=== PATIENT | male | born 1935 | race Caucasian/White ===

== ENCOUNTER 2020-11-07 13:48 | Outpatient (RCR) | payer MEDICARE, BC, SELFPAY | END 2020-11-07 23:59 | LOC: IMMUN 13:48 | PROVIDERS: PCP Internal Medicine; Visit Provider Family Medicine | DX: Z23 Encounter for immunization (principal) | CPT/HCPCS: 0011A; 0012A ==

== ENCOUNTER → 2025-06-21 05:00 | Outpatient (REF) | payer MEDICARE, SELFPAY ==
[2025-06-21 08:28] LABS: Hematocrit 21.5 % (40-54); Hemoglobin 6.9 g/dL (13.0-16.5); Mean Corp Hgb Conc 32.1 g/dL (32-36); Mean Corpuscular Volume 89.6 fL (80-94); Mean Platelet Vol. 8.7 fl (6.2-12.0); Platelet Count 457 K/mm3 (150-450); RBC Distribution Width CV 16.8 % (11.6-14.6); RBC Distribution Width SD 55.8 fl (35.1-43.9); Red Blood Count 2.40 M/mm3 (4.6-6.2); White Blood Count 14.3 K/mm3 (4.4-11.0)
[2025-06-21 08:44] LABS: Anion Gap 10 (5-15); BUN 47 mg/dL (4-19); BUN/Creat Ratio 25.4 RATIO (10-20); Calcium,Total 8.4 mg/dL (7.6-11.0); Carbon Dioxide 29.6 mmol/L (21.0-32.0); Chloride 97 mmol/L (98-108); Glucose 93 mg/dL (70-99); Potassium 3.8 mmol/L (3.3-5.1)
== END ==
LOC: OLS.ACH 05:00
PROVIDERS: PCP Internal Medicine; Visit Provider Internal Medicine
DX: N18.30 Chronic kidney disease, stage 3 unspecified (principal); D53.9 Nutritional anemia, unspecified
CPT/HCPCS: 36415; 80048; 85027

== ENCOUNTER → 2025-06-24 05:00 | Outpatient (REF) | payer MEDICARE, SELFPAY ==
--- OUTSIDE RECORDS SUMMARY | 2025-06-24 04:10 | XMS RPT_ITS | CCD ---
Author Organization [facility] Care Team Providers Care Chief Inspector Name Role Phone Aliya Tadeo RN Unavailable Unavailable Spencer Cartagena Attending Unavailable Negro Messer Primary Care Unavailable SAGAR GILLIAM Attending Unavailable ALEJANDRO QUEEN Attending Unavailable HARVINDER, EBER Attending Unavailable EBER HESS Attending Unavailable CLARA, ALBARO Admitting Unavailable CLARA, ALBARO Attending Unavailable PRECIOUS LEWIS Consulting Unavailable Aliya Tadeo RN Unavailable Unavailable Unavailable Unavailable Unavailable Medications Current Medications Medication Drug Class(es) Dates Sig (Normalized) Sig (Original) atorvastatin 20 mg oral tablet (10 sources) HMG-CoA Reductase Inhibitor Start: 04-17-2025 End: 04-17-2026 take 1 tablet by mouth once daily atorvastatin (Lipitor) 20 MG tablet Take 1 tablet (20 mg) by mouth Nightly. 30 tablet 1 04/17/2025 04/17/2026 Active Start: 04-06-2025 End: 04-17-2025 docusate sodium 50 mg / sennosides, intermediate 8.6 mg oral tablet (10 sources) Start: 04-17-2025 End: 04-17-2026 take 2 tablets by mouth twice daily senna-docusate sodium (Senokot-S) 8.6-50 MG tablet Take 2 tablets by mouth 2 times daily. 120 tablet 11 04/17/2025 04/17/2026 Active Start: 04-10-2025 End: 04-17-2026 hydrALAZINE hydrochloride 10 mg oral tablet (12 sources) Arteriolar Vasodilator Start: 04-15-2025 End: 04-17-2026 take 1 tablet by mouth three times daily hydrALAZINE (Apresoline) 10 MG tablet Take 1 tablet (10 mg) by mouth 3 times daily. 90 tablet 1 04/17/2025 04/17/2026 Active Start: 04-06-2025 End: 04-15-2025 24 hr metoprolol succinate 25 mg extended release oral tablet (10 sources) beta-Adrenergic Adán Start: 04-10-2025 End: 04-18-2026 take 1 tablet by mouth once daily metoprolol succinate XL (Toprol-XL) 25 MG 24 hr tablet Take 1 tablet (25 mg) by mouth daily. Do not crush or chew. 30 tablet 11 04/18/2025 04/18/2026 Active spironolactone 25 mg oral tablet (10 sources) Aldosterone Antagonist Start: 04-13-2025 End: 04-18-2026 take 1 tablet by mouth once daily spironolactone (Aldactone) 25 MG tablet Take 1 tablet (25 mg) by mouth daily. 30 tablet 11 04/18/2025 04/18/2026 Active torsemide (10 sources) Loop Diuretic Start: 04-18-2025 End: 04-18-2026 take 1 tablet by mouth once daily Torsemide 40 MG tablet Take 40 mg by mouth daily. 40 tablet 1 04/18/2025 04/18/2026 Active Start: 04-16-2025 End: 04-17-2025 Start: 04-13-2025 End: 04-14-2025 (2 sources) Start: 04-18-2025 End: 04-18-2026 Completed/Discontinued Medications Medication Drug Class(es) Dates Sig (Normalized) Sig (Original) carvedilol 3.125 mg oral tablet (2 sources) alpha-Adrenergic Adán, beta-Adrenergic Adán Start: 04-06-2025 End: 04-10-2025 2 ml furosemide 10 mg/ml injection (14 sources) Loop Diuretic Start: 04-14-2025 End: 04-16-2025 Start: 04-06-2025 End: 04-08-2025 Start: 04-05-2025 End: 04-12-2025 10 ml lidocaine hydrochlorid e 10 mg/ml injection (4 sources) Antiarrhythmic, Amide Local Anesthetic Start: 04-14-2025 End: 04-14-2025 Start: 04-08-2025 End: 04-17-2025 1 ml LORazepam 2 mg/ml injection (2 sources) Benzodiazepine Start: 04-06-2025 End: 04-08-2025 take 0.5 mg intravenously every four hours as needed for anxiety 50 ml magnesium sulfate 40 mg/ml injection (4 sources) Start: 04-11-2025 End: 04-11-2025 Start: 04-08-2025 End: 04-08-2025 mupirocin 0.02 mg/mg topical ointment (2 sources) RNA Synthetase Inhibitor Antibacterial Start: 04-08-2025 End: 04-13-2025 1 ml naloxone hydrochloride 0.4 mg/ml injection (2 sources) Opioid Antagonist Start: 04-09-2025 End: 04-17-2025 pantoprazole 40 mg delayed release oral tablet (2 sources) Proton Pump Inhibitor Start: 04-06-2025 End: 04-17-2025 perflutren protein A microsphere (Optison) 3 mL in sodium chloride (PF) 0.9 % 10 mL IV (2 sources) Start: 04-05-2025 End: 04-06-2025 polyethylene glycol 3350 [id number] mg powder for oral solution (4 sources) Osmotic Laxative Start: 04-10-2025 End: 04-17-2025 take 17 g by mouth every twenty-four hours as needed for constipation microencapsulated potassium chloride 10 meq extended release oral tablet (6 sources) Start: 04-13-2025 End: 04-13-2025 Start: 04-10-2025 End: 04-10-2025 Start: 04-08-2025 End: 04-08-2025 50 ml sodium chloride 9 mg/m l injection (2 sources) Start: 06-21-2025 End: 06-22-2025 250 mL/hr, IntraVENous, Administer over 10 Minutes, As needed, For use in priming line prior to transfusion (prime via gravity) and flush line post transfusion, Starting on Sat06/21/25 at 2020, For 1 dose, For use in priming line prior to transfusion (prime via gravity) and flush line post transfusion ONLY. Discontinue once line has been cleared of remaining blood product. (6 sources) Start: 04-06-2025 End: 04-08-2025 Start: 04-05-2025 End: 04-17-2025 take 4 mg by mouth every eight hours as needed for nausea and vomiting [Order 1 Start] Name: ondansetron ODT (Zofran-ODT) disintegrating tablet 4 mg Signed Summary: 4 mg, Oral, Every 8 hours PRN, nausea, vomiting, Starting on Sat04/05/25 at 2049, 1st Line. If inadequate response within 60 minutes, proceed to next-line agent or contact provider if no further options ordered. Patient should allow tablet to dissolve on tongue. Do not remove from blister pack until just before administering. [Order 1 End] [Order 2 Start] Name: ondansetron (Zofran) injection 4 mg Signed Summary: 4 mg, IntraVENous, Every 6 hours PRN, nausea, vomiting, Starting on Sat04/05/25 at 2049, 1st Line. Give IV if patient is unable to take orally. If inadequate response within 60 minutes, proceed to next-line agent or contact provider if no further options ordered. [Order 2 End] Start: 04-05-2025 End: 04-17-2025 take 650 mg by mouth every six hours as needed for pain and fever [Order 1 Start] Name: acetaminophen (Tylenol) tablet 650 mg Signed Summary: 650 mg, Oral, Every 6 hours PRN, mild pain (1-3), fever, For temp greater than 100.4 F (38 C), Starting on Sat04/05/25 at 2049, Maximum dose of acetaminophen is 4000 mg from all sources in 24 hours. [Order 1 End] [Order 2 Start] Name: acetaminophen (Tylenol) suppository 650 mg Signed Summary: 650 mg, Rectal, Every 6 hours PRN, fever, For temp greater than 100.4 F (38 C), Starting on Sat04/05/25 at 2049, Administer if oral route cannot be used. Maximum dose of acetaminophen is 4000 mg from all sources in 24 hours. [Order 2 End] Problems Problem Classification Problem Date Documented Da te Episodic/Chronic Acute and unspecified renal failure (8 sources) Acute renal failure syndrome; Translations: [Acute kidney failure, unspecified] Onset: 05-03-2025 05-03-2025 Episodic Cardiac dysrhythmias (8 sources) Premature atrial contraction; Translations: [Atrial premature depolarization] Onset: 05-03-2025 05-03-2025 Chronic Chronic kidney disease (4 sources) Chronic kidney disease, unspecified; Translations: [Anemia in chronic kidney disease] Onset: 05-03-2025 Chronic Chronic kidney disease (2 sources) Chronic kidney disease; Translations: [Chronic kidney disease, stage 3b (HCC)] Onset: 05-03-2025 Congestive heart failure; nonhypertensive (20 sources) Acute congestive heart failure; Translations: [Heart failure, unspecified] Onset: 04-05-2025 04-05-2025 Chronic Coronary atherosclerosis and other heart disease (8 sources) Coronary arteriosclerosis; Translations: [Atherosclerotic heart disease of [place] coronary artery without angina pectoris] Onset: 05-03-2025 05-03-2025 Chronic Deficiency and other anemia (6 sources) Anemia co-occurrent and due to chronic kidney disease stage 3; Translations: [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 chronic kidney disease (HCC)] Onset: 05-03-2025 05-03-2025 Chronic Deficiency and other anemia (2 sources) Anemia in chronic kidney disease; Translations: [Anemia in chronic kidney disease] Onset: 05-03-2025 Chronic Deficiency and other anemia (2 sources) Anemia; Translations: [Anemia, unspecified] 04-05-2025 Episodic Deficiency and other anemia (2 sources) Anemia, unspecified; Translations: [Anemia, unspecified] Onset: 04-05-2025 Episodic Malaise and fatigue (1 source) Asthenia; Translations: [Other malaise] 05-12-2025 Episodic Other aftercare (1 source) Patient encounter status; Translations: [Encounter for palliative care] 05-12-2025 Episodic Other lower respiratory disease (3 sources) Dyspnea; Translations: [Shortness of breath] Onset: 04-05-2025 04-05-2025 Episodic Other lower respiratory disease (2 sources) Hypoxia; Translations: [Hypoxemia] 04-05-2025 Episodic Other lower respiratory disease (1 source) Shortness of breath; Translations: [Shortness of breath] Onset: 04-05-2025 Episodic Other lower respiratory disease (2 sources) Hypoxemia; Translations: [Hypoxemia] Onset: 04-05-2025 Episodic Other screening for suspected conditions (not mental disorders or infectious disease) (8 sources) Computed tomography result abnormal; Translations: [Abnormal findings on diagnostic imaging of other specified body structures] Onset: 05-03-2025 05-03-2025 Chronic Pleurisy; pneumothorax; pulmonary collapse (9 sources) Pleural effusion; Translations: [Pleural effusion, not elsewhere classified] Onset: 05-03-2025 05-03-2025 Episodic Results Test Name Value Interpretation Reference Range Facility BASIC METABOLIC PANELon 10- Anion gap [Moles/Vol] 15 mmol/L High 3-13 [facility] Comment on above: Performed By: #### L [id number] ####Patrol Conductor: UNA ARCE ([id number])[facility] [place] ([facility])[address] Calcium [Mass/Vol] 8.4 mg/dL Low 8.8-10.0 [facility] Comment on above: Performed By: #### L AB15 ####Patrol Conductor: UNA ARCE ([id number])[facility] [place] ([facility])[address] Chloride [Moles/Vol] 97 mmol/L Low 98-107 [facility] Comment on above: Performed By: #### L AB15 ####Patrol Conductor: UNA ARCE ([id number])[facility] [place] ([facility])[address] CO2 [Moles/Vol] 25 mmol/L Normal 23-31 [facility] Comment on above: Performed By: #### L AB15 ####Patrol Conductor: UNA ARCE ([id number])[facility] [place] ([facility])[address] Creatinine [Mass/Vol] 1.97 mg/dL High 0.72-1.25 [facility] Comment on above: Performed By: #### L AB15 ####Patrol Conductor: UNA ARCE ([id number])[facility] [place] ([facility])[address] [place] [address] [place] GLOMERULAR FILTRATION RATE ML/MIN/1.73 SQ M.PREDICTED 31.9 mL/min/1.73m*2 Low >60.0 [facility] Comment on above: Result Comment: Calc ulation based on the Chronic Kidney Disease Epidemiology Collaboration (CKD-EPI) equation refit without adjustment for race Performed By: #### L AB15 ####Patrol Conductor: UNA ARCE ([id number])[facility] (HLAB)[address] Glucose [Mass/Vol] 108 mg/dL Normal 82-115 [facility] Comment on above: Performed By: #### L AB15 ####Patrol Conductor: UNA ARCE ([id number])[facility] Potassium [Moles/Vol] 4.1 mmol/L Normal 3.5-5.1 [facility] Comment on above: Result Comment: [facility] potassium values may be up to 0.5 mmol/L lower than serum values. Performed By: #### L AB15 ####Patrol Conductor: UNA ARCE ([id number])[facility] Sodium [Moles/Vol] 137 mmol/L Normal 136-145 [facility] Comment on above: Performed By: #### L AB15 ####Patrol Conductor: UNA ARCE ([id number])[facility] ([facility])[address] Urea nitrogen [Mass/Vol] 51 mg/dL High 9-23 [facility] Comment on above: Performed By: #### L AB15 ####Patrol Conductor: UNA ARCE ([id number])[facility] BLOOD TYPE AND SCREEN GELon 06-21-2025 ABO GROUPING A Normal [facility] Comment on above: Performed By: #### L [id number] ####Patrol Conductor: UNA ARCE ([id number])[facility] ([facility])[address] [place] [address] RH TYPE IN BLOOD Negative Normal [facility] Comment on above: Performed By: #### L [id number] ####Patrol Conductor: UNA ARCE ([id number])[facility] ([facility])[address] [place], [place] [id number] [place] [address] Basic Metabolic Profile (BMP )on 06-21-2025 BUN/CRE 25.4 RATIO High 10-20 [facility] Comment on above: Order Comment: 212.1 Performed By: #### L 500.2500, L100.0500 #### [facility] [address] [place], [address] Calcium [Mass/Vol] 8.4 mg/dL Normal 7.6-11.0 [facility] Comment on above: Order Comment: 212.1 Performed By: #### L 500.2500, L100.0500 #### [facility] [address] [place], [address] Chloride [Moles/Vol] 97 mmol/L Low 98-[address] [facility] Comment on above: Order Comment: 212.1 Performed By: #### L 500.2500, L100.0500 #### [facility] [address] [place], [address] CO2 [Moles/Vol] 29.6 mmol/L Normal 21.0-32.0 [facility] Comment on above: Order Comment: 212.1 Performed By: #### L 500.2500, L100.0500 #### [facility] [address] [place], [address] Creatinine [Mass/Vol] 1.86 mg/dL High 0.70-1.20 [facility] Comment on above: Order Comment: 212.1 Performed By: #### L 500.2500, L100.0500 #### [facility] [address] [place], [address] GAP 10 Normal 5-15 [facility] Comment on above: Order Comment: 212.1 Performed By: #### L 500.2500, L100.0500 #### [facility] [address] [place], [address] GFR/1.73 sq M.predicted among non-blacks MDRD (S/P/Bld) [Vol rate/Area] 34 mL/min/{1.73_m2} Low >60 [facility] Comment on above: Order Comment: 212.1 Result Comment: mL/m in/1.73m2 CKD-EPI Creatinine Equation (2020) Performed By: #### L 500.2500, L100.0500 #### [facility] [address] [place], [address] Glucose [Mass/Vol] 93 mg/dL Normal 70-99 [facility] Comment on above: Order Comment: 212.1 Performed By: #### L 500.2500, L100.0500 #### [facility] [address] [place], [address] Potassium [Moles/Vol] 3.8 mmol/L Normal 3.3-5.1 [facility] Comment on above: Order Comment: 212.1 Performed By: #### L 500.2500, L100.0500 #### [facility] [address] [place], [address] Sodium [Moles/Vol] 136 mmol/L Normal 133-145 [facility] Comment on above: Order Comment: 212.1 Performed By: #### L 500.2500, L100.0500 #### [facility] [address] [place], [address] Urea nitrogen [Mass/Vol] 47 mg/dL High 4-19 [facility] Comment on above: Order Comment: 212.1 Performed By: #### L 500.2500, L100.0500 #### [facility] [address] [place], [address] Basic metabolic 1998 panelon 06-21-2025 Anion gap [Moles/Vol] 15 mmol/L High 3 - 13 mmol/L [facility] Calcium [Mass/Vol] 8.4 mg/dL Low 8.8 - 10. 0 mg/dL [facility] Chloride [Moles/Vol] 97 mmol/L Low 98 - 10 7 mmol/L [facility] CO2 [Moles/Vol] 25 mmol/L 23 - 31 mmol/L [facility] Creatinine [Mass/Vol] 1.97 mg/dL High 0.72 - 1.25 mg/dL [facility] GFR/1.73 sq M.predicted (S/P/Bld) [Vol rate/Area] 31.9 mL/min Low - PINF [facility] Comment on above: Calculation based on the Chronic Kidney Disease Epidemiology Collaboration (CKD-EPI) equation refit without adjustment for race Glucose [Mass/Vol] 108 mg/dL 82 - 115 mg/dL [facility] Interpretation and review of laboratory results Abnormal [facility] Potassium [Moles/Vol] 4.1 mmol/L 3.5 - 5.1 mmol/L [facility] Comment on above: Plasma potassium traci ues may be up to 0.5 mmol/L lower than serum values. Sodium [Moles/Vol] 137 mmol/L 136 - 145 mmol/L [facility] Urea nitrogen [Mass/Vol] 51 mg/dL High 9 - 23 mg/d L [facility] Blood type and Crossmatch pa valente (Bld)on 06-21-2025 ABO group Nom (Bld) A [facility] Blood group antibody screen GEL Ql Negative [facility] D Ag Ql (RBC) Negative [facility] CBC W Auto Differential pane l (Bld)Ordered By: Sallie Powell on 06-21-2025 Erythrocyte distribution width (RBC) [Ratio] 16.7 % High 11.5 - 15.0 % [facility] Hematocrit (Bld) [Volume fraction] 23.3 % Low 40.0 - 52.0 % [facility] Hemoglobin (Bld) [Mass/Vol] 7.4 g/dL Low 13.0 - 18.0 g/dL [facility] Interpretation and review of laboratory results Abnormal [facility] MCH (RBC) [Entitic mass] 29 pg 26. 0 - 34.0 pg [facility] MCHC (RBC) [Mass/Vol] 31.8 % 30.5 - 36.0 % [facility] MCV (RBC) [Entitic vol] 91.4 fL 77.0 - 99.0 fL [facility] Platelet mean volume (Bld) [Entitic vol] 8.5 fL Low 9.0 - 12.7 fL [facility] Platelets (Bld) [#/Vol] 513 10*3/uL High 140 - 440 10*3/uL [facility] RBC (Bld) [#/Vol] 2.55 10*6/uL Low 4.40 - 5.9 0 10*6/uL [facility] WBC (Bld) [#/Vol] 16.8 10*3/uL High 3.6 - 10.7 10*3/uL [facility] CBC WITH AUTO DIFFERENTIALon 06-21-2025 Erythrocyte distribution width (RBC) [Ratio] 16.7 % High 11.5-15.0 [facility] Comment on above: Performed By: #### L [id number], [id number] ####Patrol Conductor: UNA ARCE ([id number])[facility] ([facility])[address] [place] [address] Hematocrit (Bld) [Volume fraction] 23.3 % Low 40.0-52.0 [facility] Comment on above: Performed By: #### L [id number], [id number] ####Patrol Conductor: UNA ARCE ([id number])[facility] ([facility])[address] [place] [address] Hemoglobin (Bld) [Mass/Vol] 7.4 g/dL Low 13.0-18.0 [facility] Comment on above: Performed By: #### L [id number], [id number] ####Patrol Conductor: UNA ARCE ([id number])[facility] ([facility])[address] [place] [address] MCH (RBC) [Entitic mass] 29.0 pg Normal 26.0-34.0 [facility] Comment on above: Performed By: #### L [id number], [id number] ####Patrol Conductor: UNA ARCE ([id number])[facility] ([facility])[address] MCHC 31.8 % Normal 30.5-36.0 [facility] Comment on above: Performed By: #### L [id number], [id number] ####Patrol Conductor: UNA ARCE ([id number])[facility] [place] (SB[facility]AB)[address] MCV (RBC) [Entitic vol] 91.4 fL Normal 77.0-99.0 [facility] Comment on above: Performed By: #### L [id number], [id number] ####Patrol Conductor: UNA ARCE ([id number])[facility] [place] ([facility])[address] Platelet mean volume (Bld) [Entitic vol] 8.5 fL Low 9.0-12.7 [facility] Comment on above: Performed By: #### Gilbert [id number], [id number] ####Patrol Conductor: UNA ARCE ([id number])[facility] [place] ([facility])[address] Platelets (Bld) [#/Vol] 513 10*3/uL High 140-440 [facility] Comment on above: Performed By: #### L [id number], [id number] ####Patrol Conductor: UNA ARCE ([id number])[facility] [place] ([facility])[address] RBC (Bld) [#/Vol] 2.55 10*6/uL Low 4.40-5.90 [facility] Comment on above: Performed By: #### L [id number], [id number] ####Patrol Conductor: UNA ARCE ([id number])[facility] [place] ([facility])[address] WBC (Bld) [#/Vol] 16.8 10*3/uL High 3.6-10.7 [facility] Comment on above: Performed By: #### L [id number], [id number] ####Patrol Conductor: UNA ARCE ([id number])[facility] ([facility])[address] [place] [address] CBC-Complete Blood Cnt No Di ffon 06-21-2025 Erythrocyte distribution width (RBC) [Ratio] 16.8 % High 11.6-14.6 [facility] Comment on above: Order Comment: 212.1 Performed By: #### L 500.2500, L100.0500 #### [facility] [address] [place], [address] Hematocrit (Bld) [Volume fraction] 21.5 % Low 40-54 [facility] Comment on above: Order Comment: 212.1 Performed By: #### L 500.2500, L100.0500 #### [facility] [address] [place], [address] Hemoglobin (Bld) [Mass/Vol] 6.9 g/dL Low 13.0-16.5 [facility] Comment on above: Order Comment: 212.1 Performed By: #### L 500.2500, L100.0500 #### [facility] [address] [place], [address] MCH (RBC) [Entitic mass] 28.8 pg Normal 27.0-32.0 [facility] Comment on above: Order Comment: 212.1 Performed By: #### L 500.2500, L100.0500 #### [facility] [address] [place], [address] MCHC (RBC) [Mass/Vol] 32.1 g/dL Normal 32-36 [facility] Comment on above: Order Comment: 212.1 Performed By: #### L 500.2500, L100.0500 #### [facility] [address] [place], [address] MCV (RBC) [Entitic vol] 89.6 fL Normal 80-94 [facility] Comment on above: Order Comment: 212.1 Performed By: #### L 500.2500, L100.0500 #### [facility] [address] [place], [address] Platelet mean volume (Bld) [Entitic vol] 8.7 fL Normal 6.2-12.0 [facility] Comment on above: Order Comment: 212.1 Performed By: #### L 500.2500, L100.0500 #### [facility] [address] [place], [address] Platelets (Bld) [#/Vol] 457 10*3/uL High 150-450 [facility] Comment on above: Order Comment: 212.1 Performed By: #### L 500.2500, L100.0500 #### [facility] [address] [place], [address] RBC (Bld) [#/Vol] 2.40 10*6/uL Low 4.6-6.2 [facility] Comment on above: Order Comment: 212.1 Performed By: #### L 500.2500, L100.0500 #### [facility] [address] [place], [address] RDW SD 55.8 fl High 35.1-43.9 [facility] Comment on above: Order Comment: 212.1 Performed By: #### L 500.2500, L100.0500 #### [facility] [address] [place], [address] WBC (Bld) [#/Vol] 14.3 10*3/uL High 4.4-11.0 [facility] Comment on above: Order Comment: 212.1 Performed By: #### L 500.2500, L100.0500 #### [facility] [address] [place], [address] ECG 12-LEADon 06-21-2025 ECG 12-LEAD IMPRESSION: Sinus rhythm Atrial premature complexes Left anterior fascicular block Similar to prior on 04/13/25 Electronically Signed On 06-21-2025 23:12:12 EDT by Sagar Gilliam Normal [facility] ED Nursing Noteon 06-21-2025 ED Nursing Note This RN at bedside for first 15 minutes of blood transfusion. Pt tolerating transfusion. VS updated in system. Normal [facility] ED Nursing Note Patient arrives via EMS from [facility] following bloodwork that showed low hemoglobin. No overt signs of bleeding on arrival. Patient A&O4. Patient does endorse previous blood transfusions. Normal [facility] ED Provider Noteon ED Provider Note Normal [facility] - Hematology and Cell countson 06-21-2025 Eosinophils (Bld) [#/Vol] 0.3 10*3/uL 0.0 - 0.5 10*3/uL [facility] Eosinophils/100 WBC (Bld) 2 % 0 - 6 % [facility] Giant platelets LM Ql (Bld) Rare Abnormal (none) [facility] Hypochromia Ql (Bld) Slight Abnormal (none) [facility] Lymphocytes (Bld) [#/Vol] 4 10*3/uL 1.0 - 4.3 10*3/uL [facility] [facility] Lymph[facility]/100 WBC (Bld) 24 % 15 - 45 % [facility] Monocytes (Bld) [#/Vol] 1.2 10*3/uL High 0.0 - 0.9 10*3/uL [facility] Monocytes/100 WBC (Bld) 7 % 5 - 13 % [facility] Neutrophils (Bld) [#/Vol] 11.3 10*3/uL High 1.8 - 7.5 10*3/uL [facility] Ovalocytes LM Ql (Bld) Rare Abnormal (none) [facility] RBC morphology finding Nom (Bld) abnormal [facility] Segmented neutrophils/100 WBC (Bld) 67 % 38 - 82 % [facility] MANUAL DIFFERENTIAL (CELLAVI BANDAR)on 06-21-2025 BAND NEUTROPHILS TOTAL PER COUNTED LEUKOCYTES BY MANUAL COUNT Normal [facility] Comment on above: Performed By: #### L [id number], [id number] ####Patrol Conductor: UNA ARCE ([id number])[facility] (SBHLAB)[address] [place] [address] [place] BASOPHILS TOTAL PER COUNTED LEUKOCYTES BY MANUAL COUNT Normal [facility] Comment on above: Performed By: #### L [id number], [id number] ####Patrol Conductor: UNA ARCE ([id number])[facility] (SBHLAB)[address] [place] [address] [place] BLASTS TOTAL PER COUNTED LEUKOCYTES BY MANUAL COUNT Normal [facility] Comment on above: Performed By: #### L [id number], [id number] ####Patrol Conductor: UNA ARCE ([id number])[facility] [place] (SB[facility])[address] [place] [address] [place] EOSINOPHILS (10*3/UL) IN BLOOD-CELLAVISION 0.3 10*3/uL Normal 0.0-0.5 [facility] Comment on above: Performed By: #### L [id number], [id number] ####Patrol Conductor: UNA ARCE ([id number])[facility] [place] (SB[facility])[address] [place] [address] [place] EOSINOPHILS TOTAL PER COUNTED LEUKOCYTES BY MANUAL COUNT 2 High 0-1 [facility] Comment on above: Performed By: #### L [id number], [id number] ####Patrol Conductor: UNA ARCE ([id number])[facility] [place] (SB[facility])[address] [place] [address] [place] EOSINOPHILS/100 LEUKOCYTES IN BLOOD-CELLAVISION 2 % Normal 0-6 [facility] Comment on above: Performed By: #### L [id number], [id number] ####Patrol Conductor: UNA ARCE ([id number])[facility] (SBHLAB)[address] [place] [address] [place] HYPOCHROMIA (PRESENCE) IN BLOOD BY LIGHT MICROSCOPY Slight Abnormal (none) [facility] Comment on above: Performed By: #### L [id number], [id number] ####Patrol Conductor: UNA ARCE ([id number])[facility] (SBHLAB)[address] [place] [address] [place] LYMPHOCYTES (10*3/UL) IN BLOOD-CELLAVISION 4.0 10*3/uL Normal 1.0-4.3 [facility] Comment on above: Performed By: #### L [id number], [id number] ####Patrol Conductor: UNA ARCE ([id number])[facility] (SBHLAB)[address] [place] [address] [place] LYMPHOCYTES TOTAL PER COUNTED LEUKOCYTES BY MANUAL COUNT 24 Normal [facility] Comment on above: Performed By: #### L [id number], [id number] ####Patrol Conductor: UNA ARCE ([id number])[facility] [place] ([facility])[address] [place] [address] [place] LYMPHOCYTES/100 LEUKOCYTES IN BLOOD-CELLAVISION 24 % Normal 15-45 [facility] Comment on above: Performed By: #### L [id number], [id number] ####Patrol Conductor: UNA ARCE ([id number])[facility] [place] (SB[facility])[address] [place] [address] [place] METAMYELOCYTES TOTAL PER COUNTED LEUKOCYTES BY MANUAL COUNT [facility] Comment on above: Performed By: #### L [id number], [id number] ####Patrol Conductor: UNA ARCE ([id number])[facility] [place] (SB[facility])[address] [place] [address] [place] MONOCYTES (10*3/UL) IN BLOOD-CELLAVISION 1.2 10*3/uL High 0.0-0.9 [facility] Comment on above: Performed By: #### L [id number], [id number] ####Patrol Conductor: UNA ARCE ([id number])[facility] [place] ([facility])[address] [place] [address] [place] MONOCYTES TOTAL PER COUNTED LEUKOCYTES BY MANUAL COUNT 7 Normal [facility] Comment on above: Performed By: #### L [id number], [id number] ####Patrol Conductor: UNA ARCE ([id number])[facility] (SBHLAB)[address] [place] [address] [place] MONOCYTES/100 LEUKOCYTES IN BLOOD-LUCIANA 7 % Normal -13 [facility] Comment on above: Performed By: #### L [id number], [id number] ####Patrol Conductor: UNA ARCE ([id number])[facility] (SBHLAB)[address] MYELOCYTES COUNTED BY MANUAL COUNT [facility] Comment on above: Performed By: #### L [id number], [id number] ####Patrol Conductor: UNA ARCE ([id number])[facility] (SBHLAB)[address] NEUTROPHILS TOTAL PER COUNTED LEUKOCYTES BY MANUAL COUNT 67 [facility] Comment on above: Performed By: #### L [id number], [id number] ####Patrol Conductor: UNA ARCE ([id number])[facility] (SBHLAB)[address] [place] [address] [place] OVALOCYTES PRESENCE IN BLOOD BY LIGHT MICROSCOPY Rare Abnormal (none) [facility] Comment on above: Performed By: #### L [id number], [id number] ####Patrol Conductor: UNA ARCE ([id number])[facility] [place] (SB[facility])[address] PLATELETS GIANT PRESENCE IN BLOOD BY LIGHT MICROSCOPY Rare Abnormal (none) [facility] Comment on above: Performed By: #### L [id number], [id number] ####Patrol Conductor: UNA ARCE ([id number])[facility] [place] (SB[facility])[address] [place] [address] [place] PROMYELOCYTES TOTAL PER COUNTED LEUKOCYTES BY MANUAL COUNT [facility] Comment on above: Performed By: #### L [id number], [id number] ####Patrol Conductor: UNA ARCE ([id number])[facility] [place] (SB[facility])[address] RBC MORPHOLOGY IN BLOOD abnormal Normal [facility] Comment on above: Performed By: #### L [id number], [id number] ####Patrol Conductor: UNA ARCE ([id number])[facility] [place] (SB[facility])[address] SEGMENTED NEUTROPHILS (10*3/UL) IN BLOOD-CELLAVISION 11.3 10*3/uL High 1.8-7.5 [facility] Comment on above: Performed By: #### L [id number], [id number] ####Patrol Conductor: UNA ARCE ([id number])[facility] [place] (SB[facility])[address] SEGMENTED NEUTROPHILS/100 LEUKOCYTES-CE 67 % Normal 38-82 [facility] Comment on above: Performed By: #### L [id number], [id number] ####Patrol Conductor: UNA ARCE ([id number])[facility] [place] (SB[facility])[address] UNCLASSIFIED CELLS TOTAL PER COUNTED LEUKOCYTES BY MANUAL COUNT [facility] Comment on above: Performed By: #### L [id number], [id number] ####Patrol Conductor: UNA ARCE ([id number])[facility] [place] (SB[facility])[address] VARIANT LYMPHOCYTES TOTAL PER COUNTED LEUKOCYTES BY MANUAL COUNT [facility] Comment on above: Performed By: #### L [id number], [id number] ####Patrol Conductor: UNA ARCE ([id number])[facility] [place] (SBHLAB)[address] No Panel Informationon 06-21 P [place] 17 degrees [facility] [place] Interval 189 ms [facility] QRS [place] -50 degrees [facility] QRSD Interval 116 ms [facility] QT Interval 434 ms [facility] QTC Interval 436 ms [facility] T Wave [place] 37 degrees [facility] Sinus rhythm Atrial premature complexes Left anterior fascicular block Similar to prior on 04/13/25 Electronically Signed On 06-21-2025 23:12:12 EDT by Sagar Gilliam CV Sagar Carrasquillo DO - 06/21/2025 IMPRESSION: Sinus rhythm Atrial premature complexes Left anterior fascicular block Similar to prior on 04/13/25 Electronically Signed On 06-21-2025 23:12:12 EDT by Sagar Gilliam [facility] Blood Expiration Date S [facility] Crossmatch interpretation COMP [facility] Dispense Status Transfused [facility] lt Product Blood Type 600 [facility] PRODUCT CODE [id number] [facility] Unit ABO A [facility] Unit Number [id number] [facility] RH Negative [facility] Unit Volume 300 mL [facility] Atypical Lymphocytes Manual [facility] Bands Manual [facility] Basophils Manual [facility]th Blasts Manual [facility] Eosinophils Manual 2 High 0 - 1 [facility] Interpretation and review of laboratory results Abnormal [facility] Lymphocytes Manual 24 [facility] Metamyelocytes Manual [facility] Monocytes Manual 7 [facility] alth Myelocytes Manual [facility] ealt Neutrophils Manual 67 [facility] Promyelocytes Manual [facility] Unclassified Cells, Manual [facility] Vital signson 06-21-2025 Heart rate 63 /min bpm [facility] 36on 06-18-2025 36 Noted; thank you. Normal [facility] ealt System [facility] 36on 06-17-2025 36 Normal [facility] 36 Normal [facility] BASIC METABOLIC PANELon Anion gap [Moles/Vol] 13 mmol/L Normal -13 [facility] Comment on above: Performed By: #### L AB15 ####Patrol Conductor: ANAHY AVILA ([id number])[facility] ([address] Calcium [Mass/Vol] 9.2 mg/dL Normal 8.8-10.0 [facility] Comment on above: Performed By: #### L AB15 ####Patrol Conductor: ANAHY AVILA ([id number])[facility] (SWRLAB)[address] [place] [address] [place] Chloride [Moles/Vol] 98 mmol/L Normal 98-107 [facility] Comment on above: Performed By: #### L AB15 ####Patrol Conductor: ANAHY AVILA ([id number])[facility] [place] (SWRLAB)[address] [place] [address] [place] CO2 [Moles/Vol] 29 mmol/L Normal 23-31 [facility] Comment on above: Performed By: #### L AB15 ####Patrol Conductor: ANAHY AVILA ([id number])[facility] JAN [place] (SWRLAB)[address] [place] [address] [place] Creatinine [Mass/Vol] 2.05 mg/dL High 0.72-1.25 [facility] Comment on above: Performed By: #### L AB15 ####Patrol Conductor: ANAHY AVILA ([id number])[facility] [place] (SWRLAB)[address] [place] [address] [place] GLOMERULAR FILTRATION RATE ML/MIN/1.73 SQ M.PREDICTED 30.4 mL/min/1.73m*2 Low >60.0 [facility] Comment on above: Result Comment: Calc ulation based on the Chronic Kidney Disease Epidemiology Collaboration (CKD-EPI) equation refit without adjustment for race Performed By: #### L AB15 ####Patrol Conductor: ANAHY AVILA ([id number])[facility] [place] (SWRLAB)[address] [place] [address] [place] Glucose [Mass/Vol] 109 mg/dL Normal 82-115 [facility] Comment on above: Performed By: #### L AB15 ####Patrol Conductor: ANAHY AVILA ([id number])[facility] [place] (SWRLAB)[address] [place] [address] [place] Potassium [Moles/Vol] 4.3 mmol/L Normal 3.5-5.1 [facility] Comment on above: Result Comment: [facility] potassium values may be up to 0.5 mmol/L lower than serum values. Performed By: #### L AB15 ####Patrol Conductor: ANAHY AVILA ([id number])[facility] [employer]AN (SWRLAB)[address] [place] [address] Sodium [Moles/Vol] 140 mmol/L Normal 136-145 [facility] Comment on above: Performed By: #### L [id number] ####Patrol Conductor: ANAHY AVILA ([id number])[facility] Trivie [place] (SWRLAB)[address] Urea nitrogen [Mass/Vol] 54 mg/dL High 9-23 [facility] Comment on above: Performed By: #### L [id number] ####Patrol Conductor: ANAHY AVILA ([id number])[facility] JAN [place] [employer] (SWRLAB)[address] [place] [address] Basic metabolic 1998 panelon 06-17-2025 Anion gap [Moles/Vol] 13 mmol/L 3 - 13 mmol/L [facility] Calcium [Mass/Vol] 9.2 mg/dL 8.8 - 10. 0 mg/dL [facility] Chloride [Moles/Vol] 98 mmol/L 98 - 10 7 mmol/L [facility] CO2 [Moles/Vol] 29 mmol/L 23 - 31 mmol/L [facility] Creatinine [Mass/Vol] 2.05 mg/dL High 0.72 - 1.25 mg/dL [facility] GFR/1.73 sq M.predicted (S/P/Bld) [Vol rate/Area] 30.4 mL/min Low - PINF [facility] Comment on above: Calculation based on the Chronic Kidney Disease Epidemiology Collaboration (CKD-EPI) equation refit without adjustment for race Glucose [Mass/Vol] 109 mg/dL 82 - 115 mg/dL [facility] Interpretation and review of laboratory results Abnormal [facility] Potassium [Moles/Vol] 4.3 mmol/L 3.5 - 5.1 mmol/L [facility] Comment on above: Plasma potassium traci ues may be up to 0.5 mmol/L lower than serum values. Sodium [Moles/Vol] 140 mmol/L 136 - 145 mmol/L [facility] Urea nitrogen [Mass/Vol] 54 mg/dL High 9 - 23 mg/d L [facility] CBC W Auto Differential pane l (Bld)Ordered By: Jessica Maldonado on 06-17-2025 Basophils (Bld) [#/Vol] 0.1 10*3/uL 0.0 - 0.2 10*3/uL [facility] Basophils/100 WBC (Bld) 0.7 % 0.0 - 2.0 % [facility] Eosinophils (Bld) [#/Vol] 0.4 10*3/uL 0.0 - 0.5 10*3/uL [facility] Eosinophils/100 WBC (Bld) 2.2 % 0.0 - 6.0 % [facility] Erythrocyte distribution width (RBC) [Ratio] 17.2 % High 11.5 - 15.0 % [facility] Hematocrit (Bld) [Volume fraction] 25.7 % Low 40.0 - 52.0 % [facility] Hemoglobin (Bld) [Mass/Vol] 8.2 g/dL Low 13.0 - 18.0 g/dL [facility] Immature granulocytes (Bld) [#/Vol] 0.2 10*3/uL High NINF - 0.1 10*3/uL [facility] Immature granulocytes/100 WBC (Bld) 1 % 0.0 - 2.0 % [facility] Interpretation and review of laboratory results Abnormal [facility] Lymphocytes (Bld) [#/Vol] 2.9 10*3/uL 1.0 - 4.3 10*3/uL [facility] Lymphocytes/100 WBC (Bld) 17.2 % 15.0 - 45.0 % [facility] MCH (RBC) [Entitic mass] 29.1 pg 26. 0 - 34.0 pg [facility] MCHC (RBC) [Mass/Vol] 31.9 % 30.5 - 36.0 % [facility] MCV (RBC) [Entitic vol] 91.1 fL 77.0 - 99.0 fL [facility] Monocytes (Bld) [#/Vol] 1.5 10*3/uL High 0.0 - 0.9 10*3/uL [facility] Monocytes/100 WBC (Bld) 9.1 % 5.0 - 13.0 % [facility] Neutrophils (Bld) [#/Vol] 11.5 10*3/uL High 1.8 - 7.5 10*3/uL [facility] Neutrophils/100 WBC (Bld) 69.8 % 38.0 - 82.0 % [facility] Nucleated RBC/100 WBC (Bld) [Ratio] 0 % [facility] Platelet mean volume (Bld) [Entitic vol] 8.7 fL Low 9.0 - 12.7 fL [facility] Comment on above: MPV is a calculated measurement using platelet volume ratio Platelets (Bld) [#/Vol] 517 10*3/uL High 140 - 440 10*3/uL [facility] RBC (Bld) [#/Vol] 2.82 10*6/uL Low 4.40 - 5.9 0 10*6/uL [facility] WBC (Bld) [#/Vol] 16.5 10*3/uL High 3.6 - 10.7 10*3/uL [facility] Moderate Anisocytosi s Slight Hypochromia [facility] CBC WITH AUTO DIFFERENTIALon 06-17-2025 Basophils (Bld) [#/Vol] 0.1 10*3/uL Normal 0.0-0.2 [facility] Comment on above: Performed By: #### L [id number] ####Patrol Conductor: ANAHY AVILA ([id number])[facility] JAN [place] (SWRLAB)[address] [place] [address] Basophils/100 WBC (Bld) 0.7 % Normal 0.0-2.0 [facility] Comment on above: Performed By: #### L [id number] ####Patrol Conductor: ANAHY AVILA ([id number])[facility] JAN [place] (SWRLAB)[address] [place] [address] [place] Eosinophils (Bld) [#/Vol] 0.4 10*3/uL Normal 0.0-0.5 [facility] Comment on above: Performed By: #### L [id number] ####Patrol Conductor: ANAHY AVILA ([id number])[facility] JAN [place] (SWRLAB)[address] [place] [address] [place] Eosinophils/100 WBC (Bld) 2.2 % Normal 0.0-6.0 [facility] Comment on above: Performed By: #### L [id number] ####Patrol Conductor: ANAHY AVILA ([id number])[facility] [place]YA [place] (SWRLAB)[address] [place] [address] Erythrocyte distribution width (RBC) [Ratio] 17.2 % High 11.5-15.0 [facility] Comment on above: Performed By: #### L [id number] ####Patrol Conductor: ANAHY AVILA ([id number])[facility] [place]YA [place] (SWRLAB)[address] [place] [address] Hematocrit (Bld) [Volume fraction] 25.7 % Low 40.0-52.0 [facility] Comment on above: Performed By: #### L [id number] ####Patrol Conductor: ANAHY AVILA ([id number])[facility] [place] (SWRLAB)[address] [place] [address] Hemoglobin (Bld) [Mass/Vol] 8.2 g/dL Low 13.0-18.0 [facility] Comment on above: Performed By: #### L [id number] ####Patrol Conductor: ANAHY AVILA ([id number])[facility] [place] (SWRLAB)[address] [place] [address] IMMATURE GRANS % 1.0 % Normal 0.0-2.0 [facility] Comment on above: Performed By: #### L [id number] ####Patrol Conductor: ANAHY AVILA ([id number])[facility] [place] (SWRLAB)[address] [place] [address] IMMATURE GRANS ABSOLUTE 0.2 10*3/uL High <0.1 [facility] Comment on above: Result Comment: YARELI [place] COMMENTS:Moderate AnisocytosisSlight Hypochromia Performed By: #### L [id number] ####Patrol Conductor: ANAHY AVILA ([id number])LYNETTE MONTOYA [place] (SWRLAB)[address] [place] [address] [place] Lymphocytes (Bld) [#/Vol] 2.9 10*3/uL Normal 1.0-4.3 [facility] Comment on above: Performed By: #### L [id number] ####Patrol Conductor: ANAHY AVILA ([id number])[facility] [place]YA [place] (SWRLAB)[address] [place] [address] Lymphocytes/100 WBC (Bld) 17.2 % Normal 15.0-45.0 [facility] Comment on above: Performed By: #### L [id number] ####Patrol Conductor: ANAHY AVILA ([id number])[facility] [place]YA [place] (SWRLAB)[address] [place] [address] MCH (RBC) [Entitic mass] 29.1 pg Normal 26.0-34.0 [facility] Comment on above: Performed By: #### L [id number] ####Patrol Conductor: ANAHY AVILA ([id number])LYNETTE MONTOYA [place] (SWRLAB)[address] [place] [address] MCHC 31.9 % Normal 30.5-36.0 [facility] Comment on above: Performed By: #### L [id number] ####Patrol Conductor: ANAHY AVILA ([id number])[facility] [place]YA [place] (SWRLAB)[address] [place] [address] MCV (RBC) [Entitic vol] 91.1 fL Normal 77.0-99.0 [facility] Comment on above: Performed By: #### L [id number] ####Patrol Conductor: ANAHY AVILA ([id number])[facility] [place] (SWRLAB)[address] [place] [address] Monocytes (Bld) [#/Vol] 1.5 10*3/uL High 0.0-0.9 [facility] Comment on above: Performed By: #### L [id number] ####Patrol Conductor: ANAHY AVILA ([id number])LYNETTE MONTOYA [place] (SWRLAB)[address] [place] [address] [place] Monocytes/100 WBC (Bld) 9.1 % Normal 5.0-13.0 [facility] Comment on above: Performed By: #### L [id number] ####Patrol Conductor: ANAHY AVILA ([id number])LYNETTE MONTOYA [place] (SWRLAB)[address] [place] [address] [place] NEUTROPHILS ABSOLUTE 11.5 10*3/uL High 1.8-7.5 [facility] Comment on above: Performed By: #### L [id number] ####Patrol Conductor: ANAHY AVILA ([id number])LYNETTE MONTOYA [place] (SWRLAB)[address] [place] [address] [place] Neutrophils/100 WBC (Bld) 69.8 % Normal 38.0-82.0 [facility] Comment on above: Performed By: #### L [id number] ####Patrol Conductor: ANAHY AVILA ([id number])LYNETTE MONTOYA R[place]TMAN (SWRLAB)[address] [place] [address] NRBC 0.0 /100 WBCs Normal 0.0-2.0 [facility] Comment on above: Performed By: #### L [id number] ####Patrol Conductor: ANAHY AVILA ([id number])LYNETTE MONTOYA RITTMAN (SWRLAB)[address] [place] [address] Platelet mean volume (Bld) [Entitic vol] 8.7 fL Low 9.0-12.7 [facility] Comment on above: Result Comment: MPV is a calculated measurement using platelet volume ratio Performed By: #### L [id number] ####Patrol Conductor: ANAHY AVILA ([id number])LYNETTE MONTOYA RITTMAN (SWRLAB)[address] [place] [address] Platelets (Bld) [#/Vol] 517 10*3/uL High 140-440 [facility] Comment on above: Performed By: #### L [id number] ####Patrol Conductor: ANAHY AVILA ([id number])[facility] MONTOYA R[place] (SWRLAB)[address] RBC (Bld) [#/Vol] 2.82 10*6/uL Low 4.40-5.90 [facility] Comment on above: Performed By: #### L [id number] ####Patrol Conductor: ANAHY AVILA ([id number])[facility] MONTOYA [place] (SWRLAB)[address] WBC (Bld) [#/Vol] 16.5 10*3/uL High 3.6-10.7 [facility] Comment on above: Performed By: #### L [id number] ####Patrol Conductor: ANAHY AVILA ([id number])[facility] MONTOYA R[place] (SWRLAB)[address] Progress Noteon 06-17-2025 Progress Note Normal [facility] Progress Note Normal [facility] Progress Noteon 06-02-2025 Progress Note Normal [facility] Progress Noteon 05-19-2025 Progress Note Normal [facility] Progress Noteon 05-11-2025 Progress Note Normal [facility] Progress Noteon 05-06-2025 Progress Note Normal [facility] Progress Noteon 05-04-2025 Progress Note Normal [facility] Progress Noteon 05-03-2025 Progress Note Normal [facility] Progress Note CT abdomen with mura l thickening involving the cecum and terminal ileum concern for neoplasm versus inflammation. Seen by GI with plan for EGD and colonoscopy once stable. -GI follow-up Normal [facility] Progress Note Noted to have irregular heart rhythm during hospitalization and multiple EKGs show sinus rhythm with frequent PACs. -Continue Toprol 25 mg p.o. daily Normal [facility] Progress Note Normal [facility] Progress Note Creatinine 1.46 on admission. Peak creatinine 1.78. Most recent creatinine 1.8 per labs 04/26/2025 - Continue to monitor - may have to accept a higher creatinine to keep him out of HF Normal [facility] Progress Note Bedside thoracentesi s 04/09/2025 with 1 L removed from the left and 600 mL removed from the right. Repeat left thoracentesis 04/14/2025 with 600 mL removed. 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 NO angina. - no ASA 2/2 anemia - continue Toprol 25 mg po daily - continue atorvastatin 20 mg po daily - not a candidate or invasive workup due to anemia, advanced age and frailty Normal [facility] Progress Note Normal [facility] Progress Noteon 04-27-2025 Progress Note Normal [facility] Progress Noteon 04-20-2025 Progress Note Normal [facility] Progress Noteon 04-19-2025 Progress Note Normal [facility] [id number] 04-18-2025 [id number] Normal [facility] [id number] 04-17-2025 [id number] Normal [facility] [id number] Intermediate/SNF - [facility] Member [address] [place] [address] [id number] Patient/Family Choice Normal [facility] [id number] Normal [facility] CBC W Auto Differential pane l (Bld)on 04-17-2025 Erythrocyte distribution width (RBC) [Ratio] 25.7 % High 11.5 - 15.0 % [facility] Hematocrit (Bld) [Volume fraction] 27.9 % Low 40.0 - 52.0 % [facility] Hemoglobin (Bld) [Mass/Vol] 7.9 g/dL Low 13.0 - 18.0 g/dL [facility] MCH (RBC) [Entitic mass] 23.8 pg Low 26. 0 - 34.0 pg [facility] [facility] MCHC (RBC) [Mass/Vol] 28.3 % Low 30.5 - 36.0 % [facility] MCV (RBC) [Entitic vol] 84 fL 77.0 - 99.0 fL [facility] Platelet mean volume (Bld) [Entitic vol] 9 fL 9.0 - 12.7 fL [facility] Platelets (Bld) [#/Vol] 419 10*3/uL 140 - 440 10*3/uL [facility] RBC (Bld) [#/Vol] 3.32 10*6/uL Low 4.40 - 5.9 0 10*6/uL [facility] WBC (Bld) [#/Vol] 12 10*3/uL High 3.6 - 10.7 10*3/uL [facility] CBC WITH AUTO DIFFERENTIALon 04-17-2025 Erythrocyte distribution width (RBC) [Ratio] 25.7 % High 11.5-15.0 [facility] Comment on above: Performed By: #### L [id number], [id number] ####Patrol Conductor: UNA ARCE ([id number])[facility] ([facility])[address] [place] [address] Hematocrit (Bld) [Volume fraction] 27.9 % Low 40.0-52.0 [facility] Comment on above: Performed By: #### L [id number], [id number] ####Patrol Conductor: UNA ARCE ([phone])[facility] ([facility])[address] [place] [address] Hemoglobin (Bld) [Mass/Vol] 7.9 g/dL Low 13.0-18.0 [facility] Comment on above: Performed By: #### L [id number], [id number] ####Patrol Conductor: UNA ARCE ([id number])[facility] [place] [address] MCH (RBC) [Entitic mass] 23.8 pg Low 26.0-34.0 [facility] Comment on above: Performed By: #### L [id number], [id number] ####Patrol Conductor: UNA ARCE ([id number])[facility] ([facility])[address] [place] [address] MCHC 28.3 % Low 30.5-36.0 [facility] Comment on above: Performed By: #### L [id number], [id number] ####Patrol Conductor: UNA ARCE ([id number])[facility] ([facility])[address] MCV (RBC) [Entitic vol] 84.0 fL Normal 77.0-99.0 [facility] Comment on above: Performed By: #### L [id number], [id number] ####Patrol Conductor: UNA ARCE ([id number])[facility] ([facility])[address] Platelet mean volume (Bld) [Entitic vol] 9.0 fL Normal 9.0-12.7 [facility] Comment on above: Performed By: #### [place] VA[address], [id number] ####Patrol Conductor: UNA ARCE ([id number])[facility]ITAL[facility] (SB[facility])[address] Platelets (Bld) [#/Vol] 419 10*3/uL Normal 140-440 [facility] Comment on above: Performed By: #### L [id number], [id number] ####Patrol Conductor: UNA ARCE ([id number])[facility] (SB[facility]AB)[address] RBC (Bld) [#/Vol] 3.32 10*6/uL Low 4.40-5.90 [facility] Comment on above: Performed By: #### L [id number], [id number] ####Patrol Conductor: UNA ARCE ([id number])[facility] ([facility])[address] WBC (Bld) [#/Vol] 12.0 10*3/uL High 3.6-10.7 [facility] Comment on above: Performed By: #### L [id number], [id number] ####Patrol Conductor: UNA ARCE ([id number])[facility] [place] ([facility])[address] COMPREHENSIVE METABOLIC PANE Anant 04-17-2025 Albumin [Mass/Vol] 2.1 g/dL Low 3.4-4.8 [facility] Comment on above: Performed By: #### L AB103, LAB17 ####Patrol Conductor: UNA ARCE ([phone])[facility] [place] ([facility])[address] ALP [Catalytic activity/Vol] 49 U/L Normal 40-150 [facility] Comment on above: Performed By: #### L AB103, LAB17 ####Patrol Conductor: UNA ARCE ([id number])[facility] [place] ([facility])[address] ALT [Catalytic activity/Vol] U/L Normal <40 [facility] Comment on above: Performed By: #### L AB103, LAB17 ####Patrol Conductor: NUA ARCE ([phone])[facility] (SBHLAB)[address] Anion gap [Moles/Vol] 10 mmol/L Normal 3-13 [facility] Comment on above: Performed By: #### L AB103, LAB17 ####Patrol Conductor: UNA ARCE ([phone])[facility] [place] ([facility])[address] AST [Catalytic activity/Vol] 22 U/L Normal <34 [facility] Comment on above: Performed By: #### L AB103, LAB17 ####Patrol Conductor: UNA ARCE ([id number])[facility] [place] ([facility])[address] Bilirubin [Mass/Vol] 0.5 mg/dL Normal <1.2 [facility] Comment on above: Performed By: #### L AB103, LAB17 ####Patrol Conductor: UNA ARCE ([id number])[facility]ITALAngel [place] (SBHLAB)[address] Calcium [Mass/Vol] 8.4 mg/dL Low 8.8-10.0 [facility] Comment on above: Performed By: #### L AB103, LAB17 ####Patrol Conductor: UNA ARCE ([phone])[facility] [place] (SBHLAB)[address] Chloride [Moles/Vol] 88 mmol/L Low 98-107 [facility] Comment on above: Performed By: #### L AB103, LAB17 ####Patrol Conductor: UNA ARCE ([id number])[facility]ITALAngel [place] (SBHLAB)[address] CO2 [Moles/Vol] 40 mmol/L High 23-31 [facility] Comment on above: Performed By: #### L DERICK, LAB17 ####Patrol Conductor: UNA ARCE ([phone])[facility]ITAL[facility] [place] (SBHLAB)[address] Creatinine [Mass/Vol] 1.67 mg/dL High 0.72-1.25 [facility] Comment on above: Performed By: #### L AB103, LAB17 ####Patrol Conductor: UNA ARCE ([phone])[facility]ITALAngel [place] (SBHLAB)[address] [place] [address] [place] GLOMERULAR FILTRATION RATE ML/MIN/1.73 SQ M.PREDICTED 38.9 mL/min/1.73m*2 Low >60.0 [facility] Comment on above: Result Comment: Calc ulation based on the Chronic Kidney Disease Epidemiology Collaboration (CKD-EPI) equation refit without adjustment for race Performed By: #### L AB103, LAB17 ####Patrol Conductor: UNA ARCE ([phone])[facility]ITAL[facility] [place] (SBHLAB)[address] Glucose [Mass/Vol] 94 mg/dL Normal 82-115 [facility] Comment on above: Performed By: #### L AB103, LAB17 ####Patrol Conductor: UNA MOHRCER ([phone])[facility] [place] ([facility])[address] Potassium [Moles/Vol] 3.6 mmol/L Normal 3.5-5.1 [facility] Comment on above: Result Comment: [facility] potassium values may be up to 0.5 mmol/L lower than serum values. Performed By: #### L AB103, LAB17 ####Patrol Conductor: UNA ARCE ([phone])[facility] (SB[facility]AB)[address] Protein [Mass/Vol] 5.8 g/dL Low 6.4-8.3 [facility] Comment on above: Performed By: #### L AB103, LAB17 ####Patrol Conductor: UNA ARCE ([id number])[facility] ([facility])[address] Sodium [Moles/Vol] 138 mmol/L Normal 136-145 [facility] Comment on above: Performed By: #### L AB103, LAB17 ####Patrol Conductor: UNA ARCE ([id number])[facility] ([facility])[address] Urea nitrogen [Mass/Vol] 46 mg/dL High 9-23 [facility] Comment on above: Performed By: #### L AB103, LAB17 ####Patrol Conductor: UNA ARCE ([id number])[facility]ITAL[facility] (SB[facility])[address] Comprehensive metabolic 1998 panelon 04-17-2025 Albumin [Mass/Vol] 2.1 g/dL Low 3.4 - 4.8 g/dL [facility] ALP [Catalytic activity/Vol] 49 U/L 40 - 150 U/L [facility] ALT [Catalytic activity/Vol] U/L NINF - 40 U/L [facility] Anion gap [Moles/Vol] 10 mmol/L 3 - 13 mmol/L [facility] AST [Catalytic activity/Vol] 22 U/L NINF - 34 U/L [facility] Bilirubin [Mass/Vol] 0.5 mg/dL NINF - 1.2 mg/dL [facility] Calcium [Mass/Vol] 8.4 mg/dL Low 8.8 - 10. 0 mg/dL [facility] Chloride [Moles/Vol] 88 mmol/L Low 98 - 10 7 mmol/L [facility] CO2 [Moles/Vol] 40 mmol/L High 23 - 31 mmol/L [facility] Creatinine [Mass/Vol] 1.67 mg/dL High 0.72 - 1.25 mg/dL [facility] GFR/1.73 sq M.predicted (S/P/Bld) [Vol rate/Area] 38.9 mL/min Low - PINF [facility] Glucose [Mass/Vol] 94 mg/dL 82 - 115 mg/dL [facility] Interpretation and review of laboratory results Abnormal [facility] Potassium [Moles/Vol] 3.6 mmol/L 3.5 - 5.1 mmol/L [facility] Protein [Mass/Vol] 5.8 g/dL Low 6.4 - 8.3 g/dL [facility] Sodium [Moles/Vol] 138 mmol/L 136 - 145 mmol/L [facility] Urea nitrogen [Mass/Vol] 46 mg/dL High 9 - 23 mg/d L [facility] Laboratory - Chemistry and C hemistry - challengeon 04-17-2025 Magnesium [Mass/Vol] 1.8 mg/dL 1.6 - 2 .6 mg/dL [facility] - Hematology and Cell countson 04-17-2025 Anisocytosis Ql (Bld) Slight Abnormal (none) [facility] Basophils (Bld) [#/Vol] 0.4 10*3/uL High 0.0 - 0.2 10*3/uL [facility] Basophils/100 WBC (Bld) 3 % High 0 - 2 % [facility] Eosinophils (Bld) [#/Vol] 0.2 10*3/uL 0.0 - 0.5 10*3/uL [facility] Eosinophils/100 WBC (Bld) 2 % 0 - 6 % [facility] Hypochromia Ql (Bld) Moderate Abnormal (none) [facility] Lymphocytes (Bld) [#/Vol] 1.3 10*3/uL 1.0 - 4.3 10*3/uL [facility] Lymphocytes/100 WBC (Bld) 11 % Low 15 - 45 % [facility] Monocytes (Bld) [#/Vol] 0.8 10*3/uL 0.0 - 0.9 10*3/uL [facility] Monocytes/100 WBC (Bld) 7 % 5 - 13 % [facility] Neutrophils (Bld) [#/Vol] 9.2 10*3/uL High 1.8 - 7.5 10*3/uL [facility] Poikilocytosis LM Ql (Bld) Moderate Abnormal (none) [facility] Polychromasia LM Ql (Bld) Slight Abnormal (none) [facility] RBC morphology finding Nom (Bld) abnormal [facility] Segmented neutrophils/100 WBC (Bld) 77 % 38 - 82 % [facility] Stomatocytes LM Ql (Bld) Moderate Abnormal (none) [facility] Target cells LM Ql (Bld) Slight Abnormal (none) [facility] MAGNESIUMon 04-17-2025 Magnesium [Mass/Vol] 1.8 mg/dL Normal 1.6-2.6 [facility] Comment on above: Result Comment: YARELI [place] COMMENTS:Higher values can be expected in females during menses. Performed By: #### L AB103, LAB17 ####Patrol Conductor: UNA ARCE ([phone])[facility] ([facility])[address] [place] [address] MANUAL DIFFERENTIAL (CELLAVI BANDAR)on 04-17-2025 ANISOCYTOSIS PRESENCE IN BLOOD BY LIGHT MICROSCOPY Slight Abnormal (none) [facility] Comment on above: Performed By: #### L [id number], [id number] ####Patrol Conductor: UNA ARCE ([id number])[facility] (SB[facility])[address] BAND NEUTROPHILS TOTAL PER COUNTED LEUKOCYTES BY MANUAL COUNT Normal [facility] Comment on above: Performed By: #### L UK1881, [id number] ####Patrol Conductor: UNA ARCE ([phone])[facility] ([facility])[address] [place] [address] [place] BASOPHILS (10*3/UL) IN BLOOD-CELLAVISION 0.4 10*3/uL High 0.0-0.2 [facility] Comment on above: Performed By: #### L SH1297, [id number] ####Patrol Conductor: UNA ARCE ([id number])[facility] ([facility])[address] [place] [address] [place] BASOPHILS TOTAL PER COUNTED LEUKOCYTES BY MANUAL COUNT 3 Normal [facility] Comment on above: Performed By: #### L RN3097, [id number] ####Patrol Conductor: UNA MOHRCER ([phone])[facility] [place] (SB[facility])[address] [place] [address] [place] BASOPHILS/100 LEUKOCYTES IN BLOOD-CELLAVISION 3 % High 0-2 [facility] Comment on above: Performed By: #### L NI4759, [id number] ####Patrol Conductor: UNA ARCE ([id number])[facility] [place] ([facility])[address] [place] [address] [place] BLASTS TOTAL PER COUNTED LEUKOCYTES BY MANUAL COUNT Normal [facility] Comment on above: Performed By: #### L PX6748, [id number] ####Patrol Conductor: UNA ARCE ([id number])[facility] [place] ([facility])[address] [place] [address] [place] EOSINOPHILS (10*3/UL) IN BLOOD-CELLAVISION 0.2 10*3/uL Normal 0.0-0.5 [facility] Comment on above: Performed By: #### L [id number], [id number] ####Patrol Conductor: UNA ARCE ([phone])[facility] [place] ([facility])[address] [place] [address] [place] EOSINOPHILS TOTAL PER COUNTED LEUKOCYTES BY MANUAL COUNT 2 High 0-1 [facility] Comment on above: Performed By: #### L [id number], [id number] ####Patrol Conductor: UNA ARCE ([id number])[facility] ([facility])[address] [place] [address] [place] EOSINOPHILS/100 LEUKOCYTES IN BLOOD-CELLAVISION 2 % Normal 0-6 [facility] Comment on above: Performed By: #### L NZ2104, [id number] ####Patrol Conductor: UNA ARCE ([id number])[facility] [place] ([facility])[address] HYPOCHROMIA (PRESENCE) IN BLOOD BY LIGHT MICROSCOPY Moderate Abnormal (none) [facility] Comment on above: Performed By: #### L GZ4722, [id number] ####Patrol Conductor: UNA ARCE ([id number])[facility] [place] ([facility])[address] LYMPHOCYTES (10*3/UL) IN BLOOD-CELLAVISION 1.3 10*3/uL Normal 1.0-4.3 [facility] Comment on above: Performed By: #### L [id number], [id number] ####Patrol Conductor: UNA ARCE ([id number])[facility] [place] ([facility])[address] [place] [address] [place] LYMPHOCYTES TOTAL PER COUNTED LEUKOCYTES BY MANUAL COUNT 11 Normal [facility] Comment on above: Performed By: #### L AI4583, [id number] ####Patrol Conductor: UNA ARCE ([id number])[facility] [place] ([facility])[address] [place] [address] [place] LYMPHOCYTES/100 LEUKOCYTES IN BLOOD-CELLAVISION 11 % Low 15-45 [facility] Comment on above: Performed By: #### L KL2218, [id number] ####Patrol Conductor: UNA ARCE ([id number])[facility] [place] ([facility])[address] [place] [address] [place] METAMYELOCYTES TOTAL PER COUNTED LEUKOCYTES BY MANUAL COUNT Normal [facility] Comment on above: Performed By: #### L ZW3703, [id number] ####Patrol Conductor: UNA ARCE ([id number])[facility] [place] ([facility])[address] [place] [address] [place] MONOCYTES (10*3/UL) IN BLOOD-CELLAVISION 0.8 10*3/uL Normal 0.0-0.9 [facility] Comment on above: Performed By: #### L [id number], [id number] ####Patrol Conductor: UNA MOHRCER ([id number])[facility] [place] ([facility])[address] MONOCYTES TOTAL PER COUNTED LEUKOCYTES BY MANUAL COUNT 7 Normal [facility] Comment on above: Performed By: #### L [id number], [id number] ####Patrol Conductor: UNA MOHRCER ([id number])[facility] ([facility])[address] [place] [address] [place] MONOCYTES/100 LEUKOCYTES IN BLOOD-LUCIANA 7 % Normal 5-13 [facility] Comment on above: Performed By: #### L ZM8264, [id number] ####Patrol Conductor: UNA ARCE ([id number])[facility] [place] ([facility])[address] MYELOCYTES COUNTED BY MANUAL COUNT [facility] Comment on above: Performed By: #### L [id number], [id number] ####Patrol Conductor: UNA ARCE ([id number])[facility] [place] ([facility])[address] [place] [address] [place] NEUTROPHILS TOTAL PER COUNTED LEUKOCYTES BY MANUAL COUNT 77 Normal [facility] Comment on above: Performed By: #### L EJ3350, [id number] ####Patrol Conductor: UNA MOHRCER ([id number])[facility] [place] ([facility])[address] [place] [address] [place] POIKILOCYTOSIS (PRESENCE) IN BLOOD BY LIGHT MICROSCOPY Moderate Abnormal (none) [facility] Comment on above: Performed By: #### L [id number], [id number] ####Patrol Conductor: UNA ARCE ([id number])[facility] [place] ([facility])[address] [place] [address] [place] POLYCHROMASIA IN BLOOD BY LIGHT MICROSCOPY Slight Abnormal (none) [facility] Comment on above: Performed By: #### L [id number], [id number] ####Patrol Conductor: UNA ARCE ([id number])[facility] [place] ([facility])[address] [place] [address] [place] PROMYELOCYTES TOTAL PER COUNTED LEUKOCYTES BY MANUAL COUNT Normal [facility] Comment on above: Performed By: #### L DJ8749, [id number] ####Patrol Conductor: UNA ARCE ([id number])[facility] [place] ([facility])[address] RBC MORPHOLOGY IN BLOOD abnormal Normal [facility] Comment on above: Performed By: #### L RZ5065, [id number] ####Patrol Conductor: UNA ARCE ([id number])[facility] [place] ([facility])[address] [place] [address] [place] SEGMENTED NEUTROPHILS (10*3/UL) IN BLOOD-CELLAVISION 9.2 10*3/uL High 1.8-7.5 [facility] Comment on above: Performed By: #### L [id number], [id number] ####Patrol Conductor: UNA ARCE ([id number])[facility] [place] ([facility])[address] [place] [address] [place] SEGMENTED NEUTROPHILS/100 LEUKOCYTES-CE 77 % Normal 38-82 [facility] Comment on above: Performed By: #### L [id number], [id number] ####Patrol Conductor: UNA ARCE ([id number])[facility] [place] ([facility])[address] [place] [address] [place] STOMATOCYTES IN BLOOD BY LIGHT MICROSCOPY Moderate Abnormal (none) [facility] Comment on above: Performed By: #### L LO3666, [id number] ####Patrol Conductor: UNA ARCE ([id number])[facility] [place] ([facility])[address] TARGET CELLS IN BLOOD BY LIGHT MICROSCOPY Slight Abnormal (none) [facility] Comment on above: Performed By: #### L QI9866, [id number] ####Patrol Conductor: UNA ARCE ([id number])[facility]ITAL[facility] [place] (SB[facility])[address] UNCLASSIFIED CELLS TOTAL PER COUNTED LEUKOCYTES BY MANUAL COUNT Normal [facility] Comment on above: Performed By: #### L [id number], [id number] ####Patrol Conductor: UNA BERMUDEZPEDRO ([id number])[facility] ([facility])[address] VARIANT LYMPHOCYTES TOTAL PER COUNTED LEUKOCYTES BY MANUAL COUNT Normal [facility] Comment on above: Performed By: #### L [id number], [id number] ####Patrol Conductor: UNA ARCE ([id number])[facility] (SB[facility])[address] Magnesium [Mass/Vol]on 04-17 Interpretation and review of laboratory results Normal [facility] No Panel Informationon 04-17 [facility] Basophils Manual 3 [facility] Eosinophils Manual 2 High 0 - 1 [facility] Interpretation and review of laboratory results Abnormal [facility] Lymphocytes Manual 11 [facility] Monocytes Manual 7 [facility] Neutrophils Manual 77 [facility] Nursing Noteon 04-17-2025 Nursing Note Report given to Flor MYERS at [facility]. All belongings sent with patient, including eyewear. HL removed, site WNL. Normal [facility] Progress Noteon 04-17-2025 Progress Note Normal [facility] Progress Note Normal [facility] [id number] 04-16-2025 [id number] Tasked weekend TTC t o follow for possible dc over the weekend. manager performance to follow and assist as needed. Normal [facility] [id number] Complete in HEN S for [facility] per TCC request Normal [facility] [id number] Normal [facility] CBC W Auto Differential pane l (Bld)Ordered By: Dayan Hernandez on 04-16-2025 Erythrocyte distribution width (RBC) [Ratio] 25.7 % High 11.5 - 15.0 % [facility] Hematocrit (Bld) [Volume fraction] 28.4 % Low 40.0 - 52.0 % [facility] Hemoglobin (Bld) [Mass/Vol] 8 g/dL Low 13.0 - 18.0 g/dL [facility] Interpretation and review of laboratory results Abnormal [facility] MCH (RBC) [Entitic mass] 23.7 pg Low 26. 0 - 34.0 pg [facility] MCHC (RBC) [Mass/Vol] 28.2 % Low 30.5 - 36.0 % [facility] MCV (RBC) [Entitic vol] 84.3 fL 77.0 - 99.0 fL [facility] Platelet mean volume (Bld) [Entitic vol] 9.1 fL 9.0 - 12.7 fL [facility] Platelets (Bld) [#/Vol] 405 10*3/uL 140 - 440 10*3/uL [facility] RBC (Bld) [#/Vol] 3.37 10*6/uL Low 4.40 - 5.9 0 10*6/uL [facility] WBC (Bld) [#/Vol] 13.1 10*3/uL High 3.6 - 10.7 10*3/uL [facility] CBC WITH AUTO DIFFERENTIALon 04-16-2025 Erythrocyte distribution width (RBC) [Ratio] 25.7 % High 11.5-15.0 [facility] Comment on above: Performed By: #### L [id number], [id number] ####Patrol Conductor: UNA ARCE ([id number])[facility] ([facility])[address] [place] [address] Hematocrit (Bld) [Volume fraction] 28.4 % Low 40.0-52.0 [facility] Comment on above: Performed By: #### L [id number], [id number] ####Patrol Conductor: UNA STAUFFERMELANIE ([id number])[facility]ITALAngel SANCHEZCIBOLA GENERAL HOSPITALMarisol (SBHLAB)[address] Hemoglobin (Bld) [Mass/Vol] 8.0 g/dL Low 13.0-18.0 [facility] Comment on above: Performed By: #### L [id number], [id number] ####Patrol Conductor: UNA STAUFFERMELANIE ([id number])[facility]ITALAngel [facility] ([facility])[address] MCH (RBC) [Entitic mass] 23.7 pg Low 26.0-34.0 [facility] Comment on above: Performed By: #### L [id number], [id number] ####Patrol Conductor: UNA YAZMIN ([id number])[facility]ITALAngel [facility] ([facility])[address] MCHC 28.2 % Low 30.5-36.0 [facility] Comment on above: Performed By: #### L VJ1674, [id number] ####Patrol Conductor: UNA YAZMIN ([id number])[facility]ITALAngel [place] (SB[facility])[address] MCV (RBC) [Entitic vol] 84.3 fL Normal 77.0-99.0 [facility] Comment on above: Performed By: #### L KP0918, [id number] ####Patrol Conductor: UNA STAUFFERMELANIE ([id number])[facility]ITALAngel [place] ([facility])[address] Platelet mean volume (Bld) [Entitic vol] 9.1 fL Normal 9.0-12.7 [facility] Comment on above: Performed By: #### L QH1812, [id number] ####Patrol Conductor: UNA YAZMIN ([id number])[facility]ITALAngel [place] ([facility])[address] Platelets (Bld) [#/Vol] 405 10*3/uL Normal 140-440 [facility] Comment on above: Performed By: #### L [id number], [id number] ####Patrol Conductor: UNA ARCE ([id number])MONISHAA [place] (SBHLAB)[address] RBC (Bld) [#/Vol] 3.37 10*6/uL Low 4.40-5.90 [facility] Comment on above: Performed By: #### L [id number], [id number] ####Patrol Conductor: UNA ARCE ([id number])[facility] [place] (SBHLAB)[address] WBC (Bld) [#/Vol] 13.1 10*3/uL High 3.6-10.7 [facility] Comment on above: Performed By: #### L [id number], [id number] ####Patrol Conductor: UNA ARCE ([id number])[facility] [place] (SBHLAB)[address] COMPREHENSIVE METABOLIC PANE Anant 04-16-2025 Albumin [Mass/Vol] 2.2 g/dL Low 3.4-4.8 [facility] Comment on above: Performed By: #### L [id number], [id number] ####Patrol Conductor: UNA ARCE ([id number])[facility] SANCHEZERT[place] (SBHLAB)[address] ALP [Catalytic activity/Vol] 55 U/L Normal 40-150 [facility] Comment on above: Performed By: #### L [id number], LAB17 ####Patrol Conductor: UNA ARCE ([id number])[facility] [place] (SBHLAB)[address] ALT [Catalytic activity/Vol] 6 U/L Normal <40 [facility] Comment on above: Performed By: #### L [id number], LAB17 ####Patrol Conductor: UNA ARCE ([id number])[facility] [place] (SBHLAB)[address] Anion gap [Moles/Vol] 10 mmol/L Normal 3-13 [facility] Comment on above: Performed By: #### L DERICK, LAB17 ####Patrol Conductor: UNA ARCE ([phone])[facility] [place] (SBHLAB)[address] AST [Catalytic activity/Vol] 23 U/L Normal <34 [facility] Comment on above: Performed By: #### L DERICK, LAB17 ####Patrol Conductor: UNA ARCE ([phone])[facility] [place] ([facility])[address] Bilirubin [Mass/Vol] 0.5 mg/dL Normal <1.2 [facility] Comment on above: Performed By: #### Gilbert SEPULVEDA, LAB17 ####Patrol Conductor: UNA ARCE ([phone])[facility] [place] (SB[facility])[address] Calcium [Mass/Vol] 8.2 mg/dL Low 8.8-10.0 [facility] Comment on above: Performed By: #### L DERICK, LAB17 ####Patrol Conductor: UNA ARCE ([phone])[facility] [place] (SBHLAB)[address] Chloride [Moles/Vol] 87 mmol/L Low 98-107 [facility] Comment on above: Performed By: #### L DERICK, LAB17 ####Patrol Conductor: UNA ARCE ([phone])[facility] [place] (SBHLAB)155 [place] [address] [place] CO2 [Moles/Vol] 43 mmol/L High 23-31 [facility] Comment on above: Performed By: #### L AB103, LAB17 ####Patrol Conductor: UNA ARCE ([id number])[facility] [place] (SB[facility])155 [place] [address] [place] Creatinine [Mass/Vol] 1.81 mg/dL High 0.72-1.25 [facility] Comment on above: Performed By: #### L AB103, LAB17 ####Patrol Conductor: UNA ARCE ([phone])[facility] (SBHLAB)[address] GLOMERULAR FILTRATION RATE ML/MIN/1.73 SQ M.PREDICTED 35.3 mL/min/1.73m*2 Low >60.0 [facility] Comment on above: Result Comment: Calc ulation based on the Chronic Kidney Disease Epidemiology Collaboration (CKD-EPI) equation refit without adjustment for race Performed By: #### L AB103, LAB17 ####Patrol Conductor: UNA ARCE ([id number])[facility] ([facility])[address] [place] [address] Glucose [Mass/Vol] 114 mg/dL Normal 82-115 [facility] Comment on above: Performed By: #### L AB103, LAB17 ####Patrol Conductor: UNA ARCE ([phone])[facility] [place] [address] Potassium [Moles/Vol] 3.6 mmol/L Normal 3.5-5.1 [facility] Comment on above: Result Comment: [facility] potassium values may be up to 0.5 mmol/L lower than serum values. Performed By: #### L AB103, LAB17 ####Patrol Conductor: UNA ARCE ([phone])[facility] (SB[facility])[address] Protein [Mass/Vol] 6.0 g/dL Low 6.4-8.3 [facility] Comment on above: Performed By: #### L AB103, LAB17 ####Patrol Conductor: UNA ARCE ([id number])[facility] (HLAB)[address] [place] [address] Sodium [Moles/Vol] 140 mmol/L Normal 136-145 [facility] Comment on above: Performed By: #### L AB103, LAB17 ####Patrol Conductor: UNA ARCE ([phone])[facility] ([facility])[address] Urea nitrogen [Mass/Vol] 46 mg/dL High - [facility] Comment on above: Performed By: #### L DERICK, LAB17 ####Patrol Conductor: UNA ARCE ([phone])[facility] ([facility])[address] Comprehensive metabolic 1998 panelon 04-16-2025 Albumin [Mass/Vol] 2.2 g/dL Low 3.4 - 4.8 g/dL [facility] ALP [Catalytic activity/Vol] 55 U/L 40 - 150 U/L [facility] ALT [Catalytic activity/Vol] 6 U/L NINF - 40 U/L [facility] Anion gap [Moles/Vol] 10 mmol/L 3 - 13 mmol/L [facility] AST [Catalytic activity/Vol] 23 U/L NINF - 34 U/L [facility] Bilirubin [Mass/Vol] 0.5 mg/dL NINF - 1.2 mg/dL [facility] Calcium [Mass/Vol] 8.2 mg/dL Low 8.8 - 10. 0 mg/dL [facility] Chloride [Moles/Vol] 87 mmol/L Low 98 - 10 7 mmol/L [facility] CO2 [Moles/Vol] 43 mmol/L High 23 - 31 mmol/L [facility] Creatinine [Mass/Vol] 1.81 mg/dL High 0.72 - 1.25 mg/dL [facility] GFR/1.73 sq M.predicted (S/P/Bld) [Vol rate/Area] 35.3 mL/min Low - PINF [facility] Glucose [Mass/Vol] 114 mg/dL 82 - 115 mg/dL [facility] Interpretation and review of laboratory results Abnormal [facility] Potassium [Moles/Vol] 3.6 mmol/L 3.5 - 5.1 mmol/L [facility] Protein [Mass/Vol] 6 g/dL Low 6.4 - 8.3 g/dL [facility] Sodium [Moles/Vol] 140 mmol/L 136 - 145 mmol/L [facility] Urea nitrogen [Mass/Vol] 46 mg/dL High 9 - 23 mg/d L [facility] - Chemistry and C hemistry - challengeon 04-16-2025 Magnesium [Mass/Vol] 1.8 mg/dL 1.6 - 2 .6 mg/dL [facility] - Hematology and Cell countson 04-16-2025 Anisocytosis Ql (Bld) Moderate Abnormal (none) [facility] Basophils (Bld) [#/Vol] 0.1 10*3/uL 0.0 - 0.2 10*3/uL [facility] Basophils/100 WBC (Bld) 1 % 0 - 2 % [facility] Elen cells LM Ql (Bld) Slight Abnormal (none) [facility] Eosinophils (Bld) [#/Vol] 0.5 10*3/uL 0.0 - 0.5 10*3/uL [facility] Eosinophils/100 WBC (Bld) 4 % 0 - 6 % [facility] Hypochromia Ql (Bld) Slight Abnormal (none) [facility] Lymphocytes (Bld) [#/Vol] 1.6 10*3/uL 1.0 - 4.3 10*3/uL [facility] Lymphocytes/100 WBC (Bld) 12 % Low 15 - 45 % [facility] Monocytes (Bld) [#/Vol] 0.9 10*3/uL 0.0 - 0.9 10*3/uL [facility] Monocytes/100 WBC (Bld) 7 % 5 - 13 % [facility] Neutrophils (Bld) [#/Vol] 9.8 10*3/uL High 1.8 - 7.5 10*3/uL [facility] Poikilocytosis LM Ql (Bld) Slight Abnormal (none) [facility] RBC morphology finding Nom (Bld) abnormal [facility] Segmented neutrophils/100 WBC (Bld) 75 % 38 - 82 % [facility] Variant lymphocytes (Bld) [#/Vol] 0.3 10*3/uL High NINF - 0.0 10*3/uL [facility] Variant lymphocytes/100 WBC (Bld) 2 % High NINF - 0 % [facility] MAGNESIUMon 04-16-2025 Magnesium [Mass/Vol] 1.8 mg/dL Normal 1.6-2.6 [facility] Comment on above: Result Comment: ORDE R COMMENTS:Higher values can be expected in females during menses. Performed By: #### L AB103, LAB17 ####Patrol Conductor: UNA ARCE ([phone])[facility] [place] ([facility])[address] MANUAL DIFFERENTIAL (CELLAVI BANDAR)on 04-16-2025 ANISOCYTOSIS PRESENCE IN BLOOD BY LIGHT MICROSCOPY Moderate Abnormal (none) [facility] Comment on above: Performed By: #### L [id number], [id number] ####Patrol Conductor: UNA ARCE ([id number])[facility] [place] ([facility])[address] BAND NEUTROPHILS TOTAL PER COUNTED LEUKOCYTES BY MANUAL COUNT Normal [facility] Comment on above: Performed By: #### L [id number], [id number] ####Patrol Conductor: UNA ARCE ([id number])[facility] [place] ([facility])[address] BASOPHILS (10*3/UL) IN BLOOD-CELLAVISION 0.1 10*3/uL Normal 0.0-0.2 [facility] Comment on above: Performed By: #### L [id number], [id number] ####Patrol Conductor: UNA ARCE ([id number])[facility] [place] ([facility])[address] BASOPHILS TOTAL PER COUNTED LEUKOCYTES BY MANUAL COUNT 1 Normal [facility] Comment on above: Performed By: #### L [id number], [id number] ####Patrol Conductor: UNA ARCE ([id number])[facility] [place] ([facility])[address] [place] [address] [place] BASOPHILS/100 LEUKOCYTES IN BLOOD-CELLAVISION 1 % Normal 0-2 [facility] Comment on above: Performed By: #### L [id number], [id number] ####Patrol Conductor: UNA ARCE ([id number])[facility] [place] ([facility])[address] [place] [address] [place] BLASTS TOTAL PER COUNTED LEUKOCYTES BY MANUAL COUNT Normal [facility] Comment on above: Performed By: #### L [id number], [id number] ####Patrol Conductor: UNA STAUFFERMELANIE ([id number])[facility] [place] ([facility])[address] [place] [address] [place] ELEN CELLS PRESENCE IN BLOOD BY LIGHT MICROSCOPY Slight Abnormal (none) [facility] Comment on above: Performed By: #### L [id number], [id number] ####Patrol Conductor: UNA BERMUDEZPEDRO ([phone])[facility] [place] ([facility])[address] [place] [address] [place] EOSINOPHILS (10*3/UL) IN BLOOD-CELLAVISION 0.5 10*3/uL Normal 0.0-0.5 [facility] Comment on above: Performed By: #### L [id number], [id number] ####Patrol Conductor: UNA STAUFFERMELANIE ([id number])[facility] [place] ([facility])[address] [place] [address] [place] EOSINOPHILS TOTAL PER COUNTED LEUKOCYTES BY MANUAL COUNT 4 High 0-1 [facility] Comment on above: Performed By: #### L [id number], [id number] ####Patrol Conductor: UNA BERMUDEZPEDRO ([phone])[facility] [place] ([facility])[address] [place] [address] [place] EOSINOPHILS/100 LEUKOCYTES IN BLOOD-CELLAVISION 4 % Normal 0-6 [facility] Comment on above: Performed By: #### L [id number], [id number] ####Patrol Conductor: UNA BERMUDEZPEDRO ([id number])[facility] [place] ([facility])[address] [place] [address] [place] HYPOCHROMIA (PRESENCE) IN BLOOD BY LIGHT MICROSCOPY Slight Abnormal (none) [facility] Comment on above: Performed By: #### L [id number], [id number] ####Patrol Conductor: UNA ARCE ([phone])[facility] [place] ([facility])[address] [place] [address] [place] LYMPHOCYTE VARIANT/100 LEUKOCYTES IN BLOOD- CELLAVISION 2 % High <=0 [facility] Comment on above: Performed By: #### L [id number], [id number] ####Patrol Conductor: UNA ARCE ([id number])[facility] ([facility])[address] [place] [address] [place] LYMPHOCYTES (10*3/UL) IN BLOOD-CELLAVISION 1.6 10*3/uL Normal 1.0-4.3 [facility] Comment on above: Performed By: #### L [id number], [id number] ####Patrol Conductor: UNA ARCE ([id number])[facility] [place] (SB[facility])[address] LYMPHOCYTES TOTAL PER COUNTED LEUKOCYTES BY MANUAL COUNT 12 Normal [facility] Comment on above: Performed By: #### L [id number], [id number] ####Patrol Conductor: UNA ARCE ([id number])[facility] (SB[facility])[address] [place] [address] [place] LYMPHOCYTES/100 LEUKOCYTES IN BLOOD-CELLAVISION 12 % Low 15-45 [facility] Comment on above: Performed By: #### L [id number], [id number] ####Patrol Conductor: UNA ARCE ([id number])[facility] (SB[facility])[address] [place] [address] [place] METAMYELOCYTES TOTAL PER COUNTED LEUKOCYTES BY MANUAL COUNT Normal [facility] Comment on above: Performed By: #### L [id number], [id number] ####Patrol Conductor: UNA ARCE ([id number])[facility] [place] ([facility])[address] [place] [address] [place] MONOCYTES (10*3/UL) IN BLOOD-CELLAVISION 0.9 10*3/uL Normal 0.0-0.9 [facility] Comment on above: Performed By: #### L [id number], [id number] ####Patrol Conductor: UNA ARCE ([id number])[facility] [place] (SB[facility])[address] [place] [address] [place] MONOCYTES TOTAL PER COUNTED LEUKOCYTES BY MANUAL COUNT 7 Normal [facility] Comment on above: Performed By: #### L [id number], [id number] ####Patrol Conductor: UNA MORHCER ([id number])[facility] [place] (SBHLAB)[address] [place] [address] [place] MONOCYTES/100 LEUKOCYTES IN BLOOD-LUCIANA 7 % Normal - [facility] Comment on above: Performed By: #### L [id number], [id number] ####Patrol Conductor: UNA MOHRCER ([id number])[facility] [place] (SB[facility])[address] MYELOCYTES COUNTED BY MANUAL COUNT Normal [facility] Comment on above: Performed By: #### L [id number], [id number] ####Patrol Conductor: UNA MOHRCER ([id number])[facility] [place] (SB[facility]AB)[address] [place] [address] [place] NEUTROPHILS TOTAL PER COUNTED LEUKOCYTES BY MANUAL COUNT 77 Normal [facility] Comment on above: Performed By: #### L [id number], [id number] ####Patrol Conductor: UNA ARCE ([id number])[facility] [place] (SB[facility])155 [place] [address] [place] POIKILOCYTOSIS (PRESENCE) IN BLOOD BY LIGHT MICROSCOPY Slight Abnormal (none) [facility] Comment on above: Performed By: #### L [id number], [id number] ####Patrol Conductor: UNA MOHRCER ([id number])[facility] [place] (SB[facility])155 [place] [address] [place] PROMYELOCYTES TOTAL PER COUNTED LEUKOCYTES BY MANUAL COUNT Normal [facility] Comment on above: Performed By: #### L [id number], [id number] ####Patrol Conductor: UNA ARCE ([id number])[facility] [place] (SB[facility])[address] [place] [address] [place] RBC MORPHOLOGY IN BLOOD abnormal Normal [facility] Comment on above: Performed By: #### L [id number], [id number] ####Patrol Conductor: UNA ARCE ([id number])[facility] [place] ([facility])[address] SEGMENTED NEUTROPHILS (10*3/UL) IN BLOOD-CELLAVISION 9.8 10*3/uL High 1.8-7.5 [facility] Comment on above: Performed By: #### L [id number], [id number] ####Patrol Conductor: UNA ARCE ([id number])[facility] [place] ([facility])[address] [place] [address] [place] SEGMENTED NEUTROPHILS/100 LEUKOCYTES-CE 75 % Normal 38-82 [facility] Comment on above: Performed By: #### L [id number], [id number] ####Patrol Conductor: UNA ARCE ([id number])[facility] [place] ([facility])[address] UNCLASSIFIED CELLS TOTAL PER COUNTED LEUKOCYTES BY MANUAL COUNT [facility] Comment on above: Performed By: #### L [id number], [id number] ####Patrol Conductor: UNA ARCE ([id number])[facility] [place] ([facility])[address] VARIANT LYMPHOCYTES (10*3/UL) IN BLOOD-CELLAVISION 0.3 10*3/uL High <=0.0 [facility] Comment on above: Performed By: #### L [id number], [id number] ####Patrol Conductor: UNA ARCE ([id number])[facility] [place] ([facility])[address] [place] [address] [place] VARIANT LYMPHOCYTES TOTAL PER COUNTED LEUKOCYTES BY MANUAL COUNT 2 Normal [facility] Comment on above: Performed By: #### L [id number], [id number] ####Patrol Conductor: UNA ARCE ([id number])[facility] [place] ([facility])[address] Magnesium [Mass/Vol]on 04-16 Interpretation and review of laboratory results Normal [facility] No Panel Informationon 04-16 [facility] Atypical Lymphocytes Manual 2 [facility] Basophils Manual 1 [facility] Eosinophils Manual 4 High 0 - 1 [facility] Interpretation and review of laboratory results Abnormal [facility] Lymphocytes Manual 12 [facility] Monocytes Manual 7 [facility] Neutrophils Manual 77 [facility] Nursing Noteon 04-16-2025 Nursing Note Normal [facility] Progress Noteon 04-16-2025 Progress Note Normal [facility] Progress Note Normal [facility] Progress Note Normal [facility] Progress Note Normal [facility] Progress Note Normal [facility] Progress Note Normal [facility] [id number] 04-15-2025 [id number] Normal [facility] Bacteria identified Anaer cx Nom (Unsp spec)on 04-15-2025 Interpretation and review of laboratory results Normal [facility] CBC W Auto Differential pane l (Bld)on 04-15-2025 Erythrocyte distribution width (RBC) [Ratio] 25.3 % High 11.5 - 15.0 % [facility] Hematocrit (Bld) [Volume fraction] 28 % Low 40.0 - 52.0 % [facility] Hemoglobin (Bld) [Mass/Vol] 7.8 g/dL Low 13.0 - 18.0 g/dL [facility] Interpretation and review of laboratory results Abnormal [facility] MCH (RBC) [Entitic mass] 23.4 pg Low 26. 0 - 34.0 pg [facility] MCHC (RBC) [Mass/Vol] 27.9 % Low 30.5 - 36.0 % [facility] MCV (RBC) [Entitic vol] 84.1 fL 77.0 - 99.0 fL [facility] Platelet mean volume (Bld) [Entitic vol] 9.1 fL 9.0 - 12.7 fL [facility] Platelets (Bld) [#/Vol] 332 10*3/uL 140 - 440 10*3/uL [facility] RBC (Bld) [#/Vol] 3.33 10*6/uL Low 4.40 - 5.9 0 10*6/uL [facility] WBC (Bld) [#/Vol] 12.4 10*3/uL High 3.6 - 10.7 10*3/uL [facility] CBC WITH AUTO DIFFERENTIALon 04-15-2025 Erythrocyte distribution width (RBC) [Ratio] 25.3 % High 11.5-15.0 [facility] Comment on above: Performed By: #### L [id number], [id number] ####Patrol Conductor: UNA ARCE ([id number])[facility] (SB[facility])[address] Hematocrit (Bld) [Volume fraction] 28.0 % Low 40.0-52.0 [facility] Comment on above: Performed By: #### L [id number], [id number] ####Patrol Conductor: UNA ARCE ([id number])[facility] (SB[facility])[address] [place] [address] Hemoglobin (Bld) [Mass/Vol] 7.8 g/dL Low 13.0-18.0 [facility] Comment on above: Performed By: #### Gilbert [id number], [id number] ####Patrol Conductor: UNA ARCE ([phone])[facility] ([facility])[address] [place] [address] MCH (RBC) [Entitic mass] 23.4 pg Low 26.0-34.0 [facility] Comment on above: Performed By: #### L [id number], [id number] ####Patrol Conductor: UNA ARCE ([id number])[facility] ([facility])[address] MCHC 27.9 % Low 30.5-36.0 [facility] Comment on above: Performed By: #### L [id number], [id number] ####Patrol Conductor: UNA ARCE ([id number])[facility] ([facility])[address] MCV (RBC) [Entitic vol] 84.1 fL Normal 77.0-99.0 [facility] Comment on above: Performed By: #### L [id number], [id number] ####Patrol Conductor: UNA ARCE ([id number])[facility]ITALAngel SANCHEZCIBOLA [facility]OSPITALMarisol (SBHLAB)[address] Platelet mean volume (Bld) [Entitic vol] 9.1 fL Normal 9.0-12.7 [facility] Comment on above: Performed By: #### L [id number], [id number] ####Patrol Conductor: UNA ARCE ([id number])[facility] [place] (SBHLAB)[address] Platelets (Bld) [#/Vol] 332 10*3/uL Normal 140-440 [facility] Comment on above: Performed By: #### L [id number], [id number] ####Patrol Conductor: UNA ARCE ([id number])[facility] ([facility])[address] [place] [address] RBC (Bld) [#/Vol] 3.33 10*6/uL Low 4.40-5.90 [facility] Comment on above: Performed By: #### L [id number], [id number] ####Patrol Conductor: UNA ARCE ([id number])[facility] ([facility])[address] [place] [address] WBC (Bld) [#/Vol] 12.4 10*3/uL High 3.6-10.7 [facility] Comment on above: Performed By: #### L [id number], [id number] ####Patrol Conductor: UNA ARCE ([id number])[facility] ([facility])[address] COMPREHENSIVE METABOLIC PANE Anant 04-15-2025 Albumin [Mass/Vol] 2.1 g/dL Low 3.4-4.8 [facility] Comment on above: Performed By: #### L AB103, LAB17 ####Patrol Conductor: UNA ARCE ([id number])[facility] [place] (SB[facility])[address] ALP [Catalytic activity/Vol] 48 U/L Normal 40-150 [facility] Comment on above: Performed By: #### L AB103, LAB17 ####Patrol Conductor: UNA ARCE ([id number])[facility] [place] ([facility])[address] [place] [address] [place] ALT [Catalytic activity/Vol] U/L Normal <40 [facility] Comment on above: Performed By: #### L AB103, LAB17 ####Patrol Conductor: UNA ARCE ([id number])[facility] [place] ([facility])[address] Anion gap [Moles/Vol] 9 mmol/L Normal 3-13 [facility] Comment on above: Performed By: #### L AB103, LAB17 ####Patrol Conductor: UNA ARCE ([phone])[facility] [place] ([facility])[address] AST [Catalytic activity/Vol] 21 U/L Normal <34 [facility] Comment on above: Performed By: #### L AB103, LAB17 ####Patrol Conductor: UNA ARCE ([id number])[facility] [place] ([facility])[address] [place] [address] [place] Bilirubin [Mass/Vol] 0.6 mg/dL Normal <1.2 [facility] Comment on above: Performed By: #### L AB103, LAB17 ####Patrol Conductor: UNA ARCE ([id number])[facility] [place] ([facility])[address] [place] [address] [place] Calcium [Mass/Vol] 8.2 mg/dL Low 8.8-10.0 [facility] Comment on above: Performed By: #### L AB103, LAB17 ####Patrol Conductor: UNA ARCE ([id number])[facility] [place] ([facility])[address] Chloride [Moles/Vol] 90 mmol/L Low 98-107 [facility] Comment on above: Performed By: #### L AB103, LAB17 ####Patrol Conductor: UNA ARCE ([id number])[facility] (SB[facility]AB)[address] CO2 [Moles/Vol] 40 mmol/L High 23-31 [facility] Comment on above: Performed By: #### L AB103, LAB17 ####Patrol Conductor: UNA ARCE ([id number])[facility] (HLAB)[address] Creatinine [Mass/Vol] 1.58 mg/dL High 0.72-1.25 [facility] Comment on above: Performed By: #### L DEIRCK, LAB17 ####Patrol Conductor: UNA ARCE ([id number])[facility] (HLAB)[address] GLOMERULAR FILTRATION RATE ML/MIN/1.73 SQ M.PREDICTED 41.6 mL/min/1.73m*2 Low >60.0 [facility] Comment on above: Result Comment: Calc ulation based on the Chronic Kidney Disease Epidemiology Collaboration (CKD-EPI) equation refit without adjustment for race Performed By: #### L 103, LAB17 ####Patrol Conductor: UNA ARCE ([id number])[facility] (HLAB)[address] [place] [address] [place] Glucose [Mass/Vol] 130 mg/dL High 82-115 [facility] Comment on above: Performed By: #### L AB103, LAB17 ####Patrol Conductor: UNA ARCE ([id number])[facility] (HLAB)[address] Potassium [Moles/Vol] 3.5 mmol/L Normal 3.5-5.1 [facility] Comment on above: Result Comment: Plas ma potassium values may be up to 0.5 mmol/L lower than serum values. Performed By: #### L AB103, LAB17 ####Patrol Conductor: UNA ARCE ([id number])[facility] [place] ([facility])[address] Protein [Mass/Vol] 5.7 g/dL Low 6.4-8.3 [facility] Comment on above: Performed By: #### L AB103, LAB17 ####Patrol Conductor: UNA ARCE ([id number])[facility] [place] ([facility])[address] Sodium [Moles/Vol] 139 mmol/L Normal 136-145 [facility] Comment on above: Performed By: #### L [id number], LAB17 ####Patrol Conductor: UNA ARCE ([id number])[facility] [place] (SBHLAB)[address] Urea nitrogen [Mass/Vol] 43 mg/dL High 9-23 [facility] Comment on above: Performed By: #### L [id number], LAB17 ####Patrol Conductor: UNA ARCE ([id number])[facility] [place] (SB[facility]AB)[address] Comprehensive metabolic 1998 panelon 04-15-2025 Albumin [Mass/Vol] 2.1 g/dL Low 3.4 - 4.8 g/dL [facility] ALP [Catalytic activity/Vol] 48 U/L 40 - 150 U/L [facility] ALT [Catalytic activity/Vol] U/L NINF - 40 U/L [facility] Anion gap [Moles/Vol] 9 mmol/L 3 - 13 mmol/L [facility] AST [Catalytic activity/Vol] 21 U/L NINF - 34 U/L [facility] Bilirubin [Mass/Vol] 0.6 mg/dL NINF - 1.2 mg/dL [facility] Calcium [Mass/Vol] 8.2 mg/dL Low 8.8 - 10. 0 mg/dL [facility] Chloride [Moles/Vol] 90 mmol/L Low 98 - 10 7 mmol/L [facility] CO2 [Moles/Vol] 40 mmol/L High 23 - 31 mmol/L [facility] Creatinine [Mass/Vol] 1.58 mg/dL High 0.72 - 1.25 mg/dL [facility] GFR/1.73 sq M.predicted (S/P/Bld) [Vol rate/Area] 41.6 mL/min Low - PINF [facility] Glucose [Mass/Vol] 130 mg/dL High 82 - 115 mg/dL [facility] Interpretation and review of laboratory results Abnormal [facility] Potassium [Moles/Vol] 3.5 mmol/L 3.5 - 5.1 mmol/L [facility] Protein [Mass/Vol] 5.7 g/dL Low 6.4 - 8.3 g/dL [facility] Sodium [Moles/Vol] 139 mmol/L 136 - 145 mmol/L [facility] Urea nitrogen [Mass/Vol] 43 mg/dL High 9 - 23 mg/d L [facility] Laboratory - Chemistry and C hemistry - challengeon 04-15-2025 Magnesium [Mass/Vol] 1.8 mg/dL 1.6 - 2 .6 mg/dL [facility] Laboratory - Hematology and Cell countson 04-15-2025 Anisocytosis Ql (Bld) Moderate Abnormal (none) [facility] Basophils (Bld) [#/Vol] 0.2 10*3/uL 0.0 - 0.2 10*3/uL [facility] Basophils/100 WBC (Bld) 2 % 0 - 2 % [facility] Eosinophils (Bld) [#/Vol] 0.1 10*3/uL 0.0 - 0.5 10*3/uL [facility] Eosinophils/100 WBC (Bld) 1 % 0 - 6 % [facility] Hypochromia Ql (Bld) Moderate Abnormal (none) [facility] Lymphocytes (Bld) [#/Vol] 1.2 10*3/uL 1.0 - 4.3 10*3/uL [facility] Lymphocytes/100 WBC (Bld) 10 % Low 15 - 45 % [facility] Monocytes (Bld) [#/Vol] 1.6 10*3/uL High 0.0 - 0.9 10*3/uL [facility] Monocytes/100 WBC (Bld) 13 % 5 - 13 % [facility] Neutrophils (Bld) [#/Vol] 9.3 10*3/uL High 1.8 - 7.5 10*3/uL [facility] Poikilocytosis LM Ql (Bld) Slight Abnormal (none) [facility] RBC morphology finding Nom (Bld) abnormal [facility] Segmented neutrophils/100 WBC (Bld) 75 % 38 - 82 % [facility] Stomatocytes LM Ql (Bld) Slight Abnormal (none) [facility] Laboratory - Microbiology an d Antimicrobial susceptibilityon 04-15-2025 Bacteria identified Anaer cx Nom (Unsp spec) No growth at 5 days [facility] Lower GI hemoglobin spec 1 I A Ql (Stl)Ordered By: Haroldo Alvarez on 04-15-2025 Fecal occult blood Negative Negative [facility] Interpretation and review of laboratory results Normal [facility] MAGNESIUMon 04-15-2025 Magnesium [Mass/Vol] 1.8 mg/dL Normal 1.6-2.6 [facility] Comment on above: Result Comment: YARELI [place] COMMENTS:Higher values can be expected in females during menses. Performed By: #### L AB103, LAB17 ####Patrol Conductor: UNA ARCE ([phone])[facility])[address] [place] [address] MANUAL DIFFERENTIAL (CELLAVI BANDAR)on 04-15-2025 ANISOCYTOSIS PRESENCE IN BLOOD BY LIGHT MICROSCOPY Moderate Abnormal (none) [facility] Comment on above: Performed By: #### L [id number], [id number] ####Patrol Conductor: UNA ARCE ([id number])[facility])[address] [place] [address] BAND NEUTROPHILS TOTAL PER COUNTED LEUKOCYTES BY MANUAL COUNT Normal [facility] Comment on above: Performed By: #### L [id number], [id number] ####Patrol Conductor: UNA ARCE ([phone])[facility])[address] [place] [address] BASOPHILS (10*3/UL) IN BLOOD-CELLAVISION 0.2 10*3/uL Normal 0.0-0.2 [facility] Comment on above: Performed By: #### L [id number], [id number] ####Patrol Conductor: UNA ARCE ([id number])[facility] ([facility])[address] [place] [address] [place] BASOPHILS TOTAL PER COUNTED LEUKOCYTES BY MANUAL COUNT 2 Normal [facility] Comment on above: Performed By: #### L [id number], [id number] ####Patrol Conductor: UNA ARCE ([phone])[facility] ([facility])[address] [place] [address] [place] BASOPHILS/100 LEUKOCYTES IN BLOOD-CELLAVISION 2 % Normal 0-2 [facility] Comment on above: Performed By: #### L [id number], [id number] ####Patrol Conductor: UNA ARCE ([phone])[facility] [place] ([facility])[address] [place] [address] [place] BLASTS TOTAL PER COUNTED LEUKOCYTES BY MANUAL COUNT Normal [facility] Comment on above: Performed By: #### L [id number], [id number] ####Patrol Conductor: UNA ARCE ([phone])[facility] ([facility])[address] [place] [address] [place] EOSINOPHILS (10*3/UL) IN BLOOD-CELLAVISION 0.1 10*3/uL Normal 0.0-0.5 [facility] Comment on above: Performed By: #### L [id number], [id number] ####Patrol Conductor: UNA ARCE ([id number])[facility] [place] ([facility])[address] [place] [address] [place] EOSINOPHILS TOTAL PER COUNTED LEUKOCYTES BY MANUAL COUNT 1 Normal 0-1 [facility] Comment on above: Performed By: #### L [id number], [id number] ####Patrol Conductor: UNA ARCE ([id number])[facility] [place] ([facility])[address] [place] [address] [place] EOSINOPHILS/100 LEUKOCYTES IN BLOOD-CELLAVISION 1 % Normal 0-6 [facility] Comment on above: Performed By: #### L [id number], [id number] ####Patrol Conductor: UNA ARCE ([id number])[facility] ([facility])[address] HYPOCHROMIA (PRESENCE) IN BLOOD BY LIGHT MICROSCOPY Moderate Abnormal (none) [facility] Comment on above: Performed By: #### L [id number], [id number] ####Patrol Conductor: UNA ARCE ([id number])[facility] ([facility])[address] [place] [address] [place] LYMPHOCYTES (10*3/UL) IN BLOOD-CELLAVISION 1.2 10*3/uL Normal 1.0-4.3 [facility] Comment on above: Performed By: #### L [id number], [id number] ####Patrol Conductor: UNA ARCE ([id number])[facility] ([facility])[address] [place] [address] [place] LYMPHOCYTES TOTAL PER COUNTED LEUKOCYTES BY MANUAL COUNT 10 Normal [facility] Comment on above: Performed By: #### L [id number], [id number] ####Patrol Conductor: UNA ARCE ([id number])[facility] [place] ([facility])[address] [place] [address] [place] LYMPHOCYTES/100 LEUKOCYTES IN BLOOD-CELLAVISION 10 % Low 15-45 [facility] Comment on above: Performed By: #### L [id number], [id number] ####Patrol Conductor: UNA ARCE ([id number])[facility] [place] ([facility])[address] [place] [address] [place] METAMYELOCYTES TOTAL PER COUNTED LEUKOCYTES BY MANUAL COUNT Normal [facility] Comment on above: Performed By: #### L [id number], [id number] ####Patrol Conductor: UNA ARCE ([id number])[facility] [place] ([facility])[address] [place] [address] [place] MONOCYTES (10*3/UL) IN BLOOD-CELLAVISION 1.6 10*3/uL High 0.0-0.9 [facility] Comment on above: Performed By: #### L [id number], [id number] ####Patrol Conductor: UNA ARCE ([id number])[facility] ([facility])[address] [place] [address] [place] MONOCYTES TOTAL PER COUNTED LEUKOCYTES BY MANUAL COUNT 13 Normal [facility] Comment on above: Performed By: #### L [id number], [id number] ####Patrol Conductor: UNA ARCE ([id number])[facility] [place] ([facility])[address] [place] [address] [place] MONOCYTES/100 LEUKOCYTES IN BLOOD-LUCIANA 13 % Normal -13 [facility] Comment on above: Performed By: #### L [id number], [id number] ####Patrol Conductor: UNA ARCE ([id number])[facility] [place] ([facility])[address] MYELOCYTES COUNTED BY MANUAL COUNT Normal [facility] Comment on above: Performed By: #### L [id number], [id number] ####Patrol Conductor: UNA ARCE ([id number])[facility] [place] ([facility])[address] [place] [address] [place] NEUTROPHILS TOTAL PER COUNTED LEUKOCYTES BY MANUAL COUNT 77 Normal [facility] Comment on above: Performed By: #### L [id number], [id number] ####Patrol Conductor: UNA ARCE ([id number])[facility] [place] ([facility])[address] [place] [address] [place] POIKILOCYTOSIS (PRESENCE) IN BLOOD BY LIGHT MICROSCOPY Slight Abnormal (none) [facility] Comment on above: Performed By: #### L [id number], [id number] ####Patrol Conductor: UNA ARCE ([phone])[facility] [place] ([facility])[address] [place] [address] [place] PROMYELOCYTES TOTAL PER COUNTED LEUKOCYTES BY MANUAL COUNT Normal [facility] Comment on above: Performed By: #### L [id number], [id number] ####Patrol Conductor: UNA ARCE ([id number])[facility] [place] ([facility])[address] RBC MORPHOLOGY IN BLOOD abnormal Normal [facility] Comment on above: Performed By: #### L [id number], [id number] ####Patrol Conductor: UNA ARCE ([id number])[facility] [place] ([facility])[address] SEGMENTED NEUTROPHILS (10*3/UL) IN BLOOD-CELLAVISION 9.3 10*3/uL High 1.8-7.5 [facility] Comment on above: Performed By: #### L [id number], [id number] ####Patrol Conductor: UNA ARCE ([id number])[facility] [place] ([facility])[address] [place] [address] [place] SEGMENTED NEUTROPHILS/100 LEUKOCYTES-CE 75 % Normal 38-82 [facility] Comment on above: Performed By: #### L [id number], [id number] ####Patrol Conductor: UNA ARCE ([id number])[facility] [place] ([facility])[address] [place] [address] [place] STOMATOCYTES IN BLOOD BY LIGHT MICROSCOPY Slight Abnormal (none) [facility] Comment on above: Performed By: #### L [id number], [id number] ####Patrol Conductor: UNA ARCE ([id number])[facility] [place] ([facility])[address] UNCLASSIFIED CELLS TOTAL PER COUNTED LEUKOCYTES BY MANUAL COUNT [facility] Comment on above: Performed By: #### L [id number], [id number] ####Patrol Conductor: UNA ARCE ([id number])[facility] [place] ([facility])[address] VARIANT LYMPHOCYTES TOTAL PER COUNTED LEUKOCYTES BY MANUAL COUNT Normal [facility] Comment on above: Performed By: #### L [id number], [id number] ####Patrol Conductor: UNA ARCE ([id number])[facility])[address] Magnesium [Mass/Vol]on 04-15 Interpretation and review of laboratory results Normal [facility] No Panel Informationon 04-15 Basophils Manual 2 [facility] Eosinophils Manual 1 0 - 1 [facility] Interpretation and review of laboratory results Abnormal [facility] Lymphocytes Manual 10 [facility] Monocytes Manual 13 [facility] Neutrophils Manual 77 [facility] OCCULT BLOOD, STOOLon 2024 OCCULT BLOOD, STOOL FECAL OCCULT, STOOL Reference Negative Negative ORDER COMMENTS: Methodology: Immunoassay Normal [facility] Comment on above: Performed By: #### L [id number] ####Patrol Conductor: UNA ARCE ([phone])[facility])[address] [place] [address] Progress Noteon 04-15-2025 Progress Note Normal [facility] Progress Note Normal [facility] Progress Note Normal [facility] XR Chest Single viewon 04-15 [facility] Radiology Study observation (narrative) Lynette Balderrama alth [id number] 04-14-2025 [id number] Normal [facility] Bacteria identified Anaer cx Nom (Unsp spec)on 04-14-2025 Interpretation and review of laboratory results Normal [facility] CBC W Auto Differential pane l (Bld)on 04-14-2025 Erythrocyte distribution width (RBC) [Ratio] 25.4 % High 11.5 - 15.0 % [facility] Hematocrit (Bld) [Volume fraction] 27.3 % Low 40.0 - 52.0 % [facility] Hemoglobin (Bld) [Mass/Vol] 7.6 g/dL Low 13.0 - 18.0 g/dL [facility] MCH (RBC) [Entitic mass] 23.2 pg Low 26. 0 - 34.0 pg [facility] MCHC (RBC) [Mass/Vol] 27.8 % Low 30.5 - 36.0 % [facility] MCV (RBC) [Entitic vol] 83.5 fL 77.0 - 99.0 fL [facility] Platelet mean volume (Bld) [Entitic vol] 8.9 fL Low 9.0 - 12.7 fL [facility] Platelets (Bld) [#/Vol] 293 10*3/uL 140 - 440 10*3/uL [facility] RBC (Bld) [#/Vol] 3.27 10*6/uL Low 4.40 - 5.9 0 10*6/uL [facility] WBC (Bld) [#/Vol] 12.3 10*3/uL High 3.6 - 10.7 10*3/uL [facility] CBC WITH AUTO DIFFERENTIALon 04-14-2025 Erythrocyte distribution width (RBC) [Ratio] 25.4 % High 11.5-15.0 [facility] Comment on above: Performed By: #### L [id number], [id number] ####Patrol Conductor: UNA ARCE ([id number])[facility])[address] [place] [address] Hematocrit (Bld) [Volume fraction] 27.3 % Low 40.0-52.0 [facility] Comment on above: Performed By: #### L [id number], [id number] ####Patrol Conductor: UNA ARCE ([id number])[facility])[address] [place] [address] Hemoglobin (Bld) [Mass/Vol] 7.6 g/dL Low 13.0-18.0 [facility] Comment on above: Performed By: #### L VL7088, [id number] ####Patrol Conductor: UNA ARCE ([id number])[facility])[address] [place] [address] MCH (RBC) [Entitic mass] 23.2 pg Low 26.0-34.0 [facility] Comment on above: Performed By: #### L [id number], [id number] ####Patrol Conductor: UNA ARCE ([id number])[facility] ([facility])[address] MCHC 27.8 % Low 30.5-36.0 [facility] Comment on above: Performed By: #### L OQ5988, [id number] ####Patrol Conductor: UNA ARCE ([id number])[facility] ([facility])[address] MCV (RBC) [Entitic vol] 83.5 fL Normal 77.0-99.0 [facility] Comment on above: Performed By: #### L NJ3310, [id number] ####Patrol Conductor: UNA ARCE ([id number])[facility] ([facility])[address] Platelet mean volume (Bld) [Entitic vol] 8.9 fL Low 9.0-12.7 [facility] Comment on above: Performed By: #### L YA7231, [id number] ####Patrol Conductor: UNA ARCE ([id number])[facility] ([facility])[address] Platelets (Bld) [#/Vol] 293 10*3/uL Normal 140-440 [facility] Comment on above: Performed By: #### L TG9559, [id number] ####Patrol Conductor: UNA ARCE ([id number])[facility] ([facility])[address] RBC (Bld) [#/Vol] 3.27 10*6/uL Low 4.40-5.90 [facility] Comment on above: Performed By: #### L KR7158, [id number] ####Patrol Conductor: UNA ARCE ([id number])[facility] [place] ([facility])[address] WBC (Bld) [#/Vol] 12.3 10*3/uL High 3.6-10.7 [facility] Comment on above: Performed By: #### L [id number], [id number] ####Patrol Conductor: UNA STAUFFERMELANIE ([id number])[facility] ([facility])[address] COMPREHENSIVE METABOLIC PANE Anant 04-14-2025 Albumin [Mass/Vol] 2.1 g/dL Low 3.4-4.8 [facility] Comment on above: Performed By: #### L AB103, LAB17 ####Patrol Conductor: UNA ARCE ([id number])[facility] ([facility])[address] ALP [Catalytic activity/Vol] 47 U/L Normal 40-150 [facility] Comment on above: Performed By: #### L AB103, LAB17 ####Patrol Conductor: UNA ARCE ([id number])[facility] ([facility])[address] ALT [Catalytic activity/Vol] U/L Normal <40 [facility] Comment on above: Performed By: #### L AB103, LAB17 ####Patrol Conductor: UNA ARCE ([id number])[facility] Anion gap [Moles/Vol] 9 mmol/L Normal 3-13 [facility] Comment on above: Performed By: #### L AB103, LAB17 ####Patrol Conductor: UNA ARCE ([id number])[facility] ([facility])[address] AST [Catalytic activity/Vol] 19 U/L Normal <34 [facility] Comment on above: Performed By: #### L AB103, LAB17 ####Patrol Conductor: UNA ARCE ([id number])[facility] ([facility])[address] Bilirubin [Mass/Vol] 0.6 mg/dL Normal <1.2 [facility] Comment on above: Performed By: #### L AB103, LAB17 ####Patrol Conductor: UNA ARCE ([id number])[facility] [place] ([facility])[address] Calcium [Mass/Vol] 8.1 mg/dL Low 8.8-10.0 [facility] Comment on above: Performed By: #### L AB103, LAB17 ####Patrol Conductor: UNA ARCE ([phone])[facility] [place] ([facility])[address] Chloride [Moles/Vol] 92 mmol/L Low 98-107 [facility] Comment on above: Performed By: #### L AB103, LAB17 ####Patrol Conductor: UNA ARCE ([phone])[facility] [place] ([facility])[address] CO2 [Moles/Vol] 39 mmol/L High 23-31 [facility] Comment on above: Performed By: #### L AB103, LAB17 ####Patrol Conductor: UNA ARCE ([id number])[facility] [place] ([facility])[address] Creatinine [Mass/Vol] 1.43 mg/dL High 0.72-1.25 [facility] Comment on above: Performed By: #### L AB103, LAB17 ####Patrol Conductor: UNA ARCE ([id number])[facility] [place] ([facility])[address] GLOMERULAR FILTRATION RATE ML/MIN/1.73 SQ M.PREDICTED 46.8 mL/min/1.73m*2 Low >60.0 [facility] Comment on above: Result Comment: Calc ulation based on the Chronic Kidney Disease Epidemiology Collaboration (CKD-EPI) equation refit without adjustment for race Performed By: #### L AB103, LAB17 ####Patrol Conductor: UNA ARCE ([id number])[facility] [place] ([facility])[address] [place] [address] [place] Glucose [Mass/Vol] 97 mg/dL Normal 82-115 [facility] Comment on above: Performed By: #### L AB103, LAB17 ####Patrol Conductor: UNA ARCE ([phone])[facility] ([facility])[address] Potassium [Moles/Vol] 3.8 mmol/L Normal 3.5-5.1 [facility] Comment on above: Result Comment: [facility] potassium values may be up to 0.5 mmol/L lower than serum values. Performed By: #### L AB103, LAB17 ####Patrol Conductor: UNA ARCE ([id number])[facility] ([facility])[address] Protein [Mass/Vol] 5.7 g/dL Low 6.4-8.3 [facility] Comment on above: Performed By: #### L AB103, LAB17 ####Patrol Conductor: UNA ARCE ([id number])[facility] Sodium [Moles/Vol] 140 mmol/L Normal 136-145 [facility] Comment on above: Performed By: #### L AB103, LAB17 ####Patrol Conductor: UNA ARCE ([id number])[facility] ([facility])[address] Urea nitrogen [Mass/Vol] 39 mg/dL High 9-23 [facility] Comment on above: Performed By: #### L AB103, LAB17 ####Patrol Conductor: UNA ARCE ([id number])[facility] ([facility])[address] Comprehensive metabolic 1998 panelon 04-14-2025 Albumin [Mass/Vol] 2.1 g/dL Low 3.4 - 4.8 g/dL [facility] ALP [Catalytic activity/Vol] 47 U/L 40 - 150 U/L [facility] ALT [Catalytic activity/Vol] U/L NINF - 40 U/L [facility] Anion gap [Moles/Vol] 9 mmol/L 3 - 13 mmol/L [facility] AST [Catalytic activity/Vol] 19 U/L NINF - 34 U/L [facility] Bilirubin [Mass/Vol] 0.6 mg/dL NINF - 1.2 mg/dL [facility] Calcium [Mass/Vol] 8.1 mg/dL Low 8.8 - 10. 0 mg/dL [facility] Chloride [Moles/Vol] 92 mmol/L Low 98 - 10 7 mmol/L [facility] CO2 [Moles/Vol] 39 mmol/L High 23 - 31 mmol/L [facility] Creatinine [Mass/Vol] 1.43 mg/dL High 0.72 - 1.25 mg/dL [facility] GFR/1.73 sq M.predicted (S/P/Bld) [Vol rate/Area] 46.8 mL/min Low - PINF [facility] Glucose [Mass/Vol] 97 mg/dL 82 - 115 mg/dL [facility] Interpretation and review of laboratory results Abnormal [facility] Potassium [Moles/Vol] 3.8 mmol/L 3.5 - 5.1 mmol/L [facility] Protein [Mass/Vol] 5.7 g/dL Low 6.4 - 8.3 g/dL [facility] Sodium [Moles/Vol] 140 mmol/L 136 - 145 mmol/L [facility] Urea nitrogen [Mass/Vol] 39 mg/dL High 9 - 23 mg/d L [facility] Consulton 04-14-2025 Consult Normal [facility] ECG 12-LEADon 04-14-2025 ECG 12-LEAD IMPRESSION: Sinus arrhythmia LEFT ANTERIOR FASCICULAR BLOCK MULTIPLE ATRIAL PREMATURE COMPLEXES Compared to ECG 04/05/2025 15:59:31 No significant changes Electronically Signed On 04-14-2025 07:12:58 EDT by Ronal Maurice Normal [facility] Laboratory - Chemistry and C hemistry - challengeon 04-14-2025 Magnesium [Mass/Vol] 1.9 mg/dL 1.6 - 2 .6 mg/dL [facility] - Hematology and Cell countson 04-14-2025 Anisocytosis Ql (Bld) Slight Abnormal (none) [facility] Basophils (Bld) [#/Vol] 0.1 10*3/uL 0.0 - 0.2 10*3/uL [facility] Basophils/100 WBC (Bld) 1 % 0 - 2 % [facility] Eosinophils (Bld) [#/Vol] 0.4 10*3/uL 0.0 - 0.5 10*3/uL [facility] Eosinophils/100 WBC (Bld) 3 % 0 - 6 % [facility] Hypochromia Ql (Bld) Moderate Abnormal (none) [facility] Lymphocytes (Bld) [#/Vol] 0.9 10*3/uL Low 1.0 - 4.3 10*3/uL [facility] Lymphocytes/100 WBC (Bld) 7 % Low 15 - 45 % [facility] Monocytes (Bld) [#/Vol] 1.8 10*3/uL High 0.0 - 0.9 10*3/uL [facility] Monocytes/100 WBC (Bld) 15 % High 5 - 13 % [facility] Neutrophils (Bld) [#/Vol] 9.1 10*3/uL High 1.8 - 7.5 10*3/uL [facility] Poikilocytosis LM Ql (Bld) Slight Abnormal (none) [facility] RBC morphology finding Nom (Bld) abnormal [facility] Segmented neutrophils/100 WBC (Bld) 74 % 38 - 82 % [facility] Stomatocytes LM Ql (Bld) Moderate Abnormal (none) [facility] Variant lymphocytes (Bld) [#/Vol] 0.1 10*3/uL High NINF - 0.0 10*3/uL [facility] Variant lymphocytes/100 WBC (Bld) 1 % High NINF - 0 % [facility] - Microbiology an d Antimicrobial susceptibilityon 04-14-2025 Bacteria identified Anaer cx Nom (Unsp spec) No growth at 5 days [facility] MAGNESIUMon 04-14-2025 Magnesium [Mass/Vol] 1.9 mg/dL Normal 1.6-2.6 [facility] Comment on above: Result Comment: YARELI [place] COMMENTS:Higher values can be expected in females during menses. Performed By: #### L AB103, LAB17 ####Patrol Conductor: UNA ARCE ([phone])[facility] ([facility])[address] [place] [address] [place] MANUAL DIFFERENTIAL (CELLAVI BANDAR)on 04-14-2025 ANISOCYTOSIS PRESENCE IN BLOOD BY LIGHT MICROSCOPY Slight Abnormal (none) [facility] Comment on above: Performed By: #### L [id number], [id number] ####Patrol Conductor: UNA ARCE ([id number])[facility] ([facility])[address] BAND NEUTROPHILS TOTAL PER COUNTED LEUKOCYTES BY MANUAL COUNT Normal [facility] Comment on above: Performed By: #### L [id number], [id number] ####Patrol Conductor: UNA ARCE ([id number])[facility] [place] ([facility])[address] [place] [address] [place] BASOPHILS (10*3/UL) IN BLOOD-CELLAVISION 0.1 10*3/uL Normal 0.0-0.2 [facility] Comment on above: Performed By: #### L [id number], [id number] ####Patrol Conductor: UNA ARCE ([id number])[facility] [place] ([facility])[address] [place] [address] [place] BASOPHILS TOTAL PER COUNTED LEUKOCYTES BY MANUAL COUNT 1 Normal [facility] Comment on above: Performed By: #### L [id number], [id number] ####Patrol Conductor: UNA ARCE ([id number])[facility] [place] ([facility])[address] [place] [address] [place] BASOPHILS/100 LEUKOCYTES IN BLOOD-CELLAVISION 1 % Normal 0-2 [facility] Comment on above: Performed By: #### L [id number], [id number] ####Patrol Conductor: UNA ARCE ([id number])[facility] [place] ([facility])[address] [place] [address] [place] BLASTS TOTAL PER COUNTED LEUKOCYTES BY MANUAL COUNT Normal [facility] Comment on above: Performed By: #### L [id number], [id number] ####Patrol Conductor: UNA ARCE ([id number])[facility] [place] (SBHLAB)[address] [place] [address] [place] EOSINOPHILS (10*3/UL) IN BLOOD-CELLAVISION 0.4 10*3/uL Normal 0.0-0.5 [facility] Comment on above: Performed By: #### L [id number], [id number] ####Patrol Conductor: UNA ARCE ([id number])[facility] (SBHLAB)[address] [place] [address] [place] EOSINOPHILS TOTAL PER COUNTED LEUKOCYTES BY MANUAL COUNT 3 High 0-1 [facility] Comment on above: Performed By: #### L [id number], [id number] ####Patrol Conductor: UNA ARCE ([id number])[facility] [place] [address] [place] EOSINOPHILS/100 LEUKOCYTES IN BLOOD-CELLAVISION 3 % Normal 0-6 [facility] Comment on above: Performed By: #### L [id number], [id number] ####Patrol Conductor: UNA ARCE ([id number])[facility] ([facility])[address] [place] [address] [place] HYPOCHROMIA (PRESENCE) IN BLOOD BY LIGHT MICROSCOPY Moderate Abnormal (none) [facility] Comment on above: Performed By: #### L [id number], [id number] ####Patrol Conductor: UNA ARCE ([id number])[facility] [place] [address] [place] LYMPHOCYTE VARIANT/100 LEUKOCYTES IN BLOOD- CELLAVISION 1 % High <=0 [facility] Comment on above: Performed By: #### L [id number], [id number] ####Patrol Conductor: UNA ARCE ([id number])[facility] [place] [address] [place] LYMPHOCYTES (10*3/UL) IN BLOOD-CELLAVISION 0.9 10*3/uL Low 1.0-4.3 [facility] Comment on above: Performed By: #### L [id number], [id number] ####Patrol Conductor: UNA YAZMIN ([id number])[facility] (SBHLAB)[address] [place] [address] [place] LYMPHOCYTES TOTAL PER COUNTED LEUKOCYTES BY MANUAL COUNT 7 Normal [facility] Comment on above: Performed By: #### L [id number], [id number] ####Patrol Conductor: UNA YAZMIN ([id number])[facility] [place] ([facility])[address] [place] [address] [place] LYMPHOCYTES/100 LEUKOCYTES IN BLOOD-CELLAVISION 7 % Low 15-45 [facility] Comment on above: Performed By: #### L [id number], [id number] ####Patrol Conductor: UNA YAZMIN ([id number])[facility] [place] ([facility])[address] [place] [address] [place] METAMYELOCYTES TOTAL PER COUNTED LEUKOCYTES BY MANUAL COUNT Normal [facility] Comment on above: Performed By: #### L [id number], [id number] ####Patrol Conductor: UNA YAZMIN ([id number])[facility] [place] ([facility])[address] [place] [address] [place] MONOCYTES (10*3/UL) IN BLOOD-CELLAVISION 1.8 10*3/uL High 0.0-0.9 [facility] Comment on above: Performed By: #### L [id number], [id number] ####Patrol Conductor: UNA BERMUDEZPEDRO ([id number])[facility] [place] ([facility])[address] [place] [address] [place] MONOCYTES TOTAL PER COUNTED LEUKOCYTES BY MANUAL COUNT 15 Normal [facility] Comment on above: Performed By: #### L [id number], [id number] ####Patrol Conductor: UNA BERMUDEZPEDRO ([id number])[facility] [place] ([facility])[address] [place] [address] [place] MONOCYTES/100 LEUKOCYTES IN BLOOD-LUCIANA 15 % High 5-13 [facility] Comment on above: Performed By: #### L [id number], [id number] ####Patrol Conductor: UNA ARCE ([id number])[facility] [place] (SBHLAB)[address] MYELOCYTES COUNTED BY MANUAL COUNT [facility] Comment on above: Performed By: #### L [id number], [id number] ####Patrol Conductor: UNA ARCE ([id number])[facility] [place] ([facility]AB)[address] [place] [address] [place] NEUTROPHILS TOTAL PER COUNTED LEUKOCYTES BY MANUAL COUNT 75 [facility] Comment on above: Performed By: #### L [id number], [id number] ####Patrol Conductor: UNA ARCE ([id number])[facility] [place] ([facility])[address] POIKILOCYTOSIS ([place]) IN BLOOD BY LIGHT MICROSCOPY Slight Abnormal (none) [facility] Comment on above: Performed By: #### L [id number], [id number] ####Patrol Conductor: UNA ARCE ([id number])[facility] [place] ([facility])[address] PROMYELOCYTES TOTAL PER COUNTED LEUKOCYTES BY MANUAL COUNT [facility] Comment on above: Performed By: #### L [id number], [id number] ####Patrol Conductor: UNA ARCE ([id number])[facility] [place] ([facility])[address] [place] [address] [place] RBC MORPHOLOGY IN BLOOD abnormal Normal [facility] Comment on above: Performed By: #### L [id number], [id number] ####Patrol Conductor: UNA ARCE ([id number])[facility] [place] ([facility])[address] [place] [address] [place] SEGMENTED NEUTROPHILS (10*3/UL) IN BLOOD-CELLAVISION 9.1 10*3/uL High 1.8-7.5 [facility] Comment on above: Performed By: #### L [id number], [id number] ####Patrol Conductor: UNA ARCE ([id number])[facility] ([facility])[address] SEGMENTED NEUTROPHILS/100 LEUKOCYTES-CE 74 % Normal 38-82 [facility] Comment on above: Performed By: #### L [id number], [id number] ####Patrol Conductor: UNA ARCE ([id number])[facility] ([facility])[address] STOMATOCYTES IN BLOOD BY LIGHT MICROSCOPY Moderate Abnormal (none) [facility] Comment on above: Performed By: #### L [id number], [id number] ####Patrol Conductor: UNA ARCE ([id number])[facility] [place] (SB[facility]AB)[address] UNCLASSIFIED CELLS TOTAL PER COUNTED LEUKOCYTES BY MANUAL COUNT Normal [facility] Comment on above: Performed By: #### L [id number], [id number] ####Patrol Conductor: UNA ARCE ([id number])[facility] ([facility])[address] VARIANT LYMPHOCYTES (10*3/UL) IN BLOOD-CELLAVISION 0.1 10*3/uL High <=0.0 [facility] Comment on above: Performed By: #### L [id number], [id number] ####Patrol Conductor: UNA ARCE ([id number])[facility] ([facility])[address] VARIANT LYMPHOCYTES TOTAL PER COUNTED LEUKOCYTES BY MANUAL COUNT 1 Normal [facility] Comment on above: Performed By: #### L [id number], [id number] ####Patrol Conductor: UNA ARCE ([id number])[facility] ([facility])[address] Magnesium [Mass/Vol]on 04-14 Interpretation and review of laboratory results Normal [facility] No Panel Informationon 04-14 [facility] Radiology Study observation (narrative) [facility] alth Case Report [facility] Case Screening Location [facility], [address] [place] [address] [place] [address]; CLIA: [id number]; Joint Commission: HCO [id number]; CAP: [id number] [facility] Comment i2nueWCtYZAafXRpUNSf M NghwoWgPWAbfLZoX7Zuwj xoMWnkMR8jVG6beQytaRD evRWjXOFdPgSah1gpy883 eNKgn4xjFNYNZQqoSJACP An0kXlxD06xg0J4EepnO4 7hdIEvYBF6KRHxSXFznLV aKVLwMUY5VAKxdOOhR2mv RVCoHG5wcjzfYPnqQXewV XZgpTO3QMXxbFKgO3LhEF FeAXkrHRDzxif3FgGmTg3 vdGVyeTcyMFxwYXJkXHBs YWluXGZzMjAgUGxlYXNlI LSuEINsc1FhY2afgVXeEY EzCPLcx4TtRSC7uD0yb4x 6RBEuJTMzjUCjJVhYLqV9 PBAfGCIazTWxVrx5TEX0o OMkEJGxYJm4pN3uXKrvq6 6ti3ZkZgvdALP4 [facility] Disclaimer c6qvmQTyLBKrnWBlZyIt M YXcMRRkz0auMDUknAOeOr EwMzNcZnRuYmpcdWMxXGR yIbSzj7zkq282hJZla2pg NXMaLyS9eHNeGEPpD56gL YYIZ386FXKzRJruy0hxl1 TrRNYmiPIxy7D5NDFLAWa oCVXUZNj1xBhxN94vf6I8 OykyH8ycSESsHVLpR4KfU Z1vDSQqCyq9GAC7CVI8KH JhRRBzA1OmNJ7cUKBypSD nOXu9u4jnyTuiBKRmQLA5 i2chEBfomiOoMP3qoi6ec Zw6u7xcnyJaGIHlITLwuX NVVFMeU0GvxYrdMg4ywLi 5kSxjDuvoLSC9Mei8RL8k sl84uvx0xDdhKJXykdguW rW3XNfaSLEgjcrsJWn4CJ iyAMMkhQQ6VEAtsMOyJ7C lNITgDG7qxuo0SSM4KEoe MHZbXiF5OVRwzVGeBWFyr RenFRaci045JIE7NrNfPO 2rN4Rcn4Y4wF3qwZQxAUR xcZUgEtYfVEJvqe7nlHIo JNcgi6JuWJT4vsM6pCIey QAfZOXvQO43Sbvbv7FzDc sqPDT8TZUxdqQep7Aet3e aIeGtbqGhP4saL6KcOVCu CVHtVNSdPzUcauFhr0Yuy 4OfrGTovHw6g9dlAPWpTK SscOjti0uzESU0NPSuP3R 6fJPwa3iiLFuuXOPaxOI6 nzW9ZYXdiSSmH7XudA7gH GVyNZ2uitb7i0kgREJ5UM lzHXCjCwW7ivX1ERCbjWY iZZVohMidYKvqv908PUR5 LaEeWEGyz1YhM3LrhHybH 17iqDtfP37tMLUniNlwkR 7yiWybpH0nFoNgAjWiDFq xbFxwbGFpblxmMVxmczE2 RCmbkmtpBXGbKYyuJ6xbU gBmZJFeiWxlJXzft4CyJP YvAUTlIAMdXQzaX0tsnI5 iicnjABrgVHGevRudb8rg RaEmyUD9PG6hdgKiLLQxw TwghpN7vwMriEsmvW3jiK 3dxGzlrQ0irLAztWK2ihf sIGluIHNpdHUgaHlicmlk hTfmyVambtbmtV4vWXO4b MMiHUU1eSYqLAIzGFClVF CktA97mj3bqKJfwaZgT3Q rI9OqqNPqvZvbCygmjUZe eRNbKk5gnOEoLL5wPGPws UIaH3XtMG2lRBUxwcfjTK IgVGhlIHVzZSBvZiBvbmU en7UhlL0qXXXbUJAsMV77 xnDulnR4jDMjUPQkhnWtq GVzdHMgaXMgcmVndWxhdG HbOIQsKQTsVEThSSc4hWP dl7ZdR6cegACgxaOcZ4Lx zASzZLADPG7bDEchs6Uom QSheLIms3PfHHKtFHXnkP 3zAQInOL9mKVLoRIxrWOO tahFllb4llcMcAEKeXHXa G7JsrwfccWpifgDqCJKol u1rjwPpZEV5WYTeKPLohK darOUfePWiIPTvvwG3r0K wIFCst2HqJ0TnoDZqZFYe yAGqOFY5w4ZabY6dYMkjg FYeQXMoQZ9urGPpFKUqEK NsZWFyZWQgYnkgdGhlIFV AVOLmj6LnPL9uYVEplJat ODLyeF3vs6LuPBUih20qD EZEQSkuIFRoZSBGREEgaG FzIGRldGVybWluZWQgdGh brZQreKVpUYXbKLUiYX7k SIRhqyMpeMLgu7UvjCXul sArg2FjnuNsHBOiBYQ2Bg BccGFyXHBhciBBbGwgaW1 qwO9ao0ZpmW3wWQwgjnBw vQEvLh4ypNHwEX3kKZUzu mFmZmluIGVtYmVkZGVkIH Nhu6U8GC6rHNJfbo5wbgv irXUydY2dwMWchfDcIO8a QU5dT2F9yOYtNEJhaiTpo 1wpBIy0kZWaWTXgeDNenC EvFnsyLWN1LAFxQQR2fvE vmkUaINAnaZercEA1vDJl IGOrGWRtUMIfLL62Q6Utr 4EqT2jdFJ43NWNxKQVuVL DhinZge2hmUIMge8qwYEQ ggKQuS5JrUAHxpJWritzu IzFtANH0DBHfMYK2gXZvY WXuI4AueTTdyIBflM46PY 1eyUE2QD0bLXK1TXbrkK3 mYxGEbF70rb5ksUM4b8Pn UG7xC4XkFJJou8Z1ttOaD ZRuSS0myLSbIIMjAGLnjQ lkYXRlZCBvbiBkZWNhbGN cXomxNNC0qOHmiDXnHwHK OPL1nHJrAMTcx2TiZETmO HUtskVepoQvCRLaQLM9hN BaBGAmfZUxh62tK3c7LA6 jhFgnDPAlyLPsLSBgz6Tj bQPllJk1fCTnLcPfLBkpO YZmOGaqjBl8mHN8AQ4nEJ NcY8YnS1mxaJKyDXLcXDX rbDFvta9viVWtfH== [facility] u6qzyDZcCTIpmVBHBWYp M IXpOV2jjDzwtNc9lFlpSY AifqB5jITfQXema2kzBDZ 8t1zfpzGELyiqJJGvRZ3c DCwiDYDcXR4hEdJnPTWiU mYxXHBhcGVydzEyMjQwXH XdxYJulDM6DZGvCD8djau lPWauNHvgZFBujtS8TCWm hYSkD3YoIZPwCK2dxihhC UV4UTSIVnhgXp3ulWCykI ANCntcZjFcZmNoYXJzZXQ kENOqj4enllVUnwydnWz5 HJa4TVKpVQMrwDFjj5R7M Gqma0gou3MbA7Tcj6LsMK n1uY2SAbvfS11qx6S8Kmy 6FEEsQLr1JSlvNVQrLXCl Dfw5GHw9I4taXXVpONlkS FBiCUfnsSRxQXv7ZEfpv5 LtcYKhUPe2UTmyCSJlA4F kK1YoIEdsAqWtRQfuYEVt ZZWaTObaULBzS5EQDUPhV lY8KdS8RXImQVl4PCyuVj YGARX6TYc3KxG9PGs7GSX lCN0cLQvmqWWkNPvrJzrp PVosR709HQmaKWFyT7TfM 3QgXFxzZyBcXGlkIDUxMD SxQSvyVYSjH4RVPBEdOwR 3EaN8XBByVYe3QFahZ6CJ UHNySCE4YGP1VlWiAhN4Q Fm4PJVPYe7nPSF5RBB2RV alNSX9YQVmHOfxrfquIXb 0IDIgXFxzcyAzIFxcZmwg RMgfQ70fjCJgKNJELatci GFpblxlcGljTmVzdERvYz NjLZkchQWpuPIkNK9JYBk 0cmNoXGNmMVxmczIwIEEg GFSPtCF5peSyAKUnigp2u YnvNpwmhJI3YNBsHWMbTA dnXGJtXLj9KDDprDbsEBP xr6KdQ3H0VVLlGGufb2zg PTEpLNndn5VxSHnIHVDYE Y1NWE7kxDT6IExJGQLWM8 iTjHBhRQSyP9alwSE6c4x viMOdm0t7EXgpFCR0rPBq q1PidQdnQeibnGI2LOtpU woteK7myXVOCDVQHswNTn crtpXnIX0CQCKQFQ5MbWZ rTIYmC0byqMA2k6asrEEx r2i3BRrxDNA1pGemvZIqi lxsdHJjaFxmczIwICBccH IovKIjuIkxVhiasSL3FKn dAwipiN1nbVMEIOAJNjrP AqsbwcSwQD8BYOEYYdLZH L86FFT0CBQ8rRR0Md54IK FjSOOxwJQcTYomN525r7R pyknwa4rglAFpKMfxStcn dZOuqrT6RWwYXDAXLStAR qJwIM1zOEtJN2RMJaH0IU H0ILU4kHL7Dv50QUSbXWD zvAKlRLehM104VCEpWYdf IEx6bjYjEBXsOeBcZYDks JryLLOtH0IsinHkXUwako 36GFH0f8ncsOPfXJwrCql kqDNvssC8QJkPTQDYXEuK ZjGdKH0pITjQZ0VUIByGI myxTKjtHdI1C4izhLeyOt wvvyMhxWZnNsVNrK8xecP yrNwdPwdwcAO0MGggSjbx cZ2zqOYNTNBXCivXFioln jTnLG7CWTKYCW8KaJWpVF OuEQgtjZZ1k0jyfLBjx5k 7JAwdGXP8lEixsHYqqpev fRRabNxhbnWxJR5yWFUfk iANClxiXGNmMiBNYXRlcm gyfDIjLDOyvENgACV1ATZ mEUYwECBjPGBijC6OgdCs IGFuZCAxIENlbGwgQmxvY 3yypicthDEbDU9BHBDige ANClxmMlxmczIyXHBhciA NEgwpHVDqCDWgkDLQr1Hb XBBADiu0LP4XREOsGYEuz RAXHIZ2HF0dMVyaGHPgR4 UgY1YamaU9o6snqNgfg3B amBNoXC3auRApWO0WUQQb hgNsPJrbwTvuzI3pEXz6 [facility] Pathologist Interpretation Location [facility], [address] [place] [id number]; CLIA: [id number]; Joint Commission: HCO [id number]; CAP: [phone] [facility] Pathology report final diagnosis Narrative e2cirOBuQCEhcZOiIRAuM ShwhkZlJAUulOAgN9Yxtx mqCXswQG4fLM2lbEvbbRQ cqQQgWGCjQrIre3hro062 sOFjh1vbHAKRPCgzCORFE Yy0xMtbF32fm9A4VqneW1 ilWBH3EJoeptUtbpa2YTM ylHK7ZYb1RBZpmFRbeuIy ZlTxTPJgmKOeqGD9IVHlV N9zvmshTYtiMMfrMYHwvs Y0VRWukNRcJ1VxMWFpWL2 ynjapHHF2ORrkFTVdFHZ0 ZiFbTXFpd4Blobe0PoXfc GFyZFxwbGFpblxmczIwXG NmMSBBICAtIFBsZXVyYWw sM3B7fSG8NXSFtOhfaCJd CRHfFFtqGgo3oZMgEQW8d R2lb1l1YyuzJyRsXIYdnW SwYM4YHV4NWHyPBiNBPFT DRUxMUyBJREVOVElGSUVE YmxcOXSdOoINU9ZEIvAkQ 6VGFVXCKQWOD6YBNivtQA XoUT0bbIWopNJ8jO5aXFP yZXNlbnQuIFxwYXJ9 [facility] CV EPIPHANY [facility] Atypical Lymphocytes Manual 1 [facility] Basophils Manual 1 [facility] Eosinophils Manual 3 High 0 - 1 [facility] Interpretation and review of laboratory results Abnormal [facility] Lymphocytes Manual 7 [facility] Monocytes Manual 15 [facility] Neutrophils Manual 75 [facility] No Panel InformationOrdered By: Marianna Francois on 04-14-2025 [facility]. Work Phone: No Panel InformationOrdered By: Danyel Platt on 04-14-2025 Case Report [facility]. Work Phone: Case Screening Location [facility], [address] [place] [address]; CLIA: [id number]; Joint Commission: HCO 6964; CAP: [id number] [facility] [employer] Work Phone: Comment x6ofcIQyTRWnpJJzCTAc M PzseiTpFEFvvNVgH2Sblu jmDUnrBH4iKN1aiKugdYP blGRaKHYxSeVox6ecz587 nIDqa1fbDOUVZNynKIOMZ Uv6nXiiF02wz2H5QfgzV5 3eeXEeCDE2MTPfUJMyaAG dDFKyQBA9PMOnkPEhU7hm NLKgFZ6jkhqfZTvfBRqfF EMpfBF9EACmwVRzV3PhUS FvNUulEEIrccp5IrKmFl9 vdGVyeTcyMFxwYXJkXHBs XMpxYDTgMsNuFZ3lcB2wj LnivP5ylNNsuVG7lymwSS juxGkaB47adCAdiGP9NHX GZbAwmvXmJ3IypxA2uV1h biBoaWdobGlnaHQgbWVzb 7VmZFrmMMsoZ7MhjMOxSL BCRVIgRVAgNCwgVFRGLTE pXCVVEXbwRF2lHXPQAvVu TRZhXA0gL3P2gJTbDqLzF 3VsRyHizClylRmzZ1y7lt AsrR0kkw13tlOmQYRww4G cUQaktp1oiWYhpF== [facility] [employer] Work Phone: Disclaimer z0dvoMGtGPQkiVEwWpAm M HSzSVDvs3jcGOKwvXXzTn EwMzNcZnRuYmpcdWMxXGR pQyYuw3oxb043eUVan6yn QHOqJiF5zMDcRHIvT46sU AAAZ281FOCvWGnrx9hrz7 TdFYYqoSKtd9C9TGYQOIf hFIMEMTg4zIofO11qt7L5 IazvZ8rrGNKkWHRrR0PdD D7rLCQoZrk4FUD1EMA2ZP VhUJNjQ2YpTN4hFEQvwBL xEVa3b5disSpjTCEfJXT5 q2ckICjljaSvOC5ibp2uj Mc5q3wfwrAgEPQzQWDvyR ZVAZGjY0VycQlaYc0bjLx 3xQrkHbfjEHK4Nui4RM3m en05ddr5xQmqXMNbnmzyX uF4KWpvENMuegnvALy8YG ahTYUorIO5HYAktVAfL6E eOTRhSD1jtnx3GCX8QTdv GMGvCiO9TCXzoJRqORKra UtuBKqgy600MJP1MaFyOH 8hF6Osy0Y0yC3hsWQqSIJ jnLWrNdTfUGTxwu3vmBBm MKxvy0OnFTT8moY5qMZmb KTxDURqAR72Knodr6OjGv jjZQQ3VBBcknCqm9Fed6s mAbRhbgTbT9qyD8RkALIh IRTdMZOqVpThlwQzy1Jfq 1XnrNMpxKr1b0nxSMDvUY EyxHiix2ohQLH5NYZcD1X 1sOPdp5mtFEhxMAMbkXT7 faA1ZSQrjDHjG4CpwL9oL BKlQB1sqdd5d9ucERB0MF zbIGAmXxG6lmF7UWSksXF cGFVsaCihHSxlb087HHQ6 ArCyCCFxa1DfT7BeaMirW 67mnKujS55ySOSyfJtomA 9upOgibD1bXyZkNtHxSNm xbFxwbGFpblxmMVxmczE2 WMqkykdnLYTgXKmdB9syQ hYfTNJzoZjxLYnyp4FiPY EuDZZqKTNaVEvnL9tynS0 ypbkmUVxaRBXrxObwa4il ZvVacEN0WX7isuSkYUCva RitqwR2hpLgmAkouF5dxU 5oqDgqnI4wxDDhiVQ4fbw sIGluIHNpdHUgaHlicmlk zLphdJffndynuR5yBBI7e VAgTQJ7qNAmGAKsKOZbTO VcpA01ni7iqAIvboYoJ5W yM3XluKKeyKbcEnvnjCTs qMGnVo9edRAaAN8oDSRuy UWmM2EpSU0oVOXlwmgnXS IgVGhlIHVzZSBvZiBvbmU ux0GytW1oVHXnMEKxKC97 uaMwsjH4nRBtONAilpJmx GVzdHMgaXMgcmVndWxhdG IvPORdMYZyNVOfTAx7yRJ ob3PoA9nleWWqfwIiB0Cw jDXlVHFZDW2xCEelb0Gru LPiqQLhx2WgADGaNNQmbI 8qCMQoOC1qWPVvALoiEGZ qejVblk6wwnAtAUHnNYAn G0SxrhbulRqpixNbDSGae d2qesWrCWV5MBHsSMHdoP fwuUTqpLAbYGYbzwY4z5J dPMLdq0XiQ2ZswJClSVVy uSVnLBE5g8XvpR6dDKocn IWyWWHaEW1trIYrMWFrDC NsZWFyZWQgYnkgdGhlIFV SMSWzo8KwUL5wPAPgvVbb DEBmvS4ix4EtXQXzw51dX EZEQSkuIFRoZSBGREEgaG FzIGRldGVybWluZWQgdGh gnFIexYJbNWHpTOEaQH2j HNKbiwJyzFXwj4StdOXqc rNda1PompMeIKHlXLZ2Is BccGFyXHBhciBBbGwgaW1 qhX6nr8EwhE5fFBamceEz gMQnEc3cmQWtXC5bHAOov mFmZmluIGVtYmVkZGVkIH Xme7O5HS6uXZHdwa4mjyy hlVZwmM2ytSJrryVmKY3c HX9pK1P2lLMlLRTrzfVzy 8iaBJr1iSQaYDFqlHTwjS UuFbvhFNX7EMGnZIA8akJ xztZyULXqeDcojYF9yJGk CJWpMHClUYBoUZ54X0Wzc 7VmI2mrLG73EWPoYOLsME JonvMhj4lwYFBlo4ggFTJ rnQPuQ5OlGSIqmMUbxevt ZjCrGMT9AJTeAWQ7qYBkY UKkP6XjgMJjcKMmzF71VD 7udYN4XD0vKDL2HSrjvQ6 sXgNIuC70pl6ikSS4w1Zr PN8iM1QtPLTim7H0rvMdE VVxVE6reVKgLVLnYHKjxR lkYXRlZCBvbiBkZWNhbGN jUggnDJL2fJVovUExWwPY UIW9aHOgXBQkq9OfNVUpC UJqydPgwuPvNUVqAGB0qV EpWYWxmRMcj49hI4y1OI7 roQosNRWoyVZyATWas3Ta qFDevCf4tCSzGtSlULtiB BQoPUdrnRz5rLH7UM5dVH PyL5QhT0syrSEwUOVtQNG vpLKhih1ttHVbiF== [facility] Work Phone: Gross Description o8wjlUIeQOVzmMDCHEGx M TAyTG6zpDnegEa3iYylTI LyfwD0aXJwVHwoq4unXVM 9c8rwglKDFzudLTQtVJ7v LXucWWFdER9pSdCzCHHmT mYxXHBhcGVydzEyMjQwXH LedYJuuPD3XXGpTI9ogwr jSUavKYuyPLNtuuC6MWHo rILjU2AeJJUoUE2hcrtlN JM0JLEOQujjHm3toBHwlV ANCntcZjFcZmNoYXJzZXQ sEQKte5zzavYEumzrqTq8 VJa0LVMlLQJklBFnu3C6B Uccn8ymh5LhS4Wxf0KfZG f5sO6ZZryqC56mu3F1Wcq 3WOCuPQj7BYlyAZKbCTBc Dtg9LQa0S0iwHHNzFXjqG RYuTPcwzSLrFPg2MBrtu5 XddIPdKHv7KRwcFNWzM1X pL3XqATtdKtQkSJjzTQQx YLZnLIxmFFZhL7DXZGPlB sZ8YPy5WGHyDGb7HQpaDh RRCQM1LWE6CzS3BUk4YAB mVQ1vMVmpvKRdTCqaHwfs BAlqZ321VRqaYBEwG3EzI 3QgXFxzZyBcXGlkIDUxMD QpAGeaLVYaW8GDBBVrLxC 2CUp5RVSjFSv9UJhbI4ZU RBJlLBU8UWT0LoP3CaE3V Wl8ULHNBl3kXNR4Icj1Bq l2LKD7LXIaILgykbicDSz 0IDIgXFxzcyAzIFxcZmwg RMvwO87wqZPmLWJXGobkx GFpblxlcGljTmVzdERvYz KhUUqpuNEmeRGqHF2QQPs 0cmNoXGNmMVxmczIwIEEg MHCJvWG5rfNqBYUpfrg9f EshSZQngDqwY2MbRRJeIH BhciANCjEwMDAgbUwgXHB qr6CvV7U4TPEcKWrtj2xo ZFFjYBiyu6MnNGcILYGSK U2FKY3keRS2DZkNDXIYO5 vLsOBpKDVpY3mpgSQ3t7l raWQvq5l1ANjeHRG7sCEs l9OkfEnyBqkzvKV1IUmnO uinyA0heAPUCAEIXteTPg iqjlQkLB2GJUADJH4IvOJ nBCBvC2sukZG4m2fixJWu b8n9YFpfWSK4yEdutAInr lxsdHJjaFxmczIwICBccH XkhGItfNmbAxutkZH9BVk xDzyqdC8tdRMGEQYVUdxV DdeauxQnVN9KKDXOYfTWO S94KVE9VKE3sPV2Sq05YU CbDTHvkLNcTWkjT444dYM ceI76w9wsgYSnGNadJbbf vBBknzU8JPjXVEFIXPsSU lPvOB7dWJtCF8WHAfA9VR J2JHK3jQC4Hi58IQErHVL sbLRwMTgoH954ELCsMHyi ZDe7vqCbNPSeHwJfNTWkg ZumQOUyD7UwqiJpLVnzcb 39JPO5k7wfrGLbKFskQag tdTHkfmS6FFwZZSLZZYpE IySiIZ8hRKyJU3LCQWwYD rbiGBmzUtR2B3ubnMzoAb wwwvXaiLBzLuVEaK6ahuF jtSwoCtxjkUT4XWxkJron rK7khGRHCVHEBpnKYgcra lSjZI5BSPOQQY3CpSXhUD NmXYqbmAX8d0funTJwf5v 1OTfnENT2bFuuhYWjteoc yKAijFeyxiBgNK7hIKCfn iANClxiXGNmMiBNYXRlcm ijmREfWQCkmCKcJPH1UOY vGERtFXZqEJWoaN6TkrBk IGFuZCAxIENlbGwgQmxvY 5lvjcntfWYrVY1UJDGbri ANClxmMlxmczIyXHBhciA UWyfgWJKvTAOykYPLs5Zg FALFYcs5DQ8LWKBhJLVcx ORVXOK3LI6zYGmgKUIeV1 HlY0VtbeY2a5zmuLhna8Y yjOYmII5oqDTvKI6ZSUAq vcIlECrxtUkzmH6hJPw9 [facility] [employer] Work Phone: Pathologist Interpretation Location [facility], [address] [facility] [address]; CLIA: [id number]; Joint Commission: [id number]; CAP: [id number] [facility] Work [facility]: Pathology report final diagnosis Narrative i6cwxVHtDNTpnQGzGNTqM VlzulOzZTPvbFOfV3Myiq lnBQxkTP9jAY5lfYpnuGI pgNBlOKGdDyJfd1kdj269 dDSrh6dfWPPYIVoeCPRDE Vd5eEpwY00pc5C0CnjhE3 bjAGP4OJthuiHnwhl7XZW esJU3PSv4CNAllKRmcaEp AiJjNKNhvJEjnSP9MFUdR S8lxqlaLLvwKNfyHMLzeo W9GIWlgCWeZ9UiYAGoGG1 qhnkgXWJ3ZXhgRHGxSJR3 EiZaOVAfo4Mhshx3CcPaz GFyZFxwbGFpblxmczIwXG NmMSBBICAtIFBsZXVyYWw vD1W2gYI0PCAWOSE8TM0n Dp4qdYZBjRQfQTglT0w7i 9blB8i0VCKmYLBbOQspNC SyIw3lHMIRZWqOKM6FFIC BJGcEUCsNAJ2GZCXBJXWc XHBhclxwYXJ9 [facility] [employer] [employer] Work Phone: [facility] [employer] [facility] [employer] Work Phone: No Panel InformationOrdered By: Ronal Maurice on 04-14-2025 P [place] 44 degrees [facility] [employer] Work Phone: WA Interval 134 ms [facility] Work Phone: QRS [place] -35 degrees [facility] [employer] [facility] [employer] Work Phone: QRSD Interval 117 ms [facility] h Work Phone: QT Interval 390 ms [facility]. Work Phone: QTC Interval 450 ms [facility]. Work Phone: T Wave [place] 78 degrees [facility]. Work Phone: [facility]. Work Phone: Nursing Noteon 04-14-2025 Nursing Note Normal [facility] Progress Noteon 04-14-2025 Progress Note Normal [facility] Progress [facility] Normal [facility] Progress Note Normal [facility] Progress Note Normal [facility] Progress Note Normal [facility] Progress Note Normal [facility] Progress Note Normal [facility] US GUIDED THORACENTESISon US GUIDED THORACENTESIS Normal [facility] Vital signsOrdered By: Jaek Maurice on 04-14-2025 Heart rate 80 /min bpm [facility] [employer] Phone: XR Chest Single viewon 04-14 [facility] XR Chest Single viewOrdered By: Anthony Christian on 04-14-2025 [facility] Phone: [phone] 04-13-2025 [id number] Normal [facility] BLOOD GAS ARTERIALon 025 AMOUNT OF OXYGEN 2 lpm Normal [facility] Comment on above: Order Comment: Pleas e draw tomorrow AM after using BiPAP. Thank you! Performed By: #### L [id number] ####Patrol Conductor: UNA ARCE ([id number])[facility] [place] [address] Base excess Calc (Bld) [Moles/Vol] 11.7 mmol/L High -3.0-3.0 [facility] Comment on above: Order Comment: Pleas e draw tomorrow AM after using BiPAP. Thank you! Performed By: #### L [id number] ####Patrol Conductor: UNA ARCE ([id number])[facility] ([facility])[address] CO2 [Moles/Vol] 39.9 mmol/L High 22.0-28.0 [facility] Comment on above: Order Comment: Pleas e draw tomorrow AM after using BiPAP. Thank you! Performed By: #### L [id number] ####Patrol Conductor: UNA ARCE ([id number])[facility] ([facility])[address] HCO3 (Bld) [Moles/Vol] 38.1 mmol/L High 21.0-27.0 [facility] Comment on above: Order Comment: Pleas e draw tomorrow AM after using BiPAP. Thank you! Performed By: #### L [id number] ####Patrol Conductor: UNA ARCE ([id number])[facility] ([facility])[address] [place] [address] Hemoglobin (Bld) [Mass/Vol] 11.3 g/dL Low Screen only [facility] Comment on above: Order Comment: Pleas e draw tomorrow AM after using BiPAP. Thank you! Performed By: #### L [id number] ####Patrol Conductor: UNA ARCE ([id number])[facility] ([facility])[address] [place] [address] OXYGEN SATURATION (%) IN ARTERIAL BLOOD 95.1 % Low 97.0-99.0 [facility] Comment on above: Order Comment: Pleas e draw tomorrow AM after using BiPAP. Thank you! Performed By: #### L [id number] ####Patrol Conductor: UNA ARCE ([id number])[facility] ([facility])[address] PCO2 ARTERIAL 59.2 mm Hg High 35.0-48.0 [facility] Comment on above: Order Comment: Pleas e draw tomorrow AM after using BiPAP. Thank you! Performed By: #### L [id number] ####Patrol Conductor: UNA ARCE ([id number])[facility] ([facility])[address] PH ARTERIAL 7.426 Normal 7.350-7.450 [facility] Comment on above: Order Comment: Pleas e draw tomorrow AM after using BiPAP. Thank you! Performed By: #### L [id number] ####Patrol Conductor: UNA ARCE ([id number])[facility] ([facility])[address] PO2 ARTERIAL 79.2 mm Hg Low 83.0-108.0 [facility] Comment on above: Order Comment: Pleas e draw tomorrow AM after using BiPAP. Thank you! Performed By: #### L [id number] ####Patrol Conductor: UNA ARCE ([id number])[facility] SOURCE OF OXYGEN Nasal Cannula (LPM) Normal [facility] Comment on above: Order Comment: Pleas e draw tomorrow AM after using BiPAP. Thank you! Performed By: #### L [id number] ####Patrol Conductor: UNA ARCE ([id number])[facility] [place] [address] Bacteria identified Aer cx N om (Unsp spec)on 04-13-2025 Gram Stain Result Rare Polymorphonuclear leukocytes per low power field [facility] Gram Stain Result No organisms seen [facility] Bacteria identified Aer cx N om (Unsp spec)Ordered By: Bianca Daigle on 04-13-2025 Gram Stain Result Moderate Polymorphonuclear leukocytes per low power field [facility] Gram Stain Result No organisms seen [facility] CBC W Auto Differential pane l (Bld)on 04-13-2025 Erythrocyte distribution width (RBC) [Ratio] 25 % High 11.5 - 15.0 % [facility] Hematocrit (Bld) [Volume fraction] 28.2 % Low 40.0 - 52.0 % [facility] Hemoglobin (Bld) [Mass/Vol] 7.8 g/dL Low 13.0 - 18.0 g/dL [facility] Interpretation and review of laboratory results Abnormal [facility] MCH (RBC) [Entitic mass] 23.2 pg Low 26. 0 - 34.0 pg [facility] MCHC (RBC) [Mass/Vol] 27.7 % Low 30.5 - 36.0 % [facility] MCV (RBC) [Entitic vol] 83.9 fL 77.0 - 99.0 fL [facility] Platelet mean volume (Bld) [Entitic vol] 9.1 fL 9.0 - 12.7 fL [facility] Platelets (Bld) [#/Vol] 276 10*3/uL 140 - 440 10*3/uL [facility] RBC (Bld) [#/Vol] 3.36 10*6/uL Low 4.40 - 5.9 0 10*6/uL [facility] WBC (Bld) [#/Vol] 12.7 10*3/uL High 3.6 - 10.7 10*3/uL [facility] CBC WITH AUTO DIFFERENTIALon 04-13-2025 Erythrocyte distribution width (RBC) [Ratio] 25.0 % High 11.5-15.0 [facility] Comment on above: Performed By: #### L [id number], [id number] ####Patrol Conductor: UNA ARCE ([id number])[facility] ([facility])[address] [place] [address] Hematocrit (Bld) [Volume fraction] 28.2 % Low 40.0-52.0 [facility] Comment on above: Performed By: #### L [id number], [id number] ####Patrol Conductor: UNA ARCE ([id number])[facility] Hemoglobin (Bld) [Mass/Vol] 7.8 g/dL Low 13.0-18.0 [facility] Comment on above: Performed By: #### L [id number], [id number] ####Patrol Conductor: UNA ARCE ([id number])[facility] MCH (RBC) [Entitic mass] 23.2 pg Low 26.0-34.0 [facility] Comment on above: Performed By: #### L [id number], [id number] ####Patrol Conductor: UNA ARCE ([phone])[facility] MCKAYN ([facility])[address] MCHC 27.7 % Low 30.5-36.0 [facility] Comment on above: Performed By: #### L [id number], [id number] ####Patrol Conductor: UNA ARCE ([id number])[facility] [place] ([facility])[address] MCV (RBC) [Entitic vol] 83.9 fL Normal 77.0-99.0 [facility] Comment on above: Performed By: #### L [id number], [id number] ####Patrol Conductor: UNA ARCE ([phone])[facility] [place] ([facility])[address] Platelet mean volume (Bld) [Entitic vol] 9.1 fL Normal 9.0-12.7 [facility] Comment on above: Performed By: #### L [id number], [id number] ####Patrol Conductor: UNA ARCE ([id number])[facility] [place] ([facility])[address] Platelets (Bld) [#/Vol] 276 10*3/uL Normal 140-440 [facility] Comment on above: Performed By: #### L [id number], [id number] ####Patrol Conductor: UNA ARCE ([id number])[facility] [place] ([facility])[address] RBC (Bld) [#/Vol] 3.36 10*6/uL Low 4.40-5.90 [facility] Comment on above: Performed By: #### L [id number], [id number] ####Patrol Conductor: UNA ARCE ([id number])[facility] [place] ([facility])[address] WBC (Bld) [#/Vol] 12.7 10*3/uL High 3.6-10.7 [facility] Comment on above: Performed By: #### L [id number], [id number] ####Patrol Conductor: UNA ARCE ([phone])[facility] [place] ([facility])[address] COMPREHENSIVE METABOLIC PANE Anant 04-13-2025 Albumin [Mass/Vol] 2.2 g/dL Low 3.4-4.8 [facility] Comment on above: Performed By: #### L AB103, [id number], LAB17 ####Patrol Conductor: UNA ARCE ([id number])[facility] [place] ([facility])[address] ALP [Catalytic activity/Vol] 52 U/L Normal 40-150 [facility] Comment on above: Performed By: #### L AB103, [id number], LAB17 ####Patrol Conductor: UNA ARCE ([id number])[facility] [place] ([facility])[address] ALT [Catalytic activity/Vol] U/L Normal <40 [facility] Comment on above: Performed By: #### L AB103, [id number], LAB17 ####Patrol Conductor: UNA ARCE ([phone])[facility] SANCHEZCHRISTINAN ([facility])[address] Anion gap [Moles/Vol] 10 mmol/L Normal 3-13 [facility] Comment on above: Performed By: #### L AB103, [id number], LAB17 ####Patrol Conductor: UNA ARCE ([phone])[facility] BARB[place]RISTIN[place] ([facility])[address] AST [Catalytic activity/Vol] 25 U/L Normal <34 [facility] Comment on above: Performed By: #### L AB103, [id number], LAB17 ####Patrol Conductor: UNA ARCE ([id number])[facility] [place] ([facility])[address] Bilirubin [Mass/Vol] 0.6 mg/dL Normal <1.2 [facility] Comment on above: Performed By: #### L AB103, [id number], LAB17 ####Patrol Conductor: UNA ARCE ([phone])[facility] BASHIRN ([facility])[address] Calcium [Mass/Vol] 8.1 mg/dL Low 8.8-10.0 [facility] Comment on above: Performed By: #### L AB103, [id number], LAB17 ####Patrol Conductor: UNA ARCE ([phone])[facility] BASHIRN ([facility])[address] Chloride [Moles/Vol] 93 mmol/L Low 98-107 [facility] Comment on above: Performed By: #### L AB103, [id number], LAB17 ####Patrol Conductor: UNA ARCE ([phone])[facility] BASHIRN ([facility])[address] CO2 [Moles/Vol] 36 mmol/L High 23-31 [facility] Comment on above: Performed By: #### L AB103, [id number], LAB17 ####Patrol Conductor: UNA ARCE ([id number])[facility] BASHIRN ([facility])[address] Creatinine [Mass/Vol] 1.46 mg/dL High 0.72-1.25 [facility] Comment on above: Performed By: #### L AB103, [id number], LAB17 ####Patrol Conductor: UNA ARCE ([phone])[facility] BASHIRN ([facility])[address] GLOMERULAR FILTRATION RATE ML/MIN/1.73 SQ M.PREDICTED 45.7 mL/min/1.73m*2 Low >60.0 [facility] Comment on above: Result Comment: Calc ulation based on the Chronic Kidney Disease Epidemiology Collaboration (CKD-EPI) equation refit without adjustment for race Performed By: #### L AB103, [id number], LAB17 ####Patrol Conductor: UNA ARCE ([id number])[facility] [place] ([facility])[address] Glucose [Mass/Vol] 94 mg/dL Normal 82-115 [facility] Comment on above: Performed By: #### L AB103, [id number], LAB17 ####Patrol Conductor: UNA ARCE ([phone])[facility] ([facility])[address] Potassium [Moles/Vol] 3.4 mmol/L Low 3.5-5.1 [facility] Comment on above: Result Comment: [facility] potassium values may be up to 0.5 mmol/L lower than serum values. Performed By: #### L AB103, [id number], LAB17 ####Patrol Conductor: UNA ARCE ([phone])[facility] ([facility])[address] Protein [Mass/Vol] 5.8 g/dL Low 6.4-8.3 [facility] Comment on above: Performed By: #### L AB103, [id number], LAB17 ####Patrol Conductor: UNA ARCE ([id number])[facility] ([facility])[address] [place] [address] [place] Sodium [Moles/Vol] 139 mmol/L Normal 136-145 [facility] Comment on above: Performed By: #### L AB103, [id number], LAB17 ####Patrol Conductor: UNA ARCE ([phone])[facility] ([facility])[address] [place] [address] [place] Urea nitrogen [Mass/Vol] 37 mg/dL High 9-23 [facility] Comment on above: Performed By: #### L AB103, YRE975, LAB17 ####Patrol Conductor: UNA ARCE ([phone])[facility] ([facility])[address] [place] [id number] [facility] Comprehensive metabolic 1998 panelon 04-13-2025 Albumin [Mass/Vol] 2.2 g/dL Low 3.4 - 4.8 g/dL [facility] ALP [Catalytic activity/Vol] 52 U/L 40 - 150 U/L [facility] ALT [Catalytic activity/Vol] U/L NINF - 40 U/L [facility] Anion gap [Moles/Vol] 10 mmol/L 3 - 13 mmol/L [facility] AST [Catalytic activity/Vol] 25 U/L NINF - 34 U/L [facility] Bilirubin [Mass/Vol] 0.6 mg/dL NINF - 1.2 mg/dL [facility] Calcium [Mass/Vol] 8.1 mg/dL Low 8.8 - 10. 0 mg/dL [facility] Chloride [Moles/Vol] 93 mmol/L Low 98 - 10 7 mmol/L [facility] CO2 [Moles/Vol] 36 mmol/L High 23 - 31 mmol/L [facility] Creatinine [Mass/Vol] 1.46 mg/dL High 0.72 - 1.25 mg/dL [facility] GFR/1.73 sq M.predicted (S/P/Bld) [Vol rate/Area] 45.7 mL/min Low - PINF [facility] Glucose [Mass/Vol] 94 mg/dL 82 - 115 mg/dL [facility] Interpretation and review of laboratory results Abnormal [facility] Potassium [Moles/Vol] 3.4 mmol/L Low 3.5 - 5.1 mmol/L [facility] Protein [Mass/Vol] 5.8 g/dL Low 6.4 - 8.3 g/dL [facility] Sodium [Moles/Vol] 139 mmol/L 136 - 145 mmol/L [facility] Urea nitrogen [Mass/Vol] 37 mg/dL High 9 - 23 mg/d L [facility] Laboratory - Chemistry and C hemistry - challengeon 04-13-2025 Base excess Calc (Bld) [Moles/Vol] 11.7 mmol/L High -3.0 - 3.0 mmol/L [facility] CO2 (Bld) [Partial pressure] 59.2 mm[Hg] High [facility] CO2 [Moles/Vol] 39.9 mmol/L High 22.0 - 28.0 mmol/L [facility] HCO3 (Bld) [Moles/Vol] 38.1 mmol/L High 21.0 - 27.0 mmol/L [facility] Oxygen (Bld) [Partial pressure] 79.2 mm[Hg] Low [facility] pH (Bld) 7.426 [pH] 7.350 - 7.450 [facility] Magnesium [Mass/Vol] 1.9 mg/dL 1.6 - 2 .6 mg/dL [facility] Laboratory - Hematology and Cell countson 04-13-2025 Hemoglobin (Bld) [Mass/Vol] 11.3 g/dL Low 13.5 - 17.5 g/dl [facility] Anisocytosis Ql (Bld) Moderate Abnormal (none) [facility] Eosinophils (Bld) [#/Vol] 0.3 10*3/uL 0.0 - 0.5 10*3/uL [facility] Eosinophils/100 WBC (Bld) 2 % 0 - 6 % [facility] Hypochromia Ql (Bld) Slight Abnormal (none) [facility] Lymphocytes (Bld) [#/Vol] 1.9 10*3/uL 1.0 - 4.3 10*3/uL [facility] Lymphocytes/100 WBC (Bld) 15 % 15 - 45 % [facility] Monocytes (Bld) [#/Vol] 0.9 10*3/uL 0.0 - 0.9 10*3/uL [facility] Monocytes/100 WBC (Bld) 7 % 5 - 13 % [facility] Myelocytes (Bld) [#/Vol] 0.1 10*3/uL High SELENE F - 0.0 10*3/uL [facility] Myelocytes/100 WBC (Bld) 1 % High NINF - 0 % [facility] Neutrophils (Bld) [#/Vol] 9.7 10*3/uL High 1.8 - 7.5 10*3/uL [facility] Poikilocytosis LM Ql (Bld) Slight Abnormal (none) [facility] RBC morphology finding Nom (Bld) abnormal [facility] Segmented neutrophils/100 WBC (Bld) 76 % 38 - 82 % [facility] Stomatocytes LM Ql (Bld) Slight Abnormal (none) [facility] Laboratory - Microbiology an d Antimicrobial susceptibilityon 04-13-2025 Bacteria identified Aer cx Nom (Unsp spec) No growth at 4 days [facility] Laboratory - Microbiology an d Antimicrobial susceptibilityOrdered By: Bianca Brody Daigle on 04-13-2025 Bacteria identified Aer cx Nom (Unsp spec) No growth at 4 days [facility] MAGNESIUMon 04-13-2025 Magnesium [Mass/Vol] 1.9 mg/dL Normal 1.6-2.6 [facility] Comment on above: Result Comment: YARELI R COMMENTS:Higher values can be expected in females during menses. Performed By: #### L AB103, PST200, LAB17 ####Patrol Conductor: UNA ARCE ([phone])[facility] [place] ([facility])[address] MANUAL DIFFERENTIAL (CELLAVI BANDAR)on 04-13-2025 ANISOCYTOSIS PRESENCE IN BLOOD BY LIGHT MICROSCOPY Moderate Abnormal (none) [facility] Comment on above: Performed By: #### L [id number], [id number] ####Patrol Conductor: UNA ARCE ([id number])[facility] [place] ([facility])[address] BAND NEUTROPHILS TOTAL PER COUNTED LEUKOCYTES BY MANUAL COUNT [facility] Comment on above: Performed By: #### L YS4545, [id number] ####Patrol Conductor: UNA ARCE ([id number])[facility] [place] ([facility])[address] BASOPHILS TOTAL PER COUNTED LEUKOCYTES BY MANUAL COUNT [facility] Comment on above: Performed By: #### L [id number], [id number] ####Patrol Conductor: UNA ARCE ([phone])[facility] [place] ([facility])[address] BLASTS TOTAL PER COUNTED LEUKOCYTES BY MANUAL COUNT [facility] Comment on above: Performed By: #### L [id number], [id number] ####Patrol Conductor: UNA ARCE ([phone])[facility] [place] ([facility])[address] [place] [address] [place] EOSINOPHILS (10*3/UL) IN BLOOD-CELLAVISION 0.3 10*3/uL Normal 0.0-0.5 [facility] Comment on above: Performed By: #### L OD3237, [id number] ####Patrol Conductor: UNA ARCE ([id number])[facility] ([facility])[address] EOSINOPHILS TOTAL PER COUNTED LEUKOCYTES BY MANUAL COUNT 2 High 0-1 [facility] Comment on above: Performed By: #### L [id number], [id number] ####Patrol Conductor: UNA ARCE ([id number])[facility] ([facility])[address] EOSINOPHILS/100 LEUKOCYTES IN BLOOD-CELLAVISION 2 % Normal 0-6 [facility] Comment on above: Performed By: #### L [id number], [id number] ####Patrol Conductor: UNA ARCE ([id number])[facility] ([facility])[address] HYPOCHROMIA (PRESENCE) IN BLOOD BY LIGHT MICROSCOPY Slight Abnormal (none) [facility] Comment on above: Performed By: #### L [id number], [id number] ####Patrol Conductor: UNA ARCE ([phone])[facility] [place] ([facility])[address] [place] [address] [place] LYMPHOCYTES (10*3/UL) IN BLOOD-CELLAVISION 1.9 10*3/uL Normal 1.0-4.3 [facility] Comment on above: Performed By: #### L [id number], [id number] ####Patrol Conductor: UNA ARCE ([id number])[facility] ([facility])[address] LYMPHOCYTES TOTAL PER COUNTED LEUKOCYTES BY MANUAL COUNT 15 Normal [facility] Comment on above: Performed By: #### L [id number], [id number] ####Patrol Conductor: UNA ARCE ([id number])[facility] [place] ([facility])[address] [place] [address] [place] LYMPHOCYTES/100 LEUKOCYTES IN BLOOD-CELLAVISION 15 % Normal 15-45 [facility] Comment on above: Performed By: #### L [id number], [id number] ####Patrol Conductor: UNA ONURCER ([id number])[facility] [place] ([facility])[address] [place] [address] [place] METAMYELOCYTES TOTAL PER COUNTED LEUKOCYTES BY MANUAL COUNT Normal [facility] Comment on above: Performed By: #### L [id number], [id number] ####Patrol Conductor: UNA BERMUDEZPEDRO ([id number])[facility] [place] ([facility])[address] [place] [address] [place] MONOCYTES (10*3/UL) IN BLOOD-CELLAVISION 0.9 10*3/uL Normal 0.0-0.9 [facility] Comment on above: Performed By: #### L [id number], [id number] ####Patrol Conductor: UNA BERMUDEZPEDRO ([phone])[facility] [place] ([facility])[address] [place] [address] [place] MONOCYTES TOTAL PER COUNTED LEUKOCYTES BY MANUAL COUNT 7 Normal [facility] Comment on above: Performed By: #### L [id number], [id number] ####Patrol Conductor: UNA BERMUDEZPEDRO ([id number])[facility] [place] ([facility])[address] [place] [address] [place] MONOCYTES/100 LEUKOCYTES IN BLOOD-LUCIANA 7 % Normal 5-13 [facility] Comment on above: Performed By: #### L [id number], [id number] ####Patrol Conductor: UNA BERMUDEZPEDRO ([id number])[facility] [place] ([facility])[address] [place] [address] [place] MYELOCYTES (10*3/UL) IN BLOOD-CELLAVISION 0.1 10*3/uL High <=0.0 [facility] Comment on above: Performed By: #### L [id number], [id number] ####Patrol Conductor: UNA ARCE ([id number])[facility] [place] ([facility])[address] [place] [address] [place] MYELOCYTES COUNTED BY MANUAL COUNT 1 Normal [facility] Comment on above: Performed By: #### L [id number], [id number] ####Patrol Conductor: UNA ARCE ([id number])[facility] [place] ([facility])[address] [place] [address] [place] MYELOCYTES/100 LEUKOCYTES IN BLOOD-CELLAVISION 1 % High <=0 [facility] Comment on above: Performed By: #### L [id number], [id number] ####Patrol Conductor: UNA ARCE ([id number])[facility] [place] ([facility])[address] NEUTROPHILS TOTAL PER COUNTED LEUKOCYTES BY MANUAL COUNT 77 Normal [facility] Comment on above: Performed By: #### L [id number], [id number] ####Patrol Conductor: UNA ARCE ([id number])[facility] [place] ([facility])[address] [place] [address] [place] POIKILOCYTOSIS (PRESENCE) IN BLOOD BY LIGHT MICROSCOPY Slight Abnormal (none) [facility] Comment on above: Performed By: #### L [id number], [id number] ####Patrol Conductor: UNA ARCE ([id number])[facility] [place] ([facility])[address] [place] [address] [place] PROMYELOCYTES TOTAL PER COUNTED LEUKOCYTES BY MANUAL COUNT [facility] Comment on above: Performed By: #### L [id number], [id number] ####Patrol Conductor: UNA ARCE ([id number])[facility] [place] ([facility])[address] [place] [address] [place] RBC MORPHOLOGY IN BLOOD abnormal Normal [facility] Comment on above: Performed By: #### L IH0496, [id number] ####Patrol Conductor: UNA ARCE ([id number])[facility] [place] ([facility])[address] SEGMENTED NEUTROPHILS (10*3/UL) IN BLOOD-CELLAVISION 9.7 10*3/uL High 1.8-7.5 [facility] Comment on above: Performed By: #### L [id number], [id number] ####Patrol Conductor: UNA ARCE ([id number])[facility] ([facility])[address] SEGMENTED NEUTROPHILS/100 LEUKOCYTES-CE 76 % Normal 38-82 [facility] Comment on above: Performed By: #### L [id number], [id number] ####Patrol Conductor: UNA ARCE ([id number])[facility] ([facility])[address] STOMATOCYTES IN BLOOD BY LIGHT MICROSCOPY Slight Abnormal (none) [facility] Comment on above: Performed By: #### L ZQ8241, [id number] ####Patrol Conductor: UNA ARCE ([id number])[facility] ([facility])[address] UNCLASSIFIED CELLS TOTAL PER COUNTED LEUKOCYTES BY MANUAL COUNT Normal [facility] Comment on above: Performed By: #### L [id number], [id number] ####Patrol Conductor: UNA ARCE ([id number])[facility] ([facility])[address] VARIANT LYMPHOCYTES TOTAL PER COUNTED LEUKOCYTES BY MANUAL COUNT Normal [facility] Comment on above: Performed By: #### L [id number], [id number] ####Patrol Conductor: UNA ARCE ([id number])[facility] ([facility])[address] Magnesium [Mass/Vol]on 04-13 [facility] No Panel Informationon 04-13 Amount Of Oxygen 2 lpm [facility] Interpretation and review of laboratory results Abnormal [facility] Source Of Oxygen Nasal Cannula (LPM) [facility] Interpretation and review of laboratory results Normal [facility] Eosinophils Manual 2 High 0 - 1 [facility] Interpretation and review of laboratory results Abnormal [facility] Lymphocytes Manual 15 [facility] Monocytes Manual 7 [facility] alth Myelocytes Manual 1 [facility] ealt Neutrophils Manual 77 [facility] PHOSPHORUSon 04-13-2025 Phosphate [Mass/Vol] 2.9 mg/dL Normal 2.3-4.7 [facility] Comment on above: Performed By: #### L AB103, [id number], LAB17 ####Patrol Conductor: UNA ARCE ([id number])[facility] ([facility])[address] [place] [address] Phosphate [Moles/Vol]on Phosphate [Mass/Vol] 2.9 mg/dL 2.3 - 4 .7 mg/dL [facility] Progress Noteon 04-13-2025 Progress [facility] Progress [facility] Normal [facility] Progress Note [facility] Progress [facility] XR Chest Single viewon 04-13 Radiology Study observation (narrative) [facility]th [id number] 04-12-2025 [id number] Normal [facility] [id number] Normal [facility] CBC W Auto Differential pane l (Bld)on 04-12-2025 Erythrocyte distribution width (RBC) [Ratio] 24.3 % High 11.5 - 15.0 % [facility] Hematocrit (Bld) [Volume fraction] 26.8 % Low 40.0 - 52.0 % [facility] Hemoglobin (Bld) [Mass/Vol] 7.4 g/dL Low 13.0 - 18.0 g/dL [facility] MCH (RBC) [Entitic mass] 23.1 pg Low 26. 0 - 34.0 pg [facility] MCHC (RBC) [Mass/Vol] 27.6 % Low 30.5 - 36.0 % [facility] MCV (RBC) [Entitic vol] 83.8 fL 77.0 - 99.0 fL [facility] Platelet mean volume (Bld) [Entitic vol] 9.3 fL 9.0 - 12.7 fL [facility] Platelets (Bld) [#/Vol] 272 10*3/uL 140 - 440 10*3/uL [facility] RBC (Bld) [#/Vol] 3.2 10*6/uL Low 4.40 - 5.9 0 10*6/uL [facility] WBC (Bld) [#/Vol] 12 10*3/uL High 3.6 - 10.7 10*3/uL [facility] CBC WITH AUTO DIFFERENTIALon 04-12-2025 Erythrocyte distribution width (RBC) [Ratio] 24.3 % High 11.5-15.0 [facility] Comment on above: Performed By: #### L [id number], [id number] ####Patrol Conductor: UNA ARCE ([id number])[facility] (SB[facility])[address] [place] [address] Hematocrit (Bld) [Volume fraction] 26.8 % Low 40.0-52.0 [facility] Comment on above: Performed By: #### L [id number], [id number] ####Patrol Conductor: UNA ARCE ([id number])[facility] (SB[facility])[address] [place] [address] Hemoglobin (Bld) [Mass/Vol] 7.4 g/dL Low 13.0-18.0 [facility] Comment on above: Performed By: #### L [id number], [id number] ####Patrol Conductor: UNA ARCE ([id number])[facility] ([facility])[address] [place] [address] MCH (RBC) [Entitic mass] 23.1 pg Low 26.0-34.0 [facility] Comment on above: Performed By: #### L [id number], [id number] ####Patrol Conductor: UNA ARCE ([id number])[facility] ([facility])[address] [place] [address] MCHC 27.6 % Low 30.5-36.0 [facility] Comment on above: Performed By: #### L [id number], [id number] ####Patrol Conductor: UNA ARCE ([id number])[facility] [place] ([facility])[address] MCV (RBC) [Entitic vol] 83.8 fL Normal 77.0-99.0 [facility] Comment on above: Performed By: #### L [id number], [id number] ####Patrol Conductor: UNA ARCE ([id number])[facility] [place] ([facility])[address] Platelet mean volume (Bld) [Entitic vol] 9.3 fL Normal 9.0-12.7 [facility] Comment on above: Performed By: #### L [id number], [id number] ####Patrol Conductor: UNA ARCE ([id number])[facility] [place] ([facility])[address] Platelets (Bld) [#/Vol] 272 10*3/uL Normal 140-440 [facility] Comment on above: Performed By: #### L [id number], [id number] ####Patrol Conductor: UNA ARCE ([id number])[facility] [place] ([facility])[address] RBC (Bld) [#/Vol] 3.20 10*6/uL Low 4.40-5.90 [facility] Comment on above: Performed By: #### L [id number], [id number] ####Patrol Conductor: UNA ARCE ([id number])[facility] [place] ([place])[address] WBC (Bld) [#/Vol] 12.0 10*3/uL High 3.6-10.7 [facility] Comment on above: Performed By: #### L [id number], [id number] ####Patrol Conductor: UNA ARCE ([id number])[facility] [place] ([place])[address] COMPREHENSIVE METABOLIC PANE Anant 04-12-2025 Albumin [Mass/Vol] 2.2 g/dL Low 3.4-4.8 [facility] Comment on above: Performed By: #### L AB103, [id number], LAB17 ####Patrol Conductor: UNA ARCE ([phone])[facility] [place] ([facility])[address] ALP [Catalytic activity/Vol] 49 U/L Normal 40-150 [facility] Comment on above: Performed By: #### L AB103, [id number], LAB17 ####Patrol Conductor: UNA ARCE ([id number])[facility] ([facility] ALT [Catalytic activity/Vol] U/L Normal <40 [facility] Comment on above: Performed By: #### L AB103, [id number], LAB17 ####Patrol Conductor: UNA ARCE ([phone])[facility] ([facility])[address] Anion gap [Moles/Vol] 7 mmol/L Normal 3-13 [facility] Comment on above: Performed By: #### L AB103, [id number], LAB17 ####Patrol Conductor: UNA ARCE ([phone])[facility] ([facility] AST [Catalytic activity/Vol] 19 U/L Normal <34 [facility] Comment on above: Performed By: #### L AB103, USY155, LAB17 ####Patrol Conductor: UNA ARCE ([id number])[facility] ([facility])[address] Bilirubin [Mass/Vol] 0.6 mg/dL Normal <1.2 [facility] Comment on above: Performed By: #### L AB103, ZWD137, LAB17 ####Patrol Conductor: UNA ARCE ([phone])[facility] ([facility])[address] Calcium [Mass/Vol] 7.9 mg/dL Low 8.8-10.0 [facility] Comment on above: Performed By: #### L AB103, [id number], LAB17 ####Patrol Conductor: UNA ARCE ([id number])[facility] [place] ([place])[address] Chloride [Moles/Vol] 95 mmol/L Low 98-107 [facility] Comment on above: Performed By: #### L AB103, [id number], LAB17 ####Patrol Conductor: UNA ARCE ([phone])[facility] ([facility])[address] CO2 [Moles/Vol] 37 mmol/L High 23-31 [facility] Comment on above: Performed By: #### L ABLilly, [id number], LAB17 ####Patrol Conductor: UNA ARCE ([phone])[facility] [place] (SBHLAB)[address] Creatinine [Mass/Vol] 1.53 mg/dL High 0.72-1.25 [facility] Comment on above: Performed By: #### L AB103, KJB075, LAB17 ####Patrol Conductor: UNA ARCE ([phone])[facility] ([place])[address] GLOMERULAR FILTRATION RATE ML/MIN/1.73 SQ M.PREDICTED 43.2 mL/min/1.73m*2 Low >60.0 [facility] Comment on above: Result Comment: Calc ulation based on the Chronic Kidney Disease Epidemiology Collaboration (CKD-EPI) equation refit without adjustment for race Performed By: #### L AB103, [id number], LAB17 ####Patrol Conductor: UNA ARCE ([phone])[facility] ([facility])[address] Glucose [Mass/Vol] 103 mg/dL Normal 82-115 [facility] Comment on above: Performed By: #### L AB103, VPK737, LAB17 ####Patrol Conductor: UNA MOHRCER ([phone])[facility] ([facility])[address] Potassium [Moles/Vol] 3.7 mmol/L Normal 3.5-5.1 [facility] Comment on above: Result Comment: [facility] potassium values may be up to 0.5 mmol/L lower than serum values. Performed By: #### L AB103, HRB631, LAB17 ####Patrol Conductor: UNA ARCE ([phone])[facility] ([facility])[address] Protein [Mass/Vol] 5.6 g/dL Low 6.4-8.3 [facility] Comment on above: Performed By: #### L ABLilly, [id number], LAB17 ####Patrol Conductor: UNA ARCE ([phone])[facility] ([facility])[address] Sodium [Moles/Vol] 139 mmol/L Normal 136-145 [facility] Comment on above: Performed By: #### L ABLilly, [id number], LAB17 ####Patrol Conductor: UNA ARCE ([id number])[facility] ([facility])[address] Urea nitrogen [Mass/Vol] 40 mg/dL High 9-23 [facility] Comment on above: Performed By: #### L AB103, [id number], LAB17 ####Patrol Conductor: UNA ARCE ([phone])[facility] ([facility])[address] Comprehensive metabolic 1998 panelon 04-12-2025 Albumin [Mass/Vol] 2.2 g/dL Low 3.4 - 4.8 g/dL [facility] ALP [Catalytic activity/Vol] 49 U/L 40 - 150 U/L [facility] ALT [Catalytic activity/Vol] U/L NINF - 40 U/L [facility] Anion gap [Moles/Vol] 7 mmol/L 3 - 13 mmol/L [facility] AST [Catalytic activity/Vol] 19 U/L NINF - 34 U/L [facility] Bilirubin [Mass/Vol] 0.6 mg/dL NINF - 1.2 mg/dL [facility] Calcium [Mass/Vol] 7.9 mg/dL Low 8.8 - 10. 0 mg/dL [facility] Chloride [Moles/Vol] 95 mmol/L Low 98 - 10 7 mmol/L [facility] CO2 [Moles/Vol] 37 mmol/L High 23 - 31 mmol/L [facility] Creatinine [Mass/Vol] 1.53 mg/dL High 0.72 - 1.25 mg/dL [facility] GFR/1.73 sq M.predicted (S/P/Bld) [Vol rate/Area] 43.2 mL/min Low - PINF [facility] Glucose [Mass/Vol] 103 mg/dL 82 - 115 mg/dL [facility] Interpretation and review of laboratory results Abnormal [facility] Potassium [Moles/Vol] 3.7 mmol/L 3.5 - 5.1 mmol/L [facility] Protein [Mass/Vol] 5.6 g/dL Low 6.4 - 8.3 g/dL [facility] Sodium [Moles/Vol] 139 mmol/L 136 - 145 mmol/L [facility] Urea nitrogen [Mass/Vol] 40 mg/dL High 9 - 23 mg/d L [facility] Consulton 04-12-2025 Consult Normal [facility] - Chemistry and C hemistry - challengeon 04-12-2025 Magnesium [Mass/Vol] 2.2 mg/dL 1.6 - 2 .6 mg/dL [facility] Laboratory - Hematology and Cell countson 04-12-2025 Anisocytosis Ql (Bld) Slight Abnormal (none) [facility] Band form neutrophils (Bld) [#/Vol] 0.1 10*3/uL High NINF - 0.0 10*3/uL [facility] Band form neutrophils/100 WBC (Bld) 1 % High NINF - 0 % [facility] Eosinophils (Bld) [#/Vol] 0.8 10*3/uL High 0.0 - 0.5 10*3/uL [facility] Eosinophils/100 WBC (Bld) 7 % High 0 - 6 % [facility] Lymphocytes (Bld) [#/Vol] 0.7 10*3/uL Low 1.0 - 4.3 10*3/uL [facility] Lymphocytes/100 WBC (Bld) 6 % Low 15 - 45 % [facility] Monocytes (Bld) [#/Vol] 0.5 10*3/uL 0.0 - 0.9 10*3/uL [facility] Monocytes/100 WBC (Bld) 4 % Low 5 - 13 % [facility] Neutrophils (Bld) [#/Vol] 9.8 10*3/uL High 1.8 - 7.5 10*3/uL [facility] RBC morphology finding Nom (Bld) abnormal [facility] Segmented neutrophils/100 WBC (Bld) 81 % 38 - 82 % [facility] MAGNESIUMon 04-12-2025 Magnesium [Mass/Vol] 2.2 mg/dL Normal 1.6-2.6 [facility] Comment on above: Result Comment: YARELI [place] COMMENTS:Higher values can be expected in females during menses. Performed By: #### L AB103, [id number], LAB17 ####Patrol Conductor: UNA ARCE ([phone])[facility] ([facility])[address] [place] [address] MANUAL DIFFERENTIAL (CELLAVI BANDAR)on 04-12-2025 ANISOCYTOSIS PRESENCE IN BLOOD BY LIGHT MICROSCOPY Slight Abnormal (none) [facility] Comment on above: Performed By: #### L [id number], [id number] ####Patrol Conductor: UNA ARCE ([phone])[facility] ([facility])[address] BAND NEUTROPHILS TOTAL PER COUNTED LEUKOCYTES BY MANUAL COUNT 1 Normal [facility] Comment on above: Performed By: #### L [id number], [id number] ####Patrol Conductor: UNA ARCE ([id number])[facility] ([facility])[address] BANDS (10*3/UL) IN BLOOD-CELLAVISION 0.1 10*3/uL High <=0.0 [facility] Comment on above: Performed By: #### L [id number], [id number] ####Patrol Conductor: UNA BERMUDEZPEDRO ([phone])[facility] [place] (SB[facility])[address] [place] [address] [place] BASOPHILS TOTAL PER COUNTED LEUKOCYTES BY MANUAL COUNT Normal [facility] Comment on above: Performed By: #### L [id number], [id number] ####Patrol Conductor: UNA BERMUDEZPEDRO ([id number])[facility] [place] ([facility])[address] [place] [address] [place] BLASTS TOTAL PER COUNTED LEUKOCYTES BY MANUAL COUNT Normal [facility] Comment on above: Performed By: #### L GW6224, [id number] ####Patrol Conductor: UNA YAZMIN ([phone])[facility] [place] ([place])[address] [place] [address] [place] EOSINOPHILS (10*3/UL) IN BLOOD-CELLAVISION 0.8 10*3/uL High 0.0-0.5 [facility] Comment on above: Performed By: #### L [id number], [id number] ####Patrol Conductor: UNA STAUFFERMELANIE ([id number])[facility] [place] ([place])[address] [place] [address] [place] EOSINOPHILS TOTAL PER COUNTED LEUKOCYTES BY MANUAL COUNT 7 High 0-1 [facility] Comment on above: Performed By: #### L [id number], [id number] ####Patrol Conductor: UNA BERMUDEZPEDRO ([id number])[facility] [place] ([place])[address] [place] [address] [place] EOSINOPHILS/100 LEUKOCYTES IN BLOOD-CELLAVISION 7 % High 0-6 [facility] Comment on above: Performed By: #### L [id number], [id number] ####Patrol Conductor: UNA BERMUDEZPEDRO ([phone])[facility] [place] ([place])[address] [place] [address] [place] LYMPHOCYTES (10*3/UL) IN BLOOD-CELLAVISION 0.7 10*3/uL Low 1.0-4.3 [facility] Comment on above: Performed By: #### L [id number], [id number] ####Patrol Conductor: UNA ARCE ([id number])[facility] [place] (SBHLAB)[address] [place] [address] [place] LYMPHOCYTES TOTAL PER COUNTED LEUKOCYTES BY MANUAL COUNT 6 Normal [facility] Comment on above: Performed By: #### L TG2758, [id number] ####Patrol Conductor: UNA ARCE ([id number])[facility] [place] (SB[place])[address] [place] [address] [place] LYMPHOCYTES/100 LEUKOCYTES IN BLOOD-CELLAVISION 6 % Low 15-45 [facility] Comment on above: Performed By: #### L EY8540, [id number] ####Patrol Conductor: UNA ARCE ([id number])[facility] [place] ([facility])[address] [place] [address] [place] METAMYELOCYTES TOTAL PER COUNTED LEUKOCYTES BY MANUAL COUNT [facility] Comment on above: Performed By: #### L [id number], [id number] ####Patrol Conductor: UNA ARCE ([id number])[facility] [place] ([place])[address] [place] [address] [place] MONOCYTES (10*3/UL) IN BLOOD-CELLAVISION 0.5 10*3/uL Normal 0.0-0.9 [facility] Comment on above: Performed By: #### L [id number], [id number] ####Patrol Conductor: UNA ARCE ([phone])[facility] [place] ([facility])[address] [place] [address] [place] MONOCYTES TOTAL PER COUNTED LEUKOCYTES BY MANUAL COUNT 4 Normal [facility] Comment on above: Performed By: #### L [id number], [id number] ####Patrol Conductor: UNA ARCE ([id number])[facility] [place] ([facility])[address] [place] [address] [place] MONOCYTES/100 LEUKOCYTES IN BLOOD-LUCIANA 4 % Low 5-13 [facility] Comment on above: Performed By: #### L [id number], [id number] ####Patrol Conductor: UNA ARCE ([id number])[facility] [place] ([place])[address] MYELOCYTES COUNTED BY MANUAL COUNT [facility] Comment on above: Performed By: #### L [id number], [id number] ####Patrol Conductor: UNA ARCE ([phone])[facility] [place] ([place])[address] NEUTROPHILS BAND FORM/100 LEUKOCYTES IN BLOOD-CELLAVISI 1 % High <=0 [facility] Comment on above: Performed By: #### L [id number], [id number] ####Patrol Conductor: UNA ARCE ([id number])[facility] [place] ([place])[address] NEUTROPHILS TOTAL PER COUNTED LEUKOCYTES BY MANUAL COUNT 83 [facility] Comment on above: Performed By: #### L HL7303, [id number] ####Patrol Conductor: UNA ARCE ([id number])[facility] [place] ([place])[address] PROMYELOCYTES TOTAL PER COUNTED LEUKOCYTES BY MANUAL COUNT [facility] Comment on above: Performed By: #### L [id number], [id number] ####Patrol Conductor: UNA ARCE ([phone])[facility] [place] ([place])[address] RBC MORPHOLOGY IN BLOOD abnormal Normal [facility] Comment on above: Performed By: #### L [id number], [id number] ####Patrol Conductor: UNA ARCE ([id number])[facility] [place] ([place])[address] [place] [address] [place] SEGMENTED NEUTROPHILS (10*3/UL) IN BLOOD-CELLAVISION 9.8 10*3/uL High 1.8-7.5 [facility] Comment on above: Performed By: #### L [id number], [id number] ####Patrol Conductor: UNA ARCE ([id number])[facility] ([facility])[address] SEGMENTED NEUTROPHILS/100 LEUKOCYTES-CE 81 % Normal 38-82 [facility] Comment on above: Performed By: #### L [id number], [id number] ####Patrol Conductor: UNA ARCE ([phone])[facility] ([facility])[address] UNCLASSIFIED CELLS TOTAL PER COUNTED LEUKOCYTES BY MANUAL COUNT Normal [facility] Comment on above: Performed By: #### L [id number], [id number] ####Patrol Conductor: UNA ARCE ([id number])[facility] ([facility])[address] VARIANT LYMPHOCYTES TOTAL PER COUNTED LEUKOCYTES BY MANUAL COUNT Normal [facility] Comment on above: Performed By: #### L [id number], [id number] ####Patrol Conductor: UNA ARCE ([id number])[facility] Magnesium [Mass/Vol]on 04-12 [facility] No Panel Informationon 04-12 Bands Manual 1 [facility] Eosinophils Manual 7 High 0 - 1 [facility] Interpretation and review of laboratory results Abnormal [facility] Lymphocytes Manual 6 [facility] Monocytes Manual 4 [facility] Neutrophils Manual 83 [facility] Interpretation and review of laboratory results Normal [facility] PHOSPHORUSon 04-12-2025 Phosphate [Mass/Vol] 2.7 mg/dL Normal 2.3-4.7 [facility] Comment on above: Performed By: #### L AB103, [id number], LAB17 ####Patrol Conductor: UNA ARCE ([id number])[facility] ([facility])[address] [place] [address] [place] Phosphate [Moles/Vol]on Phosphate [Mass/Vol] 2.7 mg/dL 2.3 - 4 .7 mg/dL [facility] Progress Noteon 04-12-2025 Progress Note [facility] Normal [facility] Progress Note Normal [facility] Progress [facility] Normal [facility] CBC W Auto Differential pane l (Bld)on 04-11-2025 Erythrocyte distribution width (RBC) [Ratio] 24.2 % High 11.5 - 15.0 % [facility] Hematocrit (Bld) [Volume fraction] 28.9 % Low 40.0 - 52.0 % [facility] Hemoglobin (Bld) [Mass/Vol] 7.9 g/dL Low 13.0 - 18.0 g/dL [facility] Interpretation and review of laboratory results Abnormal [facility] MCH (RBC) [Entitic mass] 22.7 pg Low 26. 0 - 34.0 pg [facility] MCHC (RBC) [Mass/Vol] 27.3 % Low 30.5 - 36.0 % [facility] MCV (RBC) [Entitic vol] 83 fL 77.0 - 99.0 fL [facility] Platelet mean volume (Bld) [Entitic vol] 9.2 fL 9.0 - 12.7 fL [facility] Platelets (Bld) [#/Vol] 313 10*3/uL 140 - 440 10*3/uL [facility] RBC (Bld) [#/Vol] 3.48 10*6/uL Low 4.40 - 5.9 0 10*6/uL [facility] WBC (Bld) [#/Vol] 13.8 10*3/uL High 3.6 - 10.7 10*3/uL [facility] CBC WITH AUTO DIFFERENTIALon 04-11-2025 Erythrocyte distribution width (RBC) [Ratio] 24.2 % High 11.5-15.0 [facility] Comment on above: Performed By: #### L [id number], [id number] ####Patrol Conductor: UNA ARCE ([phone])[facility] [place] [address] Hematocrit (Bld) [Volume fraction] 28.9 % Low 40.0-52.0 [facility] Comment on above: Performed By: #### L [id number], [id number] ####Patrol Conductor: UNA ARCE ([id number])[facility]ITAL[facility] [place] ([place])[address] Hemoglobin (Bld) [Mass/Vol] 7.9 g/dL Low 13.0-18.0 [facility] Comment on above: Performed By: #### L [id number], [id number] ####Patrol Conductor: UNA ARCE ([id number])[facility]ITALAngel SANCHEZCIBOLA GENERAL HOSPITALMarisol ([place])[address] MCH (RBC) [Entitic mass] 22.7 pg Low 26.0-34.0 [facility] Comment on above: Performed By: #### L [id number], [id number] ####Patrol Conductor: UNA ARCE ([id number])[facility]ITAL[facility] ([facility])[address] MCHC 27.3 % Low 30.5-36.0 [facility] Comment on above: Performed By: #### L [id number], [id number] ####Patrol Conductor: UNA ARCE ([id number])[facility]ITAL[facility] ([place])[address] MCV (RBC) [Entitic vol] 83.0 fL Normal 77.0-99.0 [facility] Comment on above: Performed By: #### L [id number], [id number] ####Patrol Conductor: UNA ARCE ([id number])[facility]ITAL[facility] ([place])[address] Platelet mean volume (Bld) [Entitic vol] 9.2 fL Normal 9.0-12.7 [facility] Comment on above: Performed By: #### L [id number], [id number] ####Patrol Conductor: UNA ARCE ([phone])[facility]ITALAngel [facility]AB[facility] ([facility])[address] [place] [address] [place] Platelets (Bld) [#/Vol] 313 10*3/uL Normal 140-440 [facility] Comment on above: Performed By: #### L [id number], [id number] ####Patrol Conductor: UNA ARCE ([phone])[facility] ([facility])[address] RBC (Bld) [#/Vol] 3.48 10*6/uL Low 4.40-5.90 [facility] Comment on above: Performed By: #### L [id number], [id number] ####Patrol Conductor: UNA ARCE ([phone])[facility] ([facility])[address] WBC (Bld) [#/Vol] 13.8 10*3/uL High 3.6-10.7 [facility] Comment on above: Performed By: #### L [id number], [id number] ####Patrol Conductor: UNA ARCE ([id number])[facility] ([facility])[address] COMPREHENSIVE METABOLIC PANE Anant 04-11-2025 Albumin [Mass/Vol] 2.4 g/dL Low 3.4-4.8 [facility] Comment on above: Performed By: #### L AB103, [id number], LAB17 ####Patrol Conductor: UNA ARCE ([id number])[facility] ([facility])[address] ALP [Catalytic activity/Vol] 53 U/L Normal 40-150 [facility] Comment on above: Performed By: #### L AB103, BSD961, LAB17 ####Patrol Conductor: UNA ARCE ([id number])[facility] ([facility])[address] ALT [Catalytic activity/Vol] U/L Normal <40 [facility] Comment on above: Performed By: #### L AB103, [id number], LAB17 ####Patrol Conductor: UNA ARCE ([id number])[facility] ([facility])[address] Anion gap [Moles/Vol] 10 mmol/L Normal 3-13 [facility] Comment on above: Performed By: #### L AB103, KVK152, LAB17 ####Patrol Conductor: UNA ACRE ([id number])[facility]ITAL[facility] ESC[facility] ([facility])[address] AST [Catalytic activity/Vol] 18 U/L Normal <34 [facility] Comment on above: Performed By: #### L AB103, VYG741, LAB17 ####Patrol Conductor: UNA ARCE ([id number])[facility]ITAL[facility] ESCOTO ([facility])[address] Bilirubin [Mass/Vol] 0.7 mg/dL Normal <1.2 [facility] Comment on above: Performed By: #### L AB103, PVZ869, LAB17 ####Patrol Conductor: UNA ARCE ([phone])[facility]ITAL[facility] ESCOTO ([facility])[address] Calcium [Mass/Vol] 8.1 mg/dL Low 8.8-10.0 [facility] Comment on above: Performed By: #### L AB103, [id number], LAB17 ####Patrol Conductor: UNA ARCE ([id number])LYNETTE BASHIRN ([facility])[address] [place] [address] [place] Chloride [Moles/Vol] 94 mmol/L Low 98-107 [facility] Comment on above: Performed By: #### L AB103, [id number], LAB17 ####Patrol Conductor: UNA ARCE ([id number])[facility]ITALAngel BASHIRN ([facility])[address] CO2 [Moles/Vol] 35 mmol/L High 23-31 [facility] Comment on above: Performed By: #### L AB103, WEK006, LAB17 ####Patrol Conductor: UNA ARCE ([id number])[facility]ITALAngel [facility]ABRA[facility] ([facility])[address] Creatinine [Mass/Vol] 1.55 mg/dL High 0.72-1.25 [facility] Comment on above: Performed By: #### L AB103, QJM583, LAB17 ####Patrol Conductor: UNA ARCE ([id number])[facility] ([facility])[address] GLOMERULAR FILTRATION RATE ML/MIN/1.73 SQ M.PREDICTED 42.5 mL/min/1.73m*2 Low >60.0 [facility] Comment on above: Result Comment: Calc ulation based on the Chronic Kidney Disease Epidemiology Collaboration (CKD-EPI) equation refit without adjustment for race Performed By: #### L AB103, PNK347, LAB17 ####Patrol Conductor: UNA ARCE ([id number])[facility] Glucose [Mass/Vol] 103 mg/dL Normal 82-115 [facility] Comment on above: Performed By: #### L AB103, MIZ796, LAB17 ####Patrol Conductor: UNA ARCE ([id number])[facility] ([facility])[address] [place] [address] Potassium [Moles/Vol] 3.6 mmol/L Normal 3.5-5.1 [facility] Comment on above: Result Comment: [facility] potassium values may be up to 0.5 mmol/L lower than serum values. Performed By: #### L AB103, HCZ998, LAB17 ####Patrol Conductor: UNA ARCE ([phone])[facility] Protein [Mass/Vol] 6.1 g/dL Low 6.4-8.3 [facility] Comment on above: Performed By: #### L [id number], [id number], LAB17 ####Patrol Conductor: UNA ARCE ([id number])[facility])[address] Sodium [Moles/Vol] 139 mmol/L Normal 136-145 [facility] Comment on above: Performed By: #### L AB103, [id number], LAB17 ####Patrol Conductor: UNA ARCE ([id number])[facility] ([facility])[address] Urea nitrogen [Mass/Vol] 36 mg/dL High 9-23 [facility] Comment on above: Performed By: #### L AB103, [id number], LAB17 ####Patrol Conductor: UNA BERMUDEZPEDRO ([id number])[facility] ([facility])[address] Comprehensive metabolic 1998 panelon 04-11-2025 Albumin [Mass/Vol] 2.4 g/dL Low 3.4 - 4.8 g/dL [facility] ALP [Catalytic activity/Vol] 53 U/L 40 - 150 U/L [facility] ALT [Catalytic activity/Vol] U/L [facility] - 40 U/L [facility] Anion gap [Moles/Vol] 10 mmol/L 3 - 13 mmol/L [facility] AST [Catalytic activity/Vol] 18 U/L [facility] - 34 U/L [facility] Bilirubin [Mass/Vol] 0.7 mg/dL NINF - 1.2 mg/dL [facility] Calcium [Mass/Vol] 8.1 mg/dL Low 8.8 - 10. 0 mg/dL [facility] Chloride [Moles/Vol] 94 mmol/L Low 98 - 10 7 mmol/L [facility] CO2 [Moles/Vol] 35 mmol/L High 23 - 31 mmol/L [facility] Creatinine [Mass/Vol] 1.55 mg/dL High 0.72 - 1.25 mg/dL [facility] GFR/1.73 sq M.predicted (S/P/Bld) [Vol rate/Area] 42.5 mL/min Low - PINF [facility] Glucose [Mass/Vol] 103 mg/dL 82 - 115 mg/dL [facility] Interpretation and review of laboratory results Abnormal [facility] Potassium [Moles/Vol] 3.6 mmol/L 3.5 - 5.1 mmol/L [facility] Protein [Mass/Vol] 6.1 g/dL Low 6.4 - 8.3 g/dL [facility] Sodium [Moles/Vol] 139 mmol/L 136 - 145 mmol/L [facility] Urea nitrogen [Mass/Vol] 36 mg/dL High 9 - 23 mg/d L [facility] Laboratory - Chemistry and C hemistry - challengeon 04-11-2025 Magnesium [Mass/Vol] 1.7 mg/dL 1.6 - 2 .6 mg/dL [facility] Laboratory - Hematology and Cell countson 04-11-2025 Anisocytosis Ql (Bld) Moderate Abnormal (none) [facility] Basophilic stippling LM Ql (Bld) Slight Abnormal (none) [facility] Basophils (Bld) [#/Vol] 0.1 10*3/uL 0.0 - 0.2 10*3/uL [facility] Basophils/100 WBC (Bld) 1 % 0 - 2 % [facility] Dacrocytes LM Ql (Bld) Rare Abnormal (none) [facility] Eosinophils (Bld) [#/Vol] 0.1 10*3/uL 0.0 - 0.5 10*3/uL [facility] Eosinophils/100 WBC (Bld) 1 % 0 - 6 % [facility] Hypochromia Ql (Bld) Slight Abnormal (none) [facility] Lymphocytes (Bld) [#/Vol] 1.4 10*3/uL 1.0 - 4.3 10*3/uL [facility] Lymphocytes/100 WBC (Bld) 10 % Low 15 - 45 % [facility] Monocytes (Bld) [#/Vol] 1.8 10*3/uL High 0.0 - 0.9 10*3/uL [facility] Monocytes/100 WBC (Bld) 13 % 5 - 13 % [facility] Neutrophils (Bld) [#/Vol] 10.5 10*3/uL High 1.8 - 7.5 10*3/uL [facility] Ovalocytes LM Ql (Bld) Slight Abnormal (none) [facility] Poikilocytosis LM Ql (Bld) Slight Abnormal (none) [facility] Polychromasia LM Ql (Bld) Slight Abnormal (none) [facility] RBC morphology finding Nom (Bld) abnormal [facility] Segmented neutrophils/100 WBC (Bld) 76 % 38 - 82 % [facility] Stomatocytes LM Ql (Bld) Slight Abnormal (none) [facility] Target cells LM Ql (Bld) Slight Abnormal (none) [facility] MAGNESIUMon 04-11-2025 Magnesium [Mass/Vol] 1.7 mg/dL Normal 1.6-2.6 [facility] Comment on above: Result Comment: YARELI R COMMENTS:Higher values can be expected in females during menses. Performed By: #### L [id number], [id number], LAB17 ####Patrol Conductor: UNA ARCE ([phone])[facility] [place] ([facility])[address] MANUAL DIFFERENTIAL (CELLAVI BANDAR)on 04-11-2025 ANISOCYTOSIS PRESENCE IN BLOOD BY LIGHT MICROSCOPY Moderate Abnormal (none) [facility] Comment on above: Performed By: #### L [id number], [id number] ####Patrol Conductor: UNA ARCE ([phone])[facility] [place] (SB[facility])[address] BAND NEUTROPHILS TOTAL PER COUNTED LEUKOCYTES BY MANUAL COUNT Normal [facility] Comment on above: Performed By: #### L [id number], [id number] ####Patrol Conductor: UNA ARCE ([phone])[facility] [place] (SB[facility])[address] BASOPHILIC STIPPLING PRESENCE IN BLOOD BY LIGHT MICROSCOPY Slight Abnormal (none) [facility] Comment on above: Performed By: #### L [id number], [id number] ####Patrol Conductor: UNA ARCE ([phone])[facility] [place] (SBAB)[address] BASOPHILS (10*3/UL) IN BLOOD-CELLAVISION 0.1 10*3/uL Normal 0.0-0.2 [facility] Comment on above: Performed By: #### L [id number], [id number] ####Patrol Conductor: UNA [id number])[facility] [place] (SBHLAB)[address] [place] [address] [place] BASOPHILS TOTAL PER COUNTED LEUKOCYTES BY MANUAL COUNT 1 Normal [facility] Comment on above: Performed By: #### L [id number], [id number] ####Patrol Conductor: UNA ARCE ([phone])[facility] [place] ([facility])[address] [place] [address] [place] BASOPHILS/100 LEUKOCYTES IN BLOOD-CELLAVISION 1 % Normal 0-2 [facility] Comment on above: Performed By: #### L [id number], [id number] ####Patrol Conductor: UNA ARCE ([phone])[facility] [place] ([facility])[address] BLASTS TOTAL PER COUNTED LEUKOCYTES BY MANUAL COUNT Normal [facility] Comment on above: Performed By: #### L [id number], [id number] ####Patrol Conductor: UNA ARCE ([phone])[facility] [place] ([facility])[address] DACROCYTES PRESENCE IN BLOOD BY LIGHT MICROSCOPY Rare Abnormal (none) [facility] Comment on above: Performed By: #### L [id number], [id number] ####Patrol Conductor: UNA ARCE ([id number])[facility] ([facility] [place] [address] [place] EOSINOPHILS (10*3/UL) IN BLOOD-CELLAVISION 0.1 10*3/uL Normal 0.0-0.5 [facility] Comment on above: Performed By: #### L [id number], [id number] ####Patrol Conductor: UNA ARCE ([id number])[facility] [place] ([facility])[address] [place] [address] [place] EOSINOPHILS TOTAL PER COUNTED LEUKOCYTES BY MANUAL COUNT 1 Normal 0-1 [facility] Comment on above: Performed By: #### L [id number], [id number] ####Patrol Conductor: UNA ARCE ([phone])[facility] [place] (SBHLAB)[address] [place] [address] [place] EOSINOPHILS/100 LEUKOCYTES IN BLOOD-CELLAVISION 1 % Normal 0-6 [facility] Comment on above: Performed By: #### L [id number], [id number] ####Patrol Conductor: UNA ARCE ([phone])[facility] [place] (SBHLAB)[address] [place] [address] [place] HYPOCHROMIA (PRESENCE) IN BLOOD BY LIGHT MICROSCOPY Slight Abnormal (none) [facility] Comment on above: Performed By: #### L [id number], [id number] ####Patrol Conductor: UNA ARCE ([phone])[facility] [place] ([facility])[address] [place] [address] [place] LYMPHOCYTES (10*3/UL) IN BLOOD-CELLAVISION 1.4 10*3/uL Normal 1.0-4.3 [facility] Comment on above: Performed By: #### L [id number], [id number] ####Patrol Conductor: UNA ARCE ([phone])[facility] [place] ([facility])[address] [place] [address] [place] LYMPHOCYTES TOTAL PER COUNTED LEUKOCYTES BY MANUAL COUNT 10 Normal [facility] Comment on above: Performed By: #### L [id number], [id number] ####Patrol Conductor: UNA ARCE ([phone])[facility] [place] ([facility])[address] [place] [address] [place] LYMPHOCYTES/100 LEUKOCYTES IN BLOOD-CELLAVISION 10 % Low 15-45 [facility] Comment on above: Performed By: #### L [id number], [id number] ####Patrol Conductor: UNA ARCE ([id number])[facility] [place] ([facility])[address] [place] [address] [place] METAMYELOCYTES TOTAL PER COUNTED LEUKOCYTES BY MANUAL COUNT Normal [facility] Comment on above: Performed By: #### L [id number], [id number] ####Patrol Conductor: UNA ARCE ([phone])[facility] [place] (SBHLAB)[address] [place] [address] [place] MONOCYTES (10*3/UL) IN BLOOD-CELLAVISION 1.8 10*3/uL High 0.0-0.9 [facility] Comment on above: Performed By: #### L [id number], [id number] ####Patrol Conductor: UNA MOHRCER ([phone])[facility] [place] (SBHLAB)[address] MONOCYTES TOTAL PER COUNTED LEUKOCYTES BY MANUAL COUNT 13 Normal [facility] Comment on above: Performed By: #### L [id number], [id number] ####Patrol Conductor: UNA MOHRCER ([id number])[facility] [place] (SBHLAB)[address] [place] [address] [place] MONOCYTES/100 LEUKOCYTES IN BLOOD-LUCIANA 13 % Normal 5-13 [facility] Comment on above: Performed By: #### L [id number], [id number] ####Patrol Conductor: UNA ARCE ([phone])[facility] [place] ([facility])[address] [place] [address] [place] MYELOCYTES COUNTED BY MANUAL COUNT Normal [facility] Comment on above: Performed By: #### L [id number], [id number] ####Patrol Conductor: UNA ARCE ([phone])[facility] [place] ([facility])[address] [place] [address] [place] NEUTROPHILS TOTAL PER COUNTED LEUKOCYTES BY MANUAL COUNT 79 Normal [facility] Comment on above: Performed By: #### L [id number], [id number] ####Patrol Conductor: UNA ARCE ([id number])[facility] [place] (SBHLAB)[address] [place] [address] [place] OVALOCYTES PRESENCE IN BLOOD BY LIGHT MICROSCOPY Slight Abnormal (none) [facility] Comment on above: Performed By: #### L [id number], [id number] ####Patrol Conductor: UNA ARCE ([phone])[facility] [place] (SBHLAB)[address] [place] [address] [place] POIKILOCYTOSIS (PRESENCE) IN BLOOD BY LIGHT MICROSCOPY Slight Abnormal (none) [facility] Comment on above: Performed By: #### L [id number], [id number] ####Patrol Conductor: UNA ARCE ([phone])[facility] ([facility] [place] [address] [place] POLYCHROMASIA IN BLOOD BY LIGHT MICROSCOPY Slight Abnormal (none) [facility] Comment on above: Performed By: #### L [id number], [id number] ####Patrol Conductor: UNA ARCE ([phone])[facility] (SBHLAB)[address] [place] [address] [place] PROMYELOCYTES TOTAL PER COUNTED LEUKOCYTES BY MANUAL COUNT Normal [facility] Comment on above: Performed By: #### L [id number], [id number] ####Patrol Conductor: UNA ARCE ([phone])[facility] (SBHLAB)[address] [place] [address] [place] RBC MORPHOLOGY IN BLOOD abnormal Normal [facility] Comment on above: Performed By: #### L [id number], [id number] ####Patrol Conductor: UNA ARCE ([phone])[facility] ([facility])[address] [place] [address] [place] SEGMENTED NEUTROPHILS (10*3/UL) IN BLOOD-CELLAVISION 10.5 10*3/uL High 1.8-7.5 [facility] Comment on above: Performed By: #### L [id number], [id number] ####Patrol Conductor: UNA ARCE ([phone])[facility] ([facility])[address] [place] [address] [place] SEGMENTED NEUTROPHILS/100 LEUKOCYTES-CE 76 % Normal 38-82 [facility] Comment on above: Performed By: #### L [id number], [id number] ####Patrol Conductor: UNA ARCE ([id number])[facility] [place] ([facility])[address] STOMATOCYTES IN BLOOD BY LIGHT MICROSCOPY Slight Abnormal (none) [facility] Comment on above: Performed By: #### L [id number], [id number] ####Patrol Conductor: UNA ARCE ([id number])[facility] (SBHLAB)[address] TARGET CELLS IN BLOOD BY LIGHT MICROSCOPY Slight Abnormal (none) [facility] Comment on above: Performed By: #### L [id number], [id number] ####Patrol Conductor: UNA ARCE ([id number])[facility] UNCLASSIFIED CELLS TOTAL PER COUNTED LEUKOCYTES BY MANUAL COUNT Normal [facility] Comment on above: Performed By: #### L [id number], [id number] ####Patrol Conductor: UNA ARCE ([phone])[facility] VARIANT LYMPHOCYTES TOTAL PER COUNTED LEUKOCYTES BY MANUAL COUNT Normal [facility] Comment on above: Performed By: #### L [id number], [id number] ####Patrol Conductor: UNA ARCE ([phone])[facility] ([facility])[address] [place] [address] Magnesium [Mass/Vol]on 04-11 [facility] No Panel Informationon 04-11 Basophils Manual 1 [facility] Eosinophils Manual 1 0 - 1 [facility] Interpretation and review of laboratory results Abnormal [facility] Lymphocytes Manual 10 [facility] Monocytes Manual 13 [facility] Neutrophils Manual 79 [facility] Interpretation and review of laboratory results Normal [facility] PHOSPHORUSon 04-11-2025 Phosphate [Mass/Vol] 2.5 mg/dL Normal 2.3-4.7 [facility] Comment on above: Performed By: #### L AB103, [id number], LAB17 ####Patrol Conductor: UNA ARCE ([phone])[facility] ([facility])[address] [place] [address] [facility] Phosphate [Moles/Vol]on Phosphate [Mass/Vol] 2.5 mg/dL 2.3 - 4 .7 mg/dL [facility] Progress Noteon 04-11-2025 Progress [facility] Normal [facility] Progress Note Normal [facility] Progress Note Normal [facility] XR Chest Single viewon 04-11 [facility] Radiology Study observation (narrative) [facility] XR Chest Single viewOrdered By: Katalina Corona on 04-11-2025 [facility] Work Phone: [phone] [id number] Normal [facility] CBC W Auto Differential pane l (Bld)on 04-10-2025 Erythrocyte distribution width (RBC) [Ratio] 22.9 % High 11.5 - 15.0 % [facility] Hematocrit (Bld) [Volume fraction] 26.1 % Low 40.0 - 52.0 % [facility] Hemoglobin (Bld) [Mass/Vol] 7.2 g/dL Low 13.0 - 18.0 g/dL [facility] Interpretation and review of laboratory results Abnormal [facility] MCH (RBC) [Entitic mass] 22.6 pg Low 26. 0 - 34.0 pg [facility] MCHC (RBC) [Mass/Vol] 27.6 % Low 30.5 - 36.0 % [facility] MCV (RBC) [Entitic vol] 82.1 fL 77.0 - 99.0 fL [facility] Platelet mean volume (Bld) [Entitic vol] 9.1 fL 9.0 - 12.7 fL [facility] Platelets (Bld) [#/Vol] 294 10*3/uL 140 - 440 10*3/uL [facility] RBC (Bld) [#/Vol] 3.18 10*6/uL Low 4.40 - 5.9 0 10*6/uL [facility] WBC (Bld) [#/Vol] 12.4 10*3/uL High 3.6 - 10.7 10*3/uL [facility] CBC WITH AUTO DIFFERENTIALon 04-10-2025 Erythrocyte distribution width (RBC) [Ratio] 22.9 % High 11.5-15.0 [facility] Comment on above: Performed By: #### L [id number], [id number] ####Patrol Conductor: UNA ARCE ([id number])[facility] (SB[facility])[address] Hematocrit (Bld) [Volume fraction] 26.1 % Low 40.0-52.0 [facility] Comment on above: Performed By: #### L [id number], [id number] ####Patrol Conductor: UNA ARCE ([phone])[facility] ([facility])[address] [place] [address] Hemoglobin (Bld) [Mass/Vol] 7.2 g/dL Low 13.0-18.0 [facility] Comment on above: Performed By: #### L [id number], [id number] ####Patrol Conductor: UNA ARCE ([phone])[facility] ([facility])[address] MCH (RBC) [Entitic mass] 22.6 pg Low 26.0-34.0 [facility] Comment on above: Performed By: #### L [id number], [id number] ####Patrol Conductor: UNA ARCE ([id number])[facility] ([facility])[address] MCHC 27.6 % Low 30.5-36.0 [facility] Comment on above: Performed By: #### L [id number], [id number] ####Patrol Conductor: UNA ARCE ([id number])[facility] ([facility])[address] MCV (RBC) [Entitic vol] 82.1 fL Normal 77.0-99.0 [facility] Comment on above: Performed By: #### L [id number], [id number] ####Patrol Conductor: UNA ARCE ([phone])[facility] (SB[facility]AB)[address] Platelet mean volume (Bld) [Entitic vol] 9.1 fL Normal 9.0-12.7 [facility] Comment on above: Performed By: #### L [id number], [id number] ####Patrol Conductor: UNA ARCE ([id number])[facility]ITAL[facility] (SB[facility]AB)[address] Platelets (Bld) [#/Vol] 294 10*3/uL Normal 140-440 [facility] Comment on above: Performed By: #### L [id number], [id number] ####Patrol Conductor: UNA ARCE ([id number])[facility] ([facility])[address] RBC (Bld) [#/Vol] 3.18 10*6/uL Low 4.40-5.90 [facility] Comment on above: Performed By: #### L [id number], [id number] ####Patrol Conductor: UNA ARCE ([id number])[facility] [place] (SB[facility]AB)[address] WBC (Bld) [#/Vol] 12.4 10*3/uL High 3.6-10.7 [facility] Comment on above: Performed By: #### L [id number], [id number] ####Patrol Conductor: UNA ARCE ([id number])[facility] (SB[facility]AB)[address] COMPREHENSIVE METABOLIC PANE Anant 04-10-2025 Albumin [Mass/Vol] 2.2 g/dL Low 3.4-4.8 [facility] Comment on above: Performed By: #### L AB103, [id number], LAB17 ####Patrol Conductor: UNA ARCE ([phone])[facility] [place] ([facility])[address] ALP [Catalytic activity/Vol] 50 U/L Normal 40-150 [facility] Comment on above: Performed By: #### L AB103, [id number], LAB17 ####Patrol Conductor: UNA ARCE ([phone])[facility] [place] ([facility])[address] [place] [address] [place] ALT [Catalytic activity/Vol] U/L Normal <40 [facility] Comment on above: Performed By: #### L AB103, [id number], LAB17 ####Patrol Conductor: UNA ARCE ([id number])[facility] [place] ([facility])[address] Anion gap [Moles/Vol] 12 mmol/L Normal 3-13 [facility] Comment on above: Performed By: #### L AB103, [id number], LAB17 ####Patrol Conductor: UNA ARCE ([id number])[facility] ([facility])[address] [place] [address] [place] AST [Catalytic activity/Vol] 16 U/L Normal <34 [facility] Comment on above: Performed By: #### Gilbert ABLilly, [id number], LAB17 ####Patrol Conductor: UNA ARCE ([phone])[facility] [place] ([facility])[address] Bilirubin [Mass/Vol] 0.6 mg/dL Normal <1.2 [facility] Comment on above: Performed By: #### L AB103, [id number], LAB17 ####Patrol Conductor: UNA ARCE ([phone])[facility] [place] ([facility])[address] [place] [address] [place] Calcium [Mass/Vol] 8.0 mg/dL Low 8.8-10.0 [facility] Comment on above: Performed By: #### L AB103, DIA001, LAB17 ####Patrol Conductor: UNA ARCE ([id number])[facility] (SB[facility])[address] [place] [address] [place] Chloride [Moles/Vol] 95 mmol/L Low 98-107 [facility] Comment on above: Performed By: #### L AB103, WCP895, LAB17 ####Patrol Conductor: UNA ARCE ([phone])[facility] ([facility])[address] CO2 [Moles/Vol] 35 mmol/L High 23-31 [facility] Comment on above: Performed By: #### L AB103, MNT083, LAB17 ####Patrol Conductor: UNA ARCE ([id number])[facility] ([facility])[address] Creatinine [Mass/Vol] 1.65 mg/dL High 0.72-1.25 [facility] Comment on above: Performed By: #### L AB103, FLZ421, LAB17 ####Patrol Conductor: UNA ARCE ([phone])[facility] ([facility])[address] GLOMERULAR FILTRATION RATE ML/MIN/1.73 SQ M.PREDICTED 39.4 mL/min/1.73m*2 Low >60.0 [facility] Comment on above: Result Comment: Calc ulation based on the Chronic Kidney Disease Epidemiology Collaboration (CKD-EPI) equation refit without adjustment for race Performed By: #### L AB103, [id number], LAB17 ####Patrol Conductor: UNA ARCE ([phone])[facility] ([facility])[address] Glucose [Mass/Vol] 98 mg/dL Normal 82-115 [facility] Comment on above: Performed By: #### L AB103, ADZ881, LAB17 ####Patrol Conductor: UNA ARCE ([id number])[facility] Potassium [Moles/Vol] 3.2 mmol/L Low 3.5-5.1 [facility] Comment on above: Result Comment: [facility] potassium values may be up to 0.5 mmol/L lower than serum values. Performed By: #### L AB103, MXB989, LAB17 ####Patrol Conductor: UNA ARCE ([phone])[facility] ([facility])[address] Protein [Mass/Vol] 5.5 g/dL Low 6.4-8.3 [facility] Comment on above: Performed By: #### L AB103, BFS764, LAB17 ####Patrol Conductor: UNA ARCE ([id number])[facility] ([facility])[address] Sodium [Moles/Vol] 142 mmol/L Normal 136-145 [facility] Comment on above: Performed By: #### L AB103, YDP000, LAB17 ####Patrol Conductor: UNA ARCE ([phone])[facility] ([facility])[address] [place] [address] Urea nitrogen [Mass/Vol] 32 mg/dL High 9-23 [facility] Comment on above: Performed By: #### L AB103, [id number], LAB17 ####Patrol Conductor: UNA ARCE ([phone])[facility] ([facility])[address] [place] [address] Comprehensive metabolic 1998 panelon 04-10-2025 Albumin [Mass/Vol] 2.2 g/dL Low 3.4 - 4.8 g/dL [facility] ALP [Catalytic activity/Vol] 50 U/L 40 - 150 U/L [facility] ALT [Catalytic activity/Vol] U/L NINF - 40 U/L [facility] Anion gap [Moles/Vol] 12 mmol/L 3 - 13 mmol/L [facility] AST [Catalytic activity/Vol] 16 U/L NINF - 34 U/L [facility] Bilirubin [Mass/Vol] 0.6 mg/dL NINF - 1.2 mg/dL [facility] Calcium [Mass/Vol] 8 mg/dL Low 8.8 - 10. 0 mg/dL [facility] Chloride [Moles/Vol] 95 mmol/L Low 98 - 10 7 mmol/L [facility] CO2 [Moles/Vol] 35 mmol/L High 23 - 31 mmol/L [facility] Creatinine [Mass/Vol] 1.65 mg/dL High 0.72 - 1.25 mg/dL [facility] GFR/1.73 sq M.predicted (S/P/Bld) [Vol rate/Area] 39.4 mL/min Low - PINF [facility] Glucose [Mass/Vol] 98 mg/dL 82 - 115 mg/dL [facility] Interpretation and review of laboratory results Abnormal [facility] Potassium [Moles/Vol] 3.2 mmol/L Low 3.5 - 5.1 mmol/L [facility] Protein [Mass/Vol] 5.5 g/dL Low 6.4 - 8.3 g/dL [facility] Sodium [Moles/Vol] 142 mmol/L 136 - 145 mmol/L [facility] Urea nitrogen [Mass/Vol] 32 mg/dL High 9 - 23 mg/d L [facility] Laboratory - Chemistry and C hemistry - challengeon 04-10-2025 Magnesium [Mass/Vol] 1.7 mg/dL 1.6 - 2 .6 mg/dL [facility] - Hematology and Cell countson 04-10-2025 Anisocytosis Ql (Bld) Slight Abnormal (none) [facility] Band form neutrophils (Bld) [#/Vol] 0.2 10*3/uL High NINF - 0.0 10*3/uL [facility] Band form neutrophils/100 WBC (Bld) 2 % High NINF - 0 % [facility] Basophils (Bld) [#/Vol] 0.5 10*3/uL High 0.0 - 0.2 10*3/uL [facility] Basophils/100 WBC (Bld) 4 % High 0 - 2 % [facility] Eosinophils (Bld) [#/Vol] 0.5 10*3/uL 0.0 - 0.5 10*3/uL [facility] Eosinophils/100 WBC (Bld) 4 % 0 - 6 % [facility] Lymphocytes (Bld) [#/Vol] 0.9 10*3/uL Low 1.0 - 4.3 10*3/uL [facility] Lymphocytes/100 WBC (Bld) 7 % Low 15 - 45 % [facility] Monocytes (Bld) [#/Vol] 0.5 10*3/uL 0.0 - 0.9 10*3/uL [facility] Monocytes/100 WBC (Bld) 4 % Low 5 - 13 % [facility] Myelocytes (Bld) [#/Vol] 0.1 10*3/uL High SELENE F - 0.0 10*3/uL [facility] Myelocytes/100 WBC (Bld) 1 % High NINF - 0 % [facility] Neutrophils (Bld) [#/Vol] 9.9 10*3/uL High 1.8 - 7.5 10*3/uL [facility] Poikilocytosis LM Ql (Bld) Slight Abnormal (none) [facility] RBC morphology finding Nom (Bld) abnormal [facility] Segmented neutrophils/100 WBC (Bld) 78 % 38 - 82 % [facility] Stomatocytes LM Ql (Bld) Moderate Abnormal (none) [facility] MAGNESIUMon 04-10-2025 Magnesium [Mass/Vol] 1.7 mg/dL Normal 1.6-2.6 [facility] Comment on above: Result Comment: YARELI [place] COMMENTS:Higher values can be expected in females during menses. Performed By: #### L [id number], [id number], [id number] ####Patrol Conductor: UNA ARCE ([phone])[facility] ([facility])[address] [place] [address] MANUAL DIFFERENTIAL (CELLAVI BANDAR)on 04-10-2025 ANISOCYTOSIS PRESENCE IN BLOOD BY LIGHT MICROSCOPY Slight Abnormal (none) [facility] Comment on above: Performed By: #### L [id number], [id number] ####Patrol Conductor: UNA ARCE ([phone])[facility] ([facility])[address] BAND NEUTROPHILS TOTAL PER COUNTED LEUKOCYTES BY MANUAL COUNT 2 Normal [facility] Comment on above: Performed By: #### L [id number], [id number] ####Patrol Conductor: UNA ARCE ([id number])[facility] [place] [address] [place] BANDS (10*3/UL) IN BLOOD-CELLAVISION 0.2 10*3/uL High <=0.0 [facility] Comment on above: Performed By: #### L [id number], [id number] ####Patrol Conductor: UNA ARCE ([id number])[facility] ([facility])[address] [place] [address] [place] BASOPHILS (10*3/UL) IN BLOOD-CELLAVISION 0.5 10*3/uL High 0.0-0.2 [facility] Comment on above: Performed By: #### L [id number], [id number] ####Patrol Conductor: UNA ARCE ([id number])[facility] [place] ([facility])[address] [place] [address] [place] BASOPHILS TOTAL PER COUNTED LEUKOCYTES BY MANUAL COUNT 4 Normal [facility] Comment on above: Performed By: #### L [id number], [id number] ####Patrol Conductor: UNA ARCE ([id number])[facility] [place] ([facility])[address] [place] [address] [place] BASOPHILS/100 LEUKOCYTES IN BLOOD-CELLAVISION 4 % High 0-2 [facility] Comment on above: Performed By: #### L [id number], [id number] ####Patrol Conductor: UNA ARCE ([phone])[facility] [place] ([facility])[address] [place] [address] [place] BLASTS TOTAL PER COUNTED LEUKOCYTES BY MANUAL COUNT Normal [facility] Comment on above: Performed By: #### L [id number], [id number] ####Patrol Conductor: UNA ARCE ([id number])[facility] [place] ([facility])[address] [place] [address] [place] EOSINOPHILS (10*3/UL) IN BLOOD-CELLAVISION 0.5 10*3/uL Normal 0.0-0.5 [facility] Comment on above: Performed By: #### L [id number], [id number] ####Patrol Conductor: UNA ARCE ([id number])[facility] ([facility])[address] [place] [address] [place] EOSINOPHILS TOTAL PER COUNTED LEUKOCYTES BY MANUAL COUNT 4 High 0-1 [facility] Comment on above: Performed By: #### L [id number], [id number] ####Patrol Conductor: UNA ARCE ([phone])[facility] ([facility])[address] [place] [address] [place] EOSINOPHILS/100 LEUKOCYTES IN BLOOD-CELLAVISION 4 % Normal 0-6 [facility] Comment on above: Performed By: #### L [id number], [id number] ####Patrol Conductor: UNA ARCE ([id number])[facility] [place] ([facility])[address] [place] [address] [place] LYMPHOCYTES (10*3/UL) IN BLOOD-CELLAVISION 0.9 10*3/uL Low 1.0-4.3 [facility] Comment on above: Performed By: #### L [id number], [id number] ####Patrol Conductor: UNA ARCE ([id number])[facility] ([facility])[address] [place] [address] [place] LYMPHOCYTES TOTAL PER COUNTED LEUKOCYTES BY MANUAL COUNT 7 Normal [facility] Comment on above: Performed By: #### L [id number], [id number] ####Patrol Conductor: UNA ARCE ([id number])[facility] ([facility])[address] [place] [address] [place] LYMPHOCYTES/100 LEUKOCYTES IN BLOOD-CELLAVISION 7 % Low 15-45 [facility] Comment on above: Performed By: #### L [id number], [id number] ####Patrol Conductor: UNA ARCE ([phone])[facility] [place] ([facility])[address] [place] [address] [place] METAMYELOCYTES TOTAL PER COUNTED LEUKOCYTES BY MANUAL COUNT Normal [facility] Comment on above: Performed By: #### L [id number], [id number] ####Patrol Conductor: UNA ARCE ([id number])[facility] ([facility])[address] [place] [address] [place] MONOCYTES (10*3/UL) IN BLOOD-CELLAVISION 0.5 10*3/uL Normal 0.0-0.9 [facility] Comment on above: Performed By: #### L AT6254, [id number] ####Patrol Conductor: UNA ARCE ([id number])[facility] ([facility])[address] [place] [address] [place] MONOCYTES TOTAL PER COUNTED LEUKOCYTES BY MANUAL COUNT 4 Normal [facility] Comment on above: Performed By: #### L [id number], [id number] ####Patrol Conductor: UNA MOHRCER ([id number])[facility] ([facility])[address] [place] [address] [place] MONOCYTES/100 LEUKOCYTES IN BLOOD-LUCIANA 4 % Low 5-13 [facility] Comment on above: Performed By: #### L [id number], [id number] ####Patrol Conductor: UNA ARCE ([id number])[facility] [place] ([facility])[address] [place] [address] [place] MYELOCYTES (10*3/UL) IN BLOOD-CELLAVISION 0.1 10*3/uL High <=0.0 [facility] Comment on above: Performed By: #### L [id number], [id number] ####Patrol Conductor: UNA ARCE ([id number])[facility] [place] ([facility])[address] [place] [address] [place] MYELOCYTES COUNTED BY MANUAL COUNT 1 Normal [facility] Comment on above: Performed By: #### L [id number], [id number] ####Patrol Conductor: UNA ARCE ([phone])[facility] [place] ([facility])[address] [place] [address] [place] MYELOCYTES/100 LEUKOCYTES IN BLOOD-CELLAVISION 1 % High <=0 [facility] Comment on above: Performed By: #### L [id number], [id number] ####Patrol Conductor: UNA ARCE ([id number])[facility] ([facility])[address] [place] [address] [place] NEUTROPHILS BAND FORM/100 LEUKOCYTES IN BLOOD-CELLAVISI 2 % High <=0 [facility] Comment on above: Performed By: #### L [id number], [id number] ####Patrol Conductor: UNA ARCE ([id number])[facility] ([facility])[address] [place] [address] [place] NEUTROPHILS TOTAL PER COUNTED LEUKOCYTES BY MANUAL COUNT 79 Normal [facility] Comment on above: Performed By: #### L [id number], [id number] ####Patrol Conductor: UNA ARCE ([id number])[facility] [place] ([facility])[address] POIKILOCYTOSIS (PRESENCE) IN BLOOD BY LIGHT MICROSCOPY Slight Abnormal (none) [facility] Comment on above: Performed By: #### L [id number], [id number] ####Patrol Conductor: UNA ARCE ([id number])[facility] [place] ([facility])[address] PROMYELOCYTES TOTAL PER COUNTED LEUKOCYTES BY MANUAL COUNT [facility] Comment on above: Performed By: #### L [id number], [id number] ####Patrol Conductor: UNA ARCE ([id number])[facility] [place] ([facility])[address] [place] [address] [place] RBC MORPHOLOGY IN BLOOD abnormal Normal [facility] Comment on above: Performed By: #### L [id number], [id number] ####Patrol Conductor: UNA ARCE ([id number])[facility] [place] ([facility])[address] [place] [address] [place] SEGMENTED NEUTROPHILS (10*3/UL) IN BLOOD-CELLAVISION 9.9 10*3/uL High 1.8-7.5 [facility] Comment on above: Performed By: #### L [id number], [id number] ####Patrol Conductor: UNA ARCE ([id number])[facility] ([facility])[address] SEGMENTED NEUTROPHILS/100 LEUKOCYTES-CE 78 % Normal 38-82 [facility] Comment on above: Performed By: #### L [id number], [id number] ####Patrol Conductor: UNA ARCE ([id number])[facility] [place] ([facility])[address] STOMATOCYTES IN BLOOD BY LIGHT MICROSCOPY Moderate Abnormal (none) [facility] Comment on above: Performed By: #### L [id number], [id number] ####Patrol Conductor: UNA ARCE ([id number])[facility] [place] ([facility])[address] UNCLASSIFIED CELLS TOTAL PER COUNTED LEUKOCYTES BY MANUAL COUNT Normal [facility] Comment on above: Performed By: #### L [id number], [id number] ####Patrol Conductor: UNA ARCE ([id number])[facility] ([facility])[address] VARIANT LYMPHOCYTES TOTAL PER COUNTED LEUKOCYTES BY MANUAL COUNT Normal [facility] Comment on above: Performed By: #### L [id number], [id number] ####Patrol Conductor: UNA STAUFFERMELANIE ([phone])[facility] Magnesium [Mass/Vol]on 04-10 [facility] No Panel Informationon 04-10 Bands Manual 2 [facility] Basophils Manual 4 [facility] Eosinophils Manual 4 High 0 - 1 [facility] Interpretation and review of laboratory results Abnormal [facility] Lymphocytes Manual 7 [facility] Monocytes Manual 4 [facility] Myelocytes [facility] 1 [facility] Neutrophils Manual 79 [facility] Interpretation and review of laboratory results Normal [facility] PHOSPHORUSon 04-10-2025 Phosphate [Mass/Vol] 2.6 mg/dL Normal 2.3-4.7 [facility] Comment on above: Performed By: #### L AB103, [id number], LAB17 ####Patrol Conductor: UNA ARCE ([id number])[facility] ([facility])[address] Phosphate [Moles/Vol]on Phosphate [Mass/Vol] 2.6 mg/dL 2.3 - 4 .7 mg/dL [facility] Progress Noteon 04-10-2025 Progress Note Normal [facility] Progress Note Normal [facility] Progress Note Normal [facility] Progress Note Will assume care as patient is being transferred out of ICU. D/w Dr Lewis via secure chat Normal [facility] Progress Note Normal [facility] Progress Note Normal [facility] [id number] 04-09-2025 [id number] Normal [facility] [id number] Normal [facility] BODY FLUID CELL COUNT WITH R EFLEX DIFFon 04-09-2025 RBC, BODY FLUID (AUTOMATED) <0.002 High 0.000 [facility] Comment on above: Performed By: #### L AB209, [id number] ####Patrol Conductor: UNA ARCE ([id number])[facility] ([facility])[address] [place] [address] TYPE OF BODY FLUID Pleural Fluid Normal [facility] Comment on above: Performed By: #### L AB209, [id number] ####Patrol Conductor: UNA ARCE ([id number])[facility] ([facility])[address] [place] [address] Result Comment: YARELI [place] COMMENTS:This test was developed and its performance characteristics determined by [employer]. It has not been cleared or approved by the [place] Food and Drug Administration. This test was performed in a CLIA certified laboratory and is intended for clinical purposes. Performed By: #### L AB110, GFV940, EVL707, [id number] ####Patrol Conductor: ANAHY AVILA ([phone])[facility] ([facility])[address] [place] [address] Result Comment: YARELI [place] COMMENTS:This test was developed and its performance characteristics determined by [employer]. It has not been cleared or approved by the [place] Food and Drug Administration. This test was performed in a CLIA certified laboratory and is intended for clinical purposes.Normal pleural fluid glucose is similar to serum concentrations. Transudates and most exudates >60 mg/dL. Pleural fluid exudates with glucose concentrations <60 mg/dL have been associated with conditions such as parapneumonic effusion, tuberculosis, malignancy, empyema, and/or rheumatoid disease. Result Comment: YARELI [place] COMMENTS:This test was developed and its performance characteristics determined by [employer]. It has not been cleared or approved by the [place] Food and Drug Administration. This test was performed in a CLIA certified laboratory and is intended for clinical purposes.Pleural gocsc-ig-rrjmw protein ratio of >0.5 is one of Light???s criteria for an exudate. Heart failure associated misclassifications (by Light???s criteria) may be differentiated as transudative effusions by subsequently evaluating a gkbbb-yq-rdmbykm albumin gradient (>1.2 g/dL) and/or a zihmh-qr-nsjfx protein gradient (>3.1 g/dL). Result Comment: YARELI [place] COMMENTS:This test was developed and its performance characteristics determined by [employer]. It has not been cleared or approved by the [place] Food and Drug Administration. This test was performed in a CLIA certified laboratory and is intended for clinical purposes.Exudates are defined as meeting one of the following criteria: (a) Pleural neqdw-hk-zhwtj protein ratio of >0.5, (b) pleural hmspz-hk-jyygv LDH ratio of >0.6, or (c)a pleural fluid LDH activity that is >2/3 the upper limit of a normal serum LDH activity (Light???s criteria). WBC, BODY FLUID (AUTOMATED) 0.341 x10*3/ul High <=0.005 [facility] Comment on above: Performed By: #### L AB209, [id number] ####Patrol Conductor: UNA ARCE ([id number])[facility] ([facility])[address] [place] [address] RBC, BODY FLUID (AUTOMATED) <0.002 High 0.000 [facility] Comment on above: Performed By: #### L AB209, [id number] ####Patrol Conductor: UNA STAUFFERMELANIE ([id number])[facility] ([facility])[address] [place] [address] TYPE OF BODY FLUID Pleural Fluid Normal [facility] Comment on above: Performed By: #### L AB209, [id number] ####Patrol Conductor: UNAANJEL ARCE ([id number])[facility] ([facility])[address] [place] [address] Result Comment: YARLEI [place] COMMENTS:This test was developed and its performance characteristics determined by [employer]. It has not been cleared or approved by the US Food and Drug Administration. This test was performed in a CLIA certified laboratory and is intended for clinical purposes.Exudates are defined as meeting one of the following criteria: (a) Pleural vfavv-dr-nhpgl protein ratio of >0.5, (b) pleural cncja-gj-ljcbr LDH ratio of >0.6, or (c)a pleural fluid LDH activity that is >2/3 the upper limit of a normal serum LDH activity (Light???s criteria). Performed By: #### L AB188, DEZ301, ZYC139, [id number] ####Patrol Conductor: ANAHY AVILA ([id number])[facility] ([facility])[address] [place] [address] Result Comment: YARELI R COMMENTS:This test was developed and its performance characteristics determined by [employer]. It has not been cleared or approved by the [place] Food and Drug Administration. This test was performed in a CLIA certified laboratory and is intended for clinical purposes.Normal pleural fluid glucose is similar to serum concentrations. Transudates and most exudates >60 mg/dL. Pleural fluid exudates with glucose concentrations <60 mg/dL have been associated with conditions such as parapneumonic effusion, tuberculosis, malignancy, empyema, and/or rheumatoid disease. Result Comment: YARELI R COMMENTS:This test was developed and its performance characteristics determined by [employer]. It has not been cleared or approved by the US Food and Drug Administration. This test was performed in a CLIA certified laboratory and is intended for clinical purposes.Pleural jylxl-se-kwpcl protein ratio of >0.5 is one of Light???s criteria for an exudate. Heart failure associated misclassifications (by Light???s criteria) may be differentiated as transudative effusions by subsequently evaluating a usici-xv-psviwkn albumin gradient (>1.2 g/dL) and/or a vxbtb-tj-truhh protein gradient (>3.1 g/dL). Result Comment: YARELI [place] COMMENTS:This test was developed and its performance characteristics determined by [facility] [employer]. It has not been cleared or approved by the US Food and Drug Administration. This test was performed in a CLIA certified laboratory and is intended for clinical purposes. WBC, BODY FLUID (AUTOMATED) 0.112 x10*3/ul High <=0.005 [facility] Comment on above: Performed By: #### L AB209, [id number] ####Patrol Conductor: UNA ARCE ([id number])[facility] ([facility])[address] BODY FLUID DIFFERENTIALon CELLS COUNTED TOTAL (#) IN BODY FLUID 100 Normal [facility] Comment on above: Performed By: #### L AB209, [id number] ####Patrol Conductor: UNA ARCE ([id number])[facility] ([facility])[address] [place] [address] [place] LYMPHOCYTES/100 LEUKOCYTES IN BODY FLUID BY MAN CT 51 % Normal [facility] Comment on above: Performed By: #### L AB209, [id number] ####Patrol Conductor: UNA ARCE ([id number])[facility] [place] [address] [place] MONOCYTES+MACROPHAGES/10 0 WBC IN BODY FLUID BY MAN CT 36 % Normal [facility] Comment on above: Performed By: #### L AB209, [id number] ####Patrol Conductor: UNA ARCE ([id number])[facility] ([facility])[address] [place] [address] [place] Neutrophils/100 WBC (Bld) 13 % Normal [facility] Comment on above: Performed By: #### L AB209, [id number] ####Patrol Conductor: UNA STAUFFERMELANIE ([id number])[facility] ([facility])[address] CELLS COUNTED TOTAL (#) IN BODY FLUID 100 Normal [facility] Comment on above: Performed By: #### L AB209, [id number] ####Patrol Conductor: UNA BERMUDEZPEDRO ([id number])[facility] ([facility])[address] [place] [address] [place] LYMPHOCYTES/100 LEUKOCYTES IN BODY FLUID BY MAN CT 31 % Normal [facility] Comment on above: Performed By: #### L AB209, [id number] ####Patrol Conductor: UNA BERMUDEZPEDRO ([id number])[facility] ([facility])[address] MESOTHELIAL CELLS/100 LEUKOCYTES IN BODY FLUID BY MANUAL COUNT 2 % Normal [facility] Comment on above: Performed By: #### L AB209, [id number] ####Patrol Conductor: UNA STAUFFERMELANIE ([id number])[facility] ([facility])[address] [place] [address] [place] MONOCYTES+MACROPHAGES/10 0 WBC IN BODY FLUID BY MAN CT 37 % Normal [facility] Comment on above: Performed By: #### L AB209, [id number] ####Patrol Conductor: UNA STAUFFERMELANIE ([phone])[facility] ([facility])[address] [place] [address] [place] Neutrophils/100 WBC (Bld) 30 % Normal [facility] Comment on above: Performed By: #### L AB209, [id number] ####Patrol Conductor: UNA BERMUDEZPEDRO ([phone])[facility] [place] ([facility])[address] [place] [address] [place] CBC W Auto Differential pane l (Bld)Ordered By: Jg Sarabia on 04-09-2025 Erythrocyte distribution width (RBC) [Ratio] 21.8 % High 11.5 - 15.0 % [facility] Hematocrit (Bld) [Volume fraction] 27.7 % Low 40.0 - 52.0 % [facility] Hemoglobin (Bld) [Mass/Vol] 7.5 g/dL Low 13.0 - 18.0 g/dL [facility] MCH (RBC) [Entitic mass] 22.6 pg Low 26. 0 - 34.0 pg [facility] MCHC (RBC) [Mass/Vol] 27.1 % Low 30.5 - 36.0 % [facility] MCV (RBC) [Entitic vol] 83.4 fL 77.0 - 99.0 fL [facility] Platelet mean volume (Bld) [Entitic vol] 9.4 fL 9.0 - 12.7 fL [facility] Platelets (Bld) [#/Vol] 279 10*3/uL 140 - 440 10*3/uL [facility] RBC (Bld) [#/Vol] 3.32 10*6/uL Low 4.40 - 5.9 0 10*6/uL [facility] WBC (Bld) [#/Vol] 11.2 10*3/uL High 3.6 - 10.7 10*3/uL [facility] CBC WITH AUTO DIFFERENTIALon 04-09-2025 Erythrocyte distribution width (RBC) [Ratio] 21.8 % High 11.5-15.0 [facility] Comment on above: Performed By: #### L [id number], [id number] ####Patrol Conductor: UNA ARCE ([phone])[facility] ([facility])[address] [place] [address] Hematocrit (Bld) [Volume fraction] 27.7 % Low 40.0-52.0 [facility] Comment on above: Performed By: #### L [id number], [id number] ####Patrol Conductor: UNA ARCE ([id number])[facility] [place] [address] Hemoglobin (Bld) [Mass/Vol] 7.5 g/dL Low 13.0-18.0 [facility] Comment on above: Performed By: #### L [id number], [id number] ####Patrol Conductor: UNA ARCE ([id number])[facility] ([facility])[address] MCH (RBC) [Entitic mass] 22.6 pg Low 26.0-34.0 [facility] Comment on above: Performed By: #### L [id number], [id number] ####Patrol Conductor: UNA ARCE ([id number])[facility] ([facility])[address] MCHC 27.1 % Low 30.5-36.0 [facility] Comment on above: Performed By: #### L [id number], [id number] ####Patrol Conductor: UNA ARCE ([id number])[facility] ([facility])[address] MCV (RBC) [Entitic vol] 83.4 fL Normal 77.0-99.0 [facility] Comment on above: Performed By: #### L [id number], [id number] ####Patrol Conductor: UNA ARCE ([id number])[facility] ([facility])[address] Platelet mean volume (Bld) [Entitic vol] 9.4 fL Normal 9.0-12.7 [facility] Comment on above: Performed By: #### L AV5765, [id number] ####Patrol Conductor: UNA ARCE ([id number])[facility] ([facility])[address] [place] [address] [place] Platelets (Bld) [#/Vol] 279 10*3/uL Normal 140-440 [facility] Comment on above: Performed By: #### L [id number], [id number] ####Patrol Conductor: UNA ARCE ([id number])[facility] [place] ([facility])[address] RBC (Bld) [#/Vol] 3.32 10*6/uL Low 4.40-5.90 [facility] Comment on above: Performed By: #### L [id number], [id number] ####Patrol Conductor: UNA ARCE ([id number])[facility] ([facility])[address] WBC (Bld) [#/Vol] 11.2 10*3/uL High 3.6-10.7 [facility] Comment on above: Performed By: #### L [id number], [id number] ####Patrol Conductor: UNA ARCE ([id number])[facility] ([facility])[address] COMPREHENSIVE METABOLIC PANE Anant 04-09-2025 Albumin [Mass/Vol] 2.2 g/dL Low 3.4-4.8 [facility] Comment on above: Performed By: #### L AB103, [id number], LAB17 ####Patrol Conductor: UNA ARCE ([id number])[facility] ([facility])[address] ALP [Catalytic activity/Vol] 56 U/L Normal 40-150 [facility] Comment on above: Performed By: #### L AB103, [id number], LAB17 ####Patrol Conductor: UNA ARCE ([id number])[facility] ([facility])[address] ALT [Catalytic activity/Vol] U/L Normal <40 [facility] Comment on above: Performed By: #### L AB103, GLG539, LAB17 ####Patrol Conductor: UNA ARCE ([id number])[facility] ([facility])[address] Anion gap [Moles/Vol] 10 mmol/L Normal 3-13 [facility] Comment on above: Performed By: #### L AB103, [id number], LAB17 ####Patrol Conductor: UNA STAUFFERMELANIE ([id number])[facility] ([facility])[address] AST [Catalytic activity/Vol] 18 U/L Normal <34 [facility] Comment on above: Performed By: #### Gilbert ABLilly, BPJ134, LAB17 ####Patrol Conductor: UNA ARCE ([id number])[facility] ([facility])[address] Bilirubin [Mass/Vol] 0.7 mg/dL Normal <1.2 [facility] Comment on above: Performed By: #### Gilbert SEPULVEDA, [id number], LAB17 ####Patrol Conductor: UNA ARCE ([id number])[facility] [place] ([facility])[address] Calcium [Mass/Vol] 8.1 mg/dL Low 8.8-10.0 [facility] Comment on above: Performed By: #### Giblert ABLilly, [id number], LAB17 ####Patrol Conductor: UNA ARCE ([id number])[facility] [place] ([facility])[address] Chloride [Moles/Vol] 98 mmol/L Normal 98-107 [facility] Comment on above: Performed By: #### Gilbert ABLilly, UQS825, LAB17 ####Patrol Conductor: UNA ARCE ([id number])[facility] ([facility])[address] CO2 [Moles/Vol] 34 mmol/L High 23-31 [facility] Comment on above: Performed By: #### Gilbert ABLilly, [id number], LAB17 ####Patrol Conductor: UNA ARCE ([phone])[facility] [place] ([facility])[address] Creatinine [Mass/Vol] 1.53 mg/dL High 0.72-1.25 [facility] Comment on above: Performed By: #### L [id number], [id number], LAB17 ####Patrol Conductor: UNA ARCE ([phone])[facility] [place] ([facility])[address] GLOMERULAR FILTRATION RATE ML/MIN/1.73 SQ M.PREDICTED 43.2 mL/min/1.73m*2 Low >60.0 [facility] Comment on above: Result Comment: Calc ulation based on the Chronic Kidney Disease Epidemiology Collaboration (CKD-EPI) equation refit without adjustment for race Performed By: #### L AB103, CHD697, LAB17 ####Patrol Conductor: UNA ARCE ([phone])[facility] (SBHLAB)[address] Glucose [Mass/Vol] 90 mg/dL Normal 82-115 [facility] Comment on above: Performed By: #### L AB103, GDS739, LAB17 ####Patrol Conductor: UNA ARCE ([phone])[facility] (HLAB)[address] Potassium [Moles/Vol] 3.5 mmol/L Normal 3.5-5.1 [facility] Comment on above: Result Comment: [facility] potassium values may be up to 0.5 mmol/L lower than serum values. Performed By: #### L AB103, HKM873, LAB17 ####Patrol Conductor: UNA ARCE ([id number])[facility] (SBHLAB)[address] Protein [Mass/Vol] 5.7 g/dL Low 6.4-8.3 [facility] Comment on above: Performed By: #### L AB103, ERX173, LAB17 ####Patrol Conductor: UNA ARCE ([phone])[facility] (SBHLAB)[address] [place] [address] [place] Sodium [Moles/Vol] 142 mmol/L Normal 136-145 [facility] Comment on above: Performed By: #### L AB103, NPN648, LAB17 ####Patrol Conductor: UNA ARCE ([phone])[facility] (SBHLAB)[address] Urea nitrogen [Mass/Vol] 25 mg/dL High 9-23 [facility] Comment on above: Performed By: #### L AB103, DUU906, LAB17 ####Patrol Conductor: UNA ARCE ([phone])[facility] (SBHLAB)[address] [place] [address] CULTURE ANAEROBICon 04-09-20 25 CULTURE ANAEROBIC Normal [facility] Comment on above: Performed By: #### L AB233 ####Patrol Conductor: ANAHY AVILA ([phone])[facility] ([facility])[address] [place] [address] CULTURE ANAEROBIC Normal [facility] Comment on above: Performed By: #### L AB233 ####Patrol Conductor: ANAHY AVILA ([phone])[facility] ([facility])[address] [place] [address] CULTURE, AEROBIC BACTERIA WI TH GRAM STAINon 04-09-2025 CULTURE, AEROBIC BACTERIA WITH GRAM STAIN Normal [facility] Comment on above: Performed By: #### L AB897 ####Patrol Conductor: ANAHY AVILA ([phone])[facility] ([facility])[address] [place] [address] CULTURE, AEROBIC BACTERIA WITH GRAM STAIN Normal [facility] Comment on above: Performed By: #### L AB897 ####Patrol Conductor: ANAHY AVILA ([phone])[facility])[address] [place] [address] Comprehensive metabolic 1998 panelon 04-09-2025 Albumin [Mass/Vol] 2.2 g/dL Low 3.4 - 4.8 g/dL [facility] ALP [Catalytic activity/Vol] 56 U/L 40 - 150 U/L [facility] ALT [Catalytic activity/Vol] U/L NINF - 40 U/L [facility] Anion gap [Moles/Vol] 10 mmol/L 3 - 13 mmol/L [facility] AST [Catalytic activity/Vol] 18 U/L NINF - 34 U/L [facility] Bilirubin [Mass/Vol] 0.7 mg/dL NINF - 1.2 mg/dL [facility] Calcium [Mass/Vol] 8.1 mg/dL Low 8.8 - 10. 0 mg/dL [facility] Chloride [Moles/Vol] 98 mmol/L 98 - 10 7 mmol/L [facility] CO2 [Moles/Vol] 34 mmol/L High 23 - 31 mmol/L [facility] Creatinine [Mass/Vol] 1.53 mg/dL High 0.72 - 1.25 mg/dL [facility] GFR/1.73 sq M.predicted (S/P/Bld) [Vol rate/Area] 43.2 mL/min Low - PINF [facility] Glucose [Mass/Vol] 90 mg/dL 82 - 115 mg/dL [facility] Interpretation and review of laboratory results Abnormal [facility] Potassium [Moles/Vol] 3.5 mmol/L 3.5 - 5.1 mmol/L [facility] Protein [Mass/Vol] 5.7 g/dL Low 6.4 - 8.3 g/dL [facility] Sodium [Moles/Vol] 142 mmol/L 136 - 145 mmol/L [facility] Urea nitrogen [Mass/Vol] 25 mg/dL High 9 - 23 mg/d L [facility] Consulton 04-09-2025 Consult Normal [facility] GLUCOSE, BODY FLUIDon 2024 GLUCOSE, BODY FLUID 132 mg/dL Normal [facility] Comment on above: Performed By: #### L AB110, YAE631, SLY232, LDE286 ####Patrol Conductor: ANAHY AVILA ([id number])[facility])[address] [place] [address] GLUCOSE, BODY FLUID 92 mg/dL Normal [facility] Comment on above: Performed By: #### L AB188, RGG507, ADI254, QUD058 ####Patrol Conductor: ANAHY AVILA ([id number])[facility])[address] [place] [address] [place] LACTATE DEHYDROGENASEon LDH [Catalytic activity/Vol] 181 U/L Normal 125-220 [facility] Comment on above: Performed By: #### L AB118, LAB96 ####Patrol Conductor: UNA ARCE ([phone])[facility] (SBHLAB)[address] [place] [address] LACTATE DEHYDROGENASE, BODY FLUIDon 04-09-2025 LACTATE DEHYDROGENASE, BODY FLUID BY LAC->PYR 95 U/L Normal [facility] Comment on above: Performed By: #### L AB110, BQT892, HNI724, RRK781 ####Patrol Conductor: ANAHY AVILA ([id number])[facility] ([facility])[address] [place] [address] LACTATE DEHYDROGENASE, BODY FLUID BY LAC->PYR 95 U/L Normal [facility] Comment on above: Performed By: #### L AB188, MGR979, JHZ505, YEW129 ####Patrol Conductor: ANAHY AVILA ([phone])[facility])[address] [place] [address] LDH Lactate to pyruvate reac tion [Catalytic activity/Vol]on 04-09-2025 Interpretation and review of laboratory results Normal [facility] Laboratoryon 04-09-2025 Fluid Nom (Body fld) Pleural Fluid S [facility] Fluid Nom (Body fld) Pleural Fluid S [facility] Fluid Nom (Body fld) Pleural Fluid S [facility] Fluid Nom (Body fld) Pleural Fluid S [facility] Fluid Nom (Body fld) Pleural Fluid S [facility] Fluid Nom (Body fld) Pleural Fluid S [facility] Fluid Nom (Body fld) Pleural Fluid S [facility] LaboratoryOrdered By: Anne cadena on 04-09-2025 Fluid Nom (Body fld) Pleural Fluid S [facility] LaboratoryOrdered By: Rian Spann on 04-09-2025 Fluid Nom (Body fld) Pleural Fluid S [facility] Laboratory - Chemistry and C hemistry - challengeon 04-09-2025 LDH (Body fld) [Catalytic activity/Vol] 95 U/L [facility] ealth Glucose (Body fld) [Mass/Vol] 132 mg/dL [facility] Protein (Body fld) [Mass/Vol] 2.3 g/dL [facility] pH (Body fld) 7.747 [pH] [facility] pH (Body fld) 7.688 [pH] [facility] Protein (Body fld) [Mass/Vol] 2.5 g/dL [facility] Glucose (Body fld) [Mass/Vol] 92 mg/dL [facility] LDH Lactate to pyruvate reaction [Catalytic activity/Vol] 181 U/L 125 - 220 U/L [facility] Protein [Mass/Vol] 5.9 g/dL Low 6.4 - 8.3 g/dL [facility] Magnesium [Mass/Vol] 1.7 mg/dL 1.6 - 2 .6 mg/dL [facility] Laboratory - Chemistry and C hemistry - challengeOrdered By: Anne Miles on 04-09-2025 LDH (Body fld) [Catalytic activity/Vol] 95 U/L [facility] Laboratory - Hematology and Cell countson 04-09-2025 Cells Counted Total (Body fld) [#] 100 [facility] Lymphocytes/100 WBC (Bld) 51 % [facility] Macrophages/100 WBC Manual cnt (Body fld) 36 % [facility] th Neutrophils/100 WBC (Body fld) 13 % [facility] RBC Auto (Body fld) [#/Vol] High [facility] WBC (Body fld) [#/Vol] 0.341 10*3/uL High NINF [facility] Cells Counted Total (Body fld) [#] 100 [facility] Lymphocytes/100 WBC (Bld) 31 % [facility] Macrophages/100 WBC Manual cnt (Body fld) 37 % [facility] Mesothelial cells/100 WBC Manual cnt (Body fld) 2 % [facility] Neutrophils/100 WBC (Body fld) 30 % [facility] Anisocytosis Ql (Bld) Moderate Abnormal (none) [facility] Eosinophils (Bld) [#/Vol] 0.6 10*3/uL High 0.0 - 0.5 10*3/uL [facility] Eosinophils/100 WBC (Bld) 5 % 0 - 6 % [facility] Hypochromia Ql (Bld) Moderate Abnormal (none) [facility] Lymphocytes (Bld) [#/Vol] 0.8 10*3/uL Low 1.0 - 4.3 10*3/uL [facility] Lymphocytes/100 WBC (Bld) 7 % Low 15 - 45 % [facility] Monocytes (Bld) [#/Vol] 2 10*3/uL High 0.0 - 0.9 10*3/uL [facility] Monocytes/100 WBC (Bld) 18 % High 5 - 13 % S [facility] Neutrophils (Bld) [#/Vol] 8 10*3/uL High 1.8 - 7.5 10*3/uL [facility] Poikilocytosis LM Ql (Bld) Slight Abnormal (none) [facility] Polychromasia LM Ql (Bld) Slight Abnormal (none) [facility] RBC morphology finding Nom (Bld) abnormal [facility] Segmented neutrophils/100 WBC (Bld) 71 % 38 - 82 % [facility] Stomatocytes LM Ql (Bld) Moderate Abnormal (none) [facility] Laboratory - Hematology and Cell countsOrdered By: Kyara Valles on 04-09-2025 RBC Auto (Body fld) [#/Vol] High [facility] WBC (Body fld) [#/Vol] 0.112 10*3/uL High NINF [facility] MAGNESIUMon 04-09-2025 Magnesium [Mass/Vol] 1.7 mg/dL Normal 1.6-2.6 [facility] Comment on above: Result Comment: YARELI [place] COMMENTS:Higher values can be expected in females during menses. Performed By: #### L AB103, EBT458, LAB17 ####Patrol Conductor: UNA ARCE ([phone])[facility] [place] (SBHLAB)[address] [place] [address] MANUAL DIFFERENTIAL (CELLAVI BANDAR)on 04-09-2025 ANISOCYTOSIS PRESENCE IN BLOOD BY LIGHT MICROSCOPY Moderate Abnormal (none) [facility] Comment on above: Performed By: #### L [id number], [id number] ####Patrol Conductor: UNA ARCE ([id number])[facility] [place] (SBHLAB)[address] BAND NEUTROPHILS TOTAL PER COUNTED LEUKOCYTES BY MANUAL COUNT [facility] Comment on above: Performed By: #### L [id number], [id number] ####Patrol Conductor: UNA ARCE ([id number])[facility] [place] (SBHLAB)[address] BASOPHILS TOTAL PER COUNTED LEUKOCYTES BY MANUAL COUNT Normal [facility] Comment on above: Performed By: #### L [id number], [id number] ####Patrol Conductor: UNA ARCE ([phone])[facility] [place] (SBHLAB)[address] [place] [address] [place] BLASTS TOTAL PER COUNTED LEUKOCYTES BY MANUAL COUNT Normal [facility] Comment on above: Performed By: #### L [id number], [id number] ####Patrol Conductor: UNA ARCE ([id number])[facility] [place] (SBHLAB)[address] [place] [address] [place] EOSINOPHILS (10*3/UL) IN BLOOD-CELLAVISION 0.6 10*3/uL High 0.0-0.5 [facility] Comment on above: Performed By: #### L [id number], [id number] ####Patrol Conductor: UNA ARCE ([id number])[facility] [place] (SBHLAB)[address] [place] [address] [place] EOSINOPHILS TOTAL PER COUNTED LEUKOCYTES BY MANUAL COUNT 5 High 0-1 [facility] Comment on above: Performed By: #### L [id number], [id number] ####Patrol Conductor: UNA ARCE ([id number])[facility] [place] (SBHLAB)[address] [place] [address] [place] EOSINOPHILS/100 LEUKOCYTES IN BLOOD-CELLAVISION 5 % Normal 0-6 [facility] Comment on above: Performed By: #### L [id number], [id number] ####Patrol Conductor: UNA ARCE ([phone])[facility] [place] (SBHLAB)[address] [place] [address] [place] HYPOCHROMIA (PRESENCE) IN BLOOD BY LIGHT MICROSCOPY Moderate Abnormal (none) [facility] Comment on above: Performed By: #### L [id number], [id number] ####Patrol Conductor: UNA ARCE ([phone])[facility] [place] (SBHLAB)[address] [place] [address] [place] LYMPHOCYTES (10*3/UL) IN BLOOD-CELLAVISION 0.8 10*3/uL Low 1.0-4.3 [facility] Comment on above: Performed By: #### L [id number], [id number] ####Patrol Conductor: UNA STAUFFERMELANIE ([phone])[facility] [place] (SBHLAB)[address] [place] [address] [place] LYMPHOCYTES TOTAL PER COUNTED LEUKOCYTES BY MANUAL COUNT 7 [facility] Comment on above: Performed By: #### L [id number], [id number] ####Patrol Conductor: UNA BERMUDEZPEDRO ([phone])[facility] [place] (SBHLAB)[address] [place] [address] [place] LYMPHOCYTES/100 LEUKOCYTES IN BLOOD-CELLAVISION 7 % Low 15-45 [facility] Comment on above: Performed By: #### L [id number], [id number] ####Patrol Conductor: UNA STAUFFERMELANIE ([id number])[facility] [place] (SBHLAB)[address] [place] [address] [place] METAMYELOCYTES TOTAL PER COUNTED LEUKOCYTES BY MANUAL COUNT [facility] Comment on above: Performed By: #### L [id number], [id number] ####Patrol Conductor: UNA STAUFFERMELANIE ([id number])[facility] [place] (SBHLAB)[address] [place] [address] [place] MONOCYTES (10*3/UL) IN BLOOD-CELLAVISION 2.0 10*3/uL High 0.0-0.9 [facility] Comment on above: Performed By: #### L [id number], [id number] ####Patrol Conductor: UNA STAUFFERMELANIE ([phone])[facility] [place] (SBHLAB)[address] [place] [address] [place] MONOCYTES TOTAL PER COUNTED LEUKOCYTES BY MANUAL COUNT 19 [facility] Comment on above: Performed By: #### L [id number], [id number] ####Patrol Conductor: UNA ARCE ([id number])[facility] [place] (SBHLAB)[address] [place] [address] [place] MONOCYTES/100 LEUKOCYTES IN BLOOD-LUCIANA 18 % High 5-13 [facility] Comment on above: Performed By: #### L [id number], [id number] ####Patrol Conductor: UNA ARCE ([id number])[facility] [place] (SBHLAB)[address] [place] [address] [place] MYELOCYTES COUNTED BY MANUAL COUNT [facility] Comment on above: Performed By: #### L [id number], [id number] ####Patrol Conductor: UNA ARCE ([id number])[facility] [place] (SBHLAB)[address] NEUTROPHILS TOTAL PER COUNTED LEUKOCYTES BY MANUAL COUNT 77 Normal [facility] Comment on above: Performed By: #### L [id number], [id number] ####Patrol Conductor: UNA STAUFFERMELANIE ([id number])[facility] [place] (SBHLAB)[address] [place] [address] [place] POIKILOCYTOSIS (PRESENCE) IN BLOOD BY LIGHT MICROSCOPY Slight Abnormal (none) [facility] Comment on above: Performed By: #### L [id number], [id number] ####Patrol Conductor: UNA ARCE ([id number])[facility] [place] (SBHLAB)[address] [place] [address] [place] POLYCHROMASIA IN BLOOD BY LIGHT MICROSCOPY Slight Abnormal (none) [facility] Comment on above: Performed By: #### L [id number], [id number] ####Patrol Conductor: UNA ARCE ([id number])[facility] [place] (SBHLAB)[address] [place] [address] [place] PROMYELOCYTES TOTAL PER COUNTED LEUKOCYTES BY MANUAL COUNT [facility] Comment on above: Performed By: #### L [id number], [id number] ####Patrol Conductor: UNA ARCE ([id number])[facility] [place] (SBHLAB)[address] [place] [address] [place] RBC MORPHOLOGY IN BLOOD abnormal Normal [facility] Comment on above: Performed By: #### L SB0223, [id number] ####Patrol Conductor: UNA ARCE ([id number])[facility] (SB[facility])[address] [place] [address] [place] SEGMENTED NEUTROPHILS (10*3/UL) IN BLOOD-CELLAVISION 8.0 10*3/uL High 1.8-7.5 [facility] Comment on above: Performed By: #### L [id number], [id number] ####Patrol Conductor: UNA ARCE ([id number])[facility] (SBHLAB)[address] SEGMENTED NEUTROPHILS/100 LEUKOCYTES-CE 71 % Normal 38-82 [facility] Comment on above: Performed By: #### L [id number], [id number] ####Patrol Conductor: UNA ARCE ([id number])[facility] (SBHLAB)[address] STOMATOCYTES IN BLOOD BY LIGHT MICROSCOPY Moderate Abnormal (none) [facility] Comment on above: Performed By: #### L [id number], [id number] ####Patrol Conductor: UNA ARCE ([id number])[facility] [place] (SBHLAB)[address] UNCLASSIFIED CELLS TOTAL PER COUNTED LEUKOCYTES BY MANUAL COUNT Normal [facility] Comment on above: Performed By: #### L [id number], [id number] ####Patrol Conductor: UNA ARCE ([id number])[facility] [place] (SBHLAB)[address] VARIANT LYMPHOCYTES TOTAL PER COUNTED LEUKOCYTES BY MANUAL COUNT Normal [facility] Comment on above: Performed By: #### L [id number], [id number] ####Patrol Conductor: UNA ARCE ([id number])[facility] (SBHLAB)[address] [place] [address] [place] Magnesium [Mass/Vol]on 04-09 [facility] No Panel Informationon 04-09 [facility] Interpretation and review of laboratory results Abnormal [facility] Interpretation and review of laboratory results Abnormal [facility] Interpretation and review of laboratory results Normal [facility] Eosinophils Manual 5 High 0 - 1 [facility] Lymphocytes Manual 7 [facility] Monocytes Manual 19 [facility] Neutrophils Manual 77 [facility] No Panel InformationOrdered By: Anne Miles on 04-09-2025 [facility] No Panel InformationOrdered By: Kyara Valles on 04-09-2025 Interpretation and review of laboratory results Abnormal [facility] No Panel InformationOrdered By: Jg Sarabia on 04-09-2025 Interpretation and review of laboratory results Abnormal [facility] Nursing Noteon 04-09-2025 Nursing Note R thoracentesis complete pt tolerated well with minimal discomfort Normal [facility] Nursing Note L thoracentesis complete per Dr Lewis. Pt tolerated well with minimal discomfort Normal [facility] PH, BODY FLUIDon 04-09-2025 pH (Body fld) 7.747 [pH] Normal [facility] Comment on above: Performed By: #### L AB110, APR390, WNN195, PTJ513 ####Patrol Conductor: ANAHY AVILA ([id number])[address] pH (Body fld) 7.688 [pH] Normal [facility] Comment on above: Performed By: #### L AB188, EDD874, JUL975, ODN100 ####Patrol Conductor: ANAHY AVILA ([phone])[facility])[address] [place] [address] PHOSPHORUSon 04-09-2025 Phosphate [Mass/Vol] 3.5 mg/dL Normal 2.3-4.7 [facility] Comment on above: Performed By: #### L AB103, BUU133, LAB17 ####Patrol Conductor: UNA ARCE ([phone])[facility] (SBHLAB)[address] PROTEIN BODY FLUIDon 025 PROTEIN, BODY FLUID 2.3 g/dL Normal [facility] Comment on above: Performed By: #### L AB110, WGG149, CTA678, JCB256 ####Patrol Conductor: ANAHY AVILA ([id number])[facility] ([facility])[address] [place] [address] [place] PROTEIN, BODY FLUID 2.5 g/dL Normal [facility] Comment on above: Performed By: #### L AB188, [id number], UOO294, [id number] ####Patrol Conductor: ANAHY AVILA ([id number])[facility] ([facility])[address] [place] [address] [place] Phosphate [Moles/Vol]on Phosphate [Mass/Vol] 3.5 mg/dL 2.3 - 4 .7 mg/dL [facility] Progress Noteon 04-09-2025 Progress Note Normal [facility] Progress Note Normal [facility] Progress Note Normal [facility] Progress Note Normal [facility] Progress Note Normal [facility] TOTAL PROTEINon 04-09-2025 Protein [Mass/Vol] 5.9 g/dL Low 6.4-8.3 [facility] Comment on above: Result Comment: Seru m protein values are higher than plasma values. Samples from recumbent persons are lower by up to 0.5 g/dL as compared to ambulatory persons. After 60 years values are lower by up to 0.2 g/dL. Performed By: #### L AB118, LAB96 ####Patrol Conductor: UNA ARCE ([id number])[facility] [place] (SBHLAB)[address] XR CHEST 1 VIEWon 04-09-2025 XR CHEST 1 VIEW Normal [facility] XR Chest Single viewon 04-09 [facility] RADIOLOGY SYSTEM [facility] Radiology Study observation (narrative) [facility] RADIOLOGY SYSTEM [facility] Radiology Study observation (narrative) [facility] RADIOLOGY SYSTEM [facility] Radiology Study observation (narrative) Lynette [place] XR Chest Single viewOrdered By: Gary Kay on 04-09-2025 [facility] Work Phone: XR Chest Single viewOrdered By: Sis Collins on 04-09-2025 [facility] Phone: XR Chest Single viewOrdered By: Kev Mattson on 04-09-2025 [facility] Phone: [phone] 04-08-2025 [id number] Attempted to insert garcía. Urojet injected. Unable to visualize meatus. Attempted x1 to insert garcía without success. Normal [facility] [id number] Normal [facility] [id number] 04-08-2025 [id number] Normal [facility] BLOOD GAS ARTERIALon 025 AMOUNT OF OXYGEN .40 Normal [facility] Comment on above: Performed By: #### L AB76 ####Patrol Conductor: UNA ARCE ([id number])[facility])[address] [place] [address] Base excess Calc (Bld) [Moles/Vol] 11.2 mmol/L High -3.0-3.0 [facility] Comment on above: Performed By: #### L AB76 ####Patrol Conductor: UNA ARCE ([id number])[facility] (SB[facility])[address] [place] [address] [place] CO2 [Moles/Vol] 41.2 mmol/L High 22.0-28.0 [facility] Comment on above: Performed By: #### L AB76 ####Patrol Conductor: UNA ARCE ([id number])[facility] (SBAB)[address] [place] [address] [place] HCO3 (Bld) [Moles/Vol] 38.9 mmol/L High 21.0-27.0 [facility] Comment on above: Performed By: #### L AB76 ####Patrol Conductor: UNA ARCE ([id number])[facility] [place] (SB[facility])[address] Hemoglobin (Bld) [Mass/Vol] 8.4 g/dL Low Screen only [facility] Comment on above: Performed By: #### L AB76 ####Patrol Conductor: UNA ARCE ([id number])[facility] (SBHLAB)[address] OXYGEN SATURATION (%) IN ARTERIAL BLOOD 97.0 % Normal 97.0-99.0 [facility] Comment on above: Performed By: #### L AB76 ####Patrol Conductor: UNA ARCE ([id number])[facility] [place] (SB[facility])[address] PCO2 ARTERIAL 75.1 mm Hg High 35.0-48.0 [facility] Comment on above: Performed By: #### L AB76 ####Patrol Conductor: UNA ARCE ([id number])[facility] ([facility])[address] PH ARTERIAL 7.332 Low 7.350-7.450 [facility] Comment on above: Performed By: #### L AB76 ####Patrol Conductor: UNA ARCE ([id number])[facility] ([facility])[address] PO2 ARTERIAL 104.0 mm Hg Normal 83.0-108.0 [facility] Comment on above: Performed By: #### L AB76 ####Patrol Conductor: UNA ARCE ([phone])[facility] (SBHL[facility])[address] SOURCE OF OXYGEN Non-Invasive Ventilator Normal [facility] Comment on above: Performed By: #### L AB76 ####Patrol Conductor: UNA ARCE ([phone])[facility] (SBHLAB)[address] [place] [address] [place] AMOUNT OF OXYGEN 4 liters Normal [facility] Comment on above: Performed By: #### L AB76 ####Patrol Conductor: UNA ARCE ([id number])[facility] [place] (SBHLAB)[address] Base excess Calc (Bld) [Moles/Vol] 9.9 mmol/L High -3.0-3.0 [facility] Comment on above: Performed By: #### L AB76 ####Patrol Conductor: UNA ARCE ([id number])[facility] [place] (SBHLAB)[address] CO2 [Moles/Vol] 40.6 mmol/L High 22.0-28.0 [facility] Comment on above: Performed By: #### L AB76 ####Patrol Conductor: UNA ARCE ([phone])[facility] [place] (SBHLAB)[address] HCO3 (Bld) [Moles/Vol] 38.2 mmol/L High 21.0-27.0 [facility] Comment on above: Performed By: #### L AB76 ####Patrol Conductor: UNA ARCE ([id number])[facility] [place] (SBHLAB)[address] Hemoglobin (Bld) [Mass/Vol] 8.6 g/dL Low Screen only [facility] Comment on above: Performed By: #### L AB76 ####Patrol Conductor: UNA ARCE ([phone])[facility] [place] (SBHLAB)[address] [place] [address] [place] OXYGEN SATURATION (%) IN ARTERIAL BLOOD 96.1 % Low 97.0-99.0 [facility] Comment on above: Performed By: #### L AB76 ####Patrol Conductor: UNA ARCE ([id number])[facility] [place] (SBHLAB)[address] [place] [address] [place] PCO2 ARTERIAL 80.1 mm Hg Critically high 35.0-48.0 [facility] Comment on above: Performed By: #### L AB76 ####Patrol Conductor: UNA ARCE ([id number])[facility] [place] ([facility] PH ARTERIAL 7.296 Low 7.350-7.450 [facility] Comment on above: Performed By: #### L AB76 ####Patrol Conductor: UNA ARCE ([id number])[facility] [place] (SBAB)[address] PO2 ARTERIAL 92.0 mm Hg Normal 83.0-108.0 [facility] Comment on above: Performed By: #### L AB76 ####Patrol Conductor: UNA ARCE ([phone])[facility]ITALAngel S[facility]HEZCIBOL[facility]PITALMarisol ([facility])[address] SOURCE OF OXYGEN Nasal Cannula (LPM) Normal [facility] Comment on above: Performed By: #### L AB76 ####Patrol Conductor: UNA ARCE ([id number])[facility] [place] ([facility])[address] CBC W Auto Differential pane l (Bld)on 04-08-2025 Erythrocyte distribution width (RBC) [Ratio] 21.1 % High 11.5 - 15.0 % [facility] Hematocrit (Bld) [Volume fraction] 25.9 % Low 40.0 - 52.0 % [facility] Hemoglobin (Bld) [Mass/Vol] 7.2 g/dL Low 13.0 - 18.0 g/dL [facility] MCH (RBC) [Entitic mass] 22.3 pg Low 26. 0 - 34.0 pg [facility]. MCHC (RBC) [Mass/Vol] 27.8 % Low 30.5 - 36.0 % [facility] MCV (RBC) [Entitic vol] 80.2 fL 77.0 - 99.0 fL [facility]. Platelet mean volume (Bld) [Entitic vol] 9.9 fL 9.0 - 12.7 fL [facility] Platelets (Bld) [#/Vol] 314 10*3/uL 140 - 440 10*3/uL [facility] RBC (Bld) [#/Vol] 3.23 10*6/uL Low 4.40 - 5.9 0 10*6/uL [facility] WBC (Bld) [#/Vol] 13 10*3/uL High 3.6 - 10.7 10*3/uL [facility] CBC WITH AUTO DIFFERENTIALon 04-08-2025 Erythrocyte distribution width (RBC) [Ratio] 21.1 % High 11.5-15.0 [facility] Comment on above: Performed By: #### L [id number], [id number] ####Patrol Conductor: UNA ARCE ([phone])[facility] (SBAB)[address] [place] [address] Hematocrit (Bld) [Volume fraction] 25.9 % Low 40.0-52.0 [facility] Comment on above: Performed By: #### L [id number], [id number] ####Patrol Conductor: UNA ARCE ([id number])[facility] (SBAB)[address] [place] [address] Hemoglobin (Bld) [Mass/Vol] 7.2 g/dL Low 13.0-18.0 [facility] Comment on above: Performed By: #### L [id number], [id number] ####Patrol Conductor: UNA ARCE ([id number])[facility] (SBHLAB)[address] [place] [address] MCH (RBC) [Entitic mass] 22.3 pg Low 26.0-34.0 [facility] Comment on above: Performed By: #### L [id number], [id number] ####Patrol Conductor: UNA ARCE ([id number])[facility] (SBHLAB)[address] MCHC 27.8 % Low 30.5-36.0 [facility] Comment on above: Performed By: #### L [id number], [id number] ####Patrol Conductor: UNA ARCE ([id number])[facility] ([facility] MCV (RBC) [Entitic vol] 80.2 fL Normal 77.0-99.0 [facility] Comment on above: Performed By: #### L [id number], [id number] ####Patrol Conductor: UNA ARCE ([id number])[facility] [place] (SBHLAB)[address] Platelet mean volume (Bld) [Entitic vol] 9.9 fL Normal 9.0-12.7 [facility] Comment on above: Performed By: #### L RO6475, [id number] ####Patrol Conductor: UNA ARCE ([id number])[facility]ITAL[facility] (SBHLAB)[address] Platelets (Bld) [#/Vol] 314 10*3/uL Normal 140-440 [facility] Comment on above: Performed By: #### L [id number], [id number] ####Patrol Conductor: UNA ARCE ([id number])[facility] (SBHLAB)[address] RBC (Bld) [#/Vol] 3.23 10*6/uL Low 4.40-5.90 [facility] Comment on above: Performed By: #### L [id number], [id number] ####Patrol Conductor: UNA ARCE ([id number])[facility] (SBHLAB)[address] WBC (Bld) [#/Vol] 13.0 10*3/uL High 3.6-10.7 [facility] Comment on above: Performed By: #### L [id number], [id number] ####Patrol Conductor: UNA ARCE ([id number])[facility] [place] (SBHLAB)[address] COMPREHENSIVE METABOLIC PANE Anant 04-08-2025 Albumin [Mass/Vol] 2.4 g/dL Low 3.4-4.8 [facility] Comment on above: Performed By: #### L AB103, LAB17 ####Patrol Conductor: UNA ARCE ([id number])[facility] [place] (SBHLAB)[address] ALP [Catalytic activity/Vol] 57 U/L Normal 40-150 [facility] Comment on above: Performed By: #### L AB103, LAB17 ####Patrol Conductor: UNA ARCE ([id number])[facility] [place] (SBHLAB)[address] ALT [Catalytic activity/Vol] U/L Normal <40 [facility] Comment on above: Performed By: #### L AB103, LAB17 ####Patrol Conductor: UNA ARCE ([id number])[facility] (SB[facility]AB)[address] Anion gap [Moles/Vol] 10 mmol/L Normal 3-13 [facility] Comment on above: Performed By: #### L AB103, LAB17 ####Patrol Conductor: UNA ARCE ([id number])[facility] (SB[facility]AB)[address] AST [Catalytic activity/Vol] 21 U/L Normal <34 [facility] Comment on above: Performed By: #### L AB103, LAB17 ####Patrol Conductor: UNA ARCE ([id number])[facility] (SB[facility])[address] Bilirubin [Mass/Vol] 0.6 mg/dL Normal <1.2 [facility] Comment on above: Performed By: #### L AB103, LAB17 ####Patrol Conductor: UNA ARCE ([id number])[facility] (SB[facility]AB)[address] Calcium [Mass/Vol] 7.9 mg/dL Low 8.8-10.0 [facility] Comment on above: Performed By: #### L AB103, LAB17 ####Patrol Conductor: UNA ARCE ([id number])[facility] [place] (SBHLAB)[address] [place] [address] [place] Chloride [Moles/Vol] 99 mmol/L Normal 98-107 [facility] Comment on above: Performed By: #### L AB103, LAB17 ####Patrol Conductor: UNA ARCE ([id number])[facility] [place] (SBHLAB)[address] CO2 [Moles/Vol] 33 mmol/L High 23-31 [facility] Comment on above: Performed By: #### L AB103, LAB17 ####Patrol Conductor: UNA ARCE ([id number])[facility] [place] (SBHLAB)[address] Creatinine [Mass/Vol] 1.78 mg/dL High 0.72-1.25 [facility] Comment on above: Performed By: #### L AB103, LAB17 ####Patrol Conductor: UNA ARCE ([id number])[facility] [place] (SBHLAB)[address] [place] [address] [place] GLOMERULAR FILTRATION RATE ML/MIN/1.73 SQ M.PREDICTED 36.0 mL/min/1.73m*2 Low >60.0 [facility] Comment on above: Result Comment: Calc ulation based on the Chronic Kidney Disease Epidemiology Collaboration (CKD-EPI) equation refit without adjustment for race Performed By: #### L AB103, LAB17 ####Patrol Conductor: UNA ARCE ([phone])[facility] [place] (SBHLAB)[address] [place] [address] [place] Glucose [Mass/Vol] 99 mg/dL Normal 82-115 [facility] Comment on above: Performed By: #### L AB103, LAB17 ####Patrol Conductor: UNA ARCE ([id number])[facility] [place] (SBHLAB)[address] [place] [address] [place] Potassium [Moles/Vol] 3.4 mmol/L Low 3.5-5.1 [facility] Comment on above: Result Comment: [facility] potassium values may be up to 0.5 mmol/L lower than serum values. Performed By: #### L AB103, LAB17 ####Patrol Conductor: UNA ARCE ([id number])[facility] ([facility])[address] Protein [Mass/Vol] 5.8 g/dL Low 6.4-8.3 [facility] Comment on above: Performed By: #### L AB103, LAB17 ####Patrol Conductor: UNA ARCE ([id number])[facility] ([facility])[address] Sodium [Moles/Vol] 142 mmol/L Normal 136-145 [facility] Comment on above: Performed By: #### L AB103, LAB17 ####Patrol Conductor: UNA ARCE ([id number])[facility] [place] (SBHLAB)[address] Urea nitrogen [Mass/Vol] 26 mg/dL High 9-23 [facility] Comment on above: Performed By: #### L AB103, LAB17 ####Patrol Conductor: UNA ARCE ([id number])[facility] (SBHLAB)[address] Comprehensive metabolic 1998 panelon 04-08-2025 Albumin [Mass/Vol] 2.4 g/dL Low 3.4 - 4.8 g/dL [facility] ALP [Catalytic activity/Vol] 57 U/L 40 - 150 U/L [facility] ALT [Catalytic activity/Vol] U/L NINF - 40 U/L [facility] Anion gap [Moles/Vol] 10 mmol/L 3 - 13 mmol/L [facility] AST [Catalytic activity/Vol] 21 U/L NINF - 34 U/L [facility] Bilirubin [Mass/Vol] 0.6 mg/dL NINF - 1.2 mg/dL [facility] Calcium [Mass/Vol] 7.9 mg/dL Low 8.8 - 10. 0 mg/dL [facility] Chloride [Moles/Vol] 99 mmol/L 98 - 10 7 mmol/L [facility] CO2 [Moles/Vol] 33 mmol/L High 23 - 31 mmol/L [facility] Creatinine [Mass/Vol] 1.78 mg/dL High 0.72 - 1.25 mg/dL [facility] GFR/1.73 sq M.predicted (S/P/Bld) [Vol rate/Area] 36 mL/min Low - PINF [facility] Glucose [Mass/Vol] 99 mg/dL 82 - 115 mg/dL [facility] Interpretation and review of laboratory results Abnormal [facility] Potassium [Moles/Vol] 3.4 mmol/L Low 3.5 - 5.1 mmol/L [facility] Protein [Mass/Vol] 5.8 g/dL Low 6.4 - 8.3 g/dL [facility] Sodium [Moles/Vol] 142 mmol/L 136 - 145 mmol/L [facility] Urea nitrogen [Mass/Vol] 26 mg/dL High 9 - 23 mg/d L [facility] Consulton 04-08-2025 Consult Normal [facility] Laboratory - Chemistry and C hemistry - challengeOrdered By: Renay Chan on 04-08-2025 Base excess Calc (Bld) [Moles/Vol] 11.2 mmol/L High -3.0 - 3.0 mmol/L [facility] CO2 (Bld) [Partial pressure] 75.1 mm[Hg] High [facility] CO2 [Moles/Vol] 41.2 mmol/L High 22.0 - 28.0 mmol/L [facility] HCO3 (Bld) [Moles/Vol] 38.9 mmol/L High 21.0 - 27.0 mmol/L [facility] Oxygen (Bld) [Partial pressure] 104 mm[Hg] [facility] pH (Bld) 7.332 [pH] Low 7.350 - 7.450 [facility] - Chemistry and C hemistry - challengeOrdered By: Sallie Powell on 04-08-2025 Base excess Calc (Bld) [Moles/Vol] 9.9 mmol/L High -3.0 - 3.0 mmol/L [facility] CO2 (Bld) [Partial pressure] 80.1 mm[Hg] Critically high [facility] CO2 [Moles/Vol] 40.6 mmol/L High 22.0 - 28.0 mmol/L [facility] HCO3 (Bld) [Moles/Vol] 38.2 mmol/L High 21.0 - 27.0 mmol/L [facility] Oxygen (Bld) [Partial pressure] 92 mm[Hg] [facility] pH (Bld) 7.296 [pH] Low 7.350 - 7.450 [facility] - Chemistry and C hemistry - challengeon 04-08-2025 Glucose [Mass/Vol] 100 mg/dL 70 - 100 mg/dL [facility] Magnesium [Mass/Vol] 1.6 mg/dL 1.6 - 2 .6 mg/dL [facility] - Hematology and Cell countsOrdered By: Renay Chan on 04-08-2025 Hemoglobin (Bld) [Mass/Vol] 8.4 g/dL Low 13.5 - 17.5 g/dl [facility] - Hematology and Cell countsOrdered By: Sallie Powell on 04-08-2025 Hemoglobin (Bld) [Mass/Vol] 8.6 g/dL Low 13.5 - 17.5 g/dl [facility] - Hematology and Cell countson 04-08-2025 Anisocytosis Ql (Bld) Moderate Abnormal (none) [facility] Basophils (Bld) [#/Vol] 0.1 10*3/uL 0.0 - 0.2 10*3/uL [facility] Basophils/100 WBC (Bld) 1 % 0 - 2 % [facility] Hypochromia Ql (Bld) Moderate Abnormal (none) [facility] Lymphocytes (Bld) [#/Vol] 1.8 10*3/uL 1.0 - 4.3 10*3/uL [facility] Lymphocytes/100 WBC (Bld) 14 % Low 15 - 45 % [facility] Monocytes (Bld) [#/Vol] 1.6 10*3/uL High 0.0 - 0.9 10*3/uL [facility] Monocytes/100 WBC (Bld) 12 % 5 - 13 % [facility] Neutrophils (Bld) [#/Vol] 9.6 10*3/uL High 1.8 - 7.5 10*3/uL [facility] Ovalocytes LM Ql (Bld) Slight Abnormal (none) [facility] Poikilocytosis LM Ql (Bld) Moderate Abnormal (none) [facility] RBC morphology finding Nom (Bld) abnormal [facility] Segmented neutrophils/100 WBC (Bld) 74 % 38 - 82 % [facility] Stomatocytes LM Ql (Bld) Moderate Abnormal (none) [facility] MAGNESIUMon 04-08-2025 Magnesium [Mass/Vol] 1.6 mg/dL Normal 1.6-2.6 [facility] Comment on above: Result Comment: YARELI [place] COMMENTS:Higher values can be expected in females during menses. Performed By: #### L AB103, LAB17 ####Patrol Conductor: UNA ARCE ([id number])[facility] [place] (SBAB)[address] [place] [address] MANUAL DIFFERENTIAL (CELLAVI BANDAR)on 04-08-2025 ANISOCYTOSIS PRESENCE IN BLOOD BY LIGHT MICROSCOPY Moderate Abnormal (none) [facility] Comment on above: Performed By: #### L [id number], [id number] ####Patrol Conductor: UNA ARCE ([id number])[facility] ([facility])[address] BAND NEUTROPHILS TOTAL PER COUNTED LEUKOCYTES BY MANUAL COUNT Normal [facility] Comment on above: Performed By: #### L [id number], [id number] ####Patrol Conductor: UNA ARCE ([id number])[facility] (SBAB)[address] BASOPHILS (10*3/UL) IN BLOOD-CELLAVISION 0.1 10*3/uL Normal 0.0-0.2 [facility] Comment on above: Performed By: #### L AT3278, [id number] ####Patrol Conductor: UNA AREC ([id number])[facility] (SB[facility])[address] BASOPHILS TOTAL PER COUNTED LEUKOCYTES BY MANUAL COUNT 1 Normal [facility] Comment on above: Performed By: #### L [id number], [id number] ####Patrol Conductor: UNA ARCE ([id number])[facility] [place] (SBHLAB)[address] [place] [address] [place] BASOPHILS/100 LEUKOCYTES IN BLOOD-CELLAVISION 1 % Normal 0-2 [facility] Comment on above: Performed By: #### L [id number], [id number] ####Patrol Conductor: UNA ARCE ([id number])[facility] [place] (SBHLAB)[address] [place] [address] [place] BLASTS TOTAL PER COUNTED LEUKOCYTES BY MANUAL COUNT Normal [facility] Comment on above: Performed By: #### L [id number], [id number] ####Patrol Conductor: UNA ARCE ([id number])[facility] [place] (SBHLAB)[address] EOSINOPHILS TOTAL PER COUNTED LEUKOCYTES BY MANUAL COUNT Normal [facility] Comment on above: Performed By: #### L [id number], [id number] ####Patrol Conductor: UNA ARCE ([id number])[facility] [place] (SBHLAB)[address] [place] [address] [place] HYPOCHROMIA (PRESENCE) IN BLOOD BY LIGHT MICROSCOPY Moderate Abnormal (none) [facility] Comment on above: Performed By: #### L [id number], [id number] ####Patrol Conductor: UNA YAZMIN ([id number])[facility] [place] (SBHLAB)[address] [place] [address] [place] LYMPHOCYTES (10*3/UL) IN BLOOD-CELLAVISION 1.8 10*3/uL Normal 1.0-4.3 [facility] Comment on above: Performed By: #### L [id number], [id number] ####Patrol Conductor: UNAANJEL ARCE ([id number])[facility] [place] (SBHLAB)[address] [place] [address] [place] LYMPHOCYTES TOTAL PER COUNTED LEUKOCYTES BY MANUAL COUNT 14 Normal [facility] Comment on above: Performed By: #### L [id number], [id number] ####Patrol Conductor: UNA YAZMIN ([id number])[facility] [place] (SBHLAB)[address] [place] [address] [place] LYMPHOCYTES/100 LEUKOCYTES IN BLOOD-CELLAVISION 14 % Low 15-45 [facility] Comment on above: Performed By: #### L [id number], [id number] ####Patrol Conductor: UNA BERMUDEZPEDRO ([id number])[facility] [place] (SBHLAB)[address] [place] [address] [place] METAMYELOCYTES TOTAL PER COUNTED LEUKOCYTES BY MANUAL COUNT Normal [facility] Comment on above: Performed By: #### L [id number], [id number] ####Patrol Conductor: UNA BERMUDEZPEDRO ([id number])[facility] [place] (SBHLAB)[address] [place] [address] [place] MONOCYTES (10*3/UL) IN BLOOD-CELLAVISION 1.6 10*3/uL High 0.0-0.9 [facility] Comment on above: Performed By: #### L [id number], [id number] ####Patrol Conductor: UNA BERMUDEZPEDRO ([id number])[facility] [place] (SBHLAB)[address] [place] [address] [place] MONOCYTES TOTAL PER COUNTED LEUKOCYTES BY MANUAL COUNT 12 Normal [facility] Comment on above: Performed By: #### L SC5399, [id number] ####Patrol Conductor: UNA BERMUDEZPEDRO ([id number])[facility] [place] (SBHLAB)[address] [place] [address] [place] MONOCYTES/100 LEUKOCYTES IN BLOOD-LUCIANA 12 % Normal 5-13 [facility] Comment on above: Performed By: #### L [id number], [id number] ####Patrol Conductor: UNA STAUFFERMELANIE ([id number])[facility] [place] (SBHLAB)[address] [place] [address] [place] MYELOCYTES COUNTED BY MANUAL COUNT Normal [facility] Comment on above: Performed By: #### L [id number], [id number] ####Patrol Conductor: UNA ARCE ([id number])[facility] [place] (SBHLAB)[address] [place] [address] [place] NEUTROPHILS TOTAL PER COUNTED LEUKOCYTES BY MANUAL COUNT 75 Normal [facility] Comment on above: Performed By: #### L VQ5675, [id number] ####Patrol Conductor: UNA ARCE ([id number])[facility] [place] (SBHLAB)[address] [place] [address] [place] OVALOCYTES PRESENCE IN BLOOD BY LIGHT MICROSCOPY Slight Abnormal (none) [facility] Comment on above: Performed By: #### L MD0877, [id number] ####Patrol Conductor: UNA ARCE ([id number])[facility] [place] (SBHLAB)[address] [place] [address] [place] POIKILOCYTOSIS (PRESENCE) IN BLOOD BY LIGHT MICROSCOPY Moderate Abnormal (none) [facility] Comment on above: Performed By: #### L [id number], [id number] ####Patrol Conductor: UNA ARCE ([id number])[facility] [place] (SBHLAB)[address] [place] [address] [place] PROMYELOCYTES TOTAL PER COUNTED LEUKOCYTES BY MANUAL COUNT Normal [facility] Comment on above: Performed By: #### L [id number], [id number] ####Patrol Conductor: UNA ARCE ([id number])[facility] [place] (SBHLAB)[address] [place] [address] [place] RBC MORPHOLOGY IN BLOOD abnormal Normal [facility] Comment on above: Performed By: #### L [id number], [id number] ####Patrol Conductor: UNA ARCE ([id number])[facility] [place] (SBHLAB)[address] [place] [address] [place] SEGMENTED NEUTROPHILS (10*3/UL) IN BLOOD-CELLAVISION 9.6 10*3/uL High 1.8-7.5 [facility] Comment on above: Performed By: #### L [id number], [id number] ####Patrol Conductor: UNA [id number])[facility] [place] (SBHLAB)[address] SEGMENTED NEUTROPHILS/100 LEUKOCYTES-CE 74 % Normal 38-82 [facility] Comment on above: Performed By: #### L [id number], [id number] ####Patrol Conductor: UNA ARCE ([id number])[facility] (SB[facility])[address] STOMATOCYTES IN BLOOD BY LIGHT MICROSCOPY Moderate Abnormal (none) [facility] Comment on above: Performed By: #### L [id number], [id number] ####Patrol Conductor: UNA ARCE ([id number])[facility] ([facility])[address] UNCLASSIFIED CELLS TOTAL PER COUNTED LEUKOCYTES BY MANUAL COUNT Normal [facility] Comment on above: Performed By: #### L [id number], [id number] ####Patrol Conductor: UNA ARCE ([id number])[facility] [place] (SBHLAB)[address] VARIANT LYMPHOCYTES TOTAL PER COUNTED LEUKOCYTES BY MANUAL COUNT Normal [facility] Comment on above: Performed By: #### L [id number], [id number] ####Patrol Conductor: UNA ARCE ([id number])[facility] (SBHLAB)[address] Magnesium [Mass/Vol]on 04-08 Interpretation and review of laboratory results Normal [facility] No Panel InformationOrdered By: Renay Chan on 04-08-2025 Amount Of Oxygen 0.40 [facility] alth Interpretation and review of laboratory results Abnormal [facility] Source Of Oxygen Non-Invasive Ventilator [facility] No Panel InformationOrdered By: Sallie Powell on 04-08-2025 Amount Of Oxygen 4 liters [facility] Interpretation and review of laboratory results Abnormal [facility] Source Of Oxygen Nasal Cannula (LPM) [facility] No Panel Informationon 04-08 Interpretation and review of laboratory results Normal [facility] Basophils Manual 1 [facility] Interpretation and review of laboratory results Abnormal [facility] Lymphocytes Manual 14 [facility] Monocytes Manual 12 [facility] alth Neutrophils Manual 75 [facility] Progress Noteon 04-08-2025 Progress Note Normal [facility] Progress Note Normal [facility] Progress Note Normal [facility] Progress Note Normal [facility] Progress Note Normal [facility] XR Chest Single viewon 04-08 [facility] RADIOLOGY [facility] Radiology Study observation (narrative) Lynette Balderrama alth XR Chest Single viewOrdered By: Nelson Sow on 04-08-2025 [facility] Work Phone: CBC W Auto Differential pane l (Bld)Ordered By: Sharita Beck on 04-07-2025 Erythrocyte distribution width (RBC) [Ratio] 20.5 % High 11.5 - 15.0 % [facility] Hematocrit (Bld) [Volume fraction] 27.2 % Low 40.0 - 52.0 % [facility] Hemoglobin (Bld) [Mass/Vol] 7.4 g/dL Low 13.0 - 18.0 g/dL [facility] MCH (RBC) [Entitic mass] 21.8 pg Low 26. 0 - 34.0 pg [facility] MCHC (RBC) [Mass/Vol] 27.2 % Low 30.5 - 36.0 % [facility] MCV (RBC) [Entitic vol] 80 fL 77.0 - 99.0 fL [facility] Platelet mean volume (Bld) [Entitic vol] 9.8 fL 9.0 - 12.7 fL [facility] Platelets (Bld) [#/Vol] 346 10*3/uL 140 - 440 10*3/uL [facility] RBC (Bld) [#/Vol] 3.4 10*6/uL Low 4.40 - 5.9 0 10*6/uL [facility] WBC (Bld) [#/Vol] 11.5 10*3/uL High 3.6 - 10.7 10*3/uL [facility] CBC WITH AUTO DIFFERENTIALon 04-07-2025 Erythrocyte distribution width (RBC) [Ratio] 20.5 % High 11.5-15.0 [facility] Comment on above: Performed By: #### L [id number], [id number] ####Patrol Conductor: UNA ARCE ([phone])MONISHAA LAURALUIS (SBHLAB)[address] Hematocrit (Bld) [Volume fraction] 27.2 % Low 40.0-52.0 [facility] Comment on above: Performed By: #### L [id number], [id number] ####Patrol Conductor: UNA ARCE ([id number])[facility] [place] (SBHLAB)[address] Hemoglobin (Bld) [Mass/Vol] 7.4 g/dL Low 13.0-18.0 [facility] Comment on above: Performed By: #### L [id number], [id number] ####Patrol Conductor: UNA ARCE ([id number])[facility] [place] (SBHLAB)[address] MCH (RBC) [Entitic mass] 21.8 pg Low 26.0-34.0 [facility] Comment on above: Performed By: #### L [id number], [id number] ####Patrol Conductor: UNA ARCE ([id number])[facility] [place] (SBHLAB)[address] MCHC 27.2 % Low 30.5-36.0 [facility] Comment on above: Performed By: #### L [id number], [id number] ####Patrol Conductor: UNA ARCE ([id number])[facility] [place] (SB[facility]AB)[address] MCV (RBC) [Entitic vol] 80.0 fL Normal 77.0-99.0 [facility] Comment on above: Performed By: #### L [id number], [id number] ####Patrol Conductor: UNA ARCE ([id number])[facility] [place] (SBHLAB)[address] Platelet mean volume (Bld) [Entitic vol] 9.8 fL Normal 9.0-12.7 [facility] Comment on above: Performed By: #### L [id number], [id number] ####Patrol Conductor: UNA ARCE ([id number])LYNETTE ESCOTO (SBHLAB)[address] Platelets (Bld) [#/Vol] 346 10*3/uL Normal 140-440 [facility] Comment on above: Performed By: #### L [id number], [id number] ####Patrol Conductor: UNA ARCE ([id number])[facility] ESCOTO (SBHLAB)[address] RBC (Bld) [#/Vol] 3.40 10*6/uL Low 4.40-5.90 [facility] Comment on above: Performed By: #### L [id number], [id number] ####Patrol Conductor: UNA ARCE ([id number])[facility] BASHIRMarisol (SBHLAB)[address] WBC (Bld) [#/Vol] 11.5 10*3/uL High 3.6-10.7 [facility] Comment on above: Performed By: #### L [id number], [id number] ####Patrol Conductor: UNA ARCE ([id number])[facility] BASHIRMarisol (SBHLAB)[address] COMPREHENSIVE METABOLIC PANE Anant 04-07-2025 Albumin [Mass/Vol] 2.4 g/dL Low 3.4-4.8 [facility] Comment on above: Performed By: #### L AB103, LAB17 ####Patrol Conductor: UNA ARCE ([id number])[facility] BASHIRMarislo (SBHLAB)[address] ALP [Catalytic activity/Vol] 57 U/L Normal 40-150 [facility] Comment on above: Performed By: #### L AB103, LAB17 ####Patrol Conductor: UNA ARCE ([phone])[facility] [place] (SBHLAB)[address] [place] [address] [place] ALT [Catalytic activity/Vol] U/L Normal <40 [facility] Comment on above: Performed By: #### L AB103, LAB17 ####Patrol Conductor: UNA ARCE ([id number])[facility] [place] (SB[facility]AB)[address] Anion gap [Moles/Vol] 14 mmol/L High 3-13 [facility] Comment on above: Performed By: #### L AB103, LAB17 ####Patrol Conductor: UNA ARCE ([id number])[facility] [place] (SBHLAB)[address] AST [Catalytic activity/Vol] 23 U/L Normal <34 [facility] Comment on above: Performed By: #### L AB103, LAB17 ####Patrol Conductor: UNA STAUFFERMELANIE ([id number])[facility] [place] (SBHLAB)[address] Bilirubin [Mass/Vol] 0.7 mg/dL Normal <1.2 [facility] Comment on above: Performed By: #### L AB103, LAB17 ####Patrol Conductor: UNA ARCE ([id number])[facility] [place] (SBHLAB)[address] [place] [address] [place] Calcium [Mass/Vol] 7.9 mg/dL Low 8.8-10.0 [facility] Comment on above: Performed By: #### L AB103, LAB17 ####Patrol Conductor: UNA ARCE ([id number])[facility] [place] (SBHLAB)[address] [place] [address] [place] Chloride [Moles/Vol] 98 mmol/L Normal 98-107 [facility] Comment on above: Performed By: #### L AB103, LAB17 ####Patrol Conductor: UNA ARCE ([id number])[facility] BASHIRN (SBHLAB)[address] [place] [address] [place] CO2 [Moles/Vol] 31 mmol/L Normal 23-31 [facility] Comment on above: Performed By: #### L AB103, LAB17 ####Patrol Conductor: UNA ARCE ([id number])[facility] (SBHLAB)[address] Creatinine [Mass/Vol] 1.63 mg/dL High 0.72-1.25 [facility] Comment on above: Performed By: #### L AB103, LAB17 ####Patrol Conductor: UNA ARCE ([phone])[facility] (SBHLAB)[address] GLOMERULAR FILTRATION RATE ML/MIN/1.73 SQ M.PREDICTED 40.0 mL/min/1.73m*2 Low >60.0 [facility] Comment on above: Result Comment: Calc ulation based on the Chronic Kidney Disease Epidemiology Collaboration (CKD-EPI) equation refit without adjustment for race Performed By: #### L AB103, LAB17 ####Patrol Conductor: UNA ARCE ([phone])[facility] (SBHLAB)[address] Glucose [Mass/Vol] 88 mg/dL Normal 82-115 [facility] Comment on above: Performed By: #### L AB103, LAB17 ####Patrol Conductor: UNA ARCE ([phone])[facility] (SBHLAB)[address] [place] [address] [place] Potassium [Moles/Vol] 3.6 mmol/L Normal 3.5-5.1 [facility] Comment on above: Result Comment: [facility] potassium values may be up to 0.5 mmol/L lower than serum values. Performed By: #### L AB103, LAB17 ####Patrol Conductor: UNA ARCE ([phone])[facility] (SBHLAB)[address] Protein [Mass/Vol] 5.7 g/dL Low 6.4-8.3 [facility] Comment on above: Performed By: #### L AB103, LAB17 ####Patrol Conductor: UNA STAUFFERMELANIE ([phone])[facility] BASHIRN (SBHLAB)[address] Sodium [Moles/Vol] 143 mmol/L Normal 136-145 [facility] Comment on above: Performed By: #### L AB103, LAB17 ####Patrol Conductor: UNA BERMUDEZPEDRO ([phone])[facility] (SBHLAB)[address] Urea nitrogen [Mass/Vol] 26 mg/dL High 9-23 [facility] Comment on above: Performed By: #### Gilbert AB103, LAB17 ####Patrol Conductor: UNA BERMUDEZPEDRO ([phone])[facility] (SBHLAB)[address] Comprehensive metabolic 1998 panelon 04-07-2025 Albumin [Mass/Vol] 2.4 g/dL Low 3.4 - 4.8 g/dL [facility] ALP [Catalytic activity/Vol] 57 U/L 40 - 150 U/L [facility] ALT [Catalytic activity/Vol] U/L NINF - 40 U/L [facility] Anion gap [Moles/Vol] 14 mmol/L High 3 - 13 mmol/L [facility] AST [Catalytic activity/Vol] 23 U/L NINF - 34 U/L [facility] Bilirubin [Mass/Vol] 0.7 mg/dL NINF - 1.2 mg/dL [facility] Calcium [Mass/Vol] 7.9 mg/dL Low 8.8 - 10. 0 mg/dL [facility] Chloride [Moles/Vol] 98 mmol/L 98 - 10 7 mmol/L [facility] CO2 [Moles/Vol] 31 mmol/L 23 - 31 mmol/L [facility] Creatinine [Mass/Vol] 1.63 mg/dL High 0.72 - 1.25 mg/dL [facility] GFR/1.73 sq M.predicted (S/P/Bld) [Vol rate/Area] 40 mL/min Low - PINF [facility] Glucose [Mass/Vol] 88 mg/dL 82 - 115 mg/dL [facility] Interpretation and review of laboratory results Abnormal [facility] Potassium [Moles/Vol] 3.6 mmol/L 3.5 - 5.1 mmol/L [facility] Protein [Mass/Vol] 5.7 g/dL Low 6.4 - 8.3 g/dL [facility] Sodium [Moles/Vol] 143 mmol/L 136 - 145 mmol/L [facility] Urea nitrogen [Mass/Vol] 26 mg/dL High 9 - 23 mg/d L [facility] Consulton 04-07-2025 Consult Normal [facility] Laboratory - Chemistry and C hemistry - challengeon 04-07-2025 Magnesium [Mass/Vol] 1.7 mg/dL 1.6 - 2 .6 mg/dL [facility] Laboratory - Hematology and Cell countson 04-07-2025 Anisocytosis Ql (Bld) Slight Abnormal (none) [facility] Eosinophils (Bld) [#/Vol] 0.3 10*3/uL 0.0 - 0.5 10*3/uL [facility] Eosinophils/100 WBC (Bld) 3 % 0 - 6 % [facility] Hypochromia Ql (Bld) Moderate Abnormal (none) [facility] Lymphocytes (Bld) [#/Vol] 0.9 10*3/uL Low 1.0 - 4.3 10*3/uL [facility] Lymphocytes/100 WBC (Bld) 8 % Low 15 - 45 % [facility] Monocytes (Bld) [#/Vol] 0.8 10*3/uL 0.0 - 0.9 10*3/uL [facility] Monocytes/100 WBC (Bld) 7 % 5 - 13 % [facility] Neutrophils (Bld) [#/Vol] 9.5 10*3/uL High 1.8 - 7.5 10*3/uL [facility] Nucleated RBC/100 WBC (Bld) [Ratio] 1 % 0 - 2 % [facility] Poikilocytosis LM Ql (Bld) Slight Abnormal (none) [facility] RBC morphology finding Nom (Bld) abnormal [facility] Segmented neutrophils/100 WBC (Bld) 83 % High 38 - 82 % [facility] Stomatocytes LM Ql (Bld) Moderate Abnormal (none) [facility] MAGNESIUMon 04-07-2025 Magnesium [Mass/Vol] 1.7 mg/dL Normal 1.6-2.6 [facility] Comment on above: Result Comment: YARELI R COMMENTS:Higher values can be expected in females during menses. Performed By: #### L AB103, LAB17 ####Patrol Conductor: UNA ARCE ([id number])[facility] [place] (SBHLAB)[address] MANUAL DIFFERENTIAL (CELLAVI BANDAR)on 04-07-2025 ANISOCYTOSIS PRESENCE IN BLOOD BY LIGHT MICROSCOPY Slight Abnormal (none) [facility] Comment on above: Performed By: #### L [id number], [id number] ####Patrol Conductor: UNA ARCE ([id number])[facility] [place] (SBHLAB)[address] BAND NEUTROPHILS TOTAL PER COUNTED LEUKOCYTES BY MANUAL COUNT Normal [facility] Comment on above: Performed By: #### L [id number], [id number] ####Patrol Conductor: UNA ARCE ([id number])[facility] [place] (SBHLAB)[address] BASOPHILS TOTAL PER COUNTED LEUKOCYTES BY MANUAL COUNT Normal [facility] Comment on above: Performed By: #### L [id number], [id number] ####Patrol Conductor: UNA ARCE ([id number])[facility] [place] (SB[facility]AB)[address] BLASTS TOTAL PER COUNTED LEUKOCYTES BY MANUAL COUNT Normal [facility] Comment on above: Performed By: #### L [id number], [id number] ####Patrol Conductor: UNA ARCE ([id number])[facility] [place] (SB[facility])[address] EOSINOPHILS (10*3/UL) IN BLOOD-CELLAVISION 0.3 10*3/uL Normal 0.0-0.5 [facility] Comment on above: Performed By: #### L [id number], [id number] ####Patrol Conductor: UNA STAUFFERMELANIE ([phone])[facility] [place] (SBHLAB)[address] [place] [address] [place] EOSINOPHILS TOTAL PER COUNTED LEUKOCYTES BY MANUAL COUNT 3 High 0-1 [facility] Comment on above: Performed By: #### L [id number], [id number] ####Patrol Conductor: UNA YAZMIN ([id number])[facility] [place] (SBHLAB)[address] [place] [address] [place] EOSINOPHILS/100 LEUKOCYTES IN BLOOD-CELLAVISION 3 % Normal 0-6 [facility] Comment on above: Performed By: #### L [id number], [id number] ####Patrol Conductor: UNA BERMUDEZPEDRO ([phone])[facility] [place] (SBHLAB)[address] [place] [address] [place] HYPOCHROMIA (PRESENCE) IN BLOOD BY LIGHT MICROSCOPY Moderate Abnormal (none) [facility] Comment on above: Performed By: #### L [id number], [id number] ####Patrol Conductor: UNA BERMUDEZPEDRO ([id number])[facility] [place] (SBHLAB)[address] [place] [address] [place] LYMPHOCYTES (10*3/UL) IN BLOOD-CELLAVISION 0.9 10*3/uL Low 1.0-4.3 [facility] Comment on above: Performed By: #### L [id number], [id number] ####Patrol Conductor: UNA BERMUDEZPEDRO ([id number])[facility] [place] (SBHLAB)[address] [place] [address] [place] LYMPHOCYTES TOTAL PER COUNTED LEUKOCYTES BY MANUAL COUNT 8 Normal [facility] Comment on above: Performed By: #### L [id number], [id number] ####Patrol Conductor: UNA BERMUDEZPEDRO ([phone])[facility] [place] (SBHLAB)[address] [place] [address] [place] LYMPHOCYTES/100 LEUKOCYTES IN BLOOD-CELLAVISION 8 % Low 15-45 [facility] Comment on above: Performed By: #### L [id number], [id number] ####Patrol Conductor: UNA STAUFFERMELANIE ([phone])[facility] [place] (SBHLAB)[address] [place] [address] [place] METAMYELOCYTES TOTAL PER COUNTED LEUKOCYTES BY MANUAL COUNT Normal [facility] Comment on above: Performed By: #### L [id number], [id number] ####Patrol Conductor: UNA STAUFFERMELANIE ([id number])[facility] [place] (SBHLAB)[address] [place] [address] [place] MONOCYTES (10*3/UL) IN BLOOD-CELLAVISION 0.8 10*3/uL Normal 0.0-0.9 [facility] Comment on above: Performed By: #### L [id number], [id number] ####Patrol Conductor: UNA ARCE ([id number])[facility] [place] (SBHLAB)[address] [place] [address] [place] MONOCYTES TOTAL PER COUNTED LEUKOCYTES BY MANUAL COUNT 7 Normal [facility] Comment on above: Performed By: #### L [id number], [id number] ####Patrol Conductor: UNA BERMUDEZPEDRO ([phone])[facility] [place] (SBHLAB)[address] [place] [address] [place] MONOCYTES/100 LEUKOCYTES IN BLOOD-LUCIANA 7 % Normal 5-13 [facility] Comment on above: Performed By: #### L [id number], [id number] ####Patrol Conductor: UNA STAUFFERMELANIE ([phone])[facility] [place] (SBHLAB)[address] [place] [address] [place] MYELOCYTES COUNTED BY MANUAL COUNT Normal [facility] Comment on above: Performed By: #### L [id number], [id number] ####Patrol Conductor: UNA ARCE ([phone])[facility] [place] (SBHLAB)[address] [place] [address] [place] NEUTROPHILS TOTAL PER COUNTED LEUKOCYTES BY MANUAL COUNT 86 Normal [facility] Comment on above: Performed By: #### L [id number], [id number] ####Patrol Conductor: UNA ARCE ([id number])[facility] [place] (SBHLAB)[address] [place] [address] [place] NUCLEATED ERYTHROCYTES/100 LEUKOCTES IN BLOOD-CELLAVISION 1 % Normal 0-2 [facility] Comment on above: Performed By: #### L [id number], [id number] ####Patrol Conductor: UNA ARCE ([phone])[facility] [place] (SB[facility]AB)[address] [place] [address] [place] POIKILOCYTOSIS (PRESENCE) IN BLOOD BY LIGHT MICROSCOPY Slight Abnormal (none) [facility] Comment on above: Performed By: #### L [id number], [id number] ####Patrol Conductor: UNA ARCE ([id number])[facility] [place] (SB[facility])[address] PROMYELOCYTES TOTAL PER COUNTED LEUKOCYTES BY MANUAL COUNT Normal [facility] Comment on above: Performed By: #### L [id number], [id number] ####Patrol Conductor: UNA ARCE ([id number])[facility] [place] (SB[facility])[address] [place] [address] [place] RBC MORPHOLOGY IN BLOOD abnormal Normal [facility] Comment on above: Performed By: #### L [id number], [id number] ####Patrol Conductor: UNA ARCE ([id number])[facility] [place] (SBHLAB)[address] [place] [address] [place] SEGMENTED NEUTROPHILS (10*3/UL) IN BLOOD-CELLAVISION 9.5 10*3/uL High 1.8-7.5 [facility] Comment on above: Performed By: #### L [id number], [id number] ####Patrol Conductor: UNA ARCE ([id number])[facility] [place] (SB[facility]AB)[address] [place] [address] [place] SEGMENTED NEUTROPHILS/100 LEUKOCYTES-CE 83 % High 38-82 [facility] Comment on above: Performed By: #### L [id number], [id number] ####Patrol Conductor: UNA ARCE ([id number])[facility] [place] ([facility])[address] STOMATOCYTES IN BLOOD BY LIGHT MICROSCOPY Moderate Abnormal (none) [facility] Comment on above: Performed By: #### L [id number], [id number] ####Patrol Conductor: UNA ARCE ([id number])[facility] [place] (SB[facility])[address] UNCLASSIFIED CELLS TOTAL PER COUNTED LEUKOCYTES BY MANUAL COUNT Normal [facility] Comment on above: Performed By: #### L [id number], [id number] ####Patrol Conductor: UNA ARCE ([id number])[facility] (SBHLAB)[address] VARIANT LYMPHOCYTES TOTAL PER COUNTED LEUKOCYTES BY MANUAL COUNT Normal [facility] Comment on above: Performed By: #### L [id number], [id number] ####Patrol Conductor: UNA STAUFFERMELANIE ([id number])[facility] (SBHLAB)[address] Magnesium [Mass/Vol]on 04-07 Interpretation and review of laboratory results Normal [facility] No Panel Informationon 04-07 Eosinophils Manual 3 High 0 - 1 [facility] Lymphocytes Manual 8 [facility] Monocytes Manual 7 [facility] Neutrophils Manual 86 [facility] No Panel InformationOrdered By: Sharita Beck on 04-07-2025 Interpretation and review of laboratory results Abnormal [facility] Progress Noteon 04-07-2025 Progress Note [facility] Normal [facility] Progress Note Normal [facility] Progress Note Normal [facility] Progress Note Normal [facility] [id number] 04-06-2025 [id number] Normal [facility] CBC W Auto Differential pane l (Bld)Ordered By: Annmarie Zuñiga on 04-06-2025 Hematocrit (Bld) [Volume fraction] 27.2 % Low 40.0 - 52.0 % [facility] Hemoglobin (Bld) [Mass/Vol] 7.6 g/dL Low 13.0 - 18.0 g/dL [facility] MCH (RBC) [Entitic mass] 22 pg Low 26. 0 - 34.0 pg [facility] MCV (RBC) [Entitic vol] 78.6 fL 77.0 - 99.0 fL [facility] RBC (Bld) [#/Vol] 3.46 10*6/uL Low 4.40 - 5.9 0 10*6/uL [facility] CBC WITH AUTO DIFFERENTIALon 04-06-2025 Erythrocyte distribution width (RBC) [Ratio] 20.5 % High 11.5-15.0 [facility] Comment on above: Performed By: #### L [id number], [id number] ####Patrol Conductor: UNA ARCE ([id number])[facility] ([facility])[address] [place] [address] Hematocrit (Bld) [Volume fraction] 27.2 % Low 40.0-52.0 [facility] Comment on above: Performed By: #### L [id number], [id number] ####Patrol Conductor: UNA ARCE ([id number])[facility] ([facility])[address] [place] [address] Hemoglobin (Bld) [Mass/Vol] 7.6 g/dL Low 13.0-18.0 [facility] Comment on above: Performed By: #### L [id number], [id number] ####Patrol Conductor: UNA ARCE ([id number])[facility] MCH (RBC) [Entitic mass] 22.0 pg Low 26.0-34.0 [facility] Comment on above: Performed By: #### L [id number], [id number] ####Patrol Conductor: UNA ARCE ([id number])[facility] MCHC 27.9 % Low 30.5-36.0 [facility] Comment on above: Performed By: #### L [id number], [id number] ####Patrol Conductor: UNA ARCE ([id number])[facility] [place] (SB[facility]AB)[address] MCV (RBC) [Entitic vol] 78.6 fL Normal 77.0-99.0 [facility] Comment on above: Performed By: #### L [id number], [id number] ####Patrol Conductor: UNA ARCE ([id number])[facility] [place] ([facility])[address] Platelet mean volume (Bld) [Entitic vol] 9.7 fL Normal 9.0-12.7 [facility] Comment on above: Performed By: #### L [id number], [id number] ####Patrol Conductor: UNA ARCE ([id number])[facility] [place] ([facility])[address] Platelets (Bld) [#/Vol] 344 10*3/uL Normal 140-440 [facility] Comment on above: Performed By: #### L [id number], [id number] ####Patrol Conductor: UNA ARCE ([id number])[facility] [place] ([facility])[address] RBC (Bld) [#/Vol] 3.46 10*6/uL Low 4.40-5.90 [facility] Comment on above: Performed By: #### L [id number], [id number] ####Patrol Conductor: UNA ARCE ([id number])[facility] [place] ([facility])[address] [place] [address] [place] WBC (Bld) [#/Vol] 10.3 10*3/uL Normal 3.6-10.7 [facility] Comment on above: Performed By: #### L [id number], [id number] ####Patrol Conductor: UNA ARCE ([id number])[facility] [place] ([facility])[address] COMPREHENSIVE METABOLIC PANE Anant 04-06-2025 Albumin [Mass/Vol] 2.6 g/dL Low 3.4-4.8 [facility] Comment on above: Performed By: #### L AB103, LAB17 ####Patrol Conductor: UNA ARCE ([id number])[facility] [place] ([facility])[address] ALP [Catalytic activity/Vol] 63 U/L Normal 40-150 [facility] Comment on above: Performed By: #### L AB103, LAB17 ####Patrol Conductor: UNA ARCE ([phone])[facility] ([facility])[address] ALT [Catalytic activity/Vol] 6 U/L Normal <40 [facility] Comment on above: Performed By: #### L AB103, LAB17 ####Patrol Conductor: UNA ARCE ([id number])[facility] ([facility])[address] Anion gap [Moles/Vol] 13 mmol/L Normal 3-13 [facility] Comment on above: Performed By: #### L AB103, LAB17 ####Patrol Conductor: UNA ARCE ([id number])[facility] ([facility])[address] AST [Catalytic activity/Vol] 25 U/L Normal <34 [facility] Comment on above: Performed By: #### L AB103, LAB17 ####Patrol Conductor: UNA ARCE ([id number])[facility] [place] ([facility])[address] Bilirubin [Mass/Vol] 1.7 mg/dL High <1.2 [facility] Comment on above: Performed By: #### L AB103, LAB17 ####Patrol Conductor: UNA ARCE ([id number])[facility] (SBHLAB)[address] [place] [address] [place] Calcium [Mass/Vol] 8.2 mg/dL Low 8.8-10.0 [facility] Comment on above: Performed By: #### L AB103, LAB17 ####Patrol Conductor: UNA ARCE ([id number])[facility] [place] (SBHLAB)[address] Chloride [Moles/Vol] 104 mmol/L Normal 98-107 [facility] Comment on above: Performed By: #### L AB103, LAB17 ####Patrol Conductor: UNA ARCE ([id number])[facility] (SBHLAB)[address] CO2 [Moles/Vol] 26 mmol/L Normal 23-31 [facility] Comment on above: Performed By: #### L AB103, LAB17 ####Patrol Conductor: UNA ARCE ([id number])[facility] (SBHLAB)[address] Creatinine [Mass/Vol] 1.44 mg/dL High 0.72-1.25 [facility] Comment on above: Performed By: #### L AB103, LAB17 ####Patrol Conductor: UNA ARCE ([id number])[facility] (SBHLAB)[address] [place] [address] [place] GLOMERULAR FILTRATION RATE ML/MIN/1.73 SQ M.PREDICTED 46.4 mL/min/1.73m*2 Low >60.0 [facility] Comment on above: Result Comment: Calc ulation based on the Chronic Kidney Disease Epidemiology Collaboration (CKD-EPI) equation refit without adjustment for race Performed By: #### L AB103, LAB17 ####Patrol Conductor: UNA ARCE ([id number])[facility] (SBHLAB)[address] [place] [address] [place] Glucose [Mass/Vol] 98 mg/dL Normal 82-115 [facility] Comment on above: Performed By: #### L AB103, LAB17 ####Patrol Conductor: UNA ARCE ([id number])[facility] (SBHLAB)[address] Potassium [Moles/Vol] 4.2 mmol/L Normal 3.5-5.1 [facility] Comment on above: Result Comment: [facility] potassium values may be up to 0.5 mmol/L lower than serum values. Performed By: #### L AB103, LAB17 ####Patrol Conductor: UNA ARCE ([id number])[facility] (SBHLAB)[address] Protein [Mass/Vol] 6.1 g/dL Low 6.4-8.3 [facility] Comment on above: Performed By: #### L AB103, LAB17 ####Patrol Conductor: UNA ARCE ([phone])[facility] (SBHLAB)[address] Sodium [Moles/Vol] 143 mmol/L Normal 136-145 [facility] Comment on above: Performed By: #### L AB103, LAB17 ####Patrol Conductor: UNA ARCE ([id number])[facility] (SBHLAB)[address] Urea nitrogen [Mass/Vol] 24 mg/dL High 9-23 [facility] Comment on above: Performed By: #### L AB103, LAB17 ####Patrol Conductor: UNA ARCE ([id number])[facility] (SBHLAB)[address] ABDOMEN PELVIS WO IV CONT RASTon 04-06-2025 CT ABDOMEN PELVIS WO IV CONTRAST Normal [facility] CT Abdomen and Pelvis WO con traston 04-06-2025 [facility] Radiology Study observation (narrative) [facility] CT Abdomen and Pelvis WO con trastOrdered By: Sergey Gooden on 04-06-2025 [facility]. Work Phone: CT CHEST WO IV CONTRASTon 07 -29-2025 CT CHEST WO IV CONTRAST Normal [facility] CT Chest WO contraston 04-06 [facility] Radiology Study observation (narrative) [facility] CT Chest WO contrastOrdered By: Cari Lazaro on 04-06-2025 [facility] Work Phone: Consulton 04-06-2025 Consult Normal [facility] Consult Normal [facility] ECG 12-LEADon 04-06-2025 ECG 12-LEAD IMPRESSION: Sinus arrhythmia Nonspecific intraventricular conduction delay Probable anterolateral infarct, old No previous ECG for comparison Electronically Signed On 04-06-2025 01:54:21 EDT by Maik Laird Normal [facility] IRON AND TIBCon 04-06-2025 IRON BINDING CAPACITY 381 ug/dL Normal 250-450 [facility] Comment on above: Performed By: #### L AB829 ####Patrol Conductor: UNA ARCE ([id number])[facility] [place] [address] IRON SATURATION 49.3 % Normal 20.0-50.0 [facility] Comment on above: Performed By: #### L AB829 ####Patrol Conductor: UNA ARCE ([id number])[facility] [place] [address] IRON, TOTAL 188 ug/dL High 65-175 [facility] Comment on above: Performed By: #### L AB829 ####Patrol Conductor: UNA ARCE ([id number])[facility] (SBAB)[address] [place] [address] Laboratory - Hematology and Cell countson 04-06-2025 Basophils (Bld) [#/Vol] 0.2 10*3/uL 0.0 - 0.2 10*3/uL [facility] Basophils/100 WBC (Bld) 2 % 0 - 2 % [facility] Lymphocytes (Bld) [#/Vol] 1.4 10*3/uL 1.0 - 4.3 10*3/uL [facility] Lymphocytes/100 WBC (Bld) 14 % Low 15 - 45 % [facility] Monocytes (Bld) [#/Vol] 0.7 10*3/uL 0.0 - 0.9 10*3/uL [facility] Monocytes/100 WBC (Bld) 7 % 5 - 13 % [facility] RBC morphology finding Nom (Bld) abnormal [facility] MAGNESIUMon 04-06-2025 Magnesium [Mass/Vol] 1.8 mg/dL Normal 1.6-2.6 [facility] Comment on above: Result Comment: [facility] [place] COMMENTS:Higher values can be expected in females during menses. Performed By: #### L AB103, LAB17 ####Patrol Conductor: UNA ARCE ([id number])[facility] [place] (SBHLAB)[address] MANUAL DIFFERENTIAL (CELLAVI BANDAR)on 04-06-2025 ANISOCYTOSIS PRESENCE IN BLOOD BY LIGHT MICROSCOPY Moderate Abnormal (none) [facility] Comment on above: Performed By: #### Gilbert [id number], [id number] ####Patrol Conductor: UNA ARCE ([id number])[facility] [place] (SBHLAB)[address] BAND NEUTROPHILS TOTAL PER COUNTED LEUKOCYTES BY MANUAL COUNT 1 Normal [facility] Comment on above: Performed By: #### L [id number], [id number] ####Patrol Conductor: UNA ARCE ([id number])[facility] [place] (SBHLAB)[address] [place] [address] [place] BANDS (10*3/UL) IN BLOOD-CELLAVISION 0.1 10*3/uL High <=0.0 [facility] Comment on above: Performed By: #### L [id number], [id number] ####Patrol Conductor: UNA ARCE ([id number])[facility] [place] (SBHLAB)[address] [place] [address] [place] BASOPHILS (10*3/UL) IN BLOOD-CELLAVISION 0.2 10*3/uL Normal 0.0-0.2 [facility] Comment on above: Performed By: #### L [id number], [id number] ####Patrol Conductor: UNA YAZMIN ([id number])[facility] [place] (SBHLAB)[address] BASOPHILS TOTAL PER COUNTED LEUKOCYTES BY MANUAL COUNT 2 Normal [facility] Comment on above: Performed By: #### L [id number], [id number] ####Patrol Conductor: UNA BERMUDEZPEDRO ([id number])[facility] [place] (SBHLAB)[address] [place] [address] [place] BASOPHILS/100 LEUKOCYTES IN BLOOD-CELLAVISION 2 % Normal 0-2 [facility] Comment on above: Performed By: #### L [id number], [id number] ####Patrol Conductor: UNA BERMUDEZPEDRO ([id number])[facility] [place] (SB[facility]AB)[address] BLASTS TOTAL PER COUNTED LEUKOCYTES BY MANUAL COUNT Normal [facility] Comment on above: Performed By: #### L [id number], [id number] ####Patrol Conductor: UNA BERMUDEZPEDRO ([id number])[facility] [place] (SBHLAB)[address] [place] [address] [place] EOSINOPHILS TOTAL PER COUNTED LEUKOCYTES BY MANUAL COUNT Normal [facility] Comment on above: Performed By: #### L [id number], [id number] ####Patrol Conductor: UNA BERMUDEZPEDRO ([id number])[facility] [place] (SB[facility]AB)[address] [place] [address] [place] HYPOCHROMIA (PRESENCE) IN BLOOD BY LIGHT MICROSCOPY Moderate Abnormal (none) [facility] Comment on above: Performed By: #### L [id number], [id number] ####Patrol Conductor: UNA BERMUDEZPEDRO ([id number])[facility] [place] (SB[facility]AB)[address] [place] [address] [place] LYMPHOCYTES (10*3/UL) IN BLOOD-CELLAVISION 1.4 10*3/uL Normal 1.0-4.3 [facility] Comment on above: Performed By: #### L [id number], [id number] ####Patrol Conductor: UNA YAZMIN ([id number])[facility] [place] (SBHLAB)[address] LYMPHOCYTES TOTAL PER COUNTED LEUKOCYTES BY MANUAL COUNT 14 Normal [facility] Comment on above: Performed By: #### L [id number], [id number] ####Patrol Conductor: UNA YAZMIN ([id number])[facility] [place] (SBHLAB)[address] [place] [address] [place] LYMPHOCYTES/100 LEUKOCYTES IN BLOOD-CELLAVISION 14 % Low 15-45 [facility] Comment on above: Performed By: #### L [id number], [id number] ####Patrol Conductor: UNA YAZMIN ([id number])[facility] [place] (SBHLAB)[address] METAMYELOCYTES TOTAL PER COUNTED LEUKOCYTES BY MANUAL COUNT Normal [facility] Comment on above: Performed By: #### L [id number], [id number] ####Patrol Conductor: UNA BERMUDEZPEDRO ([id number])[facility] [place] (SBHLAB)[address] MICROCYTES (PRESENCE) IN BLOOD BY LIGHT MICROSCOPY Slight Abnormal (none) [facility] Comment on above: Performed By: #### L [id number], [id number] ####Patrol Conductor: UNA BERMUDEZPEDRO ([id number])[facility] [place] (SB[facility]AB)[address] [place] [address] [place] MONOCYTES (10*3/UL) IN BLOOD-CELLAVISION 0.7 10*3/uL Normal 0.0-0.9 [facility] Comment on above: Performed By: #### L [id number], [id number] ####Patrol Conductor: UNA BERMUDEZPEDRO ([id number])[facility] [place] (SBHLAB)[address] [place] [address] [place] MONOCYTES TOTAL PER COUNTED LEUKOCYTES BY MANUAL COUNT 7 Normal [facility] Comment on above: Performed By: #### L [id number], [id number] ####Patrol Conductor: UNA ARCE ([id number])[facility] [place] (SBHLAB)[address] [place] [address] [place] MONOCYTES/100 LEUKOCYTES IN BLOOD-LUCIANA 7 % Normal 5-13 [facility] Comment on above: Performed By: #### L [id number], [id number] ####Patrol Conductor: UNA ARCE ([id number])[facility] [place] (SBHLAB)[address] [place] [address] [place] MYELOCYTES COUNTED BY MANUAL COUNT Normal [facility] Comment on above: Performed By: #### L [id number], [id number] ####Patrol Conductor: UNA ARCE ([id number])[facility] [place] (SB[facility])[address] [place] [address] [place] NEUTROPHILS BAND FORM/100 LEUKOCYTES IN BLOOD-CELLAVISI 1 % High <=0 [facility] Comment on above: Performed By: #### L [id number], [id number] ####Patrol Conductor: UNA ARCE ([id number])[facility] [place] ([facility])[address] [place] [address] [place] NEUTROPHILS TOTAL PER COUNTED LEUKOCYTES BY MANUAL COUNT 79 Normal [facility] Comment on above: Performed By: #### L [id number], [id number] ####Patrol Conductor: UNA ARCE ([id number])[facility] [place] (SB[facility])[address] [place] [address] [place] NUCLEATED ERYTHROCYTES/100 LEUKOCTES IN BLOOD-CELLAVISION 1 % Normal 0-2 [facility] Comment on above: Performed By: #### L [id number], [id number] ####Patrol Conductor: UNA ARCE ([id number])[facility] [place] ([facility])[address] [place] [address] [place] POIKILOCYTOSIS (PRESENCE) IN BLOOD BY LIGHT MICROSCOPY Slight Abnormal (none) [facility] Comment on above: Performed By: #### L [id number], [id number] ####Patrol Conductor: UNA ARCE ([id number])[facility] [place] (SBHLAB)[address] [place] [address] [place] PROMYELOCYTES TOTAL PER COUNTED LEUKOCYTES BY MANUAL COUNT Normal [facility] Comment on above: Performed By: #### L [id number], [id number] ####Patrol Conductor: UNA ARCE ([id number])[facility] [place] (SBHLAB)[address] [place] [address] [place] RBC MORPHOLOGY IN BLOOD abnormal Normal [facility] Comment on above: Performed By: #### L [id number], [id number] ####Patrol Conductor: UNA ARCE ([id number])[facility] [place] (SBHLAB)[address] [place] [address] [place] SEGMENTED NEUTROPHILS (10*3/UL) IN BLOOD-CELLAVISION 8.0 10*3/uL High 1.8-7.5 [facility] Comment on above: Performed By: #### L [id number], [id number] ####Patrol Conductor: UNA ARCE ([id number])[facility] [place] (SB[facility])[address] [place] [address] [place] SEGMENTED NEUTROPHILS/100 LEUKOCYTES-CE 77 % Normal 38-82 [facility] Comment on above: Performed By: #### L [id number], [id number] ####Patrol Conductor: UNA ARCE ([id number])[facility] [place] ([facility])[address] [place] [address] [place] STOMATOCYTES IN BLOOD BY LIGHT MICROSCOPY Slight Abnormal (none) [facility] Comment on above: Performed By: #### L [id number], [id number] ####Patrol Conductor: UNA ARCE ([id number])[facility] [place] (SB[facility])[address] [place] [address] [place] UNCLASSIFIED CELLS TOTAL PER COUNTED LEUKOCYTES BY MANUAL COUNT Normal [facility] Comment on above: Performed By: #### L [id number], [id number] ####Patrol Conductor: UNA ARCE ([id number])[facility] [place] (SBHLAB)[address] VARIANT LYMPHOCYTES TOTAL PER COUNTED LEUKOCYTES BY MANUAL COUNT Normal [facility] Comment on above: Performed By: #### L [id number], [id number] ####Patrol Conductor: UNA ARCE ([id number])[facility] [place] (SBHLAB)[address] Nursing Noteon 04-06-2025 Nursing Note Normal [facility] Nursing Note Transfused two pint of blood. No any allergic reaction seen.vital signs are within normal limits. Normal [facility] Progress Noteon 04-06-2025 Progress Note Normal [facility] Progress Note Normal [facility] US Heart TransthoracicOrdere d By: Thomas Hinton on 04-06-2025 Ao Root Index 1.47 cm/m2 [facility] Work Phone: Aortic Root 3 cm [facility] Work Phone: Aortic valve Mean systole pressure gradient by US.doppler derived full Bernoulli 7 mmHg [facility] Work Phone: Aortic valve Orifice area by US 3.1 cm2 [facility] Work Phone: Aortic valve Peak systolic flow by US.doppler 1.3 m/s [facility] Work Phone: Ascending Aorta 3.1 cm [facility] Work Phone: Ascending Aorta Index 1.52 cm/m2 [facility] Work Phone: AV Area by Peak Velocity 1.5 cm2 [facility] Work Phone: AV Area by VTI 1.3 cm2 [facility] Work Phone: AV Peak Gradient 15 mmHg [facility] Work Phone: AV Peak Velocity 1.9 m/s [facility] Work Phone: AV Velocity Ratio 0.47 [facility] Work Phone: AV VTI 37.4 cm [facility] Work Phone: JULIET/BSA Peak Velocity 0.7 cm2/m2 [facility] Work Phone: JULIET/BSA VTI 0.6 cm2/m2 [facility] Work Phone: E/E' Lateral 23 [facility] Work Phone: Est. RA Pressure 15 mmHg [facility] Work Phone: Fractional Shortening 2D 8 % 28 - 44 % [facility] Work Phone: Interpretation and review of laboratory results Abnormal [facility] Work Phone: IVSd 1.1 cm Abnormal 0.6 - 1.0 cm [facility] Work Phone: LA Diameter 4 cm [facility] Work Phone: LA Size Index 1.96 cm/m2 [facility] Work Phone: LA Volume 4C 56 mL 18 - 58 mL [facility] Work Phone: LA Volume Index 4C 27 mL/m2 16 - 34 mL/m2 [facility] Work Phone: LA/AO Root Ratio 1.33 [facility] Work Phone: Left ventricular Ejection fraction by US.2D+Calculated by biplane method of disks 22 % Abnormal 55 - 100 % [facility] Work Phone: LV E' Lateral Velocity 5 cm/s [facility] Work Phone: LV EDV A2C 331 mL [facility] Work Phone: LV EDV A4C 293 mL [facility] Work Phone: LV EDV BP 315 mL Abnormal 67 - 155 mL [facility] Work Phone: LV EDV Index A2C 162 mL/m2 [facility] Work Phone: LV EDV Index A4C 144 mL/m2 [facility] Work Phone: LV EDV Index BP 154 mL/m2 [facility] Work Phone: LV Ejection Fraction A2C 26 % [facility] Work Phone: LV Ejection Fraction A4C 22 % [facility] Work Phone: LV ESV A2C 245 mL [facility] Work Phone: LV ESV A4C 229 mL [facility] Work Phone: LV ESV BP 247 mL Abnormal 22 - 58 mL [facility] Work Phone: LV ESV Index A2C 120 mL/m2 [facility] Work Phone: LV ESV Index A4C 112 mL/m2 [facility] Work Phone: LV ESV Index BP 121 mL/m2 [facility] Work Phone: LV Mass 2D 246.9 g Abnormal 88 - 224 g [facility] Work Phone: LV Mass 2D Index 121 g/m2 Abnormal 49 - 115 g/m2 [facility] Work Phone: LV RWT Ratio 0.3 [facility] Work Phone: LVIDd 6 cm Abnormal 4.2 - 5.9 cm [facility] Work Phone: LVIDd Index 2.94 cm/m2 [facility] Work Phone: LVIDs 5.5 cm [facility] Work Phone: LVIDs Index 2.7 cm/m2 [facility] Work Phone: LVOT Cardiac Output 3.2 liter/minute [facility] Work Phone: LVOT Diameter 2 cm [facility] Work Phone: LVOT Mean Gradient 2 mmHg [facility] Work Phone: LVOT Peak Gradient 3 mmHg [facility] Work Phone: LVOT Peak Velocity 0.9 m/s [facility] Work Phone: LVOT Stroke Volume Index 23.2 mL/m2 [facility] Work Phone: LVOT SV 47.4 ml [facility] Work Phone: LVOT VTI 15.1 cm [facility] Work Phone: LVOT:AV VTI Index 0.4 [facility] Work Phone: LVPWd 0.9 cm 0.6 - 1.0 cm [facility] Work Phone: MR VTI 139.2 cm [facility] Work Phone: MV A Velocity 1.12 m/s [facility] Work Phone: MV E Velocity 1.15 m/s [facility] Work Phone: MV E Wave Deceleration Time 179.2 ms [facility] Work Phone: MV E/A 1.03 [facility] Work Phone: MV Nyquist Velocity 36 cm/s [facility] Work Phone: MV Regurg Velocity PISA 4.6 m/s [facility] Work Phone: RA Area 4C 34.5 mL [facility] Work Phone: RV Free Wall Peak S' 13 cm/s [facility] Work Phone: RVSP 66 mmHg [facility] Work Phone: TAPSE 2.4 cm 1.7 cm [facility] Work Phone: TR Max Velocity 3.58 m/s [facility] Work Phone: TR Peak Gradient 51 mmHg [facility] Work Phone: [facility] Work Phone: US Heart Transthoracicon CV CPACS BASIC METABOLIC PANELon 03-10 Anion gap [Moles/Vol] 8 mmol/L Normal 3-13 [facility] Comment on above: Performed By: #### L AB89, MNL679, LAB67, LAB69, LAB15, [id number], [id number], LAB20 ####Patrol Conductor: UNA ARCE ([id number])[facility] (SBHLAB)[address] Calcium [Mass/Vol] 8.4 mg/dL Low 8.8-10.0 [facility] Comment on above: Performed By: #### L AB89, RUT547, LAB67, LAB69, LAB15, BLV159, [id number], LAB20 ####Patrol Conductor: UNA ARCE ([id number])[facility] ([facility]AB)[address] Chloride [Moles/Vol] 105 mmol/L Normal 98-107 [facility] Comment on above: Performed By: #### L AB89, RVW171, LAB67, LAB69, LAB15, IJI979, [id number], LAB20 ####Patrol Conductor: UNA ARCE ([id number])[facility] ([facility])[address] CO2 [Moles/Vol] 27 mmol/L Normal 23-31 [facility] Comment on above: Performed By: #### L AB89, MXT913, LAB67, LAB69, LAB15, IUD656, [id number], LAB20 ####Patrol Conductor: UNA ARCE ([id number])[facility] ([facility])[address] Creatinine [Mass/Vol] 1.46 mg/dL High 0.72-1.25 [facility] Comment on above: Performed By: #### L AB89, GXN795, LAB67, LAB69, LAB15, [id number], [id number], LAB20 ####Patrol Conductor: UNA ARCE ([id number])[facility] ([facility])[address] GLOMERULAR FILTRATION RATE ML/MIN/1.73 SQ M.PREDICTED 45.7 mL/min/1.73m*2 Low >60.0 [facility] Comment on above: Result Comment: Calc ulation based on the Chronic Kidney Disease Epidemiology Collaboration (CKD-EPI) equation refit without adjustment for race Performed By: #### L AB89, QIQ083, LAB67, LAB69, LAB15, STT342, [id number], LAB20 ####Patrol Conductor: UNA ARCE ([id number])[facility] Glucose [Mass/Vol] 108 mg/dL Normal 82-115 [facility] Comment on above: Performed By: #### L AB89, ALW552, LAB67, LAB69, LAB15, HFQ136, [id number], LAB20 ####Patrol Conductor: UNA ARCE ([phone])[facility])[address] [place] [address] Potassium [Moles/Vol] 4.5 mmol/L Normal 3.5-5.1 [facility] Comment on above: Result Comment: [facility] potassium values may be up to 0.5 mmol/L lower than serum values. Performed By: #### L AB89, LEQ308, LAB67, LAB69, LAB15, JFQ507, [id number], LAB20 ####Patrol Conductor: UNA ARCE ([id number])[facility] [place] [address] Sodium [Moles/Vol] 140 mmol/L Normal 136-145 [facility] Comment on above: Performed By: #### L AB89, NWF016, LAB67, LAB69, LAB15, PWR927, [id number], LAB20 ####Patrol Conductor: UNA ARCE ([id number])[facility] Urea nitrogen [Mass/Vol] 24 mg/dL High 9-23 [facility] Comment on above: Performed By: #### L AB89, PWL399, LAB67, LAB69, LAB15, FDW426, [id number], LAB20 ####Patrol Conductor: UNA ARCE ([id number])[facility] ([facility])[address] BLOOD TYPE AND SCREEN GELon 04-05-2025 ABO GROUPING A Normal [facility] Comment on above: Performed By: #### L AB276 ####Patrol Conductor: UNA ARCE ([id number])[facility] ([facility])[address] RH TYPE IN BLOOD Negative Normal [facility] Comment on above: Performed By: #### L AB276 ####Patrol Conductor: UNA ARCE ([phone])[facility] BLOOD [facility] ([facility])[address] [place] [address] CBC WITH AUTO DIFFERENTIALon 04-05-2025 Erythrocyte distribution width (RBC) [Ratio] 19.9 % High 11.5-15.0 [facility] Comment on above: Performed By: #### L [id number], [id number], [id number] ####Patrol Conductor: UNA ARCE ([id number])[facility] ([facility])[address] [place] [address] Hematocrit (Bld) [Volume fraction] 20.7 % Low 40.0-52.0 [facility] Comment on above: Performed By: #### L [id number], [id number], [id number] ####Patrol Conductor: UNA ARCE ([id number])[facility] ([facility])[address] [place] [address] Hemoglobin (Bld) [Mass/Vol] 5.5 g/dL Critically low 13.0-18.0 [facility] Comment on above: Performed By: #### L PY4945, [id number], TJE815 ####Patrol Conductor: UNA ARCE ([id number])[facility] ([facility])[address] MCH (RBC) [Entitic mass] 19.4 pg Low 26.0-34.0 [facility] Comment on above: Performed By: #### L LS3999, [id number], [id number] ####Patrol Conductor: UNA ARCE ([id number])[facility] ([facility])[address] MCHC 26.6 % Low 30.5-36.0 [facility] Comment on above: Performed By: #### L YH4309, [id number], [id number] ####Patrol Conductor: UNA ARCE ([id number])[facility] ([facility])[address] MCV (RBC) [Entitic vol] 73.1 fL Low 77.0-99.0 [facility] Comment on above: Performed By: #### Gilbert PD7026, [id number], [id number] ####Patrol Conductor: UNA ARCE ([id number])[facility] BASHIRMarisol ([facility])[address] Platelet mean volume (Bld) [Entitic vol] 9.4 fL Normal 9.0-12.7 [facility] Comment on above: Performed By: #### L ZH3336, [id number], ZYO032 ####Patrol Conductor: UNA ARCE ([id number])[facility] ([facility])[address] Platelets (Bld) [#/Vol] 358 10*3/uL Normal 140-440 [facility] Comment on above: Performed By: #### L ZM8852, [id number], [id number] ####Patrol Conductor: UNA ARCE ([id number])[facility] ([facility])[address] RBC (Bld) [#/Vol] 2.83 10*6/uL Low 4.40-5.90 [facility] Comment on above: Performed By: #### L MO3685, [id number], [id number] ####Patrol Conductor: UNA ARCE ([phone])[facility] BASHIRMarisol ([facility])[address] WBC (Bld) [#/Vol] 10.0 10*3/uL Normal 3.6-10.7 [facility] Comment on above: Performed By: #### L KM3851, [id number], [id number] ####Patrol Conductor: UNA ARCE ([id number])[facility] SANCHEZCHRISTINAN (SBHLAB)[address] ED Provider Noteon ED Provider Note Normal [facility] FERRITINon 04-05-2025 Ferritin [Mass/Vol] 19 ng/mL Low 22-275 [facility] Comment on above: Result Comment: YARELI [place] COMMENTS:Ferritin levels below 10 ng/mL have been reported as indicative of iron deficiency anemia. Performed By: #### L [id number], [id number], [id number] ####Patrol Conductor: UNA ARCE ([id number])[facility]ITAL[facility] SANCHEZCHRISTINAN (SBHLAB)[address] FOLATEon 04-05-2025 FOLATE RESULT 13.7 ng/mL Normal 7.0-31.4 [facility] Comment on above: Performed By: #### L AB89, KZO570, LAB67, LAB69, LAB15, ZVT978, [id number], LAB20 ####Patrol Conductor: UNA ARCE ([id number])[facility] [place] ([facility]HLAB)[address] HAPTOGLOBINon 04-05-2025 HAPTOGLOBIN 226 mg/dL Normal 50-270 [facility] Comment on above: Performed By: #### L AB89, ANN852, LAB67, LAB69, LAB15, BQY325, [id number], LAB20 ####Patrol Conductor: UNA ARCE ([id number])[facility] ([facility])[address] HEPATIC FUNCTION PANELon Albumin [Mass/Vol] 2.7 g/dL Low 3.4-4.8 [facility] Comment on above: Performed By: #### L AB89, SXQ954, LAB67, LAB69, LAB15, MDW687, [id number], LAB20 ####Patrol Conductor: UNA ARCE ([id number])[facility] [place] [address] ALP [Catalytic activity/Vol] 65 U/L Normal 40-150 [facility] Comment on above: Performed By: #### L AB89, EDS460, LAB67, LAB69, LAB15, RTY817, [id number], LAB20 ####Patrol Conductor: UNA ARCE ([id number])[facility] ([facility])[address] [place] [address] ALT [Catalytic activity/Vol] 7 U/L Normal <40 [facility] Comment on above: Performed By: #### L AB89, HXM000, LAB67, LAB69, LAB15, ISW814, [id number], LAB20 ####Patrol Conductor: UNA ARCE ([id number])[facility] ([facility])[address] [place] [address] AST [Catalytic activity/Vol] 22 U/L Normal <34 [facility] Comment on above: Performed By: #### L AB89, PNK903, LAB67, LAB69, LAB15, FBW247, [id number], LAB20 ####Patrol Conductor: UNA ARCE ([id number])[facility] ([facility])[address] [place] [address] Bilirubin [Mass/Vol] 0.5 mg/dL Normal <1.2 [facility] Comment on above: Performed By: #### L AB89, DYV493, LAB67, LAB69, LAB15, GOM196, [id number], LAB20 ####Patrol Conductor: UNA ARCE ([id number])[facility] ([facility])[address] Bilirubin.indirect [Mass/Vol] 0.2 mg/dL Normal <0.5 [facility] Comment on above: Performed By: #### L AB89, KZV596, LAB67, LAB69, LAB15, CRZ356, [id number], LAB20 ####Patrol Conductor: UNA ARCE ([id number])[facility] ([facility])[address] Protein [Mass/Vol] 6.4 g/dL Normal 6.4-8.3 [facility] Comment on above: Result Comment: Seru m protein values are higher than plasma values. Samples from recumbent persons are lower by up to 0.5 g/dL as compared to ambulatory persons. After 60 years values are lower by up to 0.2 g/dL. Performed By: #### L AB89, QBB447, LAB67, LAB69, LAB15, HIW179, [id number], LAB20 ####Patrol Conductor: UNA ARCE ([id number])[facility] ([facility])[address] [place] [address] HIGH SENSITIVITY TROPONIN, S ERIAL BASELINEon 04-05-2025 TROPONIN HS SERIAL BASELINE 29 ng/L Normal <=35 [facility] Comment on above: Result Comment: In i ndividuals presenting with symptoms > 2h, a baseline troponin <= 5 ng/L suggests acutecardiac injury is unlikely and further serial testing is generally not indicated. Performed By: #### L [id number] ####Patrol Conductor: UNA ARCE ([id number])[facility] ([facility])[address] [place] [address] TROPONIN HS SERIAL BASELINE 30 ng/L Normal <=35 [facility] Comment on above: Result Comment: In i ndividuals presenting with symptoms > 2h, a baseline troponin <= 5 ng/L suggests acutecardiac injury is unlikely and further serial testing is generally not indicated. Performed By: #### L AB89, BNM380, LAB67, LAB69, LAB15, QHO457, [id number], LAB20 ####Patrol Conductor: UNA ARCE ([id number])[facility] ([facility])[address] HIGH SENSITIVITY TROPONIN, Jesus NUNES, SECOND TESTon 04-05-2025 2H TROPONIN HS (SERIAL 2ND TROPONIN) 28 ng/L Normal <=35 [facility] Comment on above: Result Comment: 2h t roponin (2nd troponin) samples collected between 1h 40 min and 2h and 20 min of the baseline collection time can be utilized to interpret delta troponins as per [facility] algorithms. Samples collected outside this timeframe need to be interpreted clinically.Rising or falling troponin delta below 2 ng/L as compared to baseline value suggests thatacute cardiac injury is unlikely. Performed By: #### L [id number], LAB18, LAB68 ####Patrol Conductor: UNA ARCE ([id number])[facility])[address] [place] [address] LIPID PANELon 04-05-2025 Cholesterol [Mass/Vol] 89 mg/dL Normal <200 [facility] Comment on above: Performed By: #### L [id number], LAB18, LAB68 ####Patrol Conductor: UNA ARCE ([id number])[facility])[address] [place] [address] Cholesterol in HDL [Mass/Vol] 29 mg/dL Low >=60 [facility] Comment on above: Performed By: #### L [id number], LAB18, LAB68 ####Patrol Conductor: UNA ARCE ([id number])[facility] ([facility])[address] Cholesterol.total/Choles terol in HDL [Mass ratio] 3 {ratio} Normal [facility] Comment on above: Result Comment: Ref Range:< 3 Low Risk for CHD3-6 Mod Risk for CHD> 6 High Risk for CHD Performed By: #### L [id number], LAB18, LAB68 ####Patrol Conductor: UNA ARCE ([id number])[facility] ([facility])[address] LOW DENSITY LIPOPROTEIN 48 mg/dL Normal 0-<100 [facility] Comment on above: Performed By: #### L [id number], LAB18, LAB68 ####Patrol Conductor: UNA ARCE ([id number])[facility] ([facility])[address] NON-HDL CHOLESTEROL, CALCULATED 60 Normal <130 [facility] Comment on above: Performed By: #### L [id number], LAB18, LAB68 ####Patrol Conductor: UNA ARCE ([id number])[facility] [place] (SB[facility])[address] Triglyceride [Mass/Vol] 60 mg/dL Normal <150 [facility] Comment on above: Performed By: #### L [id number], LAB18, LAB68 ####Patrol Conductor: UNA ARCE ([id number])[facility] ([facility])[address] VERY LOW DENSITY LIPOPROTEIN, CALCULATED 12 mg/dL Normal <=30 [facility] Comment on above: Performed By: #### L [id number], LAB18, LAB68 ####Patrol Conductor: UNA ARCE ([id number])[facility] ([facility])[address] [place] [address] MANUAL DIFFERENTIAL (CELLAVI BANDAR)on 04-05-2025 ANISOCYTOSIS PRESENCE IN BLOOD BY LIGHT MICROSCOPY Moderate Abnormal (none) [facility] Comment on above: Performed By: #### L VG1499, [id number], HHL108 ####Patrol Conductor: UNA ARCE ([id number])[facility] [place] ([facility])[address] BAND NEUTROPHILS TOTAL PER COUNTED LEUKOCYTES BY MANUAL COUNT Normal [facility] Comment on above: Performed By: #### L UG2542, [id number], BAH800 ####Patrol Conductor: UNA ARCE ([id number])[facility] [place] (SBHLAB)[address] [place] [address] [place] BASOPHILS TOTAL PER COUNTED LEUKOCYTES BY MANUAL COUNT Normal [facility] Comment on above: Performed By: #### L [id number], [id number], MAK726 ####Patrol Conductor: UNA ARCE ([id number])[facility] ([facility])[address] BLASTS TOTAL PER COUNTED LEUKOCYTES BY MANUAL COUNT Normal [facility] Comment on above: Performed By: #### L [id number], [id number], ISJ674 ####Patrol Conductor: UNA ARCE ([id number])[facility] ([facility])[address] EOSINOPHILS TOTAL PER COUNTED LEUKOCYTES BY MANUAL COUNT Normal [facility] Comment on above: Performed By: #### L BH3476, [id number], IUS687 ####Patrol Conductor: UNA ARCE ([id number])[facility] ([facility])[address] HYPOCHROMIA (PRESENCE) IN BLOOD BY LIGHT MICROSCOPY Moderate Abnormal (none) [facility] Comment on above: Performed By: #### L NX3579, [id number], AWB705 ####Patrol Conductor: UNA ARCE ([id number])[facility])[address] [place] [address] [place] LYMPHOCYTES (10*3/UL) IN BLOOD-CELLAVISION 1.4 10*3/uL Normal 1.0-4.3 [facility] Comment on above: Performed By: #### L CB1504, [id number], HNH928 ####Patrol Conductor: UNA ARCE ([id number])[facility] ([facility])[address] [place] [address] [place] LYMPHOCYTES TOTAL PER COUNTED LEUKOCYTES BY MANUAL COUNT 15 Normal [facility] Comment on above: Performed By: #### L LY3712, [id number], SQZ177 ####Patrol Conductor: UNA ARCE ([id number])[facility] [place] (SBHLAB)[address] [place] [address] [place] LYMPHOCYTES/100 LEUKOCYTES IN BLOOD-CELLAVISION 14 % Low 15-45 [facility] Comment on above: Performed By: #### L LW2549, [id number], YZG439 ####Patrol Conductor: UNA YAZMIN ([id number])[facility] [place] (SB[facility])[address] [place] [address] [place] METAMYELOCYTES TOTAL PER COUNTED LEUKOCYTES BY MANUAL COUNT Normal [facility] Comment on above: Performed By: #### L UM7622, [id number], QNS308 ####Patrol Conductor: UNA YAZMIN ([id number])[facility] [place] (SB[facility])[address] [place] [address] [place] MICROCYTES (PRESENCE) IN BLOOD BY LIGHT MICROSCOPY Slight Abnormal (none) [facility] Comment on above: Performed By: #### L VW6136, [id number], FGH040 ####Patrol Conductor: UNA STAUFFERMELANIE ([id number])[facility] [place] (SB[facility]AB)[address] [place] [address] [place] MONOCYTES (10*3/UL) IN BLOOD-CELLAVISION 1.3 10*3/uL High 0.0-0.9 [facility] Comment on above: Performed By: #### L CG2424, [id number], YDH568 ####Patrol Conductor: UNA MOHRCER ([id number])[facility] [place] ([facility])[address] [place] [address] [place] MONOCYTES TOTAL PER COUNTED LEUKOCYTES BY MANUAL COUNT 14 Normal [facility] Comment on above: Performed By: #### L NB8194, [id number], EKK488 ####Patrol Conductor: UNA ARCE ([id number])[facility] [place] ([facility])[address] [place] [address] [place] MONOCYTES/100 LEUKOCYTES IN BLOOD-LUCIANA 13 % Normal 5-13 [facility] Comment on above: Performed By: #### L WL8555, [id number], AJJ159 ####Patrol Conductor: UNA YAZMIN ([id number])[facility] [place] ([facility])[address] MYELOCYTES COUNTED BY MANUAL COUNT Normal [facility] Comment on above: Performed By: #### L QC7367, [id number], GTA129 ####Patrol Conductor: UNA YAZMIN ([id number])[facility] [place] ([facility])[address] NEUTROPHILS TOTAL PER COUNTED LEUKOCYTES BY MANUAL COUNT 76 [facility] Comment on above: Performed By: #### L UY4963, [id number], QLM002 ####Patrol Conductor: UNAANJEL ARCE ([id number])[facility] ([facility])[address] [place] [address] [place] NUCLEATED ERYTHROCYTES/100 LEUKOCTES IN BLOOD-CELLAVISION 1 % Normal 0-2 [facility] Comment on above: Performed By: #### L IV2196, [id number], NLB176 ####Patrol Conductor: UNA YAZMIN ([id number])[facility] [place] (SB[facility])[address] [place] [address] [place] OVALOCYTES PRESENCE IN BLOOD BY LIGHT MICROSCOPY Slight Abnormal (none) [facility] Comment on above: Performed By: #### L QL3553, [id number], HFF402 ####Patrol Conductor: UNA BERMUDEZPEDRO ([id number])[facility] [place] ([facility]AB)[address] [place] [address] [place] POIKILOCYTOSIS (PRESENCE) IN BLOOD BY LIGHT MICROSCOPY Moderate Abnormal (none) [facility] Comment on above: Performed By: #### L YR5000, [id number], YRR681 ####Patrol Conductor: UNA BERMUDEZPEDRO ([id number])[facility] [place] ([facility])[address] [place] [address] [place] PROMYELOCYTES TOTAL PER COUNTED LEUKOCYTES BY MANUAL COUNT Normal [facility] Comment on above: Performed By: #### L EQ3730, [id number], DUR924 ####Patrol Conductor: UNA ARCE ([id number])[facility] [place] (SBHLAB)[address] [place] [address] [place] RBC MORPHOLOGY IN BLOOD abnormal Normal [facility] Comment on above: Performed By: #### L LB6323, [id number], FJC674 ####Patrol Conductor: UNA ARCE ([id number])[facility] ([facility])[address] [place] [address] [place] SEGMENTED NEUTROPHILS (10*3/UL) IN BLOOD-CELLAVISION 7.2 10*3/uL Normal 1.8-7.5 [facility] Comment on above: Performed By: #### L MU1564, [id number], GHH634 ####Patrol Conductor: UNA ARCE ([id number])[facility] ([facility])[address] [place] [address] [place] SEGMENTED NEUTROPHILS/100 LEUKOCYTES-CE 72 % Normal 38-82 [facility] Comment on above: Performed By: #### L ZK7972, [id number], TXK159 ####Patrol Conductor: UNA ARCE ([id number])[facility] [place] (SB[facility])[address] [place] [address] [place] STOMATOCYTES IN BLOOD BY LIGHT MICROSCOPY Moderate Abnormal (none) [facility] Comment on above: Performed By: #### L JU1285, [id number], JZY991 ####Patrol Conductor: UNA ARCE ([id number])[facility] ([facility])[address] [place] [address] [place] TARGET CELLS IN BLOOD BY LIGHT MICROSCOPY Slight Abnormal (none) [facility] Comment on above: Performed By: #### L EE2564, [id number], FPL668 ####Patrol Conductor: UNA ARCE ([id number])[facility] ([facility])[address] [place] [address] [place] UNCLASSIFIED CELLS TOTAL PER COUNTED LEUKOCYTES BY MANUAL COUNT Normal [facility] Comment on above: Performed By: #### L NP4782, [id number], YLQ864 ####Patrol Conductor: UNA ARCE ([id number])[facility] ([facility])[address] [place] [address] VARIANT LYMPHOCYTES TOTAL PER COUNTED LEUKOCYTES BY MANUAL COUNT Normal [facility] Comment on above: Performed By: #### L AQ3417, [id number], IYH825 ####Patrol Conductor: UNA ARCE ([id number])[facility] ([facility])[address] NT PRO BNPon 04-05-2025 Natriuretic peptide B (Bld) [Mass/Vol] 8438 pg/mL High <450 [facility] Comment on above: Performed By: #### L AB89, VSV126, LAB67, LAB69, LAB15, JQK648, [id number], LAB20 ####Patrol Conductor: UNA ARCE ([id number])[facility] ([facility])[address] [place] [address] RETICULOCYTESon 04-05-2025 Reticulocytes/100 RBC (Bld) 2.31 % Normal [facility] Comment on above: Result Comment: Newb orn < 5%Adults 0.4 - 2.0% Performed By: #### L WT0147, [id number], JWQ119 ####Patrol Conductor: UNA ARCE ([id number])[facility] ([facility])[address] THYROID STIMULATING HORMONEo n 04-05-2025 THYROID STIMULATING HORMONE 10.19 uIU/mL High 0.35-4.94 [facility] Comment on above: Performed By: #### L AB89, RMK326, LAB67, LAB69, LAB15, MWW810, [id number], LAB20 ####Patrol Conductor: UAN ARCE ([id number])[facility] ([facility])[address] VITAMIN B12on 04-05-2025 Cobalamin (Vitamin B12) [Mass/Vol] 817 pg/mL High 213-816 [facility] Comment on above: Performed By: #### L AB89, FLR057, LAB67, LAB69, LAB15, TTA083, [id number], LAB20 ####Patrol Conductor: UNA ARCE ([id number])[facility] LAURACHRISTINAMarisol (SB[facility])[address] [place] [address] Vital Signs Date Time Vital Sign Value Performing Clinician Loulou nieto 06-22-2025 02:11-0400 Diastolic blood pressure 57 mm[Hg] Sagar [employer] DO Work Phone: [facility] 06-22-2025 02:11-0400 Heart rate 54 /min Sagar [employer] DO Work Phone: [facility] 06-22-2025 02:11-0400 Respiratory rate 18 /min Sagar [employer] DO Work Phone: [facility] 06-22-2025 02:11-0400 SaO2% (BldA) [Mass fraction] 97 % Sagar [employer] DO Work Phone: [facility] 06-22-2025 02:11-0400 Systolic blood pressure 105 mm[Hg] Sagar GoE-Ductionash DO Work Phone: [facility] 06-22-2025 00:31-0400 Body temperature 98.2 [degF] Sagar [employer] DO Work Phone: [facility] 06-17-2025 10:47-0400 SaO2% (BldA) [Mass fraction] 95 % Eber Hess MD Work Phone: [facility] 06-17-2025 10:27-0400 Body height 174 cm Eber Hess MD Work Phone: [facility] 06-17-2025 10:27-0400 Body mass index (BMI) [Ratio] 27.3 kg/m2 Eber Hess MD Work Phone: [facility] 06-17-2025 10:27-0400 Body weight 82.64 kg Eber Hess MD Work Phone: [facility] 06-17-2025 10:27-0400 Diastolic blood pressure 58 mm[Hg] Eber Hess MD Work Phone: [facility] 06-17-2025 10:27-0400 Heart rate 70 /min Eber Hess MD Work Phone: [facility] 06-17-2025 10:27-0400 Systolic blood pressure 110 mm[Hg] Eber Hess MD Work Phone: [facility] 05-03-2025 10:130400 Body height 174 cm Alejandro Jonnyynick APR N - INFORMATICS EDUCATOR Work Phone: [facility]. 05-03-2025 10:13-0400 Body mass index (BMI) [Ratio] 28.09 kg/m2 Alejandro Jonnyynick ARBORICULTURIST - INFORMATICS EDUCATOR Work Phone: [facility]. 05-03-2025 10:130400 Body weight 85.05 kg Alejandro Jonnyynick APR N - INFORMATICS EDUCATOR Work Phone: [facility]. 05-03-2025 10:13-0400 Diastolic blood pressure 62 mm[Hg] Alejandro Jonnyynick ARBORICULTURIST - INFORMATICS EDUCATOR Work Phone: [facility]. 05-03-2025 10:13-0400 Heart rate 66 /min Alejandro Jonnyynick APR N - INFORMATICS EDUCATOR Work Phone: [facility]. 05-03-2025 10:13-0400 Systolic blood pressure 106 mm[Hg] Alejandro Jonnyynick ARBORICULTURIST - INFORMATICS EDUCATOR Work Phone: [facility]. 04-17-2025 08:40-0400 Diastolic blood pressure 50 mm[Hg] Rowena Skiffey DO Work Phone: [facility] 04-17-2025 08:40-0400 Heart rate 62 /min Rowena Skiffey DO Work Phone: [facility] 04-17-2025 08:40-0400 Respiratory rate 17 /min Rowena Skiffey DO Work Phone: [facility] 04-17-2025 08:40-0400 SaO2% (BldA) [Mass fraction] 96 % Rowena Aguilar DO Work Phone: [facility] 04-17-2025 08:40-0400 Systolic blood pressure 104 mm[Hg] Rowena Aguilar DO Work Phone: [facility] 04-17-2025 05:00-0400 Body mass index (BMI) [Ratio] 31.14 kg/m2 Rowena Aguilar DO Work Phone: [facility] 04-17-2025 05:00-0400 Body weight 92.9 kg Rowena Aguilar DO Work Phone: [facility] 04-17-2025 01:47-0400 Body temperature 97.2 [degF] Rowena Aguilar [employer] Work Phone: [facility] 04-16-2025 16:41-0400 Body height 172.7 cm Rowena Aguilar [employer] Work Phone: [facility] 04-13-2025 04:37-0400 SaO2% (BldA) [Mass fraction] 95.1 % Rowena EliasZapleetanya [employer] Work Phone: [facility] 04-08-2025 21:01-0400 SaO2% (BldA) [Mass fraction] 97 % Rowena Aguilar [employer] Work Phone: [facility] 04-08-2025 17:02-0400 SaO2% (BldA) [Mass fraction] 96.1 % Rowena Lauren [employer] [facility] En[facility] Encounter Date Encounter Type Care Provider Facility Start: 06-21-2025 End: 06-22-2025 Emergency department patient visit SAGAR GILLIAM [facility]. Comment on above: Anemia due to chroni c kidney disease, unspecified CKD stage (Primary Dx) Start: 06-21-2025 ambulatory Spencer Yelena Murray ty:[facility] Start: 06-17-2025 End: 06-17-2025 ambulatory [facility] Start: 06-17-2025 End: 06-17-2025 ambulatory EBER HESS [facility] Start: 06-17-2025 End: 06-17-2025 Office outpatient visit 40 minutes Eber Hess MD Work Phone: [facility] Jan Comment on above: Chronic systolic hea rt failure (HCC) (Primary Dx) Start: 05-06-2025 End: 05-12-2025 Home visit new pt unstabl/signif new prob 75 min Yamilka Holloway ARBORICULTURIST - INFORMATICS EDUCATOR Work Phone: [facility] - [place] Comment on above: Palliative care enco unter (Primary Dx); Pleural effusion; Acute on chronic heart failure, unspecified heart failure type (HCC); Debility Start: 05-03-2025 End: 05-03-2025 ambulatory ALEJANDRO QUEEN [facility] Start: 05-03-2025 End: 05-03-2025 Office outpatient visit 25 minutes Alejandro Queen ARBORICULTURIST - INFORMATICS EDUCATOR Work Phone: [facility] - Shalom Anaya Comment on above: Chronic systolic hea rt failure (HCC) (Primary Dx); 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; Pleural effusion; Acute kidney injury superimposed on chronic kidney disease (HCC) (HCC); 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 chronic kidney disease (HCC); PAC (premature atrial contraction); Abnormal CAT scan Start: 04-19-2025 End: 04-19-2025 Orders Only Katie Engle RN [facility] [place] Comment on above: Acute congestive hea rt failure, unspecified heart failure type (HCC) (Primary Dx) Start: 04-05-2025 End: 04-17-2025 Evaluation and management of inpatient Rowena Aguilar Work Phone: [facility] Cardiac Progressive Care Unit PCU 2E Start: 11-07-2020 End: 11-07-2020 Discharged Recurring [facility]-Immunizations Procedures Date Procedure Procedure Detail Performing Clinician Start: 06-21-2025 Compatibility each u nit electronic Alannah Quiroga PA-C Work Phone: Start: 06-21-2025 End: 06-22-2025 TRANSFUSE RED BLOOD CELLS Alannah D'Ami co PA-C Work Phone: Start: 06-21-2025 Ecg routine ecg w/le ast 12 lds trcg only w/o i&r Sagar Bishoppipo DO Work Phone: Start: 06-21-2025 Antibody screen SAGAR FARLEY Comment on above: Performed By: #### L [id number] ####Patrol Conductor: UNA NAVARRO ([id number])[facility] ([facility])[address] Start: 06-21-2025 Basic metabolic pane l calcium total Alannah D'Lakhwinder PA-C Work Phone: Start: 06-21-2025 Blood typing serologic abo Alannah D'Lakhwinder PA-C Work Phone: Start: 06-21-2025 Manual Differential panel - Blood Alannah D'Lakhwinder PA-C Work Phone: Start: 06-17-2025 Basic metabolic pane l calcium total Eber Hess MD Work Phone: Start: 06-17-2025 Follow-up visit SAGAR FARLEY Start: 05-03-2025 Follow-up visit SAGAR FARLEY Start: 04-17-2025 Comprehensive metabo lic panel Precious Lewis MD Work Phone: Start: 04-17-2025 Manual Differential panel - Blood Precious Lewis MD Work Phone: Start: 04-16-2025 Comprehensive metabo lic panel Precious Lewis MD Work Phone: Start: 04-16-2025 Manual Differential panel - Blood Precious Lewis MD Work Phone: Start: 04-15-2025 OXYGEN THERAPY Precious dawn MD Work Phone: Start: 04-15-2025 BEDSIDE SPIROMETRY Lizeth Farmer ARBORICULTURIST - INFORMATICS EDUCATOR Work Phone: Start: 04-15-2025 Blood occult peroxid ase actv qual feces 1-3 spec Albaroollie Hernández MD Work Phone: Start: 04-15-2025 Radiologic exam ches t single view Yesi Farmer ARBORICULTURIST - [facility] Work Phone: Start: 04-15-2025 Comprehensive metabo lic panel Precious Lewis MD Work Phone: Start: 04-15-2025 Manual Differential panel - Blood Precious Lewis MD Work Phone: Start: 04-14-2025 OXYGEN THERAPY Precious dawn MD Work Phone: Start: 04-14-2025 Thoracentesis needle /cath pleura w/imaging Yesi Farmer APRN - [facility] Work Phone: Start: 04-14-2025 Comprehensive metabo lic panel Precious Lewis MD Work Phone: Start: 04-14-2025 Manual Differential panel - Blood Precious Lewis MD Work Phone: Start: 04-13-2025 OXYGEN THERAPY Precious dawn MD Work Phone: Start: 04-13-2025 Radiologic exam ches t single view Marian Casarez APRN - [facility] Work Phone: Start: 04-13-2025 Ecg routine ecg w/le ast 12 lds trcg only w/o i&r Marian Casarez APRN - [facility] Work Phone: Start: 04-13-2025 Blood gases any comb ination ph pco2 po2 co2 hco3 Yesi Farmer APRN - INFORMATICS EDUCATOR Work Phone: Start: 04-13-2025 Comprehensive metabo lic panel Precious Lewis MD Work Phone: Start: 04-13-2025 Manual Differential panel - Blood Precious Lewis MD Work Phone: Start: 04-12-2025 OXYGEN THERAPY Precious dawn MD Work Phone: Start: 04-12-2025 OXYGEN THERAPY Precious dawn MD Work Phone: Start: 04-12-2025 Comprehensive metabo lic panel Precious Lewis MD Work Phone: Start: 04-12-2025 Manual Differential panel - Blood Precious Lewis MD Work Phone: Start: 04-11-2025 OXYGEN THERAPY Precious dawn MD Work Phone: Start: 04-11-2025 Radiologic exam ches t single view Alejandro R Bernice ARBORICULTURIST - INFORMATICS EDUCATOR Work Phone: Start: 04-11-2025 OXYGEN THERAPY Precious dawn MD Work Phone: Start: 04-11-2025 Comprehensive metabo lic panel Precious Lewis MD Work Phone: Start: 04-11-2025 Manual Differential panel - Blood Precious Lewis MD Work Phone: Start: 04-10-2025 OXYGEN THERAPY Precious dawn MD Work Phone: Start: 04-10-2025 OXYGEN THERAPY Precious dawn MD Work Phone: Start: 04-10-2025 Comprehensive metabo lic panel Precious Lewis MD Work Phone: Start: 04-10-2025 Manual Differential panel - Blood Precious Lewis MD Work Phone: Start: 04-09-2025 OXYGEN THERAPY Precious dawn MD Work Phone: Start: 04-09-2025 AEROBIC AND ANAEROBI C CULTURE WITH STAIN Precious Lewis MD Work Phone: Start: 04-09-2025 BODY FLUID CELL COUN T WITH REFLEX DIFF Precious Lewis MD Work Phone: Start: 04-09-2025 BODY FLUID DIFFERENTIAL Precious Lewis MD Work Phone: Start: 04-09-2025 Culture bacterial an y source anaerobic iso&id Precious Lewis MD Work Phone: Start: 04-09-2025 Cytp slctv cell enha ncement interpj xcpt c/v Precious Lewis MD Work Phone: Start: 04-09-2025 Ph body fluid not el sewhere specified Precious Lewis MD Work Phone: Start: 04-09-2025 Radiologic exam ches t single view Precious Lewis MD Work Phone: Start: 04-09-2025 Thoracentesis needle /cath pleura w/imaging Precious Lewis MD Work Phone: Start: 04-09-2025 Lactate dehydrogenase ldh Precious Lewis MD Work Phone: Start: 04-09-2025 Radiologic exam ches t single view Precious Lewis MD Work Phone: Start: 04-09-2025 AEROBIC AND ANAEROBI C CULTURE WITH STAIN Precious Lewis MD Work Phone: Start: 04-09-2025 BODY FLUID CELL COUN T WITH REFLEX DIFF Precious Lewis MD Work Phone: Start: 04-09-2025 BODY FLUID DIFFERENTIAL Precious Lewis MD Work Phone: Start: 04-09-2025 Culture bacterial an y source anaerobic iso&id Precious Lewis MD Work Phone: Start: 04-09-2025 Cytp slctv cell enha ncement interpj xcpt c/v Precious Lewis MD Work Phone: Start: 04-09-2025 Ph body fluid not el sewhere specified Precious Lewis MD Work Phone: Start: 04-09-2025 Thoracentesis needle /cath pleura w/imaging Precious Lewis MD Work Phone: Start: 04-09-2025 OXYGEN THERAPY Precious dawn MD Work Phone: Start: 04-09-2025 Radiologic exam ches t single view Precious Lewis MD Work Phone: Start: 04-09-2025 Comprehensive metabo lic panel Precious Lewis MD Work Phone: Start: 04-09-2025 Manual Differential panel - Blood Precious Lewis MD Work Phone: Start: 04-08-2025 Blood gases any comb ination ph pco2 po2 co2 hco3 Precoius Lewis MD Work Phone: Start: 04-08-2025 OXYGEN THERAPY Precious dawn MD Work Phone: Start: 04-08-2025 Blood gases any comb ination ph pco2 po2 co2 hco3 Westley Martinez MD Work Phone: Start: 04-08-2025 Radiologic exam ches t single view Westley Martinez MD Work Phone: Start: 04-08-2025 Glucose quantitative blood xcpt reagent strip Westley Martinez MD Work Phone: Start: 04-08-2025 OXYGEN THERAPY Precious dawn MD Work Phone: Start: 04-08-2025 Comprehensive metabo lic panel Albaro Hernández MD Work Phone: Start: 04-08-2025 Manual Differential panel - Blood Albaro Hernández MD Work Phone: Start: 04-07-2025 OXYGEN THERAPY Precious dawn MD Work Phone: Start: 04-07-2025 OXYGEN THERAPY Precious dawn MD Work Phone: Start: 04-07-2025 Comprehensive metabo lic panel Albaro Hernández MD Work Phone: Start: 04-07-2025 Manual Differential panel - Blood Albaro Hernández MD Work Phone: Start: 04-06-2025 OXYGEN THERAPY Precious dawn MD Work Phone: Start: 04-06-2025 TTE w or wo fol wcon,Doppler Albaro Hernández MD Work Phone: Start: 04-06-2025 Ct abdomen & pelvis w/o contrast material Albaro Hernández MD Work Phone: Start: 04-06-2025 Ct thorax w/o contra st material Albaro Hernández MD Work Phone: Start: 04-06-2025 Comprehensive metabo lic panel Albaro Hernández MD Work Phone: Start: 04-06-2025 Manual Differential panel - Blood Albaro Hernández MD Work Phone: Start: 04-05-2025 Compatibility each u nit electronic Rowena Aguilar DO Work Phone: Start: 04-05-2025 End: 04-06-2025 TRANSFUSE RED BLOOD CELLS Albaro Santos Work Phone: Start: 04-05-2025 Assay of troponin quantitative Albaro Hernández MD Work Phone: Start: 04-05-2025 Assay of ferritin Saeid Hernández MD Work Phone: Start: 04-05-2025 Lipid panel Albaro king MD Work Phone: Start: 04-05-2025 OXYGEN THERAPY Precious dawn MD Work Phone: Start: 04-05-2025 End: 04-05-2025 TRANSFUSE RED BLOOD CELLS Albaro Santos Work Phone: Start: 04-05-2025 Antibody screen SAGAR FARLEY Comment on above: Performed By: #### L [id number] ####Patrol Conductor: UNA NAVARRO ([id number])[facility] ([facility])[address] Start: 04-05-2025 ABO and Rh group [Ty pe] in Blood by Confirmatory method Rowena Aguilar DO Work Phone: Start: 04-05-2025 Blood typing serologic abo Rowena Aguilar DO Work Phone: Start: 04-05-2025 Radiologic exam ches t single view Rowena Aguilar DO Work Phone: Start: 04-05-2025 Comprehensive metabo lic panel Rowena Aguilar DO Work Phone: Start: 04-05-2025 Manual Differential panel - Blood Rowena Aguilar DO Work Phone: Start: 04-05-2025 Ecg routine ecg w/le ast 12 lds i&r only Rowena Aguilar DO Work Phone: Start: 04-05-2025 OXYGEN THERAPY Precious dawn MD Work Phone: Start: 04-05-2025 Lipid 1996 panel - S alexandrea or Plasma Katie Engle RN Plan of Treatment Date Care Activity Detail Author Start: 04-05-2030 Lipid panel [facility] Start: 06-21-2026 Creatinine measurement Creatinine Level [facility] Start: 06-21-2026 Potassium measurement Potassium Level [facility] Start: 06-17-2026 Creatinine measurement Creatinine Level [facility] Start: 06-17-2026 Potassium measurement Potassium Level [facility] Start: 04-17-2026 Creatinine measurement [facility] Start: 04-17-2026 Potassium measurement [facility] Start: 04-06-2026 Echocardiography Echocardiogram [facility] Start: 04-06-2026 [facility] Start: 11-03-2025 Depression Monitoring Depression Monitoring [facility] Start: 06-17-2025 End: 06-17-2025 Patient encounter procedure 06/17/2025 10:20 AM EDT Office Visit [facility] Cardiology - [address] [place] [address] Eber Hess MD [address] [place] [address] [address] [place] [address] [facility] Cardiology [facility] Start: 05-18-2025 End: 05-18-2025 ambulatory [facility] Pulmonary and Sleep [facility] Start: 05-18-2025 End: 05-18-2025 Patient encounter procedure 05/18/2025 9:15 AM EDT Office Visit [facility] Pulmonary and Sleep Medicine [address] [address] Nelson Garcia MD [address] [place] [address] [facility] Pulmonary and Sleep Medicine [facility] Start: 05-10-2025 COVID-19 Vaccine ( season) COVID-19 Vaccine ( season) [facility] Start: 05-10-2025 Influenza vaccination Influenza Vaccine (#1) [facility] Start: 05-10-2025 [facility] Start: 04-22-2025 End: 04-22-2025 ambulatory [facility] Start: 04-22-2025 End: 04-22-2025 Patient encounter procedure 04/22/2025 10:00 AM EDT Office Visit [facility] [address] [facility] [address] [place] [id number] Marian Casarez APRN - INFORMATICS EDUCATOR [address] [facility] [address] [place], [place] [id number] [facility] [place] Start: 05-10-2024 COVID-19 Vaccine ( season) COVID-19 Vaccine ( season) [facility] Start: 05-10-2024 [facility] Start: 2011 RSV Immunization for Adults (1 - 1-dose 75+ series) RSV Immunization for Adults (1 - 1-dose 75+ series) [facility] Start: 2011 [facility] Start: 1986 Zoster Vaccines (1 of 2) Zoster Vaccines (1 of 2) [facility] Start: 1986 [facility] Start: 1955 DTaP/Tdap/Td Vaccines (1 - Tdap) DTaP/Tdap/Td Vaccines (1 - Tdap) [facility] Start: 1955 Pneumococcal Vaccine: 50+ Years (1 of 2 - PCV) Pneumococcal Vaccine: 50+ Years (1 of 2 - PCV) [facility] Start: 1955 [facility] Start: 1948 Depression Monitoring Depression Monitoring [facility] Start: 1948 [facility] Start: 1936 Medicare Annual Wellness (AWV) Medicare Annual Wellness (AWV) [facility] Start: 1936 [facility] Bedside spirometry [facility] Work Phone: End: 04-05-2025 Hemoglobin [Mass/volume] in Blood [facility] Work Phone: End: 04-05-2025 Hemoglobin.gastrointestina l.lower [Presence] in Stool by Immunoassay --1st specimen [facility] Work Phone: Immunizations Immunization Date Immunization Notes Care Provider Fa cility 12-05-2020 Covid (Modern) [facility] Work Phone: 11[facility]07-2020 [facility] Work Phone: 06-30-2020 influenza virus vaccine, unspecified formulation Katie Engle RN [facility] Payers Date Payer Category Payer Self-pay [id number] 2017 [facility] Managed Care - [facility] [place] [address] [id number] 2017 Medicare supplementa l policy (as second payer) [id number] 2017 Unknown [id number] 2001 Medicare [id number] 2001 Medicare [id number] Unknown [id number] Social History Date Type Detail [facility] Work Phone: Start: 1935 Sex Assigned At Male [facility] Work Phone: Start: 04-08-2025 End: 05-03-2025 Tobacco smoking status NHIS Never smoked tobacco [facility] Start: 04-08-2025 End: 05-03-2025 History of Social function [facility] Start: 04-08-2025 End: 05-03-2025 [facility] [employer] [facility] Has the [employer], or Recommend threatened to shut off services in your home in past 12Mo No [facility] How often to you hav e a drink containing alcohol? Never [facility] How many standard drinks containing alcohol do you have on a typical day? [facility] (I/We) worried wherosa er (my/our) food would run out before (I/we) got money to buy more. Never true [facility] Start: 1935 Sex assigned at [facility] Start: 04-05-2025 Sex Male (finding) [facility] Start: 05-03-2025 End: 06-15-2025 Tobacco use and exposure Smokeless tobacco non-user [facility] Start: 06-15-2025 Tobacco smoking stat [facility] Ex-smoker [facility] History of tobacco use Current smoker [facility] History of tobacco use Cigarette Smoker [facility] Start: 06-17-2025 Alcoholic beverage intake Ex-drinker (finding) [facility] Goals Date Patient Goal Desired Activity /State Functional Status Date Assessment Result Facility 05-03-2025 Patient Health Questionnaire 2 item (PHQ- 2) [Reported] [facility] Clinical Notes 04-05-2025 to 06-21-2025 Delores Bello RN - 06/21/2025 11:41 PM Julian Bello RN - 06/21/2025 11:41 PM Argelia Gilliam DO - 06/21/2025 7:31 PM Julian Bello RN - 06/21/2025 7:31 PM EDTDischarge Instructions Note Date & Type Note Facility 06-21-2025 Emergency department Note This RN at bedside for first 15 minutes of blood transfusion. Pt tolerating transfusion. VS updated in system. [facility] 06-21-2025 Emergency department Note This RN at bedside for first 15 minutes of blood transfusion. Pt tolerating transfusion. VS updated in system. Emergency Department Encounter [facility] ED Patient: Mary Charles : 1935 Date of Evaluation: 06/21/2025 ED Supervising Physician: Sagar Gilliam DO I personally saw Mary Charles and made/approved the management plan and take responsibility for the patient management. This will serve as my Supervisory note and shared attestation. I did perform a substantive portion of the visit including all aspects of the Medical Decision Making. I wore appropriate PPE for the entirety of this encounter. In brief, Mary Charles is a 89 y.o. that presents to the emergency department lab work today from [facility] showed hemoglobin of 6.8. Patient is otherwise asymptomatic. Has chronic anemia and has had extensive workup in the past. Denies any blood in his stool or melanotic stools. Focused exam: Alert and oriented 4, no acute distress, nontoxic appearing, Pulm: clear to auscultation bilaterally, Cardiac: regular rate and rhythm, Abdomen: soft nontender, Neuro: no focal motor or sensory deficits. Brief ED course/MDM: Anemia with hemoglobin 6.9 on outpatient labs. Hemoglobin is 7.4 on repeat today, will transfuse a unit of blood and discharged back to [facility] facility. Diagnostics interpreted by me: I personally discussed the patient's management with other clinicians: All diagnostic, treatment, and disposition decisions were made by myself in conjunction with the RIGOBERTO. For all further details of the patient's emergency department visit, please see their documentation. (Comment: Please note this report has been produced using speech recognition software and may contain errors related to that system including errors in grammar, punctuation, and spelling, as well as words and phrases that may be inappropriate. If there are any questions or concerns please feel free to contact the dictating provider for clarification.) Sagar Gilliam DO Acute Care [facility] Sagar Gilliam DO 06/21/252211 Patient arrives via EMS from [facility] following bloodwork that showed low hemoglobin. No overt signs of bleeding on arrival. Patient A&O4. Patient does endorse previous blood transfusions. documented in this encounter [facility] 06-21-2025 Emergency department Triage note Patient arrives via EMS from [facility] following bloodwork that showed low hemoglobin. No overt signs of bleeding on arrival. Patient A&O4. Patient does endorse previous blood transfusions. [facility] 06-21-2025 Physician Emergency department Note Emergency Department Encounter [facility] ED Patient: Mary Charles : 1935 Date of Evaluation: 06/21/2025 ED Supervising Physician: Sagar Gilliam DO I personally saw Mary Charles and made/approved the management plan and take responsibility for the patient management. This will serve as my Supervisory note and shared attestation. I did perform a substantive portion of the visit including all aspects of the Medical Decision Making. I wore appropriate PPE for the entirety of this encounter. In brief, Mary Charles is a 89 y.o. that presents to the emergency department lab work today from [facility] showed hemoglobin of 6.8. Patient is otherwise asymptomatic. Has chronic anemia and has had extensive workup in the past. Denies any blood in his stool or melanotic stools. Focused exam: Alert and oriented 4, no acute distress, nontoxic appearing, Pulm: clear to auscultation bilaterally, Cardiac: regular rate and rhythm, Abdomen: soft nontender, Neuro: no focal motor or sensory deficits. Brief ED course/MDM: Anemia with hemoglobin 6.9 on outpatient labs. Hemoglobin is 7.4 on repeat today, will transfuse a unit of blood and discharged back to [facility] facility. Diagnostics interpreted by me: I personally discussed the patient's management with other clinicians: All diagnostic, treatment, and disposition decisions were made by myself in conjunction with the RIGOBERTO. For all further details of the patient's emergency department visit, please see their documentation. (Comment: Please note this report has been produced using speech recognition software and may contain errors related to that system including errors in grammar, punctuation, and spelling, as well as words and phrases that may be inappropriate. If there are any questions or concerns please feel free to contact the dictating provider for clarification.) Sagar Gilliam DO [employer] Sagar Gilliam DO 06/21/252211 [facility] Work Phone: 06-17-2025 History of Presen t illness Narrative [facility] Cardiology [facility] CARDIOLOGY - [address] [facility] [id number] Dept: [phone] Dept Visit type: Established : 1935 Chief Complaint: Chief Complaint Patient presents with Follow-up 6 Week History of Present Illness: Mary Charles is a 89 y.o. male with HFrEF, Coronary artery disease who is here for followup. Prior events : He presented to [facility] 03/2025 with progressive shortness of breath, hypoxic respiratory failure. Chest x-ray with pulmonary edema and bilateral pleural effusions. High-sensitivity troponins 29-28, proBNP 8438, creatinine 1.44, hemoglobin 5.6 status post 2 units PRBC. Echo with LVEF 22% ,global hypokinesis,. Cardiology was consulted for new heart failure. He was seen in consult by Dr. Scherer and due to age, anemia, and frailty was recommended a conservative palliative approach. Additionally he has GI following for mural thickening involving the cecum and terminal ileum with concern for neoplasm or inflammation. GI plans for EGD colonoscopy when stabilized from a cardiac standpoint. 04/08/2025 he transferred to the ICU with acute hypercarbia requiring NIV and bilateral thoracentesis. He was changed to oral diuretic on 04/11/2025, however when he was seen 04/12/2025 he required additional IV Lasix due to chest x-ray with some pulmonary congestion. He was also placed on BiPAP per pulmonology. He had repeat left thoracentesis with 600 mL off. He was seen by Palliative Care and hospice was discussed, but he declined. He was discharged to SNF. He is here for followup and establish care. His daughter accompanies him today. He denies chest pain,sob,orthopnea or pnd. He says he is feeling well. He denies syncope,presyncope or palpitations. Daughter and patient want conservative management with medications. Past Medical History: Medical History[1] Past Surgical History Surgical History[2] Family History Family History[3] Social History Social History[4] Allergies: Allergies[5] Medications: Current Medications[6] Review of Systems: Review of Systems Constitutional: Negative for activity change, chills, diaphoresis, fatigue and fever. HENT: Negative for nosebleeds and trouble swallowing. Eyes: Negative for discharge and visual disturbance. Respiratory: Negative for apnea, cough, chest tightness, shortness of breath and wheezing. Cardiovascular: Negative for chest pain, palpitations and leg swelling. Gastrointestinal: Negative for abdominal distention, abdominal pain, blood in stool, diarrhea, nausea and vomiting. Endocrine: Negative for cold intolerance and heat intolerance. Genitourinary: Negative for hematuria. Musculoskeletal: Positive for gait problem. Negative for myalgias. Skin: Negative for color change and rash. Neurological: Negative for dizziness, seizures, syncope, facial asymmetry, speech difficulty, weakness, light-headedness, numbness and headaches. Hematological: Does not bruise/bleed easily. Psychiatric/Behavioral: Negative for dysphoric mood. Physical Examination: Vitals: Vitals: 06/17/25 1027 06/17/25 1047 BP: 110/58 BP Location: Right arm Patient Position: Sitting BP Cuff Size: Adult Pulse: 70 SpO2: 91% 95% Weight: 182 lb 3.2 oz (82.6 kg) Height: 5' 8.5 (1.74 m) Body mass index is 27.3 kg/m . Physical Exam Constitutional: Appearance: Normal appearance. HENT: Head: Normocephalic. Mouth/Throat: Pharynx: No oropharyngeal exudate. Eyes: General: No scleral icterus. Right eye: No discharge. Left eye: No discharge. Cardiovascular: Rate and Rhythm: Normal rate and regular rhythm. Heart sounds: No murmur heard. No gallop. Pulmonary: Effort: No respiratory distress. Abdominal: General: There is no distension. Tenderness: There is no abdominal tenderness. Musculoskeletal: General: Normal range of motion. Cervical back: Normal range of motion. Right lower leg: No edema. Left lower leg: No edema. Skin: General: Skin is warm and dry. Neurological: Mental Status: He is alert and oriented to person, place, and time. Laboratory Tests: Lab Results Component Value Date WBC 12.0 (H) 04/17/2025 HGB 7.9 (L) 04/17/2025 HCT 27.9 (L) 04/17/2025 MCV 84.0 04/17/2025 PLT 419 04/17/2025 Lab Results Component Value Date GLUCOSE 94 04/17/2025 CALCIUM 8.4 (L) 04/17/2025 NA 138 04/17/2025 K 3.6 04/17/2025 CO2 40 (H) 04/17/2025 CL 88 (L) 04/17/2025 BUN 46 (H) 04/17/2025 CREATININE 1.67 (H) 04/17/2025 @LASTCMP@ Lab Results Component Value Date CHOL 89 04/05/2025 Lab Results Component Value Date TRIG 60 04/05/2025 Lab Results Component Value Date HDL 29 (L) 04/05/2025 Lab Results Component Value Date LDLCALC 48 04/05/2025 NT PRO BNP Date Value Ref Range Status 04/05/2025 8,438 (H) <450 pg/mL Final Cardiac Tests: Last CT Chest 04/05/25: Findings: The aorta and main pulmonary artery are grossly of normal caliber. The right pulmonary artery measures approximately 3.7 cm in diameter. The ascending thoracic aorta measures 3.7 cm in diameter. Mild calcification of the aortic arch. Extensive diffuse coronary artery calcification present with question coronary stents. Heart size is enlarged. There is no significant adenopathy demonstrated. Small subcentimeter mediastinal lymph nodes. Moderate to large bilateral pleural effusions with bilateral infiltrates and/or compressive atelectasis of the lungs. Presumed component of pulmonary edema with some coarsening of the interstitium. Dense calcification along the origin of the celiac artery, incompletely covered. Moderate to large osteophytes along the right anterior thoracic spine at multiple levels. IMPRESSION: Impression: Findings thought to most likely represent CHF. A superimposed infectious etiology is not excluded. The right pulmonary artery appears enlarged. Last Echo 04/05/25: Left Ventricle: Left ventricle is mildly dilated. Normal wall thickness. Severely reduced left ventricular systolic function. EF by 2D Simpsons Biplane is 22%. Severe global hypokinesis present. Right Ventricle: Not well visualized. Right ventricle size is normal. Normal systolic function. Mitral Valve: Moderate (2+) regurgitation. Tricuspid Valve: Severely elevated RVSP. RVSP is 66 mmHg. Left Atrium: Left atrium is mildly dilated. Pericardium: Left pleural effusion. Technically difficult study. Assessment and Plan: Heart Failure reduced Ejection Fraction LVEF 22% with severe global hypokinesis NYH Class II, euvolemic on examinatiuon -Etiology unclear, extensive coronary artery calcification on CT chest. Medical management based on age, frailty and anemia. Spoke to patients daughter and patient, they do not want to pursue any invasive testing or invasive treatment. So our focus is medical management and GDMT. Continue Toprol XL 50 mg daily -Continue spironolactone 25 mg daily -Continue torsemide 40 mg daily -Continue hydralazine 10 mg TID -Unable to further titrate GDMT due to BP CBC and BMP ordered 2. Coronary Artery Disease Extensive diffuse coronary artery calcification present per CT Chest 04/05/25 No angina. Not a good candidate for invasive work-up at this point given frailty and anemia. LDL 48 on admission -Not on aspirin given anemia -Continue Toprol 25 mg daily -Continue atorvastatin 20 mg daily 3. Frequent PAC's -Continue Toprol 25 mg daily 4. Anemia Management per PCP and GI [1] History reviewed. No pertinent past medical history. [2] History reviewed. No pertinent surgical history. [3] Family History Problem Relation Name Age of Onset Tuberculosis Father [4] Social History Tobacco Use Smoking status: Former Current packs/day: 0.25 Types: Cigarettes Smokeless tobacco: Never Vaping Use Vaping status: Never Used Substance Use Topics Alcohol use: Not Currently Drug use: Never [5] No Known Allergies [6] Current Outpatient Medications: atorvastatin (Lipitor) 20 MG tablet, Take 1 tablet (20 mg) by mouth Nightly., Disp: 30 tablet, Rfl: 1 hydrALAZINE (Apresoline) 10 MG tablet, Take 1 tablet (10 mg) by mouth 3 times daily., Disp: 90 tablet, Rfl: 1 metoprolol succinate XL (Toprol-XL) 25 MG 24 hr tablet, Take 1 tablet (25 mg) by mouth daily. Do not crush or chew., Disp: 30 tablet, Rfl: 11 senna-docusate sodium (Senokot-S) 8.6-50 MG tablet, Take 2 tablets by mouth 2 times daily. (Patient taking differently: Take 2 tablets by mouth 2 times daily as needed.), Disp: 120 tablet, Rfl: 11 spironolactone (Aldactone) 25 MG tablet, Take 1 tablet (25 mg) by mouth daily., Disp: 30 tablet, Rfl: 11 Torsemide 40 MG tablet, Take 40 mg by mouth daily., Disp: 40 tablet, Rfl: 1 documented in this encounter [facility] 05-06-2025 History of Presen t illness Narrative Images from the original note were not included. [facility] Palliative Care Site of Care: [facility] Chief Complaint: Mary Charles is a 89 y.o. male with chief complaint of No chief complaint on file.. Assessment/Plan Goals of care Pt is alert and oriented x4 DNRRCA/DNI Goals are to do all therapies to be able to return to his home again Pleural effusion 04/09/2025 1 liter removed from left and 600 ml from the right 04/14/25 left thoracentesis removed 650 ml clear gold fluid Heart failure with reduced EF 04/06/25 DEVIKA showed EF 22% Torsemide 40 mg daily started with recent admission Following with cards in clinic Was not interested in hospice conversation today Debility Pt now at [facility] Jan Wills Working with PT/OT Palliative encounter Will continue to follow in the SNF and if needed will follow in his home setting Discussed the plan of care including addressing questions and concerns with patient and nurse Total of 75 minutes spent on this encounter including Chart review, Patient visit and exam, Documentation in EHR, Care coordination, and Communicating with primary attending or other consultants. Follow-up: 1-2 weeks Subjective: Mary Charles is a 89 y.o. male who was admitted for shortness of breath and lower extremity edema. CT chest with pulmonary edema and bilateral pleural effusions. ICU consulted on 04/08 for somnolence and increased dyspnea. Repeat CXR showed worsening pleural effusions and pulmonary edema. ABG with acute on possible chronic hypercarbia. Patient was transferred to ICU for NIV. S/p bilat thoracentesis. Respiratory status improved and patient was transferred out of ICU service on 04/10/25 Palliative had seen in admission and I was asked to follow in the facility and home once discharged if needed. Met with pt at bedside. He was happy to have a visitor today and asked that I grab a chair a sit for awhile. Pt lives [facility]. He reports he had not seen provider for himself as he was too busy caring for his . He noticed his sob increasing over weeks and kids talked him into seeking ER evaluation. Now wearing O2 he is feeling tired and low energy. Is trying to work with therapies as he does wish to return to his own home again. Is newly incont of bowel and bladder since recent admission. He has a decent appetite, sleeps good - maybe too much. He has no pain this visit but has some chest wall pain and right shoulder pains intermittently, some depression yet with 's passing. Doesn't feel as though he got closure with her dying at that hospital. Misses her a lot. He has clear lungs, good bowel sounds, no edema. Tongue pink/moist. Home is a 1 level home he does have basement with laundry. 1 daughter and 1 son both live out of state. Pain Assessment Location: right chest wall and right shoulder Description: aching Frequency:Irregularly Duration: month(s) Alleviating Factors: pain medication, lying down, and heating pad Exacerbating Factors: unable to associate with any factor Effect:Sleep Patient recently discharged from: Hospital Nutrition: Good appetite Functional Status: Dependent for ADLs Falls: No Current Interventions: PT, OT, and penitentiary Current Assistive Devices: walker and wheelchair ROS: See palliative care ROS/ESAS below; All other systems were reviewed and are negative. [place] Symptom Assessment Score [place] Score Pain Score 0 Tiredness Score 3 Nausea Score 0 Depression Score 0 Anxiety Score 2 Drowsiness Score 0 Anorexia Score (0= eating well,10= not eating) 1 Wellbeing Score (10= worst sense of well-being) 2 Constipation 0 Dyspnea Score (0= no shortness of breath) 1 Assessed By: patient Palliative Care Assessments: Goals of care: Continue Current Management and Remain at Home Advanced Directives: Health Care Power of [facility] Partner Functional Assessment: PPS 40% mainly in bed; can't do any work/extensive disease; mainly assistance; normal or reduced intake; full or drowsy or confusion Prognosis: uncertain at this time Spiritual Assessment: No spiritual distress identified Bereavement and Grief: Grief Issues Identified PDMP/OARRS Reviewed: reviewed Social history: Marital status: Children: yes 2 Living status: alone 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 Constitutional: General: He is awake. Appearance: He is well-developed. Interventions: Nasal cannula in place. HENT: Head: Normocephalic and atraumatic. Right Ear: External ear normal. Left Ear: External ear normal. Nose: Nose normal. Mouth/Throat: Mouth: Mucous membranes are moist. Pharynx: Oropharynx is clear. Eyes: General: Right eye: No discharge. Left eye: No discharge. Conjunctiva/sclera: Conjunctivae normal. Cardiovascular: Rate and Rhythm: Normal rate. Pulses: Normal pulses. Pulmonary: Effort: Pulmonary effort is normal. Breath sounds: Normal breath sounds. Abdominal: General: Bowel sounds are normal. Palpations: Abdomen is soft. Genitourinary: Comments: incont Musculoskeletal: General: Normal range of motion. Cervical back: Normal range of motion. Right lower leg: No edema. Left lower leg: No edema. Skin: General: Skin is warm and dry. Neurological: Mental Status: He is alert and oriented to person, place, and time. Psychiatric: Mood and Affect: Mood normal. Behavior: Behavior normal. Behavior is cooperative. Thought Content: Thought content normal. Judgment: Judgment normal. Opiate Prescribing (If prescribing, add dot phrase .OPIATEPRESCRIBING) None per palliative Opiate Risk Assessment Tool SOAPP given no SOAPP score: Red Flags for Abuse or Diversion: None Identified Results/Verification of Data Review Objective data reviewed (must include dates reviewed for labs, imaging reports and other specialty notes): Reviewed provider notes from admission, reviewed labs from 04/17/25 mag level, CMP, CBC. Reviewed thoracentesis on left 04/14/25 Data in Support of Terminal Illness: Is patient hospice appropriate? TBD Yamilka Holloway, ARBORICULTURIST - INFORMATICS EDUCATOR [1] No past medical history on file. [2] No past surgical history on file. [3] No family history on file. [4] Social History Tobacco Use Smoking status: Never Smokeless tobacco: Never [5] Current Outpatient Medications: atorvastatin (Lipitor) 20 MG tablet, Take 1 tablet (20 mg) by mouth Nightly., Disp: 30 tablet, Rfl: 1 hydrALAZINE (Apresoline) 10 MG tablet, Take 1 tablet (10 mg) by mouth 3 times daily., Disp: 90 tablet, Rfl: 1 metoprolol succinate XL (Toprol-XL) 25 MG 24 hr tablet, Take 1 tablet (25 mg) by mouth daily. Do not crush or chew., Disp: 30 tablet, Rfl: 11 senna-docusate sodium (Senokot-S) 8.6-50 MG tablet, Take 2 tablets by mouth 2 times daily., Disp: 120 tablet, Rfl: 11 spironolactone (Aldactone) 25 MG tablet, Take 1 tablet (25 mg) by mouth daily., Disp: 30 tablet, Rfl: 11 Torsemide 40 MG tablet, Take 40 mg by mouth daily., Disp: 40 tablet, Rfl: 1 [6] No Known Allergies documented in this encounter [facility] 05-03-2025 History of Presen t illness Narrative Images from the original note were not included. [facility] - [address] [facility] [id number] Dept: [phone] Dept Visit type: Established : 1935 Reason for Visit: Hospital Follow-up and Congestive Heart Failure Assessment and Plan 1. 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 No current HF symptoms and euvolemic on exam. - continue Toprol 25 mg po daily - continue hydralazine 10 mg po TID - continue spironolactone 25 mg p.o. daily - continue torsemide 40 mg po daily - unable to titrate further GDMT 2/2 low BP -not a good candidate for invasive work up at this point due to frailty, anemia - plan repeat TTE in 3 months for re-evaluation of EF 2. 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 Assessment & Plan: Suspected CAD causing HFrEF. NO angina. - no ASA 2/2 anemia - continue Toprol 25 mg po daily - continue atorvastatin 20 mg po daily - not a candidate or invasive workup due to anemia, advanced age and frailty 3. Pleural effusion Assessment & Plan: Bedside thoracentesis 04/09/2025 with 1 L removed from the left and 600 mL removed from the right. Repeat left thoracentesis 04/14/2025 with 600 mL removed. - continue to monitor, appears euvolemic today 4. Acute kidney injury superimposed on chronic kidney disease (HCC) (HCC) Assessment & Plan: Creatinine 1.46 on admission. Peak creatinine 1.78. Most recent creatinine 1.8 per labs 04/26/2025 - Continue to monitor - may have to accept a higher creatinine to keep him out of HF 5. 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 chronic kidney disease (HCC) Assessment & Plan: Anemia likely due to a combination of CKD and GI source. Per GI, EGD and colonoscopy was recommended as outpatient once he was stable. Hemoglobin on admission 5.6 and he received multiple units of RBCs. Also received IV iron. Negative FOBT 04/15/2025. Hgb 7.9 on discharge. Hgb 8.2 per labs 04/26/[address] [facility]. -No aspirin due to anemia - continue to monitor 6. PAC (premature atrial contraction) Assessment & Plan: Noted to have irregular heart rhythm during hospitalization and multiple EKGs show sinus rhythm with frequent PACs. -Continue Toprol 25 mg p.o. daily 7. Abnormal CAT scan Assessment & Plan: CT abdomen with mural thickening involving the cecum and terminal ileum concern for neoplasm versus inflammation. Seen by GI with plan for EGD and colonoscopy once stable. -GI follow-up Follow up in about 6 weeks (around 06/14/2025). Wants to establish in [place]. Subjective No prior history as he has not been to a doctor for many years He presented to [facility] 03/2025 with progressive shortness of breath, hypoxia and edema. Chest x-ray with pulmonary edema and bilateral pleural effusions. High-sensitivity troponins 29-28, proBNP 8438, creatinine 1.44, hemoglobin 5.6 status post 2 units PRBC. Cardiology was consulted for new heart failure. He was seen in consult by Dr. Scherer and due to age, anemia, and frailty was recommended a conservative palliative approach. Additionally he has GI following for mural thickening involving the cecum and terminal ileum with concern for neoplasm or inflammation. GI plans for EGD colonoscopy when stabilized from a cardiac standpoint. 04/08/2025 he transferred to the ICU with acute hypercarbia requiring NIV and bilateral thoracentesis. He was changed to oral diuretic on 04/11/2025, however when he was seen 04/12/2025 he required additional IV Lasix due to chest x-ray with some pulmonary congestion. He was also placed on BiPAP per pulmonology. He had repeat left thoracentesis with 600 mL off. He was seen by Palliative Care and hospice was discussed, but he declined. He was discharged to SNF. Today, he is feeling better. His SOB and edema is improved. He denies CP, PND, orthopnea, palpitations, syncope. His weight per the SNF has been stable at 193 lbs. His weight in the office today is 187 lbs. He remains on 2L O2. Mary Charles Review of Systems Constitutional: Negative for activity change, chills, diaphoresis, fatigue and fever. HENT: Negative for nosebleeds and trouble swallowing. Eyes: Negative for visual disturbance. Respiratory: Positive for shortness of breath (improved). Negative for apnea, cough, chest tightness and wheezing. Cardiovascular: Negative for chest pain, palpitations and leg swelling (resolved). Gastrointestinal: Negative for abdominal distention, abdominal pain, blood in stool, diarrhea, nausea and vomiting. Genitourinary: Negative for hematuria. Musculoskeletal: Negative for gait problem and myalgias. Skin: Negative for color change and rash. Neurological: Negative for dizziness, syncope, weakness and light-headedness. Hematological: Does not bruise/bleed easily. Psychiatric/Behavioral: Negative for dysphoric mood. Allergies[1] Current Medications[2] Medical History[3] Social History Tobacco Use Smoking status: Never Smokeless tobacco: Never Substance Use Topics Alcohol use: Not on file Surgical History[4] Family History[5] Objective Vitals: 05/03/25 1013 BP: 106/62 BP Location: Right arm Patient Position: Sitting BP Cuff Size: Large adult Pulse: 66 Weight: 187 lb 8 oz (85 kg) Height: 5' 8.5 (1.74 m) Physical Exam Vitals reviewed. Constitutional: General: He is not in acute distress. Appearance: Normal appearance. HENT: Head: Normocephalic and atraumatic. Mouth/Throat: Mouth: Mucous membranes are moist. Pharynx: Oropharynx is clear. Eyes: General: No scleral icterus. Extraocular Movements: Extraocular movements intact. Neck: Vascular: No carotid bruit, hepatojugular reflux or JVD. Cardiovascular: Rate and Rhythm: Normal rate and regular rhythm. Pulses: Normal pulses. Heart sounds: Normal heart sounds, S1 normal and S2 normal. No murmur heard. Pulmonary: Effort: Pulmonary effort is normal. Breath sounds: Examination of the left-lower field reveals rales. Rales (fine) present. Abdominal: General: Abdomen is flat. Bowel sounds are normal. There is no distension. Palpations: Abdomen is soft. Tenderness: There is no abdominal tenderness. Musculoskeletal: Right lower leg: No edema. Left lower leg: No edema. Skin: General: Skin is warm and dry. Coloration: Skin is pale. Neurological: General: No focal deficit present. Mental Status: He is alert and oriented to person, place, and time. Psychiatric: Attention and Perception: Attention normal. Mood and Affect: Mood normal. Speech: Speech normal. Cognition and Memory: Cognition normal. Data Reviewed and Summarized EF BP Date Value Ref Range Status 04/06/2025 22 (A) 55 - 100 % Final Review of tests/labs done/ordered within my specialty: 04/05/25 TRANSTHORACIC ECHOCARDIOGRAM (TTE) COMPLETE (CONTRAST/BUBBLE/3D PRN) 04/06/2025 12:42 PM (Final) Interpretation Summary Left Ventricle: Left ventricle is mildly dilated. Normal wall thickness. Severely reduced left ventricular systolic function. EF by 2D Simpsons Biplane is 22%. Severe global hypokinesis present. Right Ventricle: Not well visualized. Right ventricle size is normal. Normal systolic function. Mitral Valve: Moderate (2+) regurgitation. Tricuspid Valve: Severely elevated RVSP. RVSP is 66 mmHg. Left Atrium: Left atrium is mildly dilated. Pericardium: Left pleural effusion. Technically difficult study. Signed by: Thomas Hinton MD on 04/06/2025 12:42 PM Review of tests/labs done/ordered outside my specialty: Latest Reference Range & Units 04/17/25 04:40 SODIUM 136 - 145 mmol/L 138 POTASSIUM 3.5 - 5.1 mmol/L 3.6 CHLORIDE 98 - 107 mmol/L 88 (L) Carbon Dioxide (CO2) 23 - 31 mmol/L 40 (H) ANION GAP 3 - 13 mmol/L 10 Urea Nitrogen (BUN) 9 - 23 mg/dL 46 (H) Creatinine 0.72 - 1.25 mg/dL 1.67 (H) eGFR >60.0 mL/min/1.73m*2 38.9 (L) GLUCOSE 82 - 115 mg/dL 94 CALCIUM 8.8 - 10.0 mg/dL 8.4 (L) MAGNESIUM 1.6 - 2.6 mg/dL 1.8 ALKALINE PHOSPHATASE 40 - 150 U/L 49 ALBUMIN 3.4 - 4.8 g/dL 2.1 (L) TOTAL PROTEIN 6.4 - 8.3 g/dL 5.8 (L) AST <34 U/L 22 ALT <40 U/L <6 BILIRUBIN TOTAL <1.2 mg/dL 0.5 Auto WBC 3.6 - 10.7 10*3/uL 12.0 (H) RBC 4.40 - 5.90 10*6/uL 3.32 (L) HEMOGLOBIN 13.0 - 18.0 g/dL 7.9 (L) HEMATOCRIT 40.0 - 52.0 % 27.9 (L) MCV 77.0 - 99.0 fL 84.0 MCH 26.0 - 34.0 pg 23.8 (L) MCHC 30.5 - 36.0 % 28.3 (L) RDW 11.5 - 15.0 % 25.7 (H) Platelets 140 - 440 10*3/uL 419 Mean Platelet Volume (MPV) 9.0 - 12.7 fL 9.0 Segs Absolute 1.8 - 7.5 10*3/uL 9.2 (H) Lymphocytes Absolute 1.0 - 4.3 10*3/uL 1.3 Monocytes Absolute 0.0 - 0.9 10*3/uL 0.8 Eosinophils Absolute 0.0 - 0.5 10*3/uL 0.2 Basophils Absolute 0.0 - 0.2 10*3/uL 0.4 (H) Neutrophils Manual 77 Lymphocytes Manual 11 Monocytes Manual 7 Basophils Manual 3 RBC Morphology abnormal Polychromasia (none) Slight ! Stomatocytes (none) Moderate ! Target Cells (none) Slight ! Anisocytosis (none) Slight ! Hypochromia (none) Moderate ! Poikilocytes (none) Moderate ! Eosinophils Manual 0 - 1 2 (H) Neutrophils % 38 - 82 % 77 Lymphocytes % 15 - 45 % 11 (L) Monocytes % 5 - 13 % 7 Eosinophils % 0 - 6 % 2 Basophils % 0 - 2 % 3 (H) (L): Data is abnormally low (H): Data is abnormally high !: Data is abnormal Independent interpretation of tests: I, LOURDES Benson CNP, furnish ongoing care related to Mary Charles single, serious and complex condition(s) HF. I assume responsibility for the patient's ongoing medical care of this condition. LOURDES Benson CNP [1] No Known Allergies [2] Current Outpatient Medications: atorvastatin (Lipitor) 20 MG tablet, Take 1 tablet (20 mg) by mouth Nightly., Disp: 30 tablet, Rfl: 1 hydrALAZINE (Apresoline) 10 MG tablet, Take 1 tablet (10 mg) by mouth 3 times daily., Disp: 90 tablet, Rfl: 1 metoprolol succinate XL (Toprol-XL) 25 MG 24 hr tablet, Take 1 tablet (25 mg) by mouth daily. Do not crush or chew., Disp: 30 tablet, Rfl: 11 senna-docusate sodium (Senokot-S) 8.6-50 MG tablet, Take 2 tablets by mouth 2 times daily., Disp: 120 tablet, Rfl: 11 spironolactone (Aldactone) 25 MG tablet, Take 1 tablet (25 mg) by mouth daily., Disp: 30 tablet, Rfl: 11 Torsemide 40 MG tablet, Take 40 mg by mouth daily., Disp: 40 tablet, Rfl: 1 [3] History reviewed. No pertinent past medical history. [4] History reviewed. No pertinent surgical history. [5] No family history on file. documented in this encounter [facility] 05-03-2025 Evaluation + Plan note Associated Problem(s): Abnormal CAT scan CT abdomen with mural thickening involving the cecum and terminal ileum concern for neoplasm versus inflammation. Seen by GI with plan for EGD and colonoscopy once stable. -GI follow-up [facility] 05-03-2025 Miscellaneous Notes Associated Problem(s): Abnormal CAT scan CT abdomen with mural thickening involving the cecum and terminal ileum concern for neoplasm versus inflammation. Seen by GI with plan for EGD and colonoscopy once stable. -GI follow-up Associated Problem(s): PAC (premature atrial contraction) Noted to have irregular heart rhythm during hospitalization and multiple EKGs show sinus rhythm with frequent PACs. -Continue Toprol 25 mg p.o. daily Associated Problem(s): 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 chronic kidney disease (HCC) Anemia likely due to a combination of CKD and GI source. Per GI, EGD and colonoscopy was recommended as outpatient once he was stable. Hemoglobin on admission 5.6 and he received multiple units of RBCs. Also received IV iron. Negative FOBT 04/15/2025. Hgb 7.9 on discharge. Hgb 8.2 per labs 04/26/[address] [facility]. -No aspirin due to anemia - continue to monitor Associated Problem(s): Acute kidney injury superimposed on chronic kidney disease (HCC) (HCC) Creatinine 1.46 on admission. Peak creatinine 1.78. Most recent creatinine 1.8 per labs 04/26/2025 - Continue to monitor - may have to accept a higher creatinine to keep him out of HF Associated Problem(s): Pleural effusion Bedside thoracentesis 04/09/2025 with 1 L removed from the left and 600 mL removed from the right. Repeat left thoracentesis 04/14/2025 with 600 mL removed. - continue to monitor, appears euvolemic today Associated Problem(s): 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 Suspected CAD causing HFrEF. NO angina. 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 No current HF symptoms and euvolemic on exam. - continue Toprol 25 mg po daily - continue hydralazine 10 mg po TID - continue spironolactone 25 mg p.o. daily - continue torsemide 40 mg po daily - unable to titrate further GDMT 2/2 low BP -not a good candidate for invasive work up at this point due to frailty, anemia - plan repeat TTE in 3 months for re-evaluation of EF documented in this encounter [facility] 05-03-2025 Evaluation + Plan note Associated Problem(s): PAC (premature atrial contraction) Noted to have irregular heart rhythm during hospitalization and multiple EKGs show sinus rhythm with frequent PACs. -Continue Toprol 25 mg p.o. daily [facility] 05-03-2025 Evaluation + Plan note Associated Problem(s): 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 chronic kidney disease (HCC) Anemia likely due to a combination of CKD and GI source. Per GI, EGD and colonoscopy was recommended as outpatient once he was stable. Hemoglobin on admission 5.6 and he received multiple units of RBCs. Also received IV iron. Negative FOBT 04/15/2025. Hgb 7.9 on discharge. Hgb 8.2 per labs 04/26/2025 from SNF. -No aspirin due to anemia - continue to monitor [facility] 05-03-2025 Evaluation + Plan note Associated Problem(s): Acute kidney injury superimposed on chronic kidney disease (HCC) (HCC) Creatinine 1.46 on admission. Peak creatinine 1.78. Most recent creatinine 1.8 per labs 04/26/2025 - Continue to monitor - may have to accept a higher creatinine to keep him out of HF [facility] 05-03-2025 Evaluation + Plan note Associated Problem(s): Pleural effusion Bedside thoracentesis 04/09/2025 with 1 L removed from the left and 600 mL removed from the right. Repeat left thoracentesis 04/14/2025 with 600 mL removed. - continue to monitor, appears euvolemic today [facility] 05-03-2025 Evaluation + Plan note Associated Problem(s): 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 Suspected CAD causing HFrEF. NO angina. - no ASA 2/2 anemia - continue Toprol 25 mg po daily - continue atorvastatin 20 mg po daily - not a candidate or invasive workup due to anemia, advanced age and frailty [facility] 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 No current HF symptoms and euvolemic on exam. - continue Toprol 25 mg po daily - continue hydralazine 10 mg po TID - continue spironolactone 25 mg p.o. daily - continue torsemide 40 mg po daily - unable to titrate further GDMT 2/2 low BP -not a good candidate for invasive work up at this point due to frailty, anemia - plan repeat TTE in 3 months for re-evaluation of EF [facility] 04-19-2025 History of Presen t illness Narrative Pt was followed by the Palliative Care Team during hospitalization at [facility]. Provider is recommending continued Palliative follow up in the community. Referral made referral to [facility] team. documented in this encounter [facility] 04-17-2025 Nurse Note Report given to Flor MYERS at [facility]. All belongings sent with patient, including eyewear. HL removed, site WNL. RN contacted JOSE LUIS Farmer concerning attempt to wean patient to room air. Patient was unable to maintain above 90% saturation. He read 78% on right hand, 84% left hand. RN placed patient on 2L of oxygen and patient reached 91% within a short time. RN held hydralazine this afternoon due to patient blood pressure being below 110 systolic. IR US Thoracentesis 650 ml of hines yellow fluid removed. Vaseline guaze dressing applied. Patient tolerated procedure well. Patient returned to IN patient room. Patient arrived to Ultrasound department for thoracentesis from In patient room 268 B History, medications and allergies reviewed. Marianna Francois PA-C in to discuss procedure and informed consent obtained. Patient assisted to sitting on the edge of the bed. Left upper back scanned, marked and prepped in sterile fashion. R thoracentesis complete pt tolerated well with minimal discomfort L thoracentesis complete per Dr Lewis. Pt tolerated well with minimal discomfort Patient was alert, orient*4 all time since he came here this evening but he wakes up and ripped all the tele leads, gown and trying to get up from bed very aggressively. 2 RN , 2 associate of science in nursing were at bedside trying to calm him down but he was super agitated. Jethro from protective service came to help us out too. He was not calming down so gave ativan iv 0.5mg. vital signs are within normal limits during period and filed. Patient is refusing tele at the moment . Oxygen is on and SpO2 is 95% in 4 litres. Transfused two pint of blood. No any allergic reaction seen.vital signs are within normal limits. documented in this encounter [facility] 04-17-2025 Miscellaneous Notes Patient Choice Patient Name: MARY CHARLES Date of : 1935 Share Number: 0 Method of Sharing: electronic Date of Sharin2025-04-08 13:13:[id number] Responding Recipient: [email or web address] [email or web address] Providers Sent Referral Rank: 2 Name: [employer] Phone: [phone] Address: [address] [place] [address] Rank: 3 Name: [employer] [facility] [employer] Phone: [phone] Address: [id number] [place] [address] Rank: 1 [facility]: [facility] Member Phone: [phone] Address: [address] [place] [address] All Providers Sent Referral Name: [employer] Phone: [phone] Address: [address] [place] [address] Name: [email or web address] Phone: [phone] Address: [address] [place] [address] Name: [facility] Member Phone: [phone] Address: [address] [place] [address] Care Management Progress Note Short Medical why still here: Pending placement. Planned Discharge Disposition: [facility]it[facility]iary Facility ([facility]) Barriers/Today we still Wait: Clinical stability Length of Stay (Days): 12 GMLOS: 3.9 CM tasked to follow patient through the weekend to assist with discharge needs. Chart reviewed. Expected Discharge, Rapid Rounding, and Discharge Milestones / Delays updated as appropriate. Checked CarePort - no auth required, able to accept this weekend. Messaged attending to notify. 7000 complete and in [facility] - facility aware. Active DC orders in place. Requested cot transport for 1230 via [employer]. Organizer accepted for 1230. Notified bedside RN of transport time and number to call report. Notified facility of transport time and sent DC Summary and [facility]. Spoke with daughter Anahy Charles at [phone] regarding transportation plan. Confirmed pickup time is 1230. Discussed patient may have a co-pay for ambulance depending on their individual insurance coverage. Advised daughter Anahy to call number on back of insurance card with questions or concerns. Tasked weekend TTC to follow for possible dc over the weekend. manager performance to follow and assist as needed. 7000 Complete in [employer] for SNF [facility] per TCC request Care Management Progress Note Short Medical why still here: -Pt to be transitioned to PO diuretic by Cardiology. -On 0.5L O2 -Pt needs Bipap, but has been having a difficult time with the mask fitting. Pt states he is still determined to try the BiPap. OK to dc per Pulmonology. -Pt wants to remain a full code at this time. Planned Discharge Disposition: [facility] -Notified facility of pt going to there facility under skilled therapy at this time. -Pt wanted a facility where palliative/hospice can follow if he changes his mind. Informed facility of pt's wishes. Pt can transition to hospice services at that facility if he chooses. -Tasked TOOL TURRET LATHE SET UP OPERATOR to complete and upload into [employer] 7000. Barriers/Today we still Wait: Clinical stability, Symptomatic control, Post-discharge arrangement completion (facility made aware of skilled services and needing the BiPap) Length of Stay (Days): 11 GMLOS: 3.9 -Spoke with daughter Anahy over the phone -Discussed discharge planning -There is no HCPOA at this time. If pt is unable to make decisions, Anahy and her brother will step in to assist with decisions. -IF after the palliative meeting tomorrow, hospice is pursued, pt will still need placement at a facility. -manager performance to follow and assist as needed. Care Management Progress Note Short Medical why still here: -Cardiology and Pulmonology following, Palliative re-consulted. -Pt still have significant left pleural effusion. Will need another thoracentesis. -Hg today 7.6 -Receiving IV Lasix 80 BID -On 2L O2 -Per Palliative, daughter is now open to the idea of discussing hospice with the pt. Palliative will have meeting with daughter and son on Saturday morning, and then with the pt and rest of family later on Saturday. Planned Discharge Disposition: Penitentiary Facility vs hospice Barriers/Today we still Wait: Receiving IV medication, clinical stability, Post-discharge arrangement completion (SNF vs hospice) manager performance to follow and assist as needed. Length of Stay (Days): 9 GMLOS: 3.9 Family Communication Number Called: [phone] Name of Designated Family Hatchery Helper: Anahy Charles Relationship to patient: Daughter Outcome: I spoke with the individual listed above Family Hatchery Helper Updated on the Following: --provided medical update. --Planned to meet with Anahy and her brother on Saturday AM 0900. --Discussed with her about talking to Mary prior to meeting Saturday. She is open to the idea of discussing hospice with him and attempting to get him to understand the gravity of the situation. She is in agreement with this plan. --will meet with Mary tomorrow and rest of family on Saturday. Signed, Bela Agustin APRN, CNP, [facility] Palliative Care/Hospice [facility] [phone] Care Management Progress Note Short Medical why still here: did send bipap settings to [facility] and requested for them to obtain bipap unit for patient to utilize at their facility. Currently requiring oxygen at 1 liter. Anticipate probable dc tomorrow. Will need 7000 and transport arranged. Planned Discharge Disposition: Penitentiary Facility Barriers/Today we still Wait: Administering IV medications, Clinical stability, Facility pre-cert Length of Stay (Days): 8 GMLOS: 3.9 . Referral placed to SNF- [facility] via Careport per TCC request. Await review and response regarding ability to accept. TCC notified. Care Management Progress Note Short Medical why still here: reviewed chart. Dgt has selected SNF choices virtually - [facility] Tasked TOOL TURRET LATHE SET UP OPERATOR to create these referrals - will follow. Planned Discharge Disposition: Penitentiary Facility Barriers/Today we still Wait: Administering IV medications, Clinical stability, Facility pre-cert Length of Stay (Days): 7 GMLOS: 3.9 Called and spoke with deya Higginbotham of patient, and provided DC planning updates. [facility] willing to accept. Updates sent to facility. ICU Transfer Checklist Transfer Med Reconciliation (resume home meds if able, convert to PO if able) Complete Antibiotics (name, indication, duration, convert to PO if able) None Steroid (indication, duration, convert to PO if able) None Anticipated [place] Medications (ICU initiated) or Dose Changes and Indication No Permanently Discontinued Home Medications and Reason for medication contraindication No García Catheter (please remove if able. Note: place DC order) No Central Line (please remove if able. Note: place DC order) No Transfer Discussed with: [place] [facility] [place] additional questions for ICU team within 24 hours of ICU transfer, page [phone] for clarifications. Will assume care as patient is being transferred out of ICU. D/w Dr Lewis via secure chat Images from the original note were not included. [facility] Palliative Care Transitions of Care Note Mary Charles : 1935 ADMIT DATE: 04/05/2025 DISCHARGE DATE: TBD PRIMARY CARE PHYSICIAN: No primary care provider on file. CODE STATUS: Full Code DISCHARGE DIAGNOSES: Principal Problem: Acute congestive heart failure, unspecified heart failure type (HCC) HOSPITAL COURSE: Goals of care Mary Charles retains capacity for medical decision-making -legal surrogate decision maker is daughter, Anahy Charles ( ) -Remains full code at this time per conversation with daughter whom has spoken with her father about code status and continues to wish for full code measures and workup. AE CHFrEF -Cardiology following. -TTE revealing EF 22%, severe LV systolic dysfunction and moderate MR and severely elevated RVSP -Noted that he is not a candidate for other aggressive management 2/2 frailty. -Cardiology managing medications. -Appears that he really would be appropriate for hospice, however patient states he would like to continue workup and treatment as it stands now, daughter also in agreement that she would like to continue aggressive workup and treatment as well. Dyspnea Acute hypercapnic respiratory failure -ongoing. 2/2 above AE CHF/newly diagnosed CHF. -NC in place now, NIV required overnight. -Increased CO2 which was likely reason for agitation/somnolence previously. Appears mentation is improving now. -s/p thoracentesis this morning for 1L-->cultures sent. -Patient states he does not wear O2 at home. -Monitor O2 sats. -Home O2 evaluation?? -Obesity hypoventilation syndrome?? Hx LEONA?? -Monitor. Acute anemia Hematochezia -Low Hgb-->5.5 on arrival, received PRBC. -Endorses dark stools at times. -Monitor H/H -Monitor labs. -GI following, continuing workup pending stability from cardiac standpoint-->recommendations EGD/colonoscopy. -CT findings of mural thickening of cecum and TI concerning for malignancy vs. Inflammation. -Monitor. Debility -PT/OT on board. -Patient states that he stood at bedside today with therapy. -Lives alone, may need more help at home vs. Facility placement. -Monitor. Depression Life change -Noted that about a year ago. -Patient lives alone now. Appears that he is depressed based on changes recorded in H/P -Lack of interest in doing things, appetite changes, change in health status-->??not taking care of himself. -Consider medication for mood? -Park Landscape Architect support requested. -Monitor. Hx CKD III -CrCl 33.6 mL/min. -Creatinine 1.53 BUN 40 as of this AM -As above has not seen physician/provider in several years. -Monitor fluid status, renally dose medications. -Monitor I/O -Avoid nephrotoxic medications. -??risk for cardiorenal syndrome. Monitor. Palliative Care Encounter -Code Status: Full Code - will continue to follow for ongoing monitoring of progression of Dyspnea as well as for appropriateness for hospice care due to CHF and Respiratory Failure SIGNIFICANT DIAGNOSTIC STUDIES: Labs, imaging CODE STATUS DISCUSSIONS: Full code status SYMPTOM MANAGEMENT MEDICATIONS: N/a RECOMMENDED NEXT STEPS: Dc to SNF when ready. FOLLOW UP TESTING, PENDING RESULTS OR REFERRALS AT TRANSITIONAL CARE VISIT: No PENDING STUDIES: No DISPOSITION: SNF FACILITY/HOME CARE AGENCY NAME: TBD, referrals have been sent to [facility]. Follow up with palliative team on office to call patient. Reason for Outpatient/Home/ECF Palliative Care follow-up: Continue goals of care discussion Opiate Prescribing N/a SIGNED: LOURDES Ordaz CNP 04/12/2025, 11:34 AM Care Management Progress Note Short Medical why still here: transferred to ICU for respiratory failure. On NIV overnight. Changed to nasal cannula early this morning. Currently on 4L. Reciving IV lasix BID. NPO. S/p L thoracentesis today. Elevated BUN/ creatinine. Palliative care and cardiology following. Planned Discharge Disposition: [facility]itentiary Facility Barriers/Today we still Wait: Clinical stability, Induction Brazer recommendations (comment), Diagnostic workup, Administering IV medications, Procedure (comment) Length of Stay (Days): 4 GMLOS: 3.9 Attempted to insert garcía. Urojet injected. Unable to visualize meatus. Attempted x1 to insert garcía without success. I was called to assess patient for family concern of patient sleeping all day, received ativan last night. Upon my arrival, pt is awake, holding his head up. Female family members at bedside. Pt is able to state his name and date. VS and blood sugar checked by other staff nurses. Lung sounds diminished in all anterior and posterior lung lopez bilaterally. Pt is on O2- 4L NC. 2+ pitting edema noted to bilateral lower extremities. PCXR done. ABG drawn and sent by Resp Therapy. Eval by Dr Regan, [facility]. Care Management Progress Note Short Medical why still here: on iron IV monitor H&H, O2 supplementation via nasal cannula 93% on 4 L, intake and output, Lasix 40 mg IV twice daily extra 20 mg IV as needed, low-salt diet, GI workup with EGD and colonoscopy once respiratory status stable Cardio, GI consults Planned Discharge Disposition: (TBT: therapy pending) PT rec is SNF Need order for OT Barriers/Today we still Wait: Administering IV medications, Clinical stability, Symptomatic control Length of Stay (Days): 3 GMLOS: No GMLOS Documented I tried to speak to the patient in the room, was sleeping I called to dtr/Anahy She is agreeable to SNF stay. I emailed her a list of choices near their home. She will call or return with email selections No auth will be needed for Traditional Medicare payer Care Management Progress Note Short Medical why still here: -Pt admitted for heart failure. -Was also anemic on admission with Hg 5.6. Received two units of blood. -Now had O2 at 4L, non at baseline -LE swelling, on IV Lasix 40 BID Planned Discharge Disposition: (TBD) Pt lives alone. PT with pending eval Barriers/Today we still Wait: Diagnostic workup, Symptomatic control, Clinical stability, Administering IV medications No PCP, has not seen a doctor in 30 years. No OT ordered at this time. Will need if SNF is recommended by PT. manager performance to follow and assist as needed. Length of Stay (Days): 1 GMLOS: No GMLOS Documented documented in this encounter [facility] 04-17-2025 Note [facility] Hospital course Narrative Discharge Summary Mary Charles : 1935 ADMIT DATE: 04/05/2025 DISCHARGE DATE: 04/17/2025 PRIMARY CARE PHYSICIAN: No primary care provider on file. VISIT STATUS: Admission CODE STATUS: Full Code DISCHARGE DIAGNOSES: Principal Problem: Acute congestive heart failure, unspecified heart failure type (HCC) Acute on chronic CHF exacerbation with severely reduced left ventricular ejection fraction- ECHO - EF 22%. GDMT per cardiology, Suspect ischemic cardiomyopathy . No ASA ramona due to anemia. Not a good candidate for invasive evaluation. Acute on chronic hypoxic and hypercapnic respiratory failure- supplemental oxygen, BIPAP during night - follow up with pulmonology as an outpatient. Bilateral pleural effusion status post thoracentesis both sides, twice on left- follow up CXR and follow up with pulmonology as an outpatient. CKD stage IIIb- creatinine stable and improving Anemia of chronic disease status post PRBC transfusion -GI followed, workup deferred due to respiratory status. Follow up with GI as an outpatient for EGD, colonoscopy Mural thickening of cecum , terminal ileum- colonoscopy as an outpatient. Hypomagnesemia supplemented. HOSPITAL COURSE: Details as above SOB with significant anemia, CHF and acute on chronic respiratory failure with b/l pleural effusions. Cardiology , pulmonology, GI and palliative care consulted. Hospital course complicated by ICU stay for NIV for acute resp failure. ECHO with EF 22%. Cardiology consulted and GDMT initiated. B/l thoracentesis done. Started on BIPAP which he will continue on discharge. For anemia, GI workup deferred at present due to other co morbidities. Would follow up with GI as an outpatient. Palliative care consulted.Full code at present. Consideration for hospice in facility if clinical condition deteriorates. Discharged in stable condition with follow ups. SIGNIFICANT DIAGNOSTIC STUDIES: ECHO: Left Ventricle: Left ventricle is mildly dilated. Normal wall thickness. Severely reduced left ventricular systolic function. EF by 2D Simpsons Biplane is 22%. Severe global hypokinesis present. Right Ventricle: Not well visualized. Right ventricle size is normal. Normal systolic function. Mitral Valve: Moderate (2+) regurgitation. Tricuspid Valve: Severely elevated RVSP. RVSP is 66 mmHg. Left Atrium: Left atrium is mildly dilated. Pericardium: Left pleural effusion. Technically difficult study. CT chest : Findings: The aorta and main pulmonary artery are grossly of normal caliber. The right pulmonary artery measures approximately 3.7 cm in diameter. The ascending thoracic aorta measures 3.7 cm in diameter. Mild calcification of the aortic arch. Extensive diffuse coronary artery calcification present with question coronary stents. Heart size is enlarged. There is no significant adenopathy demonstrated. Small subcentimeter mediastinal lymph nodes. Moderate to large bilateral pleural effusions with bilateral infiltrates and/or compressive atelectasis of the lungs. Presumed component of pulmonary edema with some coarsening of the interstitium. Dense calcification along the origin of the celiac artery, incompletely covered. Moderate to large osteophytes along the right anterior thoracic spine at multiple levels. IMPRESSION: Impression: Findings thought to most likely represent CHF. A superimposed infectious etiology is not excluded. The right pulmonary artery appears enlarged. CT abdomen: CT Abdomen and Pelvis Without Intravenous Contrast CLINICAL INDICATION: Abdominal pain, acute, nonlocalized; anemia TECHNIQUE: Axial computed tomography images of the abdomen and pelvis without intravenous contrast. This CT exam was performed using one or more of the following dose reduction techniques: automated exposure control, adjustment of the mA and/or kV according to patient size, and/or use of iterative reconstruction technique. COMPARISON: No relevant prior studies available. FINDINGS: LUNG BASES: See below. PLEURAL SPACE: Bilateral pleural effusions and bibasilar atelectasis; correlate with the contemporaneously obtained chest CT. ABDOMEN: LIVER: Unremarkable. GALLBLADDER AND BILE DUCTS: Unremarkable. No calcified stones. No ductal dilation. PANCREAS: Unremarkable. No ductal dilation. SPLEEN: Unremarkable. No splenomegaly. ADRENALS: Unremarkable. No mass. KIDNEYS AND URETERS: Unremarkable. No obstructing stones. No hydronephrosis. STOMACH AND BOWEL: There is mural thickening involving the cecum and terminal ileum. Diverticuli are noted throughout the transverse and sigmoid colon. No stenotic lesion, mucosal thickening or adjacent fat stranding is noted to suggest diverticulitis. No obstruction. PELVIS: APPENDIX: The appendix is not identified. BLADDER: Unremarkable. No stones. REPRODUCTIVE: Unremarkable as visualized. ABDOMEN and PELVIS: INTRAPERITONEAL SPACE: Unremarkable. No free air. No significant fluid collection. BONES/JOINTS: Mild degenerative changes are present in the visualized spine. No acute fracture. VASCULATURE: Atherosclerotic disease. No abdominal aortic aneurysm. LYMPH NODES: Unremarkable. No enlarged lymph nodes. IMPRESSION: 1. Mural thickening involving the cecum and terminal ileum. These findings could be due to neoplasm or enterocolitis. Recommend follow-up endoscopy. 2. Colonic diverticulosis. Echo Findings Left Ventricle Left ventricle is mildly dilated. Normal wall thickness. Severely reduced left ventricular systolic function. EF by 2D Simpsons Biplane is 22%. Severe global hypokinesis present. Indeterminate diastolic function. Right Ventricle Not well visualized. Right ventricle size is normal. Normal systolic function. Left Atrium Left atrium is mildly dilated. Pulmonary veins were not well visualized. Interatrial Septum No interatrial shunt visualized on color Doppler. Right Atrium Right atrium size is normal. Aortic Valve Not well visualized. No cusp thickening. Mildly calcified cusps. No regurgitation. No stenosis. Mitral Valve Valve structure is normal. Moderate (2+) regurgitation. No stenosis noted. Tricuspid Valve Valve structure is normal. Trace regurgitation. Severely elevated RVSP. RVSP is 66 mmHg. Pulmonic Valve The pulmonic valve visualization is suboptimal but appears to be functioning normally. Mild (1+) regurgitation. Aorta Normal sized sinuses of Valsalva and ascending aorta. IVC/Hepatic Veins IVC was not well visualized. IVC is dilated. IVC diameter is dilated and decreases less than 50% during inspiration; therefore the estimated right atrial pressure is elevated (~15 mmHg). Pericardium No pericardial effusion. Left pleural effusion. CONSULTANTS: Cardiology, pulmonology, GI, palliative care RECOMMENDED NEXT STEPS: Follow up CBC, CMP and CXR BIPAP during night Follow up with GI, pulmonology and cardiology as an outpatient. Exam: BP 104/50 Pulse 62 Temp 36.2 C (97.2 F) (Temporal) Resp 18 Ht 5' 8 (1.727 m) Wt 204 lb 12.8 oz (92.9 kg) SpO2 96% BMI 31.14 kg/m General : alert, awake Chest : b/l equal air entry, decreased on lung bases CVS: s1, s2, mo PA: soft, NT Ext: no edema Neuro: alert, awake , no focal weakness. DISCHARGE MEDICATIONS: Medication List START taking these medications atorvastatin 20 MG tablet Commonly known as: Lipitor Take 1 tablet (20 mg) by mouth Nightly. hydrALAZINE 10 MG tablet Commonly known as: Apresoline Take 1 tablet (10 mg) by mouth 3 times daily. metoprolol succinate XL 25 MG 24 hr tablet Commonly known as: Toprol-XL Take 1 tablet (25 mg) by mouth daily. Do not crush or chew. Start taking on: April 18, 2025 senna-docusate sodium 8.6-50 MG tablet Commonly known as: Senokot-S Take 2 tablets by mouth 2 times daily. spironolactone 25 MG tablet Commonly known as: Aldactone Take 1 tablet (25 mg) by mouth daily. Start taking on: April 18, 2025 Torsemide 40 MG tablet Take 40 mg by mouth daily. Start taking on: April 18, 2025 Where to Get Your Medications These medications were sent to [facility] [address] [place] [address] Hours: Saturday to Saturday 10 am to 6 pm atorvastatin 20 MG tablet hydrALAZINE 10 MG tablet metoprolol succinate XL 25 MG 24 hr tablet senna-docusate sodium 8.6-50 MG tablet spironolactone 25 MG tablet Torsemide 40 MG tablet DIET: Adult diet Regular; No Added Salt (3-4 gm) ACTIVITY: No restriction. COMPLEXITY OF FOLLOW UP: [x] Moderate Complexity: follow up within 7-14 calendar days (32053) [] Severe Complexity: follow up within 7 calendar days (92365) FOLLOW UP TESTING, PENDING RESULTS OR REFERRALS AT TRANSITIONAL CARE VISIT: [x] Yes [] No PENDING STUDIES: DISPOSITION: Skilled Facility FACILITY/HOME CARE AGENCY NAME: Follow up with Nelson Garcia MD [address] [facility] [address] Go on 05/18/2025 Pulmonary hospital follow-up at 9:15 AM Marian Casarez APRN - INFORMATICS EDUCATOR [address] [facility] [address] [facility], [facility] [address] Follow up on 04/22/2025 Cardiology follow-up at 10:00 AM. [facility] [place] [address] [facility] [id number] Follow up in 1 month(s) on INSTRUCTIONS TO MA/SW: Please call patient on day after discharge (must document patient contacted within 2 business days of discharge). FOLLOW UP QUESTIONS FOR MA/SW: 1. Did you get medications filled and taking them as instructed from discharge? 2. Are you following your discharge instructions from your hospital stay? 3. Please confirm patient is scheduled for a follow up appointment within the above time frame. DISCHARGE TIME: 40 min SIGNED: Albaro Hernández MD 04/17/2025, 10:12 AM documented in this encounter [facility] 04-17-2025 History of Presen t illness Narrative [facility] [place] [facility] Cardiology /Electrophysiology Progress Note HPI / Interval History: Mary Charles is a 89 y.o. year old male patient who has not received any medical care for a number of years presented to the hospital with progressive shortness of breath, hypoxia and edema. Chest x-ray with pulmonary edema and bilateral pleural effusions. High-sensitivity troponins 29-28, proBNP 8438, creatinine 1.44, hemoglobin 5.6 status post 2 units PRBC. Cardiology was consulted for new heart failure. He was seen in consult by Dr. Scherer and due to age, anemia, and frailty was recommended a conservative palliative approach. Additionally he has GI following for mural thickening involving the cecum and terminal ileum with concern for neoplasm or inflammation. GI plans for EGD colonoscopy when stabilized from a cardiac standpoint. 04/08/2025 he transferred to the ICU with acute hypercarbia requiring NIV and bilateral thoracentesis. He was changed to oral diuretic on 04/11/2025, however when he was seen 04/12/2025 he required additional IV Lasix due to chest x-ray with some pulmonary congestion. In review of notes from we have tried to transition him to oral diuretic he has not tolerated, and we end up resuming the IV Lasix. Repeat chest x-ray was done, and on 04 14 he had a repeat left thoracentesis status post 600 mL off. Today again he is symptom-free from a heart failure standpoint. We transition to oral diuretics 04/16/2025. He was put on oxygen overnight because he was unable to wear his BiPAP. Plan is to go to a facility that has both palliative and hospice options. Assessment/Plan HF NYHA Class [] I [x] II [x] III [] IV []Unable to assess [] N/A Acute decompensated heart failure with reduced ejection fraction. ACC stage C. Suspect ischemic cardiomyopathy. - Transthoracic echocardiogram 04/06/2025 with LVEF 22%, severe global hypokinesis, 2+ TR, RVSP 66 mmHg, dilated IVC with a right atrial pressure 15 mmHg and a left pleural effusion. - Continues on torsemide 40 mg daily - Continues on spironolactone 25 mg daily -BMP stable - Daily weights, daily BMP, heart failure care reviewed - Continues on Toprol XL 25 mg daily - Continues on hydralazine 25 mg 3 times daily; hold for SBP less than 110 - Titration of GDMT for heart failure is limited due to hypotension - No aspirin due to anemia; continues on atorvastatin 20 mg daily; palliative discussions for goals of care due to frailty, and anemia he is not felt to be a good candidate for invasive evaluation Bilateral pleural effusions. - 04/08/2025 status post bedside left thoracentesis with 1 L of fluid removed and right thoracentesis with 600 mL of fluid removed - 04/14/2025 status post left thoracentesis with 650 mL of fluid removed -04/14/2025 x-ray shows persistent left pleural effusion only slightly improved - 04/15/2025 discussed with pulmonology management of the persistent left pleural effusion, as he has had 2 thoracentesis now and x-ray still shows persistent pleural effusion; reviewed with Yesi De La Garza CNP with pulmonology who states there are no plans for further thoracentesis at this time given improved oxygen requirements and desire to reduce the risk of infection and pneumothorax. CKD. - Appears stage IIIb, but do not have labs to be on this admission for comparison. Creatinine has been between 1.4 and 1.8, today 1.67 - Daily BMP while diuresing Anemia. - Hemoglobin 5.6 status post multiple units of PRBCs - CBC 04/12/2025 shows hemoglobin 7.8, and has remained above 7 - Per GI EGD and colonoscopy once able - Negative FOBT 04/15/2025 - He received IV iron 04/06, 04/07, 04/08 Sinus arrhythmia versus atrial fibrillation. - On admission 04/05/2025 his EKG showed sinus arrhythmia, but per telemetry atrial fibrillation was suspected. I ordered an EKG 04/14/2025, which again showed sinus arrhythmia with multiple PACs. No further workup indicated at this time. Okay for discharge from a cardiac standpoint. Cardiology recommendations as above. We will see him for hospital follow-up 04/22/2025 at 10 AM at the [facility] office with myself, Marian Casarez CNP. I have reviewed with primary team. Please reach out for additional questions or concerns. Medications: Scheduled Meds[1] Infusion Medications: Continuous Meds[2] Physical Examination: Vitals: 04/16/259 04/17/25 0147 04/17/25 0500 04/17/25 0840 BP: (!) 93/48 (!) 86/52 104/50 BP Location: Right arm Patient Position: Sitting Pulse: 64 61 62 Resp: 18 Temp: 36.2 C (97.2 F) TempSrc: Temporal SpO2: 96% Weight: 204 lb 12.8 oz (92.9 kg) Height: Intake/Output Summary (Last 24 hours) at 04/17/2025 0934 Last data filed at 04/16/2025 1700 Gross per 24 hour Intake 350 ml Output -- Net 350 ml Patient Vitals for the past 168 hrs: Weight Weight Method 04/17/25 0500 204 lb 12.8 oz (92.9 kg) Bed scale 04/15/25 0600 200 lb 13.4 oz (91.1 kg) -- 04/13/25 0600 206 lb 9.6 oz (93.7 kg) Bed scale 04/12/25 0903 201 lb 6.4 oz (91.4 kg) Standing scale Physical Exam Constitutional: NAD Psychiatric: Alert. Medical insight poor Neck: No JVD Respiratory: Lungs are diminished Heart: Irregular, extra beats; Nl S1 and S2, no murmur, no rub, gallop Abdomen: NABS; soft, non-tender, non-distended Extremities: Evidence of tenting suggesting chronic lower extremity edema, no edema today Skin: Warm to touch and well perfused Laboratory Tests: TROPONIN I, CONVENTIONAL SENSITIVITY No results found for: CKTOTAL, CKMB, CKMBINDEX, TROPONINI TROPONIN I, HIGH SENSITIVITY Troponin HS Serial Baseline Date Value Ref Range Status 04/05/2025 29 <=35 ng/L Final Comment: In individuals presenting with symptoms > 2h, a baseline troponin <= 5 ng/L suggests acute cardiac injury is unlikely and further serial testing is generally not indicated. 04/05/2025 30 <=35 ng/L Final Comment: In individuals presenting with symptoms > 2h, a baseline troponin <= 5 ng/L suggests acute cardiac injury is unlikely and further serial testing is generally not indicated. 2h Troponin HS (Serial 2nd Troponin) Date Value Ref Range Status 04/05/2025 28 <=35 ng/L Final Comment: 2h troponin (2nd troponin) samples collected between 1h 40 min and 2h and 20 min of the baseline collection time can be utilized to interpret delta troponins as per [employer] algorithms. Samples collected outside this timeframe need to be interpreted clinically. Rising or falling troponin delta below 2 ng/L as compared to baseline value suggests that acute cardiac injury is unlikely. No results found for: TROPDELTBASE No results found for: TROPHS3 No results found for: TROPDELTSEC Recent Labs 04/15/25 02104/16/25 0339 04/17/25 0440 NA 139 140 138 K 3.5 3.6 3.6 CL 90* 87* 88* CO2 40* 43* 40* BUN 43* 46* 46* CREATININE 1.58* 1.81* 1.67* Recent Labs 04/15/25 02104/16/25 0339 04/17/25 0440 WBC 12.4* 13.1* 12.0* HGB 7.8* 8.0* 7.9* HCT 28.0* 28.4* 27.9* MCV 84.1 84.3 84.0 PLT 332 405 419 No results for input(s): BNP in the last 72 hours. No results for input(s): TRIG, HDL, LDLCALC, CHOL in the last 72 hours. No results found for: LDLCHOLESTER Lab Results Component Value Date TSH 10.19 (H) 04/05/2025 EF BP Date Value Ref Range Status 04/06/2025 22 (A) 55 - 100 % Final 04/05/25 TRANSTHORACIC ECHOCARDIOGRAM (TTE) COMPLETE (CONTRAST/BUBBLE/3D PRN) 04/06/2025 12:42 PM (Final) Interpretation Summary Left Ventricle: Left ventricle is mildly dilated. Normal wall thickness. Severely reduced left ventricular systolic function. EF by 2D Simpsons Biplane is 22%. Severe global hypokinesis present. Right Ventricle: Not well visualized. Right ventricle size is normal. Normal systolic function. Mitral Valve: Moderate (2+) regurgitation. Tricuspid Valve: Severely elevated RVSP. RVSP is 66 mmHg. Left Atrium: Left atrium is mildly dilated. Pericardium: Left pleural effusion. Technically difficult study. Signed by: Thomas Hinton MD on 04/06/2025 12:42 PM Other reports reviewed: Cardiac Tests: ECG: Tracing reviewed. Telemetry findings reviewed: No telemetry EF BP Date Value Ref Range Status 04/06/2025 22 (A) 55 - 100 % Final LOURDES Husain CNP Date Of Service 04/17/2025 [1] atorvastatin, 20 mg, Oral, Nightly [Held by provider] hydrALAZINE, 10 mg, Oral, TID metoprolol succinate XL, 25 mg, Oral, Daily pantoprazole, 40 mg, Oral, qAM AC senna-docusate sodium, 2 tablet, Oral, BID spironolactone, 25 mg, Oral, Daily torsemide, 40 mg, Oral, Daily [2] [facility] Res[facility] Care Department Progress Note Comment or reasoning for refusal: Patient was seen in attempts to fulfill CPAP/BiPAP/AutoPAP order. Patient refused PAP therapy/study at this time. Patient was educated on medical need and reasoning for physician order to ensure patient was making an informed medical decision. All of the patient's questions were answered at this time and patient was informed that if the patient changes their mind regarding wearing PAP to hit their call light or inform their nurse to contact Respiratory. A second, consecutive night of refusing PAP therapy/study results in order completion in the EMR. If future CPAP/BiPAP/AutoPAP therapy or study is indicated please place another order in the EMR and the assigned Respiratory Therapist will reattempt to fulfill orders. Reason for refusal: Pt was unable to tolerate cpap with nasal pillows. 1st attempt patient began to sneeze and wanted to blow his nose. Cpap was replaced but pt. Says he cannot tolerate the pressure. Settings decreased to see if patient would tolerate but still unable to at the time. Returned at a later time to attempt placing patient back on cpap. Pt. Wanted to talk about why he could not possibly wear it tonight. Pt. Refused at this time cpap at bedside. Thank you for involving Respiratory in the care of this patient, Images from the original note were not included. Palliative Care Progress Note Chief Complaint: Mary Charles is a 89 y.o. male with chief complaint of shortness of breath. Palliative Care provider will follow-up on . Assessment/Plan Goals of care Mary Charles retains capacity for medical decision-making -legal surrogate decision maker is daughter, Anahy Charles ( ) -see subjective for details of conversation AE CHFrEF -Cardiology following. -TTE revealing EF 22%, severe LV systolic dysfunction and moderate MR and severely elevated RVSP -Noted that he is not a candidate for other aggressive management 2/2 frailty. -Cardiology managing medications. -Appears that he really would be appropriate for hospice, however patient states he would like to continue workup and treatment as it stands now. Dyspnea Acute hypercapnic respiratory failure -ongoing. 2/2 above AE CHF/newly diagnosed CHF. -NC in place, saturations remain appropriate. -s/p thoracentesis on 8- and 8, likely 2/2 CHF. -PAP ordered patient continues to refuse. -Remains full code at this time. -Obesity hypoventilation syndrome?? Hx LEONA?? -Monitor. Acute anemia Hematochezia -Resolved, continue to monitor labs. -CT findings of mural thickening of cecum and TI concerning for malignancy vs. Inflammation. Debility -PT/OT on board. -Likely that dc plan will be to SNF on dc. -Palliative team to follow at SNF for continued goals of care. Depression Life change -Noted that about a year ago. -Patient lives alone now. Appears that he is depressed based on changes recorded in H/P -Lack of interest in doing things, appetite changes, change in health status-->??not taking care of himself. -Consider medication for mood? -Park Landscape Architect support requested. -Monitor. Hx CKD III -CrCl 30.3 mL/min. -As above has not seen physician/provider in several years. -Monitor fluid status, renally dose medications. -Monitor I/O -Avoid nephrotoxic medications. -??risk for cardiorenal syndrome. Monitor. Palliative Care Encounter -Code Status: Full Code - will continue to follow for ongoing monitoring of progression of Dyspnea as well as for appropriateness for hospice care due to CHF and Respiratory Failure Discharge planning: Not ready for discharge due to ongoing goals of care discussion Patient meets criteria for general inpatient hospice care: No Palliative Care IDT members involved: None Discussed the plan of care with the other interdisciplinary team (IDT) members of the Palliative Care and Hospice teams and Patien Subjective: Subjective/Events Mary Charles is a 89 y.o. male seen today in bed. Daughter and son at bedside. NAEON. Continues to not wear PAP at night. S/p thoracentesis on 04-09 and then 8 again. Remains full code and wanting to receive all workup and treatment available for HF. Dc planning likely to SNF continues. Met with Mary and his son and daughter today. -Discussion around palliative care team and role in chronic illnesses. -Full discussion and medical update around HF and respiratory failure. -Patient is reluctant to make a decision around code status, states that he will decide when it gets to that point. Daughter stating that the time is now to make decisions. -It does appear that he will continue to wish for workup and continue therapies at SNF. -Open and honest discussion around hospice LOC if recurrent admissions occur and/or symptoms from HF continue to worsen, and /or we see worsening renal failure (CRS) with HF. -Questions answered, concerns addressed, emotional support provided. Advance Care Planning Advanced Care Planning Conversation Pertinent Diagnosis/es: End stage CHFrEF The patient and/or surrogate consented to a voluntary Advance Care Planning conversation. Mary Charles retains capacity for medical decision-making Individuals present included: Patient and Child(jono) (son and daughter ). Summary of the conversation: as above Outcome of the conversation: Decision to remain full code and continue all aggressive care Advance Directives were not explained. Conversation focused on goals, values and medical decision-making. This is the first significant conversation I have had with this patient about advanced care planning. I spent 40 minutes providing separately identifiable ACP services with the patient and/or surrogate decision maker in a voluntary conversation discussing the patient's goals, values, and preferences as detailed in the note above. Bela Agustin, ARBORICULTURIST - INFORMATICS EDUCATOR Palliative Care Assessments: Goals of care: Continue Current Management Advanced Directives: No Known Advance Directive Functional Assessment: PPS 50% mainly sit/lie; can't do any work/extensive disease; considerable assistance; normal or reduced intake; full LOC or confusion Prognosis: depends upon goals of care Spiritual Assessment: No spiritual distress identified Bereavement and Grief: Social Work and Spiritual Needs Requested PDMP/OARRS Reviewed: No Report Available ROS: See palliative care ROS/ESAS below; All other systems were reviewed and are negative. [place] Symptom Assessment Score [place] Score Pain Score (if non-verbal, add .FLACC below) 0 Tiredness Score 0 Nausea Score 0 Depression Score 3 Anxiety Score 3 Drowsiness Score 0 Anorexia Score (0= eating well, 10= not eating) 0 Wellbeing Score (10= worst sense of well-being) 5 Constipation 0 Dyspnea Score (0= no shortness of breath) 4 Family Meeting: Participants: patient and child Family meeting was held to discuss:Diagnosis and Prognosis, Goals of Care, Treatment Options, Symptom Management, Advanced Care Planning, Prior Expressed Wishes, and Discharge Plan Objective: BP (!) 104/48 (BP Location: Left arm, Patient Position: Sitting) Pulse 61 Temp 36.7 C (98 F) (Temporal) Resp 20 Ht 5' 8 (1.727 m) Wt 200 lb 13.4 oz (91.1 kg) SpO2 97% BMI 30.54 kg/m Physical Exam Vitals and nursing note reviewed. Constitutional: General: He is not in acute distress. Appearance: He is obese. He is ill-appearing. HENT: Head: Normocephalic. Nose: Nose normal. Mouth/Throat: Mouth: Mucous membranes are dry. Pharynx: Oropharynx is clear. Eyes: General: Right eye: No discharge. Left eye: No discharge. Pupils: Pupils are equal, round, and reactive to light. Cardiovascular: Rate and Rhythm: Normal rate. Pulses: Normal pulses. Pulmonary: Effort: Pulmonary effort is normal. No respiratory distress. Abdominal: General: There is no distension. Palpations: Abdomen is soft. Tenderness: There is no abdominal tenderness. Musculoskeletal: Cervical back: Normal range of motion and neck supple. Right lower leg: Edema present. Left lower leg: Edema present. Skin: General: Skin is warm and dry. Capillary Refill: Capillary refill takes less than 2 seconds. Coloration: Skin is pale. Neurological: Mental Status: He is alert and oriented to person, place, and time. Mental status is at baseline. Psychiatric: Mood and Affect: Mood normal. Behavior: Behavior normal. Thought Content: Thought content normal. Judgment: Judgment normal. Medication information: 24-hour PRN meds received: none in 24 hours Results/Verification of Data Review Objective data reviewed (must include dates reviewed for labs, imaging reports and other specialty notes): BMP, CBC 04/16/25 Pulmonology note from -04/16/25 Data in Support of Terminal Illness: Is patient hospice appropriate? Eligible, but not consistent with GOC at this time LOURDES Ordaz CNP Nutrition Assessment Type and Reason for Visit: Reassess Nutrition Recommendations/Plan: Continue diet as ordered Adult diet Regular; No Added Salt (3-4 gm) Continue Ensure Plus daily as ordered (350 kcals, 20g protein per serving) Please continue to record meal and supplement intakes in RN Flowsheets RD to monitor labs, weight, skin status, PO intake, bowel function -follow up weekly Malnutrition Assessment: Malnutrition Status: At risk for malnutrition (Comment) Context: Acute Illness Nutrition Assessment: per Provider notes: Acute on chronic CHF exacerbation with severely reduced left ventricular ejection fraction, acute on chronic hypoxic and hypercapnic respiratory failure, bilateral pleural effusion s/p thoracentesis -neg cx and cytology, CKD, anemia of chronic disease s/p PRBC transfusion -GI followed, workup deferred due to respiratory status. Follow up with GI as an outpatient for EGD, colonoscopy, mural thickening of cecum, terminal ileum- colonoscopy as an outpatient. Family at bedside brought pt icecream. Pt reports tolerating meals and wishes to continue Ensure supplement only once daily at this time Estimated Daily Nutrient Needs: Energy Requirements Based On: Kcal/kg Weight Used for Energy Requirements: Carson Weight for Energy Calculation (kg): 70 kg Total Energy Requirements (kcals/day): 0389-1558 (25-30) Weight Used for Protein Requirements: Carson Weight in Kg Used for Protein Requirements: 70 kg Estimated Total Protein (g/day): 56-70 (.8-1.0) monitor renal function Estimated Daily Total Fluid (ml/day): per MD Nutrition Related Findings: +1 yasmine LE edema. diarrhea 04/15 -monitor. cl 87, c02 43, bun 46, cr 1.81, gfr 35.3, calcium 8.2, alb 2.2, wbc 13.1, hgb 8.0/hct 28.4. wt hx reviewed. senokot, aldactone, torsemide. wts reviewed influenced by fluid Wound Type: Skin Tears 04/15/25 0600 -- 91.1 kg (200 lb 13.4 oz) 04/13/25 0600 Bed scale 93.7 kg (206 lb 9.6 oz) 04/12/25 0903 Standing scale 91.4 kg (201 lb 6.4 oz) 04/10/25 0002 Bed scale 90.2 kg (198 lb 13.7 oz) 04/09/25 0026 Bed scale 95.1 kg (209 lb 10.5 oz) 04/06/25 1217 -- 90.7 kg (200 lb) 04/05/25 1608 Stated 90.7 kg (200 lb) Current Nutrition Therapies: Adult diet Regular; No Added Salt (3-4 gm) Current Oral Intake Average Meal Intake: 76-100% Average Supplements Intake: Unable to assess (pt reports drinking 100% Ensure once daily) Anthropometric Measures: Height: 172.7 cm (5' 8) Current Body Weight: 90.7 kg (200 lb) Weight Source: Stated Admission Body Weight: 90.7 kg (200 lb) (stated) Usual Body Weight: (none on file to review) Carson Body Weight (lbs) (Calculated): 154 lbs Carson Body Weight (Kg) (Calculated): 70 kg % Carson Body Weight (Calculated): 129.9 % BMI (kg/m2) (Calculated): 30.4 Weight Adjustment For: No Adjustment BMI Categories: Obese Class 1 (BMI 30.0-34.9) Nutrition Diagnosis: Altered nutrition-related lab values related to cardiac dysfunction as evidenced by lab values Predicted inadequate energy intake related to inadequate protein-energy intake as evidenced by poor intake prior to admission (per nursing nutrition screen) Nutrition Interventions: Nutrition Education/Counseling: Education not indicated Coordination of Nutrition Care: Continue to monitor while inpatient Plan of Care discussed with: Patient Goals: Previous Goal Met: Progressing toward Goal(s) Goals: PO intake 75% or greater, by next RD assessment Nutrition Monitoring and Evaluation: Behavioral-Environmental Outcomes: None Identified Food/Nutrient Intake Outcomes: Food and Nutrient Intake, Supplement Intake Physical Signs/Symptoms Outcomes: Biochemical Data, Chewing or Swallowing, GI Status, Nausea or Vomiting, Fluid Status or Edema, Hemodynamic Status, Nutrition Focused Physical Findings, Skin, Weight Discharge Planning: Continue current diet Kristin Duffy RD Contact: *[phone] or via Secure Chat Images from the original note were not included. OCCUPATIONAL THERAPY [facility] Treatment Note Name/MRN: Mary Charles ([id number]) Date of : 1935 Age: 89 y.o. Room/Bed: B2-268/B2-268 B Visit #: 4 out of 7 Discharge Recommendation[facility] Equipment Needed: No Assessment Pt tolerated session fair, limited by fatigue. Pt completed bed mobility and STS at Mod A. Pt stood for ~1 min with Min A, demo yasmine knee buckle and returned to sitting. Pt requires increased time and rest breaks to complete all tasks. Pt is progressing with POC but is still below baseline and is a high fall risk. Pt would benefit from continued OT to improve activity tolerance, balance, and strength needed for improved occupational performance. Pt is recommended for SNF at D/C Subjective Pt supine in bed, pleasant and agreeable. Per RN, pt okay to see Pain: Pt denies any current pain. Medical Precautions: No active isolations Proper PPE donned/doffed in accordance with facility standards. Fall Risk: [place] Fall Risk Score: 30 (Medium Risk) [place] Fall Risk Score: 30 (High Risk) Precautions/Restrictions: Fall Precautions Family/Caregiver Present: none Objective Bed Mobility Supine to sit: Mod Assist Sit to supine: Mod Assist Scooting: Dependent, x2 Person Assist HOB Elevated Use of bed rail(s) Pt completed supine to/from sit with HOB elevated, use of bed rails, and Mod A for BLE and trunk management. Pt required increased time and heavy reliance on bed features to complete. Pt required total Ax2 with draw pad to scoot to HOB Transfers/Mobility Sit to stand: Mod Assist Stand to sit: Mod Assist, Pt demo x1 failed attempt at STS with Mod A, demo difficulty engaging BLE to rise. Pt ed on improved BLE/BUE placement, completed x1 full STS onto standing scale with Mod A. Pt denied dizziness Sitting balance: SBA Standing balance: Min Assist Pt completed static stand on standing scale with BUE support on grab bars at Min A. Pt tolerated ~1 min stand then demo yasmine knee buckling, required assist to return to sitting. Pt denied dizziness Device(s) used: None Cognition - Safety judgement: decreased awareness of need for safety - Insights: decreased awareness of deficits WFL Plan Continue acute OT per plan of care. Safety/Education Safety Safety Devices in place: All fall risk precautions in place, call light within reach, left in bed, gait belt, patient at risk for falls, nurse notified, and no alarms engaged upon entry Restraints: No Education Education Given To: patient Education Provided: OT Role, Plan of Care, Transfer Training, Equipment, Fall Prevention Education, and Discharge Recommendations Education Method: Verbal, Demonstration, and Teach Back Barriers to Learning: None Education Outcome: Verbalized Understanding, Demonstrated Understanding, and Continued Education Needed AM-PAC AM-PAC Inpatient Daily Activity Raw Score: 14 ADL Inpatient CMS G-Code Modifier: CK Goals Patient Stated Goal: to get stronger Encounter Problems Encounter Problems (Active) Dressing Upper Extremities Patient will complete upper body dressing SUP (Not Addressed) Start: 04/10/25 Expected End: 04/20/25 Dressings Lower Extremities Patient will dress lower body SBA (Not Addressed) Start: 04/10/25 Expected End: 04/20/25 Mobility Patient will demonstrate functional mobility with SUP and FWW (Not Addressed) Start: 04/10/25 Expected End: 04/20/25 Toileting Patient will complete toileting tasks at standard toilet with SBA. (Not Addressed) Start: 04/10/25 Expected End: 04/20/25 Transfers Patient will complete functional transfer with rolling walker with SBA in order to prepare for ambulation. (Slowly Progressing) Start: 04/10/25 Expected End: 04/20/25 Therapy Time Individual Co-treatment Time In 1020 Time Out 1046 Minutes 26 Timed Code Treatment Minutes: 26 Minutes (2 Ther Act) PRATIMA Collier Cosigned by Jose Guadalupe Gongora OT at 04/16/2025 3:51 PM EDT Hospitalist Progress Note 04/16/2025 Subjective: Admit Date: 04/05/2025 PCP: No primary care provider on file. Room#: B2-268/B2-268 B BRIEF HOSPITAL COURSE: Patient is an 89-year-old gentleman admitted for increasing confusion and CHF exacerbation, was treated on telemetry floor initially later become more lethargic and hypoxic and was transferred to ICU for NIV placement, treated with IV diuresis, patient also has bilateral pleural effusion and underwent bilateral thoracentesis with improvement in respiratory status, tolerated BiPAP, transferred out to the telemetry service back, also had anemia and received blood transfusion. Interval History: Comfortable Family member at bedside , updated. Family meeting today, remains a full code. Diuretics changed to oral DC planning. Adult diet Regular; No Added Salt (3-4 gm) 24HR INTAKE/OUTPUT: Intake/Output Summary (Last 24 hours) at 04/16/2025 1221 Last data filed at 04/16/2025 0623 Gross per 24 hour Intake 360 ml Output -- Net 360 ml Past Medical History: Medical History[1] LABS: CBC: Recent Labs 04/14/2545604/15/2521104/16/25338 WBC 12.3* 12.4* 13.1* RBC 3.27* 3.33* 3.37* HGB 7.6* 7.8* 8.0* HCT 27.3* 28.0* 28.4* MCV 83.5 84.1 84.3 RDW 25.4* 25.3* 25.7* PLT 293 332 405 BMP: Recent Labs 04/14/2545604/15/2521104/16/25338 NA 140 139 140 K 3.8 3.5 3.6 CL 92* 90* 87* CO2 39* 40* 43* BUN 39* 43* 46* CREATININE 1.43* 1.58* 1.81* GLUCOSE 97 130* 114 CALCIUM 8.1* 8.2* 8.2* ANIONGAP 9 9 10 LIVER PROFILE: Recent Labs 04/14/2545604/15/2521104/16/25338 AST 19 21 23 ALT <6 <6 6 BILITOT 0.6 0.6 0.5 ALKPHOS 47 48 55 PROT 5.7* 5.7* 6.0* PT/INR: No results for input(s): PROTIME, INR in the last 72 hours. CARDIAC ENZYMES: No results for input(s): TROPONINI in the last 72 hours. Procalcitonin: No results found for: PROCAL COVID-19 PCR: No results for input(s): COVID19 in the last 72 hours. Objective: Vitals: BP (!) 104/48 (BP Location: Left arm, Patient Position: Sitting) Pulse 61 Temp 36.7 C (98 F) (Temporal) Resp 20 Ht 5' 8 (1.727 m) Wt 200 lb 13.4 oz (91.1 kg) SpO2 97% BMI 30.54 kg/m Pulse Ox: SpO2 Av.4 % Min: 78 % Max: 97 % Supplemental O2: O2 Flow Rate (L/min): 2 L/min Physical Exam Constitutional: Appearance: Normal appearance. Cardiovascular: Rate and Rhythm: Normal rate and regular rhythm. Pulmonary: Effort: Pulmonary effort is normal. Breath sounds: Normal breath sounds. Comments: Decreased breath sound on lung bases Abdominal: General: Bowel sounds are normal. Palpations: Abdomen is soft. Musculoskeletal: Right lower leg: No edema. Left lower leg: No edema. Neurological: General: No focal deficit present. Mental Status: He is alert and oriented to person, place, and time. Medications: Scheduled PRN Scheduled Meds[2] PRN Meds[3] Continuous Continuous Meds[4] Assessment Data: (CAT1) Reviewed 1 notes from different specialty or health system (each=1). (LOW: 2x CAT1 or independent historian MOD: 3x CAT1 or 1x CAT3 EXTENSIVE: 3x CAT1 and 1x CAT3) Acute, acute on chronic, unstable/uncontrolled chronic problems/diagnoses: Acute on chronic CHF exacerbation with severely reduced left ventricular ejection fraction- ECHO - EF 22%. GDMT per cardiology. Suspect ischemic cardiomyopathy . No ASA ramona due to anemia. Not a good candidate for invasive evaluation. Acute on chronic hypoxic and hypercapnic respiratory failure Bilateral pleural effusion status postthoracentesis on April 09 1 L from the left, 600 mL from the right. Plan for left thoracentesis again today CKD stage IIIb- creatinine stable and improving Anemia of chronic disease status post PRBC transfusion -GI followed, workup deferred due to respiratory status. Follow up with GI as an outpatient for EGD, colonoscopy Mural thickening of cecum , terminal ileum- colonoscopy as an outpatient. Hypomagnesemia Stable chronic problems affecting care, new non-acute diagnoses: Plan As a result of the above findings & factors, the following mgmt was pursued: - discontinued iv lasix, started on torsemide - continue aldactone - DC planning. - am labs, replace lytes prn - PT/OT/CM/SW - delirium precautions: increase activity - DVT prophylaxis: encourage ambulation Advance Directive: Full Code Anticipated Discharge Extended Emergency Contact Information Primary Emergency Contact: ANAHY CHARLES Mobile Relation: Daughter Preferred language: Iranian [employer] Operator needed? No Albaro Hernández MD Division of Hospitalist Medicine [employer] [1] History reviewed. No pertinent past medical history. [2] atorvastatin, 20 mg, Oral, Nightly hydrALAZINE, 10 mg, Oral, TID metoprolol succinate XL, 25 mg, Oral, Daily pantoprazole, 40 mg, Oral, qAM AC senna-docusate sodium, 2 tablet, Oral, BID spironolactone, 25 mg, Oral, Daily torsemide, 40 mg, Oral, Daily [3] PRN medications: acetaminophen OR acetaminophen, lidocaine, naloxone, ondansetron ODT OR ondansetron, polyethylene glycol (PEG) 3350 [4] Images from the original note were not included. [facility] [place], Pulmonary Medicine [address] [place] [id number] Patient - Mary Charles, Age - 89 y.o. - 1935 Room Number - B2-268/B2-268 B Consulting - Albaro Hernández MD Primary Care Physician - No primary care provider on file. [id number] Date of Admission - 04/05/2025 3:55 PM Hospital Day - 11 Chief Complaint: Leg swelling and shortness of breath Pulmonary consult: ICU transfer, respiratory failure, CHF, needs NIV at discharge Subjective Hospital summary: Mary Charles is a 89 y.o. male who was admitted for shortness of breath and lower extremity edema. CT chest with pulmonary edema and bilateral pleural effusions. ICU consulted on 04/08 for somnolence and increased dyspnea. Repeat CXR showed worsening pleural effusions and pulmonary edema. ABG with acute on possible chronic hypercarbia. Patient was transferred to ICU for NIV. S/p bilateral thoracentesis. Respiratory status improved and patient was transferred out of ICU service on 04/10/25 Interval events: Patient awake sitting up in bed with family at bedside. Just had meeting with palliative care team. Planning for SNF at discharge. Patient is not ready for hospice at this time. He denied any chest pain, cough or shortness of breath. On 0.5 liters NC. Objective Vitals: BP 102/51 Pulse 82 Temp 37.1 C (98.7 F) (Temporal) Resp 18 Ht 5' 8 (1.727 m) Wt 200 lb 13.4 oz (91.1 kg) SpO2 92% BMI 30.54 kg/m Pulse Ox: SpO2 Av % Min: 92 % Max: 94 % Supplemental O2: 0.5 liters NC. I/O 24HR INTAKE/OUTPUT: Intake/Output Summary (Last 24 hours) at 04/16/2025 0959 Last data filed at 04/16/2025 0623 Gross per 24 hour Intake 360 ml Output -- Net 360 ml Exam Physical Exam Vitals and nursing note reviewed. Constitutional: General: He is not in acute distress. Appearance: He is obese. HENT: Head: Normocephalic and atraumatic. Right Ear: External ear normal. Left Ear: External ear normal. Nose: Nose normal. No congestion or rhinorrhea. Cardiovascular: Rate and Rhythm: Normal rate and regular rhythm. Comments: Trace bilateral lower extremity edema Pulmonary: Effort: No respiratory distress. Breath sounds: No stridor. No wheezing, rhonchi or rales. Musculoskeletal: Right lower leg: Edema present. Left lower leg: Edema present. Neurological: Mental Status: He is alert and oriented to person, place, and time. Psychiatric: Mood and Affect: Mood normal. Behavior: Behavior normal. Medications Current Medications Scheduled Meds[1] PRN Mediations PRN Meds[2] Labs CBC Results from last 7 days Lab Units 04/16/25 033 WBC AUTO 10*3/uL 13.1* HEMOGLOBIN g/dL 8.0* HEMATOCRIT % 28.4* PLATELETS 10*3/uL 405 BMP: Results from last 7 days Lab Units 04/16/25 03304/15/25 0212 04/14/25 0457 SODIUM mmol/L 140 139 140 POTASSIUM mmol/L 3.6 3.5 3.8 CHLORIDE mmol/L 87* 90* 92* CO2 mmol/L 43* 40* 39* BUN mg/dL 46* 43* 39* CREATININE mg/dL 1.81* 1.58* 1.43* GLUCOSE mg/dL 114 130* 97 CALCIUM mg/dL 8.2* 8.2* 8.1* ABG: Results from last 7 days Lab Units 04/13/25 0424 PH ART 7.426 PCO2 ART mm Hg 59.2* PO2 ART mm Hg 79.2* HCO3 ART mmol/L 38.1* O2 SAT ART % 95.1* BASE EXC ART mmol/L 11.7* SOURCE OF OXYGEN Nasal Cannula (LPM) LIVER PROFILE Results from last 7 days Lab Units 04/16/25 0339 04/15/25 0212 04/14/25 0457 ALK PHOS U/L 55 48 47 BILIRUBIN TOTAL mg/dL 0.5 0.6 0.6 PROTEIN TOTAL g/dL 6.0* 5.7* 5.7* ALT U/L 6 <6 <6 AST U/L 23 21 19 INR PTT No results found for: PTT Cultures Right pleural fluid Culture: NGTD Cytology: no malignant cells, reactive cell changes/ inflammation Left pleural fluid Culture: NGTD Cytology: negative for malignant cells Radiology Chest x-ray 04/15/2025 IMPRESSION: Persistent left-sided pleural effusion, slightly decreased compared to previous exam. No evidence for pneumothorax CT chest 04/06/25: Findings: The aorta and main pulmonary artery are grossly of normal caliber. The right pulmonary artery measures approximately 3.7 cm in diameter. The ascending thoracic aorta measures 3.7 cm in diameter. Mild calcification of the aortic arch. Extensive diffuse coronary artery calcification present with question coronary stents. Heart size is enlarged. There is no significant adenopathy demonstrated. Small subcentimeter mediastinal lymph nodes. Moderate to large bilateral pleural effusions with bilateral infiltrates and/or compressive atelectasis of the lungs. Presumed component of pulmonary edema with some coarsening of the interstitium. Dense calcification along the origin of the celiac artery, incompletely covered. Moderate to large osteophytes along the right anterior thoracic spine at multiple levels. IMPRESSION: Impression: Findings thought to most likely represent CHF. A superimposed infectious etiology is not excluded. The right pulmonary artery appears enlarged. Echocardiogram 04/06/2025 Left Ventricle: Left ventricle is mildly dilated. Normal wall thickness. Severely reduced left ventricular systolic function. EF by 2D Simpsons Biplane is 22%. Severe global hypokinesis present. Right Ventricle: Not well visualized. Right ventricle size is normal. Normal systolic function. Mitral Valve: Moderate (2+) regurgitation. Tricuspid Valve: Severely elevated RVSP. RVSP is 66 mmHg. Left Atrium: Left atrium is mildly dilated. Pericardium: Left pleural effusion. 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 CXR with residual left pleural effusion, negative for pneumothorax. Left thoracentesis (-1000 ml) and right thoracentesis (-600 ml) on 04/09. Transudate. Culture negative. Cytology negative for malignant cells. Repeat Left thoracentesis 04/14 (-650 ml). Weaned down to 0.5 liters NC. Maintain SpO2 > 92% Discussed with Cardiology team today,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 heart is enlarged with vascular redistribution suggesting venous congestion. Lungs: Moderate left and small right pleural effusions, and diffuse interstitial opacities are unchanged, with bibasilar atelectasis. No pneumothorax. Bones: Degenerative spurring is seen in the thoracic spine. No acute osseous findings. IMPRESSION: CHF with pulmonary edema and pleural effusions, left larger than right. CT chest 04/06/25: Findings: The aorta and main pulmonary artery are grossly of normal caliber. The right pulmonary artery measures approximately 3.7 cm in diameter. The ascending thoracic aorta measures 3.7 cm in diameter. Mild calcification of the aortic arch. Extensive diffuse coronary artery calcification present with question coronary stents. Heart size is enlarged. There is no significant adenopathy demonstrated. Small subcentimeter mediastinal lymph nodes. Moderate to large bilateral pleural effusions with bilateral infiltrates and/or compressive atelectasis of the lungs. Presumed component of pulmonary edema with some coarsening of the interstitium. Dense calcification along the origin of the celiac artery, incompletely covered. Moderate to large osteophytes along the right anterior thoracic spine at multiple levels. IMPRESSION: Impression: Findings thought to most likely represent CHF. A superimposed infectious etiology is not excluded. The right pulmonary artery appears enlarged. Echocardiogram 04/06/2025 Left Ventricle: Left ventricle is mildly dilated. Normal wall thickness. Severely reduced left ventricular systolic function. EF by 2D Simpsons Biplane is 22%. Severe global hypokinesis present. Right Ventricle: Not well visualized. Right ventricle size is normal. Normal systolic function. Mitral Valve: Moderate (2+) regurgitation. Tricuspid Valve: Severely elevated RVSP. RVSP is 66 mmHg. Left Atrium: Left atrium is mildly dilated. Pericardium: Left pleural effusion. 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 Follow-up chest x-ray today pending. Left thoracentesis (-1000 ml) and right thoracentesis (-600 ml) on 04/09. Transudate. Culture negative. Cytology negative for malignant cells. Repeat Left thoracentesis 04/14 (-650 ml). On 2 liters NC. Wean FiO2 as patient tolerates. Keep SpO2 > or = 92% Aggressive diuresis as per Cardiology team Encourage use of BiPAP at HS. Patient did not wear last night. Patient will need to have bedside spirometry performed to assist with qualifying for PAP per [facility]. Patient also needs to be compliant with use in hospital before one can be arranged at home. PT/OT recommending SNF GI recommendations noted. Plan for outpatient EGD/ colonoscopy once stable. Updated patient's daughter Anahy today via telephone. Will continue to follow. Palliative care meeting planned for tomorrow with patient and family Advance Directive: Full Code Discharge planning: Hospital follow-up has been scheduled with Dr. Garcia on 05/18/2025. Case discussed with nurse and patient Questions and concerns addressed. [1] atorvastatin, 20 mg, Oral, Nightly furosemide, 80 mg, IntraVENous, BID hydrALAZINE, 10 mg, Oral, TID metoprolol succinate XL, 25 mg, Oral, Daily pantoprazole, 40 mg, Oral, qAM AC senna-docusate sodium, 2 tablet, Oral, BID spironolactone, 25 mg, Oral, Daily [2] PRN medications: acetaminophen OR acetaminophen, lidocaine, naloxone, ondansetron ODT OR ondansetron, [START ON 04/16/2025] polyethylene glycol (PEG) 3350 [3] Patient Active Problem List Diagnosis Acute congestive heart failure, unspecified heart failure type (HCC) Hospitalist Progress Note 04/15/2025 Subjective: Admit Date: 04/05/2025 PCP: No primary care provider on file. Room#: -[phone] B BRIEF HOSPITAL COURSE: Patient is an 89-year-old gentleman admitted for increasing confusion and CHF exacerbation, was treated on telemetry floor initially later become more lethargic and hypoxic and was transferred to ICU for NIV placement, treated with IV diuresis, patient also has bilateral pleural effusion and underwent bilateral thoracentesis with improvement in respiratory status, tolerated BiPAP, transferred out to the telemetry service back, also had anemia and received blood transfusion. Interval History: Comfortable, s/p left thoracentesis yesterday Loose BM- will DC scheduled miralax Plan for family meeting tomorrow Now on iv lasix Adult diet Regular; No Added Salt (3-4 gm) 24HR INTAKE/OUTPUT: Intake/Output Summary (Last 24 hours) at 04/15/2025 1157 Last data filed at 04/15/2025 0726 Gross per 24 hour Intake 200 ml Output 750 ml Net -550 ml Past Medical History: Medical History[1] LABS: CBC: Recent Labs 04/13/2521304/13/2542304/14/2545604/15/25211 WBC 12.7* -- 12.3* 12.4* RBC 3.36* -- 3.27* 3.33* HGB 7.8* 11.3* 7.6* 7.8* HCT 28.2* -- 27.3* 28.0* MCV 83.9 -- 83.5 84.1 RDW 25.0* -- 25.4* 25.3* PLT 276 -- 293 332 BMP: Recent Labs 04/13/2521304/14/2545604/15/25211 NA 139 140 139 K 3.4* 3.8 3.5 CL 93* 92* 90* CO2 36* 39* 40* BUN 37* 39* 43* CREATININE 1.46* 1.43* 1.58* GLUCOSE 94 97 130* CALCIUM 8.1* 8.1* 8.2* ANIONGAP 10 9 9 LIVER PROFILE: Recent Labs 04/13/2521304/14/2545604/15/25211 AST 25 19 21 ALT <6 <6 <6 BILITOT 0.6 0.6 0.6 ALKPHOS 52 47 48 PROT 5.8* 5.7* 5.7* PT/INR: No results for input(s): PROTIME, INR in the last 72 hours. CARDIAC ENZYMES: No results for input(s): TROPONINI in the last 72 hours. Procalcitonin: No results found for: PROCAL COVID-19 PCR: No results for input(s): COVID19 in the last 72 hours. Objective: Vitals: BP (!) 96/49 Pulse 63 Temp 36.6 C (97.9 F) (Temporal) Resp 20 Ht 5' 8 (1.727 m) Wt 200 lb 13.4 oz (91.1 kg) SpO2 93% BMI 30.54 kg/m Pulse Ox: SpO2 Av % Min: 93 % Max: 99 % Supplemental O2: O2 Flow Rate (L/min): 2 L/min Physical Exam Constitutional: Appearance: Normal appearance. Cardiovascular: Rate and Rhythm: Normal rate and regular rhythm. Pulmonary: Effort: Pulmonary effort is normal. Breath sounds: Normal breath sounds. Comments: Decreased breath sound on lung bases Abdominal: General: Bowel sounds are normal. Palpations: Abdomen is soft. Musculoskeletal: Right lower leg: No edema. Left lower leg: No edema. Neurological: General: No focal deficit present. Mental Status: He is alert and oriented to person, place, and time. Medications: Scheduled PRN Scheduled Meds[2] PRN Meds[3] Continuous Continuous Meds[4] Assessment Data: (CAT1) Reviewed 1 notes from different specialty or health system (each=1). (LOW: 2x CAT1 or independent historian MOD: 3x CAT1 or 1x CAT3 EXTENSIVE: 3x CAT1 and 1x CAT3) Acute, acute on chronic, unstable/uncontrolled chronic problems/diagnoses: Acute on chronic CHF exacerbation with severely reduced left ventricular ejection fraction- ECHO - EF 22%. GDMT per cardiology. Suspect ischemic cardiomyopathy . No ASA ramona due to anemia. Not a good candidate for invasive evaluation. Acute on chronic hypoxic and hypercapnic respiratory failure Bilateral pleural effusion status postthoracentesis on April 09 1 L from the left, 600 mL from the right. Plan for left thoracentesis again today CKD stage IIIb- creatinine stable and improving Anemia of chronic disease status post PRBC transfusion -GI followed, workup deferred due to respiratory status. Follow up with GI as an outpatient for EGD, colonoscopy Mural thickening of cecum , terminal ileum- colonoscopy as an outpatient. Hypomagnesemia Stable chronic problems affecting care, new non-acute diagnoses: Plan As a result of the above findings & factors, the following mgmt was pursued: - on laisix and aldactone - s/p thoracentesis left on 04/14- 650 ml removed - on iv lasix - pulm and cardiology following - family meeting in am - am labs, replace lytes prn - PT/OT/CM/SW - delirium precautions: increase activity - DVT prophylaxis: encourage ambulation Advance Directive: Full Code Anticipated Discharge Extended Emergency Contact Information Primary Emergency Contact: MELVINANAHY Mobile Relation: Daughter Preferred language: [employer] Operator needed? No Albaro Hernández MD Division of Hospitalist Medicine [employer] [1] History reviewed. No pertinent past medical history. [2] atorvastatin, 20 mg, Oral, Nightly furosemide, 80 mg, IntraVENous, BID hydrALAZINE, 10 mg, Oral, TID metoprolol succinate XL, 25 mg, Oral, Daily pantoprazole, 40 mg, Oral, qAM AC senna-docusate sodium, 2 tablet, Oral, BID spironolactone, 25 mg, Oral, Daily [3] PRN medications: acetaminophen OR acetaminophen, lidocaine, naloxone, ondansetron ODT OR ondansetron, [START ON 04/16/2025] polyethylene glycol (PEG) 3350 [4] [facility] Care Department Progress Note Comment or reasoning for refusal: Patient was seen in attempts to fulfill CPAP/BiPAP/AutoPAP order. Patient refused PAP therapy/study at this time. Patient was educated on medical need and reasoning for physician order to ensure patient was making an informed medical decision. All of the patient's questions were answered at this time and patient was informed that if the patient changes their mind regarding wearing PAP to hit their call light or inform their nurse to contact Respiratory. A second, consecutive night of refusing PAP therapy/study results in order completion in the EMR. If future CPAP/BiPAP/AutoPAP therapy or study is indicated please place another order in the EMR and the assigned Respiratory Therapist will reattempt to fulfill orders. Reason for refusal: does not want wear pap tonight Thank you for involving Respiratory in the care of this patient, [facility] [place] [facility] Cardiology /Electrophysiology Progress Note HPI / Interval History: Mary Charles is a 89 y.o. year old male patient who has not received any medical care for a number of years presented to the hospital with progressive shortness of breath, hypoxia and edema. Chest x-ray with pulmonary edema and bilateral pleural effusions. High-sensitivity troponins 29-28, proBNP 8438, creatinine 1.44, hemoglobin 5.6 status post 2 units PRBC. Cardiology was consulted for new heart failure. He was seen in consult by Dr. Scherer and due to age, anemia, and frailty was recommended a conservative palliative approach. Additionally he has GI following for mural thickening involving the cecum and terminal ileum with concern for neoplasm or inflammation. GI plans for EGD colonoscopy when stabilized from a cardiac standpoint. 04/08/2025 he transferred to the ICU with acute hypercarbia requiring NIV and bilateral thoracentesis. He was changed to oral diuretic on 04/11/2025, however when he was seen 04/12/2025 he required additional IV Lasix due to chest x-ray with some pulmonary congestion. He was also placed on BiPAP per pulmonology. Today, he is not requiring BiPAP. He continues to have O2 via nasal cannula. He continues to have shortness of breath, but states overall he feels better than when he was admitted. He denies chest pain, PND, orthopnea, palpitations or syncope. Lower extremity edema is improved. Family is at bedside and we discussed that every time we transition him from IV Lasix, he has some decompensation. Assessment/Plan HF NYHA Class [] I [x] II [x] III [] IV []Unable to assess [] N/A HFrEF 2/2 suspected ICM, Stage C, Class II-III, EF 22% per TTE 03/2025 -Weight up 5 pounds overnight, I am unsure if this is accurate -I&O + 576 mL (if accurate) -CXR shows persistent pulmonary edema and left pleural effusion -stop torsemide and start Lasix 80 mg IV twice daily -He will likely need high doses of p.o. diuretics to maintain euvolemia - continue Toprol 25 mg po daily - continue hydralazine 25 mg po TID -Continue spironolactone 25 mg p.o. daily - unable to titrate further GDMT 2/2 low BP - no ASA 2/2 anemia - continue atorvastatin 20 mg po daily -not a good candidate for invasive work up at this point due to frailty, anemia - Agree with having palliative care see patient again as he does not appear to be tolerating p.o. diuresis and has recurrence of pleural effusions and heart failure when we take him off IV Lasix Bilateral pleural effusion -Bedside thoracentesis 04/09/2025 with 1 L removed from the left and 600 mL removed from the right -CXR this a.m. with recurrent left pleural effusion and thoracentesis has been ordered by pulmonology CKD - creatinine 1.46 on admission, 1.63 > 1.78 > 1.53 >1.65> 1.55>1.53>1.46>1.43 - Continue to monitor Anemia - Hgb 5.6 on admission and 7.8 after 2 uPRBc >7.6 today - continue venofer - per primary team -no current plans for EGD/Colonoscopy until more stable Mural thickening cecum and terminal ileum per CT scan - GI following - they recommend EGD and colonoscopy once cardiac status improved Hypomagnesemia, resolved - Received 2 GM Mg Sulfate 04/11/25 Dispo: continue to follow Medications: atorvastatin, 20 mg, Oral, Nightly hydrALAZINE, 25 mg, Oral, TID metoprolol succinate XL, 25 mg, Oral, Daily pantoprazole, 40 mg, Oral, qAM AC polyethylene glycol (PEG) 3350, 17 g, Oral, Daily senna-docusate sodium, 2 tablet, Oral, BID spironolactone, 25 mg, Oral, Daily torsemide, 40 mg, Oral, Daily Infusion Medications: Continuous Meds[1] Physical Examination: Vitals: 04/13/25201104/13/25 2323 04/14/25 0340 04/14/25 0741 BP: 112/62 (!) 105/48 99/50 105/54 BP Location: Left arm Patient Position: Sitting Pulse: 69 79 74 71 Resp: 18 18 18 16 Temp: 36.6 C (97.8 F) 36.6 C (97.8 F) 36.3 C (97.3 F) 36.7 C (98 F) TempSrc: Temporal Temporal Temporal Temporal SpO2: 95% 98% 95% 95% Weight: Height: Intake/Output Summary (Last 24 hours) at 04/14/2025 1210 Last data filed at 04/13/2025 1729 Gross per 24 hour Intake 300 ml Output -- Net 300 ml Patient Vitals for the past 168 hrs: Weight Weight Method 04/13/25 0600 206 lb 9.6 oz (93.7 kg) Bed scale 04/12/25 0903 201 lb 6.4 oz (91.4 kg) Standing scale 04/10/25 0002 198 lb 13.7 oz (90.2 kg) Bed scale 04/09/25 0026 209 lb 10.5 oz (95.1 kg) Bed scale Physical Exam Vitals reviewed. Constitutional: Appearance: Normal appearance. HENT: Head: Normocephalic and atraumatic. Mouth/Throat: Mouth: Mucous membranes are moist. Pharynx: Oropharynx is clear. Neck: Vascular: No JVD. Cardiovascular: Rate and Rhythm: Normal rate and regular rhythm. Heart sounds: Normal heart sounds. Pulmonary: Effort: Pulmonary effort is normal. Breath sounds: Examination of the right-lower field reveals decreased breath sounds. Examination of the left-lower field reveals decreased breath sounds. Decreased breath sounds present. Abdominal: General: Abdomen is protuberant. Palpations: Abdomen is soft. Tenderness: There is no abdominal tenderness. Musculoskeletal: Right lower leg: Edema (trace) present. Left lower leg: Edema (trace) present. Skin: General: Skin is warm. Coloration: Skin is pale. Neurological: Mental Status: He is alert and oriented to person, place, and time. Psychiatric: Attention and Perception: Attention normal. Mood and Affect: Mood normal. Speech: Speech normal. Laboratory Tests: TROPONIN I, CONVENTIONAL SENSITIVITY No results found for: CKTOTAL, CKMB, CKMBINDEX, TROPONINI TROPONIN I, HIGH SENSITIVITY Troponin HS Serial Baseline Date Value Ref Range Status 04/05/2025 29 <=35 ng/L Final Comment: In individuals presenting with symptoms > 2h, a baseline troponin <= 5 ng/L suggests acute cardiac injury is unlikely and further serial testing is generally not indicated. 04/05/2025 30 <=35 ng/L Final Comment: In individuals presenting with symptoms > 2h, a baseline troponin <= 5 ng/L suggests acute cardiac injury is unlikely and further serial testing is generally not indicated. 2h Troponin HS (Serial 2nd Troponin) Date Value Ref Range Status 04/05/2025 28 <=35 ng/L Final Comment: 2h troponin (2nd troponin) samples collected between 1h 40 min and 2h and 20 min of the baseline collection time can be utilized to interpret delta troponins as per [employer] algorithms. Samples collected outside this timeframe need to be interpreted clinically. Rising or falling troponin delta below 2 ng/L as compared to baseline value suggests that acute cardiac injury is unlikely. No results found for: TROPDELTBASE No results found for: TROPHS3 No results found for: TROPDELTSEC Recent Labs 04/12/2532404/13/2521304/14/25 0457 NA 139 139 140 K 3.7 3.4* 3.8 CL 95* 93* 92* CO2 37* 36* 39* BUN 40* 37* 39* CREATININE 1.53* 1.46* 1.43* Recent Labs 04/12/2532404/13/2521304/13/25 0424 04/14/25 0457 WBC 12.0* 12.7* -- 12.3* HGB 7.4* 7.8* 11.3* 7.6* HCT 26.8* 28.2* -- 27.3* MCV 83.8 83.9 -- 83.5 PLT 272 276 -- 293 No results for input(s): BNP in the last 72 hours. No results for input(s): TRIG, HDL, LDLCALC, CHOL in the last 72 hours. No results found for: LDLCHOLESTER Lab Results Component Value Date TSH 10.19 (H) 04/05/2025 EF BP Date Value Ref Range Status 04/06/2025 22 (A) 55 - 100 % Final 04/05/25 TRANSTHORACIC ECHOCARDIOGRAM (TTE) COMPLETE (CONTRAST/BUBBLE/3D PRN) 04/06/2025 12:42 PM (Final) Interpretation Summary Left Ventricle: Left ventricle is mildly dilated. Normal wall thickness. Severely reduced left ventricular systolic function. EF by 2D Simpsons Biplane is 22%. Severe global hypokinesis present. Right Ventricle: Not well visualized. Right ventricle size is normal. Normal systolic function. Mitral Valve: Moderate (2+) regurgitation. Tricuspid Valve: Severely elevated RVSP. RVSP is 66 mmHg. Left Atrium: Left atrium is mildly dilated. Pericardium: Left pleural effusion. Technically difficult study. Signed by: Thomas Hinton MD on 04/06/2025 12:42 PM Other reports reviewed: Cardiac Tests: Telemetry findings reviewed: SR with NSVT EF BP Date Value Ref Range Status 04/06/2025 22 (A) 55 - 100 % Final LOURDES Benson CNP Date Of Service 04/14/2025 [1] Images from the original note were not included. OCCUPATIONAL THERAPY [facility] Name/MRN: Mary Charles ([id number]) Date: 04/14/2025 Attempted to see pt for OT tx. Pt reported being very fatigued after getting cleaned up and working with PT this AM. Unable to encourage participation in OT tx at this time. Marleni Victro OT Images from the original note were not included. PHYSICAL THERAPY [facility] Treatment Note Name/MRN: Mary Charles ([id number]) Date of : 1935 Age: 89 y.o. Room[facility]Bed: [facility] Visit #: 4 out of 5 Discharge Recommendation[facility] Equipment Needed: No Assessment Patient supine in bed upon arrival, reports feeling tired. Patient agrees to bed level exercises. Patient will continue to benefit from skilled services prior to discharge. Upon discharge recommend SNF. Subjective Patient agrees to participate in therapy. Per nursing, ok to participate. HR: &0's - 85 bpm throughout session. 72 bpm at conclusion of session. Pain: Pt denies any current pain. Medical Precautions: No active isolations Proper PPE donned/doffed in accordance with facility standards. Fall Risk: Tompkins Fall Risk Score: 60 (High Risk) Precautions/Restrictions: Lines/Drains/Airways: ICU tele, 2L O2 n.c., external catheter Overall Cognitive Status: WFL Overall Orientation Status: Oriented x4 Family/Caregiver Present: none Objective Exercises Exercises Quad Sets: supine BLE 10 x 1 Heelslides: supine BLE 10 x 1 Gluteal Sets: supine 10 x 1 Hip Abduction: supine BLE 10 x 1 Hip Adduction: supine BLE 10 x 1 Knee Short Arc Quad: supine BLE 10 x 1 Ankle Pumps: supine 10 x 1 Exercises performed to increase strength and activity tolerance for improved mobility. Verbal cues and visual demonstration provided to perform with proper technique for optimal benefits. Patient performs with good technique. Plan Continue acute PT per plan of care. Safety/Education Safety Safety Devices in place: All fall risk precautions in place, call light within reach, left in bed, patient at risk for falls, and nurse notified Restraints: No Education Education Given To: patient Education Provided: PT Role and PT Goals Education Method: Verbal Barriers to Learning: None Education Outcome: Verbalized Understanding Outcome Measures AM-PAC AM-PAC Inpatient Mobility Raw Score (No Stairs) : 13 JH-HLM JH-HLM Score: Bed activity Goals Patient Stated Goal: Encounter Problems Encounter Problems (Active) Balance Patient will maintain dynamic standing balance for 3-5 minutes with CGA in order to demonstrate decreased risk of falling. (Not Addressed) Start: 04/07/25 Expected End: 04/14/25 Exercise Patient will complete lower extremity exercises for 1-2 sets / 5-10 reps in order to improve strength and activity tolerance for mobility. (Progressing) Start: 04/07/25 Expected End: 04/14/25 Mobility Patient will ambulate 25 feet with CGA and least restrictive device in order to improve safety and independence with mobility. (Not Addressed) Start: 04/07/25 Expected End: 04/14/25 Transfers Patient will perform bed mobility with CGA in order to improve independence and prepare for out of bed mobility. (Not Addressed) Start: 04/07/25 Expected End: 04/14/25 Patient will complete functional transfer with least restrictive device with CGA in order to prepare for ambulation. (Not Addressed) Start: 04/07/25 Expected End: 04/14/25 Therapy Time Individual Co-treatment Time In 1055 Time Out 1104 Minutes 9 Timed Code Treatment Minutes: 9 Minutes (ther ex x 1) Katelynn Charles PTA Cosigned by Lucrecia Cabral PT at 04/14/2025 1:10 PM EDT Hospitalist Progress Note 04/14/2025 Subjective: Admit Date: 04/05/2025 PCP: No primary care provider on file. Room#: B2-268/B2-268 B BRIEF HOSPITAL COURSE: Patient is an 89-year-old gentleman admitted for increasing confusion and CHF exacerbation, was treated on telemetry floor initially later become more lethargic and hypoxic and was transferred to ICU for NIV placement, treated with IV diuresis, patient also has bilateral pleural effusion and underwent bilateral thoracentesis with improvement in respiratory status, tolerated BiPAP, transferred out to the telemetry service back, also had anemia and received blood transfusion. Interval History: Seen and examined. Comfortable CXR repeated yesterday- still with significant left pleural effusion- pulm planning to get left thoracentesis today. Remains on diuretics- cardiology following . Re discussion with palliative care regarding goals of care. Adult diet Regular; No Added Salt (3-4 gm) 24HR INTAKE/OUTPUT: Intake/Output Summary (Last 24 hours) at 04/14/2025 1056 Last data filed at 04/13/2025 1729 Gross per 24 hour Intake 300 ml Output -- Net 300 ml Past Medical History: Medical History[1] LABS: CBC: Recent Labs 04/12/2532404/13/2521304/13/2542304/14/25456 WBC 12.0* 12.7* -- 12.3* RBC 3.20* 3.36* -- 3.27* HGB 7.4* 7.8* 11.3* 7.6* HCT 26.8* 28.2* -- 27.3* MCV 83.8 83.9 -- 83.5 RDW 24.3* 25.0* -- 25.4* PLT 272 276 -- 293 BMP: Recent Labs 04/12/2532404/13/2521304/14/25456 NA 139 139 140 K 3.7 3.4* 3.8 CL 95* 93* 92* CO2 37* 36* 39* BUN 40* 37* 39* CREATININE 1.53* 1.46* 1.43* GLUCOSE 103 94 97 CALCIUM 7.9* 8.1* 8.1* ANIONGAP 7 10 9 LIVER PROFILE: Recent Labs 04/12/2532404/13/2521304/14/25 0457 AST 19 25 19 ALT <6 <6 <6 BILITOT 0.6 0.6 0.6 ALKPHOS 49 52 47 PROT 5.6* 5.8* 5.7* PT/INR: No results for input(s): PROTIME, INR in the last 72 hours. CARDIAC ENZYMES: No results for input(s): TROPONINI in the last 72 hours. Procalcitonin: No results found for: PROCAL COVID-19 PCR: No results for input(s): COVID19 in the last 72 hours. Objective: Vitals: BP 105/54 (BP Location: Left arm, Patient Position: Sitting) Pulse 71 Temp 36.7 C (98 F) (Temporal) Resp 16 Ht 5' 8 (1.727 m) Wt 206 lb 9.6 oz (93.7 kg) SpO2 95% BMI 31.41 kg/m Pulse Ox: SpO2 Av % Min: 92 % Max: 98 % Supplemental O2: O2 Flow Rate (L/min): 2 L/min Physical Exam Constitutional: Appearance: Normal appearance. Cardiovascular: Rate and Rhythm: Normal rate and regular rhythm. Pulmonary: Effort: Pulmonary effort is normal. Breath sounds: Normal breath sounds. Comments: Decreased breath sound on lung bases Abdominal: General: Bowel sounds are normal. Palpations: Abdomen is soft. Musculoskeletal: Right lower leg: No edema. Left lower leg: No edema. Neurological: General: No focal deficit present. Mental Status: He is alert and oriented to person, place, and time. Medications: Scheduled PRN Scheduled Meds[2] PRN Meds[3] Continuous Continuous Meds[4] Assessment Data: (CAT1) Reviewed 1 notes from different specialty or health system (each=1). (LOW: 2x CAT1 or independent historian MOD: 3x CAT1 or 1x CAT3 EXTENSIVE: 3x CAT1 and 1x CAT3) Acute, acute on chronic, unstable/uncontrolled chronic problems/diagnoses: Acute on chronic CHF exacerbation with severely reduced left ventricular ejection fraction- ECHO - EF 22%. GDMT per cardiology. Suspect ischemic cardiomyopathy . No ASA ramona due to anemia. Not a good candidate for invasive evaluation. Acute on chronic hypoxic and hypercapnic respiratory failure Bilateral pleural effusion status postthoracentesis on April 09 1 L from the left, 600 mL from the right. Plan for left thoracentesis again today CKD stage IIIb- creatinine stable and improving Anemia of chronic disease status post PRBC transfusion -GI followed, workup deferred due to respiratory status. Follow up with GI as an outpatient for EGD, colonoscopy Mural thickening of cecum , terminal ileum- colonoscopy as an outpatient. Hypomagnesemia Stable chronic problems affecting care, new non-acute diagnoses: Plan As a result of the above findings & factors, the following mgmt was pursued: - on torsemide, aldactone - creatinine stable and improving - hemoglobin stable - plan for left thoracentesis again today - palliative re consulted for discussion about goals of care - labs in am - am labs, replace lytes prn - PT/OT/CM/SW - delirium precautions: increase activity - DVT prophylaxis: encourage ambulation Advance Directive: Full Code Anticipated Discharge Extended Emergency Contact Information Primary Emergency Contact: ANAHY CHARLES Mobile Relation: Daughter Preferred language: Iranian [employer] Utility Operator needed? No Albaro Hernández MD Division of Hospitalist Medicine [facility] [1] History reviewed. No pertinent past medical history. [2] atorvastatin, 20 mg, Oral, Nightly hydrALAZINE, 25 mg, Oral, TID metoprolol succinate XL, 25 mg, Oral, Daily pantoprazole, 40 mg, Oral, qAM AC polyethylene glycol (PEG) 3350, 17 g, Oral, Daily senna-docusate sodium, 2 tablet, Oral, BID spironolactone, 25 mg, Oral, Daily torsemide, 40 mg, Oral, Daily [3] PRN medications: acetaminophen OR acetaminophen, lidocaine, naloxone, ondansetron ODT OR ondansetron [4] Images from the original note were not included. [facility], Pulmonary Medicine [address] [place] [id number] Patient - Mary Charles, Age - 89 y.o. - 1935 Room Number - B2-268/B2-268 B Consulting - Albaro Hernández MD Primary Care Physician - No [facility] care provider [facility] file[id number] Date of Admission - 04/05/2025 3:55 PM Hospital Day - 9 Chief Complaint: Leg swelling and shortness of breath Pulmonary consult: ICU transfer, respiratory failure, CHF, needs NIV at discharge Subjective Hospital summary: Mary Charles is a 89 y.o. male who was admitted for shortness of breath and lower extremity edema. CT chest with pulmonary edema and bilateral pleural effusions. ICU consulted on 04/08 for somnolence and increased dyspnea. Repeat CXR showed worsening pleural effusions and pulmonary edema. ABG with acute on possible chronic hypercarbia. Patient was transferred to ICU for NIV. S/p bilateral thoracentesis. Respiratory status improved and patient was transferred out of ICU service on 04/10/25 Interval events: Patient sitting up in bed with RN at bedside. He states he is feeling okay this morning. Wore his PAP last night and doing better with nasal pillow mask. Denied any chest pain, cough, fever or chills today. On 2 liters NC. I reviewed CXR imaging with patient this morning. Discussed the possibility of doing repeat thoracentesis as he continues to have pleural effusions/pulmonary edema on CXR despite diuretics. Patient expressed his concern fears stating I don't want to . He was agreeable to try thoracentesis again to see if this helped. Objective Vitals: BP 105/54 (BP Location: Left arm, Patient Position: Sitting) Pulse 71 Temp 36.7 C (98 F) (Temporal) Resp 16 Ht 5' 8 (1.727 m) Wt 206 lb 9.6 oz (93.7 kg) SpO2 95% BMI 31.41 kg/m Pulse Ox: SpO2 Av % Min: 92 % Max: 98 % Supplemental O2: O2 Flow Rate (L/min): 2 L/min I/O 24HR INTAKE/OUTPUT: Intake/Output Summary (Last 24 hours) at 04/14/2025 1427 Last data filed at 04/13/2025 1729 Gross per 24 hour Intake 300 ml Output -- Net 300 ml Exam Physical Exam Vitals and nursing note reviewed. Constitutional: General: He is not in acute distress. Appearance: He is obese. HENT: Head: Normocephalic and atraumatic. Right Ear: External ear normal. Left Ear: External ear normal. Nose: Nose normal. No congestion or rhinorrhea. Cardiovascular: Rate and Rhythm: Normal rate and regular rhythm. Comments: Trace bilateral lower extremity edema Pulmonary: Effort: No respiratory distress. Breath sounds: No stridor. No wheezing, rhonchi or rales. Musculoskeletal: Right lower leg: Edema present. Left lower leg: Edema present. Neurological: Mental Status: He is alert and oriented to person, place, and time. Psychiatric: Mood and Affect: Mood normal. Behavior: Behavior normal. Medications Current Medications Scheduled Meds[1] PRN Mediations PRN Meds[2] Labs CBC Results from last 7 days Lab Units 04/14/25 0457 WBC AUTO 10*3/uL 12.3* HEMOGLOBIN g/dL 7.6* HEMATOCRIT % 27.3* PLATELETS 10*3/uL 293 BMP: Results from last 7 days Lab Units 04/14/25 0457 04/13/254 04/12/25 0325 SODIUM mmol/L 140 139 139 POTASSIUM mmol/L 3.8 3.4* 3.7 CHLORIDE mmol/L 92* 93* 95* CO2 mmol/L 39* 36* 37* BUN mg/dL 39* 37* 40* CREATININE mg/dL 1.43* 1.46* 1.53* GLUCOSE mg/dL 97 94 103 CALCIUM mg/dL 8.1* 8.1* 7.9* ABG: Results from last 7 days Lab Units 04/13/25 0424 04/08/25 2053 04/08/25 1654 PH ART 7.426 7.332* 7.296* PCO2 ART mm Hg 59.2* 75.1* 80.1* PO2 ART mm Hg 79.2* 104.0 92.0 HCO3 ART mmol/L 38.1* 38.9* 38.2* O2 SAT ART % 95.1* 97.0 96.1* BASE EXC ART mmol/L 11.7* 11.2* 9.9* SOURCE OF OXYGEN Nasal Cannula (LPM) Non-Invasive Ventilator Nasal Cannula (LPM) LIVER PROFILE Results from last 7 days Lab Units 04/14/2545604/13/254 04/12/25 0325 ALK PHOS U/L 47 52 49 BILIRUBIN TOTAL mg/dL 0.6 0.6 0.6 PROTEIN TOTAL g/dL 5.7* 5.8* 5.6* ALT U/L <6 <6 <6 AST U/L 19 25 19 INR PTT No results found for: PTT Cultures Right pleural fluid Culture: NGTD Cytology: no malignant cells, reactive cell changes/ inflammation Left pleural fluid Culture: NGTD Cytology: negative for malignant cells Radiology Chest x-ray 04/13/2025 FINDINGS: Limitations: The study is limited due to patient rotation. Heart/Mediastinum: The heart is enlarged with vascular redistribution suggesting venous congestion. Lungs: Moderate left and small right pleural effusions, and diffuse interstitial opacities are unchanged, with bibasilar atelectasis. No pneumothorax. Bones: Degenerative spurring is seen in the thoracic spine. No acute osseous findings. IMPRESSION: CHF with pulmonary edema and pleural effusions, left larger than right. CT chest 04/06/25: Findings: The aorta and main pulmonary artery are grossly of normal caliber. The right pulmonary artery measures approximately 3.7 cm in diameter. The ascending thoracic aorta measures 3.7 cm in diameter. Mild calcification of the aortic arch. Extensive diffuse coronary artery calcification present with question coronary stents. Heart size is enlarged. There is no significant adenopathy demonstrated. Small subcentimeter mediastinal lymph nodes. Moderate to large bilateral pleural effusions with bilateral infiltrates and/or compressive atelectasis of the lungs. Presumed component of pulmonary edema with some coarsening of the interstitium. Dense calcification along the origin of the celiac artery, incompletely covered. Moderate to large osteophytes along the right anterior thoracic spine at multiple levels. IMPRESSION: Impression: Findings thought to most likely represent CHF. A superimposed infectious etiology is not excluded. The right pulmonary artery appears enlarged. Echocardiogram 04/06/2025 Left Ventricle: Left ventricle is mildly dilated. Normal wall thickness. Severely reduced left ventricular systolic function. EF by 2D Simpsons Biplane is 22%. Severe global hypokinesis present. Right Ventricle: Not well visualized. Right ventricle size is normal. Normal systolic function. Mitral Valve: Moderate (2+) regurgitation. Tricuspid Valve: Severely elevated RVSP. RVSP is 66 mmHg. Left Atrium: Left atrium is mildly dilated. Pericardium: Left pleural effusion. 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 I reviewed results with both patient and daughter (Anahy- via telephone) today. Will plan for left thoracentesis S/p left thoracentesis (-1000 ml) and right thoracentesis (-600). Pleural fluid studies indicate transudate. Culture negative. Cytology negative for malignant cells. Likely secondary to HFrEF. I spoke with cardiology team- Alejandro Queen APRN today. Plan to stop torsemide and start aggressive diuresis with IV lasix. Plan to re consult palliative care team as well to have goals of care discussion with patient and family per daughter request. Notified Bela Agustin APRN. On 2 liters NC. Wean FiO2 as patient tolerates. Keep SpO2 > or = 92% Encourage use of BiPAP at HS. Persistent hypercapnia noted on ABG despite use of BiPAP. Family would like for patient to have NIPPV at home. I spoke with Breana from [facility]. Likely will need to have bedside spirometry to assist with qualifying for PAP at home. Order placed. PT/OT recommending SNF GI recommendations noted. Plan for outpatient EGD/ colonoscopy once stable. Advance Directive: Full Code Discharge planning: Hospital follow-up has been scheduled with Dr. Garcia on 05/18/2025. Case discussed with nurse and patient Questions and concerns addressed. [1] atorvastatin, 20 mg, Oral, Nightly furosemide, 80 mg, IntraVENous, BID hydrALAZINE, 25 mg, Oral, TID metoprolol succinate XL, 25 mg, Oral, Daily pantoprazole, 40 mg, Oral, qAM AC polyethylene glycol (PEG) 3350, 17 g, Oral, Daily senna-docusate sodium, 2 tablet, Oral, BID spironolactone, 25 mg, Oral, Daily [2] PRN medications: acetaminophen OR acetaminophen, lidocaine, naloxone, ondansetron ODT OR ondansetron [3] Patient Active Problem List Diagnosis Acute congestive heart failure, unspecified heart failure type (HCC) Nutrition Assessment Type and Reason for Visit: Reassess Nutrition Recommendations/Plan: Encourage PO -continue diet as ordered with goal of 2 gm sodium Continue Ensure Plus daily as ordered Please continue to record meal and supplement intakes in RN Flowsheets RD to monitor labs, weight, skin status, PO intake -follow up weekly Malnutrition Assessment: Malnutrition Status: At risk for malnutrition (Comment) (monitor intake and ability to meet needs) per RD 04/09 Nutrition Assessment: 89 y.o. male admitted for increasing confusion and CHF exac, was treated on telemetry floor initially became lethargic and hypoxic and was transferred to ICU for NIV placement, treated with IV diuresis, pt also has bilateral pleural effusion and underwent bilateral thoracentesis with improvement in respiratory status, transferred to telemetry 04/10. also had anemia and received blood transfusion. Plan for outpatient EGD/ colonoscopy once stable. Pt reports tolerating meals -states daughter calling roomservice. Pt states he likes Ensure and has been drinking as ordered once daily. Estimated Daily Nutrient Needs: Energy Requirements Based On: Kcal/kg Weight Used for Energy Requirements: Carson Weight for Energy Calculation (kg): 70 kg Total Energy Requirements (kcals/day): 5875-1326 (25-30) Weight Used for Protein Requirements: Carson Weight in Kg Used for Protein Requirements: 70 kg Estimated Total Protein (g/day): 56-84 (.8-1.2) Estimated Daily Total Fluid (ml/day): per MD Nutrition Related Findings: trace bilateral lower extremity edema per Pulmonology. abdomen soft, bm 04/13. k+ 3.4, cl 93, c02 36, bun 37, cr 1.46, gfr 45.7, calcium 8.1, alb 2.2, wbc 12.7, hgb 7.8, hct 28.2. miralax, senokot, torsemide. wt's reviewed ?accuracy of bed scale wt today Wound Type: Skin Tears 04/13/25 0600 Bed scale 93.7 kg (206 lb 9.6 oz) 04/12/25 0903 Standing scale 91.4 kg (201 lb 6.4 oz) 04/10/25 0002 Bed scale 90.2 kg (198 lb 13.7 oz) 04/09/25 0026 Bed scale 95.1 kg (209 lb 10.5 oz) 04/06/25 1217 -- 90.7 kg (200 lb) 04/05/25 1608 Stated 90.7 kg (200 lb) Current Nutrition Therapies: Adult diet Regular; No Added Salt (3-4 gm) Current Oral Intake Average Meal Intake: 51-75%, 76-100% Average Supplements Intake: (pt reports drinking 100% Ensure) Anthropometric Measures: Height: 172.7 cm (5' 8) Current Body Weight: 95.1 kg (209 lb 10.5 oz) Weight Source: Stated Admission Body Weight: 90.7 kg (200 lb) (stated) Usual Body Weight: (none on file to review) Carson Body Weight (lbs) (Calculated): 154 lbs Carson Body Weight (Kg) (Calculated): 70 kg % Carson Body Weight (Calculated): 136.1 % BMI (kg/m2) (Calculated): 31.9 Weight Adjustment For: No Adjustment BMI Categories: Obese Class 1 (BMI 30.0-34.9) Nutrition Diagnosis: Altered nutrition-related lab values related to cardiac dysfunction as evidenced by lab values Predicted inadequate energy intake related to inadequate protein-energy intake as evidenced by poor intake prior to admission (per nursing nutrition screen) Nutrition Interventions: Nutrition Education/Counseling: Education not indicated Coordination of Nutrition Care: Continue to monitor while inpatient Plan of Care discussed with: Patient Goals: Previous Goal Met: Progressing toward Goal(s) Goals: PO intake 75% or greater, by next RD assessment Nutrition Monitoring and Evaluation: Behavioral-Environmental Outcomes: None Identified Food/Nutrient Intake Outcomes: Food and Nutrient Intake, Supplement Intake Physical Signs/Symptoms Outcomes: Biochemical Data, Chewing or Swallowing, GI Status, Nausea or Vomiting, Fluid Status or Edema, Hemodynamic Status, Meal Time Behavior, Nutrition Focused Physical Findings, Skin, Weight Discharge Planning: Continue current diet, Continue Oral Nutrition Supplement Kristin Duffy RD Contact: *[phone] or via Secure Chat Images from the original note were not included. OCCUPATIONAL THERAPY [facility] Treatment Note Name/MRN: Mary Charles ([id number]) Date of : 1935 Age: 89 y.o. Room/Bed: B2268/B2-268 B Visit #: 3 out of 7 Discharge Recommendation[facility] Equipment Needed: No Prior Level of Function Prior Level of ADL Function: Required Assist (for showering and pt wipes himself down with wash cloth IND) Prior Level of Mobility: Independent; Device: Rollator Prior Level of Transfers: Independent Assessment Pt tolerated session fair, continues to be limited by fatigue and weakness. Pt completed bed mobility at Mod A. Pt completed x2 STS and BSC transfer at Mod A, stand step transfer x2 at Min A. Pt required total A for pericare x1 incontinent urine and BM multiple times during session. Pt is progressing with POC but is still below baseline and is a high fall risk. Pt would benefit from continued OT to improve activity tolerance, balance, and strength needed for improved occupational performance. Pt is recommended for SNF at D/C Subjective Pt supine in bed, very pleasant and agreeable. Pain: Pt denies any current pain. Medical Precautions: No active isolations Proper PPE donned/doffed in accordance with facility standards. Fall Risk: Tompkins Fall Risk Score: 60 (High Risk) Precautions/Restrictions: Lines/Drains/Airways: tele, 1L O2 n.c., Family/Caregiver Present: none Objective ADLs Toileting: Dependent Pt with soiled draw pads/sheets/glide sheet as therapist entered room. Pt agreeable to sit on BSC to allow for changing of sheets and continue to void. Pt voided BM while seated on BSC, demo decreased functional reach and impaired standing balance for standing pericare. Pt required total A for completion of standing pericare at BSC. Pt then incontinent urine at EOB, soiling draw pads/sheets. Pt required total A for second trial of standing pericare, required Mod A for standing balance and BUE support on FWW. Bed Mobility Supine to sit: Mod Assist Sit to supine: Mod Assist HOB Elevated Use of bed rail(s) Pt completed supine to sit with HOB elevated, use of bed rails, and Mod A. Pt required increased time and use of bed features to complete. Pt denied dizziness. Transfers/Mobility Sit to stand: Mod Assist Stand to sit: Mod Assist, Pt completed x2 STS from EOB with use of FWW at heavy Mod A. Pt required use of momentum and increased time stand fully erect. Pt demo heavy reliance on FWW. Stand step: Min Assist, Pt completed stand step transfer from EOB to/from BSC with Fww at Min A. Pt demo heavy reliance on FWW and increased time to complete. Pt demo no true buckle, but yasmine knee bobbing noted. Bedside commode: Mod Assist, Pt completed BSC transfer with use of yasmine arm rests at Mod A. Pt required VC for BUE placement, demo good teachback. Pt slow to rise Sitting balance: SBA Standing balance: Min Assist Pt completed x3 stands with FWW at Min A-Mod A. Pt demo heavy reliance on FWW, and increased yasmine knee bobbing but no true buckle Device(s) used: Front wheeled walker Cognition - Safety judgement: decreased awareness of need for assistance - Insights: decreased awareness of deficits Exceptions Plan Continue acute OT per plan of care. Safety/Education Safety Safety Devices in place: All fall risk precautions in place, call light within reach, left in bed, gait belt, patient at risk for falls, nurse notified, and no alarms engaged upon entry Restraints: No Education Education Given To: patient Education Provided: OT Role, Plan of Care, ADL Adaptive Strategies, Transfer Training, Equipment, Fall Prevention Education, and Discharge Recommendations Education Method: Verbal, Demonstration, and Teach Back Barriers to Learning: None Education Outcome: Verbalized Understanding, Demonstrated Understanding, and Continued Education Needed AM-PAC AM-PAC Inpatient Daily Activity Raw Score: 14 ADL Inpatient CMS G-Code Modifier: CK Goals Patient Stated Goal: to return home. Encounter Problems Encounter Problems (Active) Dressing Upper Extremities Patient will complete upper body dressing SUP (Not Addressed) Start: 04/10/25 Expected End: 04/20/25 Dressings Lower Extremities Patient will dress lower body SBA (Not Addressed) Start: 04/10/25 Expected End: 04/20/25 Mobility Patient will demonstrate functional mobility with SUP and FWW (Not Addressed) Start: 04/10/25 Expected End: 04/20/25 Toileting Patient will complete toileting tasks at standard toilet with SBA. (Progressing) Start: 04/10/25 Expected End: 04/20/25 Transfers Patient will complete functional transfer with rolling walker with SBA in order to prepare for ambulation. (Slowly Progressing) Start: 04/10/25 Expected End: 04/20/25 Therapy Time Individual Co-treatment Time In 1338 Time Out 1418 Minutes 40 Timed Code Treatment Minutes: 40 Minutes (2 ADL, 1 Ther Act) PRATIMA Collier Cosigned by Jose Guadalupe Gongora OT at 04/14/2025 9:03 AM EDT [facility] Cardiology /Electrophysiology Progress Note HPI / Interval History: Mary Charles is a 89 y.o. year old male patient who has not received any medical care for a number of years presented to the hospital with progressive shortness of breath, hypoxia and edema. Chest x-ray with pulmonary edema and bilateral pleural effusions. High-sensitivity troponins 29-28, proBNP 8438, creatinine 1.44, hemoglobin 5.6 status post 2 units PRBC. Cardiology was consulted for new heart failure. He was seen in consult by Dr. Scherer and due to age, anemia, and frailty was recommended a conservative palliative approach. Additionally he has GI following for mural thickening involving the cecum and terminal ileum with concern for neoplasm or inflammation. GI plans for EGD colonoscopy when stabilized from a cardiac standpoint. 04/08/2025 he transferred to the ICU with acute hypercarbia requiring NIV and bilateral thoracentesis. He was changed to oral diuretic on 04/11/2025, however when he was seen 04/12/2025 he required additional IV Lasix due to chest x-ray with some pulmonary congestion. Wearing BiPAP per pulmonology. Currently weaning oxygen requirements now on 1 L nasal cannula, previously as high as 4 L nasal cannula. Today he reports feeling okay. He is a difficult historian and symptoms are vague. From what I gather he is a stand to pivot to bedside commode. He is not short of breath at rest. He still sounds decompensated on exam. We reviewed goals of heart failure and he states, I am 89 so not sure how much I actually want to do about it. Additionally on telemetry it looks like he is in atrial fibrillation, which I do not see previously documented. Given that he came in with hemoglobin of 5.6 and received multiple PRBC he is likely not a good candidate for oral anticoagulation. Assessment/Plan HF NYHA Class [] I [x] II [x] III [] IV []Unable to assess [] N/A Acute decompensated heart failure with reduced ejection fraction. ACC stage C. Suspect ischemic cardiomyopathy. - Transthoracic echocardiogram 04/06/2025 with LVEF 22%, severe global hypokinesis, 2+ TR, RVSP 66 mmHg, dilated IVC with a right atrial pressure 15 mmHg and a left pleural effusion. - Continues on p.o. torsemide 40 mg daily; he received 2 doses of IV Lasix 40 mg on 04/12/2025 given a wet chest x-ray 04/11/2025 - Start spironolactone 25 mg daily - Chest x-ray to reevaluate pleural effusions - Daily weights, daily BMP, heart failure care reviewed - Continues on Toprol XL 25 mg daily - Continues on hydralazine 25 mg 3 times daily; hold for SBP less than 110 - GDMT for heart failure is limited due to hypotension - No aspirin due to anemia; continues on atorvastatin 20 mg daily; palliative discussions for goals of care due to frailty, and anemia he is not felt to be a good candidate for invasive evaluation Bilateral pleural effusions. - 04/08/2025 status post bedside left thoracentesis with 1 L of fluid removed and right thoracentesis with 600 mL of fluid removed - X-ray completed 04/11/2025 shows moderate left pleural effusion and small right pleural effusion - Management per pulmonology; reviewed notes, and no plan for additional thoracentesis at this time due to improving respiratory status we will continue diuresis - Chest x-ray as above to reevaluate pleural effusions CKD. - Appears stage IIIb, but do not have labs to be on this admission for comparison. Creatinine has been between 1.4 and 1.7, with 1.4 the lowest creatinine being today - Daily BMP while diuresing Anemia. - Hemoglobin 5.6 status post multiple units of PRBCs - CBC 04/12/2025 shows hemoglobin 7.8, 1 week of hemoglobins greater than 7 - Per GI EGD and colonoscopy once able ? Abnormal telemetry. Sinus arrhythmia versus atrial fibrillation. - On admission 04/05/2025 his EKG showed sinus arrhythmia, however per telemetry I suspect atrial fibrillation. I have ordered a twelve-lead EKG for further clinical assessment. He is currently taking Toprol-XL 25 mg daily. His rate is 80, and he has no symptoms. Typically we would look at anticoagulation and consideration for cardioversion, however given a hemoglobin of 5.6 on admission he is likely not a good candidate for oral anticoagulation at least until further GI workup. At this time we will follow-up on the EKG Cardiology will continue to follow. Medications: Scheduled Meds[1] Infusion Medications: Continuous Meds[2] Physical Examination: Vitals: 04/13/25 0351 04/13/25 0600 04/13/25 0751 04/13/25 1121 BP: (!) 110/44 107/53 (!) 101/44 BP Location: Left arm Left arm Left arm Patient Position: Lying Lying Lying Pulse: 77 67 65 Resp: 16 20 20 Temp: 37 C (98.6 F) 36.8 C (98.3 F) 36.7 C (98.1 F) TempSrc: Temporal Temporal Temporal SpO2: 91% 96% 95% Weight: 206 lb 9.6 oz (93.7 kg) Height: Intake/Output Summary (Last 24 hours) at 04/13/2025 1420 Last data filed at 04/13/2025 0845 Gross per 24 hour Intake 300 ml Output -- Net 300 ml Patient Vitals for the past 168 hrs: Weight Weight Method 04/13/25 0600 206 lb 9.6 oz (93.7 kg) Bed scale 04/12/25 0903 201 lb 6.4 oz (91.4 kg) Standing scale 04/10/25 0002 198 lb 13.7 oz (90.2 kg) Bed scale 04/09/25 0026 209 lb 10.5 oz (95.1 kg) Bed scale Physical Exam Constitutional: NAD Psychiatric: Alert. Medical insight poor Neck: No JVD Respiratory: Lungs are decreased air movement, Rales Heart: Irregular; Nl S1 and S2, no murmur, no rub, gallop Abdomen: NABS; soft, non-tender, non-distended Extremities: Evidence of tenting suggesting chronic lower extremity edema, nonpitting LE edema Skin: Warm to touch and well perfused Laboratory Tests: TROPONIN I, CONVENTIONAL SENSITIVITY No results found for: CKTOTAL, CKMB, CKMBINDEX, TROPONINI TROPONIN I, HIGH SENSITIVITY Troponin HS Serial Baseline Date Value Ref Range Status 04/05/2025 29 <=35 ng/L Final Comment: In individuals presenting with symptoms > 2h, a baseline troponin <= 5 ng/L suggests acute cardiac injury is unlikely and further serial testing is generally not indicated. 04/05/2025 30 <=35 ng/L Final Comment: In individuals presenting with symptoms > 2h, a baseline troponin <= 5 ng/L suggests acute cardiac injury is unlikely and further serial testing is generally not indicated. 2h Troponin HS (Serial 2nd Troponin) Date Value Ref Range Status 04/05/2025 28 <=35 ng/L Final Comment: 2h troponin (2nd troponin) samples collected between 1h 40 min and 2h and 20 min of the baseline collection time can be utilized to interpret delta troponins as per [employer] algorithms. Samples collected outside this timeframe need to be interpreted clinically. Rising or falling troponin delta below 2 ng/L as compared to baseline value suggests that acute cardiac injury is unlikely. No results found for: TROPDELTBASE No results found for: TROPHS3 No results found for: TROPDELTSEC Recent Labs 04/11/25 05004/12/2532404/13/25213 NA 139 139 139 K 3.6 3.7 3.4* CL 94* 95* 93* CO2 35* 37* 36* BUN 36* 40* 37* CREATININE 1.55* 1.53* 1.46* Recent Labs 04/11/25 05004/12/2532404/13/2521304/13/25 0424 WBC 13.8* 12.0* 12.7* -- HGB 7.9* 7.4* 7.8* 11.3* HCT 28.9* 26.8* 28.2* -- MCV 83.0 83.8 83.9 -- PLT 313 272 276 -- No results for input(s): BNP in the last 72 hours. No results for input(s): TRIG, HDL, LDLCALC, CHOL in the last 72 hours. No results found for: LDLCHOLESTER Lab Results Component Value Date TSH 10.19 (H) 04/05/2025 EF BP Date Value Ref Range Status 04/06/2025 22 (A) 55 - 100 % Final 04/05/25 TRANSTHORACIC ECHOCARDIOGRAM (TTE) COMPLETE (CONTRAST/BUBBLE/3D PRN) 04/06/2025 12:42 PM (Final) Interpretation Summary Left Ventricle: Left ventricle is mildly dilated. Normal wall thickness. Severely reduced left ventricular systolic function. EF by 2D Simpsons Biplane is 22%. Severe global hypokinesis present. Right Ventricle: Not well visualized. Right ventricle size is normal. Normal systolic function. Mitral Valve: Moderate (2+) regurgitation. Tricuspid Valve: Severely elevated RVSP. RVSP is 66 mmHg. Left Atrium: Left atrium is mildly dilated. Pericardium: Left pleural effusion. Technically difficult study. Signed by: Thomas Hinton MD on 04/06/2025 12:42 PM Other reports reviewed: Cardiac Tests: ECG: Tracing reviewed. Telemetry findings reviewed: See HPI EF BP Date Value Ref Range Status 04/06/2025 22 (A) 55 - 100 % Final LOURDES Husain CNP Date Of Service 04/13/2025 [1] atorvastatin, 20 mg, Oral, Nightly hydrALAZINE, 25 mg, Oral, TID metoprolol succinate XL, 25 mg, Oral, Daily mupirocin, 1 Application, Nasal, BID pantoprazole, 40 mg, Oral, qAM AC polyethylene glycol (PEG) 3350, 17 g, Oral, Daily senna-docusate sodium, 2 tablet, Oral, BID torsemide, 40 mg, Oral, Daily [2] Hospitalist Progress Note 04/13/2025 Subjective: Admit Date: 04/05/2025 PCP: No primary care provider on file. Room#: B2-268/B2-268 B BRIEF HOSPITAL COURSE: Patient is an 89-year-old gentleman admitted for increasing confusion and CHF exacerbation, was treated on telemetry floor initially later become more lethargic and hypoxic and was transferred to ICU for NIV placement, treated with IV diuresis, patient also has bilateral pleural effusion and underwent bilateral thoracentesis with improvement in respiratory status, tolerated BiPAP, transferred out to the telemetry service back, also had anemia and received blood transfusion. Interval History: Comfortable No SOB In room air Adult diet Regular; No Added Salt (3-4 gm) 24HR INTAKE/OUTPUT: Intake/Output Summary (Last 24 hours) at 04/13/2025 1344 Last data filed at 04/13/2025 0845 Gross per 24 hour Intake 300 ml Output -- Net 300 ml Past Medical History: Medical History[1] LABS: CBC: Recent Labs 04/11/25 0501 04/12/25 0325 04/13/25 21304/13/25423 WBC 13.8* 12.0* 12.7* -- RBC 3.48* 3.20* 3.36* -- HGB 7.9* 7.4* 7.8* 11.3* HCT 28.9* 26.8* 28.2* -- MCV 83.0 83.8 83.9 -- RDW 24.2* 24.3* 25.0* -- PLT 313 272 276 -- BMP: Recent Labs 04/11/25 0501 04/12/2532404/13/25213 NA 139 139 139 K 3.6 3.7 3.4* CL 94* 95* 93* CO2 35* 37* 36* BUN 36* 40* 37* CREATININE 1.55* 1.53* 1.46* GLUCOSE 103 103 94 CALCIUM 8.1* 7.9* 8.1* ANIONGAP 10 7 10 LIVER PROFILE: Recent Labs 04/11/2550004/12/2532404/13/25213 AST 18 19 25 ALT <6 <6 <6 BILITOT 0.7 0.6 0.6 ALKPHOS 53 49 52 PROT 6.1* 5.6* 5.8* PT/INR: No results for input(s): PROTIME, INR in the last 72 hours. CARDIAC ENZYMES: No results for input(s): TROPONINI in the last 72 hours. Procalcitonin: No results found for: PROCAL COVID-19 PCR: No results for input(s): COVID19 in the last 72 hours. Objective: Vitals: BP (!) 101/44 (BP Location: Left arm, Patient Position: Lying) Pulse 65 Temp 36.7 C (98.1 F) (Temporal) Resp 20 Ht 5' 8 (1.727 m) Wt 206 lb 9.6 oz (93.7 kg) SpO2 95% BMI 31.41 kg/m Pulse Ox: SpO2 Av.3 % Min: 91 % Max: 97 % Supplemental O2: O2 Flow Rate (L/min): 1 L/min Physical Exam Constitutional: Appearance: Normal appearance. Cardiovascular: Rate and Rhythm: Normal rate and regular rhythm. Pulmonary: Effort: Pulmonary effort is normal. Breath sounds: Normal breath sounds. Abdominal: General: Bowel sounds are normal. Palpations: Abdomen is soft. Musculoskeletal: Right lower leg: No edema. Left lower leg: No edema. Neurological: General: No focal deficit present. Mental Status: He is alert and oriented to person, place, and time. Medications: Scheduled PRN Scheduled Meds[2] PRN Meds[3] Continuous Continuous Meds[4] Assessment Data: (CAT1) Reviewed 1 notes from different specialty or health system (each=1). (LOW: 2x CAT1 or independent historian MOD: 3x CAT1 or 1x CAT3 EXTENSIVE: 3x CAT1 and 1x CAT3) Acute, acute on chronic, unstable/uncontrolled chronic problems/diagnoses: Acute on chronic CHF exacerbation with severely reduced left ventricular ejection fraction Ischemic cardiomyopathy Acute on chronic hypoxic and hypercapnic respiratory failure Bilateral pleural effusion status postthoracentesis on April 09 1 L from the left, 600 mL from the right CKD stage IIIb Anemia of chronic disease status post PRBC transfusion -GI followed, workup deferred due to respiratory status Mural thickening of cecum , terminal ileum- colonoscopy as an outpatient. Hypomagnesemia Stable chronic problems affecting care, new non-acute diagnoses: Plan As a result of the above findings & factors, the following mgmt was pursued: - continue with torsemide - lab sin am - plan for DC to SNF - am labs, replace lytes prn - PT/OT/CM/SW - delirium precautions: increase activity - DVT prophylaxis: encourage ambulation Advance Directive: Full Code Anticipated Discharge Extended Emergency Contact Information Primary Emergency Contact: ANAHY CHARLES Mobile Relation: Daughter Preferred language: [employer] Utility Operator needed? No Albaro Hernández MD Division of Hospitalist Medicine [employer] [1] History reviewed. No pertinent past medical history. [2] atorvastatin, 20 mg, Oral, Nightly hydrALAZINE, 25 mg, Oral, TID metoprolol succinate XL, 25 mg, Oral, Daily mupirocin, 1 Application, Nasal, BID pantoprazole, 40 mg, Oral, qAM AC polyethylene glycol (PEG) 3350, 17 g, Oral, Daily senna-docusate sodium, 2 tablet, Oral, BID [Held by provider] torsemide, 40 mg, Oral, Daily [3] PRN medications: acetaminophen OR acetaminophen, lidocaine, naloxone, ondansetron ODT OR ondansetron [4] Images from the original note were not included. [facility] [place], Pulmonary Medicine [address] [place] [id number] Patient - Mary Charles, Age - 89 y.o. - 1935 Room Number - B2-268/B2-268 B Consulting - Albaro Hernández MD Primary Care Physician - No primary care provider on file. [id number] Date of Admission - 04/05/2025 3:55 PM Hospital Day - 8 Chief Complaint: Leg swelling and shortness of breath Pulmonary consult: ICU transfer, respiratory failure, CHF, needs NIV at discharge Subjective Hospital summary: Mary Charles is a 89 y.o. male who was admitted for shortness of breath and lower extremity edema. CT chest with pulmonary edema and bilateral pleural effusions. ICU consulted on 04/08 for somnolence and increased dyspnea. Repeat CXR showed worsening pleural effusions and pulmonary edema. ABG with acute on possible chronic hypercarbia. Patient was transferred to ICU for NIV. S/p bilateral thoracentesis. Respiratory status improved and patient was transferred out of ICU service on 04/10/25 Interval events: Patient awake resting comfortably in bed. Denied any shortness of breath, cough, chest pain, abdominal pain, nausea, vomiting, fever or chills. Supplemental oxygen weaned down to 1 L nasal cannula. Patient was able to wear BiPAP last night for 4 hours. States he did better with nasal pillow mask Objective Vitals: BP (!) 101/44 (BP Location: Left arm, Patient Position: Lying) Pulse 65 Temp 36.7 C (98.1 F) (Temporal) Resp 20 Ht 5' 8 (1.727 m) Wt 206 lb 9.6 oz (93.7 kg) SpO2 95% BMI 31.41 kg/m Pulse Ox: SpO2 Av.3 % Min: 91 % Max: 97 % Supplemental O2: O2 Flow Rate (L/min): 1 L/min I/O 24HR INTAKE/OUTPUT: Intake/Output Summary (Last 24 hours) at 04/13/2025 1229 Last data filed at 04/13/2025 0845 Gross per 24 hour Intake 300 ml Output -- Net 300 ml Exam Physical Exam Vitals and nursing note reviewed. Constitutional: General: He is not in acute distress. Appearance: He is obese. HENT: Head: Normocephalic and atraumatic. Right Ear: External ear normal. Left Ear: External ear normal. Nose: Nose normal. No congestion or rhinorrhea. Cardiovascular: Rate and Rhythm: Normal rate and regular rhythm. Comments: Trace bilateral lower extremity edema Pulmonary: Effort: No respiratory distress. Breath sounds: No stridor. No wheezing, rhonchi or rales. Musculoskeletal: Right lower leg: Edema present. Left lower leg: Edema present. Neurological: Mental Status: He is alert and oriented to person, place, and time. Psychiatric: Mood and Affect: Mood normal. Behavior: Behavior normal. Medications Current Medications Scheduled Meds[1] PRN Mediations PRN Meds[2] Labs CBC Results from last 7 days Lab Units 04/13/2542304/13/25 0214 WBC AUTO 10*3/uL -- 12.7* HEMOGLOBIN g/dL -- 7.8* HEMOGLOBIN BG g/dl 11.3* -- HEMATOCRIT % -- 28.2* PLATELETS 10*3/uL -- 276 BMP: Results from last 7 days Lab Units 04/13/25 0214 04/12/25 0325 04/11/25 0501 SODIUM mmol/L 139 139 139 POTASSIUM mmol/L 3.4* 3.7 3.6 CHLORIDE mmol/L 93* 95* 94* CO2 mmol/L 36* 37* 35* BUN mg/dL 37* 40* 36* CREATININE mg/dL 1.46* 1.53* 1.55* GLUCOSE mg/dL 94 103 103 CALCIUM mg/dL 8.1* 7.9* 8.1* ABG: Results from last 7 days Lab Units 04/13/25 0424 04/08/25205204/08/25 1654 PH ART 7.426 7.332* 7.296* PCO2 ART mm Hg 59.2* 75.1* 80.1* PO2 ART mm Hg 79.2* 104.0 92.0 HCO3 ART mmol/L 38.1* 38.9* 38.2* O2 SAT ART % 95.1* 97.0 96.1* BASE EXC ART mmol/L 11.7* 11.2* 9.9* SOURCE OF OXYGEN Nasal Cannula (LPM) Non-Invasive Ventilator Nasal Cannula (LPM) LIVER PROFILE Results from last 7 days Lab Units 04/13/25 0214 04/12/25 0325 04/11/25 0501 ALK PHOS U/L 52 49 53 BILIRUBIN TOTAL mg/dL 0.6 0.6 0.7 PROTEIN TOTAL g/dL 5.8* 5.6* 6.1* ALT U/L <6 <6 <6 AST U/L 25 19 18 INR PTT No results found for: PTT Cultures Right pleural fluid Culture: NGTD Cytology: Pending Left pleural fluid Culture: NGTD Cytology: Pending Radiology Chest x-ray 04/11/2025 IMPRESSION: Cardiomegaly with mild pulmonary vascular congestion. Bilateral pleural effusions, small on the right and moderate sized on the left. No new areas of consolidation CT chest 04/06/25: Findings: The aorta and main pulmonary artery are grossly of normal caliber. The right pulmonary artery measures approximately 3.7 cm in diameter. The ascending thoracic aorta measures 3.7 cm in diameter. Mild calcification of the aortic arch. Extensive diffuse coronary artery calcification present with question coronary stents. Heart size is enlarged. There is no significant adenopathy demonstrated. Small subcentimeter mediastinal lymph nodes. Moderate to large bilateral pleural effusions with bilateral infiltrates and/or compressive atelectasis of the lungs. Presumed component of pulmonary edema with some coarsening of the interstitium. Dense calcification along the origin of the celiac artery, incompletely covered. Moderate to large osteophytes along the right anterior thoracic spine at multiple levels. IMPRESSION: Impression: Findings thought to most likely represent CHF. A superimposed infectious etiology is not excluded. The right pulmonary artery appears enlarged. Echocardiogram 04/06/2025 Left Ventricle: Left ventricle is mildly dilated. Normal wall thickness. Severely reduced left ventricular systolic function. EF by 2D Simpsons Biplane is 22%. Severe global hypokinesis present. Right Ventricle: Not well visualized. Right ventricle size is normal. Normal systolic function. Mitral Valve: Moderate (2+) regurgitation. Tricuspid Valve: Severely elevated RVSP. RVSP is 66 mmHg. Left Atrium: Left atrium is mildly dilated. Pericardium: Left pleural effusion. 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 Supplemental oxygen weaned down to 1 L nasal cannula. Continue wean FiO2 as patient tolerates. Maintain SpO2 greater equal to 92% Encourage use of PAP at at bedtime. Given persistent hypercapnia on ABG patient would benefit from NIV for going home. Order placed for BiPAP on GLORY Patient suffers from acute on chronic hypoxic and hypercarbic respiratory failure. Alternative modes of ventilation, such as CPAP and BiPAP, have been tried and failed as evidenced by continued hypercapnia on ABG. Patient requires NIV, with volume targeted modes that BiPAP/ CPAP cannot provided in order to prevent elevated CO2 levels, altered mental status and possible . Patient is at increased risk of continued exacerbations and hospital readmissions without NIV therapy. ABG 7.426/59.2/79.2 after using BiPAP Overnight pulse oximetry study completed on BiPAP with 2 L bleed. SpO2 less than 89% for greater than 1 hour. Lowest SpO2 documented 80% S/p left thoracentesis (-1000 ml) and right thoracentesis (-600). Pleural fluid studies indicate transudate and likely related to HFrEF. Repeat CXR with bilateral pleural effusions. No plan for additional thoracentesis at this time as respiratory status is stable. Continue diuresis as per cardiology recommendations PT/OT recommending SNF GI recommendations noted. Plan for outpatient EGD/ colonoscopy once stable. Hgb 7.4 today Palliative care following. Patient and daughter would like to continue with aggressive treatment at this time. Remains full code Will continue to follow Advance Directive: Full Code Discharge planning: Okay to discharge to SNF from pulmonary standpoint once arrangements have been made. Hospital follow-up has been scheduled with Dr. Garcia on 05/18/2025. Plan of care was discussed with daughter Anahy Charles via telephone today Case discussed with nurse and patient Questions and concerns addressed. I have discussed the patient's case and plan of care with my collaborating physician Dr. Armstrong Portions of the information within this encounter were entered using an electronic dictation system. [1] atorvastatin, 20 mg, Oral, Nightly hydrALAZINE, 25 mg, Oral, TID metoprolol succinate XL, 25 mg, Oral, Daily mupirocin, 1 Application, Nasal, BID pantoprazole, 40 mg, Oral, qAM AC polyethylene glycol (PEG) 3350, 17 g, Oral, Daily senna-docusate sodium, 2 tablet, Oral, BID [Held by provider] torsemide, 40 mg, Oral, Daily [2] PRN medications: acetaminophen OR acetaminophen, lidocaine, naloxone, ondansetron ODT OR ondansetron [3] Patient Active Problem List Diagnosis Acute congestive heart failure, unspecified heart failure type (HCC) Images from the original note were not included. OCCUPATIONAL THERAPY [facility] Treatment Note Name/MRN: Mary Charles ([id number]) Date of : 1935 Age: 89 y.o. Room[facility]Bed: [facility] Visit #: 2 out of 7 visits [facility]charge [facility]ation[facility] Equipment Needed: No Prior Level of Function Prior Level of ADL Function: Required Assist (for showering and pt wipes himself down with wash cloth IND) Prior Level of Mobility: Independent; Device: Rollator Prior Level of Transfers: Independent Assessment Pt agreeable to therapy at first attempt ([id number]) but states that he first needs to have a BM in the bed and then get cleaned up. ANDUJAR offered a BSC and pt states that he was told to just go in the bed and then they would clean him up. Could not be encouraged for the BSC. ANDUJAR getting ready to clean pt up and pt states to wait as he is still going. ANDUJAR left with the call light and returned an hour later. Pt states he forgot to ring the call light as he had visitors. Pt is mod assist to completely roll on his side and total assist for kehinde-care after a small BM. Pt states he has to urinate and so he urinated in the bed and states he has no control. States I'm just doing what they told me to do. Pt able to complete kehinde-care while on his back on in the bed. Pt states this is the first he has done this. Pt needs encouragement for increased independence with self care tasks. Is set up assist for combing his hair. Pt is recommended for SNF at discharge. Subjective Pt agreeable for therapy but first needs cleaned up. Much encouragement needed for increased independence and increased participation with self care tasks. Pain: Pt denies any current pain. Medical Precautions: No active isolations Proper PPE donned/doffed in accordance with facility standards. Fall Risk: [place] Fall Risk Score: 60 (High Risk) Precautions/Restrictions: Lines/Drains/Airways: ICU tele, 2L O2 n.c., external catheter Family/Caregiver Present: none and brother and sister in law had rafa there at first attempt. Objective ADLs Toileting: Dependent Grooming: SBA UE Dressing: Min Assist ANDUJAR offered a BSC and pt states that he was told to just go in the bed and then they would clean him up. Could not be encouraged for the BSC. Pt used the brief in the bed for BM. Pt is mod assist to completely roll on his side and total assist for kehinde-care after a small BM. Pt states he has to urinate and so he urinated in the bed and states he has no control. States I'm just doing what they told me to do. Pt able to complete kehinde-care while on his back on in the bed. Pt states this is the first he has done this. Pt needs encouragement for increased independence with self care tasks. Is set up assist for combing his hair. Changed gown with min assist. Pt able to sit upright in the bed and ANDUJAR washed his back. Bed Mobility Rolling to right: Mod Assist Rolling to left: Mod Assist Scooting: Max Assist, x2 Person Assist Pt used the side rails for pulling himself up and requests that all 4 bed rails be up. Transfers/Mobility Not attempted this date. Device(s) used: NA Cognition WFL Plan Continue acute OT per plan of care. Safety/Education Safety Safety Devices in place: All fall risk precautions in place, call light within reach, and left in bed Restraints: N/A Education Education Given To: patient Education Provided: OT Role, Plan of Care, ADL Adaptive Strategies, Fall Prevention Education, and Benefits of Increasing Activity Education Method: Verbal, Demonstration, and Teach Back Barriers to Learning: None Education Outcome: Verbalized Understanding, Demonstrated Understanding, and Continued Education Needed AM-PAC AM-PAC Inpatient Daily Activity Raw Score: 16 ADL Inpatient CMS G-Code Modifier: CK Goals Patient Stated Goal: to return home. Encounter Problems Encounter Problems (Active) Dressing Upper Extremities Patient will complete upper body dressing SUP (Slowly Progressing) Start: 04/10/25 Expected End: 04/20/25 Dressings Lower Extremities Patient will dress lower body SBA (Not Addressed) Start: 04/10/25 Expected End: 04/20/25 Mobility Patient will demonstrate functional mobility with SUP and FWW (Not Addressed) Start: 04/10/25 Expected End: 04/20/25 Toileting Patient will complete toileting tasks at standard toilet with SBA. (Not Progressing) Start: 04/10/25 Expected End: 04/20/25 Transfers Patient will complete functional transfer with rolling walker with SBA in order to prepare for ambulation. (Not Addressed) Start: 04/10/25 Expected End: 04/20/25 Therapy Time Individual Co-treatment Time In 1339 Time Out 1405 Minutes 26 Timed Code Treatment Minutes: 25 Minutes (adl and ther act) PRATIMA Boone Cosigned by Jose Guadalupe Gongora OT at 04/14/2025 9:03 AM EDT Images from the original note were not included. Palliative Care Progress Note Chief Complaint: Mary Charles is a 89 y.o. male with chief complaint of shortness of breath. Palliative Care is signing off, please re-consult if needed. (add SIGNOFFTRANSITION dotphrase below) Assessment/Plan Goals of care Mary Charles retains capacity for medical decision-making -legal surrogate decision maker is daughter, Anahy Charles ( ) -Remains full code at this time per conversation with daughter whom has spoken with her father about code status and continues to wish for full code measures and workup. AE CHFrEF -Cardiology following. -TTE revealing EF 22%, severe LV systolic dysfunction and moderate MR and severely elevated RVSP -Noted that he is not a candidate for other aggressive management 2/2 frailty. -Cardiology managing medications. -Appears that he really would be appropriate for hospice, however patient states he would like to continue workup and treatment as it stands now, daughter also in agreement that she would like to continue aggressive workup and treatment as well. Dyspnea Acute hypercapnic respiratory failure -ongoing. 2/2 above AE CHF/newly diagnosed CHF. -NC in place now, NIV required overnight. -Increased CO2 which was likely reason for agitation/somnolence previously. Appears mentation is improving now. -s/p thoracentesis this morning for 1L-->cultures sent. -Patient states he does not wear O2 at home. -Monitor O2 sats. -Home O2 evaluation?? -Obesity hypoventilation syndrome?? Hx LEONA?? -Monitor. Acute anemia Hematochezia -Low Hgb-->5.5 on arrival, received PRBC. -Endorses dark stools at times. -Monitor H/H -Monitor labs. -GI following, continuing workup pending stability from cardiac standpoint-->recommendations EGD/colonoscopy. -CT findings of mural thickening of cecum and TI concerning for malignancy vs. Inflammation. -Monitor. Debility -PT/OT on board. -Patient states that he stood at bedside today with therapy. -Lives alone, may need more help at home vs. Facility placement. -Monitor. Depression Life change -Noted that about a year ago. -Patient lives alone now. Appears that he is depressed based on changes recorded in H/P -Lack of interest in doing things, appetite changes, change in health status-->??not taking care of himself. -Consider medication for mood? -Park Landscape Architect support requested. -Monitor. Hx CKD III -CrCl 33.6 mL/min. -Creatinine 1.53 BUN 40 as of this AM -As above has not seen physician/provider in several years. -Monitor fluid status, renally dose medications. -Monitor I/O -Avoid nephrotoxic medications. -??risk for cardiorenal syndrome. Monitor. Palliative Care Encounter -Code Status: Full Code - will continue to follow for ongoing monitoring of progression of Dyspnea as well as for appropriateness for hospice care due to CHF and Respiratory Failure Discharge planning: Not ready for discharge due to ongoing goals of care discussion Patient meets criteria for general inpatient hospice care: No Palliative Care IDT members involved: None Discussed the plan of care with the other interdisciplinary team (IDT) members of the Palliative Care and Hospice teams and Patient. Subjective: Subjective/Events Mary Charles is a 89 y.o. male seen today. In bed. Awake and alert, states he feels well. NAEON. Discussion with daughter on the phone--> -Medical update. -Continued discussion around goals of care, plan continues to be remain full code and plan for SNF placement. -Daughter is open to having palliative care team to follow in outpatient setting for continued support. -Discussed with her that we will be signing off in the hospital setting and will send referral to biosolids management technicianproject coordinator for palliative SNF referral. -Questions answered, concerns addressed, emotional support provided. Palliative Care Assessments: Goals of care: Continue Current Management Advanced Directives: No Known Advance Directive Functional Assessment: PPS 50% mainly sit/lie; can't do any work/extensive disease; considerable assistance; normal or reduced intake; full LOC or confusion Prognosis: depends upon goals of care Spiritual Assessment: No spiritual distress identified Bereavement and Grief: Social Work and Spiritual Needs Requested PDMP/OARRS Reviewed: No Report Available ROS: See palliative care ROS/ESAS below; All other systems were reviewed and are negative. [place] Symptom Assessment Score [place] Score Pain Score (if non-verbal, add .FLACC below) 0 Tiredness Score 0 Nausea Score 0 Depression Score 0 Anxiety Score 0 Drowsiness Score 0 Anorexia Score (0= eating well, 10= not eating) 4 Wellbeing Score (10= worst sense of well-being) 5 Constipation 0 Dyspnea Score (0= no shortness of breath) 0 Family Meeting: Participants: patient and child Family meeting was held to discuss:Goals of Care Objective: BP 100/51 Pulse 62 Temp 37.1 C (98.7 F) (Temporal) Resp 16 Ht 5' 8 (1.727 m) Wt 201 lb 6.4 oz (91.4 kg) SpO2 96% BMI 30.62 kg/m Physical Exam Vitals and nursing note reviewed. Constitutional: General: He is not in acute distress. Appearance: He is obese. He is ill-appearing. HENT: Head: Normocephalic. Nose: Nose normal. Mouth/Throat: Mouth: Mucous membranes are moist. Pharynx: Oropharynx is clear. Eyes: General: Right eye: No discharge. Left eye: No discharge. Extraocular Movements: Extraocular movements intact. Pupils: Pupils are equal, round, and reactive to light. Cardiovascular: Rate and Rhythm: Normal rate. Pulses: Normal pulses. Heart sounds: No murmur heard. Pulmonary: Effort: Pulmonary effort is normal. No respiratory distress. Breath sounds: Normal breath sounds. No wheezing. Abdominal: General: Bowel sounds are normal. Palpations: Abdomen is soft. Musculoskeletal: Cervical back: Normal range of motion. Right lower leg: No edema. Left lower leg: No edema. Skin: General: Skin is warm and dry. Capillary Refill: Capillary refill takes less than 2 seconds. Coloration: Skin is pale. Neurological: Mental Status: He is alert and oriented to person, place, and time. Mental status is at baseline. Psychiatric: Mood and Affect: Mood normal. Behavior: Behavior normal. Thought Content: Thought content normal. Judgment: Judgment normal. Medication information: 24-hour PRN meds received: none in 24 hours. Results/Verification of Data Review Objective data reviewed (must include dates reviewed for labs, imaging reports and other specialty notes): BMP, CBC 04/12/25 Data in Support of Terminal Illness: Is patient hospice appropriate? Eligible, but not consistent with GOC at this time LOURDES Ordaz CNP Hospitalist Progress Note 04/12/2025 [phone]: Please secure chat me for patient care issues. [phone]: Please secure chat [facility] Hospitalist for any issues. Subjective: Admit Date: 04/05/2025 PCP: No primary care provider on file. Room#: B2-268/B2268 B Brief History: Patient is an 89-year-old gentleman admitted for increasing confusion and CHF exacerbation, was treated on telemetry floor initially later become more lethargic and hypoxic and was transferred to ICU for NIV placement, treated with IV diuresis, patient also has bilateral pleural effusion and underwent bilateral thoracentesis with improvement in respiratory status, tolerated BiPAP, transferred out to the telemetry service back, also had anemia and received blood transfusion. Consults : Critical care, pulmonology, cardiology PT and OT Chief Complaint : Says breathing is okay today, feels weak, denies any chest pain On O2 supplementation via nasal cannula at 4 L/min-O2 sats 96% Adult diet Regular; No Added Salt (3-4 gm) @[id number]@ 24HR INTAKE/OUTPUT: Intake/Output Summary (Last 24 hours) at 04/12/2025 1059 Last data filed at 04/12/2025 0917 Gross per 24 hour Intake 240 ml Output 650 ml Net -410 ml Past Medical History: Medical History[1] LABS: CBC: Recent Labs 04/10/2544204/11/25 0501 04/12/25 0325 WBC 12.4* 13.8* 12.0* RBC 3.18* 3.48* 3.20* HGB 7.2* 7.9* 7.4* HCT 26.1* 28.9* 26.8* MCV 82.1 83.0 83.8 RDW 22.9* 24.2* 24.3* PLT 294 313 272 BMP: Recent Labs 04/10/2544204/11/25 0501 04/12/25 032 NA 142 139 139 K 3.2* 3.6 3.7 CL 95* 94* 95* CO2 35* 35* 37* BUN 32* 36* 40* CREATININE 1.65* 1.55* 1.53* GLUCOSE 98 103 103 CALCIUM 8.0* 8.1* 7.9* ANIONGAP 12 10 7 LIVER PROFILE: Recent Labs 04/10/2544204/11/25 0501 04/12/25 0325 AST 16 18 19 ALT <6 <6 <6 BILITOT 0.6 0.7 0.6 ALKPHOS 50 53 49 PROT 5.5* 6.1* 5.6* PT/INR: No results for input(s): PROTIME, INR in the last 72 hours. CARDIAC ENZYMES: No results for input(s): TROPONINI in the last 72 hours. Procalcitonin: No results found for: PROCAL COVID-19 PCR: No results for input(s): COVID19 in the last 72 hours. Objective: Vitals: BP 100/51 Pulse 62 Temp 37.1 C (98.7 F) (Temporal) Resp 16 Ht 5' 8 (1.727 m) Wt 201 lb 6.4 oz (91.4 kg) SpO2 96% BMI 30.62 kg/m Pulse Ox: SpO2 Av.8 % Min: 93 % Max: 97 % Physical Exam Constitutional: Appearance: He is obese. He is ill-appearing. Cardiovascular: Rate and Rhythm: Regular rhythm. Tachycardia present. Pulses: Normal pulses. Heart sounds: Normal heart sounds, S1 normal and S2 normal. Abdominal: General: Bowel sounds are normal. Palpations: Abdomen is soft. Musculoskeletal: Right lower le+ Pitting Edema present. Left lower le+ Pitting Edema present. Skin: Comments: Chronic skin changes of the legs bilaterally Medications: Continuous Meds[2] Scheduled Meds[3] Assessment Acute Problems : Acute on chronic CHF exacerbation with severely reduced left ventricular ejection fraction Ischemic cardiomyopathy Acute on chronic hypoxic and hypercapnic respiratory failure Bilateral pleural effusion status postthoracentesis on April 09 1 L from the left, 600 mL from the right CKD stage IIIb Anemia of chronic disease status post PRBC transfusion -GI followed, workup deferred due to respiratory status Hypomagnesemia Stable chronic problems affecting care, new non-acute diagnoses: Medical Decision Making 04/11-moved out of the ICU, IV diuresis switched to p.o. torsemide 40 mg daily, monitor daily weights and intake and output, BiPAP use at night encouraged, PT and OT assessments when able Possible outpatient GI workup for anemia 04/12 -monitor H&H, 7.4/26.8, monitor renal function creatinine 1.53, on O2 supplementation, on IV furosemide, low-salt diet, and IV use encouraged hypercapnia improved after ICU stay Appreciate palliative and pulmonary care input PT and OT assessments recommended [facility] facility -am labs, replace lytes prn -increase activity -DVT prophylaxis: [] Lovenox [] Heparin [x] SCDs [x] Encourage ambulation [] Already on Anticoagulation - GI prophylaxis : Anticipated Discharge - Date -April 14 or - Location -[facility] facility - Pending the following -clinical improvement, specialist clearance Total time spent (which include face to face and non face to face encounters) : 53 minutes Toxic drug monitoring/narrow therapeutic index drug monitoring : # Drug name : # Route administered : # Method of monitoring : Extended Emergency Contact Information Primary Emergency Contact: ANAHY CHARLES Mobile Relation: Daughter Preferred language: [place] Mine Utility Operator needed? No Westley Martinez MD Division of Hospitalist Medicine Acute care [facility] PAGER: Epic chat [1] History reviewed. No pertinent past medical history. [2] [3] atorvastatin, 20 mg, Oral, Nightly furosemide, 40 mg, IntraVENous, BID hydrALAZINE, 25 mg, Oral, TID metoprolol succinate XL, 25 mg, Oral, Daily mupirocin, 1 Application, Nasal, BID pantoprazole, 40 mg, Oral, qAM AC polyethylene glycol (PEG) 3350, 17 g, Oral, Daily senna-docusate sodium, 2 tablet, Oral, BID [Held by provider] torsemide, 40 mg, Oral, Daily Images from the original note were not included. PHYSICAL THERAPY [facility] Treatment Note Name/MRN: Mary Charles ([id number]) Date of : 1935 Age: 89 y.o. Room/Bed: [facility] Visit #: 3 out of 5 visits [facility]charge Recommendation[facility] Equipment Needed: No Assessment Pt making small gains towards goals established with less assist needed to complete bed mobility and transfers but still limited with functional mobility. Pt was able to perform exercises in standing but noted decreased balance and stability present. Pt's respiratory status seems to be maintained with O2. Pt will continue to benefit from current recommendation to further improve strength, balance, and activity tolerance for mobility Subjective Pt agreeable to therapy. Observation Depends on, PIV intact Vitals Vitals Heart Rate: 62 SpO2: 96 % Heart Rate Source: Monitor BP: 100/51 MAP (mmHg): 67 SpO2 remained 93% during activity Pain: Pt denies any current pain. Medical Precautions: No active isolations Proper PPE donned/doffed in accordance with facility standards. Fall Risk: Tompkins Fall Risk Score: 60 (High Risk) Precautions/Restrictions: Lines/Drains/Airways:, 4 L O2 n.c., Overall Cognitive Status: WFL Overall Orientation Status: Oriented x4 Family/Caregiver Present: none Objective Bed Mobility Supine to sit: Min Assist Sit to supine: Min Assist Pt demonstrated ability to initiate and complete without usage of bed rail and time given to complete with light assist to guide trunk. Pt returns to supine with assist to elevate LE's onto bed and time given for pt to reposition self in midline with assist to maneuver trunk. Pt reports he sleeps in a lift chair at home Transfers/Mobility Sit to stand: Min Assist Stand to sit: Min Assist Pt requires time to prepare self with each attempt and relies on momentum to assist with elevation and MIN A provided to stabilize pt during transition. When sitting, pt does not demonstrate proper hand placement and light assist provided for eccentric control. Pt was able to demonstrate ability to side step with FWW with MIN A for support with short steps taken and slight instability at knees noted for stance. Device(s) used: Front wheeled walker Balance During Session: Posture: fair Standing - Static: Min Assist Standing - Dynamic: Min Assist Pt demonstrated ability to maintain stance while performing LE exercises with support of walker needed and light support from therapist to maintain stance with noted flexing of trunk as well as buckling of knees. Exercises Exercises Hamstring Sets: 1 set / 10 reps in standing B LE individually with B UE support Hip Flexion: 1 set / 10 reps in standing B LE individually with B UE support Hip Abduction: 1 set / 10 reps in standing B LE individually with B UE support Comments: Exercises performed to improve activity tolerance, strength and balance for mobility with good teach back but increased time needed to perform and support needed for balance and stability due to flexing posture as pt performs and knee instability present Plan Continue acute PT per plan of care. Safety/Education Safety Safety Devices in place: All fall risk precautions in place, call light within reach, left in bed, gait belt, patient at risk for falls, and nurse notified Restraints: No Education Education Given To: patient Education Provided: PT Role, PT Goals, Gait Training, Plan of Care, Home Exercise Program, Transfer Training, Equipment, and Discharge Recommendations Education Method: Verbal, Demonstration, and Teach Back Barriers to Learning: None Education Outcome: Continued Education Needed Outcome Measures AM-PAC AM-PAC Inpatient Mobility Raw Score (No Stairs) : 13 JH-HLM JH-HLM Score: Static standing (1 or more minutes) Goals Patient Stated Goal: pt did not state Encounter Problems Encounter Problems (Active) Balance Patient will maintain dynamic standing balance for 3-5 minutes with CGA in order to demonstrate decreased risk of falling. (Progressing) Start: 04/07/25 Expected End: 04/14/25 Exercise Patient will complete lower extremity exercises for 1-2 sets / 5-10 reps in order to improve strength and activity tolerance for mobility. (Progressing) Start: 04/07/25 Expected End: 04/14/25 Mobility Patient will ambulate 25 feet with CGA and least restrictive device in order to improve safety and independence with mobility. (Not Addressed) Start: 04/07/25 Expected End: 04/14/25 Transfers Patient will perform bed mobility with CGA in order to improve independence and prepare for out of bed mobility. (Progressing) Start: 04/07/25 Expected End: 04/14/25 Patient will complete functional transfer with least restrictive device with CGA in order to prepare for ambulation. (Progressing) Start: 04/07/25 Expected End: 04/14/25 Therapy Time Individual Co-treatment Time In 0918 Time Out 0951 Minutes 33 Timed Code Treatment Minutes: 25 Minutes (ther ex and ther act) Katina Banegas PTA Cosigned by Lucrecia Cabral PT at 04/12/2025 10:47 AM EDT [facility] Cardiology /Electrophysiology Progress Note HPI / Interval History: Mary Charles has no prior cardiac history (has not seen a physician for many years) who presented to [facility] with worsening SOB, hypoxia and edema. CXR with pulmonary edema. Hs-trop 29-28, pro-BNP 8438, creatinine 1.44, Hgb 5.6. He received 2 units pRBC and Hgb 7.4 this AM. He was seen by Dr. Scherer in consultation and TTE showed EF 22% with global hypokineses and 2+ MR. He is being diuresed with IV lasix and was started on GDMT. Due to anemia and frailty, he is recommended for medical management. He was also noted to have mural thickening involving the cecum and terminal ileum with concern for neoplasm or inflammation. GI is following and is recommending EGD and colonoscopy when stable from a cardiac standpoint. The evening of 04/08/2025, he was transferred to ICU due to increased somnolence, shortness of breath and increased work of breathing. Repeat chest x-ray showed worsening pleural effusions and pulmonary edema. ABG with acute hypercarbia he was transferred to ICU for NIV. He had bedside right thoracentesis with 600 mL of fluid removed and left thoracentesis with 1 L of fluid removed. He is recommended for chronic nocturnal NIV on discharge. He was changed to po torsemide 04/11/2025. Today, he states his SOB and edema are unchanged. He denies CP, PND, orthopnea, palpitations, syncope. 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, Stage C, Class II, EF 22% per TTE 03/2025 -daily weight not documented this AM -I&O -1.2 L (if accurate) -Heart failure symptoms and volume status improving - CXR stable compared to post thoracentesis CXR, but still with some pulmonary congestion - hold po torsemide today and give lasix 40 mg IV BID today and re-evaluate in AM - continue Toprol 25 mg po daily - continue hydralazine 25 mg po TID - unable to titrate further GDMT 2/2 low BP - no ASA 2/2 anemia - continue atorvastatin 20 mg po daily -not a good candidate for invasive work up at this point due to frailty, anemia -palliative care on board to continue discussions of goals of care, currently a full code Bilateral pleural effusion -Bedside thoracentesis 04/09/2025 with 1 L removed from the left and 600 mL removed from the right -Continue to monitor -repeat CXR with pulmonary congestion, will give additional IV lasix today CKD - creatinine 1.46 on admission, 1.63 > 1.78 > 1.53 >1.65> 1.55>1.53 - Continue to monitor Anemia - Hgb 5.6 on admission and 7.8 after 2 uPRBc >7.2 today - continue venofer - per primary team -no current plans for EGD/Colonoscopy until more stable Mural thickening cecum and terminal ileum per CT scan - GI following - they recommend EGD and colonoscopy once cardiac status improved Hypomagnesemia, resolved - Received 2 GM Mg Sulfate 04/11/25 Dispo: continue to follow Medications: atorvastatin, 20 mg, Oral, Nightly furosemide, 40 mg, IntraVENous, BID hydrALAZINE, 25 mg, Oral, TID metoprolol succinate XL, 25 mg, Oral, Daily mupirocin, 1 Application, Nasal, BID pantoprazole, 40 mg, Oral, qAM AC polyethylene glycol (PEG) 3350, 17 g, Oral, Daily senna-docusate sodium, 2 tablet, Oral, BID [Held by provider] torsemide, 40 mg, Oral, Daily Infusion Medications: Continuous Meds[1] Physical Examination: Vitals: 04/11/25 2322 04/12/25 0323 04/12/25 0751 04/12/25 0812 BP: 91/51 100/56 112/51 BP Location: Right arm Right arm Left arm Patient Position: Sitting Sitting Lying Pulse: 62 61 68 63 Resp: 18 16 Temp: 36.1 C (97 F) 36.6 C (97.9 F) 37.1 C (98.7 F) TempSrc: Temporal Temporal Temporal SpO2: 96% 94% 93% Weight: Height: Intake/Output Summary (Last 24 hours) at 04/12/2025 0824 Last data filed at 04/11/2025 2100 Gross per 24 hour Intake -- Output 650 ml Net -650 ml Patient Vitals for the past 168 hrs: Weight Weight Method 04/10/25 0002 198 lb 13.7 oz (90.2 kg) Bed scale 04/09/25 0026 209 lb 10.5 oz (95.1 kg) Bed scale 04/06/25 1217 200 lb (90.7 kg) -- 04/05/25 1608 200 lb (90.7 kg) Stated Physical Exam Vitals reviewed. Constitutional: Appearance: Normal appearance. HENT: Head: Normocephalic and atraumatic. Mouth/Throat: Mouth: Mucous membranes are moist. Pharynx: Oropharynx is clear. Neck: Vascular: No JVD. Cardiovascular: Rate and Rhythm: Normal rate and regular rhythm. Heart sounds: Normal heart sounds. Pulmonary: Effort: Pulmonary effort is normal. Breath sounds: Decreased breath sounds present. Abdominal: General: Abdomen is protuberant. Palpations: Abdomen is soft. Tenderness: There is no abdominal tenderness. Musculoskeletal: Right lower leg: Edema (trace) present. Left lower leg: Edema (trace) present. Skin: General: Skin is warm. Coloration: Skin is pale. Neurological: Mental Status: He is alert and oriented to person, place, and time. Psychiatric: Attention and Perception: Attention normal. Mood and Affect: Mood normal. Speech: Speech normal. Laboratory Tests: TROPONIN I, CONVENTIONAL SENSITIVITY No results found for: CKTOTAL, CKMB, CKMBINDEX, TROPONINI TROPONIN I, HIGH SENSITIVITY Troponin HS Serial Baseline Date Value Ref Range Status 04/05/2025 29 <=35 ng/L Final Comment: In individuals presenting with symptoms > 2h, a baseline troponin <= 5 ng/L suggests acute cardiac injury is unlikely and further serial testing is generally not indicated. 04/05/2025 30 <=35 ng/L Final Comment: In individuals presenting with symptoms > 2h, a baseline troponin <= 5 ng/L suggests acute cardiac injury is unlikely and further serial testing is generally not indicated. 2h Troponin HS (Serial 2nd Troponin) Date Value Ref Range Status 04/05/2025 28 <=35 ng/L Final Comment: 2h troponin (2nd troponin) samples collected between 1h 40 min and 2h and 20 min of the baseline collection time can be utilized to interpret delta troponins as per [employer] algorithms. Samples collected outside this timeframe need to be interpreted clinically. Rising or falling troponin delta below 2 ng/L as compared to baseline value suggests that acute cardiac injury is unlikely. No results found for: TROPDELTBASE No results found for: TROPHS3 No results found for: TROPDELTSEC Recent Labs 04/10/25 0443 04/11/25 0501 04/12/25 0325 NA 142 139 139 K 3.2* 3.6 3.7 CL 95* 94* 95* CO2 35* 35* 37* BUN 32* 36* 40* CREATININE 1.65* 1.55* 1.53* Recent Labs 04/10/25 0443 04/11/25 0501 04/12/25 0325 WBC 12.4* 13.8* 12.0* HGB 7.2* 7.9* 7.4* HCT 26.1* 28.9* 26.8* MCV 82.1 83.0 83.8 PLT 294 313 272 No results for input(s): BNP in the last 72 hours. No results for input(s): TRIG, HDL, LDLCALC, CHOL in the last 72 hours. No results found for: LDLCHOLESTER Lab Results Component Value Date TSH 10.19 (H) 04/05/2025 EF BP Date Value Ref Range Status 04/06/2025 22 (A) 55 - 100 % Final 04/05/25 TRANSTHORACIC ECHOCARDIOGRAM (TTE) COMPLETE (CONTRAST/BUBBLE/3D PRN) 04/06/2025 12:42 PM (Final) Interpretation Summary Left Ventricle: Left ventricle is mildly dilated. Normal wall thickness. Severely reduced left ventricular systolic function. EF by 2D Simpsons Biplane is 22%. Severe global hypokinesis present. Right Ventricle: Not well visualized. Right ventricle size is normal. Normal systolic function. Mitral Valve: Moderate (2+) regurgitation. Tricuspid Valve: Severely elevated RVSP. RVSP is 66 mmHg. Left Atrium: Left atrium is mildly dilated. Pericardium: Left pleural effusion. Technically difficult study. Signed by: Thomas Hinton MD on 04/06/2025 12:42 PM Other reports reviewed: Cardiac Tests: Telemetry findings reviewed: SR with PAC EF BP Date Value Ref Range Status 04/06/2025 22 (A) 55 - 100 % Final LOURDSE Benson CNP Date Of Service 04/12/2025 [1] [facility] Res[facility] Care Department Progress Note Comment or reasoning for refusal: Patient was seen in attempts to fulfill CPAP/BiPAP/AutoPAP order. Patient refused PAP therapy/study at this time. Patient was educated on medical need and reasoning for physician order to ensure patient was making an informed medical decision. All of the patient's questions were answered at this time and patient was informed that if the patient changes their mind regarding wearing PAP to hit their call light or inform their nurse to contact Respiratory. A second, consecutive night of refusing PAP therapy/study results in order completion in the EMR. If future CPAP/BiPAP/AutoPAP therapy or study is indicated please place another order in the EMR and the assigned Respiratory Therapist will reattempt to fulfill orders. Reason for refusal:refused Thank you for involving Respiratory in the care of this patient, Images from the original note were not included. OCCUPATIONAL THERAPY [facility] Treatment Note Name/MRN: Mary Charles ([id number]) Date of : 1935 Age: 89 y.o. Room/Bed: [facility] B Visit #: 1 out of 7 Discharge Recommendation[facility] Equipment Needed: No Prior Level of Function Prior Level of ADL Function: Required Assist (for showering and pt wipes himself down with wash cloth IND) Prior Level of Mobility: Independent; Device: Rollator Prior Level of Transfers: Independent Assessment Pt in bed upon arrival, agreeable to OT tx. Pt was min-mod for bed-mobility, min assist for STS, CGA for functional transfers, Min assist for marching in place, and SBA for ADL's. Pt is progressing well with OT goals but still remains below baseline. Pt is limited by generalized weakness, decreased strength/endurance, increased instability, fall risk. Pt would continue to benefit from skilled OT therapy services to adapt to deficits and increase Occupational Performance. OT is rec SNF upon planned discharge. Subjective Ok to see for therapy. Pain: Pt denies any current pain. Medical Precautions: No active isolations Proper PPE donned/doffed in accordance with facility standards. Fall Risk: Tompkins Fall Risk Score: 60 (High Risk) Precautions/Restrictions: Lines/Drains/Airways: ICU tele, 2L O2 n.c., external catheter Family/Caregiver Present: none Objective ADLs Grooming: SBA UE Dressing: Min Assist Pt completed seated grooming tasks EOB to increase core strength with SBA for safey. Pt required min assist for gown and lace mgmnt. Bed Mobility Supine to sit: Min Assist Sit to supine: Mod Assist Scooting: Min Assist HOB Elevated Use of bed rail(s) Pt completed supine to sit with min assist to guide BL LE's off of bed and to elevate trunk. Min assist to scoot hips forward towards EOB. No reports of dizziness with positional changes. Pt returned supine with mod assist to elevate BL LE's and assist with trunk alignment. Transfers/Mobility Sit to stand: Min Assist Stand to sit: Min Assist Stand step: Contact Guard Standing balance: Contact Guard Functional mobility: Min Assist Pt completed x3 STS from various surfaces from EOB to fww with min assist for STS d/t slight instability. Pt completed stand step to EOB with CGA for controlled descent and v/c's for safety awareness. Pt completed balance training for ~4 mins with CGA for steadiness. Pt participated marching in place to simulate ambulation with min assist for balance d/t mild instability. Device(s) used: Front wheeled walker Cognition Overall Cognitive Status: WFL Overall Orientation Status: Oriented x4 Plan Continue acute OT per plan of care. Safety/Education Safety Safety Devices in place: All fall risk precautions in place, call light within reach, left in bed, gait belt, nurse notified, and no alarms engaged upon entry Restraints: No Education Education Given To: patient Education Provided: OT Role, Plan of Care, ADL Adaptive Strategies, Transfer Training, Energy Conservation, Equipment, Fall Prevention Education, Discharge Recommendations, and Benefits of Increasing Activity Education Method: Verbal, Demonstration, and Teach Back Barriers to Learning: None Education Outcome: Verbalized Understanding and Demonstrated Understanding AM-PAC AM-PAC Inpatient Daily Activity Raw Score: 16 ADL Inpatient CMS G-Code Modifier: CK Goals Patient Stated Goal: to return home. Encounter Problems Encounter Problems (Active) Dressing Upper Extremities Patient will complete upper body dressing SUP (Progressing) Start: 04/10/25 Expected End: 04/20/25 Dressings Lower Extremities Patient will dress lower body SBA (Not Addressed) Start: 04/10/25 Expected End: 04/20/25 Mobility Patient will demonstrate functional mobility with SUP and FWW (Progressing) Start: 04/10/25 Expected End: 04/20/25 Toileting Patient will complete toileting tasks at standard toilet with SBA. (Not Addressed) Start: 04/10/25 Expected End: 04/20/25 Transfers Patient will complete functional transfer with rolling walker with SBA in order to prepare for ambulation. (Progressing) Start: 04/10/25 Expected End: 04/20/25 Therapy Time Individual Co-treatment Time In 1026 Time Out 1053 Minutes 27 Timed Code Treatment Minutes: 27 Minutes (1 ADL, 1 ACT) PRATIMA Vanegas/Gilbert Cosigned by Jose Guadalupe Gongora OT at 04/11/2025 1:38 PM EDT Hospitalist Progress Note 04/11/[id number]: Please secure chat me for patient care issues. [phone]: Please secure chat [place] night Hospitalist for any issues. Subjective: Admit Date: 04/05/2025 PCP: No primary care provider on file. Room#: B2-268/B2-268 B Brief History: Patient is an 89-year-old gentleman admitted for increasing confusion and CHF exacerbation, was treated on telemetry floor initially later become more lethargic and hypoxic and was transferred to ICU for NIV placement, treated with IV diuresis, patient also has bilateral pleural effusion and underwent bilateral thoracentesis with improvement in respiratory status, tolerated BiPAP, transferred out to the telemetry service back, also had anemia and received blood transfusion. Consults : Critical care, pulmonology, cardiology PT and OT Chief Complaint : Slightly lethargic but opens eyes and answers questions says his breathing is better in 2 days, denies any cough, has constipation Cardiology following Adult diet Regular; No Added Salt (3-4 gm) @[id number]@ 24HR INTAKE/OUTPUT: Intake/Output Summary (Last 24 hours) at 04/11/2025 1051 Last data filed at 04/10/2025 1947 Gross per 24 hour Intake -- Output 275 ml Net -275 ml Past Medical History: Medical History[1] LABS: CBC: Recent Labs 04/09/25 0409 04/10/25 0443 04/11/25 0501 WBC 11.2* 12.4* 13.8* RBC 3.32* 3.18* 3.48* HGB 7.5* 7.2* 7.9* HCT 27.7* 26.1* 28.9* MCV 83.4 82.1 83.0 RDW 21.8* 22.9* 24.2* PLT 279 294 313 BMP: Recent Labs 04/09/25 0409 04/10/25 0443 04/11/25 0501 NA 142 142 139 K 3.5 3.2* 3.6 CL 98 95* 94* CO2 34* 35* 35* BUN 25* 32* 36* CREATININE 1.53* 1.65* 1.55* GLUCOSE 90 98 103 CALCIUM 8.1* 8.0* 8.1* ANIONGAP 10 12 10 LIVER PROFILE: Recent Labs 04/09/25 0409 04/09/25 1019 04/10/25 0443 04/11/25 0501 AST 18 -- 16 18 ALT <6 -- <6 <6 BILITOT 0.7 -- 0.6 0.7 ALKPHOS 56 -- 50 53 PROT 5.7* 5.9* 5.5* 6.1* PT/INR: No results for input(s): PROTIME, INR in the last 72 hours. CARDIAC ENZYMES: No results for input(s): TROPONINI in the last 72 hours. Procalcitonin: No results found for: PROCAL COVID-19 PCR: No results for input(s): COVID19 in the last 72 hours. Objective: Vitals: BP 105/54 (BP Location: Right arm, Patient Position: Sitting) Pulse 51 Temp 36.7 C (98 F) (Temporal) Resp 18 Ht 5' 8 (1.727 m) Wt 198 lb 13.7 oz (90.2 kg) SpO2 96% BMI 30.24 kg/m Pulse Ox: SpO2 Av.3 % Min: 75 % Max: 100 % Physical Exam Constitutional: Appearance: He is obese. He is ill-appearing. Cardiovascular: Rate and Rhythm: Regular rhythm. Tachycardia present. Pulses: Normal pulses. Heart sounds: Normal heart sounds, S1 normal and S2 normal. Abdominal: General: Bowel sounds are normal. Palpations: Abdomen is soft. Musculoskeletal: Right lower le+ Pitting Edema present. Left lower le+ Pitting Edema present. Skin: Comments: Chronic skin changes of the legs bilaterally Medications: Continuous Meds[2] Scheduled Meds[3] Assessment Acute Problems : Acute on chronic CHF exacerbation with severely reduced left ventricular ejection fraction Ischemic cardiomyopathy Acute on chronic hypoxic and hypercapnic respiratory failure Bilateral pleural effusion status postthoracentesis on April 09 1 L from the left, 600 mL from the right CKD stage IIIb Anemia of chronic disease status post PRBC transfusion -GI followed, workup deferred due to respiratory status Hypomagnesemia Stable chronic problems affecting care, new non-acute diagnoses: Medical Decision Making 04/11-moved out of the ICU, IV diuresis switched to p.o. torsemide 40 mg daily, monitor daily weights and intake and output, BiPAP use at night encouraged, PT and OT assessments when able Possible outpatient GI workup for anemia -am labs, replace lytes prn -increase activity -DVT prophylaxis: [] Lovenox [] Heparin [x] SCDs [x] Encourage ambulation [] Already on Anticoagulation - GI prophylaxis : Anticipated Discharge - Date -04/12 or 04/13 - Location -Home with home health versus [facility] facility - Pending the following -PT and OT assessments and clinical improvement, cardiology clearance Total time spent (which include face to face and non face to face encounters) : 56 minutes Toxic drug monitoring/narrow therapeutic index drug monitoring : # Drug name : # Route administered : # Method of monitoring : Extended Emergency Contact Information Primary Emergency Contact: ANAHY CHARLES Mobile Relation: Daughter Preferred language: [employer] Utility Operator needed? No Westley Martinez MD Division of Hospitalist Medicine [employer] [facility] PAGER: [employer] chat [1] History reviewed. No pertinent past medical history. [2] [3] atorvastatin, 20 mg, Oral, Nightly hydrALAZINE, 25 mg, Oral, TID magnesium sulfate, 2,000 mg, IntraVENous, Once metoprolol succinate XL, 25 mg, Oral, Daily mupirocin, 1 Application, Nasal, BID pantoprazole, 40 mg, Oral, qAM AC polyethylene glycol (PEG) 3350, 17 g, Oral, Daily senna-docusate sodium, 2 tablet, Oral, BID [START ON 04/12/2025] torsemide, 40 mg, Oral, Daily [facility] Cardiology /Electrophysiology Progress Note HPI / Interval History: Mary Charles has no prior cardiac history (has not seen a physician for many years) who presented to [facility] with worsening SOB, hypoxia and edema. CXR with pulmonary edema. Hs-trop 29-28, pro-BNP 8438, creatinine 1.44, Hgb 5.6. He received 2 units pRBC and Hgb 7.4 this AM. He was seen by Dr. Scherer in consultation and TTE showed EF 22% with global hypokineses and 2+ MR. He is being diuresed with IV lasix and was started on GDMT. Due to anemia and frailty, he is recommended for medical management. He was also noted to have mural thickening involving the cecum and terminal ileum with concern for neoplasm or inflammation. GI is following and is recommending EGD and colonoscopy when stable from a cardiac standpoint. The evening of 04/08/2025, he was transferred to ICU due to increased somnolence, shortness of breath and increased work of breathing. Repeat chest x-ray showed worsening pleural effusions and pulmonary edema. ABG with acute hypercarbia he was transferred to ICU for NIV. He had bedside right thoracentesis with 600 mL of fluid removed and left thoracentesis with 1 L of fluid removed. He is recommended for chronic nocturnal NIV on discharge. IV Lasix continues. Today, he feels weak. He states he is sore from PT/OT yesterday. His SOB and edema continue to improve. He denies CP, PND, orthopnea, palpitations, syncope. Assessment/Plan HF NYHA Class [] I [] II [] III [] IV []Unable to assess [] N/A HFrEF 2/2 suspected ICM, Stage C, Class II, EF 22% per TTE 03/2025 -daily weight not documented this AM -I&O -584 mL (if accurate) -Heart failure symptoms and volume status improving -stop IV lasix - start torsemide 40 mg po daily -continue Toprol 25 mg po daily - continue hydralazine 25 mg po TID - unable to titrate further GDMT 2/2 low BP - no ASA 2/2 anemia - continue atorvastatin 20 mg po daily -not a good candidate for invasive work up at this point due to frailty, anemia -palliative care on board to continue discussions of goals of care, currently a full code Bilateral pleural effusion -Bedside thoracentesis 04/09/2025 with 1 L removed from the left and 600 mL removed from the right -Continue to monitor -repeat CXR ordered CKD - creatinine 1.46 on admission, 1.63 > 1.78 > 1.53 >1.65> 1.55 - Continue to monitor with diuresis Anemia - Hgb 5.6 on admission and 7.8 after 2 uPRBc >7.9 today - continue venofer - per primary team -no current plans for EGD/Colonoscopy until more stable Mural thickening cecum and terminal ileum per CT scan - GI following - they recommend EGD and colonoscopy once cardiac status improved Hypomagnesemia - will give 2 GM Mg Sulfate x 1 now - recheck Mg in AM Dispo: continue to follow Medications: atorvastatin, 20 mg, Oral, Nightly furosemide, 40 mg, IntraVENous, BID hydrALAZINE, 25 mg, Oral, TID metoprolol succinate XL, 25 mg, Oral, Daily mupirocin, 1 Application, Nasal, BID pantoprazole, 40 mg, Oral, qAM AC polyethylene glycol (PEG) 3350, 17 g, Oral, Daily senna-docusate sodium, 2 tablet, Oral, BID [Held by provider] torsemide, 20 mg, Oral, Daily Infusion Medications: Continuous Meds[1] Physical Examination: Vitals: 04/10/25 2105 04/10/25 2333 04/10/25 2356 04/11/25 0322 BP: (!) 84/44 92/60 122/61 BP Location: Right arm Patient Position: Sitting Pulse: 67 68 63 67 Resp: 18 20 Temp: 37.3 C (99.1 F) 36.8 C (98.2 F) TempSrc: Temporal Temporal SpO2: (!) 75% 97% 100% Weight: Height: Intake/Output Summary (Last 24 hours) at 04/11/2025 0731 Last data filed at 04/10/2025 1947 Gross per 24 hour Intake -- Output 275 ml Net -275 ml Patient Vitals for the past 168 hrs: Weight Weight Method 04/10/25 0002 198 lb 13.7 oz (90.2 kg) Bed scale 04/09/25 0026 209 lb 10.5 oz (95.1 kg) Bed scale 04/06/25 1217 200 lb (90.7 kg) -- 04/05/25 1608 200 lb (90.7 kg) Stated Physical Exam Vitals reviewed. Constitutional: Appearance: Normal appearance. HENT: Head: Normocephalic and atraumatic. Mouth/Throat: Mouth: Mucous membranes are moist. Pharynx: Oropharynx is clear. Neck: Vascular: No JVD. Cardiovascular: Rate and Rhythm: Normal rate and regular rhythm. Heart sounds: Normal heart sounds. Pulmonary: Effort: Pulmonary effort is normal. Breath sounds: Decreased breath sounds present. Abdominal: General: Abdomen is protuberant. Palpations: Abdomen is soft. Tenderness: There is no abdominal tenderness. Musculoskeletal: Right lower leg: Edema (trace) present. Left lower leg: Edema (trace) present. Skin: General: Skin is warm. Coloration: Skin is pale. Neurological: Mental Status: He is alert and oriented to person, place, and time. Psychiatric: Attention and Perception: Attention normal. Mood and Affect: Mood normal. Speech: Speech normal. Laboratory Tests: TROPONIN I, CONVENTIONAL SENSITIVITY No results found for: CKTOTAL, CKMB, CKMBINDEX, TROPONINI TROPONIN I, HIGH SENSITIVITY Troponin HS Serial Baseline Date Value Ref Range Status 04/05/2025 29 <=35 ng/L Final Comment: In individuals presenting with symptoms > 2h, a baseline troponin <= 5 ng/L suggests acute cardiac injury is unlikely and further serial testing is generally not indicated. 04/05/2025 30 <=35 ng/L Final Comment: In individuals presenting with symptoms > 2h, a baseline troponin <= 5 ng/L suggests acute cardiac injury is unlikely and further serial testing is generally not indicated. 2h Troponin HS (Serial 2nd Troponin) Date Value Ref Range Status 04/05/2025 28 <=35 ng/L Final Comment: 2h troponin (2nd troponin) samples collected between 1h 40 min and 2h and 20 min of the baseline collection time can be utilized to interpret delta troponins as per [employer] algorithms. Samples collected outside this timeframe need to be interpreted clinically. Rising or falling troponin delta below 2 ng/L as compared to baseline value suggests that acute cardiac injury is unlikely. No results found for: TROPDELTBASE No results found for: TROPHS3 No results found for: TROPDELTSEC Recent Labs 04/09/25 0409 04/10/25 0443 04/11/25 0501 NA 142 142 139 K 3.5 3.2* 3.6 CL 98 95* 94* CO2 34* 35* 35* BUN 25* 32* 36* CREATININE 1.53* 1.65* 1.55* Recent Labs 04/08/25 1654 04/08/25205204/09/25 0409 04/10/25 0443 04/11/25 0501 WBC -- -- 11.2* 12.4* 13.8* HGB 8.6* 8.4* 7.5* 7.2* 7.9* HCT -- -- 27.7* 26.1* 28.9* MCV -- -- 83.4 82.1 83.0 PLT -- -- 279 294 313 No results for input(s): BNP in the last 72 hours. No results for input(s): TRIG, HDL, LDLCALC, CHOL in the last 72 hours. No results found for: LDLCHOLESTER Lab Results Component Value Date TSH 10.19 (H) 04/05/2025 EF BP Date Value Ref Range Status 04/06/2025 22 (A) 55 - 100 % Final 04/05/25 TRANSTHORACIC ECHOCARDIOGRAM (TTE) COMPLETE (CONTRAST/BUBBLE/3D PRN) 04/06/2025 12:42 PM (Final) Interpretation Summary Left Ventricle: Left ventricle is mildly dilated. Normal wall thickness. Severely reduced left ventricular systolic function. EF by 2D Simpsons Biplane is 22%. Severe global hypokinesis present. Right Ventricle: Not well visualized. Right ventricle size is normal. Normal systolic function. Mitral Valve: Moderate (2+) regurgitation. Tricuspid Valve: Severely elevated RVSP. RVSP is 66 mmHg. Left Atrium: Left atrium is mildly dilated. Pericardium: Left pleural effusion. Technically difficult study. Signed by: Thomas Hinton MD on 04/06/2025 12:42 PM Other reports reviewed: Cardiac Tests: Telemetry findings reviewed: SR with PVC, PAC EF BP Date Value Ref Range Status 04/06/2025 22 (A) 55 - 100 % Final LOURDES Benson CNP Date Of Service 04/11/2025 [1] [facility] Department Progress Note Comment or reasoning for refusal: Patient was seen in attempts to fulfill CPAP/BiPAP/AutoPAP order. Patient refused PAP therapy/study at this time. Patient was educated on medical need and reasoning for physician order to ensure patient was making an informed medical decision. All of the patient's questions were answered at this time and patient was informed that if the patient changes their mind regarding wearing PAP to hit their call light or inform their nurse to contact Respiratory. A second, consecutive night of refusing PAP therapy/study results in order completion in the EMR. If future CPAP/BiPAP/AutoPAP therapy or study is indicated please place another order in the EMR and the assigned Respiratory Therapist will reattempt to fulfill orders. Reason for refusal: Pt. States he is not ready right now and would like to hold of for tonight. Thank you for involving Respiratory in the care of this patient, Images from the original note were not included. PHYSICAL THERAPY [facility] Treatment Note Name/MRN: Mary Charles ([id number]) Date of : 1935 Age: 89 y.o. Room/Bed: 222-04/222-04 A Visit #: 2 out of 5 [facility]charge [facility] Equipment Needed: No Assessment Pt making some progress toward some PT goals this session. Pt continues to demo limitations in functional mobility, weakness, fatigue, instability, and requires cueing for sequencing and functional mobility. Pt is mod A for bed mobility, min-mod A for transfers, min A for ambulation with FWW. Pt with improved activity tolerance but attempted to assess oxygen demand and wean down from 2L and pt unable to tolerate - desats to 80% on RA and 85% on 1L with brief activity. Pt would continue to benefit from skilled PT intervention to address limitations and improve return to PLOF. SNF remains appropriate. Subjective Patient pleasant and agreeable to therapy session this date. Per RN, pt is ok to see. Daughter, Anahy, present during session but steps out during activities. Pt heavily soiled of urine upon arrival. Pain: Pt denies any current pain. Medical Precautions: No active isolations Proper PPE donned/doffed in accordance with facility standards. Fall Risk: Tompkins Fall Risk Score: 60 (High Risk) Precautions/Restrictions: Lines/Drains/Airways: ICU tele, 2L O2 n.c., external catheter Overall Cognitive Status: Exceptions - Memory: decreased short term memory - Safety judgement: decreased awareness of need for assistance - Problem solving: assistance required to generate solutions, assistance required to implement solutions, assistance required to identify errors made, assistance required to correct errors made, and decreased awareness of errors - Initiation: requires cues for some - Sequencing: requires cues for some Overall Orientation Status: Oriented x4 Family/Caregiver Present: child(jono) Objective Bed Mobility Supine to sit: Mod Assist Sit to supine: Mod Assist HOB elevated, use of bed rails, with increased time and effort required, compensations from UEs to complete bed mobility. Mod A for trunk and BLE mgmt out/in. Denies dizziness. Transfers/Mobility Sit to stand: Min Assist, Mod Assist Stand to sit: Min Assist Pt requires VC to complete transfers for hand placement, FWW management, nose over toes, and full extension. Initial mod A progressing to min A with blocked practice and appropriate UE use. Denies dizziness. 1x10 blocked practice STS from recliner chair to RW with min-mod A. Device(s) used: Front wheeled walker Ambulation Ambulation 1 Assistive device(s) used: Front wheeled walker Assist level: Min Assist Distance (ft): 3' x 2 + simulated ambulation with continuous tele monitoring Quality of gait: shuffling, wide CHEVY, slow bello, instability through all phases, increased reliance on RW. With marching in place ~60 sec pt demos desat to 85% on 1L NC with attempts to wean O2. Balance During Session: Posture: fair Sitting - Static: SBA Sitting - Dynamic: SBA Standing - Static: Contact Guard with RW Standing - Dynamic: Min Assist with RW Exercises Exercises Hamstring Sets: standing butt kicks 1x10 B Hip Flexion: standing marches 1x10 B Hip Abduction: standing 1x10 B Attempted to wean O2 during activity but pt unable to tolerate less than 2L O2 without desatting to mid-to-low 80s. Plan Continue acute PT per plan of care. Safety/Education Safety Safety Devices in place: All fall risk precautions in place, call light within reach, left in bed, gait belt, patient at risk for falls, nurse notified, and no alarms engaged upon entry Restraints: No Education Education Given To: patient Education Provided: PT Role, PT Goals, Gait Training, Plan of Care, Transfer Training, Energy Conservation, Fall Prevention Education, Discharge Recommendations, and Benefits of Increasing Activity Education Method: Verbal and Demonstration Barriers to Learning: Cognition Education Outcome: Verbalized Understanding, Demonstrated Understanding, and Continued Education Needed Outcome Measures AM-PAC AM-PAC Inpatient Mobility Raw Score (No Stairs) : 14 JH-HLM JH-HLM Score: Static standing (1 or more minutes) Goals Patient Stated Goal: pt did not state Encounter Problems Encounter Problems (Active) Balance Patient will maintain dynamic standing balance for 3-5 minutes with CGA in order to demonstrate decreased risk of falling. (Progressing) Start: 04/07/25 Expected End: 04/14/25 Exercise Patient will complete lower extremity exercises for 1-2 sets / 5-10 reps in order to improve strength and activity tolerance for mobility. (Progressing) Start: 04/07/25 Expected End: 04/14/25 Mobility Patient will ambulate 25 feet with CGA and least restrictive device in order to improve safety and independence with mobility. (Progressing) Start: 04/07/25 Expected End: 04/14/25 Transfers Patient will perform bed mobility with CGA in order to improve independence and prepare for out of bed mobility. (Progressing) Start: 04/07/25 Expected End: 04/14/25 Patient will complete functional transfer with least restrictive device with CGA in order to prepare for ambulation. (Progressing) Start: 04/07/25 Expected End: 04/14/25 Therapy Time Individual Co-treatment Time In 1345 Time Out 1421 Minutes 36 Timed Code Treatment Minutes: 31 Minutes (TA x2) Nessa Samuel PT Images from the original note were not included. OCCUPATIONAL THERAPY [facility] Initial Evaluation Name/MRN: Mary Charles ([id number]) Evaluation Date: 04/10/2025 Date of : 1935 Admission Date: 04/05/2025 3:55 PM Age: 89 y.o. Room/Bed: 222-04/222-04 A [facility]charge [facility]ation[facility] Equipment Needed: No Assessment IMPRESSION: Pt in 04/05 with HFrEF, SIENA, and admitted to ICU 04/08 with SOB and respiratory failure. He was previously requiring some assist for ADLs, and was otherwise IND for transfers / mobility. He is currently MOD - MIN A for transfers, CGA for mobility with a FWW, MOD - MAX A For LB ADLS, and MIN - SBA for seated UB ADLS. He is limited by increased fatigue, weakness, instability, and shortness of breath at this time. SpO2 noted to remain 89 to 94% on 2 L O2 nasal cannula this date. Heart rate noted to be 80s to 100s with activity. He fatigues rapidly with out of bed activity at this time. Recommend plan discharge for SNF at this time. He would continue to benefit from skilled OT services to address the below. Admitting Diagnosis: Heart failure with reduced ejection fraction, SIENA, shortness of breath Performance Deficits /Impairments: Decreased Functional Mobility, Decreased ADL status, Decreased Strength, Decreased Endurance, Decreased Balance, and Decreased High Level IADLs Prognosis: Good Decision Making: Medium Complexity Subjective Pleasant and cooperative. OK to see per RN. Agreeable to therapy evaluation. Pain: Pt denies any current pain. Past Medical History: Medical History[1] Past Surgical History: Surgical History[2] Admission Diagnosis: Patient Active Problem List Diagnosis Date Noted Acute congestive heart failure, unspecified heart failure type (HCC) 04/05/2025 Medical Precautions: No active isolations Proper PPE donned/doffed in accordance with facility standards. Fall Risk: Tompkins Fall Risk Score: 60 (High Risk) Precautions/Restrictions: Lines/Drains/Airways: ICU tele, 2L O2 n.c., external catheter Family/Caregiver Present: none Overall Cognitive Status: WFL Overall Orientation Status: Oriented x4 Social/Functional History Patient admitted from home. Lives With: Alone Type of Home: single family home Home Layout: Single Level Home Home Access: Stairs to Enter with Rails (# of stairs: 3) Bathroom Shower/Tub: Shower Chair without Back, Walk in Shower, and Grab Bars Toilet: Standard Home Equipment: rollator Homemaking Responsibilities: Needs Assist Receives Help From: Family Active Senior Mortgage Underwriter: No Prior Level of Function Prior Level of ADL Function: Required Assist (for showering and pt wipes himself down with wash cloth IND) Prior Level of Mobility: Independent; Device: Rollator Prior Level of Transfers: Independent Objective ADLs LE Dressing: Max Assist Patient demos diminished functional reach, strength, endurance, and balance for participation in ADL tasks at this time. Increased assist required this date to adjust bilateral socks and sitting edge of bed at this time with diminished functional reach noted during completion. He declines formal participation in ADLs this date. He would likely require multiple rest breaks for standard participation in ADLs at this time secondary to increased fatigue. Bed Mobility Supine to sit: Min Assist Scooting: SBA Head of bed elevated. Mild c/o dizziness with positional changes which subsided with seated rest following completion. Min assist overall for supine to sit mobility this date with increased reliance on bed rails and pull upon therapist at this time. Patient able to manage right lower extremity at edge of bed with min assist overall for left lower extremity management. He was able to scoot himself to edge of bed once in partial sitting. Patient up in recliner following session. Transfers/Mobility Sit to stand: Min Assist, Mod Assist Stand to sit: Contact Guard Functional mobility: Contact Guard Patient completed sit to stands x 2 this date with mod assist progressing to min assist overall. Initial sit completed from edge of bed to front wheel walker with mod assist overall for lifting to standing. Cueing for proper hand placement for push up from/reach back for seated surfaces with good bilateral lower extreme management noted for proper base support. He was able to complete short mobility from edge of bed to recliner with contact-guard assist overall and assist for line management. Good front wheel walker management noted during completion. SpO2 noted with mild desat to 89% recovering to greater than 92% on 2 L O2 nasal cannula within 1 minute of sitting. Patient however with increased noted fatigue during completion. After short rest break patient able to complete short mobility in room with continued use of front wheel walker. Min assist overall for lifting to standing from recliner with use of arm rails for push up and standing. Continued good front wheel walker management during mobility however limited by lines and fatigue this date. Patient only able to tolerate short mobility in room before requiring return to sitting with increased shortness of breath and SpO2 noted to remain within functional limits during completion. Device(s) used: Front wheeled walker Vision: Not Assessed Hearing: normal AM-PAC AM-PAC Inpatient Daily Activity Raw Score: 16 ADL Inpatient CMS G-Code Modifier: CK Plan Pt would benefit from skilled acute OT services to address Strengthening, Balance Training, Self-Care/ADL Training, Functional Mobility Training, Endurance Training, Safety Education and Training, Equipment Evaluation/Education, Home Management Training, and Patient/Caregiver Training Frequency: 7 visits during current hospital admission or until additional recommendations are made Barriers: Impaired balance, Lower extremity weakness, Decreased endurance, Dizziness, and Limited participation Safety/Education Safety Safety Devices in place: All fall risk precautions in place, call light within reach, left in chair, gait belt, patient at risk for falls, nurse notified, and no alarms engaged upon entry Restraints: No Education Education Given To: patient Education Provided: OT Role, Plan of Care, ADL Adaptive Strategies, Transfer Training, Equipment, Fall Prevention Education, Discharge Recommendations, and Benefits of Increasing Activity Education Method: Verbal, Demonstration, and Teach Back Barriers to Learning: None Education Outcome: Verbalized Understanding and Demonstrated Understanding Goals Patient Stated Goal: to return home. Encounter Problems Encounter Problems (Active) Dressing Upper Extremities Patient will complete upper body dressing SUP Start: 04/10/25 Expected End: 04/20/25 Dressings Lower Extremities Patient will dress lower body SBA Start: 04/10/25 Expected End: 04/20/25 Mobility Patient will demonstrate functional mobility with SUP and FWW Start: 04/10/25 Expected End: 04/20/25 Toileting Patient will complete toileting tasks at standard toilet with SBA. Start: 04/10/25 Expected End: 04/20/25 Transfers Patient will complete functional transfer with rolling walker with SBA in order to prepare for ambulation. Start: 04/10/25 Expected End: 04/20/25 Therapy Time Individual Co-Treatment Co-Evaluation Time In 0954 Time Out 1019 Minutes 25 Timed Code Treatment Minutes: 8 Minutes (Ther Act) Jose Guadalupe Gongora OT Patient's Occupational Therapy Plan of Care supervision is transferred to a [facility] Occupational Therapist. Goals and/or treatment plan was established in collaboration with patient/family/other representatives. Portions of the information within this encounter were entered using an electronic dictation system. Best attempts were made to edit/proofread the information prior to note completion. Despite the review of information, some errors may remain. If there are questions related to the information contained within the note please contact the signing provider directly. [1] History reviewed. No pertinent past medical history. [2] History reviewed. No pertinent surgical history. [facility] [place] [facility] Cardiology /Electrophysiology Progress Note HPI / Interval History: Mary Melvin has no prior cardiac history (has not seen a physician for many years) who presented to [facility] with worsening SOB, hypoxia and edema. CXR with pulmonary edema. Hs-trop 29-28, pro-BNP 8438, creatinine 1.44, Hgb 5.6. He received 2 units pRBC and Hgb 7.4 this AM. He was seen by Dr. Scherer in consultation and TTE showed EF 22% with global hypokineses and 2+ MR. He is being diuresed with IV lasix and was started on GDMT. Due to anemia and frailty, he is recommended for medical management. He was also noted to have mural thickening involving the cecum and terminal ileum with concern for neoplasm or inflammation. GI is following and is recommending EGD and colonoscopy when stable from a cardiac standpoint. The evening of 04/08/2025, he was transferred to ICU due to increased somnolence, shortness of breath and increased work of breathing. Repeat chest x-ray showed worsening pleural effusions and pulmonary edema. ABG with acute hypercarbia he was transferred to ICU for NIV. He had bedside right thoracentesis with 600 mL of fluid removed and left thoracentesis with 1 L of fluid removed. He is recommended for chronic nocturnal NIV on discharge. IV Lasix continues. Today, he is sitting up in bed. He states he feels better this AM. He denies CP, PND, orthopnea, edema, palpitations, syncope. SOB is improving. He remains on O2. 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 Accuracy) -I&O -309 mL (? Accuracy) -Heart failure symptoms improving but remains volume overloaded -continue IV Lasix - change coreg to Toprol 25 mg po BID due to low BP - continue hydralazine 25 mg po TID - unable to titrate GDMT 2/2 low BP - no ASA 2/2 anemia - continue atorvastatin 20 mg po daily -not a good candidate for invasive work up at this point due to frailty, anemia -palliative care on board to continue discussions of goals of care Bilateral pleural effusion -Bedside thoracentesis 04/09/2025 with 1 L removed from the left and 600 mL removed from the right -Continue to monitor CKD - creatinine 1.46 on admission, 1.63 > 1.78 > 1.53 >1.65 - Continue to monitor with diuresis Anemia - Hgb 5.6 on admission and 7.8 after 2 uPRBc >7.2 today - continue venofer - per primary team -no current plans for EGD/Colonoscopy until more stable Mural thickening cecum and terminal ileum per CT scan - GI following - they recommend EGD and colonoscopy once cardiac status improved Dispo: continue to follow Medications: atorvastatin, 20 mg, Oral, Nightly carvedilol, 3.125 mg, Oral, BID WC furosemide, 40 mg, IntraVENous, BID hydrALAZINE, 25 mg, Oral, TID mupirocin, 1 Application, Nasal, BID pantoprazole, 40 mg, Oral, qAM AC polyethylene glycol (PEG) 3350, 17 g, Oral, Daily senna-docusate sodium, 2 tablet, Oral, BID [Held by provider] torsemide, 20 mg, Oral, Daily Infusion Medications: Continuous Meds[1] Physical Examination: Vitals: 04/10/25 0444 04/10/25 0502 04/10/25 0602 04/10/25 0614 BP: 106/63 98/51 BP Location: Patient Position: Pulse: 70 76 102 Resp: 15 19 21 Temp: 37.4 C (99.4 F) TempSrc: Axillary SpO2: 98% 98% 98% Weight: Height: Intake/Output Summary (Last 24 hours) at 04/10/2025 0704 Last data filed at 04/10/2025 0614 Gross per 24 hour Intake 1570 ml Output 1750 ml Net -180 ml Patient Vitals for the past 168 hrs: Weight Weight Method 04/10/25 0002 198 lb 13.7 oz (90.2 kg) Bed scale 04/09/25 0026 209 lb 10.5 oz (95.1 kg) Bed scale 04/06/25 1217 200 lb (90.7 kg) -- 04/05/25 1608 200 lb (90.7 kg) Stated Physical Exam Vitals reviewed. Constitutional: Appearance: Normal appearance. HENT: Head: Normocephalic and atraumatic. Mouth/Throat: Mouth: Mucous membranes are moist. Pharynx: Oropharynx is clear. Neck: Vascular: No JVD. Cardiovascular: Rate and Rhythm: Normal rate and regular rhythm. Heart sounds: Normal heart sounds. Pulmonary: Effort: Pulmonary effort is normal. Breath sounds: Decreased breath sounds present. Abdominal: General: Abdomen is protuberant. Palpations: Abdomen is soft. Tenderness: There is no abdominal tenderness. Musculoskeletal: Right lower leg: Edema (trace) present. Left lower leg: Edema (trace) present. Skin: General: Skin is warm. Coloration: Skin is pale. Neurological: Mental Status: He is alert and oriented to person, place, and time. Psychiatric: Attention and Perception: Attention normal. Mood and Affect: Mood normal. Speech: Speech normal. Laboratory Tests: TROPONIN I, CONVENTIONAL SENSITIVITY No results found for: CKTOTAL, CKMB, CKMBINDEX, TROPONINI TROPONIN I, HIGH SENSITIVITY Troponin HS Serial Baseline Date Value Ref Range Status 04/05/2025 29 <=35 ng/L Final Comment: In individuals presenting with symptoms > 2h, a baseline troponin <= 5 ng/L suggests acute cardiac injury is unlikely and further serial testing is generally not indicated. 04/05/2025 30 <=35 ng/L Final Comment: In individuals presenting with symptoms > 2h, a baseline troponin <= 5 ng/L suggests acute cardiac injury is unlikely and further serial testing is generally not indicated. 2h Troponin HS (Serial 2nd Troponin) Date Value Ref Range Status 04/05/2025 28 <=35 ng/L Final Comment: 2h troponin (2nd troponin) samples collected between 1h 40 min and 2h and 20 min of the baseline collection time can be utilized to interpret delta troponins as per Summa algorithms. Samples collected outside this timeframe need to be interpreted clinically. Rising or falling troponin delta below 2 ng/L as compared to baseline value suggests that acute cardiac injury is unlikely. No results found for: TROPDELTBASE No results found for: TROPHS3 No results found for: TROPDELTSEC Recent Labs 04/08/25 0017 04/09/25 0409 04/10/25 0443 NA 142 142 142 K 3.4* 3.5 3.2* CL 99 98 95* CO2 33* 34* 35* BUN 26* 25* 32* CREATININE 1.78* 1.53* 1.65* Recent Labs 04/08/25 0017 04/08/25 1654 04/08/25 2053 04/09/25 0409 04/10/25 0443 WBC 13.0* -- -- 11.2* 12.4* HGB 7.2* 8.6* 8.4* 7.5* 7.2* HCT 25.9* -- -- 27.7* 26.1* MCV 80.2 -- -- 83.4 82.1 PLT 314 -- -- 279 294 No results for input(s): BNP in the last 72 hours. No results for input(s): TRIG, HDL, LDLCALC, CHOL in the last 72 hours. No results found for: LDLCHOLESTER Lab Results Component Value Date TSH 10.19 (H) 04/05/2025 EF BP Date Value Ref Range Status 04/06/2025 22 (A) 55 - 100 % Final 04/05/25 TRANSTHORACIC ECHOCARDIOGRAM (TTE) COMPLETE (CONTRAST/BUBBLE/3D PRN) 04/06/2025 12:42 PM (Final) Interpretation Summary Left Ventricle: Left ventricle is mildly dilated. Normal wall thickness. Severely reduced left ventricular systolic function. EF by 2D Simpsons Biplane is 22%. Severe global hypokinesis present. Right Ventricle: Not well visualized. Right ventricle size is normal. Normal systolic function. Mitral Valve: Moderate (2+) regurgitation. Tricuspid Valve: Severely elevated RVSP. RVSP is 66 mmHg. Left Atrium: Left atrium is mildly dilated. Pericardium: Left pleural effusion. Technically difficult study. Signed by: Thomas Hinton MD on 04/06/2025 12:42 PM Other reports reviewed: Cardiac Tests: Telemetry findings reviewed: SR EF BP Date Value Ref Range Status 04/06/2025 22 (A) 55 - 100 % Final LOURDES Benson CNP Date Of Service 04/10/2025 [1] MICU Progress Note Mary Charles : 1935(89 y.o.) Date: April 10, 2025 Team: MICU Attending: Precious Lewis MD Subjective: Hospital Summary: Patient is a pleasant 89 year-old male with a history of chronic HFrEF and prior remote tobacco abuse who was admitted to [facility] 04/05/25 with shortness of breath and cough. 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 He also had intermittent melena, Hgb was 5.5 on presentation, required [address] chest showed pulmonary edema and effusions, CT abdomen/pelvis showed mural thickening of the cecum and terminal ileum. ICU consulted 04/08/25 for somnolence and increased dyspnea. Repeat CXR showed worsening effusions and pulmonary edema, ABG showed acute on possibly chronic hypercarbia. He also received PRN ativan the night before. He was transferred to ICU for NIV. Underwent left thoracentesis (1000 mL removed) and right thoracentesis (600 mL removed) on 04/09/25 with notable improvement in respiratory status afterwards. Interval Events: Patient did well overnight. Tolerated BiPAP, on nasal cannula this morning, states breathing is improved. He feels constipated but otherwise has no new symptoms. Scheduled Meds:Scheduled Meds[1] Continuous Infusions:Continuous Meds[2] Objective: VITALS: BP 98/51 Pulse 102 Temp 37.4 C (99.4 F) (Axillary) Resp 21 Ht 1.727 m (5' 8) Wt 90.2 kg (198 lb 13.7 oz) SpO2 98% BMI 30.24 kg/m CURRENT PULSE OXIMETRY: SpO2: 98 % I/O: 04/09 0700 - 04/10 0659 In: 1570 [P.O.:1550; I.V.:20] Out: 1750 [Urine:150; Drains:1600] Ventilator Settings: FiO2 (%): 40 % Oxygen Delivery: O2 Flow Rate (L/min): 2 L/min Invasive Lines / Tubes / Drains: Peripheral IV 04/07/25 Anterior;Right Forearm (Active) Number of days: 1 Wounds: Wound/Incision 04/08/25 Skin Tear Forearm Anterior;Right (Active) Date First Assessed/Time First Assessed: 04/08/25 1815 Primary Wound Type: Skin Tear Location: Forearm Wound Location Orientation: Anterior;Right Wound Description (Comments): moist pink red Wound/Incision 04/08/25 Skin Tear Forearm Left;Proximal;Posterior (Active) Date First Assessed/Time First Assessed: 04/08/25 1900 Present on Original Admission: Yes Primary Wound Type: Skin Tear Location: Forearm Wound Location Orientation: Left;Proximal;Posterior Constitutional: General Appearance: []WDWN [x]Obese []Cachectic []Thin []ill Eyes: Inspection of Pupils/Irises: Pupils round and react: [x]Yes []No Sclera: []Icteric [x]Non-Icteric Inspection of Conjunctiva/Lids Conjunctiva: []Injected [x]Non-Injected Lids: [x]Intact []Lesion Present ENT/Mouth:: External Inspection of ears/nose [x] Normal [] Scar/Lesion/Mass Inspection of teeth/lips/gums: Dentition: [x][place] Teeth []Dentures Lips/Gums [x]Intact []Lesion Present Oropharynx exam: Mucosa [x][place] []Moist []Dry Neck: External Appearance: Overall Appearance:[x]Normal []Lesion/Mass/Crepitus Present Trachea midline [x]Yes []No Thyroid [x]Normal []Enlarged []Tender []Mass []Absent Respiratory:: Respiratory effort: []Labored [x]Non-Labored [] Mechanically-Ventilated Auscultation: []Clear [x]Crackles []Wheezes []Rhonchi Percussion/Palpation [x]Dullness []Hyperresonance []Tactile Fremitus Cardiovascular:: Auscultation: Rate [x]Regular []Irregular []Tachycardia []Bradycardia Rhythm: [x]Regular []Irregular Murmur: []Present [x]Absent Extremities: Peripheral Edema: [x]Present []Absent Varicosities: []Present [x]Absent GI: Abdomen: Palpation: [x]Soft []Firm []Tender [x]Non-Tender []Distended [x]Non-distended Mass: []Present [x]Absent Bowel Sounds [x]Present []Absent Hernia []Present [x]Absent Liver and Spleen: []Hepatosplenomegaly [x]Organomegaly Absent Musculoskeletal: Inspection of Digits and Nails: Cyanosis: []Present [x]Absent Clubbing: []Present [x]Absent Ischemia: []Present [x]Absent Infection: []Present [x]Absent Extremities: [x]NUNEZ Equally - Except ([]RUE []RLE []LUE []LLE) Strength/Tone: Intact and Normal ([]RUE []RLE []LUE []LLE) Skin: Inspection: Normal[x] Rash[] Lesion[] Ulcer[] Palpation: [x]Warm []Cool []Dry []Clammy []Nodules []Induration []Skin-tightening Cap-Refill [x] <3 sec [] >3 seconds (delayed) Neurologic: Sensation grossly intact [x] Psych: Mental Status Alert:: Yes[x] No[] Oriented []x0 []x1 []x2 [x]x3 Mood/Affect [x]Normal []Flat []Agitated []Depressed []Anxious []Calm []Sedated []NAD [facility] Labs within last 24 hours- BMP: Recent Labs 04/08/251604/09/2540804/10/25 0443 NA 142 142 142 K 3.4* 3.5 3.2* CL 99 98 95* CO2 33* 34* 35* BUN 26* 25* 32* CREATININE 1.78* 1.53* 1.65* CALCIUM 7.9* 8.1* 8.0* MG 1.6 1.7 1.7 PHOS -- 3.5 2.6 LFTS: Recent Labs 04/08/25 00104/09/25 0409 04/09/25 1019 04/10/25 0443 AST 21 18 -- 16 ALT <6 <6 -- <6 PROT 5.8* 5.7* 5.9* 5.5* BILITOT 0.6 0.7 -- 0.6 ALKPHOS 57 56 -- 50 Glucose: Recent Labs 04/08/25 00104/08/25 1631 04/09/25 04004/10/25 0443 GLUCOSE 99 -- 90 98 POCGLU -- 100 -- -- Procal: No results for input(s): PROCAL in the last 72 hours. CBC: Recent Labs 04/08/25 00104/08/25 1654 04/08/25 2053 04/09/25 0409 04/10/25 0443 WBC 13.0* -- -- 11.2* 12.4* HGB 7.2* < > 8.4* 7.5* 7.2* HCT 25.9* -- -- 27.7* 26.1* PLT 314 -- -- 279 294 MCV 80.2 -- -- 83.4 82.1 RDW 21.1* -- -- 21.8* 22.9* < > = values in this interval not displayed. ABGs: Recent Labs 04/08/25 1654 04/08/253 PHART 7.296* 7.332* ADW2TCR 80.1* 75.1* PO2ART 92.0 104.0 [id number] 38.2* 38.9* Q0SOLRLQ 96.1* 97.0 Lactic Acid: No lab exists for component: LACTA INR: No results for input(s): INR in the last 72 hours. Cardiac Injury Profile: No results for input(s): CKTOTAL, CKMB, TROPONINI in the last 72 hours. Labs in Last 3 months: Lab Results Component Value Date TSH 10.19 (H) 04/05/2025 Microbiology- Urine Cx: No components found for: LABURIN Blood Cx: No components found for: BC Sputum Cx: No components found for: RESPCULTURE Gram Stain: Lab Results Component Value Date LABGRAM 04/09/2025 Rare Polymorphonuclear leukocytes per low power field LABGRAM No organisms seen 04/09/2025 PNA PCR: No components found for: PNPCRPNL COVID19: No results found for: COVID19 Legionella Ag: No components found for: LEGIONELLAANTIGEN Strep Ag: No lab exists for component: STREPNEUMAGU Imaging- CXR (04/08/25) IMPRESSION: Findings suggesting pulmonary edema and heart failure with worsening edema and effusions. CT chest without contrast (04/06/25) Impression: Findings thought to most likely represent CHF. A superimposed infectious etiology is not excluded. The right pulmonary artery appears enlarged. CT abdomen/pelvis without contrast (04/06/25) IMPRESSION: 1. Mural thickening involving the cecum and terminal ileum. These findings could be due to neoplasm or enterocolitis. Recommend follow-up endoscopy. 2. Colonic diverticulosis. Assessment and Plan: Principal Problem: Acute congestive heart failure, unspecified heart failure type (HCC) Assessment: Acute on likely chronic hypoxemic/hypercarbic respiratory failure Acute HFrEF Pulmonary edema Pleural effusions Acute metabolic encephalopathy SIENA on CKD (unknown stage, unknown baseline Cr) Anemia, ?melena Mural thickening of cecum/terminal ileum Prior remote tobacco abuse Plan: - Transferred to ICU 04/08/25 for NIV support, tolerated well, repeat ABG improved, switched to BiPAP nightly which he tolerated, recommend chronic nocturnal NIV on eventual discharge - Continue IV Lasix 40 BID, benefits outweigh the risks of worsening renal function at this time, cardiology following - Underwent left thoracentesis (1000 mL removed) and right thoracentesis (600 mL removed) on 04/09/25 with notable improvement in respiratory status afterwards; pleural studies indicate transudate - Unable to place garcía, he can use the urinal, no indication for PRESSURE WASHER at this time (would be a poor dialysis candidate regardless) - Continue GDMT with Coreg, Lipitor, hold parameters for hydralazine - GI following, colonoscopy on hold for now, Hgb stable, trend CBC, transfuse as indicated, no further episodes of melena noted - Palliative care following, discussed with daughter and niece, patient will remain full code for now, overall prognosis seems poor - Stable for transfer GI Prophylaxis: pantoprazole 40mg daily DVT Prophylaxis: SCDs Code Status: Full Code Disposition: Transfer to [facility] with telemetry Critical care time spent reviewing labs/films, examining patient, collaborating with other physicians but excluding procedures for life threatening organ failure is 35 minutes. Precious Lewis MD Pulmonary & Critical Care Medicine [facility] Pager #[phone] [1] atorvastatin, 20 mg, Oral, Nightly carvedilol, 3.125 mg, Oral, BID WC furosemide, 40 mg, IntraVENous, BID hydrALAZINE, 25 mg, Oral, TID mupirocin, 1 Application, Nasal, BID pantoprazole, 40 mg, Oral, qAM AC polyethylene glycol (PEG) 3350, 17 g, Oral, Daily senna-docusate sodium, 2 tablet, Oral, BID [Held by provider] torsemide, 20 mg, Oral, Daily [2] [facility] Cardiology /Electrophysiology Progress Note HPI / Interval History: Mary Charles has no prior cardiac history (has not seen a physician for many years) who presented to [facility] with worsening SOB, hypoxia and edema. CXR with pulmonary edema. Hs-trop 29-28, pro-BNP 8438, creatinine 1.44, Hgb 5.6. He received 2 units pRBC and Hgb 7.4 this AM. He was seen by Dr. Scherer in consultation and TTE showed EF 22% with global hypokineses and 2+ MR. He is being diuresed with IV lasix and was started on GDMT. Due to anemia and frailty, he is recommended for medical management. He was also noted to have mural thickening involving the cecum and terminal ileum with concern for neoplasm or inflammation. GI is following and is recommending EGD and colonoscopy when stable from a cardiac standpoint. Interval notes reviewed. Patient with somnolence and increased dyspnea. Repeat CXR showing worsening of pleural effusions and pulmonary edema, ABG showing acute hypercarbia and transferred to the ICU for NIV. Today, sitting up in the bedside chair. Converses appropriately. Does appear tired. Family at bedside (brother, [id number], daughter). No significant complaints today. 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 accuracy - HF symptoms improving, but remains volume overloaded. CXR with moderate/large bilateral pleural effusions -s/p left thoracentesis (-1L), awaiting right thoracentesis this afternoon. -continue IV diuresis - continue coreg 3.125 mg po BID (holding due to low Bps) - continue hydralazine 25 mg po TID (holding due to lop Bps) - unable to titrate GDMT 2/2 low BP - no ASA 2/2 anemia - continue atorvastatin 20 mg po daily -not a good candidate for invasive work up at this point due to frailty, anemia. -discussed low EF and possibility of rhythm disturbance -palliative care on board to continue discussions of goals of car. CKD - creatinine 1.46 on admission, 1.63 > 1.78 > 1.53 Anemia - Hgb 5.6 on admission and 7.8 after 2 uPRBc >7.5 today - continue venofer - per primary team -no current plans for EGD/Colonoscopy until more stable Mural thickening cecum and terminal ileum per CT scan - GI following - they recommend EGD and colonoscopy once cardiac status improved Dispo: continue to follow Medications: atorvastatin, 20 mg, Oral, Nightly carvedilol, 3.125 mg, Oral, BID WC furosemide, 40 mg, IntraVENous, BID hydrALAZINE, 25 mg, Oral, TID mupirocin, 1 Application, Nasal, BID pantoprazole, 40 mg, Oral, qAM AC [Held by provider] torsemide, 20 mg, Oral, Daily Infusion Medications: Continuous Meds[1] Physical Examination: Vitals: 04/09/25 1003 04/09/25 1103 04/09/25 1202 04/09/25 1410 BP: (!) 88/59 107/70 90/58 94/71 BP Location: Patient Position: Pulse: 96 87 96 Resp: (!) 10 13 20 Temp: TempSrc: SpO2: 100% 98% 100% Weight: Height: Intake/Output Summary (Last 24 hours) at 04/09/2025 1539 Last data filed at 04/09/2025 1330 Gross per 24 hour Intake 986 ml Output 1185 ml Net -199 ml Patient Vitals for the past 168 hrs: Weight Weight Method 04/09/25 0026 209 lb 10.5 oz (95.1 kg) Bed scale 04/06/25 1217 200 lb (90.7 kg) -- 04/05/25 1608 200 lb (90.7 kg) Stated Physical Exam Vitals reviewed. Constitutional: Appearance: Normal appearance. HENT: Head: Normocephalic and atraumatic. Mouth/Throat: Mouth: Mucous membranes are moist. Pharynx: Oropharynx is clear. Neck: Vascular: No JVD. Cardiovascular: Rate and Rhythm: Normal rate and regular rhythm. Heart sounds: Normal heart sounds. Pulmonary: Effort: Pulmonary effort is normal. Breath sounds: Decreased air movement present. Examination of the right-lower field reveals decreased breath sounds. Examination of the left-lower field reveals decreased breath sounds. Decreased breath sounds present. Abdominal: General: Abdomen is protuberant. Palpations: Abdomen is soft. Tenderness: There is no abdominal tenderness. Musculoskeletal: Right lower le+ Pitting Edema present. Left lower le+ Pitting Edema present. Skin: General: Skin is warm. Coloration: Skin is pale. Comments: Lipoma to upper back Neurological: Mental Status: He is alert and oriented to person, place, and time. Psychiatric: Attention and Perception: Attention normal. Mood and Affect: Mood normal. Speech: Speech normal. Laboratory Tests: TROPONIN I, CONVENTIONAL SENSITIVITY No results found for: CKTOTAL, CKMB, CKMBINDEX, TROPONINI TROPONIN I, HIGH SENSITIVITY Troponin HS Serial Baseline Date Value Ref Range Status 04/05/2025 29 <=35 ng/L Final Comment: In individuals presenting with symptoms > 2h, a baseline troponin <= 5 ng/L suggests acute cardiac injury is unlikely and further serial testing is generally not indicated. 04/05/2025 30 <=35 ng/L Final Comment: In individuals presenting with symptoms > 2h, a baseline troponin <= 5 ng/L suggests acute cardiac injury is unlikely and further serial testing is generally not indicated. 2h Troponin HS (Serial 2nd Troponin) Date Value Ref Range Status 04/05/2025 28 <=35 ng/L Final Comment: 2h troponin (2nd troponin) samples collected between 1h 40 min and 2h and 20 min of the baseline collection time can be utilized to interpret delta troponins as per Summa algorithms. Samples collected outside this timeframe need to be interpreted clinically. Rising or falling troponin delta below 2 ng/L as compared to baseline value suggests that acute cardiac injury is unlikely. No results found for: TROPDELTBASE No results found for: TROPHS3 No results found for: TROPDELTSEC Recent Labs 04/07/25 0314 04/08/25 0017 04/09/25 0409 NA 143 142 142 K 3.6 3.4* 3.5 CL 98 99 98 CO2 31 33* 34* BUN 26* 26* 25* CREATININE 1.63* 1.78* 1.53* Recent Labs 04/07/25 0314 04/08/25 0017 04/08/25 1654 04/08/25205204/09/25 0409 WBC 11.5* 13.0* -- -- 11.2* HGB 7.4* 7.2* 8.6* 8.4* 7.5* HCT 27.2* 25.9* -- -- 27.7* MCV 80.0 80.2 -- -- 83.4 PLT 346 314 -- -- 279 No results for input(s): BNP in the last 72 hours. No results for input(s): TRIG, HDL, LDLCALC, CHOL in the last 72 hours. No results found for: LDLCHOLESTER Lab Results Component Value Date TSH 10.19 (H) 04/05/2025 EF BP Date Value Ref Range Status 04/06/2025 22 (A) 55 - 100 % Final 04/05/25 TRANSTHORACIC ECHOCARDIOGRAM (TTE) COMPLETE (CONTRAST/BUBBLE/3D PRN) 04/06/2025 12:42 PM (Final) Interpretation Summary Left Ventricle: Left ventricle is mildly dilated. Normal wall thickness. Severely reduced left ventricular systolic function. EF by 2D Simpsons Biplane is 22%. Severe global hypokinesis present. Right Ventricle: Not well visualized. Right ventricle size is normal. Normal systolic function. Mitral Valve: Moderate (2+) regurgitation. Tricuspid Valve: Severely elevated RVSP. RVSP is 66 mmHg. Left Atrium: Left atrium is mildly dilated. Pericardium: Left pleural effusion. Technically difficult study. Signed by: Thomas Hinton MD on 04/06/2025 12:42 PM Other reports reviewed: Cardiac Tests: Telemetry findings reviewed: SR with PAC EF BP Date Value Ref Range Status 04/06/2025 22 (A) 55 - 100 % Final LOURDES Zambrano CNP Date Of Service 04/09/2025 [1] Images from the original note were not included. PHYSICAL THERAPY [facility] Treatment Note Name/MRN: Mary Charles ([id number]) Date of : 1935 Age: 89 y.o. Room/Bed: 222-04/222-04 A Visit #: 1 out of 5 [facility]charge Recommendation[facility] Equipment Needed: No Assessment Pt demos improvement in functional mobility and progress toward therapy goals. Pt requires mod A x1 for sit->stand, min A for stand step transfers and min A for stand->sit. Initiated seated exercises for strengthening and muscular endurance. Pt is currently limited by endurance, fatigue and will benefit from acute skilled PT to address current deficits. Recommendation for SNF remains appropriate. Subjective Pt pleasant and agreeable to therapy session. Sitting EOB with RN. Per RN okay for therapy Pain: Pt denies any current pain. Medical Precautions: No active isolations Proper PPE donned/doffed in accordance with facility standards. Fall Risk: Tompkins Fall Risk Score: 50 (High Risk) Precautions/Restrictions: N/A Overall Cognitive Status: WFL Overall Orientation Status: Oriented x4 Family/Caregiver Present: none Objective Transfers/Mobility Sit to stand: Mod Assist Stand to sit: Min Assist Stand step: Min Assist Pt completes sit->stand from EOB to FWW requiring mod A x1 to elevate with cues for hand placement. Pt completes stand step transfer from EOB to recliner requiring min A x1 for FWW management and general stability with cues provided for technique. Pt returns to sitting at min A x1 to assist in controlled descent. Pt on room air initially during session with pulse oximeter disconnected by RN initially. Following transfer to chair, pulse ox reconnected and SpO2 read 80s dropping into 70s and upper 60s with good waveform. Pt not in acute distress. RN presented to room and placed on 4-6L NC. Pt recovered to 90s with cues for pursed lip breathing and ~1-2 minutes. Device(s) used: Front wheeled walker Balance During Session: Posture: fair Sitting - Static: SBA Sitting - Dynamic: SBA Standing - Static: Contact Guard, Min Assist Standing - Dynamic: Contact Guard, Min Assist Pt completes static and dynamic standing balance x2 trials with BUE on FWW requiring CGA to min A with verbal cues for upright posture with fair carryover. Exercises Exercises Hip Flexion: seated 2x10 BLE Knee Long Arc Quad: 2x10 BLE Ankle Pumps: 2x10 seated BLE Initiated LE exercises to promote LE strengthening and muscular endurance. Cues provided for technique with good carryover. Pt educated to complete 2x/day, pt verbalizes understanding. Plan Continue acute PT per plan of care. Safety/Education Safety Safety Devices in place: All fall risk precautions in place, call light within reach, left in chair, gait belt, patient at risk for falls, nurse notified, and no alarms engaged upon entry Restraints: N/A Education Education Given To: patient Education Provided: PT Role, PT Goals, Plan of Care, Transfer Training, Energy Conservation, Equipment, Benefits of Increasing Activity, and Breathing Techniques Education Method: Verbal and Demonstration Barriers to Learning: None Education Outcome: Verbalized Understanding, Demonstrated Understanding, and Continued Education Needed Outcome Measures AM-PAC AM-PAC Inpatient Mobility Raw Score (No Stairs) : 12 JH-HLM -HLM Score: Static standing (1 or more minutes) Goals Patient Stated Goal: pt did not state Encounter Problems Encounter Problems (Active) Balance Patient will maintain dynamic standing balance for 3-5 minutes with CGA in order to demonstrate decreased risk of falling. (Progressing) Start: 04/07/25 Expected End: 04/14/25 Exercise Patient will complete lower extremity exercises for 1-2 sets / 5-10 reps in order to improve strength and activity tolerance for mobility. (Progressing) Start: 04/07/25 Expected End: 04/14/25 Mobility Patient will ambulate 25 feet with CGA and least restrictive device in order to improve safety and independence with mobility. (Progressing) Start: 04/07/25 Expected End: 04/14/25 Transfers Patient will perform bed mobility with CGA in order to improve independence and prepare for out of bed mobility. (Not Addressed) Start: 04/07/25 Expected End: 04/14/25 Patient will complete functional transfer with least restrictive device with CGA in order to prepare for ambulation. (Progressing) Start: 04/07/25 Expected End: 04/14/25 Therapy Time Individual Co-treatment Time In 1328 Time Out 1346 Minutes 18 Timed Code Treatment Minutes: 16 Minutes (ther act x1) Lucrecia Cabral PT Spiritual Care Note [facility] Palliative Care Patient Name:Mary Charles Chief Complaint: Chief Complaint Patient presents with Leg Swelling Shortness of Breath Pt arrived to triage for shortness of breath and swelling legs. Pt endorses increased work of breath, weakness, confusion and no appetite. Reason for visit: Follow Up Services Provided To:patient Background and visit note: Follow up visit with patient. Patient was sitting up int he chair today. He shared he took a few steps. He lost his last year. He talked about missing her still. He said, It is hard. When I look at the pictures on the wall, or see her things around the house. I have so many memories. We talked about he normalcy of grief. He spoke about moving from [place] to [place] as a young man. We did some life review. No follow up. Is there spiritual distress? YES Comment: Grief Interventions: spiritual support provided, emotional support provided, empathetic listening, and validated feelings. Care Plan: No care plan. Follow Up: No follow up. Debriefed: with glass technician team. Carmelita Chairez 04/09/25 Images from the original note were not included. Palliative Care Progress Note Chief Complaint: Mary Charles is a 89 y.o. male with chief complaint of shortness of breath. Palliative Care provider will follow-up on . Assessment/Plan Goals of care Mary Charles retains capacity for medical decision-making -legal surrogate decision maker is daughter, Anahy Charles ( ) -see subjective for details of conversation -goals of care include: 1) improve respiratory status 2) discuss code status amongst family. 3)get back home (per daughter) AE CHFrEF -Cardiology following. -TTE revealing EF 22%, severe LV systolic dysfunction and moderate MR and severely elevated RVSP -Noted that he is not a candidate for other aggressive management 2/2 frailty. -Cardiology managing medications. -Appears that he really would be appropriate for hospice, however patient states he would like to continue workup and treatment as it stands now, daughter also in agreement that she would like to continue aggressive workup and treatment as well. -Monitor, continue to support. Continue goals of care conversations. No change in code status today, discussed with patient and daughter again. Dyspnea Acute hypercapnic respiratory failure -ongoing. 2/2 above AE CHF/newly diagnosed CHF. -NC in place now, NIV required overnight. -Increased CO2 which was likely reason for agitation/somnolence previously. Appears mentation is improving now. -s/p thoracentesis this morning for 1L-->cultures sent. -Patient states he does not wear O2 at home. -Monitor O2 sats. -Home O2 evaluation?? -Remains full code at this time. -Obesity hypoventilation syndrome?? Hx LEONA?? -Monitor. Acute anemia Hematochezia -Low Hgb-->5.5 on arrival, received PRBC. -Endorses dark stools at times. -Monitor H/H -Monitor labs. -GI following, continuing workup pending stability from cardiac standpoint-->recommendations EGD/colonoscopy. -CT findings of mural thickening of cecum and TI concerning for malignancy vs. Inflammation. -Monitor. Debility -PT/OT on board. -Patient states that he stood at bedside today with therapy. -Lives alone, may need more help at home vs. Facility placement. -Monitor. Depression Life change -Noted that about a year ago. -Patient lives alone now. Appears that he is depressed based on changes recorded in H/P -Lack of interest in doing things, appetite changes, change in health status-->??not taking care of himself. -Consider medication for mood? -Park Landscape Architect support requested. -Monitor. Hx CKD III -CrCl 33.6 mL/min. -Creatinine 1.53 BUN 25 as of this AM -As above has not seen physician/provider in several years. -Monitor fluid status, renally dose medications. -Monitor I/O -Avoid nephrotoxic medications. -??risk for cardiorenal syndrome. Monitor. Palliative Care Encounter -Code Status: Full Code - will continue to follow for ongoing monitoring of progression of Dyspnea as well as for appropriateness for hospice care due to CHF and Respiratory Failure Discharge planning: Not ready for discharge due to ongoing goals of care discussion Patient meets criteria for general inpatient hospice care: No Palliative Care IDT members involved: None Discussed the plan of care with the other interdisciplinary team (IDT) members of the Palliative Care and Hospice teams and Patient. Subjective: Subjective/Events Mary Charles is a 89 y.o. male seen today, in bed. ICU transfer. S/p thoracentsis this AM NIV overnight,now back on NC. Trending ABG, monitor for further retention of CO2. No pain reported. All other systems reviewed and negative. He is happy he got to have water today. Discussion with daughter Anahy this morning-->remains full code. Anahy expresses dissatisfaction around care received on 2E and not paying attention to the breathing issues, and just telling me he has sundowners and dementia States that I feel better with him in ICU now.Noted that she states he was taking care of himself and fully independent prior to this admission. Notes that she states she thinks he will need O2/PAP for the rest of his life. Discussed that we will continue to monitor heart function, kidney function, etc. Continue goals of care conversations. She is thankful for the call this morning. Will be in later to get full picture of what my dad looks like. Questions answered, concerns addressed, emotional support provided. Palliative Care Assessments: Goals of care: Continue Current Management Advanced Directives: No Known Advance Directive Functional Assessment: PPS 50% mainly sit/lie; can't do any work/extensive disease; considerable assistance; normal or reduced intake; full LOC or confusion Prognosis: depends upon goals of care Spiritual Assessment: No spiritual distress identified Bereavement and Grief: Social Work and Spiritual Needs Requested PDMP/OARRS Reviewed: No Report Available ROS: See palliative care ROS/ESAS below; All other systems were reviewed and are negative. [place] Symptom Assessment Score [place] Score Pain Score (if non-verbal, add .FLACC below) 0 Tiredness Score 0 Nausea Score 0 Depression Score 0 Anxiety Score 0 Drowsiness Score 0 Anorexia Score (0= eating well, 10= not eating) 7 Wellbeing Score (10= worst sense of well-being) 6 Constipation 0 Dyspnea Score (0= no shortness of breath) 4 Family Meeting: Participants: patient and child Family meeting was held to discuss:Goals of Care Objective: BP 97/54 Pulse 68 Temp 36.9 C (98.5 F) (Oral) Resp 14 Ht 5' 8 (1.727 m) Wt 209 lb 10.5 oz (95.1 kg) SpO2 98% BMI 31.88 kg/m Physical Exam Vitals and nursing note reviewed. Constitutional: General: He is not in acute distress. Appearance: He is obese. He is ill-appearing. HENT: Head: Normocephalic. Nose: Nose normal. Mouth/Throat: Mouth: Mucous membranes are moist. Pharynx: Oropharynx is clear. Eyes: General: Right eye: No discharge. Left eye: No discharge. Extraocular Movements: Extraocular movements intact. Pupils: Pupils are equal, round, and reactive to light. Cardiovascular: Rate and Rhythm: Normal rate. Pulses: Normal pulses. Heart sounds: No murmur heard. Pulmonary: Effort: Pulmonary effort is normal. No respiratory distress. Breath sounds: Normal breath sounds. No wheezing. Abdominal: General: Bowel sounds are normal. Palpations: Abdomen is soft. Musculoskeletal: Cervical back: Normal range of motion. Right lower leg: No edema. Left lower leg: No edema. Skin: General: Skin is warm and dry. Capillary Refill: Capillary refill takes less than 2 seconds. Coloration: Skin is pale. Neurological: Mental Status: He is alert and oriented to person, place, and time. Mental status is at baseline. Psychiatric: Mood and Affect: Mood normal. Behavior: Behavior normal. Thought Content: Thought content normal. Judgment: Judgment normal. Medication information: 24-hour PRN meds received: none in 24 hours. Results/Verification of Data Review Objective data reviewed (must include dates reviewed for labs, imaging reports and other specialty notes): BMP, CBC 04/09/25 ABG 04/09/25 Thoracentesis procedure note 04/09/25 Data in Support of Terminal Illness: Is patient hospice appropriate? Eligible, but not consistent with GOC at this time LOURDES Ordaz CNP Images from the original note were not included. OCCUPATIONAL THERAPY [facility]'s Name/MRN: Mary Charles ([id number]) Date: 04/09/2025 OT order received, chart review completed. Pt unavailable for evaluation upon arrival, with other providers x2 attempts this date. Will continue to monitor and re-attempt during current admission. Dora Huynh OT MICU Progress Note Mary Charles : 1935(89 y.o.) Date: April 09, 2025 Team: MICU Attending: Precious Lewis MD Subjective: Hospital Summary: Patient is a pleasant 89 year-old male with a history of chronic HFrEF and prior remote tobacco abuse who was admitted to [facility] 04/05/25 with shortness of breath and cough. 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 He also had intermittent melena, Hgb was 5.5 on presentation, required [address] chest showed pulmonary edema and effusions, CT abdomen/pelvis showed mural thickening of the cecum and terminal ileum. ICU consulted 04/08/25 for somnolence and increased dyspnea. Repeat CXR showed worsening effusions and pulmonary edema, ABG showed acute on possibly chronic hypercarbia. He also received PRN ativan the night before. He was transferred to ICU for NIV. Interval Events: Patient did well overnight. Diuresed well but unable to place garcía. Tolerated NIV, on nasal cannula this morning, states breathing is improved. He has no new symptoms. Mentation appears improved. Scheduled Meds:Scheduled Meds[1] Continuous Infusions:Continuous Meds[2] Objective: VITALS: BP 90/56 Pulse 74 Temp 36.8 C (98.3 F) (Axillary) Resp 17 Ht 1.727 m (5' 8) Wt 95.1 kg (209 lb 10.5 oz) SpO2 99% BMI 31.88 kg/m CURRENT PULSE OXIMETRY: SpO2: 99 % I/O: 04/08 0700 - 04/09 0659 In: 636 [P.O.:100; I.V.:536] Out: 35 [Urine:35] Ventilator Settings: FiO2 (%): 40 % Oxygen Delivery: O2 Flow Rate (L/min): 4 L/min Invasive Lines / Tubes / Drains: Peripheral IV 04/07/25 Anterior;Right Forearm (Active) Number of days: 1 Wounds: Wound/Incision 04/08/25 Skin Tear Forearm Anterior;Right (Active) Date First Assessed/Time First Assessed: 04/08/251814 Primary Wound Type: Skin Tear Location: Forearm Wound Location Orientation: Anterior;Right Wound Description (Comments): moist pink red Wound/Incision 04/08/25 Skin Tear Forearm Left;Proximal;Posterior (Active) Date First Assessed/Time First Assessed: 04/08/251899 Present on Original Admission: Yes Primary Wound Type: Skin Tear Location: Forearm Wound Location Orientation: Left;Proximal;Posterior Constitutional: General Appearance: []WDWN [x]Obese []Cachectic []Thin []ill Eyes: Inspection of Pupils/Irises: Pupils round and react: [x]Yes []No Sclera: []Icteric [x]Non-Icteric Inspection of Conjunctiva/Lids Conjunctiva: []Injected [x]Non-Injected Lids: [x]Intact []Lesion Present ENT/Mouth:: External Inspection of ears/nose [x] Normal [] Scar/Lesion/Mass Inspection of teeth/lips/gums: Dentition: [x][place] Teeth []Dentures Lips/Gums [x]Intact []Lesion Present Oropharynx exam: Mucosa [x][place] []Moist []Dry Neck: External Appearance: Overall Appearance:[x]Normal []Lesion/Mass/Crepitus Present Trachea midline [x]Yes []No Thyroid [x]Normal []Enlarged []Tender []Mass []Absent Respiratory:: Respiratory effort: []Labored [x]Non-Labored [] Mechanically-Ventilated Auscultation: []Clear [x]Crackles []Wheezes []Rhonchi Percussion/Palpation [x]Dullness []Hyperresonance []Tactile Fremitus Cardiovascular:: Auscultation: Rate [x]Regular []Irregular []Tachycardia []Bradycardia Rhythm: [x]Regular []Irregular Murmur: []Present [x]Absent Extremities: Peripheral Edema: [x]Present []Absent Varicosities: []Present [x]Absent GI: Abdomen: Palpation: [x]Soft []Firm []Tender [x]Non-Tender []Distended [x]Non-distended Mass: []Present [x]Absent Bowel Sounds [x]Present []Absent Hernia []Present [x]Absent Liver and Spleen: []Hepatosplenomegaly [x]Organomegaly Absent Musculoskeletal: Inspection of Digits and Nails: Cyanosis: []Present [x]Absent Clubbing: []Present [x]Absent Ischemia: []Present [x]Absent Infection: []Present [x]Absent Extremities: [x]NUNEZ Equally - Except ([]RUE []RLE []LUE []LLE) Strength/Tone: Intact and Normal ([]RUE []RLE []LUE []LLE) Skin: Inspection: Normal[x] Rash[] Lesion[] Ulcer[] Palpation: [x]Warm []Cool []Dry []Clammy []Nodules []Induration []Skin-tightening Cap-Refill [x] <3 sec [] >3 seconds (delayed) Neurologic: Sensation grossly intact [x] Psych: Mental Status Alert:: Yes[x] No[] Oriented []x0 []x1 []x2 [x]x3 Mood/Affect [x]Normal []Flat []Agitated []Depressed []Anxious []Calm []Sedated []NAD [facility] within last 24 hours- BMP: Recent Labs 04/07/2531304/08/251604/09/25 0409 NA 143 142 142 K 3.6 3.4* 3.5 CL 98 99 98 CO2 31 33* 34* BUN 26* 26* 25* CREATININE 1.63* 1.78* 1.53* CALCIUM 7.9* 7.9* 8.1* MG 1.7 1.6 1.7 PHOS -- -- 3.5 LFTS: Recent Labs 04/07/2531304/08/257 04/09/25 0409 AST 23 21 18 ALT <6 <6 <6 PROT 5.7* 5.8* 5.7* BILITOT 0.7 0.6 0.7 ALKPHOS 57 57 56 Glucose: Recent Labs 04/07/2531304/08/251604/08/25 1631 04/09/25 0409 GLUCOSE 88 99 -- 90 POCGLU -- -- 100 -- Procal: No results for input(s): PROCAL in the last 72 hours. CBC: Recent Labs 04/07/2531304/08/251604/08/25 1654 04/08/25 2053 04/09/25 0409 WBC 11.5* 13.0* -- -- 11.2* HGB 7.4* 7.2* 8.6* 8.4* 7.5* HCT 27.2* 25.9* -- -- 27.7* PLT 346 314 -- -- 279 MCV 80.0 80.2 -- -- 83.4 RDW 20.5* 21.1* -- -- 21.8* ABGs: Recent Labs 04/08/25 1654 04/08/252052 PHART 7.296* 7.332* [id number] 80.1* 75.1* PO2ART 92.0 104.0 [id number] 38.2* 38.9* [id number] 96.1* 97.0 Lactic Acid: No lab exists for component: LACTA INR: No results for input(s): INR in the last 72 hours. Cardiac Injury Profile: No results for input(s): CKTOTAL, CKMB, TROPONINI in the last 72 hours. Labs in Last 3 months: Lab Results Component Value Date TSH 10.19 (H) 04/05/2025 Microbiology- Urine Cx: No components found for: LABURIN Blood Cx: No components found for: BC Sputum Cx: No components found for: RESPCULTURE Gram Stain: No results found for: LABGRAM PNA PCR: No components found for: PNPCRPNL COVID19: No results found for: COVID19 Legionella Ag: No components found for: LEGIONELLAANTIGEN Strep Ag: No lab exists for component: STREPNEUMAGU Imaging- CXR (04/08/25) IMPRESSION: Findings suggesting pulmonary edema and heart failure with worsening edema and effusions. CT chest without contrast (04/06/25) Impression: Findings thought to most likely represent CHF. A superimposed infectious etiology is not excluded. The right pulmonary artery appears enlarged. CT abdomen/pelvis without contrast (04/06/25) IMPRESSION: 1. Mural thickening involving the cecum and terminal ileum. These findings could be due to neoplasm or enterocolitis. Recommend follow-up endoscopy. 2. Colonic diverticulosis. Assessment and Plan: Principal Problem: Acute congestive heart failure, unspecified heart failure type (HCC) Assessment: Acute on likely chronic hypoxemic/hypercarbic respiratory failure Acute HFrEF Pulmonary edema Pleural effusions Acute metabolic encephalopathy SIENA on CKD (unknown stage, unknown baseline Cr) Anemia, ?melena Mural thickening of cecum/terminal ileum Prior remote tobacco abuse Plan: - Transferred to ICU 04/08/25 for NIV support, tolerated well, repeat ABG improved, titrate pressures as indicated - Continue IV Lasix 40 BID, benefits outweigh the risks of worsening renal function at this time, cardiology following - Plan for diagnostic/therapeutic thoracentesis today - Unable to place garcía, plan for urology evaluation, strict I/O's, no indication for PRESSURE WASHER at this time (would be a poor dialysis candidate regardless) - Continue GDMT with Coreg, Lipitor, hold parameters for hydralazine - GI following, colonoscopy on hold for now, Hgb stable, trend CBC, transfuse as indicated, no further episodes of melena noted - Palliative care following, discussed with daughter and niece, patient will remain full code for now, overall prognosis seems poor GI Prophylaxis: pantoprazole 40mg daily DVT Prophylaxis: SCDs Code Status: Full Code Disposition: Potential transfer in the afternoon if patient continues to improve Critical care time spent reviewing labs/films, examining patient, collaborating with other physicians but excluding procedures for life threatening organ failure is 35 minutes. Precious Lewis MD Pulmonary & Critical Care Medicine [facility] Pager #[phone] [1] atorvastatin, 20 mg, Oral, Nightly carvedilol, 3.125 mg, Oral, BID WC furosemide, 40 mg, IntraVENous, BID hydrALAZINE, 25 mg, Oral, TID mupirocin, 1 Application, Nasal, BID pantoprazole, 40 mg, Oral, qAM AC [Held by provider] torsemide, 20 mg, Oral, Daily [2] Asked to see patient for lethargy, somnolence, increased work of breathing and increased SOB. He is on oxygen. He has an increased RR. He is lethargic but does stay awake to answer questions. Lungs with rales and rhonchi HRRR + Edema VS reviewed Labs reviewed. CXR done and ABG done. A-acute on chronic respiratory failure with CO2 retention P- discussed with CCM who will evaluate. Likely move to ICU for NIV overnight. 33 minutes of critical care time excluding procedures D/w Yamilka, PRESSURE WASHER, Rosangela, RN and family at bedside. Images from the original note were not included. OCCUPATIONAL THERAPY [facility] Name/MRN: Mary Charles ([id number]) Date: 04/08/2025 Therapy eval and treat orders received. Chart review complete. Upon arrival, pt sleeping and difficult to arouse. Pt briefly opens eyes to tactile and verbal stimulation, however quickly falls back asleep and does not follow cues / commands this date. Pt with no signs of distress at this time. Pt is not appropriate for therapy evaluation this date. Will continue to follow and attempt as appropriate during this admission. Jose Guadalupe Gongora OT [facility] Attending GI Progress Note SUBJECTIVE: lethargic, agitated previously with chest discomfort. Given ativan. Cv re-eval underway Medications @MEDCMED@ OBJECTIVE VITALS: BP 126/74 (BP Location: Left arm, Patient Position: Sitting) Pulse 98 Temp 36.3 C (97.3 F) (Temporal) Resp 21 Ht 1.727 m (5' 8) Wt 90.7 kg (200 lb) SpO2 96% BMI 30.41 kg/m TEMPERATURE: Current - Temp: 36.3 C (97.3 F); Max - Temp Av.8 C (98.2 F) Min: 36.3 C (97.3 F) Max: 37.1 C (98.7 F) RESPIRATIONS RANGE: Resp Av.5 Min: 18 Max: 21 PULSE RANGE: Pulse Av.4 Min: 59 Max: 98 BLOOD PRESSURE RANGE: Systolic (24hrs), Av , Min:82 , Max:126 ; Diastolic (24hrs), Av, Min:51, Max:88 PULSE OXIMETRY RANGE: SpO2 Av.8 % Min: 82 % Max: 98 % 24HR INTAKE/OUTPUT: Intake/Output Summary (Last 24 hours) at 04/08/2025 1144 Last data filed at 04/07/2025 1950 Gross per 24 hour Intake 240 ml Output -- Net 240 ml GENERAL: Pleasant and NAD. Lethargic, awakens to prodding HEENT: NCAT, PERRLA, EOMI, Scleral anicteric. Oropharhynx clear with no erythema or exudate. Neck supple, no cervical LAD or thyromegaly. CV: RRR, NL S1/S2, no murmurs. Distal pulses palpable and equal b/l. LUNGS: CTA b/l. Normal percussion and palpation. No W/R/R. ABD: + BS, soft, non-tender and non-distended. No hepatosplenomegaly. No mass felt. No rebound or guarding. EXT: No C/C/E. No muscle atrophy. SKIN: No skin lesion or breakdown. NEURO: A&O x 3, CN II-XII grossly intact. No asterixis. Data Recent blood work, radiologic study and endoscopic study were reviewed with the patient. CBC: Recent Labs 04/06/25 0334 04/07/25 0314 04/08/25 0017 WBC 10.3 11.5* 13.0* HGB 7.6* 7.4* 7.2* HCT 27.2* 27.2* 25.9* PLT 344 346 314 HEPATIC: Recent Labs 04/07/25 0314 04/08/25 0017 AST 23 21 ALT <6 <6 BILITOT 0.7 0.6 ALKPHOS 57 57 LIPASE/AMYLASE: No results for input(s): AMYLASE, LIPASE in the last 72 hours. LACTATE: No lab exists for component: LACTA BNP: Recent Labs 04/05/25 1617 BNP 8,438* INR: No results for input(s): INR in the last 72 hours. ASSESSMENT AND PLAN 1. Microcytic anemia - hbg stable. Plans on hold for inpatient colon/EGD given events. Continue cv eval, schedule opt once stable 2. Abnormal CT - TI and cecal changes, possibly post infectious, r/o colitis/neoplasia. See above 3. Dysphagia - resolved Will sign off, available if needed. Opt gi follow up with [facility] GI Hospitalist Progress Note 04/08/[id number]: Please secure chat me for patient care issues. [phone]: Please secure chat [facility] Hospitalist for any issues. Subjective: Admit Date: 04/05/2025 PCP: No primary care provider on file. Room#: B2-254/B2254 A Brief History: Patient is a 89-year-old gentleman admitted for worsening shortness of breath, he was being treated for CHF exacerbation, not seen a physician for a while, has history of anemia and black stools H&H low on admission. Consults : Palliative care, Cardiology and GI Chief Complaint : Patient agitated last night, given 1 dose of lorazepam.... Adult diet Clear liquid @[id number]@ 24HR INTAKE/OUTPUT: Intake/Output Summary (Last 24 hours) at 04/08/2025 1112 Last data filed at 04/07/2025 1950 Gross per 24 hour Intake 240 ml Output -- Net 240 ml Past Medical History: Medical History[1] LABS: CBC: Recent Labs 04/06/2533304/07/2531304/08/2516 WBC 10.3 11.5* 13.0* RBC 3.46* 3.40* 3.23* HGB 7.6* 7.4* 7.2* HCT 27.2* 27.2* 25.9* MCV 78.6 80.0 80.2 RDW 20.5* 20.5* 21.1* PLT 344 346 314 BMP: Recent Labs 04/06/2533304/07/2531304/08/25 001 NA 143 143 142 K 4.2 3.6 3.4* CL 104 98 99 CO2 26 31 33* BUN 24* 26* 26* CREATININE 1.44* 1.63* 1.78* GLUCOSE 98 88 99 CALCIUM 8.2* 7.9* 7.9* ANIONGAP 13 14* 10 LIVER PROFILE: Recent Labs 04/06/2533304/07/2531304/08/25 001 AST 25 23 21 ALT 6 <6 <6 BILITOT 1.7* 0.7 0.6 ALKPHOS 63 57 57 PROT 6.1* 5.7* 5.8* PT/INR: No results for input(s): PROTIME, INR in the last 72 hours. CARDIAC ENZYMES: No results for input(s): TROPONINI in the last 72 hours. Procalcitonin: No results found for: PROCAL COVID-19 PCR: No results for input(s): COVID19 in the last 72 hours. Objective: Vitals: BP 126/74 (BP Location: Left arm, Patient Position: Sitting) Pulse 98 Temp 36.3 C (97.3 F) (Temporal) Resp 21 Ht 5' 8 (1.727 m) Wt 200 lb (90.7 kg) SpO2 96% BMI 30.41 kg/m Pulse Ox: SpO2 Av.8 % Min: 82 % Max: 98 % Physical Exam Constitutional: Appearance: He is obese and is sleeping Cardiovascular: Rate and Rhythm: Regular rhythm. Tachycardia present. Pulses: Normal pulses. Heart sounds: Normal heart sounds, S1 normal and S2 normal. Pulmonary: Effort: Tachypnea present. Breath sounds: Decreased air movement present. Abdominal: General: Bowel sounds are normal. Palpations: Abdomen is soft. Musculoskeletal: Right lower le+ Pitting Edema present. Left lower le+ Pitting Edema present. Medications: Continuous Meds[2] Scheduled Meds[3] Assessment Acute Problems : Acute on chronic CHF exacerbation with severely reduced left ventricular ejection fraction Acute hypoxic respiratory failure due to above Iron deficiency anemia-acute on chronic status post PRBC transfusion Elevated TSH CKD stage IIIb Class I obesity Possible obesity hypoventilation syndrome Sundowning syndrome Stable chronic problems affecting care, new non-acute diagnoses: Medical Decision Making 04/06 -on Lasix 40 mg IV twice daily, O2 supplementation, daily weights and intake and output, monitor O2 sats, cardiology following, Hydralazine/carvedilol And low-dose statin, not on aspirin due to anemia/bleeding risk 2D echo showed severely reduced left ventricular ejection fraction of 22% with severe global hypokinesis Maintain potassium more than 4 and magnesium more than 2 04/07 - appreciate cardiology and GI inputs, on iron IV, continue to monitor H&H, O2 supplementation via nasal cannula 93% on 4 L, monitor weights and intake and output, Lasix 40 mg IV twice daily extra 20 mg IV as needed, low-salt diet, GI workup with EGD and colonoscopy once respiratory status stable, continue PT and OT assessments Palliative consulted for goals of care, discussed with daughter Anahy at bedside, explained the terms of full code and DNR CCA patient currently a full code 04/08 -received lorazepam last night, sleeping this morning,Appreciate cardiology and GI inputs, possible GI workup as outpatient due to unstable respiratory status, creatinine worsening due to IV diuresis, urine output 2520 ml, O2 supplementation, palliative following as well, discussed with daughter at bedside, PT and OT assessments -am labs, replace lytes prn -increase activity -DVT prophylaxis: [] Lovenox [] Heparin [] SCDs [x] Encourage ambulation [] Already on Anticoagulation - GI prophylaxis : Anticipated Discharge Date -April 11 or - Location -possible [facility] facility - Pending the following -clinical improvement, GI workup and PT and OT assessments Total time spent (which include face to face and non face to face encounters) : 53 minutes Toxic drug monitoring/narrow therapeutic index drug monitoring : # Drug name : # Route administered : # Method of monitoring : Extended Emergency Contact Information Primary Emergency Contact: ANAHY CHARLES Mobile Relation: Daughter Preferred language: Iranian Mine Utility Operator needed? No Westley Martinez MD Division of Hospitalist Medicine Acute care contra [facility] PAGER: [employer] chat [1] History reviewed. No pertinent past medical history. [2] [3] atorvastatin, 20 mg, Oral, Nightly carvedilol, 3.125 mg, Oral, BID WC [Held by provider] furosemide, 40 mg, IntraVENous, BID hydrALAZINE, 25 mg, Oral, TID iron sucrose, 200 mg, IntraVENous, q24h pantoprazole, 40 mg, Oral, qAM AC [facility] [place] Cardiology /Electrophysiology Progress Note HPI / Interval History: Mary Charles has no prior cardiac history (has not seen a physician for many years) who presented to [facility] with worsening SOB, hypoxia and edema. CXR with pulmonary edema. Hs-trop 29-28, pro-BNP 8438, creatinine 1.44, Hgb 5.6. He received 2 units pRBC and Hgb 7.4 this AM. He was seen by Dr. Scherer in consultation and TTE showed EF 22% with global hypokineses and 2+ MR. He is being diuresed with IV lasix and was started on GDMT. Due to anemia and frailty, he is recommended for medical management. He was also noted to have mural thickening involving the cecum and terminal ileum with concern for neoplasm or inflammation. GI is following and is recommending EGD and colonoscopy when stable from a cardiac standpoint. Today, he is lethargic and difficult to arouse. He was agitated overnight and received IV ativan. He is sleeping and appears in no acute distress. 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, Stage C, Class III, EF 22% per TTE 03/2025 - daily weight unchanged (if accurate) - I&O -970 mL since admission (if accurate) - HF symptoms improving, but remains volume overloaded - hold IV lasix due to SIENA and possible prep for colonoscopy, will re-evaluate in AM for need to resume IV lasix vs start po - continue coreg 3.125 mg po BID - continue hydralazine 25 mg po TID - unable to titrate GDMT 2/2 low BP - no ASA 2/2 anemia - continue atorvastatin 20 mg po daily CKD - creatinine 1.46 on admission, 1.63 yesterday and 1.78 today - hold IV lasix as above Anemia - Hgb 5.6 on admission and 7.8 today after 2 units pRBC - continue venofer - per primary team Mural thickening cecum and terminal ileum per CT scan - GI following - they recommend EGD and colonoscopy once cardiac status improved (given his lethargy this AM, I am not sure he will tolerate prep today) Dispo: continue to follow Addendum 1100: discussed with GI. No EGD/colonoscopy tomorrow. Patient has run NSVT. He is sleeping and asymptomatic. K+ 3.4 and Mg 1.6. Will order replacement. Addendum 1500: reviewed with Dr. Scherer. Will start torsemide 20 mg po daily (he is diuretic naive) tomorrow. Medications: atorvastatin, 20 mg, Oral, Nightly carvedilol, 3.125 mg, Oral, BID WC [Held by provider] furosemide, 40 mg, IntraVENous, BID hydrALAZINE, 25 mg, Oral, TID iron sucrose, 200 mg, IntraVENous, q24h pantoprazole, 40 mg, Oral, qAM AC Infusion Medications: Continuous Meds[1] Physical Examination: Vitals: 04/07/25 2340 04/07/25 2349 04/08/25 0309 04/08/25 0809 BP: 107/63 107/63 123/76 109/52 BP Location: Left arm Left arm Patient Position: Lying Sitting Pulse: 76 76 87 67 Resp: 20 18 20 Temp: 36.7 C (98 F) 36.9 C (98.4 F) 36.9 C (98.5 F) TempSrc: Temporal Temporal Temporal SpO2: 91% 91% 95% 98% Weight: Height: Intake/Output Summary (Last 24 hours) at 04/08/2025 0951 Last data filed at 04/07/2025 1950 Gross per 24 hour Intake 240 ml Output -- Net 240 ml Patient Vitals for the past 168 hrs: Weight Weight Method 04/06/25 1217 200 lb (90.7 kg) -- 04/05/25 1608 200 lb (90.7 kg) Stated Physical Exam Vitals reviewed. Constitutional: Appearance: Normal appearance. HENT: Head: Normocephalic and atraumatic. Mouth/Throat: Mouth: Mucous membranes are moist. Pharynx: Oropharynx is clear. Neck: Vascular: No JVD. Cardiovascular: Rate and Rhythm: Normal rate and regular rhythm. Heart sounds: Normal heart sounds. Pulmonary: Effort: Pulmonary effort is normal. Breath sounds: Normal breath sounds. Abdominal: General: Abdomen is protuberant. Palpations: Abdomen is soft. Tenderness: There is no abdominal tenderness. Musculoskeletal: Right lower le+ Pitting Edema present. Left lower le+ Pitting Edema present. Skin: General: Skin is warm. Coloration: Skin is pale. Neurological: Mental Status: He is alert and oriented to person, place, and time. Psychiatric: Attention and Perception: Attention normal. Mood and Affect: Mood normal. Speech: Speech normal. Laboratory Tests: TROPONIN I, CONVENTIONAL SENSITIVITY No results found for: CKTOTAL, CKMB, CKMBINDEX, TROPONINI TROPONIN I, HIGH SENSITIVITY Troponin HS Serial Baseline Date Value Ref Range Status 04/05/2025 29 <=35 ng/L Final Comment: In individuals presenting with symptoms > 2h, a baseline troponin <= 5 ng/L suggests acute cardiac injury is unlikely and further serial testing is generally not indicated. 04/05/2025 30 <=35 ng/L Final Comment: In individuals presenting with symptoms > 2h, a baseline troponin <= 5 ng/L suggests acute cardiac injury is unlikely and further serial testing is generally not indicated. 2h Troponin HS (Serial 2nd Troponin) Date Value Ref Range Status 04/05/2025 28 <=35 ng/L Final Comment: 2h troponin (2nd troponin) samples collected between 1h 40 min and 2h and 20 min of the baseline collection time can be utilized to interpret delta troponins as per [employer] algorithms. Samples collected outside this timeframe need to be interpreted clinically. Rising or falling troponin delta below 2 ng/L as compared to baseline value suggests that acute cardiac injury is unlikely. No results found for: TROPDELTBASE No results found for: TROPHS3 No results found for: TROPDELTSEC Recent Labs 04/05/25 16104/06/25 0334 04/07/254 04/08/25 0017 NA 140 143 143 142 K 4.5 4.2 3.6 3.4* CL 105 104 98 99 CO2 27 26 31 33* BUN 24* 24* 26* 26* CREATININE 1.46* 1.44* 1.63* 1.78* Recent Labs 04/05/25161604/06/25 0334 04/07/254 04/08/25 0017 WBC 10.0 10.3 11.5* 13.0* HGB 5.5* 7.6* 7.4* 7.2* HCT 20.7* 27.2* 27.2* 25.9* MCV 73.1* 78.6 80.0 80.2 PLT 358 344 346 314 Recent Labs 04/05/251616 BNP 8,438* Recent Labs 04/05/252025 TRIG 60 HDL 29* LDLCALC 48 CHOL 89 No results found for: LDLCHOLESTER Lab Results Component Value Date TSH 10.19 (H) 04/05/2025 EF BP Date Value Ref Range Status 04/06/2025 22 (A) 55 - 100 % Final 04/05/25 TRANSTHORACIC ECHOCARDIOGRAM (TTE) COMPLETE (CONTRAST/BUBBLE/3D PRN) 04/06/2025 12:42 PM (Final) Interpretation Summary Left Ventricle: Left ventricle is mildly dilated. Normal wall thickness. Severely reduced left ventricular systolic function. EF by 2D Simpsons Biplane is 22%. Severe global hypokinesis present. Right Ventricle: Not well visualized. Right ventricle size is normal. Normal systolic function. Mitral Valve: Moderate (2+) regurgitation. Tricuspid Valve: Severely elevated RVSP. RVSP is 66 mmHg. Left Atrium: Left atrium is mildly dilated. Pericardium: Left pleural effusion. Technically difficult study. Signed by: Thomas Hinton MD on 04/06/2025 12:42 PM Other reports reviewed: Cardiac Tests: Telemetry findings reviewed: SR with PAC EF BP Date Value Ref Range Status 04/06/2025 22 (A) 55 - 100 % Final LOURDES Benson CNP Date Of Service 04/08/2025 [1] [facility] Attending GI Progress Note SUBJECTIVE: denies melena/hematochesia. Breathing better, completing sentences Medications @MEDCMED@ OBJECTIVE VITALS: BP 112/88 Pulse 59 Temp 36.7 C (98 F) (Temporal) Resp 18 Ht 1.727 m (5' 8) Wt 90.7 kg (200 lb) SpO2 96% BMI 30.41 kg/m TEMPERATURE: Current - Temp: 36.7 C (98 F); Max - Temp Av.5 C (97.7 F) Min: 36.2 C (97.2 F) Max: 36.9 C (98.5 F) RESPIRATIONS RANGE: Resp Av.9 Min: 16 Max: 20 PULSE RANGE: Pulse Av.1 Min: 59 Max: 82 BLOOD PRESSURE RANGE: Systolic (24hrs), Av , Min:93 , Max:117 ; Diastolic (24hrs), Av, Min:48, Max:88 PULSE OXIMETRY RANGE: SpO2 Av.9 % Min: 93 % Max: 96 % 24HR INTAKE/OUTPUT: Intake/Output Summary (Last 24 hours) at 04/07/2025 1446 Last data filed at 04/06/2025 2241 Gross per 24 hour Intake 90 ml Output 120 ml Net -30 ml GENERAL: Pleasant and NAD. HEENT: NCAT, PERRLA, EOMI, Scleral anicteric. Oropharhynx clear with no erythema or exudate. Neck supple, no cervical LAD or thyromegaly. CV: RRR, NL S1/S2, no murmurs. Distal pulses palpable and equal b/l. LUNGS: CTA b/l. Normal percussion and palpation. No W/R/R. ABD: + BS, soft, non-tender and non-distended. No hepatosplenomegaly. No mass felt. No rebound or guarding. EXT: No C/C/E. No muscle atrophy. SKIN: No skin lesion or breakdown. NEURO: A&O x 3, CN II-XII grossly intact. No asterixis. Data Recent blood work, radiologic study and endoscopic study were reviewed with the patient. CBC: Recent Labs 04/05/25 1617 04/06/25 0334 04/07/25 0314 WBC 10.0 10.3 11.5* HGB 5.5* 7.6* 7.4* HCT 20.7* 27.2* 27.2* PLT 358 344 346 HEPATIC: Recent Labs 04/06/25 0334 04/07/25 0314 AST 25 23 ALT 6 <6 BILITOT 1.7* 0.7 ALKPHOS 63 57 LIPASE/AMYLASE: No results for input(s): AMYLASE, LIPASE in the last 72 hours. LACTATE: No lab exists for component: LACTA BNP: Recent Labs 04/05/25 1617 BNP 8,438* INR: No results for input(s): INR in the last 72 hours. ASSESSMENT AND PLAN 1. Microcytic anemia - hbg stable. Plans for c/e saturday 2. Abnormal CT - TI and cecal changes, possibly post infectious, r/o colitis/neoplasia. See above 3. Dysphagia - resolved Spiritual Care Note [facility] Palliative Care Patient Name:Mary Charles Chief Complaint: Chief Complaint Patient presents with Leg Swelling Shortness of Breath Pt arrived to triage for shortness of breath and swelling legs. Pt endorses increased work of breath, weakness, confusion and no appetite. Reason for visit: Park Landscape Architect Consult Services Provided To:patient and family Background and visit note: Patient was glass technician consult. Introduced myself and pastoral care to patient and family by bed. He was doing good. He said, I took a couple of steps. He is hoping to take more each day. Will follow up. Is there spiritual distress? NO Comment: Interventions: Establish rapport. Care Plan: build trust, life review, and connect to higher power. Follow Up: PRN and when patient is able. Debriefed: with glass technician team. Carmelita Chairez 04/07/25 Images from the original note were not included. PHYSICAL THERAPY [facility] Initial Evaluation Name/MRN: Mary Charles ([id number]) Evaluation Date: 04/07/2025 Date of : 1935 Admission Date: 04/05/2025 3:55 PM Age: 89 y.o. Room/Bed: B2-254/B2-254 A [facility]charge [facility]ation[facility] Equipment Needed: No Assessment IMPRESSION: Pt is a 89 y.o. male admitted to the ED 04/05 for SOB. Found to have acute CHF. Pt was IND with rollator and environmental surfaces prior to admittance with assist for ADLs. Pt is currently SBA for supine to sit, Mod A for sit to supine, Mod A for transfers, and Mod A for side steps with FWW. Pt is limited by weakness and SOB. Pt would benefit from acute skilled PT treatment until discharge. Recommend SNF. Admitting Diagnosis: acute CHF Prognosis: fair Performance Deficits /Impairments: Increased Pain, Decreased Functional Mobility, Decreased Strength, Decreased Endurance, and Decreased Balance Decision Making: Medium Complexity Subjective Pt is pleasant and agreeable to therapy Okayed for therapy per RN Pain: pt reports butt pain due to sitting in bed however pt did not rank Past Medical History: Medical History[1] Past Surgical History: Surgical History[2] Admission Diagnosis: Patient Active Problem List Diagnosis Date Noted Acute congestive heart failure, unspecified heart failure type (HCC) 04/05/2025 Medical Precautions: No active isolations Proper PPE donned/doffed in accordance with facility standards. Fall Risk: Tompkins Fall Risk Score: 50 (High Risk) Precautions/Restrictions: Lines/Drains/Airways: NC Family/Caregiver Present: child(jono) Overall Cognitive Status: WFL Overall Orientation Status: Oriented x4 Vision: Not Assessed Hearing: normal Social/Functional History Patient admitted from home. Lives With: Alone Type of Home: single family home Home Layout: Single Level Home Home Access: Stairs to Enter with Rails (# of stairs: 3) Bathroom Shower/Tub: Shower Chair without Back, Walk in Shower, and Grab Bars Toilet: Standard Home Equipment: rollator Homemaking Responsibilities: Needs Assist Receives Help From: Family Active Senior Mortgage Underwriter: No Prior Level of Function Prior Level of ADL Function: Required Assist for showering and pt wipes himself down with wash cloth IND Prior Level of Mobility: Independent; Device: Rollator Prior Level of Transfers: Independent Objective Lower Extremity Assessment AROM: WFL Strength: Exceptions: decreased strength noted during functional mobility Balance: Balance During Session: Posture: fair Sitting - Static: SBA Sitting - Dynamic: SBA Standing - Static: Mod Assist Standing - Dynamic: Mod Assist Pt is Mod A for dynamic standing balance with FWW when stepping outside of [place]. Bed Mobility: Supine to sit: SBA Sit to supine: Mod Assist Pt is SBA for supine to sit. HOB elevated. Verbal cues provided for sequencing. Pt demos good carryover. Increased time and effort to complete. Pt is Mod A for sit to supine. Verbal cues provided for sequencing. Mod A required for BLE management into bed. Increased time and effort to complete. Transfers Sit to stand: Mod Assist Stand to sit: Mod Assist Side step: Mod A Pt is Mod A for sit <> stand x2 trials from EOB with FWW. Verbal cues provided for hand placement, anterior weight shift, and upright posture. Pt demos good carryover. Mod A required to elevate into standing and avoid plopping. Pt is Mod A for side step x3 steps to the left with FWW. Verbal cues provided for sequencing. Mod A required for weight shift and FWW management. Pt demos fair carryover. Noted pt's knees beginning to buckle at end of side steps. Pt reports fatigue and weakness at end of session. Pt SpO2 above 93% throughout session. RN notified. Ambulation Did not assess this session. Outcome Measures AM-PAC How much HELP from another person do you currently need Turning from your back to your side while in a flat bed without using bedrails?: A Little Moving from lying on your back to sitting on the side of a flat bed without using bedrails?: A Little Moving to and from a bed to a chair (including a wheelchair)?: A Lot Standing up from a chair using your arms (wheelchair or bedside chair)?: A Lot Walking in a hospital room?: Total Stair climbing assessed?: No AM-PAC Inpatient Mobility Raw Score (No Stairs) : 11 [facility] Score: Static standing (1 or more minutes) Plan Pt would benefit from skilled acute PT services to address Strengthening, Gait Training, Balance Training, Functional Mobility Training, Endurance Training, Safety Education and Training, Stair Training, Pain Management, Equipment Evaluation/Education, Patient/Caregiver Training, and Positioning. Frequency: 5 visitsduring current hospital admission or until additional recommendations are made Barriers: Pain, Impaired balance, Lower extremity weakness, Decreased endurance, and Stairs at home Safety/Education Safety Safety Devices in place: All fall risk precautions in place, call light within reach, left in bed, gait belt, nurse notified, and no alarms engaged upon entry Restraints: No Education Education Given To: patient and daughter Education Provided: PT Role, PT Goals, Transfer Training, Equipment, Fall Prevention Education, and Benefits of Increasing Activity Education Method: Verbal Barriers to Learning: None Education Outcome: Verbalized Understanding, Demonstrated Understanding, and Continued Education Needed Goals Patient Stated Goal: to decrease pain Encounter Problems Encounter Problems (Active) Balance Patient will maintain dynamic standing balance for 3-5 minutes with CGA in order to demonstrate decreased risk of falling. Start: 04/07/25 Expected End: 04/14/25 Exercise Patient will complete lower extremity exercises for 1-2 sets / 5-10 reps in order to improve strength and activity tolerance for mobility. Start: 04/07/25 Expected End: 04/14/25 Mobility Patient will ambulate 25 feet with CGA and least restrictive device in order to improve safety and independence with mobility. Start: 04/07/25 Expected End: 04/14/25 Transfers Patient will perform bed mobility with CGA in order to improve independence and prepare for out of bed mobility. Start: 04/07/25 Expected End: 04/14/25 Patient will complete functional transfer with least restrictive device with CGA in order to prepare for ambulation. Start: 04/07/25 Expected End: 04/14/25 Therapy Time Individual Co-Treatment Co-Evaluation Time In 1031 Time Out 1048 Minutes 17 RADHA Awan Patient's Physical Therapy Plan of Care supervision is transferred to a [facility] Physical Therapist. Goals and/or treatment plan was established in collaboration with patient/family/other representatives. [1] History reviewed. No pertinent past medical history. [2] History reviewed. No pertinent surgical history. Cosigned by Lucrecia Cabral PT at 04/07/2025 4:00 PM EDT Hospitalist Progress Note 04/07/2025 [phone]: Please secure chat me for patient care issues. [phone]: Please secure chat [facility] Hospitalist for any issues. Subjective: Admit Date: 04/05/2025 PCP: No primary care provider on file. Room#: B2254/B2254 A Brief History: Patient is a 89-year-old gentleman admitted for worsening shortness of breath, he was being treated for CHF exacerbation, not seen a physician for a while, has history of anemia and black stools H&H low on admission. Consults : Cardiology Chief Complaint : Patient feels slightly better with breathing, no dark stools/rectal bleeding since admission, daughter at bedside Blood pressure 93/48, heart rate 66 H&H 7.4/27.2 Adult diet Regular; No Added Salt (3-4 gm) @[id number]@ 24HR INTAKE/OUTPUT: Intake/Output Summary (Last 24 hours) at 04/07/2025 1133 Last data filed at 04/06/2025 2241 Gross per 24 hour Intake 210 ml Output 1720 ml Net -1510 ml Past Medical History: Medical History[1] LABS: CBC: Recent Labs 04/05/25161604/06/25 03304/07/25313 WBC 10.0 10.3 11.5* RBC 2.83* 3.46* 3.40* HGB 5.5* 7.6* 7.4* HCT 20.7* 27.2* 27.2* MCV 73.1* 78.6 80.0 RDW 19.9* 20.5* 20.5* PLT 358 344 346 BMP: Recent Labs 04/05/25161604/06/2533304/07/25313 NA 140 143 143 K 4.5 4.2 3.6 CL 105 104 98 CO2 27 26 31 BUN 24* 24* 26* CREATININE 1.46* 1.44* 1.63* GLUCOSE 108 98 88 CALCIUM 8.4* 8.2* 7.9* ANIONGAP 8 13 14* LIVER PROFILE: Recent Labs 04/05/25161604/06/25 03304/07/25 031 AST 22 25 23 ALT 7 6 <6 BILITOT 0.5 1.7* 0.7 ALKPHOS 65 63 57 PROT 6.4 6.1* 5.7* PT/INR: No results for input(s): PROTIME, INR in the last 72 hours. CARDIAC ENZYMES: No results for input(s): TROPONINI in the last 72 hours. Procalcitonin: No results found for: PROCAL COVID-19 PCR: No results for input(s): COVID19 in the last 72 hours. Objective: Vitals: BP (!) 93/48 (BP Location: Left arm, Patient Position: Sitting) Pulse 66 Temp 36.6 C (97.9 F) (Temporal) Resp 20 Ht 5' 8 (1.727 m) Wt 200 lb (90.7 kg) SpO2 93% BMI 30.41 kg/m Pulse Ox: SpO2 Av.5 % Min: 93 % Max: 99 % Physical Exam Constitutional: Appearance: He is obese. He is ill-appearing. Cardiovascular: Rate and Rhythm: Regular rhythm. Tachycardia present. Pulses: Normal pulses. Heart sounds: Normal heart sounds, S1 normal and S2 normal. Pulmonary: Effort: Tachypnea present. Breath sounds: Decreased air movement present. Abdominal: General: Bowel sounds are normal. Palpations: Abdomen is soft. Musculoskeletal: Right lower le+ Pitting Edema present. Left lower le+ Pitting Edema present. Medications: Continuous Meds[2] Scheduled Meds[3] Assessment Acute Problems : Acute on chronic CHF exacerbation with severely reduced left ventricular ejection fraction Acute hypoxic respiratory failure due to above Iron deficiency anemia-acute on chronic status post PRBC transfusion Elevated TSH CKD stage IIIb Class I obesity Possible obesity hypoventilation syndrome Stable chronic problems affecting care, new non-acute diagnoses: Medical Decision Making 04/06 -on Lasix 40 mg IV twice daily, O2 supplementation, daily weights and intake and output, monitor O2 sats, cardiology following, Hydralazine/carvedilol And low-dose statin, not on aspirin due to anemia/bleeding risk 2D echo showed severely reduced left ventricular ejection fraction of 22% with severe global hypokinesis Maintain potassium more than 4 and magnesium more than 2 04/07 -appreciate cardiology and GI inputs, on iron IV, continue to monitor H&H, O2 supplementation via nasal cannula 93% on 4 L, monitor weights and intake and output, Lasix 40 mg IV twice daily extra 20 mg IV as needed, low-salt diet, GI workup with EGD and colonoscopy once respiratory status stable, continue PT and OT assessments Palliative consulted for goals of care, discussed with rosina Higginbotham at bedside, explained the terms of full code and DNR CCA patient currently a full code -am labs, replace lytes prn -increase activity -DVT prophylaxis: [] Lovenox [] Heparin [] SCDs [x] Encourage ambulation [] Already on Anticoagulation - GI prophylaxis : Anticipated Discharge - Date -April 11 or - Location -possible [facility] facility - Pending the following -clinical improvement, GI workup and PT and OT assessments Total time spent (which include face to face and non face to face encounters) : 56 minutes Toxic drug monitoring/narrow therapeutic index drug monitoring : # Drug name : # Route administered : # Method of monitoring : Extended Emergency Contact Information Primary Emergency Contact: ANAHY CHARLES Mobile Relation: Daughter Preferred language: Iranian Mine Utility Operator needed? No Mahaveer Mukkamalla, MD Division of Hospitalist Medicine Acute care contra [facility] PAGER: Epic chat [1] History reviewed. No pertinent past medical history. [2] [3] atorvastatin, 20 mg, Oral, Nightly carvedilol, 3.125 mg, Oral, BID WC furosemide, 40 mg, IntraVENous, BID hydrALAZINE, 25 mg, Oral, TID iron sucrose, 200 mg, IntraVENous, q24h pantoprazole, 40 mg, Oral, qAM AC [facility] Cardiology /Electrophysiology Progress Note HPI / Interval History: Mary Charles has no prior cardiac history (has not seen a physician for many years) who presented to [facility] with worsening SOB, hypoxia and edema. CXR with pulmonary edema. Hs-trop 29-28, pro-BNP 8438, creatinine 1.44, Hgb 5.6. He received 2 units pRBC and Hgb 7.4 this AM. He was seen by Dr. Scherer in consultation and TTE showed EF 22% with global hypokineses and 2+ MR. He is being diuresed with IV lasix and was started on GDMT. Due to anemia and frailty, he is recommended for medical management. He was also noted to have mural thickening involving the cecum and terminal ileum with concern for neoplasm or inflammation. GI is following and is recommending EGD and colonoscopy when stable from a cardiac standpoint. Today, he states his edema and SOB are improving, but he still has HAWKINS and some orthopnea. He denies CP, PND, palpitations, syncope. His daughter is st the bedside. 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, Stage C, Class III, EF 22% per TTE 03/2025 - daily weight no documented - I&O -730 mL since admission (if accurate) - volume status improving, but creatinine rising, so I will hold IV lasix - continue coreg 3.125 mg po BID - continue hydralazine 25 mg po TID - unable to titrate GDMT 2/2 low BP - no ASA 2/2 anemia - continue atorvastatin 20 mg po daily SIENA on CKD - creatinine 1.46 on admission and 1.78 today - hold IV lasix as above Anemia - Hgb 5.6 on admission and 7.8 today after 2 units pRBC - continue venofer - per primary team Mural thickening cecum and terminal ileum per CT scan - GI following - they recommend EGD and colonoscopy once cardiac status improved (tentatively scheduled for Saturday) Dispo: continue to follow Medications: atorvastatin, 20 mg, Oral, Nightly carvedilol, 3.125 mg, Oral, BID WC furosemide, 40 mg, IntraVENous, BID hydrALAZINE, 25 mg, Oral, TID iron sucrose, 200 mg, IntraVENous, q24h pantoprazole, 40 mg, Oral, qAM AC Infusion Medications: Continuous Meds[1] Physical Examination: Vitals: 04/06/25202804/06/25 2304 04/07/25 0321 04/07/25 0754 BP: 117/61 104/54 100/52 93/56 BP Location: Left arm Left arm Left arm Left arm Patient Position: Lying Sitting Lying Sitting Pulse: 77 67 77 82 Resp: 20 18 16 20 Temp: 36.3 C (97.3 F) 36.3 C (97.4 F) 36.4 C (97.6 F) 36.9 C (98.5 F) TempSrc: Temporal Temporal Temporal Temporal SpO2: 94% 93% 96% 96% Weight: Height: Intake/Output Summary (Last 24 hours) at 04/07/2025 1026 Last data filed at 04/06/2025 2241 Gross per 24 hour Intake 210 ml Output 1720 ml Net -1510 ml Patient Vitals for the past 168 hrs: Weight Weight Method 04/06/25 1217 200 lb (90.7 kg) -- 04/05/25 1608 200 lb (90.7 kg) Stated Physical Exam Vitals reviewed. Constitutional: Appearance: Normal appearance. HENT: Head: Normocephalic and atraumatic. Mouth/Throat: Mouth: Mucous membranes are moist. Pharynx: Oropharynx is clear. Neck: Vascular: No JVD. Cardiovascular: Rate and Rhythm: Normal rate and regular rhythm. Heart sounds: Normal heart sounds. Pulmonary: Effort: Pulmonary effort is normal. Breath sounds: Examination of the right-lower field reveals rales. Rales present. Abdominal: General: Abdomen is protuberant. Palpations: Abdomen is soft. Tenderness: There is no abdominal tenderness. Musculoskeletal: Right lower le+ Pitting Edema present. Left lower le+ Pitting Edema present. Skin: General: Skin is warm. Coloration: Skin is pale. Neurological: Mental Status: He is alert and oriented to person, place, and time. Psychiatric: Attention and Perception: Attention normal. Mood and Affect: Mood normal. Speech: Speech normal. Laboratory Tests: TROPONIN I, CONVENTIONAL SENSITIVITY No results found for: CKTOTAL, CKMB, CKMBINDEX, TROPONINI TROPONIN I, HIGH SENSITIVITY Troponin HS Serial Baseline Date Value Ref Range Status 04/05/2025 29 <=35 ng/L Final Comment: In individuals presenting with symptoms > 2h, a baseline troponin <= 5 ng/L suggests acute cardiac injury is unlikely and further serial testing is generally not indicated. 04/05/2025 30 <=35 ng/L Final Comment: In individuals presenting with symptoms > 2h, a baseline troponin <= 5 ng/L suggests acute cardiac injury is unlikely and further serial testing is generally not indicated. 2h Troponin HS (Serial 2nd Troponin) Date Value Ref Range Status 04/05/2025 28 <=35 ng/L Final Comment: 2h troponin (2nd troponin) samples collected between 1h 40 min and 2h and 20 min of the baseline collection time can be utilized to interpret delta troponins as per [employer] algorithms. Samples collected outside this timeframe need to be interpreted clinically. Rising or falling troponin delta below 2 ng/L as compared to baseline value suggests that acute cardiac injury is unlikely. No results found for: TROPDELTBASE No results found for: TROPHS3 No results found for: TROPDELTSEC Recent Labs 04/05/25 1617 04/06/25 0334 04/07/25 0314 NA 140 143 143 K 4.5 4.2 3.6 CL 105 104 98 CO2 27 26 31 BUN 24* 24* 26* CREATININE 1.46* 1.44* 1.63* Recent Labs 04/05/25 1617 04/06/25 0334 04/07/25 0314 WBC 10.0 10.3 11.5* HGB 5.5* 7.6* 7.4* HCT 20.7* 27.2* 27.2* MCV 73.1* 78.6 80.0 PLT 358 344 346 Recent Labs 04/05/25 1617 BNP 8,438* Recent Labs 04/05/252025 TRIG 60 HDL 29* LDLCALC 48 CHOL 89 No results found for: LDLCHOLESTER Lab Results Component Value Date TSH 10.19 (H) 04/05/2025 EF BP Date Value Ref Range Status 04/06/2025 22 (A) 55 - 100 % Final 04/05/25 TRANSTHORACIC ECHOCARDIOGRAM (TTE) COMPLETE (CONTRAST/BUBBLE/3D PRN) 04/06/2025 12:42 PM (Final) Interpretation Summary Left Ventricle: Left ventricle is mildly dilated. Normal wall thickness. Severely reduced left ventricular systolic function. EF by 2D Simpsons Biplane is 22%. Severe global hypokinesis present. Right Ventricle: Not well visualized. Right ventricle size is normal. Normal systolic function. Mitral Valve: Moderate (2+) regurgitation. Tricuspid Valve: Severely elevated RVSP. RVSP is 66 mmHg. Left Atrium: Left atrium is mildly dilated. Pericardium: Left pleural effusion. Technically difficult study. Signed by: Thomas Hinton MD on 04/06/2025 12:42 PM Other reports reviewed: Cardiac Tests: Telemetry findings reviewed: SR with PAC EF BP Date Value Ref Range Status 04/06/2025 22 (A) 55 - 100 % Final LOURDES Benson CNP Date Of Service 04/07/2025 [1] Nutrition Assessment Type and Reason for Visit: Initial, Positive Nutrition Screen Nutrition Recommendations/Plan: Per mnt protocol will modify diet LANDON; suggest 2 gm sodium if PO intake optimal -encourage PO Per mnt protocol will add Ensure Plus daily (350 kcals, 20g protein per serving) -monitor intake and modify per pt preference Please continue to record meal and supplement intakes in RN Flowsheets RD to monitor labs, weight, skin status, po intake, assess need for diet education for heart failure -follow up weekly Malnutrition Assessment: Malnutrition Status: Insufficient data Context: Acute Illness Findings of the 6 clinical characteristics of malnutrition: Energy Intake: Unable to assess Weight Loss: Unable to assess Body Fat Loss: Unable to assess Muscle Mass Loss: Unable to assess Fluid Accumulation: Moderate to Severe Extremities Cash Processing Specialist Strength: Not Performed Nutrition Assessment: 89 y.o. male admits with acute on chronic CHF exacerbation with severely reduced left ventricular ejection fraction, acute hypoxic respiratory failure, iron deficiency anemia-acute on chronic status post PRBC transfusion, elevated TSH, CKD, possible obesity hypoventilation syndrome. GI consulted for anemia. Per Cardiology: heart failure new onset, uncertain etiology/but ICM is suspected, he is perfused, volume overloaded. Not a candidate for ischemic evaluation due to severe anemia and frailty. Conservative, medical management. nursing assistants teacher in room. Pt sleeping /snoring -name called numerous times pt did not wake -left undisturbed at this time. Estimated Daily Nutrient Needs: Energy Requirements Based On: Kcal/kg Weight Used for Energy Requirements: Carson Weight for Energy Calculation (kg): 70 kg Total Energy Requirements (kcals/day): 7717-9317 (25-30) Weight Used for Protein Requirements: Carson Weight in Kg Used for Protein Requirements: 70 kg Estimated Total Protein (g/day): 56-84 (.8-1.2) Estimated Daily Total Fluid (ml/day): per MD Nutrition Related Findings: +2 yasmine LE edema. bm 04/05. bun 24, cr 1.44, gfr 46.4, calcium 8.2, alb 2.6, bnp 8438. lasix, venofer. no wt hx to report on Wound Type: None Wt Readings from Last 50 Encounters: 04/06/25 90.7 kg (200 lb) Labs and meds reviewed: Scheduled Meds[1] Continuous Meds[2] Lab Results Component Value Date GLUCOSE 98 04/06/2025 CALCIUM 8.2 (L) 04/06/2025 NA 143 04/06/2025 K 4.2 04/06/2025 CO2 26 04/06/2025 CL 104 04/06/2025 BUN 24 (H) 04/06/2025 CREATININE 1.44 (H) 04/06/2025 Lab Results Component Value Date WBC 10.3 04/06/2025 HGB 7.6 (L) 04/06/2025 HCT 27.2 (L) 04/06/2025 MCV 78.6 04/06/2025 PLT 344 04/06/2025 Lab Results Component Value Date ALT 6 04/06/2025 AST 25 04/06/2025 ALKPHOS 63 04/06/2025 BILITOT 1.7 (H) 04/06/2025 No results for input(s): POCGLU in the last 72 hours. No results found for: HGBA1C No results found for: VITD25 Lab Results Component Value Date CHOL 89 04/05/2025 HDL 29 (L) 04/05/2025 TRIG 60 04/05/2025 Current Nutrition Therapies: Adult diet Regular; No Added Salt (3-4 gm) Current Oral Intake Average Meal Intake: 51-75% Average Supplements Intake: None Ordered Anthropometric Measures: Height: 172.7 cm (5' 8) Current Body Weight: 90.7 kg (200 lb) Weight Source: Stated Admission Body Weight: 90.7 kg (200 lb) Usual Body Weight: (unable to obtain) Carson Body Weight (lbs) (Calculated): 154 lbs Carson Body Weight (Kg) (Calculated): 70 kg % Carson Body Weight (Calculated): 129.9 % BMI (kg/m2) (Calculated): 30.4 Weight Adjustment For: No Adjustment BMI Categories: Obese Class 1 (BMI 30.0-34.9) Nutrition Diagnosis: Altered nutrition-related lab values related to cardiac dysfunction as evidenced by lab values Predicted inadequate energy intake related to inadequate protein-energy intake as evidenced by poor intake prior to admission (per nursing nutrition screen) Nutrition Interventions: Coordination of Nutrition Care: Continue to monitor while inpatient Plan of Care discussed with: Pt sleeping soundly Goals: Goals: PO intake 75% or greater, by next RD assessment Nutrition Monitoring and Evaluation: Behavioral-Environmental Outcomes: None Identified Food/Nutrient Intake Outcomes: Food and Nutrient Intake, Supplement Intake Physical Signs/Symptoms Outcomes: Biochemical Data, Chewing or Swallowing, GI Status, Nausea or Vomiting, Fluid Status or Edema, Hemodynamic Status, Nutrition Focused Physical Findings, Skin, Weight Discharge Planning: Too soon to determine Kristin Duffy RD Contact: *[phone] or via Secure Chat [1] atorvastatin, 20 mg, Oral, Nightly carvedilol, 3.125 mg, Oral, BID WC furosemide, 40 mg, IntraVENous, BID hydrALAZINE, 25 mg, Oral, TID iron sucrose, 200 mg, IntraVENous, q24h pantoprazole, 40 mg, Oral, qAM AC [2] Hospitalist Progress Note 04/06/[id number]: Please secure chat me for patient care issues. [phone]: Please secure chat [place] night Hospitalist for any issues. Subjective: Admit Date: 04/05/2025 PCP: No primary care provider on file. Room#: B2-254/B2-254 A Brief History: Patient is a 89-year-old gentleman admitted for worsening shortness of breath, he was being treated for CHF exacerbation, not seen a physician for a while, has history of anemia and black stools H&H low on admission. Consults : Cardiology Chief Complaint : Breathing slightly worse today, O2 supplementation via nasal cannula 97% on 4 to 4.5 L H&H 5.5/20.7 improved to 7.6/27.2 Low serum ferritin, IV Venofer added Adult diet Regular @[id number]@ 24HR INTAKE/OUTPUT: Intake/Output Summary (Last 24 hours) at 04/06/2025 1352 Last data filed at 04/06/2025 1000 Gross per 24 hour Intake 1339.33 ml Output 800 ml Net 539.33 ml Past Medical History: Medical History[1] LABS: CBC: Recent Labs 04/05/25 1617 04/06/25 0334 WBC 10.0 10.3 RBC 2.83* 3.46* HGB 5.5* 7.6* HCT 20.7* 27.2* MCV 73.1* 78.6 RDW 19.9* 20.5* PLT 358 344 BMP: Recent Labs 04/05/25 1617 04/06/25 0334 NA 140 143 K 4.5 4.2 CL 105 104 CO2 27 26 BUN 24* 24* CREATININE 1.46* 1.44* GLUCOSE 108 98 CALCIUM 8.4* 8.2* ANIONGAP 8 13 LIVER PROFILE: Recent Labs 04/05/25 1617 04/06/25 0334 AST 22 25 ALT 7 6 BILITOT 0.5 1.7* ALKPHOS 65 63 PROT 6.4 6.1* PT/INR: No results for input(s): PROTIME, INR in the last 72 hours. CARDIAC ENZYMES: No results for input(s): TROPONINI in the last 72 hours. Procalcitonin: No results found for: PROCAL COVID-19 PCR: No results for input(s): COVID19 in the last 72 hours. Objective: Vitals: BP 104/66 (BP Location: Left arm, Patient Position: Lying) Pulse 80 Temp 36.4 C (97.6 F) (Temporal) Resp 19 Ht 5' 8 (1.727 m) Wt 200 lb (90.7 kg) SpO2 97% BMI 30.41 kg/m Pulse Ox: SpO2 Av.4 % Min: 86 % Max: 100 % Physical Exam Constitutional: Appearance: He is obese. He is ill-appearing. Cardiovascular: Rate and Rhythm: Regular rhythm. Tachycardia present. Pulses: Normal pulses. Heart sounds: Normal heart sounds, S1 normal and S2 normal. Pulmonary: Effort: Tachypnea present. Breath sounds: Decreased air movement present. Abdominal: General: Bowel sounds are normal. Palpations: Abdomen is soft. Musculoskeletal: Right lower le+ Pitting Edema present. Left lower le+ Pitting Edema present. Medications: Continuous Meds[2] Scheduled Meds[3] Assessment Acute Problems : Acute on chronic CHF exacerbation with severely reduced left ventricular ejection fraction Acute hypoxic respiratory failure due to above Iron deficiency anemia-acute on chronic status post PRBC transfusion Elevated TSH CKD stage IIIb Class I obesity Possible obesity hypoventilation syndrome Stable chronic problems affecting care, new non-acute diagnoses: Medical Decision Making 04/06 -on Lasix 40 mg IV twice daily, O2 supplementation, daily weights and intake and output, monitor O2 sats, cardiology following, Hydralazine/carvedilol And low-dose statin, not on aspirin due to anemia/bleeding risk 2D echo showed severely reduced left ventricular ejection fraction of 22% with severe global hypokinesis Maintain potassium more than 4 and magnesium more than 2 -am labs, replace lytes prn -increase activity -DVT prophylaxis: [] Lovenox [] Heparin [] SCDs [x] Encourage ambulation [] Already on Anticoagulation - GI prophylaxis : Anticipated Discharge - Date - - Location - - Pending the following - Total time spent (which include face to face and non face to face encounters) : 56 minutes Toxic drug monitoring/narrow therapeutic index drug monitoring : # Drug name : # Route administered : # Method of monitoring : Extended Emergency Contact Information Primary Emergency Contact: ANAHY CHARLES Mobile Relation: Daughter Preferred language: Iranian Mine Utility Operator needed? No Westley Martinez MD Division of Hospitalist Medicine [facility] PAGER: Epic chat [1] History reviewed. No pertinent past medical history. [2] [3] atorvastatin, 20 mg, Oral, Nightly carvedilol, 3.125 mg, Oral, BID WC furosemide, 40 mg, IntraVENous, BID hydrALAZINE, 25 mg, Oral, TID iron sucrose, 200 mg, IntraVENous, q24h pantoprazole, 40 mg, Oral, qAM AC documented in this encounter [facility] 04-14-2025 Note IR US Thoracentesis 650 ml of hines yellow fluid removed. Vaseline guaze dressing applied. Patient tolerated procedure well. Patient returned to [place] patient room. [facility] 04-14-2025 Consult note Associated Order (s): IP CONSULT TO PALLIATIVE CARE Consult acknowledged. Patient previously seen by palliative care. Signed off on 04-12. Patient has had worsening status in last couple days, worsening pleural effusion. Spoke with pulmonology PLATE MOUNTER, Yesi today. Consult placed. Will see tomorrow s/p thoracentesis. Signed, Bela Agustin APRN, CNP, [facility] [phone] Cosigned by Diana Marsh MD at 04/14/2025 1:38 PM EDT Images from the original note were not included. [facility], Pulmonary Medicine [address] [place] [address] Patient - Mary Charles [facility] # - [id number] - 1935 Date of Admission - 04/05/2025 3:55 PM Date of evaluation - 04/12/2025 Room - B2-268/B2-268 B Hospital Day - 7 Consulting - Westley Martinez MD Primary Care Physician - No primary care provider on file. Active Hospital Problem List Problem List[1] Reason for Consult ICU transfer, respiratory failure, CHF, needs NIV on discharge History of Present Illness Mary Charles is a 89 y.o. male admitted for chief complaint of shortness of breath and bilateral lower extremity edema. CT chest with pulmonary edema and bilateral pleural effusions. ICU consulted on 04/08 for somnolence and increased dyspnea. Repeat CXR showed worsening pleural effusions and pulmonary edema. ABG with acute on possible chronic hypercarbia. Patient was transferred to ICU for NIV. Patient underwent bilateral thoracentesis. Respiratory status improved and patient was transferred out of ICU service on 04/10/25 with pulmonary to follow. Patient and family denied any significant pulmonary history such as COPD, asthma or sleep apnea. He denies use of inhalers, oxygen or NIPPV at home. Medical History Past Medical History: Medical History[2] Past Surgical History: Surgical History[3] Social History Social History Socioeconomic History Marital status: Spouse name: Not on file Number of children: Not on file Years of education: Not on file Highest education level: Not on file Occupational History Not on file Tobacco Use Smoking status: Never Smokeless tobacco: Not on file Substance and Sexual Activity Alcohol use: Not on file Drug use: Not on file Sexual activity: Not on file Other Topics Concern Not on file Social History Narrative Not on file Social Drivers of Health Financial Resource Strain: Not on file Food Insecurity: No Food Insecurity (04/08/2025) Hunger Vital Sign Worried About Running Out of Food in the Last Year: Never true Ran Out of Food in the Last Year: Never true Transportation Needs: No Transportation Needs (04/08/2025) PRAPARE - Transportation Lack of Transportation (Medical): No Lack of Transportation (Non-Medical): No Physical Activity: Not on file Stress: Not on file Social Connections: Not on file Intimate Partner Violence: Not At Risk (04/08/2025) Humiliation, Afraid, Rape, and Kick questionnaire Fear of Current or Ex-Partner: No Emotionally Abused: No Physically Abused: No Sexually Abused: No Housing Stability: Low Risk (04/08/2025) Housing Stability Vital Sign Unable to Pay for Housing in the Last Year: No Number of Times Moved in the Last Year: 0 Homeless in the Last Year: No Family History Family History[4] Allergies Allergies: Patient has no known allergies. Medications Current Medications Scheduled Meds[5] PRN Mediations PRN Meds[6] Home Medications No current outpatient medications Review of Systems Review of Systems Constitutional: Negative for chills, fatigue and fever. HENT: Negative for congestion, postnasal drip, rhinorrhea, sinus pressure, sinus pain and trouble swallowing. Respiratory: Positive for cough. Negative for apnea, chest tightness, shortness of breath, wheezing and stridor. Cardiovascular: Negative for chest pain, palpitations and leg swelling. Neurological: Positive for weakness. Negative for dizziness and light-headedness. Psychiatric/Behavioral: Negative for agitation and confusion. Vitals height is 5' 8 (1.727 m) and weight is 201 lb 6.4 oz (91.4 kg). His temporal temperature is 37.1 C (98.7 F). His blood pressure is 100/51 and his pulse is 62. His respiration is 16 and oxygen saturation is 96%. Body mass index is 30.62 kg/m . 24 Hour intake and output Intake/Output Summary (Last 24 hours) at 04/12/2025 1130 Last data filed at 04/12/2025 0917 Gross per 24 hour Intake 240 ml Output 650 ml Net -410 ml @[id number]@ Physical Exam Physical Exam Vitals and nursing note reviewed. Constitutional: General: He is not in acute distress. Appearance: He is obese. HENT: Head: Normocephalic and atraumatic. Right Ear: External ear normal. Left Ear: External ear normal. Nose: Nose normal. No congestion or rhinorrhea. Cardiovascular: Rate and Rhythm: Normal rate and regular rhythm. Comments: SCDs in place Pulmonary: Effort: No respiratory distress. Breath sounds: No stridor. No wheezing, rhonchi or rales. Musculoskeletal: Right lower le+ Edema present. Left lower le+ Edema present. Neurological: Mental Status: He is alert and oriented to person, place, and time. Psychiatric: Mood and Affect: Mood normal. Behavior: Behavior normal. Labs CBC Results from last 7 days Lab Units 04/12/25324 WBC AUTO 10*3/uL 12.0* HEMOGLOBIN g/dL 7.4* HEMATOCRIT % 26.8* PLATELETS 10*3/uL 272 BMP: Results from last 7 days Lab Units 04/12/2532404/11/25 05004/10/25 0443 SODIUM mmol/L 139 139 142 POTASSIUM mmol/L 3.7 3.6 3.2* CHLORIDE mmol/L 95* 94* 95* CO2 mmol/L 37* 35* 35* BUN mg/dL 40* 36* 32* CREATININE mg/dL 1.53* 1.55* 1.65* GLUCOSE mg/dL 103 103 98 CALCIUM mg/dL 7.9* 8.1* 8.0* ABG: Results from last 7 days Lab Units 04/08/25205204/08/25 1654 PH ART 7.332* 7.296* PCO2 ART mm Hg 75.1* 80.1* PO2 ART mm Hg 104.0 92.0 HCO3 ART mmol/L 38.9* 38.2* O2 SAT ART % 97.0 96.1* BASE EXC ART mmol/L 11.2* 9.9* SOURCE OF OXYGEN Non-Invasive Ventilator Nasal Cannula (LPM) LIVER PROFILE Results from last 7 days Lab Units 04/12/2532404/11/25 05004/10/25 0443 04/06/25 0334 04/05/25 1617 ALK PHOS U/L 49 53 50 < > 65 BILIRUBIN TOTAL mg/dL 0.6 0.7 0.6 < > 0.5 BILIRUBIN DIRECT mg/dL -- -- -- -- 0.2 PROTEIN TOTAL g/dL 5.6* 6.1* 5.5* < > 6.4 ALT U/L <6 <6 <6 < > 7 AST U/L 19 18 16 < > 22 < > = values in this interval not displayed. INR PTT No results found for: PTT Cultures Right pleural fluid Culture: NGTD Cytology: Pending Left pleural fluid Culture: NGTD Cytology: Pending Pulmonary function tests (PFT's) No PFT's in EPIC Sleep History No sleep study available in [facility] Radiology CXR 04/11/25: IMPRESSION: Cardiomegaly with mild pulmonary vascular congestion. Bilateral pleural effusions, small on the right and moderate sized on the left. No new areas of consolidation CT chest 04/06/25: Findings: The aorta and main pulmonary artery are grossly of normal caliber. The right pulmonary artery measures approximately 3.7 cm in diameter. The ascending thoracic aorta measures 3.7 cm in diameter. Mild calcification of the aortic arch. Extensive diffuse coronary artery calcification present with question coronary stents. Heart size is enlarged. There is no significant adenopathy demonstrated. Small subcentimeter mediastinal lymph nodes. Moderate to large bilateral pleural effusions with bilateral infiltrates and/or compressive atelectasis of the lungs. Presumed component of pulmonary edema with some coarsening of the interstitium. Dense calcification along the origin of the celiac artery, incompletely covered. Moderate to large osteophytes along the right anterior thoracic spine at multiple levels. IMPRESSION: Impression: Findings thought to most likely represent CHF. A superimposed infectious etiology is not excluded. The right pulmonary artery appears enlarged. Echocardiogram 04/06/2025 Left Ventricle: Left ventricle is mildly dilated. Normal wall thickness. Severely reduced left ventricular systolic function. EF by 2D Simpsons Biplane is 22%. Severe global hypokinesis present. Right Ventricle: Not well visualized. Right ventricle size is normal. Normal systolic function. Mitral Valve: Moderate (2+) regurgitation. Tricuspid Valve: Severely elevated RVSP. RVSP is 66 mmHg. Left Atrium: Left atrium is mildly dilated. Pericardium: Left pleural effusion. 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 ABG showed improvement with NIV. Patient declined BiPAP for last 2 nights. Discussed the importance of using BiPAP at at bedtime today at the bedside. Patient agreeable to try again tonight. Consider trying nasal mask or nasal pillows for comfort. Spoke with Breana from [employer] [facility] today, patient will need overnight pulse oximetry and repeat ABG after using BiPAP tonight. Patient will need to wear BiPAP for least 4 hours. Discussed with patient at bedside. I also called patient's daughter Anahy Charles with patient's permission and updated her on above. She will try to reinforce BiPAP use tonight when she visits her father. S/p left thoracentesis (-1000 ml) and right thoracentesis (-600). Pleural fluid studies indicate transudate and likely related to HFrEF. Repeat CXR with bilateral pleural effusions. Will hold off on additional thoracentesis at this time. Continue diuresis as per Cardiology recommendations. On 4 liters NC. Wean FiO2 as patient tolerates to keep SpO2 > or = 92% PT/OT recommending SNF GI recommendations noted. Plan for outpatient EGD/ colonoscopy once stable. Hgb 7.4 today Palliative care following. Patient and daughter would like to continue with aggressive treatment at this time. Remains full code Will continue to follow Updated patient's daughter Anahy Charles today via telephone with patients permission. Advance Directive: Full Code Discharge planning: TBD Case discussed with nurse and patient Questions and concerns addressed.. I have discussed the patient's case and plan of care with my collaborating physician Dr. Armstrong [1] Patient Active Problem List Diagnosis Acute congestive heart failure, unspecified heart failure type (HCC) [2] History reviewed. No pertinent past medical history. [3] History reviewed. No pertinent surgical history. [4] No family history on file. [5] atorvastatin, 20 mg, Oral, Nightly furosemide, 40 mg, IntraVENous, BID hydrALAZINE, 25 mg, Oral, TID metoprolol succinate XL, 25 mg, Oral, Daily mupirocin, 1 Application, Nasal, BID pantoprazole, 40 mg, Oral, qAM AC polyethylene glycol (PEG) 3350, 17 g, Oral, Daily senna-docusate sodium, 2 tablet, Oral, BID [Held by provider] torsemide, 40 mg, Oral, Daily [6] PRN medications: acetaminophen OR acetaminophen, lidocaine, naloxone, ondansetron ODT OR ondansetron Cosigned by Norman Armstrong MD at 04/15/2025 1:51 PM EDT Associated Order(s): IP CONSULT TO DIETITIAN Nutrition Assessment Type and Reason for Visit: Reassess, Consult Nutrition Recommendations/Plan: Continue Regular; No Added Salt (3-4 g Na+/day) diet, +Ensure Plus High Protein once daily (+350 kcal, 20 g protein/serving) Assist and encourage patient to participate in room service and order well balanced meals Please document all oral intake in EMR for most accurate nutrient intake assessment As able, please obtain weekly standing or actual bed scale weights for most accurate anthropometric data and calculation of macronutrient and fluid needs RDN to continue to monitor weekly: fluid accumulation, weight, skin integrity, trends in lab values, tolerance of PO and ONS, clinical status, discharge planning. Malnutrition Assessment: Malnutrition Status: At risk for malnutrition (Comment) (monitor intake and ability to meet needs) Context: Acute Illness Findings of the 6 clinical characteristics of malnutrition: Energy Intake: Mild decrease in energy intake (Comment) (poor PO since admit on 04/05) Weight Loss: No significant weight loss Body Fat Loss: Mild body fat loss Buccal region Muscle Mass Loss: Mild muscle mass loss Temples (temporalis), Clavicles (pectoralis & deltoids) Fluid Accumulation: Moderate to Severe Extremities Cash Processing Specialist Strength: Normal channel account manager strength Nutrition Assessment: 89 year old man who remains admitted to [facility] with shortness of breath and hypoxia. Chest Xray on admit showed peripheral edema and he was admitted and started on Lasix. TTE revealed severe LV systolic dysfunction with moderate MR and severely elevated RVSP; EF rate ~22%. Cardiology consulted and following, no plans for ischemic evaluation and recommending to pursue conservation medical management. Noted anemia (Hgb5.5) on admit, +2 u PRBC and Hgb improved to 7.6 and has remained stable since. GI consulted for anemia- recommended EGD and colonoscopy when medically optimized. Palliative care consulted and supporting, patient expressed desire to remain full code. Course complicated by episode of lethargy and somnolence with increased WOB and SOB on evening of 04/08. Repeat CXR showed worsening effusions and pulmonary edema, ABG showed acute on possibly chronic hypercarbia. Transferred to ICU for NIV initiation. This morning weaned from NIV to 4 L O2 via NC, s/p -1000 mL left sided thoracentesis. Resting in bed at time of assessment, eager to eat breakfast. Completed NFPE with consent, discussed with Dr Lewis and diet advanced post visit. Estimated Daily Nutrient Needs: Energy Requirements Based On: Kcal/kg Weight Used for Energy Requirements: Carson Weight for Energy Calculation (kg): 70 kg Total Energy Requirements (kcals/day): 2709-6436 (25-30) Weight Used for Protein Requirements: Carson Weight in Kg Used for Protein Requirements: 70 kg Estimated Total Protein (g/day): 56-84 (.8-1.2) Estimated Daily Total Fluid (ml/day): per MD Nutrition Related Findings: -I/O balance. Oriented x4. +3 BLE, Michael score=11. Meds and labs reviewed. +4 L O2 via NC, weaned off NIV. Poor PO since admit. s/p -1000 mL left sided thoracentesis 04/09/25 Wound Type: None Current Nutrition Therapies: Adult diet Regular; No Added Salt (3-4 gm) Current Oral Intake Average Meal Intake: 1-25%, 51-75%, 26-50% (PO Varied 75-25%) Average Supplements Intake: Unable to assess Anthropometric Measures: Height: 172.7 cm (5' 8) Current Body Weight: 95.1 kg (209 lb 10.5 oz) Weight Source: Stated Admission Body Weight: 90.7 kg (200 lb) (stated) Usual Body Weight: (none on file to review) Carson Body Weight (lbs) (Calculated): 154 lbs Carson Body Weight (Kg) (Calculated): 70 kg % Carson Body Weight (Calculated): 136.1 % BMI (kg/m2) (Calculated): 31.9 Weight Adjustment For: No Adjustment BMI Categories: Obese Class 1 (BMI 30.0-34.9) Nutrition Diagnosis: Altered nutrition-related lab values related to cardiac dysfunction as evidenced by lab values Predicted inadequate energy intake related to inadequate protein-energy intake as evidenced by poor intake prior to admission (per nursing nutrition screen) Nutrition Interventions: Nutrition Education/Counseling: Education not indicated Coordination of Nutrition Care: Continue to monitor while inpatient Plan of Care discussed with: Multidisiplinary rounds, RN, Patient. Goals: Previous Goal Met: Progressing toward Goal(s) Goals: PO intake 75% or greater, by next RD assessment Nutrition Monitoring and Evaluation: Behavioral-Environmental Outcomes: None Identified Food/Nutrient Intake Outcomes: Food and Nutrient Intake, Supplement Intake Physical Signs/Symptoms Outcomes: Biochemical Data, Chewing or Swallowing, GI Status, Nausea or Vomiting, Weight, Skin, Nutrition Focused Physical Findings, Meal Time Behavior, Hemodynamic Status, Fluid Status or Edema Discharge Planning: Too soon to determine Darleen Stubbs RDN, LDN, Contact: *[phone] Associated Order(s): INPATIENT CONSULT TO CRITICAL CARE - MEDICAL TEAM Internal Medicine: MICU Initial Consult Name: Mary Charles : 1935(89 y.o.) Date: 04/08/25 Attending: Precious Lewis MD Subjective: Chief Complaint: shortness of breath HPI: Patient is a pleasant 89 year-old male with a history of chronic HFrEF and prior remote tobacco abuse who was admitted to [facility] 04/05/25 with shortness of breath and cough. 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 He also had intermittent melena, Hgb was 5.5 on presentation, required [address] chest showed pulmonary edema and effusions, CT abdomen/pelvis showed mural thickening of the cecum and terminal ileum. ICU consulted 04/08/25 for somnolence and increased dyspnea. Repeat CXR showed worsening effusions and pulmonary edema, ABG showed acute on possibly chronic hypercarbia. He also received PRN ativan overnight Upon evaluation, patient is resting comfortably, slow to respond to questions, but currently A&O x3 and protecting airway, saturating well on 4 LPM O2. He endorses leg swelling, dyspnea with exertion, cough, and orthopnea. He denies fever, chills, chest pain, wheezing, hemoptysis, abdominal pain, nausea, vomiting, diarrhea, constipation, lightheadedness, dizziness, dysuria, hematuria, hematochezia. He will be transferred to ICU for NIV. Medical History[1] Surgical History[2] Family History[3] Social History Socioeconomic History Marital status: Spouse name: Not on file Number of children: Not on file Years of education: Not on file Highest education level: Not on file Occupational History Not on file Tobacco Use Smoking status: Not on file Smokeless tobacco: Not on file Substance and Sexual Activity Alcohol use: Not on file Drug use: Not on file Sexual activity: Not on file Other Topics Concern Not on file Social History Narrative Not on file Social Drivers of Health Financial Resource Strain: Not on file Food Insecurity: Not on file Transportation Needs: Not on file Physical Activity: Not on file Stress: Not on file Social Connections: Not on file Intimate Partner Violence: Not At Risk (04/05/2025) Humiliation, Afraid, Rape, and Kick questionnaire Fear of Current or Ex-Partner: No Emotionally Abused: No Physically Abused: No Sexually Abused: No Housing Stability: Not on file Allergies[4] Prior to Admission medications Not on File Objective: Oxygen Delivery: O2 Flow Rate (L/min): 4 L/min VITALS: BP 112/60 (BP Location: Left arm) Pulse 69 Temp 36.4 C (97.5 F) (Temporal) Resp 18 Ht 1.727 m (5' 8) Wt 90.7 kg (200 lb) SpO2 97% BMI 30.41 kg/m CURRENT PULSE OXIMETRY: SpO2: 97 % ROS: Negative unless otherwise stated in HPI Constitutional: General Appearance []WDWN [x]Obese []Cachectic []Thin []Ill Eyes: Inspection of Pupils/Irises Pupils round and react: [x]Yes []No Sclera: []Icteric [x]Non-Icteric Inspection of Conjunctiva/Lids Conjunctiva: []Injected [x]Non-Injected Lids: [x]Intact []Lesion Present ENT/Mouth: External Inspection of ears/nose [x] Normal [] Scar/Lesion/Mass Inspection of teeth/lips/gums Dentition: [x][place] Teeth []Dentures Lips/Gums: [x]Intact []Lesion Present Mucosa: [x][place] []Moist []Dry Neck: External Appearance Overall Appearance: [x]Normal []Lesion/Mass/Crepitus Present Trachea midline: [x]Yes []No Thyroid [x]Normal []Enlarged []Tender []Mass []Absent Respiratory: Respiratory effort []Labored [x]Non-Labored [] Mechanically-Ventilated Auscultation []Clear [x]Crackles []Wheezes []Rhonchi Cardiovascular: Auscultation Rate: [x]Regular []Irregular []Tachycardia []Bradycardia Rhythm: [x]Regular []Irregular Murmur: []Present [x]Absent Extremities Peripheral Edema: [x]Present []Absent Varicosities: []Present [x]Absent Gastrointestinal: Abdomen Palpation: [x]Soft []Firm []Tender [x]Non-Tender []Distended [x]Non-distended Mass: []Present [x]Absent Bowel Sounds: [x]Present []Absent Hernia: []Present [x]Absent Liver/Spleen: []Hepatosplenomegaly [x]Organomegaly Absent Musculoskeletal: Inspection of Digits and Nails Cyanosis: []Present [x]Absent Clubbing: []Present [x]Absent Ischemia: []Present [x]Absent Infection: []Present [x]Absent Extremities NUNEZ Equally: Except ([]RUE []RLE []LUE []LLE) Strength/Tone: Intact and Normal ([]RUE []RLE []LUE []LLE) Skin: Inspection [x]Normal []Rash []Lesion []Ulcer Palpation [x]Warm []Cool []Dry []Clammy []Nodules []Induration []Skin-tightening Cap-Refill: [x] <3 sec [] >3 seconds (delayed) Neurologic: [x] Sensation grossly intact Psych: Mental Status Alert: [x]Yes [] No Oriented: []x0 []X1 []X2 [x]x3 Mood/Affect [x]Somnolent []Flat []Agitated []Depressed []Anxious []Calm []Sedated []NAD [facility] within last 24 hours- BMP: Recent Labs 04/06/2533304/07/2531304/08/25 0017 NA 143 143 142 K 4.2 3.6 3.4* CL 104 98 99 CO2 26 31 33* BUN 24* 26* 26* CREATININE 1.44* 1.63* 1.78* CALCIUM 8.2* 7.9* 7.9* MG 1.8 1.7 1.6 LFTs: Recent Labs 04/06/2533304/07/2531304/08/25 0017 AST 25 23 21 ALT 6 <6 <6 PROT 6.1* 5.7* 5.8* ALBUMIN 2.6* 2.4* 2.4* BILITOT 1.7* 0.7 0.6 ALKPHOS 63 57 57 Glucose: Recent Labs 04/06/25 0334 04/07/25 0314 04/08/25 0017 04/08/25 1631 GLUCOSE 98 88 99 -- POCGLU -- -- -- 100 Procal: No results for input(s): PROCAL in the last 72 hours. CBC: Recent Labs 04/06/25 0334 04/07/2531304/08/251604/08/25 1654 WBC 10.3 11.5* 13.0* -- HGB 7.6* 7.4* 7.2* 8.6* HCT 27.2* 27.2* 25.9* -- PLT 344 346 314 -- MCV 78.6 80.0 80.2 -- RDW 20.5* 20.5* 21.1* -- ABGs: Recent Labs 04/08/25 1654 PHART 7.296* [id number] 80.1* PO2ART 92.0 [id number] 38.2* [id number] Nasal Cannula (LPM) Lactic Acid: No results for input(s): LACTATE in the last 72 hours. INR: No results for input(s): INR in the last 72 hours. Cardiac Injury Profile: No results for input(s): CKTOTAL, CKMB, TROPONINI in the last 72 hours. Labs in Last 3 months: Lab Results Component Value Date TSH 10.19 (H) 04/05/2025 Microbiology- Urine Cx: No results found for: URINECX Blood Cx: No results found for: BLOODCX Sputum Cx: No results found for: RESPCULT Gram Stain: No results found for: LABGRAM PNA PCR: No results found for: HUMANMETAPNE COVID19: No results found for: COVID19 Legionella Ag: No results found for: LEGIONELLAPN Strep Ag: No results for input(s): STREPPNEUMO in the last 72 hours. Imaging- CXR (04/08/25) IMPRESSION: Findings suggesting pulmonary edema and heart failure with worsening edema and effusions. CT abdomen/pelvis without contrast (04/06/25) IMPRESSION: 1. Mural thickening involving the cecum and terminal ileum. These findings could be due to neoplasm or enterocolitis. Recommend follow-up endoscopy. 2. Colonic diverticulosis. Assessment and Plan: Principal Problem: Acute congestive heart failure, unspecified heart failure type (HCC) Assessment: Acute on likely chronic hypoxemic/hypercarbic respiratory failure Acute HFrEF Pulmonary edema Pleural effusions Acute metabolic encephalopathy SIENA on CKD (unknown stage, unknown baseline Cr) Anemia, ?melena Mural thickening of cecum/terminal ileum Prior remote tobacco abuse Plan: - Transfer to ICU for NIV support, repeat ABG, titrate pressures as indicated - Resume IV Lasix 40 BID, benefits outweigh the risks of worsening renal function at this time, cardiology following - Place garcía, strict I/O's, no indication for PRESSURE WASHER at this time (would be a poor dialysis candidate regardless) - Continue GDMT with Coreg, Lipitor, hold parameters for hydralazine - GI following, colonoscopy on hold for now, Hgb stable, trend CBC, transfuse as indicated, no further episodes of melena noted - Palliative care following, discussed with daughter and niece at bedside, patient will remain full code for now, overall prognosis seems poor GI Prophylaxis: Pantoprazole PO DVT Prophylaxis: SCDs BMI Classification: Body mass index is 30.41 kg/m . obesity BMI 30-39.9 Disposition: Transfer to ICU Critical Care Time: 50 Total critical care time caring for this patient with life threatening, unstable organ failure, including direct patient contact, management of life support systems, review of data including imaging and labs, discussions with other team members and physicians, excluding procedures. [1] History reviewed. No pertinent past medical history. [2] History reviewed. No pertinent surgical history. [3] No family history on file. [4] No Known Allergies Associated Order(s): IP CONSULT TO PALLIATIVE CARE Images from the original note were not included. Palliative Care Initial Consult Chief Complaint: Mary Charles is a 89 y.o. male with chief complaint of shortness of breath. Palliative Care will follow peripherally, please contact on-call provider for urgent needs Assessment/Plan Goals of care Mary Charles retains capacity for medical decision-making -legal surrogate decision maker is daughter, Anahy Charles ( ) -see subjective for details of conversation -goals of care include: 1) discuss code status with family 2) continue workup for heart failure and hope for scans/workup with GI AE CHFrEF -Cardiology following. -TTE revealing EF 22%, severe LV systolic dysfunction and moderate MR and severely elevated RVSP -Noted that he is not a candidate for other aggressive management 2/2 frailty. -Cardiology managing medications. Appears that he really would be appropriate for hospice, however patient states he would like to continue workup and treatment as it stands now. -Monitor, continue to support. Continue goals of care conversations. No change in code status today. Dyspnea -ongoing. 2/2 above AE CHF/newly diagnosed CHF. -NC in place now. -dyspnea on exertion more than at rest, however some conversational dyspnea it appears. -Monitor. Acute anemia Hematochezia -Low Hgb on arrival. -Iron IV hanging currently, but not infusing. -Hgb 5.5 on arrival, received PRBC. -Endorses dark stools at times. -Monitor H/H -Monitor labs. -GI following, continuing workup pending stability from cardiac standpoint-->recommendations EGD/colonoscopy. -CT findings of mural thickening of cecum and TI concerning for malignancy vs. Inflammation. -Monitor. Acute respiratory failure, hypoxia -NC in place at this time. -Patient states he does not wear O2 at home. -Monitor O2 sats. -Home O2 evaluation?? -Remains full code at this time. -Obesity hypoventilation syndrome?? Hx LEONA?? -Cardiology following as above. -Monitor. Debility -PT/OT on board. -Patient states that he stood at bedside today with therapy. -Lives alone, may need more help at home vs. Facility placement. -Will continue to follow peripherally. -Monitor. Depression Life change -Noted that about a year ago. -Patient lives alone now. Appears that he is depressed based on changes recorded in H/P -Lack of interest in doing things, appetite changes, change in health status-->??not taking care of himself. -Consider medication for mood? -Park Landscape Architect support requested. -Monitor. Hx CKD III -CrCl 33.6 mL/min. -Creatinine 1.63 BUN 26 as of this AM -As above has not seen physician/provider in several years. -Monitor fluid status, renally dose medications. -Monitor I/O -Avoid nephrotoxic medications. -??risk for cardiorenal syndrome. Monitor. Palliative Care Encounter -Code Status: Full Code - will continue to follow for ongoing monitoring of progression of Dyspnea as well as for appropriateness for hospice care due to CHF and Respiratory Failure PC Time Stamp: Total of 55 minutes spent on this encounter including Chart review, Patient visit and exam, Documentation in EHR, Care coordination, Communicating with primary attending or other consultants, Obtaining and/or reviewing separately obtained history, and Counseling and educating patient/family/caregiver. Discharge planning: Not ready for discharge due to ongoing goals of care discussion Patient meets criteria for general inpatient hospice care: No Palliative Care IDT members involved: None Discussed the plan of care with the other interdisciplinary team (IDT) members of the Palliative Care and Hospice teams and Patient. Subjective: Subjective/Events Mary Charles is a 89 y.o. male with no PMH on file. Noted that he has not seen a provider in several years. 1 year ago. Appears that he has had significant mood change in last year or so. was sick for a while at the end of her life, in and out of hospital and then dc to [facility]. He presents with CC SOB. He currently lives alone. Progressive SOB for about a year. Not able to ambulate short distance without having to take a break. Endorses maybe black stool once in a while. Hgb 5.5 on arrival. Received transfusion while inpatient. Palliative care consulted for goals of care, support. He is seen today, in bed. NAEON. Remains on O2. PT/OT worked with him today, stood at the bedside. Wanting further workup for acute issues at this time. Briefly discussed hospice. Appears that patient is not ready for this discussion at this time. GI following. Cardiology following. Daughter previously at bedside. She is no longer present. Continue to follow. Pain Assessment No pain Advance Care Planning Advanced Care Planning Conversation Pertinent Diagnosis/es: palliative care encounter The patient and/or surrogate consented to a voluntary Advance Care Planning conversation. Mary Charles retains capacity for medical decision-making Individuals present included: Patient, daughter no longer at bedside Summary of the conversation: Reviewed with patient and family that, given multiple medical co-morbidities in the setting of advanced age, if patient were to have cardiac arrest the chances of surviving CPR would be low. Reviewed that if survived cardiac arrest, patient would likely not return to prior level of function. -Discussion of new heart failure and chronic issues. Medical management -Briefly discussed hospice, appears that patient is not interested at this time for further discussion regarding this topic. Outcome of the conversation: Decision to remain full code and continue all aggressive care Advance Directives were not explained. Conversation focused on goals, values and medical decision-making. This is the first significant conversation I have had with this patient about advanced care planning. I spent 30 minutes providing separately identifiable ACP services with the patient and/or surrogate decision maker in a voluntary conversation discussing the patient's goals, values, and preferences as detailed in the note above. Bela Agustin, ARBORICULTURIST - INFORMATICS EDUCATOR Palliative Care Assessments: Goals of care: Continue Current Management Advanced Directives: No Known Advance Directive Functional Assessment: PPS 50% mainly sit/lie; can't do any work/extensive disease; considerable assistance; normal or reduced intake; full LOC or confusion Prognosis: depends upon goals of care Spiritual Assessment: No spiritual distress identified Bereavement and Grief: Social Work and Spiritual Needs Requested PDMP/OARRS Reviewed: No Report Available Social history: Marital status: Children: not fully addressed Living status: alone Work history: [place] status: No Hinduism: No moravian on file ROS: See palliative care ROS/ESAS below; All other systems were reviewed and are negative. [place] Symptom Assessment Score [place] Score Pain Score (if non-verbal, add .FLACC below) 0 Tiredness Score 0 Nausea Score 0 Depression Score 3 Anxiety Score 0 Drowsiness Score 0 Anorexia Score (0= eating well, 10= not eating) 3 Wellbeing Score (10= worst sense of well-being) 4 Constipation 0 Dyspnea Score (0= no shortness of breath) 3 Family Meeting: Participants: patient Family meeting was held to discuss:Goals of Care and Treatment Options Medical History[1] Surgical History[2] Family History[3] Unable to obtain family history due to N/A- family history available Allergies[4] Objective: BP (!) 93/48 (BP Location: Left arm, Patient Position: Sitting) Pulse 66 Temp 36.6 C (97.9 F) (Temporal) Resp 20 Ht 5' 8 (1.727 m) Wt 200 lb (90.7 kg) SpO2 93% BMI 30.41 kg/m Physical Exam Vitals and nursing note reviewed. Constitutional: General: He is not in acute distress. Appearance: He is obese. He is ill-appearing. HENT: Head: Normocephalic. Nose: Nose normal. Mouth/Throat: Mouth: Mucous membranes are moist. Pharynx: Oropharynx is clear. Eyes: General: Right eye: No discharge. Left eye: No discharge. Extraocular Movements: Extraocular movements intact. Pupils: Pupils are equal, round, and reactive to light. Cardiovascular: Rate and Rhythm: Normal rate. Pulses: Normal pulses. Heart sounds: No murmur heard. Pulmonary: Effort: Pulmonary effort is normal. No respiratory distress. Comments: Some conversational dyspnea Some accessory muscle usage Cough present Abdominal: General: Bowel sounds are normal. There is distension. Palpations: Abdomen is soft. Tenderness: There is no abdominal tenderness. Musculoskeletal: Cervical back: Normal range of motion. Right lower leg: No edema. Left lower leg: No edema. Skin: General: Skin is warm and dry. Capillary Refill: Capillary refill takes less than 2 seconds. Coloration: Skin is pale. Neurological: Mental Status: He is alert and oriented to person, place, and time. Mental status is at baseline. Psychiatric: Mood and Affect: Mood normal. Behavior: Behavior normal. Thought Content: Thought content normal. Judgment: Judgment normal. Medication information: 24-hour PRN meds received: none in 24 hours. Results/Verification of Data Review Objective data reviewed (must include dates reviewed for labs, imaging reports and other specialty notes): BMP, CBC 04/07/25 BNP, troponin 04/07/25 GI note from 04-0604/07/25 Data in Support of Terminal Illness: Is patient hospice appropriate? Eligible, but not consistent with GOC at this time Transition Note Initiated: yes Bela Agustin APRN - [place] [1] History reviewed. No pertinent past medical history. [2] History reviewed. No pertinent surgical history. [3] No family history on file. [4] No Known Allergies Cosigned by Diana Marsh MD at 04/07/2025 1:44 PM EDT Associated Order(s): Inpatient consult to Gastroenterology Images from the original note were not included. GASTROENTEROLOGY INITIAL CONSULTATION NOTE 04/06/2025 Patient: Mary Charles : 1935 Primary Care Physician: No primary care provider on file. Inpatient consult to Gastroenterology Consult performed by: Kim Nieves MD Consult ordered by: Albaro Hernández MD CONSULT QUESTION: Severe anemia HISTORY OF PRESENT ILLNESS: Mary Charles is a 89 y.o. male with no known past medical history as he has not been to a provider in many years other than cataracts and hard of hearing, who presents to the ED with progressive SOB. He is not the most descriptive of historians, but it sounds like since his about a year ago February, he has had a hard time with navigating this new life. He has not been eating the same, doesn't go anywhere or do anything. He lives alone and has found it increasingly more difficult to complete activities of daily living. He mentions poor appetite and early satiety along with difficulty swallowing both liquids and solids. He denies any abdominal pain or cramping. No abdominal distension. No N/V or regurgitation. He has not been sick recently and denies fevers, chills and night sweats. He has not seen any melena, hematochezia or hematemesis. No epistaxis, hematuria or gum bleeding. He recently noticed decreased urine output and difficulty with breathing, feeling like he always had to catch his breath. Occasional cough with white phelgm. No hemoptysis. No prior EGD or colonoscopy. No known FH of colon cancer or GI malignancies. Upon presentation to the ED, he was found to be afebrile with soft BP and normal HR. Work-up revealed Cr 1.46, BUN 24, alb 2.7, normal LFTs, WBC 10, hgb 5.5 with MCV 73.1, plt 358 and BNP 8,438. CXR with congestion and peripheral edema. Chest CT with findings of CHF and/or superimposed infectious etiology and abd/pelvis CT scan with findings of mural thickening involving the cecum and terminal ileum, findings thought related to neoplasm or enterocolitis. TTE revealed severe LV systolic dysfunction with moderate MR and severely elevated RVSP. REVIEW OF SYSTEMS: A complete 10 point review of systems was obtained. Please see the HPI for pertinent positives and negatives. All other systems reviewed were found to be negative or noncontributory. No fever, chills, or sweats. No SANDOVAL, visual disturbance, eye pain, jaundice, sore throat or mouth ulcers. No skin rash or itching. No urinary frequency, urgency, hematuria, or dysuria. No myalgia, arthralgia, or joint swelling. No weakness, numbness, or confusion. GI per HPI. No polyuria, polydipsia, heat or cold intolerance. PAST MEDICAL HISTORY: Medical History[1] PAST SURGICAL HISTORY: Surgical History[2] SOCIAL HISTORY: Lives alone, with passing February 2024, has a son who lives in [place] and daughter that lives close by Retired from working at [employer] for 43 years No tobacco use Denies alcohol use No recreational drug use FAMILY HISTORY: Family History[3] MEDICATIONS: Occasional OTC acetaminophen for arthritis pain, no NSAIDs Prior to Admission medications Not on File Current Medications[4] ALLERGIES: Allergies[5] OBJECTIVE: Vitals: Vitals: 04/06/25 1157 04/06/25 1217 BP: 104/66 BP Location: Left arm Patient Position: Lying Pulse: 80 Resp: 19 Temp: 36.4 C (97.6 F) TempSrc: Temporal SpO2: 97% Weight: 200 lb (90.7 kg) Height: 5' 8 (1.727 m) General appearance: Alert and oriented, NAD, elderly appearing HEENT: NC/AT, PERRL, sclera anicteric, hard of hearing, pale Neck: Supple, normal ROM Respiratory: Normal respiratory effort. CTA Cardiovascular: Regular rate and rhythm Abdomen: Soft, non-tender, non-distended Neurologic: Grossly intact LABS: CBC: Recent Labs 04/05/25 1617 04/06/25 0334 WBC 10.0 10.3 RBC 2.83* 3.46* HGB 5.5* 7.6* HCT 20.7* 27.2* MCV 73.1* 78.6 RDW 19.9* 20.5* PLT 358 344 BMP: Recent Labs 04/05/25 1617 04/06/25 0334 NA 140 143 K 4.5 4.2 CL 105 104 CO2 27 26 BUN 24* 24* CREATININE 1.46* 1.44* GLUCOSE 108 98 CALCIUM 8.4* 8.2* ANIONGAP 8 13 LIVER PROFILE: Recent Labs 04/05/25 1617 04/06/25 0334 AST 22 25 ALT 7 6 BILITOT 0.5 1.7* ALKPHOS 65 63 PROT 6.4 6.1* IMAGING/PROCEDURES === 04/05/25 === CT ABDOMEN PELVIS WO IV CONTRAST - Impression - 1. Mural thickening involving the cecum and terminal ileum. These findings could be due to neoplasm or enterocolitis. Recommend follow-up endoscopy. 2. Colonic diverticulosis. Report Dictated on Electronically Signed By: Sergey Gooden MD Electronically Signed Date/Time: 04/06/2025 2:12 PM EDT IMPRESSION Mary Charles is a 89 y.o. male with no known past medical history as he has not been to a provider in many years other than cataracts and hard of hearing, who presents to the ED with progressive SOB and HAWKINS. Reports poor appetite, dysphagia and constipation. No abdominal pain, N/V, jaundice or GI bleeding. Work-up on admission with hgb 5.5, MCV 73.1, BNP 8,438 and imaging with finding of CHF and mural thickening involving the cecum and terminal ileum. TTE revealed severe LV systolic dysfunction with moderate MR and severely elevated RVSP. No prior EGD or colonoscopy. Problem List: Severe microcytic anemia - most likely chronic given clinical history, no reports of GI or other bleeding. There may be a nutritional component but CT findings of mural thickening of the cecum and TI are concerning for underlying malignancy vs chronic inflammation. Mural thickening involving the cecum and terminal ileum Dysphagia - progressive, reports to both liquids and solids. HFrEF - newly diagnosed SIENA RECOMMENDATIONS - Continue supportive cardiopulmonary care, Cardiology following - When medically optimized, recommend proceeding with EGD and colonoscopy for further evaluation. - The benefits, alternatives, and risks of the procedures including (but not exclusive to) pain, sore throat, bleeding, perforation, infection, nausea, vomiting, aspiration, hypoxia/hypotension/allergic reaction(s) due to sedatives, phlebitis, need for hospitalization, need for transfusions, need for antibiotic therapy, need for surgery, and likelihood of missing a lesion, were explained to the patient who is agreeable. - Given new diagnosis of CHF, timing will in part depend on his clinical course, Will re-evaluate tomorrow - Continue PPI for possible GERD related dysphagia - Further recommendations pending procedures. It has been a pleasure to participate in the care of this patient. Please do not hesitate to call with any questions. Kim Nieves MD [1] History reviewed. No pertinent past medical history. [2] History reviewed. No pertinent surgical history. [3] No family history on file. [4] Current Facility-Administered Medications Medication Dose Route Frequency Provider Last Rate Last Admin acetaminophen (Tylenol) tablet 650 mg 650 mg Oral q6h PRN Albaro Hernández MD Or acetaminophen (Tylenol) suppository 650 mg 650 mg Rectal q6h PRN Albaro Hernández MD atorvastatin (Lipitor) tablet 20 mg 20 mg Oral Nightly Cari Scherer MD carvedilol (Coreg) tablet 3.125 mg 3.125 mg Oral BID WC Cari Scherer MD furosemide (Lasix) injection 20 mg 20 mg IntraVENous PRN Albaro Hernández MD 20 mg at 04/05/25 2255 furosemide (Lasix) injection 40 mg 40 mg IntraVENous BID Albaro Hernández MD 40 mg at 04/06/25 1017 hydrALAZINE (Apresoline) tablet 25 mg 25 mg Oral TID Cari Scherer MD 25 mg at 04/06/25 1611 iron sucrose (Venofer) 200 mg in sodium chloride 0.9 % 100 mL IVPB 200 mg IntraVENous q24h Westley Martinez MD Stopped at 04/06/25 1302 LORazepam (Ativan) injection 0.5 mg 0.5 mg IntraVENous q4h PRN Vicente Houston MD 0.5 mg at 04/06/25 0255 ondansetron ODT (Zofran-ODT) disintegrating tablet 4 mg 4 mg Oral q8h PRN Albaro Hernández MD Or ondansetron (Zofran) injection 4 mg 4 mg IntraVENous q6h PRN Albaro Hernández MD pantoprazole (ProtoNix) EC tablet 40 mg 40 mg Oral qAM AC Albaro Hernández MD 40 mg at 04/06/25 1017 polyethylene glycol (PEG) 3350 (Miralax) packet 17 g 17 g Oral Daily PRN Albaro Hernández MD sodium chloride 0.9 % infusion 250 mL/hr IntraVENous PRN Albaro Hernández MD [5] No Known Allergies Associated Order(s): IP CONSULT TO CARDIOLOGY [facility] Consult Note Reason for Consult/Chief Complaint: Heart failure Consulting MD: Dr. Martinez History of Present Illness: Mary Charles is a 89 y.o. male admitted with worsening SOB and hypoxia, found to have congestion on chest x ray and peripheral edema. He was started on lasix and today he reports improvement in SOB and edema. He lives alone and no prior reported cardiac issues. ECG technically difficult possible sinus rhythm with PACs. No significant troponin level and elevated NT pro BNP, anemia Hb 5.5 s/p PRBCs up to 7.8 and CKD Cr 1.44. TTE revealed severe LV systolic dysfunction with moderate MR and severely elevated RVSP. Past Medical History: Medical History[1] Past Surgical History: Surgical History[2] Family History: Family History[3] Social History: Social History[4] Medications: Scheduled Meds[5] Allergies: Patient has no known allergies. Reviewed Review of Systems: All other systems were reviewed and are negative other than as noted in the HPI. Physical Examination: Vitals: Blood pressure 104/66, pulse 80, temperature 36.4 C (97.6 F), temperature source Temporal, resp. rate 19, height 5' 8 (1.727 m), weight 200 lb (90.7 kg), SpO2 97%. Intake/Output Summary (Last 24 hours) at 04/06/2025 1301 Last data filed at 04/06/2025 0215 Gross per 24 hour Intake 1099.33 ml Output 800 ml Net 299.33 ml Wt Readings from Last 3 Encounters: 04/06/25 200 lb (90.7 kg) Neck: no JVD. Respiratory: Lungs are clear. No rales or wheezes. Respiratory effort is normal and symmetrical bilaterally; Good air movement bilaterally. Heart: RRR; Normal S1 and S2. no murmur; No rub; no gallop. Extremities/Skin: 2+ LE edema; Skin warm to touch and well perfused Laboratory Tests: Results from last 7 days Lab Units 04/06/25 0334 04/05/25 1617 WBC AUTO 10*3/uL 10.3 10.0 HEMOGLOBIN g/dL 7.6* 5.5* HEMATOCRIT % 27.2* 20.7* MCV fL 78.6 73.1* PLATELETS 10*3/uL 344 358 Lab Results Component Value Date GLUCOSE 98 04/06/2025 CALCIUM 8.2 (L) 04/06/2025 NA 143 04/06/2025 K 4.2 04/06/2025 CO2 26 04/06/2025 CL 104 04/06/2025 BUN 24 (H) 04/06/2025 CREATININE 1.44 (H) 04/06/2025 No results found for: HGBA1C Lab Results Component Value Date TSH 10.19 (H) 04/05/2025 Lab Results Component Value Date CHOL 89 04/05/2025 Lab Results Component Value Date HDL 29 (L) 04/05/2025 Lab Results Component Value Date LDLCALC 48 04/05/2025 Lab Results Component Value Date TRIG 60 04/05/2025 Assessment/Plan HFrEF: new onset, uncertain etiology/but ICM is suspected, he is perfused, volume overloaded. Not a candidate for ischemic evaluation due to severe anemia and frailty. Conservative, medical management. -continue lasix 40 mg IV bid -start hydralazine 25 mg tid -start carvedilol 3.125 mg bid, slowly titrate as tolerated -if renal function tolerates we will consider addition of losartan and spironolactone -not a good candidate for aspirin due to severe anemia/bleeding risk -start low dose atorvastatin 20 mg daily Consider palliative approach Cari Scherer MD, [facility], [facility] DATE of SERVICE: 04/06/2025 [1] History reviewed. No pertinent past medical history. [2] History reviewed. No pertinent surgical history. [3] No family history on file. [4] [5] furosemide, 40 mg, IntraVENous, BID iron sucrose, 200 mg, IntraVENous, q24h pantoprazole, 40 mg, Oral, qAM AC documented in this encounter [facility] 04-13-2025 Hospital Discharg e instructions LOURDES Cervantes CNP - 04/13/2025 12:17 PM EDT Please call [employer] at [phone] to arrange for home NIV once stable to discharge from nursing facility China Vogel RN - 04/13/2025 12:38 PM EDT Images from the original note were not included. Continuity of Care Form Patient Name: Mary Charles : 1935 Admit date: 04/05/2025 Discharge date: 04/17/2025 Code Status Order: Full Code Advance Directives: N Admitting Physician: Albaro Hernández MD PCP: No primary care provider on file. 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 No Past Surgical History: History reviewed. No pertinent surgical history. Immunization History: Immunization History Administered Date(s) Administered Moderna SARS-CoV-2 Vaccination 11/07/2020, 12/05/2020 Active Problems: Medical Problems Problem List * (Principal) Acute congestive heart failure, unspecified heart failure type (HCC) Isolation/Infection: No active isolations No active infections Nurse Assessment: Last Vital Signs: BP (!) 101/44 (BP Location: Left arm, Patient Position: Lying) Pulse 65 Temp 36.7 C (98.1 F) (Temporal) Resp 20 Ht 5' 8 (1.727 m) Wt 206 lb 9.6 oz (93.7 kg) SpO2 95% BMI 31.41 kg/m Last documented pain score (0-10 scale): Last Weight: Wt Readings from Last 1 Encounters: 04/13/25 206 lb 9.6 oz (93.7 kg) Mental Status: GLORY Patient Mental Status: oriented, alert, coherent, logical, thought processes intact, and able to concentrate and follow conversation IV Access: GLORY IV Access: None Nursing Mobility/ADLs: Walking Minimal assistance Transfer Minimal assistance Bathing Minimal assistance Dressing Minimal assistance Toileting Total assistance Feeding Independent Superintendent Meters Minimal assistance Med Delivery yes Wound Care Documentation and Therapy: Wound/Incision 04/08/25 Skin Tear Forearm Anterior;Right (Active) Wound Image 04/08/25 2230 Site Assessment Unable to assess 04/11/25 1530 Drainage Description Unable to assess 04/11/25 1530 Odor None 04/11/25 1530 Drainage Amount Unable to assess 04/11/25 1530 Treatments Cleansed 04/13/25 0844 Primary Dressing Foam 04/13/25 0844 Dressing Status New dressing 04/13/25 0844 Number of days: 4 Wound/Incision 04/08/25 Skin Tear Forearm Left;Proximal;Posterior (Active) Site Assessment Unable to assess 04/11/25 1530 Drainage Description Unable to assess 04/11/25 1530 Odor None 04/11/25 1530 Drainage Amount Unable to assess 04/11/25 1530 Treatments Cleansed 04/13/25 0844 Primary Dressing Foam 04/13/25 0844 Dressing Status New dressing 04/13/25 0844 Number of days: 4 Puncture Site 04/09/25 Back Left (Active) Location Other (Comment) 04/10/25 0842 Site Assessment No redness, drainage, swelling or hematoma 04/11/251999 Dressing Applied Transparent occlusive dressing 04/11/251999 Multiple Puncture Sites No 04/11/251999 Number of days: 4 Puncture Site 04/09/25 Back Lateral;Right (Active) Location Other (Comment) 04/11/25 0800 Site Assessment No redness, drainage, swelling or hematoma 04/11/251999 Dressing Applied Transparent occlusive dressing 04/11/251999 Multiple Puncture Sites No 04/11/25 0800 Number of days: 3 Elimination: Continence: Bowel: yes Bladder: yes Urinary Catheter: None Colostomy/Ileostomy/Ileal Conduit: None Date of Last BM: 04/17/2025 Intake/Output Summary (Last 24 hours) at 04/13/2025 1238 Last data filed at 04/13/2025 0845 Gross per 24 hour Intake 300 ml Output -- Net 300 ml I/O last 3 completed shifts: In: 240 (2.6 mL/kg) [P.O.:240] Out: 650 (6.9 mL/kg) [Urine:650 (0.2 mL/kg/hr)] Weight: 93.7 kg Safety Concerns: none Impairments/Disabilities: none Nutrition Therapy: Current Nutrition Therapy: Oral diet: low sodium (3-4gm) Routes of Feeding: oral Liquids: no restrictions Daily Fluid Restriction: no Last Modified Barium Swallow with Video (Video Swallowing Test): not done Treatments at the Time of Hospital Discharge: Respiratory Treatments: none Oxygen Therapy: is on oxygen at 2 L/min per nasal cannula. Ventilator: BiPAP 12/6 cm H2O at bedtime with nasal pillow mask size small Rehab Therapies: physical therapy, occupational therapy, and palliative Weight Bearing Status/Restrictions: no restriction Other Medical Equipment (for information only, NOT a DME order): bedside commode, walker, and wheelchair Other Treatments: no Patient's personal belongings (please select all that are sent with patient): none RN SIGNATURE: MANAGEMENT/SOCIAL WORK SECTION Inpatient Status Date: Discharging to Facility/ Agency Name: [facility] Address:[address] [place] [address] Phone:[phone] Dialysis Facility (if applicable) Name: Address: Dialysis Schedule: Phone: Fax: Transfer Station Operator/Pharmacy Manager signature: ICIAN SECTION Name: Mary Charles Prognosis: fair Condition at Discharge: stable Rehab Potential (if transferring to Rehab): fair Recommended Labs or Other Treatments After Discharge: BiPAP 12/6 cm H2O bedtime with nasal pillow mask size small CBC, CMP in 3 days and in 1 week. CXR in 4 weeks to assess pleural effusion Keep follow up appointment with cardiology and pulmonology as an outpatient. [facility]. If stable clinically , follow up in 1-2 month for possible EGD, colonoscopy The individual is being admitted to a nursing facility directly from an [facility] or a unit of a [facility] that is not operated by or licensed by [facility] under section 5119.14 or 5160-3-15.1 5 The individual requires the level of services provided by a nursing facility for the condition for which he or she was treated in the hospital and, Physician Certification: I certify the above information and transfer of Mary Charles is necessary for the continuing treatment of the diagnosis listed and that he requires [facility] facility for less than 30 days. Update Admission H&P: No change in H&P PHYSICIAN SIGNATURE: documented in this encounter [facility] 04-09-2025 Note [facility] 04-09-2025 Procedure note Associated Ord er(s): Thoracentesis Post-Procedure Diagnose(s): Acute congestive heart failure, unspecified heart failure type (HCC) Images from the original note were not included. Thoracentesis Date/Time: 04/09/2025 3:57 PM Performed by: Precious Lewis MD Authorized by: Precious Lewis MD Consent: The indications, risks, benefits, alternatives to the procedure were explained to the patient/surrogate decision maker and their questions answered. Consent was obtained to proceed with the procedure. Timeout: Completed immediately prior to the start of the procedure which included verification of the correct patient, correct site and agreement on the procedure to be done. Indications: Indications: pleural effusion (right) Anesthetic: Local anesthetic used: lidocaine without epinephrine Preparation: Patient was prepped and draped in usual sterile fashion Skin prepped: skin prepped with chlorhexidine Procedure details: Patient position: sitting Location: Right Intercostal space: 7th Number of attempts: 1 Ultrasound guidance: yes Post-procedure details: Post-procedure: occlusive dressing applied Description/Findings: 600 mL of serous fluid drained from pleural space. Specimen(s) sent to lab: Yes Follow-up chest x-ray: ordered Estimated blood loss: < 5 mL Complications: No apparent complications Assistants & Supervision: I personally performed the procedure documented as signed by this procedure note Associated Order(s): Thoracentesis Post-Procedure Diagnose(s): Acute congestive heart failure, unspecified heart failure type (HCC) Images from the original note were not included. Thoracentesis Date/Time: 04/09/2025 9:07 AM Performed by: Precious Lewis MD Authorized by: Precious Lewis MD Consent: The indications, risks, benefits, alternatives to the procedure were explained to the patient/surrogate decision maker and their questions answered. Consent was obtained to proceed with the procedure. Timeout: Completed immediately prior to the start of the procedure which included verification of the correct patient, correct site and agreement on the procedure to be done. Indications: Indications: pleural effusion Anesthetic: Local anesthetic used: lidocaine without epinephrine Preparation: Patient was prepped and draped in usual sterile fashion Skin prepped: skin prepped with chlorhexidine Procedure details: Patient position: sitting Location: Left Intercostal space: 8th Number of attempts: 1 Ultrasound guidance: yes Post-procedure details: Post-procedure: occlusive dressing applied Description/Findings: 1000 mL of serous fluid drained from pleural space. Specimen(s) sent to lab: Yes Follow-up chest x-ray: completed Estimated blood loss: < 5 mL Complications: No apparent complications Assistants & Supervision: I personally performed the procedure documented as signed by this procedure note documented in this encounter [facility] 04-09-2025 Note [facility] 04-05-2025 Note [facility] 04-05-2025 History and physical note Attending History and Physical Admit Date: 04/05/2025 PCP: No primary care provider on file. CHIEF COMPLAINT: SOB Reason for Admission: SOB History Obtained From: patient HISTORY OF PRESENT ILLNESS: Mary is a 89 y.o. male with past medical history below who presents with chief complaint listed above. Lives alone after his a year ago. Progressive SOB with exertion for about a year, lately was not able to go to restroom without having to catch breath. Cough with occasional white phlegm. No fever or chills. Has leg edema Denies any chest pain. No abdominal pain. No urinary symptoms. No focal weakness. Says his BM are Ok, mayhave been black once in a while. . Will admit for further evaluation and management. Past Medical History: Medical History[1] Past Surgical History: Surgical History[2] Social History: Social History Socioeconomic History Marital status: Spouse name: Not on file Number of children: Not on file Years of education: Not on file Highest education level: Not on file Occupational History Not on file Tobacco Use Smoking status: Not on file Smokeless tobacco: Not on file Substance and Sexual Activity Alcohol use: Not on file Drug use: Not on file Sexual activity: Not on file Other Topics Concern Not on file Social History Narrative Not on file Social Drivers of Health Financial Resource Strain: Not on file Food Insecurity: Not on file Transportation Needs: Not on file Physical Activity: Not on file Stress: Not on file Social Connections: Not on file Intimate Partner Violence: Not on file Housing Stability: Not on file Family History: Family History[3] Medications Prior to Admission: Current Medications[4] Medications Reconciliation: Medications were reviewed in chart but unable to verify accurate with patient Allergies: Allergies[5] REVIEW OF SYSTEMS: 10 point ROS obtained, as per HPI, otherwise NEG Vitals: BP 108/62 (BP Location: Left arm, Patient Position: Sitting) Pulse 82 Temp 36.3 C (97.4 F) (Oral) Resp 18 Ht 5' 8 (1.727 m) Wt 200 lb (90.7 kg) SpO2 99% BMI 30.41 kg/m BMI Classification: Pulse Ox: SpO2 Av.7 % Min: 86 % Max: 99 % Supplemental O2: O2 Flow Rate (L/min): 2 L/min PHYSICAL EXAM: Physical Exam Constitutional: Appearance: Normal appearance. Cardiovascular: Rate and Rhythm: Normal rate and regular rhythm. Heart sounds: Normal heart sounds. Pulmonary: Effort: Pulmonary effort is normal. Breath sounds: Normal breath sounds. Abdominal: General: Bowel sounds are normal. Palpations: Abdomen is soft. Musculoskeletal: Right lower leg: Edema present. Left lower leg: Edema present. Neurological: General: No focal deficit present. Mental Status: He is alert and oriented to person, place, and time. DATA: CBC: Recent Labs 04/05/25 1617 WBC 10.0 RBC 2.83* HGB 5.5* HCT 20.7* MCV 73.1* RDW 19.9* PLT 358 BMP: Recent Labs 04/05/25 1617 NA 140 K 4.5 CL 105 CO2 27 BUN 24* CREATININE 1.46* GLUCOSE 108 CALCIUM 8.4* ANIONGAP 8 LIVER PROFILE: Recent Labs 04/05/25 1617 AST 22 ALT 7 BILITOT 0.5 ALKPHOS 65 PROT 6.4 PT/INR: No results for input(s): PROTIME, INR in the last 72 hours. CARDIAC ENZYMES: No results for input(s): TROPONINI in the last 72 hours. Procalcitonin: No results found for: PROCAL Urine Culture: No results found for this or any previous visit. COVID-19 PCR: No results for input(s): COVID19 in the last 72 hours. I reviewed: [x] laboratory results [x] radiographic results At the time of today's encounter. Pt was advised of the results. Data: (CAT1) Reviewed 1 notes from different specialty or health system (each=1). (LOW: 2x CAT1 or independent historian MOD: 3x CAT1 or 1x CAT3 EXTENSIVE: 3x CAT1 and 1x CAT3) Assessment Discussed management with the ED provider and agree with hospitalization. Acute, acute on chronic, unstable/uncontrolled chronic problems/diagnoses: Dyspnea on exertion Acute respiratory insuffiencey Left pleural effusion Acute CHF- LE edema, left pleural effusion, pulmonary congestion on CXR, elevated BNP Acute renal insuffiencey Anemia , microcytic hypochromic Has not seen doctor for few years. Stable chronic problems affecting care, new non-acute diagnoses: Plan As a result of the above findings & factors, the following mgmt was pursued: - admit to tele - cycle troponin - ECHO - lasix 40 mg BID - TSH, iron, ferritin, TIBC, retics, haptoglobin, vitamin b12, folate. LFT - CT chest - CT abdomen - Protonix 40 mg daily - stool occult blood - lasix 40 mg BID - monitor renal function, , output and electrolytes - if significant pl effusion in CT thoracentesis - consult cardiology and GI - labs in am - am labs, replace lytes prn - PT/OT/CM/SW - delirium precautions: increase activity - DVT prophylaxis: encourage ambulation Advance Directive: No Order Anticipated Discharge No emergency contact information on file. [1] History reviewed. No pertinent past medical history. [2] History reviewed. No pertinent surgical history. [3] No family history on file. [4] Current Facility-Administered Medications: furosemide (Lasix) injection 20 mg, 20 mg, IntraVENous, PRN, Rowena Aguilar, DO sodium chloride 0.9 % infusion, 250 mL/hr, IntraVENous, PRN, Rowena Aguilar, DO No current outpatient medications on file. [5] No Known Allergies documented in this encounter [facility] Evaluation note Diagnosis Acute congestive heart failure, unspecified heart failure type (HCC)- Primary Acute congestive heart failure, unspecified heart failure type (HCC) Anemia, unspecified type Shortness of breath Hypoxia Hypoxemia CHF (congestive heart failure), NYHA class I, acute on chronic, combined (HCC) [facility] Diagnosis Acute congestive heart failure, unspecified heart failure type (HCC)- Primary [facility] Diagnosis Chronic systolic heart failure (HCC)- Primary Chronic systolic heart failure 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 Pleural effusion Unspecified pleural effusion Acute kidney injury superimposed on chronic kidney disease (HCC) (HCC) 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 chronic kidney disease (HCC) PAC (premature atrial contraction) Supraventricular premature beats Abnormal CAT scan Other nonspecific (abnormal) findings on radiological and other examinations of body structure [facility] Chronic systolic heart failure (HCC)- Primary Chronic systolic heart failure 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 Pleural effusion Unspecified pleural effusion Acute kidney injury superimposed on chronic kidney disease (HCC) (HCC) 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 chronic kidney disease (HCC) PAC (premature atrial contraction) Supraventricular premature beats Abnormal CAT scan Other nonspecific (abnormal) findings on radiological and other examinations of body structure Palliative care encounter- Primary Pleural effusion Unspecified pleural effusion Acute on chronic heart failure, unspecified heart failure type (HCC) Debility Unspecified debility [facility] Diagnosis Chronic systolic heart failure (HCC)- Primary Chronic systolic heart failure 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 Pleural effusion Unspecified pleural effusion Acute kidney injury superimposed on chronic kidney disease 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 chronic kidney disease (CMS/HCC) PAC (premature atrial contraction) Supraventricular premature beats Abnormal CAT scan Other nonspecific (abnormal) findings on radiological and other examinations of body structure Chronic systolic heart failure (HCC)- Primary Chronic systolic heart failure [facility] Diagnosis Chronic systolic heart failure (HCC)- Primary Chronic systolic heart failure 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 Pleural effusion Unspecified pleural effusion Acute kidney injury superimposed on chronic kidney disease 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 chronic kidney disease (CMS/HCC) PAC (premature atrial contraction) Supraventricular premature beats Abnormal CAT scan Other nonspecific (abnormal) findings on radiological and other examinations of body structure Anemia due to chronic kidney disease, unspecified CKD stage- Primary documented in this encounter [facility] Chief Complaint and Reason for Visit Chief Complaint MODERNA VACCINE Assessments No Assessments Information Available Advance Directives Date Activated Date Inactivated Comments 04/05/2025 8:50 PM 04/17/2025 3:57 PM Date Activated Date Inactivated Comments 04/05/2025 8:50 PM 04/17/2025 3:57 PM Summary Purpose Family History No Family History Records FoundNo Family History Records Found Additional Source Comments Reason for Visit (unrecogniz ed section and content) Reason Comments Leg Swelling Shortness of Breath Pt arrived to triage for shortness of breath and swelling legs. Pt endorses increased work of breath, weakness, confusion and no appetite. Specialty Diagnoses / Procedures Referred By Elizabeth t Referred To Contact Diagnoses Shortness of breath Hypoxia CHF (congestive heart failure), NYHA class I, acute on chronic, combined (HCC) Anemia, unspecified type Acute congestive heart failure, unspecified heart failure type (HCC) Procedures .. Albaro Hernández MD [address] [place] [address] Phone: tel: fax: [facility] Card[facility] Progressive [facility] Unit [address] [place] [address] Phone: tel: Referral ID Status Reason Start Date Expiration Date Visits Re quested Visits Authorized 1 Reason Comments Hospital Follow-up Congestive Heart Failure Reason Comments Follow-up 6 Week Reason Comments Other Patient here followi ng bloodwork showing low hemoglobin Scheduled Active and Recently Administ ered Medications (unrecognized section and content) Medication Order 04/15/2025 04/16/2025 04/17/2025 atorvastatin (Lipitor) tablet 20 mg 20 mg, Oral, Nightly, First dose on Sat04/06/25 at 2100 2023 (Given - Provider: Jose Tinoco, RN) 2105 (Given - Provider: Lynne Calzada RN) furosemide (Lasix) injection 80 mg (CANCELED) 80 mg, IntraVENous, 2 times daily, First dose on Sat04/14/25 at 1230, Hold if systolic blood pressure less than 90 or diastolic blood pressure less than 60, heart rate less than 60 0914 (Given - Provider: Kourtney Jordan, RN)2023 (Given - Provider: Jose Tinoco, RN) hydrALAZINE (Apresoline) tablet 10 mg 10 mg, Oral, 3 times daily, First dose (after last modification) on Sat04/15/25 at 0900, Hold for systolic less than 110, On hold since 04/17/2025 at 0739 until manually unheld 09 (Not Given - Provider: Kourtney Jordan, RN - Reason: Order parameters not met)153 (Not Given - Provider: Kourtney Jordan, RN - Reason: Order parameters not met)2000 (Not Given - Provider: Jose Tinoco RN - Reason: Order parameters not met - Comment: BP 95/58) 0836 (Given - Provider: Danielle Fu, RN)1402 (Not Given - Provider: Danielle Fu RN - Reason: Order parameters not met)210 (Not Given - Provider: Lynne Calzada RN - Reason: Other - Comment: low BP) 0739 (Held by provider - Provider: Albaro Hernández MD - Reason: Other)0900 (Dose Auto Held - Provider: Albaro Hernández MD)1551 (Unheld by provider - Provider: Automatic Discharge Provider) metoprolol succinate XL (Toprol-XL) 24 hr tablet 25 mg 25 mg, Oral, Daily, First dose on 04/10/25 at 0900, Do not crush or chew. 0914 (Given - Provider: Kourtney Jordan, RN) 0836 (Given - Provider: Danielle Fu RN) 0854 (Given - Provider: China Vogel RN) pantoprazole (ProtoNix) EC tablet 40 mg 40 mg, Oral, Daily before breakfast, First dose on Sat04/06/25 at 0600, Do not crush, chew, or split. 0606 (Given - Provider: Ana María Grace RN) 0503 (Given - Provider: Jose Tinoco RN) 0626 (Given - Provider: Lynne Calzada RN) senna-docusate sodium (Senokot-S) 8.6-50 MG tablet 2 tablet 2 tablet, Oral, 2 times daily, First dose on 04/10/25 at 0630 0606 (Not Given - Provider: Ana María Grace RN - Reason: Other - Comment: patient having loose motion)1534 (Not Given - Provider: Kourtney Jordan RN - Reason: Other - Comment: lose stool) 0503 (Not Given - Provider: Jose Tinoco RN - Reason: Patient/family refused)1402 (Given - Provider: Danielle Fu RN) 0854 (Given - Provider: China Vogel RN)1500 (Canceled Entry - Provider: Automatic Discharge Provider - Comment: Automatically canceled at discontinue of medication order) spironolactone (Aldactone) tablet 25 mg 25 mg, Oral, Daily, First dose on Sat04/13/25 at 1630 0914 (Given - Provider: Kourtney Jordan, RN) 0836 (Given - Provider: Danielle Fu, LUCIA) 0854 (Given - Provider: China Vogel, LUCIA) torsemide (Demadex) tablet 40 mg 40 mg, Oral, Daily, First dose (after last reorder) on Sat04/16/25 at 0900 0835 (Given - Provider: Danielle Fu, LUCIA) 0854 (Given - Provider: China Vogel, LUCIA) PRN Medication Order 04/15/2025 04/16/2025 04/17/2025 acetaminophen (Tylenol) suppository 650 mg(Linked Group 1) 650 mg, Rectal, Every 6 hours PRN, fever, For temp greater than 100.4 F (38 C), Starting on Sat04/05/25 at 2050, Administer if oral route cannot be used. Maximum dose of acetaminophen is 4000 mg from all sources in 24 hours. acetaminophen (Tylenol) tablet 650 mg(Linked Group 1) 650 mg, Oral, Every 6 hours PRN, mild pain (1-3), fever, For temp greater than 100.4 F (38 C), Starting on Sat04/05/25 at 2050, Maximum dose of acetaminophen is 4000 mg from all sources in 24 hours. lidocaine (Uro-Jet) 2 % gel Urethral, PRN, pain associated with garcía catheter placement, Starting on Ellen 04/08/25 at 2250 naloxone (Narcan) injection 0.4 mg 0.4 mg, IntraVENous, Every 5 min PRN, opioid reversal, respiratory depression, Starting on Sat04/09/25 at 0906, +++ For RR <10, pinpoint pupils, over sedation for opioid reversal - MUST notify publication designer provider immediately after first dose, may give IM or SQ if no IV access +++ ondansetron (Zofran) injection 4 mg(Linked Group 2) 4 mg, IntraVENous, Every 6 hours PRN, nausea, vomiting, Starting on Sat04/05/25 at 2050, 1st Line. Give IV if patient is unable to take orally. If inadequate response within 60 minutes, proceed to next-line agent or contact provider if no further options ordered. ondansetron ODT (Zofran-ODT) disintegrating tablet 4 mg(Linked Group 2) 4 mg, Oral, Every 8 hours PRN, nausea, vomiting, Starting on Sat04/05/25 at 2049, 1st Line. If inadequate response within 60 minutes, proceed to next-line agent or contact provider if no further options ordered. Patient should allow tablet to dissolve on tongue. Do not remove from blister pack until just before administering. polyethylene glycol (PEG) 3350 (Miralax) packet 17 g 17 g, Oral, Daily PRN, constipation, Starting on Sat04/16/25 at 0000 Linked Groups Order Group 1: acetaminophen (Tylenol) tablet 650 mgJump to med 650 mg, Oral, Every 6 hours PRN, mild pain (1-3), fever, For temp greater than 100.4 F (38 C), Starting on Sat04/05/25 at 0, Maximum dose of acetaminophen is 4000 mg from all sources in 24 hours. Or acetaminophen (Tylenol) suppository 650 mgJump to med 650 mg, Rectal, Every 6 hours PRN, fever, For temp greater than 100.4 F (38 C), Starting on Sat04/05/25 at 0, Administer if oral route cannot be used. Maximum dose of acetaminophen is 4000 mg from all sources in 24 hours. Group 2: ondansetron ODT (Zofran-ODT) disintegrating tablet 4 mgJump to med 4 mg, Oral, Every 8 hours PRN, nausea, vomiting, Starting on Sat04/05/25 at 0, 1st Line. If inadequate response within 60 minutes, proceed to next-line agent or contact provider if no further options ordered. Patient should allow tablet to dissolve on tongue. Do not remove from blister pack until just before administering. Or ondansetron (Zofran) injection 4 mgJump to med 4 mg, IntraVENous, Every 6 hours PRN, nausea, vomiting, Starting on Sat04/05/25 at 0, 1st Line. Give IV if patient is unable to take orally. If inadequate response within 60 minutes, proceed to next-line agent or contact provider if no further options ordered. PRN Medication Order 06/20/2025 06/21/2025 06/22/2025 sodium chloride 0.9 % infusion 250 mL/hr, IntraVENous, Administer over 10 Minutes, As needed, For use in priming line prior to transfusion (prime via gravity) and flush line post transfusion, Starting on Sat06/21/25 at 2020, For 1 dose, For use in priming line prior to transfusion (prime via gravity) and flush line post transfusion ONLY. Discontinue once line has been cleared of remaining blood product. Care Teams (unrecognized sec tion and content) Chief Inspector Relationship Specialty Start Date End Date Aliya Tadeo RN Regulatory Scientist Manager 04/09/25 Chief Inspector Relationship Specialty Start Date End Date Aliya Tadeo RN Regulatory Scientist Manager 04/09/25 Chief Inspector Relationship Specialty Start Date End Date Aliya Tadeo RN Registered Nurse Regulatory Scientist Manager 04/09/25 Chief Inspector Relationship Specialty Start Date End Date Aliya Tadeo RN Registered Nurse Regulatory Scientist Manager 04/09/25 Chief Inspector Relationship Specialty Start Date End Date Aliya Tadeo RN Registered Nurse Regulatory Scientist Manager 04/09/25 (unrecognized sect ion and content) No Status Records FoundNo Status Records Found INFORMATION SOURCE (unrecogn ized section and content) DATE CREATED AUTHOR 06/21/2025 [facility] DATE CREATED AUTHOR AUTHOR'S ORGANIZ ATION 06/23/2025 [facility] FOR RECORDS PERTAINING TO PATIENTS WHO ARE OR HAVE BEEN ENROLLED IN A CHEMICAL DEPENDENCY/SUBSTANCEABUSE PROGRAM, SOME INFORMATION MAY BE OMITTED. This clinical summary was aggregated from multiple sources. Caution should be exercised in using it in the provision of clinical care. This summary normalizes information from multiple sources, and as a consequence, information in this document may materially change the coding, format and clinical context of patient data. In addition, data may be omitted in some cases. CLINICAL DECISIONS SHOULD BE BASED ON THE PRIMARY CLINICAL RECORDS. [employer] provides no warranty or guarantee of the accuracy or completeness of information in this document.
[2025-06-24 09:49] LABS: Anion Gap 12 (5-15); BUN 47 mg/dL (4-19); BUN/Creat Ratio 25.8 RATIO (10-20); Calcium,Total 8.4 mg/dL (7.6-11.0); Carbon Dioxide 26.9 mmol/L (21.0-32.0); Chloride 97 mmol/L (98-108); Glucose 87 mg/dL (70-99); Potassium 3.8 mmol/L (3.3-5.1)
== END ==
LOC: OLS.ACH 05:00
PROVIDERS: PCP Internal Medicine; Visit Provider Internal Medicine
DX: I50.42 Chronic combined systolic (congestive) and diastolic (congestive) heart failure (principal)
CPT/HCPCS: 36415; 80048

== ENCOUNTER → 2025-06-28 05:00 | Outpatient (REF) | payer MEDICARE, SELFPAY ==
[2025-06-28 08:43] LABS: Anion Gap 10 (5-15); BUN 40 mg/dL (4-19); BUN/Creat Ratio 23.4 RATIO (10-20); Calcium,Total 8.4 mg/dL (7.6-11.0); Carbon Dioxide 27.4 mmol/L (21.0-32.0); Chloride 100 mmol/L (98-108); Glucose 88 mg/dL (70-99); Potassium 3.9 mmol/L (3.3-5.1)
== END ==
LOC: OLS.ACH 05:00
PROVIDERS: PCP Internal Medicine; Visit Provider Internal Medicine
DX: N18.30 Chronic kidney disease, stage 3 unspecified (principal)
CPT/HCPCS: 36415; 80048

== ENCOUNTER → 2025-07-05 04:00 | Outpatient (REF) | payer MEDICARE, SELFPAY ==
--- OUTSIDE RECORDS SUMMARY | 2025-07-05 03:46 | XMS RPT_ITS | CCD ---
Author Organization [facility] CliniSyhi Care Team Providers Care Biochemical Engineer Name Role Phone Carlyle MYERS, Aliya Unavailable Unavailable Yelena MENSAH, Spencer Attending Unavailable Ghourbrial, Negro Primary Care Unavailable Depdebo MAKENNA, Spencer Attending Unavailable Ghourbrial, Negro Primary Care Unavailable Ghourbrial, Negro Primary Care Unavailable DepSpencer Enamorado Attending Unavailable SAMEBER ESPINOZA Attending Unavailable GOMBASHSAGAR Attending Unavailable PRECIOUS LEWIS Consulting Unavailable CLARA, ALBARO Attending Unavailable CLARA, ALBARO Admitting Unavailable EBER HESS Attending Unavailable ALEJANDRO QUEEN Attending Unavailable Unavailable Unavailable Unavailable Medications Current Medications Medication Drug Class(es) Dates Sig (Normalized) Sig (Original) atorvastatin 20 mg oral tablet (12 sources) HMG-CoA Reductase Inhibitor Start: 04-17-2025 End: 04-17-2026 take 1 tablet by mouth once daily atorvastatin (Lipitor) 20 MG tablet Take 1 tablet (20 mg) by mouth Nightly. 30 tablet 1 04/17/2025 04/17/2026 Active Start: 04-06-2025 End: 04-17-2025 docusate sodium 50 mg / sennosides, prison 8.6 mg oral tablet (12 sources) Start: 04-17-2025 End: 04-17-2026 take 2 tablets by mouth twice daily senna-docusate sodium (Senokot-S) 8.6-50 MG tablet Take 2 tablets by mouth 2 times daily. 120 tablet 11 04/17/2025 04/17/2026 Active Start: 04-10-2025 End: 04-17-2026 24 hr metoprolol succinate 25 mg extended release oral tablet (12 sources) beta-Adrenergic Adán Start: 04-10-2025 End: 04-18-2026 take 1 tablet by mouth once daily metoprolol succinate XL (Toprol-XL) 25 MG 24 hr tablet Take 1 tablet (25 mg) by mouth daily. Do not crush or chew. 30 tablet 11 04/18/2025 04/18/2026 Active torsemide (12 sources) Loop Diuretic Start: 04-18-2025 End: 04-18-2026 [...] 04-06-2025 End: 04-08-2025 Start: 04-05-2025 End: 04-12-2025 hydrALAZINE hydrochloride 10 mg oral tablet (14 sources) Arteriolar Vasodilator Start: 04-15-2025 End: 04-17-2026 take 1 tablet by mouth three times daily hydrALAZINE (Apresoline) 10 MG tablet Take 1 tablet (10 mg) by mouth 3 times daily. 90 tablet 1 04/17/2025 06/25/2025 Discontinued (Other) Start: 04-06-2025 End: 04-15-2025 10 ml lidocaine hydrochlorid e 10 mg/ml [...] Start: 04-05-2025 End: 04-06-2025 polyethylene glycol 3350 84610 mg powder for oral solution (4 sources) Osmotic Laxative Start: 04-10-2025 End: 04-17-2025 take 17 g by mouth every twenty-four hours as needed for constipation microencapsulated potassium chloride 10 meq extended release oral tablet (6 sources) Start: 04-13-2025 End: 04-13-2025 Start: 04-10-2025 End: 04-10-2025 Start: 04-08-2025 End: 04-08-2025 50 ml sodium chloride 9 mg/ml injection (2 sources) Start: 06-21-2025 End: 06-22-2025 [...] has been cleared of remaining blood product. spironolactone 25 mg oral tablet (12 sources) Aldosterone Antagonist Start: 04-13-2025 End: 04-18-2026 take 1 tablet by mouth once daily spironolactone (Aldactone) 25 MG tablet Take 1 tablet (25 mg) by mouth daily. 30 tablet 11 04/18/2025 06/25/2025 Discontinued (Other) (6 sources) Start: 04-06-2025 End: 04-08-2025 Start: [...] te Episodic/Chronic Acute and unspecified renal failure (10 sources) Acute renal failure syndrome; Translations: [Acute kidney failure, unspecified] Onset: 05-03-2025 05-03-2025 Episodic Cardiac dysrhythmias (10 sources) Premature atrial contraction; Translations: [Atrial premature depolarization] Onset: 05-03-2025 05-03-2025 Chronic Chronic kidney disease (4 sources) Anemia in chronic kidney disease; Translations: [Chronic kidney disease, unspecified] Onset: 05-03-2025 06-22-2025 Chronic Chronic kidney disease (2 sources) Chronic kidney disease; Translations: [Chronic kidney disease, stage 3b (HCC)] Onset: 05-03-2025 Congestive heart failure; nonhypertensive (20 sources) Acute congestive heart failure; Translations: [Heart failure, unspecified] Onset: 04-05-2025 04-05-2025 Chronic Coronary atherosclerosis and other heart disease (10 sources) Coronary arteriosclerosis; 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] Onset: 05-03-2025 05-03-2025 Chronic Deficiency and other anemia (8 sources) Anemia co-occurrent and due to chronic [...] conditions (not mental disorders or infectious disease) (10 sources) Computed tomography result abnormal; Translations: [Abnormal findings on diagnostic imaging of other specified body structures] Onset: 05-03-2025 05-03-2025 Chronic Pleurisy; pneumothorax; pulmonary collapse (11 sources) Pleural effusion; Translations: [Pleural effusion, not elsewhere classified] Onset: 05-03-2025 05-03-2025 Episodic Results Test Name Value Interpretation Reference Range Facility Progress Noteon 06-30-2025 Progress Note [facility] Basic Metabolic Profile (BMP )on 06-28-2025 BUN/CRE 23.4 RATIO High - [facility] Comment on above: Order Comment: 212.1 Performed By: #### L 500.2500 #### [facility] [address] [place], [address] Calcium [Mass/Vol] 8.4 mg/dL Normal 7.6-11.0 [facility] Comment on above: Order Comment: 212.1 Performed By: #### L 500.2500 #### [facility] [address] [place], [address] Chloride [Moles/Vol] 100 mmol/L Normal 98-108 [facility] Comment on above: Order Comment: 212.1 Performed By: #### L 500.2500 #### [facility] [address] [place], [address] CO2 [Moles/Vol] 27.4 mmol/L Normal 21.0-32.0 [facility] Comment on above: Order Comment: 212.1 Performed By: #### L 500.2500 #### [facility] [address] [place], [address] Creatinine [Mass/Vol] 1.72 mg/dL High 0.70-1.20 [facility] Comment on above: Order Comment: 212.1 Performed By: #### L 500.2500 #### [facility] [address] [place], [address] GAP 10 Normal 5-15 [facility] Comment on above: Order Comment: 212.1 Performed By: #### L 500.2500 #### [facility] [address] [place], [address] GFR/1.73 sq M.predicted among non-blacks MDRD (S/P/Bld) [Vol rate/Area] 38 mL/min/{1.73_m2} Low >60 [facility] Comment on above: Order Comment: 212.1 Result Comment: mL/m in/1.73m2 CKD-EPI Creatinine Equation (2020) Performed By: #### L 500.2500 #### [facility] [address] [place], [address] Glucose [Mass/Vol] 88 mg/dL Normal 70-99 [facility] Comment on above: Order Comment: 212.1 Performed By: #### L 500.2500 #### [facility] [address] [place], [address] Potassium [Moles/Vol] 3.9 mmol/L Normal 3.3-5.1 [facility] Comment on above: Order Comment: 212.1 Performed By: #### L 500.2500 #### [facility] [address] [place], [address] Sodium [Moles/Vol] 137 mmol/L Normal 133-145 [facility] Comment on above: Order Comment: 212.1 Performed By: #### L 500.2500 #### [facility] [address] [place], [address] Urea nitrogen [Mass/Vol] 40 mg/dL High 4-19 [facility] Comment on above: Order Comment: 212.1 Performed By: #### L 500.2500 #### [facility] [address] [place], [address] 36on 06-24-2025 36 Normal [facility] 36 [facility] 36 06/24/25 BMP, blood pressure, pulse summary, and medication notes faxed from [facility]. Records scanned to Media. Normal [facility] Basic Metabolic Profile (BMP )on 06-24-2025 BUN/CRE 25.8 RATIO High 10-20 [facility] Comment on above: Order Comment: 212.1 Performed By: #### L 500.2500 #### [facility] [address] [place], [address] Calcium [Mass/Vol] 8.4 mg/dL Normal 7.6-11.0 [facility] Comment on above: Order Comment: 212.1 Performed By: #### L 500.2500 #### [facility] [address] [place], [address] Chloride [Moles/Vol] 97 mmol/L Low 98-108 [facility] Comment on above: Order Comment: 212.1 Performed By: #### L 500.2500 #### [facility] [address] [place], [address] CO2 [Moles/Vol] 26.9 mmol/L Normal 21.0-32.0 [facility] Comment on above: Order Comment: 212.1 Performed By: #### L 500.2500 #### [facility] [address] [place], [address] Creatinine [Mass/Vol] 1.80 mg/dL High 0.70-1.20 [facility] Comment on above: Order Comment: 212.1 Performed By: #### L 500.2500 #### [facility] [address] [place], [address] GAP 12 Normal 5-15 [facility] Comment on above: Order Comment: 212.1 Performed By: #### L 500.2500 #### [facility] [address] [place], [address] GFR/1.73 sq M.predicted among non-blacks MDRD (S/P/Bld) [Vol rate/Area] 36 mL/min/{1.73_m2} Low >60 [facility] Comment on above: Order Comment: 212.1 Result Comment: mL/m in/1.73m2 CKD-EPI Creatinine Equation (2020) Performed By: #### L 500.2500 #### [facility] [address] [place], [address] Glucose [Mass/Vol] 87 mg/dL Normal 70-99 [facility] Comment on above: Order Comment: 212.1 Performed By: #### L 500.2500 #### [facility] [address] [place], [address] Potassium [Moles/Vol] 3.8 mmol/L Normal 3.3-5.1 [facility] Comment on above: Order Comment: 212.1 Performed By: #### L 500.2500 #### [facility] [address] [place], [address] Sodium [Moles/Vol] 137 mmol/L Normal 133-145 [facility] Comment on above: Order Comment: 212.1 Performed By: #### L 500.2500 #### [facility] [address] [place], [address] Urea nitrogen [Mass/Vol] 47 mg/dL High 4-19 [facility] Comment on above: Order Comment: 212.1 Performed By: #### L 500.2500 #### [facility] [address] [place], [address] Progress Noteon 06-24-2025 Progress Note Attempted to meet with pt. He no longer resides here. Facility uncertain where he has moved to. Message left on primary contacts number Bereket to return call to the palliative group at [phone] [facility] BASIC METABOLIC PANELon 06-09 Anion gap [Moles/Vol] 15 mmol/L High 3-13 [facility] Comment on above: Performed By: #### L AB15 ####Catalogue Maker: UNA ARCE ([id number])[facility] (SBHLAB)[address] Calcium [Mass/Vol] 8.4 mg/dL Low 8.8-10.0 [facility] Comment on above: Performed By: #### L AB15 ####Catalogue Maker: UNA ARCE ([id number])LYNETTE BASHIRMarisol (SBHLAB)[address] Chloride [Moles/Vol] 97 mmol/L Low 98-107 [facility] Comment on above: Performed By: #### L AB15 ####Catalogue Maker: UNA ARCE ([id number])[facility]ENTER[facility] BASHIRMarisol (SBHLAB)[address] CO2 [Moles/Vol] 25 mmol/L Normal 23-31 [facility] Comment on above: Performed By: #### L AB15 ####Catalogue Maker: UNA ARCE ([id number])[facility]ENTER[facility] BASHIRMarisol (SBHLAB)[address] Creatinine [Mass/Vol] 1.97 mg/dL High 0.72-1.25 [facility] Comment on above: Performed By: #### L AB15 ####Catalogue Maker: UNA ARCE ([id number])[facility]ENTER[facility] BASHIRMarisol (SBHLAB)[address] GLOMERULAR FILTRATION RATE ML/MIN/1.73 SQ M.PREDICTED 31.9 mL/min/1.73m*2 Low >60.0 [facility] Comment on above: Result Comment: Calc ulation based on the Chronic Kidney Disease Epidemiology Collaboration (CKD-EPI) equation refit without adjustment for race Performed By: #### L AB15 ####Catalogue Maker: UNA ARCE ([id number])[facility] BASHIRMarisol (SBHLAB)[address] Glucose [Mass/Vol] 108 mg/dL Normal 82-115 [facility] Comment on above: Performed By: #### L AB15 ####Catalogue Maker: UNA ARCE ([id number])[facility] (SBHLAB)[address] Potassium [Moles/Vol] 4.1 mmol/L Normal 3.5-5.1 [facility] Comment on above: Result Comment: [facility] potassium values may be up to 0.5 mmol/L lower than serum values. Performed By: #### L AB15 ####Catalogue Maker: UNA ARCE ([id number])[facility] (SBHLAB)[address] Sodium [Moles/Vol] 137 mmol/L Normal 136-145 [facility] Comment on above: Performed By: #### L AB15 ####Catalogue Maker: NUA ARCE ([id number])[facility] (SBHLAB)[address] Urea nitrogen [Mass/Vol] 51 mg/dL High 06-01 [facility] Comment on above: Performed By: #### L AB15 ####Catalogue Maker: UNA ARCE ([id number])[facility] (SBHLAB)[address] BLOOD TYPE AND SCREEN GELon 06-21-2025 ABO GROUPING A Normal [facility] Comment on above: Performed By: #### L [id number] ####Catalogue Maker: UNA ACRE ([id number])[facility] ([facility])[address] RH TYPE IN BLOOD Negative Normal [facility] Comment on above: Performed By: #### L [id number] ####Catalogue Maker: UNA ARCE ([id number])[facility] ([facility])[address] Basic Metabolic Profile (BMP )on 06-21-2025 BUN/CRE 25.4 RATIO High 06-28 [facility] Comment on above: Order Comment: 212.1 Performed By: #### L 500.2500, L100.0500 #### [facility] [address] [place], [address] Calcium [Mass/Vol] 8.4 mg/dL Normal 7.6-11.0 [facility] Comment on above: Order Comment: 212.1 Performed By: #### L 500.2500, L100.0500 #### [facility] [address] [place], [address] Chloride [Moles/Vol] 97 mmol/L Low 98-108 [facility] Comment on above: Order Comment: 212.1 Performed By: #### L 500.2500, L100.0500 #### [facility] [address] [place], [address] CO2 [Moles/Vol] 29.6 mmol/L Normal 21.0-32.0 [facility] Comment on above: Order Comment: 212.1 Performed By: #### L 500.2500, L100.0500 #### [facility] [address] [place], [address] Creatinine [Mass/Vol] 1.86 mg/dL High 0.70-1.20 [facility] Comment on above: Order Comment: 212.1 Performed By: #### L 500.2500, L100.0500 #### [facility] [address] [place], [address] GAP 10 Normal 5-15 [facility] Comment on above: Order Comment: 212.1 Performed By: #### L 500.2500, L100.0500 #### [facility] [address] [place], [address] GFR/1.73 sq M.predicted among non-blacks MDRD (S/P/Bld) [Vol rate/Area] 34 mL/min/{1.73_m2} Low >60 [facility] Comment on above: Order Comment: 212.1 Result Comment: mL/m in/1.73m2 CKD-EPI Creatinine Equation (2020) Performed By: #### L 500.2500, L100.0500 #### [facility] [address] [place], [address] Glucose [Mass/Vol] 93 mg/dL Normal 70-99 [facility] Comment on above: Order Comment: 212.1 Performed By: #### L 500.2500, L100.0500 #### [facility] [address] [place], [address] Potassium [Moles/Vol] 3.8 mmol/L Normal 3.3-5.1 [facility] Comment on above: Order Comment: 212.1 Performed By: #### L 500.2500, L100.0500 #### [facility] [address] [place], [address] Sodium [Moles/Vol] 136 mmol/L Normal 133-145 [facility] Comment on above: Order Comment: 212.1 Performed By: #### L 500.2500, L100.0500 #### [facility] [address] [place], [address] Urea nitrogen [Mass/Vol] 47 mg/dL High 4-19 [facility] Comment on above: Order Comment: 212.1 Performed By: #### L 500.2500, L100.0500 #### [facility] [address] [place], [address] Basic metabolic 1998 panelon 06-21-2025 Anion gap [Moles/Vol] 15 mmol/L High 3 - 13 mmol/L [facility] Calcium [Mass/Vol] 8.4 mg/dL Low 8.8 - 10. 0 mg/dL [facility] Chloride [Moles/Vol] 97 mmol/L Low 98 - 10 7 mmol/L [facility] CO2 [Moles/Vol] 25 mmol/L 23 - 31 mmol/L [facility] Creatinine [Mass/Vol] 1.97 mg/dL High 0.72 - 1.25 mg/dL [facility] GFR/1.73 sq M.predicted (S/P/Bld) [Vol rate/Area] 31.9 mL/min Low - PINF [facility] Comment on above: Calculation based on the Chronic Kidney Disease Epidemiology Collaboration (CKD-EPI) equation refit without adjustment for race Glucose [Mass/Vol] 108 mg/dL 82 - 115 mg/dL [facility] Interpretation and review of laboratory results Abnormal [facility] Potassium [Moles/Vol] 4.1 mmol/L 3.5 - 5.1 mmol/L [facility] Comment on above: Plasma potassium traci ues may be up to 0.5 mmol/L lower than serum values. Sodium [Moles/Vol] 137 mmol/L 136 - 145 mmol/L [facility] Urea nitrogen [Mass/Vol] 51 mg/dL High 9 - 23 mg/d L [facility] Blood type and Crossmatch keagan valente (Bld)on 06-21-2025 ABO group Nom (Bld) A [facility] Blood group antibody screen GEL Ql Negative [facility] D Ag Ql (RBC) Negative [facility] CBC W Auto Differential pane l (Bld)Ordered By: Sallie Powell on 06-21-2025 Erythrocyte distribution width (RBC) [Ratio] 16.7 % High 11.5 - 15.0 % [facility] Hematocrit (Bld) [Volume fraction] 23.3 % Low 40.0 - 52.0 % [facility] Hemoglobin (Bld) [Mass/Vol] 7.4 g/dL Low 13.0 - 18.0 g/dL [facility] Interpretation and review of laboratory results Abnormal [facility] MCH (RBC) [Entitic mass] 29 pg 26. 0 - 34.0 pg [facility] MCHC (RBC) [Mass/Vol] 31.8 % 30.5 - 36.0 % [facility] MCV (RBC) [Entitic vol] 91.4 fL 77.0 - 99.0 fL [facility] Platelet mean volume (Bld) [Entitic vol] 8.5 fL Low 9.0 - 12.7 fL [facility] Platelets (Bld) [#/Vol] 513 10*3/uL High 140 - 440 10*3/uL [facility] RBC (Bld) [#/Vol] 2.55 10*6/uL Low 4.40 - 5.9 0 10*6/uL [facility] WBC (Bld) [#/Vol] 16.8 10*3/uL High 3.6 - 10.7 10*3/uL [facility] CBC WITH AUTO DIFFERENTIALon 06-21-2025 Erythrocyte distribution width (RBC) [Ratio] 16.7 % High 11.5-15.0 [facility] Comment on above: Performed By: #### L [id number], [id number] ####Catalogue Maker: UNA ARCE ([id number])[facility] (SBHLAB)[address] Hematocrit (Bld) [Volume fraction] 23.3 % Low 40.0-52.0 [facility] Comment on above: Performed By: #### L [id number], [id number] ####Catalogue Maker: UNA ARCE ([id number])[facility] (SBHLAB)[address] [place] [address] Hemoglobin (Bld) [Mass/Vol] 7.4 g/dL Low 13.0-18.0 [facility] Comment on above: Performed By: #### L [id number], [id number] ####Catalogue Maker: UNA ARCE ([id number])[facility] (SBHLAB)[address] [place] [address] MCH (RBC) [Entitic mass] 29.0 pg Normal 26.0-34.0 [facility] Comment on above: Performed By: #### L [id number], [id number] ####Catalogue Maker: UNA ARCE ([id number])[facility] (SBHLAB)[address] [place] [address] MCHC 31.8 % Normal 30.5-36.0 [facility] Comment on above: Performed By: #### L [id number], [id number] ####Catalogue Maker: UNA ARCE ([id number])[facility] (SBHLAB)[address] [place] [address] MCV (RBC) [Entitic vol] 91.4 fL Normal 77.0-99.0 [facility] Comment on above: Performed By: #### L [id number], [id number] ####Catalogue Maker: UNA ARCE ([id number])LYNETTE BASHIRN (SBHLAB)[address] Platelet mean volume (Bld) [Entitic vol] 8.5 fL Low 9.0-12.7 [facility] Comment on above: Performed By: #### L [id number], [id number] ####Catalogue Maker: UNA ARCE ([id number])LYNETTE BARBERTON (SBHLAB)[address] Platelets (Bld) [#/Vol] 513 10*3/uL High 140-440 [facility] Comment on above: Performed By: #### L [id number], [id number] ####Catalogue Maker: UNA ARCE ([id number])LYNETTE BASHIRN (SBHLAB)[address] RBC (Bld) [#/Vol] 2.55 10*6/uL Low 4.40-5.90 [facility] Comment on above: Performed By: #### L [id number], [id number] ####Catalogue Maker: UNA ARCE ([id number])LYNETTE BASHIRN (SBHLAB)[address] [place] [address] WBC (Bld) [#/Vol] 16.8 10*3/uL High 3.6-10.7 [facility] Comment on above: Performed By: #### L [id number], [id number] ####Catalogue Maker: UNA ARCE ([id number])[facility] B[facility] (SBHLAB)[address] CBC-Complete Blood Cnt No Di ffon 06-21-2025 Erythrocyte distribution width (RBC) [Ratio] 16.8 % High 11.6-14.6 [facility] Comment on above: Order Comment: 212.1 Performed By: #### L 500.2500, L100.0500 #### [facility] [address] [place], [address] Hematocrit (Bld) [Volume fraction] 21.5 % Low 40-54 [facility] Comment on above: Order Comment: 212.1 Performed By: #### L 500.2500, L100.0500 #### [facility] [address] [place], [address] Hemoglobin (Bld) [Mass/Vol] 6.9 g/dL Low 13.0-16.5 [facility] Comment on above: Order Comment: 212.1 Performed By: #### L 500.2500, L100.0500 #### [facility] [address] [place], [address] MCH (RBC) [Entitic mass] 28.8 pg Normal 27.0-32.0 [facility] Comment on above: Order Comment: 212.1 Performed By: #### L 500.2500, L100.0500 #### [facility] [address] [place], [address] MCHC (RBC) [Mass/Vol] 32.1 g/dL Normal 32-36 [facility] Comment on above: Order Comment: 212.1 Performed By: #### L 500.2500, L100.0500 #### [facility] [address] [place], [address] MCV (RBC) [Entitic vol] 89.6 fL Normal 80-[address] [facility] Comment on above: Order Comment: 212.1 Performed By: #### L 500.2500, L100.0500 #### [facility] [address] [place], [address] Platelet mean volume (Bld) [Entitic vol] 8.7 fL Normal 6.2-12.0 [facility] Comment on above: Order Comment: 212.1 Performed By: #### L 500.2500, L100.0500 #### [facility] [address] [place], [address] Platelets (Bld) [#/Vol] 457 10*3/uL High 150-450 [facility] Comment on above: Order Comment: 212.1 Performed By: #### L 500.2500, L100.0500 #### [facility] [address] [place], [address] RBC (Bld) [#/Vol] 2.40 10*6/uL Low 4.6-6.2 [facility] Comment on above: Order Comment: 212.1 Performed By: #### L 500.2500, L100.0500 #### [facility] [address] [place], [address] RDW SD 55.8 fl High 35.1-43.9 [facility] Comment on above: Order Comment: 212.1 Performed By: #### L 500.2500, L100.0500 #### [facility] [address] [place], [address] WBC (Bld) [#/Vol] 14.3 10*3/uL High 4.4-11.0 [facility] Comment on above: Order Comment: 212.1 Performed By: #### L 500.2500, L100.0500 #### [facility] [address] [place], [address] ECG 12-LEADon 06-21-2025 ECG 12-LEAD IMPRESSION: Sinus rhythm Atrial premature complexes Left anterior fascicular block Similar to prior on 04/13/25 Electronically Signed On 06-21-2025 23:12:12 EDT by Sagar Gilliam [facility] ED Nursing Noteon 06-21-2025 ED Nursing Note This RN at bedside for first 15 minutes of blood transfusion. Pt tolerating transfusion. VS updated in system. [facility] ED Nursing Note Patient arrives via EMS from [facility] following bloodwork that showed low hemoglobin. No overt signs of bleeding on arrival. Patient A&O4. Patient does endorse previous blood transfusions. Normal [facility] ED Provider Noteon ED Provider Note Normal [facility] Laboratory - Hematology and Cell countson 06-21-2025 Eosinophils (Bld) [#/Vol] 0.3 10*3/uL 0.0 - 0.5 10*3/uL [facility] Eosinophils/100 WBC (Bld) 2 % 0 - 6 % [facility] Giant platelets LM Ql (Bld) Rare Abnormal (none) [facility] Hypochromia Ql (Bld) Slight Abnormal (none) [facility] Lymphocytes (Bld) [#/Vol] 4 10*3/uL 1.0 - 4.3 10*3/uL [facility] Lymphocytes/100 WBC (Bld) 24 % 15 - 45 % [facility] Monocytes (Bld) [#/Vol] 1.2 10*3/uL High 0.0 - 0.9 10*3/uL [facility] Monocytes/100 WBC (Bld) 7 % 5 - 13 % [facility] Neutrophils (Bld) [#/Vol] 11.3 10*3/uL High 1.8 - 7.5 10*3/uL [facility] Ovalocytes LM Ql (Bld) Rare Abnormal (none) [facility] RBC morphology finding Nom (Bld) abnormal [facility] Segmented neutrophils/100 WBC (Bld) 67 % 38 - 82 % [facility] MANUAL DIFFERENTIAL (CELLAVI BANDAR)on 06-21-2025 BAND NEUTROPHILS TOTAL PER COUNTED LEUKOCYTES BY MANUAL COUNT Normal [facility] Comment on above: Performed By: #### L [id number], [id number] ####Catalogue Maker: UNA ARCE ([id number])[facility] (SBHLAB)[address] BASOPHILS TOTAL PER COUNTED LEUKOCYTES BY MANUAL COUNT Normal [facility] Comment on above: Performed By: #### L [id number], [id number] ####Catalogue Maker: UNA ARCE ([id number])[facility] [place] (SBHLAB)[address] [place] [address] [place] BLASTS TOTAL PER COUNTED LEUKOCYTES BY MANUAL COUNT Normal [facility] Comment on above: Performed By: #### L [id number], [id number] ####Catalogue Maker: UNA ARCE ([id number])[facility] [place] (SBHLAB)[address] [place] [address] [place] EOSINOPHILS (10*3/UL) IN BLOOD-CELLAVISION 0.3 10*3/uL Normal 0.0-0.5 [facility] Comment on above: Performed By: #### L [id number], [id number] ####Catalogue Maker: UNA ARCE ([id number])[facility] [place] (SBHLAB)[address] [place] [address] [place] EOSINOPHILS TOTAL PER COUNTED LEUKOCYTES BY MANUAL COUNT 2 High 0-1 [facility] Comment on above: Performed By: #### L [id number], [id number] ####Catalogue Maker: UNA ARCE ([id number])[facility] [place] (SBHLAB)[address] [place] [address] [place] EOSINOPHILS/100 LEUKOCYTES IN BLOOD-CELLAVISION 2 % Normal 0-6 [facility] Comment on above: Performed By: #### L [id number], [id number] ####Catalogue Maker: UNA ARCE ([id number])[facility] [place] (SBHLAB)[address] [place] [address] [place] HYPOCHROMIA (PRESENCE) IN BLOOD BY LIGHT MICROSCOPY Slight Abnormal (none) [facility] Comment on above: Performed By: #### L [id number], [id number] ####Catalogue Maker: UNA ARCE ([id number])[facility] [place] (SBHLAB)[address] [place] [address] [place] LYMPHOCYTES (10*3/UL) IN BLOOD-CELLAVISION 4.0 10*3/uL Normal 1.0-4.3 [facility] Comment on above: Performed By: #### L [id number], [id number] ####Catalogue Maker: UNA ARCE ([id number])[facility] [place] (SBHLAB)[address] [place] [address] [place] LYMPHOCYTES TOTAL PER COUNTED LEUKOCYTES BY MANUAL COUNT 24 Normal [facility] Comment on above: Performed By: #### L [id number], [id number] ####Catalogue Maker: UNA ARCE ([id number])[facility] [place] (SBHLAB)[address] [place] [address] [place] LYMPHOCYTES/100 LEUKOCYTES IN BLOOD-CELLAVISION 24 % Normal 15-45 [facility] Comment on above: Performed By: #### L [id number], [id number] ####Catalogue Maker: UNA ARCE ([id number])[facility] [place] (SBHLAB)[address] [place] [address] [place] METAMYELOCYTES TOTAL PER COUNTED LEUKOCYTES BY MANUAL COUNT Normal [facility] Comment on above: Performed By: #### L [id number], [id number] ####Catalogue Maker: UNA ARCE ([id number])[facility] [place] (SBHLAB)[address] [place] [address] [place] MONOCYTES (10*3/UL) IN BLOOD-CELLAVISION 1.2 10*3/uL High 0.0-0.9 [facility] Comment on above: Performed By: #### L [id number], [id number] ####Catalogue Maker: UNA ARCE ([id number])[facility] [place] (SBHLAB)[address] [place] [address] [place] MONOCYTES TOTAL PER COUNTED LEUKOCYTES BY MANUAL COUNT 7 Normal [facility] Comment on above: Performed By: #### L [id number], [id number] ####Catalogue Maker: UNA ARCE ([id number])[facility] [place] (SBHLAB)[address] [place] [address] [place] MONOCYTES/100 LEUKOCYTES IN BLOOD-LUCIANA 7 % Normal 5-13 [facility] Comment on above: Performed By: #### L [id number], [id number] ####Catalogue Maker: UNA ARCE ([id number])[facility] [place] (SBHLAB)[address] [place] [address] [place] MYELOCYTES COUNTED BY MANUAL COUNT Normal [facility] Comment on above: Performed By: #### L [id number], [id number] ####Catalogue Maker: UNA ARCE ([id number])[facility] [place] (SBHLAB)[address] [place] [address] [place] NEUTROPHILS TOTAL PER COUNTED LEUKOCYTES BY MANUAL COUNT 67 Normal [facility] Comment on above: Performed By: #### L [id number], [id number] ####Catalogue Maker: UNA ARCE ([id number])[facility] (SBHLAB)[address] [place] [address] [place] OVALOCYTES PRESENCE IN BLOOD BY LIGHT MICROSCOPY Rare Abnormal (none) [facility] Comment on above: Performed By: #### L [id number], [id number] ####Catalogue Maker: UNA ARCE ([id number])[facility] (SBHLAB)[address] [place] [address] [place] PLATELETS GIANT PRESENCE IN BLOOD BY LIGHT MICROSCOPY Rare Abnormal (none) [facility] Comment on above: Performed By: #### L [id number], [id number] ####Catalogue Maker: UNA ARCE ([id number])[facility] [place] (SBHLAB)[address] [place] [address] [place] PROMYELOCYTES TOTAL PER COUNTED LEUKOCYTES BY MANUAL COUNT Normal [facility] Comment on above: Performed By: #### L [id number], [id number] ####Catalogue Maker: UNA ARCE ([id number])[facility] [place] (SBHLAB)[address] [place] [address] [place] RBC MORPHOLOGY IN BLOOD abnormal Normal [facility] Comment on above: Performed By: #### L [id number], [id number] ####Catalogue Maker: UNA ARCE ([id number])[facility] [place] (SBHLAB)[address] [place] [address] [place] SEGMENTED NEUTROPHILS (10*3/UL) IN BLOOD-CELLAVISION 11.3 10*3/uL High 1.8-7.5 [facility] Comment on above: Performed By: #### L [id number], [id number] ####Catalogue Maker: UNA BERMUDEZPEDRO ([id number])[facility] [place] (SBHLAB)[address] SEGMENTED NEUTROPHILS/100 LEUKOCYTES-CE 67 % Normal 38-82 [facility] Comment on above: Performed By: #### L [id number], [id number] ####Catalogue Maker: UNA BERMUDEZPEDRO ([id number])[facility] [place] (SBHLAB)[address] UNCLASSIFIED CELLS TOTAL PER COUNTED LEUKOCYTES BY MANUAL COUNT [facility] Comment on above: Performed By: #### L [id number], [id number] ####Catalogue Maker: UNA BERMUDEZPEDRO ([id number])[facility] [place] (SBHLAB)[address] VARIANT LYMPHOCYTES TOTAL PER COUNTED LEUKOCYTES BY MANUAL COUNT [facility] Comment on above: Performed By: #### L [id number], [id number] ####Catalogue Maker: UNA BERMUDEZPEDRO ([id number])[facility] [place] (SBHLAB)[address] No Panel Informationon 06-21 P [place] 17 degrees [facility] CT Interval 189 ms [facility] QRS [place] -50 degrees [facility] QRSD Interval 116 ms [facility] QT Interval 434 ms [facility] QTC Interval 436 ms [facility] T Wave [place] 37 degrees [facility] Sinus rhythm Atrial premature complexes Left anterior fascicular block Similar to prior on 04/13/25 Electronically Signed On 06-21-2025 23:12:12 EDT by Sagar Posey DO - 06/21/2025 IMPRESSION: Sinus rhythm Atrial premature complexes Left anterior fascicular block Similar to prior on 04/13/25 Electronically Signed On 06-21-2025 23:12:12 EDT by Sagar Gilliam [facility] Blood Expiration Date [id number] S [facility] Crossmatch interpretation COMP [facility] Dispense Status Transfused [facility] lt Product Blood Type 600 [facility] PRODUCT CODE [id number] [facility] Unit ABO A [facility] Unit Number [id number] [facility] RH Negative [facility] Unit Volume 300 mL [facility] Atypical Lymphocytes Manual [facility] Bands Manual [facility] Basophils Manual [facility] alth Blasts Manual [facility] Eosinophils Manual 2 High 0 - 1 [facility] Interpretation and review of laboratory results Abnormal [facility] Lymphocytes Manual 24 [facility] Metamyelocytes Manual [facility] Monocytes Manual 7 [facility] alth Myelocytes Manual [facility] ealt Neutrophils Manual 67 [facility] Promyelocytes Manual [facility] Unclassified Cells, Manual [facility] Vital signson 06-21-2025 Heart rate 63 /min bpm [facility] 36on 06-18-2025 36 Noted; thank you. Normal [facility] 36on 06-17-2025 36 Normal [facility] 36 Normal [facility] BASIC METABOLIC PANELon Anion gap [Moles/Vol] 13 mmol/L Normal 3-13 [facility] Comment on above: Performed By: #### L [id number] ####Catalogue Maker: ANAHY AVILA ([id number])[facility] [place] (SWRLAB)[address] [place] [address] [place] Calcium [Mass/Vol] 9.2 mg/dL Normal 8.8-10.0 [facility] Comment on above: Performed By: #### L AB15 ####Catalogue Maker: ANAHY AVILA ([id number])[facility] [place] (SWRLAB)[address] [place] [address] [place] Chloride [Moles/Vol] 98 mmol/L Normal 98-107 [facility] Comment on above: Performed By: #### L AB15 ####Catalogue Maker: ANAHY AVILA ([id number])[facility] [place] (SWRLAB)[address] [place] [address] [place] CO2 [Moles/Vol] 29 mmol/L Normal 23-31 [facility] Comment on above: Performed By: #### L AB15 ####Catalogue Maker: ANAHY AVILA ([id number])[facility] [place] (SWRLAB)[address] [place] [address] [place] Creatinine [Mass/Vol] 2.05 mg/dL High 0.72-1.25 [facility] Comment on above: Performed By: #### L AB15 ####Catalogue Maker: ANAHY AVILA ([id number])[facility] [place] (SWRLAB)[address] [place] [address] [place] GLOMERULAR FILTRATION RATE ML/MIN/1.73 SQ M.PREDICTED 30.4 mL/min/1.73m*2 Low >60.0 [facility] Comment on above: Result Comment: Calc ulation based on the Chronic Kidney Disease Epidemiology Collaboration (CKD-EPI) equation refit without adjustment for race Performed By: #### L AB15 ####Catalogue Maker: ANAHY AVILA ([id number])[facility] [place] (SWRLAB)[address] [place] [address] [place] Glucose [Mass/Vol] 109 mg/dL Normal 82-115 [facility] Comment on above: Performed By: #### L AB15 ####Catalogue Maker: ANAHY AVILA ([id number])[facility] [place] (SWRLAB)[address] [place] [address] [place] Potassium [Moles/Vol] 4.3 mmol/L Normal 3.5-5.1 [facility] Comment on above: Result Comment: [facility] potassium values may be up to 0.5 mmol/L lower than serum values. Performed By: #### L AB15 ####Catalogue Maker: ANAHY AVILA ([id number])[facility] [place] (SWRLAB)[address] [place] [address] [place] Sodium [Moles/Vol] 140 mmol/L Normal 136-145 [facility] Comment on above: Performed By: #### L AB15 ####Catalogue Maker: ANAHY AVILA ([id number])[facility] [place] (SWRLAB)[address] Urea nitrogen [Mass/Vol] 54 mg/dL High 9-23 [facility] Comment on above: Performed By: #### L AB15 ####Catalogue Maker: ANAHY AVILA ([id number])[facility] [place] (SWRLAB)[address] Basic metabolic 1998 panelon 06-17-2025 Anion gap [Moles/Vol] 13 mmol/L 3 - 13 mmol/L [facility] Calcium [Mass/Vol] 9.2 mg/dL 8.8 - 10. 0 mg/dL [facility] Chloride [Moles/Vol] 98 mmol/L 98 - 10 7 mmol/L [facility] CO2 [Moles/Vol] 29 mmol/L 23 - 31 mmol/L [facility] Creatinine [Mass/Vol] 2.05 mg/dL High 0.72 - 1.25 mg/dL [facility] GFR/1.73 sq M.predicted (S/P/Bld) [Vol rate/Area] 30.4 mL/min Low - PINF [facility] Comment on above: Calculation based on the Chronic Kidney Disease Epidemiology Collaboration (CKD-EPI) equation refit without adjustment for race Glucose [Mass/Vol] 109 mg/dL 82 - 115 mg/dL [facility] Interpretation and review of laboratory results Abnormal [facility] Potassium [Moles/Vol] 4.3 mmol/L 3.5 - 5.1 mmol/L [facility] Comment on above: Plasma potassium traci ues may be up to 0.5 mmol/L lower than serum values. Sodium [Moles/Vol] 140 mmol/L 136 - 145 mmol/L [facility] Urea nitrogen [Mass/Vol] 54 mg/dL High 9 - 23 mg/d L [facility] CBC W Auto Differential pane l (Bld)Ordered By: Jessica Maldonado on 06-17-2025 Basophils (Bld) [#/Vol] 0.1 10*3/uL 0.0 - 0.2 10*3/uL [facility] Basophils/100 WBC (Bld) 0.7 % 0.0 - 2.0 % [facility] Eosinophils (Bld) [#/Vol] 0.4 10*3/uL 0.0 - 0.5 10*3/uL [facility] Eosinophils/100 WBC (Bld) 2.2 % 0.0 - 6.0 % [facility] Erythrocyte distribution width (RBC) [Ratio] 17.2 % High 11.5 - 15.0 % [facility] Hematocrit (Bld) [Volume fraction] 25.7 % Low 40.0 - 52.0 % [facility] Hemoglobin (Bld) [Mass/Vol] 8.2 g/dL Low 13.0 - 18.0 g/dL [facility] Immature granulocytes (Bld) [#/Vol] 0.2 10*3/uL High NINF - 0.1 10*3/uL [facility] Immature granulocytes/100 WBC (Bld) 1 % 0.0 - 2.0 % [facility] Interpretation and review of laboratory results Abnormal [facility] Lymphocytes (Bld) [#/Vol] 2.9 10*3/uL 1.0 - 4.3 10*3/uL [facility] Lymphocytes/100 WBC (Bld) 17.2 % 15.0 - 45.0 % [facility] MCH (RBC) [Entitic mass] 29.1 pg 26. 0 - 34.0 pg [facility] MCHC (RBC) [Mass/Vol] 31.9 % 30.5 - 36.0 % [facility] MCV (RBC) [Entitic vol] 91.1 fL 77.0 - 99.0 fL [facility] Monocytes (Bld) [#/Vol] 1.5 10*3/uL High 0.0 - 0.9 10*3/uL [facility] Monocytes/100 WBC (Bld) 9.1 % 5.0 - 13.0 % [facility] Neutrophils (Bld) [#/Vol] 11.5 10*3/uL High 1.8 - 7.5 10*3/uL [facility] Neutrophils/100 WBC (Bld) 69.8 % 38.0 - 82.0 % [facility] Nucleated RBC/100 WBC (Bld) [Ratio] 0 % [facility] Platelet mean volume (Bld) [Entitic vol] 8.7 fL Low 9.0 - 12.7 fL [facility] Comment on above: MPV is a calculated measurement using platelet volume ratio Platelets (Bld) [#/Vol] 517 10*3/uL High 140 - 440 10*3/uL [facility] RBC (Bld) [#/Vol] 2.82 10*6/uL Low 4.40 - 5.9 0 10*6/uL [facility] WBC (Bld) [#/Vol] 16.5 10*3/uL High 3.6 - 10.7 10*3/uL [facility] Moderate Anisocytosi s Slight Hypochromia [facility] CBC WITH AUTO DIFFERENTIALon 06-17-2025 Basophils (Bld) [#/Vol] 0.1 10*3/uL Normal 0.0-0.2 [facility] Comment on above: Performed By: #### L [id number] ####Catalogue Maker: ANAHY AVILA ([id number])[facility] [place] (SWRLAB)[address] [place] [address] [place] Basophils/100 WBC (Bld) 0.7 % Normal 0.0-2.0 S [facility] Comment on above: Performed By: #### L [id number] ####Catalogue Maker: ANAHY AVILA ([id number])[facility] [place] (SWRLAB)[address] [place] [address] [place] Eosinophils (Bld) [#/Vol] 0.4 10*3/uL Normal 0.0-0.5 [facility] Comment on above: Performed By: #### L [id number] ####Catalogue Maker: ANAHY AVILA ([id number])[facility] [place] (SWRLAB)[address] [place] [address] [place] Eosinophils/100 WBC (Bld) 2.2 % Normal 0.0-6.0 [facility] Comment on above: Performed By: #### L [id number] ####Catalogue Maker: ANAHY AVILA ([id number])[facility] [place] (SWRLAB)[address] [place] [address] [place] Erythrocyte distribution width (RBC) [Ratio] 17.2 % High 11.5-15.0 [facility] Comment on above: Performed By: #### L [id number] ####Catalogue Maker: ANAHY AVILA ([id number])[facility]ENTER[facility] [place] (SWRLAB)[address] [place] [address] Hematocrit (Bld) [Volume fraction] 25.7 % Low 40.0-52.0 [facility] Comment on above: Performed By: #### L [id number] ####Catalogue Maker: ANAHY AVILA ([id number])[facility] [place] (SWRLAB)[address] [place] [address] Hemoglobin (Bld) [Mass/Vol] 8.2 g/dL Low 13.0-18.0 [facility] Comment on above: Performed By: #### L [id number] ####Catalogue Maker: ANAHY AVILA ([id number])[facility] [place] (SWRLAB)[address] [place] [address] IMMATURE GRANS % 1.0 % Normal 0.0-2.0 [facility] Comment on above: Performed By: #### L [id number] ####Catalogue Maker: ANAHY AVILA ([id number])[facility] [place] (SWRLAB)[address] [place] [address] IMMATURE GRANS ABSOLUTE 0.2 10*3/uL High <0.1 [facility] Comment on above: Result Comment: ORDE R COMMENTS:Moderate AnisocytosisSlight Hypochromia Performed By: #### L [id number] ####Catalogue Maker: ANAHY AVILA ([id number])[facility] [place] (SWRLAB)[address] [place] [address] Lymphocytes (Bld) [#/Vol] 2.9 10*3/uL Normal 1.0-4.3 [facility] Comment on above: Performed By: #### L [id number] ####Catalogue Maker: ANAHY AVILA ([id number])[facility]TE [place] (SWRLAB)[address] [place] [address] [place] Lymphocytes/100 WBC (Bld) 17.2 % Normal 15.0-45.0 [facility] Comment on above: Performed By: #### L [id number] ####Catalogue Maker: ANAHY AVILA ([id number])LYNETTE [place] (SWRLAB)[address] [place] [address] MCH (RBC) [Entitic mass] 29.1 pg Normal 26.0-34.0 [facility] Comment on above: Performed By: #### L [id number] ####Catalogue Maker: ANAHY AVILA ([id number])[facility] [place] (SWRLAB)[address] [place] [address] MCHC 31.9 % Normal 30.5-36.0 [facility] Comment on above: Performed By: #### L [id number] ####Catalogue Maker: ANAHY AVILA ([id number])[facility] [place] (SWRLAB)[address] [place] [address] [place] MCV (RBC) [Entitic vol] 91.1 fL Normal 77.0-99.0 S [facility] Comment on above: Performed By: #### L [id number] ####Catalogue Maker: ANAHY AVILA ([id number])[facility] [place] (SWRLAB)[address] [place] [address] [place] Monocytes (Bld) [#/Vol] 1.5 10*3/uL High 0.0-0.9 [facility] Comment on above: Performed By: #### L [id number] ####Catalogue Maker: ANAHY AVILA ([id number])[facility] [place] (SWRLAB)[address] [place] [address] [place] Monocytes/100 WBC (Bld) 9.1 % Normal 5.0-13.0 S [facility] Comment on above: Performed By: #### L [id number] ####Catalogue Maker: ANAHY AVILA ([id number])LYNETTE [place] (SWRLAB)[address] [place] [address] [place] NEUTROPHILS ABSOLUTE 11.5 10*3/uL High 1.8-7.5 [facility] Comment on above: Performed By: #### L [id number] ####Catalogue Maker: ANAHY AVILA ([id number])LYNETTE [place] (SWRLAB)[address] [place] [address] Neutrophils/100 WBC (Bld) 69.8 % Normal 38.0-82.0 [facility] Comment on above: Performed By: #### L [id number] ####Catalogue Maker: ANAHY AVILA ([id number])[facility] [place] (SWRLAB)[address] [place] [address] NRBC 0.0 /100 WBCs Normal 0.0-2.0 [facility] Comment on above: Performed By: #### L [id number] ####Catalogue Maker: ANAHY AVILA ([id number])[facility] [place] (SWRLAB)[address] [place] [address] Platelet mean volume (Bld) [Entitic vol] 8.7 fL Low 9.0-12.7 [facility] Comment on above: Result Comment: MPV is a calculated measurement using platelet volume ratio Performed By: #### L [id number] ####Catalogue Maker: ANAHY AVILA ([id number])[facility] [place] (SWRLAB)[address] [place] [address] [place] Platelets (Bld) [#/Vol] 517 10*3/uL High 140-440 [facility] Comment on above: Performed By: #### L [id number] ####Catalogue Maker: ANAHY AVILA ([id number])[facility] [place] (SWRLAB)[address] [place] [address] [place] RBC (Bld) [#/Vol] 2.82 10*6/uL Low 4.40-5.90 [facility] Comment on above: Performed By: #### L [id number] ####Catalogue Maker: ANAHY AVILA ([id number])[facility] (SWRLAB)[address] WBC (Bld) [#/Vol] 16.5 10*3/uL High 3.6-10.7 [facility] Comment on above: Performed By: #### L [id number] ####Catalogue Maker: ANAHY ROSALIECARLOS ([id number])[facility]ENTERAngel [place]AN [place] (SWRLAB)[address] Progress Noteon 06-17-2025 Progress [facility] Progress Note Normal [facility] Progress Noteon 06-02-2025 Progress Note Normal [facility] Progress Noteon 05-19-2025 Progress Note Normal [facility] Progress Noteon 05-11-2025 Progress Note Normal [facility] Progress Noteon 05-06-2025 Progress Note Normal [facility] Progress Noteon 05-04-2025 Progress Note Normal [facility] Progress Noteon 05-03-2025 Progress Note [facility] Progress Note CT abdomen with mura l thickening involving the cecum and terminal ileum concern for neoplasm versus inflammation. Seen by GI with plan for EGD and colonoscopy once stable. -GI follow-up Normal [facility] Progress Note Noted to have irregular heart rhythm during hospitalization and multiple EKGs show sinus rhythm with frequent PACs. -Continue Toprol 25 mg p.o. daily Normal [facility] Progress Note Normal [facility] Progress Note Creatinine 1.46 on admission. Peak creatinine 1.78. Most recent creatinine 1.8 per labs 04/26/2025 - Continue to monitor - may have to accept a higher creatinine to keep him out of HF Normal [facility] Progress Note Bedside thoracentesi s 04/09/2025 with 1 L removed from the left and 600 mL removed from the right. Repeat left thoracentesis 04/14/2025 with 600 mL removed. 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 NO angina. - no ASA 2/2 anemia - continue Toprol 25 mg po daily - continue atorvastatin 20 mg po daily - not a candidate or invasive workup due to anemia, advanced age and frailty Normal [facility] Progress Note Normal [facility] Progress Noteon 04-27-2025 Progress Note Normal [facility] Progress Noteon 04-20-2025 Progress Note Normal [facility] Progress Noteon 04-19-2025 Progress Note Normal [facility] [id number] 04-18-2025 [id number] Normal [facility] [id number] 04-17-2025 [id number] Normal [facility] [id number] Assisted/SNF - [facility] - [facility] Member [address] [place] [address] [phone] [id number] Patient/Family Choice Normal [facility] [id number] Normal [facility] CBC W Auto Differential pane l (Bld)on 04-17-2025 Erythrocyte distribution width (RBC) [Ratio] 25.7 % High 11.5 - 15.0 % [facility] Hematocrit (Bld) [Volume fraction] 27.9 % Low 40.0 - 52.0 % [facility] Hemoglobin (Bld) [Mass/Vol] 7.9 g/dL Low 13.0 - 18.0 g/dL [facility] MCH (RBC) [Entitic mass] 23.8 pg Low 26. 0 - 34.0 pg [facility] MCHC (RBC) [Mass/Vol] 28.3 % Low 30.5 - 36.0 % [facility] MCV (RBC) [Entitic vol] 84 fL 77.0 - 99.0 fL [facility] Platelet mean volume (Bld) [Entitic vol] 9 fL 9.0 - 12.7 fL [facility] Platelets (Bld) [#/Vol] 419 10*3/uL 140 - 440 10*3/uL [facility] RBC (Bld) [#/Vol] 3.32 10*6/uL Low 4.40 - 5.9 0 10*6/uL [facility] WBC (Bld) [#/Vol] 12 10*3/uL High 3.6 - 10.7 10*3/uL [facility] CBC WITH AUTO DIFFERENTIALon 04-17-2025 Erythrocyte distribution width (RBC) [Ratio] 25.7 % High 11.5-15.0 [facility] Comment on above: Performed By: #### L [id number], [id number] ####Catalogue Maker: UNA ARCE ([id number])[facility] CENTERAngel [facility] (SBHLAB)[address] Hematocrit (Bld) [Volume fraction] 27.9 % Low 40.0-52.0 [facility] Comment on above: Performed By: #### L [id number], [id number] ####Catalogue Maker: UNA ARCE ([id number])[facility] CENTERAngel [facility]ENTERMarisol (SBHLAB)[address] [place] [address] Hemoglobin (Bld) [Mass/Vol] 7.9 g/dL Low 13.0-18.0 [facility] Comment on above: Performed By: #### Gilbert [id number], [id number] ####Catalogue Maker: UNA ARCE ([id number])[facility] CENTERAngel [facility] (SBHLAB)[address] MCH (RBC) [Entitic mass] 23.8 pg Low 26.0-34.0 [facility] Comment on above: Performed By: #### L [id number], [id number] ####Catalogue Maker: UNA AREC ([id number])[facility]ENTERAngel [facility] CENTERMarisol (SBHLAB)[address] MCHC 28.3 % Low 30.5-36.0 [facility] Comment on above: Performed By: #### L [id number], [id number] ####Catalogue Maker: UNA ARCE ([id number])[facility]PITALLUIS (SBHLAB)[address] MCV (RBC) [Entitic vol] 84.0 fL Normal 77.0-99.0 S [facility] Comment on above: Performed By: #### L [id number], [id number] ####Catalogue Maker: UNA ARCE ([id number])LYNETTE SANCHEZLUIS (SBHLAB)[address] Platelet mean volume (Bld) [Entitic vol] 9.0 fL Normal 9.0-12.7 [facility] Comment on above: Performed By: #### L [id number], [id number] ####Catalogue Maker: UNA ARCE ([id number])[facility] CENTERAngel SANCHEZCHRISTINAN (SBHLAB)[address] Platelets (Bld) [#/Vol] 419 10*3/uL Normal 140-440 [facility] Comment on above: Performed By: #### L [id number], [id number] ####Catalogue Maker: UNA ARCE ([id number])[facility] CENTERAngel SANCHEZCHRISTINAN (SBHLAB)[address] RBC (Bld) [#/Vol] 3.32 10*6/uL Low 4.40-5.90 [facility] Comment on above: Performed By: #### L ON6435, [id number] ####Catalogue Maker: UNA ARCE ([id number])[facility] CENTERAngel SANCHEZLUIS (SBHLAB)[address] [place] [address] WBC (Bld) [#/Vol] 12.0 10*3/uL High 3.6-10.7 [facility] Comment on above: Performed By: #### L [id number], [id number] ####Catalogue Maker: UNA ARCE ([id number])[facility]ENTERAngel SANCHEZCHRISTINAN (SBHLAB)[address] COMPREHENSIVE METABOLIC PANE Anant 04-17-2025 Albumin [Mass/Vol] 2.1 g/dL Low 3.4-4.8 [facility] Comment on above: Performed By: #### L AB103, LAB17 ####Catalogue Maker: UNA ARCE ([id number])[facility] [place] (SBHLAB)[address] ALP [Catalytic activity/Vol] 49 U/L Normal 40-150 [facility] Comment on above: Performed By: #### L AB103, LAB17 ####Catalogue Maker: UNA ARCE ([id number])[facility] CENTERA [place] (SBHLAB)[address] [place] [address] [place] ALT [Catalytic activity/Vol] U/L Normal <40 [facility] Comment on above: Performed By: #### L AB103, LAB17 ####Catalogue Maker: UNA ARCE ([id number])[facility]ENTERA [place] (SBHLAB)[address] Anion gap [Moles/Vol] 10 mmol/L Normal 3-13 [facility] Comment on above: Performed By: #### L AB103, LAB17 ####Catalogue Maker: UNA ARCE ([id number])[facility]ENTERA [place] (SBHLAB)[address] AST [Catalytic activity/Vol] 22 U/L Normal <34 [facility] Comment on above: Performed By: #### L AB103, LAB17 ####Catalogue Maker: UNA ARCE ([id number])[facility]ENTERA [place] (SBHLAB)[address] Bilirubin [Mass/Vol] 0.5 mg/dL Normal <1.2 [facility] Comment on above: Performed By: #### L AB103, LAB17 ####Catalogue Maker: UNA ARCE ([id number])[facility]ENTERA [place] (SBHLAB)[address] Calcium [Mass/Vol] 8.4 mg/dL Low 8.8-10.0 [facility] Comment on above: Performed By: #### L AB103, LAB17 ####Catalogue Maker: UNA ARCE ([id number])[facility]ENTERA [place] (SBHLAB)[address] Chloride [Moles/Vol] 88 mmol/L Low 98-107 [facility] Comment on above: Performed By: #### L AB103, LAB17 ####Catalogue Maker: UNA ARCE ([id number])[facility] CENTERAngel SANCHEZGUADALUPE COUNTY HOSPITALN (SBHLAB)[address] CO2 [Moles/Vol] 40 mmol/L High 23-31 [facility] Comment on above: Performed By: #### L AB103, LAB17 ####Catalogue Maker: UNA ARCE ([id number])[facility] (SBHLAB)[address] Creatinine [Mass/Vol] 1.67 mg/dL High 0.72-1.25 [facility] Comment on above: Performed By: #### L AB103, LAB17 ####Catalogue Maker: UNA ARCE ([id number])[facility] (SBHLAB)[address] GLOMERULAR FILTRATION RATE ML/MIN/1.73 SQ M.PREDICTED 38.9 mL/min/1.73m*2 Low >60.0 [facility] Comment on above: Result Comment: Calc ulation based on the Chronic Kidney Disease Epidemiology Collaboration (CKD-EPI) equation refit without adjustment for race Performed By: #### L AB103, LAB17 ####Catalogue Maker: UNA ARCE ([id number])[facility] ([facility])[address] Glucose [Mass/Vol] 94 mg/dL Normal 82-115 [facility] Comment on above: Performed By: #### L AB103, LAB17 ####Catalogue Maker: UNA ARCE ([id number])[facility] (SBHLAB)[address] Potassium [Moles/Vol] 3.6 mmol/L Normal 3.5-5.1 [facility] Comment on above: Result Comment: [facility] potassium values may be up to 0.5 mmol/L lower than serum values. Performed By: #### L AB103, LAB17 ####Catalogue Maker: UNA YAZMIN ([id number])[facility] CENTERAngel SANCHEZGUADALUPE COUNTY HOSPITALN (SBHLAB)[address] Protein [Mass/Vol] 5.8 g/dL Low 6.4-8.3 [facility] Comment on above: Performed By: #### L AB103, LAB17 ####Catalogue Maker: UNA BERMUDEZPEDRO ([id number])[facility]ENTERAngel [facility]ZGUADALUPE COUNTY HOSPITALN (SBHLAB)[address] Sodium [Moles/Vol] 138 mmol/L Normal 136-145 [facility] Comment on above: Performed By: #### L AB103, LAB17 ####Catalogue Maker: UNA BERMUDEZPEDRO ([id number])[facility]ENTERAngel [facility]ZGUADALU[facility] HOSPITALN (SBHLAB)[address] Urea nitrogen [Mass/Vol] 46 mg/dL High 9-23 [facility] Comment on above: Performed By: #### L AB103, LAB17 ####Catalogue Maker: UNA YAZMIN ([id number])[facility] (SBHLAB)[address] Comprehensive metabolic 1998 panelon 04-17-2025 Albumin [Mass/Vol] 2.1 g/dL Low 3.4 - 4.8 g/dL [facility] ALP [Catalytic activity/Vol] 49 U/L 40 - 150 U/L [facility] ALT [Catalytic activity/Vol] U/L NINF - 40 U/L [facility] Anion gap [Moles/Vol] 10 mmol/L 3 - 13 mmol/L [facility] AST [Catalytic activity/Vol] 22 U/L NINF - 34 U/L [facility] Bilirubin [Mass/Vol] 0.5 mg/dL NINF - 1.2 mg/dL [facility] Calcium [Mass/Vol] 8.4 mg/dL Low 8.8 - 10. 0 mg/dL [facility] Chloride [Moles/Vol] 88 mmol/L Low 98 - 10 7 mmol/L [facility] CO2 [Moles/Vol] 40 mmol/L High 23 - 31 mmol/L [facility] Creatinine [Mass/Vol] 1.67 mg/dL High 0.72 - 1.25 mg/dL [facility] GFR/1.73 sq M.predicted (S/P/Bld) [Vol rate/Area] 38.9 mL/min Low - PINF [facility] Glucose [Mass/Vol] 94 mg/dL 82 - 115 mg/dL [facility] Interpretation and review of laboratory results Abnormal [facility] Potassium [Moles/Vol] 3.6 mmol/L 3.5 - 5.1 mmol/L [facility] Protein [Mass/Vol] 5.8 g/dL Low 6.4 - 8.3 g/dL [facility] Sodium [Moles/Vol] 138 mmol/L 136 - 145 mmol/L [facility] Urea nitrogen [Mass/Vol] 46 mg/dL High 9 - 23 mg/d L [facility] Laboratory - Chemistry and C hemistry - challengeon 04-17-2025 Magnesium [Mass/Vol] 1.8 mg/dL 1.6 - 2 .6 mg/dL [facility] Laboratory - Hematology and Cell countson 04-17-2025 Anisocytosis Ql (Bld) Slight Abnormal (none) [facility] Basophils (Bld) [#/Vol] 0.4 10*3/uL High 0.0 - 0.2 10*3/uL [facility] Basophils/100 WBC (Bld) 3 % High 0 - 2 % [facility] Eosinophils (Bld) [#/Vol] 0.2 10*3/uL 0.0 - 0.5 10*3/uL [facility] Eosinophils/100 WBC (Bld) 2 % 0 - 6 % [facility] Hypochromia Ql (Bld) Moderate Abnormal (none) [facility] Lymphocytes (Bld) [#/Vol] 1.3 10*3/uL 1.0 - 4.3 10*3/uL [facility] Lymphocytes/100 WBC (Bld) 11 % Low 15 - 45 % [facility] Monocytes (Bld) [#/Vol] 0.8 10*3/uL 0.0 - 0.9 10*3/uL [facility] Monocytes/100 WBC (Bld) 7 % 5 - 13 % [facility] Neutrophils (Bld) [#/Vol] 9.2 10*3/uL High 1.8 - 7.5 10*3/uL [facility] Poikilocytosis LM Ql (Bld) Moderate Abnormal (none) [facility] Polychromasia LM Ql (Bld) Slight Abnormal (none) [facility] RBC morphology finding Nom (Bld) abnormal [facility] Segmented neutrophils/100 WBC (Bld) 77 % 38 - 82 % [facility] Stomatocytes LM Ql (Bld) Moderate Abnormal (none) [facility] Target cells LM Ql (Bld) Slight Abnormal (none) [facility] MAGNESIUMon 04-17-2025 Magnesium [Mass/Vol] 1.8 mg/dL Normal 1.6-2.6 [facility] Comment on above: Result Comment: YARELI [place] COMMENTS:Higher values can be expected in females during menses. Performed By: #### L AB103, LAB17 ####Catalogue Maker: UNA ARCE ([id number])[facility] CENTERAngel [facility]ENTERMarisol ([facility])[address] MANUAL DIFFERENTIAL (CELLAVI BANDAR)on 04-17-2025 ANISOCYTOSIS PRESENCE IN BLOOD BY LIGHT MICROSCOPY Slight Abnormal (none) [facility] Comment on above: Performed By: #### L [id number], [id number] ####Catalogue Maker: UNA ARCE ([id number])[facility] MED[facility] CENTERAgnel [facility]ENTERMarisol ([facility])[address] BAND NEUTROPHILS TOTAL PER COUNTED LEUKOCYTES BY MANUAL COUNT Normal [facility] Comment on above: Performed By: #### L [id number], [id number] ####Catalogue Maker: UNA ARCE ([id number])[facility] CENTERAngel [place] ([facility])[address] [place] [address] [place] BASOPHILS (10*3/UL) IN BLOOD-CELLAVISION 0.4 10*3/uL High 0.0-0.2 [facility] Comment on above: Performed By: #### L [id number], [id number] ####Catalogue Maker: UNA ARCE ([id number])[facility] CENTERA [place] (SBAB)[address] [place] [address] [place] BASOPHILS TOTAL PER COUNTED LEUKOCYTES BY MANUAL COUNT 3 Normal [facility] Comment on above: Performed By: #### L [id number], [id number] ####Catalogue Maker: UNA STAUFFERMELANIE ([id number])[facility] [place] (SBHLAB)[address] [place] [address] [place] BASOPHILS/100 LEUKOCYTES IN BLOOD-CELLAVISION 3 % High 0-2 [facility] Comment on above: Performed By: #### L [id number], [id number] ####Catalogue Maker: UNA STAUFFERMELANIE ([id number])[facility] [place] (SBHLAB)[address] [place] [address] [place] BLASTS TOTAL PER COUNTED LEUKOCYTES BY MANUAL COUNT Normal [facility] Comment on above: Performed By: #### L [id number], [id number] ####Catalogue Maker: UNA STAUFFERMELANIE ([id number])[facility]ENTERA [place] (SBHLAB)[address] [place] [address] [place] EOSINOPHILS (10*3/UL) IN BLOOD-CELLAVISION 0.2 10*3/uL Normal 0.0-0.5 [facility] Comment on above: Performed By: #### L [id number], [id number] ####Catalogue Maker: UNA ARCE ([id number])[facility] [place] (SBHLAB)[address] [place] [address] [place] EOSINOPHILS TOTAL PER COUNTED LEUKOCYTES BY MANUAL COUNT 2 High 0-1 [facility] Comment on above: Performed By: #### L [id number], [id number] ####Catalogue Maker: UNA STAUFFERMELANIE ([id number])[facility] [place] (SBHLAB)[address] [place] [address] [place] EOSINOPHILS/100 LEUKOCYTES IN BLOOD-CELLAVISION 2 % Normal 0-6 [facility] Comment on above: Performed By: #### L [id number], [id number] ####Catalogue Maker: UNA ARCE ([id number])[facility]ENTERA [place] (SBHLAB)[address] [place] [address] [place] HYPOCHROMIA (PRESENCE) IN BLOOD BY LIGHT MICROSCOPY Moderate Abnormal (none) [facility] Comment on above: Performed By: #### L [id number], [id number] ####Catalogue Maker: UNA ARCE ([id number])[facility] CENTERA BARBGUADALUPE COUNTY HOSPITALN (SBHLAB)[address] LYMPHOCYTES (10*3/UL) IN BLOOD-CELLAVISION 1.3 10*3/uL Normal 1.0-4.3 [facility] Comment on above: Performed By: #### L [id number], [id number] ####Catalogue Maker: UNA ARCE ([id number])[facility] CENTERA BARBGUADALUPE COUNTY HOSPITALN (SBHLAB)[address] LYMPHOCYTES TOTAL PER COUNTED LEUKOCYTES BY MANUAL COUNT 11 Normal [facility] Comment on above: Performed By: #### L [id number], [id number] ####Catalogue Maker: UNA ARCE ([id number])[facility] (SBHLAB)[address] [place] [address] [place] LYMPHOCYTES/100 LEUKOCYTES IN BLOOD-CELLAVISION 11 % Low 15-45 [facility] Comment on above: Performed By: #### L [id number], [id number] ####Catalogue Maker: UNA ARCE ([id number])[facility] (SBHLAB)[address] METAMYELOCYTES TOTAL PER COUNTED LEUKOCYTES BY MANUAL COUNT Normal [facility] Comment on above: Performed By: #### L [id number], [id number] ####Catalogue Maker: UNA ARCE ([id number])[facility] CENTERA BARBGUADALUPE COUNTY HOSPITALN (SBHLAB)[address] [place] [address] [place] MONOCYTES (10*3/UL) IN BLOOD-CELLAVISION 0.8 10*3/uL Normal 0.0-0.9 [facility] Comment on above: Performed By: #### L [id number], [id number] ####Catalogue Maker: UNA ARCE ([id number])[facility] [place] (SBHLAB)[address] [place] [address] [place] MONOCYTES TOTAL PER COUNTED LEUKOCYTES BY MANUAL COUNT 7 Normal [facility] Comment on above: Performed By: #### L [id number], [id number] ####Catalogue Maker: UNA STAUFFERMELANIE ([id number])[facility] [place] (SBHLAB)[address] [place] [address] [place] MONOCYTES/100 LEUKOCYTES IN BLOOD-LUCIANA 7 % Normal 5-13 [facility] Comment on above: Performed By: #### L GT0632, [id number] ####Catalogue Maker: UNA ARCE ([id number])[facility] [place] (SBHLAB)[address] [place] [address] [place] MYELOCYTES COUNTED BY MANUAL COUNT Normal [facility] Comment on above: Performed By: #### L [id number], [id number] ####Catalogue Maker: UNA ARCE ([id number])[facility] [place] (SBHLAB)[address] [place] [address] [place] NEUTROPHILS TOTAL PER COUNTED LEUKOCYTES BY MANUAL COUNT 77 Normal [facility] Comment on above: Performed By: #### L [id number], [id number] ####Catalogue Maker: UNA ARCE ([id number])[facility] [place] (SBHLAB)[address] [place] [address] [place] POIKILOCYTOSIS (PRESENCE) IN BLOOD BY LIGHT MICROSCOPY Moderate Abnormal (none) [facility] Comment on above: Performed By: #### L [id number], [id number] ####Catalogue Maker: UNA ARCE ([id number])[facility] [place] (SBHLAB)[address] [place] [address] [place] POLYCHROMASIA IN BLOOD BY LIGHT MICROSCOPY Slight Abnormal (none) [facility] Comment on above: Performed By: #### L [id number], [id number] ####Catalogue Maker: UNA ARCE ([id number])[facility]ENTERA [place] (SBHLAB)[address] [place] [address] [place] PROMYELOCYTES TOTAL PER COUNTED LEUKOCYTES BY MANUAL COUNT Normal [facility] Comment on above: Performed By: #### L [id number], [id number] ####Catalogue Maker: UNA ARCE ([id number])[facility]ENTERA [place] (SBHLAB)[address] [place] [address] [place] RBC MORPHOLOGY IN BLOOD abnormal Normal [facility] Comment on above: Performed By: #### L [id number], [id number] ####Catalogue Maker: UNA ARCE ([id number])[facility]ENTERA [place] (SBHLAB)[address] [place] [address] [place] SEGMENTED NEUTROPHILS (10*3/UL) IN BLOOD-CELLAVISION 9.2 10*3/uL High 1.8-7.5 [facility] Comment on above: Performed By: #### L [id number], [id number] ####Catalogue Maker: UNA ARCE ([id number])[facility]ENTERA [place] (SBHLAB)[address] [place] [address] [place] SEGMENTED NEUTROPHILS/100 LEUKOCYTES-CE 77 % Normal 38-82 [facility] Comment on above: Performed By: #### L [id number], [id number] ####Catalogue Maker: UNA ARCE ([id number])[facility]ENTERA [place] (SBHLAB)[address] [place] [address] [place] STOMATOCYTES IN BLOOD BY LIGHT MICROSCOPY Moderate Abnormal (none) [facility] Comment on above: Performed By: #### L [id number], [id number] ####Catalogue Maker: UNA ARCE ([id number])[facility]ENTERA [place] (SBHLAB)[address] [place] [address] [place] TARGET CELLS IN BLOOD BY LIGHT MICROSCOPY Slight Abnormal (none) [facility] Comment on above: Performed By: #### L [id number], [id number] ####Catalogue Maker: UNA ARCE ([id number])[facility] CENTERA [place] (SBHLAB)[address] [place] [address] [place] UNCLASSIFIED CELLS TOTAL PER COUNTED LEUKOCYTES BY MANUAL COUNT Normal [facility] Comment on above: Performed By: #### L [id number], [id number] ####Catalogue Maker: UNA BERMUDEZPEDRO ([id number])[facility] (SBHLAB)[address] VARIANT LYMPHOCYTES TOTAL PER COUNTED LEUKOCYTES BY MANUAL COUNT Normal [facility] Comment on above: Performed By: #### L [id number], [id number] ####Catalogue Maker: UNA ARCE ([id number])[facility] (SBHLAB)[address] Magnesium [Mass/Vol]on 04-17 Interpretation and review of laboratory results Normal [facility] No Panel Informationon 04-17 [facility]ophils [facility] Eosin[facility] Manual 2 High 0 - 1 [facility] Interpretation and review of laboratory results Abnormal [facility] Lymphocytes Manual 11 [facility] Monocytes Manual 7 [facility] Neutrophils Manual 77 [facility] Nursing Noteon 04-17-2025 Nursing Note Report given to Flor MYERS at [facility]. All belongings sent with patient, including eyewear. HL removed, site WNL. Normal [facility] Progress Noteon 04-17-2025 Progress Note Normal [facility] Progress Note Normal [facility] [id number] 04-16-2025 [id number] Tasked weekend TTC t o follow for possible dc over the weekend. clinical quality manager to follow and assist as needed. [facility] [phone] Complete in HEN S for [facility] per TCC request [facility] [phone] [facility] CBC W Auto Differential pane l (Bld)Ordered By: Dayan Hernandez on 04-16-2025 Erythrocyte distribution width (RBC) [Ratio] 25.7 % High 11.5 - 15.0 % [facility] Hematocrit (Bld) [Volume fraction] 28.4 % Low 40.0 - 52.0 % [facility] Hemoglobin (Bld) [Mass/Vol] 8 g/dL Low 13.0 - 18.0 g/dL [facility] Interpretation and review of laboratory results Abnormal [facility] MCH (RBC) [Entitic mass] 23.7 pg Low 26. 0 - 34.0 pg [facility] MCHC (RBC) [Mass/Vol] 28.2 % Low 30.5 - 36.0 % [facility] MCV (RBC) [Entitic vol] 84.3 fL 77.0 - 99.0 fL [facility] Platelet mean volume (Bld) [Entitic vol] 9.1 fL 9.0 - 12.7 fL [facility] Platelets (Bld) [#/Vol] 405 10*3/uL 140 - 440 10*3/uL [facility] RBC (Bld) [#/Vol] 3.37 10*6/uL Low 4.40 - 5.9 0 10*6/uL [facility] WBC (Bld) [#/Vol] 13.1 10*3/uL High 3.6 - 10.7 10*3/uL [facility] CBC WITH AUTO DIFFERENTIALon 04-16-2025 Erythrocyte distribution width (RBC) [Ratio] 25.7 % High 11.5-15.0 [facility] Comment on above: Performed By: #### Gilbert [id number], [id number] ####Catalogue Maker: UNA ARCE ([id number])[facility] ([facility])[address] [place] [address] Hematocrit (Bld) [Volume fraction] 28.4 % Low 40.0-52.0 [facility] Comment on above: Performed By: #### Gilbert [id number], [id number] ####Catalogue Maker: UNA ARCE ([id number])[facility] ([facility])[address] [place] [address] Hemoglobin (Bld) [Mass/Vol] 8.0 g/dL Low 13.0-18.0 [facility] Comment on above: Performed By: #### L [id number], [id number] ####Catalogue Maker: UNA [id number])[facility] MCKAYN (SBHLAB)[address] MCH (RBC) [Entitic mass] 23.7 pg Low 26.0-34.0 [facility] Comment on above: Performed By: #### L [id number], [id number] ####Catalogue Maker: UNA ARCE ([id number])[facility] ([facility])[address] MCHC 28.2 % Low 30.5-36.0 [facility] Comment on above: Performed By: #### L [id number], [id number] ####Catalogue Maker: UNA ARCE ([id number])[facility] ([facility])[address] MCV (RBC) [Entitic vol] 84.3 fL Normal 77.0-99.0 [facility] Comment on above: Performed By: #### L [id number], [id number] ####Catalogue Maker: UNA ARCE ([id number])[facility] ([facility])[address] Platelet mean volume (Bld) [Entitic vol] 9.1 fL Normal 9.0-12.7 [facility] Comment on above: Performed By: #### L [id number], [id number] ####Catalogue Maker: UNA ARCE ([id number])[facility] ([facility])[address] Platelets (Bld) [#/Vol] 405 10*3/uL Normal 140-440 [facility] Comment on above: Performed By: #### L [id number], [id number] ####Catalogue Maker: UNA ARCE ([id number])[facility] [facility] ([facility])[address] RBC (Bld) [#/Vol] 3.37 10*6/uL Low 4.40-5.90 [facility] Comment on above: Performed By: #### L [id number], [id number] ####Catalogue Maker: UNA ARCE ([id number])[facility] (SB[facility])[address] WBC (Bld) [#/Vol] 13.1 10*3/uL High 3.6-10.7 [facility] Comment on above: Performed By: #### L [id number], [id number] ####Catalogue Maker: UNA ARCE ([id number])[facility] (SB[facility])[address] COMPREHENSIVE METABOLIC PANE Anant 04-16-2025 Albumin [Mass/Vol] 2.2 g/dL Low 3.4-4.8 [facility] Comment on above: Performed By: #### L AB103, LAB17 ####Catalogue Maker: UNA ARCE ([id number])[facility] ([facility] ALP [Catalytic activity/Vol] 55 U/L Normal 40-150 [facility] Comment on above: Performed By: #### L AB103, LAB17 ####Catalogue Maker: UNA ARCE ([id number])[facility] (SBHLAB)[address] ALT [Catalytic activity/Vol] 6 U/L Normal <40 [facility] Comment on above: Performed By: #### L AB103, LAB17 ####Catalogue Maker: UNA ARCE ([id number])[facility] (SB[facility])[address] Anion gap [Moles/Vol] 10 mmol/L Normal 3-13 [facility] Comment on above: Performed By: #### L AB103, LAB17 ####Catalogue Maker: UNA ARCE ([id number])[facility] (SBHLAB)[address] AST [Catalytic activity/Vol] 23 U/L Normal <34 [facility] Comment on above: Performed By: #### L AB103, LAB17 ####Catalogue Maker: UNA ARCE ([id number])[facility] [place] (SBHLAB)[address] Bilirubin [Mass/Vol] 0.5 mg/dL Normal <1.2 [facility] Comment on above: Performed By: #### L AB103, LAB17 ####Catalogue Maker: UNA ARCE ([id number])[facility] [place] (SBHLAB)[address] Calcium [Mass/Vol] 8.2 mg/dL Low 8.8-10.0 [facility] Comment on above: Performed By: #### L AB103, LAB17 ####Catalogue Maker: UNA ARCE ([id number])[facility] [place] (SBHLAB)[address] Chloride [Moles/Vol] 87 mmol/L Low 98-107 [facility] Comment on above: Performed By: #### L AB103, LAB17 ####Catalogue Maker: UNA ARCE ([id number])[facility] [place] (SBHLAB)155 [place] [address] [place] CO2 [Moles/Vol] 43 mmol/L High 23-31 [facility] Comment on above: Performed By: #### L AB103, LAB17 ####Catalogue Maker: UNA ARCE ([id number])[facility] [place] (SBHLAB)[address] Creatinine [Mass/Vol] 1.81 mg/dL High 0.72-1.25 [facility] Comment on above: Performed By: #### L AB103, LAB17 ####Catalogue Maker: UNA ARCE ([id number])[facility] [place] (SBHLAB)[address] GLOMERULAR FILTRATION RATE ML/MIN/1.73 SQ M.PREDICTED 35.3 mL/min/1.73m*2 Low >60.0 [facility] Comment on above: Result Comment: Calc ulation based on the Chronic Kidney Disease Epidemiology Collaboration (CKD-EPI) equation refit without adjustment for race Performed By: #### L AB103, LAB17 ####Catalogue Maker: UNA ARCE ([id number])[facility] [place] (SBHLAB)[address] Glucose [Mass/Vol] 114 mg/dL Normal 82-115 [facility] Comment on above: Performed By: #### L AB103, LAB17 ####Catalogue Maker: UNA ARCE ([id number])[facility] (SBHLAB)[address] Potassium [Moles/Vol] 3.6 mmol/L Normal 3.5-5.1 [facility] Comment on above: Result Comment: [facility] potassium values may be up to 0.5 mmol/L lower than serum values. Performed By: #### L AB103, LAB17 ####Catalogue Maker: UNA ARCE ([id number])[facility] [place] (SBHLAB)[address] Protein [Mass/Vol] 6.0 g/dL Low 6.4-8.3 [facility] Comment on above: Performed By: #### L AB103, LAB17 ####Catalogue Maker: UNA ARCE ([id number])[facility] [place] (SBHLAB)[address] [place] [address] [place] Sodium [Moles/Vol] 140 mmol/L Normal 136-145 [facility] Comment on above: Performed By: #### L AB103, LAB17 ####Catalogue Maker: UNA ARCE ([id number])[facility] [place] (SBHLAB)155 [place] [address] [place] Urea nitrogen [Mass/Vol] 46 mg/dL High 9-23 [facility] Comment on above: Performed By: #### L AB103, LAB17 ####Catalogue Maker: UNA ARCE ([id number])[facility] [place] (SBHLAB)[address] [place] [id number] [facility] Comprehensive metabolic 1998 panelon 04-16-2025 Albumin [Mass/Vol] 2.2 g/dL Low 3.4 - 4.8 g/dL [facility] ALP [Catalytic activity/Vol] 55 U/L 40 - 150 U/L [facility] ALT [Catalytic activity/Vol] 6 U/L NINF - 40 U/L [facility] Anion gap [Moles/Vol] 10 mmol/L 3 - 13 mmol/L [facility] AST [Catalytic activity/Vol] 23 U/L NINF - 34 U/L [facility] Bilirubin [Mass/Vol] 0.5 mg/dL NINF - 1.2 mg/dL [facility] Calcium [Mass/Vol] 8.2 mg/dL Low 8.8 - 10. 0 mg/dL [facility] Chloride [Moles/Vol] 87 mmol/L Low 98 - 10 7 mmol/L [facility] CO2 [Moles/Vol] 43 mmol/L High 23 - 31 mmol/L [facility] Creatinine [Mass/Vol] 1.81 mg/dL High 0.72 - 1.25 mg/dL [facility] GFR/1.73 sq M.predicted (S/P/Bld) [Vol rate/Area] 35.3 mL/min Low - PINF [facility] Glucose [Mass/Vol] 114 mg/dL 82 - 115 mg/dL [facility] Interpretation and review of laboratory results Abnormal [facility] Potassium [Moles/Vol] 3.6 mmol/L 3.5 - 5.1 mmol/L [facility] Protein [Mass/Vol] 6 g/dL Low 6.4 - 8.3 g/dL [facility] Sodium [Moles/Vol] 140 mmol/L 136 - 145 mmol/L [facility] Urea nitrogen [Mass/Vol] 46 mg/dL High 9 - 23 mg/d L [facility] Laboratory - Chemistry and C hemistry - challengeon 04-16-2025 Magnesium [Mass/Vol] 1.8 mg/dL 1.6 - 2 .6 mg/dL [facility] Laboratory - Hematology and Cell countson 04-16-2025 Anisocytosis Ql (Bld) Moderate Abnormal (none) [facility] Basophils (Bld) [#/Vol] 0.1 10*3/uL 0.0 - 0.2 10*3/uL [facility] Basophils/100 WBC (Bld) 1 % 0 - 2 % [facility] cells LM Ql (Bld) Slight Abnormal (none) [facility] Eosinophils (Bld) [#/Vol] 0.5 10*3/uL 0.0 - 0.5 10*3/uL [facility] Eosinophils/100 WBC (Bld) 4 % 0 - 6 % [facility] Hypochromia Ql (Bld) Slight Abnormal (none) [facility] Lymphocytes (Bld) [#/Vol] 1.6 10*3/uL 1.0 - 4.3 10*3/uL [facility] Lymphocytes/100 WBC (Bld) 12 % Low 15 - 45 % [facility] Monocytes (Bld) [#/Vol] 0.9 10*3/uL 0.0 - 0.9 10*3/uL [facility] Monocytes/100 WBC (Bld) 7 % 5 - 13 % [facility] Neutrophils (Bld) [#/Vol] 9.8 10*3/uL High 1.8 - 7.5 10*3/uL [facility] Poikilocytosis LM Ql (Bld) Slight Abnormal (none) [facility] RBC morphology finding Nom (Bld) abnormal [facility] Segmented neutrophils/100 WBC (Bld) 75 % 38 - 82 % [facility] Variant lymphocytes (Bld) [#/Vol] 0.3 10*3/uL High NINF - 0.0 10*3/uL [facility] Variant lymphocytes/100 WBC (Bld) 2 % High NINF - 0 % [facility] MAGNESIUMon 04-16-2025 Magnesium [Mass/Vol] 1.8 mg/dL Normal 1.6-2.6 [facility] Comment on above: Result Comment: ORDE R COMMENTS:Higher values can be expected in females during menses. Performed By: #### L AB103, LAB17 ####Catalogue Maker: UNA ARCE ([id number])[facility] (SBHLAB)[address] [place] [address] MANUAL DIFFERENTIAL (CELLAVI BANDAR)on 04-16-2025 ANISOCYTOSIS PRESENCE IN BLOOD BY LIGHT MICROSCOPY Moderate Abnormal (none) [facility] Comment on above: Performed By: #### L [id number], [id number] ####Catalogue Maker: UNA ARCE ([id number])[facility] [place] (SBHLAB)[address] [place] [address] [place] BAND NEUTROPHILS TOTAL PER COUNTED LEUKOCYTES BY MANUAL COUNT Normal [facility] Comment on above: Performed By: #### L [id number], [id number] ####Catalogue Maker: UNA ARCE ([id number])[facility] [place] (SBHLAB)[address] [place] [address] [place] BASOPHILS (10*3/UL) IN BLOOD-CELLAVISION 0.1 10*3/uL Normal 0.0-0.2 [facility] Comment on above: Performed By: #### L [id number], [id number] ####Catalogue Maker: UNA ARCE ([id number])[facility] [place] (SBHLAB)[address] [place] [address] [place] BASOPHILS TOTAL PER COUNTED LEUKOCYTES BY MANUAL COUNT 1 Normal [facility] Comment on above: Performed By: #### L [id number], [id number] ####Catalogue Maker: UNA ARCE ([id number])[facility] [place] (SBHLAB)[address] [place] [address] [place] BASOPHILS/100 LEUKOCYTES IN BLOOD-CELLAVISION 1 % Normal 0-2 [facility] Comment on above: Performed By: #### L [id number], [id number] ####Catalogue Maker: UNA ARCE ([id number])[facility] [place] (SBHLAB)[address] [place] [address] [place] BLASTS TOTAL PER COUNTED LEUKOCYTES BY MANUAL COUNT Normal [facility] Comment on above: Performed By: #### L [id number], [id number] ####Catalogue Maker: UNA ARCE ([id number])[facility] [place] (SBHLAB)[address] [place] [address] [place] MEENA CELLS PRESENCE IN BLOOD BY LIGHT MICROSCOPY Slight Abnormal (none) [facility] Comment on above: Performed By: #### L [id number], [id number] ####Catalogue Maker: UNA ARCE ([id number])[facility] [place] (SBHLAB)[address] [place] [address] [place] EOSINOPHILS (10*3/UL) IN BLOOD-CELLAVISION 0.5 10*3/uL Normal 0.0-0.5 [facility] Comment on above: Performed By: #### L [id number], [id number] ####Catalogue Maker: UNA ARCE ([id number])[facility] [place] (SBHLAB)[address] [place] [address] [place] EOSINOPHILS TOTAL PER COUNTED LEUKOCYTES BY MANUAL COUNT 4 High 0-1 [facility] Comment on above: Performed By: #### L [id number], [id number] ####Catalogue Maker: UNA ARCE ([id number])[facility] [place] (SBHLAB)[address] [place] [address] [place] EOSINOPHILS/100 LEUKOCYTES IN BLOOD-CELLAVISION 4 % Normal 0-6 [facility] Comment on above: Performed By: #### L [id number], [id number] ####Catalogue Maker: UNA ARCE ([id number])[facility] [place] (SBHLAB)[address] [place] [address] [place] HYPOCHROMIA (PRESENCE) IN BLOOD BY LIGHT MICROSCOPY Slight Abnormal (none) [facility] Comment on above: Performed By: #### L [id number], [id number] ####Catalogue Maker: UNA ARCE ([id number])[facility] [place] (SBHLAB)[address] [place] [address] [place] LYMPHOCYTE VARIANT/100 LEUKOCYTES IN BLOOD- CELLAVISION 2 % High <=0 [facility] Comment on above: Performed By: #### L [id number], [id number] ####Catalogue Maker: UNA ARCE ([id number])[facility] [place] (SBHLAB)[address] [place] [address] [place] LYMPHOCYTES (10*3/UL) IN BLOOD-CELLAVISION 1.6 10*3/uL Normal 1.0-4.3 [facility] Comment on above: Performed By: #### L [id number], [id number] ####Catalogue Maker: UNA STAUFFERMELANIE ([id number])[facility] [place] (SBHLAB)[address] LYMPHOCYTES TOTAL PER COUNTED LEUKOCYTES BY MANUAL COUNT 12 Normal [facility] Comment on above: Performed By: #### L [id number], [id number] ####Catalogue Maker: UNA BERMUDEZPEDRO ([id number])[facility] [place] (SBHLAB)[address] [place] [address] [place] LYMPHOCYTES/100 LEUKOCYTES IN BLOOD-CELLAVISION 12 % Low 15-45 [facility] Comment on above: Performed By: #### L [id number], [id number] ####Catalogue Maker: UNA ARCE ([id number])[facility] [place] (SBHLAB)[address] METAMYELOCYTES TOTAL PER COUNTED LEUKOCYTES BY MANUAL COUNT [facility] Comment on above: Performed By: #### L [id number], [id number] ####Catalogue Maker: UNA STAUFFERMELANIE ([id number])[facility] [place] (SBHLAB)[address] [place] [address] [place] MONOCYTES (10*3/UL) IN BLOOD-CELLAVISION 0.9 10*3/uL Normal 0.0-0.9 [facility] Comment on above: Performed By: #### L [id number], [id number] ####Catalogue Maker: UNA MOHRCER ([id number])[facility] [place] (SBHLAB)[address] [place] [address] [place] MONOCYTES TOTAL PER COUNTED LEUKOCYTES BY MANUAL COUNT 7 [facility] Comment on above: Performed By: #### L [id number], [id number] ####Catalogue Maker: UNA ARCE ([id number])[facility] [place] (SBHLAB)[address] [place] [address] [place] MONOCYTES/100 LEUKOCYTES IN BLOOD-LUCIANA 7 % Normal 5-13 [facility] Comment on above: Performed By: #### L [id number], [id number] ####Catalogue Maker: UNA ARCE ([id number])[facility] [place] (SBHLAB)[address] MYELOCYTES COUNTED BY MANUAL COUNT Normal [facility] Comment on above: Performed By: #### L [id number], [id number] ####Catalogue Maker: UNA ARCE ([id number])[facility] [place] (SBHLAB)[address] [place] [address] [place] NEUTROPHILS TOTAL PER COUNTED LEUKOCYTES BY MANUAL COUNT 77 Normal [facility] Comment on above: Performed By: #### L [id number], [id number] ####Catalogue Maker: UNA ARCE ([id number])[facility] [place] (SBHLAB)[address] [place] [address] [place] POIKILOCYTOSIS (PRESENCE) IN BLOOD BY LIGHT MICROSCOPY Slight Abnormal (none) [facility] Comment on above: Performed By: #### L [id number], [id number] ####Catalogue Maker: UNA ARCE ([id number])[facility] [place] (SBHLAB)[address] [place] [address] [place] PROMYELOCYTES TOTAL PER COUNTED LEUKOCYTES BY MANUAL COUNT Normal [facility] Comment on above: Performed By: #### L [id number], [id number] ####Catalogue Maker: UNA ARCE ([id number])[facility] [place] (SBHLAB)[address] [place] [address] [place] RBC MORPHOLOGY IN BLOOD abnormal Normal [facility] Comment on above: Performed By: #### L [id number], [id number] ####Catalogue Maker: UNA ARCE ([id number])[facility] [place] (SBHLAB)[address] [place] [address] [place] SEGMENTED NEUTROPHILS (10*3/UL) IN BLOOD-CELLAVISION 9.8 10*3/uL High 1.8-7.5 [facility] Comment on above: Performed By: #### L [id number], [id number] ####Catalogue Maker: UNA ARCE ([id number])[facility] [place] (SBHLAB)[address] SEGMENTED NEUTROPHILS/100 LEUKOCYTES-CE 75 % Normal 38-82 [facility] Comment on above: Performed By: #### L [id number], [id number] ####Catalogue Maker: UNA ARCE ([id number])[facility] (SBHLAB)[address] UNCLASSIFIED CELLS TOTAL PER COUNTED LEUKOCYTES BY MANUAL COUNT Normal [facility] Comment on above: Performed By: #### L [id number], [id number] ####Catalogue Maker: UNA ARCE ([id number])[facility] (SBAB)[address] [place] [address] VARIANT LYMPHOCYTES (10*3/UL) IN BLOOD-CELLAVISION 0.3 10*3/uL High <=0.0 [facility] Comment on above: Performed By: #### L [id number], [id number] ####Catalogue Maker: UNA ARCE ([id number])[facility] (SBAB)[address] VARIANT LYMPHOCYTES TOTAL PER COUNTED LEUKOCYTES BY MANUAL COUNT 2 Normal [facility] Comment on above: Performed By: #### L [id number], [id number] ####Catalogue Maker: UNA ARCE ([id number])[facility] (SBAB)[address] [place] [address] [place] Magnesium [Mass/Vol]on 04-16 Interpretation and review of laboratory results Normal [facility] No Panel Informationon 04-16 [facility] Atypical Lymphocytes Manual 2 [facility] Basophils Manual 1 [facility]th Eosinophils Manual 4 High 0 - 1 [facility] Interpretation and review of laboratory results Abnormal [facility] Lymphocytes Manual 12 [facility] Monocytes Manual 7 [facility] Neutrophils Manual 77 [facility] Nursing Noteon 04-16-2025 Nursing Note Normal [facility] Progress Noteon 04-16-2025 Progress Note Normal [facility] Progress Note Normal [facility] Progress Note Normal [facility] Progress Note Normal [facility] Progress Note Normal [facility] Progress Note Normal [facility] [id number] 04-15-2025 [id number] Normal [facility] Bacteria identified Anaer cx Nom (Unsp spec)on 04-15-2025 Interpretation and review of laboratory results Normal [facility] CBC W Auto Differential pane l (Bld)on 04-15-2025 Erythrocyte distribution width (RBC) [Ratio] 25.3 % High 11.5 - 15.0 % [facility] Hematocrit (Bld) [Volume fraction] 28 % Low 40.0 - 52.0 % [facility] Hemoglobin (Bld) [Mass/Vol] 7.8 g/dL Low 13.0 - 18.0 g/dL [facility] Interpretation and review of laboratory results Abnormal [facility] MCH (RBC) [Entitic mass] 23.4 pg Low 26. 0 - 34.0 pg [facility] MCHC (RBC) [Mass/Vol] 27.9 % Low 30.5 - 36.0 % [facility] MCV (RBC) [Entitic vol] 84.1 fL 77.0 - 99.0 fL [facility] Platelet mean volume (Bld) [Entitic vol] 9.1 fL 9.0 - 12.7 fL [facility] Platelets (Bld) [#/Vol] 332 10*3/uL 140 - 440 10*3/uL [facility] RBC (Bld) [#/Vol] 3.33 10*6/uL Low 4.40 - 5.9 0 10*6/uL [facility] WBC (Bld) [#/Vol] 12.4 10*3/uL High 3.6 - 10.7 10*3/uL [facility] CBC WITH AUTO DIFFERENTIALon 04-15-2025 Erythrocyte distribution width (RBC) [Ratio] 25.3 % High 11.5-15.0 [facility] Comment on above: Performed By: #### L [id number], [id number] ####Catalogue Maker: UNA MOHRCER ([id number])[facility]ENTERAngel [facility]ITALMar[facility] (SBHLAB)[address] Hematocrit (Bld) [Volume fraction] 28.0 % Low 40.0-52.0 [facility] Comment on above: Performed By: #### L [id number], [id number] ####Catalogue Maker: UNA MOHRCER ([id number])[facility]ENTER[facility] (SBHLAB)[address] Hemoglobin (Bld) [Mass/Vol] 7.8 g/dL Low 13.0-18.0 [facility] Comment on above: Performed By: #### L [id number], [id number] ####Catalogue Maker: UNA BERMUDEZPEDRO ([id number])[facility]ENTERAngel [facility] (SBHLAB)[address] [place] [address] MCH (RBC) [Entitic mass] 23.4 pg Low 26.0-34.0 [facility] Comment on above: Performed By: #### L [id number], [id number] ####Catalogue Maker: UNA ARCE ([id number])[facility] CENTERAngel [place] (SBHLAB)[address] MCHC 27.9 % Low 30.5-36.0 [facility] Comment on above: Performed By: #### L [id number], [id number] ####Catalogue Maker: UNA STAUFFERMELANIE ([id number])[facility]ENTERAngel [facility] (SBHLAB)[address] MCV (RBC) [Entitic vol] 84.1 fL Normal 77.0-99.0 [facility] Comment on above: Performed By: #### L [id number], [id number] ####Catalogue Maker: UNA STAUFFERMELANIE ([id number])[facility]ENTERAngel [facility] (SBHLAB)[address] Platelet mean volume (Bld) [Entitic vol] 9.1 fL Normal 9.0-12.7 [facility] Comment on above: Performed By: #### L [id number], [id number] ####Catalogue Maker: UNA ARCE ([id number])[facility]ENTERA [place] (SBHLAB)[address] Platelets (Bld) [#/Vol] 332 10*3/uL Normal 140-440 [facility] Comment on above: Performed By: #### L [id number], [id number] ####Catalogue Maker: UNA ARCE ([id number])[facility]ENTERAngel [place] (SBHLAB)[address] RBC (Bld) [#/Vol] 3.33 10*6/uL Low 4.40-5.90 [facility] Comment on above: Performed By: #### L [id number], [id number] ####Catalogue Maker: UNA ARCE ([id number])[facility] CENTERAngel BARBGUADALUPE COUNTY HOSPITALN (SBHLAB)[address] WBC (Bld) [#/Vol] 12.4 10*3/uL High 3.6-10.7 [facility] Comment on above: Performed By: #### L [id number], [id number] ####Catalogue Maker: UNA ARCE ([id number])[facility]ENTERAngel [facility]N (SBHLAB)[address] COMPREHENSIVE METABOLIC PANE Anant 04-15-2025 Albumin [Mass/Vol] 2.1 g/dL Low 3.4-4.8 [facility] Comment on above: Performed By: #### L AB103, LAB17 ####Catalogue Maker: UNA ARCE ([id number])[facility]ENTERAngel [facility]N (SBHLAB)[address] ALP [Catalytic activity/Vol] 48 U/L Normal 40-150 [facility] Comment on above: Performed By: #### L AB103, LAB17 ####Catalogue Maker: UNA ARCE ([id number])[facility]ENTERA [place] (SBHLAB)[address] [place] [address] [place] ALT [Catalytic activity/Vol] U/L Normal <40 [facility] Comment on above: Performed By: #### L AB103, LAB17 ####Catalogue Maker: UNA ARCE ([id number])[facility] ([facility])[address] Anion gap [Moles/Vol] 9 mmol/L Normal 3-13 [facility] Comment on above: Performed By: #### L AB103, LAB17 ####Catalogue Maker: UNA ARCE ([id number])[facility] [place] (SBHLAB)[address] AST [Catalytic activity/Vol] 21 U/L Normal <34 [facility] Comment on above: Performed By: #### L AB103, LAB17 ####Catalogue Maker: UNA ARCE ([id number])[facility] [place] (SBHLAB)[address] Bilirubin [Mass/Vol] 0.6 mg/dL Normal <1.2 [facility] Comment on above: Performed By: #### L AB103, LAB17 ####Catalogue Maker: UNA ARCE ([id number])[facility] [place] (SBHLAB)[address] Calcium [Mass/Vol] 8.2 mg/dL Low 8.8-10.0 [facility] Comment on above: Performed By: #### L AB103, LAB17 ####Catalogue Maker: UNA ARCE ([id number])[facility] [place] (SBHLAB)[address] [place] [address] [place] Chloride [Moles/Vol] 90 mmol/L Low 98-107 [facility] Comment on above: Performed By: #### L AB103, LAB17 ####Catalogue Maker: UNA ARCE ([id number])[facility] [place] (SBHLAB)[address] [place] [address] [place] CO2 [Moles/Vol] 40 mmol/L High 23-31 [facility] Comment on above: Performed By: #### L AB103, LAB17 ####Catalogue Maker: UNA ARCE ([id number])[facility] [place] (SBHLAB)[address] Creatinine [Mass/Vol] 1.58 mg/dL High 0.72-1.25 [facility] Comment on above: Performed By: #### L AB103, LAB17 ####Catalogue Maker: UNA ARCE ([id number])[facility] (SB[facility])[address] GLOMERULAR FILTRATION RATE ML/MIN/1.73 SQ M.PREDICTED 41.6 mL/min/1.73m*2 Low >60.0 [facility] Comment on above: Result Comment: Calc ulation based on the Chronic Kidney Disease Epidemiology Collaboration (CKD-EPI) equation refit without adjustment for race Performed By: #### L AB103, LAB17 ####Catalogue Maker: UNA ARCE ([id number])[facility] [place] (SBHLAB)[address] Glucose [Mass/Vol] 130 mg/dL High 82-115 [facility] Comment on above: Performed By: #### L AB103, LAB17 ####Catalogue Maker: UNA ARCE ([id number])[facility] (SB[facility]AB)[address] Potassium [Moles/Vol] 3.5 mmol/L Normal 3.5-5.1 [facility] Comment on above: Result Comment: [facility] potassium values may be up to 0.5 mmol/L lower than serum values. Performed By: #### L AB103, LAB17 ####Catalogue Maker: UNA ARCE ([id number])[facility] [place] (SBHLAB)[address] Protein [Mass/Vol] 5.7 g/dL Low 6.4-8.3 [facility] Comment on above: Performed By: #### L AB103, LAB17 ####Catalogue Maker: UNA ARCE ([id number])[facility] (SBHLAB)[address] Sodium [Moles/Vol] 139 mmol/L Normal 136-145 [facility] Comment on above: Performed By: #### L AB103, LAB17 ####Catalogue Maker: UNA ARCE ([id number])[facility] (SBHLAB)[address] Urea nitrogen [Mass/Vol] 43 mg/dL High 9-23 [facility] Comment on above: Performed By: #### L AB103, LAB17 ####Catalogue Maker: UNA ARCE ([id number])[facility] (SBHLAB)[address] [place] [address] Comprehensive metabolic 1998 panelon 04-15-2025 Albumin [Mass/Vol] 2.1 g/dL Low 3.4 - 4.8 g/dL [facility] ALP [Catalytic activity/Vol] 48 U/L 40 - 150 U/L [facility] ALT [Catalytic activity/Vol] U/L [facility] Anion gap [Moles/Vol] 9 mmol/L 3 - 13 mmol/L [facility] AST [Catalytic activity/Vol] 21 U/L [facility] U/L [facility] Bilirubin [Mass/Vol] 0.6 mg/dL NINF - 1.2 mg/dL [facility] Calcium [Mass/Vol] 8.2 mg/dL Low 8.8 - 10. 0 mg/dL [facility] Chloride [Moles/Vol] 90 mmol/L Low 98 - 10 7 mmol/L [facility] CO2 [Moles/Vol] 40 mmol/L High 23 - 31 mmol/L [facility] Creatinine [Mass/Vol] 1.58 mg/dL High 0.72 - 1.25 mg/dL [facility] GFR/1.73 sq M.predicted (S/P/Bld) [Vol rate/Area] 41.6 mL/min Low - PINF [facility] Glucose [Mass/Vol] 130 mg/dL High 82 - 115 mg/dL [facility] Interpretation and review of laboratory results Abnormal [facility] Potassium [Moles/Vol] 3.5 mmol/L 3.5 - 5.1 mmol/L [facility] Protein [Mass/Vol] 5.7 g/dL Low 6.4 - 8.3 g/dL [facility] Sodium [Moles/Vol] 139 mmol/L 136 - 145 mmol/L [facility] Urea nitrogen [Mass/Vol] 43 mg/dL High 9 - 23 mg/d L [facility] Laboratory - Chemistry and C hemistry - challengeon 04-15-2025 Magnesium [Mass/Vol] 1.8 mg/dL 1.6 - 2 .6 mg/dL [facility] Laboratory - Hematology and Cell countson 04-15-2025 Anisocytosis Ql (Bld) Moderate Abnormal (none) [facility] Basophils (Bld) [#/Vol] 0.2 10*3/uL 0.0 - 0.2 10*3/uL [facility] Basophils/100 WBC (Bld) 2 % 0 - 2 % [facility] Eosinophils (Bld) [#/Vol] 0.1 10*3/uL 0.0 - 0.5 10*3/uL [facility] Eosinophils/100 WBC (Bld) 1 % 0 - 6 % [facility] Hypochromia Ql (Bld) Moderate Abnormal (none) [facility] Lymphocytes (Bld) [#/Vol] 1.2 10*3/uL 1.0 - 4.3 10*3/uL [facility] Lymphocytes/100 WBC (Bld) 10 % Low 15 - 45 % [facility] Monocytes (Bld) [#/Vol] 1.6 10*3/uL High 0.0 - 0.9 10*3/uL [facility] Monocytes/100 WBC (Bld) 13 % 5 - 13 % [facility] Neutrophils (Bld) [#/Vol] 9.3 10*3/uL High 1.8 - 7.5 10*3/uL [facility] Poikilocytosis LM Ql (Bld) Slight Abnormal (none) [facility] RBC morphology finding Nom (Bld) abnormal [facility] Segmented neutrophils/100 WBC (Bld) 75 % 38 - 82 % [facility] Stomatocytes LM Ql (Bld) Slight Abnormal (none) [facility] Laboratory - Microbiology an d Antimicrobial susceptibilityon 04-15-2025 Bacteria identified Anaer cx Nom (Unsp spec) No growth at 5 days [facility] Lower GI hemoglobin spec 1 I A Ql (Stl)Ordered By: Haroldo Alvarez on 04-15-2025 Fecal occult blood Negative Negative [facility] Interpretation and review of laboratory results Normal [facility] MAGNESIUMon 04-15-2025 Magnesium [Mass/Vol] 1.8 mg/dL Normal 1.6-2.6 [facility] Comment on above: Result Comment: YARELI [place] COMMENTS:Higher values can be expected in females during menses. Performed By: #### L AB103, LAB17 ####Catalogue Maker: UNA ARCE ([id number])[facility] (SBHLAB)[address] [place] [address] MANUAL DIFFERENTIAL (CELLAVI BANDAR)on 04-15-2025 ANISOCYTOSIS PRESENCE IN BLOOD BY LIGHT MICROSCOPY Moderate Abnormal (none) [facility] Comment on above: Performed By: #### L [id number], [id number] ####Catalogue Maker: UNA ARCE ([id number])[facility] (SBHLAB)[address] BAND NEUTROPHILS TOTAL PER COUNTED LEUKOCYTES BY MANUAL COUNT Normal [facility] Comment on above: Performed By: #### L [id number], [id number] ####Catalogue Maker: UNA ARCE ([id number])[facility]ENTERAngel [place] (SBHLAB)[address] [place] [address] BASOPHILS (10*3/UL) IN BLOOD-CELLAVISION 0.2 10*3/uL Normal 0.0-0.2 [facility] Comment on above: Performed By: #### L [id number], [id number] ####Catalogue Maker: UNA ARCE ([id number])[facility] (SBHLAB)[address] BASOPHILS TOTAL PER COUNTED LEUKOCYTES BY MANUAL COUNT 2 Normal [facility] Comment on above: Performed By: #### L [id number], [id number] ####Catalogue Maker: UNA YAZMIN ([id number])[facility] [place] (SBHLAB)[address] [place] [address] [place] BASOPHILS/100 LEUKOCYTES IN BLOOD-CELLAVISION 2 % Normal 0-2 [facility] Comment on above: Performed By: #### L [id number], [id number] ####Catalogue Maker: UNA BERMUDEZPEDRO ([id number])[facility] [place] (SBHLAB)[address] [place] [address] [place] BLASTS TOTAL PER COUNTED LEUKOCYTES BY MANUAL COUNT Normal [facility] Comment on above: Performed By: #### L [id number], [id number] ####Catalogue Maker: UNA ARCE ([id number])[facility] [place] (SBHLAB)[address] [place] [address] [place] EOSINOPHILS (10*3/UL) IN BLOOD-CELLAVISION 0.1 10*3/uL Normal 0.0-0.5 [facility] Comment on above: Performed By: #### L [id number], [id number] ####Catalogue Maker: UNA YAZMIN ([id number])[facility] [place] (SBHLAB)[address] [place] [address] [place] EOSINOPHILS TOTAL PER COUNTED LEUKOCYTES BY MANUAL COUNT 1 Normal 0-1 [facility] Comment on above: Performed By: #### L [id number], [id number] ####Catalogue Maker: UNA BERMUDEZPEDRO ([id number])[facility] [place] (SBHLAB)[address] [place] [address] [place] EOSINOPHILS/100 LEUKOCYTES IN BLOOD-CELLAVISION 1 % Normal 0-6 [facility] Comment on above: Performed By: #### L [id number], [id number] ####Catalogue Maker: UNA BERMUDEZPEDRO ([id number])[facility] [place] (SBHLAB)[address] [place] [address] [place] HYPOCHROMIA (PRESENCE) IN BLOOD BY LIGHT MICROSCOPY Moderate Abnormal (none) [facility] Comment on above: Performed By: #### L [id number], [id number] ####Catalogue Maker: UNA YAZMIN ([id number])[facility] [place] (SBHLAB)[address] [place] [address] [place] LYMPHOCYTES (10*3/UL) IN BLOOD-CELLAVISION 1.2 10*3/uL Normal 1.0-4.3 [facility] Comment on above: Performed By: #### L [id number], [id number] ####Catalogue Maker: UNA BERMUDEZPEDRO ([id number])[facility] [place] (SBHLAB)[address] LYMPHOCYTES TOTAL PER COUNTED LEUKOCYTES BY MANUAL COUNT 10 Normal [facility] Comment on above: Performed By: #### L [id number], [id number] ####Catalogue Maker: UNA BERMUDEZPEDRO ([id number])[facility] [place] (SBHLAB)[address] [place] [address] [place] LYMPHOCYTES/100 LEUKOCYTES IN BLOOD-CELLAVISION 10 % Low 15-45 [facility] Comment on above: Performed By: #### L [id number], [id number] ####Catalogue Maker: UNA STAUFFERMELANIE ([id number])[facility] [place] (SBHLAB)[address] METAMYELOCYTES TOTAL PER COUNTED LEUKOCYTES BY MANUAL COUNT [facility] Comment on above: Performed By: #### L [id number], [id number] ####Catalogue Maker: UNA BERMUDEZPEDRO ([id number])[facility] [place] (SBHLAB)[address] [place] [address] [place] MONOCYTES (10*3/UL) IN BLOOD-CELLAVISION 1.6 10*3/uL High 0.0-0.9 [facility] Comment on above: Performed By: #### L [id number], [id number] ####Catalogue Maker: UNA STAUFFERMELANIE ([id number])[facility] [place] (SBHLAB)[address] [place] [address] [place] MONOCYTES TOTAL PER COUNTED LEUKOCYTES BY MANUAL COUNT 13 Normal [facility] Comment on above: Performed By: #### L [id number], [id number] ####Catalogue Maker: UNA ARCE ([id number])[facility] [place] (SBHLAB)[address] [place] [address] [place] MONOCYTES/100 LEUKOCYTES IN BLOOD-LUCIANA 13 % Normal - [facility] Comment on above: Performed By: #### L [id number], [id number] ####Catalogue Maker: UNA ARCE ([id number])[facility] [place] (SBHLAB)[address] MYELOCYTES COUNTED BY MANUAL COUNT [facility] Comment on above: Performed By: #### L [id number], [id number] ####Catalogue Maker: UNA ARCE ([id number])[facility] [place] (SBHLAB)[address] NEUTROPHILS TOTAL PER COUNTED LEUKOCYTES BY MANUAL COUNT 77 Normal [facility] Comment on above: Performed By: #### L [id number], [id number] ####Catalogue Maker: UNA ARCE ([id number])[facility] [place] (SBHLAB)[address] [place] [address] [place] POIKILOCYTOSIS (PRESENCE) IN BLOOD BY LIGHT MICROSCOPY Slight Abnormal (none) [facility] Comment on above: Performed By: #### L [id number], [id number] ####Catalogue Maker: UNA ARCE ([id number])[facility] [place] (SBHLAB)[address] [place] [address] [place] PROMYELOCYTES TOTAL PER COUNTED LEUKOCYTES BY MANUAL COUNT [facility] Comment on above: Performed By: #### L [id number], [id number] ####Catalogue Maker: UNA ARCE ([id number])[facility] [place] (SBHLAB)[address] [place] [address] [place] RBC MORPHOLOGY IN BLOOD abnormal Normal [facility] Comment on above: Performed By: #### L [id number], [id number] ####Catalogue Maker: UNA ARCE ([id number])[facility] [place] (SBHLAB)[address] SEGMENTED NEUTROPHILS (10*3/UL) IN BLOOD-CELLAVISION 9.3 10*3/uL High 1.8-7.5 [facility] Comment on above: Performed By: #### L [id number], [id number] ####Catalogue Maker: UNA ARCE ([id number])[facility] [place] (SBHLAB)[address] SEGMENTED NEUTROPHILS/100 LEUKOCYTES-CE 75 % Normal 38-82 [facility] Comment on above: Performed By: #### L [id number], [id number] ####Catalogue Maker: UNA ARCE ([id number])[facility] [place] (SBHLAB)[address] STOMATOCYTES IN BLOOD BY LIGHT MICROSCOPY Slight Abnormal (none) [facility] Comment on above: Performed By: #### L [id number], [id number] ####Catalogue Maker: UNA ARCE ([id number])[facility] [place] (SBHLAB)[address] UNCLASSIFIED CELLS TOTAL PER COUNTED LEUKOCYTES BY MANUAL COUNT Normal [facility] Comment on above: Performed By: #### L [id number], [id number] ####Catalogue Maker: UNA ARCE ([id number])[facility] [place] (SBHLAB)[address] VARIANT LYMPHOCYTES TOTAL PER COUNTED LEUKOCYTES BY MANUAL COUNT Normal [facility] Comment on above: Performed By: #### L [id number], [id number] ####Catalogue Maker: UNA ARCE ([id number])[facility] [place] (SBHLAB)[address] Magnesium [Mass/Vol]on 04-15 Interpretation and review of laboratory results Normal [facility] No Panel Informationon 04-15 Basophils Manual 2 [facility] He alth Eosinophils Manual 1 0 - 1 [facility] Interpretation and review of laboratory results Abnormal [facility] Lymphocytes Manual 10 [facility] Monocytes Manual 13 [facility] alth Neutrophils Manual 77 [facility] OCCULT BLOOD, STOOLon 2024 OCCULT BLOOD, STOOL FECAL OCCULT, STOOL Reference Negative Negative ORDER COMMENTS: Methodology: Immunoassay Normal [facility] Comment on above: Performed By: #### L [id number] ####Catalogue Maker: UNA ARCE ([id number])[facility]ENTER[facility] ESCOTO ([facility] [place] [address] Progress Noteon 04-15-2025 Progress Note Normal [facility] Progress Note Normal [facility] Progress Note Normal [facility] XR Chest Single viewon 04-15 [facility] Radiology Study observation (narrative) Lynette Balderrama alth [id number] 04-14-2025 [id number] Normal [facility] Bacteria identified Anaer cx Nom (Unsp spec)on 04-14-2025 Interpretation and review of laboratory results Normal [facility] CBC W Auto Differential pane l (Bld)on 04-14-2025 Erythrocyte distribution width (RBC) [Ratio] 25.4 % High 11.5 - 15.0 % [facility] Hematocrit (Bld) [Volume fraction] 27.3 % Low 40.0 - 52.0 % [facility] Hemoglobin (Bld) [Mass/Vol] 7.6 g/dL Low 13.0 - 18.0 g/dL [facility] MCH (RBC) [Entitic mass] 23.2 pg Low 26. 0 - 34.0 pg [facility] MCHC (RBC) [Mass/Vol] 27.8 % Low 30.5 - 36.0 % [facility] MCV (RBC) [Entitic vol] 83.5 fL 77.0 - 99.0 fL [facility] Platelet mean volume (Bld) [Entitic vol] 8.9 fL Low 9.0 - 12.7 fL [facility] Platelets (Bld) [#/Vol] 293 10*3/uL 140 - 440 10*3/uL [facility] RBC (Bld) [#/Vol] 3.27 10*6/uL Low 4.40 - 5.9 0 10*6/uL [facility] WBC (Bld) [#/Vol] 12.3 10*3/uL High 3.6 - 10.7 10*3/uL [facility] CBC WITH AUTO DIFFERENTIALon 04-14-2025 Erythrocyte distribution width (RBC) [Ratio] 25.4 % High 11.5-15.0 [facility] Comment on above: Performed By: #### L [id number], [id number] ####Catalogue Maker: UNA ARCE ([id number])[facility] (SBHLAB)[address] Hematocrit (Bld) [Volume fraction] 27.3 % Low 40.0-52.0 [facility] Comment on above: Performed By: #### L [id number], [id number] ####Catalogue Maker: UNA ARCE ([id number])[facility] (SBHLAB)[address] Hemoglobin (Bld) [Mass/Vol] 7.6 g/dL Low 13.0-18.0 [facility] Comment on above: Performed By: #### L [id number], [id number] ####Catalogue Maker: UNA ARCE ([id number])[facility] (SBHLAB)[address] MCH (RBC) [Entitic mass] 23.2 pg Low 26.0-34.0 [facility] Comment on above: Performed By: #### L [id number], [id number] ####Catalogue Maker: UNA ARCE ([id number])[facility] (SBHLAB)[address] MCHC 27.8 % Low 30.5-36.0 [facility] Comment on above: Performed By: #### L [id number], [id number] ####Catalogue Maker: UNA ARCE ([id number])[facility] (SBHLAB)[address] MCV (RBC) [Entitic vol] 83.5 fL Normal 77.0-99.0 S [facility] Comment on above: Performed By: #### L [id number], [id number] ####Catalogue Maker: UNA ARCE ([id number])[facility]ENTERAngel [facility] (SBHLAB)[address] Platelet mean volume (Bld) [Entitic vol] 8.9 fL Low 9.0-12.7 [facility] Comment on above: Performed By: #### L [id number], [id number] ####Catalogue Maker: UNA ARCE ([id number])[facility] (SBHLAB)[address] [place] [address] Platelets (Bld) [#/Vol] 293 10*3/uL Normal 140-440 [facility] Comment on above: Performed By: #### L [id number], [id number] ####Catalogue Maker: UNA ARCE ([id number])[facility] CENTERAngel [place] (SBHLAB)[address] [place] [address] RBC (Bld) [#/Vol] 3.27 10*6/uL Low 4.40-5.90 [facility] Comment on above: Performed By: #### L [id number], [id number] ####Catalogue Maker: UNA ARCE ([id number])[facility] (SBHLAB)[address] [place] [address] WBC (Bld) [#/Vol] 12.3 10*3/uL High 3.6-10.7 [facility] Comment on above: Performed By: #### L [id number], [id number] ####Catalogue Maker: UNA ARCE ([id number])[facility] (SBHLAB)[address] COMPREHENSIVE METABOLIC PANE Anant 04-14-2025 Albumin [Mass/Vol] 2.1 g/dL Low 3.4-4.8 [facility] Comment on above: Performed By: #### L AB103, LAB17 ####Catalogue Maker: UNA ARCE ([id number])[facility] [place] (SBHLAB)[address] ALP [Catalytic activity/Vol] 47 U/L Normal 40-150 [facility] Comment on above: Performed By: #### L AB103, LAB17 ####Catalogue Maker: UNA ARCE ([id number])[facility] [place] (SBHLAB)[address] ALT [Catalytic activity/Vol] U/L Normal <40 [facility] Comment on above: Performed By: #### L AB103, LAB17 ####Catalogue Maker: UNA ARCE ([id number])[facility] [place] (SBHLAB)[address] Anion gap [Moles/Vol] 9 mmol/L Normal 3-13 [facility] Comment on above: Performed By: #### L AB103, LAB17 ####Catalogue Maker: UNA ARCE ([id number])[facility] [place] (SBHLAB)[address] AST [Catalytic activity/Vol] 19 U/L Normal <34 [facility] Comment on above: Performed By: #### L AB103, LAB17 ####Catalogue Maker: UNA ARCE ([id number])[facility] [place] (SBHLAB)[address] Bilirubin [Mass/Vol] 0.6 mg/dL Normal <1.2 [facility] Comment on above: Performed By: #### L AB103, LAB17 ####Catalogue Maker: UNA ARCE ([id number])[facility] [place] (SBHLAB)[address] Calcium [Mass/Vol] 8.1 mg/dL Low 8.8-10.0 [facility] Comment on above: Performed By: #### L AB103, LAB17 ####Catalogue Maker: UNA ARCE ([id number])[facility] [place] (SBHLAB)[address] Chloride [Moles/Vol] 92 mmol/L Low 98-107 [facility] Comment on above: Performed By: #### L AB103, LAB17 ####Catalogue Maker: UNA ARCE ([id number])[facility] [place] (SBHLAB)[address] CO2 [Moles/Vol] 39 mmol/L High 23-31 [facility] Comment on above: Performed By: #### L AB103, LAB17 ####Catalogue Maker: UNA ARCE ([id number])[facility] CENTERAngel [facility] (SBHLAB)[address] Creatinine [Mass/Vol] 1.43 mg/dL High 0.72-1.25 [facility] Comment on above: Performed By: #### L AB103, LAB17 ####Catalogue Maker: UNA ARCE ([id number])[facility]ENTERAngel [facility] (SBHLAB)[address] GLOMERULAR FILTRATION RATE ML/MIN/1.73 SQ M.PREDICTED 46.8 mL/min/1.73m*2 Low >60.0 [facility] Comment on above: Result Comment: Calc ulation based on the Chronic Kidney Disease Epidemiology Collaboration (CKD-EPI) equation refit without adjustment for race Performed By: #### L AB103, LAB17 ####Catalogue Maker: UNA ARCE ([id number])[facility]ENTERAngel [place] (SBHLAB)[address] Glucose [Mass/Vol] 97 mg/dL Normal 82-115 [facility] Comment on above: Performed By: #### L AB103, LAB17 ####Catalogue Maker: UNA ARCE ([id number])[facility] (SBHLAB)[address] Potassium [Moles/Vol] 3.8 mmol/L Normal 3.5-5.1 [facility] Comment on above: Result Comment: Plas ma potassium values may be up to 0.5 mmol/L lower than serum values. Performed By: #### L AB103, LAB17 ####Catalogue Maker: UNA ARCE ([id number])[facility]ENTERA [facility] (SBHLAB)[address] Protein [Mass/Vol] 5.7 g/dL Low 6.4-8.3 [facility] Comment on above: Performed By: #### L AB103, LAB17 ####Catalogue Maker: UNA ARCE ([id number])[facility]A [facility] (SBHLAB)[address] Sodium [Moles/Vol] 140 mmol/L Normal 136-145 [facility] Comment on above: Performed By: #### L AB103, LAB17 ####Catalogue Maker: UNA ARCE ([id number])[facility] (SBHLAB)[address] Urea nitrogen [Mass/Vol] 39 mg/dL High 9-23 [facility] Comment on above: Performed By: #### L AB103, LAB17 ####Catalogue Maker: UNA STAUFFERMELANIE ([id number])[facility] ([facility])[address] Comprehensive metabolic 1998 panelon 04-14-2025 Albumin [Mass/Vol] 2.1 g/dL Low 3.4 - 4.8 g/dL [facility] ALP [Catalytic activity/Vol] 47 U/L 40 - 150 U/L [facility] ALT [Catalytic activity/Vol] U/L NINF - 40 U/L [facility] Anion gap [Moles/Vol] 9 mmol/L 3 - 13 mmol/L [facility] AST [Catalytic activity/Vol] 19 U/L NINF - 34 U/L [facility] Bilirubin [Mass/Vol] 0.6 mg/dL NINF - 1.2 mg/dL [facility] Calcium [Mass/Vol] 8.1 mg/dL Low 8.8 - 10. 0 mg/dL [facility] Chloride [Moles/Vol] 92 mmol/L Low 98 - 10 7 mmol/L [facility] CO2 [Moles/Vol] 39 mmol/L High 23 - 31 mmol/L [facility] Creatinine [Mass/Vol] 1.43 mg/dL High 0.72 - 1.25 mg/dL [facility] GFR/1.73 sq M.predicted (S/P/Bld) [Vol rate/Area] 46.8 mL/min Low - PINF [facility] Glucose [Mass/Vol] 97 mg/dL 82 - 115 mg/dL [facility] Interpretation and review of laboratory results Abnormal [facility] Potassium [Moles/Vol] 3.8 mmol/L 3.5 - 5.1 mmol/L [facility] Protein [Mass/Vol] 5.7 g/dL Low 6.4 - 8.3 g/dL [facility] Sodium [Moles/Vol] 140 mmol/L 136 - 145 mmol/L [facility] Urea nitrogen [Mass/Vol] 39 mg/dL High 9 - 23 mg/d L [facility] Consulton 04-14-2025 Consult Normal [facility] ECG 12-LEADon 04-14-2025 ECG 12-LEAD IMPRESSION: Sinus arrhythmia LEFT ANTERIOR FASCICULAR BLOCK MULTIPLE ATRIAL PREMATURE COMPLEXES Compared to ECG 04/05/2025 15:59:31 No significant changes Electronically Signed On 04-14-2025 07:12:58 EDT by Ronal Maurice Normal [facility] Laboratory - Chemistry and C hemistry - challengeon 04-14-2025 Magnesium [Mass/Vol] 1.9 mg/dL 1.6 - 2 .6 mg/dL [facility] Laboratory - Hematology and Cell countson 04-14-2025 Anisocytosis Ql (Bld) Slight Abnormal (none) [facility] Basophils (Bld) [#/Vol] 0.1 10*3/uL 0.0 - 0.2 10*3/uL [facility] Basophils/100 WBC (Bld) 1 % 0 - 2 % [facility] Eosinophils (Bld) [#/Vol] 0.4 10*3/uL 0.0 - 0.5 10*3/uL [facility] Eosinophils/100 WBC (Bld) 3 % 0 - 6 % [facility] Hypochromia Ql (Bld) Moderate Abnormal (none) [facility] Lymphocytes (Bld) [#/Vol] 0.9 10*3/uL Low 1.0 - 4.3 10*3/uL [facility] Lymphocytes/100 WBC (Bld) 7 % Low 15 - 45 % [facility] Monocytes (Bld) [#/Vol] 1.8 10*3/uL High 0.0 - 0.9 10*3/uL [facility] Monocytes/100 WBC (Bld) 15 % High 5 - 13 % [facility] Neutrophils (Bld) [#/Vol] 9.1 10*3/uL High 1.8 - 7.5 10*3/uL [facility] Poikilocytosis LM Ql (Bld) Slight Abnormal (none) [facility] RBC morphology finding Nom (Bld) abnormal [facility] Segmented neutrophils/100 WBC (Bld) 74 % 38 - 82 % [facility] Stomatocytes LM Ql (Bld) Moderate Abnormal (none) [facility] Variant lymphocytes (Bld) [#/Vol] 0.1 10*3/uL High NINF - 0.0 10*3/uL [facility] Variant lymphocytes/100 WBC (Bld) 1 % High NINF - 0 % [facility] - Microbiology an d Antimicrobial susceptibilityon 04-14-2025 Bacteria identified Anaer cx Nom (Unsp spec) No growth at 5 days [facility] MAGNESIUMon 04-14-2025 Magnesium [Mass/Vol] 1.9 mg/dL Normal 1.6-2.6 [facility] Comment on above: Result Comment: YARELI R COMMENTS:Higher values can be expected in females during menses. Performed By: #### L [id number], [id number] ####Catalogue Maker: UNA ARCE ([id number])[facility] ([facility])[address] [place] [address] MANUAL DIFFERENTIAL (CELLAVI BANDAR)on 04-14-2025 ANISOCYTOSIS PRESENCE IN BLOOD BY LIGHT MICROSCOPY Slight Abnormal (none) [facility] Comment on above: Performed By: #### L [id number], [id number] ####Catalogue Maker: UNA ARCE ([id number])[facility] ([facility])[address] [place] [address] [place] BAND NEUTROPHILS TOTAL PER COUNTED LEUKOCYTES BY MANUAL COUNT [facility] Comment on above: Performed By: #### L [id number], [id number] ####Catalogue Maker: UNA ARCE ([id number])[facility] ([facility])[address] [place] [address] [place] BASOPHILS (10*3/UL) IN BLOOD-CELLAVISION 0.1 10*3/uL Normal 0.0-0.2 [facility] Comment on above: Performed By: #### L [id number], [id number] ####Catalogue Maker: UNA ARCE ([id number])[facility] [place] ([facility])[address] [place] [address] [place] BASOPHILS TOTAL PER COUNTED LEUKOCYTES BY MANUAL COUNT 1 [facility] Comment on above: Performed By: #### L [id number], [id number] ####Catalogue Maker: UNA ARCE ([id number])[facility] [place] ([facility])[address] [place] [address] [place] BASOPHILS/100 LEUKOCYTES IN BLOOD-CELLAVISION 1 % Normal 0-2 [facility] Comment on above: Performed By: #### L [id number], [id number] ####Catalogue Maker: UNA ARCE ([id number])[facility] [place] ([facility])[address] [place] [address] [place] BLASTS TOTAL PER COUNTED LEUKOCYTES BY MANUAL COUNT [facility] Comment on above: Performed By: #### L [id number], [id number] ####Catalogue Maker: UNA ARCE ([id number])[facility] [place] ([facility])[address] [place] [address] [place] EOSINOPHILS (10*3/UL) IN BLOOD-CELLAVISION 0.4 10*3/uL Normal 0.0-0.5 [facility] Comment on above: Performed By: #### L [id number], [id number] ####Catalogue Maker: UNA ARCE ([id number])[facility] [place] ([facility])[address] [place] [address] [place] EOSINOPHILS TOTAL PER COUNTED LEUKOCYTES BY MANUAL COUNT 3 High 0-1 [facility] Comment on above: Performed By: #### L [id number], [id number] ####Catalogue Maker: UNA ARCE ([id number])[facility] [place] ([facility])[address] [place] [address] [place] EOSINOPHILS/100 LEUKOCYTES IN BLOOD-CELLAVISION 3 % Normal 0-6 [facility] Comment on above: Performed By: #### L [id number], [id number] ####Catalogue Maker: UNA ARCE ([id number])[facility] [place] ([facility])[address] [place] [address] [place] HYPOCHROMIA (PRESENCE) IN BLOOD BY LIGHT MICROSCOPY Moderate Abnormal (none) [facility] Comment on above: Performed By: #### L [id number], [id number] ####Catalogue Maker: UNA ARCE ([id number])[facility] [place] ([facility])[address] LYMPHOCYTE VARIANT/100 LEUKOCYTES IN BLOOD- CELLAVISION 1 % High <=0 [facility] Comment on above: Performed By: #### L [id number], [id number] ####Catalogue Maker: UNA ARCE ([id number])[facility] [place] ([facility])[address] [place] [address] [place] LYMPHOCYTES (10*3/UL) IN BLOOD-CELLAVISION 0.9 10*3/uL Low 1.0-4.3 [facility] Comment on above: Performed By: #### L [id number], [id number] ####Catalogue Maker: UNA ARCE ([id number])[facility] [place] ([facility])[address] [place] [address] [place] LYMPHOCYTES TOTAL PER COUNTED LEUKOCYTES BY MANUAL COUNT 7 Normal [facility] Comment on above: Performed By: #### L [id number], [id number] ####Catalogue Maker: UNA ARCE ([id number])[facility] [place] ([facility])[address] [place] [address] [place] LYMPHOCYTES/100 LEUKOCYTES IN BLOOD-CELLAVISION 7 % Low 15-45 [facility] Comment on above: Performed By: #### L [id number], [id number] ####Catalogue Maker: UNA ARCE ([id number])[facility] [place] ([facility])[address] [place] [address] [place] METAMYELOCYTES TOTAL PER COUNTED LEUKOCYTES BY MANUAL COUNT [facility] Comment on above: Performed By: #### L [id number], [id number] ####Catalogue Maker: UNA MOHRCER ([id number])[facility] [place] ([facility])[address] [place] [address] [place] MONOCYTES (10*3/UL) IN BLOOD-CELLAVISION 1.8 10*3/uL High 0.0-0.9 [facility] Comment on above: Performed By: #### L [id number], [id number] ####Catalogue Maker: UNA ARCE ([id number])[facility] [place] ([facility])[address] [place] [address] [place] MONOCYTES TOTAL PER COUNTED LEUKOCYTES BY MANUAL COUNT 15 [facility] Comment on above: Performed By: #### L [id number], [id number] ####Catalogue Maker: UNA ARCE ([id number])[facility] [place] ([facility])[address] [place] [address] [place] MONOCYTES/100 LEUKOCYTES IN BLOOD-LUCIANA 15 % High 5-13 [facility] Comment on above: Performed By: #### L [id number], [id number] ####Catalogue Maker: UNA MOHRCER ([id number])[facility] [place] ([facility])[address] [place] [address] [place] MYELOCYTES COUNTED BY MANUAL COUNT [facility] Comment on above: Performed By: #### L [id number], [id number] ####Catalogue Maker: UNA ARCE ([id number])[facility] [place] ([facility])[address] [place] [address] [place] NEUTROPHILS TOTAL PER COUNTED LEUKOCYTES BY MANUAL COUNT 75 Normal [facility] Comment on above: Performed By: #### L [id number], [id number] ####Catalogue Maker: UNA ARCE ([id number])[facility] [place] ([facility])[address] POIKILOCYTOSIS (PRESENCE) IN BLOOD BY LIGHT MICROSCOPY Slight Abnormal (none) [facility] Comment on above: Performed By: #### L [id number], [id number] ####Catalogue Maker: UNA ARCE ([id number])[facility] [place] ([facility])[address] PROMYELOCYTES TOTAL PER COUNTED LEUKOCYTES BY MANUAL COUNT Normal [facility] Comment on above: Performed By: #### L [id number], [id number] ####Catalogue Maker: UNA ARCE ([id number])[facility] [place] ([facility])[address] RBC MORPHOLOGY IN BLOOD abnormal Normal [facility] Comment on above: Performed By: #### L [id number], [id number] ####Catalogue Maker: UNA ARCE ([id number])[facility] [place] ([facility])[address] SEGMENTED NEUTROPHILS (10*3/UL) IN BLOOD-CELLAVISION 9.1 10*3/uL High 1.8-7.5 [facility] Comment on above: Performed By: #### L [id number], [id number] ####Catalogue Maker: UNA ARCE ([id number])[facility] [place] ([facility])[address] [place] [address] [place] SEGMENTED NEUTROPHILS/100 LEUKOCYTES-CE 74 % Normal 38-82 [facility] Comment on above: Performed By: #### L [id number], [id number] ####Catalogue Maker: UNA ARCE ([id number])[facility] [place] ([facility])[address] [place] [address] [place] STOMATOCYTES IN BLOOD BY LIGHT MICROSCOPY Moderate Abnormal (none) [facility] Comment on above: Performed By: #### L [id number], [id number] ####Catalogue Maker: UNA ARCE ([id number])[facility] ([facility])[address] UNCLASSIFIED CELLS TOTAL PER COUNTED LEUKOCYTES BY MANUAL COUNT Normal [facility] Comment on above: Performed By: #### L [id number], [id number] ####Catalogue Maker: UNA ARCE ([id number])[facility] ([facility])[address] VARIANT LYMPHOCYTES (10*3/UL) IN BLOOD-CELLAVISION 0.1 10*3/uL High <=0.0 [facility] Comment on above: Performed By: #### L [id number], [id number] ####Catalogue Maker: UNA ARCE ([id number])[facility] ([facility])[address] VARIANT LYMPHOCYTES TOTAL PER COUNTED LEUKOCYTES BY MANUAL COUNT 1 Normal [facility] Comment on above: Performed By: #### L [id number], [id number] ####Catalogue Maker: UNA ARCE ([id number])[facility])[address] [place] [address] [place] Magnesium [Mass/Vol]on 04-14 Interpretation and review of laboratory results Normal [facility] No Panel Informationon 04-14 [facility] Radiology Study observation (narrative) [facility] ander Case Report [facility] Case Screening Location [facility], [address] [place] [address]; CLIA: [id number]; Joint Commission: HCO [id number]; CAP: [id number] [facility] Comment w0mdpLSaSWDqeHTpNCDg M GlxyrUhIILexJYbR0Yuej icYLajRT5aRH2drMevxIO qpEReGJLyYjDis1bfr969 oIVrp0inCIFQYRgcCAFWK Gw3zRowN46tu9Z5RspgG2 9tvOTkEJE2XBHgXRWtzLC oZFLuBAY6DHPvaJDrH9tz PNShIG1rzslbTInsOJcjP UWdtLK2RPPphSVdO0IsYA DqYJuaOXIojgo5ZhGtJa2 vdGVyeTcyMFxwYXJkXHBs YWluXGZzMjAgUGxlYXNlI WUyQTUgl3ArU9czfOBfTI NmADZxv9EeYPA8vD1od5s 6LSZoFQAeqOFeERcXPiR8 XKOqQSUmdRBdBqf4GIZ7s HXvSXOyCWp0oB7oWGcfj0 9cr2EtFumnUXC8 [facility] y3kigCApYYCduJDfJkGr M UBaUYBft3akUMAxtKOfTr EwMzNcZnRuYmpcdWMxXGR zGsRno6tgc665cMKym8bq HZOdYdN7mAJcPXSiT34bT XYJV604BBCtFFtjs6xai4 CnOTJaiWRab4F3KSNYTDf zWBYBOCn1iFptQ37dg9O5 OfnrZ3irCNZwYCWyL8FnO H1rGIZnGia2TKC9OVX7XF HxLOSlP6KdHG5fJHTdwEG hRPe4t7occMenVTHjYAK3 d9ksGOeluvIhGB1zyu7jh Jk0r3aioiQtDWDoZNOvaO SUMMBiD5NyvIohVb6mbYl 8jGmwXakeUSD6Pmj1EI6f qs82hkn2fPxqJHKyhbthI yU0IPvkYHOnknrnMTa0CG lcFNYguRN5EEWpwKKrC9V vZJHiNV1pxkn7VKZ0YJvk HWDlKtK8DTGhlHYoXCOnh SywLEipr429IIN4KcBmPH 6lH6Xua4Z1yH1svJDoYXV fuVAqSfUlJBIiiz7vwIPi NOekv1NqHMP3wnA5eBFcu WHkHDVmQN03Ydxfz4NjBr vaTDF2VRDtfeHpg4Zco6i cKyQphwLgB7tkB9TzZZFx ZTIxQPJfCgXpibHoe1Sws 9ChzRLkvZb3v9qzBAGgQN CmyCped9ejGTF9ZRFoL6W 7aOGrt3oiDZibQYTchFD6 bcP9FSSazFQaF2DylI9uS QIjUO3ekyf3p1ztAFN4FN vtRFPeLdN4frK4CIYgzKS eXHEeoIrmXKueq223FLC3 EtEkHYQgc2UqM0CdhWqpB 09uzNumV52vBJVkrGnviA 6tgYzutA9qSpFhCoFrYGt xbFxwbGFpblxmMVxmczE2 JZezekzhQLWqRHdmN9umN fGySPGwzGpsCMblp0QgGC AyIWBwYZTzHIjjH0zgpJ4 hmjaiSMyeQHDmmCsnq1ud DkIrnTC4DP9affXpGNAad VatdpW3ieBhwNexbK3iwP 9wxVrlxO4meOAadUT1vuy sIGluIHNpdHUgaHlicmlk eSbbrCvyreetaH7mNTY0t PTtFSG8rAVvVYGyTRGxVB KrsK97oo1dsDOtwbBiK5J wH2EwiGMkzVwqRttajNSe tAMgPs9moIMoJS1oRDHka FZqO0EoPG5gCCFffqpyIK IgVGhlIHVzZSBvZiBvbmU rz2WqiS4gGBTmQJWqBJ44 omMlloF4vNBfBYFhmtMxl GVzdHMgaXMgcmVndWxhdG RxFKZoBAXyOEAnQDf1gMQ tq5CzK6qncGPaszAlT7Cz sNDxOWBXJU5dUEvan5Szc IUbgMIgd9RcVKXlMZBcmC 2lTBOvEW9qXDBrQEhbYSZ snvUydx4izoWrZKGuLSWd W3QbsgozlVqycfAkLUKoh e1ozzAcEYQ7LSFsPAVymF yszSXerALsSRCmnnV3i1E lFRKui8RiW8RtgTEbTUEd zIJyYGP8y0MihO3gXZeyg GPfKYEoJE3qjUJpXWQxHV NsZWFyZWQgYnkgdGhlIFV GWQQnr0AaAK6iMGValMsv UHPapU7ob4QtEZHgf41hR EZEQSkuIFRoZSBGREEgaG FzIGRldGVybWluZWQgdGh dkOEqmXBhIQWoUYYcOA2s VEKvunBrfUEgi0YbpJYeq vSuh4KdubSxFCQmGEP8Bh BccGFyXHBhciBBbGwgaW1 pwE3oh1GltG9mXBahifJx uNEdLe5hrWXoQF4pJTRne mFmZmluIGVtYmVkZGVkIH Ful9E6ZD6eVECmss3frnx yiSCjdE6unOAghqDkPW5l UR8rD2F2iSXzMSCrpzXpx 0yoREx1gWDiXOWvmYLglV IrSfjpQOD7QXJuYKB3gbV fmmWbEJZntBhvaFI2eQCc JSLxMPRvZJLrZM66L2Ogr 5QaY7pbVX20MXIzFRAzMU OroyBve1gbDCChb8bdKZO odJZkC3PuJQObtATxxvvz TqKkCTS2PVUjCVK5rESkV VVhW9KywKWuuZZdmO25VV 7nfJM4BD5tXCA1GIxogA9 qQjIQxB05fd7yuMW0b8Wl IG6vD0JqMIFvo5Y9aoLdF REwVB4szMEeHCUeXIRsyM lkYXRlZCBvbiBkZWNhbGN jKwwyMAR7oTHfvQAtIgPT PVY7oHGdMAHhf7DsTQNnD ZEzipTmvyKnLYAbPPZ4dO TiATNwrFUhh67pL3f1BC7 xoLvgSBVvxCSfDHDsr2Wr aLKfcZg5aWUnYrQhXDedF JTfNBvakUn4yIP5YN3kWH IwX8QfB3vgyVFtGDLqBYU oqDPbyc0zmFVvfF== [facility] g7vniVBfCYImkBSEUJJl M OTcVU8igTmobZy1fIsyFV KvrjZ3uJCaNGprb9omHMJ 8a3uogxIRWrdgRXSxUT3j THmuGJBfBH3sSqGiZLQuJ mYxXHBhcGVydzEyMjQwXH EdvVExfYY5XVQyHE7algv iHSgcJIwiGDUyrpI7KTFw eMFyF5IlPDMwVT2pupxgM CL3ZKQCRehuPo1bxAMeaI ANCntcZjFcZmNoYXJzZXQ pXASxo1vwddOWiyxihIo8 EKd1GYNdRWKsfMUqm6L2I Nddo0qju1HbL0Hid1RyCL z1xM3ZLjguV50et5X8Kkh 2VHAdLLd1ZQnfFPPpVHOs Sbo8DVf3X2mzDJMbFLmeT CZlONbhaXIaLOq3UHzom1 JorIWqISk7HAphFILoY4Z pM7KcJGkfSoKmIMgrCVPb OURfJLsoIQRyT2TLTEAuC wY3MdB2XFGdNEk0ZZsbSt PZTII8RGs5QqM8OKp4SPI lCI8sODtxnHIuKHspVsmz SSxcX714ZSjeWYChE4UnL 3QgXFxzZyBcXGlkIDUxMD SmHFuwPBAdQ2WVYXVjHvG 6XeX3TQBnSZk9CTsrF1LO GFOmWBN7PNP7IjCcIaB0X Jy9TJWQUe4bMOR0MKO8ET tiJSZ8ASUcGXusieesTPx 0IDIgXFxzcyAzIFxcZmwg QCddT57myAZyVAUQDkhcx GFpblxlcGljTmVzdERvYz MkUCornAPjkZCzWA2WBKi 0cmNoXGNmMVxmczIwIEEg XFYRwTI0fkDlKHVjxyj3s MdjIncvaFM6JLMdOPEzUB vwCYKdTJs2FQKxnEenRVU sw4KsI5S3OPDwCJitf8cc QNSmZEmyg2XtMIrHIEQDA P9OAD4mhVW8TNdWIJEMX1 bVuRDtMSRtZ6rzvGU2v7o hgOSup2r4HZqbZBV3nNKn y4QvmQjkOktghNA1CAcdK tmneU4bgKVTMOGIZfoOTb wxemEiHS8TEQASMC0XqOA dUUMeV3wyvIZ3k6koyQHl g0c3HZspQWY4aKakhKEbg lxsdHJjaFxmczIwICBccH KprCPstSoiMwnayKB4DRo jBzxhvG7zuTOTSJFKThaU JzklrsFsZS9VRVTNThRTL B51ERU8RTN5jQZ4Zy59UH GqSEWjdQRdTQeiT716e0B jhangp5cdpBPpNYqkRsbt kQDhzbO1EOuPYQEVUOpOB hTfUQ7bLPqQE8CMQjT3LU H0DVP1rFT8Cy83CEAsNBT elSUvYUvnF816BFVxLAgf FDb1rtTxFAFhTwNaYYUci XesVFSkE4SnjoOaCAjvzf 94MRW1u0hexQDoEVclUhe lsZPrsyF0ATbVUWIOWBjE DoEfIA5vZNqXR8OVQIrPQ ecjHZzwCkN5N4xtfIqaGj ukglQqvSOuSjQPyB7zbiI tkKdsZlyvaNI1SZfsCpuv rB1syDDUFFCOWprQKzaob uOoWQ1UPVOZYL9BlSZzOG UwHOwbyMF3l4tfvXCzc8f 6RUrcXSV0ePibgSHcuszr dHOkkObeztVhTB6pZEXua iANClxiXGNmMiBNYXRlcm hgtIYoUYSzhALzTEZ7SVY aPJPrPEOfEPNzcP7XfzIs IGFuZCAxIENlbGwgQmxvY 9cghfqnkEXeYR7ETJXgjn ANClxmMlxmczIyXHBhciA DIuzpSLToNZGkvKQQd9Qo BXDWUtb7XE8ALUZsSIIcl BHHFKP2ES8iRBbaWEFsP3 KxD2IuojD6v1amqXcoy9I jdBAqCX0qjDIjXT4GKFLh xsNhWRdytAqvkP5tPEo0 [facility] Pathologist Interpretation Location [facility], [address] [place] [id number]; CLIA: [id number]; Joint Commission: HCO [id number]; CAP: [id number] [facility] Pathology report final diagnosis Narrative v8vpuLMtAKIceFKyNSRsB SymxiYwNLAkpYCnM5Yzpw olLAxuIH7zRK7uqQtmpSX cuUPbPHDiQcLab8uzs315 vKVaz4xkKHXBHHvbGVDMS Zg3kWgbD62oi6H9SgwvC0 ofDFA7AKhynlZnuln1FYL blQQ3UUy2FRAulGTfhfWm QjGzOUEmjEIcqSY6VJJgG P3zqbcyLBmcVBmpSOWsuf Y1RZCjvWLaN0FzNLPfBY9 uofhnUOQ0VBcfWIWkSMN2 XhWgXRUcu2Etytq0RcAtc GFyZFxwbGFpblxmczIwXG NmMSBBICAtIFBsZXVyYWw hA9X1xXH9XPXXjEunjHKw LEOiMXtgAxu9aJLuORV0r V8ub7a8GxppGhJrJGMsxM EcLX7PWE1KIYsBYaMHCBL DRUxMUyBJREVOVElGSUVE TftsDYImNySAD2GYJzFhV 5IFZONVUUWCC0FFXxbuMJ OyDV3rdAGnmWH3eL7dEJF yZXNlbnQuIFxwYXJ9 [facility] CV EPIPHANY [facility] Atypical Lymphocytes Manual 1 [facility] Basophils Manual 1 [facility] Eosinophils Manual 3 High 0 - 1 [facility] Interpretation and review of laboratory results Abnormal [facility] Lymphocytes Manual 7 [facility] Monocytes Manual 15 [facility] Neutrophils Manual 75 [facility] No Panel InformationOrdered By: Marianna Francois on 04-14-2025 [facility] Work Phone: No Panel InformationOrdered By: Danyel Platt on 04-14-2025 Case Report [facility] Work Phone: Case Screening Location [facility], [address] [place] [address]; CLIA: [id number]; Joint Commission: HCO [id number]; CAP: [id number] [facility] Work Phone: Comment s3xoiDKcXLLwmTDfNOCd M ScwhoSnPXNilFKuM1Jlue dmMKdnXM8uYS5owWxsbFW ynEMwNPCiYzQdb4avx228 bGKan0icWAHBFQifKVXNX Mk4jXeoV92gp6V7OtbaL6 0clMYkLVS7SBRmDKIqqOI sVUXzTEL4IKFtpWCkT8dc SZWoEW2jvuxmCAvpZXygI KNrhKT6GRBbhBGxI1AjRE JfRFczKGPtjbp9MsJxBu8 vdGVyeTcyMFxwYXJkXHBs ERwqDBUoKgVmMO7jiQ2dg AtgaL1nzPUqbXT4yuexCB butAfkL97ypQFknQI1MRJ YJwFjidMpQ8XkadN4wX5m biBoaWdobGlnaHQgbWVzb 4TtHCikEGgeV1PcrWDdXM BCRVIgRVAgNCwgVFRGLTE qFNMJLXmsRT8zIJJXIhXh HFUsAD2iE1S0pIRuHfLiH 2FkFqIrsTsbjHjpJ0v6eq RmdO0hpv40icBeTKZtq5Y uSBjsoi8hwXTxmA== [facility] Work Phone: Disclaimer e4krtZZeBTByuCNpCwZc M GVoNNVbi5fnMVTduLEeCa EwMzNcZnRuYmpcdWMxXGR pUqKzz3mvk402cLSwx0ty BYNvPuM6jEVkTMEkX82lM GPYL206KCOpLQiun8slf1 ItLYZjlIVob5P6KXZXAHd aEGJNHJu5sZpoY02iu9J9 NeojQ8mwEMOmDSRbZ5CnA C5mSEBgHio5XIW1SHP6RL EkUTSnC2QjXB1nLEOltVX fTNm5h7qigKxoTWHmZTS4 u9bjJKslevEwBN7aqh7ko Xg4t5gogoYrZEBuECNbhG CIZGDzD5ZvuVjwFz1xtPs 7tMvkIlzlGIQ2Kxc6NC3j mb78sph3nXpxTSBpvjphK nW7FRywBVSgrxxxAPy1BB qbVPCfaTJ8JWXujXWtY4R pMVOlAF3cisk7NRP5PAsu XBZvIsU1NFOmyDQyPKAjl WecXNqer189WRY4TyNdKH 9yE4Les3W2zM9gmILlYDH zuQFaOrCzPFVrsc5tsEBg YZpom6VwHHB1aiR3fOPzo BAjDIMtTE05Xkhyi7FkVc kkRRK4JWDbtoHet7Nzz0f mXiUwcsKxU7iwR7BdRQRy JEFyGWIgZvEivqYtg1Ccl 6WoaQNyjQf3t6jgINRgOD FjhGevn5ngTQM3HTKfC8Y 4iTLvc2yjYGazQEVdnYM1 umZ8TITeaBHnH9NenK5cR JKxIN5djpq1l0drLBC9MB avVNYfYpJ7vjU7ICPizWL vOTUufSqvJKaib812IUR3 JpKpDSNkr1FaF5IfwPhuM 66flKxiS09rWIQpoRzouX 2kiRieaO8tYiWcWlPpAOx xbFxwbGFpblxmMVxmczE2 KSojxedrPMRlWVymK3beO yExHCJxgGlbAIzrs4AjMI QjQLEsCGAzLOdiN3igfR6 ztjkxPCfvTNWdmFmyd7qd FrYguGR7HE1mpeZdSUHns WiqhwZ9dqPlcQrfdU2jmA 2hdFipfO9tuFRdvTM5taf sIGluIHNpdHUgaHlicmlk vNsjoYclvtndjW9rKJX7v GYwZZZ6nEMlGCKlWFOdSY GstP02uh3ttXHndyAjL5L lJ4HmhURjxHnkWlywoSJq vIKbTr1ymAVcCS2kOGYkw YWhJ9QbSR8fORWnxkwqOB IgVGhlIHVzZSBvZiBvbmU pt3PkwQ0rNAVyFIZsPE71 wcDqbdQ9tDRbKMYpwzXfv GVzdHMgaXMgcmVndWxhdG YjPSQiCBOeCSWjVZt8nPK ro5KdZ3lhoRPzhqDdF1Ub xYAjQQSOUF8fKCtne1Shm MVabZPew8NhGPWpIMNthJ 8cDAOkYZ6qHOFnSFzzWNN ieaRmkf7nnlQyBBChMRJt V0FfphwhwRarjcVuHHDoi y8irpWzYPF4SZSrAZNfcC pooPCrsBCmMXXjyhO1c2X gWZXnx5BqP3StnZBgDQDe rADjQAN2m3PtxW9kIUudt NVwEXWoGX0peUWyHIVtQC NsZWFyZWQgYnkgdGhlIFV WGMIba3RdQQ3nJNYcyMvu SZBhlY7bb2BqUCUbc72kZ EZEQSkuIFRoZSBGREEgaG FzIGRldGVybWluZWQgdGh khIQeaMKsUBTmIOWvXT9x PKJvmnMmfGIxs8GfsLRsh yLqk3EduuPoZGExRSY7Ql BccGFyXHBhciBBbGwgaW1 opG9tm4KwwG5cLGaxbaHd wYIvNb2mmRFhES3dKRLgy mFmZmluIGVtYmVkZGVkIH Ato6E9BR0iRHWauy6gddv brKSesL1iuCKnkcXbPK8c LV2aG3S8bRHvKRSglwXqk 0fuSOt8tLZwMZLhdFAvtY IdZxonVDC2DIRrRPT6ifA xrvPmRNHafXrzzOJ0rBAw RQAtQJYxECVhUS77Z9Wns 3UrV1lhTK18KXUxZZLnJG UwfoUrj5bnHUUrv6uzMRU ocLXfQ1ExSQMvpQKommmb XfAlVEW9ZKVhNAW1tYFzE WVtV2RieBJrgUZllG71VH 2juKO2CA5eHEZ2FRqzlK7 tAbIZcF93ue1rdMP0h5Zv IE9lH7WiQFPug4F1iyCkK XTaYU2grQWrVVGbFXHvfN lkYXRlZCBvbiBkZWNhbGN wFjqxQEW2wLBacKWqLmFS MRI9wUOtWIBiy6GcXCYkX OYxxfIbndFtVJJoSQN2pM HfXTKkdXEqp00sX1c8NI0 akVffJENtdYAxHDWor5Er kJGxqYy9yBKyPcVaRVdvR CZrRFeknTe2kDA4HL1mSR SjO3PoK7slcGJxIOFqZVJ yvUQajr1xxLBfmI== [employer] Phone: Gross Description k5awjFIpHCCnyAJNVAYo M RUpLD1lrVhjzUa2zFzhUK XqvbZ0mGRbFNudl8djQWM 7q0mnwcRSJrxlIOWjBE3r UJmuTVDbXN8jNeZvCBYoV mYxXHBhcGVydzEyMjQwXH QkfOXpxKC8GUSnTZ9qtqx lKLcoADbdOOWpqcW3NAHq gQFjB7RjEDDhOZ3pyjweO KA9FHYQRyjbIc2njNVrbP ANCntcZjFcZmNoYXJzZXQ iJKIpx5plmpEMerdxzZa8 PBc9INZtWVPwmADhr0G9P Mwhy9tad1UkA1Plv6UvAD n7vW9RLtmoQ33kw4G2Qii 6DLMpPCr7CMrfILBtBNFb Pbz0SXg5U5zkFVHsMVfiS SDlPPeesICtGIz9FJjgf3 KalLHvHKa6BIimPTYiC4L kZ0MiFLebUgKwMRtjUQUx TORyDLtsLDRbC9OIAKSoH fB5IVr8ITZgSDb1QWilSa DHFCW8OSG4QgB2YTd6CCF xJJ6iBEauuGGsCUcrRfno MNggT348NAsnWDOrM8ThV 3QgXFxzZyBcXGlkIDUxMD YoCVnkFHHyM5GFLPNvLeV 8PTc6GKMeAHt1ASacE9NT BKDrSIG9RUQ2VxY3DzL5V Yo6LVEQLz5nZWN5Kgc3Aq d4FPN9JSPmRCsonahjALr 0IDIgXFxzcyAzIFxcZmwg UTkaN36dkFMzGAMXXsgzk GFpblxlcGljTmVzdERvYz NqCMsczUWvgBNfGM1PTDz 0cmNoXGNmMVxmczIwIEEg XDSDaBZ8czGuCIDxgzn6u JdeRTUjxOyoC7GmLMGwVG BhciANCjEwMDAgbUwgXHB ry0ApF8N4NFXhBGqhl3xv IKVgIOpth7FpDXeAXDHMQ Z6OHY9mdAH5YKfAWYQLB2 cWsPCeWHQrV9oryON8j7b gdKUqj7i4KUerXHN6tNHz m9XgeZohEeurxCH3PQygR kbedG8wqJSKNCBQQjjXSb wkecQvNF0QBTKBMZ5JqWB iXDXsG6wtnZD5f3dkrPSo z8m4WQcrPOH0bWaliQGgq lxsdHJjaFxmczIwICBccH CpvDUwoDzvVodndMT5BJu vJxdjnI6hnNUWVJOFJymI NfqmccQkEI7ZTMRLAxKCU C40HPM3FUQ1wHD7Fl44CS PhQZIiuKUeUZmwY571cPG hiX29q5dqrMWwWTvpWkzd pOMjhmX5ZSaFAHCEAKlTU eLcNC8sFHpQF0KQHtV2RR O1UFH0gLC8Ny00RKQsPAH ozVIjNBbvS207DDZcVRvr TRd8npChZLNqZiGnPTEfb TiuSPAxR9SvfoOhBXenty 86DGJ1h1tmmSCaQPptRbl plLSthxY9XXxYRUWCRGtG QuEyLB9bANqGQ7KUIJcNH lgwRCaqRiS6J3zvdYhoBd iultMyyEIbItRHhW3tssX rjCnsLyewyLT8PRwlSttg oZ7ynCNOXOZROogKQgshj wOjCW8RPBDJMM1EhVBaEZ IoQAlldXJ7y6jdiVXae9j 0OLupCQN8xMauzFWozvix mKCztDeisiZsPA4pINMyh iANClxiXGNmMiBNYXRlcm yrpLOhENRhvOPoIHZ5SCJ yYPNuYGOeMMPduY5RorFy IGFuZCAxIENlbGwgQmxvY 5vhhvtpnYRcIN1WTKKcse ANClxmMlxmczIyXHBhciA IKshzZSCiBGOgcFEBp6Rk DPAOGvj6PO9LGHKyBHEfo TJRNUD5XM2rPGkrLSJjW4 MeZ7YlvcE9y0qosPggg1Q irZMbCJ8exMPnQI6UDIRp ayYaNEzyqDesfP0zMWi7 [employer] Phone: Pathologist Interpretation Location [facility], [address] [place] [id number]; CLIA: [id number]; Joint Commission: [id number] [id number]; CAP: [id number] [facility] [employer] Phone: Pathology report final diagnosis Narrative a0sylYQzBPPynJWwOKVcM DgbxnSrOOWquSQuB3Gqqq veVXyqEZ8gPD0dcLqxyPS blUHoZSOgXwQdt3rfq862 bNTbv0rgWPLYTUyhCPASA Mf1jUcaN87kw9K4IbqdR8 zoCXK2EMpczbFuxau7IBT jaFY4YJu2DTBmmXUucbKq HaCbMIVusTDniYI8MCPiL G6fktbeUFsoSXbeYCNvyp A3ZTZntMXwD8ZiBUOrBN2 uawylAEL1AIxkPSEdOAF3 QtQpEHAog1Xqioa8IoKpc GFyZFxwbGFpblxmczIwXG NmMSBBICAtIFBsZXVyYWw uQ9X6tRP1XCPLGYE0TH0u Ce3wyCCXuHTaWYddB0u6p 6apM6i9DHTfICEtXLloPO EwMi5dMYCDODzMJF0KERH FNSjQRLqUTK9DINRNDEKn XHBhclxwYXJ9 [facility] Work Phone: [employer] Work Phone: No Panel InformationOrdered By: Ronal Maurice on 04-14-2025 P Tappan 44 degrees [facility] Work Phone: CT Interval 134 ms [facility] Work Phone: QRS [place]app[place] -35 degrees [facility] Work Phone: QRSD Interval 117 ms [facility] [employer] Work Phone: QT Interval 390 ms [facility] Work Phone: QTC Interval 450 ms [facility] Work Phone: T Wave [place] 78 degrees [facility] Work Phone: [facility] Work Phone: Nursing Noteon 04-14-2025 Nursing Note Normal [facility] Progress Noteon 04-14-2025 Progress Note Normal [facility] Progress Note Normal [facility] Progress Note Normal [facility] Progress Note Normal [facility] Progress Note Normal [facility] Progress Note Normal [facility] Progress Note Normal [facility] US GUIDED THORACENTESISon US GUIDED THORACENTESIS Normal [facility] Vital signsOrdered By: Jake Maurice on 04-14-2025 Heart rate 80 /min bpm [facility] [employer] Phone: XR Chest Single viewon 04-14 [facility] XR Chest Single viewOrdered By: Anthony Christian on 04-14-2025 [facility] [employer] Phone: [phone] 04-13-2025 [phone] Normal [facility] BLOOD GAS ARTERIALon 025 AMOUNT OF OXYGEN 2 lpm Normal [facility] Comment on above: Order Comment: Pleas e draw tomorrow AM after using BiPAP. Thank you! Performed By: #### L [id number] ####Catalogue Maker: UNA ARCE ([id number])[facility] ([facility])[address] [place] [address] Base excess Calc (Bld) [Moles/Vol] 11.7 mmol/L High -3.0-3.0 [facility] Comment on above: Order Comment: Pleas e draw tomorrow AM after using BiPAP. Thank you! Performed By: #### L [id number] ####Catalogue Maker: UNA ARCE ([id number])[facility] ([facility])[address] [place] [address] [place] CO2 [Moles/Vol] 39.9 mmol/L High 22.0-28.0 [facility] Comment on above: Order Comment: Pleas e draw tomorrow AM after using BiPAP. Thank you! Performed By: #### L [id number] ####Catalogue Maker: UNA ARCE ([id number])[facility] ([facility])[address] HCO3 (Bld) [Moles/Vol] 38.1 mmol/L High 21.0-27.0 [facility] Comment on above: Order Comment: Pleas e draw tomorrow AM after using BiPAP. Thank you! Performed By: #### L [id number] ####Catalogue Maker: UNA ARCE ([id number])[facility] CENTERAngel [facility]GU[facility]OSPITALMarisol ([facility])[address] Hemoglobin (Bld) [Mass/Vol] 11.3 g/dL Low Screen only [facility] Comment on above: Order Comment: Pleas e draw tomorrow AM after using BiPAP. Thank you! Performed By: #### L AB76 ####Catalogue Maker: UNA ARCE ([id number])[facility]ENTERAngel [facility]ENTERMarisol ([facility])[address] [place] [address] OXYGEN SATURATION (%) IN ARTERIAL BLOOD 95.1 % Low 97.0-99.0 [facility] Comment on above: Order Comment: Pleas e draw tomorrow AM after using BiPAP. Thank you! Performed By: #### L AB76 ####Catalogue Maker: UNA ARCE ([id number])[facility]ENTERAngel [place] ([facility])[address] [place] [address] PCO2 ARTERIAL 59.2 mm Hg High 35.0-48.0 [facility] Comment on above: Order Comment: Pleas e draw tomorrow AM after using BiPAP. Thank you! Performed By: #### L AB76 ####Catalogue Maker: UNA ARCE ([id number])[facility]ENTERAngel [place] ([facility])[address] PH ARTERIAL 7.426 Normal 7.350-7.450 [facility] Comment on above: Order Comment: Pleas e draw tomorrow AM after using BiPAP. Thank you! Performed By: #### L AB76 ####Catalogue Maker: UNA ARCE ([id number])[facility]ENTERAngel [place] ([facility])[address] PO2 ARTERIAL 79.2 mm Hg Low 83.0-108.0 [facility] Comment on above: Order Comment: Pleas e draw tomorrow AM after using BiPAP. Thank you! Performed By: #### L AB76 ####Catalogue Maker: UNA MOHRCER ([id number])[facility] ([facility])[address] SOURCE OF OXYGEN Nasal Cannula (LPM) Normal [facility] Comment on above: Order Comment: Pleas e draw tomorrow AM after using BiPAP. Thank you! Performed By: #### L AB76 ####Catalogue Maker: UNA ARCE ([id number])[facility] ([facility])[address] Bacteria identified Aer cx N om (Unsp spec)on 04-13-2025 Gram Stain Result Rare Polymorphonuclear leukocytes per low power field [facility] Gram Stain Result No organisms seen [facility] Bacteria identified Aer cx N om (Unsp spec)Ordered By: Bianca Daigle on 04-13-2025 Gram Stain Result Moderate Polymorphonuclear leukocytes per low power field [facility] Gram Stain Result No organisms seen [facility] CBC W Auto Differential pane l (Bld)on 04-13-2025 Erythrocyte distribution width (RBC) [Ratio] 25 % High 11.5 - 15.0 % [facility] Hematocrit (Bld) [Volume fraction] 28.2 % Low 40.0 - 52.0 % [facility] Hemoglobin (Bld) [Mass/Vol] 7.8 g/dL Low 13.0 - 18.0 g/dL [facility] Interpretation and review of laboratory results Abnormal [facility] MCH (RBC) [Entitic mass] 23.2 pg Low 26. 0 - 34.0 pg [facility] MCHC (RBC) [Mass/Vol] 27.7 % Low 30.5 - 36.0 % [facility] MCV (RBC) [Entitic vol] 83.9 fL 77.0 - 99.0 fL [facility] Platelet mean volume (Bld) [Entitic vol] 9.1 fL 9.0 - 12.7 fL [facility] Platelets (Bld) [#/Vol] 276 10*3/uL 140 - 440 10*3/uL [facility] RBC (Bld) [#/Vol] 3.36 10*6/uL Low 4.40 - 5.9 0 10*6/uL [facility] WBC (Bld) [#/Vol] 12.7 10*3/uL High 3.6 - 10.7 10*3/uL [facility] CBC WITH AUTO DIFFERENTIALon 04-13-2025 Erythrocyte distribution width (RBC) [Ratio] 25.0 % High 11.5-15.0 [facility] Comment on above: Performed By: #### L [id number], [id number] ####Catalogue Maker: UNA ARCE ([id number])[facility] ([facility])[address] [place] [address] Hematocrit (Bld) [Volume fraction] 28.2 % Low 40.0-52.0 [facility] Comment on above: Performed By: #### Gilbert [id number], [id number] ####Catalogue Maker: UNA ARCE ([id number])[facility] ([facility])[address] [place] [address] Hemoglobin (Bld) [Mass/Vol] 7.8 g/dL Low 13.0-18.0 [facility] Comment on above: Performed By: #### L [id number], [id number] ####Catalogue Maker: UNA ARCE ([id number])[facility] ([facility])[address] [place] [address] MCH (RBC) [Entitic mass] 23.2 pg Low 26.0-34.0 [facility] Comment on above: Performed By: #### L [id number], [id number] ####Catalogue Maker: UNA ARCE ([id number])[facility] ([facility])[address] [place] [address] MCHC 27.7 % Low 30.5-36.0 [facility] Comment on above: Performed By: #### L [id number], [id number] ####Catalogue Maker: UNA ARCE ([id number])[facility] MCKAYN ([facility])[address] MCV (RBC) [Entitic vol] 83.9 fL Normal 77.0-99.0 [facility] Comment on above: Performed By: #### L [id number], [id number] ####Catalogue Maker: UNA ARCE ([id number])MONISHAA BARBCHRISTINAN ([facility])[address] Platelet mean volume (Bld) [Entitic vol] 9.1 fL Normal 9.0-12.7 [facility] Comment on above: Performed By: #### L [id number], [id number] ####Catalogue Maker: UNA ARCE ([id number])[facility]ENTERAngel [place] ([facility])[address] Platelets (Bld) [#/Vol] 276 10*3/uL Normal 140-440 [facility] Comment on above: Performed By: #### L [id number], [id number] ####Catalogue Maker: UNA ARCE ([id number])LYNETTE BASHIRN ([facility])[address] RBC (Bld) [#/Vol] 3.36 10*6/uL Low 4.40-5.90 [facility] Comment on above: Performed By: #### L [id number], [id number] ####Catalogue Maker: UNA ARCE ([id number])[facility]ENTERA [place] ([facility])[address] WBC (Bld) [#/Vol] 12.7 10*3/uL High 3.6-10.7 [facility] Comment on above: Performed By: #### L [id number], [id number] ####Catalogue Maker: UNA ARCE ([id number])[facility]ENTERA [place] ([facility])[address] COMPREHENSIVE METABOLIC PANE Anant 04-13-2025 Albumin [Mass/Vol] 2.2 g/dL Low 3.4-4.8 [facility] Comment on above: Performed By: #### L AB103, [id number], LAB17 ####Catalogue Maker: UNA ARCE ([id number])[facility]A [place] ([facility])[address] ALP [Catalytic activity/Vol] 52 U/L Normal 40-150 [facility] Comment on above: Performed By: #### L AB103, [id number], LAB17 ####Catalogue Maker: UNA ARCE ([id number])[facility]ENTERA [place] ([facility])[address] ALT [Catalytic activity/Vol] U/L Normal <40 [facility] Comment on above: Performed By: #### Gilbert AB103, [id number], LAB17 ####Catalogue Maker: UNA ARCE ([id number])[facility] [place] ([facility])[address] Anion gap [Moles/Vol] 10 mmol/L Normal 3-13 [facility] Comment on above: Performed By: #### L AB103, [id number], LAB17 ####Catalogue Maker: UNA ARCE ([id number])[facility] [place] ([facility])[address] AST [Catalytic activity/Vol] 25 U/L Normal <34 [facility] Comment on above: Performed By: #### L AB103, KHH902, LAB17 ####Catalogue Maker: UNA ARCE ([id number])[facility] [place] ([facility])[address] Bilirubin [Mass/Vol] 0.6 mg/dL Normal <1.2 [facility] Comment on above: Performed By: #### L AB103, [id number], LAB17 ####Catalogue Maker: UNA ARCE ([id number])[facility]ENTERA [place] ([facility])[address] [place] [address] [place] Calcium [Mass/Vol] 8.1 mg/dL Low 8.8-10.0 [facility] Comment on above: Performed By: #### L AB103, [id number], LAB17 ####Catalogue Maker: UNA ARCE ([id number])[facility] ([facility])[address] Chloride [Moles/Vol] 93 mmol/L Low 98-107 [facility] Comment on above: Performed By: #### L AB103, [id number], LAB17 ####Catalogue Maker: UNA ARCE ([id number])[facility] ([facility])[address] CO2 [Moles/Vol] 36 mmol/L High 23-31 [facility] Comment on above: Performed By: #### Gilbert ABLilly, UUD853, LAB17 ####Catalogue Maker: UNA ARCE ([id number])[facility] ([facility])[address] Creatinine [Mass/Vol] 1.46 mg/dL High 0.72-1.25 [facility] Comment on above: Performed By: #### L ABLilly, PIL556, LAB17 ####Catalogue Maker: UNA ARCE ([id number])[facility] ([facility])[address] GLOMERULAR FILTRATION RATE ML/MIN/1.73 SQ M.PREDICTED 45.7 mL/min/1.73m*2 Low >60.0 [facility] Comment on above: Result Comment: Calc ulation based on the Chronic Kidney Disease Epidemiology Collaboration (CKD-EPI) equation refit without adjustment for race Performed By: #### L AB103, [id number], LAB17 ####Catalogue Maker: UNA ARCE ([id number])[facility] ([facility])[address] Glucose [Mass/Vol] 94 mg/dL Normal 82-115 [facility] Comment on above: Performed By: #### L AB103, [id number], LAB17 ####Catalogue Maker: UNA ARCE ([id number])[facility]ENTERA [facility] ([facility])[address] Potassium [Moles/Vol] 3.4 mmol/L Low 3.5-5.1 [facility] Comment on above: Result Comment: [facility] potassium values may be up to 0.5 mmol/L lower than serum values. Performed By: #### L AB103, BIT694, LAB17 ####Catalogue Maker: UNA ARCE ([id number])[facility] ([facility])[address] Protein [Mass/Vol] 5.8 g/dL Low 6.4-8.3 [facility] Comment on above: Performed By: #### L AB103, [id number], LAB17 ####Catalogue Maker: UNA ARCE ([id number])[facility] ([facility])[address] Sodium [Moles/Vol] 139 mmol/L Normal 136-145 [facility] Comment on above: Performed By: #### L AB103, [id number], LAB17 ####Catalogue Maker: UNA ARCE ([id number])[facility] ([facility])[address] Urea nitrogen [Mass/Vol] 37 mg/dL High 9-23 [facility] Comment on above: Performed By: #### L AB103, [id number], LAB17 ####Catalogue Maker: UNA ARCE ([id number])[facility] ([facility])[address] Comprehensive metabolic 1998 panelon 04-13-2025 Albumin [Mass/Vol] 2.2 g/dL Low 3.4 - 4.8 g/dL [facility] ALP [Catalytic activity/Vol] 52 U/L 40 - 150 U/L [facility] ALT [Catalytic activity/Vol] U/L NINF - 40 U/L [facility] Anion gap [Moles/Vol] 10 mmol/L 3 - 13 mmol/L [facility] AST [Catalytic activity/Vol] 25 U/L NINF - 34 U/L [facility] Bilirubin [Mass/Vol] 0.6 mg/dL NINF - 1.2 mg/dL [facility] Calcium [Mass/Vol] 8.1 mg/dL Low 8.8 - 10. 0 mg/dL [facility] Chloride [Moles/Vol] 93 mmol/L Low 98 - 10 7 mmol/L [facility] CO2 [Moles/Vol] 36 mmol/L High 23 - 31 mmol/L [facility] Creatinine [Mass/Vol] 1.46 mg/dL High 0.72 - 1.25 mg/dL [facility] GFR/1.73 sq M.predicted (S/P/Bld) [Vol rate/Area] 45.7 mL/min Low - PINF [facility] Glucose [Mass/Vol] 94 mg/dL 82 - 115 mg/dL [facility] Interpretation and review of laboratory results Abnormal [facility] Potassium [Moles/Vol] 3.4 mmol/L Low 3.5 - 5.1 mmol/L [facility] Protein [Mass/Vol] 5.8 g/dL Low 6.4 - 8.3 g/dL [facility] Sodium [Moles/Vol] 139 mmol/L 136 - 145 mmol/L [facility] Urea nitrogen [Mass/Vol] 37 mg/dL High 9 - 23 mg/d L [facility] Laboratory - Chemistry and C hemistry - challengeon 04-13-2025 Base excess Calc (Bld) [Moles/Vol] 11.7 mmol/L High -3.0 - 3.0 mmol/L [facility] CO2 (Bld) [Partial pressure] 59.2 mm[Hg] High [facility] CO2 [Moles/Vol] 39.9 mmol/L High 22.0 - 28.0 mmol/L [facility] HCO3 (Bld) [Moles/Vol] 38.1 mmol/L High 21.0 - 27.0 mmol/L [facility] Oxygen (Bld) [Partial pressure] 79.2 mm[Hg] Low [facility] pH (Bld) 7.426 [pH] 7.350 - 7.450 [facility] Magnesium [Mass/Vol] 1.9 mg/dL 1.6 - 2 .6 mg/dL [facility] Laboratory - Hematology and Cell countson 04-13-2025 Hemoglobin (Bld) [Mass/Vol] 11.3 g/dL Low 13.5 - 17.5 g/dl [facility] Anisocytosis Ql (Bld) Moderate Abnormal (none) [facility] Eosinophils (Bld) [#/Vol] 0.3 10*3/uL 0.0 - 0.5 10*3/uL [facility] Eosinophils/100 WBC (Bld) 2 % 0 - 6 % [facility] Hypochromia Ql (Bld) Slight Abnormal (none) [facility] Lymphocytes (Bld) [#/Vol] 1.9 10*3/uL 1.0 - 4.3 10*3/uL [facility] Lymphocytes/100 WBC (Bld) 15 % 15 - 45 % [facility] Monocytes (Bld) [#/Vol] 0.9 10*3/uL 0.0 - 0.9 10*3/uL [facility] Monocytes/100 WBC (Bld) 7 % 5 - 13 % [facility] Myelocytes (Bld) [#/Vol] 0.1 10*3/uL High SELENE F - 0.0 10*3/uL [facility] Myelocytes/100 WBC (Bld) 1 % High NINF - 0 % [facility] Neutrophils (Bld) [#/Vol] 9.7 10*3/uL High 1.8 - 7.5 10*3/uL [facility] Poikilocytosis LM Ql (Bld) Slight Abnormal (none) [facility] RBC morphology finding Nom (Bld) abnormal [facility] Segmented neutrophils/100 WBC (Bld) 76 % 38 - 82 % [facility] Stomatocytes LM Ql (Bld) Slight Abnormal (none) [facility] Laboratory - Microbiology an d Antimicrobial susceptibilityon 04-13-2025 Bacteria identified Aer cx Nom (Unsp spec) No growth at 4 days [facility] Laboratory - Microbiology an d Antimicrobial susceptibilityOrdered By: Bianca Daigle on 04-13-2025 Bacteria identified Aer cx Nom (Unsp spec) No growth at 4 days [facility] MAGNESIUMon 04-13-2025 Magnesium [Mass/Vol] 1.9 mg/dL Normal 1.6-2.6 [facility] Comment on above: Result Comment: YARELI [place] COMMENTS:Higher values can be expected in females during menses. Performed By: #### L AB103, WON033, LAB17 ####Catalogue Maker: UNA ARCE ([id number])[facility] [place] ([facility])[address] MANUAL DIFFERENTIAL (CELLAVI BANDAR)on 04-13-2025 ANISOCYTOSIS PRESENCE IN BLOOD BY LIGHT MICROSCOPY Moderate Abnormal (none) [facility] Comment on above: Performed By: #### L [id number], [id number] ####Catalogue Maker: UNA ARCE ([id number])[facility] [place] ([facility])[address] BAND NEUTROPHILS TOTAL PER COUNTED LEUKOCYTES BY MANUAL COUNT Normal [facility] Comment on above: Performed By: #### L [id number], [id number] ####Catalogue Maker: UNA ARCE ([id number])[facility] [place] ([facility])[address] BASOPHILS TOTAL PER COUNTED LEUKOCYTES BY MANUAL COUNT Normal [facility] Comment on above: Performed By: #### L [id number], [id number] ####Catalogue Maker: UNA ARCE ([id number])[facility] [place] ([facility])[address] BLASTS TOTAL PER COUNTED LEUKOCYTES BY MANUAL COUNT Normal [facility] Comment on above: Performed By: #### L [id number], [id number] ####Catalogue Maker: UNA ARCE ([id number])[facility] [place] ([facility])[address] [place] [address] [place] EOSINOPHILS (10*3/UL) IN BLOOD-CELLAVISION 0.3 10*3/uL Normal 0.0-0.5 [facility] Comment on above: Performed By: #### L [id number], [id number] ####Catalogue Maker: UNA ARCE ([id number])[facility] [place] ([facility])[address] [place] [address] [place] EOSINOPHILS TOTAL PER COUNTED LEUKOCYTES BY MANUAL COUNT 2 High 0-1 [facility] Comment on above: Performed By: #### L [id number], [id number] ####Catalogue Maker: UNA STAUFFERMELANIE ([id number])[facility] [place] ([facility])[address] [place] [address] [place] EOSINOPHILS/100 LEUKOCYTES IN BLOOD-CELLAVISION 2 % Normal 0-6 [facility] Comment on above: Performed By: #### L [id number], [id number] ####Catalogue Maker: UNA STAUFFERMELANIE ([id number])[facility] [place] ([facility])[address] [place] [address] [place] HYPOCHROMIA (PRESENCE) IN BLOOD BY LIGHT MICROSCOPY Slight Abnormal (none) [facility] Comment on above: Performed By: #### L [id number], [id number] ####Catalogue Maker: UNA ARCE ([id number])[facility] [place] ([facility])[address] [place] [address] [place] LYMPHOCYTES (10*3/UL) IN BLOOD-CELLAVISION 1.9 10*3/uL Normal 1.0-4.3 [facility] Comment on above: Performed By: #### L [id number], [id number] ####Catalogue Maker: UNA ARCE ([id number])[facility] [place] ([facility])[address] [place] [address] [place] LYMPHOCYTES TOTAL PER COUNTED LEUKOCYTES BY MANUAL COUNT 15 Normal [facility] Comment on above: Performed By: #### L [id number], [id number] ####Catalogue Maker: UNA ARCE ([id number])[facility] [place] ([facility])[address] [place] [address] [place] LYMPHOCYTES/100 LEUKOCYTES IN BLOOD-CELLAVISION 15 % Normal 15-45 [facility] Comment on above: Performed By: #### L [id number], [id number] ####Catalogue Maker: UNA ARCE ([id number])[facility] [place] ([facility])[address] [place] [address] [place] METAMYELOCYTES TOTAL PER COUNTED LEUKOCYTES BY MANUAL COUNT Normal [facility] Comment on above: Performed By: #### L [id number], [id number] ####Catalogue Maker: UNA ARCE ([id number])[facility] [place] ([facility])[address] [place] [address] [place] MONOCYTES (10*3/UL) IN BLOOD-CELLAVISION 0.9 10*3/uL Normal 0.0-0.9 [facility] Comment on above: Performed By: #### L [id number], [id number] ####Catalogue Maker: UNA ARCE ([id number])[facility] [place] ([facility])[address] [place] [address] [place] MONOCYTES TOTAL PER COUNTED LEUKOCYTES BY MANUAL COUNT 7 Normal [facility] Comment on above: Performed By: #### L [id number], [id number] ####Catalogue Maker: UNA ARCE ([id number])[facility] [place] ([facility])[address] [place] [address] [place] MONOCYTES/100 LEUKOCYTES IN BLOOD-LUCIANA 7 % Normal 5-13 [facility] Comment on above: Performed By: #### L [id number], [id number] ####Catalogue Maker: UNA ARCE ([id number])[facility] [place] ([facility])[address] [place] [address] [place] MYELOCYTES (10*3/UL) IN BLOOD-CELLAVISION 0.1 10*3/uL High <=0.0 [facility] Comment on above: Performed By: #### L [id number], [id number] ####Catalogue Maker: UNA ARCE ([id number])[facility] [place] ([facility])[address] [place] [address] [place] MYELOCYTES COUNTED BY MANUAL COUNT 1 Normal [facility] Comment on above: Performed By: #### L [id number], [id number] ####Catalogue Maker: UNA ARCE ([id number])[facility] [place] ([facility])[address] [place] [address] [place] MYELOCYTES/100 LEUKOCYTES IN BLOOD-CELLAVISION 1 % High <=0 [facility] Comment on above: Performed By: #### L [id number], [id number] ####Catalogue Maker: UNA ARCE ([id number])[facility] [place] ([facility])[address] [place] [address] [place] NEUTROPHILS TOTAL PER COUNTED LEUKOCYTES BY MANUAL COUNT 77 Normal [facility] Comment on above: Performed By: #### L [id number], [id number] ####Catalogue Maker: UNA ARCE ([id number])[facility] [place] ([facility])[address] [place] [address] [place] POIKILOCYTOSIS (PRESENCE) IN BLOOD BY LIGHT MICROSCOPY Slight Abnormal (none) [facility] Comment on above: Performed By: #### L [id number], [id number] ####Catalogue Maker: UNA ARCE ([id number])[facility] [place] ([facility])[address] [place] [address] [place] PROMYELOCYTES TOTAL PER COUNTED LEUKOCYTES BY MANUAL COUNT Normal [facility] Comment on above: Performed By: #### L [id number], [id number] ####Catalogue Maker: UNA ARCE ([id number])[facility] [place] ([facility])[address] [place] [address] [place] RBC MORPHOLOGY IN BLOOD abnormal Normal [facility] Comment on above: Performed By: #### L [id number], [id number] ####Catalogue Maker: UNA ARCE ([id number])[facility] [place] ([facility])[address] [place] [address] [place] SEGMENTED NEUTROPHILS (10*3/UL) IN BLOOD-CELLAVISION 9.7 10*3/uL High 1.8-7.5 [facility] Comment on above: Performed By: #### L [id number], [id number] ####Catalogue Maker: UNA ARCE ([id number])[facility] [place] ([facility])[address] SEGMENTED NEUTROPHILS/100 LEUKOCYTES-CE 76 % Normal 38-82 [facility] Comment on above: Performed By: #### L [id number], [id number] ####Catalogue Maker: UNA ARCE ([id number])[facility] ([facility])[address] STOMATOCYTES IN BLOOD BY LIGHT MICROSCOPY Slight Abnormal (none) [facility] Comment on above: Performed By: #### L [id number], [id number] ####Catalogue Maker: UNA ARCE ([id number])[facility] ([facility])[address] UNCLASSIFIED CELLS TOTAL PER COUNTED LEUKOCYTES BY MANUAL COUNT Normal [facility] Comment on above: Performed By: #### L [id number], [id number] ####Catalogue Maker: UNA ARCE ([id number])[facility] ([facility])[address] VARIANT LYMPHOCYTES TOTAL PER COUNTED LEUKOCYTES BY MANUAL COUNT Normal [facility] Comment on above: Performed By: #### L [id number], [id number] ####Catalogue Maker: UNA ARCE ([id number])[facility] ([facility])[address] [place] [address] Magnesium [Mass/Vol]on 04-13 [facility] No Panel Informationon 04-13 Amount Of Oxygen 2 lpm [facility] alth Interpretation and review of laboratory results Abnormal [facility] Source Of Oxygen Nasal Cannula (LPM) [facility] Interpretation and review of laboratory results Normal [facility] Eosinophils Manual 2 High 0 - 1 [facility] Interpretation and review of laboratory results Abnormal [facility] Lymphocytes Manual 15 [facility] Monocytes Manual 7 [facility] Myelocytes Manual 1 [facility] ealt Neutrophils Manual 77 [facility] PHOSPHORUSon 04-13-2025 Phosphate [Mass/Vol] 2.9 mg/dL Normal 2.3-4.7 [facility] Comment on above: Performed By: #### L AB103, [id number], LAB17 ####Catalogue Maker: UNA ARCE ([id number])[facility] ([facility])[address] [place] [address] Phosphate [Moles/Vol]on Phosphate [Mass/Vol] 2.9 mg/dL 2.3 - 4 .7 mg/dL [facility] Progress Noteon 04-13-2025 [facility] Normal [facility] Progress [facility] Normal [facility] XR Chest Single viewon 04-13 Radiology Study observation (narrative) [facility] alth [id number] 04-12-2025 [id number] Normal [facility] [id number] Normal [facility] CBC W Auto Differential pane l (Bld)on 04-12-2025 Erythrocyte distribution width (RBC) [Ratio] 24.3 % High 11.5 - 15.0 % [facility] Hematocrit (Bld) [Volume fraction] 26.8 % Low 40.0 - 52.0 % [facility] Hemoglobin (Bld) [Mass/Vol] 7.4 g/dL Low 13.0 - 18.0 g/dL [facility] MCH (RBC) [Entitic mass] 23.1 pg Low 26. 0 - 34.0 pg [facility] MCHC (RBC) [Mass/Vol] 27.6 % Low 30.5 - 36.0 % [facility] MCV (RBC) [Entitic vol] 83.8 fL 77.0 - 99.0 fL [facility] Platelet mean volume (Bld) [Entitic vol] 9.3 fL 9.0 - 12.7 fL [facility] Platelets (Bld) [#/Vol] 272 10*3/uL 140 - 440 10*3/uL [facility] RBC (Bld) [#/Vol] 3.2 10*6/uL Low 4.40 - 5.9 0 10*6/uL [facility] WBC (Bld) [#/Vol] 12 10*3/uL High 3.6 - 10.7 10*3/uL [facility] CBC WITH AUTO DIFFERENTIALon 04-12-2025 Erythrocyte distribution width (RBC) [Ratio] 24.3 % High 11.5-15.0 [facility] Comment on above: Performed By: #### L [id number], [id number] ####Catalogue Maker: UNA ARCE ([id number])[facility] CENTERAngel SANCHEZGUADALUPE COUNTY HOSPITALMarisol (SBHLAB)[address] Hematocrit (Bld) [Volume fraction] 26.8 % Low 40.0-52.0 [facility] Comment on above: Performed By: #### L [id number], [id number] ####Catalogue Maker: UNA ARCE ([id number])[facility] ([facility])[address] [place] [address] Hemoglobin (Bld) [Mass/Vol] 7.4 g/dL Low 13.0-18.0 [facility] Comment on above: Performed By: #### L [id number], [id number] ####Catalogue Maker: UNA ARCE ([id number])[facility]ENTERAngel [place] (SBHLAB)[address] [place] [address] MCH (RBC) [Entitic mass] 23.1 pg Low 26.0-34.0 [facility] Comment on above: Performed By: #### L [id number], [id number] ####Catalogue Maker: UNA ARCE ([id number])[facility] (SBHLAB)[address] MCHC 27.6 % Low 30.5-36.0 [facility] Comment on above: Performed By: #### L [id number], [id number] ####Catalogue Maker: UNA ARCE ([id number])[facility] (SBHLAB)[address] MCV (RBC) [Entitic vol] 83.8 fL Normal 77.0-99.0 [facility] Comment on above: Performed By: #### L [id number], [id number] ####Catalogue Maker: UNA ARCE ([id number])LYNETTE BASHIRN (SBHLAB)[address] Platelet mean volume (Bld) [Entitic vol] 9.3 fL Normal 9.0-12.7 [facility] Comment on above: Performed By: #### L [id number], [id number] ####Catalogue Maker: UNA ARCE ([id number])[facility]ENTERAngel [facility] (SBHLAB)[address] Platelets (Bld) [#/Vol] 272 10*3/uL Normal 140-440 [facility] Comment on above: Performed By: #### L [id number], [id number] ####Catalogue Maker: UNA ARCE ([id number])[facility]Angel [facility] (SBHLAB)[address] RBC (Bld) [#/Vol] 3.20 10*6/uL Low 4.40-5.90 [facility] Comment on above: Performed By: #### L [id number], [id number] ####Catalogue Maker: UNA ARCE ([id number])[facility] [place] (SBHLAB)[address] [place] [address] WBC (Bld) [#/Vol] 12.0 10*3/uL High 3.6-10.7 [facility] Comment on above: Performed By: #### L [id number], [id number] ####Catalogue Maker: UNA ARCE ([id number])[facility]ENTERAngel [facility] (SBHLAB)[address] COMPREHENSIVE METABOLIC PANE Anant 04-12-2025 Albumin [Mass/Vol] 2.2 g/dL Low 3.4-4.8 [facility] Comment on above: Performed By: #### L AB103, [id number], LAB17 ####Catalogue Maker: UNA ARCE ([id number])[facility]ENTERAngel [facility] (SBHLAB)[address] ALP [Catalytic activity/Vol] 49 U/L Normal 40-150 [facility] Comment on above: Performed By: #### L AB103, [id number], LAB17 ####Catalogue Maker: UNA ARCE ([id number])[facility]ENTERA MCKAYN (SBHLAB)[address] [place] [address] [place] ALT [Catalytic activity/Vol] U/L Normal <40 [facility] Comment on above: Performed By: #### L AB103, [id number], LAB17 ####Catalogue Maker: UNA ARCE ([id number])[facility]ENTERA [place] (SBHLAB)[address] Anion gap [Moles/Vol] 7 mmol/L Normal 3-13 [facility] Comment on above: Performed By: #### Gilbert AB103, [id number], LAB17 ####Catalogue Maker: UNA ARCE ([id number])[facility] ([facility])[address] [place] [address] [place] AST [Catalytic activity/Vol] 19 U/L Normal <34 [facility] Comment on above: Performed By: #### Gilbert ABLilly, [id number], LAB17 ####Catalogue Maker: UNA ARCE ([id number])[facility]ENTERA [facility] (SBHLAB)[address] Bilirubin [Mass/Vol] 0.6 mg/dL Normal <1.2 [facility] Comment on above: Performed By: #### L AB103, [id number], LAB17 ####Catalogue Maker: UNA ARCE ([id number])[facility]ENTERA [place] (SBHLAB)[address] [place] [address] [place] Calcium [Mass/Vol] 7.9 mg/dL Low 8.8-10.0 [facility] Comment on above: Performed By: #### L AB103, [id number], LAB17 ####Catalogue Maker: UNA ARCE ([id number])[facility] ([facility])[address] [place] [address] [place] Chloride [Moles/Vol] 95 mmol/L Low 98-107 [facility] Comment on above: Performed By: #### L AB103, [id number], LAB17 ####Catalogue Maker: UNA ARCE ([id number])[facility] (SBHLAB)[address] CO2 [Moles/Vol] 37 mmol/L High 23-31 [facility] Comment on above: Performed By: #### L AB103, [id number], LAB17 ####Catalogue Maker: UNA ARCE ([id number])[facility] (SBHLAB)[address] Creatinine [Mass/Vol] 1.53 mg/dL High 0.72-1.25 [facility] Comment on above: Performed By: #### L AB103, [id number], LAB17 ####Catalogue Maker: UNA ARCE ([id number])[facility] (SBHLAB)[address] GLOMERULAR FILTRATION RATE ML/MIN/1.73 SQ M.PREDICTED 43.2 mL/min/1.73m*2 Low >60.0 [facility] Comment on above: Result Comment: Calc ulation based on the Chronic Kidney Disease Epidemiology Collaboration (CKD-EPI) equation refit without adjustment for race Performed By: #### L AB103, [id number], LAB17 ####Catalogue Maker: UNA ARCE ([id number])[facility] (SBHLAB)[address] Glucose [Mass/Vol] 103 mg/dL Normal 82-115 [facility] Comment on above: Performed By: #### L AB103, QTV049, LAB17 ####Catalogue Maker: UNA ARCE ([id number])[facility] (SBHLAB)[address] Potassium [Moles/Vol] 3.7 mmol/L Normal 3.5-5.1 [facility] Comment on above: Result Comment: [facility] potassium values may be up to 0.5 mmol/L lower than serum values. Performed By: #### L AB103, JBY754, LAB17 ####Catalogue Maker: UNA ARCE ([id number])[facility] (SBHLAB)[address] Protein [Mass/Vol] 5.6 g/dL Low 6.4-8.3 [facility] Comment on above: Performed By: #### L AB103, WSH020, LAB17 ####Catalogue Maker: UNA ARCE ([id number])[facility] (SBHLAB)[address] Sodium [Moles/Vol] 139 mmol/L Normal 136-145 [facility] Comment on above: Performed By: #### L AB103, EIU746, LAB17 ####Catalogue Maker: UNA ARCE ([id number])[facility] (SBHLAB)[address] [place] [address] Urea nitrogen [Mass/Vol] 40 mg/dL High 9-23 [facility] Comment on above: Performed By: #### L AB103, [id number], LAB17 ####Catalogue Maker: UNA ARCE ([id number])[facility] (SBHLAB)[address] [place] [address] Comprehensive metabolic 1998 panelon 04-12-2025 Albumin [Mass/Vol] 2.2 g/dL Low 3.4 - 4.8 g/dL [facility] ALP [Catalytic activity/Vol] 49 U/L 40 - 150 U/L [facility] ALT [Catalytic activity/Vol] U/L NINF - 40 U/L [facility] Anion gap [Moles/Vol] 7 mmol/L 3 - 13 mmol/L [facility] AST [Catalytic activity/Vol] 19 U/L NINF - 34 U/L [facility] Bilirubin [Mass/Vol] 0.6 mg/dL NINF - 1.2 mg/dL [facility] Calcium [Mass/Vol] 7.9 mg/dL Low 8.8 - 10. 0 mg/dL [facility] Chloride [Moles/Vol] 95 mmol/L Low 98 - 10 7 mmol/L [facility] CO2 [Moles/Vol] 37 mmol/L High 23 - 31 mmol/L [facility] Creatinine [Mass/Vol] 1.53 mg/dL High 0.72 - 1.25 mg/dL [facility] GFR/1.73 sq M.predicted (S/P/Bld) [Vol rate/Area] 43.2 mL/min Low - PINF [facility] Glucose [Mass/Vol] 103 mg/dL 82 - 115 mg/dL [facility] Interpretation and review of laboratory results Abnormal [facility] Potassium [Moles/Vol] 3.7 mmol/L 3.5 - 5.1 mmol/L [facility] Protein [Mass/Vol] 5.6 g/dL Low 6.4 - 8.3 g/dL [facility] Sodium [Moles/Vol] 139 mmol/L 136 - 145 mmol/L [facility] Urea nitrogen [Mass/Vol] 40 mg/dL High 9 - 23 mg/d L [facility] Consulton 04-12-2025 Consult Normal [facility] - Chemistry and C hemistry - challengeon 04-12-2025 Magnesium [Mass/Vol] 2.2 mg/dL 1.6 - 2 .6 mg/dL [facility] Laboratory - Hematology and Cell countson 04-12-2025 Anisocytosis Ql (Bld) Slight Abnormal (none) [facility] Band form neutrophils (Bld) [#/Vol] 0.1 10*3/uL High NINF - 0.0 10*3/uL [facility] Band form neutrophils/100 WBC (Bld) 1 % High NINF - 0 % [facility] Eosinophils (Bld) [#/Vol] 0.8 10*3/uL High 0.0 - 0.5 10*3/uL [facility] Eosinophils/100 WBC (Bld) 7 % High 0 - 6 % [facility] Lymphocytes (Bld) [#/Vol] 0.7 10*3/uL Low 1.0 - 4.3 10*3/uL [facility] Lymphocytes/100 WBC (Bld) 6 % Low 15 - 45 % [facility] Monocytes (Bld) [#/Vol] 0.5 10*3/uL 0.0 - 0.9 10*3/uL [facility] Monocytes/100 WBC (Bld) 4 % Low 5 - 13 % [facility] Neutrophils (Bld) [#/Vol] 9.8 10*3/uL High 1.8 - 7.5 10*3/uL [facility] RBC morphology finding Nom (Bld) abnormal [facility] Segmented neutrophils/100 WBC (Bld) 81 % 38 - 82 % [facility] MAGNESIUMon 04-12-2025 Magnesium [Mass/Vol] 2.2 mg/dL Normal 1.6-2.6 [facility] Comment on above: Result Comment: YARELI [place] COMMENTS:Higher values can be expected in females during menses. Performed By: #### L AB103, [id number], LAB17 ####Catalogue Maker: UNA ARCE ([id number])[facility] [place] (SBHLAB)[address] MANUAL DIFFERENTIAL (CELLAVI BANDAR)on 04-12-2025 ANISOCYTOSIS PRESENCE IN BLOOD BY LIGHT MICROSCOPY Slight Abnormal (none) [facility] Comment on above: Performed By: #### L [id number], [id number] ####Catalogue Maker: UNA ARCE ([id number])[facility] [place] (SBHLAB)[address] BAND NEUTROPHILS TOTAL PER COUNTED LEUKOCYTES BY MANUAL COUNT 1 Normal [facility] Comment on above: Performed By: #### L [id number], [id number] ####Catalogue Maker: UNA ARCE ([id number])[facility] [place] (SBHLAB)[address] [place] [address] [place] BANDS (10*3/UL) IN BLOOD-CELLAVISION 0.1 10*3/uL High <=0.0 [facility] Comment on above: Performed By: #### L [id number], [id number] ####Catalogue Maker: UNA ARCE ([id number])[facility] [place] (SBHLAB)[address] BASOPHILS TOTAL PER COUNTED LEUKOCYTES BY MANUAL COUNT Normal [facility] Comment on above: Performed By: #### L [id number], [id number] ####Catalogue Maker: UNA ARCE ([id number])[facility] [place] (SBHLAB)[address] [place] [address] [place] BLASTS TOTAL PER COUNTED LEUKOCYTES BY MANUAL COUNT Normal [facility] Comment on above: Performed By: #### L [id number], [id number] ####Catalogue Maker: UNA BERMUDEZPEDRO ([id number])[facility] [place] (SBHLAB)[address] [place] [address] [place] EOSINOPHILS (10*3/UL) IN BLOOD-CELLAVISION 0.8 10*3/uL High 0.0-0.5 [facility] Comment on above: Performed By: #### L [id number], [id number] ####Catalogue Maker: UNA BERMUDEZPEDRO ([id number])[facility] [place] (SBHLAB)[address] [place] [address] [place] EOSINOPHILS TOTAL PER COUNTED LEUKOCYTES BY MANUAL COUNT 7 High 0-1 [facility] Comment on above: Performed By: #### L [id number], [id number] ####Catalogue Maker: UNA BERMUDEZPEDRO ([id number])[facility] [place] (SBHLAB)[address] [place] [address] [place] EOSINOPHILS/100 LEUKOCYTES IN BLOOD-CELLAVISION 7 % High 0-6 [facility] Comment on above: Performed By: #### L [id number], [id number] ####Catalogue Maker: UNA STAUFFERMELANIE ([id number])[facility] [place] (SBHLAB)[address] [place] [address] [place] LYMPHOCYTES (10*3/UL) IN BLOOD-CELLAVISION 0.7 10*3/uL Low 1.0-4.3 [facility] Comment on above: Performed By: #### L [id number], [id number] ####Catalogue Maker: UNA ARCE ([id number])[facility] [place] (SBHLAB)[address] [place] [address] [place] LYMPHOCYTES TOTAL PER COUNTED LEUKOCYTES BY MANUAL COUNT 6 Normal [facility] Comment on above: Performed By: #### L [id number], [id number] ####Catalogue Maker: UNA BERMUDEZPEDRO ([id number])[facility] [place] (SBHLAB)[address] [place] [address] [place] LYMPHOCYTES/100 LEUKOCYTES IN BLOOD-CELLAVISION 6 % Low 15-45 [facility] Comment on above: Performed By: #### L [id number], [id number] ####Catalogue Maker: UNA BERMUDEZSILASMELANIE ([id number])[facility] [place] (SBHLAB)[address] [place] [address] [place] METAMYELOCYTES TOTAL PER COUNTED LEUKOCYTES BY MANUAL COUNT Normal [facility] Comment on above: Performed By: #### L [id number], [id number] ####Catalogue Maker: UNA BERMUDEZSILASMELANIE ([id number])[facility] [place] (SBHLAB)[address] [place] [address] [place] MONOCYTES (10*3/UL) IN BLOOD-CELLAVISION 0.5 10*3/uL Normal 0.0-0.9 [facility] Comment on above: Performed By: #### L [id number], [id number] ####Catalogue Maker: UNA BERMUDEZPEDRO ([id number])[facility] [place] (SBHLAB)[address] [place] [address] [place] MONOCYTES TOTAL PER COUNTED LEUKOCYTES BY MANUAL COUNT 4 Normal [facility] Comment on above: Performed By: #### L [id number], [id number] ####Catalogue Maker: UNA STAUFFERMELANIE ([id number])[facility] [place] (SBHLAB)[address] [place] [address] [place] MONOCYTES/100 LEUKOCYTES IN BLOOD-LUCIANA 4 % Low 5-13 [facility] Comment on above: Performed By: #### L [id number], [id number] ####Catalogue Maker: UNA STAUFFERMELANIE ([id number])[facility] [place] (SBHLAB)[address] [place] [address] [place] MYELOCYTES COUNTED BY MANUAL COUNT Normal [facility] Comment on above: Performed By: #### L [id number], [id number] ####Catalogue Maker: UNA ARCE ([id number])[facility] [place] (SBHLAB)[address] [place] [address] [place] NEUTROPHILS BAND FORM/100 LEUKOCYTES IN BLOOD-CELLAVISI 1 % High <=0 [facility] Comment on above: Performed By: #### L [id number], [id number] ####Catalogue Maker: UNA ARCE ([id number])[facility] [place] (SBHLAB)[address] [place] [address] [place] NEUTROPHILS TOTAL PER COUNTED LEUKOCYTES BY MANUAL COUNT 83 Normal [facility] Comment on above: Performed By: #### L [id number], [id number] ####Catalogue Maker: UNA ARCE ([id number])[facility] [place] (SBHLAB)[address] [place] [address] [place] PROMYELOCYTES TOTAL PER COUNTED LEUKOCYTES BY MANUAL COUNT Normal [facility] Comment on above: Performed By: #### L [id number], [id number] ####Catalogue Maker: UNA ARCE ([id number])[facility] [place] (SBHLAB)[address] [place] [address] [place] RBC MORPHOLOGY IN BLOOD abnormal Normal [facility] Comment on above: Performed By: #### L [id number], [id number] ####Catalogue Maker: UNA ARCE ([id number])[facility] [place] (SBHLAB)[address] [place] [address] [place] SEGMENTED NEUTROPHILS (10*3/UL) IN BLOOD-CELLAVISION 9.8 10*3/uL High 1.8-7.5 [facility] Comment on above: Performed By: #### L [id number], [id number] ####Catalogue Maker: UNA ARCE ([id number])[facility] [place] (SBHLAB)[address] [place] [address] [place] SEGMENTED NEUTROPHILS/100 LEUKOCYTES-CE 81 % Normal 38-82 [facility] Comment on above: Performed By: #### L [id number], [id number] ####Catalogue Maker: UNA ARCE ([id number])[facility] [place] (SBHLAB)[address] UNCLASSIFIED CELLS TOTAL PER COUNTED LEUKOCYTES BY MANUAL COUNT Normal [facility] Comment on above: Performed By: #### L [id number], [id number] ####Catalogue Maker: UNA ARCE ([id number])[facility]A [facility] (SBHLAB)[address] VARIANT LYMPHOCYTES TOTAL PER COUNTED LEUKOCYTES BY MANUAL COUNT Normal [facility] Comment on above: Performed By: #### L [id number], [id number] ####Catalogue Maker: UNA ARCE ([id number])[facility] (SBHLAB)[address] [place] [address] [place] Magnesium [Mass/Vol]on 04-12 [facility] No Panel Informationon 04-12 Bands Manual 1 [facility] Eosinophils Manual 7 High 0 - 1 [facility] Interpretation and review of laboratory results Abnormal [facility] Lymphocytes Manual 6 [facility] Monocytes Manual 4 [facility] alth Neutrophils Manual 83 [facility] Interpretation and review of laboratory results Normal [facility] PHOSPHORUSon 04-12-2025 Phosphate [Mass/Vol] 2.7 mg/dL Normal 2.3-4.7 [facility] Comment on above: Performed By: #### L AB103, [id number], LAB17 ####Catalogue Maker: UNA ARCE ([id number])[facility] (SBHLAB)[address] [place] [address] [place] Phosphate [Moles/Vol]on Phosphate [Mass/Vol] 2.7 mg/dL 2.3 - 4 .7 mg/dL [facility] Progress Noteon 04-12-2025 Progress Note Normal [facility] Progress Note Normal [facility] Progress Note Normal [facility] CBC W Auto Differential pane l (Bld)on 04-11-2025 Erythrocyte distribution width (RBC) [Ratio] 24.2 % High 11.5 - 15.0 % [facility] Hematocrit (Bld) [Volume fraction] 28.9 % Low 40.0 - 52.0 % [facility] Hemoglobin (Bld) [Mass/Vol] 7.9 g/dL Low 13.0 - 18.0 g/dL [facility] Interpretation and review of laboratory results Abnormal [facility] MCH (RBC) [Entitic mass] 22.7 pg Low 26. 0 - 34.0 pg [facility] MCHC (RBC) [Mass/Vol] 27.3 % Low 30.5 - 36.0 % [facility] MCV (RBC) [Entitic vol] 83 fL 77.0 - 99.0 fL [facility] Platelet mean volume (Bld) [Entitic vol] 9.2 fL 9.0 - 12.7 fL [facility] Platelets (Bld) [#/Vol] 313 10*3/uL 140 - 440 10*3/uL [facility] RBC (Bld) [#/Vol] 3.48 10*6/uL Low 4.40 - 5.9 0 10*6/uL [facility] WBC (Bld) [#/Vol] 13.8 10*3/uL High 3.6 - 10.7 10*3/uL [facility] CBC WITH AUTO DIFFERENTIALon 04-11-2025 Erythrocyte distribution width (RBC) [Ratio] 24.2 % High 11.5-15.0 [facility] Comment on above: Performed By: #### L [id number], [id number] ####Catalogue Maker: UNA [id number])[facility] ([facility])[address] [place] [address] Hematocrit (Bld) [Volume fraction] 28.9 % Low 40.0-52.0 [facility] Comment on above: Performed By: #### L [id number], [id number] ####Catalogue Maker: UNA ARCE ([id number])[facility] ([facility])[address] [place] [address] Hemoglobin (Bld) [Mass/Vol] 7.9 g/dL Low 13.0-18.0 [facility] Comment on above: Performed By: #### L [id number], [id number] ####Catalogue Maker: UNA ARCE ([id number])[facility]TE [place]ASHIRN (SBHLAB)[address] MCH (RBC) [Entitic mass] 22.7 pg Low 26.0-34.0 [facility] Comment on above: Performed By: #### L [id number], [id number] ####Catalogue Maker: UNA ARCE ([id number])[facility]ENTERAngel [facility] (SBHLAB)[address] MCHC 27.3 % Low 30.5-36.0 [facility] Comment on above: Performed By: #### L [id number], [id number] ####Catalogue Maker: UNA STAUFFERMELANIE ([id number])[facility]ENTERAngel [place] (SBHLAB)[address] MCV (RBC) [Entitic vol] 83.0 fL Normal 77.0-99.0 [facility] Comment on above: Performed By: #### L [id number], [id number] ####Catalogue Maker: UNA ARCE ([id number])[facility]ENTERAngel [place] (SBHLAB)[address] Platelet mean volume (Bld) [Entitic vol] 9.2 fL Normal 9.0-12.7 [facility] Comment on above: Performed By: #### L [id number], [id number] ####Catalogue Maker: UNA ARCE ([id number])[facility]ENTERAngel [place] (SBHLAB)[address] Platelets (Bld) [#/Vol] 313 10*3/uL Normal 140-440 [facility] Comment on above: Performed By: #### L [id number], [id number] ####Catalogue Maker: UNA ARCE ([id number])[facility]ENTERAngel [facility] (SBHLAB)[address] RBC (Bld) [#/Vol] 3.48 10*6/uL Low 4.40-5.90 [facility] Comment on above: Performed By: #### L [id number], [id number] ####Catalogue Maker: UNA ARCE ([id number])[facility] [place] (SBHLAB)[address] WBC (Bld) [#/Vol] 13.8 10*3/uL High 3.6-10.7 [facility] Comment on above: Performed By: #### L [id number], [id number] ####Catalogue Maker: UNA ARCE ([id number])[facility] (SBHLAB)[address] COMPREHENSIVE METABOLIC PANE Anant 04-11-2025 Albumin [Mass/Vol] 2.4 g/dL Low 3.4-4.8 [facility] Comment on above: Performed By: #### L AB103, [id number], LAB17 ####Catalogue Maker: UNA ARCE ([id number])[facility] [place] (SBHLAB)[address] ALP [Catalytic activity/Vol] 53 U/L Normal 40-150 [facility] Comment on above: Performed By: #### L AB103, [id number], LAB17 ####Catalogue Maker: UNA ARCE ([id number])[facility]A [facility] (SBHLAB)[address] ALT [Catalytic activity/Vol] U/L Normal <40 [facility] Comment on above: Performed By: #### L AB103, [id number], LAB17 ####Catalogue Maker: UNA ARCE ([id number])[facility] [place] (SBHLAB)[address] Anion gap [Moles/Vol] 10 mmol/L Normal 3-13 [facility] Comment on above: Performed By: #### L AB103, [id number], LAB17 ####Catalogue Maker: UNA ARCE ([id number])[facility] (SBHLAB)[address] [place] [address] [place] AST [Catalytic activity/Vol] 18 U/L Normal <34 [facility] Comment on above: Performed By: #### L AB103, [id number], LAB17 ####Catalogue Maker: UNA ARCE ([id number])[facility]NETTE BASHIRN (SBHLAB)[address] Bilirubin [Mass/Vol] 0.7 mg/dL Normal <1.2 [facility] Comment on above: Performed By: #### L AB103, [id number], LAB17 ####Catalogue Maker: UNA ARCE ([id number])[facility]ENTERAngel [place] (SBHLAB)[address] Calcium [Mass/Vol] 8.1 mg/dL Low 8.8-10.0 [facility] Comment on above: Performed By: #### L AB103, [id number], LAB17 ####Catalogue Maker: UNA ARCE ([id number])[facility]ENTERAngel [place] (SBHLAB)[address] Chloride [Moles/Vol] 94 mmol/L Low 98-107 [facility] Comment on above: Performed By: #### L AB103, [id number], LAB17 ####Catalogue Maker: UNA ARCE ([id number])LYNETTE BASHIRN (SBHLAB)[address] [place] [address] [place] CO2 [Moles/Vol] 35 mmol/L High 23-31 [facility] Comment on above: Performed By: #### L AB103, [id number], LAB17 ####Catalogue Maker: UNA ARCE ([id number])[facility]ENTERA [place] (SBHLAB)[address] [place] [address] [place] Creatinine [Mass/Vol] 1.55 mg/dL High 0.72-1.25 [facility] Comment on above: Performed By: #### L AB103, [id number], LAB17 ####Catalogue Maker: UNA ARCE ([id number])[facility] (SBHLAB)[address] GLOMERULAR FILTRATION RATE ML/MIN/1.73 SQ M.PREDICTED 42.5 mL/min/1.73m*2 Low >60.0 [facility] Comment on above: Result Comment: Calc ulation based on the Chronic Kidney Disease Epidemiology Collaboration (CKD-EPI) equation refit without adjustment for race Performed By: #### L AB103, [id number], LAB17 ####Catalogue Maker: UNA ARCE ([id number])[facility] (SBHLAB)[address] Glucose [Mass/Vol] 103 mg/dL Normal 82-115 [facility] Comment on above: Performed By: #### L AB103, [id number], LAB17 ####Catalogue Maker: UNA ARCE ([id number])[facility] (SBHLAB)[address] Potassium [Moles/Vol] 3.6 mmol/L Normal 3.5-5.1 [facility] Comment on above: Result Comment: [facility] potassium values may be up to 0.5 mmol/L lower than serum values. Performed By: #### L AB103, [id number], LAB17 ####Catalogue Maker: UNA ARCE ([id number])[facility] (SBHLAB)[address] Protein [Mass/Vol] 6.1 g/dL Low 6.4-8.3 [facility] Comment on above: Performed By: #### L AB103, [id number], LAB17 ####Catalogue Maker: UNA ARCE ([id number])[facility] (SBHLAB)[address] [place] [address] [place] Sodium [Moles/Vol] 139 mmol/L Normal 136-145 [facility] Comment on above: Performed By: #### L AB103, [id number], LAB17 ####Catalogue Maker: UNA ARCE ([id number])[facility] (SBHLAB)[address] [place] [address] [place] Urea nitrogen [Mass/Vol] 36 mg/dL High 9-23 [facility] Comment on above: Performed By: #### L [id number], [id number], [id number] ####Catalogue Maker: UNA ARCE ([id number])[facility] (SBHLAB)[address] Comprehensive metabolic 1998 panelon 04-11-2025 Albumin [Mass/Vol] 2.4 g/dL Low 3.4 - 4.8 g/dL [facility] ALP [Catalytic activity/Vol] 53 U/L 40 - 150 U/L [facility] ALT [Catalytic activity/Vol] U/L NINF - 40 U/L [facility] Anion gap [Moles/Vol] 10 mmol/L 3 - 13 mmol/L [facility] AST [Catalytic activity/Vol] 18 U/L NINF - 34 U/L [facility] Bilirubin [Mass/Vol] 0.7 mg/dL NINF - 1.2 mg/dL [facility] Calcium [Mass/Vol] 8.1 mg/dL Low 8.8 - 10. 0 mg/dL [facility] Chloride [Moles/Vol] 94 mmol/L Low 98 - 10 7 mmol/L [facility] CO2 [Moles/Vol] 35 mmol/L High 23 - 31 mmol/L [facility] Creatinine [Mass/Vol] 1.55 mg/dL High 0.72 - 1.25 mg/dL [facility] GFR/1.73 sq M.predicted (S/P/Bld) [Vol rate/Area] 42.5 mL/min Low - PINF [facility] Glucose [Mass/Vol] 103 mg/dL 82 - 115 mg/dL [facility] Interpretation and review of laboratory results Abnormal [facility] Potassium [Moles/Vol] 3.6 mmol/L 3.5 - 5.1 mmol/L [facility] Protein [Mass/Vol] 6.1 g/dL Low 6.4 - 8.3 g/dL [facility] Sodium [Moles/Vol] 139 mmol/L 136 - 145 mmol/L [facility] Urea nitrogen [Mass/Vol] 36 mg/dL High 9 - 23 mg/d L [facility] Laboratory - Chemistry and C hemistry - challengeon 04-11-2025 Magnesium [Mass/Vol] 1.7 mg/dL 1.6 - 2 .6 mg/dL [facility] - Hematology and Cell countson 04-11-2025 Anisocytosis Ql (Bld) Moderate Abnormal (none) [facility] Basophilic stippling LM Ql (Bld) Slight Abnormal (none) [facility] Basophils (Bld) [#/Vol] 0.1 10*3/uL 0.0 - 0.2 10*3/uL [facility] Basophils/100 WBC (Bld) 1 % 0 - 2 % [facility] Dacrocytes LM Ql (Bld) Rare Abnormal (none) [facility] Eosinophils (Bld) [#/Vol] 0.1 10*3/uL 0.0 - 0.5 10*3/uL [facility] Eosinophils/100 WBC (Bld) 1 % 0 - 6 % [facility] Hypochromia Ql (Bld) Slight Abnormal (none) [facility] Lymphocytes (Bld) [#/Vol] 1.4 10*3/uL 1.0 - 4.3 10*3/uL [facility] Lymphocytes/100 WBC (Bld) 10 % Low 15 - 45 % [facility] Monocytes (Bld) [#/Vol] 1.8 10*3/uL High 0.0 - 0.9 10*3/uL [facility] Monocytes/100 WBC (Bld) 13 % 5 - 13 % [facility] Neutrophils (Bld) [#/Vol] 10.5 10*3/uL High 1.8 - 7.5 10*3/uL [facility] Ovalocytes LM Ql (Bld) Slight Abnormal (none) [facility] Poikilocytosis LM Ql (Bld) Slight Abnormal (none) [facility] Polychromasia LM Ql (Bld) Slight Abnormal (none) [facility] RBC morphology finding Nom (Bld) abnormal [facility] Segmented neutrophils/100 WBC (Bld) 76 % 38 - 82 % [facility] Stomatocytes LM Ql (Bld) Slight Abnormal (none) [facility] Target cells LM Ql (Bld) Slight Abnormal (none) [facility] MAGNESIUMon 04-11-2025 Magnesium [Mass/Vol] 1.7 mg/dL Normal 1.6-2.6 [facility] Comment on above: Result Comment: ORDE R COMMENTS:Higher values can be expected in females during menses. Performed By: #### L AB103, [id number], LAB17 ####Catalogue Maker: UNA ARCE ([id number])[facility] [place] ([facility])[address] MANUAL DIFFERENTIAL (CELLAVI BANDAR)on 04-11-2025 ANISOCYTOSIS PRESENCE IN BLOOD BY LIGHT MICROSCOPY Moderate Abnormal (none) [facility] Comment on above: Performed By: #### L [id number], [id number] ####Catalogue Maker: UNA ARCE ([id number])[facility] [place] (SB[facility])[address] BAND NEUTROPHILS TOTAL PER COUNTED LEUKOCYTES BY MANUAL COUNT Normal [facility] Comment on above: Performed By: #### L [id number], [id number] ####Catalogue Maker: UNA ARCE ([id number])[facility] [place] (SB[facility]AB)[address] BASOPHILIC STIPPLING PRESENCE IN BLOOD BY LIGHT MICROSCOPY Slight Abnormal (none) [facility] Comment on above: Performed By: #### L [id number], [id number] ####Catalogue Maker: UNA ARCE ([id number])[facility] [place] (SB[facility]AB)[address] [place] [address] [place] BASOPHILS (10*3/UL) IN BLOOD-CELLAVISION 0.1 10*3/uL Normal 0.0-0.2 [facility] Comment on above: Performed By: #### L [id number], [id number] ####Catalogue Maker: UNA ARCE ([id number])[facility] [place] (SB[facility])[address] [place] [address] [place] BASOPHILS TOTAL PER COUNTED LEUKOCYTES BY MANUAL COUNT 1 Normal [facility] Comment on above: Performed By: #### L [id number], [id number] ####Catalogue Maker: UNA ARCE ([id number])[facility] [place] (SB[facility])[address] [place] [address] [place] BASOPHILS/100 LEUKOCYTES IN BLOOD-CELLAVISION 1 % Normal 0-2 [facility] Comment on above: Performed By: #### L [id number], [id number] ####Catalogue Maker: UNA ARCE ([id number])[facility] [place] (SBHLAB)[address] BLASTS TOTAL PER COUNTED LEUKOCYTES BY MANUAL COUNT Normal [facility] Comment on above: Performed By: #### L [id number], [id number] ####Catalogue Maker: UNA ARCE ([id number])[facility] [place] (SB[facility])[address] DACROCYTES PRESENCE IN BLOOD BY LIGHT MICROSCOPY Rare Abnormal (none) [facility] Comment on above: Performed By: #### L [id number], [id number] ####Catalogue Maker: UNA ARCE ([id number])[facility] [place] (SB[facility])[address] [place] [address] [place] EOSINOPHILS (10*3/UL) IN BLOOD-CELLAVISION 0.1 10*3/uL Normal 0.0-0.5 [facility] Comment on above: Performed By: #### L [id number], [id number] ####Catalogue Maker: UNA ARCE ([id number])[facility] [place] (SB[facility])[address] [place] [address] [place] EOSINOPHILS TOTAL PER COUNTED LEUKOCYTES BY MANUAL COUNT 1 Normal 0-1 [facility] Comment on above: Performed By: #### L [id number], [id number] ####Catalogue Maker: UNA ARCE ([id number])[facility] [place] (SB[facility])[address] [place] [address] [place] EOSINOPHILS/100 LEUKOCYTES IN BLOOD-CELLAVISION 1 % Normal 0-6 [facility] Comment on above: Performed By: #### L [id number], [id number] ####Catalogue Maker: UNA ARCE ([id number])[facility] [place] (SB[facility])[address] [place] [address] [place] HYPOCHROMIA (PRESENCE) IN BLOOD BY LIGHT MICROSCOPY Slight Abnormal (none) [facility] Comment on above: Performed By: #### L [id number], [id number] ####Catalogue Maker: UNA ARCE ([id number])[facility] (SBHLAB)[address] LYMPHOCYTES (10*3/UL) IN BLOOD-CELLAVISION 1.4 10*3/uL Normal 1.0-4.3 [facility] Comment on above: Performed By: #### L [id number], [id number] ####Catalogue Maker: UNA ARCE ([id number])[facility] (SBHLAB)[address] LYMPHOCYTES TOTAL PER COUNTED LEUKOCYTES BY MANUAL COUNT 10 Normal [facility] Comment on above: Performed By: #### L [id number], [id number] ####Catalogue Maker: UNA ARCE ([id number])[facility] (SBHLAB)[address] LYMPHOCYTES/100 LEUKOCYTES IN BLOOD-CELLAVISION 10 % Low 15-45 [facility] Comment on above: Performed By: #### L [id number], [id number] ####Catalogue Maker: UNA ACRE ([id number])[facility] (SBHLAB)[address] METAMYELOCYTES TOTAL PER COUNTED LEUKOCYTES BY MANUAL COUNT Normal [facility] Comment on above: Performed By: #### L [id number], [id number] ####Catalogue Maker: UNA ARCE ([id number])[facility] [place] ([facility])[address] [place] [address] [place] MONOCYTES (10*3/UL) IN BLOOD-CELLAVISION 1.8 10*3/uL High 0.0-0.9 [facility] Comment on above: Performed By: #### L [id number], [id number] ####Catalogue Maker: UNA ARCE ([id number])[facility] [place] (SBHLAB)[address] [place] [address] [place] MONOCYTES TOTAL PER COUNTED LEUKOCYTES BY MANUAL COUNT 13 Normal [facility] Comment on above: Performed By: #### L [id number], [id number] ####Catalogue Maker: UNA STAUFFERMELANIE ([id number])[facility] (SBHLAB)[address] [place] [address] [place] MONOCYTES/100 LEUKOCYTES IN BLOOD-LUCIANA 13 % Normal -13 [facility] Comment on above: Performed By: #### L [id number], [id number] ####Catalogue Maker: UNA ARCE ([id number])[facility] [place] (SBHLAB)[address] MYELOCYTES COUNTED BY MANUAL COUNT Normal [facility] Comment on above: Performed By: #### L [id number], [id number] ####Catalogue Maker: UNA ARCE ([id number])[facility] [place] (SBHLAB)[address] [place] [address] [place] NEUTROPHILS TOTAL PER COUNTED LEUKOCYTES BY MANUAL COUNT 79 Normal [facility] Comment on above: Performed By: #### L [id number], [id number] ####Catalogue Maker: UNA ARCE ([id number])[facility] [place] (SBHLAB)[address] [place] [address] [place] OVALOCYTES PRESENCE IN BLOOD BY LIGHT MICROSCOPY Slight Abnormal (none) [facility] Comment on above: Performed By: #### L [id number], [id number] ####Catalogue Maker: UNA ARCE ([id number])[facility] (SBHLAB)[address] [place] [address] [place] POIKILOCYTOSIS (PRESENCE) IN BLOOD BY LIGHT MICROSCOPY Slight Abnormal (none) [facility] Comment on above: Performed By: #### L [id number], [id number] ####Catalogue Maker: UNA ARCE ([id number])[facility] (SBHLAB)[address] [place] [address] [place] POLYCHROMASIA IN BLOOD BY LIGHT MICROSCOPY Slight Abnormal (none) [facility] Comment on above: Performed By: #### L [id number], [id number] ####Catalogue Maker: UNA ARCE ([id number])[facility] [place] (SB[facility])[address] [place] [address] [place] PROMYELOCYTES TOTAL PER COUNTED LEUKOCYTES BY MANUAL COUNT Normal [facility] Comment on above: Performed By: #### L [id number], [id number] ####Catalogue Maker: UNA ARCE ([id number])[facility] [place] (SB[facility])[address] [place] [address] [place] RBC MORPHOLOGY IN BLOOD abnormal Normal [facility] Comment on above: Performed By: #### L [id number], [id number] ####Catalogue Maker: UNA ARCE ([id number])[facility] [place] ([facility])[address] [place] [address] [place] SEGMENTED NEUTROPHILS (10*3/UL) IN BLOOD-CELLAVISION 10.5 10*3/uL High 1.8-7.5 [facility] Comment on above: Performed By: #### L [id number], [id number] ####Catalogue Maker: UNA ARCE ([id number])[facility] [place] (SB[facility])[address] [place] [address] [place] SEGMENTED NEUTROPHILS/100 LEUKOCYTES-CE 76 % Normal 38-82 [facility] Comment on above: Performed By: #### L [id number], [id number] ####Catalogue Maker: UNA ARCE ([id number])[facility] [place] (SB[facility])[address] [place] [address] [place] STOMATOCYTES IN BLOOD BY LIGHT MICROSCOPY Slight Abnormal (none) [facility] Comment on above: Performed By: #### L [id number], [id number] ####Catalogue Maker: UNA ARCE ([id number])[facility] [place] (SB[facility])[address] [place] [address] [place] TARGET CELLS IN BLOOD BY LIGHT MICROSCOPY Slight Abnormal (none) [facility] Comment on above: Performed By: #### L [id number], [id number] ####Catalogue Maker: UNA ARCE ([id number])[facility] [place] [facility] UNCLASSIFIED CELLS TOTAL PER COUNTED LEUKOCYTES BY MANUAL COUNT Normal [facility] Comment on above: Performed By: #### L [id number], [id number] ####Catalogue Maker: UNA ARCE ([id number])[facility] [place] ([facility] VARIANT LYMPHOCYTES TOTAL PER COUNTED LEUKOCYTES BY MANUAL COUNT Normal [facility] Comment on above: Performed By: #### L [id number], [id number] ####Catalogue Maker: UNA ARCE ([id number])[facility] ([facility])[address] [place] [address] [place] Magnesium [Mass/Vol]on 04-11 [facility] No Panel Informationon 04-11 Basophils Manual 1 [facility] Eosinophils Manual 1 0 - 1 [facility] Interpretation and review of laboratory results Abnormal [facility] Lymphocytes Manual 10 [facility] Monocytes Manual 13 [facility]th Neutrophils Manual 79 [facility] Interpretation and review of laboratory results Normal [facility] PHOSPHORUSon 04-11-2025 Phosphate [Mass/Vol] 2.5 mg/dL Normal 2.3-4.7 [facility] Comment on above: Performed By: #### L [id number], [id number], LAB17 ####Catalogue Maker: UNA ARCE ([id number])[facility] [place] [address] [place] Phosphate [Moles/Vol]on Phosphate [Mass/Vol] 2.5 mg/dL 2.3 - 4 .7 mg/dL [facility] Progress Noteon 04-11-2025 Progress Note Normal [facility] Progress Note Normal [facility] Progress Note Normal [facility] Progress Note Normal [facility] XR Chest Single viewon 04-11 [facility] RADI[facility] Radiology Study observation (narrative) [facility] XR Chest Single viewOrdered By: Katalina Corona on 04-11-2025 [facility] Work Phone: [phone] 04-10-2025 [id number] Normal [facility] CBC W Auto Differential pane l (Bld)on 04-10-2025 Erythrocyte distribution width (RBC) [Ratio] 22.9 % High 11.5 - 15.0 % [facility] Hematocrit (Bld) [Volume fraction] 26.1 % Low 40.0 - 52.0 % [facility] Hemoglobin (Bld) [Mass/Vol] 7.2 g/dL Low 13.0 - 18.0 g/dL [facility] Interpretation and review of laboratory results Abnormal [facility] MCH (RBC) [Entitic mass] 22.6 pg Low 26. 0 - 34.0 pg [facility] MCHC (RBC) [Mass/Vol] 27.6 % Low 30.5 - 36.0 % [facility] MCV (RBC) [Entitic vol] 82.1 fL 77.0 - 99.0 fL [facility] Platelet mean volume (Bld) [Entitic vol] 9.1 fL 9.0 - 12.7 fL [facility] Platelets (Bld) [#/Vol] 294 10*3/uL 140 - 440 10*3/uL [facility] RBC (Bld) [#/Vol] 3.18 10*6/uL Low 4.40 - 5.9 0 10*6/uL [facility] WBC (Bld) [#/Vol] 12.4 10*3/uL High 3.6 - 10.7 10*3/uL [facility] CBC WITH AUTO DIFFERENTIALon 04-10-2025 Erythrocyte distribution width (RBC) [Ratio] 22.9 % High 11.5-15.0 [facility] Comment on above: Performed By: #### L [id number], [id number] ####Catalogue Maker: UNA ARCE ([id number])[facility] ([facility])[address] [place] [address] Hematocrit (Bld) [Volume fraction] 26.1 % Low 40.0-52.0 [facility] Comment on above: Performed By: #### L [id number], [id number] ####Catalogue Maker: UNA ARCE ([id number])[facility] (SBHLAB)[address] Hemoglobin (Bld) [Mass/Vol] 7.2 g/dL Low 13.0-18.0 [facility] Comment on above: Performed By: #### L [id number], [id number] ####Catalogue Maker: UNA ARCE ([id number])[facility] (SBHLAB)[address] MCH (RBC) [Entitic mass] 22.6 pg Low 26.0-34.0 [facility] Comment on above: Performed By: #### L [id number], [id number] ####Catalogue Maker: UNA ARCE ([id number])[facility] [place] (SBHLAB)[address] MCHC 27.6 % Low 30.5-36.0 [facility] Comment on above: Performed By: #### L [id number], [id number] ####Catalogue Maker: UNA ARCE ([id number])[facility] SACN[facility] (SBHLAB)[address] MCV (RBC) [Entitic vol] 82.1 fL Normal 77.0-99.0 [facility] Comment on above: Performed By: #### L [id number], [id number] ####Catalogue Maker: UNA ARCE ([id number])[facility] [place] (SBHLAB)[address] Platelet mean volume (Bld) [Entitic vol] 9.1 fL Normal 9.0-12.7 [facility] Comment on above: Performed By: #### L [id number], [id number] ####Catalogue Maker: UNA ARCE ([id number])[facility] BASHIRN (SBHLAB)[address] Platelets (Bld) [#/Vol] 294 10*3/uL Normal 140-440 [facility] Comment on above: Performed By: #### L [id number], [id number] ####Catalogue Maker: UNA ARCE ([id number])[facility] (SBHLAB)[address] RBC (Bld) [#/Vol] 3.18 10*6/uL Low 4.40-5.90 [facility] Comment on above: Performed By: #### L [id number], [id number] ####Catalogue Maker: UNA ARCE ([id number])[facility] (SBHLAB)[address] WBC (Bld) [#/Vol] 12.4 10*3/uL High 3.6-10.7 [facility] Comment on above: Performed By: #### L [id number], [id number] ####Catalogue Maker: UNA ARCE ([id number])[facility] (SBHLAB)[address] COMPREHENSIVE METABOLIC PANE Anant 04-10-2025 Albumin [Mass/Vol] 2.2 g/dL Low 3.4-4.8 [facility] Comment on above: Performed By: #### L AB103, [id number], LAB17 ####Catalogue Maker: UNA ARCE ([id number])[facility] (SBHLAB)[address] ALP [Catalytic activity/Vol] 50 U/L Normal 40-150 [facility] Comment on above: Performed By: #### L AB103, [id number], LAB17 ####Catalogue Maker: UNA ARCE ([id number])[facility] (SBHLAB)[address] ALT [Catalytic activity/Vol] U/L Normal <40 [facility] Comment on above: Performed By: #### L AB103, [id number], LAB17 ####Catalogue Maker: UNA ARCE ([id number])[facility] [place] (SBHLAB)[address] Anion gap [Moles/Vol] 12 mmol/L Normal 3-13 [facility] Comment on above: Performed By: #### L AB103, [id number], LAB17 ####Catalogue Maker: UNA ARCE ([id number])[facility]Angel BASHIRN (SBHLAB)[address] AST [Catalytic activity/Vol] 16 U/L Normal <34 [facility] Comment on above: Performed By: #### L AB103, [id number], LAB17 ####Catalogue Maker: UNA MOHRCER ([id number])[facility] [place] (SBHLAB)[address] Bilirubin [Mass/Vol] 0.6 mg/dL Normal <1.2 [facility] Comment on above: Performed By: #### L AB103, [id number], LAB17 ####Catalogue Maker: UNA ARCE ([id number])[facility]ENTERAngel SANCHEZGUADALUPE [facility] HOSPITALN (SBHLAB)[address] Calcium [Mass/Vol] 8.0 mg/dL Low 8.8-10.0 [facility] Comment on above: Performed By: #### L AB103, [id number], LAB17 ####Catalogue Maker: UNA ARCE ([id number])[facility]Angel [place] (SBHLAB)[address] [place] [address] [place] Chloride [Moles/Vol] 95 mmol/L Low 98-107 [facility] Comment on above: Performed By: #### L AB103, [id number], LAB17 ####Catalogue Maker: UNA ARCE ([id number])[facility] [place] ([facility])[address] CO2 [Moles/Vol] 35 mmol/L High 23-31 [facility] Comment on above: Performed By: #### L AB103, [id number], LAB17 ####Catalogue Maker: UNA ARCE ([id number])[facility]Angel [place] ([facility])[address] Creatinine [Mass/Vol] 1.65 mg/dL High 0.72-1.25 [facility] Comment on above: Performed By: #### L AB103, [id number], LAB17 ####Catalogue Maker: UNA BERMUDEZLevonMELANIE ([id number])[facility] (SB[facility])[address] GLOMERULAR FILTRATION RATE ML/MIN/1.73 SQ M.PREDICTED 39.4 mL/min/1.73m*2 Low >60.0 [facility] Comment on above: Result Comment: Calc ulation based on the Chronic Kidney Disease Epidemiology Collaboration (CKD-EPI) equation refit without adjustment for race Performed By: #### L ABLilly, [id number], LAB17 ####Catalogue Maker: UNA ARCE ([id number])[facility] ([facility])[address] Glucose [Mass/Vol] 98 mg/dL Normal 82-115 [facility] Comment on above: Performed By: #### L AB103, GHR600, LAB17 ####Catalogue Maker: UNA STAUFFERMELANIE ([id number])[facility] ([facility])[address] Potassium [Moles/Vol] 3.2 mmol/L Low 3.5-5.1 [facility] Comment on above: Result Comment: [facility] potassium values may be up to 0.5 mmol/L lower than serum values. Performed By: #### L AB103, [id number], LAB17 ####Catalogue Maker: UNA ARCE ([id number])[facility] ([facility])[address] Protein [Mass/Vol] 5.5 g/dL Low 6.4-8.3 [facility] Comment on above: Performed By: #### L AB103, [id number], LAB17 ####Catalogue Maker: UNA ARCE ([id number])[facility] LAURAGUADALU[facility]N (SBHLAB)[address] Sodium [Moles/Vol] 142 mmol/L Normal 136-145 [facility] Comment on above: Performed By: #### L AB103, [id number], LAB17 ####Catalogue Maker: UNA ARCE ([id number])[facility] ([facility])[address] Urea nitrogen [Mass/Vol] 32 mg/dL High 9-23 [facility] Comment on above: Performed By: #### L AB103, AZF372, LAB17 ####Catalogue Maker: UNA ARCE ([id number])[facility] (SBHL[facility])[address] Comprehensive metabolic 1998 panelon 04-10-2025 Albumin [Mass/Vol] 2.2 g/dL Low 3.4 - 4.8 g/dL [facility] ALP [Catalytic activity/Vol] 50 U/L 40 - 150 U/L [facility] ALT [Catalytic activity/Vol] U/L NINF - 40 U/L [facility] Anion gap [Moles/Vol] 12 mmol/L 3 - 13 mmol/L [facility] AST [Catalytic activity/Vol] 16 U/L [facility] U/L [facility] Bilirubin [Mass/Vol] 0.6 mg/dL NINF - 1.2 mg/dL [facility] Calcium [Mass/Vol] 8 mg/dL Low 8.8 - 10. 0 mg/dL [facility] Chloride [Moles/Vol] 95 mmol/L Low 98 - 10 7 mmol/L [facility] CO2 [Moles/Vol] 35 mmol/L High 23 - 31 mmol/L [facility] Creatinine [Mass/Vol] 1.65 mg/dL High 0.72 - 1.25 mg/dL [facility] GFR/1.73 sq M.predicted (S/P/Bld) [Vol rate/Area] 39.4 mL/min Low - PINF [facility] Glucose [Mass/Vol] 98 mg/dL 82 - 115 mg/dL [facility] Interpretation and review of laboratory results Abnormal [facility] Potassium [Moles/Vol] 3.2 mmol/L Low 3.5 - 5.1 mmol/L [facility] Protein [Mass/Vol] 5.5 g/dL Low 6.4 - 8.3 g/dL [facility] Sodium [Moles/Vol] 142 mmol/L 136 - 145 mmol/L [facility] Urea nitrogen [Mass/Vol] 32 mg/dL High 9 - 23 mg/d L [facility] Laboratory - Chemistry and C hemistry - challengeon 04-10-2025 Magnesium [Mass/Vol] 1.7 mg/dL 1.6 - 2 .6 mg/dL [facility] Laboratory - Hematology and Cell countson 04-10-2025 Anisocytosis Ql (Bld) Slight Abnormal (none) [facility] Band form neutrophils (Bld) [#/Vol] 0.2 10*3/uL High NINF - 0.0 10*3/uL [facility] Band form neutrophils/100 WBC (Bld) 2 % High NINF - 0 % [facility] Basophils (Bld) [#/Vol] 0.5 10*3/uL High 0.0 - 0.2 10*3/uL [facility] Basophils/100 WBC (Bld) 4 % High 0 - 2 % [facility] Eosinophils (Bld) [#/Vol] 0.5 10*3/uL 0.0 - 0.5 10*3/uL [facility] Eosinophils/100 WBC (Bld) 4 % 0 - 6 % [facility] Lymphocytes (Bld) [#/Vol] 0.9 10*3/uL Low 1.0 - 4.3 10*3/uL [facility] Lymphocytes/100 WBC (Bld) 7 % Low 15 - 45 % [facility] Monocytes (Bld) [#/Vol] 0.5 10*3/uL 0.0 - 0.9 10*3/uL [facility] Monocytes/100 WBC (Bld) 4 % Low 5 - 13 % [facility] Myelocytes (Bld) [#/Vol] 0.1 10*3/uL High SELENE F - 0.0 10*3/uL [facility] Myelocytes/100 WBC (Bld) 1 % High NINF - 0 % [facility] Neutrophils (Bld) [#/Vol] 9.9 10*3/uL High 1.8 - 7.5 10*3/uL [facility] Poikilocytosis LM Ql (Bld) Slight Abnormal (none) [facility] RBC morphology finding Nom (Bld) abnormal [facility] Segmented neutrophils/100 WBC (Bld) 78 % 38 - 82 % [facility] Stomatocytes LM Ql (Bld) Moderate Abnormal (none) [facility] MAGNESIUMon 04-10-2025 Magnesium [Mass/Vol] 1.7 mg/dL Normal 1.6-2.6 [facility] Comment on above: Result Comment: YARELI [place] COMMENTS:Higher values can be expected in females during menses. Performed By: #### L AB103, [id number], LAB17 ####Catalogue Maker: UNA ARCE ([phone])[facility] ([facility])[address] MANUAL DIFFERENTIAL (CELLAVI BANDAR)on 04-10-2025 ANISOCYTOSIS PRESENCE IN BLOOD BY LIGHT MICROSCOPY Slight Abnormal (none) [facility] Comment on above: Performed By: #### L [id number], [id number] ####Catalogue Maker: UNA ARCE ([id number])[facility] BAND NEUTROPHILS TOTAL PER COUNTED LEUKOCYTES BY MANUAL COUNT 2 Normal [facility] Comment on above: Performed By: #### L [id number], [id number] ####Catalogue Maker: UNA ARCE ([id number])[facility] ([facility])[address] BANDS (10*3/UL) IN BLOOD-CELLAVISION 0.2 10*3/uL High <=0.0 [facility] Comment on above: Performed By: #### L [id number], [id number] ####Catalogue Maker: UNA ARCE ([id number])[facility] [place] ([facility])[address] BASOPHILS (10*3/UL) IN BLOOD-CELLAVISION 0.5 10*3/uL High 0.0-0.2 [facility] Comment on above: Performed By: #### L [id number], [id number] ####Catalogue Maker: UNA ARCE ([phone])[facility] [place] ([facility])[address] [place] [address] [place] BASOPHILS TOTAL PER COUNTED LEUKOCYTES BY MANUAL COUNT 4 Normal [facility] Comment on above: Performed By: #### L [id number], [id number] ####Catalogue Maker: UNA ARCE ([id number])[facility] [place] (SB[facility]AB)[address] [place] [address] [place] BASOPHILS/100 LEUKOCYTES IN BLOOD-CELLAVISION 4 % High 0-2 [facility] Comment on above: Performed By: #### L [id number], [id number] ####Catalogue Maker: UNA ARCE ([id number])[facility] [place] ([facility])[address] [place] [address] [place] BLASTS TOTAL PER COUNTED LEUKOCYTES BY MANUAL COUNT [facility] Comment on above: Performed By: #### L [id number], [id number] ####Catalogue Maker: UNA ARCE ([id number])[facility] [place] ([facility])[address] [place] [address] [place] EOSINOPHILS (10*3/UL) IN BLOOD-CELLAVISION 0.5 10*3/uL Normal 0.0-0.5 [facility] Comment on above: Performed By: #### L [id number], [id number] ####Catalogue Maker: UNA ARCE ([id number])[facility] [place] ([facility])[address] [place] [address] [place] EOSINOPHILS TOTAL PER COUNTED LEUKOCYTES BY MANUAL COUNT 4 High 0-1 [facility] Comment on above: Performed By: #### L [id number], [id number] ####Catalogue Maker: UNA ARCE ([id number])[facility] [place] ([facility])[address] [place] [address] [place] EOSINOPHILS/100 LEUKOCYTES IN BLOOD-CELLAVISION 4 % Normal 0-6 [facility] Comment on above: Performed By: #### L [id number], [id number] ####Catalogue Maker: UNA ARCE ([id number])[facility] [place] ([facility])[address] [place] [address] [place] LYMPHOCYTES (10*3/UL) IN BLOOD-CELLAVISION 0.9 10*3/uL Low 1.0-4.3 [facility] Comment on above: Performed By: #### L [id number], [id number] ####Catalogue Maker: UNA ARCE ([id number])[facility] [place] ([facility])[address] LYMPHOCYTES TOTAL PER COUNTED LEUKOCYTES BY MANUAL COUNT 7 Normal [facility] Comment on above: Performed By: #### L [id number], [id number] ####Catalogue Maker: UNA ARCE ([id number])[facility] [place] ([facility])[address] [place] [address] [place] LYMPHOCYTES/100 LEUKOCYTES IN BLOOD-CELLAVISION 7 % Low 15-45 [facility] Comment on above: Performed By: #### L [id number], [id number] ####Catalogue Maker: UNA ARCE ([id number])[facility] [place] ([facility])[address] METAMYELOCYTES TOTAL PER COUNTED LEUKOCYTES BY MANUAL COUNT Normal [facility] Comment on above: Performed By: #### L [id number], [id number] ####Catalogue Maker: UNA STAUFFERMELANIE ([id number])[facility] [place] ([facility])[address] [place] [address] [place] MONOCYTES (10*3/UL) IN BLOOD-CELLAVISION 0.5 10*3/uL Normal 0.0-0.9 [facility] Comment on above: Performed By: #### L [id number], [id number] ####Catalogue Maker: UNA ARCE ([id number])[facility] [place] ([facility])[address] [place] [address] [place] MONOCYTES TOTAL PER COUNTED LEUKOCYTES BY MANUAL COUNT 4 Normal [facility] Comment on above: Performed By: #### L [id number], [id number] ####Catalogue Maker: UNA ARCE ([id number])[facility] [place] ([facility])[address] [place] [address] [place] MONOCYTES/100 LEUKOCYTES IN BLOOD-LUCIANA 4 % Low 5-13 [facility] Comment on above: Performed By: #### L [id number], [id number] ####Catalogue Maker: UNA ARCE ([id number])[facility] [place] ([facility])[address] [place] [address] [place] MYELOCYTES (10*3/UL) IN BLOOD-CELLAVISION 0.1 10*3/uL High <=0.0 [facility] Comment on above: Performed By: #### L [id number], [id number] ####Catalogue Maker: UNA ARCE ([id number])[facility] [place] ([facility])[address] [place] [address] [place] MYELOCYTES COUNTED BY MANUAL COUNT 1 Normal [facility] Comment on above: Performed By: #### L [id number], [id number] ####Catalogue Maker: UNA ARCE ([id number])[facility] [place] ([facility])[address] [place] [address] [place] MYELOCYTES/100 LEUKOCYTES IN BLOOD-CELLAVISION 1 % High <=0 [facility] Comment on above: Performed By: #### L [id number], [id number] ####Catalogue Maker: UNA ARCE ([id number])[facility] [place] ([facility])[address] [place] [address] [place] NEUTROPHILS BAND FORM/100 LEUKOCYTES IN BLOOD-CELLAVISI 2 % High <=0 [facility] Comment on above: Performed By: #### L [id number], [id number] ####Catalogue Maker: UNA ARCE ([id number])[facility] [place] ([facility])[address] [place] [address] [place] NEUTROPHILS TOTAL PER COUNTED LEUKOCYTES BY MANUAL COUNT 79 Normal [facility] Comment on above: Performed By: #### L [id number], [id number] ####Catalogue Maker: UNA ARCE ([id number])[facility] [place] (SBHLAB)[address] [place] [address] [place] POIKILOCYTOSIS (PRESENCE) IN BLOOD BY LIGHT MICROSCOPY Slight Abnormal (none) [facility] Comment on above: Performed By: #### L [id number], [id number] ####Catalogue Maker: UNA ARCE ([id number])[facility] [place] ([facility])[address] [place] [address] [place] PROMYELOCYTES TOTAL PER COUNTED LEUKOCYTES BY MANUAL COUNT Normal [facility] Comment on above: Performed By: #### L [id number], [id number] ####Catalogue Maker: UNA ARCE ([id number])[facility] [place] ([facility])[address] [place] [address] [place] RBC MORPHOLOGY IN BLOOD abnormal Normal [facility] Comment on above: Performed By: #### L [id number], [id number] ####Catalogue Maker: UNA ARCE ([id number])[facility] [place] ([facility])[address] [place] [address] [place] SEGMENTED NEUTROPHILS (10*3/UL) IN BLOOD-CELLAVISION 9.9 10*3/uL High 1.8-7.5 [facility] Comment on above: Performed By: #### L [id number], [id number] ####Catalogue Maker: UNA ARCE ([id number])[facility] [place] ([facility])[address] [place] [address] [place] SEGMENTED NEUTROPHILS/100 LEUKOCYTES-CE 78 % Normal 38-82 [facility] Comment on above: Performed By: #### L [id number], [id number] ####Catalogue Maker: UNA ARCE ([id number])[facility] [place] ([facility])[address] [place] [address] [place] STOMATOCYTES IN BLOOD BY LIGHT MICROSCOPY Moderate Abnormal (none) [facility] Comment on above: Performed By: #### L [id number], [id number] ####Catalogue Maker: UNA ARCE ([id number])[facility] ([facility])[address] UNCLASSIFIED CELLS TOTAL PER COUNTED LEUKOCYTES BY MANUAL COUNT Normal [facility] Comment on above: Performed By: #### L [id number], [id number] ####Catalogue Maker: UNA ARCE ([id number])[facility] ([facility])[address] VARIANT LYMPHOCYTES TOTAL PER COUNTED LEUKOCYTES BY MANUAL COUNT Normal [facility] Comment on above: Performed By: #### L [id number], [id number] ####Catalogue Maker: UNA ARCE ([id number])[facility] ([facility])[address] Magnesium [Mass/Vol]on 04-10 [facility] No Panel Informationon 04-10 Bands Manual 2 [facility] Basophils Manual 4 [facility] Eosinophils Manual 4 High 0 - 1 [facility] Interpretation and review of laboratory results Abnormal [facility] Lymphocytes Manual 7 [facility] Monocytes Manual 4 [facility] Myelocytes Manual 1 [facility] ealth Neutrophils Manual 79 [facility] Interpretation and review of laboratory results Normal [facility] PHOSPHORUSon 04-10-2025 Phosphate [Mass/Vol] 2.6 mg/dL Normal 2.3-4.7 [facility] Comment on above: Performed By: #### L AB103, [id number], LAB17 ####Catalogue Maker: UNA ARCE ([id number])[facility] ([facility])[address] [place] [address] [place] Phosphate [Moles/Vol]on Phosphate [Mass/Vol] 2.6 mg/dL 2.3 - 4 .7 mg/dL [facility] Progress Noteon 04-10-2025 Progress Note Normal [facility] Progress Note Normal [facility] Progress Note Normal [facility] Progress Note Will assume care as patient is being transferred out of ICU. D/w Dr Lewis via secure chat Normal [facility] Progress Note Normal [facility] Progress Note Normal [facility] [id number] 04-09-2025 [id number] Normal [facility] [id number] Normal [facility] BODY FLUID CELL COUNT WITH R EFLEX DIFFon 04-09-2025 RBC, BODY FLUID (AUTOMATED) <0.002 High 0.000 [facility] Comment on above: Performed By: #### L AB209, [id number] ####Catalogue Maker: UNA ARCE ([id number])[facility] (SB[facility])[address] [place] [address] WBC, BODY FLUID (AUTOMATED) 0.341 x10*3/ul High <=0.005 [facility] Comment on above: Performed By: #### L AB209, [id number] ####Catalogue Maker: UNA ARCE ([id number])[facility] ([facility])[address] [place] [address] RBC, BODY FLUID (AUTOMATED) <0.002 High 0.000 [facility] Comment on above: Performed By: #### L AB209, [id number] ####Catalogue Maker: UNA ARCE ([id number])[facility] ([facility])[address] [place] [address] TYPE OF BODY FLUID Pleural Fluid Normal [facility] Comment on above: Performed By: #### L AB209, [id number] ####Catalogue Maker: UNA ARCE ([id number])[facility] ([facility])[address] [place] [address] Result Comment: YARELI [place] COMMENTS:This test was developed and its performance characteristics determined by [employer]. It has not been cleared or approved by the [place] Food and Drug Administration. This test was performed in a CLIA certified laboratory and is intended for clinical purposes.Exudates are defined as meeting one of the following criteria: (a) Pleural ymmyp-bl-jhhde protein ratio of >0.5, (b) pleural qijoc-lc-wonvh LDH ratio of >0.6, or (c)a pleural fluid LDH activity that is >2/3 the upper limit of a normal serum LDH activity (Light???s criteria). Performed By: #### L AB188, [id number], [id number], [id number] ####Catalogue Maker: ANAHY AVILA ([id number])[address] Result Comment: ORDE R COMMENTS:This test was developed and its performance characteristics determined by [employer]. It has not been cleared or approved [...] malignancy, empyema, and/or rheumatoid disease. Result Comment: ORDE R COMMENTS:This test was developed and its performance characteristics determined by [employer]. It has not been cleared or approved by the [place] Food and Drug Administration. This test was performed in a CLIA certified laboratory and is intended for clinical purposes.Pleural xjcqi-wa-numyk protein ratio of >0.5 is one of Light???s criteria for an exudate. Heart failure associated misclassifications (by Light???s criteria) may be differentiated as transudative effusions by subsequently evaluating a qhlgq-mg-wcauwhq albumin gradient (>1.2 g/dL) and/or a yvatb-zx-qbljb protein gradient (>3.1 g/dL). Result Comment: ORDE R COMMENTS:This test was developed and its performance characteristics determined by [employer]. It has not been cleared or approved by the US Food and Drug Administration. This test was performed in a CLIA certified laboratory and is intended for clinical purposes. WBC, BODY FLUID (AUTOMATED) 0.112 x10*3/ul High <=0.005 [facility] [employer] [facility] Comment on above: Performed By: #### L AB209, [id number] ####Catalogue Maker: UNA ARCE ([id number])[facility] [place] ([facility])[address] [place] [address] [place] BODY FLUID DIFFERENTIALon CELLS COUNTED TOTAL (#) IN BODY FLUID 100 Normal [facility] Comment on above: Performed By: #### L AB209, [id number] ####Catalogue Maker: UNA ARCE ([id number])[facility] [place] ([facility])[address] [place] [address] [place] LYMPHOCYTES/100 LEUKOCYTES IN BODY FLUID BY MAN CT 51 % Normal [facility] Comment on above: Performed By: #### L AB209, [id number] ####Catalogue Maker: UNA ARCE ([id number])[facility] [place] ([facility])[address] [place] [address] [place] MONOCYTES+MACROPHAGES/10 0 WBC IN BODY FLUID BY MAN CT 36 % Normal [facility] Comment on above: Performed By: #### L AB209, [id number] ####Catalogue Maker: UNA ARCE ([id number])[facility] [place] ([facility])[address] [place] [address] [place] Neutrophils/100 WBC (Bld) 13 % Normal [facility] Comment on above: Performed By: #### L AB209, [id number] ####Catalogue Maker: UNA ARCE ([id number])[facility] [place] ([facility])[address] [place] [address] [place] CELLS COUNTED TOTAL (#) IN BODY FLUID 100 Normal [facility] Comment on above: Performed By: #### L AB209, [id number] ####Catalogue Maker: UNA ARCE ([id number])[facility] [place] ([facility])[address] [place] [address] [place] LYMPHOCYTES/100 LEUKOCYTES IN BODY FLUID BY MAN CT 31 % Normal [facility] Comment on above: Performed By: #### L AB209, [id number] ####Catalogue Maker: UNA ARCE ([id number])[facility] [place] ([facility])[address] [place] [address] [place] MESOTHELIAL CELLS/100 LEUKOCYTES IN BODY FLUID BY MANUAL COUNT 2 % Normal [facility] Comment on above: Performed By: #### L AB209, [id number] ####Catalogue Maker: UNA YAZMIN ([id number])[facility] [place] ([facility])[address] MONOCYTES+MACROPHAGES/10 0 WBC IN BODY FLUID BY MAN CT 37 % Normal [facility] Comment on above: Performed By: #### L AB209, [id number] ####Catalogue Maker: UNA BERMUDEZPEDRO ([id number])[facility]ENTERA BARBGUADALUPE [facility] HOSPITALN (SBHLAB)[address] Neutrophils/100 WBC (Bld) 30 % Normal [facility] Comment on above: Performed By: #### L AB209, [id number] ####Catalogue Maker: UNA BERMUDEZPEDRO ([id number])[facility]A [facility] (SB[facility]AB)[address] CBC W Auto Differential pane l (Bld)Ordered By: Jg Sarabia on 04-09-2025 Erythrocyte distribution width (RBC) [Ratio] 21.8 % High 11.5 - 15.0 % [facility] Hematocrit (Bld) [Volume fraction] 27.7 % Low 40.0 - 52.0 % [facility] Hemoglobin (Bld) [Mass/Vol] 7.5 g/dL Low 13.0 - 18.0 g/dL [facility] MCH (RBC) [Entitic mass] 22.6 pg Low 26. 0 - 34.0 pg [facility] MCHC (RBC) [Mass/Vol] 27.1 % Low 30.5 - 36.0 % [facility] MCV (RBC) [Entitic vol] 83.4 fL 77.0 - 99.0 fL [employer] Platelet mean volume (Bld) [Entitic vol] 9.4 fL 9.0 - 12.7 fL [facility] Platelets (Bld) [#/Vol] 279 10*3/uL 140 - 440 10*3/uL [facility] RBC (Bld) [#/Vol] 3.32 10*6/uL Low 4.40 - 5.9 0 10*6/uL [facility] WBC (Bld) [#/Vol] 11.2 10*3/uL High 3.6 - 10.7 10*3/uL [facility] CBC WITH AUTO DIFFERENTIALon 04-09-2025 Erythrocyte distribution width (RBC) [Ratio] 21.8 % High 11.5-15.0 [facility] Comment on above: Performed By: #### L [id number], [id number] ####Catalogue Maker: UNA ARCE ([id number])[facility] ([facility])[address] Hematocrit (Bld) [Volume fraction] 27.7 % Low 40.0-52.0 [facility] Comment on above: Performed By: #### L [id number], [id number] ####Catalogue Maker: UNA ARCE ([id number])[facility] (SBAB)[address] [place] [address] Hemoglobin (Bld) [Mass/Vol] 7.5 g/dL Low 13.0-18.0 [facility] Comment on above: Performed By: #### L [id number], [id number] ####Catalogue Maker: UNA ARCE ([id number])[facility] ([facility])[address] MCH (RBC) [Entitic mass] 22.6 pg Low 26.0-34.0 [facility] Comment on above: Performed By: #### L NL2407, [id number] ####Catalogue Maker: UNA ARCE ([id number])[facility] ([facility])[address] MCHC 27.1 % Low 30.5-36.0 [facility] Comment on above: Performed By: #### L [id number], [id number] ####Catalogue Maker: UNA ARCE ([id number])[facility] ([facility])[address] MCV (RBC) [Entitic vol] 83.4 fL Normal 77.0-99.0 S [facility] Comment on above: Performed By: #### L [id number], [id number] ####Catalogue Maker: UNA STAUFFERMELANIE ([id number])[facility] CENTERAngel SANCHEZGUADALUPE COUNTY HOSPITALMarisol (SBHLAB)[address] [place] [address] Platelet mean volume (Bld) [Entitic vol] 9.4 fL Normal 9.0-12.7 [facility] Comment on above: Performed By: #### L [id number], [id number] ####Catalogue Maker: UNA ARCE ([id number])[facility] CENTERAngel [place] ([facility])[address] Platelets (Bld) [#/Vol] 279 10*3/uL Normal 140-440 [facility] Comment on above: Performed By: #### L [id number], [id number] ####Catalogue Maker: UNA ARCE ([id number])[facility]ENTERAngel [place] (SB[facility]AB)[address] [place] [address] RBC (Bld) [#/Vol] 3.32 10*6/uL Low 4.40-5.90 [facility] Comment on above: Performed By: #### L [id number], [id number] ####Catalogue Maker: UNA ARCE ([id number])[facility] ([facility])[address] [place] [address] WBC (Bld) [#/Vol] 11.2 10*3/uL High 3.6-10.7 [facility] Comment on above: Performed By: #### L [id number], [id number] ####Catalogue Maker: UNA ARCE ([id number])[facility] ([facility])[address] COMPREHENSIVE METABOLIC PANE Anant 04-09-2025 Albumin [Mass/Vol] 2.2 g/dL Low 3.4-4.8 [facility] Comment on above: Performed By: #### L AB103, [id number], LAB17 ####Catalogue Maker: UNA ARCE ([id number])[facility]ENTERAngel BASHIRN (SBHLAB)[address] ALP [Catalytic activity/Vol] 56 U/L Normal 40-150 [facility] Comment on above: Performed By: #### L AB103, [id number], LAB17 ####Catalogue Maker: UNA ARCE ([id number])[facility]ENTERAngel SANCHEZGUADALUPE COUNTY HOSPITALN (SBHLAB)[address] ALT [Catalytic activity/Vol] U/L Normal <40 [facility] Comment on above: Performed By: #### L AB103, [id number], LAB17 ####Catalogue Maker: UNA BERMUDEZPEDRO ([id number])[facility]ENTERAngel SANCHEZGUADALUPE COUNTY HOSPITALN (SBHLAB)[address] Anion gap [Moles/Vol] 10 mmol/L Normal 3-13 [facility] Comment on above: Performed By: #### L AB103, [id number], LAB17 ####Catalogue Maker: UNA ARCE ([id number])[facility]ENTERAngel [place] (SB[facility]AB)[address] AST [Catalytic activity/Vol] 18 U/L Normal <34 [facility] Comment on above: Performed By: #### L AB103, [id number], LAB17 ####Catalogue Maker: UNA ARCE ([id number])[facility]ENTERAngel [facility]ZGUADALU[facility]OSPITALN (SBHLAB)[address] Bilirubin [Mass/Vol] 0.7 mg/dL Normal <1.2 [facility] Comment on above: Performed By: #### L AB103, [id number], LAB17 ####Catalogue Maker: UNA ARCE ([id number])[facility] LAURAGUADALUPE COUNTY HOSPITALN (SBHLAB)[address] Calcium [Mass/Vol] 8.1 mg/dL Low 8.8-10.0 [facility] Comment on above: Performed By: #### L AB103, [id number], LAB17 ####Catalogue Maker: UNA ARCE ([id number])LYNETTE BASHIRN ([facility]AB)[address] [place] [address] [place] Chloride [Moles/Vol] 98 mmol/L Normal 98-107 [facility] Comment on above: Performed By: #### L AB103, [id number], LAB17 ####Catalogue Maker: UAN ARCE ([id number])[facility]ENTERAngel BASHIRN (SBHLAB)[address] [place] [address] [place] CO2 [Moles/Vol] 34 mmol/L High 23-31 [facility] Comment on above: Performed By: #### L AB103, [id number], LAB17 ####Catalogue Maker: UNA ARCE ([id number])[facility] CENTERAngel BASHIRN (SBHLAB)[address] Creatinine [Mass/Vol] 1.53 mg/dL High 0.72-1.25 [facility] Comment on above: Performed By: #### L AB103, [id number], LAB17 ####Catalogue Maker: UNA ARCE ([id number])[facility] CENTERAngel [facility]ERN (SBHLAB)[address] [place] [address] [place] GLOMERULAR FILTRATION RATE ML/MIN/1.73 SQ M.PREDICTED 43.2 mL/min/1.73m*2 Low >60.0 [facility] Comment on above: Result Comment: Calc ulation based on the Chronic Kidney Disease Epidemiology Collaboration (CKD-EPI) equation refit without adjustment for race Performed By: #### L AB103, [id number], LAB17 ####Catalogue Maker: UNA ARCE ([id number])[facility]ENTERAngel BASHIRN (SBHLAB)[address] [place] [address] [place] Glucose [Mass/Vol] 90 mg/dL Normal 82-115 [facility] Comment on above: Performed By: #### L AB103, [id number], LAB17 ####Catalogue Maker: UNA ARCE ([id number])[facility]ENTERAngel SANCHEZGUADALUPE COUNTY HOSPITALN (SBHLAB)[address] [place] [address] [place] Potassium [Moles/Vol] 3.5 mmol/L Normal 3.5-5.1 [facility] Comment on above: Result Comment: [facility] potassium values may be up to 0.5 mmol/L lower than serum values. Performed By: #### L AB103, [id number], LAB17 ####Catalogue Maker: UNA ARCE ([id number])[facility] ([facility])[address] Protein [Mass/Vol] 5.7 g/dL Low 6.4-8.3 [facility] Comment on above: Performed By: #### L [id number], [id number], LAB17 ####Catalogue Maker: UNA ARCE ([id number])[facility] (SBHLAB)[address] Sodium [Moles/Vol] 142 mmol/L Normal 136-145 [facility] Comment on above: Performed By: #### L AB103, [id number], LAB17 ####Catalogue Maker: UNA ARCE ([id number])[facility] (SBHLAB)[address] [place] [address] Urea nitrogen [Mass/Vol] 25 mg/dL High 9-23 [facility] Comment on above: Performed By: #### L AB103, [id number], LAB17 ####Catalogue Maker: UNA ARCE ([id number])[facility] (SBHLAB)[address] CULTURE ANAEROBICon 04-09-20 25 CULTURE ANAEROBIC Normal [facility] Comment on above: Performed By: #### L [id number] ####Catalogue Maker: ANAHY AVILA ([id number])[facility] ([facility])[address] [place] [address] CULTURE ANAEROBIC Normal [facility] System [facility] Comment on above: Performed By: #### L [id number] ####Catalogue Maker: ANAHY AVILA ([id number])[facility] ([facility])[address] [place] [address] [place] CULTURE, AEROBIC BACTERIA WI TH GRAM STAINon 08-01-2025 CULTURE, AEROBIC BACTERIA WITH GRAM STAIN Normal [facility] Comment on above: Performed By: #### L [id number] ####Catalogue Maker: ANAHY AVILA ([id number])[facility])[address] [place] [address] CULTURE, AEROBIC BACTERIA WITH GRAM STAIN Normal [facility] ealth System [facility] Comment on above: Performed By: #### L AB897 ####Catalogue Maker: ANAHY AVILA ([id number])[facility] ([facility])[address] [place] [address] Comprehensive metabolic 1998 panelon 04-09-2025 Albumin [Mass/Vol] 2.2 g/dL Low 3.4 - 4.8 g/dL [facility] ALP [Catalytic activity/Vol] 56 U/L 40 - 150 U/L [facility] ALT [Catalytic activity/Vol] U/L NINF - 40 U/L [facility] Anion gap [Moles/Vol] 10 mmol/L 3 - 13 mmol/L [facility] AST [Catalytic activity/Vol] 18 U/L NINF - 34 U/L [facility] Bilirubin [Mass/Vol] 0.7 mg/dL NINF - 1.2 mg/dL [facility] Calcium [Mass/Vol] 8.1 mg/dL Low 8.8 - 10. 0 mg/dL [facility] Chloride [Moles/Vol] 98 mmol/L 98 - 10 7 mmol/L [facility] CO2 [Moles/Vol] 34 mmol/L High 23 - 31 mmol/L [facility] Creatinine [Mass/Vol] 1.53 mg/dL High 0.72 - 1.25 mg/dL [facility] GFR/1.73 sq M.predicted (S/P/Bld) [Vol rate/Area] 43.2 mL/min Low - PINF [facility] Glucose [Mass/Vol] 90 mg/dL 82 - 115 mg/dL [facility] Interpretation and review of laboratory results Abnormal [facility] Potassium [Moles/Vol] 3.5 mmol/L 3.5 - 5.1 mmol/L [facility] Protein [Mass/Vol] 5.7 g/dL Low 6.4 - 8.3 g/dL [facility] Sodium [Moles/Vol] 142 mmol/L 136 - 145 mmol/L [facility] Urea nitrogen [Mass/Vol] 25 mg/dL High 9 - 23 mg/d L [facility] Consulton 04-09-2025 Consult Normal [facility] GLUCOSE, BODY FLUIDon 2024 GLUCOSE, BODY FLUID 132 mg/dL Normal [facility] Comment on above: Performed By: #### L AB110, [id number], EPQ379, [id number] ####Catalogue Maker: ANAHY AVILA ([id number])[facility] ([facility])[address] [place] [address] [place] GLUCOSE, BODY FLUID 92 mg/dL Normal [facility] Comment on above: Performed By: #### L AB188, [id number], KTV459, [id number] ####Catalogue Maker: ANAHY AVILA ([id number])[facility] ([facility])[address] [place] [address] [place] LACTATE DEHYDROGENASEon LDH [Catalytic activity/Vol] 181 U/L Normal 125-220 [facility] Comment on above: Performed By: #### L AB118, LAB96 ####Catalogue Maker: UNA ARCE ([id number])[facility] [place] [address] [place] LACTATE DEHYDROGENASE, BODY FLUIDon 04-09-2025 LACTATE DEHYDROGENASE, BODY FLUID BY LAC->PYR 95 U/L Normal [facility] Comment on above: Performed By: #### L AB110, [id number], [id number], [id number] ####Catalogue Maker: ANAHY AVILA ([id number])[facility] ([facility])[address] [place] [address] [place] LACTATE DEHYDROGENASE, BODY FLUID BY LAC->PYR 95 U/L Normal [facility] Comment on above: Performed By: #### L AB188, ELW750, [id number], [id number] ####Catalogue Maker: ANAHY AVILA ([id number])[facility] ([facility])[address] [place] [address] [place] LDH Lactate to pyruvate reac tion [Catalytic activity/Vol]on 04-09-2025 Interpretation and review of laboratory results Normal [facility] Laboratoryon 04-09-2025 Fluid Nom (Body fld) Pleural Fluid S [facility] Fluid Nom (Body fld) Pleural Fluid S [facility] Fluid Nom (Body fld) Pleural Fluid S [facility] Fluid Nom (Body fld) Pleural Fluid S [facility] Fluid Nom (Body fld) Pleural Fluid S [facility] Fluid Nom (Body fld) Pleural Fluid S [facility] Fluid Nom (Body fld) Pleural Fluid S [facility] LaboratoryOrdered By: Anne cadena on 04-09-2025 Fluid Nom (Body fld) Pleural Fluid S [facility] LaboratoryOrdered By: Rian Spann on 04-09-2025 Fluid Nom (Body fld) Pleural Fluid S [facility] Laboratory - Chemistry and C hemistry - challengeon 04-09-2025 LDH (Body fld) [Catalytic activity/Vol] 95 U/L [facility] Glucose (Body fld) [Mass/Vol] 132 mg/dL [facility] Protein (Body fld) [Mass/Vol] 2.3 g/dL [facility] pH (Body fld) 7.747 [pH] [facility] pH (Body fld) 7.688 [pH] [facility] Protein (Body fld) [Mass/Vol] 2.5 g/dL [facility] Glucose (Body fld) [Mass/Vol] 92 mg/dL [facility] LDH Lactate to pyruvate reaction [Catalytic activity/Vol] 181 U/L 125 - 220 U/L [facility] Protein [Mass/Vol] 5.9 g/dL Low 6.4 - 8.3 g/dL [facility] Magnesium [Mass/Vol] 1.7 mg/dL 1.6 - 2 .6 mg/dL [facility] Laboratory - Chemistry and C hemistry - challengeOrdered By: Anne Miles on 04-09-2025 LDH (Body fld) [Catalytic activity/Vol] 95 U/L [facility] Laboratory - Hematology and Cell countson 04-09-2025 Cells Counted Total (Body fld) [#] 100 [facility] Lymphocytes/100 WBC (Bld) 51 % [facility] Macrophages/100 WBC Manual cnt (Body fld) 36 % [facility] Neutrophils/100 WBC (Body fld) 13 % [facility] RBC Auto (Body fld) [#/Vol] High [facility] WBC (Body fld) [#/Vol] 0.341 10*3/uL High NINF [facility] Cells Counted Total (Body fld) [#] 100 [facility] Lymphocytes/100 WBC (Bld) 31 % [facility] Macrophages/100 WBC Manual cnt (Body fld) 37 % [facility] Mesothelial cells/100 WBC Manual cnt (Body fld) 2 % [facility] Neutrophils/100 WBC (Body fld) 30 % [facility] Anisocytosis Ql (Bld) Moderate Abnormal (none) [facility] Eosinophils (Bld) [#/Vol] 0.6 10*3/uL High 0.0 - 0.5 10*3/uL [facility] Eosinophils/100 WBC (Bld) 5 % 0 - 6 % [facility] Hypochromia Ql (Bld) Moderate Abnormal (none) [facility] Lymphocytes (Bld) [#/Vol] 0.8 10*3/uL Low 1.0 - 4.3 10*3/uL [facility] Lymphocytes/100 WBC (Bld) 7 % Low 15 - 45 % [facility] Monocytes (Bld) [#/Vol] 2 10*3/uL High 0.0 - 0.9 10*3/uL [facility] Monocytes/100 WBC (Bld) 18 % High 5 - 13 % [facility] Neutrophils (Bld) [#/Vol] 8 10*3/uL High 1.8 - 7.5 10*3/uL [facility] Poikilocytosis LM Ql (Bld) Slight Abnormal (none) [facility] Polychromasia LM Ql (Bld) Slight Abnormal (none) [facility] RBC morphology finding Nom (Bld) abnormal [facility] Segmented neutrophils/100 WBC (Bld) 71 % 38 - 82 % [facility] Stomatocytes LM Ql (Bld) Moderate Abnormal (none) [facility] Laboratory - Hematology and Cell countsOrdered By: Kyara Valles on 04-09-2025 RBC Auto (Body fld) [#/Vol] High [facility] WBC (Body fld) [#/Vol] 0.112 10*3/uL High [facility] MAGNESIUMon 04-09-2025 Magnesium [Mass/Vol] 1.7 mg/dL Normal 1.6-2.6 [facility] Comment on above: Result Comment: YARELI [place] COMMENTS:Higher values can be expected in females during menses. Performed By: #### L AB103, HCJ174, LAB17 ####Catalogue Maker: UNA ARCE ([id number])[facility] [place] ([facility])[address] MANUAL DIFFERENTIAL (CELLAVI BANDAR)on 04-09-2025 ANISOCYTOSIS PRESENCE IN BLOOD BY LIGHT MICROSCOPY Moderate Abnormal (none) [facility] Comment on above: Performed By: #### L [id number], [id number] ####Catalogue Maker: UNA ARCE ([id number])[facility] [place] ([facility])[address] BAND NEUTROPHILS TOTAL PER COUNTED LEUKOCYTES BY MANUAL COUNT Normal [facility] Comment on above: Performed By: #### L [id number], [id number] ####Catalogue Maker: UNA ARCE ([id number])[facility] [place] ([facility])[address] BASOPHILS TOTAL PER COUNTED LEUKOCYTES BY MANUAL COUNT Normal [facility] Comment on above: Performed By: #### L [id number], [id number] ####Catalogue Maker: UNA ARCE ([id number])[facility] [place] ([facility])[address] BLASTS TOTAL PER COUNTED LEUKOCYTES BY MANUAL COUNT Normal [facility] Comment on above: Performed By: #### L [id number], [id number] ####Catalogue Maker: UNA ARCE ([id number])[facility] [place] ([facility])[address] EOSINOPHILS (10*3/UL) IN BLOOD-CELLAVISION 0.6 10*3/uL High 0.0-0.5 [facility] Comment on above: Performed By: #### L [id number], [id number] ####Catalogue Maker: UNA STAUFFERMELANIE ([id number])[facility] [place] ([facility])[address] [place] [address] [place] EOSINOPHILS TOTAL PER COUNTED LEUKOCYTES BY MANUAL COUNT 5 High 0-1 [facility] Comment on above: Performed By: #### L [id number], [id number] ####Catalogue Maker: UNA STAUFFERMELANIE ([id number])[facility] [place] ([facility])[address] [place] [address] [place] EOSINOPHILS/100 LEUKOCYTES IN BLOOD-CELLAVISION 5 % Normal 0-6 [facility] Comment on above: Performed By: #### L [id number], [id number] ####Catalogue Maker: UNA BERMUDEZPEDRO ([id number])[facility] [place] ([facility])[address] [place] [address] [place] HYPOCHROMIA (PRESENCE) IN BLOOD BY LIGHT MICROSCOPY Moderate Abnormal (none) [facility] Comment on above: Performed By: #### L [id number], [id number] ####Catalogue Maker: UNA BERMUDEZPEDRO ([id number])[facility] [place] ([facility])[address] [place] [address] [place] LYMPHOCYTES (10*3/UL) IN BLOOD-CELLAVISION 0.8 10*3/uL Low 1.0-4.3 [facility] Comment on above: Performed By: #### L [id number], [id number] ####Catalogue Maker: UNA ARCE ([id number])[facility] [place] ([facility])[address] [place] [address] [place] LYMPHOCYTES TOTAL PER COUNTED LEUKOCYTES BY MANUAL COUNT 7 Normal [facility] Comment on above: Performed By: #### L [id number], [id number] ####Catalogue Maker: UNA STAUFFERMELANIE ([id number])[facility] [place] ([facility])[address] [place] [address] [place] LYMPHOCYTES/100 LEUKOCYTES IN BLOOD-CELLAVISION 7 % Low 15-45 [facility] Comment on above: Performed By: #### L [id number], [id number] ####Catalogue Maker: UNA STAUFFERMELANIE ([id number])[facility] [place] ([facility])[address] [place] [address] [place] METAMYELOCYTES TOTAL PER COUNTED LEUKOCYTES BY MANUAL COUNT [facility] Comment on above: Performed By: #### L [id number], [id number] ####Catalogue Maker: UNA ARCE ([id number])[facility] [place] ([facility])[address] [place] [address] [place] MONOCYTES (10*3/UL) IN BLOOD-CELLAVISION 2.0 10*3/uL High 0.0-0.9 [facility] Comment on above: Performed By: #### L [id number], [id number] ####Catalogue Maker: UNA ARCE ([id number])[facility] [place] ([facility])[address] [place] [address] [place] MONOCYTES TOTAL PER COUNTED LEUKOCYTES BY MANUAL COUNT 19 [facility] Comment on above: Performed By: #### L [id number], [id number] ####Catalogue Maker: UNA ARCE ([id number])[facility] [place] ([facility])[address] [place] [address] [place] MONOCYTES/100 LEUKOCYTES IN BLOOD-LUCIANA 18 % High 5-13 [facility] Comment on above: Performed By: #### L [id number], [id number] ####Catalogue Maker: UNA ARCE ([id number])[facility] [place] ([facility])[address] [place] [address] [place] MYELOCYTES COUNTED BY MANUAL COUNT [facility] Comment on above: Performed By: #### L [id number], [id number] ####Catalogue Maker: UNA ARCE ([id number])[facility] [place] ([facility])[address] [place] [address] [place] NEUTROPHILS TOTAL PER COUNTED LEUKOCYTES BY MANUAL COUNT 77 [facility] Comment on above: Performed By: #### L [id number], [id number] ####Catalogue Maker: UNA ARCE ([id number])[facility] [place] ([facility])[address] [place] [address] [place] POIKILOCYTOSIS (PRESENCE) IN BLOOD BY LIGHT MICROSCOPY Slight Abnormal (none) [facility] Comment on above: Performed By: #### L [id number], [id number] ####Catalogue Maker: UNA ARCE ([id number])[facility] [place] ([facility])[address] [place] [address] [place] POLYCHROMASIA IN BLOOD BY LIGHT MICROSCOPY Slight Abnormal (none) [facility] Comment on above: Performed By: #### L [id number], [id number] ####Catalogue Maker: UNA ARCE ([id number])[facility] [place] ([facility])[address] PROMYELOCYTES TOTAL PER COUNTED LEUKOCYTES BY MANUAL COUNT Normal [facility] Comment on above: Performed By: #### L [id number], [id number] ####Catalogue Maker: UNA ARCE ([id number])[facility] [place] ([facility])[address] [place] [address] [place] RBC MORPHOLOGY IN BLOOD abnormal Normal S [facility] Comment on above: Performed By: #### L [id number], [id number] ####Catalogue Maker: UNA ARCE ([id number])[facility] [place] ([facility])[address] [place] [address] [place] SEGMENTED NEUTROPHILS (10*3/UL) IN BLOOD-CELLAVISION 8.0 10*3/uL High 1.8-7.5 [facility] Comment on above: Performed By: #### L [id number], [id number] ####Catalogue Maker: UNA ARCE ([id number])[facility] [place] ([facility])[address] [place] [address] [place] SEGMENTED NEUTROPHILS/100 LEUKOCYTES-CE 71 % Normal 38-82 [facility] Comment on above: Performed By: #### L [id number], [id number] ####Catalogue Maker: UNA ARCE ([id number])[facility] ([facility])[address] STOMATOCYTES IN BLOOD BY LIGHT MICROSCOPY Moderate Abnormal (none) [facility] Comment on above: Performed By: #### L [id number], [id number] ####Catalogue Maker: UNA YAZMIN ([id number])[facility] ([facility])[address] UNCLASSIFIED CELLS TOTAL PER COUNTED LEUKOCYTES BY MANUAL COUNT Normal [facility] Comment on above: Performed By: #### L [id number], [id number] ####Catalogue Maker: UNA ARCE ([id number])[facility] ([facility])[address] VARIANT LYMPHOCYTES TOTAL PER COUNTED LEUKOCYTES BY MANUAL COUNT Normal [facility] Comment on above: Performed By: #### L [id number], [id number] ####Catalogue Maker: UNA YAZMIN ([id number])[facility] ([facility])[address] Magnesium [Mass/Vol]on 04-09 [facility] No Panel Informationon 04-09 [facility] Interpretation and review of laboratory results Abnormal [facility] Interpretation and review of laboratory results Abnormal [facility] Interpretation and review of laboratory results Normal [facility] Eosinophils Manual 5 High 0 - 1 [facility] Lymphocytes Manual 7 [facility] Monocytes Manual 19 [facility] alth Neutrophils Manual 77 [facility] No Panel InformationOrdered By: Anne Miles on 04-09-2025 [facility] No Panel InformationOrdered By: Kyara Valles on 04-09-2025 Interpretation and review of laboratory results Abnormal [facility] No Panel InformationOrdered By: Jg Sarabia on 08-01-2025 Interpretation and review of laboratory results Abnormal [facility] Nursing Noteon 04-09-2025 Nursing Note R thoracentesis complete pt tolerated well with minimal discomfort Normal [facility] Nursing Note L thoracentesis complete per Dr Lewis. Pt tolerated well with minimal discomfort Normal [facility] PH, BODY FLUIDon 04-09-2025 pH (Body fld) 7.747 [pH] Normal [facility] Comment on above: Performed By: #### L AB110, ZQZ993, NUN306, XUT083 ####Catalogue Maker: ANAHY AVILA ([id number])[facility] ([facility])[address] [place] [address] TYPE OF BODY FLUID Pleural Fluid Normal [facility] Comment on above: Result Comment: YARELI [place] COMMENTS:This test was developed and its performance characteristics determined by [employer]. It has not been cleared or approved by the [place] Food and Drug Administration. This test was performed in a CLIA certified laboratory and is intended for clinical purposes. Performed By: #### L AB110, ZJY119, [id number], DGV180 ####Catalogue Maker: ANAHY AVILA ([id number])[facility] ([facility])[address] [place] [address] Result Comment: YARELI [place] COMMENTS:This test was developed and its performance characteristics determined by [employer]. It has not been cleared or approved [...] developed and its performance characteristics determined by [employer]. It has not been cleared or approved by the [place] Food and Drug Administration. This test was performed in a CLIA certified laboratory and is intended for clinical purposes.Pleural cmzna-oc-sjlti protein ratio of >0.5 is one of Light???s criteria for an exudate. Heart failure associated misclassifications (by Light???s criteria) may be differentiated as transudative effusions by subsequently evaluating a szapz-yb-ilaqbyc albumin gradient (>1.2 g/dL) and/or a ymbsa-sd-tkcxa protein gradient (>3.1 g/dL). Result Comment: YARELI [place] COMMENTS:This test was developed and its performance characteristics determined by [facility] [employer]. It has not been cleared or approved by the [place] Food and Drug Administration. This test was performed in a CLIA certified laboratory and is intended for clinical purposes.Exudates are defined as meeting one of the following criteria: (a) Pleural bdbgh-zk-xwsvh protein ratio of >0.5, (b) pleural bzzku-mh-npanl LDH ratio of >0.6, or (c)a pleural fluid LDH activity that is >2/3 the upper limit of a normal serum LDH activity (Light???s criteria). Performed By: #### L AB209, [id number] ####Catalogue Maker: UNA ARCE ([id number])[facility] ([facility])[address] [place] [address] pH (Body fld) 7.688 [pH] Normal [facility] Comment on above: Performed By: #### L AB188, [id number], EUX400, [id number] ####Catalogue Maker: ANAHY AVILA ([id number])[facility] ([facility])[address] [place] [address] [place] PHOSPHORUSon 04-09-2025 Phosphate [Mass/Vol] 3.5 mg/dL Normal 2.3-4.7 [facility] Comment on above: Performed By: #### L AB103, QXZ694, LAB17 ####Catalogue Maker: UNA ARCE ([id number])[facility] ([facility])[address] [place] [address] PROTEIN BODY FLUIDon 025 PROTEIN, BODY FLUID 2.3 g/dL Normal [facility] Comment on above: Performed By: #### L AB110, [id number], EEY091, [id number] ####Catalogue Maker: ANAHY AVILA ([id number])[facility] ([facility])[address] [place] [address] [place] PROTEIN, BODY FLUID 2.5 g/dL Normal [facility] Comment on above: Performed By: #### L AB188, TZM130, HCX954, [id number] ####Catalogue Maker: ANAHY AVILA ([id number])[facility] ([facility])[address] [place] [address] Phosphate [Moles/Vol]on Phosphate [Mass/Vol] 3.5 mg/dL 2.3 - 4 .7 mg/dL [facility] Progress Noteon 04-09-2025 Progress Note [facility] Normal [facility] Progress Note Normal [facility] Progress Note Normal [facility] Progress [facility] TOTAL PROTEINon 04-09-2025 Protein [Mass/Vol] 5.9 g/dL Low 6.4-8.3 [facility] Comment on above: Result Comment: Seru m protein values are higher than plasma values. Samples from recumbent persons are lower by up to 0.5 g/dL as compared to ambulatory persons. After 60 years values are lower by up to 0.2 g/dL. Performed By: #### L AB118, LAB96 ####Catalogue Maker: UNA ARCE ([id number])[facility] ([facility])[address] [place] [address] XR CHEST 1 VIEWon 04-09-2025 XR CHEST 1 VIEW Normal [facility] X[facility] Chest Single viewon 04-09 [facility] Radiology Study observation (narrative) Lynette worthington [facility] Radiology Study observation (narrative) [facility] Radiology Study observation (narrative) Lynette Balderrama alth XR Chest Single viewOrdered By: Gary Kay on 04-09-2025 [facility] [employer] Work Phone: XR Chest Single viewOrdered By: Sis Collins on 04-09-2025 [facility] [employer] Work Phone: XR Chest Single viewOrdered By: Kev Mattson on 04-09-2025 [facility] Work Phone: [phone] 04-08-2025 [id number] Attempted to insert garcía. [employer]ro[employer] injected. Unable to visualize meatus. Attempted x1 to insert garcía without success. Normal [facility] [id number] Normal [facility] [id number] 04-08-2025 [id number] Normal [facility] BLOOD GAS ARTERIALon 025 AMOUNT OF OXYGEN .40 Normal [facility] Comment on above: Performed By: #### L AB76 ####Catalogue Maker: UNA ARCE ([id number])[facility] ([facility])[address] [place] [address] Base excess Calc (Bld) [Moles/Vol] 11.2 mmol/L High -3.0-3.0 [facility] Comment on above: Performed By: #### L AB76 ####Catalogue Maker: UNA ARCE ([id number])[facility] ([facility])[address] [place] [address] CO2 [Moles/Vol] 41.2 mmol/L High 22.0-28.0 [facility] Comment on above: Performed By: #### L AB76 ####Catalogue Maker: UNA ARCE ([id number])[facility] ([facility])[address] [place] [address] [place] HCO3 (Bld) [Moles/Vol] 38.9 mmol/L High 21.0-27.0 [facility] Comment on above: Performed By: #### L AB76 ####Catalogue Maker: UNA ARCE ([id number])[facility] ([facility])[address] [place] [address] [place] Hemoglobin (Bld) [Mass/Vol] 8.4 g/dL Low Screen only [facility] Comment on above: Performed By: #### L AB76 ####Catalogue Maker: UNA ARCE ([id number])[facility] [place] ([facility])[address] OXYGEN SATURATION (%) IN ARTERIAL BLOOD 97.0 % Normal 97.0-99.0 [facility] Comment on above: Performed By: #### L AB76 ####Catalogue Maker: UNA AIDANLevonMELANIE ([id number])[facility]ENTERAngel [facility]ZGUADALU[facility]ITAL[facility] ([facility])[address] PCO2 ARTERIAL 75.1 mm Hg High 35.0-48.0 [facility] Comment on above: Performed By: #### L AB76 ####Catalogue Maker: UNA YAZMIN ([id number])[facility] [place] ([facility])[address] PH ARTERIAL 7.332 Low 7.350-7.450 [facility] Comment on above: Performed By: #### L AB76 ####Catalogue Maker: UNA YAZMIN ([id number])[facility] ([facility])[address] PO2 ARTERIAL 104.0 mm Hg Normal 83.0-108.0 [facility] Comment on above: Performed By: #### L AB76 ####Catalogue Maker: UNA BERMUDEZLevonMELANIE ([id number])[facility] (HLAB)[address] SOURCE OF OXYGEN Non-Invasive Ventilator Normal [facility] Comment on above: Performed By: #### L AB76 ####Catalogue Maker: UNA YAZMIN ([id number])[facility] (HLAB)[address] AMOUNT OF OXYGEN 4 liters Normal [facility] Comment on above: Performed By: #### L AB76 ####Catalogue Maker: UNA BERMUDEZLevonMELANIE ([id number])[facility] (SBHLAB)[address] Base excess Calc (Bld) [Moles/Vol] 9.9 mmol/L High -3.0-3.0 [facility] Comment on above: Performed By: #### L AB76 ####Catalogue Maker: UNA ARCE ([id number])[facility] [place] (SBHLAB)[address] CO2 [Moles/Vol] 40.6 mmol/L High 22.0-28.0 [facility] Comment on above: Performed By: #### L AB76 ####Catalogue Maker: UNA ARCE ([id number])[facility] [place] (SBHLAB)[address] HCO3 (Bld) [Moles/Vol] 38.2 mmol/L High 21.0-27.0 [facility] Comment on above: Performed By: #### L AB76 ####Catalogue Maker: UNA ARCE ([id number])[facility] [place] (SBHLAB)[address] Hemoglobin (Bld) [Mass/Vol] 8.6 g/dL Low Screen only [facility] Comment on above: Performed By: #### L AB76 ####Catalogue Maker: UNA ARCE ([id number])[facility] (SBHLAB)[address] OXYGEN SATURATION (%) IN ARTERIAL BLOOD 96.1 % Low 97.0-99.0 [facility] Comment on above: Performed By: #### L AB76 ####Catalogue Maker: UNA ARCE ([id number])[facility] (SBHLAB)[address] PCO2 ARTERIAL 80.1 mm Hg Critically high 35.0-48.0 [facility] Comment on above: Performed By: #### L AB76 ####Catalogue Maker: UNA ARCE ([id number])[facility] (SBHLAB)[address] PH ARTERIAL 7.296 Low 7.350-7.450 [facility] Comment on above: Performed By: #### L AB76 ####Catalogue Maker: UNA ARCE ([id number])[facility] [place] (SBHLAB)[address] PO2 ARTERIAL 92.0 mm Hg Normal 83.0-108.0 [facility] Comment on above: Performed By: #### L AB76 ####Catalogue Maker: UNA ARCE ([id number])[facility] [place] (SBHLAB)[address] SOURCE OF OXYGEN Nasal Cannula (LPM) Normal [facility] Comment on above: Performed By: #### L AB76 ####Catalogue Maker: UNA ARCE ([id number])[facility] [place] (SBHLAB)[address] CBC W Auto Differential pane l (Bld)on 04-08-2025 Erythrocyte distribution width (RBC) [Ratio] 21.1 % High 11.5 - 15.0 % [facility] Hematocrit (Bld) [Volume fraction] 25.9 % Low 40.0 - 52.0 % [facility] Hemoglobin (Bld) [Mass/Vol] 7.2 g/dL Low 13.0 - 18.0 g/dL [facility] MCH (RBC) [Entitic mass] 22.3 pg Low 26. 0 - 34.0 pg [facility] MCHC (RBC) [Mass/Vol] 27.8 % Low 30.5 - 36.0 % [facility] MCV (RBC) [Entitic vol] 80.2 fL 77.0 - 99.0 fL [facility] [employer] Platelet mean volume (Bld) [Entitic vol] 9.9 fL 9.0 - 12.7 fL [facility] Platelets (Bld) [#/Vol] 314 10*3/uL 140 - 440 10*3/uL [facility] RBC (Bld) [#/Vol] 3.23 10*6/uL Low 4.40 - 5.9 0 10*6/uL [facility] WBC (Bld) [#/Vol] 13 10*3/uL High 3.6 - 10.7 10*3/uL [facility] CBC WITH AUTO DIFFERENTIALon 04-08-2025 Erythrocyte distribution width (RBC) [Ratio] 21.1 % High 11.5-15.0 [facility] Comment on above: Performed By: #### L [id number], [id number] ####Catalogue Maker: UNA ARCE ([id number])MONISHAA BARBCHRISTIN[place] (SBHLAB)[address] Hematocrit (Bld) [Volume fraction] 25.9 % Low 40.0-52.0 [facility] Comment on above: Performed By: #### L [id number], [id number] ####Catalogue Maker: UNA ARCE ([id number])[facility] [place] (SBHLAB)[address] Hemoglobin (Bld) [Mass/Vol] 7.2 g/dL Low 13.0-18.0 [facility] Comment on above: Performed By: #### L [id number], [id number] ####Catalogue Maker: UNA ARCE ([id number])[facility] [place] (SBHLAB)[address] MCH (RBC) [Entitic mass] 22.3 pg Low 26.0-34.0 [facility] Comment on above: Performed By: #### L [id number], [id number] ####Catalogue Maker: UNA ARCE ([id number])[facility] [place] (SBHLAB)[address] MCHC 27.8 % Low 30.5-36.0 [facility] Comment on above: Performed By: #### L [id number], [id number] ####Catalogue Maker: UNA ARCE ([id number])[facility] [place] (SBHLAB)[address] MCV (RBC) [Entitic vol] 80.2 fL Normal 77.0-99.0 [facility] Comment on above: Performed By: #### L [id number], [id number] ####Catalogue Maker: UNA ARCE ([id number])[facility] [place] (SBHLAB)[address] Platelet mean volume (Bld) [Entitic vol] 9.9 fL Normal 9.0-12.7 [facility] Comment on above: Performed By: #### L [id number], [id number] ####Catalogue Maker: UNA ARCE ([id number])LYNETTE [place] (SBHLAB)[address] Platelets (Bld) [#/Vol] 314 10*3/uL Normal 140-440 [facility] Comment on above: Performed By: #### L [id number], [id number] ####Catalogue Maker: UNA ARCE ([id number])[facility]ENTERAngel BASHIRMarisol (SBHLAB)[address] RBC (Bld) [#/Vol] 3.23 10*6/uL Low 4.40-5.90 [facility] Comment on above: Performed By: #### Gilbert [id number], [id number] ####Catalogue Maker: UNA ARCE ([id number])[facility] BASHIRMarisol (SBHLAB)[address] WBC (Bld) [#/Vol] 13.0 10*3/uL High 3.6-10.7 [facility] Comment on above: Performed By: #### L [id number], [id number] ####Catalogue Maker: UNA ARCE ([id number])[facility] BASHIRMarisol (SBHLAB)[address] COMPREHENSIVE METABOLIC PANE Anant 04-08-2025 Albumin [Mass/Vol] 2.4 g/dL Low 3.4-4.8 [facility] Comment on above: Performed By: #### L AB103, LAB17 ####Catalogue Maker: UNA ARCE ([id number])[facility] BASHIRMarisol (SBHLAB)[address] ALP [Catalytic activity/Vol] 57 U/L Normal 40-150 [facility] Comment on above: Performed By: #### L AB103, LAB17 ####Catalogue Maker: UNA ARCE ([id number])[facility] [place] (SBHLAB)[address] [place] [address] [place] ALT [Catalytic activity/Vol] U/L Normal <40 [facility] Comment on above: Performed By: #### L AB103, LAB17 ####Catalogue Maker: UNA ARCE ([id number])[facility] [place] (SBHLAB)[address] Anion gap [Moles/Vol] 10 mmol/L Normal 3-13 [facility] Comment on above: Performed By: #### L AB103, LAB17 ####Catalogue Maker: UNA STAUFFERMELANIE ([id number])[facility] [place] (SBHLAB)[address] AST [Catalytic activity/Vol] 21 U/L Normal <34 [facility] Comment on above: Performed By: #### L AB103, LAB17 ####Catalogue Maker: UNA STAUFFERMELANIE ([id number])[facility] [place] (SBHLAB)[address] Bilirubin [Mass/Vol] 0.6 mg/dL Normal <1.2 [facility] Comment on above: Performed By: #### L AB103, LAB17 ####Catalogue Maker: UNA ARCE ([id number])[facility] [place] (SBHLAB)[address] [place] [address] [place] Calcium [Mass/Vol] 7.9 mg/dL Low 8.8-10.0 [facility] Comment on above: Performed By: #### L AB103, LAB17 ####Catalogue Maker: UNA ARCE ([id number])[facility] [place] (SBHLAB)[address] [place] [address] [place] Chloride [Moles/Vol] 99 mmol/L Normal 98-107 [facility] Comment on above: Performed By: #### L AB103, LAB17 ####Catalogue Maker: UNA ARCE ([id number])[facility]Angel BASHIRN (SBHLAB)[address] [place] [address] [place] CO2 [Moles/Vol] 33 mmol/L High 23-31 [facility] Comment on above: Performed By: #### L AB103, LAB17 ####Catalogue Maker: UNA ARCE ([id number])[facility] (SBHLAB)[address] Creatinine [Mass/Vol] 1.78 mg/dL High 0.72-1.25 [facility] Comment on above: Performed By: #### L AB103, LAB17 ####Catalogue Maker: UNA ARCE ([id number])[facility] (SBHLAB)[address] GLOMERULAR FILTRATION RATE ML/MIN/1.73 SQ M.PREDICTED 36.0 mL/min/1.73m*2 Low >60.0 [facility] Comment on above: Result Comment: Calc ulation based on the Chronic Kidney Disease Epidemiology Collaboration (CKD-EPI) equation refit without adjustment for race Performed By: #### L AB103, LAB17 ####Catalogue Maker: UNA ARCE ([id number])[facility] (SBHLAB)[address] Glucose [Mass/Vol] 99 mg/dL Normal 82-115 [facility] Comment on above: Performed By: #### L AB103, LAB17 ####Catalogue Maker: UNA ARCE ([id number])[facility] (SBHLAB)[address] [place] [address] [place] Potassium [Moles/Vol] 3.4 mmol/L Low 3.5-5.1 [facility] Comment on above: Result Comment: [facility] potassium values may be up to 0.5 mmol/L lower than serum values. Performed By: #### L AB103, LAB17 ####Catalogue Maker: UNA ARCE ([id number])[facility] (SBHLAB)[address] Protein [Mass/Vol] 5.8 g/dL Low 6.4-8.3 [facility] Comment on above: Performed By: #### L AB103, LAB17 ####Catalogue Maker: UNA STAUFFERMELANIE ([id number])[facility] BASHIRN (SBHLAB)[address] Sodium [Moles/Vol] 142 mmol/L Normal 136-145 [facility] Comment on above: Performed By: #### L AB103, LAB17 ####Catalogue Maker: UNA BERMUDEZPEDRO ([id number])[facility] (SBHLAB)[address] Urea nitrogen [Mass/Vol] 26 mg/dL High 9-23 [facility] Comment on above: Performed By: #### Gilbert AB103, LAB17 ####Catalogue Maker: UNA BERMUDEZPEDRO ([id number])[facility] (SBHLAB)[address] Comprehensive metabolic 1998 panelon 04-08-2025 Albumin [Mass/Vol] 2.4 g/dL Low 3.4 - 4.8 g/dL [facility] ALP [Catalytic activity/Vol] 57 U/L 40 - 150 U/L [facility] ALT [Catalytic activity/Vol] U/L NINF - 40 U/L [facility] Anion gap [Moles/Vol] 10 mmol/L 3 - 13 mmol/L [facility] AST [Catalytic activity/Vol] 21 U/L NINF - 34 U/L [facility] Bilirubin [Mass/Vol] 0.6 mg/dL NINF - 1.2 mg/dL [facility] Calcium [Mass/Vol] 7.9 mg/dL Low 8.8 - 10. 0 mg/dL [facility] Chloride [Moles/Vol] 99 mmol/L 98 - 10 7 mmol/L [facility] CO2 [Moles/Vol] 33 mmol/L High 23 - 31 mmol/L [facility] Creatinine [Mass/Vol] 1.78 mg/dL High 0.72 - 1.25 mg/dL [facility] GFR/1.73 sq M.predicted (S/P/Bld) [Vol rate/Area] 36 mL/min Low - PINF [facility] Glucose [Mass/Vol] 99 mg/dL 82 - 115 mg/dL [facility] Interpretation and review of laboratory results Abnormal [facility] Potassium [Moles/Vol] 3.4 mmol/L Low 3.5 - 5.1 mmol/L [facility] Protein [Mass/Vol] 5.8 g/dL Low 6.4 - 8.3 g/dL [facility] Sodium [Moles/Vol] 142 mmol/L 136 - 145 mmol/L [facility] Urea nitrogen [Mass/Vol] 26 mg/dL High 9 - 23 mg/d L [facility] Consulton 04-08-2025 Consult Normal [facility] - Chemistry and C hemistry - challengeOrdered By: Renay Chan on 04-08-2025 Base excess Calc (Bld) [Moles/Vol] 11.2 mmol/L High -3.0 - 3.0 mmol/L [facility] CO2 (Bld) [Partial pressure] 75.1 mm[Hg] High [facility] CO2 [Moles/Vol] 41.2 mmol/L High 22.0 - 28.0 mmol/L [facility] HCO3 (Bld) [Moles/Vol] 38.9 mmol/L High 21.0 - 27.0 mmol/L [facility] Oxygen (Bld) [Partial pressure] 104 mm[Hg] [facility] pH (Bld) 7.332 [pH] Low 7.350 - 7.450 [facility] Laboratory - Chemistry and C hemistry - challengeOrdered By: Sallie Powell on 04-08-2025 Base excess Calc (Bld) [Moles/Vol] 9.9 mmol/L High -3.0 - 3.0 mmol/L [facility] CO2 (Bld) [Partial pressure] 80.1 mm[Hg] Critically high [facility] CO2 [Moles/Vol] 40.6 mmol/L High 22.0 - 28.0 mmol/L [facility] HCO3 (Bld) [Moles/Vol] 38.2 mmol/L High 21.0 - 27.0 mmol/L [facility] Oxygen (Bld) [Partial pressure] 92 mm[Hg] [facility] pH (Bld) 7.296 [pH] Low 7.350 - 7.450 [facility] Laboratory - Chemistry and C hemistry - challengeon 04-08-2025 Glucose [Mass/Vol] 100 mg/dL 70 - 100 mg/dL [facility] Magnesium [Mass/Vol] 1.6 mg/dL 1.6 - 2 .6 mg/dL [facility] Laboratory - Hematology and Cell countsOrdered By: Renay Chan on 04-08-2025 Hemoglobin (Bld) [Mass/Vol] 8.4 g/dL Low 13.5 - 17.5 g/dl [facility] Laboratory - Hematology and Cell countsOrdered By: Sallie Powell on 04-08-2025 Hemoglobin (Bld) [Mass/Vol] 8.6 g/dL Low 13.5 - 17.5 g/dl [facility] Laboratory - Hematology and Cell countson 04-08-2025 Anisocytosis Ql (Bld) Moderate Abnormal (none) [facility] Basophils (Bld) [#/Vol] 0.1 10*3/uL 0.0 - 0.2 10*3/uL [facility] Basophils/100 WBC (Bld) 1 % 0 - 2 % [facility] Hypochromia Ql (Bld) Moderate Abnormal (none) [facility] Lymphocytes (Bld) [#/Vol] 1.8 10*3/uL 1.0 - 4.3 10*3/uL [facility] Lymphocytes/100 WBC (Bld) 14 % Low 15 - 45 % [facility] Monocytes (Bld) [#/Vol] 1.6 10*3/uL High 0.0 - 0.9 10*3/uL [facility] Monocytes/100 WBC (Bld) 12 % 5 - 13 % [facility] Neutrophils (Bld) [#/Vol] 9.6 10*3/uL High 1.8 - 7.5 10*3/uL [facility] Ovalocytes LM Ql (Bld) Slight Abnormal (none) [facility] Poikilocytosis LM Ql (Bld) Moderate Abnormal (none) [facility] RBC morphology finding Nom (Bld) abnormal [facility] Segmented neutrophils/100 WBC (Bld) 74 % 38 - 82 % [facility] Stomatocytes LM Ql (Bld) Moderate Abnormal (none) [facility] MAGNESIUMon 04-08-2025 Magnesium [Mass/Vol] 1.6 mg/dL Normal 1.6-2.6 [facility] Comment on above: Result Comment: YARELI R COMMENTS:Higher values can be expected in females during menses. Performed By: #### L AB103, LAB17 ####Catalogue Maker: UNA ARCE ([id number])[facility] (SBHLAB)[address] MANUAL DIFFERENTIAL (CELLAVI BANDAR)on 04-08-2025 ANISOCYTOSIS PRESENCE IN BLOOD BY LIGHT MICROSCOPY Moderate Abnormal (none) [facility] Comment on above: Performed By: #### L [id number], [id number] ####Catalogue Maker: UNA ARCE ([id number])[facility] (SBHLAB)[address] BAND NEUTROPHILS TOTAL PER COUNTED LEUKOCYTES BY MANUAL COUNT Normal [facility] Comment on above: Performed By: #### L [id number], [id number] ####Catalogue Maker: UNA ARCE ([id number])[facility] (SBHLAB)[address] [place] [address] [place] BASOPHILS (10*3/UL) IN BLOOD-CELLAVISION 0.1 10*3/uL Normal 0.0-0.2 [facility] Comment on above: Performed By: #### L [id number], [id number] ####Catalogue Maker: UNA ARCE ([id number])[facility] [place] (SBHLAB)[address] [place] [address] [place] BASOPHILS TOTAL PER COUNTED LEUKOCYTES BY MANUAL COUNT 1 Normal [facility] Comment on above: Performed By: #### L [id number], [id number] ####Catalogue Maker: UNA ARCE ([id number])[facility] [place] (SBHLAB)[address] [place] [address] [place] BASOPHILS/100 LEUKOCYTES IN BLOOD-CELLAVISION 1 % Normal 0-2 [facility] Comment on above: Performed By: #### L [id number], [id number] ####Catalogue Maker: UNA ARCE ([id number])[facility] [place] (SBHLAB)[address] [place] [address] [place] BLASTS TOTAL PER COUNTED LEUKOCYTES BY MANUAL COUNT Normal [facility] Comment on above: Performed By: #### L [id number], [id number] ####Catalogue Maker: UNA STAUFFERMELANIE ([id number])[facility] [place] (SBHLAB)[address] [place] [address] [place] EOSINOPHILS TOTAL PER COUNTED LEUKOCYTES BY MANUAL COUNT Normal [facility] Comment on above: Performed By: #### L [id number], [id number] ####Catalogue Maker: UNA BERMUDEZSILASMELANIE ([id number])[facility] [place] (SBHLAB)[address] HYPOCHROMIA (PRESENCE) IN BLOOD BY LIGHT MICROSCOPY Moderate Abnormal (none) [facility] Comment on above: Performed By: #### L [id number], [id number] ####Catalogue Maker: UNA STAUFFERMELANIE ([id number])[facility] [place] (SBHLAB)[address] [place] [address] [place] LYMPHOCYTES (10*3/UL) IN BLOOD-CELLAVISION 1.8 10*3/uL Normal 1.0-4.3 [facility] Comment on above: Performed By: #### L [id number], [id number] ####Catalogue Maker: UNA ARCE ([id number])[facility] [place] (SBHLAB)[address] [place] [address] [place] LYMPHOCYTES TOTAL PER COUNTED LEUKOCYTES BY MANUAL COUNT 14 Normal [facility] Comment on above: Performed By: #### L [id number], [id number] ####Catalogue Maker: UNA ARCE ([id number])[facility] [place] (SBHLAB)[address] [place] [address] [place] LYMPHOCYTES/100 LEUKOCYTES IN BLOOD-CELLAVISION 14 % Low 15-45 [facility] Comment on above: Performed By: #### L [id number], [id number] ####Catalogue Maker: UNA ARCE ([id number])[facility] [place] (SBHLAB)[address] [place] [address] [place] METAMYELOCYTES TOTAL PER COUNTED LEUKOCYTES BY MANUAL COUNT Normal [facility] Comment on above: Performed By: #### L [id number], [id number] ####Catalogue Maker: UNA MOHRCER ([id number])[facility] [place] (SBHLAB)[address] [place] [address] [place] MONOCYTES (10*3/UL) IN BLOOD-CELLAVISION 1.6 10*3/uL High 0.0-0.9 [facility] Comment on above: Performed By: #### L [id number], [id number] ####Catalogue Maker: UNA MOHRCER ([id number])[facility] [place] (SBHLAB)[address] [place] [address] [place] MONOCYTES TOTAL PER COUNTED LEUKOCYTES BY MANUAL COUNT 12 Normal [facility] Comment on above: Performed By: #### L [id number], [id number] ####Catalogue Maker: UNA ARCE ([id number])[facility] [place] (SBHLAB)[address] [place] [address] [place] MONOCYTES/100 LEUKOCYTES IN BLOOD-LUCIANA 12 % Normal -13 [facility] Comment on above: Performed By: #### L [id number], [id number] ####Catalogue Maker: UNA ARCE ([id number])[facility] [place] (SBHLAB)[address] [place] [address] [place] MYELOCYTES COUNTED BY MANUAL COUNT [facility] Comment on above: Performed By: #### L [id number], [id number] ####Catalogue Maker: UNA MOHRCER ([id number])[facility] [place] (SBHLAB)[address] [place] [address] [place] NEUTROPHILS TOTAL PER COUNTED LEUKOCYTES BY MANUAL COUNT 75 Normal [facility] Comment on above: Performed By: #### L [id number], [id number] ####Catalogue Maker: UNA MOHRCER ([id number])[facility] [place] (SBHLAB)[address] [place] [address] [place] OVALOCYTES PRESENCE IN BLOOD BY LIGHT MICROSCOPY Slight Abnormal (none) [facility] Comment on above: Performed By: #### L [id number], [id number] ####Catalogue Maker: UNA ARCE ([id number])[facility] [place] (SBHLAB)[address] [place] [address] [place] POIKILOCYTOSIS (PRESENCE) IN BLOOD BY LIGHT MICROSCOPY Moderate Abnormal (none) [facility] Comment on above: Performed By: #### L [id number], [id number] ####Catalogue Maker: UNA ARCE ([id number])[facility] (SBHLAB)[address] [place] [address] [place] PROMYELOCYTES TOTAL PER COUNTED LEUKOCYTES BY MANUAL COUNT Normal [facility] Comment on above: Performed By: #### L [id number], [id number] ####Catalogue Maker: UNA ARCE ([id number])[facility]ENTERAngel [facility] (SBHLAB)[address] [place] [address] [place] RBC MORPHOLOGY IN BLOOD abnormal Normal [facility] Comment on above: Performed By: #### L [id number], [id number] ####Catalogue Maker: UNA ARCE ([id number])[facility] (SBHLAB)[address] [place] [address] [place] SEGMENTED NEUTROPHILS (10*3/UL) IN BLOOD-CELLAVISION 9.6 10*3/uL High 1.8-7.5 [facility] Comment on above: Performed By: #### L [id number], [id number] ####Catalogue Maker: UNA ARCE ([id number])[facility] CENTERAngel BARBCHRISTINAN (SBHLAB)[address] [place] [address] [place] SEGMENTED NEUTROPHILS/100 LEUKOCYTES-CE 74 % Normal 38-82 [facility] Comment on above: Performed By: #### L [id number], [id number] ####Catalogue Maker: UNA ARCE ([id number])[facility]ENTERAngel [place] (SBHLAB)[address] STOMATOCYTES IN BLOOD BY LIGHT MICROSCOPY Moderate Abnormal (none) [facility] Comment on above: Performed By: #### L [id number], [id number] ####Catalogue Maker: UNA ARCE ([id number])[facility] (SBHLAB)[address] UNCLASSIFIED CELLS TOTAL PER COUNTED LEUKOCYTES BY MANUAL COUNT Normal [facility] Comment on above: Performed By: #### L [id number], [id number] ####Catalogue Maker: UNA ARCE ([id number])[facility] (SBHLAB)[address] VARIANT LYMPHOCYTES TOTAL PER COUNTED LEUKOCYTES BY MANUAL COUNT Normal [facility] Comment on above: Performed By: #### L [id number], [id number] ####Catalogue Maker: UNA ARCE ([id number])[facility] (SBHLAB)[address] [place] [address] Magnesium [Mass/Vol]on 04-08 Interpretation and review of laboratory results Normal [facility] No Panel InformationOrdered By: Renay Chan on 04-08-2025 Amount Of Oxygen 0.40 [facility] ander Interpretation and review of laboratory results Abnormal [facility] Source Of Oxygen Non-Invasive Ventilator [facility] No Panel InformationOrdered By: Sallie Powell on 04-08-2025 Amount Of Oxygen 4 liters [facility] Interpretation and review of laboratory results Abnormal [facility] Source Of Oxygen Nasal Cannula (LPM) [facility] No Panel Informationon 04-08 Interpretation and review of laboratory results Normal [facility] Basophils Manual 1 [facility] [place] [facility] Interpretation and review of laboratory results Abnormal [facility] Lymphocytes Manual 14 [facility] Monocytes Manual 12 [facility] Neutrophils Manual 75 [facility] Progress Noteon 04-08-2025 Progress Note Normal [facility] Progress Note Normal [facility] Progress Note Normal [facility] Progress Note Normal [facility] Progress Note Normal [facility] X[facility] Chest Single viewon 04-08 [facility] RADIOLOGY [facility] RADIOLOGY [facility] Radiology Study observation (narrative) [facility] Chest Single viewOrdered By: Nelson Sow on 04-08-2025 [facility] Work Phone: CBC W Auto Differential pane l (Bld)Ordered By: Sharita Beck on 04-07-2025 Erythrocyte distribution width (RBC) [Ratio] 20.5 % High 11.5 - 15.0 % [facility] Hematocrit (Bld) [Volume fraction] 27.2 % Low 40.0 - 52.0 % [facility] Hemoglobin (Bld) [Mass/Vol] 7.4 g/dL Low 13.0 - 18.0 g/dL [facility] MCH (RBC) [Entitic mass] 21.8 pg Low 26. 0 - 34.0 pg [facility] MCHC (RBC) [Mass/Vol] 27.2 % Low 30.5 - 36.0 % [facility] MCV (RBC) [Entitic vol] 80 fL 77.0 - 99.0 fL [facility] Platelet mean volume (Bld) [Entitic vol] 9.8 fL 9.0 - 12.7 fL [facility] [facility] Platelets (Bld) [#/Vol] 346 10*3/uL 140 - 440 10*3/uL [facility] RBC (Bld) [#/Vol] 3.4 10*6/uL Low 4.40 - 5.9 0 10*6/uL [facility] WBC (Bld) [#/Vol] 11.5 10*3/uL High 3.6 - 10.7 10*3/uL [facility] CBC WITH AUTO DIFFERENTIALon 04-07-2025 Erythrocyte distribution width (RBC) [Ratio] 20.5 % High 11.5-15.0 [facility] Comment on above: Performed By: #### L [id number], [id number] ####Catalogue Maker: UNA ARCE ([id number])[facility] ([facility])[address] [place] [address] Hematocrit (Bld) [Volume fraction] 27.2 % Low 40.0-52.0 [facility] Comment on above: Performed By: #### L [id number], [id number] ####Catalogue Maker: UNA ARCE ([id number])[facility] SANCHEZLUIS (SBHLAB)[address] Hemoglobin (Bld) [Mass/Vol] 7.4 g/dL Low 13.0-18.0 [facility] Comment on above: Performed By: #### L [id number], [id number] ####Catalogue Maker: UNA ARCE ([id number])[facility]A [facility]ITALN (SBHLAB)[address] MCH (RBC) [Entitic mass] 21.8 pg Low 26.0-34.0 [facility] Comment on above: Performed By: #### L [id number], [id number] ####Catalogue Maker: UNA ARCE ([id number])[facility]ENTERAngel [place] (SBHLAB)[address] MCHC 27.2 % Low 30.5-36.0 [facility] Comment on above: Performed By: #### L [id number], [id number] ####Catalogue Maker: UNA ARCE ([id number])[facility]ENTERAngel SANCHEZGUADALUPE COUNTY HOSPITALMarisol (SBHLAB)[address] MCV (RBC) [Entitic vol] 80.0 fL Normal 77.0-99.0 [facility] Comment on above: Performed By: #### L [id number], [id number] ####Catalogue Maker: UNA ARCE ([id number])[facility]ENTERAngel [facility]ALU[facility]OS[facility]ITALN (SBHLAB)[address] Platelet mean volume (Bld) [Entitic vol] 9.8 fL Normal 9.0-12.7 [facility] Comment on above: Performed By: #### L [id number], [id number] ####Catalogue Maker: UNA ARCE ([id number])[facility]ENTERAngel S[facility]HEZGUADALU[facility] HOSPITALN (SBHLAB)[address] [place] [address] [place] Platelets (Bld) [#/Vol] 346 10*3/uL Normal 140-440 [facility] Comment on above: Performed By: #### L [id number], [id number] ####Catalogue Maker: UNA ARCE ([id number])[facility]A [place] (SBHLAB)[address] RBC (Bld) [#/Vol] 3.40 10*6/uL Low 4.40-5.90 [facility] Comment on above: Performed By: #### L [id number], [id number] ####Catalogue Maker: UNA ARCE ([id number])[facility] [place] (SBHLAB)[address] WBC (Bld) [#/Vol] 11.5 10*3/uL High 3.6-10.7 [facility] Comment on above: Performed By: #### L [id number], [id number] ####Catalogue Maker: UNA ARCE ([id number])[facility] [place] (SBHLAB)[address] COMPREHENSIVE METABOLIC PANE Anant 04-07-2025 Albumin [Mass/Vol] 2.4 g/dL Low 3.4-4.8 [facility] Comment on above: Performed By: #### L [id number], LAB17 ####Catalogue Maker: UNA ARCE ([id number])[facility]A [place] (SBHLAB)[address] ALP [Catalytic activity/Vol] 57 U/L Normal 40-150 [facility] Comment on above: Performed By: #### L AB103, LAB17 ####Catalogue Maker: UNA ARCE ([id number])[facility]A [place] (SBHLAB)[address] ALT [Catalytic activity/Vol] U/L Normal <40 [facility] Comment on above: Performed By: #### L AB103, LAB17 ####Catalogue Maker: UNA ARCE ([id number])[facility]A [place] (SBHLAB)[address] Anion gap [Moles/Vol] 14 mmol/L High 3-13 [facility] Comment on above: Performed By: #### L AB103, LAB17 ####Catalogue Maker: UNA ARCE ([id number])[facility]ENTERA MCKAYN (SBHLAB)[address] AST [Catalytic activity/Vol] 23 U/L Normal <34 [facility] Comment on above: Performed By: #### L AB103, LAB17 ####Catalogue Maker: UNA ARCE ([id number])[facility]ENTERA [place] (SBHLAB)[address] Bilirubin [Mass/Vol] 0.7 mg/dL Normal <1.2 [facility] Comment on above: Performed By: #### L AB103, LAB17 ####Catalogue Maker: UNA ARCE ([id number])[facility]ENTERAngel BASHIRN (SBHLAB)[address] Calcium [Mass/Vol] 7.9 mg/dL Low 8.8-10.0 [facility] Comment on above: Performed By: #### L AB103, LAB17 ####Catalogue Maker: UNA ARCE ([id number])[facility]ENTERAngel [place]ERT[place] (SBHLAB)[address] Chloride [Moles/Vol] 98 mmol/L Normal 98-107 [facility] Comment on above: Performed By: #### L AB103, LAB17 ####Catalogue Maker: UNA ARCE ([id number])[facility]A [place] (SBHLAB)[address] [place] [address] [place] CO2 [Moles/Vol] 31 mmol/L Normal 23-31 [facility] Comment on above: Performed By: #### L AB103, LAB17 ####Catalogue Maker: UNA ARCE ([id number])[facility]A [place] (SBHLAB)[address] [place] [address] [place] Creatinine [Mass/Vol] 1.63 mg/dL High 0.72-1.25 [facility] Comment on above: Performed By: #### L DERICK, LAB17 ####Catalogue Maker: UNA ARCE ([id number])[facility] (HLAB)[address] [place] [address] [place] GLOMERULAR FILTRATION RATE ML/MIN/1.73 SQ M.PREDICTED 40.0 mL/min/1.73m*2 Low >60.0 [facility] Comment on above: Result Comment: Calc ulation based on the Chronic Kidney Disease Epidemiology Collaboration (CKD-EPI) equation refit without adjustment for race Performed By: #### Gilbert SEPULVEDA, LAB17 ####Catalogue Maker: UNA ARCE ([id number])[facility] ([facility])[address] Glucose [Mass/Vol] 88 mg/dL Normal 82-115 [facility] Comment on above: Performed By: #### Gilbert SEPULVEDA, LAB17 ####Catalogue Maker: UNA ARCE ([id number])[facility] ([facility])[address] Potassium [Moles/Vol] 3.6 mmol/L Normal 3.5-5.1 [facility] Comment on above: Result Comment: [facility] potassium values may be up to 0.5 mmol/L lower than serum values. Performed By: #### Gilbert SEPULVEDA, LAB17 ####Catalogue Maker: UNA ARCE ([id number])[facility] (SBHLAB)[address] Protein [Mass/Vol] 5.7 g/dL Low 6.4-8.3 [facility] Comment on above: Performed By: #### L AB103, LAB17 ####Catalogue Maker: UNA ARCE ([id number])[facility] (HLAB)[address] Sodium [Moles/Vol] 143 mmol/L Normal 136-145 [facility] Comment on above: Performed By: #### L AB103, LAB17 ####Catalogue Maker: UNA ARCE ([id number])[facility] (SBHLAB)[address] Urea nitrogen [Mass/Vol] 26 mg/dL High 9-23 [facility] Comment on above: Performed By: #### L AB103, LAB17 ####Catalogue Maker: UNA ARCE ([id number])[facility] (SBHL[facility])[address] Comprehensive metabolic 1998 panelon 04-07-2025 Albumin [Mass/Vol] 2.4 g/dL Low 3.4 - 4.8 g/dL [facility] ALP [Catalytic activity/Vol] 57 U/L 40 - 150 U/L [facility] ALT [Catalytic activity/Vol] U/L NINF - 40 U/L [facility] Anion gap [Moles/Vol] 14 mmol/L High 3 - 13 mmol/L [facility] AST [Catalytic activity/Vol] 23 U/L NINF - 34 U/L [facility] Bilirubin [Mass/Vol] 0.7 mg/dL NINF - 1.2 mg/dL [facility] Calcium [Mass/Vol] 7.9 mg/dL Low 8.8 - 10. 0 mg/dL [facility] Chloride [Moles/Vol] 98 mmol/L 98 - 10 7 mmol/L [facility] CO2 [Moles/Vol] 31 mmol/L 23 - 31 mmol/L [facility] Creatinine [Mass/Vol] 1.63 mg/dL High 0.72 - 1.25 mg/dL [facility] GFR/1.73 sq M.predicted (S/P/Bld) [Vol rate/Area] 40 mL/min Low - PINF [facility] Glucose [Mass/Vol] 88 mg/dL 82 - 115 mg/dL [facility] Interpretation and review of laboratory results Abnormal [facility] Potassium [Moles/Vol] 3.6 mmol/L 3.5 - 5.1 mmol/L [facility] Protein [Mass/Vol] 5.7 g/dL Low 6.4 - 8.3 g/dL [facility] Sodium [Moles/Vol] 143 mmol/L 136 - 145 mmol/L [facility] Urea nitrogen [Mass/Vol] 26 mg/dL High 9 - 23 mg/d L [facility] Consulton 04-07-2025 Consult Normal [facility] Laboratory - Chemistry and C hemistry - challengeon 04-07-2025 Magnesium [Mass/Vol] 1.7 mg/dL 1.6 - 2 .6 mg/dL [facility] Laboratory - Hematology and Cell countson 04-07-2025 Anisocytosis Ql (Bld) Slight Abnormal (none) [facility] Eosinophils (Bld) [#/Vol] 0.3 10*3/uL 0.0 - 0.5 10*3/uL [facility] Eosinophils/100 WBC (Bld) 3 % 0 - 6 % [facility] Hypochromia Ql (Bld) Moderate Abnormal (none) [facility] Lymphocytes (Bld) [#/Vol] 0.9 10*3/uL Low 1.0 - 4.3 10*3/uL [facility] Lymphocytes/100 WBC (Bld) 8 % Low 15 - 45 % [facility] Monocytes (Bld) [#/Vol] 0.8 10*3/uL 0.0 - 0.9 10*3/uL [facility] Monocytes/100 WBC (Bld) 7 % 5 - 13 % [facility] Neutrophils (Bld) [#/Vol] 9.5 10*3/uL High 1.8 - 7.5 10*3/uL [facility] Nucleated RBC/100 WBC (Bld) [Ratio] 1 % 0 - 2 % [facility] Poikilocytosis LM Ql (Bld) Slight Abnormal (none) [facility] RBC morphology finding Nom (Bld) abnormal [facility] Segmented neutrophils/100 WBC (Bld) 83 % High 38 - 82 % [facility] Stomatocytes LM Ql (Bld) Moderate Abnormal (none) [facility] MAGNESIUMon 04-07-2025 Magnesium [Mass/Vol] 1.7 mg/dL Normal 1.6-2.6 [facility] Comment on above: Result Comment: ORDE R COMMENTS:Higher values can be expected in females during menses. Performed By: #### L AB103, LAB17 ####Catalogue Maker: UNA ARCE ([id number])[facility] [place] (SBHLAB)[address] [place] [address] [place] MANUAL DIFFERENTIAL (CELLAVI BANDAR)on 04-07-2025 ANISOCYTOSIS PRESENCE IN BLOOD BY LIGHT MICROSCOPY Slight Abnormal (none) [facility] Comment on above: Performed By: #### L [id number], [id number] ####Catalogue Maker: UNA ARCE ([id number])[facility] [place] (SBHLAB)[address] BAND NEUTROPHILS TOTAL PER COUNTED LEUKOCYTES BY MANUAL COUNT Normal [facility] Comment on above: Performed By: #### L [id number], [id number] ####Catalogue Maker: UNA ARCE ([id number])[facility] [place] (SBHLAB)[address] BASOPHILS TOTAL PER COUNTED LEUKOCYTES BY MANUAL COUNT Normal [facility] Comment on above: Performed By: #### L [id number], [id number] ####Catalogue Maker: UNA ARCE ([id number])[facility] [place] (SBHLAB)[address] BLASTS TOTAL PER COUNTED LEUKOCYTES BY MANUAL COUNT Normal [facility] Comment on above: Performed By: #### L [id number], [id number] ####Catalogue Maker: UNA ARCE ([id number])[facility] [place] (SB[facility]AB)[address] [place] [address] [place] EOSINOPHILS (10*3/UL) IN BLOOD-CELLAVISION 0.3 10*3/uL Normal 0.0-0.5 [facility] Comment on above: Performed By: #### L [id number], [id number] ####Catalogue Maker: UNA ARCE ([id number])[facility] [place] (SB[facility])[address] [place] [address] [place] EOSINOPHILS TOTAL PER COUNTED LEUKOCYTES BY MANUAL COUNT 3 High 0-1 [facility] Comment on above: Performed By: #### L [id number], [id number] ####Catalogue Maker: UNA ARCE ([id number])[facility] [place] (SBHLAB)[address] [place] [address] [place] EOSINOPHILS/100 LEUKOCYTES IN BLOOD-CELLAVISION 3 % Normal 0-6 [facility] Comment on above: Performed By: #### L [id number], [id number] ####Catalogue Maker: UNA ARCE ([id number])[facility] [place] (SB[facility]AB)[address] [place] [address] [place] HYPOCHROMIA (PRESENCE) IN BLOOD BY LIGHT MICROSCOPY Moderate Abnormal (none) [facility] Comment on above: Performed By: #### L [id number], [id number] ####Catalogue Maker: UNA ARCE ([id number])[facility] (SBHLAB)[address] [place] [address] [place] LYMPHOCYTES (10*3/UL) IN BLOOD-CELLAVISION 0.9 10*3/uL Low 1.0-4.3 [facility] Comment on above: Performed By: #### L [id number], [id number] ####Catalogue Maker: UNA ARCE ([id number])[facility] [place] (SB[facility])[address] [place] [address] [place] LYMPHOCYTES TOTAL PER COUNTED LEUKOCYTES BY MANUAL COUNT 8 Normal [facility] Comment on above: Performed By: #### L [id number], [id number] ####Catalogue Maker: UNA ARCE ([id number])[facility] [place] (SB[facility]AB)[address] [place] [address] [place] LYMPHOCYTES/100 LEUKOCYTES IN BLOOD-CELLAVISION 8 % Low 15-45 [facility] Comment on above: Performed By: #### L [id number], [id number] ####Catalogue Maker: UNA ARCE ([id number])[facility] [place] (SB[facility])[address] [place] [address] [place] METAMYELOCYTES TOTAL PER COUNTED LEUKOCYTES BY MANUAL COUNT Normal [facility] Comment on above: Performed By: #### L [id number], [id number] ####Catalogue Maker: UNA ARCE ([id number])[facility] [place] (SBHLAB)[address] [place] [address] [place] MONOCYTES (10*3/UL) IN BLOOD-CELLAVISION 0.8 10*3/uL Normal 0.0-0.9 [facility] Comment on above: Performed By: #### L [id number], [id number] ####Catalogue Maker: UNA MOHRCER ([id number])[facility] (SBHLAB)[address] [place] [address] [place] MONOCYTES TOTAL PER COUNTED LEUKOCYTES BY MANUAL COUNT 7 Normal [facility] Comment on above: Performed By: #### L [id number], [id number] ####Catalogue Maker: UNA MOHRCER ([id number])[facility] (SBHLAB)[address] [place] [address] [place] MONOCYTES/100 LEUKOCYTES IN BLOOD-LUCIANA 7 % Normal 5-13 [facility] Comment on above: Performed By: #### L [id number], [id number] ####Catalogue Maker: UNA ARCE ([id number])[facility] [place] (SB[facility])[address] [place] [address] [place] MYELOCYTES COUNTED BY MANUAL COUNT [facility] Comment on above: Performed By: #### L [id number], [id number] ####Catalogue Maker: UNA ARCE ([id number])[facility] [place] (SB[facility]AB)[address] [place] [address] [place] NEUTROPHILS TOTAL PER COUNTED LEUKOCYTES BY MANUAL COUNT 86 Normal [facility] Comment on above: Performed By: #### L [id number], [id number] ####Catalogue Maker: UNA MOHRCER ([id number])[facility] [place] (SBHLAB)[address] [place] [address] [place] NUCLEATED ERYTHROCYTES/100 LEUKOCTES IN BLOOD-CELLAVISION 1 % Normal 0-2 [facility] Comment on above: Performed By: #### L [id number], [id number] ####Catalogue Maker: UNA MOHRCER ([id number])[facility] [place] (SB[facility])[address] [place] [address] [place] POIKILOCYTOSIS (PRESENCE) IN BLOOD BY LIGHT MICROSCOPY Slight Abnormal (none) [facility] Comment on above: Performed By: #### L [id number], [id number] ####Catalogue Maker: UNA ARCE ([id number])[facility] [place] (SB[facility])[address] [place] [address] [place] PROMYELOCYTES TOTAL PER COUNTED LEUKOCYTES BY MANUAL COUNT Normal [facility] Comment on above: Performed By: #### L [id number], [id number] ####Catalogue Maker: UNA ARCE ([id number])[facility]A [facility]BGUADALU[facility]ITALN (SBHLAB)[address] [place] [address] [place] RBC MORPHOLOGY IN BLOOD abnormal Normal [facility] Comment on above: Performed By: #### L [id number], [id number] ####Catalogue Maker: UNA ARCE ([id number])[facility] (SBHLAB)[address] [place] [address] [place] SEGMENTED NEUTROPHILS (10*3/UL) IN BLOOD-CELLAVISION 9.5 10*3/uL High 1.8-7.5 [facility] Comment on above: Performed By: #### L [id number], [id number] ####Catalogue Maker: UNA ARCE ([id number])[facility]A BARBCHRISTINAN (SBHLAB)[address] [place] [address] [place] SEGMENTED NEUTROPHILS/100 LEUKOCYTES-CE 83 % High 38-82 [facility] Comment on above: Performed By: #### L [id number], [id number] ####Catalogue Maker: UNA ARCE ([id number])[facility] [place] (SB[facility])[address] [place] [address] [place] STOMATOCYTES IN BLOOD BY LIGHT MICROSCOPY Moderate Abnormal (none) [facility] Comment on above: Performed By: #### L [id number], [id number] ####Catalogue Maker: UNA ARCE ([id number])[facility] [place] (SB[facility])[address] UNCLASSIFIED CELLS TOTAL PER COUNTED LEUKOCYTES BY MANUAL COUNT Normal [facility] Comment on above: Performed By: #### L [id number], [id number] ####Catalogue Maker: UNA ARCE ([id number])[facility]A LAURAGUADALUPE [facility]OSPITALN (SBHLAB)[address] VARIANT LYMPHOCYTES TOTAL PER COUNTED LEUKOCYTES BY MANUAL COUNT Normal [facility] Comment on above: Performed By: #### L [id number], [id number] ####Catalogue Maker: UNA ARCE ([id number])[facility] ([facility])[address] Magnesium [Mass/Vol]on 04-07 Interpretation and review of laboratory results Normal [facility] No Panel Informationon 04-07 Eosinophils Manual 3 High 0 - 1 [facility] Lymphocytes Manual 8 [facility] Monocytes Manual 7 [facility] Neutrophils Manual 86 [facility] No Panel InformationOrdered By: Sharita Beck on 04-07-2025 Interpretation and review of laboratory results Abnormal [facility] Progress Noteon 04-07-2025 Progress [facility] Progress Note Normal [facility] Progress [facility] Normal [facility] Progress [facility] Normal [facility] [id number] 04-06-2025 [id number] Normal [facility] CBC W Auto Differential pane l (Bld)Ordered By: Annmarie Zuñiga on 04-06-2025 Hematocrit (Bld) [Volume fraction] 27.2 % Low 40.0 - 52.0 % [facility] Hemoglobin (Bld) [Mass/Vol] 7.6 g/dL Low 13.0 - 18.0 g/dL [facility] MCH (RBC) [Entitic mass] 22 pg Low 26. 0 - 34.0 pg [facility] MCV (RBC) [Entitic vol] 78.6 fL 77.0 - 99.0 fL [facility] RBC (Bld) [#/Vol] 3.46 10*6/uL Low 4.40 - 5.9 0 10*6/uL [facility] CBC WITH AUTO DIFFERENTIALon 04-06-2025 Erythrocyte distribution width (RBC) [Ratio] 20.5 % High 11.5-15.0 [facility] Comment on above: Performed By: #### L [id number], [id number] ####Catalogue Maker: UNA ARCE ([id number])[facility] (SBHLAB)[address] Hematocrit (Bld) [Volume fraction] 27.2 % Low 40.0-52.0 [facility] Comment on above: Performed By: #### L [id number], [id number] ####Catalogue Maker: UNA STAUFFERMELANIE ([id number])[facility] (SBAB)[address] Hemoglobin (Bld) [Mass/Vol] 7.6 g/dL Low 13.0-18.0 [facility] Comment on above: Performed By: #### L [id number], [id number] ####Catalogue Maker: UNA ARCE ([id number])[facility] (SBHLAB)[address] MCH (RBC) [Entitic mass] 22.0 pg Low 26.0-34.0 [facility] Comment on above: Performed By: #### L [id number], [id number] ####Catalogue Maker: UNA ARCE ([id number])[facility] (SBHLAB)[address] MCHC 27.9 % Low 30.5-36.0 [facility] Comment on above: Performed By: #### L [id number], [id number] ####Catalogue Maker: UNA ARCE ([id number])[facility] (SBHLAB)[address] MCV (RBC) [Entitic vol] 78.6 fL Normal 77.0-99.0 [facility] Comment on above: Performed By: #### L [id number], [id number] ####Catalogue Maker: UNA STAUFFERMELANIE ([id number])[facility] (SBHLAB)[address] Platelet mean volume (Bld) [Entitic vol] 9.7 fL Normal 9.0-12.7 [facility] Comment on above: Performed By: #### L [id number], [id number] ####Catalogue Maker: UNA BERMUDEZPEDRO ([id number])[facility] [place] (SBHLAB)[address] Platelets (Bld) [#/Vol] 344 10*3/uL Normal 140-440 [facility] Comment on above: Performed By: #### L [id number], [id number] ####Catalogue Maker: UNA ARCE ([id number])[facility] CENTERAngel SANCHEZGUADALU[facility]ITALN (SBHLAB)[address] RBC (Bld) [#/Vol] 3.46 10*6/uL Low 4.40-5.90 [facility] Comment on above: Performed By: #### L [id number], [id number] ####Catalogue Maker: UNA ARCE ([id number])[facility] CENTERAngel [facility]ZGUADALU[facility]N (SBHLAB)[address] WBC (Bld) [#/Vol] 10.3 10*3/uL Normal 3.6-10.7 [facility] Comment on above: Performed By: #### L [id number], [id number] ####Catalogue Maker: UNA ARCE ([id number])[facility]BGUADALU[facility]N (SBHLAB)[address] COMPREHENSIVE METABOLIC PANE Anant 04-06-2025 Albumin [Mass/Vol] 2.6 g/dL Low 3.4-4.8 [facility] Comment on above: Performed By: #### L AB103, LAB17 ####Catalogue Maker: UNA ARCE ([id number])[facility] [place] (SB[facility])[address] ALP [Catalytic activity/Vol] 63 U/L Normal 40-150 [facility] Comment on above: Performed By: #### L AB103, LAB17 ####Catalogue Maker: UNA ARCE ([id number])[facility] [place] (SBHLAB)[address] ALT [Catalytic activity/Vol] 6 U/L Normal <40 [facility] Comment on above: Performed By: #### L AB103, LAB17 ####Catalogue Maker: UNA ARCE ([id number])[facility] [place] (SB[facility])[address] Anion gap [Moles/Vol] 13 mmol/L Normal 3-13 [facility] Comment on above: Performed By: #### L AB103, LAB17 ####Catalogue Maker: UNA ARCE ([id number])[facility] [place] (SB[facility])[address] AST [Catalytic activity/Vol] 25 U/L Normal <34 [facility] Comment on above: Performed By: #### L AB103, LAB17 ####Catalogue Maker: UNA ARCE ([id number])[facility] [place] (SB[facility])[address] Bilirubin [Mass/Vol] 1.7 mg/dL High <1.2 [facility] Comment on above: Performed By: #### L AB103, LAB17 ####Catalogue Maker: UNA ARCE ([id number])[facility] [place] (SB[facility])[address] Calcium [Mass/Vol] 8.2 mg/dL Low 8.8-10.0 [facility] Comment on above: Performed By: #### L AB103, LAB17 ####Catalogue Maker: UNA ARCE ([id number])[facility] [place] (SB[facility])[address] [place] [address] [place] Chloride [Moles/Vol] 104 mmol/L Normal 98-107 [facility] Comment on above: Performed By: #### L AB103, LAB17 ####Catalogue Maker: UNA MOHRCER ([id number])[facility] (SBHLAB)[address] CO2 [Moles/Vol] 26 mmol/L Normal 23-31 [facility] Comment on above: Performed By: #### L AB103, LAB17 ####Catalogue Maker: UNA MOHRCER ([id number])[facility] (SBHLAB)[address] Creatinine [Mass/Vol] 1.44 mg/dL High 0.72-1.25 [facility] Comment on above: Performed By: #### L AB103, LAB17 ####Catalogue Maker: UNA STAUFFERMELANIE ([id number])[facility] (SBHLAB)[address] GLOMERULAR FILTRATION RATE ML/MIN/1.73 SQ M.PREDICTED 46.4 mL/min/1.73m*2 Low >60.0 [facility] Comment on above: Result Comment: Calc ulation based on the Chronic Kidney Disease Epidemiology Collaboration (CKD-EPI) equation refit without adjustment for race Performed By: #### L AB103, LAB17 ####Catalogue Maker: UNA ARCE ([id number])[facility] (SBHLAB)[address] Glucose [Mass/Vol] 98 mg/dL Normal 82-115 [facility] Comment on above: Performed By: #### L AB103, LAB17 ####Catalogue Maker: UNA ARCE ([id number])[facility] (SBHLAB)[address] [place] [address] [place] Potassium [Moles/Vol] 4.2 mmol/L Normal 3.5-5.1 [facility] Comment on above: Result Comment: [facility] potassium values may be up to 0.5 mmol/L lower than serum values. Performed By: #### L AB103, LAB17 ####Catalogue Maker: UNA ARCE ([id number])[facility] [place] (SBHLAB)[address] Protein [Mass/Vol] 6.1 g/dL Low 6.4-8.3 [facility] Comment on above: Performed By: #### L AB103, LAB17 ####Catalogue Maker: UNA ARCE ([id number])[facility]ENTER[facility] [place] (SBHLAB)[address] Sodium [Moles/Vol] 143 mmol/L Normal 136-145 [facility] Comment on above: Performed By: #### L AB103, LAB17 ####Catalogue Maker: UNA ARCE ([id number])[facility]ENTER[facility] [place] (SBHLAB)[address] Urea nitrogen [Mass/Vol] 24 mg/dL High 9-23 [facility] Comment on above: Performed By: #### L AB103, LAB17 ####Catalogue Maker: UNA ARCE ([id number])[facility]ENTER[facility] [place] (SBHLAB)[address] ABDOMEN PELVIS WO IV CONT RASTon 04-06-2025 CT ABDOMEN PELVIS WO IV CONTRAST Normal [facility] CT Abdomen and Pelvis WO con traston 04-06-2025 [facility] Radiology Study observation (narrative) Monishaangel Balderrama alth CT Abdomen and Pelvis WO con trastOrdered By: Sergey Gooden on 04-06-2025 [facility] [employer] Work Phone: CT CHEST WO IV CONTRASTon CT CHEST WO IV CONTRAST Normal [facility] CT Chest WO contraston 04-06 [facility] Radiology Study observation (narrative) Lynette Tacos alth CT Chest WO contrastOrdered By: Cari Lazaro on 04-06-2025 [facility] [employer] Phone: Consulton 04-06-2025 Consult Normal [facility] Consult Normal [facility] ECG 12-LEADon 04-06-2025 ECG 12-LEAD IMPRESSION: Sinus arrhythmia Nonspecific intraventricular conduction delay Probable anterolateral infarct, old No previous ECG for comparison Electronically Signed On 04-06-2025 01:54:21 EDT by Maik Laird Normal [facility] IRON AND TIBCon 04-06-2025 IRON BINDING CAPACITY 381 ug/dL Normal 250-450 [facility] Comment on above: Performed By: #### L [id number] ####Catalogue Maker: UNA ARCE ([id number])[facility]ITAL[facility] (SBHLAB)[address] IRON SATURATION 49.3 % Normal 20.0-50.0 [facility] Comment on above: Performed By: #### L AB829 ####Catalogue Maker: UNA ARCE ([id number])[facility]ITAL[facility] (SBHLAB)[address] IRON, TOTAL 188 ug/dL High 65-175 [facility] Comment on above: Performed By: #### L [id number] ####Catalogue Maker: UNA ARCE ([id number])[facility]ITAL[facility] (SBHLAB)[address] Laboratory - Hematology and Cell countson 04-06-2025 Basophils (Bld) [#/Vol] 0.2 10*3/uL 0.0 - 0.2 10*3/uL [facility] Basophils/100 WBC (Bld) 2 % 0 - 2 % [facility] Lymphocytes (Bld) [#/Vol] 1.4 10*3/uL 1.0 - 4.3 10*3/uL [facility] Lymphocytes/100 WBC (Bld) 14 % Low 15 - 45 % [facility] Monocytes (Bld) [#/Vol] 0.7 10*3/uL 0.0 - 0.9 10*3/uL [facility] Monocytes/100 WBC (Bld) 7 % 5 - 13 % [facility] RBC morphology finding Nom (Bld) abnormal [facility] MAGNESIUMon 04-06-2025 Magnesium [Mass/Vol] 1.8 mg/dL Normal 1.6-2.6 [facility] Comment on above: Result Comment: AILYNMeghna R COMMENTS:Higher values can be expected in females during menses. Performed By: #### L AB103, LAB17 ####Catalogue Maker: UNA ARCE ([id number])[facility]ENTERA [facility]BGUADALU[facility]PITALN (SBHLAB)[address] MANUAL DIFFERENTIAL (CELLAVI BANDAR)on 04-06-2025 ANISOCYTOSIS PRESENCE IN BLOOD BY LIGHT MICROSCOPY Moderate Abnormal (none) [facility] Comment on above: Performed By: #### L [id number], [id number] ####Catalogue Maker: UNA ARCE ([id number])[facility]ENTERA [place] (SBHLAB)[address] BAND NEUTROPHILS TOTAL PER COUNTED LEUKOCYTES BY MANUAL COUNT 1 Normal [facility] Comment on above: Performed By: #### L [id number], [id number] ####Catalogue Maker: UNA ARCE ([id number])[facility]ENTER[facility] [place] (SBHLAB)[address] BANDS (10*3/UL) IN BLOOD-CELLAVISION 0.1 10*3/uL High <=0.0 [facility] Comment on above: Performed By: #### L [id number], [id number] ####Catalogue Maker: UNA ARCE ([id number])[facility] (SBHLAB)[address] [place] [address] BASOPHILS (10*3/UL) IN BLOOD-CELLAVISION 0.2 10*3/uL Normal 0.0-0.2 [facility] Comment on above: Performed By: #### L [id number], [id number] ####Catalogue Maker: UNA ARCE ([id number])[facility] [place] (SBHLAB)[address] BASOPHILS TOTAL PER COUNTED LEUKOCYTES BY MANUAL COUNT 2 Normal [facility] Comment on above: Performed By: #### L [id number], [id number] ####Catalogue Maker: UNA ARCE ([id number])[facility] [place] (SBHLAB)[address] [place] [address] [place] BASOPHILS/100 LEUKOCYTES IN BLOOD-CELLAVISION 2 % Normal 0-2 [facility] Comment on above: Performed By: #### L [id number], [id number] ####Catalogue Maker: UNA MOHRCER ([id number])[facility] [place] (SBHLAB)[address] BLASTS TOTAL PER COUNTED LEUKOCYTES BY MANUAL COUNT [facility] Comment on above: Performed By: #### L [id number], [id number] ####Catalogue Maker: UNA MOHRCER ([id number])[facility] [place] (SBHLAB)[address] EOSINOPHILS TOTAL PER COUNTED LEUKOCYTES BY MANUAL COUNT [facility] Comment on above: Performed By: #### L [id number], [id number] ####Catalogue Maker: UNA MOHRCER ([id number])[facility] [place] (SBHLAB)[address] HYPOCHROMIA (PRESENCE) IN BLOOD BY LIGHT MICROSCOPY Moderate Abnormal (none) [facility] Comment on above: Performed By: #### L [id number], [id number] ####Catalogue Maker: UNA ARCE ([id number])[facility] [place] (SBHLAB)[address] [place] [address] [place] LYMPHOCYTES (10*3/UL) IN BLOOD-CELLAVISION 1.4 10*3/uL Normal 1.0-4.3 [facility] Comment on above: Performed By: #### L [id number], [id number] ####Catalogue Maker: UNA ARCE ([id number])[facility] [place] (SBHLAB)[address] [place] [address] [place] LYMPHOCYTES TOTAL PER COUNTED LEUKOCYTES BY MANUAL COUNT 14 [facility] Comment on above: Performed By: #### L [id number], [id number] ####Catalogue Maker: UNA ARCE ([id number])[facility] [place] (SBHLAB)[address] [place] [address] [place] LYMPHOCYTES/100 LEUKOCYTES IN BLOOD-CELLAVISION 14 % Low 15-45 [facility] Comment on above: Performed By: #### L [id number], [id number] ####Catalogue Maker: UNA ARCE ([id number])[facility] [place] (SBHLAB)[address] [place] [address] [place] METAMYELOCYTES TOTAL PER COUNTED LEUKOCYTES BY MANUAL COUNT Normal [facility] Comment on above: Performed By: #### L [id number], [id number] ####Catalogue Maker: UNA MOHRCER ([id number])[facility] [place] (SBHLAB)[address] [place] [address] [place] MICROCYTES (PRESENCE) IN BLOOD BY LIGHT MICROSCOPY Slight Abnormal (none) [facility] Comment on above: Performed By: #### L [id number], [id number] ####Catalogue Maker: UNA ARCE ([id number])[facility] [place] (SBHLAB)[address] [place] [address] [place] MONOCYTES (10*3/UL) IN BLOOD-CELLAVISION 0.7 10*3/uL Normal 0.0-0.9 [facility] Comment on above: Performed By: #### L [id number], [id number] ####Catalogue Maker: UNA ARCE ([id number])[facility] [place] (SBHLAB)[address] [place] [address] [place] MONOCYTES TOTAL PER COUNTED LEUKOCYTES BY MANUAL COUNT 7 Normal [facility] Comment on above: Performed By: #### L [id number], [id number] ####Catalogue Maker: UNA ARCE ([id number])[facility] [place] (SBHLAB)[address] [place] [address] [place] MONOCYTES/100 LEUKOCYTES IN BLOOD-LUCIANA 7 % Normal 5-13 [facility] Comment on above: Performed By: #### L [id number], [id number] ####Catalogue Maker: UNA ARCE ([id number])[facility] [place] (SBHLAB)[address] [place] [address] [place] MYELOCYTES COUNTED BY MANUAL COUNT Normal [facility] Comment on above: Performed By: #### L [id number], [id number] ####Catalogue Maker: UNA ARCE ([id number])[facility] [place] (SBHLAB)[address] [place] [address] [place] NEUTROPHILS BAND FORM/100 LEUKOCYTES IN BLOOD-CELLAVISI 1 % High <=0 [facility] Comment on above: Performed By: #### L [id number], [id number] ####Catalogue Maker: UNA ARCE ([id number])[facility] [place] (SBHLAB)[address] [place] [address] [place] NEUTROPHILS TOTAL PER COUNTED LEUKOCYTES BY MANUAL COUNT 79 Normal [facility] Comment on above: Performed By: #### L [id number], [id number] ####Catalogue Maker: UNA ARCE ([id number])[facility] [place] (SBHLAB)[address] [place] [address] [place] NUCLEATED ERYTHROCYTES/100 LEUKOCTES IN BLOOD-CELLAVISION 1 % Normal 0-2 [facility] Comment on above: Performed By: #### L [id number], [id number] ####Catalogue Maker: UNA ARCE ([id number])[facility] [place] (SBHLAB)[address] [place] [address] [place] POIKILOCYTOSIS (PRESENCE) IN BLOOD BY LIGHT MICROSCOPY Slight Abnormal (none) [facility] Comment on above: Performed By: #### L [id number], [id number] ####Catalogue Maker: UNA ARCE ([id number])[facility] [place] (SBHLAB)[address] [place] [address] [place] PROMYELOCYTES TOTAL PER COUNTED LEUKOCYTES BY MANUAL COUNT Normal [facility] Comment on above: Performed By: #### L [id number], [id number] ####Catalogue Maker: UNA ARCE ([id number])[facility] [place] (SBHLAB)[address] RBC MORPHOLOGY IN BLOOD abnormal Normal [facility] Comment on above: Performed By: #### L [id number], [id number] ####Catalogue Maker: UNA ARCE ([id number])[facility] [place] (SBHLAB)[address] SEGMENTED NEUTROPHILS (10*3/UL) IN BLOOD-CELLAVISION 8.0 10*3/uL High 1.8-7.5 [facility] Comment on above: Performed By: #### L [id number], [id number] ####Catalogue Maker: UNA ARCE ([id number])[facility] [place] (SBHLAB)[address] SEGMENTED NEUTROPHILS/100 LEUKOCYTES-CE 77 % Normal 38-82 [facility] Comment on above: Performed By: #### L [id number], [id number] ####Catalogue Maker: UNA ARCE ([id number])[facility] [place] (SBHLAB)[address] STOMATOCYTES IN BLOOD BY LIGHT MICROSCOPY Slight Abnormal (none) [facility] Comment on above: Performed By: #### L [id number], [id number] ####Catalogue Maker: UNA ARCE ([id number])[facility] [place] (SBHLAB)[address] UNCLASSIFIED CELLS TOTAL PER COUNTED LEUKOCYTES BY MANUAL COUNT [facility] Comment on above: Performed By: #### L [id number], [id number] ####Catalogue Maker: UNA ARCE ([id number])[facility] [place] (SBHLAB)[address] VARIANT LYMPHOCYTES TOTAL PER COUNTED LEUKOCYTES BY MANUAL COUNT [facility] Comment on above: Performed By: #### L [id number], [id number] ####Catalogue Maker: UNA ARCE ([id number])[facility] [place] (SBHLAB)[address] Nursing Noteon 04-06-2025 Nursing Note Normal [facility] Nursing Note Transfused two pint of blood. No any allergic reaction seen.vital signs are within normal limits. Normal [facility] Progress Noteon 04-06-2025 Progress Note Normal [facility] US Heart TransthoracicOrdere d By: Thomas Hinton on 04-06-2025 Ao Root Index 1.47 cm/m2 [facility] Work Phone: Aortic Root 3 cm [facility] Work Phone: Aortic valve Mean systole pressure gradient by US.doppler derived full Bernoulli 7 [facility] Work Phone: Aortic valve Orifice area by US 3.1 cm2 [facility] Work Phone: Aortic valve Peak systolic flow by US.doppler 1.3 m/s [facility] Work Phone: Ascending Aorta 3.1 cm [facility] Work Phone: Ascending Aorta Index 1.52 cm/m2 [facility] Work Phone: AV Area by Peak Velocity 1.5 cm2 [facility] Work Phone: AV Area by VTI 1.3 cm2 [facility] Work Phone: AV Peak Gradient 15 mmHg [facility] Work Phone: AV Peak Velocity 1.9 m/s [facility] Work Phone: AV Velocity Ratio 0.47 [facility] Work Phone: AV VTI 37.4 cm [facility] Work Phone: JULIET/BSA Peak Velocity 0.7 cm2/m2 [facility] Work Phone: JULIET/BSA VTI 0.6 cm2/m2 [facility] Work Phone: E/E' Lateral 23 [facility] Work Phone: Est. RA Pressure 15 mmHg [facility] Work Phone: Fractional Shortening 2D 8 % 28 - 44 % [facility] Work Phone: Interpretation and review of laboratory results Abnormal [facility] Work Phone: IVSd 1.1 cm Abnormal 0.6 - 1.0 cm [facility] Work Phone: LA Diameter 4 cm [facility] Work Phone: LA Size Index 1.96 cm/m2 [facility] Work Phone: LA Volume 4C 56 mL 18 - 58 mL [facility] Work Phone: LA Volume Index 4C 27 mL/m2 16 - 34 mL/m2 [facility] Work Phone: LA/AO Root Ratio 1.33 [facility] Work Phone: Left ventricular Ejection fraction by US.2D+Calculated by biplane method of disks 22 % Abnormal 55 - 100 % [facility] Work Phone: LV E' Lateral Velocity 5 cm/s [facility] Work Phone: LV EDV A2C 331 mL [facility] Work Phone: LV EDV A4C 293 mL [facility] Work Phone: LV EDV BP 315 mL Abnormal 67 - 155 mL [facility] Work Phone: LV EDV Index A2C 162 mL/m2 [facility] Work Phone: LV EDV Index A4C 144 mL/m2 [facility] Work Phone: LV EDV Index BP 154 mL/m2 [facility] Work Phone: LV Ejection Fraction A2C 26 % [facility] Work Phone: LV Ejection Fraction A4C 22 % [facility] Work Phone: LV ESV A2C 245 mL [facility] Work Phone: LV ESV A4C 229 mL [facility] Work Phone: LV ESV BP 247 mL Abnormal 22 - 58 mL [facility] Work Phone: LV ESV Index A2C 120 mL/m2 [facility] Work Phone: LV ESV Index A4C 112 mL/m2 [facility] Work Phone: LV ESV Index BP 121 mL/m2 [facility] Work Phone: LV Mass 2D 246.9 g Abnormal 88 - 224 g [facility] Work Phone: LV Mass 2D Index 121 g/m2 Abnormal 49 - 115 g/m2 [facility] Work Phone: LV RWT Ratio 0.3 [facility] Work Phone: LVIDd 6 cm Abnormal 4.2 - 5.9 cm [facility] Work Phone: LVIDd Index 2.94 cm/m2 [facility] Work Phone: LVIDs 5.5 cm [facility] Work Phone: LVIDs Index 2.7 cm/m2 [facility] Work Phone: LVOT Cardiac Output 3.2 liter/minute [facility] Work Phone: LVOT Diameter 2 cm [facility] Work Phone: LVOT Mean Gradient 2 mmHg [facility] Work Phone: LVOT Peak Gradient 3 mmHg [facility] Work Phone: LVOT Peak Velocity 0.9 m/s [facility] Work Phone: LVOT Stroke Volume Index 23.2 mL/m2 [facility] Work Phone: LVOT SV 47.4 ml [facility] Work Phone: LVOT VTI 15.1 cm [facility] Work Phone: LVOT:AV VTI Index 0.4 [facility] Work Phone: LVPWd 0.9 cm 0.6 - 1.0 cm [facility] Work Phone: MR VTI 139.2 cm [facility] Work Phone: MV A Velocity 1.12 m/s [facility] Work Phone: MV E Velocity 1.15 m/s [facility] Work Phone: MV E Wave Deceleration Time 179.2 ms [facility] Work Phone: MV E/A 1.03 [facility] Work Phone: MV Nyquist Velocity 36 cm/s [facility] Work Phone: MV Regurg Velocity PISA 4.6 m/s [facility] Work Phone: RA Area 4C 34.5 mL [facility] Work Phone: RV Free Wall Peak S' 13 cm/s [facility] Work Phone: RVSP 66 mmHg [facility] Work Phone: TAPSE 2.4 cm 1.7 cm [facility] Work Phone: TR Max Velocity 3.58 m/s [facility] Work Phone: TR Peak Gradient 51 mmHg [facility] Work Phone: [facility] Work Phone: US Heart Transthoracicon CV CPACS BASIC METABOLIC PANELon - Anion gap [Moles/Vol] 8 mmol/L Normal 3-13 [facility] Comment on above: Performed By: #### L AB89, [id number], LAB67, LAB69, LAB15, [id number], [id number], LAB20 ####Catalogue Maker: UNA ARCE ([id number])[facility] (SBHLAB)[address] [place] [address] Calcium [Mass/Vol] 8.4 mg/dL Low 8.8-10.0 [facility] Comment on above: Performed By: #### L AB89, [id number], LAB67, LAB69, LAB15, [id number], [id number], LAB20 ####Catalogue Maker: UNA ARCE ([id number])[facility] (SBHLAB)[address] Chloride [Moles/Vol] 105 mmol/L Normal 98-107 [facility] Comment on above: Performed By: #### L AB89, FRR858, LAB67, LAB69, LAB15, PFI109, [id number], LAB20 ####Catalogue Maker: UNA ARCE ([id number])[facility] (SBHLAB)[address] CO2 [Moles/Vol] 27 mmol/L Normal 23-31 [facility] Comment on above: Performed By: #### L AB89, AVE080, LAB67, LAB69, LAB15, [id number], [id number], LAB20 ####Catalogue Maker: UNA ARCE ([id number])[facility] (SBHLAB)[address] [place] [address] Creatinine [Mass/Vol] 1.46 mg/dL High 0.72-1.25 [facility] Comment on above: Performed By: #### L AB89, [id number], LAB67, LAB69, LAB15, PYT526, [id number], LAB20 ####Catalogue Maker: UNA ARCE ([id number])[facility] (SBHLAB)[address] GLOMERULAR FILTRATION RATE ML/MIN/1.73 SQ M.PREDICTED 45.7 mL/min/1.73m*2 Low >60.0 [facility] Comment on above: Result Comment: Calc ulation based on the Chronic Kidney Disease Epidemiology Collaboration (CKD-EPI) equation refit without adjustment for race Performed By: #### L AB89, UUL298, LAB67, LAB69, LAB15, BQP958, [id number], LAB20 ####Catalogue Maker: UNA ARCE ([id number])[facility] (SBHLAB)[address] Glucose [Mass/Vol] 108 mg/dL Normal 82-115 [facility] Comment on above: Performed By: #### L AB89, MPR608, LAB67, LAB69, LAB15, QZS591, [id number], LAB20 ####Catalogue Maker: UNA ARCE ([id number])[facility] (SBHLAB)[address] Potassium [Moles/Vol] 4.5 mmol/L Normal 3.5-5.1 [facility] Comment on above: Result Comment: [facility] potassium values may be up to 0.5 mmol/L lower than serum values. Performed By: #### L AB89, [id number], LAB67, LAB69, LAB15, FBC509, [id number], LAB20 ####Catalogue Maker: UNA ARCE ([id number])[facility] (SBHLAB)[address] Sodium [Moles/Vol] 140 mmol/L Normal 136-145 [facility] Comment on above: Performed By: #### L AB89, ATX805, LAB67, LAB69, LAB15, JOI621, [id number], LAB20 ####Catalogue Maker: UNA ARCE ([id number])[facility] (HLAB)[address] Urea nitrogen [Mass/Vol] 24 mg/dL High 9-23 [facility] Comment on above: Performed By: #### L AB89, NWB257, LAB67, LAB69, LAB15, XTS621, [id number], LAB20 ####Catalogue Maker: UNA ARCE ([id number])[facility] BLOOD TYPE AND SCREEN GELon 04-05-2025 ABO GROUPING A Normal [facility] Comment on above: Performed By: #### L AB276 ####Catalogue Maker: UNA ARCE ([id number])[facility] ([facility])[address] RH TYPE IN BLOOD Negative Normal [facility] Comment on above: Performed By: #### L AB276 ####Catalogue Maker: UNA ARCE ([id number])[facility] B[facility] ([facility])[address] CBC WITH AUTO DIFFERENTIALon 04-05-2025 Erythrocyte distribution width (RBC) [Ratio] 19.9 % High 11.5-15.0 [facility] Comment on above: Performed By: #### L [id number], [id number], [id number] ####Catalogue Maker: UNA MOHRCER ([id number])[facility] ([facility])[address] Hematocrit (Bld) [Volume fraction] 20.7 % Low 40.0-52.0 [facility] Comment on above: Performed By: #### L JC7633, [id number], YMD265 ####Catalogue Maker: UNA ARCE ([id number])[facility] ([facility])[address] Hemoglobin (Bld) [Mass/Vol] 5.5 g/dL Critically low 13.0-18.0 [facility] Comment on above: Performed By: #### L UI8538, [id number], QGU256 ####Catalogue Maker: UNA ARCE ([id number])[facility] ([facility])[address] MCH (RBC) [Entitic mass] 19.4 pg Low 26.0-34.0 [facility] Comment on above: Performed By: #### L MG8432, [id number], ZUH041 ####Catalogue Maker: UNA ARCE ([id number])[facility] ([facility])[address] MCHC 26.6 % Low 30.5-36.0 [facility] Comment on above: Performed By: #### L EH4293, [id number], CXQ013 ####Catalogue Maker: UNA ARCE ([id number])[facility]ENTERAngel [facility] (SBHLAB)[address] MCV (RBC) [Entitic vol] 73.1 fL Low 77.0-99.0 [facility] Comment on above: Performed By: #### Gilbert [id number], [id number], [id number] ####Catalogue Maker: UNA ARCE ([id number])[facility] [place] (SBHLAB)[address] Platelet mean volume (Bld) [Entitic vol] 9.4 fL Normal 9.0-12.7 [facility] Comment on above: Performed By: #### Gilbert CJ8948, [id number], [id number] ####Catalogue Maker: UNA ARCE ([id number])[facility] CENTERAngel [facility] (SBHLAB)[address] [place] [address] Platelets (Bld) [#/Vol] 358 10*3/uL Normal 140-440 [facility] Comment on above: Performed By: #### L CN6679, [id number], [id number] ####Catalogue Maker: UNA ARCE ([id number])[facility] ([facility])[address] RBC (Bld) [#/Vol] 2.83 10*6/uL Low 4.40-5.90 [facility] Comment on above: Performed By: #### L NY8967, [id number], JEA929 ####Catalogue Maker: UNA ARCE ([id number])[facility] (SB[facility])[address] WBC (Bld) [#/Vol] 10.0 10*3/uL Normal 3.6-10.7 [facility] Comment on above: Performed By: #### L JV1268, [id number], [id number] ####Catalogue Maker: UNA ARCE ([id number])[facility] (SBHLAB)[address] ED Provider Noteon ED Provider Note Normal [facility] FERRITINon 04-05-2025 Ferritin [Mass/Vol] 19 ng/mL Low 22-275 [facility] Comment on above: Result Comment: YARELI [place] COMMENTS:Ferritin levels below 10 ng/mL have been reported as indicative of iron deficiency anemia. Performed By: #### L [id number], LAB18, LAB68 ####Catalogue Maker: UNA ARCE ([id number])[facility] (SBHLAB)[address] FOLATEon 04-05-2025 FOLATE RESULT 13.7 ng/mL Normal 7.0-31.4 [facility] Comment on above: Performed By: #### L AB89, JGL688, LAB67, LAB69, LAB15, NHX870, [id number], LAB20 ####Catalogue Maker: UNA ARCE ([id number])[facility] (SBHLAB)[address] HAPTOGLOBINon 04-05-2025 HAPTOGLOBIN 226 mg/dL Normal 50-270 [facility] Comment on above: Performed By: #### L AB89, NXM957, LAB67, LAB69, LAB15, XNQ127, [id number], LAB20 ####Catalogue Maker: UNA ARCE ([id number])[facility] (SBHLAB)[address] HEPATIC FUNCTION PANELon Albumin [Mass/Vol] 2.7 g/dL Low 3.4-4.8 [facility] Comment on above: Performed By: #### L AB89, [id number], LAB67, LAB69, LAB15, [id number], [id number], LAB20 ####Catalogue Maker: UNA ARCE ([id number])[facility] ([facility]HLAB)[address] ALP [Catalytic activity/Vol] 65 U/L Normal 40-150 [facility] Comment on above: Performed By: #### L AB89, DWQ435, LAB67, LAB69, LAB15, LXP073, [id number], LAB20 ####Catalogue Maker: UNA ARCE ([id number])[facility] ([facility])[address] ALT [Catalytic activity/Vol] 7 U/L Normal <40 [facility] Comment on above: Performed By: #### L AB89, BXC143, LAB67, LAB69, LAB15, [id number], [id number], LAB20 ####Catalogue Maker: UNA ARCE ([id number])[facility] (SBHLAB)[address] [place] [address] AST [Catalytic activity/Vol] 22 U/L Normal <34 [facility] Comment on above: Performed By: #### L AB89, QZS637, LAB67, LAB69, LAB15, TVT316, [id number], LAB20 ####Catalogue Maker: UNA ARCE ([id number])[facility]ENTER[facility] ([facility] [place] [address] Bilirubin [Mass/Vol] 0.5 mg/dL Normal <1.2 [facility] Comment on above: Performed By: #### L AB89, CYH528, LAB67, LAB69, LAB15, JTC955, [id number], LAB20 ####Catalogue Maker: UNA ARCE ([id number])[facility] ([facility])[address] [place] [address] [place] Bilirubin.indirect [Mass/Vol] 0.2 mg/dL Normal <0.5 [facility] Comment on above: Performed By: #### L AB89, QNS651, LAB67, LAB69, LAB15, CDO915, [id number], LAB20 ####Catalogue Maker: UNA ARCE ([id number])[facility] ([facility]AB)[address] Protein [Mass/Vol] 6.4 g/dL Normal 6.4-8.3 [facility] Comment on above: Result Comment: Seru m protein values are higher than plasma values. Samples from recumbent persons are lower by up to 0.5 g/dL as compared to ambulatory persons. After 60 years values are lower by up to 0.2 g/dL. Performed By: #### L AB89, CPR737, LAB67, LAB69, LAB15, IFK315, [id number], LAB20 ####Catalogue Maker: UNA ARCE ([id number])[facility] ([facility])[address] [place] [address] HIGH SENSITIVITY TROPONIN, S ERIAL BASELINEon 04-05-2025 TROPONIN HS SERIAL BASELINE 29 ng/L Normal <=35 [facility] Comment on above: Result Comment: In i ndividuals presenting with symptoms > 2h, a baseline troponin <= 5 ng/L suggests acutecardiac injury is unlikely and further serial testing is generally not indicated. Performed By: #### L [id number] ####Catalogue Maker: UNA ARCE ([id number])[facility] ([facility])[address] [place] [address] TROPONIN HS SERIAL BASELINE 30 ng/L Normal <=35 [facility] Comment on above: Result Comment: In i ndividuals presenting with symptoms > 2h, a baseline troponin <= 5 ng/L suggests acutecardiac injury is unlikely and further serial testing is generally not indicated. Performed By: #### L AB89, [id number], LAB67, LAB69, LAB15, SYM879, [id number], LAB20 ####Catalogue Maker: UNA ARCE ([id number])[facility] ([facility])[address] [place] [address] HIGH SENSITIVITY TROPONIN, S ERIAL, SECOND TESTon 04-05-2025 2H TROPONIN HS (SERIAL 2ND TROPONIN) 28 ng/L Normal <=35 [facility] Comment on above: Result Comment: 2h t roponin (2nd troponin) samples collected between 1h 40 min and 2h and 20 min of the baseline collection time can be utilized to interpret delta troponins as per [facility] algorithms. Samples collected outside this timeframe need to be interpreted clinically.Rising or falling troponin delta below 2 ng/L as compared to baseline value suggests thatacute cardiac injury is unlikely. Performed By: #### Gilbert [id number], LAB18, LAB68 ####Catalogue Maker: UNA ARCE ([id number])[facility]ENTER[facility] [place] (SBHLAB)[address] LIPID PANELon 04-05-2025 Cholesterol [Mass/Vol] 89 mg/dL Normal <200 [facility] Comment on above: Performed By: #### L [id number], LAB18, LAB68 ####Catalogue Maker: UNA ARCE ([id number])[facility]ENTERAngel [facility] (SBHLAB)[address] Cholesterol in HDL [Mass/Vol] 29 mg/dL Low >=60 [facility] Comment on above: Performed By: #### Gilbert [id number], LAB18, LAB68 ####Catalogue Maker: UNA ARCE ([id number])[facility] ([facility])[address] Cholesterol.total/Choles terol in HDL [Mass ratio] 3 {ratio} Normal [facility] Comment on above: Result Comment: Ref Range:< 3 Low Risk for CHD3-6 Mod Risk for CHD> 6 High Risk for CHD Performed By: #### Gilbert [id number], LAB18, LAB68 ####Catalogue Maker: UNA ARCE ([id number])[facility]ENTERAngel [place] (SBHLAB)[address] LOW DENSITY LIPOPROTEIN 48 mg/dL Normal 0-<100 [facility] Comment on above: Performed By: #### L [id number], LAB18, LAB68 ####Catalogue Maker: UNA ARCE ([id number])[facility]ENTERAngel [facility] (SBHLAB)[address] NON-HDL CHOLESTEROL, CALCULATED 60 Normal <130 [facility] Comment on above: Performed By: #### L [id number], LAB18, LAB68 ####Catalogue Maker: UNA ARCE ([id number])[facility]ENTERA [place] (SBHLAB)[address] Triglyceride [Mass/Vol] 60 mg/dL Normal <150 [facility] Comment on above: Performed By: #### L [id number], LAB18, LAB68 ####Catalogue Maker: UNA ARCE ([id number])[facility] [place] (SBHLAB)[address] VERY LOW DENSITY LIPOPROTEIN, CALCULATED 12 mg/dL Normal <=30 [facility] Comment on above: Performed By: #### L [id number], LAB18, LAB68 ####Catalogue Maker: UNA ARCE ([id number])[facility] [place] (SBHLAB)[address] MANUAL DIFFERENTIAL (CELLAVI BANDAR)on 04-05-2025 ANISOCYTOSIS PRESENCE IN BLOOD BY LIGHT MICROSCOPY Moderate Abnormal (none) [facility] Comment on above: Performed By: #### Gilbert [id number], [id number], HDP595 ####Catalogue Maker: UNA ARCE ([id number])[facility] [place] (SBHLAB)[address] BAND NEUTROPHILS TOTAL PER COUNTED LEUKOCYTES BY MANUAL COUNT [facility] Comment on above: Performed By: #### L [id number], [id number], [id number] ####Catalogue Maker: UNA ARCE ([id number])[facility] [place] (SBHLAB)[address] BASOPHILS TOTAL PER COUNTED LEUKOCYTES BY MANUAL COUNT [facility] Comment on above: Performed By: #### L [id number], [id number], [id number] ####Catalogue Maker: UNA ARCE ([id number])[facility] [place] (SBHLAB)[address] BLASTS TOTAL PER COUNTED LEUKOCYTES BY MANUAL COUNT [facility] Comment on above: Performed By: #### L [id number], [id number], [id number] ####Catalogue Maker: UNA BERMUDEZPEDRO ([id number])[facility] [place] (SBHLAB)[address] EOSINOPHILS TOTAL PER COUNTED LEUKOCYTES BY MANUAL COUNT Normal [facility] Comment on above: Performed By: #### L DH8746, [id number], KFP830 ####Catalogue Maker: UNA BERMUDEZPEDRO ([id number])[facility] [place] (SBHLAB)[address] HYPOCHROMIA (PRESENCE) IN BLOOD BY LIGHT MICROSCOPY Moderate Abnormal (none) [facility] Comment on above: Performed By: #### L [id number], [id number], [id number] ####Catalogue Maker: UNA BERMUDEZPEDRO ([id number])[facility] [place] (SBHLAB)[address] [place] [address] [place] LYMPHOCYTES (10*3/UL) IN BLOOD-CELLAVISION 1.4 10*3/uL Normal 1.0-4.3 [facility] Comment on above: Performed By: #### L PA0421, [id number], ZVE544 ####Catalogue Maker: UNA BERMUDEZPEDRO ([id number])[facility] [place] (SBHLAB)[address] [place] [address] [place] LYMPHOCYTES TOTAL PER COUNTED LEUKOCYTES BY MANUAL COUNT 15 Normal [facility] Comment on above: Performed By: #### L QZ8529, [id number], [id number] ####Catalogue Maker: UNA BERMUDEZPEDRO ([id number])[facility] [place] (SBHLAB)[address] [place] [address] [place] LYMPHOCYTES/100 LEUKOCYTES IN BLOOD-CELLAVISION 14 % Low 15-45 [facility] Comment on above: Performed By: #### L CX8890, [id number], [id number] ####Catalogue Maker: UNA ARCE ([id number])[facility] [place] (SBHLAB)[address] [place] [address] [place] METAMYELOCYTES TOTAL PER COUNTED LEUKOCYTES BY MANUAL COUNT Normal [facility] Comment on above: Performed By: #### L [id number], [id number], QKV825 ####Catalogue Maker: UNA ARCE ([id number])[facility] [place] (SBHLAB)[address] [place] [address] [place] MICROCYTES (PRESENCE) IN BLOOD BY LIGHT MICROSCOPY Slight Abnormal (none) [facility] Comment on above: Performed By: #### L OX0816, [id number], [id number] ####Catalogue Maker: UNA ARCE ([id number])[facility] [place] (SBHLAB)[address] [place] [address] [place] MONOCYTES (10*3/UL) IN BLOOD-CELLAVISION 1.3 10*3/uL High 0.0-0.9 [facility] Comment on above: Performed By: #### L XB3003, [id number], TYX516 ####Catalogue Maker: UNA ARCE ([id number])[facility] [place] (SBHLAB)[address] [place] [address] [place] MONOCYTES TOTAL PER COUNTED LEUKOCYTES BY MANUAL COUNT 14 Normal [facility] Comment on above: Performed By: #### L QV3346, [id number], [id number] ####Catalogue Maker: UNA ARCE ([id number])[facility] [place] (SBHLAB)[address] [place] [address] [place] MONOCYTES/100 LEUKOCYTES IN BLOOD-LUCIANA 13 % Normal 5-13 [facility] Comment on above: Performed By: #### L TO5691, [id number], YWX859 ####Catalogue Maker: UNA ARCE ([id number])[facility] [place] (SBHLAB)[address] [place] [address] [place] MYELOCYTES COUNTED BY MANUAL COUNT Normal [facility] Comment on above: Performed By: #### L WS2559, [id number], [id number] ####Catalogue Maker: UNA ARCE ([id number])[facility] [place] (SBHLAB)[address] [place] [address] [place] NEUTROPHILS TOTAL PER COUNTED LEUKOCYTES BY MANUAL COUNT 76 Normal [facility] Comment on above: Performed By: #### L FV1867, [id number], WIY915 ####Catalogue Maker: UNA ARCE ([id number])[facility]A [facility] (SBHLAB)[address] [place] [address] [place] NUCLEATED ERYTHROCYTES/100 LEUKOCTES IN BLOOD-CELLAVISION 1 % Normal 0-2 [facility] Comment on above: Performed By: #### L [id number], [id number], HLW471 ####Catalogue Maker: UNA ARCE ([id number])[facility] (SBHLAB)[address] [place] [address] [place] OVALOCYTES PRESENCE IN BLOOD BY LIGHT MICROSCOPY Slight Abnormal (none) [facility] Comment on above: Performed By: #### L [id number], [id number], [id number] ####Catalogue Maker: UNA ARCE ([id number])[facility]ENTERA [facility] (SBHLAB)[address] [place] [address] [place] POIKILOCYTOSIS (PRESENCE) IN BLOOD BY LIGHT MICROSCOPY Moderate Abnormal (none) [facility] Comment on above: Performed By: #### L [id number], [id number], ZEC630 ####Catalogue Maker: UNA ARCE ([id number])[facility]A [facility] (SBHLAB)[address] [place] [address] [place] PROMYELOCYTES TOTAL PER COUNTED LEUKOCYTES BY MANUAL COUNT Normal [facility] Comment on above: Performed By: #### L [id number], [id number], [id number] ####Catalogue Maker: UNA ARCE ([id number])[facility] [place] (SBHLAB)[address] [place] [address] [place] RBC MORPHOLOGY IN BLOOD abnormal Normal [facility] Comment on above: Performed By: #### L [id number], [id number], [id number] ####Catalogue Maker: UNA ARCE ([id number])[facility] [place] (SBHLAB)[address] [place] [address] [place] SEGMENTED NEUTROPHILS (10*3/UL) IN BLOOD-CELLAVISION 7.2 10*3/uL Normal 1.8-7.5 [facility] Comment on above: Performed By: #### L [id number], [id number], WRX201 ####Catalogue Maker: UNA YAZMIN ([id number])[facility] [place] (SBHLAB)[address] [place] [address] [place] SEGMENTED NEUTROPHILS/100 LEUKOCYTES-CE 72 % Normal 38-82 [facility] Comment on above: Performed By: #### L YM7567, [id number], [id number] ####Catalogue Maker: UNA YAZMIN ([id number])[facility] [place] (SBHLAB)[address] [place] [address] [place] STOMATOCYTES IN BLOOD BY LIGHT MICROSCOPY Moderate Abnormal (none) [facility] Comment on above: Performed By: #### L OX6546, [id number], [id number] ####Catalogue Maker: UNA BERMUDEZPEDRO ([id number])[facility]A [facility] (SBHLAB)[address] [place] [address] [place] TARGET CELLS IN BLOOD BY LIGHT MICROSCOPY Slight Abnormal (none) [facility] Comment on above: Performed By: #### L [id number], [id number], IAF150 ####Catalogue Maker: UNA STAUFFERMELANIE ([id number])[facility] [place] (SBHLAB)[address] [place] [address] [place] UNCLASSIFIED CELLS TOTAL PER COUNTED LEUKOCYTES BY MANUAL COUNT Normal [facility] Comment on above: Performed By: #### L [id number], [id number], CTA961 ####Catalogue Maker: UNA STAUFFERMELANIE ([id number])[facility]A [facility] (SBHLAB)[address] [place] [address] [place] VARIANT LYMPHOCYTES TOTAL PER COUNTED LEUKOCYTES BY MANUAL COUNT Normal [facility] Comment on above: Performed By: #### L [id number], [id number], JQL248 ####Catalogue Maker: UNA ARCE ([id number])[facility]ENTERAngel [facility] (SBHLAB)[address] NT PRO BNPon 04-05-2025 Natriuretic peptide B (Bld) [Mass/Vol] 8438 pg/mL High <450 [facility] Comment on above: Performed By: #### L AB89, WLB368, LAB67, LAB69, LAB15, KRG748, [id number], LAB20 ####Catalogue Maker: UNA ARCE ([id number])[facility] (SBHLAB)[address] RETICULOCYTESon 04-05-2025 Reticulocytes/100 RBC (Bld) 2.31 % Normal [facility] Comment on above: Result Comment: Newb orn < 5%Adults 0.4 - 2.0% Performed By: #### L [id number], [id number], RNI113 ####Catalogue Maker: UNA ARCE ([id number])[facility]ENTERAngel [facility] (SBHLAB)[address] THYROID STIMULATING HORMONEo n 04-05-2025 THYROID STIMULATING HORMONE 10.19 uIU/mL High 0.35-4.94 [facility] Comment on above: Performed By: #### L AB89, HTP927, LAB67, LAB69, LAB15, FBT559, [id number], LAB20 ####Catalogue Maker: UNA ARCE ([id number])[facility] (SBHLAB)[address] VITAMIN B12on 04-05-2025 Cobalamin (Vitamin B12) [Mass/Vol] 817 pg/mL High 213-816 [facility] Comment on above: Performed By: #### L AB89, AMV382, LAB67, LAB69, LAB15, XLI945, [id number], LAB20 ####Catalogue Maker: UNA ARCE ([id number])[facility] (SBHLAB)[address] Vital Signs Date Time Vital Sign Value Performing Clinician Loulou nieto 06-22-2025 02:11-0400 Diastolic blood pressure 57 mm[Hg] Sagar Gombash DO Work Phone: [employer] 06-22-2025 02:11-0400 Heart rate 54 /min Sagar Gombash DO Work Phone: [facility] 06-22-2025 02:11-0400 Respiratory rate 18 /min Sagar Gombash DO Work Phone: [facility] 06-22-2025 02:11-0400 SaO2% (BldA) [Mass fraction] 97 % [facility]agar [facility]ash [facility] 06-22-2025 02:11-0400 Systolic blood pressure 105 mm[Hg] Sagar Gombash DO Work Phone: [facility] 06-22-2025 00:31-0400 Body temperature 98.2 [degF] Sagar Gombash DO Work Phone: [facility] 06-17-2025 10:47-0400 SaO2% (BldA) [Mass fraction] 95 % Eber Hess MD Work Phone: [facility] 06-17-2025 10:27-0400 Body height 174 cm Eber Hess MD Work Phone: [facility] 06-17-2025 10:27-0400 Body mass index (BMI) [Ratio] 27.3 kg/m2 Eber Hess MD Work Phone: [facility] 06-17-2025 10:27-0400 Body weight 82.64 kg Eber Hess MD Work Phone: [facility] 06-17-2025 10:27-0400 Diastolic blood pressure 58 mm[Hg] Eber Hess MD Work Phone: [facility] 06-17-2025 10:27-0400 Heart rate 70 /min Eber Hess MD Work Phone: [employer] 06-17-2025 10:27-0400 Systolic blood pressure 110 mm[Hg] Eber Hess MD Work Phone: [facility] 05-03-2025 10:13-0400 Body height 174 cm Alejandro Queen APR N - ANCILLARY SPECIALIST Work Phone: [employer] 05-03-2025 10:13-0400 Body mass index (BMI) [Ratio] 28.09 kg/m2 Alejandro Fullerynick SMALL BOAT ENGINEER - ANCILLARY SPECIALIST Work Phone: [employer] 05-03-2025 10:13-0400 Body weight 85.05 kg Alejandro Queen APR N - ANCILLARY SPECIALIST Work Phone: [employer] 05-03-2025 10:13-0400 Diastolic blood pressure 62 mm[Hg] Alejandro Jonnyynick SMALL BOAT ENGINEER - ANCILLARY SPECIALIST Work Phone: [facility] [employer] 05-03-2025 10:13-0400 Heart rate 66 /min Alejandro Swiftick APR N - ANCILLARY SPECIALIST Work Phone: [facility] 05-03-2025 10:13-0400 Systolic blood pressure 106 mm[Hg] Alejandro Fullerynick SMALL BOAT ENGINEER - ANCILLARY SPECIALIST Work Phone: [employer] 04-17-2025 08:40-0400 Diastolic blood pressure 50 mm[Hg] Rowena Skiffey DO Work Phone: [facility] 04-17-2025 08:40-0400 Heart rate 62 /min Rowena Skiffey DO Work Phone: [facility] 04-17-2025 08:40-0400 Respiratory rate 17 /min Rowena Skiffey DO Work Phone: [facility] 04-17-2025 08:40-0400 SaO2% (BldA) [Mass fraction] 96 % Rowena Skiffey DO Work Phone: [facility] [employer] 04-17-2025 08:40-0400 Systolic blood pressure 104 mm[Hg] Rowena Skiffey DO Work Phone: [employer] 04-17-2025 05:00-0400 Body mass index (BMI) [Ratio] 31.14 kg/m2 Rowena Aguilar [employer] Work Phone: [facility] 04-17-2025 05:00-0400 Body weight 92.9 kg Rowena Aguilar DO Work Phone: [facility] 04-17-2025 01:47-0400 Body temperature 97.2 [degF] Rowena Aguilar DO Work Phone: [facility] 04-16-2025 16:41-0400 Body height 172.7 cm Rowena Aguilar [employer] Work Phone: [facility] 04-13-2025 04:37-0400 SaO2% (BldA) [Mass fraction] 95.1 % Rowena Aguilar [employer] Work Phone: [facility] 04-08-2025 21:01-0400 SaO2% (BldA) [Mass fraction] 97 % Rowena Aguilar DO [facility] 04-08-2025 17:02-0400 SaO2% (BldA) [Mass fraction] 96.1 % Rowena Aguilar [employer] [facility] En[facility]ters Encounter Date Encounter Type Care Provider Facility Start: 06-28-2025 [facility] Facility :[facility] Start: 06-24-2025 End: 06-24-2025 Documentation procedure Yamilka Holloway SMALL BOAT ENGINEER - ANCILLARY SPECIALIST Work Phone: [facility] [place] Start: 06-24-2025 End: 06-25-2025 Telephone encounter Eber Hess MD Work Phone: [facility] - [place] Comment on above: Release of Informati on (BMP, vitals, and medication notes ) Start: 06-24-2025 ambulatory Spencer Yelena Murray ty:[facility] Start: 06-21-2025 End: 06-22-2025 Emergency department patient visit Sagar Gilliam DO Work Phone: [facility] ED Comment on above: Anemia due to chroni c kidney disease, unspecified CKD stage (Primary Dx) Start: 06-21-2025 ambulatory Spencer Yelena Murray ty:[facility] Start: 06-17-2025 End: 06-17-2025 ambulatory [facility] Start: 06-17-2025 End: 06-17-2025 ambulatory [facility] Start: 06-17-2025 End: 06-17-2025 Office outpatient visit 40 minutes Eber Hess MD Work Phone: [facility] [place] Comment on above: Chronic systolic hea rt failure (HCC) (Primary Dx) Start: 05-06-2025 End: 05-12-2025 Home visit new pt unstabl/signif new prob 75 min Yamilka Holloway SMALL BOAT ENGINEER - ANCILLARY SPECIALIST Work Phone: [facility] [place] Comment on above: Palliative care enco unter (Primary Dx); Pleural effusion; Acute on chronic heart failure, unspecified heart failure type (HCC); Debility Start: 05-03-2025 End: 05-03-2025 ambulatory ALEJANDRO QUEEN [facility] Start: 05-03-2025 End: 05-03-2025 Office outpatient visit 25 minutes Alejandro Queen SMALL BOAT ENGINEER - ANCILLARY SPECIALIST Work Phone: [facility] Comment on above: Chronic systolic hea rt failure (HCC) (Primary Dx); 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; Pleural effusion; Acute kidney injury superimposed on chronic kidney disease (HCC) (HCC); 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 chronic kidney disease (HCC); PAC (premature atrial contraction); Abnormal CAT scan Start: 04-19-2025 End: 04-19-2025 Orders Only Katie Engle RN [facility] [place] Comment on above: Acute congestive hea rt failure, unspecified heart failure type (HCC) (Primary Dx) Start: 04-05-2025 End: 04-17-2025 Evaluation and management of inpatient Rowena Aguilar Work Phone: [facility] Cardiac Progressive Care Unit PCU 2E Start: 11-07-2020 End: 11-07-2020 Discharged Recurring [facility]-Immunizations Procedures Date Procedure Procedure Detail Performing Clinician Start: 06-21-2025 Compatibility each u nit electronic Alannah D'Lakhwinder PA-C Work Phone: Start: 06-21-2025 End: 06-22-2025 TRANSFUSE RED BLOOD CELLS Alannah D'Ami co PA-C Work Phone: Start: 06-21-2025 Ecg routine ecg w/le ast 12 lds trcg only w/o i&r Sagar A Gombash DO Work Phone: Start: 06-21-2025 Antibody screen EBER HESS Comment on above: Performed By: #### L [id number] ####Catalogue Maker: UNA NAVARRO ([id number])[facility] ([facility])[address] [place] [address] Start: 06-21-2025 Basic metabolic pane l calcium total Alannah D'Lakhwinder PA-C Work Phone: Start: 06-21-2025 Blood typing serologic abo Alannah D'Lakhwinder PA-C Work Phone: Start: 06-21-2025 Manual Differential panel - Blood Alannah D'Lakhwinder PA-C Work Phone: Start: 06-17-2025 Basic metabolic pane l calcium total Eber Hess MD Work Phone: Start: 06-17-2025 Follow-up visit EBER HESS Start: 05-03-2025 Follow-up visit EBER HESS Start: 04-17-2025 Comprehensive metabo lic panel Precious Lewis MD Work Phone: Start: 04-17-2025 Manual Differential panel - Blood Precious Lewis MD Work Phone: Start: 04-16-2025 Comprehensive metabo lic panel Precious Lewis MD Work Phone: Start: 04-16-2025 Manual Differential panel - Blood Precious Lewis MD Work Phone: Start: 04-15-2025 OXYGEN THERAPY Precious dawn MD Work Phone: Start: 04-15-2025 BEDSIDE SPIROMETRY Lizeth Farmer APRN - ANCILLARY SPECIALIST Work Phone: Start: 04-15-2025 Blood occult peroxid ase actv qual feces 1-3 spec Albaro Hernández MD Work Phone: Start: 04-15-2025 Radiologic exam ches t single view Yesi Farmer APRN - ANCILLARY SPECIALIST Work Phone: Start: 04-15-2025 Comprehensive metabo lic panel Precious Lewis MD Work Phone: Start: 04-15-2025 Manual Differential panel - Blood Precious Lewis MD Work Phone: Start: 04-14-2025 OXYGEN THERAPY Precious dawn MD Work Phone: Start: 04-14-2025 Thoracentesis needle /cath pleura w/imaging Yesi Farmer APRN - ANCILLARY SPECIALIST Work Phone: Start: 04-14-2025 Comprehensive metabo lic panel Precious Lewis MD Work Phone: Start: 04-14-2025 Manual Differential panel - Blood Precious Lewis MD Work Phone: Start: 04-13-2025 OXYGEN THERAPY Precious dawn MD Work Phone: Start: 04-13-2025 Radiologic exam ches t single view Marian Casarez APRN - ANCILLARY SPECIALIST Work Phone: Start: 04-13-2025 Ecg routine ecg w/le ast 12 lds trcg only w/o i&r Marian Casarez APRN - ANCILLARY SPECIALIST Work Phone: Start: 04-13-2025 Blood gases any comb ination ph [id number] [id number] [id number] Yesi Farmer APRN - ANCILLARY SPECIALIST Work Phone: Start: 04-13-2025 Comprehensive metabo lic [...] Radiologic exam ches t single view Alejandro Queen [employer]AT ENGINEER - ANCILLARY SPECIALIST Work Phone: Start: 04-11-2025 OXYGEN THERAPY Precious [...] comb ination ph pco2 po2 co2 hco3 Precious Lewis MD Work Phone: Start: 04-08-2025 OXYGEN [...] Start: 04-08-2025 Manual Differential panel - Blood Alabro Hernández MD Work Phone: Start: 04-07-2025 OXYGEN [...] Santos Work Phone: Start: 04-05-2025 Antibody screen EBER HESS Comment on above: Performed By: #### L [id number] ####Catalogue Maker: UNA NAVARRO ([id number])[facility] ([facility])[address] Start: 04-05-2025 ABO and Rh group [...] Activity Detail Author Start: 04-05-2030 Lipid panel [facility] Start: 06-21-2026 Creatinine measurement Creatinine Level [facility] Start: 06-21-2026 Potassium measurement Potassium Level [facility] Start: 06-17-2026 Creatinine measurement Creatinine Level [facility] Start: 06-17-2026 Potassium measurement Potassium Level [facility] Start: 04-17-2026 Creatinine measurement [facility] Start: 04-17-2026 Potassium measurement [facility] Start: 04-06-2026 Echocardiography Echocardiogram [facility] Start: 04-06-2026 [facility] Start: 11-03-2025 Depression Monitoring Depression Monitoring [facility] Start: 06-17-2025 End: 06-17-2025 Patient encounter procedure 06/17/2025 10:20 AM EDT Office Visit [facility] Cardiology - [address] [place] [address] Eber Hess MD [address] [place] [address] [address] [place] [address] [facility] Cardiology - [place] Start: 05-18-2025 End: 05-18-2025 ambulatory [facility] Start: 05-18-2025 End: 05-18-2025 Patient encounter procedure 05/18/2025 9:15 AM EDT Office Visit [facility] Pul[facility] Sleep Medicine [facility] [address] [place] [address] Nelson Garcia MD [address] [place] [address] [facility] Sleep [facility] Start: 05-10-2025 COVID-19 Vaccine ( season) COVID-19 Vaccine ( season) [facility] Start: 05-10-2025 Influenza vaccination Influenza Vaccine (#1) [facility] Start: 05-10-2025 [facility] Start: 04-22-2025 End: 04-22-2025 ambulatory [facility] Cardiology - [facility] Start: 04-22-2025 End: 04-22-2025 Patient encounter procedure 04/22/2025 10:00 AM EDT Office Visit [facility] Cardiology - [place] [address] [facility] [place] [address] [place] [id number] Marian Casarez, LOURDES - ANCILLARY SPECIALIST [address] [facility] [address] [place] [address] [facility] Start: 05-10-2024 COVID-19 Vaccine ( season) COVID-19 Vaccine ( season) [facility] Start: 05-10-2024 [facility] Start: 2011 RSV Immunization for Adults (1 - 1-dose 75+ series) RSV Immunization for Adults (1 - 1-dose 75+ series) [facility] Start: 2011 [facility] Start: 1986 Zoster Vaccines (1 of 2) Zoster Vaccines (1 of 2) [facility] Start: 1986 [facility] Start: 1955 DTaP/Tdap/Td Vaccines (1 - Tdap) DTaP/Tdap/Td Vaccines (1 - Tdap) [facility] Start: 1955 Pneumococcal Vaccine: 50+ Years (1 of 2 - PCV) Pneumococcal Vaccine: 50+ Years (1 of 2 - PCV) [facility] Start: 1955 [facility] Start: 1948 Depression Monitoring Depression Monitoring [facility] Start: 1948 [facility] Start: 1936 Medicare Annual Wellness (AWV) Medicare Annual Wellness (AWV) [facility] Start: 1936 [facility] Bedside spirometry [facility] Work Phone: End: 04-05-2025 Hemoglobin [Mass/volume] in Blood [facility] Work Phone: End: 04-05-2025 Hemoglobin.gastrointestina l.lower [Presence] in Stool by Immunoassay --1st specimen [facility] Work Phone: Immunizations Immunization Date Immunization Notes Care Provider Fa cility 12-05-2020 Covid (Moderna) [facility] Work Phone: 11-07-2020 Covid ([facility]) [facility] Work Phone: 06-30-2020 influenza virus vaccine, unspecified formulation Katie Engle RN [facility] Payers Date Payer Category Payer Self-pay [id number] 2017 [facility] - [facility] [id number] 2017 Medicare supplementa l policy (as second payer) [id number] 2017 Unknown [id number] 2001 Medicare [id number] 2001 Medicare [id number] Unknown [id number] Unknown [id number] Unknown [id number] Social History Date Type Detail Facility [facility] Work Phone: Start: 1935 Sex Assigned At Male W [facility] Work Phone: Start: 04-08-2025 End: 05-03-2025 Tobacco smoking status NHIS Never smoked tobacco [facility] Start: 04-08-2025 End: 05-03-2025 History of Social function [facility] Start: 04-08-2025 End: 05-03-2025 [facility] Utilities [facility] Has the [employer], or [employer] threatened to shut off services in your home in past 12Mo No [facility] How often to you hav e a drink containing alcohol? Never [facility] How many standard drinks containing alcohol do you have on a typical day? [facility] (I/We) worried landon er (my/our) food would run out before (I/we) got money to buy more. Never true [facility] Start: 1935 [facility] Start: 04-05-2025 Sex Male (finding) [facility] Start: 05-03-2025 End: 06-15-2025 Tobacco use and exposure Smokeless tobacco non-user [facility] Start: 06-15-2025 Tobacco smoking stat us NHIS Ex-smoker [facility] History of tobacco use Current smoker [facility] History of tobacco use [facility] Start: 06-17-2025 Alcoholic beverage intake Ex-drinker (finding) [facility] Goals Date Patient Goal Desired Activity /State Functional Status Date Assessment Result Facility 05-03-2025 Patient Health Questionnaire 2 item (PHQ- 2) [Reported] [facility] Clinical Notes 04-05-2025 to 06-24-2025 LOURDES Belle CNP - 06/24/2025 7:46 PM EDTTelephone Encounter - Sia Ayala RN - 06/24/2025 2:50 PM EDTTelephone Encounter - Sia Ayala RN - 06/24/2025 2:50 PM EDTDischarge Instructions Note Date & Type Note Facility 06-24-2025 History of Presen t illness Narrative Attempted to meet with pt. He no longer resides here. Facility uncertain where he has moved to. Message left on primary contacts number Bereket to return call to the palliative group at [phone] documented in this encounter [facility] 06-24-2025 Telephone encounter Note Per Dr Hess: Would stop aldactone all together due to Cr 1.8 and low normal BP. Also stop hydralazine and see how bp is I called and spoke to the nurseKylah at [facility] relaying note from Dr Hess. She verbalized understanding-she noted Mary had a weight gain (but morning staff forgot to weight prior to breakfast)-he was up 5 lbs; they will recheck tomorrow. I let her know that usually okay to give an additional 20 mg of torsemide for weight gain of 3 lb in a day, 5 in a week, shortness of breath or edema; usually can do it up to 3 days. She notes she already sent a note out to their provider and will likely give him an additional torsemide today. [facility] 06-24-[address] Hess: Would stop aldactone all together due to Cr 1.8 and low normal BP. Also stop hydralazine and see how bp is I called and spoke to the nurseKylah at [facility] relaying note from Dr Hess. She verbalized understanding-she noted Mary had a weight gain (but morning staff forgot to weight prior to breakfast)-he was up 5 lbs; they will recheck tomorrow. I let her know that usually okay to give an additional 20 mg of torsemide for weight gain of 3 lb in a day, 5 in a week, shortness of breath or edema; usually can do it up to 3 days. She notes she already sent a note out to their provider and will likely give him an additional torsemide today. Images from the original note were not included. Fax cover sheet confirms pt is taking torsemide 20 mg daily; Aldactone 25 mg on hold at the moment, but they will resume it tomorrow unless ordered otherwise. They note they are frequently holding metoprolol and hydral d/t low BP's (both meds have parameters to hold if SBP <105.) BP's ranging 90/50-110/60's. Frequently SBP-90's/low 100's. HR's 50-70's. Cr improved to 1.8 today; was 2.05 on 06/17/25. FYI: Went to [facility] ER on 06/21/25 for blood transfusion as HGB at facility was 6.9 when they checked it 06/21/25. Labs from [facility] Today: 06/24/25 BMP, blood pressure, pulse summary, and medication notes faxed from [facility]. Records scanned to Media. documented in this encounter [facility] 06-24-2025 Telephone encounter Note Images from the original note were not included. Fax cover sheet confirms pt is taking torsemide 20 mg daily; Aldactone 25 mg on hold at the moment, but they will resume it tomorrow unless ordered otherwise. They note they are frequently holding metoprolol and hydral d/t low BP's (both meds have parameters to hold if SBP <105.) BP's ranging 90/50-110/60's. Frequently SBP-90's/low 100's. HR's 50-70's. Cr improved to 1.8 today; was 2.05 on 06/17/25. FYI: Went to [facility] ER on 06/21/25 for blood transfusion as HGB at facility was 6.9 when they checked it 06/21/25. Labs from [facility] Today: [facility] 06-24-2025 Telephone encounter Note 06/24/25 BMP, blood pressure, pulse summary, and medication notes faxed from [facility]. Records scanned to Media. [facility] 06-21-2025 Emergency department Note This RN at bedside for first 15 minutes of blood transfusion. Pt tolerating transfusion. VS updated in system. [facility] 06-21-2025 Emergency department Note This RN at bedside for first 15 minutes of blood transfusion. Pt tolerating transfusion. VS updated in system. Emergency Department Encounter [facility] ED Patient: Mary Charles : 1935 [...] the emergency department lab work today from senior living facility showed hemoglobin of 6.8. Patient is [...] unit of blood and discharged back to senior living facility. Diagnostics interpreted by me: I personally [...] [employer] Sagar Gilliam DO 06/21/252211 Patient arrives via EMS from [facility] following bloodwork that showed low hemoglobin. No overt signs of bleeding on arrival. Patient A&O4. Patient does endorse previous blood transfusions. documented in this encounter [facility] 06-21-2025 Emergency department Triage note Patient arrives via EMS from [facility] following bloodwork that showed low hemoglobin. No overt signs of bleeding on arrival. Patient A&O4. Patient does endorse previous blood transfusions. [facility] 06-21-2025 Physician Emergency department Note Emergency Department Encounter [facility] ED Patient: Mary Charles : 1935 [...] the emergency department lab work today from senior living facility showed hemoglobin of 6.8. Patient is [...] unit of blood and discharged back to senior living facility. Diagnostics interpreted by me: I personally [...] [employer] Sagar Gilliam DO 06/21/252211 [facility] Work Phone: 06-17-2025 History of Presen t illness Narrative [facility] Cardiology [facility] CARDIOLOGY - [address] [facility] [address] Dept: [phone] Dept Visit type: Established : 1935 Chief Complaint: Chief Complaint Patient presents with Follow-up 6 Week History of Present Illness: Mary Charles is a 89 y.o. male with HFrEF, Coronary artery disease who is here for followup. Prior events : He presented to [facility] 03/2025 with progressive shortness of breath, [...] Rfl: 1 documented in this encounter [facility] 05-06-2025 History of Presen t illness Narrative Images from the original note were not included. [facility] Palliative Care Site of Care: [facility] Chief Complaint: Mary Charles is a 89 [...] hospice conversation today Debility Pt now at [facility] Working with PT/OT Palliative encounter Will continue [...] Falls: No Current Interventions: PT, OT, and snf Current Assistive Devices: walker and wheelchair ROS: See palliative care ROS/ESAS below; All other systems were reviewed and are negative. 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 TBD LOURDES Garcia CNP [1] No past medical history on file. [...] Known Allergies documented in this encounter [facility] 05-03-2025 History of Presen t illness Narrative Images from the original note were not included. [facility] CARDIOLOGY - [address] [facility] [address] Dept: [phone] Dept Visit type: Established : 1935 Reason [...] of EF 2. 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 Assessment & Plan: [...] discharge. Hgb 8.2 per labs 04/26/2025 from [facility]. -No aspirin due to anemia - [...] weeks (around 06/14/2025). Wants to establish in [place]. Subjective No prior history as he has not been to a doctor for many years He presented to [facility] 03/2025 with progressive shortness of breath, [...] on file. documented in this encounter [facility] 05-03-2025 Evaluation + Plan note Associated Problem(s): Abnormal CAT scan CT abdomen with mural thickening involving the cecum and terminal ileum concern for neoplasm versus inflammation. Seen by GI with plan for EGD and colonoscopy once stable. -GI follow-up [facility] 05-03-2025 Miscellaneous Notes Associated Problem(s): Abnormal [...] discharge. Hgb 8.2 per labs 04/26/2025 from [facility]. -No aspirin due to anemia - [...] today Associated Problem(s): 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 Suspected CAD causing [...] of EF documented in this encounter [facility] 05-03-2025 Evaluation + Plan note Associated Problem(s): PAC (premature atrial contraction) Noted to have irregular heart rhythm during hospitalization and multiple EKGs show sinus rhythm with frequent PACs. -Continue Toprol 25 mg p.o. daily [facility] 05-03-2025 Evaluation + Plan note Associated [...] discharge. Hgb 8.2 per labs 04/26/2025 from [facility]. -No aspirin due to anemia - continue to monitor [facility] 05-03-2025 Evaluation + Plan note Associated Problem(s): Acute kidney injury superimposed on chronic kidney disease (HCC) (HCC) Creatinine 1.46 on admission. Peak creatinine 1.78. Most recent creatinine 1.8 per labs 04/26/2025 - Continue to monitor - may have to accept a higher creatinine to keep him out of HF [facility] 05-03-2025 Evaluation + Plan note Associated Problem(s): Pleural effusion Bedside thoracentesis 04/09/2025 with 1 L removed from the left and 600 mL removed from the right. Repeat left thoracentesis 04/14/2025 with 600 mL removed. - continue to monitor, appears euvolemic today [facility] 05-03-2025 Evaluation + Plan note Associated Problem(s): 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 Suspected CAD causing HFrEF. NO angina. - no ASA 2/2 anemia - continue Toprol 25 mg po daily - continue atorvastatin 20 mg po daily - not a candidate or invasive workup due to anemia, advanced age and frailty [facility] 05-03-2025 Evaluation + Plan note Associated Problem(s): [...] 3 months for re-evaluation of EF [facility] 04-19-2025 History of Presen t illness Narrative Pt was followed by the Palliative Care Team during hospitalization at [facility]. Provider is recommending continued Palliative follow up in the community. Referral made referral to [facility] Palliative Care SNF team. documented in this encounter [facility] 04-17-2025 Nurse Note Report given to Flor MYERS at [facility]. All belongings sent with patient, including eyewear. HL removed, site WNL. RN contacted SPINDLE REPAIRER Marleny concerning attempt to wean patient to room [...] bed very aggressively. 2 RN , 2 nursing service director were at bedside trying to calm him [...] normal limits. documented in this encounter [facility] 04-17-2025 Miscellaneous Notes Patient Choice Patient Name: MARY CHARLES Date of : 1935 Share Number: 0 Method of Sharing: electronic Date of Sharin2025-04-08 13:13:49.000 Responding Recipient: [email or web address] Ranked Providers Sent Referral Rank: 2 Name: Monika Montoya [facility] Phone: [phone] Address: [address] [place] [address] Rank: 3 Name: [facility], [facility]. Phone: [phone] Address: [address] [place] [address] Rank: 1 Name: Jan FUENTES Member Phone: [phone] Address: [address] [place] [address] All Providers Sent Referral Name: Monika LOZOYA Phone: [phone] Address: [address] [place] [address] Name: [employer] Phone: [phone] Address: [address] [place] [address] Name: [facility] Member Phone: [phone] Address: [address] [place] [address] Care Management Progress Note Short Medical why still here: Pending placement. Planned Discharge Disposition: Snf Facility ([facility]) Barriers/Today we still Wait: Clinical stability Length [...] Requested cot transport for 1230 via [employer]. Earlier Media accepted for 1230. Notified bedside RN of transport time and number to call report. Notified facility of transport time and [facility] Spoke with daughter Anahy Charles at [phone] regarding transportation plan. Confirmed pickup time is 1230. Discussed patient may have a co-pay for ambulance depending on their individual insurance coverage. Advised daughter Anahy to call number on back of insurance card with questions or concerns. Tasked weekend TTC to follow for possible dc over the weekend. clinical quality manager to follow and assist as needed. 7000 Complete in [employer] for SNF [facility] per TCC request Care Management Progress Note [...] at this time. Planned Discharge Disposition: [facility] -Notified facility of pt going to there facility under skilled therapy at this time. -Pt wanted a facility where palliative/hospice can follow if he changes his mind. Informed facility of pt's wishes. Pt can transition to hospice services at that facility if he chooses. -Tasked WARD MAID to complete and upload into [employer] 7000. Barriers/Today we still Wait: Clinical stability, [...] will still need placement at a facility. -clinical quality manager to follow and assist as needed. Care [...] family later on Saturday. Planned Discharge Disposition: Snf Facility vs hospice Barriers/Today we still Wait: Receiving IV medication, clinical stability, Post-discharge arrangement completion (SNF vs hospice) clinical quality manager to follow and assist as needed. Length of Stay (Days): 9 GMLOS: 3.9 Family Communication Number Called: [phone] Name of Designated Family Adult School Teacher: Anahy Charles Relationship to patient: Daughter Outcome: I spoke with the individual listed above Family Adult School Teacher Updated on the Following: --provided medical update. [...] on Saturday. Signed, Bela Agustin APRN, CNP, [facility] Palliative Care/Hospice PGR [phone] Care Management Progress Note Short Medical why still here: did send bipap settings to [facility] and requested for them to obtain bipap unit for patient to utilize at their facility. Currently requiring oxygen at 1 liter. Anticipate probable dc tomorrow. Will need 7000 and transport arranged. Planned Discharge Disposition: Snf Facility Barriers/Today we still Wait: Administering IV medications, Clinical stability, Facility pre-cert Length of Stay (Days): 8 GMLOS: 3.9 . Referral placed to SNF- [facility] via [facility] per TCC request. Await review and response regarding ability to accept. TCC notified. Care Management Progress Note Short Medical why still here: reviewed chart. Dgt has selected SNF choices virtually - 1. [facility] 2. [facility] 3. [facility]. Tasked WARD MAID to create these referrals - will follow. Planned Discharge Disposition: Snf Facility Barriers/Today we still Wait: Administering IV medications, Clinical stability, Facility pre-cert Length of Stay (Days): 7 GMLOS: 3.9 Called and spoke with deya Higginbotham of patient, and provided DC planning updates. [facility] willing to accept. Updates sent to facility. ICU Transfer Checklist Transfer Med Reconciliation (resume home meds if able, convert to PO if able) Complete Antibiotics (name, indication, duration, convert to PO if able) None Steroid (indication, duration, convert to PO if able) None Anticipated [place] Medications (ICU initiated) or Dose Changes and Indication No Permanently Discontinued Home Medications and Reason for medication contraindication No García Catheter (please remove if able. Note: place DC order) No Central Line (please remove if able. Note: place DC order) No Transfer Discussed with: Dr. Regan with [facility] If additional questions for ICU team within 24 hours of ICU transfer, page [phone] for clarifications. Will assume care as patient is being transferred out of ICU. D/w Dr Lewis via secure chat Images from the original note were not included. [facility] Palliative Care Transitions of Care Note Mary [...] care of himself. -Consider medication for mood? -[employer] C[employer] Spinner support requested. -Monitor. Hx CKD III -CrCl [...] NAME: TBD, referrals have been sent to [facility], [facility]. Follow up with palliative team on office [...] care and cardiology following. Planned Discharge Disposition: Snf Facility Barriers/Today we still Wait: Clinical stability, Carbon Paper Coating Machine Setter recommendations (comment), Diagnostic workup, Administering IV medications, [...] diminished in all anterior and posterior lung lopze bilaterally. Pt is on O2- 4L NC. 2+ pitting edema noted to bilateral lower extremities. PCXR done. ABG drawn and sent by Resp Therapy. Eval by NIYA Valladares. Care Management Progress Note Short Medical why [...] need if SNF is recommended by PT. clinical quality manager to follow and assist as needed. Length of Stay (Days): 1 GMLOS: No GMLOS Documented documented in this encounter [facility] 04-17-2025 Note [facility] 04-17-2025 Hospital course Narrative Discharge Summary [...] Your Medications These medications were sent to [facility] [address] [place] [address] Hours: Saturday to Saturday 10 am to 6 pm atorvastatin 20 MG tablet hydrALAZINE 10 MG tablet metoprolol succinate XL 25 MG 24 hr tablet senna-docusate sodium 8.6-50 MG tablet spironolactone 25 MG tablet Torsemide 40 MG tablet DIET: Adult diet Regular; No Added Salt (3-4 gm) ACTIVITY: No restriction. COMPLEXITY OF FOLLOW UP: [x] Moderate Complexity: follow up within 7-14 calendar days (08650) [] Severe Complexity: follow up within 7 calendar days (27992) FOLLOW UP TESTING, PENDING RESULTS OR REFERRALS AT TRANSITIONAL CARE VISIT: [x] Yes [] No PENDING STUDIES: DISPOSITION: Skilled Facility FACILITY/HOME CARE AGENCY NAME: Follow up with Nelson Garcia MD [address] [facility] [address] Go on 05/18/2025 Pulmonary hospital follow-up at 9:15 AM Marian Casarez APRN - ANCILLARY SPECIALIST [address] [facility] [address] [facility] [address] Follow up on 04/22/2025 Cardiology follow-up at 10:00 AM. [facility] [place] [address] [facility] [address] Follow up in 1 month(s) on [...] 10:12 AM documented in this encounter [facility] 04-17-2025 History of Presen t illness Narrative [facility] Cardiology /Electrophysiology Progress Note HPI / [...] follow-up 04/22/2025 at 10 AM at the [facility] with myself, Marian Casarez CNP. I [...] No results found for: TROPDELTSEC Recent Labs 04/15/2521104/16/2533804/17/25 0440 NA 139 140 138 K 3.5 3.6 3.6 CL 90* 87* 88* CO2 40* 43* 40* BUN 43* 46* 46* CREATININE 1.58* 1.81* 1.67* Recent Labs 04/15/2521104/16/2533804/17/25 0440 WBC 12.4* 13.1* 12.0* HGB 7.8* [...] torsemide, 40 mg, Oral, Daily [2] [facility] Department Progress Note Comment or [...] place, saturations remain appropriate. -s/p thoracentesis on 04-09 and 04-14, likely 2/2 CHF. -PAP ordered patient continues [...] care of himself. -Consider medication for mood? -Hard Candy Spinner support requested. -Monitor. Hx CKD III -CrCl [...] wear PAP at night. S/p thoracentesis on 8- and then 8-6 again. Remains full code and wanting to [...] detailed in the note above. Bela Agustin, [place] Palliative Care Assessments: Goals of care: Continue [...] other systems were reviewed and are negative. [place] Symptom Assessment Score [place] Score Pain Score (if non-verbal, add .FLACC [...] notes): BMP, CBC 04/16/25 Pulmonology note from 04-1504/16/25 Data in Support of Terminal Illness: Is [...] On: Kcal/kg Weight Used for Energy Requirements: [place] Weight for Energy Calculation (kg): 70 kg Total Energy Requirements (kcals/day): 1202-9542 (25-30) Weight Used for Protein Requirements: [place] Weight in Kg Used for Protein Requirements: [...] Body Weight: (none on file to review) [place] Body Weight (lbs) (Calculated): 154 lbs [place] Body Weight (Kg) (Calculated): 70 kg % [place] Body Weight (Calculated): 129.9 % BMI (kg/m2) [...] Continue current diet Kristin Duffy RD Contact: [phone] or via Secure Chat Images from the original note were not included. OCCUPATIONAL THERAPY [facility] Treatment Note Name/MRN: Mary Charles ([id number]) Date of : 1935 Age: 89 y.o. Room[facility]Bed: [facility]268/Banner B Visit #: 4 out of 7 Discharge Recommendation: Snf Facility Equipment Needed: No Assessment Pt tolerated [...] History: Medical History[1] LABS: CBC: Recent Labs 04/14/2545604/15/2521104/16/25 0339 WBC 12.3* 12.4* 13.1* RBC 3.27* 3.33* 3.37* HGB 7.6* 7.8* 8.0* HCT 27.3* 28.0* 28.4* MCV 83.5 84.1 84.3 RDW 25.4* 25.3* 25.7* PLT 293 332 405 BMP: Recent Labs 04/14/2545604/15/252 04/16/25 0339 NA 140 139 140 K 3.8 3.5 3.6 CL 92* 90* 87* CO2 39* 40* 43* BUN 39* 43* 46* CREATININE 1.43* 1.58* 1.81* GLUCOSE 97 130* 114 CALCIUM 8.1* 8.2* 8.2* ANIONGAP 9 9 10 LIVER PROFILE: Recent Labs 04/14/25 0457 04/15/25 0212 04/16/25 0339 AST 19 21 23 ALT <6 <6 [...] ANAHY CHARLES Mobile Relation: Daughter Preferred language: Swiss Laborer Tin Can needed? No Albaro Hernández MD Division of Hospitalist Medicine Acute care [facility] [1] History reviewed. No pertinent past [...] from the original note were not included. [facility], Pulmonary Medicine [address] [place] [address] Patient - Mary Charles, Age - 89 y.o. - 1935 Room Number - B2-268/B2-268 B Consulting - Albaro Hernández MD Primary Care Physician - No primary care provider on file. [facility] # - [id number] Date of Admission - 04/05/2025 3:55 PM [...] last 7 days Lab Units 04/16/25 0339 WBC AUTO 10*3/uL 13.1* HEMOGLOBIN g/dL 8.0* HEMATOCRIT % 28.4* PLATELETS 10*3/uL 405 BMP: Results from last 7 days Lab Units 04/16/25 03304/15/25 02104/14/25 0457 SODIUM mmol/L 140 139 140 POTASSIUM [...] from last 7 days Lab Units 04/16/25 03304/15/2521104/14/25 0457 ALK PHOS U/L 55 48 47 [...] failure, unspecified heart failure type (HCC) [facility] [place] [facility] Cardiology /Electrophysiology Progress Note HPI / Interval [...] 22 (A) 55 - 100 % Final Marian Casarez, SMALL BOAT ENGINEER - ANCILLARY SPECIALIST Date Of Service 04/16/2025 [1] atorvastatin, 20 mg, Oral, Nightly hydrALAZINE, 10 mg, Oral, TID metoprolol succinate XL, 25 mg, Oral, Daily pantoprazole, 40 mg, Oral, qAM AC senna-docusate sodium, 2 tablet, Oral, BID spironolactone, 25 mg, Oral, Daily torsemide, 40 mg, Oral, Daily [2] [facility] Department Progress Note Comment or [...] in the care of this patient, [facility] [place] [facility] Cardiology /Electrophysiology Progress Note HPI / Interval [...] No results found for: TROPDELTSEC Recent Labs 04/13/25 0214 04/14/2545604/15/25211 NA 139 140 139 K 3.4* 3.8 3.5 CL 93* 92* 90* CO2 36* 39* 40* BUN 37* 39* 43* CREATININE 1.46* 1.43* 1.58* Recent Labs 04/13/25 0214 04/13/25 0424 04/14/2545604/15/25211 WBC 12.7* -- 12.3* 12.4* HGB 7.8* [...] from the original note were not included. [facility], Pulmonary Medicine [address] [place] [address] Patient - Mary Charles, Age - 89 y.o. - 1935 Room Number - B2-268/B2-268 B Consulting - Albaro Hernández MD Primary Care Physician - No primary care provider [facility] file[id number] Date of Admission - 04/05/2025 3:55 PM [...] Units 04/15/25 0212 04/14/25 0457 04/13/25 0214 ALK PHOS U/L 48 47 [...] 276 -- 293 332 BMP: Recent Labs 04/13/25 0214 04/14/2545604/15/25 0212 NA 139 140 139 K 3.4* 3.8 3.5 CL 93* 92* 90* CO2 36* 39* 40* BUN 37* 39* 43* CREATININE 1.46* 1.43* 1.58* GLUCOSE 94 97 130* CALCIUM 8.1* 8.1* 8.2* ANIONGAP 10 9 9 LIVER PROFILE: Recent Labs 04/13/25 0214 04/14/25 0457 04/15/25 0212 AST 25 19 21 ALT <6 <6 [...] ANAHY CHARLES Mobile Relation: Daughter Preferred language: Swiss Laborer Tin Can needed? No Albaro Hernández MD Division of Hospitalist Medicine Acute [facility] [1] History reviewed. No pertinent past [...] 04/16/2025] polyethylene glycol (PEG) 3350 [4] [facility] Department Progress Note Comment or [...] in the care of this patient, [facility] [place] [facility] Cardiology /Electrophysiology Progress Note HPI / Interval [...] No results found for: TROPDELTSEC Recent Labs 04/12/2532404/13/25 0214 04/14/25 0457 NA 139 139 140 K 3.7 3.4* 3.8 CL 95* 93* 92* CO2 37* 36* 39* BUN 40* 37* 39* CREATININE 1.53* 1.46* 1.43* Recent Labs 04/12/2532404/13/254 04/13/25 0424 04/14/25 0457 WBC 12.0* 12.7* -- [...] original note were not included. OCCUPATIONAL THERAPY [facility]'s Name/MRN: Mary Charles ([id number]) Date: 04/14/2025 Attempted to see pt for OT tx. Pt reported being very fatigued after getting cleaned up and working with PT this AM. Unable to encourage participation in OT tx at this time. Marleni Victor OT Images from the original note were not included. PHYSICAL THERAPY [facility] Treatment Note Name/MRN: Mary Charles ([id number]) Date of : 1935 Age: 89 y.o. Room/Bed: B2-268/B2268 B Visit #: 4 out of 5 Discharge Recommendation: Snf Facility Equipment Needed: No Assessment Patient supine [...] 7 10 9 LIVER PROFILE: Recent Labs 04/12/2532404/13/2521304/14/25456 AST 19 25 19 ALT <6 <6 [...] Contact: MELVINANAHY Mobile Relation: Daughter Preferred language: Swiss Laborer Tin Can needed? No Albaro Hernández MD Division of [...] from the original note were not included. [facility], Pulmonary Medicine [address] [place] [address] Patient - Mary Charles, Age - 89 y.o. - 1935 Room Number - B2-268/B2-268 B Consulting - Albaro Hernández MD Primary Care Physician - No primary care provider on file[id number] Date of Admission - 04/05/2025 3:55 PM [...] last 7 days Lab Units 04/14/25 0457 04/13/25 0214 04/12/25 0325 SODIUM mmol/L 140 139 139 [...] last 7 days Lab Units 04/14/25 0457 04/13/25 0214 04/12/25 0325 ALK PHOS U/L 47 52 [...] at home. I spoke with Breana from [employer]. Likely will need to have bedside spirometry [...] On: Kcal/kg Weight Used for Energy Requirements: [place] Weight for Energy Calculation (kg): 70 kg Total Energy Requirements (kcals/day): 6837-8532 (25-30) Weight Used for Protein Requirements: [place] Weight in Kg Used for Protein Requirements: 70 kg Estimated Total Protein (g/day): 56-84 (.8-1.2) Estimated Daily Total Fluid (ml/day): per MD Nutrition Related Findings: trace bilateral lower extremity edema per Pulmonology. abdomen soft, bm 8/5. k+ 3.4, cl 93, c02 36, bun [...] Body Weight: (none on file to review) [place] Body Weight (lbs) (Calculated): 154 lbs [place] Body Weight (Kg) (Calculated): 70 kg % [place] Body Weight (Calculated): 136.1 % BMI (kg/m2) [...] Oral Nutrition Supplement Kristin Duffy RD Contact: *[phone] or via Secure Chat Images from the original note were not included. OCCUPATIONAL THERAPY [facility] Treatment Note Name/MRN: Mary Charles ([id number]) Date of : 1935 Age: 89 y.o. Room/Bed: Banner/Banner B Visit #: 3 out of 7 Discharge Recommendation: Snf Facility Equipment Needed: No Prior Level of [...] OT at 04/14/2025 9:03 AM EDT [facility] [place] [facility] Cardiology /Electrophysiology Progress Note HPI / Interval [...] results found for: TROPDELTSEC Recent Labs 04/11/25 0501 04/12/25 0325 04/13/25 0214 NA 139 139 139 K 3.6 3.7 3.4* CL 94* 95* 93* CO2 35* 37* 36* BUN 36* 40* 37* CREATININE 1.55* 1.53* 1.46* Recent Labs 04/11/25 0501 04/12/25 0325 04/13/25 0214 04/13/25 0424 WBC 13.8* 12.0* 12.7* -- HGB [...] 22 (A) 55 - 100 % Final Marian Casarez, SMALL BOAT ENGINEER - ANCILLARY SPECIALIST Date Of Service 04/13/2025 [1] atorvastatin, 20 [...] Recent Labs 04/11/25 0501 04/12/25 0325 04/13/25 0214 04/13/25 0424 WBC 13.8* 12.0* 12.7* -- RBC 3.48* 3.20* 3.36* -- HGB 7.9* 7.4* 7.8* 11.3* HCT 28.9* 26.8* 28.2* -- MCV 83.0 83.8 83.9 -- RDW 24.2* 24.3* 25.0* -- PLT 313 272 276 -- BMP: Recent Labs 04/11/25 0501 04/12/25 0325 04/13/25 0214 NA 139 139 139 K 3.6 3.7 3.4* CL 94* 95* 93* CO2 35* 37* 36* BUN 36* 40* 37* CREATININE 1.55* 1.53* 1.46* GLUCOSE 103 103 94 CALCIUM 8.1* 7.9* 8.1* ANIONGAP 10 7 10 LIVER PROFILE: Recent Labs 04/11/25 0501 04/12/25 0325 04/13/25 0214 AST 18 19 25 ALT <6 <6 [...] ANAHY CHARLES Mobile Relation: Daughter Preferred language: Swiss Laborer Tin Can needed? No Albaro Hernández MD Division of Hospitalist Medicine [facility] [1] History reviewed. No pertinent past medical [...] from the original note were not included. [facility], Pulmonary Medicine [address] [place] [address] Patient - Mary Charles, Age - 89 y.o. - 1935 Room Number - B2-268/B2-268 B Consulting - Albaro Hernández MD Primary Care Physician - No primary care provider on file. Date of Admission - 04/05/2025 3:55 PM [...] Results from last 7 days Lab Units 04/13/2521304/12/2532404/11/25 0501 SODIUM mmol/L 139 139 139 POTASSIUM mmol/L 3.4* 3.7 3.6 CHLORIDE mmol/L 93* 95* 94* CO2 mmol/L 36* 37* 35* BUN mg/dL 37* 40* 36* CREATININE mg/dL 1.46* 1.53* 1.55* GLUCOSE mg/dL 94 103 103 CALCIUM mg/dL 8.1* 7.9* 8.1* ABG: Results from last 7 days Lab Units 04/13/2542304/08/25205204/08/25 1654 PH ART 7.426 7.332* 7.296* PCO2 ART mm Hg 59.2* 75.1* 80.1* PO2 ART mm Hg 79.2* 104.0 92.0 HCO3 ART mmol/L 38.1* 38.9* 38.2* O2 SAT ART % 95.1* 97.0 96.1* BASE EXC ART mmol/L 11.7* 11.2* 9.9* SOURCE OF OXYGEN Nasal Cannula (LPM) Non-Invasive Ventilator Nasal Cannula (LPM) LIVER PROFILE Results from last 7 days Lab Units 04/13/2521304/12/2532404/11/25 0501 ALK PHOS U/L 52 49 53 [...] original note were not included. OCCUPATIONAL THERAPY [facility] Treatment Note Name/MRN: Mary Charles ([id number]) Date of : 1935 Age: 89 y.o. Room/Bed: B2-268/B2-268 B Visit #: 2 out of 7 visits Discharge Recommendation: Snf Facility Equipment Needed: No Prior Level of Function Prior Level of ADL Function: Required Assist (for showering and pt wipes himself down with wash cloth IND) Prior Level of Mobility: Independent; Device: Rollator Prior Level of Transfers: Independent Assessment Pt agreeable to therapy at first attempt ([phone]) but states that he first needs to [...] care of himself. -Consider medication for mood? -Hard Candy Spinner support requested. -Monitor. Hx CKD III -CrCl [...] hospital setting and will send referral to [facility] care coordinator for palliative SNF referral. -Questions answered, [...] other systems were reviewed and are negative. [place] Symptom Assessment Score [place] Score Pain Score (if non-verbal, add .FLACC [...] hospice appropriate? Eligible, but not consistent with [facility] at this time LOURDES Ordaz CNP Hospitalist Progress Note 04/12/2025 [phone]: Please secure chat me for patient care issues. [phone]: Please secure chat [facility] night Hospitalist for any issues. Subjective: Admit Date: 04/05/2025 PCP: No primary care provider on file. Room#: -268/[facility]268 B Brief History: Patient is an 89-year-old [...] diet Regular; No Added Salt (3-4 gm) @[id number]@ 24HR INTAKE/OUTPUT: Intake/Output Summary (Last 24 hours) at 04/12/2025 1059 Last data filed at 04/12/2025 0917 Gross per 24 hour Intake 240 ml Output 650 ml Net -410 ml Past Medical History: Medical History[1] LABS: CBC: Recent Labs 04/10/25 0443 04/11/25 0501 04/12/25 0325 WBC 12.4* 13.8* 12.0* RBC 3.18* 3.48* 3.20* HGB 7.2* 7.9* 7.4* HCT 26.1* 28.9* 26.8* MCV 82.1 83.0 83.8 RDW 22.9* 24.2* 24.3* PLT 294 313 272 BMP: Recent Labs 04/10/253 04/11/25 0501 04/12/25 0325 NA 142 139 [...] care input PT and OT assessments recommended senior living facility -am labs, replace lytes prn -increase activity -DVT prophylaxis: [] Lovenox [] Heparin [x] SCDs [x] Encourage ambulation [] Already on Anticoagulation - GI prophylaxis : Anticipated Discharge - Date -April 14 or - Location -senior living facility - Pending the following -clinical improvement, specialist clearance Total time spent (which include face to face and non face to face encounters) : 53 minutes Toxic drug monitoring/narrow therapeutic index drug monitoring : # Drug name : # Route administered : # Method of monitoring : Extended Emergency Contact Information Primary Emergency Contact: ANAHY CHARLES Mobile Relation: Daughter Preferred language: Swiss Laborer Tin Can needed? No Westley Martinez MD Division of Hospitalist Medicine Acute [facility] PAGER: PluggedIn chat [1] History reviewed. No pertinent past [...] original note were not included. PHYSICAL THERAPY [facility] Treatment Note Name/MRN: Mary Charles ([id number]) Date of : 1935 Age: 89 y.o. Room/Bed: B2-268/B2268 B Visit #: 3 out of 5 visits Discharge Recommendation: Snf Facility Equipment Needed: No Assessment Pt making [...] PT at 04/12/2025 10:47 AM EDT [facility] Cardiology /Electrophysiology Progress Note HPI / Interval History: Mary Charles has no prior cardiac history (has not seen a physician for many years) who presented to [facility] with worsening SOB, hypoxia and edema. [...] No results found for: TROPDELTSEC Recent Labs 04/10/2544204/11/25 0501 04/12/25 0325 NA 142 139 139 K 3.2* 3.6 3.7 CL 95* 94* 95* CO2 35* 35* 37* BUN 32* 36* 40* CREATININE 1.65* 1.55* 1.53* Recent Labs 04/10/2544204/11/25 0501 04/12/25 0325 WBC [...] Final LOURDES Benson CNP Date Of Service 04/12/2025 [1] [facility] Department Progress Note Comment or [...] original note were not included. OCCUPATIONAL THERAPY [facility] Treatment Note Name/MRN: Mary Charles ([id number]) Date of : 1935 Age: 89 y.o. Room/Bed: B2-268/B2268 B Visit #: 1 out of 7 Discharge Recommendation: Snf Facility Equipment Needed: No Prior Level of [...] 04/11/2025 1:38 PM EDT Hospitalist Progress Note 04/11/2025 [phone]: Please secure chat me for patient care issues. [phone]: Please secure chat [facility] night Hospitalist for any issues. Subjective: Admit [...] diet Regular; No Added Salt (3-4 gm) @[id number]@ 24HR INTAKE/OUTPUT: Intake/Output Summary (Last 24 hours) at 04/11/2025 1051 Last data filed at 04/10/2025 1947 Gross per 24 hour Intake -- Output 275 ml Net -275 ml Past Medical History: Medical History[1] LABS: CBC: Recent Labs 04/09/25 04004/10/2544204/11/25 0501 WBC 11.2* 12.4* 13.8* RBC 3.32* 3.18* 3.48* HGB 7.5* 7.2* 7.9* HCT 27.7* 26.1* 28.9* MCV 83.4 82.1 83.0 RDW 21.8* 22.9* 24.2* PLT 279 294 313 BMP: Recent Labs 04/09/25 04004/10/25 0443 04/11/25 0501 NA 142 142 139 [...] - Location -Home with home health versus senior living facility - Pending the following -PT and [...] ANAHY CHARLES Mobile Relation: Daughter Preferred language: Swiss Laborer Tin Can needed? No Westley Martinez MD Division of Hospitalist Medicine [facility] PAGER: Epic chat [1] History reviewed. No [...] 04/12/2025] torsemide, 40 mg, Oral, Daily [facility] Cardiology /Electrophysiology Progress Note HPI / Interval History: Mary Charles has no prior cardiac history (has not seen a physician for many years) who presented to [facility] with worsening SOB, hypoxia and edema. [...] No results found for: TROPDELTSEC Recent Labs 04/09/2540804/10/2544204/11/25 0501 NA 142 142 139 K 3.5 3.2* 3.6 CL 98 95* 94* CO2 34* 35* 35* BUN 25* 32* 36* CREATININE 1.53* 1.65* 1.55* Recent Labs 04/08/25 1654 04/08/25205204/09/2540804/10/253 04/11/25 0501 WBC -- -- 11.2* 12.4* [...] CNP Date Of Service 04/11/2025 [1] [facility] Department Progress Note Comment or [...] original note were not included. PHYSICAL THERAPY [facility] Treatment Note Name/MRN: Mary Charles ([id number]) Date of : 1935 Age: 89 y.o. Room/Bed: 222/ A Visit #: 2 out of 5 Discharge Recommendation: Snf Facility Equipment Needed: No Assessment Pt making [...] Raw Score (No Stairs) : 14 JH-HLM -HLM Score: Static standing (1 or [...] original note were not included. OCCUPATIONAL THERAPY [facility] Initial Evaluation Name/MRN: Mary Charles ([id number]) Evaluation Date: 04/10/2025 Date of : 1935 Admission Date: 04/05/2025 3:55 PM Age: 89 y.o. Room/Bed: 222-04/222-04 A Discharge Recommendation: Snf Facility Equipment Needed: No Assessment IMPRESSION: Pt [...] Needs Assist Receives Help From: Family Active Patrol Community Service Officer: No Prior Level of Function Prior Level [...] of Care supervision is transferred to a [facility] Therapy Services Occupational Therapist. Goals and/or treatment [...] [2] History reviewed. No pertinent surgical history. [facility] [place] [facility] Cardiology /Electrophysiology Progress Note HPI / Interval History: Mary Charles has no prior cardiac history (has not seen a physician for many years) who presented to [facility] with worsening SOB, hypoxia and edema. [...] Position: Pulse: 70 76 102 Resp: 15 Temp: 37.4 C (99.4 F) TempSrc: Axillary [...] remote tobacco abuse who was admitted to [facility] 04/05/25 with shortness of breath and [...] Normal [] Scar/Lesion/Mass Inspection of teeth/lips/gums: Dentition: [x][place] Teeth []Dentures Lips/Gums [x]Intact []Lesion Present Oropharynx exam: Mucosa [x][place] []Moist []Dry Neck: External Appearance: Overall Appearance:[x]Normal [...] within last 24 hours- BMP: Recent Labs 04/08/251604/09/2540804/10/25442 NA 142 142 142 K 3.4* 3.5 3.2* CL 99 98 95* CO2 33* 34* 35* BUN 26* 25* 32* CREATININE 1.78* 1.53* 1.65* CALCIUM 7.9* 8.1* 8.0* MG 1.6 1.7 1.7 PHOS -- 3.5 2.6 LFTS: Recent Labs 04/08/251604/09/25 04004/09/25 1019 04/10/25442 AST 21 18 -- 16 ALT <6 <6 -- <6 PROT 5.8* 5.7* 5.9* 5.5* BILITOT 0.6 0.7 -- 0.6 ALKPHOS 57 56 -- 50 Glucose: Recent Labs 04/08/251604/08/25 1631 04/09/2540804/10/25442 GLUCOSE 99 -- 90 98 POCGLU -- 100 -- -- Procal: No results for input(s): PROCAL in the last 72 hours. CBC: Recent Labs 04/08/251604/08/25165304/08/25205204/09/2540804/10/25442 WBC 13.0* -- -- 11.2* 12.4* HGB 7.2* < > 8.4* 7.5* 7.2* HCT 25.9* -- -- 27.7* 26.1* PLT 314 -- -- 279 294 MCV 80.2 -- -- 83.4 82.1 RDW 21.1* -- -- 21.8* 22.9* < > = values in this interval not displayed. ABGs: Recent Labs 04/08/25165304/08/252052 PHART 7.296* 7.332* MHX9TCG 80.1* 75.1* PO2ART 92.0 104.0 UBV9GIC 38.2* 38.9* [id number] 96.1* 97.0 Lactic Acid: No lab exists [...] can use the urinal, no indication for ALUMINA PLANT SUPERVISOR at this time (would be a poor [...] Code Status: Full Code Disposition: Transfer to [facility] with telemetry Critical care time spent reviewing labs/films, examining patient, collaborating with other physicians but excluding procedures for life threatening organ failure is 35 minutes. Precious Lewis MD Pulmonary & Critical Care Medicine [facility] Pager #[phone] [1] atorvastatin, 20 mg, Oral, Nightly carvedilol, 3.125 mg, Oral, BID WC furosemide, 40 mg, IntraVENous, BID hydrALAZINE, 25 mg, Oral, TID mupirocin, 1 Application, Nasal, BID pantoprazole, 40 mg, Oral, qAM AC polyethylene glycol (PEG) 3350, 17 g, Oral, Daily senna-docusate sodium, 2 tablet, Oral, BID [Held by provider] torsemide, 20 mg, Oral, Daily [2] [facility] Cardiology /Electrophysiology Progress Note HPI / Interval History: Mary Charles has no prior cardiac history (has not seen a physician for many years) who presented to [facility] with worsening SOB, hypoxia and edema. [...] Does appear tired. Family at bedside (brother, [id number], daughter). No significant complaints today. Assessment/Plan HF [...] found for: TROPDELTSEC Recent Labs 04/07/25 0314 04/08/257 04/09/25 0409 NA 143 142 142 K [...] original note were not included. PHYSICAL THERAPY [facility] Treatment Note Name/MRN: Mary Charles ([id number]) Date of : 1935 Age: 89 y.o. Room/Bed: 222-04/222-04 A Visit #: 1 out of 5 Discharge Recommendation: Snf Facility Equipment Needed: No Assessment Pt demos [...] x1) Lucrecia Cabral PT Spiritual Care Note [facility] Palliative Care Patient Name:Mary Charles Chief Complaint: [...] of grief. He spoke about moving from [place] to [place] as a young man. We did some life review. No follow up. Is there spiritual distress? YES Comment: Grief Interventions: spiritual support provided, emotional support provided, empathetic listening, and validated feelings. Care Plan: No care plan. Follow Up: No follow up. Debriefed: with electrical prospecting supervisor team. Carmelita Chairez 04/09/25 Images from the [...] care of himself. -Consider medication for mood? -Hard Candy Spinner support requested. -Monitor. Hx CKD III -CrCl [...] other systems were reviewed and are negative. [place] Symptom Assessment Score [place] Score Pain Score (if non-verbal, add .FLACC [...] original note were not included. OCCUPATIONAL THERAPY [facility] ED's Name/MRN: Mary Charles ([id number]) Date: 04/09/2025 OT order received, chart review [...] remote tobacco abuse who was admitted to [facility] 04/05/25 with shortness of breath and [...] Normal [] Scar/Lesion/Mass Inspection of teeth/lips/gums: Dentition: [x][place] Teeth []Dentures Lips/Gums [x]Intact []Lesion Present Oropharynx exam: Mucosa [x][place] []Moist []Dry Neck: External Appearance: Overall Appearance:[x]Normal [...] PHOS -- -- 3.5 LFTS: Recent Labs 04/07/2531304/08/251604/09/25 0409 AST 23 21 18 ALT <6 <6 <6 PROT 5.7* 5.8* 5.7* BILITOT 0.7 0.6 0.7 ALKPHOS 57 57 56 Glucose: Recent Labs 04/07/2531304/08/251604/08/25 1631 04/09/25 0409 GLUCOSE 88 99 -- 90 POCGLU -- -- 100 -- Procal: No results for input(s): PROCAL in the last 72 hours. CBC: Recent Labs 04/07/2531304/08/251604/08/25165304/08/25205204/09/25408 WBC 11.5* 13.0* -- -- 11.2* HGB 7.4* 7.2* 8.6* 8.4* 7.5* HCT 27.2* 25.9* -- -- 27.7* PLT 346 314 -- -- 279 MCV 80.0 80.2 -- -- 83.4 RDW 20.5* 21.1* -- -- 21.8* ABGs: Recent Labs 04/08/25165304/08/252052 PHART 7.296* 7.332* [id number] 80.1* 75.1* PO2ART 92.0 104.0 DVT9INA 38.2* 38.9* [id number] 96.1* 97.0 Lactic Acid: No lab exists [...] urology evaluation, strict I/O's, no indication for ALUMINA PLANT SUPERVISOR at this time (would be a poor [...] MD Pulmonary & Critical Care Medicine [facility] Pager #[phone] [1] atorvastatin, 20 mg, Oral, Nightly carvedilol, [...] critical care time excluding procedures D/w Yamilka, ALUMINA PLANT SUPERVISOR, Rosangela, RN and family at bedside. Images from the original note were not included. OCCUPATIONAL THERAPY [facility] ED's Name/MRN: Mary Charles ([id number]) Date: 04/08/2025 Therapy eval and treat orders [...] if needed. Opt gi follow up with [facility] Hospitalist Progress Note 04/08/2025 [phone]: Please secure chat me for patient care issues. [phone]: Please secure chat [facility] Hospitalist for any issues. Subjective: Admit Date: [...] dose of lorazepam.... Adult diet Clear liquid @[id number]@ 24HR INTAKE/OUTPUT: Intake/Output Summary (Last 24 hours) [...] PLT 344 346 314 BMP: Recent Labs 04/06/2533304/07/2531304/08/2516 NA 143 143 142 K 4.2 3.6 [...] Date -April 11 or - Location -possible senior living facility - Pending the following -clinical improvement, GI workup and PT and OT assessments Total time spent (which include face to face and non face to face encounters) : 53 minutes Toxic drug monitoring/narrow therapeutic index drug monitoring : # Drug name : # Route administered : # Method of monitoring : Extended Emergency Contact Information Primary Emergency Contact: ANAYH CHARLES Mobile Relation: Daughter Preferred language: Swiss Laborer Tin Can needed? No Westley Martinez MD Division of Hospitalist Medicine [facility] PAGER: Ese byrne [1] History reviewed. No pertinent past medical history. [2] [3] atorvastatin, 20 mg, Oral, Nightly carvedilol, 3.125 mg, Oral, BID WC [Held by provider] furosemide, 40 mg, IntraVENous, BID hydrALAZINE, 25 mg, Oral, TID iron sucrose, 200 mg, IntraVENous, q24h pantoprazole, 40 mg, Oral, qAM AC [facility] Cardiology /Electrophysiology Progress Note HPI / Interval History: Mary Charles has no prior cardiac history (has not seen a physician for many years) who presented to [facility] with worsening SOB, hypoxia and edema. [...] Labs 04/05/25 1617 04/06/25 0334 04/07/25 0314 04/08/25 0017 NA 140 143 143 142 K 4.5 4.2 3.6 3.4* CL 105 104 98 99 CO2 27 26 31 33* BUN 24* 24* 26* 26* CREATININE 1.46* 1.44* 1.63* 1.78* Recent Labs 04/05/25 1617 04/06/25 0334 04/07/25 0314 04/08/25 0017 WBC 10.0 10.3 11.5* 13.0* [...] 22 (A) 55 - 100 % Final Alejandro Queen, SMALL BOAT ENGINEER - ANCILLARY SPECIALIST Date Of Service 04/08/2025 [1] The Gastroenterology [...] the patient. CBC: Recent Labs 04/05/25 1617 04/06/2533304/07/25313 WBC 10.0 10.3 11.5* HGB 5.5* 7.6* 7.4* HCT 20.7* 27.2* 27.2* PLT 358 344 346 HEPATIC: Recent Labs 04/06/2533304/07/25313 AST 25 23 ALT 6 <6 BILITOT 1.7* 0.7 ALKPHOS 63 57 LIPASE/AMYLASE: No results for input(s): AMYLASE, LIPASE in the last 72 hours. LACTATE: No lab exists for component: LACTA BNP: Recent Labs 04/05/251616 BNP 8,438* INR: No results for input(s): INR in the last 72 hours. ASSESSMENT AND PLAN 1. Microcytic anemia - hbg stable. Plans for c/e saturday 2. Abnormal CT - TI and cecal changes, possibly post infectious, r/o colitis/neoplasia. See above 3. Dysphagia - resolved Spiritual Care Note [facility] Palliative Care Patient Name:Mary Charles Chief Complaint: Chief Complaint Patient presents with Leg Swelling Shortness of Breath Pt arrived to triage for shortness of breath and swelling legs. Pt endorses increased work of breath, weakness, confusion and no appetite. Reason for visit: Hard Candy Spinner Consult Services Provided To:patient and family Background and visit note: Patient was electrical prospecting supervisor consult. Introduced myself and pastoral care to [...] and when patient is able. Debriefed: with electrical prospecting supervisor team. Carmelita Chairez 04/07/25 Images from the original note were not included. PHYSICAL THERAPY [facility] Initial Evaluation Name/MRN: Mary Charles ([id number]) Evaluation Date: 04/07/2025 Date of : 1935 Admission Date: 04/05/2025 3:55 PM Age: 89 y.o. Room[facility]Bed: [facility] A Discharge Recommendation: Snf Facility Equipment Needed: No Assessment IMPRESSION: Pt [...] Needs Assist Receives Help From: Family Active Patrol Community Service Officer: No Prior Level of Function Prior Level [...] Raw Score (No Stairs) : 11 JH-HLM -HL Score: Static standing (1 or more minutes) [...] Time In 1031 Time Out 1048 Minutes RADHA Durant Patient's Physical Therapy Plan of Care supervision is transferred to a [facility] Physical Therapist. Goals and/or treatment plan was established in collaboration with patient/family/other representatives. [1] History reviewed. No pertinent past medical history. [2] History reviewed. No pertinent surgical history. Cosigned by Lucrecia Cabral PT at 04/07/2025 4:00 PM EDT Hospitalist Progress Note 04/07/20256998939-2125: Please secure chat me for patient care issues. [phone]: Please secure chat [facility] night Hospitalist for any issues. Subjective: Admit [...] diet Regular; No Added Salt (3-4 gm) @[id number]@ 24HR INTAKE/OUTPUT: Intake/Output Summary (Last 24 hours) at 04/07/2025 1133 Last data filed at 04/06/2025 2241 Gross per 24 hour Intake 210 ml Output 1720 ml Net -1510 ml Past Medical History: Medical History[1] LABS: CBC: Recent Labs 04/05/25 1617 04/06/25 0334 04/07/25313 WBC 10.0 10.3 11.5* RBC 2.83* 3.46* 3.40* HGB 5.5* 7.6* 7.4* HCT 20.7* 27.2* 27.2* MCV 73.1* 78.6 80.0 RDW 19.9* 20.5* 20.5* PLT 358 344 346 BMP: Recent Labs 04/05/25 1617 04/06/25 0334 04/07/25 0314 NA 140 143 143 K 4.5 4.2 3.6 CL 105 104 98 CO2 27 26 31 BUN 24* 24* 26* CREATININE 1.46* 1.44* 1.63* GLUCOSE 108 98 88 CALCIUM 8.4* 8.2* 7.9* ANIONGAP 8 13 14* LIVER PROFILE: Recent Labs 04/05/25 1617 04/06/25 0334 04/07/25 0314 AST 22 25 23 ALT 7 6 [...] Date -April 11 or - Location -possible senior living facility - Pending the following -clinical improvement, [...] ANAHY CHARLES Mobile Relation: Daughter Preferred language: Swiss Laborer Tin Can needed? No Westley Martinez MD Division of Hospitalist Medicine [employer] care [employer] PAGER: Epic chat [1] History reviewed. No pertinent past medical history. [2] [3] atorvastatin, 20 mg, Oral, Nightly carvedilol, 3.125 mg, Oral, BID WC furosemide, 40 mg, IntraVENous, BID hydrALAZINE, 25 mg, Oral, TID iron sucrose, 200 mg, IntraVENous, q24h pantoprazole, 40 mg, Oral, qAM AC [facility] [place] [facility] Cardiology /Electrophysiology Progress Note HPI / Interval History: Mary Charles has no prior cardiac history (has not seen a physician for many years) who presented to [facility] with worsening SOB, hypoxia and edema. [...] Infusion Medications: Continuous Meds[1] Physical Examination: Vitals: 04/06/25 2029 04/06/25 2304 04/07/25 0321 04/07/25 0754 BP: 117/61 [...] 80.0 PLT 358 344 346 Recent Labs 04/05/251616 BNP 8,438* Recent Labs [...] assess Fluid Accumulation: Moderate to Severe Extremities Care Team Coordinator Scheduler Strength: Not Performed Nutrition Assessment: 89 y.o. [...] anemia and frailty. Conservative, medical management. nursing coordinator in room. Pt sleeping /snoring -name called numerous times pt did not wake -left undisturbed at this time. Estimated Daily Nutrient Needs: Energy Requirements Based On: Kcal/kg Weight Used for Energy Requirements: [place] Weight for Energy Calculation (kg): 70 kg Total Energy Requirements (kcals/day): 7193-9699 (25-30) Weight Used for Protein Requirements: [place] Weight in Kg Used for Protein Requirements: [...] lb) Usual Body Weight: (unable to obtain) [place] Body Weight (lbs) (Calculated): 154 lbs [place] Body Weight (Kg) (Calculated): 70 kg % [place] Body Weight (Calculated): 129.9 % BMI (kg/m2) [...] soon to determine Kristin Duffy RD Contact: *[phone] or via Secure Chat [1] atorvastatin, 20 mg, Oral, Nightly carvedilol, 3.125 mg, Oral, BID WC furosemide, 40 mg, IntraVENous, BID hydrALAZINE, 25 mg, Oral, TID iron sucrose, 200 mg, IntraVENous, q24h pantoprazole, 40 mg, Oral, qAM AC [2] Hospitalist Progress Note 04/06/2025 [phone]: Please secure chat me for patient care issues. [phone]: Please secure chat [facility] night Hospitalist for any issues. Subjective: Admit Date: 04/05/2025 PCP: No primary care provider on file. Room#: B2254/B2-422 A Brief History: Patient is a 89-year-old [...] ferritin, IV Venofer added Adult diet Regular @[id number]@ 24HR INTAKE/OUTPUT: Intake/Output Summary (Last 24 hours) at 04/06/2025 1352 Last data filed at 04/06/2025 1000 Gross per 24 hour Intake 1339.33 ml Output 800 ml Net 539.33 ml Past Medical History: Medical History[1] LABS: CBC: Recent Labs 04/05/25161604/06/25 0334 WBC 10.0 10.3 RBC 2.83* 3.46* HGB 5.5* 7.6* HCT 20.7* 27.2* MCV 73.1* 78.6 RDW 19.9* 20.5* PLT 358 344 BMP: Recent Labs 04/05/25161604/06/25 0334 NA 140 143 K 4.5 4.2 CL 105 104 CO2 27 26 BUN 24* 24* CREATININE 1.46* 1.44* GLUCOSE 108 98 CALCIUM 8.4* 8.2* ANIONGAP 8 13 LIVER PROFILE: Recent Labs 04/05/25161604/06/25 0334 AST 22 25 ALT 7 6 [...] ANAHY CHARLES Mobile Relation: Daughter Preferred language: Swiss Laborer Tin Can needed? No Westley Martinez MD Division of Hospitalist Medicine Acute care [employer] PAGER: Epic chat [1] History reviewed. No pertinent past medical history. [2] [3] atorvastatin, 20 mg, Oral, Nightly carvedilol, 3.125 mg, Oral, BID WC furosemide, 40 mg, IntraVENous, BID hydrALAZINE, 25 mg, Oral, TID iron sucrose, 200 mg, IntraVENous, q24h pantoprazole, 40 mg, Oral, qAM AC documented in this encounter [facility] 04-14-2025 Note IR US Thoracentesis 650 ml of hines yellow fluid removed. Vaseline guaze dressing applied. Patient tolerated procedure well. Patient returned to IN patient room. [facility] 04-14-2025 Consult note Associated Order (s): IP CONSULT TO PALLIATIVE CARE Consult acknowledged. Patient previously seen by palliative care. Signed off on 04-12. Patient has had worsening status in last couple days, worsening pleural effusion. Spoke with pulmonology SPINDLE REPAIRER, Yesi today. Consult placed. Will see tomorrow s/p thoracentesis. Signed, Bela Agustin APRN, CNP, [facility] Palliative Care/Hospice PGR [phone] Cosigned by Diana Marsh MD at 04/14/2025 1:38 PM EDT Images from the original note were not included. [facility], Pulmonary Medicine [address] [place] [address] Patient - Mary Charles - 1935 Date of Admission - 04/05/2025 [...] ml Output 650 ml Net -410 ml @[id number]@ Physical Exam Physical Exam Vitals and nursing [...] Results from last 7 days Lab Units 04/12/25 0325 WBC AUTO 10*3/uL 12.0* HEMOGLOBIN g/dL 7.4* HEMATOCRIT % 26.8* PLATELETS 10*3/uL 272 BMP: Results from last 7 days Lab Units 04/12/25 0325 04/11/25 0501 04/10/25 0443 SODIUM mmol/L 139 139 142 POTASSIUM mmol/L 3.7 3.6 3.2* CHLORIDE mmol/L 95* 94* 95* CO2 mmol/L 37* 35* 35* BUN mg/dL 40* 36* 32* CREATININE mg/dL 1.53* 1.55* 1.65* GLUCOSE mg/dL 103 103 98 CALCIUM mg/dL 7.9* 8.1* 8.0* ABG: Results from last 7 days Lab Units 04/08/25 2053 04/08/25 1654 PH ART 7.332* 7.296* PCO2 ART mm Hg 75.1* 80.1* PO2 ART mm Hg 104.0 92.0 HCO3 ART mmol/L 38.9* 38.2* O2 SAT ART % 97.0 96.1* BASE EXC ART mmol/L 11.2* 9.9* SOURCE OF OXYGEN Non-Invasive Ventilator Nasal Cannula (LPM) LIVER PROFILE Results from last 7 days Lab Units 04/12/25 0325 04/11/25 0501 04/10/25 0443 04/06/25 0334 04/05/25 1617 ALK PHOS [...] Pulmonary function tests (PFT's) No PFT's in [facility] Sleep History No sleep study available in [facility] Radiology CXR 04/11/25: IMPRESSION: Cardiomegaly with [...] deltoids) Fluid Accumulation: Moderate to Severe Extremities Care Team Coordinator 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 [...] On: Kcal/kg Weight Used for Energy Requirements: [place] Weight for Energy Calculation (kg): 70 kg Total Energy Requirements (kcals/day): 5777-2284 (25-30) Weight Used for Protein Requirements: [place] Weight in Kg Used for Protein Requirements: [...] Body Weight: (none on file to review) [place] Body Weight (lbs) (Calculated): 154 lbs [place] Body Weight (Kg) (Calculated): 70 kg % [place] Body Weight (Calculated): 136.1 % BMI (kg/m2) [...] to determine Darleen Stubbs RDN, LDN, Contact: *[phone] Associated Order(s): INPATIENT CONSULT TO CRITICAL CARE - MEDICAL TEAM Internal Medicine: MICU Initial Consult Name: Mary Charles : 1935(89 y.o.) Date: 04/08/25 Attending: Precious Lewis MD Subjective: Chief Complaint: shortness of breath HPI: Patient is a pleasant 89 year-old male with a history of chronic HFrEF and prior remote tobacco abuse who was admitted to [facility] 04/05/25 with shortness of breath and [...] Normal [] Scar/Lesion/Mass Inspection of teeth/lips/gums Dentition: [x][place] Teeth []Dentures Lips/Gums: [x]Intact []Lesion Present Mucosa: [x][place] []Moist []Dry Neck: External Appearance Overall Appearance: [...] ALKPHOS 63 57 57 Glucose: Recent Labs 04/06/2533304/07/2531304/08/25 0017 04/08/25 1631 GLUCOSE 98 88 99 -- POCGLU -- -- -- 100 Procal: No results for input(s): PROCAL in the last 72 hours. 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 male with chief [...] care of himself. -Consider medication for mood? -Hard Candy Spinner support requested. -Monitor. Hx CKD III -CrCl [...] detailed in the note above. Bela Agustin, SMALL BOAT ENGINEER - ANCILLARY SPECIALIST Palliative Care Assessments: Goals of care: Continue [...] fully addressed Living status: alone Work history: Snow status: No Lutheran: No roman catholic on file ROS: See palliative care ROS/ESAS below; All other systems were reviewed and are negative. [place] Symptom Assessment Score [place] Score Pain Score (if non-verbal, add .FLACC [...] at this time Transition Note Initiated: yes LOURDES Ordaz CNP [1] History reviewed. No pertinent past medical [...] 2024, has a son who lives in [place] and daughter that lives close by Retired from working at [employer] for 43 years No tobacco use Denies [...] Neurologic: Grossly intact LABS: CBC: Recent Labs 04/05/25161604/06/25 0334 WBC 10.0 10.3 RBC 2.83* 3.46* HGB 5.5* 7.6* HCT 20.7* 27.2* MCV 73.1* 78.6 RDW 19.9* 20.5* PLT 358 344 BMP: Recent Labs 04/05/25161604/06/25 0334 NA 140 143 K 4.5 4.2 CL 105 104 CO2 27 26 BUN 24* 24* CREATININE 1.46* 1.44* GLUCOSE 108 98 CALCIUM 8.4* 8.2* ANIONGAP 8 13 LIVER PROFILE: Recent Labs 04/05/25161604/06/25 0334 AST 22 25 ALT 7 6 [...] mg 650 mg Oral q6h PRN Albar[place] Clara, MD Or acetaminophen (Tylenol) suppository 650 mg [...] Associated Order(s): IP CONSULT TO CARDIOLOGY [facility] [place] [facility] Consult Note Reason for Consult/Chief Complaint: [...] daily Consider palliative approach Cari Scherer MD, [facility], [facility] DATE of SERVICE: 04/06/2025 [1] History reviewed. No pertinent past medical history. [2] History reviewed. No pertinent surgical history. [3] No family history on file. [4] [5] furosemide, 40 mg, IntraVENous, BID iron sucrose, 200 mg, IntraVENous, q24h pantoprazole, 40 mg, Oral, qAM AC documented in this encounter [facility] 04-13-2025 Hospital Discharg e instructions LOURDES Cervantes CNP - 04/13/2025 12:17 PM EDT Please call [place] at [phone] to arrange for home NIV once stable [...] ANAHY CHARLES Mobile Relation: Daughter Preferred language: Swiss Laborer Tin Can needed? No Past Surgical History: History reviewed. 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 Information placed for [facility]. If stable clinically , follow up in 1-2 month for possible EGD, colonoscopy The individual is being admitted to a nursing facility directly from an [facility] or a unit of a [place] [facility] that is not operated by or licensed by [facility] under section 5119.14 or 5160-3-15.1 5 The individual requires the level of services provided by a nursing facility for the condition for which he or she was treated in the hospital and, Physician Certification: I certify the above information and transfer of Mary Charles is necessary for the continuing treatment of the diagnosis listed and that he requires senior living facility for less than 30 days. Update Admission H&P: No change in H&P PHYSICIAN SIGNATURE: documented in this encounter [facility] 04-09-2025 Note [facility] 04-09-2025 Procedure note Associated Ord er(s): Thoracentesis [...] procedure note documented in this encounter [facility] 04-09-2025 Note [facility] 04-05-2025 Note [facility] 04-05-2025 History and physical note Attending [...] No Known Allergies documented in this encounter [facility] Evaluation note Diagnosis Acute congestive heart failure, unspecified heart failure type (HCC)- Primary Acute congestive heart failure, unspecified heart failure type (HCC) Anemia, unspecified type Shortness of breath Hypoxia Hypoxemia CHF (congestive heart failure), NYHA class I, acute on chronic, combined (HCC) documented in this encounter [facility]* Diagnosis Acute congestive heart failure, unspecified heart failure type (HCC)- Primary documented in this encounter [facility]* Diagnosis Chronic systolic heart failure (HCC)- Primary Chronic systolic heart failure 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 Pleural effusion Unspecified pleural effusion Acute kidney injury superimposed on chronic kidney disease (HCC) (HCC) 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 chronic kidney disease (HCC) PAC (premature atrial contraction) Supraventricular premature beats Abnormal CAT scan Other nonspecific (abnormal) findings on radiological and other examinations of body structure documented in this encounter [facility]* Diagnosis Chronic systolic heart failure (HCC)- Primary Chronic systolic heart failure 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 Pleural effusion Unspecified [...] Debility Unspecified debility documented in this encounter [facility]* Diagnosis Chronic systolic heart failure (HCC)- Primary Chronic systolic heart failure 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 Pleural effusion Unspecified pleural effusion Acute kidney injury superimposed on chronic kidney disease 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 chronic kidney disease (CMS/HCC) PAC (premature atrial contraction) Supraventricular premature beats Abnormal CAT scan Other nonspecific (abnormal) findings on radiological and other examinations of body structure Chronic systolic heart failure (HCC)- Primary Chronic systolic heart failure [facility] Diagnosis Chronic systolic heart failure (HCC)- Primary Chronic systolic heart failure 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 Pleural effusion Unspecified pleural effusion Acute kidney injury superimposed on chronic kidney disease 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 chronic kidney disease (CMS/HCC) PAC (premature atrial contraction) Supraventricular premature beats Abnormal CAT scan Other nonspecific (abnormal) findings on radiological and other examinations of body structure Anemia due to chronic kidney disease, unspecified CKD stage- Primary documented in this encounter [facility] Chief Complaint and Reason for Visit Chief Complaint MODERNA VACCINE Assessments No Assessments Information Available Advance Directives No Advanced Directives Records Found Date Activated Date Inactivated Comments 04/05/2025 8:50 [...] appetite. Specialty Diagnoses / Procedures Referred By Contac t Referred To Contact Diagnoses Shortness of breath Hypoxia CHF (congestive heart failure), NYHA class I, acute on chronic, combined (HCC) Anemia, unspecified type Acute congestive heart failure, unspecified heart failure type (HCC) Procedures .. Clara, MD [facility] [address] [place] [address] Phone: tel: fax: [facility] Cardiac Progressive Care Unit [address]U [address] [place] [address] Phone: tel: Referral ID Status Reason Start Date Expiration Date Visits Re quested Visits Authorized [id number] 1 1 Reason Comments Hospital Follow-up Congestive Heart Failure Reason Comments Follow-up 6 Week Reason Comments Other Patient here followi ng bloodwork showing low hemoglobin Reason Onset Date Comments Release of Information 06/24/2025 GIANA, ferny olmedo, and medication notes Scheduled Active and Recently Administ ered Medications (unrecognized section and content) Medication Order 04/15/2025 04/16/2025 04/17/2025 atorvastatin (Lipitor) tablet 20 mg 20 mg, Oral, Nightly, First dose on Sat04/06/25 at 2100 2023 (Given - Provider: Jose Tinoco, RN) 2105 (Given - Provider: Lynne Calzada, RN) furosemide (Lasix) injection 80 mg (CANCELED) 80 mg, IntraVENous, 2 times daily, First dose on Sat04/14/25 at 1230, Hold if systolic blood pressure less than 90 or diastolic blood pressure less than 60, heart rate less than 60 09 (Given - Provider: Kourtney Jordan, LUCIA)2023 (Given - Provider: Jose Tinoco, LUCIA) hydrALAZINE (Apresoline) tablet 10 mg 10 mg, Oral, 3 times daily, First dose (after last modification) on Ellen 04/15/25 at 0900, Hold for systolic less than 110, On hold since 04/17/2025 at 0739 until manually unheld 09 (Not Given - Provider: Kourtney Jordan RN - Reason: Order parameters not met)1533 (Not Given - Provider: Kourtney Jordan RN - Reason: Order parameters not met)2000 (Not Given - Provider: Jose Tinoco RN - Reason: Order parameters not met - Comment: BP 95/58) 0836 (Given - Provider: Danielle Fu, RN)1402 (Not Given - Provider: Danielle Fu RN - Reason: Order parameters not met)2104 (Not Given - Provider: Lynne Calzada RN - Reason: Other - Comment: low BP) 0739 (Held by provider - Provider: Albaro Hernández MD - Reason: Other)0900 (Dose Auto Held - Provider: Albaro Hernández MD)1551 (Unheld by provider - Provider: Automatic Discharge Provider) metoprolol succinate XL (Toprol-XL) 24 hr tablet 25 mg 25 mg, Oral, Daily, First dose on Sat04/10/25 at 0900, Do not crush or chew. 0914 (Given - Provider: Kourtney Jordan RN) 0836 (Given - Provider: Danielle Fu RN) 0854 (Given - Provider: China Vogel, LUCIA) pantoprazole (ProtoNix) EC tablet 40 mg 40 mg, Oral, Daily before breakfast, First dose on Sat04/06/25 at 0600, Do not crush, chew, or split. 0606 (Given - Provider: Ana María Grace RN) 0503 (Given - Provider: Jose Tinoco RN) 0626 (Given - Provider: Lynne Calzada RN) senna-docusate sodium (Senokot-S) 8.6-50 MG tablet 2 tablet 2 tablet, Oral, 2 times daily, First dose on Sat04/10/25 at 0630 0606 (Not Given - Provider: [...] at 0900 0835 (Given - Provider: Danielle Fu RN) 0854 (Given - Provider: China Vogel, LUCIA) [...] sedation for opioid reversal - MUST notify substation operator transforming provider immediately after first dose, may give [...] Starting on Sat04/05/25 at 2050, 1st Line. If inadequate response within 60 [...] line post transfusion, Starting on Sat06/21/25 at 2019, For 1 dose, For use in priming line prior to transfusion (prime via gravity) and flush line post transfusion ONLY. Discontinue once line has been cleared of remaining blood product. Care Teams (unrecognized sec tion and content) Biochemical Engineer Relationship Specialty Start Date End Date Aliya Tadeo, washery engineerHypercil Core Transformer Assembler Manager 04/09/25 Biochemical Engineer Relationship Specialty Start Date End Date Aliya Tadeo washery engineerHypercil Core Transformer Assembler Manager 04/09/25 Biochemical Engineer Relationship Specialty Start Date End Date Aliya Tadeo RN Registered Nurse [employer] Transformer Assembler Manager 04/09/25 Biochemical Engineer Relationship Specialty Start Date End Date Aliya Tadeo RN Registered Nurse [employer] Transformer Assembler Manager 04/09/25 Biochemical Engineer Relationship Specialty Start Date End Date Aliya Tadeo RN Registered Nurse [employer] Transformer Assembler Manager 04/09/25 Biochemical Engineer Relationship Specialty Start Date End Date Aliya Tadeo RN Registered Nurse [employer] Transformer Assembler Manager 04/09/25 (unrecognized sect ion and content) No Status Records FoundNo Status Records Found INFORMATION SOURCE (unrecogn ized section and content) DATE CREATED AUTHOR 06/28/2025 [facility] DATE CREATED AUTHOR AUTHOR'S ORGANIZ ATION 07/02/2025 [facility] FOR RECORDS PERTAINING TO PATIENTS WHO [...] BE BASED ON THE PRIMARY CLINICAL RECORDS. [employer] [facility]. provides no warranty or guarantee of the accuracy or completeness of information in this document.
[2025-07-05 09:07] LABS: Hematocrit 23.2 % (40-54); Hemoglobin 7.1 g/dL (13.0-16.5); Mean Corp Hgb Conc 30.6 g/dL (32-36); Mean Corpuscular Volume 94.3 fL (80-94); Mean Platelet Vol. 8.8 fl (6.2-12.0); Platelet Count 507 K/mm3 (150-450); RBC Distribution Width CV 14.8 % (11.6-14.6); RBC Distribution Width SD 49.7 fl (35.1-43.9); Red Blood Count 2.46 M/mm3 (4.6-6.2); White Blood Count 12.0 K/mm3 (4.4-11.0)
[2025-07-05 09:14] LABS: Anion Gap 10 (5-15); BUN 40 mg/dL (4-19); BUN/Creat Ratio 20.8 RATIO (10-20); Calcium,Total 8.5 mg/dL (7.6-11.0); Carbon Dioxide 28.6 mmol/L (21.0-32.0); Chloride 101 mmol/L (98-108); Glucose 92 mg/dL (70-99); Potassium 3.7 mmol/L (3.3-5.1)
== END ==
LOC: OLS.ACH2 04:00
PROVIDERS: PCP Internal Medicine; Referring Provider Internal Medicine; Visit Provider Internal Medicine
DX: D63.1 Anemia in chronic kidney disease (principal); N18.30 Chronic kidney disease, stage 3 unspecified; K57.90 Diverticulosis of intestine, part unspecified, without perforation or abscess without bleeding
CPT/HCPCS: 36415; 80048; 85027

== ENCOUNTER → 2025-07-07 05:00 | Outpatient (REF) | payer MEDICARE, SELFPAY ==
--- OUTSIDE RECORDS SUMMARY | 2025-07-07 04:33 | XMS RPT_ITS | CCD ---
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 Name Role Phone Aliya Tadeo RN Unavailable Unavailable SAMAD, EBER Attending Unavailable SAGAR GILLIAM Attending Unavailable ASSPRECIOUS VALLADARES Consulting Unavailable ALBARO ELIZABETH Attending Unavailable CLARA, ALBARO Admitting Unavailable SAMAD, EBER Attending Unavailable ALEJANDRO QUEEN Attending Unavailable Ghourbrial, Negro Primary Care Unavailable Deperro OLS, Spencer Attending Unavailable Ghourbrial, Negro Primary Care Unavailable Deperro MAKENNA, Spencer Attending Unavailable Ghourbrial, [facility] Unavailable Deperro OLS, Spencer Attending Unavailable Ghourbrial, [facility] Primary Care Unavailable Deperro MAKENNA, Spencer Attending Unavailable Unavailable Unavailable Unavailable Medications Current [...] 04-17-2025 docusate sodium 50 mg / sennosides, senior living 8.6 mg oral tablet (12 sources) Start: [...] Start: 04-05-2025 End: 04-06-2025 polyethylene glycol 3350 99894 mg powder for oral solution (4 sources) [...] Coronary arteriosclerosis; Translations: [Atherosclerotic heart disease of [place] coronary artery without angina pectoris] Onset: 05-03-2025 [...] Test Name Value Interpretation Reference Range Facility Basic Metabolic Profile (BMP )on 07-05-2025 BUN/CRE 20.8 RATIO High 10-20 [facility] Comment on above: Order Comment: 542 Performed By: #### L 100.0500, L500.2500 #### [facility] [address] [place], [address] Calcium [Mass/Vol] 8.5 mg/dL Normal 7.6-11.0 [facility] Comment on above: Order Comment: 542 Performed By: #### L 100.0500, L500.2500 #### [facility] [address] [place], [address] Chloride [Moles/Vol] 101 mmol/L Normal 98-108 [facility] Comment on above: Order Comment: 542 Performed By: #### L 100.0500, L500.2500 #### [facility] [address] [place], [address] CO2 [Moles/Vol] 28.6 mmol/L Normal 21.0-32.0 [facility] Comment on above: Order Comment: 542 Performed By: #### L 100.0500, L500.2500 #### [facility] [address] [place], [address] Creatinine [Mass/Vol] 1.90 mg/dL High 0.70-1.20 [facility] Comment on above: Order Comment: 542 Performed By: #### L 100.0500, L500.2500 #### [facility] [address] [place], [address] GAP 10 Normal 5-15 [facility] Comment on above: Order Comment: 542 Performed By: #### L 100.0500, L500.2500 #### [facility] [address] [place], [address] GFR/1.73 sq M.predicted among non-blacks MDRD (S/P/Bld) [Vol rate/Area] 33 mL/min/{1.73_m2} Low >60 [facility] Comment on above: Order Comment: 542 Result Comment: mL/m in/1.73m2 CKD-EPI Creatinine Equation (2020) Performed By: #### L 100.0500, L500.2500 #### [facility] [address] [place], [address] Glucose [Mass/Vol] 92 mg/dL Normal 70-99 [facility] Comment on above: Order Comment: 542 Performed By: #### L 100.0500, L500.2500 #### [facility] [address] [place], [address] Potassium [Moles/Vol] 3.7 mmol/L Normal 3.3-5.1 [facility] Comment on above: Order Comment: 542 Performed By: #### L 100.0500, L500.2500 #### [facility] [address] [place], [address] Sodium [Moles/Vol] 140 mmol/L Normal 133-145 [facility] Comment on above: Order Comment: 542 Performed By: #### L 100.0500, L500.2500 #### [facility] [address] [place], [address] Urea nitrogen [Mass/Vol] 40 mg/dL High 4-19 [facility] Comment on above: Order Comment: 542 Performed By: #### L 100.0500, L500.2500 #### [facility] [address] [place], [address] CBC-Complete Blood Cnt No Di christal 07-05-2025 Erythrocyte distribution width (RBC) [Ratio] 14.8 % High 11.6-14.6 [facility] Comment on above: Order Comment: 542 Performed By: #### L 100.0500, L500.2500 #### [facility] [address] [place], [address] Hematocrit (Bld) [Volume fraction] 23.2 % Low 40-54 [facility] Comment on above: Order Comment: 542 Performed By: #### L 100.0500, L500.2500 #### [facility] [address] [place], [address] Hemoglobin (Bld) [Mass/Vol] 7.1 g/dL Low 13.0-16.5 [facility] Comment on above: Order Comment: 542 Performed By: #### L 100.0500, L500.2500 #### [facility] [address] [place], [address] MCH (RBC) [Entitic mass] 28.9 pg Normal 27.0-32.0 [facility] Comment on above: Order Comment: 542 Performed By: #### L 100.0500, L500.2500 #### [facility] [address] [place], [address] MCHC (RBC) [Mass/Vol] 30.6 g/dL Low 32-36 [facility] Comment on above: Order Comment: 542 Performed By: #### L 100.0500, L500.2500 #### [facility] [address] [place], [address] MCV (RBC) [Entitic vol] 94.3 fL High 80-94 [facility] Comment on above: Order Comment: 542 Performed By: #### L 100.0500, L500.2500 #### [facility] [address] [place], [address] Platelet mean volume (Bld) [Entitic vol] 8.8 fL Normal 6.2-12.0 [facility] Comment on above: Order Comment: 542 Performed By: #### L 100.0500, L500.2500 #### [facility] [address] [place], [address] Platelets (Bld) [#/Vol] 507 10*3/uL High 150-450 [facility] Comment on above: Order Comment: 542 Performed By: #### L 100.0500, L500.2500 #### [facility] [address] [place], [address] RBC (Bld) [#/Vol] 2.46 10*6/uL Low 4.6-6.2 [facility] Comment on above: Order Comment: 542 Performed By: #### L 100.0500, L500.2500 #### [facility] [address] [place], [address] RDW SD 49.7 fl High 35.1-43.9 [facility] Comment on above: Order Comment: 542 Performed By: #### L 100.0500, L500.2500 #### [facility] [address] [place], [address] WBC (Bld) [#/Vol] 12.0 10*3/uL High 4.4-11.0 [facility] Comment on above: Order Comment: 542 Performed By: #### L 100.0500, L500.2500 #### [facility] [address] [place], [address] Progress Noteon 06-30-2025 Progress Note Normal [facility] Basic Metabolic Profile (BMP )on 06-28-2025 BUN/CRE 23.4 RATIO High 06-28 [facility] Comment on above: Order Comment: 212.1 Performed By: #### L 500.2500 #### [facility] [address] [place], [address] Calcium [Mass/Vol] 8.4 mg/dL Normal 7.6-11.0 [facility] Comment on above: Order Comment: 212.1 Performed By: #### L 500.2500 #### [facility] [address] [place], [address] Chloride [Moles/Vol] 100 mmol/L Normal 98-108 [facility] Comment on above: Order Comment: 212.1 Performed By: #### L 500.2500 #### [facility] [address] [place], [address] CO2 [Moles/Vol] 27.4 mmol/L Normal 21.0-32.0 [facility] Comment on above: Order Comment: 212.1 Performed By: #### L 500.2500 #### [facility] [address] [place], [address] Creatinine [Mass/Vol] 1.72 mg/dL High 0.70-1.20 [facility] Comment on above: Order Comment: 212.1 Performed By: #### L 500.2500 #### [facility] [address] [place], [address] GAP 10 Normal 5-15 [facility] Comment on above: Order Comment: 212.1 Performed By: #### L 500.2500 #### [facility] [address] [place], [address] GFR/1.73 sq M.predicted among non-blacks MDRD (S/P/Bld) [Vol rate/Area] 38 mL/min/{1.73_m2} Low >60 [facility] Comment on above: Order Comment: 212.1 Result Comment: mL/m in/1.73m2 CKD-EPI Creatinine Equation (2020) Performed By: #### L 500.2500 #### [facility] [address] [place], [address] Glucose [Mass/Vol] 88 mg/dL Normal 70-99 [facility] Comment on above: Order Comment: 212.1 Performed By: #### L 500.2500 #### [facility] [address] [place], [address] Potassium [Moles/Vol] 3.9 mmol/L Normal 3.3-5.1 [facility] Comment on above: Order Comment: 212.1 Performed By: #### L 500.2500 #### [facility] [address] [place], [address] Sodium [Moles/Vol] 137 mmol/L Normal 133-145 [facility] Comment on above: Order Comment: 212.1 Performed By: #### L 500.2500 #### [facility] [address] [place], [address] Urea nitrogen [Mass/Vol] 40 mg/dL High 4-19 [facility] Comment on above: Order Comment: 212.1 Performed By: #### L 500.2500 #### [facility] [address] [place], [address] 36on 06-24-2025 36 [facility] 36 [facility] 36 06/24/25 BMP, blood pressure, pulse summary, and medication notes faxed from [facility]. Records scanned to Media. Normal [facility] Basic Metabolic Profile (BMP )on 06-24-2025 BUN/CRE 25.8 RATIO High 10-20 [facility] Comment on above: Order Comment: 212.1 Performed By: #### L 500.2500 #### [facility] [address] [place], [address] Calcium [Mass/Vol] 8.4 mg/dL Normal 7.6-11.0 [facility] Comment on above: Order Comment: 212.1 Performed By: #### L 500.2500 #### [facility] [address] [place], [address] Chloride [Moles/Vol] 97 mmol/L Low 98-108 [facility] Comment on above: Order Comment: 212.1 Performed By: #### L 500.2500 #### [facility] [address] [place], [address] CO2 [Moles/Vol] 26.9 mmol/L Normal 21.0-32.0 [facility] Comment on above: Order Comment: 212.1 Performed By: #### L 500.2500 #### [facility] [address] [place], [address] Creatinine [Mass/Vol] 1.80 mg/dL High 0.70-1.20 [facility] Comment on above: Order Comment: 212.1 Performed By: #### L 500.2500 #### [facility] [address] [place], [address] GAP 12 Normal 5-15 [facility] Comment on above: Order Comment: 212.1 Performed By: #### L 500.2500 #### [facility] [address] [place], [address] GFR/1.73 sq M.predicted among non-blacks MDRD (S/P/Bld) [Vol rate/Area] 36 mL/min/{1.73_m2} Low >60 [facility] Comment on above: Order Comment: 212.1 Result Comment: mL/m in/1.73m2 CKD-EPI Creatinine Equation (2020) Performed By: #### L 500.2500 #### [facility] [address] [place], [address] Glucose [Mass/Vol] 87 mg/dL Normal 70-99 [facility] Comment on above: Order Comment: 212.1 Performed By: #### L 500.2500 #### [facility] [address] [place], [address] Potassium [Moles/Vol] 3.8 mmol/L Normal 3.3-5.1 [facility] Comment on above: Order Comment: 212.1 Performed By: #### L 500.2500 #### [facility] [address] [place], [address] Sodium [Moles/Vol] 137 mmol/L Normal 133-145 [facility] Comment on above: Order Comment: 212.1 Performed By: #### L 500.2500 #### [facility] [address] [place], [address] Urea nitrogen [Mass/Vol] 47 mg/dL High 4-19 [facility] Comment on above: Order Comment: 212.1 Performed By: #### L 500.2500 #### [facility] [address] [place], [address] Progress Noteon 06-24-2025 Progress Note Attempted to meet with pt. He no longer resides here. Facility uncertain where he has moved to. Message left on primary contacts number Bereket to return call to the palliative group at [phone] Normal [facility] BASIC METABOLIC PANELon 10- Anion gap [Moles/Vol] 15 mmol/L High 3-13 [facility] Comment on above: Performed By: #### L AB15 ####Funeral Home Director: UNA ARCE ([id number])[facility]ENTER[facility] ESCOTO (SBHLAB)[address] Calcium [Mass/Vol] 8.4 mg/dL Low 8.8-10.0 [facility] Comment on above: Performed By: #### L AB15 ####Funeral Home Director: UNA ARCE ([id number])[facility] CENTERAngel BANNERLUIS (SBHLAB)[address] [place], [place] [address] [place] [address] Chloride [Moles/Vol] 97 mmol/L Low 98-107 [facility] Comment on above: Performed By: #### L AB15 ####Funeral Home Director: UNA ARCE ([id number])[facility]ENTERA [place] (SBHLAB)155 [place] [address] [place] CO2 [Moles/Vol] 25 mmol/L Normal 23-31 [facility] Comment on above: Performed By: #### L AB15 ####Funeral Home Director: UNA ARCE ([id number])[facility] (SBHLAB)[address] Creatinine [Mass/Vol] 1.97 mg/dL High 0.72-1.25 [facility] Comment on above: Performed By: #### L AB15 ####Funeral Home Director: UNA ARCE ([id number])[facility] (SBHLAB)[address] GLOMERULAR FILTRATION RATE ML/MIN/1.73 SQ M.PREDICTED 31.9 mL/min/1.73m*2 Low >60.0 [facility] Comment on above: Result Comment: Calc ulation based on the Chronic Kidney Disease Epidemiology Collaboration (CKD-EPI) equation refit without adjustment for race Performed By: #### L AB15 ####Funeral Home Director: UNA ARCE ([id number])[facility] (SBHLAB)[address] Glucose [Mass/Vol] 108 mg/dL Normal 82-115 [facility] Comment on above: Performed By: #### L AB15 ####Funeral Home Director: UNA ARCE ([id number])[facility] (SBHLAB)[address] Potassium [Moles/Vol] 4.1 mmol/L Normal 3.5-5.1 [facility] Comment on above: Result Comment: [facility] potassium values may be up to 0.5 mmol/L lower than serum values. Performed By: #### L AB15 ####Funeral Home Director: UNA ARCE ([id number])[facility] (SBHLAB)[address] Sodium [Moles/Vol] 137 mmol/L Normal 136-145 [facility] Comment on above: Performed By: #### L AB15 ####Funeral Home Director: UNA ARCE ([id number])[facility] (SBHLAB)[address] Urea nitrogen [Mass/Vol] 51 mg/dL High 06-01 [facility] Comment on above: Performed By: #### L AB15 ####Funeral Home Director: UNA ARCE ([id number])[facility] (SBHLAB)[address] BLOOD TYPE AND SCREEN GELon 06-21-2025 ABO GROUPING A Normal [facility] Comment on above: Performed By: #### L [id number] ####Funeral Home Director: UNA ARCE ([id number])[facility] ([facility])[address] RH TYPE IN BLOOD Negative Normal [facility] Comment on above: Performed By: #### L [id number] ####Funeral Home Director: UNA ARCE ([id number])[facility] ([facility])[address] Basic Metabolic Profile (BMP )on 06-21-2025 BUN/CRE 25.4 RATIO High - [facility] Comment on above: Order Comment: 212.1 Performed By: #### L 500.2500, L100.0500 #### [facility] [address], [address] Calcium [Mass/Vol] 8.4 mg/dL Normal 7.6-11.0 [facility] Comment on above: Order Comment: 212.1 Performed By: #### L 500.2500, L100.0500 #### [facility] [address] [place], [address] Chloride [Moles/Vol] 97 mmol/L Low 98-108 [facility] Comment on above: Order Comment: 212.1 Performed By: #### L 500.2500, L100.0500 #### [facility] [address] [place], [address] CO2 [Moles/Vol] 29.6 mmol/L Normal 21.0-32.0 [facility] Comment on above: Order Comment: 212.1 Performed By: #### L 500.2500, L100.0500 #### [facility] [address] [place], [address] Creatinine [Mass/Vol] 1.86 mg/dL High 0.70-1.20 [facility] Comment on above: Order Comment: 212.1 Performed By: #### L 500.2500, L100.0500 #### [facility] [address] [place], [address] GAP 10 Normal 5-15 [facility] Comment on above: Order Comment: 212.1 Performed By: #### L 500.2500, L100.0500 #### [facility] [address] [place], [address] GFR/1.73 sq M.predicted among non-blacks MDRD (S/P/Bld) [Vol rate/Area] 34 mL/min/{1.73_m2} Low >60 [facility] Comment on above: Order Comment: 212.1 Result Comment: mL/m in/1.73m2 CKD-EPI Creatinine Equation (2020) Performed By: #### L 500.2500, L100.0500 #### [facility] [address] [place], [address] Glucose [Mass/Vol] 93 mg/dL Normal 70-99 [facility] Comment on above: Order Comment: 212.1 Performed By: #### L 500.2500, L100.0500 #### [facility] [address] [place], [address] Potassium [Moles/Vol] 3.8 mmol/L Normal 3.3-5.1 [facility] Comment on above: Order Comment: 212.1 Performed By: #### L 500.2500, L100.0500 #### [facility] [address] [place], [address] Sodium [Moles/Vol] 136 mmol/L Normal 133-145 [facility] Comment on above: Order Comment: 212.1 Performed By: #### L 500.2500, L100.0500 #### [facility] [address] [place], [address] Urea nitrogen [Mass/Vol] 47 mg/dL High 4-19 [facility] Comment on above: Order Comment: 212.1 Performed By: #### L 500.2500, L100.0500 #### [facility] [address] [place], [address] Basic metabolic 1998 panelon 06-21-2025 Anion gap [Moles/Vol] 15 mmol/L High 3 - 13 mmol/L [facility] Calcium [Mass/Vol] 8.4 mg/dL Low 8.8 - 10. 0 mg/dL [facility] Chloride [Moles/Vol] 97 mmol/L Low 98 - 10 7 mmol/L [facility] CO2 [Moles/Vol] 25 mmol/L 23 - 31 mmol/L [facility] Creatinine [Mass/Vol] 1.97 mg/dL High 0.72 - 1.25 mg/dL [facility] GFR/1.73 sq M.predicted (S/P/Bld) [Vol rate/Area] 31.9 mL/min Low - PINF [facility] Comment on above: Calculation based on the Chronic Kidney Disease Epidemiology Collaboration (CKD-EPI) equation refit without adjustment for race Glucose [Mass/Vol] 108 mg/dL 82 - 115 mg/dL [facility] Interpretation and review of laboratory results Abnormal [facility] Potassium [Moles/Vol] 4.1 mmol/L 3.5 - 5.1 mmol/L [facility] Comment on above: Plasma potassium traci ues may be up to 0.5 mmol/L lower than serum values. Sodium [Moles/Vol] 137 mmol/L 136 - 145 mmol/L [facility] Urea nitrogen [Mass/Vol] 51 mg/dL High 9 - 23 mg/d L [facility] Blood type and Crossmatch pa valente (Bld)on 06-21-2025 ABO group Nom (Bld) A [facility] Blood group antibody screen GEL Ql Negative [facility] D Ag Ql (RBC) Negative [facility] CBC W Auto Differential pane l (Bld)Ordered By: Sallie Powell on 06-21-2025 Erythrocyte distribution width (RBC) [Ratio] 16.7 % High 11.5 - 15.0 % [facility] Hematocrit (Bld) [Volume fraction] 23.3 % Low 40.0 - 52.0 % [facility] Hemoglobin (Bld) [Mass/Vol] 7.4 g/dL Low 13.0 - 18.0 g/dL [facility] Interpretation and review of laboratory results Abnormal [facility] MCH (RBC) [Entitic mass] 29 pg 26. 0 - 34.0 pg [facility] MCHC (RBC) [Mass/Vol] 31.8 % 30.5 - 36.0 % [facility] MCV (RBC) [Entitic vol] 91.4 fL 77.0 - 99.0 fL [facility] Platelet mean volume (Bld) [Entitic vol] 8.5 fL Low 9.0 - 12.7 fL [facility] Platelets (Bld) [#/Vol] 513 10*3/uL High 140 - 440 10*3/uL [facility] RBC (Bld) [#/Vol] 2.55 10*6/uL Low 4.40 - 5.9 0 10*6/uL [facility] WBC (Bld) [#/Vol] 16.8 10*3/uL High 3.6 - 10.7 10*3/uL [facility] CBC WITH AUTO DIFFERENTIALon 06-21-2025 Erythrocyte distribution width (RBC) [Ratio] 16.7 % High 11.5-15.0 [facility] Comment on above: Performed By: #### L [id number], [id number] ####Funeral Home Director: UNA ARCE ([id number])[facility])[address] [place] [address] Hematocrit (Bld) [Volume fraction] 23.3 % Low 40.0-52.0 [facility] Comment on above: Performed By: #### L [id number], [id number] ####Funeral Home Director: UNA ARCE ([id number])LYNETTE SANCHEZLUIS (SBHLAB)[address] Hemoglobin (Bld) [Mass/Vol] 7.4 g/dL Low 13.0-18.0 [facility] Comment on above: Performed By: #### L [id number], [id number] ####Funeral Home Director: UNA ARCE ([id number])[facility]ENTERAngel SANCHEZNEW MEXICO BEHAVIORAL HEALTH INSTITUTE AT LAS VEGASMarisol (SBHLAB)[address] MCH (RBC) [Entitic mass] 29.0 pg Normal 26.0-34.0 [facility] Comment on above: Performed By: #### L [id number], [id number] ####Funeral Home Director: UNA ARCE ([id number])[facility]ENTERAngel SANCHEZNEW MEXICO BE[facility]IOR[facility] INSTITUTE AT L[facility] VEGASN (SBHLAB)[address] MCHC 31.8 % Normal 30.5-36.0 [facility] Comment on above: Performed By: #### L [id number], [id number] ####Funeral Home Director: UNA ARCE ([id number])[facility]ENTER[facility] SANCHEZLUIS (SBHLAB)[address] MCV (RBC) [Entitic vol] 91.4 fL Normal 77.0-99.0 S [facility] Comment on above: Performed By: #### L [id number], [id number] ####Funeral Home Director: UNA ARCE ([id number])[facility]ENTERAngel SANCHEZNEW MEXICO BE[facility] HE[facility] INSTITUTE AT L[facility] VEGASN (SBHLAB)[address] Platelet mean volume (Bld) [Entitic vol] 8.5 fL Low 9.0-12.7 [facility] Comment on above: Performed By: #### L [id number], [id number] ####Funeral Home Director: UNA ARCE ([id number])[facility]ENTER[facility] ESCOTO (SBHLAB)[address] Platelets (Bld) [#/Vol] 513 10*3/uL High 140-440 [facility] Comment on above: Performed By: #### L [id number], [id number] ####Funeral Home Director: UNA ARCE ([id number])[facility]ENTERAngel BASHIR (SBHLAB)[address] RBC (Bld) [#/Vol] 2.55 10*6/uL Low 4.40-5.90 [facility] Comment on above: Performed By: #### L [id number], [id number] ####Funeral Home Director: UNA ARCE ([phone])[facility] CENTERAngel ESCOTO (HLAB)[address] [place] [address] WBC (Bld) [#/Vol] 16.8 10*3/uL High 3.6-10.7 [facility] Comment on above: Performed By: #### L [id number], [id number] ####Funeral Home Director: UNA ARCE ([id number])[facility] CENTERAngel [facility] ([facility])[address] [place] [address] CBC-Complete Blood Cnt No Di ffon 06-21-2025 Erythrocyte distribution width (RBC) [Ratio] 16.8 % High 11.6-14.6 [facility] Comment on above: Order Comment: 212.1 Performed By: #### L 500.2500, L100.0500 #### [facility] [address] [place], [address] Hematocrit (Bld) [Volume fraction] 21.5 % Low 40-54 [facility] Comment on above: Order Comment: 212.1 Performed By: #### L 500.2500, L100.0500 #### [facility] [address] [place], [address] Hemoglobin (Bld) [Mass/Vol] 6.9 g/dL Low 13.0-16.5 [facility] Comment on above: Order Comment: 212.1 Performed By: #### L 500.2500, L100.0500 #### [facility] [address] [place], [address] MCH (RBC) [Entitic mass] 28.8 pg Normal 27.0-32.0 [facility] Comment on above: Order Comment: 212.1 Performed By: #### L 500.2500, L100.0500 #### [facility] [address] [place], [address] MCHC (RBC) [Mass/Vol] 32.1 g/dL Normal 32-36 [facility] Comment on above: Order Comment: 212.1 Performed By: #### L 500.2500, L100.0500 #### [facility] [address] [place], [address] MCV (RBC) [Entitic vol] 89.6 fL Normal 80-94 [facility] Comment on above: Order Comment: 212.1 Performed By: #### L 500.2500, L100.0500 #### [facility] [address] [place], [address] Platelet mean volume (Bld) [Entitic vol] 8.7 fL Normal 6.2-12.0 [facility] Comment on above: Order Comment: 212.1 Performed By: #### L 500.2500, L100.0500 #### [facility] [address] [place], [address] Platelets (Bld) [#/Vol] 457 10*3/uL High 150-450 [facility] Comment on above: Order Comment: 212.1 Performed By: #### L 500.2500, L100.0500 #### [facility] [address] [place], [address] RBC (Bld) [#/Vol] 2.40 10*6/uL Low 4.6-6.2 [facility] Comment on above: Order Comment: 212.1 Performed By: #### L 500.2500, L100.0500 #### [facility] [address] [place], [address] RDW SD 55.8 fl High 35.1-43.9 [facility] Comment on above: Order Comment: 212.1 Performed By: #### L 500.2500, L100.0500 #### [facility] [address] [place], [address] WBC (Bld) [#/Vol] 14.3 10*3/uL High 4.4-11.0 [facility] Comment on above: Order Comment: 212.1 Performed By: #### L 500.2500, L100.0500 #### [facility] [address] [place], [address] ECG 12-LEADon 06-21-2025 ECG 12-LEAD IMPRESSION: Sinus rhythm Atrial premature complexes Left anterior fascicular block Similar to prior on 04/13/25 Electronically Signed On 06-21-2025 23:12:12 EDT by Sagar Gilliam Normal [facility] ED Nursing Noteon 06-21-2025 ED Nursing Note This RN at bedside for first 15 minutes of blood transfusion. Pt tolerating transfusion. VS updated in system. Normal [facility] ED Nursing Note Patient arrives via EMS from [facility] following bloodwork that showed low hemoglobin. No overt signs of bleeding on arrival. Patient A&O4. Patient does endorse previous blood transfusions. Normal [facility] ED Provider Noteon ED Provider Note Normal [facility] - Hematology and Cell countson 06-21-2025 Eosinophils (Bld) [#/Vol] 0.3 10*3/uL 0.0 - 0.5 10*3/uL [facility] Eosinophils/100 WBC (Bld) 2 % 0 - 6 % [facility] Giant platelets LM Ql (Bld) Rare Abnormal (none) [facility] Hypochromia Ql (Bld) Slight Abnormal (none) [facility] Lymphocytes (Bld) [#/Vol] 4 10*3/uL 1.0 - 4.3 10*3/uL [facility] Lymphocytes/100 WBC (Bld) 24 % 15 - 45 % [facility] Monocytes (Bld) [#/Vol] 1.2 10*3/uL High 0.0 - 0.9 10*3/uL [facility] Monocytes/100 WBC (Bld) 7 % 5 - 13 % [facility] Neutrophils (Bld) [#/Vol] 11.3 10*3/uL High 1.8 - 7.5 10*3/uL [facility] Ovalocytes LM Ql (Bld) Rare Abnormal (none) [facility] RBC morphology finding Nom (Bld) abnormal [facility] Segmented neutrophils/100 WBC (Bld) 67 % 38 - 82 % [facility] MANUAL DIFFERENTIAL (CELLAVI BANDAR)on 06-21-2025 BAND NEUTROPHILS TOTAL PER COUNTED LEUKOCYTES BY MANUAL COUNT Normal [facility] Comment on above: Performed By: #### L [id number], [id number] ####Funeral Home Director: UNA ARCE ([id number])[facility]ENTERA BARBNEW MEXICO [facility]GASN (SBHLAB)[address] [place] [address] [place] BASOPHILS TOTAL PER COUNTED LEUKOCYTES BY MANUAL COUNT Normal [facility] Comment on above: Performed By: #### L [id number], [id number] ####Funeral Home Director: UNA ARCE ([id number])[facility] (SBHLAB)[address] [place] [address] [place] BLASTS TOTAL PER COUNTED LEUKOCYTES BY MANUAL COUNT Normal [facility] Comment on above: Performed By: #### L [id number], [id number] ####Funeral Home Director: UNA ARCE ([id number])[facility]ENTERA [place] (SBHLAB)[address] [place] [address] [place] EOSINOPHILS (10*3/UL) IN BLOOD-CELLAVISION 0.3 10*3/uL Normal 0.0-0.5 [facility] Comment on above: Performed By: #### L [id number], [id number] ####Funeral Home Director: UNA ARCE ([id number])[facility]ENTERA [place] (SBHLAB)[address] [place] [address] [place] EOSINOPHILS TOTAL PER COUNTED LEUKOCYTES BY MANUAL COUNT 2 High 0-1 [facility] Comment on above: Performed By: #### L [id number], [id number] ####Funeral Home Director: UNA ARCE ([id number])[facility]A [place] (SBHLAB)[address] [place] [address] [place] EOSINOPHILS/100 LEUKOCYTES IN BLOOD-CELLAVISION 2 % Normal 0-6 [facility] Comment on above: Performed By: #### L [id number], [id number] ####Funeral Home Director: UNA MOHRCER ([id number])[facility]A [place] (SBHLAB)[address] [place] [address] [place] HYPOCHROMIA (PRESENCE) IN BLOOD BY LIGHT MICROSCOPY Slight Abnormal (none) [facility] Comment on above: Performed By: #### L [id number], [id number] ####Funeral Home Director: UNA ARCE ([id number])[facility]ENTERA [facility]BNEW MEX[facility]N (SBHLAB)[address] [place] [address] [place] LYMPHOCYTES (10*3/UL) IN BLOOD-CELLAVISION 4.0 10*3/uL Normal 1.0-4.3 [facility] Comment on above: Performed By: #### L [id number], [id number] ####Funeral Home Director: UNA ARCE ([id number])[facility]A [place] (SBHLAB)[address] [place] [address] [place] LYMPHOCYTES TOTAL PER COUNTED LEUKOCYTES BY MANUAL COUNT 24 Normal [facility] Comment on above: Performed By: #### L [id number], [id number] ####Funeral Home Director: UNA ARCE ([id number])[facility] [place] (SBHLAB)[address] [place] [address] [place] LYMPHOCYTES/100 LEUKOCYTES IN BLOOD-CELLAVISION 24 % Normal 15-45 [facility] Comment on above: Performed By: #### L [id number], [id number] ####Funeral Home Director: UNA ARCE ([id number])[facility] [place] (SBHLAB)[address] [place] [address] [place] METAMYELOCYTES TOTAL PER COUNTED LEUKOCYTES BY MANUAL COUNT Normal [facility] Comment on above: Performed By: #### L [id number], [id number] ####Funeral Home Director: UNA MOHRCER ([phone])[facility] [place] (SBHLAB)[address] [place] [address] [place] MONOCYTES (10*3/UL) IN BLOOD-CELLAVISION 1.2 10*3/uL High 0.0-0.9 [facility] Comment on above: Performed By: #### L [id number], [id number] ####Funeral Home Director: UNA MORHCER ([phone])[facility] [place] (SBHLAB)[address] [place] [address] [place] MONOCYTES TOTAL PER COUNTED LEUKOCYTES BY MANUAL COUNT 7 Normal [facility] Comment on above: Performed By: #### L [id number], [id number] ####Funeral Home Director: UNA MOHRCER ([phone])[facility]A [place] (SBHLAB)[address] [place] [address] [place] MONOCYTES/100 LEUKOCYTES IN BLOOD-LUCIANA 7 % Normal -13 [facility] Comment on above: Performed By: #### L [id number], [id number] ####Funeral Home Director: UNA ARCE ([id number])[facility]A [place] (SBHLAB)[address] [place] [address] [place] MYELOCYTES COUNTED BY MANUAL COUNT [facility] Comment on above: Performed By: #### L [id number], [id number] ####Funeral Home Director: UNA MOHRCER ([id number])[facility] [place] (SBHLAB)[address] [place] [address] [place] NEUTROPHILS TOTAL PER COUNTED LEUKOCYTES BY MANUAL COUNT 67 [facility] Comment on above: Performed By: #### L [id number], [id number] ####Funeral Home Director: UNA MOHRCER ([phone])[facility] [place] (SBHLAB)[address] [place] [address] [place] OVALOCYTES PRESENCE IN BLOOD BY LIGHT MICROSCOPY Rare Abnormal (none) [facility] Comment on above: Performed By: #### L [id number], [id number] ####Funeral Home Director: UNA ARCE ([id number])[facility]A [place] (SBHLAB)[address] PLATELETS GIANT PRESENCE IN BLOOD BY LIGHT MICROSCOPY Rare Abnormal (none) [facility] Comment on above: Performed By: #### L [id number], [id number] ####Funeral Home Director: UNA ARCE ([id number])[facility] [place] (SBHLAB)[address] PROMYELOCYTES TOTAL PER COUNTED LEUKOCYTES BY MANUAL COUNT Normal [facility] Comment on above: Performed By: #### L [id number], [id number] ####Funeral Home Director: UNA ARCE ([id number])[facility] [place] (SBHLAB)[address] [place] [address] [place] RBC MORPHOLOGY IN BLOOD abnormal Normal S [facility] Comment on above: Performed By: #### L [id number], [id number] ####Funeral Home Director: UNA ARCE ([phone])[facility]ENTERA BARBNEW MEX[facility]N (SBHLAB)[address] [place] [address] [place] SEGMENTED NEUTROPHILS (10*3/UL) IN BLOOD-CELLAVISION 11.3 10*3/uL High 1.8-7.5 [facility] Comment on above: Performed By: #### L [id number], [id number] ####Funeral Home Director: UNA ARCE ([id number])[facility]A [place] (SBHLAB)[address] [place] [address] [place] SEGMENTED NEUTROPHILS/100 LEUKOCYTES-CE 67 % Normal 38-82 [facility] Comment on above: Performed By: #### L [id number], [id number] ####Funeral Home Director: UNA ARCE ([id number])[facility]A [place] (SBHLAB)[address] [place] [address] [place] UNCLASSIFIED CELLS TOTAL PER COUNTED LEUKOCYTES BY MANUAL COUNT Normal [facility] Comment on above: Performed By: #### L [id number], [id number] ####Funeral Home Director: UNA ARCE ([id number])[facility] (SBHLAB)[address] VARIANT LYMPHOCYTES TOTAL PER COUNTED LEUKOCYTES BY MANUAL COUNT Normal [facility] Comment on above: Performed By: #### L [id number], [id number] ####Funeral Home Director: UNA ARCE ([id number])[facility] (SBHLAB)[address] No Panel Informationon 06-21 P Dexter 17 degrees [facility] MO Interval 189 ms [facility] QRS Dexter -50 degrees [facility] QRSD Interval 116 ms [facility] QT Interval 434 ms [facility] QTC Interval 436 ms [facility] T Wave Dexter 37 degrees [facility] Sinus rhythm Atrial premature complexes Left anterior fascicular block Similar to prior on 04/13/25 Electronically Signed On 06-21-2025 23:12:12 EDT by Sagar Gilliam Sagar Carrasquillo DO - 06/21/2025 IMPRESSION: Sinus rhythm Atrial premature complexes Left anterior fascicular block Similar to prior on 04/13/25 Electronically Signed On 06-21-2025 23:12:12 EDT by Sagar Gilliam [facility] Blood Expiration Date S [facility] Crossmatch interpretation COMP [facility] Dispense Status Transfused [facility] Product Blood Type 600 [facility] PRODUCT CODE [id number] [facility] Unit ABO A [facility] Unit Number [id number] [facility] RH Negative [facility] Unit Volume 300 mL [facility] Atypical Lymphocytes Manual [facility] Bands Manual [facility] Basophils Manual [facility] Blasts Manual [facility] Eosinophils Manual 2 High 0 - 1 [facility] Interpretation and review of laboratory results Abnormal [facility] Lymphocytes Manual 24 [facility] Metamyelocytes Manual [facility] Monocytes Manual 7 [facility] Myelocytes Manual [facility] Neutrophils Manual 67 [facility] Promyelocytes Manual [facility] Unclassified Cells, Manual [facility] Vital signson 06-21-2025 Heart rate 63 /min bpm [facility] 36on 06-18-2025 36 Noted; thank you. Normal [facility] SHS 36on 06-17-2025 36 Normal [facility] SHS 36 Normal [facility] BASIC METABOLIC PANELon Anion gap [Moles/Vol] 13 mmol/L Normal 3-13 [facility] Comment on above: Performed By: #### L [id number] ####Funeral Home Director: ANAHY AVILA ([id number])[facility]A [place] (SWRLAB)[address] [place] [address] [place] Calcium [Mass/Vol] 9.2 mg/dL Normal 8.8-10.0 [facility] Comment on above: Performed By: #### L AB15 ####Funeral Home Director: ANAHY AVILA ([id number])[facility] [place] (SWRLAB)[address] [place] [address] [place] Chloride [Moles/Vol] 98 mmol/L Normal 98-107 [facility] Comment on above: Performed By: #### L AB15 ####Funeral Home Director: ANAHY AVILA ([id number])[facility] [place] (SWRLAB)[address] [place] [address] [place] CO2 [Moles/Vol] 29 mmol/L Normal 23-31 [facility] Comment on above: Performed By: #### L AB15 ####Funeral Home Director: ANAHY AVILA ([phone])[facility] [place] (SWRLAB)[address] [place] [address] [place] Creatinine [Mass/Vol] 2.05 mg/dL High 0.72-1.25 [facility] Comment on above: Performed By: #### L AB15 ####Funeral Home Director: ANAHY AVILA ([id number])[facility] [place] (SWRLAB)[address] GLOMERULAR FILTRATION RATE ML/MIN/1.73 SQ M.PREDICTED 30.4 mL/min/1.73m*2 Low >60.0 [facility] Comment on above: Result Comment: Calc ulation based on the Chronic Kidney Disease Epidemiology Collaboration (CKD-EPI) equation refit without adjustment for race Performed By: #### L AB15 ####Funeral Home Director: ANAHY AVILA ([id number])[facility]ENTERAngel [place] (SWRLAB)[address] Glucose [Mass/Vol] 109 mg/dL Normal 82-115 [facility] Comment on above: Performed By: #### L AB15 ####Funeral Home Director: ANAHY AVILA ([id number])[facility]ENTERAngel [place] (SWRLAB)[address] [place] [address] Potassium [Moles/Vol] 4.3 mmol/L Normal 3.5-5.1 [facility] Comment on above: Result Comment: [facility] potassium values may be up to 0.5 mmol/L lower than serum values. Performed By: #### L AB15 ####Funeral Home Director: ANAHY AVILA ([id number])[facility]ENTERAngel [place] (SWRLAB)[address] [place] [address] Sodium [Moles/Vol] 140 mmol/L Normal 136-145 [facility] Comment on above: Performed By: #### L AB15 ####Funeral Home Director: ANAHY AVILA ([id number])[facility]ENTERAngel [place] (SWRLAB)[address] [place] [address] [place] Urea nitrogen [Mass/Vol] 54 mg/dL High 9-23 [facility] Comment on above: Performed By: #### L AB15 ####Funeral Home Director: ANAHY AVILA ([id number])[facility]ENTERAngel [place] (SWRLAB)[address] [place] [address] Basic metabolic 1998 panelon 06-17-2025 Anion gap [Moles/Vol] 13 mmol/L 3 - 13 mmol/L [facility] Calcium [Mass/Vol] 9.2 mg/dL 8.8 - 10. 0 mg/dL [facility] Chloride [Moles/Vol] 98 mmol/L 98 - 10 7 mmol/L [facility] CO2 [Moles/Vol] 29 mmol/L 23 - 31 mmol/L [facility] Creatinine [Mass/Vol] 2.05 mg/dL High 0.72 - 1.25 mg/dL [facility] GFR/1.73 sq M.predicted (S/P/Bld) [Vol rate/Area] 30.4 mL/min Low - PINF [facility] Comment on above: Calculation based on the Chronic Kidney Disease Epidemiology Collaboration (CKD-EPI) equation refit without adjustment for race Glucose [Mass/Vol] 109 mg/dL 82 - 115 mg/dL [facility] Interpretation and review of laboratory results Abnormal [facility] Potassium [Moles/Vol] 4.3 mmol/L 3.5 - 5.1 mmol/L [facility] Comment on above: Plasma potassium traci ues may be up to 0.5 mmol/L lower than serum values. Sodium [Moles/Vol] 140 mmol/L 136 - 145 mmol/L [facility] Urea nitrogen [Mass/Vol] 54 mg/dL High 9 - 23 mg/d L [facility] CBC W Auto Differential pane l (Bld)Ordered By: Jessica Maldonado on 06-17-2025 Basophils (Bld) [#/Vol] 0.1 10*3/uL 0.0 - 0.2 10*3/uL [facility] Basophils/100 WBC (Bld) 0.7 % 0.0 - 2.0 % [facility] Eosinophils (Bld) [#/Vol] 0.4 10*3/uL 0.0 - 0.5 10*3/uL [facility] Eosinophils/100 WBC (Bld) 2.2 % 0.0 - 6.0 % [facility] Erythrocyte distribution width (RBC) [Ratio] 17.2 % High 11.5 - 15.0 % [facility] Hematocrit (Bld) [Volume fraction] 25.7 % Low 40.0 - 52.0 % [facility] Hemoglobin (Bld) [Mass/Vol] 8.2 g/dL Low 13.0 - 18.0 g/dL [facility] Immature granulocytes (Bld) [#/Vol] 0.2 10*3/uL High NINF - 0.1 10*3/uL [facility] Immature granulocytes/100 WBC (Bld) 1 % 0.0 - 2.0 % [facility] Interpretation and review of laboratory results Abnormal [facility] Lymphocytes (Bld) [#/Vol] 2.9 10*3/uL 1.0 - 4.3 10*3/uL [facility] Lymphocytes/100 WBC (Bld) 17.2 % 15.0 - 45.0 % [facility] MCH (RBC) [Entitic mass] 29.1 pg 26. 0 - 34.0 pg [facility] MCHC (RBC) [Mass/Vol] 31.9 % 30.5 - 36.0 % [facility] MCV (RBC) [Entitic vol] 91.1 fL 77.0 - 99.0 fL [facility] Monocytes (Bld) [#/Vol] 1.5 10*3/uL High 0.0 - 0.9 10*3/uL [facility] Monocytes/100 WBC (Bld) 9.1 % 5.0 - 13.0 % [facility] Neutrophils (Bld) [#/Vol] 11.5 10*3/uL High 1.8 - 7.5 10*3/uL [facility] Neutrophils/100 WBC (Bld) 69.8 % 38.0 - 82.0 % [facility] Nucleated RBC/100 WBC (Bld) [Ratio] 0 % [facility] Platelet mean volume (Bld) [Entitic vol] 8.7 fL Low 9.0 - 12.7 fL [facility] Comment on above: MPV is a calculated measurement using platelet volume ratio Platelets (Bld) [#/Vol] 517 10*3/uL High 140 - 440 10*3/uL [facility] RBC (Bld) [#/Vol] 2.82 10*6/uL Low 4.40 - 5.9 0 10*6/uL [facility] WBC (Bld) [#/Vol] 16.5 10*3/uL High 3.6 - 10.7 10*3/uL [facility] Moderate Anisocytosi s Slight Hypochromia [facility] CBC WITH AUTO DIFFERENTIALon 06-17-2025 Basophils (Bld) [#/Vol] 0.1 10*3/uL Normal 0.0-0.2 [facility] Comment on above: Performed By: #### L [id number] ####Funeral Home Director: ANAHY AVILA ([id number])[facility] [place] (SWRLAB)[address] [place] [address] [place] Basophils/100 WBC (Bld) 0.7 % Normal 0.0-2.0 [facility] Comment on above: Performed By: #### L [id number] ####Funeral Home Director: ANAHY AVILA ([id number])[facility] [place] [place] (SWRLAB)[address] [place] [address] [place] Eosinophils (Bld) [#/Vol] 0.4 10*3/uL Normal 0.0-0.5 [facility] Comment on above: Performed By: #### L [id number] ####Funeral Home Director: ANAHY AVILA ([phone])[facility] [place] (SWRLAB)[address] [place] [address] [place] Eosinophils/100 WBC (Bld) 2.2 % Normal 0.0-6.0 [facility] Comment on above: Performed By: #### L [id number] ####Funeral Home Director: ANAHY AVILA ([id number])[facility] [place] (SWRLAB)[address] [place] [address] Erythrocyte distribution width (RBC) [Ratio] 17.2 % High 11.5-15.0 [facility] Comment on above: Performed By: #### L [id number] ####Funeral Home Director: ANAHY AVILA ([id number])[facility] [place] (SWRLAB)[address] [place] [address] Hematocrit (Bld) [Volume fraction] 25.7 % Low 40.0-52.0 [facility] Comment on above: Performed By: #### L [id number] ####Funeral Home Director: ANAHY AVILA ([id number])[facility] [place] (SWRLAB)[address] [place] [address] Hemoglobin (Bld) [Mass/Vol] 8.2 g/dL Low 13.0-18.0 [facility] Comment on above: Performed By: #### L [id number] ####Funeral Home Director: ANAHY AVILA ([id number])[facility]ENTERAngel [place] (SWRLAB)[address] [place] [address] IMMATURE GRANS % 1.0 % Normal 0.0-2.0 [facility] Comment on above: Performed By: #### L [id number] ####Funeral Home Director: ANAHY AVILA ([id number])[facility]ENTERAngel [place] (SWRLAB)[address] [place] [address] IMMATURE GRANS ABSOLUTE 0.2 10*3/uL High <0.1 [facility] Comment on above: Result Comment: YARELI [place] COMMENTS:Moderate AnisocytosisSlight Hypochromia Performed By: #### L [id number] ####Funeral Home Director: ANAHY AVILA ([id number])[facility]ENTERAngel [place] (SWRLAB)[address] [place] [address] Lymphocytes (Bld) [#/Vol] 2.9 10*3/uL Normal 1.0-4.3 [facility] Comment on above: Performed By: #### L [id number] ####Funeral Home Director: ANAHY AVILA ([id number])[facility]ENTERAngel [place] (SWRLAB)[address] [place] [address] [place] Lymphocytes/100 WBC (Bld) 17.2 % Normal 15.0-45.0 [facility] Comment on above: Performed By: #### L [id number] ####Funeral Home Director: ANAHY AVILA ([id number])[facility]Angel [place] (SWRLAB)[address] [place] [address] MCH (RBC) [Entitic mass] 29.1 pg Normal 26.0-34.0 [facility] Comment on above: Performed By: #### L [id number] ####Funeral Home Director: ANAHY AVILA ([id number])[facility]NETTE MONTOYA [place] (SWRLAB)[address] [place] [address] [place] MCHC 31.9 % Normal 30.5-36.0 [facility] Comment on above: Performed By: #### L [id number] ####Funeral Home Director: ANAHY AVILA ([phone])[facility]TE MONTOYA [place] (SWRLAB)[address] [place] [address] MCV (RBC) [Entitic vol] 91.1 fL Normal 77.0-99.0 S [facility] Comment on above: Performed By: #### L [id number] ####Funeral Home Director: ANAHY AVILA ([phone])[facility]NETTE MONTOYA [place] (SWRLAB)[address] [place] [address] [place] Monocytes (Bld) [#/Vol] 1.5 10*3/uL High 0.0-0.9 [facility] Comment on above: Performed By: #### L [id number] ####Funeral Home Director: ANAHY AVILA ([phone])LYNETTE MONTOYA R[place]TMAN (SWRLAB)[address] [place] [address] [place] Monocytes/100 WBC (Bld) 9.1 % Normal 5.0-13.0 S [facility] Comment on above: Performed By: #### L [id number] ####Funeral Home Director: ANAHY AVILA ([phone])LYNETTE MONTOYA [place] (SWRLAB)[address] [place] [address] [place] NEUTROPHILS ABSOLUTE 11.5 10*3/uL High 1.8-7.5 [facility] Comment on above: Performed By: #### L [id number] ####Funeral Home Director: ANAHY AVILA ([id number])LYNETTE MONTOYA [place] (SWRLAB)[address] [place] [address] [place] Neutrophils/100 WBC (Bld) 69.8 % Normal 38.0-82.0 [facility] Comment on above: Performed By: #### L [id number] ####Funeral Home Director: ANAHY AVILA ([id number])LYNETTE MONTOYA [place] (SWRLAB)[address] NRBC 0.0 /100 WBCs Normal 0.0-2.0 [facility] Comment on above: Performed By: #### L [id number] ####Funeral Home Director: ANAHY AVILA ([phone])[facility] CENTERAngel MONTOYA [place] (SWRLAB)[address] Platelet mean volume (Bld) [Entitic vol] 8.7 fL Low 9.0-12.7 [facility] Comment on above: Result Comment: MPV is a calculated measurement using platelet volume ratio Performed By: #### L [id number] ####Funeral Home Director: ANAHY AVILA ([id number])[facility]ENTERAngel MONTOYA [place] (SWRLAB)[address] [place] [address] [place] Platelets (Bld) [#/Vol] 517 10*3/uL High 140-440 [facility] Comment on above: Performed By: #### L [id number] ####Funeral Home Director: ANAHY AVILA ([phone])[facility]ENTERAngel MONTOYA [place] (SWRLAB)[address] [place] [address] [place] RBC (Bld) [#/Vol] 2.82 10*6/uL Low 4.40-5.90 [facility] Comment on above: Performed By: #### L [id number] ####Funeral Home Director: ANAHY AVILA ([phone])[facility]ENTERAngel MONTOYA [place] (SWRLAB)[address] [place] [address] [place] WBC (Bld) [#/Vol] 16.5 10*3/uL High 3.6-10.7 [facility] Comment on above: Performed By: #### L [id number] ####Funeral Home Director: ANAHY AVILA ([phone])[facility]ENTERA JAN [place] (SWRLAB)[address] Progress Noteon 06-17-2025 Progress Note Normal [facility] Progress Note Normal [facility] Progress Noteon 06-02-2025 Progress Note Normal [facility] Progress Noteon 05-19-2025 Progress Note Normal [facility] Progress Noteon 05-11-2025 Progress Note Normal [facility] Progress Noteon 05-06-2025 Progress Note Normal [facility] Progress Noteon 05-04-2025 Progress Note Normal [facility] Progress Noteon 05-03-2025 Progress Note Normal [facility] Progress Note CT abdomen with mura l thickening involving the cecum and terminal ileum concern for neoplasm versus inflammation. Seen by GI with plan for EGD and colonoscopy once stable. -GI follow-up Normal [facility] Progress Note Noted to have irregular heart rhythm during hospitalization and multiple EKGs show sinus rhythm with frequent PACs. -Continue Toprol 25 mg p.o. daily Normal [facility] Progress Note Normal [facility] Progress Note Creatinine 1.46 on admission. Peak creatinine 1.78. Most recent creatinine 1.8 per labs 04/26/2025 - Continue to monitor - may have to accept a higher creatinine to keep him out of HF Normal [facility] Progress Note Bedside thoracentesi s 04/09/2025 with 1 L removed from the left and 600 mL removed from the right. Repeat left thoracentesis 04/14/2025 with 600 mL removed. 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 NO angina. - no ASA 2/2 anemia - continue Toprol 25 mg po daily - continue atorvastatin 20 mg po daily - not a candidate or invasive workup due to anemia, advanced age and frailty Normal [facility] Progress Note Normal [facility] Progress Noteon 04-27-2025 Progress Note Normal [facility] Progress Noteon 04-20-2025 Progress Note Normal [facility] Progress Noteon 04-19-2025 Progress Note Normal [facility] [id number] 04-18-2025 [id number] Normal [facility] [id number] 04-17-2025 [id number] Normal [facility] [id number] Jail/SNF - [facility] Member [address] [place] [address] [phone] Patient/Family Choice Normal [facility] [id number] Normal [facility] CBC W Auto Differential pane l (Bld)on 04-17-2025 Erythrocyte distribution width (RBC) [Ratio] 25.7 % High 11.5 - 15.0 % [facility] Hematocrit (Bld) [Volume fraction] 27.9 % Low 40.0 - 52.0 % [facility] Hemoglobin (Bld) [Mass/Vol] 7.9 g/dL Low 13.0 - 18.0 g/dL [facility] MCH (RBC) [Entitic mass] 23.8 pg Low 26. 0 - 34.0 pg [facility] MCHC (RBC) [Mass/Vol] 28.3 % Low 30.5 - 36.0 % [facility] MCV (RBC) [Entitic vol] 84 fL 77.0 - 99.0 fL [facility] Platelet mean volume (Bld) [Entitic vol] 9 fL 9.0 - 12.7 fL [facility] Platelets (Bld) [#/Vol] 419 10*3/uL 140 - 440 10*3/uL [facility] RBC (Bld) [#/Vol] 3.32 10*6/uL Low 4.40 - 5.9 0 10*6/uL [facility] WBC (Bld) [#/Vol] 12 10*3/uL High 3.6 - 10.7 10*3/uL [facility] CBC WITH AUTO DIFFERENTIALon 04-17-2025 Erythrocyte distribution width (RBC) [Ratio] 25.7 % High 11.5-15.0 [facility] Comment on above: Performed By: #### L [id number], [id number] ####Funeral Home Director: UNA ARCE ([id number])[facility] ([facility])[address] [place] [address] Hematocrit (Bld) [Volume fraction] 27.9 % Low 40.0-52.0 [facility] Comment on above: Performed By: #### L [id number], [id number] ####Funeral Home Director: UNA ARCE ([id number])LYNETTE SANCHEZLUIS (SBHLAB)[address] Hemoglobin (Bld) [Mass/Vol] 7.9 g/dL Low 13.0-18.0 [facility] Comment on above: Performed By: #### L [id number], [id number] ####Funeral Home Director: UNA ARCE ([id number])[facility]ENTERAngel SANCHEZLUIS (SBHLAB)[address] MCH (RBC) [Entitic mass] 23.8 pg Low 26.0-34.0 [facility] Comment on above: Performed By: #### L [id number], [id number] ####Funeral Home Director: UNA ARCE ([id number])[facility]ENTERAngel SANCHEZLUIS (SBHLAB)[address] MCHC 28.3 % Low 30.5-36.0 [facility] Comment on above: Performed By: #### L [id number], [id number] ####Funeral Home Director: UNA ARCE ([id number])[facility]ENTERAngel SANCHEZLUIS (SBHLAB)[address] MCV (RBC) [Entitic vol] 84.0 fL Normal 77.0-99.0 S [facility] Comment on above: Performed By: #### L [id number], [id number] ####Funeral Home Director: UNA ARCE ([id number])[facility]ENTERAngel SANCHEZLUIS (SBHLAB)[address] Platelet mean volume (Bld) [Entitic vol] 9.0 fL Normal 9.0-12.7 [facility] Comment on above: Performed By: #### L [id number], [id number] ####Funeral Home Director: UNA ARCE ([id number])[facility]ENTERAngel SANCHEZLUIS (SBHLAB)[address] Platelets (Bld) [#/Vol] 419 10*3/uL Normal 140-440 [facility] Comment on above: Performed By: #### L [id number], [id number] ####Funeral Home Director: UNA ARCE ([id number])[facility]ENTERA [place] (SBHLAB)[address] RBC (Bld) [#/Vol] 3.32 10*6/uL Low 4.40-5.90 [facility] Comment on above: Performed By: #### L [id number], [id number] ####Funeral Home Director: UNA ARCE ([id number])[facility]ENTERA [place] (SBHLAB)[address] WBC (Bld) [#/Vol] 12.0 10*3/uL High 3.6-10.7 [facility] Comment on above: Performed By: #### L [id number], [id number] ####Funeral Home Director: UNA ARCE ([id number])[facility]ENTERA BARBNEW MEXICO [facility]ASN (SBHLAB)[address] COMPREHENSIVE METABOLIC PANE Anant 04-17-2025 Albumin [Mass/Vol] 2.1 g/dL Low 3.4-4.8 [facility] Comment on above: Performed By: #### L AB103, LAB17 ####Funeral Home Director: UNA ARCE ([id number])[facility]A [place] (SBHLAB)[address] ALP [Catalytic activity/Vol] 49 U/L Normal 40-150 [facility] Comment on above: Performed By: #### L AB103, LAB17 ####Funeral Home Director: UNA ARCE ([id number])[facility] [place] (SBHLAB)[address] ALT [Catalytic activity/Vol] U/L Normal <40 [facility] Comment on above: Performed By: #### L AB103, LAB17 ####Funeral Home Director: UNA ARCE ([id number])[facility] [place] (SBHLAB)[address] Anion gap [Moles/Vol] 10 mmol/L Normal 3-13 [facility] Comment on above: Performed By: #### L AB103, LAB17 ####Funeral Home Director: UNA ARCE ([id number])[facility]A [place] (SBHLAB)[address] AST [Catalytic activity/Vol] 22 U/L Normal <34 [facility] Comment on above: Performed By: #### L AB103, LAB17 ####Funeral Home Director: UNA ARCE ([id number])[facility]A [place] (SBHLAB)[address] Bilirubin [Mass/Vol] 0.5 mg/dL Normal <1.2 [facility] Comment on above: Performed By: #### L AB103, LAB17 ####Funeral Home Director: UNA ARCE ([id number])[facility] [place] (SBHLAB)[address] Calcium [Mass/Vol] 8.4 mg/dL Low 8.8-10.0 [facility] Comment on above: Performed By: #### L AB103, LAB17 ####Funeral Home Director: UNA ARCE ([id number])[facility] [place] (SBHLAB)[address] Chloride [Moles/Vol] 88 mmol/L Low 98-107 [facility] Comment on above: Performed By: #### L AB103, LAB17 ####Funeral Home Director: UNA ARCE ([id number])[facility]A [place] (SBHLAB)[address] [place] [address] [place] CO2 [Moles/Vol] 40 mmol/L High 23-31 [facility] Comment on above: Performed By: #### L AB103, LAB17 ####Funeral Home Director: UNA ARCE ([id number])[facility] [place] (SBHLAB)[address] Creatinine [Mass/Vol] 1.67 mg/dL High 0.72-1.25 [facility] Comment on above: Performed By: #### L AB103, LAB17 ####Funeral Home Director: UNA ARCE ([id number])[facility]ENTERAngel BASHIRN (SBHLAB)[address] [place] [address] [place] GLOMERULAR FILTRATION RATE ML/MIN/1.73 SQ M.PREDICTED 38.9 mL/min/1.73m*2 Low >60.0 [facility] Comment on above: Result Comment: Calc ulation based on the Chronic Kidney Disease Epidemiology Collaboration (CKD-EPI) equation refit without adjustment for race Performed By: #### L 103, LAB17 ####Funeral Home Director: UNA ARCE ([id number])[facility]ENTERAngel BASHIRN (SBHLAB)[address] Glucose [Mass/Vol] 94 mg/dL Normal 82-115 [facility] Comment on above: Performed By: #### L AB103, LAB17 ####Funeral Home Director: UNA ARCE ([id number])[facility]ENTERAngel [facility] (SBHLAB)[address] Potassium [Moles/Vol] 3.6 mmol/L Normal 3.5-5.1 [facility] Comment on above: Result Comment: [facility] potassium values may be up to 0.5 mmol/L lower than serum values. Performed By: #### L AB103, LAB17 ####Funeral Home Director: UNA ARCE ([id number])[facility]ENTERAngel BASHIRN (SBHLAB)[address] [place] [address] [place] Protein [Mass/Vol] 5.8 g/dL Low 6.4-8.3 [facility] Comment on above: Performed By: #### L AB103, LAB17 ####Funeral Home Director: UNA ARCE ([id number])[facility]ENTERAngel SANCHEZNEW MEXICO BEH[facility]IOR[facility] HE[facility] INSTITUTE AT L[facility] VEGASN (SBHLAB)[address] [place] [address] [place] Sodium [Moles/Vol] 138 mmol/L Normal 136-145 [facility] Comment on above: Performed By: #### L AB103, LAB17 ####Funeral Home Director: UNA ARCE ([id number])[facility] (SBHLAB)[address] Urea nitrogen [Mass/Vol] 46 mg/dL High 9-23 [facility] Comment on above: Performed By: #### L AB103, LAB17 ####Funeral Home Director: UNA ARCE ([phone])[facility] (SBHLAB)[address] Comprehensive metabolic 1998 panelon 04-17-2025 Albumin [Mass/Vol] 2.1 g/dL Low 3.4 - 4.8 g/dL [facility] ALP [Catalytic activity/Vol] 49 U/L 40 - 150 U/L [facility] ALT [Catalytic activity/Vol] U/L NINF - 40 U/L [facility] Anion gap [Moles/Vol] 10 mmol/L 3 - 13 mmol/L [facility] AST [Catalytic activity/Vol] 22 U/L NINF - 34 U/L [facility] Bilirubin [Mass/Vol] 0.5 mg/dL NINF - 1.2 mg/dL [facility] Calcium [Mass/Vol] 8.4 mg/dL Low 8.8 - 10. 0 mg/dL [facility] Chloride [Moles/Vol] 88 mmol/L Low 98 - 10 7 mmol/L [facility] CO2 [Moles/Vol] 40 mmol/L High 23 - 31 mmol/L [facility] Creatinine [Mass/Vol] 1.67 mg/dL High 0.72 - 1.25 mg/dL [facility] GFR/1.73 sq M.predicted (S/P/Bld) [Vol rate/Area] 38.9 mL/min Low - PINF [facility] Glucose [Mass/Vol] 94 mg/dL 82 - 115 mg/dL [facility] Interpretation and review of laboratory results Abnormal [facility] Potassium [Moles/Vol] 3.6 mmol/L 3.5 - 5.1 mmol/L [facility] Protein [Mass/Vol] 5.8 g/dL Low 6.4 - 8.3 g/dL [facility] Sodium [Moles/Vol] 138 mmol/L 136 - 145 mmol/L [facility] Urea nitrogen [Mass/Vol] 46 mg/dL High 9 - 23 mg/d L [facility] Laboratory - Chemistry and C hemistry - challengeon 04-17-2025 Magnesium [Mass/Vol] 1.8 mg/dL 1.6 - 2 .6 mg/dL [facility] Laboratory - Hematology and Cell countson 04-17-2025 Anisocytosis Ql (Bld) Slight Abnormal (none) [facility] Basophils (Bld) [#/Vol] 0.4 10*3/uL High 0.0 - 0.2 10*3/uL [facility] Basophils/100 WBC (Bld) 3 % High 0 - 2 % [facility] Eosinophils (Bld) [#/Vol] 0.2 10*3/uL 0.0 - 0.5 10*3/uL [facility] Eosinophils/100 WBC (Bld) 2 % 0 - 6 % [facility] Hypochromia Ql (Bld) Moderate Abnormal (none) [facility] Lymphocytes (Bld) [#/Vol] 1.3 10*3/uL 1.0 - 4.3 10*3/uL [facility] Lymphocytes/100 WBC (Bld) 11 % Low 15 - 45 % [facility] Monocytes (Bld) [#/Vol] 0.8 10*3/uL 0.0 - 0.9 10*3/uL [facility] Monocytes/100 WBC (Bld) 7 % 5 - 13 % [facility] Neutrophils (Bld) [#/Vol] 9.2 10*3/uL High 1.8 - 7.5 10*3/uL [facility] Poikilocytosis LM Ql (Bld) Moderate Abnormal (none) [facility] Polychromasia LM Ql (Bld) Slight Abnormal (none) [facility] RBC morphology finding Nom (Bld) abnormal [facility] Segmented neutrophils/100 WBC (Bld) 77 % 38 - 82 % [facility] Stomatocytes LM Ql (Bld) Moderate Abnormal (none) [facility] Target cells LM Ql (Bld) Slight Abnormal (none) [facility] MAGNESIUMon 04-17-2025 Magnesium [Mass/Vol] 1.8 mg/dL Normal 1.6-2.6 [facility] Comment on above: Result Comment: YARELI R COMMENTS:Higher values can be expected in females during menses. Performed By: #### L AB103, LAB17 ####Funeral Home Director: UNA ARCE ([id number])[facility] [place] (SBHLAB)[address] MANUAL DIFFERENTIAL (CELLAVI BANDAR)on 04-17-2025 ANISOCYTOSIS PRESENCE IN BLOOD BY LIGHT MICROSCOPY Slight Abnormal (none) [facility] Comment on above: Performed By: #### L [id number], [id number] ####Funeral Home Director: UNA ARCE ([id number])[facility]ENTERA [facility]BNEW [facility]EX[facility] VEGASN (SBHLAB)[address] BAND NEUTROPHILS TOTAL PER COUNTED LEUKOCYTES BY MANUAL COUNT Normal [facility] Comment on above: Performed By: #### L [id number], [id number] ####Funeral Home Director: UNA ARCE ([id number])[facility]ENTERA [facility] (SBHLAB)[address] [place] [address] [place] BASOPHILS (10*3/UL) IN BLOOD-CELLAVISION 0.4 10*3/uL High 0.0-0.2 [facility] Comment on above: Performed By: #### L [id number], [id number] ####Funeral Home Director: UNA ARCE ([id number])[facility]ENTERA [facility]BNEW [facility] AT [facility]N (SBHLAB)[address] [place] [address] [place] BASOPHILS TOTAL PER COUNTED LEUKOCYTES BY MANUAL COUNT 3 Normal [facility] Comment on above: Performed By: #### L [id number], [id number] ####Funeral Home Director: UNA ARCE ([id number])[facility] [place] (SBHLAB)[address] [place] [address] [place] BASOPHILS/100 LEUKOCYTES IN BLOOD-CELLAVISION 3 % High 0-2 [facility] Comment on above: Performed By: #### L [id number], [id number] ####Funeral Home Director: UNA ARCE ([id number])[facility]A [facility] AT [facility]N (SBHLAB)[address] [place] [address] [place] BLASTS TOTAL PER COUNTED LEUKOCYTES BY MANUAL COUNT Normal [facility] Comment on above: Performed By: #### L [id number], [id number] ####Funeral Home Director: UNA ARCE ([id number])[facility] CENTERAngel [facility]BNEW MEXICO [facility] AT L[facility]ASN (SBHLAB)[address] [place] [address] [place] EOSINOPHILS (10*3/UL) IN BLOOD-CELLAVISION 0.2 10*3/uL Normal 0.0-0.5 [facility] Comment on above: Performed By: #### L [id number], [id number] ####Funeral Home Director: UNA ARCE ([id number])[facility] (SBHLAB)[address] [place] [address] [place] EOSINOPHILS TOTAL PER COUNTED LEUKOCYTES BY MANUAL COUNT 2 High 0-1 [facility] Comment on above: Performed By: #### L [id number], [id number] ####Funeral Home Director: UNA ARCE ([id number])[facility] (SBHLAB)[address] [place] [address] [place] EOSINOPHILS/100 LEUKOCYTES IN BLOOD-CELLAVISION 2 % Normal 0-6 [facility] Comment on above: Performed By: #### L [id number], [id number] ####Funeral Home Director: UNA ARCE ([id number])[facility] (SBHLAB)[address] [place] [address] [place] HYPOCHROMIA (PRESENCE) IN BLOOD BY LIGHT MICROSCOPY Moderate Abnormal (none) [facility] Comment on above: Performed By: #### L [id number], [id number] ####Funeral Home Director: UNA ARCE ([id number])[facility] (SBHLAB)[address] [place] [address] [place] LYMPHOCYTES (10*3/UL) IN BLOOD-CELLAVISION 1.3 10*3/uL Normal 1.0-4.3 [facility] Comment on above: Performed By: #### L [id number], [id number] ####Funeral Home Director: UNA ARCE ([id number])[facility] [place] (SBHLAB)[address] [place] [address] [place] LYMPHOCYTES TOTAL PER COUNTED LEUKOCYTES BY MANUAL COUNT 11 Normal [facility] Comment on above: Performed By: #### L [id number], [id number] ####Funeral Home Director: UNA BERMUDEZPEDRO ([id number])[facility] [place] (SBHLAB)[address] [place] [address] [place] LYMPHOCYTES/100 LEUKOCYTES IN BLOOD-CELLAVISION 11 % Low 15-45 [facility] Comment on above: Performed By: #### L [id number], [id number] ####Funeral Home Director: UNA STAUFFERMELANIE ([id number])[facility] [place] (SBHLAB)[address] [place] [address] [place] METAMYELOCYTES TOTAL PER COUNTED LEUKOCYTES BY MANUAL COUNT Normal [facility] Comment on above: Performed By: #### L [id number], [id number] ####Funeral Home Director: UNA STAUFFERMELANIE ([id number])[facility] [place] (SBHLAB)[address] [place] [address] [place] MONOCYTES (10*3/UL) IN BLOOD-CELLAVISION 0.8 10*3/uL Normal 0.0-0.9 [facility] Comment on above: Performed By: #### L [id number], [id number] ####Funeral Home Director: UNA ARCE ([id number])[facility] [place] (SBHLAB)[address] [place] [address] [place] MONOCYTES TOTAL PER COUNTED LEUKOCYTES BY MANUAL COUNT 7 Normal [facility] Comment on above: Performed By: #### L [id number], [id number] ####Funeral Home Director: UNA ARCE ([id number])[facility] [place] (SBHLAB)[address] [place] [address] [place] MONOCYTES/100 LEUKOCYTES IN BLOOD-LUCIANA 7 % Normal 5-13 [facility] Comment on above: Performed By: #### L [id number], [id number] ####Funeral Home Director: UNA ARCE ([id number])[facility] [place] (SBHLAB)[address] [place] [address] [place] MYELOCYTES COUNTED BY MANUAL COUNT Normal [facility] Comment on above: Performed By: #### L [id number], [id number] ####Funeral Home Director: UNA BERMUDEZPEDRO ([id number])[facility] [place] (SBHLAB)[address] [place] [address] [place] NEUTROPHILS TOTAL PER COUNTED LEUKOCYTES BY MANUAL COUNT 77 Normal [facility] Comment on above: Performed By: #### L [id number], [id number] ####Funeral Home Director: UNA YAZMIN ([id number])[facility] [place] (SBHLAB)[address] [place] [address] [place] POIKILOCYTOSIS (PRESENCE) IN BLOOD BY LIGHT MICROSCOPY Moderate Abnormal (none) [facility] Comment on above: Performed By: #### L [id number], [id number] ####Funeral Home Director: UNA BERMUDEZPEDRO ([id number])[facility] [place] (SBHLAB)[address] [place] [address] [place] POLYCHROMASIA IN BLOOD BY LIGHT MICROSCOPY Slight Abnormal (none) [facility] Comment on above: Performed By: #### L [id number], [id number] ####Funeral Home Director: UNA BERMUDEZPEDRO ([phone])[facility] [place] (SBHLAB)[address] [place] [address] [place] PROMYELOCYTES TOTAL PER COUNTED LEUKOCYTES BY MANUAL COUNT Normal [facility] Comment on above: Performed By: #### L [id number], [id number] ####Funeral Home Director: UNA BERMUDEZPEDRO ([id number])[facility] [place] (SBHLAB)[address] [place] [address] [place] RBC MORPHOLOGY IN BLOOD abnormal Normal [facility] Comment on above: Performed By: #### L [id number], [id number] ####Funeral Home Director: UNA BERMUDEZPEDRO ([id number])[facility] [place] (SBHLAB)[address] [place] [address] [place] SEGMENTED NEUTROPHILS (10*3/UL) IN BLOOD-CELLAVISION 9.2 10*3/uL High 1.8-7.5 [facility] Comment on above: Performed By: #### L [id number], [id number] ####Funeral Home Director: UNA ARCE ([id number])[facility] [place] ([facility])[address] SEGMENTED NEUTROPHILS/100 LEUKOCYTES-CE 77 % Normal 38-82 [facility] Comment on above: Performed By: #### L [id number], [id number] ####Funeral Home Director: UNA ARCE ([id number])[facility] [place] ([facility])[address] STOMATOCYTES IN BLOOD BY LIGHT MICROSCOPY Moderate Abnormal (none) [facility] Comment on above: Performed By: #### L [id number], [id number] ####Funeral Home Director: UNA ARCE ([id number])[facility] [place] (SB[facility])[address] [place] [address] [place] [employer] CELLS IN BLOOD BY LIGHT MICROSCOPY Slight Abnormal (none) [facility] Comment on above: Performed By: #### L [id number], [id number] ####Funeral Home Director: UNA ARCE ([id number])[facility] [place] (SB[facility])[address] UNCLASSIFIED CELLS TOTAL PER COUNTED LEUKOCYTES BY MANUAL COUNT Normal [facility] Comment on above: Performed By: #### L [id number], [id number] ####Funeral Home Director: UNA ARCE ([id number])[facility] [place] ([facility])[address] [place] [address] [place] VARIANT LYMPHOCYTES TOTAL PER COUNTED LEUKOCYTES BY MANUAL COUNT Normal [facility] Comment on above: Performed By: #### L [id number], [id number] ####Funeral Home Director: UNA ARCE ([id number])[facility] [place] ([facility])[address] [place] [address] [place] Magnesium [Mass/Vol]on 04-17 Interpretation and review of laboratory results Normal [facility] No Panel Informationon 04-17 [facility] Basophils Manual 3 [facility] alth Eosinophils Manual 2 High 0 - 1 [facility] Interpretation and review of laboratory results Abnormal [facility] Lymphocytes Manual 11 [facility] Monocytes Manual 7 [facility] alth Neutrophils Manual 77 [facility] Nursing Noteon 04-17-2025 Nursing Note Report given to Flor MYERS at [facility]. All belongings sent with patient, including eyewear. HL removed, site WNL. Normal [facility] Progress Noteon 04-17-2025 Progress Note Normal [facility] Progress Note Normal [facility] [id number] 04-16-2025 [id number] Tasked weekend TTC t o follow for possible dc over the weekend. manager policy to follow and assist as needed. Normal [facility] [id number] Complete in HEN S for [facility] per TCC request Normal [facility] [id number] Normal [facility] CBC W Auto Differential pane l (Bld)Ordered By: Dayan Hernandez on 04-16-2025 Erythrocyte distribution width (RBC) [Ratio] 25.7 % High 11.5 - 15.0 % [facility] Hematocrit (Bld) [Volume fraction] 28.4 % Low 40.0 - 52.0 % [facility] Hemoglobin (Bld) [Mass/Vol] 8 g/dL Low 13.0 - 18.0 g/dL [facility] Interpretation and review of laboratory results Abnormal [facility] MCH (RBC) [Entitic mass] 23.7 pg Low 26. 0 - 34.0 pg [facility] MCHC (RBC) [Mass/Vol] 28.2 % Low 30.5 - 36.0 % [facility] MCV (RBC) [Entitic vol] 84.3 fL 77.0 - 99.0 fL [facility] Platelet mean volume (Bld) [Entitic vol] 9.1 fL 9.0 - 12.7 fL [facility] Platelets (Bld) [#/Vol] 405 10*3/uL 140 - 440 10*3/uL [facility] RBC (Bld) [#/Vol] 3.37 10*6/uL Low 4.40 - 5.9 0 10*6/uL [facility] WBC (Bld) [#/Vol] 13.1 10*3/uL High 3.6 - 10.7 10*3/uL [facility] CBC WITH AUTO DIFFERENTIALon 04-16-2025 Erythrocyte distribution width (RBC) [Ratio] 25.7 % High 11.5-15.0 [facility] Comment on above: Performed By: #### L [id number], [id number] ####Funeral Home Director: UNA ARCE ([id number])[facility] [place] [address] Hematocrit (Bld) [Volume fraction] 28.4 % Low 40.0-52.0 [facility] Comment on above: Performed By: #### L [id number], [id number] ####Funeral Home Director: UNA ARCE ([id number])[facility] [place] [address] Hemoglobin (Bld) [Mass/Vol] 8.0 g/dL Low 13.0-18.0 [facility] Comment on above: Performed By: #### L [id number], [id number] ####Funeral Home Director: UNA ARCE ([phone])[facility] (SBAB)[address] [place] [address] MCH (RBC) [Entitic mass] 23.7 pg Low 26.0-34.0 [facility] Comment on above: Performed By: #### L [id number], [id number] ####Funeral Home Director: UNA ARCE ([id number])[facility] [place] [address] MCHC 28.2 % Low 30.5-36.0 [facility] Comment on above: Performed By: #### L [id number], [id number] ####Funeral Home Director: UNA ARCE ([id number])[place] (SBHLAB)[address] MCV (RBC) [Entitic vol] 84.3 fL Normal 77.0-99.0 S [facility] Comment on above: Performed By: #### L [id number], [id number] ####Funeral Home Director: UNA ARCE ([id number])[facility] [place] (SB[facility])[address] Platelet mean volume (Bld) [Entitic vol] 9.1 fL Normal 9.0-12.7 [facility] Comment on above: Performed By: #### L [id number], [id number] ####Funeral Home Director: UNA ARCE ([id number])[facility] [place] (SBHLAB)[address] Platelets (Bld) [#/Vol] 405 10*3/uL Normal 140-440 [facility] Comment on above: Performed By: #### L [id number], [id number] ####Funeral Home Director: UNA ARCE ([id number])[place] (SBHLAB)[address] RBC (Bld) [#/Vol] 3.37 10*6/uL Low 4.40-5.90 [facility] Comment on above: Performed By: #### L [id number], [id number] ####Funeral Home Director: UNA ARCE ([id number])[facility] [place] (SBHLAB)[address] WBC (Bld) [#/Vol] 13.1 10*3/uL High 3.6-10.7 [facility] Comment on above: Performed By: #### L [id number], [id number] ####Funeral Home Director: UNA ARCE ([id number])[facility] [place] (SBHLAB)[address] COMPREHENSIVE METABOLIC PANE Anant 04-16-2025 Albumin [Mass/Vol] 2.2 g/dL Low 3.4-4.8 [facility] Comment on above: Performed By: #### L AB103, LAB17 ####Funeral Home Director: UNA ARCE ([id number])[facility] [place] (SBHLAB)[address] ALP [Catalytic activity/Vol] 55 U/L Normal 40-150 [facility] Comment on above: Performed By: #### L AB103, LAB17 ####Funeral Home Director: UNA ARCE ([id number])[facility] [place] ([facility])[address] ALT [Catalytic activity/Vol] 6 U/L Normal <40 [facility] Comment on above: Performed By: #### L AB103, LAB17 ####Funeral Home Director: UNA ARCE ([id number])[facility] [place] ([facility])[address] Anion gap [Moles/Vol] 10 mmol/L Normal 3-13 [facility] Comment on above: Performed By: #### L AB103, LAB17 ####Funeral Home Director: UNA ARCE ([id number])[facility] [place] ([facility])[address] AST [Catalytic activity/Vol] 23 U/L Normal <34 [facility] Comment on above: Performed By: #### L AB103, LAB17 ####Funeral Home Director: UNA ARCE ([id number])[facility] [place] ([facility])[address] Bilirubin [Mass/Vol] 0.5 mg/dL Normal <1.2 [facility] Comment on above: Performed By: #### L AB103, LAB17 ####Funeral Home Director: UNA ARCE ([id number])[facility] [place] ([facility])[address] Calcium [Mass/Vol] 8.2 mg/dL Low 8.8-10.0 [facility] Comment on above: Performed By: #### L AB103, LAB17 ####Funeral Home Director: UNA ARCE ([id number])[facility] [place] ([facility])[address] Chloride [Moles/Vol] 87 mmol/L Low 98-107 [facility] Comment on above: Performed By: #### L AB103, LAB17 ####Funeral Home Director: UNA ARCE ([id number])[facility] [place] ([facility])[address] CO2 [Moles/Vol] 43 mmol/L High 23-31 [facility] Comment on above: Performed By: #### L AB103, LAB17 ####Funeral Home Director: UNA ARCE ([id number])[facility] [place] ([facility])[address] Creatinine [Mass/Vol] 1.81 mg/dL High 0.72-1.25 [facility] Comment on above: Performed By: #### L AB103, LAB17 ####Funeral Home Director: UNA ARCE ([id number])[facility] (SBHLAB)[address] [place] [address] [place] GLOMERULAR FILTRATION RATE ML/MIN/1.73 SQ M.PREDICTED 35.3 mL/min/1.73m*2 Low >60.0 [facility] Comment on above: Result Comment: Calc ulation based on the Chronic Kidney Disease Epidemiology Collaboration (CKD-EPI) equation refit without adjustment for race Performed By: #### L AB103, LAB17 ####Funeral Home Director: UNA ARCE ([id number])[facility] [place] ([facility])[address] [place] [address] [place] Glucose [Mass/Vol] 114 mg/dL Normal 82-115 [facility] Comment on above: Performed By: #### L AB103, LAB17 ####Funeral Home Director: UNA ARCE ([id number])[facility] [place] (SBHLAB)[address] Potassium [Moles/Vol] 3.6 mmol/L Normal 3.5-5.1 [facility] Comment on above: Result Comment: [facility] potassium values may be up to 0.5 mmol/L lower than serum values. Performed By: #### L AB103, LAB17 ####Funeral Home Director: UNA ARCE ([id number])[facility] [place] (SB[facility])[address] Protein [Mass/Vol] 6.0 g/dL Low 6.4-8.3 [facility] Comment on above: Performed By: #### L AB103, LAB17 ####Funeral Home Director: UNA ARCE ([id number])[facility] ([facility])[address] Sodium [Moles/Vol] 140 mmol/L Normal 136-145 [facility] Comment on above: Performed By: #### L AB103, LAB17 ####Funeral Home Director: UNA ARCE ([id number])[facility] [place] (SBHLAB)[address] Urea nitrogen [Mass/Vol] 46 mg/dL High 9-23 [facility] Comment on above: Performed By: #### L AB103, LAB17 ####Funeral Home Director: UNA ARCE ([id number])[facility] (SB[facility])[address] Comprehensive metabolic 1998 panelon 04-16-2025 Albumin [Mass/Vol] 2.2 g/dL Low 3.4 - 4.8 g/dL [facility] ALP [Catalytic activity/Vol] 55 U/L 40 - 150 U/L [facility] ALT [Catalytic activity/Vol] 6 U/L NINF - 40 U/L [facility] Anion gap [Moles/Vol] 10 mmol/L 3 - 13 mmol/L [facility] AST [Catalytic activity/Vol] 23 U/L NINF - 34 U/L [facility] Bilirubin [Mass/Vol] 0.5 mg/dL NINF - 1.2 mg/dL [facility] Calcium [Mass/Vol] 8.2 mg/dL Low 8.8 - 10. 0 mg/dL [facility] Chloride [Moles/Vol] 87 mmol/L Low 98 - 10 7 mmol/L [facility] CO2 [Moles/Vol] 43 mmol/L High 23 - 31 mmol/L [facility] Creatinine [Mass/Vol] 1.81 mg/dL High 0.72 - 1.25 mg/dL [facility] GFR/1.73 sq M.predicted (S/P/Bld) [Vol rate/Area] 35.3 mL/min Low - PINF [facility] Glucose [Mass/Vol] 114 mg/dL 82 - 115 mg/dL [facility] Interpretation and review of laboratory results Abnormal [facility] Potassium [Moles/Vol] 3.6 mmol/L 3.5 - 5.1 mmol/L [facility] Protein [Mass/Vol] 6 g/dL Low 6.4 - 8.3 g/dL [facility] Sodium [Moles/Vol] 140 mmol/L 136 - 145 mmol/L [facility] Urea nitrogen [Mass/Vol] 46 mg/dL High 9 - 23 mg/d L [facility] Laboratory - Chemistry and C hemistry - challengeon 04-16-2025 Magnesium [Mass/Vol] 1.8 mg/dL 1.6 - 2 .6 mg/dL [facility] Laboratory - Hematology and Cell countson 04-16-2025 Anisocytosis Ql (Bld) Moderate Abnormal (none) [facility] Basophils (Bld) [#/Vol] 0.1 10*3/uL 0.0 - 0.2 10*3/uL [facility] Basophils/100 WBC (Bld) 1 % 0 - 2 % [facility] Elen cells LM Ql (Bld) Slight Abnormal (none) [facility] Eosinophils (Bld) [#/Vol] 0.5 10*3/uL 0.0 - 0.5 10*3/uL [facility] Eosinophils/100 WBC (Bld) 4 % 0 - 6 % [facility] Hypochromia Ql (Bld) Slight Abnormal (none) [facility] Lymphocytes (Bld) [#/Vol] 1.6 10*3/uL 1.0 - 4.3 10*3/uL [facility] Lymphocytes/100 WBC (Bld) 12 % Low 15 - 45 % [facility] Monocytes (Bld) [#/Vol] 0.9 10*3/uL 0.0 - 0.9 10*3/uL [facility] Monocytes/100 WBC (Bld) 7 % 5 - 13 % [facility] Neutrophils (Bld) [#/Vol] 9.8 10*3/uL High 1.8 - 7.5 10*3/uL [facility] Poikilocytosis LM Ql (Bld) Slight Abnormal (none) [facility] RBC morphology finding Nom (Bld) abnormal [facility] Segmented neutrophils/100 WBC (Bld) 75 % 38 - 82 % [facility] Variant lymphocytes (Bld) [#/Vol] 0.3 10*3/uL High NINF - 0.0 10*3/uL [facility] Variant lymphocytes/100 WBC (Bld) 2 % High NINF - 0 % [facility] MAGNESIUMon 04-16-2025 Magnesium [Mass/Vol] 1.8 mg/dL Normal 1.6-2.6 [facility] Comment on above: Result Comment: YARELI [place] COMMENTS:Higher values can be expected in females during menses. Performed By: #### L AB103, LAB17 ####Funeral Home Director: UNA ARCE ([id number])[facility] (SBHLAB)[address] MANUAL DIFFERENTIAL (CELLAVI BANDAR)on 04-16-2025 ANISOCYTOSIS PRESENCE IN BLOOD BY LIGHT MICROSCOPY Moderate Abnormal (none) [facility] Comment on above: Performed By: #### L [id number], [id number] ####Funeral Home Director: UNA ARCE ([id number])[facility] [place] ([facility])[address] BAND NEUTROPHILS TOTAL PER COUNTED LEUKOCYTES BY MANUAL COUNT Normal [facility] Comment on above: Performed By: #### L [id number], [id number] ####Funeral Home Director: UNA ARCE ([id number])[facility] (SBHLAB)[address] [place] [address] [place] BASOPHILS (10*3/UL) IN BLOOD-CELLAVISION 0.1 10*3/uL Normal 0.0-0.2 [facility] Comment on above: Performed By: #### L [id number], [id number] ####Funeral Home Director: UNA ARCE ([id number])[facility] [place] ([facility])[address] [place] [address] [place] BASOPHILS TOTAL PER COUNTED LEUKOCYTES BY MANUAL COUNT 1 Normal [facility] Comment on above: Performed By: #### L [id number], [id number] ####Funeral Home Director: UNA ARCE ([id number])[facility] [place] ([facility])[address] [place] [address] [place] BASOPHILS/100 LEUKOCYTES IN BLOOD-CELLAVISION 1 % Normal 0-2 [facility] Comment on above: Performed By: #### L [id number], [id number] ####Funeral Home Director: UNA ARCE ([id number])[facility] [place] ([facility])[address] [place] [address] [place] BLASTS TOTAL PER COUNTED LEUKOCYTES BY MANUAL COUNT Normal [facility] Comment on above: Performed By: #### L [id number], [id number] ####Funeral Home Director: UNA ARCE ([id number])[facility] [place] ([facility])[address] [place] [address] [place] ELEN CELLS PRESENCE IN BLOOD BY LIGHT MICROSCOPY Slight Abnormal (none) [facility] Comment on above: Performed By: #### L [id number], [id number] ####Funeral Home Director: UNA ARCE ([id number])[facility] [place] ([facility])[address] [place] [address] [place] EOSINOPHILS (10*3/UL) IN BLOOD-CELLAVISION 0.5 10*3/uL Normal 0.0-0.5 [facility] Comment on above: Performed By: #### L [id number], [id number] ####Funeral Home Director: UNA ARCE ([id number])[facility] [place] ([facility])[address] [place] [address] [place] EOSINOPHILS TOTAL PER COUNTED LEUKOCYTES BY MANUAL COUNT 4 High 0-1 [facility] Comment on above: Performed By: #### L [id number], [id number] ####Funeral Home Director: UNA ARCE ([id number])[facility] [place] ([facility])[address] [place] [address] [place] EOSINOPHILS/100 LEUKOCYTES IN BLOOD-CELLAVISION 4 % Normal 0-6 [facility] Comment on above: Performed By: #### L [id number], [id number] ####Funeral Home Director: UNA ARCE ([id number])[facility] [place] ([facility])[address] HYPOCHROMIA (PRESENCE) IN BLOOD BY LIGHT MICROSCOPY Slight Abnormal (none) [facility] Comment on above: Performed By: #### L [id number], [id number] ####Funeral Home Director: UNA ARCE ([id number])[facility] [place] ([facility])[address] LYMPHOCYTE VARIANT/100 LEUKOCYTES IN BLOOD- CELLAVISION 2 % High <=0 [facility] Comment on above: Performed By: #### L [id number], [id number] ####Funeral Home Director: UNA ARCE ([id number])[facility] [place] ([facility])[address] [place] [address] [place] LYMPHOCYTES (10*3/UL) IN BLOOD-CELLAVISION 1.6 10*3/uL Normal 1.0-4.3 [facility] Comment on above: Performed By: #### L [id number], [id number] ####Funeral Home Director: UNA ARCE ([id number])[facility] [place] ([facility])[address] [place] [address] [place] LYMPHOCYTES TOTAL PER COUNTED LEUKOCYTES BY MANUAL COUNT 12 Normal [facility] Comment on above: Performed By: #### L [id number], [id number] ####Funeral Home Director: UNA ARCE ([id number])[facility] [place] ([facility])[address] [place] [address] [place] LYMPHOCYTES/100 LEUKOCYTES IN BLOOD-CELLAVISION 12 % Low 15-45 [facility] Comment on above: Performed By: #### L [id number], [id number] ####Funeral Home Director: UNA ARCE ([id number])[facility] [place] ([facility])[address] [place] [address] [place] METAMYELOCYTES TOTAL PER COUNTED LEUKOCYTES BY MANUAL COUNT Normal [facility] Comment on above: Performed By: #### L [id number], [id number] ####Funeral Home Director: UNA ARCE ([id number])[facility] [place] ([facility])[address] [place] [address] [place] MONOCYTES (10*3/UL) IN BLOOD-CELLAVISION 0.9 10*3/uL Normal 0.0-0.9 [facility] Comment on above: Performed By: #### L [id number], [id number] ####Funeral Home Director: UNA ARCE ([id number])[facility] [place] ([facility])[address] [place] [address] [place] MONOCYTES TOTAL PER COUNTED LEUKOCYTES BY MANUAL COUNT 7 Normal [facility] Comment on above: Performed By: #### L [id number], [id number] ####Funeral Home Director: UNA ARCE ([id number])[facility] [place] ([facility])[address] [place] [address] [place] MONOCYTES/100 LEUKOCYTES IN BLOOD-LUCIANA 7 % Normal 5-13 [facility] Comment on above: Performed By: #### L [id number], [id number] ####Funeral Home Director: UNA MOHRCER ([id number])[facility] [place] ([facility])[address] [place] [address] [place] MYELOCYTES COUNTED BY MANUAL COUNT Normal [facility] Comment on above: Performed By: #### L [id number], [id number] ####Funeral Home Director: UNA ARCE ([id number])[facility] [place] ([facility])[address] [place] [address] [place] NEUTROPHILS TOTAL PER COUNTED LEUKOCYTES BY MANUAL COUNT 77 Normal [facility] Comment on above: Performed By: #### L [id number], [id number] ####Funeral Home Director: UNA ARCE ([id number])[facility] [place] ([facility])[address] POIKILOCYTOSIS (PRESENCE) IN BLOOD BY LIGHT MICROSCOPY Slight Abnormal (none) [facility] Comment on above: Performed By: #### L [id number], [id number] ####Funeral Home Director: UNA ARCE ([phone])[facility] [place] ([facility])[address] PROMYELOCYTES TOTAL PER COUNTED LEUKOCYTES BY MANUAL COUNT Normal [facility] Comment on above: Performed By: #### L [id number], [id number] ####Funeral Home Director: UNA ARCE ([id number])[facility] [place] (SBHL[facility])[address] [place] [address] [place] RBC MORPHOLOGY IN BLOOD abnormal Normal S [facility] Comment on above: Performed By: #### L [id number], [id number] ####Funeral Home Director: UNA ARCE ([id number])[facility] [place] ([facility])[address] [place] [address] [place] SEGMENTED NEUTROPHILS (10*3/UL) IN BLOOD-CELLAVISION 9.8 10*3/uL High 1.8-7.5 [facility] Comment on above: Performed By: #### L [id number], [id number] ####Funeral Home Director: UNA ARCE ([phone])[facility] [place] ([facility])[address] [place] [address] [place] SEGMENTED NEUTROPHILS/100 LEUKOCYTES-CE 75 % Normal 38-82 [facility] Comment on above: Performed By: #### L [id number], [id number] ####Funeral Home Director: UNA ARCE ([id number])[facility] [place] ([facility])[address] [place] [address] [place] UNCLASSIFIED CELLS TOTAL PER COUNTED LEUKOCYTES BY MANUAL COUNT Normal [facility] Comment on above: Performed By: #### L [id number], [id number] ####Funeral Home Director: UNA ARCE ([id number])[facility] (SB[facility])[address] VARIANT LYMPHOCYTES (10*3/UL) IN BLOOD-CELLAVISION 0.3 10*3/uL High <=0.0 [facility] Comment on above: Performed By: #### L [id number], [id number] ####Funeral Home Director: UNA MOHRCER ([id number])[facility] (SB[facility])[address] VARIANT LYMPHOCYTES TOTAL PER COUNTED LEUKOCYTES BY MANUAL COUNT 2 Normal [facility] Comment on above: Performed By: #### L [id number], [id number] ####Funeral Home Director: UNA ARCE ([id number])[facility] [place] [address] Magnesium [Mass/Vol]on 04-16 Interpretation and review of laboratory results Normal [facility] No Panel Informationon 04-16 [facility] Atypical Lymphocytes Manual 2 [facility] Basophils Manual 1 [facility] Eosinophils Manual 4 High 0 - 1 [facility] Interpretation and review of laboratory results Abnormal [facility] Lymphocytes Manual 12 [facility] Monocytes Manual 7 [facility] Neutrophils Manual 77 [facility] Nursing Noteon 04-16-2025 Nursing Note Normal [facility] Progress Noteon 04-16-2025 Progress Note Normal [facility] Progress Note Normal [facility] Progress Note Normal [facility] Progress Note Normal [facility] Progress Note Normal [facility] Progress Note Normal [facility] [id number] 04-15-2025 [id number] Normal [facility] Bacteria identified Anaer cx Nom (Unsp spec)on 04-15-2025 Interpretation and review of laboratory results Normal [facility] CBC W Auto Differential pane l (Bld)on 04-15-2025 Erythrocyte distribution width (RBC) [Ratio] 25.3 % High 11.5 - 15.0 % [facility] Hematocrit (Bld) [Volume fraction] 28 % Low 40.0 - 52.0 % [facility] Hemoglobin (Bld) [Mass/Vol] 7.8 g/dL Low 13.0 - 18.0 g/dL [facility] Interpretation and review of laboratory results Abnormal [facility] MCH (RBC) [Entitic mass] 23.4 pg Low 26. 0 - 34.0 pg [facility] MCHC (RBC) [Mass/Vol] 27.9 % Low 30.5 - 36.0 % [facility] MCV (RBC) [Entitic vol] 84.1 fL 77.0 - 99.0 fL [facility] Platelet mean volume (Bld) [Entitic vol] 9.1 fL 9.0 - 12.7 fL [facility] Platelets (Bld) [#/Vol] 332 10*3/uL 140 - 440 10*3/uL [facility] RBC (Bld) [#/Vol] 3.33 10*6/uL Low 4.40 - 5.9 0 10*6/uL [facility] WBC (Bld) [#/Vol] 12.4 10*3/uL High 3.6 - 10.7 10*3/uL [facility] CBC WITH AUTO DIFFERENTIALon 04-15-2025 Erythrocyte distribution width (RBC) [Ratio] 25.3 % High 11.5-15.0 [facility] Comment on above: Performed By: #### Gilbert [id number], [id number] ####Funeral Home Director: UNA ARCE ([phone])[facility])[address] [place] [address] Hematocrit (Bld) [Volume fraction] 28.0 % Low 40.0-52.0 [facility] Comment on above: Performed By: #### Gilbert [id number], [id number] ####Funeral Home Director: UNA ARCE ([phone])[facility])[address] [place] [address] Hemoglobin (Bld) [Mass/Vol] 7.8 g/dL Low 13.0-18.0 [facility] Comment on above: Performed By: #### L [id number], [id number] ####Funeral Home Director: UNA ARCE ([id number])[facility] [place]ZLU[facility] (SBHLAB)[address] MCH (RBC) [Entitic mass] 23.4 pg Low 26.0-34.0 [facility] Comment on above: Performed By: #### L [id number], [id number] ####Funeral Home Director: UNA ARCE ([phone])[facility]ENTERAngel SANCHEZNEW MEXICO [facility] IN[facility] AT L[facility] VEGASN (SBHLAB)[address] MCHC 27.9 % Low 30.5-36.0 [facility] Comment on above: Performed By: #### L [id number], [id number] ####Funeral Home Director: UNA ARCE ([phone])[facility]ENTERAngel SANCHEZCHRISTINAN (SBHLAB)[address] MCV (RBC) [Entitic vol] 84.1 fL Normal 77.0-99.0 S [facility] Comment on above: Performed By: #### L [id number], [id number] ####Funeral Home Director: UNA ARCE ([phone])[facility] SANCHEZCHRISTINAN (SBHLAB)[address] Platelet mean volume (Bld) [Entitic vol] 9.1 fL Normal 9.0-12.7 [facility] Comment on above: Performed By: #### L [id number], [id number] ####Funeral Home Director: UNA ARCE ([id number])[facility] SANCHEZCHRISTINAN (SBHLAB)[address] Platelets (Bld) [#/Vol] 332 10*3/uL Normal 140-440 [facility] Comment on above: Performed By: #### L [id number], [id number] ####Funeral Home Director: UNA ARCE ([id number])[facility] SANCHEZCHRISTINAN (SBHLAB)[address] RBC (Bld) [#/Vol] 3.33 10*6/uL Low 4.40-5.90 [facility] Comment on above: Performed By: #### L [id number], [id number] ####Funeral Home Director: UNA ARCE ([id number])[facility]Angel [facility] (SBHLAB)[address] WBC (Bld) [#/Vol] 12.4 10*3/uL High 3.6-10.7 [facility] Comment on above: Performed By: #### L [id number], [id number] ####Funeral Home Director: UNA ARCE ([phone])[facility]A [facility] (SBHLAB)[address] COMPREHENSIVE METABOLIC PANE Anant 04-15-2025 Albumin [Mass/Vol] 2.1 g/dL Low 3.4-4.8 [facility] Comment on above: Performed By: #### L AB103, LAB17 ####Funeral Home Director: UNA ARCE ([id number])[facility]ENTERAngel [facility] (SBHLAB)[address] ALP [Catalytic activity/Vol] 48 U/L Normal 40-150 [facility] Comment on above: Performed By: #### L AB103, LAB17 ####Funeral Home Director: UNA ARCE ([phone])[facility] (SB[facility])[address] ALT [Catalytic activity/Vol] U/L Normal <40 [facility] Comment on above: Performed By: #### L AB103, LAB17 ####Funeral Home Director: UNA ARCE ([id number])[facility]A [facility] (SBHLAB)[address] Anion gap [Moles/Vol] 9 mmol/L Normal 3-13 [facility] Comment on above: Performed By: #### L AB103, LAB17 ####Funeral Home Director: UNA ARCE ([id number])[facility] (SBHLAB)[address] [place] [address] [place] AST [Catalytic activity/Vol] 21 U/L Normal <34 [facility] Comment on above: Performed By: #### L AB103, LAB17 ####Funeral Home Director: UNA ARCE ([phone])[facility] (SBHLAB)[address] [place] [address] [place] Bilirubin [Mass/Vol] 0.6 mg/dL Normal <1.2 [facility] Comment on above: Performed By: #### L AB103, LAB17 ####Funeral Home Director: UNA ARCE ([phone])[facility]A [place] (SBHLAB)[address] Calcium [Mass/Vol] 8.2 mg/dL Low 8.8-10.0 [facility] Comment on above: Performed By: #### L AB103, LAB17 ####Funeral Home Director: UNA ARCE ([phone])[facility]A [place] (SBHLAB)[address] [place] [address] [place] Chloride [Moles/Vol] 90 mmol/L Low 98-107 [facility] Comment on above: Performed By: #### L AB103, LAB17 ####Funeral Home Director: UNA ARCE ([id number])[facility] [place] (SBHLAB)[address] [place] [address] [place] CO2 [Moles/Vol] 40 mmol/L High 23-31 [facility] Comment on above: Performed By: #### L AB103, LAB17 ####Funeral Home Director: UNA ARCE ([phone])[facility] [place] (SBHLAB)[address] [place] [address] [place] Creatinine [Mass/Vol] 1.58 mg/dL High 0.72-1.25 [facility] Comment on above: Performed By: #### L AB103, LAB17 ####Funeral Home Director: UNA ARCE ([id number])[facility]A [place] (SBHLAB)[address] GLOMERULAR FILTRATION RATE ML/MIN/1.73 SQ M.PREDICTED 41.6 mL/min/1.73m*2 Low >60.0 [facility] Comment on above: Result Comment: Calc ulation based on the Chronic Kidney Disease Epidemiology Collaboration (CKD-EPI) equation refit without adjustment for race Performed By: #### L AB103, LAB17 ####Funeral Home Director: UNA ARCE ([id number])[facility]ENTERA [facility]BNEW MEXICO [facility] AT L[facility]GASN (SBHLAB)[address] Glucose [Mass/Vol] 130 mg/dL High 82-115 [facility] Comment on above: Performed By: #### L 103, LAB17 ####Funeral Home Director: UNA ARCE ([phone])[facility]A [facility] (SBHLAB)[address] Potassium [Moles/Vol] 3.5 mmol/L Normal 3.5-5.1 [facility] Comment on above: Result Comment: [facility] potassium values may be up to 0.5 mmol/L lower than serum values. Performed By: #### L AB103, LAB17 ####Funeral Home Director: UNA ARCE ([id number])[facility]A [facility]BNEW MEXICO [facility]ASN (SBHLAB)[address] Protein [Mass/Vol] 5.7 g/dL Low 6.4-8.3 [facility] Comment on above: Performed By: #### L AB103, LAB17 ####Funeral Home Director: UNA ARCE ([id number])[facility]A [facility]BNEW [facility]N (SBHLAB)[address] [place] [address] [place] Sodium [Moles/Vol] 139 mmol/L Normal 136-145 [facility] Comment on above: Performed By: #### L AB103, LAB17 ####Funeral Home Director: UNA ARCE ([phone])[facility] (SBHLAB)[address] [place] [address] [place] Urea nitrogen [Mass/Vol] 43 mg/dL High 9-23 [facility] Comment on above: Performed By: #### L AB103, LAB17 ####Funeral Home Director: UNA ARCE ([phone])[facility] (SB[facility])[address] [place] [address] Comprehensive metabolic 1998 panelon 04-15-2025 Albumin [Mass/Vol] 2.1 g/dL Low 3.4 - 4.8 g/dL [facility] ALP [Catalytic activity/Vol] 48 U/L 40 - 150 U/L [facility] ALT [Catalytic activity/Vol] U/L NINF - 40 U/L [facility] Anion gap [Moles/Vol] 9 mmol/L 3 - 13 mmol/L [facility] AST [Catalytic activity/Vol] 21 U/L NINF - 34 U/L [facility] Bilirubin [Mass/Vol] 0.6 mg/dL NINF - 1.2 mg/dL [facility] Calcium [Mass/Vol] 8.2 mg/dL Low 8.8 - 10. 0 mg/dL [facility] Chloride [Moles/Vol] 90 mmol/L Low 98 - 10 7 mmol/L [facility] CO2 [Moles/Vol] 40 mmol/L High 23 - 31 mmol/L [facility] Creatinine [Mass/Vol] 1.58 mg/dL High 0.72 - 1.25 mg/dL [facility] GFR/1.73 sq M.predicted (S/P/Bld) [Vol rate/Area] 41.6 mL/min Low - PINF [facility] Glucose [Mass/Vol] 130 mg/dL High 82 - 115 mg/dL [facility] Interpretation and review of laboratory results Abnormal [facility] Potassium [Moles/Vol] 3.5 mmol/L 3.5 - 5.1 mmol/L [facility] Protein [Mass/Vol] 5.7 g/dL Low 6.4 - 8.3 g/dL [facility] Sodium [Moles/Vol] 139 mmol/L 136 - 145 mmol/L [facility] Urea nitrogen [Mass/Vol] 43 mg/dL High 9 - 23 mg/d L [facility] Laboratory - Chemistry and C hemistry - challengeon 04-15-2025 Magnesium [Mass/Vol] 1.8 mg/dL 1.6 - 2 .6 mg/dL [facility] Laboratory - Hematology and Cell countson 04-15-2025 Anisocytosis Ql (Bld) Moderate Abnormal (none) [facility] Basophils (Bld) [#/Vol] 0.2 10*3/uL 0.0 - 0.2 10*3/uL [facility] Basophils/100 WBC (Bld) 2 % 0 - 2 % [facility] Eosinophils (Bld) [#/Vol] 0.1 10*3/uL 0.0 - 0.5 10*3/uL [facility] Eosinophils/100 WBC (Bld) 1 % 0 - 6 % [facility] Hypochromia Ql (Bld) Moderate Abnormal (none) [facility] Lymphocytes (Bld) [#/Vol] 1.2 10*3/uL 1.0 - 4.3 10*3/uL [facility] Lymphocytes/100 WBC (Bld) 10 % Low 15 - 45 % [facility] Monocytes (Bld) [#/Vol] 1.6 10*3/uL High 0.0 - 0.9 10*3/uL [facility] Monocytes/100 WBC (Bld) 13 % 5 - 13 % [facility] Neutrophils (Bld) [#/Vol] 9.3 10*3/uL High 1.8 - 7.5 10*3/uL [facility] Poikilocytosis LM Ql (Bld) Slight Abnormal (none) [facility] RBC morphology finding Nom (Bld) abnormal [facility] Segmented neutrophils/100 WBC (Bld) 75 % 38 - 82 % [facility] Stomatocytes LM Ql (Bld) Slight Abnormal (none) [facility] Laboratory - Microbiology an d Antimicrobial susceptibilityon 04-15-2025 Bacteria identified Anaer cx Nom (Unsp spec) No growth at 5 days [facility] Lower GI hemoglobin spec 1 I A Ql (Stl)Ordered By: Haroldo Alvarez on 04-15-2025 Fecal occult blood Negative Negative [facility] Interpretation and review of laboratory results Normal [facility] MAGNESIUMon 04-15-2025 Magnesium [Mass/Vol] 1.8 mg/dL Normal 1.6-2.6 [facility] Comment on above: Result Comment: YARELI [place] COMMENTS:Higher values can be expected in females during menses. Performed By: #### L AB103, LAB17 ####Funeral Home Director: UNA BERMUDEZPEDRO ([phone])[facility] [place] (SBHLAB)[address] [place] [address] [place] MANUAL DIFFERENTIAL (CELLAVI BANDAR)on 04-15-2025 ANISOCYTOSIS PRESENCE IN BLOOD BY LIGHT MICROSCOPY Moderate Abnormal (none) [facility] Comment on above: Performed By: #### L [id number], [id number] ####Funeral Home Director: UNA BERMUDEZPEDRO ([id number])[facility] [place] (SBHLAB)[address] BAND NEUTROPHILS TOTAL PER COUNTED LEUKOCYTES BY MANUAL COUNT Normal [facility] Comment on above: Performed By: #### L [id number], [id number] ####Funeral Home Director: UNA BERMUDEZPEDRO ([id number])[facility] [place] (SBHLAB)[address] [place] [address] [place] BASOPHILS (10*3/UL) IN BLOOD-CELLAVISION 0.2 10*3/uL Normal 0.0-0.2 [facility] Comment on above: Performed By: #### L [id number], [id number] ####Funeral Home Director: UNA ARCE ([id number])[facility] [place] (SBHLAB)[address] [place] [address] [place] BASOPHILS TOTAL PER COUNTED LEUKOCYTES BY MANUAL COUNT 2 Normal [facility] Comment on above: Performed By: #### L [id number], [id number] ####Funeral Home Director: UNA STAUFFERMELANIE ([phone])[facility] [place] (SBHLAB)[address] [place] [address] [place] BASOPHILS/100 LEUKOCYTES IN BLOOD-CELLAVISION 2 % Normal 0-2 [facility] Comment on above: Performed By: #### L [id number], [id number] ####Funeral Home Director: UNA STAUFFERMELANIE ([phone])[facility] [place] (SBHLAB)[address] [place] [address] [place] BLASTS TOTAL PER COUNTED LEUKOCYTES BY MANUAL COUNT Normal [facility] Comment on above: Performed By: #### L [id number], [id number] ####Funeral Home Director: UNA ARCE ([id number])[facility] [place] (SBHLAB)[address] [place] [address] [place] EOSINOPHILS (10*3/UL) IN BLOOD-CELLAVISION 0.1 10*3/uL Normal 0.0-0.5 [facility] Comment on above: Performed By: #### L [id number], [id number] ####Funeral Home Director: UNA ARCE ([id number])[facility] [place] (SBHLAB)[address] [place] [address] [place] EOSINOPHILS TOTAL PER COUNTED LEUKOCYTES BY MANUAL COUNT 1 Normal 0-1 [facility] Comment on above: Performed By: #### L [id number], [id number] ####Funeral Home Director: UAN ARCE ([id number])[facility] [place] (SBHLAB)[address] [place] [address] [place] EOSINOPHILS/100 LEUKOCYTES IN BLOOD-CELLAVISION 1 % Normal 0-6 [facility] Comment on above: Performed By: #### L [id number], [id number] ####Funeral Home Director: UNA ARCE ([id number])[facility] [place] (SBHLAB)[address] HYPOCHROMIA (PRESENCE) IN BLOOD BY LIGHT MICROSCOPY Moderate Abnormal (none) [facility] Comment on above: Performed By: #### L [id number], [id number] ####Funeral Home Director: UNA ARCE ([id number])[facility] [place] (SBHLAB)[address] [place] [address] [place] LYMPHOCYTES (10*3/UL) IN BLOOD-CELLAVISION 1.2 10*3/uL Normal 1.0-4.3 [facility] Comment on above: Performed By: #### L [id number], [id number] ####Funeral Home Director: UNA ARCE ([id number])[facility] [place] (SBHLAB)[address] [place] [address] [place] LYMPHOCYTES TOTAL PER COUNTED LEUKOCYTES BY MANUAL COUNT 10 Normal [facility] Comment on above: Performed By: #### L [id number], [id number] ####Funeral Home Director: UNA ARCE ([id number])[facility] [place] (SBHLAB)[address] [place] [address] [place] LYMPHOCYTES/100 LEUKOCYTES IN BLOOD-CELLAVISION 10 % Low 15-45 [facility] Comment on above: Performed By: #### L [id number], [id number] ####Funeral Home Director: UNA ARCE ([id number])[facility] [place] (SBHLAB)[address] [place] [address] [place] METAMYELOCYTES TOTAL PER COUNTED LEUKOCYTES BY MANUAL COUNT [facility] Comment on above: Performed By: #### L [id number], [id number] ####Funeral Home Director: UNA STAUFFERMELANIE ([id number])[facility] [place] (SBHLAB)[address] [place] [address] [place] MONOCYTES (10*3/UL) IN BLOOD-CELLAVISION 1.6 10*3/uL High 0.0-0.9 [facility] Comment on above: Performed By: #### L [id number], [id number] ####Funeral Home Director: UNA ARCE ([id number])[facility] [place] (SBHLAB)[address] [place] [address] [place] MONOCYTES TOTAL PER COUNTED LEUKOCYTES BY MANUAL COUNT 13 Normal [facility] Comment on above: Performed By: #### L [id number], [id number] ####Funeral Home Director: UNA ARCE ([id number])[facility] [place] (SBHLAB)[address] [place] [address] [place] MONOCYTES/100 LEUKOCYTES IN BLOOD-LUCIANA 13 % Normal 5-13 [facility] Comment on above: Performed By: #### L [id number], [id number] ####Funeral Home Director: UNA ARCE ([id number])[facility] [place] (SBHLAB)[address] [place] [address] [place] MYELOCYTES COUNTED BY MANUAL COUNT [facility] Comment on above: Performed By: #### L [id number], [id number] ####Funeral Home Director: UNA ARCE ([phone])[facility] [place] (SBHLAB)[address] NEUTROPHILS TOTAL PER COUNTED LEUKOCYTES BY MANUAL COUNT 77 [facility] Comment on above: Performed By: #### L [id number], [id number] ####Funeral Home Director: UNA ARCE ([phone])[facility] [place] (SBHLAB)[address] POIKILOCYTOSIS (PRESENCE) IN BLOOD BY LIGHT MICROSCOPY Slight Abnormal (none) [facility] Comment on above: Performed By: #### L [id number], [id number] ####Funeral Home Director: UNA ARCE ([phone])[facility] [place] (SB[facility])[address] PROMYELOCYTES TOTAL PER COUNTED LEUKOCYTES BY MANUAL COUNT [facility] Comment on above: Performed By: #### L [id number], [id number] ####Funeral Home Director: UNA ARCE ([id number])[facility] [place] (SBHLAB)[address] RBC MORPHOLOGY IN BLOOD abnormal Normal S [facility] Comment on above: Performed By: #### L [id number], [id number] ####Funeral Home Director: UNA ARCE ([phone])[facility] [place] (SBHLAB)[address] [place] [address] [place] SEGMENTED NEUTROPHILS (10*3/UL) IN BLOOD-CELLAVISION 9.3 10*3/uL High 1.8-7.5 [facility] Comment on above: Performed By: #### L [id number], [id number] ####Funeral Home Director: UNA ARCE ([id number])[facility] [place] (SB[facility]AB)[address] [place] [address] [place] SEGMENTED NEUTROPHILS/100 LEUKOCYTES-CE 75 % Normal 38-82 [facility] Comment on above: Performed By: #### L [id number], [id number] ####Funeral Home Director: UNA ARCE ([id number])[facility]ENTERAngel [place] (SBHLAB)[address] STOMATOCYTES IN BLOOD BY LIGHT MICROSCOPY Slight Abnormal (none) [facility] Comment on above: Performed By: #### L [id number], [id number] ####Funeral Home Director: UNA ARCE ([id number])[facility]ENTERAngel [facility] (SBHLAB)[address] UNCLASSIFIED CELLS TOTAL PER COUNTED LEUKOCYTES BY MANUAL COUNT Normal [facility] Comment on above: Performed By: #### L [id number], [id number] ####Funeral Home Director: UNA ARCE ([id number])[facility]ITALMar[facility] (SBAB)[address] VARIANT LYMPHOCYTES TOTAL PER COUNTED LEUKOCYTES BY MANUAL COUNT Normal [facility] Comment on above: Performed By: #### L [id number], [id number] ####Funeral Home Director: UNA ARCE ([id number])[facility]PITALMar[facility] ([facility])[address] Magnesium [Mass/Vol]on 04-15 Interpretation and review of laboratory results Normal [facility] No Panel Informationon 04-15 Basophils Manual 2 [facility] Eosinophils Manual 1 0 - 1 [facility] Interpretation and review of laboratory results Abnormal [facility] Lymphocytes Manual 10 [facility] Monocytes Manual 13 [facility] Neutrophils Manual 77 [facility] OCCULT BLOOD, STOOLon 2024 OCCULT BLOOD, STOOL FECAL OCCULT, STOOL Reference Negative Negative ORDER COMMENTS: Methodology: Immunoassay Normal [facility] Comment on above: Performed By: #### L [id number] ####Funeral Home Director: UNA ARCE ([id number])[facility]ITAL[facility] (SB[facility])[address] Progress Noteon 04-15-2025 Progress Note Normal [facility] Progress Note Normal [facility] Progress Note Normal [facility] Progress Note Normal [facility] XR Chest Single viewon 04-15 [facility] Radiology Study observation (narrative) Lynette worthington [id number] 04-14-2025 [id number] Normal [facility] Bacteria identified Anaer cx Nom (Unsp spec)on 04-14-2025 Interpretation and review of laboratory results Normal [facility] CBC W Auto Differential pane l (Bld)on 04-14-2025 Erythrocyte distribution width (RBC) [Ratio] 25.4 % High 11.5 - 15.0 % [facility] Hematocrit (Bld) [Volume fraction] 27.3 % Low 40.0 - 52.0 % [facility] Hemoglobin (Bld) [Mass/Vol] 7.6 g/dL Low 13.0 - 18.0 g/dL [facility] MCH (RBC) [Entitic mass] 23.2 pg Low 26. 0 - 34.0 pg [facility] MCHC (RBC) [Mass/Vol] 27.8 % Low 30.5 - 36.0 % [facility] MCV (RBC) [Entitic vol] 83.5 fL 77.0 - 99.0 fL [facility] Platelet mean volume (Bld) [Entitic vol] 8.9 fL Low 9.0 - 12.7 fL [facility] Platelets (Bld) [#/Vol] 293 10*3/uL 140 - 440 10*3/uL [facility] RBC (Bld) [#/Vol] 3.27 10*6/uL Low 4.40 - 5.9 0 10*6/uL [facility] WBC (Bld) [#/Vol] 12.3 10*3/uL High 3.6 - 10.7 10*3/uL [facility] CBC WITH AUTO DIFFERENTIALon 04-14-2025 Erythrocyte distribution width (RBC) [Ratio] 25.4 % High 11.5-15.0 [facility] Comment on above: Performed By: #### L [id number], [id number] ####Funeral Home Director: UNA ARCE ([id number])[facility]NETTE ESCOTO (SBAB)[address] [place] [address] Hematocrit (Bld) [Volume fraction] 27.3 % Low 40.0-52.0 [facility] Comment on above: Performed By: #### L [id number], [id number] ####Funeral Home Director: UNA ARCE ([id number])[facility]TE SANCHEZLU[place] (SBHLAB)[address] Hemoglobin (Bld) [Mass/Vol] 7.6 g/dL Low 13.0-18.0 [facility] Comment on above: Performed By: #### L [id number], [id number] ####Funeral Home Director: UNA ARCE ([phone])[facility]ENTERAngel [facility]Mar[facility] ([facility])[address] MCH (RBC) [Entitic mass] 23.2 pg Low 26.0-34.0 [facility] Comment on above: Performed By: #### L [id number], [id number] ####Funeral Home Director: UNA ARCE ([id number])[facility]ENTERAngel SANCHEZNEW MEXICO BEHAVIOR[facility] HEALTH INSTITUTE AT LAS VEGASMarisol (SB[facility]AB)[address] MCHC 27.8 % Low 30.5-36.0 [facility] Comment on above: Performed By: #### L [id number], [id number] ####Funeral Home Director: UNA ARCE ([id number])[facility] CENTERAngel [place] (SBHLAB)[address] MCV (RBC) [Entitic vol] 83.5 fL Normal 77.0-99.0 [facility] Comment on above: Performed By: #### L [id number], [id number] ####Funeral Home Director: UNA ARCE ([id number])[facility] CENTERAngel [place] (SBHLAB)[address] Platelet mean volume (Bld) [Entitic vol] 8.9 fL Low 9.0-12.7 [facility] Comment on above: Performed By: #### L [id number], [id number] ####Funeral Home Director: UNA ARCE ([id number])[facility] [place] (SB[facility])[address] Platelets (Bld) [#/Vol] 293 10*3/uL Normal 140-440 [facility] Comment on above: Performed By: #### L [id number], [id number] ####Funeral Home Director: UNA ARCE ([id number])[facility] [place] ([facility])[address] RBC (Bld) [#/Vol] 3.27 10*6/uL Low 4.40-5.90 [facility] Comment on above: Performed By: #### L [id number], [id number] ####Funeral Home Director: UNA ARCE ([id number])[facility] [place] (SBHLAB)[address] WBC (Bld) [#/Vol] 12.3 10*3/uL High 3.6-10.7 [facility] Comment on above: Performed By: #### L [id number], [id number] ####Funeral Home Director: UNA ARCE ([id number])[facility] (SB[facility])[address] COMPREHENSIVE METABOLIC PANE Anant 04-14-2025 Albumin [Mass/Vol] 2.1 g/dL Low 3.4-4.8 [facility] Comment on above: Performed By: #### L [id number], [id number] ####Funeral Home Director: UNA ARCE ([id number])[facility] [place] (SBHLAB)[address] ALP [Catalytic activity/Vol] 47 U/L Normal 40-150 [facility] Comment on above: Performed By: #### L [id number], [id number] ####Funeral Home Director: UNA ARCE ([id number])[facility] [place] (SB[facility])[address] ALT [Catalytic activity/Vol] U/L Normal <40 [facility] Comment on above: Performed By: #### L [id number], [id number] ####Funeral Home Director: UNA ARCE ([id number])[facility] [place] ([facility])[address] Anion gap [Moles/Vol] 9 mmol/L Normal 3-13 [facility] Comment on above: Performed By: #### L AB103, [id number] ####Funeral Home Director: UNA ARCE ([id number])[facility] ([facility])[address] AST [Catalytic activity/Vol] 19 U/L Normal <34 [facility] Comment on above: Performed By: #### L AB103, [id number] ####Funeral Home Director: UNA ARCE ([id number])[facility] [place] ([facility])[address] Bilirubin [Mass/Vol] 0.6 mg/dL Normal <1.2 [facility] Comment on above: Performed By: #### L AB103, [id number] ####Funeral Home Director: UNA ARCE ([phone])[facility] ([facility])[address] Calcium [Mass/Vol] 8.1 mg/dL Low 8.8-10.0 [facility] Comment on above: Performed By: #### L AB103, LAB17 ####Funeral Home Director: UNA ARCE ([id number])[facility] [place] ([facility])[address] Chloride [Moles/Vol] 92 mmol/L Low 98-107 [facility] Comment on above: Performed By: #### L AB103, LAB17 ####Funeral Home Director: UNA ARCE ([id number])[facility] [place] ([facility])[address] CO2 [Moles/Vol] 39 mmol/L High 23-31 [facility] Comment on above: Performed By: #### L AB103, LAB17 ####Funeral Home Director: UNA ARCE ([id number])[facility] Creatinine [Mass/Vol] 1.43 mg/dL High 0.72-1.25 [facility] Comment on above: Performed By: #### L AB103, LAB17 ####Funeral Home Director: UNA ARCE ([id number])[facility] ([facility] GLOMERULAR FILTRATION RATE ML/MIN/1.73 SQ M.PREDICTED 46.8 mL/min/1.73m*2 Low >60.0 [facility] Comment on above: Result Comment: Calc ulation based on the Chronic Kidney Disease Epidemiology Collaboration (CKD-EPI) equation refit without adjustment for race Performed By: #### L AB103, LAB17 ####Funeral Home Director: UNA ARCE ([id number])[facility] (SBHLAB)[address] Glucose [Mass/Vol] 97 mg/dL Normal 82-115 [facility] Comment on above: Performed By: #### L AB103, LAB17 ####Funeral Home Director: UNA ARCE ([phone])[facility] Potassium [Moles/Vol] 3.8 mmol/L Normal 3.5-5.1 [facility] Comment on above: Result Comment: [facility] potassium values may be up to 0.5 mmol/L lower than serum values. Performed By: #### L AB103, LAB17 ####Funeral Home Director: UNA ARCE ([phone])[facility] (SBHLAB)[address] [place] [address] [place] Protein [Mass/Vol] 5.7 g/dL Low 6.4-8.3 [facility] Comment on above: Performed By: #### L AB103, LAB17 ####Funeral Home Director: UNA ARCE ([phone])[facility] (SBHLAB)[address] Sodium [Moles/Vol] 140 mmol/L Normal 136-145 [facility] Comment on above: Performed By: #### L AB103, LAB17 ####Funeral Home Director: UNA MOHRCER ([phone])[facility] [place] (SBHLAB)[address] Urea nitrogen [Mass/Vol] 39 mg/dL High 9-23 [facility] Comment on above: Performed By: #### L AB103, LAB17 ####Funeral Home Director: UNA STAUFFERMELANIE ([id number])[facility] [place] (SBHLAB)[address] Comprehensive metabolic 1998 panelon 04-14-2025 Albumin [Mass/Vol] 2.1 g/dL Low 3.4 - 4.8 g/dL [facility] ALP [Catalytic activity/Vol] 47 U/L 40 - 150 U/L [facility] ALT [Catalytic activity/Vol] U/L NINF - 40 U/L [facility] Anion gap [Moles/Vol] 9 mmol/L 3 - 13 mmol/L [facility] AST [Catalytic activity/Vol] 19 [facility]L [facility] Bilirubin [Mass/Vol] 0.6 mg/dL NINF - 1.2 mg/dL [facility] Calcium [Mass/Vol] 8.1 mg/dL Low 8.8 - 10. 0 mg/dL [facility] Chloride [Moles/Vol] 92 mmol/L Low 98 - 10 7 mmol/L [facility] CO2 [Moles/Vol] 39 mmol/L High 23 - 31 mmol/L [facility] Creatinine [Mass/Vol] 1.43 mg/dL High 0.72 - 1.25 mg/dL [facility] GFR/1.73 sq M.predicted (S/P/Bld) [Vol rate/Area] 46.8 mL/min Low - PINF [facility] Glucose [Mass/Vol] 97 mg/dL 82 - 115 mg/dL [facility] Interpretation and review of laboratory results Abnormal [facility] Potassium [Moles/Vol] 3.8 mmol/L 3.5 - 5.1 mmol/L [facility] Protein [Mass/Vol] 5.7 g/dL Low 6.4 - 8.3 g/dL [facility] Sodium [Moles/Vol] 140 mmol/L 136 - 145 mmol/L [facility] Urea nitrogen [Mass/Vol] 39 mg/dL High 9 - 23 mg/d L [facility] Consulton 04-14-2025 Consult Normal [facility] ECG 12-LEADon 04-14-2025 ECG 12-LEAD IMPRESSION: Sinus arrhythmia LEFT ANTERIOR FASCICULAR BLOCK MULTIPLE ATRIAL PREMATURE COMPLEXES Compared to ECG 04/05/2025 15:59:31 No significant changes Electronically Signed On 04-14-2025 07:12:58 EDT by Ronal Maurice Normal [facility] Laboratory - Chemistry and C hemistry - challengeon 04-14-2025 Magnesium [Mass/Vol] 1.9 mg/dL 1.6 - 2 .6 mg/dL [facility] Laboratory - Hematology and Cell countson 04-14-2025 Anisocytosis Ql (Bld) Slight Abnormal (none) [facility] Basophils (Bld) [#/Vol] 0.1 10*3/uL 0.0 - 0.2 10*3/uL [facility] Basophils/100 WBC (Bld) 1 % 0 - 2 % [facility] Eosinophils (Bld) [#/Vol] 0.4 10*3/uL 0.0 - 0.5 10*3/uL [facility] Eosinophils/100 WBC (Bld) 3 % 0 - 6 % [facility] Hypochromia Ql (Bld) Moderate Abnormal (none) [facility] Lymphocytes (Bld) [#/Vol] 0.9 10*3/uL Low 1.0 - 4.3 10*3/uL [facility] Lymphocytes/100 WBC (Bld) 7 % Low 15 - 45 % [facility] Monocytes (Bld) [#/Vol] 1.8 10*3/uL High 0.0 - 0.9 10*3/uL [facility] Monocytes/100 WBC (Bld) 15 % High 5 - 13 % [facility] Neutrophils (Bld) [#/Vol] 9.1 10*3/uL High 1.8 - 7.5 10*3/uL [facility] Poikilocytosis LM Ql (Bld) Slight Abnormal (none) [facility] RBC morphology finding Nom (Bld) abnormal [facility] Segmented neutrophils/100 WBC (Bld) 74 % 38 - 82 % [facility] Stomatocytes LM Ql (Bld) Moderate Abnormal (none) [facility] Variant lymphocytes (Bld) [#/Vol] 0.1 10*3/uL High NINF - 0.0 10*3/uL [facility] Variant lymphocytes/100 WBC (Bld) 1 % High NINF - 0 % [facility] Laboratory - Microbiology an d Antimicrobial susceptibilityon 04-14-2025 Bacteria identified Anaer cx Nom (Unsp spec) No growth at 5 days [facility] MAGNESIUMon 04-14-2025 Magnesium [Mass/Vol] 1.9 mg/dL Normal 1.6-2.6 [facility] Comment on above: Result Comment: YARELI [place] COMMENTS:Higher values can be expected in females during menses. Performed By: #### L AB103, LAB17 ####Funeral Home Director: UNA ARCE ([id number])[facility] (SBAB)[address] [place] [address] MANUAL DIFFERENTIAL (CELLAVI BANDAR)on 04-14-2025 ANISOCYTOSIS PRESENCE IN BLOOD BY LIGHT MICROSCOPY Slight Abnormal (none) [facility] Comment on above: Performed By: #### L [id number], [id number] ####Funeral Home Director: UNA ARCE ([id number])[facility] (SBAB)[address] [place] [address] BAND NEUTROPHILS TOTAL PER COUNTED LEUKOCYTES BY MANUAL COUNT Normal [facility] Comment on above: Performed By: #### L [id number], [id number] ####Funeral Home Director: UNA ARCE ([id number])[facility] (SBHLAB)[address] BASOPHILS (10*3/UL) IN BLOOD-CELLAVISION 0.1 10*3/uL Normal 0.0-0.2 [facility] Comment on above: Performed By: #### L [id number], [id number] ####Funeral Home Director: UNA ARCE ([id number])[facility] [place] (SBHLAB)[address] [place] [address] [place] BASOPHILS TOTAL PER COUNTED LEUKOCYTES BY MANUAL COUNT 1 Normal [facility] Comment on above: Performed By: #### L [id number], [id number] ####Funeral Home Director: UNA MOHRCER ([id number])[facility] [place] (SBHLAB)[address] [place] [address] [place] BASOPHILS/100 LEUKOCYTES IN BLOOD-CELLAVISION 1 % Normal 0-2 [facility] Comment on above: Performed By: #### L [id number], [id number] ####Funeral Home Director: UNA MOHRCER ([id number])[facility] [place] ([facility])[address] [place] [address] [place] BLASTS TOTAL PER COUNTED LEUKOCYTES BY MANUAL COUNT Normal [facility] Comment on above: Performed By: #### L [id number], [id number] ####Funeral Home Director: UNA MOHRCER ([phone])[facility] [place] ([facility])[address] [place] [address] [place] EOSINOPHILS (10*3/UL) IN BLOOD-CELLAVISION 0.4 10*3/uL Normal 0.0-0.5 [facility] Comment on above: Performed By: #### L [id number], [id number] ####Funeral Home Director: UNA MOHRCER ([id number])[facility] [place] (SB[facility])[address] [place] [address] [place] EOSINOPHILS TOTAL PER COUNTED LEUKOCYTES BY MANUAL COUNT 3 High 0-1 [facility] Comment on above: Performed By: #### L [id number], [id number] ####Funeral Home Director: UNA MOHRCER ([phone])[facility] [place] ([facility])[address] [place] [address] [place] EOSINOPHILS/100 LEUKOCYTES IN BLOOD-CELLAVISION 3 % Normal 0-6 [facility] Comment on above: Performed By: #### L [id number], [id number] ####Funeral Home Director: UNA MOHRCER ([id number])[facility] [place] (SBHLAB)[address] [place] [address] [place] HYPOCHROMIA (PRESENCE) IN BLOOD BY LIGHT MICROSCOPY Moderate Abnormal (none) [facility] Comment on above: Performed By: #### L [id number], [id number] ####Funeral Home Director: UNA ARCE ([id number])[facility] [place] (SB[facility])[address] [place] [address] [place] LYMPHOCYTE VARIANT/100 LEUKOCYTES IN BLOOD- CELLAVISION 1 % High <=0 [facility] Comment on above: Performed By: #### L [id number], [id number] ####Funeral Home Director: UNA ARCE ([id number])[facility] [place] ([facility])[address] [place] [address] [place] LYMPHOCYTES (10*3/UL) IN BLOOD-CELLAVISION 0.9 10*3/uL Low 1.0-4.3 [facility] Comment on above: Performed By: #### L [id number], [id number] ####Funeral Home Director: UNA ARCE ([id number])[facility] [place] (SB[facility])[address] [place] [address] [place] LYMPHOCYTES TOTAL PER COUNTED LEUKOCYTES BY MANUAL COUNT 7 Normal [facility] Comment on above: Performed By: #### L [id number], [id number] ####Funeral Home Director: UNA ARCE ([id number])[facility] [place] ([facility])[address] [place] [address] [place] LYMPHOCYTES/100 LEUKOCYTES IN BLOOD-CELLAVISION 7 % Low 15-45 [facility] Comment on above: Performed By: #### L [id number], [id number] ####Funeral Home Director: UNA ARCE ([id number])[facility] [place] ([facility])[address] [place] [address] [place] METAMYELOCYTES TOTAL PER COUNTED LEUKOCYTES BY MANUAL COUNT Normal [facility] Comment on above: Performed By: #### L [id number], [id number] ####Funeral Home Director: UNA ARCE ([id number])[facility] [place] (SBHLAB)[address] [place] [address] [place] MONOCYTES (10*3/UL) IN BLOOD-CELLAVISION 1.8 10*3/uL High 0.0-0.9 [facility] Comment on above: Performed By: #### L [id number], [id number] ####Funeral Home Director: UNA MOHRCER ([id number])[facility] [place] (SBHLAB)[address] [place] [address] [place] MONOCYTES TOTAL PER COUNTED LEUKOCYTES BY MANUAL COUNT 15 Normal [facility] Comment on above: Performed By: #### L [id number], [id number] ####Funeral Home Director: UNA ARCE ([id number])[facility] [place] ([facility])[address] [place] [address] [place] MONOCYTES/100 LEUKOCYTES IN BLOOD-LUCIANA 15 % High 5-13 [facility] Comment on above: Performed By: #### L [id number], [id number] ####Funeral Home Director: UNA ARCE ([id number])[facility] [place] ([facility])[address] MYELOCYTES COUNTED BY MANUAL COUNT [facility] Comment on above: Performed By: #### L [id number], [id number] ####Funeral Home Director: UNA ARCE ([id number])[facility] [place] ([facility])[address] [place] [address] [place] NEUTROPHILS TOTAL PER COUNTED LEUKOCYTES BY MANUAL COUNT 75 Normal [facility] Comment on above: Performed By: #### L [id number], [id number] ####Funeral Home Director: UNA ARCE ([id number])[facility] [place] ([facility])[address] [place] [address] [place] POIKILOCYTOSIS (PRESENCE) IN BLOOD BY LIGHT MICROSCOPY Slight Abnormal (none) [facility] Comment on above: Performed By: #### L [id number], [id number] ####Funeral Home Director: UNA ARCE ([id number])[facility] [place] (SBHLAB)[address] [place] [address] [place] PROMYELOCYTES TOTAL PER COUNTED LEUKOCYTES BY MANUAL COUNT Normal [facility] Comment on above: Performed By: #### L [id number], [id number] ####Funeral Home Director: UNA ARCE ([id number])[facility] [place] (SBHL[facility])[address] [place] [address] [place] RBC MORPHOLOGY IN BLOOD abnormal Normal S [facility] Comment on above: Performed By: #### L [id number], [id number] ####Funeral Home Director: UNA ARCE ([id number])[facility] [place] ([facility])[address] [place] [address] [place] SEGMENTED NEUTROPHILS (10*3/UL) IN BLOOD-CELLAVISION 9.1 10*3/uL High 1.8-7.5 [facility] Comment on above: Performed By: #### L [id number], [id number] ####Funeral Home Director: UNA ARCE ([id number])[facility] [place] ([facility])[address] [place] [address] [place] SEGMENTED NEUTROPHILS/100 LEUKOCYTES-CE 74 % Normal 38-82 [facility] Comment on above: Performed By: #### L [id number], [id number] ####Funeral Home Director: UNA ARCE ([id number])[facility] [place] ([facility])[address] [place] [address] [place] STOMATOCYTES IN BLOOD BY LIGHT MICROSCOPY Moderate Abnormal (none) [facility] Comment on above: Performed By: #### L [id number], [id number] ####Funeral Home Director: UNA ARCE ([id number])[facility] [place] ([facility])[address] [place] [address] [place] UNCLASSIFIED CELLS TOTAL PER COUNTED LEUKOCYTES BY MANUAL COUNT Normal [facility] Comment on above: Performed By: #### L [id number], [id number] ####Funeral Home Director: UNA ARCE ([id number])[facility] [place] ([facility])[address] [place] [address] VARIANT LYMPHOCYTES (10*3/UL) IN BLOOD-CELLAVISION 0.1 10*3/uL High <=0.0 [facility] Comment on above: Performed By: #### L [id number], [id number] ####Funeral Home Director: UNA ARCE ([id number])[facility] (SB[facility])[address] [place] [address] VARIANT LYMPHOCYTES TOTAL PER COUNTED LEUKOCYTES BY MANUAL COUNT 1 Normal [facility] Comment on above: Performed By: #### L [id number], [id number] ####Funeral Home Director: UNA ARCE ([id number])[facility] ([facility]HL[facility])[address] [place] [address] Magnesium [Mass/Vol]on 04-14 Interpretation and review of laboratory results Normal [facility] No Panel Informationon 04-14 [facility] RAD[facility] SYSTEM [facility] Radiology Study observation (narrative) [facility] Case Report [facility] Case Screening Location [facility], [address] [place] [address]; CLIA: [id number]; Joint Commission: [id number]; CAP: [id number] [facility] Comment s1afqWTyCOEouGQfZDTj M LgjdcKlAZDklEOnU5Wqyo nyZXbkKM8gIE3dpYtslRW cuMBwLSRaMdRvs4htw892 nSAsn6kuBRHBVWfoOMWRX Vn0sCzaH09qa0V7RuamA0 5wpSXfZSH0ZLGjRMAqgZV wIKClOTV8ATQnlEApH1vi ITTsDK4qukwuDOriJEssR ZDdtXB2BBRuzDEoL6TfUJ CoYXakHUJuoph4KoJsXe9 vdGVyeTcyMFxwYXJkXHBs YWluXGZzMjAgUGxlYXNlI HVbAIFzo6LrV4udaXKtTH FiZBSsj8RfSCW5nY0xv0j 3AZYbAQPrkQNeKNbXDxI4 AOUgIFXypCQhBcr4DOR1j WWuPJDlKUn6mB6mJUfjh4 0nl7PxCfyoIPA6 [facility] n3bbgAMeEIVoxGBbTkVg M LBsPOQyh4rtFXCyvHTeUx EwMzNcZnRuYmpcdWMxXGR cPgObm9ebg850fBVqf5xr FRUmNsH2mYOkLDDiO18uB LUPM863TEVqEVpgy1uqi2 HpDOMtwKIgi5X3YNAXJBu jHWSOUVp5cKzeK68ah1T2 PlptY3qqEKGzFRMhU3BpD K5jGHClYtx4TPG1BDX8WK MoWNGdV3YnVU0oCFLvjOM dQCn6b6bqaRfnPNIrMHS3 c9mjAQhdhhUcCU6fpo1gt Fq4g0urovFgVJIlOUOzxN BIWNCkH4EouCchTx0esJe 9sLiyPmdvNNA8Xke4TJ2s fy71zob3oHigUYKyuxghV rS5GYcbVSZdvvtgPFf4FN euKNIiuTJ8CVRdmREhY7S xGECaHH2jrqt5RPW6TMcb AQJfEtP9FFPwpYKdQMMqa NgzFOngc419XGD2RuIlLJ 4nS5Pgq9Y1zG1tlXZlAYC viFSuSnScGUAaia8wjCHz JArum9LsZSY2tmB2vXTtg COhQOOeZJ14Scdby9QkDm gaZRC2MGAkxgQfq1Ehw2t mIyOdknApI0yaW9OlSPPq BLQeVOKqNzOcrlDss5Gvi 0HxaTXclMe1x3zgSFHuIO LcdIoqz1vgAYK2ZBXxG5D 4oVMsu7bjYUadECJihDG1 vpW3CHGclENcY7OgxY6fO QHkKB9puej3m0nhELP4TV wzUPZkPwQ7hbV2IFNbiKS mYWNjbIinNTeca734NJU4 DkTeBLGzd0AoS3LebAfeI 86hfHkgF78eQPXpxFesiP 2fhNeemL8bPiWzFwRqSXh xbFxwbGFpblxmMVxmczE2 CCkgdcwyJYSaCHynH9krO gWsUBNtpGbeBNiep4PkLD YeJBSjZUJgNTcoM8gipW4 hiagzMXamPCKpfVihd6sa LgPluQY3PI0lskYyTBTha IbvqoM8ylMouOnwjS4kzV 7xiAeynI8vyGPdcVT0rat sIGluIHNpdHUgaHlicmlk dBwyxYmkfjogaE1nJUZ1s CPgRCJ3wQYhRSVhENRhGI VxxX49gh8qsIQgiuJmB0T xB0IwhVSuhAzhWudjkQWn sLGoNs9qsNWoYA7jGVZgb VOnX7DyVZ2zUBNcggomQF IgVGhlIHVzZSBvZiBvbmU ty1DnpF4tLXZlRNFjVF80 xeByobQ5bFTyDUCnvuYrg GVzdHMgaXMgcmVndWxhdG LbLFTaWWRmUPEiBEm0wPA bk1UiD6kgaRMlanZzY6Ah kFUpEKYZHD9nVCwjx1Lev HXrfCPbs2PwDENbSTDovG 3fUHUzMQ3pXDBtLZxpWHJ ukkVlad9iaxLiOLQdHMZx C5XwxtdhyYbjlqGwVLTsc v6uobPjWDC1TFSbBQXvhT mqeOJkzLQfVDTeszL8z3G wEVKwx5JqX2UgtSLyAMRw cZTxBSN1v0BgxQ9hLIqcl LTcKYBwAH8hcBHqCGXxCJ NsZWFyZWQgYnkgdGhlIFV KQQQgl4OpTE3oPRMisJxy HTDckB7dh3MrKYYyt18gF EZEQSkuIFRoZSBGREEgaG FzIGRldGVybWluZWQgdGh swLCjjVQdPKLaPTVyXS7h DBLlwsBvbQDcm4SywTLeh nIda0WjvfPqERMaGNF1Jf BccGFyXHBhciBBbGwgaW1 pgS8sc3UwbC6dPDailjFf xPRbHb6rjPBfWZ3vCGUks mFmZmluIGVtYmVkZGVkIH Nya6D8SS5mVGAndm0ozpm qjCDxmZ8ftEFcppIkUM8e DK8oC4P0jIHlLETyssDzy 5nhPXs9kRQbSRQjcKRonO DbHcwgJDG5FGHeHSX3hzI jwnPeMLIbzSolaDD6kIOh FADvBQHbMZTzOR49Q5Kaz 3RfU3psJT85PGSxWRVpRD EdcjUlt3xhLWSlk7ynOAX mhBTfT8FuZTRmwPCajjcv ZxRqBVU5LAKsDFH6bCFzN RNnB1XhbSNkzSDktN31QN 1chHP6MI1dBYE5EDzbnM9 nTqPAsI13at1svGU3d5Il ZW7mL4JwTTHfj3I9eaWrN GCyJJ7rcXBdLZHkGPUtjJ lkYXRlZCBvbiBkZWNhbGN uCiczDHQ2eMBujOToZxSY BHL1cBRmQTHeg3XnIAIzN LUmleLbesXkGKUoYQX9zV CoMMCqbGOtg57wI3o6ZO1 tkBskBYKevFKxVHGop2Bd yWGxbVw0kJWfDbQyZZdmH IZrQBqaoTg4qYC9MI8cPO BpC1EeV3evqPZoLZJzYIE qtLWkps1ulGXxcM== [facility] b3xebFJrRFNwnYZGALGn M BXhKX5mcEutlNu3hGvhMD PhbwJ1hVGwPScjx0iuTQW 9z8jgafSSLqsxVGIjDM6y YKlvFZNiPL9yQyMxHMSjP mYxXHBhcGVydzEyMjQwXH DsqINdgDN8XVBoGT5uuwv zXDvvGNzzLTHdesO1NFXf tDLnX9NiJZYpZD4sricyV KD0JVVUQhogNi8wmSYjwE ANCntcZjFcZmNoYXJzZXQ dOKAlm2aqaeWTppbfuIh6 VJo5QDSdQEXjcEDcs9Y3S Qoxt4lrf6RvG1Uch6QqSL w0vF2HWlnjD50ts0N0Tmk 4JPHuIMe5EHzeVVEkMFOz Lof5SDw6I8ryWWBtFDjhE EIcRNsuuTMbQEo1YDklj0 FzqJTqYWj0CQtaOYVzU6U pX9RwHFohTtNkZEosSFEd GQEvZJxnKVRgE4DYAOVxX pG4PbL7UIEgUXs7HXrvCm YWESS5EUf5UeG4CFx7RXO tON0iSQnwwCOiVXvoAhuc FYpwR345VJfaORAlO8XmI 3QgXFxzZyBcXGlkIDUxMD ZpNIikZIIcH6FQVIWzAtU 3DdY2SNEdCXi4SLwnZ3HW NXBrZWC4JGA5VhXxArJ4X Na0QVPKMa3aTGF3YEU3IE iaXWY9KSCePXdajjyhNAf 0IDIgXFxzcyAzIFxcZmwg HNxaY46ysJAyTIBRAcske GFpblxlcGljTmVzdERvYz DdPZxlbICelOTmBV1BWWa 0cmNoXGNmMVxmczIwIEEg DJYYkPL8srGkZAXmjgb8a SxnUswqtBU4JLUmZXJiKW ugDAEqNNg1YSTxlQeaMLQ df9BfY8F7NOIgCJvcq9wv CRYeDJqqp9ScEPvOMVNZA T3YGG7kxAG9GVlZCOLMC3 pIsUYyFCPaD1mhkXF8b6f bxKRqb9l5JGptFVG9tWZu w7LyeJvrWseayZI5OKmrO njsxV3izRJYJAEPZgkNUd jipmMvTZ8AFPTYDE1VhDI aGWHmL7edwVA9c8gfgCLj t5w0ZHwvTAL1eBzcuZUyj lxsdHJjaFxmczIwICBccH VewJOqmRwaAshujOX0CGi fQyaumX7swIJIJOWSYxeV DraqsrNnAG7YHFBGBjBWN Y30BII9BMZ9zGN4Id84KW GcALRjvRIuZCjxD854w1I uaythr9qbzVYnVLosZspb kIUcadD7MNsVATXXEKfOT mKvAE4fHTbMG6HNBdQ9BD V9BMG7nGZ6Wz70MDHpMOY gxPRzAVzfK705CRIwFUsp NBd0ujAlXDHwOmWdQZSvw TpyEZXjK9BuabCwIEybsw 05HHX5q2qlnTWdUMhmAiv foCZsrtK2BYhHUZNJULpO MaDxXK4vZYcEB1CGJZtAX lrlUJmxMmM6D0lvaEdwZq qbzzGtaDTnZzGPzB1pjnF cbNhxWsdemJT9WRvkYliq jV6baJJYAOFDHmxWGexmg xApSW8FPGAKJI4ZyNIbSV JkDXblbJA0u1rpeQDqp8x 3UZgzGLD4rQidhOUqcnbb hPUvtVewjtYgSG7pUAScw iANClxiXGNmMiBNYXRlcm pncPHaWMSekNKsCKT0VHA fVFUcMEFwVKVeuM3DstBv IGFuZCAxIENlbGwgQmxvY 2cubmgmcIEpUB1UQNKelm ANClxmMlxmczIyXHBhciA YBvdnNWDjTNOieCLRi0Dz PGECMgc5XR5MSBPdKKOvs CIBZSD8CI2hHYdnCBFiM0 JpP6OlgeQ1n4wwlScju9G rzFBuGU8brLLjXU2UNCSm jqLfEPdptPtlmZ5hGSu9 [facility] Pathologist Interpretation Location [facility], [address] [place] [id number]; CLIA: [id number]; Joint Commission: HCO [id number]; CAP: [id number] [facility] Pathology report final diagnosis Narrative k6mxkSOvGVLckOLcGHKjJ EgzrvWpFARnzFUwV6Dfho hqHTuqBV6iRC0dtJkzmJH inKPzASDbZzDxo4azi497 bUBum8ngFTDXGSdlXLIMM Nz4xXhiX84to6H4OysgQ3 gmCPQ0HPzhseVqsmo1UUK zpLD7CGs9BBKjdYFywoXv QoVsOYCinKCuiLF1QXOcW K3ihrzmNZtqFEdcQMEuim X2ALTbcQVlT7XvSYUfKZ2 dahjsWMG2XJbmSBJkSLE7 BxReLLRty7Xvyzo1JsYzu GFyZFxwbGFpblxmczIwXG NmMSBBICAtIFBsZXVyYWw sG3S9fDS2NHQWdEzkkRKx SRJdJBmbJwe5gBEgMXR3e L1na9c4IlkrOtFzCLBtdV SxTI3SCN3KPWkAPuDJDNL DRUxMUyBJREVOVElGSUVE KulwCVFxTgUSR0LTNeMsN 0HSJCBAUXVWG9UEKkcvOD UuVA1wsZYnmUP2gV6fCCX yZXNlbnQuIFxwYXJ9 [facility] CV EPIPHANY [facility] Atypical Lymphocytes Manual 1 [facility] Basophils Manual 1 [facility] Eosinophils Manual 3 High 0 - 1 [facility] Interpretation and review of laboratory results Abnormal [facility] Lymphocytes Manual 7 [facility] Monocytes Manual 15 [facility] Neutrophils Manual 75 [facility] No Panel InformationOrdered By: Marianna Francois on 04-14-2025 [facility] [place] Work Phone: No Panel InformationOrdered By: Danyel Platt on 04-14-2025 Case Report [facility] [place] Work Phone: Case Screening Location [facility], [address] [place] [phone]; CLIA: [id number]; Joint Commission: HCO [id number]; CAP: [phone] [facility] [place] Work Phone: Comment l5yktXGmZCXevGCmRTZj M MqkudSnENEtxBEuJ1Cdrc ssEBnzWW8xDB1ssFlplHA eqQBfEQEbDpNtq0hab147 ySVva2gsVGXAFLwbASEFO Mm5lChhO49be4W8QsmuZ5 6vxVSdKIB9MPQlQMPtwDP uGABbIDJ0LFDznHQdV3ld JBHdMA3wydkxVQlwHEqoW LNzwRS0VNZzyMSaY6GjWD RuAZnjXAIxzmy4JfYdIw9 vdGVyeTcyMFxwYXJkXHBs KXaeZYRePoIyZC5fjL2bm PqvaK7paNUapXV8xqzxUO pqwYcrZ51atTSlwYQ2AMO FJqMzoyDkF6ThzdV4mO6b biBoaWdobGlnaHQgbWVzb 5HgLYffIZtyS6VhjEZvAC BCRVIgRVAgNCwgVFRGLTE eSFMHDXxqVP0oHZQMOqSf AKAyQG2cM1Q3tEVkSpKcU 2RwDdQdsTuhaUkpP8o6wl AnvN2fcg40irJcDTEek3P lZMeqaz3vqJHlhE== [facility] Work Phone: Disclaimer z8mybLMgIZUcyQKdGmOk M KMaWHGzt0laUNZtfASeHp EwMzNcZnRuYmpcdWMxXGR iGoUle6aph064lJMaq7yy OUNvOkQ3xPChQMEcX95nR HKTR855VXQnWQkxu9hzi0 BgAGMfeFAdd3D7JCKOUFo ySUHBSXw4hCuwP88gp1A9 EbinM5ufBZDkWZVuY2DpM S8bLETpXmg7MOK1DUH9EJ IqQYQrE6AcUM0sSDNayJJ xYGf0v0wweNqgMXThOXL1 p9azLLscmaVxTW9din0dj Ub2a1chfbWjXGXjJTLzwP MZGWWwO1CetHcqQc4rkKi 5aVyuClctTCL1Pok3QL9y nj02dkv5jYibPWMjrjcmP cF9CPykOYHwplsxQCd5VW rzKVPovUP7FIHikGZiB9K tMIDnZJ9scwv0YNA8OAbi QGAzTpN1EVIweVUqMARim EocMSspe021GSS9ErEmUV 1mQ5Ybc1S6gB8chEUnKYK opZJrPtGgPQIhqq0ajAJd YXubh2ZqZVT2erZ5fDHxu ACkXVNqPH57Afqeu2DzDi jeSWB2TSWljhGye4Efk9p gFzDibdPlA2ekF6KlYJXv KSBbMVEwKqXsefXjh7Lsq 9XmdXWmuAc0l2uqLOJpGR XrnNnep0edZOY6NVSjA3W 8cPGpe9jnZNikKTLvnAI6 tzH6QQGcvOYbJ8YpnG6xL LKbYR0wnjr0d6txSFY3PE wnWZIwAyV8dnR8YETjcRV dGWBwfAybHOkry124SNL8 NkThYFMol3GjS4HduKqkI 61brKspE70bAPHjvKxkqQ 4bxRzooT9bOuVzSbRzSHb xbFxwbGFpblxmMVxmczE2 GJcfiqptDIVrNBkiJ2ihH gAuAUCvxIzrDGunj3TpEC BzZSUkFPOxDTgcG7fqfQ2 weomfATluCWVdaPpyh3hb LzLvaQN8WR8zqxXkEVMbt HloiyG4arBciIigrD0nwH 6phBenrZ6lcLAjoGV3jyt sIGluIHNpdHUgaHlicmlk tWbqzAknloortI7cZKO8c LMyPHH2lVKeRUNfAAGkHF LebO68hx1gnQXqovLxZ9I uB6DjyWOmkCdiVfsqvSLm kCImWi1pxNDzFW5lFDQat YAbB6UaOH2tTALhqjsuIW IgVGhlIHVzZSBvZiBvbmU bx2LolY3wQAVyWKCoJJ85 axDojaQ6vLQaUHFtqqQqh GVzdHMgaXMgcmVndWxhdG SoLZRsOHSnPGJlBWs0eVV um9LjH0bkyMXpbaXlE3Ke vPPkRDKUZX0uCJvmw3Njj DLwiJNmk5UuNAPgPDSgmR 3pAJIwGP2wEFCvIKomPPV sdqArky7vpyVlWJKoHFEo B0LvgxyrxRfpgoDoMUYfn z7pdaPmHGH5QUUdXIFygG cucTVilUQoIUWmsmV4u3F cJRRpt2JuS7YfuCPdMRBv rXAuVVE8w2OavJ5bQMfbi RLxUACdEG5slEKtEGDzNL NsZWFyZWQgYnkgdGhlIFV CXKMkv9GfGG1yFHWuyRdg UBHzaW6cf9QgZWLgq29kD EZEQSkuIFRoZSBGREEgaG FzIGRldGVybWluZWQgdGh nwUVsaLRyDIJnQTOtIL9a GJDpzpYrnDMbv4CwoHYse qGdw8OrlvSeILPiCYM6Ep BccGFyXHBhciBBbGwgaW1 tdA9wp8XwrQ4rBAsvzsBo fUSwZm9qkAZlPA2vMIGfz mFmZmluIGVtYmVkZGVkIH Not6H2RB4sFAHkld5qmza ppKRizB7pdFDxbzIyFO1p DY3eQ2S0iBFdBIQmqvQvg 4nqXXy5tOGeLHUlxXJomY DrMtbzCAJ6ZOSbCEL9mdQ rqdHgDUUwvAjooAE2cDPt KAZoHGGzFWIdKY28Z8Zvd 0ZyL4jbUY66PXThDTEnET ZxuzVlz7tbBJOqz7ajOPL fcGZdC0GaYZNngUGecyna MjOqTJA7YUFqZTP1pCCdK DWmT4PedRVfnMGtpS43OB 2dgKD1SU2sFDW3SPyrfJ3 tMqVYrY48cx2ecMM9m2Qg DZ2rK5TrHBKvj6K7rpQrA TLfXZ9pxQEjIAHbYBLmfT lkYXRlZCBvbiBkZWNhbGN gYwimBJY0tDWcxZWoZbOC POM0sCJvJLEav1QdUDAkA RIdffCbpqVwCHMwEVH0bU VmGFIxeVScl16zF0l2HH9 ppTrrIMHlgXDoRKXra5Ql mUWhyNw7lAPvAvMoCSslO NHbUObqaFw5vNA4PH6wEY RsE7DfB5yjbQCxPGNtPQC nqILwhb2wvFSflU== [facility] Work Phone: Gross Description q2wdpTMuRHUyuAPAFFWw M PAsQZ2geUnylAj5zInoTH NybqG3nBPvLRyon6diYVM 6u8rrzvYWUtacPYPcXG9o HUylAQVfZG4fVnFkBVYlY mYxXHBhcGVydzEyMjQwXH UoxTDojJV3AFNaYO4dyzw uYVowCGzlONPlbmB2RDQj mSKiX6BjANWbRL6bhwjvC KC2ZWUYVergJb5raSNfgT ANCntcZjFcZmNoYXJzZXQ mMGKyw1dwwdRRrfmepSm6 QEd8BRBzMJDgpRUtk0Y1T Zpaq3roe1LbS8Rto6OsVP x5xI3QCddfE94yy4F2Rpu 6HFKeWZe9IClcFYEbFWEe Vqa0HJq3J4rfMLYtXGyrT FZmWCjleIGhFFz7TXfvw6 ZvyTNvTFd9LLaxPBGtN7I fF4LsQGitWrEvNPyuGPJv VCVwWHckEDLrT6CMEPGqV hY2WAl4CIDnWYy6MUjzWj BWRNL5MCO1BeL3OFw8DHY aPS4yOEayyLUgWZwjMjrz DZrqD241YDpcIFKwM8SmN 3QgXFxzZyBcXGlkIDUxMD LjGRklFXQyV8QCRTCgTxV 3ESa4XKPsBQf4TYjaC8SF PNBcJEX3IZV2TzP2SbA5V Hd5IFMHRc7oXVC8Jig1Jb j3SVY6SKRqBXacklcqJAt 0IDIgXFxzcyAzIFxcZmwg KRfqJ43wyOItWFPLXaffb GFpblxlcGljTmVzdERvYz XoDWckxAOczHSnFG3RMGr 0cmNoXGNmMVxmczIwIEEg RPAKhFO8xzPbAQSrdzf6r MioIDRrcZvkT9MxLSWsIQ BhciANCjEwMDAgbUwgXHB zt0ZwP9N0HOExZKrvx9tm PTOnBXois9PkAJyVDHIXS S6QHT5ehZW4THkUDKEJT2 nJpLIaGLMbM8rhuAV0e1e jtDIeg6x8ZPodKXL9uPBg f2EyyNtmSseisQJ8WDygZ gdlgU9jiEQLMQQZMlfZAy kknmNuKL4AUCSVIE2CsGE kOPMiH1xkcYU8v0eljZBe r6k5LTjtRPV0aVbxcOTpv lxsdHJjaFxmczIwICBccH XxnHZdwDffOlgucVQ9BOq bFreooA0bdFLGPXRUBbiW JzcjdwPgXR7ZLEAODhZQG O35PUX7MYU1xUI7Ts93FV ImUAThhUEvDUbyO701iYD xmC93y4dpbHAuLFpeLyyw fFHoshK4YEtKJOGDKPwWU yJmJK9hUOsNZ8RUZfG1FZ T8LNS2cXC6Zo83MZCwIJW haRGlLBnnX796KNTaUIqa DXy7luTmKUWnBoGeUVEae RbzDBKeN1TyayPsDGoddm 35GVZ6g3limJRyVEggWqj luEIsmaI8YPdFSNNLNNdA CeAmJD4dJWaPW0VCPRsWC fjdPImhFcE1L7dgvXzwFn psxnKxkBThSxAGzZ2ealU wkKltNacfsMI7SFtbYlum wN2nkWQPMIQOHqjTMgpdf eZsVS7NOEGIBC2GlYKrXZ HiUDkznFX8w5oekKPql1a 4ZUemMYU5fHkvwKQwrxyv pDQfrBoxbkPaKH5lLELse iANClxiXGNmMiBNYXRlcm fpfHDvRPTlqIGxYKG9DFL cXLOlBADtCLLhgG0SeaSk IGFuZCAxIENlbGwgQmxvY 9nzpoohrCGrPS1ILFRdtm ANClxmMlxmczIyXHBhciA CUukaNWIhMHBqhLTBv3Cw MWXOLmm0JC0VXUCbSHRir GORKXV6NX7iKZdtDRCwM8 QvR5OwwuD7q5btfQvxn7D ieTMfRG0yjDSfOY0WPSLm udLlCDxpnJxhtD4aDUa6 [facility] [employer] Phone: Pathologist Interpretation Location [facility], [address] [place] [address]; CLIA: [id number]; Joint Commission: [id number]; CAP: [id number] [facility] [employer] Phone: Pathology report final diagnosis Narrative p8dqmKRqQEPoqLVgWUIvE RdohiOoPHGreQTrC5Xexq ifSOxsBL7wAB7fqDtadVD nwCMkPVSnSkHue9sdk129 oULry8cuNJQIPXtxDZMOW Cv8zKuqP04ci4C9ZokpN6 lhZRG1OSbhnvPeqyb5JUF tgQV7EDf3NAFmuNArmjLw LoQzHNXmsZYwsHP8YBWhA L6mhsyiCSogYDztODLhwe K1JGZhpLUxT5HrZEMxCH8 ltbkbRJN0VHszIITdBVO2 LuOhQUHqy5Iregb5DmKzc GFyZFxwbGFpblxmczIwXG NmMSBBICAtIFBsZXVyYWw vX0K5hCZ4CXHKOFI3OH3b Ee8bgNSUzGNxJSriW4t5e 7dkU5y3IYVmMWMgZNjcLM DbRc8aIJNGMLgBID8WIGJ PLCmABZyTBV7WIRTYQAQz XHBhclxwYXJ9 [employer] Work Phone: [employer] Work Phone: No Panel InformationOrdered By: Ronal Maurice on 04-14-2025 P Dexter 44 degrees [facility] Work Phone: MO Interval 134 ms [facility] Work Phone: QRS Dexter -35 degrees [facility] Work Phone: QRSD Interval 117 ms [facility] [employer] Work Phone: QT Interval 390 ms [facility] Work Phone: QTC Interval 450 ms [facility] Work Phone: T Wave Dexter 78 degrees [employer] Work Phone: [employer] Work Phone: Nursing Noteon 04-14-2025 Nursing Note Normal [facility] Progress Noteon 04-14-2025 Progress Note Normal [facility] Progress Note Normal [facility] Progress Note Normal [facility] Progress Note Normal [facility] Progress Note Normal [facility] Progress [facility] Normal [facility] Progress Note Normal [facility] US GUIDED THORACENTESISon US GUIDED THORACENTESIS Normal [facility] Vital signsOrdered By: Jake Maurice on 04-14-2025 Heart rate 80 /min bpm [facility] Work Phone: XR Chest Single viewon 04-14 [facility] XR Chest Single viewOrdered By: Anthony Christian on 04-14-2025 [facility] Work Phone: [phone] 04-13-2025 [id number] Normal [facility] BLOOD GAS ARTERIALon 025 AMOUNT OF OXYGEN 2 lpm Normal [facility] Comment on above: Order Comment: Pleas e draw tomorrow AM after using BiPAP. Thank you! Performed By: #### L [id number] ####Funeral Home Director: UNA ARCE ([id number])[facility] ([facility])[address] Base excess Calc (Bld) [Moles/Vol] 11.7 mmol/L High -3.0-3.0 [facility] Comment on above: Order Comment: Pleas e draw tomorrow AM after using BiPAP. Thank you! Performed By: #### L [id number] ####Funeral Home Director: UNA ARCE ([id number])[facility] ([facility])[address] [place] [address] CO2 [Moles/Vol] 39.9 mmol/L High 22.0-28.0 [facility] Comment on above: Order Comment: Pleas e draw tomorrow AM after using BiPAP. Thank you! Performed By: #### L [id number] ####Funeral Home Director: UNA ARCE ([id number])[facility] [place] [address] [place] HCO3 (Bld) [Moles/Vol] 38.1 mmol/L High 21.0-27.0 [facility] Comment on above: Order Comment: Pleas e draw tomorrow AM after using BiPAP. Thank you! Performed By: #### L [id number] ####Funeral Home Director: UNA ARCE ([id number])[facility] ([facility])[address] Hemoglobin (Bld) [Mass/Vol] 11.3 g/dL Low Screen only [facility] Comment on above: Order Comment: Pleas e draw tomorrow AM after using BiPAP. Thank you! Performed By: #### L [id number] ####Funeral Home Director: UNA ARCE ([id number])[facility] [place] [facility])[address] OXYGEN SATURATION (%) IN ARTERIAL BLOOD 95.1 % Low 97.0-99.0 [facility] Comment on above: Order Comment: Pleas e draw tomorrow AM after using BiPAP. Thank you! Performed By: #### L [id number] ####Funeral Home Director: UNA ARCE ([id number])[facility] ([facility])[address] [place] [address] PCO2 ARTERIAL 59.2 mm Hg High 35.0-48.0 [facility] Comment on above: Order Comment: Pleas e draw tomorrow AM after using BiPAP. Thank you! Performed By: #### L [id number] ####Funeral Home Director: UNA ARCE ([id number])[facility] [place] ([facility])[address] [place] [address] PH ARTERIAL 7.426 Normal 7.350-7.450 [facility] Comment on above: Order Comment: Pleas e draw tomorrow AM after using BiPAP. Thank you! Performed By: #### L [id number] ####Funeral Home Director: UNA ARCE ([id number])[facility] ([facility])[address] [place] [address] PO2 ARTERIAL 79.2 mm Hg Low 83.0-108.0 [facility] Comment on above: Order Comment: Pleas e draw tomorrow AM after using BiPAP. Thank you! Performed By: #### L [id number] ####Funeral Home Director: UNA ARCE ([id number])[facility] ([facility])[address] [place] [address] SOURCE OF OXYGEN Nasal Cannula (LPM) Normal [facility] Comment on above: Order Comment: Pleas e draw tomorrow AM after using BiPAP. Thank you! Performed By: #### L [id number] ####Funeral Home Director: UNA ARCE ([id number])[facility])[address] [place] [address] Bacteria identified Aer cx N om (Unsp spec)on 04-13-2025 Gram Stain Result Rare Polymorphonuclear leukocytes per low power field [facility] Gram Stain Result No organisms seen [facility] Bacteria identified Aer cx N om (Unsp spec)Ordered By: Bianca Daigle on 04-13-2025 Gram Stain Result Moderate Polymorphonuclear leukocytes per low power field [facility] Gram Stain Result No organisms seen [facility] CBC W Auto Differential pane l (Bld)on 04-13-2025 Erythrocyte distribution width (RBC) [Ratio] 25 % High 11.5 - 15.0 % [facility] Hematocrit (Bld) [Volume fraction] 28.2 % Low 40.0 - 52.0 % [facility] Hemoglobin (Bld) [Mass/Vol] 7.8 g/dL Low 13.0 - 18.0 g/dL [facility] Interpretation and review of laboratory results Abnormal [facility] MCH (RBC) [Entitic mass] 23.2 pg Low 26. 0 - 34.0 pg [facility] MCHC (RBC) [Mass/Vol] 27.7 % Low 30.5 - 36.0 % [facility] MCV (RBC) [Entitic vol] 83.9 fL 77.0 - 99.0 fL [facility] Platelet mean volume (Bld) [Entitic vol] 9.1 fL 9.0 - 12.7 fL [facility] Platelets (Bld) [#/Vol] 276 10*3/uL 140 - 440 10*3/uL [facility] RBC (Bld) [#/Vol] 3.36 10*6/uL Low 4.40 - 5.9 0 10*6/uL [facility] WBC (Bld) [#/Vol] 12.7 10*3/uL High 3.6 - 10.7 10*3/uL [facility] CBC WITH AUTO DIFFERENTIALon 04-13-2025 Erythrocyte distribution width (RBC) [Ratio] 25.0 % High 11.5-15.0 [facility] Comment on above: Performed By: #### L [id number], [id number] ####Funeral Home Director: UNA ARCE ([id number])[facility] ([facility])[address] Hematocrit (Bld) [Volume fraction] 28.2 % Low 40.0-52.0 [facility] Comment on above: Performed By: #### L [id number], [id number] ####Funeral Home Director: UNA ARCE ([id number])[facility])[address] Hemoglobin (Bld) [Mass/Vol] 7.8 g/dL Low 13.0-18.0 [facility] Comment on above: Performed By: #### L [id number], [id number] ####Funeral Home Director: UNA STAUFFERMELANIE ([id number])[facility] ([facility])[address] [place] [address] MCH (RBC) [Entitic mass] 23.2 pg Low 26.0-34.0 [facility] Comment on above: Performed By: #### L [id number], [id number] ####Funeral Home Director: UNA ARCE ([id number])[facility] ([facility])[address] [place] [address] MCHC 27.7 % Low 30.5-36.0 [facility] Comment on above: Performed By: #### L [id number], [id number] ####Funeral Home Director: UNA ARCE ([id number])[facility] ([facility])[address] MCV (RBC) [Entitic vol] 83.9 fL Normal 77.0-99.0 S [facility] Comment on above: Performed By: #### L [id number], [id number] ####Funeral Home Director: UNA ARCE ([id number])[facility] ([facility])[address] Platelet mean volume (Bld) [Entitic vol] 9.1 fL Normal 9.0-12.7 [facility] Comment on above: Performed By: #### L [id number], [id number] ####Funeral Home Director: UNA ARCE ([id number])[facility]ENTERAngel [facility] ([facility])[address] Platelets (Bld) [#/Vol] 276 10*3/uL Normal 140-440 [facility] Comment on above: Performed By: #### L [id number], [id number] ####Funeral Home Director: UNA ARCE ([id number])[facility]Angel [facility] ([facility])[address] RBC (Bld) [#/Vol] 3.36 10*6/uL Low 4.40-5.90 [facility] Comment on above: Performed By: #### L [id number], [id number] ####Funeral Home Director: UNA ARCE ([id number])[facility] ([facility])[address] [place] [address] WBC (Bld) [#/Vol] 12.7 10*3/uL High 3.6-10.7 [facility] Comment on above: Performed By: #### L [id number], [id number] ####Funeral Home Director: UNA ARCE ([id number])[facility] ([facility])[address] [place] [address] COMPREHENSIVE METABOLIC PANE Anant 04-13-2025 Albumin [Mass/Vol] 2.2 g/dL Low 3.4-4.8 [facility] Comment on above: Performed By: #### L AB103, [id number], LAB17 ####Funeral Home Director: UNA ARCE ([id number])[facility] ([facility])[address] ALP [Catalytic activity/Vol] 52 U/L Normal 40-150 [facility] Comment on above: Performed By: #### L AB103, [id number], LAB17 ####Funeral Home Director: UNA ARCE ([id number])[facility] ([facility])[address] ALT [Catalytic activity/Vol] U/L Normal <40 [facility] Comment on above: Performed By: #### L AB103, [id number], LAB17 ####Funeral Home Director: UNA ARCE ([id number])[facility] ([facility])[address] Anion gap [Moles/Vol] 10 mmol/L Normal 3-13 [facility] Comment on above: Performed By: #### L AB103, [id number], LAB17 ####Funeral Home Director: UNA ARCE ([id number])[facility] ([facility])[address] AST [Catalytic activity/Vol] 25 U/L Normal <34 [facility] Comment on above: Performed By: #### L AB103, [id number], LAB17 ####Funeral Home Director: UNA ARCE ([id number])[facility] ([facility])[address] Bilirubin [Mass/Vol] 0.6 mg/dL Normal <1.2 [facility] Comment on above: Performed By: #### L AB103, [id number], LAB17 ####Funeral Home Director: UAN ARCE ([id number])[facility] ([facility])[address] Calcium [Mass/Vol] 8.1 mg/dL Low 8.8-10.0 [facility] Comment on above: Performed By: #### L AB103, [id number], LAB17 ####Funeral Home Director: UNA ARCE ([id number])[facility] ([facility])[address] Chloride [Moles/Vol] 93 mmol/L Low 98-107 [facility] Comment on above: Performed By: #### L AB103, [id number], LAB17 ####Funeral Home Director: UNA ARCE ([id number])[facility] ([facility])[address] [place] [address] [place] CO2 [Moles/Vol] 36 mmol/L High 23-31 [facility] Comment on above: Performed By: #### L AB103, [id number], LAB17 ####Funeral Home Director: UNA ARCE ([id number])[facility] ([facility])[address] Creatinine [Mass/Vol] 1.46 mg/dL High 0.72-1.25 [facility] Comment on above: Performed By: #### L AB103, YDT105, LAB17 ####Funeral Home Director: UNA ARCE ([id number])[facility] ([facility])[address] GLOMERULAR FILTRATION RATE ML/MIN/1.73 SQ M.PREDICTED 45.7 mL/min/1.73m*2 Low >60.0 [facility] Comment on above: Result Comment: Calc ulation based on the Chronic Kidney Disease Epidemiology Collaboration (CKD-EPI) equation refit without adjustment for race Performed By: #### L AB103, [id number], LAB17 ####Funeral Home Director: UNA ARCE ([id number])[facility] ([facility])[address] Glucose [Mass/Vol] 94 mg/dL Normal 82-115 [facility] Comment on above: Performed By: #### L AB103, [id number], LAB17 ####Funeral Home Director: UNA ARCE ([id number])[facility] ([facility])[address] [place] [address] [place] Potassium [Moles/Vol] 3.4 mmol/L Low 3.5-5.1 [facility] Comment on above: Result Comment: [facility] potassium values may be up to 0.5 mmol/L lower than serum values. Performed By: #### L AB103, [id number], LAB17 ####Funeral Home Director: UNA ARCE ([id number])[facility] ([facility])[address] Protein [Mass/Vol] 5.8 g/dL Low 6.4-8.3 [facility] Comment on above: Performed By: #### L AB103, [id number], LAB17 ####Funeral Home Director: UNA ARCE ([id number])[facility] ([facility])[address] Sodium [Moles/Vol] 139 mmol/L Normal 136-145 [facility] Comment on above: Performed By: #### L AB103, [id number], LAB17 ####Funeral Home Director: UNA ARCE ([id number])[facility] ([facility])[address] Urea nitrogen [Mass/Vol] 37 mg/dL High 9-23 [facility] Comment on above: Performed By: #### L AB103, [id number], LAB17 ####Funeral Home Director: UNA ARCE ([id number])[facility] ([facility])[address] [place] [address] Comprehensive metabolic 1998 panelon 04-13-2025 Albumin [Mass/Vol] 2.2 g/dL Low 3.4 - 4.8 g/dL [facility] ALP [Catalytic activity/Vol] 52 U/L 40 - 150 U/L [facility] ALT [Catalytic activity/Vol] U/L NINF - 40 U/L [facility] Anion gap [Moles/Vol] 10 mmol/L 3 - 13 mmol/L [facility] AST [Catalytic activity/Vol] 25 U/L NINF - 34 U/L [facility] Bilirubin [Mass/Vol] 0.6 mg/dL NINF - 1.2 mg/dL [facility] Calcium [Mass/Vol] 8.1 mg/dL Low 8.8 - 10. 0 mg/dL [facility] Chloride [Moles/Vol] 93 mmol/L Low 98 - 10 7 mmol/L [facility] CO2 [Moles/Vol] 36 mmol/L High 23 - 31 mmol/L [facility] Creatinine [Mass/Vol] 1.46 mg/dL High 0.72 - 1.25 mg/dL [facility] GFR/1.73 sq M.predicted (S/P/Bld) [Vol rate/Area] 45.7 mL/min Low - PINF [facility] Glucose [Mass/Vol] 94 mg/dL 82 - 115 mg/dL [facility] Interpretation and review of laboratory results Abnormal [facility] Potassium [Moles/Vol] 3.4 mmol/L Low 3.5 - 5.1 mmol/L [facility] Protein [Mass/Vol] 5.8 g/dL Low 6.4 - 8.3 g/dL [facility] Sodium [Moles/Vol] 139 mmol/L 136 - 145 mmol/L [facility] Urea nitrogen [Mass/Vol] 37 mg/dL High 9 - 23 mg/d L [facility] Laboratory - Chemistry and C hemistry - challengeon 04-13-2025 Base excess Calc (Bld) [Moles/Vol] 11.7 mmol/L High -3.0 - 3.0 mmol/L [facility] CO2 (Bld) [Partial pressure] 59.2 mm[Hg] High [facility] CO2 [Moles/Vol] 39.9 mmol/L High 22.0 - 28.0 mmol/L [facility] HCO3 (Bld) [Moles/Vol] 38.1 mmol/L High 21.0 - 27.0 mmol/L [facility] Oxygen (Bld) [Partial pressure] 79.2 mm[Hg] Low [facility] pH (Bld) 7.426 [pH] 7.350 - 7.450 [facility] Magnesium [Mass/Vol] 1.9 mg/dL 1.6 - 2 .6 mg/dL [facility] - Hematology and Cell countson 04-13-2025 Hemoglobin (Bld) [Mass/Vol] 11.3 g/dL Low 13.5 - 17.5 g/dl [facility] Anisocytosis Ql (Bld) Moderate Abnormal (none) [facility] Eosinophils (Bld) [#/Vol] 0.3 10*3/uL 0.0 - 0.5 10*3/uL [facility] Eosinophils/100 WBC (Bld) 2 % 0 - 6 % [facility] Hypochromia Ql (Bld) Slight Abnormal (none) [facility] Lymphocytes (Bld) [#/Vol] 1.9 10*3/uL 1.0 - 4.3 10*3/uL [facility] Lymphocytes/100 WBC (Bld) 15 % 15 - 45 % [facility] Monocytes (Bld) [#/Vol] 0.9 10*3/uL 0.0 - 0.9 10*3/uL [facility] Monocytes/100 WBC (Bld) 7 % 5 - 13 % [facility] Myelocytes (Bld) [#/Vol] 0.1 10*3/uL High SELENE F - 0.0 10*3/uL [facility] Myelocytes/100 WBC (Bld) 1 % High NINF - 0 % [facility] Neutrophils (Bld) [#/Vol] 9.7 10*3/uL High 1.8 - 7.5 10*3/uL [facility] Poikilocytosis LM Ql (Bld) Slight Abnormal (none) [facility] RBC morphology finding Nom (Bld) abnormal [facility] Segmented neutrophils/100 WBC (Bld) 76 % 38 - 82 % [facility] Stomatocytes LM Ql (Bld) Slight Abnormal (none) [facility] - Microbiology an d Antimicrobial susceptibilityon 04-13-2025 Bacteria identified Aer cx Nom (Unsp spec) No growth at 4 days [facility] - Microbiology an d Antimicrobial susceptibilityOrdered By: Bianca Daigle on 04-13-2025 Bacteria identified Aer cx Nom (Unsp spec) No growth at 4 days [facility] MAGNESIUMon 04-13-2025 Magnesium [Mass/Vol] 1.9 mg/dL Normal 1.6-2.6 [facility] Comment on above: Result Comment: YARELI [place] COMMENTS:Higher values can be expected in females during menses. Performed By: #### L [id number], [id number], [id number] ####Funeral Home Director: UNA ARCE ([id number])[facility] ([facility])[address] [place] [address] MANUAL DIFFERENTIAL (CELLAVI BANDAR)on 04-13-2025 ANISOCYTOSIS PRESENCE IN BLOOD BY LIGHT MICROSCOPY Moderate Abnormal (none) [facility] Comment on above: Performed By: #### L [id number], [id number] ####Funeral Home Director: UNA ARCE ([id number])[facility] ([facility])[address] [place] [address] [place] BAND NEUTROPHILS TOTAL PER COUNTED LEUKOCYTES BY MANUAL COUNT Normal [facility] Comment on above: Performed By: #### L [id number], [id number] ####Funeral Home Director: UNA BERMUDEZSILASMELANIE ([id number])[facility] ([facility])[address] [place] [address] [place] BASOPHILS TOTAL PER COUNTED LEUKOCYTES BY MANUAL COUNT Normal [facility] Comment on above: Performed By: #### L [id number], [id number] ####Funeral Home Director: UNA BERMUDEZSILASMELANIE ([id number])[facility] ([facility])[address] [place] [address] [place] BLASTS TOTAL PER COUNTED LEUKOCYTES BY MANUAL COUNT [facility] Comment on above: Performed By: #### L [id number], [id number] ####Funeral Home Director: UNA STAUFFERMELANIE ([phone])[facility] ([facility])[address] [place] [address] [place] EOSINOPHILS (10*3/UL) IN BLOOD-CELLAVISION 0.3 10*3/uL Normal 0.0-0.5 [facility] Comment on above: Performed By: #### L [id number], [id number] ####Funeral Home Director: UNA ARCE ([id number])[facility] [place] ([facility])[address] [place] [address] [place] EOSINOPHILS TOTAL PER COUNTED LEUKOCYTES BY MANUAL COUNT 2 High 0-1 [facility] Comment on above: Performed By: #### L [id number], [id number] ####Funeral Home Director: UNA STAUFFERMELANIE ([id number])[facility] ([facility])[address] [place] [address] [place] EOSINOPHILS/100 LEUKOCYTES IN BLOOD-CELLAVISION 2 % Normal 0-6 [facility] Comment on above: Performed By: #### L [id number], [id number] ####Funeral Home Director: UNA MOHRCER ([id number])[facility] ([facility])[address] [place] [address] [place] HYPOCHROMIA (PRESENCE) IN BLOOD BY LIGHT MICROSCOPY Slight Abnormal (none) [facility] Comment on above: Performed By: #### L [id number], [id number] ####Funeral Home Director: UNA ARCE ([id number])[facility] [place] ([facility])[address] [place] [address] [place] LYMPHOCYTES (10*3/UL) IN BLOOD-CELLAVISION 1.9 10*3/uL Normal 1.0-4.3 [facility] [facility] Comment on above: Performed By: #### L [id number], [id number] ####Funeral Home Director: UNA ARCE ([id number])[facility] [place] ([facility])[address] LYMPHOCYTES TOTAL PER COUNTED LEUKOCYTES BY MANUAL COUNT 15 Normal [facility] Comment on above: Performed By: #### L [id number], [id number] ####Funeral Home Director: UNA ARCE ([id number])[facility] [place] (SB[facility])[address] [place] [address] [place] LYMPHOCYTES/100 LEUKOCYTES IN BLOOD-CELLAVISION 15 % Normal 15-45 [facility] Comment on above: Performed By: #### L [id number], [id number] ####Funeral Home Director: UNA ARCE ([phone])[facility] (SB[facility])[address] [place] [address] [place] METAMYELOCYTES TOTAL PER COUNTED LEUKOCYTES BY MANUAL COUNT Normal [facility] Comment on above: Performed By: #### L [id number], [id number] ####Funeral Home Director: UNA ARCE ([phone])[facility] (SB[facility])[address] [place] [address] [place] MONOCYTES (10*3/UL) IN BLOOD-CELLAVISION 0.9 10*3/uL Normal 0.0-0.9 [facility] Comment on above: Performed By: #### L [id number], [id number] ####Funeral Home Director: UNA ARCE ([phone])[facility] [place] (SBHLAB)[address] [place] [address] [place] MONOCYTES TOTAL PER COUNTED LEUKOCYTES BY MANUAL COUNT 7 Normal [facility] Comment on above: Performed By: #### L [id number], [id number] ####Funeral Home Director: UNA ARCE ([phone])[facility] [place] (SBHLAB)[address] [place] [address] [place] MONOCYTES/100 LEUKOCYTES IN BLOOD-LUCIANA 7 % Normal 5-13 [facility] Comment on above: Performed By: #### L [id number], [id number] ####Funeral Home Director: UNA ARCE ([phone])[facility] [place] (SBHLAB)[address] [place] [address] [place] MYELOCYTES (10*3/UL) IN BLOOD-CELLAVISION 0.1 10*3/uL High <=0.0 [facility] Comment on above: Performed By: #### L [id number], [id number] ####Funeral Home Director: UNA ARCE ([phone])[facility] [place] (SBHLAB)[address] [place] [address] [place] MYELOCYTES COUNTED BY MANUAL COUNT 1 Normal [facility] Comment on above: Performed By: #### L [id number], [id number] ####Funeral Home Director: UNA ARCE ([id number])[facility] [place] (SBHLAB)[address] [place] [address] [place] MYELOCYTES/100 LEUKOCYTES IN BLOOD-CELLAVISION 1 % High <=0 [facility] Comment on above: Performed By: #### L [id number], [id number] ####Funeral Home Director: UNA ARCE ([id number])[facility] [place] ([facility])[address] [place] [address] [place] NEUTROPHILS TOTAL PER COUNTED LEUKOCYTES BY MANUAL COUNT 77 Normal [facility] Comment on above: Performed By: #### L [id number], [id number] ####Funeral Home Director: UNA ARCE ([phone])[facility] [place] ([facility])[address] [place] [address] [place] POIKILOCYTOSIS (PRESENCE) IN BLOOD BY LIGHT MICROSCOPY Slight Abnormal (none) [facility] Comment on above: Performed By: #### L [id number], [id number] ####Funeral Home Director: UNA ARCE ([id number])[facility] ([facility] [place] [address] [place] PROMYELOCYTES TOTAL PER COUNTED LEUKOCYTES BY MANUAL COUNT Normal [facility] Comment on above: Performed By: #### L [id number], [id number] ####Funeral Home Director: UNA ARCE ([id number])[facility] (SBHLAB)[address] RBC MORPHOLOGY IN BLOOD abnormal Normal S [facility] Comment on above: Performed By: #### L [id number], [id number] ####Funeral Home Director: UNA ARCE ([phone])[facility] ([facility] [place] [address] [place] SEGMENTED NEUTROPHILS (10*3/UL) IN BLOOD-CELLAVISION 9.7 10*3/uL High 1.8-7.5 [facility] Comment on above: Performed By: #### L [id number], [id number] ####Funeral Home Director: UNA ARCE ([phone])[facility] (SBHLAB)[address] [place] [address] [place] SEGMENTED NEUTROPHILS/100 LEUKOCYTES-CE 76 % Normal 38-82 [facility] Comment on above: Performed By: #### L [id number], [id number] ####Funeral Home Director: UNA ARCE ([phone])[facility] (SBHLAB)[address] [place] [address] [place] STOMATOCYTES IN BLOOD BY LIGHT MICROSCOPY Slight Abnormal (none) [facility] Comment on above: Performed By: #### L [id number], [id number] ####Funeral Home Director: UNA ARCE ([phone])[facility] (SB[facility])[address] UNCLASSIFIED CELLS TOTAL PER COUNTED LEUKOCYTES BY MANUAL COUNT Normal [facility] Comment on above: Performed By: #### L [id number], [id number] ####Funeral Home Director: UNA ARCE ([phone])[facility] (SBHLAB)[address] VARIANT LYMPHOCYTES TOTAL PER COUNTED LEUKOCYTES BY MANUAL COUNT Normal [facility] Comment on above: Performed By: #### L [id number], [id number] ####Funeral Home Director: UNA ARCE ([phone])[facility] (HLAB)[address] Magnesium [Mass/Vol]on 04-13 [facility] No Panel Informationon 04-13 Amount Of Oxygen 2 lpm [facility] Interpretation and review of laboratory results Abnormal [facility] Source Of Oxygen Nasal Cannula (LPM) [facility] Interpretation and review of laboratory results Normal [facility] Eosinophils Manual 2 High 0 - 1 [facility] Interpretation and review of laboratory results Abnormal [facility] Lymphocytes Manual 15 [facility] Monocytes Manual 7 [facility] Myelocytes Manual 1 [facility] Neutrophils Manual 77 [facility] PHOSPHORUSon 04-13-2025 Phosphate [Mass/Vol] 2.9 mg/dL Normal 2.3-4.7 [facility] Comment on above: Performed By: #### L AB103, [id number], LAB17 ####Funeral Home Director: UNA ARCE ([id number])[facility] (SBHLAB)[address] [place] [address] [place] Phosphate [Moles/Vol]on Phosphate [Mass/Vol] 2.9 mg/dL 2.3 - 4 .7 mg/dL [facility] Progress Noteon 04-13-2025 Progress Note Normal [facility] Progress Note Normal [facility] Progress Note Normal [facility] Progress Note Normal [facility] Progress Note Normal [facility] XR Chest Single viewon 04-13 Radiology Study observation (narrative) Lynette Balderrama alth [id number] 04-12-2025 [id number] Normal [facility] [id number] Normal [facility] CBC W Auto Differential pane l (Bld)on 04-12-2025 Erythrocyte distribution width (RBC) [Ratio] 24.3 % High 11.5 - 15.0 % [facility] Hematocrit (Bld) [Volume fraction] 26.8 % Low 40.0 - 52.0 % [facility] Hemoglobin (Bld) [Mass/Vol] 7.4 g/dL Low 13.0 - 18.0 g/dL [facility] MCH (RBC) [Entitic mass] 23.1 pg Low 26. 0 - 34.0 pg [facility] MCHC (RBC) [Mass/Vol] 27.6 % Low 30.5 - 36.0 % [facility] MCV (RBC) [Entitic vol] 83.8 fL 77.0 - 99.0 fL [facility] Platelet mean volume (Bld) [Entitic vol] 9.3 fL 9.0 - 12.7 fL [facility] Platelets (Bld) [#/Vol] 272 10*3/uL 140 - 440 10*3/uL [facility] RBC (Bld) [#/Vol] 3.2 10*6/uL Low 4.40 - 5.9 0 10*6/uL [facility] WBC (Bld) [#/Vol] 12 10*3/uL High 3.6 - 10.7 10*3/uL [facility] CBC WITH AUTO DIFFERENTIALon 04-12-2025 Erythrocyte distribution width (RBC) [Ratio] 24.3 % High 11.5-15.0 [facility] Comment on above: Performed By: #### L [id number], [id number] ####Funeral Home Director: UNA ARCE ([phone])[facility] ([address] Hematocrit (Bld) [Volume fraction] 26.8 % Low 40.0-52.0 [facility] Comment on above: Performed By: #### L [id number], [id number] ####Funeral Home Director: UNA ARCE ([id number])[facility]ASHIRMar[facility] (SBHLAB)[address] Hemoglobin (Bld) [Mass/Vol] 7.4 g/dL Low 13.0-18.0 [facility] Comment on above: Performed By: #### L [id number], [id number] ####Funeral Home Director: UNA ARCE ([id number])[facility]ENTERAngel SANCHEZNEW MEXICO BEH[facility] HEALTH INSTITUTE AT LAS VEGASMarisol (SBHLAB)[address] MCH (RBC) [Entitic mass] 23.1 pg Low 26.0-34.0 [facility] Comment on above: Performed By: #### L [id number], [id number] ####Funeral Home Director: UNA ARCE ([id number])[facility]ENTERAngel [facility] (SBHLAB)[address] MCHC 27.6 % Low 30.5-36.0 [facility] Comment on above: Performed By: #### L [id number], [id number] ####Funeral Home Director: UNA ARCE ([id number])[facility] (SBHLAB)[address] MCV (RBC) [Entitic vol] 83.8 fL Normal 77.0-99.0 S [facility] Comment on above: Performed By: #### L [id number], [id number] ####Funeral Home Director: UNA ARCE ([phone])[facility] (SBHL[facility])[address] Platelet mean volume (Bld) [Entitic vol] 9.3 fL Normal 9.0-12.7 [facility] Comment on above: Performed By: #### L [id number], [id number] ####Funeral Home Director: UNA ARCE ([id number])[facility]ENTERAngel [facility]ZNEW [facility]EX[facility]N (SBHLAB)[address] Platelets (Bld) [#/Vol] 272 10*3/uL Normal 140-440 [facility] Comment on above: Performed By: #### L [id number], [id number] ####Funeral Home Director: UNA ARCE ([phone])[place] (SBHLAB)[address] RBC (Bld) [#/Vol] 3.20 10*6/uL Low 4.40-5.90 [facility] Comment on above: Performed By: #### L [id number], [id number] ####Funeral Home Director: UNA ARCE ([id number])[facility] [place] (SB[facility])[address] WBC (Bld) [#/Vol] 12.0 10*3/uL High 3.6-10.7 [facility] Comment on above: Performed By: #### L [id number], [id number] ####Funeral Home Director: UNA ARCE ([id number])[facility] [place] (SB[facility])[address] COMPREHENSIVE METABOLIC PANE Anant 04-12-2025 Albumin [Mass/Vol] 2.2 g/dL Low 3.4-4.8 [facility] Comment on above: Performed By: #### L AB103, [id number], LAB17 ####Funeral Home Director: UNA ARCE ([id number])[facility]ENTERAngel [place] (SBHLAB)[address] ALP [Catalytic activity/Vol] 49 U/L Normal 40-150 [facility] Comment on above: Performed By: #### L AB103, [id number], LAB17 ####Funeral Home Director: UNA ARCE ([id number])[facility] [place] ([facility])[address] ALT [Catalytic activity/Vol] U/L Normal <40 [facility] Comment on above: Performed By: #### L AB103, [id number], LAB17 ####Funeral Home Director: UNA ARCE ([phone])[facility] [place] (SB[facility])[address] Anion gap [Moles/Vol] 7 mmol/L Normal 3-13 [facility] Comment on above: Performed By: #### L AB103, [id number], LAB17 ####Funeral Home Director: UNA ARCE ([id number])[facility] [place] ([facility])[address] AST [Catalytic activity/Vol] 19 U/L Normal <34 [facility] Comment on above: Performed By: #### L AB103, [id number], LAB17 ####Funeral Home Director: UNA ARCE ([id number])[facility] [place] ([facility])[address] Bilirubin [Mass/Vol] 0.6 mg/dL Normal <1.2 [facility] Comment on above: Performed By: #### L AB103, [id number], LAB17 ####Funeral Home Director: UNA ARCE ([id number])[facility] [place] ([facility])[address] Calcium [Mass/Vol] 7.9 mg/dL Low 8.8-10.0 [facility] Comment on above: Performed By: #### L AB103, [id number], LAB17 ####Funeral Home Director: UNA ARCE ([id number])[facility] [place] ([facility])[address] Chloride [Moles/Vol] 95 mmol/L Low 98-107 [facility] Comment on above: Performed By: #### L AB103, [id number], LAB17 ####Funeral Home Director: UNA ARCE ([phone])[facility] [place] ([facility])[address] [place] [address] [place] CO2 [Moles/Vol] 37 mmol/L High 23-31 [facility] Comment on above: Performed By: #### L AB103, [id number], LAB17 ####Funeral Home Director: UNA ARCE ([id number])[facility] [place] ([facility])[address] Creatinine [Mass/Vol] 1.53 mg/dL High 0.72-1.25 [facility] Comment on above: Performed By: #### L AB103, [id number], LAB17 ####Funeral Home Director: UNA ARCE ([phone])[facility]ENTERAngel SANCHEZNEW MEXICO BEHAV[facility] HEALTH INSTITUTE AT L[facility] VEGASMarisol (SBHLAB)[address] [place] [address] [place] GLOMERULAR FILTRATION RATE ML/MIN/1.73 SQ M.PREDICTED 43.2 mL/min/1.73m*2 Low >60.0 [facility] Comment on above: Result Comment: Calc ulation based on the Chronic Kidney Disease Epidemiology Collaboration (CKD-EPI) equation refit without adjustment for race Performed By: #### L AB103, [id number], LAB17 ####Funeral Home Director: UNA ARCE ([phone])[facility] (SBHLAB)[address] Glucose [Mass/Vol] 103 mg/dL Normal 82-115 [facility] Comment on above: Performed By: #### Gilbert AB103, [id number], LAB17 ####Funeral Home Director: UNA ARCE ([id number])[facility] (SBAB)[address] Potassium [Moles/Vol] 3.7 mmol/L Normal 3.5-5.1 [facility] Comment on above: Result Comment: [facility] potassium values may be up to 0.5 mmol/L lower than serum values. Performed By: #### L AB103, [id number], LAB17 ####Funeral Home Director: UNA ARCE ([id number])[facility]ENTERAngel [facility] (SBHLAB)[address] [place] [address] [place] Protein [Mass/Vol] 5.6 g/dL Low 6.4-8.3 [facility] Comment on above: Performed By: #### L AB103, [id number], LAB17 ####Funeral Home Director: UNA ARCE ([phone])[facility] (SBHLAB)[address] [place] [address] [place] Sodium [Moles/Vol] 139 mmol/L Normal 136-145 [facility] Comment on above: Performed By: #### L AB103, [id number], LAB17 ####Funeral Home Director: UNA STAUFFERMELANIE ([id number])[facility]ANEW [facility] L[facility] VEGASMarisol (SBHLAB)[address] Urea nitrogen [Mass/Vol] 40 mg/dL High 9-23 [facility] Comment on above: Performed By: #### L AB103, [id number], LAB17 ####Funeral Home Director: UNA YAZMIN ([phone])[facility] (SBHLAB)[address] Comprehensive metabolic 1998 panelon 04-12-2025 Albumin [Mass/Vol] 2.2 g/dL Low 3.4 - 4.8 g/dL [facility] ALP [Catalytic activity/Vol] 49 U/L 40 - 150 U/L [facility] ALT [Catalytic activity/Vol] U/L NINF - 40 U/L [facility] Anion gap [Moles/Vol] 7 mmol/L 3 - 13 mmol/L [facility] AST [Catalytic activity/Vol] 19 U/L NINF - 34 U/L [facility] Bilirubin [Mass/Vol] 0.6 mg/dL NINF - 1.2 mg/dL [facility] Calcium [Mass/Vol] 7.9 mg/dL Low 8.8 - 10. 0 mg/dL [facility] Chloride [Moles/Vol] 95 mmol/L Low 98 - 10 7 mmol/L [facility] CO2 [Moles/Vol] 37 mmol/L High 23 - 31 mmol/L [facility] Creatinine [Mass/Vol] 1.53 mg/dL High 0.72 - 1.25 mg/dL [facility] GFR/1.73 sq M.predicted (S/P/Bld) [Vol rate/Area] 43.2 mL/min Low - PINF [facility] Glucose [Mass/Vol] 103 mg/dL 82 - 115 mg/dL [facility] Interpretation and review of laboratory results Abnormal [facility] Potassium [Moles/Vol] 3.7 mmol/L 3.5 - 5.1 mmol/L [facility] Protein [Mass/Vol] 5.6 g/dL Low 6.4 - 8.3 g/dL [facility] Sodium [Moles/Vol] 139 mmol/L 136 - 145 mmol/L [facility] Urea nitrogen [Mass/Vol] 40 mg/dL High 9 - 23 mg/d L [facility] Consulton 04-12-2025 Consult Normal [facility] Laboratory - Chemistry and C hemistry - challengeon 04-12-2025 Magnesium [Mass/Vol] 2.2 mg/dL 1.6 - 2 .6 mg/dL [facility] Laboratory - Hematology and Cell countson 04-12-2025 Anisocytosis Ql (Bld) Slight Abnormal (none) [facility] Band form neutrophils (Bld) [#/Vol] 0.1 10*3/uL High NINF - 0.0 10*3/uL [facility] Band form neutrophils/100 WBC (Bld) 1 % High NINF - 0 % [facility] Eosinophils (Bld) [#/Vol] 0.8 10*3/uL High 0.0 - 0.5 10*3/uL [facility] Eosinophils/100 WBC (Bld) 7 % High 0 - 6 % [facility] Lymphocytes (Bld) [#/Vol] 0.7 10*3/uL Low 1.0 - 4.3 10*3/uL [facility] Lymphocytes/100 WBC (Bld) 6 % Low 15 - 45 % [facility] Monocytes (Bld) [#/Vol] 0.5 10*3/uL 0.0 - 0.9 10*3/uL [facility] Monocytes/100 WBC (Bld) 4 % Low 5 - 13 % [facility] Neutrophils (Bld) [#/Vol] 9.8 10*3/uL High 1.8 - 7.5 10*3/uL [facility] RBC morphology finding Nom (Bld) abnormal [facility] Segmented neutrophils/100 WBC (Bld) 81 % 38 - 82 % [facility] MAGNESIUMon 04-12-2025 Magnesium [Mass/Vol] 2.2 mg/dL Normal 1.6-2.6 [facility] Comment on above: Result Comment: YARELI [place] COMMENTS:Higher values can be expected in females during menses. Performed By: #### L AB103, [id number], LAB17 ####Funeral Home Director: UNA ARCE ([phone])[facility] [place] (SBHLAB)[address] [place] [address] [place] MANUAL DIFFERENTIAL (CELLAVI BANDAR)on 04-12-2025 ANISOCYTOSIS PRESENCE IN BLOOD BY LIGHT MICROSCOPY Slight Abnormal (none) [facility] Comment on above: Performed By: #### L [id number], [id number] ####Funeral Home Director: UNA ARCE ([id number])[facility] [place] ([facility])[address] BAND NEUTROPHILS TOTAL PER COUNTED LEUKOCYTES BY MANUAL COUNT 1 Normal [facility] Comment on above: Performed By: #### L [id number], [id number] ####Funeral Home Director: UNA STAUFFERMELANIE ([id number])[facility] [place] (SB[facility])[address] BANDS (10*3/UL) IN BLOOD-CELLAVISION 0.1 10*3/uL High <=0.0 [facility] Comment on above: Performed By: #### L [id number], [id number] ####Funeral Home Director: UNA ARCE ([id number])[facility] [place] (SBHL[facility])[address] [place] [address] [place] BASOPHILS TOTAL PER COUNTED LEUKOCYTES BY MANUAL COUNT Normal [facility] Comment on above: Performed By: #### L [id number], [id number] ####Funeral Home Director: UNA ARCE ([id number])[facility] [place] (SBHL[facility])[address] [place] [address] [place] BLASTS TOTAL PER COUNTED LEUKOCYTES BY MANUAL COUNT Normal [facility] Comment on above: Performed By: #### L [id number], [id number] ####Funeral Home Director: UNA RACE ([id number])[facility] [place] ([facility])[address] [place] [address] [place] EOSINOPHILS (10*3/UL) IN BLOOD-CELLAVISION 0.8 10*3/uL High 0.0-0.5 [facility] Comment on above: Performed By: #### L [id number], [id number] ####Funeral Home Director: UNA YAZMIN ([id number])[facility] [place] (SBHLAB)[address] [place] [address] [place] EOSINOPHILS TOTAL PER COUNTED LEUKOCYTES BY MANUAL COUNT 7 High 0-1 [facility] Comment on above: Performed By: #### L [id number], [id number] ####Funeral Home Director: UNA BERMUDEZPEDRO ([id number])[facility] [place] (SBHLAB)[address] [place] [address] [place] EOSINOPHILS/100 LEUKOCYTES IN BLOOD-CELLAVISION 7 % High 0-6 [facility] Comment on above: Performed By: #### L [id number], [id number] ####Funeral Home Director: UNA YAZMIN ([id number])[facility] [place] ([facility])[address] [place] [address] [place] LYMPHOCYTES (10*3/UL) IN BLOOD-CELLAVISION 0.7 10*3/uL Low 1.0-4.3 [facility] Comment on above: Performed By: #### L [id number], [id number] ####Funeral Home Director: UNA BERMUDEZPEDRO ([phone])[facility] [place] (SBHL[facility])[address] [place] [address] [place] LYMPHOCYTES TOTAL PER COUNTED LEUKOCYTES BY MANUAL COUNT 6 Normal [facility] Comment on above: Performed By: #### L [id number], [id number] ####Funeral Home Director: UNA BERMUDEZPEDRO ([id number])[facility] [place] ([facility])[address] [place] [address] [place] LYMPHOCYTES/100 LEUKOCYTES IN BLOOD-CELLAVISION 6 % Low 15-45 [facility] Comment on above: Performed By: #### L [id number], [id number] ####Funeral Home Director: UNA BERMUDEZPEDRO ([phone])[facility] [place] (SB[facility])[address] [place] [address] [place] METAMYELOCYTES TOTAL PER COUNTED LEUKOCYTES BY MANUAL COUNT Normal [facility] Comment on above: Performed By: #### L [id number], [id number] ####Funeral Home Director: UNA BERMUDEZPEDRO ([id number])[facility] [place] (SB[facility])[address] [place] [address] [place] MONOCYTES (10*3/UL) IN BLOOD-CELLAVISION 0.5 10*3/uL Normal 0.0-0.9 [facility] Comment on above: Performed By: #### L [id number], [id number] ####Funeral Home Director: UNA BERMUDEZPEDRO ([id number])[facility] [place] (SBHLAB)[address] [place] [address] [place] MONOCYTES TOTAL PER COUNTED LEUKOCYTES BY MANUAL COUNT 4 Normal [facility] Comment on above: Performed By: #### L [id number], [id number] ####Funeral Home Director: UNA BERMUDEZPEDRO ([id number])[facility] [place] ([facility])[address] [place] [address] [place] MONOCYTES/100 LEUKOCYTES IN BLOOD-LUCIANA 4 % Low 5-13 [facility] Comment on above: Performed By: #### L [id number], [id number] ####Funeral Home Director: UNA ARCE ([phone])[facility] [place] (SB[facility])[address] [place] [address] [place] MYELOCYTES COUNTED BY MANUAL COUNT [facility] Comment on above: Performed By: #### L [id number], [id number] ####Funeral Home Director: UNA ARCE ([id number])[facility] [place] ([facility])[address] [place] [address] [place] NEUTROPHILS BAND FORM/100 LEUKOCYTES IN BLOOD-CELLAVISI 1 % High <=0 [facility] Comment on above: Performed By: #### L [id number], [id number] ####Funeral Home Director: UNA ARCE ([id number])[facility] [place] ([facility])[address] [place] [address] [place] NEUTROPHILS TOTAL PER COUNTED LEUKOCYTES BY MANUAL COUNT 83 Normal [facility] Comment on above: Performed By: #### L [id number], [id number] ####Funeral Home Director: UNA ARCE ([phone])[facility] [place] ([facility])[address] [place] [address] [place] PROMYELOCYTES TOTAL PER COUNTED LEUKOCYTES BY MANUAL COUNT Normal [facility] Comment on above: Performed By: #### L [id number], [id number] ####Funeral Home Director: UNA ARCE ([id number])[facility] [place] ([facility])[address] [place] MORPHOLOGY IN BLOOD abnormal Normal S [facility] Comment on above: Performed By: #### L [id number], [id number] ####Funeral Home Director: UNA ARCE ([id number])[facility] [place] ([facility])[address] SEGMENTED NEUTROPHILS (10*3/UL) IN BLOOD-CELLAVISION 9.8 10*3/uL High 1.8-7.5 [facility] Comment on above: Performed By: #### L [id number], [id number] ####Funeral Home Director: UNA ARCE ([id number])[facility] [place] ([facility])[address] [place] [address] [place] SEGMENTED NEUTROPHILS/100 LEUKOCYTES-CE 81 % Normal 38-82 [facility] Comment on above: Performed By: #### L [id number], [id number] ####Funeral Home Director: UNA ARCE ([id number])[facility] [place] ([facility])[address] UNCLASSIFIED CELLS TOTAL PER COUNTED LEUKOCYTES BY MANUAL COUNT [facility] Comment on above: Performed By: #### L [id number], [id number] ####Funeral Home Director: UNA ARCE ([phone])[facility] [place] ([facility])[address] [place] [address] [place] VARIANT LYMPHOCYTES TOTAL PER COUNTED LEUKOCYTES BY MANUAL COUNT Normal [facility] Comment on above: Performed By: #### L [id number], [id number] ####Funeral Home Director: UNA ARCE ([phone])[facility] [place] ([facility])[address] [place] [address] [place] Magnesium [Mass/Vol]on 04-12 [facility] No Panel Informationon 04-12 Bands Manual 1 [facility] Eosinophils Manual 7 High 0 - 1 [facility] Interpretation and review of laboratory results Abnormal [facility] Lymphocytes Manual 6 [facility] Monocytes Manual 4 [facility] Neutrophils Manual 83 [facility] Interpretation and review of laboratory results Normal [facility] PHOSPHORUSon 04-12-2025 Phosphate [Mass/Vol] 2.7 mg/dL Normal 2.3-4.7 [facility] Comment on above: Performed By: #### L [id number], [id number], [id number] ####Funeral Home Director: UNA ARCE ([phone])[facility] [place] [facility] [place] [address] [place] Phosphate [Moles/Vol]on Phosphate [Mass/Vol] 2.7 mg/dL 2.3 - 4 .7 mg/dL [facility] Progress Noteon 04-12-2025 Progress Note Normal [facility] Progress Note Normal [facility] Progress Note Normal [facility] Progress Note Normal [facility] Progress Note Normal [facility] CBC W Auto Differential pane l (Bld)on 04-11-2025 Erythrocyte distribution width (RBC) [Ratio] 24.2 % High 11.5 - 15.0 % [facility] Hematocrit (Bld) [Volume fraction] 28.9 % Low 40.0 - 52.0 % [facility] Hemoglobin (Bld) [Mass/Vol] 7.9 g/dL Low 13.0 - 18.0 g/dL [facility] Interpretation and review of laboratory results Abnormal [facility] MCH (RBC) [Entitic mass] 22.7 pg Low 26. 0 - 34.0 pg [facility] MCHC (RBC) [Mass/Vol] 27.3 % Low 30.5 - 36.0 % [facility] MCV (RBC) [Entitic vol] 83 fL 77.0 - 99.0 fL [facility] Platelet mean volume (Bld) [Entitic vol] 9.2 fL 9.0 - 12.7 fL [facility] Platelets (Bld) [#/Vol] 313 10*3/uL 140 - 440 10*3/uL [facility] RBC (Bld) [#/Vol] 3.48 10*6/uL Low 4.40 - 5.9 0 10*6/uL [facility] WBC (Bld) [#/Vol] 13.8 10*3/uL High 3.6 - 10.7 10*3/uL [facility] CBC WITH AUTO DIFFERENTIALon 04-11-2025 Erythrocyte distribution width (RBC) [Ratio] 24.2 % High 11.5-15.0 [facility] Comment on above: Performed By: #### L [id number], [id number] ####Funeral Home Director: UNA ARCE ([phone])[facility])[address] [place] [address] Hematocrit (Bld) [Volume fraction] 28.9 % Low 40.0-52.0 [facility] Comment on above: Performed By: #### L [id number], [id number] ####Funeral Home Director: UNA ARCE ([phone])[facility])[address] [place] [address] Hemoglobin (Bld) [Mass/Vol] 7.9 g/dL Low 13.0-18.0 [facility] Comment on above: Performed By: #### L [id number], [id number] ####Funeral Home Director: UNA ARCE ([id number])[facility] [place] [address] MCH (RBC) [Entitic mass] 22.7 pg Low 26.0-34.0 [facility] Comment on above: Performed By: #### L [id number], [id number] ####Funeral Home Director: UNA ARCE ([id number])[facility] [place] [address] MCHC 27.3 % Low 30.5-36.0 [facility] Comment on above: Performed By: #### L [id number], [id number] ####Funeral Home Director: UNA ARCE ([id number])[place] (SBHLAB)[address] MCV (RBC) [Entitic vol] 83.0 fL Normal 77.0-99.0 S [facility] Comment on above: Performed By: #### L [id number], [id number] ####Funeral Home Director: UNA ARCE ([id number])[facility] [place] (SB[facility])[address] Platelet mean volume (Bld) [Entitic vol] 9.2 fL Normal 9.0-12.7 [facility] Comment on above: Performed By: #### L [id number], [id number] ####Funeral Home Director: UNA ARCE ([phone])[facility] [place] (SB[facility])[address] Platelets (Bld) [#/Vol] 313 10*3/uL Normal 140-440 [facility] Comment on above: Performed By: #### L [id number], [id number] ####Funeral Home Director: UNA ARCE ([phone])[facility] [place] (SBHLAB)[address] RBC (Bld) [#/Vol] 3.48 10*6/uL Low 4.40-5.90 [facility] Comment on above: Performed By: #### L [id number], [id number] ####Funeral Home Director: UNA ARCE ([phone])[facility] [place] ([facility])[address] [place] [address] [place] WBC (Bld) [#/Vol] 13.8 10*3/uL High 3.6-10.7 [facility] Comment on above: Performed By: #### L [id number], [id number] ####Funeral Home Director: UNA ARCE ([phone])[facility] [place] ([facility])[address] COMPREHENSIVE METABOLIC PANE Anant 04-11-2025 Albumin [Mass/Vol] 2.4 g/dL Low 3.4-4.8 [facility] Comment on above: Performed By: #### L AB103, [id number], LAB17 ####Funeral Home Director: UNA ARCE ([phone])[facility] (SB[facility])[address] ALP [Catalytic activity/Vol] 53 U/L Normal 40-150 [facility] Comment on above: Performed By: #### L AB103, [id number], LAB17 ####Funeral Home Director: UNA ARCE ([id number])[facility] (SB[facility])[address] ALT [Catalytic activity/Vol] U/L Normal <40 [facility] Comment on above: Performed By: #### L AB103, [id number], LAB17 ####Funeral Home Director: UNA ARCE ([id number])[facility] (SB[facility])[address] Anion gap [Moles/Vol] 10 mmol/L Normal 3-13 [facility] Comment on above: Performed By: #### L AB103, [id number], LAB17 ####Funeral Home Director: UNA ARCE ([id number])[facility] ([facility])[address] AST [Catalytic activity/Vol] 18 U/L Normal <34 [facility] Comment on above: Performed By: #### L AB103, [id number], LAB17 ####Funeral Home Director: UNA ARCE ([id number])[facility] ([facility])[address] Bilirubin [Mass/Vol] 0.7 mg/dL Normal <1.2 [facility] Comment on above: Performed By: #### L AB103, [id number], LAB17 ####Funeral Home Director: UNA ARCE ([id number])[facility] [place] ([facility])[address] Calcium [Mass/Vol] 8.1 mg/dL Low 8.8-10.0 [facility] Comment on above: Performed By: #### L AB103, [id number], LAB17 ####Funeral Home Director: UNA ARCE ([phone])[facility] [place] ([facility])[address] [place] [address] [place] Chloride [Moles/Vol] 94 mmol/L Low 98-107 [facility] Comment on above: Performed By: #### L AB103, [id number], LAB17 ####Funeral Home Director: UNA ARCE ([id number])[facility] [place] ([facility])[address] CO2 [Moles/Vol] 35 mmol/L High 23-31 [facility] Comment on above: Performed By: #### L AB103, [id number], LAB17 ####Funeral Home Director: UNA ARCE ([id number])[facility] [place] (SB[facility])[address] Creatinine [Mass/Vol] 1.55 mg/dL High 0.72-1.25 [facility] Comment on above: Performed By: #### L AB103, [id number], LAB17 ####Funeral Home Director: UNA ARCE ([phone])[facility]ENTERAngel SANCHEZCHRISTINAN (SBHLAB)[address] [place] [address] [place] GLOMERULAR FILTRATION RATE ML/MIN/1.73 SQ M.PREDICTED 42.5 mL/min/1.73m*2 Low >60.0 [facility] Comment on above: Result Comment: Calc ulation based on the Chronic Kidney Disease Epidemiology Collaboration (CKD-EPI) equation refit without adjustment for race Performed By: #### L AB103, [id number], LAB17 ####Funeral Home Director: UNA ARCE ([phone])[facility] [place] ([facility])[address] [place] [address] [place] Glucose [Mass/Vol] 103 mg/dL Normal 82-115 [facility] Comment on above: Performed By: #### L AB103, [id number], LAB17 ####Funeral Home Director: UAN ARCE ([id number])[facility]ENTERAngel BASHIRMarisol (SB[facility]AB)[address] Potassium [Moles/Vol] 3.6 mmol/L Normal 3.5-5.1 [facility] Comment on above: Result Comment: [facility] potassium values may be up to 0.5 mmol/L lower than serum values. Performed By: #### L AB103, [id number], LAB17 ####Funeral Home Director: UAN ARCE ([phone])[facility] SANCHEZLUIS (SBHLAB)[address] Protein [Mass/Vol] 6.1 g/dL Low 6.4-8.3 [facility] Comment on above: Performed By: #### L AB103, [id number], LAB17 ####Funeral Home Director: UNA ARCE ([id number])[facility] [place] ([facility])[address] Sodium [Moles/Vol] 139 mmol/L Normal 136-145 [facility] Comment on above: Performed By: #### L AB103, [id number], LAB17 ####Funeral Home Director: UNA ARCE ([phone])[facility] ([facility])[address] Urea nitrogen [Mass/Vol] 36 mg/dL High 9-23 [facility] Comment on above: Performed By: #### L AB103, [id number], LAB17 ####Funeral Home Director: UNA ARCE ([id number])[facility] ([facility])[address] Comprehensive metabolic 1998 panelon 04-11-2025 Albumin [Mass/Vol] 2.4 g/dL Low 3.4 - 4.8 g/dL [facility] ALP [Catalytic activity/Vol] 53 U/L 40 - 150 U/L [facility] ALT [Catalytic activity/Vol] U/L NINF - 40 U/L [facility] Anion gap [Moles/Vol] 10 mmol/L 3 - 13 mmol/L [facility] AST [Catalytic activity/Vol] 18 U/L NINF - 34 U/L [facility] Bilirubin [Mass/Vol] 0.7 mg/dL NINF - 1.2 mg/dL [facility] Calcium [Mass/Vol] 8.1 mg/dL Low 8.8 - 10. 0 mg/dL [facility] Chloride [Moles/Vol] 94 mmol/L Low 98 - 10 7 mmol/L [facility] CO2 [Moles/Vol] 35 mmol/L High 23 - 31 mmol/L [facility] Creatinine [Mass/Vol] 1.55 mg/dL High 0.72 - 1.25 mg/dL [facility] GFR/1.73 sq M.predicted (S/P/Bld) [Vol rate/Area] 42.5 mL/min Low - PINF [facility] Glucose [Mass/Vol] 103 mg/dL 82 - 115 mg/dL [facility] Interpretation and review of laboratory results Abnormal [facility] Potassium [Moles/Vol] 3.6 mmol/L 3.5 - 5.1 mmol/L [facility] Protein [Mass/Vol] 6.1 g/dL Low 6.4 - 8.3 g/dL [facility] Sodium [Moles/Vol] 139 mmol/L 136 - 145 mmol/L [facility] Urea nitrogen [Mass/Vol] 36 mg/dL High 9 - 23 mg/d L [facility] Laboratory - Chemistry and C hemistry - challengeon 04-11-2025 Magnesium [Mass/Vol] 1.7 mg/dL 1.6 - 2 .6 mg/dL [facility] Laboratory - Hematology and Cell countson 04-11-2025 Anisocytosis Ql (Bld) Moderate Abnormal (none) [facility] Basophilic stippling LM Ql (Bld) Slight Abnormal (none) [facility] Basophils (Bld) [#/Vol] 0.1 10*3/uL 0.0 - 0.2 10*3/uL [facility] Basophils/100 WBC (Bld) 1 % 0 - 2 % [facility] Dacrocytes LM Ql (Bld) Rare Abnormal (none) [facility] Eosinophils (Bld) [#/Vol] 0.1 10*3/uL 0.0 - 0.5 10*3/uL [facility] Eosinophils/100 WBC (Bld) 1 % 0 - 6 % [facility] Hypochromia Ql (Bld) Slight Abnormal (none) [facility] Lymphocytes (Bld) [#/Vol] 1.4 10*3/uL 1.0 - 4.3 10*3/uL [facility] Lymphocytes/100 WBC (Bld) 10 % Low 15 - 45 % [facility] Monocytes (Bld) [#/Vol] 1.8 10*3/uL High 0.0 - 0.9 10*3/uL [facility] Monocytes/100 WBC (Bld) 13 % 5 - 13 % [facility] Neutrophils (Bld) [#/Vol] 10.5 10*3/uL High 1.8 - 7.5 10*3/uL [facility] Ovalocytes LM Ql (Bld) Slight Abnormal (none) [facility] Poikilocytosis LM Ql (Bld) Slight Abnormal (none) [facility] Polychromasia LM Ql (Bld) Slight Abnormal (none) [facility] RBC morphology finding Nom (Bld) abnormal [facility] Segmented neutrophils/100 WBC (Bld) 76 % 38 - 82 % [facility] Stomatocytes LM Ql (Bld) Slight Abnormal (none) [facility] Target cells LM Ql (Bld) Slight Abnormal (none) [facility] MAGNESIUMon 04-11-2025 Magnesium [Mass/Vol] 1.7 mg/dL Normal 1.6-2.6 [facility] Comment on above: Result Comment: YARELI [place] COMMENTS:Higher values can be expected in females during menses. Performed By: #### L AB103, [id number], LAB17 ####Funeral Home Director: UNA ARCE ([id number])[facility]ITAL[facility] ([facility])[address] [place] [address] MANUAL DIFFERENTIAL (CELLAVI BANDAR)on 04-11-2025 ANISOCYTOSIS PRESENCE IN BLOOD BY LIGHT MICROSCOPY Moderate Abnormal (none) [facility] Comment on above: Performed By: #### L [id number], [id number] ####Funeral Home Director: UNA ARCE ([phone])[facility] [place] ([facility])[address] [place] [address] [place] BAND NEUTROPHILS TOTAL PER COUNTED LEUKOCYTES BY MANUAL COUNT Normal [facility] Comment on above: Performed By: #### L [id number], [id number] ####Funeral Home Director: UNA ARCE ([phone])[facility] [place] ([facility])[address] [place] [address] [place] BASOPHILIC STIPPLING PRESENCE IN BLOOD BY LIGHT MICROSCOPY Slight Abnormal (none) [facility] Comment on above: Performed By: #### L [id number], [id number] ####Funeral Home Director: UNA ARCE ([id number])[facility] [place] ([facility])[address] [place] [address] [place] BASOPHILS (10*3/UL) IN BLOOD-CELLAVISION 0.1 10*3/uL Normal 0.0-0.2 [facility] Comment on above: Performed By: #### L [id number], [id number] ####Funeral Home Director: UNA ARCE ([id number])[facility] [place] ([facility])[address] [place] [address] [place] BASOPHILS TOTAL PER COUNTED LEUKOCYTES BY MANUAL COUNT 1 Normal [facility] Comment on above: Performed By: #### L [id number], [id number] ####Funeral Home Director: UNA ARCE ([id number])[facility] [place] ([facility])[address] [place] [address] [place] BASOPHILS/100 LEUKOCYTES IN BLOOD-CELLAVISION 1 % Normal 0-2 [facility] Comment on above: Performed By: #### L [id number], [id number] ####Funeral Home Director: UNA ARCE ([id number])[facility] [place] ([facility])[address] [place] [address] [place] BLASTS TOTAL PER COUNTED LEUKOCYTES BY MANUAL COUNT Normal [facility] Comment on above: Performed By: #### L [id number], [id number] ####Funeral Home Director: UNA ARCE ([phone])[facility] [place] ([facility])[address] DACROCYTES PRESENCE IN BLOOD BY LIGHT MICROSCOPY Rare Abnormal (none) [facility] Comment on above: Performed By: #### L [id number], [id number] ####Funeral Home Director: UNA ARCE ([id number])[facility] ([facility])[address] EOSINOPHILS (10*3/UL) IN BLOOD-CELLAVISION 0.1 10*3/uL Normal 0.0-0.5 [facility] Comment on above: Performed By: #### L [id number], [id number] ####Funeral Home Director: UNA ARCE ([id number])[facility] (SB[facility])[address] EOSINOPHILS TOTAL PER COUNTED LEUKOCYTES BY MANUAL COUNT 1 Normal 0-1 [facility] Comment on above: Performed By: #### L [id number], [id number] ####Funeral Home Director: UNA ARCE ([phone])[facility] ([facility])[address] [place] [address] [place] EOSINOPHILS/100 LEUKOCYTES IN BLOOD-CELLAVISION 1 % Normal 0-6 [facility] Comment on above: Performed By: #### L [id number], [id number] ####Funeral Home Director: UNA ARCE ([phone])[facility] ([facility])[address] HYPOCHROMIA (PRESENCE) IN BLOOD BY LIGHT MICROSCOPY Slight Abnormal (none) [facility] Comment on above: Performed By: #### L [id number], [id number] ####Funeral Home Director: UNA ARCE ([phone])[facility] ([facility])[address] [place] [address] [place] LYMPHOCYTES (10*3/UL) IN BLOOD-CELLAVISION 1.4 10*3/uL Normal 1.0-4.3 [facility] Comment on above: Performed By: #### L [id number], [id number] ####Funeral Home Director: UNA STAUFFERMELANIE ([phone])[facility] [place] ([facility])[address] [place] [address] [place] LYMPHOCYTES TOTAL PER COUNTED LEUKOCYTES BY MANUAL COUNT 10 Normal [facility] Comment on above: Performed By: #### L [id number], [id number] ####Funeral Home Director: UNA BERMUDEZPEDRO ([id number])[facility] [place] ([facility])[address] [place] [address] [place] LYMPHOCYTES/100 LEUKOCYTES IN BLOOD-CELLAVISION 10 % Low 15-45 [facility] Comment on above: Performed By: #### L [id number], [id number] ####Funeral Home Director: UNA BERMUDEZPEDRO ([id number])[facility] [place] ([facility])[address] [place] [address] [place] METAMYELOCYTES TOTAL PER COUNTED LEUKOCYTES BY MANUAL COUNT Normal [facility] Comment on above: Performed By: #### L [id number], [id number] ####Funeral Home Director: UNA BERMUDEZPEDRO ([phone])[facility] [place] ([facility])[address] [place] [address] [place] MONOCYTES (10*3/UL) IN BLOOD-CELLAVISION 1.8 10*3/uL High 0.0-0.9 [facility] Comment on above: Performed By: #### L [id number], [id number] ####Funeral Home Director: UNA ARCE ([id number])[facility] [place] ([facility])[address] [place] [address] [place] MONOCYTES TOTAL PER COUNTED LEUKOCYTES BY MANUAL COUNT 13 Normal [facility] Comment on above: Performed By: #### L [id number], [id number] ####Funeral Home Director: UNA ARCE ([phone])[facility] [place] ([facility])[address] [place] [address] [place] MONOCYTES/100 LEUKOCYTES IN BLOOD-LUCIANA 13 % Normal 5-13 [facility] Comment on above: Performed By: #### L [id number], [id number] ####Funeral Home Director: UNA ARCE ([phone])[facility] [place] ([facility])[address] [place] [address] [place] MYELOCYTES COUNTED BY MANUAL COUNT [facility] Comment on above: Performed By: #### L [id number], [id number] ####Funeral Home Director: UNA STAUFFERMELANIE ([id number])[facility] [place] ([facility])[address] [place] [address] [place] NEUTROPHILS TOTAL PER COUNTED LEUKOCYTES BY MANUAL COUNT 79 [facility] Comment on above: Performed By: #### L [id number], [id number] ####Funeral Home Director: UNA BERMUDEZSILASMELANIE ([phone])[facility] [place] ([facility])[address] OVALOCYTES PRESENCE IN BLOOD BY LIGHT MICROSCOPY Slight Abnormal (none) [facility] Comment on above: Performed By: #### L [id number], [id number] ####Funeral Home Director: UNA STAUFFERMELANIE ([phone])[facility] [place] ([facility])[address] [place] [address] [place] POIKILOCYTOSIS (PRESENCE) IN BLOOD BY LIGHT MICROSCOPY Slight Abnormal (none) [facility] Comment on above: Performed By: #### L [id number], [id number] ####Funeral Home Director: UNA STAUFFERMELANIE ([phone])[facility] [place] ([facility])[address] [place] [address] [place] POLYCHROMASIA IN BLOOD BY LIGHT MICROSCOPY Slight Abnormal (none) [facility] Comment on above: Performed By: #### L [id number], [id number] ####Funeral Home Director: UNA BERMUDEZSILASMELANIE ([id number])[facility] [place] ([facility])[address] [place] [address] [place] PROMYELOCYTES TOTAL PER COUNTED LEUKOCYTES BY MANUAL COUNT [facility] Comment on above: Performed By: #### L [id number], [id number] ####Funeral Home Director: UNA ARCE ([phone])[facility] [place] ([facility])[address] [place] [address] [place] RBC MORPHOLOGY IN BLOOD abnormal Normal [facility] Comment on above: Performed By: #### L [id number], [id number] ####Funeral Home Director: UNA ARCE ([id number])[facility] [place] ([facility])[address] [place] [address] [place] SEGMENTED NEUTROPHILS (10*3/UL) IN BLOOD-CELLAVISION 10.5 10*3/uL High 1.8-7.5 [facility] Comment on above: Performed By: #### L [id number], [id number] ####Funeral Home Director: UNA ARCE ([phone])[facility] [place] ([facility])[address] [place] [address] [place] SEGMENTED NEUTROPHILS/100 LEUKOCYTES-CE 76 % Normal 38-82 [facility] Comment on above: Performed By: #### L [id number], [id number] ####Funeral Home Director: UNA ARCE ([id number])[facility] [place] ([facility])[address] [place] [address] [place] STOMATOCYTES IN BLOOD BY LIGHT MICROSCOPY Slight Abnormal (none) [facility] Comment on above: Performed By: #### L [id number], [id number] ####Funeral Home Director: UNA ARCE ([phone])[facility] [place] ([facility])[address] [place] [address] [place] TARGET CELLS IN BLOOD BY LIGHT MICROSCOPY Slight Abnormal (none) [facility] Comment on above: Performed By: #### L [id number], [id number] ####Funeral Home Director: UNA AREC ([id number])[facility] [place] ([facility])[address] [place] [address] [place] UNCLASSIFIED CELLS TOTAL PER COUNTED LEUKOCYTES BY MANUAL COUNT Normal [facility] Comment on above: Performed By: #### L [id number], [id number] ####Funeral Home Director: UNA ARCE ([id number])[facility] [place] ([facility])[address] [place] [address] [place] VARIANT LYMPHOCYTES TOTAL PER COUNTED LEUKOCYTES BY MANUAL COUNT Normal [facility] Comment on above: Performed By: #### L [id number], [id number] ####Funeral Home Director: UNA ARCE ([phone])[facility] ([facility] [place] [address] [place] Magnesium [Mass/Vol]on 04-11 [facility] No Panel Informationon 04-11 Basophils Manual 1 [facility] Eosinophils Manual 1 0 - 1 [facility] Interpretation and review of laboratory results Abnormal [facility] Lymphocytes Manual 10 [facility] Monocytes Manual 13 [facility] Neutrophils Manual 79 [facility] Interpretation and review of laboratory results Normal [facility] PHOSPHORUSon 04-11-2025 Phosphate [Mass/Vol] 2.5 mg/dL Normal 2.3-4.7 [facility] Comment on above: Performed By: #### L AB103, [id number], LAB17 ####Funeral Home Director: UNA ARCE ([id number])[facility] ([facility])[address] [place] [address] [place] Phosphate [Moles/Vol]on Phosphate [Mass/Vol] 2.5 mg/dL 2.3 - 4 .7 mg/dL [facility] Progress Noteon 04-11-2025 Progress Note Normal [facility] Progress Note Normal [facility] Progress Note Normal [facility] Progress Note Normal [facility] XR Chest Single viewon 04-11 [facility] Radiology Study observation (narrative) [facility] Chest Single viewOrdered By: Katalina Corona on 04-11-2025 [facility] Work Phone: [phone] 04-10-2025 [id number] Normal [facility] CBC W Auto Differential pane l (Bld)on 04-10-2025 Erythrocyte distribution width (RBC) [Ratio] 22.9 % High 11.5 - 15.0 % [facility] Hematocrit (Bld) [Volume fraction] 26.1 % Low 40.0 - 52.0 % [facility] Hemoglobin (Bld) [Mass/Vol] 7.2 g/dL Low 13.0 - 18.0 g/dL [facility] Interpretation and review of laboratory results Abnormal [facility] MCH (RBC) [Entitic mass] 22.6 pg Low 26. 0 - 34.0 pg [facility] MCHC (RBC) [Mass/Vol] 27.6 % Low 30.5 - 36.0 % [facility] MCV (RBC) [Entitic vol] 82.1 fL 77.0 - 99.0 fL [facility] Platelet mean volume (Bld) [Entitic vol] 9.1 fL 9.0 - 12.7 fL [facility] Platelets (Bld) [#/Vol] 294 10*3/uL 140 - 440 10*3/uL [facility] RBC (Bld) [#/Vol] 3.18 10*6/uL Low 4.40 - 5.9 0 10*6/uL [facility] WBC (Bld) [#/Vol] 12.4 10*3/uL High 3.6 - 10.7 10*3/uL [facility] CBC WITH AUTO DIFFERENTIALon 04-10-2025 Erythrocyte distribution width (RBC) [Ratio] 22.9 % High 11.5-15.0 [facility] Comment on above: Performed By: #### L [id number], [id number] ####Funeral Home Director: UNA ARCE ([phone])[facility] ([facility])[address] [place] [address] Hematocrit (Bld) [Volume fraction] 26.1 % Low 40.0-52.0 [facility] Comment on above: Performed By: #### L [id number], [id number] ####Funeral Home Director: UNA ARCE ([phone])[facility] Hemoglobin (Bld) [Mass/Vol] 7.2 g/dL Low 13.0-18.0 [facility] Comment on above: Performed By: #### L [id number], [id number] ####Funeral Home Director: UNA [phone])[facility] ([facility])[address] MCH (RBC) [Entitic mass] 22.6 pg Low 26.0-34.0 [facility] Comment on above: Performed By: #### L [id number], [id number] ####Funeral Home Director: UNA ARCE ([phone])[facility] ([facility])[address] MCHC 27.6 % Low 30.5-36.0 [facility] Comment on above: Performed By: #### L [id number], [id number] ####Funeral Home Director: UNA ARCE ([id number])[facility] ([facility])[address] MCV (RBC) [Entitic vol] 82.1 fL Normal 77.0-99.0 S [facility] Comment on above: Performed By: #### Gilbert [id number], [id number] ####Funeral Home Director: UNA ARCE ([phone])[facility] ([facility])[address] Platelet mean volume (Bld) [Entitic vol] 9.1 fL Normal 9.0-12.7 [facility] Comment on above: Performed By: #### L [id number], [id number] ####Funeral Home Director: UNA ARCE ([phone])[facility] ([facility])[address] [place] [address] [place] Platelets (Bld) [#/Vol] 294 10*3/uL Normal 140-440 [facility] Comment on above: Performed By: #### L [id number], [id number] ####Funeral Home Director: UNA ARCE ([id number])[facility]ENTERAngel SANC[facility]ZNEW MEXICO [facility]N ([facility])[address] RBC (Bld) [#/Vol] 3.18 10*6/uL Low 4.40-5.90 [facility] Comment on above: Performed By: #### L [id number], [id number] ####Funeral Home Director: UNA ARCE ([id number])[facility]ENTERA LAURANEW [facility] ([facility])[address] WBC (Bld) [#/Vol] 12.4 10*3/uL High 3.6-10.7 [facility] Comment on above: Performed By: #### L [id number], [id number] ####Funeral Home Director: UNA ARCE ([phone])[facility] ([facility])[address] COMPREHENSIVE METABOLIC PANE Anant 04-10-2025 Albumin [Mass/Vol] 2.2 g/dL Low 3.4-4.8 [facility] Comment on above: Performed By: #### L AB103, [id number], LAB17 ####Funeral Home Director: UNA ARCE ([id number])[facility] ([facility])[address] ALP [Catalytic activity/Vol] 50 U/L Normal 40-150 [facility] Comment on above: Performed By: #### L AB103, [id number], LAB17 ####Funeral Home Director: UNA ARCE ([phone])[facility] ([facility])[address] ALT [Catalytic activity/Vol] U/L Normal <40 [facility] Comment on above: Performed By: #### L AB103, [id number], LAB17 ####Funeral Home Director: UNA ARCE ([id number])[facility] ([facility])[address] Anion gap [Moles/Vol] 12 mmol/L Normal 3-13 [facility] Comment on above: Performed By: #### L AB103, [id number], LAB17 ####Funeral Home Director: UNA ARCE ([id number])[facility] ([facility])[address] AST [Catalytic activity/Vol] 16 U/L Normal <34 [facility] Comment on above: Performed By: #### L AB103, [id number], LAB17 ####Funeral Home Director: UNA ARCE ([phone])[facility] ([facility])[address] Bilirubin [Mass/Vol] 0.6 mg/dL Normal <1.2 [facility] Comment on above: Performed By: #### Gilbert ABLilly, [id number], LAB17 ####Funeral Home Director: UNA ARCE ([id number])[facility] [place] ([facility])[address] Calcium [Mass/Vol] 8.0 mg/dL Low 8.8-10.0 [facility] Comment on above: Performed By: #### Gilbert AB103, [id number], LAB17 ####Funeral Home Director: UNA ARCE ([id number])[facility] [place] ([facility])[address] Chloride [Moles/Vol] 95 mmol/L Low 98-107 [facility] Comment on above: Performed By: #### Gilbert SEPULVEDA, [id number], LAB17 ####Funeral Home Director: UNA ARCE ([phone])[facility] [place] ([facility])[address] CO2 [Moles/Vol] 35 mmol/L High 23-31 [facility] Comment on above: Performed By: #### Gilbert ABLilly, QJM243, LAB17 ####Funeral Home Director: UNA ARCE ([phone])[facility] [place] ([facility])[address] [place] [address] [place] Creatinine [Mass/Vol] 1.65 mg/dL High 0.72-1.25 [facility] Comment on above: Performed By: #### L AB103, [id number], LAB17 ####Funeral Home Director: UNA ARCE ([id number])[facility] [place] ([facility])[address] GLOMERULAR FILTRATION RATE ML/MIN/1.73 SQ M.PREDICTED 39.4 mL/min/1.73m*2 Low >60.0 [facility] Comment on above: Result Comment: Calc ulation based on the Chronic Kidney Disease Epidemiology Collaboration (CKD-EPI) equation refit without adjustment for race Performed By: #### L AB103, [id number], LAB17 ####Funeral Home Director: UNA ARCE ([phone])[facility]ENTERAngel [place] ([facility])[address] Glucose [Mass/Vol] 98 mg/dL Normal 82-115 [facility] Comment on above: Performed By: #### L AB103, [id number], LAB17 ####Funeral Home Director: UNA ARCE ([phone])[facility] ([facility])[address] Potassium [Moles/Vol] 3.2 mmol/L Low 3.5-5.1 [facility] Comment on above: Result Comment: [facility] potassium values may be up to 0.5 mmol/L lower than serum values. Performed By: #### L AB103, [id number], LAB17 ####Funeral Home Director: UNA ARCE ([phone])[facility]ENTERAngel [place] (HLAB)[address] Protein [Mass/Vol] 5.5 g/dL Low 6.4-8.3 [facility] Comment on above: Performed By: #### L AB103, [id number], LAB17 ####Funeral Home Director: UNA ARCE ([phone])[facility] ([facility])[address] [place] [address] [place] Sodium [Moles/Vol] 142 mmol/L Normal 136-145 [facility] Comment on above: Performed By: #### L AB103, [id number], LAB17 ####Funeral Home Director: UNA ARCE ([id number])[facility] ([facility])[address] [place] [address] [place] Urea nitrogen [Mass/Vol] 32 mg/dL High 9-23 [facility] Comment on above: Performed By: #### L AB103, [id number], LAB17 ####Funeral Home Director: UNA ARCE ([phone])[facility] ([facility])[address] [place] [address] Comprehensive metabolic 1998 panelon 04-10-2025 Albumin [Mass/Vol] 2.2 g/dL Low 3.4 - 4.8 g/dL [facility] ALP [Catalytic activity/Vol] 50 U/L 40 - 150 U/L [facility] ALT [Catalytic activity/Vol] U/L NINF - 40 U/L [facility] Anion gap [Moles/Vol] 12 mmol/L 3 - 13 mmol/L [facility] AST [Catalytic activity/Vol] 16 U/L NINF - 34 U/L [facility] Bilirubin [Mass/Vol] 0.6 mg/dL NINF - 1.2 mg/dL [facility] Calcium [Mass/Vol] 8 mg/dL Low 8.8 - 10. 0 mg/dL [facility] Chloride [Moles/Vol] 95 mmol/L Low 98 - 10 7 mmol/L [facility] CO2 [Moles/Vol] 35 mmol/L High 23 - 31 mmol/L [facility] Creatinine [Mass/Vol] 1.65 mg/dL High 0.72 - 1.25 mg/dL [facility] GFR/1.73 sq M.predicted (S/P/Bld) [Vol rate/Area] 39.4 mL/min Low - PINF [facility] Glucose [Mass/Vol] 98 mg/dL 82 - 115 mg/dL [facility] Interpretation and review of laboratory results Abnormal [facility] Potassium [Moles/Vol] 3.2 mmol/L Low 3.5 - 5.1 mmol/L [facility] Protein [Mass/Vol] 5.5 g/dL Low 6.4 - 8.3 g/dL [facility] Sodium [Moles/Vol] 142 mmol/L 136 - 145 mmol/L [facility] Urea nitrogen [Mass/Vol] 32 mg/dL High 9 - 23 mg/d L [facility] Laboratory - Chemistry and C hemistry - challengeon 04-10-2025 Magnesium [Mass/Vol] 1.7 mg/dL 1.6 - 2 .6 mg/dL [facility] Laboratory - Hematology and Cell countson 04-10-2025 Anisocytosis Ql (Bld) Slight Abnormal (none) [facility] Band form neutrophils (Bld) [#/Vol] 0.2 10*3/uL High NINF - 0.0 10*3/uL [facility] Band form neutrophils/100 WBC (Bld) 2 % High NINF - 0 % [facility] Basophils (Bld) [#/Vol] 0.5 10*3/uL High 0.0 - 0.2 10*3/uL [facility] Basophils/100 WBC (Bld) 4 % High 0 - 2 % [facility] Eosinophils (Bld) [#/Vol] 0.5 10*3/uL 0.0 - 0.5 10*3/uL [facility] Eosinophils/100 WBC (Bld) 4 % 0 - 6 % [facility] Lymphocytes (Bld) [#/Vol] 0.9 10*3/uL Low 1.0 - 4.3 10*3/uL [facility] Lymphocytes/100 WBC (Bld) 7 % Low 15 - 45 % [facility] Monocytes (Bld) [#/Vol] 0.5 10*3/uL 0.0 - 0.9 10*3/uL [facility] Monocytes/100 WBC (Bld) 4 % Low 5 - 13 % [facility] Myelocytes (Bld) [#/Vol] 0.1 10*3/uL High SELENE F - 0.0 10*3/uL [facility] Myelocytes/100 WBC (Bld) 1 % High NINF - 0 % [facility] Neutrophils (Bld) [#/Vol] 9.9 10*3/uL High 1.8 - 7.5 10*3/uL [facility] Poikilocytosis LM Ql (Bld) Slight Abnormal (none) [facility] RBC morphology finding Nom (Bld) abnormal [facility] Segmented neutrophils/100 WBC (Bld) 78 % 38 - 82 % [facility] Stomatocytes LM Ql (Bld) Moderate Abnormal (none) [facility] MAGNESIUMon 04-10-2025 Magnesium [Mass/Vol] 1.7 mg/dL Normal 1.6-2.6 [facility] Comment on above: Result Comment: YARELI [place] COMMENTS:Higher values can be expected in females during menses. Performed By: #### L AB103, YHR062, LAB17 ####Funeral Home Director: UNA BERMUDEZPEDRO ([phone])[facility] [place] ([facility])[address] [place] [address] [place] MANUAL DIFFERENTIAL (CELLAVI BANDAR)on 04-10-2025 ANISOCYTOSIS PRESENCE IN BLOOD BY LIGHT MICROSCOPY Slight Abnormal (none) [facility] Comment on above: Performed By: #### L [id number], [id number] ####Funeral Home Director: UNA BERMUDEZPEDRO ([phone])[facility] [place] ([facility])[address] BAND NEUTROPHILS TOTAL PER COUNTED LEUKOCYTES BY MANUAL COUNT 2 Normal [facility] Comment on above: Performed By: #### L [id number], [id number] ####Funeral Home Director: UNA BERMUDEZPEDRO ([phone])[facility] [place] ([facility])[address] [place] [address] [place] BANDS (10*3/UL) IN BLOOD-CELLAVISION 0.2 10*3/uL High <=0.0 [facility] Comment on above: Performed By: #### L [id number], [id number] ####Funeral Home Director: UNA BERMUDEZPEDRO ([id number])[facility] [place] ([facility])[address] [place] [address] [place] BASOPHILS (10*3/UL) IN BLOOD-CELLAVISION 0.5 10*3/uL High 0.0-0.2 [facility] Comment on above: Performed By: #### L [id number], [id number] ####Funeral Home Director: UNA STAUFFERMELANIE ([phone])[facility] [place] ([facility])[address] [place] [address] [place] BASOPHILS TOTAL PER COUNTED LEUKOCYTES BY MANUAL COUNT 4 Normal [facility] Comment on above: Performed By: #### L [id number], [id number] ####Funeral Home Director: UNA STAUFFERMELANIE ([id number])[facility] [place] ([facility])[address] [place] [address] [place] BASOPHILS/100 LEUKOCYTES IN BLOOD-CELLAVISION 4 % High 0-2 [facility] Comment on above: Performed By: #### L SH6379, [id number] ####Funeral Home Director: UNA ARCE ([id number])[facility] [place] ([facility])[address] [place] [address] [place] BLASTS TOTAL PER COUNTED LEUKOCYTES BY MANUAL COUNT Normal [facility] Comment on above: Performed By: #### L ST8015, [id number] ####Funeral Home Director: UNA STAUFFERMELANIE ([phone])[facility] [place] ([facility])[address] [place] [address] [place] EOSINOPHILS (10*3/UL) IN BLOOD-CELLAVISION 0.5 10*3/uL Normal 0.0-0.5 [facility] Comment on above: Performed By: #### L [id number], [id number] ####Funeral Home Director: UNA ARCE ([phone])[facility] [place] ([facility])[address] [place] [address] [place] EOSINOPHILS TOTAL PER COUNTED LEUKOCYTES BY MANUAL COUNT 4 High 0-1 [facility] Comment on above: Performed By: #### L [id number], [id number] ####Funeral Home Director: UNA ARCE ([phone])[facility] [place] ([facility])[address] [place] [address] [place] EOSINOPHILS/100 LEUKOCYTES IN BLOOD-CELLAVISION 4 % Normal 0-6 [facility] Comment on above: Performed By: #### L [id number], [id number] ####Funeral Home Director: UNA ARCE ([id number])[facility] [place] ([facility])[address] [place] [address] [place] LYMPHOCYTES (10*3/UL) IN BLOOD-CELLAVISION 0.9 10*3/uL Low 1.0-4.3 [facility] Comment on above: Performed By: #### L II3811, [id number] ####Funeral Home Director: UNA ARCE ([id number])[facility] [place] ([facility])[address] [place] [address] [place] LYMPHOCYTES TOTAL PER COUNTED LEUKOCYTES BY MANUAL COUNT 7 Normal [facility] Comment on above: Performed By: #### L [id number], [id number] ####Funeral Home Director: UNA ARCE ([phone])[facility] [place] ([facility])[address] [place] [address] [place] LYMPHOCYTES/100 LEUKOCYTES IN BLOOD-CELLAVISION 7 % Low 15-45 [facility] Comment on above: Performed By: #### L RQ7290, [id number] ####Funeral Home Director: UNA MOHRCER ([id number])[facility] [place] ([facility])[address] [place] [address] [place] METAMYELOCYTES TOTAL PER COUNTED LEUKOCYTES BY MANUAL COUNT Normal [facility] Comment on above: Performed By: #### L [id number], [id number] ####Funeral Home Director: UNA ARCE ([id number])[facility] [place] ([facility])[address] [place] [address] [place] MONOCYTES (10*3/UL) IN BLOOD-CELLAVISION 0.5 10*3/uL Normal 0.0-0.9 [facility] Comment on above: Performed By: #### L [id number], [id number] ####Funeral Home Director: UNA ARCE ([phone])[facility] [place] ([facility])[address] [place] [address] [place] MONOCYTES TOTAL PER COUNTED LEUKOCYTES BY MANUAL COUNT 4 Normal [facility] Comment on above: Performed By: #### L [id number], [id number] ####Funeral Home Director: UNA ARCE ([phone])[facility] [place] ([facility])[address] [place] [address] [place] MONOCYTES/100 LEUKOCYTES IN BLOOD-LUCIANA 4 % Low 5-13 [facility] Comment on above: Performed By: #### L [id number], [id number] ####Funeral Home Director: UNA ARCE ([id number])[facility] [place] ([facility])[address] [place] [address] [place] MYELOCYTES (10*3/UL) IN BLOOD-CELLAVISION 0.1 10*3/uL High <=0.0 [facility] Comment on above: Performed By: #### L [id number], [id number] ####Funeral Home Director: UNA ARCE ([phone])[facility] [place] ([facility])[address] [place] [address] [place] MYELOCYTES COUNTED BY MANUAL COUNT 1 Normal [facility] Comment on above: Performed By: #### L GS8464, [id number] ####Funeral Home Director: UNA ARCE ([id number])[facility] [place] ([facility])[address] [place] [address] [place] MYELOCYTES/100 LEUKOCYTES IN BLOOD-CELLAVISION 1 % High <=0 [facility] Comment on above: Performed By: #### L [id number], [id number] ####Funeral Home Director: UNA ARCE ([phone])[facility] [place] ([facility])[address] [place] [address] [place] NEUTROPHILS BAND FORM/100 LEUKOCYTES IN BLOOD-CELLAVISI 2 % High <=0 [facility] Comment on above: Performed By: #### L [id number], [id number] ####Funeral Home Director: UNA ARCE ([id number])[facility] [place] ([facility])[address] [place] [address] [place] NEUTROPHILS TOTAL PER COUNTED LEUKOCYTES BY MANUAL COUNT 79 Normal [facility] Comment on above: Performed By: #### L [id number], [id number] ####Funeral Home Director: UNA ARCE ([id number])[facility] [place] ([facility])[address] [place] [address] [place] POIKILOCYTOSIS (PRESENCE) IN BLOOD BY LIGHT MICROSCOPY Slight Abnormal (none) [facility] Comment on above: Performed By: #### L [id number], [id number] ####Funeral Home Director: UNA ARCE ([id number])[facility] [place] ([facility])[address] [place] [address] [place] PROMYELOCYTES TOTAL PER COUNTED LEUKOCYTES BY MANUAL COUNT Normal [facility] Comment on above: Performed By: #### L AD3962, [id number] ####Funeral Home Director: UNA ARCE ([id number])[facility] [place] ([facility])[address] [place] [address] [place] RBC MORPHOLOGY IN BLOOD abnormal Normal S [facility] Comment on above: Performed By: #### L BY6849, [id number] ####Funeral Home Director: UNA ARCE ([id number])[facility] [place] ([facility])[address] [place] [address] [place] SEGMENTED NEUTROPHILS (10*3/UL) IN BLOOD-CELLAVISION 9.9 10*3/uL High 1.8-7.5 [facility] Comment on above: Performed By: #### L [id number], [id number] ####Funeral Home Director: UNA ARCE ([phone])[facility] [place] ([facility])[address] [place] [address] [place] SEGMENTED NEUTROPHILS/100 LEUKOCYTES-CE 78 % Normal 38-82 [facility] Comment on above: Performed By: #### L NQ2589, [id number] ####Funeral Home Director: UNA ARCE ([phone])[facility] [place] ([facility])[address] [place] [address] [place] STOMATOCYTES IN BLOOD BY LIGHT MICROSCOPY Moderate Abnormal (none) [facility] Comment on above: Performed By: #### L [id number], [id number] ####Funeral Home Director: UNA ARCE ([phone])[facility] [place] ([facility])[address] [place] [address] [place] UNCLASSIFIED CELLS TOTAL PER COUNTED LEUKOCYTES BY MANUAL COUNT Normal [facility] Comment on above: Performed By: #### L [id number], [id number] ####Funeral Home Director: UNA ARCE ([id number])[facility] [place] ([facility])[address] VARIANT LYMPHOCYTES TOTAL PER COUNTED LEUKOCYTES BY MANUAL COUNT Normal [facility] Comment on above: Performed By: #### L [id number], [id number] ####Funeral Home Director: UNA ARCE ([id number])[facility] [place] ([facility])[address] [place] [address] [place] Magnesium [Mass/Vol]on 04-10 [facility] No Panel Informationon 04-10 Bands Manual 2 [facility] Basophils Manual 4 [facility] Eosinophils Manual 4 High 0 - 1 [facility] Interpretation and review of laboratory results Abnormal [facility] Lymphocytes Manual 7 [facility] Monocytes Manual 4 [facility] Myelocytes Manual 1 [facility] ealth Neutrophils Manual 79 [facility] Interpretation and review of laboratory results Normal [facility] PHOSPHORUSon 04-10-2025 Phosphate [Mass/Vol] 2.6 mg/dL Normal 2.3-4.7 [facility] Comment on above: Performed By: #### L AB103, [id number], LAB17 ####Funeral Home Director: UNA ARCE ([id number])[facility] [place] ([facility])[address] [place] [address] [place] Phosphate [Moles/Vol]on Phosphate [Mass/Vol] 2.6 mg/dL 2.3 - 4 .7 mg/dL [facility] Progress Noteon 04-10-2025 Progress Note Normal [facility] Progress Note Normal [facility] Progress Note Normal [facility] Progress Note Will assume care as patient is being transferred out of ICU. D/w Dr Torres via secure chat Normal [facility] Progress Note Normal [facility] Progress Note Normal [facility] [id number] 04-09-2025 [id number] Normal [facility] [id number] Normal [facility] BODY FLUID CELL COUNT WITH R EFLEX DIFFon 04-09-2025 RBC, BODY FLUID (AUTOMATED) <0.002 High 0.000 [facility] Comment on above: Performed By: #### L AB209, [id number] ####Funeral Home Director: UNA ARCE ([phone])[facility]ENTERAngel [facility]BNEW [facility] (SB[facility])[address] WBC, BODY FLUID (AUTOMATED) 0.341 x10*3/ul High <=0.005 [facility] Comment on above: Performed By: #### L AB209, [id number] ####Funeral Home Director: UNA ARCE ([id number])[facility]A [facility]BNEW [facility] ([facility])[address] RBC, BODY FLUID (AUTOMATED) <0.002 High 0.000 [facility] Comment on above: Performed By: #### L AB209, [id number] ####Funeral Home Director: UNA ARCE ([id number])[facility] ([facility])[address] TYPE OF BODY FLUID Pleural Fluid Normal [facility] Comment on above: Performed By: #### L AB209, [id number] ####Funeral Home Director: UNA ARCE ([phone])[facility] ([facility])[address] Result Comment: YARELI [place] COMMENTS:This test was developed and its performance characteristics determined by [facility]. It has not been cleared or approved by the [place] Food and Drug Administration. This test was performed in a CLIA certified laboratory and is intended for clinical purposes.Exudates are defined as meeting one of the following criteria: (a) Pleural rfzkv-ay-nqvaq protein ratio of >0.5, (b) pleural tlvzs-to-zinqz LDH ratio of >0.6, or (c)a pleural fluid LDH activity that is >2/3 the upper limit of a normal serum LDH activity (Light???s criteria). Performed By: #### L AB188, DPN694, GWO910, [id number] ####Funeral Home Director: ANAHY AVILA ([id number])[facility] ([facility])[address] [place] [address] Result Comment: YARELI [place] COMMENTS:This test was developed and its performance characteristics determined by [facility]. It has not been cleared or approved [...] developed and its performance characteristics determined by [facility]. It has not been cleared or approved by the [place] Food and Drug Administration. This test was performed in a CLIA certified laboratory and is intended for clinical purposes.Pleural lztct-ib-eawcy protein ratio of >0.5 is one of Light???s criteria for an exudate. Heart failure associated misclassifications (by Light???s criteria) may be differentiated as transudative effusions by subsequently evaluating a oyyoi-js-vyxqcfp albumin gradient (>1.2 g/dL) and/or a tmlyv-cm-dzlpx protein gradient (>3.1 g/dL). Result Comment: YARELI [place] COMMENTS:This test was developed and its performance characteristics determined by [employer]. It has not been cleared or approved by the US Food and Drug Administration. This test was performed in a CLIA certified laboratory and is intended for clinical purposes. WBC, BODY FLUID (AUTOMATED) 0.112 x10*3/ul High <=0.005 [facility] Comment on above: Performed By: #### L AB209, [id number] ####Funeral Home Director: UNA ARCE ([phone])[facility] ([facility])[address] [place] [address] BODY FLUID DIFFERENTIALon CELLS COUNTED TOTAL (#) IN BODY FLUID 100 Normal [facility] Comment on above: Performed By: #### L AB209, [id number] ####Funeral Home Director: UNA ARCE ([phone])[facility] ([facility])[address] [place] [address] LYMPHOCYTES/100 LEUKOCYTES IN BODY FLUID BY MAN CT 51 % Normal [facility] Comment on above: Performed By: #### L AB209, [id number] ####Funeral Home Director: UNA ARCE ([phone])[facility] ([facility])[address] [place] [address] [place] MONOCYTES+MACROPHAGES/10 0 WBC IN BODY FLUID BY MAN CT 36 % Normal [facility] Comment on above: Performed By: #### L AB209, [id number] ####Funeral Home Director: UNA ARCE ([id number])[facility] ([facility])[address] [place] [address] [place] Neutrophils/100 WBC (Bld) 13 % Normal [facility] Comment on above: Performed By: #### L AB209, [id number] ####Funeral Home Director: UNA STAUFFERMELANIE ([phone])[facility] ([facility])[address] [place] [address] [place] CELLS COUNTED TOTAL (#) IN BODY FLUID 100 Normal [facility] Comment on above: Performed By: #### L AB209, [id number] ####Funeral Home Director: UAN STAUFFERMELANIE ([phone])[facility] ([facility])[address] [place] [address] [place] LYMPHOCYTES/100 LEUKOCYTES IN BODY FLUID BY MAN CT 31 % Normal [facility] Comment on above: Performed By: #### L AB209, [id number] ####Funeral Home Director: UNA ARCE ([phone])[facility] ([facility])[address] [place] [address] [place] MESOTHELIAL CELLS/100 LEUKOCYTES IN BODY FLUID BY MANUAL COUNT 2 % Normal [facility] Comment on above: Performed By: #### L AB209, [id number] ####Funeral Home Director: UNA ARCE ([id number])[facility] ([facility])[address] [place] [address] [place] MONOCYTES+MACROPHAGES/10 0 WBC IN BODY FLUID BY MAN CT 37 % Normal [facility] Comment on above: Performed By: #### L AB209, [id number] ####Funeral Home Director: UNA ARCE ([id number])[facility] ([facility])[address] Neutrophils/100 WBC (Bld) 30 % Normal [facility] Comment on above: Performed By: #### L AB209, [id number] ####Funeral Home Director: UNA ARCE ([phone])[facility] [place] ([facility])[address] CBC W Auto Differential pane l (Bld)Ordered By: Jg Sarabia on 04-09-2025 Erythrocyte distribution width (RBC) [Ratio] 21.8 % High 11.5 - 15.0 % [facility] Hematocrit (Bld) [Volume fraction] 27.7 % Low 40.0 - 52.0 % [facility] Hemoglobin (Bld) [Mass/Vol] 7.5 g/dL Low 13.0 - 18.0 g/dL [facility] MCH (RBC) [Entitic mass] 22.6 pg Low 26. 0 - 34.0 pg [facility] MCHC (RBC) [Mass/Vol] 27.1 % Low 30.5 - 36.0 % [facility] MCV (RBC) [Entitic vol] 83.4 fL 77.0 - 99.0 fL [facility] [place] Platelet mean volume (Bld) [Entitic vol] 9.4 fL 9.0 - 12.7 fL [facility] Platelets (Bld) [#/Vol] 279 10*3/uL 140 - 440 10*3/uL [facility] RBC (Bld) [#/Vol] 3.32 10*6/uL Low 4.40 - 5.9 0 10*6/uL [facility] WBC (Bld) [#/Vol] 11.2 10*3/uL High 3.6 - 10.7 10*3/uL [facility] CBC WITH AUTO DIFFERENTIALon 04-09-2025 Erythrocyte distribution width (RBC) [Ratio] 21.8 % High 11.5-15.0 [facility] Comment on above: Performed By: #### L [id number], [id number] ####Funeral Home Director: UNA ARCE ([id number])[facility]A BARBNEW [facility]EX[facility]N ([facility])[address] Hematocrit (Bld) [Volume fraction] 27.7 % Low 40.0-52.0 [facility] Comment on above: Performed By: #### L [id number], [id number] ####Funeral Home Director: UNA ARCE ([id number])[facility] ([facility])[address] Hemoglobin (Bld) [Mass/Vol] 7.5 g/dL Low 13.0-18.0 [facility] Comment on above: Performed By: #### L [id number], [id number] ####Funeral Home Director: UNA ARCE ([phone])[facility]ENTERAngel [facility] ([facility])[address] MCH (RBC) [Entitic mass] 22.6 pg Low 26.0-34.0 [facility] Comment on above: Performed By: #### L [id number], [id number] ####Funeral Home Director: UNA ARCE ([id number])[facility]ENTERAngel [facility]ITALMar[facility] ([facility])[address] MCHC 27.1 % Low 30.5-36.0 [facility] Comment on above: Performed By: #### L [id number], [id number] ####Funeral Home Director: UNA ARCE ([id number])[facility] ([facility])[address] MCV (RBC) [Entitic vol] 83.4 fL Normal 77.0-99.0 [facility] Comment on above: Performed By: #### L [id number], [id number] ####Funeral Home Director: UNA ARCE ([id number])[facility] ([facility])[address] Platelet mean volume (Bld) [Entitic vol] 9.4 fL Normal 9.0-12.7 [facility] Comment on above: Performed By: #### L [id number], [id number] ####Funeral Home Director: UNA ARCE ([id number])[facility] ([facility])[address] Platelets (Bld) [#/Vol] 279 10*3/uL Normal 140-440 [facility] Comment on above: Performed By: #### L [id number], [id number] ####Funeral Home Director: UNA ARCE ([phone])[facility] CENTERAngel SANCHEZNEW MEXICO BEHAV[facility] HEALTH INSTITUTE AT L[facility] VEGASN (SBHLAB)[address] RBC (Bld) [#/Vol] 3.32 10*6/uL Low 4.40-5.90 [facility] Comment on above: Performed By: #### L [id number], [id number] ####Funeral Home Director: UNA ARCE ([phone])[facility] CENTERAngel SANCHEZNEW MEXICO [facility] IN[facility] AT L[facility] VEGASN (SB[facility]AB)[address] WBC (Bld) [#/Vol] 11.2 10*3/uL High 3.6-10.7 [facility] Comment on above: Performed By: #### L [id number], [id number] ####Funeral Home Director: UNA ARCE ([id number])[facility]ENTERAngel SANCHEZNEW MEXICO [facility]N (SB[facility]AB)[address] COMPREHENSIVE METABOLIC PANE Anant 04-09-2025 Albumin [Mass/Vol] 2.2 g/dL Low 3.4-4.8 [facility] Comment on above: Performed By: #### L AB103, [id number], LAB17 ####Funeral Home Director: UNA ARCE ([id number])[facility] CENTERAngel SANCHEZNEW MEXICO [facility] IN[facility] AT L[facility]ASN (SBHL[facility])[address] ALP [Catalytic activity/Vol] 56 U/L Normal 40-150 [facility] Comment on above: Performed By: #### L AB103, [id number], LAB17 ####Funeral Home Director: UNA ARCE ([id number])[facility]ENTERAngel SANCHEZNEW MEXICO [facility]N ([facility])[address] ALT [Catalytic activity/Vol] U/L Normal <40 [facility] Comment on above: Performed By: #### L AB103, [id number], LAB17 ####Funeral Home Director: UNA ARCE ([phone])[facility]ENTERAngel BASHIRN (SBHLAB)[address] Anion gap [Moles/Vol] 10 mmol/L Normal 3-13 [facility] Comment on above: Performed By: #### L AB103, [id number], LAB17 ####Funeral Home Director: UNA ARCE ([phone])[facility]ENTERAngel S[facility]ZNEW MEX[facility]N ([facility])[address] AST [Catalytic activity/Vol] 18 U/L Normal <34 [facility] Comment on above: Performed By: #### L AB103, [id number], LAB17 ####Funeral Home Director: UNA STAUFFERMELANIE ([phone])[facility]ENTERAngel BASHIRN (SBHLAB)[address] Bilirubin [Mass/Vol] 0.7 mg/dL Normal <1.2 [facility] Comment on above: Performed By: #### L AB103, [id number], LAB17 ####Funeral Home Director: UNA ARCE ([id number])[facility]ENTERAngel SANC[facility]ZNEW MEXICO [facility]ASN (HLAB)[address] Calcium [Mass/Vol] 8.1 mg/dL Low 8.8-10.0 [facility] Comment on above: Performed By: #### L AB103, [id number], LAB17 ####Funeral Home Director: UNA ARCE ([id number])[facility]ENTERAngel SANCHEZNEW MEXICO [facility]N ([facility])[address] [place] [address] [place] Chloride [Moles/Vol] 98 mmol/L Normal 98-107 [facility] Comment on above: Performed By: #### L AB103, [id number], LAB17 ####Funeral Home Director: UNA ARCE ([phone])[facility]ENTERAngel BASHIRN (SBHLAB)[address] [place] [address] [place] CO2 [Moles/Vol] 34 mmol/L High 23-31 [facility] Comment on above: Performed By: #### L AB103, JKA202, LAB17 ####Funeral Home Director: UNA ARCE ([phone])[facility] ([facility])[address] Creatinine [Mass/Vol] 1.53 mg/dL High 0.72-1.25 [facility] Comment on above: Performed By: #### L AB103, HRJ528, LAB17 ####Funeral Home Director: UNA ARCE ([phone])[facility] ([facility])[address] GLOMERULAR FILTRATION RATE ML/MIN/1.73 SQ M.PREDICTED 43.2 mL/min/1.73m*2 Low >60.0 [facility] Comment on above: Result Comment: Calc ulation based on the Chronic Kidney Disease Epidemiology Collaboration (CKD-EPI) equation refit without adjustment for race Performed By: #### L ABLilly, ANU626, LAB17 ####Funeral Home Director: UNA ARCE ([phone])[facility] Glucose [Mass/Vol] 90 mg/dL Normal 82-115 [facility] Comment on above: Performed By: #### L AB103, [id number], LAB17 ####Funeral Home Director: UNA STAUFFERMELANIE ([phone])[facility] ([facility])[address] Potassium [Moles/Vol] 3.5 mmol/L Normal 3.5-5.1 [facility] Comment on above: Result Comment: [facility] potassium values may be up to 0.5 mmol/L lower than serum values. Performed By: #### L AB103, [id number], LAB17 ####Funeral Home Director: UNA ARCE ([phone])[facility])[address] Protein [Mass/Vol] 5.7 g/dL Low 6.4-8.3 [facility] Comment on above: Performed By: #### L AB103, [id number], LAB17 ####Funeral Home Director: UNA ARCE ([phone])[facility] ([facility])[address] Sodium [Moles/Vol] 142 mmol/L Normal 136-145 [facility] Comment on above: Performed By: #### L AB103, [id number], LAB17 ####Funeral Home Director: UNA ARCE ([id number])[facility]ENTERAngel [facility] ([facility])[address] Urea nitrogen [Mass/Vol] 25 mg/dL High 9-23 [facility] Comment on above: Performed By: #### L AB103, [id number], LAB17 ####Funeral Home Director: UNA ARCE ([id number])[facility]ENTERAngel [facility] ([facility])[address] [place] [address] CULTURE ANAEROBICon 04-09-20 CULTURE ANAEROBIC Normal [facility] Comment on above: Performed By: #### L AB233 ####Funeral Home Director: ANAHY AVILA ([phone])[facility])[address] [place] [address] CULTURE ANAEROBIC Normal [facility] Comment on above: Performed By: #### L AB233 ####Funeral Home Director: ANAHY AVILA ([phone])[address] CULTURE, AEROBIC BACTERIA WI TH GRAM STAINon 04-09-2025 CULTURE, AEROBIC BACTERIA WITH GRAM STAIN Normal [facility] Comment on above: Performed By: #### L AB897 ####Funeral Home Director: ANAHY AVILA ([phone])[facility])[address] [place] [address] CULTURE, AEROBIC BACTERIA WITH GRAM STAIN Normal [facility] Comment on above: Performed By: #### L AB897 ####Funeral Home Director: ANAHY AVILA ([phone])[facility] ([facility])[address] [place] [address] Comprehensive metabolic 1998 panelon 04-09-2025 Albumin [Mass/Vol] 2.2 g/dL Low 3.4 - 4.8 g/dL [facility] ALP [Catalytic activity/Vol] 56 U/L 40 - 150 U/L [facility] ALT [Catalytic activity/Vol] U/L NINF - 40 U/L [facility] Anion gap [Moles/Vol] 10 mmol/L 3 - 13 mmol/L [facility] AST [Catalytic activity/Vol] 18 U[facility]/L [facility] Bilirubin [Mass/Vol] 0.7 mg/dL NINF - 1.2 mg/dL [facility] Calcium [Mass/Vol] 8.1 mg/dL Low 8.8 - 10. 0 mg/dL [facility] Chloride [Moles/Vol] 98 mmol/L 98 - 10 7 mmol/L [facility] CO2 [Moles/Vol] 34 mmol/L High 23 - 31 mmol/L [facility] Creatinine [Mass/Vol] 1.53 mg/dL High 0.72 - 1.25 mg/dL [facility] GFR/1.73 sq M.predicted (S/P/Bld) [Vol rate/Area] 43.2 mL/min Low - PINF [facility] Glucose [Mass/Vol] 90 mg/dL 82 - 115 mg/dL [facility] Interpretation and review of laboratory results Abnormal [facility] Potassium [Moles/Vol] 3.5 mmol/L 3.5 - 5.1 mmol/L [facility] Protein [Mass/Vol] 5.7 g/dL Low 6.4 - 8.3 g/dL [facility] Sodium [Moles/Vol] 142 mmol/L 136 - 145 mmol/L [facility] Urea nitrogen [Mass/Vol] 25 mg/dL High 9 - 23 mg/d L [facility] Consulton 04-09-2025 Consult Normal [facility] GLUCOSE, BODY FLUIDon 2024 GLUCOSE, BODY FLUID 132 mg/dL Normal [facility] Comment on above: Performed By: #### L AB110, [id number], [id number], RTE291 ####Funeral Home Director: ANAHY AVILA ([id number])[facility] ([facility] GLUCOSE, BODY FLUID 92 mg/dL Normal [facility] Comment on above: Performed By: #### L AB188, [id number], [id number], [id number] ####Funeral Home Director: ANAHY AVILA ([phone])[facility])[address] [place] [address] [place] LACTATE DEHYDROGENASEon 08-0 LDH [Catalytic activity/Vol] 181 U/L Normal 125-220 [facility] Comment on above: Performed By: #### L AB118, LAB96 ####Funeral Home Director: UNA ARCE ([phone])[facility] (SB[facility])[address] [place] [address] [place] LACTATE DEHYDROGENASE, BODY FLUIDon 04-09-2025 LACTATE DEHYDROGENASE, BODY FLUID BY LAC->PYR 95 U/L Normal [facility] Comment on above: Performed By: #### L AB110, MII566, AYK068, [id number] ####Funeral Home Director: ANAHY AVILA ([phone])[facility] [place] [address] LACTATE DEHYDROGENASE, BODY FLUID BY LAC->PYR 95 U/L Normal [facility] Comment on above: Performed By: #### L AB188, KYB366, GLV134, [id number] ####Funeral Home Director: ANAHY AVILA ([phone])[facility] ([facility])[address] [place] [address] LDH Lactate to pyruvate reac tion [Catalytic activity/Vol]on 04-09-2025 Interpretation and review of laboratory results Normal [facility] 04-09-2025 Fluid Nom (Body fld) Pleural Fluid [facility] Fluid Nom (Body fld) Pleural Fluid S [facility] Fluid Nom (Body fld) Pleural Fluid S [facility] Fluid Nom (Body fld) Pleural Fluid S [facility] Fluid Nom (Body fld) Pleural Fluid S [facility] Fluid Nom (Body fld) Pleural Fluid S [facility] Fluid Nom (Body fld) Pleural Fluid S [facility] LaboratoryOrdered By: Anne cadena on 04-09-2025 Fluid Nom (Body fld) Pleural Fluid S [facility] LaboratoryOrdered By: Rian Spann on 04-09-2025 Fluid Nom (Body fld) Pleural Fluid S [facility] - Chemistry and C hemistry - challengeon 04-09-2025 LDH (Body fld) [Catalytic activity/Vol] 95 U/L [facility] Glucose (Body fld) [Mass/Vol] 132 mg/dL [facility] Protein (Body fld) [Mass/Vol] 2.3 g/dL [facility] pH (Body fld) 7.747 [facility]pH[facility] (Body fld) [Mass/Vol] 2.5 g/dL [facility] Glucose (Body fld) [Mass/Vol] 92 mg/dL [facility] LDH Lactate to pyruvate reaction [Catalytic activity/Vol] 181 U/L 125 - 220 U/L [facility] Protein [Mass/Vol] 5.9 g/dL Low 6.4 - 8.3 g/dL [facility] Magnesium [Mass/Vol] 1.7 mg/dL 1.6 - 2 .6 mg/dL [facility] Laboratory - Chemistry and C hemistry - challengeOrdered By: Anne Miles on 04-09-2025 LDH (Body fld) [Catalytic activity/Vol] 95 U/L [facility] Laboratory - Hematology and Cell countson 04-09-2025 Cells Counted Total (Body fld) [#] 100 [facility] Lymphocytes/100 WBC (Bld) 51 % [facility] Macrophages/100 WBC Manual cnt (Body fld) 36 % [facility] Neutrophils/100 WBC (Body fld) 13 % [facility] RBC Auto (Body fld) [#/Vol] High [facility] WBC (Body fld) [#/Vol] 0.341 10*3/uL High NINF [facility] Cells Counted Total (Body fld) [#] 100 [facility] Lymphocytes/100 WBC (Bld) 31 % [facility] Macrophages/100 WBC Manual cnt (Body fld) 37 % [facility] Mesothelial cells/100 WBC Manual cnt (Body fld) 2 % [facility] Neutrophils/100 WBC (Body fld) 30 % [facility] Anisocytosis Ql (Bld) Moderate Abnormal (none) [facility] Eosinophils (Bld) [#/Vol] 0.6 10*3/uL High 0.0 - 0.5 10*3/uL [facility] Eosinophils/100 WBC (Bld) 5 % 0 - 6 % [facility] Hypochromia Ql (Bld) Moderate Abnormal (none) [facility] Lymphocytes (Bld) [#/Vol] 0.8 10*3/uL Low 1.0 - 4.3 10*3/uL [facility] Lymphocytes/100 WBC (Bld) 7 % Low 15 - 45 % [facility] Monocytes (Bld) [#/Vol] 2 10*3/uL High 0.0 - 0.9 10*3/uL [facility] Monocytes/100 WBC (Bld) 18 % High 5 - 13 % [facility] Neutrophils (Bld) [#/Vol] 8 10*3/uL High 1.8 - 7.5 10*3/uL [facility] Poikilocytosis LM Ql (Bld) Slight Abnormal (none) [facility] Polychromasia LM Ql (Bld) Slight Abnormal (none) [facility] RBC morphology finding Nom (Bld) abnormal [facility] Segmented neutrophils/100 WBC (Bld) 71 % 38 - 82 % [facility] Stomatocytes LM Ql (Bld) Moderate Abnormal (none) [facility] Laboratory - Hematology and Cell countsOrdered By: Kyara Valles on 04-09-2025 RBC Auto (Body fld) [#/Vol] High [facility] WBC (Body fld) [#/Vol] 0.112 10*3/uL High [facility] MAGNESIUMon 04-09-2025 Magnesium [Mass/Vol] 1.7 mg/dL Normal 1.6-2.6 [facility] Comment on above: Result Comment: ORDMeghna R COMMENTS:Higher values can be expected in females during menses. Performed By: #### L AB103, [id number], LAB17 ####Funeral Home Director: UNA ARCE ([phone])[facility] ([facility])[address] [place] [address] MANUAL DIFFERENTIAL (CELLAVI BANDAR)on 04-09-2025 ANISOCYTOSIS PRESENCE IN BLOOD BY LIGHT MICROSCOPY Moderate Abnormal (none) [facility] Comment on above: Performed By: #### L [id number], [id number] ####Funeral Home Director: UNA ARCE ([id number])[facility] ([facility])[address] [place] [address] [place] BAND NEUTROPHILS TOTAL PER COUNTED LEUKOCYTES BY MANUAL COUNT Normal [facility] Comment on above: Performed By: #### L [id number], [id number] ####Funeral Home Director: UNA ARCE ([id number])[facility] ([facility])[address] [place] [address] [place] BASOPHILS TOTAL PER COUNTED LEUKOCYTES BY MANUAL COUNT Normal [facility] Comment on above: Performed By: #### L [id number], [id number] ####Funeral Home Director: UNA ARCE ([id number])[facility] [place] ([facility])[address] [place] [address] [place] BLASTS TOTAL PER COUNTED LEUKOCYTES BY MANUAL COUNT Normal [facility] Comment on above: Performed By: #### L [id number], [id number] ####Funeral Home Director: UNA ARCE ([phone])[facility] [place] ([facility])[address] [place] [address] [place] EOSINOPHILS (10*3/UL) IN BLOOD-CELLAVISION 0.6 10*3/uL High 0.0-0.5 [facility] Comment on above: Performed By: #### L [id number], [id number] ####Funeral Home Director: UNA ARCE ([id number])[facility] ([facility])[address] [place] [address] [place] EOSINOPHILS TOTAL PER COUNTED LEUKOCYTES BY MANUAL COUNT 5 High 0-1 [facility] Comment on above: Performed By: #### L [id number], [id number] ####Funeral Home Director: UNA ARCE ([phone])[facility] [place] ([facility])[address] [place] [address] [place] EOSINOPHILS/100 LEUKOCYTES IN BLOOD-CELLAVISION 5 % Normal 0-6 [facility] Comment on above: Performed By: #### L [id number], [id number] ####Funeral Home Director: UNA ARCE ([id number])[facility] [place] ([facility])[address] HYPOCHROMIA (PRESENCE) IN BLOOD BY LIGHT MICROSCOPY Moderate Abnormal (none) [facility] Comment on above: Performed By: #### L [id number], [id number] ####Funeral Home Director: UNA ARCE ([id number])[facility] [place] ([facility])[address] [place] [address] [place] LYMPHOCYTES (10*3/UL) IN BLOOD-CELLAVISION 0.8 10*3/uL Low 1.0-4.3 [facility] Comment on above: Performed By: #### L [id number], [id number] ####Funeral Home Director: UNA ARCE ([phone])[facility] [place] ([facility])[address] [place] [address] [place] LYMPHOCYTES TOTAL PER COUNTED LEUKOCYTES BY MANUAL COUNT 7 Normal [facility] Comment on above: Performed By: #### L [id number], [id number] ####Funeral Home Director: UNA ARCE ([phone])[facility] [place] ([facility])[address] [place] [address] [place] LYMPHOCYTES/100 LEUKOCYTES IN BLOOD-CELLAVISION 7 % Low 15-45 [facility] Comment on above: Performed By: #### L [id number], [id number] ####Funeral Home Director: UNA ARCE ([id number])[facility] [place] ([facility])[address] [place] [address] [place] METAMYELOCYTES TOTAL PER COUNTED LEUKOCYTES BY MANUAL COUNT Normal [facility] Comment on above: Performed By: #### L [id number], [id number] ####Funeral Home Director: UNA ARCE ([id number])[facility] [place] ([facility])[address] [place] [address] [place] MONOCYTES (10*3/UL) IN BLOOD-CELLAVISION 2.0 10*3/uL High 0.0-0.9 [facility] Comment on above: Performed By: #### L [id number], [id number] ####Funeral Home Director: UNA MOHRCER ([id number])[facility] ([facility])[address] [place] [address] [place] MONOCYTES TOTAL PER COUNTED LEUKOCYTES BY MANUAL COUNT 19 Normal [facility] Comment on above: Performed By: #### L [id number], [id number] ####Funeral Home Director: UNA STAUFFERMELANIE ([phone])[facility] [place] ([facility])[address] [place] [address] [place] MONOCYTES/100 LEUKOCYTES IN BLOOD-[place]UC[place] 18 % High 5-13 [facility] Comment on above: Performed By: #### L [id number], [id number] ####Funeral Home Director: UNA STAUFFERMELANIE ([phone])[facility] [place] ([facility])[address] MYELOCYTES COUNTED BY MANUAL COUNT [facility] Comment on above: Performed By: #### L [id number], [id number] ####Funeral Home Director: UAN ARCE ([phone])[facility] [place] ([facility])[address] NEUTROPHILS TOTAL PER COUNTED LEUKOCYTES BY MANUAL COUNT 77 [facility] Comment on above: Performed By: #### L [id number], [id number] ####Funeral Home Director: UNA ARCE ([phone])[facility] [place] ([facility])[address] [place] [address] [place] POIKILOCYTOSIS (PRESENCE) IN BLOOD BY LIGHT MICROSCOPY Slight Abnormal (none) [facility] Comment on above: Performed By: #### L [id number], [id number] ####Funeral Home Director: UNA STAUFFERMELANIE ([phone])[facility] [place] (SBHLAB)[address] [place] [address] [place] POLYCHROMASIA IN BLOOD BY LIGHT MICROSCOPY Slight Abnormal (none) [facility] Comment on above: Performed By: #### L [id number], [id number] ####Funeral Home Director: UNA ARCE ([id number])[facility] [place] (SBHLAB)[address] [place] [address] [place] PROMYELOCYTES TOTAL PER COUNTED LEUKOCYTES BY MANUAL COUNT Normal [facility] Comment on above: Performed By: #### L [id number], [id number] ####Funeral Home Director: UNA ARCE ([id number])[facility] [place] (SBHL[facility])[address] [place] [address] [place] RBC MORPHOLOGY IN BLOOD abnormal Normal S [facility] Comment on above: Performed By: #### L [id number], [id number] ####Funeral Home Director: UNA ARCE ([phone])[facility] [place] (SB[facility])[address] [place] [address] [place] SEGMENTED NEUTROPHILS (10*3/UL) IN BLOOD-CELLAVISION 8.0 10*3/uL High 1.8-7.5 [facility] Comment on above: Performed By: #### L [id number], [id number] ####Funeral Home Director: UNA ARCE ([id number])[facility] [place] (SB[facility])[address] [place] [address] [place] SEGMENTED NEUTROPHILS/100 LEUKOCYTES-CE 71 % Normal 38-82 [facility] Comment on above: Performed By: #### L [id number], [id number] ####Funeral Home Director: UNA ARCE ([phone])[facility] [place] (SB[facility])[address] [place] [address] [place] STOMATOCYTES IN BLOOD BY LIGHT MICROSCOPY Moderate Abnormal (none) [facility] Comment on above: Performed By: #### L [id number], [id number] ####Funeral Home Director: UNA ARCE ([phone])[facility] (SBHLAB)[address] [place] [address] [place] UNCLASSIFIED CELLS TOTAL PER COUNTED LEUKOCYTES BY MANUAL COUNT Normal [facility] Comment on above: Performed By: #### L [id number], [id number] ####Funeral Home Director: UNA YAZMIN ([id number])[facility] (SBHLAB)[address] VARIANT LYMPHOCYTES TOTAL PER COUNTED LEUKOCYTES BY MANUAL COUNT Normal [facility] Comment on above: Performed By: #### L [id number], [id number] ####Funeral Home Director: UNA ARCE ([id number])[facility] (SBHLAB)[address] Magnesium [Mass/Vol]on 04-09 [facility] No Panel Informationon 04-09 [facility] Interpretation and review of laboratory results Abnormal [facility] Interpretation and review of laboratory results Abnormal [facility] Interpretation and review of laboratory results Normal [facility] Eosinophils Manual 5 High 0 - 1 [facility] Lymphocytes Manual 7 [facility] Monocytes Manual 19 [facility] Neutrophils Manual 77 [facility] No Panel InformationOrdered By: Anne Miles on 04-09-2025 [facility] No Panel InformationOrdered By: Kyara Valles on 04-09-2025 Interpretation and review of laboratory results Abnormal [facility] No Panel InformationOrdered By: Jg Sarabia on 04-09-2025 Interpretation and review of laboratory results Abnormal [facility] Nursing Noteon 04-09-2025 Nursing Note R thoracentesis complete pt tolerated well with minimal discomfort Normal [facility] Nursing Note L thoracentesis complete per Dr Torres. Pt tolerated well with minimal discomfort Normal [facility] PH, BODY FLUIDon 04-09-2025 pH (Body fld) 7.747 [pH] Normal [facility] Comment on above: Performed By: #### L AB110, PLB805, OLX738, [id number] ####Funeral Home Director: ANAHY AVILA ([id number])[facility] (SACLAB)[address] TYPE OF BODY FLUID Pleural Fluid Normal [facility] Comment on above: Result Comment: YARELI R COMMENTS:This test was developed and its performance characteristics determined by [employer]. It has not been cleared or approved by the [place] Food and Drug Administration. This test was performed in a CLIA certified laboratory and is intended for clinical purposes. Performed By: #### L AB110, [id number], [id number], [id number] ####Funeral Home Director: ANAHY AVILA ([phone])[facility] (SACLAB)[address] [place] [address] Result Comment: AILYNE R COMMENTS:This test was developed and its performance characteristics determined by [facility]. It has not been cleared or approved [...] developed and its performance characteristics determined by [facility]. It has not been cleared or approved by the US Food and Drug Administration. This test was performed in a CLIA certified laboratory and is intended for clinical purposes.Pleural anaoz-oh-sexfv protein ratio of >0.5 is one of Light???s criteria for an exudate. Heart failure associated misclassifications (by Light???s criteria) may be differentiated as transudative effusions by subsequently evaluating a sbinf-wl-umalmkd albumin gradient (>1.2 g/dL) and/or a pphvx-ys-aloqm protein gradient (>3.1 g/dL). Result Comment: YARELI R COMMENTS:This test was developed and its performance characteristics determined by [facility]. It has not been cleared or approved by the US Food and Drug Administration. This test was performed in a CLIA certified laboratory and is intended for clinical purposes.Exudates are defined as meeting one of the following criteria: (a) Pleural oglvt-qb-xbsdl protein ratio of >0.5, (b) pleural ccuqh-bm-ehgdh LDH ratio of >0.6, or (c)a pleural fluid LDH activity that is >2/3 the upper limit of a normal serum LDH activity (Light???s criteria). Performed By: #### L AB209, [id number] ####Funeral Home Director: UNA ARCE ([id number])[facility] [place] (SBHLAB)[address] [place] [address] pH (Body fld) 7.688 [pH] Normal [facility] Comment on above: Performed By: #### L AB188, QLA860, JXC539, DGE863 ####Funeral Home Director: ANAHY AVILA ([phone])[facility] ([facility] [place] [address] [place] PHOSPHORUSon 04-09-2025 Phosphate [Mass/Vol] 3.5 mg/dL Normal 2.3-4.7 [facility] Comment on above: Performed By: #### L AB103, RBQ359, LAB17 ####Funeral Home Director: UNA ARCE ([phone])[facility] (HLAB)[address] [place] [address] [place] PROTEIN BODY FLUIDon 025 PROTEIN, BODY FLUID 2.3 g/dL Normal [facility] Comment on above: Performed By: #### L AB110, XVE236, [id number], SSA386 ####Funeral Home Director: ANAHY AVILA ([id number])[facility] ([facility])[address] [place] [address] [place] PROTEIN, BODY FLUID 2.5 g/dL Normal [facility] Comment on above: Performed By: #### L AB188, [id number], JAD401, FGE490 ####Funeral Home Director: ANAHY AVILA ([phone])[facility] ([facility])[address] [place] [address] [place] Phosphate [Moles/Vol]on Phosphate [Mass/Vol] 3.5 mg/dL 2.3 - 4 .7 mg/dL [facility] Progress Noteon 04-09-2025 Progress Note Normal [facility] Progress Note Normal [facility] Progress Note Normal [facility] Progress Note Normal [facility] TOTAL PROTEINon 04-09-2025 Protein [Mass/Vol] 5.9 g/dL Low 6.4-8.3 [facility] Comment on above: Result Comment: Seru m protein values are higher than plasma values. Samples from recumbent persons are lower by up to 0.5 g/dL as compared to ambulatory persons. After 60 years values are lower by up to 0.2 g/dL. Performed By: #### L AB118, LAB96 ####Funeral Home Director: UNA ARCE ([phone])[facility] [place] ([facility])[address] [place] [address] XR CHEST 1 VIEWon 04-09-2025 XR CHEST 1 VIEW Normal [facility] XR Chest Single viewon 04-09 [facility] Radiology Study observation (narrative) [facility] Radiology Study observation (narrative) [facility] Radiology Study observation (narrative) [facility] [place] [facility] XR Chest Single viewOrdered By: Gary Kay on 04-09-2025 [facility] Phone: XR Chest Single viewOrdered By: Sis Collins on 04-09-2025 [facility] Phone: XR Chest Single viewOrdered By: Kev Mattson on 04-09-2025 [facility] Phone: [phone] 04-08-2025 [id number] Attempted to insert garcía. Urojet injected. Unable to visualize meatus. Attempted x1 to insert garcía without success. Normal [facility] [id number] Normal [facility] [id number] 04-08-2025 [id number] Normal [facility] BLOOD GAS ARTERIALon 025 AMOUNT OF OXYGEN .40 Normal [facility] Comment on above: Performed By: #### L AB76 ####Funeral Home Director: UNA ARCE ([id number])[facility] [place] (SBHLAB)[address] Base excess Calc (Bld) [Moles/Vol] 11.2 mmol/L High -3.0-3.0 [facility] Comment on above: Performed By: #### L AB76 ####Funeral Home Director: UNA ARCE ([id number])[facility] [place] (SBHLAB)[address] [place] [address] [place] CO2 [Moles/Vol] 41.2 mmol/L High 22.0-28.0 [facility] Comment on above: Performed By: #### L AB76 ####Funeral Home Director: UNA ARCE ([phone])[facility] [place] (SBHLAB)[address] HCO3 (Bld) [Moles/Vol] 38.9 mmol/L High 21.0-27.0 [facility] Comment on above: Performed By: #### L AB76 ####Funeral Home Director: UNA ARCE ([id number])[facility] [place] (SBHLAB)[address] Hemoglobin (Bld) [Mass/Vol] 8.4 g/dL Low Screen only [facility] Comment on above: Performed By: #### L AB76 ####Funeral Home Director: UNA ARCE ([phone])[facility] [place] (SBHLAB)[address] OXYGEN SATURATION (%) IN ARTERIAL BLOOD 97.0 % Normal 97.0-99.0 [facility] Comment on above: Performed By: #### L AB76 ####Funeral Home Director: UNA ARCE ([phone])[facility] [place] (SBHLAB)[address] [place] [address] [place] PCO2 ARTERIAL 75.1 mm Hg High 35.0-48.0 [facility] Comment on above: Performed By: #### L AB76 ####Funeral Home Director: UNA ARCE ([phone])[facility] [place] (SBHLAB)[address] PH ARTERIAL 7.332 Low 7.350-7.450 [facility] Comment on above: Performed By: #### L AB76 ####Funeral Home Director: UNA ARCE ([id number])[facility]BNEW [facility] (SBHLAB)[address] PO2 ARTERIAL 104.0 mm Hg Normal 83.0-108.0 [facility] Comment on above: Performed By: #### L AB76 ####Funeral Home Director: UNA ARCE ([phone])[facility] (SB[facility])[address] SOURCE OF OXYGEN Non-Invasive Ventilator Normal [facility] Comment on above: Performed By: #### L AB76 ####Funeral Home Director: UNA ARCE ([id number])[facility] (SBHLAB)[address] AMOUNT OF OXYGEN 4 liters Normal [facility] Comment on above: Performed By: #### L AB76 ####Funeral Home Director: UNA ARCE ([phone])[facility] (HL[facility])[address] [place] [address] Base excess Calc (Bld) [Moles/Vol] 9.9 mmol/L High -3.0-3.0 [facility] Comment on above: Performed By: #### L AB76 ####Funeral Home Director: UAN ARCE ([phone])[facility]BNEW [facility] (SBHLAB)[address] [place] [address] [place] CO2 [Moles/Vol] 40.6 mmol/L High 22.0-28.0 [facility] Comment on above: Performed By: #### L AB76 ####Funeral Home Director: UNA ARCE ([id number])[facility] (SBHLAB)[address] HCO3 (Bld) [Moles/Vol] 38.2 mmol/L High 21.0-27.0 [facility] Comment on above: Performed By: #### L AB76 ####Funeral Home Director: UNA ARCE ([id number])[facility] (SBHLAB)[address] Hemoglobin (Bld) [Mass/Vol] 8.6 g/dL Low Screen only [facility] Comment on above: Performed By: #### L AB76 ####Funeral Home Director: UNA ARCE ([id number])[facility]Angel [facility] (SBHLAB)[address] OXYGEN SATURATION (%) IN ARTERIAL BLOOD 96.1 % Low 97.0-99.0 [facility] Comment on above: Performed By: #### L AB76 ####Funeral Home Director: UNA ARCE ([id number])[facility]Angel [place] (SBHLAB)[address] PCO2 ARTERIAL 80.1 mm Hg Critically high 35.0-48.0 [facility] Comment on above: Performed By: #### L AB76 ####Funeral Home Director: UNA ARCE ([id number])[facility] [place] [facility] PH ARTERIAL 7.296 Low 7.350-7.450 [facility] Comment on above: Performed By: #### L AB76 ####Funeral Home Director: UNA ARCE ([id number])[facility] (HLAB)[address] PO2 ARTERIAL 92.0 mm Hg Normal 83.0-108.0 [facility] Comment on above: Performed By: #### L AB76 ####Funeral Home Director: UNA ARCE ([id number])[facility] SOURCE OF OXYGEN Nasal Cannula (LPM) Normal [facility] Comment on above: Performed By: #### L AB76 ####Funeral Home Director: UNA ARCE ([id number])[facility] [place] (SBHLAB)[address] CBC W Auto Differential pane l (Bld)on 04-08-2025 Erythrocyte distribution width (RBC) [Ratio] 21.1 % High 11.5 - 15.0 % [facility] Hematocrit (Bld) [Volume fraction] 25.9 % Low 40.0 - 52.0 % [facility] Hemoglobin (Bld) [Mass/Vol] 7.2 g/dL Low 13.0 - 18.0 g/dL [facility] MCH (RBC) [Entitic mass] 22.3 pg Low 26. 0 - 34.0 pg [facility] MCHC (RBC) [Mass/Vol] 27.8 % Low 30.5 - 36.0 % [facility] MCV (RBC) [Entitic vol] 80.2 fL 77.0 - 99.0 fL [facility] [place] Platelet mean volume (Bld) [Entitic vol] 9.9 fL 9.0 - 12.7 fL [facility] Platelets (Bld) [#/Vol] 314 10*3/uL 140 - 440 10*3/uL [facility] RBC (Bld) [#/Vol] 3.23 10*6/uL Low 4.40 - 5.9 0 10*6/uL [facility] WBC (Bld) [#/Vol] 13 10*3/uL High 3.6 - 10.7 10*3/uL [facility] CBC WITH AUTO DIFFERENTIALon 04-08-2025 Erythrocyte distribution width (RBC) [Ratio] 21.1 % High 11.5-15.0 [facility] Comment on above: Performed By: #### L [id number], [id number] ####Funeral Home Director: UNA ARCE ([id number])[facility] (SBHLAB)[address] [place] [address] Hematocrit (Bld) [Volume fraction] 25.9 % Low 40.0-52.0 [facility] Comment on above: Performed By: #### L [id number], [id number] ####Funeral Home Director: UNA ARCE ([id number])[facility] [place] (SBHLAB)[address] Hemoglobin (Bld) [Mass/Vol] 7.2 g/dL Low 13.0-18.0 [facility] Comment on above: Performed By: #### L [id number], [id number] ####Funeral Home Director: UNA ARCE ([id number])[facility] (SBHLAB)[address] MCH (RBC) [Entitic mass] 22.3 pg Low 26.0-34.0 [facility] Comment on above: Performed By: #### L [id number], [id number] ####Funeral Home Director: UNA ARCE ([id number])[facility] (SBHLAB)[address] MCHC 27.8 % Low 30.5-36.0 [facility] Comment on above: Performed By: #### L [id number], [id number] ####Funeral Home Director: UNA ARCE ([phone])[facility]ENTERAngel [facility]BNEW [facility] (SBHLAB)[address] MCV (RBC) [Entitic vol] 80.2 fL Normal 77.0-99.0 S [facility] Comment on above: Performed By: #### L [id number], [id number] ####Funeral Home Director: UNA ARCE ([id number])[facility] (SBHLAB)[address] Platelet mean volume (Bld) [Entitic vol] 9.9 fL Normal 9.0-12.7 [facility] Comment on above: Performed By: #### L [id number], [id number] ####Funeral Home Director: UNA ARCE ([id number])[facility] (SBHLAB)[address] Platelets (Bld) [#/Vol] 314 10*3/uL Normal 140-440 [facility] Comment on above: Performed By: #### L [id number], [id number] ####Funeral Home Director: UNA ARCE ([id number])[facility]Angel [place]ASHIRN (SBHLAB)[address] RBC (Bld) [#/Vol] 3.23 10*6/uL Low 4.40-5.90 [facility] Comment on above: Performed By: #### L [id number], [id number] ####Funeral Home Director: UNA ARCE ([id number])[facility]Angel [facility]ZNEW [facility] (SBHLAB)[address] WBC (Bld) [#/Vol] 13.0 10*3/uL High 3.6-10.7 [facility] Comment on above: Performed By: #### L [id number], [id number] ####Funeral Home Director: UNA ARCE ([id number])[facility] (SBHLAB)[address] [place] [address] COMPREHENSIVE METABOLIC PANE Anant 04-08-2025 Albumin [Mass/Vol] 2.4 g/dL Low 3.4-4.8 [facility] Comment on above: Performed By: #### L AB103, LAB17 ####Funeral Home Director: UNA ARCE ([id number])[facility] (SBHLAB)[address] ALP [Catalytic activity/Vol] 57 U/L Normal 40-150 [facility] Comment on above: Performed By: #### L AB103, LAB17 ####Funeral Home Director: UNA ARCE ([id number])[facility] (SBHLAB)[address] ALT [Catalytic activity/Vol] U/L Normal <40 [facility] Comment on above: Performed By: #### L AB103, LAB17 ####Funeral Home Director: UNA ARCE ([id number])[facility] (SBHLAB)[address] Anion gap [Moles/Vol] 10 mmol/L Normal 3-13 [facility] Comment on above: Performed By: #### L AB103, LAB17 ####Funeral Home Director: UNA STAUFFERMELANIE ([id number])[facility] [place] (SB[facility])[address] AST [Catalytic activity/Vol] 21 U/L Normal <34 [facility] Comment on above: Performed By: #### L AB103, LAB17 ####Funeral Home Director: UNA MOHRCER ([id number])[facility] [place] (SBHLAB)[address] Bilirubin [Mass/Vol] 0.6 mg/dL Normal <1.2 [facility] Comment on above: Performed By: #### L AB103, LAB17 ####Funeral Home Director: UNA STAUFFERMELANIE ([id number])[facility] (SBHLAB)[address] Calcium [Mass/Vol] 7.9 mg/dL Low 8.8-10.0 [facility] Comment on above: Performed By: #### L AB103, LAB17 ####Funeral Home Director: UNA BERMUDEZPEDRO ([id number])[facility] [place] (SBHLAB)[address] [place] [address] [place] Chloride [Moles/Vol] 99 mmol/L Normal 98-107 [facility] Comment on above: Performed By: #### L AB103, LAB17 ####Funeral Home Director: UNA ARCE ([id number])[facility] [place] (SBHLAB)[address] [place] [address] [place] CO2 [Moles/Vol] 33 mmol/L High 23-31 [facility] Comment on above: Performed By: #### L AB103, LAB17 ####Funeral Home Director: UNA ARCE ([id number])[facility] (SBHLAB)[address] Creatinine [Mass/Vol] 1.78 mg/dL High 0.72-1.25 [facility] Comment on above: Performed By: #### L AB103, LAB17 ####Funeral Home Director: UNA ARCE ([id number])[facility] [place] (SBHLAB)[address] [place] [address] [place] GLOMERULAR FILTRATION RATE ML/MIN/1.73 SQ M.PREDICTED 36.0 mL/min/1.73m*2 Low >60.0 [facility] Comment on above: Result Comment: Calc ulation based on the Chronic Kidney Disease Epidemiology Collaboration (CKD-EPI) equation refit without adjustment for race Performed By: #### L AB103, LAB17 ####Funeral Home Director: UNA ARCE ([id number])[facility] (SBHLAB)[address] Glucose [Mass/Vol] 99 mg/dL Normal 82-115 [facility] Comment on above: Performed By: #### L AB103, LAB17 ####Funeral Home Director: UNA ARCE ([id number])[facility] (SBHLAB)[address] Potassium [Moles/Vol] 3.4 mmol/L Low 3.5-5.1 [facility] Comment on above: Result Comment: [facility] potassium values may be up to 0.5 mmol/L lower than serum values. Performed By: #### L AB103, LAB17 ####Funeral Home Director: UNA ARCE ([id number])[facility] [place] (SBHLAB)[address] [place] [address] [place] Protein [Mass/Vol] 5.8 g/dL Low 6.4-8.3 [facility] Comment on above: Performed By: #### L AB103, LAB17 ####Funeral Home Director: UNA ARCE ([id number])[facility] [place] (SBHLAB)[address] [place] [address] [place] Sodium [Moles/Vol] 142 mmol/L Normal 136-145 [facility] Comment on above: Performed By: #### L AB103, LAB17 ####Funeral Home Director: UNA ARCE ([id number])[facility] [place] (SB[facility])[address] Urea nitrogen [Mass/Vol] 26 mg/dL High 9-23 [facility] Comment on above: Performed By: #### L AB103, LAB17 ####Funeral Home Director: UNA ARCE ([id number])[facility] (SB[facility])[address] Comprehensive metabolic 1998 panelon 04-08-2025 Albumin [Mass/Vol] 2.4 g/dL Low 3.4 - 4.8 g/dL [facility] ALP [Catalytic activity/Vol] 57 U/L 40 - 150 U/L [facility] ALT [Catalytic activity/Vol] U/L NINF - 40 U/L [facility] Anion gap [Moles/Vol] 10 mmol/L 3 - 13 mmol/L [facility] AST [Catalytic activity/Vol] 21 U/L NINF - 34 U/L [facility] Bilirubin [Mass/Vol] 0.6 mg/dL NINF - 1.2 mg/dL [facility] Calcium [Mass/Vol] 7.9 mg/dL Low 8.8 - 10. 0 mg/dL [facility] Chloride [Moles/Vol] 99 mmol/L 98 - 10 7 mmol/L [facility] CO2 [Moles/Vol] 33 mmol/L High 23 - 31 mmol/L [facility] Creatinine [Mass/Vol] 1.78 mg/dL High 0.72 - 1.25 mg/dL [facility] GFR/1.73 sq M.predicted (S/P/Bld) [Vol rate/Area] 36 mL/min Low - PINF [facility] Glucose [Mass/Vol] 99 mg/dL 82 - 115 mg/dL [facility] Interpretation and review of laboratory results Abnormal [facility] Potassium [Moles/Vol] 3.4 mmol/L Low 3.5 - 5.1 mmol/L [facility] Protein [Mass/Vol] 5.8 g/dL Low 6.4 - 8.3 g/dL [facility] Sodium [Moles/Vol] 142 mmol/L 136 - 145 mmol/L [facility] Urea nitrogen [Mass/Vol] 26 mg/dL High 9 - 23 mg/d L [facility] Consulton 04-08-2025 Consult Normal [facility] Laboratory - Chemistry and C hemistry - challengeOrdered By: Renay Chan on 04-08-2025 Base excess Calc (Bld) [Moles/Vol] 11.2 mmol/L High -3.0 - 3.0 mmol/L [facility] CO2 (Bld) [Partial pressure] 75.1 mm[Hg] High [facility] CO2 [Moles/Vol] 41.2 mmol/L High 22.0 - 28.0 mmol/L [facility] HCO3 (Bld) [Moles/Vol] 38.9 mmol/L High 21.0 - 27.0 mmol/L [facility] Oxygen (Bld) [Partial pressure] 104 mm[Hg] [facility] pH (Bld) 7.332 [pH] Low 7.350 - 7.450 [facility] Laboratory - Chemistry and C hemistry - challengeOrdered By: Sallie Powell on 04-08-2025 Base excess Calc (Bld) [Moles/Vol] 9.9 mmol/L High -3.0 - 3.0 mmol/L [facility] CO2 (Bld) [Partial pressure] 80.1 mm[Hg] Critically high [facility] CO2 [Moles/Vol] 40.6 mmol/L High 22.0 - 28.0 mmol/L [facility] HCO3 (Bld) [Moles/Vol] 38.2 mmol/L High 21.0 - 27.0 mmol/L [facility] Oxygen (Bld) [Partial pressure] 92 mm[Hg] [facility] pH (Bld) 7.296 [pH] Low 7.350 - 7.450 [facility] Laboratory - Chemistry and C hemistry - challengeon 04-08-2025 Glucose [Mass/Vol] 100 mg/dL 70 - 100 mg/dL [facility] Magnesium [Mass/Vol] 1.6 mg/dL 1.6 - 2 .6 mg/dL [facility] Laboratory - Hematology and Cell countsOrdered By: Renay Chan on 04-08-2025 Hemoglobin (Bld) [Mass/Vol] 8.4 g/dL Low 13.5 - 17.5 g/dl [facility] Laboratory - Hematology and Cell countsOrdered By: Sallie Powell on 04-08-2025 Hemoglobin (Bld) [Mass/Vol] 8.6 g/dL Low 13.5 - 17.5 g/dl [facility] Laboratory - Hematology and Cell countson 04-08-2025 Anisocytosis Ql (Bld) Moderate Abnormal (none) [facility] Basophils (Bld) [#/Vol] 0.1 10*3/uL 0.0 - 0.2 10*3/uL [facility] Basophils/100 WBC (Bld) 1 % 0 - 2 % [facility] Hypochromia Ql (Bld) Moderate Abnormal (none) [facility] Lymphocytes (Bld) [#/Vol] 1.8 10*3/uL 1.0 - 4.3 10*3/uL [facility] Lymphocytes/100 WBC (Bld) 14 % Low 15 - 45 % [facility] Monocytes (Bld) [#/Vol] 1.6 10*3/uL High 0.0 - 0.9 10*3/uL [facility] Monocytes/100 WBC (Bld) 12 % 5 - 13 % [facility] Neutrophils (Bld) [#/Vol] 9.6 10*3/uL High 1.8 - 7.5 10*3/uL [facility] Ovalocytes LM Ql (Bld) Slight Abnormal (none) [facility] Poikilocytosis LM Ql (Bld) Moderate Abnormal (none) [facility] RBC morphology finding Nom (Bld) abnormal [facility] Segmented neutrophils/100 WBC (Bld) 74 % 38 - 82 % [facility] Stomatocytes LM Ql (Bld) Moderate Abnormal (none) [facility] MAGNESIUMon 04-08-2025 Magnesium [Mass/Vol] 1.6 mg/dL Normal 1.6-2.6 [facility] Comment on above: Result Comment: YARELI R COMMENTS:Higher values can be expected in females during menses. Performed By: #### L [id number], [id number] ####Funeral Home Director: UNA ARCE ([phone])[facility] ([facility])[address] [place] [address] MANUAL DIFFERENTIAL (CELLAVI BANDAR)on 04-08-2025 ANISOCYTOSIS PRESENCE IN BLOOD BY LIGHT MICROSCOPY Moderate Abnormal (none) [facility] Comment on above: Performed By: #### L [id number], [id number] ####Funeral Home Director: UNA STAUFFERMELANIE ([phone])[facility] ([facility])[address] [place] [address] [place] BAND NEUTROPHILS TOTAL PER COUNTED LEUKOCYTES BY MANUAL COUNT [facility] Comment on above: Performed By: #### L [id number], [id number] ####Funeral Home Director: UNA BERMUDEZPEDRO ([phone])[facility] [place] ([facility])[address] [place] [address] [place] BASOPHILS (10*3/UL) IN BLOOD-CELLAVISION 0.1 10*3/uL Normal 0.0-0.2 [facility] Comment on above: Performed By: #### L [id number], [id number] ####Funeral Home Director: UNA STAUFFERMELANIE ([phone])[facility] [place] ([facility])[address] [place] [address] [place] BASOPHILS TOTAL PER COUNTED LEUKOCYTES BY MANUAL COUNT 1 [facility] Comment on above: Performed By: #### L [id number], [id number] ####Funeral Home Director: UNA BERMUDEZPEDRO ([id number])[facility] [place] ([facility])[address] [place] [address] [place] BASOPHILS/100 LEUKOCYTES IN BLOOD-CELLAVISION 1 % Normal 0-2 [facility] Comment on above: Performed By: #### L [id number], [id number] ####Funeral Home Director: UNA ARCE ([phone])[facility] [place] ([facility])[address] [place] [address] [place] BLASTS TOTAL PER COUNTED LEUKOCYTES BY MANUAL COUNT [facility] Comment on above: Performed By: #### L [id number], [id number] ####Funeral Home Director: UNA ARCE ([phone])[facility] [place] ([facility])[address] [place] [address] [place] EOSINOPHILS TOTAL PER COUNTED LEUKOCYTES BY MANUAL COUNT [facility] Comment on above: Performed By: #### L [id number], [id number] ####Funeral Home Director: UNA ARCE ([phone])[facility] ([facility])[address] [place] [address] [place] HYPOCHROMIA (PRESENCE) IN BLOOD BY LIGHT MICROSCOPY Moderate Abnormal (none) [facility] Comment on above: Performed By: #### L [id number], [id number] ####Funeral Home Director: UNA BERMUDEZPEDRO ([id number])[facility] [place] ([facility])[address] [place] [address] [place] LYMPHOCYTES (10*3/UL) IN BLOOD-CELLAVISION 1.8 10*3/uL Normal 1.0-4.3 [facility] Comment on above: Performed By: #### L [id number], [id number] ####Funeral Home Director: UNA STAUFFERMELANIE ([id number])[facility] [place] ([facility])[address] LYMPHOCYTES TOTAL PER COUNTED LEUKOCYTES BY MANUAL COUNT 14 Normal [facility] Comment on above: Performed By: #### L [id number], [id number] ####Funeral Home Director: UNA BERMUDEZPEDRO ([id number])[facility] [place] ([facility])[address] [place] [address] [place] LYMPHOCYTES/100 LEUKOCYTES IN BLOOD-CELLAVISION 14 % Low 15-45 [facility] Comment on above: Performed By: #### L [id number], [id number] ####Funeral Home Director: UNA ARCE ([id number])[facility] [place] ([facility])[address] [place] [address] [place] METAMYELOCYTES TOTAL PER COUNTED LEUKOCYTES BY MANUAL COUNT Normal [facility] Comment on above: Performed By: #### L [id number], [id number] ####Funeral Home Director: UNA STAUFFERMELANIE ([id number])[facility] [place] ([facility])[address] [place] [address] [place] MONOCYTES (10*3/UL) IN BLOOD-CELLAVISION 1.6 10*3/uL High 0.0-0.9 [facility] Comment on above: Performed By: #### L [id number], [id number] ####Funeral Home Director: UNA ARCE ([phone])[facility] ([facility])[address] MONOCYTES TOTAL PER COUNTED LEUKOCYTES BY MANUAL COUNT 12 Normal [facility] Comment on above: Performed By: #### L [id number], [id number] ####Funeral Home Director: UNA MOHRCER ([phone])[facility] ([facility])[address] [place] [address] [place] MONOCYTES/100 LEUKOCYTES IN BLOOD-LUCIANA 12 % Normal -13 [facility] Comment on above: Performed By: #### L [id number], [id number] ####Funeral Home Director: UNA ARCE ([id number])[facility] [place] ([facility])[address] MYELOCYTES COUNTED BY MANUAL COUNT [facility] Comment on above: Performed By: #### L [id number], [id number] ####Funeral Home Director: UNA ARCE ([id number])[facility] [place] ([facility])[address] [place] [address] [place] NEUTROPHILS TOTAL PER COUNTED LEUKOCYTES BY MANUAL COUNT 75 Normal [facility] Comment on above: Performed By: #### L [id number], [id number] ####Funeral Home Director: UNA ARCE ([id number])[facility] [place] ([facility])[address] [place] [address] [place] OVALOCYTES PRESENCE IN BLOOD BY LIGHT MICROSCOPY Slight Abnormal (none) [facility] Comment on above: Performed By: #### L [id number], [id number] ####Funeral Home Director: UNA ARCE ([phone])[facility] [place] ([facility])[address] [place] [address] [place] POIKILOCYTOSIS (PRESENCE) IN BLOOD BY LIGHT MICROSCOPY Moderate Abnormal (none) [facility] Comment on above: Performed By: #### L [id number], [id number] ####Funeral Home Director: UNA ARCE ([id number])[facility] ([facility])[address] [place] [address] [place] PROMYELOCYTES TOTAL PER COUNTED LEUKOCYTES BY MANUAL COUNT Normal [facility] Comment on above: Performed By: #### L [id number], [id number] ####Funeral Home Director: UNA ARCE ([id number])[facility] ([facility])[address] [place] [address] [place] RBC MORPHOLOGY IN BLOOD abnormal Normal S [facility] Comment on above: Performed By: #### L [id number], [id number] ####Funeral Home Director: UNA ARCE ([id number])[facility] [place] ([facility])[address] [place] [address] [place] SEGMENTED NEUTROPHILS (10*3/UL) IN BLOOD-CELLAVISION 9.6 10*3/uL High 1.8-7.5 [facility] Comment on above: Performed By: #### L [id number], [id number] ####Funeral Home Director: UNA ARCE ([id number])[facility] [place] ([facility])[address] [place] [address] [place] SEGMENTED NEUTROPHILS/100 LEUKOCYTES-CE 74 % Normal 38-82 [facility] Comment on above: Performed By: #### L [id number], [id number] ####Funeral Home Director: UNA ARCE ([id number])[facility] [place] ([facility])[address] [place] [address] [place] STOMATOCYTES IN BLOOD BY LIGHT MICROSCOPY Moderate Abnormal (none) [facility] Comment on above: Performed By: #### L [id number], [id number] ####Funeral Home Director: UNA ARCE ([id number])[facility] [place] ([facility])[address] [place] [address] [place] UNCLASSIFIED CELLS TOTAL PER COUNTED LEUKOCYTES BY MANUAL COUNT Normal [facility] Comment on above: Performed By: #### L [id number], [id number] ####Funeral Home Director: UNA ARCE ([phone])[facility] [place] ([facility])[address] VARIANT LYMPHOCYTES TOTAL PER COUNTED LEUKOCYTES BY MANUAL COUNT Normal [facility] Comment on above: Performed By: #### L [id number], [id number] ####Funeral Home Director: UNA ARCE ([id number])[facility] [place] ([facility])[address] Magnesium [Mass/Vol]on 04-08 Interpretation and review of laboratory results Normal [facility] No Panel InformationOrdered By: Renay Chan on 04-08-2025 Amount Of Oxygen 0.40 [facility] alth Interpretation and review of laboratory results Abnormal [facility] Source Of Oxygen Non-Invasive Ventilator [facility] No Panel InformationOrdered By: Sallie Powell on 04-08-2025 Amount Of Oxygen 4 liters [facility] alth Interpretation and review of laboratory results Abnormal [facility] Source Of Oxygen Nasal Cannula (LPM) [facility] No Panel Informationon 04-08 Interpretation and review of laboratory results Normal [facility] Basophils Manual 1 [facility] Interpretation and review of laboratory results Abnormal [facility] Lymphocytes Manual 14 [facility] Monocytes Manual 12 [facility] alth Neutrophils Manual 75 [facility] Progress Noteon 04-08-2025 Progress Note Normal [facility] Progress Note Normal [facility] Progress Note Normal [facility] Progress Note Normal [facility] XR [facility] Single viewon 04-08 [facility] Radiology Study observation (narrative) [facility] XR Chest Single viewOrdered By: Nelson Sow on 04-08-2025 [facility] Work Phone: CBC W Auto Differential pane l (Bld)Ordered By: Sharita Beck on 04-07-2025 Erythrocyte distribution width (RBC) [Ratio] 20.5 % High 11.5 - 15.0 % [facility] Hematocrit (Bld) [Volume fraction] 27.2 % Low 40.0 - 52.0 % [facility] Hemoglobin (Bld) [Mass/Vol] 7.4 g/dL Low 13.0 - 18.0 g/dL [facility] MCH (RBC) [Entitic mass] 21.8 pg Low 26. 0 - 34.0 pg [facility] MCHC (RBC) [Mass/Vol] 27.2 % Low 30.5 - 36.0 % [facility] MCV (RBC) [Entitic vol] 80 fL 77.0 - 99.0 fL [facility] Platelet mean volume (Bld) [Entitic vol] 9.8 fL 9.0 - 12.7 fL [facility] Platelets (Bld) [#/Vol] 346 10*3/uL 140 - 440 10*3/uL [facility] RBC (Bld) [#/Vol] 3.4 10*6/uL Low 4.40 - 5.9 0 10*6/uL [facility] WBC (Bld) [#/Vol] 11.5 10*3/uL High 3.6 - 10.7 10*3/uL [facility] CBC WITH AUTO DIFFERENTIALon 04-07-2025 Erythrocyte distribution width (RBC) [Ratio] 20.5 % High 11.5-15.0 [facility] Comment on above: Performed By: #### L [id number], [id number] ####Funeral Home Director: UNA ARCE ([id number])[facility] ([facility])[address] [place] [address] Hematocrit (Bld) [Volume fraction] 27.2 % Low 40.0-52.0 [facility] Comment on above: Performed By: #### L [id number], [id number] ####Funeral Home Director: UNA ARCE ([id number])[facility] ([facility])[address] Hemoglobin (Bld) [Mass/Vol] 7.4 g/dL Low 13.0-18.0 [facility] Comment on above: Performed By: #### L [id number], [id number] ####Funeral Home Director: UNA ARCE ([id number])[facility] ([facility])[address] MCH (RBC) [Entitic mass] 21.8 pg Low 26.0-34.0 [facility] Comment on above: Performed By: #### L [id number], [id number] ####Funeral Home Director: UNA ARCE ([id number])[facility]IR[facility] ([facility])[address] MCHC 27.2 % Low 30.5-36.0 [facility] Comment on above: Performed By: #### L [id number], [id number] ####Funeral Home Director: UNA ARCE ([id number])[facility] BASHIRMarisol ([facility])[address] MCV (RBC) [Entitic vol] 80.0 fL Normal 77.0-99.0 S [facility] Comment on above: Performed By: #### L [id number], [id number] ####Funeral Home Director: UNA ARCE ([id number])[facility] SANCHEZLUIS ([facility])[address] Platelet mean volume (Bld) [Entitic vol] 9.8 fL Normal 9.0-12.7 [facility] Comment on above: Performed By: #### L [id number], [id number] ####Funeral Home Director: UNA ARCE ([id number])[facility]ENTERAngel SANCHEZNEW MEXICO BEHAVIORAL HEALTH INSTITUTE AT LAS VEGASMarisol ([facility])[address] [place] [address] Platelets (Bld) [#/Vol] 346 10*3/uL Normal 140-440 [facility] Comment on above: Performed By: #### L [id number], [id number] ####Funeral Home Director: UNA ARCE ([id number])[facility] SANCHEZCHRISTINAN ([facility])[address] RBC (Bld) [#/Vol] 3.40 10*6/uL Low 4.40-5.90 [facility] Comment on above: Performed By: #### L [id number], [id number] ####Funeral Home Director: UNA ARCE ([id number])[facility] [place] ([facility])[address] WBC (Bld) [#/Vol] 11.5 10*3/uL High 3.6-10.7 [facility] Comment on above: Performed By: #### L [id number], [id number] ####Funeral Home Director: UNA ARCE ([id number])[facility] [place] ([facility])[address] COMPREHENSIVE METABOLIC PANE Anant 04-07-2025 Albumin [Mass/Vol] 2.4 g/dL Low 3.4-4.8 [facility] Comment on above: Performed By: #### L [id number], LAB17 ####Funeral Home Director: UNA ARCE ([id number])[facility] [place] ([facility])[address] ALP [Catalytic activity/Vol] 57 U/L Normal 40-150 [facility] Comment on above: Performed By: #### L [id number], LAB17 ####Funeral Home Director: UNA ARCE ([id number])[facility] [place] ([facility])[address] ALT [Catalytic activity/Vol] U/L Normal <40 [facility] Comment on above: Performed By: #### L AB103, LAB17 ####Funeral Home Director: UNA ARCE ([phone])[facility]A BARBNEW MEXICO BE[facility] AT [facility]ASN ([facility])[address] Anion gap [Moles/Vol] 14 mmol/L High 3-13 [facility] Comment on above: Performed By: #### L AB103, LAB17 ####Funeral Home Director: UNA ARCE ([id number])[facility] [place] ([facility])[address] AST [Catalytic activity/Vol] 23 U/L Normal <34 [facility] Comment on above: Performed By: #### L AB103, LAB17 ####Funeral Home Director: UNA ARCE ([id number])[facility] ([facility])[address] Bilirubin [Mass/Vol] 0.7 mg/dL Normal <1.2 [facility] Comment on above: Performed By: #### L AB103, LAB17 ####Funeral Home Director: UNA ARCE ([id number])[facility] [place] ([facility])[address] Calcium [Mass/Vol] 7.9 mg/dL Low 8.8-10.0 [facility] Comment on above: Performed By: #### L AB103, LAB17 ####Funeral Home Director: UNA ARCE ([id number])[facility] [place] ([facility])[address] Chloride [Moles/Vol] 98 mmol/L Normal 98-107 [facility] Comment on above: Performed By: #### L AB103, LAB17 ####Funeral Home Director: UNA ARCE ([id number])[facility] [place] ([facility])[address] CO2 [Moles/Vol] 31 mmol/L Normal 23-31 [facility] Comment on above: Performed By: #### L AB103, LAB17 ####Funeral Home Director: UNA ARCE ([id number])[facility] [place] ([facility])[address] Creatinine [Mass/Vol] 1.63 mg/dL High 0.72-1.25 [facility] Comment on above: Performed By: #### L AB103, LAB17 ####Funeral Home Director: UNA ARCE ([phone])[facility] [place] ([facility])[address] [place] [address] [place] GLOMERULAR FILTRATION RATE ML/MIN/1.73 SQ M.PREDICTED 40.0 mL/min/1.73m*2 Low >60.0 [facility] Comment on above: Result Comment: Calc ulation based on the Chronic Kidney Disease Epidemiology Collaboration (CKD-EPI) equation refit without adjustment for race Performed By: #### L AB103, LAB17 ####Funeral Home Director: UNA ARCE ([id number])[facility] [place] ([facility])[address] Glucose [Mass/Vol] 88 mg/dL Normal 82-115 [facility] Comment on above: Performed By: #### L AB103, LAB17 ####Funeral Home Director: UNA ARCE ([id number])[facility] [place] ([facility])[address] Potassium [Moles/Vol] 3.6 mmol/L Normal 3.5-5.1 [facility] Comment on above: Result Comment: [facility] potassium values may be up to 0.5 mmol/L lower than serum values. Performed By: #### L AB103, LAB17 ####Funeral Home Director: UNA ARCE ([phone])[facility] [place] ([facility])[address] Protein [Mass/Vol] 5.7 g/dL Low 6.4-8.3 [facility] Comment on above: Performed By: #### L AB103, LAB17 ####Funeral Home Director: UNA ARCE ([id number])[facility] [place] ([facility])[address] Sodium [Moles/Vol] 143 mmol/L Normal 136-145 [facility] Comment on above: Performed By: #### L AB103, LAB17 ####Funeral Home Director: UNA ARCE ([id number])[facility] [place] ([facility])[address] Urea nitrogen [Mass/Vol] 26 mg/dL High 9-23 [facility] Comment on above: Performed By: #### L AB103, LAB17 ####Funeral Home Director: UNA ARCE ([phone])[facility] [place] ([facility])[address] Comprehensive metabolic 1998 panelon 07-30-2025 Albumin [Mass/Vol] 2.4 g/dL Low 3.4 - 4.8 g/dL [facility] ALP [Catalytic activity/Vol] 57 U/L 40 - 150 U/L [facility] ALT [Catalytic activity/Vol] U/L NINF - 40 U/L [facility] Anion gap [Moles/Vol] 14 mmol/L High 3 - 13 mmol/L [facility] AST [Catalytic activity/Vol] 23 U/L NINF - 34 U/L [facility] Bilirubin [Mass/Vol] 0.7 mg/dL NINF - 1.2 mg/dL [facility] Calcium [Mass/Vol] 7.9 mg/dL Low 8.8 - 10. 0 mg/dL [facility] Chloride [Moles/Vol] 98 mmol/L 98 - 10 7 mmol/L [facility] CO2 [Moles/Vol] 31 mmol/L 23 - 31 mmol/L [facility] Creatinine [Mass/Vol] 1.63 mg/dL High 0.72 - 1.25 mg/dL [facility] GFR/1.73 sq M.predicted (S/P/Bld) [Vol rate/Area] 40 mL/min Low - PINF [facility] Glucose [Mass/Vol] 88 mg/dL 82 - 115 mg/dL [facility] Interpretation and review of laboratory results Abnormal [facility] Potassium [Moles/Vol] 3.6 mmol/L 3.5 - 5.1 mmol/L [facility] Protein [Mass/Vol] 5.7 g/dL Low 6.4 - 8.3 g/dL [facility] Sodium [Moles/Vol] 143 mmol/L 136 - 145 mmol/L [facility] Urea nitrogen [Mass/Vol] 26 mg/dL High 9 - 23 mg/d L [facility] Consulton 04-07-2025 Consult Normal [facility] Laboratory - Chemistry and C hemistry - challengeon 04-07-2025 Magnesium [Mass/Vol] 1.7 mg/dL 1.6 - 2 .6 mg/dL [facility] Laboratory - Hematology and Cell countson 04-07-2025 Anisocytosis Ql (Bld) Slight Abnormal (none) [facility] Eosinophils (Bld) [#/Vol] 0.3 10*3/uL 0.0 - 0.5 10*3/uL [facility] Eosinophils/100 WBC (Bld) 3 % 0 - 6 % [facility] Hypochromia Ql (Bld) Moderate Abnormal (none) [facility] Lymphocytes (Bld) [#/Vol] 0.9 10*3/uL Low 1.0 - 4.3 10*3/uL [facility] Lymphocytes/100 WBC (Bld) 8 % Low 15 - 45 % [facility] Monocytes (Bld) [#/Vol] 0.8 10*3/uL 0.0 - 0.9 10*3/uL [facility] Monocytes/100 WBC (Bld) 7 % 5 - 13 % [facility] Neutrophils (Bld) [#/Vol] 9.5 10*3/uL High 1.8 - 7.5 10*3/uL [facility] Nucleated RBC/100 WBC (Bld) [Ratio] 1 % 0 - 2 % [facility] Poikilocytosis LM Ql (Bld) Slight Abnormal (none) [facility] RBC morphology finding Nom (Bld) abnormal [facility] Segmented neutrophils/100 WBC (Bld) 83 % High 38 - 82 % [facility] Stomatocytes LM Ql (Bld) Moderate Abnormal (none) [facility] MAGNESIUMon 04-07-2025 Magnesium [Mass/Vol] 1.7 mg/dL Normal 1.6-2.6 [facility] Comment on above: Result Comment: YARELI [place] COMMENTS:Higher values can be expected in females during menses. Performed By: #### L AB103, LAB17 ####Funeral Home Director: UNA ARCE ([id number])[facility] ([facility])[address] [place] [address] MANUAL DIFFERENTIAL (CELLAVI BANDAR)on 04-07-2025 ANISOCYTOSIS PRESENCE IN BLOOD BY LIGHT MICROSCOPY Slight Abnormal (none) [facility] Comment on above: Performed By: #### L [id number] ####Funeral Home Director: UNA ARCE ([id number])[facility] ([facility])[address] BAND NEUTROPHILS TOTAL PER COUNTED LEUKOCYTES BY MANUAL COUNT Normal [facility] Comment on above: Performed By: #### L [id number] ####Funeral Home Director: UNA ARCE ([id number])[facility] ([facility])[address] [place] [address] [place] BASOPHILS TOTAL PER COUNTED LEUKOCYTES BY MANUAL COUNT Normal [facility] Comment on above: Performed By: #### L [id number] ####Funeral Home Director: UNA STAUFFERMELANIE ([id number])[facility] [place] ([facility])[address] [place] [address] [place] BLASTS TOTAL PER COUNTED LEUKOCYTES BY MANUAL COUNT Normal [facility] Comment on above: Performed By: #### L [id number], [id number] ####Funeral Home Director: UNA ARCE ([phone])[facility] [place] ([facility])[address] [place] [address] [place] EOSINOPHILS (10*3/UL) IN BLOOD-CELLAVISION 0.3 10*3/uL Normal 0.0-0.5 [facility] Comment on above: Performed By: #### L [id number], [id number] ####Funeral Home Director: UNA ARCE ([phone])[facility] [place] ([facility])[address] [place] [address] [place] EOSINOPHILS TOTAL PER COUNTED LEUKOCYTES BY MANUAL COUNT 3 High 0-1 [facility] Comment on above: Performed By: #### L [id number], [id number] ####Funeral Home Director: UNA ARCE ([phone])[facility] [place] ([facility])[address] [place] [address] [place] EOSINOPHILS/100 LEUKOCYTES IN BLOOD-CELLAVISION 3 % Normal 0-6 [facility] Comment on above: Performed By: #### L [id number], [id number] ####Funeral Home Director: UNA ARCE ([phone])[facility] [place] ([facility])[address] [place] [address] [place] HYPOCHROMIA (PRESENCE) IN BLOOD BY LIGHT MICROSCOPY Moderate Abnormal (none) [facility] Comment on above: Performed By: #### L [id number], [id number] ####Funeral Home Director: UNA ARCE ([phone])[facility] [place] (SBHLAB)[address] [place] [address] [place] LYMPHOCYTES (10*3/UL) IN BLOOD-CELLAVISION 0.9 10*3/uL Low 1.0-4.3 [facility] Comment on above: Performed By: #### L [id number], [id number] ####Funeral Home Director: UNAANJEL ARCE ([phone])[facility] [place] (SBHL[facility])[address] [place] [address] [place] LYMPHOCYTES TOTAL PER COUNTED LEUKOCYTES BY MANUAL COUNT 8 Normal [facility] Comment on above: Performed By: #### L [id number], [id number] ####Funeral Home Director: UNA ARCE ([phone])[facility] [place] (SB[facility])[address] [place] [address] [place] LYMPHOCYTES/100 LEUKOCYTES IN BLOOD-CELLAVISION 8 % Low 15-45 [facility] Comment on above: Performed By: #### L [id number], [id number] ####Funeral Home Director: UNAANJEL ARCE ([phone])[facility] [place] (SB[facility])[address] [place] [address] [place] METAMYELOCYTES TOTAL PER COUNTED LEUKOCYTES BY MANUAL COUNT Normal [facility] Comment on above: Performed By: #### L [id number], [id number] ####Funeral Home Director: UNA YAZMIN ([phone])[facility] [place] ([facility])[address] [place] [address] [place] MONOCYTES (10*3/UL) IN BLOOD-CELLAVISION 0.8 10*3/uL Normal 0.0-0.9 [facility] Comment on above: Performed By: #### L [id number], [id number] ####Funeral Home Director: UNA YAZMIN ([phone])[facility] [place] (SB[facility])[address] [place] [address] [place] MONOCYTES TOTAL PER COUNTED LEUKOCYTES BY MANUAL COUNT 7 Normal [facility] Comment on above: Performed By: #### L [id number], [id number] ####Funeral Home Director: UNA ARCE ([phone])[facility] [place] ([facility])[address] [place] [address] [place] MONOCYTES/100 LEUKOCYTES IN BLOOD-LUCIANA 7 % Normal 5-13 [facility] Comment on above: Performed By: #### L [id number], [id number] ####Funeral Home Director: UNA ARCE ([phone])[facility] [place] ([facility])[address] [place] [address] [place] MYELOCYTES COUNTED BY MANUAL COUNT Normal [facility] Comment on above: Performed By: #### L [id number], [id number] ####Funeral Home Director: UNA ARCE ([phone])[facility] [place] (SB[facility])[address] [place] [address] [place] NEUTROPHILS TOTAL PER COUNTED LEUKOCYTES BY MANUAL COUNT 86 Normal [facility] Comment on above: Performed By: #### L [id number], [id number] ####Funeral Home Director: UNA ARCE ([phone])[facility] [place] ([facility])[address] [place] [address] [place] NUCLEATED ERYTHROCYTES/100 LEUKOCTES IN BLOOD-CELLAVISION 1 % Normal 0-2 [facility] Comment on above: Performed By: #### L [id number], [id number] ####Funeral Home Director: UNA ARCE ([phone])[facility] [place] ([facility])[address] [place] [address] [place] POIKILOCYTOSIS (PRESENCE) IN BLOOD BY LIGHT MICROSCOPY Slight Abnormal (none) [facility] Comment on above: Performed By: #### L [id number], [id number] ####Funeral Home Director: UNA ARCE ([phone])[facility] [place] ([facility])[address] [place] [address] [place] PROMYELOCYTES TOTAL PER COUNTED LEUKOCYTES BY MANUAL COUNT Normal [facility] Comment on above: Performed By: #### L [id number], [id number] ####Funeral Home Director: UNA [phone])MONISHAAngel [place] (SBHLAB)[address] [place] [address] [place] RBC MORPHOLOGY IN BLOOD abnormal Normal [facility] Comment on above: Performed By: #### L [id number], [id number] ####Funeral Home Director: UNA ARCE ([phone])[facility] [place] (SB[facility])[address] [place] [address] [place] SEGMENTED NEUTROPHILS (10*3/UL) IN BLOOD-CELLAVISION 9.5 10*3/uL High 1.8-7.5 [facility] Comment on above: Performed By: #### L [id number], [id number] ####Funeral Home Director: UNA ARCE ([phone])[facility] [place] (SB[facility])[address] SEGMENTED NEUTROPHILS/100 LEUKOCYTES-CE 83 % High 38-82 [facility] Comment on above: Performed By: #### L [id number], [id number] ####Funeral Home Director: UNA ARCE ([phone])[facility] [place] ([facility])[address] [place] [address] [place] STOMATOCYTES IN BLOOD BY LIGHT MICROSCOPY Moderate Abnormal (none) [facility] Comment on above: Performed By: #### L [id number], [id number] ####Funeral Home Director: UNA ARCE ([phone])[facility] [place] (SBHL[facility])[address] UNCLASSIFIED CELLS TOTAL PER COUNTED LEUKOCYTES BY MANUAL COUNT [facility] Comment on above: Performed By: #### L [id number], [id number] ####Funeral Home Director: UNA ARCE ([phone])[facility] [place] ([facility])[address] [place] [address] [place] VARIANT LYMPHOCYTES TOTAL PER COUNTED LEUKOCYTES BY MANUAL COUNT [facility] Comment on above: Performed By: #### L [id number], [id number] ####Funeral Home Director: UNA ARCE ([phone])[facility] (SBHLAB)[address] Magnesium [Mass/Vol]on 04-07 Interpretation and review of laboratory results Normal [facility] No Panel Informationon 04-07 Eosinophils Manual 3 High 0 - 1 [facility] Lymphocytes Manual 8 [facility] Monocytes Manual 7 [facility] Neutrophils Manual 86 [facility] No Panel InformationOrdered By: Sharita Beck on 04-07-2025 Interpretation and review of laboratory results Abnormal [facility] Progress Noteon 04-07-2025 Progress Note Normal [facility] Progress Note Normal [facility] Normal [facility] Progress Note Normal [facility] Progress Note Normal [facility] [id number] 04-06-2025 [id number] Normal [facility] CBC W Auto Differential pane l (Bld)Ordered By: Annmarie Zuñiga on 04-06-2025 Hematocrit (Bld) [Volume fraction] 27.2 % Low 40.0 - 52.0 % [facility] Hemoglobin (Bld) [Mass/Vol] 7.6 g/dL Low 13.0 - 18.0 g/dL [facility] MCH (RBC) [Entitic mass] 22 pg Low 26. 0 - 34.0 pg [facility] MCV (RBC) [Entitic vol] 78.6 fL 77.0 - 99.0 fL [facility] RBC (Bld) [#/Vol] 3.46 10*6/uL Low 4.40 - 5.9 0 10*6/uL [facility] CBC WITH AUTO DIFFERENTIALon 04-06-2025 Erythrocyte distribution width (RBC) [Ratio] 20.5 % High 11.5-15.0 [facility] Comment on above: Performed By: #### L [id number], [id number] ####Funeral Home Director: UNA ARCE ([phone])[facility] (SB[facility])[address] Hematocrit (Bld) [Volume fraction] 27.2 % Low 40.0-52.0 [facility] Comment on above: Performed By: #### L [id number], [id number] ####Funeral Home Director: UNA ARCE ([phone])[facility] [place] (SBHLAB)[address] Hemoglobin (Bld) [Mass/Vol] 7.6 g/dL Low 13.0-18.0 [facility] Comment on above: Performed By: #### L [id number], [id number] ####Funeral Home Director: UNA ARCE ([phone])[facility]ENTERAngel [facility]BNEW [facility] (SBHLAB)[address] MCH (RBC) [Entitic mass] 22.0 pg Low 26.0-34.0 [facility] Comment on above: Performed By: #### L [id number], [id number] ####Funeral Home Director: UNA ARCE ([id number])[facility] [place] (SBHLAB)[address] MCHC 27.9 % Low 30.5-36.0 [facility] Comment on above: Performed By: #### L [id number], [id number] ####Funeral Home Director: UNA ARCE ([phone])[facility] (SB[facility])[address] MCV (RBC) [Entitic vol] 78.6 fL Normal 77.0-99.0 [facility] Comment on above: Performed By: #### L [id number], [id number] ####Funeral Home Director: UNA RACE ([id number])[facility]Angel [facility]BNEW [facility] (SB[facility])[address] Platelet mean volume (Bld) [Entitic vol] 9.7 fL Normal 9.0-12.7 [facility] Comment on above: Performed By: #### L [id number], [id number] ####Funeral Home Director: UNA ARCE ([phone])[facility]ENTERAngel [place] (SBHLAB)[address] [place] [address] [place] Platelets (Bld) [#/Vol] 344 10*3/uL Normal 140-440 [facility] Comment on above: Performed By: #### L [id number], [id number] ####Funeral Home Director: UNA ARCE ([phone])[facility] [place] ([facility])[address] RBC (Bld) [#/Vol] 3.46 10*6/uL Low 4.40-5.90 [facility] Comment on above: Performed By: #### L [id number], [id number] ####Funeral Home Director: UNA ARCE ([phone])[facility] [place] ([facility])[address] WBC (Bld) [#/Vol] 10.3 10*3/uL Normal 3.6-10.7 [facility] Comment on above: Performed By: #### L [id number], [id number] ####Funeral Home Director: UNA ARCE ([phone])[facility] [place] ([facility])[address] COMPREHENSIVE METABOLIC PANE Anant 04-06-2025 Albumin [Mass/Vol] 2.6 g/dL Low 3.4-4.8 [facility] Comment on above: Performed By: #### L AB103, LAB17 ####Funeral Home Director: UNA ARCE ([id number])[facility] [place] ([facility])[address] ALP [Catalytic activity/Vol] 63 U/L Normal 40-150 [facility] Comment on above: Performed By: #### L AB103, LAB17 ####Funeral Home Director: UNA ARCE ([phone])[facility] [place] ([facility])[address] ALT [Catalytic activity/Vol] 6 U/L Normal <40 [facility] Comment on above: Performed By: #### L AB103, LAB17 ####Funeral Home Director: UNA ARCE ([id number])[facility] [place] ([facility])[address] Anion gap [Moles/Vol] 13 mmol/L Normal 3-13 [facility] Comment on above: Performed By: #### L AB103, LAB17 ####Funeral Home Director: UNA ARCE ([id number])[facility] [place] (SB[facility])[address] AST [Catalytic activity/Vol] 25 U/L Normal <34 [facility] Comment on above: Performed By: #### L AB103, LAB17 ####Funeral Home Director: UNA ARCE ([phone])[facility] [place] ([facility])[address] Bilirubin [Mass/Vol] 1.7 mg/dL High <1.2 [facility] Comment on above: Performed By: #### L AB103, LAB17 ####Funeral Home Director: UNA ARCE ([phone])[facility] [place] (SB[facility])[address] Calcium [Mass/Vol] 8.2 mg/dL Low 8.8-10.0 [facility] Comment on above: Performed By: #### L AB103, LAB17 ####Funeral Home Director: UNA ARCE ([phone])[facility] [place] ([facility])[address] Chloride [Moles/Vol] 104 mmol/L Normal 98-107 [facility] Comment on above: Performed By: #### L AB103, LAB17 ####Funeral Home Director: UNA ARCE ([id number])[facility] [place] ([facility])[address] [place] [address] [place] CO2 [Moles/Vol] 26 mmol/L Normal 23-31 [facility] Comment on above: Performed By: #### L AB103, LAB17 ####Funeral Home Director: UNA ARCE ([phone])[facility] [place] ([facility])[address] [place] [address] [place] Creatinine [Mass/Vol] 1.44 mg/dL High 0.72-1.25 [facility] Comment on above: Performed By: #### L DERICK, LAB17 ####Funeral Home Director: UNA ARCE ([phone])[facility] [place] [address] [place] GLOMERULAR FILTRATION RATE ML/MIN/1.73 SQ M.PREDICTED 46.4 mL/min/1.73m*2 Low >60.0 [facility] Comment on above: Result Comment: Calc ulation based on the Chronic Kidney Disease Epidemiology Collaboration (CKD-EPI) equation refit without adjustment for race Performed By: #### Gilbert SEPULVEDA, LAB17 ####Funeral Home Director: UNA ARCE ([phone])[facility] ([facility])[address] Glucose [Mass/Vol] 98 mg/dL Normal 82-115 [facility] Comment on above: Performed By: #### Gilbert SEPULVEDA, LAB17 ####Funeral Home Director: UNA ARCE ([id number])[facility] Potassium [Moles/Vol] 4.2 mmol/L Normal 3.5-5.1 [facility] Comment on above: Result Comment: [facility] potassium values may be up to 0.5 mmol/L lower than serum values. Performed By: #### Gilbert SEPULVEDA, LAB17 ####Funeral Home Director: UNA ARCE ([phone])[facility] (HLAB)[address] Protein [Mass/Vol] 6.1 g/dL Low 6.4-8.3 [facility] Comment on above: Performed By: #### L AB103, LAB17 ####Funeral Home Director: UNA ARCE ([id number])[facility] (HL[facility])[address] Sodium [Moles/Vol] 143 mmol/L Normal 136-145 [facility] Comment on above: Performed By: #### L AB103, LAB17 ####Funeral Home Director: UNA ARCE ([id number])[facility]Angel [place] ([place])[address] Urea nitrogen [Mass/Vol] 24 mg/dL High 06-01 [facility] Comment on above: Performed By: #### L AB103, LAB17 ####Funeral Home Director: UNA ARCE ([phone])[facility] [place] (SBHLAB)[address] ABDOMEN PELVIS WO IV CONT RASTon 04-06-2025 CT ABDOMEN PELVIS WO IV CONTRAST Normal [facility] CT Abdomen and Pelvis WO con traston 04-06-2025 [facility] Radiology Study observation (narrative) Lynette Balderrama alth CT Abdomen and Pelvis WO con trastOrdered By: Sergey Gooden on 04-06-2025 [facility] Phone: CT CHEST WO IV CONTRASTon CT CHEST WO IV CONTRAST Normal S [facility] CT Chest WO contraston 04-06 [facility] Radiology Study observation (narrative) Lynette Balderrama alth CT Chest WO contrastOrdered By: Cari Lazaro on 04-06-2025 [facility] [employer] Phone: Consulton 04-06-2025 Consult Normal [facility] Consult Normal [facility] ECG 12-LEADon 04-06-2025 ECG 12-LEAD IMPRESSION: Sinus arrhythmia Nonspecific intraventricular conduction delay Probable anterolateral infarct, old No previous ECG for comparison Electronically Signed On 04-06-2025 01:54:21 EDT by Maik Laird Normal [facility] IRON AND TIBCon 04-06-2025 IRON BINDING CAPACITY 381 ug/dL Normal 250-450 [facility] Comment on above: Performed By: #### L [id number] ####Funeral Home Director: UNA ARCE ([phone])[facility] (SBHLAB)[address] [place] [address] IRON SATURATION 49.3 % Normal 20.0-50.0 [facility] Comment on above: Performed By: #### L AB829 ####Funeral Home Director: UNA ARCE ([phone])[facility] ([facility])[address] IRON, TOTAL 188 ug/dL High 65-175 [facility] Comment on above: Performed By: #### L AB829 ####Funeral Home Director: UNA ARCE ([id number])[facility] Laboratory - Hematology and Cell countson 04-06-2025 Basophils (Bld) [#/Vol] 0.2 10*3/uL 0.0 - 0.2 10*3/uL [facility] Basophils/100 WBC (Bld) 2 % 0 - 2 % [facility] Lymphocytes (Bld) [#/Vol] 1.4 10*3/uL 1.0 - 4.3 10*3/uL [facility] Lymphocytes/100 WBC (Bld) 14 % Low 15 - 45 % [facility] Monocytes (Bld) [#/Vol] 0.7 10*3/uL 0.0 - 0.9 10*3/uL [facility] Monocytes/100 WBC (Bld) 7 % 5 - 13 % [facility] RBC morphology finding Nom (Bld) abnormal [facility] MAGNESIUMon 04-06-2025 Magnesium [Mass/Vol] 1.8 mg/dL Normal 1.6-2.6 [facility] Comment on above: Result Comment: YARELI [place] COMMENTS:Higher values can be expected in females during menses. Performed By: #### L AB103, LAB17 ####Funeral Home Director: UNA ARCE ([id number])[facility] [place] [address] MANUAL DIFFERENTIAL (CELLAVI BANDAR)on 04-06-2025 ANISOCYTOSIS PRESENCE IN BLOOD BY LIGHT MICROSCOPY Moderate Abnormal (none) [facility] Comment on above: Performed By: #### L [id number], [id number] ####Funeral Home Director: UNA ARCE ([id number])[facility] [place] (SBHLAB)[address] [place] [address] [place] BAND NEUTROPHILS TOTAL PER COUNTED LEUKOCYTES BY MANUAL COUNT 1 Normal [facility] Comment on above: Performed By: #### L [id number], [id number] ####Funeral Home Director: UNA ARCE ([id number])[facility] [place] ([facility])[address] [place] [address] [place] BANDS (10*3/UL) IN BLOOD-CELLAVISION 0.1 10*3/uL High <=0.0 [facility] Comment on above: Performed By: #### L [id number], [id number] ####Funeral Home Director: UNA ARCE ([id number])[facility] [place] ([facility])[address] [place] [address] [place] BASOPHILS (10*3/UL) IN BLOOD-CELLAVISION 0.2 10*3/uL Normal 0.0-0.2 [facility] Comment on above: Performed By: #### L [id number], [id number] ####Funeral Home Director: UNA ARCE ([phone])[facility] [place] ([facility])[address] [place] [address] [place] BASOPHILS TOTAL PER COUNTED LEUKOCYTES BY MANUAL COUNT 2 Normal [facility] Comment on above: Performed By: #### L [id number], [id number] ####Funeral Home Director: UNA ARCE ([id number])[facility] [place] ([facility])[address] [place] [address] [place] BASOPHILS/100 LEUKOCYTES IN BLOOD-CELLAVISION 2 % Normal 0-2 [facility] Comment on above: Performed By: #### L [id number], [id number] ####Funeral Home Director: UNA ARCE ([phone])[facility] [place] ([facility])[address] [place] [address] [place] BLASTS TOTAL PER COUNTED LEUKOCYTES BY MANUAL COUNT Normal [facility] Comment on above: Performed By: #### L [id number], [id number] ####Funeral Home Director: UNA ARCE ([phone])[facility] [place] (SBHL[facility])[address] [place] [address] [place] EOSINOPHILS TOTAL PER COUNTED LEUKOCYTES BY MANUAL COUNT Normal [facility] Comment on above: Performed By: #### L [id number], [id number] ####Funeral Home Director: UNA ARCE ([id number])[facility] [place] ([facility])[address] HYPOCHROMIA (PRESENCE) IN BLOOD BY LIGHT MICROSCOPY Moderate Abnormal (none) [facility] Comment on above: Performed By: #### L [id number], [id number] ####Funeral Home Director: UNA ARCE ([id number])[facility] [place] ([facility])[address] [place] [address] [place] LYMPHOCYTES (10*3/UL) IN BLOOD-CELLAVISION 1.4 10*3/uL Normal 1.0-4.3 [facility] Comment on above: Performed By: #### L [id number], [id number] ####Funeral Home Director: UNA ARCE ([phone])[facility] [place] ([facility])[address] [place] [address] [place] LYMPHOCYTES TOTAL PER COUNTED LEUKOCYTES BY MANUAL COUNT 14 Normal [facility] Comment on above: Performed By: #### L [id number], [id number] ####Funeral Home Director: UNA ARCE ([phone])[facility] [place] ([facility])[address] [place] [address] [place] LYMPHOCYTES/100 LEUKOCYTES IN BLOOD-CELLAVISION 14 % Low 15-45 [facility] Comment on above: Performed By: #### L [id number], [id number] ####Funeral Home Director: UNA ARCE ([id number])[facility] [place] ([facility])[address] [place] [address] [place] METAMYELOCYTES TOTAL PER COUNTED LEUKOCYTES BY MANUAL COUNT Normal [facility] Comment on above: Performed By: #### L [id number], [id number] ####Funeral Home Director: UNA [phone])[facility] [place] ([facility])[address] [place] [address] [place] MICROCYTES (PRESENCE) IN BLOOD BY LIGHT MICROSCOPY Slight Abnormal (none) [facility] Comment on above: Performed By: #### L [id number], [id number] ####Funeral Home Director: UNA ARCE ([id number])[facility] [place] ([facility])[address] [place] [address] [place] MONOCYTES (10*3/UL) IN BLOOD-CELLAVISION 0.7 10*3/uL Normal 0.0-0.9 [facility] Comment on above: Performed By: #### L [id number], [id number] ####Funeral Home Director: UNA ARCE ([id number])[facility] [place] ([facility])[address] MONOCYTES TOTAL PER COUNTED LEUKOCYTES BY MANUAL COUNT 7 Normal [facility] Comment on above: Performed By: #### L [id number], [id number] ####Funeral Home Director: UNA ARCE ([phone])[facility] [place] ([facility])[address] [place] [address] [place] MONOCYTES/100 LEUKOCYTES IN BLOOD-LUCIANA 7 % Normal 5-13 [facility] Comment on above: Performed By: #### L [id number], [id number] ####Funeral Home Director: UNA ARCE ([phone])[facility] [place] ([facility])[address] [place] [address] [place] MYELOCYTES COUNTED BY MANUAL COUNT Normal [facility] Comment on above: Performed By: #### L [id number], [id number] ####Funeral Home Director: UNA ARCE ([phone])[facility] [place] ([facility])[address] [place] [address] [place] NEUTROPHILS BAND FORM/100 LEUKOCYTES IN BLOOD-CELLAVISI 1 % High <=0 [facility] Comment on above: Performed By: #### L [id number], [id number] ####Funeral Home Director: UNA ARCE ([phone])[facility] [place] ([facility])[address] [place] [address] [place] NEUTROPHILS TOTAL PER COUNTED LEUKOCYTES BY MANUAL COUNT 79 Normal [facility] Comment on above: Performed By: #### L [id number], [id number] ####Funeral Home Director: UNA STAUFFERMELANIE ([id number])[facility] [place] ([facility])[address] [place] [address] [place] NUCLEATED ERYTHROCYTES/100 LEUKOCTES IN BLOOD-CELLAVISION 1 % Normal 0-2 [facility] Comment on above: Performed By: #### L [id number], [id number] ####Funeral Home Director: UNA ARCE ([id number])[facility] [place] ([facility])[address] [place] [address] [place] POIKILOCYTOSIS (PRESENCE) IN BLOOD BY LIGHT MICROSCOPY Slight Abnormal (none) [facility] Comment on above: Performed By: #### L [id number], [id number] ####Funeral Home Director: UNA STAUFFERMELANIE ([id number])[facility] [place] ([facility])[address] [place] [address] [place] PROMYELOCYTES TOTAL PER COUNTED LEUKOCYTES BY MANUAL COUNT Normal [facility] Comment on above: Performed By: #### L [id number], [id number] ####[facility] Home Director: UNA ARCE ([id number])[facility] [place] ([facility])[address] [place] [address] [place] RBC MORPHOLOGY IN BLOOD abnormal Normal S [facility] Comment on above: Performed By: #### L [id number], [id number] ####Funeral Home Director: UNA ARCE ([id number])[facility] [place] ([facility])[address] [place] [address] [place] SEGMENTED NEUTROPHILS (10*3/UL) IN BLOOD-CELLAVISION 8.0 10*3/uL High 1.8-7.5 [facility] Comment on above: Performed By: #### L [id number], [id number] ####Funeral Home Director: UNA ARCE ([id number])[facility] [place] ([facility])[address] SEGMENTED NEUTROPHILS/100 LEUKOCYTES-CE 77 % Normal 38-82 [facility] Comment on above: Performed By: #### L [id number], [id number] ####Funeral Home Director: UNA ARCE ([id number])[facility] [place] ([facility])[address] STOMATOCYTES IN BLOOD BY LIGHT MICROSCOPY Slight Abnormal (none) [facility] Comment on above: Performed By: #### L [id number], [id number] ####Funeral Home Director: UNAANJEL ARCE ([id number])[facility] [place] ([facility])[address] UNCLASSIFIED CELLS TOTAL PER COUNTED LEUKOCYTES BY MANUAL COUNT Normal [facility] Comment on above: Performed By: #### L [id number], [id number] ####Funeral Home Director: UNAANJEL ARCE ([id number])[facility] [place] ([facility])[address] VARIANT LYMPHOCYTES TOTAL PER COUNTED LEUKOCYTES BY MANUAL COUNT Normal [facility] Comment on above: Performed By: #### L [id number], [id number] ####Funeral Home Director: UNA ARCE ([id number])[facility] [place] ([facility])[address] Nursing Noteon 04-06-2025 Nursing Note Normal [facility] Nursing Note Transfused two pint of blood. No any allergic reaction seen.vital signs are within normal limits. Normal [facility] Progress Noteon 04-06-2025 Progress Note Normal [facility] US Heart TransthoracicOrdere d By: Thomas Hinton on 04-06-2025 Ao Root Index 1.47 cm/m2 [facility] Work Phone: Aortic Root 3 cm [facility] Work Phone: Aortic valve Mean systole pressure gradient by US.doppler derived full Bernoulli 7 mmHg [facility] Work Phone: Aortic valve Orifice area by US 3.1 cm2 [facility] Work Phone: Aortic valve Peak systolic flow by US.doppler 1.3 m/s [facility] Work Phone: Ascending Aorta 3.1 cm [facility] Work Phone: Ascending Aorta Index 1.52 cm/m2 [facility] Work Phone: AV Area by Peak Velocity 1.5 cm2 [facility] Work Phone: AV Area by VTI 1.3 cm2 [facility] Work Phone: AV Peak Gradient 15 mmHg [facility] Work Phone: AV Peak Velocity 1.9 m/s [facility] Work Phone: AV Velocity Ratio 0.47 [facility] Work Phone: AV VTI 37.4 cm [facility] Work Phone: JULIET/BSA Peak Velocity 0.7 cm2/m2 [facility] Work Phone: JULIET/BSA VTI 0.6 cm2/m2 [facility] Work Phone: E/E' Lateral 23 [facility] Work Phone: Est. RA Pressure 15 mmHg [facility] Work Phone: Fractional Shortening 2D 8 % 28 - 44 % [facility] Work Phone: Interpretation and review of laboratory results Abnormal [facility] Work Phone: IVSd 1.1 cm Abnormal 0.6 - 1.0 cm [facility] Work Phone: LA Diameter 4 cm [facility] Work Phone: LA Size Index 1.96 cm/m2 [facility] Work Phone: LA Volume 4C 56 mL 18 - 58 mL [facility] Work Phone: LA Volume Index 4C 27 mL/m2 16 - 34 mL/m2 [facility] Work Phone: LA/AO Root Ratio 1.33 [facility] Work Phone: Left ventricular Ejection fraction by US.2D+Calculated by biplane method of disks 22 % Abnormal 55 - 100 % [facility] Work Phone: LV E' Lateral Velocity 5 cm/s [facility] Work Phone: LV EDV A2C 331 mL [facility] Work Phone: LV EDV A4C 293 mL [facility] Work Phone: LV EDV BP 315 mL Abnormal 67 - 155 mL [facility] Work Phone: LV EDV Index A2C 162 mL/m2 [facility] Work Phone: LV EDV Index A4C 144 mL/m2 [facility] Work Phone: LV EDV Index BP 154 mL/m2 [facility] Work Phone: LV Ejection Fraction A2C 26 % [facility] Work Phone: LV Ejection Fraction A4C 22 % [facility] Work Phone: LV ESV A2C 245 mL [facility] Work Phone: LV ESV A4C 229 mL [facility] Work Phone: LV ESV BP 247 mL Abnormal 22 - 58 mL [facility] Work Phone: LV ESV Index A2C 120 mL/m2 [facility] Work Phone: LV ESV Index A4C 112 mL/m2 [facility] Work Phone: LV ESV Index BP 121 mL/m2 [facility] Work Phone: LV Mass 2D 246.9 g Abnormal 88 - 224 g [facility] Work Phone: LV Mass 2D Index 121 g/m2 Abnormal 49 - 115 g/m2 [facility] [employer] Work Phone: LV RWT Ratio 0.3 [facility] [employer] Work Phone: LVIDd 6 cm Abnormal 4.2 - 5.9 cm [facility] [employer] Work Phone: LVIDd Index 2.94 cm/m2 [facility] [employer] Work Phone: LVIDs 5.5 cm [facility] Work Phone: LVIDs Index 2.7 cm/m2 [facility] [employer] Work Phone: LVOT Cardiac Output 3.2 liter/minute [facility] Work Phone: LVOT Diameter 2 cm [facility] [employer] [facility] Work Phone: LVOT Mean Gradient 2 mmHg [facility] [employer] Work Phone: LVOT Peak Gradient 3 mmHg [facility] [employer] Work Phone: LVOT Peak Velocity 0.9 m/s [facility] [employer] Work Phone: LVOT Stroke Volume Index 23.2 mL/m2 [facility] [employer] Work Phone: LVOT SV 47.4 ml [facility] [employer] Work Phone: LVOT VTI 15.1 cm [facility] [employer] Work Phone: LVOT:AV VTI Index 0.4 [facility] [employer] [facility] Work Phone: LVPWd 0.9 cm 0.6 - 1.0 cm [facility] [employer] Work Phone: MR VTI 139.2 cm [facility] Work Phone: MV A Velocity 1.12 m/s [facility] Work Phone: MV E Velocity 1.15 m/s [facility] Work Phone: MV E Wave Deceleration Time 179.2 ms [facility] [employer] Work Phone: MV E/A 1.03 [facility] Work Phone: MV Nyquist Velocity 36 cm/s [facility] Work Phone: MV Regurg Velocity PISA 4.6 m/s [facility] Work Phone: RA Area 4C 34.5 mL [facility] Work Phone: RV Free Wall Peak S' 13 cm/s [facility] Work Phone: RVSP 66 mmHg [facility] Work Phone: TAPSE 2.4 cm 1.7 cm [facility] Work Phone: TR Max Velocity 3.58 m/s [facility] Work Phone: TR Peak Gradient 51 mmHg [facility] Work Phone: [facility] Work Phone: US Heart Transthoracicon CV CPACS BASIC METABOLIC PANELon 03-10 Anion gap [Moles/Vol] 8 mmol/L Normal 3-13 [facility] Comment on above: Performed By: #### L AB89, [id number], LAB67, LAB69, LAB15, [id number], [id number], LAB20 ####Funeral Home Director: UNA ARCE ([id number])[facility] [place] [address] Calcium [Mass/Vol] 8.4 mg/dL Low 8.8-10.0 [facility] Comment on above: Performed By: #### L AB89, RIW800, LAB67, LAB69, LAB15, OJZ516, [id number], LAB20 ####Funeral Home Director: UNA ARCE ([id number])[facility] [place] [address] Chloride [Moles/Vol] 105 mmol/L Normal 98-107 [facility] Comment on above: Performed By: #### L AB89, [id number], LAB67, LAB69, LAB15, RMW626, [id number], LAB20 ####Funeral Home Director: UNA ARCE ([id number])[facility] ([facility])[address] CO2 [Moles/Vol] 27 mmol/L Normal 23-31 [facility] Comment on above: Performed By: #### L AB89, [id number], LAB67, LAB69, LAB15, KIF724, [id number], LAB20 ####Funeral Home Director: UNA ARCE ([id number])[facility] ([facility])[address] Creatinine [Mass/Vol] 1.46 mg/dL High 0.72-1.25 [facility] Comment on above: Performed By: #### L AB89, RAZ501, LAB67, LAB69, LAB15, NEG114, [id number], LAB20 ####Funeral Home Director: UNA ARCE ([id number])[facility] GLOMERULAR FILTRATION RATE ML/MIN/1.73 SQ M.PREDICTED 45.7 mL/min/1.73m*2 Low >60.0 [facility] Comment on above: Result Comment: Calc ulation based on the Chronic Kidney Disease Epidemiology Collaboration (CKD-EPI) equation refit without adjustment for race Performed By: #### L AB89, HVU623, LAB67, LAB69, LAB15, CSG692, [id number], LAB20 ####Funeral Home Director: UNA ARCE ([id number])[facility] (HLAB)[address] Glucose [Mass/Vol] 108 mg/dL Normal 82-115 [facility] Comment on above: Performed By: #### L AB89, SON527, LAB67, LAB69, LAB15, KNW989, [id number], LAB20 ####Funeral Home Director: UNA ARCE ([id number])[facility] ([facility])[address] [place] [address] [place] Potassium [Moles/Vol] 4.5 mmol/L Normal 3.5-5.1 [facility] Comment on above: Result Comment: [facility] potassium values may be up to 0.5 mmol/L lower than serum values. Performed By: #### L AB89, QOH248, LAB67, LAB69, LAB15, WDH261, [id number], LAB20 ####Funeral Home Director: UNA ARCE ([id number])[facility] Sodium [Moles/Vol] 140 mmol/L Normal 136-145 [facility] Comment on above: Performed By: #### L AB89, FJS483, LAB67, LAB69, LAB15, YRL541, [id number], LAB20 ####Funeral Home Director: UNA ARCE ([id number])[facility] ([facility])[address] [place] [address] Urea nitrogen [Mass/Vol] 24 mg/dL High 9-23 [facility] Comment on above: Performed By: #### L AB89, ALK232, LAB67, LAB69, LAB15, OCR829, [id number], LAB20 ####Funeral Home Director: UNA ARCE ([id number])[facility] ([facility])[address] [place] [address] BLOOD TYPE AND SCREEN GELon 04-05-2025 ABO GROUPING A Normal [facility] Comment on above: Performed By: #### L AB276 ####Funeral Home Director: UNA ARCE ([id number])[facility] ([facility])[address] [place] [address] RH TYPE IN BLOOD Negative Normal [facility] Comment on above: Performed By: #### L AB276 ####Funeral Home Director: UNA ARCE ([id number])[facility] ([facility])[address] [place] [address] CBC WITH AUTO DIFFERENTIALon 04-05-2025 Erythrocyte distribution width (RBC) [Ratio] 19.9 % High 11.5-15.0 [facility] Comment on above: Performed By: #### L [id number], [id number], SMR783 ####Funeral Home Director: UNA ARCE ([id number])[facility] [place] ([facility])[address] Hematocrit (Bld) [Volume fraction] 20.7 % Low 40.0-52.0 [facility] Comment on above: Performed By: #### L IL6678, [id number], BHZ200 ####Funeral Home Director: UNA ARCE ([id number])[facility] ([facility])[address] [place] [address] Hemoglobin (Bld) [Mass/Vol] 5.5 g/dL Critically low 13.0-18.0 [facility] Comment on above: Performed By: #### L [id number], [id number], XBU311 ####Funeral Home Director: UNA ARCE ([id number])[facility] ([facility])[address] [place] [address] MCH (RBC) [Entitic mass] 19.4 pg Low 26.0-34.0 [facility] Comment on above: Performed By: #### L UG1007, [id number], YGQ907 ####Funeral Home Director: UNA ARCE ([id number])[facility] [place] ([facility])[address] [place] [address] MCHC 26.6 % Low 30.5-36.0 [facility] Comment on above: Performed By: #### L WG7226, [id number], BHY286 ####Funeral Home Director: UNA ARCE ([id number])[facility] ([facility])[address] MCV (RBC) [Entitic vol] 73.1 fL Low 77.0-99.0 [facility] Comment on above: Performed By: #### L IY1993, [id number], CPT899 ####Funeral Home Director: UNA ARCE ([id number])[facility] [place] ([facility])[address] Platelet mean volume (Bld) [Entitic vol] 9.4 fL Normal 9.0-12.7 [facility] Comment on above: Performed By: #### L WG7519, [id number], ODH021 ####Funeral Home Director: UNA ARCE ([id number])[facility] [place] ([facility])[address] Platelets (Bld) [#/Vol] 358 10*3/uL Normal 140-440 [facility] Comment on above: Performed By: #### L [id number], [id number], FRG601 ####Funeral Home Director: UNA ARCE ([id number])[facility] [place] ([facility])[address] RBC (Bld) [#/Vol] 2.83 10*6/uL Low 4.40-5.90 [facility] Comment on above: Performed By: #### L KY1667, [id number], ZWC264 ####Funeral Home Director: UNA ARCE ([id number])[facility] [place] ([facility])[address] [place] [address] WBC (Bld) [#/Vol] 10.0 10*3/uL Normal 3.6-10.7 [facility] Comment on above: Performed By: #### L FV6900, [id number], VTW272 ####Funeral Home Director: UNA ARCE ([id number])[facility] [place] ([facility])[address] ED Provider Noteon ED Provider Note Normal [facility] FERRITINon 04-05-2025 Ferritin [Mass/Vol] 19 ng/mL Low 22-275 [facility] Comment on above: Result Comment: YARELI R COMMENTS:Ferritin levels below 10 ng/mL have been reported as indicative of iron deficiency anemia. Performed By: #### L [id number], LAB18, LAB68 ####Funeral Home Director: UNA BERMUDEZLevonMELANIE ([id number])[facility] ([facility])[address] FOLATEon 04-05-2025 FOLATE RESULT 13.7 ng/mL Normal 7.0-31.4 [facility] Comment on above: Performed By: #### L AB89, YPG033, LAB67, LAB69, LAB15, FMX511, [id number], LAB20 ####Funeral Home Director: UNA STAUFFERMELANIE ([id number])[facility] ([facility])[address] HAPTOGLOBINon 04-05-2025 HAPTOGLOBIN 226 mg/dL Normal 50-270 [facility] Comment on above: Performed By: #### L AB89, SDH679, LAB67, LAB69, LAB15, SVS369, [id number], LAB20 ####Funeral Home Director: UNA STAUFFERMELANIE ([id number])[facility] ([facility])[address] [place] [address] HEPATIC FUNCTION PANELon Albumin [Mass/Vol] 2.7 g/dL Low 3.4-4.8 [facility] Comment on above: Performed By: #### L AB89, FEF864, LAB67, LAB69, LAB15, YFF776, [id number], LAB20 ####Funeral Home Director: UNA ARCE ([id number])[facility] ([facility])[address] ALP [Catalytic activity/Vol] 65 U/L Normal 40-150 [facility] Comment on above: Performed By: #### L AB89, WYX242, LAB67, LAB69, LAB15, FLK874, [id number], LAB20 ####Funeral Home Director: UNA ARCE ([id number])[facility] ([facility])[address] ALT [Catalytic activity/Vol] 7 U/L Normal <40 [facility] Comment on above: Performed By: #### L AB89, ILU736, LAB67, LAB69, LAB15, PJQ398, [id number], LAB20 ####Funeral Home Director: UNA STAUFFERMELANIE ([id number])[facility] ([facility])[address] [place] [address] AST [Catalytic activity/Vol] 22 U/L Normal <34 [facility] Comment on above: Performed By: #### L AB89, PXW677, LAB67, LAB69, LAB15, LCA097, [id number], LAB20 ####Funeral Home Director: UNA BERMUDEZPEDRO ([id number])[facility] ([facility])[address] [place] [address] Bilirubin [Mass/Vol] 0.5 mg/dL Normal <1.2 [facility] Comment on above: Performed By: #### L AB89, CHD882, LAB67, LAB69, LAB15, CPS202, [id number], LAB20 ####Funeral Home Director: UNA BERMUDEZPEDRO ([id number])[facility] ([facility])[address] [place] [address] Bilirubin.indirect [Mass/Vol] 0.2 mg/dL Normal <0.5 [facility] Comment on above: Performed By: #### L AB89, WUB798, LAB67, LAB69, LAB15, OTE799, [id number], LAB20 ####Funeral Home Director: UNA YAZMIN ([id number])[facility] ([facility])[address] [place] [address] Protein [Mass/Vol] 6.4 g/dL Normal 6.4-8.3 [facility] Comment on above: Result Comment: Seru m protein values are higher than plasma values. Samples from recumbent persons are lower by up to 0.5 g/dL as compared to ambulatory persons. After 60 years values are lower by up to 0.2 g/dL. Performed By: #### L AB89, ZUX702, LAB67, LAB69, LAB15, VLU825, [id number], LAB20 ####Funeral Home Director: UNA STAUFFERMELANIE ([id number])[facility] ([facility])[address] HIGH SENSITIVITY TROPONIN, S ERIAL BASELINEon 04-05-2025 TROPONIN HS SERIAL BASELINE 29 ng/L Normal <=35 [facility] Comment on above: Result Comment: In i ndividuals presenting with symptoms > 2h, a baseline troponin <= 5 ng/L suggests acutecardiac injury is unlikely and further serial testing is generally not indicated. Performed By: #### L [id number] ####Funeral Home Director: UNA ARCE ([id number])[facility] TROPONIN HS SERIAL BASELINE 30 ng/L Normal <=35 [facility] Comment on above: Result Comment: In i ndividuals presenting with symptoms > 2h, a baseline troponin <= 5 ng/L suggests acutecardiac injury is unlikely and further serial testing is generally not indicated. Performed By: #### L AB89, BWQ036, LAB67, LAB69, LAB15, QKJ938, [id number], LAB20 ####Funeral Home Director: UNA ARCE ([id number])[facility] HIGH SENSITIVITY TROPONIN, S ERIAL, SECOND TESTon 04-05-2025 2H TROPONIN HS (SERIAL 2ND TROPONIN) 28 ng/L Normal <=35 [facility] Comment on above: Result Comment: 2h [...] injury is unlikely. Performed By: #### L [id number], LAB18, LAB68 ####Funeral Home Director: UNA ARCE ([id number])[facility] LIPID PANELon 04-05-2025 Cholesterol [Mass/Vol] 89 mg/dL Normal <200 [facility] Comment on above: Performed By: #### L [id number], LAB18, LAB68 ####Funeral Home Director: UNA ARCE ([id number])[facility] ([facility])[address] Cholesterol in HDL [Mass/Vol] 29 mg/dL Low >=60 [facility] Comment on above: Performed By: #### Gilbert [id number], LAB18, LAB68 ####Funeral Home Director: UNA ARCE ([id number])[facility] ([facility])[address] Cholesterol.total/Choles terol in HDL [Mass ratio] 3 {ratio} Normal [facility] Comment on above: Result Comment: Ref Range:< 3 Low Risk for CHD3-6 Mod Risk for CHD> 6 High Risk for CHD Performed By: #### Gilbert [id number], LAB18, LAB68 ####Funeral Home Director: UNA ARCE ([id number])[facility] ([facility])[address] LOW DENSITY LIPOPROTEIN 48 mg/dL Normal 0-<100 [facility] Comment on above: Performed By: #### Gilbert [id number], LAB18, LAB68 ####Funeral Home Director: UNA ARCE ([id number])[facility] ([facility])[address] [place] [address] [place] NON-HDL CHOLESTEROL, CALCULATED 60 Normal <130 [facility] Comment on above: Performed By: #### Gilbert [id number], LAB18, LAB68 ####Funeral Home Director: UNA ARCE ([id number])[facility] ([facility])[address] [place] [address] [place] Triglyceride [Mass/Vol] 60 mg/dL Normal <150 S [facility] Comment on above: Performed By: #### L [id number], LAB18, LAB68 ####Funeral Home Director: UNA ARCE ([id number])[facility] ([facility])[address] [place] [address] [place] VERY LOW DENSITY LIPOPROTEIN, CALCULATED 12 mg/dL Normal <=30 [facility] Comment on above: Performed By: #### L [id number], LAB18, LAB68 ####Funeral Home Director: UNA ARCE ([id number])[facility] [place] ([facility])[address] MANUAL DIFFERENTIAL (CELLAVI BANDAR)on 04-05-2025 ANISOCYTOSIS PRESENCE IN BLOOD BY LIGHT MICROSCOPY Moderate Abnormal (none) [facility] Comment on above: Performed By: #### L YB1464, [id number], DZZ459 ####Funeral Home Director: UNA ARCE ([id number])[facility] [place] ([facility])[address] BAND NEUTROPHILS TOTAL PER COUNTED LEUKOCYTES BY MANUAL COUNT Normal [facility] Comment on above: Performed By: #### L [id number], [id number], NRS040 ####Funeral Home Director: UNA ARCE ([id number])[facility] [place] ([facility])[address] [place] [address] [place] BASOPHILS TOTAL PER COUNTED LEUKOCYTES BY MANUAL COUNT Normal [facility] Comment on above: Performed By: #### L [id number], [id number], ALE900 ####Funeral Home Director: UNA ARCE ([id number])[facility] [place] ([facility])[address] [place] [address] [place] BLASTS TOTAL PER COUNTED LEUKOCYTES BY MANUAL COUNT Normal [facility] Comment on above: Performed By: #### L DE1009, [id number], MVS440 ####Funeral Home Director: UNA ARCE ([id number])[facility] [place] ([facility])[address] [place] [address] [place] EOSINOPHILS TOTAL PER COUNTED LEUKOCYTES BY MANUAL COUNT [facility] Comment on above: Performed By: #### L QV0396, [id number], [id number] ####Funeral Home Director: UNA ARCE ([id number])[facility] [place] ([facility])[address] [place] [address] [place] HYPOCHROMIA (PRESENCE) IN BLOOD BY LIGHT MICROSCOPY Moderate Abnormal (none) [facility] Comment on above: Performed By: #### L [id number], [id number], SNB026 ####Funeral Home Director: UNA ARCE ([id number])[facility] ([facility])[address] LYMPHOCYTES (10*3/UL) IN BLOOD-CELLAVISION 1.4 10*3/uL Normal 1.0-4.3 [facility] Comment on above: Performed By: #### L [id number], [id number], QRU281 ####Funeral Home Director: UNA ARCE ([id number])[facility] [place] ([facility])[address] LYMPHOCYTES TOTAL PER COUNTED LEUKOCYTES BY MANUAL COUNT 15 Normal [facility] Comment on above: Performed By: #### L [id number], [id number], XOG008 ####Funeral Home Director: UNA ARCE ([id number])[facility] ([facility])[address] [place] [address] [place] LYMPHOCYTES/100 LEUKOCYTES IN BLOOD-CELLAVISION 14 % Low 15-45 [facility] Comment on above: Performed By: #### L [id number], [id number], MYB331 ####Funeral Home Director: UNA ARCE ([id number])[facility] ([facility])[address] [place] [address] [place] METAMYELOCYTES TOTAL PER COUNTED LEUKOCYTES BY MANUAL COUNT Normal [facility] Comment on above: Performed By: #### L FY7785, [id number], SME420 ####Funeral Home Director: UNA ARCE ([id number])[facility] ([facility])[address] [place] [address] [place] MICROCYTES (PRESENCE) IN BLOOD BY LIGHT MICROSCOPY Slight Abnormal (none) [facility] Comment on above: Performed By: #### L [id number], [id number], [id number] ####Funeral Home Director: UNA ACRE ([id number])[facility] [place] ([facility])[address] [place] [address] [place] MONOCYTES (10*3/UL) IN BLOOD-CELLAVISION 1.3 10*3/uL High 0.0-0.9 [facility] Comment on above: Performed By: #### L [id number], [id number], [id number] ####Funeral Home Director: UNA STAUFFERMELANIE ([id number])[facility] [place] ([facility])[address] [place] [address] [place] MONOCYTES TOTAL PER COUNTED LEUKOCYTES BY MANUAL COUNT 14 Normal [facility] Comment on above: Performed By: #### L [id number], [id number], [id number] ####Funeral Home Director: UNA STAUFFERMELANIE ([id number])[facility] [place] ([facility])[address] [place] [address] [place] MONOCYTES/100 LEUKOCYTES IN BLOOD-LUCIANA 13 % Normal 5-13 [facility] Comment on above: Performed By: #### L [id number], [id number], [id number] ####Funeral Home Director: UNA STAUFFERMELANIE ([id number])[facility] [place] ([facility])[address] [place] [address] [place] MYELOCYTES COUNTED BY MANUAL COUNT [facility] Comment on above: Performed By: #### L [id number], [id number], [id number] ####Funeral Home Director: UNA STAUFFERMELANIE ([phone])[facility] [place] ([facility])[address] [place] [address] [place] NEUTROPHILS TOTAL PER COUNTED LEUKOCYTES BY MANUAL COUNT 76 [facility] Comment on above: Performed By: #### L [id number], [id number], [id number] ####Funeral Home Director: UNA BERMUDEZPEDRO ([id number])[facility] [place] ([facility])[address] [place] [address] [place] NUCLEATED ERYTHROCYTES/100 LEUKOCTES IN BLOOD-CELLAVISION 1 % Normal 0-2 [facility] Comment on above: Performed By: #### L [id number], [id number], [id number] ####Funeral Home Director: UNA MOHRCER ([id number])[facility] [place] ([facility])[address] [place] [address] [place] OVALOCYTES PRESENCE IN BLOOD BY LIGHT MICROSCOPY Slight Abnormal (none) [facility] Comment on above: Performed By: #### L [id number], [id number], [id number] ####Funeral Home Director: UNA STAUFFERMELANIE ([id number])[facility] ([facility])[address] [place] [address] [place] POIKILOCYTOSIS (PRESENCE) IN BLOOD BY LIGHT MICROSCOPY Moderate Abnormal (none) [facility] Comment on above: Performed By: #### L [id number], [id number], [id number] ####Funeral Home Director: UNA BERMUDEZPEDRO ([id number])[facility] [place] [address] [place] PROMYELOCYTES TOTAL PER COUNTED LEUKOCYTES BY MANUAL COUNT Normal [facility] Comment on above: Performed By: #### L [id number], [id number], [id number] ####Funeral Home Director: UNA ARCE ([id number])[facility] ([facility])[address] [place] [address] [place] RBC MORPHOLOGY IN BLOOD abnormal Normal S [facility] Comment on above: Performed By: #### L [id number], [id number], [id number] ####Funeral Home Director: UNA ARCE ([id number])[facility] [place] ([facility])[address] [place] [address] [place] SEGMENTED NEUTROPHILS (10*3/UL) IN BLOOD-CELLAVISION 7.2 10*3/uL Normal 1.8-7.5 [facility] Comment on above: Performed By: #### L [id number], [id number], [id number] ####Funeral Home Director: UNA ARCE ([id number])[facility] [place] ([facility])[address] [place] [address] [place] SEGMENTED NEUTROPHILS/100 LEUKOCYTES-CE 72 % Normal 38-82 [facility] Comment on above: Performed By: #### L [id number], [id number], [id number] ####Funeral Home Director: UNA ARCE ([id number])[facility] (SB[facility])[address] STOMATOCYTES IN BLOOD BY LIGHT MICROSCOPY Moderate Abnormal (none) [facility] Comment on above: Performed By: #### L [id number], [id number], [id number] ####Funeral Home Director: UNA ARCE ([id number])[facility] ([facility])[address] TARGET CELLS IN BLOOD BY LIGHT MICROSCOPY Slight Abnormal (none) [facility] Comment on above: Performed By: #### L [id number], [id number], [id number] ####Funeral Home Director: UNA ARCE ([id number])[facility] (SB[facility])[address] [place] [address] UNCLASSIFIED CELLS TOTAL PER COUNTED LEUKOCYTES BY MANUAL COUNT Normal [facility] Comment on above: Performed By: #### L [id number], [id number], [id number] ####Funeral Home Director: UNA ARCE ([id number])[facility] ([facility])[address] [place] [address] VARIANT LYMPHOCYTES TOTAL PER COUNTED LEUKOCYTES BY MANUAL COUNT Normal [facility] Comment on above: Performed By: #### L [id number], [id number], [id number] ####Funeral Home Director: UNA ARCE ([id number])[facility] ([facility])[address] NT PRO BNPon 04-05-2025 Natriuretic peptide B (Bld) [Mass/Vol] 8438 pg/mL High <450 [facility] Comment on above: Performed By: #### L [id number], [id number], LAB67, LAB69, LAB15, [id number], [id number], [id number] ####Funeral Home Director: UNA ARCE ([id number])[facility] ([facility])[address] RETICULOCYTESon 04-05-2025 Reticulocytes/100 RBC (Bld) 2.31 % Normal [facility] Comment on above: Result Comment: Newb orn < 5%Adults 0.4 - 2.0% Performed By: #### L [id number], [id number], [id number] ####Funeral Home Director: UNA ARCE ([id number])[facility] ([facility])[address] THYROID STIMULATING HORMONEo n 04-05-2025 THYROID STIMULATING HORMONE 10.19 uIU/mL High 0.35-4.94 [facility] Comment on above: Performed By: #### L AB89, [id number], LAB67, LAB69, LAB15, [id number], [id number], [id number] ####Funeral Home Director: UNA ARCE ([id number])[facility] ([facility])[address] VITAMIN B12on 04-05-2025 Cobalamin (Vitamin B12) [Mass/Vol] 817 pg/mL High 213-816 [facility] Comment on above: Performed By: #### L AB89, [id number], LAB67, LAB69, LAB15, [id number], [id number], LAB20 ####Funeral Home Director: UNA ARCE ([id number])[facility] ([facility])[address] [place] [address] Vital Signs Date Time Vital Sign Value Performing Clinician Faci lity 06-22-2025 02:11-0400 Diastolic blood pressure 57 mm[Hg] Flowdock DO Work Phone: [facility] 06-22-2025 02:11-0400 Heart rate 54 /min Flowdock DO Work Phone: [facility] 06-22-2025 02:11-0400 Respiratory rate 18 /min Flowdock DO [facility] 06-22-2025 02:11-0400 SaO2% (BldA) [Mass fraction] 97 % Sagar Gilliam DO Work Phone: [facility] 06-22-2025 02:11-0400 Systolic blood pressure 105 mm[Hg] Sagar Gilliam DO Work Phone: [facility] 06-22-2025 00:31-0400 Body temperature 98.2 [degF] Sagar Gilliam DO Work Phone: [facility] 06-17-2025 10:47-0400 SaO2% (BldA) [Mass fraction] 95 % Eber Hess MD Work Phone: [facility] 06-17-2025 10:27-0400 Body height 174 cm Eber Hess MD Work Phone: [facility] 06-17-2025 10:27-0400 Body mass index (BMI) [Ratio] 27.3 kg/m2 Eber Hess MD Work Phone: [facility] 06-17-2025 10:27-0400 Body weight 82.64 kg Eber Hess MD Work Phone: [facility] 06-17-2025 10:27-0400 Diastolic blood pressure 58 mm[Hg] Eber Hess MD Work Phone: [facility] 06-17-2025 10:27-0400 Heart rate 70 /min Eber Hess MD Work Phone: [facility] 06-17-2025 10:27-0400 Systolic blood pressure 110 mm[Hg] Eber Hess MD Work Phone: [facility] 05-03-2025 10:13-0400 Body height 174 cm Alejandro Queen APR N - [employer] Work Phone: [facility] 05-03-2025 10:13-0400 Body mass index (BMI) [Ratio] 28.09 kg/m2 Alejandro Queen [employer] Work Phone: [facility] 05-03-2025 10:13-0400 Body weight 85.05 kg Alejandro Queen APR N - [employer] Work Phone: [facility] 05-03-2025 10:13-0400 Diastolic blood pressure 62 mm[Hg] Alejandro Queen [employer] Work Phone: [facility] 05-03-2025 10:13-0400 Heart rate 66 /min Alejandro Queen APR N - [employer] Work Phone: [facility] 05-03-2025 10:13-0400 Systolic blood pressure 106 mm[Hg] Alejandro Queen [employer] Work Phone: [facility] 04-17-2025 08:40-0400 Diastolic blood pressure 50 mm[Hg] Rowena Eliasffey DO Work Phone: [facility] 04-17-2025 08:40-0400 Heart rate 62 /min Rowena Eliasffey DO Work Phone: [facility] 04-17-2025 08:40-0400 Respiratory rate 17 /min Rowena Eliasffey DO Work Phone: [facility] 04-17-2025 08:40-0400 SaO2% (BldA) [Mass fraction] 96 % Rowena Skiffey DO Work Phone: [facility] 04-17-2025 08:40-0400 Systolic blood pressure 104 mm[Hg] Rowena Skiffey DO Work Phone: [facility] 04-17-2025 05:00-0400 Body mass index (BMI) [Ratio] 31.14 kg/m2 Rowena Skiffey DO Work Phone: [facility] 04-17-2025 05:00-0400 Body weight 92.9 kg Rowena Skiffey DO Work Phone: [facility] 04-17-2025 01:47-0400 Body temperature 97.2 [degF] Rowena Skiffey DO Work Phone: [facility] 04-16-2025 16:41-0400 Body height 172.7 cm Rowena Eliasffey DO Work Phone: [facility] 04-13-2025 04:37-0400 SaO2% (BldA) [Mass fraction] 95.1 % Rowena Aguilar DO Work Phone: [facility] 04-08-2025 21:01-0400 SaO2% (BldA) [Mass fraction] 97 % Rowena Aguilar DO Work Phone: [facility] 04-08-2025 17:02-0400 SaO2% (BldA) [Mass fraction] 96.1 % Rowena Aguilar DO Work Phone: [facility] Encounters Encounter Date Encounter Type Care Provider Facility Start: 07-05-2025 [facility] :[facility] Start: 06-28-2025 [facility] :[facility] Start: 06-24-2025 End: 06-24-2025 Documentation procedure Yamilka Amie [employer] Work Phone: [facility] [place] Start: 06-24-2025 End: 06-25-2025 Telephone encounter Eber Hess MD Work Phone: [facility] [employer] Comment on above: Release of Informati on (BMP, vitals, and medication notes ) Start: 06-24-2025 [facility] :[facility] Start: 06-21-2025 End: 06-22-2025 Emergency department patient visit Sagar Gilliam DO Work Phone: [facility] ED Comment on above: Anemia due to chroni c kidney disease, unspecified CKD stage (Primary Dx) Start: 06-21-2025 [facility] :[facility] Start: 06-17-2025 End: 06-17-2025 ambulatory [facility] Start: 06-17-2025 End: 06-17-2025 ambulatory [facility] Start: 06-17-2025 End: 06-17-2025 Office outpatient visit 40 minutes Eber Hess MD Work Phone: [facility] [email or web address] Comment on above: Chronic systolic hea rt failure (HCC) (Primary Dx) Start: 05-06-2025 End: 05-12-2025 Home visit new pt unstabl/signif new prob 75 min Yamilka Holloway [employer] Work Phone: [facility] Lee Comment on above: Palliative care enco unter (Primary Dx); Pleural effusion; Acute on chronic heart failure, unspecified heart failure type (HCC); Debility Start: 05-03-2025 End: 05-03-2025 ambulatory ALEJANDRO BocandyDHIRAJ [facility] Start: 05-03-2025 End: 05-03-2025 Office outpatient visit 25 minutes Alejandro Queen [employer] Work Phone: [facility] Cardiology - [place] Comment on above: Chronic systolic hea rt failure (HCC) (Primary Dx); 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; Pleural effusion; Acute kidney injury superimposed on chronic kidney disease (HCC) (HCC); 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 chronic kidney disease (HCC); PAC (premature atrial contraction); Abnormal CAT scan Start: 04-19-2025 End: 04-19-2025 Orders Only Katie Engle RN [facility] - [place] Comment on above: Acute congestive hea rt failure, unspecified heart failure type (HCC) (Primary Dx) Start: 04-05-2025 End: 04-17-2025 Evaluation and management of inpatient Rowena Aguilar DO Work Phone: [facility] Cardiac Progressive Care Unit PCU 2E Start: 11-07-2020 End: 11-07-2020 Discharged [facility]-Immunizations Procedures Date Procedure Procedure Detail Performing Clinician Start: 06-21-2025 Compatibility each u nit electronic Alannah D'Lakhwinder PA-C Work Phone: Start: 06-21-2025 End: 06-22-2025 TRANSFUSE RED BLOOD CELLS Alannah D'Ami co PA-C Work Phone: Start: 06-21-2025 Ecg routine ecg w/le ast 12 lds trcg only w/o i&r Sagar Gilliam DO Work Phone: Start: 06-21-2025 Antibody screen EBER FERNANDEZALEXIS Comment on above: Performed By: #### L [id number] ####Funeral Home Director: UNA NAVARRO ([id number])[facility] ([facility])[address] Start: 06-21-2025 Basic metabolic pane l [...] Start: 04-17-2025 Comprehensive metabo lic panel Precious Torres MD Work Phone: Start: 04-17-2025 Manual Differential panel - Blood Precious Torres MD Work Phone: Start: 04-16-2025 Comprehensive metabo lic panel Precious Torres MD Work Phone: Start: 04-16-2025 Manual Differential panel - Blood Precious Torres MD Work Phone: Start: 04-15-2025 OXYGEN THERAPY Precious dawn MD Work Phone: Start: 04-15-2025 BEDSIDE SPIROMETRY Lizeth Farmer [employer] Work Phone: Start: 04-15-2025 Blood occult peroxid ase actv qual feces 1-3 spec Albaro Elizabeth MD Work Phone: Start: 04-15-2025 Radiologic exam ches t single view Yesi Farmer [employer] Work Phone: Start: 04-15-2025 Comprehensive metabo lic panel Precious Torres MD Work Phone: Start: 04-15-2025 Manual Differential panel - Blood Precious Torres MD Work Phone: Start: 04-14-2025 OXYGEN THERAPY Precious dawn MD Work Phone: Start: 04-14-2025 Thoracentesis needle /cath pleura w/imaging Yesi Farmer [employer] - [facility] Work Phone: Start: 04-14-2025 Comprehensive metabo lic panel Precious Torres MD Work Phone: Start: 04-14-2025 Manual Differential panel - Blood Precious Torres MD Work Phone: Start: 04-13-2025 OXYGEN THERAPY Precious dawn MD Work Phone: Start: 04-13-2025 Radiologic exam ches t single view Marian Casarez [employer] - [facility] Work Phone: Start: 04-13-2025 Ecg routine ecg w/le ast 12 lds trcg only w/o i&r Marian Casarez [employer] - [facility] Work Phone: Start: 04-13-2025 Blood gases any comb ination ph pco2 po2 co2 hco3 Yesi Farmer [employer] - [facility] Work Phone: Start: 04-13-2025 Comprehensive metabo lic panel Precious Torres MD Work Phone: Start: 04-13-2025 Manual Differential panel - Blood Precious Torres MD Work Phone: Start: 04-12-2025 OXYGEN THERAPY Precious dawn MD Work Phone: Start: 04-12-2025 OXYGEN THERAPY Precious dawn MD Work Phone: Start: 04-12-2025 Comprehensive metabo lic panel Precious Torres MD Work Phone: Start: 04-12-2025 Manual Differential panel - Blood Precious Torres MD Work Phone: Start: 04-11-2025 OXYGEN THERAPY Precious dawn MD Work Phone: Start: 04-11-2025 Radiologic exam ches t single view Alejandro Felix Queen [employer] Work Phone: Start: 04-11-2025 OXYGEN THERAPY Precious dawn MD Work Phone: Start: 04-11-2025 Comprehensive metabo lic panel Precious Torres MD Work Phone: Start: 04-11-2025 Manual Differential panel - Blood Precious Torres MD Work Phone: Start: 04-10-2025 OXYGEN THERAPY Precoius dawn MD Work Phone: Start: 04-10-2025 OXYGEN THERAPY Precious dawn MD Work Phone: Start: 04-10-2025 Comprehensive metabo lic panel Precious Torres MD Work Phone: Start: 04-10-2025 Manual Differential panel - Blood Precious Torres MD Work Phone: Start: 04-09-2025 OXYGEN THERAPY Precious dawn MD Work Phone: Start: 04-09-2025 AEROBIC AND ANAEROBI C CULTURE WITH STAIN Precious Torres MD Work Phone: Start: 04-09-2025 BODY FLUID CELL COUN T WITH REFLEX DIFF Precious Torres MD Work Phone: Start: 04-09-2025 BODY FLUID DIFFERENTIAL Precious Torres MD Work Phone: Start: 04-09-2025 Culture bacterial an y source anaerobic iso&id Precious Torres MD Work Phone: Start: 04-09-2025 Cytp slctv cell enha ncement interpj xcpt c/v Precious Torres MD Work Phone: Start: 04-09-2025 Ph body fluid not el sewhere specified Precious Torres MD Work Phone: Start: 04-09-2025 Radiologic exam ches t single view Precious Torres MD Work Phone: Start: 04-09-2025 Thoracentesis needle /cath pleura w/imaging Precious Torres MD Work Phone: Start: 04-09-2025 Lactate dehydrogenase ldh Precious Torres MD Work Phone: Start: 04-09-2025 Radiologic exam ches t single view Precious Torres MD Work Phone: Start: 04-09-2025 AEROBIC AND ANAEROBI C CULTURE WITH STAIN Precious Torres MD Work Phone: Start: 04-09-2025 BODY FLUID CELL COUN T WITH REFLEX DIFF Precious Torres MD Work Phone: Start: 04-09-2025 BODY FLUID DIFFERENTIAL Precious Torres MD Work Phone: Start: 04-09-2025 Culture bacterial an y source anaerobic iso&id Precious Torres MD Work Phone: Start: 04-09-2025 Cytp slctv cell enha ncement interpj xcpt c/v Precious Torres MD Work Phone: Start: 04-09-2025 Ph body fluid not el sewhere specified Precious Torres MD Work Phone: Start: 04-09-2025 Thoracentesis needle /cath pleura w/imaging Precious Torres MD Work Phone: Start: 04-09-2025 OXYGEN THERAPY Precious dawn MD Work Phone: Start: 04-09-2025 Radiologic exam ches t single view Precious Torres MD Work Phone: Start: 04-09-2025 Comprehensive metabo lic panel Precious Torres MD Work Phone: Start: 04-09-2025 Manual Differential panel - Blood Precious Torres MD Work Phone: Start: 04-08-2025 Blood gases any comb ination ph pco2 po2 co2 hco3 Precious Torres MD Work Phone: Start: 04-08-2025 OXYGEN THERAPY [...] Start: 04-08-2025 Comprehensive metabo lic panel Albaro Elizabeth MD Work Phone: Start: 04-08-2025 Manual Differential panel - Blood Albaro Elizabeth MD Work Phone: Start: 04-07-2025 OXYGEN THERAPY Precious dawn MD Work Phone: Start: 04-07-2025 OXYGEN THERAPY Precious dawn MD Work Phone: Start: 04-07-2025 Comprehensive metabo lic panel Albaro Elizabeth MD Work Phone: Start: 04-07-2025 Manual Differential panel - Blood Albaro Elizabeth MD Work Phone: Start: 04-06-2025 OXYGEN THERAPY Precious dawn MD Work Phone: Start: 04-06-2025 TTE w or wo fol wcon,Doppler Albaro Elizabeth MD Work Phone: Start: 04-06-2025 Ct abdomen & pelvis w/o contrast material Albaro Elizabeth MD Work Phone: Start: 04-06-2025 Ct thorax w/o contra st material Albaro Elizabeth MD Work Phone: Start: 04-06-2025 Comprehensive metabo lic panel Albaro Elizabeth MD Work Phone: Start: 04-06-2025 Manual Differential panel - Blood Albaro Elizabeth MD Work Phone: Start: 04-05-2025 Compatibility each u nit electronic Rowena Aguilar DO Work Phone: Start: 04-05-2025 End: 04-06-2025 TRANSFUSE RED BLOOD CELLS Albaro Elizabeth M D Work Phone: Start: 04-05-2025 Assay of troponin quantitative Albaro Elizabeth MD Work Phone: Start: 04-05-2025 Assay of ferritin Saeid Elizabeth MD Work Phone: Start: 04-05-2025 Lipid panel Albaro king MD Work Phone: Start: 04-05-2025 OXYGEN THERAPY Precious dawn MD Work Phone: Start: 04-05-2025 End: 04-05-2025 TRANSFUSE RED BLOOD CELLS Albaro Elizabeth Yisel D Work Phone: Start: 04-05-2025 Antibody screen EBER SAMALEXIS Comment on above: Performed By: #### L [id number] ####Funeral Home Director: UNA NAVARRO ([id number])[facility] ([facility])[address] [place] [address] Start: 04-05-2025 ABO and Rh group [Ty pe] in Blood by Confirmatory method Rowena Aguilar DO Work Phone: Start: 04-05-2025 Blood typing serologic abo Rowena Aguilar DO Work Phone: Start: 04-05-2025 Radiologic exam ches t single view Rowena Peña Curtlobitotanya DO Work Phone: Start: 04-05-2025 Comprehensive metabo lic panel Rowena Lintontanya DO Work Phone: Start: 04-05-2025 Manual Differential panel - Blood Rowena Lintontanya DO Work Phone: Start: 04-05-2025 Ecg routine ecg w/le ast 12 lds i&r only Rowena Aguilar DO Work Phone: Start: 04-05-2025 OXYGEN THERAPY Precious dawn MD Work Phone: Start: 04-05-2025 Lipid 1996 panel - S alexandrea or Plasma Katie Engle RN Plan of Treatment Date Care Activity Detail Author Start: 04-05-2030 Lipid panel [facility] Start: 06-21-2026 Creatinine measurement Creatinine Level [facility] Start: 06-21-2026 Potassium measurement Potassium Level [facility] Start: 06-17-2026 Creatinine measurement Creatinine Level [facility] Start: 06-17-2026 Potassium measurement Potassium Level [facility] Start: 04-17-2026 Creatinine measurement [facility] Start: 04-17-2026 Potassium measurement [facility] Start: 04-06-2026 Echocardiography Echocardiogram [facility] Start: 04-06-2026 [facility] Start: 11-03-2025 Depression Monitoring Depression Monitoring [facility] Start: 06-17-2025 End: 06-17-2025 Patient encounter procedure 06/17/2025 10:20 AM EDT Office Visit [facility] Cardiology [address] [place] [address] Eber Hess MD [address] [place] [address] [address] [place] [address] [facility]iology - [place] Start: 05-18-2025 End: 05-18-2025 ambulatory [facility] Pulmonary and Sleep [facility] Start: 05-18-2025 End: 05-18-2025 Patient encounter procedure 05/18/2025 9:15 AM EDT Office Visit [facility] Pulmonary and Sleep [facility] [address] [place] [id number] Nelson Garcia MD [address] [place] [id number] [facility] Pulmonary and Sleep Medicine [facility] Start: 05-10-2025 COVID-19 Vaccine ( season) COVID-19 Vaccine ( season) [facility] Start: 05-10-2025 Influenza vaccination Influenza Vaccine (#1) [facility] Start: 05-10-2025 [facility] Start: 04-22-2025 End: 04-22-2025 ambulatory [facility] - [facility] Start: 04-22-2025 End: 04-22-2025 Patient encounter procedure 04/22/2025 10:00 AM EDT Office Visit [facility] Cardiology [place] [address] [facility] [address] [place] [address] Marian Casarez, [employer] [address] [facility] [address] [place] [address] [facility] - [facility] Start: 05-10-2024 COVID-19 Vaccine ( season) COVID-19 Vaccine ( season) [facility] Start: 05-10-2024 [facility] Start: 2011 RSV Immunization for Adults (1 - 1-dose 75+ series) RSV Immunization for Adults (1 - 1-dose 75+ series) [facility] Start: 2011 [facility] Start: 1986 Zoster Vaccines (1 of 2) Zoster Vaccines (1 of 2) [facility] Start: 1986 [facility] Start: 1955 DTaP/Tdap/Td Vaccines (1 - Tdap) DTaP/Tdap/Td Vaccines (1 - Tdap) [facility] Start: 1955 Pneumococcal Vaccine: 50+ Years (1 of 2 - PCV) Pneumococcal Vaccine: 50+ Years (1 of 2 - PCV) [facility] Start: 1955 [facility] Start: 1948 Depression Monitoring Depression Monitoring [facility] Start: 1948 [facility] Start: 1936 Medicare Annual Wellness (AWV) Medicare Annual Wellness (AWV) [facility] Start: 1936 [facility] Bedside spirometry [facility] Work Phone: End: 04-05-2025 Hemoglobin [Mass/volume] in Blood [facility] Work Phone: End: 04-05-2025 Hemoglobin.gastrointestina l.lower [Presence] in Stool by Immunoassay --1st specimen [facility] Work Phone: Immunizations Immunization Date Immunization Notes Care Provider Fa ravi 12-05-2020 Covid (Moderna) [facility] Work Phone: 11-07-2020 Covid (Modern) [facility] Work Phone: 06-30-2020 influenza virus vaccine, unspecified formulation Katie Engle RN [facility] Payers Date Payer Category Payer Self-pay [id number] 2017 [employer] Manuel berman Managed Care - [facility] [place] [address] [id number] 2017 Medicare supplementa l policy (as second payer) [id number] 2017 Unknown [id number] 2001 Medicare [id number] 2001 Medicare [id number] Unknown [id number] Unknown [id number] Unknown [id number] Unknown [id number] Social History Date Type Detail Facility Tobacco smoking stat us TXIS Unknown if ever smoked [facility] Work Phone: Start: 1935 Sex Assigned At Male [facility] Work Phone: Start: 04-08-2025 End: 05-03-2025 Tobacco smoking status NHIS Never smoked tobacco [facility] Start: 04-08-2025 End: 05-03-2025 History of Social function [facility] Start: 04-08-2025 End: 05-03-2025 [facility] [employer] [facility] Has the Gift Card Impressions, or [employer] threatened to shut off services in your home in past 12Mo No [facility] How often to you hav e a drink containing alcohol? Never [facility] How many standard drinks containing alcohol do you have on a typical day? [facility] (I/We) worried wherosa er (my/our) food would run out before (I/we) got money to buy more. Never true [facility] Start: 1935 Sex assigned at [facility] Start: 04-05-2025 Sex Male (finding) [facility] Start: 05-03-2025 End: 06-15-2025 Tobacco use and exposure Smokeless tobacco non-user [facility] Start: 06-15-2025 Tobacco smoking stat [facility] Ex-smoker [facility] History of tobacco use Current smoker [facility] History of tobacco use Cigarette Smoker [facility] Start: 06-17-2025 Alcoholic beverage intake Ex-drinker (finding) [facility] Goals Date Patient Goal Desired Activity /State Functional Status Date Assessment Result Facility 05-03-2025 Patient Health Questionnaire 2 item (PHQ- 2) [Reported] [facility] Clinical Notes 04-05-2025 to 06-24-2025 [facility] [...] return call to the palliative group at [phone] documented in this encounter [facility] 06-24-2025 Telephone encounter Note Per Dr Hess: Would stop aldactone all together due to Cr 1.8 and low normal BP. Also stop hydralazine and see how bp is I called and spoke to the Kylah madden at [facility] relaying note from Dr Hess. She verbalized [...] give him an additional torsemide today. [facility] 06-24-[address] Hess: Would stop aldactone all together due to Cr 1.8 and low normal BP. Also stop hydralazine and see how bp is I called and spoke to the Kylah madden at [facility] relaying note from Dr Hess. She verbalized [...] was 2.05 on 06/17/25. FYI: Went to [facility] ER on 06/21/25 for blood transfusion as HGB at facility was 6.9 when they checked it 06/21/25. Labs from [facility] Today: 06/24/25 BMP, blood pressure, pulse summary, and medication notes faxed from [facility]. Records scanned to Media. documented in this encounter [facility] 06-24-2025 Telephone encounter Note Images from [...] was 2.05 on 06/17/25. FYI: Went to [facility] ER on 06/21/25 for blood transfusion as HGB at facility was 6.9 when they checked it 06/21/25. Labs from [facility] Today: [facility] 06-24-2025 Telephone encounter Note 06/24/25 BMP, blood pressure, pulse summary, and medication notes faxed from [facility]. Records scanned to Media. [facility] 06-21-2025 Emergency department Note This RN at bedside for first 15 minutes of blood transfusion. Pt tolerating transfusion. VS updated in system. [facility] 06-21-2025 Emergency department Note This RN at bedside for first 15 minutes of blood transfusion. Pt tolerating transfusion. VS updated in system. Emergency Department Encounter [facility] ED Patient: Mary Charles [...] the emergency department lab work today from retirement facility showed hemoglobin of 6.8. Patient is [...] unit of blood and discharged back to retirement facility. Diagnostics interpreted by me: I personally [...] DO 06/21/252211 Patient arrives via EMS from [facility] following bloodwork that showed low hemoglobin. No overt signs of bleeding on arrival. Patient A&O4. Patient does endorse previous blood transfusions. documented in this encounter [facility] 06-21-2025 Emergency department Triage note Patient arrives via EMS from [facility] following bloodwork that showed low hemoglobin. No overt signs of bleeding on arrival. Patient A&O4. Patient does endorse previous blood transfusions. [facility] 06-21-2025 Physician Emergency department Note Emergency Department Encounter [facility] ED Patient: Mary Charles : 1935 Date of Evaluation: 06/21/2025 ED Supervising Physician: Sagar Gilliam, DO I personally saw Mary Charles and [...] the emergency department lab work today from retirement facility showed hemoglobin of 6.8. Patient is [...] unit of blood and discharged back to retirement facility. Diagnostics interpreted by me: I personally [...] [employer] Sagar Gilliam DO 06/21/252211 [facility] Work Phone: 06-17-2025 History of Presen t illness Narrative [facility] Cardiology [facility] CARDIOLOGY - [address] [facility] [address] Dept: [phone] Dept Visit type: Established : 1935 Chief Complaint: Chief Complaint Patient presents with Follow-up 6 Week History of Present Illness: Mary Charles is a 89 y.o. male with HFrEF, Coronary artery disease who is here for followup. Prior events : He presented to [facility] 03/2025 with progressive shortness [...] Rfl: 1 documented in this encounter [facility] 05-06-2025 History of Presen t illness Narrative Images from the original note were not included. [facility] Palliative Care Site of Care: [facility] Chief Complaint: Mary Charles is a [...] hospice conversation today Debility Pt now at [facility] Working with PT/OT Palliative encounter Will [...] Falls: No Current Interventions: PT, OT, and senior living Current Assistive Devices: walker and wheelchair ROS: See palliative care ROS/ESAS below; All other systems were reviewed and are negative. 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 TBD Yamilka Holloway, COACH PROFESSIONAL ATHLETES - [facility] [1] No past medical history on file. [...] Known Allergies documented in this encounter [facility] 05-03-2025 History of Presen t illness Narrative Images from the original note were not included. [facility] CARDIOLOGY - [address] [place] [address] Dept: [phone] Dept Visit type: Established : 1935 Reason [...] of EF 2. 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 Assessment & Plan: [...] weeks (around 06/14/2025). Wants to establish in [place]. Subjective No prior history as he has not been to a doctor for many years He presented to [facility] 03/2025 with progressive shortness [...] pleural effusion. Technically difficult study. Signed by: hTomas Hinton MD on 04/06/2025 12:42 PM Review [...] on file. documented in this encounter [facility] 05-03-2025 Evaluation + Plan note Associated Problem(s): Abnormal CAT scan CT abdomen with mural thickening involving the cecum and terminal ileum concern for neoplasm versus inflammation. Seen by GI with plan for EGD and colonoscopy once stable. -GI follow-up [facility] 05-03-2025 Miscellaneous Notes Associated Problem(s): Abnormal [...] discharge. Hgb 8.2 per labs 04/26/2025 from [facility]. -No aspirin due to anemia - continue [...] today Associated Problem(s): 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 Suspected CAD causing [...] of EF documented in this encounter [facility] 05-03-2025 Evaluation + Plan note Associated Problem(s): PAC (premature atrial contraction) Noted to have irregular heart rhythm during hospitalization and multiple EKGs show sinus rhythm with frequent PACs. -Continue Toprol 25 mg p.o. daily [facility] 05-03-2025 Evaluation + Plan note Associated Problem(s): [...] discharge. Hgb 8.2 per labs 04/26/2025 from [facility]. -No aspirin due to anemia - continue to monitor [facility] 05-03-2025 Evaluation + Plan note Associated Problem(s): Acute kidney injury superimposed on chronic kidney disease (HCC) (HCC) Creatinine 1.46 on admission. Peak creatinine 1.78. Most recent creatinine 1.8 per labs 04/26/2025 - Continue to monitor - may have to accept a higher creatinine to keep him out of HF [facility] 05-03-2025 Evaluation + Plan note Associated Problem(s): Pleural effusion Bedside thoracentesis 04/09/2025 with 1 L removed from the left and 600 mL removed from the right. Repeat left thoracentesis 04/14/2025 with 600 mL removed. - continue to monitor, appears euvolemic today [facility] 05-03-2025 Evaluation + Plan note Associated Problem(s): 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 Suspected CAD causing HFrEF. NO angina. - no ASA 2/2 anemia - continue Toprol 25 mg po daily - continue atorvastatin 20 mg po daily - not a candidate or invasive workup due to anemia, advanced age and frailty [facility] 05-03-2025 Evaluation + Plan note Associated [...] 3 months for re-evaluation of EF [facility] 04-19-2025 History of Presen t illness Narrative Pt was followed by the Palliative Care Team during hospitalization at [facility]. Provider is recommending continued Palliative follow up in the community. Referral made referral to [facility] SNF team. documented in this encounter [facility] 04-17-2025 Nurse Note Report given to Flor MYERS at [facility]. All belongings sent with patient, including eyewear. HL removed, site WNL. RN contacted GUIDE DOG MOBILITY INSTRUCTOR Marleny concerning attempt to wean patient to [...] minimal discomfort L thoracentesis complete per Dr Torres. Pt tolerated well with minimal discomfort Patient was alert, orient*4 all time since he came here this evening but he wakes up and ripped all the tele leads, gown and trying to get up from bed very aggressively. 2 RN , 2 nursing professor were at bedside trying to calm him [...] normal limits. documented in this encounter [facility] 04-17-2025 Miscellaneous Notes Patient Choice Patient Name: MARY CHARLES Date of : 1935 Share Number: 0 Method of Sharing: electronic Date of Sharin2025-04-08 13:13:49.000 Responding Recipient: [email or web address] Ranked Providers Sent Referral Rank: 2 Name: [facility] Phone: [phone] Address: [address] [place] [address] Rank: 3 Name: [facility], Editorially. Phone: [phone] Address: [address] [place] [address] Rank: 1 Name: Jan FUENTES Member Phone: [phone] Address: [address] [place] [address] All Providers Sent Referral Name: [facility] Phone: [phone] Address: [address] [place] [address] Name: [facility]. Phone: [phone] Address: [address] [place] [address] Name: Jan FUENTES Member Phone: [phone] Address: [address] [place] [address] Care Management Progress Note Short Medical why still here: Pending placement. Planned Discharge Disposition: Snf Facility ([facility]) Barriers/Today we still Wait: Clinical stability Length [...] Requested cot transport for 1230 via [facility]. [facility] accepted for 1230. Notified bedside RN of transport time and number to call report. Notified facility of transport time and sent DC Summary and MAR via [facility]Port. Spoke with daughter Anahy Charles at [phone] regarding transportation plan. Confirmed pickup time is 1230. Discussed patient may have a co-pay for ambulance depending on their individual insurance coverage. Advised daughter Anahy to call number on back of insurance card with questions or concerns. Tasked weekend TTC to follow for possible dc over the weekend. manager policy to follow and assist as needed. 7000 Complete in [facility] for [facility] per TCC request Care Management Progress Note [...] at this time. Planned Discharge Disposition: Jan Barton -Notified facility of pt going to there facility under skilled therapy at this time. -Pt wanted a facility where palliative/hospice can follow if he changes his mind. Informed facility of pt's wishes. Pt can transition to hospice services at that facility if he chooses. -Tasked PARACHUTE REPAIRER to complete and upload into [employer]. Barriers/Today we still Wait: Clinical stability, Symptomatic [...] still need placement at a facility. -manager policy to follow and assist as needed. Care [...] Post-discharge arrangement completion (SNF vs hospice) manager policy to follow and assist as needed. Length of Stay (Days): 9 GMLOS: 3.9 Family Communication Number Called: [phone] Name of Designated Family Stock Tracer: Anahy Charles Relationship to patient: Daughter Outcome: I spoke with the individual listed above Family Stock Tracer Updated on the Following: --provided medical update. [...] on Saturday. Signed, Bela Agustin APRN, CNP, [facility] Palliative Care/Hospice PGR [phone] Care Management Progress Note Short Medical why still here: did send bipap settings to [facility] and requested for them to obtain bipap unit for patient to utilize at their facility. Currently requiring oxygen at 1 liter. Anticipate probable dc tomorrow. Will need 7000 and transport arranged. Planned Discharge Disposition: Snf Facility Barriers/Today we still Wait: Administering IV medications, Clinical stability, Facility pre-cert Length of Stay (Days): 8 GMLOS: 3.9 . Referral placed to SNF- [facility] via Careport per TCC request. Await review and response regarding ability to accept. TCC notified. Care Management Progress Note Short Medical why still here: reviewed chart. Dgt has selected SNF choices virtually - 1. [facility] 2. [facility] 3. [facility]. Tasked PARACHUTE REPAIRER to create these referrals - will follow. Planned Discharge Disposition: Snf Facility Barriers/Today we still Wait: Administering IV medications, Clinical stability, Facility pre-cert Length of Stay (Days): 7 GMLOS: 3.9 Called and spoke with deya Higginbotham of patient, and provided DC planning updates. [facility] willing to accept. Updates sent to facility. ICU Transfer Checklist Transfer Med Reconciliation (resume home meds if able, convert to PO if able) Complete Antibiotics (name, indication, duration, convert to PO if able) None Steroid (indication, duration, convert to PO if able) None Anticipated [place] Medications (ICU initiated) or Dose Changes and Indication No Permanently Discontinued Home Medications and Reason for medication contraindication No García Catheter (please remove if able. Note: place DC order) No Central Line (please remove if able. Note: place DC order) No Transfer Discussed with: Dr. Regan with [facility] If additional questions for ICU team within 24 hours of ICU transfer, page [phone] for clarifications. Will assume care as patient is being transferred out of ICU. D/w Dr Torres via secure chat Images from the original note were not included. [facility] Palliative Care Transitions of Care Note Mary [...] care of himself. -Consider medication for mood? -Office Machine Servicer Apprentice support requested. -Monitor. Hx CKD III -CrCl [...] No DISPOSITION: SNF FACILITY/HOME CARE AGENCY NAME: [facility], referrals have been sent to [facility]. Follow up with palliative team [...] Facility Barriers/Today we still Wait: Clinical stability, Latin American Studies Professor recommendations (comment), Diagnostic workup, Administering IV medications, [...] ABG drawn and sent by Resp Therapy. Evchristine by Dr Regan [facility]. Care Management Progress Note Short Medical why [...] if SNF is recommended by PT. manager policy to follow and assist as needed. Length of Stay (Days): 1 GMLOS: No GMLOS Documented documented in this encounter [facility] 04-17-2025 Note [facility] 04-17-2025 Hospital course Narrative Discharge Summary Mary [...] Your Medications These medications were sent to [facility] [address] [place] [address] Hours: Saturday to Saturday 10 am to 6 pm atorvastatin 20 MG tablet hydrALAZINE 10 MG tablet metoprolol succinate XL 25 MG 24 hr tablet senna-docusate sodium 8.6-50 MG tablet spironolactone 25 MG tablet Torsemide 40 MG tablet DIET: Adult diet Regular; No Added Salt (3-4 gm) ACTIVITY: No restriction. COMPLEXITY OF FOLLOW UP: [x] Moderate Complexity: follow up within 7-14 calendar days (38689) [] Severe Complexity: follow up within 7 calendar days (69776) FOLLOW UP TESTING, PENDING RESULTS OR REFERRALS AT TRANSITIONAL CARE VISIT: [x] Yes [] No PENDING STUDIES: DISPOSITION: Skilled Facility FACILITY/HOME CARE AGENCY NAME: Follow up with Nelson Garcia MD [address] [facility] [address] Go on 05/18/2025 Pulmonary hospital follow-up at 9:15 AM Marian Casarez APRN - [facility] [address] [place] [id number] Follow up on 04/22/2025 Cardiology follow-up at 10:00 AM. [facility] Gastroenterology [address] [address] Follow up in 1 month(s) on [...] frame. DISCHARGE TIME: 40 min SIGNED: Albaro Elizabeth MD 04/17/2025, 10:12 AM documented in this encounter [facility] 04-17-2025 History of Presen t illness Narrative [facility] Cardiology /Electrophysiology Progress Note HPI / [...] follow-up 04/22/2025 at 10 AM at the [facility] office with myself, Marian Casarez CNP. I have reviewed with primary team. Please reach out for additional questions or concerns. Medications: Scheduled Meds[1] Infusion Medications: Continuous Meds[2] Physical Examination: Vitals: 04/16/25 2059 04/17/25 0147 04/17/25 0500 04/17/25 0840 BP: [...] No results found for: TROPDELTSEC Recent Labs 04/15/2521104/16/25 0339 04/17/25 0440 NA 139 140 138 [...] Daily torsemide, 40 mg, Oral, Daily [2] [facility] Respiratory Care Department Progress Note Comment or [...] care of himself. -Consider medication for mood? -Office Machine Servicer Apprentice support requested. -Monitor. Hx CKD III -CrCl [...] detailed in the note above. Bela Agustin, COACH PROFESSIONAL [employer]LETES - [facility] Palliative Care Assessments: Goals of care: Continue [...] other systems were reviewed and are negative. [place] Symptom Assessment Score [place] Score Pain Score (if non-verbal, add .FLACC [...] notes): BMP, CBC 04/16/25 Pulmonology note from 8-7 04/16/25 Data in Support of Terminal Illness: Is [...] On: Kcal/kg Weight Used for Energy Requirements: [place] Weight for Energy Calculation (kg): 70 kg Total Energy Requirements (kcals/day): 6341-9306 (25-30) Weight Used for Protein Requirements: [place] Weight in Kg Used for Protein Requirements: [...] Body Weight: (none on file to review) [place] Body Weight (lbs) (Calculated): 154 lbs [place] Body Weight (Kg) (Calculated): 70 kg % [place] Body Weight (Calculated): 129.9 % BMI (kg/m2) [...] Continue current diet Kristin Duffy RD Contact: *[phone] or via Secure Chat Images from the original note were not included. OCCUPATIONAL THERAPY [facility] Treatment Note Name/MRN: Mary Charles ([id number]) Date of : 1935 Age: 89 y.o. [...] PLT [phone] BMP: Recent Labs 04/14/2545604/15/2521104/16/25 0339 NA 140 139 140 K 3.8 3.5 3.6 CL 92* 90* 87* CO2 39* 40* 43* BUN 39* 43* 46* CREATININE 1.43* 1.58* 1.81* GLUCOSE 97 130* 114 CALCIUM 8.1* 8.2* 8.2* ANIONGAP 9 9 10 LIVER PROFILE: Recent Labs 04/14/2545604/15/2521104/16/25 0339 AST 19 21 23 ALT <6 [...] ANAHY CHARLES Mobile Relation: Daughter Preferred language: Nigerian Budget Assistant needed? No Albaro Elizabeth MD Division of Hospitalist Medicine [facility] [1] History reviewed. No pertinent past [...] from the original note were not included. [facility], Pulmonary Medicine [address] [place] [id number] Patient - Mary Chrales, Age - 89 y.o. - 1935 Room Number - B2-268/[id number] B Consulting - Albaro Elizabeth MD Primary Care Physician - No primary [...] Units 04/16/25 0339 04/15/25 0212 04/14/25 0457 SODIUM mmol/L 140 139 [...] 7 days Lab Units 04/16/25 0339 04/15/25 02104/14/25 0457 ALK PHOS U/L 55 48 47 [...] failure, unspecified heart failure type (HCC) [facility] Cardiology /Electrophysiology Progress Note HPI / [...] No results found for: TROPDELTSEC Recent Labs 04/14/25 0457 04/15/25 0212 04/16/25 0339 NA 140 139 140 K 3.8 3.5 3.6 CL 92* 90* 87* CO2 39* 40* 43* BUN 39* 43* 46* CREATININE 1.43* 1.58* 1.81* Recent Labs 04/14/25 0457 04/15/25 0212 04/16/25 0339 WBC 12.3* 12.4* 13.1* HGB 7.6* [...] Daily torsemide, 40 mg, Oral, Daily [2] [facility] Respiratory Care Department Progress Note Comment or [...] in the care of this patient, [facility] [place] [facility] Cardiology /Electrophysiology Progress Note HPI / Interval [...] found for: TROPDELTSEC Recent Labs 04/13/25 0214 04/14/25 0457 04/15/25 0212 NA 139 140 139 K 3.4* 3.8 3.5 CL 93* 92* 90* CO2 36* 39* 40* BUN 37* 39* 43* CREATININE 1.46* 1.43* 1.58* Recent Labs 04/13/25 0214 04/13/25 0424 04/14/25 0457 04/15/25 0212 WBC 12.7* -- 12.3* 12.4* HGB 7.8* [...] from the original note were not included. [facility], Pulmonary Medicine [address] [place] [id number] Patient - Mary Charles, Age - 89 y.o. - 1935 Room Number - B2-268/B2-268 B Consulting - Albaro Elizabeth MD Primary Care Physician - No primary care provider on file[id number] Date of Admission - 04/05/2025 3:55 PM [...] Results from last 7 days Lab Units 04/15/25211 WBC AUTO 10*3/uL 12.4* HEMOGLOBIN g/dL 7.8* HEMATOCRIT % 28.0* PLATELETS 10*3/uL 332 BMP: Results from last 7 days Lab Units 04/15/2521104/14/2545604/13/25213 SODIUM mmol/L 139 140 139 POTASSIUM mmol/L [...] from last 7 days Lab Units 04/15/25 02104/14/2545604/13/25213 ALK PHOS U/L 48 47 52 BILIRUBIN [...] ANAHY CHARLES Mobile Relation: Daughter Preferred language: Nigerian Budget Assistant needed? No Albaro Elizabeth MD Division of Hospitalist Medicine [facility] [1] History reviewed. No pertinent past medical [...] ON 04/16/2025] polyethylene glycol (PEG) 3350 [4] [facility] Respiratory Care Department Progress Note Comment or [...] in the care of this patient, [facility] Cardiology /Electrophysiology Progress Note HPI / [...] No results found for: TROPDELTSEC Recent Labs 04/12/2532404/13/254 04/14/25 0457 NA 139 139 140 K [...] original note were not included. OCCUPATIONAL THERAPY [facility]'s Name/MRN: Mary Charles ([id number]) Date: 04/14/2025 Attempted to see pt for OT tx. Pt reported being very fatigued after getting cleaned up and working with PT this AM. Unable to encourage participation in OT tx at this time. Marleni Victor OT Images from the original note were not included. PHYSICAL THERAPY [facility] Treatment Note Name/MRN: Mary Charles ([id number]) Date of : 1935 Age: 89 y.o. Room/Bed: B2-268/B2-268 B Visit #: 4 out of 5 [...] History: Medical History[1] LABS: CBC: Recent Labs 04/12/25 0325 04/13/25 0214 04/13/25 0424 04/14/25 0457 WBC 12.0* 12.7* -- 12.3* RBC 3.20* [...] LIVER PROFILE: Recent Labs 04/12/2532404/13/2521304/14/25456 AST 19 19 ALT <6 <6 <6 BILITOT 0.6 [...] ANAHY CHARLES Mobile Relation: Daughter Preferred language: Nigerian Budget Assistant needed? No Albaro Elizabeth MD Division of Hospitalist Medicine Acute care [...] from the original note were not included. [facility] Pul[place] [address] [place] [id number] Patient - Mary Charles, Age - 89 y.o. - 1935 Room Number - B2-268/B2-268 B Consulting - Albaro Elizabeth MD Primary Care Physician - No primary [...] at home. I spoke with Breana from [employer]. Likely will need to have bedside spirometry [...] On: Kcal/kg Weight Used for Energy Requirements: [place] Weight for Energy Calculation (kg): 70 kg Total Energy Requirements (kcals/day): 2427-7489 (25-30) Weight Used for Protein Requirements: [place] Weight in Kg Used for Protein Requirements: [...] Body Weight: (none on file to review) [place] Body Weight (lbs) (Calculated): 154 lbs [place] Body Weight (Kg) (Calculated): 70 kg % [place] Body Weight (Calculated): 136.1 % BMI (kg/m2) [...] Oral Nutrition Supplement Kristin Duffy RD Contact: *[phone] or via Secure Chat Images from the original note were not included. OCCUPATIONAL THERAPY [facility] Treatment Note Name/MRN: Mary Charles ([id number]) Date of : 1935 Age: 89 y.o. Room[facility]Bed: [facility] B Visit #: 3 out of 7 [...] OT at 04/14/2025 9:03 AM EDT [facility] [place] [facility] Cardiology /Electrophysiology Progress Note HPI / Interval [...] found for: TROPDELTSEC Recent Labs 04/11/25 0501 04/12/255 04/13/25 021 NA 139 139 139 K 3.6 3.7 [...] Medical History[1] LABS: CBC: Recent Labs 04/11/25 05004/12/2532404/13/254 04/13/25 0424 WBC 13.8* 12.0* 12.7* -- RBC 3.48* 3.20* 3.36* -- HGB 7.9* 7.4* 7.8* 11.3* HCT 28.9* 26.8* 28.2* -- MCV 83.0 83.8 83.9 -- RDW 24.2* 24.3* 25.0* -- PLT 313 272 276 -- BMP: Recent Labs 04/11/25 05004/12/2532404/13/25 021 NA 139 139 139 K 3.6 3.7 3.4* CL 94* 95* 93* CO2 35* 37* 36* BUN 36* 40* 37* CREATININE 1.55* 1.53* 1.46* GLUCOSE 103 103 94 CALCIUM 8.1* 7.9* 8.1* ANIONGAP 10 7 10 LIVER PROFILE: Recent Labs 04/11/25 05004/12/25 0325 04/13/25 021 AST 18 19 25 ALT <6 <6 [...] ANAHY CHARLES Mobile Relation: Daughter Preferred language: Nigerian Budget Assistant needed? No Albaro Elizabeth MD Division of Hospitalist Medicine Acute care [...] from the original note were not included. [facility], Pulmonary Medicine [address] [place] [address] Patient - Mary Charles, Age - 89 y.o. - 1935 Room Number - B2-268/B2-268 B Consulting - Albaro Elizabeth MD Primary Care Physician - No primary care provider on file. [id number] Date of Admission - 04/05/2025 3:55 PM [...] last 7 days Lab Units 04/13/25 0424 04/13/25 0214 WBC AUTO 10*3/uL -- 12.7* HEMOGLOBIN [...] original note were not included. OCCUPATIONAL THERAPY [facility] Treatment Note Name/MRN: Mary Charles ([id number]) Date of : 1935 Age: 89 y.o. Room/Bed: I1-268/J1-495 B Visit #: 2 out of 7 visits Discharge Recommendation: Snf Facility Equipment Needed: No Prior Level of Function Prior Level of ADL Function: Required Assist (for showering and pt wipes himself down with wash cloth IND) Prior Level of Mobility: Independent; Device: Rollator Prior Level of Transfers: Independent Assessment Pt agreeable to therapy at first attempt ([phone]) but states that he first needs to [...] care of himself. -Consider medication for mood? -Office Machine Servicer Apprentice support requested. -Monitor. Hx CKD III -CrCl [...] hospital setting and will send referral to vegetable cookhelp desk coordinator for palliative SNF referral. -Questions answered, [...] other systems were reviewed and are negative. [place] Symptom Assessment Score [place] Score Pain Score (if non-verbal, add .FLACC [...] labs, imaging reports and other specialty notes): MICHELLE FARIA 04/12/25 Data in Support of Terminal Illness: Is patient hospice appropriate? Eligible, but not consistent with GOC at this time LOURDES Ordaz CNP Hospitalist Progress Note 04/12/20256998679-4621: Please secure chat me for patient care issues. [phone]: Please secure chat [facility] Hospitalist for any issues. Subjective: Admit Date: [...] diet Regular; No Added Salt (3-4 gm) @ZKJI1AYLHVA@ 24HR INTAKE/OUTPUT: Intake/Output Summary (Last 24 hours) at 04/12/2025 1059 Last data filed at 04/12/2025 0917 Gross per 24 hour Intake 240 ml Output 650 ml Net -410 ml Past Medical History: Medical History[1] LABS: CBC: Recent Labs 04/10/253 04/11/25 0501 04/12/25 0325 WBC 12.4* 13.8* 12.0* RBC 3.18* 3.48* 3.20* HGB 7.2* 7.9* 7.4* HCT 26.1* 28.9* 26.8* MCV 82.1 83.0 83.8 RDW 22.9* 24.2* 24.3* PLT 294 313 272 BMP: Recent Labs 04/10/25 0443 04/11/25 0501 04/12/25 0325 NA 142 139 139 K 3.2* 3.6 3.7 CL 95* 94* 95* CO2 35* 35* 37* BUN 32* 36* 40* CREATININE 1.65* 1.55* 1.53* GLUCOSE 98 103 103 CALCIUM 8.0* 8.1* 7.9* ANIONGAP 12 10 7 LIVER PROFILE: Recent Labs 04/10/25 0443 04/11/25 0501 04/12/25 0325 AST 16 18 19 [...] care input PT and OT assessments recommended retirement facility -am labs, replace lytes prn -increase activity -DVT prophylaxis: [] Lovenox [] Heparin [x] SCDs [x] Encourage ambulation [] Already on Anticoagulation - GI prophylaxis : Anticipated Discharge - Date -April 14 or - Location -retirement facility - Pending the following -clinical improvement, specialist clearance Total time spent (which include face to face and non face to face encounters) : 53 minutes Toxic drug monitoring/narrow therapeutic index drug monitoring : # Drug name : # Route administered : # Method of monitoring : Extended Emergency Contact Information Primary Emergency Contact: ANAHY CHARLES Mobile Relation: Daughter Preferred language: Nigerian Budget Assistant needed? No Westley Martinez MD Division of Hospitalist Medicine [facility] PAGER: Comprehensive Care chat [1] History reviewed. No pertinent past [...] original note were not included. PHYSICAL THERAPY [facility] Treatment Note Name/MRN: Mary Charles ([id number]) Date of : 1935 Age: 89 y.o. [...] PT at 04/12/2025 10:47 AM EDT [facility] [place] [facility] Cardiology /Electrophysiology Progress Note HPI / Interval History: Mary Charles has no prior cardiac history (has not seen a physician for many years) who presented to [facility] with worsening SOB, hypoxia [...] Benson CNP Date Of Service 04/12/2025 [1] [facility] Respiratory Care Department Progress Note Comment or [...] original note were not included. OCCUPATIONAL THERAPY [facility] Treatment Note Name/MRN: Mary Charles ([id number]) Date of : 1935 Age: 89 y.o. Room/Bed: [facility]268/[facility] B Visit #: 1 out of 7 [...] 1:38 PM EDT Hospitalist Progress Note 04/11/2025 [phone]: Please secure chat me for patient care issues. [phone]: Please secure chat [facility] Hospitalist for any issues. Subjective: Admit Date: 04/05/2025 PCP: No primary care provider on file. Room#: -268/[facility]268 B Brief History: Patient is an 89-year-old [...] diet Regular; No Added Salt (3-4 gm) @[id number]@ 24HR INTAKE/OUTPUT: Intake/Output Summary (Last 24 hours) [...] 294 313 BMP: Recent Labs 04/09/25 04004/10/25 04404/11/25 0501 NA 142 142 139 K 3.5 [...] - Location -Home with home health versus retirement facility - Pending the following -PT and [...] ANAHY CHARLES Mobile Relation: Daughter Preferred language: Nigerian Budget Assistant needed? No Westley Martinez MD Division of Hospitalist Medicine Acute care [employer] PAGER: Comprehensive Care chat [1] History reviewed. No pertinent past [...] 04/12/2025] torsemide, 40 mg, Oral, Daily [facility] Cardiology /Electrophysiology Progress Note HPI / Interval History: Mary Charles has no prior cardiac history (has not seen a physician for many years) who presented to [facility] with worsening SOB, hypoxia [...] No results found for: TROPDELTSEC Recent Labs 04/09/259 04/10/253 04/11/25 0501 NA 142 142 139 K [...] Benson CNP Date Of Service 04/11/2025 [1] [facility] Respiratory Care Department Progress Note Comment or [...] original note were not included. PHYSICAL THERAPY [facility] Treatment Note Name/MRN: Mary Charles ([id number]) Date of : 1935 Age: 89 y.o. [...] original note were not included. OCCUPATIONAL THERAPY [facility] Initial Evaluation Name/MRN: Mary Charles ([id number]) Evaluation Date: 04/10/2025 Date of : 1935 Admission Date: 04/05/2025 3:55 PM Age: 89 y.o. Room/Bed: 222/222 A Discharge Recommendation: Snf Facility Equipment Needed: [...] Needs Assist Receives Help From: Family Active Event Coordinator Marketing And Sales: No Prior Level of Function Prior Level [...] Therapy Time Individual Co-Treatment Co-Evaluation Time In 09 Time Out 1019 Minutes 25 Timed Code Treatment Minutes: 8 Minutes (Ther Act) Jose Guadalupe Gongora OT Patient's Occupational Therapy Plan of Care supervision is transferred to a [facility] Services Occupational Therapist. Goals and/or treatment [...] History reviewed. No pertinent surgical history. [facility] [facility] Cardiology /Electrophysiology Progress Note HPI / Interval History: Mary Charles has no prior cardiac history (has not seen a physician for many years) who presented to [facility] with worsening SOB, hypoxia [...] Position: Pulse: 70 76 102 Resp: 15 21 Temp: 37.4 C (99.4 F) TempSrc: [...] results found for: TROPDELTSEC Recent Labs 04/08/25 00104/09/25 0409 04/10/25 0443 NA 142 142 142 K 3.4* 3.5 3.2* CL 99 98 95* CO2 33* 34* 35* BUN 26* 25* 32* CREATININE 1.78* 1.53* 1.65* Recent Labs 04/08/25 0017 04/08/25 1654 04/08/25205204/09/2540804/10/25 0443 WBC 13.0* -- -- 11.2* 12.4* [...] April 10, 2025 Team: MICU Attending: Precious Torres MD Subjective: Hospital Summary: Patient is a pleasant 89 year-old male with a history of chronic HFrEF and prior remote tobacco abuse who was admitted to [facility] 04/05/25 with shortness of [...] Normal [] Scar/Lesion/Mass Inspection of teeth/lips/gums: Dentition: [x][place] Teeth []Dentures Lips/Gums [x]Intact []Lesion Present Oropharynx exam: Mucosa [x][place] []Moist []Dry Neck: External Appearance: Overall Appearance:[x]Normal [...] within last 24 hours- BMP: Recent Labs 04/08/25 0017 04/09/25 0409 04/10/25 0443 NA 142 142 142 K 3.4* 3.5 3.2* CL 99 98 95* CO2 33* 34* 35* BUN 26* 25* 32* CREATININE 1.78* 1.53* 1.65* CALCIUM 7.9* 8.1* 8.0* MG 1.6 1.7 1.7 PHOS -- 3.5 2.6 LFTS: Recent Labs 04/08/251604/09/2540804/09/25 1019 04/10/25 0443 AST 21 18 -- 16 ALT <6 <6 -- <6 PROT 5.8* 5.7* 5.9* 5.5* BILITOT 0.6 0.7 -- 0.6 ALKPHOS 57 56 -- 50 Glucose: Recent Labs 04/08/251604/08/25 1631 04/09/2540804/10/25 044 GLUCOSE 99 -- 90 98 POCGLU -- [...] ABGs: Recent Labs 04/08/25165304/08/252052 PHART 7.296* 7.332* [id number] 80.1* 75.1* PO2ART 92.0 104.0 [id number] 38.2* 38.9* [id number] 96.1* 97.0 Lactic Acid: No lab exists [...] can use the urinal, no indication for HEAD ORTHOPEDIC TEAM PHYSICIAN at this time (would be a poor [...] Code Status: Full Code Disposition: Transfer to [facility] with telemetry Critical care time spent reviewing labs/films, examining patient, collaborating with other physicians but excluding procedures for life threatening organ failure is 35 minutes. Precious Torres MD Pulmonary & Critical Care Medicine [facility] Pager #[phone] [1] atorvastatin, 20 mg, Oral, Nightly carvedilol, 3.125 mg, Oral, BID WC furosemide, 40 mg, IntraVENous, BID hydrALAZINE, 25 mg, Oral, TID mupirocin, 1 Application, Nasal, BID pantoprazole, 40 mg, Oral, qAM AC polyethylene glycol (PEG) 3350, 17 g, Oral, Daily senna-docusate sodium, 2 tablet, Oral, BID [Held by provider] torsemide, 20 mg, Oral, Daily [2] [facility] Cardiology /Electrophysiology Progress Note HPI / Interval History: Mary Charles has no prior cardiac history (has not seen a physician for many years) who presented to [facility] with worsening SOB, hypoxia [...] Does appear tired. Family at bedside (brother, albrkx-cv-uek, daughter). No significant complaints today. Assessment/Plan HF [...] No results found for: TROPDELTSEC Recent Labs 04/07/2531304/08/257 04/09/25 0409 NA 143 142 142 K 3.6 3.4* 3.5 CL 98 99 98 CO2 31 33* 34* BUN 26* 26* 25* CREATININE 1.63* 1.78* 1.53* Recent Labs 04/07/2531304/08/251604/08/25 1654 04/08/25205204/09/25 0409 WBC 11.5* 13.0* -- [...] pleural effusion. Technically difficult study. Signed by: Otfried N Niedermaier, MD on 04/06/2025 12:42 PM Other reports reviewed: Cardiac Tests: Telemetry findings reviewed: SR with PAC EF BP Date Value Ref Range Status 04/06/2025 22 (A) 55 - 100 % Final LOURDES Zambrano CNP Date Of Service 04/09/2025 [1] Images from the original note were not included. PHYSICAL THERAPY [facility] Treatment Note Name/MRN: Mary Charles ([id number]) Date of : 1935 Age: 89 y.o. Room/Bed: 222/222 A Visit #: 1 out of 5 [...] Raw Score (No Stairs) : 12 JH-HLM JH-HLM Score: Static standing (1 or [...] x1) Lucrecia Cabral PT Spiritual Care Note [facility] Palliative Care Patient Name:Mary Charles Chief [...] of grief. He spoke about moving from [place] to [place] as a young man. We did some life review. No follow up. Is there spiritual distress? YES Comment: Grief Interventions: spiritual support provided, emotional support provided, empathetic listening, and validated feelings. Care Plan: No care plan. Follow Up: No follow up. Debriefed: with outdoor advertising leasing agent team. Carmelita Chairez 04/09/25 Images from the [...] care of himself. -Consider medication for mood? -Office Machine Servicer Apprentice support requested. -Monitor. Hx CKD III -CrCl [...] other systems were reviewed and are negative. [place] Symptom Assessment Score [place] Score Pain Score (if non-verbal, add .FLACC [...] original note were not included. OCCUPATIONAL THERAPY [facility]'s Name/MRN: Mary Charles ([id number]) Date: 04/09/2025 OT order received, chart review completed. Pt unavailable for evaluation upon arrival, with other providers x2 attempts this date. Will continue to monitor and re-attempt during current admission. Dora Huynh, OT MICU Progress Note Mary Charles : 1935(89 y.o.) Date: April 09, 2025 Team: MICU Attending: Precious Torres MD Subjective: Hospital Summary: Patient is a pleasant 89 year-old male with a history of chronic HFrEF and prior remote tobacco abuse who was admitted to [facility] 04/05/25 with shortness of [...] Normal [] Scar/Lesion/Mass Inspection of teeth/lips/gums: Dentition: [x][place] Teeth []Dentures Lips/Gums [x]Intact []Lesion Present Oropharynx exam: Mucosa [x][place] []Moist []Dry Neck: External Appearance: Overall Appearance:[x]Normal [...] within last 24 hours- BMP: Recent Labs 04/07/25 0314 04/08/25 0017 04/09/25 0409 NA 143 142 142 K 3.6 3.4* 3.5 CL 98 99 98 CO2 31 33* 34* BUN 26* 26* 25* CREATININE 1.63* 1.78* 1.53* CALCIUM 7.9* 7.9* 8.1* MG 1.7 1.6 1.7 PHOS -- -- 3.5 LFTS: Recent Labs 04/07/2531304/08/25 0017 04/09/25 0409 AST 23 21 18 ALT <6 <6 <6 PROT 5.7* 5.8* 5.7* BILITOT 0.7 0.6 0.7 ALKPHOS 57 57 56 Glucose: Recent Labs 04/07/254 04/08/25 0017 04/08/25 1631 04/09/25 0409 GLUCOSE 88 99 -- 90 POCGLU -- -- 100 -- Procal: No results for input(s): PROCAL in the last 72 hours. CBC: Recent Labs 04/07/2531304/08/251604/08/25165304/08/25205204/09/25 0409 WBC 11.5* 13.0* -- -- 11.2* HGB 7.4* 7.2* 8.6* 8.4* 7.5* HCT 27.2* 25.9* -- -- 27.7* PLT 346 314 -- -- 279 MCV 80.0 80.2 -- -- 83.4 RDW 20.5* 21.1* -- -- 21.8* ABGs: Recent Labs 04/08/25165304/08/252052 PHART 7.296* 7.332* TOB1ICC 80.1* 75.1* PO2ART 92.0 104.0 TAI5EQL 38.2* 38.9* A0MSAUCP 96.1* 97.0 Lactic Acid: No lab exists [...] urology evaluation, strict I/O's, no indication for HEAD ORTHOPEDIC TEAM PHYSICIAN at this time (would be a poor [...] threatening organ failure is 35 minutes. Precious Torres MD Pulmonary & Critical Care Medicine [facility] Pager #[phone] [1] atorvastatin, 20 mg, Oral, Nightly carvedilol, [...] critical care time excluding procedures D/w Yamilka, HEAD ORTHOPEDIC TEAM PHYSICIAN, Rosangela, RN and family at bedside. Images from the original note were not included. OCCUPATIONAL THERAPY [facility] Name/MRN: Mary Charles ([id number]) Date: 04/08/2025 Therapy eval and treat orders [...] the patient. CBC: Recent Labs 04/06/25 0334 04/07/254 04/08/25 001 WBC 10.3 11.5* 13.0* HGB 7.6* 7.4* 7.2* HCT 27.2* 27.2* 25.9* PLT 344 346 314 HEPATIC: Recent Labs 04/07/2531304/08/25 0017 AST 23 21 ALT <6 <6 [...] with [facility] Hospitalist Progress Note 04/08/2025 [phone]: Please secure chat me for patient care issues. [phone]: Please secure chat [facility] Hospitalist for any issues. Subjective: Admit Date: [...] dose of lorazepam.... Adult diet Clear liquid @ROSA0OSPUCO@ 24HR INTAKE/OUTPUT: Intake/Output Summary (Last 24 hours) at 04/08/2025 1112 Last data filed at 04/07/2025 1950 Gross per 24 hour Intake 240 ml Output -- Net 240 ml Past Medical History: Medical History[1] LABS: CBC: Recent Labs 04/06/25 0334 04/07/25 0314 04/08/25 0017 WBC 10.3 11.5* 13.0* RBC 3.46* 3.40* 3.23* HGB 7.6* 7.4* 7.2* HCT 27.2* 27.2* 25.9* MCV 78.6 80.0 80.2 RDW 20.5* 20.5* 21.1* PLT 344 346 314 BMP: Recent Labs 04/06/25 0334 04/07/25 0314 04/08/25 0017 NA 143 143 142 K 4.2 3.6 3.4* CL 104 98 99 CO2 26 31 33* BUN 24* 26* 26* CREATININE 1.44* 1.63* 1.78* GLUCOSE 98 88 99 CALCIUM 8.2* 7.9* 7.9* ANIONGAP 13 14* 10 LIVER PROFILE: Recent Labs 04/06/25 0334 04/07/25 0314 04/08/25 0017 AST 25 23 21 ALT 6 [...] Date -April 11 or - Location -possible retirement facility - Pending the following -clinical improvement, [...] Contact: MELVINANAHY Mobile Relation: Daughter Preferred language: Nigerian Budget Assistant needed? No Westley Martinez MD Division of Hospitalist Medicine Acute care [facility] PAGER: Epic chat [1] History reviewed. No pertinent past medical history. [2] [3] atorvastatin, 20 mg, Oral, Nightly carvedilol, 3.125 mg, Oral, BID WC [Held by provider] furosemide, 40 mg, IntraVENous, BID hydrALAZINE, 25 mg, Oral, TID iron sucrose, 200 mg, IntraVENous, q24h pantoprazole, 40 mg, Oral, qAM AC [facility] Cardiology /Electrophysiology Progress Note HPI / Interval History: Mary Charles has no prior cardiac history (has not seen a physician for many years) who presented to [facility] with worsening SOB, hypoxia [...] PLT 358 344 346 314 Recent Labs 04/05/25 1617 BNP 8,438* Recent [...] 3. Dysphagia - resolved Spiritual Care Note [facility] Palliative Care Patient Name:Mary Charles Chief Complaint: Chief Complaint Patient presents with Leg Swelling Shortness of Breath Pt arrived to triage for shortness of breath and swelling legs. Pt endorses increased work of breath, weakness, confusion and no appetite. 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 Introduced myself and pastoral care to [...] and when patient is able. Debriefed: with outdoor advertising leasing agent team. Carmelita Chairez 04/07/25 Images from the original note were not included. PHYSICAL THERAPY [facility] Initial Evaluation Name/MRN: Mary Charles ([id number]) Evaluation Date: 04/07/2025 Date of : 1935 Admission Date: 04/05/2025 3:55 PM Age: 89 y.o. Room/Bed: B2-254/B2-254 A Discharge Recommendation: Snf Facility Equipment Needed: [...] Needs Assist Receives Help From: Family Active Event Coordinator Marketing And Sales: No Prior Level of Function Prior Level [...] Raw Score (No Stairs) : 11 JH-HLM -[facility] Score: Static standing (1 or more [...] of Care supervision is transferred to a [facility] Therapy Services Physical Therapist. Goals and/or treatment plan was established in collaboration with patient/family/other representatives. [1] History reviewed. No pertinent past medical history. [2] History reviewed. No pertinent surgical history. Cosigned by Lucrecia Cabral PT at 04/07/2025 4:00 PM EDT Hospitalist Progress Note 04/07/20256990525-9755: Please secure chat me for patient care issues. [phone]: Please secure chat [facility] Hospitalist for any issues. Subjective: Admit Date: [...] diet Regular; No Added Salt (3-4 gm) @[id number]@ 24HR INTAKE/OUTPUT: Intake/Output Summary (Last 24 hours) at 04/07/2025 1133 Last data filed at 04/06/2025 2241 Gross per 24 hour Intake 210 ml Output 1720 ml Net -1510 ml Past Medical History: Medical History[1] LABS: CBC: Recent Labs 04/05/25161604/06/25 0334 04/07/25 031 WBC 10.0 10.3 11.5* RBC 2.83* 3.46* 3.40* HGB 5.5* 7.6* 7.4* HCT 20.7* 27.2* 27.2* MCV 73.1* 78.6 80.0 RDW 19.9* 20.5* 20.5* PLT 358 344 346 BMP: Recent Labs 04/05/25161604/06/25 0334 04/07/25 031 NA 140 143 143 K 4.5 4.2 3.6 CL 105 104 98 CO2 27 26 31 BUN 24* 24* 26* CREATININE 1.46* 1.44* 1.63* GLUCOSE 108 98 88 CALCIUM 8.4* 8.2* 7.9* ANIONGAP 8 13 14* LIVER PROFILE: Recent Labs 04/05/25 16104/06/25 0334 04/07/25 031 AST 22 25 23 ALT 7 [...] Date -April 11 or - Location -possible retirement facility - Pending the following -clinical improvement, [...] ANAHY CHARLES Mobile Relation: Daughter Preferred language: Nigerian Budget Assistant needed? No Westley Martinez MD Division of Hospitalist [facility] PAGER: Comprehensive Care chat [1] History reviewed. No pertinent past medical history. [2] [3] atorvastatin, 20 mg, Oral, Nightly carvedilol, 3.125 mg, Oral, BID WC furosemide, 40 mg, IntraVENous, BID hydrALAZINE, 25 mg, Oral, TID iron sucrose, 200 mg, IntraVENous, q24h pantoprazole, 40 mg, Oral, qAM AC [facility] Cardiology /Electrophysiology Progress Note HPI / Interval History: Mary Charles has no prior cardiac history (has not seen a physician for many years) who presented to [facility] with worsening SOB, hypoxia [...] assess Fluid Accumulation: Moderate to Severe Extremities Endoscopy Specialty Technician Strength: Not Performed Nutrition Assessment: 89 y.o. [...] anemia and frailty. Conservative, medical management. nursing tech in room. Pt sleeping /snoring -name called numerous times pt did not wake -left undisturbed at this time. Estimated Daily Nutrient Needs: Energy Requirements Based On: Kcal/kg Weight Used for Energy Requirements: [place] Weight for Energy Calculation (kg): 70 kg Total Energy Requirements (kcals/day): 1441-1505 (25-30) Weight Used for Protein Requirements: [place] Weight in Kg Used for Protein Requirements: [...] lb) Usual Body Weight: (unable to obtain) [place] Body Weight (lbs) (Calculated): 154 lbs [place] Body Weight (Kg) (Calculated): 70 kg % [place] Body Weight (Calculated): 129.9 % BMI (kg/m2) [...] soon to determine Kristin Duffy RD Contact: *[phone] or via Secure Chat [1] atorvastatin, 20 mg, Oral, Nightly carvedilol, 3.125 mg, Oral, BID WC furosemide, 40 mg, IntraVENous, BID hydrALAZINE, 25 mg, Oral, TID iron sucrose, 200 mg, IntraVENous, q24h pantoprazole, 40 mg, Oral, qAM AC [2] Hospitalist Progress Note 04/06/2025 [phone]: Please secure chat me for patient care issues. [phone]: Please secure chat [facility] night Hospitalist for any issues. Subjective: Admit [...] ferritin, IV Venofer added Adult diet Regular @[id number]@ 24HR INTAKE/OUTPUT: Intake/Output Summary (Last 24 hours) [...] ANAHY CHARLES Mobile Relation: Daughter Preferred language: Nigerian Budget Assistant needed? No Westley Martinez MD Division of Hospitalist Medicine [facility] PAGER: Comprehensive Care chat [1] History reviewed. No pertinent past medical history. [2] [3] atorvastatin, 20 mg, Oral, Nightly carvedilol, 3.125 mg, Oral, BID WC furosemide, 40 mg, IntraVENous, BID hydrALAZINE, 25 mg, Oral, TID iron sucrose, 200 mg, IntraVENous, q24h pantoprazole, 40 mg, Oral, qAM AC documented in this encounter [facility] 04-14-2025 Note IR US Thoracentesis 650 ml of hines yellow fluid removed. Vaseline guaze dressing applied. Patient tolerated procedure well. Patient returned to IN patient room. [facility] 04-14-2025 Consult note Associated Order (s): IP CONSULT TO PALLIATIVE CARE Consult acknowledged. Patient previously seen by palliative care. Signed off on 04-12. Patient has had worsening status in last couple days, worsening pleural effusion. 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 Consult placed. Will see tomorrow s/p thoracentesis. Signed, Bela Agustin APRN, CNP, ACHPN Palliative Care/Hospice PGR [phone] Cosigned by Diana Marsh MD at 04/14/2025 1:38 PM EDT Images from the original note were not included. [facility], Pulmonary Medicine [address] [place] [id number] [id number] 1935 Date of Admission - 04/05/2025 3:55 PM Date of evaluation - 04/12/2025 Room - [facility] B Hospital Day - 7 Consulting - [...] ml Output 650 ml Net -410 ml @[id number]@ Physical Exam Physical Exam Vitals and nursing [...] from last 7 days Lab Units 04/08/25 20504/08/25 1654 PH ART 7.332* 7.296* PCO2 ART [...] Pulmonary function tests (PFT's) No PFT's in [facility] Sleep History No sleep study available in [facility] Radiology CXR 04/11/25: IMPRESSION: Cardiomegaly with mild [...] deltoids) Fluid Accumulation: Moderate to Severe Extremities Endoscopy Specialty Technician Strength: Normal bottoming room supervisor strength Nutrition Assessment: 89 year old man who remains admitted to [facility] with shortness of breath [...] Completed NFPE with consent, discussed with Dr Torres and diet advanced post visit. Estimated Daily Nutrient Needs: Energy Requirements Based On: Kcal/kg Weight Used for Energy Requirements: [place] Weight for Energy Calculation (kg): 70 kg Total Energy Requirements (kcals/day): 2401-1182 (25-30) Weight Used for Protein Requirements: [place] Weight in Kg Used for Protein Requirements: [...] Body Weight: (none on file to review) [place] Body Weight (lbs) (Calculated): 154 lbs [place] Body Weight (Kg) (Calculated): 70 kg % [place] Body Weight (Calculated): 136.1 % BMI (kg/m2) [...] to determine Darleen Stubbs RDN, LDN, Contact: *[phone] Associated Order(s): INPATIENT CONSULT TO CRITICAL CARE - MEDICAL TEAM Internal Medicine: MICU Initial Consult Name: Mary Charles : 1935(89 y.o.) Date: 04/08/25 Attending: Precious Torres MD Subjective: Chief Complaint: shortness of breath HPI: Patient is a pleasant 89 year-old male with a history of chronic HFrEF and prior remote tobacco abuse who was admitted to [facility] 04/05/25 with shortness of [...] Normal [] Scar/Lesion/Mass Inspection of teeth/lips/gums Dentition: [x][place] Teeth []Dentures Lips/Gums: [x]Intact []Lesion Present Mucosa: [x][place] []Moist []Dry Neck: External Appearance Overall Appearance: [...] within last 24 hours- BMP: Recent Labs 04/06/2533304/07/2531304/08/2516 NA 143 143 [...] the last 72 hours. CBC: Recent Labs 04/06/2533304/07/2531304/08/257 04/08/25 1654 WBC 10.3 11.5* 13.0* -- HGB 7.6* 7.4* 7.2* 8.6* HCT 27.2* 27.2* 25.9* -- PLT 344 346 314 -- MCV 78.6 80.0 80.2 -- RDW 20.5* 20.5* 21.1* -- ABGs: Recent Labs 04/08/25 1654 PHART 7.296* [id number] 80.1* PO2ART 92.0 MYQ0VQF 38.2* [id number] Nasal Cannula (LPM) Lactic Acid: No results [...] Place garcía, strict I/O's, no indication for HEAD ORTHOPEDIC TEAM PHYSICIAN at this time (would be a poor [...] care of himself. -Consider medication for mood? -Office Machine Servicer Apprentice support requested. -Monitor. Hx CKD III -CrCl [...] detailed in the note above. Bela Agustin, COACH PROFESSIONAL [employer] Palliative Care Assessments: Goals of care: Continue [...] fully addressed Living status: alone Work history: GM status: No Congregation: No islam on file ROS: See palliative care ROS/ESAS below; All other systems were reviewed and are negative. [place] Symptom Assessment Score [place] Score Pain Score (if non-verbal, add .FLACC [...] Kim Nieves MD Consult ordered by: Albaro Elizabeth MD CONSULT QUESTION: Severe anemia HISTORY OF [...] 2024, has a son who lives in [place] and daughter that lives close by Retired from working at [employer] for 43 years No tobacco use Denies [...] mg 650 mg Oral q6h PRN Albaro Elizabeth MD Or acetaminophen (Tylenol) suppository 650 mg 650 mg Rectal q6h PRN Albaro Elizabeth MD atorvastatin (Lipitor) tablet 20 mg 20 mg Oral Nightly Cari Scherer MD carvedilol (Coreg) tablet 3.125 mg 3.125 mg Oral BID WC Cari Scherer MD furosemide (Lasix) injection 20 mg 20 mg IntraVENous PRN Albaro Elizabeth MD 20 mg at 07/28/25 2255 furosemide (Lasix) injection 40 mg 40 mg IntraVENous BID Albaro Elizabeth MD 40 mg at 04/06/25 1017 hydrALAZINE [...] mg 4 mg Oral q8h PRN Albaro Elizabeth MD Or ondansetron (Zofran) injection 4 mg 4 mg IntraVENous q6h PRN Albaro Elizabeth MD pantoprazole (ProtoNix) EC tablet 40 mg 40 mg Oral qAM AC Albaro Elizabeth MD 40 mg at 04/06/25 1017 polyethylene glycol (PEG) 3350 (Miralax) packet 17 g 17 g Oral Daily PRN Albaro Elizabeth MD sodium chloride 0.9 % infusion 250 mL/hr IntraVENous PRN Albaro Elizabeth MD [5] No Known Allergies Associated Order(s): IP CONSULT TO CARDIOLOGY [facility] Cardiology Consult Note Reason for Consult/Chief Complaint: [...] daily Consider palliative approach Cari Scherer MD, [facility] DATE of SERVICE: 04/06/2025 [1] History reviewed. No pertinent past medical history. [2] History reviewed. No pertinent surgical history. [3] No family history on file. [4] [5] furosemide, 40 mg, IntraVENous, BID iron sucrose, 200 mg, IntraVENous, q24h pantoprazole, 40 mg, Oral, qAM AC documented in this encounter [facility] 04-13-2025 Hospital Discharg e instructions LOURDES Cervantes CNP - 04/13/2025 12:17 PM EDT Please call [facility] at [phone] to arrange for home NIV once stable to discharge from nursing facility China Vogel RN - 04/13/2025 12:38 PM EDT Images from the original note were not included. Continuity of Care Form Patient Name: Mary Charles : 1935 Admit date: 04/05/2025 Discharge date: 04/17/2025 Code Status Order: Full Code Advance Directives: N Admitting Physician: Albaro Elizabeth MD PCP: No primary care provider on file. Discharging Nurse: China Vogel RN Discharging Hospital Unit/Room#: B2-268/B2-268 B Discharging Unit Emergency Contact: Extended Emergency Contact Information Primary Emergency Contact: ANAHY CHARLES Mobile Relation: Daughter Preferred language: Nigerian Budget Assistant needed? No Past Surgical History: History reviewed. [...] Minimal assistance Toileting Total assistance Feeding Independent Business Banking Sales Assistant Minimal assistance Med Delivery yes Wound Care [...] dressing 04/11/251999 Multiple Puncture Sites No 04/11/25 08 Number of days: 3 Elimination: Continence: Bowel: [...] Status Date: Discharging to Facility/ Agency Name: [facility] Address:[address] [place] [address] Phone:[phone] Dialysis Facility (if applicable) Name: Address: Dialysis Schedule: Phone: Fax: Nursing Home Admissions Director/Hiv/Aids Care Nurse signature: ICIAN SECTION Name: Mary Charles Prognosis: [...] to a nursing facility directly from an [facility] or a unit of a [facility] that is not operated by or licensed by [facility] under section 5119.14 or 5160-3-15.1 5 The individual requires the level of services provided by a nursing facility for the condition for which he or she was treated in the hospital and, Physician Certification: I certify the above information and transfer of Mary Charles is necessary for the continuing treatment of the diagnosis listed and that he requires retirement facility for less than 30 days. Update Admission H&P: No change in H&P PHYSICIAN SIGNATURE: documented in this encounter [facility] 04-09-2025 Note [facility] 04-09-2025 Procedure note Associated Ord er(s): Thoracentesis Post-Procedure Diagnose(s): Acute congestive heart failure, unspecified heart failure type (HCC) Images from the original note were not included. Thoracentesis Date/Time: 04/09/2025 3:57 PM Performed by: Precious Torres MD Authorized by: Precious Torres MD Consent: The indications, risks, benefits, alternatives [...] Date/Time: 04/09/2025 9:07 AM Performed by: Precious Torres MD Authorized by: Precious Torres MD Consent: The indications, risks, benefits, alternatives [...] procedure note documented in this encounter [facility] 04-09-2025 Note [facility] 04-05-2025 Note [facility] 04-05-2025 History and physical note Attending [...] infusion, 250 mL/hr, IntraVENous, PRN, Rowena Aguilar, No current outpatient medications on file. [5] No Known Allergies documented in this encounter [facility] note Diagnosis Acute congestive heart failure, unspecified heart failure type (HCC)- Primary Acute congestive heart failure, unspecified heart failure type (HCC) Anemia, unspecified type Shortness of breath Hypoxia Hypoxemia CHF (congestive heart failure), NYHA class I, acute on chronic, combined (HCC) [facility] Diagnosis Acute congestive heart failure, unspecified heart failure type (HCC)- Primary [facility] Diagnosis Chronic systolic heart failure (HCC)- Primary Chronic systolic heart failure 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 Pleural effusion Unspecified pleural effusion Acute kidney injury superimposed on chronic kidney disease (HCC) (HCC) 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 chronic kidney disease (HCC) PAC (premature atrial contraction) Supraventricular premature beats Abnormal CAT scan Other nonspecific (abnormal) findings on radiological and other examinations of body structure [facility] Diagnosis Chronic systolic heart failure (HCC)- Primary Chronic systolic heart failure 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 Pleural effusion Unspecified [...] Debility Unspecified debility [facility] Diagnosis Chronic systolic heart failure (HCC)- Primary Chronic systolic heart failure 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 Pleural effusion Unspecified pleural effusion Acute kidney injury superimposed on chronic kidney disease 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 chronic kidney disease (CMS/HCC) PAC (premature atrial contraction) Supraventricular premature beats Abnormal CAT scan Other nonspecific (abnormal) findings on radiological and other examinations of body structure Chronic systolic heart failure (HCC)- Primary Chronic systolic heart failure documented [facility] Diagnosis Chronic systolic heart failure (HCC)- Primary Chronic systolic heart failure 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 Pleural effusion Unspecified pleural effusion Acute kidney injury superimposed on chronic kidney disease 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 chronic kidney disease (CMS/HCC) PAC (premature atrial contraction) Supraventricular premature beats Abnormal CAT scan Other nonspecific (abnormal) findings on radiological and other examinations of body structure Anemia due to chronic kidney disease, unspecified CKD stage- Primary documented in this encounter [facility] Chief Complaint and Reason for Visit [...] heart failure type (HCC) Procedures .. Albaro Elizabeth MD [address] [place] [address] Phone: tel: fax: [facility] Cardiac Progressive Care Unit [address] [place] [address] Phone: tel: Referral ID Status Reason Start Date Expiration Date Visits Re quested Visits Authorized Reason Comments Hospital Follow-up Congestive Heart Failure [...] RN) 2105 (Given - Provider: Lynne Calzada, LUCIA) furosemide (Lasix) injection 80 mg (CANCELED) 80 mg, IntraVENous, 2 times daily, First dose on Sat04/14/25 at 1230, Hold if systolic blood pressure less than 90 or diastolic blood pressure less than 60, heart rate less than 60 0914 (Given - Provider: Kourtney Jordan RN)2023 (Given - Provider: Jose Tinoco RN) hydrALAZINE (Apresoline) tablet 10 mg 10 mg, Oral, 3 times daily, First dose (after last modification) on Sat04/15/25 at 0900, Hold for systolic less than 110, On hold since Sat04/17/2025 at 0739 until manually unheld 09 (Not Given - Provider: Kourtney Jordan RN - Reason: Order parameters not met)1533 (Not Given - Provider: Kourtney Jordan RN - Reason: Order parameters not met)2000 (Not Given - Provider: Jose Tinoco RN - Reason: Order parameters not met - Comment: BP 95/58) 0836 (Given - Provider: Danielle Fu RN)1402 (Not Given - Provider: Danielle Fu RN - Reason: Order parameters not met)2104 (Not Given - Provider: Lynne Calzada RN - Reason: Other - Comment: low BP) 0739 (Held by provider - Provider: Albaro Elizabeth MD - Reason: Other)0900 (Dose Auto Held - Provider: Albaro Elizabeth MD)1551 (Unheld by provider - Provider: Automatic [...] 1630 0914 (Given - Provider: Kourtney Jordan, LUCIA) 0836 (Given - Provider: Danielle Fu, LUCIA) 0854 (Given - Provider: China Vogel RN) torsemide (Demadex) tablet 40 mg 40 mg, Oral, Daily, First dose (after last reorder) on Sat04/16/25 at 0900 0835 (Given - Provider: Danielle Fu RN) 0854 (Given - Provider: China Vogel RN) PRN Medication Order 04/15/2025 04/16/2025 04/17/2025 acetaminophen [...] sedation for opioid reversal - MUST notify circular sawyer stone provider immediately after first dose, may give [...] Care Teams (unrecognized sec tion and content) Soft Tile Setter Relationship Specialty Start Date End Date Aliya Tadeo RN Network Field Engineer Manager 04/09/25 Soft Tile Setter Relationship Specialty Start Date End Date Aliya Tadeo RN Network Field Engineer Manager 04/09/25 Soft Tile Setter Relationship Specialty Start Date End Date Aliya Tadeo RN Registered Nurse Network Field Engineer Manager 04/09/25 Soft Tile Setter Relationship Specialty Start Date End Date Aliya Tadeo RN Registered Nurse Network Field Engineer Manager 04/09/25 Soft Tile Setter Relationship Specialty Start Date End Date Aliya Tadeo RN Registered Nurse Network Field Engineer Manager 04/09/25 Soft Tile Setter Relationship Specialty Start Date End Date Aliya Tadeo RN Registered Nurse Network Field Engineer Manager 04/09/25 (unrecognized sect ion and content) No Status Records FoundNo Status Records Found INFORMATION SOURCE (unrecogn ized section and content) DATE CREATED AUTHOR 07/02/2025 [facility] DATE CREATED AUTHOR AUTHOR'S KIYA TROTTER 07/05/2025 [facility] FOR RECORDS PERTAINING TO PATIENTS WHO ARE [...] BE BASED ON THE PRIMARY CLINICAL RECORDS. [employer] [facility]. provides no warranty or guarantee of the accuracy or completeness of information in this document.
[2025-07-07 08:50] LABS: Hematocrit 23.3 % (40-54); Hemoglobin 7.3 g/dL (13.0-16.5)
[2025-07-07 09:18] LABS: FOLATES,SERUM (FOLIC ACID) 8.25 ng/mL (4.60-34.80)
[2025-07-07 09:23] LABS: Iron 27 ug/dL (65-175); Iron Binding Capacity,Total 278 ug/dL (250-450); Iron Binding Capacity,Unsat 251 ug/dL (228-428); Vitamin B12 334 pg/mL (180-914)
== END ==
LOC: OLS.ACH2 05:00
PROVIDERS: PCP Internal Medicine; Visit Provider Internal Medicine
DX: D63.1 Anemia in chronic kidney disease (principal); N18.9 Chronic kidney disease, unspecified
CPT/HCPCS: 36415; 82607; 82746; 83540; 83550; 85014; 85018

== ENCOUNTER → 2025-07-19 05:00 | Outpatient (REF) | payer MEDICARE, SELFPAY ==
--- OUTSIDE RECORDS SUMMARY | 2025-07-19 04:23 | XMS RPT_ITS | CCD ---
Author Organization [facility] Care Team Providers Care Certified Personal Chef Name Role Phone Carlyle MYERS, Aliya Unavailable Unavailable GOMBASH, SAGAR Ortiz Attending Unavailable SAMAD, EBER Attending Unavailable KRAYNICK, ALEJANDRO Attending Unavailable SAMAD, EBER Attending Unavailable CLARA, ALBARO Admitting Unavailable CLARA, ALBARO Attending Unavailable ASSAAD, PRECIOUS Consulting Unavailable Deperro OLS, Spencer Attending Unavailable Ghourbrial, Negro Primary Care Unavailable Ghourbrial, Negro Primary Care Unavailable Deperro OLS, Spencer Attending Unavailable Ghourbrial, [facility] Primary Care Unavailable Deperro OLS, Spencer Attending Unavailable Deperro OLS, Spencer Attending Unavailable Ghourbrial, Negro Primary Care Unavailable Deperro OLS, Spencer Attending Unavailable Deperro OLS, Spencer Referring Unavailable Ghourbrial, Negro Primary Care Unavailable Unavailable Unavailable Unavailable Medications Current Medications Medication Drug Class(es) Dates Sig (Normalized) Sig (Original) atorvastatin 20 mg oral tablet (13 sources) HMG-CoA Reductase Inhibitor Start: 04-17-2025 End: 04-17-2026 take 1 tablet by mouth once daily atorvastatin (Lipitor) 20 MG tablet Take 1 tablet (20 mg) by mouth Nightly. 30 tablet 1 04/17/2025 04/17/2026 Active Start: 04-06-2025 End: 04-17-2025 docusate sodium 50 mg / sennosides, assisted 8.6 mg oral tablet (13 sources) Start: 04-17-2025 End: 04-17-2026 take 2 tablets by mouth twice daily senna-docusate sodium (Senokot-S) 8.6-50 MG tablet Take 2 tablets by mouth 2 times daily. 120 tablet 11 04/17/2025 04/17/2026 Active Start: 04-10-2025 End: 04-17-2026 24 hr metoprolol succinate 25 mg extended release oral tablet (13 sources) beta-Adrenergic Adán Start: 04-10-2025 End: 04-18-2026 take 1 tablet by mouth once daily metoprolol succinate XL (Toprol-XL) 25 MG 24 hr tablet Take 1 tablet (25 mg) by mouth daily. Do not crush or chew. 30 tablet 11 04/18/2025 04/18/2026 Active torsemide (13 sources) Loop Diuretic Start: 04-18-2025 End: 04-18-2026 [...] Start: 04-05-2025 End: 04-06-2025 polyethylene glycol 3350 26142 mg powder for oral solution (4 sources) [...] in 24 hours. [Order 2 End] Problems Active Problems Problem Classification Problem Date Documented Da te Episodic/Chronic Acute and unspecified renal failure (11 sources) Acute renal failure syndrome; Translations: [Acute kidney failure, unspecified] Onset: 05-03-2025 05-03-2025 Episodic Cardiac dysrhythmias (11 sources) Premature atrial contraction; Translations: [Atrial premature depolarization] Onset: 05-03-2025 05-03-2025 Chronic Chronic kidney disease (4 sources) Anemia in chronic kidney disease; Translations: [Chronic kidney disease, unspecified] Onset: 05-03-2025 06-22-2025 Chronic Chronic kidney disease (3 sources) Chronic kidney disease; Translations: [Chronic kidney disease, stage 3b (HCC)] Onset: 05-03-2025 Congestive heart failure; nonhypertensive (20 sources) Acute congestive heart failure; Translations: [Heart failure, unspecified] Onset: 04-05-2025 04-05-2025 Chronic Coronary atherosclerosis and other heart disease (11 sources) Coronary arteriosclerosis; Translations: [Atherosclerotic heart disease of [place] coronary artery without angina pectoris] Onset: 05-03-2025 05-03-2025 Chronic Deficiency and other anemia (9 sources) Anemia co-occurrent and due to chronic kidney disease stage 3; Translations: [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 chronic kidney disease (HCC)] Onset: 05-03-2025 05-03-2025 Chronic Deficiency and other anemia (3 sources) Anemia in chronic kidney disease; Translations: [Anemia in chronic kidney disease] Onset: 05-03-2025 Chronic Deficiency and other anemia (2 sources) Anemia; Translations: [Anemia, unspecified] 04-05-2025 Episodic Deficiency and other anemia (1 source) Nutritional anemia, unspecified; Translations: [Nutritional anemia, unspecified] Onset: 07-16-2025 Episodic Diverticulosis and diverticulitis (1 source) Diverticulosis of intestine, part unspecified, without perforation or abscess without bleeding; Translations: [Diverticulosis of intestine, part unspecified, without perforation or abscess without bleeding] Onset: 07-13-2025 Chronic Malaise and fatigue (1 source) Asthenia; Translations: [Other malaise] 05-12-2025 Episodic Other aftercare (1 source) Patient encounter status; Translations: [Encounter for palliative care] 05-12-2025 Episodic Other lower respiratory disease (2 sources) Hypoxia; Translations: [Hypoxemia] 04-05-2025 Episodic Other screening for suspected conditions (not mental disorders or infectious disease) (11 sources) Computed tomography result abnormal; Translations: [Abnormal findings on diagnostic imaging of other specified body structures] Onset: 05-03-2025 05-03-2025 Chronic Pleurisy; pneumothorax; pulmonary collapse (12 sources) Pleural effusion; Translations: [Pleural effusion, not elsewhere classified] Onset: 05-03-2025 05-03-2025 Episodic Past or Other Problems Problem Classification Problem Date Documented Da te Episodic/Chronic Deficiency and other anemia (2 sources) Anemia, unspecified; Translations: [Anemia, unspecified] Onset: 04-05-2025 Episodic Other lower respiratory disease (3 sources) Dyspnea; Translations: [Shortness of breath] Onset: 04-05-2025 04-05-2025 Episodic Other lower respiratory disease (1 source) Shortness of breath; Translations: [Shortness of breath] Onset: 04-05-2025 Episodic Other lower respiratory disease (2 sources) Hypoxemia; Translations: [Hypoxemia] Onset: 04-05-2025 Episodic Results Test Name Value Interpretation Reference Range Facility Progress Noteon 07-15-2025 Progress Note Normal [facility] 36on 07-14-2025 36 Faxed signed order t o [facility] fax#[phone], and scanned to Media. Normal [facility] [address] Hess[address] faxed order to discontinue Hydralazine, and Spironolactone. Placed on nurses desk to have Dr. Hess sign it. Normal [facility] 36on 07-07-2025 36 Darby called back t o verify the diuretic instructions; she had the Lasix written down, so I verified that it was actually torsemide. She verbalized understanding and was thankful for the call. Normal [facility] 36 Normal [facility] Folates,Serum (Folic Acid)on 07-07-2025 FOLATES,SERUM 8.25 ng/mL Normal 4.60-34.[address] [facility] Comment on above: Order Comment: 542-1 N Performed By: #### L 506.0200, L100.0600, L503.0106, L503.6030 #### [facility] [address] [place], [address] HH, Hemoglobin AND Hematocri ton 07-07-2025 Hematocrit (Bld) [Volume fraction] 23.3 % Low 40-[address] [facility] Comment on above: Order Comment: 542-1 Performed By: #### L 506.0200, L100.0600, L503.0106, L503.6030 #### [facility] [address] [place], [address] Hemoglobin (Bld) [Mass/Vol] 7.3 g/dL Low 13.0-16.[address] [facility] Comment on above: Order Comment: 542-1 Performed By: #### L 506.0200, L100.0600, L503.0106, L503.6030 #### [facility] [address] [place], [address] Iron+Iron Binding Capacityon 07-07-2025 Iron [Mass/Vol] 27 ug/dL Low 65-[address] [facility] Comment on above: Order Comment: 542-1 Performed By: #### L 506.0200, L100.0600, L503.0106, L503.6030 #### [facility] [address] [place], [address] IRON SATURATION 9.6 Normal 9-[address] [facility] Comment on above: Order Comment: 542-1 Performed By: #### L 506.0200, L100.0600, L503.0106, L503.6030 #### [facility] [address] [place], [address] TIBC 278 ug/dL Normal 250-[address] [facility] Comment on above: Order Comment: 542-1 Performed By: #### L 506.0200, L100.0600, L503.0106, L503.6030 #### [facility] [address] [place], [address] UIBC 251 ug/dL Normal 228-[address] [facility] Comment on above: Order Comment: 542-1 Performed By: #### L 506.0200, L100.0600, L503.0106, L503.6030 #### [facility] [address] [place], [address] Vitamin B12on 07-07-2025 Cobalamin (Vitamin B12) [Mass/Vol] 334 pg/mL Normal 180-[address] [facility] Comment on above: Order Comment: 542-1 Performed By: #### L 506.0200, L100.0600, L503.0106, L503.6030 #### [facility] [address] [place], [address] 36on 07-06-2025 36 Cr 1.9, K+ 3.7, hemoglobin 7.1 on 07/05/25. BP's mostly 100-110's/50/60's; one SBP outlier of 94, one outlier of 121. HR's 60-70's. Note from nursing: Normal [facility] 36 [facility] faxed 07/05/25 BMP, and CBC, and vitals. Records to be scanned to chart. Normal [facility] 36 Normal [facility] Basic Metabolic Profile (BMP )on 07-05-2025 BUN/CRE 20.8 RATIO High 06-[address] [facility] Comment on above: Order Comment: 542 Performed By: #### L 100.0500, L500.2500 #### [facility] [address] [place], [address] Calcium [Mass/Vol] 8.5 mg/dL Normal 7.6-11.0 [facility] Comment on above: Order Comment: 542 Performed By: #### L 100.0500, L500.2500 #### [facility] [address] [place], [address] Chloride [Moles/Vol] 101 mmol/L Normal 98-108 [facility] Comment on above: Order Comment: 542 Performed By: #### L 100.0500, L500.2500 #### [facility] [address] [place], [address] CO2 [Moles/Vol] 28.6 mmol/L Normal 21.0-32.[address] [facility] Comment on above: Order Comment: 542 Performed By: #### L 100.0500, L500.2500 #### [facility] [address] [place], [address] Creatinine [Mass/Vol] 1.90 mg/dL High 0.70-1.20 [facility] Comment on above: Order Comment: 542 Performed By: #### L 100.0500, L500.2500 #### [facility] [address] [place], [address] GAP 10 Normal 5-[address] [facility] Comment on above: Order Comment: 542 Performed By: #### L 100.0500, L500.2500 #### [facility] [address] [place], [address] GFR/1.73 sq M.predicted among non-blacks MDRD (S/P/Bld) [Vol rate/Area] 33 mL/min/{1.73_m2} Low >[address] [facility] Comment on above: Order Comment: 542 Result Comment: mL/m in/1.73m2 CKD-EPI Creatinine Equation (2020) Performed By: #### L 100.0500, L500.2500 #### [facility] [address] [place], [address] Glucose [Mass/Vol] 92 mg/dL Normal 70-99 [facility] Comment on above: Order Comment: 542 Performed By: #### L 100.0500, L500.2500 #### [facility] [address] [place], [address] Potassium [Moles/Vol] 3.7 mmol/L Normal 3.3-5.1 [facility] Comment on above: Order Comment: 542 Performed By: #### L 100.0500, L500.2500 #### [facility] [address] [place], [address] Sodium [Moles/Vol] 140 mmol/L Normal 133-145 [facility] Comment on above: Order Comment: 542 Performed By: #### L 100.0500, L500.2500 #### [facility] [address] [place], [address] Urea nitrogen [Mass/Vol] 40 mg/dL High 4-[address] [facility] Comment on above: Order Comment: 542 Performed By: #### L 100.0500, L500.2500 #### [facility] [address] [place], [address] CBC-Complete Blood Cnt No Di ffon 07-05-2025 Erythrocyte distribution width (RBC) [Ratio] 14.8 % High 11.6-14.[address] [facility] Comment on above: Order Comment: 542 Performed By: #### L 100.0500, L500.2500 #### [facility] [address] [place], [address] Hematocrit (Bld) [Volume fraction] 23.2 % Low 40-[address] [facility] Comment on above: Order Comment: 542 Performed By: #### L 100.0500, L500.2500 #### [facility] [address] [place], [address] Hemoglobin (Bld) [Mass/Vol] 7.1 g/dL Low 13.0-16.[address] [facility] Comment on above: Order Comment: 542 Performed By: #### L 100.0500, L500.2500 #### [facility] [address] [place], [address] MCH (RBC) [Entitic mass] 28.9 pg Normal 27.0-32.[address] [facility] Comment on above: Order Comment: 542 Performed By: #### L 100.0500, L500.2500 #### [facility] [address] [place], [address] MCHC (RBC) [Mass/Vol] 30.6 g/dL Low 32-36 [facility] Comment on above: Order Comment: 542 Performed By: #### L 100.0500, L500.2500 #### [facility] [address] [place], [address] MCV (RBC) [Entitic vol] 94.3 fL High 80-[address] [facility] Comment on above: Order Comment: 542 Performed By: #### L 100.0500, L500.2500 #### [facility] [address] [place], [address] Platelet mean volume (Bld) [Entitic vol] 8.8 fL Normal 6.2-12.[address] [facility] Comment on above: Order Comment: 542 Performed By: #### L 100.0500, L500.2500 #### [facility] [address] [place], [address] Platelets (Bld) [#/Vol] 507 10*3/uL High 150-[address] [facility] Comment on above: Order Comment: 542 Performed By: #### L 100.0500, L500.2500 #### [facility] [address] [place], [address] RBC (Bld) [#/Vol] 2.46 10*6/uL Low 4.6-6.2 [facility] Comment on above: Order Comment: 542 Performed By: #### L 100.0500, L500.2500 #### [facility] [address] [place], [address] RDW SD 49.7 fl High 35.1-43.[address] [facility] Comment on above: Order Comment: 542 Performed By: #### L 100.0500, L500.2500 #### [facility] [address] [place], [address] WBC (Bld) [#/Vol] 12.0 10*3/uL High 4.4-11.0 [facility] Comment on above: Order Comment: 542 Performed By: #### L 100.0500, L500.2500 #### [facility] [address] [place], [address] Progress Noteon 06-30-2025 Progress Note Normal [facility] Basic Metabolic Profile (BMP )on 06-28-2025 BUN/CRE 23.4 RATIO High 06-[address] [facility] Comment on above: Order Comment: 212.1 Performed By: #### L 500.2500 #### [facility] [address] [place], [address] Calcium [Mass/Vol] 8.4 mg/dL Normal 7.6-11.0 [facility] Comment on above: Order Comment: 212.1 Performed By: #### L 500.2500 #### [facility] [address] [place], [address] Chloride [Moles/Vol] 100 mmol/L Normal 98-108 [facility] Comment on above: Order Comment: 212.1 Performed By: #### L 500.2500 #### [facility] [address] [place], [address] CO2 [Moles/Vol] 27.4 mmol/L Normal 21.0-32.[address] [facility] Comment on above: Order Comment: 212.1 Performed By: #### L 500.2500 #### [facility] [address] [place], [address] Creatinine [Mass/Vol] 1.72 mg/dL High 0.70-1.20 [facility] Comment on above: Order Comment: 212.1 Performed By: #### L 500.2500 #### [facility] [address] [place], [address] GAP 10 Normal 5-[address] [facility] Comment on above: Order Comment: 212.1 Performed By: #### L 500.2500 #### [facility] [address] [place], [address] GFR/1.73 sq M.predicted among non-blacks MDRD (S/P/Bld) [Vol rate/Area] 38 mL/min/{1.73_m2} Low >[address] [facility] Comment on above: Order Comment: 212.1 Result Comment: mL/m in/1.73m2 CKD-EPI Creatinine Equation (2020) Performed By: #### L 500.2500 #### [facility] [address] [place], [address] Glucose [Mass/Vol] 88 mg/dL Normal 70-99 [facility] Comment on above: Order Comment: 212.1 Performed By: #### L 500.2500 #### [facility] [address] [place], [address] Potassium [Moles/Vol] 3.9 mmol/L Normal 3.3-5.1 [facility] Comment on above: Order Comment: 212.1 Performed By: #### L 500.2500 #### [facility] [address] [place], [address] Sodium [Moles/Vol] 137 mmol/L Normal 133-145 [facility] Comment on above: Order Comment: 212.1 Performed By: #### L 500.2500 #### [facility] [address] [place], [address] Urea nitrogen [Mass/Vol] 40 mg/dL High 4-[address] [facility] Comment on above: Order Comment: 212.1 Performed By: #### L 500.2500 #### [facility] [address] [place], [address] 36on 06-24-2025 36 Normal [facility] 36 Normal [facility] 36 06/24/25 BMP, blood pressure, pulse summary, and medication notes faxed from [facility]. Records scanned to Media. Normal [facility] Basic Metabolic Profile (BMP )on 06-24-2025 BUN/CRE 25.8 RATIO High 10-[address] [facility] Comment on above: Order Comment: 212.1 Performed By: #### L 500.2500 #### [facility] [address] [place], [address] Calcium [Mass/Vol] 8.4 mg/dL Normal 7.6-11.0 [facility] Comment on above: Order Comment: 212.1 Performed By: #### L 500.2500 #### [facility] [address] [place], [address] Chloride [Moles/Vol] 97 mmol/L Low 98-108 [facility] Comment on above: Order Comment: 212.1 Performed By: #### L 500.2500 #### [facility] [address] [place], [address] CO2 [Moles/Vol] 26.9 mmol/L Normal 21.0-32.[address] [facility] Comment on above: Order Comment: 212.1 Performed By: #### L 500.2500 #### [facility] [address] [place], [address] Creatinine [Mass/Vol] 1.80 mg/dL High 0.70-1.20 [facility] Comment on above: Order Comment: 212.1 Performed By: #### L 500.2500 #### [facility] [address] [place], [address] GAP 12 Normal 5-[address] [facility] Comment on above: Order Comment: 212.1 Performed By: #### L 500.2500 #### [facility] [address] [place], [address] GFR/1.73 sq M.predicted among non-blacks MDRD (S/P/Bld) [Vol rate/Area] 36 mL/min/{1.73_m2} Low >[address] [facility] Comment on above: Order Comment: 212.1 Result Comment: mL/m in/1.73m2 CKD-EPI Creatinine Equation (2020) Performed By: #### L 500.2500 #### [facility] [address] [place], [address] Glucose [Mass/Vol] 87 mg/dL Normal 70-99 [facility] Comment on above: Order Comment: 212.1 Performed By: #### L 500.2500 #### [facility] [address] [place], [address] Potassium [Moles/Vol] 3.8 mmol/L Normal 3.3-5.1 [facility] Comment on above: Order Comment: 212.1 Performed By: #### L 500.2500 #### [facility] [address] [place], [address] Sodium [Moles/Vol] 137 mmol/L Normal 133-145 [facility] Comment on above: Order Comment: 212.1 Performed By: #### L 500.2500 #### [facility] [address] [place], [address] Urea nitrogen [Mass/Vol] 47 mg/dL High 4-[address] [facility] Comment on above: Order Comment: 212.1 Performed By: #### L 500.2500 #### [facility] [address] [place], [address] Progress Noteon 06-24-2025 Progress Note Attempted to meet with pt. He no longer resides here. Facility uncertain where he has moved to. Message left on primary contacts navjot Cbua to return call to the palliative group at [phone] Normal [facility] BASIC METABOLIC PANELon 10-1 Anion gap [Moles/Vol] 15 mmol/L High 3-13 [facility] Comment on above: Performed By: #### L AB15 ####Ethyl Blender: UNA ARCE ([id number])[facility] [place] ([facility])[address] Calcium [Mass/Vol] 8.4 mg/dL Low 8.8-10.0 [facility] Comment on above: Performed By: #### L AB15 ####Ethyl Blender: UNA ARCE ([id number])[facility] [place] ([facility])[address] Chloride [Moles/Vol] 97 mmol/L Low 98-107 [facility] Comment on above: Performed By: #### L AB15 ####Ethyl Blender: UNA ARCE ([id number])[facility] [place] ([facility])[address] CO2 [Moles/Vol] 25 mmol/L Normal 23-31 [facility] Comment on above: Performed By: #### L AB15 ####Ethyl Blender: UNA ARCE ([id number])[facility] [place] ([facility])[address] Creatinine [Mass/Vol] 1.97 mg/dL High 0.72-1.25 [facility] Comment on above: Performed By: #### L AB15 ####Ethyl Blender: UNA ARCE ([id number])[facility] [place] ([facility])[address] [place] [address] [place] GLOMERULAR FILTRATION RATE ML/MIN/1.73 SQ M.PREDICTED 31.9 mL/min/1.73m*2 Low >60.0 [facility] Comment on above: Result Comment: Calc ulation based on the Chronic Kidney Disease Epidemiology Collaboration (CKD-EPI) equation refit without adjustment for race Performed By: #### L AB15 ####Ethyl Blender: UNA ARCE ([id number])[facility] ([facility])[address] Glucose [Mass/Vol] 108 mg/dL Normal 82-115 [facility] Comment on above: Performed By: #### L AB15 ####Ethyl Blender: UNA ARCE ([id number])[facility] ([facility])[address] Potassium [Moles/Vol] 4.1 mmol/L Normal 3.5-5.1 [facility] Comment on above: Result Comment: [facility] potassium values may be up to 0.5 mmol/L lower than serum values. Performed By: #### L AB15 ####Ethyl Blender: UNA ARCE ([id number])[facility] ([facility])[address] Sodium [Moles/Vol] 137 mmol/L Normal 136-145 [facility] Comment on above: Performed By: #### L AB15 ####Ethyl Blender: UNA ARCE ([id number])[facility] ([facility]AB)[address] Urea nitrogen [Mass/Vol] 51 mg/dL High 9-23 [facility] Comment on above: Performed By: #### L AB15 ####Ethyl Blender: UNA ARCE ([id number])[facility] ([facility])[address] BLOOD TYPE AND SCREEN GELon 06-21-2025 ABO GROUPING A Normal [facility] Comment on above: Performed By: #### L AB276 ####Ethyl Blender: UNA ARCE ([id number])[facility] ([facility])[address] RH TYPE IN BLOOD Negative Normal [facility] Comment on above: Performed By: #### L AB276 ####Ethyl Blender: UNA ARCE ([id number])[facility] ([facility])[address] [facility], [place] [id number] [place] [address] Basic Metabolic Profile (BMP )on 06-21-2025 BUN/CRE 25.4 RATIO High 10-[address] [facility] Comment on above: Order Comment: 212.1 Performed By: #### L 100.0500, L500.2500 #### [facility] [address] [place], [address] Calcium [Mass/Vol] 8.4 mg/dL Normal 7.6-11.0 [facility] Comment on above: Order Comment: 212.1 Performed By: #### L 100.0500, L500.2500 #### [facility] [address] [place], [address] Chloride [Moles/Vol] 97 mmol/L Low 98-108 [facility] Comment on above: Order Comment: 212.1 Performed By: #### L 100.0500, L500.2500 #### [facility] [address] [place], [address] CO2 [Moles/Vol] 29.6 mmol/L Normal 21.0-32.[address] [facility] Comment on above: Order Comment: 212.1 Performed By: #### L 100.0500, L500.2500 #### [facility] [address] [place], [address] Creatinine [Mass/Vol] 1.86 mg/dL High 0.70-1.20 [facility] Comment on above: Order Comment: 212.1 Performed By: #### L 100.0500, L500.2500 #### [facility] [address] [place], [address] GAP 10 Normal 5-[address] [facility] Comment on above: Order Comment: 212.1 Performed By: #### L 100.0500, L500.2500 #### [facility] [address] [place], [address] GFR/1.73 sq M.predicted among non-blacks MDRD (S/P/Bld) [Vol rate/Area] 34 mL/min/{1.73_m2} Low >[address] [facility] Comment on above: Order Comment: 212.1 Result Comment: mL/m in/1.73m2 CKD-EPI Creatinine Equation (2020) Performed By: #### L 100.0500, L500.2500 #### [facility] [address] [place], [address] Glucose [Mass/Vol] 93 mg/dL Normal 70-99 [facility] Comment on above: Order Comment: 212.1 Performed By: #### L 100.0500, L500.2500 #### [facility] [address] [place], [address] Potassium [Moles/Vol] 3.8 mmol/L Normal 3.3-5.1 [facility] Comment on above: Order Comment: 212.1 Performed By: #### L 100.0500, L500.2500 #### [facility] [address] [place], [address] Sodium [Moles/Vol] 136 mmol/L Normal 133-145 [facility] Comment on above: Order Comment: 212.1 Performed By: #### L 100.0500, L500.2500 #### [facility] [address] [place], [address] Urea nitrogen [Mass/Vol] 47 mg/dL High 4-[address] [facility] Comment on above: Order Comment: 212.1 Performed By: #### L 100.0500, L500.2500 #### [facility] [address] [place], [address] Basic metabolic 1998 panelon 06-21-2025 Anion gap [Moles/Vol] 15 mmol/L High 3 - 13 mmol/L [facility] Calcium [Mass/Vol] 8.4 mg/dL Low 8.8 - 10. 0 mg/dL [facility] Chloride [Moles/Vol] 97 mmol/L Low 98 - 10 7 mmol/L [facility] CO2 [Moles/Vol] 25 mmol/L 23 - 31 mmol/L [facility] Creatinine [Mass/Vol] 1.97 mg/dL High 0.72 - 1.25 mg/dL [facility] GFR/1.73 sq M.predicted (S/P/Bld) [Vol rate/Area] 31.9 mL/min Low - PINF [facility] Comment on above: Calculation based on the Chronic Kidney Disease Epidemiology Collaboration (CKD-EPI) equation refit without adjustment for race Glucose [Mass/Vol] 108 mg/dL 82 - 115 mg/dL [facility] Interpretation and review of laboratory results Abnormal [facility] Potassium [Moles/Vol] 4.1 mmol/L 3.5 - 5.1 mmol/L [facility] Comment on above: Plasma potassium traci ues may be up to 0.5 mmol/L lower than serum values. Sodium [Moles/Vol] 137 mmol/L 136 - 145 mmol/L [facility] Urea nitrogen [Mass/Vol] 51 mg/dL High 9 - 23 mg/d L [facility] Blood type and Crossmatch pa valente (Bld)on 06-21-2025 ABO group Nom (Bld) A [facility] Blood group antibody screen GEL Ql Negative [facility] D [facility]l [facility]RBC) [facility] CBC W Auto Differential pane l (Bld)Ordered By: Sallie Powell on 06-21-2025 Erythrocyte distribution width (RBC) [Ratio] 16.7 % High 11.5 - 15.0 % [facility] Hematocrit (Bld) [Volume fraction] 23.3 % Low 40.0 - 52.0 % [facility] Hemoglobin (Bld) [Mass/Vol] 7.4 g/dL Low 13.0 - 18.0 g/dL [facility] Interpretation and review of laboratory results Abnormal [facility] MCH (RBC) [Entitic mass] 29 pg 26. 0 - 34.0 pg [facility] MCHC (RBC) [Mass/Vol] 31.8 % 30.5 - 36.0 % [facility] MCV (RBC) [Entitic vol] 91.4 fL 77.0 - 99.0 fL [facility] Platelet mean volume (Bld) [Entitic vol] 8.5 fL Low 9.0 - 12.7 fL [facility] Platelets (Bld) [#/Vol] 513 10*3/uL High 140 - 440 10*3/uL [facility] RBC (Bld) [#/Vol] 2.55 10*6/uL Low 4.40 - 5.9 0 10*6/uL [facility] WBC (Bld) [#/Vol] 16.8 10*3/uL High 3.6 - 10.7 10*3/uL [facility] CBC WITH AUTO DIFFERENTIALon 06-21-2025 Erythrocyte distribution width (RBC) [Ratio] 16.7 % High 11.5-15.[address] [facility] Comment on above: Performed By: #### L [id number], [id number] ####Ethyl Blender: UNA ARCE ([phone])[facility] ([facility] [place] [address] Hematocrit (Bld) [Volume fraction] 23.3 % Low 40.0-52.0 [facility] Comment on above: Performed By: #### L [id number], [id number] ####Ethyl Blender: UNA ARCE ([phone])[facility] ([facility])[address] [place] [address] Hemoglobin (Bld) [Mass/Vol] 7.4 g/dL Low 13.0-18.0 [facility] Comment on above: Performed By: #### L [id number], [id number] ####Ethyl Blender: UNA ARCE ([phone])[facility] ([facility] [place] [address] MCH (RBC) [Entitic mass] 29.0 pg Normal 26.0-34.0 [facility] Comment on above: Performed By: #### L [id number], [id number] ####Ethyl Blender: UNA ARCE ([phone])[facility] ([facility])[address] [place] [address] MCHC 31.8 % Normal 30.5-36.0 [facility] Comment on above: Performed By: #### L [id number], [id number] ####Ethyl Blender: UNA ARCE ([phone])[facility] [place] (SBHLAB)[address] MCV (RBC) [Entitic vol] 91.4 fL Normal 77.0-99.0 S [facility] Comment on above: Performed By: #### L [id number], [id number] ####Ethyl Blender: UNA ARCE ([phone])[facility] [place] (SBHLAB)[address] Platelet mean volume (Bld) [Entitic vol] 8.5 fL Low 9.0-12.7 [facility] Comment on above: Performed By: #### L [id number], [id number] ####Ethyl Blender: UNA ARCE ([id number])[facility] [place] (SBHLAB)[address] Platelets (Bld) [#/Vol] 513 10*3/uL High 140-440 [facility] Comment on above: Performed By: #### L [id number], [id number] ####Ethyl Blender: UNA ARCE ([phone])[facility] [place] (SBHL[facility])[address] RBC (Bld) [#/Vol] 2.55 10*6/uL Low 4.40-5.90 [facility] Comment on above: Performed By: #### L [id number], [id number] ####Ethyl Blender: UNA ARCE ([id number])[facility] [place] ([facility])[address] [place] [address] [place] WBC (Bld) [#/Vol] 16.8 10*3/uL High 3.6-10.7 [facility] Comment on above: Performed By: #### L [id number], [id number] ####Ethyl Blender: UNA ARCE ([phone])LYNETTE [place] (SBHLAB)[address] CBC-Complete Blood Cnt No Di ffon 06-21-2025 Erythrocyte distribution width (RBC) [Ratio] 16.8 % High 11.6-14.[address] [facility] Comment on above: Order Comment: 212.1 Performed By: #### L 100.0500, L500.2500 #### [facility] [address] [place], [address] Hematocrit (Bld) [Volume fraction] 21.5 % Low 40-[address] [facility] Comment on above: Order Comment: 212.1 Performed By: #### L 100.0500, L500.2500 #### [facility] [address] [place], [address] Hemoglobin (Bld) [Mass/Vol] 6.9 g/dL Low 13.0-16.[address] [facility] Comment on above: Order Comment: 212.1 Performed By: #### L 100.0500, L500.2500 #### [facility] [address] [place], [address] MCH (RBC) [Entitic mass] 28.8 pg Normal 27.0-32.[address] [facility] Comment on above: Order Comment: 212.1 Performed By: #### L 100.0500, L500.2500 #### [facility] [address] [place], [address] MCHC (RBC) [Mass/Vol] 32.1 g/dL Normal 32-36 [facility] Comment on above: Order Comment: 212.1 Performed By: #### L 100.0500, L500.2500 #### [facility] [address] [place], [address] MCV (RBC) [Entitic vol] 89.6 fL Normal 80-[address] [facility] Comment on above: Order Comment: 212.1 Performed By: #### L 100.0500, L500.2500 #### [facility] [address] [place], [address] Platelet mean volume (Bld) [Entitic vol] 8.7 fL Normal 6.2-12.[address] [facility] Comment on above: Order Comment: 212.1 Performed By: #### L 100.0500, L500.2500 #### [facility] [address] [place], [address] Platelets (Bld) [#/Vol] 457 10*3/uL High 150-[address] [facility] Comment on above: Order Comment: 212.1 Performed By: #### L 100.0500, L500.2500 #### [facility] [address] [place], [address] RBC (Bld) [#/Vol] 2.40 10*6/uL Low 4.6-6.2 [facility] Comment on above: Order Comment: 212.1 Performed By: #### L 100.0500, L500.2500 #### [facility] [address] [place], [address] RDW SD 55.8 fl High 35.1-43.[address] [facility] Comment on above: Order Comment: 212.1 Performed By: #### L 100.0500, L500.2500 #### [facility] [address] [place], [address] WBC (Bld) [#/Vol] 14.3 10*3/uL High 4.4-11.0 [facility] Comment on above: Order Comment: 212.1 Performed By: #### L 100.0500, L500.2500 #### [facility] [address] [place], [address] ECG 12-LEADon 06-21-2025 ECG 12-LEAD IMPRESSION: Sinus rhythm Atrial premature complexes Left anterior fascicular block Similar to prior on 04/13/25 Electronically Signed On 06-21-2025 23:12:12 EDT by Sagar Gilliam Normal [facility] ED Nursing Noteon 06-21-2025 ED Nursing Note This RN at bedside for first 15 minutes of blood transfusion. Pt tolerating transfusion. VS updated in system. Normal [facility] ED Nursing Note Patient arrives via EMS from [facility] following bloodwork that showed low hemoglobin. No overt signs of bleeding on arrival. Patient A&O4. Patient does endorse previous blood transfusions. Normal [facility] ED Provider Noteon ED Provider Note Normal [facility] - Hematology and Cell countson 06-21-2025 Eosinophils (Bld) [#/Vol] 0.3 10*3/uL 0.0 - 0.5 10*3/uL [facility] Eosinophils/100 WBC (Bld) 2 % 0 - 6 % [facility] Giant platelets LM Ql (Bld) Rare Abnormal (none) [facility] Hypochromia Ql (Bld) Slight Abnormal (none) [facility] Lymphocytes (Bld) [#/Vol] 4 10*3/uL 1.0 - 4.3 10*3/uL [facility] Lymphocytes/100 WBC (Bld) 24 % 15 - 45 % [facility] Monocytes (Bld) [#/Vol] 1.2 10*3/uL High 0.0 - 0.9 10*3/uL [facility] Monocytes/100 WBC (Bld) 7 % 5 - 13 % [facility] Neutrophils (Bld) [#/Vol] 11.3 10*3/uL High 1.8 - 7.5 10*3/uL [facility] Ovalocytes LM Ql (Bld) Rare Abnormal (none) [facility] RBC morphology finding Nom (Bld) abnormal [facility] Segmented neutrophils/100 WBC (Bld) 67 % 38 - 82 % [facility] MANUAL DIFFERENTIAL (CELLAVI BANDAR)on 06-21-2025 BAND NEUTROPHILS TOTAL PER COUNTED LEUKOCYTES BY MANUAL COUNT Normal [facility] Comment on above: Performed By: #### L [id number], [id number] ####Ethyl Blender: UNA ARCE ([phone])[facility] [place] (SBAB)[address] [place] [address] [place] BASOPHILS TOTAL PER COUNTED LEUKOCYTES BY MANUAL COUNT Normal [facility] Comment on above: Performed By: #### L [id number], [id number] ####Ethyl Blender: UNA ARCE ([phone])[facility] [place] (SB[facility])[address] [place] [address] [place] BLASTS TOTAL PER COUNTED LEUKOCYTES BY MANUAL COUNT Normal [facility] Comment on above: Performed By: #### L [id number], [id number] ####Ethyl Blender: UNA ARCE ([phone])[facility] [place] (SB[facility])[address] [place] [address] [place] EOSINOPHILS (10*3/UL) IN BLOOD-CELLAVISION 0.3 10*3/uL Normal 0.0-0.5 [facility] Comment on above: Performed By: #### L [id number], [id number] ####Ethyl Blender: UNA ARCE ([phone])[facility] [place] ([facility])[address] [place] [address] [place] EOSINOPHILS TOTAL PER COUNTED LEUKOCYTES BY MANUAL COUNT 2 High 0-1 [facility] Comment on above: Performed By: #### L [id number], [id number] ####Ethyl Blender: UNA ARCE ([id number])[facility] [place] ([facility])[address] [place] [address] [place] EOSINOPHILS/100 LEUKOCYTES IN BLOOD-CELLAVISION 2 % Normal 0-6 [facility] Comment on above: Performed By: #### L [id number], [id number] ####Ethyl Blender: UNA ARCE ([id number])[facility] [place] ([facility])[address] [place] [address] [place] HYPOCHROMIA (PRESENCE) IN BLOOD BY LIGHT MICROSCOPY Slight Abnormal (none) [facility] Comment on above: Performed By: #### L [id number], [id number] ####Ethyl Blender: UNA ARCE ([phone])[facility] [place] ([facility])[address] [place] [address] [place] LYMPHOCYTES (10*3/UL) IN BLOOD-CELLAVISION 4.0 10*3/uL Normal 1.0-4.3 [facility] Comment on above: Performed By: #### L [id number], [id number] ####Ethyl Blender: UNA STAUFFERMELANIE ([phone])[facility] [place] (SBHLAB)[address] [place] [address] [place] LYMPHOCYTES TOTAL PER COUNTED LEUKOCYTES BY MANUAL COUNT 24 Normal [facility] Comment on above: Performed By: #### L [id number], [id number] ####Ethyl Blender: UNA BERMUDEZSILASMELANIE ([phone])[facility] [place] ([facility])[address] [place] [address] [place] LYMPHOCYTES/100 LEUKOCYTES IN BLOOD-CELLAVISION 24 % Normal 15-45 [facility] Comment on above: Performed By: #### L [id number], [id number] ####Ethyl Blender: UNA ARCE ([id number])[facility] [place] ([facility])[address] [place] [address] [place] METAMYELOCYTES TOTAL PER COUNTED LEUKOCYTES BY MANUAL COUNT Normal [facility] Comment on above: Performed By: #### L [id number], [id number] ####Ethyl Blender: UNA ARCE ([phone])[facility] [place] ([facility])[address] [place] [address] [place] MONOCYTES (10*3/UL) IN BLOOD-CELLAVISION 1.2 10*3/uL High 0.0-0.9 [facility] Comment on above: Performed By: #### L [id number], [id number] ####Ethyl Blender: UNA MOHRCER ([phone])[facility] [place] ([facility])[address] [place] [address] [place] MONOCYTES TOTAL PER COUNTED LEUKOCYTES BY MANUAL COUNT 7 Normal [facility] Comment on above: Performed By: #### L [id number], [id number] ####Ethyl Blender: UNA ARCE ([id number])[facility] [place] ([facility])[address] [place] [address] [place] MONOCYTES/100 LEUKOCYTES IN BLOOD-LUCIANA 7 % Normal 5-[address] [facility] Comment on above: Performed By: #### L [id number], [id number] ####Ethyl Blender: UNA ARCE ([phone])[facility] [place] (SBHLAB)[address] [place] [address] [place] MYELOCYTES COUNTED BY MANUAL COUNT [facility] Comment on above: Performed By: #### L [id number], [id number] ####Ethyl Blender: UNA ARCE ([phone])[facility] [place] (SBHLAB)[address] [place] [address] [place] NEUTROPHILS TOTAL PER COUNTED LEUKOCYTES BY MANUAL COUNT [address] [facility] Comment on above: Performed By: #### L [id number], [id number] ####Ethyl Blender: UNA ARCE ([id number])[facility] [place] ([facility])[address] [place] [address] [place] OVALOCYTES PRESENCE IN BLOOD BY LIGHT MICROSCOPY Rare Abnormal (none) [facility] Comment on above: Performed By: #### L [id number], [id number] ####Ethyl Blender: UNA AREC ([phone])[facility] [place] ([facility])[address] [place] [address] [place] PLATELETS GIANT PRESENCE IN BLOOD BY LIGHT MICROSCOPY Rare Abnormal (none) [facility] Comment on above: Performed By: #### L [id number], [id number] ####Ethyl Blender: UNA ARCE ([phone])[facility] [place] ([facility])[address] [place] [address] [place] PROMYELOCYTES TOTAL PER COUNTED LEUKOCYTES BY MANUAL COUNT [facility] Comment on above: Performed By: #### L [id number], [id number] ####Ethyl Blender: UNA ARCE ([id number])[facility] [place] ([facility])[address] [place] [address] [place] RBC MORPHOLOGY IN BLOOD abnormal Normal [facility] Comment on above: Performed By: #### L [id number], [id number] ####Ethyl Blender: UNA BERMUDEZPEDRO ([id number])[facility] [place] ([facility])[address] SEGMENTED NEUTROPHILS (10*3/UL) IN BLOOD-CELLAVISION 11.3 10*3/uL High 1.8-7.5 [facility] Comment on above: Performed By: #### L [id number], [id number] ####Ethyl Blender: UNA BERMUDEZPEDRO ([phone])[facility] [place] ([facility])[address] SEGMENTED NEUTROPHILS/100 LEUKOCYTES-CE 67 % Normal 38-82 [facility] Comment on above: Performed By: #### L [id number], [id number] ####Ethyl Blender: UNA ARCE ([phone])[facility] [place] ([facility])[address] UNCLASSIFIED CELLS TOTAL PER COUNTED LEUKOCYTES BY MANUAL COUNT Normal [facility] Comment on above: Performed By: #### L [id number], [id number] ####Ethyl Blender: UNA ARCE ([id number])[facility] [place] ([facility])[address] VARIANT LYMPHOCYTES TOTAL PER COUNTED LEUKOCYTES BY MANUAL COUNT [facility] Comment on above: Performed By: #### L [id number], [id number] ####Ethyl Blender: UNA ARCE ([phone])[facility] [place] ([facility])[address] No Panel Informationon 06-21 P [place] 17 degrees [facility] Interval 189 ms [facility] QRS [place] -50 degrees [facility] QRSD Interval 116 ms [facility] QT Inter[facility] 434 ms [facility] QTC Interval 436 ms [facility] T Wave [place] 37 degrees [facility] Sinus rhythm Atrial premature complexes Left anterior fascicular block Similar to prior on 04/13/25 Electronically Signed On 06-21-2025 23:12:12 EDT by Sagar Gilliam Sagar A, DO - 06/21/2025 IMPRESSION: Sinus rhythm Atrial premature complexes Left anterior fascicular block Similar to prior on 04/13/25 Electronically Signed On 06-21-2025 23:12:12 EDT by Sagar Gilliam [facility] Blood Expiration Date S [facility] Crossmatch interpretation COMP [facility] Dispense Status [facility] Blood Type 600 [facility] PRODUCT CODE [id number] [facility] ABO A [facility] Unit Number [id number] [facility]th Unit RH Negative [facility] Unit Volume [address] [facility] Atypical Lymphocytes Manual [facility] Bands Manual [facility] Basophils Manual [facility] Blasts Manual [facility] Eosinophils Manual 2 High 0 - 1 [facility] Interpretation and review of laboratory results Abnormal [facility] Lymphocytes Manual 24 [facility] Metamyelocytes Manual [facility] Monocytes Manual 7 [facility]th Myelocytes Manual [facility] ealth Neutrophils Manual 67 [facility] Promyelocytes Manual [facility] Unclassified Cells, Manual [facility] Vital signson 06-21-2025 Heart rate 63 /min bpm [facility] 36on 06-18-2025 36 Noted; thank you. Normal [facility] 36on 06-17-2025 36 Normal [facility] 36 Normal [facility] BASIC METABOLIC PANELon Anion gap [Moles/Vol] 13 mmol/L Normal 3-13 [facility] Comment on above: Performed By: #### L [id number] ####Ethyl Blender: ANAHY AVILA ([id number])[facility] JAN [place] (SWRLAB)[address] [place] [address] [place] Calcium [Mass/Vol] 9.2 mg/dL Normal 8.8-10.0 [facility] Comment on above: Performed By: #### L [id number] ####Ethyl Blender: ANAHY AVILA ([phone])[facility] JAN [place] (SWRLAB)[address] [place] [address] [place] Chloride [Moles/Vol] 98 mmol/L Normal 98-107 [facility] Comment on above: Performed By: #### L [id number] ####Ethyl Blender: ANAHY AVILA ([id number])[facility] MONTOYA [place]TM[place] (SWRLAB)[address] [place] [address] [place] CO2 [Moles/Vol] 29 mmol/L Normal 23-31 [facility] Comment on above: Performed By: #### L AB15 ####Ethyl Blender: ANAHY AVILA ([id number])[facility] JAN [place] (SWRLAB)[address] Creatinine [Mass/Vol] 2.05 mg/dL High 0.72-1.25 [facility] Comment on above: Performed By: #### L AB15 ####Ethyl Blender: ANAHY AVILA ([id number])[facility] JAN [place] (SWRLAB)[address] [place] [address] GLOMERULAR FILTRATION RATE ML/MIN/1.73 SQ M.PREDICTED 30.4 mL/min/1.73m*2 Low >60.0 [facility] Comment on above: Result Comment: Calc ulation based on the Chronic Kidney Disease Epidemiology Collaboration (CKD-EPI) equation refit without adjustment for race Performed By: #### L [id number] ####Ethyl Blender: ANAHY AVILA ([id number])[facility] MONTOYA [place] (SWRLAB)[address] [place] [address] [place] Glucose [Mass/Vol] 109 mg/dL Normal 82-115 [facility] Comment on above: Performed By: #### L AB15 ####Ethyl Blender: ANAHY AVILA ([phone])[facility] JAN [place] (SWRLAB)[address] [place] [address] [place] Potassium [Moles/Vol] 4.3 mmol/L Normal 3.5-5.1 [facility] Comment on above: Result Comment: [facility] potassium values may be up to 0.5 mmol/L lower than serum values. Performed By: #### L AB15 ####Ethyl Blender: ANAHY AVILA ([phone])[facility] JAN [place]ER[place] (SWRLAB)[address] [place] [address] Sodium [Moles/Vol] 140 mmol/L Normal 136-[address] [facility] Comment on above: Performed By: #### L AB15 ####Ethyl Blender: ANAHY AVILA ([phone])[facility] [employer] [place] (SWRLAB)[address] [place] [address] Urea nitrogen [Mass/Vol] 54 mg/dL High 9-23 [facility] Comment on above: Performed By: #### L AB15 ####Ethyl Blender: ANAHY AVILA ([phone])[facility] JAN [place] (SWRLAB)[address] [place] [address] Basic metabolic 1998 panelon 06-17-2025 Anion gap [Moles/Vol] 13 mmol/L 3 - 13 mmol/L [facility] Calcium [Mass/Vol] 9.2 mg/dL 8.8 - 10. 0 mg/dL [facility] Chloride [Moles/Vol] 98 mmol/L 98 - 10 7 mmol/L [facility] CO2 [Moles/Vol] 29 mmol/L 23 - 31 mmol/L [facility] Creatinine [Mass/Vol] 2.05 mg/dL High 0.72 - 1.25 mg/dL [facility] GFR/1.73 sq M.predicted (S/P/Bld) [Vol rate/Area] 30.4 mL/min Low - PINF [facility] Comment on above: Calculation based on the Chronic Kidney Disease Epidemiology Collaboration (CKD-EPI) equation refit without adjustment for race Glucose [Mass/Vol] 109 mg/dL 82 - 115 mg/dL [facility] Interpretation and review of laboratory results Abnormal [facility] Potassium [Moles/Vol] 4.3 mmol/L 3.5 - 5.1 mmol/L [facility] Comment on above: Plasma potassium traci ues may be up to 0.5 mmol/L lower than serum values. Sodium [Moles/Vol] 140 mmol/L 136 - 145 mmol/L [facility] Urea nitrogen [Mass/Vol] 54 mg/dL High 9 - 23 mg/d L [facility] CBC W Auto Differential pane l (Bld)Ordered By: Jessica Maldonado on 06-17-2025 Basophils (Bld) [#/Vol] 0.1 10*3/uL 0.0 - 0.2 10*3/uL [facility] Basophils/100 WBC (Bld) 0.7 % 0.0 - 2.0 % [facility] Eosinophils (Bld) [#/Vol] 0.4 10*3/uL 0.0 - 0.5 10*3/uL [facility] Eosinophils/100 WBC (Bld) 2.2 % 0.0 - 6.0 % [facility] Erythrocyte distribution width (RBC) [Ratio] 17.2 % High 11.5 - 15.0 % [facility] Hematocrit (Bld) [Volume fraction] 25.7 % Low 40.0 - 52.0 % [facility] Hemoglobin (Bld) [Mass/Vol] 8.2 g/dL Low 13.0 - 18.0 g/dL [facility] Immature granulocytes (Bld) [#/Vol] 0.2 10*3/uL High NINF - 0.1 10*3/uL [facility] Immature granulocytes/100 WBC (Bld) 1 % 0.0 - 2.0 % [facility] Interpretation and review of laboratory results Abnormal [facility] Lymphocytes (Bld) [#/Vol] 2.9 10*3/uL 1.0 - 4.3 10*3/uL [facility] Lymphocytes/100 WBC (Bld) 17.2 % 15.0 - 45.0 % [facility] MCH (RBC) [Entitic mass] 29.1 pg 26. 0 - 34.0 pg [facility] MCHC (RBC) [Mass/Vol] 31.9 % 30.5 - 36.0 % [facility] MCV (RBC) [Entitic vol] 91.1 fL 77.0 - 99.0 fL [facility] Monocytes (Bld) [#/Vol] 1.5 10*3/uL High 0.0 - 0.9 10*3/uL [facility] Monocytes/100 WBC (Bld) 9.1 % 5.0 - 13.0 % [facility] Neutrophils (Bld) [#/Vol] 11.5 10*3/uL High 1.8 - 7.5 10*3/uL [facility] Neutrophils/100 WBC (Bld) 69.8 % 38.0 - 82.0 % [facility] Nucleated RBC/100 WBC (Bld) [Ratio] 0 % [facility] Platelet mean volume (Bld) [Entitic vol] 8.7 fL Low 9.0 - 12.7 fL [facility] Comment on above: MPV is a calculated measurement using platelet volume ratio Platelets (Bld) [#/Vol] 517 10*3/uL High 140 - 440 10*3/uL [facility] RBC (Bld) [#/Vol] 2.82 10*6/uL Low 4.40 - 5.9 0 10*6/uL [facility] WBC (Bld) [#/Vol] 16.5 10*3/uL High 3.6 - 10.7 10*3/uL [facility] Moderate Anisocytosi s Slight Hypochromia [facility] CBC WITH AUTO DIFFERENTIALon 06-17-2025 Basophils (Bld) [#/Vol] 0.1 10*3/uL Normal 0.0-0.[address] [facility] Comment on above: Performed By: #### L [id number] ####Ethyl Blender: ANAHY AVILA ([phone])[facility] [place] [place] (SWRLAB)[address] [place] [address] [place] Basophils/100 WBC (Bld) 0.7 % Normal 0.0-2.0 S [facility] Comment on above: Performed By: #### L [id number] ####Ethyl Blender: ANAHY AVILA ([id number])[facility] [place] [place] (SWRLAB)[address] [place] [address] [place] Eosinophils (Bld) [#/Vol] 0.4 10*3/uL Normal 0.0-0.[address] [facility] Comment on above: Performed By: #### L [id number] ####Ethyl Blender: ANAHY AIVLA ([id number])[facility] [place] [place] (SWRLAB)[address] [place] [address] [place] Eosinophils/100 WBC (Bld) 2.2 % Normal 0.0-6.0 [facility] Comment on above: Performed By: #### L [id number] ####Ethyl Blender: ANAHY AVILA ([id number])LYNETTE MONTOYA RITTM[place] (SWRLAB)[address] [place] [address] Erythrocyte distribution width (RBC) [Ratio] 17.2 % High 11.5-15.0 [facility] Comment on above: Performed By: #### L [id number] ####Ethyl Blender: ANAHY AVILA ([id number])[facility] MONTOYA R[place]TM[place] (SWRLAB)[address] [place] [address] Hematocrit (Bld) [Volume fraction] 25.7 % Low 40.0-52.0 [facility] Comment on above: Performed By: #### L [id number] ####Ethyl Blender: ANAHY AVILA ([id number])[facility] [place] [place] (SWRLAB)[address] [place] [address] Hemoglobin (Bld) [Mass/Vol] 8.2 g/dL Low 13.0-18.0 [facility] Comment on above: Performed By: #### L [id number] ####Ethyl Blender: ANAHY AVILA ([id number])[facility] MONTOYA [place] (SWRLAB)[address] [place] [address] [place] IMMATURE GRANS % 1.0 % Normal 0.0-2.0 [facility] Comment on above: Performed By: #### L [id number] ####Ethyl Blender: ANAHY AVILA ([id number])[facility] MONTOYA [place] (SWRLAB)[address] [place] [address] [place] IMMATURE GRANS ABSOLUTE 0.2 10*3/uL High <0.1 [facility] Comment on above: Result Comment: YARELI [place] COMMENTS:Moderate AnisocytosisSlight Hypochromia Performed By: #### L [id number] ####Ethyl Blender: ANAHY AVILA ([phone])LYNETTE MONTOYA [place] (SWRLAB)[address] [place] [address] [place] Lymphocytes (Bld) [#/Vol] 2.9 10*3/uL Normal 1.0-4.[address] [facility] Comment on above: Performed By: #### L [id number] ####Ethyl Blender: ANAHY AVILA ([id number])[facility] MONTOYA RITTMAN (SWRLAB)[address] [place] [address] [place] Lymphocytes/100 WBC (Bld) 17.2 % Normal 15.0-45.[address] [facility] Comment on above: Performed By: #### L [id number] ####Ethyl Blender: ANAHY AVILA ([id number])[facility] MONTOYA RITTMAN (SWRLAB)[address] [place] [address] MCH (RBC) [Entitic mass] 29.1 pg Normal 26.0-34.[address] [facility] Comment on above: Performed By: #### L [id number] ####Ethyl Blender: ANAHY AVILA ([id number])[facility] MONTOYA RITTMAN (SWRLAB)[address] [place] [address] MCHC 31.9 % Normal 30.5-36.[address] [facility] Comment on above: Performed By: #### L [id number] ####Ethyl Blender: ANAHY AVILA ([id number])[facility] MONTOYA RITTMAN (SWRLAB)[address] [place] [address] MCV (RBC) [Entitic vol] 91.1 fL Normal 77.0-99.0 S [facility] Comment on above: Performed By: #### L [id number] ####Ethyl Blender: ANAHY AVILA ([id number])[facility] MONTOYA [place] (SWRLAB)[address] [place] [address] Monocytes (Bld) [#/Vol] 1.5 10*3/uL High 0.0-0.[address] [facility] Comment on above: Performed By: #### L [id number] ####Ethyl Blender: ANAHY AVILA ([id number])LYNETTE MONTYOA RITTMAN (SWRLAB)[address] [place] [address] [place] Monocytes/100 WBC (Bld) 9.1 % Normal 5.0-13.0 [facility] Comment on above: Performed By: #### L [id number] ####Ethyl Blender: ANAHY AVILA ([id number])[facility]ENTERnAgel MONTOYA RITTMAN (SWRLAB)[address] [place] [address] [place] NEUTROPHILS ABSOLUTE 11.5 10*3/uL High 1.8-7.5 [facility] Comment on above: Performed By: #### L [id number] ####Ethyl Blender: ANAHY AVILA ([id number])LYNETTE MONTOYA R[place]AN (SWRLAB)[address] [place] [address] [place] Neutrophils/100 WBC (Bld) 69.8 % Normal 38.0-82.0 [facility] Comment on above: Performed By: #### L [id number] ####Ethyl Blender: ANAHY AVILA ([id number])[facility] MONTOYA R[place]TMAN (SWRLAB)[address] [place] [address] [place] NRBC 0.0 /100 WBCs Normal 0.0-2.0 [facility] Comment on above: Performed By: #### L [id number] ####Ethyl Blender: ANAHY AVIAL ([id number])[facility] MONTOYA RITTMAN (SWRLAB)[address] [place] [address] Platelet mean volume (Bld) [Entitic vol] 8.7 fL Low 9.0-12.7 [facility] Comment on above: Result Comment: MPV is a calculated measurement using platelet volume ratio Performed By: #### L [id number] ####Ethyl Blender: ANAHY AVILA ([id number])[facility] MONTOYA RITTMAN (SWRLAB)[address] [place] [address] [place] Platelets (Bld) [#/Vol] 517 10*3/uL High 140-440 [facility] Comment on above: Performed By: #### L [id number] ####Ethyl Blender: ANAHY AVILA ([id number])[facility]Angel [place] (SWRLAB)[address] RBC (Bld) [#/Vol] 2.82 10*6/uL Low 4.40-5.90 [facility] Comment on above: Performed By: #### L [id number] ####Ethyl Blender: ANAHY AVILA ([id number])[facility] [place]TOYA [place] (SWRLAB)[address] WBC (Bld) [#/Vol] 16.5 10*3/uL High 3.6-10.7 [facility] Comment on above: Performed By: #### L [id number] ####Ethyl Blender: ANAHY AVILA ([id number])[facility]Angel [place] (SWRLAB)[address] [place] [address] Progress Noteon 06-17-2025 [facility] Progress Noteon 06-02-2025 Progress Note Normal [facility] Progress Noteon 05-19-2025 Progress Note Normal [facility] Progress Noteon 05-11-2025 Progress Note [facility] Progress Noteon 05-06-2025 [...] once stable. -GI follow-up Normal [facility] Progress Note Noted to have irregular heart rhythm during hospitalization and multiple EKGs show sinus rhythm with frequent PACs. -Continue Toprol 25 mg p.o. daily Normal [facility] Progress Note [facility] Progress Note Creatinine 1.46 on admission. Peak creatinine 1.78. Most recent creatinine 1.8 per labs 04/26/2025 - Continue to monitor - may have to accept a higher creatinine to keep him out of HF Normal [facility] Progress Note Bedside thoracentesi s 04/09/2025 with 1 L removed from the left and 600 mL removed from the right. Repeat left thoracentesis 04/14/2025 with 600 mL removed. - continue to monitor, appears euvolemic today Normal [facility] Progress Note Suspected CAD causin g HFrEF. NO angina. - no ASA 2/2 anemia - continue Toprol 25 mg po daily - continue atorvastatin 20 mg po daily - not a candidate or invasive workup due to anemia, advanced age and frailty Normal [facility] Progress Note Normal [facility] Progress Noteon 04-27-2025 Progress Note Normal [facility] Progress Noteon 04-20-2025 Progress Note Normal [facility] Progress Noteon 04-19-2025 Progress Note Normal [facility] [id number] 04-18-2025 [id number] Normal [facility] [id number] 04-17-2025 [id number] Normal [facility] [id number] Long Term/SNF - [facility] Member [address] [place] [address] [id number] [id number] Patient/Family Choice Normal [facility] [id number] Normal [facility] CBC W Auto Differential pane l (Bld)on 04-17-2025 Erythrocyte distribution width (RBC) [Ratio] 25.7 % High 11.5 - 15.0 % [facility] Hematocrit (Bld) [Volume fraction] 27.9 % Low 40.0 - 52.0 % [facility] Hemoglobin (Bld) [Mass/Vol] 7.9 g/dL Low 13.0 - 18.0 g/dL [facility] MCH (RBC) [Entitic mass] 23.8 pg Low 26. 0 - 34.0 pg [facility] MCHC (RBC) [Mass/Vol] 28.3 % Low 30.5 - 36.0 % [facility] MCV (RBC) [Entitic vol] 84 fL 77.0 - 99.0 fL [facility] Platelet mean volume (Bld) [Entitic vol] 9 fL 9.0 - 12.7 fL [facility] Platelets (Bld) [#/Vol] 419 10*3/uL 140 - 440 10*3/uL [facility] RBC (Bld) [#/Vol] 3.32 10*6/uL Low 4.40 - 5.9 0 10*6/uL [facility] WBC (Bld) [#/Vol] 12 10*3/uL High 3.6 - 10.7 10*3/uL [facility] CBC WITH AUTO DIFFERENTIALon 04-17-2025 Erythrocyte distribution width (RBC) [Ratio] 25.7 % High 11.5-15.[address] [facility] Comment on above: Performed By: #### L [id number], [id number] ####Ethyl Blender: UNA ARCE ([id number])[facility])[address] [place] [address] Hematocrit (Bld) [Volume fraction] 27.9 % Low 40.0-52.0 [facility] Comment on above: Performed By: #### L [id number], [id number] ####Ethyl Blender: UNA ARCE ([id number])[facility])[address] [place] [address] Hemoglobin (Bld) [Mass/Vol] 7.9 g/dL Low 13.0-18.0 [facility] Comment on above: Performed By: #### L [id number], [id number] ####Ethyl Blender: UNA ARCE ([id number])[facility])[address] [place] [address] MCH (RBC) [Entitic mass] 23.8 pg Low 26.0-34.[address] [facility] Comment on above: Performed By: #### L [id number], [id number] ####Ethyl Blender: UNA ARCE ([id number])[facility])[address] [place] [address] MCHC 28.3 % Low 30.5-36.[address] [facility] Comment on above: Performed By: #### L [id number], [id number] ####Ethyl Blender: UNA ARCE ([id number])MON[place] (SBHLAB)[address] MCV (RBC) [Entitic vol] 84.0 fL Normal 77.0-99.0 S [facility] Comment on above: Performed By: #### L [id number], [id number] ####Ethyl Blender: UNA ARCE ([id number])[facility] [place] (SBHLAB)[address] Platelet mean volume (Bld) [Entitic vol] 9.0 fL Normal 9.0-12.7 [facility] Comment on above: Performed By: #### L [id number], [id number] ####Ethyl Blender: UNA ARCE ([id number])[facility] [place] (SBHLAB)[address] [place] [address] [place] Platelets (Bld) [#/Vol] 419 10*3/uL Normal 140-440 [facility] Comment on above: Performed By: #### L [id number], [id number] ####Ethyl Blender: UNA ARCE ([id number])[facility] [place] (SBHL[facility])[address] RBC (Bld) [#/Vol] 3.32 10*6/uL Low 4.40-5.90 [facility] Comment on above: Performed By: #### L [id number], [id number] ####Ethyl Blender: UNA ARCE ([id number])[facility] [place] (SBHL[facility])[address] [place] [address] [place] WBC (Bld) [#/Vol] 12.0 10*3/uL High 3.6-10.7 [facility] Comment on above: Performed By: #### L [id number], [id number] ####Ethyl Blender: UNA ARCE ([id number])[facility] [place] (SBHL[facility])[address] COMPREHENSIVE METABOLIC PANE Anant 04-17-2025 Albumin [Mass/Vol] 2.1 g/dL Low 3.4-4.8 [facility] Comment on above: Performed By: #### L AB103, LAB17 ####Ethyl Blender: UNA ARCE ([id number])[place] (SBHLAB)[address] ALP [Catalytic activity/Vol] 49 U/L Normal 40-150 [facility] Comment on above: Performed By: #### L AB103, LAB17 ####Ethyl Blender: UNA ARCE ([id number])[facility]A [employer] [facility] [employer] [facility] [employer] [facility] (SBHLAB)[address] ALT [Catalytic activity/Vol] U/L Normal <40 [facility] Comment on above: Performed By: #### L AB103, LAB17 ####Ethyl Blender: UNA ARCE ([id number])[facility] [place] (SBHL[facility])[address] Anion gap [Moles/Vol] 10 mmol/L Normal 3-13 [facility] Comment on above: Performed By: #### L AB103, LAB17 ####Ethyl Blender: UNA ARCE ([id number])[facility] (SB[facility])[address] AST [Catalytic activity/Vol] 22 U/L Normal <[address] [facility] Comment on above: Performed By: #### L AB103, LAB17 ####Ethyl Blender: UNA ARCE ([id number])[facility] [place] (SBHL[facility])[address] Bilirubin [Mass/Vol] 0.5 mg/dL Normal <1.2 [facility] Comment on above: Performed By: #### L AB103, LAB17 ####Ethyl Blender: UNA ARCE ([id number])[facility] [place] (SBHLAB)[address] [place] [address] [place] Calcium [Mass/Vol] 8.4 mg/dL Low 8.8-10.0 [facility] Comment on above: Performed By: #### L DERICK, LAB17 ####Ethyl Blender: UNA ARCE ([id number])[facility]ENTERAngel [place] (SBHLAB)[address] Chloride [Moles/Vol] 88 mmol/L Low 98-107 [facility] Comment on above: Performed By: #### L 103, LAB17 ####Ethyl Blender: UNA ARCE ([id number])[facility]ENTERAngel [place] (SBHLAB)[address] CO2 [Moles/Vol] 40 mmol/L High 23-31 [facility] Comment on above: Performed By: #### L DERICK, LAB17 ####Ethyl Blender: UNA ARCE ([id number])[facility] [place] (SBHLAB)[address] Creatinine [Mass/Vol] 1.67 mg/dL High 0.72-1.25 [facility] Comment on above: Performed By: #### L DERICK, LAB17 ####Ethyl Blender: UNA ARCE ([id number])[facility]Angel [facility] (SBHL[facility])[address] GLOMERULAR FILTRATION RATE ML/MIN/1.73 SQ M.PREDICTED 38.9 mL/min/1.73m*2 Low >60.0 [facility] Comment on above: Result Comment: Calc ulation based on the Chronic Kidney Disease Epidemiology Collaboration (CKD-EPI) equation refit without adjustment for race Performed By: #### L ABLilly, LAB17 ####Ethyl Blender: UNA ARCE ([id number])[facility] [place] (SBHLAB)[address] Glucose [Mass/Vol] 94 mg/dL Normal 82-115 [facility] Comment on above: Performed By: #### L DERICK, LAB17 ####Ethyl Blender: UNA ARCE ([id number])[facility] (SB[facility])[address] Potassium [Moles/Vol] 3.6 mmol/L Normal 3.5-5.1 [facility] Comment on above: Result Comment: [facility] potassium values may be up to 0.5 mmol/L lower than serum values. Performed By: #### L AB103, LAB17 ####Ethyl Blender: UNA ARCE ([id number])[facility] (SB[facility])[address] Protein [Mass/Vol] 5.8 g/dL Low 6.4-8.3 [facility] Comment on above: Performed By: #### L AB103, LAB17 ####Ethyl Blender: UNA ARCE ([id number])[facility] ([facility])[address] Sodium [Moles/Vol] 138 mmol/L Normal 136-145 [facility] Comment on above: Performed By: #### L AB103, LAB17 ####Ethyl Blender: UNA ARCE ([id number])[facility] ([facility])[address] Urea nitrogen [Mass/Vol] 46 mg/dL High 9-23 [facility] Comment on above: Performed By: #### L AB103, LAB17 ####Ethyl Blender: UNA ARCE ([id number])[facility] ([facility])[address] Comprehensive metabolic 1998 panelon 04-17-2025 Albumin [Mass/Vol] 2.1 g/dL Low 3.4 - 4.8 g/dL [facility] ALP [Catalytic activity/Vol] 49 U/L 40 - 150 U/L [facility] ALT [Catalytic activity/Vol] U/L NINF - 40 U/L [facility] Anion gap [Moles/Vol] 10 mmol/L 3 - 13 mmol/L [facility] AST [Catalytic activity/Vol] 22 U/L NINF - 34 U/L [facility] Bilirubin [Mass/Vol] 0.5 mg/dL NINF - 1.2 mg/dL [facility] Calcium [Mass/Vol] 8.4 mg/dL Low 8.8 - 10. 0 mg/dL [facility] Chloride [Moles/Vol] 88 mmol/L Low 98 - 10 7 mmol/L [facility] CO2 [Moles/Vol] 40 mmol/L High 23 - 31 mmol/L [facility] Creatinine [Mass/Vol] 1.67 mg/dL High 0.72 - 1.25 mg/dL [facility] GFR/1.73 sq M.predicted (S/P/Bld) [Vol rate/Area] 38.9 mL/min Low - PINF [facility] Glucose [Mass/Vol] 94 mg/dL 82 - 115 mg/dL [facility] Interpretation and review of laboratory results Abnormal [facility] Potassium [Moles/Vol] 3.6 mmol/L 3.5 - 5.1 mmol/L [facility] Protein [Mass/Vol] 5.8 g/dL Low 6.4 - 8.3 g/dL [facility] Sodium [Moles/Vol] 138 mmol/L 136 - 145 mmol/L [facility] Urea nitrogen [Mass/Vol] 46 mg/dL High 9 - 23 mg/d L [facility] Laboratory - Chemistry and C hemistry - challengeon 04-17-2025 Magnesium [Mass/Vol] 1.8 mg/dL 1.6 - 2 .6 mg/dL [facility] Laboratory - Hematology and Cell countson 04-17-2025 Anisocytosis Ql (Bld) Slight Abnormal (none) [facility] Basophils (Bld) [#/Vol] 0.4 10*3/uL High 0.0 - 0.2 10*3/uL [facility] Basophils/100 WBC (Bld) 3 % High 0 - 2 % [facility] Eosinophils (Bld) [#/Vol] 0.2 10*3/uL 0.0 - 0.5 10*3/uL [facility] Eosinophils/100 WBC (Bld) 2 % 0 - 6 % [facility] Hypochromia Ql (Bld) Moderate Abnormal (none) [facility] Lymphocytes (Bld) [#/Vol] 1.3 10*3/uL 1.0 - 4.3 10*3/uL [facility] Lymphocytes/100 WBC (Bld) 11 % Low 15 - 45 % [facility] Monocytes (Bld) [#/Vol] 0.8 10*3/uL 0.0 - 0.9 10*3/uL [facility] Monocytes/100 WBC (Bld) 7 % 5 - 13 % [facility] Neutrophils (Bld) [#/Vol] 9.2 10*3/uL High 1.8 - 7.5 10*3/uL [facility] Poikilocytosis LM Ql (Bld) Moderate Abnormal (none) [facility] Polychromasia LM Ql (Bld) Slight Abnormal (none) [facility] RBC morphology finding Nom (Bld) abnormal [facility] Segmented neutrophils/100 WBC (Bld) 77 % 38 - 82 % [facility] Stomatocytes LM Ql (Bld) Moderate Abnormal (none) [facility] Target cells LM Ql (Bld) Slight Abnormal (none) [facility] MAGNESIUMon 04-17-2025 Magnesium [Mass/Vol] 1.8 mg/dL Normal 1.6-2.6 [facility] Comment on above: Result Comment: YARELI [place] COMMENTS:Higher values can be expected in females during menses. Performed By: #### L AB103, LAB17 ####Ethyl Blender: UNA ARCE ([id number])[facility] ([facility])[address] [place] [address] MANUAL DIFFERENTIAL (CELLAVI BANDAR)on 04-17-2025 ANISOCYTOSIS PRESENCE IN BLOOD BY LIGHT MICROSCOPY Slight Abnormal (none) [facility] Comment on above: Performed By: #### Gilbert [id number], [id number] ####Ethyl Blender: UNA ARCE ([id number])[facility] [place] ([facility])[address] BAND NEUTROPHILS TOTAL PER COUNTED LEUKOCYTES BY MANUAL COUNT Normal [facility] Comment on above: Performed By: #### L [id number], [id number] ####Ethyl Blender: UNA ARCE ([id number])[facility] BASOPHILS (10*3/UL) IN BLOOD-CELLAVISION 0.4 10*3/uL High 0.0-0.[address] [facility] Comment on above: Performed By: #### L [id number], [id number] ####Ethyl Blender: UNA STAUFFERMELANIE ([phone])[facility] [place] (SBHLAB)[address] [place] [address] [place] BASOPHILS TOTAL PER COUNTED LEUKOCYTES BY MANUAL COUNT [address] [facility] Comment on above: Performed By: #### L [id number], [id number] ####Ethyl Blender: UNA BERMUDEZPEDRO ([phone])[facility] [place] ([facility])[address] [place] [address] [place] BASOPHILS/100 LEUKOCYTES IN BLOOD-CELLAVISION 3 % High 0-2 [facility] Comment on above: Performed By: #### L [id number], [id number] ####Ethyl Blender: UNA ARCE ([phone])[facility] [place] (SB[facility]AB)155 [place] [address] [place] BLASTS TOTAL PER COUNTED LEUKOCYTES BY MANUAL COUNT Normal [facility] Comment on above: Performed By: #### L [id number], [id number] ####Ethyl Blender: UNA BERMUDEZPEDRO ([id number])[facility] [place] ([facility])[address] [place] [address] [place] EOSINOPHILS (10*3/UL) IN BLOOD-CELLAVISION 0.2 10*3/uL Normal 0.0-0.[address] [facility] Comment on above: Performed By: #### L [id number], [id number] ####Ethyl Blender: UNA STAUFFERMELANIE ([phone])[facility] [place] ([facility])[address] [place] [address] [place] EOSINOPHILS TOTAL PER COUNTED LEUKOCYTES BY MANUAL COUNT 2 High 0-[address] [facility] Comment on above: Performed By: #### L [id number], [id number] ####Ethyl Blender: UNA STAUFFERMELANIE ([phone])[facility] [place] ([facility])[address] [place] [address] [place] EOSINOPHILS/100 LEUKOCYTES IN BLOOD-CELLAVISION 2 % Normal 0-6 [facility] Comment on above: Performed By: #### L [id number], [id number] ####Ethyl Blender: UNA ARCE ([phone])[facility] [place] (SBHLAB)[address] HYPOCHROMIA (PRESENCE) IN BLOOD BY LIGHT MICROSCOPY Moderate Abnormal (none) [facility] Comment on above: Performed By: #### L [id number], [id number] ####Ethyl Blender: UNA ARCE ([phone])[facility] [place] ([facility])[address] LYMPHOCYTES (10*3/UL) IN BLOOD-CELLAVISION 1.3 10*3/uL Normal 1.0-4.3 [facility] Comment on above: Performed By: #### L [id number], [id number] ####Ethyl Blender: UNA ARCE ([id number])[facility] [place] ([facility])[address] [place] [address] [place] LYMPHOCYTES TOTAL PER COUNTED LEUKOCYTES BY MANUAL COUNT 11 Normal [facility] Comment on above: Performed By: #### L [id number], [id number] ####Ethyl Blender: UNA ARCE ([id number])[facility] [place] ([facility])[address] [place] [address] [place] LYMPHOCYTES/100 LEUKOCYTES IN BLOOD-CELLAVISION 11 % Low 15-45 [facility] Comment on above: Performed By: #### L [id number], [id number] ####Ethyl Blender: UNA ARCE ([phone])[facility] [place] ([facility])[address] [place] [address] [place] METAMYELOCYTES TOTAL PER COUNTED LEUKOCYTES BY MANUAL COUNT Normal [facility] Comment on above: Performed By: #### L [id number], [id number] ####Ethyl Blender: UNA ARCE ([phone])[facility] [place] ([facility])[address] [place] [address] [place] MONOCYTES (10*3/UL) IN BLOOD-CELLAVISION 0.8 10*3/uL Normal 0.0-0.[address] [facility] Comment on above: Performed By: #### L [id number], [id number] ####Ethyl Blender: UNA ARCE ([phone])[facility] [place] (SBHLAB)[address] [place] [address] [place] MONOCYTES TOTAL PER COUNTED LEUKOCYTES BY MANUAL COUNT [address] [facility] Comment on above: Performed By: #### L [id number], [id number] ####Ethyl Blender: UNA MOHRCER ([phone])[facility] [place] (SBHLAB)[address] [place] [address] [place] MONOCYTES/100 LEUKOCYTES IN BLOOD-LUCIANA 7 % Normal 5-13 [facility] Comment on above: Performed By: #### L [id number], [id number] ####Ethyl Blender: UNA ARCE ([id number])[facility] [place] ([facility])[address] MYELOCYTES COUNTED BY MANUAL COUNT Normal [facility] Comment on above: Performed By: #### L [id number], [id number] ####Ethyl Blender: UNA ARCE ([id number])[facility] [place] ([facility])[address] NEUTROPHILS TOTAL PER COUNTED LEUKOCYTES BY MANUAL COUNT [address] [facility] Comment on above: Performed By: #### L [id number], [id number] ####Ethyl Blender: UNA ARCE ([id number])[facility] [place] (SBHL[facility])[address] [place] [address] [place] POIKILOCYTOSIS (PRESENCE) IN BLOOD BY LIGHT MICROSCOPY Moderate Abnormal (none) [facility] Comment on above: Performed By: #### L [id number], [id number] ####Ethyl Blender: UNA ARCE ([id number])[facility] [place] ([facility])[address] [place] [address] [place] POLYCHROMASIA IN BLOOD BY LIGHT MICROSCOPY Slight Abnormal (none) [facility] Comment on above: Performed By: #### L [id number], [id number] ####Ethyl Blender: UNA ARCE ([phone])[facility] [place] ([facility])[address] [place] [address] [place] PROMYELOCYTES TOTAL PER COUNTED LEUKOCYTES BY MANUAL COUNT Normal [facility] Comment on above: Performed By: #### L PE3824, [id number] ####Ethyl Blender: UNA ARCE ([phone])[facility] [place] ([facility])[address] [place] [address] [place] RBC MORPHOLOGY IN BLOOD abnormal Normal [facility] Comment on above: Performed By: #### L IZ6380, [id number] ####Ethyl Blender: UNA ARCE ([phone])[facility] [place] ([facility])[address] [place] [address] [place] SEGMENTED NEUTROPHILS (10*3/UL) IN BLOOD-CELLAVISION 9.2 10*3/uL High 1.8-7.5 [facility] Comment on above: Performed By: #### L [id number], [id number] ####Ethyl Blender: UNA ARCE ([id number])[facility] [place] ([facility])[address] [place] [address] [place] SEGMENTED NEUTROPHILS/100 LEUKOCYTES-CE 77 % Normal 38-82 [facility] Comment on above: Performed By: #### L [id number], [id number] ####Ethyl Blender: UNA ARCE ([id number])[facility] [place] ([facility])[address] [place] [address] [place] STOMATOCYTES IN BLOOD BY LIGHT MICROSCOPY Moderate Abnormal (none) [facility] Comment on above: Performed By: #### L [id number], [id number] ####Ethyl Blender: UNA ARCE ([id number])[facility] [place] ([facility])[address] [place] [address] [place] TARGET CELLS IN BLOOD BY LIGHT MICROSCOPY Slight Abnormal (none) [facility] Comment on above: Performed By: #### L FY4040, [id number] ####Ethyl Blender: UNA MOHRCER ([id number])[facility] (SBHLAB)[address] UNCLASSIFIED CELLS TOTAL PER COUNTED LEUKOCYTES BY MANUAL COUNT Normal [facility] Comment on above: Performed By: #### L [id number], [id number] ####Ethyl Blender: UNA BERMUDEZPEDRO ([id number])[facility] [place] (SBHLAB)[address] VARIANT LYMPHOCYTES TOTAL PER COUNTED LEUKOCYTES BY MANUAL COUNT Normal [facility] Comment on above: Performed By: #### L [id number], [id number] ####Ethyl Blender: UNA BERMUDEZPEDRO ([phone])[facility] (SBHLAB)[address] Magnesium [Mass/Vol]on 04-17 Interpretation and review of laboratory results Normal [facility] No Panel Informationon 04-17 [facility] Basophils Manual 3 [facility] Eosinophils Manual 2 High 0 - 1 [facility] Interpretation and review of laboratory results Abnormal [facility] Lymphocytes Manual 11 [facility] Monocytes Manual 7 [facility] Neutrophils Manual 77 [facility] Nursing Noteon 04-17-2025 Nursing Note Report given to Flor MYERS at [facility]. All belongings sent with patient, including eyewear. HL removed, site WNL. Normal [facility] Progress Noteon 04-17-2025 Progress Note Normal [facility] Progress Note Normal [facility] [id number] 04-16-2025 [id number] Tasked weekend TTC t o follow for possible dc over the weekend. mergers and acquisitions manager to follow and assist as needed. [facility] [phone] Complete in [facility] for [facility] per TCC request Normal [facility] [id number] Normal [facility] CBC W Auto Differential pane l (Bld)Ordered By: Dayan Hernandez on 04-16-2025 Erythrocyte distribution width (RBC) [Ratio] 25.7 % High 11.5 - 15.0 % [facility] Hematocrit (Bld) [Volume fraction] 28.4 % Low 40.0 - 52.0 % [facility] Hemoglobin (Bld) [Mass/Vol] 8 g/dL Low 13.0 - 18.0 g/dL [facility] Interpretation and review of laboratory results Abnormal [facility] MCH (RBC) [Entitic mass] 23.7 pg Low 26. 0 - 34.0 pg [facility] MCHC (RBC) [Mass/Vol] 28.2 % Low 30.5 - 36.0 % [facility] MCV (RBC) [Entitic vol] 84.3 fL 77.0 - 99.0 fL [facility] Platelet mean volume (Bld) [Entitic vol] 9.1 fL 9.0 - 12.7 fL [facility] Platelets (Bld) [#/Vol] 405 10*3/uL 140 - 440 10*3/uL [facility] RBC (Bld) [#/Vol] 3.37 10*6/uL Low 4.40 - 5.9 0 10*6/uL [facility] WBC (Bld) [#/Vol] 13.1 10*3/uL High 3.6 - 10.7 10*3/uL [facility] CBC WITH AUTO DIFFERENTIALon 04-16-2025 Erythrocyte distribution width (RBC) [Ratio] 25.7 % High 11.5-15.0 [facility] Comment on above: Performed By: #### L [id number], [id number] ####Ethyl Blender: UNA ARCE ([phone])[facility] [place] [address] Hematocrit (Bld) [Volume fraction] 28.4 % Low 40.0-52.0 [facility] Comment on above: Performed By: #### L ZM2335, [id number] ####Ethyl Blender: UNA ARCE ([id number])[facility] (SB[facility])[address] Hemoglobin (Bld) [Mass/Vol] 8.0 g/dL Low 13.0-18.[address] [facility] Comment on above: Performed By: #### L [id number], [id number] ####Ethyl Blender: UNA ARCE ([id number])[facility] [place] (SBHLAB)[address] MCH (RBC) [Entitic mass] 23.7 pg Low 26.0-34.0 [facility] Comment on above: Performed By: #### L [id number], [id number] ####Ethyl Blender: UNA ARCE ([id number])[facility] MCHC 28.2 % Low 30.5-36.[address] [facility] Comment on above: Performed By: #### L [id number], [id number] ####Ethyl Blender: UNA ARCE ([phone])[facility] [place] (SBHLAB)[address] MCV (RBC) [Entitic vol] 84.3 fL Normal 77.0-99.0 [facility] Comment on above: Performed By: #### L KX3661, [id number] ####Ethyl Blender: UNA ARCE ([id number])[facility] (HLAB)[address] Platelet mean volume (Bld) [Entitic vol] 9.1 fL Normal 9.0-12.[address] [facility] Comment on above: Performed By: #### L ZI8046, [id number] ####Ethyl Blender: UNA ARCE ([id number])[facility] (HLAB)[address] Platelets (Bld) [#/Vol] 405 10*3/uL Normal 140-[address] [facility] Comment on above: Performed By: #### L PE6880, [id number] ####Ethyl Blender: UNA ARCE ([id number])[facility] (SBHLAB)[address] RBC (Bld) [#/Vol] 3.37 10*6/uL Low 4.40-5.90 [facility] Comment on above: Performed By: #### L VP6222, [id number] ####Ethyl Blender: UNA ARCE ([phone])[facility] (SBHLAB)[address] WBC (Bld) [#/Vol] 13.1 10*3/uL High 3.6-10.[address] [facility] Comment on above: Performed By: #### L ZQ2804, [id number] ####Ethyl Blender: UNA ARCE ([id number])[facility] (SBHLAB)[address] COMPREHENSIVE METABOLIC PANE Anant 04-16-2025 Albumin [Mass/Vol] 2.2 g/dL Low 3.4-4.8 [facility] Comment on above: Performed By: #### L AB103, LAB17 ####Ethyl Blender: UNA ARCE ([phone])[facility] (SBHLAB)[address] ALP [Catalytic activity/Vol] 55 U/L Normal 40-150 [facility] Comment on above: Performed By: #### L AB103, LAB17 ####Ethyl Blender: UNA ARCE ([id number])[facility] (SBHLAB)[address] ALT [Catalytic activity/Vol] 6 U/L Normal <[address] [facility] Comment on above: Performed By: #### L AB103, LAB17 ####Ethyl Blender: UNA ARCE ([id number])[facility] (SBHLAB)[address] Anion gap [Moles/Vol] 10 mmol/L Normal 3-13 [facility] Comment on above: Performed By: #### L AB103, LAB17 ####Ethyl Blender: UNA ARCE ([id number])[facility] [place] (SB[facility])[address] AST [Catalytic activity/Vol] 23 U/L Normal <34 [facility] Comment on above: Performed By: #### L AB103, LAB17 ####Ethyl Blender: UNA ARCE ([id number])[facility] [place] (SB[facility])[address] Bilirubin [Mass/Vol] 0.5 mg/dL Normal <1.2 [facility] Comment on above: Performed By: #### L AB103, LAB17 ####Ethyl Blender: UNA STAUFFERMELANIE ([phone])[facility] (SBHLAB)[address] Calcium [Mass/Vol] 8.2 mg/dL Low 8.8-10.0 [facility] Comment on above: Performed By: #### L AB103, LAB17 ####Ethyl Blender: UNA ARCE ([id number])[facility] [place] ([facility])[address] Chloride [Moles/Vol] 87 mmol/L Low 98-107 [facility] Comment on above: Performed By: #### L AB103, LAB17 ####Ethyl Blender: UNA ARCE ([id number])[facility] [place] (SB[facility])[address] [place] [address] [place] CO2 [Moles/Vol] 43 mmol/L High 23-31 [facility] Comment on above: Performed By: #### L AB103, LAB17 ####Ethyl Blender: UNA ARCE ([id number])[facility] [place] (SB[facility])[address] Creatinine [Mass/Vol] 1.81 mg/dL High 0.72-1.25 [facility] Comment on above: Performed By: #### L AB103, LAB17 ####Ethyl Blender: UNA ARCE ([phone])[facility] [place] ([facility])[address] [place] [address] [place] GLOMERULAR FILTRATION RATE ML/MIN/1.73 SQ M.PREDICTED 35.3 mL/min/1.73m*2 Low >60.0 [facility] Comment on above: Result Comment: Calc ulation based on the Chronic Kidney Disease Epidemiology Collaboration (CKD-EPI) equation refit without adjustment for race Performed By: #### L AB103, LAB17 ####Ethyl Blender: UNA ARCE ([id number])[facility] (SB[facility])[address] Glucose [Mass/Vol] 114 mg/dL Normal 82-115 [facility] Comment on above: Performed By: #### L AB103, LAB17 ####Ethyl Blender: UNA ARCE ([id number])[facility] (SB[facility])[address] Potassium [Moles/Vol] 3.6 mmol/L Normal 3.5-5.1 [facility] Comment on above: Result Comment: [facility] potassium values may be up to 0.5 mmol/L lower than serum values. Performed By: #### L AB103, LAB17 ####Ethyl Blender: UNA ARCE ([phone])[facility] [place] (SB[facility])[address] [place] [address] [place] Protein [Mass/Vol] 6.0 g/dL Low 6.4-8.3 [facility] Comment on above: Performed By: #### L AB103, LAB17 ####Ethyl Blender: UNA ARCE ([phone])[facility] ([facility])[address] [place] [address] [place] Sodium [Moles/Vol] 140 mmol/L Normal 136-145 [facility] Comment on above: Performed By: #### L AB103, LAB17 ####Ethyl Blender: UNA ARCE ([id number])[facility] [place] (SBHLAB)[address] Urea nitrogen [Mass/Vol] 46 mg/dL High 9-23 [facility] Comment on above: Performed By: #### L AB103, LAB17 ####Ethyl Blender: UNA ARCE ([phone])[facility] [place] (SB[facility])[address] Comprehensive metabolic 1998 panelon 04-16-2025 Albumin [Mass/Vol] 2.2 g/dL Low 3.4 - 4.8 g/dL [facility] ALP [Catalytic activity/Vol] 55 U/L 40 - 150 U/L [facility] ALT [Catalytic activity/Vol] 6 U/L NINF - 40 U/L [facility] Anion gap [Moles/Vol] 10 mmol/L 3 - 13 mmol/L [facility] AST [Catalytic activity/Vol] 23 U/L NINF - 34 U/L [facility] Bilirubin [Mass/Vol] 0.5 mg/dL NINF - 1.2 mg/dL [facility] Calcium [Mass/Vol] 8.2 mg/dL Low 8.8 - 10. 0 mg/dL [facility] Chloride [Moles/Vol] 87 mmol/L Low 98 - 10 7 mmol/L [facility] CO2 [Moles/Vol] 43 mmol/L High 23 - 31 mmol/L [facility] Creatinine [Mass/Vol] 1.81 mg/dL High 0.72 - 1.25 mg/dL [facility] GFR/1.73 sq M.predicted (S/P/Bld) [Vol rate/Area] 35.3 mL/min Low - PINF [facility] Glucose [Mass/Vol] 114 mg/dL 82 - 115 mg/dL [facility] Interpretation and review of laboratory results Abnormal [facility] Potassium [Moles/Vol] 3.6 mmol/L 3.5 - 5.1 mmol/L [facility] Protein [Mass/Vol] 6 g/dL Low 6.4 - 8.3 g/dL [facility] Sodium [Moles/Vol] 140 mmol/L 136 - 145 mmol/L [facility] Urea nitrogen [Mass/Vol] 46 mg/dL High 9 - 23 mg/d L [facility] Laboratory - Chemistry and C hemistry - challengeon 04-16-2025 Magnesium [Mass/Vol] 1.8 mg/dL 1.6 - 2 .6 mg/dL [facility] Laboratory - Hematology and Cell countson 04-16-2025 Anisocytosis Ql (Bld) Moderate Abnormal (none) [facility] Basophils (Bld) [#/Vol] 0.1 10*3/uL 0.0 - 0.2 10*3/uL [facility] Basophils/100 WBC (Bld) 1 % 0 - 2 % S [facility] [place] cells LM Ql (Bld) Slight Abnormal (none) [facility] Eosinophils (Bld) [#/Vol] 0.5 10*3/uL 0.0 - 0.5 10*3/uL [facility] Eosinophils/100 WBC (Bld) 4 % 0 - 6 % [facility] Hypochromia Ql (Bld) Slight Abnormal (none) [facility] Lymphocytes (Bld) [#/Vol] 1.6 10*3/uL 1.0 - 4.3 10*3/uL [facility] Lymphocytes/100 WBC (Bld) 12 % Low 15 - 45 % [facility] Monocytes (Bld) [#/Vol] 0.9 10*3/uL 0.0 - 0.9 10*3/uL [facility] Monocytes/100 WBC (Bld) 7 % 5 - 13 % [facility] Neutrophils (Bld) [#/Vol] 9.8 10*3/uL High 1.8 - 7.5 10*3/uL [facility] Poikilocytosis LM Ql (Bld) Slight Abnormal (none) [facility] RBC morphology finding Nom (Bld) abnormal [facility] Segmented neutrophils/100 WBC (Bld) 75 % 38 - 82 % [facility] Variant lymphocytes (Bld) [#/Vol] 0.3 10*3/uL High NINF - 0.0 10*3/uL [facility] Variant lymphocytes/100 WBC (Bld) 2 % High NINF - 0 % [facility] MAGNESIUMon 04-16-2025 Magnesium [Mass/Vol] 1.8 mg/dL Normal 1.6-2.[address] [facility] Comment on above: Result Comment: YARELI [place] COMMENTS:Higher values can be expected in females during menses. Performed By: #### L AB103, LAB17 ####Ethyl Blender: UNA ARCE ([phone])[facility] [place] (SBHLAB)[address] [place] [address] [place] MANUAL DIFFERENTIAL (CELLAVI BANDAR)on 04-16-2025 ANISOCYTOSIS PRESENCE IN BLOOD BY LIGHT MICROSCOPY Moderate Abnormal (none) [facility] Comment on above: Performed By: #### L [id number], [id number] ####Ethyl Blender: UNA ARCE ([id number])[facility] [place] (SB[facility])[address] [place] [address] [place] BAND NEUTROPHILS TOTAL PER COUNTED LEUKOCYTES BY MANUAL COUNT Normal [facility] Comment on above: Performed By: #### L [id number], [id number] ####Ethyl Blender: UNA STAUFFERMELANIE ([id number])[facility] [place] ([facility])[address] [place] [address] [place] BASOPHILS (10*3/UL) IN BLOOD-CELLAVISION 0.1 10*3/uL Normal 0.0-0.[address] [facility] Comment on above: Performed By: #### L [id number], [id number] ####Ethyl Blender: UNA ARCE ([phone])[facility] [place] ([facility])[address] [place] [address] [place] BASOPHILS TOTAL PER COUNTED LEUKOCYTES BY MANUAL COUNT [address] [facility] Comment on above: Performed By: #### L ZB3402, [id number] ####Ethyl Blender: UNA ARCE ([id number])[facility] [place] ([facility])[address] [place] [address] [place] BASOPHILS/100 LEUKOCYTES IN BLOOD-CELLAVISION 1 % Normal 0-2 [facility] Comment on above: Performed By: #### L [id number], [id number] ####Ethyl Blender: UNA ARCE ([id number])[facility] [place] ([facility])[address] [place] [address] [place] BLASTS TOTAL PER COUNTED LEUKOCYTES BY MANUAL COUNT Normal [facility] Comment on above: Performed By: #### L CX6120, [id number] ####Ethyl Blender: UNA ARCE ([id number])[facility] [place] ([facility])[address] [place] [address] [place] MEENA CELLS PRESENCE IN BLOOD BY LIGHT MICROSCOPY Slight Abnormal (none) [facility] Comment on above: Performed By: #### L [id number], [id number] ####Ethyl Blender: UNA ARCE ([id number])[facility] [place] ([facility])[address] [place] [address] [place] EOSINOPHILS (10*3/UL) IN BLOOD-CELLAVISION 0.5 10*3/uL Normal 0.0-0.[address] [facility] Comment on above: Performed By: #### L [id number], [id number] ####Ethyl Blender: UNA ARCE ([id number])[facility] ([facility])[address] [place] [address] [place] EOSINOPHILS TOTAL PER COUNTED LEUKOCYTES BY MANUAL COUNT 4 High 0-[address] [facility] Comment on above: Performed By: #### L SW0120, [id number] ####Ethyl Blender: UNA ARCE ([phone])[facility] [place] [address] [place] EOSINOPHILS/100 LEUKOCYTES IN BLOOD-CELLAVISION 4 % Normal 0-[address] [facility] Comment on above: Performed By: #### L [id number], [id number] ####Ethyl Blender: UNA ARCE ([id number])[facility] [place] (SB[facility])[address] [place] [address] [place] HYPOCHROMIA (PRESENCE) IN BLOOD BY LIGHT MICROSCOPY Slight Abnormal (none) [facility] Comment on above: Performed By: #### L [id number], [id number] ####Ethyl Blender: UNA ARCE ([id number])[facility] ([facility])[address] [place] [address] [place] LYMPHOCYTE VARIANT/100 LEUKOCYTES IN BLOOD- CELLAVISION 2 % High <=[address] [facility] Comment on above: Performed By: #### L [id number], [id number] ####Ethyl Blender: UNA ARCE ([id number])[facility] [place] (SBHLAB)[address] [place] [address] [place] LYMPHOCYTES (10*3/UL) IN BLOOD-CELLAVISION 1.6 10*3/uL Normal 1.0-4.[address] [facility] Comment on above: Performed By: #### L [id number], [id number] ####Ethyl Blender: UNA ARCE ([id number])[facility] [place] (SB[facility]AB)[address] LYMPHOCYTES TOTAL PER COUNTED LEUKOCYTES BY MANUAL COUNT [address] [facility] Comment on above: Performed By: #### L [id number], [id number] ####Ethyl Blender: UNA ARCE ([id number])[facility] [place] ([facility])[address] [place] [address] [place] LYMPHOCYTES/100 LEUKOCYTES IN BLOOD-CELLAVISION 12 % Low 15-[address] [facility] Comment on above: Performed By: #### L [id number], [id number] ####Ethyl Blender: UNA ARCE ([id number])[facility] [place] (SB[facility])[address] METAMYELOCYTES TOTAL PER COUNTED LEUKOCYTES BY MANUAL COUNT Normal [facility] Comment on above: Performed By: #### L [id number], [id number] ####Ethyl Blender: UNA ARCE ([id number])[facility] [place] ([facility])[address] [place] [address] [place] MONOCYTES (10*3/UL) IN BLOOD-CELLAVISION 0.9 10*3/uL Normal 0.0-0.[address] [facility] Comment on above: Performed By: #### L [id number], [id number] ####Ethyl Blender: UNA ARCE ([phone])[facility] [place] ([facility])[address] [place] [address] [place] MONOCYTES TOTAL PER COUNTED LEUKOCYTES BY MANUAL COUNT 7 Normal [facility] Comment on above: Performed By: #### L [id number], [id number] ####Ethyl Blender: UNA ARCE ([phone])[facility] [place] ([facility])[address] [place] [address] [place] MONOCYTES/100 LEUKOCYTES IN BLOOD-LUCIANA 7 % Normal -13 [facility] Comment on above: Performed By: #### L [id number], [id number] ####Ethyl Blender: UNA ARCE ([id number])[facility] [place] ([facility])[address] MYELOCYTES COUNTED BY MANUAL COUNT [facility] Comment on above: Performed By: #### L [id number], [id number] ####Ethyl Blender: UNA ARCE ([phone])[facility] [place] ([facility])[address] NEUTROPHILS TOTAL PER COUNTED LEUKOCYTES BY MANUAL COUNT 77 [facility] Comment on above: Performed By: #### L [id number], [id number] ####Ethyl Blender: UNA ARCE ([phone])[facility] [place] ([facility])[address] POIKILOCYTOSIS (PRESENCE) IN BLOOD BY LIGHT MICROSCOPY Slight Abnormal (none) [facility] Comment on above: Performed By: #### L [id number], [id number] ####Ethyl Blender: UNA ARCE ([phone])[facility] [place] ([facility])[address] [place] [address] [place] PROMYELOCYTES TOTAL PER COUNTED LEUKOCYTES BY MANUAL COUNT [facility] Comment on above: Performed By: #### L [id number], [id number] ####Ethyl Blender: UNA ARCE ([phone])[facility] [place] ([facility])[address] [place] [address] [place] RBC MORPHOLOGY IN BLOOD abnormal Normal [facility] Comment on above: Performed By: #### L [id number], [id number] ####Ethyl Blender: UNA ARCE ([phone])[facility] [place] ([facility])[address] [place] [address] [place] SEGMENTED NEUTROPHILS (10*3/UL) IN BLOOD-CELLAVISION 9.8 10*3/uL High 1.8-7.5 [facility] Comment on above: Performed By: #### L [id number], [id number] ####Ethyl Blender: UNA ARCE ([phone])[facility] [place] ([facility])[address] [place] [address] [place] SEGMENTED NEUTROPHILS/100 LEUKOCYTES-CE 75 % Normal 38-82 [facility] Comment on above: Performed By: #### L [id number], [id number] ####Ethyl Blender: UNA ARCE ([id number])[facility] [place] ([facility])[address] UNCLASSIFIED CELLS TOTAL PER COUNTED LEUKOCYTES BY MANUAL COUNT Normal [facility] Comment on above: Performed By: #### L [id number], [id number] ####Ethyl Blender: UAN ARCE ([phone])[facility] [place] ([facility])[address] VARIANT LYMPHOCYTES (10*3/UL) IN BLOOD-CELLAVISION 0.3 10*3/uL High <=0.0 [facility] Comment on above: Performed By: #### L [id number], [id number] ####Ethyl Blender: UNA ARCE ([id number])[facility] [place] ([facility])[address] [place] [address] [place] VARIANT LYMPHOCYTES TOTAL PER COUNTED LEUKOCYTES BY MANUAL COUNT 2 Normal [facility] Comment on above: Performed By: #### L [id number], [id number] ####Ethyl Blender: UNA ARCE ([phone])[facility] [place] ([facility])[address] [place] [address] [place] Magnesium [Mass/Vol]on 04-16 Interpretation and review of laboratory results Normal [facility] No Panel Informationon 04-16 [facility] Atypical Lymphocytes Manual 2 [facility] Basophils Manual 1 [facility] alth Eosinophils Manual 4 High 0 - 1 [facility] Interpretation and review of laboratory results Abnormal [facility] Lymphocytes Manual 12 [facility] Monocytes Manual 7 [facility] Neutrophils Manual 77 [facility] Nursing Noteon 04-16-2025 Nursing Note Normal [facility] Progress Noteon 04-16-2025 Progress Note [facility] Progress [facility] Normal [facility] Progress Note Normal [facility] Progress Note Normal [facility] Progress Note Normal [facility] [id number] 04-15-[address]25 [id number] [facility] Bacteria identified Anaer cx Nom (Unsp spec)on 04-15-2025 Interpretation and review of laboratory results Normal [facility] CBC W Auto Differential pane l (Bld)on 04-15-2025 Erythrocyte distribution width (RBC) [Ratio] 25.3 % High 11.5 - 15.0 % [facility] Hematocrit (Bld) [Volume fraction] 28 % Low 40.0 - 52.0 % [facility] Hemoglobin (Bld) [Mass/Vol] 7.8 g/dL Low 13.0 - 18.0 g/dL [facility] Interpretation and review of laboratory results Abnormal [facility] MCH (RBC) [Entitic mass] 23.4 pg Low 26. 0 - 34.0 pg [facility] MCHC (RBC) [Mass/Vol] 27.9 % Low 30.5 - 36.0 % [facility] MCV (RBC) [Entitic vol] 84.1 fL 77.0 - 99.0 fL [facility] Platelet mean volume (Bld) [Entitic vol] 9.1 fL 9.0 - 12.7 fL [facility] Platelets (Bld) [#/Vol] 332 10*3/uL 140 - 440 10*3/uL [facility] RBC (Bld) [#/Vol] 3.33 10*6/uL Low 4.40 - 5.9 0 10*6/uL [facility] WBC (Bld) [#/Vol] 12.4 10*3/uL High 3.6 - 10.7 10*3/uL [facility] CBC WITH AUTO DIFFERENTIALon 04-15-2025 Erythrocyte distribution width (RBC) [Ratio] 25.3 % High 11.5-15.0 [facility] Comment on above: Performed By: #### L [id number], [id number] ####Ethyl Blender: UNA ARCE ([id number])[facility] (SBAB)[address] Hematocrit (Bld) [Volume fraction] 28.0 % Low 40.0-52.0 [facility] Comment on above: Performed By: #### L [id number], [id number] ####Ethyl Blender: UNA ARCE ([phone])[facility] [place] [address] Hemoglobin (Bld) [Mass/Vol] 7.8 g/dL Low 13.0-18.0 [facility] Comment on above: Performed By: #### L [id number], [id number] ####Ethyl Blender: UNA ARCE ([phone])[facility] [place] [address] MCH (RBC) [Entitic mass] 23.4 pg Low 26.0-34.[address] [facility] Comment on above: Performed By: #### L [id number], [id number] ####Ethyl Blender: UNA ARCE ([phone])[facility] MCHC 27.9 % Low 30.5-36.[address] [facility] Comment on above: Performed By: #### L [id number], [id number] ####Ethyl Blender: UNA ARCE ([phone])[facility] ([facility] MCV (RBC) [Entitic vol] 84.1 fL Normal 77.0-99.0 [facility] Comment on above: Performed By: #### L [id number], [id number] ####Ethyl Blender: UNA ARCE ([phone])[facility] [place] ([place])[address] Platelet mean volume (Bld) [Entitic vol] 9.1 fL Normal 9.0-12.7 [facility] Comment on above: Performed By: #### L [id number], [id number] ####Ethyl Blender: UNA ARCE ([phone])[facility] [place] ([facility])[address] Platelets (Bld) [#/Vol] 332 10*3/uL Normal 140-440 [facility] Comment on above: Performed By: #### L [id number], [id number] ####Ethyl Blender: UNA ARCE ([phone])[facility] S[facility]ZSIERRA [facility]OSPITALMarisol (SB[facility])[address] RBC (Bld) [#/Vol] 3.33 10*6/uL Low 4.40-5.90 [facility] Comment on above: Performed By: #### L [id number], [id number] ####Ethyl Blender: UNA ARCE ([phone])[facility] [place] ([place])[address] WBC (Bld) [#/Vol] 12.4 10*3/uL High 3.6-10.7 [facility] Comment on above: Performed By: #### L [id number], [id number] ####Ethyl Blender: UNA ARCE ([phone])[facility] ([facility])[address] COMPREHENSIVE METABOLIC PANE Anant 04-15-2025 Albumin [Mass/Vol] 2.1 g/dL Low 3.4-4.8 [facility] Comment on above: Performed By: #### L AB17, [id number] ####Ethyl Blender: UNA ARCE ([phone])[facility] [place] (SB[facility])[address] [place] [address] [place] ALP [Catalytic activity/Vol] 48 U/L Normal 40-150 [facility] Comment on above: Performed By: #### L AB17, [id number] ####Ethyl Blender: UNA ARCE ([phone])[facility] [place] ([facility])[address] [place] [address] [place] ALT [Catalytic activity/Vol] U/L Normal <40 [facility] Comment on above: Performed By: #### L AB17, [id number] ####Ethyl Blender: UNA ARCE ([phone])[facility] [place] ([facility])[address] Anion gap [Moles/Vol] 9 mmol/L Normal 3-13 [facility] Comment on above: Performed By: #### L AB17, [id number] ####Ethyl Blender: UNA ARCE ([phone])[facility] [place] ([place])[address] AST [Catalytic activity/Vol] 21 U/L Normal <34 [facility] Comment on above: Performed By: #### L AB17, [id number] ####Ethyl Blender: UNA ARCE ([phone])[facility] [place] ([facility])[address] Bilirubin [Mass/Vol] 0.6 mg/dL Normal <1.2 [facility] Comment on above: Performed By: #### L AB17, [id number] ####Ethyl Blender: UNA ARCE ([phone])[facility] [place] ([facility])[address] [place] [address] [place] Calcium [Mass/Vol] 8.2 mg/dL Low 8.8-10.[address] [facility] Comment on above: Performed By: #### L AB17, [id number] ####Ethyl Blender: UNA ARCE ([phone])[facility] [place] ([facility])[address] [place] [address] [place] Chloride [Moles/Vol] 90 mmol/L Low 98-107 [facility] Comment on above: Performed By: #### L AB17, [id number] ####Ethyl Blender: UNA BERMUDEZPEDRO ([phone])[facility]ITALN ([facility])[address] CO2 [Moles/Vol] 40 mmol/L High 23-31 [facility] Comment on above: Performed By: #### L AB17, [id number] ####Ethyl Blender: UNA BERMUDEZPEDRO ([phone])[facility] ([facility])[address] Creatinine [Mass/Vol] 1.58 mg/dL High 0.72-1.25 [facility] Comment on above: Performed By: #### L AB17, [id number] ####Ethyl Blender: UNA BERMUDEZPEDRO ([phone])[facility] ([facility])[address] GLOMERULAR FILTRATION RATE ML/MIN/1.73 SQ M.PREDICTED 41.6 mL/min/1.73m*2 Low >60.0 [facility] Comment on above: Result Comment: Calc ulation based on the Chronic Kidney Disease Epidemiology Collaboration (CKD-EPI) equation refit without adjustment for race Performed By: #### L AB17, [id number] ####Ethyl Blender: UNA STAUFFERMELANIE ([phone])[facility] ([facility])[address] Glucose [Mass/Vol] 130 mg/dL High 82-115 [facility] Comment on above: Performed By: #### L AB17, [id number] ####Ethyl Blender: UNA ARCE ([phone])[facility] ([place])[address] Potassium [Moles/Vol] 3.5 mmol/L Normal 3.5-5.1 [facility] Comment on above: Result Comment: [facility] potassium values may be up to 0.5 mmol/L lower than serum values. Performed By: #### L AB17, [id number] ####Ethyl Blender: UNAANJEL ARCE ([phone])[facility] ([facility])[address] Protein [Mass/Vol] 5.7 g/dL Low 6.4-8.3 [facility] Comment on above: Performed By: #### L AB17, [id number] ####Ethyl Blender: UNA BERMUDEZLevonMELANIE ([phone])[facility] ([facility])[address] Sodium [Moles/Vol] 139 mmol/L Normal 136-145 [facility] Comment on above: Performed By: #### L AB17, [id number] ####Ethyl Blender: UNA BERMUDEZPEDRO ([phone])[facility] ([facility])[address] Urea nitrogen [Mass/Vol] 43 mg/dL High 9-[address] [facility] Comment on above: Performed By: #### L AB17, [id number] ####Ethyl Blender: UNA BERMUDEZPEDRO ([phone])[facility] ([facility])[address] Comprehensive metabolic 1998 panelon 04-15-2025 Albumin [Mass/Vol] 2.1 g/dL Low 3.4 - 4.8 g/dL [facility] ALP [Catalytic activity/Vol] 48 U/L 40 - 150 U/L [facility] ALT [Catalytic activity/Vol] U/L NINF - 40 U/L [facility] Anion gap [Moles/Vol] 9 mmol/L 3 - 13 mmol/L [facility] AST [Catalytic activity/Vol] 21 U/L NINF - 34 U/L [facility] Bilirubin [Mass/Vol] 0.6 mg/dL NINF - 1.2 mg/dL [facility] Calcium [Mass/Vol] 8.2 mg/dL Low 8.8 - 10. 0 mg/dL [facility] Chloride [Moles/Vol] 90 mmol/L Low 98 - 10 7 mmol/L [facility] CO2 [Moles/Vol] 40 mmol/L High 23 - 31 mmol/L [facility] Creatinine [Mass/Vol] 1.58 mg/dL High 0.72 - 1.25 mg/dL [facility] GFR/1.73 sq M.predicted (S/P/Bld) [Vol rate/Area] 41.6 mL/min Low - PINF [facility] Glucose [Mass/Vol] 130 mg/dL High 82 - 115 mg/dL [facility] Interpretation and review of laboratory results Abnormal [facility] Potassium [Moles/Vol] 3.5 mmol/L 3.5 - 5.1 mmol/L [facility] Protein [Mass/Vol] 5.7 g/dL Low 6.4 - 8.3 g/dL [facility] Sodium [Moles/Vol] 139 mmol/L 136 - 145 mmol/L [facility] Urea nitrogen [Mass/Vol] 43 mg/dL High 9 - 23 mg/d L [facility] Laboratory - Chemistry and C hemistry - challengeon 04-15-2025 Magnesium [Mass/Vol] 1.8 mg/dL 1.6 - 2 .6 mg/dL [facility] Laboratory - Hematology and Cell countson 04-15-2025 Anisocytosis Ql (Bld) Moderate Abnormal (none) [facility] Basophils (Bld) [#/Vol] 0.2 10*3/uL 0.0 - 0.2 10*3/uL [facility] Basophils/100 WBC (Bld) 2 % 0 - 2 % [facility] Eosinophils (Bld) [#/Vol] 0.1 10*3/uL 0.0 - 0.5 10*3/uL [facility] Eosinophils/100 WBC (Bld) 1 % 0 - 6 % [facility] Hypochromia Ql (Bld) Moderate Abnormal (none) [facility] Lymphocytes (Bld) [#/Vol] 1.2 10*3/uL 1.0 - 4.3 10*3/uL [facility] Lymphocytes/100 WBC (Bld) 10 % Low 15 - 45 % [facility] Monocytes (Bld) [#/Vol] 1.6 10*3/uL High 0.0 - 0.9 10*3/uL [facility] Monocytes/100 WBC (Bld) 13 % 5 - 13 % [facility] Neutrophils (Bld) [#/Vol] 9.3 10*3/uL High 1.8 - 7.5 10*3/uL [facility] Poikilocytosis LM Ql (Bld) Slight Abnormal (none) [facility] RBC morphology finding Nom (Bld) abnormal [facility] Segmented neutrophils/100 WBC (Bld) 75 % 38 - 82 % [facility] Stomatocytes LM Ql (Bld) Slight Abnormal (none) [facility] Laboratory - Microbiology an d Antimicrobial susceptibilityon 04-15-2025 Bacteria identified Anaer cx Nom (Unsp spec) No growth at 5 days [facility] Lower GI hemoglobin spec 1 I A Ql (Stl)Ordered By: Haroldo Alvarez on 04-15-2025 Fecal occult blood Negative Negative [facility] Interpretation and review of laboratory results Normal [facility] MAGNESIUMon 04-15-2025 Magnesium [Mass/Vol] 1.8 mg/dL Normal 1.6-2.6 [facility] Comment on above: Result Comment: YARELI [place] COMMENTS:Higher values can be expected in females during menses. Performed By: #### L AB17, [id number] ####Ethyl Blender: UNA ARCE ([phone])[facility] ([place])[address] [place] [address] MANUAL DIFFERENTIAL (CELLAVI BANDAR)on 04-15-2025 ANISOCYTOSIS PRESENCE IN BLOOD BY LIGHT MICROSCOPY Moderate Abnormal (none) [facility] Comment on above: Performed By: #### L [id number], [id number] ####Ethyl Blender: UNA ARCE ([phone])[facility] ([facility])[address] [place] [address] BAND NEUTROPHILS TOTAL PER COUNTED LEUKOCYTES BY MANUAL COUNT Normal [facility] Comment on above: Performed By: #### L [id number], [id number] ####Ethyl Blender: UNA ARCE ([phone])[facility] ([place])[address] [place] [address] BASOPHILS (10*3/UL) IN BLOOD-CELLAVISION 0.2 10*3/uL Normal 0.0-0.2 [facility] Comment on above: Performed By: #### L [id number], [id number] ####Ethyl Blender: UNA YAZMIN ([phone])[facility] [place] (SBHL[facility])[address] [place] [address] [place] BASOPHILS TOTAL PER COUNTED LEUKOCYTES BY MANUAL COUNT [address] [facility] Comment on above: Performed By: #### L [id number], [id number] ####Ethyl Blender: UNA ONURCER ([phone])[facility] [place] ([place])[address] [place] [address] [place] BASOPHILS/100 LEUKOCYTES IN BLOOD-CELLAVISION 2 % Normal 0-2 [facility] Comment on above: Performed By: #### L [id number], [id number] ####Ethyl Blender: UNA YAZMIN ([phone])[facility] [place] ([facility])[address] [place] [address] [place] BLASTS TOTAL PER COUNTED LEUKOCYTES BY MANUAL COUNT Normal [facility] Comment on above: Performed By: #### L [id number], [id number] ####Ethyl Blender: UNA BERMUDEZPEDRO ([id number])[facility] [place] ([facility])[address] [place] [address] [place] EOSINOPHILS (10*3/UL) IN BLOOD-CELLAVISION 0.1 10*3/uL Normal 0.0-0.[address] [facility] Comment on above: Performed By: #### L [id number], [id number] ####Ethyl Blender: UNA BERMUDEZPEDRO ([id number])[facility] [place] ([facility])[address] [place] [address] [place] EOSINOPHILS TOTAL PER COUNTED LEUKOCYTES BY MANUAL COUNT 1 Normal 0-[address] [facility] Comment on above: Performed By: #### L [id number], [id number] ####Ethyl Blender: UNA BERMUDEZPEDRO ([phone])[facility] [place] ([facility])[address] [place] [address] [place] EOSINOPHILS/100 LEUKOCYTES IN BLOOD-CELLAVISION 1 % Normal 0-[address] [facility] Comment on above: Performed By: #### L [id number], [id number] ####Ethyl Blender: UNA MOHRCER ([phone])[facility] [place] ([facility])[address] [place] [address] [place] HYPOCHROMIA (PRESENCE) IN BLOOD BY LIGHT MICROSCOPY Moderate Abnormal (none) [facility] Comment on above: Performed By: #### L [id number], [id number] ####Ethyl Blender: UNA ARCE ([id number])[facility] [place] ([facility])[address] LYMPHOCYTES (10*3/UL) IN BLOOD-CELLAVISION 1.2 10*3/uL Normal 1.0-4.[address] [facility] Comment on above: Performed By: #### L [id number], [id number] ####Ethyl Blender: UNA ARCE ([phone])[facility] [place] ([facility])[address] [place] [address] [place] LYMPHOCYTES TOTAL PER COUNTED LEUKOCYTES BY MANUAL COUNT 10 Normal [facility] Comment on above: Performed By: #### L [id number], [id number] ####Ethyl Blender: UNA ARCE ([id number])[facility] ([facility])[address] [place] [address] [place] LYMPHOCYTES/100 LEUKOCYTES IN BLOOD-CELLAVISION 10 % Low 15-[address] [facility] Comment on above: Performed By: #### L [id number], [id number] ####Ethyl Blender: UNA ARCE ([phone])[facility] [place] ([facility])[address] [place] [address] [place] METAMYELOCYTES TOTAL PER COUNTED LEUKOCYTES BY MANUAL COUNT Normal [facility] Comment on above: Performed By: #### L [id number], [id number] ####Ethyl Blender: UNA ARCE ([id number])[facility] [place] ([facility])[address] [place] [address] [place] MONOCYTES (10*3/UL) IN BLOOD-CELLAVISION 1.6 10*3/uL High 0.0-0.[address] [facility] Comment on above: Performed By: #### L [id number], [id number] ####Ethyl Blender: UNA ARCE ([id number])[facility] [place] ([place])[address] [place] [address] [place] MONOCYTES TOTAL PER COUNTED LEUKOCYTES BY MANUAL COUNT 13 Normal [facility] Comment on above: Performed By: #### L [id number], [id number] ####Ethyl Blender: UNA ARCE ([phone])[facility] [place] ([place])[address] [place] [address] [place] MONOCYTES/100 LEUKOCYTES IN BLOOD-LUCIANA 13 % Normal 5-13 [facility] Comment on above: Performed By: #### L [id number], [id number] ####Ethyl Blender: UNA ARCE ([id number])[facility] [place] ([place])[address] MYELOCYTES COUNTED BY MANUAL COUNT Normal [facility] Comment on above: Performed By: #### L [id number], [id number] ####Ethyl Blender: UNA ARCE ([phone])[facility] [place] ([facility])[address] [place] [address] [place] NEUTROPHILS TOTAL PER COUNTED LEUKOCYTES BY MANUAL COUNT 77 Normal [facility] Comment on above: Performed By: #### L [id number], [id number] ####Ethyl Blender: UNA ARCE ([id number])[facility] [place] ([facility])[address] [place] [address] [place] POIKILOCYTOSIS (PRESENCE) IN BLOOD BY LIGHT MICROSCOPY Slight Abnormal (none) [facility] Comment on above: Performed By: #### L [id number], [id number] ####Ethyl Blender: UNA ARCE ([phone])[facility] [place] ([place])[address] [place] [address] [place] PROMYELOCYTES TOTAL PER COUNTED LEUKOCYTES BY MANUAL COUNT Normal [facility] Comment on above: Performed By: #### L [id number], [id number] ####Ethyl Blender: UNA ARCE ([id number])[facility] [place] ([facility])[address] [place] [address] [place] RBC MORPHOLOGY IN BLOOD abnormal Normal [facility] Comment on above: Performed By: #### L [id number], [id number] ####Ethyl Blender: UNA ARCE ([phone])[facility] [place] ([facility])[address] [place] [address] [place] SEGMENTED NEUTROPHILS (10*3/UL) IN BLOOD-CELLAVISION 9.3 10*3/uL High 1.8-7.5 [facility] Comment on above: Performed By: #### L [id number], [id number] ####Ethyl Blender: UNA ARCE ([phone])[facility] [place] ([place])[address] SEGMENTED NEUTROPHILS/100 LEUKOCYTES-CE 75 % Normal 38-82 [facility] Comment on above: Performed By: #### L [id number], [id number] ####Ethyl Blender: UNA ARCE ([id number])[facility] [place] ([facility])[address] [place] [address] [place] STOMATOCYTES IN BLOOD BY LIGHT MICROSCOPY Slight Abnormal (none) [facility] Comment on above: Performed By: #### L [id number], [id number] ####Ethyl Blender: UNA ARCE ([phone])[facility] [place] ([facility])[address] UNCLASSIFIED CELLS TOTAL PER COUNTED LEUKOCYTES BY MANUAL COUNT [facility] Comment on above: Performed By: #### L [id number], [id number] ####Ethyl Blender: UNA ARCE ([id number])[facility] [place] ([facility])[address] VARIANT LYMPHOCYTES TOTAL PER COUNTED LEUKOCYTES BY MANUAL COUNT [facility] Comment on above: Performed By: #### L [id number], [id number] ####Ethyl Blender: UNA ARCE ([phone])[facility] ([facility])[address] Magnesium [Mass/Vol]on 04-15 Interpretation and review of laboratory results Normal [facility] No Panel Informationon 04-15 [facility]ophils Manual 2 [facility] E[facility] Manual 1 0 - 1 [facility] Interpretation and review of laboratory results Abnormal [facility] [facility] Lymphocytes Manual 10 [facility] Monocytes Manual 13 [facility] Neutrophils Manual 77 [facility] OCCULT BLOOD, STOOLon 2024 OCCULT BLOOD, STOOL FECAL OCCULT, STOOL Reference Negative Negative ORDER COMMENTS: Methodology: Immunoassay Normal [facility] Comment on above: Performed By: #### L [id number] ####Ethyl Blender: UNA ARCE ([id number])[facility]ITAL[facility] ([facility])[address] Progress Noteon 04-15-2025 Progress Note Normal [facility] Progress Note Normal [facility] Progress [facility] Progress [facility] XR Chest Single viewon 04-15 [facility] EMERGENCY [facility]PART[facility] RADIOLOGY SYSTEM [facility] EMERGENCY DEPARTMENT RADIOLOGY SYSTEM [facility] Radiology Study observation (narrative) Lynette Balderrama alth [id number] 04-14-[address]25 [id number] [facility] Bacteria identified Anaer cx Nom (Unsp spec)on 04-14-2025 Interpretation and review of laboratory results Normal [facility] CBC W Auto Differential pane l (Bld)on 04-14-2025 Erythrocyte distribution width (RBC) [Ratio] 25.4 % High 11.5 - 15.0 % [facility] Hematocrit (Bld) [Volume fraction] 27.3 % Low 40.0 - 52.0 % [facility] Hemoglobin (Bld) [Mass/Vol] 7.6 g/dL Low 13.0 - 18.0 g/dL [facility] MCH (RBC) [Entitic mass] 23.2 pg Low 26. 0 - 34.0 pg [facility] MCHC (RBC) [Mass/Vol] 27.8 % Low 30.5 - 36.0 % [facility] MCV (RBC) [Entitic vol] 83.5 fL 77.0 - 99.0 fL [facility] Platelet mean volume (Bld) [Entitic vol] 8.9 fL Low 9.0 - 12.7 fL [facility] Platelets (Bld) [#/Vol] 293 10*3/uL 140 - 440 10*3/uL [facility] RBC (Bld) [#/Vol] 3.27 10*6/uL Low 4.40 - 5.9 0 10*6/uL [facility] WBC (Bld) [#/Vol] 12.3 10*3/uL High 3.6 - 10.7 10*3/uL [facility] CBC WITH AUTO DIFFERENTIALon 04-14-2025 Erythrocyte distribution width (RBC) [Ratio] 25.4 % High 11.5-15.0 [facility] Comment on above: Performed By: #### L [id number], [id number] ####Ethyl Blender: UNA ARCE ([phone])[facility] ([facility])[address] [place] [address] Hematocrit (Bld) [Volume fraction] 27.3 % Low 40.0-52.0 [facility] Comment on above: Performed By: #### L [id number], [id number] ####Ethyl Blender: UNA ARCE ([id number])[facility] ([facility])[address] [place] [address] Hemoglobin (Bld) [Mass/Vol] 7.6 g/dL Low 13.0-18.0 [facility] Comment on above: Performed By: #### L [id number], [id number] ####Ethyl Blender: UNA ARCE ([phone])[facility] ([facility] [place] [address] MCH (RBC) [Entitic mass] 23.2 pg Low 26.0-34.0 [facility] Comment on above: Performed By: #### L [id number], [id number] ####Ethyl Blender: UNA ARCE ([id number])[facility] ([facility])[address] MCHC 27.8 % Low 30.5-36.[address] [facility] Comment on above: Performed By: #### L [id number], [id number] ####Ethyl Blender: UNA ARCE ([phone])[facility] ESC[facility] ([facility])[address] MCV (RBC) [Entitic vol] 83.5 fL Normal 77.0-99.0 S [facility] Comment on above: Performed By: #### L [id number], [id number] ####Ethyl Blender: UNA ARCE ([phone])[facility] ([facility])[address] Platelet mean volume (Bld) [Entitic vol] 8.9 fL Low 9.0-12.7 [facility] Comment on above: Performed By: #### Gilbert [id number], [id number] ####Ethyl Blender: UNA ARCE ([phone])[facility]ENTERAngel SANCHEZSIERRA VISTA HOSPITALN ([facility])[address] Platelets (Bld) [#/Vol] 293 10*3/uL Normal 140-440 [facility] Comment on above: Performed By: #### L [id number], [id number] ####Ethyl Blender: UNA ARCE ([phone])[facility]ENTERAngel [facility]ER[facility] HOSPITALN ([facility])[address] RBC (Bld) [#/Vol] 3.27 10*6/uL Low 4.40-5.90 [facility] Comment on above: Performed By: #### L [id number], [id number] ####Ethyl Blender: UNA ARCE ([phone])[facility]ER[facility]OSPITALN ([facility])[address] WBC (Bld) [#/Vol] 12.3 10*3/uL High 3.6-10.7 [facility] Comment on above: Performed By: #### L [id number], [id number] ####Ethyl Blender: UNA ARCE ([id number])[facility] MCKAYN ([facility])[address] COMPREHENSIVE METABOLIC PANE Anant 04-14-2025 Albumin [Mass/Vol] 2.1 g/dL Low 3.4-4.[address] [facility] Comment on above: Performed By: #### L AB103, LAB17 ####Ethyl Blender: UNA ARCE ([phone])[facility] [place] ([facility])[address] ALP [Catalytic activity/Vol] 47 U/L Normal 40-[address] [facility] Comment on above: Performed By: #### L AB103, LAB17 ####Ethyl Blender: UNA ARCE ([phone])[facility]IERRA [facility]IST[facility] HOSPITALN ([facility])[address] ALT [Catalytic activity/Vol] U/L Normal <[address] [facility] Comment on above: Performed By: #### L AB103, LAB17 ####Ethyl Blender: UNA ARCE ([phone])[facility] ([facility])[address] Anion gap [Moles/Vol] 9 mmol/L Normal 3-13 [facility] Comment on above: Performed By: #### L AB103, LAB17 ####Ethyl Blender: UNA ARCE ([id number])[facility] ([facility])[address] AST [Catalytic activity/Vol] 19 U/L Normal <[address] [facility] Comment on above: Performed By: #### L AB103, LAB17 ####Ethyl Blender: UNA ARCE ([id number])[facility] ([facility])[address] Bilirubin [Mass/Vol] 0.6 mg/dL Normal <1.2 [facility] Comment on above: Performed By: #### L AB103, LAB17 ####Ethyl Blender: UNA ARCE ([id number])[facility] ([facility])[address] Calcium [Mass/Vol] 8.1 mg/dL Low 8.8-10.0 [facility] Comment on above: Performed By: #### L AB103, LAB17 ####Ethyl Blender: UNA ARCE ([id number])[facility] [place] ([facility])[address] Chloride [Moles/Vol] 92 mmol/L Low 98-107 [facility] Comment on above: Performed By: #### L AB103, LAB17 ####Ethyl Blender: UNA ARCE ([phone])[facility] [place] ([facility])[address] CO2 [Moles/Vol] 39 mmol/L High 23-31 [facility] Comment on above: Performed By: #### L AB103, LAB17 ####Ethyl Blender: UNA ARCE ([id number])[facility] [place] ([facility])[address] Creatinine [Mass/Vol] 1.43 mg/dL High 0.72-1.25 [facility] Comment on above: Performed By: #### L AB103, LAB17 ####Ethyl Blender: UNA ARCE ([phone])[facility] [place] ([facility])[address] [place] [address] [place] GLOMERULAR FILTRATION RATE ML/MIN/1.73 SQ M.PREDICTED 46.8 mL/min/1.73m*2 Low >60.0 [facility] Comment on above: Result Comment: Calc ulation based on the Chronic Kidney Disease Epidemiology Collaboration (CKD-EPI) equation refit without adjustment for race Performed By: #### L AB103, LAB17 ####Ethyl Blender: UNA ARCE ([phone])[facility] [place] ([facility])[address] [place] [address] [place] Glucose [Mass/Vol] 97 mg/dL Normal 82-115 [facility] Comment on above: Performed By: #### L AB103, LAB17 ####Ethyl Blender: UNA STAUFFERMELANIE ([phone])[facility] [place] ([facility])[address] Potassium [Moles/Vol] 3.8 mmol/L Normal 3.5-5.1 [facility] Comment on above: Result Comment: [facility] potassium values may be up to 0.5 mmol/L lower than serum values. Performed By: #### L AB103, LAB17 ####Ethyl Blender: UNA ARCE ([phone])[facility] ([facility])[address] Protein [Mass/Vol] 5.7 g/dL Low 6.4-8.3 [facility] Comment on above: Performed By: #### L AB103, LAB17 ####Ethyl Blender: UNA ARCE ([id number])[facility] ([facility])[address] Sodium [Moles/Vol] 140 mmol/L Normal 136-145 [facility] Comment on above: Performed By: #### L AB103, LAB17 ####Ethyl Blender: UNA ARCE ([phone])[facility] ([facility])[address] Urea nitrogen [Mass/Vol] 39 mg/dL High 9-23 [facility] Comment on above: Performed By: #### L AB103, LAB17 ####Ethyl Blender: UNA ARCE ([id number])[facility] [place] ([facility])[address] Comprehensive metabolic 1998 panelon 04-14-2025 Albumin [Mass/Vol] 2.1 g/dL Low 3.4 - 4.8 g/dL [facility] ALP [Catalytic activity/Vol] 47 U/L 40 - 150 U/L [facility] ALT [Catalytic activity/Vol] U/L NINF - 40 U/L [facility] Anion gap [Moles/Vol] 9 mmol/L 3 - 13 mmol/L [facility] AST [Catalytic activity/Vol] 19 U/L NINF - 34 U/L [facility] Bilirubin [Mass/Vol] 0.6 mg/dL NINF - 1.2 mg/dL [facility] Calcium [Mass/Vol] 8.1 mg/dL Low 8.8 - 10. 0 mg/dL [facility] Chloride [Moles/Vol] 92 mmol/L Low 98 - 10 7 mmol/L [facility] CO2 [Moles/Vol] 39 mmol/L High 23 - 31 mmol/L [facility] Creatinine [Mass/Vol] 1.43 mg/dL High 0.72 - 1.25 mg/dL [facility] GFR/1.73 sq M.predicted (S/P/Bld) [Vol rate/Area] 46.8 mL/min Low - PINF [facility] Glucose [Mass/Vol] 97 mg/dL 82 - 115 mg/dL [facility] Interpretation and review of laboratory results Abnormal [facility] Potassium [Moles/Vol] 3.8 mmol/L 3.5 - 5.1 mmol/L [facility] Protein [Mass/Vol] 5.7 g/dL Low 6.4 - 8.3 g/dL [facility] Sodium [Moles/Vol] 140 mmol/L 136 - 145 mmol/L [facility] Urea nitrogen [Mass/Vol] 39 mg/dL High 9 - 23 mg/d L [facility] Consulton 04-14-2025 Consult Normal [facility] ECG 12-LEADon 04-14-2025 ECG 12-LEAD IMPRESSION: Sinus arrhythmia LEFT ANTERIOR FASCICULAR BLOCK MULTIPLE ATRIAL PREMATURE COMPLEXES Compared to ECG 04/05/2025 15:59:31 No significant changes Electronically Signed On 04-14-2025 07:12:58 EDT by Ronal Maurice Normal [facility] Laboratory - Chemistry and C hemistry - challengeon 04-14-2025 Magnesium [Mass/Vol] 1.9 mg/dL 1.6 - 2 .6 mg/dL [facility] Laboratory - Hematology and Cell countson 04-14-2025 Anisocytosis Ql (Bld) Slight Abnormal (none) [facility] Basophils (Bld) [#/Vol] 0.1 10*3/uL 0.0 - 0.2 10*3/uL [facility] Basophils/100 WBC (Bld) 1 % 0 - 2 % [facility] Eosinophils (Bld) [#/Vol] 0.4 10*3/uL 0.0 - 0.5 10*3/uL [facility] Eosinophils/100 WBC (Bld) 3 % 0 - 6 % [facility] Hypochromia Ql (Bld) Moderate Abnormal (none) [facility] Lymphocytes (Bld) [#/Vol] 0.9 10*3/uL Low 1.0 - 4.3 10*3/uL [facility] Lymphocytes/100 WBC (Bld) 7 % Low 15 - 45 % [facility] Monocytes (Bld) [#/Vol] 1.8 10*3/uL High 0.0 - 0.9 10*3/uL [facility] Monocytes/100 WBC (Bld) 15 % High 5 - 13 % [facility] Neutrophils (Bld) [#/Vol] 9.1 10*3/uL High 1.8 - 7.5 10*3/uL [facility] Poikilocytosis LM Ql (Bld) Slight Abnormal (none) [facility] RBC morphology finding Nom (Bld) abnormal [facility] Segmented neutrophils/100 WBC (Bld) 74 % 38 - 82 % [facility] Stomatocytes LM Ql (Bld) Moderate Abnormal (none) [facility] Variant lymphocytes (Bld) [#/Vol] 0.1 10*3/uL High NINF - 0.0 10*3/uL [facility] Variant lymphocytes/100 WBC (Bld) 1 % High NINF - 0 % [facility] Laboratory - Microbiology an d Antimicrobial susceptibilityon 04-14-2025 Bacteria identified Anaer cx Nom (Unsp spec) No growth at 5 days [facility] MAGNESIUMon 04-14-2025 Magnesium [Mass/Vol] 1.9 mg/dL Normal 1.6-2.[address] [facility] Comment on above: Result Comment: YARELI [place] COMMENTS:Higher values can be expected in females during menses. Performed By: #### L AB103, LAB17 ####Ethyl Blender: UNA ARCE ([phone])[facility] ([facility])[address] [place] [address] MANUAL DIFFERENTIAL (CELLAVI BANDAR)on 04-14-2025 ANISOCYTOSIS PRESENCE IN BLOOD BY LIGHT MICROSCOPY Slight Abnormal (none) [facility] Comment on above: Performed By: #### L [id number], [id number] ####Ethyl Blender: UNA ARCE ([id number])[facility] [place] ([facility])[address] [place] [address] [place] BAND NEUTROPHILS TOTAL PER COUNTED LEUKOCYTES BY MANUAL COUNT Normal [facility] Comment on above: Performed By: #### L [id number], [id number] ####Ethyl Blender: UNA STAUFFERMELANIE ([phone])[facility] [place] ([facility])[address] [place] [address] [place] BASOPHILS (10*3/UL) IN BLOOD-CELLAVISION 0.1 10*3/uL Normal 0.0-0.[address] [facility] Comment on above: Performed By: #### L [id number], [id number] ####Ethyl Blender: UNA ARCE ([id number])[facility] [place] ([facility])[address] [place] [address] [place] BASOPHILS TOTAL PER COUNTED LEUKOCYTES BY MANUAL COUNT [address] [facility] Comment on above: Performed By: #### L [id number], [id number] ####Ethyl Blender: UNA ARCE ([id number])[facility] [place] ([facility])[address] [place] [address] [place] BASOPHILS/100 LEUKOCYTES IN BLOOD-CELLAVISION 1 % Normal 0-2 [facility] Comment on above: Performed By: #### L [id number], [id number] ####Ethyl Blender: UNA ARCE ([id number])[facility] [place] ([facility])[address] [place] [address] [place] BLASTS TOTAL PER COUNTED LEUKOCYTES BY MANUAL COUNT Normal [facility] Comment on above: Performed By: #### L [id number], [id number] ####Ethyl Blender: UNA ARCE ([id number])[facility] [place] ([facility])[address] [place] [address] [place] EOSINOPHILS (10*3/UL) IN BLOOD-CELLAVISION 0.4 10*3/uL Normal 0.0-0.[address] [facility] Comment on above: Performed By: #### L [id number], [id number] ####Ethyl Blender: UNA ARCE ([id number])[facility] [place] ([facility])[address] EOSINOPHILS TOTAL PER COUNTED LEUKOCYTES BY MANUAL COUNT 3 High 0-[address] [facility] Comment on above: Performed By: #### L [id number], [id number] ####Ethyl Blender: UNA ARCE ([phone])[facility] [place] ([facility])[address] [place] [address] [place] EOSINOPHILS/100 LEUKOCYTES IN BLOOD-CELLAVISION 3 % Normal 0-[address] [facility] Comment on above: Performed By: #### L [id number], [id number] ####Ethyl Blender: UNA ARCE ([id number])[facility] [place] ([facility])[address] HYPOCHROMIA (PRESENCE) IN BLOOD BY LIGHT MICROSCOPY Moderate Abnormal (none) [facility] Comment on above: Performed By: #### L [id number], [id number] ####Ethyl Blender: UNA ARCE ([id number])[facility] [place] ([facility])[address] LYMPHOCYTE VARIANT/100 LEUKOCYTES IN BLOOD- CELLAVISION 1 % High <=[address] [facility] Comment on above: Performed By: #### L [id number], [id number] ####Ethyl Blender: UNA ARCE ([id number])[facility] [place] ([facility])[address] [place] [address] [place] LYMPHOCYTES (10*3/UL) IN BLOOD-CELLAVISION 0.9 10*3/uL Low 1.0-4.[address] [facility] Comment on above: Performed By: #### L [id number], [id number] ####Ethyl Blender: UNA ARCE ([id number])[facility] ([facility])[address] [place] [address] [place] LYMPHOCYTES TOTAL PER COUNTED LEUKOCYTES BY MANUAL COUNT 7 Normal [facility] Comment on above: Performed By: #### L [id number], [id number] ####Ethyl Blender: UNA ARCE ([id number])[facility] ([facility])[address] [place] [address] [place] LYMPHOCYTES/100 LEUKOCYTES IN BLOOD-CELLAVISION 7 % Low 15-45 [facility] Comment on above: Performed By: #### L [id number], [id number] ####Ethyl Blender: UNA MOHRCER ([id number])[facility] ([facility])[address] [place] [address] [place] METAMYELOCYTES TOTAL PER COUNTED LEUKOCYTES BY MANUAL COUNT Normal [facility] Comment on above: Performed By: #### L [id number], [id number] ####Ethyl Blender: UNA ARCE ([id number])[facility] [place] ([facility])[address] [place] [address] [place] MONOCYTES (10*3/UL) IN BLOOD-CELLAVISION 1.8 10*3/uL High 0.0-0.9 [facility] Comment on above: Performed By: #### L [id number], [id number] ####Ethyl Blender: UNA ARCE ([id number])[facility] ([facility])[address] [place] [address] [place] MONOCYTES TOTAL PER COUNTED LEUKOCYTES BY MANUAL COUNT 15 Normal [facility] Comment on above: Performed By: #### L [id number], [id number] ####Ethyl Blender: UNA MOHRCER ([id number])[facility] ([facility])[address] [place] [address] [place] MONOCYTES/100 LEUKOCYTES IN BLOOD-LUCIANA 15 % High 5-13 [facility] Comment on above: Performed By: #### L [id number], [id number] ####Ethyl Blender: UNA ARCE ([id number])[facility] ([facility])[address] [place] [address] [place] MYELOCYTES COUNTED BY MANUAL COUNT Normal [facility] Comment on above: Performed By: #### L [id number], [id number] ####Ethyl Blender: UNA ARCE ([id number])[facility] ([facility])[address] NEUTROPHILS TOTAL PER COUNTED LEUKOCYTES BY MANUAL COUNT 75 Normal [facility] Comment on above: Performed By: #### L [id number], [id number] ####Ethyl Blender: UNA ARCE ([phone])[facility] [place] ([facility])[address] POIKILOCYTOSIS (PRESENCE) IN BLOOD BY LIGHT MICROSCOPY Slight Abnormal (none) [facility] Comment on above: Performed By: #### L [id number], [id number] ####Ethyl Blender: UNA ARCE ([id number])[facility] [place] ([facility])[address] PROMYELOCYTES TOTAL PER COUNTED LEUKOCYTES BY MANUAL COUNT Normal [facility] Comment on above: Performed By: #### L [id number], [id number] ####Ethyl Blender: UNA ARCE ([id number])[facility] ([facility])[address] [place] [address] [place] RBC MORPHOLOGY IN BLOOD abnormal Normal [facility] Comment on above: Performed By: #### L [id number], [id number] ####Ethyl Blender: UNA ARCE ([id number])[facility] [place] ([facility])[address] [place] [address] [place] SEGMENTED NEUTROPHILS (10*3/UL) IN BLOOD-CELLAVISION 9.1 10*3/uL High 1.8-7.5 [facility] Comment on above: Performed By: #### L [id number], [id number] ####Ethyl Blender: UNA ARCE ([id number])[facility] [place] ([facility])[address] [place] [address] [place] SEGMENTED NEUTROPHILS/100 LEUKOCYTES-CE 74 % Normal 38-82 [facility] Comment on above: Performed By: #### L [id number], [id number] ####Ethyl Blender: UNA ARCE ([id number])[facility] ([facility])[address] STOMATOCYTES IN BLOOD BY LIGHT MICROSCOPY Moderate Abnormal (none) [facility] Comment on above: Performed By: #### L [id number], [id number] ####Ethyl Blender: UNA ARCE ([id number])[facility] ([facility])[address] UNCLASSIFIED CELLS TOTAL PER COUNTED LEUKOCYTES BY MANUAL COUNT Normal [facility] Comment on above: Performed By: #### L [id number], [id number] ####Ethyl Blender: UNA ARCE ([id number])[facility] ([facility])[address] VARIANT LYMPHOCYTES (10*3/UL) IN BLOOD-CELLAVISION 0.1 10*3/uL High <=0.0 [facility] Comment on above: Performed By: #### L [id number], [id number] ####Ethyl Blender: UNA ARCE ([id number])[facility] ([facility])[address] VARIANT LYMPHOCYTES TOTAL PER COUNTED LEUKOCYTES BY MANUAL COUNT 1 Normal [facility] Comment on above: Performed By: #### L [id number], [id number] ####Ethyl Blender: UNA ARCE ([id number])[facility] ([facility])[address] [place] [address] [place] Magnesium [Mass/Vol]on 04-14 Interpretation and review of laboratory results Normal [facility] No Panel Informationon 04-14 [facility] EMERGENCY [facility]PART[facility] RADIOLOGY SYSTEM [facility] EMERGENCY [facility]PART[facility] RADIOLOGY SYSTEM [facility] Radiology Study observation (narrative) [facility] Case Screening Location [facility], [address] [place] [address]; CLIA: [id number]; Joint Commission: [id number]; CAP: [id number] [facility] Comment u6tnxQXmCKSaaEVvCFCd M PikidNlKQQynCSqC7Ojog jkSJzbFC1gDV5ncSpcsKM kyAKjPESmUjXhh7aya191 gDFpm8vzILZHDPafGBDKQ Tf9oXbaY85bs8N9WjzjQ7 2fvOQfBVB3XWOnJMLqeFD bNOOdHCF5RPZeiPTbU4ga IRIvVT3yfgesYHujUNguW XXdkFU3YSXxlPNpS4XySD PnMUknBSDipyf7IlBvXc8 vdGVyeTcyMFxwYXJkXHBs YWluXGZzMjAgUGxlYXNlI CRrXQRrd9AwP3rngORiIG ZsQJXme0UmCZZ6nL3op5a 8HXQuYVKhoFRoDQaPFgD1 HQQjBYLvlWKyUmr3TPN2w SIlJEVrQBz9gG3xKFiur7 8uf4DsJewjUTX2 [facility] Disclaimer q3fixPTdNSCqlEKyZeBj M JInHULnk4fvVZRzfLUhPs EwMzNcZnRuYmpcdWMxXGR xGcWsj3lbb981dPGeu0bt YHWlHeQ8bSPbXISoN36jV GSHS430UUEmAJzkz1vco1 AqKFPfmCUxw9H2QAPYYSv bYRDUVKs8iMiuP21im5Y6 MtrvX7bwDGBiKCRbD6VmU Y7rDIFdAme9UEY8RYS2CB BaLBEcZ3NrTM5sLWFntWT tOBe9j3wcoNelQDHoZYF2 f3rfWGbhwwHoYF2fhl2co Vx1g3vabmQgYGYkNMDifF QNJUNeJ6NwnXvhAc5ugLh 4kJezLjedQTS0Obr6UH6a yx73luw8fGfwAONawdvpT qT2AUvmVUSabsflZJo5VH enFVYuuSO3DOMxzGLbY1A tNGUcES3mjqk2HZJ0KSyz TEOmPzP7RNTnvOTsAUWja HzkXPsdj297XPM6VfWmVN 6jE9Lhz2E3wW7qnDCuRPJ byFImTbDaLHCqrd9hnRNj JXeem6FqANE6orV9kIJbi JYzEQXuWA06Vpapk7EqBc gaVZG3XHVsanTrl3Xdx7s xNdXsjxGeA3blJ5VbBADo QAHdVKIlXlZxwjPzp1Sui 3LtoDZgyIf2i0huFXLoXU TwbVcqc1aaXAT5PFPzX8F 3iHXty9bzJIvqXMCaaYZ6 epH1ETJrbHFcH4UkaI4aA DZoMO5vezy9p5lsRFS9FN bfDPYuGeI1ayA7EYAzcCM pZJMecWtkFLgfw003TLK9 UhZbJONob0GhV1QyjRhaT 88wuLdgG29qSQStrYbxmR 4doKyfaC9sEwZkHnEkSYf xbFxwbGFpblxmMVxmczE2 BCaaqrecYDZjDRatA5ksB jUsZATmhNcnPDkyw8OrOV ChWRYwRKWnGBfxP1rufU9 xxubhYMflXCFxjRokf6vn FsIjqCI7XC9fggPoOPHec LgsonP8mmPixEjytV8cfK 9ykFccbV7pjAFymPM2sgt sIGluIHNpdHUgaHlicmlk bDhveJawmacuaP0rHZC7n HYeXCN7wWAeOARdVTKaUO AbxD03bl2opVAaguTzR9B iX4NsyNKjdPszRqzupVFt kNEeOn9xrDNjBG5vCMWbf INhD4JcEI1lMCHfrgdjSM IgVGhlIHVzZSBvZiBvbmU pj7NlvG3qHSHiTJYsDP36 smSfluV2iFMvADKgwkZiz GVzdHMgaXMgcmVndWxhdG YzIHRlSJXdYKNfUWg7sRH ot5TvR0usvSXjxgPwS4Zw jUUeHYXHHT2mAFytm8Nrb GEmwXCeh9OfRUAzHQEceG 4qIRMmNH0eNVMsOTtnDDC sdpVczx9sjjUuLLNgHXKp V3CeqyuwsBkmhbWyFSCok x7jneSaLIF3OKBuWKEclI oyyZQffKQvKSMbzoZ7n6E yHVUhx5ApU8IaeTAuDOEu xISpAGL5r3DpoV8dDTemi NXyEFFpCF8tvWZuHFMuDJ NsZWFyZWQgYnkgdGhlIFV ZYUCbs1EeZL2mSTBcqJyj SGMymO5vo2ImKOQaz13uC EZEQSkuIFRoZSBGREEgaG FzIGRldGVybWluZWQgdGh inHMalVQhTXByVLLaNZ0y OBJniuMfvONjr3VrhSKod aXrb6BombVvUQGzNKD2Fm BccGFyXHBhciBBbGwgaW1 ntB3jh7SzkE4wETbhseKr bPYrGo2nzFVqLO7xWFOci mFmZmluIGVtYmVkZGVkIH Hlz4E8MM8jGRDbhb3zyzm gmBUpvF5wtKKnrmQuJK1t RT1tB0W7nXFjFHIkdzZcf 3poWGn6tFOqFTFeoEVhmI SqQxggMHP7VWEvPZK2jdX ucaFqQULqpLhedKO0lORv AEToITFeDACeFL39Z7Tah 4QxV5goCW73RJTbWWZbKI EtwwKzn0heNEYva6rsGSK erDGaU7AzEFDefNLahgac GfLnQHT3PYJtXHD5gMNjW HCiK4ZqtBRgtCWzaJ85WY 6wdLQ8IL9cLDP3LCwnhL6 zCdKUaS63id1nlPF8s6Cd IK8cD8QxBOCit7F3otHsD MPgVO7psBKkIIKgGWLwsL lkYXRlZCBvbiBkZWNhbGN jUiqnWRR3eXRkbEJqKfBB DZW6bOZlBMWqt2BnKJOwF IQwqrBkjhAoUTKdLJC9pE AsGIEfuGLcd20zD4g1WP9 wwLvdWFGyzYRnKKOkv8Zh uTItlWf7xZWdRuRqFRofA WDoGXxvvZj4jPA6JF3tVY PcT9HwD2imlGUiXFWxXYW ofTGwyx4dqSRwsX== [facility] Description p4urzNIxIWPnrXFNNBWt M KWnGV0esQlajXy8rBzlNQ GfufU7mFRdRDhgk9ffSLT 5c6zkihQANjmrFZOwSP6d IWabMZKuRM4hHkPdOWZsB mYxXHBhcGVydzEyMjQwXH CexCBxdLT6LEXvEY6fcly nOKhcGUuwIWLivzE4LRZz kRIcU1FcUPMuTD5bxhqaT LI4MURZTnumAf7hfKTjcU ANCntcZjFcZmNoYXJzZXQ zSIDle5wilbWHeycdhOp7 MMh9LVQvVCCzmUTmw4D3Z Efyt5voj4ThY0Pju1JpZE b5dM1LAhmtO54aw0R7Gkd 4FXFcUBz3JJzjGBLdHZBv Bdv2AWc5W7nrUYJtWHggV ODkHNwuoWTpFSf5JFivs5 OmoKPzNPi2GJdgYSZbO1O pC9UgUBcxLtZfYNsjGTCq HZBmNRqxVBBvA5SULGOnV lB8DmA0UQVbAGq1FTgsQu SNHZX7TOy7GzX0RKf8VHO jRB1kLOomxLAvNMzbMmcw BXrsC522SJydGYRgP4ZqR 3QgXFxzZyBcXGlkIDUxMD IpFNraTBKvZ7TXIBGaCoR 6WuL1BRAkQQm4UCzpA9AX MZRnJEW1NPP6MhDnGkN0H Aj7ZYSNDy6zXXS0EAP3UW ilWJE7YEAlYMbdkytdAFs 0IDIgXFxzcyAzIFxcZmwg BMxzY16yoWViHVACYslgq GFpblxlcGljTmVzdERvYz TzWUlacVXyjQFkMX6KILm 0cmNoXGNmMVxmczIwIEEg BKPVmHQ8ukRqYSBtmac3g YviOivucKT7YREpRYEqNE kaYTNnZCk2BJAbzFosJFI nt4VcQ5S4XADjUIroa7zz FOYtKJbdk0AbHLsQPEUTN B2VVF3xdOB1WJdGGCCOG3 oNoTQfKKRtP7vplYO1z7f uaDXeu7q3BGivXBG7dGMd g9NzqVrcIyosaBP2RBtuP rqnqY8igTRKJAEHSnaNIf vxgqMbGQ3NELDOUK7NlXY yBGBbF1hjmZX3v2tmvDTh w5c6TPsmRYC2gYrqyBYdl lxsdHJjaFxmczIwICBccH EtpORsuBzfGpfmxOC9SHl rLlojjH2gcCFHXRCHCdyJ RsuhsfAfDB8OUXVPFvIGS X57KFI1JSY9pZT4Lc67PE OqXITfpWWvDAdgN242t7L ucysgu5dytBKfSHcdYkbg pFPxeqG0VKpTBTWGGTcSA oPaYI7oBEdHX4CDSeG0XT H7MWB1tYJ2Sg58VZIqRIH vyQTyOUijQ088LWQkRVtd QAp9urPjWSRjLiDeQEVjn ZsvAQWpV5ZxziQuFWxltl 35EIY9q2vqeQCoIZhiRju keWTyyrT3CVuXVKJTKAvO OyMtTO0uZDuAM7LRWLqLB dhcYWddZeQ9C3ybrWnwOx mwhpFqpYSeRqGNrB3encC vkRfqPzgxiUH6LQkhTpsd pA0tfENKKLZEZnaAYlhyo lUhIN1HAGYAMH9HrVGlFB DiOXnhcTQ9h2xhrDMfu7d 2KKlvQBB4rTccrRJqpzil yFEemAkpdrTuEI3pQYYld iANClxiXGNmMiBNYXRlcm fqeHXjDHEdxQWqPTX5RIL lDSAsAOYeOFQmaS8NdhKj IGFuZCAxIENlbGwgQmxvY 7lkvlfuaGFmEG4UQLVsjt ANClxmMlxmczIyXHBhciA OOcdeUVGwULAqhHOWy6Fp DXXXJzf1HH5GSKNuQJFlx JROCOY6UW4nNYttQRCwY2 AdE0GzjyM0w5ggePedx0H pzYWjPU6epTPdJQ3DURFp stAuXPagjTghhE7sVTc7 [facility] Pathologist Interpretation Location [facility], [address] [place] [address]; CLIA: [id number]; Joint Commission: HCO [id number]; CAP: [id number] [facility] Pathology report final diagnosis Narrative w7jdaGZsKNEgiCBmCUJrS XmiiePiESBekTYlM0Lwhr adJCreDH8hNX5opTuayCW obAOlQTCqOcOal6yvy063 qLTub1lgNRCDXWzmFHETS Ct5aJhhR16yj4J5QvnuG8 cyWXM2MOjnyjRfabd5ENZ izBS4JQv0OQWldQKdgvMh BcIcUYGutAZimHB7MLRyO M3jregxZTjbACdyWDQfyw U3BQStgYVlP8XcWXRtQU8 lfeuaGPU9FEtzCAIfUOS9 EpFeEFLgj0Nlvxw9YzQfa GFyZFxwbGFpblxmczIwXG NmMSBBICAtIFBsZXVyYWw hZ2L7vLT4HGIMbHaqnWIc ZVCjUQnzXex8hXMoHNE5z R2kl6r1AjaxGrWlNAWhwS TgNQ0PHW1HIEhHRxDMEGL DRUxMUyBJREVOVElGSUVE WxxfFUJeXePNU9PUPlMpI 6LGXHDYHGYVX1RQEldzDS KsIF0vsEOohCP7fQ5cLGL yZXNlbnQuIFxwYXJ9 [facility] CV EPIPHANY [facility] Atypical Lymphocytes Manual 1 [facility] Basophils Manual 1 [facility] Eosinophils Manual 3 High 0 - 1 [facility] Interpretation and review of laboratory results Abnormal [facility] Lymphocytes Manual 7 [facility] Monocytes Manual 15 [facility] Neutrophils Manual 75 [facility] No Panel InformationOrdered By: Marianna Francois on 04-14-2025 [facility] Work Phone: No Panel InformationOrdered By: Danyel Platt on 04-14-2025 Case Report [facility] Work Phone: Case Screening Location [facility], [address] [place] [address]; CLIA: [id number]; Joint Commission: HCO [id number]; CAP: [id number] [facility] Work Phone: Comment b9xlyLKeIPNxxWEdZKAh M TuotuNkAMXqfRSeJ4Thqh flPNyfEE7sPJ7gsNcrjVZ mnADqOIKjYhZqe9woq580 rXJsx2hxBNSGJEpzJHJSM On5cOglN61wx0X1QluyF7 3xyKYsTCT0KLQzFJUgaPX nFFAhUFK4QBXykZJaQ8vh EJKyOI5qimoeKYfdZFgcV WVzdKI0TWQwnNFdX3JqMH RrRJhzMANyjlf9ZiDzXx2 vdGVyeTcyMFxwYXJkXHBs JCsuDSAgLaKuJS9fdG6ij EaegB2dbPZzvXG7inlcJQ yzyWheH58wlEHiyFH5NQS SXpCcnbCxH7YhkvC5nI4s biBoaWdobGlnaHQgbWVzb 8OlSItePCyvM5YfzVJlWW BCRVIgRVAgNCwgVFRGLTE cMLGZRWyjIY1bSSRGDxLl NUPdNX5cN0J9oGQjPlLqB 0WfUfEohZrppOrbS6u3kq IdwL0atp34avEhUQUju5B qGUndnw2peEJqiR== [facility] Work Phone: Disclaimer x4ceiQUlIGTnmFSeHeZl M VTwDIXqi3vyNLKosYOjQg EwMzNcZnRuYmpcdWMxXGR iSsZml6wub375hNDvj3on VKGuXhS0iXGoFLOcI39iC POYT699ULVhBYere3jnr3 EuFFRxyDElt3Y8PWOPBVh jEEVNEPp8sHryK68xm1V2 EjcyQ9wwCCIoSNXxP3LrD Q5dYMStBkk4RAN6DAB2OB NdNOBmW4TnTV9xKTEikMX yNRh9n8fnqCoiEDXkOUY1 j6okYRtulsGgNE1mec1es Gv9n3jjndMoLVIgYLFquA HDJUEkT7BryOaaIv0odFy 7iAnjTvgkHIW1Jaw4KZ6y so09wim2mNexXGZjgezcK gI9ZXziIHHlxqnkSRk6MV odUPEjlZF6RZIsjFIdL5B vPIPgVX2hrys2HFE5AOep BDUwVbY7HTUpwBLzHMFct YezTSviz110RJW0PyPcUN 0yL8Cgu1H8uO7sjXKnKNK uuEAhMvZhHPEwja8fvEEa CDajm0GpPYS4xgK0bIUne RPwAHSpHV25Xypxn3KjXd wkAOY4NGRddoZru1Xfs0i rMvEiqxPkV7zvM3VqHTOy WJJsCQUnYoFtbuJpe8Bzh 5ZnuGPptPk6c2qpQWGfIG UwjUsax7hzDTE4ITAuJ7C 3jUCmr5evAMgbJLRukFK3 veD1GCKxmKMdD5GhdW2iF EGlIR1uwol0b8ipLPN2YA khGLLuAwG9gdL4ZPUjxCM lPAEeyCpvQDtip543TYC7 MhZfDHQij9PhC9CpyDsuE 52oeQmaB03vOYZxaLqggP 5foKewhG6rEcNnOeTzIQy xbFxwbGFpblxmMVxmczE2 QXnyerxwQMAtPIdcD3veJ rTnGPObgHxbBWymq0KwVC XsYATkBYHnZSxoC7jpfS4 vpxscURttLFZblTygf6ha ZfWvvNN5XP6pmnIoBVFqk RvogyH8enKhoFasmP1coA 5owJncoK5pyXFjmZD2ucx sIGluIHNpdHUgaHlicmlk sNrlvSubbauvrZ6tIMD4z MVnUMK5wCUvPJWgUYFiSM PnnK97jk2xcKQikfVrU4U fO6TczFKxyKazZsdxbPJn rTBfYo5diNVpTQ6qZDTta DAgK8CvIT4kJMKgydxqBO IgVGhlIHVzZSBvZiBvbmU jc7ZpcK8uMAVlARWiXB06 ltHdwnH6lZVaVPChsgFsj GVzdHMgaXMgcmVndWxhdG BeTUJcCECkNWMvDNa6yLY rv7FpF2bpsBXljdJyA1Ks wDXfCNFUFH3eWKqyi3Iph ZKbwIAdb9VbXUJaPIQcwQ 1aVTJxVR7oWSLiBEkwOXF nepXusl5bdqAbCMGgSFGq C5EnwbvboInhfdQvUTOns d7chgKfDZR2TNMcDHKtmA jhvRZeiXVwOMSgpxN0i0G vFXTvn8PvX7YwoTRvMOGm mCHiALU8f9DyiI6bPZjff DPnCJLvGL0gkNQgMOSeKH NsZWFyZWQgYnkgdGhlIFV VSKCdh9EvTN5kFQXzvKhh GXHjzO4fu2MgVDKrc14aU EZEQSkuIFRoZSBGREEgaG FzIGRldGVybWluZWQgdGh sbGLwoMOiJOMcVQGoQG7e GBHwlxDaiHYst4DujBUmz eLtr4VpxuAlBJZvRJJ3Xl BccGFyXHBhciBBbGwgaW1 kwV9qa8KuuR4cYCgtzzJl rHFaIv5gySIvDU8vCICcy mFmZmluIGVtYmVkZGVkIH Jur4E8VV5pHBKgtw7ycsz mjDLlmX8oiDSzbtMhCU2y OX8gR7I6wHPsBSLoptRzx 7omWEe3jHAtFZGnlTUxlD SyRcowQTO5GYQwYEN4eoR jovAzSKBehHbciAQ7dLLk NMSzOQDwAKTuSA23U7Obm 4WhG2hjPD98CGMmAVVpPZ FhwdZnj7tbBLDqg9ntMXO pqFJiC4BuRVRhpJQswgsq OcMbKQB4XDKqUVE7lJHgN ETzX6IhyAZefJRphU54SW 4zqNK9TT3tWBO1LRwilE4 kBtGPxF85tp9qgMT0h0Kv JM4qQ6FeUWKiq7Z4urZgN JXhCR9qrOAsDNKtUJJbfM lkYXRlZCBvbiBkZWNhbGN gIzenZET6qZXdpJBnPhHH ENN7bXNqCMBzy1XePBEgZ LUiocGqkdVmKEKpXEL0vM MhTABpeHMru59bX8l5HW9 onLiySOErmYOpYDTtm7Nf qEDskIx6dLIbAcViESkmK UBgGWbvoPv6xLA5CR9dRI DjE9QaR9kesRHaCQTlCYG teQSxfh4xgNRzxM== [facility] Work Phone: Gross Description a6mauCQeZDJjhCMPNZNz M QZcMH8ybQiouEr7jZsyGY GhieC1tIJuEGdan5qbPMU 7s8lykoBLWhwzDVTeLX1j VAosIUXsMD9mXyElEFOgW mYxXHBhcGVydzEyMjQwXH VfkVBdmJZ2JOJoXV9rxar mFDtaLAsfKVGeadP9EHQx kYSbT4YnVLKoCS7zcpwtT ZD8DUGVDqtzJa5epYRglV ANCntcZjFcZmNoYXJzZXQ gGQFvc6hbxmEIqfsqeGi7 KJr8KVQtSPIjtJCbu6H9X Ykyf9xgb3NwZ5Pzk6YqTY b4bX3SJczrD42jp8A4Nfa 1MIMeVXj3POxxTDJoQUCt Njz2CMq4Y6yqZHCnJAmyW OSoYOdtpHUdISl7HGlpr3 FluKFlJTn0XQbsNLTaX1Y sB7BmAZukZjHeXNxdSGEh MXYsOQdiSKLuT8YCCICzX sY2IPx5WTWoINz5LZsaLp OGAIJ3YDD5YwI8FZn7BTI qEM8pVErdlCKrFXonBwxv XLcaN974RGvlZWGkQ7NoN 3QgXFxzZyBcXGlkIDUxMD OgPHciXYAlY4TSWLMbAyS 6HBi1TVEbFQn7BSuhD9SV JPXwXNW6AQT7BxJ5TrK7S Ie1PPHYNi9sAWA4Sro1Ez j2LAM4IVHyROebxpzcHPm 0IDIgXFxzcyAzIFxcZmwg VIsiJ59juLWoWPIVUuejr GFpblxlcGljTmVzdERvYz RhIBznvLOpfHMbHD0WZHl 0cmNoXGNmMVxmczIwIEEg HMLUyUR2rkDjBZYleyq6x OxtZWZliZbfE7QwBEUiEA BhciANCjEwMDAgbUwgXHB sv9ElL4H1ZSRnHSvsk0zr ZMZbRNuyx6KzUZbEBSQTT H6YAT8ylNS7DDoIIMSSV1 vQgSLzEBPjO2afrFG2p3s xpWCtu4d7TFszOGB1yISy n1BjxAbhMhrwwGH0WQenT qwnsL9jlLVLWXQCDffAWe ahleJeZG9DUGZUTA8ZgHZ oCNKbS2pgaJS4b8oheQVz s1r8KLffVCY7kIyjjTTrb lxsdHJjaFxmczIwICBccH TliEEaqHuqQrwcnFL7SUe fMoqjmB8teKAIWFKHXupE KmbqxrTsTI9ADIGALbHXD Z12FUN1UVL8iXX0Um09GJ JsGEMfmUYdWNuhJ903xRF hwV94u9nlpVFcGPfpXoua mXJwwmV4JYfFSEFRVKkXZ aBwRJ7iKZwBS6HRCvW1KE X1DRN3nUV1Fj29XJVaSRN bjGGoRWnfH155JWKsNPas HCi3ddJnURMqOjJpZXYjn GfyFPGuC5FpunIjORhskr 77DDI0h0jqkDGfZFccUbo orLFhmfG7VPsCZLGYERcZ XnDdSL0gBVwUX6LPIAoYP ceiGHoaQfO7D5srwWodIj rsrsGlvOIdXnALeP5pdbQ bpYgtTyycbYJ6LQrvVlpp xP8neHHEMTBBDbmKKcbhd fRgCN0UQLKLYM0WmSReKR AvRQzqyHU9x6glfOTjk3b 5DEqiVRP6gMbsfGPdzecl qKVriFzxojFlVN3dXCQhm iANClxiXGNmMiBNYXRlcm zpxHZwHNUffAOrARR2RRL sQFJdVXJnSRSniK1QzvAf IGFuZCAxIENlbGwgQmxvY 9eegzhdkETeZH5YDFCmgm ANClxmMlxmczIyXHBhciA GOwgzVLRjONXrgAHJq1Ft DWLIJmc7WF2HAHZwWIIml ABUDGG6VU9sTXrrMMDsR9 WyH5QgwuD5j5xedGmni8Z kcQNcPO7xdGJvZV6YCWTk wqJwSBmddAbppO9kATo6 [facility] Work Phone: Pathologist Interpretation Location [facility], [address] [facility] [address]; CLIA: [id number]; Joint Commission: HCO [id number]; CAP: [id number] [email or web address] Phone: Pathology report final diagnosis Narrative j6mmzCEhIUKydEBxABNmT WiehhQxWRIuuNMmK4Gqnv tpGEtpHY7bON2ahQiebQC rvXNjUOBwBfIhw3frq498 mCSnx3bvGCKUHRzkYOBAW Ql1nOamY74ew3A5ZzrqK7 uvFMQ7KCcyjzDcgtl3NKT tvOR6GQk1DZHkqPCzpnJv JjJiEBXurFNqdEJ2IKVkL E6vvuwsDVajQNkyZKOelv L3WLPdmLHrP5IfAOWrSX5 ifbggQUD5DOwmAVKyDQD2 VkFrDXTfn1Olwst5LfWpt GFyZFxwbGFpblxmczIwXG NmMSBBICAtIFBsZXVyYWw gN2F9kFO7NBWHZNP7HN2n Um0etVSKuBHaRRhsJ2a4s 7nwP7f2JNFyQTIiKByrIH AzPz4oXQTPZHcSCF1GTDC YHJiOHXlUAY2NSFXSBIRl XHBhclxwYXJ9 [employer] Work Phone: [employer] Phone: No Panel InformationOrdered By: Ronal Maurice on 04-14-2025 P [place] 44 degrees [employer] Work Phone: VA Interval 134 ms [employer] Work Phone: QRS [place] -35 degrees [employer] Work Phone: QRSD Interval 117 ms [facility] [employer] Work Phone: QT Interval 390 ms [employer] Work Phone: QTC Interval 450 ms [facility] Phone: T Wave [place] 78 degrees [facility] Work Phone: [facility] Work Phone: Nursing Noteon 04-14-2025 Nursing Note Normal [facility] Progress Noteon 04-14-2025 Progress Note Normal [facility] Normal [facility] Progress Note Normal [facility] Progress Note Normal [facility] Progress Note Normal [facility] Progress [facility] Normal [facility] Progress Note Normal [facility] US GUIDED THORACENTESISon US GUIDED THORACENTESIS Normal S [facility] Vital signsOrdered By: Jake Maurice on 04-14-2025 Heart rate 80 /min bpm [facility] [employer] Phone: XR Chest Single viewon 04-14 [facility] EMERGENCY [facility]PART[facility] RADIOLOGY SYSTEM [facility] XR Chest Single viewOrdered By: Anthony Christian on 04-14-2025 [facility] Phone: [phone] [id number] Normal [facility] BLOOD GAS ARTERIALon 025 AMOUNT OF OXYGEN 2 lpm Normal [facility] Comment on above: Order Comment: Pleas e draw tomorrow AM after using BiPAP. Thank you! Performed By: #### L [id number] ####Ethyl Blender: UNA ARCE ([phone])[facility] ([facility])[address] [place] [address] Base excess Calc (Bld) [Moles/Vol] 11.7 mmol/L High -3.0-3.0 [facility] Comment on above: Order Comment: Pleas e draw tomorrow AM after using BiPAP. Thank you! Performed By: #### L [id number] ####Ethyl Blender: UNA ARCE ([id number])[facility] ([facility] [place] [address] CO2 [Moles/Vol] 39.9 mmol/L High 22.0-28.0 [facility] Comment on above: Order Comment: Pleas e draw tomorrow AM after using BiPAP. Thank you! Performed By: #### L [id number] ####Ethyl Blender: UNA RACE ([id number])[facility])[address] HCO3 (Bld) [Moles/Vol] 38.1 mmol/L High 21.0-27.0 [facility] Comment on above: Order Comment: Pleas e draw tomorrow AM after using BiPAP. Thank you! Performed By: #### L [id number] ####Ethyl Blender: UNA ARCE ([id number])[facility] ([facility])[address] [place] [address] Hemoglobin (Bld) [Mass/Vol] 11.3 g/dL Low Screen only [facility] Comment on above: Order Comment: Pleas e draw tomorrow AM after using BiPAP. Thank you! Performed By: #### L [id number] ####Ethyl Blender: UNA ARCE ([id number])[facility] ([facility])[address] [place] [address] OXYGEN SATURATION (%) IN ARTERIAL BLOOD 95.1 % Low 97.0-99.0 [facility] Comment on above: Order Comment: Pleas e draw tomorrow AM after using BiPAP. Thank you! Performed By: #### L [id number] ####Ethyl Blender: UNA ARCE ([id number])[facility] ([facility])[address] PCO2 ARTERIAL 59.2 mm Hg High 35.0-48.0 [facility] Comment on above: Order Comment: Pleas e draw tomorrow AM after using BiPAP. Thank you! Performed By: #### L [id number] ####Ethyl Blender: UNA ARCE ([id number])[facility] ([facility])[address] PH ARTERIAL 7.426 Normal 7.350-7.450 [facility] Comment on above: Order Comment: Pleas e draw tomorrow AM after using BiPAP. Thank you! Performed By: #### L [id number] ####Ethyl Blender: UNA ARCE ([id number])[facility] ([facility])[address] [place] [address] PO2 ARTERIAL 79.2 mm Hg Low 83.0-108.0 [facility] Comment on above: Order Comment: Pleas e draw tomorrow AM after using BiPAP. Thank you! Performed By: #### L [id number] ####Ethyl Blender: UNA ARCE ([id number])[facility] ([facility])[address] [place] [address] SOURCE OF OXYGEN Nasal Cannula (LPM) Normal [facility] Comment on above: Order Comment: Pleas e draw tomorrow AM after using BiPAP. Thank you! Performed By: #### L [id number] ####Ethyl Blender: UNA ARCE ([id number])[facility] ([facility])[address] [place] [address] Bacteria identified Aer cx N om (Unsp spec)on 04-13-2025 Gram Stain Result Rare Polymorphonuclear leukocytes per low power field [facility] Gram Stain Result No organisms seen [facility] Bacteria identified Aer cx N om (Unsp spec)Ordered By: Bianca Daigle on 04-13-2025 Gram Stain Result Moderate Polymorphonuclear leukocytes per low power field [facility] Gram Stain Result No organisms seen [facility] CBC W Auto Differential pane l (Bld)on 04-13-2025 Erythrocyte distribution width (RBC) [Ratio] 25 % High 11.5 - 15.0 % [facility] Hematocrit (Bld) [Volume fraction] 28.2 % Low 40.0 - 52.0 % [facility] Hemoglobin (Bld) [Mass/Vol] 7.8 g/dL Low 13.0 - 18.0 g/dL [facility] Interpretation and review of laboratory results Abnormal [facility] MCH (RBC) [Entitic mass] 23.2 pg Low 26. 0 - 34.0 pg [facility] MCHC (RBC) [Mass/Vol] 27.7 % Low 30.5 - 36.0 % [facility] MCV (RBC) [Entitic vol] 83.9 fL 77.0 - 99.0 fL [facility] Platelet mean volume (Bld) [Entitic vol] 9.1 fL 9.0 - 12.7 fL [facility] Platelets (Bld) [#/Vol] 276 10*3/uL 140 - 440 10*3/uL [facility] RBC (Bld) [#/Vol] 3.36 10*6/uL Low 4.40 - 5.9 0 10*6/uL [facility] WBC (Bld) [#/Vol] 12.7 10*3/uL High 3.6 - 10.7 10*3/uL [facility] CBC WITH AUTO DIFFERENTIALon 04-13-2025 Erythrocyte distribution width (RBC) [Ratio] 25.0 % High 11.5-15.[address] [facility] Comment on above: Performed By: #### L [id number], [id number] ####Ethyl Blender: UNA ARCE ([id number])[facility] ([facility])[address] [place] [address] Hematocrit (Bld) [Volume fraction] 28.2 % Low 40.0-52.[address] [facility] Comment on above: Performed By: #### L [id number], [id number] ####Ethyl Blender: UNA ARCE ([id number])[facility] ([facility])[address] Hemoglobin (Bld) [Mass/Vol] 7.8 g/dL Low 13.0-18.[address] [facility] Comment on above: Performed By: #### L [id number], [id number] ####Ethyl Blender: UNA ARCE ([id number])[facility] ([facility])[address] MCH (RBC) [Entitic mass] 23.2 pg Low 26.0-34.[address] [facility] Comment on above: Performed By: #### L [id number], [id number] ####Ethyl Blender: UNA ARCE ([phone])LYNETTE BASHIRN ([facility])[address] MCHC 27.7 % Low 30.5-36.0 [facility] Comment on above: Performed By: #### L [id number], [id number] ####Ethyl Blender: UNA ARCE ([id number])[facility]NETTE BASHIRN ([facility])[address] MCV (RBC) [Entitic vol] 83.9 fL Normal 77.0-99.0 S [facility] Comment on above: Performed By: #### L [id number], [id number] ####Ethyl Blender: UNA ARCE ([id number])[facility] ([facility])[address] [place] [address] Platelet mean volume (Bld) [Entitic vol] 9.1 fL Normal 9.0-12.7 [facility] Comment on above: Performed By: #### L [id number], [id number] ####Ethyl Blender: UNA ARCE ([phone])[facility] ([facility])[address] Platelets (Bld) [#/Vol] 276 10*3/uL Normal 140-440 [facility] Comment on above: Performed By: #### L [id number], [id number] ####Ethyl Blender: UNA ARCE ([id number])[facility] [place] ([facility])[address] RBC (Bld) [#/Vol] 3.36 10*6/uL Low 4.40-5.90 [facility] Comment on above: Performed By: #### L [id number], [id number] ####Ethyl Blender: NUA ARCE ([id number])[facility] ([facility])[address] [place] [address] [place] WBC (Bld) [#/Vol] 12.7 10*3/uL High 3.6-10.7 [facility] Comment on above: Performed By: #### L [id number], [id number] ####Ethyl Blender: UNA ARCE ([id number])[facility] ([facility])[address] COMPREHENSIVE METABOLIC PANE Anant 04-13-2025 Albumin [Mass/Vol] 2.2 g/dL Low 3.4-4.8 [facility] Comment on above: Performed By: #### L AB17, [id number], [id number] ####Ethyl Blender: UNA ARCE ([id number])[facility] [place] ([facility])[address] ALP [Catalytic activity/Vol] 52 U/L Normal 40-150 [facility] Comment on above: Performed By: #### L AB17, [id number], [id number] ####Ethyl Blender: UNA ARCE ([id number])[facility] [place] ([facility])[address] ALT [Catalytic activity/Vol] U/L Normal <40 [facility] Comment on above: Performed By: #### L AB17, OFO754, [id number] ####Ethyl Blender: UNA ARCE ([id number])[facility] [place] ([facility])[address] Anion gap [Moles/Vol] 10 mmol/L Normal 3-13 [facility] Comment on above: Performed By: #### L AB17, CAU799, [id number] ####Ethyl Blender: UNA ARCE ([id number])[facility] [place] ([facility])[address] AST [Catalytic activity/Vol] 25 U/L Normal <34 [facility] Comment on above: Performed By: #### L AB17, [id number], XPE298 ####Ethyl Blender: UNA ARCE ([id number])[facility] [place] ([facility])[address] Bilirubin [Mass/Vol] 0.6 mg/dL Normal <1.2 [facility] Comment on above: Performed By: #### L AB17, VFQ064, RJF177 ####Ethyl Blender: UNA ARCE ([id number])[facility] [place] ([facility])[address] Calcium [Mass/Vol] 8.1 mg/dL Low 8.8-10.0 [facility] Comment on above: Performed By: #### L AB17, MUO003, HSG600 ####Ethyl Blender: UNA ARCE ([id number])[facility] [place] ([facility])[address] Chloride [Moles/Vol] 93 mmol/L Low 98-107 [facility] Comment on above: Performed By: #### L AB17, AVM355, WLC785 ####Ethyl Blender: UNA ARCE ([id number])[facility] [place] ([facility])[address] CO2 [Moles/Vol] 36 mmol/L High 23-31 [facility] Comment on above: Performed By: #### L AB17, EZF767, BBT761 ####Ethyl Blender: UNA ARCE ([id number])[facility] [place] ([facility])[address] Creatinine [Mass/Vol] 1.46 mg/dL High 0.72-1.25 [facility] Comment on above: Performed By: #### L AB17, NLC753, XVO267 ####Ethyl Blender: UNA ARCE ([id number])[facility] [place] ([facility])[address] GLOMERULAR FILTRATION RATE ML/MIN/1.73 SQ M.PREDICTED 45.7 mL/min/1.73m*2 Low >60.0 [facility] Comment on above: Result Comment: Calc ulation based on the Chronic Kidney Disease Epidemiology Collaboration (CKD-EPI) equation refit without adjustment for race Performed By: #### L AB17, [id number], KBG310 ####Ethyl Blender: UNA ARCE ([id number])[facility] [place] ([facility])[address] Glucose [Mass/Vol] 94 mg/dL Normal 82-115 [facility] Comment on above: Performed By: #### L AB17, EUV923, MZV736 ####Ethyl Blender: UNA ARCE ([id number])[facility] ([facility])[address] Potassium [Moles/Vol] 3.4 mmol/L Low 3.5-5.1 [facility] Comment on above: Result Comment: [facility] potassium values may be up to 0.5 mmol/L lower than serum values. Performed By: #### L AB17, FRR603, XVT565 ####Ethyl Blender: UNA ARCE ([id number])[facility] ([facility])[address] Protein [Mass/Vol] 5.8 g/dL Low 6.4-8.3 [facility] Comment on above: Performed By: #### L AB17, HES537, NJV004 ####Ethyl Blender: UNA ARCE ([phone])[facility] ([facility])[address] Sodium [Moles/Vol] 139 mmol/L Normal 136-145 [facility] Comment on above: Performed By: #### L AB17, PFU025, VIE688 ####Ethyl Blender: UNA ARCE ([id number])[facility] ([facility])[address] [place] [address] [place] Urea nitrogen [Mass/Vol] 37 mg/dL High 9-23 [facility] Comment on above: Performed By: #### L AB17, [id number], [id number] ####Ethyl Blender: UNA ARCE ([id number])[facility] ([facility])[address] Comprehensive metabolic 1998 panelon 04-13-2025 Albumin [Mass/Vol] 2.2 g/dL Low 3.4 - 4.8 g/dL [facility] ALP [Catalytic activity/Vol] 52 U/L 40 - 150 U/L [facility] ALT [Catalytic activity/Vol] U/L NINF - 40 U/L [facility] Anion gap [Moles/Vol] 10 mmol/L 3 - 13 mmol/L [facility] AST [Catalytic activity/Vol] 25 U/L NINF - 34 U/L [facility] Bilirubin [Mass/Vol] 0.6 mg/dL NINF - 1.2 mg/dL [facility] Calcium [Mass/Vol] 8.1 mg/dL Low 8.8 - 10. 0 mg/dL [facility] Chloride [Moles/Vol] 93 mmol/L Low 98 - 10 7 mmol/L [facility] CO2 [Moles/Vol] 36 mmol/L High 23 - 31 mmol/L [facility] Creatinine [Mass/Vol] 1.46 mg/dL High 0.72 - 1.25 mg/dL [facility] GFR/1.73 sq M.predicted (S/P/Bld) [Vol rate/Area] 45.7 mL/min Low - PINF [facility] Glucose [Mass/Vol] 94 mg/dL 82 - 115 mg/dL [facility] Interpretation and review of laboratory results Abnormal [facility] Potassium [Moles/Vol] 3.4 mmol/L Low 3.5 - 5.1 mmol/L [facility] Protein [Mass/Vol] 5.8 g/dL Low 6.4 - 8.3 g/dL [facility] Sodium [Moles/Vol] 139 mmol/L 136 - 145 mmol/L [facility] Urea nitrogen [Mass/Vol] 37 mg/dL High 9 - 23 mg/d L [facility] Laboratory - Chemistry and C hemistry - challengeon 04-13-2025 Base excess Calc (Bld) [Moles/Vol] 11.7 mmol/L High -3.0 - 3.0 mmol/L [facility] CO2 (Bld) [Partial pressure] 59.2 mm[Hg] High [facility] CO2 [Moles/Vol] 39.9 mmol/L High 22.0 - 28.0 mmol/L [facility] HCO3 (Bld) [Moles/Vol] 38.1 mmol/L High 21.0 - 27.0 mmol/L [facility] Oxygen (Bld) [Partial pressure] 79.2 mm[Hg] Low [facility] pH (Bld) 7.426 [pH] 7.350 - 7.450 [facility] Magnesium [Mass/Vol] 1.9 mg/dL 1.6 - 2 .6 mg/dL [facility] Laboratory - Hematology and Cell countson 04-13-2025 Hemoglobin (Bld) [Mass/Vol] 11.3 g/dL Low 13.5 - 17.5 g/dl [facility] Anisocytosis Ql (Bld) Moderate Abnormal (none) [facility] Eosinophils (Bld) [#/Vol] 0.3 10*3/uL 0.0 - 0.5 10*3/uL [facility] Eosinophils/100 WBC (Bld) 2 % 0 - 6 % [facility] Hypochromia Ql (Bld) Slight Abnormal (none) [facility] Lymphocytes (Bld) [#/Vol] 1.9 10*3/uL 1.0 - 4.3 10*3/uL [facility] Lymphocytes/100 WBC (Bld) 15 % 15 - 45 % [facility] Monocytes (Bld) [#/Vol] 0.9 10*3/uL 0.0 - 0.9 10*3/uL [facility] Monocytes/100 WBC (Bld) 7 % 5 - 13 % [facility] Myelocytes (Bld) [#/Vol] 0.1 10*3/uL High SELENE F - 0.0 10*3/uL [facility] Myelocytes/100 WBC (Bld) 1 % High NINF - 0 % [facility] Neutrophils (Bld) [#/Vol] 9.7 10*3/uL High 1.8 - 7.5 10*3/uL [facility] Poikilocytosis LM Ql (Bld) Slight Abnormal (none) [facility] RBC morphology finding Nom (Bld) abnormal [facility] Segmented neutrophils/100 WBC (Bld) 76 % 38 - 82 % [facility] Stomatocytes LM Ql (Bld) Slight Abnormal (none) [facility] Laboratory - Microbiology an d Antimicrobial susceptibilityon 04-13-2025 Bacteria identified Aer cx Nom (Unsp spec) No growth at 4 days [facility] - Microbiology an d Antimicrobial susceptibilityOrdered By: Bianca Brody Daigle on 04-13-2025 Bacteria identified Aer cx Nom (Unsp spec) No growth at 4 days [facility] MAGNESIUMon 04-13-2025 Magnesium [Mass/Vol] 1.9 mg/dL Normal 1.6-2.6 [facility] Comment on above: Result Comment: ORDE R COMMENTS:Higher values can be expected in females during menses. Performed By: #### L [id number], [id number], [id number] ####Ethyl Blender: UNA ARCE ([phone])[facility] ([facility])[address] MANUAL DIFFERENTIAL (CELLAVI BANDAR)on 04-13-2025 ANISOCYTOSIS PRESENCE IN BLOOD BY LIGHT MICROSCOPY Moderate Abnormal (none) [facility] Comment on above: Performed By: #### L [id number], [id number] ####Ethyl Blender: UNA ARCE ([phone])[facility] ([facility])[address] BAND NEUTROPHILS TOTAL PER COUNTED LEUKOCYTES BY MANUAL COUNT [facility] Comment on above: Performed By: #### L [id number], [id number] ####Ethyl Blender: UNA ARCE ([phone])[facility] ([facility])[address] BASOPHILS TOTAL PER COUNTED LEUKOCYTES BY MANUAL COUNT [facility] Comment on above: Performed By: #### L [id number], [id number] ####Ethyl Blender: UNA ARCE ([phone])[facility] ([facility])[address] BLASTS TOTAL PER COUNTED LEUKOCYTES BY MANUAL COUNT [facility] Comment on above: Performed By: #### L [id number], [id number] ####Ethyl Blender: UNA ARCE ([phone])[facility] ([facility])[address] [place] [address] [place] EOSINOPHILS (10*3/UL) IN BLOOD-CELLAVISION 0.3 10*3/uL Normal 0.0-0.5 [facility] Comment on above: Performed By: #### L [id number], [id number] ####Ethyl Blender: UNA ARCE ([phone])[facility] ([facility])[address] EOSINOPHILS TOTAL PER COUNTED LEUKOCYTES BY MANUAL COUNT 2 High 0-1 [facility] Comment on above: Performed By: #### L [id number], [id number] ####Ethyl Blender: UNA ARCE ([phone])[facility] [place] ([facility])[address] [place] [address] [place] EOSINOPHILS/100 LEUKOCYTES IN BLOOD-CELLAVISION 2 % Normal 0-6 [facility] Comment on above: Performed By: #### L [id number], [id number] ####Ethyl Blender: UNA ARCE ([phone])[facility] [place] ([facility])[address] HYPOCHROMIA (PRESENCE) IN BLOOD BY LIGHT MICROSCOPY Slight Abnormal (none) [facility] Comment on above: Performed By: #### L [id number], [id number] ####Ethyl Blender: UNA ARCE ([phone])[facility] [place] ([facility])[address] LYMPHOCYTES (10*3/UL) IN BLOOD-CELLAVISION 1.9 10*3/uL Normal 1.0-4.3 [facility] Comment on above: Performed By: #### L [id number], [id number] ####Ethyl Blender: UNA ARCE ([phone])[facility] [place] ([facility])[address] [place] [address] [place] LYMPHOCYTES TOTAL PER COUNTED LEUKOCYTES BY MANUAL COUNT 15 Normal [facility] Comment on above: Performed By: #### L [id number], [id number] ####Ethyl Blender: UNA ARCE ([phone])[facility] [place] ([facility])[address] [place] [address] [place] LYMPHOCYTES/100 LEUKOCYTES IN BLOOD-CELLAVISION 15 % Normal 15-[address] [facility] Comment on above: Performed By: #### L [id number], [id number] ####Ethyl Blender: UNA ARCE ([phone])[facility] [place] ([facility])[address] [place] [address] [place] METAMYELOCYTES TOTAL PER COUNTED LEUKOCYTES BY MANUAL COUNT Normal [facility] Comment on above: Performed By: #### L [id number], [id number] ####Ethyl Blender: UNA ARCE ([phone])[facility] ([facility])[address] [place] [address] [place] MONOCYTES (10*3/UL) IN BLOOD-CELLAVISION 0.9 10*3/uL Normal 0.0-0.[address] [facility] Comment on above: Performed By: #### L [id number], [id number] ####Ethyl Blender: UNA ARCE ([phone])[facility] [place] ([facility])[address] [place] [address] [place] MONOCYTES TOTAL PER COUNTED LEUKOCYTES BY MANUAL COUNT [address] [facility] Comment on above: Performed By: #### L [id number], [id number] ####Ethyl Blender: UNA ARCE ([phone])[facility] [place] ([facility])[address] [place] [address] [place] MONOCYTES/100 LEUKOCYTES IN BLOOD-LUCIANA 7 % Normal 5-[address] [facility] Comment on above: Performed By: #### L [id number], [id number] ####Ethyl Blender: UNA ARCE ([phone])[facility] [place] ([facility])[address] [place] [address] [place] MYELOCYTES (10*3/UL) IN BLOOD-CELLAVISION 0.1 10*3/uL High <=0.[address] [facility] Comment on above: Performed By: #### L [id number], [id number] ####Ethyl Blender: UNA ARCE ([phone])[facility] ([facility])[address] [place] [address] [place] MYELOCYTES COUNTED BY MANUAL COUNT 1 Normal [facility] Comment on above: Performed By: #### L [id number], [id number] ####Ethyl Blender: UNA ARCE ([phone])[facility] [place] ([facility])[address] [place] [address] [place] MYELOCYTES/100 LEUKOCYTES IN BLOOD-CELLAVISION 1 % High <=[address] [facility] Comment on above: Performed By: #### L [id number], [id number] ####Ethyl Blender: UNA ARCE ([phone])[facility] [place] ([facility])[address] [place] [address] [place] NEUTROPHILS TOTAL PER COUNTED LEUKOCYTES BY MANUAL COUNT [address] [facility] Comment on above: Performed By: #### L [id number], [id number] ####Ethyl Blender: UNA ARCE ([phone])[facility] [place] ([facility])[address] [place] [address] [place] POIKILOCYTOSIS (PRESENCE) IN BLOOD BY LIGHT MICROSCOPY Slight Abnormal (none) [facility] Comment on above: Performed By: #### L [id number], [id number] ####Ethyl Blender: UNA ARCE ([phone])[facility] [place] ([facility])[address] [place] [address] [place] PROMYELOCYTES TOTAL PER COUNTED LEUKOCYTES BY MANUAL COUNT Normal [facility] Comment on above: Performed By: #### L [id number], [id number] ####Ethyl Blender: UNA ARCE ([phone])[facility] [place] ([facility])[address] [place] [address] [place] RBC MORPHOLOGY IN BLOOD abnormal Normal [facility] Comment on above: Performed By: #### L [id number], [id number] ####Ethyl Blender: UNA ARCE ([phone])[facility] [place] ([facility])[address] [place] [address] [place] SEGMENTED NEUTROPHILS (10*3/UL) IN BLOOD-CELLAVISION 9.7 10*3/uL High 1.8-7.5 [facility] Comment on above: Performed By: #### L [id number], [id number] ####Ethyl Blender: UNA ARCE ([phone])[facility] ([facility])[address] [place] [address] [place] SEGMENTED NEUTROPHILS/100 LEUKOCYTES-CE 76 % Normal 38-82 [facility] Comment on above: Performed By: #### L [id number], [id number] ####Ethyl Blender: UNA ARCE ([phone])[facility] ([facility])[address] [place] [address] [place] STOMATOCYTES IN BLOOD BY LIGHT MICROSCOPY Slight Abnormal (none) [facility] Comment on above: Performed By: #### L [id number], [id number] ####Ethyl Blender: UNA ARCE ([phone])[facility] ([facility])[address] UNCLASSIFIED CELLS TOTAL PER COUNTED LEUKOCYTES BY MANUAL COUNT Normal [facility] Comment on above: Performed By: #### L [id number], [id number] ####Ethyl Blender: UNA ARCE ([phone])[facility] ([facility])[address] VARIANT LYMPHOCYTES TOTAL PER COUNTED LEUKOCYTES BY MANUAL COUNT Normal [facility] Comment on above: Performed By: #### L [id number], [id number] ####Ethyl Blender: UNA ARCE ([phone])[facility] ([facility])[address] [place] [address] [place] Magnesium [Mass/Vol]on 04-13 [facility] No Panel Informationon 04-13 Amount Of Oxygen 2 lpm [facility] Interpretation and review of laboratory results Abnormal [facility] Source Of Oxygen Nasal Cannula (LPM) [facility] Interpretation and review of laboratory results Normal [facility] Eosinophils Manual 2 High 0 - 1 [facility] Interpretation and review of laboratory results Abnormal [facility] Lymphocytes Manual 15 [facility] Monocytes Manual 7 [facility] Myelocytes Manual 1 [facility]alth Neutrophils Manual 77 [facility] PHOSPHORUSon 04-13-2025 Phosphate [Mass/Vol] 2.9 mg/dL Normal 2.3-4.7 [facility] Comment on above: Performed By: #### L AB17, [id number], [id number] ####Ethyl Blender: UNA ARCE ([phone])[facility] (SB[facility])[address] [place] [address] Phosphate [Moles/Vol]on Phosphate [Mass/Vol] 2.9 mg/dL 2.3 - 4 .7 mg/dL [facility] Progress Noteon 04-13-2025 Progress Note Normal [facility] Normal [facility] Progress Note Normal [facility] Progress [facility] Normal [facility] Progress Note Normal [facility] XR Chest Single viewon 04-13 Radiology Study observation (narrative) [facility] alth [id number] 04-12-[id number] [facility] [id number] Normal [facility] CBC W Auto Differential pane l (Bld)on 04-12-2025 Erythrocyte distribution width (RBC) [Ratio] 24.3 % High 11.5 - 15.0 % [facility] Hematocrit (Bld) [Volume fraction] 26.8 % Low 40.0 - 52.0 % [facility] Hemoglobin (Bld) [Mass/Vol] 7.4 g/dL Low 13.0 - 18.0 g/dL [facility] MCH (RBC) [Entitic mass] 23.1 pg Low 26. 0 - 34.0 pg [facility] MCHC (RBC) [Mass/Vol] 27.6 % Low 30.5 - 36.0 % [facility] MCV (RBC) [Entitic vol] 83.8 fL 77.0 - 99.0 fL [facility] Platelet mean volume (Bld) [Entitic vol] 9.3 fL 9.0 - 12.7 fL [facility] Platelets (Bld) [#/Vol] 272 10*3/uL 140 - 440 10*3/uL [facility] RBC (Bld) [#/Vol] 3.2 10*6/uL Low 4.40 - 5.9 0 10*6/uL [facility] WBC (Bld) [#/Vol] 12 10*3/uL High 3.6 - 10.7 10*3/uL [facility] CBC WITH AUTO DIFFERENTIALon 04-12-2025 Erythrocyte distribution width (RBC) [Ratio] 24.3 % High 11.5-15.0 [facility] Comment on above: Performed By: #### L [id number], [id number] ####Ethyl Blender: UNA ARCE ([phone])[facility] (SBAB)[address] [place] [address] Hematocrit (Bld) [Volume fraction] 26.8 % Low 40.0-52.0 [facility] Comment on above: Performed By: #### L [id number], [id number] ####Ethyl Blender: UNA ARCE ([phone])[facility] (SBAB)[address] [place] [address] Hemoglobin (Bld) [Mass/Vol] 7.4 g/dL Low 13.0-18.0 [facility] Comment on above: Performed By: #### L [id number], [id number] ####Ethyl Blender: UNA ARCE ([id number])[facility] (SBAB)[address] [place] [address] MCH (RBC) [Entitic mass] 23.1 pg Low 26.0-34.0 [facility] Comment on above: Performed By: #### L [id number], [id number] ####Ethyl Blender: UNA ARCE ([phone])[facility] (SBAB)[address] MCHC 27.6 % Low 30.5-36.[address] [facility] Comment on above: Performed By: #### L [id number], [id number] ####Ethyl Blender: UNA ARCE ([phone])[facility] ([facility]AB)[address] MCV (RBC) [Entitic vol] 83.8 fL Normal 77.0-99.0 S [facility] Comment on above: Performed By: #### L [id number], [id number] ####Ethyl Blender: UNA ARCE ([id number])[facility] (SB[facility])[address] Platelet mean volume (Bld) [Entitic vol] 9.3 fL Normal 9.0-12.7 [facility] Comment on above: Performed By: #### L [id number], [id number] ####Ethyl Blender: UNA ARCE ([phone])[facility] (SB[facility])[address] Platelets (Bld) [#/Vol] 272 10*3/uL Normal 140-440 [facility] Comment on above: Performed By: #### L [id number], [id number] ####Ethyl Blender: UNA ARCE ([phone])[facility] (SB[facility])[address] RBC (Bld) [#/Vol] 3.20 10*6/uL Low 4.40-5.90 [facility] Comment on above: Performed By: #### L [id number], [id number] ####Ethyl Blender: UNA ARCE ([id number])[facility] (SB[facility])[address] WBC (Bld) [#/Vol] 12.0 10*3/uL High 3.6-10.7 [facility] Comment on above: Performed By: #### L [id number], [id number] ####Ethyl Blender: UNA ARCE ([phone])[facility] (SB[facility]AB)[address] COMPREHENSIVE METABOLIC PANE Anant 04-12-2025 Albumin [Mass/Vol] 2.2 g/dL Low 3.4-4.8 [facility] Comment on above: Performed By: #### L AB17, [id number], [id number] ####Ethyl Blender: UNA ARCE ([phone])[facility] ([facility])[address] ALP [Catalytic activity/Vol] 49 U/L Normal 40-150 [facility] Comment on above: Performed By: #### L AB17, [id number], [id number] ####Ethyl Blender: UNA ARCE ([phone])[facility] ([facility])[address] ALT [Catalytic activity/Vol] U/L Normal <40 [facility] Comment on above: Performed By: #### L AB17, GRY242, [id number] ####Ethyl Blender: UNA ARCE ([phone])[facility] (SB[facility]AB)[address] Anion gap [Moles/Vol] 7 mmol/L Normal 3-13 [facility] Comment on above: Performed By: #### L AB17, RBR410, RES494 ####Ethyl Blender: UNA ARCE ([phone])[facility] ([facility])[address] AST [Catalytic activity/Vol] 19 U/L Normal <34 [facility] Comment on above: Performed By: #### L AB17, EUJ742, USZ275 ####Ethyl Blender: UNA ARCE ([phone])[facility] (SB[facility])[address] [place] [address] [place] Bilirubin [Mass/Vol] 0.6 mg/dL Normal <1.2 [facility] Comment on above: Performed By: #### L AB17, [id number], [id number] ####Ethyl Blender: UNA ARCE ([phone])[facility] ([facility])[address] Calcium [Mass/Vol] 7.9 mg/dL Low 8.8-10.0 [facility] Comment on above: Performed By: #### L AB17, CYZ664, VWD079 ####Ethyl Blender: UNA ARCE ([phone])[facility] [place] ([facility]AB)[address] Chloride [Moles/Vol] 95 mmol/L Low 98-107 [facility] Comment on above: Performed By: #### L AB17, [id number], [id number] ####Ethyl Blender: UNA ARCE ([phone])[facility] ([facility])[address] CO2 [Moles/Vol] 37 mmol/L High 23-31 [facility] Comment on above: Performed By: #### L AB17, [id number], JWP708 ####Ethyl Blender: UNA ARCE ([phone])[facility] Creatinine [Mass/Vol] 1.53 mg/dL High 0.72-1.25 [facility] Comment on above: Performed By: #### L AB17, OFW984, [id number] ####Ethyl Blender: UNA ARCE ([phone])[facility] ([facility])[address] [place] [address] [place] GLOMERULAR FILTRATION RATE ML/MIN/1.73 SQ M.PREDICTED 43.2 mL/min/1.73m*2 Low >60.0 [facility] Comment on above: Result Comment: Calc ulation based on the Chronic Kidney Disease Epidemiology Collaboration (CKD-EPI) equation refit without adjustment for race Performed By: #### L AB17, [id number], [id number] ####Ethyl Blender: UNA ARCE ([phone])[facility] [place] [address] [place] Glucose [Mass/Vol] 103 mg/dL Normal 82-115 [facility] Comment on above: Performed By: #### L AB17, [id number], [id number] ####Ethyl Blender: UNA ARCE ([phone])[facility] ([facility])[address] Potassium [Moles/Vol] 3.7 mmol/L Normal 3.5-5.1 [facility] Comment on above: Result Comment: [facility] potassium values may be up to 0.5 mmol/L lower than serum values. Performed By: #### L AB17, KHS989, SSH613 ####Ethyl Blender: UNA ARCE ([phone])[facility] ([facility])[address] Protein [Mass/Vol] 5.6 g/dL Low 6.4-8.3 [facility] Comment on above: Performed By: #### L AB17, [id number], [id number] ####Ethyl Blender: UNA ARCE ([phone])[facility] ([facility])[address] [place] [address] Sodium [Moles/Vol] 139 mmol/L Normal 136-145 [facility] Comment on above: Performed By: #### L AB17, ISV438, XRP038 ####Ethyl Blender: UNA ARCE ([phone])[facility] ([facility])[address] [place] [address] Urea nitrogen [Mass/Vol] 40 mg/dL High 9-23 [facility] Comment on above: Performed By: #### L AB17, [id number], AQT615 ####Ethyl Blender: UNA ARCE ([phone])[facility] ([facility] [place] [address] Comprehensive metabolic 1998 panelon 04-12-2025 Albumin [Mass/Vol] 2.2 g/dL Low 3.4 - 4.8 g/dL [facility] ALP [Catalytic activity/Vol] 49 U/L 40 - 150 U/L [facility] ALT [Catalytic activity/Vol] U/L NINF - 40 U/L [facility] Anion gap [Moles/Vol] 7 mmol/L 3 - 13 mmol/L [facility] AST [Catalytic activity/Vol] 19 U/L NINF - 34 U/L [facility] Bilirubin [Mass/Vol] 0.6 mg/dL NINF - 1.2 mg/dL [facility] Calcium [Mass/Vol] 7.9 mg/dL Low 8.8 - 10. 0 mg/dL [facility] Chloride [Moles/Vol] 95 mmol/L Low 98 - 10 7 mmol/L [facility] CO2 [Moles/Vol] 37 mmol/L High 23 - 31 mmol/L [facility] Creatinine [Mass/Vol] 1.53 mg/dL High 0.72 - 1.25 mg/dL [facility] GFR/1.73 sq M.predicted (S/P/Bld) [Vol rate/Area] 43.2 mL/min Low - PINF [facility] Glucose [Mass/Vol] 103 mg/dL 82 - 115 mg/dL [facility] Interpretation and review of laboratory results Abnormal [facility] Potassium [Moles/Vol] 3.7 mmol/L 3.5 - 5.1 mmol/L [facility] Protein [Mass/Vol] 5.6 g/dL Low 6.4 - 8.3 g/dL [facility] Sodium [Moles/Vol] 139 mmol/L 136 - 145 mmol/L [facility] Urea nitrogen [Mass/Vol] 40 mg/dL High 9 - 23 mg/d L [facility] Consulton 04-12-2025 Consult Normal [facility] Laboratory - Chemistry and C hemistry - challengeon 04-12-2025 Magnesium [Mass/Vol] 2.2 mg/dL 1.6 - 2 .6 mg/dL [facility] Laboratory - Hematology and Cell countson 04-12-2025 Anisocytosis Ql (Bld) Slight Abnormal (none) [facility] Band form neutrophils (Bld) [#/Vol] 0.1 10*3/uL High NINF - 0.0 10*3/uL [facility] Band form neutrophils/100 WBC (Bld) 1 % High NINF - 0 % [facility] Eosinophils (Bld) [#/Vol] 0.8 10*3/uL High 0.0 - 0.5 10*3/uL [facility] Eosinophils/100 WBC (Bld) 7 % High 0 - 6 % [facility] Lymphocytes (Bld) [#/Vol] 0.7 10*3/uL Low 1.0 - 4.3 10*3/uL [facility] Lymphocytes/100 WBC (Bld) 6 % Low 15 - 45 % [facility] Monocytes (Bld) [#/Vol] 0.5 10*3/uL 0.0 - 0.9 10*3/uL [facility] Monocytes/100 WBC (Bld) 4 % Low 5 - 13 % [facility] Neutrophils (Bld) [#/Vol] 9.8 10*3/uL High 1.8 - 7.5 10*3/uL [facility] RBC morphology finding Nom (Bld) abnormal [facility] Segmented neutrophils/100 WBC (Bld) 81 % 38 - 82 % [facility] MAGNESIUMon 04-12-2025 Magnesium [Mass/Vol] 2.2 mg/dL Normal 1.6-2.6 [facility] Comment on above: Result Comment: YARELI [place] COMMENTS:Higher values can be expected in females during menses. Performed By: #### L AB17, [id number], [id number] ####Ethyl Blender: UNA ARCE ([phone])[facility] ([facility])[address] [place] [address] MANUAL DIFFERENTIAL (CELLAVI BANDAR)on 04-12-2025 ANISOCYTOSIS PRESENCE IN BLOOD BY LIGHT MICROSCOPY Slight Abnormal (none) [facility] Comment on above: Performed By: #### L [id number], [id number] ####Ethyl Blender: UNA ARCE ([id number])[facility] ([facility])[address] BAND NEUTROPHILS TOTAL PER COUNTED LEUKOCYTES BY MANUAL COUNT 1 Normal [facility] Comment on above: Performed By: #### L [id number], [id number] ####Ethyl Blender: UNA ARCE ([id number])[facility] ([facility])[address] [place] [address] [place] BANDS (10*3/UL) IN BLOOD-CELLAVISION 0.1 10*3/uL High <=0.0 [facility] Comment on above: Performed By: #### L [id number], [id number] ####Ethyl Blender: UNA ARCE ([id number])[facility] ([facility])[address] [place] [address] [place] BASOPHILS TOTAL PER COUNTED LEUKOCYTES BY MANUAL COUNT Normal [facility] Comment on above: Performed By: #### L [id number], [id number] ####Ethyl Blender: UNA BERMUDEZPEDRO ([id number])[facility] ([facility])[address] [place] [address] [place] BLASTS TOTAL PER COUNTED LEUKOCYTES BY MANUAL COUNT Normal [facility] Comment on above: Performed By: #### L [id number], [id number] ####Ethyl Blender: UNA YAZMIN ([phone])[facility] ([facility])[address] [place] [address] [place] EOSINOPHILS (10*3/UL) IN BLOOD-CELLAVISION 0.8 10*3/uL High 0.0-0.[address] [facility] Comment on above: Performed By: #### L [id number], [id number] ####Ethyl Blender: UNA BERMUDEZPEDRO ([phone])[facility] ([facility])[address] [place] [address] [place] EOSINOPHILS TOTAL PER COUNTED LEUKOCYTES BY MANUAL COUNT 7 High 0-[address] [facility] Comment on above: Performed By: #### L [id number], [id number] ####Ethyl Blender: UNA BERMUDEZPEDRO ([phone])[facility] ([facility])[address] [place] [address] [place] EOSINOPHILS/100 LEUKOCYTES IN BLOOD-CELLAVISION 7 % High 0-[address] [facility] Comment on above: Performed By: #### L [id number], [id number] ####Ethyl Blender: UNA STAUFFERMELANIE ([phone])[facility] ([facility])[address] [place] [address] [place] LYMPHOCYTES (10*3/UL) IN BLOOD-CELLAVISION 0.7 10*3/uL Low 1.0-4.[address] [facility] Comment on above: Performed By: #### L [id number], [id number] ####Ethyl Blender: UNAANJEL ARCE ([phone])[facility] ([facility])[address] [place] [address] [place] LYMPHOCYTES TOTAL PER COUNTED LEUKOCYTES BY MANUAL COUNT 6 Normal [facility] Comment on above: Performed By: #### L [id number], [id number] ####Ethyl Blender: UNAANJEL MOHRCER ([phone])[facility] ([facility])[address] [place] [address] [place] LYMPHOCYTES/100 LEUKOCYTES IN BLOOD-CELLAVISION 6 % Low 15-45 [facility] Comment on above: Performed By: #### L [id number], [id number] ####Ethyl Blender: UNA ARCE ([phone])[facility] [place] ([facility])[address] [place] [address] [place] METAMYELOCYTES TOTAL PER COUNTED LEUKOCYTES BY MANUAL COUNT Normal [facility] Comment on above: Performed By: #### L [id number], [id number] ####Ethyl Blender: UNA YAZMIN ([phone])[facility] [place] ([facility])[address] [place] [address] [place] MONOCYTES (10*3/UL) IN BLOOD-CELLAVISION 0.5 10*3/uL Normal 0.0-0.[address] [facility] Comment on above: Performed By: #### L [id number], [id number] ####Ethyl Blender: UNA YAZMIN ([phone])[facility] [place] ([facility])[address] [place] [address] [place] MONOCYTES TOTAL PER COUNTED LEUKOCYTES BY MANUAL COUNT 4 Normal [facility] Comment on above: Performed By: #### L [id number], [id number] ####Ethyl Blender: UNA ONURCER ([phone])[facility] [place] ([facility])[address] [place] [address] [place] MONOCYTES/100 LEUKOCYTES IN BLOOD-LUCIANA 4 % Low 5-[address] [facility] Comment on above: Performed By: #### L [id number], [id number] ####Ethyl Blender: UNA ARCE ([phone])[facility] ([facility])[address] MYELOCYTES COUNTED BY MANUAL COUNT [facility] Comment on above: Performed By: #### L [id number], [id number] ####Ethyl Blender: UNA ARCE ([phone])[facility] ([facility])[address] [place] [address] [place] NEUTROPHILS BAND FORM/100 LEUKOCYTES IN BLOOD-CELLAVISI 1 % High <=0 [facility] Comment on above: Performed By: #### L [id number], [id number] ####Ethyl Blender: UNA ARCE ([phone])[facility] [place] ([facility])[address] NEUTROPHILS TOTAL PER COUNTED LEUKOCYTES BY MANUAL COUNT 83 [facility] Comment on above: Performed By: #### L [id number], [id number] ####Ethyl Blender: UNA ARCE ([phone])[facility] [place] ([facility])[address] [place] [address] [place] PROMYELOCYTES TOTAL PER COUNTED LEUKOCYTES BY MANUAL COUNT [facility] Comment on above: Performed By: #### L [id number], [id number] ####Ethyl Blender: UNA ARCE ([phone])[facility] [place] ([facility])[address] [place] [address] [place] RBC MORPHOLOGY IN BLOOD abnormal Normal S [facility] Comment on above: Performed By: #### L [id number], [id number] ####Ethyl Blender: UNA ARCE ([phone])[facility] [place] ([facility])[address] [place] [address] [place] SEGMENTED NEUTROPHILS (10*3/UL) IN BLOOD-CELLAVISION 9.8 10*3/uL High 1.8-7.5 [facility] Comment on above: Performed By: #### L [id number], [id number] ####Ethyl Blender: UNA ARCE ([phone])[facility] [place] ([facility])[address] SEGMENTED NEUTROPHILS/100 LEUKOCYTES-CE 81 % Normal 38-[address] [facility] Comment on above: Performed By: #### L [id number], [id number] ####Ethyl Blender: UNA ARCE ([phone])[facility] [employer] [facility] ([facility])[address] UNCLASSIFIED CELLS TOTAL PER COUNTED LEUKOCYTES BY MANUAL COUNT Normal [facility] Comment on above: Performed By: #### L [id number], [id number] ####Ethyl Blender: UNA ARCE ([phone])[facility] ([facility])[address] VARIANT LYMPHOCYTES TOTAL PER COUNTED LEUKOCYTES BY MANUAL COUNT Normal [facility] Comment on above: Performed By: #### L [id number], [id number] ####Ethyl Blender: UNA ARCE ([phone])[facility] ([facility])[address] [place] [address] [place] Magnesium [Mass/Vol]on 04-12 [facility] No Panel Informationon 04-12 Bands Manual 1 [facility] Eosinophils Manual 7 High 0 - 1 [facility] Interpretation and review of laboratory results Abnormal [facility] Lymphocytes Manual 6 [facility] Monocytes Manual 4 [facility]th Neutrophils Manual 83 [facility] Interpretation and review of laboratory results Normal [facility] PHOSPHORUSon 04-12-2025 Phosphate [Mass/Vol] 2.7 mg/dL Normal 2.3-4.7 [facility] Comment on above: Performed By: #### L AB17, [id number], [id number] ####Ethyl Blender: UNA ARCE ([phone])[facility] [employer] [facility] [facility] ([facility])[address] [place] [address] [place] Phosphate [Moles/Vol]on Phosphate [Mass/Vol] 2.7 mg/dL 2.3 - 4 .7 mg/dL [facility] Progress Noteon 04-12-2025 Progress Note Normal [facility] Progress [facility] CBC W Auto Differential pane l (Bld)on 04-11-2025 Erythrocyte distribution width (RBC) [Ratio] 24.2 % High 11.5 - 15.0 % [facility] Hematocrit (Bld) [Volume fraction] 28.9 % Low 40.0 - 52.0 % [facility] Hemoglobin (Bld) [Mass/Vol] 7.9 g/dL Low 13.0 - 18.0 g/dL [facility] Interpretation and review of laboratory results Abnormal [facility] MCH (RBC) [Entitic mass] 22.7 pg Low 26. 0 - 34.0 pg [facility] MCHC (RBC) [Mass/Vol] 27.3 % Low 30.5 - 36.0 % [facility] MCV (RBC) [Entitic vol] 83 fL 77.0 - 99.0 fL [facility] Platelet mean volume (Bld) [Entitic vol] 9.2 fL 9.0 - 12.7 fL [facility] Platelets (Bld) [#/Vol] 313 10*3/uL 140 - 440 10*3/uL [facility] RBC (Bld) [#/Vol] 3.48 10*6/uL Low 4.40 - 5.9 0 10*6/uL [facility] WBC (Bld) [#/Vol] 13.8 10*3/uL High 3.6 - 10.7 10*3/uL [facility] CBC WITH AUTO DIFFERENTIALon 04-11-2025 Erythrocyte distribution width (RBC) [Ratio] 24.2 % High 11.5-15.0 [facility] Comment on above: Performed By: #### L [id number], [id number] ####Ethyl Blender: UNA ARCE ([phone])[facility] [place] [address] Hematocrit (Bld) [Volume fraction] 28.9 % Low 40.0-52.[address] [facility] Comment on above: Performed By: #### L [id number], [id number] ####Ethyl Blender: UNA MOHRCER ([phone])[facility] (SB[facility]AB)[address] Hemoglobin (Bld) [Mass/Vol] 7.9 g/dL Low 13.0-18.0 [facility] Comment on above: Performed By: #### L [id number], [id number] ####Ethyl Blender: UNA MOHRCER ([phone])[facility] ([facility])[address] MCH (RBC) [Entitic mass] 22.7 pg Low 26.0-34.0 [facility] Comment on above: Performed By: #### L [id number], [id number] ####Ethyl Blender: UNA YAZMIN ([phone])[facility] ([facility])[address] MCHC 27.3 % Low 30.5-36.0 [facility] Comment on above: Performed By: #### L [id number], [id number] ####Ethyl Blender: UNA STAFUFERMELANIE ([phone])[facility] [place] (SBHLAB)[address] MCV (RBC) [Entitic vol] 83.0 fL Normal 77.0-99.0 S [facility] Comment on above: Performed By: #### L [id number], [id number] ####Ethyl Blender: UNA ARCE ([phone])[facility] [place] (SB[facility]AB)[address] Platelet mean volume (Bld) [Entitic vol] 9.2 fL Normal 9.0-12.7 [facility] Comment on above: Performed By: #### L [id number], [id number] ####Ethyl Blender: UNA STAUFFERMELANIE ([phone])[facility] [place] (SB[facility])[address] Platelets (Bld) [#/Vol] 313 10*3/uL Normal 140-440 [facility] Comment on above: Performed By: #### L [id number], [id number] ####Ethyl Blender: UNA ARCE ([phone])[facility] [place] ([facility])[address] RBC (Bld) [#/Vol] 3.48 10*6/uL Low 4.40-5.90 [facility] Comment on above: Performed By: #### L [id number], [id number] ####Ethyl Blender: UNA ARCE ([phone])[facility] ([facility])[address] WBC (Bld) [#/Vol] 13.8 10*3/uL High 3.6-10.7 [facility] Comment on above: Performed By: #### L [id number], [id number] ####Ethyl Blender: UNA ARCE ([phone])[facility] [place] ([facility])[address] COMPREHENSIVE METABOLIC PANE Anant 04-11-2025 Albumin [Mass/Vol] 2.4 g/dL Low 3.4-4.8 [facility] Comment on above: Performed By: #### L AB17, [id number], [id number] ####Ethyl Blender: UNA ARCE ([id number])[facility] [place] ([facility])[address] [place] [address] ALP [Catalytic activity/Vol] 53 U/L Normal 40-150 [facility] Comment on above: Performed By: #### L AB17, [id number], [id number] ####Ethyl Blender: UNA ARCE ([phone])[facility] [place] ([facility])[address] ALT [Catalytic activity/Vol] U/L Normal <40 [facility] Comment on above: Performed By: #### L AB17, DLW666, HUY610 ####Ethyl Blender: UNA ARCE ([id number])[facility] [place] ([facility])[address] Anion gap [Moles/Vol] 10 mmol/L Normal 3-13 [facility] Comment on above: Performed By: #### L AB17, XMV073, GGE505 ####Ethyl Blender: UNA ARCE ([phone])[facility] (SB[facility]AB)[address] AST [Catalytic activity/Vol] 18 U/L Normal <34 [facility] Comment on above: Performed By: #### L AB17, [id number], JML042 ####Ethyl Blender: UNA ARCE ([phone])[facility] [place] (SB[facility]AB)[address] Bilirubin [Mass/Vol] 0.7 mg/dL Normal <1.2 [facility] Comment on above: Performed By: #### L AB17, [id number], LMN517 ####Ethyl Blender: UNA ARCE ([phone])[facility]Angel [place] (SBHLAB)[address] Calcium [Mass/Vol] 8.1 mg/dL Low 8.8-10.0 [facility] Comment on above: Performed By: #### L AB17, KSK726, HSQ866 ####Ethyl Blender: UNA ARCE ([phone])[facility]ST[facility] (SBHLAB)[address] Chloride [Moles/Vol] 94 mmol/L Low 98-107 [facility] Comment on above: Performed By: #### L AB17, JGS778, FSB978 ####Ethyl Blender: UNA ARCE ([phone])[facility] [place] ([facility])[address] [place] [address] [place] CO2 [Moles/Vol] 35 mmol/L High 23-31 [facility] Comment on above: Performed By: #### L AB17, FDS434, KSC282 ####Ethyl Blender: UNA ARCE ([phone])[facility] [place] ([facility])[address] Creatinine [Mass/Vol] 1.55 mg/dL High 0.72-1.25 [facility] Comment on above: Performed By: #### L AB17, BBO157, LRR098 ####Ethyl Blender: UNA ARCE ([phone])[facility]Angel [facility] (SB[facility])[address] GLOMERULAR FILTRATION RATE ML/MIN/1.73 SQ M.PREDICTED 42.5 mL/min/1.73m*2 Low >60.0 [facility] Comment on above: Result Comment: Calc ulation based on the Chronic Kidney Disease Epidemiology Collaboration (CKD-EPI) equation refit without adjustment for race Performed By: #### L AB17, KQF242, SQI015 ####Ethyl Blender: UNA ARCE ([phone])[facility] [place] (SB[facility])[address] Glucose [Mass/Vol] 103 mg/dL Normal 82-115 [facility] Comment on above: Performed By: #### L AB17, [id number], DWE647 ####Ethyl Blender: UNA ARCE ([phone])[facility] [place] (HLAB)[address] Potassium [Moles/Vol] 3.6 mmol/L Normal 3.5-5.1 [facility] Comment on above: Result Comment: [facility] potassium values may be up to 0.5 mmol/L lower than serum values. Performed By: #### L AB17, DJB705, KZY904 ####Ethyl Blender: UNA ARCE ([phone])[facility] ([facility])[address] Protein [Mass/Vol] 6.1 g/dL Low 6.4-8.3 [facility] Comment on above: Performed By: #### L AB17, STB420, EKK835 ####Ethyl Blender: UNA ARCE ([phone])[facility] ([facility])[address] Sodium [Moles/Vol] 139 mmol/L Normal 136-145 [facility] Comment on above: Performed By: #### L AB17, KUQ620, TPQ338 ####Ethyl Blender: UNA STAUFFERMELANIE ([phone])[facility] (SB[facility])[address] Urea nitrogen [Mass/Vol] 36 mg/dL High 9-23 [facility] Comment on above: Performed By: #### L AB17, YCV862, MQS501 ####Ethyl Blender: UNA BERMUDEZPEDRO ([phone])[facility] ([facility])[address] Comprehensive metabolic 1998 panelon 04-11-2025 Albumin [Mass/Vol] 2.4 g/dL Low 3.4 - 4.8 g/dL [facility] ALP [Catalytic activity/Vol] 53 U/L 40 - 150 U/L [facility] ALT [Catalytic activity/Vol] U/L NINF - 40 U/L [facility] Anion gap [Moles/Vol] 10 mmol/L 3 - 13 mmol/L [facility] AST [Catalytic activity/Vol] 18 U/L [facility] - 34 U/L [facility] Bilirubin [Mass/Vol] 0.7 mg/dL NINF - 1.2 mg/dL [facility] Calcium [Mass/Vol] 8.1 mg/dL Low 8.8 - 10. 0 mg/dL [facility] Chloride [Moles/Vol] 94 mmol/L Low 98 - 10 7 mmol/L [facility] CO2 [Moles/Vol] 35 mmol/L High 23 - 31 mmol/L [facility] Creatinine [Mass/Vol] 1.55 mg/dL High 0.72 - 1.25 mg/dL [facility] GFR/1.73 sq M.predicted (S/P/Bld) [Vol rate/Area] 42.5 mL/min Low - PINF [facility] Glucose [Mass/Vol] 103 mg/dL 82 - 115 mg/dL [facility] Interpretation and review of laboratory results Abnormal [facility] Potassium [Moles/Vol] 3.6 mmol/L 3.5 - 5.1 mmol/L [facility] Protein [Mass/Vol] 6.1 g/dL Low 6.4 - 8.3 g/dL [facility] Sodium [Moles/Vol] 139 mmol/L 136 - 145 mmol/L [facility] Urea nitrogen [Mass/Vol] 36 mg/dL High 9 - 23 mg/d L [facility] Laboratory - Chemistry and C hemistry - challengeon 04-11-2025 Magnesium [Mass/Vol] 1.7 mg/dL 1.6 - 2 .6 mg/dL [facility] Laboratory - Hematology and Cell countson 04-11-2025 Anisocytosis Ql (Bld) Moderate Abnormal (none) [facility] Basophilic stippling LM Ql (Bld) Slight Abnormal (none) [facility] Basophils (Bld) [#/Vol] 0.1 10*3/uL 0.0 - 0.2 10*3/uL [facility] Basophils/100 WBC (Bld) 1 % 0 - 2 % S [facility] Dacrocytes LM Ql (Bld) Rare Abnormal (none) [facility] Eosinophils (Bld) [#/Vol] 0.1 10*3/uL 0.0 - 0.5 10*3/uL [facility] Eosinophils/100 WBC (Bld) 1 % 0 - 6 % [facility] Hypochromia Ql (Bld) Slight Abnormal (none) [facility] Lymphocytes (Bld) [#/Vol] 1.4 10*3/uL 1.0 - 4.3 10*3/uL [facility] Lymphocytes/100 WBC (Bld) 10 % Low 15 - 45 % [facility] Monocytes (Bld) [#/Vol] 1.8 10*3/uL High 0.0 - 0.9 10*3/uL [facility] Monocytes/100 WBC (Bld) 13 % 5 - 13 % [facility] Neutrophils (Bld) [#/Vol] 10.5 10*3/uL High 1.8 - 7.5 10*3/uL [facility] Ovalocytes LM Ql (Bld) Slight Abnormal (none) [facility] Poikilocytosis LM Ql (Bld) Slight Abnormal (none) [facility] Polychromasia LM Ql (Bld) Slight Abnormal (none) [facility] RBC morphology finding Nom (Bld) abnormal [facility] Segmented neutrophils/100 WBC (Bld) 76 % 38 - 82 % [facility] Stomatocytes LM Ql (Bld) Slight Abnormal (none) [facility] Target cells LM Ql (Bld) Slight Abnormal (none) [facility] MAGNESIUMon 04-11-2025 Magnesium [Mass/Vol] 1.7 mg/dL Normal 1.6-2.6 [facility] Comment on above: Result Comment: ORDE R COMMENTS:Higher values can be expected in females during menses. Performed By: #### L AB17, [id number], [id number] ####Ethyl Blender: UNA ARCE ([phone])[facility] [place] ([facility])[address] MANUAL DIFFERENTIAL (CELLAVI BANDAR)on 04-11-2025 ANISOCYTOSIS PRESENCE IN BLOOD BY LIGHT MICROSCOPY Moderate Abnormal (none) [facility] Comment on above: Performed By: #### L [id number], [id number] ####Ethyl Blender: UNA ARCE ([phone])[facility] [place] ([facility])[address] BAND NEUTROPHILS TOTAL PER COUNTED LEUKOCYTES BY MANUAL COUNT Normal [facility] Comment on above: Performed By: #### L [id number], [id number] ####Ethyl Blender: UNA ARCE ([id number])[facility] [place] ([facility])[address] BASOPHILIC STIPPLING PRESENCE IN BLOOD BY LIGHT MICROSCOPY Slight Abnormal (none) [facility] Comment on above: Performed By: #### L [id number], [id number] ####Ethyl Blender: UNA ARCE ([phone])[facility] [place] ([facility])[address] BASOPHILS (10*3/UL) IN BLOOD-CELLAVISION 0.1 10*3/uL Normal 0.0-0.2 [facility] Comment on above: Performed By: #### L [id number], [id number] ####Ethyl Blender: UNA ARCE ([phone])[facility] [place] ([facility])[address] [place] [address] [place] BASOPHILS TOTAL PER COUNTED LEUKOCYTES BY MANUAL COUNT [address] [facility] Comment on above: Performed By: #### L [id number], [id number] ####Ethyl Blender: UNA ARCE ([phone])[facility] [place] ([facility])[address] [place] [address] [place] BASOPHILS/100 LEUKOCYTES IN BLOOD-CELLAVISION 1 % Normal 0-2 [facility] Comment on above: Performed By: #### L [id number], [id number] ####Ethyl Blender: UNA ARCE ([phone])[facility] [place] ([facility])[address] BLASTS TOTAL PER COUNTED LEUKOCYTES BY MANUAL COUNT Normal [facility] Comment on above: Performed By: #### L [id number], [id number] ####Ethyl Blender: UNA MOHRCER ([id number])[facility] [place] ([facility])[address] DACROCYTES PRESENCE IN BLOOD BY LIGHT MICROSCOPY Rare Abnormal (none) [facility] Comment on above: Performed By: #### L [id number], [id number] ####Ethyl Blender: UNA ARCE ([phone])[facility] [place] ([facility])[address] [place] [address] [place] EOSINOPHILS (10*3/UL) IN BLOOD-CELLAVISION 0.1 10*3/uL Normal 0.0-0.[address] [facility] Comment on above: Performed By: #### L [id number], [id number] ####Ethyl Blender: UNA MOHRCER ([phone])[facility] [place] ([facility])[address] [place] [address] [place] EOSINOPHILS TOTAL PER COUNTED LEUKOCYTES BY MANUAL COUNT 1 Normal 0-[address] [facility] Comment on above: Performed By: #### L [id number], [id number] ####Ethyl Blender: UNA MOHRCER ([phone])[facility] [place] ([facility])[address] [place] [address] [place] EOSINOPHILS/100 LEUKOCYTES IN BLOOD-CELLAVISION 1 % Normal 0-6 [facility] Comment on above: Performed By: #### L [id number], [id number] ####Ethyl Blender: UNA ARCE ([phone])[facility] [place] ([facility])[address] [place] [address] [place] HYPOCHROMIA (PRESENCE) IN BLOOD BY LIGHT MICROSCOPY Slight Abnormal (none) [facility] Comment on above: Performed By: #### L [id number], [id number] ####Ethyl Blender: UNA ARCE ([phone])[facility] [place] ([facility])[address] [place] [address] [place] LYMPHOCYTES (10*3/UL) IN BLOOD-CELLAVISION 1.4 10*3/uL Normal 1.0-4.3 [facility] Comment on above: Performed By: #### L [id number], [id number] ####Ethyl Blender: UNA ARCE ([phone])[facility] ([facility])[address] [place] [address] [place] LYMPHOCYTES TOTAL PER COUNTED LEUKOCYTES BY MANUAL COUNT 10 Normal [facility] Comment on above: Performed By: #### L [id number], [id number] ####Ethyl Blender: UNA ARCE ([phone])[facility] [place] ([facility])[address] [place] [address] [place] LYMPHOCYTES/100 LEUKOCYTES IN BLOOD-CELLAVISION 10 % Low 15-45 [facility] Comment on above: Performed By: #### L [id number], [id number] ####Ethyl Blender: UNA ARCE ([id number])[facility] [place] ([facility])[address] [place] [address] [place] METAMYELOCYTES TOTAL PER COUNTED LEUKOCYTES BY MANUAL COUNT Normal [facility] Comment on above: Performed By: #### L [id number], [id number] ####Ethyl Blender: UNA ARCE ([phone])[facility] [place] ([facility])[address] [place] [address] [place] MONOCYTES (10*3/UL) IN BLOOD-CELLAVISION 1.8 10*3/uL High 0.0-0.[address] [facility] Comment on above: Performed By: #### L [id number], [id number] ####Ethyl Blender: UNA ARCE ([phone])[facility] [place] ([facility])[address] [place] [address] [place] MONOCYTES TOTAL PER COUNTED LEUKOCYTES BY MANUAL COUNT [address] [facility] Comment on above: Performed By: #### L [id number], [id number] ####Ethyl Blender: UNA ARCE ([phone])[facility] [place] ([facility])[address] [place] [address] [place] MONOCYTES/100 LEUKOCYTES IN BLOOD-LUCIANA 13 % Normal 5-[address] [facility] Comment on above: Performed By: #### L [id number], [id number] ####Ethyl Blender: UNA ARCE ([id number])[facility] [place] ([facility])[address] [place] [address] [place] MYELOCYTES COUNTED BY MANUAL COUNT Normal [facility] Comment on above: Performed By: #### L [id number], [id number] ####Ethyl Blender: UNA ARCE ([phone])[facility] [place] ([facility])[address] [place] [address] [place] NEUTROPHILS TOTAL PER COUNTED LEUKOCYTES BY MANUAL COUNT [address] [facility] Comment on above: Performed By: #### L [id number], [id number] ####Ethyl Blender: UNA ARCE ([id number])[facility] [place] ([facility])[address] [place] [address] [place] OVALOCYTES PRESENCE IN BLOOD BY LIGHT MICROSCOPY Slight Abnormal (none) [facility] Comment on above: Performed By: #### L [id number], [id number] ####Ethyl Blender: UNA ARCE ([phone])[facility] [place] ([facility])[address] [place] [address] [place] POIKILOCYTOSIS (PRESENCE) IN BLOOD BY LIGHT MICROSCOPY Slight Abnormal (none) [facility] Comment on above: Performed By: #### L [id number], [id number] ####Ethyl Blender: UNA ARCE ([phone])[facility] [place] ([facility])[address] [place] [address] [place] POLYCHROMASIA IN BLOOD BY LIGHT MICROSCOPY Slight Abnormal (none) [facility] Comment on above: Performed By: #### L [id number], [id number] ####Ethyl Blender: UNA ARCE ([phone])[facility] [place] ([facility])[address] [place] [address] [place] PROMYELOCYTES TOTAL PER COUNTED LEUKOCYTES BY MANUAL COUNT Normal [facility] Comment on above: Performed By: #### L [id number], [id number] ####Ethyl Blender: UNA ARCE ([phone])[facility] [place] ([facility])[address] [place] [address] [place] RBC MORPHOLOGY IN BLOOD abnormal Normal S [facility] Comment on above: Performed By: #### L [id number], [id number] ####Ethyl Blender: UNA ARCE ([phone])[facility] [place] ([facility])[address] [place] [address] [place] SEGMENTED NEUTROPHILS (10*3/UL) IN BLOOD-CELLAVISION 10.5 10*3/uL High 1.8-7.5 [facility] Comment on above: Performed By: #### L [id number], [id number] ####Ethyl Blender: UNA ARCE ([phone])[facility] [place] ([facility])[address] [place] [address] [place] SEGMENTED NEUTROPHILS/100 LEUKOCYTES-CE 76 % Normal 38-82 [facility] Comment on above: Performed By: #### L [id number], [id number] ####Ethyl Blender: UNA ARCE ([phone])[facility] [place] ([facility])[address] [place] [address] [place] STOMATOCYTES IN BLOOD BY LIGHT MICROSCOPY Slight Abnormal (none) [facility] Comment on above: Performed By: #### L [id number], [id number] ####Ethyl Blender: UNA ARCE ([phone])[facility] [place] (SB[facility])[address] TARGET CELLS IN BLOOD BY LIGHT MICROSCOPY Slight Abnormal (none) [facility] Comment on above: Performed By: #### L [id number], [id number] ####Ethyl Blender: UNA ARCE ([id number])[facility] [place] ([facility])[address] UNCLASSIFIED CELLS TOTAL PER COUNTED LEUKOCYTES BY MANUAL COUNT Normal [facility] Comment on above: Performed By: #### L [id number], [id number] ####Ethyl Blender: UNA ARCE ([phone])[facility] (SB[facility])[address] VARIANT LYMPHOCYTES TOTAL PER COUNTED LEUKOCYTES BY MANUAL COUNT Normal [facility] Comment on above: Performed By: #### L [id number], [id number] ####Ethyl Blender: UNA ARCE ([phone])[facility] Magnesium [Mass/Vol]on 04-11 [facility] No Panel Informationon 04-11 Basophils Manual 1 [facility] Eosinophils Manual 1 0 - 1 [facility] Interpretation and review of laboratory results Abnormal [facility] Lymphocytes Manual 10 [facility] Monocytes Manual 13 [facility] Neutrophils Manual 79 [facility] Interpretation and review of laboratory results Normal [facility] PHOSPHORUSon 04-11-2025 Phosphate [Mass/Vol] 2.5 mg/dL Normal 2.3-4.7 [facility] Comment on above: Performed By: #### L AB17, [id number], [id number] ####Ethyl Blender: UNA ARCE ([phone])[facility] (SBAB)[address] [place] [address] [place] Phosphate [Moles/Vol]on Phosphate [Mass/Vol] 2.5 mg/dL 2.3 - 4 .7 mg/dL [facility] Progress Noteon 04-11-2025 Progress Note Normal [facility] Normal [facility] Progress Note Normal [facility] Normal [facility] XR Chest Single viewon 04-11 [facility] RADIOLOGY [facility] Radiology Study observation (narrative) [facility] XR Chest Single viewOrdered By: Katalina Corona on 04-11-2025 [facility] Work Phone: [phone] 04-10-2025 [id number] Normal [facility] CBC W Auto Differential pane l (Bld)on 04-10-2025 Erythrocyte distribution width (RBC) [Ratio] 22.9 % High 11.5 - 15.0 % [facility] Hematocrit (Bld) [Volume fraction] 26.1 % Low 40.0 - 52.0 % [facility] Hemoglobin (Bld) [Mass/Vol] 7.2 g/dL Low 13.0 - 18.0 g/dL [facility] Interpretation and review of laboratory results Abnormal [facility] MCH (RBC) [Entitic mass] 22.6 pg Low 26. 0 - 34.0 pg [facility] MCHC (RBC) [Mass/Vol] 27.6 % Low 30.5 - 36.0 % [facility] MCV (RBC) [Entitic vol] 82.1 fL 77.0 - 99.0 fL [facility] Platelet mean volume (Bld) [Entitic vol] 9.1 fL 9.0 - 12.7 fL [facility] Platelets (Bld) [#/Vol] 294 10*3/uL 140 - 440 10*3/uL [facility] RBC (Bld) [#/Vol] 3.18 10*6/uL Low 4.40 - 5.9 0 10*6/uL [facility] WBC (Bld) [#/Vol] 12.4 10*3/uL High 3.6 - 10.7 10*3/uL [facility] CBC WITH AUTO DIFFERENTIALon 04-10-2025 Erythrocyte distribution width (RBC) [Ratio] 22.9 % High 11.5-15.0 [facility] Comment on above: Performed By: #### L [id number], [id number] ####Ethyl Blender: UNA ARCE ([phone])[facility] [place] (SBHLAB)[address] Hematocrit (Bld) [Volume fraction] 26.1 % Low 40.0-52.0 [facility] Comment on above: Performed By: #### L [id number], [id number] ####Ethyl Blender: UNA ARCE ([phone])[facility] [place] ([facility])[address] Hemoglobin (Bld) [Mass/Vol] 7.2 g/dL Low 13.0-18.0 [facility] Comment on above: Performed By: #### L [id number], [id number] ####Ethyl Blender: UNA ARCE ([phone])[facility] [place] ([facility])[address] MCH (RBC) [Entitic mass] 22.6 pg Low 26.0-34.0 [facility] Comment on above: Performed By: #### L [id number], [id number] ####Ethyl Blender: UNA ARCE ([phone])[facility] [place] (SBHLAB)[address] MCHC 27.6 % Low 30.5-36.0 [facility] Comment on above: Performed By: #### L [id number], [id number] ####Ethyl Blender: UNA ARCE ([phone])[facility] [place] ([facility])[address] MCV (RBC) [Entitic vol] 82.1 fL Normal 77.0-99.0 [facility] Comment on above: Performed By: #### L [id number], [id number] ####Ethyl Blender: UNA ARCE ([phone])[facility] [place] ([facility])[address] Platelet mean volume (Bld) [Entitic vol] 9.1 fL Normal 9.0-12.7 [facility] Comment on above: Performed By: #### L [id number], [id number] ####Ethyl Blender: UNA ARCE ([id number])[facility] [place] (SBHLAB)[address] Platelets (Bld) [#/Vol] 294 10*3/uL Normal 140-440 [facility] Comment on above: Performed By: #### L [id number], [id number] ####Ethyl Blender: UNA ARCE ([phone])[facility] (SBHL[facility])[address] RBC (Bld) [#/Vol] 3.18 10*6/uL Low 4.40-5.90 [facility] Comment on above: Performed By: #### L [id number], [id number] ####Ethyl Blender: UNA ARCE ([phone])[facility] (SB[facility])[address] WBC (Bld) [#/Vol] 12.4 10*3/uL High 3.6-10.[address] [facility] Comment on above: Performed By: #### L [id number], [id number] ####Ethyl Blender: UNA ARCE ([phone])[facility] ([facility])[address] COMPREHENSIVE METABOLIC PANE Anant 04-10-2025 Albumin [Mass/Vol] 2.2 g/dL Low 3.4-4.[address] [facility] Comment on above: Performed By: #### L AB113, LAB17, [id number] ####Ethyl Blender: UNA ARCE ([phone])[facility] (SB[facility])[address] ALP [Catalytic activity/Vol] 50 U/L Normal 40-[address] [facility] Comment on above: Performed By: #### L AB113, LAB17, [id number] ####Ethyl Blender: UNA ARCE ([phone])[facility] [place] (SB[facility])[address] ALT [Catalytic activity/Vol] U/L Normal <40 [facility] Comment on above: Performed By: #### L AB113, LAB17, [id number] ####Ethyl Blender: UNA ARCE ([phone])[facility] [place] ([facility])[address] Anion gap [Moles/Vol] 12 mmol/L Normal 3-13 [facility] Comment on above: Performed By: #### L ABTerrance, LAB17, [id number] ####Ethyl Blender: UNA ARCE ([phone])[facility] [place] ([facility])[address] AST [Catalytic activity/Vol] 16 U/L Normal <34 [facility] Comment on above: Performed By: #### L AB113, LAB17, GIQ694 ####Ethyl Blender: UNA ARCE ([id number])[facility] [place] (SB[facility])[address] Bilirubin [Mass/Vol] 0.6 mg/dL Normal <1.2 [facility] Comment on above: Performed By: #### L ABTerrance, LAB17, UJK750 ####Ethyl Blender: UNA ARCE ([id number])[facility] [place] ([facility])[address] Calcium [Mass/Vol] 8.0 mg/dL Low 8.8-10.[address] [facility] Comment on above: Performed By: #### L AB113, LAB17, [id number] ####Ethyl Blender: UNA ARCE ([id number])[facility] [place] ([facility])[address] Chloride [Moles/Vol] 95 mmol/L Low 98-107 [facility] Comment on above: Performed By: #### L AB113, LAB17, [id number] ####Ethyl Blender: UNA ARCE ([id number])[facility] (SBHLAB)[address] [place] [address] [place] CO2 [Moles/Vol] 35 mmol/L High 23-31 [facility] Comment on above: Performed By: #### L ABTerrance, LAB17, [id number] ####Ethyl Blender: UNA ARCE ([phone])[facility] (SB[facility])[address] Creatinine [Mass/Vol] 1.65 mg/dL High 0.72-1.25 [facility] Comment on above: Performed By: #### Gilbert RAMSEY, LAB17, GMP117 ####Ethyl Blender: UNA ARCE ([phone])[facility] ([facility])[address] GLOMERULAR FILTRATION RATE ML/MIN/1.73 SQ M.PREDICTED 39.4 mL/min/1.73m*2 Low >60.0 [facility] Comment on above: Result Comment: Calc ulation based on the Chronic Kidney Disease Epidemiology Collaboration (CKD-EPI) equation refit without adjustment for race Performed By: #### Gilbert RAMSEY, LAB17, OYR325 ####Ethyl Blender: UNA ARCE ([phone])[facility] ([facility])[address] Glucose [Mass/Vol] 98 mg/dL Normal 82-115 [facility] Comment on above: Performed By: #### L ABTerrance, LAB17, [id number] ####Ethyl Blender: UNA ARCE ([phone])[facility] ([facility])[address] [place] [address] [place] Potassium [Moles/Vol] 3.2 mmol/L Low 3.5-5.1 [facility] Comment on above: Result Comment: [facility] potassium values may be up to 0.5 mmol/L lower than serum values. Performed By: #### L ABTerrance, LAB17, [id number] ####Ethyl Blender: UNA STAUFFERMELANIE ([phone])[facility] [place] (SBHLAB)[address] Protein [Mass/Vol] 5.5 g/dL Low 6.4-8.3 [facility] Comment on above: Performed By: #### L AB113, LAB17, JUP081 ####Ethyl Blender: UNA BERMUDEZPEDRO ([phone])[facility] [place] (SBHLAB)[address] Sodium [Moles/Vol] 142 mmol/L Normal 136-145 [facility] Comment on above: Performed By: #### L AB113, LAB17, [id number] ####Ethyl Blender: UNA BERMUDEZPEDRO ([phone])[facility] [place] (SB[facility])[address] Urea nitrogen [Mass/Vol] 32 mg/dL High 9-23 [facility] Comment on above: Performed By: #### L AB113, LAB17, NBA325 ####Ethyl Blender: UNA BERMUDEZPEDRO ([phone])[facility] (SBHLAB)[address] Comprehensive metabolic 1998 panelon 04-10-2025 Albumin [Mass/Vol] 2.2 g/dL Low 3.4 - 4.8 g/dL [facility] ALP [Catalytic activity/Vol] 50 U/L 40 - 150 U/L [facility] ALT [Catalytic activity/Vol] U/L NINF - 40 U/L [facility] Anion gap [Moles/Vol] 12 mmol/L 3 - 13 mmol/L [facility] AST [Catalytic activity/Vol] 16 U/L NINF - 34 U/L [facility] Bilirubin [Mass/Vol] 0.6 mg/dL NINF - 1.2 mg/dL [facility] Calcium [Mass/Vol] 8 mg/dL Low 8.8 - 10. 0 mg/dL [facility] Chloride [Moles/Vol] 95 mmol/L Low 98 - 10 7 mmol/L [facility] CO2 [Moles/Vol] 35 mmol/L High 23 - 31 mmol/L [facility] Creatinine [Mass/Vol] 1.65 mg/dL High 0.72 - 1.25 mg/dL [facility] GFR/1.73 sq M.predicted (S/P/Bld) [Vol rate/Area] 39.4 mL/min Low - PINF [facility] Glucose [Mass/Vol] 98 mg/dL 82 - 115 mg/dL [facility] Interpretation and review of laboratory results Abnormal [facility] Potassium [Moles/Vol] 3.2 mmol/L Low 3.5 - 5.1 mmol/L [facility] Protein [Mass/Vol] 5.5 g/dL Low 6.4 - 8.3 g/dL [facility] Sodium [Moles/Vol] 142 mmol/L 136 - 145 mmol/L [facility] Urea nitrogen [Mass/Vol] 32 mg/dL High 9 - 23 mg/d L [facility] Laboratory - Chemistry and C hemistry - challengeon 04-10-2025 Magnesium [Mass/Vol] 1.7 mg/dL 1.6 - 2 .6 mg/dL [facility] Laboratory - Hematology and Cell countson 04-10-2025 Anisocytosis Ql (Bld) Slight Abnormal (none) [facility] Band form neutrophils (Bld) [#/Vol] 0.2 10*3/uL High NINF - 0.0 10*3/uL [facility] Band form neutrophils/100 WBC (Bld) 2 % High NINF - 0 % [facility] Basophils (Bld) [#/Vol] 0.5 10*3/uL High 0.0 - 0.2 10*3/uL [facility] Basophils/100 WBC (Bld) 4 % High 0 - 2 % [facility] Eosinophils (Bld) [#/Vol] 0.5 10*3/uL 0.0 - 0.5 10*3/uL [facility] Eosinophils/100 WBC (Bld) 4 % 0 - 6 % [facility] Lymphocytes (Bld) [#/Vol] 0.9 10*3/uL Low 1.0 - 4.3 10*3/uL [facility] Lymphocytes/100 WBC (Bld) 7 % Low 15 - 45 % [facility] Monocytes (Bld) [#/Vol] 0.5 10*3/uL 0.0 - 0.9 10*3/uL [facility] Monocytes/100 WBC (Bld) 4 % Low 5 - 13 % [facility] Myelocytes (Bld) [#/Vol] 0.1 10*3/uL High SELENE F - 0.0 10*3/uL [facility] Myelocytes/100 WBC (Bld) 1 % High NINF - 0 % [facility] Neutrophils (Bld) [#/Vol] 9.9 10*3/uL High 1.8 - 7.5 10*3/uL [facility] Poikilocytosis LM Ql (Bld) Slight Abnormal (none) [facility] RBC morphology finding Nom (Bld) abnormal [facility] Segmented neutrophils/100 WBC (Bld) 78 % 38 - 82 % [facility] Stomatocytes LM Ql (Bld) Moderate Abnormal (none) [facility] MAGNESIUMon 04-10-2025 Magnesium [Mass/Vol] 1.7 mg/dL Normal 1.6-2.6 [facility] Comment on above: Result Comment: YARELI [place] COMMENTS:Higher values can be expected in females during menses. Performed By: #### L AB113, LAB17, [id number] ####Ethyl Blender: UNA ARCE ([phone])[facility] ([facility])[address] [place] [address] MANUAL DIFFERENTIAL (CELLAVI BANDAR)on 04-10-2025 ANISOCYTOSIS PRESENCE IN BLOOD BY LIGHT MICROSCOPY Slight Abnormal (none) [facility] Comment on above: Performed By: #### L [id number], [id number] ####Ethyl Blender: UNA ARCE ([phone])[facility] BAND NEUTROPHILS TOTAL PER COUNTED LEUKOCYTES BY MANUAL COUNT 2 Normal [facility] Comment on above: Performed By: #### L [id number], [id number] ####Ethyl Blender: UNA ARCE ([phone])[facility] ([facility] BANDS (10*3/UL) IN BLOOD-CELLAVISION 0.2 10*3/uL High <=0.0 [facility] Comment on above: Performed By: #### L [id number], [id number] ####Ethyl Blender: UNA STAUFFERMELANIE ([phone])[facility] [place] (SBHLAB)[address] [place] [address] [place] BASOPHILS (10*3/UL) IN BLOOD-CELLAVISION 0.5 10*3/uL High 0.0-0.[address] [facility] Comment on above: Performed By: #### L [id number], [id number] ####Ethyl Blender: UNA ARCE ([phone])[facility] [place] ([facility])[address] [place] [address] [place] BASOPHILS TOTAL PER COUNTED LEUKOCYTES BY MANUAL COUNT 4 Normal [facility] Comment on above: Performed By: #### L [id number], [id number] ####Ethyl Blender: UNA ARCE ([phone])[facility] [place] ([facility])[address] [place] [address] [place] BASOPHILS/100 LEUKOCYTES IN BLOOD-CELLAVISION 4 % High 0-2 [facility] Comment on above: Performed By: #### L [id number], [id number] ####Ethyl Blender: UNA ARCE ([phone])[facility] [place] ([facility])[address] [place] [address] [place] BLASTS TOTAL PER COUNTED LEUKOCYTES BY MANUAL COUNT [facility] Comment on above: Performed By: #### L [id number], [id number] ####Ethyl Blender: UNA ARCE ([phone])[facility] [place] ([facility])[address] [place] [address] [place] EOSINOPHILS (10*3/UL) IN BLOOD-CELLAVISION 0.5 10*3/uL Normal 0.0-0.[address] [facility] Comment on above: Performed By: #### L [id number], [id number] ####Ethyl Blender: UNA ARCE ([id number])[facility] [place] ([facility])[address] [place] [address] [place] EOSINOPHILS TOTAL PER COUNTED LEUKOCYTES BY MANUAL COUNT 4 High 0-[address] [facility] Comment on above: Performed By: #### L [id number], [id number] ####Ethyl Blender: UNA ARCE ([id number])[facility] [place] ([facility])[address] [place] [address] [place] EOSINOPHILS/100 LEUKOCYTES IN BLOOD-CELLAVISION 4 % Normal 0-[address] [facility] Comment on above: Performed By: #### L [id number], [id number] ####Ethyl Blender: UNA ARCE ([phone])[facility] [place] ([facility])[address] [place] [address] [place] LYMPHOCYTES (10*3/UL) IN BLOOD-CELLAVISION 0.9 10*3/uL Low 1.0-4.[address] [facility] Comment on above: Performed By: #### L [id number], [id number] ####Ethyl Blender: UNA ARCE ([phone])[facility] [place] ([facility])[address] [place] [address] [place] LYMPHOCYTES TOTAL PER COUNTED LEUKOCYTES BY MANUAL COUNT [address] [facility] Comment on above: Performed By: #### L [id number], [id number] ####Ethyl Blender: UNA ARCE ([phone])[facility] [place] ([facility])[address] [place] [address] [place] LYMPHOCYTES/100 LEUKOCYTES IN BLOOD-CELLAVISION 7 % Low 15-[address] [facility] Comment on above: Performed By: #### L [id number], [id number] ####Ethyl Blender: UNA ARCE ([id number])[facility] [place] ([facility])[address] [place] [address] [place] METAMYELOCYTES TOTAL PER COUNTED LEUKOCYTES BY MANUAL COUNT Normal [facility] Comment on above: Performed By: #### L [id number], [id number] ####Ethyl Blender: UNA ARCE ([phone])[facility] [place] ([facility])[address] [place] [address] [place] MONOCYTES (10*3/UL) IN BLOOD-CELLAVISION 0.5 10*3/uL Normal 0.0-0.[address] [facility] Comment on above: Performed By: #### L [id number], [id number] ####Ethyl Blender: UNA ARCE ([phone])[facility] [place] ([facility])[address] [place] [address] [place] MONOCYTES TOTAL PER COUNTED LEUKOCYTES BY MANUAL COUNT [address] [facility] Comment on above: Performed By: #### L [id number], [id number] ####Ethyl Blender: UNA MOHRCER ([id number])[facility] [place] ([facility])[address] [place] [address] [place] MONOCYTES/100 LEUKOCYTES IN BLOOD-LUCIANA 4 % Low 5-[address] [facility] Comment on above: Performed By: #### L [id number], [id number] ####Ethyl Blender: UNA MOHRCER ([phone])[facility] [place] ([facility])[address] [place] [address] [place] MYELOCYTES (10*3/UL) IN BLOOD-CELLAVISION 0.1 10*3/uL High <=0.[address] [facility] Comment on above: Performed By: #### L [id number], [id number] ####Ethyl Blender: UNA ARCE ([id number])[facility] [place] ([facility])[address] [place] [address] [place] MYELOCYTES COUNTED BY MANUAL COUNT [address] [facility] Comment on above: Performed By: #### L [id number], [id number] ####Ethyl Blender: UNA MOHRCER ([id number])[facility] [place] ([facility])[address] [place] [address] [place] MYELOCYTES/100 LEUKOCYTES IN BLOOD-CELLAVISION 1 % High <=[address] [facility] Comment on above: Performed By: #### L [id number], [id number] ####Ethyl Blender: UNA MOHRCER ([id number])[facility] [place] ([facility])[address] [place] [address] [place] NEUTROPHILS BAND FORM/100 LEUKOCYTES IN BLOOD-CELLAVISI 2 % High <=0 [facility] Comment on above: Performed By: #### L [id number], [id number] ####Ethyl Blender: NUA ARCE ([phone])[facility] [place] ([facility])[address] NEUTROPHILS TOTAL PER COUNTED LEUKOCYTES BY MANUAL COUNT 79 Normal [facility] Comment on above: Performed By: #### L [id number], [id number] ####Ethyl Blender: UNA ARCE ([phone])[facility] [place] ([facility])[address] POIKILOCYTOSIS (PRESENCE) IN BLOOD BY LIGHT MICROSCOPY Slight Abnormal (none) [facility] Comment on above: Performed By: #### L [id number], [id number] ####Ethyl Blender: UNA ARCE ([phone])[facility] [place] ([facility])[address] PROMYELOCYTES TOTAL PER COUNTED LEUKOCYTES BY MANUAL COUNT Normal [facility] Comment on above: Performed By: #### L [id number], [id number] ####Ethyl Blender: UNA ARCE ([id number])[facility] [place] ([facility])[address] [place] [address] [place] RBC MORPHOLOGY IN BLOOD abnormal Normal S [facility] Comment on above: Performed By: #### L [id number], [id number] ####Ethyl Blender: UNA ARCE ([phone])[facility] [place] ([facility])[address] [place] [address] [place] SEGMENTED NEUTROPHILS (10*3/UL) IN BLOOD-CELLAVISION 9.9 10*3/uL High 1.8-7.5 [facility] Comment on above: Performed By: #### L [id number], [id number] ####Ethyl Blender: UNA ARCE ([id number])[facility] [place] ([facility])[address] [place] [address] [place] SEGMENTED NEUTROPHILS/100 LEUKOCYTES-CE 78 % Normal 38-[address] [facility] Comment on above: Performed By: #### L [id number], [id number] ####Ethyl Blender: UNA ARCE ([id number])[facility] [employer] [facility] [employer] [facility] ([facility])[address] STOMATOCYTES IN BLOOD BY LIGHT MICROSCOPY Moderate Abnormal (none) [facility] Comment on above: Performed By: #### L [id number], [id number] ####Ethyl Blender: UNA ARCE ([phone])[facility] [place] (SB[facility]AB)[address] UNCLASSIFIED CELLS TOTAL PER COUNTED LEUKOCYTES BY MANUAL COUNT Normal [facility] Comment on above: Performed By: #### L [id number], [id number] ####Ethyl Blender: UNA ARCE ([phone])[facility] (SB[facility])[address] VARIANT LYMPHOCYTES TOTAL PER COUNTED LEUKOCYTES BY MANUAL COUNT Normal [facility] Comment on above: Performed By: #### L [id number], [id number] ####Ethyl Blender: UNA ARCE ([phone])[facility] (SBHLAB)[address] Magnesium [Mass/Vol]on 04-10 [facility] No Panel Informationon 04-10 Bands Manual 2 [facility] Basophils Manual 4 [facility] Eosinophils Manual 4 High 0 - 1 [facility] Interpretation and review of laboratory results Abnormal [facility] Lymphocytes Manual 7 [facility] Monocytes Manual 4 [facility] Myelocytes Manual 1 [facility] Neutrophils Manual 79 [facility] Interpretation and review of laboratory results Normal [facility] PHOSPHORUSon 04-10-2025 Phosphate [Mass/Vol] 2.6 mg/dL Normal 2.3-4.7 [facility] Comment on above: Performed By: #### L AB113, LAB17, QUO023 ####Ethyl Blender: UNA ARCE ([phone])[facility] (SBHLAB)[address] Phosphate [Moles/Vol]on Phosphate [Mass/Vol] 2.6 mg/dL 2.3 - 4 .7 mg/dL [facility] Progress Noteon 04-10-2025 Progress Note Normal [facility] Progress Note [facility] Progress Note Normal [facility] Progress Note Will assume care as patient is being transferred out of ICU. D/w Dr Torres via secure chat Normal [facility] Progress Note Normal [facility] Progress Note Normal [facility] [id number] 04-09-2025 [id number] Normal [facility] [id number] Normal [facility] BODY FLUID CELL COUNT WITH R EFLEX DIFFon 04-09-2025 RBC, BODY FLUID (AUTOMATED) <0.002 High 0.000 [facility] Comment on above: Performed By: #### L [id number], LIH066 ####Ethyl Blender: UNA ARCE ([phone])[facility] (SBHLAB)[address] [place] [address] TYPE OF BODY FLUID Pleural Fluid Normal [facility] Comment on above: Performed By: #### L [id number], [id number] ####Ethyl Blender: UNA ARCE ([phone])[facility] (SBHLAB)[address] [place] [address] Result Comment: YARELI [place] COMMENTS:This test was developed and its performance characteristics determined by [employer]. It has not been cleared or approved by the US Food and Drug Administration. This test was performed in a CLIA certified laboratory and is intended for clinical purposes. Performed By: #### L AB188, DNU349, AZT774, AZW700 ####Ethyl Blender: ANAHY AVILA ([phone])[facility] ([facility])[address] [place] [address] Result Comment: YARELI [place] COMMENTS:This test was developed and its performance characteristics determined by [employer]. It has not been cleared or approved [...] developed and its performance characteristics determined by [employer]. It has not been cleared or approved by the US Food and Drug Administration. This test was performed in a CLIA certified laboratory and is intended for clinical purposes.Pleural wymbl-ks-jhssz protein ratio of >0.5 is one of Light???s criteria for an exudate. Heart failure associated misclassifications (by Light???s criteria) may be differentiated as transudative effusions by subsequently evaluating a gojmq-ae-kdsmuui albumin gradient (>1.2 g/dL) and/or a gyqxe-fg-ptutm protein gradient (>3.1 g/dL). Result Comment: YARELI [place] COMMENTS:This test was developed and its performance characteristics determined by [employer]. It has not been cleared or approved by the US Food and Drug Administration. This test was performed in a CLIA certified laboratory and is intended for clinical purposes.Exudates are defined as meeting one of the following criteria: (a) Pleural wdsme-dy-fpizs protein ratio of >0.5, (b) pleural lfhws-ve-cgvzp LDH ratio of >0.6, or (c)a pleural fluid LDH activity that is >2/3 the upper limit of a normal serum LDH activity (Light???s criteria). WBC, BODY FLUID (AUTOMATED) 0.341 x10*3/ul High <=0.005 [facility] Comment on above: Performed By: #### L [id number], GJW535 ####Ethyl Blender: UNA ARCE ([phone])[facility] ([facility])[address] [place] [address] RBC, BODY FLUID (AUTOMATED) <0.002 High 0.000 [facility] Comment on above: Performed By: #### L [id number], PYH895 ####Ethyl Blender: UNA ARCE ([phone])[facility] (SBHLAB)[address] TYPE OF BODY FLUID Pleural Fluid Normal [facility] Comment on above: Performed By: #### L [id number], SCL496 ####Ethyl Blender: UNA ARCE ([phone])[facility] (SBHLAB)[address] [place] [address] Result Comment: YARELI [place] COMMENTS:This test was developed and its performance characteristics determined by [employer]. It has not been cleared or approved by the US Food and Drug Administration. This test was performed in a CLIA certified laboratory and is intended for clinical purposes.Exudates are defined as meeting one of the following criteria: (a) Pleural ltvyj-ac-iniro protein ratio of >0.5, (b) pleural uuuwm-bc-wstyf LDH ratio of >0.6, or (c)a pleural fluid LDH activity that is >2/3 the upper limit of a normal serum LDH activity (Light???s criteria). Performed By: #### L AB196, MUD692, YRX338, MWV716 ####Ethyl Blender: ANAHY AVILA ([phone])[facility] ([facility])[address] [place] [address] Result Comment: YARELI [place] COMMENTS:This test was developed and its performance characteristics determined by [employer]. It has not been cleared or approved [...] developed and its performance characteristics determined by [employer]. It has not been cleared or approved by the US Food and Drug Administration. This test was performed in a CLIA certified laboratory and is intended for clinical purposes.Pleural mwmqv-hy-ffkrb protein ratio of >0.5 is one of Light???s criteria for an exudate. Heart failure associated misclassifications (by Light???s criteria) may be differentiated as transudative effusions by subsequently evaluating a qqpow-cy-ltkyfcg albumin gradient (>1.2 g/dL) and/or a miygk-uf-ijmqz protein gradient (>3.1 g/dL). Result Comment: YARELI [place] COMMENTS:This test was developed and its performance characteristics determined by [facility]. It has not been cleared or approved by the US Food and Drug Administration. This test was performed in a CLIA certified laboratory and is intended for clinical purposes. WBC, BODY FLUID (AUTOMATED) 0.112 x10*3/ul High <=0.005 [facility] Comment on above: Performed By: #### L [id number], LWF016 ####Ethyl Blender: UNA ARCE ([phone])[facility] [place] (SBHLAB)[address] BODY FLUID DIFFERENTIALon CELLS COUNTED TOTAL (#) IN BODY FLUID 100 Normal [facility] Comment on above: Performed By: #### L [id number], BOH319 ####Ethyl Blender: UNA ARCE ([id number])[facility] [place] (SBHLAB)[address] [place] [address] [place] LYMPHOCYTES/100 LEUKOCYTES IN BODY FLUID BY MAN CT 51 % Normal [facility] Comment on above: Performed By: #### L LD8787, NUY877 ####Ethyl Blender: UNA ARCE ([id number])[facility] [place] (SBHLAB)[address] [place] [address] [place] MONOCYTES+MACROPHAGES/10 0 WBC IN BODY FLUID BY MAN CT 36 % Normal [facility] Comment on above: Performed By: #### L DO7365, NZC657 ####Ethyl Blender: UNA ARCE ([id number])[facility] [place] (SBHLAB)[address] [place] [address] [place] Neutrophils/100 WBC (Bld) 13 % Normal [facility] Comment on above: Performed By: #### L OI0698, GLK852 ####Ethyl Blender: UNA ARCE ([phone])[facility] [place] (SBHLAB)[address] CELLS COUNTED TOTAL (#) IN BODY FLUID [address] [facility] Comment on above: Performed By: #### L QV5072, TYE164 ####Ethyl Blender: UNA ARCE ([phone])[facility] [place] (SBHLAB)[address] LYMPHOCYTES/100 LEUKOCYTES IN BODY FLUID BY MAN CT 31 % Normal [facility] Comment on above: Performed By: #### L [id number], PUO285 ####Ethyl Blender: UNA ARCE ([phone])[facility] [place] (SBHLAB)[address] [place] [address] [place] MESOTHELIAL CELLS/100 LEUKOCYTES IN BODY FLUID BY MANUAL COUNT 2 % Normal [facility] Comment on above: Performed By: #### L YH6710, ZCN451 ####Ethyl Blender: UNA ARCE ([id number])[facility] [place] (SBHLAB)[address] MONOCYTES+MACROPHAGES/10 0 WBC IN BODY FLUID BY MAN CT 37 % Normal [facility] Comment on above: Performed By: #### L UL9973, LKQ310 ####Ethyl Blender: UNA ARCE ([id number])[facility] [place] (SBHLAB)[address] Neutrophils/100 WBC (Bld) 30 % Normal [facility] Comment on above: Performed By: #### L [id number], JEM198 ####Ethyl Blender: UNA ARCE ([id number])[facility] [place] (SBHLAB)[address] [place] [address] [place] CBC W Auto Differential pane l (Bld)Ordered By: Jg Sarabia on 04-09-2025 Erythrocyte distribution width (RBC) [Ratio] 21.8 % High 11.5 - 15.0 % [facility] Hematocrit (Bld) [Volume fraction] 27.7 % Low 40.0 - 52.0 % [facility] Hemoglobin (Bld) [Mass/Vol] 7.5 g/dL Low 13.0 - 18.0 g/dL [facility] MCH (RBC) [Entitic mass] 22.6 pg Low 26. 0 - 34.0 pg [facility] MCHC (RBC) [Mass/Vol] 27.1 % Low 30.5 - 36.0 % [facility] MCV (RBC) [Entitic vol] 83.4 fL 77.0 - 99.0 fL [facility] Platelet mean volume (Bld) [Entitic vol] 9.4 fL 9.0 - 12.7 fL [facility] Platelets (Bld) [#/Vol] 279 10*3/uL 140 - 440 10*3/uL [facility] RBC (Bld) [#/Vol] 3.32 10*6/uL Low 4.40 - 5.9 0 10*6/uL [facility] WBC (Bld) [#/Vol] 11.2 10*3/uL High 3.6 - 10.7 10*3/uL [facility] CBC WITH AUTO DIFFERENTIALon 04-09-2025 Erythrocyte distribution width (RBC) [Ratio] 21.8 % High 11.5-15.0 [facility] Comment on above: Performed By: #### L [id number], [id number] ####Ethyl Blender: UNA ARCE ([phone])[facility] ([facility])[address] [place] [address] Hematocrit (Bld) [Volume fraction] 27.7 % Low 40.0-52.0 [facility] Comment on above: Performed By: #### L [id number], [id number] ####Ethyl Blender: UNA ACRE ([phone])[facility] ([facility] [place] [address] Hemoglobin (Bld) [Mass/Vol] 7.5 g/dL Low 13.0-18.0 [facility] Comment on above: Performed By: #### L [id number], [id number] ####Ethyl Blender: UNA ARCE ([phone])[facility] ([facility] [place] [address] MCH (RBC) [Entitic mass] 22.6 pg Low 26.0-34.0 [facility] Comment on above: Performed By: #### L [id number], [id number] ####Ethyl Blender: UNA ARCE ([id number])[facility]NETTE SANCHEZCHRISTINAN (SBHLAB)[address] MCHC 27.1 % Low 30.5-36.0 [facility] Comment on above: Performed By: #### L [id number], [id number] ####Ethyl Blender: UNA ARCE ([phone])[facility] [place] (SBHLAB)[address] MCV (RBC) [Entitic vol] 83.4 fL Normal 77.0-99.0 S [facility] Comment on above: Performed By: #### L [id number], [id number] ####Ethyl Blender: UNA ARCE ([phone])[facility] SANCHEZCHRISTINAN (SBHLAB)[address] Platelet mean volume (Bld) [Entitic vol] 9.4 fL Normal 9.0-12.7 [facility] Comment on above: Performed By: #### L [id number], [id number] ####Ethyl Blender: UNA ARCE ([id number])[facility] [place] (SBHLAB)[address] Platelets (Bld) [#/Vol] 279 10*3/uL Normal 140-440 [facility] Comment on above: Performed By: #### L [id number], [id number] ####Ethyl Blender: UNA ARCE ([id number])[facility] [place] (SBHLAB)[address] [place] [address] [place] RBC (Bld) [#/Vol] 3.32 10*6/uL Low 4.40-5.90 [facility] Comment on above: Performed By: #### L [id number], [id number] ####Ethyl Blender: UNA ARCE ([id number])[facility]NET[facility] (SBHLAB)[address] WBC (Bld) [#/Vol] 11.2 10*3/uL High 3.6-10.[address] [facility] Comment on above: Performed By: #### L [id number], [id number] ####Ethyl Blender: UNA ARCE ([phone])[facility]ITAL[facility] (SBHLAB)[address] COMPREHENSIVE METABOLIC PANE Anant 04-09-2025 Albumin [Mass/Vol] 2.2 g/dL Low 3.4-4.8 [facility] Comment on above: Performed By: #### L AB103, UTP589, LAB17 ####Ethyl Blender: UNA ARCE ([phone])[facility] [place] (SBHLAB)[address] ALP [Catalytic activity/Vol] 56 U/L Normal 40-[address] [facility] Comment on above: Performed By: #### L AB103, MST694, LAB17 ####Ethyl Blender: UNA ARCE ([id number])[facility] (SBHLAB)[address] ALT [Catalytic activity/Vol] U/L Normal <40 [facility] Comment on above: Performed By: #### L AB103, ELO231, LAB17 ####Ethyl Blender: UNA ARCE ([phone])[facility] (SBHLAB)[address] Anion gap [Moles/Vol] 10 mmol/L Normal 3-13 [facility] Comment on above: Performed By: #### L AB103, UCT594, LAB17 ####Ethyl Blender: UNA ARCE ([id number])[facility] (SBHLAB)[address] AST [Catalytic activity/Vol] 18 U/L Normal <[address] [facility] Comment on above: Performed By: #### L AB103, DAO419, LAB17 ####Ethyl Blender: UNA ARCE ([phone])[facility] BASHIRN (SBHLAB)[address] Bilirubin [Mass/Vol] 0.7 mg/dL Normal <1.2 [facility] Comment on above: Performed By: #### L AB103, EGN790, LAB17 ####Ethyl Blender: UNA BERMUDEZPEDRO ([phone])[facility]OSPITALN (SBHLAB)[address] Calcium [Mass/Vol] 8.1 mg/dL Low 8.8-10.0 [facility] Comment on above: Performed By: #### L AB103, TGB662, LAB17 ####Ethyl Blender: UNA STAUFFERMELANIE ([phone])[facility] BASHIRN (SBHLAB)[address] Chloride [Moles/Vol] 98 mmol/L Normal 98-107 [facility] Comment on above: Performed By: #### L AB103, RYR484, LAB17 ####Ethyl Blender: UNA ARCE ([phone])[facility] BASHIRN (SBHLAB)[address] CO2 [Moles/Vol] 34 mmol/L High 23-31 [facility] Comment on above: Performed By: #### L AB103, ITJ888, LAB17 ####Ethyl Blender: UNA ARCE ([phone])[facility] BASHIRN (SBHLAB)[address] Creatinine [Mass/Vol] 1.53 mg/dL High 0.72-1.25 [facility] Comment on above: Performed By: #### L AB103, LEM963, LAB17 ####Ethyl Blender: UNA STAUFFERMELANIE ([phone])[facility] BASHIRN (SBHLAB)[address] GLOMERULAR FILTRATION RATE ML/MIN/1.73 SQ M.PREDICTED 43.2 mL/min/1.73m*2 Low >60.0 [facility] Comment on above: Result Comment: Calc ulation based on the Chronic Kidney Disease Epidemiology Collaboration (CKD-EPI) equation refit without adjustment for race Performed By: #### L AB103, NOH568, LAB17 ####Ethyl Blender: UNA ARCE ([phone])[facility] (SBHLAB)[address] Glucose [Mass/Vol] 90 mg/dL Normal 82-115 [facility] Comment on above: Performed By: #### L AB103, NAQ435, LAB17 ####Ethyl Blender: UNA ARCE ([phone])[facility] (SBHLAB)[address] Potassium [Moles/Vol] 3.5 mmol/L Normal 3.5-5.1 [facility] Comment on above: Result Comment: [facility] potassium values may be up to 0.5 mmol/L lower than serum values. Performed By: #### Gilbert ABLilly, SNZ543, LAB17 ####Ethyl Blender: UNA ARCE ([phone])[facility] (SBHLAB)[address] Protein [Mass/Vol] 5.7 g/dL Low 6.4-8.3 [facility] Comment on above: Performed By: #### L AB103, HWB945, LAB17 ####Ethyl Blender: UNA ARCE ([id number])[facility] (SBHLAB)[address] [place] [address] [place] Sodium [Moles/Vol] 142 mmol/L Normal 136-145 [facility] Comment on above: Performed By: #### L AB103, QAZ764, LAB17 ####Ethyl Blender: UNA ARCE ([id number])[facility] (SBHLAB)[address] Urea nitrogen [Mass/Vol] 25 mg/dL High 9-23 [facility] Comment on above: Performed By: #### L AB103, WLC810, LAB17 ####Ethyl Blender: UNA ARCE ([phone])[facility] [place] (SBHLAB)[address] CULTURE ANAEROBICon 04-09-20 C[facility]URE [facility]OBIC [facility] Comment on above: Performed By: #### L AB233 ####Ethyl Blender: ANAHY AVILA ([id number])[facility] ([facility])[address] [place] [address] CULTURE ANAEROBIC Normal [facility] Comment on above: Performed By: #### L AB233 ####Ethyl Blender: ANAHY AVILA ([phone])[facility] ([facility])[address] [place] [address] CULTURE, AEROBIC BACTERIA WI TH GRAM STAINon 04-09-2025 CULTURE, AEROBIC BACTERIA WITH GRAM STAIN Normal [facility] Comment on above: Performed By: #### L AB897 ####Ethyl Blender: ANAHY AVILA ([phone])[facility] ([facility])[address] [place] [address] CULTURE, AEROBIC BACTERIA WITH GRAM STAIN Normal [facility] Comment on above: Performed By: #### L AB897 ####Ethyl Blender: ANAHY AVILA ([phone])[facility] ([facility])[address] [place] [address] Comprehensive metabolic 1998 panelon 04-09-2025 Albumin [Mass/Vol] 2.2 g/dL Low 3.4 - 4.8 g/dL [facility] ALP [Catalytic activity/Vol] 56 U/L 40 - 150 U/L [facility] ALT [Catalytic activity/Vol] U/L NINF - 40 U/L [facility] Anion gap [Moles/Vol] 10 mmol/L 3 - 13 mmol/L [facility] AST [Catalytic activity/Vol] 18 U/L NINF - 34 U/L [facility] Bilirubin [Mass/Vol] 0.7 mg/dL NINF - 1.2 mg/dL [facility] Calcium [Mass/Vol] 8.1 mg/dL Low 8.8 - 10. 0 mg/dL [facility] Chloride [Moles/Vol] 98 mmol/L 98 - 10 7 mmol/L [facility] CO2 [Moles/Vol] 34 mmol/L High 23 - 31 mmol/L [facility] Creatinine [Mass/Vol] 1.53 mg/dL High 0.72 - 1.25 mg/dL [facility] GFR/1.73 sq M.predicted (S/P/Bld) [Vol rate/Area] 43.2 mL/min Low - PINF [facility] Glucose [Mass/Vol] 90 mg/dL 82 - 115 mg/dL [facility] Interpretation and review of laboratory results Abnormal [facility] Potassium [Moles/Vol] 3.5 mmol/L 3.5 - 5.1 mmol/L [facility] Protein [Mass/Vol] 5.7 g/dL Low 6.4 - 8.3 g/dL [facility] Sodium [Moles/Vol] 142 mmol/L 136 - 145 mmol/L [facility] Urea nitrogen [Mass/Vol] 25 mg/dL High 9 - 23 mg/d L [facility] Consulton 04-09-[address] [facility] GLUCOSE, BODY FLUIDon 2024 GLUCOSE, BODY FLUID 132 mg/dL Normal [facility] Comment on above: Performed By: #### L AB188, ZPO248, QZJ512, VGK472 ####Ethyl Blender: ANAHY AVILA ([phone])[facility] [place] [address] GLUCOSE, BODY FLUID 92 mg/dL Normal [facility] Comment on above: Performed By: #### L AB196, SQV035, WHJ814, PHI193 ####Ethyl Blender: ANAHY AVILA ([phone])[facility])[address] [place] [address] [place] LACTATE DEHYDROGENASEon 08-0 LDH [Catalytic activity/Vol] 181 U/L Normal 125-220 [facility] Comment on above: Performed By: #### L AB118, LAB96 ####Ethyl Blender: UNA ARCE ([phone])[facility] (SBHLAB)[address] [place] [address] [place] LACTATE DEHYDROGENASE, BODY FLUIDon 04-09-2025 LACTATE DEHYDROGENASE, BODY FLUID BY LAC->PYR 95 U/L Normal [facility] Comment on above: Performed By: #### L AB188, SUQ296, IFU669, BUZ707 ####Ethyl Blender: ANAHY AVILA ([phone])[facility] ([facility])[address] [place] [address] LACTATE DEHYDROGENASE, BODY FLUID BY LAC->PYR 95 U/L Normal [facility] Comment on above: Performed By: #### L AB196, FRU973, CYY620, FDW147 ####Ethyl Blender: ANAHY AVILA ([phone])[facility] ([facility])[address] [place] [address] LDH Lactate to pyruvate reac tion [Catalytic activity/Vol]on 04-09-2025 Interpretation and review of laboratory results Normal [facility] Laboratoryon 04-09-2025 Fluid Nom (Body fld) Pleural Fluid S [facility] Fluid Nom (Body fld) Pleural Fluid S [facility] Fluid Nom (Body fld) Pleural Fluid S [facility] Fluid Nom (Body fld) Pleural Fluid S [facility] Fluid Nom (Body fld) Pleural Fluid S [facility] Fluid Nom (Body fld) Pleural Fluid S [facility] Fluid Nom (Body fld) Pleural Fluid S [facility] LaboratoryOrdered By: Anne cadena on 04-09-2025 Fluid Nom (Body fld) Pleural Fluid [facility] LaboratoryOrdered By: Rian Spann on 04-09-2025 Fluid Nom (Body fld) Pleural Fluid S [facility] - Chemistry and C hemistry - challengeon 04-09-2025 LDH (Body fld) [Catalytic activity/Vol] 95 U/L [facility] ealth Glucose (Body fld) [Mass/Vol] 132 mg/dL [facility] Protein (Body fld) [Mass/Vol] 2.3 g/dL [facility] pH (Body fld) 7.747 [pH] [facility] pH (Body fld) 7.688 [pH] [facility] Protein (Body fld) [Mass/Vol] 2.5 g/dL [facility] Glucose (Body fld) [Mass/Vol] 92 mg/dL [facility] LDH Lactate to pyruvate reaction [Catalytic activity/Vol] 181 U/L 125 - 220 U/L [facility] Protein [Mass/Vol] 5.9 g/dL Low 6.4 - 8.3 g/dL [facility] Magnesium [Mass/Vol] 1.7 mg/dL 1.6 - 2 .6 mg/dL [facility] Laboratory - Chemistry and C hemistry - challengeOrdered By: Anne Miles on 04-09-2025 LDH (Body fld) [Catalytic activity/Vol] 95 U/L [facility] Laboratory - Hematology and Cell countson 04-09-2025 Cells Counted Total (Body fld) [#] 100 [facility] Lymphocytes/100 WBC (Bld) 51 % [facility] Macrophages/100 WBC Manual cnt (Body fld) 36 % [facility] Neutrophils/100 WBC (Body fld) 13 % [facility] RBC Auto (Body fld) [#/Vol] High [facility] WBC (Body fld) [#/Vol] 0.341 10*3/uL High NINF [facility] Cells Counted Total (Body fld) [#] 100 [facility] Lymphocytes/100 WBC (Bld) 31 % [facility] Macrophages/100 WBC Manual cnt (Body fld) 37 % [facility] Mesothelial cells/100 WBC Manual cnt (Body fld) 2 % [facility] Neutrophils/100 WBC (Body fld) 30 % [facility] Anisocytosis Ql (Bld) Moderate Abnormal (none) [facility] Eosinophils (Bld) [#/Vol] 0.6 10*3/uL High 0.0 - 0.5 10*3/uL [facility] Eosinophils/100 WBC (Bld) 5 % 0 - 6 % [facility] Hypochromia Ql (Bld) Moderate Abnormal (none) [facility] Lymphocytes (Bld) [#/Vol] 0.8 10*3/uL Low 1.0 - 4.3 10*3/uL [facility] Lymphocytes/100 WBC (Bld) 7 % Low 15 - 45 % [facility] Monocytes (Bld) [#/Vol] 2 10*3/uL High 0.0 - 0.9 10*3/uL [facility] Monocytes/100 WBC (Bld) 18 % High 5 - 13 % [facility] Neutrophils (Bld) [#/Vol] 8 10*3/uL High 1.8 - 7.5 10*3/uL [facility] Poikilocytosis LM Ql (Bld) Slight Abnormal (none) [facility] Polychromasia LM Ql (Bld) Slight Abnormal (none) [facility] RBC morphology finding Nom (Bld) abnormal [facility] Segmented neutrophils/100 WBC (Bld) 71 % 38 - 82 % [facility] Stomatocytes LM Ql (Bld) Moderate Abnormal (none) [facility] Laboratory - Hematology and Cell countsOrdered By: Kyara Valles on 04-09-2025 RBC Auto (Body fld) [#/Vol] High [facility] WBC (Body fld) [#/Vol] 0.112 10*3/uL High NINF [facility] MAGNESIUMon 04-09-2025 Magnesium [Mass/Vol] 1.7 mg/dL Normal 1.6-2.6 [facility] Comment on above: Result Comment: YARELI [place] COMMENTS:Higher values can be expected in females during menses. Performed By: #### L [id number], [id number], [id number] ####Ethyl Blender: UNA ARCE ([phone])[facility] ([facility])[address] [place] [address] MANUAL DIFFERENTIAL (CELLAVI BANDAR)on 04-09-2025 ANISOCYTOSIS PRESENCE IN BLOOD BY LIGHT MICROSCOPY Moderate Abnormal (none) [facility] Comment on above: Performed By: #### L [id number], [id number] ####Ethyl Blender: UNA ARCE ([phone])[facility] ([facility])[address] [place] [address] BAND NEUTROPHILS TOTAL PER COUNTED LEUKOCYTES BY MANUAL COUNT Normal [facility] Comment on above: Performed By: #### L [id number], [id number] ####Ethyl Blender: UNA ARCE ([phone])[facility] ([facility])[address] BASOPHILS TOTAL PER COUNTED LEUKOCYTES BY MANUAL COUNT Normal [facility] Comment on above: Performed By: #### L [id number], [id number] ####Ethyl Blender: UNA STAUFFERMELANIE ([phone])[facility] ([facility])[address] [place] [address] [place] BLASTS TOTAL PER COUNTED LEUKOCYTES BY MANUAL COUNT Normal [facility] Comment on above: Performed By: #### L [id number], [id number] ####Ethyl Blender: UNA BERMUDEZPEDRO ([phone])[facility] [place] ([facility])[address] [place] [address] [place] EOSINOPHILS (10*3/UL) IN BLOOD-CELLAVISION 0.6 10*3/uL High 0.0-0.[address] [facility] Comment on above: Performed By: #### L [id number], [id number] ####Ethyl Blender: UNA BERMUDEZPEDRO ([phone])[facility] [place] ([facility])[address] [place] [address] [place] EOSINOPHILS TOTAL PER COUNTED LEUKOCYTES BY MANUAL COUNT 5 High 0-[address] [facility] Comment on above: Performed By: #### L [id number], [id number] ####Ethyl Blender: UNA ARCE ([phone])[facility] [place] ([facility])[address] [place] [address] [place] EOSINOPHILS/100 LEUKOCYTES IN BLOOD-CELLAVISION 5 % Normal 0-[address] [facility] Comment on above: Performed By: #### L [id number], [id number] ####Ethyl Blender: UNA ARCE ([id number])[facility] [place] ([facility])[address] [place] [address] [place] HYPOCHROMIA (PRESENCE) IN BLOOD BY LIGHT MICROSCOPY Moderate Abnormal (none) [facility] Comment on above: Performed By: #### L [id number], [id number] ####Ethyl Blender: UNA ARCE ([phone])[facility] [place] ([facility])[address] [place] [address] [place] LYMPHOCYTES (10*3/UL) IN BLOOD-CELLAVISION 0.8 10*3/uL Low 1.0-4.[address] [facility] Comment on above: Performed By: #### L [id number], [id number] ####Ethyl Blender: UNA BERMUDEZPEDRO ([phone])[facility] ([facility])[address] [place] [address] [place] LYMPHOCYTES TOTAL PER COUNTED LEUKOCYTES BY MANUAL COUNT 7 [facility] Comment on above: Performed By: #### L [id number], [id number] ####Ethyl Blender: UNA BERMUDEZPEDRO ([phone])[facility] [place] ([facility])[address] [place] [address] [place] LYMPHOCYTES/100 LEUKOCYTES IN BLOOD-CELLAVISION 7 % Low 15-[address] [facility] Comment on above: Performed By: #### L [id number], [id number] ####Ethyl Blender: UNA BERMUDEZPEDRO ([phone])[facility] [place] ([facility])[address] [place] [address] [place] METAMYELOCYTES TOTAL PER COUNTED LEUKOCYTES BY MANUAL COUNT [facility] Comment on above: Performed By: #### L [id number], [id number] ####Ethyl Blender: UNA BERMUDEZPEDRO ([phone])[facility] [place] ([facility])[address] [place] [address] [place] MONOCYTES (10*3/UL) IN BLOOD-CELLAVISION 2.0 10*3/uL High 0.0-0.9 [facility] Comment on above: Performed By: #### L [id number], [id number] ####Ethyl Blender: UNA STAUFFERMELANIE ([phone])[facility] [place] ([facility])[address] [place] [address] [place] MONOCYTES TOTAL PER COUNTED LEUKOCYTES BY MANUAL COUNT 19 Normal [facility] Comment on above: Performed By: #### L [id number], [id number] ####Ethyl Blender: UNA STAUFFERMELANIE ([phone])[facility] [place] ([facility])[address] [place] [address] [place] MONOCYTES/100 LEUKOCYTES IN BLOOD-LUCIANA 18 % High 5-[address] [facility] Comment on above: Performed By: #### L [id number], [id number] ####Ethyl Blender: UNA MOHRCER ([phone])[facility] ([facility])[address] MYELOCYTES COUNTED BY MANUAL COUNT [facility] Comment on above: Performed By: #### L [id number], [id number] ####Ethyl Blender: UNA MOHRCER ([phone])[facility] ([facility])[address] NEUTROPHILS TOTAL PER COUNTED LEUKOCYTES BY MANUAL COUNT [address] [place] [address] Comment on above: Performed By: #### L [id number], [id number] ####Ethyl Blender: UNA MOHRCER ([phone])[facility] [place] ([facility])[address] POIKILOCYTOSIS (PRESENCE) IN BLOOD BY LIGHT MICROSCOPY Slight Abnormal (none) [facility] Comment on above: Performed By: #### L [id number], [id number] ####Ethyl Blender: UNA ARCE ([id number])[facility] ([facility])[address] POLYCHROMASIA IN BLOOD BY LIGHT MICROSCOPY Slight Abnormal (none) [facility] Comment on above: Performed By: #### L [id number], [id number] ####Ethyl Blender: UNA ARCE ([phone])[facility] ([facility])[address] PROMYELOCYTES TOTAL PER COUNTED LEUKOCYTES BY MANUAL COUNT [facility] Comment on above: Performed By: #### L [id number], [id number] ####Ethyl Blender: UNA ARCE ([phone])[facility] [place] ([facility])[address] RBC MORPHOLOGY IN BLOOD abnormal Normal [facility] Comment on above: Performed By: #### L [id number], [id number] ####Ethyl Blender: UNA ARCE ([phone])[facility] [place] ([facility])[address] SEGMENTED NEUTROPHILS (10*3/UL) IN BLOOD-CELLAVISION 8.0 10*3/uL High 1.8-7.5 [facility] Comment on above: Performed By: #### L [id number], [id number] ####Ethyl Blender: UNA ARCE ([id number])[facility] [place] ([facility])[address] SEGMENTED NEUTROPHILS/100 LEUKOCYTES-CE 71 % Normal 38-82 [facility] Comment on above: Performed By: #### L [id number], [id number] ####Ethyl Blender: UNA ARCE ([phone])[facility] ([facility])[address] STOMATOCYTES IN BLOOD BY LIGHT MICROSCOPY Moderate Abnormal (none) [facility] Comment on above: Performed By: #### L [id number], [id number] ####Ethyl Blender: UNA ARCE ([phone])[facility] ([facility])[address] UNCLASSIFIED CELLS TOTAL PER COUNTED LEUKOCYTES BY MANUAL COUNT Normal [facility] Comment on above: Performed By: #### L [id number], [id number] ####Ethyl Blender: UNA ARCE ([phone])[facility] [employer] [facility] [facility] ([facility])[address] VARIANT LYMPHOCYTES TOTAL PER COUNTED LEUKOCYTES BY MANUAL COUNT Normal [facility] Comment on above: Performed By: #### L [id number], [id number] ####Ethyl Blender: UNA ARCE ([phone])[facility] [employer] [facility] [employer] [facility] [facility] [facility] [facility] ([facility])[address] [place] [address] [place] Magnesium [Mass/Vol]on 04-09 [facility] No Panel Informationon 04-09 [facility] Interpretation and review of laboratory results Abnormal [facility] Interpretation and review of laboratory results Abnormal [facility] Interpretation and review of laboratory results Normal [facility] Eosinophils Manual 5 High 0 - 1 [facility] Lymphocytes Manual 7 [facility] Monocytes Manual 19 [facility] Neutrophils Manual 77 [facility] No Panel InformationOrdered By: Anne Miles on 04-09-2025 [facility] No Panel InformationOrdered By: Kyara Valles on 04-09-2025 Interpretation and review of laboratory results Abnormal [facility] No Panel InformationOrdered By: Jg Sarabia on 04-09-2025 Interpretation and review of laboratory results Abnormal [facility] Nursing Noteon 04-09-2025 Nursing Note R thoracentesis complete pt tolerated well with minimal discomfort Normal [facility] Nursing Note L thoracentesis complete per Dr Torres. Pt tolerated well with minimal discomfort Normal [facility] PH, BODY FLUIDon 04-09-2025 pH (Body fld) 7.747 [pH] Normal [facility] Comment on above: Performed By: #### L [id number], [id number], [id number], [id number] ####Ethyl Blender: ANAHY AVILA ([phone])[facility] ([facility])[address] [place] [address] pH (Body fld) 7.688 [pH] Normal [facility] Comment on above: Performed By: #### L AB196, [id number], [id number], [id number] ####Ethyl Blender: ANAHY AVILA ([phone])[facility] ([facility])[address] [place] [address] [place] PHOSPHORUSon 04-09-2025 Phosphate [Mass/Vol] 3.5 mg/dL Normal 2.3-4.7 [facility] Comment on above: Performed By: #### L AB103, [id number], LAB17 ####Ethyl Blender: UNA ARCE ([phone])[facility] ([facility])[address] [place] [address] PROTEIN BODY FLUIDon 025 PROTEIN, BODY FLUID 2.3 g/dL Normal [facility] Comment on above: Performed By: #### L [id number], [id number], TEE101, [id number] ####Ethyl Blender: ANAHY AVILA ([phone])[facility])[address] [place] [address] [place] PROTEIN, BODY FLUID 2.5 g/dL Normal [facility] Comment on above: Performed By: #### L AB196, [id number], UDR397, [id number] ####Ethyl Blender: ANAHY AVILA ([phone])[facility] ([facility])[address] [place] [address] [place] Phosphate [Moles/Vol]on Phosphate [Mass/Vol] 3.5 mg/dL 2.3 - 4 .7 mg/dL [facility] Progress Noteon 04-09-2025 Progress Note [facility] Progress Note Normal [facility] Progress Note Normal [facility] TOTAL PROTEINon 04-09-2025 Protein [Mass/Vol] 5.9 g/dL Low 6.4-8.3 [facility] Comment on above: Result Comment: Seru m protein values are higher than plasma values. Samples from recumbent persons are lower by up to 0.5 g/dL as compared to ambulatory persons. After 60 years values are lower by up to 0.2 g/dL. Performed By: #### L AB118, LAB96 ####Ethyl Blender: UNA ARCE ([phone])[facility] ([facility] [place] [address] [facility] XR CHEST 1 VIEWon 04-09-2025 XR CHEST 1 VIEW Normal [facility] XR Chest Single viewon 04-09 [facility] RADIOLOGY SYSTEM [facility] Radiology Study observation (narrative) Lynette Balderrama alth [facility] RADIOLOGY SYSTEM [facility] Radiology Study observation (narrative) [facility] RADIOLOGY SYSTEM [facility] Radiology Study observation (narrative) [facility] alth XR Chest Single viewOrdered By: Gary Kay on 04-09-2025 [facility] Work Phone: XR Chest Single viewOrdered By: Sis Collins on 04-09-2025 [facility] Work Phone: XR Chest Single viewOrdered By: Kev Mattson on 04-09-2025 [facility] Work Phone: [phone] 04-08-2025 [id number] Attempted to insert garcía. Urojet injected. Unable to visualize meatus. Attempted x1 to insert garcía without success. Normal [facility] [id number] Normal [facility] [id number] 04-08-2025 [id number] Normal [facility] BLOOD GAS ARTERIALon 025 AMOUNT OF OXYGEN .40 Normal [facility] Comment on above: Performed By: #### L AB76 ####Ethyl Blender: UNA ARCE ([phone])[facility] ([facility])[address] [place] [address] Base excess Calc (Bld) [Moles/Vol] 11.2 mmol/L High -3.0-3.0 [facility] Comment on above: Performed By: #### L AB76 ####Ethyl Blender: UNA ARCE ([phone])[facility] ([facility])[address] [place] [address] CO2 [Moles/Vol] 41.2 mmol/L High 22.0-28.0 [facility] Comment on above: Performed By: #### L AB76 ####Ethyl Blender: UNA ARCE ([phone])[facility] ([facility])[address] [place] [address] HCO3 (Bld) [Moles/Vol] 38.9 mmol/L High 21.0-27.0 [facility] Comment on above: Performed By: #### L AB76 ####Ethyl Blender: UNA ARCE ([phone])[facility] ([facility])[address] Hemoglobin (Bld) [Mass/Vol] 8.4 g/dL Low Screen only [facility] Comment on above: Performed By: #### L AB76 ####Ethyl Blender: UNA ARCE ([phone])[facility] [place] ([facility])[address] OXYGEN SATURATION (%) IN ARTERIAL BLOOD 97.0 % Normal 97.0-99.[address] [facility] Comment on above: Performed By: #### L AB76 ####Ethyl Blender: UNA ARCE ([phone])[facility] [place] ([facility])[address] PCO2 ARTERIAL 75.1 mm Hg High 35.0-48.0 [facility] Comment on above: Performed By: #### L AB76 ####Ethyl Blender: UNA ARCE ([phone])[facility] [place] ([facility])[address] PH ARTERIAL 7.332 Low 7.350-7.[address] [facility] Comment on above: Performed By: #### L AB76 ####Ethyl Blender: UNA ARCE ([phone])[facility] [place] ([facility])[address] PO2 ARTERIAL 104.0 mm Hg Normal 83.0-108.0 [facility] Comment on above: Performed By: #### L AB76 ####Ethyl Blender: UNA ARCE ([phone])[facility] [place] ([facility])[address] SOURCE OF OXYGEN Non-Invasive Ventilator Normal [facility] Comment on above: Performed By: #### L AB76 ####Ethyl Blender: UNA ARCE ([phone])[facility] [place] ([facility])[address] [place] [address] [place] AMOUNT OF OXYGEN 4 liters Normal [facility] Comment on above: Performed By: #### L AB76 ####Ethyl Blender: UNA ARCE ([phone])[facility] [place] ([facility])[address] Base excess Calc (Bld) [Moles/Vol] 9.9 mmol/L High -3.0-3.0 [facility] Comment on above: Performed By: #### L AB76 ####Ethyl Blender: UNA ARCE ([phone])[facility] ([facility])[address] CO2 [Moles/Vol] 40.6 mmol/L High 22.0-28.0 [facility] Comment on above: Performed By: #### L AB76 ####Ethyl Blender: UNA ARCE ([phone])[facility] [place] ([facility])[address] HCO3 (Bld) [Moles/Vol] 38.2 mmol/L High 21.0-27.0 [facility] Comment on above: Performed By: #### L AB76 ####Ethyl Blender: UNA ARCE ([phone])[facility] ([facility])[address] Hemoglobin (Bld) [Mass/Vol] 8.6 g/dL Low Screen only [facility] Comment on above: Performed By: #### L AB76 ####Ethyl Blender: UNA ARCE ([phone])[facility] ([facility])[address] OXYGEN SATURATION (%) IN ARTERIAL BLOOD 96.1 % Low 97.0-99.[address] [facility] Comment on above: Performed By: #### L AB76 ####Ethyl Blender: UNA ARCE ([id number])[facility] ([facility])[address] PCO2 ARTERIAL 80.1 mm Hg Critically high 35.0-48.[address] [facility] Comment on above: Performed By: #### L AB76 ####Ethyl Blender: UNA STAUFFERMELANIE ([phone])[facility]ENTERAngel [facility]ITAL[facility] ([facility])[address] PH ARTERIAL 7.296 Low 7.350-7.450 [facility] Comment on above: Performed By: #### L AB76 ####Ethyl Blender: UNA STAUFFERMELANIE ([phone])[facility] ([facility])[address] PO2 ARTERIAL 92.0 mm Hg Normal 83.0-108.0 [facility] Comment on above: Performed By: #### L AB76 ####Ethyl Blender: UNA STAUFFERMELANIE ([phone])[facility]ENTERAngel [place] ([facility])[address] SOURCE OF OXYGEN Nasal Cannula (LPM) Normal [facility] Comment on above: Performed By: #### L AB76 ####Ethyl Blender: UNA STAUFFERMELANIE ([phone])[facility] ([facility])[address] CBC W Auto Differential pane l (Bld)on 04-08-2025 Erythrocyte distribution width (RBC) [Ratio] 21.1 % High 11.5 - 15.0 % [facility] Hematocrit (Bld) [Volume fraction] 25.9 % Low 40.0 - 52.0 % [facility] Hemoglobin (Bld) [Mass/Vol] 7.2 g/dL Low 13.0 - 18.0 g/dL [facility] MCH (RBC) [Entitic mass] 22.3 pg Low 26. 0 - 34.0 pg [facility] MCHC (RBC) [Mass/Vol] 27.8 % Low 30.5 - 36.0 % [facility] MCV (RBC) [Entitic vol] 80.2 fL 77.0 - 99.0 fL [facility] Platelet mean volume (Bld) [Entitic vol] 9.9 fL 9.0 - 12.7 fL [facility] Platelets (Bld) [#/Vol] 314 10*3/uL 140 - 440 10*3/uL [facility] RBC (Bld) [#/Vol] 3.23 10*6/uL Low 4.40 - 5.9 0 10*6/uL [facility] WBC (Bld) [#/Vol] 13 10*3/uL High 3.6 - 10.7 10*3/uL [facility] CBC WITH AUTO DIFFERENTIALon 04-08-2025 Erythrocyte distribution width (RBC) [Ratio] 21.1 % High 11.5-15.0 [facility] Comment on above: Performed By: #### L [id number], [id number] ####Ethyl Blender: UNA ARCE ([phone])[facility] ([facility])[address] Hematocrit (Bld) [Volume fraction] 25.9 % Low 40.0-52.0 [facility] Comment on above: Performed By: #### L [id number], [id number] ####Ethyl Blender: UNA ARCE ([phone])[facility] ([facility])[address] Hemoglobin (Bld) [Mass/Vol] 7.2 g/dL Low 13.0-18.0 [facility] Comment on above: Performed By: #### L [id number], [id number] ####Ethyl Blender: UNA ARCE ([id number])[facility] ([facility])[address] MCH (RBC) [Entitic mass] 22.3 pg Low 26.0-34.0 [facility] Comment on above: Performed By: #### L [id number], [id number] ####Ethyl Blender: UNA ARCE ([phone])[facility] ([facility])[address] MCHC 27.8 % Low 30.5-36.0 [facility] Comment on above: Performed By: #### L [id number], [id number] ####Ethyl Blender: UNA ARCE ([phone])[facility] ([facility])[address] MCV (RBC) [Entitic vol] 80.2 fL Normal 77.0-99.0 [facility] Comment on above: Performed By: #### L [id number], [id number] ####Ethyl Blender: UNA ARCE ([phone])[facility] ([facility])[address] Platelet mean volume (Bld) [Entitic vol] 9.9 fL Normal 9.0-12.7 [facility] Comment on above: Performed By: #### L [id number], [id number] ####Ethyl Blender: UNA ARCE ([phone])[facility] ([facility])[address] [place] [address] Platelets (Bld) [#/Vol] 314 10*3/uL Normal 140-440 [facility] Comment on above: Performed By: #### L [id number], [id number] ####Ethyl Blender: UNA ARCE ([phone])[facility] ([facility])[address] [place] [address] RBC (Bld) [#/Vol] 3.23 10*6/uL Low 4.40-5.90 [facility] Comment on above: Performed By: #### L [id number], [id number] ####Ethyl Blender: UNA ARCE ([phone])[facility] ([facility])[address] [place] [address] WBC (Bld) [#/Vol] 13.0 10*3/uL High 3.6-10.7 [facility] Comment on above: Performed By: #### L [id number], [id number] ####Ethyl Blender: UNA ARCE ([id number])[facility] ([facility])[address] COMPREHENSIVE METABOLIC PANE Anant 04-08-2025 Albumin [Mass/Vol] 2.4 g/dL Low 3.4-4.8 [facility] Comment on above: Performed By: #### L AB103, LAB17 ####Ethyl Blender: UNA ARCE ([id number])[facility] [place] ([facility])[address] ALP [Catalytic activity/Vol] 57 U/L Normal 40-150 [facility] Comment on above: Performed By: #### L AB103, LAB17 ####Ethyl Blender: UNA ARCE ([phone])[facility] [place] ([facility])[address] ALT [Catalytic activity/Vol] U/L Normal <40 [facility] Comment on above: Performed By: #### L AB103, LAB17 ####Ethyl Blender: UNA ARCE ([id number])[facility] [place] ([facility])[address] Anion gap [Moles/Vol] 10 mmol/L Normal 3-13 [facility] Comment on above: Performed By: #### L AB103, LAB17 ####Ethyl Blender: UNA ARCE ([id number])[facility] [place] ([facility])[address] AST [Catalytic activity/Vol] 21 U/L Normal <[address] [facility] Comment on above: Performed By: #### L AB103, LAB17 ####Ethyl Blender: UNA ARCE ([id number])[facility] [place] ([facility])[address] Bilirubin [Mass/Vol] 0.6 mg/dL Normal <1.2 [facility] Comment on above: Performed By: #### L AB103, LAB17 ####Ethyl Blender: UNA ARCE ([id number])[facility] [place] ([facility])[address] Calcium [Mass/Vol] 7.9 mg/dL Low 8.8-10.[address] [facility] Comment on above: Performed By: #### L AB103, LAB17 ####Ethyl Blender: UNA ARCE ([id number])[facility] [place] (SBHLAB)[address] Chloride [Moles/Vol] 99 mmol/L Normal 98-107 [facility] Comment on above: Performed By: #### L [id number], [id number] ####Ethyl Blender: UNA ARCE ([phone])[facility] [place] (SBHLAB)[address] CO2 [Moles/Vol] 33 mmol/L High 23-31 [facility] Comment on above: Performed By: #### L AB103, [id number] ####Ethyl Blender: UNA ARCE ([phone])[facility]ENTERAngel [facility] (SBHLAB)[address] Creatinine [Mass/Vol] 1.78 mg/dL High 0.72-1.25 [facility] Comment on above: Performed By: #### L AB103, LAB17 ####Ethyl Blender: UNA ARCE ([phone])[facility] (SBHLAB)[address] GLOMERULAR FILTRATION RATE ML/MIN/1.73 SQ M.PREDICTED 36.0 mL/min/1.73m*2 Low >60.0 [facility] Comment on above: Result Comment: Calc ulation based on the Chronic Kidney Disease Epidemiology Collaboration (CKD-EPI) equation refit without adjustment for race Performed By: #### L AB103, LAB17 ####Ethyl Blender: UNA ARCE ([phone])[facility] [place] (SBHLAB)[address] [place] [address] [place] Glucose [Mass/Vol] 99 mg/dL Normal 82-115 [facility] Comment on above: Performed By: #### L AB103, LAB17 ####Ethyl Blender: UNA ARCE ([phone])[facility] (SBHLAB)[address] Potassium [Moles/Vol] 3.4 mmol/L Low 3.5-5.1 [facility] Comment on above: Result Comment: Plas ma potassium values may be up to 0.5 mmol/L lower than serum values. Performed By: #### L AB103, LAB17 ####Ethyl Blender: UNA MOHRCER ([phone])[facility] (SBHLAB)[address] Protein [Mass/Vol] 5.8 g/dL Low 6.4-8.3 [facility] Comment on above: Performed By: #### L AB103, LAB17 ####Ethyl Blender: UNA ARCE ([phone])[facility] (SBHLAB)[address] Sodium [Moles/Vol] 142 mmol/L Normal 136-145 [facility] Comment on above: Performed By: #### L AB103, LAB17 ####Ethyl Blender: UNA ARCE ([phone])[facility] (SBHLAB)[address] Urea nitrogen [Mass/Vol] 26 mg/dL High 9-23 [facility] Comment on above: Performed By: #### L AB103, LAB17 ####Ethyl Blender: UNA BERMUDEZSILASMELANIE ([phone])[facility] (SBHLAB)[address] Comprehensive metabolic 1998 panelon 04-08-2025 Albumin [Mass/Vol] 2.4 g/dL Low 3.4 - 4.8 g/dL [facility] ALP [Catalytic activity/Vol] 57 U/L 40 - 150 U/L [facility] ALT [Catalytic activity/Vol] U/L NINF - 40 U/L [facility] Anion gap [Moles/Vol] 10 mmol/L 3 - 13 mmol/L [facility] AST [Catalytic activity/Vol] 21 U/L NINF - 34 U/L [facility] Bilirubin [Mass/Vol] 0.6 mg/dL NINF - 1.2 mg/dL [facility] Calcium [Mass/Vol] 7.9 mg/dL Low 8.8 - 10. 0 mg/dL [facility] Chloride [Moles/Vol] 99 mmol/L 98 - 10 7 mmol/L [facility] CO2 [Moles/Vol] 33 mmol/L High 23 - 31 mmol/L [facility] Creatinine [Mass/Vol] 1.78 mg/dL High 0.72 - 1.25 mg/dL [facility] GFR/1.73 sq M.predicted (S/P/Bld) [Vol rate/Area] 36 mL/min Low - PINF [facility] Glucose [Mass/Vol] 99 mg/dL 82 - 115 mg/dL [facility] Interpretation and review of laboratory results Abnormal [facility] Potassium [Moles/Vol] 3.4 mmol/L Low 3.5 - 5.1 mmol/L [facility] Protein [Mass/Vol] 5.8 g/dL Low 6.4 - 8.3 g/dL [facility] Sodium [Moles/Vol] 142 mmol/L 136 - 145 mmol/L [facility] Urea nitrogen [Mass/Vol] 26 mg/dL High 9 - 23 mg/d L [facility] Consulton 04-08-2025 Consult Normal [facility] Laboratory - Chemistry and C hemistry - challengeOrdered By: Renay Chan on 04-08-2025 Base excess Calc (Bld) [Moles/Vol] 11.2 mmol/L High -3.0 - 3.0 mmol/L [facility] CO2 (Bld) [Partial pressure] 75.1 mm[Hg] High [facility] CO2 [Moles/Vol] 41.2 mmol/L High 22.0 - 28.0 mmol/L [facility] HCO3 (Bld) [Moles/Vol] 38.9 mmol/L High 21.0 - 27.0 mmol/L [facility] Oxygen (Bld) [Partial pressure] 104 mm[Hg] [facility] pH (Bld) 7.332 [pH] Low 7.350 - 7.450 [facility] Laboratory - Chemistry and C hemistry - challengeOrdered By: Sallie Powell on 04-08-2025 Base excess Calc (Bld) [Moles/Vol] 9.9 mmol/L High -3.0 - 3.0 mmol/L [facility] CO2 (Bld) [Partial pressure] 80.1 mm[Hg] Critically high [facility] CO2 [Moles/Vol] 40.6 mmol/L High 22.0 - 28.0 mmol/L [facility] HCO3 (Bld) [Moles/Vol] 38.2 mmol/L High 21.0 - 27.0 mmol/L [facility] Oxygen (Bld) [Partial pressure] 92 mm[Hg] [facility] pH (Bld) 7.296 [pH] Low 7.350 - 7.450 [facility] Laboratory - Chemistry and C hemistry - challengeon 04-08-2025 Glucose [Mass/Vol] 100 mg/dL 70 - 100 mg/dL [facility] Magnesium [Mass/Vol] 1.6 mg/dL 1.6 - 2 .6 mg/dL [facility] Laboratory - Hematology and Cell countsOrdered By: Renay Chan on 04-08-2025 Hemoglobin (Bld) [Mass/Vol] 8.4 g/dL Low 13.5 - 17.5 g/dl [facility] Laboratory - Hematology and Cell countsOrdered By: Sallie Powell on 04-08-2025 Hemoglobin (Bld) [Mass/Vol] 8.6 g/dL Low 13.5 - 17.5 g/dl [facility] Laboratory - Hematology and Cell countson 04-08-2025 Anisocytosis Ql (Bld) Moderate Abnormal (none) [facility] Basophils (Bld) [#/Vol] 0.1 10*3/uL 0.0 - 0.2 10*3/uL [facility] Basophils/100 WBC (Bld) 1 % 0 - 2 % [facility] Hypochromia Ql (Bld) Moderate Abnormal (none) [facility] Lymphocytes (Bld) [#/Vol] 1.8 10*3/uL 1.0 - 4.3 10*3/uL [facility] Lymphocytes/100 WBC (Bld) 14 % Low 15 - 45 % [facility] Monocytes (Bld) [#/Vol] 1.6 10*3/uL High 0.0 - 0.9 10*3/uL [facility] Monocytes/100 WBC (Bld) 12 % 5 - 13 % [facility] Neutrophils (Bld) [#/Vol] 9.6 10*3/uL High 1.8 - 7.5 10*3/uL [facility] Ovalocytes LM Ql (Bld) Slight Abnormal (none) [facility] Poikilocytosis LM Ql (Bld) Moderate Abnormal (none) [facility] RBC morphology finding Nom (Bld) abnormal [facility] Segmented neutrophils/100 WBC (Bld) 74 % 38 - 82 % [facility] Stomatocytes LM Ql (Bld) Moderate Abnormal (none) [facility] MAGNESIUMon 04-08-2025 Magnesium [Mass/Vol] 1.6 mg/dL Normal 1.6-2.6 [facility] Comment on above: Result Comment: YARELI [place] COMMENTS:Higher values can be expected in females during menses. Performed By: #### L AB103, LAB17 ####Ethyl Blender: UNA ARCE ([phone])[facility] [place] (SB[facility]AB)[address] MANUAL DIFFERENTIAL (CELLAVI BANDAR)on 04-08-2025 ANISOCYTOSIS PRESENCE IN BLOOD BY LIGHT MICROSCOPY Moderate Abnormal (none) [facility] Comment on above: Performed By: #### L [id number], [id number] ####Ethyl Blender: UNA ARCE ([phone])[facility] [place] (SBHLAB)[address] BAND NEUTROPHILS TOTAL PER COUNTED LEUKOCYTES BY MANUAL COUNT Normal [facility] Comment on above: Performed By: #### L [id number], [id number] ####Ethyl Blender: UNA ARCE ([phone])[facility] [place] (SBHLAB)[address] [place] [address] BASOPHILS (10*3/UL) IN BLOOD-CELLAVISION 0.1 10*3/uL Normal 0.0-0.2 [facility] Comment on above: Performed By: #### L [id number], [id number] ####Ethyl Blender: UNA ARCE ([id number])[facility] [place] (SBHLAB)[address] BASOPHILS TOTAL PER COUNTED LEUKOCYTES BY MANUAL COUNT 1 Normal [facility] Comment on above: Performed By: #### L [id number], [id number] ####Ethyl Blender: UNA ARCE ([phone])[facility] [place] (SBHLAB)[address] [place] [address] [place] BASOPHILS/100 LEUKOCYTES IN BLOOD-CELLAVISION 1 % Normal 0-2 [facility] Comment on above: Performed By: #### L [id number], [id number] ####Ethyl Blender: UNA MOHRCER ([phone])[facility] [place] (SBHLAB)[address] BLASTS TOTAL PER COUNTED LEUKOCYTES BY MANUAL COUNT [facility] Comment on above: Performed By: #### L [id number], [id number] ####Ethyl Blender: UNA MOHRCER ([phone])[facility] [place] (SBHLAB)[address] EOSINOPHILS TOTAL PER COUNTED LEUKOCYTES BY MANUAL COUNT [facility] Comment on above: Performed By: #### L [id number], [id number] ####Ethyl Blender: UNA MOHRCER ([phone])[facility] [place] (SBHLAB)[address] HYPOCHROMIA (PRESENCE) IN BLOOD BY LIGHT MICROSCOPY Moderate Abnormal (none) [facility] Comment on above: Performed By: #### L [id number], [id number] ####Ethyl Blender: UNA MOHRCER ([phone])[facility] [place] (SBHLAB)[address] [place] [address] [place] LYMPHOCYTES (10*3/UL) IN BLOOD-CELLAVISION 1.8 10*3/uL Normal 1.0-4.[address] [facility] Comment on above: Performed By: #### L [id number], [id number] ####Ethyl Blender: UNA MOHRCER ([id number])[facility] [place] (SBHLAB)[address] [place] [address] [place] LYMPHOCYTES TOTAL PER COUNTED LEUKOCYTES BY MANUAL COUNT 14 [facility] Comment on above: Performed By: #### L [id number], [id number] ####Ethyl Blender: UNA MOHRCER ([phone])[facility] [place] (SBHLAB)[address] [place] [address] [place] LYMPHOCYTES/100 LEUKOCYTES IN BLOOD-CELLAVISION 14 % Low 15-45 [facility] Comment on above: Performed By: #### L [id number], [id number] ####Ethyl Blender: UNA ARCE ([phone])[facility] [place] (SBHLAB)[address] [place] [address] [place] METAMYELOCYTES TOTAL PER COUNTED LEUKOCYTES BY MANUAL COUNT Normal [facility] Comment on above: Performed By: #### L [id number], [id number] ####Ethyl Blender: UNA MOHRCER ([phone])[facility] [place] (SBHLAB)[address] [place] [address] [place] MONOCYTES (10*3/UL) IN BLOOD-CELLAVISION 1.6 10*3/uL High 0.0-0.9 [facility] Comment on above: Performed By: #### L [id number], [id number] ####Ethyl Blender: UNA ARCE ([id number])[facility] [place] (SB[facility]AB)[address] [place] [address] [place] MONOCYTES TOTAL PER COUNTED LEUKOCYTES BY MANUAL COUNT 12 Normal [facility] Comment on above: Performed By: #### L [id number], [id number] ####Ethyl Blender: UNA ARCE ([phone])[facility] [place] (SBHLAB)[address] [place] [address] [place] MONOCYTES/100 LEUKOCYTES IN BLOOD-LUCIANA 12 % Normal 01-19 [facility] Comment on above: Performed By: #### L [id number], [id number] ####Ethyl Blender: UNA MOHRCER ([phone])[facility] [place] (SBHLAB)[address] [place] [address] [place] MYELOCYTES COUNTED BY MANUAL COUNT Normal [facility] Comment on above: Performed By: #### L [id number], [id number] ####Ethyl Blender: UNA ARCE ([phone])[facility] [place] (SBHLAB)[address] [place] [address] [place] NEUTROPHILS TOTAL PER COUNTED LEUKOCYTES BY MANUAL COUNT [address] [facility] Comment on above: Performed By: #### L [id number], [id number] ####Ethyl Blender: UNA ARCE ([phone])[facility] [place] (SBHLAB)[address] [place] [address] [place] OVALOCYTES PRESENCE IN BLOOD BY LIGHT MICROSCOPY Slight Abnormal (none) [facility] Comment on above: Performed By: #### L [id number], [id number] ####Ethyl Blender: UNA ARCE ([phone])[facility] [place] (SB[facility])[address] [place] [address] [place] POIKILOCYTOSIS (PRESENCE) IN BLOOD BY LIGHT MICROSCOPY Moderate Abnormal (none) [facility] Comment on above: Performed By: #### L [id number], [id number] ####Ethyl Blender: UNA ARCE ([phone])[facility] [place] (SB[facility]AB)[address] [place] [address] [place] PROMYELOCYTES TOTAL PER COUNTED LEUKOCYTES BY MANUAL COUNT Normal [facility] Comment on above: Performed By: #### L [id number], [id number] ####Ethyl Blender: UNA ARCE ([phone])[facility] [place] (SBHLAB)[address] [place] [address] [place] RBC MORPHOLOGY IN BLOOD abnormal Normal S [facility] Comment on above: Performed By: #### L [id number], [id number] ####Ethyl Blender: UNA ARCE ([phone])[facility] [place] (SB[facility])[address] [place] [address] [place] SEGMENTED NEUTROPHILS (10*3/UL) IN BLOOD-CELLAVISION 9.6 10*3/uL High 1.8-7.[address] [facility] Comment on above: Performed By: #### L [id number], [id number] ####Ethyl Blender: UNA ARCE ([phone])[facility] [place] (SB[facility])[address] SEGMENTED NEUTROPHILS/100 LEUKOCYTES-CE 74 % Normal 38-[address] [facility] Comment on above: Performed By: #### L [id number], [id number] ####Ethyl Blender: UNA ARCE ([phone])[facility] (SBHLAB)[address] STOMATOCYTES IN BLOOD BY LIGHT MICROSCOPY Moderate Abnormal (none) [facility] Comment on above: Performed By: #### L [id number], [id number] ####Ethyl Blender: UNA ARCE ([phone])[facility] (SBHLAB)[address] UNCLASSIFIED CELLS TOTAL PER COUNTED LEUKOCYTES BY MANUAL COUNT Normal [facility] Comment on above: Performed By: #### L [id number], [id number] ####Ethyl Blender: UNA ARCE ([phone])[facility] (SBHLAB)[address] VARIANT LYMPHOCYTES TOTAL PER COUNTED LEUKOCYTES BY MANUAL COUNT Normal [facility] Comment on above: Performed By: #### L [id number], [id number] ####Ethyl Blender: UNA ARCE ([phone])[facility] (SBHLAB)[address] Magnesium [Mass/Vol]on 04-08 Interpretation and review of laboratory results Normal [facility] No Panel InformationOrdered By: Renay Chan on 04-08-2025 Amount Of Oxygen 0.40 [facility] ander Interpretation and review of laboratory results Abnormal [facility] Source Of Oxygen Non-Invasive Ventilator [facility] No Panel InformationOrdered By: Sallie Powell on 04-08-2025 Amount Of Oxygen 4 liters [facility] Interpretation and review of laboratory results Abnormal [facility] Source Of Oxygen Nasal Cannula (LPM) [facility] No Panel Informationon 04-08 Interpretation and review of laboratory results Normal [facility] Basophils Manual 1 [facility] Interpretation and review of laboratory results Abnormal [facility] Lymphocytes Manual 14 [facility] Monocytes Manual 12 [facility] alth Neutrophils Manual 75 [facility] Progress Noteon 04-08-2025 Progress Note Normal [facility] Progress Note Normal [facility] Progress Note Normal [facility] Progress Note Normal [facility] Progress Note Normal [facility] XR Chest Single viewon 04-08 [facility] EM[facility] RADIOLOGY SYSTEM [facility] EM[facility]GENC[facility]PART[facility] RADIOLOGY SYSTEM [facility] Radiology Study observation (narrative) Lynette He alth XR Chest Single viewOrdered By: Nelson Sow on 04-08-2025 [facility] Work Phone: CBC W Auto Differential pane l (Bld)Ordered By: Sharita Beck on 04-07-2025 Erythrocyte distribution width (RBC) [Ratio] 20.5 % High 11.5 - 15.0 % [facility] Hematocrit (Bld) [Volume fraction] 27.2 % Low 40.0 - 52.0 % [facility] Hemoglobin (Bld) [Mass/Vol] 7.4 g/dL Low 13.0 - 18.0 g/dL [facility] MCH (RBC) [Entitic mass] 21.8 pg Low 26. 0 - 34.0 pg [facility] MCHC (RBC) [Mass/Vol] 27.2 % Low 30.5 - 36.0 % [facility] MCV (RBC) [Entitic vol] 80 fL 77.0 - 99.0 fL [facility] Platelet mean volume (Bld) [Entitic vol] 9.8 fL 9.0 - 12.7 fL [facility] Platelets (Bld) [#/Vol] 346 10*3/uL 140 - 440 10*3/uL [facility] RBC (Bld) [#/Vol] 3.4 10*6/uL Low 4.40 - 5.9 0 10*6/uL [facility] WBC (Bld) [#/Vol] 11.5 10*3/uL High 3.6 - 10.7 10*3/uL [facility] CBC WITH AUTO DIFFERENTIALon 04-07-2025 Erythrocyte distribution width (RBC) [Ratio] 20.5 % High 11.5-15.[address] [facility] Comment on above: Performed By: #### L [id number], [id number] ####Ethyl Blender: UNA STAUFFERMELANIE ([phone])[facility]Angel [facility]ZSIERRA VISTA HOSPITALMarisol (SBHLAB)[address] Hematocrit (Bld) [Volume fraction] 27.2 % Low 40.0-52.0 [facility] Comment on above: Performed By: #### L [id number], [id number] ####Ethyl Blender: UNA STAUFFERMELANIE ([phone])[facility] (SBHLAB)[address] Hemoglobin (Bld) [Mass/Vol] 7.4 g/dL Low 13.0-18.0 [facility] Comment on above: Performed By: #### L [id number], [id number] ####Ethyl Blender: UNA BERMUDEZPEDRO ([phone])[facility] (SBHLAB)[address] [place] [address] MCH (RBC) [Entitic mass] 21.8 pg Low 26.0-34.0 [facility] Comment on above: Performed By: #### L [id number], [id number] ####Ethyl Blender: UNA ARCE ([phone])[facility] (SBHLAB)[address] MCHC 27.2 % Low 30.5-36.0 [facility] Comment on above: Performed By: #### L [id number], [id number] ####Ethyl Blender: UNA ARCE ([phone])[facility]Angel [facility] (SBHLAB)[address] MCV (RBC) [Entitic vol] 80.0 fL Normal 77.0-99.0 S [facility] Comment on above: Performed By: #### L [id number], [id number] ####Ethyl Blender: UNA ARCE ([phone])[facility]Angel [facility] (SBHLAB)[address] Platelet mean volume (Bld) [Entitic vol] 9.8 fL Normal 9.0-12.7 [facility] Comment on above: Performed By: #### L [id number], [id number] ####Ethyl Blender: UNA ARCE ([phone])[facility]Angel [facility] (SBHLAB)[address] Platelets (Bld) [#/Vol] 346 10*3/uL Normal 140-440 [facility] Comment on above: Performed By: #### L [id number], [id number] ####Ethyl Blender: UNA ARCE ([phone])[facility]Angel [facility] (SBHLAB)[address] RBC (Bld) [#/Vol] 3.40 10*6/uL Low 4.40-5.90 [facility] Comment on above: Performed By: #### L [id number], [id number] ####Ethyl Blender: UNA ARCE ([phone])[facility]Angel [facility] (SBHLAB)[address] WBC (Bld) [#/Vol] 11.5 10*3/uL High 3.6-10.7 [facility] Comment on above: Performed By: #### L [id number], [id number] ####Ethyl Blender: UNA ARCE ([id number])[facility] (SBHLAB)[address] [place] [address] COMPREHENSIVE METABOLIC PANE Anant 04-07-2025 Albumin [Mass/Vol] 2.4 g/dL Low 3.4-4.8 [facility] Comment on above: Performed By: #### L AB17, [id number] ####Ethyl Blender: UNA ARCE ([phone])[facility] (SBHLAB)[address] ALP [Catalytic activity/Vol] 57 U/L Normal 40-150 [facility] Comment on above: Performed By: #### L AB17, [id number] ####Ethyl Blender: UNA ARCE ([phone])[facility] (SBHLAB)[address] [place] [address] [place] ALT [Catalytic activity/Vol] U/L Normal <40 [facility] Comment on above: Performed By: #### L AB17, [id number] ####Ethyl Blender: UNA ARCE ([phone])[facility] MCKAYN (SBHLAB)[address] Anion gap [Moles/Vol] 14 mmol/L High 3-13 [facility] Comment on above: Performed By: #### L AB17, [id number] ####Ethyl Blender: UNA ARCE ([phone])[facility] (SBHLAB)[address] AST [Catalytic activity/Vol] 23 U/L Normal <34 [facility] Comment on above: Performed By: #### L AB17, [id number] ####Ethyl Blender: UNA ARCE ([id number])[facility] (SBHLAB)[address] Bilirubin [Mass/Vol] 0.7 mg/dL Normal <1.2 [facility] Comment on above: Performed By: #### L AB17, [id number] ####Ethyl Blender: UNA ARCE ([phone])[facility]ENTERAngel BASHIRN (SBHLAB)[address] Calcium [Mass/Vol] 7.9 mg/dL Low 8.8-10.0 [facility] Comment on above: Performed By: #### L AB17, [id number] ####Ethyl Blender: UNA ARCE ([id number])[facility] [place] (SBHLAB)[address] [place] [address] [place] Chloride [Moles/Vol] 98 mmol/L Normal 98-107 [facility] Comment on above: Performed By: #### L AB17, [id number] ####Ethyl Blender: UNA ARCE ([phone])[facility]RA [facility]A HOSPITALN (SBHLAB)[address] [place] [address] [place] CO2 [Moles/Vol] 31 mmol/L Normal 23-31 [facility] Comment on above: Performed By: #### L AB17, [id number] ####Ethyl Blender: UNA ARCE ([id number])[facility]ENTERAngel SANCHEZLUIS (SBHLAB)[address] Creatinine [Mass/Vol] 1.63 mg/dL High 0.72-1.25 [facility] Comment on above: Performed By: #### L AB17, [id number] ####Ethyl Blender: UNA ARCE ([phone])[facility]Angel SANCHEZCHRISTINAN (SBHLAB)[address] GLOMERULAR FILTRATION RATE ML/MIN/1.73 SQ M.PREDICTED 40.0 mL/min/1.73m*2 Low >60.0 [facility] Comment on above: Result Comment: Calc ulation based on the Chronic Kidney Disease Epidemiology Collaboration (CKD-EPI) equation refit without adjustment for race Performed By: #### L AB17, [id number] ####Ethyl Blender: UNA ARCE ([phone])[facility] SANCHEZLUIS (SBHLAB)[address] Glucose [Mass/Vol] 88 mg/dL Normal 82-115 [facility] Comment on above: Performed By: #### L AB17, [id number] ####Ethyl Blender: UNA ARCE ([id number])[facility] SANCHEZCHRISTINAN (SBHLAB)[address] Potassium [Moles/Vol] 3.6 mmol/L Normal 3.5-5.1 [facility] Comment on above: Result Comment: [facility] potassium values may be up to 0.5 mmol/L lower than serum values. Performed By: #### L AB17, [id number] ####Ethyl Blender: UNA ARCE ([id number])[facility] SANCHEZCHRISTINAN (SBHLAB)[address] Protein [Mass/Vol] 5.7 g/dL Low 6.4-8.3 [facility] Comment on above: Performed By: #### L AB17, [id number] ####Ethyl Blender: UNA MOHRCER ([id number])[facility] ESCOTO (SBHLAB)[address] Sodium [Moles/Vol] 143 mmol/L Normal 136-145 [facility] Comment on above: Performed By: #### L AB17, [id number] ####Ethyl Blender: UNA BERMUDEZPEDRO ([id number])[facility] (SBHLAB)[address] Urea nitrogen [Mass/Vol] 26 mg/dL High 9-23 [facility] Comment on above: Performed By: #### L AB17, [id number] ####Ethyl Blender: UNA STAUFFERMELANIE ([phone])[facility] ([facility])[address] Comprehensive metabolic 1998 panelon 04-07-2025 Albumin [Mass/Vol] 2.4 g/dL Low 3.4 - 4.8 g/dL [facility] ALP [Catalytic activity/Vol] 57 U/L 40 - 150 U/L [facility] ALT [Catalytic activity/Vol] U/L NINF - 40 U/L [facility] Anion gap [Moles/Vol] 14 mmol/L High 3 - 13 mmol/L [facility] AST [Catalytic activity/Vol] 23 U/L [facility] MARYVALEF - 34 U/L [facility] Bilirubin [Mass/Vol] 0.7 mg/dL NINF - 1.2 mg/dL [facility] Calcium [Mass/Vol] 7.9 mg/dL Low 8.8 - 10. 0 mg/dL [facility] Chloride [Moles/Vol] 98 mmol/L 98 - 10 7 mmol/L [facility] CO2 [Moles/Vol] 31 mmol/L 23 - 31 mmol/L [facility] Creatinine [Mass/Vol] 1.63 mg/dL High 0.72 - 1.25 mg/dL [facility] GFR/1.73 sq M.predicted (S/P/Bld) [Vol rate/Area] 40 mL/min Low - PINF [facility] Glucose [Mass/Vol] 88 mg/dL 82 - 115 mg/dL [facility] Interpretation and review of laboratory results Abnormal [facility] Potassium [Moles/Vol] 3.6 mmol/L 3.5 - 5.1 mmol/L [facility] Protein [Mass/Vol] 5.7 g/dL Low 6.4 - 8.3 g/dL [facility] Sodium [Moles/Vol] 143 mmol/L 136 - 145 mmol/L [facility] Urea nitrogen [Mass/Vol] 26 mg/dL High 9 - 23 mg/d L [facility] Consulton 04-07-2025 Consult Normal [facility] Laboratory - Chemistry and C hemistry - challengeon 04-07-2025 Magnesium [Mass/Vol] 1.7 mg/dL 1.6 - 2 .6 mg/dL [facility] Laboratory - Hematology and Cell countson 04-07-2025 Anisocytosis Ql (Bld) Slight Abnormal (none) [facility] Eosinophils (Bld) [#/Vol] 0.3 10*3/uL 0.0 - 0.5 10*3/uL [facility] Eosinophils/100 WBC (Bld) 3 % 0 - 6 % [facility] Hypochromia Ql (Bld) Moderate Abnormal (none) [facility] Lymphocytes (Bld) [#/Vol] 0.9 10*3/uL Low 1.0 - 4.3 10*3/uL [facility] Lymphocytes/100 WBC (Bld) 8 % Low 15 - 45 % [facility] Monocytes (Bld) [#/Vol] 0.8 10*3/uL 0.0 - 0.9 10*3/uL [facility] Monocytes/100 WBC (Bld) 7 % 5 - 13 % [facility] Neutrophils (Bld) [#/Vol] 9.5 10*3/uL High 1.8 - 7.5 10*3/uL [facility] Nucleated RBC/100 WBC (Bld) [Ratio] 1 % 0 - 2 % [facility] Poikilocytosis LM Ql (Bld) Slight Abnormal (none) [facility] RBC morphology finding Nom (Bld) abnormal [facility] Segmented neutrophils/100 WBC (Bld) 83 % High 38 - 82 % [facility] Stomatocytes LM Ql (Bld) Moderate Abnormal (none) [facility] MAGNESIUMon 07-30-2025 Magnesium [Mass/Vol] 1.7 mg/dL Normal 1.6-2.6 [facility] Comment on above: Result Comment: YARELI R COMMENTS:Higher values can be expected in females during menses. Performed By: #### L AB17, [id number] ####Ethyl Blender: UNA ARCE ([phone])[facility] [place] ([facility])[address] MANUAL DIFFERENTIAL (CELLAVI BANDAR)on 04-07-2025 ANISOCYTOSIS PRESENCE IN BLOOD BY LIGHT MICROSCOPY Slight Abnormal (none) [facility] Comment on above: Performed By: #### L [id number], [id number] ####Ethyl Blender: UNA ARCE ([id number])[facility] [place] ([facility])[address] BAND NEUTROPHILS TOTAL PER COUNTED LEUKOCYTES BY MANUAL COUNT Normal [facility] Comment on above: Performed By: #### L [id number], [id number] ####Ethyl Blender: UNA ARCE ([phone])[facility] [place] ([facility])[address] BASOPHILS TOTAL PER COUNTED LEUKOCYTES BY MANUAL COUNT Normal [facility] Comment on above: Performed By: #### L [id number], [id number] ####Ethyl Blender: UNA ARCE ([phone])[facility] [place] ([facility])[address] BLASTS TOTAL PER COUNTED LEUKOCYTES BY MANUAL COUNT Normal [facility] Comment on above: Performed By: #### L [id number], [id number] ####Ethyl Blender: UNA ARCE ([phone])[facility] [place] ([facility])[address] [place] [address] [place] EOSINOPHILS (10*3/UL) IN BLOOD-CELLAVISION 0.3 10*3/uL Normal 0.0-0.5 [facility] Comment on above: Performed By: #### L [id number], [id number] ####Ethyl Blender: UNA ARCE ([id number])[facility] [place] ([facility])[address] [place] [address] [place] EOSINOPHILS TOTAL PER COUNTED LEUKOCYTES BY MANUAL COUNT 3 High 0-1 [facility] Comment on above: Performed By: #### L [id number], [id number] ####Ethyl Blender: UNA ARCE ([phone])[facility] [place] ([facility])[address] [place] [address] [place] EOSINOPHILS/100 LEUKOCYTES IN BLOOD-CELLAVISION 3 % Normal 0-6 [facility] Comment on above: Performed By: #### L [id number], [id number] ####Ethyl Blender: UNA MOHRCER ([phone])[facility] [place] ([facility])[address] [place] [address] [place] HYPOCHROMIA (PRESENCE) IN BLOOD BY LIGHT MICROSCOPY Moderate Abnormal (none) [facility] Comment on above: Performed By: #### L [id number], [id number] ####Ethyl Blender: UNA ARCE ([phone])[facility] [place] ([facility])[address] [place] [address] [place] LYMPHOCYTES (10*3/UL) IN BLOOD-CELLAVISION 0.9 10*3/uL Low 1.0-4.3 [facility] Comment on above: Performed By: #### L [id number], [id number] ####Ethyl Blender: UNA ARCE ([id number])[facility] [place] ([facility])[address] [place] [address] [place] LYMPHOCYTES TOTAL PER COUNTED LEUKOCYTES BY MANUAL COUNT 8 Normal [facility] Comment on above: Performed By: #### L [id number], [id number] ####Ethyl Blender: UNA ARCE ([phone])[facility] [place] ([facility])[address] [place] [address] [place] LYMPHOCYTES/100 LEUKOCYTES IN BLOOD-CELLAVISION 8 % Low 15-[address] [facility] Comment on above: Performed By: #### L [id number], [id number] ####Ethyl Blender: UNA ARCE ([id number])[facility] [place] ([facility])[address] [place] [address] [place] METAMYELOCYTES TOTAL PER COUNTED LEUKOCYTES BY MANUAL COUNT Normal [facility] Comment on above: Performed By: #### L [id number], [id number] ####Ethyl Blender: UNA MOHRCER ([phone])[facility] [place] ([facility])[address] [place] [address] [place] MONOCYTES (10*3/UL) IN BLOOD-CELLAVISION 0.8 10*3/uL Normal 0.0-0.9 [facility] Comment on above: Performed By: #### L [id number], [id number] ####Ethyl Blender: UNA MOHRCER ([phone])[facility] [place] ([facility])[address] [place] [address] [place] MONOCYTES TOTAL PER COUNTED LEUKOCYTES BY MANUAL COUNT 7 Normal [facility] Comment on above: Performed By: #### L [id number], [id number] ####Ethyl Blender: UNA ARCE ([phone])[facility] [place] ([facility])[address] [place] [address] [place] MONOCYTES/100 LEUKOCYTES IN BLOOD-LUCIANA 7 % Normal 5-[address] [facility] Comment on above: Performed By: #### L [id number], [id number] ####Ethyl Blender: UNA ARCE ([id number])[facility] [place] ([facility])[address] [place] [address] [place] MYELOCYTES COUNTED BY MANUAL COUNT Normal [facility] Comment on above: Performed By: #### L [id number], [id number] ####Ethyl Blender: UNA ARCE ([id number])[facility] [place] ([facility])[address] [place] [address] [place] NEUTROPHILS TOTAL PER COUNTED LEUKOCYTES BY MANUAL COUNT 86 Normal [facility] Comment on above: Performed By: #### L [id number], [id number] ####Ethyl Blender: UNA ARCE ([id number])[facility] [place] ([facility])[address] [place] [address] [place] NUCLEATED ERYTHROCYTES/100 LEUKOCTES IN BLOOD-CELLAVISION 1 % Normal 0-2 [facility] Comment on above: Performed By: #### L [id number], [id number] ####Ethyl Blender: UNA ARCE ([phone])[facility] [place] ([facility])[address] [place] [address] [place] POIKILOCYTOSIS (PRESENCE) IN BLOOD BY LIGHT MICROSCOPY Slight Abnormal (none) [facility] Comment on above: Performed By: #### L [id number], [id number] ####Ethyl Blender: UNA ARCE ([phone])[facility] [place] ([facility])[address] [place] [address] [place] PROMYELOCYTES TOTAL PER COUNTED LEUKOCYTES BY MANUAL COUNT Normal [facility] Comment on above: Performed By: #### L [id number], [id number] ####Ethyl Blender: UNA ARCE ([phone])[facility] [place] ([facility])[address] [place] [address] [place] RBC MORPHOLOGY IN BLOOD abnormal Normal [facility] Comment on above: Performed By: #### L [id number], [id number] ####Ethyl Blender: UNA ARCE ([id number])[facility] [place] ([facility])[address] [place] [address] [place] SEGMENTED NEUTROPHILS (10*3/UL) IN BLOOD-CELLAVISION 9.5 10*3/uL High 1.8-7.5 [facility] Comment on above: Performed By: #### L [id number], [id number] ####Ethyl Blender: UNA ARCE ([id number])[facility] [place] ([facility])[address] [place] [address] [place] SEGMENTED NEUTROPHILS/100 LEUKOCYTES-CE 83 % High 38-82 [facility] Comment on above: Performed By: #### L [id number], [id number] ####Ethyl Blender: UNA ARCE ([id number])[facility] ([facility])[address] STOMATOCYTES IN BLOOD BY LIGHT MICROSCOPY Moderate Abnormal (none) [facility] Comment on above: Performed By: #### L [id number], [id number] ####Ethyl Blender: UNA ARCE ([phone])[facility] ([facility])[address] UNCLASSIFIED CELLS TOTAL PER COUNTED LEUKOCYTES BY MANUAL COUNT Normal [facility] Comment on above: Performed By: #### L [id number], [id number] ####Ethyl Blender: UNA ARCE ([id number])[facility] ([facility])[address] VARIANT LYMPHOCYTES TOTAL PER COUNTED LEUKOCYTES BY MANUAL COUNT Normal [facility] Comment on above: Performed By: #### L [id number], [id number] ####Ethyl Blender: UNA ARCE ([phone])[facility] ([facility])[address] Magnesium [Mass/Vol]on 04-07 Interpretation and review of laboratory results Normal [facility] No Panel Informationon 04-07 Eosinophils Manual 3 High 0 - 1 [facility] Lymphocytes Manual 8 [facility] Monocytes Manual 7 [facility] Neutrophils Manual 86 [facility] No Panel InformationOrdered By: Sharita Beck on 04-07-2025 Interpretation and review of laboratory results Abnormal [facility] Progress Noteon 04-07-2025 Progress Note Normal [facility] Normal [facility] Progress Note Normal [facility] Progress Note Normal [facility] Progress Note Normal [facility] [id number] 04-06-2025 [id number] Normal [facility] CBC W Auto Differential pane l (Bld)Ordered By: Annmarie Zuñiga on 04-06-2025 Hematocrit (Bld) [Volume fraction] 27.2 % Low 40.0 - 52.0 % [facility] Hemoglobin (Bld) [Mass/Vol] 7.6 g/dL Low 13.0 - 18.0 g/dL [facility] MCH (RBC) [Entitic mass] 22 pg Low 26. 0 - 34.0 pg [facility] MCV (RBC) [Entitic vol] 78.6 fL 77.0 - 99.0 fL [facility] RBC (Bld) [#/Vol] 3.46 10*6/uL Low 4.40 - 5.9 0 10*6/uL [facility] CBC WITH AUTO DIFFERENTIALon 04-06-2025 Erythrocyte distribution width (RBC) [Ratio] 20.5 % High 11.5-15.[address] [facility] Comment on above: Performed By: #### L [id number], [id number] ####Ethyl Blender: UNA ARCE ([id number])[facility] [place] [address] Hematocrit (Bld) [Volume fraction] 27.2 % Low 40.0-52.0 [facility] Comment on above: Performed By: #### L [id number], [id number] ####Ethyl Blender: UNA ARCE ([phone])[facility] [place] [address] Hemoglobin (Bld) [Mass/Vol] 7.6 g/dL Low 13.0-18.0 [facility] Comment on above: Performed By: #### L [id number], [id number] ####Ethyl Blender: UNA ARCE ([id number])[facility] ([facility] [place] [address] MCH (RBC) [Entitic mass] 22.0 pg Low 26.0-34.[address] [facility] Comment on above: Performed By: #### L [id number], [id number] ####Ethyl Blender: UNA ARCE ([phone])[facility] ([facility] [place] [address] MCHC 27.9 % Low 30.5-36.[address] [facility] Comment on above: Performed By: #### L [id number], [id number] ####Ethyl Blender: UNA ARCE ([phone])[facility] [place] ([facility])[address] MCV (RBC) [Entitic vol] 78.6 fL Normal 77.0-99.0 [facility] Comment on above: Performed By: #### L [id number], [id number] ####Ethyl Blender: UNA ARCE ([id number])[facility] [place] ([facility])[address] Platelet mean volume (Bld) [Entitic vol] 9.7 fL Normal 9.0-12.7 [facility] Comment on above: Performed By: #### L [id number], [id number] ####Ethyl Blender: UNA ARCE ([phone])[facility] [place] ([facility])[address] Platelets (Bld) [#/Vol] 344 10*3/uL Normal 140-440 [facility] Comment on above: Performed By: #### L [id number], [id number] ####Ethyl Blender: UNA ARCE ([id number])[facility] [place] ([facility])[address] RBC (Bld) [#/Vol] 3.46 10*6/uL Low 4.40-5.90 [facility] Comment on above: Performed By: #### L [id number], [id number] ####Ethyl Blender: UNA ARCE ([id number])[facility] [place] ([facility])[address] WBC (Bld) [#/Vol] 10.3 10*3/uL Normal 3.6-10.7 [facility] Comment on above: Performed By: #### L [id number], [id number] ####Ethyl Blender: UNA ARCE ([id number])[facility] [place] ([facility])[address] COMPREHENSIVE METABOLIC PANE Anant 04-06-2025 Albumin [Mass/Vol] 2.6 g/dL Low 3.4-4.[address] [facility] Comment on above: Performed By: #### L AB17, [id number] ####Ethyl Blender: UNA ARCE ([id number])[facility] [place] ([facility])[address] ALP [Catalytic activity/Vol] 63 U/L Normal 40-[address] [facility] Comment on above: Performed By: #### L AB17, [id number] ####Ethyl Blender: UNA ARCE ([id number])[facility] [place] ([facility])[address] ALT [Catalytic activity/Vol] 6 U/L Normal <40 [facility] Comment on above: Performed By: #### L AB17, [id number] ####Ethyl Blender: UNA ARCE ([id number])[facility] [place] ([facility])[address] Anion gap [Moles/Vol] 13 mmol/L Normal 3-13 [facility] Comment on above: Performed By: #### L AB17, [id number] ####Ethyl Blender: UNA ARCE ([id number])[facility] [place] ([facility])[address] AST [Catalytic activity/Vol] 25 U/L Normal <[address] [facility] Comment on above: Performed By: #### L AB17, [id number] ####Ethyl Blender: UNA ARCE ([id number])[facility] [place] ([facility])[address] Bilirubin [Mass/Vol] 1.7 mg/dL High <1.2 [facility] Comment on above: Performed By: #### L AB17, [id number] ####Ethyl Blender: UNA ARCE ([id number])[facility] [place] ([facility])[address] Calcium [Mass/Vol] 8.2 mg/dL Low 8.8-10.0 [facility] Comment on above: Performed By: #### L AB17, [id number] ####Ethyl Blender: UNA ARCE ([phone])[facility] [place] ([place])[address] Chloride [Moles/Vol] 104 mmol/L Normal 98-107 [facility] Comment on above: Performed By: #### L AB17, [id number] ####Ethyl Blender: UNA ARCE ([id number])[facility] ([facility])[address] CO2 [Moles/Vol] 26 mmol/L Normal 23-31 [facility] Comment on above: Performed By: #### L AB17, [id number] ####Ethyl Blender: UNA ARCE ([id number])[facility] ([facility])[address] Creatinine [Mass/Vol] 1.44 mg/dL High 0.72-1.25 [facility] Comment on above: Performed By: #### L AB17, [id number] ####Ethyl Blender: UNA ARCE ([phone])[facility] ([facility])[address] GLOMERULAR FILTRATION RATE ML/MIN/1.73 SQ M.PREDICTED 46.4 mL/min/1.73m*2 Low >60.0 [facility] Comment on above: Result Comment: Calc ulation based on the Chronic Kidney Disease Epidemiology Collaboration (CKD-EPI) equation refit without adjustment for race Performed By: #### L AB17, [id number] ####Ethyl Blender: UNA ARCE ([phone])[facility] ([facility])[address] [place] [address] [place] Glucose [Mass/Vol] 98 mg/dL Normal 82-115 [facility] Comment on above: Performed By: #### L AB17, [id number] ####Ethyl Blender: UNA ARCE ([phone])[facility] ([facility])[address] Potassium [Moles/Vol] 4.2 mmol/L Normal 3.5-5.1 [facility] Comment on above: Result Comment: [facility] potassium values may be up to 0.5 mmol/L lower than serum values. Performed By: #### L AB17, [id number] ####Ethyl Blender: UNA ARCE ([phone])[facility] [place] ([place])[address] Protein [Mass/Vol] 6.1 g/dL Low 6.4-8.3 [facility] Comment on above: Performed By: #### L AB17, [id number] ####Ethyl Blender: UNA ARCE ([id number])[facility] [place] ([place])[address] Sodium [Moles/Vol] 143 mmol/L Normal 136-145 [facility] Comment on above: Performed By: #### L AB17, [id number] ####Ethyl Blender: UNA ARCE ([id number])[facility] [place] ([place])[address] Urea nitrogen [Mass/Vol] 24 mg/dL High 9-23 [facility] Comment on above: Performed By: #### L AB17, [id number] ####Ethyl Blender: UNA ARCE ([phone])[facility] [place] ([place])[address] ABDOMEN PELVIS WO IV CONT RASTon 04-06-2025 CT ABDOMEN PELVIS WO IV CONTRAST Normal [facility] CT Abdomen and Pelvis WO con traston 04-06-2025 [facility] Radiology Study observation (narrative) [facility] CT Abdomen and Pelvis WO con trastOrdered By: Sergey Gooden on 04-06-2025 [facility] Work Phone: CT CHEST WO IV CONTRASTon CT CHEST WO IV CONTRAST Normal S [facility] CT Chest WO contraston 04-06 [facility] Radiology Study observation (narrative) [facility] CT Chest WO contrastOrdered By: Cari Lazrao on 04-06-2025 [facility] Work Phone: Consulton 04-06-2025 Consult Normal [facility] Consult Normal [facility] ECG 12-LEADon 04-06-2025 ECG 12-LEAD IMPRESSION: Sinus arrhythmia Nonspecific intraventricular conduction delay Probable anterolateral infarct, old No previous ECG for comparison Electronically Signed On 04-06-2025 01:54:21 EDT by Maik Laird Normal [facility] IRON AND TIBCon 04-06-2025 IRON BINDING CAPACITY 381 ug/dL Normal 250-450 [facility] Comment on above: Performed By: #### L [id number] ####Ethyl Blender: UNA ARCE ([id number])[facility] ([facility] [place] [address] IRON SATURATION 49.3 % Normal 20.0-50.0 [facility] Comment on above: Performed By: #### L [id number] ####Ethyl Blender: UNA ARCE ([phone])[facility] (SB[facility])[address] [place] [address] IRON, TOTAL 188 ug/dL High 65-175 [facility] Comment on above: Performed By: #### L [id number] ####Ethyl Blender: UNA ARCE ([phone])[facility] (SB[facility])[address] [place] [address] Laboratory - Hematology and Cell countson 04-06-2025 Basophils (Bld) [#/Vol] 0.2 10*3/uL 0.0 - 0.2 10*3/uL [facility] Basophils/100 WBC (Bld) 2 % 0 - 2 % [facility] Lymphocytes (Bld) [#/Vol] 1.4 10*3/uL 1.0 - 4.3 10*3/uL [facility] Lymphocytes/100 WBC (Bld) 14 % Low 15 - 45 % [facility] Monocytes (Bld) [#/Vol] 0.7 10*3/uL 0.0 - 0.9 10*3/uL [facility] Monocytes/100 WBC (Bld) 7 % 5 - 13 % [facility] RBC morphology finding Nom (Bld) abnormal [facility] MAGNESIUMon 04-06-2025 Magnesium [Mass/Vol] 1.8 mg/dL Normal 1.6-2.6 [facility] Comment on above: Result Comment: YARELI R COMMENTS:Higher values can be expected in females during menses. Performed By: #### L AB17, [id number] ####Ethyl Blender: UNA ARCE ([phone])[facility] [place] ([place])[address] [place] [address] MANUAL DIFFERENTIAL (CELLAVI BANDAR)on 04-06-2025 ANISOCYTOSIS PRESENCE IN BLOOD BY LIGHT MICROSCOPY Moderate Abnormal (none) [facility] Comment on above: Performed By: #### L [id number], [id number] ####Ethyl Blender: UNA ARCE ([phone])[facility] [employer] [facility] (SBHL[facility])[address] [place] [address] BAND NEUTROPHILS TOTAL PER COUNTED LEUKOCYTES BY MANUAL COUNT 1 Normal [facility] Comment on above: Performed By: #### L [id number], [id number] ####Ethyl Blender: UNA ARCE ([phone])[facility] ([facility])[address] [place] [address] BANDS (10*3/UL) IN BLOOD-CELLAVISION 0.1 10*3/uL High <=0.0 [facility] Comment on above: Performed By: #### L [id number], [id number] ####Ethyl Blender: UNA ARCE ([id number])[facility] [place] ([facility])[address] [place] [address] [place] BASOPHILS (10*3/UL) IN BLOOD-CELLAVISION 0.2 10*3/uL Normal 0.0-0.2 [facility] Comment on above: Performed By: #### L [id number], [id number] ####Ethyl Blender: UNA [id number])[facility] [place] ([facility])[address] [place] [address] [place] BASOPHILS TOTAL PER COUNTED LEUKOCYTES BY MANUAL COUNT [address] [facility] Comment on above: Performed By: #### L [id number], [id number] ####Ethyl Blender: UNA ARCE ([id number])[facility] [place] [facility] [place] [address] [place] BASOPHILS/100 LEUKOCYTES IN BLOOD-CELLAVISION 2 % Normal 0-2 [facility] Comment on above: Performed By: #### L [id number], [id number] ####Ethyl Blender: UNA ARCE ([id number])[facility] [place] ([facility])[address] [place] [address] [place] BLASTS TOTAL PER COUNTED LEUKOCYTES BY MANUAL COUNT Normal [facility] Comment on above: Performed By: #### L [id number], [id number] ####Ethyl Blender: UNA ARCE ([id number])[facility] [place] ([facility])[address] [place] [address] [place] EOSINOPHILS TOTAL PER COUNTED LEUKOCYTES BY MANUAL COUNT Normal [facility] Comment on above: Performed By: #### L [id number], [id number] ####Ethyl Blender: UNA ARCE ([id number])[facility] [place] ([facility])[address] [place] [address] [place] HYPOCHROMIA (PRESENCE) IN BLOOD BY LIGHT MICROSCOPY Moderate Abnormal (none) [facility] Comment on above: Performed By: #### L [id number], [id number] ####Ethyl Blender: UNA ARCE ([id number])[facility] [facility] [place] ([facility])[address] [place] [address] [place] LYMPHOCYTES (10*3/UL) IN BLOOD-CELLAVISION 1.4 10*3/uL Normal 1.0-4.[address] [facility] Comment on above: Performed By: #### L [id number], [id number] ####Ethyl Blender: UNA ARCE ([phone])[facility] [place] ([facility])[address] [place] [address] [place] LYMPHOCYTES TOTAL PER COUNTED LEUKOCYTES BY MANUAL COUNT [address] [facility] Comment on above: Performed By: #### L [id number], [id number] ####Ethyl Blender: UNA MOHRCER ([phone])[facility] [place] (SB[facility])[address] [place] [address] [place] LYMPHOCYTES/100 LEUKOCYTES IN BLOOD-CELLAVISION 14 % Low 15-[address] [facility] Comment on above: Performed By: #### L [id number], [id number] ####Ethyl Blender: UNA MOHRCER ([phone])[facility] [place] (SB[facility])[address] METAMYELOCYTES TOTAL PER COUNTED LEUKOCYTES BY MANUAL COUNT Normal [facility] Comment on above: Performed By: #### L [id number], [id number] ####Ethyl Blender: UNA ARCE ([phone])[facility] [place] (SB[facility])[address] [place] [address] [place] MICROCYTES (PRESENCE) IN BLOOD BY LIGHT MICROSCOPY Slight Abnormal (none) [facility] Comment on above: Performed By: #### L [id number], [id number] ####Ethyl Blender: UNA ARCE ([phone])[facility] [place] ([facility])[address] [place] [address] [place] MONOCYTES (10*3/UL) IN BLOOD-CELLAVISION 0.7 10*3/uL Normal 0.0-0.9 [facility] Comment on above: Performed By: #### L [id number], [id number] ####Ethyl Blender: UNA MOHRCER ([phone])[facility] [place] ([facility])[address] [place] [address] [place] MONOCYTES TOTAL PER COUNTED LEUKOCYTES BY MANUAL COUNT 7 Normal [facility] Comment on above: Performed By: #### L [id number], [id number] ####Ethyl Blender: UNA MOHRCER ([id number])[facility] [place] ([facility])[address] [place] [address] [place] MONOCYTES/100 LEUKOCYTES IN BLOOD-LUCIANA 7 % Normal 5-[address] [facility] Comment on above: Performed By: #### L [id number], [id number] ####Ethyl Blender: UNA ARCE ([phone])[facility] [place] ([facility])[address] [place] [address] [place] MYELOCYTES COUNTED BY MANUAL COUNT Normal [facility] Comment on above: Performed By: #### L [id number], [id number] ####Ethyl Blender: UNA ARCE ([phone])[facility] [place] ([facility])[address] [place] [address] [place] NEUTROPHILS BAND FORM/100 LEUKOCYTES IN BLOOD-CELLAVISI 1 % High <=[address] [facility] Comment on above: Performed By: #### L [id number], [id number] ####Ethyl Blender: UNA ARCE ([phone])[facility] [place] ([facility])[address] [place] [address] [place] NEUTROPHILS TOTAL PER COUNTED LEUKOCYTES BY MANUAL COUNT [address] [facility] Comment on above: Performed By: #### L [id number], [id number] ####Ethyl Blender: UNA ARCE ([phone])[facility] [place] ([facility])[address] [place] [address] [place] NUCLEATED ERYTHROCYTES/100 LEUKOCTES IN BLOOD-CELLAVISION 1 % Normal 0-[address] [facility] Comment on above: Performed By: #### L [id number], [id number] ####Ethyl Blender: UNA ARCE ([phone])[facility] [place] ([facility])[address] [place] [address] [place] POIKILOCYTOSIS (PRESENCE) IN BLOOD BY LIGHT MICROSCOPY Slight Abnormal (none) [facility] Comment on above: Performed By: #### L [id number], [id number] ####Ethyl Blender: UNA ARCE ([phone])[facility] [place] ([facility])[address] [place] [address] [place] PROMYELOCYTES TOTAL PER COUNTED LEUKOCYTES BY MANUAL COUNT Normal [facility] Comment on above: Performed By: #### L [id number], [id number] ####Ethyl Blender: UNA ARCE ([phone])[facility] [place] ([facility])[address] [place] [address] [place] RBC MORPHOLOGY IN BLOOD abnormal Normal S [facility] Comment on above: Performed By: #### L [id number], [id number] ####Ethyl Blender: UNA ARCE ([phone])[facility] [place] ([facility])[address] [place] [address] [place] SEGMENTED NEUTROPHILS (10*3/UL) IN BLOOD-CELLAVISION 8.0 10*3/uL High 1.8-7.5 [facility] Comment on above: Performed By: #### L [id number], [id number] ####Ethyl Blender: UNA ARCE ([phone])[facility] [place] ([facility])[address] [place] [address] [place] SEGMENTED NEUTROPHILS/100 LEUKOCYTES-CE 77 % Normal 38-82 [facility] Comment on above: Performed By: #### L [id number], [id number] ####Ethyl Blender: UNA ARCE ([id number])[facility] [place] ([facility])[address] [place] [address] [place] STOMATOCYTES IN BLOOD BY LIGHT MICROSCOPY Slight Abnormal (none) [facility] Comment on above: Performed By: #### L [id number], [id number] ####Ethyl Blender: UNA ARCE ([phone])[facility] [place] ([facility])[address] [place] [address] [place] UNCLASSIFIED CELLS TOTAL PER COUNTED LEUKOCYTES BY MANUAL COUNT Normal [facility] Comment on above: Performed By: #### L [id number], [id number] ####Ethyl Blender: UNA ARCE ([phone])[facility] [place] ([facility])[address] [place] [address] [place] VARIANT LYMPHOCYTES TOTAL PER COUNTED LEUKOCYTES BY MANUAL COUNT Normal [facility] Comment on above: Performed By: #### L [id number], [id number] ####Ethyl Blender: UNA ARCE ([phone])[facility] [place] (SBHLAB)[address] Nursing Noteon 04-06-2025 Nursing Note Normal [facility] Nursing Note Transfused two pint of blood. No any allergic reaction seen.vital signs are within normal limits. Normal [facility] Progress Noteon 04-06-2025 Progress Note Normal [facility] Progress [facility] US Heart TransthoracicOrdere d By: Thomas Hinton on 04-06-2025 Ao Root Index 1.47 cm/m2 [facility] Work Phone: Aortic Root 3 cm [facility] Work Phone: Aortic valve Mean systole pressure gradient by US.doppler derived full Bernoulli 7 mmHg [facility] Work Phone: Aortic valve Orifice area by US 3.1 cm2 [facility] Work Phone: Aortic valve Peak systolic flow by US.doppler 1.3 m/s [facility] Work Phone: Ascending Aorta 3.1 cm [facility] Work Phone: Ascending Aorta Index 1.52 cm/m2 [facility] Work Phone: AV Area by Peak Velocity 1.5 cm2 [facility] Work Phone: AV Area by VTI 1.3 cm2 [facility] Work Phone: AV Peak Gradient 15 mmHg [facility] Work Phone: AV Peak Velocity 1.9 m/s [facility] Work Phone: AV Velocity Ratio 0.47 [facility] Work Phone: AV VTI 37.4 cm [facility] Work Phone: JULIET/BSA Peak Velocity 0.7 cm2/m2 [facility] Work Phone: JULIET/BSA VTI 0.6 cm2/m2 [facility] Work Phone: E/E' Lateral 23 [facility] Work Phone: Est. RA Pressure 15 mmHg [facility] Work Phone: Fractional Shortening 2D 8 % 28 - 44 % [facility] Work Phone: Interpretation and review of laboratory results Abnormal [facility] Work Phone: IVSd 1.1 cm Abnormal 0.6 - 1.0 cm [facility] Work Phone: LA Diameter 4 cm [facility] Work Phone: LA Size Index 1.96 cm/m2 [facility] Work Phone: LA Volume 4C 56 mL 18 - 58 mL [facility] Work Phone: LA Volume Index 4C 27 mL/m2 16 - 34 mL/m2 [facility] Work Phone: LA/AO Root Ratio 1.33 [facility] Work Phone: Left ventricular Ejection fraction by US.2D+Calculated by biplane method of disks 22 % Abnormal 55 - 100 % [facility] Work Phone: LV E' Lateral Velocity 5 cm/s [facility] Work Phone: LV EDV A2C 331 mL [facility] Work Phone: LV EDV A4C 293 mL [facility] Work Phone: LV EDV BP 315 mL Abnormal 67 - 155 mL [facility] Work Phone: LV EDV Index A2C 162 mL/m2 [facility] Work Phone: LV EDV Index A4C 144 mL/m2 [facility] Work Phone: LV EDV Index BP 154 mL/m2 [facility] Work Phone: LV Ejection Fraction A2C 26 % [facility] Work Phone: LV Ejection Fraction A4C 22 % [facility] Work Phone: LV ESV A2C 245 mL [facility] Work Phone: LV ESV A4C 229 mL [facility] Work Phone: LV ESV BP 247 mL Abnormal 22 - 58 mL [facility] Work Phone: LV ESV Index A2C 120 mL/m2 [facility] Work Phone: LV ESV Index A4C 112 mL/m2 [facility] Work Phone: LV ESV Index BP 121 mL/m2 [facility] Work Phone: LV Mass 2D 246.9 g Abnormal 88 - 224 g [facility] Work Phone: LV Mass 2D Index 121 g/m2 Abnormal 49 - 115 g/m2 [facility] Work Phone: LV RWT Ratio 0.3 [facility] Work Phone: LVIDd 6 cm Abnormal 4.2 - 5.9 cm [facility] Work Phone: LVIDd Index 2.94 cm/m2 [facility] Work Phone: LVIDs 5.5 cm [facility] Work Phone: LVIDs Index 2.7 cm/m2 [facility] Work Phone: LVOT Cardiac Output 3.2 liter/minute [facility] Work Phone: LVOT Diameter 2 cm [facility] Work Phone: LVOT Mean Gradient 2 mmHg [facility] Work Phone: LVOT Peak Gradient 3 mmHg [facility] Work Phone: LVOT Peak Velocity 0.9 m/s [facility] Work Phone: LVOT Stroke Volume Index 23.2 mL/m2 [facility] Work Phone: LVOT SV 47.4 ml [facility] Work Phone: LVOT VTI 15.1 cm [facility] Work Phone: LVOT:AV VTI Index 0.4 [facility] Work Phone: LVPWd 0.9 cm 0.6 - 1.0 cm [facility] Work Phone: MR VTI 139.2 cm [facility] Work Phone: MV A Velocity 1.12 m/s [facility] Work Phone: MV E Velocity 1.15 m/s [facility] Work Phone: MV E Wave Deceleration Time 179.2 ms [facility] Work Phone: MV E/A 1.03 [facility] Work Phone: MV Nyquist Velocity 36 cm/s [facility] Work Phone: MV Regurg Velocity PISA 4.6 m/s [facility] Work Phone: RA Area 4C 34.5 mL [facility] Work Phone: RV Free Wall Peak S' 13 cm/s [facility] Work Phone: RVSP 66 mmHg [facility] Work Phone: TAPSE 2.4 cm 1.7 cm [facility] Work Phone: TR Max Velocity 3.58 m/s [facility] Work Phone: TR Peak Gradient 51 mmHg [facility] Work Phone: [facility] Work Phone: US Heart Transthoracicon CV CPACS BASIC METABOLIC PANELon 03-10 Anion gap [Moles/Vol] 8 mmol/L Normal 3-13 [facility] Comment on above: Performed By: #### L [id number], LAB15, [id number], LAB20, LAB69, [id number], [id number], LAB89 ####Ethyl Blender: UNA ARCE ([phone])[facility] (SBHLAB)[address] Calcium [Mass/Vol] 8.4 mg/dL Low 8.8-10.0 [facility] Comment on above: Performed By: #### L AB67, LAB15, [id number], LAB20, LAB69, [id number], [id number], LAB89 ####Ethyl Blender: UNA ARCE ([phone])[facility] (SBHLAB)[address] Chloride [Moles/Vol] 105 mmol/L Normal 98-107 [facility] Comment on above: Performed By: #### L AB67, LAB15, [id number], LAB20, LAB69, [id number], [id number], LAB89 ####Ethyl Blender: UNA ARCE ([id number])[facility] ([facility])[address] [place] [address] [place] CO2 [Moles/Vol] 27 mmol/L Normal 23-31 [facility] Comment on above: Performed By: #### L AB67, LAB15, [id number], LAB20, LAB69, [id number], [id number], LAB89 ####Ethyl Blender: UNA ARCE ([phone])[facility] (SBHLAB)[address] [place] [address] [place] Creatinine [Mass/Vol] 1.46 mg/dL High 0.72-1.25 [facility] Comment on above: Performed By: #### L AB67, LAB15, FWU199, LAB20, LAB69, [id number], [id number], LAB89 ####Ethyl Blender: UNA ARCE ([phone])[facility] (SBHLAB)[address] [place] [address] [place] GLOMERULAR FILTRATION RATE ML/MIN/1.73 SQ M.PREDICTED 45.7 mL/min/1.73m*2 Low >60.0 [facility] Comment on above: Result Comment: Calc ulation based on the Chronic Kidney Disease Epidemiology Collaboration (CKD-EPI) equation refit without adjustment for race Performed By: #### L AB67, LAB15, IBS006, LAB20, LAB69, [id number], [id number], LAB89 ####Ethyl Blender: UNA ARCE ([phone])[facility] (SBHLAB)[address] [place] [address] Glucose [Mass/Vol] 108 mg/dL Normal 82-115 [facility] Comment on above: Performed By: #### L AB67, LAB15, TFN251, LAB20, LAB69, HFV710, [id number], LAB89 ####Ethyl Blender: UNA ARCE ([phone])[facility] (SBHLAB)[address] [place] [address] Potassium [Moles/Vol] 4.5 mmol/L Normal 3.5-5.1 [facility] Comment on above: Result Comment: [facility] potassium values may be up to 0.5 mmol/L lower than serum values. Performed By: #### L AB67, LAB15, MAU841, LAB20, LAB69, BUN275, [id number], LAB89 ####Ethyl Blender: UNA ARCE ([phone])[facility] (SBHLAB)[address] [place] [address] [place] Sodium [Moles/Vol] 140 mmol/L Normal 136-145 [facility] Comment on above: Performed By: #### L AB67, LAB15, AWG241, LAB20, LAB69, UPY190, [id number], LAB89 ####Ethyl Blender: UNA ARCE ([phone])[facility] (HLAB)[address] Urea nitrogen [Mass/Vol] 24 mg/dL High 9-23 [facility] Comment on above: Performed By: #### L AB67, LAB15, LNV931, LAB20, LAB69, NPA163, [id number], LAB89 ####Ethyl Blender: UNA ARCE ([phone])[facility] BLOOD TYPE AND SCREEN GELon 04-05-2025 ABO GROUPING A Normal [facility] Comment on above: Performed By: #### L [id number] ####Ethyl Blender: UNA ARCE ([phone])[facility] BLOOD BANK ([facility])[address] RH TYPE IN BLOOD Negative Normal [facility] Comment on above: Performed By: #### L AB276 ####Ethyl Blender: UNA ARCE ([phone])[facility] BLOOD [facility] ([facility])[address] CBC WITH AUTO DIFFERENTIALon 04-05-2025 Erythrocyte distribution width (RBC) [Ratio] 19.9 % High 11.5-15.0 [facility] Comment on above: Performed By: #### L AB296, [id number], [id number] ####Ethyl Blender: UNA STAUFFERMELANIE ([phone])[facility] ([facility])[address] [place] [address] Hematocrit (Bld) [Volume fraction] 20.7 % Low 40.0-52.0 [facility] Comment on above: Performed By: #### L AB296, [id number], [id number] ####Ethyl Blender: UNA ARCE ([phone])[facility] Hemoglobin (Bld) [Mass/Vol] 5.5 g/dL Critically low 13.0-18.0 [facility] Comment on above: Performed By: #### L AB296, [id number], [id number] ####Ethyl Blender: UNA ARCE ([phone])[facility] MCH (RBC) [Entitic mass] 19.4 pg Low 26.0-34.0 [facility] Comment on above: Performed By: #### Gilbert AB296, [id number], [id number] ####Ethyl Blender: UNA ARCE ([phone])[facility] (SBHLAB)[address] MCHC 26.6 % Low 30.5-36.0 [facility] Comment on above: Performed By: #### Gilbert AB296, [id number], [id number] ####Ethyl Blender: UNA ARCE ([phone])[facility] [place] (SBHLAB)[address] MCV (RBC) [Entitic vol] 73.1 fL Low 77.0-99.0 S [facility] Comment on above: Performed By: #### Gilbert AB296, [id number], [id number] ####Ethyl Blender: UNA ARCE ([phone])[facility] [place] (SBHLAB)[address] Platelet mean volume (Bld) [Entitic vol] 9.4 fL Normal 9.0-12.7 [facility] Comment on above: Performed By: #### Gilbert AB296, [id number], [id number] ####Ethyl Blender: UNA ARCE ([phone])[facility] (SBHLAB)[address] Platelets (Bld) [#/Vol] 358 10*3/uL Normal 140-440 [facility] Comment on above: Performed By: #### L AB296, [id number], [id number] ####Ethyl Blender: UNA ARCE ([phone])[facility] (SB[facility])[address] RBC (Bld) [#/Vol] 2.83 10*6/uL Low 4.40-5.90 [facility] Comment on above: Performed By: #### L AB296, [id number], [id number] ####Ethyl Blender: UNA ARCE ([phone])[facility] [place] (SB[facility])[address] WBC (Bld) [#/Vol] 10.0 10*3/uL Normal 3.6-10.[address] [facility] Comment on above: Performed By: #### L AB296, [id number], [id number] ####Ethyl Blender: UNA ARCE ([phone])[facility] (SB[facility])[address] ED Provider Noteon ED Provider Note Normal [facility] FERRITINon 04-05-2025 Ferritin [Mass/Vol] 19 ng/mL Low 22-[address] [facility] Comment on above: Result Comment: YARELI [place] COMMENTS:Ferritin levels below 10 ng/mL have been reported as indicative of iron deficiency anemia. Performed By: #### L [id number], LAB18, LAB68 ####Ethyl Blender: UNA ARCE ([phone])[facility] (SB[facility])[address] FOLATEon 04-05-2025 FOLATE RESULT 13.7 ng/mL Normal 7.0-31.4 [facility] Comment on above: Performed By: #### L AB67, LAB15, FKM671, LAB20, LAB69, THO545, [id number], LAB89 ####Ethyl Blender: UNA ARCE ([phone])[facility] (SBHLAB)[address] HAPTOGLOBINon 04-05-2025 HAPTOGLOBIN 226 mg/dL Normal 50-[address] [facility] Comment on above: Performed By: #### L AB67, LAB15, DPQ793, LAB20, LAB69, UDU333, [id number], LAB89 ####Ethyl Blender: UNA ARCE ([phone])[facility] (SBHL[facility])[address] HEPATIC FUNCTION PANELon Albumin [Mass/Vol] 2.7 g/dL Low 3.4-4.8 [facility] Comment on above: Performed By: #### L AB67, LAB15, SSB926, LAB20, LAB69, FBT276, [id number], LAB89 ####Ethyl Blender: UNA ARCE ([phone])[facility] (HLAB)[address] ALP [Catalytic activity/Vol] 65 U/L Normal 40-150 [facility] Comment on above: Performed By: #### L AB67, LAB15, PSI566, LAB20, LAB69, VDU188, [id number], LAB89 ####Ethyl Blender: UNA ARCE ([phone])[facility] ([facility])[address] ALT [Catalytic activity/Vol] 7 U/L Normal <40 [facility] Comment on above: Performed By: #### L AB67, LAB15, PHT696, LAB20, LAB69, YQJ692, [id number], LAB89 ####Ethyl Blender: UNA ARCE ([phone])[facility] ([facility])[address] AST [Catalytic activity/Vol] 22 U/L Normal <34 [facility] Comment on above: Performed By: #### L AB67, LAB15, YNK815, LAB20, LAB69, DNN444, [id number], LAB89 ####Ethyl Blender: UNA ARCE ([phone])[facility] ([facility])[address] Bilirubin [Mass/Vol] 0.5 mg/dL Normal <1.2 [facility] Comment on above: Performed By: #### L AB67, LAB15, ITN160, LAB20, LAB69, FYX531, [id number], LAB89 ####Ethyl Blender: UNA ARCE ([phone])[facility] ([facility])[address] Bilirubin.indirect [Mass/Vol] 0.2 mg/dL Normal <0.5 [facility] Comment on above: Performed By: #### L AB67, LAB15, YER783, LAB20, LAB69, APC286, [id number], LAB89 ####Ethyl Blender: UNA ARCE ([id number])[facility] ([facility])[address] [place] [address] Protein [Mass/Vol] 6.4 g/dL Normal 6.4-8.3 [facility] Comment on above: Result Comment: Seru m protein values are higher than plasma values. Samples from recumbent persons are lower by up to 0.5 g/dL as compared to ambulatory persons. After 60 years values are lower by up to 0.2 g/dL. Performed By: #### L AB67, LAB15, LZE333, LAB20, LAB69, ZHQ514, [id number], LAB89 ####Ethyl Blender: UNA ARCE ([id number])[facility] ([facility])[address] [place] [address] HIGH SENSITIVITY TROPONIN, S ERIAL BASELINEon 04-05-2025 TROPONIN HS SERIAL BASELINE 29 ng/L Normal <=35 [facility] Comment on above: Result Comment: In i ndividuals presenting with symptoms > 2h, a baseline troponin <= 5 ng/L suggests acutecardiac injury is unlikely and further serial testing is generally not indicated. Performed By: #### L [id number] ####Ethyl Blender: UAN ARCE ([phone])[facility] ([facility])[address] [place] [address] TROPONIN HS SERIAL BASELINE 30 ng/L Normal <=35 [facility] Comment on above: Result Comment: In i ndividuals presenting with symptoms > 2h, a baseline troponin <= 5 ng/L suggests acutecardiac injury is unlikely and further serial testing is generally not indicated. Performed By: #### L AB67, LAB15, MUV180, LAB20, LAB69, ZFM983, [id number], LAB89 ####Ethyl Blender: UNA ARCE ([phone])[facility] ([facility])[address] HIGH SENSITIVITY TROPONIN, S ERIAL, SECOND TESTon 04-05-2025 2H TROPONIN HS (SERIAL 2ND TROPONIN) 28 ng/L Normal <=35 [facility] Comment on above: Result Comment: 2h t roponin (2nd troponin) samples collected between 1h 40 min and 2h and 20 min of the baseline collection time can be utilized to interpret delta troponins as per [facility] algorithms. Samples collected outside this timeframe need to be interpreted clinically.Rising or falling troponin delta below 2 ng/L as compared to baseline value suggests thatacute cardiac injury is unlikely. Performed By: #### L [id number], LAB18, LAB68 ####Ethyl Blender: UNA ARCE ([phone])[facility] (SBHLAB)[address] LIPID PANELon 04-05-2025 Cholesterol [Mass/Vol] 89 mg/dL Normal <200 [facility] Comment on above: Performed By: #### L [id number], LAB18, LAB68 ####Ethyl Blender: UNA ARCE ([id number])[facility] (SB[facility])[address] Cholesterol in HDL [Mass/Vol] 29 mg/dL Low >=60 [facility] Comment on above: Performed By: #### L [id number], LAB18, LAB68 ####Ethyl Blender: UNA ARCE ([phone])[facility] (SBHLAB)[address] Cholesterol.total/Choles terol in HDL [Mass ratio] 3 {ratio} Normal [facility] Comment on above: Result Comment: Ref Range:< 3 Low Risk for CHD3-6 Mod Risk for CHD> 6 High Risk for CHD Performed By: #### L [id number], LAB18, LAB68 ####Ethyl Blender: UNA ARCE ([id number])[facility] (SBHLAB)[address] LOW DENSITY LIPOPROTEIN 48 mg/dL Normal 0-<100 [facility] Comment on above: Performed By: #### L [id number], LAB18, LAB68 ####Ethyl Blender: UNA ARCE ([id number])[facility] [place] (SBHLAB)155 61 [address] NON-HDL CHOLESTEROL, CALCULATED 60 Normal <130 [facility] Comment on above: Performed By: #### L [id number], [id number], LAB68 ####Ethyl Blender: UNA ARCE ([phone])[facility] [place] ([facility])[address] Triglyceride [Mass/Vol] 60 mg/dL Normal <150 [facility] Comment on above: Performed By: #### L [id number], [id number], LAB68 ####Ethyl Blender: UNA ARCE ([phone])[facility] ([facility] VERY LOW DENSITY LIPOPROTEIN, CALCULATED 12 mg/dL Normal <=30 [facility] Comment on above: Performed By: #### Gilbert [id number], [id number], LAB68 ####Ethyl Blender: UNA ARCE ([phone])[facility] [place] ([facility])[address] MANUAL DIFFERENTIAL (CELLAVI BANDAR)on 04-05-2025 ANISOCYTOSIS PRESENCE IN BLOOD BY LIGHT MICROSCOPY Moderate Abnormal (none) [facility] Comment on above: Performed By: #### Gilbert [id number], [id number], [id number] ####Ethyl Blender: UNA ARCE ([phone])[facility] [place] ([facility])[address] BAND NEUTROPHILS TOTAL PER COUNTED LEUKOCYTES BY MANUAL COUNT [facility] Comment on above: Performed By: #### L [id number], [id number], [id number] ####Ethyl Blender: UNA ARCE ([phone])[facility] [place] ([facility])[address] BASOPHILS TOTAL PER COUNTED LEUKOCYTES BY MANUAL COUNT Normal [facility] Comment on above: Performed By: #### L [id number], [id number], [id number] ####Ethyl Blender: UNA STAUFFERMELANIE ([phone])[facility] [place] ([facility])[address] BLASTS TOTAL PER COUNTED LEUKOCYTES BY MANUAL COUNT Normal [facility] Comment on above: Performed By: #### L [id number], [id number], [id number] ####Ethyl Blender: UNA BERMUDEZPEDRO ([id number])[facility] [place] (SBHLAB)[address] EOSINOPHILS TOTAL PER COUNTED LEUKOCYTES BY MANUAL COUNT [facility] Comment on above: Performed By: #### L [id number], [id number], [id number] ####Ethyl Blender: UNA BERMUDEZPEDRO ([phone])[facility] [place] (SB[facility])155 [place] [address] [place] HYPOCHROMIA (PRESENCE) IN BLOOD BY LIGHT MICROSCOPY Moderate Abnormal (none) [facility] Comment on above: Performed By: #### L [id number], [id number], [id number] ####Ethyl Blender: UNA BERMUDEZPEDRO ([phone])[facility] [place] (SB[facility])[address] [place] [address] [place] LYMPHOCYTES (10*3/UL) IN BLOOD-CELLAVISION 1.4 10*3/uL Normal 1.0-4.3 [facility] Comment on above: Performed By: #### L [id number], [id number], [id number] ####Ethyl Blender: UNA ARCE ([id number])[facility] [place] (SB[facility])155 [place] [address] [place] LYMPHOCYTES TOTAL PER COUNTED LEUKOCYTES BY MANUAL COUNT 15 Normal [facility] Comment on above: Performed By: #### L [id number], [id number], [id number] ####Ethyl Blender: UNA ARCE ([phone])[facility] [place] (SB[facility])[address] [place] [address] [place] LYMPHOCYTES/100 LEUKOCYTES IN BLOOD-CELLAVISION 14 % Low 15-[address] [facility] Comment on above: Performed By: #### L [id number], [id number], [id number] ####Ethyl Blender: UNA ARCE ([phone])[facility] [place] ([facility])[address] [place] [address] [place] METAMYELOCYTES TOTAL PER COUNTED LEUKOCYTES BY MANUAL COUNT Normal [facility] Comment on above: Performed By: #### L [id number], [id number], [id number] ####Ethyl Blender: UNA ARCE ([phone])[facility] [place] ([facility])[address] [place] [address] [place] MICROCYTES (PRESENCE) IN BLOOD BY LIGHT MICROSCOPY Slight Abnormal (none) [facility] Comment on above: Performed By: #### L [id number], [id number], [id number] ####Ethyl Blender: UNA ARCE ([phone])[facility] [place] (SB[facility])[address] [place] [address] [place] MONOCYTES (10*3/UL) IN BLOOD-CELLAVISION 1.3 10*3/uL High 0.0-0.[address] [facility] Comment on above: Performed By: #### L [id number], [id number], [id number] ####Ethyl Blender: UNA ARCE ([phone])[facility] [place] (SB[facility])155 [place] [address] [place] MONOCYTES TOTAL PER COUNTED LEUKOCYTES BY MANUAL COUNT [address] [facility] Comment on above: Performed By: #### L [id number], [id number], [id number] ####Ethyl Blender: UNA ARCE ([id number])[facility] [place] (SB[facility])[address] [place] [address] [place] MONOCYTES/100 LEUKOCYTES IN BLOOD-LUCIANA 13 % Normal 5-[address] [facility] Comment on above: Performed By: #### L AB296, [id number], [id number] ####Ethyl Blender: UNA ARCE ([id number])[facility] [place] (SBHLAB)[address] [place] [address] [place] MYELOCYTES COUNTED BY MANUAL COUNT Normal [facility] Comment on above: Performed By: #### L AB296, [id number], [id number] ####Ethyl Blender: UNA ARCE ([id number])[facility] [place] (SB[facility])[address] [place] [address] [place] NEUTROPHILS TOTAL PER COUNTED LEUKOCYTES BY MANUAL COUNT 76 [facility] Comment on above: Performed By: #### L AB296, [id number], [id number] ####Ethyl Blender: UNA ARCE ([id number])[facility] [place] (SB[facility])[address] [place] [address] [place] NUCLEATED ERYTHROCYTES/100 LEUKOCTES IN BLOOD-CELLAVISION 1 % Normal 0-[address] [facility] Comment on above: Performed By: #### L AB296, [id number], [id number] ####Ethyl Blender: UNA ARCE ([id number])[facility] [place] (SB[facility])155 [place] [address] [place] OVALOCYTES PRESENCE IN BLOOD BY LIGHT MICROSCOPY Slight Abnormal (none) [facility] Comment on above: Performed By: #### L [id number], [id number], [id number] ####Ethyl Blender: UNA ARCE ([id number])[facility] [place] (SB[facility])[address] [place] [address] [place] POIKILOCYTOSIS (PRESENCE) IN BLOOD BY LIGHT MICROSCOPY Moderate Abnormal (none) [facility] Comment on above: Performed By: #### L AB296, [id number], [id number] ####Ethyl Blender: UNA ARCE ([phone])[facility] [place] (SB[facility])[address] [place] [address] [place] PROMYELOCYTES TOTAL PER COUNTED LEUKOCYTES BY MANUAL COUNT Normal [facility] Comment on above: Performed By: #### L [id number], [id number], [id number] ####Ethyl Blender: UNA ARCE ([phone])[facility] [place] (SBHLAB)[address] [place] [address] [place] RBC MORPHOLOGY IN BLOOD abnormal Normal [facility] Comment on above: Performed By: #### L [id number], [id number], [id number] ####Ethyl Blender: UNA ARCE ([id number])[facility] (SBHL[facility])[address] [place] [address] [place] SEGMENTED NEUTROPHILS (10*3/UL) IN BLOOD-CELLAVISION 7.2 10*3/uL Normal 1.8-7.5 [facility] Comment on above: Performed By: #### L [id number], [id number], [id number] ####Ethyl Blender: UNA ARCE ([id number])[facility] BASHIRN (SBHLAB)[address] [place] [address] [place] SEGMENTED NEUTROPHILS/100 LEUKOCYTES-CE 72 % Normal 38-82 [facility] Comment on above: Performed By: #### L [id number], [id number], [id number] ####Ethyl Blender: UNA ARCE ([id number])[facility] [place] (SBHLAB)[address] [place] [address] [place] STOMATOCYTES IN BLOOD BY LIGHT MICROSCOPY Moderate Abnormal (none) [facility] Comment on above: Performed By: #### L AB296, [id number], [id number] ####Ethyl Blender: UNA ARCE ([id number])[facility] (SBHLAB)[address] [place] [address] [place] TARGET CELLS IN BLOOD BY LIGHT MICROSCOPY Slight Abnormal (none) [facility] Comment on above: Performed By: #### L [id number], [id number], [id number] ####Ethyl Blender: UNA ARCE ([phone])[facility] (SBHLAB)[address] [place] [address] [place] UNCLASSIFIED CELLS TOTAL PER COUNTED LEUKOCYTES BY MANUAL COUNT Normal [facility] Comment on above: Performed By: #### L [id number], [id number], [id number] ####Ethyl Blender: UNA ARCE ([phone])[facility] (SBHLAB)[address] VARIANT LYMPHOCYTES TOTAL PER COUNTED LEUKOCYTES BY MANUAL COUNT Normal [facility] Comment on above: Performed By: #### L AB296, [id number], [id number] ####Ethyl Blender: UNA ARCE ([phone])[facility] (SBHLAB)[address] NT PRO BNPon 04-05-2025 Natriuretic peptide B (Bld) [Mass/Vol] 8438 pg/mL High <450 [facility] Comment on above: Performed By: #### L AB67, LAB15, [id number], LAB20, LAB69, [id number], [id number], LAB89 ####Ethyl Blender: UNA ARCE ([id number])[facility] [place] (SBHLAB)[address] RETICULOCYTESon 04-05-2025 Reticulocytes/100 RBC (Bld) 2.31 % Normal [facility] Comment on above: Result Comment: Newb orn < 5%Adults 0.4 - 2.0% Performed By: #### L [id number], [id number], [id number] ####Ethyl Blender: UNA ARCE ([id number])[facility] BASHIRMariosl (SBHLAB)[address] [place] [address] [place] THYROID STIMULATING HORMONEo n 04-05-2025 THYROID STIMULATING HORMONE 10.19 uIU/mL High 0.35-4.94 [facility] Comment on above: Performed By: #### L AB67, LAB15, [id number], LAB20, LAB69, [id number], [id number], LAB89 ####Ethyl Blender: UNA ARCE ([phone])[facility] (SBHLAB)[address] VITAMIN B12on 04-05-2025 Cobalamin (Vitamin B12) [Mass/Vol] 817 pg/mL High 213-816 [facility] Comment on above: Performed By: #### L AB67, LAB15, [id number], LAB20, LAB69, [id number], [id number], LAB89 ####Ethyl Blender: UNA ARCE ([phone])[facility] ([facility])[address] [place] [address] Vital Signs Date Time Vital Sign Value Performing Clinician Loulou nieto 06-22-2025 02:11-0400 Diastolic blood pressure 57 mm[Hg] Sagar Gombash DO Work Phone: [employer] 06-22-2025 02:11-0400 Heart rate 54 /min Sagar [employer] DO Work Phone: [employer] 06-22-2025 02:11-0400 Respiratory rate 18 /min Sagar VeriTranash DO Work Phone: [employer] 06-22-2025 02:11-0400 SaO2% (BldA) [Mass fraction] 97 % Sagar VeriTranash DO Work Phone: [employer] 06-22-2025 02:11-0400 Systolic blood pressure 105 mm[Hg] Sagar Gombash DO Work Phone: [employer] 06-22-2025 00:31-0400 Body temperature 98.2 [degF] Sagar [employer] DO Work Phone: [employer] 06-17-2025 10:47-0400 SaO2% (BldA) [Mass fraction] 95 % Eber Hess MD Work Phone: [employer] 06-17-2025 10:27-0400 Body height 174 cm Eber Hess MD Work Phone: [employer] 06-17-2025 10:27-0400 Body mass index (BMI) [Ratio] 27.3 kg/m2 Eber Hess MD Work Phone: [employer] 06-17-2025 10:27-0400 Body weight 82.64 kg Eber Hess MD Work Phone: [employer] 06-17-2025 10:27-0400 Diastolic blood pressure 58 mm[Hg] Eber Hess MD Work Phone: [facility] 06-17-2025 10:27-0400 Heart rate 70 /min Eber Hess MD Work Phone: [facility] 06-17-2025 10:27-0400 Systolic blood pressure 110 mm[Hg] Eber Hess MD Work Phone: [facility] 05-03-2025 10:13-0400 Body height 174 cm Alejandro Swiftick APR N - ASSISTANT RESEARCH SCIENTIST Work Phone: [facility] 05-03-2025 10:13-0400 Body mass index (BMI) [Ratio] 28.09 kg/m2 Alejandro Jenifferick PROGRAM THERAPIST - ASSISTANT RESEARCH SCIENTIST Work Phone: [facility] 05-03-2025 10:13-0400 Body weight 85.05 kg Alejandro Swiftick APR N - ASSISTANT RESEARCH SCIENTIST Work Phone: [facility] 05-03-2025 10:13-0400 Diastolic blood pressure 62 mm[Hg] Alejandro Swiftick PROGRAM THERAPIST - ASSISTANT RESEARCH SCIENTIST Work Phone: [facility] 05-03-2025 10:13-0400 Heart rate 66 /min Alejandro Swiftick APR N - ASSISTANT RESEARCH SCIENTIST Work Phone: [facility] 05-03-2025 10:13-0400 Systolic blood pressure 106 mm[Hg] Alejandro Swiftick PROGRAM THERAPIST - ASSISTANT RESEARCH SCIENTIST Work Phone: [facility] 04-17-2025 08:40-0400 Diastolic blood pressure 50 mm[Hg] Rowena Eliasffey DO Work Phone: [facility] 04-17-2025 08:40-0400 Heart rate 62 /min Rowena Eliasffey DO Work Phone: [facility] 04-17-2025 08:40-0400 Respiratory rate 17 /min Rowena Eliasffey DO Work Phone: [facility] 04-17-2025 08:40-0400 SaO2% (BldA) [Mass fraction] 96 % Rowena Aguilar DO Work Phone: [facility] 04-17-2025 08:40-0400 Systolic blood pressure 104 mm[Hg] [facility] 04-17-2025 05:00-0400 Body mass index (BMI) [Ratio] 31.14 kg/m2 Rowena Aguilar DO [facility] 04-17-2025 05:00-0400 Body weight 92.9 kg Rowena Aguilar DO Work Phone: [facility] 04-17-2025 01:47-0400 Body temperature 97.2 [degF] Rowena Aguilar DO Work Phone: [facility] 04-16-2025 16:41-0400 Body height 172.7 cm Rowena Aguilar DO Work Phone: [facility] 04-13-2025 04:37-0400 SaO2% (BldA) [Mass fraction] 95.1 % Rowena Aguilar DO Work Phone: [facility] 04-08-2025 21:01-0400 SaO2% (BldA) [Mass fraction] 97 % Rowena Aguilar DO Work Phone: [facility] 04-08-2025 17:02-0400 SaO2% (BldA) [Mass fraction] 96.1 % Rowena Aguilar DO Work Phone: [facility] Encounters Encounter Date Encounter Type Care Provider Facility Start: 07-07-2025 ambulatory Spencer Depdebo OLS Facili ty:[facility] Start: 07-06-2025 End: 07-07-2025 Telephone encounter Eber Hess MD Work Phone: [facility] Start: 07-05-2025 ambulatory Spencer Depdebo OLS Facili ty:[facility] Start: 06-28-2025 ambulatory Spencer Depdebo OLS Facili ty:[facility] Start: 06-24-2025 End: 06-24-2025 Documentation procedure Yamilka Holloway PROGRAM THERAPIST - ASSISTANT RESEARCH SCIENTIST Work Phone: [facility] [place] Start: 06-24-2025 End: 06-25-2025 Telephone encounter Eber Hess MD Work Phone: [facility] [employer] Comment on above: Release of Informati on (BMP, vitals, and medication notes ) Start: 06-24-2025 [facility] Facility :[facility] Start: 06-21-2025 End: 06-22-2025 Emergency department patient visit Sagar Gilliam DO Work Phone: [facility] Comment on above: Anemia due to chroni c kidney disease, unspecified CKD stage (Primary Dx) Start: 06-21-2025 [facility] Facility :[facility] Start: 06-17-2025 End: 06-17-2025 [facility] Start: 06-17-2025 End: 06-17-2025 ambulatory [facility] Start: 06-17-2025 End: 06-17-2025 Office outpatient visit 40 minutes Eber Hess MD Work Phone: [facility] Comment on above: Chronic systolic hea rt failure (HCC) (Primary Dx) Start: 05-06-2025 End: 05-12-2025 Home visit new pt unstabl/signif new prob 75 min Yamilka Holloway PROGRAM THERAPIST - ASSISTANT RESEARCH SCIENTIST Work Phone: [facility] [place] Comment on above: Palliative care enco unter (Primary Dx); Pleural effusion; Acute on chronic heart failure, unspecified heart failure type (HCC); Debility Start: 05-03-2025 End: 05-03-2025 ambulatory ALEJANDRO QUEEN [facility] Start: 05-03-2025 End: 05-03-2025 Office outpatient visit 25 minutes Alejandro Queen PROGRAM THERAPIST - ASSISTANT RESEARCH SCIENTIST Work Phone: [facility] Cardiology Levon Anaya Comment on above: Chronic systolic hea rt failure (HCC) (Primary Dx); 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; Pleural effusion; Acute kidney injury superimposed on chronic kidney disease (HCC) (HCC); 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 chronic kidney disease (HCC); PAC (premature atrial contraction); Abnormal CAT scan Start: 04-19-2025 End: 04-19-2025 Orders Only Katie Engle RN [facility] [place] Comment on above: Acute congestive hea rt failure, unspecified heart failure type (HCC) (Primary Dx) Start: 04-05-2025 End: 04-17-2025 Evaluation and management of inpatient Rowena Aguilar DO Work Phone: [facility] Cardiac Progressive Care Unit PCU 2E Start: 11-07-2020 End: 11-07-2020 Discharged [facility] Procedures Date Procedure Procedure Detail Performing Clinician [...] on above: Performed By: #### L [id number] ####Ethyl Blender: UNA NAVARRO ([phone])[facility] ([facility])[address] Start: 06-21-2025 Basic metabolic pane l calcium total Alannah D'Lakhwinder PA-C Work Phone: Start: 06-21-2025 Blood typing serologic abo Alannah D'Lakhwinder PA-C Work Phone: Start: 06-21-2025 Manual Differential panel - Blood Alannah D'Lakhwinder PA-C Work Phone: Start: 06-17-2025 Basic metabolic pane l calcium total Eber Hess MD Work Phone: Start: 06-17-2025 Follow-up visit SAGAR Packer OMDAT Start: 05-03-2025 Follow-up visit SAGAR Packer MARTINE Start: 04-17-2025 Comprehensive metabo lic panel Precious Torres MD Work Phone: Start: 04-17-2025 Manual Differential panel - Blood Precious Torres MD Work Phone: Start: 04-16-2025 Comprehensive metabo lic panel Precious Torres MD Work Phone: Start: 04-16-2025 Manual Differential panel - Blood Precious Torres MD Work Phone: Start: 04-15-2025 OXYGEN THERAPY Precious dawn MD Work Phone: Start: 04-15-2025 BEDSIDE SPIROMETRY Lizeth Farmer PROGRAM THERAPIST - ASSISTANT RESEARCH SCIENTIST Work Phone: Start: 04-15-2025 Blood occult peroxid ase actv qual feces 1-3 spec Albaro Clara LUNA Work Phone: Start: 04-15-2025 Radiologic exam ches t single view Yesi Farmer PROGRAM THERAPIST - ASSISTANT RESEARCH SCIENTIST Work Phone: Start: 04-15-2025 Comprehensive metabo lic panel Precious Torres MD Work Phone: Start: 04-15-2025 Manual Differential panel - Blood Precious Torres MD Work Phone: Start: 04-14-2025 OXYGEN THERAPY Precious dawn MD Work Phone: Start: 04-14-2025 Thoracentesis needle /cath pleura w/imaging Yesi Farmer PROGRAM THERAPIST - ASSISTANT RESEARCH SCIENTIST Work Phone: Start: 04-14-2025 Comprehensive metabo lic panel Precious Torres MD Work Phone: Start: 04-14-2025 Manual Differential panel - Blood Precious Torres MD Work Phone: Start: 04-13-2025 OXYGEN THERAPY Precious dawn MD Work Phone: Start: 04-13-2025 Radiologic exam ches t single view Marian Casarez PROGRAM THERAPIST - [facility] Work Phone: Start: 04-13-2025 Ecg routine ecg w/le ast 12 lds trcg only w/o i&r Marian Casarez PROGRAM THERAPIST - [facility] Work Phone: Start: 04-13-2025 Blood gases any comb ination ph pco2 po2 co2 hco3 Yesi Marleny PROGRAM THERAPIST - [facility] Work Phone: Start: 04-13-2025 Comprehensive metabo lic [...] exam ches t single view Alejandro Queen PROGRAM THERAPIST - [facility] Work Phone: Start: 04-11-2025 OXYGEN THERAPY Precious [...] MD Work Phone: Start: 04-08-2025 OXYGEN THERAPY rPecious dawn MD Work Phone: Start: 04-08-2025 Comprehensive [...] Start: 04-05-2025 Compatibility each u nit electronic Myra Lauren DO Work Phone: Start: 04-05-2025 End: 04-06-2025 [...] Work Phone: Start: 04-05-2025 Antibody screen SAGAR Birdie FARLEY Comment on above: Performed By: #### L [id number] ####Ethyl Blender: UNA NAVARRO ([phone])[facility] ([facility])[address] Start: 04-05-2025 ABO and Rh group [...] ecg w/le ast 12 lds i&r only Roewna Aguilar DO Work Phone: Start: 04-05-2025 OXYGEN THERAPY Precious dawn MD Work Phone: Start: 04-05-2025 Lipid 1996 panel - S alexandrea or Plasma Katie Engle RN Plan of Treatment Date Care Activity Detail Author Start: 04-05-2030 Lipid panel [facility] Start: 06-21-2026 Creatinine measurement Creatinine Level [facility] Start: 06-21-2026 Potassium measurement Potassium Level [facility] Start: 06-17-2026 Creatinine measurement Creatinine Level [facility] Start: 06-17-2026 Potassium measurement Potassium Level [facility] Start: 04-17-2026 Creatinine measurement [facility] Start: 04-17-2026 Potassium measurement [facility] Start: 07-29-2026 Echocardiography Echocardiogram [facility] Start: 04-06-2026 [facility] Start: 11-03-2025 Depression Monitoring Depression Monitoring [facility] Start: 09-13-2025 End: 09-13-2025 Patient encounter procedure 09/13/2025 10:40 AM EST Office Visit [facility] [address] [place] [id number] Eber Hess MD [address] [place] [address] [facility] Start: 06-17-2025 End: 06-17-2025 Patient encounter procedure 06/17/2025 10:20 AM EDT Office Visit [facility] [address] [place] [phone] Eber Hess MD [address] [place] [address] [facility] Start: 05-18-2025 End: 05-18-2025 ambulatory [facility] Pulmonary and Sleep Medicine [facility] Start: 05-18-2025 End: 05-18-2025 Patient encounter procedure 05/18/2025 9:15 AM EDT Office Visit [facility] Pulmonary community health Sleep Medicine [facility] [address] [place] [address] Nelson Garcia MD [address] Liam [address] [place] [id number] [facility] Pulmonary and Sleep Medicine [facility] Start: 05-10-2025 COVID-19 Vaccine ( season) COVID-19 Vaccine ( season) [facility] Start: 05-10-2025 Influenza vaccination Influenza Vaccine (#1) [facility] Start: 05-10-2025 [facility] Start: 04-22-2025 End: 04-22-2025 ambulatory [facility] [place] Start: 04-22-2025 End: 04-22-2025 Patient encounter procedure 04/22/2025 10:00 AM EDT Office Visit [facility] [place] [address] [facility] [place] [address] [place] [address] Marian Casarez APRN - CNP [address] [facility] [address] [place], [place] [id number] [facility] [place] Start: 05-10-2024 COVID-19 Vaccine ( season) COVID-19 Vaccine ( season) [facility] Start: 05-10-2024 [facility] Start: 2011 RSV Immunization for Adults (1 - 1-dose 75+ series) RSV Immunization for Adults (1 - 1-dose 75+ series) [facility] Start: 2011 [facility] Start: 1986 Zoster Vaccines (1 of 2) Zoster Vaccines (1 of 2) [facility] Start: 1986 [facility] Start: 1955 DTaP/Tdap/Td Vaccines (1 - Tdap) DTaP/Tdap/Td Vaccines (1 - Tdap) [facility] Start: 1955 Pneumococcal Vaccine: 50+ Years (1 of 2 - PCV) Pneumococcal Vaccine: 50+ Years (1 of 2 - PCV) [facility] Start: 1955 [facility] Start: 1948 Depression Monitoring Depression Monitoring [facility] Start: 1948 [facility] Start: 1936 Medicare Annual Wellness (AWV) Medicare Annual Wellness (AWV) [facility] Start: 1936 [facility] Bedside spirometry [facility] Work Phone: End: 04-05-2025 Hemoglobin [Mass/volume] in Blood [facility] Work Phone: End: 04-05-2025 Hemoglobin.gastrointestina l.lower [Presence] in Stool by Immunoassay --1st specimen [facility] Work Phone: Immunizations Immunization Date Immunization Notes Care Provider Fa cility 12-05-2020 Covid (Moderna) [facility] Work Phone: 11-07-2020 Covlo (Moderna) Edyta Lemus [facility] Work Phone: 06-30-2020 influenza virus vaccine, unspecified formulation Katie Engle RN [facility] Payers Date Payer Category Payer Self-pay [id number] 2017 Blue Cross Blue Shie ld Managed Care - [facility] [id number] 2017 Medicare supplementa l policy (as second payer) [id number] 2017 Unknown [id number] 2001 Medicare [id number] 2001 Medicare [id number] Unknown [id number] Unknown [id number] Unknown [id number] Unknown [id number] Unknown [id number] Social History Date Type Detail Facility Tobacco smoking stat us DCIS Unknown if ever smoked [facility] Work Phone: Start: 1935 Sex Assigned At Male [facility] Work Phone: Start: 04-08-2025 End: 05-03-2025 Tobacco smoking status NHIS Never smoked tobacco [facility] Start: 04-08-2025 End: 05-03-2025 History of Social function [facility] Start: 04-08-2025 End: 05-03-2025 [facility] [employer] [facility] Has the [employer], or water [email or web address] threatened to shut off services in your home in past 12Mo No [facility] How often to you hav e a drink containing alcohol? Never [facility] How many standard drinks containing alcohol do you have on a typical day? [facility] (I/We) worried landon er (my/our) food would run out before (I/we) got money to buy more. Never true [facility] Start: 1935 Sex assigned at [facility] Start: 04-05-2025 Sex Male (finding) [facility] Start: 05-03-2025 End: 06-15-2025 Tobacco use and exposure Smokeless tobacco non-user [facility] Start: 06-15-2025 Tobacco smoking stat [facility] Ex-smoker [facility] History of tobacco use Current smoker [facility] History of tobacco use Cigarette Smoker [facility] Start: 06-17-2025 Alcoholic beverage intake Ex-drinker (finding) [facility] Goals Date Patient Goal Desired Activity /State Functional Status Date Assessment Result Facility 05-03-2025 Patient Health Questionnaire 2 item (PHQ- 2) [Reported] [facility] Clinical Notes 04-05-2025 to 07-07-2025 Telephone Encounter - Sia Ayala RN - 07/07/2025 12:46 PM EDTTelephone Encounter - Sia Ayala RN - 07/07/2025 12:46 PM EDTTelephone Encounter - Sia Ayala RN - 07/07/2025 8:47 AM EDT Note Date & Type Note Facility 07-07-2025 Telephone encounter Note Darby called back to verify the diuretic instructions; she had the Lasix written down, so I verified that it was actually torsemide. She verbalized understanding and was thankful for the call. [facility] 07-07-2025 Miscellaneous Notes Darby called back to verify the diuretic instructions; she had the Lasix written down, so I verified that it was actually torsemide. She verbalized understanding and was thankful for the call. Per Dr Hess "Ok to take etc 20 mg torsemide if weight gain, leg swelling or sob. Anemia - recommend followup with PCP and GI" I called and spoke to nurse Khushboo from [facility]-she took verbal order for torsemide and notes they are continuing to follow his anemia with hemograms; is occult stool was negative. She was thankful for the call back. Images from the original note were not included. Cr 1.9, K+ 3.7, hemoglobin 7.1 on 07/05/25. BP's mostly 100-110's/50/60's; one SBP outlier of 94, one outlier of 121. HR's 60-70's. Note from nursing: [facility] faxed 07/05/25 BMP, and CBC, and vitals. Records to be scanned to chart. Sharita from [facility] called o report weight gain. 07/03: #189, 07/04: #191, 07/06: #191.4, and today #191.6. He had labs recently and HG is 7.1. She is faxing his recent vitals and labs. We scheduled follow up with 09/13/25. Otherwise he is feeling fine. documented in this encounter [facility] 07-07-2025 Telephone encounter Note Per Dr Hess "Ok to take etc 20 mg torsemide if weight gain, leg swelling or sob. Anemia - recommend followup with PCP and GI" I called and spoke to Khushboo nurse from [facility]-she took verbal order for torsemide and notes they are continuing to follow his anemia with hemograms; is occult stool was negative. She was thankful for the call back. [facility] 07-06-2025 Telephone encounter Note Images from the original note were not included. Cr 1.9, K+ 3.7, hemoglobin 7.1 on 07/05/25. BP's mostly 100-110's/50/60's; one SBP outlier of 94, one outlier of 121. HR's 60-70's. Note from nursing: [facility] 07-06-[address] [facility] faxed 07/05/25 BMP, and CBC, and vitals. Records to be scanned to chart. [facility] 07-06-2025 Telephone encounter Note Sharita from [facility] called o report weight gain. 07/03: #189, 07/04: #191, 07/06: #191.4, and today #191.6. He had labs recently and HG is 7.1. She is faxing his recent vitals and labs. We scheduled follow up with 09/13/25. Otherwise he is feeling fine. [facility] 06-24-2025 History of Presen t illness Narrative Attempted to meet with pt. He no longer resides here. Facility uncertain where he has moved to. Message left on primary contacts number Bereket to return call to the palliative group at [phone] documented in this encounter [facility] 06-24-2025 Telephone encounter Note Per Dr Hess: "Would stop aldactone all together due to Cr 1.8 and low normal BP. Also stop hydralazine and see how bp is " I called and spoke to the Kylah madden at [facility] relaying note from Dr Hess. [...] likely give him an additional torsemide today. [facility] 06-24-[address] Hess: "Would stop aldactone all together due to Cr 1.8 and low normal BP. Also stop hydralazine and see how bp is " I called and spoke to the Kylah madden at [facility] relaying note from Dr Hess. [...] was 2.05 on 06/17/25. FYI: Went to [facility] ER on 06/21/25 for blood transfusion as HGB at facility was 6.9 when they checked it 06/21/25. Labs from [facility] Today: 06/24/25 BMP, blood pressure, pulse summary, and medication notes faxed from [facility]. Records scanned to Media. documented in this encounter [facility] 06-24-2025 Telephone encounter Note Images from [...] was 2.05 on 06/17/25. FYI: Went to [facility] ER on 06/21/25 for blood transfusion as HGB at facility was 6.9 when they checked it 06/21/25. Labs from [facility] Today: [facility] 06-24-2025 Telephone encounter Note 06/24/25 BMP, blood pressure, pulse summary, and medication notes faxed from [facility]. Records scanned to Media. [facility] 06-21-2025 Emergency department Note This RN at bedside for first 15 minutes of blood transfusion. Pt tolerating transfusion. VS updated in system. [facility] 06-21-2025 Emergency department Note This RN at bedside for first 15 minutes of blood transfusion. Pt tolerating transfusion. VS updated in system. Emergency Department Encounter [facility] ED Patient: Mary Charles : 1935 Date of Evaluation: 06/21/2025 ED Supervising Physician: Sagardomingo Gilliam DO I personally saw Mary Charles [...] the emergency department lab work today from [facility] facility showed hemoglobin of 6.8. Patient is [...] unit of blood and discharged back to [facility] facility. Diagnostics interpreted by me: I personally [...] to contact the dictating provider for clarification.) aSgar Gilliam DO [employer] Sagar Gilliam DO 06/21/252211 Patient arrives via EMS from [facility] following bloodwork that showed low hemoglobin. No overt signs of bleeding on arrival. Patient A&O4. Patient does endorse previous blood transfusions. documented in this encounter [facility] 06-21-2025 Emergency department Triage note Patient arrives via EMS from [facility] following bloodwork that showed low hemoglobin. No overt signs of bleeding on arrival. Patient A&O4. Patient does endorse previous blood transfusions. [facility] 06-21-2025 Physician Emergency department Note Emergency Department Encounter [facility] ED Patient: Mary Charles : 1935 Date of Evaluation: 06/21/2025 ED Supervising Physician: Sagar Gilliam, I personally saw Mary Charles and made/approved [...] the emergency department lab work today from [facility] facility showed hemoglobin of 6.8. Patient is [...] unit of blood and discharged back to [facility] facility. Diagnostics interpreted by me: I personally discussed the patient's management with other clinicians: All diagnostic, treatment, and disposition decisions were made by myself in conjunction with the [employer]. For all further details of the patient's [...] contact the dictating provider for clarification.) Sagar Gilliam, DO [facility] [employer] Sagar Gilliam DO 06/21/252 [facility] Work Phone: 06-17-2025 History of Presen t illness Narrative [facility] Cardiology [facility] CARDIOLOGY - [address] [facility] [address] Dept: [phone] Dept Visit type: Established : 1935 Chief Complaint: Chief Complaint Patient presents with Follow-up 6 Week History of Present Illness: Mary Charles is a 89 y.o. male with HFrEF, Coronary artery disease who is here for followup. Prior events : He presented to [facility] 03/2025 with progressive shortness of breath, hypoxic [...] lb 3.2 oz (82.6 kg) Height: 5' 8.5" (1.74 m) Body mass index is 27.3 [...] tablet, Rfl: 1 documented in this encounter [facility] 05-06-2025 History of Presen t illness Narrative Images from the original note were not included. [facility] Palliative Care Site of Care: [facility] Chief Complaint: Mary Charles is a 89 [...] hospice conversation today Debility Pt now at [facility] Working with PT/OT Palliative encounter Will [...] has a decent appetite, sleeps good - "maybe too much". He has no pain this visit but [...] Falls: No Current Interventions: PT, OT, and correction Current Assistive Devices: walker and wheelchair ROS: See palliative care ROS/ESAS below; All other systems were reviewed and are negative. 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 TBD Yamilka Holloway, PROGRAM THERAPIST - ASSISTANT RESEARCH SCIENTIST [1] No past medical history on file. [...] No Known Allergies documented in this encounter [facility] 05-03-2025 History of Presen t illness Narrative Images from the original note were not included. [facility] - [address] [place] [id number] Dept: [phone] Dept Visit type: Established : 1935 Reason [...] of EF 2. 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 Assessment & Plan: [...] weeks (around 06/14/2025). Wants to establish in [place]. Subjective No prior history as he has not been to a doctor for many years He presented to [facility] 03/2025 with progressive shortness of breath, hypoxia [...] lb 8 oz (85 kg) Height: 5' 8.5" (1.74 m) Physical Exam Vitals reviewed. Constitutional: [...] history on file. documented in this encounter [facility] 05-03-2025 Evaluation + Plan note Associated Problem(s): Abnormal CAT scan CT abdomen with mural thickening involving the cecum and terminal ileum concern for neoplasm versus inflammation. Seen by GI with plan for EGD and colonoscopy once stable. -GI follow-up [facility] 05-03-2025 Miscellaneous Notes Associated Problem(s): Abnormal [...] discharge. Hgb 8.2 per labs 04/26/2025 from . -No aspirin due to anemia - continue [...] today Associated Problem(s): 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 Suspected CAD causing [...] re-evaluation of EF documented in this encounter [facility] 05-03-2025 Evaluation + Plan note Associated Problem(s): PAC (premature atrial contraction) Noted to have irregular heart rhythm during hospitalization and multiple EKGs show sinus rhythm with frequent PACs. -Continue Toprol 25 mg p.o. daily Rare Pink [facility]Fit 05-03-2025 Evaluation + Plan note Associated Problem(s): [...] discharge. Hgb 8.2 per labs 04/26/2025 from . -No aspirin due to anemia - continue to monitor 3dplusme 05-03-2025 Evaluation + Plan note Associated Problem(s): Acute kidney injury superimposed on chronic kidney disease (HCC) (HCC) Creatinine 1.46 on admission. Peak creatinine 1.78. Most recent creatinine 1.8 per labs 04/26/2025 - Continue to monitor - may have to accept a higher creatinine to keep him out of HF 3dplusme 05-03-2025 Evaluation + Plan note Associated Problem(s): Pleural effusion Bedside thoracentesis 04/09/2025 with 1 L removed from the left and 600 mL removed from the right. Repeat left thoracentesis 04/14/2025 with 600 mL removed. - continue to monitor, appears euvolemic today [facility] 05-03-2025 Evaluation + Plan note Associated Problem(s): 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 Suspected CAD causing HFrEF. NO angina. - no ASA 2/2 anemia - continue Toprol 25 mg po daily - continue atorvastatin 20 mg po daily - not a candidate or invasive workup due to anemia, advanced age and frailty [facility] 05-03-2025 Evaluation + Plan note Associated [...] in 3 months for re-evaluation of EF [facility] 04-19-2025 History of Presen t illness Narrative Pt was followed by the Palliative Care Team during hospitalization at [facility]. Provider is recommending continued Palliative follow up in the community. Referral made referral to [facility] SNF team. documented in this encounter [facility] 04-17-2025 Nurse Note Report given to Flor MYERS at [facility]. All belongings sent with patient, including eyewear. HL removed, site WNL. RN contacted PRACTICE ADVISOR Marleny concerning attempt to wean patient to [...] very aggressively. 2 RN , 2 nursing home social worker were at bedside trying to calm him [...] within normal limits. documented in this encounter [facility] 04-17-2025 Miscellaneous Notes Patient Choice Patient Name: MARY CHARLES Date of : 1935 Share Number: 0 Method of Sharing: electronic Date of Sharin2025-04-08 13:13:49.000 Responding Recipient: @[employer] Ranked Providers Sent Referral Rank: 2 Name: [employer] Phone: [phone] Address: [address] [place] [address] Rank: 3 Name: [facility], [employer]. Phone: [phone] Address: [address] [place] [address] Rank: 1 Name: Jan FUENTES Member Phone: [phone] Address: [address] [place] [address] All Providers Sent Referral Name: [employer] Phone: [phone] Address: [address] [place] [address] Name: [facility] [employer]. Phone: [phone] Address: [address] [place] [address] Name: Jan FUENTES Member Phone: [phone] Address: [address] [place] [address] Care Management Progress Note Short Medical why still here: Pending placement. Planned Discharge Disposition: Senior Care Facility ([facility]) Barriers/Today we still Wait: Clinical stability [...] Requested cot transport for 1230 via [facility]. [facility] accepted for 1230. Notified bedside RN of transport time and number to call report. Notified facility of transport time and sent DC Summary and MAR via CarePort. Spoke with daughter Anahy Charles at [phone] regarding transportation plan. Confirmed pickup time is 1230. Discussed patient may have a co-pay for ambulance depending on their individual insurance coverage. Advised daughter Anahy to call number on back of insurance card with questions or concerns. Tasked weekend TTC to follow for possible dc over the weekend. mergers and acquisitions manager to follow and assist as needed. 7000 Complete in [facility] for [facility] per TCC request Care Management Progress [...] at that facility if he chooses. -Tasked INSIGHTS STRATEGIST to complete and upload into [employer]. Barriers/Today we still Wait: Clinical stability, Symptomatic [...] will still need placement at a facility. -mergers and acquisitions manager to follow and assist as needed. [...] family later on Saturday. Planned Discharge Disposition: Senior Care Facility vs hospice Barriers/Today we still Wait: Receiving IV medication, clinical stability, Post-discharge arrangement completion (SNF vs hospice) mergers and acquisitions manager to follow and assist as needed. Length of Stay (Days): 9 GMLOS: 3.9 Family Communication Number Called: [phone] Name of Designated Family Roll Handler: Anahy Charles Relationship to patient: Daughter Outcome: I spoke with the individual listed above Family Roll Handler Updated on the Following: --provided medical update. [...] Signed, Bela Agustin APRN, CNP, [facility] Palliative Care/Hospice PGR [phone] Care Management Progress Note Short Medical why still here: did send bipap settings to [facility] and requested for them to obtain bipap unit for patient to utilize at their facility. Currently requiring oxygen at 1 liter. Anticipate probable dc tomorrow. Will need 7000 and transport arranged. Planned Discharge Disposition: Senior Care Facility Barriers/Today we still Wait: Administering IV medications, Clinical stability, Facility pre-cert Length of Stay (Days): 8 GMLOS: 3.9 . Referral placed to SNF- [facility] via Careport per TCC request. Await review and response regarding ability to accept. TCC notified. Care Management Progress Note Short Medical why still here: reviewed chart. Dgt has selected SNF choices virtually - 1. [facility] 2. [facility] 3. [facility]. Tasked INSIGHTS STRATEGIST to create these referrals - will follow. Planned Discharge Disposition: Senior Care Facility Barriers/Today we still Wait: Administering IV medications, Clinical stability, Facility pre-cert Length of Stay (Days): 7 GMLOS: 3.9 Called and spoke with deya Higginbotham of patient, and provided DC planning updates. [facility] willing to accept. Updates sent to facility. ICU Transfer Checklist Transfer Med Reconciliation (resume home meds if able, convert to PO if able) Complete Antibiotics (name, indication, duration, convert to PO if able) None Steroid (indication, duration, convert to PO if able) None Anticipated [place] Medications (ICU initiated) or Dose Changes and Indication No Permanently Discontinued Home Medications and Reason for medication contraindication No García Catheter (please remove if able. Note: place DC order) No Central Line (please remove if able. Note: place DC order) No Transfer Discussed with: Dr. Regan with [facility] If additional questions for ICU team within 24 hours of ICU transfer, page [phone] for clarifications. Will assume care as patient is being transferred out of ICU. D/w Dr Torres via secure chat Images from the original note were not included. [facility] Palliative Care Transitions of Care Note Mary [...] care of himself. -Consider medication for mood? -Pit Laborer support requested. -Monitor. Hx CKD III -CrCl [...] No DISPOSITION: SNF FACILITY/HOME CARE AGENCY NAME: [facility], referrals have been sent to [facility]. Follow up with palliative team on office [...] care and cardiology following. Planned Discharge Disposition: Senior Care Facility Barriers/Today we still Wait: Clinical stability, Audit Machine Operator recommendations (comment), Diagnostic workup, Administering IV medications, [...] by Resp Therapy. Evchristine by Dr Regan [facility]. Care Management Progress Note Short Medical why [...] need if SNF is recommended by PT. mergers and acquisitions manager to follow and assist as needed. Length of Stay (Days): 1 GMLOS: No GMLOS Documented documented in this encounter [facility] 04-17-2025 Note [facility] 04-17-2025 Hospital course Narrative Discharge Summary Mary [...] (97.2 F) (Temporal) Resp 18 Ht 5' 8" (1.727 m) Wt 204 lb 12.8 oz [...] Your Medications These medications were sent to [facility] [address] [place] [address] Hours: Saturday to Saturday 10 am to 6 pm atorvastatin 20 MG tablet hydrALAZINE 10 MG tablet metoprolol succinate XL 25 MG 24 hr tablet senna-docusate sodium 8.6-50 MG tablet spironolactone 25 MG tablet Torsemide 40 MG tablet DIET: Adult diet Regular; No Added Salt (3-4 gm) ACTIVITY: No restriction. COMPLEXITY OF FOLLOW UP: [x] Moderate Complexity: follow up within 7-14 calendar days (44833) [] Severe Complexity: follow up within 7 calendar days (63768) FOLLOW UP TESTING, PENDING RESULTS OR REFERRALS AT TRANSITIONAL CARE VISIT: [x] Yes [] No PENDING STUDIES: DISPOSITION: Skilled Facility FACILITY/HOME CARE AGENCY NAME: Follow up with Nelson Garcia MD [address] [facility] [address] Go on 05/18/2025 Pulmonary hospital follow-up at 9:15 AM Marian Casarez APRN - ASSISTANT RESEARCH SCIENTIST [address] [place] [address] Follow up on 04/22/2025 Cardiology follow-up at 10:00 AM. [facility] Gastroenterology - [address] [address] Follow up in 1 month(s) [...] 04/17/2025, 10:12 AM documented in this encounter [facility] 04-17-2025 History of Presen t illness Narrative [facility] and [facility] Cardiology /Electrophysiology Progress Note HPI / [...] follow-up 04/22/2025 at 10 AM at the [facility] office with myself, Marian Casarez CNP. [...] I, CONVENTIONAL SENSITIVITY No results found for: "CKTOTAL", "CKMB", "CKMBINDEX", "TROPONINI" TROPONIN I, HIGH SENSITIVITY Troponin HS Serial [...] found for: TROPDELTBASE No results found for: "TROPHS3" No results found for: TROPDELTSEC Recent Labs 04/15/25 02104/16/25 0339 04/17/25 0440 NA 139 140 138 K 3.5 3.6 3.6 CL 90* 87* 88* CO2 40* 43* 40* BUN 43* 46* 46* CREATININE 1.58* 1.81* 1.67* Recent Labs 04/15/2521104/16/25 03304/17/25 0440 WBC 12.4* 13.1* 12.0* HGB 7.8* 8.0* 7.9* HCT 28.0* 28.4* 27.9* MCV 84.1 84.3 84.0 PLT 332 405 419 No results for input(s): "BNP" in the last 72 hours. No results for input(s): "TRIG", "HDL", "LDLCALC", "CHOL" in the last 72 hours. No results [...] Daily torsemide, 40 mg, Oral, Daily [2] [facility] Respiratory Care Department Progress Note Comment [...] mind regarding wearing PAP to hit their "call light" or inform their nurse to contact Respiratory. [...] care of himself. -Consider medication for mood? -Pit Laborer support requested. -Monitor. Hx CKD III -CrCl [...] code status, states that he will decide "when it gets to that point". Daughter stating that the time is now [...] detailed in the note above. Bela Agustin, PROGRAM THERAPIST - ASSISTANT RESEARCH SCIENTIST Palliative Care Assessments: Goals of care: Continue [...] other systems were reviewed and are negative. Lincoln Symptom Assessment Score Lincoln Score Pain Score (if non-verbal, add .FLACC [...] (98 F) (Temporal) Resp 20 Ht 5' 8" (1.727 m) Wt 200 lb 13.4 oz [...] notes): BMP, CBC 04/16/25 Pulmonology note from 8-04/16/25 Data in Support of Terminal Illness: Is [...] On: Kcal/kg Weight Used for Energy Requirements: [place] Weight for Energy Calculation (kg): 70 kg Total Energy Requirements (kcals/day): 6317-7321 (25-30) Weight Used for Protein Requirements: [place] Weight in Kg Used for Protein Requirements: [...] daily) Anthropometric Measures: Height: 172.7 cm (5' 8") Current Body Weight: 90.7 kg (200 lb) Weight Source: Stated Admission Body Weight: 90.7 kg (200 lb) (stated) Usual Body Weight: (none on file to review) [place] Body Weight (lbs) (Calculated): 154 lbs [place] Body Weight (Kg) (Calculated): 70 kg % [place] Body Weight (Calculated): 129.9 % BMI (kg/m2) [...] Continue current diet Kristin Duffy RD Contact: *[phone] or via Secure Chat Images from the original note were not included. OCCUPATIONAL THERAPY [facility] Treatment Note Name/MRN: Mary Charles ([id number]) Date of : 1935 Age: 89 y.o. Room/Bed: [facility]268/[facility] B Visit #: 4 out of 7 Discharge Recommendation: Senior Care Facility Equipment Needed: No Assessment Pt tolerated [...] Medical History[1] LABS: CBC: Recent Labs 04/14/2545604/15/2521104/16/25 033 WBC 12.3* 12.4* 13.1* RBC 3.27* 3.33* [...] 9 9 10 LIVER PROFILE: Recent Labs 04/14/2545604/15/252 04/16/25 0339 AST 19 21 23 ALT <6 <6 6 BILITOT 0.6 0.6 0.5 ALKPHOS 47 48 55 PROT 5.7* 5.7* 6.0* PT/INR: No results for input(s): "PROTIME", "INR" in the last 72 hours. CARDIAC ENZYMES: No results for input(s): "TROPONINI" in the last 72 hours. Procalcitonin: No results found for: "PROCAL" COVID-19 PCR: No results for input(s): "COVID19" in the last 72 hours. Objective: Vitals: BP (!) 104/48 (BP Location: Left arm, Patient Position: Sitting) Pulse 61 Temp 36.7 C (98 F) (Temporal) Resp 20 Ht 5' 8" (1.727 m) Wt 200 lb 13.4 oz [...] ANAHY CHARLES Mobile Relation: Daughter Preferred language: Portuguese Employee Relations Assistant needed? No Albaro Hernández MD Division of Hospitalist Medicine [facility] [1] History reviewed. No pertinent [...] [facility], Pulmonary Medicine [address] [place] [address] Patient - Mary Charles, Age - 89 [...] (98.7 F) (Temporal) Resp 18 Ht 5' 8" (1.727 m) Wt 200 lb 13.4 oz [...] 19 INR PTT No results found for: "PTT" Cultures Right pleural fluid Culture: NGTD Cytology: [...] heart failure, unspecified heart failure type (HCC) [facility] Cardiology /Electrophysiology [...] I, CONVENTIONAL SENSITIVITY No results found for: "CKTOTAL", "CKMB", "CKMBINDEX", "TROPONINI" TROPONIN I, HIGH SENSITIVITY Troponin HS Serial [...] found for: TROPDELTBASE No results found for: "TROPHS3" No results found for: TROPDELTSEC Recent Labs [...] 293 332 405 No results for input(s): "BNP" in the last 72 hours. No results for input(s): "TRIG", "HDL", "LDLCALC", "CHOL" in the last 72 hours. No results [...] (A) 55 - 100 % Final Marian Casarez APRN - ASSISTANT RESEARCH SCIENTIST Date Of Service 04/16/2025 [1] atorvastatin, 20 mg, Oral, Nightly hydrALAZINE, 10 mg, Oral, TID metoprolol succinate XL, 25 mg, Oral, Daily pantoprazole, 40 mg, Oral, qAM AC senna-docusate sodium, 2 tablet, Oral, BID spironolactone, 25 mg, Oral, Daily torsemide, 40 mg, Oral, Daily [2] [facility] Respiratory Care Department Progress Note Comment [...] mind regarding wearing PAP to hit their "call light" or inform their nurse to contact Respiratory. [...] Respiratory in the care of this patient, [facility] Cardiology /Electrophysiology [...] I, CONVENTIONAL SENSITIVITY No results found for: "CKTOTAL", "CKMB", "CKMBINDEX", "TROPONINI" TROPONIN I, HIGH SENSITIVITY Troponin HS Serial [...] found for: TROPDELTBASE No results found for: "TROPHS3" No results found for: TROPDELTSEC Recent Labs 04/13/25 0214 04/14/25 0457 04/15/25 0212 NA 139 140 139 K 3.4* 3.8 3.5 CL 93* 92* 90* CO2 36* 39* 40* BUN 37* 39* 43* CREATININE 1.46* 1.43* 1.58* Recent Labs 04/13/25 0214 04/13/25 0424 04/14/257 04/15/25211 WBC 12.7* -- 12.3* 12.4* HGB 7.8* 11.3* 7.6* 7.8* HCT 28.2* -- 27.3* 28.0* MCV 83.9 -- 83.5 84.1 PLT 276 -- 293 332 No results for input(s): "BNP" in the last 72 hours. No results for input(s): "TRIG", "HDL", "LDLCALC", "CHOL" in the last 72 hours. No results [...] 55 - 100 % Final Marian Casarez, PROGRAM THERAPIST - ASSISTANT RESEARCH SCIENTIST Date Of Service 04/15/2025 [1] atorvastatin, 20 mg, Oral, Nightly furosemide, 80 mg, IntraVENous, BID hydrALAZINE, 10 mg, Oral, TID metoprolol succinate XL, 25 mg, Oral, Daily pantoprazole, 40 mg, Oral, qAM AC senna-docusate sodium, 2 tablet, Oral, BID spironolactone, 25 mg, Oral, Daily [2] Images from the original note were not included. [facility], Pulmonary Medicine [address] [place] [address] Patient - Mary Charles, Age - 89 y.o. - 1935 Room Number - B2-268/B2-268 B Consulting - Albaro Hernández MD Primary Care Physician - No primary care provider on file. [id number] Date of Admission - 04/05/2025 3:55 PM [...] (97.9 F) (Temporal) Resp 20 Ht 5' 8" (1.727 m) Wt 200 lb 13.4 oz [...] 25 INR PTT No results found for: "PTT" Cultures Right pleural fluid Culture: NGTD Cytology: [...] 5.7* 5.7* PT/INR: No results for input(s): "PROTIME", "INR" in the last 72 hours. CARDIAC ENZYMES: No results for input(s): "TROPONINI" in the last 72 hours. Procalcitonin: No results found for: "PROCAL" COVID-19 PCR: No results for input(s): "COVID19" in the last 72 hours. Objective: Vitals: BP (!) 96/49 Pulse 63 Temp 36.6 C (97.9 F) (Temporal) Resp 20 Ht 5' 8" (1.727 m) Wt 200 lb 13.4 oz [...] Contact: MELVINANAHY Mobile Relation: Daughter Preferred language: Portuguese Employee Relations Assistant needed? No Albaro Hernández MD Division of Hospitalist Medicine Acute [facility] [1] History reviewed. No pertinent past [...] ON 04/16/2025] polyethylene glycol (PEG) 3350 [4] [facility] Respiratory Care Department Progress Note Comment [...] mind regarding wearing PAP to hit their "call light" or inform their nurse to contact Respiratory. [...] Respiratory in the care of this patient, [facility] Cardiology /Electrophysiology [...] I, CONVENTIONAL SENSITIVITY No results found for: "CKTOTAL", "CKMB", "CKMBINDEX", "TROPONINI" TROPONIN I, HIGH SENSITIVITY Troponin HS Serial [...] found for: TROPDELTBASE No results found for: "TROPHS3" No results found for: TROPDELTSEC Recent Labs [...] 276 -- 293 No results for input(s): "BNP" in the last 72 hours. No results for input(s): "TRIG", "HDL", "LDLCALC", "CHOL" in the last 72 hours. No results [...] original note were not included. OCCUPATIONAL THERAPY [facility] ED's Name/MRN: Mary Charles ([id number]) Date: 04/14/2025 Attempted to see pt for OT tx. Pt reported being very fatigued after getting cleaned up and working with PT this AM. Unable to encourage participation in OT tx at this time. Marleni Victor OT Images from the original note were not included. PHYSICAL THERAPY [facility] Treatment Note Name/MRN: Mary Charles ([id number]) Date of : 1935 Age: 89 y.o. Room/Bed: B2-268/B2-268 B Visit #: 4 out of 5 Discharge Recommendation: Senior Care Facility Equipment Needed: No Assessment Patient supine [...] 5.8* 5.7* PT/INR: No results for input(s): "PROTIME", "INR" in the last 72 hours. CARDIAC ENZYMES: No results for input(s): "TROPONINI" in the last 72 hours. Procalcitonin: No results found for: "PROCAL" COVID-19 PCR: No results for input(s): "COVID19" in the last 72 hours. Objective: Vitals: BP 105/54 (BP Location: Left arm, Patient Position: Sitting) Pulse 71 Temp 36.7 C (98 F) (Temporal) Resp 16 Ht 5' 8" (1.727 m) Wt 206 lb 9.6 oz [...] ANAHY CHARLES Mobile Relation: Daughter Preferred language: Portuguese Employee Relations Assistant needed? No Albaro Hernández MD Division of [...] [facility], Pulmonary Medicine [address] [place], [place] [id number] Patient - Mary Charles, Age - 89 y.o. - 1935 Room Number - B2-268/B2-268 B Consulting - Albaro Hernández MD Primary Care Physician - No primary care provider on file. [id number] Date of Admission - 04/05/2025 3:55 PM [...] diuretics. Patient expressed his concern fears stating "I don't want to ". He was agreeable to try thoracentesis again to see if this helped. Objective Vitals: BP 105/54 (BP Location: Left arm, Patient Position: Sitting) Pulse 71 Temp 36.7 C (98 F) (Temporal) Resp 16 Ht 5' 8" (1.727 m) Wt 206 lb 9.6 oz [...] 19 INR PTT No results found for: "PTT" Cultures Right pleural fluid Culture: NGTD Cytology: [...] to HFrEF. I spoke with cardiology team- lAejandro Queen APRN today. Plan to stop torsemide [...] at home. I spoke with Breana from [employer]. Likely will need to have bedside spirometry [...] On: Kcal/kg Weight Used for Energy Requirements: [place] Weight for Energy Calculation (kg): 70 kg Total Energy Requirements (kcals/day): 8997-0589 (25-30) Weight Used for Protein Requirements: [place] Weight in Kg Used for Protein Requirements: [...] Ensure) Anthropometric Measures: Height: 172.7 cm (5' 8") Current Body Weight: 95.1 kg (209 lb 10.5 oz) Weight Source: Stated Admission Body Weight: 90.7 kg (200 lb) (stated) Usual Body Weight: (none on file to review) [place] Body Weight (lbs) (Calculated): 154 lbs [place] Body Weight (Kg) (Calculated): 70 kg % [place] Body Weight (Calculated): 136.1 % BMI (kg/m2) [...] Oral Nutrition Supplement Kristin Duffy RD Contact: [phone] or via Secure Chat Images from the original note were not included. OCCUPATIONAL THERAPY [facility] Treatment Note Name/MRN: Mary Charles ([id number]) Date of : 1935 Age: 89 y.o. Room/Bed: [facility]268/[facility] B Visit #: 3 out of 7 Discharge Recommendation: Senior Care Facility Equipment Needed: No Prior Level of [...] Gongora OT at 04/14/2025 9:03 AM EDT [facility] Cardiology /Electrophysiology Progress Note HPI / Interval History: Mray Charles is a 89 y.o. year old [...] goals of heart failure and he states, "I am 89 so not sure how much I actually want to do about it." Additionally on telemetry it looks like he [...] I, CONVENTIONAL SENSITIVITY No results found for: "CKTOTAL", "CKMB", "CKMBINDEX", "TROPONINI" TROPONIN I, HIGH SENSITIVITY Troponin HS Serial [...] found for: TROPDELTBASE No results found for: "TROPHS3" No results found for: TROPDELTSEC Recent Labs [...] 272 276 -- No results for input(s): "BNP" in the last 72 hours. No results for input(s): "TRIG", "HDL", "LDLCALC", "CHOL" in the last 72 hours. No results [...] 55 - 100 % Final Marian Casarez, LOURDES - ASSISTANT RESEARCH SCIENTIST Date Of Service 04/13/2025 [1] atorvastatin, 20 [...] History[1] LABS: CBC: Recent Labs 04/11/25 0501 04/12/2532404/13/254 04/13/25 0424 WBC 13.8* 12.0* 12.7* -- RBC 3.48* 3.20* 3.36* -- HGB 7.9* 7.4* 7.8* 11.3* HCT 28.9* 26.8* 28.2* -- MCV 83.0 83.8 83.9 -- RDW 24.2* 24.3* 25.0* -- PLT 313 272 276 -- BMP: Recent Labs 04/11/25 0501 04/12/255 04/13/25 021 [...] 5.6* 5.8* PT/INR: No results for input(s): "PROTIME", "INR" in the last 72 hours. CARDIAC ENZYMES: No results for input(s): "TROPONINI" in the last 72 hours. Procalcitonin: No results found for: "PROCAL" COVID-19 PCR: No results for input(s): "COVID19" in the last 72 hours. Objective: Vitals: BP (!) 101/44 (BP Location: Left arm, Patient Position: Lying) Pulse 65 Temp 36.7 C (98.1 F) (Temporal) Resp 20 Ht 5' 8" (1.727 m) Wt 206 lb 9.6 oz [...] ANAHY CHARLES Mobile Relation: Daughter Preferred language: Portuguese Employee Relations Assistant needed? No Albaro Hernández MD Division of Hospitalist Medicine Acute [facility] [1] History reviewed. No pertinent past [...] [facility], Pulmonary Medicine [address] [place] [address] Patient - Mary Charles, Age - 89 [...] (98.1 F) (Temporal) Resp 20 Ht 5' 8" (1.727 m) Wt 206 lb 9.6 oz [...] Results from last 7 days Lab Units 04/13/2542304/13/25213 WBC AUTO 10*3/uL -- 12.7* HEMOGLOBIN g/dL [...] 18 INR PTT No results found for: "PTT" Cultures Right pleural fluid Culture: NGTD Cytology: [...] original note were not included. OCCUPATIONAL THERAPY [facility] Treatment Note Name/MRN: Mary Charles ([id number]) Date of : 1935 Age: 89 y.o. Room/Bed: B2-268/B2-268 B Visit #: 2 out of 7 visits Discharge Recommendation: Senior Care Facility Equipment Needed: No Prior Level of Function Prior Level of ADL Function: Required Assist (for showering and pt wipes himself down with wash cloth IND) Prior Level of Mobility: Independent; Device: Rollator Prior Level of Transfers: Independent Assessment Pt agreeable to therapy at first attempt ([id number]) but states that he first needs to [...] returned an hour later. Pt states he "forgot" to ring the call light as he had visitors. Pt is mod assist to completely roll on his side and total assist for kehinde-care after a small BM. Pt states he has to urinate and so he urinated in the bed and states he has no control. States "I'm just doing what they told me to do". Pt able to complete kehinde-care while on [...] and states he has no control. States "I'm just doing what they told me to do". Pt able to complete kehinde-care while on [...] care of himself. -Consider medication for mood? -Pit Laborer support requested. -Monitor. Hx CKD III -CrCl [...] hospital setting and will send referral to [place] di[facility] office coordinator for palliative SNF referral. -Questions answered, [...] other systems were reviewed and are negative. Lincoln Symptom Assessment Score Lincoln Score Pain Score (if non-verbal, add .FLACC [...] (98.7 F) (Temporal) Resp 16 Ht 5' 8" (1.727 m) Wt 201 lb 6.4 oz [...] LOURDES Ordaz CNP Hospitalist Progress Note 04/12/2025 [phone]: Please secure chat me for patient care issues. [phone]: Please secure chat [facility] Hospitalist for any issues. Subjective: Admit Date: [...] diet Regular; No Added Salt (3-4 gm) @[id number]@ 24HR INTAKE/OUTPUT: Intake/Output Summary (Last 24 hours) [...] 294 313 272 BMP: Recent Labs 04/10/2544204/11/25 05004/12/25 032 NA 142 139 139 K 3.2* 3.6 3.7 CL 95* 94* 95* CO2 35* 35* 37* BUN 32* 36* 40* CREATININE 1.65* 1.55* 1.53* GLUCOSE 98 103 103 CALCIUM 8.0* 8.1* 7.9* ANIONGAP 12 10 7 LIVER PROFILE: Recent Labs 04/10/2544204/11/25 05004/12/25324 AST 16 18 19 ALT <6 <6 <6 BILITOT 0.6 0.7 0.6 ALKPHOS 50 53 49 PROT 5.5* 6.1* 5.6* PT/INR: No results for input(s): "PROTIME", "INR" in the last 72 hours. CARDIAC ENZYMES: No results for input(s): "TROPONINI" in the last 72 hours. Procalcitonin: No results found for: "PROCAL" COVID-19 PCR: No results for input(s): "COVID19" in the last 72 hours. Objective: Vitals: BP 100/51 Pulse 62 Temp 37.1 C (98.7 F) (Temporal) Resp 16 Ht 5' 8" (1.727 m) Wt 201 lb 6.4 oz [...] care input PT and OT assessments recommended [facility]pc facility -am labs, replace lytes prn -increase activity -DVT prophylaxis: [] Lovenox [] Heparin [x] SCDs [x] Encourage ambulation [] Already on Anticoagulation - GI prophylaxis : Anticipated Discharge - Date -April 14 or - Location -fpc facility - Pending the following -clinical improvement, specialist clearance Total time spent (which include face to face and non face to face encounters) : 53 minutes Toxic drug monitoring/narrow therapeutic index drug monitoring : # Drug name : # Route administered : # Method of monitoring : Extended Emergency Contact Information Primary Emergency Contact: ANAHY CHARLES Mobile Relation: Daughter Preferred language: Portuguese Employee Relations Assistant needed? Cristal Martinez MD Division of Hospitalist Medicine Acute care [employer] PAGER: [employer] [1] History reviewed. No pertinent past [...] original note were not included. PHYSICAL THERAPY [facility] Treatment Note Name/MRN: Mary Charles ([id number]) Date of : 1935 Age: 89 y.o. Room/Bed: [facility] B Visit #: 3 out of 5 visits Discharge Recommendation: Senior Care Facility Equipment Needed: No Assessment Pt making [...] noted flexing of trunk as well as "buckling" of knees. Exercises Exercises Hamstring Sets: 1 [...] Cabral PT at 04/12/2025 10:47 AM EDT [facility] Cardiology /Electrophysiology Progress Note HPI / Interval History: Mary Charles has no prior cardiac history (has not seen a physician for many years) who presented to [facility] with worsening SOB, hypoxia and edema. CXR [...] I, CONVENTIONAL SENSITIVITY No results found for: "CKTOTAL", "CKMB", "CKMBINDEX", "TROPONINI" TROPONIN I, HIGH SENSITIVITY Troponin HS Serial [...] found for: TROPDELTBASE No results found for: "TROPHS3" No results found for: TROPDELTSEC Recent Labs 04/10/253 04/11/25 0501 04/12/25 0325 NA 142 139 139 K 3.2* 3.6 3.7 CL 95* 94* 95* CO2 35* 35* 37* BUN 32* 36* 40* CREATININE 1.65* 1.55* 1.53* Recent Labs 04/10/253 04/11/25 0501 04/12/25 0325 WBC 12.4* 13.8* 12.0* HGB 7.2* 7.9* 7.4* HCT 26.1* 28.9* 26.8* MCV 82.1 83.0 83.8 PLT 294 313 272 No results for input(s): "BNP" in the last 72 hours. No results for input(s): "TRIG", "HDL", "LDLCALC", "CHOL" in the last 72 hours. No results [...] Benson CNP Date Of Service 04/12/2025 [1] [facility] Respiratory Care Department Progress Note Comment [...] mind regarding wearing PAP to hit their "call light" or inform their nurse to contact Respiratory. [...] original note were not included. OCCUPATIONAL THERAPY [facility] Treatment Note Name/MRN: Mary Charles ([id number]) Date of : 1935 Age: 89 y.o. Room/Bed: -268/B2-268 B Visit #: 1 out of 7 Discharge Recommendation: Senior Care Facility Equipment Needed: No Prior Level of [...] 1:38 PM EDT Hospitalist Progress Note 04/11/2025 [phone]: Please secure chat me for patient care issues. [phone]: Please secure chat [facility] night Hospitalist for any issues. Subjective: Admit [...] diet Regular; No Added Salt (3-4 gm) @[id number]@ 24HR INTAKE/OUTPUT: Intake/Output Summary (Last 24 hours) [...] 5.5* 6.1* PT/INR: No results for input(s): "PROTIME", "INR" in the last 72 hours. CARDIAC ENZYMES: No results for input(s): "TROPONINI" in the last 72 hours. Procalcitonin: No results found for: "PROCAL" COVID-19 PCR: No results for input(s): "COVID19" in the last 72 hours. Objective: Vitals: BP 105/54 (BP Location: Right arm, Patient Position: Sitting) Pulse 51 Temp 36.7 C (98 F) (Temporal) Resp 18 Ht 5' 8" (1.727 m) Wt 198 lb 13.7 oz [...] - Location -Home with home health versus fpc facility - Pending the following -PT and [...] ANAHY CHARLES Mobile Relation: Daughter Preferred language: Portuguese Employee Relations Assistant needed? No Westley Martinez MD Division of Hospitalist Medicine [employer] [facility] PAGER: [employer] [1] History reviewed. No pertinent past medical [...] ON 04/12/2025] torsemide, 40 mg, Oral, Daily [facility] Cardiology /Electrophysiology Progress Note HPI / Interval History: Mary Charles has no prior cardiac history (has not seen a physician for many years) who presented to [facility] with worsening SOB, hypoxia and edema. CXR [...] I, CONVENTIONAL SENSITIVITY No results found for: "CKTOTAL", "CKMB", "CKMBINDEX", "TROPONINI" TROPONIN I, HIGH SENSITIVITY Troponin HS Serial [...] found for: TROPDELTBASE No results found for: "TROPHS3" No results found for: TROPDELTSEC Recent Labs 04/09/2540804/10/2544204/11/25 0501 NA 142 142 139 K 3.5 3.2* 3.6 CL 98 95* 94* CO2 34* 35* 35* BUN 25* 32* 36* CREATININE 1.53* 1.65* 1.55* Recent Labs 04/08/25 1654 04/08/25205204/09/2540804/10/25 0443 04/11/25 0501 WBC -- -- 11.2* 12.4* 13.8* HGB 8.6* 8.4* 7.5* 7.2* 7.9* HCT -- -- 27.7* 26.1* 28.9* MCV -- -- 83.4 82.1 83.0 PLT -- -- 279 294 313 No results for input(s): "BNP" in the last 72 hours. No results for input(s): "TRIG", "HDL", "LDLCALC", "CHOL" in the last 72 hours. No results [...] Benson CNP Date Of Service 04/11/2025 [1] [facility] Respiratory Care Department Progress Note Comment [...] mind regarding wearing PAP to hit their "call light" or inform their nurse to contact Respiratory. [...] original note were not included. PHYSICAL THERAPY [facility] Treatment Note Name/MRN: Mary Charles ([id number]) Date of : 1935 Age: 89 y.o. Room/Bed: 222/ A Visit #: 2 out of 5 Discharge Recommendation: Senior Care Facility Equipment Needed: No Assessment Pt making [...] Raw Score (No Stairs) : 14 JH-HLM JH-HL Score: Static standing (1 or more minutes) [...] original note were not included. OCCUPATIONAL THERAPY [facility] Initial Evaluation Name/MRN: Mary Charles ([id number]) Evaluation Date: 04/10/2025 Date of : 1935 Admission Date: 04/05/2025 3:55 PM Age: 89 y.o. Room/Bed: 222-04/222-04 A Discharge Recommendation: Senior Care Facility Equipment Needed: No Assessment IMPRESSION: Pt [...] Needs Assist Receives Help From: Family Active Clearing Tub Worker: No Prior Level of Function Prior Level [...] Care supervision is transferred to a [facility] Occupational Therapist. Goals and/or [...] History reviewed. No pertinent surgical history. [facility] Cardiology /Electrophysiology Progress Note HPI / Interval History: Mary Charles has no prior cardiac history (has not seen a physician for many years) who presented to [facility] with worsening SOB, hypoxia and edema. CXR [...] I, CONVENTIONAL SENSITIVITY No results found for: "CKTOTAL", "CKMB", "CKMBINDEX", "TROPONINI" TROPONIN I, HIGH SENSITIVITY Troponin HS Serial [...] found for: TROPDELTBASE No results found for: "TROPHS3" No results found for: TROPDELTSEC Recent Labs 04/08/25 0017 04/09/25 0409 04/10/25 0443 NA 142 142 142 K 3.4* 3.5 3.2* CL 99 98 95* CO2 33* 34* 35* BUN 26* 25* 32* CREATININE 1.78* 1.53* 1.65* Recent Labs 04/08/25 0017 04/08/25 1654 04/08/25205204/09/25 0409 04/10/25 0443 WBC 13.0* -- -- 11.2* 12.4* HGB 7.2* 8.6* 8.4* 7.5* 7.2* HCT 25.9* -- -- 27.7* 26.1* MCV 80.2 -- -- 83.4 82.1 PLT 314 -- -- 279 294 No results for input(s): "BNP" in the last 72 hours. No results for input(s): "TRIG", "HDL", "LDLCALC", "CHOL" in the last 72 hours. No results [...] remote tobacco abuse who was admitted to [facility] 04/05/25 with shortness of breath and cough. [...] (Axillary) Resp 21 Ht 1.727 m (5' 8") Wt 90.2 kg (198 lb 13.7 oz) [...] (Active) Date First Assessed/Time First Assessed: 04/08/25 181 Primary Wound Type: Skin Tear Location: Forearm [...] Normal [] Scar/Lesion/Mass Inspection of teeth/lips/gums: Dentition: [x][place] Teeth []Dentures Lips/Gums [x]Intact []Lesion Present Oropharynx exam: Mucosa [x][place] []Moist []Dry Neck: External Appearance: Overall Appearance:[x]Normal [...] -- 3.5 2.6 LFTS: Recent Labs 04/08/25 0017 04/09/25 0409 04/09/25 1019 04/10/25 0443 AST 21 18 -- 16 ALT <6 <6 -- <6 PROT 5.8* 5.7* 5.9* 5.5* BILITOT 0.6 0.7 -- 0.6 ALKPHOS 57 56 -- 50 Glucose: Recent Labs 04/08/25 0017 04/08/25 1631 04/09/25 0409 04/10/25 0443 GLUCOSE 99 -- 90 98 POCGLU -- 100 -- -- Procal: No results for input(s): "PROCAL" in the last 72 hours. CBC: Recent Labs 04/08/25 0017 04/08/25 1654 04/08/25 2053 04/09/25 0409 04/10/25 0443 WBC 13.0* -- -- 11.2* 12.4* HGB 7.2* < > 8.4* 7.5* 7.2* HCT 25.9* -- -- 27.7* 26.1* PLT 314 -- -- 279 294 MCV 80.2 -- -- 83.4 82.1 RDW 21.1* -- -- 21.8* 22.9* < > = values in this interval not displayed. ABGs: Recent Labs 04/08/25 1654 04/08/252052 PHART 7.296* 7.332* [id number] 80.1* 75.1* PO2ART 92.0 104.0 PPI6USU 38.2* 38.9* [id number] 96.1* 97.0 Lactic Acid: No lab exists for component: "LACTA" INR: No results for input(s): "INR" in the last 72 hours. Cardiac Injury Profile: No results for input(s): "CKTOTAL", "CKMB", "TROPONINI" in the last 72 hours. Labs in Last 3 months: Lab Results Component Value Date TSH 10.19 (H) 04/05/2025 Microbiology- Urine Cx: No components found for: "LABURIN" Blood Cx: No components found for: "BC" Sputum Cx: No components found for: "RESPCULTURE" Gram Stain: Lab Results Component Value Date LABGRAM 04/09/2025 Rare Polymorphonuclear leukocytes per low power field LABGRAM No organisms seen 04/09/2025 PNA PCR: No components found for: PNPCRPNL COVID19: No results found for: COVID19 Legionella Ag: No components found for: "LEGIONELLAANTIGEN" Strep Ag: No lab exists for component: "STREPNEUMAGU" Imaging- CXR (04/08/25) IMPRESSION: Findings suggesting pulmonary [...] can use the urinal, no indication for BEAM CARRIER HAULER PUSHER at this time (would be a poor [...] Code Status: Full Code Disposition: Transfer to [facility] with telemetry Critical care time spent reviewing labs/films, examining patient, collaborating with other physicians but excluding procedures for life threatening organ failure is 35 minutes. Precious Torres MD Pulmonary & Critical Care Medicine [facility] Pager #[phone] [1] atorvastatin, 20 mg, Oral, Nightly carvedilol, 3.125 mg, Oral, BID WC furosemide, 40 mg, IntraVENous, BID hydrALAZINE, 25 mg, Oral, TID mupirocin, 1 Application, Nasal, BID pantoprazole, 40 mg, Oral, qAM AC polyethylene glycol (PEG) 3350, 17 g, Oral, Daily senna-docusate sodium, 2 tablet, Oral, BID [Held by provider] torsemide, 20 mg, Oral, Daily [2] [facility] Cardiology /Electrophysiology Progress Note HPI / Interval History: Mary Charles has no prior cardiac history (has not seen a physician for many years) who presented to [facility] with worsening SOB, hypoxia and edema. CXR [...] Does appear tired. Family at bedside (brother, [id number], daughter). No significant complaints today. Assessment/Plan HF [...] I, CONVENTIONAL SENSITIVITY No results found for: "CKTOTAL", "CKMB", "CKMBINDEX", "TROPONINI" TROPONIN I, HIGH SENSITIVITY Troponin HS Serial [...] found for: TROPDELTBASE No results found for: "TROPHS3" No results found for: TROPDELTSEC Recent Labs [...] -- -- 279 No results for input(s): "BNP" in the last 72 hours. No results for input(s): "TRIG", "HDL", "LDLCALC", "CHOL" in the last 72 hours. No results [...] original note were not included. PHYSICAL THERAPY [facility] Treatment Note Name/MRN: Mary Charles ([id number]) Date of : 1935 Age: 89 y.o. Room/Bed: 222/22204 A Visit #: 1 out of 5 Discharge Recommendation: Senior Care Facility Equipment Needed: No Assessment Pt demos [...] Raw Score (No Stairs) : 12 JH-HLM -[facility] Score: Static standing (1 or more minutes) [...] x1) Lucrecia Cabral PT Spiritual Care Note [facility] Palliative Care Patient Name:Mary Charles Chief Complaint: [...] talked about missing her still. He said, "It is hard. When I look at the pictures on the wall, or see her things around the house. I have so many memories." We talked about he normalcy of grief. He spoke about moving from [place] to [place] as a young man. We did some life review. No follow up. Is there spiritual distress? YES Comment: Grief Interventions: spiritual support provided, emotional support provided, empathetic listening, and validated feelings. Care Plan: No care plan. Follow Up: No follow up. Debriefed: with cotton grower team. Carmelita Chairez 04/09/25 Images from the [...] care of himself. -Consider medication for mood? -Pit Laborer support requested. -Monitor. Hx CKD III -CrCl [...] dissatisfaction around care received on 2E and "not paying attention to the breathing issues, and just telling me he has sundowners and dementia" States that "I feel better with him in ICU now."Noted that she states he was taking care of himself and fully independent prior to this admission. Notes that she states she thinks he will need O2/PAP for the rest of his life. Discussed that we will continue to monitor heart function, kidney function, etc. Continue goals of care conversations. She is thankful for the call this morning. Will be in later to "get full picture of what my dad looks like". Questions answered, concerns addressed, emotional support provided. [...] other systems were reviewed and are negative. Lincoln Symptom Assessment Score Lincoln Score Pain Score (if non-verbal, add .FLACC [...] (98.5 F) (Oral) Resp 14 Ht 5' 8" (1.727 m) Wt 209 lb 10.5 oz [...] original note were not included. OCCUPATIONAL THERAPY [facility] ED's Name/MRN: Mary Charles ([id number]) Date: 04/09/2025 OT order received, chart review [...] remote tobacco abuse who was admitted to [facility] 04/05/25 with shortness of breath and cough. [...] (Axillary) Resp 17 Ht 1.727 m (5' 8") Wt 95.1 kg (209 lb 10.5 oz) [...] Normal [] Scar/Lesion/Mass Inspection of teeth/lips/gums: Dentition: [x][place] Teeth []Dentures Lips/Gums [x]Intact []Lesion Present Oropharynx exam: Mucosa [x][place] []Moist []Dry Neck: External Appearance: Overall Appearance:[x]Normal [...] within last 24 hours- BMP: Recent Labs 04/07/2531304/08/25 00104/09/25 0409 NA 143 142 142 K 3.6 [...] ALKPHOS 57 57 56 Glucose: Recent Labs 04/07/2531304/08/25 0017 04/08/25 1631 04/09/25 0409 GLUCOSE 88 99 -- 90 POCGLU -- -- 100 -- Procal: No results for input(s): "PROCAL" in the last 72 hours. CBC: Recent Labs 04/07/2531304/08/25 0017 04/08/25 1654 04/08/25 2053 04/09/25 0409 WBC 11.5* 13.0* -- -- 11.2* HGB 7.4* 7.2* 8.6* 8.4* 7.5* HCT 27.2* 25.9* -- -- 27.7* PLT 346 314 -- -- 279 MCV 80.0 80.2 -- -- 83.4 RDW 20.5* 21.1* -- -- 21.8* ABGs: Recent Labs 04/08/25 1654 04/08/252052 PHART 7.296* 7.332* [id number] 80.1* 75.1* PO2ART 92.0 104.0 [id number] 38.2* 38.9* [id number] 96.1* 97.0 Lactic Acid: No lab exists for component: "LACTA" INR: No results for input(s): "INR" in the last 72 hours. Cardiac Injury Profile: No results for input(s): "CKTOTAL", "CKMB", "TROPONINI" in the last 72 hours. Labs in Last 3 months: Lab Results Component Value Date TSH 10.19 (H) 04/05/2025 Microbiology- Urine Cx: No components found for: "LABURIN" Blood Cx: No components found for: "BC" Sputum Cx: No components found for: "RESPCULTURE" Gram Stain: No results found for: LABGRAM PNA PCR: No components found for: PNPCRPNL COVID19: No results found for: COVID19 Legionella Ag: No components found for: "LEGIONELLAANTIGEN" Strep Ag: No lab exists for component: "STREPNEUMAGU" Imaging- CXR (04/08/25) IMPRESSION: Findings suggesting pulmonary [...] urology evaluation, strict I/O's, no indication for BEAM CARRIER HAULER PUSHER at this time (would be a poor [...] Torres MD Pulmonary & Critical Care Medicine [facility] Pager #[phone] [1] atorvastatin, 20 mg, Oral, Nightly carvedilol, [...] critical care time excluding procedures D/w Yamilka, BEAM CARRIER HAULER PUSHER, LUCIA Adames and family at bedside. Images from the original note were not included. OCCUPATIONAL THERAPY [facility] & ED's Name/MRN: Mary Charles ([id number]) Date: 04/08/2025 Therapy eval and treat orders [...] (Temporal) Resp 21 Ht 1.727 m (5' 8") Wt 90.7 kg (200 lb) SpO2 96% [...] 57 57 LIPASE/AMYLASE: No results for input(s): "AMYLASE", "LIPASE" in the last 72 hours. LACTATE: No lab exists for component: "LACTA" BNP: Recent Labs 04/05/25 1617 BNP 8,438* INR: No results for input(s): "INR" in the last 72 hours. ASSESSMENT AND PLAN 1. Microcytic anemia - hbg stable. Plans on hold for inpatient colon/EGD given events. Continue cv eval, schedule opt once stable 2. Abnormal CT - TI and cecal changes, possibly post infectious, r/o colitis/neoplasia. See above 3. Dysphagia - resolved Will sign off, available if needed. Opt gi follow up with [facility] GI Hospitalist Progress Note 04/08/[id number]: Please secure chat me for patient care issues. [phone]: Please secure chat [place] night Hospitalist for [...] dose of lorazepam.... Adult diet Clear liquid @[id number]@ 24HR INTAKE/OUTPUT: Intake/Output Summary (Last 24 hours) at 04/08/2025 1112 Last data filed at 04/07/2025 1950 Gross per 24 hour Intake 240 ml Output -- Net 240 ml Past Medical History: Medical History[1] LABS: CBC: Recent Labs 04/06/25 03304/07/254 04/08/25 0017 WBC 10.3 11.5* 13.0* RBC 3.46* 3.40* 3.23* HGB 7.6* 7.4* 7.2* HCT 27.2* 27.2* 25.9* MCV 78.6 80.0 80.2 RDW 20.5* 20.5* 21.1* PLT 344 346 314 BMP: Recent Labs 04/06/25 03304/07/25 0314 04/08/25 0017 NA 143 143 142 K 4.2 3.6 3.4* CL 104 98 99 CO2 26 31 33* BUN 24* 26* 26* CREATININE 1.44* 1.63* 1.78* GLUCOSE 98 88 99 CALCIUM 8.2* 7.9* 7.9* ANIONGAP 13 14* 10 LIVER PROFILE: Recent Labs 04/06/25 03304/07/25 0314 04/08/25 0017 AST 25 23 21 ALT 6 <6 <6 BILITOT 1.7* 0.7 0.6 ALKPHOS 63 57 57 PROT 6.1* 5.7* 5.8* PT/INR: No results for input(s): "PROTIME", "INR" in the last 72 hours. CARDIAC ENZYMES: No results for input(s): "TROPONINI" in the last 72 hours. Procalcitonin: No results found for: "PROCAL" COVID-19 PCR: No results for input(s): "COVID19" in the last 72 hours. Objective: Vitals: BP 126/74 (BP Location: Left arm, Patient Position: Sitting) Pulse 98 Temp 36.3 C (97.3 F) (Temporal) Resp 21 Ht 5' 8" (1.727 m) Wt 200 lb (90.7 kg) [...] Date -April 11 or - Location -possible fpc facility - Pending the following -clinical improvement, [...] ANAHY CHARLES Mobile Relation: Daughter Preferred language: Portuguese Employee Relations Assistant needed? No Westley Martinez MD Division of Hospitalist Medicine [facility] PAGER: [employer] chat [1] History reviewed. No pertinent past medical history. [2] [3] atorvastatin, 20 mg, Oral, Nightly carvedilol, 3.125 mg, Oral, BID WC [Held by provider] furosemide, 40 mg, IntraVENous, BID hydrALAZINE, 25 mg, Oral, TID iron sucrose, 200 mg, IntraVENous, q24h pantoprazole, 40 mg, Oral, qAM AC [facility] Cardiology /Electrophysiology Progress Note HPI / Interval History: Mary Charles has no prior cardiac history (has not seen a physician for many years) who presented to [facility] with worsening SOB, hypoxia and edema. CXR [...] I, CONVENTIONAL SENSITIVITY No results found for: "CKTOTAL", "CKMB", "CKMBINDEX", "TROPONINI" TROPONIN I, HIGH SENSITIVITY Troponin HS Serial [...] found for: TROPDELTBASE No results found for: "TROPHS3" No results found for: TROPDELTSEC Recent Labs 04/05/25161604/06/2533304/07/2531304/08/25 0017 NA 140 143 143 142 K 4.5 4.2 3.6 3.4* CL 105 104 98 99 CO2 27 26 31 33* BUN 24* 24* 26* 26* CREATININE 1.46* 1.44* 1.63* 1.78* Recent Labs 04/05/25161604/06/25 0334 04/07/25 0314 04/08/25 0017 WBC 10.0 [...] (Temporal) Resp 18 Ht 1.727 m (5' 8") Wt 90.7 kg (200 lb) SpO2 96% [...] 63 57 LIPASE/AMYLASE: No results for input(s): "AMYLASE", "LIPASE" in the last 72 hours. LACTATE: No lab exists for component: "LACTA" BNP: Recent Labs 04/05/25 1617 BNP 8,438* INR: No results for input(s): "INR" in the last 72 hours. ASSESSMENT AND PLAN 1. Microcytic anemia - hbg stable. Plans for c/e saturday 2. Abnormal CT - TI and cecal changes, possibly post infectious, r/o colitis/neoplasia. See above 3. Dysphagia - resolved Spiritual Care Note [facility] Palliative Care Patient Name:Mary Charles Chief Complaint: Chief Complaint Patient presents with Leg Swelling Shortness of Breath Pt arrived to triage for shortness of breath and swelling legs. Pt endorses increased work of breath, weakness, confusion and no appetite. Reason for visit: Pit Laborer Consult Services Provided To:patient and family Background and visit note: Patient was cotton grower consult. Introduced myself and pastoral care to [...] and when patient is able. Debriefed: with cotton grower team. Carmelita Chairez 04/07/25 Images from the original note were not included. PHYSICAL THERAPY [facility] Initial Evaluation Name/MRN: Mary Charles ([id number]) Evaluation Date: 04/07/2025 Date of : 1935 Admission Date: 04/05/2025 3:55 PM Age: 89 y.o. Room/Bed: B2-254/B2-254 A Discharge Recommendation: Senior Care Facility Equipment Needed: No Assessment IMPRESSION: Pt [...] Needs Assist Receives Help From: Family Active Clearing Tub Worker: No Prior Level of Function Prior Level [...] Raw Score (No Stairs) : 11 JH-HLM -HLM Score: Static standing (1 or [...] Care supervision is transferred to a [facility] Physical Therapist. Goals and/or treatment plan was established in collaboration with patient/family/other representatives. [1] History reviewed. No pertinent past medical history. [2] History reviewed. No pertinent surgical history. Cosigned by Lucrecia Cabral PT at 04/07/2025 4:00 PM EDT Hospitalist Progress Note 04/07/2025 [phone]: Please secure chat me for patient care issues. [phone]: Please secure chat [facility] Hospitalist for any issues. Subjective: Admit Date: 04/05/2025 PCP: No primary care provider on file. Room#: -254/[facility] A Brief History: Patient is a 89-year-old [...] diet Regular; No Added Salt (3-4 gm) @[id number]@ 24HR INTAKE/OUTPUT: Intake/Output Summary (Last 24 hours) at 04/07/2025 1133 Last data filed at 04/06/2025 2241 Gross per 24 hour Intake 210 ml Output 1720 ml Net -1510 ml Past Medical History: Medical History[1] LABS: CBC: Recent Labs 04/05/25161604/06/2533304/07/25313 WBC 10.0 10.3 11.5* RBC 2.83* 3.46* [...] 6.1* 5.7* PT/INR: No results for input(s): "PROTIME", "INR" in the last 72 hours. CARDIAC ENZYMES: No results for input(s): "TROPONINI" in the last 72 hours. Procalcitonin: No results found for: "PROCAL" COVID-19 PCR: No results for input(s): "COVID19" in the last 72 hours. Objective: Vitals: BP (!) 93/48 (BP Location: Left arm, Patient Position: Sitting) Pulse 66 Temp 36.6 C (97.9 F) (Temporal) Resp 20 Ht 5' 8" (1.727 m) Wt 200 lb (90.7 kg) [...] Date -April 11 or - Location -possible fpc facility - Pending the following -clinical improvement, [...] ANAHY CHARLES Mobile Relation: Daughter Preferred language: Portuguese Employee Relations Assistant needed? No Westley Martinez MD Division of Hospitalist Medicine [facility] PAGER: [employer] chat [1] History reviewed. No pertinent past medical history. [2] [3] atorvastatin, 20 mg, Oral, Nightly carvedilol, 3.125 mg, Oral, BID WC furosemide, 40 mg, IntraVENous, BID hydrALAZINE, 25 mg, Oral, TID iron sucrose, 200 mg, IntraVENous, q24h pantoprazole, 40 mg, Oral, qAM AC [facility] Cardiology /Electrophysiology Progress Note HPI / Interval History: Mary Charles has no prior cardiac history (has not seen a physician for many years) who presented to [facility] with worsening SOB, hypoxia and edema. CXR [...] I, CONVENTIONAL SENSITIVITY No results found for: "CKTOTAL", "CKMB", "CKMBINDEX", "TROPONINI" TROPONIN I, HIGH SENSITIVITY Troponin HS Serial [...] found for: TROPDELTBASE No results found for: "TROPHS3" No results found for: TROPDELTSEC Recent Labs [...] assess Fluid Accumulation: Moderate to Severe Extremities Filling Winder Strength: Not Performed Nutrition Assessment: 89 y.o. male admits with acute on chronic CHF exacerbation with severely reduced left ventricular ejection fraction, acute hypoxic respiratory failure, iron deficiency anemia-acute on chronic status post PRBC transfusion, elevated TSH, CKD, possible obesity hypoventilation syndrome. GI consulted for anemia. Per Cardiology: heart failure "new onset, uncertain etiology/but ICM is suspected, he is perfused, volume overloaded. Not a candidate for ischemic evaluation due to severe anemia and frailty. Conservative, medical management." nursing resident in room. Pt sleeping /snoring -name called numerous times pt did not wake -left undisturbed at this time. Estimated Daily Nutrient Needs: Energy Requirements Based On: Kcal/kg Weight Used for Energy Requirements: [place] Weight for Energy Calculation (kg): 70 kg Total Energy Requirements (kcals/day): 8999-7407 (25-30) Weight Used for Protein Requirements: [place] Weight in Kg Used for Protein Requirements: [...] 1.7 (H) 04/06/2025 No results for input(s): "POCGLU" in the last 72 hours. No results found for: "HGBA1C" No results found for: "VITD25" Lab Results Component Value Date CHOL 89 04/05/2025 HDL 29 (L) 04/05/2025 TRIG 60 04/05/2025 Current Nutrition Therapies: Adult diet Regular; No Added Salt (3-4 gm) Current Oral Intake Average Meal Intake: 51-75% Average Supplements Intake: None Ordered Anthropometric Measures: Height: 172.7 cm (5' 8") Current Body Weight: 90.7 kg (200 lb) Weight Source: Stated Admission Body Weight: 90.7 kg (200 lb) Usual Body Weight: (unable to obtain) [place] Body Weight (lbs) (Calculated): 154 lbs [place] Body Weight (Kg) (Calculated): 70 kg % [place] Body Weight (Calculated): 129.9 % BMI (kg/m2) [...] soon to determine Kristin Duffy RD Contact: *[phone] or via Secure Chat [1] atorvastatin, 20 mg, Oral, Nightly carvedilol, 3.125 mg, Oral, BID WC furosemide, 40 mg, IntraVENous, BID hydrALAZINE, 25 mg, Oral, TID iron sucrose, 200 mg, IntraVENous, q24h pantoprazole, 40 mg, Oral, qAM AC [2] Hospitalist Progress Note 04/06/[id number]: Please secure chat me for patient care issues. [phone]: Please secure chat [place] night Hospitalist for [...] ferritin, IV Venofer added Adult diet Regular @[id number]@ 24HR INTAKE/OUTPUT: Intake/Output Summary (Last 24 hours) [...] 6.4 6.1* PT/INR: No results for input(s): "PROTIME", "INR" in the last 72 hours. CARDIAC ENZYMES: No results for input(s): "TROPONINI" in the last 72 hours. Procalcitonin: No results found for: "PROCAL" COVID-19 PCR: No results for input(s): "COVID19" in the last 72 hours. Objective: Vitals: BP 104/66 (BP Location: Left arm, Patient Position: Lying) Pulse 80 Temp 36.4 C (97.6 F) (Temporal) Resp 19 Ht 5' 8" (1.727 m) Wt 200 lb (90.7 kg) [...] ANAHY CHARLES Mobile Relation: Daughter Preferred language: Portuguese Employee Relations Assistant needed? No Westley Martinez MD Division of Hospitalist Medicine [employer] [facility] PAGER: [employer] chat [1] History reviewed. No pertinent past medical history. [2] [3] atorvastatin, 20 mg, Oral, Nightly carvedilol, 3.125 mg, Oral, BID WC furosemide, 40 mg, IntraVENous, BID hydrALAZINE, 25 mg, Oral, TID iron sucrose, 200 mg, IntraVENous, q24h pantoprazole, 40 mg, Oral, qAM AC documented in this encounter [facility] 04-14-2025 Note IR US Thoracentesis 650 ml of hines yellow fluid removed. Vaseline guaze dressing applied. Patient tolerated procedure well. Patient returned to IN patient room. [facility] 04-14-2025 Consult note Associated Order (s): IP CONSULT TO PALLIATIVE CARE Consult acknowledged. Patient previously seen by palliative care. Signed off on 04-12. Patient has had worsening status in last couple days, worsening pleural effusion. Spoke with pulmonology PRACTICE ADVISORYesi today. Consult placed. Will see tomorrow s/p thoracentesis. Signed, Bela Agustin APRN, [place], [facility] Palliative Care/Hospice [facility] [phone] Cosigned by Diana Marsh MD at 04/14/2025 1:38 PM EDT Images from the original note were not included. [facility], Pulmonary Medicine [address] [place] [id number] Patient - Mary Charles - 1935 Date of Admission - 04/05/2025 3:55 PM Date of evaluation - 04/12/2025 Room - [facility] B Hospital Day - 7 Consulting - [...] agitation and confusion. Vitals height is 5' 8" (1.727 m) and weight is 201 lb [...] ml Output 650 ml Net -410 ml @[id number]@ Physical Exam Physical Exam Vitals and nursing [...] from last 7 days Lab Units 04/12/2532404/11/25 0501 04/10/25 0443 SODIUM mmol/L 139 139 [...] displayed. INR PTT No results found for: "PTT" Cultures Right pleural fluid Culture: NGTD Cytology: Pending Left pleural fluid Culture: NGTD Cytology: Pending Pulmonary function tests (PFT's) No PFT's in [facility] Sleep History No sleep study available in [facility] Radiology CXR 04/11/25: IMPRESSION: Cardiomegaly [...] deltoids) Fluid Accumulation: Moderate to Severe Extremities Filling Winder Strength: Normal softball core molder strength Nutrition Assessment: 89 year old man who remains admitted to [facility] with shortness of breath and hypoxia. Chest [...] On: Kcal/kg Weight Used for Energy Requirements: [place] Weight for Energy Calculation (kg): 70 kg Total Energy Requirements (kcals/day): 8313-2988 (25-30) Weight Used for Protein Requirements: [place] Weight in Kg Used for Protein Requirements: [...] assess Anthropometric Measures: Height: 172.7 cm (5' 8") Current Body Weight: 95.1 kg (209 lb 10.5 oz) Weight Source: Stated Admission Body Weight: 90.7 kg (200 lb) (stated) Usual Body Weight: (none on file to review) [place] Body Weight (lbs) (Calculated): 154 lbs [place] Body Weight (Kg) (Calculated): 70 kg % [place] Body Weight (Calculated): 136.1 % BMI (kg/m2) [...] to determine Darleen Stubbs RDN, LDN, Contact: *[phone] Associated Order(s): INPATIENT CONSULT TO CRITICAL CARE - MEDICAL TEAM Internal Medicine: MICU Initial Consult Name: Mary Charles : 1935(89 y.o.) Date: 04/08/25 Attending: Precious Torres MD Subjective: Chief Complaint: shortness of breath HPI: Patient is a pleasant 89 year-old male with a history of chronic HFrEF and prior remote tobacco abuse who was admitted to [facility] 04/05/25 with shortness of breath and cough. [...] (Temporal) Resp 18 Ht 1.727 m (5' 8") Wt 90.7 kg (200 lb) SpO2 97% [...] Normal [] Scar/Lesion/Mass Inspection of teeth/lips/gums Dentition: [x][place] Teeth []Dentures Lips/Gums: [x]Intact []Lesion Present Mucosa: [x][place] []Moist []Dry Neck: External Appearance Overall Appearance: [...] last 24 hours- BMP: Recent Labs 04/06/2533304/07/2531304/08/25 001 NA 143 143 142 K 4.2 3.6 3.4* CL 104 98 99 CO2 26 31 33* BUN 24* 26* 26* CREATININE 1.44* 1.63* 1.78* CALCIUM 8.2* 7.9* 7.9* MG 1.8 1.7 1.6 LFTs: Recent Labs 04/06/2533304/07/2531304/08/25 001 AST 25 23 21 ALT 6 <6 <6 PROT 6.1* 5.7* 5.8* ALBUMIN 2.6* 2.4* 2.4* BILITOT 1.7* 0.7 0.6 ALKPHOS 63 57 57 Glucose: Recent Labs 04/06/2533304/07/2531304/08/257 04/08/25 1631 GLUCOSE 98 88 99 -- POCGLU -- -- -- 100 Procal: No results for input(s): "PROCAL" in the last 72 hours. CBC: Recent Labs 04/06/2533304/07/2531304/08/251604/08/25 1654 WBC 10.3 11.5* 13.0* -- HGB 7.6* 7.4* 7.2* 8.6* HCT 27.2* 27.2* 25.9* -- PLT 344 346 314 -- MCV 78.6 80.0 80.2 -- RDW 20.5* 20.5* 21.1* -- ABGs: Recent Labs 04/08/25 1654 PHART 7.296* GUH7DSH 80.1* PO2ART 92.0 SIG1DQX 38.2* A2PCJBXO Nasal Cannula (LPM) Lactic Acid: No results for input(s): "LACTATE" in the last 72 hours. INR: No results for input(s): "INR" in the last 72 hours. Cardiac Injury Profile: No results for input(s): "CKTOTAL", "CKMB", "TROPONINI" in the last 72 hours. Labs in [...] COVID19 Legionella Ag: No results found for: "LEGIONELLAPN" Strep Ag: No results for input(s): "STREPPNEUMO" in the last 72 hours. Imaging- CXR [...] Place garcía, strict I/O's, no indication for BEAM CARRIER HAULER PUSHER at this time (would be a poor [...] care of himself. -Consider medication for mood? -Pit Laborer support requested. -Monitor. Hx CKD III -CrCl [...] having to take a break. Endorses maybe "black stool" once in a while. Hgb 5.5 on arrival. Received transfusion while inpatient. Palliative care consulted for goals of care, support. He is seen today, in bed. ASIM. Remains on O2. PT/OT worked with him [...] detailed in the note above. Bela Agustin, PROGRAM THERAPIST - ASSISTANT RESEARCH SCIENTIST Palliative Care Assessments: Goals of care: Continue [...] fully addressed Living status: alone Work history: [place] status: No Christianity: No denominational on file ROS: See palliative care ROS/ESAS below; All other systems were reviewed and are negative. Lincoln Symptom Assessment Score Lincoln Score Pain Score (if non-verbal, add .FLACC [...] (97.9 F) (Temporal) Resp 20 Ht 5' 8" (1.727 m) Wt 200 lb (90.7 kg) [...] Severe anemia HISTORY OF PRESENT ILLNESS: Mary Charels is a 89 y.o. male with no [...] 2024, has a son who lives in [place] and daughter that lives close by Retired from working at [employer] for 43 years No tobacco use Denies [...] Weight: 200 lb (90.7 kg) Height: 5' 8" (1.727 m) General appearance: Alert and oriented, NAD, elderly appearing HEENT: NC/AT, PERRL, sclera anicteric, hard of hearing, pale Neck: Supple, normal ROM Respiratory: Normal respiratory effort. CTA Cardiovascular: Regular rate and rhythm Abdomen: Soft, non-tender, non-distended Neurologic: Grossly intact LABS: CBC: Recent Labs 04/05/25 16104/06/25 0334 WBC 10.0 10.3 RBC 2.83* 3.46* [...] tablet 3.125 mg 3.125 mg Oral BID Cari Scherer MD furosemide (Lasix) injection 20 mg 20 mg IntraVENous PRN Albaro Hernández MD 20 mg at 04/05/25 8615 furosemide (Lasix) injection 40 mg 40 mg [...] Allergies Associated Order(s): IP CONSULT TO CARDIOLOGY [facility] [place] [facility] Consult Note Reason for Consult/Chief Complaint: [...] source Temporal, resp. rate 19, height 5' 8" (1.727 m), weight 200 lb (90.7 kg), [...] 1.44 (H) 04/06/2025 No results found for: "HGBA1C" Lab Results Component Value Date TSH 10.19 [...] daily Consider palliative approach Cari Scherer MD, [facility], [facility] DATE of SERVICE: 04/06/2025 [1] History reviewed. No pertinent past medical history. [2] History reviewed. No pertinent surgical history. [3] No family history on file. 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 No Past Surgical History: History [...] (98.1 F) (Temporal) Resp 20 Ht 5' 8" (1.727 m) Wt 206 lb 9.6 oz [...] Minimal assistance Toileting Total assistance Feeding Independent Senior Systems Architect Minimal assistance Med Delivery yes Wound Care [...] Discharging to Facility/ Agency Name: [facility] Address:[address] [place] [address] Phone:[phone] Dialysis Facility (if applicable) Name: Address: Dialysis Schedule: Phone: Fax: Safety Administrator/Monument Stonecutter signature: ICIAN SECTION Name: Mary Charles Prognosis: [...] to a nursing facility directly from an [facility] or a unit of a [facility] that is not operated by or licensed by [facility] under section 5119.14 or 5160-3-15.1 5 The individual requires the level of services provided by a nursing facility for the condition for which he or she was treated in the hospital and, Physician Certification: I certify the above information and transfer of Mary Charles is necessary for the continuing treatment of the diagnosis listed and that he requires fpc facility for less than 30 days. Update Admission H&P: No change in H&P PHYSICIAN SIGNATURE: documented in this encounter [facility] 04-09-2025 Note [facility] 04-09-2025 Procedure note Associated Ord er(s): [...] this procedure note documented in this encounter [facility] 04-09-2025 Note [facility] 04-05-2025 Note [facility] 04-05-2025 History and physical note Attending [...] (97.4 F) (Oral) Resp 18 Ht 5' 8" (1.727 m) Wt 200 lb (90.7 kg) [...] PROT 6.4 PT/INR: No results for input(s): "PROTIME", "INR" in the last 72 hours. CARDIAC ENZYMES: No results for input(s): "TROPONINI" in the last 72 hours. Procalcitonin: No results found for: "PROCAL" Urine Culture: No results found for this or any previous visit. COVID-19 PCR: No results for input(s): "COVID19" in the last 72 hours. I reviewed: [...] Known Allergies documented in this encounter [facility] Evaluation note Diagnosis Acute congestive heart failure, unspecified heart failure type (HCC)- Primary Acute congestive heart failure, unspecified heart failure type (HCC) Anemia, unspecified type Shortness of breath Hypoxia Hypoxemia CHF (congestive heart failure), NYHA class I, acute on chronic, combined (HCC) [facility] Acute congestive heart failure, unspecified heart failure type (HCC)- Primary [facility] Chronic systolic heart failure (HCC)- Primary Chronic systolic heart failure 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 Pleural effusion Unspecified pleural effusion Acute kidney injury superimposed on chronic kidney disease (HCC) (HCC) 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 chronic kidney disease (HCC) PAC (premature atrial contraction) Supraventricular premature beats Abnormal CAT scan Other nonspecific (abnormal) findings on radiological and other examinations of body structure [facility] Chronic systolic heart failure (HCC)- Primary Chronic systolic heart failure 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 Pleural effusion Unspecified [...] systolic heart failure 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 Pleural effusion Unspecified pleural effusion Acute kidney injury superimposed on chronic kidney disease 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 chronic kidney disease (CMS/HCC) PAC (premature atrial contraction) Supraventricular premature beats Abnormal CAT scan Other nonspecific (abnormal) findings on radiological and other examinations of body structure Chronic systolic heart failure (HCC)- Primary Chronic systolic heart failure [facility] Diagnosis Chronic systolic heart failure (HCC)- Primary Chronic systolic heart failure 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 Pleural effusion Unspecified pleural effusion Acute kidney injury superimposed on chronic kidney disease 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 chronic kidney disease (CMS/HCC) PAC (premature atrial contraction) Supraventricular premature beats Abnormal CAT scan Other nonspecific (abnormal) findings on radiological and other examinations of body structure Anemia due to chronic kidney disease, unspecified CKD stage- Primary documented in this encounter [facility] Chief Complaint and Reason for Visit [...] type (HCC) Procedures .. Albaro Hernández MD [address] [place] [address] Phone: tel: fax: [facility] Cardiac Progressive Care Unit [address] [place] [address] Phone: tel: Referral ID Status Reason Start Date Expiration Date Visits Re quested Visits Authorized 1 1 Reason Comments Hospital Follow-up Congestive Heart Failure Reason Comments Follow-up 6 Week Reason Comments Other Patient here followi ng bloodwork showing low hemoglobin Reason Onset Date Comments Release of Information 06/24/2025 BMP, ferny ls, and medication notes Scheduled Active and Recently Administ ered Medications (unrecognized section and content) Medication Order 04/15/2025 04/16/2025 04/17/2025 atorvastatin (Lipitor) tablet 20 mg 20 mg, Oral, Nightly, First dose on Sat04/06/25 at 2099 2023 (Given - Provider: Jose Tinoco RN) 2105 (Given - Provider: Lynne Calzada RN) furosemide (Lasix) injection 80 mg (CANCELED) 80 mg, IntraVENous, 2 times daily, First dose on Sat04/14/25 at 1230, Hold if systolic blood pressure less than 90 or diastolic blood pressure less than 60, heart rate less than 60 0914 (Given - Provider: Kourtney Jordan RN)2023 (Given - Provider: Jose Tinoco, RN) hydrALAZINE (Apresoline) tablet 10 mg 10 mg, Oral, 3 times daily, First dose (after last modification) on Ellen 04/15/25 at 0900, Hold for systolic less than 110, On hold since 04/17/2025 at 0739 until manually unheld 0912 (Not Given - Provider: Kourtney Jordan RN [...] Grace RN) 0503 (Given - Provider: Jose Tinoco, RN) 0626 (Given - Provider: Lynne Calzada [...] at 1630 0914 (Given - Provider: Kourtney Jordan RN) [...] sedation for opioid reversal - MUST notify environmental field professional provider immediately after first dose, may give [...] Care Teams (unrecognized sec tion and content) Certified Personal Chef Relationship Specialty Start Date End Date Aliya Tadeo RN Archivist Political History Manager 04/09/25 Certified Personal Chef Relationship Specialty Start Date End Date Aliya Tadeo RN Archivist Political History Manager 04/09/25 Certified Personal Chef Relationship Specialty Start Date End Date Aliya Tadeo RN Registered Nurse Archivist Political History Manager 04/09/25 Certified Personal Chef Relationship Specialty Start Date End Date Aliya Tadeo RN Registered Nurse Archivist Political History Manager 04/09/25 Certified Personal Chef Relationship Specialty Start Date End Date Aliya Tadeo RN Registered Nurse Archivist Political History Manager 04/09/25 Certified Personal Chef Relationship Specialty Start Date End Date Aliya Tadeo RN Registered Nurse Archivist Political History Manager 04/09/25 Certified Personal Chef Relationship Specialty Start Date End Date Aliya Tadeo RN Registered Nurse Archivist Political History Manager 04/09/25 (unrecognized sect ion and content) No Status Records FoundNo Status Records Found INFORMATION SOURCE (unrecogn ized section and content) DATE CREATED [facility] DATE CREATED AUTHOR AUTHOR'S ORGANCLEMENTINA ATION 07/17/2025 [facility] FOR RECORDS PERTAINING TO PATIENTS WHO [...] BE BASED ON THE PRIMARY CLINICAL RECORDS. [employer] [facility]. provides no warranty or guarantee of the accuracy or completeness of information in this document.
[2025-07-19 08:15] LABS: Hematocrit 21.2 % (40-54); Hemoglobin 6.6 g/dL (13.0-16.5); Mean Corp Hgb Conc 31.1 g/dL (32-36); Mean Corpuscular Volume 93.0 fL (80-94); Mean Platelet Vol. 8.5 fl (6.2-12.0); Platelet Count 516 K/mm3 (150-450); RBC Distribution Width CV 14.1 % (11.6-14.6); RBC Distribution Width SD 47.1 fl (35.1-43.9); Red Blood Count 2.28 M/mm3 (4.6-6.2); White Blood Count 12.9 K/mm3 (4.4-11.0)
[2025-07-19 08:31] LABS: Anion Gap 9 (5-15); BUN 30 mg/dL (4-19); BUN/Creat Ratio 17.2 RATIO (10-20); Calcium,Total 8.6 mg/dL (7.6-11.0); Carbon Dioxide 28.6 mmol/L (21.0-32.0); Chloride 99 mmol/L (98-108); Glucose 93 mg/dL (70-99); Potassium 3.7 mmol/L (3.3-5.1)
== END ==
LOC: OLS.ACH2 05:00
PROVIDERS: PCP Internal Medicine; Visit Provider Internal Medicine
DX: I50.42 Chronic combined systolic (congestive) and diastolic (congestive) heart failure (principal); D53.9 Nutritional anemia, unspecified
CPT/HCPCS: 36415; 80048; 85027

== ENCOUNTER → 2025-07-26 04:00 | Outpatient (REF) | payer MEDICARE, SELFPAY ==
--- OUTSIDE RECORDS SUMMARY | 2025-07-26 03:59 | XMS RPT_ITS | CCD ---
Author Organization [facility] Care Team Providers Care Clinical Psychologist Licensed Name Role Phone Aliya Tadeo RN Unavailable Unavailable Deperro OLS, Ravi Attending Unavailable Ghourbrial, Negro Primary Care Unavailable Ghourbrial, Negro Primary Care Unavailable Deperro OLS, Ravi Attending Unavailable Deperro OLS, Ravi Attending Unavailable Ghourbrial, Negro Primary Care Unavailable Deperro OLS, Ravi Attending Unavailable Ghourbrial, [facility] Primary Care Unavailable Deperro OLS, Ravi Attending Unavailable Ghourbrial, [facility] Primary Care Unavailable Deperro OLS, Ravi Attending Unavailable Deperro OLS, Ravi Referring Unavailable Ghourbrial, Negro Primary Care Unavailable ALEJANDRO QUEEN Attending Unavailable SAMAD, EBER Attending Unavailable SAMAD, EBER Attending Unavailable CLARA, ALBARO Admitting Unavailable CLARA, ALBARO Attending Unavailable PRECIOUS LEWIS Consulting Unavailable SAGAR GILLIAM Attending Unavailable NONE, PCP Referring Unavailable JOSEFINA ROSE Attending Unavailable DEPERRO, RAVI Primary Care Unavailable Deperro DO, Ravi Primary Care Provider [phone] Unavailable Unavailable Unavailable Medications Current Medications Medication Drug Class(es) Dates Sig (Normalized) Sig (Original) atorvastatin 20 mg oral tablet (15 sources) HMG-CoA Reductase Inhibitor Start: 04-17-2025 End: 04-17-2026 take 1 tablet by mouth once daily atorvastatin (Lipitor) 20 MG tablet Take 1 tablet (20 mg) by mouth Nightly. 30 tablet 1 04/17/2025 04/17/2026 Active Start: 04-06-2025 End: 04-17-2025 docusate sodium 50 mg / sennosides, fci 8.6 mg oral tablet (15 sources) Start: 04-17-2025 End: 04-17-2026 take 2 tablets by mouth twice daily senna-docusate sodium (Senokot-S) 8.6-50 MG tablet Take 2 tablets by mouth 2 times daily. 120 tablet 11 04/17/2025 04/17/2026 Active Start: 04-10-2025 End: 04-17-2026 24 hr metoprolol succinate 25 mg extended release oral tablet (15 sources) beta-Adrenergic Adán Start: 04-10-2025 End: 04-18-2026 take 1 tablet by mouth once daily metoprolol succinate XL (Toprol-XL) 25 MG 24 hr tablet Take 1 tablet (25 mg) by mouth daily. Do not crush or chew. 30 tablet 11 04/18/2025 04/18/2026 Active torsemide (15 sources) Loop Diuretic Start: 04-18-2025 End: 04-18-2026 [...] Start: 04-05-2025 End: 04-06-2025 polyethylene glycol 3350 43271 mg powder for oral solution (4 sources) Osmotic Laxative Start: 04-10-2025 End: 04-17-2025 take 17 g by mouth every twenty-four hours as needed for constipation microencapsulated potassium chloride 10 meq extended release oral tablet (6 sources) Start: 04-13-2025 End: 04-13-2025 Start: 04-10-2025 End: 04-10-2025 Start: 04-08-2025 End: 04-08-2025 50 ml sodium chloride 9 mg/m l injection (4 sources) Start: 07-19-2025 End: 07-19-2025 250 mL/hr, IntraVENous, Administer over 10 Minutes, As needed, For use in priming line prior to transfusion (prime via gravity) and flush line post transfusion, Starting on Sat07/19/25 at 1214, For 1 dose, For use in priming line prior to transfusion (prime via gravity) and flush line post transfusion ONLY. Discontinue once line has been cleared of remaining blood product. Start: 06-21-2025 End: 06-22-2025 250 mL/hr, IntraVENous, Admi nister over 10 Minutes, As needed, For use [...] (25 mg) by mouth daily. 30 tablet 04/18/2025 06/25/2025 Discontinued (Other) (6 sources) Start: [...] te Episodic/Chronic Acute and unspecified renal failure (13 sources) Acute renal failure syndrome; Translations: [Acute kidney failure, unspecified] Onset: 05-03-2025 05-03-2025 Episodic Cardiac dysrhythmias (13 sources) Premature atrial contraction; Translations: [Atrial premature depolarization] Onset: 05-03-2025 05-03-2025 Chronic Chronic kidney disease (4 sources) Anemia in chronic kidney disease; Translations: [Chronic kidney disease, unspecified] Onset: 05-03-2025 06-22-2025 Chronic Chronic kidney disease (3 sources) Chronic kidney disease; Translations: [Chronic kidney disease, stage 3 unspecified] Onset: 05-03-2025 Congestive heart failure; nonhypertensive (20 sources) Acute congestive heart failure; Translations: [Heart failure, unspecified] Onset: 04-05-2025 04-05-2025 Chronic Coronary atherosclerosis and other heart disease (13 sources) Coronary arteriosclerosis; Translations: [Atherosclerotic heart disease of [place] coronary artery without angina pectoris] Onset: 05-03-2025 05-03-2025 Chronic Deficiency and other anemia (11 sources) Anemia co-occurrent and due to chronic kidney disease stage 3; Translations: [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 chronic kidney disease (HCC)] Onset: 05-03-2025 05-03-2025 Chronic Deficiency and other anemia (3 sources) Anemia in chronic kidney disease; Translations: [Anemia in chronic kidney disease] Onset: 05-03-2025 Chronic Deficiency and other anemia (4 sources) Anemia; Translations: [Anemia, unspecified] 04-05-2025 Episodic [...] conditions (not mental disorders or infectious disease) (13 sources) Computed tomography result abnormal; Translations: [Abnormal findings on diagnostic imaging of other specified body structures] Onset: 05-03-2025 05-03-2025 Chronic Pleurisy; pneumothorax; pulmonary collapse (14 sources) Pleural effusion; Translations: [Pleural effusion, not [...] Test Name Value Interpretation Reference Range Facility BLOOD TYPE AND SCREEN Mando 07-19-2025 ABO GROUPING A Normal [facility] Comment on above: Performed By: #### L [id number] ####Estimator And Drafter Supervisor: UNA ARCE ([phone])[facility] ([facility])[address] RH TYPE IN BLOOD Negative Normal [facility] Comment on above: Performed By: #### L [id number] ####Estimator And Drafter Supervisor: UNA ARCE ([phone])[facility] ([facility])[address] [place], [place] [id number] [place] [address] Basic Metabolic Profile (BMP )on 07-19-2025 BUN/CRE 17.2 RATIO Normal 10-20 [facility] Comment on above: Order Comment: 542.1 Performed By: #### L 500.2500, L100.0500 #### [facility] [address] [place], [address] Calcium [Mass/Vol] 8.6 mg/dL Normal 7.6-11.0 [facility] Comment on above: Order Comment: 542.1 Performed By: #### L 500.2500, L100.0500 #### [facility] [address] [place], [address] Chloride [Moles/Vol] 99 mmol/L Normal 98-108 [facility] Comment on above: Order Comment: 542.1 Performed By: #### L 500.2500, L100.0500 #### [facility] [address] [place], [address] CO2 [Moles/Vol] 28.6 mmol/L Normal 21.0-32.0 [facility] Comment on above: Order Comment: 542.1 Performed By: #### L 500.2500, L100.0500 #### [facility] [address] [place], [address] Creatinine [Mass/Vol] 1.77 mg/dL High 0.70-1.20 [facility] Comment on above: Order Comment: 542.1 Performed By: #### L 500.2500, L100.0500 #### [facility] [address] [place], [address] GAP 9 Normal 5-15 [facility] Comment on above: Order Comment: 542.1 Performed By: #### L 500.2500, L100.0500 #### [facility] [address] [place], [address] GFR/1.73 sq M.predicted among non-blacks MDRD (S/P/Bld) [Vol rate/Area] 36 mL/min/{1.73_m2} Low >60 [facility] Comment on above: Order Comment: 542.1 Result Comment: mL/m in/1.73m2 CKD-EPI Creatinine Equation (2020) Performed By: #### L 500.2500, L100.0500 #### [facility] [address] [place], [address] Glucose [Mass/Vol] 93 mg/dL Normal 70-99 [facility] Comment on above: Order Comment: 542.1 Performed By: #### L 500.2500, L100.0500 #### [facility] [address] [place], [address] Potassium [Moles/Vol] 3.7 mmol/L Normal 3.3-5.1 [facility] Comment on above: Order Comment: 542.1 Performed By: #### L 500.2500, L100.0500 #### [facility] [address] [place], [address] Sodium [Moles/Vol] 137 mmol/L Normal 133-145 [facility] Comment on above: Order Comment: 542.1 Performed By: #### L 500.2500, L100.0500 #### [facility] [address] [place], [address] Urea nitrogen [Mass/Vol] 30 mg/dL High 4-19 [facility] Comment on above: Order Comment: 542.1 Performed By: #### L 500.2500, L100.0500 #### [facility] [address] [place], [address] Blood type and Crossmatch keagan victor (Bld)on 07-19-2025 ABO group Froilan (Bld) A [facility] Blood group antibody screen GEL Ql Negative [facility] D Ag Ql (RBC) Negative [facility] CBC W Auto Differential pane l (Bld)Ordered By: Haroldo Alvarez on 07-19-2025 Erythrocyte distribution width (RBC) [Ratio] 14.0 % 11.5 - 15.0 % [facility] Hematocrit (Bld) [Volume fraction] 24.6 % Low 40.0 - 52.0 % [facility] Hemoglobin (Bld) [Mass/Vol] 7.8 g/dL Low 13.0 - 18.0 g/dL [facility] Interpretation and review of laboratory results Abnormal [facility] MCH (RBC) [Entitic mass] 29.2 pg 26. 0 - 34.0 pg [facility] MCHC (RBC) [Mass/Vol] 31.7 % 30.5 - 36.0 % [facility] MCV (RBC) [Entitic vol] 92.1 fL 77.0 - 99.0 fL [facility] Platelet mean volume (Bld) [Entitic vol] 8.3 fL Low 9.0 - 12.7 fL [facility] Platelets (Bld) [#/Vol] 581 10*3/uL High 140 - 440 10*3/uL [facility] RBC (Bld) [#/Vol] 2.67 10*6/uL Low 4.40 - 5.9 0 10*6/uL [facility] WBC (Bld) [#/Vol] 15.6 10*3/uL High 3.6 - 10.7 10*3/uL [facility] CBC WITH AUTO DIFFERENTIALon 07-19-2025 Erythrocyte distribution width (RBC) [Ratio] 14.0 % Normal 11.5-15.0 [facility] Comment on above: Performed By: #### L [id number], [id number] ####Estimator And Drafter Supervisor: UNA ARCE ([phone])[facility] ([address] Hematocrit (Bld) [Volume fraction] 24.6 % Low 40.0-52.0 [facility] Comment on above: Performed By: #### L [id number], [id number] ####Estimator And Drafter Supervisor: UNA ARCE ([phone])[facility] ([facility])[address] Hemoglobin (Bld) [Mass/Vol] 7.8 g/dL Low 13.0-18.0 [facility] Comment on above: Performed By: #### L [id number], [id number] ####Estimator And Drafter Supervisor: UNA YAZMIN ([phone])[facility] ([facility])[address] MCH (RBC) [Entitic mass] 29.2 pg Normal 26.0-34.0 [facility] Comment on above: Performed By: #### L [id number], [id number] ####Estimator And Drafter Supervisor: UNA BERMUDEZPEDRO ([phone])[facility] [place] ([facility])[address] MCHC 31.7 % Normal 30.5-36.0 [facility] Comment on above: Performed By: #### L [id number], [id number] ####Estimator And Drafter Supervisor: UNA ARCE ([phone])[facility] ([facility])[address] MCV (RBC) [Entitic vol] 92.1 fL Normal 77.0-99.0 [facility] Comment on above: Performed By: #### L [id number], [id number] ####Estimator And Drafter Supervisor: UNA ARCE ([phone])[facility] [place] ([facility])[address] Platelet mean volume (Bld) [Entitic vol] 8.3 fL Low 9.0-12.7 [facility] Comment on above: Performed By: #### L [id number], [id number] ####Estimator And Drafter Supervisor: UNA ARCE ([phone])[facility] ([facility])[address] Platelets (Bld) [#/Vol] 581 10*3/uL High 140-440 [facility] Comment on above: Performed By: #### L [id number], [id number] ####Estimator And Drafter Supervisor: UNAANJEL ARCE ([phone])[facility] [place] ([facility])[address] [place] [address] RBC (Bld) [#/Vol] 2.67 10*6/uL Low 4.40-5.90 [facility] Comment on above: Performed By: #### L [id number], [id number] ####Estimator And Drafter Supervisor: UNAANJEL ARCE ([phone])[facility] [place] ([facility])[address] [place] [address] WBC (Bld) [#/Vol] 15.6 10*3/uL High 3.6-10.7 [facility] Comment on above: Performed By: #### L [id number], [id number] ####Estimator And Drafter Supervisor: UNAANJEL ARCE ([phone])[facility] ([facility])[address] [place] [address] CBC-Complete Blood Cnt No [facility] 07-19-2025 Erythrocyte distribution width (RBC) [Ratio] 14.1 % Normal 11.6-14.6 [facility] Comment on above: Order Comment: 542.1 Performed By: #### L 500.2500, L100.0500 #### [facility] [address] [place], [address] Hematocrit (Bld) [Volume fraction] 21.2 % Low 40-54 [facility] Comment on above: Order Comment: 542.1 Performed By: #### L 500.2500, L100.0500 #### [facility] [address] [place], [address] Hemoglobin (Bld) [Mass/Vol] 6.6 g/dL Low 13.0-16.5 [facility] Comment on above: Order Comment: 542.1 Performed By: #### L 500.2500, L100.0500 #### [facility] [address] [place], [address] MCH (RBC) [Entitic mass] 28.9 pg Normal 27.0-32.0 [facility] Comment on above: Order Comment: 542.1 Performed By: #### L 500.2500, L100.0500 #### [facility] [address] [place], [address] MCHC (RBC) [Mass/Vol] 31.1 g/dL Low 32-36 [facility] Comment on above: Order Comment: 542.1 Performed By: #### L 500.2500, L100.0500 #### [facility] [address] [place], [address] MCV (RBC) [Entitic vol] 93.0 fL Normal 80-94 [facility] Comment on above: Order Comment: 542.1 Performed By: #### L 500.2500, L100.0500 #### [facility] [address] [place], [address] Platelet mean volume (Bld) [Entitic vol] 8.5 fL Normal 6.2-12.0 [facility] Comment on above: Order Comment: 542.1 Performed By: #### L 500.2500, L100.0500 #### [facility] [address] [place], [address] Platelets (Bld) [#/Vol] 516 10*3/uL High 150-450 [facility] Comment on above: Order Comment: 542.1 Performed By: #### L 500.2500, L100.0500 #### [facility] [address] [place], [address] RBC (Bld) [#/Vol] 2.28 10*6/uL Low 4.6-6.2 [facility] Comment on above: Order Comment: 542.1 Performed By: #### L 500.2500, L100.0500 #### [facility] [address] [place], [address] RDW SD 47.1 fl High 35.1-43.9 [facility] Comment on above: Order Comment: 542.1 Performed By: #### L 500.2500, L100.0500 #### [facility] [address] [place], [address] WBC (Bld) [#/Vol] 12.9 10*3/uL High 4.4-11.0 [facility] Comment on above: Order Comment: 542.1 Performed By: #### L 500.2500, L100.0500 #### [facility] [address] [place], [address] ED Nursing Noteon 07-19-2025 ED Nursing Note [facility] arrived to transport pt to home facility . Pt transferred to stretcher without difficulty. Pt A&O, calm, and cooperative, no signs of distress noted. VS stable. Resp even, non labored. Normal [facility] ED Nursing Note Report given to [facility]. Marleni Normal [facility] ED Nursing Note Post H&H not needed per Dr. Rose. Ok to dc 30 mins after unit is complete. Normal [facility] ED Nursing Note Meal order placed Normal [facility] ED Nursing Note This RN sat bedside for the first 15 mins of blood transfusion. Pt denied c/o any transfusion reaction symptoms. Pt's vitals rechecked before leaving the room. Normal [facility] ED Provider Noteon ED Provider Note Normal [facility] MANUAL DIFFERENTIALon 2024 BASOPHILS (10*3/UL) IN BLOOD BY MANUAL COUNT 0.3 10*3/uL High 0.0-0.2 [facility] Comment on above: Performed By: #### L [id number], [id number] ####Estimator And Drafter Supervisor: UNA ARCE ([phone])[facility] ([facility])[address] [place] [address] BASOPHILS/100 LEUKOCYTES IN BLOOD BY MANUAL COUNT 2 % Normal 0-2 [facility] Comment on above: Performed By: #### L [id number], [id number] ####Estimator And Drafter Supervisor: UNA ARCE ([phone])[facility] [place] ([facility])[address] CELLS COUNTED TOTAL (#) IN BLOOD 100 Normal [facility] Comment on above: Performed By: #### L [id number], [id number] ####Estimator And Drafter Supervisor: UNA ARCE ([phone])[facility] [place] ([facility])[address] DIFFERENTIAL METHOD Manual differential performed Normal [facility] Comment on above: Performed By: #### L [id number], [id number] ####Estimator And Drafter Supervisor: UNA ARCE ([phone])[facility] ([facility])[address] EOSINOPHILS (10*3/UL) IN BLOOD BY MANUAL COUNT 0.3 10*3/uL Normal 0.0-0.5 [facility] Comment on above: Performed By: #### L [id number], [id number] ####Estimator And Drafter Supervisor: UNA ARCE ([phone])[facility] [place] (SB[facility])[address] [place] [address] [place] EOSINOPHILS/100 LEUKOCYTES IN BLOOD BY MANUAL COUNT 2 % Normal 0-6 [facility] Comment on above: Performed By: #### L [id number], [id number] ####Estimator And Drafter Supervisor: UNA ARCE ([phone])[facility] [place] ([facility])[address] [place] [address] [place] HYPOCHROMIA (PRESENCE) IN BLOOD BY LIGHT MICROSCOPY Slight Abnormal (none) [facility] Comment on above: Performed By: #### L [id number], [id number] ####Estimator And Drafter Supervisor: UNA ARCE ([phone])[facility] [place] ([facility])[address] LEUKOCYTE MORPHOLOGY FINDING IN BLOOD Normal Normal [facility] Comment on above: Performed By: #### L [id number], [id number] ####Estimator And Drafter Supervisor: UNAANJEL ARCE ([phone])[facility] [place] ([facility])[address] [place] [address] [place] LYMPHOCYTES (10*3/UL) IN BLOOD BY MANUAL COUNT 3.3 10*3/uL Normal 1.0-4.3 [facility] Comment on above: Performed By: #### L [id number], [id number] ####Estimator And Drafter Supervisor: UNAANJEL ARCE ([phone])[facility] [place] ([facility])[address] [place] [address] [place] LYMPHOCYTES/100 LEUKOCYTES IN BLOOD BY MANUAL COUNT 21 % Normal 15-45 [facility] Comment on above: Performed By: #### L PQ1671, [id number] ####Estimator And Drafter Supervisor: UNAANJEL ARCE ([phone])[facility] [place] ([facility])[address] [place] [address] [place] MONOCYTES (10*3/UL) IN BLOOD BY MANUAL COUNT 1.4 10*3/uL High 0.0-0.9 [facility] Comment on above: Performed By: #### L [id number], [id number] ####Estimator And Drafter Supervisor: UNA BERMUDEZPEDRO ([phone])[facility] [place] ([facility])[address] [place] [address] [place] MONOCYTES/100 LEUKOCYTES IN BLOOD BY MANUAL COUNT 9 % Normal 5-13 [facility] Comment on above: Performed By: #### L [id number], [id number] ####Estimator And Drafter Supervisor: UNA BERMUDEZPEDRO ([phone])[facility] [place] ([facility])[address] [place] [address] [place] OVALOCYTES PRESENCE IN BLOOD BY LIGHT MICROSCOPY Slight Abnormal (none) [facility] Comment on above: Performed By: #### L [id number], [id number] ####Estimator And Drafter Supervisor: UNA STAUFFERMELANIE ([phone])[facility] [place] ([facility])[address] [place] [address] [place] PLATELET MORPHOLOGY IN BLOOD Normal Normal [facility] Comment on above: Performed By: #### L [id number], [id number] ####Estimator And Drafter Supervisor: UNAANJEL ARCE ([phone])[facility] (SB[facility])[address] POLYCHROMASIA IN BLOOD BY LIGHT MICROSCOPY Slight Abnormal (none) [facility] Comment on above: Performed By: #### L [id number], [id number] ####Estimator And Drafter Supervisor: UNA BERMUDEZPEDRO ([phone])[facility] ([facility])[address] SEGEMENTED NEUTROPHILS/100 LEUKOCYTES BY MANUAL COUNT 66 % Normal 38-82 [facility] Comment on above: Performed By: #### L [id number], [id number] ####Estimator And Drafter Supervisor: UNA YAZMIN ([phone])[facility] (SBHLAB)[address] [place] [address] SEGMENTED NEUTROPHILS (10*3/UL)IN BLOOD BY MANUAL COUNT 10.3 10*3/uL High 1.8-7.5 [facility] Comment on above: Performed By: #### L [id number], [id number] ####Estimator And Drafter Supervisor: UNA YAZMIN ([phone])[facility] ([facility])[address] [place] [address] Manual differential performe d Ql (Bld)Ordered By: Myriam Choi on 07-19-2025 Basophils (Bld) [#/Vol] 0.3 10*3/uL High 0.0 - 0.2 10*3/uL [facility] Basophils/100 WBC (Bld) 2 % 0 - 2 % [facility] Cells Counted Total (Bld) [#] 100 {cells} [facility] Differential Method Manual differential performed [facility] Eosinophils (Bld) [#/Vol] 0.3 10*3/uL 0.0 - 0.5 10*3/uL [facility] Eosinophils/100 WBC (Bld) 2 % 0 - 6 % [facility] Hypochromia Ql (Bld) Slight Abnormal (none) [facility] Interpretation and review of laboratory results Abnormal [facility] Leukocyte morphology finding Nom (Bld) Normal [facility] Lymphocytes (Bld) [#/Vol] 3.3 10*3/uL 1.0 - 4.3 10*3/uL [facility] Lymphocytes/100 WBC (Bld) 21 % 15 - 45 % [facility] Monocytes (Bld) [#/Vol] 1.4 10*3/uL High 0.0 - 0.9 10*3/uL [facility] Monocytes/100 WBC (Bld) 9 % 5 - 13 % [facility] Neutrophils (Bld) [#/Vol] 10.3 10*3/uL High 1.8 - 7.5 10*3/uL [facility] Ovalocytes LM Ql (Bld) Slight Abnormal (none) [facility] Platelet morphology finding Nom (Bld) Normal [facility] Polychromasia LM Ql (Bld) Slight Abnormal (none) [facility] Segmented neutrophils/100 WBC (Bld) 66 % 38 - 82 % [facility] No Panel Informationon 07-19 Blood Expiration Date [id number] [facility] Crossmatch interpretation COMP [facility] Dispense Status Transfused [facility] Blood Type 600 [facility] PRODUCT CODE [id number] [facility] ABO A [facility] [id number] Negative [facility] Volume 300 mL [facility] Progress Noteon 07-19-2025 Progress Note Normal [facility] Progress Noteon 07-15-2025 Progress Note Normal [facility] 36on 07-14-2025 36 Faxed signed order t o [facility] fax#[phone], and scanned to Media. Normal [facility] [address] Hess. Normal [facility] 36 [facility] faxed order to discontinue Hydralazine, and Spironolactone. Placed on nurses desk to have Dr. Hess sign it. Normal [facility] 36on 07-07-2025 36 Darby called back t o verify the diuretic instructions; she had the Lasix written down, so I verified that it was actually torsemide. She verbalized understanding and was thankful for the call. Normal [facility] 36 Normal [facility] Folates,Serum (Folic Acid)on 07-07-2025 FOLATES,SERUM 8.25 ng/mL Normal 4.60-34.80 [facility] Comment on above: Order Comment: 542-1 N Performed By: #### L 506.0200, L100.0600, L503.0106, L503.6030 #### [facility] [address] [place], [address] HH, Hemoglobin AND Hematocri ton 07-07-2025 Hematocrit (Bld) [Volume fraction] 23.3 % Low 40-54 [facility] Comment on above: Order Comment: 542-1 Performed By: #### L 506.0200, L100.0600, L503.0106, L503.6030 #### [facility] [address] [place], [address] Hemoglobin (Bld) [Mass/Vol] 7.3 g/dL Low 13.0-16.5 [facility] Comment on above: Order Comment: 54-1 Performed By: #### L 506.0200, L100.0600, L503.0106, L503.6030 #### [facility] [address] [place], [address] Iron+Iron Binding Capacityon 07-07-2025 Iron [Mass/Vol] 27 ug/dL Low 65-175 [facility] Comment on above: Order Comment: 542-1 Performed By: #### L 506.0200, L100.0600, L503.0106, L503.6030 #### [facility] [address] [place], [address] IRON SATURATION 9.6 Normal 9-55 [facility] Comment on above: Order Comment: 542-1 Performed By: #### L 506.0200, L100.0600, L503.0106, L503.6030 #### [facility] [address] [place], [address] TIBC 278 ug/dL Normal 250-450 [facility] Comment on above: Order Comment: 542-1 Performed By: #### L 506.0200, L100.0600, L503.0106, L503.6030 #### [facility] [address] [place], [address] UIBC 251 ug/dL Normal 228-428 [facility] Comment on above: Order Comment: 542-1 Performed By: #### L 506.0200, L100.0600, L503.0106, L503.6030 #### [facility] [address] [place], [address] Vitamin B12on 07-07-2025 Cobalamin (Vitamin B12) [Mass/Vol] 334 pg/mL Normal 180-914 [facility] Comment on above: Order Comment: 542-1 Performed By: #### L 506.0200, L100.0600, L503.0106, L503.6030 #### [facility] [address] [place], [address] 36on 07-06-2025 36 Cr 1.9, K+ 3.7, hemoglobin 7.1 on 07/05/25. BP's mostly 100-110's/50/60's; one SBP outlier of 94, one outlier of 121. HR's 60-70's. Note from nursing: Normal [facility] 36 [facility] faxed 07/05/25 BMP, and CBC, and vitals. Records to be scanned to chart. Normal [facility] 36 Normal [facility] Basic Metabolic Profile (BMP )on 07-05-2025 BUN/CRE 20.8 RATIO High 06-28 [facility] Comment on above: Order Comment: 542-1 N Performed By: #### L 506.0200, L100.0600, L503.0106, L503.6030 #### [facility] [address] [place], [address] Calcium [Mass/Vol] 8.5 mg/dL Normal 7.6-11.0 [facility] Comment on above: Order Comment: 542-1 N Performed By: #### L 506.0200, L100.0600, L503.0106, L503.6030 #### [facility] [address] [place], [address] Chloride [Moles/Vol] 101 mmol/L Normal 98-108 [facility] Comment on above: Order Comment: 542-1 N Performed By: #### L 506.0200, L100.0600, L503.0106, L503.6030 #### [facility] [address] [place], [address] CO2 [Moles/Vol] 28.6 mmol/L Normal 21.0-32.0 [facility] Comment on above: Order Comment: 542-1 N Performed By: #### L 506.0200, L100.0600, L503.0106, L503.6030 #### [facility] [address] [place], [address] Creatinine [Mass/Vol] 1.90 mg/dL High 0.70-1.20 [facility] Comment on above: Order Comment: 542-1 N Performed By: #### L 506.0200, L100.0600, L503.0106, L503.6030 #### [facility] [address] [place], [address] GAP 10 Normal 5-15 [facility] Comment on above: Order Comment: 542-1 N Performed By: #### L 506.0200, L100.0600, L503.0106, L503.6030 #### [facility] [address] [place], [address] GFR/1.73 sq M.predicted among non-blacks MDRD (S/P/Bld) [Vol rate/Area] 33 mL/min/{1.73_m2} Low >60 [facility] Comment on above: Order Comment: 542-1 N Result Comment: mL/m in/1.73m2 CKD-EPI Creatinine Equation (2020) Performed By: #### L 506.0200, L100.0600, L503.0106, L503.6030 #### [facility] [address] [place], [address] Glucose [Mass/Vol] 92 mg/dL Normal 70-99 [facility] Comment on above: Order Comment: 542-1 N Performed By: #### L 506.0200, L100.0600, L503.0106, L503.6030 #### [facility] [address] [place], [address] Potassium [Moles/Vol] 3.7 mmol/L Normal 3.3-5.1 [facility] Comment on above: Order Comment: 542-1 N Performed By: #### L 506.0200, L100.0600, L503.0106, L503.6030 #### [facility] [address] [place], [address] Sodium [Moles/Vol] 140 mmol/L Normal 133-145 [facility] Comment on above: Order Comment: 542-1 N Performed By: #### L 506.0200, L100.0600, L503.0106, L503.6030 #### [facility] [address] [place], [address] Urea nitrogen [Mass/Vol] 40 mg/dL High 4-19 [facility] Comment on above: Order Comment: 542-1 N Performed By: #### L 506.0200, L100.0600, L503.0106, L503.6030 #### [facility] [address] [place], [address] CBC-Complete Blood Cnt No Di ffon 07-05-2025 Erythrocyte distribution width (RBC) [Ratio] 14.8 % High 11.6-14.6 [facility] Comment on above: Order Comment: 542-1 N Performed By: #### L 506.0200, L100.0600, L503.0106, L503.6030 #### [facility] [address] [place], [address] Hematocrit (Bld) [Volume fraction] 23.2 % Low 40-54 [facility] Comment on above: Order Comment: 542-1 N Performed By: #### L 506.0200, L100.0600, L503.0106, L503.6030 #### [facility] [address] [place], [address] Hemoglobin (Bld) [Mass/Vol] 7.1 g/dL Low 13.0-16.5 [facility] Comment on above: Order Comment: 542-1 N Performed By: #### L 506.0200, L100.0600, L503.0106, L503.6030 #### [facility] [address] [place], [address] MCH (RBC) [Entitic mass] 28.9 pg Normal 27.0-32.0 [facility] Comment on above: Order Comment: 542-1 N Performed By: #### L 506.0200, L100.0600, L503.0106, L503.6030 #### [facility] [address] [place], [address] MCHC (RBC) [Mass/Vol] 30.6 g/dL Low 32-36 [facility] Comment on above: Order Comment: 542-1 N Performed By: #### L 506.0200, L100.0600, L503.0106, L503.6030 #### [facility] [address] [place], [address] MCV (RBC) [Entitic vol] 94.3 fL High 80-94 [facility] Comment on above: Order Comment: 542-1 N Performed By: #### L 506.0200, L100.0600, L503.0106, L503.6030 #### [facility] [address] [place], [address] Platelet mean volume (Bld) [Entitic vol] 8.8 fL Normal 6.2-12.0 [facility] Comment on above: Order Comment: 542-1 N Performed By: #### L 506.0200, L100.0600, L503.0106, L503.6030 #### [facility] [address] [place], [address] Platelets (Bld) [#/Vol] 507 10*3/uL High 150-450 [facility] Comment on above: Order Comment: 542-1 N Performed By: #### L 506.0200, L100.0600, L503.0106, L503.6030 #### [facility] [address] [place], [address] RBC (Bld) [#/Vol] 2.46 10*6/uL Low 4.6-6.2 [facility] Comment on above: Order Comment: 542-1 N Performed By: #### L 506.0200, L100.0600, L503.0106, L503.6030 #### [facility] [address] [place], [address] RDW SD 49.7 fl High 35.1-43.9 [facility] Comment on above: Order Comment: 542-1 N Performed By: #### L 506.0200, L100.0600, L503.0106, L503.6030 #### [facility] [address] [place], [address] WBC (Bld) [#/Vol] 12.0 10*3/uL High 4.4-11.0 [facility] Comment on above: Order Comment: 542-1 N Performed By: #### L 506.0200, L100.0600, L503.0106, L503.6030 #### [facility] [address] [place], [address] Progress Noteon 06-30-2025 Progress Note Normal [facility] Basic Metabolic Profile (BMP )on 06-28-2025 BUN/CRE 23.4 RATIO High - [facility] Comment on above: Order Comment: 212.1 Performed By: #### L 500.2500 #### [facility] [address] [place], [address] Calcium [Mass/Vol] 8.4 mg/dL Normal 7.6-11.0 [facility] Comment on above: Order Comment: 212.1 Performed By: #### L 500.2500 #### [facility] [address] [place], [address] Chloride [Moles/Vol] 100 mmol/L Normal 98-108 [facility] Comment on above: Order Comment: 212.1 Performed By: #### L 500.2500 #### [facility] [address] [place], [address] CO2 [Moles/Vol] 27.4 mmol/L Normal 21.0-32.0 [facility] Comment on above: Order Comment: 212.1 Performed By: #### L 500.2500 #### [facility] [address] [place], [address] Creatinine [Mass/Vol] 1.72 mg/dL High 0.70-1.20 [facility] Comment on above: Order Comment: 212.1 Performed By: #### L 500.2500 #### [facility] [address] [place], [address] GAP 10 Normal 5-15 [facility] Comment on above: Order Comment: 212.1 Performed By: #### L 500.2500 #### [facility] [address] [place], [address] GFR/1.73 sq M.predicted among non-blacks MDRD (S/P/Bld) [Vol rate/Area] 38 mL/min/{1.73_m2} Low >60 [facility] Comment on above: Order Comment: 212.1 Result Comment: mL/m in/1.73m2 CKD-EPI Creatinine Equation (2020) Performed By: #### L 500.2500 #### [facility] [address] [place], [address] Glucose [Mass/Vol] 88 mg/dL Normal 70-99 [facility] Comment on above: Order Comment: 212.1 Performed By: #### L 500.2500 #### [facility] [address] [place], [address] Potassium [Moles/Vol] 3.9 mmol/L Normal 3.3-5.1 [facility] Comment on above: Order Comment: 212.1 Performed By: #### L 500.2500 #### [facility] [address] [place], [address] Sodium [Moles/Vol] 137 mmol/L Normal 133-145 [facility] Comment on above: Order Comment: 212.1 Performed By: #### L 500.2500 #### [facility] [address] [place], [address] Urea nitrogen [Mass/Vol] 40 mg/dL High 4-19 [facility] Comment on above: Order Comment: 212.1 Performed By: #### L 500.2500 #### [facility] [address] [place], [address] 36on 06-24-2025 36 Normal [facility] 36 Normal [facility] 36 06/24/25 BMP, blood pressure, pulse summary, and medication notes faxed from [facility]. Records scanned to Media. Normal [facility] Basic Metabolic Profile (BMP )on 06-24-2025 BUN/CRE 25.8 RATIO High 10-20 [facility] Comment on above: Order Comment: 212.1 Performed By: #### L 500.2500 #### [facility] [address] [place], [address] Calcium [Mass/Vol] 8.4 mg/dL Normal 7.6-11.0 [facility] Comment on above: Order Comment: 212.1 Performed By: #### L 500.2500 #### [facility] [address] [place], [address] Chloride [Moles/Vol] 97 mmol/L Low 98-108 [facility] Comment on above: Order Comment: 212.1 Performed By: #### L 500.2500 #### [facility] [address] [place], [address] CO2 [Moles/Vol] 26.9 mmol/L Normal 21.0-32.0 [facility] Comment on above: Order Comment: 212.1 Performed By: #### L 500.2500 #### [facility] [address] [place], [address] Creatinine [Mass/Vol] 1.80 mg/dL High 0.70-1.20 [facility] Comment on above: Order Comment: 212.1 Performed By: #### L 500.2500 #### [facility] [address] [place], [address] GAP 12 Normal 5-15 [facility] Comment on above: Order Comment: 212.1 Performed By: #### L 500.2500 #### [facility] [address] [place], [address] GFR/1.73 sq M.predicted among non-blacks MDRD (S/P/Bld) [Vol rate/Area] 36 mL/min/{1.73_m2} Low >60 [facility] Comment on above: Order Comment: 212.1 Result Comment: mL/m in/1.73m2 CKD-EPI Creatinine Equation (2020) Performed By: #### L 500.2500 #### [facility] [address] [place], [address] Glucose [Mass/Vol] 87 mg/dL Normal 70-99 [facility] Comment on above: Order Comment: 212.1 Performed By: #### L 500.2500 #### [facility] [address] [place], [address] Potassium [Moles/Vol] 3.8 mmol/L Normal 3.3-5.1 [facility] Comment on above: Order Comment: 212.1 Performed By: #### L 500.2500 #### [facility] [address] [place], [address] Sodium [Moles/Vol] 137 mmol/L Normal 133-145 [facility] Comment on above: Order Comment: 212.1 Performed By: #### L 500.2500 #### [facility] [address] [place], [address] Urea nitrogen [Mass/Vol] 47 mg/dL High 4-19 [facility] Comment on above: Order Comment: 212.1 Performed By: #### L 500.2500 #### [facility] [address] [place], [address] Progress Noteon 06-24-2025 Progress Note Attempted to meet with pt. He no longer resides here. Facility uncertain where he has moved to. Message left on primary contacts number Bereket to return call to the palliative group at [phone] [facility] BASIC METABOLIC PANELon 06-09 Anion gap [Moles/Vol] 15 mmol/L High 3-13 [facility] Comment on above: Performed By: #### L AB15 ####[employer]ator [employer] Drafter Supervisor: UNA ARCE ([phone])[facility] ([facility])[address] Calcium [Mass/Vol] 8.4 mg/dL Low 8.8-10.0 [facility] Comment on above: Performed By: #### L AB15 ####[employer] Supervisor: UNA ARCE ([phone])[facility] ([facility])[address] Chloride [Moles/Vol] 97 mmol/L Low 98-107 [facility] Comment on above: Performed By: #### L AB15 ####[employer]fter Supervisor: UNA MOHRCER ([phone])[facility] [place] ([facility])[address] CO2 [Moles/Vol] 25 mmol/L Normal 23-31 [facility] Comment on above: Performed By: #### L AB15 ####[employer] Drafter Supervisor: UNA ARCE ([phone])[facility] [place] ([facility])[address] Creatinine [Mass/Vol] 1.97 mg/dL High 0.72-1.25 [facility] Comment on above: Performed By: #### L AB15 ####[employer] Supervisor: UNA STAUFFERMELANIE ([phone])[facility] [place] ([facility])[address] GLOMERULAR FILTRATION RATE ML/MIN/1.73 SQ M.PREDICTED 31.9 mL/min/1.73m*2 Low >60.0 [facility] Comment on above: Result Comment: Calc ulation based on the Chronic Kidney Disease Epidemiology Collaboration (CKD-EPI) equation refit without adjustment for race Performed By: #### L AB15 ####[employer]fter Supervisor: UNA ARCE ([phone])[facility] [place] ([facility])[address] Glucose [Mass/Vol] 108 mg/dL Normal 82-115 [facility] Comment on above: Performed By: #### L AB15 ####[employer]ator [employer] Drafter Supervisor: UNA ARCE ([phone])[facility] (SB[facility])[address] Potassium [Moles/Vol] 4.1 mmol/L Normal 3.5-5.1 [facility] Comment on above: Result Comment: [facility] potassium values may be up to 0.5 mmol/L lower than serum values. Performed By: #### L AB15 ####[employer] Supervisor: UNA ARCE ([phone])[facility] ([facility])[address] Sodium [Moles/Vol] 137 mmol/L Normal 136-145 [facility] Comment on above: Performed By: #### L AB15 ####[employer] Drafter Supervisor: UNA ARCE ([phone])[facility] Urea nitrogen [Mass/Vol] 51 mg/dL High 9-23 [facility] Comment on above: Performed By: #### L AB15 ####[employer]fter Supervisor: UNA ARCE ([phone])[facility] BLOOD TYPE AND SCREEN GELon 06-21-2025 ABO GROUPING A Normal [facility] Comment on above: Performed By: #### L [id number] ####[employer]ator [employer] Drafter Supervisor: UNA ARCE ([phone])[facility] ([facility])[address] [place] [address] RH TYPE IN BLOOD Negative Normal [facility] Comment on above: Performed By: #### L [id number] ####[employer]ator [employer] Drafter Supervisor: UNA ARCE ([phone])[facility] ([facility])[address] [place] [address] Basic Metabolic Profile (BMP )on 06-21-2025 BUN/CRE 25.4 RATIO High 10-20 [facility] Comment on above: Order Comment: 212.1 Performed By: #### L 100.0500, L500.2500 #### [facility] [address] [place], [address] Calcium [Mass/Vol] 8.4 mg/dL Normal 7.6-11.0 [facility] Comment on above: Order Comment: 212.1 Performed By: #### L 100.0500, L500.2500 #### [facility] [address] [place], [address] Chloride [Moles/Vol] 97 mmol/L Low 98-108 [facility] Comment on above: Order Comment: 212.1 Performed By: #### L 100.0500, L500.2500 #### [facility] [address] [place], [address] CO2 [Moles/Vol] 29.6 mmol/L Normal 21.0-32.0 [facility] Comment on above: Order Comment: 212.1 Performed By: #### L 100.0500, L500.2500 #### [facility] [address] [place], [address] Creatinine [Mass/Vol] 1.86 mg/dL High 0.70-1.20 [facility] Comment on above: Order Comment: 212.1 Performed By: #### L 100.0500, L500.2500 #### [facility] [address] [place], [address] GAP 10 Normal 5-15 [facility] Comment on above: Order Comment: 212.1 Performed By: #### L 100.0500, L500.2500 #### [facility] [address] [place], [address] GFR/1.73 sq M.predicted among non-blacks MDRD (S/P/Bld) [Vol rate/Area] 34 mL/min/{1.73_m2} Low >60 [facility] Comment on above: Order Comment: 212.1 Result Comment: mL/m in/1.73m2 CKD-EPI Creatinine Equation (2020) Performed By: #### L 100.0500, L500.2500 #### [facility] [address], [address] Glucose [Mass/Vol] 93 mg/dL Normal 70-99 [facility] Comment on above: Order Comment: 212.1 Performed By: #### L 100.0500, L500.2500 #### [facility] [address] [place], [address] Potassium [Moles/Vol] 3.8 mmol/L Normal 3.3-5.1 [facility] Comment on above: Order Comment: 212.1 Performed By: #### L 100.0500, L500.2500 #### [facility] [address] [place], [address] Sodium [Moles/Vol] 136 mmol/L Normal 133-145 [facility] Comment on above: Order Comment: 212.1 Performed By: #### L 100.0500, L500.2500 #### [facility] [address] [place], [address] Urea nitrogen [Mass/Vol] 47 mg/dL High 4-19 [facility] Comment on above: Order Comment: 212.1 Performed By: #### L 100.0500, L500.2500 #### [facility] [address] [place], [address] Basic metabolic 1998 panelon 06-21-2025 Anion gap [Moles/Vol] 15 mmol/L High 3 - 13 mmol/L [facility] Calcium [Mass/Vol] 8.4 mg/dL Low 8.8 - 10. 0 mg/dL [facility] Chloride [Moles/Vol] 97 mmol/L Low 98 - 10 7 mmol/L [facility] CO2 [Moles/Vol] 25 mmol/L 23 - 31 mmol/L [facility] Creatinine [Mass/Vol] 1.97 mg/dL High 0.72 - 1.25 mg/dL [facility] GFR/1.73 sq M.predicted (S/P/Bld) [Vol rate/Area] 31.9 mL/min Low - PINF [facility] Comment on above: Calculation based on the Chronic Kidney Disease Epidemiology Collaboration (CKD-EPI) equation refit without adjustment for race Glucose [Mass/Vol] 108 mg/dL 82 - 115 mg/dL [facility] Interpretation and review of laboratory results Abnormal [facility] Potassium [Moles/Vol] 4.1 mmol/L 3.5 - 5.1 mmol/L [facility] Comment on above: Plasma potassium traci ues may be up to 0.5 mmol/L lower than serum values. Sodium [Moles/Vol] 137 mmol/L 136 - 145 mmol/L [facility] Urea nitrogen [Mass/Vol] 51 mg/dL High 9 - 23 mg/d L [facility] Blood type and Crossmatch pa valente (Bld)on 06-21-2025 ABO group Nom (Bld) A [facility] Blood group antibody screen GEL Ql Negative [facility] D Ag Ql (RBC) Negative [facility] CBC W Auto Differential pane l (Bld)Ordered By: Sallie Powell on 06-21-2025 Erythrocyte distribution width (RBC) [Ratio] 16.7 % High 11.5 - 15.0 % [facility] Hematocrit (Bld) [Volume fraction] 23.3 % Low 40.0 - 52.0 % [facility] Hemoglobin (Bld) [Mass/Vol] 7.4 g/dL Low 13.0 - 18.0 g/dL [facility] Interpretation and review of laboratory results Abnormal [facility] MCH (RBC) [Entitic mass] 29 pg 26. 0 - 34.0 pg [facility] MCHC (RBC) [Mass/Vol] 31.8 % 30.5 - 36.0 % [facility] MCV (RBC) [Entitic vol] 91.4 fL 77.0 - 99.0 fL [facility] Platelet mean volume (Bld) [Entitic vol] 8.5 fL Low 9.0 - 12.7 fL [facility] Platelets (Bld) [#/Vol] 513 10*3/uL High 140 - 440 10*3/uL [facility] RBC (Bld) [#/Vol] 2.55 10*6/uL Low 4.40 - 5.9 0 10*6/uL [facility] WBC (Bld) [#/Vol] 16.8 10*3/uL High 3.6 - 10.7 10*3/uL [facility] CBC WITH AUTO DIFFERENTIALon 06-21-2025 Erythrocyte distribution width (RBC) [Ratio] 16.7 % High 11.5-15.0 [facility] Comment on above: Performed By: #### L [id number], [id number] ####[employer] Drafter Supervisor: UNA ARCE ([phone])[facility] [place] ([facility])[address] Hematocrit (Bld) [Volume fraction] 23.3 % Low 40.0-52.0 [facility] Comment on above: Performed By: #### L [id number], [id number] ####[employer]ator And Drafter Supervisor: UNA ARCE ([phone])[facility] ([facility])[address] Hemoglobin (Bld) [Mass/Vol] 7.4 g/dL Low 13.0-18.0 [facility] Comment on above: Performed By: #### L [id number], [id number] ####[employer]ator And Drafter Supervisor: UNA ARCE ([phone])[facility] [place] ([facility])[address] MCH (RBC) [Entitic mass] 29.0 pg Normal 26.0-34.0 [facility] Comment on above: Performed By: #### L [id number], [id number] ####[employer]ator And Drafter Supervisor: UNA ARCE ([phone])[facility] ([facility])[address] MCHC 31.8 % Normal 30.5-36.0 [facility] Comment on above: Performed By: #### L [id number], [id number] ####[employer]ator [employer] Drafter Supervisor: UNA ARCE ([id number])[facility] ([facility])[address] MCV (RBC) [Entitic vol] 91.4 fL Normal 77.0-99.0 [facility] Comment on above: Performed By: #### L [id number], [id number] ####[employer]ator [employer] Drafter Supervisor: UNA ARCE ([phone])[facility] ([facility])[address] Platelet mean volume (Bld) [Entitic vol] 8.5 fL Low 9.0-12.7 [facility] Comment on above: Performed By: #### L [id number], [id number] ####[employer]ator And Drafter Supervisor: UNA ARCE ([phone])[facility] ([facility])[address] Platelets (Bld) [#/Vol] 513 10*3/uL High 140-440 [facility] Comment on above: Performed By: #### L [id number], [id number] ####[employer]ator And Drafter Supervisor: UNA ARCE ([phone])[facility] ([facility])[address] RBC (Bld) [#/Vol] 2.55 10*6/uL Low 4.40-5.90 [facility] Comment on above: Performed By: #### L [id number], [id number] ####[employer]ator [employer] Drafter Supervisor: UNA ARCE ([phone])[facility] [facility] (SBHLAB)[address] WBC (Bld) [#/Vol] 16.8 10*3/uL High 3.6-10.7 [facility] Comment on above: Performed By: #### L [id number], [id number] ####Estimator And Drafter Supervisor: UNA ARCE ([phone])[facility]ITALAngel SANCHEZFOUR [facility] ([facility])[address] CBC-Complete Blood Cnt No Di ffon 06-21-2025 Erythrocyte distribution width (RBC) [Ratio] 16.8 % High 11.6-14.6 [facility] Comment on above: Order Comment: 212.1 Performed By: #### L 100.0500, L500.2500 #### [facility] [address] [place], [address] Hematocrit (Bld) [Volume fraction] 21.5 % Low 40-54 [facility] Comment on above: Order Comment: 212.1 Performed By: #### L 100.0500, L500.2500 #### [facility] [address] [place], [address] Hemoglobin (Bld) [Mass/Vol] 6.9 g/dL Low 13.0-16.5 [facility] Comment on above: Order Comment: 212.1 Performed By: #### L 100.0500, L500.2500 #### [facility] [address] [place], [address] MCH (RBC) [Entitic mass] 28.8 pg Normal 27.0-32.0 [facility] Comment on above: Order Comment: 212.1 Performed By: #### L 100.0500, L500.2500 #### [facility] [address] [place], [address] MCHC (RBC) [Mass/Vol] 32.1 g/dL Normal 32-36 [facility] Comment on above: Order Comment: 212.1 Performed By: #### L 100.0500, L500.2500 #### [facility] [address] [place], [address] MCV (RBC) [Entitic vol] 89.6 fL Normal 80-94 [facility] Comment on above: Order Comment: 212.1 Performed By: #### L 100.0500, L500.2500 #### [facility] [address] [place], [address] Platelet mean volume (Bld) [Entitic vol] 8.7 fL Normal 6.2-12.0 [facility] Comment on above: Order Comment: 212.1 Performed By: #### L 100.0500, L500.2500 #### [facility] [address] [place], [address] Platelets (Bld) [#/Vol] 457 10*3/uL High 150-450 [facility] Comment on above: Order Comment: 212.1 Performed By: #### L 100.0500, L500.2500 #### [facility] [address] [place], [address] RBC (Bld) [#/Vol] 2.40 10*6/uL Low 4.6-6.2 [facility] Comment on above: Order Comment: 212.1 Performed By: #### L 100.0500, L500.2500 #### [facility] [address] [place], [address] RDW SD 55.8 fl High 35.1-43.9 [facility] Comment on above: Order Comment: 212.1 Performed By: #### L 100.0500, L500.2500 #### [facility] [address] [place], [address] WBC (Bld) [#/Vol] 14.3 10*3/uL High 4.4-11.0 [facility] Comment on above: Order Comment: 212.1 Performed By: #### L 100.0500, L500.2500 #### [facility] [address] [place], [address] ECG 12-LEADon 06-21-2025 ECG 12-LEAD IMPRESSION: Sinus rhythm Atrial premature complexes Left anterior fascicular block Similar to prior on 04/13/25 Electronically Signed On 06-21-2025 23:12:12 EDT by Sagar Gilliam [facility] ED Nursing Noteon 06-21-2025 ED Nursing Note This RN at bedside for first 15 minutes of blood transfusion. Pt tolerating transfusion. VS updated in system. [facility] ED Nursing Note Patient arrives via EMS from [facility] following bloodwork that showed low hemoglobin. No overt signs of bleeding on arrival. Patient A&O4. Patient does endorse previous blood transfusions. Normal [facility] ED Provider Noteon ED Provider Note Normal [facility] - Hematology and Cell countson 06-21-2025 Eosinophils (Bld) [#/Vol] 0.3 10*3/uL 0.0 - 0.5 10*3/uL [facility] Eosinophils/100 WBC (Bld) 2 % 0 - 6 % [facility] Giant platelets LM Ql (Bld) Rare Abnormal (none) [facility] Hypochromia Ql (Bld) Slight Abnormal (none) [facility] Lymphocytes (Bld) [#/Vol] 4 10*3/uL 1.0 - 4.3 10*3/uL [facility] Lymphocytes/100 WBC (Bld) 24 % 15 - 45 % [facility] Monocytes (Bld) [#/Vol] 1.2 10*3/uL High 0.0 - 0.9 10*3/uL [facility] Monocytes/100 WBC (Bld) 7 % 5 - 13 % [facility] Neutrophils (Bld) [#/Vol] 11.3 10*3/uL High 1.8 - 7.5 10*3/uL [facility] Ovalocytes LM Ql (Bld) Rare Abnormal (none) [facility] RBC morphology finding Nom (Bld) abnormal [facility] Segmented neutrophils/100 WBC (Bld) 67 % 38 - 82 % [facility] MANUAL DIFFERENTIAL (CELLAVI BANDAR)on 06-21-2025 BAND NEUTROPHILS TOTAL PER COUNTED LEUKOCYTES BY MANUAL COUNT Normal [facility] Comment on above: Performed By: #### L [id number], [id number] ####Estimator And Drafter Supervisor: UNA ARCE ([phone])[facility]ITALAngel ESC[facility] ([facility])[address] [place] [address] BASOPHILS TOTAL PER COUNTED LEUKOCYTES BY MANUAL COUNT Normal [facility] Comment on above: Performed By: #### L [id number], [id number] ####Estimator And Drafter Supervisor: UNA ARCE ([phone])[facility]ITALAngel [place] (SBHLAB)[address] [place] [address] [place] BLASTS TOTAL PER COUNTED LEUKOCYTES BY MANUAL COUNT Normal [facility] Comment on above: Performed By: #### L [id number], [id number] ####Estimator And Drafter Supervisor: UNA ARCE ([phone])[facility] (SBHLAB)[address] [place] [address] [place] EOSINOPHILS (10*3/UL) IN BLOOD-CELLAVISION 0.3 10*3/uL Normal 0.0-0.5 [facility] Comment on above: Performed By: #### L [id number], [id number] ####Estimator And Drafter Supervisor: UNA ARCE ([phone])[facility] (SBHLAB)[address] [place] [address] [place] EOSINOPHILS TOTAL PER COUNTED LEUKOCYTES BY MANUAL COUNT 2 High 0-1 [facility] Comment on above: Performed By: #### L [id number], [id number] ####Estimator And Drafter Supervisor: UNA ARCE ([phone])[facility] (SBHLAB)[address] [place] [address] [place] EOSINOPHILS/100 LEUKOCYTES IN BLOOD-CELLAVISION 2 % Normal 0-6 [facility] Comment on above: Performed By: #### L [id number], [id number] ####Estimator And Drafter Supervisor: UNA ARCE ([phone])[facility] [place] [address] [place] HYPOCHROMIA (PRESENCE) IN BLOOD BY LIGHT MICROSCOPY Slight Abnormal (none) [facility] Comment on above: Performed By: #### L [id number], [id number] ####Estimator And Drafter Supervisor: UNA ARCE ([phone])[facility] ([facility] [place] [address] [place] LYMPHOCYTES (10*3/UL) IN BLOOD-CELLAVISION 4.0 10*3/uL Normal 1.0-4.3 [facility] Comment on above: Performed By: #### L [id number], [id number] ####Estimator And Drafter Supervisor: UNA [phone])[facility] (SBHLAB)[address] [place] [address] [place] LYMPHOCYTES TOTAL PER COUNTED LEUKOCYTES BY MANUAL COUNT 24 Normal [facility] Comment on above: Performed By: #### L [id number], [id number] ####Estimator And Drafter Supervisor: UNA ARCE ([phone])[facility] (SBHLAB)[address] [place] [address] [place] LYMPHOCYTES/100 LEUKOCYTES IN BLOOD-CELLAVISION 24 % Normal 15-45 [facility] Comment on above: Performed By: #### L [id number], [id number] ####Estimator And Drafter Supervisor: UNA ARCE ([phone])[facility] [place] (SBHLAB)[address] [place] [address] [place] METAMYELOCYTES TOTAL PER COUNTED LEUKOCYTES BY MANUAL COUNT Normal [facility] Comment on above: Performed By: #### L [id number], [id number] ####Estimator And Drafter Supervisor: UNA ARCE ([phone])[facility] [place] (SBHLAB)[address] [place] [address] [place] MONOCYTES (10*3/UL) IN BLOOD-CELLAVISION 1.2 10*3/uL High 0.0-0.9 [facility] Comment on above: Performed By: #### L [id number], [id number] ####Estimator And Drafter Supervisor: UNA ARCE ([phone])[facility] [place] (SBHLAB)[address] [place] [address] [place] MONOCYTES TOTAL PER COUNTED LEUKOCYTES BY MANUAL COUNT 7 Normal [facility] Comment on above: Performed By: #### L [id number], [id number] ####Estimator And Drafter Supervisor: UNA ARCE ([phone])[facility] [place] (SBHLAB)[address] [place] [address] [place] MONOCYTES/100 LEUKOCYTES IN BLOOD-LUCIANA 7 % Normal 5-13 [facility] Comment on above: Performed By: #### L [id number], [id number] ####Estimator And Drafter Supervisor: UNA ARCE ([phone])[facility] (SBHLAB)[address] [place] [address] [place] MYELOCYTES COUNTED BY MANUAL COUNT Normal [facility] Comment on above: Performed By: #### L [id number], [id number] ####Estimator And Drafter Supervisor: UNA STAUFFERMELANIE ([phone])[facility] (SBHLAB)[address] [place] [address] [place] NEUTROPHILS TOTAL PER COUNTED LEUKOCYTES BY MANUAL COUNT 67 Normal [facility] Comment on above: Performed By: #### L [id number], [id number] ####Estimator And Drafter Supervisor: UNA BERMUDEZPEDRO ([phone])[facility] [place] (SBHLAB)[address] [place] [address] [place] OVALOCYTES PRESENCE IN BLOOD BY LIGHT MICROSCOPY Rare Abnormal (none) [facility] Comment on above: Performed By: #### L [id number], [id number] ####Estimator And Drafter Supervisor: UNA ARCE ([phone])[facility] [place] (SBHLAB)[address] [place] [address] [place] PLATELETS GIANT PRESENCE IN BLOOD BY LIGHT MICROSCOPY Rare Abnormal (none) [facility] Comment on above: Performed By: #### L [id number], [id number] ####Estimator And Drafter Supervisor: UNA ARCE ([phone])[facility] [place] (SBHLAB)[address] [place] [address] [place] PROMYELOCYTES TOTAL PER COUNTED LEUKOCYTES BY MANUAL COUNT Normal [facility] Comment on above: Performed By: #### L [id number], [id number] ####Estimator And Drafter Supervisor: UNA ARCE ([phone])[facility] [place] (SBHLAB)[address] [place] [address] [place] RBC MORPHOLOGY IN BLOOD abnormal Normal [facility] Comment on above: Performed By: #### L [id number], [id number] ####Estimator And Drafter Supervisor: UNA ARCE ([phone])[facility] [place] (SBHLAB)[address] [place] [address] [place] SEGMENTED NEUTROPHILS (10*3/UL) IN BLOOD-CELLAVISION 11.3 10*3/uL High 1.8-7.5 [facility] Comment on above: Performed By: #### L [id number], [id number] ####Estimator And Drafter Supervisor: UNA STAUFFERMELANIE ([phone])[facility] (SBHLAB)[address] SEGMENTED NEUTROPHILS/100 LEUKOCYTES-CE 67 % Normal 38-82 [facility] Comment on above: Performed By: #### L [id number], [id number] ####Estimator And Drafter Supervisor: UNA BERMUDEZPEDRO ([phone])[facility] [place] (SBHLAB)[address] UNCLASSIFIED CELLS TOTAL PER COUNTED LEUKOCYTES BY MANUAL COUNT [facility] Comment on above: Performed By: #### L [id number], [id number] ####Estimator And Drafter Supervisor: UNA STAUFFERMELANIE ([phone])[facility] [place] (SBHLAB)[address] VARIANT LYMPHOCYTES TOTAL PER COUNTED LEUKOCYTES BY MANUAL COUNT [facility] Comment on above: Performed By: #### L [id number], [id number] ####Estimator And Drafter Supervisor: UNA BERMUDEZPEDRO ([phone])[facility] [place] (SBHLAB)[address] No Panel Informationon 06-21 P [place] 17 degrees [facility] TX Interval 189 ms [facility] QRS [place] -50 degrees [facility] QRSD Interval [address] [facility] QT Interval 434 ms [facility] QTC Interval 436 ms [facility] T Wave [place] 37 degrees [facility] Sinus rhythm Atrial premature complexes Left anterior fascicular block Similar to prior on 04/13/25 Electronically Signed On 06-21-2025 23:12:12 EDT by Sagar Posey, - 06/21/2025 IMPRESSION: Sinus rhythm Atrial premature complexes Left anterior fascicular block Similar to prior on 04/13/25 Electronically Signed On 06-21-2025 23:12:12 EDT by Sagar Gilliam [facility] Blood Expiration Date [id number] [facility] Crossmatch interpretation COMP [facility] Dispense Status Transfused [facility] lt Product Blood Type 600 [facility] PRODUCT CODE [id number] [facility] Unit ABO A [facility] Unit Number [id number] [facility] Unit RH Negative [facility] Unit Volume 300 mL [facility] Atypical Lymphocytes Manual [facility] Bands Manual [facility] Basophils Manual [facility] alth Blasts Manual [facility] Healt h Eosinophils Manual 2 High 0 - 1 [facility] Interpretation and review of laboratory results Abnormal [facility] Lymphocytes Manual 24 [facility] Metamyelocytes Manual [facility] Monocytes Manual 7 [facility] alth Myelocytes Manual [facility] ealt Neutrophils Manual 67 [facility] Promyelocytes Manual [facility] Unclassified Cells, Manual [facility] Vital signson 06-21-2025 Heart rate 63 /min bpm [facility] 36on 06-18-2025 36 Noted; thank you. Normal [facility]alt System SHS 36on 06-17-2025 36 Normal [facility] 36 Normal [facility] BASIC METABOLIC PANELon Anion gap [Moles/Vol] 13 mmol/L Normal 3-13 [facility] Comment on above: Performed By: #### L [id number] ####Estimator And Drafter Supervisor: ANAHY AVILA ([phone])[facility] [place]AN [place] (SWRLAB)[address] [place] [address] [place] Calcium [Mass/Vol] 9.2 mg/dL Normal 8.8-10.0 [facility] Comment on above: Performed By: #### L [id number] ####Estimator And Drafter Supervisor: ANAHY AVILA ([phone])[facility] [place] (SWRLAB)[address] [place] [address] [place] Chloride [Moles/Vol] 98 mmol/L Normal 98-107 [facility] Comment on above: Performed By: #### L [id number] ####Estimator And Drafter Supervisor: ANAHY AVILA ([phone])[facility] [place] (SWRLAB)[address] [place] [address] [place] CO2 [Moles/Vol] 29 mmol/L Normal 23-31 [facility] Comment on above: Performed By: #### L [id number] ####Estimator And Drafter Supervisor: ANAHY AVILA ([phone])[facility]ITALAngel [place] (SWRLAB)[address] [place] [address] [place] Creatinine [Mass/Vol] 2.05 mg/dL High 0.72-1.25 [facility] Comment on above: Performed By: #### L [id number] ####Estimator And Drafter Supervisor: ANAHY AVILA ([phone])[facility]ITAL[facility] [place] (SWRLAB)[address] [place] [address] [place] GLOMERULAR FILTRATION RATE ML/MIN/1.73 SQ M.PREDICTED 30.4 mL/min/1.73m*2 Low >60.0 [facility] Comment on above: Result Comment: Calc ulation based on the Chronic Kidney Disease Epidemiology Collaboration (CKD-EPI) equation refit without adjustment for race Performed By: #### L [id number] ####Estimator And Drafter Supervisor: ANAHY AVILA ([phone])[facility] [place] (SWRLAB)[address] [place] [address] [place] Glucose [Mass/Vol] 109 mg/dL Normal 82-115 [facility] Comment on above: Performed By: #### L [id number] ####Estimator And Drafter Supervisor: ANAHY AVILA ([phone])[facility] [place] (SWRLAB)[address] [place] [address] [place] Potassium [Moles/Vol] 4.3 mmol/L Normal 3.5-5.1 [facility] Comment on above: Result Comment: [facility] potassium values may be up to 0.5 mmol/L lower than serum values. Performed By: #### L [id number] ####Estimator And Drafter Supervisor: ANAHY AVILA ([phone])[facility]ITAL[facility] [place] (SWRLAB)[address] [place] [address] [place] Sodium [Moles/Vol] 140 mmol/L Normal 136-145 [facility] Comment on above: Performed By: #### L [id number] ####Estimator And Drafter Supervisor: ANAHY AVILA ([phone])[facility] SID (SWRLAB)[address] Urea nitrogen [Mass/Vol] 54 mg/dL High 9-23 [facility] Comment on above: Performed By: #### L [id number] ####Estimator And Drafter Supervisor: ANAHY AVILA ([phone])[facility] SID (SWRLAB)[address] Basic metabolic 1998 panelon 06-17-2025 Anion gap [Moles/Vol] 13 mmol/L 3 - 13 mmol/L [facility] Calcium [Mass/Vol] 9.2 mg/dL 8.8 - 10. 0 mg/dL [facility] Chloride [Moles/Vol] 98 mmol/L 98 - 10 7 mmol/L [facility] CO2 [Moles/Vol] 29 mmol/L 23 - 31 mmol/L [facility] Creatinine [Mass/Vol] 2.05 mg/dL High 0.72 - 1.25 mg/dL [facility] GFR/1.73 sq M.predicted (S/P/Bld) [Vol rate/Area] 30.4 mL/min Low - PINF [facility] Comment on above: Calculation based on the Chronic Kidney Disease Epidemiology Collaboration (CKD-EPI) equation refit without adjustment for race Glucose [Mass/Vol] 109 mg/dL 82 - 115 mg/dL [facility] Interpretation and review of laboratory results Abnormal [facility] Potassium [Moles/Vol] 4.3 mmol/L 3.5 - 5.1 mmol/L [facility] Comment on above: Plasma potassium traci ues may be up to 0.5 mmol/L lower than serum values. Sodium [Moles/Vol] 140 mmol/L 136 - 145 mmol/L [facility] Urea nitrogen [Mass/Vol] 54 mg/dL High 9 - 23 mg/d L [facility] CBC W Auto Differential pane l (Bld)Ordered By: Jessica Maldonado on 06-17-2025 Basophils (Bld) [#/Vol] 0.1 10*3/uL 0.0 - 0.2 10*3/uL [facility] Basophils/100 WBC (Bld) 0.7 % 0.0 - 2.0 % [facility] Eosinophils (Bld) [#/Vol] 0.4 10*3/uL 0.0 - 0.5 10*3/uL [facility] Eosinophils/100 WBC (Bld) 2.2 % 0.0 - 6.0 % [facility] Erythrocyte distribution width (RBC) [Ratio] 17.2 % High 11.5 - 15.0 % [facility] Hematocrit (Bld) [Volume fraction] 25.7 % Low 40.0 - 52.0 % [facility] Hemoglobin (Bld) [Mass/Vol] 8.2 g/dL Low 13.0 - 18.0 g/dL [facility] Immature granulocytes (Bld) [#/Vol] 0.2 10*3/uL High NINF - 0.1 10*3/uL [facility] Immature granulocytes/100 WBC (Bld) 1 % 0.0 - 2.0 % [facility] Interpretation and review of laboratory results Abnormal [facility] Lymphocytes (Bld) [#/Vol] 2.9 10*3/uL 1.0 - 4.3 10*3/uL [facility] Lymphocytes/100 WBC (Bld) 17.2 % 15.0 - 45.0 % [facility] MCH (RBC) [Entitic mass] 29.1 pg 26. 0 - 34.0 pg [facility] MCHC (RBC) [Mass/Vol] 31.9 % 30.5 - 36.0 % [facility] MCV (RBC) [Entitic vol] 91.1 fL 77.0 - 99.0 fL [facility] Monocytes (Bld) [#/Vol] 1.5 10*3/uL High 0.0 - 0.9 10*3/uL [facility] Monocytes/100 WBC (Bld) 9.1 % 5.0 - 13.0 % [facility] Neutrophils (Bld) [#/Vol] 11.5 10*3/uL High 1.8 - 7.5 10*3/uL [facility] Neutrophils/100 WBC (Bld) 69.8 % 38.0 - 82.0 % [facility] Nucleated RBC/100 WBC (Bld) [Ratio] 0 % [facility] Platelet mean volume (Bld) [Entitic vol] 8.7 fL Low 9.0 - 12.7 fL [facility] Comment on above: MPV is a calculated measurement using platelet volume ratio Platelets (Bld) [#/Vol] 517 10*3/uL High 140 - 440 10*3/uL [facility] RBC (Bld) [#/Vol] 2.82 10*6/uL Low 4.40 - 5.9 0 10*6/uL [facility] WBC (Bld) [#/Vol] 16.5 10*3/uL High 3.6 - 10.7 10*3/uL [facility] Moderate Anisocytosi s Slight Hypochromia [facility] CBC WITH AUTO DIFFERENTIALon 06-17-2025 Basophils (Bld) [#/Vol] 0.1 10*3/uL Normal 0.0-0.2 [facility] Comment on above: Performed By: #### L [id number] ####Estimator And Drafter Supervisor: ANAHY AVILA ([phone])[facility] [place] (SWRLAB)[address] [place] [address] [place] Basophils/100 WBC (Bld) 0.7 % Normal 0.0-2.0 [facility] Comment on above: Performed By: #### L [id number] ####Estimator And Drafter Supervisor: ANAHY AVILA ([phone])[facility] [place] (SWRLAB)[address] [place] [address] [place] Eosinophils (Bld) [#/Vol] 0.4 10*3/uL Normal 0.0-0.5 [facility] Comment on above: Performed By: #### L [id number] ####Estimator And Drafter Supervisor: ANAHY AVILA ([phone])[facility] [place] [place] (SWRLAB)[address] [place] [address] [place] Eosinophils/100 WBC (Bld) 2.2 % Normal 0.0-6.0 [facility] Comment on above: Performed By: #### L [id number] ####Estimator And Drafter Supervisor: ANAHY AVILA ([phone])[facility] [place] (SWRLAB)[address] [place] [address] Erythrocyte distribution width (RBC) [Ratio] 17.2 % High 11.5-15.0 [facility] Comment on above: Performed By: #### L [id number] ####Estimator And Drafter Supervisor: ANAHY AVILA ([phone])[facility] [place] (SWRLAB)[address] [place] [address] Hematocrit (Bld) [Volume fraction] 25.7 % Low 40.0-52.0 [facility] Comment on above: Performed By: #### L [id number] ####Estimator And Drafter Supervisor: ANAHY AVILA ([phone])[facility] [place] (SWRLAB)[address] [place] [address] Hemoglobin (Bld) [Mass/Vol] 8.2 g/dL Low 13.0-18.0 [facility] Comment on above: Performed By: #### L [id number] ####Estimator And Drafter Supervisor: ANAHY AVILA ([phone])[facility] [place] (SWRL[place])[address] [place] [address] IMMATURE GRANS % 1.0 % Normal 0.0-2.0 [facility] Comment on above: Performed By: #### L [id number] ####Estimator And Drafter Supervisor: ANAHY AVILA ([phone])[facility] (SWRLAB)[address] [place] [address] IMMATURE GRANS ABSOLUTE 0.2 10*3/uL High <0.1 [facility] Comment on above: Result Comment: ORDE R COMMENTS:Moderate AnisocytosisSlight Hypochromia Performed By: #### L [id number] ####Estimator And Drafter Supervisor: ANAHY AVILA ([phone])[facility] [place] (SWRL[place])[address] [place] [address] Lymphocytes (Bld) [#/Vol] 2.9 10*3/uL Normal 1.0-4.3 [facility] Comment on above: Performed By: #### L [id number] ####Estimator And Drafter Supervisor: ANAHY AVILA ([phone])[facility] [place] (SWRLAB)[address] [place] [address] [place] Lymphocytes/100 WBC (Bld) 17.2 % Normal 15.0-45.0 [facility] Comment on above: Performed By: #### L [id number] ####Estimator And Drafter Supervisor: ANAHY AVILA ([phone])[facility] [place] (SWRLAB)[address] [place] [address] MCH (RBC) [Entitic mass] 29.1 pg Normal 26.0-34.0 [facility] Comment on above: Performed By: #### L [id number] ####Estimator And Drafter Supervisor: ANAHY AVILA ([phone])[facility] [place] (SWRLAB)[address] [place] [address] MCHC 31.9 % Normal 30.5-36.0 [facility] Comment on above: Performed By: #### L [id number] ####Estimator And Drafter Supervisor: ANAHY AVILA ([phone])[facility] [place] (SWRLAB)[address] [place] [address] [place] MCV (RBC) [Entitic vol] 91.1 fL Normal 77.0-99.0 [facility] Comment on above: Performed By: #### L [id number] ####Estimator And Drafter Supervisor: ANAHY AVILA ([phone])[facility] [place] (SWRL[place])[address] [place] [address] [place] Monocytes (Bld) [#/Vol] 1.5 10*3/uL High 0.0-0.9 [facility] Comment on above: Performed By: #### L [id number] ####Estimator And Drafter Supervisor: ANAHY AVILA ([phone])LYNETTE MONTOYA RITTMAN (SWRLAB)[address] [place] [address] [place] Monocytes/100 WBC (Bld) 9.1 % Normal 5.0-13.0 [facility] Comment on above: Performed By: #### L [id number] ####Estimator And Drafter Supervisor: ANAHY AVILA ([phone])LYNETTE MONTOYA RITTMAN (SWRLAB)[address] [place] [address] NEUTROPHILS ABSOLUTE 11.5 10*3/uL High 1.8-7.5 [facility] Comment on above: Performed By: #### L [id number] ####Estimator And Drafter Supervisor: ANAHY AVILA ([phone])[facility]ITAL[facility] [place]TO[place] (SWRLAB)[address] [place] [address] Neutrophils/100 WBC (Bld) 69.8 % Normal 38.0-82.0 [facility] Comment on above: Performed By: #### L [id number] ####Estimator And Drafter Supervisor: ANAHY AVILA ([phone])[facility]ITAL[facility] [place]TO[place] (SWRLAB)[address] [place] [address] NRBC 0.0 /100 WBCs Normal 0.0-2.0 [facility] Comment on above: Performed By: #### L [id number] ####Estimator And Drafter Supervisor: ANAHY AVILA ([phone])[facility]ITAL[facility] [place]TO[place] (SWRLAB)[address] [place] [address] Platelet mean volume (Bld) [Entitic vol] 8.7 fL Low 9.0-12.7 [facility] Comment on above: Result Comment: MPV is a calculated measurement using platelet volume ratio Performed By: #### L [id number] ####Estimator And Drafter Supervisor: ANAHY AVILA ([phone])[facility] [place]TO[place] (SWRLAB)[address] [place] [address] Platelets (Bld) [#/Vol] 517 10*3/uL High 140-440 [facility] Comment on above: Performed By: #### L [id number] ####Estimator And Drafter Supervisor: ANAHY AVILA ([phone])[facility] [place]TO[place] (SWRLAB)[address] [place] [address] RBC (Bld) [#/Vol] 2.82 10*6/uL Low 4.40-5.90 [facility] Comment on above: Performed By: #### L [id number] ####Estimator And Drafter Supervisor: ANAHY AVILA ([phone])[facility] RITTMAN (SWRLAB)[address] WBC (Bld) [#/Vol] 16.5 10*3/uL High 3.6-10.7 [facility] Comment on above: Performed By: #### L [id number] ####Estimator And Drafter Supervisor: ANAHY AVILA ([phone])[facility]ITAL[facility] [place] RITTMAN (SWRLAB)[address] Progress Noteon 06-17-2025 Progress Note [facility] Progress Note Normal [facility] Progress Noteon 06-02-2025 Progress Note [facility] Progress Noteon 05-19-2025 Progress Note [facility] Progress Noteon 05-11-2025 Progress Note [facility] Progress Noteon 05-06-2025 Progress Note [facility] Progress Noteon 05-04-2025 Progress Note [facility] Progress Noteon 05-03-2025 Progress Note Normal [facility] Progress Note [...] Normal [facility] Progress Note Normal [facility] Progress Note [...] Normal [facility] Progress Note Normal [facility] Progress Noteon 04-27-2025 Progress Note Normal [facility] Progress Noteon 04-20-[address] [facility] Progress Noteon 04-19-2025 Progress Note Normal [facility] [id number] 04-18-2025 [id number] Normal [facility] [id number] 04-17-2025 [id number] Normal [facility] [id number] Shelter/SNF - [facility] Member [address] [place] [address] [phone] [id number] Patient/Family Choice Normal [facility] [id number] Normal [facility] CBC W Auto Differential pane l (Bld)on 04-17-2025 Erythrocyte distribution width (RBC) [Ratio] 25.7 % High 11.5 - 15.0 % [facility] Hematocrit (Bld) [Volume fraction] 27.9 % Low 40.0 - 52.0 % [facility] Hemoglobin (Bld) [Mass/Vol] 7.9 g/dL Low 13.0 - 18.0 g/dL [facility] MCH (RBC) [Entitic mass] 23.8 pg Low 26. 0 - 34.0 pg [facility] MCHC (RBC) [Mass/Vol] 28.3 % Low 30.5 - 36.0 % [facility] MCV (RBC) [Entitic vol] 84 fL 77.0 - 99.0 fL [facility] Platelet mean volume (Bld) [Entitic vol] 9 fL 9.0 - 12.7 fL [facility] Platelets (Bld) [#/Vol] 419 10*3/uL 140 - 440 10*3/uL [facility] RBC (Bld) [#/Vol] 3.32 10*6/uL Low 4.40 - 5.9 0 10*6/uL [facility] WBC (Bld) [#/Vol] 12 10*3/uL High 3.6 - 10.7 10*3/uL [facility] CBC WITH AUTO DIFFERENTIALon 04-17-2025 Erythrocyte distribution width (RBC) [Ratio] 25.7 % High 11.5-15.0 [facility] Comment on above: Performed By: #### L [id number], [id number] ####Estimator And Drafter Supervisor: UNA ARCE ([phone])[facility] (SBHLAB)[address] Hematocrit (Bld) [Volume fraction] 27.9 % Low 40.0-52.0 [facility] Comment on above: Performed By: #### L [id number], [id number] ####Estimator And Drafter Supervisor: UNA ARCE ([phone])[facility] (SBHLAB)[address] [place] [address] Hemoglobin (Bld) [Mass/Vol] 7.9 g/dL Low 13.0-18.0 [facility] Comment on above: Performed By: #### Gilbert [id number], [id number] ####Estimator And Drafter Supervisor: UNA ARCE ([phone])[facility] (SBHLAB)[address] [place] [address] MCH (RBC) [Entitic mass] 23.8 pg Low 26.0-34.0 [facility] Comment on above: Performed By: #### L [id number], [id number] ####Estimator And Drafter Supervisor: UNA ARCE ([phone])[facility] (SBHLAB)[address] MCHC 28.3 % Low 30.5-36.0 [facility] Comment on above: Performed By: #### L [id number], [id number] ####Estimator And Drafter Supervisor: UNA ARCE ([phone])[facility] (SBHLAB)[address] MCV (RBC) [Entitic vol] 84.0 fL Normal 77.0-99.0 [facility] Comment on above: Performed By: #### L [id number], [id number] ####Estimator And Drafter Supervisor: UNA ARCE ([phone])LYNETTE ESCOTO (SBHLAB)[address] Platelet mean volume (Bld) [Entitic vol] 9.0 fL Normal 9.0-12.7 [facility] Comment on above: Performed By: #### L [id number], [id number] ####Estimator And Drafter Supervisor: UNA ARCE ([phone])[facility]ITALAngel [facility] (SBHLAB)[address] Platelets (Bld) [#/Vol] 419 10*3/uL Normal 140-440 [facility] Comment on above: Performed By: #### L [id number], [id number] ####Estimator And Drafter Supervisor: UNA ARCE ([phone])[facility]ITALAngel [facility] (SBHLAB)[address] [place] [address] RBC (Bld) [#/Vol] 3.32 10*6/uL Low 4.40-5.90 [facility] Comment on above: Performed By: #### L [id number], [id number] ####Estimator And Drafter Supervisor: UNA ARCE ([phone])[facility]ITALAngel [place] (SBHLAB)[address] [place] [address] WBC (Bld) [#/Vol] 12.0 10*3/uL High 3.6-10.7 [facility] Comment on above: Performed By: #### L [id number], [id number] ####Estimator And Drafter Supervisor: UNA ARCE ([phone])[facility]ITALAngel [facility] (SBHLAB)[address] COMPREHENSIVE METABOLIC PANE Anant 04-17-2025 Albumin [Mass/Vol] 2.1 g/dL Low 3.4-4.8 [facility] Comment on above: Performed By: #### L AB103, LAB17 ####Estimator And Drafter Supervisor: UNA ARCE ([phone])[facility] (SBHLAB)[address] ALP [Catalytic activity/Vol] 49 U/L Normal 40-150 [facility] Comment on above: Performed By: #### L AB103, LAB17 ####Estimator And Drafter Supervisor: UNA ARCE ([phone])[facility] [place] (SBHLAB)[address] [place] [address] [place] ALT [Catalytic activity/Vol] U/L Normal <40 [facility] Comment on above: Performed By: #### L AB103, LAB17 ####Estimator And Drafter Supervisor: UNA ARCE ([phone])[facility] [place] (SBHLAB)[address] Anion gap [Moles/Vol] 10 mmol/L Normal 3-13 [facility] Comment on above: Performed By: #### L AB103, LAB17 ####Estimator And Drafter Supervisor: UNA ARCE ([phone])[facility] [place] (SBHLAB)[address] AST [Catalytic activity/Vol] 22 U/L Normal <34 [facility] Comment on above: Performed By: #### L AB103, LAB17 ####Estimator And Drafter Supervisor: UNA ARCE ([phone])[facility] [place] (SBHLAB)[address] [place] [address] [place] Bilirubin [Mass/Vol] 0.5 mg/dL Normal <1.2 [facility] Comment on above: Performed By: #### L AB103, LAB17 ####Estimator And Drafter Supervisor: UNA ARCE ([phone])[facility] [place] (SBHLAB)[address] [place] [address] [place] Calcium [Mass/Vol] 8.4 mg/dL Low 8.8-10.0 [facility] Comment on above: Performed By: #### L AB103, LAB17 ####Estimator And Drafter Supervisor: UNA ARCE ([phone])LYNETTE BASHIRN (SBHLAB)[address] Chloride [Moles/Vol] 88 mmol/L Low 98-107 [facility] Comment on above: Performed By: #### L AB103, LAB17 ####Estimator And Drafter Supervisor: UNA ACRE ([phone])[facility]ITAL[facility] (SBHLAB)[address] CO2 [Moles/Vol] 40 mmol/L High 23-31 [facility] Comment on above: Performed By: #### L AB103, LAB17 ####Estimator And Drafter Supervisor: UNA ARCE ([phone])[facility] (HLAB)[address] Creatinine [Mass/Vol] 1.67 mg/dL High 0.72-1.25 [facility] Comment on above: Performed By: #### L DERICK, LAB17 ####Estimator And Drafter Supervisor: UNA ARCE ([phone])[facility] (HLAB)[address] GLOMERULAR FILTRATION RATE ML/MIN/1.73 SQ M.PREDICTED 38.9 mL/min/1.73m*2 Low >60.0 [facility] Comment on above: Result Comment: Calc ulation based on the Chronic Kidney Disease Epidemiology Collaboration (CKD-EPI) equation refit without adjustment for race Performed By: #### L 103, LAB17 ####Estimator And Drafter Supervisor: UNA ARCE ([phone])[facility] (SBHLAB)[address] [place] [address] [place] Glucose [Mass/Vol] 94 mg/dL Normal 82-115 [facility] Comment on above: Performed By: #### L AB103, LAB17 ####Estimator And Drafter Supervisor: UNA ARCE ([phone])[facility] (HLAB)[address] Potassium [Moles/Vol] 3.6 mmol/L Normal 3.5-5.1 [facility] Comment on above: Result Comment: Plas ma potassium values may be up to 0.5 mmol/L lower than serum values. Performed By: #### L AB103, LAB17 ####Estimator And Drafter Supervisor: UNA ARCE ([phone])[facility] [place] (SBHLAB)[address] Protein [Mass/Vol] 5.8 g/dL Low 6.4-8.3 [facility] Comment on above: Performed By: #### L AB103, LAB17 ####Estimator And Drafter Supervisor: UNA ARCE ([phone])[facility] [place] (SBHLAB)[address] Sodium [Moles/Vol] 138 mmol/L Normal 136-145 [facility] Comment on above: Performed By: #### L AB103, LAB17 ####Estimator And Drafter Supervisor: UNA ARCE ([phone])[facility] (SBHLAB)[address] Urea nitrogen [Mass/Vol] 46 mg/dL High 9-23 [facility] Comment on above: Performed By: #### L AB103, LAB17 ####Estimator And Drafter Supervisor: UNA ARCE ([phone])[facility] (SBHLAB)[address] Comprehensive metabolic 1998 panelon 04-17-2025 Albumin [Mass/Vol] 2.1 g/dL Low 3.4 - 4.8 g/dL [facility] ALP [Catalytic activity/Vol] 49 U/L 40 - 150 U/L [facility] ALT [Catalytic activity/Vol] U/L NINF - 40 U/L [facility] Anion gap [Moles/Vol] 10 mmol/L 3 - 13 mmol/L [facility] AST [Catalytic activity/Vol] 22 U/L NINF - 34 U/L [facility] Bilirubin [Mass/Vol] 0.5 mg/dL NINF - 1.2 mg/dL [facility] Calcium [Mass/Vol] 8.4 mg/dL Low 8.8 - 10. 0 mg/dL [facility] Chloride [Moles/Vol] 88 mmol/L Low 98 - 10 7 mmol/L [facility] CO2 [Moles/Vol] 40 mmol/L High 23 - 31 mmol/L [facility] Creatinine [Mass/Vol] 1.67 mg/dL High 0.72 - 1.25 mg/dL [facility] GFR/1.73 sq M.predicted (S/P/Bld) [Vol rate/Area] 38.9 mL/min Low - PINF [facility] Glucose [Mass/Vol] 94 mg/dL 82 - 115 mg/dL [facility] Interpretation and review of laboratory results Abnormal [facility] Potassium [Moles/Vol] 3.6 mmol/L 3.5 - 5.1 mmol/L [facility] Protein [Mass/Vol] 5.8 g/dL Low 6.4 - 8.3 g/dL [facility] Sodium [Moles/Vol] 138 mmol/L 136 - 145 mmol/L [facility] Urea nitrogen [Mass/Vol] 46 mg/dL High 9 - 23 mg/d L [facility] Laboratory - Chemistry and C hemistry - challengeon 04-17-2025 Magnesium [Mass/Vol] 1.8 mg/dL 1.6 - 2 .6 mg/dL [facility] - Hematology and Cell countson 04-17-2025 Anisocytosis Ql (Bld) Slight Abnormal (none) [facility] Basophils (Bld) [#/Vol] 0.4 10*3/uL High 0.0 - 0.2 10*3/uL [facility] Basophils/100 WBC (Bld) 3 % High 0 - 2 % [facility] Eosinophils (Bld) [#/Vol] 0.2 10*3/uL 0.0 - 0.5 10*3/uL [facility] Eosinophils/100 WBC (Bld) 2 % 0 - 6 % [facility] Hypochromia Ql (Bld) Moderate Abnormal (none) [facility] Lymphocytes (Bld) [#/Vol] 1.3 10*3/uL 1.0 - 4.3 10*3/uL [facility] Lymphocytes/100 WBC (Bld) 11 % Low 15 - 45 % [facility] Monocytes (Bld) [#/Vol] 0.8 10*3/uL 0.0 - 0.9 10*3/uL [facility] Monocytes/100 WBC (Bld) 7 % 5 - 13 % [facility] Neutrophils (Bld) [#/Vol] 9.2 10*3/uL High 1.8 - 7.5 10*3/uL [facility] Poikilocytosis LM Ql (Bld) Moderate Abnormal (none) [facility] Polychromasia LM Ql (Bld) Slight Abnormal (none) [facility] RBC morphology finding Nom (Bld) abnormal [facility] Segmented neutrophils/100 WBC (Bld) 77 % 38 - 82 % [facility] Stomatocytes LM Ql (Bld) Moderate Abnormal (none) [facility] Target cells LM Ql (Bld) Slight Abnormal (none) [facility] MAGNESIUMon 04-17-2025 Magnesium [Mass/Vol] 1.8 mg/dL Normal 1.6-2.6 [facility] Comment on above: Result Comment: YARELI [place] COMMENTS:Higher values can be expected in females during menses. Performed By: #### L AB103, LAB17 ####Estimator And Drafter Supervisor: UNA ARCE ([phone])[facility]ITALAngel [facility] (SBHLAB)[address] MANUAL DIFFERENTIAL (CELLAVI BANDAR)on 04-17-2025 ANISOCYTOSIS PRESENCE IN BLOOD BY LIGHT MICROSCOPY Slight Abnormal (none) [facility] Comment on above: Performed By: #### Gilbert [id number], [id number] ####Estimator And Drafter Supervisor: UNA ARCE ([phone])[facility]ITALAngel [facility] (SBHLAB)[address] [place] [address] BAND NEUTROPHILS TOTAL PER COUNTED LEUKOCYTES BY MANUAL COUNT Normal [facility] Comment on above: Performed By: #### L [id number], [id number] ####Estimator And Drafter Supervisor: UNA ARCE ([phone])[facility] (SBHLAB)[address] BASOPHILS (10*3/UL) IN BLOOD-CELLAVISION 0.4 10*3/uL High 0.0-0.2 [facility] Comment on above: Performed By: #### L [id number], [id number] ####Estimator And Drafter Supervisor: UNA ARCE ([phone])[facility] (SBHLAB)[address] [place] [address] [place] BASOPHILS TOTAL PER COUNTED LEUKOCYTES BY MANUAL COUNT 3 Normal [facility] Comment on above: Performed By: #### L [id number], [id number] ####Estimator And Drafter Supervisor: UNA STAUFFERMELANIE ([phone])[facility] (SBHLAB)[address] [place] [address] [place] BASOPHILS/100 LEUKOCYTES IN BLOOD-CELLAVISION 3 % High 0-2 [facility] Comment on above: Performed By: #### L [id number], [id number] ####Estimator And Drafter Supervisor: UNA ARCE ([phone])[facility] [place] (SBHLAB)[address] [place] [address] [place] BLASTS TOTAL PER COUNTED LEUKOCYTES BY MANUAL COUNT Normal [facility] Comment on above: Performed By: #### L [id number], [id number] ####Estimator And Drafter Supervisor: UNA ARCE ([phone])[facility] [place] (SBHLAB)[address] [place] [address] [place] EOSINOPHILS (10*3/UL) IN BLOOD-CELLAVISION 0.2 10*3/uL Normal 0.0-0.5 [facility] Comment on above: Performed By: #### L [id number], [id number] ####Estimator And Drafter Supervisor: UNA ARCE ([phone])[facility] [place] (SBHLAB)[address] [place] [address] [place] EOSINOPHILS TOTAL PER COUNTED LEUKOCYTES BY MANUAL COUNT 2 High 0-1 [facility] Comment on above: Performed By: #### L [id number], [id number] ####Estimator And Drafter Supervisor: UNA ARCE ([phone])[facility] [place] (SBHLAB)[address] [place] [address] [place] EOSINOPHILS/100 LEUKOCYTES IN BLOOD-CELLAVISION 2 % Normal 0-6 [facility] Comment on above: Performed By: #### L [id number], [id number] ####Estimator And Drafter Supervisor: UNA ARCE ([phone])[facility] [place] (SBHLAB)[address] HYPOCHROMIA (PRESENCE) IN BLOOD BY LIGHT MICROSCOPY Moderate Abnormal (none) [facility] Comment on above: Performed By: #### L PA2939, [id number] ####Estimator And Drafter Supervisor: UNA ARCE ([phone])[facility] [place] (SBHLAB)[address] [place] [address] [place] LYMPHOCYTES (10*3/UL) IN BLOOD-CELLAVISION 1.3 10*3/uL Normal 1.0-4.3 [facility] Comment on above: Performed By: #### L [id number], [id number] ####Estimator And Drafter Supervisor: UNA ARCE ([phone])[facility] [place] (SBHLAB)[address] LYMPHOCYTES TOTAL PER COUNTED LEUKOCYTES BY MANUAL COUNT 11 Normal [facility] Comment on above: Performed By: #### L [id number], [id number] ####Estimator And Drafter Supervisor: UNA ARCE ([phone])[facility] (SBHLAB)[address] [place] [address] [place] LYMPHOCYTES/100 LEUKOCYTES IN BLOOD-CELLAVISION 11 % Low 15-45 [facility] Comment on above: Performed By: #### L [id number], [id number] ####Estimator And Drafter Supervisor: UNA ARCE ([phone])[facility] (SBHLAB)[address] [place] [address] [place] METAMYELOCYTES TOTAL PER COUNTED LEUKOCYTES BY MANUAL COUNT Normal [facility] Comment on above: Performed By: #### L [id number], [id number] ####Estimator And Drafter Supervisor: UNA ARCE ([phone])[facility] [place] (SBHLAB)[address] [place] [address] [place] MONOCYTES (10*3/UL) IN BLOOD-CELLAVISION 0.8 10*3/uL Normal 0.0-0.9 [facility] Comment on above: Performed By: #### L [id number], [id number] ####Estimator And Drafter Supervisor: UNA ARCE ([phone])[facility] (SBHLAB)[address] [place] [address] [place] MONOCYTES TOTAL PER COUNTED LEUKOCYTES BY MANUAL COUNT 7 Normal [facility] Comment on above: Performed By: #### L [id number], [id number] ####Estimator And Drafter Supervisor: UNA ARCE ([phone])[facility] (SBHLAB)[address] [place] [address] [place] MONOCYTES/100 LEUKOCYTES IN BLOOD-LUCIANA 7 % Normal -13 [facility] Comment on above: Performed By: #### L [id number], [id number] ####Estimator And Drafter Supervisor: UNA ARCE ([phone])[facility] [place] (SBHLAB)[address] [place] [address] [place] MYELOCYTES COUNTED BY MANUAL COUNT Normal [facility] Comment on above: Performed By: #### L [id number], [id number] ####Estimator And Drafter Supervisor: UNA ARCE ([phone])[facility] (SBHLAB)[address] [place] [address] [place] NEUTROPHILS TOTAL PER COUNTED LEUKOCYTES BY MANUAL COUNT 77 Normal [facility] Comment on above: Performed By: #### L [id number], [id number] ####Estimator And Drafter Supervisor: UNA ARCE ([phone])[facility] (SBHLAB)[address] [place] [address] [place] POIKILOCYTOSIS (PRESENCE) IN BLOOD BY LIGHT MICROSCOPY Moderate Abnormal (none) [facility] Comment on above: Performed By: #### L [id number], [id number] ####Estimator And Drafter Supervisor: UNA ARCE ([phone])[facility] (SBHLAB)[address] [place] [address] [place] POLYCHROMASIA IN BLOOD BY LIGHT MICROSCOPY Slight Abnormal (none) [facility] Comment on above: Performed By: #### L [id number], [id number] ####Estimator And Drafter Supervisor: UNA ARCE ([phone])[facility] (SBHLAB)[address] [place] [address] [place] PROMYELOCYTES TOTAL PER COUNTED LEUKOCYTES BY MANUAL COUNT Normal [facility] Comment on above: Performed By: #### L [id number], [id number] ####Estimator And Drafter Supervisor: UNA ARCE ([phone])[facility] (SBHLAB)[address] RBC MORPHOLOGY IN BLOOD abnormal Normal [facility] Comment on above: Performed By: #### L [id number], [id number] ####Estimator And Drafter Supervisor: UNA ARCE ([phone])[facility] [place] (SBHLAB)[address] SEGMENTED NEUTROPHILS (10*3/UL) IN BLOOD-CELLAVISION 9.2 10*3/uL High 1.8-7.5 [facility] Comment on above: Performed By: #### L [id number], [id number] ####Estimator And Drafter Supervisor: UNA ARCE ([phone])[facility] [place] (SBHLAB)[address] [place] [address] [place] SEGMENTED NEUTROPHILS/100 LEUKOCYTES-CE 77 % Normal 38-82 [facility] Comment on above: Performed By: #### L [id number], [id number] ####Estimator And Drafter Supervisor: UNA ARCE ([phone])[facility] [place] (SBHLAB)[address] [place] [address] [place] STOMATOCYTES IN BLOOD BY LIGHT MICROSCOPY Moderate Abnormal (none) [facility] Comment on above: Performed By: #### L [id number], [id number] ####Estimator And Drafter Supervisor: UNA ARCE ([phone])[facility] [place] (SBHLAB)[address] [place] [address] [place] TARGET CELLS IN BLOOD BY LIGHT MICROSCOPY Slight Abnormal (none) [facility] Comment on above: Performed By: #### L [id number], [id number] ####Estimator And Drafter Supervisor: UNA ARCE ([phone])[facility] [place] (SBHLAB)[address] [place] [address] [place] UNCLASSIFIED CELLS TOTAL PER COUNTED LEUKOCYTES BY MANUAL COUNT Normal [facility] Comment on above: Performed By: #### L [id number], [id number] ####Estimator And Drafter Supervisor: UNA ARCE ([phone])[facility] (SBHLAB)[address] VARIANT LYMPHOCYTES TOTAL PER COUNTED LEUKOCYTES BY MANUAL COUNT Normal [facility] Comment on above: Performed By: #### L [id number], [id number] ####Estimator And Drafter Supervisor: UNA ARCE ([phone])[facility] (SBHLAB)[address] Magnesium [Mass/Vol]on 04-17 Interpretation and review of laboratory results Normal [facility] No Panel Informationon 04-17 [facility] Basophils Manual [address] [facility] E[facility] Manual 2 High 0 - 1 [facility] Interpretation and review of laboratory results Abnormal [facility] Lymphocytes Manual 11 [facility] Monocytes Manual [address] [facility] Neutrophils Manual 77 [facility] Nursing Noteon 04-17-2025 Nursing Note Report given to Flor MYERS at [facility]. All belongings sent with patient, including eyewear. HL removed, site WNL. Normal [facility] Progress Noteon 04-17-[address] [facility] Progress Note Normal [facility] [id number] 04-16-2025 [id number] Tasked weekend TTC t o follow for possible dc over the weekend. assessment manager to follow and assist as needed. Normal [facility] [id number] Complete in HEN S for [facility] per TCC request [facility] [phone] Normal [facility] CBC W Auto Differential pane l (Bld)Ordered By: Dayan Hernandez on 04-16-2025 Erythrocyte distribution width (RBC) [Ratio] 25.7 % High 11.5 - 15.0 % [facility] Hematocrit (Bld) [Volume fraction] 28.4 % Low 40.0 - 52.0 % [facility] Hemoglobin (Bld) [Mass/Vol] 8 g/dL Low 13.0 - 18.0 g/dL [facility] Interpretation and review of laboratory results Abnormal [facility] MCH (RBC) [Entitic mass] 23.7 pg Low 26. 0 - 34.0 pg [facility] MCHC (RBC) [Mass/Vol] 28.2 % Low 30.5 - 36.0 % [facility] MCV (RBC) [Entitic vol] 84.3 fL 77.0 - 99.0 fL [facility] Platelet mean volume (Bld) [Entitic vol] 9.1 fL 9.0 - 12.7 fL [facility] Platelets (Bld) [#/Vol] 405 10*3/uL 140 - 440 10*3/uL [facility] RBC (Bld) [#/Vol] 3.37 10*6/uL Low 4.40 - 5.9 0 10*6/uL [facility] WBC (Bld) [#/Vol] 13.1 10*3/uL High 3.6 - 10.7 10*3/uL [facility] CBC WITH AUTO DIFFERENTIALon 04-16-2025 Erythrocyte distribution width (RBC) [Ratio] 25.7 % High 11.5-15.0 [facility] Comment on above: Performed By: #### L [id number], [id number] ####Estimator And Drafter Supervisor: UNA [phone])[facility] ([facility])[address] [place] [address] Hematocrit (Bld) [Volume fraction] 28.4 % Low 40.0-52.0 [facility] Comment on above: Performed By: #### L [id number], [id number] ####Estimator And Drafter Supervisor: UNA ARCE ([phone])[facility] ([facility])[address] [place] [address] Hemoglobin (Bld) [Mass/Vol] 8.0 g/dL Low 13.0-18.0 [facility] Comment on above: Performed By: #### L [id number], [id number] ####Estimator And Drafter Supervisor: UNA ARCE ([phone])[facility] [place] ([facility])[address] MCH (RBC) [Entitic mass] 23.7 pg Low 26.0-34.0 [facility] Comment on above: Performed By: #### L [id number], [id number] ####Estimator And Drafter Supervisor: UNA ARCE ([phone])[facility]ZF[facility] ([facility])[address] MCHC 28.2 % Low 30.5-36.0 [facility] Comment on above: Performed By: #### L [id number], [id number] ####Estimator And Drafter Supervisor: UNA STAUFFERMELANIE ([phone])[facility] ([facility])[address] [place] [address] MCV (RBC) [Entitic vol] 84.3 fL Normal 77.0-99.0 [facility] Comment on above: Performed By: #### L [id number], [id number] ####Estimator And Drafter Supervisor: UNA ARCE ([phone])[facility] ([facility])[address] Platelet mean volume (Bld) [Entitic vol] 9.1 fL Normal 9.0-12.7 [facility] Comment on above: Performed By: #### L [id number], [id number] ####Estimator And Drafter Supervisor: UNA ARCE ([phone])[facility] ([facility])[address] Platelets (Bld) [#/Vol] 405 10*3/uL Normal 140-440 [facility] Comment on above: Performed By: #### L [id number], [id number] ####Estimator And Drafter Supervisor: UNA STAUFFERMELANIE ([phone])[facility] ([facility])[address] RBC (Bld) [#/Vol] 3.37 10*6/uL Low 4.40-5.90 [facility] Comment on above: Performed By: #### L [id number], [id number] ####Estimator And Drafter Supervisor: UNA ARCE ([phone])[facility] [place] ([facility])[address] WBC (Bld) [#/Vol] 13.1 10*3/uL High 3.6-10.7 [facility] Comment on above: Performed By: #### L [id number], [id number] ####Estimator And Drafter Supervisor: UNA ARCE ([phone])[facility]URAFOUR [facility]ERN ([facility])[address] COMPREHENSIVE METABOLIC PANE Anant 04-16-2025 Albumin [Mass/Vol] 2.2 g/dL Low 3.4-4.8 [facility] Comment on above: Performed By: #### L AB103, LAB17 ####Estimator And Drafter Supervisor: UNA ARCE ([phone])[facility] [place] ([facility])[address] ALP [Catalytic activity/Vol] 55 U/L Normal 40-150 [facility] Comment on above: Performed By: #### L AB103, LAB17 ####Estimator And Drafter Supervisor: UNA ARCE ([phone])[facility] [place] ([facility])[address] ALT [Catalytic activity/Vol] 6 U/L Normal <40 [facility] Comment on above: Performed By: #### L AB103, LAB17 ####Estimator And Drafter Supervisor: UNA ARCE ([phone])[facility] [place] ([facility])[address] Anion gap [Moles/Vol] 10 mmol/L Normal 3-13 [facility] Comment on above: Performed By: #### L AB103, LAB17 ####Estimator And Drafter Supervisor: UNA ARCE ([phone])[facility]A [facility]BFOUR [facility] ([facility])[address] [place] [address] [place] AST [Catalytic activity/Vol] 23 U/L Normal <34 [facility] Comment on above: Performed By: #### L AB103, LAB17 ####Estimator And Drafter Supervisor: UNA ARCE ([phone])[facility] [place] ([facility])[address] Bilirubin [Mass/Vol] 0.5 mg/dL Normal <1.2 [facility] Comment on above: Performed By: #### L AB103, LAB17 ####Estimator And Drafter Supervisor: UNA ARCE ([phone])[facility] [place] ([facility])[address] Calcium [Mass/Vol] 8.2 mg/dL Low 8.8-10.0 [facility] Comment on above: Performed By: #### L AB103, LAB17 ####Estimator And Drafter Supervisor: UNA ARCE ([phone])[facility] [place] ([facility])[address] [place] [address] [place] Chloride [Moles/Vol] 87 mmol/L Low 98-107 [facility] Comment on above: Performed By: #### L AB103, LAB17 ####Estimator And Drafter Supervisor: UNA ARCE ([phone])[facility] [place] ([facility])[address] [place] [address] [place] CO2 [Moles/Vol] 43 mmol/L High 23-31 [facility] Comment on above: Performed By: #### L AB103, LAB17 ####Estimator And Drafter Supervisor: UNA ARCE ([phone])[facility] [place] ([facility])[address] [place] [address] [place] Creatinine [Mass/Vol] 1.81 mg/dL High 0.72-1.25 [facility] Comment on above: Performed By: #### L AB103, LAB17 ####Estimator And Drafter Supervisor: UNA ARCE ([phone])[facility] [place] ([facility])[address] [place] [address] [place] GLOMERULAR FILTRATION RATE ML/MIN/1.73 SQ M.PREDICTED 35.3 mL/min/1.73m*2 Low >60.0 [facility] Comment on above: Result Comment: Calc ulation based on the Chronic Kidney Disease Epidemiology Collaboration (CKD-EPI) equation refit without adjustment for race Performed By: #### L AB103, LAB17 ####Estimator And Drafter Supervisor: UNA ARCE ([phone])[facility] ([facility])[address] Glucose [Mass/Vol] 114 mg/dL Normal 82-115 [facility] Comment on above: Performed By: #### L AB103, LAB17 ####Estimator And Drafter Supervisor: UNA ARCE ([phone])[facility] ([facility])[address] Potassium [Moles/Vol] 3.6 mmol/L Normal 3.5-5.1 [facility] Comment on above: Result Comment: [facility] potassium values may be up to 0.5 mmol/L lower than serum values. Performed By: #### L AB103, LAB17 ####Estimator And Drafter Supervisor: UNA ARCE ([phone])[facility] ([facility])[address] Protein [Mass/Vol] 6.0 g/dL Low 6.4-8.3 [facility] Comment on above: Performed By: #### L AB103, LAB17 ####Estimator And Drafter Supervisor: UNA ARCE ([phone])[facility] ([facility])[address] [place] [address] [place] Sodium [Moles/Vol] 140 mmol/L Normal 136-145 [facility] Comment on above: Performed By: #### L AB103, LAB17 ####Estimator And Drafter Supervisor: UNA ARCE ([phone])[facility] ([facility])[address] Urea nitrogen [Mass/Vol] 46 mg/dL High 9-23 [facility] Comment on above: Performed By: #### L AB103, LAB17 ####Estimator And Drafter Supervisor: UNA ARCE ([phone])[facility] (SB[facility])[address] [place] [address] Comprehensive metabolic 1998 panelon 04-16-2025 Albumin [Mass/Vol] 2.2 g/dL Low 3.4 - 4.8 g/dL [facility] ALP [Catalytic activity/Vol] 55 U/L 40 - 150 U/L [facility] ALT [Catalytic activity/Vol] 6 U/L NINF - 40 U/L [facility] Anion gap [Moles/Vol] 10 mmol/L 3 - 13 mmol/L [facility] AST [Catalytic activity/Vol] 23 U/L NINF - 34 U/L [facility] Bilirubin [Mass/Vol] 0.5 mg/dL NINF - 1.2 mg/dL [facility] Calcium [Mass/Vol] 8.2 mg/dL Low 8.8 - 10. 0 mg/dL [facility] Chloride [Moles/Vol] 87 mmol/L Low 98 - 10 7 mmol/L [facility] CO2 [Moles/Vol] 43 mmol/L High 23 - 31 mmol/L [facility] Creatinine [Mass/Vol] 1.81 mg/dL High 0.72 - 1.25 mg/dL [facility] GFR/1.73 sq M.predicted (S/P/Bld) [Vol rate/Area] 35.3 mL/min Low - PINF [facility] Glucose [Mass/Vol] 114 mg/dL 82 - 115 mg/dL [facility] Interpretation and review of laboratory results Abnormal [facility] Potassium [Moles/Vol] 3.6 mmol/L 3.5 - 5.1 mmol/L [facility] Protein [Mass/Vol] 6 g/dL Low 6.4 - 8.3 g/dL [facility] Sodium [Moles/Vol] 140 mmol/L 136 - 145 mmol/L [facility] Urea nitrogen [Mass/Vol] 46 mg/dL High 9 - 23 mg/d L [facility] Laboratory - Chemistry and C hemistry - challengeon 04-16-2025 Magnesium [Mass/Vol] 1.8 mg/dL 1.6 - 2 .6 mg/dL [facility] Laboratory - Hematology and Cell countson 04-16-2025 Anisocytosis Ql (Bld) Moderate Abnormal (none) [facility] Basophils (Bld) [#/Vol] 0.1 10*3/uL 0.0 - 0.2 10*3/uL [facility] Basophils/100 WBC (Bld) 1 % 0 - 2 % [facility] [place] cells LM Ql (Bld) Slight Abnormal (none) [facility] Eosinophils (Bld) [#/Vol] 0.5 10*3/uL 0.0 - 0.5 10*3/uL [facility] Eosinophils/100 WBC (Bld) 4 % 0 - 6 % [facility] Hypochromia Ql (Bld) Slight Abnormal (none) [facility] Lymphocytes (Bld) [#/Vol] 1.6 10*3/uL 1.0 - 4.3 10*3/uL [facility] Lymphocytes/100 WBC (Bld) 12 % Low 15 - 45 % [facility] Monocytes (Bld) [#/Vol] 0.9 10*3/uL 0.0 - 0.9 10*3/uL [facility] Monocytes/100 WBC (Bld) 7 % 5 - 13 % [facility] Neutrophils (Bld) [#/Vol] 9.8 10*3/uL High 1.8 - 7.5 10*3/uL [facility] Poikilocytosis LM Ql (Bld) Slight Abnormal (none) [facility] RBC morphology finding Nom (Bld) abnormal [facility] Segmented neutrophils/100 WBC (Bld) 75 % 38 - 82 % [facility] Variant lymphocytes (Bld) [#/Vol] 0.3 10*3/uL High NINF - 0.0 10*3/uL [facility] Variant lymphocytes/100 WBC (Bld) 2 % High NINF - 0 % [facility] MAGNESIUMon 04-16-2025 Magnesium [Mass/Vol] 1.8 mg/dL Normal 1.6-2.6 [facility] Comment on above: Result Comment: YARELI [place] COMMENTS:Higher values can be expected in females during menses. Performed By: #### L AB103, LAB17 ####Estimator And Drafter Supervisor: UNA ARCE ([phone])[facility] ([facility])[address] [place] [address] MANUAL DIFFERENTIAL (CELLAVI BANDAR)on 04-16-2025 ANISOCYTOSIS PRESENCE IN BLOOD BY LIGHT MICROSCOPY Moderate Abnormal (none) [facility] Comment on above: Performed By: #### L [id number], [id number] ####Estimator And Drafter Supervisor: UNA ARCE ([phone])[facility] [place] ([facility])[address] [place] [address] [place] BAND NEUTROPHILS TOTAL PER COUNTED LEUKOCYTES BY MANUAL COUNT Normal [facility] Comment on above: Performed By: #### L [id number], [id number] ####Estimator And Drafter Supervisor: UNA STAUFFERMELANIE ([phone])[facility] [place] ([facility])[address] [place] [address] [place] BASOPHILS (10*3/UL) IN BLOOD-CELLAVISION 0.1 10*3/uL Normal 0.0-0.2 [facility] Comment on above: Performed By: #### L [id number], [id number] ####Estimator And Drafter Supervisor: UNA ARCE ([phone])[facility] [place] ([facility])[address] [place] [address] [place] BASOPHILS TOTAL PER COUNTED LEUKOCYTES BY MANUAL COUNT 1 Normal [facility] Comment on above: Performed By: #### L [id number], [id number] ####Estimator And Drafter Supervisor: UNA ARCE ([phone])[facility] [place] ([facility])[address] [place] [address] [place] BASOPHILS/100 LEUKOCYTES IN BLOOD-CELLAVISION 1 % Normal 0-2 [facility] Comment on above: Performed By: #### L [id number], [id number] ####Estimator And Drafter Supervisor: UNA ARCE ([phone])[facility] [place] ([facility])[address] [place] [address] [place] BLASTS TOTAL PER COUNTED LEUKOCYTES BY MANUAL COUNT Normal [facility] Comment on above: Performed By: #### L [id number], [id number] ####Estimator And Drafter Supervisor: UNA ARCE ([phone])[facility] [place] ([facility])[address] [place] [address] [place] MEENA CELLS PRESENCE IN BLOOD BY LIGHT MICROSCOPY Slight Abnormal (none) [facility] Comment on above: Performed By: #### L [id number], [id number] ####Estimator And Drafter Supervisor: UNA ARCE ([phone])[facility] [place] ([facility])[address] [place] [address] [place] EOSINOPHILS (10*3/UL) IN BLOOD-CELLAVISION 0.5 10*3/uL Normal 0.0-0.5 [facility] Comment on above: Performed By: #### L [id number], [id number] ####Estimator And Drafter Supervisor: UNA ARCE ([phone])[facility] [place] ([facility])[address] [place] [address] [place] EOSINOPHILS TOTAL PER COUNTED LEUKOCYTES BY MANUAL COUNT 4 High 0-1 [facility] Comment on above: Performed By: #### L [id number], [id number] ####Estimator And Drafter Supervisor: UNA ARCE ([phone])[facility] [place] ([facility])[address] [place] [address] [place] EOSINOPHILS/100 LEUKOCYTES IN BLOOD-CELLAVISION 4 % Normal 0-6 [facility] Comment on above: Performed By: #### L [id number], [id number] ####Estimator And Drafter Supervisor: UNA ARCE ([phone])[facility] [place] ([facility])[address] [place] [address] [place] HYPOCHROMIA (PRESENCE) IN BLOOD BY LIGHT MICROSCOPY Slight Abnormal (none) [facility] Comment on above: Performed By: #### L [id number], [id number] ####Estimator And Drafter Supervisor: UNA ARCE ([phone])[facility] [place] ([facility])[address] [place] [address] [place] LYMPHOCYTE VARIANT/100 LEUKOCYTES IN BLOOD- CELLAVISION 2 % High <=0 [facility] Comment on above: Performed By: #### L [id number], [id number] ####Estimator And Drafter Supervisor: UNA ARCE ([phone])[facility] [place] ([facility])[address] [place] [address] [place] LYMPHOCYTES (10*3/UL) IN BLOOD-CELLAVISION 1.6 10*3/uL Normal 1.0-4.3 [facility] Comment on above: Performed By: #### L [id number], [id number] ####Estimator And Drafter Supervisor: UNA ARCE ([phone])[facility] [place] ([facility])[address] LYMPHOCYTES TOTAL PER COUNTED LEUKOCYTES BY MANUAL COUNT 12 Normal [facility] Comment on above: Performed By: #### L [id number], [id number] ####Estimator And Drafter Supervisor: UNA MOHRCER ([phone])[facility] [place] ([facility])[address] [place] [address] [place] LYMPHOCYTES/100 LEUKOCYTES IN BLOOD-CELLAVISION 12 % Low 15-45 [facility] Comment on above: Performed By: #### L [id number], [id number] ####Estimator And Drafter Supervisor: UNA ARCE ([phone])[facility] [place] ([facility])[address] METAMYELOCYTES TOTAL PER COUNTED LEUKOCYTES BY MANUAL COUNT [facility] Comment on above: Performed By: #### L [id number], [id number] ####Estimator And Drafter Supervisor: UNA ARCE ([phone])[facility] [place] ([facility])[address] [place] [address] [place] MONOCYTES (10*3/UL) IN BLOOD-CELLAVISION 0.9 10*3/uL Normal 0.0-0.9 [facility] Comment on above: Performed By: #### L [id number], [id number] ####Estimator And Drafter Supervisor: UNA ARCE ([phone])[facility] [place] ([facility])[address] [place] [address] [place] MONOCYTES TOTAL PER COUNTED LEUKOCYTES BY MANUAL COUNT 7 Normal [facility] Comment on above: Performed By: #### L [id number], [id number] ####Estimator And Drafter Supervisor: UNA ARCE ([phone])[facility] [place] ([facility])[address] [place] [address] [place] MONOCYTES/100 LEUKOCYTES IN BLOOD-LUCIANA 7 % Normal 5-13 [facility] Comment on above: Performed By: #### L [id number], [id number] ####Estimator And Drafter Supervisor: UNA ARCE ([phone])[facility] [place] ([facility])[address] [place] [address] [place] MYELOCYTES COUNTED BY MANUAL COUNT Normal [facility] Comment on above: Performed By: #### L [id number], [id number] ####Estimator And Drafter Supervisor: UNA ARCE ([phone])[facility] [place] ([facility])[address] [place] [address] [place] NEUTROPHILS TOTAL PER COUNTED LEUKOCYTES BY MANUAL COUNT 77 Normal [facility] Comment on above: Performed By: #### L [id number], [id number] ####Estimator And Drafter Supervisor: UNA ARCE ([phone])[facility] [place] ([facility])[address] [place] [address] [place] POIKILOCYTOSIS (PRESENCE) IN BLOOD BY LIGHT MICROSCOPY Slight Abnormal (none) [facility] Comment on above: Performed By: #### L [id number], [id number] ####Estimator And Drafter Supervisor: UNA ARCE ([phone])[facility] [place] ([facility])[address] [place] [address] [place] PROMYELOCYTES TOTAL PER COUNTED LEUKOCYTES BY MANUAL COUNT Normal [facility] Comment on above: Performed By: #### L [id number], [id number] ####Estimator And Drafter Supervisor: UNA ARCE ([phone])[facility] [place] ([facility])[address] [place] [address] [place] RBC MORPHOLOGY IN BLOOD abnormal Normal [facility] Comment on above: Performed By: #### L [id number], [id number] ####Estimator And Drafter Supervisor: UNA ARCE ([phone])[facility] [place] ([facility])[address] [place] [address] [place] SEGMENTED NEUTROPHILS (10*3/UL) IN BLOOD-CELLAVISION 9.8 10*3/uL High 1.8-7.5 [facility] Comment on above: Performed By: #### L [id number], [id number] ####Estimator And Drafter Supervisor: UNA ARCE ([phone])[facility] [place] ([facility])[address] SEGMENTED NEUTROPHILS/100 LEUKOCYTES-CE 75 % Normal 38-82 [facility] Comment on above: Performed By: #### L [id number], [id number] ####Estimator And Drafter Supervisor: UNA ARCE ([phone])[facility] [place] ([facility])[address] UNCLASSIFIED CELLS TOTAL PER COUNTED LEUKOCYTES BY MANUAL COUNT Normal [facility] Comment on above: Performed By: #### L [id number], [id number] ####Estimator And Drafter Supervisor: UNA ARCE ([phone])[facility] ([facility])[address] VARIANT LYMPHOCYTES (10*3/UL) IN BLOOD-CELLAVISION 0.3 10*3/uL High <=0.0 [facility] Comment on above: Performed By: #### L [id number], [id number] ####Estimator And Drafter Supervisor: UNA ACRE ([phone])[facility] [place] ([facility])[address] VARIANT LYMPHOCYTES TOTAL PER COUNTED LEUKOCYTES BY MANUAL COUNT 2 Normal [facility] Comment on above: Performed By: #### L [id number], [id number] ####Estimator And Drafter Supervisor: UNA ARCE ([phone])[facility] [place] ([facility])[address] [place] [address] [place] Magnesium [Mass/Vol]on 04-16 Interpretation and review of laboratory results Normal [facility] No Panel Informationon 04-16 [facility] Atypical Lymphocytes Manual 2 [facility] Basophils Manual [address] [facility] Eosinophils Manual 4 High 0 - 1 [facility] Interpretation and review of laboratory results Abnormal [facility] Lymphocytes Manual 12 [facility] Monocytes Manual 7 [facility] alth Neutrophils Manual 77 [facility] Nursing Noteon 04-16-2025 Nursing Note Normal [facility] Progress Noteon 04-16-2025 Progress Note [facility] Progress Note [facility] Progress Note [facility] Note [facility] [id number] 04-15-2025 [id number] Normal [facility] Bacteria identified Anaer cx Nom (Unsp spec)on 04-15-2025 Interpretation and review of laboratory results Normal [facility] CBC W Auto Differential pane l (Bld)on 04-15-2025 Erythrocyte distribution width (RBC) [Ratio] 25.3 % High 11.5 - 15.0 % [facility] Hematocrit (Bld) [Volume fraction] 28 % Low 40.0 - 52.0 % [facility] Hemoglobin (Bld) [Mass/Vol] 7.8 g/dL Low 13.0 - 18.0 g/dL [facility] Interpretation and review of laboratory results Abnormal [facility] MCH (RBC) [Entitic mass] 23.4 pg Low 26. 0 - 34.0 pg [facility] MCHC (RBC) [Mass/Vol] 27.9 % Low 30.5 - 36.0 % [facility] MCV (RBC) [Entitic vol] 84.1 fL 77.0 - 99.0 fL [facility] Platelet mean volume (Bld) [Entitic vol] 9.1 fL 9.0 - 12.7 fL [facility] Platelets (Bld) [#/Vol] 332 10*3/uL 140 - 440 10*3/uL [facility] RBC (Bld) [#/Vol] 3.33 10*6/uL Low 4.40 - 5.9 0 10*6/uL [facility] WBC (Bld) [#/Vol] 12.4 10*3/uL High 3.6 - 10.7 10*3/uL [facility] CBC WITH AUTO DIFFERENTIALon 04-15-2025 Erythrocyte distribution width (RBC) [Ratio] 25.3 % High 11.5-15.0 [facility] Comment on above: Performed By: #### L [id number], [id number] ####Estimator And Drafter Supervisor: UNA STAUFFERMELANIE ([phone])[facility] [place] ([facility])[address] Hematocrit (Bld) [Volume fraction] 28.0 % Low 40.0-52.0 [facility] Comment on above: Performed By: #### L [id number], [id number] ####Estimator And Drafter Supervisor: UNA ARCE ([phone])[facility]ITALAngel [facility]BF[facility] ([facility])[address] Hemoglobin (Bld) [Mass/Vol] 7.8 g/dL Low 13.0-18.0 [facility] Comment on above: Performed By: #### L [id number], [id number] ####Estimator And Drafter Supervisor: UNA STAUFFERMELANIE ([phone])[facility]ITALAngel [facility] ([facility])[address] MCH (RBC) [Entitic mass] 23.4 pg Low 26.0-34.0 [facility] Comment on above: Performed By: #### L [id number], [id number] ####Estimator And Drafter Supervisor: UNA ARCE ([phone])[facility] HOSPITALAngel SANCHEZFOUR CORNERS REGION[facility] HEALTH CENTERN (SBHLAB)[address] MCHC 27.9 % Low 30.5-36.0 [facility] Comment on above: Performed By: #### L [id number] ####Estimator And Drafter Supervisor: UNA ARCE ([phone])[facility]OSPITALAngel SANCHEZFOUR CORNERS REGION[facility] HEALTH CENTERN (SBHLAB)[address] MCV (RBC) [Entitic vol] 84.1 fL Normal 77.0-99.0 [facility] Comment on above: Performed By: #### L [id number], [id number] ####Estimator And Drafter Supervisor: UNA ARCE ([phone])[facility] [place] (SBHLAB)[address] Platelet mean volume (Bld) [Entitic vol] 9.1 fL Normal 9.0-12.7 [facility] Comment on above: Performed By: #### L [id number], [id number] ####Estimator And Drafter Supervisor: UNA ARCE ([phone])[facility]A [facility] (SBHLAB)[address] Platelets (Bld) [#/Vol] 332 10*3/uL Normal 140-440 [facility] Comment on above: Performed By: #### L [id number], [id number] ####Estimator And Drafter Supervisor: UNA ARCE ([phone])[facility] [place] (SBHLAB)[address] RBC (Bld) [#/Vol] 3.33 10*6/uL Low 4.40-5.90 [facility] Comment on above: Performed By: #### L [id number], [id number] ####Estimator And Drafter Supervisor: UNA ARCE ([phone])[facility] (SBHLAB)[address] WBC (Bld) [#/Vol] 12.4 10*3/uL High 3.6-10.7 [facility] Comment on above: Performed By: #### L [id number], [id number] ####Estimator And Drafter Supervisor: UNA ARCE ([phone])[facility] (SBHLAB)[address] COMPREHENSIVE METABOLIC PANE Anant 04-15-2025 Albumin [Mass/Vol] 2.1 g/dL Low 3.4-4.8 [facility] Comment on above: Performed By: #### L [id number], [id number] ####Estimator And Drafter Supervisor: UNA ARCE ([phone])[facility] (SBHLAB)[address] ALP [Catalytic activity/Vol] 48 U/L Normal 40-150 [facility] Comment on above: Performed By: #### L AB17, [id number] ####Estimator And Drafter Supervisor: UNA [phone])[facility] [place] (SBHLAB)[address] ALT [Catalytic activity/Vol] U/L Normal <40 [facility] Comment on above: Performed By: #### L [id number], [id number] ####Estimator And Drafter Supervisor: UNA ARCE ([phone])[facility] [place] (SBHLAB)[address] Anion gap [Moles/Vol] 9 mmol/L Normal 3-13 [facility] Comment on above: Performed By: #### L AB17, [id number] ####Estimator And Drafter Supervisor: UNA ARCE ([phone])[facility] [place] (SBHLAB)[address] AST [Catalytic activity/Vol] 21 U/L Normal <34 [facility] Comment on above: Performed By: #### L AB17, [id number] ####Estimator And Drafter Supervisor: UNA ARCE ([phone])[facility] [place] (SBHLAB)[address] Bilirubin [Mass/Vol] 0.6 mg/dL Normal <1.2 [facility] Comment on above: Performed By: #### L AB17, [id number] ####Estimator And Drafter Supervisor: UNA ARCE ([phone])[facility] [place] (SBHLAB)[address] Calcium [Mass/Vol] 8.2 mg/dL Low 8.8-10.0 [facility] Comment on above: Performed By: #### L AB17, [id number] ####Estimator And Drafter Supervisor: UNA ARCE ([phone])[facility] [place] (SBHLAB)155 [place] [address] [place] Chloride [Moles/Vol] 90 mmol/L Low 98-107 [facility] Comment on above: Performed By: #### L AB17, [id number] ####Estimator And Drafter Supervisor: UNA ARCE ([phone])[facility] [place] (SBHLAB)[address] CO2 [Moles/Vol] 40 mmol/L High 23-31 [facility] Comment on above: Performed By: #### L AB17, [id number] ####Estimator And Drafter Supervisor: UNA ARCE ([phone])[facility] [place] (SBHLAB)[address] Creatinine [Mass/Vol] 1.58 mg/dL High 0.72-1.25 [facility] Comment on above: Performed By: #### L AB17, [id number] ####Estimator And Drafter Supervisor: UNA ARCE ([phone])[facility]ITALAngel [facility]ZFOUR [facility]ERN (SBHLAB)[address] GLOMERULAR FILTRATION RATE ML/MIN/1.73 SQ M.PREDICTED 41.6 mL/min/1.73m*2 Low >60.0 [facility] Comment on above: Result Comment: Calc ulation based on the Chronic Kidney Disease Epidemiology Collaboration (CKD-EPI) equation refit without adjustment for race Performed By: #### L AB17, [id number] ####Estimator And Drafter Supervisor: UNA ARCE ([phone])[facility]ITALAngel [facility]ZFOUR [facility] (SBHLAB)[address] Glucose [Mass/Vol] 130 mg/dL High 82-115 [facility] Comment on above: Performed By: #### L AB17, [id number] ####Estimator And Drafter Supervisor: UNA ARCE ([phone])[facility]ZFOUR [facility] (SBHLAB)[address] Potassium [Moles/Vol] 3.5 mmol/L Normal 3.5-5.1 [facility] Comment on above: Result Comment: [facility] potassium values may be up to 0.5 mmol/L lower than serum values. Performed By: #### L AB17, [id number] ####Estimator And Drafter Supervisor: UNA ARCE ([phone])[facility]ZFOUR [facility] (SBHLAB)[address] Protein [Mass/Vol] 5.7 g/dL Low 6.4-8.3 [facility] Comment on above: Performed By: #### L AB17, [id number] ####Estimator And Drafter Supervisor: UNA BERMUDEZSILASMELANIE ([phone])[facility] (SBHLAB)[address] Sodium [Moles/Vol] 139 mmol/L Normal 136-145 [facility] Comment on above: Performed By: #### L AB17, [id number] ####Estimator And Drafter Supervisor: UNA BERMUDEZPEDRO ([phone])[facility] (SBHLAB)[address] Urea nitrogen [Mass/Vol] 43 mg/dL High 9-23 [facility] Comment on above: Performed By: #### L AB17, [id number] ####Estimator And Drafter Supervisor: UNAANJEL BERMUDEZPEDRO ([phone])[facility] (SBHLAB)[address] Comprehensive metabolic 1998 panelon 04-15-2025 Albumin [Mass/Vol] 2.1 g/dL Low 3.4 - 4.8 g/dL [facility] ALP [Catalytic activity/Vol] 48 U/L 40 - 150 U/L [facility] ALT [Catalytic activity/Vol] U/L [facility] U/L [facility] Anion gap [Moles/Vol] 9 mmol/L 3 - 13 mmol/L [facility] AST [Catalytic activity/Vol] 21 U/L [facility] - 34 U/L [facility] Bilirubin [Mass/Vol] 0.6 mg/dL NINF - 1.2 mg/dL [facility] Calcium [Mass/Vol] 8.2 mg/dL Low 8.8 - 10. 0 mg/dL [facility] Chloride [Moles/Vol] 90 mmol/L Low 98 - 10 7 mmol/L [facility] CO2 [Moles/Vol] 40 mmol/L High 23 - 31 mmol/L [facility] Creatinine [Mass/Vol] 1.58 mg/dL High 0.72 - 1.25 mg/dL [facility] GFR/1.73 sq M.predicted (S/P/Bld) [Vol rate/Area] 41.6 mL/min Low - PINF [facility] Glucose [Mass/Vol] 130 mg/dL High 82 - 115 mg/dL [facility] Interpretation and review of laboratory results Abnormal [facility] Potassium [Moles/Vol] 3.5 mmol/L 3.5 - 5.1 mmol/L [facility] Protein [Mass/Vol] 5.7 g/dL Low 6.4 - 8.3 g/dL [facility] Sodium [Moles/Vol] 139 mmol/L 136 - 145 mmol/L [facility] Urea nitrogen [Mass/Vol] 43 mg/dL High 9 - 23 mg/d L [facility] Laboratory - Chemistry and C hemistry - challengeon 04-15-2025 Magnesium [Mass/Vol] 1.8 mg/dL 1.6 - 2 .6 mg/dL [facility] - Hematology and Cell countson 04-15-2025 Anisocytosis Ql (Bld) Moderate Abnormal (none) [facility] Basophils (Bld) [#/Vol] 0.2 10*3/uL 0.0 - 0.2 10*3/uL [facility] Basophils/100 WBC (Bld) 2 % 0 - 2 % [facility] Eosinophils (Bld) [#/Vol] 0.1 10*3/uL 0.0 - 0.5 10*3/uL [facility] Eosinophils/100 WBC (Bld) 1 % 0 - 6 % [facility] Hypochromia Ql (Bld) Moderate Abnormal (none) [facility] Lymphocytes (Bld) [#/Vol] 1.2 10*3/uL 1.0 - 4.3 10*3/uL [facility] Lymphocytes/100 WBC (Bld) 10 % Low 15 - 45 % [facility] Monocytes (Bld) [#/Vol] 1.6 10*3/uL High 0.0 - 0.9 10*3/uL [facility] Monocytes/100 WBC (Bld) 13 % 5 - 13 % [facility] Neutrophils (Bld) [#/Vol] 9.3 10*3/uL High 1.8 - 7.5 10*3/uL [facility] Poikilocytosis LM Ql (Bld) Slight Abnormal (none) [facility] RBC morphology finding Nom (Bld) abnormal [facility] Segmented neutrophils/100 WBC (Bld) 75 % 38 - 82 % [facility] Stomatocytes LM Ql (Bld) Slight Abnormal (none) [facility] - Microbiology an d Antimicrobial susceptibilityon 04-15-2025 Bacteria identified Anaer cx Nom (Unsp spec) No growth at 5 days [facility] Lower GI hemoglobin spec 1 I A Ql (Stl)Ordered By: Haroldo Alvarez on 04-15-2025 Fecal occult blood Negative Negative [facility] Interpretation and review of laboratory results Normal [facility] MAGNESIUMon 04-15-2025 Magnesium [Mass/Vol] 1.8 mg/dL Normal 1.6-2.6 [facility] Comment on above: Result Comment: YARELI R COMMENTS:Higher values can be expected in females during menses. Performed By: #### L AB17, [id number] ####Estimator And Drafter Supervisor: UNA ARCE ([phone])[facility]Angel [facility] (SB[facility])[address] [place] [address] MANUAL DIFFERENTIAL (CELLAVI BANDAR)on 04-15-2025 ANISOCYTOSIS PRESENCE IN BLOOD BY LIGHT MICROSCOPY Moderate Abnormal (none) [facility] Comment on above: Performed By: #### L [id number], [id number] ####Estimator And Drafter Supervisor: UNA ARCE ([phone])[facility] (SBAB)[address] BAND NEUTROPHILS TOTAL PER COUNTED LEUKOCYTES BY MANUAL COUNT Normal [facility] Comment on above: Performed By: #### L [id number], [id number] ####Estimator And Drafter Supervisor: UNA ARCE ([phone])[facility]ITALAngel [facility] (SBHLAB)[address] BASOPHILS (10*3/UL) IN BLOOD-CELLAVISION 0.2 10*3/uL Normal 0.0-0.2 [facility] Comment on above: Performed By: #### L [id number], [id number] ####Estimator And Drafter Supervisor: UNA ARCE ([phone])[facility] (SBHLAB)[address] BASOPHILS TOTAL PER COUNTED LEUKOCYTES BY MANUAL COUNT 2 Normal [facility] Comment on above: Performed By: #### L [id number], [id number] ####Estimator And Drafter Supervisor: UNA ARCE ([phone])[facility]ITALA [place] (SBHLAB)[address] [place] [address] [place] BASOPHILS/100 LEUKOCYTES IN BLOOD-CELLAVISION 2 % Normal 0-2 [facility] Comment on above: Performed By: #### L [id number], [id number] ####Estimator And Drafter Supervisor: UNA ARCE ([phone])[facility] [place] (SBHLAB)[address] [place] [address] [place] BLASTS TOTAL PER COUNTED LEUKOCYTES BY MANUAL COUNT Normal [facility] Comment on above: Performed By: #### L [id number], [id number] ####Estimator And Drafter Supervisor: UNA STAUFFERMELANIE ([phone])[facility] [place] (SBHLAB)[address] [place] [address] [place] EOSINOPHILS (10*3/UL) IN BLOOD-CELLAVISION 0.1 10*3/uL Normal 0.0-0.5 [facility] Comment on above: Performed By: #### L [id number], [id number] ####Estimator And Drafter Supervisor: UNA ARCE ([phone])[facility] [place] (SBHLAB)[address] [place] [address] [place] EOSINOPHILS TOTAL PER COUNTED LEUKOCYTES BY MANUAL COUNT 1 Normal 0-1 [facility] Comment on above: Performed By: #### L [id number], [id number] ####Estimator And Drafter Supervisor: UNA ARCE ([phone])[facility] [place] (SBHLAB)[address] [place] [address] [place] EOSINOPHILS/100 LEUKOCYTES IN BLOOD-CELLAVISION 1 % Normal 0-6 [facility] Comment on above: Performed By: #### L [id number], [id number] ####Estimator And Drafter Supervisor: UNA ARCE ([phone])[facility] [place] (SBHLAB)[address] [place] [address] [place] HYPOCHROMIA (PRESENCE) IN BLOOD BY LIGHT MICROSCOPY Moderate Abnormal (none) [facility] Comment on above: Performed By: #### L [id number], [id number] ####Estimator And Drafter Supervisor: UNA ARCE ([phone])[facility] [place] (SBHLAB)[address] [place] [address] [place] LYMPHOCYTES (10*3/UL) IN BLOOD-CELLAVISION 1.2 10*3/uL Normal 1.0-4.3 [facility] Comment on above: Performed By: #### L [id number], [id number] ####Estimator And Drafter Supervisor: UNA ARCE ([phone])[facility] [place] (SBHLAB)[address] LYMPHOCYTES TOTAL PER COUNTED LEUKOCYTES BY MANUAL COUNT 10 Normal [facility] Comment on above: Performed By: #### L [id number], [id number] ####Estimator And Drafter Supervisor: UNA ARCE ([phone])[facility] [place] (SBHLAB)[address] [place] [address] [place] LYMPHOCYTES/100 LEUKOCYTES IN BLOOD-CELLAVISION 10 % Low 15-45 [facility] Comment on above: Performed By: #### L [id number], [id number] ####Estimator And Drafter Supervisor: UNA ARCE ([phone])[facility] [place] (SBHLAB)[address] [place] [address] [place] METAMYELOCYTES TOTAL PER COUNTED LEUKOCYTES BY MANUAL COUNT Normal [facility] Comment on above: Performed By: #### L [id number], [id number] ####Estimator And Drafter Supervisor: UNA ARCE ([phone])[facility] [place] (SBHLAB)[address] [place] [address] [place] MONOCYTES (10*3/UL) IN BLOOD-CELLAVISION 1.6 10*3/uL High 0.0-0.9 [facility] Comment on above: Performed By: #### L [id number], [id number] ####Estimator And Drafter Supervisor: UNA ARCE ([phone])[facility] [place] (SBHLAB)[address] [place] [address] [place] MONOCYTES TOTAL PER COUNTED LEUKOCYTES BY MANUAL COUNT 13 Normal [facility] Comment on above: Performed By: #### L [id number], [id number] ####Estimator And Drafter Supervisor: UNA STAUFFERMELANIE ([phone])[facility] [place] (SBHLAB)[address] [place] [address] [place] MONOCYTES/100 LEUKOCYTES IN BLOOD-LUCIANA 13 % Normal - [facility] Comment on above: Performed By: #### L [id number], [id number] ####Estimator And Drafter Supervisor: UNA STAUFFERMELANIE ([phone])[facility] [place] (SBHLAB)[address] [place] [address] [place] MYELOCYTES COUNTED BY MANUAL COUNT [facility] Comment on above: Performed By: #### L [id number], [id number] ####Estimator And Drafter Supervisor: UNA STAUFFERMELANIE ([phone])[facility] [place] (SBHLAB)[address] [place] [address] [place] NEUTROPHILS TOTAL PER COUNTED LEUKOCYTES BY MANUAL COUNT 77 Normal [facility] Comment on above: Performed By: #### L [id number], [id number] ####Estimator And Drafter Supervisor: UNA ARCE ([phone])[facility] [place] (SBHLAB)[address] [place] [address] [place] POIKILOCYTOSIS (PRESENCE) IN BLOOD BY LIGHT MICROSCOPY Slight Abnormal (none) [facility] Comment on above: Performed By: #### L [id number], [id number] ####Estimator And Drafter Supervisor: UNA ARCE ([phone])[facility] [place] (SBHLAB)[address] [place] [address] [place] PROMYELOCYTES TOTAL PER COUNTED LEUKOCYTES BY MANUAL COUNT [facility] Comment on above: Performed By: #### L [id number], [id number] ####Estimator And Drafter Supervisor: UNA ARCE ([phone])[facility] [place] (SBHLAB)[address] [place] [address] [place] RBC MORPHOLOGY IN BLOOD abnormal Normal [facility] Comment on above: Performed By: #### L [id number], [id number] ####Estimator And Drafter Supervisor: UNA ARCE ([phone])[facility]A [facility] (SBHLAB)[address] SEGMENTED NEUTROPHILS (10*3/UL) IN BLOOD-CELLAVISION 9.3 10*3/uL High 1.8-7.5 [facility] Comment on above: Performed By: #### L [id number], [id number] ####Estimator And Drafter Supervisor: UNA ARCE ([phone])[facility]A [facility] (SBHLAB)[address] SEGMENTED NEUTROPHILS/100 LEUKOCYTES-CE 75 % Normal 38-82 [facility] Comment on above: Performed By: #### L [id number], [id number] ####Estimator And Drafter Supervisor: UNA ARCE ([phone])[facility] (SBHLAB)[address] STOMATOCYTES IN BLOOD BY LIGHT MICROSCOPY Slight Abnormal (none) [facility] Comment on above: Performed By: #### L [id number], [id number] ####Estimator And Drafter Supervisor: UNA ARCE ([phone])[facility] (SBHLAB)[address] UNCLASSIFIED CELLS TOTAL PER COUNTED LEUKOCYTES BY MANUAL COUNT Normal [facility] Comment on above: Performed By: #### L [id number], [id number] ####Estimator And Drafter Supervisor: UNA ARCE ([phone])[facility] (SBHLAB)[address] VARIANT LYMPHOCYTES TOTAL PER COUNTED LEUKOCYTES BY MANUAL COUNT Normal [facility] Comment on above: Performed By: #### L [id number], [id number] ####Estimator And Drafter Supervisor: UNA ARCE ([phone])[facility] (SBHLAB)[address] [place] [address] [place] Magnesium [Mass/Vol]on 04-15 Interpretation and review of laboratory results Normal [facility] No Panel Informationon 04-15 Basophils Manual 2 [facility] alth Eosinophils Manual 1 0 - 1 [facility] Interpretation and review of laboratory results Abnormal [facility] Lymphocytes Manual 10 [facility] Monocytes Manual 13 [facility] alth Neutrophils Manual 77 [facility] OCCULT BLOOD, STOOLon 2024 OCCULT BLOOD, STOOL FECAL OCCULT, STOOL Reference Negative Negative ORDER COMMENTS: Methodology: Immunoassay Normal [facility] Comment on above: Performed By: #### L [id number] ####Estimator And Drafter Supervisor: UNA ARCE ([phone])[facility] ([facility] [place] [address] Progress Noteon 04-15-2025 Progress Note Normal [facility] Progress Note [facility] Progress Note [facility] Progress [facility] XR Chest Single viewon 04-15 [facility] Radiology Study observation (narrative) Lynette Balderrama alth [id number] 04-14-2025 [id number] Normal [facility] Bacteria identified Anaer cx Nom (Unsp spec)on 04-14-2025 Interpretation and review of laboratory results Normal [facility] CBC W Auto Differential pane l (Bld)on 04-14-2025 Erythrocyte distribution width (RBC) [Ratio] 25.4 % High 11.5 - 15.0 % [facility] Hematocrit (Bld) [Volume fraction] 27.3 % Low 40.0 - 52.0 % [facility] Hemoglobin (Bld) [Mass/Vol] 7.6 g/dL Low 13.0 - 18.0 g/dL [facility] MCH (RBC) [Entitic mass] 23.2 pg Low 26. 0 - 34.0 pg [facility] MCHC (RBC) [Mass/Vol] 27.8 % Low 30.5 - 36.0 % [facility] MCV (RBC) [Entitic vol] 83.5 fL 77.0 - 99.0 fL [facility] Platelet mean volume (Bld) [Entitic vol] 8.9 fL Low 9.0 - 12.7 fL [facility] Platelets (Bld) [#/Vol] 293 10*3/uL 140 - 440 10*3/uL [facility] RBC (Bld) [#/Vol] 3.27 10*6/uL Low 4.40 - 5.9 0 10*6/uL [facility] WBC (Bld) [#/Vol] 12.3 10*3/uL High 3.6 - 10.7 10*3/uL [facility] CBC WITH AUTO DIFFERENTIALon 04-14-2025 Erythrocyte distribution width (RBC) [Ratio] 25.4 % High 11.5-15.0 [facility] Comment on above: Performed By: #### L [id number], [id number] ####Estimator And Drafter Supervisor: UNA ARCE ([phone])[facility] (SBAB)[address] [place] [address] Hematocrit (Bld) [Volume fraction] 27.3 % Low 40.0-52.0 [facility] Comment on above: Performed By: #### L [id number], [id number] ####Estimator And Drafter Supervisor: UNA ARCE ([phone])[facility] (SBHLAB)[address] [place] [address] Hemoglobin (Bld) [Mass/Vol] 7.6 g/dL Low 13.0-18.0 [facility] Comment on above: Performed By: #### L [id number], [id number] ####Estimator And Drafter Supervisor: UNA ARCE ([phone])[facility] (SBHLAB)[address] [place] [address] MCH (RBC) [Entitic mass] 23.2 pg Low 26.0-34.0 [facility] Comment on above: Performed By: #### L [id number], [id number] ####Estimator And Drafter Supervisor: UNA ARCE ([phone])[facility] (SBHLAB)[address] [place] [address] MCHC 27.8 % Low 30.5-36.0 [facility] Comment on above: Performed By: #### L [id number], [id number] ####Estimator And Drafter Supervisor: UNA ARCE ([phone])[facility] (SBAB)[address] MCV (RBC) [Entitic vol] 83.5 fL Normal 77.0-99.0 [facility] Comment on above: Performed By: #### L [id number], [id number] ####Estimator And Drafter Supervisor: UNA ARCE ([phone])[facility] (SBHLAB)[address] Platelet mean volume (Bld) [Entitic vol] 8.9 fL Low 9.0-12.7 [facility] Comment on above: Performed By: #### L [id number], [id number] ####Estimator And Drafter Supervisor: UNA ARCE ([phone])[facility]ITALAngel [place] (SBHLAB)[address] Platelets (Bld) [#/Vol] 293 10*3/uL Normal 140-440 [facility] Comment on above: Performed By: #### L [id number], [id number] ####Estimator And Drafter Supervisor: UNA ARCE ([phone])[facility] [place] (SBHLAB)[address] RBC (Bld) [#/Vol] 3.27 10*6/uL Low 4.40-5.90 [facility] Comment on above: Performed By: #### L [id number], [id number] ####Estimator And Drafter Supervisor: UNA ARCE ([phone])[facility] [place] (SBHLAB)[address] WBC (Bld) [#/Vol] 12.3 10*3/uL High 3.6-10.7 [facility] Comment on above: Performed By: #### L [id number], [id number] ####Estimator And Drafter Supervisor: UNA ARCE ([phone])[facility] (SBHLAB)[address] COMPREHENSIVE METABOLIC PANE Anant 04-14-2025 Albumin [Mass/Vol] 2.1 g/dL Low 3.4-4.8 [facility] Comment on above: Performed By: #### L [id number], [id number] ####Estimator And Drafter Supervisor: UNA ARCE ([phone])[facility]CK[facility]N (SBHLAB)[address] ALP [Catalytic activity/Vol] 47 U/L Normal 40-150 [facility] Comment on above: Performed By: #### L [id number], LAB17 ####Estimator And Drafter Supervisor: UAN ARCE ([phone])[facility] [place] (SBHLAB)[address] ALT [Catalytic activity/Vol] U/L Normal <40 [facility] Comment on above: Performed By: #### L AB103, LAB17 ####Estimator And Drafter Supervisor: UNA ARCE ([phone])[facility] (SBHLAB)[address] Anion gap [Moles/Vol] 9 mmol/L Normal 3-13 [facility] Comment on above: Performed By: #### L [id number], LAB17 ####Estimator And Drafter Supervisor: UNA ARCE ([phone])[facility] (SBHLAB)[address] AST [Catalytic activity/Vol] 19 U/L Normal <34 [facility] Comment on above: Performed By: #### L AB103, LAB17 ####Estimator And Drafter Supervisor: UNA ARCE ([phone])[facility] [place] (SBHLAB)[address] Bilirubin [Mass/Vol] 0.6 mg/dL Normal <1.2 [facility] Comment on above: Performed By: #### L AB103, LAB17 ####Estimator And Drafter Supervisor: UNA ARCE ([phone])[facility] ([facility])[address] Calcium [Mass/Vol] 8.1 mg/dL Low 8.8-10.0 [facility] Comment on above: Performed By: #### L AB103, LAB17 ####Estimator And Drafter Supervisor: UNA ARCE ([phone])[facility] (SBHLAB)[address] Chloride [Moles/Vol] 92 mmol/L Low 98-107 [facility] Comment on above: Performed By: #### L AB103, LAB17 ####Estimator And Drafter Supervisor: UNA ARCE ([phone])[facility] [place] ([facility])[address] CO2 [Moles/Vol] 39 mmol/L High 23-31 [facility] Comment on above: Performed By: #### L [id number], [id number] ####Estimator And Drafter Supervisor: UNA ARCE ([phone])[facility] [place] (SB[place])[address] Creatinine [Mass/Vol] 1.43 mg/dL High 0.72-1.25 [facility] Comment on above: Performed By: #### L AB103, LAB17 ####Estimator And Drafter Supervisor: UNA ARCE ([phone])[facility] [place] ([facility])[address] GLOMERULAR FILTRATION RATE ML/MIN/1.73 SQ M.PREDICTED 46.8 mL/min/1.73m*2 Low >60.0 [facility] Comment on above: Result Comment: Calc ulation based on the Chronic Kidney Disease Epidemiology Collaboration (CKD-EPI) equation refit without adjustment for race Performed By: #### L AB103, LAB17 ####Estimator And Drafter Supervisor: UNA ARCE ([phone])[facility] [place] (SBHLAB)155 [place] [address] [place] Glucose [Mass/Vol] 97 mg/dL Normal 82-115 [facility] Comment on above: Performed By: #### L [id number], [id number] ####Estimator And Drafter Supervisor: UNA ARCE ([phone])[facility] [place] ([facility])[address] [place] [address] [place] Potassium [Moles/Vol] 3.8 mmol/L Normal 3.5-5.1 [facility] Comment on above: Result Comment: [facility] potassium values may be up to 0.5 mmol/L lower than serum values. Performed By: #### L AB103, LAB17 ####Estimator And Drafter Supervisor: UNA ARCE ([phone])[facility] ([facility])[address] Protein [Mass/Vol] 5.7 g/dL Low 6.4-8.3 [facility] Comment on above: Performed By: #### L AB103, LAB17 ####Estimator And Drafter Supervisor: UNA ARCE ([phone])[facility] ([facility])[address] Sodium [Moles/Vol] 140 mmol/L Normal 136-145 [facility] Comment on above: Performed By: #### L AB103, LAB17 ####Estimator And Drafter Supervisor: UNA ARCE ([phone])[facility] ([facility])[address] Urea nitrogen [Mass/Vol] 39 mg/dL High 9-23 [facility] Comment on above: Performed By: #### L AB103, LAB17 ####Estimator And Drafter Supervisor: UNA STAUFFERMELANIE ([phone])[facility] (SBHLAB)[address] Comprehensive metabolic 1998 panelon 04-14-2025 Albumin [Mass/Vol] 2.1 g/dL Low 3.4 - 4.8 g/dL [facility] ALP [Catalytic activity/Vol] 47 U/L 40 - 150 U/L [facility] ALT [Catalytic activity/Vol] U/L NINF - 40 U/L [facility] Anion gap [Moles/Vol] 9 mmol/L 3 - 13 mmol/L [facility] AST [Catalytic activity/Vol] 19 U/L NINF - 34 U/L [facility] Bilirubin [Mass/Vol] 0.6 mg/dL NINF - 1.2 mg/dL [facility] Calcium [Mass/Vol] 8.1 mg/dL Low 8.8 - 10. 0 mg/dL [facility] Chloride [Moles/Vol] 92 mmol/L Low 98 - 10 7 mmol/L [facility] CO2 [Moles/Vol] 39 mmol/L High 23 - 31 mmol/L [facility] Creatinine [Mass/Vol] 1.43 mg/dL High 0.72 - 1.25 mg/dL [facility] GFR/1.73 sq M.predicted (S/P/Bld) [Vol rate/Area] 46.8 mL/min Low - PINF [facility] Glucose [Mass/Vol] 97 mg/dL 82 - 115 mg/dL [facility] Interpretation and review of laboratory results Abnormal [facility] Potassium [Moles/Vol] 3.8 mmol/L 3.5 - 5.1 mmol/L [facility] Protein [Mass/Vol] 5.7 g/dL Low 6.4 - 8.3 g/dL [facility] Sodium [Moles/Vol] 140 mmol/L 136 - 145 mmol/L [facility] Urea nitrogen [Mass/Vol] 39 mg/dL High 9 - 23 mg/d L [facility] Consulton 04-14-2025 Consult Normal [facility] ECG 12-LEADon 04-14-2025 ECG 12-LEAD IMPRESSION: Sinus arrhythmia LEFT ANTERIOR FASCICULAR BLOCK MULTIPLE ATRIAL PREMATURE COMPLEXES Compared to ECG 04/05/2025 15:59:31 No significant changes Electronically Signed On 04-14-2025 07:12:58 EDT by Ronal Maurice Normal [facility] Laboratory - Chemistry and C hemistry - challengeon 04-14-2025 Magnesium [Mass/Vol] 1.9 mg/dL 1.6 - 2 .6 mg/dL [facility] Laboratory - Hematology and Cell countson 04-14-2025 Anisocytosis Ql (Bld) Slight Abnormal (none) [facility] Basophils (Bld) [#/Vol] 0.1 10*3/uL 0.0 - 0.2 10*3/uL [facility] Basophils/100 WBC (Bld) 1 % 0 - 2 % [facility] Eosinophils (Bld) [#/Vol] 0.4 10*3/uL 0.0 - 0.5 10*3/uL [facility] Eosinophils/100 WBC (Bld) 3 % 0 - 6 % [facility] Hypochromia Ql (Bld) Moderate Abnormal (none) [facility] Lymphocytes (Bld) [#/Vol] 0.9 10*3/uL Low 1.0 - 4.3 10*3/uL [facility] Lymphocytes/100 WBC (Bld) 7 % Low 15 - 45 % [facility] Monocytes (Bld) [#/Vol] 1.8 10*3/uL High 0.0 - 0.9 10*3/uL [facility] Monocytes/100 WBC (Bld) 15 % High 5 - 13 % [facility] Neutrophils (Bld) [#/Vol] 9.1 10*3/uL High 1.8 - 7.5 10*3/uL [facility] Poikilocytosis LM Ql (Bld) Slight Abnormal (none) [facility] RBC morphology finding Nom (Bld) abnormal [facility] Segmented neutrophils/100 WBC (Bld) 74 % 38 - 82 % [facility] Stomatocytes LM Ql (Bld) Moderate Abnormal (none) [facility] Variant lymphocytes (Bld) [#/Vol] 0.1 10*3/uL High NINF - 0.0 10*3/uL [facility] Variant lymphocytes/100 WBC (Bld) 1 % High NINF - 0 % [facility] - Microbiology an d Antimicrobial susceptibilityon 04-14-2025 Bacteria identified Anaer cx Nom (Unsp spec) No growth at 5 days [facility] MAGNESIUMon 04-14-2025 Magnesium [Mass/Vol] 1.9 mg/dL Normal 1.6-2.6 [facility] Comment on above: Result Comment: YARELI [place] COMMENTS:Higher values can be expected in females during menses. Performed By: #### L AB103, LAB17 ####Estimator And Drafter Supervisor: UNA ARCE ([phone])[facility] (SBAB)[address] MANUAL DIFFERENTIAL (CELLAVI BANDAR)on 04-14-2025 ANISOCYTOSIS PRESENCE IN BLOOD BY LIGHT MICROSCOPY Slight Abnormal (none) [facility] Comment on above: Performed By: #### L [id number], [id number] ####Estimator And Drafter Supervisor: UNA ARCE ([phone])[facility] [place] (SBHLAB)[address] [place] [address] [place] BAND NEUTROPHILS TOTAL PER COUNTED LEUKOCYTES BY MANUAL COUNT [facility] Comment on above: Performed By: #### L [id number], [id number] ####Estimator And Drafter Supervisor: UNA ARCE ([phone])[facility] [place] (SB[facility])[address] [place] [address] [place] BASOPHILS (10*3/UL) IN BLOOD-CELLAVISION 0.1 10*3/uL Normal 0.0-0.2 [facility] Comment on above: Performed By: #### L [id number], [id number] ####Estimator And Drafter Supervisor: UNA ARCE ([phone])[facility] [place] (SB[facility])[address] [place] [address] [place] BASOPHILS TOTAL PER COUNTED LEUKOCYTES BY MANUAL COUNT 1 [facility] Comment on above: Performed By: #### L [id number], [id number] ####Estimator And Drafter Supervisor: UNA ARCE ([phone])[facility] [place] (SB[facility])[address] [place] [address] [place] BASOPHILS/100 LEUKOCYTES IN BLOOD-CELLAVISION 1 % Normal 0-2 [facility] Comment on above: Performed By: #### L [id number], [id number] ####Estimator And Drafter Supervisor: UNA ARCE ([phone])[facility] [place] (SB[facility])[address] [place] [address] [place] BLASTS TOTAL PER COUNTED LEUKOCYTES BY MANUAL COUNT [facility] Comment on above: Performed By: #### L [id number], [id number] ####Estimator And Drafter Supervisor: UNA ARCE ([phone])[facility] [place] ([facility])[address] [place] [address] [place] EOSINOPHILS (10*3/UL) IN BLOOD-CELLAVISION 0.4 10*3/uL Normal 0.0-0.5 [facility] Comment on above: Performed By: #### L [id number], [id number] ####Estimator And Drafter Supervisor: UNA ARCE ([phone])[facility] [place] (SBHLAB)[address] [place] [address] [place] EOSINOPHILS TOTAL PER COUNTED LEUKOCYTES BY MANUAL COUNT 3 High 0-1 [facility] Comment on above: Performed By: #### L [id number], [id number] ####Estimator And Drafter Supervisor: UNA ARCE ([phone])[facility] [place] (SBHLAB)[address] [place] [address] [place] EOSINOPHILS/100 LEUKOCYTES IN BLOOD-CELLAVISION 3 % Normal 0-6 [facility] Comment on above: Performed By: #### L [id number], [id number] ####Estimator And Drafter Supervisor: UNA ARCE ([phone])[facility] [place] (SBHLAB)[address] [place] [address] [place] HYPOCHROMIA (PRESENCE) IN BLOOD BY LIGHT MICROSCOPY Moderate Abnormal (none) [facility] Comment on above: Performed By: #### L [id number], [id number] ####Estimator And Drafter Supervisor: NUA ARCE ([phone])[facility] [place] (SB[facility])[address] [place] [address] [place] LYMPHOCYTE VARIANT/100 LEUKOCYTES IN BLOOD- CELLAVISION 1 % High <=0 [facility] Comment on above: Performed By: #### L [id number], [id number] ####Estimator And Drafter Supervisor: UNA ARCE ([phone])[facility] [place] ([facility])[address] [place] [address] [place] LYMPHOCYTES (10*3/UL) IN BLOOD-CELLAVISION 0.9 10*3/uL Low 1.0-4.3 [facility] Comment on above: Performed By: #### L [id number], [id number] ####Estimator And Drafter Supervisor: UNA ARCE ([phone])[facility] [place] ([facility])[address] [place] [address] [place] LYMPHOCYTES TOTAL PER COUNTED LEUKOCYTES BY MANUAL COUNT 7 Normal [facility] Comment on above: Performed By: #### L [id number], [id number] ####Estimator And Drafter Supervisor: UNA ARCE ([phone])[facility] [place] (SBHLAB)[address] [place] [address] [place] LYMPHOCYTES/100 LEUKOCYTES IN BLOOD-CELLAVISION 7 % Low 15-45 [facility] Comment on above: Performed By: #### L [id number], [id number] ####Estimator And Drafter Supervisor: UNA ARCE ([phone])[facility] [place] (SB[facility])[address] [place] [address] [place] METAMYELOCYTES TOTAL PER COUNTED LEUKOCYTES BY MANUAL COUNT Normal [facility] Comment on above: Performed By: #### L [id number], [id number] ####Estimator And Drafter Supervisor: UNA ARCE ([phone])[facility] [place] ([facility])[address] [place] [address] [place] MONOCYTES (10*3/UL) IN BLOOD-CELLAVISION 1.8 10*3/uL High 0.0-0.9 [facility] Comment on above: Performed By: #### L [id number], [id number] ####Estimator And Drafter Supervisor: UNA ARCE ([phone])[facility] [place] ([facility])[address] [place] [address] [place] MONOCYTES TOTAL PER COUNTED LEUKOCYTES BY MANUAL COUNT 15 Normal [facility] Comment on above: Performed By: #### L [id number], [id number] ####Estimator And Drafter Supervisor: UNA ARCE ([phone])[facility] [place] (SBHLAB)[address] [place] [address] [place] MONOCYTES/100 LEUKOCYTES IN BLOOD-LUCIANA 15 % High 5-13 [facility] Comment on above: Performed By: #### L [id number], [id number] ####Estimator And Drafter Supervisor: UNA ARCE ([phone])[facility] [place] ([facility])[address] [place] [address] [place] MYELOCYTES COUNTED BY MANUAL COUNT [facility] Comment on above: Performed By: #### L [id number], [id number] ####Estimator And Drafter Supervisor: UNA ARCE ([phone])[facility] [place] ([facility])[address] [place] [address] [place] NEUTROPHILS TOTAL PER COUNTED LEUKOCYTES BY MANUAL COUNT 75 Normal [facility] Comment on above: Performed By: #### L [id number], [id number] ####Estimator And Drafter Supervisor: UNA ARCE ([phone])[facility] [place] ([facility])[address] POIKILOCYTOSIS (PRESENCE) IN BLOOD BY LIGHT MICROSCOPY Slight Abnormal (none) [facility] Comment on above: Performed By: #### L [id number], [id number] ####Estimator And Drafter Supervisor: UNA MOHRCER ([phone])[facility] [place] ([facility])[address] PROMYELOCYTES TOTAL PER COUNTED LEUKOCYTES BY MANUAL COUNT Normal [facility] Comment on above: Performed By: #### L [id number], [id number] ####Estimator And Drafter Supervisor: UNA ARCE ([phone])[facility] [place] ([facility])[address] [place] [address] [place] RBC MORPHOLOGY IN BLOOD abnormal Normal [facility] Comment on above: Performed By: #### L [id number], [id number] ####Estimator And Drafter Supervisor: UNA ARCE ([phone])[facility] [place] ([facility])[address] [place] [address] [place] SEGMENTED NEUTROPHILS (10*3/UL) IN BLOOD-CELLAVISION 9.1 10*3/uL High 1.8-7.5 [facility] Comment on above: Performed By: #### L [id number], [id number] ####Estimator And Drafter Supervisor: UNA ARCE ([phone])[facility] [place] ([facility])[address] [place] [address] [place] SEGMENTED NEUTROPHILS/100 LEUKOCYTES-CE 74 % Normal 38-82 [facility] Comment on above: Performed By: #### L [id number], [id number] ####Estimator And Drafter Supervisor: UNA ARCE ([phone])[facility] [place] (SB[facility])[address] [place] [address] [place] STOMATOCYTES IN BLOOD BY LIGHT MICROSCOPY Moderate Abnormal (none) [facility] Comment on above: Performed By: #### L [id number], [id number] ####Estimator And Drafter Supervisor: UNA ARCE ([phone])[facility] (SBHLAB)[address] [place] [address] [place] UNCLASSIFIED CELLS TOTAL PER COUNTED LEUKOCYTES BY MANUAL COUNT Normal [facility] Comment on above: Performed By: #### L [id number], [id number] ####Estimator And Drafter Supervisor: UNA ARCE ([phone])[facility] ([place])[address] VARIANT LYMPHOCYTES (10*3/UL) IN BLOOD-CELLAVISION 0.1 10*3/uL High <=0.0 [facility] Comment on above: Performed By: #### L [id number], [id number] ####Estimator And Drafter Supervisor: UNA ARCE ([phone])[facility] ([place])[address] VARIANT LYMPHOCYTES TOTAL PER COUNTED LEUKOCYTES BY MANUAL COUNT 1 Normal [facility] Comment on above: Performed By: #### L [id number], [id number] ####Estimator And Drafter Supervisor: UNA ARCE ([phone])[facility] ([place])[address] [place] [address] [place] Magnesium [Mass/Vol]on 04-14 Interpretation and review of laboratory results Normal [facility] No Panel Informationon 04-14 [facility] Radiology Study observation (narrative) [facility] ander Case Report [facility] Case Screening Location [facility], [address] [place] [address]; CLIA: [id number]; Joint Commission: [id number]; CAP: [id number] [facility] Comment [id number] M YgfnzDaUWNozBOlH3Rcwd ogUDubUX6bZX7xyYayjFM eeEHeNOXlApZqj0uot539 kDLpr3qgPUAUJXlyWZRAH Wt0oNlnG24sj8T1CmuuJ1 0qhBBpKEX2FLQqAIKvaNZ xJCZhDNQ5QBSdaVNsD5om FNFsTQ0fhzylYZdtQWclV RIjdZO0GCTwwFIkR4WeYB PxQIfhUAPscac5YxHwNi9 vdGVyeTcyMFxwYXJkXHBs YWluXGZzMjAgUGxlYXNlI EKeZLDfh0YsT3gnlBMfNO CoDYLyz5GdFCN1gZ8en1y 0UZHbDZBsyXPcCNaDHuU7 ZLYlTDQncWItXvx1VIC1i XMnXGAuPMe4wO2eMYryq6 1up5KyDqiwDGZ4 [facility] b9judOOkDIDibWWvVcAv M YIjQHYgg9uvSJWwiKFcZu EwMzNcZnRuYmpcdWMxXGR mGrUjv0nam050oNPmj9vs WDYpQrQ0sZWrAWElD23pP FVKT146WOQfLCemj2sdu5 UxXPEruSHum9N9JSNNZOa gEGLIEDk9wGgyR37ew3H2 RwwgA3deFQWpFKKtX9LbX K8qGJLnTya3OKB7SNQ7RN YoTUGeC2HgTZ5yZBWvdSD pMWc2l2uxiAqqZFMpOHR5 o0ggLNmqlcXlJX4aio3rw Mw2w2ndwrKtZCWoROOjhY RBNNCyN7CabFyuZo1zkCs 2jHrpLkylHSF0Byf5OC3m an14rsy0iMpnFBKlgqprU aB3DAsbTVCgflavYEk2BV kwNPCtiND8NFZenIUqA5J qSROcRA3ayey7SLD2ZKqp BDAdEqT1ENSasQSiIOXxf FtyYFoma451TOM6XcRiTV 1lU4Tny7W2yV6arSZyMIX moQNhDyZkVIQdex8wsIRu QMmrw4RkFJE9qaH3mZYex YTcKJDhHZ95Koeig6HlYv ohPEZ0NJYqrxDde3Jza7i yGgCnubJgI4bcX5VtSVBx MDLtUIQkBrUyxqZey1Adp 5PusZOzkRq0m2psFCOsET IzzOarg3ceEMV2BAHrK3V 1dOWzb0xuMPtqHSUsvSN9 suN4QUNgmROtV3GbyV8tN RJsCK4wdvi5c9gbPSL3SO zaNCItEhC6xvV8FPMwjPB oTRIifHmqRGwwx124FCV9 ZhFzNCQtt1RnD8MqaAqfQ 70qaBfkJ72rNDWniKovoU 3krHwciP0yGaNuYgQsVLo xbFxwbGFpblxmMVxmczE2 MYamqgnmUWRdAElnC4rmI lPtFMKajIrdPYjkv9BtLV YnWZTeFSJnECnjZ8mhoR1 qzovnMMxpDCVsgFizm9lm TkUmmKP5AH5anvRfTNXrf CasqwF9xhKymWltvG2nyD 2rfXricR1bwWVvkYU4vyw sIGluIHNpdHUgaHlicmlk qSmckJpeuhufrL2uJFK7f AVqZZG6dBVcVXVhSYKtUL XlwL89yz3ytQWvwcRzG5A tQ1FkgIJscDoyNxafqXOy zNSnZm1miBHlPV5lQHRyn XJaB5ItIY9rUZXktnuaTH IgVGhlIHVzZSBvZiBvbmU di9NobW9dAAQaCVSlFT43 jhWcxhZ3aEUqOOHdokWdh GVzdHMgaXMgcmVndWxhdG DqPVUoGIIwPXHiDAy8qWC la9KwG4voaWMntiJmT5Wu gASyORRWLK2sAMaey3Ovb SLweXXfh7KeROKlZVNmvW 0jHMLbMD0bHDFgWRmtKTK talEsoh8qvoUgMCZsTUIl F8IskjddhHnevoOmGGSig k0urhBnNQF8WGIoZHCkhO piqYFspEIfAMBhelM3g4N zLMIao3PoZ9UgcDZkMYQz lXSnIZZ2n5TqjB8sIWhgm AUpQQGdHK8mvGAiKOUiBI NsZWFyZWQgYnkgdGhlIFV JSVPdu1LsZD9oREQakEvh JTFkfC7kn6UfWYXya46rO EZEQSkuIFRoZSBGREEgaG FzIGRldGVybWluZWQgdGh jjZFrlDYvJQNiWOQbNK8n PNJqnkHcmXEgp8ZuwAMsy hXsn5ChygFbLDWpYUU6Rq BccGFyXHBhciBBbGwgaW1 duH3du1GlgB2tLOdianZw dHEcOx4fiDKgPD7vQTVbh mFmZmluIGVtYmVkZGVkIH Izo9X1TN0zQZMdzh8rqkv xeKTrcU2yyABtagQpWD4r EW2kH8T2kLZdJDLsypBpb 3duYId3nCOpWQKsdNRfrI OpXosbGHZ4ETEzUMK9icJ svsQiHYThsIyzoHN6wYEk AOOwOMGcVKKuLB88Y5Yst 1TjH0ejAB29TZPuLUTgOA AmcnVqz7wzQVWbm2orDVQ tkZIaE0FeHCOqzCEafeej ZzFlLWF7AVDcYWW0oUMbW RUwI1XflWGhhWGkvS62BN 2mdBB4IF7cEHU3QUcveV2 aRuKJcE86rk0tyXA5v6Hw UR9eI2KfSVSrk9M5kpKkB MIeIP1deWQkFGRiQDKbbK lkYXRlZCBvbiBkZWNhbGN kUjqnXDN3rCZuaHSiOqXX IUS4aYJfGBCcc1YuECCrQ GFkilYifaYaOTAjRWC9dF HcVRLftMTho17zZ5x5RL0 pvTarKDNlaNXiJFEyj9Fi uZUrwPs6wJPePyJiRNmyO MNzBIkmbUk0mIS3DZ2xUY IhB9MyH2qlhCZwIGFjRJO osYGdza2ktVCpeW== [facility] h8cwyFLuFHLbpMJGJXSo M KYsPN8coPppeDq4kObzCU SzawS1mRGtYBqfp3xwQPQ 2r9sjfeLRObmhZUVwBY8q BYlxBYJhIK6aSpIxELWcN mYxXHBhcGVydzEyMjQwXH AefCQjaZT2ALUcFS2iqja nIQwrLMteUWKldhQ2UMBf qWIyE0ExUMXqPF9rxsymC MW2VVZQOdbrHu2vvRQqwG ANCntcZjFcZmNoYXJzZXQ kHWMkg6liibJWlwuuuFc5 KNs4MUMlMTWqxMOph6C6D Ftqe6yda6HeV2Xyo9VoNT n2oY9RUncaS09gj0P8Sxv 5YWFlBWg0WAgiJOEjBOCn Xay0WHb8Q3bgZUHrAYajH WNhKOnwgNSuDPc0EXznl1 QgqRQyRLy3YNkeNPDtN7X yP1VgZWgxRcOsUSnqXMKq PIRkAKtnWQSsN2NQLQKoL rU9OiX8NELzKEh1SXjoMc RGIXR2UIr5HoX9RGn1PTO zQY8zGVpehMIuSEqeFylg DRxdV477IZsaRDTqS0SpD 3QgXFxzZyBcXGlkIDUxMD UtZGgtWLQtO5TLYNVyZcN 1CmR0LQQhWSa1IZbkB2YS JGRjMEO1XQW5KyDaXsX3L Tb3CSQRZj1qYPG1SNB5TP deVVA1ZJZpXVpoxpvjEQi 0IDIgXFxzcyAzIFxcZmwg TQdzX43oyZGfRQRHAsuoz GFpblxlcGljTmVzdERvYz ZuWKkveBVhxCIpQK9RERy 0cmNoXGNmMVxmczIwIEEg VANCcXE6lrAnMQWqhph9s SmeDcdnxVD9WXGjEPWrQU zbDHZeEYn0YITzkGlzJRC nv2DaK9H8OXDqPPfdf2aa JGCbGVxgu9EdXWbZEIJRW S5YQH7uwWT6DGhIYZHCC7 jGzDGzYOIpR1wejBP7q2k lxVOqm1w1EMhnGSO2xMDj u6AkfYxdOpqaeJB4UBjvH jbxbT6icUOXCBWKHtvYIb qtlnToUI3QJGRNJV2AdMN gHBPkV3gzxTT2f8xeyEPr p6w3FQptNSB9pXwtrNKcr lxsdHJjaFxmczIwICBccH KvsPXjzVdjHzvbtHN0YLl iThazbM4svULMVTAEGbgC ZsphuvBvUP4ONWOFCbPBY M84HFK5HPD9vAV6Xf62WK QwKBGnxEUlFAnmI772c7W dtflih2wlmAWgTAhtLmgw kSAcviH9FLsNUPBOHGeJX pFkGE8wXUfVW9SENmV2WD H4JCE8nJY9Ue05QAHaXEA bqUUyMTsuO970CKCzNOba KXs7tdWxHRCaJuBtBRYox KsqTJMaP6UxmwBjKEholt 46XNH9e0lvsSYtVJvfSqd haOAjymQ6OZsNLTUHLWwB VfMnDF3xFOdEI5SYVNvEZ ldhWCvpSaR5G5fnqNspGj bsltUcxCAlJlBJnT9jnsQ vyTygOqncqIP2RPmbEhbg wE2ohKNXIZUXHrmLQxlhl uMrJH5KTZVCFU0OvHErJL YjRPbwcTV2p2wwyCRko5n 9JUhxIMB2oDhabOVeoedm cAEemYvnqgDuQN8cXGQrb iANClxiXGNmMiBNYXRlcm vrsXBgROStrYEwCCP5MXR iJGKzNZBqLGJtlL5LicPh IGFuZCAxIENlbGwgQmxvY 2yqdtiykPOdUO7DTSMkcs ANClxmMlxmczIyXHBhciA DZsguNKZxQHTdkBAWg8Me PZBJFiu5BO7PSSEqMPYul SSKJRF5ZX8nBPwwBGYvR1 UuJ4CiytH0x6ufrIjqz1A cbXNkHM8rpMIiPF4SFOJb crUfTErarBsyvM2tJOc9 [facility] Pathologist Interpretation Location [facility], [address] [place] [id number]; CLIA: [id number]; Joint Commission: [id number]; CAP: [id number] [facility] Pathology report final diagnosis Narrative q2oqvJIoYHUnlAUcXFOfQ OfimmUgUTXiuSIbB6Pthb qnIHvwOM3wDG5wlDendHY lqUJyJGSlVbJll9sym641 dVJil5rfVVFFXArfOVIDO Nx8iTwgC05jw1U7VtfeJ5 tjIGA2NHfxdnLxdyn5SZM yjOE5ADa7EODpcFBniiGc UgNyVZEytCRnuFK0RQWbB A0vvmxlBIsnIAufPBWeqr Q6AUGhbYMfW3VrMNHfCX8 gauloTUI9YNxmLFOnSFT8 QzSgUDDfx1Xlcur4MjRya GFyZFxwbGFpblxmczIwXG NmMSBBICAtIFBsZXVyYWw oL5P7zTT8EXWUhIrcaBBt ECApXSapYjv8rUDzBMK9n N2na0l7DekuZyIiNLQeqZ KkBV8GRP3ZZQtDNzOOTMZ DRUxMUyBJREVOVElGSUVE CtfdJNQeIcPWV2NHHeOpT 5XYJQPWFYBVX8CNMgenSF RmXR1jwAZhuEK6iR7oEMA yZXNlbnQuIFxwYXJ9 [facility] CV EPIPHANY [facility] Atypical Lymphocytes Manual 1 [facility] Basophils Manual 1 [facility] Eosinophils Manual 3 High 0 - 1 [facility] Interpretation and review of laboratory results Abnormal [facility] Lymphocytes Manual 7 [facility] Monocytes Manual 15 [facility] Neutrophils Manual 75 [facility] No Panel InformationOrdered By: Marianna Francois on 04-14-2025 [facility] Work Phone: No Panel InformationOrdered By: Danyel Platt on 04-14-2025 Case Report [facility] Work Phone: Case Screening Location [facility], [address] [place] [id number]; CLIA: [id number]; Joint Commission: HCO [id number]; CAP: [phone] [facility] Work Phone: Comment g2eteXEiXTKgaXSbIVJs M LxafzChAESkxPTiM7Vhyq euOUtcCP5jDI6irUkxhUS vrSXsTUJdPlWcf9bxr175 aCQzt5imCKTGPYwnIFNQY Kh9mAusF71qd5Q7UknhR6 5enTPsKFI6OJZfDPOcuDK fNJDvAKB3QROirJGbY8ua DYIzQE8gqnytLVfjQYizU TQnbPW2SNYmwOJxL9XrYD EjVFfvPHUoklz1PbBkCv5 vdGVyeTcyMFxwYXJkXHBs RIqyLTFxOjAqIY2vlY6yn VphtH5otKProJR5aanzUT dibGgiM25kqXTiaVJ8KXR KByUnmgQbJ2KeflD4fN1b biBoaWdobGlnaHQgbWVzb 2GbTZanEVzgI5ZvfGDmHW BCRVIgRVAgNCwgVFRGLTE jITZTZFkvKG1oUHAVEzWs UJRlZI8eQ6S9aIJgUnFqH 7WeFeRidKpiqGcbQ7e6it IwkZ6xpb12qiXtDCXuy4F fMEhqon9syTLixB== [facility] Work Phone: Disclaimer i5dudFWkBYMifZRsLmQa M KHnQKWql2juZMAwkEKqTs EwMzNcZnRuYmpcdWMxXGR iDcDhj7ffx420pTJzz0vk XQQfBdI6gQWtHGWpR23oK FAUW588VFXcLHjvy8nig6 DyYHFlmKGsf1R9DCTQXIn yPIOWJDl2pOheC71sj8W9 AmohS6taQYTsEUPiK1GvM N7gSKCuOod3QVT0KVX7RW AjNPCfV1EgAI8tQAAkqCG qAHa4o6toxCajOKEvQWJ1 x3jrPVqsqpCjWY4miw9lm Rd5c9muyfKlSTDoCKBwmT JTXUQvK1JweSqfKw6jgQa 7oOzdZumiDDB2Vgf2MS1o ou85hdk8xGuwZMPwodhtV zF6QTbwQFAunvuaTHp8JF trTCZavFJ2FOMsvDInI0M tOKUjYE1sxfj3ALL5SHvm MQSeZdU5SUWkxFRzOWOpc UpmHOujg512FDZ3YsEmWB 8oR7Jxz5D0hX9zlLCyZMJ imPNpGnShRJRzkb1rvDHf PRify0MgHYV2btS8zCZyo TJwKJAfOT45Biefg2RnBz zsOFP8NIDuerYnj3Qhj5m dCkUlskXsJ4tvI0HtTQDc ZGSbOAOgJnOirlXmg3Cvo 5IahOAgmMn4r6ecCOLaKA OhiWmjs6zeNMG1HBLkO8T 4xDRhg5ckKPjsAWXpvBU2 ckA9OHHqfZQrS3WtjX3qA FFaCJ0bbqw4d5eyHGB2EF kfANBsDeD1icH8VZNffBQ fMGUdaFjbTPekt309LEU7 CmIcAKTco9YcU7CegNvyU 33fxXupH99lWQBwdOmecM 7yuRyccR0sYaYrMyLyPDz xbFxwbGFpblxmMVxmczE2 QYvkmrisNIZoSPgxJ8wtG eXbAPIecEoiPNvjk8YjDI NyYYPcIMPlAOvcR9pctU9 ewstrJJuoVESsjGwsg3li ZtZecBZ3FD2avxVdVGHvr BhzilX0diBcoMnjmY7vtK 5ozNtbuB6wiVSeiFI3yee sIGluIHNpdHUgaHlicmlk gJilaYhxkwrgpF7wJGE7r FKeKPC6nVFgXIHjSCLfSV XtpZ83og1bsKFkkwWoU7D yY5HbzHMctBaeMkvllLZb cCBeTe5ygVRpIG0dYZTan LXyY1TfNI2eNKMetlyfWH IgVGhlIHVzZSBvZiBvbmU jr3QgeD3tHHVmJHRyLY01 flKwpkE4qNLbMCCupbIff GVzdHMgaXMgcmVndWxhdG UaYZOeYLZuLGRfQTj3eJJ jh4PaN5wqjSTxwjKoX3Sm cYGeFVSVGD9fYLlfi2Ego VLiqRTpd3ZxTZRqPHDffG 1mBDIpBO1yLYTeTRqnRGK hjcWyib5vrqDqSPHlTQKe H2XccmdcnYuklfQdWJTsl t5ywiBlPLP6MEQtGYPvzU iacBKulUTfDAWbvaY0v6V dKDQlx9CsL6QymXUiAZIz oZTqDDD4b4LzqJ6tHVjob OKuGNAwEF4fwJJdQXZiDJ NsZWFyZWQgYnkgdGhlIFV SGJYln2AbRQ6uFRDhvMiw DWLitH0al7WtJHJsd41oG EZEQSkuIFRoZSBGREEgaG FzIGRldGVybWluZWQgdGh ncPAkvLFvUCXrCFRdAY8q GKQrukDbvNGlz8YhpYLnj aHjp4PwejHtSYFiFCD5Jw BccGFyXHBhciBBbGwgaW1 uvY4zw8UpuD1fPYwuynBt hBFcLf1lyNNxNC3jNNPru mFmZmluIGVtYmVkZGVkIH Uqh7E5DK0sUOBesi9pnsp ioAVvuS4gxXXtlcMmGG8t OV6oK5L3lYFhAJEkyiQqq 5qtSBg3iATmVNUgfZDaqQ WqZteqMVB7QOVsWPQ8xmQ rzsKlVAXsgEfuePV3vKCv MMCoAKWvGFNaGP55B9Ens 0GlT4loTV73KJCrNHRoRP TjnfHrp8qgLNGxn1hoUUI stSNlV1CyJWEorKCvmewc WnEiWRD7UTWpFAO1dRLfP RUmG4PcrXYagFAeuV28PO 5tlAA2SI0wWVQ0RGxezU7 yNeHAeI11lu5biOS2j5Wz ZY8sG0AzFNOpc6G8iyXgP QBuYE4omITvANFbBOMxdC lkYXRlZCBvbiBkZWNhbGN xOhsbVEJ7pABwiUPyUhYJ KAT4sAPzMPOue2MdEOTrS KMsqmCesmGwWSNmQWE6bV HkJJWewYScw70zT2z2SU7 cjRuaXIOdiMVlAYKzz3Sb xNSklYu4vCDvClSzOGxpH VMcFNildSt9dWI2ZQ2kZQ LbR2QgQ0brsZLjLFSyCJX fkWOhvx2woDAuqL== [facility] [employer] Work Phone: Gross Description z6pafFUdKNCmzYJKBWIv M YIbRJ4xjTrrjDd9nOraBE SymvF3dNAuCBamt6ijZKR 6j7ohllOXUsfzUEHpYT6e HBywRLMtES8aJmCoFESxB mYxXHBhcGVydzEyMjQwXH LwlKEddGC5UCYhAU5khby aDKlnIGovYQTgzvQ4DLQc pDJlL2LqYUWdCY4hmdmaI KV8FUPBOkmfFd2nfEUtmD ANCntcZjFcZmNoYXJzZXQ wAZIct7ufipLXomllwHm4 FQv4YDSnIJAxaRYdz9Q8U Kqyv1gra1EnA1Xbl6CyOO r5eP2HPxtsL67br7E5Lra 6BGEkVWh2QYeaMJQbGLTg Uua8JDk3E6crTHZwJQlyN IHcSSwioOWvCJu6UIfuo6 LjvRMiWUb3LVwqLQGoL5R wT8VaETtvAqBhJNddRYPk TVWwOAvoIBHkK7RURHGrJ nA1HTo9UQOgRFa3XPbgDb OANTF9KOR6EsU6KVj8RPN iGB8lHCoasUAkBIocBqrd MRyeL128RGmwPGLlL1BpA 3QgXFxzZyBcXGlkIDUxMD WvLZznWOXbK3LRARNtMmC 8ZUh9FHSrLZw0ZVrmQ3QI PJEkDHT2XIN5OfG4SiN6K Bj6CKBCUb3eNRL7Box5Is v4HZN3OTYjQIbjkufiSNm 0IDIgXFxzcyAzIFxcZmwg XFofL13taREbZIUWHlpqc GFpblxlcGljTmVzdERvYz JgBZhklUUsbRNqCB2BRKf 0cmNoXGNmMVxmczIwIEEg XBDVhZO9kuUtHZXjzbq0x BsrSPSqvMtvL3CmBRAdER BhciANCjEwMDAgbUwgXHB in6VvH1I6FIOoQJqjy1uz ZSLgZPled1BhPUvPBTEBH F9MCW8rmKT6EYlDBJRBF2 aQnCIaLUAfB2yapOQ9b2g eaVQou0q2QUvoSCY3kWRk m5ZwrUzxBogwvGV8FZurF xbrkG7ljIHVYXNZVypPVt fdybPiZA9KGPVQCU5QsQD jUZNgW5nnaDH2j2hhuGJt s5u1EOhhVST3iSlzzBBhl lxsdHJjaFxmczIwICBccH EquJLltMdwMctguBC5CLv wCvdfwT2nsFJRCOFVGqcQ RshkalUeQJ0UILNYCwCZW B16WKU7VDW5pQQ9Bs65WA EgXVGqvJSzVZtuL661lDE wwN64b1cqxNRsANzhAvhc zSIlwlV9FNqNICWTRUrSF lNwDB6wMYfFF9BYCgN5OR H9LWN3oEK7Lh90WTPeXUD lpEGnDXljC433ZDBrJOux BQv6qdNjWKZwAxPgDUWyg LluGLPxR7OmiqXiPYvirb 72UFQ9y8lvlXJpGAbyRxj akFTcfdD4ALyJIBHTFCfX MvHyRA9hAFkWQ1ATPUiNB jrgJFqvFrR5Z6mmkMlwHs rzocMymOBmCeOIjF5aytS voIfkYvnqmKG2RNriNrbk uV4vfWXAJXEQKxhONhddi jDmXP6PMCXRJE2NpRDqWW WiUAlloYL1t6ufcOGtl3p 4BOboTCW3aXqjzMUwivrt sOQtfAcfqhIzTS3gTRCyo iANClxiXGNmMiBNYXRlcm ljcQEtTUMroPPrRJQ1YTT pLJQrALGaGXUlsW8WhvVp IGFuZCAxIENlbGwgQmxvY 1bohcfcmHJgWO4VCKEfwz ANClxmMlxmczIyXHBhciA ROgcjMTWzVZGjvVKLk5We MNMDVwz6ZF0ZYMLrXHBdp BMTBZS5YQ4sNOriHUHmY1 QkC2SydzH2w9gvaFscp0D iuEQgPL5ylBXmEG1KFYMr aiApXTrbtNyjkM1mXZe0 [facility] Phone: Pathologist Interpretation Location [facility], [address] [place] [address]; CLIA: [id number]; Joint Commission: [id number]; CAP: [id number] [facility] Phone: Pathology report final diagnosis Narrative z2ayqPIvNFYpiTVpDOVaN AmvlxVsHFSfkBEmU5Gpce hcLFbtSV4aEN3dfNmfmMP luRWyXXHtVzZys3dxb584 mSVbl7kmYXULXMtfOIYDU Eq5oHcnB19ym6E4HmphO5 nbXTO0DHainkSvkac9WZT iqII4CDw5XAWdcTDkrnAu PrPtZNFwbKOhlOY9FSRpT U9poxghFAxqOUhmSGWxap M5KHHplAMuJ4ChPUAzAI4 qxminGXN5XAiyUGIzEXH0 YdIuVONat6Ujszz2KmTox GFyZFxwbGFpblxmczIwXG NmMSBBICAtIFBsZXVyYWw jG2E7lDO2WEACEAJ4GD2u Qd2seQPLhHLyAMfiX6l9k 5brA4w3BXQmWIVtDCgkWI XyMd0dGOVWEWfEDD5EFFU HBSlQKQiEJG6BJBAUEWCx XHBhclxwYXJ9 [employer] Work Phone: [employer] Work Phone: No Panel InformationOrdered By: Ronal Maurice on 04-14-2025 P [place] 44 degrees [employer] Work Phone: TX Interval 134 ms [facility] Work Phone: QRS [place] -35 degrees [employer] Work Phone: QRSD Interval [address] [facility] [address] Phone: QT Interval 390 ms [employer] Work Phone: QTC Interval 450 ms [employer] Work Phone: T Wave [place] 78 degrees [employer] Work Phone: [employer] Work Phone: Nursing Noteon 08-06-2025 Nursing Note Normal [facility] Progress Noteon 04-14-2025 Progress Note [facility] Progress Note [facility] Progress [facility] Progress Note [facility] US GUIDED THORACENTESISon US GUIDED THORACENTESIS Normal [facility] Vital signsOrdered By: Jake Maurice on 04-14-2025 Heart rate 80 /min bpm [facility] [employer] Phone: XR Chest Single viewon 04-14 [facility] XR Chest Single viewOrdered By: Anthony Christian on 04-14-2025 [facility] [employer] Phone: [phone] 04-13-2025 [id number] Normal [facility] BLOOD GAS ARTERIALon 025 AMOUNT OF OXYGEN 2 lpm Normal [facility] Comment on above: Order Comment: Pleas e draw tomorrow AM after using BiPAP. Thank you! Performed By: #### L [id number] ####Estimator And Drafter Supervisor: UNA ARCE ([phone])[facility] ([address] Base excess Calc (Bld) [Moles/Vol] 11.7 mmol/L High -3.0-3.0 [facility] Comment on above: Order Comment: Pleas e draw tomorrow AM after using BiPAP. Thank you! Performed By: #### L [id number] ####Estimator And Drafter Supervisor: UNA ARCE ([phone])[facility] ([facility])[address] [place] [address] CO2 [Moles/Vol] 39.9 mmol/L High 22.0-28.0 [facility] Comment on above: Order Comment: Pleas e draw tomorrow AM after using BiPAP. Thank you! Performed By: #### L [id number] ####Estimator And Drafter Supervisor: UNA [phone])[facility] [place] ([facility])[address] HCO3 (Bld) [Moles/Vol] 38.1 mmol/L High 21.0-27.0 [facility] Comment on above: Order Comment: Pleas e draw tomorrow AM after using BiPAP. Thank you! Performed By: #### L [id number] ####Estimator And Drafter Supervisor: UNA STAUFFERMELANIE ([phone])[facility] ([facility])[address] Hemoglobin (Bld) [Mass/Vol] 11.3 g/dL Low Screen only [facility] Comment on above: Order Comment: Pleas e draw tomorrow AM after using BiPAP. Thank you! Performed By: #### L [id number] ####Estimator And Drafter Supervisor: UNA STAUFFERMELANIE ([phone])[facility] ([facility])[address] [place] [address] OXYGEN SATURATION (%) IN ARTERIAL BLOOD 95.1 % Low 97.0-99.0 [facility] Comment on above: Order Comment: Pleas e draw tomorrow AM after using BiPAP. Thank you! Performed By: #### L [id number] ####Estimator And Drafter Supervisor: UNA ARCE ([phone])[facility] ([facility])[address] [place] [address] PCO2 ARTERIAL 59.2 mm Hg High 35.0-48.0 [facility] Comment on above: Order Comment: Pleas e draw tomorrow AM after using BiPAP. Thank you! Performed By: #### L [id number] ####Estimator And Drafter Supervisor: UNA STAUFFERMELANIE ([phone])[facility] ([facility])[address] PH ARTERIAL 7.426 Normal 7.350-7.450 [facility] Comment on above: Order Comment: Pleas e draw tomorrow AM after using BiPAP. Thank you! Performed By: #### L [id number] ####Estimator And Drafter Supervisor: UNA ARCE ([phone])[facility] ([facility])[address] PO2 ARTERIAL 79.2 mm Hg Low 83.0-108.0 [facility] Comment on above: Order Comment: Pleas e draw tomorrow AM after using BiPAP. Thank you! Performed By: #### L [id number] ####Estimator And Drafter Supervisor: UNA ARCE ([phone])[facility] ([facility])[address] SOURCE OF OXYGEN Nasal Cannula (LPM) Normal [facility] Comment on above: Order Comment: Pleas e draw tomorrow AM after using BiPAP. Thank you! Performed By: #### L [id number] ####Estimator And Drafter Supervisor: UNA ARCE ([phone])[facility] ([facility])[address] Bacteria identified Aer cx N om (Unsp spec)on 04-13-2025 Gram Stain Result Rare Polymorphonuclear leukocytes per low power field [facility] Gram Stain Result No organisms seen [facility] Bacteria identified Aer cx N om (Unsp spec)Ordered By: Bianca Daigle on 04-13-2025 Gram Stain Result Moderate Polymorphonuclear leukocytes per low power field [facility] Gram Stain Result No organisms seen [facility] CBC W Auto Differential pane l (Bld)on 04-13-2025 Erythrocyte distribution width (RBC) [Ratio] 25 % High 11.5 - 15.0 % [facility] Hematocrit (Bld) [Volume fraction] 28.2 % Low 40.0 - 52.0 % [facility] Hemoglobin (Bld) [Mass/Vol] 7.8 g/dL Low 13.0 - 18.0 g/dL [facility] Interpretation and review of laboratory results Abnormal [facility] MCH (RBC) [Entitic mass] 23.2 pg Low 26. 0 - 34.0 pg [facility] MCHC (RBC) [Mass/Vol] 27.7 % Low 30.5 - 36.0 % [facility] MCV (RBC) [Entitic vol] 83.9 fL 77.0 - 99.0 fL [facility] Platelet mean volume (Bld) [Entitic vol] 9.1 fL 9.0 - 12.7 fL [facility] Platelets (Bld) [#/Vol] 276 10*3/uL 140 - 440 10*3/uL [facility] RBC (Bld) [#/Vol] 3.36 10*6/uL Low 4.40 - 5.9 0 10*6/uL [facility] WBC (Bld) [#/Vol] 12.7 10*3/uL High 3.6 - 10.7 10*3/uL [facility] CBC WITH AUTO DIFFERENTIALon 04-13-2025 Erythrocyte distribution width (RBC) [Ratio] 25.0 % High 11.5-15.0 [facility] Comment on above: Performed By: #### L [id number], [id number] ####Estimator And Drafter Supervisor: UNA ARCE ([phone])[facility] ([facility])[address] [place] [address] Hematocrit (Bld) [Volume fraction] 28.2 % Low 40.0-52.0 [facility] Comment on above: Performed By: #### L [id number], [id number] ####Estimator And Drafter Supervisor: UNA ARCE ([phone])[facility] ([facility])[address] [place] [address] Hemoglobin (Bld) [Mass/Vol] 7.8 g/dL Low 13.0-18.0 [facility] Comment on above: Performed By: #### L [id number], [id number] ####Estimator And Drafter Supervisor: UNA ARCE ([phone])[facility] ([facility])[address] [place] [address] MCH (RBC) [Entitic mass] 23.2 pg Low 26.0-34.0 [facility] Comment on above: Performed By: #### L [id number], [id number] ####Estimator And Drafter Supervisor: UNA ARCE ([phone])[facility] ([facility])[address] [place] [address] MCHC 27.7 % Low 30.5-36.0 [facility] Comment on above: Performed By: #### L [id number], [id number] ####Estimator And Drafter Supervisor: UNA ARCE ([phone])[facility] [place] ([facility])[address] MCV (RBC) [Entitic vol] 83.9 fL Normal 77.0-99.0 [facility] Comment on above: Performed By: #### L [id number], [id number] ####Estimator And Drafter Supervisor: UNA ARCE ([phone])[facility] [place] ([facility])[address] Platelet mean volume (Bld) [Entitic vol] 9.1 fL Normal 9.0-12.7 [facility] Comment on above: Performed By: #### L [id number], [id number] ####Estimator And Drafter Supervisor: UNA ARCE ([phone])[facility] [place] ([facility])[address] [place] [address] [place] Platelets (Bld) [#/Vol] 276 10*3/uL Normal 140-440 [facility] Comment on above: Performed By: #### L [id number], [id number] ####Estimator And Drafter Supervisor: UNA ARCE ([phone])[facility] [place] ([facility])[address] RBC (Bld) [#/Vol] 3.36 10*6/uL Low 4.40-5.90 [facility] Comment on above: Performed By: #### L [id number], [id number] ####Estimator And Drafter Supervisor: UNA ARCE ([phone])[facility] [place] ([facility])[address] [place] [address] [place] WBC (Bld) [#/Vol] 12.7 10*3/uL High 3.6-10.7 [facility] Comment on above: Performed By: #### L [id number], [id number] ####Estimator And Drafter Supervisor: UNA ARCE ([phone])[facility] [place] ([facility])[address] COMPREHENSIVE METABOLIC PANE Anant 04-13-2025 Albumin [Mass/Vol] 2.2 g/dL Low 3.4-4.8 [facility] Comment on above: Performed By: #### L AB17, [id number], [id number] ####Estimator And Drafter Supervisor: UNA ARCE ([phone])[facility] [place] ([facility])[address] ALP [Catalytic activity/Vol] 52 U/L Normal 40-150 [facility] Comment on above: Performed By: #### L AB17, [id number], [id number] ####Estimator And Drafter Supervisor: UNA ARCE ([phone])[facility] [place] ([facility])[address] ALT [Catalytic activity/Vol] U/L Normal <40 [facility] Comment on above: Performed By: #### L AB17, [id number], [id number] ####Estimator And Drafter Supervisor: UNA ARCE ([phone])[facility] [place] ([facility])[address] Anion gap [Moles/Vol] 10 mmol/L Normal 3-13 [facility] Comment on above: Performed By: #### L AB17, [id number], [id number] ####Estimator And Drafter Supervisor: UNA ARCE ([phone])[facility] ([facility])[address] AST [Catalytic activity/Vol] 25 U/L Normal <34 [facility] Comment on above: Performed By: #### L AB17, [id number], [id number] ####Estimator And Drafter Supervisor: UNA ARCE ([phone])[facility] [place] ([facility])[address] Bilirubin [Mass/Vol] 0.6 mg/dL Normal <1.2 [facility] Comment on above: Performed By: #### L AB17, [id number], [id number] ####Estimator And Drafter Supervisor: UNA ARCE ([phone])[facility] [place] ([facility])[address] Calcium [Mass/Vol] 8.1 mg/dL Low 8.8-10.0 [facility] Comment on above: Performed By: #### L AB17, [id number], [id number] ####Estimator And Drafter Supervisor: UNA ARCE ([phone])[facility] [place] ([facility])[address] Chloride [Moles/Vol] 93 mmol/L Low 98-107 [facility] Comment on above: Performed By: #### L AB17, [id number], [id number] ####Estimator And Drafter Supervisor: UNA ARCE ([phone])[facility] [place] ([facility])[address] CO2 [Moles/Vol] 36 mmol/L High 23-31 [facility] Comment on above: Performed By: #### Gilbert AB17, [id number], [id number] ####Estimator And Drafter Supervisor: UNA ARCE ([phone])[facility] [place] ([facility])[address] Creatinine [Mass/Vol] 1.46 mg/dL High 0.72-1.25 [facility] Comment on above: Performed By: #### L AB17, [id number], [id number] ####Estimator And Drafter Supervisor: UNA ARCE ([phone])[facility] [place] ([facility])[address] [place] [address] [place] GLOMERULAR FILTRATION RATE ML/MIN/1.73 SQ M.PREDICTED 45.7 mL/min/1.73m*2 Low >60.0 [facility] Comment on above: Result Comment: Calc ulation based on the Chronic Kidney Disease Epidemiology Collaboration (CKD-EPI) equation refit without adjustment for race Performed By: #### L AB17, [id number], [id number] ####Estimator And Drafter Supervisor: UNA ARCE ([phone])[facility] [place] ([facility])[address] [place] [address] [place] Glucose [Mass/Vol] 94 mg/dL Normal 82-115 [facility] Comment on above: Performed By: #### L AB17, [id number], [id number] ####Estimator And Drafter Supervisor: UNA ARCE ([phone])[facility]ENTERMar[facility] ([facility])[address] Potassium [Moles/Vol] 3.4 mmol/L Low 3.5-5.1 [facility] Comment on above: Result Comment: [facility] potassium values may be up to 0.5 mmol/L lower than serum values. Performed By: #### L AB17, [id number], [id number] ####Estimator And Drafter Supervisor: UNA ARCE ([phone])[facility] ([facility])[address] Protein [Mass/Vol] 5.8 g/dL Low 6.4-8.3 [facility] Comment on above: Performed By: #### L AB17, [id number], [id number] ####Estimator And Drafter Supervisor: UNA ARCE ([phone])[facility] ([facility])[address] Sodium [Moles/Vol] 139 mmol/L Normal 136-145 [facility] Comment on above: Performed By: #### L AB17, [id number], [id number] ####Estimator And Drafter Supervisor: UNA ARCE ([phone])[facility] ([facility])[address] Urea nitrogen [Mass/Vol] 37 mg/dL High 9-23 [facility] Comment on above: Performed By: #### L AB17, [id number], [id number] ####Estimator And Drafter Supervisor: UNA ARCE ([phone])[facility] ([facility])[address] Comprehensive metabolic 1998 panelon 04-13-2025 Albumin [Mass/Vol] 2.2 g/dL Low 3.4 - 4.8 g/dL [facility] ALP [Catalytic activity/Vol] 52 U/L 40 - 150 U/L [facility] ALT [Catalytic activity/Vol] U/L NINF - 40 U/L [facility] Anion gap [Moles/Vol] 10 mmol/L 3 - 13 mmol/L [facility] AST [Catalytic activity/Vol] 25 U/L NINF - 34 U/L [facility] Bilirubin [Mass/Vol] 0.6 mg/dL NINF - 1.2 mg/dL [facility] Calcium [Mass/Vol] 8.1 mg/dL Low 8.8 - 10. 0 mg/dL [facility] Chloride [Moles/Vol] 93 mmol/L Low 98 - 10 7 mmol/L [facility] CO2 [Moles/Vol] 36 mmol/L High 23 - 31 mmol/L [facility] Creatinine [Mass/Vol] 1.46 mg/dL High 0.72 - 1.25 mg/dL [facility] GFR/1.73 sq M.predicted (S/P/Bld) [Vol rate/Area] 45.7 mL/min Low - PINF [facility] Glucose [Mass/Vol] 94 mg/dL 82 - 115 mg/dL [facility] Interpretation and review of laboratory results Abnormal [facility] Potassium [Moles/Vol] 3.4 mmol/L Low 3.5 - 5.1 mmol/L [facility] Protein [Mass/Vol] 5.8 g/dL Low 6.4 - 8.3 g/dL [facility] Sodium [Moles/Vol] 139 mmol/L 136 - 145 mmol/L [facility] Urea nitrogen [Mass/Vol] 37 mg/dL High 9 - 23 mg/d L [facility] Laboratory - Chemistry and C hemistry - challengeon 04-13-2025 Base excess Calc (Bld) [Moles/Vol] 11.7 mmol/L High -3.0 - 3.0 mmol/L [facility] CO2 (Bld) [Partial pressure] 59.2 mm[Hg] High [facility] CO2 [Moles/Vol] 39.9 mmol/L High 22.0 - 28.0 mmol/L [facility] HCO3 (Bld) [Moles/Vol] 38.1 mmol/L High 21.0 - 27.0 mmol/L [facility] Oxygen (Bld) [Partial pressure] 79.2 mm[Hg] Low [facility] pH (Bld) 7.426 [pH] 7.350 - 7.450 [facility] Magnesium [Mass/Vol] 1.9 mg/dL 1.6 - 2 .6 mg/dL [facility] Laboratory - Hematology and Cell countson 04-13-2025 Hemoglobin (Bld) [Mass/Vol] 11.3 g/dL Low 13.5 - 17.5 g/dl [facility] Anisocytosis Ql (Bld) Moderate Abnormal (none) [facility] Eosinophils (Bld) [#/Vol] 0.3 10*3/uL 0.0 - 0.5 10*3/uL [facility] Eosinophils/100 WBC (Bld) 2 % 0 - 6 % [facility] Hypochromia Ql (Bld) Slight Abnormal (none) [facility] Lymphocytes (Bld) [#/Vol] 1.9 10*3/uL 1.0 - 4.3 10*3/uL [facility] Lymphocytes/100 WBC (Bld) 15 % 15 - 45 % [facility] Monocytes (Bld) [#/Vol] 0.9 10*3/uL 0.0 - 0.9 10*3/uL [facility] Monocytes/100 WBC (Bld) 7 % 5 - 13 % [facility] Myelocytes (Bld) [#/Vol] 0.1 10*3/uL High SELENE F - 0.0 10*3/uL [facility] Myelocytes/100 WBC (Bld) 1 % High NINF - 0 % [facility] Neutrophils (Bld) [#/Vol] 9.7 10*3/uL High 1.8 - 7.5 10*3/uL [facility] Poikilocytosis LM Ql (Bld) Slight Abnormal (none) [facility] RBC morphology finding Nom (Bld) abnormal [facility] Segmented neutrophils/100 WBC (Bld) 76 % 38 - 82 % [facility] Stomatocytes LM Ql (Bld) Slight Abnormal (none) [facility] Laboratory - Microbiology an d Antimicrobial susceptibilityon 04-13-2025 Bacteria identified Aer cx Nom (Unsp spec) No growth at 4 days [facility] Laboratory - Microbiology an d Antimicrobial susceptibilityOrdered By: Bianca Daigle on 04-13-2025 Bacteria identified Aer cx Nom (Unsp spec) No growth at 4 days [facility] MAGNESIUMon 04-13-2025 Magnesium [Mass/Vol] 1.9 mg/dL Normal 1.6-2.6 [facility] Comment on above: Result Comment: ORDE R COMMENTS:Higher values can be expected in females during menses. Performed By: #### L AB17, [id number], [id number] ####Estimator And Drafter Supervisor: UNA ARCE ([phone])[facility] [place] ([facility])[address] MANUAL DIFFERENTIAL (CELLAVI BANDAR)on 04-13-2025 ANISOCYTOSIS PRESENCE IN BLOOD BY LIGHT MICROSCOPY Moderate Abnormal (none) [facility] Comment on above: Performed By: #### L [id number], [id number] ####Estimator And Drafter Supervisor: UNA ARCE ([phone])[facility] [place] ([facility])[address] BAND NEUTROPHILS TOTAL PER COUNTED LEUKOCYTES BY MANUAL COUNT Normal [facility] Comment on above: Performed By: #### L [id number], [id number] ####Estimator And Drafter Supervisor: UNA ARCE ([phone])[facility] [place] ([facility])[address] BASOPHILS TOTAL PER COUNTED LEUKOCYTES BY MANUAL COUNT Normal [facility] Comment on above: Performed By: #### L [id number], [id number] ####Estimator And Drafter Supervisor: UNA ARCE ([phone])[facility] [place] ([facility])[address] BLASTS TOTAL PER COUNTED LEUKOCYTES BY MANUAL COUNT Normal [facility] Comment on above: Performed By: #### L [id number], [id number] ####Estimator And Drafter Supervisor: UNA ARCE ([phone])[facility] [place] ([facility])[address] [place] [address] [place] EOSINOPHILS (10*3/UL) IN BLOOD-CELLAVISION 0.3 10*3/uL Normal 0.0-0.5 [facility] Comment on above: Performed By: #### L [id number], [id number] ####Estimator And Drafter Supervisor: UNA ARCE ([phone])[facility] [place] ([facility])[address] [place] [address] [place] EOSINOPHILS TOTAL PER COUNTED LEUKOCYTES BY MANUAL COUNT 2 High 0-1 [facility] Comment on above: Performed By: #### L [id number], [id number] ####Estimator And Drafter Supervisor: UNA ARCE ([phone])[facility] [place] ([facility])[address] [place] [address] [place] EOSINOPHILS/100 LEUKOCYTES IN BLOOD-CELLAVISION 2 % Normal 0-6 [facility] Comment on above: Performed By: #### L [id number], [id number] ####Estimator And Drafter Supervisor: UNA MOHRCER ([phone])[facility] [place] ([facility])[address] [place] [address] [place] HYPOCHROMIA (PRESENCE) IN BLOOD BY LIGHT MICROSCOPY Slight Abnormal (none) [facility] Comment on above: Performed By: #### L [id number], [id number] ####Estimator And Drafter Supervisor: UNA ARCE ([phone])[facility] ([facility])[address] [place] [address] [place] LYMPHOCYTES (10*3/UL) IN BLOOD-CELLAVISION 1.9 10*3/uL Normal 1.0-4.3 [facility] Comment on above: Performed By: #### L [id number], [id number] ####Estimator And Drafter Supervisor: UNA ARCE ([phone])[facility] [place] ([facility])[address] [place] [address] [place] LYMPHOCYTES TOTAL PER COUNTED LEUKOCYTES BY MANUAL COUNT 15 Normal [facility] Comment on above: Performed By: #### L [id number], [id number] ####Estimator And Drafter Supervisor: UNA ARCE ([phone])[facility] [place] ([facility])[address] [place] [address] [place] LYMPHOCYTES/100 LEUKOCYTES IN BLOOD-CELLAVISION 15 % Normal 15-45 [facility] Comment on above: Performed By: #### L [id number], [id number] ####Estimator And Drafter Supervisor: UNA ARCE ([phone])[facility] [place] ([facility])[address] [place] [address] [place] METAMYELOCYTES TOTAL PER COUNTED LEUKOCYTES BY MANUAL COUNT Normal [facility] Comment on above: Performed By: #### L [id number], [id number] ####Estimator And Drafter Supervisor: UNA ARCE ([phone])[facility] [place] ([facility])[address] [place] [address] [place] MONOCYTES (10*3/UL) IN BLOOD-CELLAVISION 0.9 10*3/uL Normal 0.0-0.9 [facility] Comment on above: Performed By: #### L [id number], [id number] ####Estimator And Drafter Supervisor: UAN ARCE ([phone])[facility] ([facility])[address] [place] [address] [place] MONOCYTES TOTAL PER COUNTED LEUKOCYTES BY MANUAL COUNT 7 Normal [facility] Comment on above: Performed By: #### L [id number], [id number] ####Estimator And Drafter Supervisor: UNA ARCE ([phone])[facility] [place] ([facility])[address] [place] [address] [place] MONOCYTES/100 LEUKOCYTES IN BLOOD-LUCIANA 7 % Normal 5-13 [facility] Comment on above: Performed By: #### L [id number], [id number] ####Estimator And Drafter Supervisor: UNA ARCE ([phone])[facility] [place] ([facility])[address] [place] [address] [place] MYELOCYTES (10*3/UL) IN BLOOD-CELLAVISION 0.1 10*3/uL High <=0.0 [facility] Comment on above: Performed By: #### L [id number], [id number] ####Estimator And Drafter Supervisor: UNA ARCE ([phone])[facility] ([facility])[address] [place] [address] [place] MYELOCYTES COUNTED BY MANUAL COUNT 1 Normal [facility] Comment on above: Performed By: #### L [id number], [id number] ####Estimator And Drafter Supervisor: UNA [phone])[facility] ([facility])[address] [place] [address] [place] MYELOCYTES/100 LEUKOCYTES IN BLOOD-CELLAVISION 1 % High <=0 [facility] Comment on above: Performed By: #### L [id number], [id number] ####Estimator And Drafter Supervisor: UNA ARCE ([phone])[facility] ([facility])[address] [place] [address] [place] NEUTROPHILS TOTAL PER COUNTED LEUKOCYTES BY MANUAL COUNT 77 Normal [facility] Comment on above: Performed By: #### L [id number], [id number] ####Estimator And Drafter Supervisor: UNA ARCE ([phone])[facility] [place] ([facility])[address] [place] [address] [place] POIKILOCYTOSIS (PRESENCE) IN BLOOD BY LIGHT MICROSCOPY Slight Abnormal (none) [facility] Comment on above: Performed By: #### L [id number], [id number] ####Estimator And Drafter Supervisor: UNA ARCE ([phone])[facility] [place] ([facility])[address] [place] [address] [place] PROMYELOCYTES TOTAL PER COUNTED LEUKOCYTES BY MANUAL COUNT [facility] Comment on above: Performed By: #### L [id number], [id number] ####Estimator And Drafter Supervisor: UNA ARCE ([phone])[facility] [place] ([facility])[address] [place] [address] [place] RBC MORPHOLOGY IN BLOOD abnormal Normal [facility] Comment on above: Performed By: #### L [id number], [id number] ####Estimator And Drafter Supervisor: UNA ARCE ([phone])[facility] [place] ([facility])[address] [place] [address] [place] SEGMENTED NEUTROPHILS (10*3/UL) IN BLOOD-CELLAVISION 9.7 10*3/uL High 1.8-7.5 [facility] Comment on above: Performed By: #### L [id number], [id number] ####Estimator And Drafter Supervisor: UNA ARCE ([phone])[facility] [place] ([facility])[address] SEGMENTED NEUTROPHILS/100 LEUKOCYTES-CE 76 % Normal 38-82 [facility] Comment on above: Performed By: #### L [id number], [id number] ####Estimator And Drafter Supervisor: UNA ARCE ([phone])[facility] ([facility])[address] STOMATOCYTES IN BLOOD BY LIGHT MICROSCOPY Slight Abnormal (none) [facility] Comment on above: Performed By: #### L [id number], [id number] ####Estimator And Drafter Supervisor: UNA ARCE ([phone])[facility] [place] ([facility])[address] UNCLASSIFIED CELLS TOTAL PER COUNTED LEUKOCYTES BY MANUAL COUNT Normal [facility] Comment on above: Performed By: #### L [id number], [id number] ####Estimator And Drafter Supervisor: UNA ARCE ([phone])[facility] [place] ([facility])[address] VARIANT LYMPHOCYTES TOTAL PER COUNTED LEUKOCYTES BY MANUAL COUNT Normal [facility] Comment on above: Performed By: #### L [id number], [id number] ####Estimator And Drafter Supervisor: UNA ARCE ([phone])[facility] (SBHLAB)[address] Magnesium [Mass/Vol]on 04-13 [facility] No Panel Informationon 04-13 Amount Of Oxygen 2 lpm [facility] alth Interpretation and review of laboratory results Abnormal [facility] Source Of Oxygen Nasal Cannula (LPM) [facility] Interpretation and review of laboratory results Normal [facility] Eosinophils Manual 2 High 0 - 1 [facility] Interpretation and review of laboratory results Abnormal [facility] Lymphocytes Manual 15 [facility] Monocytes Manual 7 [facility] alth Myelocytes Manual 1 [facility] ealth Neutrophils Manual 77 [facility] PHOSPHORUSon 04-13-2025 Phosphate [Mass/Vol] 2.9 mg/dL Normal 2.3-4.7 [facility] Comment on above: Performed By: #### L AB17, [id number], [id number] ####Estimator And Drafter Supervisor: UNA ARCE ([phone])[facility] (SBAB)[address] [place] [address] Phosphate [Moles/Vol]on Phosphate [Mass/Vol] 2.9 mg/dL 2.3 - 4 .7 mg/dL [facility] Progress Noteon 04-13-2025 Progress [facility] Progress Note [facility] Progress [facility] Normal [facility] Progress Note Normal [facility] XR Chest Single viewon 04-13 Radiology Study observation (narrative) [facility] alth [id number] 04-12-2025 [id number] Normal [facility] [id number] Normal [facility] CBC W Auto Differential pane l (Bld)on 04-12-2025 Erythrocyte distribution width (RBC) [Ratio] 24.3 % High 11.5 - 15.0 % [facility] Hematocrit (Bld) [Volume fraction] 26.8 % Low 40.0 - 52.0 % [facility] Hemoglobin (Bld) [Mass/Vol] 7.4 g/dL Low 13.0 - 18.0 g/dL [facility] MCH (RBC) [Entitic mass] 23.1 pg Low 26. 0 - 34.0 pg [facility] MCHC (RBC) [Mass/Vol] 27.6 % Low 30.5 - 36.0 % [facility] MCV (RBC) [Entitic vol] 83.8 fL 77.0 - 99.0 fL [facility] Platelet mean volume (Bld) [Entitic vol] 9.3 fL 9.0 - 12.7 fL [facility] Platelets (Bld) [#/Vol] 272 10*3/uL 140 - 440 10*3/uL [facility] RBC (Bld) [#/Vol] 3.2 10*6/uL Low 4.40 - 5.9 0 10*6/uL [facility] WBC (Bld) [#/Vol] 12 10*3/uL High 3.6 - 10.7 10*3/uL [facility] CBC WITH AUTO DIFFERENTIALon 04-12-2025 Erythrocyte distribution width (RBC) [Ratio] 24.3 % High 11.5-15.0 [facility] Comment on above: Performed By: #### L [id number], [id number] ####Estimator And Drafter Supervisor: UNA ARCE ([phone])[facility] (SBHLAB)[address] Hematocrit (Bld) [Volume fraction] 26.8 % Low 40.0-52.0 [facility] Comment on above: Performed By: #### L [id number], [id number] ####Estimator And Drafter Supervisor: UNA ARCE ([phone])[facility] (SBAB)[address] Hemoglobin (Bld) [Mass/Vol] 7.4 g/dL Low 13.0-18.0 [facility] Comment on above: Performed By: #### L [id number], [id number] ####Estimator And Drafter Supervisor: UNA ARCE ([phone])[facility] (SBHLAB)[address] MCH (RBC) [Entitic mass] 23.1 pg Low 26.0-34.0 [facility] Comment on above: Performed By: #### L [id number], [id number] ####Estimator And Drafter Supervisor: UNA ARCE ([phone])[facility] (SBHLAB)[address] MCHC 27.6 % Low 30.5-36.0 [facility] Comment on above: Performed By: #### L [id number], [id number] ####Estimator And Drafter Supervisor: UNA ARCE ([phone])[facility] (SBHLAB)[address] MCV (RBC) [Entitic vol] 83.8 fL Normal 77.0-99.0 [facility] Comment on above: Performed By: #### L [id number], [id number] ####Estimator And Drafter Supervisor: UNA ARCE ([phone])[facility] [place] (SB[facility])[address] Platelet mean volume (Bld) [Entitic vol] 9.3 fL Normal 9.0-12.7 [facility] Comment on above: Performed By: #### L [id number], [id number] ####Estimator And Drafter Supervisor: UNA ARCE ([phone])[facility] [place] ([facility])[address] Platelets (Bld) [#/Vol] 272 10*3/uL Normal 140-440 [facility] Comment on above: Performed By: #### L [id number], [id number] ####Estimator And Drafter Supervisor: UNA ARCE ([phone])[facility] [place] ([facility])[address] RBC (Bld) [#/Vol] 3.20 10*6/uL Low 4.40-5.90 [facility] Comment on above: Performed By: #### L [id number], [id number] ####Estimator And Drafter Supervisor: UNA ARCE ([phone])[facility] [place] ([facility])[address] WBC (Bld) [#/Vol] 12.0 10*3/uL High 3.6-10.7 [facility] Comment on above: Performed By: #### L [id number], [id number] ####Estimator And Drafter Supervisor: UNA ARCE ([phone])[facility] [place] ([facility])[address] COMPREHENSIVE METABOLIC PANE Anant 04-12-2025 Albumin [Mass/Vol] 2.2 g/dL Low 3.4-4.8 [facility] Comment on above: Performed By: #### L AB17, [id number], [id number] ####Estimator And Drafter Supervisor: UNA ARCE ([phone])[facility] [place] ([facility])[address] [place] [address] [place] ALP [Catalytic activity/Vol] 49 U/L Normal 40-150 [facility] Comment on above: Performed By: #### L AB17, [id number], [id number] ####Estimator And Drafter Supervisor: UNA ARCE ([phone])[facility] ([facility])[address] [place] [address] [place] ALT [Catalytic activity/Vol] U/L Normal <40 [facility] Comment on above: Performed By: #### L AB17, [id number], [id number] ####Estimator And Drafter Supervisor: UNA ARCE ([phone])[facility] [place] ([facility])[address] Anion gap [Moles/Vol] 7 mmol/L Normal 3-13 [facility] Comment on above: Performed By: #### L AB17, XKS717, JIQ701 ####Estimator And Drafter Supervisor: UNA ARCE ([phone])[facility] [place] ([facility])[address] AST [Catalytic activity/Vol] 19 U/L Normal <34 [facility] Comment on above: Performed By: #### L AB17, [id number], SBZ318 ####Estimator And Drafter Supervisor: UNA ARCE ([phone])[facility] [place] ([facility])[address] Bilirubin [Mass/Vol] 0.6 mg/dL Normal <1.2 [facility] Comment on above: Performed By: #### L AB17, OCF133, PLY546 ####Estimator And Drafter Supervisor: UNA ARCE ([phone])[facility] [place] ([facility])[address] [place] [address] [place] Calcium [Mass/Vol] 7.9 mg/dL Low 8.8-10.0 [facility] Comment on above: Performed By: #### L AB17, NIF702, [id number] ####Estimator And Drafter Supervisor: UNA ARCE ([phone])[facility] [place] ([facility])[address] [place] [address] [place] Chloride [Moles/Vol] 95 mmol/L Low 98-107 [facility] Comment on above: Performed By: #### L AB17, XLY266, GSB717 ####Estimator And Drafter Supervisor: UNA ARCE ([phone])[facility] (SBHLAB)[address] CO2 [Moles/Vol] 37 mmol/L High 23-31 [facility] Comment on above: Performed By: #### L AB17, OGQ938, QCZ119 ####Estimator And Drafter Supervisor: UNA ARCE ([phone])[facility] Creatinine [Mass/Vol] 1.53 mg/dL High 0.72-1.25 [facility] Comment on above: Performed By: #### Gilbert AHN17, XAW527, ITB814 ####Estimator And Drafter Supervisor: UNA ARCE ([phone])[facility] ([facility] GLOMERULAR FILTRATION RATE ML/MIN/1.73 SQ M.PREDICTED 43.2 mL/min/1.73m*2 Low >60.0 [facility] Comment on above: Result Comment: Calc ulation based on the Chronic Kidney Disease Epidemiology Collaboration (CKD-EPI) equation refit without adjustment for race Performed By: #### L 17, MBI373, WSH980 ####Estimator And Drafter Supervisor: UNA ARCE ([phone])[facility] (SB[facility])[address] Glucose [Mass/Vol] 103 mg/dL Normal 82-115 [facility] Comment on above: Performed By: #### L AB17, NBJ263, WYI671 ####Estimator And Drafter Supervisor: UNA ARCE ([phone])[facility] ([facility])[address] Potassium [Moles/Vol] 3.7 mmol/L Normal 3.5-5.1 [facility] Comment on above: Result Comment: Plas ma potassium values may be up to 0.5 mmol/L lower than serum values. Performed By: #### L AB17, NVE284, SOW692 ####Estimator And Drafter Supervisor: UNA STAUFFERMELANIE ([phone])[facility] (SB[facility])[address] Protein [Mass/Vol] 5.6 g/dL Low 6.4-8.3 [facility] Comment on above: Performed By: #### L AB17, YEP956, VPA883 ####Estimator And Drafter Supervisor: UNA ARCE ([phone])[facility] (SB[facility])[address] Sodium [Moles/Vol] 139 mmol/L Normal 136-145 [facility] Comment on above: Performed By: #### L AB17, NMH406, XBI867 ####Estimator And Drafter Supervisor: UNA ARCE ([phone])[facility] (SB[facility])[address] Urea nitrogen [Mass/Vol] 40 mg/dL High 9-23 [facility] Comment on above: Performed By: #### L AB17, OXD587, EXF066 ####Estimator And Drafter Supervisor: UNA BERMUDEZPEDRO ([phone])[facility] (SBHLAB)[address] [place] [address] Comprehensive metabolic 1998 panelon 04-12-2025 Albumin [Mass/Vol] 2.2 g/dL Low 3.4 - 4.8 g/dL [facility] ALP [Catalytic activity/Vol] 49 U/L 40 - 150 U/L [facility] ALT [Catalytic activity/Vol] U/L NINF - 40 U/L [facility] Anion gap [Moles/Vol] 7 mmol/L 3 - 13 mmol/L [facility] AST [Catalytic activity/Vol] 19 U/L NINF - 34 U/L [facility] Bilirubin [Mass/Vol] 0.6 mg/dL NINF - 1.2 mg/dL [facility] Calcium [Mass/Vol] 7.9 mg/dL Low 8.8 - 10. 0 mg/dL [facility] Chloride [Moles/Vol] 95 mmol/L Low 98 - 10 7 mmol/L [facility] CO2 [Moles/Vol] 37 mmol/L High 23 - 31 mmol/L [facility] Creatinine [Mass/Vol] 1.53 mg/dL High 0.72 - 1.25 mg/dL [facility] GFR/1.73 sq M.predicted (S/P/Bld) [Vol rate/Area] 43.2 mL/min Low - PINF [facility] Glucose [Mass/Vol] 103 mg/dL 82 - 115 mg/dL [facility] Interpretation and review of laboratory results Abnormal [facility] Potassium [Moles/Vol] 3.7 mmol/L 3.5 - 5.1 mmol/L [facility] Protein [Mass/Vol] 5.6 g/dL Low 6.4 - 8.3 g/dL [facility] Sodium [Moles/Vol] 139 mmol/L 136 - 145 mmol/L [facility] Urea nitrogen [Mass/Vol] 40 mg/dL High 9 - 23 mg/d L [facility] Consulton 04-12-2025 Consult Normal [facility] Laboratory - Chemistry and C hemistry - challengeon 04-12-2025 Magnesium [Mass/Vol] 2.2 mg/dL 1.6 - 2 .6 mg/dL [facility] Laboratory - Hematology and Cell countson 04-12-2025 Anisocytosis Ql (Bld) Slight Abnormal (none) [facility] Band form neutrophils (Bld) [#/Vol] 0.1 10*3/uL High NINF - 0.0 10*3/uL [facility] Band form neutrophils/100 WBC (Bld) 1 % High NINF - 0 % [facility] Eosinophils (Bld) [#/Vol] 0.8 10*3/uL High 0.0 - 0.5 10*3/uL [facility] Eosinophils/100 WBC (Bld) 7 % High 0 - 6 % [facility] Lymphocytes (Bld) [#/Vol] 0.7 10*3/uL Low 1.0 - 4.3 10*3/uL [facility] Lymphocytes/100 WBC (Bld) 6 % Low 15 - 45 % [facility] Monocytes (Bld) [#/Vol] 0.5 10*3/uL 0.0 - 0.9 10*3/uL [facility] Monocytes/100 WBC (Bld) 4 % Low 5 - 13 % [facility] Neutrophils (Bld) [#/Vol] 9.8 10*3/uL High 1.8 - 7.5 10*3/uL [facility] RBC morphology finding Nom (Bld) abnormal [facility] Segmented neutrophils/100 WBC (Bld) 81 % 38 - 82 % [facility] MAGNESIUMon 04-12-2025 Magnesium [Mass/Vol] 2.2 mg/dL Normal 1.6-2.6 [facility] Comment on above: Result Comment: YAERLI [place] COMMENTS:Higher values can be expected in females during menses. Performed By: #### L AB17, [id number], [id number] ####Estimator And Drafter Supervisor: UNA ARCE ([phone])[facility] [place] ([facility])[address] MANUAL DIFFERENTIAL (CELLAVI BANDAR)on 04-12-2025 ANISOCYTOSIS PRESENCE IN BLOOD BY LIGHT MICROSCOPY Slight Abnormal (none) [facility] Comment on above: Performed By: #### L [id number], [id number] ####Estimator And Drafter Supervisor: UNA ARCE ([phone])[facility] [place] ([facility])[address] BAND NEUTROPHILS TOTAL PER COUNTED LEUKOCYTES BY MANUAL COUNT 1 Normal [facility] Comment on above: Performed By: #### L [id number], [id number] ####Estimator And Drafter Supervisor: UNA ARCE ([phone])[facility] [place] ([facility])[address] BANDS (10*3/UL) IN BLOOD-CELLAVISION 0.1 10*3/uL High <=0.0 [facility] Comment on above: Performed By: #### L [id number], [id number] ####Estimator And Drafter Supervisor: UNA ARCE ([phone])[facility] [place] ([facility])[address] BASOPHILS TOTAL PER COUNTED LEUKOCYTES BY MANUAL COUNT Normal [facility] Comment on above: Performed By: #### L [id number], [id number] ####Estimator And Drafter Supervisor: UNA BERMUDEZPEDRO ([phone])[facility] (SBHLAB)[address] [place] [address] [place] BLASTS TOTAL PER COUNTED LEUKOCYTES BY MANUAL COUNT Normal [facility] Comment on above: Performed By: #### L [id number], [id number] ####Estimator And Drafter Supervisor: UNA YAZMIN ([phone])[facility] [place] ([facility])[address] [place] [address] [place] EOSINOPHILS (10*3/UL) IN BLOOD-CELLAVISION 0.8 10*3/uL High 0.0-0.5 [facility] Comment on above: Performed By: #### L [id number], [id number] ####Estimator And Drafter Supervisor: UNA BERMUDEZPEDRO ([phone])[facility] [place] ([facility])[address] [place] [address] [place] EOSINOPHILS TOTAL PER COUNTED LEUKOCYTES BY MANUAL COUNT 7 High 0-1 [facility] Comment on above: Performed By: #### L [id number], [id number] ####Estimator And Drafter Supervisor: UNA BERMUDEZPEDRO ([phone])[facility] [place] ([facility])[address] [place] [address] [place] EOSINOPHILS/100 LEUKOCYTES IN BLOOD-CELLAVISION 7 % High 0-6 [facility] Comment on above: Performed By: #### L [id number], [id number] ####Estimator And Drafter Supervisor: UNA BERMUDEZPEDRO ([phone])[facility] [place] ([facility])[address] [place] [address] [place] LYMPHOCYTES (10*3/UL) IN BLOOD-CELLAVISION 0.7 10*3/uL Low 1.0-4.3 [facility] Comment on above: Performed By: #### L [id number], [id number] ####Estimator And Drafter Supervisor: UNA BERMUDEZPEDRO ([phone])[facility] [place] ([facility])[address] [place] [address] [place] LYMPHOCYTES TOTAL PER COUNTED LEUKOCYTES BY MANUAL COUNT 6 Normal [facility] Comment on above: Performed By: #### L [id number], [id number] ####Estimator And Drafter Supervisor: UNA ARCE ([phone])[facility] ([facility])[address] [place] [address] [place] LYMPHOCYTES/100 LEUKOCYTES IN BLOOD-CELLAVISION 6 % Low 15-45 [facility] Comment on above: Performed By: #### L [id number], [id number] ####Estimator And Drafter Supervisor: UNA ARCE ([phone])[facility] [place] ([facility])[address] [place] [address] [place] METAMYELOCYTES TOTAL PER COUNTED LEUKOCYTES BY MANUAL COUNT Normal [facility] Comment on above: Performed By: #### L [id number], [id number] ####Estimator And Drafter Supervisor: UNA BERMUDEZPEDRO ([phone])[facility] [place] ([facility])[address] [place] [address] [place] MONOCYTES (10*3/UL) IN BLOOD-CELLAVISION 0.5 10*3/uL Normal 0.0-0.9 [facility] Comment on above: Performed By: #### L [id number], [id number] ####Estimator And Drafter Supervisor: UNA ARCE ([phone])[facility] [place] ([facility])[address] [place] [address] [place] MONOCYTES TOTAL PER COUNTED LEUKOCYTES BY MANUAL COUNT 4 Normal [facility] Comment on above: Performed By: #### L [id number], [id number] ####Estimator And Drafter Supervisor: UNA ARCE ([phone])[facility] [place] ([facility])[address] [place] [address] [place] MONOCYTES/100 LEUKOCYTES IN BLOOD-LUCIANA 4 % Low 5-13 [facility] Comment on above: Performed By: #### L [id number], [id number] ####Estimator And Drafter Supervisor: UNA STAUFFERMELANIE ([phone])[facility] [place] ([facility])[address] [place] [address] [place] MYELOCYTES COUNTED BY MANUAL COUNT Normal [facility] Comment on above: Performed By: #### L [id number], [id number] ####Estimator And Drafter Supervisor: UNA YAZMIN ([phone])[facility] ([facility])[address] [place] [address] [place] NEUTROPHILS BAND FORM/100 LEUKOCYTES IN BLOOD-CELLAVISI 1 % High <=0 [facility] Comment on above: Performed By: #### L [id number], [id number] ####Estimator And Drafter Supervisor: UNA BERMUDEZPEDRO ([phone])[facility] [place] ([facility])[address] [place] [address] [place] NEUTROPHILS TOTAL PER COUNTED LEUKOCYTES BY MANUAL COUNT 83 Normal [facility] Comment on above: Performed By: #### L [id number], [id number] ####Estimator And Drafter Supervisor: UNA BERMUDEZPEDRO ([phone])[facility] [place] ([facility])[address] [place] [address] [place] PROMYELOCYTES TOTAL PER COUNTED LEUKOCYTES BY MANUAL COUNT [facility] Comment on above: Performed By: #### L [id number], [id number] ####Estimator And Drafter Supervisor: UNA BERMUDEZPEDRO ([phone])[facility] [place] ([facility])[address] [place] [address] [place] RBC MORPHOLOGY IN BLOOD abnormal Normal [facility] Comment on above: Performed By: #### L [id number], [id number] ####Estimator And Drafter Supervisor: UNA STAUFFERMELANIE ([phone])[facility] [place] ([facility])[address] [place] [address] [place] SEGMENTED NEUTROPHILS (10*3/UL) IN BLOOD-CELLAVISION 9.8 10*3/uL High 1.8-7.5 [facility] Comment on above: Performed By: #### L [id number], [id number] ####Estimator And Drafter Supervisor: UNA ARCE ([phone])[facility] [place] ([facility])[address] [place] [address] [place] SEGMENTED NEUTROPHILS/100 LEUKOCYTES-CE 81 % Normal 38-82 [facility] Comment on above: Performed By: #### L [id number], [id number] ####Estimator And Drafter Supervisor: UNA ARCE ([phone])[facility] ([facility])[address] UNCLASSIFIED CELLS TOTAL PER COUNTED LEUKOCYTES BY MANUAL COUNT Normal [facility] Comment on above: Performed By: #### L [id number], [id number] ####Estimator And Drafter Supervisor: UNA ARCE ([phone])[facility] ([facility])[address] VARIANT LYMPHOCYTES TOTAL PER COUNTED LEUKOCYTES BY MANUAL COUNT Normal [facility] Comment on above: Performed By: #### L [id number], [id number] ####Estimator And Drafter Supervisor: UNA ARCE ([phone])[facility] [place] (SBHLAB)[address] Magnesium [Mass/Vol]on 04-12 [facility] No Panel Informationon 04-12 Bands Manual 1 [facility] Eosinophils Manual 7 High 0 - 1 [facility] Interpretation and review of laboratory results Abnormal [facility] Lymphocytes Manual 6 [facility] Monocytes Manual 4 [facility] alth Neutrophils Manual 83 [facility] Health Interpretation and review of laboratory results Normal [facility] PHOSPHORUSon 04-12-2025 Phosphate [Mass/Vol] 2.7 mg/dL Normal 2.3-4.7 [facility] Comment on above: Performed By: #### L [id number], [id number], [id number] ####Estimator And Drafter Supervisor: UNA ARCE ([phone])[facility] (SB[facility])[address] [place] [address] [place] Phosphate [Moles/Vol]on Phosphate [Mass/Vol] 2.7 mg/dL 2.3 - 4 .7 mg/dL [facility] Progress Noteon 04-12-2025 Progress Note Normal [facility] Progress Note Normal [facility] Progress Note Normal [facility] Progress Note Normal [facility] CBC W Auto Differential pane l (Bld)on 04-11-2025 Erythrocyte distribution width (RBC) [Ratio] 24.2 % High 11.5 - 15.0 % [facility] Hematocrit (Bld) [Volume fraction] 28.9 % Low 40.0 - 52.0 % [facility] Hemoglobin (Bld) [Mass/Vol] 7.9 g/dL Low 13.0 - 18.0 g/dL [facility] Interpretation and review of laboratory results Abnormal [facility] MCH (RBC) [Entitic mass] 22.7 pg Low 26. 0 - 34.0 pg [facility] MCHC (RBC) [Mass/Vol] 27.3 % Low 30.5 - 36.0 % [facility] MCV (RBC) [Entitic vol] 83 fL 77.0 - 99.0 fL [facility] Platelet mean volume (Bld) [Entitic vol] 9.2 fL 9.0 - 12.7 fL [facility] Platelets (Bld) [#/Vol] 313 10*3/uL 140 - 440 10*3/uL [facility] RBC (Bld) [#/Vol] 3.48 10*6/uL Low 4.40 - 5.9 0 10*6/uL [facility] WBC (Bld) [#/Vol] 13.8 10*3/uL High 3.6 - 10.7 10*3/uL [facility] CBC WITH AUTO DIFFERENTIALon 04-11-2025 Erythrocyte distribution width (RBC) [Ratio] 24.2 % High 11.5-15.0 [facility] Comment on above: Performed By: #### L [id number], [id number] ####Estimator And Drafter Supervisor: UNA ARCE ([phone])[facility] ([facility])[address] [place] [address] Hematocrit (Bld) [Volume fraction] 28.9 % Low 40.0-52.0 [facility] Comment on above: Performed By: #### L [id number], [id number] ####Estimator And Drafter Supervisor: UNA ARCE ([phone])[facility] ([facility])[address] Hemoglobin (Bld) [Mass/Vol] 7.9 g/dL Low 13.0-18.0 [facility] Comment on above: Performed By: #### L [id number], [id number] ####Estimator And Drafter Supervisor: UNA ARCE ([phone])[facility] (SBHLAB)[address] MCH (RBC) [Entitic mass] 22.7 pg Low 26.0-34.0 [facility] Comment on above: Performed By: #### L [id number], [id number] ####Estimator And Drafter Supervisor: UNA ARCE ([phone])[facility]ITALAngel [facility]ZFOUR [facility] (SBHLAB)[address] MCHC 27.3 % Low 30.5-36.0 [facility] Comment on above: Performed By: #### L [id number], [id number] ####Estimator And Drafter Supervisor: UNA ARCE ([phone])[facility] SANCHEZCHRISTINAN (SBHLAB)[address] MCV (RBC) [Entitic vol] 83.0 fL Normal 77.0-99.0 [facility] Comment on above: Performed By: #### L [id number], [id number] ####Estimator And Drafter Supervisor: UNA ARCE ([phone])[facility] (SBHLAB)[address] Platelet mean volume (Bld) [Entitic vol] 9.2 fL Normal 9.0-12.7 [facility] Comment on above: Performed By: #### L [id number], [id number] ####Estimator And Drafter Supervisor: UNA ARCE ([phone])[facility] (SBHLAB)[address] Platelets (Bld) [#/Vol] 313 10*3/uL Normal 140-440 [facility] Comment on above: Performed By: #### L [id number], [id number] ####Estimator And Drafter Supervisor: UNA ARCE ([phone])[facility] (SBHLAB)[address] RBC (Bld) [#/Vol] 3.48 10*6/uL Low 4.40-5.90 [facility] Comment on above: Performed By: #### L [id number], [id number] ####Estimator And Drafter Supervisor: UNA ARCE ([phone])[facility]Angel ESCOTO (SBHLAB)[address] WBC (Bld) [#/Vol] 13.8 10*3/uL High 3.6-10.7 [facility] Comment on above: Performed By: #### L [id number], [id number] ####Estimator And Drafter Supervisor: UNA ARCE ([phone])[facility]Angel BASHIRMarisol (SBHLAB)[address] COMPREHENSIVE METABOLIC PANE Anant 04-11-2025 Albumin [Mass/Vol] 2.4 g/dL Low 3.4-4.8 [facility] Comment on above: Performed By: #### L AB17, [id number], [id number] ####Estimator And Drafter Supervisor: UNA ARCE ([phone])[facility] SANCHEZLUIS (SBHLAB)[address] ALP [Catalytic activity/Vol] 53 U/L Normal 40-150 [facility] Comment on above: Performed By: #### L AB17, [id number], [id number] ####Estimator And Drafter Supervisor: UNA ARCE ([phone])[facility] [place]LU[place] (SBHLAB)[address] ALT [Catalytic activity/Vol] U/L Normal <40 [facility] Comment on above: Performed By: #### L AB17, [id number], [id number] ####Estimator And Drafter Supervisor: UNA ARCE ([phone])[facility]ITALAngel SANCHEZFOUR CORNERS REGIONAL HEALTH CENTERMarisol (SBHLAB)[address] Anion gap [Moles/Vol] 10 mmol/L Normal 3-13 [facility] Comment on above: Performed By: #### L AB17, [id number], [id number] ####Estimator And Drafter Supervisor: UNA ARCE ([phone])LYNETTE BASHIRN (SBHLAB)[address] [place] [address] [place] AST [Catalytic activity/Vol] 18 U/L Normal <34 [facility] Comment on above: Performed By: #### L AB17, [id number], QHC360 ####Estimator And Drafter Supervisor: UNA ARCE ([phone])[facility] BASHIRN (SBHLAB)[address] Bilirubin [Mass/Vol] 0.7 mg/dL Normal <1.2 [facility] Comment on above: Performed By: #### L AB17, [id number], RYM809 ####Estimator And Drafter Supervisor: UNA ARCE ([phone])[facility] BASHIRN (SBHLAB)[address] Calcium [Mass/Vol] 8.1 mg/dL Low 8.8-10.0 [facility] Comment on above: Performed By: #### L AB17, [id number], [id number] ####Estimator And Drafter Supervisor: UNA ARCE ([phone])[facility] BASHIRN (SBHLAB)[address] [place] [address] [place] Chloride [Moles/Vol] 94 mmol/L Low 98-107 [facility] Comment on above: Performed By: #### L AB17, [id number], LHC235 ####Estimator And Drafter Supervisor: UNA ARCE ([phone])[facility] BASHIRN (SBHLAB)[address] [place] [address] [place] CO2 [Moles/Vol] 35 mmol/L High 23-31 [facility] Comment on above: Performed By: #### L AB17, SLA160, [id number] ####Estimator And Drafter Supervisor: UNA ARCE ([phone])[facility] [place] (SBHLAB)[address] [place] [address] [place] Creatinine [Mass/Vol] 1.55 mg/dL High 0.72-1.25 [facility] Comment on above: Performed By: #### L AB17, [id number], [id number] ####Estimator And Drafter Supervisor: UNA ARCE ([phone])[facility]Angel SANCHEZBANNER (SBHLAB)[address] GLOMERULAR FILTRATION RATE ML/MIN/1.73 SQ M.PREDICTED 42.5 mL/min/1.73m*2 Low >60.0 [facility] Comment on above: Result Comment: Calc ulation based on the Chronic Kidney Disease Epidemiology Collaboration (CKD-EPI) equation refit without adjustment for race Performed By: #### L AB17, [id number], COA649 ####Estimator And Drafter Supervisor: UNA ARCE ([phone])[facility] (SBHLAB)[address] Glucose [Mass/Vol] 103 mg/dL Normal 82-115 [facility] Comment on above: Performed By: #### L AB17, GIT083, [id number] ####Estimator And Drafter Supervisor: UNA ARCE ([phone])[facility] (SBHLAB)[address] Potassium [Moles/Vol] 3.6 mmol/L Normal 3.5-5.1 [facility] Comment on above: Result Comment: [facility] potassium values may be up to 0.5 mmol/L lower than serum values. Performed By: #### L AB17, [id number], [id number] ####Estimator And Drafter Supervisor: UNA ARCE ([phone])[facility] (SBHLAB)[address] [place] [address] [place] Protein [Mass/Vol] 6.1 g/dL Low 6.4-8.3 [facility] Comment on above: Performed By: #### L AB17, [id number], LUC744 ####Estimator And Drafter Supervisor: UNA ARCE ([phone])[facility] (SBHLAB)[address] Sodium [Moles/Vol] 139 mmol/L Normal 136-145 [facility] Comment on above: Performed By: #### L AB17, SYM228, [id number] ####Estimator And Drafter Supervisor: UNA ARCE ([phone])[facility] (SBHLAB)[address] Urea nitrogen [Mass/Vol] 36 mg/dL High 9-23 [facility] Comment on above: Performed By: #### L AB17, [id number], [id number] ####Estimator And Drafter Supervisor: UNA ARCE ([phone])[facility]IG[facility] (SBHLAB)[address] Comprehensive metabolic 1998 panelon 04-11-2025 Albumin [Mass/Vol] 2.4 g/dL Low 3.4 - 4.8 g/dL [facility] ALP [Catalytic activity/Vol] 53 U/L 40 - 150 U/L [facility] ALT [Catalytic activity/Vol] U/L NINF - 40 U/L [facility] Anion gap [Moles/Vol] 10 mmol/L 3 - 13 mmol/L [facility] AST [Catalytic activity/Vol] 18 U/L [facility] U/L [facility] Bilirubin [Mass/Vol] 0.7 mg/dL NINF - 1.2 mg/dL [facility] Calcium [Mass/Vol] 8.1 mg/dL Low 8.8 - 10. 0 mg/dL [facility] Chloride [Moles/Vol] 94 mmol/L Low 98 - 10 7 mmol/L [facility] CO2 [Moles/Vol] 35 mmol/L High 23 - 31 mmol/L [facility] Creatinine [Mass/Vol] 1.55 mg/dL High 0.72 - 1.25 mg/dL [facility] GFR/1.73 sq M.predicted (S/P/Bld) [Vol rate/Area] 42.5 mL/min Low - PINF [facility] Glucose [Mass/Vol] 103 mg/dL 82 - 115 mg/dL [facility] Interpretation and review of laboratory results Abnormal [facility] Potassium [Moles/Vol] 3.6 mmol/L 3.5 - 5.1 mmol/L [facility] Protein [Mass/Vol] 6.1 g/dL Low 6.4 - 8.3 g/dL [facility] Sodium [Moles/Vol] 139 mmol/L 136 - 145 mmol/L [facility] Urea nitrogen [Mass/Vol] 36 mg/dL High 9 - 23 mg/d L [facility] Laboratory - Chemistry and C hemistry - challengeon 04-11-2025 Magnesium [Mass/Vol] 1.7 mg/dL 1.6 - 2 .6 mg/dL [facility] Laboratory - Hematology and Cell countson 04-11-2025 Anisocytosis Ql (Bld) Moderate Abnormal (none) [facility] Basophilic stippling LM Ql (Bld) Slight Abnormal (none) [facility] Basophils (Bld) [#/Vol] 0.1 10*3/uL 0.0 - 0.2 10*3/uL [facility] Basophils/100 WBC (Bld) 1 % 0 - 2 % [facility] Dacrocytes LM Ql (Bld) Rare Abnormal (none) [facility] Eosinophils (Bld) [#/Vol] 0.1 10*3/uL 0.0 - 0.5 10*3/uL [facility] Eosinophils/100 WBC (Bld) 1 % 0 - 6 % [facility] Hypochromia Ql (Bld) Slight Abnormal (none) [facility] Lymphocytes (Bld) [#/Vol] 1.4 10*3/uL 1.0 - 4.3 10*3/uL [facility] Lymphocytes/100 WBC (Bld) 10 % Low 15 - 45 % [facility] Monocytes (Bld) [#/Vol] 1.8 10*3/uL High 0.0 - 0.9 10*3/uL [facility] Monocytes/100 WBC (Bld) 13 % 5 - 13 % [facility] Neutrophils (Bld) [#/Vol] 10.5 10*3/uL High 1.8 - 7.5 10*3/uL [facility] Ovalocytes LM Ql (Bld) Slight Abnormal (none) [facility] Poikilocytosis LM Ql (Bld) Slight Abnormal (none) [facility] Polychromasia LM Ql (Bld) Slight Abnormal (none) [facility] RBC morphology finding Nom (Bld) abnormal [facility] Segmented neutrophils/100 WBC (Bld) 76 % 38 - 82 % [facility] Stomatocytes LM Ql (Bld) Slight Abnormal (none) [facility] Target cells LM Ql (Bld) Slight Abnormal (none) [facility] MAGNESIUMon 04-11-2025 Magnesium [Mass/Vol] 1.7 mg/dL Normal 1.6-2.6 [facility] Comment on above: Result Comment: ORDE R COMMENTS:Higher values can be expected in females during menses. Performed By: #### L AB17, [id number], [id number] ####Estimator And Drafter Supervisor: UNA ARCE ([phone])[facility] [place] (SBHLAB)[address] MANUAL DIFFERENTIAL (CELLAVI BANDAR)on 04-11-2025 ANISOCYTOSIS PRESENCE IN BLOOD BY LIGHT MICROSCOPY Moderate Abnormal (none) [facility] Comment on above: Performed By: #### L [id number], [id number] ####Estimator And Drafter Supervisor: UNA ARCE ([phone])[facility] [place] (SBHLAB)[address] BAND NEUTROPHILS TOTAL PER COUNTED LEUKOCYTES BY MANUAL COUNT Normal [facility] Comment on above: Performed By: #### L [id number], [id number] ####Estimator And Drafter Supervisor: UNA ARCE ([phone])[facility] [place] (SB[facility]AB)[address] BASOPHILIC STIPPLING PRESENCE IN BLOOD BY LIGHT MICROSCOPY Slight Abnormal (none) [facility] Comment on above: Performed By: #### L [id number], [id number] ####Estimator And Drafter Supervisor: UNA ARCE ([phone])[facility] [place] (SB[facility])[address] BASOPHILS (10*3/UL) IN BLOOD-CELLAVISION 0.1 10*3/uL Normal 0.0-0.2 [facility] Comment on above: Performed By: #### L [id number], [id number] ####Estimator And Drafter Supervisor: UNA ARCE ([phone])[facility] [place] (SB[facility])[address] BASOPHILS TOTAL PER COUNTED LEUKOCYTES BY MANUAL COUNT 1 Normal [facility] Comment on above: Performed By: #### L [id number], [id number] ####Estimator And Drafter Supervisor: UNA ARCE ([phone])[facility] [place] (SBHLAB)[address] [place] [address] [place] BASOPHILS/100 LEUKOCYTES IN BLOOD-CELLAVISION 1 % Normal 0-2 [facility] Comment on above: Performed By: #### L [id number], [id number] ####Estimator And Drafter Supervisor: UNA ARCE ([phone])[facility] [place] (SB[facility]AB)[address] [place] [address] [place] BLASTS TOTAL PER COUNTED LEUKOCYTES BY MANUAL COUNT Normal [facility] Comment on above: Performed By: #### L [id number], [id number] ####Estimator And Drafter Supervisor: UNA MOHRCER ([phone])[facility] [place] (SB[facility])[address] [place] [address] [place] DACROCYTES PRESENCE IN BLOOD BY LIGHT MICROSCOPY Rare Abnormal (none) [facility] Comment on above: Performed By: #### L [id number], [id number] ####Estimator And Drafter Supervisor: UNA ARCE ([phone])[facility] [place] (SB[facility])[address] [place] [address] [place] EOSINOPHILS (10*3/UL) IN BLOOD-CELLAVISION 0.1 10*3/uL Normal 0.0-0.5 [facility] Comment on above: Performed By: #### L [id number], [id number] ####Estimator And Drafter Supervisor: UNA ARCE ([phone])[facility] [place] (SB[facility])[address] [place] [address] [place] EOSINOPHILS TOTAL PER COUNTED LEUKOCYTES BY MANUAL COUNT 1 Normal 0-1 [facility] Comment on above: Performed By: #### L [id number], [id number] ####Estimator And Drafter Supervisor: UAN ARCE ([phone])[facility] [place] (SB[facility]AB)[address] [place] [address] [place] EOSINOPHILS/100 LEUKOCYTES IN BLOOD-CELLAVISION 1 % Normal 0-6 [facility] Comment on above: Performed By: #### L [id number], [id number] ####Estimator And Drafter Supervisor: UNA ARCE ([phone])[facility] [place] ([facility])[address] HYPOCHROMIA (PRESENCE) IN BLOOD BY LIGHT MICROSCOPY Slight Abnormal (none) [facility] Comment on above: Performed By: #### L [id number], [id number] ####Estimator And Drafter Supervisor: UNA ARCE ([phone])[facility] [place] (SB[facility])[address] [place] [address] [place] LYMPHOCYTES (10*3/UL) IN BLOOD-CELLAVISION 1.4 10*3/uL Normal 1.0-4.3 [facility] Comment on above: Performed By: #### L [id number], [id number] ####Estimator And Drafter Supervisor: UNA ARCE ([phone])[facility] [place] ([facility])[address] LYMPHOCYTES TOTAL PER COUNTED LEUKOCYTES BY MANUAL COUNT 10 Normal [facility] Comment on above: Performed By: #### L [id number], [id number] ####Estimator And Drafter Supervisor: UNA ARCE ([phone])[facility] [place] (SBHLAB)[address] [place] [address] [place] LYMPHOCYTES/100 LEUKOCYTES IN BLOOD-CELLAVISION 10 % Low 15-45 [facility] Comment on above: Performed By: #### L [id number], [id number] ####Estimator And Drafter Supervisor: UNA ARCE ([phone])[facility]BF[facility] (SBHLAB)[address] [place] [address] [place] METAMYELOCYTES TOTAL PER COUNTED LEUKOCYTES BY MANUAL COUNT Normal [facility] Comment on above: Performed By: #### L [id number], [id number] ####Estimator And Drafter Supervisor: UNA ARCE ([phone])[facility] [place] ([facility])[address] [place] [address] [place] MONOCYTES (10*3/UL) IN BLOOD-CELLAVISION 1.8 10*3/uL High 0.0-0.9 [facility] Comment on above: Performed By: #### L [id number], [id number] ####Estimator And Drafter Supervisor: UNA ARCE ([phone])[facility] [place] (SBHLAB)[address] [place] [address] [place] MONOCYTES TOTAL PER COUNTED LEUKOCYTES BY MANUAL COUNT 13 Normal [facility] Comment on above: Performed By: #### L [id number], [id number] ####Estimator And Drafter Supervisor: UNA MOHRCER ([phone])[facility] [place] (SBHLAB)[address] [place] [address] [place] MONOCYTES/100 LEUKOCYTES IN BLOOD-LUCIANA 13 % Normal 5-13 [facility] Comment on above: Performed By: #### L [id number], [id number] ####Estimator And Drafter Supervisor: UNA MOHRCER ([phone])[facility] [place] ([facility])[address] MYELOCYTES COUNTED BY MANUAL COUNT Normal [facility] Comment on above: Performed By: #### L [id number], [id number] ####Estimator And Drafter Supervisor: UNA ARCE ([phone])[facility] [place] (SBHLAB)[address] [place] [address] [place] NEUTROPHILS TOTAL PER COUNTED LEUKOCYTES BY MANUAL COUNT 79 Normal [facility] Comment on above: Performed By: #### L [id number], [id number] ####Estimator And Drafter Supervisor: UNA ARCE ([phone])[facility] [place] ([facility])[address] [place] [address] [place] OVALOCYTES PRESENCE IN BLOOD BY LIGHT MICROSCOPY Slight Abnormal (none) [facility] Comment on above: Performed By: #### L [id number], [id number] ####Estimator And Drafter Supervisor: UNA MOHRCER ([phone])[facility] [place] (SBHLAB)[address] [place] [address] [place] POIKILOCYTOSIS (PRESENCE) IN BLOOD BY LIGHT MICROSCOPY Slight Abnormal (none) [facility] Comment on above: Performed By: #### L [id number], [id number] ####Estimator And Drafter Supervisor: UNA ARCE ([phone])[facility] [place] (SBHLAB)[address] [place] [address] [place] POLYCHROMASIA IN BLOOD BY LIGHT MICROSCOPY Slight Abnormal (none) [facility] Comment on above: Performed By: #### L [id number], [id number] ####Estimator And Drafter Supervisor: UNA ARCE ([phone])[facility] [place] ([facility])[address] [place] [address] [place] PROMYELOCYTES TOTAL PER COUNTED LEUKOCYTES BY MANUAL COUNT Normal [facility] Comment on above: Performed By: #### L [id number], [id number] ####Estimator And Drafter Supervisor: UNA ARCE ([phone])[facility] [place] ([facility])[address] [place] [address] [place] RBC MORPHOLOGY IN BLOOD abnormal Normal [facility] Comment on above: Performed By: #### L [id number], [id number] ####Estimator And Drafter Supervisor: UNA ARCE ([phone])[facility] [place] ([facility])[address] [place] [address] [place] SEGMENTED NEUTROPHILS (10*3/UL) IN BLOOD-CELLAVISION 10.5 10*3/uL High 1.8-7.5 [facility] Comment on above: Performed By: #### L [id number], [id number] ####Estimator And Drafter Supervisor: UNA ARCE ([phone])[facility] [place] ([facility])[address] [place] [address] [place] SEGMENTED NEUTROPHILS/100 LEUKOCYTES-CE 76 % Normal 38-82 [facility] Comment on above: Performed By: #### L [id number], [id number] ####Estimator And Drafter Supervisor: UNA ARCE ([phone])[facility] [place] ([facility])[address] [place] [address] [place] STOMATOCYTES IN BLOOD BY LIGHT MICROSCOPY Slight Abnormal (none) [facility] Comment on above: Performed By: #### L [id number], [id number] ####Estimator And Drafter Supervisor: UNA ARCE ([phone])[facility] [place] ([facility])[address] [employer] CELLS IN BLOOD BY LIGHT MICROSCOPY Slight Abnormal (none) [facility] Comment on above: Performed By: #### L [id number], [id number] ####Estimator And Drafter Supervisor: UNA ARCE ([phone])[facility] SANC[facility]ZLUIS (SBHLAB)[address] UNCLASSIFIED CELLS TOTAL PER COUNTED LEUKOCYTES BY MANUAL COUNT Normal [facility] Comment on above: Performed By: #### L [id number], [id number] ####Estimator And Drafter Supervisor: UNA ARCE ([phone])[facility] [place] (SBHLAB)[address] VARIANT LYMPHOCYTES TOTAL PER COUNTED LEUKOCYTES BY MANUAL COUNT Normal [facility] Comment on above: Performed By: #### L [id number], [id number] ####Estimator And Drafter Supervisor: UNA ARCE ([phone])[facility] (SBHLAB)[address] Magnesium [Mass/Vol]on 04-11 [facility] No Panel Informationon 04-11 Basophils Manual 1 [facility]th Eosinophils Manual 1 0 - 1 [facility] Interpretation and review of laboratory results Abnormal [facility] Lymphocytes Manual 10 [facility] Monocytes Manual 13 [facility] alth Neutrophils Manual 79 [facility] Interpretation and review of laboratory results Normal [facility] PHOSPHORUSon 04-11-2025 Phosphate [Mass/Vol] 2.5 mg/dL Normal 2.3-4.7 [facility] Comment on above: Performed By: #### L AB17, [id number], [id number] ####Estimator And Drafter Supervisor: UNA ARCE ([phone])[facility] LAURACHRISTINAN (SBHLAB)[address] [place] [address] [place] Phosphate [Moles/Vol]on Phosphate [Mass/Vol] 2.5 mg/dL 2.3 - 4 .7 mg/dL [facility] Progress Noteon 04-11-2025 Progress Note [facility] Progress Note Normal [facility] Progress Note Normal [facility] XR Chest Single viewon 04-11 [facility] Radiology Study observation (narrative) Lynette ander XR Chest Single viewOrdered By: Katalina Corona on 04-11-2025 [facility] Work Phone: [phone] 04-10-2025 [id number] Normal [facility] CBC W Auto Differential pane l (Bld)on 04-10-2025 Erythrocyte distribution width (RBC) [Ratio] 22.9 % High 11.5 - 15.0 % [facility] Hematocrit (Bld) [Volume fraction] 26.1 % Low 40.0 - 52.0 % [facility] Hemoglobin (Bld) [Mass/Vol] 7.2 g/dL Low 13.0 - 18.0 g/dL [facility] Interpretation and review of laboratory results Abnormal [facility] MCH (RBC) [Entitic mass] 22.6 pg Low 26. 0 - 34.0 pg [facility] MCHC (RBC) [Mass/Vol] 27.6 % Low 30.5 - 36.0 % [facility] MCV (RBC) [Entitic vol] 82.1 fL 77.0 - 99.0 fL [facility] Platelet mean volume (Bld) [Entitic vol] 9.1 fL 9.0 - 12.7 fL [facility] Platelets (Bld) [#/Vol] 294 10*3/uL 140 - 440 10*3/uL [facility] RBC (Bld) [#/Vol] 3.18 10*6/uL Low 4.40 - 5.9 0 10*6/uL [facility] WBC (Bld) [#/Vol] 12.4 10*3/uL High 3.6 - 10.7 10*3/uL [facility] CBC WITH AUTO DIFFERENTIALon 04-10-2025 Erythrocyte distribution width (RBC) [Ratio] 22.9 % High 11.5-15.0 [facility] Comment on above: Performed By: #### L [id number] ####Estimator And Drafter Supervisor: UNA ARCE ([phone])[facility]ITAL[facility] ESCOTO (SBAB)[address] Hematocrit (Bld) [Volume fraction] 26.1 % Low 40.0-52.0 [facility] Comment on above: Performed By: #### L [id number], [id number] ####Estimator And Drafter Supervisor: UNA ARCE ([phone])LYNETTE SANCHEZLUIS (SBHLAB)[address] Hemoglobin (Bld) [Mass/Vol] 7.2 g/dL Low 13.0-18.0 [facility] Comment on above: Performed By: #### L [id number], [id number] ####Estimator And Drafter Supervisor: UNA ARCE ([phone])[facility] [place] (SBHLAB)[address] MCH (RBC) [Entitic mass] 22.6 pg Low 26.0-34.0 [facility] Comment on above: Performed By: #### L [id number], [id number] ####Estimator And Drafter Supervisor: UNA ARCE ([phone])[facility]ITALAngel SANCHEZLUIS (SBHLAB)[address] MCHC 27.6 % Low 30.5-36.0 [facility] Comment on above: Performed By: #### L [id number], [id number] ####Estimator And Drafter Supervisor: UNA ARCE ([phone])[facility] SANCHEZLUIS (SBHLAB)[address] MCV (RBC) [Entitic vol] 82.1 fL Normal 77.0-99.0 [facility] Comment on above: Performed By: #### L [id number], [id number] ####Estimator And Drafter Supervisor: UNA ARCE ([phone])[facility]ITALAngel BARBFOUR CORNERS REGIONAL HEALTH CENTERMarisol (SBHLAB)[address] Platelet mean volume (Bld) [Entitic vol] 9.1 fL Normal 9.0-12.7 [facility] Comment on above: Performed By: #### L [id number], [id number] ####Estimator And Drafter Supervisor: UNA ARCE ([phone])LYNETTE SANCHEZCHRISTINAN (SBHLAB)[address] Platelets (Bld) [#/Vol] 294 10*3/uL Normal 140-440 [facility] Comment on above: Performed By: #### L [id number], [id number] ####Estimator And Drafter Supervisor: UNA ARCE ([phone])[facility] MCKAYN (SBHLAB)[address] RBC (Bld) [#/Vol] 3.18 10*6/uL Low 4.40-5.90 [facility] Comment on above: Performed By: #### L [id number], [id number] ####Estimator And Drafter Supervisor: UNA ARCE ([phone])MONISHAA [place] (SBHLAB)[address] WBC (Bld) [#/Vol] 12.4 10*3/uL High 3.6-10.7 [facility] Comment on above: Performed By: #### L [id number], [id number] ####Estimator And Drafter Supervisor: UNA ARCE ([phone])[facility]ITALAngel BASHIRN (SBHLAB)[address] COMPREHENSIVE METABOLIC PANE Anant 04-10-2025 Albumin [Mass/Vol] 2.2 g/dL Low 3.4-4.8 [facility] Comment on above: Performed By: #### L ABTerrance, LAB17, [id number] ####Estimator And Drafter Supervisor: UNA ARCE ([phone])[facility] [place] (SBHLAB)[address] ALP [Catalytic activity/Vol] 50 U/L Normal 40-150 [facility] Comment on above: Performed By: #### L AB113, LAB17, [id number] ####Estimator And Drafter Supervisor: UNA ARCE ([phone])[facility] [place] (SBHLAB)[address] ALT [Catalytic activity/Vol] U/L Normal <40 [facility] Comment on above: Performed By: #### L ABTerrance, LAB17, [id number] ####Estimator And Drafter Supervisor: UNA ARCE ([phone])[facility] [place] (SBHLAB)[address] Anion gap [Moles/Vol] 12 mmol/L Normal 3-13 [facility] Comment on above: Performed By: #### Gilbert ABTerrance, LAB17, [id number] ####Estimator And Drafter Supervisor: UNA ARCE ([phone])[facility] [place] (SBHLAB)[address] AST [Catalytic activity/Vol] 16 U/L Normal <34 [facility] Comment on above: Performed By: #### Gilbert ABTerrance, LAB17, [id number] ####Estimator And Drafter Supervisor: UNA ARCE ([phone])[facility] [place] (SBHLAB)[address] Bilirubin [Mass/Vol] 0.6 mg/dL Normal <1.2 [facility] Comment on above: Performed By: #### Gilbert RAMSEY, LAB17, [id number] ####Estimator And Drafter Supervisor: UNA ARCE ([phone])[facility] [place] (SBHLAB)[address] Calcium [Mass/Vol] 8.0 mg/dL Low 8.8-10.0 [facility] Comment on above: Performed By: #### Gilbert RAMSEY, LAB17, [id number] ####Estimator And Drafter Supervisor: UNA ARCE ([phone])[facility] [place] (SBHLAB)[address] [place] [address] [place] Chloride [Moles/Vol] 95 mmol/L Low 98-107 [facility] Comment on above: Performed By: #### L ABTerrance, LAB17, [id number] ####Estimator And Drafter Supervisor: UNA ARCE ([phone])[facility]A [place] (SBHLAB)[address] [place] [address] [place] CO2 [Moles/Vol] 35 mmol/L High 23-31 [facility] Comment on above: Performed By: #### L AB113, LAB17, [id number] ####Estimator And Drafter Supervisor: UNA ARCE ([phone])[facility]ITALAngel BASHIRN (SBHLAB)[address] Creatinine [Mass/Vol] 1.65 mg/dL High 0.72-1.25 [facility] Comment on above: Performed By: #### L ABTerrance, LAB17, [id number] ####Estimator And Drafter Supervisor: UNA ARCE ([phone])[facility]Angel BASHIRN (SBHLAB)[address] GLOMERULAR FILTRATION RATE ML/MIN/1.73 SQ M.PREDICTED 39.4 mL/min/1.73m*2 Low >60.0 [facility] Comment on above: Result Comment: Calc ulation based on the Chronic Kidney Disease Epidemiology Collaboration (CKD-EPI) equation refit without adjustment for race Performed By: #### Gilbert ABTerrance, LAB17, [id number] ####Estimator And Drafter Supervisor: UNA ARCE ([phone])[facility]Angel BASHIRN (SBHLAB)[address] Glucose [Mass/Vol] 98 mg/dL Normal 82-115 [facility] Comment on above: Performed By: #### Gilbert AB113, LAB17, [id number] ####Estimator And Drafter Supervisor: UNA ARCE ([phone])[facility]ITALAngel SANCHEZCHRISTINAN (SBHLAB)[address] [place] [address] [place] Potassium [Moles/Vol] 3.2 mmol/L Low 3.5-5.1 [facility] Comment on above: Result Comment: [facility] potassium values may be up to 0.5 mmol/L lower than serum values. Performed By: #### L AB113, LAB17, [id number] ####Estimator And Drafter Supervisor: UNA ARCE ([phone])[facility]ITALAngel [place]ERT[place] (SBHLAB)[address] Protein [Mass/Vol] 5.5 g/dL Low 6.4-8.3 [facility] Comment on above: Performed By: #### L AB113, LAB17, [id number] ####Estimator And Drafter Supervisor: UNA YAZMIN ([phone])[facility]ITALAngel ESCOTO (SBHLAB)[address] Sodium [Moles/Vol] 142 mmol/L Normal 136-145 [facility] Comment on above: Performed By: #### Gilbert ABTerrance, LAB17, [id number] ####Estimator And Drafter Supervisor: UNA YAZMIN ([phone])[facility]ITALAngel SANCHEZFOUR CORNERS REGION[facility] HEALTH CENTERN (SBHLAB)[address] Urea nitrogen [Mass/Vol] 32 mg/dL High 9-23 [facility] Comment on above: Performed By: #### Gilbert RAMSEY, LAB17, [id number] ####Estimator And Drafter Supervisor: UNA ARCE ([phone])[facility]ITALAngel SANCHEZBANNER (SBHLAB)[address] Comprehensive metabolic 1998 panelon 04-10-2025 Albumin [Mass/Vol] 2.2 g/dL Low 3.4 - 4.8 g/dL [facility] ALP [Catalytic activity/Vol] 50 U/L 40 - 150 U/L [facility] ALT [Catalytic activity/Vol] U/L [facility] U/L [facility] Anion gap [Moles/Vol] 12 mmol/L 3 - 13 mmol/L [facility] AST [Catalytic activity/Vol] 16 U/L [facility] - 34 U/L [facility] Bilirubin [Mass/Vol] 0.6 mg/dL NINF - 1.2 mg/dL [facility] Calcium [Mass/Vol] 8 mg/dL Low 8.8 - 10. 0 mg/dL [facility] Chloride [Moles/Vol] 95 mmol/L Low 98 - 10 7 mmol/L [facility] CO2 [Moles/Vol] 35 mmol/L High 23 - 31 mmol/L [facility] Creatinine [Mass/Vol] 1.65 mg/dL High 0.72 - 1.25 mg/dL [facility] GFR/1.73 sq M.predicted (S/P/Bld) [Vol rate/Area] 39.4 mL/min Low - PINF [facility] Glucose [Mass/Vol] 98 mg/dL 82 - 115 mg/dL [facility] Interpretation and review of laboratory results Abnormal [facility] Potassium [Moles/Vol] 3.2 mmol/L Low 3.5 - 5.1 mmol/L [facility] Protein [Mass/Vol] 5.5 g/dL Low 6.4 - 8.3 g/dL [facility] Sodium [Moles/Vol] 142 mmol/L 136 - 145 mmol/L [facility] Urea nitrogen [Mass/Vol] 32 mg/dL High 9 - 23 mg/d L [facility] Laboratory - Chemistry and C hemistry - challengeon 04-10-2025 Magnesium [Mass/Vol] 1.7 mg/dL 1.6 - 2 .6 mg/dL [facility] - Hematology and Cell countson 04-10-2025 Anisocytosis Ql (Bld) Slight Abnormal (none) [facility] Band form neutrophils (Bld) [#/Vol] 0.2 10*3/uL High NINF - 0.0 10*3/uL [facility] Band form neutrophils/100 WBC (Bld) 2 % High NINF - 0 % [facility] Basophils (Bld) [#/Vol] 0.5 10*3/uL High 0.0 - 0.2 10*3/uL [facility] Basophils/100 WBC (Bld) 4 % High 0 - 2 % [facility] Eosinophils (Bld) [#/Vol] 0.5 10*3/uL 0.0 - 0.5 10*3/uL [facility] Eosinophils/100 WBC (Bld) 4 % 0 - 6 % [facility] Lymphocytes (Bld) [#/Vol] 0.9 10*3/uL Low 1.0 - 4.3 10*3/uL [facility] Lymphocytes/100 WBC (Bld) 7 % Low 15 - 45 % [facility] Monocytes (Bld) [#/Vol] 0.5 10*3/uL 0.0 - 0.9 10*3/uL [facility] Monocytes/100 WBC (Bld) 4 % Low 5 - 13 % [facility] Myelocytes (Bld) [#/Vol] 0.1 10*3/uL High SELENE F - 0.0 10*3/uL [facility] Myelocytes/100 WBC (Bld) 1 % High NINF - 0 % [facility] Neutrophils (Bld) [#/Vol] 9.9 10*3/uL High 1.8 - 7.5 10*3/uL [facility] Poikilocytosis LM Ql (Bld) Slight Abnormal (none) [facility] RBC morphology finding Nom (Bld) abnormal [facility] Segmented neutrophils/100 WBC (Bld) 78 % 38 - 82 % [facility] Stomatocytes LM Ql (Bld) Moderate Abnormal (none) [facility] MAGNESIUMon 04-10-2025 Magnesium [Mass/Vol] 1.7 mg/dL Normal 1.6-2.6 [facility] Comment on above: Result Comment: YARELI R COMMENTS:Higher values can be expected in females during menses. Performed By: #### L AB113, LAB17, [id number] ####Estimator And Drafter Supervisor: UNA ARCE ([phone])[facility] ([facility])[address] [place] [address] MANUAL DIFFERENTIAL (CELLAVI BANDAR)on 04-10-2025 ANISOCYTOSIS PRESENCE IN BLOOD BY LIGHT MICROSCOPY Slight Abnormal (none) [facility] Comment on above: Performed By: #### L [id number], [id number] ####Estimator And Drafter Supervisor: UNA ARCE ([phone])[facility] [place] [address] BAND NEUTROPHILS TOTAL PER COUNTED LEUKOCYTES BY MANUAL COUNT 2 Normal [facility] Comment on above: Performed By: #### L [id number], [id number] ####Estimator And Drafter Supervisor: UNA ARCE ([phone])[facility]ITALA BARBFOUR CORNERS REG[facility]ENTERN ([facility])[address] [place] [address] [place] BANDS (10*3/UL) IN BLOOD-CELLAVISION 0.2 10*3/uL High <=0.0 [facility] Comment on above: Performed By: #### L [id number], [id number] ####Estimator And Drafter Supervisor: UNA ARCE ([phone])[facility] (SBAB)[address] [place] [address] [place] BASOPHILS (10*3/UL) IN BLOOD-CELLAVISION 0.5 10*3/uL High 0.0-0.2 [facility] Comment on above: Performed By: #### L [id number], [id number] ####Estimator And Drafter Supervisor: UNA ARCE ([phone])[facility] [place] (SBHLAB)[address] [place] [address] [place] BASOPHILS TOTAL PER COUNTED LEUKOCYTES BY MANUAL COUNT 4 Normal [facility] Comment on above: Performed By: #### L [id number], [id number] ####Estimator And Drafter Supervisor: UNA ARCE ([phone])[facility] [place] (SBHLAB)[address] [place] [address] [place] BASOPHILS/100 LEUKOCYTES IN BLOOD-CELLAVISION 4 % High 0-2 [facility] Comment on above: Performed By: #### L [id number], [id number] ####Estimator And Drafter Supervisor: UNA ARCE ([phone])[facility] [place] (SBHLAB)[address] BLASTS TOTAL PER COUNTED LEUKOCYTES BY MANUAL COUNT [facility] Comment on above: Performed By: #### L [id number], [id number] ####Estimator And Drafter Supervisor: UNA ARCE ([phone])[facility] [place] (SBHLAB)[address] [place] [address] [place] EOSINOPHILS (10*3/UL) IN BLOOD-CELLAVISION 0.5 10*3/uL Normal 0.0-0.5 [facility] Comment on above: Performed By: #### L [id number], [id number] ####Estimator And Drafter Supervisor: UNA ARCE ([phone])[facility] [place] (SBHLAB)[address] [place] [address] [place] EOSINOPHILS TOTAL PER COUNTED LEUKOCYTES BY MANUAL COUNT High 0-1 [facility] Comment on above: Performed By: #### L [id number], [id number] ####Estimator And Drafter Supervisor: UNA ARCE ([phone])[facility] [place] (SBHLAB)[address] [place] [address] [place] EOSINOPHILS/100 LEUKOCYTES IN BLOOD-CELLAVISION 4 % Normal 0-6 [facility] Comment on above: Performed By: #### L [id number], [id number] ####Estimator And Drafter Supervisor: UNA ARCE ([phone])[facility] [place] (SBHLAB)[address] LYMPHOCYTES (10*3/UL) IN BLOOD-CELLAVISION 0.9 10*3/uL Low 1.0-4.3 [facility] Comment on above: Performed By: #### L [id number], [id number] ####Estimator And Drafter Supervisor: UNA ARCE ([phone])[facility] [place] (SBHLAB)[address] LYMPHOCYTES TOTAL PER COUNTED LEUKOCYTES BY MANUAL COUNT 7 Normal [facility] Comment on above: Performed By: #### L [id number], [id number] ####Estimator And Drafter Supervisor: UNA ARCE ([phone])[facility] [place] (SBHLAB)[address] [place] [address] [place] LYMPHOCYTES/100 LEUKOCYTES IN BLOOD-CELLAVISION 7 % Low 15-45 [facility] Comment on above: Performed By: #### L [id number], [id number] ####Estimator And Drafter Supervisor: UNA ARCE ([phone])[facility]A BARBFOUR CORNERS REG[facility] HEALTH CENTERN (SBHLAB)[address] METAMYELOCYTES TOTAL PER COUNTED LEUKOCYTES BY MANUAL COUNT [facility] Comment on above: Performed By: #### L [id number], [id number] ####Estimator And Drafter Supervisor: UNA ARCE ([phone])[facility] [place] (SBHLAB)[address] [place] [address] [place] MONOCYTES (10*3/UL) IN BLOOD-CELLAVISION 0.5 10*3/uL Normal 0.0-0.9 [facility] Comment on above: Performed By: #### L [id number], [id number] ####Estimator And Drafter Supervisor: UNA ARCE ([phone])[facility] [place] (SBHLAB)[address] [place] [address] [place] MONOCYTES TOTAL PER COUNTED LEUKOCYTES BY MANUAL COUNT 4 Normal [facility] Comment on above: Performed By: #### L [id number], [id number] ####Estimator And Drafter Supervisor: UNA ARCE ([phone])[facility] [place] (SBHLAB)[address] [place] [address] [place] MONOCYTES/100 LEUKOCYTES IN BLOOD-LUCIANA 4 % Low 5-13 [facility] Comment on above: Performed By: #### L [id number], [id number] ####Estimator And Drafter Supervisor: UNA ARCE ([phone])[facility] [place] (SBHLAB)[address] [place] [address] [place] MYELOCYTES (10*3/UL) IN BLOOD-CELLAVISION 0.1 10*3/uL High <=0.0 [facility] Comment on above: Performed By: #### L [id number], [id number] ####Estimator And Drafter Supervisor: UNA ARCE ([phone])[facility] [place] (SBHLAB)[address] [place] [address] [place] MYELOCYTES COUNTED BY MANUAL COUNT 1 Normal [facility] Comment on above: Performed By: #### L [id number], [id number] ####Estimator And Drafter Supervisor: UNA ARCE ([phone])[facility] [place] (SBHLAB)[address] [place] [address] [place] MYELOCYTES/100 LEUKOCYTES IN BLOOD-CELLAVISION 1 % High <=0 [facility] Comment on above: Performed By: #### L [id number], [id number] ####Estimator And Drafter Supervisor: UNA ARCE ([phone])[facility] [place] (SBHLAB)[address] [place] [address] [place] NEUTROPHILS BAND FORM/100 LEUKOCYTES IN BLOOD-CELLAVISI 2 % High <=0 [facility] Comment on above: Performed By: #### L [id number], [id number] ####Estimator And Drafter Supervisor: UNA ARCE ([phone])[facility] [place] (SBHLAB)[address] [place] [address] [place] NEUTROPHILS TOTAL PER COUNTED LEUKOCYTES BY MANUAL COUNT 79 Normal [facility] Comment on above: Performed By: #### L [id number], [id number] ####Estimator And Drafter Supervisor: UNA ARCE ([phone])[facility] [place] (SBHLAB)[address] [place] [address] [place] POIKILOCYTOSIS (PRESENCE) IN BLOOD BY LIGHT MICROSCOPY Slight Abnormal (none) [facility] Comment on above: Performed By: #### L [id number], [id number] ####Estimator And Drafter Supervisor: UNA ARCE ([phone])[facility] [place] (SBHLAB)[address] PROMYELOCYTES TOTAL PER COUNTED LEUKOCYTES BY MANUAL COUNT Normal [facility] Comment on above: Performed By: #### L [id number], [id number] ####Estimator And Drafter Supervisor: UNA ARCE ([phone])[facility] [place] (SBHLAB)[address] [place] [address] [place] RBC MORPHOLOGY IN BLOOD abnormal Normal [facility] Comment on above: Performed By: #### L [id number], [id number] ####Estimator And Drafter Supervisor: UNA ARCE ([phone])[facility] [place] (SBHLAB)[address] [place] [address] [place] SEGMENTED NEUTROPHILS (10*3/UL) IN BLOOD-CELLAVISION 9.9 10*3/uL High 1.8-7.5 [facility] Comment on above: Performed By: #### L [id number], [id number] ####Estimator And Drafter Supervisor: UNA ARCE ([phone])[facility] [place] (SBHLAB)[address] [place] [address] [place] SEGMENTED NEUTROPHILS/100 LEUKOCYTES-CE 78 % Normal 38-82 [facility] Comment on above: Performed By: #### L [id number], [id number] ####Estimator And Drafter Supervisor: UNA ARCE ([phone])[facility] [place] (SBHLAB)[address] [place] [address] [place] STOMATOCYTES IN BLOOD BY LIGHT MICROSCOPY Moderate Abnormal (none) [facility] Comment on above: Performed By: #### L [id number], [id number] ####Estimator And Drafter Supervisor: UNA ARCE ([phone])[facility]ITALAngel SANCHEZBANNER (SBHLAB)[address] UNCLASSIFIED CELLS TOTAL PER COUNTED LEUKOCYTES BY MANUAL COUNT Normal [facility] Comment on above: Performed By: #### L [id number], [id number] ####Estimator And Drafter Supervisor: UNA ARCE ([phone])[facility] (HLAB)[address] VARIANT LYMPHOCYTES TOTAL PER COUNTED LEUKOCYTES BY MANUAL COUNT Normal [facility] Comment on above: Performed By: #### L [id number], [id number] ####Estimator And Drafter Supervisor: UNA ARCE ([phone])[facility] (HLAB)[address] [place] [address] [place] Magnesium [Mass/Vol]on 04-10 [facility] No Panel Informationon 04-10 Bands Manual 2 [facility] Basophils Manual 4 [facility] Eosinophils Manual 4 High 0 - 1 [facility] Interpretation and review of laboratory results Abnormal [facility] Lymphocytes Manual 7 [facility] Monocytes Manual 4 [facility] Myelocytes Manual 1 [facility] H ealth Neutrophils Manual 79 [facility] Interpretation and review of laboratory results Normal [facility] PHOSPHORUSon 04-10-2025 Phosphate [Mass/Vol] 2.6 mg/dL Normal 2.3-4.7 [facility] Comment on above: Performed By: #### L AB113, LAB17, [id number] ####Estimator And Drafter Supervisor: UNA ARCE ([phone])[facility] (SBHLAB)[address] [place] [address] [place] Phosphate [Moles/Vol]on Phosphate [Mass/Vol] 2.6 mg/dL 2.3 - 4 .7 mg/dL [facility] Progress Noteon 04-10-2025 Progress Note [facility] Progress Note [facility] Progress Note Will assume care as patient is being transferred out of ICU. D/w Dr Lewis via secure chat Normal [facility] Progress Note Normal [facility] Progress Note Normal [facility] [id number] 04-09-2025 [id number] Normal [facility] [id number] Normal [facility] BODY FLUID CELL COUNT WITH R EFLEX DIFFon 04-09-2025 RBC, BODY FLUID (AUTOMATED) <0.002 High 0.000 [facility] Comment on above: Performed By: #### L [id number], [id number] ####Estimator And Drafter Supervisor: UNA ARCE ([phone])[facility] (SBHLAB)[address] [place] [address] WBC, BODY FLUID (AUTOMATED) 0.341 x10*3/ul High <=0.005 [facility] Comment on above: Performed By: #### L [id number], [id number] ####Estimator And Drafter Supervisor: UNA ARCE ([phone])[facility] [place] (SBHLAB)[address] [place] [address] RBC, BODY FLUID (AUTOMATED) <0.002 High 0.000 [facility] Comment on above: Performed By: #### L [id number], [id number] ####Estimator And Drafter Supervisor: UNA ARCE ([phone])[facility] (SBHLAB)[address] [place] [address] WBC, BODY FLUID (AUTOMATED) 0.112 x10*3/ul High <=0.005 [facility] Comment on above: Performed By: #### L [id number], [id number] ####Estimator And Drafter Supervisor: UNA ARCE ([phone])[facility] BARBBANNER (SBHLAB)[address] [place] [address] BODY FLUID DIFFERENTIALon CELLS COUNTED TOTAL (#) IN BODY FLUID 100 Normal [facility] Comment on above: Performed By: #### L [id number], [id number] ####Estimator And Drafter Supervisor: UNA ARCE ([phone])[facility] [place] (SBHLAB)[address] [place] [address] [place] LYMPHOCYTES/100 LEUKOCYTES IN BODY FLUID BY MAN CT 51 % Normal [facility] Comment on above: Performed By: #### L [id number], [id number] ####Estimator And Drafter Supervisor: UNA ARCE ([phone])[facility] [place] (SBHLAB)[address] [place] [address] [place] MONOCYTES+MACROPHAGES/10 0 WBC IN BODY FLUID BY MAN CT 36 % Normal [facility] Comment on above: Performed By: #### L [id number], [id number] ####Estimator And Drafter Supervisor: UNA ARCE ([phone])[facility] [place] (SBHLAB)[address] [place] [address] [place] Neutrophils/100 WBC (Bld) 13 % Normal [facility] Comment on above: Performed By: #### L [id number], [id number] ####Estimator And Drafter Supervisor: UNA ARCE ([phone])[facility] [place] (SBHLAB)[address] [place] [address] [place] CELLS COUNTED TOTAL (#) IN BODY FLUID 100 Normal [facility] Comment on above: Performed By: #### L [id number], [id number] ####Estimator And Drafter Supervisor: UNA ARCE ([phone])[facility] [place] (SBHLAB)[address] [place] [address] [place] LYMPHOCYTES/100 LEUKOCYTES IN BODY FLUID BY MAN CT 31 % Normal [facility] Comment on above: Performed By: #### L [id number], [id number] ####Estimator And Drafter Supervisor: UNA ARCE ([phone])[facility] ([facility])[address] [place] [address] [place] MESOTHELIAL CELLS/100 LEUKOCYTES IN BODY FLUID BY MANUAL COUNT 2 % [facility] Comment on above: Performed By: #### L [id number], [id number] ####Estimator And Drafter Supervisor: UNA ARCE ([phone])[facility] ([facility])[address] MONOCYTES+MACROPHAGES/10 0 WBC IN BODY FLUID BY MAN CT 37 % [facility] Comment on above: Performed By: #### L [id number], [id number] ####Estimator And Drafter Supervisor: UNA ARCE ([phone])[facility] ([facility])[address] Neutrophils/100 WBC (Bld) 30 % [facility] Comment on above: Performed By: #### L [id number], [id number] ####Estimator And Drafter Supervisor: UNA ARCE ([phone])[facility] ([facility])155 [address] CBC W Auto Differential pane l (Bld)Ordered By: Jg Sarabia on 04-09-2025 Erythrocyte distribution width (RBC) [Ratio] 21.8 % High 11.5 - 15.0 % [employer] [facility] Hematocrit (Bld) [Volume fraction] 27.7 % Low 40.0 - 52.0 % [facility] Hemoglobin (Bld) [Mass/Vol] 7.5 g/dL Low 13.0 - 18.0 g/dL [facility] MCH (RBC) [Entitic mass] 22.6 pg Low 26. 0 - 34.0 pg [facility] MCHC (RBC) [Mass/Vol] 27.1 % Low 30.5 - 36.0 % [facility] MCV (RBC) [Entitic vol] 83.4 fL 77.0 - 99.0 fL [facility] Platelet mean volume (Bld) [Entitic vol] 9.4 fL 9.0 - 12.7 fL [facility] Platelets (Bld) [#/Vol] 279 10*3/uL 140 - 440 10*3/uL [facility] RBC (Bld) [#/Vol] 3.32 10*6/uL Low 4.40 - 5.9 0 10*6/uL [facility] WBC (Bld) [#/Vol] 11.2 10*3/uL High 3.6 - 10.7 10*3/uL [facility] CBC WITH AUTO DIFFERENTIALon 04-09-2025 Erythrocyte distribution width (RBC) [Ratio] 21.8 % High 11.5-15.0 [facility] Comment on above: Performed By: #### L [id number], [id number] ####Estimator And Drafter Supervisor: UNA ARCE ([phone])LYNETTE SANCHEZLUIS (SBHLAB)[address] Hematocrit (Bld) [Volume fraction] 27.7 % Low 40.0-52.0 [facility] Comment on above: Performed By: #### L [id number], [id number] ####Estimator And Drafter Supervisor: UNA ARCE ([phone])[facility]OSPITALAngel [facility] CENTERMarisol (SBHLAB)[address] Hemoglobin (Bld) [Mass/Vol] 7.5 g/dL Low 13.0-18.0 [facility] Comment on above: Performed By: #### L [id number], [id number] ####Estimator And Drafter Supervisor: UNA ARCE ([phone])[facility]OSPITALAngel SANCHEZCHRISTINAN (SBHLAB)[address] MCH (RBC) [Entitic mass] 22.6 pg Low 26.0-34.0 [facility] Comment on above: Performed By: #### L [id number], [id number] ####Estimator And Drafter Supervisor: UNA ARCE ([phone])[facility]OSPITALAngel SANCHEZFOUR CORNERS REGIONAL HEALTH CENTERMarisol (SBHLAB)[address] MCHC 27.1 % Low 30.5-36.0 [facility] Comment on above: Performed By: #### L [id number], [id number] ####Estimator And Drafter Supervisor: UNA ARCE ([phone])[facility] HOSPITALAngle SANCHEZFOUR CORNERS REGIONAL HEALTH CENTERN (SBHLAB)[address] MCV (RBC) [Entitic vol] 83.4 fL Normal 77.0-99.0 [facility] Comment on above: Performed By: #### L [id number], [id number] ####Estimator And Drafter Supervisor: UNA ARCE ([phone])[facility]PITALA LAURACHRISTINAN (SBHLAB)[address] Platelet mean volume (Bld) [Entitic vol] 9.4 fL Normal 9.0-12.7 [facility] Comment on above: Performed By: #### L [id number], [id number] ####Estimator And Drafter Supervisor: UNA ARCE ([phone])MONISHAA MCKAYN (SBHLAB)[address] Platelets (Bld) [#/Vol] 279 10*3/uL Normal 140-440 [facility] Comment on above: Performed By: #### L [id number], [id number] ####Estimator And Drafter Supervisor: UNA ARCE ([phone])[facility]ITALA MCKAYN (SBHLAB)[address] RBC (Bld) [#/Vol] 3.32 10*6/uL Low 4.40-5.90 [facility] Comment on above: Performed By: #### L [id number], [id number] ####Estimator And Drafter Supervisor: UNA ARCE ([phone])[facility]PITALAngel SANCHEZFOUR CORNERS REGIONAL HEALTH CENTERN (SBHLAB)[address] WBC (Bld) [#/Vol] 11.2 10*3/uL High 3.6-10.7 [facility] Comment on above: Performed By: #### L [id number], [id number] ####Estimator And Drafter Supervisor: NUA ARCE ([phone])[facility]PITALA BARBFOUR CORNERS REGIONAL HEALTH CENTERN (SBHLAB)[address] COMPREHENSIVE METABOLIC PANE Anant 04-09-2025 Albumin [Mass/Vol] 2.2 g/dL Low 3.4-4.8 [facility] Comment on above: Performed By: #### L AB103, [id number], [id number] ####Estimator And Drafter Supervisor: UNA ARCE ([phone])[facility]ITALA LAURAFOUR CORNERS REGIONAL HEALTH CENTERN (SBHLAB)[address] ALP [Catalytic activity/Vol] 56 U/L Normal 40-150 [facility] Comment on above: Performed By: #### L AB103, [id number], LAB17 ####Estimator And Drafter Supervisor: UNA ARCE ([phone])[facility]OSPITALAngel ESCOTO (SBHLAB)[address] ALT [Catalytic activity/Vol] U/L Normal <40 [facility] Comment on above: Performed By: #### L AB103, [id number], LAB17 ####Estimator And Drafter Supervisor: UNA ARCE ([phone])[facility]ITALAngel SANCHEZFOUR CORNERS REGIONAL HEALTH CENTERN (SBHLAB)[address] Anion gap [Moles/Vol] 10 mmol/L Normal 3-13 [facility] Comment on above: Performed By: #### L AB103, [id number], LAB17 ####Estimator And Drafter Supervisor: UNA ARCE ([phone])[facility] (SBHLAB)[address] AST [Catalytic activity/Vol] 18 U/L Normal <34 [facility] Comment on above: Performed By: #### L AB103, [id number], LAB17 ####Estimator And Drafter Supervisor: UNA ARCE ([phone])[facility] (SBHLAB)[address] Bilirubin [Mass/Vol] 0.7 mg/dL Normal <1.2 [facility] Comment on above: Performed By: #### L AB103, [id number], LAB17 ####Estimator And Drafter Supervisor: UNA ARCE ([phone])[facility]ATIONN (SBHLAB)[address] Calcium [Mass/Vol] 8.1 mg/dL Low 8.8-10.0 [facility] Comment on above: Performed By: #### L AB103, [id number], LAB17 ####Estimator And Drafter Supervisor: UNA ARCE ([phone])[facility]ITALAngel SANCHEZFOUR CORNERS REGIONAL HEALTH CENTERN (SBHLAB)[address] Chloride [Moles/Vol] 98 mmol/L Normal 98-107 [facility] Comment on above: Performed By: #### L AB103, [id number], LAB17 ####Estimator And Drafter Supervisor: UNA YAZMIN ([phone])[facility] (SBHLAB)[address] CO2 [Moles/Vol] 34 mmol/L High 23-31 [facility] Comment on above: Performed By: #### L AB103, [id number], LAB17 ####Estimator And Drafter Supervisor: UNA BERMUDEZPEDRO ([phone])[facility] (SBHLAB)[address] Creatinine [Mass/Vol] 1.53 mg/dL High 0.72-1.25 [facility] Comment on above: Performed By: #### L AB103, [id number], LAB17 ####Estimator And Drafter Supervisor: UNA BERMUDEZPEDRO ([phone])[facility] ([facility])[address] GLOMERULAR FILTRATION RATE ML/MIN/1.73 SQ M.PREDICTED 43.2 mL/min/1.73m*2 Low >60.0 [facility] Comment on above: Result Comment: Calc ulation based on the Chronic Kidney Disease Epidemiology Collaboration (CKD-EPI) equation refit without adjustment for race Performed By: #### L AB103, [id number], LAB17 ####Estimator And Drafter Supervisor: UNA STAUFFERMELANIE ([phone])[facility] ([facility])[address] Glucose [Mass/Vol] 90 mg/dL Normal 82-115 [facility] Comment on above: Performed By: #### L AB103, [id number], LAB17 ####Estimator And Drafter Supervisor: UNA BERMUDEZPEDRO ([phone])[facility] ([facility])[address] Potassium [Moles/Vol] 3.5 mmol/L Normal 3.5-5.1 [facility] Comment on above: Result Comment: [facility] potassium values may be up to 0.5 mmol/L lower than serum values. Performed By: #### L AB103, [id number], LAB17 ####Estimator And Drafter Supervisor: UNAANJEL ARCE ([phone])[facility] HOSPITALAngel ESCOTO (SBHLAB)[address] [place] [address] Protein [Mass/Vol] 5.7 g/dL Low 6.4-8.3 [facility] Comment on above: Performed By: #### L AB103, [id number], LAB17 ####Estimator And Drafter Supervisor: UNA YAZMIN ([phone])[facility]PITALAngel ESCOTO (SBHLAB)[address] Sodium [Moles/Vol] 142 mmol/L Normal 136-145 [facility] Comment on above: Performed By: #### L AB103, [id number], LAB17 ####Estimator And Drafter Supervisor: UNAANJEL ARCE ([phone])[facility]OSPITALAngel ESCOTO (SBHLAB)[address] [place] [address] Urea nitrogen [Mass/Vol] 25 mg/dL High 9-23 [facility] Comment on above: Performed By: #### L AB103, [id number], LAB17 ####Estimator And Drafter Supervisor: UNA YAZMIN ([phone])[facility]OSPITALAngel ESCOTO (SBHLAB)[address] [place] [address] CULTURE ANAEROBICon 04-09-20 CULTURE [facility]NAEROBIC [facility] Comment on above: Performed By: #### L AB233 ####Estimator And Drafter Supervisor: ANAHY AVILA ([phone])[facility] ([facility])[address] [place] [address] CULTURE ANAEROBIC Normal [facility] Comment on above: Performed By: #### L AB233 ####Estimator And Drafter Supervisor: ANAHY AVILA ([phone])[address] CULTURE, AEROBIC BACTERIA WI TH GRAM STAINon 04-09-2025 CULTURE, AEROBIC BACTERIA WITH GRAM STAIN Normal [facility] Comment on above: Performed By: #### L AB897 ####Estimator And Drafter Supervisor: ANAHY AVILA ([phone])[facility] ([facility])[address] [place] [address] CULTURE, AEROBIC BACTERIA WITH GRAM STAIN Normal [facility] Comment on above: Performed By: #### L AB897 ####Estimator And Drafter Supervisor: ANAHY AVILA ([phone])[facility] ([facility])[address] [place] [address] Comprehensive metabolic 1998 panelon 04-09-2025 Albumin [Mass/Vol] 2.2 g/dL Low 3.4 - 4.8 g/dL [facility] ALP [Catalytic activity/Vol] 56 U/L 40 - 150 U/L [facility] ALT [Catalytic activity/Vol] U/L NINF - 40 U/L [facility] Anion gap [Moles/Vol] 10 mmol/L 3 - 13 mmol/L [facility] AST [Catalytic activity/Vol] 18 U/L [facility] 34 U/L [facility] Bilirubin [Mass/Vol] 0.7 mg/dL NINF - 1.2 mg/dL [facility] Calcium [Mass/Vol] 8.1 mg/dL Low 8.8 - 10. 0 mg/dL [facility] Chloride [Moles/Vol] 98 mmol/L 98 - 10 7 mmol/L [facility] CO2 [Moles/Vol] 34 mmol/L High 23 - 31 mmol/L [facility] Creatinine [Mass/Vol] 1.53 mg/dL High 0.72 - 1.25 mg/dL [facility] GFR/1.73 sq M.predicted (S/P/Bld) [Vol rate/Area] 43.2 mL/min Low - PINF [facility] Glucose [Mass/Vol] 90 mg/dL 82 - 115 mg/dL [facility] Interpretation and review of laboratory results Abnormal [facility] Potassium [Moles/Vol] 3.5 mmol/L 3.5 - 5.1 mmol/L [facility] Protein [Mass/Vol] 5.7 g/dL Low 6.4 - 8.3 g/dL [facility] Sodium [Moles/Vol] 142 mmol/L 136 - 145 mmol/L [facility] Urea nitrogen [Mass/Vol] 25 mg/dL High 9 - 23 mg/d L [facility] Consulton 04-09-2025 Consult Normal [facility] GLUCOSE, BODY FLUIDon 2024 GLUCOSE, BODY FLUID 132 mg/dL Normal [facility] Comment on above: Performed By: #### L AB188, [id number], [id number], [id number] ####Estimator And Drafter Supervisor: ANAHY AVILA ([phone])[facility] ([facility])[address] [place] [address] GLUCOSE, BODY FLUID 92 mg/dL Normal [facility] Comment on above: Performed By: #### L AB196, [id number], [id number], [id number] ####Estimator And Drafter Supervisor: ANAHY AVILA ([phone])[facility] ([facility])[address] [place] [address] LACTATE DEHYDROGENASEon LDH [Catalytic activity/Vol] 181 U/L Normal 125-220 [facility] Comment on above: Performed By: #### L AB118, LAB96 ####Estimator And Drafter Supervisor: UNA ARCE ([phone])[facility] ([id number] LACTATE DEHYDROGENASE, BODY FLUIDon 04-09-2025 LACTATE DEHYDROGENASE, BODY FLUID BY LAC->PYR 95 U/L Normal [facility] Comment on above: Performed By: #### L AB188, LPT310, [id number], [id number] ####Estimator And Drafter Supervisor: ANAHY AVILA ([phone])[facility] ([facility])[address] [place] [address] LACTATE DEHYDROGENASE, BODY FLUID BY LAC->PYR 95 U/L Normal [facility] Comment on above: Performed By: #### L AB196, [id number], HSS075, IRC034 ####Estimator And Drafter Supervisor: ANAHY AVILA ([phone])[facility])[address] [place] [address] TYPE OF BODY FLUID Pleural Fluid Normal [facility] Comment on above: Result Comment: YARELI [place] COMMENTS:This test was developed and its performance characteristics determined by [employer]. It has not been cleared or approved by the [place] Food and Drug Administration. This test was performed in a CLIA certified laboratory and is intended for clinical purposes.Exudates are defined as meeting one of the following criteria: (a) Pleural vtstp-ok-wbaju protein ratio of >0.5, (b) pleural uaedq-fk-ifkkj LDH ratio of >0.6, or (c)a pleural fluid LDH activity that is >2/3 the upper limit of a normal serum LDH activity (Light???s criteria). Performed By: #### L AB196, COG247, EHQ489, GWL682 ####Estimator And Drafter Supervisor: ANAHY AVILA ([phone])[facility] ([facility])[address] [place] [address] Result Comment: ORDE R COMMENTS:This test was developed and its performance characteristics determined by [employer]. It has not been cleared or approved [...] malignancy, empyema, and/or rheumatoid disease. Result Comment: AILYNE R COMMENTS:This test was developed and its performance characteristics determined by [employer]. It has not been cleared or approved by the [place] Food and Drug Administration. This test was performed in a CLIA certified laboratory and is intended for clinical purposes.Pleural chrkb-bh-lefjw protein ratio of >0.5 is one of Light???s criteria for an exudate. Heart failure associated misclassifications (by Light???s criteria) may be differentiated as transudative effusions by subsequently evaluating a gpexl-fo-vftsuse albumin gradient (>1.2 g/dL) and/or a kpndx-bq-bbfny protein gradient (>3.1 g/dL). Result Comment: ORDE R COMMENTS:This test was developed and its performance characteristics determined by [employer]. It has not been cleared or approved by the US Food and Drug Administration. This test was performed in a CLIA certified laboratory and is intended for clinical purposes. Performed By: #### L [id number], [id number] ####Estimator And Drafter Supervisor: UNA ARCE ([phone])[facility]PITALAngel BASHIR (SBHLAB)[address] [place] [address] LDH Lactate to pyruvate reac tion [Catalytic activity/Vol]on 04-09-2025 Interpretation and review of laboratory results [facility] Fluid Nom (Body fld) Pleural Fluid S [facility] Fluid Nom (Body fld) Pleural Fluid S [facility] Fluid Nom (Body fld) Pleural Fluid S [facility] Fluid Nom (Body fld) Pleural Fluid S [facility] Fluid Nom (Body fld) Pleural Fluid S [facility] Fluid Nom (Body fld) Pleural Fluid S [facility] Fluid Nom (Body fld) Pleural Fluid S [facility] LaboratoryOrdered By: Anne cadena on 04-09-2025 Fluid Nom (Body fld) Pleural Fluid S [facility] LaboratoryOrdered By: Rian Spann on 04-09-2025 Fluid Nom (Body fld) Pleural Fluid S [facility] - Chemistry and C hemistry - challengeon 04-09-2025 LDH (Body fld) [Catalytic activity/Vol] 95 U/L [facility] Glucose (Body fld) [Mass/Vol] 132 mg/dL [facility] Protein (Body fld) [Mass/Vol] 2.3 g/dL [facility] pH (Body fld) 7.747 [pH] [facility] pH (Body fld) 7.688 [pH] [facility] Protein (Body fld) [Mass/Vol] 2.5 g/dL [facility] Glucose (Body fld) [Mass/Vol] 92 mg/dL [facility] LDH Lactate to pyruvate reaction [Catalytic activity/Vol] 181 U/L 125 - 220 U/L [facility] Protein [Mass/Vol] 5.9 g/dL Low 6.4 - 8.3 g/dL [facility] Magnesium [Mass/Vol] 1.7 mg/dL 1.6 - 2 .6 mg/dL [facility] Laboratory - Chemistry and C hemistry - challengeOrdered By: Anne Miles on 04-09-2025 LDH (Body fld) [Catalytic activity/Vol] 95 U/L [facility] - Hematology and Cell countson 04-09-2025 Cells Counted Total (Body fld) [#] 100 [facility] Lymphocytes/100 WBC (Bld) 51 % [facility] Macrophages/100 WBC Manual cnt (Body fld) 36 % [facility] Neutrophils/100 WBC (Body fld) 13 % [facility] RBC Auto (Body fld) [#/Vol] High [facility] WBC (Body fld) [#/Vol] 0.341 10*3/uL High NINF [facility] Cells Counted Total (Body fld) [#] 100 [facility] Lymphocytes/100 WBC (Bld) 31 % [facility] Macrophages/100 WBC Manual cnt (Body fld) 37 % [facility] Mesothelial cells/100 WBC Manual cnt (Body fld) 2 % [facility] Neutrophils/100 WBC (Body fld) 30 % [facility] Anisocytosis Ql (Bld) Moderate Abnormal (none) [facility] Eosinophils (Bld) [#/Vol] 0.6 10*3/uL High 0.0 - 0.5 10*3/uL [facility] Eosinophils/100 WBC (Bld) 5 % 0 - 6 % [facility] Hypochromia Ql (Bld) Moderate Abnormal (none) [facility] Lymphocytes (Bld) [#/Vol] 0.8 10*3/uL Low 1.0 - 4.3 10*3/uL [facility] Lymphocytes/100 WBC (Bld) 7 % Low 15 - 45 % [facility] Monocytes (Bld) [#/Vol] 2 10*3/uL High 0.0 - 0.9 10*3/uL [facility] Monocytes/100 WBC (Bld) 18 % High 5 - 13 % [facility] Neutrophils (Bld) [#/Vol] 8 10*3/uL High 1.8 - 7.5 10*3/uL [facility] Poikilocytosis LM Ql (Bld) Slight Abnormal (none) [facility] Polychromasia LM Ql (Bld) Slight Abnormal (none) [facility] RBC morphology finding Nom (Bld) abnormal [facility] Segmented neutrophils/100 WBC (Bld) 71 % 38 - 82 % [facility] Stomatocytes LM Ql (Bld) Moderate Abnormal (none) [facility] Laboratory - Hematology and Cell countsOrdered By: Kyara Valles on 04-09-2025 RBC Auto (Body fld) [#/Vol] High [facility] WBC (Body fld) [#/Vol] 0.112 10*3/uL High NINF [facility] MAGNESIUMon 04-09-2025 Magnesium [Mass/Vol] 1.7 mg/dL Normal 1.6-2.6 [facility] Comment on above: Result Comment: YARELI [place] COMMENTS:Higher values can be expected in females during menses. Performed By: #### L AB103, [id number], LAB17 ####Estimator And Drafter Supervisor: UNA ARCE ([phone])[facility] [place] (SBHLAB)[address] MANUAL DIFFERENTIAL (CELLAVI BANDAR)on 04-09-2025 ANISOCYTOSIS PRESENCE IN BLOOD BY LIGHT MICROSCOPY Moderate Abnormal (none) [facility] Comment on above: Performed By: #### L [id number], [id number] ####Estimator And Drafter Supervisor: UNA ARCE ([phone])[facility] [place] (SBHLAB)[address] BAND NEUTROPHILS TOTAL PER COUNTED LEUKOCYTES BY MANUAL COUNT Normal [facility] Comment on above: Performed By: #### L [id number], [id number] ####Estimator And Drafter Supervisor: UNA ARCE ([phone])[facility] [place] (SBHLAB)[address] BASOPHILS TOTAL PER COUNTED LEUKOCYTES BY MANUAL COUNT Normal [facility] Comment on above: Performed By: #### L [id number], [id number] ####Estimator And Drafter Supervisor: UNA ARCE ([phone])[facility] [place] (SBHLAB)[address] BLASTS TOTAL PER COUNTED LEUKOCYTES BY MANUAL COUNT Normal [facility] Comment on above: Performed By: #### L [id number], [id number] ####Estimator And Drafter Supervisor: UNA ARCE ([phone])[facility] [place] (SBHLAB)[address] EOSINOPHILS (10*3/UL) IN BLOOD-CELLAVISION 0.6 10*3/uL High 0.0-0.5 [facility] Comment on above: Performed By: #### L [id number], [id number] ####Estimator And Drafter Supervisor: UNA ARCE ([phone])[facility] [place] (SBHLAB)[address] [place] [address] [place] EOSINOPHILS TOTAL PER COUNTED LEUKOCYTES BY MANUAL COUNT 5 High 0-1 [facility] Comment on above: Performed By: #### L [id number], [id number] ####Estimator And Drafter Supervisor: UNA ARCE ([phone])[facility] [place] (SBHL[facility])[address] [place] [address] [place] EOSINOPHILS/100 LEUKOCYTES IN BLOOD-CELLAVISION 5 % Normal 0-6 [facility] Comment on above: Performed By: #### L [id number], [id number] ####Estimator And Drafter Supervisor: UNA ARCE ([phone])[facility] [place] (SBHLAB)[address] [place] [address] [place] HYPOCHROMIA (PRESENCE) IN BLOOD BY LIGHT MICROSCOPY Moderate Abnormal (none) [facility] Comment on above: Performed By: #### L [id number], [id number] ####Estimator And Drafter Supervisor: UNA ARCE ([phone])[facility] [place] (SBHLAB)[address] [place] [address] [place] LYMPHOCYTES (10*3/UL) IN BLOOD-CELLAVISION 0.8 10*3/uL Low 1.0-4.3 [facility] Comment on above: Performed By: #### L [id number], [id number] ####Estimator And Drafter Supervisor: UNA ARCE ([phone])[facility] [place] (SBHL[facility])[address] [place] [address] [place] LYMPHOCYTES TOTAL PER COUNTED LEUKOCYTES BY MANUAL COUNT 7 Normal [facility] Comment on above: Performed By: #### L [id number], [id number] ####Estimator And Drafter Supervisor: UNA ARCE ([phone])[facility] [place] (SBHL[facility])[address] [place] [address] [place] LYMPHOCYTES/100 LEUKOCYTES IN BLOOD-CELLAVISION 7 % Low 15-45 [facility] Comment on above: Performed By: #### L [id number], [id number] ####Estimator And Drafter Supervisor: UNA ARCE ([phone])[facility] [place] ([facility])[address] [place] [address] [place] METAMYELOCYTES TOTAL PER COUNTED LEUKOCYTES BY MANUAL COUNT [facility] Comment on above: Performed By: #### L [id number], [id number] ####Estimator And Drafter Supervisor: UNA ARCE ([phone])[facility] [place] ([facility])[address] [place] [address] [place] MONOCYTES (10*3/UL) IN BLOOD-CELLAVISION 2.0 10*3/uL High 0.0-0.9 [facility] Comment on above: Performed By: #### L [id number], [id number] ####Estimator And Drafter Supervisor: UNA ARCE ([phone])[facility] [place] ([facility])[address] [place] [address] [place] MONOCYTES TOTAL PER COUNTED LEUKOCYTES BY MANUAL COUNT 19 [facility] Comment on above: Performed By: #### L [id number], [id number] ####Estimator And Drafter Supervisor: UNA ARCE ([phone])[facility] [place] ([facility])[address] [place] [address] [place] MONOCYTES/100 LEUKOCYTES IN BLOOD-LUCIANA 18 % High 5-13 [facility] Comment on above: Performed By: #### L [id number], [id number] ####Estimator And Drafter Supervisor: UNA ARCE ([phone])[facility] [place] ([facility])[address] [place] [address] [place] MYELOCYTES COUNTED BY MANUAL COUNT [facility] Comment on above: Performed By: #### L [id number], [id number] ####Estimator And Drafter Supervisor: UNA ARCE ([phone])[facility] [place] ([facility])[address] [place] [address] [place] NEUTROPHILS TOTAL PER COUNTED LEUKOCYTES BY MANUAL COUNT 77 Normal [facility] Comment on above: Performed By: #### L [id number], [id number] ####Estimator And Drafter Supervisor: UNA ARCE ([phone])[facility] [place] ([facility])[address] [place] [address] [place] POIKILOCYTOSIS (PRESENCE) IN BLOOD BY LIGHT MICROSCOPY Slight Abnormal (none) [facility] Comment on above: Performed By: #### L [id number], [id number] ####Estimator And Drafter Supervisor: UNA ARCE ([phone])[facility] [place] ([facility])[address] POLYCHROMASIA IN BLOOD BY LIGHT MICROSCOPY Slight Abnormal (none) [facility] Comment on above: Performed By: #### L [id number], [id number] ####Estimator And Drafter Supervisor: UNA STAUFFERMELANIE ([phone])[facility] [place] (SB[facility])[address] PROMYELOCYTES TOTAL PER COUNTED LEUKOCYTES BY MANUAL COUNT Normal [facility] Comment on above: Performed By: #### L [id number], [id number] ####Estimator And Drafter Supervisor: UNA ARCE ([phone])[facility] [place] (SBHL[facility])155 [place] [address] [place] RBC MORPHOLOGY IN BLOOD abnormal Normal S [facility] Comment on above: Performed By: #### L [id number], [id number] ####Estimator And Drafter Supervisor: UNA ARCE ([phone])[facility] [place] (SB[facility])155 [place] [address] [place] SEGMENTED NEUTROPHILS (10*3/UL) IN BLOOD-CELLAVISION 8.0 10*3/uL High 1.8-7.5 [facility] Comment on above: Performed By: #### L [id number], [id number] ####Estimator And Drafter Supervisor: UNA ARCE ([phone])[facility] [place] (SB[facility])[address] [place] [address] [place] SEGMENTED NEUTROPHILS/100 LEUKOCYTES-CE 71 % Normal 38-82 [facility] Comment on above: Performed By: #### L [id number], [id number] ####Estimator And Drafter Supervisor: UNA BERMUDEZPEDRO ([phone])[facility] [place] ([facility])[address] STOMATOCYTES IN BLOOD BY LIGHT MICROSCOPY Moderate Abnormal (none) [facility] Comment on above: Performed By: #### L [id number], [id number] ####Estimator And Drafter Supervisor: UNA BERMUDEZPEDRO ([phone])[facility] [place] (SB[facility])[address] UNCLASSIFIED CELLS TOTAL PER COUNTED LEUKOCYTES BY MANUAL COUNT Normal [facility] Comment on above: Performed By: #### L [id number], [id number] ####Estimator And Drafter Supervisor: UNA STAUFFERMELANIE ([phone])[facility] [place] ([place])[address] VARIANT LYMPHOCYTES TOTAL PER COUNTED LEUKOCYTES BY MANUAL COUNT Normal [facility] Comment on above: Performed By: #### L [id number], [id number] ####Estimator And Drafter Supervisor: UNA BERMUDEZPEDRO ([phone])[facility] [place] (SBHLAB)[address] Magnesium [Mass/Vol]on 04-09 [facility] No Panel Informationon 04-09 [facility] Interpretation and review of laboratory results Abnormal [facility] Interpretation and review of laboratory results Abnormal [facility] Interpretation and review of laboratory results Normal [facility] Eosinophils Manual 5 High 0 - 1 [facility] Lymphocytes Manual 7 [facility] Monocytes Manual [address] [facility] Neutrophils Manual 77 [facility] No Panel InformationOrdered By: Anne Miles on 04-09-2025 [facility] No Panel InformationOrdered By: Kyara Valles on 04-09-2025 Interpretation and review of laboratory results Abnormal [facility] No Panel InformationOrdered By: Jg Sarabia on 04-09-2025 Interpretation and review of laboratory results Abnormal [facility] Nursing Noteon 04-09-2025 Nursing Note R thoracentesis complete pt tolerated well with minimal discomfort Normal [facility] Nursing Note L thoracentesis complete per Dr Lewis. Pt tolerated well with minimal discomfort Normal [facility] PH, BODY FLUIDon 04-09-2025 pH (Body fld) 7.747 [pH] Normal [facility] Comment on above: Performed By: #### L [id number], [id number], [id number], [id number] ####Estimator And Drafter Supervisor: ANAHY AVILA ([phone])[facility] [place] [address] TYPE OF BODY FLUID Pleural Fluid Normal [facility] Comment on above: Result Comment: YARELI [place] COMMENTS:This test was developed and its performance characteristics determined by [employer]. It has not been cleared or approved by the US Food and Drug Administration. This test was performed in a CLIA certified laboratory and is intended for clinical purposes. Performed By: #### L [id number], [id number], [id number], [id number] ####Estimator And Drafter Supervisor: ANAHY AVILA ([phone])[facility] ([facility])[address] [place] [address] Result Comment: YARELI [place] COMMENTS:This test was developed and its performance characteristics determined by [employer]. It has not been cleared or approved [...] developed and its performance characteristics determined by [employer]. It has not been cleared or approved by the US Food and Drug Administration. This test was performed in a CLIA certified laboratory and is intended for clinical purposes.Pleural snktt-bu-vzxnk protein ratio of >0.5 is one of Light???s criteria for an exudate. Heart failure associated misclassifications (by Light???s criteria) may be differentiated as transudative effusions by subsequently evaluating a crgtv-px-sgjeptr albumin gradient (>1.2 g/dL) and/or a jcaug-or-riibt protein gradient (>3.1 g/dL). Result Comment: YARELI [place] COMMENTS:This test was developed and its performance characteristics determined by [facility] [employer]. It has not been cleared or approved by the US Food and Drug Administration. This test was performed in a CLIA certified laboratory and is intended for clinical purposes.Exudates are defined as meeting one of the following criteria: (a) Pleural jfnwb-wf-xggaq protein ratio of >0.5, (b) pleural rprzr-or-bwvxb LDH ratio of >0.6, or (c)a pleural fluid LDH activity that is >2/3 the upper limit of a normal serum LDH activity (Light???s criteria). Performed By: #### L [id number], [id number] ####Estimator And Drafter Supervisor: UNA ARCE ([phone])[facility] [place] [address] pH (Body fld) 7.688 [pH] Normal [facility] Comment on above: Performed By: #### L [id number], [id number], [id number], [id number] ####Estimator And Drafter Supervisor: ANAHY AVILA ([phone])[facility] ([facility])[address] [place] [address] PHOSPHORUSon 04-09-2025 Phosphate [Mass/Vol] 3.5 mg/dL Normal 2.3-4.7 [facility] Comment on above: Performed By: #### L [id number], [id number], LAB17 ####Estimator And Drafter Supervisor: UNA ARCE ([phone])[facility] [place] [address] PROTEIN BODY FLUIDon 025 PROTEIN, BODY FLUID 2.3 g/dL Normal [facility] Comment on above: Performed By: #### L [id number], [id number], [id number], [id number] ####Estimator And Drafter Supervisor: ANAHY [phone])[facility] ([facility])[address] [place] [address] PROTEIN, BODY FLUID 2.5 g/dL Normal [facility] Comment on above: Performed By: #### L AB196, WEY059, [id number], [id number] ####Estimator And Drafter Supervisor: ANAHY AVILA ([phone])[facility] ([facility])[address] [place] [address] [place] Phosphate [Moles/Vol]on Phosphate [Mass/Vol] 3.5 mg/dL 2.3 - 4 .7 mg/dL [facility] Progress Noteon 04-09-2025 Progress Note [facility] Progress Note [facility] Progress [facility] Normal [facility] Progress [facility] Normal [facility] TOTAL PROTEINon 04-09-2025 Protein [Mass/Vol] 5.9 g/dL Low 6.4-8.3 [facility] Comment on above: Result Comment: Seru m protein values are higher than plasma values. Samples from recumbent persons are lower by up to 0.5 g/dL as compared to ambulatory persons. After 60 years values are lower by up to 0.2 g/dL. Performed By: #### L AB118, LAB96 ####Estimator And Drafter Supervisor: UNA ARCE ([phone])[facility] ([facility])[address] [place] [address] XR CHEST 1 VIEWon 04-09-2025 XR CHEST 1 VIEW [facility] XR Chest Single viewon 04-09 [facility] Radiology Study observation (narrative) [facility] Radiology Study observation (narrative) [facility] Radiology Study observation (narrative) Lynette Balderrama alth XR Chest Single viewOrdered By: Gary Kay on 04-09-2025 [facility] Work Phone: XR Chest Single viewOrdered By: Sis Collins on 04-09-2025 [facility] Work Phone: XR Chest Single viewOrdered By: Kev Mattson on 04-09-2025 [facility] Work Phone: [phone] 04-08-2025 [id number] Attempted to insert garcía. Urojet injected. Unable to visualize meatus. Attempted x1 to insert garcía without success. Normal [facility] [id number] Normal [facility] [id number] 04-08-2025 [id number] Normal [facility] BLOOD GAS ARTERIALon 025 AMOUNT OF OXYGEN .40 Normal [facility] Comment on above: Performed By: #### L [id number] ####Estimator And Drafter Supervisor: UNA ARCE ([phone])[facility] [place] [address] Base excess Calc (Bld) [Moles/Vol] 11.2 mmol/L High -3.0-3.0 [facility] Comment on above: Performed By: #### L [id number] ####Estimator And Drafter Supervisor: UNA ARCE ([phone])[facility] (SBAB)[address] [place] [address] CO2 [Moles/Vol] 41.2 mmol/L High 22.0-28.0 [facility] Comment on above: Performed By: #### L [id number] ####Estimator And Drafter Supervisor: UNA ARCE ([phone])[facility] (SBAB)[address] [place] [address] HCO3 (Bld) [Moles/Vol] 38.9 mmol/L High 21.0-27.0 [facility] Comment on above: Performed By: #### L [id number] ####Estimator And Drafter Supervisor: UNA ARCE ([phone])[facility] (SB[facility])[address] [place] [address] Hemoglobin (Bld) [Mass/Vol] 8.4 g/dL Low Screen only [facility] Comment on above: Performed By: #### L [id number] ####Estimator And Drafter Supervisor: UNA ARCE ([phone])[facility] [place] (SB[facility])[address] OXYGEN SATURATION (%) IN ARTERIAL BLOOD 97.0 % Normal 97.0-99.0 [facility] Comment on above: Performed By: #### L [id number] ####Estimator And Drafter Supervisor: UNA ARCE ([phone])[facility] (SB[facility]AB)[address] PCO2 ARTERIAL 75.1 mm Hg High 35.0-48.0 [facility] Comment on above: Performed By: #### L [id number] ####Estimator And Drafter Supervisor: UNA ARCE ([phone])[facility] ([facility])[address] PH ARTERIAL 7.332 Low 7.350-7.450 [facility] Comment on above: Performed By: #### L [id number] ####Estimator And Drafter Supervisor: UNA ARCE ([phone])[facility] (HL[facility])[address] PO2 ARTERIAL 104.0 mm Hg Normal 83.0-108.0 [facility] Comment on above: Performed By: #### L [id number] ####Estimator And Drafter Supervisor: UNA ARCE ([phone])[facility] (HL[facility])[address] SOURCE OF OXYGEN Non-Invasive Ventilator Normal [facility] Comment on above: Performed By: #### L [id number] ####Estimator And Drafter Supervisor: UNA ARCE ([phone])[facility] (SBHLAB)[address] AMOUNT OF OXYGEN 4 liters Normal [facility] Comment on above: Performed By: #### L [id number] ####Estimator And Drafter Supervisor: UNA ARCE ([phone])[facility] (SBHLAB)[address] Base excess Calc (Bld) [Moles/Vol] 9.9 mmol/L High -3.0-3.0 [facility] Comment on above: Performed By: #### L [id number] ####Estimator And Drafter Supervisor: UNA ARCE ([phone])[facility] [place] (SB[facility])[address] CO2 [Moles/Vol] 40.6 mmol/L High 22.0-28.0 [facility] Comment on above: Performed By: #### L [id number] ####Estimator And Drafter Supervisor: UNA ARCE ([phone])[facility] [place] (SB[facility])[address] HCO3 (Bld) [Moles/Vol] 38.2 mmol/L High 21.0-27.0 [facility] Comment on above: Performed By: #### L [id number] ####Estimator And Drafter Supervisor: UNA ARCE ([phone])[facility] (SBHLAB)[address] Hemoglobin (Bld) [Mass/Vol] 8.6 g/dL Low Screen only [facility] Comment on above: Performed By: #### L [id number] ####Estimator And Drafter Supervisor: UNA ARCE ([phone])[facility] (SBHLAB)[address] OXYGEN SATURATION (%) IN ARTERIAL BLOOD 96.1 % Low 97.0-99.0 [facility] Comment on above: Performed By: #### L [id number] ####Estimator And Drafter Supervisor: UNA ARCE ([phone])[facility] (SBHLAB)[address] PCO2 ARTERIAL 80.1 mm Hg Critically high 35.0-48.0 [facility] Comment on above: Performed By: #### L [id number] ####Estimator And Drafter Supervisor: UNA ARCE ([phone])[facility] [place] ([place])[address] PH ARTERIAL 7.296 Low 7.350-7.450 [facility] Comment on above: Performed By: #### L [id number] ####Estimator And Drafter Supervisor: UNA ARCE ([phone])[facility]ITALAngel SANCHEZFOUR CORN[facility] REG[facility] HEALTH CENTERMarisol (SBHLAB)[address] PO2 ARTERIAL 92.0 mm Hg Normal 83.0-108.0 [facility] Comment on above: Performed By: #### L [id number] ####Estimator And Drafter Supervisor: UNA YAZMIN ([phone])[facility]HEZFOUR [facility]ERN (SBHLAB)[address] SOURCE OF OXYGEN Nasal Cannula (LPM) Normal [facility] Comment on above: Performed By: #### L [id number] ####Estimator And Drafter Supervisor: UNA ARCE ([phone])[facility] LAUR[facility] (SBHLAB)[address] CBC W Auto Differential pane l (Bld)on 04-08-2025 Erythrocyte distribution width (RBC) [Ratio] 21.1 % High 11.5 - 15.0 % [employer] Hematocrit (Bld) [Volume fraction] 25.9 % Low 40.0 - 52.0 % [employer] Hemoglobin (Bld) [Mass/Vol] 7.2 g/dL Low 13.0 - 18.0 g/dL [facility] MCH (RBC) [Entitic mass] 22.3 pg Low 26. 0 - 34.0 pg [facility] MCHC (RBC) [Mass/Vol] 27.8 % Low 30.5 - 36.0 % [employer] MCV (RBC) [Entitic vol] 80.2 fL 77.0 - 99.0 fL [employer] [facility] Platelet mean volume (Bld) [Entitic vol] 9.9 fL 9.0 - 12.7 fL [employer] [facility] Platelets (Bld) [#/Vol] 314 10*3/uL 140 - 440 10*3/uL [employer] [facility] RBC (Bld) [#/Vol] 3.23 10*6/uL Low 4.40 - 5.9 0 10*6/uL [employer] [facility] WBC (Bld) [#/Vol] 13 10*3/uL High 3.6 - 10.7 10*3/uL [employer] [facility] CBC WITH AUTO DIFFERENTIALon 04-08-2025 Erythrocyte distribution width (RBC) [Ratio] 21.1 % High 11.5-15.0 [facility] Comment on above: Performed By: #### L [id number], [id number] ####Estimator And Drafter Supervisor: UNA ARCE ([phone])[facility] (SBHLAB)[address] Hematocrit (Bld) [Volume fraction] 25.9 % Low 40.0-52.0 [facility] Comment on above: Performed By: #### L [id number], [id number] ####Estimator And Drafter Supervisor: UNA ARCE ([phone])[facility] Hemoglobin (Bld) [Mass/Vol] 7.2 g/dL Low 13.0-18.0 [facility] Comment on above: Performed By: #### L [id number], [id number] ####Estimator And Drafter Supervisor: UNA ARCE ([phone])[facility] (SBAB)[address] [place] [address] MCH (RBC) [Entitic mass] 22.3 pg Low 26.0-34.0 [facility] Comment on above: Performed By: #### L [id number], [id number] ####Estimator And Drafter Supervisor: UNA ARCE ([phone])[facility])[address] [place] [address] MCHC 27.8 % Low 30.5-36.0 [facility] Comment on above: Performed By: #### L [id number], [id number] ####Estimator And Drafter Supervisor: UNA ARCE ([phone])[facility])[address] MCV (RBC) [Entitic vol] 80.2 fL Normal 77.0-99.0 [facility] Comment on above: Performed By: #### L [id number], [id number] ####Estimator And Drafter Supervisor: UNA ARCE ([phone])[facility] LAURAFOUR CORNERS [facility]ERN (SBHLAB)[address] Platelet mean volume (Bld) [Entitic vol] 9.9 fL Normal 9.0-12.7 [facility] Comment on above: Performed By: #### L [id number], [id number] ####Estimator And Drafter Supervisor: UNA ARCE ([phone])[facility]BF[facility] (SBHLAB)[address] Platelets (Bld) [#/Vol] 314 10*3/uL Normal 140-440 [facility] Comment on above: Performed By: #### L [id number], [id number] ####Estimator And Drafter Supervisor: UNA ARCE ([phone])[facility] (SB[facility])[address] RBC (Bld) [#/Vol] 3.23 10*6/uL Low 4.40-5.90 [facility] Comment on above: Performed By: #### L [id number], [id number] ####Estimator And Drafter Supervisor: UNA ARCE ([phone])[facility] (SBHLAB)[address] WBC (Bld) [#/Vol] 13.0 10*3/uL High 3.6-10.7 [facility] Comment on above: Performed By: #### L [id number], [id number] ####Estimator And Drafter Supervisor: UNA ARCE ([phone])[facility] (SB[facility]AB)[address] COMPREHENSIVE METABOLIC PANE Anant 04-08-2025 Albumin [Mass/Vol] 2.4 g/dL Low 3.4-4.8 [facility] Comment on above: Performed By: #### L AB103, LAB17 ####Estimator And Drafter Supervisor: UNA ARCE ([phone])[facility] (SBHLAB)[address] ALP [Catalytic activity/Vol] 57 U/L Normal 40-150 [facility] Comment on above: Performed By: #### L AB103, LAB17 ####Estimator And Drafter Supervisor: UNA ARCE ([phone])[facility] (SB[facility])[address] ALT [Catalytic activity/Vol] U/L Normal <40 [facility] Comment on above: Performed By: #### L AB103, LAB17 ####Estimator And Drafter Supervisor: UNA STAUFFERMELANIE ([phone])[facility] (SBHLAB)[address] Anion gap [Moles/Vol] 10 mmol/L Normal 3-13 [facility] Comment on above: Performed By: #### L AB103, LAB17 ####Estimator And Drafter Supervisor: UNA STAUFFERMELANIE ([phone])[facility] (SB[facility])[address] AST [Catalytic activity/Vol] 21 U/L Normal <34 [facility] Comment on above: Performed By: #### L AB103, LAB17 ####Estimator And Drafter Supervisor: UNA STAUFFERMELANIE ([phone])[facility] (SBHLAB)[address] Bilirubin [Mass/Vol] 0.6 mg/dL Normal <1.2 [facility] Comment on above: Performed By: #### L AB103, LAB17 ####Estimator And Drafter Supervisor: UNA ARCE ([phone])[facility] (SB[facility])[address] Calcium [Mass/Vol] 7.9 mg/dL Low 8.8-10.0 [facility] Comment on above: Performed By: #### L AB103, LAB17 ####Estimator And Drafter Supervisor: UNA ARCE ([phone])[facility] ([facility])[address] Chloride [Moles/Vol] 99 mmol/L Normal 98-107 [facility] Comment on above: Performed By: #### L AB103, LAB17 ####Estimator And Drafter Supervisor: UNA ARCE ([phone])[facility] (SBHLAB)[address] CO2 [Moles/Vol] 33 mmol/L High 23-31 [facility] Comment on above: Performed By: #### L AB103, LAB17 ####Estimator And Drafter Supervisor: UNA ARCE ([phone])[facility]ITALAngel [facility]BFOUR [facility] (SBHLAB)[address] Creatinine [Mass/Vol] 1.78 mg/dL High 0.72-1.25 [facility] Comment on above: Performed By: #### L DERICK, LAB17 ####Estimator And Drafter Supervisor: UNA ARCE ([phone])[facility] (SBHLAB)[address] GLOMERULAR FILTRATION RATE ML/MIN/1.73 SQ M.PREDICTED 36.0 mL/min/1.73m*2 Low >60.0 [facility] Comment on above: Result Comment: Calc ulation based on the Chronic Kidney Disease Epidemiology Collaboration (CKD-EPI) equation refit without adjustment for race Performed By: #### L DERICK, LAB17 ####Estimator And Drafter Supervisor: UNA ARCE ([phone])[facility] [place] (SBHLAB)[address] Glucose [Mass/Vol] 99 mg/dL Normal 82-115 [facility] Comment on above: Performed By: #### L AB103, LAB17 ####Estimator And Drafter Supervisor: UNA ARCE ([phone])[facility] (SBHLAB)[address] [place] [address] [place] Potassium [Moles/Vol] 3.4 mmol/L Low 3.5-5.1 [facility] Comment on above: Result Comment: [facility] potassium values may be up to 0.5 mmol/L lower than serum values. Performed By: #### L AB103, LAB17 ####Estimator And Drafter Supervisor: UNA ARCE ([phone])[facility] (SBHLAB)[address] Protein [Mass/Vol] 5.8 g/dL Low 6.4-8.3 [facility] Comment on above: Performed By: #### L AB103, LAB17 ####Estimator And Drafter Supervisor: UNA ARCE ([phone])[facility] [place] (SBHLAB)[address] Sodium [Moles/Vol] 142 mmol/L Normal 136-145 [facility] Comment on above: Performed By: #### L AB103, LAB17 ####Estimator And Drafter Supervisor: UNA ARCE ([phone])[facility] [place] (SBHL[facility])[address] Urea nitrogen [Mass/Vol] 26 mg/dL High 9-23 [facility] Comment on above: Performed By: #### L AB103, LAB17 ####Estimator And Drafter Supervisor: UNA ARCE ([phone])[facility] [place] (SBHLAB)[address] Comprehensive metabolic 1998 panelon 04-08-2025 Albumin [Mass/Vol] 2.4 g/dL Low 3.4 - 4.8 g/dL [facility] ALP [Catalytic activity/Vol] 57 U/L 40 - 150 U/L [facility] ALT [Catalytic activity/Vol] U/L NINF - 40 U/L [facility] Anion gap [Moles/Vol] 10 mmol/L 3 - 13 mmol/L [facility] AST [Catalytic activity/Vol] 21 U/L NINF - 34 U/L [facility] Bilirubin [Mass/Vol] 0.6 mg/dL NINF - 1.2 mg/dL [facility] Calcium [Mass/Vol] 7.9 mg/dL Low 8.8 - 10. 0 mg/dL [facility] Chloride [Moles/Vol] 99 mmol/L 98 - 10 7 mmol/L [facility] CO2 [Moles/Vol] 33 mmol/L High 23 - 31 mmol/L [facility] Creatinine [Mass/Vol] 1.78 mg/dL High 0.72 - 1.25 mg/dL [facility] GFR/1.73 sq M.predicted (S/P/Bld) [Vol rate/Area] 36 mL/min Low - PINF [facility] Glucose [Mass/Vol] 99 mg/dL 82 - 115 mg/dL [facility] Interpretation and review of laboratory results Abnormal [facility] Potassium [Moles/Vol] 3.4 mmol/L Low 3.5 - 5.1 mmol/L [facility] Protein [Mass/Vol] 5.8 g/dL Low 6.4 - 8.3 g/dL [facility] Sodium [Moles/Vol] 142 mmol/L 136 - 145 mmol/L [facility] Urea nitrogen [Mass/Vol] 26 mg/dL High 9 - 23 mg/d L [facility] [facility] Consult Normal [facility] - Chemistry and C hemistry - challengeOrdered By: Renay Chan on 04-08-2025 Base excess Calc (Bld) [Moles/Vol] 11.2 mmol/L High -3.0 - 3.0 mmol/L [facility] CO2 (Bld) [Partial pressure] 75.1 mm[Hg] High [facility] CO2 [Moles/Vol] 41.2 mmol/L High 22.0 - 28.0 mmol/L [facility] HCO3 (Bld) [Moles/Vol] 38.9 mmol/L High 21.0 - 27.0 mmol/L [facility] Oxygen (Bld) [Partial pressure] 104 mm[Hg] [facility] pH (Bld) 7.332 [pH] Low 7.350 - 7.450 [facility] - Chemistry and C hemistry - challengeOrdered By: Sallie Powell on 04-08-2025 Base excess Calc (Bld) [Moles/Vol] 9.9 mmol/L High -3.0 - 3.0 mmol/L [facility] CO2 (Bld) [Partial pressure] 80.1 mm[Hg] Critically high [facility] CO2 [Moles/Vol] 40.6 mmol/L High 22.0 - 28.0 mmol/L [facility] HCO3 (Bld) [Moles/Vol] 38.2 mmol/L High 21.0 - 27.0 mmol/L [facility] Oxygen (Bld) [Partial pressure] 92 mm[Hg] [facility] pH (Bld) 7.296 [pH] Low 7.350 - 7.450 [facility] - Chemistry and C hemistry - challengeon 04-08-2025 Glucose [Mass/Vol] 100 mg/dL 70 - 100 mg/dL [facility] Magnesium [Mass/Vol] 1.6 mg/dL 1.6 - 2 .6 mg/dL [facility] - Hematology and Cell countsOrdered By: Renay Chan on 04-08-2025 Hemoglobin (Bld) [Mass/Vol] 8.4 g/dL Low 13.5 - 17.5 g/dl [facility] - Hematology and Cell countsOrdered By: Sallie Powell on 04-08-2025 Hemoglobin (Bld) [Mass/Vol] 8.6 g/dL Low 13.5 - 17.5 g/dl [facility] - Hematology and Cell countson 04-08-2025 Anisocytosis Ql (Bld) Moderate Abnormal (none) [facility] Basophils (Bld) [#/Vol] 0.1 10*3/uL 0.0 - 0.2 10*3/uL [facility] Basophils/100 WBC (Bld) 1 % 0 - 2 % [facility] Hypochromia Ql (Bld) Moderate Abnormal (none) [facility] Lymphocytes (Bld) [#/Vol] 1.8 10*3/uL 1.0 - 4.3 10*3/uL [facility] Lymphocytes/100 WBC (Bld) 14 % Low 15 - 45 % [facility] Monocytes (Bld) [#/Vol] 1.6 10*3/uL High 0.0 - 0.9 10*3/uL [facility] Monocytes/100 WBC (Bld) 12 % 5 - 13 % [facility] Neutrophils (Bld) [#/Vol] 9.6 10*3/uL High 1.8 - 7.5 10*3/uL [facility] Ovalocytes LM Ql (Bld) Slight Abnormal (none) [facility] Poikilocytosis LM Ql (Bld) Moderate Abnormal (none) [facility] RBC morphology finding Nom (Bld) abnormal [facility] Segmented neutrophils/100 WBC (Bld) 74 % 38 - 82 % [facility] Stomatocytes LM Ql (Bld) Moderate Abnormal (none) [facility] MAGNESIUMon 04-08-2025 Magnesium [Mass/Vol] 1.6 mg/dL Normal 1.6-2.6 [facility] Comment on above: Result Comment: YARELI [place] COMMENTS:Higher values can be expected in females during menses. Performed By: #### L [id number], [id number] ####Estimator And Drafter Supervisor: UNA ARCE ([phone])[facility] [place] ([facility])[address] MANUAL DIFFERENTIAL (CELLAVI BANDAR)on 04-08-2025 ANISOCYTOSIS PRESENCE IN BLOOD BY LIGHT MICROSCOPY Moderate Abnormal (none) [facility] Comment on above: Performed By: #### L [id number], [id number] ####Estimator And Drafter Supervisor: UNA ARCE ([phone])[facility] [place] ([facility])[address] BAND NEUTROPHILS TOTAL PER COUNTED LEUKOCYTES BY MANUAL COUNT Normal [facility] Comment on above: Performed By: #### L [id number], [id number] ####Estimator And Drafter Supervisor: UNA ARCE ([phone])[facility] (SB[facility])[address] [place] [address] [place] BASOPHILS (10*3/UL) IN BLOOD-CELLAVISION 0.1 10*3/uL Normal 0.0-0.2 [facility] Comment on above: Performed By: #### L [id number], [id number] ####Estimator And Drafter Supervisor: UNA ARCE ([phone])[facility] [place] ([facility])[address] [place] [address] [place] BASOPHILS TOTAL PER COUNTED LEUKOCYTES BY MANUAL COUNT 1 Normal [facility] Comment on above: Performed By: #### L [id number], [id number] ####Estimator And Drafter Supervisor: UNA ARCE ([phone])[facility] [place] ([facility])[address] [place] [address] [place] BASOPHILS/100 LEUKOCYTES IN BLOOD-CELLAVISION 1 % Normal 0-2 [facility] Comment on above: Performed By: #### L [id number], [id number] ####Estimator And Drafter Supervisor: UNA ARCE ([phone])[facility] [place] (SBHLAB)[address] [place] [address] [place] BLASTS TOTAL PER COUNTED LEUKOCYTES BY MANUAL COUNT Normal [facility] Comment on above: Performed By: #### L [id number], [id number] ####Estimator And Drafter Supervisor: UNA MOHRCER ([phone])[facility] [place] (SBHLAB)[address] [place] [address] [place] EOSINOPHILS TOTAL PER COUNTED LEUKOCYTES BY MANUAL COUNT Normal [facility] Comment on above: Performed By: #### L [id number], [id number] ####Estimator And Drafter Supervisor: UNA ARCE ([phone])[facility] [place] ([facility])[address] HYPOCHROMIA (PRESENCE) IN BLOOD BY LIGHT MICROSCOPY Moderate Abnormal (none) [facility] Comment on above: Performed By: #### L [id number], [id number] ####Estimator And Drafter Supervisor: UNAANJEL ARCE ([phone])[facility] [place] ([facility])[address] [place] [address] [place] LYMPHOCYTES (10*3/UL) IN BLOOD-CELLAVISION 1.8 10*3/uL Normal 1.0-4.3 [facility] Comment on above: Performed By: #### L [id number], [id number] ####Estimator And Drafter Supervisor: UNAANJEL ARCE ([phone])[facility] [place] ([facility])[address] [place] [address] [place] LYMPHOCYTES TOTAL PER COUNTED LEUKOCYTES BY MANUAL COUNT 14 Normal [facility] Comment on above: Performed By: #### L [id number], [id number] ####Estimator And Drafter Supervisor: UNA YAZMIN ([phone])[facility] [place] ([facility])[address] [place] [address] [place] LYMPHOCYTES/100 LEUKOCYTES IN BLOOD-CELLAVISION 14 % Low 15-45 [facility] Comment on above: Performed By: #### L [id number], [id number] ####Estimator And Drafter Supervisor: UNA ARCE ([phone])[facility] [place] (SBHLAB)[address] [place] [address] [place] METAMYELOCYTES TOTAL PER COUNTED LEUKOCYTES BY MANUAL COUNT [facility] Comment on above: Performed By: #### L [id number], [id number] ####Estimator And Drafter Supervisor: UNA STAUFFERMELANIE ([phone])[facility] [place] ([facility])[address] [place] [address] [place] MONOCYTES (10*3/UL) IN BLOOD-CELLAVISION 1.6 10*3/uL High 0.0-0.9 [facility] Comment on above: Performed By: #### L [id number], [id number] ####Estimator And Drafter Supervisor: UNA STAUFFERMELANIE ([phone])[facility] [place] ([facility])[address] [place] [address] [place] MONOCYTES TOTAL PER COUNTED LEUKOCYTES BY MANUAL COUNT 12 Normal [facility] Comment on above: Performed By: #### L [id number], [id number] ####Estimator And Drafter Supervisor: UNA STAUFFERMELANIE ([phone])[facility] [place] ([facility])[address] [place] [address] [place] MONOCYTES/100 LEUKOCYTES IN BLOOD-LUCIANA 12 % Normal -13 [facility] Comment on above: Performed By: #### L [id number], [id number] ####Estimator And Drafter Supervisor: UNA ARCE ([phone])[facility] [place] ([facility])[address] [place] [address] [place] MYELOCYTES COUNTED BY MANUAL COUNT [facility] Comment on above: Performed By: #### L [id number], [id number] ####Estimator And Drafter Supervisor: UNA ARCE ([phone])[facility] [place] ([facility])[address] [place] [address] [place] NEUTROPHILS TOTAL PER COUNTED LEUKOCYTES BY MANUAL COUNT 75 Normal [facility] Comment on above: Performed By: #### L [id number], [id number] ####Estimator And Drafter Supervisor: UNA ARCE ([phone])[facility] [place] (SBHLAB)[address] [place] [address] [place] OVALOCYTES PRESENCE IN BLOOD BY LIGHT MICROSCOPY Slight Abnormal (none) [facility] Comment on above: Performed By: #### L [id number], [id number] ####Estimator And Drafter Supervisor: UNA ARCE ([phone])[facility] [place] ([facility])[address] [place] [address] [place] POIKILOCYTOSIS (PRESENCE) IN BLOOD BY LIGHT MICROSCOPY Moderate Abnormal (none) [facility] Comment on above: Performed By: #### L [id number], [id number] ####Estimator And Drafter Supervisor: UNA ARCE ([phone])[facility] [place] ([facility])[address] [place] [address] [place] PROMYELOCYTES TOTAL PER COUNTED LEUKOCYTES BY MANUAL COUNT Normal [facility] Comment on above: Performed By: #### L [id number], [id number] ####Estimator And Drafter Supervisor: UNA ARCE ([phone])[facility] [place] ([facility])[address] [place] [address] [place] RBC MORPHOLOGY IN BLOOD abnormal Normal S [facility] Comment on above: Performed By: #### L [id number], [id number] ####Estimator And Drafter Supervisor: UNA ARCE ([phone])[facility] [place] ([facility])[address] [place] [address] [place] SEGMENTED NEUTROPHILS (10*3/UL) IN BLOOD-CELLAVISION 9.6 10*3/uL High 1.8-7.5 [facility] Comment on above: Performed By: #### L [id number], [id number] ####Estimator And Drafter Supervisor: UNA ARCE ([phone])[facility] [place] ([facility])[address] [place] [address] [place] SEGMENTED NEUTROPHILS/100 LEUKOCYTES-CE 74 % Normal 38-82 [facility] Comment on above: Performed By: #### L [id number], [id number] ####Estimator And Drafter Supervisor: UNA ARCE ([phone])[facility] [place] (SBHLAB)[address] STOMATOCYTES IN BLOOD BY LIGHT MICROSCOPY Moderate Abnormal (none) [facility] Comment on above: Performed By: #### L [id number], [id number] ####Estimator And Drafter Supervisor: UNA ARCE ([phone])[facility] (SBHLAB)[address] UNCLASSIFIED CELLS TOTAL PER COUNTED LEUKOCYTES BY MANUAL COUNT Normal [facility] Comment on above: Performed By: #### L [id number], [id number] ####Estimator And Drafter Supervisor: UNA ARCE ([phone])[facility] (SBHLAB)[address] VARIANT LYMPHOCYTES TOTAL PER COUNTED LEUKOCYTES BY MANUAL COUNT Normal [facility] Comment on above: Performed By: #### L [id number], [id number] ####Estimator And Drafter Supervisor: UNA ARCE ([phone])[facility] (SBHLAB)[address] Magnesium [Mass/Vol]on 04-08 Interpretation and review of laboratory results Normal [facility] No Panel InformationOrdered By: Renay Chan on 04-08-2025 Amount Of Oxygen 0.40 [facility] Interpretation and review of laboratory results Abnormal [facility] Source Of Oxygen Non-Invasive Ventilator [facility] No Panel InformationOrdered By: Sallie Powell on 04-08-2025 Amount Of Oxygen 4 liters [facility] Interpretation and review of laboratory results Abnormal [facility] Source Of Oxygen Nasal Cannula (LPM) [facility] No Panel Informationon 04-08 Interpretation and review of laboratory results Normal [facility] Basophils Manual 1 [facility] Interpretation and review of laboratory results Abnormal [facility] Lymphocytes Manual 14 [facility] Monocytes Manual 12 [facility] Neutrophils Manual 75 [facility] Progress Noteon 04-08-2025 Progress Note Normal [facility] Progress [facility] Progress Note Normal [facility] Progress Note Normal [facility] Progress Note Normal [facility] XR Chest Single viewon 04-08 [facility] Radiology Study observation (narrative) [facility] XR Chest Single viewOrdered By: Nelson Sow on 04-08-2025 [facility] Work Phone: CBC W Auto Differential pane l (Bld)Ordered By: Sharita Beck on 04-07-2025 Erythrocyte distribution width (RBC) [Ratio] 20.5 % High 11.5 - 15.0 % [facility] Hematocrit (Bld) [Volume fraction] 27.2 % Low 40.0 - 52.0 % [facility] Hemoglobin (Bld) [Mass/Vol] 7.4 g/dL Low 13.0 - 18.0 g/dL [facility] MCH (RBC) [Entitic mass] 21.8 pg Low 26. 0 - 34.0 pg [facility] MCHC (RBC) [Mass/Vol] 27.2 % Low 30.5 - 36.0 % [facility] MCV (RBC) [Entitic vol] 80 fL 77.0 - 99.0 fL [facility] Platelet mean volume (Bld) [Entitic vol] 9.8 fL 9.0 - 12.7 fL [facility] Platelets (Bld) [#/Vol] 346 10*3/uL 140 - 440 10*3/uL [facility] RBC (Bld) [#/Vol] 3.4 10*6/uL Low 4.40 - 5.9 0 10*6/uL [facility] WBC (Bld) [#/Vol] 11.5 10*3/uL High 3.6 - 10.7 10*3/uL [facility] CBC WITH AUTO DIFFERENTIALon 04-07-2025 Erythrocyte distribution width (RBC) [Ratio] 20.5 % High 11.5-15.0 [facility] Comment on above: Performed By: #### L [id number], [id number] ####Estimator And Drafter Supervisor: UNA ARCE ([phone])[facility] ([facility])[address] [place] [address] Hematocrit (Bld) [Volume fraction] 27.2 % Low 40.0-52.0 [facility] Comment on above: Performed By: #### L [id number], [id number] ####Estimator And Drafter Supervisor: UNA ARCE ([phone])[facility] [place]ST[facility] (SBHLAB)[address] Hemoglobin (Bld) [Mass/Vol] 7.4 g/dL Low 13.0-18.0 [facility] Comment on above: Performed By: #### L [id number], [id number] ####Estimator And Drafter Supervisor: UNA ARCE ([phone])[facility] (SB[facility])[address] MCH (RBC) [Entitic mass] 21.8 pg Low 26.0-34.0 [facility] Comment on above: Performed By: #### L [id number], [id number] ####Estimator And Drafter Supervisor: UNA ARCE ([phone])[facility] (SB[facility])[address] MCHC 27.2 % Low 30.5-36.0 [facility] Comment on above: Performed By: #### L [id number], [id number] ####Estimator And Drafter Supervisor: UNA ARCE ([phone])[facility] ([facility])[address] MCV (RBC) [Entitic vol] 80.0 fL Normal 77.0-99.0 S [facility] Comment on above: Performed By: #### L [id number], [id number] ####Estimator And Drafter Supervisor: UNA ARCE ([phone])[facility] ([facility])[address] Platelet mean volume (Bld) [Entitic vol] 9.8 fL Normal 9.0-12.7 [facility] Comment on above: Performed By: #### L [id number], [id number] ####Estimator And Drafter Supervisor: UNA ARCE ([phone])[facility] (SB[facility]AB)[address] Platelets (Bld) [#/Vol] 346 10*3/uL Normal 140-440 [facility] Comment on above: Performed By: #### L [id number], [id number] ####Estimator And Drafter Supervisor: UNA ARCE ([phone])[facility] [place] (SBHLAB)[address] RBC (Bld) [#/Vol] 3.40 10*6/uL Low 4.40-5.90 [facility] Comment on above: Performed By: #### L [id number], [id number] ####Estimator And Drafter Supervisor: UNA ARCE ([phone])[facility] [place] (SBHLAB)[address] WBC (Bld) [#/Vol] 11.5 10*3/uL High 3.6-10.7 [facility] Comment on above: Performed By: #### L [id number], [id number] ####Estimator And Drafter Supervisor: UNA ARCE ([phone])[facility] [place] (SBHLAB)[address] COMPREHENSIVE METABOLIC PANE Anant 04-07-2025 Albumin [Mass/Vol] 2.4 g/dL Low 3.4-4.8 [facility] Comment on above: Performed By: #### L [id number], [id number] ####Estimator And Drafter Supervisor: UNA ARCE ([phone])[facility] [place] (SBHLAB)[address] ALP [Catalytic activity/Vol] 57 U/L Normal 40-150 [facility] Comment on above: Performed By: #### L [id number], [id number] ####Estimator And Drafter Supervisor: UNA ARCE ([phone])[facility] (SB[facility])[address] ALT [Catalytic activity/Vol] U/L Normal <40 [facility] Comment on above: Performed By: #### L [id number], [id number] ####Estimator And Drafter Supervisor: UNA ARCE ([phone])[facility] [place] (SBHLAB)[address] Anion gap [Moles/Vol] 14 mmol/L High 3-13 [facility] Comment on above: Performed By: #### L [id number], [id number] ####Estimator And Drafter Supervisor: UNA ARCE ([phone])[facility] [place] ([facility])[address] AST [Catalytic activity/Vol] 23 U/L Normal <34 [facility] Comment on above: Performed By: #### L AB17, [id number] ####Estimator And Drafter Supervisor: UNA ARCE ([phone])[facility] [place] ([facility])[address] Bilirubin [Mass/Vol] 0.7 mg/dL Normal <1.2 [facility] Comment on above: Performed By: #### L AB17, [id number] ####Estimator And Drafter Supervisor: UNA ARCE ([phone])[facility] [place] ([facility])[address] Calcium [Mass/Vol] 7.9 mg/dL Low 8.8-10.0 [facility] Comment on above: Performed By: #### L AB17, [id number] ####Estimator And Drafter Supervisor: UNA ARCE ([phone])[facility] [place] ([facility])[address] [place] [address] [place] Chloride [Moles/Vol] 98 mmol/L Normal 98-107 [facility] Comment on above: Performed By: #### L AB17, [id number] ####Estimator And Drafter Supervisor: UNA ARCE ([phone])[facility] [place] ([facility])[address] [place] [address] [place] CO2 [Moles/Vol] 31 mmol/L Normal 23-31 [facility] Comment on above: Performed By: #### L AB17, [id number] ####Estimator And Drafter Supervisor: UNA ARCE ([phone])[facility] [place] (SBHL[facility])[address] Creatinine [Mass/Vol] 1.63 mg/dL High 0.72-1.25 [facility] Comment on above: Performed By: #### L AB17, [id number] ####Estimator And Drafter Supervisor: UNA ARCE ([phone])[facility]N (SB[facility])[address] GLOMERULAR FILTRATION RATE ML/MIN/1.73 SQ M.PREDICTED 40.0 mL/min/1.73m*2 Low >60.0 [facility] Comment on above: Result Comment: Calc ulation based on the Chronic Kidney Disease Epidemiology Collaboration (CKD-EPI) equation refit without adjustment for race Performed By: #### L AB17, [id number] ####Estimator And Drafter Supervisor: UNA ARCE ([phone])[facility] [place] ([facility])[address] Glucose [Mass/Vol] 88 mg/dL Normal 82-115 [facility] Comment on above: Performed By: #### L AB17, [id number] ####Estimator And Drafter Supervisor: UNA ARCE ([phone])[facility] [place] (SB[facility])[address] Potassium [Moles/Vol] 3.6 mmol/L Normal 3.5-5.1 [facility] Comment on above: Result Comment: [facility] potassium values may be up to 0.5 mmol/L lower than serum values. Performed By: #### L AB17, [id number] ####Estimator And Drafter Supervisor: UNA ARCE ([phone])[facility] ([facility])[address] Protein [Mass/Vol] 5.7 g/dL Low 6.4-8.3 [facility] Comment on above: Performed By: #### L AB17, [id number] ####Estimator And Drafter Supervisor: UNA ARCE ([phone])[facility] (SBHL[facility])[address] [place] [address] [place] Sodium [Moles/Vol] 143 mmol/L Normal 136-145 [facility] Comment on above: Performed By: #### L AB17, [id number] ####Estimator And Drafter Supervisor: UNA ARCE ([phone])[facility] (SBHLAB)[address] Urea nitrogen [Mass/Vol] 26 mg/dL High 9-23 [facility] Comment on above: Performed By: #### L AB17, [id number] ####Estimator And Drafter Supervisor: UNA ARCE ([phone])[facility] (SBHL[facility])[address] Comprehensive metabolic 1998 panelon 04-07-2025 Albumin [Mass/Vol] 2.4 g/dL Low 3.4 - 4.8 g/dL [facility] ALP [Catalytic activity/Vol] 57 U/L 40 - 150 U/L [facility] ALT [Catalytic activity/Vol] U/L NINF - 40 U/L [facility] Anion gap [Moles/Vol] 14 mmol/L High 3 - 13 mmol/L [facility] AST [Catalytic activity/Vol] 23 U/L NINF - 34 U/L [facility] Bilirubin [Mass/Vol] 0.7 mg/dL NINF - 1.2 mg/dL [facility] Calcium [Mass/Vol] 7.9 mg/dL Low 8.8 - 10. 0 mg/dL [facility] Chloride [Moles/Vol] 98 mmol/L 98 - 10 7 mmol/L [facility] CO2 [Moles/Vol] 31 mmol/L 23 - 31 mmol/L [facility] Creatinine [Mass/Vol] 1.63 mg/dL High 0.72 - 1.25 mg/dL [facility] GFR/1.73 sq M.predicted (S/P/Bld) [Vol rate/Area] 40 mL/min Low - PINF [facility] Glucose [Mass/Vol] 88 mg/dL 82 - 115 mg/dL [facility] Interpretation and review of laboratory results Abnormal [facility] Potassium [Moles/Vol] 3.6 mmol/L 3.5 - 5.1 mmol/L [facility] Protein [Mass/Vol] 5.7 g/dL Low 6.4 - 8.3 g/dL [facility] Sodium [Moles/Vol] 143 mmol/L 136 - 145 mmol/L [facility] Urea nitrogen [Mass/Vol] 26 mg/dL High 9 - 23 mg/d L [facility] Consulton 04-07-2025 Consult Normal [facility] - Chemistry and C hemistry - challengeon 04-07-2025 Magnesium [Mass/Vol] 1.7 mg/dL 1.6 - 2 .6 mg/dL [facility] - Hematology and Cell countson 04-07-2025 Anisocytosis Ql (Bld) Slight Abnormal (none) [facility] Eosinophils (Bld) [#/Vol] 0.3 10*3/uL 0.0 - 0.5 10*3/uL [facility] Eosinophils/100 WBC (Bld) 3 % 0 - 6 % [facility] Hypochromia Ql (Bld) Moderate Abnormal (none) [facility] Lymphocytes (Bld) [#/Vol] 0.9 10*3/uL Low 1.0 - 4.3 10*3/uL [facility] Lymphocytes/100 WBC (Bld) 8 % Low 15 - 45 % [facility] Monocytes (Bld) [#/Vol] 0.8 10*3/uL 0.0 - 0.9 10*3/uL [facility] Monocytes/100 WBC (Bld) 7 % 5 - 13 % [facility] Neutrophils (Bld) [#/Vol] 9.5 10*3/uL High 1.8 - 7.5 10*3/uL [facility] Nucleated RBC/100 WBC (Bld) [Ratio] 1 % 0 - 2 % [facility] Poikilocytosis LM Ql (Bld) Slight Abnormal (none) [facility] RBC morphology finding Nom (Bld) abnormal [facility] Segmented neutrophils/100 WBC (Bld) 83 % High 38 - 82 % [facility] Stomatocytes LM Ql (Bld) Moderate Abnormal (none) [facility] MAGNESIUMon 04-07-2025 Magnesium [Mass/Vol] 1.7 mg/dL Normal 1.6-2.6 [facility] Comment on above: Result Comment: ORDE R COMMENTS:Higher values can be expected in females during menses. Performed By: #### L AB17, [id number] ####Estimator And Drafter Supervisor: UNA ARCE ([phone])[facility] [place] (SBHLAB)[address] [place] [address] [place] MANUAL DIFFERENTIAL (CELLAVI BANDAR)on 04-07-2025 ANISOCYTOSIS PRESENCE IN BLOOD BY LIGHT MICROSCOPY Slight Abnormal (none) [facility] Comment on above: Performed By: #### L [id number], [id number] ####Estimator And Drafter Supervisor: UNA ARCE ([phone])[facility] [place] ([facility])[address] BAND NEUTROPHILS TOTAL PER COUNTED LEUKOCYTES BY MANUAL COUNT Normal [facility] Comment on above: Performed By: #### L [id number], [id number] ####Estimator And Drafter Supervisor: UNA ARCE ([phone])[facility] [place] ([facility])[address] BASOPHILS TOTAL PER COUNTED LEUKOCYTES BY MANUAL COUNT Normal [facility] Comment on above: Performed By: #### L [id number], [id number] ####Estimator And Drafter Supervisor: UNA ARCE ([phone])[facility] [place] ([facility])[address] [place] [address] [place] BLASTS TOTAL PER COUNTED LEUKOCYTES BY MANUAL COUNT Normal [facility] Comment on above: Performed By: #### L [id number], [id number] ####Estimator And Drafter Supervisor: UNA ARCE ([phone])[facility] [place] ([facility])[address] [place] [address] [place] EOSINOPHILS (10*3/UL) IN BLOOD-CELLAVISION 0.3 10*3/uL Normal 0.0-0.5 [facility] Comment on above: Performed By: #### L [id number], [id number] ####Estimator And Drafter Supervisor: UNA ARCE ([phone])[facility] [place] ([facility])[address] [place] [address] [place] EOSINOPHILS TOTAL PER COUNTED LEUKOCYTES BY MANUAL COUNT 3 High 0-1 [facility] Comment on above: Performed By: #### L [id number], [id number] ####Estimator And Drafter Supervisor: UNA STAUFFERMELANIE ([phone])[facility] [place] ([facility])[address] [place] [address] [place] EOSINOPHILS/100 LEUKOCYTES IN BLOOD-CELLAVISION 3 % Normal 0-6 [facility] Comment on above: Performed By: #### L [id number], [id number] ####Estimator And Drafter Supervisor: UNA STAUFFERMELANIE ([phone])[facility] [place] ([facility])[address] [place] [address] [place] HYPOCHROMIA (PRESENCE) IN BLOOD BY LIGHT MICROSCOPY Moderate Abnormal (none) [facility] Comment on above: Performed By: #### L [id number], [id number] ####Estimator And Drafter Supervisor: UNA BERMUDEZPEDRO ([phone])[facility] [place] ([facility])[address] [place] [address] [place] LYMPHOCYTES (10*3/UL) IN BLOOD-CELLAVISION 0.9 10*3/uL Low 1.0-4.3 [facility] Comment on above: Performed By: #### L [id number], [id number] ####Estimator And Drafter Supervisor: UNA STAUFFERMELANIE ([phone])[facility] [place] ([facility])[address] [place] [address] [place] LYMPHOCYTES TOTAL PER COUNTED LEUKOCYTES BY MANUAL COUNT 8 Normal [facility] Comment on above: Performed By: #### L [id number], [id number] ####Estimator And Drafter Supervisor: UNA STAUFFERMELANIE ([phone])[facility] [place] ([facility])[address] [place] [address] [place] LYMPHOCYTES/100 LEUKOCYTES IN BLOOD-CELLAVISION 8 % Low 15-45 [facility] Comment on above: Performed By: #### L [id number], [id number] ####Estimator And Drafter Supervisor: UNA STAUFFERMELANIE ([phone])[facility] [place] ([facility])[address] [place] [address] [place] METAMYELOCYTES TOTAL PER COUNTED LEUKOCYTES BY MANUAL COUNT Normal [facility] Comment on above: Performed By: #### L [id number], [id number] ####Estimator And Drafter Supervisor: UNA STAUFFERMELANIE ([phone])[facility] [place] ([facility])[address] [place] [address] [place] MONOCYTES (10*3/UL) IN BLOOD-CELLAVISION 0.8 10*3/uL Normal 0.0-0.9 [facility] Comment on above: Performed By: #### L [id number], [id number] ####Estimator And Drafter Supervisor: UNA BERMUDEZPEDRO ([phone])[facility] [place] ([facility])[address] [place] [address] [place] MONOCYTES TOTAL PER COUNTED LEUKOCYTES BY MANUAL COUNT 7 Normal [facility] Comment on above: Performed By: #### L [id number], [id number] ####Estimator And Drafter Supervisor: UNA BERMUDEZPEDRO ([phone])[facility] [place] ([facility])[address] [place] [address] [place] MONOCYTES/100 LEUKOCYTES IN BLOOD-LUCIANA 7 % Normal 5-13 [facility] Comment on above: Performed By: #### L [id number], [id number] ####Estimator And Drafter Supervisor: UNA BERMUDEZPEDRO ([phone])[facility] [place] ([facility])[address] MYELOCYTES COUNTED BY MANUAL COUNT [facility] Comment on above: Performed By: #### L [id number], [id number] ####Estimator And Drafter Supervisor: UNA ARCE ([phone])[facility] [place] ([facility])[address] [place] [address] [place] NEUTROPHILS TOTAL PER COUNTED LEUKOCYTES BY MANUAL COUNT 86 Normal [facility] Comment on above: Performed By: #### L [id number], [id number] ####Estimator And Drafter Supervisor: UNA ARCE ([phone])[facility] [place] ([facility])[address] [place] [address] [place] NUCLEATED ERYTHROCYTES/100 LEUKOCTES IN BLOOD-CELLAVISION 1 % Normal 0-2 [facility] Comment on above: Performed By: #### L [id number], [id number] ####Estimator And Drafter Supervisor: UNA ARCE ([phone])[facility] [place] ([facility])[address] [place] [address] [place] POIKILOCYTOSIS (PRESENCE) IN BLOOD BY LIGHT MICROSCOPY Slight Abnormal (none) [facility] Comment on above: Performed By: #### L [id number], [id number] ####Estimator And Drafter Supervisor: UNA ARCE ([phone])[facility] [place] ([facility])[address] [place] [address] [place] PROMYELOCYTES TOTAL PER COUNTED LEUKOCYTES BY MANUAL COUNT Normal [facility] Comment on above: Performed By: #### L [id number], [id number] ####Estimator And Drafter Supervisor: UNA ARCE ([phone])[facility] ([facility])[address] RBC MORPHOLOGY IN BLOOD abnormal Normal [facility] Comment on above: Performed By: #### L [id number], [id number] ####Estimator And Drafter Supervisor: UNA ARCE ([phone])[facility] [place] ([facility])[address] [place] [address] [place] SEGMENTED NEUTROPHILS (10*3/UL) IN BLOOD-CELLAVISION 9.5 10*3/uL High 1.8-7.5 [facility] Comment on above: Performed By: #### L [id number], [id number] ####Estimator And Drafter Supervisor: UNA ARCE ([phone])[facility] [place] ([facility])[address] [place] [address] [place] SEGMENTED NEUTROPHILS/100 LEUKOCYTES-CE 83 % High 38-82 [facility] Comment on above: Performed By: #### L [id number], [id number] ####Estimator And Drafter Supervisor: UNA ARCE ([phone])[facility] [place] ([facility])[address] [place] [address] [place] STOMATOCYTES IN BLOOD BY LIGHT MICROSCOPY Moderate Abnormal (none) [facility] Comment on above: Performed By: #### L [id number], [id number] ####Estimator And Drafter Supervisor: UNA ARCE ([phone])[facility] ([facility])[address] UNCLASSIFIED CELLS TOTAL PER COUNTED LEUKOCYTES BY MANUAL COUNT Normal [facility] Comment on above: Performed By: #### L [id number], [id number] ####Estimator And Drafter Supervisor: UNA BERMUDEZPEDRO ([phone])[facility] ([facility])[address] VARIANT LYMPHOCYTES TOTAL PER COUNTED LEUKOCYTES BY MANUAL COUNT Normal [facility] Comment on above: Performed By: #### L [id number], [id number] ####Estimator And Drafter Supervisor: UNA STAUFFERMELANIE ([phone])[facility] (SBHL[facility])[address] Magnesium [Mass/Vol]on 04-07 Interpretation and review of laboratory results Normal [facility] No Panel Informationon 04-07 Eosinophils Manual 3 High 0 - 1 [facility] Lymphocytes Manual 8 [facility] Monocytes Manual 7 [facility] alth Neutrophils Manual 86 [facility] No Panel InformationOrdered By: Sharita Beck on 04-07-2025 Interpretation and review of laboratory results Abnormal [facility] Progress Noteon 04-07-2025 Progress Note [facility] Progress Note [facility] Progress [facility] Progress [facility] Progress [facility] [id number] 04-06-2025 [id number] Normal [facility] CBC W Auto Differential pane l (Bld)Ordered By: Annmarie Zuñiga on 04-06-2025 Hematocrit (Bld) [Volume fraction] 27.2 % Low 40.0 - 52.0 % [facility] Hemoglobin (Bld) [Mass/Vol] 7.6 g/dL Low 13.0 - 18.0 g/dL [facility] MCH (RBC) [Entitic mass] 22 pg Low 26. 0 - 34.0 pg [facility] MCV (RBC) [Entitic vol] 78.6 fL 77.0 - 99.0 fL [facility] RBC (Bld) [#/Vol] 3.46 10*6/uL Low 4.40 - 5.9 0 10*6/uL [facility] CBC WITH AUTO DIFFERENTIALon 04-06-2025 Erythrocyte distribution width (RBC) [Ratio] 20.5 % High 11.5-15.0 [facility] Comment on above: Performed By: #### L [id number], [id number] ####Estimator And Drafter Supervisor: UNA ARCE ([phone])[facility] (SBHLAB)[address] [place] [address] Hematocrit (Bld) [Volume fraction] 27.2 % Low 40.0-52.0 [facility] Comment on above: Performed By: #### L [id number], [id number] ####Estimator And Drafter Supervisor: UNA ARCE ([phone])[facility] [place] [address] Hemoglobin (Bld) [Mass/Vol] 7.6 g/dL Low 13.0-18.0 [facility] Comment on above: Performed By: #### L [id number], [id number] ####Estimator And Drafter Supervisor: UNA ARCE ([phone])[facility] [place] [address] MCH (RBC) [Entitic mass] 22.0 pg Low 26.0-34.0 [facility] Comment on above: Performed By: #### L [id number], [id number] ####Estimator And Drafter Supervisor: UNA ARCE ([phone])[facility] (SBHL[facility])[address] [place] [address] MCHC 27.9 % Low 30.5-36.0 [facility] Comment on above: Performed By: #### L [id number], [id number] ####Estimator And Drafter Supervisor: UNA ARCE ([phone])[facility] ([facility])[address] [place] [address] MCV (RBC) [Entitic vol] 78.6 fL Normal 77.0-99.0 [facility] Comment on above: Performed By: #### L [id number], [id number] ####Estimator And Drafter Supervisor: UNA ARCE ([phone])[facility]TE BASHIRMar[facility] ([facility])[address] [place] [address] Platelet mean volume (Bld) [Entitic vol] 9.7 fL Normal 9.0-12.7 [facility] Comment on above: Performed By: #### L [id number], [id number] ####Estimator And Drafter Supervisor: UNA ARCE ([phone])[facility] ([facility])[address] Platelets (Bld) [#/Vol] 344 10*3/uL Normal 140-440 [facility] Comment on above: Performed By: #### L [id number], [id number] ####Estimator And Drafter Supervisor: UNA ARCE ([phone])[facility] (SB[facility])[address] [place] [address] RBC (Bld) [#/Vol] 3.46 10*6/uL Low 4.40-5.90 [facility] Comment on above: Performed By: #### L [id number], [id number] ####Estimator And Drafter Supervisor: UNA ARCE ([phone])[facility] ([facility])[address] [place] [address] WBC (Bld) [#/Vol] 10.3 10*3/uL Normal 3.6-10.7 [facility] Comment on above: Performed By: #### L [id number], [id number] ####Estimator And Drafter Supervisor: UNA ARCE ([phone])[facility] ([facility])[address] COMPREHENSIVE METABOLIC PANE Anant 04-06-2025 Albumin [Mass/Vol] 2.6 g/dL Low 3.4-4.8 [facility] Comment on above: Performed By: #### L AB17, [id number] ####Estimator And Drafter Supervisor: UNA ARCE ([phone])[facility] [place] ([facility])[address] ALP [Catalytic activity/Vol] 63 U/L Normal 40-150 [facility] Comment on above: Performed By: #### L AB17, [id number] ####Estimator And Drafter Supervisor: UNA ARCE ([phone])[facility] [place] ([facility])[address] [place] [address] [place] ALT [Catalytic activity/Vol] 6 U/L Normal <40 [facility] Comment on above: Performed By: #### L AB17, [id number] ####Estimator And Drafter Supervisor: UNA ARCE ([phone])[facility] [place] ([facility])[address] Anion gap [Moles/Vol] 13 mmol/L Normal 3-13 [facility] Comment on above: Performed By: #### L AB17, [id number] ####Estimator And Drafter Supervisor: UNA ARCE ([phone])[facility] [place] ([facility])[address] AST [Catalytic activity/Vol] 25 U/L Normal <34 [facility] Comment on above: Performed By: #### L AB17, [id number] ####Estimator And Drafter Supervisor: UNA ARCE ([phone])[facility] [place] ([facility])[address] Bilirubin [Mass/Vol] 1.7 mg/dL High <1.2 [facility] Comment on above: Performed By: #### L AB17, [id number] ####Estimator And Drafter Supervisor: UNA ARCE ([phone])[facility] [place] ([facility])[address] [place] [address] [place] Calcium [Mass/Vol] 8.2 mg/dL Low 8.8-10.0 [facility] Comment on above: Performed By: #### L AB17, [id number] ####Estimator And Drafter Supervisor: UNA ARCE ([phone])[facility] [place] ([facility])[address] Chloride [Moles/Vol] 104 mmol/L Normal 98-107 [facility] Comment on above: Performed By: #### L AB17, [id number] ####Estimator And Drafter Supervisor: UNA ARCE ([phone])[facility] ([facility])[address] CO2 [Moles/Vol] 26 mmol/L Normal 23-31 [facility] Comment on above: Performed By: #### L AB17, [id number] ####Estimator And Drafter Supervisor: UNA ARCE ([phone])[facility] ([facility])[address] Creatinine [Mass/Vol] 1.44 mg/dL High 0.72-1.25 [facility] Comment on above: Performed By: #### L AB17, [id number] ####Estimator And Drafter Supervisor: UNA ARCE ([phone])[facility] ([facility])[address] GLOMERULAR FILTRATION RATE ML/MIN/1.73 SQ M.PREDICTED 46.4 mL/min/1.73m*2 Low >60.0 [facility] Comment on above: Result Comment: Calc ulation based on the Chronic Kidney Disease Epidemiology Collaboration (CKD-EPI) equation refit without adjustment for race Performed By: #### L AB17, [id number] ####Estimator And Drafter Supervisor: UNA ARCE ([phone])[facility] ([facility])[address] Glucose [Mass/Vol] 98 mg/dL Normal 82-115 [facility] Comment on above: Performed By: #### L AB17, [id number] ####Estimator And Drafter Supervisor: UNA ARCE ([phone])[facility] ([place])[address] Potassium [Moles/Vol] 4.2 mmol/L Normal 3.5-5.1 [facility] Comment on above: Result Comment: [facility] potassium values may be up to 0.5 mmol/L lower than serum values. Performed By: #### L AB17, [id number] ####Estimator And Drafter Supervisor: UNA MOHRCER ([phone])[facility] [place] ([facility])[address] Protein [Mass/Vol] 6.1 g/dL Low 6.4-8.3 [facility] Comment on above: Performed By: #### L AB17, [id number] ####Estimator And Drafter Supervisor: UNA BERMUDEZPEDRO ([phone])[facility] [place] ([place])[address] Sodium [Moles/Vol] 143 mmol/L Normal 136-145 [facility] Comment on above: Performed By: #### L AB17, [id number] ####Estimator And Drafter Supervisor: UNA BERMUDEZPEDRO ([phone])[facility] [place] ([place])[address] Urea nitrogen [Mass/Vol] 24 mg/dL High 9-23 [facility] Comment on above: Performed By: #### L AB17, [id number] ####Estimator And Drafter Supervisor: UNA BERMUDEZPEDRO ([phone])[facility] [place] ([facility])[address] ABDOMEN PELVIS WO IV CONT RASTon 04-06-2025 CT ABDOMEN PELVIS WO IV CONTRAST Normal [facility] CT Abdomen and Pelvis WO con traston 04-06-2025 [facility] Radiology Study observation (narrative) Lynette Balderrama alth CT Abdomen and Pelvis WO con trastOrdered By: Sergey Gooden on 04-06-2025 [facility] [employer] Phone: CT CHEST WO IV CONTRASTon CT CHEST WO IV CONTRAST Normal [facility] CT Chest WO contraston 04-06 [facility] Radiology Study observation (narrative) Monishaangel Balderrama alth CT Chest WO contrastOrdered By: Cari Lazaro on 04-06-2025 [facility] [employer] Phone: Consulton 04-06-2025 Consult Normal [facility] Consult Normal [facility] ECG 12-LEADon 04-06-2025 ECG 12-LEAD IMPRESSION: Sinus arrhythmia Nonspecific intraventricular conduction delay Probable anterolateral infarct, old No previous ECG for comparison Electronically Signed On 04-06-2025 01:54:21 EDT by Maik Laird Normal [facility] IRON AND TIBCon 04-06-2025 IRON BINDING CAPACITY 381 ug/dL Normal 250-450 [facility] Comment on above: Performed By: #### L [id number] ####Estimator And Drafter Supervisor: UNA ARCE ([phone])[facility] [place] ([facility])[address] IRON SATURATION 49.3 % Normal 20.0-50.0 [facility] Comment on above: Performed By: #### L [id number] ####Estimator And Drafter Supervisor: UNA ARCE ([phone])[facility] [place] ([facility])[address] IRON, TOTAL 188 ug/dL High 65-175 [facility] Comment on above: Performed By: #### L [id number] ####Estimator And Drafter Supervisor: UNA ARCE ([phone])[facility] [place] ([facility])[address] Laboratory - Hematology and Cell countson 04-06-2025 Basophils (Bld) [#/Vol] 0.2 10*3/uL 0.0 - 0.2 10*3/uL [facility] Basophils/100 WBC (Bld) 2 % 0 - 2 % [facility] Lymphocytes (Bld) [#/Vol] 1.4 10*3/uL 1.0 - 4.3 10*3/uL [facility] Lymphocytes/100 WBC (Bld) 14 % Low 15 - 45 % [facility] Monocytes (Bld) [#/Vol] 0.7 10*3/uL 0.0 - 0.9 10*3/uL [facility] Monocytes/100 WBC (Bld) 7 % 5 - 13 % [facility] RBC morphology finding Nom (Bld) abnormal [facility] MAGNESIUMon 04-06-2025 Magnesium [Mass/Vol] 1.8 mg/dL Normal 1.6-2.6 [facility] Comment on above: Result Comment: ORDE R COMMENTS:Higher values can be expected in females during menses. Performed By: #### L AB17, [id number] ####Estimator And Drafter Supervisor: UNA ARCE ([phone])[facility] ([facility])[address] MANUAL DIFFERENTIAL (CELLAVI BANDAR)on 04-06-2025 ANISOCYTOSIS PRESENCE IN BLOOD BY LIGHT MICROSCOPY Moderate Abnormal (none) [facility] Comment on above: Performed By: #### L [id number], [id number] ####Estimator And Drafter Supervisor: UNA ARCE ([phone])[facility] ([facility])[address] BAND NEUTROPHILS TOTAL PER COUNTED LEUKOCYTES BY MANUAL COUNT 1 Normal [facility] Comment on above: Performed By: #### L [id number], [id number] ####Estimator And Drafter Supervisor: UNA ARCE ([phone])[facility] [place] ([facility])[address] BANDS (10*3/UL) IN BLOOD-CELLAVISION 0.1 10*3/uL High <=0.0 [facility] Comment on above: Performed By: #### L [id number], [id number] ####Estimator And Drafter Supervisor: UNA ARCE ([phone])[facility] (SBHLAB)[address] [place] [address] [place] BASOPHILS (10*3/UL) IN BLOOD-CELLAVISION 0.2 10*3/uL Normal 0.0-0.2 [facility] Comment on above: Performed By: #### L [id number], [id number] ####Estimator And Drafter Supervisor: UNA ARCE ([phone])[facility] ([facility])[address] BASOPHILS TOTAL PER COUNTED LEUKOCYTES BY MANUAL COUNT 2 Normal [facility] Comment on above: Performed By: #### L [id number], [id number] ####Estimator And Drafter Supervisor: UNA YAZMIN ([phone])[facility] [place] ([facility])[address] [place] [address] [place] BASOPHILS/100 LEUKOCYTES IN BLOOD-CELLAVISION 2 % Normal 0-2 [facility] Comment on above: Performed By: #### L [id number], [id number] ####Estimator And Drafter Supervisor: UNA BERMUDEZPEDRO ([phone])[facility] [place] ([facility])[address] [place] [address] [place] BLASTS TOTAL PER COUNTED LEUKOCYTES BY MANUAL COUNT Normal [facility] Comment on above: Performed By: #### L [id number], [id number] ####Estimator And Drafter Supervisor: UNA BERMUDEZPEDRO ([phone])[facility] [place] ([facility])[address] [place] [address] [place] EOSINOPHILS TOTAL PER COUNTED LEUKOCYTES BY MANUAL COUNT Normal [facility] Comment on above: Performed By: #### L [id number], [id number] ####Estimator And Drafter Supervisor: UNA BERMUDEZPEDRO ([phone])[facility] [place] ([facility])[address] [place] [address] [place] HYPOCHROMIA (PRESENCE) IN BLOOD BY LIGHT MICROSCOPY Moderate Abnormal (none) [facility] Comment on above: Performed By: #### L [id number], [id number] ####Estimator And Drafter Supervisor: UNA BERMUDEZPEDRO ([phone])[facility] [place] ([facility])[address] [place] [address] [place] LYMPHOCYTES (10*3/UL) IN BLOOD-CELLAVISION 1.4 10*3/uL Normal 1.0-4.3 [facility] Comment on above: Performed By: #### L [id number], [id number] ####Estimator And Drafter Supervisor: UNA BERMUDEZPEDRO ([phone])[facility] [place] ([facility])[address] [place] [address] [place] LYMPHOCYTES TOTAL PER COUNTED LEUKOCYTES BY MANUAL COUNT 14 Normal [facility] Comment on above: Performed By: #### L [id number], [id number] ####Estimator And Drafter Supervisor: UNA STAUFFERMELANIE ([phone])[facility] [place] ([facility])[address] [place] [address] [place] LYMPHOCYTES/100 LEUKOCYTES IN BLOOD-CELLAVISION 14 % Low 15-45 [facility] Comment on above: Performed By: #### L [id number], [id number] ####Estimator And Drafter Supervisor: UNA BERMUDEZPEDRO ([phone])[facility] [place] ([facility])[address] [place] [address] [place] METAMYELOCYTES TOTAL PER COUNTED LEUKOCYTES BY MANUAL COUNT Normal [facility] Comment on above: Performed By: #### L [id number], [id number] ####Estimator And Drafter Supervisor: UNA BERMUDEZPEDRO ([phone])[facility] [place] ([facility])[address] [place] [address] [place] MICROCYTES (PRESENCE) IN BLOOD BY LIGHT MICROSCOPY Slight Abnormal (none) [facility] Comment on above: Performed By: #### L [id number], [id number] ####Estimator And Drafter Supervisor: UNA BERMUDEZPEDRO ([phone])[facility] [place] ([facility])[address] [place] [address] [place] MONOCYTES (10*3/UL) IN BLOOD-CELLAVISION 0.7 10*3/uL Normal 0.0-0.9 [facility] Comment on above: Performed By: #### L [id number], [id number] ####Estimator And Drafter Supervisor: UNA ARCE ([phone])[facility] [place] ([facility])[address] [place] [address] [place] MONOCYTES TOTAL PER COUNTED LEUKOCYTES BY MANUAL COUNT 7 Normal [facility] Comment on above: Performed By: #### L [id number], [id number] ####Estimator And Drafter Supervisor: UNA STAUFFERMELANIE ([phone])[facility] [place] ([facility])[address] [place] [address] [place] MONOCYTES/100 LEUKOCYTES IN BLOOD-LUCIANA 7 % Normal 5-13 [facility] Comment on above: Performed By: #### L [id number], [id number] ####Estimator And Drafter Supervisor: UNA ARCE ([phone])[facility] [place] ([facility])[address] [place] [address] [place] MYELOCYTES COUNTED BY MANUAL COUNT Normal [facility] Comment on above: Performed By: #### L [id number], [id number] ####Estimator And Drafter Supervisor: UNA ARCE ([phone])[facility] [place] ([facility])[address] [place] [address] [place] NEUTROPHILS BAND FORM/100 LEUKOCYTES IN BLOOD-CELLAVISI 1 % High <=0 [facility] Comment on above: Performed By: #### L [id number], [id number] ####Estimator And Drafter Supervisor: UNA ARCE ([phone])[facility] [place] ([facility])[address] [place] [address] [place] NEUTROPHILS TOTAL PER COUNTED LEUKOCYTES BY MANUAL COUNT 79 Normal [facility] Comment on above: Performed By: #### L [id number], [id number] ####Estimator And Drafter Supervisor: UNA ARCE ([phone])[facility] [place] ([facility])[address] [place] [address] [place] NUCLEATED ERYTHROCYTES/100 LEUKOCTES IN BLOOD-CELLAVISION 1 % Normal 0-2 [facility] [facility] Comment on above: Performed By: #### L [id number], [id number] ####Estimator And Drafter Supervisor: UNA ARCE ([phone])[facility] [place] ([facility])[address] [place] [address] [place] POIKILOCYTOSIS (PRESENCE) IN BLOOD BY LIGHT MICROSCOPY Slight Abnormal (none) [facility] Comment on above: Performed By: #### L [id number], [id number] ####Estimator And Drafter Supervisor: UNA ARCE ([phone])[facility] [place] ([facility])[address] [place] [address] [place] PROMYELOCYTES TOTAL PER COUNTED LEUKOCYTES BY MANUAL COUNT Normal [facility] Comment on above: Performed By: #### L [id number], [id number] ####Estimator And Drafter Supervisor: UNA ARCE ([phone])[facility] [place] ([facility])[address] [place] [address] [place] RBC MORPHOLOGY IN BLOOD abnormal Normal S [facility] Comment on above: Performed By: #### L [id number], [id number] ####Estimator And Drafter Supervisor: UNA ARCE ([phone])[facility] [place] ([facility])[address] [place] [address] [place] SEGMENTED NEUTROPHILS (10*3/UL) IN BLOOD-CELLAVISION 8.0 10*3/uL High 1.8-7.5 [facility] Comment on above: Performed By: #### L [id number], [id number] ####Estimator And Drafter Supervisor: UNA ARCE ([phone])[facility] [place] ([facility])[address] [place] [address] [place] SEGMENTED NEUTROPHILS/100 LEUKOCYTES-CE 77 % Normal 38-82 [facility] Comment on above: Performed By: #### L [id number], [id number] ####Estimator And Drafter Supervisor: UNA ARCE ([phone])[facility] [place] ([facility])[address] [place] [address] [place] STOMATOCYTES IN BLOOD BY LIGHT MICROSCOPY Slight Abnormal (none) [facility] Comment on above: Performed By: #### L [id number], [id number] ####Estimator And Drafter Supervisor: UNA ARCE ([phone])[facility] [place] ([facility])[address] [place] [address] [place] UNCLASSIFIED CELLS TOTAL PER COUNTED LEUKOCYTES BY MANUAL COUNT [facility] Comment on above: Performed By: #### L [id number], [id number] ####Estimator And Drafter Supervisor: UNA ARCE ([phone])[facility] [place] ([facility])[address] [place] [address] [place] VARIANT LYMPHOCYTES TOTAL PER COUNTED LEUKOCYTES BY MANUAL COUNT Normal [facility] Comment on above: Performed By: #### L [id number], [id number] ####Estimator And Drafter Supervisor: UNA ARCE ([phone])[facility] [place] ([facility])[address] [place] [address] [facility] Nursing Noteon 04-06-2025 Nursing Note Normal [facility] Nursing Note Transfused two pint of blood. No any allergic reaction seen.vital signs are within normal limits. Normal [facility] Progress Noteon 04-06-2025 Progress [facility] Progress [facility] US Heart TransthoracicOrdere d By: Thomas Hinton on 04-06-2025 Ao Root Index 1.47 cm/m2 [facility] Work Phone: Aortic Root 3 cm [facility] Work Phone: Aortic valve Mean systole pressure gradient by US.doppler derived full Bernoulli [address] [facility] Work Phone: Aortic valve Orifice area by US 3.1 cm2 [facility] Work Phone: Aortic valve Peak systolic flow by US.doppler 1.3 m/s [facility] Work Phone: Ascending Aorta 3.1 [facility] Work Phone: Ascending Aorta Index 1.52 cm/m2 [facility] Work Phone: AV Area by Peak Velocity 1.5 cm2 [facility] Work Phone: AV Area by VTI 1.3 cm2 [facility] Work Phone: AV Peak Gradient [address] [facility] Work Phone: AV Peak Velocity 1.9 m/[facility] Work Phone: AV Velocity Ratio 0.47 [facility] Work Phone: AV VTI 37.4 cm [facility] Work Phone: JULIET/BSA Peak Velocity 0.7 cm2/m2 [facility] Work Phone: JULIET/BSA VTI 0.6 cm2/m2 [facility] Work Phone: E/E' Lateral 23 [facility] Work Phone: Est. RA Pressure [address] [facility] Work Phone: Fractional Shortening 2D 8 % 28 - 44 % [facility] Work Phone: Interpretation and review of laboratory results Abnormal [facility] Work Phone: IVSd 1.1 cm Abnormal 0.6 - 1.[address] [facility] Work Phone: LA Diameter [address] [facility] Work Phone: LA Size Index 1.96 cm/m2 [facility] Work Phone: LA Volume 4C 56 mL 18 - [address] [facility] Work Phone: LA Volume Index 4C 27 mL/m2 16 - 34 mL/m2 [facility] Work Phone: LA/AO Root Ratio 1.33 [facility] Work Phone: Left ventricular Ejection fraction by US.2D+Calculated by biplane method of disks 22 % Abnormal 55 - 100 % [facility] Work Phone: LV E' Lateral Velocity 5 cm/s [facility] Work Phone: LV EDV A2C 331 mL [facility] Work Phone: LV EDV A4C 293 mL [facility] Work Phone: LV EDV BP 315 mL Abnormal 67 - [address] [facility] Work Phone: LV EDV Index A2C 162 mL/m2 [facility] Work Phone: LV EDV Index A4C 144 mL/m2 [facility] Work Phone: LV EDV Index BP 154 mL/m2 [facility] Work Phone: LV Ejection Fraction A2C 26 % [facility] Work Phone: LV Ejection Fraction A4C 22 % [facility] Work Phone: LV ESV A2C 245 mL [facility] Work Phone: LV ESV A4C 229 mL [facility] Work Phone: LV ESV BP 247 mL Abnormal 22 - 58 mL [facility] Work Phone: LV ESV Index A2C 120 mL/m2 [facility] Work Phone: LV ESV Index A4C 112 mL/m2 [facility] Work Phone: LV ESV Index BP 121 mL/m2 [facility] Work Phone: LV Mass 2D 246.9 g Abnormal 88 - 224 g [facility] Work Phone: LV Mass 2D Index 121 g/m2 Abnormal 49 - 115 g/m2 [facility] Work Phone: LV RWT Ratio 0.3 [facility] Work Phone: LVIDd 6 cm Abnormal 4.2 - 5.9 cm [facility] Work Phone: LVIDd Index 2.94 cm/m2 [facility] Work Phone: LVIDs 5.5 cm [facility] Work Phone: LVIDs Index 2.7 cm/m2 [facility] Work Phone: LVOT Cardiac Output 3.2 liter/minute [facility] Work Phone: LVOT Diameter [address] [facility] Work Phone: LVOT Mean Gradient 2 mmHg [facility] Work Phone: LVOT Peak Gradient 3 mmHg [facility] Work Phone: LVOT Peak Velocity 0.9 m/s [facility] Work Phone: LVOT Stroke Volume Index 23.2 mL/m2 [facility] Work Phone: LVOT SV 47.4 ml [facility] Work Phone: LVOT VTI 15.1 cm [facility] Work Phone: LVOT:AV VTI Index 0.4 [facility] Work Phone: LVPWd 0.9 cm 0.6 - 1.0 cm [facility] Work Phone: MR VTI 139.2 cm [facility] Work Phone: MV A Velocity 1.12 m/s [facility] Work Phone: MV E Velocity 1.15 m/s [facility] Work Phone: MV E Wave Deceleration Time 179.2 ms [facility] Work Phone: MV E/A 1.03 [facility] Work Phone: MV Nyquist Velocity 36 cm/s [facility] Work Phone: MV Regurg Velocity PISA 4.6 m/s S [facility] Work Phone: RA Area 4C 34.5 mL [facility] Work Phone: RV Free Wall Peak S' 13 cm/s [facility] Work Phone: RVSP 66 mmHg [facility] Work Phone: TAPSE 2.4 cm 1.7 cm [facility] Work Phone: TR Max Velocity 3.58 m/s [facility] Work Phone: TR Peak Gradient 51 mmHg [facility] Work Phone: [facility] Work Phone: US Heart Transthoracicon CV CPACS BASIC METABOLIC PANELon 03-10 Anion gap [Moles/Vol] 8 mmol/L Normal 3-13 [facility] Comment on above: Performed By: #### L [id number], LAB15, [id number], LAB20, LAB69, [id number], [id number], LAB89 ####Estimator And Drafter Supervisor: UNA ARCE ([phone])[facility] [place] (SB[facility])[address] Calcium [Mass/Vol] 8.4 mg/dL Low 8.8-10.0 [facility] Comment on above: Performed By: #### L [id number], LAB15, [id number], LAB20, LAB69, [id number], [id number], LAB89 ####Estimator And Drafter Supervisor: UNA ARCE ([phone])[facility] (SBHLAB)[address] Chloride [Moles/Vol] 105 mmol/L Normal 98-107 [facility] Comment on above: Performed By: #### L [id number], LAB15, [id number], LAB20, LAB69, [id number], [id number], LAB89 ####Estimator And Drafter Supervisor: UNA ARCE ([phone])[facility] (SBHL[place])[address] CO2 [Moles/Vol] 27 mmol/L Normal 23-31 [facility] Comment on above: Performed By: #### L AB67, LAB15, [id number], LAB20, LAB69, [id number], [id number], LAB89 ####Estimator And Drafter Supervisor: UNA ARCE ([phone])[facility] ([place])[address] Creatinine [Mass/Vol] 1.46 mg/dL High 0.72-1.25 [facility] Comment on above: Performed By: #### L AB67, LAB15, [id number], LAB20, LAB69, [id number], [id number], LAB89 ####Estimator And Drafter Supervisor: UNA ARCE ([phone])[facility] ([place])[address] GLOMERULAR FILTRATION RATE ML/MIN/1.73 SQ M.PREDICTED 45.7 mL/min/1.73m*2 Low >60.0 [facility] Comment on above: Result Comment: Calc ulation based on the Chronic Kidney Disease Epidemiology Collaboration (CKD-EPI) equation refit without adjustment for race Performed By: #### L AB67, LAB15, GVA632, LAB20, LAB69, [id number], [id number], LAB89 ####Estimator And Drafter Supervisor: UNA ARCE ([phone])[facility] (SB[facility])[address] Glucose [Mass/Vol] 108 mg/dL Normal 82-115 [facility] Comment on above: Performed By: #### L AB67, LAB15, IEW266, LAB20, LAB69, [id number], [id number], LAB89 ####Estimator And Drafter Supervisor: UNA ARCE ([phone])[facility] (SB[facility])[address] Potassium [Moles/Vol] 4.5 mmol/L Normal 3.5-5.1 [facility] Comment on above: Result Comment: [facility] potassium values may be up to 0.5 mmol/L lower than serum values. Performed By: #### L AB67, LAB15, [id number], LAB20, LAB69, RHC988, [id number], LAB89 ####Estimator And Drafter Supervisor: UNA ARCE ([phone])[facility] Sodium [Moles/Vol] 140 mmol/L Normal 136-145 [facility] Comment on above: Performed By: #### L AB67, LAB15, YZR132, LAB20, LAB69, VJA031, [id number], LAB89 ####Estimator And Drafter Supervisor: UNA ARCE ([phone])[facility] (HLAB)[address] Urea nitrogen [Mass/Vol] 24 mg/dL High 9-23 [facility] Comment on above: Performed By: #### L AB67, LAB15, DCF477, LAB20, LAB69, [id number], [id number], LAB89 ####Estimator And Drafter Supervisor: UNA ARCE ([phone])[facility] (HLAB)[address] BLOOD TYPE AND SCREEN GELon 04-05-2025 ABO GROUPING A Normal [facility] Comment on above: Performed By: #### L [id number] ####Estimator And Drafter Supervisor: UNA ARCE ([phone])[facility] ([facility])[address] [place] [address] RH TYPE IN BLOOD Negative Normal [facility] Comment on above: Performed By: #### L [id number] ####Estimator And Drafter Supervisor: UNA ARCE ([phone])[facility] ([facility])[address] CBC WITH AUTO DIFFERENTIALon 04-05-2025 Erythrocyte distribution width (RBC) [Ratio] 19.9 % High 11.5-15.0 [facility] Comment on above: Performed By: #### L [id number], [id number], [id number] ####Estimator And Drafter Supervisor: UNA ARCE ([phone])[facility] ([facility])[address] [place] [address] Hematocrit (Bld) [Volume fraction] 20.7 % Low 40.0-52.0 [facility] Comment on above: Performed By: #### L [id number], [id number], [id number] ####Estimator And Drafter Supervisor: UNA ARCE ([phone])[facility] ([facility])[address] [place] [address] Hemoglobin (Bld) [Mass/Vol] 5.5 g/dL Critically low 13.0-18.0 [facility] Comment on above: Performed By: #### L [id number], [id number], [id number] ####Estimator And Drafter Supervisor: UNA ARCE ([phone])[facility] [place] [address] MCH (RBC) [Entitic mass] 19.4 pg Low 26.0-34.0 [facility] Comment on above: Performed By: #### L [id number], [id number], [id number] ####Estimator And Drafter Supervisor: UNA ARCE ([phone])[facility] (SB[facility])[address] MCHC 26.6 % Low 30.5-36.0 [facility] Comment on above: Performed By: #### L [id number], [id number], [id number] ####Estimator And Drafter Supervisor: UNA ARCE ([phone])[facility] (SBHLAB)[address] MCV (RBC) [Entitic vol] 73.1 fL Low 77.0-99.0 [facility] Comment on above: Performed By: #### L [id number], [id number], [id number] ####Estimator And Drafter Supervisor: UNA ARCE ([id number])[facility] (SBHLAB)[address] Platelet mean volume (Bld) [Entitic vol] 9.4 fL Normal 9.0-12.7 [facility] Comment on above: Performed By: #### Gilbert [id number], [id number], [id number] ####Estimator And Drafter Supervisor: UNA ARCE ([phone])[facility] (SB[facility])[address] Platelets (Bld) [#/Vol] 358 10*3/uL Normal 140-440 [facility] Comment on above: Performed By: #### L [id number], [id number], [id number] ####Estimator And Drafter Supervisor: UNA ARCE ([phone])[facility] ([facility])[address] RBC (Bld) [#/Vol] 2.83 10*6/uL Low 4.40-5.90 [facility] Comment on above: Performed By: #### L [id number], [id number], [id number] ####Estimator And Drafter Supervisor: UNA ARCE ([phone])[facility] [place] ([facility])[address] WBC (Bld) [#/Vol] 10.0 10*3/uL Normal 3.6-10.7 [facility] Comment on above: Performed By: #### L [id number], [id number], [id number] ####Estimator And Drafter Supervisor: UNA ARCE ([phone])[facility] ([facility])[address] [place] [address] ED Provider Noteon ED Provider Note Normal [facility] FERRITINon 04-05-2025 Ferritin [Mass/Vol] 19 ng/mL Low 22-275 [facility] Comment on above: Result Comment: YARELI [place] COMMENTS:Ferritin levels below 10 ng/mL have been reported as indicative of iron deficiency anemia. Performed By: #### L [id number], LAB18, LAB68 ####Estimator And Drafter Supervisor: UNA ARCE ([phone])[facility] ([facility])[address] [place] [address] FOLATEon 04-05-2025 FOLATE RESULT 13.7 ng/mL Normal 7.0-31.4 [facility] Comment on above: Performed By: #### L AB67, LAB15, LEB526, LAB20, LAB69, ESV471, [id number], LAB89 ####Estimator And Drafter Supervisor: UNA ARCE ([phone])[facility] ([place])[address] [place] [address] HAPTOGLOBINon 04-05-2025 HAPTOGLOBIN 226 mg/dL Normal 50-270 [facility] Comment on above: Performed By: #### L AB67, LAB15, [id number], LAB20, LAB69, HLE321, [id number], LAB89 ####Estimator And Drafter Supervisor: UNA ARCE ([phone])[facility] ([place])[address] [place] [address] HEPATIC FUNCTION PANELon Albumin [Mass/Vol] 2.7 g/dL Low 3.4-4.8 [facility] Comment on above: Performed By: #### L AB67, LAB15, YRA659, LAB20, LAB69, VFF592, [id number], LAB89 ####Estimator And Drafter Supervisor: UNA ARCE ([phone])[facility] ([place])[address] ALP [Catalytic activity/Vol] 65 U/L Normal 40-150 [facility] Comment on above: Performed By: #### L AB67, LAB15, EVF057, LAB20, LAB69, DSQ255, [id number], LAB89 ####Estimator And Drafter Supervisor: UNA ARCE ([phone])[facility] (HLAB)[address] ALT [Catalytic activity/Vol] 7 U/L Normal <40 [facility] Comment on above: Performed By: #### L AB67, LAB15, GHP371, LAB20, LAB69, MCU485, [id number], LAB89 ####Estimator And Drafter Supervisor: UNA ARCE ([phone])[facility] ([facility] AST [Catalytic activity/Vol] 22 U/L Normal <34 [facility] Comment on above: Performed By: #### L AB67, LAB15, YYD653, LAB20, LAB69, TAN486, [id number], LAB89 ####Estimator And Drafter Supervisor: UNA ARCE ([phone])[facility] ([facility])[address] Bilirubin [Mass/Vol] 0.5 mg/dL Normal <1.2 [facility] Comment on above: Performed By: #### L AB67, LAB15, QSC100, LAB20, LAB69, XYC258, [id number], LAB89 ####Estimator And Drafter Supervisor: UNA ARCE ([phone])[facility] ([facility])[address] [place] [address] [place] Bilirubin.indirect [Mass/Vol] 0.2 mg/dL Normal <0.5 [facility] Comment on above: Performed By: #### L AB67, LAB15, OPD253, LAB20, LAB69, OSY091, [id number], LAB89 ####Estimator And Drafter Supervisor: UNA ARCE ([phone])[facility] ([facility] [place] [address] Protein [Mass/Vol] 6.4 g/dL Normal 6.4-8.3 [facility] Comment on above: Result Comment: Seru m protein values are higher than plasma values. Samples from recumbent persons are lower by up to 0.5 g/dL as compared to ambulatory persons. After 60 years values are lower by up to 0.2 g/dL. Performed By: #### L AB67, LAB15, OCZ464, LAB20, LAB69, [id number], [id number], LAB89 ####Estimator And Drafter Supervisor: UNA ARCE ([phone])[facility] ([facility])[address] [place] [address] HIGH SENSITIVITY TROPONIN, S ERIAL BASELINEon 04-05-2025 TROPONIN HS SERIAL BASELINE 29 ng/L Normal <=35 [facility] Comment on above: Result Comment: In i ndividuals presenting with symptoms > 2h, a baseline troponin <= 5 ng/L suggests acutecardiac injury is unlikely and further serial testing is generally not indicated. Performed By: #### L [id number] ####Estimator And Drafter Supervisor: UNA ARCE ([phone])[facility] ([facility])[address] [place] [address] TROPONIN HS SERIAL BASELINE 30 ng/L Normal <=35 [facility] Comment on above: Result Comment: In i ndividuals presenting with symptoms > 2h, a baseline troponin <= 5 ng/L suggests acutecardiac injury is unlikely and further serial testing is generally not indicated. Performed By: #### L AB67, LAB15, IAQ055, LAB20, LAB69, ARQ273, [id number], LAB89 ####Estimator And Drafter Supervisor: UNA ARCE ([phone])[facility] ([facility])[address] [place] [address] HIGH SENSITIVITY TROPONIN, S ERIAL, SECOND TESTon 04-05-2025 2H TROPONIN HS (SERIAL 2ND TROPONIN) 28 ng/L Normal <=35 [facility] Comment on above: Result Comment: 2h t roponin (2nd troponin) samples collected between 1h 40 min and 2h and 20 min of the baseline collection time can be utilized to interpret delta troponins as per [facility] algorithms. Samples collected outside this timeframe need to be interpreted clinically.Rising or falling troponin delta below 2 ng/L as compared to baseline value suggests thatacute cardiac injury is unlikely. Performed By: #### L [id number], LAB18, LAB68 ####Estimator And Drafter Supervisor: UNA ARCE ([phone])[facility] [place] ([facility])[address] LIPID PANELon 04-05-2025 Cholesterol [Mass/Vol] 89 mg/dL Normal <200 [facility] Comment on above: Performed By: #### Gilbert [id number], LAB18, LAB68 ####Estimator And Drafter Supervisor: UNA ARCE ([phone])[facility] [place] ([place])[address] Cholesterol in HDL [Mass/Vol] 29 mg/dL Low >=60 [facility] Comment on above: Performed By: #### Gilbert [id number], LAB18, LAB68 ####Estimator And Drafter Supervisor: UNA ARCE ([phone])[facility] ([place])[address] Cholesterol.total/Choles terol in HDL [Mass ratio] 3 {ratio} Normal [facility] Comment on above: Result Comment: Ref Range:< 3 Low Risk for CHD3-6 Mod Risk for CHD> 6 High Risk for CHD Performed By: #### L [id number], LAB18, LAB68 ####Estimator And Drafter Supervisor: UNA ARCE ([phone])[facility]Angel [facility] ([facility])[address] LOW DENSITY LIPOPROTEIN 48 mg/dL Normal 0-<100 [facility] Comment on above: Performed By: #### L [id number], LAB18, LAB68 ####Estimator And Drafter Supervisor: UNA ARCE ([phone])[facility] (SB[facility])[address] NON-HDL CHOLESTEROL, CALCULATED 60 Normal <130 [facility] Comment on above: Performed By: #### L [id number], LAB18, LAB68 ####Estimator And Drafter Supervisor: UNA ARCE ([phone])[facility] [place] ([facility])[address] Triglyceride [Mass/Vol] 60 mg/dL Normal <150 [facility] Comment on above: Performed By: #### L [id number], LAB18, LAB68 ####Estimator And Drafter Supervisor: UNA ARCE ([phone])[facility] ([facility])[address] VERY LOW DENSITY LIPOPROTEIN, CALCULATED 12 mg/dL Normal <=30 [facility] Comment on above: Performed By: #### L [id number], LAB18, LAB68 ####Estimator And Drafter Supervisor: UNA ARCE ([phone])[facility] [place] ([place])[address] MANUAL DIFFERENTIAL (CELLAVI BANDAR)on 04-05-2025 ANISOCYTOSIS PRESENCE IN BLOOD BY LIGHT MICROSCOPY Moderate Abnormal (none) [facility] Comment on above: Performed By: #### L [id number], [id number], [id number] ####Estimator And Drafter Supervisor: UNA ARCE ([phone])[facility] ([facility])[address] [place] [address] BAND NEUTROPHILS TOTAL PER COUNTED LEUKOCYTES BY MANUAL COUNT [facility] Comment on above: Performed By: #### L [id number], [id number], [id number] ####Estimator And Drafter Supervisor: UNA ARCE ([phone])[facility] [place] ([place])[address] BASOPHILS TOTAL PER COUNTED LEUKOCYTES BY MANUAL COUNT [facility] Comment on above: Performed By: #### L [id number], [id number], [id number] ####Estimator And Drafter Supervisor: UNA ARCE ([phone])[facility] [place] ([facility])[address] [place] [address] [place] BLASTS TOTAL PER COUNTED LEUKOCYTES BY MANUAL COUNT Normal [facility] Comment on above: Performed By: #### L [id number], [id number], [id number] ####Estimator And Drafter Supervisor: UNA ARCE ([id number])[facility] [place] ([facility])[address] EOSINOPHILS TOTAL PER COUNTED LEUKOCYTES BY MANUAL COUNT Normal [facility] Comment on above: Performed By: #### L [id number], [id number], [id number] ####Estimator And Drafter Supervisor: UNA ARCE ([phone])[facility] [place] ([facility])[address] HYPOCHROMIA (PRESENCE) IN BLOOD BY LIGHT MICROSCOPY Moderate Abnormal (none) [facility] Comment on above: Performed By: #### L [id number], [id number], [id number] ####Estimator And Drafter Supervisor: UNA ARCE ([phone])[facility] [place] ([facility])[address] [place] [address] [place] LYMPHOCYTES (10*3/UL) IN BLOOD-CELLAVISION 1.4 10*3/uL Normal 1.0-4.3 [facility] Comment on above: Performed By: #### L [id number], [id number], [id number] ####Estimator And Drafter Supervisor: UNA ARCE ([phone])[facility] [place] ([facility])[address] [place] [address] [place] LYMPHOCYTES TOTAL PER COUNTED LEUKOCYTES BY MANUAL COUNT 15 Normal [facility] Comment on above: Performed By: #### L [id number], [id number], [id number] ####Estimator And Drafter Supervisor: UNA ARCE ([phone])[facility] [place] ([facility])155 [place] [address] [place] LYMPHOCYTES/100 LEUKOCYTES IN BLOOD-CELLAVISION 14 % Low 15-45 [facility] Comment on above: Performed By: #### L [id number], [id number], [id number] ####Estimator And Drafter Supervisor: UNA ARCE ([phone])[facility] [place] ([facility]HLAB)155 [place] [address] [place] METAMYELOCYTES TOTAL PER COUNTED LEUKOCYTES BY MANUAL COUNT Normal [facility] Comment on above: Performed By: #### L [id number], [id number], [id number] ####Estimator And Drafter Supervisor: UNA BERMUDEZPEDRO ([phone])[facility] [place] ([facility])[address] [place] [address] [place] MICROCYTES (PRESENCE) IN BLOOD BY LIGHT MICROSCOPY Slight Abnormal (none) [facility] Comment on above: Performed By: #### L [id number], [id number], [id number] ####Estimator And Drafter Supervisor: UNA BERMUDEZPEDRO ([phone])[facility] [place] ([facility])[address] [place] [address] [place] MONOCYTES (10*3/UL) IN BLOOD-CELLAVISION 1.3 10*3/uL High 0.0-0.9 [facility] Comment on above: Performed By: #### L [id number], [id number], [id number] ####Estimator And Drafter Supervisor: UNA BERMUDEZPEDRO ([phone])[facility] [place] ([facility])[address] [place] [address] [place] MONOCYTES TOTAL PER COUNTED LEUKOCYTES BY MANUAL COUNT 14 Normal [facility] Comment on above: Performed By: #### L [id number], [id number], [id number] ####Estimator And Drafter Supervisor: UNA BERMUDEZPEDRO ([phone])[facility] [place] ([facility])[address] [place] [address] [place] MONOCYTES/100 LEUKOCYTES IN BLOOD-LUCIANA 13 % Normal 5-13 [facility] Comment on above: Performed By: #### L [id number], [id number], [id number] ####Estimator And Drafter Supervisor: UNA STAUFFERMELANIE ([phone])[facility] [place] ([facility])[address] [place] [address] [place] MYELOCYTES COUNTED BY MANUAL COUNT Normal [facility] Comment on above: Performed By: #### L [id number], [id number], [id number] ####Estimator And Drafter Supervisor: UNA YAZMIN ([phone])[facility] [place] ([facility])[address] [place] [address] [place] NEUTROPHILS TOTAL PER COUNTED LEUKOCYTES BY MANUAL COUNT 76 Normal [facility] Comment on above: Performed By: #### L [id number], [id number], [id number] ####Estimator And Drafter Supervisor: UNA YAZMIN ([phone])[facility] [place] ([facility])[address] [place] [address] [place] NUCLEATED ERYTHROCYTES/100 LEUKOCTES IN BLOOD-CELLAVISION 1 % Normal 0-2 [facility] Comment on above: Performed By: #### L [id number], [id number], [id number] ####Estimator And Drafter Supervisor: UNAANJEL ARCE ([phone])[facility] [place] ([facility])[address] [place] [address] [place] OVALOCYTES PRESENCE IN BLOOD BY LIGHT MICROSCOPY Slight Abnormal (none) [facility] Comment on above: Performed By: #### L [id number], [id number], [id number] ####Estimator And Drafter Supervisor: UNA YAZMIN ([phone])[facility] [place] ([facility])[address] [place] [address] [place] POIKILOCYTOSIS (PRESENCE) IN BLOOD BY LIGHT MICROSCOPY Moderate Abnormal (none) [facility] Comment on above: Performed By: #### L [id number], [id number], [id number] ####Estimator And Drafter Supervisor: UNA YAZMIN ([phone])[facility] [place] ([facility])[address] [place] [address] [place] PROMYELOCYTES TOTAL PER COUNTED LEUKOCYTES BY MANUAL COUNT Normal [facility] Comment on above: Performed By: #### L [id number], [id number], [id number] ####Estimator And Drafter Supervisor: UNA YAZMIN ([phone])[facility] [place] ([facility])[address] [place] [address] [place] RBC MORPHOLOGY IN BLOOD abnormal Normal [facility] Comment on above: Performed By: #### L [id number], [id number], [id number] ####Estimator And Drafter Supervisor: UNA ARCE ([phone])[facility] [place] ([facility])155 [place] [address] [place] SEGMENTED NEUTROPHILS (10*3/UL) IN BLOOD-CELLAVISION 7.2 10*3/uL Normal 1.8-7.5 [facility] Comment on above: Performed By: #### L [id number], [id number], [id number] ####Estimator And Drafter Supervisor: UNA ARCE ([id number])[facility] [place] ([facility])[address] [place] [address] [place] SEGMENTED NEUTROPHILS/100 LEUKOCYTES-CE 72 % Normal 38-82 [facility] Comment on above: Performed By: #### L [id number], [id number], [id number] ####Estimator And Drafter Supervisor: UNA ARCE ([phone])[facility] [place] ([facility])[address] [place] [address] [place] STOMATOCYTES IN BLOOD BY LIGHT MICROSCOPY Moderate Abnormal (none) [facility] Comment on above: Performed By: #### L [id number], [id number], [id number] ####Estimator And Drafter Supervisor: UNA ARCE ([phone])[facility] [place] ([facility])[address] [employer] CELLS IN BLOOD BY LIGHT MICROSCOPY Slight Abnormal (none) [facility] Comment on above: Performed By: #### L [id number], [id number], [id number] ####Estimator And Drafter Supervisor: UNA ARCE ([phone])[facility] [place] ([facility])[address] [place] [address] [place] UNCLASSIFIED CELLS TOTAL PER COUNTED LEUKOCYTES BY MANUAL COUNT Normal [facility] Comment on above: Performed By: #### L [id number], [id number], [id number] ####Estimator And Drafter Supervisor: UNA ARCE ([phone])[facility] [place] ([facility])[address] [place] [address] [place] VARIANT LYMPHOCYTES TOTAL PER COUNTED LEUKOCYTES BY MANUAL COUNT Normal [facility] Comment on above: Performed By: #### L [id number], [id number], [id number] ####Estimator And Drafter Supervisor: UNA ARCE ([id number])[facility]NETTE BASHIRMar[place] ([place])[address] NT PRO BNPon 04-05-2025 Natriuretic peptide B (Bld) [Mass/Vol] 8438 pg/mL High <450 [facility] Comment on above: Performed By: #### L AB67, LAB15, [id number], LAB20, LAB69, [id number], [id number], [id number] ####Estimator And Drafter Supervisor: UNA ARCE ([phone])[facility] [place] ([place])[address] RETICULOCYTESon 04-05-2025 Reticulocytes/100 RBC (Bld) 2.31 % Normal [facility] Comment on above: Result Comment: Newb orn < 5%Adults 0.4 - 2.0% Performed By: #### L [id number], [id number], [id number] ####Estimator And Drafter Supervisor: UNA ARCE ([id number])[facility] [place] ([place])[address] THYROID STIMULATING HORMONEo n 04-05-2025 THYROID STIMULATING HORMONE 10.19 uIU/mL High 0.35-4.94 [facility] Comment on above: Performed By: #### L AB67, LAB15, [id number], LAB20, LAB69, [id number], [id number], LAB89 ####Estimator And Drafter Supervisor: NUA ARCE ([id number])[facility] [place] ([place])[address] VITAMIN B12on 04-05-2025 Cobalamin (Vitamin B12) [Mass/Vol] 817 pg/mL High 213-816 [facility] Comment on above: Performed By: #### L AB67, LAB15, [id number], LAB20, LAB69, [id number], [id number], LAB89 ####Estimator And Drafter Supervisor: UNA ARCE ([phone])[facility]NETTE [place] ([place])[address] Vital Signs Date Time Vital Sign Value Performing Clinician Annalisai gerson 07-19-2025 19:12-0500 Diastolic blood pressure 78 mm[Hg] Josefina Rose MD Work Phone: [facility] 07-19-2025 19:12-0500 Heart rate 75 /min Josefina Rose MD Work Phone: [facility] 07-19-2025 19:12-0500 Respiratory rate 17 /min Josefina Rose MD Work Phone: [facility] 07-19-2025 19:12-0500 SaO2% (BldA) [Mass fraction] 100 % Josefina Rose MD Work Phone: [facility] 07-19-2025 19:12-0500 Systolic blood pressure 117 mm[Hg] Josefina Rose MD Work Phone: [facility] 07-19-2025 17:02-0500 Body temperature 98.1 [degF] Josefina Rose MD Work Phone: [facility] 06-22-2025 02:11-0400 Diastolic blood pressure 57 mm[Hg] [facility] 06-22-2025 02:11-0400 Heart rate 54 /min Sagar Gombash DO Work Phone: [employer] 06-22-2025 02:11-0400 Respiratory rate 18 /min Sagar Gombash DO Work Phone: [facility] 06-22-2025 02:11-0400 SaO2% (BldA) [Mass fraction] 97 % Sagar Gombash DO Work Phone: [employer] 06-22-2025 02:11-0400 Systolic blood pressure 105 mm[Hg] Sagar Gombash DO Work Phone: [facility] 06-22-2025 00:31-0400 Body temperature 98.2 [degF] Sagar Gombash DO Work Phone: [facility] 06-17-2025 10:47-0400 SaO2% (BldA) [Mass fraction] 95 % Eber Hess MD Work Phone: [facility] 06-17-2025 10:27-0400 Body height 174 cm Eber Hess MD Work Phone: [facility] 06-17-2025 10:27-0400 Body mass index (BMI) [Ratio] 27.3 kg/m2 Eber Hess MD Work Phone: [facility] 06-17-2025 10:27-0400 Body weight 82.64 kg Eber Hess MD Work Phone: [facility] 06-17-2025 10:27-0400 Diastolic blood pressure 58 mm[Hg] Eber Hess MD Work Phone: [facility] 06-17-2025 10:27-0400 Heart rate 70 /min Eber Hess MD Work Phone: [facility] 06-17-2025 10:27-0400 Systolic blood pressure 110 mm[Hg] Eber Hess MD Work Phone: [facility] 05-03-2025 10:13-0400 Body height 174 cm Alejandro Jonnyynkary APR N - EMS DRIVER Work Phone: [facility] 05-03-2025 10:13-0400 Body mass index (BMI) [Ratio] 28.09 kg/m2 Alejandro Queen PROGRAM SCHEDULE CLERK - EMS DRIVER Work Phone: [facility] 05-03-2025 10:13-0400 Body weight 85.05 kg Alejandro Jonnyynick APR N - EMS DRIVER Work Phone: [facility] 05-03-2025 10:13-0400 Diastolic blood pressure 62 mm[Hg] Alejandro Jonnyynick PROGRAM SCHEDULE CLERK - EMS DRIVER Work Phone: [facility] 05-03-2025 10:13-0400 Heart rate 66 /min Alejandro Jonnyynick APR N - EMS DRIVER Work Phone: [facility] 05-03-2025 10:13-0400 Systolic blood pressure 106 mm[Hg] Alejandro Queen PROGRAM SCHEDULE CLERK - EMS DRIVER Work Phone: [employer] 04-17-2025 08:40-0400 Diastolic blood pressure 50 mm[Hg] Rowena Aguilar DO Work Phone: [employer] 04-17-2025 08:40-0400 Heart rate 62 /min Rowena Eliasffey DO Work Phone: [employer] 04-17-2025 08:40-0400 Respiratory rate 17 /min Rowena Aguilar DO Work Phone: [employer] 04-17-2025 08:40-0400 SaO2% (BldA) [Mass fraction] 96 % Rowena Lintony DO Work Phone: [employer] 04-17-2025 08:40-0400 Systolic blood pressure 104 mm[Hg] Rowena Lintony DO Work Phone: [employer] [facility] 04-17-2025 05:00-0400 Body mass index (BMI) [Ratio] 31.14 kg/m2 Rowena Lintony DO Work Phone: [employer] 04-17-2025 05:00-0400 Body weight 92.9 kg Rowena Aguilar DO Work Phone: [employer] 04-17-2025 01:47-0400 Body temperature 97.2 [degF] Rowena Lintony DO Work Phone: [employer] [facility] 04-16-2025 16:41-0400 Body height 172.7 cm Rowena Lintony DO Work Phone: [employer] 04-13-2025 04:37-0400 SaO2% (BldA) [Mass fraction] 95.1 % Rowena Lintony DO Work Phone: [employer] [facility] 04-08-2025 21:01-0400 SaO2% (BldA) [Mass fraction] 97 % Rowena Lintony DO Work Phone: [employer] 04-08-2025 17:02-0400 SaO2% (BldA) [Mass fraction] 96.1 % Rowena Aguilar DO Work Phone: [facility] Encounters Encounter Date Encounter Type Care Provider Facility Start: 07-19-2025 End: 07-19-2025 Emergency department patient visit PCP NONE [facility] Comment on above: Symptomatic anemia ( Primary Dx) Start: 07-19-2025 ambulatory Ravi MENSAH Facili ty:[facility] Start: 07-07-2025 ambulatory Ravi Murray ty:[facility] Start: 07-06-2025 End: 07-07-2025 Telephone encounter Eber Hess MD Work Phone: [facility] [employer] Start: 07-05-2025 ambulatory Ravi MENSAH Facili ty:[facility] Start: 06-28-2025 ambulatory Ravi MENSAH Facili ty:[facility] Start: 06-24-2025 End: 06-24-2025 Documentation procedure Yamilka Holloway PROGRAM SCHEDULE CLERK - EMS DRIVER Work Phone: [facility] [place] Start: 06-24-2025 End: 06-25-2025 Telephone encounter Eber Hess MD Work Phone: [facility] [employer] Comment on above: Release of Informati on (BMP, vitals, and medication notes ) Start: 06-24-2025 ambulatory Ravi MENSAH Facili ty:[facility] Start: 06-21-2025 End: 06-22-2025 Emergency department patient visit Sagar Gilliam DO Work Phone: [facility] Comment on above: Anemia due to chroni c kidney disease, unspecified CKD stage (Primary Dx) Start: 06-21-2025 [facility] Facility :[facility] Start: 06-17-2025 End: 06-17-[address] [facility] Start: 06-17-2025 End: 06-17-[address] [facility] Start: 06-17-2025 End: 06-17-2025 Office outpatient visit 40 minutes Eber Hess MD Work Phone: [facility] [place] Comment on above: Chronic systolic hea rt failure (HCC) (Primary Dx) Start: 05-06-2025 End: 05-12-2025 Home visit new pt unstabl/signif new prob 75 min Yamilkapradeep Holloway PROGRAM SCHEDULE CLERK - EMS DRIVER Work Phone: [facility] [place] Comment on above: Palliative care enco unter (Primary Dx); Pleural effusion; Acute on chronic heart failure, unspecified heart failure type (HCC); Debility Start: 05-03-2025 End: 05-03-2025 ambulatory ALEJANDRO QUEEN [facility] Start: 05-03-2025 End: 05-03-2025 Office outpatient visit 25 minutes Alejandro Queen PROGRAM SCHEDULE CLERK - EMS DRIVER Work Phone: [facility] - [place] Comment on above: Chronic systolic hea rt failure (HCC) (Primary Dx); Coronary artery disease involving mary's igloo coronary artery of mary's 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 angina pectoris; Pleural effusion; Acute kidney injury superimposed on chronic kidney disease (HCC) (HCC); 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 chronic kidney disease (HCC); PAC (premature atrial contraction); Abnormal CAT scan Start: 04-19-2025 End: 04-19-2025 Orders Only Katie Engle RN [facility] Palliative [facility] [place] Comment on above: Acute congestive hea rt failure, unspecified heart failure type (HCC) (Primary Dx) Start: 04-05-2025 End: 04-17-2025 Evaluation and management of inpatient Rowena Aguilar Work Phone: [facility] Cardiac Progressive Care Unit PCU 2E Start: 11-07-2020 End: 11-07-2020 [facility] Procedures Date Procedure Procedure Detail Performing Clinician Start: 07-19-2025 Blood typing serologic abo Josefina Rose MD Work Phone: Start: 07-19-2025 End: 07-19-2025 TRANSFUSE RED BLOOD CELLS Josefina Rose MD Work Phone: Start: 07-19-2025 Antibody screen ALEJANDRO QUEEN Comment on above: Performed By: #### L [id number] ####Estimator And Drafter Supervisor: UNA NAVARRO ([phone])[facility] BLOOD [facility] ([facility])[address] Start: 07-19-2025 Blood count complete auto&auto difrntl wbc Josefina Rose MD Work Phone: Start: 07-19-2025 Blood typing serologic abo Josefina Rose MD Work Phone: Start: 07-19-2025 Manual differential performed [Presence] in Blood Josefina Rose MD Work Phone: Start: 06-21-2025 Compatibility each u nit electronic Alannah D'Lakhwinder PA-C Work Phone: Start: 06-21-2025 End: 06-22-2025 TRANSFUSE RED BLOOD CELLS Alannah D'Ami co PA-C Work Phone: Start: 06-21-2025 Ecg routine ecg w/le ast 12 lds trcg only w/o i&r Sagar A Gombash DO Work Phone: Start: 06-21-2025 Antibody screen ALEJANDRO QUEEN Comment on above: Performed By: #### L [id number] ####Estimator And Drafter Supervisor: UNA NAVARRO ([phone])[facility] BLOOD [facility] ([facility])[address] Start: 06-21-2025 Basic metabolic pane l calcium total Alannah D'Lakhwinder PA-C Work Phone: Start: 06-21-2025 Blood typing serologic abo Alannah D'Lakhwinder PA-C Work Phone: Start: 06-21-2025 Manual Differential panel - Blood Alannah D'Lakhwinder PA-C Work Phone: Start: 06-17-2025 Basic metabolic pane l calcium total Eber Hess MD Work Phone: Start: 06-17-2025 Follow-up visit ALEJANDRO QUEEN Start: 05-03-2025 Follow-up visit ALEJANDRO QUEEN Start: 04-17-2025 Comprehensive metabo lic panel Precious Lewis MD Work Phone: Start: 04-17-2025 Manual Differential panel - Blood Precious Lewis MD Work Phone: Start: 04-16-2025 Comprehensive metabo lic panel Precious Lewis MD Work Phone: Start: 04-16-2025 Manual Differential panel - Blood Precious Lewis MD Work Phone: Start: 04-15-2025 OXYGEN THERAPY Precious dawn MD Work Phone: Start: 04-15-2025 BEDSIDE SPIROMETRY Lizeth Farmer PROGRAM SCHEDULE CLERK - EMS DRIVER Work Phone: Start: 04-15-2025 Blood occult peroxid ase actv qual feces 1-3 spec Albaro Hernández MD Work Phone: Start: 04-15-2025 Radiologic exam ches t single view Yesi Farmer PROGRAM SCHEDULE CLERK - EMS DRIVER Work Phone: Start: 04-15-2025 Comprehensive metabo lic panel Precious Lewis MD Work Phone: Start: 04-15-2025 Manual Differential panel - Blood Precious Lewis MD Work Phone: Start: 04-14-2025 OXYGEN THERAPY Precious dawn MD Work Phone: Start: 04-14-2025 Thoracentesis needle /cath pleura w/imaging Yesi Farmer PROGRAM SCHEDULE CLERK - EMS DRIVER Work Phone: Start: 04-14-2025 Comprehensive metabo lic panel Precious Lewis MD Work Phone: Start: 04-14-2025 Manual Differential panel - Blood Precious Lewis MD Work Phone: Start: 04-13-2025 OXYGEN THERAPY Precious dawn MD Work Phone: Start: 04-13-2025 Radiologic exam ches t single view Marian Casarez PROGRAM SCHEDULE CLERK - EMS DRIVER Work Phone: Start: 04-13-2025 Ecg routine ecg w/le ast 12 lds trcg only w/o i&r Marian Hawkinsmark PROGRAM SCHEDULE CLERK - [facility] Work Phone: Start: 04-13-2025 Blood gases any comb ination ph pco2 po2 co2 hco3 Yesi Farmer PROGRAM SCHEDULE CLERK [facility] Work Phone: Start: 04-13-2025 Comprehensive metabo [...] ches t single view Alejandro Queen PROGRAM SCHEDULE CLERK [facility] Work Phone: Start: 04-11-2025 OXYGEN THERAPY Precious [...] Santos Work Phone: Start: 04-05-2025 Antibody screen ALEJANDRO QUEEN Comment on above: Performed By: #### L [id number] ####Estimator And Drafter Supervisor: UNA NAVARRO ([phone])[facility] ([facility])[address] Start: 04-05-2025 ABO and Rh group [...] Activity Detail Author Start: 04-05-2030 Lipid panel [employer] [facility] Start: 06-21-2026 Creatinine measurement Creatinine Level [employer] [facility] Start: 06-21-2026 Potassium measurement Potassium Level [facility] Start: 06-17-2026 Creatinine measurement Creatinine Level [employer] [facility] Start: 06-17-2026 Potassium measurement Potassium Level [employer] [facility] Start: 04-17-2026 Creatinine measurement [employer] [facility] Start: 04-17-2026 Potassium measurement [facility] Start: 04-06-2026 Echocardiography Echocardiogram [employer] [facility] Start: 04-06-2026 [employer] [facility] Start: 11-03-2025 Depression Monitoring Depression Monitoring [employer] [facility] Start: 09-13-2025 End: 09-13-2025 Patient encounter procedure 09/13/2025 10:40 AM EST Office Visit [facility] - [place] [address] [place] [id number] Eber Hess MD [address] [place] [address] [facility] - [place] Start: 06-17-2025 End: 06-17-2025 Patient encounter procedure 06/17/2025 10:20 AM EDT Office Visit [facility] [place] [address] [place] [phone] Eber Hess MD [address] [place] [address] [facility] - [place] Start: 05-18-2025 End: 05-18-2025 ambulatory [facility] Pul[facility] and Sleep Medicine [facility] Start: 05-18-2025 End: 05-18-2025 Patient encounter procedure 05/18/2025 9:15 AM EDT Office Visit [facility] Pulmonary and Sleep Medicine [facility] [address] [place] [address] Nelson Garcia MD [address] [facility] [address] [place] [address] [facility] Pul[facility] and Sleep Medicine [facility] Start: 05-10-2025 COVID-19 Vaccine ( season) COVID-19 Vaccine ( season) [facility] Start: 05-10-2025 Influenza vaccination Influenza Vaccine (#1) [facility] Start: 05-10-2025 [facility] Start: 04-22-2025 End: 04-22-2025 ambulatory [facility] [place] Start: 04-22-2025 End: 04-22-2025 Patient encounter procedure 04/22/2025 10:00 AM EDT Office Visit [facility] - [place] [address] [place] [phone] Marian Casarez APRN - [place] [address] [address] [facility] [place] Start: 05-10-2024 COVID-19 Vaccine ( season) COVID-19 Vaccine ( season) [facility] Start: 05-10-2024 [facility] Start: 2011 RSV Immunization for Adults (1 - 1-dose 75+ series) RSV Immunization for Adults (1 - 1-dose 75+ series) [facility] Start: 2011 [facility] Start: 1986 Zoster Vaccines (1 of 2) Zoster Vaccines (1 of 2) [facility] Start: 1986 [facility] Start: 1955 DTaP/Tdap/Td Vaccines (1 - Tdap) DTaP/Tdap/Td Vaccines (1 - Tdap) [facility] Start: 1955 Pneumococcal Vaccine: 50+ Years (1 of 2 - PCV) Pneumococcal Vaccine: 50+ Years (1 of 2 - PCV) [facility] Start: 1955 [facility] Start: 1948 Depression Monitoring Depression Monitoring [facility] Start: 1948 [facility] Start: 1936 Medicare Annual Wellness (AWV) Medicare Annual Wellness (AWV) [facility] Start: 1936 [facility] Bedside spirometry [facility] Work Phone: End: 04-05-2025 Hemoglobin [Mass/volume] in Blood [facility] Work Phone: End: 04-05-2025 Hemoglobin.gastrointestina l.lower [Presence] in Stool by Immunoassay --1st specimen [facility] Work Phone: Immunizations Immunization Date Immunization Notes Care Provider Fa cility 12-05-2020 Covid (Moderna) [facility] Work Phone: 11-07-2020 Covid (Modern) [facility] Work Phone: 06-30-2020 influenza virus vaccine, unspecified formulation Katie Engle RN [facility] Payers Date Payer Category Payer Self-pay [id number] 2017 [employer] [place] [facility] [id number] 2017 Medicare supplementa l policy (as second payer) [id number] [id number] 2017 Unknown [id number] 2001 Medicare [id number] [id number]. [id number] [id number] 2001 Medicare [id number] Unknown [id number] Unknown [id number] Unknown [id number] Unknown [id number] Unknown [id number] Unknown [id number] Social History Date Type Detail Facility Tobacco smoking stat us NHIS Unknown if ever smoked [facility] Work Phone: Start: 1935 Sex Assigned At Male [facility] Work Phone: Start: 04-08-2025 End: 05-03-2025 Tobacco smoking status NHIS Never smoked tobacco [facility] Start: 04-08-2025 End: 05-03-2025 History of Social function [facility] Start: 04-08-2025 End: 05-03-2025 [facility] [employer] [facility] Has the [employer], [employer], or water [employer] threatened to shut off services in your home in past 12Mo No [facility] How often to you hav e a drink containing alcohol? Never [facility] How many standard drinks containing alcohol do you have on a typical day? [facility] (I/We) worried landon er (my/our) food would run out before (I/we) got money to buy more. Never true [facility] Start: 1935 Sex assigned at [facility] Start: 04-05-2025 Sex Male (finding) [facility] Start: 05-03-2025 End: 06-15-2025 Tobacco use and exposure Smokeless tobacco non-user [facility] Start: 06-15-2025 [facility] History of tobacco use Current smoker [facility] History of tobacco use Cigarette Smoker [facility] Start: 06-17-2025 Alcoholic beverage intake Ex-drinker (finding) [facility] Goals Date Patient Goal Desired Activity /State Functional Status Date Assessment Result Facility 07-19-2025 Total score [AUDIT-C] 0 07/19/20 10:59 AM Luci Mendez RN [facility] 05-03-2025 Patient Health [facility] ionnaire 2 item (PHQ-2) [Reported] [facility] Clinical Notes 04-05-2025 to 07-19-2025 May Jarquin RN - 07/19/2025 7:14 PM Ephraim Jarquin RN - 07/19/2025 7:14 PM Ephraim Jarquin RN - 07/19/2025 6:26 PM Ephraim Jarquin RN - 07/19/2025 5:28 PM ESTDischarge Instructions Note Date & Type Note Facility 07-19-2025 Emergency department Note [facility] arrived to transport pt to home facility . Pt transferred to stretcher without difficulty. Pt A&O, calm, and cooperative, no signs of distress noted. VS stable. Resp even, non labored. [facility] 07-19-2025 Emergency department Note [facility] arrived to transport pt to home facility . Pt transferred to stretcher without difficulty. Pt A&O, calm, and cooperative, no signs of distress noted. VS stable. Resp even, non labored. Report given to [facility]. [facility] H&H not needed per Dr. Rose. Ok to dc 30 mins after unit is complete. Meal order placed This RN sat bedside for the first 15 mins of blood transfusion. Pt denied c/o any transfusion reaction symptoms. Pt's vitals rechecked before leaving the room. [facility] ED EMERGENCY DEPARTMENT ENCOUNTER Pt Name: Mary Charles Birthdate 1935 Date of evaluation: 07/19/2025 Provider: Josefina Rose MD CHIEF COMPLAINT Chief Complaint Patient presents with Other Low hemoglobin HISTORY OF PRESENT ILLNESS (Location/Symptom, Timing/Onset,Context/Setting, Quality, Duration, Modifying Factors, Severity) Note limiting factors. Mary Charles is a 89 y.o. male who presents to the emergency department with low hemoglobin. He says he feels a little bit weak. He had his blood work tested and it was 7.1. He receives transfusions between 7 and 8 because he has coronary artery disease. He denies any chest pain. His blood count was 7.1 on 06/15/2025 patient is in a retirement. Patient is wheelchair-bound. HPI Historian is the patient Nurse's notes for past medical history, surgical history, social history were reviewed. Medications and allergies reviewed. PAST MEDICAL HISTORY Medical History[1] SURGICALHISTORY Surgical History[2] CURRENT MEDICATIONS Previous Medications ATORVASTATIN (LIPITOR) 20 MG TABLET Take 1 tablet (20 mg) by mouth Nightly. METOPROLOL SUCCINATE XL (TOPROL-XL) 25 MG 24 HR TABLET Take 1 tablet (25 mg) by mouth daily. Do not crush or chew. SENNA-DOCUSATE SODIUM (SENOKOT-S) 8.6-50 MG TABLET Take 2 tablets by mouth 2 times daily. TORSEMIDE 40 MG TABLET Take 40 mg by mouth daily. Patient has no known allergies. FAMILY HISTORY Family History[3] SOCIAL HISTORY Social History[4] SCREENINGS PHYSICAL EXAM (up to 7 for level 4, 8 or more for level 5) @EDTRIAGEVSS@ Appropriate PPE including n 95, gown, gloves, goggles where worn when appropriate with this patient. Physical Exam General awake alert appropriate nontoxic appearance slightly pale in appearance. Heart is regular. Lungs are clear. Ab soft Skin no rash or lesion neurologic intact. DIAGNOSTIC RESULTS RADIOLOGY: Interpretation per the Radiologist below, if availableat the time of this note: No orders to display ED BEDSIDE ULTRASOUND: Performed by ED Physician - none LABS: Labs Reviewed CBC WITH AUTO DIFFERENTIAL - Abnormal Result Value Auto WBC 15.6 (*) RBC 2.67 (*) Hemoglobin 7.8 (*) Hematocrit 24.6 (*) MCV 92.1 MCH 29.2 MCHC 31.7 RDW 14.0 Platelets 581 (*) MPV 8.3 (*) MANUAL DIFFERENTIAL - Abnormal Neutrophils % 66 Lymphocytes % 21 Monocytes % 9 Eosinophils % 2 Basophils % 2 Neutrophils Absolute 10.3 (*) Lymphocytes Absolute 3.3 Monocytes Absolute 1.4 (*) Eosinophils Absolute 0.3 Basophils Absolute 0.3 (*) Hypochromia Slight (*) Polychromasia Slight (*) Ovalocytes Slight (*) WBC Morphology Normal PLT Morphology Normal Total Counted 100 Differential Method Manual differential performed BLOOD TYPE AND SCREEN GEL ABO Grouping A Antibody Screen NEG Rh Type NEG HEMOGLOBIN AND HEMATOCRIT, BLOOD PREPARE RBC PRODUCT CODE [id number] Unit Number [id number] Unit ABO A Unit RH NEG Crossmatch interpretation COMP Dispense Status Transfused Blood Expiration Date [id number] Product Blood Type 0600 Unit Volume 300 All other labs were within normal range or not returned as of thisdictation. EMERGENCYDEPARTMENT COURSE and DIFFERENTIAL DIAGNOSIS/MDM: Vitals: Vitals: 07/19/25 1058 07/19/25 1341 BP: 110/62 115/64 BP Location: Left arm Left arm Patient Position: Sitting Sitting Pulse: 72 67 Resp: 18 17 Temp: 36.7 C (98 F) 36.7 C (98 F) TempSrc: Temporal Oral SpO2: 95% 99% Medical Decision Making Amount and/or Complexity of Data Reviewed Labs: ordered. Risk Prescription drug management. EMERGENCY DEPARTMENT COURSE and DIFFERENTIAL DIAGNOSIS/MDM: Vitals: Vitals: 07/19/25 1058 07/19/25 1341 BP: 110/62 115/64 BP Location: Left arm Left arm Patient Position: Sitting Sitting Pulse: 72 67 Resp: 18 17 Temp: 36.7 C (98 F) 36.7 C (98 F) TempSrc: Temporal Oral SpO2: 95% 99% The patient presented with a chief complaint of low hemoglobin. The differential diagnosis associated with this patient's presentation includes bleed blood loss anemia ACS. Our workup consisted of ordering/reviewing CBC. Patient's hemoglobin came back at 7.8. Patient has known coronary artery disease. Given his fatigue given his known coronary disease I felt transfusion 1 unit of blood was clinically indicated given his history reviewing his records. Patient received 1 unit of blood and then we discharged back to his extended care facility. Diagnoses as of 07/19/25 1352 Symptomatic anemia Diagnostics considered but not indicated based on history, physical, testing: None External records reviewed: Outpatient records revealing for prior blood transfusion received unit of blood 06/21/2025 patient does have a history of CHF seen cardiology 06/17/2025 Radiologic diagnostics interpreted by me: film images such as CT, Ultrasound and MRI are read by the radiologist. Plain radiographic images are visualized and preliminarily interpreted by the emergency physician with the below findings: None Discussions with other clinicians: None none Chronic conditions impacting care: Blood loss anemia, coronary disease CHF Social determinants of health affecting care: Lives in retirement Shared decision making: Patient agrees to treatment plan ED Medications managed: Medications sodium chloride 0.9 % infusion (has no administration in time range) Prescription drugs prescribed: PROCEDURES: Unless otherwise noted below, none Procedures IMPRESSION 1. Symptomatic anemia DISPOSITION/PLAN DISPOSITION Discharge 07/19/2025 01:51:41 PM PATIENT REFERRED TO: Ravi Kirk DO [address] [place] [address] [address] [place] [id number] In 1 week DISCHARGE MEDICATIONS: New Prescriptions No medications on file @[facility]([id number]:LAST:1)@ (Comment: Please notethis report has been produced using speech recognition software and may contain errors related to that system including errors in grammar, punctuation, and spelling, as well as words and phrases that may be inappropriate.If there is any questions or concerns please feel free to contact the dictating provider for clarification). Josefina Rose MD (electronically signed) Attending Emergency Physician [1] No past medical history on file. [2] No past surgical history on file. [3] Family History Problem Relation Name Age of Onset Tuberculosis Father [4] Social History Socioeconomic History Marital status: Tobacco Use Smoking status: Former Current packs/day: 0.25 Types: Cigarettes Smokeless tobacco: Never Vaping Use Vaping status: Never Used Substance and Sexual Activity Alcohol use: Not Currently Drug use: Never Sexual activity: Not Currently Partners: Female Social Drivers of Health Food Insecurity: No Food Insecurity (04/08/2025) Hunger Vital Sign Worried About Running Out of Food in the Last Year: Never true Ran Out of Food in the Last Year: Never true Transportation Needs: No Transportation Needs (04/08/2025) PRAPARE - Transportation Lack of Transportation (Medical): No Lack of Transportation (Non-Medical): No Intimate Partner Violence: Not At Risk (04/08/2025) Humiliation, Afraid, Rape, and Kick questionnaire Fear of Current or Ex-Partner: No Emotionally Abused: No Physically Abused: No Sexually Abused: No Housing Stability: Low Risk (04/08/2025) Housing Stability Vital Sign Unable to Pay for Housing in the Last Year: No Number of Times Moved in the Last Year: 0 Homeless in the Last Year: No Josefina Rose MD 07/19/25 1352 documented in this encounter [facility] 07-19-2025 Emergency department [facility] 07-19-2025 Emergency department Note Post H&H not needed per Dr. Rose. Ok to dc 30 mins after unit is complete. [facility] 07-19-2025 Emergency department Note Meal order placed [facility] 07-19-2025 Emergency department Note This RN sat bedside for the first 15 mins of blood transfusion. Pt denied c/o any transfusion reaction symptoms. Pt's vitals rechecked before leaving the room. [facility] 07-19-2025 Hospital Discharg e instructions Josefina Rose MD - 07/19/2025 1:52 PM EST Continue all current medications. Would recommend that you get a repeat CBC within 5 to 7 days. This can be done by your primary care physician. The following attachments cannot be sent through Care Everywhere.Normocytic Normochromic Anemia Discharge Instructions (Djiboutian)documented in this encounter [facility] 07-19-2025 Physician Emergency department Note [facility] ED EMERGENCY DEPARTMENT ENCOUNTER Pt Name: Mary Charles Birthdate 1935 Date of evaluation: 07/19/2025 Provider: Josefina Rose MD CHIEF COMPLAINT Chief Complaint Patient presents with Other Low hemoglobin HISTORY OF PRESENT ILLNESS (Location/Symptom, Timing/Onset,Context/Setting, Quality, Duration, Modifying Factors, Severity) Note limiting factors. Mary Charles is a 89 y.o. male who presents to the emergency department with low hemoglobin. He says he feels a little bit weak. He had his blood work tested and it was 7.1. He receives transfusions between 7 and 8 because he has coronary artery disease. He denies any chest pain. His blood count was 7.1 on 06/15/2025 patient is in a retirement. Patient is wheelchair-bound. HPI Historian is the patient Nurse's notes for past medical history, surgical history, social history were reviewed. Medications and allergies reviewed. PAST MEDICAL HISTORY Medical History[1] SURGICALHISTORY Surgical History[2] CURRENT MEDICATIONS Previous Medications ATORVASTATIN (LIPITOR) 20 MG TABLET Take 1 tablet (20 mg) by mouth Nightly. METOPROLOL SUCCINATE XL (TOPROL-XL) 25 MG 24 HR TABLET Take 1 tablet (25 mg) by mouth daily. Do not crush or chew. SENNA-DOCUSATE SODIUM (SENOKOT-S) 8.6-50 MG TABLET Take 2 tablets by mouth 2 times daily. TORSEMIDE 40 MG TABLET Take 40 mg by mouth daily. Patient has no known allergies. FAMILY HISTORY Family History[3] SOCIAL HISTORY Social History[4] SCREENINGS PHYSICAL EXAM (up to 7 for level 4, 8 or more for level 5) @EDTRIAGEVSS@ Appropriate PPE including n 95, gown, gloves, goggles where worn when appropriate with this patient. Physical Exam General awake alert appropriate nontoxic appearance slightly pale in appearance. Heart is regular. Lungs are clear. Ab soft Skin no rash or lesion neurologic intact. DIAGNOSTIC RESULTS RADIOLOGY: Interpretation per the Radiologist below, if availableat the time of this note: No orders to display ED BEDSIDE ULTRASOUND: Performed by ED Physician - none LABS: Labs Reviewed CBC WITH AUTO DIFFERENTIAL - Abnormal Result Value Auto WBC 15.6 (*) RBC 2.67 (*) Hemoglobin 7.8 (*) Hematocrit 24.6 (*) MCV 92.1 MCH 29.2 MCHC 31.7 RDW 14.0 Platelets 581 (*) MPV 8.3 (*) MANUAL DIFFERENTIAL - Abnormal Neutrophils % 66 Lymphocytes % 21 Monocytes % 9 Eosinophils % 2 Basophils % 2 Neutrophils Absolute 10.3 (*) Lymphocytes Absolute 3.3 Monocytes Absolute 1.4 (*) Eosinophils Absolute 0.3 Basophils Absolute 0.3 (*) Hypochromia Slight (*) Polychromasia Slight (*) Ovalocytes Slight (*) WBC Morphology Normal PLT Morphology Normal Total Counted 100 Differential Method Manual differential performed BLOOD TYPE AND SCREEN GEL ABO Grouping A Antibody Screen NEG Rh Type NEG HEMOGLOBIN AND HEMATOCRIT, BLOOD PREPARE RBC PRODUCT CODE [id number] Unit Number [id number] Unit ABO A Unit RH NEG Crossmatch interpretation COMP Dispense Status Transfused Blood Expiration Date [id number] Product Blood Type 0600 Unit Volume 300 All other labs were within normal range or not returned as of thisdictation. EMERGENCYDEPARTMENT COURSE and DIFFERENTIAL DIAGNOSIS/MDM: Vitals: Vitals: 07/19/25 1058 07/19/25 1341 BP: 110/62 115/64 BP Location: Left arm Left arm Patient Position: Sitting Sitting Pulse: 72 67 Resp: 18 17 Temp: 36.7 C (98 F) 36.7 C (98 F) TempSrc: Temporal Oral SpO2: 95% 99% Medical Decision Making Amount and/or Complexity of Data Reviewed Labs: ordered. Risk Prescription drug management. EMERGENCY DEPARTMENT COURSE and DIFFERENTIAL DIAGNOSIS/MDM: Vitals: Vitals: 07/19/25 1058 07/19/25 1341 BP: 110/62 115/64 BP Location: Left arm Left arm Patient Position: Sitting Sitting Pulse: 72 67 Resp: 18 17 Temp: 36.7 C (98 F) 36.7 C (98 F) TempSrc: Temporal Oral SpO2: 95% 99% The patient presented with a chief complaint of low hemoglobin. The differential diagnosis associated with this patient's presentation includes bleed blood loss anemia ACS. Our workup consisted of ordering/reviewing CBC. Patient's hemoglobin came back at 7.8. Patient has known coronary artery disease. Given his fatigue given his known coronary disease I felt transfusion 1 unit of blood was clinically indicated given his history reviewing his records. Patient received 1 unit of blood and then we discharged back to his extended care facility. Diagnoses as of 07/19/25 1352 Symptomatic anemia Diagnostics considered but not indicated based on history, physical, testing: None External records reviewed: Outpatient records revealing for prior blood transfusion received unit of blood 06/21/2025 patient does have a history of CHF seen cardiology 06/17/2025 Radiologic diagnostics interpreted by me: film images such as CT, Ultrasound and MRI are read by the radiologist. Plain radiographic images are visualized and preliminarily interpreted by the emergency physician with the below findings: None Discussions with other clinicians: None none Chronic conditions impacting care: Blood loss anemia, coronary disease CHF Social determinants of health affecting care: Lives in retirement Shared decision making: Patient agrees to treatment plan ED Medications managed: Medications sodium chloride 0.9 % infusion (has no administration in time range) Prescription drugs prescribed: PROCEDURES: Unless otherwise noted below, none Procedures IMPRESSION 1. Symptomatic anemia DISPOSITION/PLAN DISPOSITION Discharge 07/19/2025 01:51:41 PM PATIENT REFERRED TO: Rvai Kirk DO [address] [place] [id number] In 1 week DISCHARGE MEDICATIONS: New Prescriptions No medications on file @[facility]([id number]:LAST:1)@ (Comment: Please notethis report has been produced using speech recognition software and may contain errors related to that system including errors in grammar, punctuation, and spelling, as well as words and phrases that may be inappropriate.If there is any questions or concerns please feel free to contact the dictating provider for clarification). Josefina Rose MD (electronically signed) Attending Emergency Physician [1] No past medical history on file. [2] No past surgical history on file. [3] Family History Problem Relation Name Age of Onset Tuberculosis Father [4] Social History Socioeconomic History Marital status: Tobacco Use Smoking status: Former Current packs/day: 0.25 Types: Cigarettes Smokeless tobacco: Never Vaping Use Vaping status: Never Used Substance and Sexual Activity Alcohol use: Not Currently Drug use: Never Sexual activity: Not Currently Partners: Female Social Drivers of Health Food Insecurity: No Food Insecurity (04/08/2025) Hunger Vital Sign Worried About Running Out of Food in the Last Year: Never true Ran Out of Food in the Last Year: Never true Transportation Needs: No Transportation Needs (04/08/2025) PRAPARE - Transportation Lack of Transportation (Medical): No Lack of Transportation (Non-Medical): No Intimate Partner Violence: Not At Risk (04/08/2025) Humiliation, Afraid, Rape, and Kick questionnaire Fear of Current or Ex-Partner: No Emotionally Abused: No Physically Abused: No Sexually Abused: No Housing Stability: Low Risk (04/08/2025) Housing Stability Vital Sign Unable to Pay for Housing in the Last Year: No Number of Times Moved in the Last Year: 0 Homeless in the Last Year: No Josefina Rose MD 07/19/25 1352 [facility] 07-07-2025 Telephone encounter Note Darby called back to verify the diuretic instructions; she had the Lasix written down, so I verified that it was actually torsemide. She verbalized understanding and was thankful for the call. [facility] 07-07-2025 Miscellaneous Notes Darby called back [...] called and spoke to nurse Khushboo from [facility]-she took verbal order for torsemide and notes they are continuing to follow his anemia with hemograms; is occult stool was negative. She was thankful for the call back. Images from the original note were not included. Cr 1.9, K+ 3.7, hemoglobin 7.1 on 07/05/25. BP's mostly 100-110's/50/60's; one SBP outlier of 94, one outlier of 121. HR's 60-70's. Note from nursing: [facility] faxed 07/05/25 BMP, and CBC, and vitals. Records to be scanned to chart. Sharita from [facility] called o report weight gain. 07/03: #189, 07/04: #191, 07/06: #191.4, and today #191.6. He had labs recently and HG is 7.1. She is faxing his recent vitals and labs. We scheduled follow up with 09/13/25. Otherwise he is feeling fine. documented in this encounter [facility] 07-07-2025 Telephone encounter Note Per Dr Hess "Ok to take etc 20 mg torsemide if weight gain, leg swelling or sob. Anemia - recommend followup with PCP and GI" I called and spoke to nurse Khushboo from [facility]-she took verbal order for torsemide and notes they are continuing to follow his anemia with hemograms; is occult stool was negative. She was thankful for the call back. [facility] 07-06-2025 Telephone encounter Note Images from the original note were not included. Cr 1.9, K+ 3.7, hemoglobin 7.1 on 07/05/25. BP's mostly 100-110's/50/60's; one SBP outlier of 94, one outlier of 121. HR's 60-70's. Note from nursing: [facility] 07-06-2025 Telephone encounter Note [facility] faxed 07/05/25 BMP, and CBC, and vitals. Records to be scanned to chart. [facility] 07-06-2025 Telephone encounter Note Sharita from [facility] called o report weight gain. 07/03: #189, 07/04: #191, 07/06: #191.4, and today #191.6. He had labs recently and HG is 7.1. She is faxing his recent vitals and labs. We scheduled follow up with 09/13/25. Otherwise he is feeling fine. [facility] 06-24-2025 History of Presen t illness Narrative Attempted to meet with pt. He no longer resides here. Facility uncertain where he has moved to. Message left on primary contacts number [place]re[place] to return call to the palliative group at [phone] documented in this encounter [facility] 06-24-2025 Telephone encounter Note Per Dr Hess: "Would stop aldactone all together due to Cr 1.8 and low normal BP. Also stop hydralazine and see how bp is " I called and spoke to the nurse, Kylah at [facility] relaying note from Dr eHss. She verbalized understanding-she noted Mary had a [...] likely give him an additional torsemide today. [facility] 06-24-[address] Hess: "Would stop aldactone all together due to Cr 1.8 and low normal BP. Also stop hydralazine and see how bp is " I called and spoke to the nurseKylah at [facility] relaying note from Dr Hess. [...] was 2.05 on 06/17/25. FYI: Went to [facility] ER on 06/21/25 for blood transfusion as HGB at facility was 6.9 when they checked it 06/21/25. Labs from [facility] Today: 06/24/25 BMP, blood pressure, pulse summary, and medication notes faxed from [facility]. Records scanned to Media. documented in this encounter [facility] 06-24-2025 Telephone encounter Note Images from [...] was 2.05 on 06/17/25. FYI: Went to [facility] ER on 06/21/25 for blood transfusion as HGB at facility was 6.9 when they checked it 06/21/25. Labs from [facility] Today: [facility] 06-24-2025 Telephone encounter Note 06/24/25 BMP, blood pressure, pulse summary, and medication notes faxed from [facility]. Records scanned to Media. [facility] 06-21-2025 Emergency department Note This RN at bedside for first 15 minutes of blood transfusion. Pt tolerating transfusion. VS updated in system. [facility] 06-21-2025 Emergency department Note This RN at bedside for first 15 minutes of blood transfusion. Pt tolerating transfusion. VS updated in system. Emergency Department Encounter [facility] ED Patient: Mary Charles : 1935 [...] the emergency department lab work today from nursing home facility showed hemoglobin of 6.8. Patient is [...] unit of blood and discharged back to nursing home facility. Diagnostics interpreted by me: I personally [...] DO 06/21/252211 Patient arrives via EMS from [facility] following bloodwork that showed low hemoglobin. No overt signs of bleeding on arrival. Patient A&O4. Patient does endorse previous blood transfusions. documented in this encounter [facility] 06-21-2025 Emergency department Triage note Patient arrives via EMS from [facility] following bloodwork that showed low hemoglobin. No overt signs of bleeding on arrival. Patient A&O4. Patient does endorse previous blood transfusions. [facility] 06-21-2025 Physician Emergency department Note Emergency Department Encounter [facility] ED Patient: Mary Charles : 1935 [...] the emergency department lab work today from [facility] showed hemoglobin of 6.8. Patient is otherwise [...] unit of blood and discharged back to nursing home facility. Diagnostics interpreted by me: I personally [...] [employer] Sagar Gilliam DO 06/21/252211 [facility] Work Phone: 06-17-2025 History of Presen t illness Narrative [facility] Cardiology [facility] CARDIOLOGY - [address] [facility] [address] Dept: [phone] Dept Visit type: Established : 1935 Chief Complaint: Chief Complaint Patient presents with Follow-up 6 Week History of Present Illness: Mary Charles is a 89 y.o. male with HFrEF, Coronary artery disease who is here for followup. Prior events : He presented to [facility] 03/2025 with progressive shortness of breath, [...] tablet, Rfl: 1 documented in this encounter [facility] 05-06-2025 History of Presen t illness Narrative Images from the original note were not included. [facility] Palliative Care Site of Care: [facility] Chief Complaint: Mary Charles is [...] hospice conversation today Debility Pt now at [facility] Working with PT/OT Palliative encounter Will [...] Falls: No Current Interventions: PT, OT, and MCFP Current Assistive Devices: walker and wheelchair ROS: See palliative care ROS/ESAS below; All other systems were reviewed and are negative. 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 [facility] CARDIOLOGY - [address] [facility] [address] Dept: [phone] Dept Visit type: Established : 1935 Reason [...] of EF 2. Coronary artery disease involving mary's igloo coronary artery of mary's 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 angina pectoris Assessment & Plan: [...] weeks (around 06/14/2025). Wants to establish in [place]. Subjective No prior history as he has not been to a doctor for many years He presented to [facility] 03/2025 with progressive shortness of breath, [...] history on file. documented in this encounter [facility] 05-03-2025 Evaluation + Plan note Associated Problem(s): Abnormal CAT scan CT abdomen with mural thickening involving the cecum and terminal ileum concern for neoplasm versus inflammation. Seen by GI with plan for EGD and colonoscopy once stable. -GI follow-up [facility] 05-03-2025 Miscellaneous Notes Associated Problem(s): [...] today Associated Problem(s): Coronary artery disease involving mary's igloo coronary artery of mary's 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 angina pectoris Suspected CAD causing [...] re-evaluation of EF documented in this encounter [facility] 05-03-2025 Evaluation + Plan note Associated Problem(s): PAC (premature atrial contraction) Noted to have irregular heart rhythm during hospitalization and multiple EKGs show sinus rhythm with frequent PACs. -Continue Toprol 25 mg p.o. daily [facility] 05-03-2025 Evaluation + Plan note [...] discharge. Hgb 8.2 per labs 04/26/2025 from [facility]. -No aspirin due to anemia - continue to monitor [facility] 05-03-2025 Evaluation + Plan note Associated Problem(s): Acute kidney injury superimposed on chronic kidney disease (HCC) (HCC) Creatinine 1.46 on admission. Peak creatinine 1.78. Most recent creatinine 1.8 per labs 04/26/2025 - Continue to monitor - may have to accept a higher creatinine to keep him out of HF [facility] 05-03-2025 Evaluation + Plan note Associated Problem(s): Pleural effusion Bedside thoracentesis 04/09/2025 with 1 L removed from the left and 600 mL removed from the right. Repeat left thoracentesis 04/14/2025 with 600 mL removed. - continue to monitor, appears euvolemic today [facility] 05-03-2025 Evaluation + Plan note Associated Problem(s): Coronary artery disease involving mary's igloo coronary artery of mary's 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 angina pectoris Suspected CAD causing HFrEF. NO angina. - no ASA 2/2 anemia - continue Toprol 25 mg po daily - continue atorvastatin 20 mg po daily - not a candidate or invasive workup due to anemia, advanced age and frailty [facility] 05-03-2025 Evaluation + Plan note [...] in 3 months for re-evaluation of EF [facility] 04-19-2025 History of Presen t illness Narrative Pt was followed by the Palliative Care Team during hospitalization at [facility]. Provider is recommending continued Palliative follow up in the community. Referral made referral to [facility] Palliative Care SNF team. documented in this encounter [facility] 04-17-2025 Nurse Note Report given to Flor MYERS at [facility]. All belongings sent with patient, including eyewear. HL removed, site WNL. RN contacted FRAMING SPECIALIST Marleny concerning attempt to wean patient to [...] very aggressively. 2 RN , 2 nursing education specialist were at bedside trying to calm him [...] within normal limits. documented in this encounter [facility] 04-17-2025 Miscellaneous Notes Patient Choice Patient Name: MARY CHARLES Date of : 1935 Share Number: 0 Method of Sharing: electronic Date of Sharin2025-04-08 13:13:49.000 Responding Recipient: [email or web address] Ranked Providers Sent Referral Rank: 2 Name: Monika Montoya [employer] Phone: [phone] Address: [address] [place] [address] Rank: 3 [facility]: [facility] [place]. Phone: [phone] Address: [address] [place] [address] Rank: 1 Name: Jan FUENTES Member Phone: [phone] Address: [address] [place] [address] All Providers Sent Referral Name: Monika LOZOYA Phone: [phone] Address: [address] [place] [address] Name: Stefany Tidwell, Aishwarya. Phone: [phone] Address: [address] [place] [address] Name: Jan FUENTES Member Phone: [phone] Address: [address] [place] [address] Care Management Progress Note Short Medical why still here: Pending placement. Planned Discharge Disposition: Nursing Home Facility ([facility] SNF) Barriers/Today we still Wait: Clinical stability [...] Requested cot transport for 1230 via [facility]. [facility] accepted for 1230. Notified bedside RN of transport time and number to call report. Notified facility of transport time and [facility] Spoke with daughter Anahy Charles at [phone] regarding transportation plan. Confirmed pickup time is 1230. Discussed patient may have a co-pay for ambulance depending on their individual insurance coverage. Advised daughter Anahy to call number on back of insurance card with questions or concerns. Tasked weekend TTC to follow for possible dc over the weekend. assessment manager to follow and assist as needed. 7000 Complete in HENS for SNF Jancedric Kirby per TCC request Care Management Progress [...] at that facility if he chooses. -Tasked SENIOR MAINFRAME DEVELOPER to complete and upload into [employer] 7000. Barriers/Today we still Wait: Clinical stability, [...] will still need placement at a facility. -assessment manager to follow and assist as needed. [...] family later on Saturday. Planned Discharge Disposition: Nursing Home Facility vs hospice Barriers/Today we still Wait: Receiving IV medication, clinical stability, Post-discharge arrangement completion (SNF vs hospice) assessment manager to follow and assist as needed. Length of Stay (Days): 9 GMLOS: 3.9 Family Communication Number Called: [phone] Name of Designated Family Senior Salesforce Developer: Anahy Charles Relationship to patient: Daughter Outcome: I spoke with the individual listed above Family Senior Salesforce Developer Updated on the Following: --provided medical update. [...] on Saturday. Signed, Bela Agustin APRN, CNP, [facility] Palliative Care/Hospice PGR [phone] Care Management Progress Note Short Medical why still here: did send bipap settings to [facility] and requested for them to obtain bipap unit for patient to utilize at their facility. Currently requiring oxygen at 1 liter. Anticipate probable dc tomorrow. Will need 7000 and transport arranged. Planned Discharge Disposition: Nursing Home Facility Barriers/Today we still Wait: Administering IV medications, Clinical stability, Facility pre-cert Length of Stay (Days): 8 GMLOS: 3.9 . Referral placed to SNF- [facility] via [facility] per TCC request. Await review and response regarding ability to accept. TCC notified. Care Management Progress Note Short Medical why still here: reviewed chart. Dgt has selected SNF choices virtually - 1. [facility] 2. [facility] 3. [facility]. Tasked SENIOR MAINFRAME DEVELOPER to create these referrals - will follow. Planned Discharge Disposition: Nursing Home Facility Barriers/Today we still Wait: Administering IV medications, Clinical stability, Facility pre-cert Length of Stay (Days): 7 GMLOS: 3.9 Called and spoke with deya Higginbotham of patient, and provided DC planning updates. [facility] willing to accept. Updates sent to facility. ICU Transfer Checklist Transfer Med Reconciliation (resume home meds if able, convert to PO if able) Complete Antibiotics (name, indication, duration, convert to PO if able) None Steroid (indication, duration, convert to PO if able) None Anticipated [place] Medications (ICU initiated) or Dose Changes and Indication No Permanently Discontinued Home Medications and Reason for medication contraindication No García Catheter (please remove if able. Note: place DC order) No Central Line (please remove if able. Note: place DC order) No Transfer Discussed with: Dr. Regan with [facility] If additional questions for ICU team within 24 hours of ICU transfer, page [phone] for clarifications. Will assume care as patient is being transferred out of ICU. D/w Dr Lewis via secure chat Images from the original note were not included. [facility] Palliative Care Transitions of Care Note [...] care of himself. -Consider medication for mood? -Coding Advisor support requested. -Monitor. Hx CKD III -CrCl [...] NAME: TBD, referrals have been sent to [facility], [facility] and [facility]. Follow up with palliative team on office [...] care and cardiology following. Planned Discharge Disposition: Nursing Home Facility Barriers/Today we still Wait: Clinical stability, Acid Painter recommendations (comment), Diagnostic workup, Administering IV medications, [...] need if SNF is recommended by PT. assessment manager to follow and assist as needed. Length of Stay (Days): 1 GMLOS: No GMLOS Documented documented in this encounter [facility] 04-17-2025 Note [facility] 04-17-2025 Hospital course Narrative [...] Your Medications These medications were sent to [facility] [address] [facility] [address] Hours: Saturday to Saturday 10 am to 6 pm atorvastatin 20 MG tablet hydrALAZINE 10 MG tablet metoprolol succinate XL 25 MG 24 hr tablet senna-docusate sodium 8.6-50 MG tablet spironolactone 25 MG tablet Torsemide 40 MG tablet DIET: Adult diet Regular; No Added Salt (3-4 gm) ACTIVITY: No restriction. COMPLEXITY OF FOLLOW UP: [x] Moderate Complexity: follow up within 7-14 calendar days (15703) [] Severe Complexity: follow up within 7 calendar days (25784) FOLLOW UP TESTING, PENDING RESULTS OR REFERRALS AT TRANSITIONAL CARE VISIT: [x] Yes [] No PENDING STUDIES: DISPOSITION: Skilled Facility FACILITY/HOME CARE AGENCY NAME: Follow up with Nelson Garcia MD [address] [facility] [address] Go on 05/18/2025 Pulmonary hospital follow-up at 9:15 AM Marian Casarez APRN - EMS DRIVER [address] [place] [address] Follow up on 04/22/2025 Cardiology follow-up at 10:00 AM. [facility] Gastroenterology - [address] [address] Follow up in 1 month(s) [...] 04/17/2025, 10:12 AM documented in this encounter [facility] 04-17-2025 History of Presen t illness Narrative [facility] [place] [facility] Cardiology /Electrophysiology Progress Note HPI / Interval [...] follow-up 04/22/2025 at 10 AM at the [facility] office with myself, Marian Casarez [...] No results found for: TROPDELTSEC Recent Labs 04/15/252 04/16/25 0339 04/17/25 0440 NA 139 140 138 K 3.5 3.6 3.6 CL 90* 87* 88* CO2 40* 43* 40* BUN 43* 46* 46* CREATININE 1.58* 1.81* 1.67* Recent Labs 04/15/2521104/16/25 0339 04/17/25 0440 WBC 12.4* 13.1* 12.0* [...] Daily torsemide, 40 mg, Oral, Daily [2] [facility] Respiratory Care Department Progress Note Comment or [...] care of himself. -Consider medication for mood? -Coding Advisor support requested. -Monitor. Hx CKD III -CrCl [...] wear PAP at night. S/p thoracentesis on 8 and then 8-6 again. Remains full code [...] in the note above. Bela Agustin, PROGRAM SCHEDULE CLERK - EMS DRIVER Palliative Care Assessments: Goals of care: Continue [...] other systems were reviewed and are negative. [place] Symptom Assessment Score [place] Score Pain Score (if non-verbal, add .FLACC [...] On: Kcal/kg Weight Used for Energy Requirements: Dudley Weight for Energy Calculation (kg): 70 kg Total Energy Requirements (kcals/day): 1431-5259 (25-30) Weight Used for Protein Requirements: Dudley Weight in Kg Used for Protein Requirements: [...] Body Weight: (none on file to review) [place] Body Weight (lbs) (Calculated): 154 lbs Dudley Body Weight (Kg) (Calculated): 70 kg % Dudley Body Weight (Calculated): 129.9 % BMI (kg/m2) [...] Continue current diet Kristin Duffy RD Contact: *[phone] or via Secure Chat Images from the original note were not included. OCCUPATIONAL THERAPY [facility] Treatment Note Name/MRN: Mary Charles ([id number]) Date of : 1935 Age: 89 y.o. Room/Bed: [facility]268/[facility] B Visit #: 4 out of 7 Discharge Recommendation: Nursing Home Facility Equipment Needed: No Assessment Pt tolerated [...] Daily Activity Raw Score: 14 ADL Inpatient [facility] G-Code Modifier: CK Goals Patient Stated Goal: [...] History: Medical History[1] LABS: CBC: Recent Labs 04/14/25 0457 04/15/25 0212 04/16/25 0339 WBC 12.3* 12.4* 13.1* RBC 3.27* [...] ANAHY CHARLES Mobile Relation: Daughter Preferred language: Djiboutian Telephoto Engineer needed? No Albaro Hernández MD Division of Hospitalist Medicine Acute care [facility] [1] History reviewed. No pertinent [...] from the original note were not included. [facility], Pulmonary Medicine [address] [place] [address] Patient - Mary Charles, Age - 89 y.o. - 1935 Room Number - B2-268/B2-268 B Consulting - Albaro Hernández MD Primary Care Physician - No primary care provider on file. [id number] Date of Admission - 04/05/2025 3:55 PM [...] Results from last 7 days Lab Units 04/16/2533804/15/2521104/14/25 0457 SODIUM mmol/L 140 139 140 POTASSIUM [...] Lab Units 04/16/25 03304/15/25 0212 04/14/25 0457 ALK PHOS U/L 55 [...] heart failure, unspecified heart failure type (HCC) [facility] Cardiology /Electrophysiology [...] 46* CREATININE 1.43* 1.58* 1.81* Recent Labs 04/14/2545604/15/2521104/16/259 WBC 12.3* 12.4* 13.1* HGB 7.6* 7.8* [...] Daily torsemide, 40 mg, Oral, Daily [2] [facility] Respiratory Care Department Progress Note Comment or [...] Respiratory in the care of this patient, [facility] [place] [facility] Cardiology /Electrophysiology Progress Note HPI / Interval [...] No results found for: TROPDELTSEC Recent Labs 04/13/2521304/14/2545604/15/25211 NA 139 140 139 K 3.4* 3.8 3.5 CL 93* 92* 90* CO2 36* 39* 40* BUN 37* 39* 43* CREATININE 1.46* 1.43* 1.58* Recent Labs 04/13/2521304/13/2542304/14/2545604/15/25211 WBC 12.7* -- 12.3* 12.4* HGB 7.8* [...] from the original note were not included. [facility], Pulmonary Medicine [address] [place] [address] Patient - Mary Charles, Age - 89 y.o. - 1935 Room Number - B2-268/B2-268 B Consulting - Albaro Hernández MD Primary Care Physician - No primary care provider on file. [id number] Date of Admission - 04/05/2025 3:55 PM [...] History: Medical History[1] LABS: CBC: Recent Labs 04/13/25 0214 04/13/25 04204/14/2545604/15/25211 WBC 12.7* -- 12.3* 12.4* RBC 3.36* [...] ANAHY CHARLES Mobile Relation: Daughter Preferred language: Djiboutian Telephoto Engineer needed? No Albaro Hernández MD Division of [...] ON 04/16/2025] polyethylene glycol (PEG) 3350 [4] [facility] Respiratory Care Department Progress Note Comment or [...] Respiratory in the care of this patient, [facility] [place] [facility] Cardiology /Electrophysiology Progress Note HPI / Interval [...] No results found for: TROPDELTSEC Recent Labs 04/12/2532404/13/2521304/14/25456 NA 139 139 140 K 3.7 3.4* 3.8 CL 95* 93* 92* CO2 37* 36* 39* BUN 40* 37* 39* CREATININE 1.53* 1.46* 1.43* Recent Labs 04/12/2532404/13/2521304/13/2542304/14/25456 WBC 12.0* 12.7* -- 12.3* HGB 7.4* [...] 55 - 100 % Final Alejandro Queen, [facility] Date Of Service 04/14/2025 [1] Images from the original note were not included. OCCUPATIONAL THERAPY [facility] Name/MRN: Mary Charles ([id number]) Date: 04/14/2025 Attempted to see pt for OT tx. Pt reported being very fatigued after getting cleaned up and working with PT this AM. Unable to encourage participation in OT tx at this time. Marleni Victor OT Images from the original note were not included. PHYSICAL THERAPY [facility] Treatment Note Name/MRN: Mary Charles ([id number]) Date of : 1935 Age: 89 y.o. [facility]: [facility] Visit #: 4 out of 5 Discharge Recommendation: Nursing Home Facility Equipment Needed: No Assessment Patient supine [...] ANAHY CHARLES Mobile Relation: Daughter Preferred language: Djiboutian Telephoto Engineer needed? No Albaro Hernández MD Division of Hospitalist Medicine [facility] [1] History reviewed. No pertinent [...] from the original note were not included. [facility], Pulmonary Medicine [address] [place] [address] Patient - Mary Charles, Age - 89 y.o. - 1935 Room Number - B2-268/B2-268 B Consulting - Albaro Hernández MD Primary Care Physician - No primary care provider on file. [id number] Date of Admission - 04/05/2025 3:55 PM [...] Results from last 7 days Lab Units 04/14/257 WBC AUTO 10*3/uL 12.3* HEMOGLOBIN g/dL 7.6* HEMATOCRIT % 27.3* PLATELETS 10*3/uL 293 BMP: Results from last 7 days Lab Units 04/14/2545604/13/2521304/12/25 0325 SODIUM mmol/L 140 139 139 POTASSIUM [...] Results from last 7 days Lab Units 04/14/2545604/13/2521304/12/25 0325 ALK PHOS U/L 47 52 49 [...] at home. I spoke with Breana from [facility]. Likely will need to have bedside spirometry [...] On: Kcal/kg Weight Used for Energy Requirements: Dudley Weight for Energy Calculation (kg): 70 kg Total Energy Requirements (kcals/day): 5764-3262 (25-30) Weight Used for Protein Requirements: Dudley Weight in Kg Used for Protein Requirements: 70 kg Estimated Total Protein (g/day): 56-84 (.8-1.2) Estimated Daily Total Fluid (ml/day): per MD Nutrition Related Findings: trace bilateral lower extremity edema per Pulmonology. abdomen soft, bm /. k+ 3.4, cl 93, c02 36, bun [...] Body Weight: (none on file to review) [place] Body Weight (lbs) (Calculated): 154 lbs [place] Body Weight (Kg) (Calculated): 70 kg % [place] Body Weight (Calculated): 136.1 % BMI (kg/m2) [...] Oral Nutrition Supplement Kristin Duffy RD Contact: *[phone] or via Secure Chat Images from the original note were not included. OCCUPATIONAL THERAPY [facility] Treatment Note Name/MRN: Mary Charles ([id number]) Date of : 1935 Age: 89 y.o. Room/Bed: B2-268/B2268 B Visit #: 3 out of 7 Discharge Recommendation: Nursing Home Facility Equipment Needed: No Prior Level of [...] Gongora OT at 04/14/2025 9:03 AM EDT [facility] Cardiology /Electrophysiology [...] results found for: TROPDELTSEC Recent Labs 04/11/25 05004/12/2532404/13/25 021 NA 139 [...] Medical History[1] LABS: CBC: Recent Labs 04/11/25 05004/12/2532404/13/2521304/13/25 042 WBC 13.8* 12.0* 12.7* -- RBC 3.48* 3.20* 3.36* -- HGB 7.9* 7.4* 7.8* 11.3* HCT 28.9* 26.8* 28.2* -- MCV 83.0 83.8 83.9 -- RDW 24.2* 24.3* 25.0* -- PLT 313 272 276 -- BMP: Recent Labs 04/11/25 05004/12/2532404/13/25213 NA 139 139 [...] ANAHY CHARLES Mobile Relation: Daughter Preferred language: Djiboutian Telephoto Engineer needed? No Albaro Hernández MD Division of [...] from the original note were not included. [facility], Pulmonary Medicine [address] [place] [address] Patient - Mary Charles, Age - 89 [...] original note were not included. OCCUPATIONAL THERAPY [facility] Treatment Note Name/MRN: Mary Charles ([id number]) Date of : 1935 Age: 89 y.o. [facility]: [facility] B Visit #: 2 out of 7 visits Discharge Recommendation: Nursing Home Facility Equipment Needed: No Prior Level of Function Prior Level of ADL Function: Required Assist (for showering and pt wipes himself down with wash cloth IND) Prior Level of Mobility: Independent; Device: Rollator Prior Level of Transfers: Independent Assessment Pt agreeable to therapy at first attempt ([id number]) but states that he first needs to [...] in accordance with facility standards. Fall Risk: [place]kins Fall Risk Score: 60 (High Risk) Precautions/Restrictions: [...] care of himself. -Consider medication for mood? -Coding Advisor support requested. -Monitor. Hx CKD III -CrCl [...] hospital setting and will send referral to broker agricultural producesearch marketing coordinator for palliative SNF referral. -Questions answered, [...] other systems were reviewed and are negative. [place] Symptom Assessment Score [place] Score Pain Score (if non-verbal, add .FLACC [...] LOURDES Ordaz CNP Hospitalist Progress Note 04/12/2025 [phone]: Please secure chat me for patient care issues. [phone]: Please secure chat [facility] night Hospitalist for any issues. Subjective: Admit [...] diet Regular; No Added Salt (3-4 gm) @[id number]@ 24HR INTAKE/OUTPUT: Intake/Output Summary (Last 24 hours) at 04/12/2025 1059 Last data filed at 04/12/2025 0917 Gross per 24 hour Intake 240 ml Output 650 ml Net -410 ml Past Medical History: Medical History[1] LABS: CBC: Recent Labs 04/10/2544204/11/25 05004/12/25 032 WBC 12.4* 13.8* 12.0* RBC 3.18* 3.48* [...] care input PT and OT assessments recommended nursing home facility -am labs, replace lytes prn -increase activity -DVT prophylaxis: [] Lovenox [] Heparin [x] SCDs [x] Encourage ambulation [] Already on Anticoagulation - GI prophylaxis : Anticipated Discharge - Date -April 14 or - Location -nursing home facility - Pending the following -clinical improvement, specialist clearance Total time spent (which include face to face and non face to face encounters) : 53 minutes Toxic drug monitoring/narrow therapeutic index drug monitoring : # Drug name : # Route administered : # Method of monitoring : Extended Emergency Contact Information Primary Emergency Contact: ANAHY CHARLES Mobile Relation: Daughter Preferred language: Djiboutian Telephoto Engineer needed? No Westley Martinez MD Division of Hospitalist Medicine [employer] [facility] PAGER: Ese chat [1] History reviewed. No [...] original note were not included. PHYSICAL THERAPY [facility] Treatment Note Name/MRN: Mary Charles ([id number]) Date of : 1935 Age: 89 y.o. Room/Bed: [facility]268/[facility] B Visit #: 3 out of 5 visits Discharge Recommendation: Nursing Home Facility Equipment Needed: No Assessment Pt making [...] Cabral PT at 04/12/2025 10:47 AM EDT [facility] [place] [facility] Cardiology /Electrophysiology Progress Note HPI / Interval History: Mary Charles has no prior cardiac history (has not seen a physician for many years) who presented to [facility] with worsening SOB, hypoxia and edema. [...] Benson CNP Date Of Service 04/12/2025 [1] [facility] Respiratory Care Department Progress Note Comment or [...] original note were not included. OCCUPATIONAL THERAPY [facility] Treatment Note Name/MRN: Mary Charles ([id number]) Date of : 1935 Age: 89 y.o. Room[facility]Bed: [facility] Visit #: 1 out of 7 Discharge Recommendation: Nursing Home Facility Equipment Needed: No Prior Level of [...] 04/11/2025 1:38 PM EDT Hospitalist Progress Note 04/11/20256993579-2385: Please secure chat me for patient care issues. [phone]: Please secure chat [facility] night Hospitalist for any issues. Subjective: Admit [...] diet Regular; No Added Salt (3-4 gm) @[id number]@ 24HR INTAKE/OUTPUT: Intake/Output Summary (Last 24 hours) [...] - Location -Home with home health versus nursing home facility - Pending the following -PT and [...] ANAHY CHARLES Mobile Relation: Daughter Preferred language: [place]ib[place]ian Telephoto Engineer needed? No Westley Martinez MD Division of Hospitalist Medicine [employer] [facility] PAGER: Cellvine chat [1] History reviewed. No pertinent past [...] ON 04/12/2025] torsemide, 40 mg, Oral, Daily [facility] [place] [facility] Cardiology /Electrophysiology Progress Note HPI / Interval History: Mary Charles has no prior cardiac history (has not seen a physician for many years) who presented to [facility] with worsening SOB, hypoxia and edema. [...] (A) 55 - 100 % Final Alejandro Queen APRN - EMS DRIVER Date Of Service 04/11/2025 [1] [facility] Respiratory Care Department Progress Note Comment or [...] original note were not included. PHYSICAL THERAPY [facility] Treatment Note Name/MRN: Mary Charles ([id number]) Date of : 1935 Age: 89 y.o. Room/Bed: 222-04/222-04 A Visit #: 2 out of 5 Discharge Recommendation: Nursing Home Facility Equipment Needed: No Assessment Pt making [...] original note were not included. OCCUPATIONAL THERAPY [facility] Initial Evaluation Name/MRN: Mary Charles ([id number]) Evaluation Date: 04/10/2025 Date of : 1935 Admission Date: 04/05/2025 3:55 PM Age: 89 y.o. Room/Bed: 222-04/222-04 A Discharge Recommendation: Nursing Home Facility Equipment Needed: No Assessment IMPRESSION: Pt [...] Needs Assist Receives Help From: Family Active Aerospace Manager: No Prior Level of Function Prior Level [...] Therapy Time Individual Co-Treatment Co-Evaluation Time In 54 Time Out 1019 Minutes 25 Timed Code Treatment Minutes: 8 Minutes (Ther Act) Jose Guadalupe Gongora OT Patient's Occupational Therapy Plan of Care supervision is transferred to a [facility] Therapy Services Occupational Therapist. Goals and/or [...] [2] History reviewed. No pertinent surgical history. [facility] Cardiology /Electrophysiology Progress Note HPI / Interval History: Mary Charles has no prior cardiac history (has not seen a physician for many years) who presented to [facility] with worsening SOB, hypoxia and edema. [...] No results found for: TROPDELTSEC Recent Labs 04/08/251604/09/25 0409 04/10/25 0443 NA 142 142 142 [...] remote tobacco abuse who was admitted to [facility] 04/05/25 with shortness of breath and [...] Normal [] Scar/Lesion/Mass Inspection of teeth/lips/gums: Dentition: [x][place] Teeth []Dentures Lips/Gums [x]Intact []Lesion Present Oropharynx exam: Mucosa [x]Startup []Moist []Dry Neck: External Appearance: Overall Appearance:[x]Normal [...] within last 24 hours- BMP: Recent Labs 04/08/251604/09/25 0409 04/10/25 0443 NA 142 142 142 K 3.4* 3.5 3.2* CL 99 98 95* CO2 33* 34* 35* BUN 26* 25* 32* CREATININE 1.78* 1.53* 1.65* CALCIUM 7.9* 8.1* 8.0* MG 1.6 1.7 1.7 PHOS -- 3.5 2.6 LFTS: Recent Labs 04/08/251604/09/25 0409 04/09/25 1019 04/10/25 0443 AST 21 18 -- 16 ALT <6 <6 -- <6 PROT 5.8* 5.7* 5.9* 5.5* BILITOT 0.6 0.7 -- 0.6 ALKPHOS 57 56 -- 50 Glucose: Recent Labs 04/08/251604/08/25163004/09/2540804/10/25442 GLUCOSE 99 -- 90 98 POCGLU -- [...] ABGs: Recent Labs 04/08/25165304/08/252052 PHART 7.296* 7.332* HET1YED 80.1* 75.1* PO2ART 92.0 104.0 STM1GPT 38.2* 38.9* U7BNJHMD 96.1* 97.0 Lactic Acid: No lab exists [...] can use the urinal, no indication for BANKRUPTCY LEGAL ASSISTANT at this time (would be a poor [...] Lewis MD Pulmonary & Critical Care Medicine [facility] Pager #[phone] [1] atorvastatin, 20 mg, Oral, Nightly carvedilol, 3.125 mg, Oral, BID WC furosemide, 40 mg, IntraVENous, BID hydrALAZINE, 25 mg, Oral, TID mupirocin, 1 Application, Nasal, BID pantoprazole, 40 mg, Oral, qAM AC polyethylene glycol (PEG) 3350, 17 g, Oral, Daily senna-docusate sodium, 2 tablet, Oral, BID [Held by provider] torsemide, 20 mg, Oral, Daily [2] [facility] Cardiology /Electrophysiology Progress Note HPI / Interval History: Mary Charles has no prior cardiac history (has not seen a physician for many years) who presented to [facility] with worsening SOB, hypoxia and edema. [...] Does appear tired. Family at bedside (brother, deipjt-sa-ylw, daughter). No significant complaints today. Assessment/Plan HF [...] results found for: TROPDELTSEC Recent Labs 04/07/25 03104/08/257 04/09/25 0409 NA 143 142 142 K 3.6 3.4* 3.5 CL 98 99 98 CO2 31 33* 34* BUN 26* 26* 25* CREATININE 1.63* 1.78* 1.53* Recent Labs 04/07/25 0314 04/08/25 0017 04/08/25 1654 04/08/25 2053 04/09/25 [...] original note were not included. PHYSICAL THERAPY [facility] Treatment Note Name/MRN: Mary Charles ([id number]) Date of : 1935 Age: 89 y.o. Room/Bed: 222-04/222-04 A Visit #: 1 out of 5 Discharge Recommendation: Nursing Home Facility Equipment Needed: No Assessment Pt demos [...] x1) Lucrecia Cabral PT Spiritual Care Note [facility] Palliative Care Patient Name:Mary Charles Chief [...] of grief. He spoke about moving from [place] to [place] as a young man. We did some life review. No follow up. Is there spiritual distress? YES Comment: Grief Interventions: spiritual support provided, emotional support provided, empathetic listening, and validated feelings. Care Plan: No care plan. Follow Up: No follow up. Debriefed: with cavity pump operator team. Carmelita Chairez 04/09/25 Images from the [...] care of himself. -Consider medication for mood? -Coding Advisor support requested. -Monitor. Hx CKD III -CrCl [...] other systems were reviewed and are negative. [place] Symptom Assessment Score [place] Score Pain Score (if non-verbal, add .FLACC [...] original note were not included. OCCUPATIONAL THERAPY [facility] ED's Name/MRN: Mary Charles ([id number]) Date: 04/09/2025 OT order received, chart review [...] remote tobacco abuse who was admitted to [facility] 04/05/25 with shortness of breath and [...] PULSE OXIMETRY: SpO2: 99 % I/O: 04/08 700 - 04/09 0659 In: 636 [P.O.:100; I.V.:536] [...] (Active) Date First Assessed/Time First Assessed: 04/08/25 190 Present on Original Admission: Yes Primary Wound Type: Skin Tear Location: Forearm Wound Location Orientation: Left;Proximal;Posterior Constitutional: General Appearance: []WDWN [x]Obese []Cachectic []Thin []ill Eyes: Inspection of Pupils/Irises: Pupils round and react: [x]Yes []No Sclera: []Icteric [x]Non-Icteric Inspection of Conjunctiva/Lids Conjunctiva: []Injected [x]Non-Injected Lids: [x]Intact []Lesion Present ENT/Mouth:: External Inspection of ears/nose [x] Normal [] Scar/Lesion/Mass Inspection of teeth/lips/gums: Dentition: [x][place] Teeth []Dentures Lips/Gums [x]Intact []Lesion Present Oropharynx exam: Mucosa [x]Startup []Moist []Dry Neck: External Appearance: Overall Appearance:[x]Normal [...] 57 57 56 Glucose: Recent Labs 04/07/2531304/08/251604/08/25 16304/09/25 0409 GLUCOSE 88 99 -- 90 POCGLU [...] ABGs: Recent Labs 04/08/25165304/08/252052 PHART 7.296* 7.332* IJB4QVJ 80.1* 75.1* PO2ART 92.0 104.0 BRT7WHX 38.2* 38.9* A4HKMZFD 96.1* 97.0 Lactic Acid: No lab exists [...] urology evaluation, strict I/O's, no indication for BANKRUPTCY LEGAL ASSISTANT at this time (would be a poor [...] Lewis MD Pulmonary & Critical Care Medicine [facility] Pager #[phone] [1] atorvastatin, 20 mg, Oral, Nightly carvedilol, [...] critical care time excluding procedures D/w Yamilka, BANKRUPTCY LEGAL ASSISTANT, Rosangela RN and family at bedside. Images from the original note were not included. OCCUPATIONAL THERAPY [facility] Name/MRN: Mary Charles ([id number]) Date: 04/08/2025 Therapy eval and treat orders [...] CBC: Recent Labs 04/06/25 0334 04/07/254 04/08/25 0017 WBC 10.3 11.5* 13.0* HGB [...] up with [facility] Hospitalist Progress Note 04/08/20256998561-6657: Please secure chat me for patient care issues. [phone]: Please secure chat [facility] Hospitalist for any issues. Subjective: Admit [...] dose of lorazepam.... Adult diet Clear liquid @RDKH4OHQZCP@ 24HR INTAKE/OUTPUT: Intake/Output Summary (Last 24 hours) [...] Date -April 11 or - Location -possible nursing home facility - Pending the following -clinical improvement, [...] ANAHY CHARLES Mobile Relation: Daughter Preferred language: [place]ian Telephoto Engineer needed? No Westley Martinez MD Division of Hospitalist Medicine [employer] care [place] PAGER: Epic chat [1] History reviewed. No pertinent past medical history. [2] [3] atorvastatin, 20 mg, Oral, Nightly carvedilol, 3.125 mg, Oral, BID WC [Held by provider] furosemide, 40 mg, IntraVENous, BID hydrALAZINE, 25 mg, Oral, TID iron sucrose, 200 mg, IntraVENous, q24h pantoprazole, 40 mg, Oral, qAM AC [facility] Cardiology /Electrophysiology Progress Note HPI / Interval History: Mary Charles has no prior cardiac history (has not seen a physician for many years) who presented to [facility] with worsening SOB, hypoxia and edema. [...] 3. Dysphagia - resolved Spiritual Care Note [facility] Palliative Care Patient Name:Mary Charles Chief Complaint: Chief Complaint Patient presents with Leg Swelling Shortness of Breath Pt arrived to triage for shortness of breath and swelling legs. Pt endorses increased work of breath, weakness, confusion and no appetite. Reason for visit: Coding Advisor Consult Services Provided To:patient and family Background and visit note: Patient was cavity pump operator consult. Introduced myself and pastoral care to [...] and when patient is able. Debriefed: with cavity pump operator team. Carmelita Chairez 04/07/25 Images from the original note were not included. PHYSICAL THERAPY [facility] Initial Evaluation Name/MRN: Mary Charles ([id number]) Evaluation Date: 04/07/2025 Date of : 1935 Admission Date: 04/05/2025 3:55 PM Age: 89 y.o. Room/Bed: B2254/[facility]254 A Discharge Recommendation: Nursing Home Facility Equipment Needed: No Assessment IMPRESSION: Pt [...] Needs Assist Receives Help From: Family Active Aerospace Manager: No Prior Level of Function Prior Level [...] Raw Score (No Stairs) : 11 [facility] Score: Static standing (1 or more [...] of Care supervision is transferred to a [facility] Therapy Services Physical Therapist. Goals and/or treatment plan was established in collaboration with patient/family/other representatives. [1] History reviewed. No pertinent past medical history. [2] History reviewed. No pertinent surgical history. Cosigned by Lucrecia Cabral PT at 04/07/2025 4:00 PM EDT Hospitalist Progress Note 04/07/20256998978-9541: Please secure chat me for patient care issues. [phone]: Please secure chat [facility] night Hospitalist for any issues. Subjective: Admit [...] diet Regular; No Added Salt (3-4 gm) @[id number]@ 24HR INTAKE/OUTPUT: Intake/Output Summary (Last 24 hours) at 04/07/2025 1133 Last data filed at 04/06/2025 2241 Gross per 24 hour Intake 210 ml Output 1720 ml Net -1510 ml Past Medical History: Medical History[1] LABS: CBC: Recent Labs 04/05/25161604/06/25 0334 04/07/25 0314 WBC 10.0 10.3 11.5* RBC 2.83* 3.46* 3.40* HGB 5.5* 7.6* 7.4* HCT 20.7* 27.2* 27.2* MCV 73.1* 78.6 80.0 RDW 19.9* 20.5* 20.5* PLT 358 344 346 BMP: Recent Labs 04/05/25161604/06/25 0334 04/07/25 0314 NA 140 143 143 K 4.5 4.2 3.6 CL 105 104 98 CO2 27 26 31 BUN 24* 24* 26* CREATININE 1.46* 1.44* 1.63* GLUCOSE 108 98 88 CALCIUM 8.4* 8.2* 7.9* ANIONGAP 8 13 14* LIVER PROFILE: Recent Labs 04/05/257 04/06/25 0334 04/07/25 0314 AST 22 25 [...] Date -April 11 or - Location -possible nursing home facility - Pending the following -clinical improvement, [...] ANAHY CHARLES Mobile Relation: Daughter Preferred language: [place]ib[place]ian Telephoto Engineer needed? No Westley Martinez MD Division of Hospitalist Medicine Acute care [facility] PAGER: Epic chat [1] History reviewed. No pertinent past medical history. [2] [3] atorvastatin, 20 mg, Oral, Nightly carvedilol, 3.125 mg, Oral, BID WC furosemide, 40 mg, IntraVENous, BID hydrALAZINE, 25 mg, Oral, TID iron sucrose, 200 mg, IntraVENous, q24h pantoprazole, 40 mg, Oral, qAM AC [facility] [place] [facility] Cardiology /Electrophysiology Progress Note HPI / Interval History: Mary Charles has no prior cardiac history (has not seen a physician for many years) who presented to [facility] with worsening SOB, hypoxia and edema. [...] for: TROPDELTSEC Recent Labs 04/05/25 16104/06/25 0334 04/07/25 0314 NA 140 143 143 K 4.5 4.2 3.6 CL 105 104 98 CO2 27 26 31 BUN 24* 24* 26* CREATININE 1.46* 1.44* 1.63* Recent Labs 04/05/25 16104/06/25 0334 04/07/254 WBC 10.0 10.3 11.5* HGB 5.5* 7.6* [...] assess Fluid Accumulation: Moderate to Severe Extremities Service Plumber Strength: Not Performed Nutrition Assessment: 89 y.o. [...] anemia and frailty. Conservative, medical management." nursing education consultant in room. Pt sleeping /snoring -name called numerous times pt did not wake -left undisturbed at this time. Estimated Daily Nutrient Needs: Energy Requirements Based On: Kcal/kg Weight Used for Energy Requirements: [place] Weight for Energy Calculation (kg): 70 kg Total Energy Requirements (kcals/day): 2699-4216 (25-30) Weight Used for Protein Requirements: [place] Weight in Kg Used for Protein Requirements: [...] lb) Usual Body Weight: (unable to obtain) [place] Body Weight (lbs) (Calculated): 154 lbs [place] Body Weight (Kg) (Calculated): 70 kg % [place] Body Weight (Calculated): 129.9 % BMI (kg/m2) [...] soon to determine Kristin Duffy RD Contact: *[phone] or via Secure Chat [1] atorvastatin, 20 mg, Oral, Nightly carvedilol, 3.125 mg, Oral, BID WC furosemide, 40 mg, IntraVENous, BID hydrALAZINE, 25 mg, Oral, TID iron sucrose, 200 mg, IntraVENous, q24h pantoprazole, 40 mg, Oral, qAM AC [2] Hospitalist Progress Note 04/06/2025 [phone]: Please secure chat me for patient care issues. [phone]: Please secure chat [facility] Hospitalist for any issues. Subjective: Admit [...] ferritin, IV Venofer added Adult diet Regular @[id number]@ 24HR INTAKE/OUTPUT: Intake/Output Summary (Last 24 hours) [...] ANAHY CHARLES Mobile Relation: Daughter Preferred language: [place]ian Telephoto Engineer needed? No Westley Martinez MD Division of Hospitalist Medicine [facility] PAGER: Cellvine chat [1] History reviewed. No pertinent past medical history. [2] [3] atorvastatin, 20 mg, Oral, Nightly carvedilol, 3.125 mg, Oral, BID WC furosemide, 40 mg, IntraVENous, BID hydrALAZINE, 25 mg, Oral, TID iron sucrose, 200 mg, IntraVENous, q24h pantoprazole, 40 mg, Oral, qAM AC documented in this encounter [facility] 04-14-2025 Note IR US Thoracentesis [...] days, worsening pleural effusion. Spoke with pulmonology FRAMING SPECIALIST, Yesi today. Consult placed. Will see tomorrow s/p thoracentesis. Signed, Bela Agustin APRN, CNP, [facility] Palliative [facility]/Hospice PGR [phone] Cosigned by Diana Marsh MD at 04/14/2025 1:38 PM EDT Images from the original note were not included. [facility], Pulmonary Medicine [address] [place] [address] Patient - [facility] [id number] - 1935 Date of Admission - 04/05/2025 3:55 PM Date of evaluation - 04/12/2025 Room - [facility] Hospital Day - Consulting - Westley Martinez MD Primary Care [...] ml Output 650 ml Net -410 ml @[id number]@ Physical Exam Physical Exam Vitals and nursing [...] Results from last 7 days Lab Units 04/08/253 04/08/25 1654 PH ART 7.332* 7.296* PCO2 [...] Pulmonary function tests (PFT's) No PFT's in [facility] Sleep History No sleep study available in [facility] Radiology CXR 04/11/25: IMPRESSION: Cardiomegaly with [...] deltoids) Fluid Accumulation: Moderate to Severe Extremities Service Plumber Strength: Normal hosiery operator strength Nutrition Assessment: 89 year old man who remains admitted to [facility] with shortness of breath and hypoxia. [...] On: Kcal/kg Weight Used for Energy Requirements: [place] Weight for Energy Calculation (kg): 70 kg Total Energy Requirements (kcals/day): 3170-2538 (25-30) Weight Used for Protein Requirements: [place] Weight in Kg Used for Protein Requirements: [...] Body Weight: (none on file to review) [place] Body Weight (lbs) (Calculated): 154 lbs [place] Body Weight (Kg) (Calculated): 70 kg % [place] Body Weight (Calculated): 136.1 % BMI (kg/m2) [...] to determine Darleen Stubbs RDN, LDN, Contact: *[phone] Associated Order(s): INPATIENT CONSULT TO CRITICAL CARE - MEDICAL TEAM Internal Medicine: MICU Initial Consult Name: Mary Charles : 1935(89 y.o.) Date: 04/08/25 Attending: Precious Lewis MD Subjective: Chief Complaint: shortness of breath HPI: Patient is a pleasant 89 year-old male with a history of chronic HFrEF and prior remote tobacco abuse who was admitted to [facility] 04/05/25 with shortness of breath and [...] Normal [] Scar/Lesion/Mass Inspection of teeth/lips/gums Dentition: [x][place] Teeth []Dentures Lips/Gums: [x]Intact []Lesion Present Mucosa: [x]Startup []Moist []Dry Neck: External Appearance Overall Appearance: [...] ABGs: Recent Labs 04/08/25 1654 PHART 7.296* [id number] 80.1* PO2ART 92.0 PFW5VYD 38.2* [id number] Nasal Cannula (LPM) Lactic Acid: No results [...] Place garcía, strict I/O's, no indication for BANKRUPTCY LEGAL ASSISTANT at this time (would be a poor [...] care of himself. -Consider medication for mood? -Coding Advisor support requested. -Monitor. Hx CKD III -CrCl [...] in the note above. Bela Agustin, PROGRAM SCHEDULE CLERK - EMS DRIVER Palliative Care Assessments: Goals of care: Continue [...] fully addressed Living status: alone Work history: status: No Cheondoism: No caodaism on file ROS: See palliative care ROS/ESAS below; All other systems were reviewed and are negative. [place] Symptom Assessment Score [place] Score Pain Score (if non-verbal, add .FLACC [...] 2024, has a son who lives in [place] and daughter that lives close by Retired from working at [employer] for 43 years No tobacco use Denies [...] Allergies Associated Order(s): IP CONSULT TO CARDIOLOGY [facility] [place] [facility] Consult Note Reason for Consult/Chief Complaint: [...] daily Consider palliative approach Cari Scherer MD, [facility] DATE of SERVICE: 04/06/2025 [1] History reviewed. No pertinent past medical history. [2] History reviewed. No pertinent surgical history. [3] No family history on file. [4] [5] furosemide, 40 mg, IntraVENous, BID iron sucrose, 200 mg, IntraVENous, q24h pantoprazole, 40 mg, Oral, qAM AC documented in this encounter [facility] 04-13-2025 Hospital Discharg e instructions LOURDES Cervantes CNP - 04/13/2025 12:17 PM EDT Please call [employer] at [phone] to arrange for home NIV once stable [...] ANAHY CHARLES Mobile Relation: Daughter Preferred language: [place]ib[place]ian Telephoto Engineer needed? No Past Surgical History: History reviewed. 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 or a unit of a [facility] that is not operated by or licensed by [facility] under section 5119.14 or 5160-3-15.1 5 The individual requires the level of services provided by a nursing facility for the condition for which he or she was treated in the hospital and, Physician Certification: I certify the above information and transfer of Mary Charles is necessary for the continuing treatment of the diagnosis listed and that he requires nursing home facility for less than 30 days. Update Admission H&P: No change in H&P PHYSICIAN SIGNATURE: documented in this encounter [facility] 04-09-2025 Note [facility] [facility] 04-09-2025 Procedure note Associated Ord er(s): [...] this procedure note documented in this encounter [facility] 04-09-2025 Note [facility] 04-05-2025 Note [facility] 04-05-2025 History and physical note Attending [...] No Known Allergies documented in this encounter [facility] Health Evaluation note Diagnosis Acute congestive heart failure, unspecified heart failure type (HCC)- Primary Acute congestive heart failure, unspecified heart failure type (HCC) Anemia, unspecified type Shortness of breath Hypoxia Hypoxemia CHF (congestive heart failure), NYHA class I, acute on chronic, combined (HCC) documented in this encounter [facility] HealthEvaluation note* Diagnosis Acute congestive heart failure, unspecified heart failure type (HCC)- Primary documented in this encounter [facility]Evaluation note* Diagnosis Chronic systolic heart failure (HCC)- Primary Chronic systolic heart failure Coronary artery disease involving mary[place] igloo coronary artery of mary[place] 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 angina pectoris Pleural effusion Unspecified pleural effusion Acute kidney injury superimposed on chronic kidney disease (HCC) (HCC) 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 chronic kidney disease (HCC) PAC (premature atrial contraction) Supraventricular premature beats Abnormal CAT scan Other nonspecific (abnormal) findings on radiological and other examinations of body structure [facility] Diagnosis Chronic systolic heart failure (HCC)- Primary Chronic systolic heart failure Coronary artery disease involving [place] coronary artery of mary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 angina pectoris Pleural effusion Unspecified [...] Debility Unspecified debility documented in this encounter [facility]Evaluation note* Diagnosis Chronic systolic heart failure (HCC)- Primary Chronic systolic heart failure Coronary artery disease involving m[place] coronary artery of mary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 angina pectoris Pleural effusion Unspecified pleural effusion Acute kidney injury superimposed on chronic kidney disease 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 chronic kidney disease (CMS/HCC) PAC (premature atrial contraction) Supraventricular premature beats Abnormal CAT scan Other nonspecific (abnormal) findings on radiological and other examinations of body structure Chronic systolic heart failure (HCC)- Primary Chronic systolic heart failure [facility] Diagnosis Chronic systolic heart failure (HCC)- Primary Chronic systolic heart failure Coronary artery disease involving m[place] coronary artery of mary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 angina pectoris Pleural effusion Unspecified pleural effusion Acute kidney injury superimposed on chronic kidney disease 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 chronic kidney disease (CMS/HCC) PAC (premature atrial contraction) Supraventricular premature beats Abnormal CAT scan Other nonspecific (abnormal) findings on radiological and other examinations of body structure Anemia due to chronic kidney disease, unspecified CKD stage- Primary [facility] Diagnosis Chronic systolic heart failure (HCC)- Primary Chronic systolic heart failure Coronary artery disease involving mary[place] coronary artery of mary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 angina pectoris Pleural effusion Unspecified pleural effusion Acute kidney injury superimposed on chronic kidney disease 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 chronic kidney disease (CMS/HCC) PAC (premature atrial contraction) Supraventricular premature beats Abnormal CAT scan Other nonspecific (abnormal) findings on radiological and other examinations of body structure Symptomatic anemia- Primary documented in this encounter [facility] Chief Complaint and Reason for [...] heart failure type (HCC) Procedures .. Clara, Albaro, MD [address] [place] [address] Phone: tel: fax: [facility] Card[facility] Unit PCU [address] [place] [address] Phone: tel: Referral ID Status Reason Start Date Expiration Date Visits Re quested Visits Authorized [id number] 1 Reason Comments Hospital Follow-up Congestive Heart Failure Reason Comments Follow-up 6 Week Reason Comments Other Patient here followi ng bloodwork showing low hemoglobin Reason Onset Date Comments Release of Information 06/24/2025 BMP, ferny ls, and medication notes Reason Comments Other Low hemoglobin Scheduled Active and Recently Administ ered Medications (unrecognized section and content) Medication Order 04/15/2025 04/16/2025 04/17/2025 atorvastatin (Lipitor) tablet 20 mg 20 mg, Oral, Nightly, First dose on Sat04/06/25 at 2100 2023 (Given - Provider: Jose Tinoco, LUCIA) 2105 (Given - Provider: Lynne Calzada RN) [...] since 04/17/2025 at 0739 until manually unheld 911 (Not Given - Provider: Kourtney Jordan RN - Reason: Order parameters not met)1533 (Not Given - Provider: Kourtney Jordan RN - Reason: Order parameters not met)2000 (Not Given - Provider: Jose Tinoco RN - Reason: Order parameters not met - Comment: BP 95/58) 0836 (Given - Provider: Danielle Fu, LUCIA)1402 (Not Given - Provider: Danielle Fu RN - Reason: Order parameters not met)2105 (Not Given - Provider: Lynne Calzada RN - Reason: Other - Comment: low BP) 0739 (Held by provider - Provider: Albaor Hernández MD - Reason: Other)0900 (Dose Auto [...] Reason: Patient/family refused)1402 (Given - Provider: Danielle Fu, LUCIA) 0854 (Given - Provider: China Vogel RN)1500 (Canceled Entry - Provider: Automatic Discharge Provider - Comment: Automatically canceled at discontinue of medication order) spironolactone (Aldactone) tablet 25 mg 25 mg, Oral, Daily, First dose on Sat04/13/25 at 1630 0914 (Given - Provider: Kourtney Jordan RN) 0836 (Given - Provider: Danielle Skonberg, RN) 0854 (Given - Provider: China Vogel [...] sedation for opioid reversal - MUST notify optimization engineer provider immediately after first dose, may give [...] has been cleared of remaining blood product. PRN Medication Order 07/17/2025 07/18/2025 07/19/2025 sodium chloride 0.9 % infusion 250 mL/hr, IntraVENous, Administer over 10 Minutes, As needed, For use in priming line prior to transfusion (prime via gravity) and flush line post transfusion, Starting on 07/19/25 at 1214, For 1 dose, For use in priming line prior to transfusion (prime via gravity) and flush line post transfusion ONLY. Discontinue once line has been cleared of remaining blood product. Care Teams (unrecognized sec tion and content) Clinical Psychologist Licensed Relationship Specialty Start Date End Date Aliya Tadeo RN [employer] 04/09/25 Clinical Psychologist Licensed Relationship Specialty Start Date End Date Aliya Tadeo RN [employer] 04/09/25 Clinical Psychologist Licensed Relationship Specialty Start Date End Date Aliya Tadeo RN Registered Nurse [employer] 04/09/25 Clinical Psychologist Licensed Relationship Specialty Start Date End Date Aliya Tadeo RN Registered Nurse [employer] 04/09/25 Clinical Psychologist Licensed Relationship Specialty Start Date End Date Aliya Tadeo RN Registered Nurse [employer] 04/09/25 Clinical Psychologist Licensed Relationship Specialty Start Date End Date Aliya Tadeo RN Registered Nurse [employer] 04/09/25 Clinical Psychologist Licensed Relationship Specialty Start Date End Date Aliya Tadeo RN Registered Nurse [employer] 04/09/25 Clinical Psychologist Licensed Relationship Specialty Start Date End Date Ravi Kirk DO [address] [place] [id number] PCP - General Internal Medicine 07/19/25 (unrecognized sect ion and content) No Status Records FoundNo Status Records Found INFORMATION SOURCE (unrecogn ized section and content) DATE CREATED AUTHOR 07/19/2025 [facility] DATE CREATED AUTHOR BRENDENS KIYA TROTTER 07/20/2025 [facility] FOR RECORDS PERTAINING TO PATIENTS WHO [...] BE BASED ON THE PRIMARY CLINICAL RECORDS. [facility] [employer] [facility]. provides no warranty or guarantee of the accuracy or completeness of information in this document.
[2025-07-26 08:55] LABS: Hematocrit 25.4 % (40-54); Hemoglobin 7.9 g/dL (13.0-16.5); Mean Corp Hgb Conc 31.1 g/dL (32-36); Mean Corpuscular Volume 92.7 fL (80-94); Mean Platelet Vol. 8.6 fl (6.2-12.0); Platelet Count 515 K/mm3 (150-450); RBC Distribution Width CV 13.3 % (11.6-14.6); RBC Distribution Width SD 45.0 fl (35.1-43.9); Red Blood Count 2.74 M/mm3 (4.6-6.2); White Blood Count 12.8 K/mm3 (4.4-11.0)
== END ==
LOC: OLS.ACH2 04:00
PROVIDERS: PCP Internal Medicine; Referring Provider Internal Medicine; Visit Provider Internal Medicine
DX: D63.1 Anemia in chronic kidney disease (principal); N18.9 Chronic kidney disease, unspecified
CPT/HCPCS: 36415; 85027

== ENCOUNTER → 2025-08-02 | Outpatient (REF) | payer MEDICARE, SELFPAY ==
--- OUTSIDE RECORDS SUMMARY | 2025-08-02 04:13 | XMS RPT_ITS | CCD ---
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 Name Role Phone Aliya Tadeo RN Unavailable Unavailable Deperro OLS, Ravi Attending Unavailable Ghourbrial, Negro Primary [facility] Unavailable Ghourbrial, Negro Primary [facility] Unavailable Deperro OLS, Ravi Attending Unavailable Deperro OLS, Ravi Attending Unavailable Ghourbrial, Negro Primary [facility] Unavailable Deperro OLS, Ravi Attending Unavailable Ghourbrial, [facility] Primary Care Unavailable Deperro OLS, Ravi Attending Unavailable Ghourbrial, [facility] Primary Care Unavailable Deperro OLS, Ravi Attending [...] Unavailable Deperro DO, Ravi Primary Care Provider Unavailable Unavailable Unavailable Medications Current Medications Medication [...] 04-17-2025 docusate sodium 50 mg / sennosides, [facility] 8.6 mg oral tablet (15 sources) Start: [...] 3.125 mg oral tablet (2 sources) alpha-Adrenergic Daán, beta-Adrenergic Adán Start: 04-06-2025 End: 04-10-2025 2 [...] Start: 04-05-2025 End: 04-06-2025 polyethylene glycol 3350 50383 mg powder for oral solution (4 sources) [...] Coronary arteriosclerosis; 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 Comment on above: Performed By: #### L [id number] ####Commissioner Conservation Of Resources: UNA ARCE ([id number])[facility] ([facility])[address] RH TYPE IN BLOOD Negative Normal [facility] Comment on above: Performed By: #### L [id number] ####Commissioner Conservation Of Resources: UNA ARCE ([id number])[facility] ([facility])[address] [place], [place] [id number] [place] [address] Basic Metabolic Profile (BMP )on 07-19-2025 BUN/CRE 17.2 RATIO Normal 10-20 [facility] Comment on above: Order Comment: 542.1 Performed By: #### L 500.2500, L100.0500 #### [facility] [address] [place], [address] Calcium [Mass/Vol] 8.6 mg/dL Normal 7.6-11.0 [facility] Comment on above: Order Comment: 542.1 Performed By: #### L 500.2500, L100.0500 #### [facility] [address] [place], [address] Chloride [Moles/Vol] 99 mmol/L Normal 98-108 [facility] Comment on above: Order Comment: 542.1 Performed By: #### L 500.2500, L100.0500 #### [facility] [address] [place], [address] CO2 [Moles/Vol] 28.6 mmol/L Normal 21.0-32.0 [facility] Comment on above: Order Comment: 542.1 Performed By: #### L 500.2500, L100.0500 #### [facility] [address] [place], [address] Creatinine [Mass/Vol] 1.77 mg/dL High 0.70-1.20 [facility] Comment on above: Order Comment: 542.1 Performed By: #### L 500.2500, L100.0500 #### [facility] [address] [place], [address] GAP 9 Normal 5-15 [facility] Comment on above: Order Comment: 542.1 Performed By: #### L 500.2500, L100.0500 #### [facility] [address] [place], [address] GFR/1.73 sq M.predicted among non-blacks MDRD (S/P/Bld) [Vol rate/Area] 36 mL/min/{1.73_m2} Low >60 [facility] Comment on above: Order Comment: 542.1 Result Comment: mL/m in/1.73m2 CKD-EPI Creatinine Equation (2020) Performed By: #### L 500.2500, L100.0500 #### [facility] [address] [place], [address] Glucose [Mass/Vol] 93 mg/dL Normal 70-99 [facility] Comment on above: Order Comment: 542.1 Performed By: #### L 500.2500, L100.0500 #### [facility] [address] [place], [address] Potassium [Moles/Vol] 3.7 mmol/L Normal 3.3-5.1 [facility] Comment on above: Order Comment: 542.1 Performed By: #### L 500.2500, L100.0500 #### [facility] [address] [place], [address] Sodium [Moles/Vol] 137 mmol/L Normal 133-145 [facility] Comment on above: Order Comment: 542.1 Performed By: #### L 500.2500, L100.0500 #### [facility] [address] [place], [address] Urea nitrogen [Mass/Vol] 30 mg/dL High 4-19 [facility] Comment on above: Order Comment: 542.1 Performed By: #### L 500.2500, L100.0500 #### [facility] [address] [place], [address] Blood type and Crossmatch keagan victor (Bld)on 07-19-2025 ABO group Froilan (Bld) A [facility] Blood group antibody screen GEL Ql Negative [facility] D Ag Ql (RBC) Negative [facility] CBC W Auto Differential pane l (Bld)Ordered By: Haroldo Alvarez on 07-19-2025 Erythrocyte distribution width (RBC) [Ratio] 14.0 % 11.5 - 15.0 % [facility] Hematocrit (Bld) [Volume fraction] 24.6 % Low 40.0 - 52.0 % [facility] Hemoglobin (Bld) [Mass/Vol] 7.8 g/dL Low 13.0 - 18.0 g/dL [facility] Interpretation and review of laboratory results Abnormal [facility] MCH (RBC) [Entitic mass] 29.2 pg 26. 0 - 34.0 pg [facility] MCHC (RBC) [Mass/Vol] 31.7 % 30.5 - 36.0 % [facility] MCV (RBC) [Entitic vol] 92.1 fL 77.0 - 99.0 fL [facility] Platelet mean volume (Bld) [Entitic vol] 8.3 fL Low 9.0 - 12.7 fL [facility] Platelets (Bld) [#/Vol] 581 10*3/uL High 140 - 440 10*3/uL [facility] RBC (Bld) [#/Vol] 2.67 10*6/uL Low 4.40 - 5.9 0 10*6/uL [facility] WBC (Bld) [#/Vol] 15.6 10*3/uL High 3.6 - 10.7 10*3/uL [facility] CBC WITH AUTO DIFFERENTIALon 07-19-2025 Erythrocyte distribution width (RBC) [Ratio] 14.0 % Normal 11.5-15.0 [facility] Comment on above: Performed By: #### L [id number], [id number] ####Commissioner Conservation Of Resources: UNA ARCE ([id number])[facility] ([address] Hematocrit (Bld) [Volume fraction] 24.6 % Low 40.0-52.0 [facility] Comment on above: Performed By: #### L [id number], [id number] ####Commissioner Conservation Of Resources: UNA ARCE ([id number])[facility] ([facility])[address] Hemoglobin (Bld) [Mass/Vol] 7.8 g/dL Low 13.0-18.0 [facility] Comment on above: Performed By: #### L [id number], [id number] ####Commissioner Conservation Of Resources: UNA YAZMIN ([id number])[facility] ([facility])[address] MCH (RBC) [Entitic mass] 29.2 pg Normal 26.0-34.0 [facility] Comment on above: Performed By: #### L [id number], [id number] ####Commissioner Conservation Of Resources: UNA BERMUDEZPEDRO ([id number])[facility] ([facility])[address] MCHC 31.7 % Normal 30.5-36.0 [facility] Comment on above: Performed By: #### L [id number], [id number] ####Commissioner Conservation Of Resources: UNA ARCE ([id number])[facility] ([facility])[address] MCV (RBC) [Entitic vol] 92.1 fL Normal 77.0-99.0 S [facility] Comment on above: Performed By: #### L [id number], [id number] ####Commissioner Conservation Of Resources: UNA ARCE ([id number])[facility] [place] ([facility])[address] Platelet mean volume (Bld) [Entitic vol] 8.3 fL Low 9.0-12.7 [facility] Comment on above: Performed By: #### L [id number], [id number] ####Commissioner Conservation Of Resources: UNA ARCE ([id number])[facility] ([facility])[address] Platelets (Bld) [#/Vol] 581 10*3/uL High 140-440 [facility] Comment on above: Performed By: #### L [id number], [id number] ####Commissioner Conservation Of Resources: UNAANJEL ARCE ([id number])[facility] ([facility])[address] [place] [address] RBC (Bld) [#/Vol] 2.67 10*6/uL Low 4.40-5.90 [facility] Comment on above: Performed By: #### L [id number], [id number] ####Commissioner Conservation Of Resources: UNAANJEL ARCE ([id number])[facility] [place] ([facility])[address] [place] [address] WBC (Bld) [#/Vol] 15.6 10*3/uL High 3.6-10.7 [facility] Comment on above: Performed By: #### L [id number], [id number] ####Commissioner Conservation Of Resources: UNAANJEL ARCE ([id number])[facility] (SB[facility])[address] [place] [address] CBC-Complete Blood Cnt No [facility] 07-19-2025 Erythrocyte distribution width (RBC) [Ratio] 14.1 % Normal 11.6-14.6 [facility] Comment on above: Order Comment: 542.1 Performed By: #### L 500.2500, L100.0500 #### [facility] [address] [place], [address] Hematocrit (Bld) [Volume fraction] 21.2 % Low 40-54 [facility] Comment on above: Order Comment: 542.1 Performed By: #### L 500.2500, L100.0500 #### [facility] [address] [place], [address] Hemoglobin (Bld) [Mass/Vol] 6.6 g/dL Low 13.0-16.5 [facility] Comment on above: Order Comment: 542.1 Performed By: #### L 500.2500, L100.0500 #### [facility] [address] [place], [address] MCH (RBC) [Entitic mass] 28.9 pg Normal 27.0-32.0 [facility] Comment on above: Order Comment: 542.1 Performed By: #### L 500.2500, L100.0500 #### [facility] [address] [place], [address] MCHC (RBC) [Mass/Vol] 31.1 g/dL Low 32-36 [facility] Comment on above: Order Comment: 542.1 Performed By: #### L 500.2500, L100.0500 #### [facility] [address] [place], [address] MCV (RBC) [Entitic vol] 93.0 fL Normal 80-94 [facility] Comment on above: Order Comment: 542.1 Performed By: #### L 500.2500, L100.0500 #### [facility] [address] [place], [address] Platelet mean volume (Bld) [Entitic vol] 8.5 fL Normal 6.2-12.0 [facility] Comment on above: Order Comment: 542.1 Performed By: #### L 500.2500, L100.0500 #### [facility] [address] [place], [address] Platelets (Bld) [#/Vol] 516 10*3/uL High 150-450 [facility] Comment on above: Order Comment: 542.1 Performed By: #### L 500.2500, L100.0500 #### [facility] [address] [place], [address] RBC (Bld) [#/Vol] 2.28 10*6/uL Low 4.6-6.2 [facility] Comment on above: Order Comment: 542.1 Performed By: #### L 500.2500, L100.0500 #### [facility] [address] [place], [address] RDW SD 47.1 fl High 35.1-43.9 [facility] Comment on above: Order Comment: 542.1 Performed By: #### L 500.2500, L100.0500 #### [facility] [address] [place], [address] WBC (Bld) [#/Vol] 12.9 10*3/uL High 4.4-11.0 [facility] Comment on above: Order Comment: 542.1 Performed By: #### L 500.2500, L100.0500 #### [facility] [address] [place], [address] ED Nursing Noteon 07-19-2025 ED Nursing Note [facility] arrived to transport pt to home facility . Pt transferred to stretcher without difficulty. Pt A&O, calm, and cooperative, no signs of distress noted. VS stable. Resp even, non labored. Normal [facility] ED Nursing Note Report given to [facility]. Marleni Normal [facility] ED Nursing Note Post H&H not needed per Dr. Rose. Ok to dc 30 mins after unit is complete. Normal [facility] ED Nursing Note Meal order placed Normal [facility] ED Nursing Note This RN sat bedside for the first 15 mins of blood transfusion. Pt denied c/o any transfusion reaction symptoms. Pt's vitals rechecked before leaving the room. Normal [facility] ED Provider Noteon ED Provider Note Normal [facility] MANUAL DIFFERENTIALon 2024 BASOPHILS (10*3/UL) IN BLOOD BY MANUAL COUNT 0.3 10*3/uL High 0.0-0.2 [facility] Comment on above: Performed By: #### L [id number], [id number] ####Commissioner Conservation Of Resources: UNA ARCE ([id number])[facility] (SBHL[facility])[address] [place] [address] BASOPHILS/100 LEUKOCYTES IN BLOOD BY MANUAL COUNT 2 % Normal 0-2 [facility] Comment on above: Performed By: #### L [id number], [id number] ####Commissioner Conservation Of Resources: UNA ARCE ([id number])[facility] [place] ([facility])[address] CELLS COUNTED TOTAL (#) IN BLOOD 100 Normal [facility] Comment on above: Performed By: #### L [id number], [id number] ####Commissioner Conservation Of Resources: UNA ARCE ([id number])[facility] [place] ([facility])[address] DIFFERENTIAL METHOD Manual differential performed Normal [facility] Comment on above: Performed By: #### L [id number], [id number] ####Commissioner Conservation Of Resources: UNA ARCE ([id number])[facility] (SB[facility])[address] EOSINOPHILS (10*3/UL) IN BLOOD BY MANUAL COUNT 0.3 10*3/uL Normal 0.0-0.5 [facility] Comment on above: Performed By: #### L [id number], [id number] ####Commissioner Conservation Of Resources: UNA ARCE ([id number])[facility] [place] ([facility])[address] [place] [address] [place] EOSINOPHILS/100 LEUKOCYTES IN BLOOD BY MANUAL COUNT 2 % Normal 0-6 [facility] Comment on above: Performed By: #### L [id number], [id number] ####Commissioner Conservation Of Resources: UNA ARCE ([id number])[facility] [place] ([facility])[address] [place] [address] [place] HYPOCHROMIA (PRESENCE) IN BLOOD BY LIGHT MICROSCOPY Slight Abnormal (none) [facility] Comment on above: Performed By: #### L [id number], [id number] ####Commissioner Conservation Of Resources: UNA ARCE ([id number])[facility] [place] ([facility])[address] LEUKOCYTE MORPHOLOGY FINDING IN BLOOD Normal Normal [facility] Comment on above: Performed By: #### L [id number], [id number] ####Commissioner Conservation Of Resources: UNAANJEL ARCE ([id number])[facility] (SB[facility])[address] [place] [address] [place] LYMPHOCYTES (10*3/UL) IN BLOOD BY MANUAL COUNT 3.3 10*3/uL Normal 1.0-4.3 [facility] Comment on above: Performed By: #### L [id number], [id number] ####Commissioner Conservation Of Resources: UNAANJEL ARCE ([phone])[facility] [place] ([facility])[address] [place] [address] [place] LYMPHOCYTES/100 LEUKOCYTES IN BLOOD BY MANUAL COUNT 21 % Normal 15-45 [facility] Comment on above: Performed By: #### L OZ2617, [id number] ####Commissioner Conservation Of Resources: UNAANJEL ARCE ([phone])[facility] [place] ([facility])[address] [place] [address] [place] MONOCYTES (10*3/UL) IN BLOOD BY MANUAL COUNT 1.4 10*3/uL High 0.0-0.9 [facility] Comment on above: Performed By: #### L [id number], [id number] ####Commissioner Conservation Of Resources: UNA BERMUDEZPEDRO ([phone])[facility] [place] ([facility])[address] [place] [address] [place] MONOCYTES/100 LEUKOCYTES IN BLOOD BY MANUAL COUNT 9 % Normal 5-13 [facility] Comment on above: Performed By: #### L [id number], [id number] ####Commissioner Conservation Of Resources: UNA BERMUDEZPEDRO ([id number])[facility] [place] ([facility])[address] [place] [address] [place] OVALOCYTES PRESENCE IN BLOOD BY LIGHT MICROSCOPY Slight Abnormal (none) [facility] Comment on above: Performed By: #### L [id number], [id number] ####Commissioner Conservation Of Resources: UNA STAUFFERMELANIE ([phone])[facility] [place] ([facility])[address] [place] [address] [place] PLATELET MORPHOLOGY IN BLOOD Normal Normal [facility] Comment on above: Performed By: #### L [id number], [id number] ####Commissioner Conservation Of Resources: UNAANJLE ARCE ([id number])[facility] (SB[facility])[address] POLYCHROMASIA IN BLOOD BY LIGHT MICROSCOPY Slight Abnormal (none) [facility] Comment on above: Performed By: #### L [id number], [id number] ####Commissioner Conservation Of Resources: UNA BERMUDEZPEDRO ([id number])[facility] ([facility])[address] SEGEMENTED NEUTROPHILS/100 LEUKOCYTES BY MANUAL COUNT 66 % Normal 38-82 [facility] Comment on above: Performed By: #### L [id number], [id number] ####Commissioner Conservation Of Resources: UNA YAZMIN ([id number])[facility] (SBHLAB)[address] [place] [address] SEGMENTED NEUTROPHILS (10*3/UL)IN BLOOD BY MANUAL COUNT 10.3 10*3/uL High 1.8-7.5 [facility] Comment on above: Performed By: #### L [id number], [id number] ####Commissioner Conservation Of Resources: UNA YAZMIN ([id number])[facility] (SBHL[facility])[address] [place] [address] Manual differential performe d Ql (Bld)Ordered By: Myriam Choi on 07-19-2025 Basophils (Bld) [#/Vol] 0.3 10*3/uL High 0.0 - 0.2 10*3/uL [facility] Basophils/100 WBC (Bld) 2 % 0 - 2 % [facility] Cells Counted Total (Bld) [#] 100 {cells} [facility] Differential Method Manual differential performed [facility] Eosinophils (Bld) [#/Vol] 0.3 10*3/uL 0.0 - 0.5 10*3/uL [facility] Eosinophils/100 WBC (Bld) 2 % 0 - 6 % [facility] Hypochromia Ql (Bld) Slight Abnormal (none) [facility] Interpretation and review of laboratory results Abnormal [facility] Leukocyte morphology finding Nom (Bld) Normal [facility] Lymphocytes (Bld) [#/Vol] 3.3 10*3/uL 1.0 - 4.3 10*3/uL [facility] Lymphocytes/100 WBC (Bld) 21 % 15 - 45 % [facility] Monocytes (Bld) [#/Vol] 1.4 10*3/uL High 0.0 - 0.9 10*3/uL [facility] Monocytes/100 WBC (Bld) 9 % 5 - 13 % [facility] Neutrophils (Bld) [#/Vol] 10.3 10*3/uL High 1.8 - 7.5 10*3/uL [facility] Ovalocytes LM Ql (Bld) Slight Abnormal (none) [facility] Platelet morphology finding Nom (Bld) Normal [facility] Polychromasia LM Ql (Bld) Slight Abnormal (none) [facility] Segmented neutrophils/100 WBC (Bld) 66 % 38 - 82 % [facility] No Panel Informationon 07-19 Blood Expiration Date [id number] S [facility] Crossmatch interpretation COMP [facility] Blood Type 600 [facility] PRODUCT CODE [id number] [facility] ABO A [id number] RH Negative [facility] Volume 300 mL [facility] Progress Noteon 07-19-2025 Progress Note Normal [facility] Progress Noteon 07-15-2025 Progress Note Normal [facility] 36on 07-14-2025 36 Faxed signed order t o [facility] fax#[phone], and scanned to Media. Normal [facility] [address] Hess. Normal [facility] 36 [facility] faxed order to discontinue Hydralazine, and Spironolactone. Placed on nurses desk to have Dr. Hess sign it. Normal [facility] 36on 07-07-2025 36 Darby called back t o verify the diuretic instructions; she had the Lasix written down, so I verified that it was actually torsemide. She verbalized understanding and was thankful for the call. Normal [facility] 36 Normal [facility] Folates,Serum (Folic Acid)on 07-07-2025 FOLATES,SERUM 8.25 ng/mL Normal 4.60-34.80 [facility] Comment on above: Order Comment: 542-1 N Performed By: #### L 506.0200, L100.0600, L503.0106, L503.6030 #### [facility] [address] [place], [address] HH, Hemoglobin AND Hematocri ton 07-07-2025 Hematocrit (Bld) [Volume fraction] 23.3 % Low 40-54 [facility] Comment on above: Order Comment: 542-1 Performed By: #### L 506.0200, L100.0600, L503.0106, L503.6030 #### [facility] [address] [place], [address] Hemoglobin (Bld) [Mass/Vol] 7.3 g/dL Low 13.0-16.5 [facility] Comment on above: Order Comment: 54-1 Performed By: #### L 506.0200, L100.0600, L503.0106, L503.6030 #### [facility] [address] [place], [address] Iron+Iron Binding Capacityon 07-07-2025 Iron [Mass/Vol] 27 ug/dL Low 65-175 [facility] Comment on above: Order Comment: 542-1 Performed By: #### L 506.0200, L100.0600, L503.0106, L503.6030 #### [facility] [address] [place], [address] IRON SATURATION 9.6 Normal 9-55 [facility] Comment on above: Order Comment: 542-1 Performed By: #### L 506.0200, L100.0600, L503.0106, L503.6030 #### [facility] [address] [place], [address] TIBC 278 ug/dL Normal 250-450 [facility] Comment on above: Order Comment: 542-1 Performed By: #### L 506.0200, L100.0600, L503.0106, L503.6030 #### [facility] [address] [place], [address] UIBC 251 ug/dL Normal 228-428 [facility] Comment on above: Order Comment: 542-1 Performed By: #### L 506.0200, L100.0600, L503.0106, L503.6030 #### [facility] [address] [place], [address] Vitamin B12on 07-07-2025 Cobalamin (Vitamin B12) [Mass/Vol] 334 pg/mL Normal 180-914 [facility] Comment on above: Order Comment: 542-1 Performed By: #### L 506.0200, L100.0600, L503.0106, L503.6030 #### [facility] [address] [place], [address] 36on 07-06-2025 36 Cr 1.9, K+ 3.7, hemoglobin 7.1 on 07/05/25. BP's mostly 100-110's/50/60's; one SBP outlier of 94, one outlier of 121. HR's 60-70's. Note from nursing: Normal [facility] 36 [facility] faxed 07/05/25 BMP, and CBC, and vitals. Records to be scanned to chart. Normal [facility] 36 Normal [facility] Basic Metabolic Profile (BMP )on 07-05-2025 BUN/CRE 20.8 RATIO High 06-28 [facility] Comment on above: Order Comment: 542-1 N Performed By: #### L 506.0200, L100.0600, L503.0106, L503.6030 #### [facility] [address] [place], [address] Calcium [Mass/Vol] 8.5 mg/dL Normal 7.6-11.0 [facility] Comment on above: Order Comment: 542-1 N Performed By: #### L 506.0200, L100.0600, L503.0106, L503.6030 #### [facility] [address] [place], [address] Chloride [Moles/Vol] 101 mmol/L Normal 98-108 [facility] Comment on above: Order Comment: 542-1 N Performed By: #### L 506.0200, L100.0600, L503.0106, L503.6030 #### [facility] [address] [place], [address] CO2 [Moles/Vol] 28.6 mmol/L Normal 21.0-32.0 [facility] Comment on above: Order Comment: 542-1 N Performed By: #### L 506.0200, L100.0600, L503.0106, L503.6030 #### [facility] [address] [place], [address] Creatinine [Mass/Vol] 1.90 mg/dL High 0.70-1.20 [facility] Comment on above: Order Comment: 542-1 N Performed By: #### L 506.0200, L100.0600, L503.0106, L503.6030 #### [facility] [address] [place], [address] GAP 10 Normal 5-15 [facility] Comment on above: Order Comment: 542-1 N Performed By: #### L 506.0200, L100.0600, L503.0106, L503.6030 #### [facility] Laboratory [address] [place], [address] GFR/1.73 sq M.predicted among non-blacks MDRD (S/P/Bld) [Vol rate/Area] 33 mL/min/{1.73_m2} Low >60 [facility] Comment on above: Order Comment: 542-1 N Result Comment: mL/m in/1.73m2 CKD-EPI Creatinine Equation (2020) Performed By: #### L 506.0200, L100.0600, L503.0106, L503.6030 #### [facility] [address] [place], [address] Glucose [Mass/Vol] 92 mg/dL Normal 70-99 [facility] Comment on above: Order Comment: 542-1 N Performed By: #### L 506.0200, L100.0600, L503.0106, L503.6030 #### [facility] [address] [place], [address] Potassium [Moles/Vol] 3.7 mmol/L Normal 3.3-5.1 [facility] Comment on above: Order Comment: 542-1 N Performed By: #### L 506.0200, L100.0600, L503.0106, L503.6030 #### [facility] [address] [place], [address] Sodium [Moles/Vol] 140 mmol/L Normal 133-145 [facility] Comment on above: Order Comment: 542-1 N Performed By: #### L 506.0200, L100.0600, L503.0106, L503.6030 #### [facility] [address] [place], [address] Urea nitrogen [Mass/Vol] 40 mg/dL High 4-19 [facility] Comment on above: Order Comment: 542-1 N Performed By: #### L 506.0200, L100.0600, L503.0106, L503.6030 #### [facility] [address] [place], [address] CBC-Complete Blood Cnt No Di ffon 07-05-2025 Erythrocyte distribution width (RBC) [Ratio] 14.8 % High 11.6-14.6 [facility] Comment on above: Order Comment: 542-1 N Performed By: #### L 506.0200, L100.0600, L503.0106, L503.6030 #### [facility] [address] [place], [address] Hematocrit (Bld) [Volume fraction] 23.2 % Low 40-54 [facility] Comment on above: Order Comment: 542-1 N Performed By: #### L 506.0200, L100.0600, L503.0106, L503.6030 #### [facility] [address] [place], [address] Hemoglobin (Bld) [Mass/Vol] 7.1 g/dL Low 13.0-16.5 [facility] Comment on above: Order Comment: 542-1 N Performed By: #### L 506.0200, L100.0600, L503.0106, L503.6030 #### [facility] [address] [place], [address] MCH (RBC) [Entitic mass] 28.9 pg Normal 27.0-32.0 [facility] Comment on above: Order Comment: 542-1 N Performed By: #### L 506.0200, L100.0600, L503.0106, L503.6030 #### [facility] [address] [place], [address] MCHC (RBC) [Mass/Vol] 30.6 g/dL Low 32-36 [facility] Comment on above: Order Comment: 542-1 N Performed By: #### L 506.0200, L100.0600, L503.0106, L503.6030 #### [facility] [address] [place], [address] MCV (RBC) [Entitic vol] 94.3 fL High 80-94 [facility] Comment on above: Order Comment: 542-1 N Performed By: #### L 506.0200, L100.0600, L503.0106, L503.6030 #### [facility] [address] [place], [address] Platelet mean volume (Bld) [Entitic vol] 8.8 fL Normal 6.2-12.0 [facility] Comment on above: Order Comment: 542-1 N Performed By: #### L 506.0200, L100.0600, L503.0106, L503.6030 #### [facility] [address] [place], [address] Platelets (Bld) [#/Vol] 507 10*3/uL High 150-450 [facility] Comment on above: Order Comment: 542-1 N Performed By: #### L 506.0200, L100.0600, L503.0106, L503.6030 #### [facility] [address] [place], [address] RBC (Bld) [#/Vol] 2.46 10*6/uL Low 4.6-6.2 [facility] Comment on above: Order Comment: 542-1 N Performed By: #### L 506.0200, L100.0600, L503.0106, L503.6030 #### [facility] [address] [place], [address] RDW SD 49.7 fl High 35.1-43.9 [facility] Comment on above: Order Comment: 542-1 N Performed By: #### L 506.0200, L100.0600, L503.0106, L503.6030 #### [facility] [address] [place], [address] WBC (Bld) [#/Vol] 12.0 10*3/uL High 4.4-11.0 [facility] Comment on above: Order Comment: 542-1 N Performed By: #### L 506.0200, L100.0600, L503.0106, L503.6030 #### [facility] [address] [place], [address] Progress Noteon 06-30-2025 Progress Note Normal [facility] Basic Metabolic Profile (BMP )on 06-28-2025 BUN/CRE 23.4 RATIO High - [facility] Comment on above: Order Comment: 212.1 Performed By: #### L 500.2500 #### [facility] [address] [place], [address] Calcium [Mass/Vol] 8.4 mg/dL Normal 7.6-11.0 [facility] Comment on above: Order Comment: 212.1 Performed By: #### L 500.2500 #### [facility] [address] [place], [address] Chloride [Moles/Vol] 100 mmol/L Normal 98-108 [facility] Comment on above: Order Comment: 212.1 Performed By: #### L 500.2500 #### [facility] [address] [place], [address] CO2 [Moles/Vol] 27.4 mmol/L Normal 21.0-32.0 [facility] Comment on above: Order Comment: 212.1 Performed By: #### L 500.2500 #### [facility] [address] [place], [address] Creatinine [Mass/Vol] 1.72 mg/dL High 0.70-1.20 [facility] Comment on above: Order Comment: 212.1 Performed By: #### L 500.2500 #### [facility] [address] [place], [address] GAP 10 Normal 5-15 [facility] Comment on above: Order Comment: 212.1 Performed By: #### L 500.2500 #### [facility] [address] [place], [address] GFR/1.73 sq M.predicted among non-blacks MDRD (S/P/Bld) [Vol rate/Area] 38 mL/min/{1.73_m2} Low >60 [facility] Comment on above: Order Comment: 212.1 Result Comment: mL/m in/1.73m2 CKD-EPI Creatinine Equation (2020) Performed By: #### L 500.2500 #### [facility] [address] [place], [address] Glucose [Mass/Vol] 88 mg/dL Normal 70-99 [facility] Comment on above: Order Comment: 212.1 Performed By: #### L 500.2500 #### [facility] [address] [place], [address] Potassium [Moles/Vol] 3.9 mmol/L Normal 3.3-5.1 [facility] Comment on above: Order Comment: 212.1 Performed By: #### L 500.2500 #### [facility] [address] [place], [address] Sodium [Moles/Vol] 137 mmol/L Normal 133-145 [facility] Comment on above: Order Comment: 212.1 Performed By: #### L 500.2500 #### [facility] [address] [place], [address] Urea nitrogen [Mass/Vol] 40 mg/dL High 4-19 [facility] Comment on above: Order Comment: 212.1 Performed By: #### L 500.2500 #### [facility] [address] [place], [address] 36on 06-24-2025 36 Normal [facility] 36 Normal [facility] 36 06/24/25 BMP, blood pressure, pulse summary, and medication notes faxed from [facility]. Records scanned to Media. Normal [facility] Basic Metabolic Profile (BMP )on 06-24-2025 BUN/CRE 25.8 RATIO High 10-20 [facility] Comment on above: Order Comment: 212.1 Performed By: #### L 500.2500 #### [facility] [address] [place], [address] Calcium [Mass/Vol] 8.4 mg/dL Normal 7.6-11.0 [facility] Comment on above: Order Comment: 212.1 Performed By: #### L 500.2500 #### [facility] [address] [place], [address] Chloride [Moles/Vol] 97 mmol/L Low 98-108 [facility] Comment on above: Order Comment: 212.1 Performed By: #### L 500.2500 #### [facility] [address] [place], [address] CO2 [Moles/Vol] 26.9 mmol/L Normal 21.0-32.0 [facility] Comment on above: Order Comment: 212.1 Performed By: #### L 500.2500 #### [facility] [address] [place], [address] Creatinine [Mass/Vol] 1.80 mg/dL High 0.70-1.20 [facility] Comment on above: Order Comment: 212.1 Performed By: #### L 500.2500 #### [facility] [address] [place], [address] GAP 12 Normal 5-15 [facility] Comment on above: Order Comment: 212.1 Performed By: #### L 500.2500 #### [facility] [address] [place], [address] GFR/1.73 sq M.predicted among non-blacks MDRD (S/P/Bld) [Vol rate/Area] 36 mL/min/{1.73_m2} Low >60 [facility] Comment on above: Order Comment: 212.1 Result Comment: mL/m in/1.73m2 CKD-EPI Creatinine Equation (2020) Performed By: #### L 500.2500 #### [facility] [address] [place], [address] Glucose [Mass/Vol] 87 mg/dL Normal 70-99 [facility] Comment on above: Order Comment: 212.1 Performed By: #### L 500.2500 #### [facility] [address] [place], [address] Potassium [Moles/Vol] 3.8 mmol/L Normal 3.3-5.1 [facility] Comment on above: Order Comment: 212.1 Performed By: #### L 500.2500 #### [facility] [address] [place], [address] Sodium [Moles/Vol] 137 mmol/L Normal 133-145 [facility] Comment on above: Order Comment: 212.1 Performed By: #### L 500.2500 #### [facility] [address] [place], [address] Urea nitrogen [Mass/Vol] 47 mg/dL High 4-19 [facility] Comment on above: Order Comment: 212.1 Performed By: #### L 500.2500 #### [facility] [address] [place], [address] Progress Noteon 06-24-2025 Progress Note Attempted to meet with pt. He no longer resides here. Facility uncertain where he has moved to. Message left on primary contacts number Bereket to return call to the palliative group at [phone] [facility] BASIC METABOLIC PANELon 06-09 Anion gap [Moles/Vol] 15 mmol/L High 3-13 [facility] Comment on above: Performed By: #### L AB15 ####Commissioner Conservation Of Resources: UAN ARCE ([phone])[facility] (SBHLAB)[address] Calcium [Mass/Vol] 8.4 mg/dL Low 8.8-10.0 [facility] Comment on above: Performed By: #### L AB15 ####Commissioner [employer] Of Resources: UNA ARCE ([id number])[facility] ([facility])[address] Chloride [Moles/Vol] 97 mmol/L Low 98-107 [facility] Comment on above: Performed By: #### L AB15 ####Commissioner [employer] Of Resources: UNA MOHRCER ([phone])[facility] [place] ([facility])[address] CO2 [Moles/Vol] 25 mmol/L Normal 23-31 [facility] Comment on above: Performed By: #### L AB15 ####Commissioner [employer] Of Resources: UNA ARCE ([phone])[facility] [place] ([facility])[address] Creatinine [Mass/Vol] 1.97 mg/dL High 0.72-1.25 [facility] Comment on above: Performed By: #### L AB15 ####Commissioner [employer] Resources: UNA STAUFFERMELANIE ([phone])[facility] [place] ([facility])[address] GLOMERULAR FILTRATION RATE ML/MIN/1.73 SQ M.PREDICTED 31.9 mL/min/1.73m*2 Low >60.0 [facility] Comment on above: Result Comment: Calc ulation based on the Chronic Kidney Disease Epidemiology Collaboration (CKD-EPI) equation refit without adjustment for race Performed By: #### L AB15 ####Commissioner [employer] Of Resources: UNA ARCE ([phone])[facility] [place] ([facility])[address] Glucose [Mass/Vol] 108 mg/dL Normal 82-115 [facility] Comment on above: Performed By: #### L AB15 ####Commissioner [employer] Of Resources: UNA ARCE ([phone])[facility] (SBHLAB)[address] Potassium [Moles/Vol] 4.1 mmol/L Normal 3.5-5.1 [facility] Comment on above: Result Comment: [facility] potassium values may be up to 0.5 mmol/L lower than serum values. Performed By: #### L AB15 ####Commissioner [employer] Resources: UNA ARCE ([phone])[facility] (SBHLAB)[address] Sodium [Moles/Vol] 137 mmol/L Normal 136-145 [facility] Comment on above: Performed By: #### L AB15 ####Commissioner [employer] Of Resources: UNA ARCE ([phone])[facility] Urea nitrogen [Mass/Vol] 51 mg/dL High 9-23 [facility] Comment on above: Performed By: #### L AB15 ####Commissioner [employer] Resources: UNA ARCE ([phone])[facility] ([facility] BLOOD TYPE AND SCREEN GELon 06-21-2025 ABO GROUPING A Normal [facility] Comment on above: Performed By: #### L [id number] ####Commissioner [employer] Of Resources: UNA ARCE ([id number])[facility] ([facility])[address] [place] [address] RH TYPE IN BLOOD Negative Normal [facility] Comment on above: Performed By: #### L [id number] ####Commissioner [employer] Of Resources: UNA ARCE ([phone])[facility] ([facility])[address] [place] [address] Basic Metabolic Profile (BMP )on 06-21-2025 BUN/CRE 25.4 RATIO High 10-20 [facility] Comment on above: Order Comment: 212.1 Performed By: #### L 100.0500, L500.2500 #### [facility] [address] [place], [address] Calcium [Mass/Vol] 8.4 mg/dL Normal 7.6-11.0 [facility] Comment on above: Order Comment: 212.1 Performed By: #### L 100.0500, L500.2500 #### [facility] [address] [place], [address] Chloride [Moles/Vol] 97 mmol/L Low 98-108 [facility] Comment on above: Order Comment: 212.1 Performed By: #### L 100.0500, L500.2500 #### [facility] [address] [place], [address] CO2 [Moles/Vol] 29.6 mmol/L Normal 21.0-32.0 [facility] Comment on above: Order Comment: 212.1 Performed By: #### L 100.0500, L500.2500 #### [facility] [address] [place], [address] Creatinine [Mass/Vol] 1.86 mg/dL High 0.70-1.20 [facility] Comment on above: Order Comment: 212.1 Performed By: #### L 100.0500, L500.2500 #### [facility] [address] [place], [address] GAP 10 Normal 5-15 [facility] Comment on above: Order Comment: 212.1 Performed By: #### L 100.0500, L500.2500 #### [facility] [address] [place], [address] GFR/1.73 sq M.predicted among non-blacks MDRD (S/P/Bld) [Vol rate/Area] 34 mL/min/{1.73_m2} Low >60 [facility] Comment on above: Order Comment: 212.1 Result Comment: mL/m in/1.73m2 CKD-EPI Creatinine Equation (2020) Performed By: #### L 100.0500, L500.2500 #### [facility] [address] [place], [address] Glucose [Mass/Vol] 93 mg/dL Normal 70-99 [facility] Comment on above: Order Comment: 212.1 Performed By: #### L 100.0500, L500.2500 #### [facility] [address] [place], [address] Potassium [Moles/Vol] 3.8 mmol/L Normal 3.3-5.1 [facility] Comment on above: Order Comment: 212.1 Performed By: #### L 100.0500, L500.2500 #### [facility] [address] [place], [address] Sodium [Moles/Vol] 136 mmol/L Normal 133-145 [facility] Comment on above: Order Comment: 212.1 Performed By: #### L 100.0500, L500.2500 #### [facility] [address] [place], [address] Urea nitrogen [Mass/Vol] 47 mg/dL High 4-19 [facility] Comment on above: Order Comment: 212.1 Performed By: #### L 100.0500, L500.2500 #### [facility] [address] [place], [address] Basic metabolic 1998 panelon 06-21-2025 Anion gap [Moles/Vol] 15 mmol/L High 3 - 13 mmol/L [facility] Calcium [Mass/Vol] 8.4 mg/dL Low 8.8 - 10. 0 mg/dL [facility] Chloride [Moles/Vol] 97 mmol/L Low 98 - 10 7 mmol/L [facility] CO2 [Moles/Vol] 25 mmol/L 23 - 31 mmol/L [facility] Creatinine [Mass/Vol] 1.97 mg/dL High 0.72 - 1.25 mg/dL [facility] GFR/1.73 sq M.predicted (S/P/Bld) [Vol rate/Area] 31.9 mL/min Low - PINF [facility] Comment on above: Calculation based on the Chronic Kidney Disease Epidemiology Collaboration (CKD-EPI) equation refit without adjustment for race Glucose [Mass/Vol] 108 mg/dL 82 - 115 mg/dL [facility] Interpretation and review of laboratory results Abnormal [facility] Potassium [Moles/Vol] 4.1 mmol/L 3.5 - 5.1 mmol/L [facility] Comment on above: Plasma potassium traci ues may be up to 0.5 mmol/L lower than serum values. Sodium [Moles/Vol] 137 mmol/L 136 - 145 mmol/L [facility] Urea nitrogen [Mass/Vol] 51 mg/dL High 9 - 23 mg/d L [facility] Blood type and Crossmatch pa valente (Bld)on 06-21-2025 ABO group Nom (Bld) A [facility] Blood group antibody screen GEL Ql Negative [facility] D Ag Ql (RBC) Negative [facility] CBC W Auto Differential pane l (Bld)Ordered By: Sallie Powell on 06-21-2025 Erythrocyte distribution width (RBC) [Ratio] 16.7 % High 11.5 - 15.0 % [facility] Hematocrit (Bld) [Volume fraction] 23.3 % Low 40.0 - 52.0 % [facility] Hemoglobin (Bld) [Mass/Vol] 7.4 g/dL Low 13.0 - 18.0 g/dL [facility] Interpretation and review of laboratory results Abnormal [facility] MCH (RBC) [Entitic mass] 29 pg 26. 0 - 34.0 pg [facility] MCHC (RBC) [Mass/Vol] 31.8 % 30.5 - 36.0 % [facility] MCV (RBC) [Entitic vol] 91.4 fL 77.0 - 99.0 fL [facility] Platelet mean volume (Bld) [Entitic vol] 8.5 fL Low 9.0 - 12.7 fL [facility] Platelets (Bld) [#/Vol] 513 10*3/uL High 140 - 440 10*3/uL [facility] RBC (Bld) [#/Vol] 2.55 10*6/uL Low 4.40 - 5.9 0 10*6/uL [facility] WBC (Bld) [#/Vol] 16.8 10*3/uL High 3.6 - 10.7 10*3/uL [facility] CBC WITH AUTO DIFFERENTIALon 06-21-2025 Erythrocyte distribution width (RBC) [Ratio] 16.7 % High 11.5-15.0 [facility] Comment on above: Performed By: #### L [id number], [id number] ####Commissioner [employer] Resources: UNA ARCE ([id number])[facility] [place] ([facility])[address] Hematocrit (Bld) [Volume fraction] 23.3 % Low 40.0-52.0 [facility] Comment on above: Performed By: #### L [id number], [id number] ####Commissioner [employer] Of Resources: UNA ARCE ([id number])[facility] (SB[facility])[address] Hemoglobin (Bld) [Mass/Vol] 7.4 g/dL Low 13.0-18.0 [facility] Comment on above: Performed By: #### L [id number], [id number] ####Commissioner [employer] Of Resources: UNA ARCE ([id number])[facility] [place] ([facility])[address] MCH (RBC) [Entitic mass] 29.0 pg Normal 26.0-34.0 [facility] Comment on above: Performed By: #### L [id number], [id number] ####Commissioner [employer] Resources: UNA ARCE ([id number])[facility] (SB[facility])[address] MCHC 31.8 % Normal 30.5-36.0 [facility] Comment on above: Performed By: #### L [id number], [id number] ####Commissioner [employer] Of Resources: UNA ARCE ([id number])[facility] ([facility])[address] MCV (RBC) [Entitic vol] 91.4 fL Normal 77.0-99.0 [facility] Comment on above: Performed By: #### L [id number], [id number] ####Commissioner [employer] Resources: UNA ARCE ([id number])[facility] (SBHLAB)[address] Platelet mean volume (Bld) [Entitic vol] 8.5 fL Low 9.0-12.7 [facility] Comment on above: Performed By: #### L [id number], [id number] ####Commissioner [employer] Of Resources: UNA ARCE ([id number])[facility] (SB[facility]AB)[address] Platelets (Bld) [#/Vol] 513 10*3/uL High 140-440 [facility] Comment on above: Performed By: #### L [id number], [id number] ####Commissioner [employer] Of Resources: UNA ARCE ([id number])[facility] (SBHLAB)[address] RBC (Bld) [#/Vol] 2.55 10*6/uL Low 4.40-5.90 [facility] Comment on above: Performed By: #### L [id number], [id number] ####Commissioner [employer] Of Resources: UNA ARCE ([id number])[facility] (SB[facility])[address] WBC (Bld) [#/Vol] 16.8 10*3/uL High 3.6-10.7 [facility] Comment on above: Performed By: #### L [id number], [id number] ####Commissioner [employer] Of Resources: UNA ARCE ([id number])[facility] ([facility])[address] CBC-Complete Blood Cnt No Di ffon 06-21-2025 Erythrocyte distribution width (RBC) [Ratio] 16.8 % High 11.6-14.6 [facility] Comment on above: Order Comment: 212.1 Performed By: #### L 100.0500, L500.2500 #### [facility] [address] [place], [address] Hematocrit (Bld) [Volume fraction] 21.5 % Low 40-54 [facility] Comment on above: Order Comment: 212.1 Performed By: #### L 100.0500, L500.2500 #### [facility] [address] [place], [address] Hemoglobin (Bld) [Mass/Vol] 6.9 g/dL Low 13.0-16.5 [facility] Comment on above: Order Comment: 212.1 Performed By: #### L 100.0500, L500.2500 #### [facility] [address] [place], [address] MCH (RBC) [Entitic mass] 28.8 pg Normal 27.0-32.0 [facility] Comment on above: Order Comment: 212.1 Performed By: #### L 100.0500, L500.2500 #### [facility] [address] [place], [address] MCHC (RBC) [Mass/Vol] 32.1 g/dL Normal 32-36 [facility] Comment on above: Order Comment: 212.1 Performed By: #### L 100.0500, L500.2500 #### [facility] [address] [place], [address] MCV (RBC) [Entitic vol] 89.6 fL Normal 80-94 [facility] Comment on above: Order Comment: 212.1 Performed By: #### L 100.0500, L500.2500 #### [facility] [address] [place], [address] Platelet mean volume (Bld) [Entitic vol] 8.7 fL Normal 6.2-12.0 [facility] Comment on above: Order Comment: 212.1 Performed By: #### L 100.0500, L500.2500 #### [facility] [address] [place], [address] Platelets (Bld) [#/Vol] 457 10*3/uL High 150-450 [facility] Comment on above: Order Comment: 212.1 Performed By: #### L 100.0500, L500.2500 #### [facility] [address] [place], [address] RBC (Bld) [#/Vol] 2.40 10*6/uL Low 4.6-6.2 [facility] Comment on above: Order Comment: 212.1 Performed By: #### L 100.0500, L500.2500 #### [facility] [address] [place], [address] RDW SD 55.8 fl High 35.1-43.9 [facility] Comment on above: Order Comment: 212.1 Performed By: #### L 100.0500, L500.2500 #### [facility] [address] [place], [address] WBC (Bld) [#/Vol] 14.3 10*3/uL High 4.4-11.0 [facility] Comment on above: Order Comment: 212.1 Performed By: #### L 100.0500, L500.2500 #### [facility] [address] [place], [address] ECG 12-LEADon 06-21-2025 ECG 12-LEAD IMPRESSION: Sinus rhythm Atrial premature complexes Left anterior fascicular block Similar to prior on 04/13/25 Electronically Signed On 06-21-2025 23:12:12 EDT by Sagar Gilliam [facility] ED Nursing Noteon 06-21-2025 ED Nursing Note This RN at bedside for first 15 minutes of blood transfusion. Pt tolerating transfusion. VS updated in system. [facility] ED Nursing Note Patient arrives via EMS from [facility] following bloodwork that showed low hemoglobin. No overt signs of bleeding on arrival. Patient A&O4. Patient does endorse previous blood transfusions. Normal [facility] ED Provider Noteon ED Provider Note Normal [facility] Laboratory - Hematology and Cell countson 06-21-2025 Eosinophils (Bld) [#/Vol] 0.3 10*3/uL 0.0 - 0.5 10*3/uL [facility] Eosinophils/100 WBC (Bld) 2 % 0 - 6 % [facility] Giant platelets LM Ql (Bld) Rare Abnormal (none) [facility] Hypochromia Ql (Bld) Slight Abnormal (none) [facility] Lymphocytes (Bld) [#/Vol] 4 10*3/uL 1.0 - 4.3 10*3/uL [facility] Lymphocytes/100 WBC (Bld) 24 % 15 - 45 % [facility] Monocytes (Bld) [#/Vol] 1.2 10*3/uL High 0.0 - 0.9 10*3/uL [facility] Monocytes/100 WBC (Bld) 7 % 5 - 13 % S [facility] Neutrophils (Bld) [#/Vol] 11.3 10*3/uL High 1.8 - 7.5 10*3/uL [facility] Ovalocytes LM Ql (Bld) Rare Abnormal (none) [facility] RBC morphology finding Nom (Bld) abnormal [facility] Segmented neutrophils/100 WBC (Bld) 67 % 38 - 82 % [facility] MANUAL DIFFERENTIAL (CELLAVI BANDAR)on 06-21-2025 BAND NEUTROPHILS TOTAL PER COUNTED LEUKOCYTES BY MANUAL COUNT Normal [facility] Comment on above: Performed By: #### L [id number], [id number] ####Commissioner Conservation Of Resources: UNA ARCE ([id number])[facility] ([facility])[address] [place] [address] BASOPHILS TOTAL PER COUNTED LEUKOCYTES BY MANUAL COUNT Normal [facility] Comment on above: Performed By: #### L [id number], [id number] ####Commissioner Conservation Of Resources: UNA ARCE ([phone])[facility] ([facility])[address] [place] [address] [place] BLASTS TOTAL PER COUNTED LEUKOCYTES BY MANUAL COUNT Normal [facility] Comment on above: Performed By: #### L [id number], [id number] ####Commissioner Conservation Of Resources: UNA RACE ([phone])[facility] ([facility])[address] [place] [address] [place] EOSINOPHILS (10*3/UL) IN BLOOD-CELLAVISION 0.3 10*3/uL Normal 0.0-0.5 [facility] Comment on above: Performed By: #### L [id number], [id number] ####Commissioner Conservation Of Resources: UNA ARCE ([id number])[facility] ([facility])[address] [place] [address] [place] EOSINOPHILS TOTAL PER COUNTED LEUKOCYTES BY MANUAL COUNT 2 High 0-1 [facility] Comment on above: Performed By: #### L [id number], [id number] ####Commissioner Conservation Of Resources: UNA ARCE ([id number])[facility] ([facility])[address] [place] [address] [place] EOSINOPHILS/100 LEUKOCYTES IN BLOOD-CELLAVISION 2 % Normal 0-6 [facility] Comment on above: Performed By: #### L [id number], [id number] ####Commissioner Conservation Of Resources: UNA ARCE ([id number])[facility] ([facility] [place] [address] [place] HYPOCHROMIA (PRESENCE) IN BLOOD BY LIGHT MICROSCOPY Slight Abnormal (none) [facility] Comment on above: Performed By: #### L [id number], [id number] ####Commissioner Conservation Of Resources: UNA ARCE ([phone])[facility] ([facility])[address] [place] [address] [place] LYMPHOCYTES (10*3/UL) IN BLOOD-CELLAVISION 4.0 10*3/uL Normal 1.0-4.3 [facility] Comment on above: Performed By: #### L [id number], [id number] ####Commissioner Conservation Of Resources: UNA [phone])[facility] ([facility])[address] [place] [address] [place] LYMPHOCYTES TOTAL PER COUNTED LEUKOCYTES BY MANUAL COUNT 24 Normal [facility] Comment on above: Performed By: #### L [id number], [id number] ####Commissioner Conservation Of Resources: UNA ARCE ([id number])[facility] ([facility])[address] [place] [address] [place] LYMPHOCYTES/100 LEUKOCYTES IN BLOOD-CELLAVISION 24 % Normal 15-45 [facility] Comment on above: Performed By: #### L [id number], [id number] ####Commissioner Conservation Of Resources: UNA ARCE ([id number])[facility] [place] ([facility])[address] [place] [address] [place] METAMYELOCYTES TOTAL PER COUNTED LEUKOCYTES BY MANUAL COUNT Normal [facility] Comment on above: Performed By: #### L [id number], [id number] ####Commissioner Conservation Of Resources: UNA ARCE ([id number])[facility] [place] ([facility])[address] [place] [address] [place] MONOCYTES (10*3/UL) IN BLOOD-CELLAVISION 1.2 10*3/uL High 0.0-0.9 [facility] Comment on above: Performed By: #### L [id number], [id number] ####Commissioner Conservation Of Resources: UNA ARCE ([id number])[facility] [place] ([facility])[address] [place] [address] [place] MONOCYTES TOTAL PER COUNTED LEUKOCYTES BY MANUAL COUNT 7 Normal [facility] Comment on above: Performed By: #### L [id number], [id number] ####Commissioner Conservation Of Resources: UNA ARCE ([id number])[facility] [place] ([facility])[address] [place] [address] [place] MONOCYTES/100 LEUKOCYTES IN BLOOD-LUCIANA 7 % Normal 5-13 [facility] Comment on above: Performed By: #### L [id number], [id number] ####Commissioner Conservation Of Resources: UNA ARCE ([id number])[facility] ([facility])[address] [place] [address] [place] MYELOCYTES COUNTED BY MANUAL COUNT Normal [facility] Comment on above: Performed By: #### L [id number], [id number] ####Commissioner Conservation Of Resources: UNA STAUFFERMELANIE ([id number])[facility] ([facility])[address] [place] [address] [place] NEUTROPHILS TOTAL PER COUNTED LEUKOCYTES BY MANUAL COUNT 67 Normal [facility] Comment on above: Performed By: #### L [id number], [id number] ####Commissioner Conservation Of Resources: UNA BERMUDEZPEDRO ([id number])[facility] [place] ([facility])[address] [place] [address] [place] OVALOCYTES PRESENCE IN BLOOD BY LIGHT MICROSCOPY Rare Abnormal (none) [facility] Comment on above: Performed By: #### L [id number], [id number] ####Commissioner Conservation Of Resources: UNA ARCE ([id number])[facility] [place] ([facility])[address] [place] [address] [place] PLATELETS GIANT PRESENCE IN BLOOD BY LIGHT MICROSCOPY Rare Abnormal (none) [facility] Comment on above: Performed By: #### L [id number], [id number] ####Commissioner Conservation Of Resources: UNA ARCE ([id number])[facility] [place] ([facility])[address] [place] [address] [place] PROMYELOCYTES TOTAL PER COUNTED LEUKOCYTES BY MANUAL COUNT Normal [facility] Comment on above: Performed By: #### L [id number], [id number] ####Commissioner Conservation Of Resources: UNA ARCE ([id number])[facility] [place] ([facility])[address] [place] [address] [place] RBC MORPHOLOGY IN BLOOD abnormal Normal [facility] Comment on above: Performed By: #### L [id number], [id number] ####Commissioner Conservation Of Resources: UNA ARCE ([id number])[facility] [place] ([facility])[address] [place] [address] [place] SEGMENTED NEUTROPHILS (10*3/UL) IN BLOOD-CELLAVISION 11.3 10*3/uL High 1.8-7.5 [facility] Comment on above: Performed By: #### L [id number], [id number] ####Commissioner Conservation Of Resources: UNA STAUFFERMELANIE ([id number])[facility] ([facility])[address] SEGMENTED NEUTROPHILS/100 LEUKOCYTES-CE 67 % Normal 38-82 [facility] Comment on above: Performed By: #### L [id number], [id number] ####Commissioner Conservation Of Resources: UNA BERMUDEZPEDRO ([id number])[facility] [place] ([facility])[address] UNCLASSIFIED CELLS TOTAL PER COUNTED LEUKOCYTES BY MANUAL COUNT [facility] Comment on above: Performed By: #### L [id number], [id number] ####Commissioner Conservation Of Resources: UNA STAUFFERMELANIE ([id number])[facility] [place] ([facility])[address] VARIANT LYMPHOCYTES TOTAL PER COUNTED LEUKOCYTES BY MANUAL COUNT [facility] Comment on above: Performed By: #### L [id number], [id number] ####Commissioner Conservation Of Resources: UNA BERMUDEZPEDRO ([id number])[facility] [place] ([facility])[address] No Panel Informationon 06-21 P [place] [address] [facility] NE Interval [address] [facility] QRS [place] -[address] [facility] QRSD Interval 116 ms [facility] QT Interval [address] [facility] QTC Interval [address] [facility] T Wave [place] [address] [facility] Sinus rhythm Atrial premature complexes Left anterior fascicular block Similar to prior on 04/13/25 Electronically Signed On 06-21-2025 23:12:12 EDT by Sagar Posey, - 06/21/2025 IMPRESSION: Sinus rhythm Atrial premature complexes Left anterior fascicular block Similar to prior on 04/13/25 Electronically Signed On 06-21-2025 23:12:12 EDT by Sagar Gilliam [facility] Blood Expiration Date [id number] S [facility] Crossmatch interpretation COMP [facility] Dispense Status Transfused [facility] lt Product Blood Type 600 [facility] PRODUCT CODE [id number] [facility] Unit ABO A [facility] Unit Number [id number] [facility] RH Negative [facility] Unit Volume 300 mL [facility] Atypical Lymphocytes Manual [facility] Bands Manual [facility] Basophils Manual [facility] alth Blasts Manual [facility] Eosinophils Manual 2 High 0 - 1 [facility] Interpretation and review of laboratory results Abnormal [facility] Lymphocytes Manual 24 [facility] Metamyelocytes Manual [facility] Monocytes Manual 7 [facility] alth Myelocytes Manual [facility] ealt Neutrophils Manual 67 [facility] Promyelocytes Manual [facility] Unclassified Cells, Manual [facility] Vital signson 06-21-2025 Heart rate 63 /min bpm [facility] 36on 06-18-2025 36 Noted; thank you. Normal [facility] 36on 06-17-2025 36 Normal [facility] 36 Normal [facility] BASIC METABOLIC PANELon Anion gap [Moles/Vol] 13 mmol/L Normal 3-13 [facility] Comment on above: Performed By: #### L [id number] ####Commissioner Conservation Of Resources: ANAHY AVILA ([id number])[facility] JAN [place] ([facility])[address] [place] [address] [place] Calcium [Mass/Vol] 9.2 mg/dL Normal 8.8-10.0 [facility] Comment on above: Performed By: #### L [id number] ####Commissioner Conservation Of Resources: ANAHY AVILA ([id number])[facility] [place] ([facility])[address] [place] [address] [place] Chloride [Moles/Vol] 98 mmol/L Normal 98-107 [facility] Comment on above: Performed By: #### L [id number] ####Commissioner Conservation Of Resources: ANAHY AVILA ([id number])[facility] [place] [place] ([facility])[address] [place] [address] [place] CO2 [Moles/Vol] 29 mmol/L Normal 23-31 [facility] Comment on above: Performed By: #### L [id number] ####Commissioner Conservation Of Resources: ANAHY AVILA ([id number])[facility]ITAL[facility] ([facility])[address] [place] [address] [place] Creatinine [Mass/Vol] 2.05 mg/dL High 0.72-1.25 [facility] Comment on above: Performed By: #### L [id number] ####Commissioner Conservation Of Resources: ANAHY AVILA ([id number])[facility] [place] ([facility])[address] [place] [address] [place] GLOMERULAR FILTRATION RATE ML/MIN/1.73 SQ M.PREDICTED 30.4 mL/min/1.73m*2 Low >60.0 [facility] Comment on above: Result Comment: Calc ulation based on the Chronic Kidney Disease Epidemiology Collaboration (CKD-EPI) equation refit without adjustment for race Performed By: #### L [id number] ####Commissioner Conservation Of Resources: ANAHY AVILA ([id number])[facility] [place] ([facility])[address] [place] [address] [place] Glucose [Mass/Vol] 109 mg/dL Normal 82-115 [facility] Comment on above: Performed By: #### L [id number] ####Commissioner Conservation Of Resources: ANAHY AVILA ([id number])[facility] [place] ([facility])[address] [place] [address] [place] Potassium [Moles/Vol] 4.3 mmol/L Normal 3.5-5.1 [facility] Comment on above: Result Comment: [facility] potassium values may be up to 0.5 mmol/L lower than serum values. Performed By: #### L [id number] ####Commissioner Conservation Of Resources: ANAHY AVILA ([id number])[facility] [place] ([facility])[address] [place] [address] [place] Sodium [Moles/Vol] 140 mmol/L Normal 136-145 [facility] Comment on above: Performed By: #### L [id number] ####Commissioner Conservation Of Resources: ANAHY AVILA ([id number])[facility] SID ([facility])[address] Urea nitrogen [Mass/Vol] 54 mg/dL High 9-23 [facility] Comment on above: Performed By: #### L [id number] ####Commissioner Conservation Of Resources: ANAHY AVILA ([id number])[facility] SID ([facility])[address] Basic metabolic 1998 panelon 06-17-2025 Anion gap [Moles/Vol] 13 mmol/L 3 - 13 mmol/L [facility] Calcium [Mass/Vol] 9.2 mg/dL 8.8 - 10. 0 mg/dL [facility] Chloride [Moles/Vol] 98 mmol/L 98 - 10 7 mmol/L [facility] CO2 [Moles/Vol] 29 mmol/L 23 - 31 mmol/L [facility] Creatinine [Mass/Vol] 2.05 mg/dL High 0.72 - 1.25 mg/dL [facility] GFR/1.73 sq M.predicted (S/P/Bld) [Vol rate/Area] 30.4 mL/min Low - PINF [facility] Comment on above: Calculation based on the Chronic Kidney Disease Epidemiology Collaboration (CKD-EPI) equation refit without adjustment for race Glucose [Mass/Vol] 109 mg/dL 82 - 115 mg/dL [facility] Interpretation and review of laboratory results Abnormal [facility] Potassium [Moles/Vol] 4.3 mmol/L 3.5 - 5.1 mmol/L [facility] Comment on above: Plasma potassium traci ues may be up to 0.5 mmol/L lower than serum values. Sodium [Moles/Vol] 140 mmol/L 136 - 145 mmol/L [facility] Urea nitrogen [Mass/Vol] 54 mg/dL High 9 - 23 mg/d L [facility] CBC W Auto Differential pane l (Bld)Ordered By: Jessica Maldonado on 06-17-2025 Basophils (Bld) [#/Vol] 0.1 10*3/uL 0.0 - 0.2 10*3/uL [facility] Basophils/100 WBC (Bld) 0.7 % 0.0 - 2.0 % [facility] Eosinophils (Bld) [#/Vol] 0.4 10*3/uL 0.0 - 0.5 10*3/uL [facility] Eosinophils/100 WBC (Bld) 2.2 % 0.0 - 6.0 % [facility] Erythrocyte distribution width (RBC) [Ratio] 17.2 % High 11.5 - 15.0 % [facility] Hematocrit (Bld) [Volume fraction] 25.7 % Low 40.0 - 52.0 % [facility] Hemoglobin (Bld) [Mass/Vol] 8.2 g/dL Low 13.0 - 18.0 g/dL [facility] Immature granulocytes (Bld) [#/Vol] 0.2 10*3/uL High NINF - 0.1 10*3/uL [facility] Immature granulocytes/100 WBC (Bld) 1 % 0.0 - 2.0 % [facility] Interpretation and review of laboratory results Abnormal [facility] Lymphocytes (Bld) [#/Vol] 2.9 10*3/uL 1.0 - 4.3 10*3/uL [facility] Lymphocytes/100 WBC (Bld) 17.2 % 15.0 - 45.0 % [facility] MCH (RBC) [Entitic mass] 29.1 pg 26. 0 - 34.0 pg [facility] MCHC (RBC) [Mass/Vol] 31.9 % 30.5 - 36.0 % [facility] MCV (RBC) [Entitic vol] 91.1 fL 77.0 - 99.0 fL [facility] Monocytes (Bld) [#/Vol] 1.5 10*3/uL High 0.0 - 0.9 10*3/uL [facility] Monocytes/100 WBC (Bld) 9.1 % 5.0 - 13.0 % [facility] Neutrophils (Bld) [#/Vol] 11.5 10*3/uL High 1.8 - 7.5 10*3/uL [facility] Neutrophils/100 WBC (Bld) 69.8 % 38.0 - 82.0 % [facility] Nucleated RBC/100 WBC (Bld) [Ratio] 0 % [facility] Platelet mean volume (Bld) [Entitic vol] 8.7 fL Low 9.0 - 12.7 fL [facility] Comment on above: MPV is a calculated measurement using platelet volume ratio Platelets (Bld) [#/Vol] 517 10*3/uL High 140 - 440 10*3/uL [facility] RBC (Bld) [#/Vol] 2.82 10*6/uL Low 4.40 - 5.9 0 10*6/uL [facility] WBC (Bld) [#/Vol] 16.5 10*3/uL High 3.6 - 10.7 10*3/uL [facility] Moderate Anisocytosi s Slight Hypochromia [facility] CBC WITH AUTO DIFFERENTIALon 06-17-2025 Basophils (Bld) [#/Vol] 0.1 10*3/uL Normal 0.0-0.2 [facility] Comment on above: Performed By: #### L [id number] ####Commissioner Conservation Of Resources: ANAHY AVILA ([id number])[facility] [place] ([facility])[address] [place] [address] [place] Basophils/100 WBC (Bld) 0.7 % Normal 0.0-2.0 [facility] Comment on above: Performed By: #### L [id number] ####Commissioner Conservation Of Resources: ANAHY AVILA ([id number])[facility] [place] ([facility])[address] [place] [address] [place] Eosinophils (Bld) [#/Vol] 0.4 10*3/uL Normal 0.0-0.5 [facility] Comment on above: Performed By: #### L [id number] ####Commissioner Conservation Of Resources: ANAHY AVILA ([id number])[facility] [place] ([facility])[address] [place] [address] [place] Eosinophils/100 WBC (Bld) 2.2 % Normal 0.0-6.0 [facility] Comment on above: Performed By: #### L [id number] ####Commissioner Conservation Of Resources: ANAHY AVILA ([id number])[facility] ([facility])[address] [place] [address] Erythrocyte distribution width (RBC) [Ratio] 17.2 % High 11.5-15.0 [facility] Comment on above: Performed By: #### L [id number] ####Commissioner Conservation Of Resources: ANAHY AVILA ([id number])LYNETTE MONTOYA [place] ([facility])[address] [place] [address] Hematocrit (Bld) [Volume fraction] 25.7 % Low 40.0-52.0 [facility] Comment on above: Performed By: #### L [id number] ####Commissioner Conservation Of Resources: ANAHY AVILA ([id number])[facility] ([facility])[address] [place] [address] Hemoglobin (Bld) [Mass/Vol] 8.2 g/dL Low 13.0-18.0 [facility] Comment on above: Performed By: #### L [id number] ####Commissioner Conservation Of Resources: ANAHY AVILA ([id number])[facility] [place] ([facility])[address] [place] [address] IMMATURE GRANS % 1.0 % Normal 0.0-2.0 [facility] Comment on above: Performed By: #### L [id number] ####Commissioner Conservation Of Resources: ANAHY AVILA ([id number])LYNETTE MONTOYA [place] ([facility])[address] [place] [address] IMMATURE GRANS ABSOLUTE 0.2 10*3/uL High <0.1 [facility] Comment on above: Result Comment: ORDE R COMMENTS:Moderate AnisocytosisSlight Hypochromia Performed By: #### L [id number] ####Commissioner Conservation Of Resources: ANAHY AVILA ([id number])[facility] [place] ([facility])[address] [place] [address] Lymphocytes (Bld) [#/Vol] 2.9 10*3/uL Normal 1.0-4.3 [facility] Comment on above: Performed By: #### L [id number] ####Commissioner Conservation Of Resources: ANAHY AVILA ([id number])LYNETTE [facility]TOYA [place] ([facility])[address] [place] [address] [place] Lymphocytes/100 WBC (Bld) 17.2 % Normal 15.0-45.0 [facility] Comment on above: Performed By: #### L [id number] ####Commissioner Conservation Of Resources: ANAHY AVILA ([id number])[facility] [place] ([facility])[address] [place] [address] MCH (RBC) [Entitic mass] 29.1 pg Normal 26.0-34.0 [facility] Comment on above: Performed By: #### L [id number] ####Commissioner Conservation Of Resources: ANAHY AVILA ([id number])[facility] [place] ([facility])[address] [place] [address] MCHC 31.9 % Normal 30.5-36.0 [facility] Comment on above: Performed By: #### L [id number] ####Commissioner Conservation Of Resources: ANAHY AVILA ([id number])[facility] [place] (SWRL[facility])[address] [place] [address] [place] MCV (RBC) [Entitic vol] 91.1 fL Normal 77.0-99.0 [facility] Comment on above: Performed By: #### L [id number] ####Commissioner Conservation Of Resources: ANAHY AVILA ([id number])[facility] [place] ([facility])[address] [place] [address] [place] Monocytes (Bld) [#/Vol] 1.5 10*3/uL High 0.0-0.9 [facility] Comment on above: Performed By: #### L [id number] ####Commissioner Conservation Of Resources: ANAHY AVILA ([id number])LYNETTE MONTOYA [place] (SWRL[facility])[address] [place] [address] [place] Monocytes/100 WBC (Bld) 9.1 % Normal 5.0-13.0 S [facility] Comment on above: Performed By: #### L [id number] ####Commissioner Conservation Of Resources: ANAHY AVILA ([id number])LYNETTE MONTOYA [place] ([facility]RL[facility])[address] [place] [address] NEUTROPHILS ABSOLUTE 11.5 10*3/uL High 1.8-7.5 [facility] Comment on above: Performed By: #### L [id number] ####Commissioner Conservation Of Resources: ANAHY AVILA ([id number])[facility] [place] ([facility]RL[facility])[address] [place] [address] Neutrophils/100 WBC (Bld) 69.8 % Normal 38.0-82.0 [facility] Comment on above: Performed By: #### L [id number] ####Commissioner Conservation Of Resources: ANAHY AVILA ([id number])[facility] [place] ([facility]RL[facility])[address] [place] [address] NRBC 0.0 /100 WBCs Normal 0.0-2.0 [facility] Comment on above: Performed By: #### L [id number] ####Commissioner Conservation Of Resources: ANAHY AVILA ([id number])[facility] [place] (SWRL[facility])[address] [place] [address] Platelet mean volume (Bld) [Entitic vol] 8.7 fL Low 9.0-12.7 [facility] Comment on above: Result Comment: MPV is a calculated measurement using platelet volume ratio Performed By: #### L [id number] ####Commissioner Conservation Of Resources: ANAHY AVILA ([id number])[facility] [place] (SWRL[facility])[address] [place] [address] Platelets (Bld) [#/Vol] 517 10*3/uL High 140-440 [facility] Comment on above: Performed By: #### L [id number] ####Commissioner Conservation Of Resources: ANAHY AVILA ([id number])[facility] [place] ([facility]RL[facility])[address] [place] [address] RBC (Bld) [#/Vol] 2.82 10*6/uL Low 4.40-5.90 [facility] Comment on above: Performed By: #### L [id number] ####Commissioner Conservation Of Resources: ANAHY AVILA ([id number])[facility] [place] (SWRLAB)[address] WBC (Bld) [#/Vol] 16.5 10*3/uL High 3.6-10.7 [facility] Comment on above: Performed By: #### L [id number] ####Commissioner Conservation Of Resources: ANAHY AVILA ([id number])[facility] [place] (SWRLAB)[address] Progress Noteon 06-17-2025 Progress Note Normal [facility] Progress Note Normal [facility] Progress Noteon 06-02-2025 Progress Note Normal [facility] Progress Noteon 05-19-2025 Progress Note Normal [facility] Progress Noteon 05-11-2025 Progress Note Normal [facility] Progress Noteon 05-06-2025 Progress Note Normal [facility] Progress Noteon 05-04-2025 Progress Note Normal [facility] Progress Noteon 05-03-2025 Progress Note Normal [facility] Progress Note CT abdomen with mura l thickening involving the cecum and terminal ileum concern for neoplasm versus inflammation. Seen by GI with plan for EGD and colonoscopy once stable. -GI follow-up Normal [facility] Progress Note Noted to have irregular heart rhythm during hospitalization and multiple EKGs show sinus rhythm with frequent PACs. -Continue Toprol 25 mg p.o. daily Normal [facility] Progress Note Normal [facility] Progress Note Creatinine 1.46 on admission. Peak creatinine 1.78. Most recent creatinine 1.8 per labs 04/26/2025 - Continue to monitor - may have to accept a higher creatinine to keep him out of HF Normal [facility] Progress Note Bedside thoracentesi s 04/09/2025 with 1 L removed from the left and 600 mL removed from the right. Repeat left thoracentesis 04/14/2025 with 600 mL removed. - continue to monitor, appears euvolemic today Normal 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 NO angina. - no ASA 2/2 anemia - continue Toprol 25 mg po daily - continue atorvastatin 20 mg po daily - not a candidate or invasive workup due to anemia, advanced age and frailty Normal [facility] Progress Note Normal [facility] Progress Noteon 04-27-2025 Progress Note Normal [facility] Progress Noteon 04-20-2025 Progress Note Normal [facility] Progress Noteon 04-19-2025 Progress Note Normal [facility] [id number] 04-18-2025 [id number] Normal [facility] [id number] 04-17-2025 [id number] Normal [facility] [id number] Mcfp/SNF - [facility] Member [address] [place] [address] [phone] Patient/Family Choice Normal [facility] [id number] Normal [facility] CBC W Auto Differential pane l (Bld)on 04-17-2025 Erythrocyte distribution width (RBC) [Ratio] 25.7 % High 11.5 - 15.0 % [facility] Hematocrit (Bld) [Volume fraction] 27.9 % Low 40.0 - 52.0 % [facility] Hemoglobin (Bld) [Mass/Vol] 7.9 g/dL Low 13.0 - 18.0 g/dL [facility] MCH (RBC) [Entitic mass] 23.8 pg Low 26. 0 - 34.0 pg [facility] MCHC (RBC) [Mass/Vol] 28.3 % Low 30.5 - 36.0 % [facility] MCV (RBC) [Entitic vol] 84 fL 77.0 - 99.0 fL [facility] Platelet mean volume (Bld) [Entitic vol] 9 fL 9.0 - 12.7 fL [facility] Platelets (Bld) [#/Vol] 419 10*3/uL 140 - 440 10*3/uL [facility] RBC (Bld) [#/Vol] 3.32 10*6/uL Low 4.40 - 5.9 0 10*6/uL [facility] WBC (Bld) [#/Vol] 12 10*3/uL High 3.6 - 10.7 10*3/uL [facility] CBC WITH AUTO DIFFERENTIALon 04-17-2025 Erythrocyte distribution width (RBC) [Ratio] 25.7 % High 11.5-15.0 [facility] Comment on above: Performed By: #### L [id number], [id number] ####Commissioner Conservation Of Resources: UNA ARCE ([id number])[facility] (SBHLAB)[address] Hematocrit (Bld) [Volume fraction] 27.9 % Low 40.0-52.0 [facility] Comment on above: Performed By: #### L [id number], [id number] ####Commissioner Conservation Of Resources: UNA ARCE ([phone])[facility] (SBHLAB)[address] [place] [address] Hemoglobin (Bld) [Mass/Vol] 7.9 g/dL Low 13.0-18.0 [facility] Comment on above: Performed By: #### Gilbert [id number], [id number] ####Commissioner Conservation Of Resources: UNA ARCE ([id number])[facility] (SBHLAB)[address] [place] [address] MCH (RBC) [Entitic mass] 23.8 pg Low 26.0-34.0 [facility] Comment on above: Performed By: #### L [id number], [id number] ####Commissioner Conservation Of Resources: UNA ARCE ([id number])[facility] (SBHLAB)[address] MCHC 28.3 % Low 30.5-36.0 [facility] Comment on above: Performed By: #### L [id number], [id number] ####Commissioner Conservation Of Resources: UNA ARCE ([id number])[facility] (SBHLAB)[address] MCV (RBC) [Entitic vol] 84.0 fL Normal 77.0-99.0 [facility] Comment on above: Performed By: #### L [id number], [id number] ####Commissioner Conservation Of Resources: UNA ARCE ([id number])[facility] ESCOTO (SBHLAB)[address] Platelet mean volume (Bld) [Entitic vol] 9.0 fL Normal 9.0-12.7 [facility] Comment on above: Performed By: #### L [id number], [id number] ####Commissioner Conservation Of Resources: UNA ARCE ([id number])[facility] (SBHLAB)[address] Platelets (Bld) [#/Vol] 419 10*3/uL Normal 140-440 [facility] Comment on above: Performed By: #### L [id number], [id number] ####Commissioner Conservation Of Resources: UNA ARCE ([phone])[facility] (SBHLAB)[address] [place] [address] RBC (Bld) [#/Vol] 3.32 10*6/uL Low 4.40-5.90 [facility] Comment on above: Performed By: #### L [id number], [id number] ####Commissioner Conservation Of Resources: UNA ARCE ([id number])[facility] [place] (SBHLAB)[address] [place] [address] WBC (Bld) [#/Vol] 12.0 10*3/uL High 3.6-10.7 [facility] Comment on above: Performed By: #### L [id number], [id number] ####Commissioner Conservation Of Resources: UNA ARCE ([phone])[facility] (SBHLAB)[address] COMPREHENSIVE METABOLIC PANE Anant 04-17-2025 Albumin [Mass/Vol] 2.1 g/dL Low 3.4-4.8 [facility] Comment on above: Performed By: #### L AB103, LAB17 ####Commissioner Conservation Of Resources: UNA ARCE ([phone])[facility] (SBHLAB)[address] ALP [Catalytic activity/Vol] 49 U/L Normal 40-150 [facility] Comment on above: Performed By: #### L AB103, LAB17 ####Commissioner Conservation Of Resources: UNA ARCE ([id number])[facility] [place] (SBHLAB)[address] [place] [address] [place] ALT [Catalytic activity/Vol] U/L Normal <40 [facility] Comment on above: Performed By: #### L AB103, LAB17 ####Commissioner Conservation Of Resources: UNA ARCE ([id number])[facility] [place] (SBHLAB)[address] Anion gap [Moles/Vol] 10 mmol/L Normal 3-13 [facility] Comment on above: Performed By: #### L AB103, LAB17 ####Commissioner Conservation Of Resources: UNA ARCE ([id number])[facility] [place] (SBHLAB)[address] AST [Catalytic activity/Vol] 22 U/L Normal <34 [facility] Comment on above: Performed By: #### L AB103, LAB17 ####Commissioner Conservation Of Resources: UNA ARCE ([phone])[facility] [place] (SBHLAB)[address] [place] [address] [place] Bilirubin [Mass/Vol] 0.5 mg/dL Normal <1.2 [facility] Comment on above: Performed By: #### L AB103, LAB17 ####Commissioner Conservation Of Resources: UNA ARCE ([phone])[facility] [place] (SBHLAB)[address] [place] [address] [place] Calcium [Mass/Vol] 8.4 mg/dL Low 8.8-10.0 [facility] Comment on above: Performed By: #### L AB103, LAB17 ####Commissioner Conservation Of Resources: UNA ARCE ([phone])[facility] BASHIRN (SBHLAB)[address] Chloride [Moles/Vol] 88 mmol/L Low 98-107 [facility] Comment on above: Performed By: #### L AB103, LAB17 ####Commissioner Conservation Of Resources: UNA ARCE ([id number])[facility]ITAL[facility] (SBHLAB)[address] CO2 [Moles/Vol] 40 mmol/L High 23-31 [facility] Comment on above: Performed By: #### L AB103, LAB17 ####Commissioner Conservation Of Resources: UNA ARCE ([id number])[facility] (HLAB)[address] Creatinine [Mass/Vol] 1.67 mg/dL High 0.72-1.25 [facility] Comment on above: Performed By: #### L DERICK, LAB17 ####Commissioner Conservation Of Resources: UNA ARCE ([id number])[facility] (HLAB)[address] GLOMERULAR FILTRATION RATE ML/MIN/1.73 SQ M.PREDICTED 38.9 mL/min/1.73m*2 Low >60.0 [facility] Comment on above: Result Comment: Calc ulation based on the Chronic Kidney Disease Epidemiology Collaboration (CKD-EPI) equation refit without adjustment for race Performed By: #### L 103, LAB17 ####Commissioner Conservation Of Resources: UNA ARCE ([phone])[facility] (SBHLAB)[address] [place] [address] [place] Glucose [Mass/Vol] 94 mg/dL Normal 82-115 [facility] Comment on above: Performed By: #### L AB103, LAB17 ####Commissioner Conservation Of Resources: UNA ARCE ([phone])[facility] (HLAB)[address] Potassium [Moles/Vol] 3.6 mmol/L Normal 3.5-5.1 [facility] Comment on above: Result Comment: Plas ma potassium values may be up to 0.5 mmol/L lower than serum values. Performed By: #### L AB103, LAB17 ####Commissioner Conservation Of Resources: UNA ARCE ([id number])[facility] [place] (SBHLAB)[address] Protein [Mass/Vol] 5.8 g/dL Low 6.4-8.3 [facility] Comment on above: Performed By: #### L AB103, LAB17 ####Commissioner Conservation Of Resources: UNA ARCE ([phone])[facility] [place] (SBHLAB)[address] Sodium [Moles/Vol] 138 mmol/L Normal 136-145 [facility] Comment on above: Performed By: #### L AB103, LAB17 ####Commissioner Conservation Of Resources: UNA ARCE ([id number])[facility] (SBHLAB)[address] Urea nitrogen [Mass/Vol] 46 mg/dL High 9-23 [facility] Comment on above: Performed By: #### L AB103, LAB17 ####Commissioner Conservation Of Resources: UNA ARCE ([id number])[facility] (SBHLAB)[address] Comprehensive metabolic 1998 panelon 04-17-2025 Albumin [Mass/Vol] 2.1 g/dL Low 3.4 - 4.8 g/dL [facility] ALP [Catalytic activity/Vol] 49 U/L 40 - 150 U/L [facility] ALT [Catalytic activity/Vol] U/L NINF - 40 U/L [facility] Anion gap [Moles/Vol] 10 mmol/L 3 - 13 mmol/L [facility] AST [Catalytic activity/Vol] 22 U/L NINF - 34 U/L [facility] Bilirubin [Mass/Vol] 0.5 mg/dL NINF - 1.2 mg/dL [facility] Calcium [Mass/Vol] 8.4 mg/dL Low 8.8 - 10. 0 mg/dL [facility] Chloride [Moles/Vol] 88 mmol/L Low 98 - 10 7 mmol/L [facility] CO2 [Moles/Vol] 40 mmol/L High 23 - 31 mmol/L [facility] Creatinine [Mass/Vol] 1.67 mg/dL High 0.72 - 1.25 mg/dL [facility] GFR/1.73 sq M.predicted (S/P/Bld) [Vol rate/Area] 38.9 mL/min Low - PINF [facility] Glucose [Mass/Vol] 94 mg/dL 82 - 115 mg/dL [facility] Interpretation and review of laboratory results Abnormal [facility] Potassium [Moles/Vol] 3.6 mmol/L 3.5 - 5.1 mmol/L [facility] Protein [Mass/Vol] 5.8 g/dL Low 6.4 - 8.3 g/dL [facility] Sodium [Moles/Vol] 138 mmol/L 136 - 145 mmol/L [facility] Urea nitrogen [Mass/Vol] 46 mg/dL High 9 - 23 mg/d L [facility] Laboratory - Chemistry and C hemistry - challengeon 04-17-2025 Magnesium [Mass/Vol] 1.8 mg/dL 1.6 - 2 .6 mg/dL [facility] - Hematology and Cell countson 04-17-2025 Anisocytosis Ql (Bld) Slight Abnormal (none) [facility] Basophils (Bld) [#/Vol] 0.4 10*3/uL High 0.0 - 0.2 10*3/uL [facility] Basophils/100 WBC (Bld) 3 % High 0 - 2 % [facility] Eosinophils (Bld) [#/Vol] 0.2 10*3/uL 0.0 - 0.5 10*3/uL [facility] Eosinophils/100 WBC (Bld) 2 % 0 - 6 % [facility] Hypochromia Ql (Bld) Moderate Abnormal (none) [facility] Lymphocytes (Bld) [#/Vol] 1.3 10*3/uL 1.0 - 4.3 10*3/uL [facility] Lymphocytes/100 WBC (Bld) 11 % Low 15 - 45 % [facility] Monocytes (Bld) [#/Vol] 0.8 10*3/uL 0.0 - 0.9 10*3/uL [facility] Monocytes/100 WBC (Bld) 7 % 5 - 13 % [facility] Neutrophils (Bld) [#/Vol] 9.2 10*3/uL High 1.8 - 7.5 10*3/uL [facility] Poikilocytosis LM Ql (Bld) Moderate Abnormal (none) [facility] Polychromasia LM Ql (Bld) Slight Abnormal (none) [facility] RBC morphology finding Nom (Bld) abnormal [facility] Segmented neutrophils/100 WBC (Bld) 77 % 38 - 82 % [facility] Stomatocytes LM Ql (Bld) Moderate Abnormal (none) [facility] Target cells LM Ql (Bld) Slight Abnormal (none) [facility] MAGNESIUMon 04-17-2025 Magnesium [Mass/Vol] 1.8 mg/dL Normal 1.6-2.6 [facility] Comment on above: Result Comment: YARELI [place] COMMENTS:Higher values can be expected in females during menses. Performed By: #### L AB103, LAB17 ####Commissioner Conservation Of Resources: UNA ARCE ([id number])[facility]ITAL[facility] (SBHLAB)[address] MANUAL DIFFERENTIAL (CELLAVI BANDAR)on 04-17-2025 ANISOCYTOSIS PRESENCE IN BLOOD BY LIGHT MICROSCOPY Slight Abnormal (none) [facility] Comment on above: Performed By: #### Gilbert [id number], [id number] ####Commissioner Conservation Of Resources: UNA ARCE ([phone])[facility]ITAL[facility] (SBHLAB)[address] [place] [address] BAND NEUTROPHILS TOTAL PER COUNTED LEUKOCYTES BY MANUAL COUNT Normal [facility] Comment on above: Performed By: #### L [id number], [id number] ####Commissioner Conservation Of Resources: UNA ARCE ([id number])[facility] (SBHLAB)[address] BASOPHILS (10*3/UL) IN BLOOD-CELLAVISION 0.4 10*3/uL High 0.0-0.2 [facility] Comment on above: Performed By: #### L [id number], [id number] ####Commissioner Conservation Of Resources: UNA ARCE ([id number])[facility] (SBHLAB)[address] [place] [address] [place] BASOPHILS TOTAL PER COUNTED LEUKOCYTES BY MANUAL COUNT 3 Normal [facility] Comment on above: Performed By: #### L [id number], [id number] ####Commissioner Conservation Of Resources: UNA STAUFFERMLEANIE ([id number])[facility] (SBHLAB)[address] [place] [address] [place] BASOPHILS/100 LEUKOCYTES IN BLOOD-CELLAVISION 3 % High 0-2 [facility] Comment on above: Performed By: #### L [id number], [id number] ####Commissioner Conservation Of Resources: UNA ARCE ([id number])[facility] [place] (SBHLAB)[address] [place] [address] [place] BLASTS TOTAL PER COUNTED LEUKOCYTES BY MANUAL COUNT Normal [facility] Comment on above: Performed By: #### L [id number], [id number] ####Commissioner Conservation Of Resources: UNA ARCE ([id number])[facility] [place] (SBHLAB)[address] [place] [address] [place] EOSINOPHILS (10*3/UL) IN BLOOD-CELLAVISION 0.2 10*3/uL Normal 0.0-0.5 [facility] Comment on above: Performed By: #### L SV1185, [id number] ####Commissioner Conservation Of Resources: UNA ARCE ([phone])[facility] [place] (SBHLAB)[address] [place] [address] [place] EOSINOPHILS TOTAL PER COUNTED LEUKOCYTES BY MANUAL COUNT 2 High 0-1 [facility] Comment on above: Performed By: #### L SA2956, [id number] ####Commissioner Conservation Of Resources: UNA ARCE ([phone])[facility] [place] (SBHLAB)[address] [place] [address] [place] EOSINOPHILS/100 LEUKOCYTES IN BLOOD-CELLAVISION 2 % Normal 0-6 [facility] Comment on above: Performed By: #### L [id number], [id number] ####Commissioner Conservation Of Resources: UNA ARCE ([id number])[facility] [place] (SBHLAB)[address] HYPOCHROMIA (PRESENCE) IN BLOOD BY LIGHT MICROSCOPY Moderate Abnormal (none) [facility] Comment on above: Performed By: #### L [id number], [id number] ####Commissioner Conservation Of Resources: UNA ARCE ([phone])[facility] [place] (SBHLAB)[address] [place] [address] [place] LYMPHOCYTES (10*3/UL) IN BLOOD-CELLAVISION 1.3 10*3/uL Normal 1.0-4.3 [facility] Comment on above: Performed By: #### L [id number], [id number] ####Commissioner Conservation Of Resources: UNA ARCE ([id number])[facility] [place] (SBHLAB)[address] LYMPHOCYTES TOTAL PER COUNTED LEUKOCYTES BY MANUAL COUNT 11 Normal [facility] Comment on above: Performed By: #### L [id number], [id number] ####Commissioner Conservation Of Resources: UNA ARCE ([id number])[facility] (SBHLAB)[address] [place] [address] [place] LYMPHOCYTES/100 LEUKOCYTES IN BLOOD-CELLAVISION 11 % Low 15-45 [facility] Comment on above: Performed By: #### L [id number], [id number] ####Commissioner Conservation Of Resources: UNA ARCE ([phone])[facility] (SBHLAB)[address] [place] [address] [place] METAMYELOCYTES TOTAL PER COUNTED LEUKOCYTES BY MANUAL COUNT Normal [facility] Comment on above: Performed By: #### L [id number], [id number] ####Commissioner Conservation Of Resources: UNA ARCE ([id number])[facility] [place] (SB[facility]AB)[address] [place] [address] [place] MONOCYTES (10*3/UL) IN BLOOD-CELLAVISION 0.8 10*3/uL Normal 0.0-0.9 [facility] Comment on above: Performed By: #### L [id number], [id number] ####Commissioner Conservation Of Resources: UNA ARCE ([id number])[facility] (SBHLAB)[address] [place] [address] [place] MONOCYTES TOTAL PER COUNTED LEUKOCYTES BY MANUAL COUNT 7 Normal [facility] Comment on above: Performed By: #### L [id number], [id number] ####Commissioner Conservation Of Resources: UNA ARCE ([id number])[facility] (SBHLAB)[address] [place] [address] [place] MONOCYTES/100 LEUKOCYTES IN BLOOD-LUCIANA 7 % Normal -13 [facility] Comment on above: Performed By: #### L [id number], [id number] ####Commissioner Conservation Of Resources: UNA ARCE ([phone])[facility] [place] (SBHLAB)[address] [place] [address] [place] MYELOCYTES COUNTED BY MANUAL COUNT Normal [facility] Comment on above: Performed By: #### L LA2512, [id number] ####Commissioner Conservation Of Resources: UNA ARCE ([id number])[facility] (SBHLAB)[address] [place] [address] [place] NEUTROPHILS TOTAL PER COUNTED LEUKOCYTES BY MANUAL COUNT 77 Normal [facility] Comment on above: Performed By: #### L [id number], [id number] ####Commissioner Conservation Of Resources: UNA ARCE ([id number])[facility] (SBHLAB)[address] [place] [address] [place] POIKILOCYTOSIS (PRESENCE) IN BLOOD BY LIGHT MICROSCOPY Moderate Abnormal (none) [facility] Comment on above: Performed By: #### L [id number], [id number] ####Commissioner Conservation Of Resources: UNA ARCE ([phone])[facility] (SBHLAB)[address] [place] [address] [place] POLYCHROMASIA IN BLOOD BY LIGHT MICROSCOPY Slight Abnormal (none) [facility] Comment on above: Performed By: #### L [id number], [id number] ####Commissioner Conservation Of Resources: UNA ARCE ([id number])[facility] (SBHLAB)[address] [place] [address] [place] PROMYELOCYTES TOTAL PER COUNTED LEUKOCYTES BY MANUAL COUNT Normal [facility] Comment on above: Performed By: #### L [id number], [id number] ####Commissioner Conservation Of Resources: UNA ARCE ([phone])[facility] (SBHLAB)[address] RBC MORPHOLOGY IN BLOOD abnormal Normal S [facility] Comment on above: Performed By: #### L [id number], [id number] ####Commissioner Conservation Of Resources: UNA ARCE ([id number])[facility] [place] (SB[facility])[address] SEGMENTED NEUTROPHILS (10*3/UL) IN BLOOD-CELLAVISION 9.2 10*3/uL High 1.8-7.5 [facility] Comment on above: Performed By: #### L [id number], [id number] ####Commissioner Conservation Of Resources: UNA ARCE ([phone])[facility] [place] (SBHLAB)[address] [place] [address] [place] SEGMENTED NEUTROPHILS/100 LEUKOCYTES-CE 77 % Normal 38-82 [facility] Comment on above: Performed By: #### L [id number], [id number] ####Commissioner Conservation Of Resources: UNA ARCE ([phone])[facility] [place] (SBHLAB)[address] [place] [address] [place] STOMATOCYTES IN BLOOD BY LIGHT MICROSCOPY Moderate Abnormal (none) [facility] Comment on above: Performed By: #### L [id number], [id number] ####Commissioner Conservation Of Resources: UNA ARCE ([phone])[facility] [place] (SBHLAB)[address] [place] [address] [place] TARGET CELLS IN BLOOD BY LIGHT MICROSCOPY Slight Abnormal (none) [facility] Comment on above: Performed By: #### L [id number], [id number] ####Commissioner Conservation Of Resources: UNA ARCE ([id number])[facility] [place] (SBHLAB)[address] [place] [address] [place] UNCLASSIFIED CELLS TOTAL PER COUNTED LEUKOCYTES BY MANUAL COUNT Normal [facility] Comment on above: Performed By: #### L [id number], [id number] ####Commissioner Conservation Of Resources: UNA ARCE ([phone])[facility] (SBHLAB)[address] VARIANT LYMPHOCYTES TOTAL PER COUNTED LEUKOCYTES BY MANUAL COUNT Normal [facility] Comment on above: Performed By: #### L [id number], [id number] ####Commissioner Conservation Of Resources: UNA ARCE ([phone])[facility] (SBHLAB)[address] Magnesium [Mass/Vol]on 04-17 Interpretation and review of laboratory results Normal [facility] No Panel Informationon 04-17 [facility] Basophils Manual 3 [facility] Eosin[facility] Manual 2 High 0 - 1 [facility] Interpretation and review of laboratory results Abnormal [facility] Lymphocytes Manual 11 [facility] Monocytes Manual 7 [facility] Neutrophils Manual 77 [facility] Nursing Noteon 04-17-2025 Nursing Note Report given to Flor MYERS at [facility]. All belongings sent with patient, including eyewear. HL removed, site WNL. Normal [facility] Progress Noteon 04-17-2025 Progress Note Normal [facility] Progress Note Normal [facility] [id number] 04-16-2025 [id number] Tasked weekend TTC t o follow for possible dc over the weekend. hse manager to follow and assist as needed. Normal [facility] [id number] Complete in HEN S for [facility] per TCC request [facility] [phone] Normal [facility] CBC W Auto Differential pane l (Bld)Ordered By: Dayan Hernandez on 04-16-2025 Erythrocyte distribution width (RBC) [Ratio] 25.7 % High 11.5 - 15.0 % [facility] Hematocrit (Bld) [Volume fraction] 28.4 % Low 40.0 - 52.0 % [facility] Hemoglobin (Bld) [Mass/Vol] 8 g/dL Low 13.0 - 18.0 g/dL [facility] Interpretation and review of laboratory results Abnormal [facility] MCH (RBC) [Entitic mass] 23.7 pg Low 26. 0 - 34.0 pg [facility] MCHC (RBC) [Mass/Vol] 28.2 % Low 30.5 - 36.0 % [facility] MCV (RBC) [Entitic vol] 84.3 fL 77.0 - 99.0 fL [facility] Platelet mean volume (Bld) [Entitic vol] 9.1 fL 9.0 - 12.7 fL [facility] Platelets (Bld) [#/Vol] 405 10*3/uL 140 - 440 10*3/uL [facility] RBC (Bld) [#/Vol] 3.37 10*6/uL Low 4.40 - 5.9 0 10*6/uL [facility] WBC (Bld) [#/Vol] 13.1 10*3/uL High 3.6 - 10.7 10*3/uL [facility] CBC WITH AUTO DIFFERENTIALon 04-16-2025 Erythrocyte distribution width (RBC) [Ratio] 25.7 % High 11.5-15.0 [facility] Comment on above: Performed By: #### L [id number], [id number] ####Commissioner Conservation Of Resources: UNA [phone])[facility] ([facility])[address] [place] [address] Hematocrit (Bld) [Volume fraction] 28.4 % Low 40.0-52.0 [facility] Comment on above: Performed By: #### L [id number], [id number] ####Commissioner Conservation Of Resources: UNA ARCE ([phone])[facility] ([facility])[address] [place] [address] Hemoglobin (Bld) [Mass/Vol] 8.0 g/dL Low 13.0-18.0 [facility] Comment on above: Performed By: #### L [id number], [id number] ####Commissioner Conservation Of Resources: UNA ARCE ([phone])[facility] ([facility])[address] MCH (RBC) [Entitic mass] 23.7 pg Low 26.0-34.0 [facility] Comment on above: Performed By: #### L [id number], [id number] ####Commissioner Conservation Of Resources: UNA ARCE ([phone])[facility] ([facility])[address] MCHC 28.2 % Low 30.5-36.0 [facility] Comment on above: Performed By: #### L [id number], [id number] ####Commissioner Conservation Of Resources: UNA STAUFFERMELANIE ([phone])[facility] ([facility])[address] [place] [address] MCV (RBC) [Entitic vol] 84.3 fL Normal 77.0-99.0 S [facility] Comment on above: Performed By: #### L [id number], [id number] ####Commissioner Conservation Of Resources: UNA ARCE ([phone])[facility] ([facility])[address] Platelet mean volume (Bld) [Entitic vol] 9.1 fL Normal 9.0-12.7 [facility] Comment on above: Performed By: #### L [id number], [id number] ####Commissioner Conservation Of Resources: UNA ARCE ([phone])[facility] ([facility])[address] Platelets (Bld) [#/Vol] 405 10*3/uL Normal 140-440 [facility] Comment on above: Performed By: #### L [id number], [id number] ####Commissioner Conservation Of Resources: UNA STAUFFERMELANIE ([phone])[facility] ([facility])[address] RBC (Bld) [#/Vol] 3.37 10*6/uL Low 4.40-5.90 [facility] Comment on above: Performed By: #### L [id number], [id number] ####Commissioner Conservation Of Resources: UNA ARCE ([phone])[facility] [place] ([facility])[address] WBC (Bld) [#/Vol] 13.1 10*3/uL High 3.6-10.7 [facility] Comment on above: Performed By: #### L [id number], [id number] ####Commissioner Conservation Of Resources: UNA ARCE ([id number])[facility] ([facility])[address] COMPREHENSIVE METABOLIC PANE Anant 04-16-2025 Albumin [Mass/Vol] 2.2 g/dL Low 3.4-4.8 [facility] Comment on above: Performed By: #### L AB103, LAB17 ####Commissioner Conservation Of Resources: UNA ARCE ([id number])[facility] [place] ([facility])[address] ALP [Catalytic activity/Vol] 55 U/L Normal 40-150 [facility] Comment on above: Performed By: #### L AB103, LAB17 ####Commissioner Conservation Of Resources: UNA ARCE ([phone])[facility] [place] ([facility])[address] ALT [Catalytic activity/Vol] 6 U/L Normal <40 [facility] Comment on above: Performed By: #### L AB103, LAB17 ####Commissioner Conservation Of Resources: UNA ARCE ([phone])[facility] [place] ([facility])[address] Anion gap [Moles/Vol] 10 mmol/L Normal 3-13 [facility] Comment on above: Performed By: #### L AB103, LAB17 ####Commissioner Conservation Of Resources: UNA ARCE ([id number])[facility] ([facility])[address] [place] [address] [place] AST [Catalytic activity/Vol] 23 U/L Normal <34 [facility] Comment on above: Performed By: #### L AB103, LAB17 ####Commissioner Conservation Of Resources: UNA ARCE ([phone])[facility] [place] ([facility])[address] Bilirubin [Mass/Vol] 0.5 mg/dL Normal <1.2 [facility] Comment on above: Performed By: #### L AB103, LAB17 ####Commissioner Conservation Of Resources: UNA ARCE ([phone])[facility] [place] ([facility])[address] Calcium [Mass/Vol] 8.2 mg/dL Low 8.8-10.0 [facility] Comment on above: Performed By: #### L AB103, LAB17 ####Commissioner Conservation Of Resources: UNA ARCE ([phone])[facility] [place] ([facility])[address] [place] [address] [place] Chloride [Moles/Vol] 87 mmol/L Low 98-107 [facility] Comment on above: Performed By: #### L AB103, LAB17 ####Commissioner Conservation Of Resources: UNA ARCE ([id number])[facility] [place] ([facility])[address] [place] [address] [place] CO2 [Moles/Vol] 43 mmol/L High 23-31 [facility] Comment on above: Performed By: #### L AB103, LAB17 ####Commissioner Conservation Of Resources: UNA ARCE ([phone])[facility] [place] ([facility])[address] [place] [address] [place] Creatinine [Mass/Vol] 1.81 mg/dL High 0.72-1.25 [facility] Comment on above: Performed By: #### L AB103, LAB17 ####Commissioner Conservation Of Resources: UNA ARCE ([phone])[facility] [place] ([facility])[address] [place] [address] [place] GLOMERULAR FILTRATION RATE ML/MIN/1.73 SQ M.PREDICTED 35.3 mL/min/1.73m*2 Low >60.0 [facility] Comment on above: Result Comment: Calc ulation based on the Chronic Kidney Disease Epidemiology Collaboration (CKD-EPI) equation refit without adjustment for race Performed By: #### L AB103, LAB17 ####Commissioner Conservation Of Resources: UNA ARCE ([id number])[facility] ([facility])[address] Glucose [Mass/Vol] 114 mg/dL Normal 82-115 [facility] Comment on above: Performed By: #### L AB103, LAB17 ####Commissioner Conservation Of Resources: UNA ARCE ([phone])[facility] ([facility])[address] Potassium [Moles/Vol] 3.6 mmol/L Normal 3.5-5.1 [facility] Comment on above: Result Comment: [facility] potassium values may be up to 0.5 mmol/L lower than serum values. Performed By: #### L AB103, LAB17 ####Commissioner Conservation Of Resources: UNA ARCE ([phone])[facility] ([facility])[address] Protein [Mass/Vol] 6.0 g/dL Low 6.4-8.3 [facility] Comment on above: Performed By: #### L AB103, LAB17 ####Commissioner Conservation Of Resources: UNA ARCE ([phone])[facility] ([facility])[address] [place] [address] [place] Sodium [Moles/Vol] 140 mmol/L Normal 136-145 [facility] Comment on above: Performed By: #### L AB103, LAB17 ####Commissioner Conservation Of Resources: UNA ARCE ([id number])[facility] ([facility])[address] Urea nitrogen [Mass/Vol] 46 mg/dL High 9-23 [facility] Comment on above: Performed By: #### L AB103, LAB17 ####Commissioner Conservation Of Resources: UNA ARCE ([phone])[facility] ([facility])[address] [place] [address] Comprehensive metabolic 1998 panelon 04-16-2025 Albumin [Mass/Vol] 2.2 g/dL Low 3.4 - 4.8 g/dL [facility] ALP [Catalytic activity/Vol] 55 U/L 40 - 150 U/L [facility] ALT [Catalytic activity/Vol] 6 U/L NINF - 40 U/L [facility] Anion gap [Moles/Vol] 10 mmol/L 3 - 13 mmol/L [facility] AST [Catalytic activity/Vol] 23 U/L NINF - 34 U/L [facility] Bilirubin [Mass/Vol] 0.5 mg/dL NINF - 1.2 mg/dL [facility] Calcium [Mass/Vol] 8.2 mg/dL Low 8.8 - 10. 0 mg/dL [facility] Chloride [Moles/Vol] 87 mmol/L Low 98 - 10 7 mmol/L [facility] CO2 [Moles/Vol] 43 mmol/L High 23 - 31 mmol/L [facility] Creatinine [Mass/Vol] 1.81 mg/dL High 0.72 - 1.25 mg/dL [facility] GFR/1.73 sq M.predicted (S/P/Bld) [Vol rate/Area] 35.3 mL/min Low - PINF [facility] Glucose [Mass/Vol] 114 mg/dL 82 - 115 mg/dL [facility] Interpretation and review of laboratory results Abnormal [facility] Potassium [Moles/Vol] 3.6 mmol/L 3.5 - 5.1 mmol/L [facility] Protein [Mass/Vol] 6 g/dL Low 6.4 - 8.3 g/dL [facility] Sodium [Moles/Vol] 140 mmol/L 136 - 145 mmol/L [facility] Urea nitrogen [Mass/Vol] 46 mg/dL High 9 - 23 mg/d L [facility] Laboratory - Chemistry and C hemistry - challengeon 04-16-2025 Magnesium [Mass/Vol] 1.8 mg/dL 1.6 - 2 .6 mg/dL [facility] Laboratory - Hematology and Cell countson 04-16-2025 Anisocytosis Ql (Bld) Moderate Abnormal (none) [facility] Basophils (Bld) [#/Vol] 0.1 10*3/uL 0.0 - 0.2 10*3/uL [facility] Basophils/100 WBC (Bld) 1 % 0 - 2 % S [facility] [place] cells LM Ql (Bld) Slight Abnormal (none) [facility] Eosinophils (Bld) [#/Vol] 0.5 10*3/uL 0.0 - 0.5 10*3/uL [facility] Eosinophils/100 WBC (Bld) 4 % 0 - 6 % [facility] Hypochromia Ql (Bld) Slight Abnormal (none) [facility] Lymphocytes (Bld) [#/Vol] 1.6 10*3/uL 1.0 - 4.3 10*3/uL [facility] Lymphocytes/100 WBC (Bld) 12 % Low 15 - 45 % [facility] Monocytes (Bld) [#/Vol] 0.9 10*3/uL 0.0 - 0.9 10*3/uL [facility] Monocytes/100 WBC (Bld) 7 % 5 - 13 % S [facility] Neutrophils (Bld) [#/Vol] 9.8 10*3/uL High 1.8 - 7.5 10*3/uL [facility] Poikilocytosis LM Ql (Bld) Slight Abnormal (none) [facility] RBC morphology finding Nom (Bld) abnormal [facility] Segmented neutrophils/100 WBC (Bld) 75 % 38 - 82 % [facility] Variant lymphocytes (Bld) [#/Vol] 0.3 10*3/uL High NINF - 0.0 10*3/uL [facility] Variant lymphocytes/100 WBC (Bld) 2 % High NINF - 0 % [facility] MAGNESIUMon 04-16-2025 Magnesium [Mass/Vol] 1.8 mg/dL Normal 1.6-2.6 [facility] Comment on above: Result Comment: YARELI [place] COMMENTS:Higher values can be expected in females during menses. Performed By: #### L AB103, LAB17 ####Commissioner Conservation Of Resources: UNA ARCE ([phone])[facility] ([facility])[address] [place] [address] MANUAL DIFFERENTIAL (CELLAVI BANDAR)on 04-16-2025 ANISOCYTOSIS PRESENCE IN BLOOD BY LIGHT MICROSCOPY Moderate Abnormal (none) [facility] Comment on above: Performed By: #### L [id number], [id number] ####Commissioner Conservation Of Resources: UNA ARCE ([id number])[facility] [place] ([facility])[address] [place] [address] [place] BAND NEUTROPHILS TOTAL PER COUNTED LEUKOCYTES BY MANUAL COUNT Normal [facility] Comment on above: Performed By: #### L [id number], [id number] ####Commissioner Conservation Of Resources: UNA STAUFFERMELANIE ([phone])[facility] [place] ([facility])[address] [place] [address] [place] BASOPHILS (10*3/UL) IN BLOOD-CELLAVISION 0.1 10*3/uL Normal 0.0-0.2 [facility] Comment on above: Performed By: #### L [id number], [id number] ####Commissioner Conservation Of Resources: UNA ARCE ([id number])[facility] [place] ([facility])[address] [place] [address] [place] BASOPHILS TOTAL PER COUNTED LEUKOCYTES BY MANUAL COUNT 1 Normal [facility] Comment on above: Performed By: #### L [id number], [id number] ####Commissioner Conservation Of Resources: UNA ARCE ([phone])[facility] [place] ([facility])[address] [place] [address] [place] BASOPHILS/100 LEUKOCYTES IN BLOOD-CELLAVISION 1 % Normal 0-2 [facility] Comment on above: Performed By: #### L [id number], [id number] ####Commissioner Conservation Of Resources: UNA ARCE ([phone])[facility] [place] ([facility])[address] [place] [address] [place] BLASTS TOTAL PER COUNTED LEUKOCYTES BY MANUAL COUNT Normal [facility] Comment on above: Performed By: #### L [id number], [id number] ####Commissioner Conservation Of Resources: UNA ARCE ([phone])[facility] [place] ([facility])[address] [place] [address] [place] MEENA CELLS PRESENCE IN BLOOD BY LIGHT MICROSCOPY Slight Abnormal (none) [facility] Comment on above: Performed By: #### L [id number], [id number] ####Commissioner Conservation Of Resources: UNA ARCE ([id number])[facility] [place] ([facility])[address] [place] [address] [place] EOSINOPHILS (10*3/UL) IN BLOOD-CELLAVISION 0.5 10*3/uL Normal 0.0-0.5 [facility] Comment on above: Performed By: #### L [id number], [id number] ####Commissioner Conservation Of Resources: UNA ARCE ([phone])[facility] [place] ([facility])[address] [place] [address] [place] EOSINOPHILS TOTAL PER COUNTED LEUKOCYTES BY MANUAL COUNT 4 High 0-1 [facility] Comment on above: Performed By: #### L [id number], [id number] ####Commissioner Conservation Of Resources: UNA ARCE ([phone])[facility] [place] ([facility])[address] [place] [address] [place] EOSINOPHILS/100 LEUKOCYTES IN BLOOD-CELLAVISION 4 % Normal 0-6 [facility] Comment on above: Performed By: #### L [id number], [id number] ####Commissioner Conservation Of Resources: UNA ARCE ([phone])[facility] [place] ([facility])[address] [place] [address] [place] HYPOCHROMIA (PRESENCE) IN BLOOD BY LIGHT MICROSCOPY Slight Abnormal (none) [facility] Comment on above: Performed By: #### L [id number], [id number] ####Commissioner Conservation Of Resources: UNA ARCE ([phone])[facility] [place] ([facility])[address] [place] [address] [place] LYMPHOCYTE VARIANT/100 LEUKOCYTES IN BLOOD- CELLAVISION 2 % High <=0 [facility] Comment on above: Performed By: #### L [id number], [id number] ####Commissioner Conservation Of Resources: UNA ARCE ([phone])[facility] [place] ([facility])[address] [place] [address] [place] LYMPHOCYTES (10*3/UL) IN BLOOD-CELLAVISION 1.6 10*3/uL Normal 1.0-4.3 [facility] Comment on above: Performed By: #### L [id number], [id number] ####Commissioner Conservation Of Resources: UNA ARCE ([phone])[facility] [place] ([facility])[address] LYMPHOCYTES TOTAL PER COUNTED LEUKOCYTES BY MANUAL COUNT 12 Normal [facility] Comment on above: Performed By: #### L [id number], [id number] ####Commissioner Conservation Of Resources: UNA MOHRCER ([id number])[facility] [place] ([facility])[address] [place] [address] [place] LYMPHOCYTES/100 LEUKOCYTES IN BLOOD-CELLAVISION 12 % Low 15-45 [facility] Comment on above: Performed By: #### L [id number], [id number] ####Commissioner Conservation Of Resources: UNA ARCE ([phone])[facility] [place] ([facility])[address] METAMYELOCYTES TOTAL PER COUNTED LEUKOCYTES BY MANUAL COUNT [facility] Comment on above: Performed By: #### L [id number], [id number] ####Commissioner Conservation Of Resources: UNA ARCE ([id number])[facility] [place] ([facility])[address] [place] [address] [place] MONOCYTES (10*3/UL) IN BLOOD-CELLAVISION 0.9 10*3/uL Normal 0.0-0.9 [facility] Comment on above: Performed By: #### L [id number], [id number] ####Commissioner Conservation Of Resources: UNA ARCE ([phone])[facility] [place] ([facility])[address] [place] [address] [place] MONOCYTES TOTAL PER COUNTED LEUKOCYTES BY MANUAL COUNT 7 Normal [facility] Comment on above: Performed By: #### L [id number], [id number] ####Commissioner Conservation Of Resources: UNA ARCE ([phone])[facility] [place] ([facility])[address] [place] [address] [place] MONOCYTES/100 LEUKOCYTES IN BLOOD-LUCIANA 7 % Normal 5-13 [facility] Comment on above: Performed By: #### L [id number], [id number] ####Commissioner Conservation Of Resources: UNA ARCE ([id number])[facility] [place] ([facility])[address] [place] [address] [place] MYELOCYTES COUNTED BY MANUAL COUNT Normal [facility] Comment on above: Performed By: #### L [id number], [id number] ####Commissioner Conservation Of Resources: UNA ARCE ([id number])[facility] [place] ([facility])[address] [place] [address] [place] NEUTROPHILS TOTAL PER COUNTED LEUKOCYTES BY MANUAL COUNT 77 Normal [facility] Comment on above: Performed By: #### L [id number], [id number] ####Commissioner Conservation Of Resources: UNA ARCE ([phone])[facility] [place] ([facility])[address] [place] [address] [place] POIKILOCYTOSIS (PRESENCE) IN BLOOD BY LIGHT MICROSCOPY Slight Abnormal (none) [facility] Comment on above: Performed By: #### L [id number], [id number] ####Commissioner Conservation Of Resources: UNA ARCE ([id number])[facility] [place] ([facility])[address] [place] [address] [place] PROMYELOCYTES TOTAL PER COUNTED LEUKOCYTES BY MANUAL COUNT Normal [facility] Comment on above: Performed By: #### L [id number], [id number] ####Commissioner Conservation Of Resources: UNA ARCE ([id number])[facility] [place] ([facility])[address] [place] [address] [place] RBC MORPHOLOGY IN BLOOD abnormal Normal S [facility] Comment on above: Performed By: #### L [id number], [id number] ####Commissioner Conservation Of Resources: UNA ARCE ([id number])[facility] [place] ([facility])[address] [place] [address] [place] SEGMENTED NEUTROPHILS (10*3/UL) IN BLOOD-CELLAVISION 9.8 10*3/uL High 1.8-7.5 [facility] Comment on above: Performed By: #### L [id number], [id number] ####Commissioner Conservation Of Resources: UNA ARCE ([id number])[facility] [place] ([facility])[address] SEGMENTED NEUTROPHILS/100 LEUKOCYTES-CE 75 % Normal 38-82 [facility] Comment on above: Performed By: #### L [id number], [id number] ####Commissioner Conservation Of Resources: UNA ARCE ([id number])[facility] [place] ([facility])[address] UNCLASSIFIED CELLS TOTAL PER COUNTED LEUKOCYTES BY MANUAL COUNT Normal [facility] Comment on above: Performed By: #### L [id number], [id number] ####Commissioner Conservation Of Resources: UNA ARCE ([id number])[facility] ([facility])[address] VARIANT LYMPHOCYTES (10*3/UL) IN BLOOD-CELLAVISION 0.3 10*3/uL High <=0.0 [facility] Comment on above: Performed By: #### L [id number], [id number] ####Commissioner Conservation Of Resources: UNA ARCE ([phone])[facility] [place] ([facility])[address] VARIANT LYMPHOCYTES TOTAL PER COUNTED LEUKOCYTES BY MANUAL COUNT 2 Normal [facility] Comment on above: Performed By: #### L [id number], [id number] ####Commissioner Conservation Of Resources: UNA ARCE ([phone])[facility] [place] ([facility])[address] [place] [address] [place] Magnesium [Mass/Vol]on 04-16 Interpretation and review of laboratory results Normal [facility] No Panel Informationon 04-16 [facility] Atypical Lymphocytes Manual 2 [facility] Cervilenz Basophils Manual 1 [facility] Eosinophils Manual 4 High 0 - 1 [facility] Interpretation and review of laboratory results Abnormal [facility] Cervilenz Lymphocytes Manual 12 [facility] Monocytes Manual 7 [facility] alth Neutrophils Manual 77 [facility] Nursing Noteon 04-16-2025 Nursing Note Normal [facility] Progress Noteon 04-16-2025 Progress Note Normal [facility] Progress Note Normal [facility] Progress Note Normal [facility] Note Normal [facility] Progress Note Normal [facility] Progress [facility] [id number] 04-15-2025 [id number] Normal [facility] Bacteria identified Anaer cx Nom (Unsp spec)on 04-15-2025 Interpretation and review of laboratory results Normal [facility] CBC W Auto Differential pane l (Bld)on 04-15-2025 Erythrocyte distribution width (RBC) [Ratio] 25.3 % High 11.5 - 15.0 % [facility] Hematocrit (Bld) [Volume fraction] 28 % Low 40.0 - 52.0 % [facility] Hemoglobin (Bld) [Mass/Vol] 7.8 g/dL Low 13.0 - 18.0 g/dL [facility] Interpretation and review of laboratory results Abnormal [facility] MCH (RBC) [Entitic mass] 23.4 pg Low 26. 0 - 34.0 pg [facility] MCHC (RBC) [Mass/Vol] 27.9 % Low 30.5 - 36.0 % [facility] MCV (RBC) [Entitic vol] 84.1 fL 77.0 - 99.0 fL [facility] Platelet mean volume (Bld) [Entitic vol] 9.1 fL 9.0 - 12.7 fL [facility] Platelets (Bld) [#/Vol] 332 10*3/uL 140 - 440 10*3/uL [facility] RBC (Bld) [#/Vol] 3.33 10*6/uL Low 4.40 - 5.9 0 10*6/uL [facility] WBC (Bld) [#/Vol] 12.4 10*3/uL High 3.6 - 10.7 10*3/uL [facility] CBC WITH AUTO DIFFERENTIALon 04-15-2025 Erythrocyte distribution width (RBC) [Ratio] 25.3 % High 11.5-15.0 [facility] Comment on above: Performed By: #### L [id number], [id number] ####Commissioner Conservation Of Resources: UNA STAUFFERMELANIE ([phone])[facility] ([facility])[address] Hematocrit (Bld) [Volume fraction] 28.0 % Low 40.0-52.0 [facility] Comment on above: Performed By: #### L [id number], [id number] ####Commissioner Conservation Of Resources: UNA ARCE ([phone])[facility]ITAL[facility] ([facility])[address] Hemoglobin (Bld) [Mass/Vol] 7.8 g/dL Low 13.0-18.0 [facility] Comment on above: Performed By: #### L [id number], [id number] ####Commissioner Conservation Of Resources: UNA STAUFFERMELANIE ([phone])[facility]ITALAngel [facility]STITUTEMar[facility] (SBHLAB)[address] MCH (RBC) [Entitic mass] 23.4 pg Low 26.0-34.0 [facility] Comment on above: Performed By: #### L [id number], [id number] ####Commissioner Conservation Of Resources: UNA ARCE ([id number])[facility]PITALAngel [facility]ZCARLSBAD MEDICAL CENTERN (SBHLAB)[address] MCHC 27.9 % Low 30.5-36.0 [facility] Comment on above: Performed By: #### L [id number], [id number] ####Commissioner Conservation Of Resources: UNA ARCE ([phone])[facility]ITALAngel [facility]CAR[facility]BAD [facility] CENTERN (SBHLAB)[address] MCV (RBC) [Entitic vol] 84.1 fL Normal 77.0-99.0 [facility] Comment on above: Performed By: #### L [id number], [id number] ####Commissioner Conservation Of Resources: UNA ARCE ([phone])[facility]ITALAngel [place] (SBHLAB)[address] Platelet mean volume (Bld) [Entitic vol] 9.1 fL Normal 9.0-12.7 [facility] Comment on above: Performed By: #### L [id number], [id number] ####Commissioner Conservation Of Resources: UNA ARCE ([phone])[facility]ITALA LAURACARLSBAD MEDICAL CENTERN (SBHLAB)[address] Platelets (Bld) [#/Vol] 332 10*3/uL Normal 140-440 [facility] Comment on above: Performed By: #### L [id number], [id number] ####Commissioner Conservation Of Resources: UNA ARCE ([phone])[facility] [place] (SBHLAB)[address] RBC (Bld) [#/Vol] 3.33 10*6/uL Low 4.40-5.90 [facility] Comment on above: Performed By: #### L [id number], [id number] ####Commissioner Conservation Of Resources: UNA ARCE ([phone])[facility]ITALA BARBCARLSBAD MEDICAL CENTERN (SBHLAB)[address] WBC (Bld) [#/Vol] 12.4 10*3/uL High 3.6-10.7 [facility] Comment on above: Performed By: #### L [id number], [id number] ####Commissioner Conservation Of Resources: UNA ARCE ([phone])[facility] (SBHLAB)[address] COMPREHENSIVE METABOLIC PANE Anant 04-15-2025 Albumin [Mass/Vol] 2.1 g/dL Low 3.4-4.8 [facility] Comment on above: Performed By: #### L [id number], [id number] ####Commissioner Conservation Of Resources: UNA ARCE ([phone])[facility] ([facility]AB)[address] ALP [Catalytic activity/Vol] 48 U/L Normal 40-150 [facility] Comment on above: Performed By: #### L [id number], [id number] ####Commissioner Conservation Of Resources: UNA [phone])[facility] (SBHLAB)[address] ALT [Catalytic activity/Vol] U/L Normal <40 [facility] Comment on above: Performed By: #### L [id number], [id number] ####Commissioner Conservation Of Resources: UNA ARCE ([phone])[facility] (SBHLAB)[address] Anion gap [Moles/Vol] 9 mmol/L Normal 3-13 [facility] Comment on above: Performed By: #### L [id number], [id number] ####Commissioner Conservation Of Resources: UNA ARCE ([phone])[facility]A [place] (SBHLAB)[address] AST [Catalytic activity/Vol] 21 U/L Normal <34 [facility] Comment on above: Performed By: #### L [id number], [id number] ####Commissioner Conservation Of Resources: UNA ARCE ([id number])[facility]A [place] (SBHLAB)[address] Bilirubin [Mass/Vol] 0.6 mg/dL Normal <1.2 [facility] Comment on above: Performed By: #### L [id number], [id number] ####Commissioner Conservation Of Resources: UNA ARCE ([phone])[facility]ITALA [place] (SBHLAB)[address] Calcium [Mass/Vol] 8.2 mg/dL Low 8.8-10.0 [facility] Comment on above: Performed By: #### L [id number], [id number] ####Commissioner Conservation Of Resources: UNA ARCE ([phone])[facility]A [place] (SBHLAB)155 [place] [address] [place] Chloride [Moles/Vol] 90 mmol/L Low 98-107 [facility] Comment on above: Performed By: #### L AB17, [id number] ####Commissioner Conservation Of Resources: UNA ARCE ([phone])[facility]A [place] (SBHLAB)[address] CO2 [Moles/Vol] 40 mmol/L High 23-31 [facility] Comment on above: Performed By: #### L AB17, [id number] ####Commissioner Conservation Of Resources: UNA ARCE ([phone])[facility]ITALAngel BASHIRN (SBHLAB)[address] Creatinine [Mass/Vol] 1.58 mg/dL High 0.72-1.25 [facility] Comment on above: Performed By: #### L AB17, [id number] ####Commissioner Conservation Of Resources: UNA ARCE ([phone])[facility]ITALAngel [facility]CAR[facility]ERN (SBHLAB)[address] GLOMERULAR FILTRATION RATE ML/MIN/1.73 SQ M.PREDICTED 41.6 mL/min/1.73m*2 Low >60.0 [facility] Comment on above: Result Comment: Calc ulation based on the Chronic Kidney Disease Epidemiology Collaboration (CKD-EPI) equation refit without adjustment for race Performed By: #### L AB17, [id number] ####Commissioner Conservation Of Resources: UNA ARCE ([phone])[facility]ITALAngel [facility]ZCAR[facility]ENTERN (SBHLAB)[address] Glucose [Mass/Vol] 130 mg/dL High 82-115 [facility] Comment on above: Performed By: #### L [id number], [id number] ####Commissioner Conservation Of Resources: UNA ARCE ([id number])[facility]ITALAngel [facility]CAR[facility]ENTERN (SBHLAB)[address] Potassium [Moles/Vol] 3.5 mmol/L Normal 3.5-5.1 [facility] Comment on above: Result Comment: [facility] potassium values may be up to 0.5 mmol/L lower than serum values. Performed By: #### L AB17, [id number] ####Commissioner Conservation Of Resources: UNA ARCE ([phone])[facility]ITALAngel [facility] (SBHLAB)[address] Protein [Mass/Vol] 5.7 g/dL Low 6.4-8.3 [facility] Comment on above: Performed By: #### L AB17, [id number] ####Commissioner Conservation Of Resources: UNA BERMUDEZSILASMELANIE ([phone])[facility] (SBHLAB)[address] Sodium [Moles/Vol] 139 mmol/L Normal 136-145 [facility] Comment on above: Performed By: #### L AB17, [id number] ####Commissioner Conservation Of Resources: UNA BERMUDEZPEDRO ([phone])[facility] (SBHLAB)[address] Urea nitrogen [Mass/Vol] 43 mg/dL High 9-23 [facility] Comment on above: Performed By: #### L AB17, [id number] ####Commissioner Conservation Of Resources: UNAANJEL BERMUDEZPEDRO ([phone])[facility] (SBHLAB)[address] Comprehensive metabolic 1998 panelon 04-15-2025 Albumin [Mass/Vol] 2.1 g/dL Low 3.4 - 4.8 g/dL [facility] ALP [Catalytic activity/Vol] 48 U/L 40 - 150 U/L [facility] ALT [Catalytic activity/Vol] U/L [facility] U/L [facility] Anion gap [Moles/Vol] 9 mmol/L 3 - 13 mmol/L [facility] AST [Catalytic activity/Vol] 21 U/L [facility] - 34 U/L [facility] Bilirubin [Mass/Vol] 0.6 mg/dL NINF - 1.2 mg/dL [facility] Calcium [Mass/Vol] 8.2 mg/dL Low 8.8 - 10. 0 mg/dL [facility] Chloride [Moles/Vol] 90 mmol/L Low 98 - 10 7 mmol/L [facility] CO2 [Moles/Vol] 40 mmol/L High 23 - 31 mmol/L [facility] Creatinine [Mass/Vol] 1.58 mg/dL High 0.72 - 1.25 mg/dL [facility] GFR/1.73 sq M.predicted (S/P/Bld) [Vol rate/Area] 41.6 mL/min Low - PINF [facility] Glucose [Mass/Vol] 130 mg/dL High 82 - 115 mg/dL [facility] Interpretation and review of laboratory results Abnormal [facility] Potassium [Moles/Vol] 3.5 mmol/L 3.5 - 5.1 mmol/L [facility] Protein [Mass/Vol] 5.7 g/dL Low 6.4 - 8.3 g/dL [facility] Sodium [Moles/Vol] 139 mmol/L 136 - 145 mmol/L [facility] Urea nitrogen [Mass/Vol] 43 mg/dL High 9 - 23 mg/d L [facility] Laboratory - Chemistry and C hemistry - challengeon 04-15-2025 Magnesium [Mass/Vol] 1.8 mg/dL 1.6 - 2 .6 mg/dL [facility] - Hematology and Cell countson 04-15-2025 Anisocytosis Ql (Bld) Moderate Abnormal (none) [facility] Basophils (Bld) [#/Vol] 0.2 10*3/uL 0.0 - 0.2 10*3/uL [facility] Basophils/100 WBC (Bld) 2 % 0 - 2 % [facility] Eosinophils (Bld) [#/Vol] 0.1 10*3/uL 0.0 - 0.5 10*3/uL [facility] Eosinophils/100 WBC (Bld) 1 % 0 - 6 % [facility] Hypochromia Ql (Bld) Moderate Abnormal (none) [facility] Lymphocytes (Bld) [#/Vol] 1.2 10*3/uL 1.0 - 4.3 10*3/uL [facility] Lymphocytes/100 WBC (Bld) 10 % Low 15 - 45 % [facility] Monocytes (Bld) [#/Vol] 1.6 10*3/uL High 0.0 - 0.9 10*3/uL [facility] Monocytes/100 WBC (Bld) 13 % 5 - 13 % [facility] Neutrophils (Bld) [#/Vol] 9.3 10*3/uL High 1.8 - 7.5 10*3/uL [facility] Poikilocytosis LM Ql (Bld) Slight Abnormal (none) [facility] RBC morphology finding Nom (Bld) abnormal [facility] Segmented neutrophils/100 WBC (Bld) 75 % 38 - 82 % [facility] Stomatocytes LM Ql (Bld) Slight Abnormal (none) [facility] - Microbiology an d Antimicrobial susceptibilityon 04-15-2025 Bacteria identified Anaer cx Nom (Unsp spec) No growth at 5 days [facility] Lower GI hemoglobin spec 1 I A Ql (Stl)Ordered By: Harlodo Alvarez on 04-15-2025 Fecal occult blood Negative Negative [facility] Interpretation and review of laboratory results Normal [facility] MAGNESIUMon 04-15-2025 Magnesium [Mass/Vol] 1.8 mg/dL Normal 1.6-2.6 [facility] Comment on above: Result Comment: YARELI R COMMENTS:Higher values can be expected in females during menses. Performed By: #### L [id number], [id number] ####Commissioner Conservation Of Resources: UNA ARCE ([phone])[facility]ITALAngel [facility]LUIS (SBAB)[address] [place] [address] MANUAL DIFFERENTIAL (CELLAVI BANDAR)on 04-15-2025 ANISOCYTOSIS PRESENCE IN BLOOD BY LIGHT MICROSCOPY Moderate Abnormal (none) [facility] Comment on above: Performed By: #### L [id number], [id number] ####Commissioner Conservation Of Resources: UNA ARCE ([phone])[facility]ITALAngel [facility] (SBAB)[address] BAND NEUTROPHILS TOTAL PER COUNTED LEUKOCYTES BY MANUAL COUNT Normal [facility] Comment on above: Performed By: #### L [id number], [id number] ####Commissioner Conservation Of Resources: UNA ARCE ([phone])[facility]ITALAngel [facility]STITUTEM[facility] (SBHLAB)[address] BASOPHILS (10*3/UL) IN BLOOD-CELLAVISION 0.2 10*3/uL Normal 0.0-0.2 [facility] Comment on above: Performed By: #### L [id number], [id number] ####Commissioner Conservation Of Resources: UNA ARCE ([id number])[facility] (SBHLAB)[address] BASOPHILS TOTAL PER COUNTED LEUKOCYTES BY MANUAL COUNT 2 Normal [facility] Comment on above: Performed By: #### L [id number], [id number] ####Commissioner Conservation Of Resources: UNA ARCE ([phone])[facility]ITALA [place] (SBHLAB)[address] [place] [address] [place] BASOPHILS/100 LEUKOCYTES IN BLOOD-CELLAVISION 2 % Normal 0-2 [facility] Comment on above: Performed By: #### L [id number], [id number] ####Commissioner Conservation Of Resources: UNA ARCE ([id number])[facility] [place] (SBHLAB)155 [place] [address] [place] BLASTS TOTAL PER COUNTED LEUKOCYTES BY MANUAL COUNT Normal [facility] Comment on above: Performed By: #### L [id number], [id number] ####Commissioner Conservation Of Resources: UNA STAUFFERMELANIE ([phone])[facility]ITALA [place] (SBHLAB)[address] [place] [address] [place] EOSINOPHILS (10*3/UL) IN BLOOD-CELLAVISION 0.1 10*3/uL Normal 0.0-0.5 [facility] Comment on above: Performed By: #### L [id number], [id number] ####Commissioner Conservation Of Resources: UNA ARCE ([id number])[facility]A [place] (SBHLAB)[address] [place] [address] [place] EOSINOPHILS TOTAL PER COUNTED LEUKOCYTES BY MANUAL COUNT 1 Normal 0-1 [facility] Comment on above: Performed By: #### L [id number], [id number] ####Commissioner Conservation Of Resources: UNA ARCE ([id number])[facility] [place] (SBHLAB)[address] [place] [address] [place] EOSINOPHILS/100 LEUKOCYTES IN BLOOD-CELLAVISION 1 % Normal 0-6 [facility] Comment on above: Performed By: #### L [id number], [id number] ####Commissioner Conservation Of Resources: UNA ARCE ([phone])[facility] [place] (SBHLAB)[address] [place] [address] [place] HYPOCHROMIA (PRESENCE) IN BLOOD BY LIGHT MICROSCOPY Moderate Abnormal (none) [facility] Comment on above: Performed By: #### L [id number], [id number] ####Commissioner Conservation Of Resources: UNA ARCE ([phone])[facility] [place] (SBHLAB)[address] [place] [address] [place] LYMPHOCYTES (10*3/UL) IN BLOOD-CELLAVISION 1.2 10*3/uL Normal 1.0-4.3 [facility] Comment on above: Performed By: #### L [id number], [id number] ####Commissioner Conservation Of Resources: UNA ARCE ([id number])[facility] [place] (SBHLAB)[address] LYMPHOCYTES TOTAL PER COUNTED LEUKOCYTES BY MANUAL COUNT 10 Normal [facility] Comment on above: Performed By: #### L [id number], [id number] ####Commissioner Conservation Of Resources: UNA ARCE ([id number])[facility] [place] (SBHLAB)[address] [place] [address] [place] LYMPHOCYTES/100 LEUKOCYTES IN BLOOD-CELLAVISION 10 % Low 15-45 [facility] Comment on above: Performed By: #### L [id number], [id number] ####Commissioner Conservation Of Resources: UNA ARCE ([phone])[facility] [place] (SBHLAB)[address] [place] [address] [place] METAMYELOCYTES TOTAL PER COUNTED LEUKOCYTES BY MANUAL COUNT Normal [facility] Comment on above: Performed By: #### L [id number], [id number] ####Commissioner Conservation Of Resources: UNA ARCE ([phone])[facility] [place] (SBHLAB)[address] [place] [address] [place] MONOCYTES (10*3/UL) IN BLOOD-CELLAVISION 1.6 10*3/uL High 0.0-0.9 [facility] Comment on above: Performed By: #### L [id number], [id number] ####Commissioner Conservation Of Resources: UNA ARCE ([phone])[facility] [place] (SBHLAB)[address] [place] [address] [place] MONOCYTES TOTAL PER COUNTED LEUKOCYTES BY MANUAL COUNT 13 Normal [facility] Comment on above: Performed By: #### L [id number], [id number] ####Commissioner Conservation Of Resources: UNA STAUFFERMELANIE ([phone])[facility] [place] (SBHLAB)[address] [place] [address] [place] MONOCYTES/100 LEUKOCYTES IN BLOOD-LUCIANA 13 % Normal - [facility] Comment on above: Performed By: #### L [id number], [id number] ####Commissioner Conservation Of Resources: UNA STAUFFERMELANIE ([phone])[facility] [place] (SBHLAB)[address] [place] [address] [place] MYELOCYTES COUNTED BY MANUAL COUNT [facility] Comment on above: Performed By: #### L [id number], [id number] ####Commissioner Conservation Of Resources: UNA STAUFFERMELANIE ([id number])[facility] [place] (SBHLAB)[address] [place] [address] [place] NEUTROPHILS TOTAL PER COUNTED LEUKOCYTES BY MANUAL COUNT 77 Normal [facility] Comment on above: Performed By: #### L [id number], [id number] ####Commissioner Conservation Of Resources: UNA ARCE ([id number])[facility] [place] (SBHLAB)[address] [place] [address] [place] POIKILOCYTOSIS (PRESENCE) IN BLOOD BY LIGHT MICROSCOPY Slight Abnormal (none) [facility] Comment on above: Performed By: #### L [id number], [id number] ####Commissioner Conservation Of Resources: UNA ARCE ([id number])[facility] [place] (SBHLAB)[address] [place] [address] [place] PROMYELOCYTES TOTAL PER COUNTED LEUKOCYTES BY MANUAL COUNT [facility] Comment on above: Performed By: #### L [id number], [id number] ####Commissioner Conservation Of Resources: UNA ARCE ([id number])[facility] [place] (SBHLAB)[address] [place] [address] [place] RBC MORPHOLOGY IN BLOOD abnormal Normal [facility] Comment on above: Performed By: #### L [id number], [id number] ####Commissioner Conservation Of Resources: UNA ARCE ([phone])[facility] (SBHLAB)[address] SEGMENTED NEUTROPHILS (10*3/UL) IN BLOOD-CELLAVISION 9.3 10*3/uL High 1.8-7.5 [facility] Comment on above: Performed By: #### L [id number], [id number] ####Commissioner Conservation Of Resources: UNA ARCE ([id number])[facility]ITALA [facility]ERN (SBHLAB)[address] SEGMENTED NEUTROPHILS/100 LEUKOCYTES-CE 75 % Normal 38-82 [facility] Comment on above: Performed By: #### L [id number], [id number] ####Commissioner Conservation Of Resources: UNA ARCE ([phone])[facility] (SBHLAB)[address] STOMATOCYTES IN BLOOD BY LIGHT MICROSCOPY Slight Abnormal (none) [facility] Comment on above: Performed By: #### L [id number], [id number] ####Commissioner Conservation Of Resources: UNA ARCE ([phone])[facility] (SBHLAB)[address] UNCLASSIFIED CELLS TOTAL PER COUNTED LEUKOCYTES BY MANUAL COUNT Normal [facility] Comment on above: Performed By: #### L [id number], [id number] ####Commissioner Conservation Of Resources: UNA ARCE ([id number])[facility] (SB[facility]AB)[address] VARIANT LYMPHOCYTES TOTAL PER COUNTED LEUKOCYTES BY MANUAL COUNT Normal [facility] Comment on above: Performed By: #### L [id number], [id number] ####Commissioner Conservation Of Resources: UNA ARCE ([phone])[facility] (SBHLAB)[address] [place] [address] [place] Magnesium [Mass/Vol]on 04-15 Interpretation and review of laboratory results Normal [facility] No Panel Informationon 04-15 Basophils Manual 2 [facility] Eosinophils Manual 1 0 - 1 [facility] Interpretation and review of laboratory results Abnormal [facility] Lymphocytes Manual 10 [facility] Monocytes Manual 13 [facility] Neutrophils Manual 77 [facility] OCCULT BLOOD, STOOLon 2024 OCCULT BLOOD, STOOL FECAL OCCULT, STOOL Reference Negative Negative ORDER COMMENTS: Methodology: Immunoassay Normal [facility] Comment on above: Performed By: #### L [id number] ####Commissioner Conservation Of Resources: UNA ARCE ([phone])[facility] ([place])[address] [place] [address] Progress Noteon 04-15-2025 Progress Note Normal [facility] Progress Note Normal [facility] Progress Note Normal [facility] Progress Note Normal [facility] XR Chest Single viewon 04-15 [facility] RADIOLOGY SYSTEM [facility] RADI[facility] Radiology Study observation (narrative) Lynette Balderrama alth [id number] 04-14-2025 [id number] Normal [facility] Bacteria identified Anaer cx Nom (Unsp spec)on 04-14-2025 Interpretation and review of laboratory results Normal [facility] CBC W Auto Differential pane l (Bld)on 04-14-2025 Erythrocyte distribution width (RBC) [Ratio] 25.4 % High 11.5 - 15.0 % [facility] Hematocrit (Bld) [Volume fraction] 27.3 % Low 40.0 - 52.0 % [facility] Hemoglobin (Bld) [Mass/Vol] 7.6 g/dL Low 13.0 - 18.0 g/dL [facility] MCH (RBC) [Entitic mass] 23.2 pg Low 26. 0 - 34.0 pg [facility] MCHC (RBC) [Mass/Vol] 27.8 % Low 30.5 - 36.0 % [facility] MCV (RBC) [Entitic vol] 83.5 fL 77.0 - 99.0 fL [facility] Platelet mean volume (Bld) [Entitic vol] 8.9 fL Low 9.0 - 12.7 fL [facility] Platelets (Bld) [#/Vol] 293 10*3/uL 140 - 440 10*3/uL [facility] RBC (Bld) [#/Vol] 3.27 10*6/uL Low 4.40 - 5.9 0 10*6/uL [facility] WBC (Bld) [#/Vol] 12.3 10*3/uL High 3.6 - 10.7 10*3/uL [facility] CBC WITH AUTO DIFFERENTIALon 04-14-2025 Erythrocyte distribution width (RBC) [Ratio] 25.4 % High 11.5-15.0 [facility] Comment on above: Performed By: #### L [id number], [id number] ####Commissioner Conservation Of Resources: UNA ARCE ([id number])[facility] (SBAB)[address] [place] [address] Hematocrit (Bld) [Volume fraction] 27.3 % Low 40.0-52.0 [facility] Comment on above: Performed By: #### L [id number], [id number] ####Commissioner Conservation Of Resources: UNA ARCE ([phone])[facility] (SBHLAB)[address] [place] [address] Hemoglobin (Bld) [Mass/Vol] 7.6 g/dL Low 13.0-18.0 [facility] Comment on above: Performed By: #### L [id number], [id number] ####Commissioner Conservation Of Resources: UNA ARCE ([phone])[facility] (SBHLAB)[address] [place] [address] MCH (RBC) [Entitic mass] 23.2 pg Low 26.0-34.0 [facility] Comment on above: Performed By: #### L [id number], [id number] ####Commissioner Conservation Of Resources: UNA ARCE ([id number])[facility] (SBHLAB)[address] [place] [address] MCHC 27.8 % Low 30.5-36.0 [facility] Comment on above: Performed By: #### L [id number], [id number] ####Commissioner Conservation Of Resources: UNA ARCE ([phone])[facility] (SBAB)[address] MCV (RBC) [Entitic vol] 83.5 fL Normal 77.0-99.0 [facility] Comment on above: Performed By: #### L [id number], [id number] ####Commissioner Conservation Of Resources: UNA ARCE ([id number])[facility]N (SBHLAB)[address] Platelet mean volume (Bld) [Entitic vol] 8.9 fL Low 9.0-12.7 [facility] Comment on above: Performed By: #### L [id number], [id number] ####Commissioner Conservation Of Resources: UNA ARCE ([phone])[facility]ITAL[facility] (SBHLAB)[address] Platelets (Bld) [#/Vol] 293 10*3/uL Normal 140-440 [facility] Comment on above: Performed By: #### L [id number], [id number] ####Commissioner Conservation Of Resources: UNA ARCE ([phone])[facility]ITAL[facility] (SBHLAB)[address] RBC (Bld) [#/Vol] 3.27 10*6/uL Low 4.40-5.90 [facility] Comment on above: Performed By: #### L [id number], [id number] ####Commissioner Conservation Of Resources: UNA ARCE ([phone])[facility] (SBHLAB)[address] WBC (Bld) [#/Vol] 12.3 10*3/uL High 3.6-10.7 [facility] Comment on above: Performed By: #### L [id number], [id number] ####Commissioner Conservation Of Resources: UNA ARCE ([phone])LYNETTE BASHIRN (SBHLAB)[address] COMPREHENSIVE METABOLIC PANE Anant 04-14-2025 Albumin [Mass/Vol] 2.1 g/dL Low 3.4-4.8 [facility] Comment on above: Performed By: #### L [id number], [id number] ####Commissioner Conservation Of Resources: UNA ARCE ([id number])[facility] (SB[facility])[address] ALP [Catalytic activity/Vol] 47 U/L Normal 40-150 [facility] Comment on above: Performed By: #### L AB103, [id number] ####Commissioner Conservation Of Resources: UNA ARCE ([phone])[facility] [place] (SBHLAB)[address] ALT [Catalytic activity/Vol] U/L Normal <40 [facility] Comment on above: Performed By: #### L AB103, [id number] ####Commissioner Conservation Of Resources: UNA ARCE ([phone])[facility] (SBHLAB)[address] Anion gap [Moles/Vol] 9 mmol/L Normal 3-13 [facility] Comment on above: Performed By: #### L AB103, LAB17 ####Commissioner Conservation Of Resources: UNA ARCE ([phone])[facility] (SBHLAB)[address] AST [Catalytic activity/Vol] 19 U/L Normal <34 [facility] Comment on above: Performed By: #### L AB103, LAB17 ####Commissioner Conservation Of Resources: UNA ARCE ([id number])[facility] [place] (SBHLAB)[address] Bilirubin [Mass/Vol] 0.6 mg/dL Normal <1.2 [facility] Comment on above: Performed By: #### L AB103, LAB17 ####Commissioner Conservation Of Resources: UNA ARCE ([id number])[facility] (SBHLAB)[address] Calcium [Mass/Vol] 8.1 mg/dL Low 8.8-10.0 [facility] Comment on above: Performed By: #### L AB103, LAB17 ####Commissioner Conservation Of Resources: UNA ARCE ([id number])LYNETTE BARBCHRISTINAN (SBHLAB)[address] Chloride [Moles/Vol] 92 mmol/L Low 98-107 [facility] Comment on above: Performed By: #### L AB103, LAB17 ####Commissioner Conservation Of Resources: UNA ARCE ([id number])[facility] [place] (SBHLAB)[address] CO2 [Moles/Vol] 39 mmol/L High 23-31 [facility] Comment on above: Performed By: #### L AB103, LAB17 ####Commissioner Conservation Of Resources: UNA ARCE ([id number])[facility] [place] (SBHLAB)[address] Creatinine [Mass/Vol] 1.43 mg/dL High 0.72-1.25 [facility] Comment on above: Performed By: #### L AB103, LAB17 ####Commissioner Conservation Of Resources: UNA ARCE ([phone])[facility] [place] (SBHLAB)[address] GLOMERULAR FILTRATION RATE ML/MIN/1.73 SQ M.PREDICTED 46.8 mL/min/1.73m*2 Low >60.0 [facility] Comment on above: Result Comment: Calc ulation based on the Chronic Kidney Disease Epidemiology Collaboration (CKD-EPI) equation refit without adjustment for race Performed By: #### L AB103, LAB17 ####Commissioner Conservation Of Resources: UNA ARCE ([phone])[facility] [place] (SBHLAB)155 [place] [address] [place] Glucose [Mass/Vol] 97 mg/dL Normal 82-115 [facility] Comment on above: Performed By: #### L AB103, LAB17 ####Commissioner Conservation Of Resources: UNA ARCE ([phone])[facility] [place] (SBHLAB)155 [place] [address] [place] Potassium [Moles/Vol] 3.8 mmol/L Normal 3.5-5.1 [facility] Comment on above: Result Comment: [facility] potassium values may be up to 0.5 mmol/L lower than serum values. Performed By: #### L AB103, LAB17 ####Commissioner Conservation Of Resources: UNA ARCE ([phone])[facility] (SBHLAB)[address] Protein [Mass/Vol] 5.7 g/dL Low 6.4-8.3 [facility] Comment on above: Performed By: #### L AB103, LAB17 ####Commissioner Conservation Of Resources: UNA ARCE ([id number])[facility] (SBHLAB)[address] Sodium [Moles/Vol] 140 mmol/L Normal 136-145 [facility] Comment on above: Performed By: #### L AB103, LAB17 ####Commissioner Conservation Of Resources: UNA ARCE ([phone])[facility] (SB[facility]AB)[address] Urea nitrogen [Mass/Vol] 39 mg/dL High 9-23 [facility] Comment on above: Performed By: #### L AB103, LAB17 ####Commissioner Conservation Of Resources: UNA STAUFFERMELANIE ([phone])[facility] (SBHLAB)[address] Comprehensive metabolic 1998 panelon 04-14-2025 Albumin [Mass/Vol] 2.1 g/dL Low 3.4 - 4.8 g/dL [facility] ALP [Catalytic activity/Vol] 47 U/L 40 - 150 U/L [facility] ALT [Catalytic activity/Vol] U/L NINF - 40 U/L [facility] Anion gap [Moles/Vol] 9 mmol/L 3 - 13 mmol/L [facility] AST [Catalytic activity/Vol] 19 U/L NINF - 34 U/L [facility] Bilirubin [Mass/Vol] 0.6 mg/dL NINF - 1.2 mg/dL [facility] Calcium [Mass/Vol] 8.1 mg/dL Low 8.8 - 10. 0 mg/dL [facility] Chloride [Moles/Vol] 92 mmol/L Low 98 - 10 7 mmol/L [facility] CO2 [Moles/Vol] 39 mmol/L High 23 - 31 mmol/L [facility] Creatinine [Mass/Vol] 1.43 mg/dL High 0.72 - 1.25 mg/dL [facility] GFR/1.73 sq M.predicted (S/P/Bld) [Vol rate/Area] 46.8 mL/min Low - PINF [facility] Glucose [Mass/Vol] 97 mg/dL 82 - 115 mg/dL [facility] Interpretation and review of laboratory results Abnormal [facility] Potassium [Moles/Vol] 3.8 mmol/L 3.5 - 5.1 mmol/L [facility] Protein [Mass/Vol] 5.7 g/dL Low 6.4 - 8.3 g/dL [facility] Sodium [Moles/Vol] 140 mmol/L 136 - 145 mmol/L [facility] Urea nitrogen [Mass/Vol] 39 mg/dL High 9 - 23 mg/d L [facility] Consulton 04-14-2025 Consult Normal [facility] ECG 12-LEADon 04-14-2025 ECG 12-LEAD IMPRESSION: Sinus arrhythmia LEFT ANTERIOR FASCICULAR BLOCK MULTIPLE ATRIAL PREMATURE COMPLEXES Compared to ECG 04/05/2025 15:59:31 No significant changes Electronically Signed On 04-14-2025 07:12:58 EDT by Ronal Maurice Normal [facility] Laboratory - Chemistry and C hemistry - challengeon 04-14-2025 Magnesium [Mass/Vol] 1.9 mg/dL 1.6 - 2 .6 mg/dL [facility] Laboratory - Hematology and Cell countson 04-14-2025 Anisocytosis Ql (Bld) Slight Abnormal (none) [facility] Basophils (Bld) [#/Vol] 0.1 10*3/uL 0.0 - 0.2 10*3/uL [facility] Basophils/100 WBC (Bld) 1 % 0 - 2 % [facility] Eosinophils (Bld) [#/Vol] 0.4 10*3/uL 0.0 - 0.5 10*3/uL [facility] Eosinophils/100 WBC (Bld) 3 % 0 - 6 % [facility] Hypochromia Ql (Bld) Moderate Abnormal (none) [facility] Lymphocytes (Bld) [#/Vol] 0.9 10*3/uL Low 1.0 - 4.3 10*3/uL [facility] Lymphocytes/100 WBC (Bld) 7 % Low 15 - 45 % [facility] Monocytes (Bld) [#/Vol] 1.8 10*3/uL High 0.0 - 0.9 10*3/uL [facility] Monocytes/100 WBC (Bld) 15 % High 5 - 13 % [facility] Neutrophils (Bld) [#/Vol] 9.1 10*3/uL High 1.8 - 7.5 10*3/uL [facility] Poikilocytosis LM Ql (Bld) Slight Abnormal (none) [facility] RBC morphology finding Nom (Bld) abnormal [facility] Segmented neutrophils/100 WBC (Bld) 74 % 38 - 82 % [facility] Stomatocytes LM Ql (Bld) Moderate Abnormal (none) [facility] Variant lymphocytes (Bld) [#/Vol] 0.1 10*3/uL High NINF - 0.0 10*3/uL [facility] Variant lymphocytes/100 WBC (Bld) 1 % High NINF - 0 % [facility] Laboratory - Microbiology an d Antimicrobial susceptibilityon 04-14-2025 Bacteria identified Anaer cx Nom (Unsp spec) No growth at 5 days [facility] MAGNESIUMon 04-14-2025 Magnesium [Mass/Vol] 1.9 mg/dL Normal 1.6-2.6 [facility] Comment on above: Result Comment: YARELI [place] COMMENTS:Higher values can be expected in females during menses. Performed By: #### L AB103, LAB17 ####Commissioner Conservation Of Resources: UNA ARCE ([phone])[facility] (SBAB)[address] MANUAL DIFFERENTIAL (CELLAVI BANDAR)on 04-14-2025 ANISOCYTOSIS PRESENCE IN BLOOD BY LIGHT MICROSCOPY Slight Abnormal (none) [facility] Comment on above: Performed By: #### L [id number], [id number] ####Commissioner Conservation Of Resources: UNA ARCE ([id number])[facility] [place] (SBHLAB)155 [place] [address] [place] BAND NEUTROPHILS TOTAL PER COUNTED LEUKOCYTES BY MANUAL COUNT [facility] Comment on above: Performed By: #### L [id number], [id number] ####Commissioner Conservation Of Resources: UNA ARCE ([phone])[facility] [place] (SBHLAB)[address] [place] [address] [place] BASOPHILS (10*3/UL) IN BLOOD-CELLAVISION 0.1 10*3/uL Normal 0.0-0.2 [facility] Comment on above: Performed By: #### L [id number], [id number] ####Commissioner Conservation Of Resources: UNA ARCE ([id number])[facility] [place] (SBHLAB)[address] [place] [address] [place] BASOPHILS TOTAL PER COUNTED LEUKOCYTES BY MANUAL COUNT 1 [facility] Comment on above: Performed By: #### L [id number], [id number] ####Commissioner Conservation Of Resources: UNA ARCE ([id number])[facility] [place] (SBHLAB)155 [place] [address] [place] BASOPHILS/100 LEUKOCYTES IN BLOOD-CELLAVISION 1 % Normal 0-2 [facility] Comment on above: Performed By: #### L [id number], [id number] ####Commissioner Conservation Of Resources: UNA ARCE ([phone])[facility] [place] (SBHLAB)[address] [place] [address] [place] BLASTS TOTAL PER COUNTED LEUKOCYTES BY MANUAL COUNT [facility] Comment on above: Performed By: #### L [id number], [id number] ####Commissioner Conservation Of Resources: UNA ARCE ([id number])[facility] [place] (SBHLAB)155 [place] [address] [place] EOSINOPHILS (10*3/UL) IN BLOOD-CELLAVISION 0.4 10*3/uL Normal 0.0-0.5 [facility] Comment on above: Performed By: #### L [id number], [id number] ####Commissioner Conservation Of Resources: UNA ARCE ([id number])[facility] [place] (SBHLAB)155 [place] [address] [place] EOSINOPHILS TOTAL PER COUNTED LEUKOCYTES BY MANUAL COUNT 3 High 0-1 [facility] Comment on above: Performed By: #### L [id number], [id number] ####Commissioner Conservation Of Resources: UNA ARCE ([phone])[facility] [place] (SBHLAB)155 [place] [address] [place] EOSINOPHILS/100 LEUKOCYTES IN BLOOD-CELLAVISION 3 % Normal 0-6 [facility] Comment on above: Performed By: #### L [id number], [id number] ####Commissioner Conservation Of Resources: UNA ARCE ([id number])[facility] [place] (SBHLAB)155 [place] [address] [place] HYPOCHROMIA (PRESENCE) IN BLOOD BY LIGHT MICROSCOPY Moderate Abnormal (none) [facility] Comment on above: Performed By: #### L [id number], [id number] ####Commissioner Conservation Of Resources: UNA ARCE ([id number])[facility] [place] (SBHLAB)[address] [place] [address] [place] LYMPHOCYTE VARIANT/100 LEUKOCYTES IN BLOOD- CELLAVISION 1 % High <=0 [facility] Comment on above: Performed By: #### L [id number], [id number] ####Commissioner Conservation Of Resources: UNA ARCE ([id number])[facility] [place] (SBHLAB)[address] [place] [address] [place] LYMPHOCYTES (10*3/UL) IN BLOOD-CELLAVISION 0.9 10*3/uL Low 1.0-4.3 [facility] Comment on above: Performed By: #### L [id number], [id number] ####Commissioner Conservation Of Resources: UNA ARCE ([id number])[facility] [place] (SBHLAB)[address] [place] [address] [place] LYMPHOCYTES TOTAL PER COUNTED LEUKOCYTES BY MANUAL COUNT 7 Normal [facility] Comment on above: Performed By: #### L [id number], [id number] ####Commissioner Conservation Of Resources: UNA ARCE ([id number])[facility] [place] (SBHLAB)155 [place] [address] [place] LYMPHOCYTES/100 LEUKOCYTES IN BLOOD-CELLAVISION 7 % Low 15-45 [facility] Comment on above: Performed By: #### L [id number], [id number] ####Commissioner Conservation Of Resources: UNA AREC ([id number])[facility] [place] (SBHLAB)155 [place] [address] [place] METAMYELOCYTES TOTAL PER COUNTED LEUKOCYTES BY MANUAL COUNT Normal [facility] Comment on above: Performed By: #### L [id number], [id number] ####Commissioner Conservation Of Resources: UNA ARCE ([id number])[facility] [place] (SBHLAB)155 [place] [address] [place] MONOCYTES (10*3/UL) IN BLOOD-CELLAVISION 1.8 10*3/uL High 0.0-0.9 [facility] Comment on above: Performed By: #### L [id number], [id number] ####Commissioner Conservation Of Resources: UNA ARCE ([id number])[facility] [place] (SBHLAB)[address] [place] [address] [place] MONOCYTES TOTAL PER COUNTED LEUKOCYTES BY MANUAL COUNT 15 Normal [facility] Comment on above: Performed By: #### L [id number], [id number] ####Commissioner Conservation Of Resources: UNA ARCE ([id number])[facility] [place] (SBHLAB)155 [place] [address] [place] MONOCYTES/100 LEUKOCYTES IN BLOOD-LUCIANA 15 % High 5-13 [facility] Comment on above: Performed By: #### L [id number], [id number] ####Commissioner Conservation Of Resources: UNA ARCE ([id number])[facility] [place] (SBHLAB)[address] [place] [address] [place] MYELOCYTES COUNTED BY MANUAL COUNT [facility] Comment on above: Performed By: #### L [id number], [id number] ####Commissioner Conservation Of Resources: UNA ARCE ([id number])[facility] [place] (SBHLAB)155 [place] [address] [place] NEUTROPHILS TOTAL PER COUNTED LEUKOCYTES BY MANUAL COUNT 75 Normal [facility] Comment on above: Performed By: #### L [id number], [id number] ####Commissioner Conservation Of Resources: UNA ARCE ([id number])[facility] [place] (SBHLAB)[address] POIKILOCYTOSIS (PRESENCE) IN BLOOD BY LIGHT MICROSCOPY Slight Abnormal (none) [facility] Comment on above: Performed By: #### L [id number], [id number] ####Commissioner Conservation Of Resources: UNA MOHRCER ([id number])[facility] [place] (SBHLAB)[address] PROMYELOCYTES TOTAL PER COUNTED LEUKOCYTES BY MANUAL COUNT Normal [facility] Comment on above: Performed By: #### L [id number], [id number] ####Commissioner Conservation Of Resources: UNA ARCE ([id number])[facility] [place] (SBHLAB)155 [place] [address] [place] RBC MORPHOLOGY IN BLOOD abnormal Normal S [facility] Comment on above: Performed By: #### L [id number], [id number] ####Commissioner Conservation Of Resources: UNA ARCE ([id number])[facility] [place] (SBHLAB)155 [place] [address] [place] SEGMENTED NEUTROPHILS (10*3/UL) IN BLOOD-CELLAVISION 9.1 10*3/uL High 1.8-7.5 [facility] Comment on above: Performed By: #### L [id number], [id number] ####Commissioner Conservation Of Resources: UNA ARCE ([id number])[facility] [place] (SBHLAB)155 [place] [address] [place] SEGMENTED NEUTROPHILS/100 LEUKOCYTES-CE 74 % Normal 38-82 [facility] Comment on above: Performed By: #### L [id number], [id number] ####Commissioner Conservation Of Resources: UNA ARCE ([id number])[facility] [place] (SBHLAB)155 [place] [address] [place] STOMATOCYTES IN BLOOD BY LIGHT MICROSCOPY Moderate Abnormal (none) [facility] Comment on above: Performed By: #### L [id number], [id number] ####Commissioner Conservation Of Resources: UNA ARCE ([id number])[facility] (SBHLAB)155 [place] [address] [place] UNCLASSIFIED CELLS TOTAL PER COUNTED LEUKOCYTES BY MANUAL COUNT Normal [facility] Comment on above: Performed By: #### L [id number], [id number] ####Commissioner Conservation Of Resources: UNA ARCE ([id number])[facility] (SBHLAB)[address] VARIANT LYMPHOCYTES (10*3/UL) IN BLOOD-CELLAVISION 0.1 10*3/uL High <=0.0 [facility] Comment on above: Performed By: #### L [id number], [id number] ####Commissioner Conservation Of Resources: UNA ARCE ([id number])[facility] (SBHLAB)[address] VARIANT LYMPHOCYTES TOTAL PER COUNTED LEUKOCYTES BY MANUAL COUNT 1 Normal [facility] Comment on above: Performed By: #### L [id number], [id number] ####Commissioner Conservation Of Resources: UNA ARCE ([phone])[facility] (SBHLAB)155 [place] [address] [place] Magnesium [Mass/Vol]on 04-14 Interpretation and review of laboratory results Normal [facility] No Panel Informationon 04-14 [facility] Radiology Study observation (narrative) [facility] ander Case Report [facility] Case Screening Location [facility], [address] [place] [address]; CLIA: [id number]; Joint Commission: [id number]; CAP: [id number] [facility] Comment f0nmoYWcRRTzcZFaTJBq M CftbeMeYLWzcMGnD4Nqfe eeLJrqAS3cGV2uaPkxuIR fmMHfCUXcBhGjo1rak790 lQBkt8buZIXMUWngXFEAP Kl4aHifQ57jv9Q4NingB8 3bvDApUOS4WMLmOXCneCF aHMGhNTF3EGNwwHVdM1dq VHMpTI3etcjkQHhuZNisX SGnzGW7ROLwoRMaO3PgSZ BjJIhaWJAxzcg6SdNoEj6 vdGVyeTcyMFxwYXJkXHBs YWluXGZzMjAgUGxlYXNlI IAnDQBsu8FuI8sltLZxKU ExWQRgg7ZfZXU8pH8dj1n 4MZSbUKHrbRZnASxTZzS4 URCxGORswXLwDlm9ZNI0t LNqOVWqSUd6rN8lCFhkg4 3fp7NpTfgpBHV9 [facility] i2nsvEWyZVSgnRBbGaJk M FJkTCQai8yqTHMbfSFzMs EwMzNcZnRuYmpcdWMxXGR iCfOft5khg903fGNqk6da RNQqPlG7fHSiEVGbR43gW VJRH082DMOtILqcs4tww0 FbIAQsyJKgz5T2VZRYFFa wXKZAXOx7lNliQ26lp4S3 ZxjoP2wqQCCvBXMvH2UoW Y6eWUVkUsk7NSF0SAE3SX XiCRGaD3LoQT5eKRHlgIK fMQh4q2sqgRkhBWYdABD4 g0fxLWyvxiRkDN0ocz9pn Kg6x3amgmWxFWMbIATywO QIDEKkT0VvsTlfIc3xrVo 0zBpzEhgiDGV1Tdw7CR6h kw64hsy3jYfmXXPlisxzL sM7UXzaQSIwjnogVAo5IS wfYDLbfGW7IXCkpNHtW2R zGAHwST1ucuq2RWV8XFoq NLFvOzE8YVKskHYqCOXbn NdrWOuzc882IYG6UjVyTG 0pU6Bsd9W7nD8umVWhOMS rwFBuFcLiHTPpof2fuDBs TMpbg5VbBRB3vgD9yRPqi MDtVHHkPZ98Sibfc9CzNw ieJAP3BRCzmiDxw8Dvn8t hZrYlukEkW5kqX9IdAAIk JBMqFMTgHnNpdyCwy1Enx 7GbwLLkzEo4a4okFCZxQP BlqSjap0ueTMW9QXZdH5R 5uQIin6pyMOhlMONtmMK8 vaT9HDFesRWpO9BahX7tZ TZdRP9fvwq5t8uyKVB8VT ohTDFbWmL2zjE7ENHddIW zUOXbkOxfLWzwp050PKW1 VxZlZTKpn8ItL0ZyoSkbZ 83toQbpG54aAMArhKcqxP 1wtMtccY4xEeQjUyJyOTo xbFxwbGFpblxmMVxmczE2 SVlfktbiYJZgJCjmW9axU bEtVKJzsVohNIyew9RzDV FaDCRbTUCbOCkaA2vtbS9 gtppvDLibVQYrsIpac1nb ZyBkgUB4UF4przQvAVCio CuhiaZ2thCyePkykE0riZ 2dsZshhD0bsEDvnPI3qij sIGluIHNpdHUgaHlicmlk aFjceXudcmhtwA1zJOU2b DXiNZQ2aGTnSVBqWKVzPK RhdA00yh0iuDMxbeYwU6G aB1SahUHxsZfpBvlglHDg kFHnVx7itZViAK9yVSHxt TWvA9YlFK2xSIRtbtvsKD IgVGhlIHVzZSBvZiBvbmU gm4KjgY7uENTwJMWvRP97 miQwhvM6dEMbROMuwqCtt GVzdHMgaXMgcmVndWxhdG GiPBCuSDOkKNWxNSo3tSI rk2HtA2kdrAJiriSbE2Ev kJJbFFNOMZ2iALzgn1Lta TOrpMOxf3KmENXhEGLxwJ 7pZFZpWH1pDFEnIUibJDS gxoAfsw7nfhTbJAQtOCKb F6ChabepoOmruuYtWPHpo u0uwlPyMLT6UTUyLBFlvO qiyATsfZKpBZItdtP0p8L wYPMkr1YfE6OgbAEnCHHm dSGlOUH0t9GqvI8mLGtgp LMsQRLgYK0xrDUtMHOiTV NsZWFyZWQgYnkgdGhlIFV WQEJdt2HpJD7dYQPtmBbm XCRfpG9hd6JuARAwq86eN EZEQSkuIFRoZSBGREEgaG FzIGRldGVybWluZWQgdGh wbNUxiGTfGAGxPBMgTH8n KMDjqqRqoYZyy1ZobJJsd wEhr8KtxfSaJACmBPT7Bx BccGFyXHBhciBBbGwgaW1 ciF4cc1KzxU6bAZqoyrUa eVXmOb6zwOFmCC7gLIHxi mFmZmluIGVtYmVkZGVkIH Nqq0M4BZ5jFVWunz3fllw qqIRqsQ3gcSHqzgWmSK4t PZ3lK8U0zGFzDMXccnRty 1usQWk1oCGwSYCumCOenF HaHcvzVSV3FLBoNWM4scL ktlHzHDUyvHhxyRT6gGAh HTGkBNCzROLnPJ35X5Xio 7XdL4hlRP91LKEhQVKgTD OknaJoo9cmDPUkv3nsYDX moUGcZ4AyVKRpqFZgikuw FzPgNVT3ICGaBUJ5cCQpA UMkX7QzyVAzmSQmxL95OV 5gyPR8VV6lGFA4GYbwiJ1 hTvSFgP50vw0geSM8g7Rm II1iR1FmVKIyo9W6zkAuS XGnLF2rvPRjWVRaYYPfgQ lkYXRlZCBvbiBkZWNhbGN nPwzbXNO4iQBmhBNkDjVV FEE7eANjPWQnb1XrMUKnH BPcxzBgaySmXJGrFLG0pK ClHLAzuMGja81tI2l3OV9 wtOahJUGohSViONCeo2Va rZMnjIq2lBBjEqTxZGsyI NOgCZgbbLb0qQX4DU5hNB TaX5IkE1pbsXXlGPNvZJZ iuYEpry4jhEZycS== [facility] j4iokOLaKOEfoFBHQJKg M NDfUF4auFpngVh6aMuhYK WgrxE1qWVsWJzir8wcNRX 5u5xitpTQYhjpYWLgIF6x CSgiJIFtNT5eDeGvVBZzP mYxXHBhcGVydzEyMjQwXH KskPFuhIZ2FBToRA5baco tDRqpEHvzZJNevcG4OWJy pTFnP3WzVOQvEO3utdxyI RA7VVKDXquoPr7lrQDhlH ANCntcZjFcZmNoYXJzZXQ yNVVlt5txniONdooagWy6 DIu4CPRdJMLxvECqn8E2R Onvj6sxe7YpQ1Kdl3YqOF g6aF4KKuqgG18uj8R2Uaf 5JSXtZFr9JHqsESWoKTBn Qng1EYo4T7nyHUSwSHohC PGnMIghcHZiACd5GKwra5 IwjIToLPr5VQhvKBPaE2Q bO7AlJDjxOjCiWAniKDXn BOFwAOmeKWYuA3CPPJJkI yD5MlP5XLZrWYt6HDofVo TJYNR6HSk3RqP8FVt6PNC pUS8eELkhxBAmYJahLqiq TYqaT116FEcyANXcS3HuT 3QgXFxzZyBcXGlkIDUxMD NbTOaiZHBaH5RWQGOgQcR 2MoM5MHDiBXa4YZiyO4TR GFXtTLR6ERF7RrDpHtT9D Hp1DRSVGo4lUIT8XVC7CQ zuJOI9JNDmZHeqlkrdERw 0IDIgXFxzcyAzIFxcZmwg OBgqO25mySNwVNCQYhseb GFpblxlcGljTmVzdERvYz IiCApciWSsfCAiCT2BCRh 0cmNoXGNmMVxmczIwIEEg WKLGhIK6zlAxGCOgmtq6t BkkHcykbTP6ZCWbOBOdZO rgXLUcBMp7CBLbrAhiDLF ju5VbQ4B5FAQbWAeyn8kc CITmIYbdv0HaLFeSKTSTV I6MXL3vvAA4UQbCWICLB0 wNkAIsLXYtT7lycOT4b1o uxQHiw6w8JGbaTMO2gGIu y2TgwSibEnewtWG8ONedJ kforT0lyKREUPVBRziPYl fyarIdTU2WFXXDNK2VtRO tZRNcF4ousJY6i8xfzWOc r1d8RZhgPES7hBhouUBwk lxsdHJjaFxmczIwICBccH IujEEplDggLtqbhOY1CQm rZtnbeP8jhNFIGXNVIvgG QzsnnwViLO8UYYRPNmIJA P06KXV2RES1rIA3Fk50XA ObVKReyIGqXQfnU720k5W daduyu9vizOMfICahFfvx sFOebhL5OBxKKQFQLKwNF eRkYO8aMRpDG2DZOxE9NA N4YXY7wVC2Nt44DOYzOAE phHGwNBjzG302SAGfTCkl DBh6ltQlSLQvYoYlPFGiv TjbEWIwI1BwiiOcPRmjwz 23KBW3j5shyZMxRWlyOqy yeDItpfB9DErLEQSLILnW SxRpBJ6kMWzTT4MSGPfFP yvjDHigKyA7X0cykJnvJh uwvwUswTJlFhBOtR5jfyR xaYeiCzivtIG9DSfrJcwa nX5fjSHDTUFKZkiBVgtwq uCuRJ1SJLCRET3BiQSrNV XdPHegoIF8y7ldvLOye1k 6EFaaEQR0tFwduDDoauml nISdgNmvsuBpSQ7vHTVqf iANClxiXGNmMiBNYXRlcm lfzZIgCYYhbBPaWPY5ASE yUOUdEOErWRRmyY8AvhEg IGFuZCAxIENlbGwgQmxvY 3axikprrRHzSL1PXLLelo ANClxmMlxmczIyXHBhciA TKzhbVKSvGSRiyWXYi5Np AHUYVzu2CG1SYMJvNZXee OAURRS9KE6qIOvuHKVlO2 GyV8XobpK3v5rxwYnhk7K vnOTzKV5lqTVyMZ4RIFCu fwSkNWxlyXsyuN9nYAe2 [facility] Pathologist Interpretation Location [facility], [address] [place] [id number]; CLIA: [id number]; Joint Commission: HCO [id number]; CAP: [id number] [facility] Pathology report final diagnosis Narrative c7sfjOCkJDRluPImKWToE QqsyhTfGWVukPVdE1Bosc kkOAokHM8eWF2zhThwrKE jbRCgLZCoQkAwr9cry524 aKBcb3jxDPGEQYdfJABUJ Wq2dJiiD93nr5T9PzifA8 reVBY7NAmmzrCpwcs7POH yuTQ8EHp1GFWsrZRjbdQt PlZtHWCabLBntOE7SHSlK J6qafznJUmlXAknAXJcww W8VBFsmAUgG2CoZMAmUC6 scoaxKFG7DVtrTTEmATV4 NzDpROPua5Ppqow6SgZpq GFyZFxwbGFpblxmczIwXG NmMSBBICAtIFBsZXVyYWw zU1I6gAA1MIOKaCidySSw TWHrDGjkBhp2lGNfGAF8x K8wn7t8NzzjMdXqGSQwiI EmRP9KRG4OUKcAHbAQLSI DRUxMUyBJREVOVElGSUVE VnphZAApZgQAX4EOVaUsC 0SJVHWNKGSUA4QAAagpTM NuVH2zuGKfjGX7rO0tQNM yZXNlbnQuIFxwYXJ9 [facility] CV EPIPHANY [facility] Atypical Lymphocytes Manual 1 [facility] Basophils Manual [address] [facility] Eosinophils Manual 3 High 0 - 1 [facility] Interpretation and review of laboratory results Abnormal [facility] Lymphocytes Manual 7 [facility] Monocytes Manual 15 [facility] Neutrophils Manual 75 [facility] No Panel InformationOrdered By: Marianna Francois on 04-14-2025 [facility] Work Phone: No Panel InformationOrdered By: Danyel Platt on 04-14-[address] [facility] Work Phone: Case Screening Location [facility], [address] [place] [id number]; CLIA: [id number]; Joint Commission: HCO [id number]; CAP: [id number] [facility] [facility] Work Phone: Comment a1gmxRUeHHMfmSZrUOQt M NmqnkBjAALobGQhS3Ywke ldNEzsMV3rMY2whWqttGF ikIMzYTVnOcXsy2rtv658 aUSts4rqPAQZOTngUCPTS Pb4wWiwB76st4K7XsexR5 4qvAAkTQP7XHZvSAVsfXI rTVSnSDH7DSTsxYKzO5cq UQZgRD5ostfzFAqrEUusR KQndLU6PLHgmRUhI8YvJR MdWAkpCVKzrkc3BcIbOh2 vdGVyeTcyMFxwYXJkXHBs SKezVWKxCtUnRC2doY8ka WgojU8haSGofXU1pwvpCW evpYdlZ35upBBnrGN2KCC BEcVakiBlC2OiwaO4hC7i biBoaWdobGlnaHQgbWVzb 2WiMMlgTDhtU7LzjFByPU BCRVIgRVAgNCwgVFRGLTE iZAEHPWyoWO1qTKSEXaYl GNNiVP5lG2P1xRUaTxJzH 9IgEgJdnHmzgHlpR2i3md ShwZ9tfv88kqUwRUBuu7N fALftfe5vfEJowA== [facility] Work Phone: Disclaimer u0ydiMUmQCWceUUzYiAk M GPvCLZbz8dpSQDgqKLrYx EwMzNcZnRuYmpcdWMxXGR iYsHpy6wyv324xZIpa0ki NEAcQuZ2uNQvJWZnN64dT LPXV320FHUsUKczf0vki2 PgBFUnsPItn5B8NJFKCGm dQTETMDs2qKscK23py7C0 XgerK6dbSILtIKZlY3SyM B0jGVIbIbw0LGS9IGZ4BO QqEHZoA1ElCE4sJXBwvYW gSUh8g2ncsBwqTBUvLOL7 g3iiXEvtnnKgPA8ibr1du Xs3y6tlxhLmDNRuEYAuoY KWCOVvR6CmiQifGf8nrIc 6uYpbSoxkOPP1Dba6UK2v kg94xdh5nFqiRAWnuwgsJ jY2POtyTEFpbsbkIOc9DG qfCLDohEX4RHSqnXUuK3F tDQGyGQ9pyup5ADI0ZBls WQLaDiU6GRBcaZRkTNIwf ZrzFRwxa924PFQ8CuRnOR 8lH6Tcn1T5uF7fyTCtHQD wySZjJbVlALBsxn8clYEd GIoqo0HaVYY1wgA4uFSqv IJtXIOqCE98Pjzga5JwCt wmHWV5IKXcdlKcb9Egk9e sKgBkwzSqM8tkN2GlGUPy ACMlYTMgDkMyldTzo2Mrw 8HpfOSskBz1d6dwOAPpWL WcqAsjc7skXSI8MPWvG0C 3zLVvm1vsBYupQALtjVE3 yzC0UITeaPXcG7AmnN4gO XJmCE1qcgv3c1inGLK5MF eyYASqOsG2ycZ9QYEtvOX yPOWkxAokDKbqe737DPG3 MzSlKBUpu6ToS7GemWuhB 38ylRoyS43iUIAzcBjrzT 7drJgqhV9aGmMoVtTnLXr xbFxwbGFpblxmMVxmczE2 XGtyoumdLLGaBEymV7krR xEyXKIvsDvyXRekc1VhMN LpVCCiPCGzDTjfU0cbwW2 rovwbIMglQNVnxBdin9vw TkJeuNL8VN6oorHtJVJbf ZfbfeH8amSqpPcmjJ4euC 0zdQwavK3tgJYrvJY8wqz sIGluIHNpdHUgaHlicmlk xLramXzydhnqvT2aIFQ2h AVwQLY9aGNnQRWpRYYgKT ZrjE02si8bgHRxjbEzP2Z qW6JfeFGpaIhqKkusqPGi hJLdZb6euXHqOE5aJPNpr YRmQ0OvLJ7dZNGyimghAH IgVGhlIHVzZSBvZiBvbmU ki1WtxI3uLGQaBUUiRO40 msLddrE1eCDuLGQdzuPrg GVzdHMgaXMgcmVndWxhdG EaKERvWFQvILLrHKi8fST rq6XdZ8sduRSndwMbU0Ci xTEyOGZNAY7wZNxvk6Yhs SZisPVyz8QcSCAzNHPlyF 1zVFFnFU9pDELpPNxfQTY cxpByxl9pnyLpWZQgMXJi M5UmoffpiRkbvbBtWYRtv a3ovkQuZHR5ZUIkPPQobJ scdALmfVIeVPEilgV9s7X nBUOkr0LqN3KfsWIzMAPl fZJsACF5b2QlrK4zCNzuk OYlFRVxQO3obAXnBPKcEG NsZWFyZWQgYnkgdGhlIFV KWFRnj0TdRM3yIZEgwAwr LQGorF4ac1LoFMZgb03aN EZEQSkuIFRoZSBGREEgaG FzIGRldGVybWluZWQgdGh cnAOanAXfJMYhJKQpPI5v EYKefnKdbYDux0JtoUTta lCjn5VsceApRVDwEXE7Tw BccGFyXHBhciBBbGwgaW1 txN1zg1EjgH6nMQvekmUc aPCzRk0nxCEwJM7yPIXjz mFmZmluIGVtYmVkZGVkIH Qhc8C8NH3jSZVzxz7jnag vyGSdeR7jvZGgsjRqAV9k MY2xX7U2wSXuJJJtlzAuy 8oeNFm4uJCzNISgoAZqnG OxZzxsWMU4JNXaIEE2xlA ajnAiWPXekBzqzCD3vLTy TLUmCOKaLOCjEW94I2Ykw 7TwQ6doIZ72CTKcGMFcKE SyweTff2alZXIml1dtRWO sfBAtX9SbKIZjkYNiwfoa NfTeRPB7PCAtUAF5iISbU ZPiA5UleGFhkWPdyS63GP 3cbKM9NW3lPRA4AJomeB4 uZwKGdF19if1uvCA2m5Sh MK1hB0KoEWQyn8Z4cjFrZ SWnUH6gzHKeOWWnWJEphD lkYXRlZCBvbiBkZWNhbGN lCrlgUOG8wNHmeIMaKtFT VYG4qAXfQVUuk3WbMPPrV UCcvvJbzjXdBDBgJIQ1kD BuOPUbmWYaf26fD2u5OE2 pePoaOCKvsNJxZLPng3Wp tFAotUl0kKTqXgTsTGulN VEiTYglhKz7nUM8DK7jBX EgK6KnS2wqcQMhKGIbBNL lbSTglw3rjRYwgL== [facility] [employer] Work Phone: Gross Description w1vinKKzZJHjgLSHBDFo M ISgFK8lwMobxWw4jKnaFW NujtV0fIOzKZgqf7jeWSJ 4y2woxnIHEwdcODInGD8v ICwoBFDcRO8kBiQzCCNoR mYxXHBhcGVydzEyMjQwXH QrtNSlrXL4JILkLT3cwnu lRVjnJNbxVOQzdtE3WROm lPVpV3IeKWQdIS0rzcrwZ MS0PKRKDgmrJl7fhJHneI ANCntcZjFcZmNoYXJzZXQ zQMYky6mtjwQQypbykUh4 QRa1CDXnMIZqlBGht7Q4B Wmsg8xga6VmW5Rmb5LeBN r8gK8GBgmaK25er2R4Myp 0FCMuUBz1UOqvZFRsKGHh Lgp8REg8I7pmQNKdCGceX GDwRFtzkTStBKt2QYxty8 QhvFQcWVc2BXwuYVRjA8S pM9NqLVfwHpQnRDxlBEUi DRGwFNybXHAdK9BQFVKvI bM5ARd1BRAqBBp9QUccMw LQDTV2KYW0IcL9YWc5OAH dWP3eEYlxxCTxKSxhOprs SNnmG508QYaqDMUuI6GfA 3QgXFxzZyBcXGlkIDUxMD CuQEsnAZFvY5HYKNDkPpB 9TTb7SWBdWDu9JYcsB4IN VAMsGUD2QCP4CeA8ZgO1K Xr1TXYOFl2yTAR0Lku3Kh d1DTI7CJVlTCbvuqenFId 0IDIgXFxzcyAzIFxcZmwg KRbrU28guZCmIMGIBlsls GFpblxlcGljTmVzdERvYz QnRTbprPBphQRbDM8UPUs 0cmNoXGNmMVxmczIwIEEg TWLAbRQ1njBzABPtbbg3j ObxSGNhlUjnE2GdKCElPK BhciANCjEwMDAgbUwgXHB nt5PyK8B9IOKwXVslg1mj KYTmNVzht0CzPYlAIDXWI M0NDC8ljMB4WCzBTGFXL4 tDeETmYEOcF5fpoMW3h6v ihAVtk8l5PGypDLU5aKQz h3ZtcEciFmxvdAF0APioN xhlzM1fmLCXGGHTRubDGo foeeJuQW2TEFNCRK9BwXW eRGWsR9ootUX9m6feiUPq b1f5KDkjDPR0mUxbbZGwu lxsdHJjaFxmczIwICBccH CkmNSltSugGqldiVW9BYt uGyoyeI5hkKAKVIVTCwpX BylfvyGiXY5VROFOBnIXW K42IKM0DUP8lZS3Fv62GE MrDTHmdROjCZtpQ931tWA orN97x0aapLHrXUdqAzzr iZHmrfV4VMfOCNPYXXnYA hZqDN8lURiPM2ZKZjV8VA N5WAW0iDD4Vq67ITJwBRW yeTFrTFdnS228HUBxZKyu JMo3jqEdHRKdJsVaPBXfj UipLPQrH1MyfrNkYLqnfg 13TWH1a6eeyUIzYQjlYha qwQGhavL2FOuOUAAYNAiI CkZwYO0uGAsSV8HVSZlYG ypoLVxiJyZ5K5mbeAxcZy jifhNywADqBoYJzG9mjhS gyRvvEgigmIV9UFqzWgqj bT8vdDIAVAMNQdlRFtccw dDuCK1MUWHLPS6LyWRoKO HqRYwzuUN0w7yylPKwk7g 0IFgvJGW5gLvkwRBsquza cRFbeNohqhGpOH5eAYMnz iANClxiXGNmMiBNYXRlcm gerMUkOWOucBMbWLC3VKN zRYHaBDLsUAPnhE9NnoLw IGFuZCAxIENlbGwgQmxvY 8rlrsatfVUeIH1IOUGeat ANClxmMlxmczIyXHBhciA MGhfkCRWvXYYuyKAAa4Nh BQLMFjj2RH0HCWJpZRYnc IFUUFH7TG9sNSmdJLIcK8 YhN2DyuqM4l5clyZvfl9L lzHJsAG5obFTlBY8WEZLx jwVcEYboqXdcfW0mGCu2 [facility] Phone: Pathologist Interpretation Location [facility], [address] [place] [address]; CLIA: [id number]; Joint Commission: HCO [id number]; CAP: [id number] [facility] Phone: Pathology report final diagnosis Narrative g8akdQXqNJSqxBYmWYArE UywjdKoSGWvhARzC7Dyvo pcNRgsFN6dFA8daOkkuXY apPGwHADgXqMha1tja274 eZVkl0yzOOYDXQwqFPFDT Dn3kCshD58wd7S8UdqfH9 hyADQ0TIoklzPtspv7EPZ zsSB8LYf8XMKfwJGeipKv XjAfWTNyuFZnkUG3CGLfZ C9hxnmjMDlxORyzKANygc K0BRHrzLZlG9QjEKFiUL3 otmmyMPX3KHyaWTEgPEI9 BeGcEPWxu4Drytv3JtJyb GFyZFxwbGFpblxmczIwXG NmMSBBICAtIFBsZXVyYWw mC8W9wTF1YBXNDEA9HG4l Be6smMJIuMUiREcfZ1t7j 4wyB6g4WDMpRYDnAIiuUY YpGp5aKNQSZNsYPB9SSQC MIQrSKHpXEL3RCEJECTXe XHBhclxwYXJ9 [employer] Work Phone: [employer] Work Phone: No Panel InformationOrdered By: Ronal Maurice on 04-14-2025 P [place] 44 degrees [employer] Work Phone: NE Interval 134 ms [facility] Work Phone: QRS [place] -35 degrees [facility] Work Phone: QRSD Interval 117 ms [facility] Work Phone: QT Interval 390 ms [employer] Work Phone: QTC Interval 450 ms [employer] Work Phone: T Wave [place] 78 degrees [employer] Work Phone: [facility] Work Phone: Nursing Noteon 08-06-2025 Nursing Note Normal [facility] Progress Noteon 04-14-2025 Progress Note Normal [facility] Progress Note Normal [facility] Progress Note Normal [facility] Progress Note Normal [facility] Note Normal [facility] Progress Note Normal [facility] Progress Note Normal [facility] US GUIDED THORACENTESISon US GUIDED THORACENTESIS Normal S [facility] Vital signsOrdered By: Jake Maurice on 04-14-2025 Heart rate 80 /min bpm [facility] Phone: XR Chest Single viewon 04-14 [facility] RADIOLOGY [facility] RADIOLOGY SYSTEM [facility] XR Chest Single viewOrdered By: Anthony Christian on 04-14-2025 [facility] Phone: [phone] 04-13-2025 [id number] Normal [facility] BLOOD GAS ARTERIALon 025 AMOUNT OF OXYGEN 2 lpm Normal [facility] Comment on above: Order Comment: Pleas e draw tomorrow AM after using BiPAP. Thank you! Performed By: #### L [id number] ####Commissioner Conservation Of Resources: UNA ARCE ([id number])[facility] ([address] Base excess Calc (Bld) [Moles/Vol] 11.7 mmol/L High -3.0-3.0 [facility] Comment on above: Order Comment: Pleas e draw tomorrow AM after using BiPAP. Thank you! Performed By: #### L [id number] ####Commissioner Conservation Of Resources: UNA ARCE ([id number])[facility] ([facility])[address] [place] [address] CO2 [Moles/Vol] 39.9 mmol/L High 22.0-28.0 [facility] Comment on above: Order Comment: Pleas e draw tomorrow AM after using BiPAP. Thank you! Performed By: #### L [id number] ####Commissioner Conservation Of Resources: UNA [phone])[facility] [place] ([facility])[address] HCO3 (Bld) [Moles/Vol] 38.1 mmol/L High 21.0-27.0 [facility] Comment on above: Order Comment: Pleas e draw tomorrow AM after using BiPAP. Thank you! Performed By: #### L [id number] ####Commissioner [employer] Resources: UNA STAUFFERMELANIE ([phone])[facility] ([facility])[address] Hemoglobin (Bld) [Mass/Vol] 11.3 g/dL Low Screen only [facility] Comment on above: Order Comment: Pleas e draw tomorrow AM after using BiPAP. Thank you! Performed By: #### L [id number] ####Commissioner Conservation Of Resources: UNA STAUFFERMELANIE ([phone])[facility] ([facility])[address] [place] [address] OXYGEN SATURATION (%) IN ARTERIAL BLOOD 95.1 % Low 97.0-99.0 [facility] Comment on above: Order Comment: Pleas e draw tomorrow AM after using BiPAP. Thank you! Performed By: #### L [id number] ####Commissioner Conservation Of Resources: UNA ARCE ([phone])[facility] ([facility])[address] [place] [address] PCO2 ARTERIAL 59.2 mm Hg High 35.0-48.0 [facility] Comment on above: Order Comment: Pleas e draw tomorrow AM after using BiPAP. Thank you! Performed By: #### L [id number] ####Commissioner Conservation Of Resources: UNA STAUFFERMELANIE ([phone])[facility] ([facility])[address] PH ARTERIAL 7.426 Normal 7.350-7.450 [facility] Comment on above: Order Comment: Pleas e draw tomorrow AM after using BiPAP. Thank you! Performed By: #### L [id number] ####Commissioner Conservation Of Resources: UNA ARCE ([id number])[facility] ([facility])[address] PO2 ARTERIAL 79.2 mm Hg Low 83.0-108.0 [facility] Comment on above: Order Comment: Pleas e draw tomorrow AM after using BiPAP. Thank you! Performed By: #### L [id number] ####Commissioner Conservation Of Resources: UNA ARCE ([phone])[facility] ([facility])[address] SOURCE OF OXYGEN Nasal Cannula (LPM) Normal [facility] Comment on above: Order Comment: Pleas e draw tomorrow AM after using BiPAP. Thank you! Performed By: #### L [id number] ####Commissioner Conservation Of Resources: UNA ARCE ([id number])[facility] ([facility])[address] Bacteria identified Aer cx N om (Unsp spec)on 04-13-2025 Gram Stain Result Rare Polymorphonuclear leukocytes per low power field [facility] Gram Stain Result No organisms seen [facility] Bacteria identified Aer cx N om (Unsp spec)Ordered By: Bianca Daigle on 04-13-2025 Gram Stain Result Moderate Polymorphonuclear leukocytes per low power field [facility] Gram Stain Result No organisms seen [facility] CBC W Auto Differential pane l (Bld)on 04-13-2025 Erythrocyte distribution width (RBC) [Ratio] 25 % High 11.5 - 15.0 % [facility] Hematocrit (Bld) [Volume fraction] 28.2 % Low 40.0 - 52.0 % [facility] Hemoglobin (Bld) [Mass/Vol] 7.8 g/dL Low 13.0 - 18.0 g/dL [facility] Interpretation and review of laboratory results Abnormal [facility] MCH (RBC) [Entitic mass] 23.2 pg Low 26. 0 - 34.0 pg [facility] MCHC (RBC) [Mass/Vol] 27.7 % Low 30.5 - 36.0 % [facility] MCV (RBC) [Entitic vol] 83.9 fL 77.0 - 99.0 fL [facility] Platelet mean volume (Bld) [Entitic vol] 9.1 fL 9.0 - 12.7 fL [facility] Platelets (Bld) [#/Vol] 276 10*3/uL 140 - 440 10*3/uL [facility] RBC (Bld) [#/Vol] 3.36 10*6/uL Low 4.40 - 5.9 0 10*6/uL [facility] WBC (Bld) [#/Vol] 12.7 10*3/uL High 3.6 - 10.7 10*3/uL [facility] CBC WITH AUTO DIFFERENTIALon 04-13-2025 Erythrocyte distribution width (RBC) [Ratio] 25.0 % High 11.5-15.0 [facility] Comment on above: Performed By: #### L [id number], [id number] ####Commissioner Conservation Of Resources: UNA ARCE ([id number])[facility] ([facility])[address] [place] [address] Hematocrit (Bld) [Volume fraction] 28.2 % Low 40.0-52.0 [facility] Comment on above: Performed By: #### L [id number], [id number] ####Commissioner Conservation Of Resources: UNA ARCE ([phone])[facility] ([facility])[address] [place] [address] Hemoglobin (Bld) [Mass/Vol] 7.8 g/dL Low 13.0-18.0 [facility] Comment on above: Performed By: #### L [id number], [id number] ####Commissioner Conservation Of Resources: UNA ARCE ([id number])[facility] ([facility])[address] [place] [address] MCH (RBC) [Entitic mass] 23.2 pg Low 26.0-34.0 [facility] Comment on above: Performed By: #### L [id number], [id number] ####Commissioner Conservation Of Resources: UNA ARCE ([id number])[facility] ([facility])[address] [place] [address] MCHC 27.7 % Low 30.5-36.0 [facility] Comment on above: Performed By: #### L [id number], [id number] ####Commissioner Conservation Of Resources: UNA ARCE ([id number])[facility] [place] ([facility])[address] MCV (RBC) [Entitic vol] 83.9 fL Normal 77.0-99.0 S [facility] Comment on above: Performed By: #### L [id number], [id number] ####Commissioner Conservation Of Resources: UNA ARCE ([id number])[facility] [place] ([facility])[address] Platelet mean volume (Bld) [Entitic vol] 9.1 fL Normal 9.0-12.7 [facility] Comment on above: Performed By: #### L [id number], [id number] ####Commissioner Conservation Of Resources: UNA ARCE ([id number])[facility] [place] ([facility])[address] [place] [address] [place] Platelets (Bld) [#/Vol] 276 10*3/uL Normal 140-440 [facility] Comment on above: Performed By: #### L [id number], [id number] ####Commissioner Conservation Of Resources: UNA ARCE ([id number])[facility] [place] ([facility])[address] RBC (Bld) [#/Vol] 3.36 10*6/uL Low 4.40-5.90 [facility] Comment on above: Performed By: #### L [id number], [id number] ####Commissioner Conservation Of Resources: UNA ARCE ([id number])[facility] [place] ([facility])[address] [place] [address] [place] WBC (Bld) [#/Vol] 12.7 10*3/uL High 3.6-10.7 [facility] Comment on above: Performed By: #### L [id number], [id number] ####Commissioner Conservation Of Resources: UNA ARCE ([id number])[facility] [place] ([facility])[address] COMPREHENSIVE METABOLIC PANE Anant 04-13-2025 Albumin [Mass/Vol] 2.2 g/dL Low 3.4-4.8 [facility] Comment on above: Performed By: #### L [id number], [id number], [id number] ####Commissioner Conservation Of Resources: UNA ARCE ([id number])[facility] [place] ([facility])[address] ALP [Catalytic activity/Vol] 52 U/L Normal 40-150 [facility] Comment on above: Performed By: #### L AB17, [id number], [id number] ####Commissioner Conservation Of Resources: UNA ACRE ([id number])[facility] [place] ([facility])[address] ALT [Catalytic activity/Vol] U/L Normal <40 [facility] Comment on above: Performed By: #### L AB17, [id number], [id number] ####Commissioner Conservation Of Resources: UNA ARCE ([id number])[facility] [place] ([facility])[address] Anion gap [Moles/Vol] 10 mmol/L Normal 3-13 [facility] Comment on above: Performed By: #### L AB17, [id number], [id number] ####Commissioner Conservation Of Resources: UNA ARCE ([id number])[facility] ([facility])[address] AST [Catalytic activity/Vol] 25 U/L Normal <34 [facility] Comment on above: Performed By: #### L AB17, [id number], [id number] ####Commissioner Conservation Of Resources: UNA ARCE ([id number])[facility] [place] ([facility])[address] Bilirubin [Mass/Vol] 0.6 mg/dL Normal <1.2 [facility] Comment on above: Performed By: #### L AB17, [id number], [id number] ####Commissioner Conservation Of Resources: UNA ARCE ([id number])[facility] [place] ([facility])[address] Calcium [Mass/Vol] 8.1 mg/dL Low 8.8-10.0 [facility] Comment on above: Performed By: #### L AB17, [id number], [id number] ####Commissioner Conservation Of Resources: UNA ARCE ([id number])[facility] [place] ([facility])[address] Chloride [Moles/Vol] 93 mmol/L Low 98-107 [facility] Comment on above: Performed By: #### L AB17, [id number], [id number] ####Commissioner Conservation Of Resources: UNA ARCE ([id number])[facility] [place] ([facility])[address] CO2 [Moles/Vol] 36 mmol/L High 23-31 [facility] Comment on above: Performed By: #### Gilbert AB17, [id number], [id number] ####Commissioner Conservation Of Resources: UNA ARCE ([id number])[facility] [place] ([facility])[address] Creatinine [Mass/Vol] 1.46 mg/dL High 0.72-1.25 [facility] Comment on above: Performed By: #### L AB17, [id number], [id number] ####Commissioner [employer] Of Resources: UNA ARCE ([id number])[facility] [place] ([facility])[address] [place] [address] [place] GLOMERULAR FILTRATION RATE ML/MIN/1.73 SQ M.PREDICTED 45.7 mL/min/1.73m*2 Low >60.0 [facility] Comment on above: Result Comment: Calc ulation based on the Chronic Kidney Disease Epidemiology Collaboration (CKD-EPI) equation refit without adjustment for race Performed By: #### L AB17, [id number], [id number] ####Commissioner Conservation Of Resources: UNA ARCE ([id number])[facility] [place] ([facility])[address] [place] [address] [place] Glucose [Mass/Vol] 94 mg/dL Normal 82-115 [facility] Comment on above: Performed By: #### L AB17, [id number], [id number] ####Commissioner Conservation Of Resources: UNA ARCE ([id number])[facility]ENTERMar[facility] ([facility])[address] Potassium [Moles/Vol] 3.4 mmol/L Low 3.5-5.1 [facility] Comment on above: Result Comment: [facility] potassium values may be up to 0.5 mmol/L lower than serum values. Performed By: #### L AB17, [id number], [id number] ####Commissioner Conservation Of Resources: UNA ARCE ([id number])[facility] ([facility])[address] Protein [Mass/Vol] 5.8 g/dL Low 6.4-8.3 [facility] Comment on above: Performed By: #### L AB17, [id number], [id number] ####Commissioner [employer] Of Resources: UNA ARCE ([id number])[facility] ([facility])[address] Sodium [Moles/Vol] 139 mmol/L Normal 136-145 [facility] Comment on above: Performed By: #### L [id number], [id number], [id number] ####Commissioner Conservation Of Resources: UNA ARCE ([phone])[facility] ([facility])[address] Urea nitrogen [Mass/Vol] 37 mg/dL High 9-23 [facility] Comment on above: Performed By: #### L [id number], [id number], [id number] ####Commissioner Conservation Of Resources: UNA ARCE ([id number])[facility] (SBHLAB)[address] Comprehensive metabolic 1998 panelon 04-13-2025 Albumin [Mass/Vol] 2.2 g/dL Low 3.4 - 4.8 g/dL [facility] ALP [Catalytic activity/Vol] 52 U/L 40 - 150 U/L [facility] ALT [Catalytic activity/Vol] U/L NINF - 40 U/L [facility] Anion gap [Moles/Vol] 10 mmol/L 3 - 13 mmol/L [facility] AST [Catalytic activity/Vol] 25 U/L NINF - 34 U/L [facility] Bilirubin [Mass/Vol] 0.6 mg/dL NINF - 1.2 mg/dL [facility] Calcium [Mass/Vol] 8.1 mg/dL Low 8.8 - 10. 0 mg/dL [facility] Chloride [Moles/Vol] 93 mmol/L Low 98 - 10 7 mmol/L [facility] CO2 [Moles/Vol] 36 mmol/L High 23 - 31 mmol/L [facility] Creatinine [Mass/Vol] 1.46 mg/dL High 0.72 - 1.25 mg/dL [facility] GFR/1.73 sq M.predicted (S/P/Bld) [Vol rate/Area] 45.7 mL/min Low - PINF [facility] Glucose [Mass/Vol] 94 mg/dL 82 - 115 mg/dL [facility] Interpretation and review of laboratory results Abnormal [facility] Potassium [Moles/Vol] 3.4 mmol/L Low 3.5 - 5.1 mmol/L [facility] Protein [Mass/Vol] 5.8 g/dL Low 6.4 - 8.3 g/dL [facility] Sodium [Moles/Vol] 139 mmol/L 136 - 145 mmol/L [facility] Urea nitrogen [Mass/Vol] 37 mg/dL High 9 - 23 mg/d L [facility] Laboratory - Chemistry and C hemistry - challengeon 04-13-2025 Base excess Calc (Bld) [Moles/Vol] 11.7 mmol/L High -3.0 - 3.0 mmol/L [facility] CO2 (Bld) [Partial pressure] 59.2 mm[Hg] High [facility] CO2 [Moles/Vol] 39.9 mmol/L High 22.0 - 28.0 mmol/L [facility] HCO3 (Bld) [Moles/Vol] 38.1 mmol/L High 21.0 - 27.0 mmol/L [facility] Oxygen (Bld) [Partial pressure] 79.2 mm[Hg] Low [facility] pH (Bld) 7.426 [pH] 7.350 - 7.450 [facility] Magnesium [Mass/Vol] 1.9 mg/dL 1.6 - 2 .6 mg/dL [facility] Laboratory - Hematology and Cell countson 04-13-2025 Hemoglobin (Bld) [Mass/Vol] 11.3 g/dL Low 13.5 - 17.5 g/dl [facility] Anisocytosis Ql (Bld) Moderate Abnormal (none) [facility] Eosinophils (Bld) [#/Vol] 0.3 10*3/uL 0.0 - 0.5 10*3/uL [facility] Eosinophils/100 WBC (Bld) 2 % 0 - 6 % [facility] Hypochromia Ql (Bld) Slight Abnormal (none) [facility] Lymphocytes (Bld) [#/Vol] 1.9 10*3/uL 1.0 - 4.3 10*3/uL [facility] Lymphocytes/100 WBC (Bld) 15 % 15 - 45 % [facility] Monocytes (Bld) [#/Vol] 0.9 10*3/uL 0.0 - 0.9 10*3/uL [facility] Monocytes/100 WBC (Bld) 7 % 5 - 13 % S [facility] Myelocytes (Bld) [#/Vol] 0.1 10*3/uL High SELENE F - 0.0 10*3/uL [facility] Myelocytes/100 WBC (Bld) 1 % High NINF - 0 % [facility] Neutrophils (Bld) [#/Vol] 9.7 10*3/uL High 1.8 - 7.5 10*3/uL [facility] Poikilocytosis LM Ql (Bld) Slight Abnormal (none) [facility] RBC morphology finding Nom (Bld) abnormal [facility] Segmented neutrophils/100 WBC (Bld) 76 % 38 - 82 % [facility] Stomatocytes LM Ql (Bld) Slight Abnormal (none) [facility] - Microbiology an d Antimicrobial susceptibilityon 04-13-2025 Bacteria identified Aer cx Nom (Unsp spec) No growth at 4 days [facility] - Microbiology an d Antimicrobial susceptibilityOrdered By: Bianca Daigle on 04-13-2025 Bacteria identified Aer cx Nom (Unsp spec) No growth at 4 days [facility] MAGNESIUMon 04-13-2025 Magnesium [Mass/Vol] 1.9 mg/dL Normal 1.6-2.6 [facility] Comment on above: Result Comment: ORDE R COMMENTS:Higher values can be expected in females during menses. Performed By: #### L [id number], [id number], [id number] ####Commissioner Conservation Of Resources: UNA ARCE ([phone])[facility] [place] (SBHLAB)155 [address] [address] MANUAL DIFFERENTIAL (CELLAVI BANDAR)on 04-13-2025 ANISOCYTOSIS PRESENCE IN BLOOD BY LIGHT MICROSCOPY Moderate Abnormal (none) [facility] Comment on above: Performed By: #### L [id number], [id number] ####Commissioner Conservation Of Resources: UNA ARCE ([phone])[facility] [place] ([facility] BAND NEUTROPHILS TOTAL PER COUNTED LEUKOCYTES BY MANUAL COUNT Normal [facility] Comment on above: Performed By: #### L [id number], [id number] ####Commissioner Conservation Of Resources: UNA ARCE ([phone])[facility] [place] ([facility] BASOPHILS TOTAL PER COUNTED LEUKOCYTES BY MANUAL COUNT Normal [facility] Comment on above: Performed By: #### L [id number], [id number] ####Commissioner Conservation Of Resources: UNA ARCE ([phone])[facility] [place] ([facility] BLASTS TOTAL PER COUNTED LEUKOCYTES BY MANUAL COUNT Normal [facility] Comment on above: Performed By: #### L [id number], [id number] ####Commissioner Conservation Of Resources: UAN ARCE ([phone])[facility] [place] ([facility])[address] [place] [address] [place] EOSINOPHILS (10*3/UL) IN BLOOD-CELLAVISION 0.3 10*3/uL Normal 0.0-0.5 [facility] Comment on above: Performed By: #### L [id number], [id number] ####Commissioner Conservation Of Resources: UNA ARCE ([phone])[facility] [place] ([facility])[address] [place] [address] [place] EOSINOPHILS TOTAL PER COUNTED LEUKOCYTES BY MANUAL COUNT 2 High 0-1 [facility] Comment on above: Performed By: #### L [id number], [id number] ####Commissioner Conservation Of Resources: UNA ARCE ([phone])[facility] [place] ([facility])[address] [place] [address] [place] EOSINOPHILS/100 LEUKOCYTES IN BLOOD-CELLAVISION 2 % Normal 0-6 [facility] Comment on above: Performed By: #### L [id number], [id number] ####Commissioner Conservation Of Resources: UNA MOHRCER ([phone])[facility] [place] ([facility])[address] [place] [address] [place] HYPOCHROMIA (PRESENCE) IN BLOOD BY LIGHT MICROSCOPY Slight Abnormal (none) [facility] Comment on above: Performed By: #### L [id number], [id number] ####Commissioner Conservation Of Resources: UNA ARCE ([phone])[facility] ([facility])[address] [place] [address] [place] LYMPHOCYTES (10*3/UL) IN BLOOD-CELLAVISION 1.9 10*3/uL Normal 1.0-4.3 [facility] Comment on above: Performed By: #### L [id number], [id number] ####Commissioner Conservation Of Resources: UNA ARCE ([phone])[facility] [place] ([facility])[address] [place] [address] [place] LYMPHOCYTES TOTAL PER COUNTED LEUKOCYTES BY MANUAL COUNT 15 Normal [facility] Comment on above: Performed By: #### L [id number], [id number] ####Commissioner Conservation Of Resources: UNA ARCE ([phone])[facility] [place] ([facility])[address] [place] [address] [place] LYMPHOCYTES/100 LEUKOCYTES IN BLOOD-CELLAVISION 15 % Normal 15-45 [facility] Comment on above: Performed By: #### L [id number], [id number] ####Commissioner Conservation Of Resources: UNA ARCE ([phone])[facility] [place] (SBHLAB)[address] [place] [address] [place] METAMYELOCYTES TOTAL PER COUNTED LEUKOCYTES BY MANUAL COUNT Normal [facility] Comment on above: Performed By: #### L [id number], [id number] ####Commissioner Conservation Of Resources: UNA ARCE ([id number])[facility] [place] ([facility])[address] [place] [address] [place] MONOCYTES (10*3/UL) IN BLOOD-CELLAVISION 0.9 10*3/uL Normal 0.0-0.9 [facility] Comment on above: Performed By: #### L [id number], [id number] ####Commissioner Conservation Of Resources: UNA ARCE ([phone])[facility] [place] (SBHLAB)[address] [place] [address] [place] MONOCYTES TOTAL PER COUNTED LEUKOCYTES BY MANUAL COUNT 7 Normal [facility] Comment on above: Performed By: #### L [id number], [id number] ####Commissioner Conservation Of Resources: UNA ARCE ([phone])[facility] [place] ([facility])[address] [place] [address] [place] MONOCYTES/100 LEUKOCYTES IN BLOOD-LUCIANA 7 % Normal 5-13 [facility] Comment on above: Performed By: #### L [id number], [id number] ####Commissioner Conservation Of Resources: UNA ARCE ([phone])[facility] [place] ([facility])[address] [place] [address] [place] MYELOCYTES (10*3/UL) IN BLOOD-CELLAVISION 0.1 10*3/uL High <=0.0 [facility] Comment on above: Performed By: #### L [id number], [id number] ####Commissioner Conservation Of Resources: UNA ARCE ([phone])[facility] [place] (SBHLAB)[address] [place] [address] [place] MYELOCYTES COUNTED BY MANUAL COUNT 1 Normal [facility] Comment on above: Performed By: #### L [id number], [id number] ####Commissioner Conservation Of Resources: UNA [phone])[facility] [place] (SBHLAB)[address] [place] [address] [place] MYELOCYTES/100 LEUKOCYTES IN BLOOD-CELLAVISION 1 % High <=0 [facility] Comment on above: Performed By: #### L [id number], [id number] ####Commissioner Conservation Of Resources: UNA ARCE ([phone])[facility] [place] (SBHLAB)[address] [place] [address] [place] NEUTROPHILS TOTAL PER COUNTED LEUKOCYTES BY MANUAL COUNT 77 Normal [facility] Comment on above: Performed By: #### L [id number], [id number] ####Commissioner Conservation Of Resources: UNA ARCE ([phone])[facility] [place] ([facility])[address] [place] [address] [place] POIKILOCYTOSIS (PRESENCE) IN BLOOD BY LIGHT MICROSCOPY Slight Abnormal (none) [facility] Comment on above: Performed By: #### L [id number], [id number] ####Commissioner Conservation Of Resources: UNA ARCE ([phone])[facility] [place] ([facility])[address] [place] [address] [place] PROMYELOCYTES TOTAL PER COUNTED LEUKOCYTES BY MANUAL COUNT [facility] Comment on above: Performed By: #### L [id number], [id number] ####Commissioner Conservation Of Resources: UNA ARCE ([phone])[facility] [place] ([facility])[address] [place] [address] [place] RBC MORPHOLOGY IN BLOOD abnormal Normal S [facility] Comment on above: Performed By: #### L [id number], [id number] ####Commissioner Conservation Of Resources: UNA ARCE ([phone])[facility] [place] ([facility])[address] [place] [address] [place] SEGMENTED NEUTROPHILS (10*3/UL) IN BLOOD-CELLAVISION 9.7 10*3/uL High 1.8-7.5 [facility] Comment on above: Performed By: #### L [id number], [id number] ####Commissioner Conservation Of Resources: UNA ARCE ([phone])[facility] [place] ([facility])[address] SEGMENTED NEUTROPHILS/100 LEUKOCYTES-CE 76 % Normal 38-82 [facility] Comment on above: Performed By: #### L [id number], [id number] ####Commissioner Conservation Of Resources: UNA ARCE ([id number])[facility] (SBHLAB)[address] STOMATOCYTES IN BLOOD BY LIGHT MICROSCOPY Slight Abnormal (none) [facility] Comment on above: Performed By: #### L [id number], [id number] ####Commissioner Conservation Of Resources: UNA ARCE ([phone])[facility] (SB[facility])[address] UNCLASSIFIED CELLS TOTAL PER COUNTED LEUKOCYTES BY MANUAL COUNT Normal [facility] Comment on above: Performed By: #### L [id number], [id number] ####Commissioner Conservation Of Resources: UNA ARCE ([phone])[facility] (SB[facility])[address] VARIANT LYMPHOCYTES TOTAL PER COUNTED LEUKOCYTES BY MANUAL COUNT Normal [facility] Comment on above: Performed By: #### L [id number], [id number] ####Commissioner Conservation Of Resources: UNA ARCE ([phone])[facility] (SBHLAB)[address] Magnesium [Mass/Vol]on 04-13 [facility] No Panel Informationon 04-13 Amount Of Oxygen 2 lpm [facility] Interpretation and review of laboratory results Abnormal [facility] Source Of Oxygen Nasal Cannula (LPM) [facility] Interpretation and review of laboratory results Normal [facility] Eosinophils Manual 2 High 0 - 1 [facility] Interpretation and review of laboratory results Abnormal [facility] Lymphocytes Manual 15 [facility] Monocytes Manual 7 [facility] Myelocytes Manual 1 [facility]alth Neutrophils Manual 77 [facility] PHOSPHORUSon 04-13-2025 Phosphate [Mass/Vol] 2.9 mg/dL Normal 2.3-4.7 [facility] Comment on above: Performed By: #### L AB17, [id number], [id number] ####Commissioner Conservation Of Resources: UNA ARCE ([phone])[facility] (SBAB)[address] [place] [address] Phosphate [Moles/Vol]on Phosphate [Mass/Vol] 2.9 mg/dL 2.3 - 4 .7 mg/dL [facility] Progress Noteon 04-13-2025 Progress Note [facility] Progress Note Normal [facility] Progress Note Normal [facility] Progress Note Normal [facility] XR Chest Single viewon 04-13 Radiology Study observation (narrative) [facility] alth [id number] 04-12-2025 [id number] Normal [facility] [id number] Normal [facility] CBC W Auto Differential pane l (Bld)on 04-12-2025 Erythrocyte distribution width (RBC) [Ratio] 24.3 % High 11.5 - 15.0 % [facility] Hematocrit (Bld) [Volume fraction] 26.8 % Low 40.0 - 52.0 % [facility] Hemoglobin (Bld) [Mass/Vol] 7.4 g/dL Low 13.0 - 18.0 g/dL [facility] MCH (RBC) [Entitic mass] 23.1 pg Low 26. 0 - 34.0 pg [facility] MCHC (RBC) [Mass/Vol] 27.6 % Low 30.5 - 36.0 % [facility] MCV (RBC) [Entitic vol] 83.8 fL 77.0 - 99.0 fL [facility] Platelet mean volume (Bld) [Entitic vol] 9.3 fL 9.0 - 12.7 fL [facility] Platelets (Bld) [#/Vol] 272 10*3/uL 140 - 440 10*3/uL [facility] RBC (Bld) [#/Vol] 3.2 10*6/uL Low 4.40 - 5.9 0 10*6/uL [facility] WBC (Bld) [#/Vol] 12 10*3/uL High 3.6 - 10.7 10*3/uL [facility] CBC WITH AUTO DIFFERENTIALon 04-12-2025 Erythrocyte distribution width (RBC) [Ratio] 24.3 % High 11.5-15.0 [facility] Comment on above: Performed By: #### L [id number], [id number] ####Commissioner Conservation Of Resources: UNA ARCE ([phone])[facility] (SBHLAB)[address] Hematocrit (Bld) [Volume fraction] 26.8 % Low 40.0-52.0 [facility] Comment on above: Performed By: #### L [id number], [id number] ####Commissioner Conservation Of Resources: UNA ARCE ([phone])[facility] (SBAB)[address] Hemoglobin (Bld) [Mass/Vol] 7.4 g/dL Low 13.0-18.0 [facility] Comment on above: Performed By: #### L [id number], [id number] ####Commissioner Conservation Of Resources: UNA ARCE ([phone])[facility] (SBHLAB)[address] MCH (RBC) [Entitic mass] 23.1 pg Low 26.0-34.0 [facility] Comment on above: Performed By: #### L [id number], [id number] ####Commissioner Conservation Of Resources: UNA ARCE ([phone])[facility] (SBHLAB)[address] MCHC 27.6 % Low 30.5-36.0 [facility] Comment on above: Performed By: #### L [id number], [id number] ####Commissioner Conservation Of Resources: UNA ARCE ([phone])[facility] (SBHLAB)[address] MCV (RBC) [Entitic vol] 83.8 fL Normal 77.0-99.0 S [facility] Comment on above: Performed By: #### L [id number], [id number] ####Commissioner Conservation Of Resources: UNA ARCE ([phone])[facility] [place] (SBHLAB)[address] Platelet mean volume (Bld) [Entitic vol] 9.3 fL Normal 9.0-12.7 [facility] Comment on above: Performed By: #### L [id number], [id number] ####Commissioner Conservation Of Resources: UNA ARCE ([phone])[facility] [place] ([facility] Platelets (Bld) [#/Vol] 272 10*3/uL Normal 140-440 [facility] Comment on above: Performed By: #### L [id number], [id number] ####Commissioner Conservation Of Resources: UNA ARCE ([phone])[facility] [place] ([facility])[address] RBC (Bld) [#/Vol] 3.20 10*6/uL Low 4.40-5.90 [facility] Comment on above: Performed By: #### L [id number], [id number] ####Commissioner Conservation Of Resources: UNA ARCE ([id number])[facility] [place] ([facility])[address] WBC (Bld) [#/Vol] 12.0 10*3/uL High 3.6-10.7 [facility] Comment on above: Performed By: #### L [id number], [id number] ####Commissioner Conservation Of Resources: UNA ARCE ([phone])[facility] [place] ([facility])[address] COMPREHENSIVE METABOLIC PANE Anant 04-12-2025 Albumin [Mass/Vol] 2.2 g/dL Low 3.4-4.8 [facility] Comment on above: Performed By: #### L AB17, [id number], [id number] ####Commissioner Conservation Of Resources: UNA ARCE ([phone])[facility] [place] ([facility])[address] [place] [address] [place] ALP [Catalytic activity/Vol] 49 U/L Normal 40-150 [facility] Comment on above: Performed By: #### L AB17, [id number], [id number] ####Commissioner Conservation Of Resources: UNA ARCE ([id number])[facility] [place] (SBHLAB)[address] [place] [address] [place] ALT [Catalytic activity/Vol] U/L Normal <40 [facility] Comment on above: Performed By: #### L AB17, [id number], [id number] ####Commissioner Conservation Of Resources: UNA ARCE ([phone])[facility] [place] ([facility])[address] Anion gap [Moles/Vol] 7 mmol/L Normal 3-13 [facility] Comment on above: Performed By: #### L AB17, [id number], EML989 ####Commissioner Conservation Of Resources: UNA ARCE ([phone])[facility] [place] ([facility])[address] AST [Catalytic activity/Vol] 19 U/L Normal <34 [facility] Comment on above: Performed By: #### L AB17, AQR247, [id number] ####Commissioner Conservation Of Resources: UNA ARCE ([id number])[facility] [place] ([facility])[address] Bilirubin [Mass/Vol] 0.6 mg/dL Normal <1.2 [facility] Comment on above: Performed By: #### L AB17, [id number], [id number] ####Commissioner Conservation Of Resources: UNA ARCE ([phone])[facility] [place] ([facility])[address] [place] [address] [place] Calcium [Mass/Vol] 7.9 mg/dL Low 8.8-10.0 [facility] Comment on above: Performed By: #### L AB17, LRT968, GSV944 ####Commissioner Conservation Of Resources: UNA ARCE ([id number])[facility] [place] ([facility])[address] [place] [address] [place] Chloride [Moles/Vol] 95 mmol/L Low 98-107 [facility] Comment on above: Performed By: #### L AB17, AFC211, [id number] ####Commissioner Conservation Of Resources: UNA ARCE ([phone])[facility] (SBHLAB)[address] CO2 [Moles/Vol] 37 mmol/L High 23-31 [facility] Comment on above: Performed By: #### L AB17, [id number], ENF998 ####Commissioner Conservation Of Resources: UNA ARCE ([id number])[facility] Creatinine [Mass/Vol] 1.53 mg/dL High 0.72-1.25 [facility] Comment on above: Performed By: #### Gilbert AHN17, AAR701, AUK707 ####Commissioner Conservation Of Resources: UNA ARCE ([phone])[facility] ([facility] GLOMERULAR FILTRATION RATE ML/MIN/1.73 SQ M.PREDICTED 43.2 mL/min/1.73m*2 Low >60.0 [facility] Comment on above: Result Comment: Calc ulation based on the Chronic Kidney Disease Epidemiology Collaboration (CKD-EPI) equation refit without adjustment for race Performed By: #### L 17, [id number], [id number] ####Commissioner Conservation Of Resources: UNA ARCE ([phone])[facility] (SBHLAB)[address] Glucose [Mass/Vol] 103 mg/dL Normal 82-115 [facility] Comment on above: Performed By: #### L AB17, [id number], IVQ079 ####Commissioner Conservation Of Resources: UNA ARCE ([phone])[facility] (SBHLAB)[address] Potassium [Moles/Vol] 3.7 mmol/L Normal 3.5-5.1 [facility] Comment on above: Result Comment: Plas ma potassium values may be up to 0.5 mmol/L lower than serum values. Performed By: #### L AB17, [id number], LEG596 ####Commissioner Conservation Of Resources: UNA STAUFFERMELANIE ([phone])[facility] (SBHLAB)[address] Protein [Mass/Vol] 5.6 g/dL Low 6.4-8.3 [facility] Comment on above: Performed By: #### L AB17, KAY281, [id number] ####Commissioner Conservation Of Resources: UNA ARCE ([id number])[facility] (SBHLAB)[address] Sodium [Moles/Vol] 139 mmol/L Normal 136-145 [facility] Comment on above: Performed By: #### L AB17, BAV807, [id number] ####Commissioner Conservation Of Resources: UNA ARCE ([phone])[facility] (SBHLAB)[address] Urea nitrogen [Mass/Vol] 40 mg/dL High 9-23 [facility] Comment on above: Performed By: #### L AB17, MLY485, NWH039 ####Commissioner Conservation Of Resources: UNA BERMUDEZPEDRO ([phone])[facility] (SBHLAB)[address] [place] [address] Comprehensive metabolic 1998 panelon 04-12-2025 Albumin [Mass/Vol] 2.2 g/dL Low 3.4 - 4.8 g/dL [facility] ALP [Catalytic activity/Vol] 49 U/L 40 - 150 U/L [facility] ALT [Catalytic activity/Vol] U/L NINF - 40 U/L [facility] Anion gap [Moles/Vol] 7 mmol/L 3 - 13 mmol/L [facility] AST [Catalytic activity/Vol] 19 U/L NINF - 34 U/L [facility] Bilirubin [Mass/Vol] 0.6 mg/dL NINF - 1.2 mg/dL [facility] Calcium [Mass/Vol] 7.9 mg/dL Low 8.8 - 10. 0 mg/dL [facility] Chloride [Moles/Vol] 95 mmol/L Low 98 - 10 7 mmol/L [facility] CO2 [Moles/Vol] 37 mmol/L High 23 - 31 mmol/L [facility] Creatinine [Mass/Vol] 1.53 mg/dL High 0.72 - 1.25 mg/dL [facility] GFR/1.73 sq M.predicted (S/P/Bld) [Vol rate/Area] 43.2 mL/min Low - PINF [facility] Glucose [Mass/Vol] 103 mg/dL 82 - 115 mg/dL [facility] Interpretation and review of laboratory results Abnormal [facility] Potassium [Moles/Vol] 3.7 mmol/L 3.5 - 5.1 mmol/L [facility] Protein [Mass/Vol] 5.6 g/dL Low 6.4 - 8.3 g/dL [facility] Sodium [Moles/Vol] 139 mmol/L 136 - 145 mmol/L [facility] Urea nitrogen [Mass/Vol] 40 mg/dL High 9 - 23 mg/d L [facility] Consulton 04-12-2025 Consult Normal [facility] Laboratory - Chemistry and C hemistry - challengeon 04-12-2025 Magnesium [Mass/Vol] 2.2 mg/dL 1.6 - 2 .6 mg/dL [facility] Laboratory - Hematology and Cell countson 04-12-2025 Anisocytosis Ql (Bld) Slight Abnormal (none) [facility] Band form neutrophils (Bld) [#/Vol] 0.1 10*3/uL High NINF - 0.0 10*3/uL [facility] Band form neutrophils/100 WBC (Bld) 1 % High NINF - 0 % [facility] Eosinophils (Bld) [#/Vol] 0.8 10*3/uL High 0.0 - 0.5 10*3/uL [facility] Eosinophils/100 WBC (Bld) 7 % High 0 - 6 % [facility] Lymphocytes (Bld) [#/Vol] 0.7 10*3/uL Low 1.0 - 4.3 10*3/uL [facility] Lymphocytes/100 WBC (Bld) 6 % Low 15 - 45 % [facility] Monocytes (Bld) [#/Vol] 0.5 10*3/uL 0.0 - 0.9 10*3/uL [facility] Monocytes/100 WBC (Bld) 4 % Low 5 - 13 % S [facility] Neutrophils (Bld) [#/Vol] 9.8 10*3/uL High 1.8 - 7.5 10*3/uL [facility] RBC morphology finding Nom (Bld) abnormal [facility] Segmented neutrophils/100 WBC (Bld) 81 % 38 - 82 % [facility] MAGNESIUMon 04-12-2025 Magnesium [Mass/Vol] 2.2 mg/dL Normal 1.6-2.6 [facility] Comment on above: Result Comment: YARELI [place] COMMENTS:Higher values can be expected in females during menses. Performed By: #### L AB17, [id number], [id number] ####Commissioner Conservation Of Resources: UNA ARCE ([phone])[facility] [place] ([facility])[address] MANUAL DIFFERENTIAL (CELLAVI BANDAR)on 04-12-2025 ANISOCYTOSIS PRESENCE IN BLOOD BY LIGHT MICROSCOPY Slight Abnormal (none) [facility] Comment on above: Performed By: #### L [id number], [id number] ####Commissioner Conservation Of Resources: UNA ARCE ([phone])[facility] [place] ([facility])[address] BAND NEUTROPHILS TOTAL PER COUNTED LEUKOCYTES BY MANUAL COUNT 1 Normal [facility] Comment on above: Performed By: #### L [id number], [id number] ####Commissioner Conservation Of Resources: UNA ARCE ([phone])[facility] [place] ([facility])[address] BANDS (10*3/UL) IN BLOOD-CELLAVISION 0.1 10*3/uL High <=0.0 [facility] Comment on above: Performed By: #### L [id number], [id number] ####Commissioner Conservation Of Resources: UNA ARCE ([phone])[facility] [place] ([facility])[address] BASOPHILS TOTAL PER COUNTED LEUKOCYTES BY MANUAL COUNT Normal [facility] Comment on above: Performed By: #### L [id number], [id number] ####Commissioner Conservation Of Resources: UNA BERMUDEZPEDRO ([phone])[facility] [place] (SBHLAB)[address] [place] [address] [place] BLASTS TOTAL PER COUNTED LEUKOCYTES BY MANUAL COUNT Normal [facility] Comment on above: Performed By: #### L [id number], [id number] ####Commissioner Conservation Of Resources: UNA YAZMIN ([phone])[facility] [place] ([facility])[address] [place] [address] [place] EOSINOPHILS (10*3/UL) IN BLOOD-CELLAVISION 0.8 10*3/uL High 0.0-0.5 [facility] Comment on above: Performed By: #### L [id number], [id number] ####Commissioner Conservation Of Resources: UNA BERMUDEZPEDRO ([phone])[facility] [place] ([facility])[address] [place] [address] [place] EOSINOPHILS TOTAL PER COUNTED LEUKOCYTES BY MANUAL COUNT 7 High 0-1 [facility] Comment on above: Performed By: #### L [id number], [id number] ####Commissioner Conservation Of Resources: UNA BERMUDEZPEDRO ([phone])[facility] [place] ([facility])[address] [place] [address] [place] EOSINOPHILS/100 LEUKOCYTES IN BLOOD-CELLAVISION 7 % High 0-6 [facility] Comment on above: Performed By: #### L [id number], [id number] ####Commissioner Conservation Of Resources: UNA BERMUDEZPEDRO ([phone])[facility] [place] ([facility])[address] [place] [address] [place] LYMPHOCYTES (10*3/UL) IN BLOOD-CELLAVISION 0.7 10*3/uL Low 1.0-4.3 [facility] Comment on above: Performed By: #### L [id number], [id number] ####Commissioner Conservation Of Resources: UNA BERMUDEZPEDRO ([phone])[facility] [place] (SBHLAB)155 [place] [address] [place] LYMPHOCYTES TOTAL PER COUNTED LEUKOCYTES BY MANUAL COUNT 6 Normal [facility] Comment on above: Performed By: #### L [id number], [id number] ####Commissioner Conservation Of Resources: UNA ARCE ([phone])[facility] (SBHLAB)[address] [place] [address] [place] LYMPHOCYTES/100 LEUKOCYTES IN BLOOD-CELLAVISION 6 % Low 15-45 [facility] Comment on above: Performed By: #### L [id number], [id number] ####Commissioner Conservation Of Resources: UNA ARCE ([phone])[facility] [place] ([facility])[address] [place] [address] [place] METAMYELOCYTES TOTAL PER COUNTED LEUKOCYTES BY MANUAL COUNT Normal [facility] Comment on above: Performed By: #### L [id number], [id number] ####Commissioner Conservation Of Resources: UNA BERMUDEZPEDRO ([phone])[facility] [place] ([facility])[address] [place] [address] [place] MONOCYTES (10*3/UL) IN BLOOD-CELLAVISION 0.5 10*3/uL Normal 0.0-0.9 [facility] Comment on above: Performed By: #### L [id number], [id number] ####Commissioner Conservation Of Resources: UNA ARCE ([phone])[facility] [place] ([facility])[address] [place] [address] [place] MONOCYTES TOTAL PER COUNTED LEUKOCYTES BY MANUAL COUNT 4 Normal [facility] Comment on above: Performed By: #### L [id number], [id number] ####Commissioner Conservation Of Resources: UNA ARCE ([phone])[facility] [place] (SB[facility])[address] [place] [address] [place] MONOCYTES/100 LEUKOCYTES IN BLOOD-LUCIANA 4 % Low 5-13 [facility] Comment on above: Performed By: #### L [id number], [id number] ####Commissioner Conservation Of Resources: UNA STAUFFERMELANIE ([phone])[facility] [place] (SB[facility])[address] [place] [address] [place] MYELOCYTES COUNTED BY MANUAL COUNT Normal [facility] Comment on above: Performed By: #### L [id number], [id number] ####Commissioner Conservation Of Resources: UNA YAZMIN ([id number])[facility] (SBHLAB)[address] [place] [address] [place] NEUTROPHILS BAND FORM/100 LEUKOCYTES IN BLOOD-CELLAVISI 1 % High <=0 [facility] Comment on above: Performed By: #### L [id number], [id number] ####Commissioner Conservation Of Resources: UNA BERMUDEZPEDRO ([phone])[facility] [place] ([facility])[address] [place] [address] [place] NEUTROPHILS TOTAL PER COUNTED LEUKOCYTES BY MANUAL COUNT 83 Normal [facility] Comment on above: Performed By: #### L [id number], [id number] ####Commissioner Conservation Of Resources: UNA BERMUDEZPEDRO ([phone])[facility] [place] (SB[facility])[address] [place] [address] [place] PROMYELOCYTES TOTAL PER COUNTED LEUKOCYTES BY MANUAL COUNT [facility] Comment on above: Performed By: #### L [id number], [id number] ####Commissioner Conservation Of Resources: UNA BERMUDEZPEDRO ([phone])[facility] [place] (SB[facility])[address] [place] [address] [place] RBC MORPHOLOGY IN BLOOD abnormal Normal [facility] Comment on above: Performed By: #### L [id number], [id number] ####Commissioner Conservation Of Resources: UNA STAUFFERMELANIE ([phone])[facility] [place] (SB[facility])[address] [place] [address] [place] SEGMENTED NEUTROPHILS (10*3/UL) IN BLOOD-CELLAVISION 9.8 10*3/uL High 1.8-7.5 [facility] Comment on above: Performed By: #### L [id number], [id number] ####Commissioner Conservation Of Resources: UNA ARCE ([id number])[facility] [place] ([facility])[address] [place] [address] [place] SEGMENTED NEUTROPHILS/100 LEUKOCYTES-CE 81 % Normal 38-82 [facility] Comment on above: Performed By: #### L [id number], [id number] ####Commissioner Conservation Of Resources: UNA ARCE ([id number])[facility] (SBHLAB)[address] UNCLASSIFIED CELLS TOTAL PER COUNTED LEUKOCYTES BY MANUAL COUNT Normal [facility] Comment on above: Performed By: #### L [id number], [id number] ####Commissioner Conservation Of Resources: UNA ARCE ([id number])[facility] (SBHLAB)[address] VARIANT LYMPHOCYTES TOTAL PER COUNTED LEUKOCYTES BY MANUAL COUNT Normal [facility] Comment on above: Performed By: #### L [id number], [id number] ####Commissioner Conservation Of Resources: UNA ARCE ([id number])[facility] [place] (SBHLAB)[address] Magnesium [Mass/Vol]on 04-12 [facility] No Panel Informationon 04-12 Bands Manual 1 [facility] Eosinophils Manual 7 High 0 - 1 [facility] Interpretation and review of laboratory results Abnormal [facility] Lymphocytes Manual 6 [facility] Monocytes Manual 4 [facility] Neutrophils Manual 83 [facility] Interpretation and review of laboratory results Normal [facility] PHOSPHORUSon 04-12-2025 Phosphate [Mass/Vol] 2.7 mg/dL Normal 2.3-4.7 [facility] Comment on above: Performed By: #### L [id number], [id number], [id number] ####Commissioner Conservation Of Resources: UNA ARCE ([phone])[facility] (SBHLAB)[address] [place] [address] [place] Phosphate [Moles/Vol]on Phosphate [Mass/Vol] 2.7 mg/dL 2.3 - 4 .7 mg/dL [facility] Progress Noteon 04-12-2025 Progress Note Normal [facility] Progress Note Normal [facility] Progress Note Normal [facility] Progress Note Normal [facility] Progress Note Normal [facility] CBC W Auto Differential pane l (Bld)on 04-11-2025 Erythrocyte distribution width (RBC) [Ratio] 24.2 % High 11.5 - 15.0 % [facility] Hematocrit (Bld) [Volume fraction] 28.9 % Low 40.0 - 52.0 % [facility] Hemoglobin (Bld) [Mass/Vol] 7.9 g/dL Low 13.0 - 18.0 g/dL [facility] Interpretation and review of laboratory results Abnormal [facility] MCH (RBC) [Entitic mass] 22.7 pg Low 26. 0 - 34.0 pg [facility] MCHC (RBC) [Mass/Vol] 27.3 % Low 30.5 - 36.0 % [facility] MCV (RBC) [Entitic vol] 83 fL 77.0 - 99.0 fL [facility] Platelet mean volume (Bld) [Entitic vol] 9.2 fL 9.0 - 12.7 fL [facility] Platelets (Bld) [#/Vol] 313 10*3/uL 140 - 440 10*3/uL [facility] RBC (Bld) [#/Vol] 3.48 10*6/uL Low 4.40 - 5.9 0 10*6/uL [facility] WBC (Bld) [#/Vol] 13.8 10*3/uL High 3.6 - 10.7 10*3/uL [facility] CBC WITH AUTO DIFFERENTIALon 04-11-2025 Erythrocyte distribution width (RBC) [Ratio] 24.2 % High 11.5-15.0 [facility] Comment on above: Performed By: #### L [id number], [id number] ####Commissioner Conservation Of Resources: UNA ARCE ([phone])[facility] ([facility])[address] [place] [address] Hematocrit (Bld) [Volume fraction] 28.9 % Low 40.0-52.0 [facility] Comment on above: Performed By: #### L [id number], [id number] ####Commissioner Conservation Of Resources: UNA ARCE ([phone])[facility] ([facility])[address] Hemoglobin (Bld) [Mass/Vol] 7.9 g/dL Low 13.0-18.0 [facility] Comment on above: Performed By: #### L [id number], [id number] ####Commissioner Conservation Of Resources: UNA ARCE ([phone])[facility]UR[facility]STIN[facility] (SBHLAB)[address] MCH (RBC) [Entitic mass] 22.7 pg Low 26.0-34.0 [facility] Comment on above: Performed By: #### L [id number], [id number] ####Commissioner Conservation Of Resources: UNA ARCE ([id number])[facility] (SBHLAB)[address] MCHC 27.3 % Low 30.5-36.0 [facility] Comment on above: Performed By: #### L [id number], [id number] ####Commissioner Conservation Of Resources: UNA ARCE ([id number])[facility] SANCHEZCHRISTINAN (SBHLAB)[address] MCV (RBC) [Entitic vol] 83.0 fL Normal 77.0-99.0 S [facility] Comment on above: Performed By: #### L [id number], [id number] ####Commissioner Conservation Of Resources: UNA ARCE ([phone])[facility] (SBHLAB)[address] Platelet mean volume (Bld) [Entitic vol] 9.2 fL Normal 9.0-12.7 [facility] Comment on above: Performed By: #### L [id number], [id number] ####Commissioner Conservation Of Resources: UNA ARCE ([id number])[facility] (SBHLAB)[address] Platelets (Bld) [#/Vol] 313 10*3/uL Normal 140-440 [facility] Comment on above: Performed By: #### L [id number], [id number] ####Commissioner Conservation Of Resources: UNA ARCE ([phone])[facility] (SBHLAB)[address] RBC (Bld) [#/Vol] 3.48 10*6/uL Low 4.40-5.90 [facility] Comment on above: Performed By: #### L [id number], [id number] ####Commissioner Conservation Of Resources: UNA ARCE ([phone])[facility] [place] (SBHLAB)[address] WBC (Bld) [#/Vol] 13.8 10*3/uL High 3.6-10.7 [facility] Comment on above: Performed By: #### L [id number], [id number] ####Commissioner Conservation Of Resources: UNA ARCE ([phone])[facility] BASHIRMarisol (SBHLAB)[address] COMPREHENSIVE METABOLIC PANE Anant 04-11-2025 Albumin [Mass/Vol] 2.4 g/dL Low 3.4-4.8 [facility] Comment on above: Performed By: #### L AB17, [id number], [id number] ####Commissioner Conservation Of Resources: UNA ARCE ([id number])[facility] SANCHEZLUIS (SBHLAB)[address] ALP [Catalytic activity/Vol] 53 U/L Normal 40-150 [facility] Comment on above: Performed By: #### L AB17, [id number], [id number] ####Commissioner Conservation Of Resources: UNA ARCE ([id number])[facility] SANCHEZLUIS (SBHLAB)[address] ALT [Catalytic activity/Vol] U/L Normal <40 [facility] Comment on above: Performed By: #### L AB17, [id number], [id number] ####Commissioner Conservation Of Resources: UNA ARCE ([id number])[facility]ITAL[facility] SANCHEZCARLSBAD MEDICAL CENTERMarisol (SBHLAB)[address] Anion gap [Moles/Vol] 10 mmol/L Normal 3-13 [facility] Comment on above: Performed By: #### L AB17, [id number], [id number] ####Commissioner Conservation Of Resources: UNA ARCE ([id number])LYNETTE BASHIRN (SBHLAB)[address] [place] [address] [place] AST [Catalytic activity/Vol] 18 U/L Normal <34 [facility] Comment on above: Performed By: #### L AB17, [id number], [id number] ####Commissioner Conservation Of Resources: UNA ARCE ([id number])[facility] BASHIRN (SBHLAB)[address] Bilirubin [Mass/Vol] 0.7 mg/dL Normal <1.2 [facility] Comment on above: Performed By: #### L AB17, [id number], [id number] ####Commissioner Conservation Of Resources: UNA ARCE ([phone])[facility] BASHIRN (SBHLAB)[address] Calcium [Mass/Vol] 8.1 mg/dL Low 8.8-10.0 [facility] Comment on above: Performed By: #### L AB17, [id number], [id number] ####Commissioner Conservation Of Resources: UNA ARCE ([phone])[facility] BASHIRN (SBHLAB)[address] [place] [address] [place] Chloride [Moles/Vol] 94 mmol/L Low 98-107 [facility] Comment on above: Performed By: #### L AB17, [id number], [id number] ####Commissioner Conservation Of Resources: UNA ARCE ([id number])[facility] BASHIRN (SBHLAB)[address] [place] [address] [place] CO2 [Moles/Vol] 35 mmol/L High 23-31 [facility] Comment on above: Performed By: #### L AB17, [id number], EZP404 ####Commissioner Conservation Of Resources: UNA ARCE ([id number])[facility] [place] (SBHLAB)[address] [place] [address] [place] Creatinine [Mass/Vol] 1.55 mg/dL High 0.72-1.25 [facility] Comment on above: Performed By: #### L AB17, [id number], [id number] ####Commissioner Conservation Of Resources: UNA ARCE ([id number])[facility] (SBHLAB)[address] GLOMERULAR FILTRATION RATE ML/MIN/1.73 SQ M.PREDICTED 42.5 mL/min/1.73m*2 Low >60.0 [facility] Comment on above: Result Comment: Calc ulation based on the Chronic Kidney Disease Epidemiology Collaboration (CKD-EPI) equation refit without adjustment for race Performed By: #### L AB17, [id number], [id number] ####Commissioner Conservation Of Resources: UNA ARCE ([id number])[facility] (SBHLAB)[address] Glucose [Mass/Vol] 103 mg/dL Normal 82-115 [facility] Comment on above: Performed By: #### L AB17, [id number], [id number] ####Commissioner Conservation Of Resources: UNA ARCE ([id number])[facility] (SBHLAB)[address] Potassium [Moles/Vol] 3.6 mmol/L Normal 3.5-5.1 [facility] Comment on above: Result Comment: [facility] potassium values may be up to 0.5 mmol/L lower than serum values. Performed By: #### L AB17, [id number], DMV750 ####Commissioner Conservation Of Resources: UNA ARCE ([phone])[facility] (SBHLAB)[address] [place] [address] [place] Protein [Mass/Vol] 6.1 g/dL Low 6.4-8.3 [facility] Comment on above: Performed By: #### L AB17, IWT990, [id number] ####Commissioner Conservation Of Resources: UNA ARCE ([phone])[facility] (SBHLAB)[address] Sodium [Moles/Vol] 139 mmol/L Normal 136-145 [facility] Comment on above: Performed By: #### L AB17, [id number], [id number] ####Commissioner Conservation Of Resources: UNA ARCE ([id number])[facility] (SBHLAB)[address] Urea nitrogen [Mass/Vol] 36 mg/dL High 9-23 [facility] Comment on above: Performed By: #### L AB17, [id number], [id number] ####Commissioner Conservation Of Resources: UNA ARCE ([phone])[facility] (SBHLAB)[address] Comprehensive metabolic 1998 panelon 04-11-2025 Albumin [Mass/Vol] 2.4 g/dL Low 3.4 - 4.8 g/dL [facility] ALP [Catalytic activity/Vol] 53 U/L 40 - 150 U/L [facility] ALT [Catalytic activity/Vol] U/L NINF - 40 U/L [facility] Anion gap [Moles/Vol] 10 mmol/L 3 - 13 mmol/L [facility] AST [Catalytic activity/Vol] 18 U/L [facility] - 34 U/L [facility] Bilirubin [Mass/Vol] 0.7 mg/dL NINF - 1.2 mg/dL [facility] Calcium [Mass/Vol] 8.1 mg/dL Low 8.8 - 10. 0 mg/dL [facility] Chloride [Moles/Vol] 94 mmol/L Low 98 - 10 7 mmol/L [facility] CO2 [Moles/Vol] 35 mmol/L High 23 - 31 mmol/L [facility] Creatinine [Mass/Vol] 1.55 mg/dL High 0.72 - 1.25 mg/dL [facility] GFR/1.73 sq M.predicted (S/P/Bld) [Vol rate/Area] 42.5 mL/min Low - PINF [facility] Glucose [Mass/Vol] 103 mg/dL 82 - 115 mg/dL [facility] Interpretation and review of laboratory results Abnormal [facility] Potassium [Moles/Vol] 3.6 mmol/L 3.5 - 5.1 mmol/L [facility] Protein [Mass/Vol] 6.1 g/dL Low 6.4 - 8.3 g/dL [facility] Sodium [Moles/Vol] 139 mmol/L 136 - 145 mmol/L [facility] Urea nitrogen [Mass/Vol] 36 mg/dL High 9 - 23 mg/d L [facility] Laboratory - Chemistry and C hemistry - challengeon 04-11-2025 Magnesium [Mass/Vol] 1.7 mg/dL 1.6 - 2 .6 mg/dL [facility] - Hematology and Cell countson 04-11-2025 Anisocytosis Ql (Bld) Moderate Abnormal (none) [facility] Basophilic stippling LM Ql (Bld) Slight Abnormal (none) [facility] Basophils (Bld) [#/Vol] 0.1 10*3/uL 0.0 - 0.2 10*3/uL [facility] Basophils/100 WBC (Bld) 1 % 0 - 2 % S [facility] Dacrocytes LM Ql (Bld) Rare Abnormal (none) [facility] Eosinophils (Bld) [#/Vol] 0.1 10*3/uL 0.0 - 0.5 10*3/uL [facility] Eosinophils/100 WBC (Bld) 1 % 0 - 6 % [facility] Hypochromia Ql (Bld) Slight Abnormal (none) [facility] Lymphocytes (Bld) [#/Vol] 1.4 10*3/uL 1.0 - 4.3 10*3/uL [facility] Lymphocytes/100 WBC (Bld) 10 % Low 15 - 45 % [facility] Monocytes (Bld) [#/Vol] 1.8 10*3/uL High 0.0 - 0.9 10*3/uL [facility] Monocytes/100 WBC (Bld) 13 % 5 - 13 % S [facility] Neutrophils (Bld) [#/Vol] 10.5 10*3/uL High 1.8 - 7.5 10*3/uL [facility] Ovalocytes LM Ql (Bld) Slight Abnormal (none) [facility] Poikilocytosis LM Ql (Bld) Slight Abnormal (none) [facility] Polychromasia LM Ql (Bld) Slight Abnormal (none) [facility] RBC morphology finding Nom (Bld) abnormal [facility] Segmented neutrophils/100 WBC (Bld) 76 % 38 - 82 % [facility] Stomatocytes LM Ql (Bld) Slight Abnormal (none) [facility] Target cells LM Ql (Bld) Slight Abnormal (none) [facility] MAGNESIUMon 04-11-2025 Magnesium [Mass/Vol] 1.7 mg/dL Normal 1.6-2.6 [facility] Comment on above: Result Comment: ORDE R COMMENTS:Higher values can be expected in females during menses. Performed By: #### L AB17, [id number], [id number] ####Commissioner Conservation Of Resources: UNA ARCE ([phone])[facility] [place] (SB[facility])[address] MANUAL DIFFERENTIAL (CELLAVI BANDAR)on 04-11-2025 ANISOCYTOSIS PRESENCE IN BLOOD BY LIGHT MICROSCOPY Moderate Abnormal (none) [facility] Comment on above: Performed By: #### L [id number], [id number] ####Commissioner Conservation Of Resources: UNA ARCE ([phone])[facility] [place] (SB[facility])[address] BAND NEUTROPHILS TOTAL PER COUNTED LEUKOCYTES BY MANUAL COUNT Normal [facility] Comment on above: Performed By: #### L [id number], [id number] ####Commissioner Conservation Of Resources: UNA ARCE ([phone])[facility] [place] (SB[facility])[address] BASOPHILIC STIPPLING PRESENCE IN BLOOD BY LIGHT MICROSCOPY Slight Abnormal (none) [facility] Comment on above: Performed By: #### L [id number], [id number] ####Commissioner Conservation Of Resources: UNA ARCE ([phone])[facility] [place] ([facility])[address] BASOPHILS (10*3/UL) IN BLOOD-CELLAVISION 0.1 10*3/uL Normal 0.0-0.2 [facility] Comment on above: Performed By: #### L [id number], [id number] ####Commissioner Conservation Of Resources: UNA ARCE ([phone])[facility] [place] (SB[facility])[address] BASOPHILS TOTAL PER COUNTED LEUKOCYTES BY MANUAL COUNT 1 Normal [facility] Comment on above: Performed By: #### L [id number], [id number] ####Commissioner Conservation Of Resources: UNA ARCE ([id number])[facility] [place] (SB[facility])[address] [place] [address] [place] BASOPHILS/100 LEUKOCYTES IN BLOOD-CELLAVISION 1 % Normal 0-2 [facility] Comment on above: Performed By: #### L [id number], [id number] ####Commissioner Conservation Of Resources: UNA ARCE ([id number])[facility] [place] (SB[facility])[address] [place] [address] [place] BLASTS TOTAL PER COUNTED LEUKOCYTES BY MANUAL COUNT Normal [facility] Comment on above: Performed By: #### L [id number], [id number] ####Commissioner Conservation Of Resources: UNA MOHRCER ([id number])[facility] [place] (SB[facility])[address] [place] [address] [place] DACROCYTES PRESENCE IN BLOOD BY LIGHT MICROSCOPY Rare Abnormal (none) [facility] Comment on above: Performed By: #### L [id number], [id number] ####Commissioner Conservation Of Resources: UNA ARCE ([id number])[facility] [place] (SB[facility])[address] [place] [address] [place] EOSINOPHILS (10*3/UL) IN BLOOD-CELLAVISION 0.1 10*3/uL Normal 0.0-0.5 [facility] Comment on above: Performed By: #### L [id number], [id number] ####Commissioner Conservation Of Resources: UNA ARCE ([id number])[facility] [place] (SBHLAB)[address] [place] [address] [place] EOSINOPHILS TOTAL PER COUNTED LEUKOCYTES BY MANUAL COUNT 1 Normal 0-1 [facility] Comment on above: Performed By: #### L [id number], [id number] ####Commissioner Conservation Of Resources: UNA ARCE ([id number])[facility] [place] (SB[facility])[address] [place] [address] [place] EOSINOPHILS/100 LEUKOCYTES IN BLOOD-CELLAVISION 1 % Normal 0-6 [facility] Comment on above: Performed By: #### L [id number], [id number] ####Commissioner Conservation Of Resources: UNA ARCE ([phone])[facility] [place] (SB[facility])[address] HYPOCHROMIA (PRESENCE) IN BLOOD BY LIGHT MICROSCOPY Slight Abnormal (none) [facility] Comment on above: Performed By: #### L [id number], [id number] ####Commissioner Conservation Of Resources: UNA ARCE ([id number])[facility] [place] (SB[facility])[address] [place] [address] [place] LYMPHOCYTES (10*3/UL) IN BLOOD-CELLAVISION 1.4 10*3/uL Normal 1.0-4.3 [facility] Comment on above: Performed By: #### L [id number], [id number] ####Commissioner Conservation Of Resources: UNA ARCE ([phone])[facility] [place] (SB[facility])[address] LYMPHOCYTES TOTAL PER COUNTED LEUKOCYTES BY MANUAL COUNT 10 Normal [facility] Comment on above: Performed By: #### L [id number], [id number] ####Commissioner Conservation Of Resources: UNA ARCE ([id number])[facility] (SBHLAB)[address] [place] [address] [place] LYMPHOCYTES/100 LEUKOCYTES IN BLOOD-CELLAVISION 10 % Low 15-45 [facility] Comment on above: Performed By: #### L [id number], [id number] ####Commissioner Conservation Of Resources: UNA ARCE ([phone])[facility] (SBHLAB)[address] [place] [address] [place] METAMYELOCYTES TOTAL PER COUNTED LEUKOCYTES BY MANUAL COUNT Normal [facility] Comment on above: Performed By: #### L [id number], [id number] ####Commissioner Conservation Of Resources: UNA ARCE ([phone])[facility] [place] (SB[facility])[address] [place] [address] [place] MONOCYTES (10*3/UL) IN BLOOD-CELLAVISION 1.8 10*3/uL High 0.0-0.9 [facility] Comment on above: Performed By: #### L [id number], [id number] ####Commissioner Conservation Of Resources: UNA ARCE ([phone])[facility] [place] (SBHLAB)[address] [place] [address] [place] MONOCYTES TOTAL PER COUNTED LEUKOCYTES BY MANUAL COUNT 13 Normal [facility] Comment on above: Performed By: #### L [id number], [id number] ####Commissioner Conservation Of Resources: UNA MOHRCER ([id number])[facility] [place] (SBHLAB)[address] [place] [address] [place] MONOCYTES/100 LEUKOCYTES IN BLOOD-LUCIANA 13 % Normal 5-13 [facility] Comment on above: Performed By: #### L [id number], [id number] ####Commissioner Conservation Of Resources: UNA MOHRCER ([phone])[facility] [place] ([facility])[address] MYELOCYTES COUNTED BY MANUAL COUNT Normal [facility] Comment on above: Performed By: #### L [id number], [id number] ####Commissioner Conservation Of Resources: UNA ARCE ([phone])[facility] [place] (SBHLAB)[address] [place] [address] [place] NEUTROPHILS TOTAL PER COUNTED LEUKOCYTES BY MANUAL COUNT 79 Normal [facility] Comment on above: Performed By: #### L [id number], [id number] ####Commissioner Conservation Of Resources: UNA ARCE ([id number])[facility] [place] (SB[facility])[address] [place] [address] [place] OVALOCYTES PRESENCE IN BLOOD BY LIGHT MICROSCOPY Slight Abnormal (none) [facility] Comment on above: Performed By: #### L [id number], [id number] ####Commissioner Conservation Of Resources: UNA MOHRCER ([phone])[facility] [place] (SBHLAB)[address] [place] [address] [place] POIKILOCYTOSIS (PRESENCE) IN BLOOD BY LIGHT MICROSCOPY Slight Abnormal (none) [facility] Comment on above: Performed By: #### L [id number], [id number] ####Commissioner Conservation Of Resources: UNA ARCE ([phone])[facility] [place] (SBHLAB)[address] [place] [address] [place] POLYCHROMASIA IN BLOOD BY LIGHT MICROSCOPY Slight Abnormal (none) [facility] Comment on above: Performed By: #### L [id number], [id number] ####Commissioner Conservation Of Resources: UNA ARCE ([id number])[facility] [place] ([facility])[address] [place] [address] [place] PROMYELOCYTES TOTAL PER COUNTED LEUKOCYTES BY MANUAL COUNT Normal [facility] Comment on above: Performed By: #### L [id number], [id number] ####Commissioner Conservation Of Resources: UNA ARCE ([phone])[facility] [place] (SB[facility])[address] [place] [address] [place] RBC MORPHOLOGY IN BLOOD abnormal Normal S [facility] Comment on above: Performed By: #### L [id number], [id number] ####Commissioner Conservation Of Resources: UNA ARCE ([phone])[facility] [place] (SB[facility])[address] [place] [address] [place] SEGMENTED NEUTROPHILS (10*3/UL) IN BLOOD-CELLAVISION 10.5 10*3/uL High 1.8-7.5 [facility] Comment on above: Performed By: #### L [id number], [id number] ####Commissioner Conservation Of Resources: UNA ARCE ([id number])[facility] [place] (SB[facility])[address] [place] [address] [place] SEGMENTED NEUTROPHILS/100 LEUKOCYTES-CE 76 % Normal 38-82 [facility] Comment on above: Performed By: #### L [id number], [id number] ####Commissioner Conservation Of Resources: UNA ARCE ([id number])[facility] [place] (SB[facility])[address] [place] [address] [place] STOMATOCYTES IN BLOOD BY LIGHT MICROSCOPY Slight Abnormal (none) [facility] Comment on above: Performed By: #### L [id number], [id number] ####Commissioner Conservation Of Resources: UNA ARCE ([phone])[facility] [place] (SB[facility])[address] [employer] CELLS IN BLOOD BY LIGHT MICROSCOPY Slight Abnormal (none) [facility] Comment on above: Performed By: #### L [id number], [id number] ####Commissioner Conservation Of Resources: UNA ARCE ([phone])[facility] [place] (SBHLAB)[address] UNCLASSIFIED CELLS TOTAL PER COUNTED LEUKOCYTES BY MANUAL COUNT Normal [facility] Comment on above: Performed By: #### L [id number], [id number] ####Commissioner Conservation Of Resources: UNA ARCE ([id number])[facility] [place] (SBHLAB)[address] VARIANT LYMPHOCYTES TOTAL PER COUNTED LEUKOCYTES BY MANUAL COUNT Normal [facility] Comment on above: Performed By: #### L [id number], [id number] ####Commissioner Conservation Of Resources: UNA ARCE ([id number])[facility] (SBHLAB)[address] Magnesium [Mass/Vol]on 04-11 [facility] No Panel Informationon 04-[address] [facility] Eosinophils Manual 1 0 - 1 [facility] Interpretation and review of laboratory results Abnormal [facility] Lymphocytes Manual 10 [facility] Monocytes Manual 13 [facility]th Neutrophils Manual 79 [facility] Interpretation and review of laboratory results Normal [facility] PHOSPHORUSon 04-11-2025 Phosphate [Mass/Vol] 2.5 mg/dL Normal 2.3-4.7 [facility] Comment on above: Performed By: #### L [id number], [id number], [id number] ####Commissioner Conservation Of Resources: UNA ARCE ([phone])[facility] [place]UR[place]RISTIN[place] (SBHLAB)[address] [place] [address] [place] Phosphate [Moles/Vol]on Phosphate [Mass/Vol] 2.5 mg/dL 2.3 - 4 .7 mg/dL [facility] Progress Noteon 04-11-2025 Progress Note Normal [facility] Progress Note Normal [facility] Progress Note Normal [facility] Progress Note Normal [facility] XR Chest Single viewon 04-11 [facility] RADIOLOGY SYSTEM [facility] RADI[facility] Radiology Study observation (narrative) Lynette ander XR Chest Single viewOrdered By: Katalina Corona on 04-11-2025 [facility] Work Phone: [phone] 04-10-2025 [id number] Normal [facility] CBC W Auto Differential pane l (Bld)on 04-10-2025 Erythrocyte distribution width (RBC) [Ratio] 22.9 % High 11.5 - 15.0 % [facility] Hematocrit (Bld) [Volume fraction] 26.1 % Low 40.0 - 52.0 % [facility] Hemoglobin (Bld) [Mass/Vol] 7.2 g/dL Low 13.0 - 18.0 g/dL [facility] Interpretation and review of laboratory results Abnormal [facility] MCH (RBC) [Entitic mass] 22.6 pg Low 26. 0 - 34.0 pg [facility] MCHC (RBC) [Mass/Vol] 27.6 % Low 30.5 - 36.0 % [facility] MCV (RBC) [Entitic vol] 82.1 fL 77.0 - 99.0 fL [facility] Platelet mean volume (Bld) [Entitic vol] 9.1 fL 9.0 - 12.7 fL [facility] Platelets (Bld) [#/Vol] 294 10*3/uL 140 - 440 10*3/uL [facility] RBC (Bld) [#/Vol] 3.18 10*6/uL Low 4.40 - 5.9 0 10*6/uL [facility] WBC (Bld) [#/Vol] 12.4 10*3/uL High 3.6 - 10.7 10*3/uL [facility] CBC WITH AUTO DIFFERENTIALon 04-10-2025 Erythrocyte distribution width (RBC) [Ratio] 22.9 % High 11.5-15.0 [facility] Comment on above: Performed By: #### L [id number], [id number] ####Commissioner Conservation Of Resources: UNA ARCE ([id number])[facility] [place] (SBAB)[address] Hematocrit (Bld) [Volume fraction] 26.1 % Low 40.0-52.0 [facility] Comment on above: Performed By: #### L [id number], [id number] ####Commissioner Conservation Of Resources: UNA ARCE ([phone])[place] (SBHLAB)[address] Hemoglobin (Bld) [Mass/Vol] 7.2 g/dL Low 13.0-18.0 [facility] Comment on above: Performed By: #### L [id number], [id number] ####Commissioner Conservation Of Resources: UNA ARCE ([phone])[facility] [place] (SBHLAB)[address] MCH (RBC) [Entitic mass] 22.6 pg Low 26.0-34.0 [facility] Comment on above: Performed By: #### L [id number], [id number] ####Commissioner Conservation Of Resources: UNA ARCE ([phone])[facility] [place] (SBHLAB)[address] MCHC 27.6 % Low 30.5-36.0 [facility] Comment on above: Performed By: #### L [id number], [id number] ####Commissioner Conservation Of Resources: UNA ARCE ([phone])[facility] [place] (SBHLAB)[address] MCV (RBC) [Entitic vol] 82.1 fL Normal 77.0-99.0 [facility] Comment on above: Performed By: #### L [id number], [id number] ####Commissioner Conservation Of Resources: UNA ARCE ([phone])[facility]ITAL[facility] BARBCARLSBAD MEDICAL CENTERMarisol (SBHLAB)[address] Platelet mean volume (Bld) [Entitic vol] 9.1 fL Normal 9.0-12.7 [facility] Comment on above: Performed By: #### L [id number], [id number] ####Commissioner Conservation Of Resources: UNA ARCE ([id number])LYNETTE SANCHEZCHRISTINAN (SBHLAB)[address] Platelets (Bld) [#/Vol] 294 10*3/uL Normal 140-440 [facility] Comment on above: Performed By: #### L [id number], [id number] ####Commissioner Conservation Of Resources: UNA ARCE ([id number])[facility] [place] (SBHLAB)[address] RBC (Bld) [#/Vol] 3.18 10*6/uL Low 4.40-5.90 [facility] Comment on above: Performed By: #### L [id number], [id number] ####Commissioner Conservation Of Resources: UNA ARCE ([phone])[facility] [place] (SBHLAB)[address] WBC (Bld) [#/Vol] 12.4 10*3/uL High 3.6-10.7 [facility] Comment on above: Performed By: #### L [id number], [id number] ####Commissioner Conservation Of Resources: UNA ARCE ([phone])[facility] BASHIRN (SBHLAB)[address] COMPREHENSIVE METABOLIC PANE Anant 04-10-2025 Albumin [Mass/Vol] 2.2 g/dL Low 3.4-4.8 [facility] Comment on above: Performed By: #### L ABTerrance, LAB17, [id number] ####Commissioner Conservation Of Resources: UNA ARCE ([phone])[facility] [place] (SB[facility])[address] ALP [Catalytic activity/Vol] 50 U/L Normal 40-150 [facility] Comment on above: Performed By: #### L AB113, LAB17, [id number] ####Commissioner Conservation Of Resources: UNA ARCE ([phone])[facility] [place] (SB[facility])[address] ALT [Catalytic activity/Vol] U/L Normal <40 [facility] Comment on above: Performed By: #### L ABTerrance, LAB17, [id number] ####Commissioner Conservation Of Resources: UNA ARCE ([phone])[facility] [place] (SB[facility])[address] Anion gap [Moles/Vol] 12 mmol/L Normal 3-13 [facility] Comment on above: Performed By: #### Gilbert ABTerrance, LAB17, [id number] ####Commissioner Conservation Of Resources: UNA ARCE ([id number])[facility] [place] (SB[facility])[address] AST [Catalytic activity/Vol] 16 U/L Normal <34 [facility] Comment on above: Performed By: #### Gilbert ABTerrance, LAB17, [id number] ####Commissioner Conservation Of Resources: UNA ARCE ([id number])[facility] [place] (SB[facility]AB)[address] Bilirubin [Mass/Vol] 0.6 mg/dL Normal <1.2 [facility] Comment on above: Performed By: #### Gilbert RAMSEY, LAB17, [id number] ####Commissioner Conservation Of Resources: UNA ARCE ([phone])[facility] [place] (SB[facility])[address] Calcium [Mass/Vol] 8.0 mg/dL Low 8.8-10.0 [facility] Comment on above: Performed By: #### Gilbert RAMSEY, LAB17, [id number] ####Commissioner Conservation Of Resources: UNA ARCE ([phone])[facility] [place] (SB[facility])[address] [place] [address] [place] Chloride [Moles/Vol] 95 mmol/L Low 98-107 [facility] Comment on above: Performed By: #### L ABTerrance, LAB17, [id number] ####Commissioner Conservation Of Resources: UNA ARCE ([phone])[facility] [place] (SB[facility]AB)[address] [place] [address] [place] CO2 [Moles/Vol] 35 mmol/L High 23-31 [facility] Comment on above: Performed By: #### L AB113, LAB17, [id number] ####Commissioner Conservation Of Resources: UNA ARCE ([phone])[facility] B[place]N (SBHLAB)[address] Creatinine [Mass/Vol] 1.65 mg/dL High 0.72-1.25 [facility] Comment on above: Performed By: #### L ABTerrance, LAB17, [id number] ####Commissioner Conservation Of Resources: UNA ARCE ([phone])[facility] [place] (SBHLAB)[address] GLOMERULAR FILTRATION RATE ML/MIN/1.73 SQ M.PREDICTED 39.4 mL/min/1.73m*2 Low >60.0 [facility] Comment on above: Result Comment: Calc ulation based on the Chronic Kidney Disease Epidemiology Collaboration (CKD-EPI) equation refit without adjustment for race Performed By: #### Gilbert ABTerrance, LAB17, [id number] ####Commissioner Conservation Of Resources: UNA ARCE ([phone])[facility] [place] (SBHLAB)[address] Glucose [Mass/Vol] 98 mg/dL Normal 82-115 [facility] Comment on above: Performed By: #### Gilbert AB113, LAB17, [id number] ####Commissioner Conservation Of Resources: UNA ARCE ([phone])[facility] SANC[facility]ZCHRISTINAN (SBHLAB)[address] [place] [address] [place] Potassium [Moles/Vol] 3.2 mmol/L Low 3.5-5.1 [facility] Comment on above: Result Comment: [facility] potassium values may be up to 0.5 mmol/L lower than serum values. Performed By: #### L AB113, LAB17, [id number] ####Commissioner Conservation Of Resources: UNA ARCE ([phone])[facility] [place] (SBHLAB)[address] Protein [Mass/Vol] 5.5 g/dL Low 6.4-8.3 [facility] Comment on above: Performed By: #### L AB113, LAB17, [id number] ####Commissioner Conservation Of Resources: UNA YAZMIN ([phone])[facility] [place] (SBHLAB)[address] Sodium [Moles/Vol] 142 mmol/L Normal 136-145 [facility] Comment on above: Performed By: #### Gilbert ABTerrance, LAB17, [id number] ####Commissioner Conservation Of Resources: UNA YAZMIN ([phone])[facility] SANCHEZCARLSBAD MEDICAL CENTERN (SBHLAB)[address] Urea nitrogen [Mass/Vol] 32 mg/dL High 9-23 [facility] Comment on above: Performed By: #### Gilbert RAMSEY, LAB17, [id number] ####Commissioner Conservation Of Resources: UNA ARCE ([phone])[facility]ZBAN[facility] (SBHLAB)[address] Comprehensive metabolic 1998 panelon 04-10-2025 Albumin [Mass/Vol] 2.2 g/dL Low 3.4 - 4.8 g/dL [facility] ALP [Catalytic activity/Vol] 50 U/L 40 - 150 U/L [facility] ALT [Catalytic activity/Vol] U/L [facility] - [facility] U/L [facility] Anion gap [Moles/Vol] 12 mmol/L 3 - 13 mmol/L [facility] AST [Catalytic activity/Vol] 16 U/L [facility] - 34 U/L [facility] Bilirubin [Mass/Vol] 0.6 mg/dL NINF - 1.2 mg/dL [facility] Calcium [Mass/Vol] 8 mg/dL Low 8.8 - 10. 0 mg/dL [facility] Chloride [Moles/Vol] 95 mmol/L Low 98 - 10 7 mmol/L [facility] CO2 [Moles/Vol] 35 mmol/L High 23 - 31 mmol/L [facility] Creatinine [Mass/Vol] 1.65 mg/dL High 0.72 - 1.25 mg/dL [facility] GFR/1.73 sq M.predicted (S/P/Bld) [Vol rate/Area] 39.4 mL/min Low - PINF [facility] Glucose [Mass/Vol] 98 mg/dL 82 - 115 mg/dL [facility] Interpretation and review of laboratory results Abnormal [facility] Potassium [Moles/Vol] 3.2 mmol/L Low 3.5 - 5.1 mmol/L [facility] Protein [Mass/Vol] 5.5 g/dL Low 6.4 - 8.3 g/dL [facility] Sodium [Moles/Vol] 142 mmol/L 136 - 145 mmol/L [facility] Urea nitrogen [Mass/Vol] 32 mg/dL High 9 - 23 mg/d L [facility] Laboratory - Chemistry and C hemistry - challengeon 04-10-2025 Magnesium [Mass/Vol] 1.7 mg/dL 1.6 - 2 .6 mg/dL [facility] Laboratory - Hematology and Cell countson 04-10-2025 Anisocytosis Ql (Bld) Slight Abnormal (none) [facility] Band form neutrophils (Bld) [#/Vol] 0.2 10*3/uL High NINF - 0.0 10*3/uL [facility] Band form neutrophils/100 WBC (Bld) 2 % High NINF - 0 % [facility] Basophils (Bld) [#/Vol] 0.5 10*3/uL High 0.0 - 0.2 10*3/uL [facility] Basophils/100 WBC (Bld) 4 % High 0 - 2 % [facility] Eosinophils (Bld) [#/Vol] 0.5 10*3/uL 0.0 - 0.5 10*3/uL [facility] Eosinophils/100 WBC (Bld) 4 % 0 - 6 % [facility] Lymphocytes (Bld) [#/Vol] 0.9 10*3/uL Low 1.0 - 4.3 10*3/uL [facility] Lymphocytes/100 WBC (Bld) 7 % Low 15 - 45 % [facility] Monocytes (Bld) [#/Vol] 0.5 10*3/uL 0.0 - 0.9 10*3/uL [facility] Monocytes/100 WBC (Bld) 4 % Low 5 - 13 % S [facility] Myelocytes (Bld) [#/Vol] 0.1 10*3/uL High SELENE F - 0.0 10*3/uL [facility] Myelocytes/100 WBC (Bld) 1 % High NINF - 0 % [facility] Neutrophils (Bld) [#/Vol] 9.9 10*3/uL High 1.8 - 7.5 10*3/uL [facility] Poikilocytosis LM Ql (Bld) Slight Abnormal (none) [facility] RBC morphology finding Nom (Bld) abnormal [facility] Segmented neutrophils/100 WBC (Bld) 78 % 38 - 82 % [facility] Stomatocytes LM Ql (Bld) Moderate Abnormal (none) [facility] MAGNESIUMon 04-10-2025 Magnesium [Mass/Vol] 1.7 mg/dL Normal 1.6-2.6 [facility] Comment on above: Result Comment: YARELI R COMMENTS:Higher values can be expected in females during menses. Performed By: #### L AB113, LAB17, [id number] ####Commissioner Conservation Of Resources: UNA ARCE ([phone])[facility] ([facility])[address] [place] [address] MANUAL DIFFERENTIAL (CELLAVI BANDAR)on 04-10-2025 ANISOCYTOSIS PRESENCE IN BLOOD BY LIGHT MICROSCOPY Slight Abnormal (none) [facility] Comment on above: Performed By: #### L [id number], [id number] ####Commissioner Conservation Of Resources: UNA ARCE ([phone])[facility] [place] [address] BAND NEUTROPHILS TOTAL PER COUNTED LEUKOCYTES BY MANUAL COUNT 2 Normal [facility] Comment on above: Performed By: #### L [id number], [id number] ####Commissioner Conservation Of Resources: UNA ARCE ([phone])[facility]BCARLSBAD [facility]ERN ([facility])[address] [place] [address] [place] BANDS (10*3/UL) IN BLOOD-CELLAVISION 0.2 10*3/uL High <=0.0 [facility] Comment on above: Performed By: #### L [id number], [id number] ####Commissioner Conservation Of Resources: UNA ARCE ([phone])[facility] ([facility])[address] [place] [address] [place] BASOPHILS (10*3/UL) IN BLOOD-CELLAVISION 0.5 10*3/uL High 0.0-0.2 [facility] Comment on above: Performed By: #### L [id number], [id number] ####Commissioner Conservation Of Resources: UNA ARCE ([phone])[facility] [place] (SBHLAB)[address] [place] [address] [place] BASOPHILS TOTAL PER COUNTED LEUKOCYTES BY MANUAL COUNT 4 Normal [facility] Comment on above: Performed By: #### L [id number], [id number] ####Commissioner Conservation Of Resources: UNA ARCE ([phone])[facility] [place] (SB[facility])[address] [place] [address] [place] BASOPHILS/100 LEUKOCYTES IN BLOOD-CELLAVISION 4 % High 0-2 [facility] Comment on above: Performed By: #### L [id number], [id number] ####Commissioner Conservation Of Resources: UNA ARCE ([phone])[facility] [place] (SBHLAB)[address] BLASTS TOTAL PER COUNTED LEUKOCYTES BY MANUAL COUNT [facility] Comment on above: Performed By: #### L [id number], [id number] ####Commissioner Conservation Of Resources: UNA ARCE ([phone])[facility] [place] (SB[facility])[address] [place] [address] [place] EOSINOPHILS (10*3/UL) IN BLOOD-CELLAVISION 0.5 10*3/uL Normal 0.0-0.5 [facility] Comment on above: Performed By: #### L [id number], [id number] ####Commissioner Conservation Of Resources: UNA ARCE ([id number])[facility] [place] (SB[facility])[address] [place] [address] [place] EOSINOPHILS TOTAL PER COUNTED LEUKOCYTES BY MANUAL COUNT High 0-1 [facility] Comment on above: Performed By: #### L [id number], [id number] ####Commissioner Conservation Of Resources: UNA ARCE ([phone])[facility] [place] (SB[facility])[address] [place] [address] [place] EOSINOPHILS/100 LEUKOCYTES IN BLOOD-CELLAVISION 4 % Normal 0-6 [facility] Comment on above: Performed By: #### L [id number], [id number] ####Commissioner Conservation Of Resources: UNA ARCE ([phone])[facility] [place] (SB[facility])[address] LYMPHOCYTES (10*3/UL) IN BLOOD-CELLAVISION 0.9 10*3/uL Low 1.0-4.3 [facility] Comment on above: Performed By: #### L [id number], [id number] ####Commissioner Conservation Of Resources: UNA ARCE ([id number])[facility] [place] (SB[facility])[address] LYMPHOCYTES TOTAL PER COUNTED LEUKOCYTES BY MANUAL COUNT 7 Normal [facility] Comment on above: Performed By: #### L [id number], [id number] ####Commissioner Conservation Of Resources: UNA ARCE ([phone])[facility] [place] (SB[facility])[address] [place] [address] [place] LYMPHOCYTES/100 LEUKOCYTES IN BLOOD-CELLAVISION 7 % Low 15-45 [facility] Comment on above: Performed By: #### L [id number], [id number] ####Commissioner Conservation Of Resources: UNA ARCE ([phone])[facility]ERN (SBHLAB)[address] METAMYELOCYTES TOTAL PER COUNTED LEUKOCYTES BY MANUAL COUNT [facility] Comment on above: Performed By: #### L [id number], [id number] ####Commissioner Conservation Of Resources: UNA ARCE ([phone])[facility] [place] (SB[facility])[address] [place] [address] [place] MONOCYTES (10*3/UL) IN BLOOD-CELLAVISION 0.5 10*3/uL Normal 0.0-0.9 [facility] Comment on above: Performed By: #### L [id number], [id number] ####Commissioner Conservation Of Resources: UNA ARCE ([phone])[facility] [place] (SBHLAB)[address] [place] [address] [place] MONOCYTES TOTAL PER COUNTED LEUKOCYTES BY MANUAL COUNT 4 Normal [facility] Comment on above: Performed By: #### L [id number], [id number] ####Commissioner Conservation Of Resources: UNA ARCE ([phone])[facility] [place] (SBHLAB)[address] [place] [address] [place] MONOCYTES/100 LEUKOCYTES IN BLOOD-LUCIANA 4 % Low 5-13 [facility] Comment on above: Performed By: #### L [id number], [id number] ####Commissioner Conservation Of Resources: UNA ARCE ([id number])[facility] [place] (SBHLAB)[address] [place] [address] [place] MYELOCYTES (10*3/UL) IN BLOOD-CELLAVISION 0.1 10*3/uL High <=0.0 [facility] Comment on above: Performed By: #### L [id number], [id number] ####Commissioner Conservation Of Resources: UNA ARCE ([id number])[facility] [place] (SBHLAB)[address] [place] [address] [place] MYELOCYTES COUNTED BY MANUAL COUNT 1 Normal [facility] Comment on above: Performed By: #### L [id number], [id number] ####Commissioner Conservation Of Resources: UNA ARCE ([phone])[facility] [place] ([facility])[address] [place] [address] [place] MYELOCYTES/100 LEUKOCYTES IN BLOOD-CELLAVISION 1 % High <=0 [facility] Comment on above: Performed By: #### L [id number], [id number] ####Commissioner Conservation Of Resources: UNA ARCE ([phone])[facility] [place] (SBHLAB)[address] [place] [address] [place] NEUTROPHILS BAND FORM/100 LEUKOCYTES IN BLOOD-CELLAVISI 2 % High <=0 [facility] Comment on above: Performed By: #### L [id number], [id number] ####Commissioner Conservation Of Resources: UNA ARCE ([phone])[facility] [place] (SBHLAB)[address] [place] [address] [place] NEUTROPHILS TOTAL PER COUNTED LEUKOCYTES BY MANUAL COUNT 79 Normal [facility] Comment on above: Performed By: #### L [id number], [id number] ####Commissioner Conservation Of Resources: UNA ARCE ([phone])[facility] [place] ([facility])[address] [place] [address] [place] POIKILOCYTOSIS (PRESENCE) IN BLOOD BY LIGHT MICROSCOPY Slight Abnormal (none) [facility] Comment on above: Performed By: #### L [id number], [id number] ####Commissioner Conservation Of Resources: UNA ARCE ([phone])[facility] [place] ([facility])[address] PROMYELOCYTES TOTAL PER COUNTED LEUKOCYTES BY MANUAL COUNT Normal [facility] Comment on above: Performed By: #### L [id number], [id number] ####Commissioner Conservation Of Resources: UNA ARCE ([phone])[facility] [place] ([facility])[address] [place] [address] [place] RBC MORPHOLOGY IN BLOOD abnormal Normal S [facility] Comment on above: Performed By: #### L [id number], [id number] ####Commissioner Conservation Of Resources: UNA ARCE ([id number])[facility] [place] (SB[facility])[address] [place] [address] [place] SEGMENTED NEUTROPHILS (10*3/UL) IN BLOOD-CELLAVISION 9.9 10*3/uL High 1.8-7.5 [facility] Comment on above: Performed By: #### L [id number], [id number] ####Commissioner Conservation Of Resources: UNA ARCE ([phone])[facility] [place] (SB[facility])[address] [place] [address] [place] SEGMENTED NEUTROPHILS/100 LEUKOCYTES-CE 78 % Normal 38-82 [facility] Comment on above: Performed By: #### L [id number], [id number] ####Commissioner Conservation Of Resources: UNA ARCE ([phone])[facility] [place] (SB[facility])[address] [place] [address] [place] STOMATOCYTES IN BLOOD BY LIGHT MICROSCOPY Moderate Abnormal (none) [facility] Comment on above: Performed By: #### L [id number], [id number] ####Commissioner Conservation Of Resources: UNA ARCE ([id number])[facility] (SBHLAB)[address] UNCLASSIFIED CELLS TOTAL PER COUNTED LEUKOCYTES BY MANUAL COUNT Normal [facility] Comment on above: Performed By: #### L [id number], [id number] ####Commissioner Conservation Of Resources: UNA ARCE ([phone])[facility] (HLAB)[address] VARIANT LYMPHOCYTES TOTAL PER COUNTED LEUKOCYTES BY MANUAL COUNT Normal [facility] Comment on above: Performed By: #### L [id number], [id number] ####Commissioner Conservation Of Resources: UNA ARCE ([phone])[facility] (HLAB)[address] [place] [address] [place] Magnesium [Mass/Vol]on 04-10 [facility] No Panel Informationon 04-10 Bands Manual 2 [facility] Basophils Manual 4 [facility] Eosinophils Manual 4 High 0 - 1 [facility] Interpretation and review of laboratory results Abnormal [facility] Lymphocytes Manual 7 [facility] Monocytes Manual [address] [facility] Myelocytes Manual [address] [facility] H ealth Neutrophils Manual 79 [facility] Interpretation and review of laboratory results Normal [facility] PHOSPHORUSon 04-10-2025 Phosphate [Mass/Vol] 2.6 mg/dL Normal 2.3-4.7 [facility] Comment on above: Performed By: #### L AB113, LAB17, [id number] ####Commissioner Conservation Of Resources: UNA ARCE ([phone])[facility] (SBHLAB)[address] [place] [address] [place] Phosphate [Moles/Vol]on Phosphate [Mass/Vol] 2.6 mg/dL 2.3 - 4 .7 mg/dL [facility] Progress Noteon 04-10-2025 Progress Note Normal [facility] Progress Note Normal [facility] Progress Note Normal [facility] Progress Note Will assume care as patient is being transferred out of ICU. D/w Dr Lewis via secure chat Normal [facility] Progress Note Normal [facility] Progress Note Normal [facility] [id number] 04-09-[id number] [facility] [id number] Normal [facility] BODY FLUID CELL COUNT WITH R EFLEX DIFFon 04-09-2025 RBC, BODY FLUID (AUTOMATED) <0.002 High 0.000 [facility] Comment on above: Performed By: #### L [id number], [id number] ####Commissioner Conservation Of Resources: UNA ARCE ([id number])[facility] (SBHLAB)[address] [place] [address] WBC, BODY FLUID (AUTOMATED) 0.341 x10*3/ul High <=0.005 [facility] Comment on above: Performed By: #### L [id number], [id number] ####Commissioner Conservation Of Resources: UNA ARCE ([phone])[facility] (SBHLAB)[address] [place] [address] RBC, BODY FLUID (AUTOMATED) <0.002 High 0.000 [facility] Comment on above: Performed By: #### L [id number], [id number] ####Commissioner Conservation Of Resources: UNA ARCE ([phone])[facility] (SBHLAB)[address] [place] [address] WBC, BODY FLUID (AUTOMATED) 0.112 x10*3/ul High <=0.005 [facility] Comment on above: Performed By: #### L [id number], [id number] ####Commissioner Conservation Of Resources: UNA ARCE ([phone])[facility] (SBHLAB)[address] [place] [address] BODY FLUID DIFFERENTIALon CELLS COUNTED TOTAL (#) IN BODY FLUID 100 Normal [facility] Comment on above: Performed By: #### L [id number], [id number] ####Commissioner Conservation Of Resources: UNA ARCE ([id number])[facility] [place] (SBHLAB)[address] [place] [address] [place] LYMPHOCYTES/100 LEUKOCYTES IN BODY FLUID BY MAN CT 51 % Normal [facility] Comment on above: Performed By: #### L [id number], [id number] ####Commissioner Conservation Of Resources: UNA ARCE ([id number])[facility] [place] (SBHLAB)[address] [place] [address] [place] MONOCYTES+MACROPHAGES/10 0 WBC IN BODY FLUID BY MAN CT 36 % Normal [facility] Comment on above: Performed By: #### L [id number], XMC801 ####Commissioner Conservation Of Resources: UNA ARCE ([phone])[facility] [place] (SBHLAB)[address] [place] [address] [place] Neutrophils/100 WBC (Bld) 13 % Normal [facility] Comment on above: Performed By: #### L [id number], [id number] ####Commissioner Conservation Of Resources: UNA ARCE ([id number])[facility] [place] (SBHLAB)[address] [place] [address] [place] CELLS COUNTED TOTAL (#) IN BODY FLUID 100 Normal [facility] Comment on above: Performed By: #### L [id number], [id number] ####Commissioner Conservation Of Resources: UNA ARCE ([id number])[facility] [place] (SBHLAB)[address] [place] [address] [place] LYMPHOCYTES/100 LEUKOCYTES IN BODY FLUID BY MAN CT 31 % Normal [facility] Comment on above: Performed By: #### L [id number], VIS756 ####Commissioner Conservation Of Resources: UNA ARCE ([phone])[facility] [place] (SBHLAB)[address] [place] [address] [place] MESOTHELIAL CELLS/100 LEUKOCYTES IN BODY FLUID BY MANUAL COUNT 2 % Normal [facility] Comment on above: Performed By: #### L [id number], [id number] ####Commissioner Conservation Of Resources: UNA ARCE ([phone])[facility] [place] (SBHLAB)[address] MONOCYTES+MACROPHAGES/10 0 WBC IN BODY FLUID BY MAN CT 37 % Normal [facility] Comment on above: Performed By: #### L [id number], [id number] ####Commissioner Conservation Of Resources: UNA ARCE ([phone])[facility]ACARLSBAD [facility]ENTERN (SBHLAB)[address] Neutrophils/100 WBC (Bld) 30 % Normal [facility] Comment on above: Performed By: #### L [id number], [id number] ####Commissioner Conservation Of Resources: UNA ARCE ([phone])[facility] (SBHLAB)[address] CBC W Auto Differential pane l (Bld)Ordered By: Jg Sarabia on 04-09-2025 Erythrocyte distribution width (RBC) [Ratio] 21.8 % High 11.5 - 15.0 % [facility] Hematocrit (Bld) [Volume fraction] 27.7 % Low 40.0 - 52.0 % [facility] Hemoglobin (Bld) [Mass/Vol] 7.5 g/dL Low 13.0 - 18.0 g/dL [facility] MCH (RBC) [Entitic mass] 22.6 pg Low 26. 0 - 34.[address] [facility] MCHC (RBC) [Mass/Vol] 27.1 % Low 30.5 - 36.0 % [facility] MCV (RBC) [Entitic vol] 83.4 fL 77.0 - 99.[address] [facility] Platelet mean volume (Bld) [Entitic vol] 9.4 fL 9.0 - 12.[address] [facility] Platelets (Bld) [#/Vol] 279 10*3/uL 140 - 440 10*3/uL [facility] RBC (Bld) [#/Vol] 3.32 10*6/uL Low 4.40 - 5.9 0 10*6/uL [facility] WBC (Bld) [#/Vol] 11.2 10*3/uL High 3.6 - 10.7 10*3/uL [facility] CBC WITH AUTO DIFFERENTIALon 04-09-2025 Erythrocyte distribution width (RBC) [Ratio] 21.8 % High 11.5-15.0 [facility] Comment on above: Performed By: #### L [id number], [id number] ####Commissioner Conservation Of Resources: UNA ARCE ([phone])LYNETTE SACNHEZLUIS (SBHLAB)[address] Hematocrit (Bld) [Volume fraction] 27.7 % Low 40.0-52.0 [facility] Comment on above: Performed By: #### L [id number], [id number] ####Commissioner Conservation Of Resources: UNA ARCE ([phone])[facility]ITAL[facility]UTEM[facility] (SBHLAB)[address] Hemoglobin (Bld) [Mass/Vol] 7.5 g/dL Low 13.0-18.0 [facility] Comment on above: Performed By: #### L [id number], [id number] ####Commissioner Conservation Of Resources: UNA ARCE ([phone])[facility]ITAL[facility] SANCHEZCHRISTINAN (SBHLAB)[address] MCH (RBC) [Entitic mass] 22.6 pg Low 26.0-34.0 [facility] Comment on above: Performed By: #### L [id number], [id number] ####Commissioner Conservation Of Resources: UNA ARCE ([id number])[facility]ITALAngel SANCHEZCARLSBAD MEDICAL CENTERMarisol (SBHLAB)[address] MCHC 27.1 % Low 30.5-36.0 [facility] Comment on above: Performed By: #### L [id number], [id number] ####Commissioner Conservation Of Resources: UNA ARCE ([id number])[facility]ITALAngel [facility]ZCARLSBAD [facility] CENTERN (SBHLAB)[address] MCV (RBC) [Entitic vol] 83.4 fL Normal 77.0-99.0 S [facility] Comment on above: Performed By: #### L [id number], [id number] ####Commissioner Conservation Of Resources: UNA ARCE ([id number])[facility] LAURACHRISTINAN (SBHLAB)[address] Platelet mean volume (Bld) [Entitic vol] 9.4 fL Normal 9.0-12.7 [facility] Comment on above: Performed By: #### L [id number], [id number] ####Commissioner Conservation Of Resources: UNA ARCE ([phone])MONISHAA MCKAYN (SBHLAB)[address] Platelets (Bld) [#/Vol] 279 10*3/uL Normal 140-440 [facility] Comment on above: Performed By: #### L [id number], [id number] ####Commissioner Conservation Of Resources: UNA ACRE ([phone])[facility] (SBHLAB)[address] RBC (Bld) [#/Vol] 3.32 10*6/uL Low 4.40-5.90 [facility] Comment on above: Performed By: #### L [id number], [id number] ####Commissioner Conservation Of Resources: UNA ARCE ([id number])[facility]ITALAngel SANCHEZCARLSBAD MEDICAL CENTERN (SBHLAB)[address] WBC (Bld) [#/Vol] 11.2 10*3/uL High 3.6-10.7 [facility] Comment on above: Performed By: #### L [id number], [id number] ####Commissioner Conservation Of Resources: UNA ARCE ([phone])[facility] BARBCARLSBAD MEDICAL CENTERN (SBHLAB)[address] COMPREHENSIVE METABOLIC PANE Anant 04-09-2025 Albumin [Mass/Vol] 2.2 g/dL Low 3.4-4.8 [facility] Comment on above: Performed By: #### L AB103, NAE493, LAB17 ####Commissioner Conservation Of Resources: UNA ARCE ([phone])[facility]URACARLSBAD [facility]ICAL CENTERN (SBHLAB)[address] ALP [Catalytic activity/Vol] 56 U/L Normal 40-150 [facility] Comment on above: Performed By: #### L AB103, KBY041, LAB17 ####Commissioner Conservation Of Resources: UNA ARCE ([phone])[facility]ITAL[facility] ESCOTO (SBHLAB)[address] ALT [Catalytic activity/Vol] U/L Normal <40 [facility] Comment on above: Performed By: #### L AB103, YYM365, LAB17 ####Commissioner Conservation Of Resources: UNA ARCE ([phone])[facility]ITAL[facility] S[facility]ZCARLSBAD [facility] CENTERN (SBHLAB)[address] Anion gap [Moles/Vol] 10 mmol/L Normal 3-13 [facility] Comment on above: Performed By: #### L AB103, IJN791, LAB17 ####Commissioner Conservation Of Resources: UNA ARCE ([phone])[facility] (SBHLAB)[address] AST [Catalytic activity/Vol] 18 U/L Normal <34 [facility] Comment on above: Performed By: #### L AB103, HBE677, LAB17 ####Commissioner Conservation Of Resources: UNA ARCE ([id number])[facility] (SBHLAB)[address] Bilirubin [Mass/Vol] 0.7 mg/dL Normal <1.2 [facility] Comment on above: Performed By: #### L AB103, SDL362, LAB17 ####Commissioner Conservation Of Resources: UNA ARCE ([id number])[facility] (SB[facility]AB)[address] Calcium [Mass/Vol] 8.1 mg/dL Low 8.8-10.0 [facility] Comment on above: Performed By: #### L AB103, NAK571, LAB17 ####Commissioner Conservation Of Resources: UNA ARCE ([phone])[facility]ITAL[facility] SANCHEZCARLSBAD MEDICAL CENTERN (SBHLAB)[address] Chloride [Moles/Vol] 98 mmol/L Normal 98-107 [facility] Comment on above: Performed By: #### L AB103, FJH538, LAB17 ####Commissioner Conservation Of Resources: UNA YAZMIN ([id number])[facility] (SBHLAB)[address] CO2 [Moles/Vol] 34 mmol/L High 23-31 [facility] Comment on above: Performed By: #### L AB103, RHR668, LAB17 ####Commissioner Conservation Of Resources: UNA BERMUDEZPEDRO ([phone])[facility] (SBHLAB)[address] Creatinine [Mass/Vol] 1.53 mg/dL High 0.72-1.25 [facility] Comment on above: Performed By: #### L AB103, VWH409, LAB17 ####Commissioner Conservation Of Resources: UNA BERMUDEZPEDRO ([phone])[facility] ([facility])[address] GLOMERULAR FILTRATION RATE ML/MIN/1.73 SQ M.PREDICTED 43.2 mL/min/1.73m*2 Low >60.0 [facility] Comment on above: Result Comment: Calc ulation based on the Chronic Kidney Disease Epidemiology Collaboration (CKD-EPI) equation refit without adjustment for race Performed By: #### L AB103, [id number], LAB17 ####Commissioner Conservation Of Resources: UNA STAUFFERMELANIE ([id number])[facility] ([facility])[address] Glucose [Mass/Vol] 90 mg/dL Normal 82-115 [facility] Comment on above: Performed By: #### L AB103, HRB385, LAB17 ####Commissioner Conservation Of Resources: UNA BERMUDEZPEDRO ([phone])[facility] ([facility])[address] Potassium [Moles/Vol] 3.5 mmol/L Normal 3.5-5.1 [facility] Comment on above: Result Comment: [facility] potassium values may be up to 0.5 mmol/L lower than serum values. Performed By: #### L AB103, IZI467, LAB17 ####Commissioner Conservation Of Resources: UNAANJEL ARCE ([id number])[facility]ITAL[facility] [place] (SBHLAB)[address] [place] [address] Protein [Mass/Vol] 5.7 g/dL Low 6.4-8.3 [facility] Comment on above: Performed By: #### L AB103, HTA904, LAB17 ####Commissioner Conservation Of Resources: UNA YAZMIN ([id number])[facility] [place] (SBHLAB)[address] Sodium [Moles/Vol] 142 mmol/L Normal 136-145 [facility] Comment on above: Performed By: #### L AB103, LSA804, LAB17 ####Commissioner Conservation Of Resources: UNAANJEL ARCE ([id number])[facility]ITAL[facility] [place] (SBHLAB)[address] [place] [address] Urea nitrogen [Mass/Vol] 25 mg/dL High 9-23 [facility] Comment on above: Performed By: #### L AB103, MVT835, LAB17 ####Commissioner Conservation Of Resources: UNA YAZMIN ([phone])[facility] [place] (SBHLAB)[address] [place] [address] CULTURE ANAEROBICon 04-09-20 CULTURE ANAEROBIC Normal [facility] Comment on above: Performed By: #### L AB233 ####Commissioner Conservation Of Resources: ANAHY AVILA ([phone])[facility] ([facility])[address] [place] [address] CULTURE ANAEROBIC Normal [facility] Comment on above: Performed By: #### L AB233 ####Commissioner Conservation Of Resources: ANAHY AVILA ([id number])[address] CULTURE, AEROBIC BACTERIA WI TH GRAM STAINon 04-09-2025 CULTURE, AEROBIC BACTERIA WITH GRAM STAIN Normal [facility] Comment on above: Performed By: #### L AB897 ####Commissioner Conservation Of Resources: ANAHY AVILA ([id number])[facility] (SAC[facility])[address] [place] [address] CULTURE, AEROBIC BACTERIA WITH GRAM STAIN Normal [facility] Comment on above: Performed By: #### L AB897 ####Commissioner Conservation Of Resources: ANAHY AVILA ([id number])[facility] ([facility])[address] [place] [address] Comprehensive metabolic 1998 panelon 04-09-2025 Albumin [Mass/Vol] 2.2 g/dL Low 3.4 - 4.8 g/dL [facility] ALP [Catalytic activity/Vol] 56 U/L 40 - 150 U/L [facility] ALT [Catalytic activity/Vol] U/L NINF - 40 U/L [facility] Anion gap [Moles/Vol] 10 mmol/L 3 - 13 mmol/L [facility] AST [Catalytic activity/Vol] 18 U/L [facility] - 34 U/L [facility] Bilirubin [Mass/Vol] 0.7 mg/dL NINF - 1.2 mg/dL [facility] Calcium [Mass/Vol] 8.1 mg/dL Low 8.8 - 10. 0 mg/dL [facility] Chloride [Moles/Vol] 98 mmol/L 98 - 10 7 mmol/L [facility] CO2 [Moles/Vol] 34 mmol/L High 23 - 31 mmol/L [facility] Creatinine [Mass/Vol] 1.53 mg/dL High 0.72 - 1.25 mg/dL [facility] GFR/1.73 sq M.predicted (S/P/Bld) [Vol rate/Area] 43.2 mL/min Low - PINF [facility] Glucose [Mass/Vol] 90 mg/dL 82 - 115 mg/dL [facility] Interpretation and review of laboratory results Abnormal [facility] Potassium [Moles/Vol] 3.5 mmol/L 3.5 - 5.1 mmol/L [facility] Protein [Mass/Vol] 5.7 g/dL Low 6.4 - 8.3 g/dL [facility] Sodium [Moles/Vol] 142 mmol/L 136 - 145 mmol/L [facility] Urea nitrogen [Mass/Vol] 25 mg/dL High 9 - 23 mg/d L [facility] Consulton 04-09-2025 Consult Normal [facility] GLUCOSE, BODY FLUIDon 2024 GLUCOSE, BODY FLUID 132 mg/dL Normal [facility] Comment on above: Performed By: #### L AB188, JKX584, DIP494, EKP205 ####Commissioner Conservation Of Resources: ANAHY AVILA ([id number])[facility] ([facility])[address] [place] [address] GLUCOSE, BODY FLUID 92 mg/dL Normal [facility] Comment on above: Performed By: #### L AB196, FLV584, RUS982, AUH334 ####Commissioner Conservation Of Resources: ANAHY AVILA ([id number])[facility] ([facility])[address] [place] [address] LACTATE DEHYDROGENASEon LDH [Catalytic activity/Vol] 181 U/L Normal 125-220 [facility] Comment on above: Performed By: #### L AB118, LAB96 ####Commissioner Conservation Of Resources: UNA ARCE ([phone])[facility] ([address]HLAB[address] LACTATE DEHYDROGENASE, BODY FLUIDon 04-09-2025 LACTATE DEHYDROGENASE, BODY FLUID BY LAC->PYR 95 U/L Normal [facility] Comment on above: Performed By: #### L AB188, GJP271, MYY814, ZMD324 ####Commissioner Conservation Of Resources: ANAHY AVILA ([id number])[facility] ([facility])[address] [place] [address] LACTATE DEHYDROGENASE, BODY FLUID BY LAC->PYR 95 U/L Normal [facility] Comment on above: Performed By: #### L AB196, EMK126, SGP295, IPX205 ####Commissioner Conservation Of Resources: ANAHY AVILA ([phone])[facility])[address] [place] [address] TYPE OF BODY FLUID Pleural Fluid Normal [facility] Comment on above: Result Comment: YARELI [place] COMMENTS:This test was developed and its performance characteristics determined by [employer]. It has not been cleared or approved by the [place] Food and Drug Administration. This test was performed in a CLIA certified laboratory and is intended for clinical purposes.Exudates are defined as meeting one of the following criteria: (a) Pleural ncgfn-cg-yggax protein ratio of >0.5, (b) pleural qdswt-jj-ilxgu LDH ratio of >0.6, or (c)a pleural fluid LDH activity that is >2/3 the upper limit of a normal serum LDH activity (Light???s criteria). Performed By: #### L AB196, GQD405, QRT513, NAE656 ####Commissioner Conservation Of Resources: ANAHY AVILA ([id number])[facility] ([facility])[address] [place] [address] Result Comment: ORDE R COMMENTS:This test was developed and its performance characteristics determined by [employer]. It has not been cleared or [...] developed and its performance characteristics determined by [employer]. It has not been cleared or approved by the [place] Food and Drug Administration. This test was performed in a CLIA certified laboratory and is intended for clinical purposes.Pleural rosav-bj-myfiv protein ratio of >0.5 is one of Light???s criteria for an exudate. Heart failure associated misclassifications (by Light???s criteria) may be differentiated as transudative effusions by subsequently evaluating a qkblf-qg-wxcuwfj albumin gradient (>1.2 g/dL) and/or a mzupd-zl-hqyyu protein gradient (>3.1 g/dL). Result Comment: ORDE R COMMENTS:This test was developed and its performance characteristics determined by [employer]. It has not been cleared or approved by the US Food and Drug Administration. This test was performed in a CLIA certified laboratory and is intended for clinical purposes. Performed By: #### L OH0932, YOE391 ####Commissioner Conservation Of Resources: UNA ARCE ([phone])[facility] (SBHLAB)[address] [place] [address] LDH Lactate to pyruvate reac tion [Catalytic activity/Vol]on 04-09-2025 Interpretation and review of laboratory results [facility] Fluid Nom (Body fld) Pleural Fluid S [facility] Fluid Nom (Body fld) Pleural Fluid S [facility] Fluid Nom (Body fld) Pleural Fluid S [facility] Fluid Nom (Body fld) Pleural Fluid S [facility] Fluid Nom (Body fld) Pleural Fluid S [facility] Fluid Nom (Body fld) Pleural Fluid S [facility] Fluid Nom (Body fld) Pleural Fluid S [facility] LaboratoryOrdered By: Anne cadena on 04-09-2025 Fluid Nom (Body fld) Pleural Fluid S [facility] LaboratoryOrdered By: Rian Spann on 04-09-2025 Fluid Nom (Body fld) Pleural Fluid S [facility] Laboratory - Chemistry and C hemistry - challengeon 04-09-2025 LDH (Body fld) [Catalytic activity/Vol] 95 U/L [facility] Glucose (Body fld) [Mass/Vol] 132 mg/dL [facility] Protein (Body fld) [Mass/Vol] 2.3 g/dL [facility] pH (Body fld) 7.747 [pH] [facility] pH (Body fld) 7.688 [pH] [facility] Protein (Body fld) [Mass/Vol] 2.5 g/dL [facility] Glucose (Body fld) [Mass/Vol] 92 mg/dL [facility] LDH Lactate to pyruvate reaction [Catalytic activity/Vol] 181 U/L 125 - 220 U/L [facility] Protein [Mass/Vol] 5.9 g/dL Low 6.4 - 8.3 g/dL [facility] Magnesium [Mass/Vol] 1.7 mg/dL 1.6 - 2 .6 mg/dL [facility] Laboratory - Chemistry and C hemistry - challengeOrdered By: Anne Miles on 04-09-2025 LDH (Body fld) [Catalytic activity/Vol] 95 U/L [facility] Laboratory - Hematology and Cell countson 04-09-2025 Cells Counted Total (Body fld) [#] 100 [facility] Lymphocytes/100 WBC (Bld) 51 % [facility] Macrophages/100 WBC Manual cnt (Body fld) 36 % [facility] Neutrophils/100 WBC (Body fld) 13 % [facility] RBC Auto (Body fld) [#/Vol] High [facility] WBC (Body fld) [#/Vol] 0.341 10*3/uL High NINF [facility] Cells Counted Total (Body fld) [#] 100 [facility] Lymphocytes/100 WBC (Bld) 31 % [facility] Macrophages/100 WBC Manual cnt (Body fld) 37 % [facility] Mesothelial cells/100 WBC Manual cnt (Body fld) 2 % [facility] Neutrophils/100 WBC (Body fld) 30 % [facility] Anisocytosis Ql (Bld) Moderate Abnormal (none) [facility] Eosinophils (Bld) [#/Vol] 0.6 10*3/uL High 0.0 - 0.5 10*3/uL [facility] Eosinophils/100 WBC (Bld) 5 % 0 - 6 % [facility] Hypochromia Ql (Bld) Moderate Abnormal (none) [facility] Lymphocytes (Bld) [#/Vol] 0.8 10*3/uL Low 1.0 - 4.3 10*3/uL [facility] Lymphocytes/100 WBC (Bld) 7 % Low 15 - 45 % [facility] Monocytes (Bld) [#/Vol] 2 10*3/uL High 0.0 - 0.9 10*3/uL [facility] Monocytes/100 WBC (Bld) 18 % High 5 - 13 % [facility] Neutrophils (Bld) [#/Vol] 8 10*3/uL High 1.8 - 7.5 10*3/uL [facility] Poikilocytosis LM Ql (Bld) Slight Abnormal (none) [facility] Polychromasia LM Ql (Bld) Slight Abnormal (none) [facility] RBC morphology finding Nom (Bld) abnormal [facility] Segmented neutrophils/100 WBC (Bld) 71 % 38 - 82 % [facility] Stomatocytes LM Ql (Bld) Moderate Abnormal (none) [facility] Laboratory - Hematology and Cell countsOrdered By: Kyara Valles on 04-09-2025 RBC Auto (Body fld) [#/Vol] High [facility] WBC (Body fld) [#/Vol] 0.112 10*3/uL High NINF [facility] MAGNESIUMon 04-09-2025 Magnesium [Mass/Vol] 1.7 mg/dL Normal 1.6-2.6 [facility] Comment on above: Result Comment: YARELI [place] COMMENTS:Higher values can be expected in females during menses. Performed By: #### L [id number], [id number], [id number] ####Commissioner Conservation Of Resources: UNA ARCE ([phone])[facility] [place] ([facility])[address] MANUAL DIFFERENTIAL (CELLAVI BANDAR)on 04-09-2025 ANISOCYTOSIS PRESENCE IN BLOOD BY LIGHT MICROSCOPY Moderate Abnormal (none) [facility] Comment on above: Performed By: #### L [id number], [id number] ####Commissioner Conservation Of Resources: UNA ARCE ([phone])[facility] [place] (SB[facility])[address] BAND NEUTROPHILS TOTAL PER COUNTED LEUKOCYTES BY MANUAL COUNT Normal [facility] Comment on above: Performed By: #### L [id number], [id number] ####Commissioner Conservation Of Resources: UNA ARCE ([phone])[facility] [place] (SB[facility])[address] BASOPHILS TOTAL PER COUNTED LEUKOCYTES BY MANUAL COUNT Normal [facility] Comment on above: Performed By: #### L [id number], [id number] ####Commissioner Conservation Of Resources: UNA ARCE ([phone])[facility] [place] (SB[facility])[address] BLASTS TOTAL PER COUNTED LEUKOCYTES BY MANUAL COUNT Normal [facility] Comment on above: Performed By: #### L [id number], [id number] ####Commissioner Conservation Of Resources: UNA ARCE ([phone])[facility] [place] (SBHLAB)[address] EOSINOPHILS (10*3/UL) IN BLOOD-CELLAVISION 0.6 10*3/uL High 0.0-0.5 [facility] Comment on above: Performed By: #### L [id number], [id number] ####Commissioner Conservation Of Resources: UNA ARCE ([phone])[facility] [place] (SBHLAB)[address] [place] [address] [place] EOSINOPHILS TOTAL PER COUNTED LEUKOCYTES BY MANUAL COUNT 5 High 0-1 [facility] Comment on above: Performed By: #### L [id number], [id number] ####Commissioner Conservation Of Resources: UNA ARCE ([phone])[facility] [place] (SBHLAB)[address] [place] [address] [place] EOSINOPHILS/100 LEUKOCYTES IN BLOOD-CELLAVISION 5 % Normal 0-6 [facility] Comment on above: Performed By: #### L [id number], [id number] ####Commissioner Conservation Of Resources: UNA ARCE ([phone])[facility] [place] (SB[facility])[address] [place] [address] [place] HYPOCHROMIA (PRESENCE) IN BLOOD BY LIGHT MICROSCOPY Moderate Abnormal (none) [facility] Comment on above: Performed By: #### L [id number], [id number] ####Commissioner Conservation Of Resources: UNA ARCE ([id number])[facility] [place] ([facility])[address] [place] [address] [place] LYMPHOCYTES (10*3/UL) IN BLOOD-CELLAVISION 0.8 10*3/uL Low 1.0-4.3 [facility] Comment on above: Performed By: #### L [id number], [id number] ####Commissioner Conservation Of Resources: UNA ARCE ([id number])[facility] [place] (SB[facility])[address] [place] [address] [place] LYMPHOCYTES TOTAL PER COUNTED LEUKOCYTES BY MANUAL COUNT 7 Normal [facility] Comment on above: Performed By: #### L [id number], [id number] ####Commissioner Conservation Of Resources: UNA ARCE ([phone])[facility] [place] (SB[facility])[address] [place] [address] [place] LYMPHOCYTES/100 LEUKOCYTES IN BLOOD-CELLAVISION 7 % Low 15-45 [facility] Comment on above: Performed By: #### L [id number], [id number] ####Commissioner Conservation Of Resources: UNA ARCE ([phone])[facility] [place] (SB[facility])[address] [place] [address] [place] METAMYELOCYTES TOTAL PER COUNTED LEUKOCYTES BY MANUAL COUNT [facility] Comment on above: Performed By: #### L [id number], [id number] ####Commissioner Conservation Of Resources: UNA ARCE ([phone])[facility] [place] ([facility])[address] [place] [address] [place] MONOCYTES (10*3/UL) IN BLOOD-CELLAVISION 2.0 10*3/uL High 0.0-0.9 [facility] Comment on above: Performed By: #### L [id number], [id number] ####Commissioner Conservation Of Resources: UNA ARCE ([phone])[facility] [place] (SB[facility])[address] [place] [address] [place] MONOCYTES TOTAL PER COUNTED LEUKOCYTES BY MANUAL COUNT 19 [facility] Comment on above: Performed By: #### L [id number], [id number] ####Commissioner Conservation Of Resources: UNA ARCE ([phone])[facility] [place] (SB[facility])[address] [place] [address] [place] MONOCYTES/100 LEUKOCYTES IN BLOOD-LUCIANA 18 % High 5-13 [facility] Comment on above: Performed By: #### L [id number], [id number] ####Commissioner Conservation Of Resources: UNA ARCE ([phone])[facility] [place] (SB[facility])[address] [place] [address] [place] MYELOCYTES COUNTED BY MANUAL COUNT [facility] Comment on above: Performed By: #### L [id number], [id number] ####Commissioner Conservation Of Resources: UNA ARCE ([phone])[facility] [place] (SB[facility])[address] [place] [address] [place] NEUTROPHILS TOTAL PER COUNTED LEUKOCYTES BY MANUAL COUNT 77 Normal [facility] Comment on above: Performed By: #### L [id number], [id number] ####Commissioner Conservation Of Resources: UNA ARCE ([phone])[facility] [place] (SB[facility])[address] [place] [address] [place] POIKILOCYTOSIS (PRESENCE) IN BLOOD BY LIGHT MICROSCOPY Slight Abnormal (none) [facility] Comment on above: Performed By: #### L [id number], [id number] ####Commissioner Conservation Of Resources: UNA ARCE ([phone])[facility] [place] ([facility])[address] POLYCHROMASIA IN BLOOD BY LIGHT MICROSCOPY Slight Abnormal (none) [facility] Comment on above: Performed By: #### L [id number], [id number] ####Commissioner Conservation Of Resources: UNA STAUFFERMELANIE ([phone])[facility] [place] (SB[facility])[address] PROMYELOCYTES TOTAL PER COUNTED LEUKOCYTES BY MANUAL COUNT Normal [facility] Comment on above: Performed By: #### L [id number], [id number] ####Commissioner Conservation Of Resources: UNA ARCE ([phone])[facility] [place] (SB[facility])[address] [place] [address] [place] RBC MORPHOLOGY IN BLOOD abnormal Normal [facility] Comment on above: Performed By: #### L [id number], [id number] ####Commissioner Conservation Of Resources: UNA ARCE ([id number])[facility] [place] ([facility])[address] [place] [address] [place] SEGMENTED NEUTROPHILS (10*3/UL) IN BLOOD-CELLAVISION 8.0 10*3/uL High 1.8-7.5 [facility] Comment on above: Performed By: #### L [id number], [id number] ####Commissioner Conservation Of Resources: UNA ARCE ([phone])[facility] [place] ([facility])[address] [place] [address] [place] SEGMENTED NEUTROPHILS/100 LEUKOCYTES-CE 71 % Normal 38-82 [facility] Comment on above: Performed By: #### L [id number], [id number] ####Commissioner Conservation Of Resources: UNA BERMUDEZPEDRO ([phone])[facility] (SBHL[facility])[address] STOMATOCYTES IN BLOOD BY LIGHT MICROSCOPY Moderate Abnormal (none) [facility] Comment on above: Performed By: #### L [id number], [id number] ####Commissioner Conservation Of Resources: UNA BERMUDEZPEDRO ([phone])[facility] (SBHLAB)[address] UNCLASSIFIED CELLS TOTAL PER COUNTED LEUKOCYTES BY MANUAL COUNT Normal [facility] Comment on above: Performed By: #### L [id number], [id number] ####Commissioner Conservation Of Resources: UNA STAUFFERMELANIE ([phone])[facility] (SBHLAB)[address] VARIANT LYMPHOCYTES TOTAL PER COUNTED LEUKOCYTES BY MANUAL COUNT Normal [facility] Comment on above: Performed By: #### L [id number], [id number] ####Commissioner Conservation Of Resources: UNA BERMUDEZPEDRO ([phone])[facility] [place] (SBHLAB)[address] Magnesium [Mass/Vol]on 04-09 [facility] No Panel Informationon 04-09 [facility] Interpretation and review of laboratory results Abnormal [facility] Interpretation and review of laboratory results Abnormal [facility] Interpretation and review of laboratory results Normal [facility] Eosinophils Manual 5 High 0 - 1 [facility] Lymphocytes Manual 7 [facility] Monocytes Manual 19 [facility] Neutrophils Manual 77 [facility] No Panel InformationOrdered By: Anne [...] pt tolerated well with minimal discomfort Normal [facility] Nursing Note L thoracentesis complete per Dr Lewis. Pt tolerated well with minimal discomfort Normal [facility] PH, BODY FLUIDon 04-09-2025 pH (Body fld) 7.747 [pH] Normal [facility] Comment on above: Performed By: #### L [id number], [id number], [id number], [id number] ####Commissioner Conservation Of Resources: ANAHY AVILA ([phone])[facility] ([facility])[address] [place] [address] TYPE OF BODY FLUID Pleural Fluid Normal [facility] Comment on above: Result Comment: YARELI [place] COMMENTS:This test was developed and its performance characteristics determined by [employer]. It has not been cleared or approved by the [place] Food and Drug Administration. This test was performed in a CLIA certified laboratory and is intended for clinical purposes. Performed By: #### L [id number], [id number], [id number], [id number] ####Commissioner Conservation Of Resources: ANAHY AVILA ([phone])[facility] ([facility])[address] [place] [address] Result Comment: YARELI [place] COMMENTS:This test was developed and its performance characteristics determined by [employer]. It has not been cleared or [...] developed and its performance characteristics determined by [employer]. It has not been cleared or approved by the [place] Food and Drug Administration. This test was performed in a CLIA certified laboratory and is intended for clinical purposes.Pleural cjaqv-ov-ubqiy protein ratio of >0.5 is one of Light???s criteria for an exudate. Heart failure associated misclassifications (by Light???s criteria) may be differentiated as transudative effusions by subsequently evaluating a nkbgf-xc-sfajrhi albumin gradient (>1.2 g/dL) and/or a hbstf-gw-paavi protein gradient (>3.1 g/dL). Result Comment: YARELI [place] COMMENTS:This test was developed and its performance characteristics determined by [facility]. It has not been cleared or approved by the US Food and Drug Administration. This test was performed in a CLIA certified laboratory and is intended for clinical purposes.Exudates are defined as meeting one of the following criteria: (a) Pleural wdjrm-rj-mmyvu protein ratio of >0.5, (b) pleural ghjey-hc-wbcui LDH ratio of >0.6, or (c)a pleural fluid LDH activity that is >2/3 the upper limit of a normal serum LDH activity (Light???s criteria). Performed By: #### L [id number], [id number] ####Commissioner Conservation Of Resources: UNA ARCE ([phone])[facility] ([facility])[address] [place] [address] pH (Body fld) 7.688 [pH] Normal [facility] Comment on above: Performed By: #### L AB196, [id number], [id number], [id number] ####Commissioner Conservation Of Resources: ANAHY AVILA ([id number])[facility] ([facility])[address] [place] [address] PHOSPHORUSon 04-09-2025 Phosphate [Mass/Vol] 3.5 mg/dL Normal 2.3-4.7 [facility] Comment on above: Performed By: #### L AB103, [id number], LAB17 ####Commissioner Conservation Of Resources: UNA ARCE ([phone])[facility] ([facility])[address] [place] [address] PROTEIN BODY FLUIDon 025 PROTEIN, BODY FLUID 2.3 g/dL Normal [facility] Comment on above: Performed By: #### L [id number], [id number], [id number], [id number] ####Commissioner Conservation Of Resources: ANAHY [phone])[facility] ([facility])[address] [place] [address] PROTEIN, BODY FLUID 2.5 g/dL Normal [facility] Comment on above: Performed By: #### L AB196, CDO686, ODT826, [id number] ####Commissioner Conservation Of Resources: ANAHY AVILA ([phone])[facility] ([facility])[address] [place] [address] [place] Phosphate [Moles/Vol]on Phosphate [Mass/Vol] 3.5 mg/dL 2.3 - 4 .7 mg/dL [facility] Progress Noteon 04-09-2025 Progress Note Normal [facility] Progress Note Normal [facility] Progress Note Normal [facility] Progress [facility] Normal [facility] Progress Note [facility] TOTAL PROTEINon 04-09-2025 Protein [Mass/Vol] 5.9 g/dL Low 6.4-8.3 [facility] Comment on above: Result Comment: Seru m protein values are higher than plasma values. Samples from recumbent persons are lower by up to 0.5 g/dL as compared to ambulatory persons. After 60 years values are lower by up to 0.2 g/dL. Performed By: #### L AB118, LAB96 ####Commissioner Conservation Of Resources: UNA ARCE ([phone])[facility] ([facility])[address] [place] [address] XR CHEST 1 VIEWon 04-09-2025 XR CHEST 1 VIEW Normal [facility] XR Chest Single viewon 04-09 [facility] RADIOLOGY SYSTEM [facility] Radiology Study observation (narrative) [facility] RADIOLOGY SYSTEM [facility] Radiology Study observation (narrative) [facility] RAD[facility]Y [facility] Radiology Study observation (narrative) Lynette Balderrama alth XR Chest Single viewOrdered By: Gary Kay on 04-09-2025 [facility] Work Phone: XR Chest Single viewOrdered By: Sis Collins on 04-09-2025 [facility] Work Phone: XR Chest Single viewOrdered By: Kev Mattson on 04-09-2025 [facility] Work Phone: [phone] 04-08-2025 [id number] Attempted to insert garcía. Urojet injected. Unable to visualize meatus. Attempted x1 to insert garcía without success. Normal [facility] [id number] Normal [facility] [id number] 04-08-2025 [id number] Normal [facility] BLOOD GAS ARTERIALon 025 AMOUNT OF OXYGEN .40 Normal [facility] Comment on above: Performed By: #### L [id number] ####Commissioner Conservation Of Resources: UNA ARCE ([phone])[facility] ([facility])[address] [place] [address] Base excess Calc (Bld) [Moles/Vol] 11.2 mmol/L High -3.0-3.0 [facility] Comment on above: Performed By: #### L AB76 ####Commissioner Conservation Of Resources: UNA ARCE ([phone])[facility] (SB[facility])[address] [place] [address] CO2 [Moles/Vol] 41.2 mmol/L High 22.0-28.0 [facility] Comment on above: Performed By: #### L AB76 ####Commissioner Conservation Of Resources: UNA ARCE ([phone])[facility] (SB[facility])[address] [place] [address] HCO3 (Bld) [Moles/Vol] 38.9 mmol/L High 21.0-27.0 [facility] Comment on above: Performed By: #### L AB76 ####Commissioner Conservation Of Resources: UNA ARCE ([phone])[facility] (SB[facility])[address] [place] [address] Hemoglobin (Bld) [Mass/Vol] 8.4 g/dL Low Screen only [facility] Comment on above: Performed By: #### L AB76 ####Commissioner Conservation Of Resources: UNA ARCE ([phone])[facility] [place] ([facility])[address] OXYGEN SATURATION (%) IN ARTERIAL BLOOD 97.0 % Normal 97.0-99.0 [facility] Comment on above: Performed By: #### L AB76 ####Commissioner Conservation Of Resources: UNA ARCE ([phone])[facility] (SBHLAB)[address] PCO2 ARTERIAL 75.1 mm Hg High 35.0-48.0 [facility] Comment on above: Performed By: #### L AB76 ####Commissioner Conservation Of Resources: UNA ARCE ([phone])[facility] (HL[facility])[address] PH ARTERIAL 7.332 Low 7.350-7.450 [facility] Comment on above: Performed By: #### L AB76 ####Commissioner Conservation Of Resources: UNA ARCE ([phone])[facility] (HL[facility])[address] PO2 ARTERIAL 104.0 mm Hg Normal 83.0-108.0 [facility] Comment on above: Performed By: #### L AB76 ####Commissioner Conservation Of Resources: UNA ARCE ([phone])[facility] (HL[facility])[address] SOURCE OF OXYGEN Non-Invasive Ventilator Normal [facility] Comment on above: Performed By: #### L AB76 ####Commissioner Conservation Of Resources: UNA ARCE ([phone])[facility] (SB[facility])[address] AMOUNT OF OXYGEN 4 liters Normal [facility] Comment on above: Performed By: #### L AB76 ####Commissioner Conservation Of Resources: UNA ARCE ([phone])[facility] (SB[facility])[address] Base excess Calc (Bld) [Moles/Vol] 9.9 mmol/L High -3.0-3.0 [facility] Comment on above: Performed By: #### L AB76 ####Commissioner Conservation Of Resources: UNA ARCE ([phone])[facility] [place] ([facility])[address] CO2 [Moles/Vol] 40.6 mmol/L High 22.0-28.0 [facility] Comment on above: Performed By: #### L AB76 ####Commissioner Conservation Of Resources: UNA ARCE ([phone])[facility] [place] ([facility])[address] HCO3 (Bld) [Moles/Vol] 38.2 mmol/L High 21.0-27.0 [facility] Comment on above: Performed By: #### L AB76 ####Commissioner Conservation Of Resources: UNA ARCE ([phone])[facility] (SB[facility])[address] Hemoglobin (Bld) [Mass/Vol] 8.6 g/dL Low Screen only [facility] Comment on above: Performed By: #### L AB76 ####Commissioner Conservation Of Resources: UNA ARCE ([phone])[facility] (SBHL[facility])[address] OXYGEN SATURATION (%) IN ARTERIAL BLOOD 96.1 % Low 97.0-99.0 [facility] Comment on above: Performed By: #### L AB76 ####Commissioner Conservation Of Resources: UNA ARCE ([phone])[facility] (SB[facility])[address] PCO2 ARTERIAL 80.1 mm Hg Critically high 35.0-48.0 [facility] Comment on above: Performed By: #### L AB76 ####Commissioner Conservation Of Resources: UNA ARCE ([phone])[facility] (SB[facility])[address] PH ARTERIAL 7.296 Low 7.350-7.450 [facility] Comment on above: Performed By: #### L AB76 ####Commissioner Conservation Of Resources: UNA ARCE ([phone])[facility]ITALAngel SANCHEZCARLSBAD MEDICAL CENTERMarisol (SBHLAB)[address] PO2 ARTERIAL 92.0 mm Hg Normal 83.0-108.0 [facility] Comment on above: Performed By: #### L AB76 ####Commissioner Conservation Of Resources: UNA YAZMIN ([phone])[facility]ITAL[facility] (SBHLAB)[address] SOURCE OF OXYGEN Nasal Cannula (LPM) Normal [facility] Comment on above: Performed By: #### L AB76 ####Commissioner Conservation Of Resources: UNA ARCE ([phone])[facility] (SBHLAB)[address] CBC W Auto Differential pane l (Bld)on 04-08-2025 Erythrocyte distribution width (RBC) [Ratio] 21.1 % High 11.5 - 15.0 % [employer] [facility] Hematocrit (Bld) [Volume fraction] 25.9 % Low 40.0 - 52.0 % [employer] [facility] Hemoglobin (Bld) [Mass/Vol] 7.2 g/dL Low 13.0 - 18.0 g/dL [facility] [facility] MCH (RBC) [Entitic mass] 22.3 pg Low 26. 0 - 34.[address] [facility] MCHC (RBC) [Mass/Vol] 27.8 % Low 30.5 - 36.0 % [facility] MCV (RBC) [Entitic vol] 80.2 fL 77.0 - 99.0 fL [facility] Platelet mean volume (Bld) [Entitic vol] 9.9 fL 9.0 - 12.7 fL [facility] Platelets (Bld) [#/Vol] 314 10*3/uL 140 - 440 10*3/uL [facility] RBC (Bld) [#/Vol] 3.23 10*6/uL Low 4.40 - 5.9 0 10*6/uL [facility] WBC (Bld) [#/Vol] 13 10*3/uL High 3.6 - 10.7 10*3/uL [facility] CBC WITH AUTO DIFFERENTIALon 04-08-2025 Erythrocyte distribution width (RBC) [Ratio] 21.1 % High 11.5-15.0 [facility] Comment on above: Performed By: #### L [id number], [id number] ####Commissioner Conservation Of Resources: UNA ARCE ([phone])[facility] (SBHLAB)[address] Hematocrit (Bld) [Volume fraction] 25.9 % Low 40.0-52.0 [facility] Comment on above: Performed By: #### L [id number], [id number] ####Commissioner Conservation Of Resources: UNA ARCE ([phone])[facility] ([facility] Hemoglobin (Bld) [Mass/Vol] 7.2 g/dL Low 13.0-18.0 [facility] Comment on above: Performed By: #### L [id number], [id number] ####Commissioner Conservation Of Resources: UNA ARCE ([id number])[facility] (SBAB)[address] [place] [address] MCH (RBC) [Entitic mass] 22.3 pg Low 26.0-34.0 [facility] Comment on above: Performed By: #### L [id number], [id number] ####Commissioner Conservation Of Resources: UNA ARCE ([phone])[facility] ([facility])[address] [place] [address] MCHC 27.8 % Low 30.5-36.0 [facility] Comment on above: Performed By: #### L [id number], [id number] ####Commissioner Conservation Of Resources: UNA ARCE ([phone])[facility] ([facility])[address] MCV (RBC) [Entitic vol] 80.2 fL Normal 77.0-99.0 S [facility] Comment on above: Performed By: #### L [id number], [id number] ####Commissioner Conservation Of Resources: UNA ARCE ([id number])[facility] (SBHLAB)[address] Platelet mean volume (Bld) [Entitic vol] 9.9 fL Normal 9.0-12.7 [facility] Comment on above: Performed By: #### L [id number], [id number] ####Commissioner Conservation Of Resources: UNA ARCE ([id number])[facility] (SBHLAB)[address] Platelets (Bld) [#/Vol] 314 10*3/uL Normal 140-440 [facility] Comment on above: Performed By: #### L [id number], [id number] ####Commissioner Conservation Of Resources: UNA ARCE ([phone])[facility] ([facility])[address] RBC (Bld) [#/Vol] 3.23 10*6/uL Low 4.40-5.90 [facility] Comment on above: Performed By: #### L [id number], [id number] ####Commissioner Conservation Of Resources: UNA ARCE ([phone])[facility] (SBHLAB)[address] WBC (Bld) [#/Vol] 13.0 10*3/uL High 3.6-10.7 [facility] Comment on above: Performed By: #### L [id number], [id number] ####Commissioner Conservation Of Resources: UNA ARCE ([phone])[facility] ([facility])[address] COMPREHENSIVE METABOLIC PANE Anant 04-08-2025 Albumin [Mass/Vol] 2.4 g/dL Low 3.4-4.8 [facility] Comment on above: Performed By: #### L [id number], [id number] ####Commissioner Conservation Of Resources: UNA ARCE ([phone])[facility] (SBHLAB)[address] ALP [Catalytic activity/Vol] 57 U/L Normal 40-150 [facility] Comment on above: Performed By: #### L [id number], [id number] ####Commissioner Conservation Of Resources: UNA ARCE ([id number])[facility] (SBHLAB)[address] ALT [Catalytic activity/Vol] U/L Normal <40 [facility] Comment on above: Performed By: #### L [id number], [id number] ####Commissioner Conservation Of Resources: UNA STAUFFERMELANIE ([phone])[facility] ([facility])[address] Anion gap [Moles/Vol] 10 mmol/L Normal 3-13 [facility] Comment on above: Performed By: #### L [id number], [id number] ####Commissioner Conservation Of Resources: UNA STAUFFERMELANIE ([phone])[facility] ([facility])[address] AST [Catalytic activity/Vol] 21 U/L Normal <34 [facility] Comment on above: Performed By: #### L [id number], [id number] ####Commissioner Conservation Of Resources: UNA STAUFFERMELANIE ([phone])[facility] ([facility])[address] Bilirubin [Mass/Vol] 0.6 mg/dL Normal <1.2 [facility] Comment on above: Performed By: #### L [id number], LAB17 ####Commissioner Conservation Of Resources: UNA ARCE ([phone])[facility] ([facility])[address] Calcium [Mass/Vol] 7.9 mg/dL Low 8.8-10.0 [facility] Comment on above: Performed By: #### L [id number], [id number] ####Commissioner Conservation Of Resources: UNA ARCE ([phone])[facility] ([facility])[address] Chloride [Moles/Vol] 99 mmol/L Normal 98-107 [facility] Comment on above: Performed By: #### L [id number], [id number] ####Commissioner Conservation Of Resources: UNA ARCE ([phone])[facility] (SBHLAB)[address] CO2 [Moles/Vol] 33 mmol/L High 23-31 [facility] Comment on above: Performed By: #### L [id number], [id number] ####Commissioner Conservation Of Resources: UNA ARCE ([phone])[facility] (SBHLAB)[address] Creatinine [Mass/Vol] 1.78 mg/dL High 0.72-1.25 [facility] Comment on above: Performed By: #### L DERICK, [id number] ####Commissioner Conservation Of Resources: UNA ARCE ([phone])[facility] (SBHLAB)[address] GLOMERULAR FILTRATION RATE ML/MIN/1.73 SQ M.PREDICTED 36.0 mL/min/1.73m*2 Low >60.0 [facility] Comment on above: Result Comment: Calc ulation based on the Chronic Kidney Disease Epidemiology Collaboration (CKD-EPI) equation refit without adjustment for race Performed By: #### L DERICK, [id number] ####Commissioner Conservation Of Resources: UNA ARCE ([phone])[facility] [place] (SBHLAB)[address] Glucose [Mass/Vol] 99 mg/dL Normal 82-115 [facility] Comment on above: Performed By: #### L [id number], LAB17 ####Commissioner Conservation Of Resources: UNA ARCE ([phone])[facility] (SBHLAB)[address] [place] [address] [place] Potassium [Moles/Vol] 3.4 mmol/L Low 3.5-5.1 [facility] Comment on above: Result Comment: [facility] potassium values may be up to 0.5 mmol/L lower than serum values. Performed By: #### L AB103, LAB17 ####Commissioner Conservation Of Resources: UNA ARCE ([phone])[facility] (SBHLAB)[address] Protein [Mass/Vol] 5.8 g/dL Low 6.4-8.3 [facility] Comment on above: Performed By: #### L AB103, LAB17 ####Commissioner Conservation Of Resources: UNA ARCE ([phone])[facility] [place] (SBHLAB)[address] Sodium [Moles/Vol] 142 mmol/L Normal 136-145 [facility] Comment on above: Performed By: #### L AB103, LAB17 ####Commissioner Conservation Of Resources: UNA ARCE ([phone])[facility] [place] (SBHLAB)[address] Urea nitrogen [Mass/Vol] 26 mg/dL High 9-23 [facility] Comment on above: Performed By: #### L AB103, LAB17 ####Commissioner Conservation Of Resources: UNA ARCE ([phone])[facility] [place] (SBHLAB)[address] Comprehensive metabolic 1998 panelon 04-08-2025 Albumin [Mass/Vol] 2.4 g/dL Low 3.4 - 4.8 g/dL [facility] ALP [Catalytic activity/Vol] 57 U/L 40 - 150 U/L [facility] ALT [Catalytic activity/Vol] U/L NINF - 40 U/L [facility] Anion gap [Moles/Vol] 10 mmol/L 3 - 13 mmol/L [facility] AST [Catalytic activity/Vol] 21 U/L NINF - 34 U/L [facility] Bilirubin [Mass/Vol] 0.6 mg/dL NINF - 1.2 mg/dL [facility] Calcium [Mass/Vol] 7.9 mg/dL Low 8.8 - 10. 0 mg/dL [facility] Chloride [Moles/Vol] 99 mmol/L 98 - 10 7 mmol/L [facility] CO2 [Moles/Vol] 33 mmol/L High 23 - 31 mmol/L [facility] Creatinine [Mass/Vol] 1.78 mg/dL High 0.72 - 1.25 mg/dL [facility] GFR/1.73 sq M.predicted (S/P/Bld) [Vol rate/Area] 36 mL/min Low - PINF [facility] Glucose [Mass/Vol] 99 mg/dL 82 - 115 mg/dL [facility] Interpretation and review of laboratory results Abnormal [facility] Potassium [Moles/Vol] 3.4 mmol/L Low 3.5 - 5.1 mmol/L [facility] Protein [Mass/Vol] 5.8 g/dL Low 6.4 - 8.3 g/dL [facility] Sodium [Moles/Vol] 142 mmol/L 136 - 145 mmol/L [facility] Urea nitrogen [Mass/Vol] 26 mg/dL High 9 - 23 mg/d L [facility] Consulton 04-08-2025 Consult Normal [facility] Laboratory - Chemistry and C hemistry - challengeOrdered By: Renay Chan on 04-08-2025 Base excess Calc (Bld) [Moles/Vol] 11.2 mmol/L High -3.0 - 3.0 mmol/L [facility] CO2 (Bld) [Partial pressure] 75.1 mm[Hg] High [facility] CO2 [Moles/Vol] 41.2 mmol/L High 22.0 - 28.0 mmol/L [facility] HCO3 (Bld) [Moles/Vol] 38.9 mmol/L High 21.0 - 27.0 mmol/L [facility] Oxygen (Bld) [Partial pressure] 104 mm[Hg] [facility] pH (Bld) 7.332 [pH] Low 7.350 - 7.450 [facility] Laboratory - Chemistry and C hemistry - challengeOrdered By: Sallie Powell on 04-08-2025 Base excess Calc (Bld) [Moles/Vol] 9.9 mmol/L High -3.0 - 3.0 mmol/L [facility] CO2 (Bld) [Partial pressure] 80.1 mm[Hg] Critically high [facility] CO2 [Moles/Vol] 40.6 mmol/L High 22.0 - 28.0 mmol/L [facility] HCO3 (Bld) [Moles/Vol] 38.2 mmol/L High 21.0 - 27.0 mmol/L [facility] Oxygen (Bld) [Partial pressure] 92 mm[Hg] [facility] pH (Bld) 7.296 [pH] Low 7.350 - 7.450 [facility] Laboratory - Chemistry and C hemistry - challengeon 04-08-2025 Glucose [Mass/Vol] 100 mg/dL 70 - 100 mg/dL [facility] Magnesium [Mass/Vol] 1.6 mg/dL 1.6 - 2 .6 mg/dL [facility] Laboratory - Hematology and Cell countsOrdered By: Renay Chan on 04-08-2025 Hemoglobin (Bld) [Mass/Vol] 8.4 g/dL Low 13.5 - 17.5 g/dl [facility] Laboratory - Hematology and Cell countsOrdered By: Sallie Powell on 04-08-2025 Hemoglobin (Bld) [Mass/Vol] 8.6 g/dL Low 13.5 - 17.5 g/dl [facility] Laboratory - Hematology and Cell countson 04-08-2025 Anisocytosis Ql (Bld) Moderate Abnormal (none) [facility] Basophils (Bld) [#/Vol] 0.1 10*3/uL 0.0 - 0.2 10*3/uL [facility] Basophils/100 WBC (Bld) 1 % 0 - 2 % S [facility] Hypochromia Ql (Bld) Moderate Abnormal (none) [facility] Lymphocytes (Bld) [#/Vol] 1.8 10*3/uL 1.0 - 4.3 10*3/uL [facility] Lymphocytes/100 WBC (Bld) 14 % Low 15 - 45 % [facility] Monocytes (Bld) [#/Vol] 1.6 10*3/uL High 0.0 - 0.9 10*3/uL [facility] Monocytes/100 WBC (Bld) 12 % 5 - 13 % [facility] Neutrophils (Bld) [#/Vol] 9.6 10*3/uL High 1.8 - 7.5 10*3/uL [facility] Ovalocytes LM Ql (Bld) Slight Abnormal (none) [facility] Poikilocytosis LM Ql (Bld) Moderate Abnormal (none) [facility] RBC morphology finding Nom (Bld) abnormal [facility] Segmented neutrophils/100 WBC (Bld) 74 % 38 - 82 % [facility] Stomatocytes LM Ql (Bld) Moderate Abnormal (none) [facility] MAGNESIUMon 04-08-2025 Magnesium [Mass/Vol] 1.6 mg/dL Normal 1.6-2.6 [facility] Comment on above: Result Comment: YARELI [place] COMMENTS:Higher values can be expected in females during menses. Performed By: #### L AB103, LAB17 ####Commissioner Conservation Of Resources: UNA ARCE ([phone])[facility] [place] (SB[facility]AB)[address] MANUAL DIFFERENTIAL (CELLAVI BANDAR)on 04-08-2025 ANISOCYTOSIS PRESENCE IN BLOOD BY LIGHT MICROSCOPY Moderate Abnormal (none) [facility] Comment on above: Performed By: #### L [id number], [id number] ####Commissioner Conservation Of Resources: UNA ARCE ([id number])[facility] [place] (SB[facility])[address] BAND NEUTROPHILS TOTAL PER COUNTED LEUKOCYTES BY MANUAL COUNT Normal [facility] Comment on above: Performed By: #### L [id number], [id number] ####Commissioner Conservation Of Resources: UNA ARCE ([phone])[facility] (SBHLAB)[address] [place] [address] [place] BASOPHILS (10*3/UL) IN BLOOD-CELLAVISION 0.1 10*3/uL Normal 0.0-0.2 [facility] Comment on above: Performed By: #### L [id number], [id number] ####Commissioner Conservation Of Resources: UNA ARCE ([phone])[facility] [place] (SBHLAB)[address] [place] [address] [place] BASOPHILS TOTAL PER COUNTED LEUKOCYTES BY MANUAL COUNT 1 Normal [facility] Comment on above: Performed By: #### L [id number], [id number] ####Commissioner Conservation Of Resources: UNA ARCE ([phone])[facility] [place] (SB[facility]AB)[address] [place] [address] [place] BASOPHILS/100 LEUKOCYTES IN BLOOD-CELLAVISION 1 % Normal 0-2 [facility] Comment on above: Performed By: #### L [id number], [id number] ####Commissioner Conservation Of Resources: UNA ARCE ([id number])[facility] [place] (SBHLAB)[address] [place] [address] [place] BLASTS TOTAL PER COUNTED LEUKOCYTES BY MANUAL COUNT Normal [facility] Comment on above: Performed By: #### L [id number], [id number] ####Commissioner Conservation Of Resources: UNA MOHRCER ([phone])[facility] [place] (SBHLAB)[address] [place] [address] [place] EOSINOPHILS TOTAL PER COUNTED LEUKOCYTES BY MANUAL COUNT Normal [facility] Comment on above: Performed By: #### L [id number], [id number] ####Commissioner Conservation Of Resources: UNA ARCE ([phone])[facility] [place] (SB[facility])[address] HYPOCHROMIA (PRESENCE) IN BLOOD BY LIGHT MICROSCOPY Moderate Abnormal (none) [facility] Comment on above: Performed By: #### L [id number], [id number] ####Commissioner Conservation Of Resources: UNAANJEL ARCE ([phone])[facility] [place] (SB[facility]AB)[address] [place] [address] [place] LYMPHOCYTES (10*3/UL) IN BLOOD-CELLAVISION 1.8 10*3/uL Normal 1.0-4.3 [facility] Comment on above: Performed By: #### L [id number], [id number] ####Commissioner Conservation Of Resources: UNAANJEL ARCE ([phone])[facility] [place] (SB[facility]AB)[address] [place] [address] [place] LYMPHOCYTES TOTAL PER COUNTED LEUKOCYTES BY MANUAL COUNT 14 Normal [facility] Comment on above: Performed By: #### L [id number], [id number] ####Commissioner Conservation Of Resources: UNA YAZMIN ([phone])[facility] [place] (SB[facility]AB)[address] [place] [address] [place] LYMPHOCYTES/100 LEUKOCYTES IN BLOOD-CELLAVISION 14 % Low 15-45 [facility] Comment on above: Performed By: #### L [id number], [id number] ####Commissioner Conservation Of Resources: UNA ARCE ([id number])[facility] [place] (SBHLAB)[address] [place] [address] [place] METAMYELOCYTES TOTAL PER COUNTED LEUKOCYTES BY MANUAL COUNT [facility] Comment on above: Performed By: #### L [id number], [id number] ####Commissioner Conservation Of Resources: UNA STAUFFERMELANIE ([phone])[facility] [place] (SB[facility]AB)[address] [place] [address] [place] MONOCYTES (10*3/UL) IN BLOOD-CELLAVISION 1.6 10*3/uL High 0.0-0.9 [facility] Comment on above: Performed By: #### L [id number], [id number] ####Commissioner Conservation Of Resources: UNA STAUFFERMELANIE ([phone])[facility] [place] (SB[facility])[address] [place] [address] [place] MONOCYTES TOTAL PER COUNTED LEUKOCYTES BY MANUAL COUNT 12 Normal [facility] Comment on above: Performed By: #### L [id number], [id number] ####Commissioner Conservation Of Resources: UNA STAUFFERMELANIE ([phone])[facility] [place] (SB[facility])[address] [place] [address] [place] MONOCYTES/100 LEUKOCYTES IN BLOOD-LUCIANA 12 % Normal -13 [facility] Comment on above: Performed By: #### L [id number], [id number] ####Commissioner Conservation Of Resources: UNA ARCE ([id number])[facility] [place] (SB[facility])[address] [place] [address] [place] MYELOCYTES COUNTED BY MANUAL COUNT [facility] Comment on above: Performed By: #### L [id number], [id number] ####Commissioner Conservation Of Resources: UNA ARCE ([id number])[facility] [place] (SB[facility])[address] [place] [address] [place] NEUTROPHILS TOTAL PER COUNTED LEUKOCYTES BY MANUAL COUNT 75 Normal [facility] Comment on above: Performed By: #### L [id number], [id number] ####Commissioner Conservation Of Resources: UNA ARCE ([phone])[facility] [place] (SBHLAB)[address] [place] [address] [place] OVALOCYTES PRESENCE IN BLOOD BY LIGHT MICROSCOPY Slight Abnormal (none) [facility] Comment on above: Performed By: #### L [id number], [id number] ####Commissioner Conservation Of Resources: UNA ARCE ([phone])[facility] [place] (SB[facility])[address] [place] [address] [place] POIKILOCYTOSIS (PRESENCE) IN BLOOD BY LIGHT MICROSCOPY Moderate Abnormal (none) [facility] Comment on above: Performed By: #### L [id number], [id number] ####Commissioner Conservation Of Resources: UNA ARCE ([phone])[facility] [place] (SB[facility])[address] [place] [address] [place] PROMYELOCYTES TOTAL PER COUNTED LEUKOCYTES BY MANUAL COUNT Normal [facility] Comment on above: Performed By: #### L [id number], [id number] ####Commissioner Conservation Of Resources: UNA ARCE ([phone])[facility] [place] (SB[facility])[address] [place] [address] [place] RBC MORPHOLOGY IN BLOOD abnormal Normal S [facility] Comment on above: Performed By: #### L [id number], [id number] ####Commissioner Conservation Of Resources: UNA ARCE ([id number])[facility] [place] ([facility])[address] [place] [address] [place] SEGMENTED NEUTROPHILS (10*3/UL) IN BLOOD-CELLAVISION 9.6 10*3/uL High 1.8-7.5 [facility] Comment on above: Performed By: #### L [id number], [id number] ####Commissioner Conservation Of Resources: UNA ARCE ([id number])[facility] [place] ([facility])[address] [place] [address] [place] SEGMENTED NEUTROPHILS/100 LEUKOCYTES-CE 74 % Normal 38-82 [facility] Comment on above: Performed By: #### L [id number], [id number] ####Commissioner Conservation Of Resources: UNA ARCE ([phone])[facility] [place] (SB[facility])[address] STOMATOCYTES IN BLOOD BY LIGHT MICROSCOPY Moderate Abnormal (none) [facility] Comment on above: Performed By: #### L [id number], [id number] ####Commissioner Conservation Of Resources: UNA ARCE ([id number])[facility] (SBHLAB)[address] UNCLASSIFIED CELLS TOTAL PER COUNTED LEUKOCYTES BY MANUAL COUNT Normal [facility] Comment on above: Performed By: #### L [id number], [id number] ####Commissioner Conservation Of Resources: UNA ARCE ([phone])[facility] (SBHLAB)[address] VARIANT LYMPHOCYTES TOTAL PER COUNTED LEUKOCYTES BY MANUAL COUNT Normal [facility] Comment on above: Performed By: #### L [id number], [id number] ####Commissioner Conservation Of Resources: UNA ARCE ([phone])[facility] (SBHLAB)[address] Magnesium [Mass/Vol]on 04-08 Interpretation and review of laboratory results Normal [facility] No Panel InformationOrdered By: Renay Chan on 04-08-2025 Amount Of Oxygen 0.40 [facility] Interpretation and review of laboratory results Abnormal [facility] Source Of Oxygen Non-Invasive Ventilator [facility] No Panel InformationOrdered By: Sallie Powell on 04-08-2025 Amount Of Oxygen 4 liters [facility] Interpretation and review of laboratory results Abnormal [facility] Source Of Oxygen Nasal Cannula (LPM) [facility] No Panel Informationon 04-08 Interpretation and review of laboratory results Normal [facility] Basophils Manual 1 [facility] Interpretation and review of laboratory results Abnormal [facility] Lymphocytes Manual 14 [facility] Monocytes Manual 12 [facility] Neutrophils Manual 75 [facility] Progress Noteon 04-08-[address] [facility] Progress Note Normal [facility] Progress Note Normal [facility] Progress Note Normal [facility] Progress Note Normal [facility] XR Chest Single viewon 04-08 [facility] RADI[facility] Radiology Study observation (narrative) [facility] XR Chest Single viewOrdered By: Nelson Sow on 04-08-2025 [facility] Work Phone: CBC W Auto Differential pane l (Bld)Ordered By: Sharita Beck on 04-07-2025 Erythrocyte distribution width (RBC) [Ratio] 20.5 % High 11.5 - 15.0 % [facility] Hematocrit (Bld) [Volume fraction] 27.2 % Low 40.0 - 52.0 % [facility] Hemoglobin (Bld) [Mass/Vol] 7.4 g/dL Low 13.0 - 18.0 g/dL [facility] MCH (RBC) [Entitic mass] 21.8 pg Low 26. 0 - 34.0 pg [facility] MCHC (RBC) [Mass/Vol] 27.2 % Low 30.5 - 36.0 % [facility] MCV (RBC) [Entitic vol] 80 fL 77.0 - 99.0 fL [facility] Platelet mean volume (Bld) [Entitic vol] 9.8 fL 9.0 - 12.7 fL [facility] Platelets (Bld) [#/Vol] 346 10*3/uL 140 - 440 10*3/uL [facility] RBC (Bld) [#/Vol] 3.4 10*6/uL Low 4.40 - 5.9 0 10*6/uL [facility] WBC (Bld) [#/Vol] 11.5 10*3/uL High 3.6 - 10.7 10*3/uL [facility] CBC WITH AUTO DIFFERENTIALon 04-07-2025 Erythrocyte distribution width (RBC) [Ratio] 20.5 % High 11.5-15.0 [facility] Comment on above: Performed By: #### L [id number], [id number] ####Commissioner Conservation Of Resources: UNA ARCE ([phone])[facility] ([facility])[address] [place] [address] Hematocrit (Bld) [Volume fraction] 27.2 % Low 40.0-52.0 [facility] Comment on above: Performed By: #### L [id number], [id number] ####Commissioner Conservation Of Resources: UNA ARCE ([phone])[facility] (SBHLAB)[address] Hemoglobin (Bld) [Mass/Vol] 7.4 g/dL Low 13.0-18.0 [facility] Comment on above: Performed By: #### L [id number], [id number] ####Commissioner Conservation Of Resources: UNA ARCE ([phone])[facility] (SBHLAB)[address] MCH (RBC) [Entitic mass] 21.8 pg Low 26.0-34.0 [facility] Comment on above: Performed By: #### L [id number], [id number] ####Commissioner Conservation Of Resources: UNA ARCE ([id number])[facility]ITALAngel S[facility]HEZCAR[facility]ENTERN (SBHLAB)[address] MCHC 27.2 % Low 30.5-36.0 [facility] Comment on above: Performed By: #### L [id number], [id number] ####Commissioner Conservation Of Resources: UNA ARCE ([id number])[facility]ITAL[facility] (SBHLAB)[address] MCV (RBC) [Entitic vol] 80.0 fL Normal 77.0-99.0 [facility] Comment on above: Performed By: #### L [id number], [id number] ####Commissioner Conservation Of Resources: UNA ARCE ([id number])[facility]ITAL[facility] (SBHLAB)[address] Platelet mean volume (Bld) [Entitic vol] 9.8 fL Normal 9.0-12.7 [facility] Comment on above: Performed By: #### L [id number], [id number] ####Commissioner Conservation Of Resources: UNA ARCE ([id number])[facility]ITALA BARBCARLSBAD MEDICAL CENTERN (SBHLAB)[address] Platelets (Bld) [#/Vol] 346 10*3/uL Normal 140-440 [facility] Comment on above: Performed By: #### L [id number], [id number] ####Commissioner Conservation Of Resources: UNA ARCE ([phone])LYNETTE BASHIRN (SBHLAB)[address] RBC (Bld) [#/Vol] 3.40 10*6/uL Low 4.40-5.90 [facility] Comment on above: Performed By: #### L [id number], [id number] ####Commissioner Conservation Of Resources: UNA ARCE ([id number])[facility]ITAL[facility] BASHIRN (SBHLAB)[address] WBC (Bld) [#/Vol] 11.5 10*3/uL High 3.6-10.7 [facility] Comment on above: Performed By: #### L [id number], [id number] ####Commissioner Conservation Of Resources: UNA ARCE ([phone])[facility]ITALAngel [facility] (SBHLAB)[address] COMPREHENSIVE METABOLIC PANE Anant 04-07-2025 Albumin [Mass/Vol] 2.4 g/dL Low 3.4-4.8 [facility] Comment on above: Performed By: #### L AB17, [id number] ####Commissioner Conservation Of Resources: UNA ARCE ([id number])[facility]ITALAngel BASHIRN (SBHLAB)[address] ALP [Catalytic activity/Vol] 57 U/L Normal 40-150 [facility] Comment on above: Performed By: #### L AB17, [id number] ####Commissioner Conservation Of Resources: UNA ARCE ([id number])[facility]ITAL[facility]CAR[facility] (SBHLAB)[address] ALT [Catalytic activity/Vol] U/L Normal <40 [facility] Comment on above: Performed By: #### L AB17, [id number] ####Commissioner Conservation Of Resources: UNA ARCE ([id number])[facility] [place] (SBHLAB)[address] Anion gap [Moles/Vol] 14 mmol/L High 3-13 [facility] Comment on above: Performed By: #### L AB17, [id number] ####Commissioner Conservation Of Resources: UNA ARCE ([phone])[facility] [place] (SBHLAB)[address] AST [Catalytic activity/Vol] 23 U/L Normal <34 [facility] Comment on above: Performed By: #### L AB17, [id number] ####Commissioner Conservation Of Resources: UNA ARCE ([phone])[facility] [place] (SBHLAB)[address] Bilirubin [Mass/Vol] 0.7 mg/dL Normal <1.2 [facility] Comment on above: Performed By: #### L AB17, [id number] ####Commissioner Conservation Of Resources: UNA ARCE ([phone])[facility] [place] (SBHLAB)[address] Calcium [Mass/Vol] 7.9 mg/dL Low 8.8-10.0 [facility] Comment on above: Performed By: #### L AB17, [id number] ####Commissioner Conservation Of Resources: UNA ARCE ([id number])[facility] [place] (SBHLAB)155 [place] [address] [place] Chloride [Moles/Vol] 98 mmol/L Normal 98-107 [facility] Comment on above: Performed By: #### L AB17, [id number] ####Commissioner Conservation Of Resources: UNA ARCE ([phone])[facility] [place] (SBHLAB)155 [place] [address] [place] CO2 [Moles/Vol] 31 mmol/L Normal 23-31 [facility] Comment on above: Performed By: #### L AB17, [id number] ####Commissioner Conservation Of Resources: UNA ARCE ([phone])[facility] [place] (SBHLAB)[address] Creatinine [Mass/Vol] 1.63 mg/dL High 0.72-1.25 [facility] Comment on above: Performed By: #### L AB17, [id number] ####Commissioner Conservation Of Resources: UNA ARCE ([phone])[facility]ITALAngel BASHIRN (SBHLAB)[address] GLOMERULAR FILTRATION RATE ML/MIN/1.73 SQ M.PREDICTED 40.0 mL/min/1.73m*2 Low >60.0 [facility] Comment on above: Result Comment: Calc ulation based on the Chronic Kidney Disease Epidemiology Collaboration (CKD-EPI) equation refit without adjustment for race Performed By: #### L AB17, [id number] ####Commissioner Conservation Of Resources: UNA ARCE ([phone])[facility]ITAL[facility]N (SBHLAB)[address] Glucose [Mass/Vol] 88 mg/dL Normal 82-115 [facility] Comment on above: Performed By: #### L AB17, [id number] ####Commissioner Conservation Of Resources: UNA ARCE ([id number])[facility]ITALAngel [facility] (SBHLAB)[address] Potassium [Moles/Vol] 3.6 mmol/L Normal 3.5-5.1 [facility] Comment on above: Result Comment: [facility] potassium values may be up to 0.5 mmol/L lower than serum values. Performed By: #### L AB17, [id number] ####Commissioner Conservation Of Resources: UNA ARCE ([phone])[facility]ITALAngel BASHIRN (SBHLAB)[address] Protein [Mass/Vol] 5.7 g/dL Low 6.4-8.3 [facility] Comment on above: Performed By: #### L AB17, [id number] ####Commissioner Conservation Of Resources: UNA ARCE ([id number])[facility]ITALAngel S[facility]ZCAR[facility]BAD [facility]ENTERN (SBHLAB)[address] [place] [address] [place] Sodium [Moles/Vol] 143 mmol/L Normal 136-145 [facility] Comment on above: Performed By: #### L AB17, [id number] ####Commissioner Conservation Of Resources: UNA ARCE ([phone])[facility] (SBHLAB)[address] Urea nitrogen [Mass/Vol] 26 mg/dL High 9-23 [facility] Comment on above: Performed By: #### L AB17, [id number] ####Commissioner Conservation Of Resources: UNA ARCE ([phone])[facility] (SBHLAB)[address] Comprehensive metabolic 1998 panelon 04-07-2025 Albumin [Mass/Vol] 2.4 g/dL Low 3.4 - 4.8 g/dL [facility] ALP [Catalytic activity/Vol] 57 U/L 40 - 150 U/L [facility] ALT [Catalytic activity/Vol] U/L NINF - 40 U/L [facility] Anion gap [Moles/Vol] 14 mmol/L High 3 - 13 mmol/L [facility] AST [Catalytic activity/Vol] 23 U/L NINF - 34 U/L [facility] Bilirubin [Mass/Vol] 0.7 mg/dL NINF - 1.2 mg/dL [facility] Calcium [Mass/Vol] 7.9 mg/dL Low 8.8 - 10. 0 mg/dL [facility] Chloride [Moles/Vol] 98 mmol/L 98 - 10 7 mmol/L [facility] CO2 [Moles/Vol] 31 mmol/L 23 - 31 mmol/L [facility] Creatinine [Mass/Vol] 1.63 mg/dL High 0.72 - 1.25 mg/dL [facility] GFR/1.73 sq M.predicted (S/P/Bld) [Vol rate/Area] 40 mL/min Low - PINF [facility] Glucose [Mass/Vol] 88 mg/dL 82 - 115 mg/dL [facility] Interpretation and review of laboratory results Abnormal [facility] Potassium [Moles/Vol] 3.6 mmol/L 3.5 - 5.1 mmol/L [facility] Protein [Mass/Vol] 5.7 g/dL Low 6.4 - 8.3 g/dL [facility] Sodium [Moles/Vol] 143 mmol/L 136 - 145 mmol/L [facility] Urea nitrogen [Mass/Vol] 26 mg/dL High 9 - 23 mg/d L [facility] Consulton 04-07-2025 Consult Normal [facility] Laboratory - Chemistry and C hemistry - challengeon 04-07-2025 Magnesium [Mass/Vol] 1.7 mg/dL 1.6 - 2 .6 mg/dL [facility] Laboratory - Hematology and Cell countson 04-07-2025 Anisocytosis Ql (Bld) Slight Abnormal (none) [facility] Eosinophils (Bld) [#/Vol] 0.3 10*3/uL 0.0 - 0.5 10*3/uL [facility] Eosinophils/100 WBC (Bld) 3 % 0 - 6 % [facility] Hypochromia Ql (Bld) Moderate Abnormal (none) [facility] Lymphocytes (Bld) [#/Vol] 0.9 10*3/uL Low 1.0 - 4.3 10*3/uL [facility] Lymphocytes/100 WBC (Bld) 8 % Low 15 - 45 % [facility] Monocytes (Bld) [#/Vol] 0.8 10*3/uL 0.0 - 0.9 10*3/uL [facility] Monocytes/100 WBC (Bld) 7 % 5 - 13 % [facility] Neutrophils (Bld) [#/Vol] 9.5 10*3/uL High 1.8 - 7.5 10*3/uL [facility] Nucleated RBC/100 WBC (Bld) [Ratio] 1 % 0 - 2 % [facility] Poikilocytosis LM Ql (Bld) Slight Abnormal (none) [facility] RBC morphology finding Nom (Bld) abnormal [facility] Segmented neutrophils/100 WBC (Bld) 83 % High 38 - 82 % [facility] Stomatocytes LM Ql (Bld) Moderate Abnormal (none) [facility] MAGNESIUMon 04-07-2025 Magnesium [Mass/Vol] 1.7 mg/dL Normal 1.6-2.6 [facility] Comment on above: Result Comment: ORDE R COMMENTS:Higher values can be expected in females during menses. Performed By: #### L AB17, [id number] ####Commissioner Conservation Of Resources: UNA ARCE ([phone])[facility] [place] (SBHLAB)[address] [place] [address] [place] MANUAL DIFFERENTIAL (CELLAVI BANDAR)on 04-07-2025 ANISOCYTOSIS PRESENCE IN BLOOD BY LIGHT MICROSCOPY Slight Abnormal (none) [facility] Comment on above: Performed By: #### L [id number], [id number] ####Commissioner Conservation Of Resources: UNA ARCE ([id number])[facility] [place] (SBHLAB)[address] BAND NEUTROPHILS TOTAL PER COUNTED LEUKOCYTES BY MANUAL COUNT Normal [facility] Comment on above: Performed By: #### L [id number], [id number] ####Commissioner Conservation Of Resources: UNA ARCE ([phone])[facility] [place] (SBHLAB)[address] BASOPHILS TOTAL PER COUNTED LEUKOCYTES BY MANUAL COUNT Normal [facility] Comment on above: Performed By: #### L [id number], [id number] ####Commissioner Conservation Of Resources: UNA ARCE ([phone])[facility] [place] (SBHLAB)[address] [place] [address] [place] BLASTS TOTAL PER COUNTED LEUKOCYTES BY MANUAL COUNT Normal [facility] Comment on above: Performed By: #### L [id number], [id number] ####Commissioner Conservation Of Resources: UNA ARCE ([id number])[facility] [place] (SBHLAB)155 [place] [address] [place] EOSINOPHILS (10*3/UL) IN BLOOD-CELLAVISION 0.3 10*3/uL Normal 0.0-0.5 [facility] Comment on above: Performed By: #### L IL6609, [id number] ####Commissioner Conservation Of Resources: UNA ARCE ([id number])[facility] [place] (SBHLAB)155 [place] [address] [place] EOSINOPHILS TOTAL PER COUNTED LEUKOCYTES BY MANUAL COUNT 3 High 0-1 [facility] Comment on above: Performed By: #### L [id number], [id number] ####Commissioner Conservation Of Resources: UNA STAUFFERMELANIE ([phone])[facility] [place] (SBHLAB)155 [place] [address] [place] EOSINOPHILS/100 LEUKOCYTES IN BLOOD-CELLAVISION 3 % Normal 0-6 [facility] Comment on above: Performed By: #### L [id number], [id number] ####Commissioner Conservation Of Resources: UNA STAUFFERMELANIE ([phone])[facility] [place] (SBHLAB)155 [place] [address] [place] HYPOCHROMIA (PRESENCE) IN BLOOD BY LIGHT MICROSCOPY Moderate Abnormal (none) [facility] Comment on above: Performed By: #### L [id number], [id number] ####Commissioner Conservation Of Resources: UNA BERMUDEZPEDRO ([phone])[facility] [place] (SBHLAB)[address] [place] [address] [place] LYMPHOCYTES (10*3/UL) IN BLOOD-CELLAVISION 0.9 10*3/uL Low 1.0-4.3 [facility] Comment on above: Performed By: #### L [id number], [id number] ####Commissioner Conservation Of Resources: UNA STAUFFERMELANIE ([phone])[facility] [place] (SBHLAB)155 [place] [address] [place] LYMPHOCYTES TOTAL PER COUNTED LEUKOCYTES BY MANUAL COUNT 8 Normal [facility] Comment on above: Performed By: #### L [id number], [id number] ####Commissioner Conservation Of Resources: UNA STAUFFERMELANIE ([phone])[facility] [place] (SBHLAB)155 [place] [address] [place] LYMPHOCYTES/100 LEUKOCYTES IN BLOOD-CELLAVISION 8 % Low 15-45 [facility] Comment on above: Performed By: #### L [id number], [id number] ####Commissioner Conservation Of Resources: UNA STAUFFERMELANIE ([phone])[facility] [place] (SBHLAB)155 [place] [address] [place] METAMYELOCYTES TOTAL PER COUNTED LEUKOCYTES BY MANUAL COUNT Normal [facility] Comment on above: Performed By: #### L [id number], [id number] ####Commissioner Conservation Of Resources: UNA STAUFFERMELANIE ([phone])[facility] [place] (SBHLAB)155 [place] [address] [place] MONOCYTES (10*3/UL) IN BLOOD-CELLAVISION 0.8 10*3/uL Normal 0.0-0.9 [facility] Comment on above: Performed By: #### L [id number], [id number] ####Commissioner Conservation Of Resources: UNA BERMUDEZPEDRO ([phone])[facility] [place] (SBHLAB)155 [place] [address] [place] MONOCYTES TOTAL PER COUNTED LEUKOCYTES BY MANUAL COUNT 7 Normal [facility] Comment on above: Performed By: #### L [id number], [id number] ####Commissioner Conservation Of Resources: UNA BERMUDEZPEDRO ([phone])[facility] [place] (SBHLAB)155 [place] [address] [place] MONOCYTES/100 LEUKOCYTES IN BLOOD-LUCIANA 7 % Normal 5-13 [facility] Comment on above: Performed By: #### L [id number], [id number] ####Commissioner Conservation Of Resources: UNA BERMUDEZPEDRO ([id number])[facility] [place] (SBHLAB)[address] MYELOCYTES COUNTED BY MANUAL COUNT [facility] Comment on above: Performed By: #### L [id number], [id number] ####Commissioner Conservation Of Resources: UNA ARCE ([phone])[facility] [place] (SBHLAB)155 [place] [address] [place] NEUTROPHILS TOTAL PER COUNTED LEUKOCYTES BY MANUAL COUNT 86 Normal [facility] Comment on above: Performed By: #### L [id number], [id number] ####Commissioner Conservation Of Resources: UNA ARCE ([id number])[facility] [place] (SBHLAB)155 [place] [address] [place] NUCLEATED ERYTHROCYTES/100 LEUKOCTES IN BLOOD-CELLAVISION 1 % Normal 0-2 [facility] Comment on above: Performed By: #### L [id number], [id number] ####Commissioner Conservation Of Resources: UNA ARCE ([phone])[facility]ITALAngel [place] (SBHLAB)155 [place] [address] [place] POIKILOCYTOSIS (PRESENCE) IN BLOOD BY LIGHT MICROSCOPY Slight Abnormal (none) [facility] Comment on above: Performed By: #### L [id number], [id number] ####Commissioner Conservation Of Resources: UNA ARCE ([phone])[facility] [place] (SBHLAB)155 [place] [address] [place] PROMYELOCYTES TOTAL PER COUNTED LEUKOCYTES BY MANUAL COUNT Normal [facility] Comment on above: Performed By: #### L [id number], [id number] ####Commissioner Conservation Of Resources: UNA ARCE ([phone])[facility]A [facility] (SBHLAB)[address] RBC MORPHOLOGY IN BLOOD abnormal Normal S [facility] Comment on above: Performed By: #### L [id number], [id number] ####Commissioner Conservation Of Resources: UNA ARCE ([phone])[facility] [place] (SBHLAB)[address] [place] [address] [place] SEGMENTED NEUTROPHILS (10*3/UL) IN BLOOD-CELLAVISION 9.5 10*3/uL High 1.8-7.5 [facility] Comment on above: Performed By: #### L [id number], [id number] ####Commissioner Conservation Of Resources: UNA ARCE ([id number])[facility]ITALAngel [place] (SBHLAB)155 [place] [address] [place] SEGMENTED NEUTROPHILS/100 LEUKOCYTES-CE 83 % High 38-82 [facility] Comment on above: Performed By: #### L [id number], [id number] ####Commissioner Conservation Of Resources: UNA ARCE ([phone])[facility] [place] (SBHLAB)[address] [place] [address] [place] STOMATOCYTES IN BLOOD BY LIGHT MICROSCOPY Moderate Abnormal (none) [facility] Comment on above: Performed By: #### L [id number], [id number] ####Commissioner Conservation Of Resources: UNA ARCE ([id number])[facility] (SBHLAB)[address] UNCLASSIFIED CELLS TOTAL PER COUNTED LEUKOCYTES BY MANUAL COUNT Normal [facility] Comment on above: Performed By: #### L [id number], [id number] ####Commissioner Conservation Of Resources: UNA BERMUDEZPEDRO ([phone])[facility] (SBHLAB)[address] VARIANT LYMPHOCYTES TOTAL PER COUNTED LEUKOCYTES BY MANUAL COUNT Normal [facility] Comment on above: Performed By: #### L [id number], [id number] ####Commissioner Conservation Of Resources: UNA STAUFFERMELANIE ([phone])[facility] (SBHLAB)[address] Magnesium [Mass/Vol]on 04-07 Interpretation and review of laboratory results Normal [facility] No Panel Informationon 04-07 Eosinophils Manual 3 High 0 - 1 [facility] Lymphocytes Manual 8 [facility] Monocytes Manual 7 [facility] Neutrophils Manual 86 [facility] No Panel InformationOrdered By: Sharita Beck on 04-07-2025 Interpretation and review of laboratory results Abnormal [facility] Progress Noteon 04-07-2025 Progress Note Normal [facility] Progress Note Normal [facility] Progress [facility] Normal [facility] Progress Note Normal [facility] Progress Note Normal [facility] [id number] 04-06-2025 [id number] Normal [facility] CBC W Auto Differential pane l (Bld)Ordered By: Annmarie Zuñiga on 04-06-2025 Hematocrit (Bld) [Volume fraction] 27.2 % Low 40.0 - 52.0 % [facility] Hemoglobin (Bld) [Mass/Vol] 7.6 g/dL Low 13.0 - 18.0 g/dL [facility] MCH (RBC) [Entitic mass] 22 pg Low 26. 0 - 34.0 pg [facility] MCV (RBC) [Entitic vol] 78.6 fL 77.0 - 99.0 fL [facility] RBC (Bld) [#/Vol] 3.46 10*6/uL Low 4.40 - 5.9 0 10*6/uL [facility] CBC WITH AUTO DIFFERENTIALon 04-06-2025 Erythrocyte distribution width (RBC) [Ratio] 20.5 % High 11.5-15.0 [facility] Comment on above: Performed By: #### L [id number], [id number] ####Commissioner Conservation Of Resources: UNA ARCE ([phone])[facility] (SBHLAB)[address] [place] [address] Hematocrit (Bld) [Volume fraction] 27.2 % Low 40.0-52.0 [facility] Comment on above: Performed By: #### L [id number], [id number] ####Commissioner Conservation Of Resources: UNA ARCE ([phone])[facility] ([facility] [place] [address] Hemoglobin (Bld) [Mass/Vol] 7.6 g/dL Low 13.0-18.0 [facility] Comment on above: Performed By: #### L [id number], [id number] ####Commissioner Conservation Of Resources: UNA ARCE ([phone])[facility] ([facility])[address] [place] [address] MCH (RBC) [Entitic mass] 22.0 pg Low 26.0-34.0 [facility] Comment on above: Performed By: #### L [id number], [id number] ####Commissioner Conservation Of Resources: UNA ARCE ([id number])[facility] (SBHLAB)[address] [place] [address] MCHC 27.9 % Low 30.5-36.0 [facility] Comment on above: Performed By: #### L [id number], [id number] ####Commissioner Conservation Of Resources: UNA ARCE ([id number])[facility] (SBHLAB)[address] [place] [address] MCV (RBC) [Entitic vol] 78.6 fL Normal 77.0-99.0 [facility] Comment on above: Performed By: #### L [id number], [id number] ####Commissioner Conservation Of Resources: UNA ARCE ([id number])LYNETTE BASHIRMarisol (SBHLAB)[address] [place] [address] Platelet mean volume (Bld) [Entitic vol] 9.7 fL Normal 9.0-12.7 [facility] Comment on above: Performed By: #### L [id number], [id number] ####Commissioner Conservation Of Resources: UNA ARCE ([id number])[facility] (SBHLAB)[address] Platelets (Bld) [#/Vol] 344 10*3/uL Normal 140-440 [facility] Comment on above: Performed By: #### L [id number], [id number] ####Commissioner Conservation Of Resources: UNA ARCE ([id number])[facility] (SBHLAB)[address] [place] [address] RBC (Bld) [#/Vol] 3.46 10*6/uL Low 4.40-5.90 [facility] Comment on above: Performed By: #### L [id number], [id number] ####Commissioner Conservation Of Resources: UNA ARCE ([phone])[facility]ITALAngel BASHIRMarisol (SBHLAB)[address] [place] [address] WBC (Bld) [#/Vol] 10.3 10*3/uL Normal 3.6-10.7 [facility] Comment on above: Performed By: #### L [id number], [id number] ####Commissioner Conservation Of Resources: UNA ARCE ([id number])[facility] (SBHLAB)[address] COMPREHENSIVE METABOLIC PANE Anant 04-06-2025 Albumin [Mass/Vol] 2.6 g/dL Low 3.4-4.8 [facility] Comment on above: Performed By: #### L AB17, [id number] ####Commissioner Conservation Of Resources: UNA ARCE ([phone])[facility] (SBHLAB)[address] ALP [Catalytic activity/Vol] 63 U/L Normal 40-150 [facility] Comment on above: Performed By: #### L AB17, [id number] ####Commissioner Conservation Of Resources: UNA ARCE ([phone])[facility] [place] (SBHLAB)[address] [place] [address] [place] ALT [Catalytic activity/Vol] 6 U/L Normal <40 [facility] Comment on above: Performed By: #### L AB17, [id number] ####Commissioner Conservation Of Resources: UNA ARCE ([id number])[facility] [place] (SBHLAB)[address] Anion gap [Moles/Vol] 13 mmol/L Normal 3-13 [facility] Comment on above: Performed By: #### L AB17, [id number] ####Commissioner Conservation Of Resources: UNA ARCE ([phone])[facility] [place] (SBHLAB)[address] AST [Catalytic activity/Vol] 25 U/L Normal <34 [facility] Comment on above: Performed By: #### L AB17, [id number] ####Commissioner Conservation Of Resources: UNA ARCE ([phone])[facility] [place] (SBHLAB)[address] Bilirubin [Mass/Vol] 1.7 mg/dL High <1.2 [facility] Comment on above: Performed By: #### L AB17, [id number] ####Commissioner Conservation Of Resources: UNA ARCE ([id number])[facility] [place] (SBHLAB)[address] [place] [address] [place] Calcium [Mass/Vol] 8.2 mg/dL Low 8.8-10.0 [facility] Comment on above: Performed By: #### L AB17, [id number] ####Commissioner Conservation Of Resources: UNA ARCE ([phone])[facility] [place] ([facility])[address] Chloride [Moles/Vol] 104 mmol/L Normal 98-107 [facility] Comment on above: Performed By: #### L AB17, [id number] ####Commissioner Conservation Of Resources: UNA ARCE ([id number])[facility] (SBHLAB)[address] CO2 [Moles/Vol] 26 mmol/L Normal 23-31 [facility] Comment on above: Performed By: #### L AB17, [id number] ####Commissioner Conservation Of Resources: UNA ARCE ([phone])[facility] (SBHLAB)[address] Creatinine [Mass/Vol] 1.44 mg/dL High 0.72-1.25 [facility] Comment on above: Performed By: #### L AB17, [id number] ####Commissioner Conservation Of Resources: UNA ARCE ([phone])[facility] (SBHLAB)[address] GLOMERULAR FILTRATION RATE ML/MIN/1.73 SQ M.PREDICTED 46.4 mL/min/1.73m*2 Low >60.0 [facility] Comment on above: Result Comment: Calc ulation based on the Chronic Kidney Disease Epidemiology Collaboration (CKD-EPI) equation refit without adjustment for race Performed By: #### L AB17, [id number] ####Commissioner Conservation Of Resources: UNA ARCE ([id number])[facility] (SBHLAB)[address] Glucose [Mass/Vol] 98 mg/dL Normal 82-115 [facility] Comment on above: Performed By: #### L AB17, [id number] ####Commissioner Conservation Of Resources: UNA ARCE ([id number])[facility] (SBHLAB)[address] Potassium [Moles/Vol] 4.2 mmol/L Normal 3.5-5.1 [facility] Comment on above: Result Comment: [facility] potassium values may be up to 0.5 mmol/L lower than serum values. Performed By: #### L AB17, [id number] ####Commissioner Conservation Of Resources: UNA MOHRCER ([phone])[facility] [place] ([facility])[address] Protein [Mass/Vol] 6.1 g/dL Low 6.4-8.3 [facility] Comment on above: Performed By: #### L AB17, [id number] ####Commissioner Conservation Of Resources: UNA BERMUDEZPEDRO ([phone])[facility] [place] (SB[facility])[address] Sodium [Moles/Vol] 143 mmol/L Normal 136-145 [facility] Comment on above: Performed By: #### L AB17, [id number] ####Commissioner Conservation Of Resources: UNA BERMUDEZPEDRO ([phone])[facility] [place] ([facility])[address] Urea nitrogen [Mass/Vol] 24 mg/dL High 9-23 [facility] Comment on above: Performed By: #### L AB17, [id number] ####Commissioner Conservation Of Resources: UNA BERMUDEZPEDRO ([phone])[facility] [place] ([facility])[address] ABDOMEN PELVIS WO IV CONT RASTon 04-06-2025 CT ABDOMEN PELVIS WO IV CONTRAST Normal [facility] CT Abdomen and Pelvis WO con traston 04-06-2025 [facility] Radiology Study observation (narrative) Lynette Balderrama alth CT Abdomen and Pelvis WO con trastOrdered By: Sergey Gooden on 04-06-2025 [facility] Phone: CT CHEST WO IV CONTRASTon CT CHEST WO IV CONTRAST Normal S [facility] CT Chest WO contraston 04-06 [facility] Radiology Study observation (narrative) Monishaangel Balderrama alth CT Chest WO contrastOrdered By: Cari Lazaro on 04-06-2025 [facility] Phone: Consulton 04-06-2025 Consult Normal [facility] Consult Normal [facility] ECG 12-LEADon 04-06-2025 ECG 12-LEAD IMPRESSION: Sinus arrhythmia Nonspecific intraventricular conduction delay Probable anterolateral infarct, old No previous ECG for comparison Electronically Signed On 04-06-2025 01:54:21 EDT by Maik Laird Normal [facility] IRON AND TIBCon 04-06-2025 IRON BINDING CAPACITY 381 ug/dL Normal 250-450 [facility] Comment on above: Performed By: #### L [id number] ####Commissioner Conservation Of Resources: UNA ARCE ([id number])[facility] [place] ([facility])[address] IRON SATURATION 49.3 % Normal 20.0-50.0 [facility] Comment on above: Performed By: #### L [id number] ####Commissioner Conservation Of Resources: UNA ARCE ([id number])[facility] [place] ([facility])[address] IRON, TOTAL 188 ug/dL High 65-175 [facility] Comment on above: Performed By: #### L [id number] ####Commissioner Conservation Of Resources: UNA ARCE ([id number])[facility] [place] ([facility])[address] Laboratory - Hematology and Cell countson 04-06-2025 Basophils (Bld) [#/Vol] 0.2 10*3/uL 0.0 - 0.2 10*3/uL [facility] Basophils/100 WBC (Bld) 2 % 0 - 2 % [facility] Lymphocytes (Bld) [#/Vol] 1.4 10*3/uL 1.0 - 4.3 10*3/uL [facility] Lymphocytes/100 WBC (Bld) 14 % Low 15 - 45 % [facility] Monocytes (Bld) [#/Vol] 0.7 10*3/uL 0.0 - 0.9 10*3/uL [facility] Monocytes/100 WBC (Bld) 7 % 5 - 13 % S [facility] RBC morphology finding Nom (Bld) abnormal [facility] MAGNESIUMon 04-06-2025 Magnesium [Mass/Vol] 1.8 mg/dL Normal 1.6-2.6 [facility] Comment on above: Result Comment: ORDE R COMMENTS:Higher values can be expected in females during menses. Performed By: #### L AB17, [id number] ####Commissioner Conservation Of Resources: UNA ARCE ([id number])[facility] (SBHLAB)[address] MANUAL DIFFERENTIAL (CELLAVI BANDAR)on 04-06-2025 ANISOCYTOSIS PRESENCE IN BLOOD BY LIGHT MICROSCOPY Moderate Abnormal (none) [facility] Comment on above: Performed By: #### L [id number], [id number] ####Commissioner Conservation Of Resources: UNA ARCE ([id number])[facility] (SBHLAB)[address] BAND NEUTROPHILS TOTAL PER COUNTED LEUKOCYTES BY MANUAL COUNT 1 Normal [facility] Comment on above: Performed By: #### L [id number], [id number] ####Commissioner Conservation Of Resources: UNA ARCE ([id number])[facility] [place] ([facility])[address] BANDS (10*3/UL) IN BLOOD-CELLAVISION 0.1 10*3/uL High <=0.0 [facility] Comment on above: Performed By: #### L [id number], [id number] ####Commissioner Conservation Of Resources: UNA ARCE ([id number])[facility] (SBHLAB)[address] [place] [address] [place] BASOPHILS (10*3/UL) IN BLOOD-CELLAVISION 0.2 10*3/uL Normal 0.0-0.2 [facility] Comment on above: Performed By: #### L [id number], [id number] ####Commissioner Conservation Of Resources: UNA ARCE ([id number])[facility] (SBHLAB)[address] BASOPHILS TOTAL PER COUNTED LEUKOCYTES BY MANUAL COUNT 2 Normal [facility] Comment on above: Performed By: #### L [id number], [id number] ####Commissioner Conservation Of Resources: UNA YAZMIN ([phone])[facility] [place] (SBHLAB)155 [place] [address] [place] BASOPHILS/100 LEUKOCYTES IN BLOOD-CELLAVISION 2 % Normal 0-2 [facility] Comment on above: Performed By: #### L [id number], [id number] ####Commissioner Conservation Of Resources: UNA BERMUDEZPEDRO ([phone])[facility] [place] (SB[facility])[address] [place] [address] [place] BLASTS TOTAL PER COUNTED LEUKOCYTES BY MANUAL COUNT Normal [facility] Comment on above: Performed By: #### L [id number], [id number] ####Commissioner Conservation Of Resources: UNA BERMUDEZPEDRO ([phone])[facility] [place] (SB[facility])[address] [place] [address] [place] EOSINOPHILS TOTAL PER COUNTED LEUKOCYTES BY MANUAL COUNT Normal [facility] Comment on above: Performed By: #### L [id number], [id number] ####Commissioner Conservation Of Resources: UNA BERMUDEZPEDRO ([id number])[facility] [place] (SB[facility])[address] [place] [address] [place] HYPOCHROMIA (PRESENCE) IN BLOOD BY LIGHT MICROSCOPY Moderate Abnormal (none) [facility] Comment on above: Performed By: #### L [id number], [id number] ####Commissioner Conservation Of Resources: UNA BERMUDEZPEDRO ([id number])[facility] [place] (SB[facility])[address] [place] [address] [place] LYMPHOCYTES (10*3/UL) IN BLOOD-CELLAVISION 1.4 10*3/uL Normal 1.0-4.3 [facility] Comment on above: Performed By: #### L [id number], [id number] ####Commissioner Conservation Of Resources: UNA BERMUDEZPEDRO ([phone])[facility] [place] (SB[facility])[address] [place] [address] [place] LYMPHOCYTES TOTAL PER COUNTED LEUKOCYTES BY MANUAL COUNT 14 Normal [facility] Comment on above: Performed By: #### L [id number], [id number] ####Commissioner Conservation Of Resources: UNA STAUFFERMELANIE ([phone])[facility] [place] (SBHLAB)155 [place] [address] [place] LYMPHOCYTES/100 LEUKOCYTES IN BLOOD-CELLAVISION 14 % Low 15-45 [facility] Comment on above: Performed By: #### L [id number], [id number] ####Commissioner Conservation Of Resources: UNA BERMUDEZPEDRO ([phone])[facility] [place] (SB[facility])[address] [place] [address] [place] METAMYELOCYTES TOTAL PER COUNTED LEUKOCYTES BY MANUAL COUNT Normal [facility] Comment on above: Performed By: #### L [id number], [id number] ####Commissioner Conservation Of Resources: UNA BERMUDEZPEDRO ([id number])[facility] [place] (SB[facility])[address] [place] [address] [place] MICROCYTES (PRESENCE) IN BLOOD BY LIGHT MICROSCOPY Slight Abnormal (none) [facility] Comment on above: Performed By: #### L [id number], [id number] ####Commissioner Conservation Of Resources: UNA BERMUDEZPEDRO ([id number])[facility] [place] (SB[facility])[address] [place] [address] [place] MONOCYTES (10*3/UL) IN BLOOD-CELLAVISION 0.7 10*3/uL Normal 0.0-0.9 [facility] Comment on above: Performed By: #### L [id number], [id number] ####Commissioner Conservation Of Resources: UNA ARCE ([id number])[facility] [place] ([facility])[address] [place] [address] [place] MONOCYTES TOTAL PER COUNTED LEUKOCYTES BY MANUAL COUNT 7 Normal [facility] Comment on above: Performed By: #### L [id number], [id number] ####Commissioner Conservation Of Resources: UNA STAUFFERMELANIE ([id number])[facility] [place] ([facility])[address] [place] [address] [place] MONOCYTES/100 LEUKOCYTES IN BLOOD-LUCIANA 7 % Normal 5-13 [facility] Comment on above: Performed By: #### L [id number], [id number] ####Commissioner Conservation Of Resources: UNA ARCE ([phone])[facility] [place] (SBHLAB)[address] [place] [address] [place] MYELOCYTES COUNTED BY MANUAL COUNT Normal [facility] Comment on above: Performed By: #### L [id number], [id number] ####Commissioner Conservation Of Resources: UNA ARCE ([phone])[facility] [place] (SBHLAB)155 [place] [address] [place] NEUTROPHILS BAND FORM/100 LEUKOCYTES IN BLOOD-CELLAVISI 1 % High <=0 [facility] Comment on above: Performed By: #### L [id number], [id number] ####Commissioner Conservation Of Resources: UNA ARCE ([id number])[facility] [place] ([facility])[address] [place] [address] [place] NEUTROPHILS TOTAL PER COUNTED LEUKOCYTES BY MANUAL COUNT 79 Normal [facility] Comment on above: Performed By: #### L [id number], [id number] ####Commissioner Conservation Of Resources: UNA ARCE ([phone])[facility] [place] (SBHLAB)155 [place] [address] [place] NUCLEATED ERYTHROCYTES/100 LEUKOCTES IN BLOOD-CELLAVISION 1 % Normal 0-2 [facility] Comment on above: Performed By: #### L [id number], [id number] ####Commissioner Conservation Of Resources: UNA ARCE ([id number])[facility] [place] (SB[facility])[address] [place] [address] [place] POIKILOCYTOSIS (PRESENCE) IN BLOOD BY LIGHT MICROSCOPY Slight Abnormal (none) [facility] Comment on above: Performed By: #### L [id number], [id number] ####Commissioner Conservation Of Resources: UNA ARCE ([id number])[facility] [place] ([facility])[address] [place] [address] [place] PROMYELOCYTES TOTAL PER COUNTED LEUKOCYTES BY MANUAL COUNT Normal [facility] Comment on above: Performed By: #### L [id number], [id number] ####Commissioner Conservation Of Resources: UNA ARCE ([phone])[facility] [place] (SBHLAB)155 [place] [address] [place] RBC MORPHOLOGY IN BLOOD abnormal Normal S [facility] Comment on above: Performed By: #### L [id number], [id number] ####Commissioner Conservation Of Resources: UNA ARCE ([id number])[facility] [place] ([facility])[address] [place] [address] [place] SEGMENTED NEUTROPHILS (10*3/UL) IN BLOOD-CELLAVISION 8.0 10*3/uL High 1.8-7.5 [facility] Comment on above: Performed By: #### L [id number], [id number] ####Commissioner Conservation Of Resources: UNA ARCE ([id number])[facility] [place] ([facility])[address] [place] [address] [place] SEGMENTED NEUTROPHILS/100 LEUKOCYTES-CE 77 % Normal 38-82 [facility] Comment on above: Performed By: #### L [id number], [id number] ####Commissioner Conservation Of Resources: UNA ARCE ([phone])[facility] [place] ([facility])[address] [place] [address] [place] STOMATOCYTES IN BLOOD BY LIGHT MICROSCOPY Slight Abnormal (none) [facility] Comment on above: Performed By: #### L [id number], [id number] ####Commissioner Conservation Of Resources: UNA ARCE ([id number])[facility] [place] ([facility])[address] [place] [address] [place] UNCLASSIFIED CELLS TOTAL PER COUNTED LEUKOCYTES BY MANUAL COUNT [facility] Comment on above: Performed By: #### L [id number], [id number] ####Commissioner Conservation Of Resources: UNA ARCE ([phone])[facility] [place] ([facility])[address] [place] [address] [place] VARIANT LYMPHOCYTES TOTAL PER COUNTED LEUKOCYTES BY MANUAL COUNT Normal [facility] Comment on above: Performed By: #### L [id number], [id number] ####Commissioner Conservation Of Resources: UNA ARCE ([id number])[facility] [place] (SB[facility])155 [place] [address] [facility] Nursing Noteon 04-06-2025 Nursing Note Normal [facility] Nursing Note Transfused two pint of blood. No any allergic reaction seen.vital signs are within normal limits. Normal [facility] Progress Noteon 04-06-2025 Progress Note Normal [facility] Progress Note Normal [facility] US Heart TransthoracicOrdere d By: Thomas Hinton on 04-06-2025 Ao Root Index 1.47 cm/m2 [facility] Work Phone: Aortic Root [address] [facility] Work Phone: Aortic valve Mean systole pressure gradient by US.doppler derived full Bernoulli 7 mmHg [facility] Work Phone: Aortic valve Orifice area by US 3.[address] [facility] Work Phone: Aortic valve Peak systolic flow by US.doppler 1.3 m/s [facility] Work Phone: Ascending [facility] Work Phone: Ascending Aorta Index 1.52 cm/m2 [facility] Work Phone: AV Area by Peak Velocity 1.[address] [facility] Work Phone: AV Area by VTI 1.3 cm2 [facility] Work Phone: AV Peak Gradient 15 mmHg [facility] Work Phone: AV Peak Velocity 1.9 m/s [facility] Work Phone: AV Velocity Ratio 0.47 [facility] Work Phone: AV VTI 37.[address] [facility] Work Phone: JULIET/BSA Peak Velocity 0.7 cm2/m2 [facility] Work Phone: JULIET/BSA VTI 0.6 cm2/m2 [facility] Work Phone: E/E' Lateral 23 [facility] Work Phone: Est. RA Pressure 15 mmHg [facility] Work Phone: Fractional Shortening 2D 8 % 28 - 44 % [facility] Work Phone: Interpretation and review of laboratory results Abnormal [facility] Work Phone: IVSd 1.1 cm Abnormal 0.6 - 1.0 cm [facility] Work Phone: LA Diameter 4 cm [facility] Work Phone: LA Size Index 1.96 cm/m2 [facility] Work Phone: LA Volume 4C 56 mL 18 - 58 mL [facility] Work Phone: LA Volume Index 4C 27 mL/m2 16 - 34 mL/m2 [facility] Work Phone: LA/AO Root Ratio 1.33 [facility] Work Phone: Left ventricular Ejection fraction by US.2D+Calculated by biplane method of disks 22 % Abnormal 55 - 100 % [facility] Work Phone: LV E' Lateral Velocity 5 cm/s [facility] Work Phone: LV EDV A2C [address] [facility] Work Phone: LV EDV A4C [address] [facility] Work Phone: LV EDV BP 315 mL Abnormal 67 - 155 mL [facility] Work Phone: LV EDV Index A2C 162 mL/m2 [facility] Work Phone: LV EDV Index A4C 144 mL/m2 [facility] Work Phone: LV EDV Index BP 154 mL/m2 [facility] Work Phone: LV Ejection Fraction A2C 26 % [facility] Work Phone: LV Ejection Fraction A4C 22 % [facility] Work Phone: LV ESV A2C 245 mL [facility] Work Phone: LV ESV A4C [address] [facility] Work Phone: LV ESV BP 247 mL Abnormal 22 - [address] [facility] Work Phone: LV ESV Index A2C 120 mL/m2 [facility] Work Phone: LV ESV Index A4C 112 mL/m2 [facility] Work Phone: LV ESV Index BP 121 mL/m2 [facility] Work Phone: LV Mass 2D 246.9 g Abnormal 88 - [address] [facility] Work Phone: LV Mass 2D Index 121 g/m2 Abnormal 49 - 115 g/m2 [facility] Work Phone: LV RWT Ratio 0.3 [facility] Work Phone: LVIDd 6 cm Abnormal 4.2 - 5.[address] [facility] Work Phone: LVIDd Index 2.94 cm/m2 [facility] Work Phone: LVIDs 5.[address] [facility] Work Phone: LVIDs Index 2.7 cm/m2 [facility] Work Phone: LVOT Cardiac Output 3.2 liter/minute [facility] Work Phone: LVOT Diameter 2 cm [facility] Work Phone: LVOT Mean Gradient [address] [facility] Work Phone: LVOT Peak Gradient [address] [facility] Work Phone: LVOT Peak Velocity 0.9 m/s [facility] Work Phone: LVOT Stroke Volume Index 23.2 mL/m2 [facility] Work Phone: LVOT SV 47.[address] [facility] Work Phone: LVOT VTI 15.[address] [facility] Work Phone: LVOT:AV VTI Index 0.4 [facility] Work Phone: LVPWd 0.9 cm 0.6 - 1.[address] [facility] Work Phone: MR VTI 139.[address] [facility] Work Phone: MV A Velocity 1.12 m/s [facility] Work Phone: MV E Velocity 1.15 m/s [facility] Work Phone: MV E Wave Deceleration Time 179.[address] [facility] Work Phone: MV E/A 1.03 [facility] Work Phone: MV Nyquist Velocity 36 cm/s [facility] Work Phone: MV Regurg Velocity PISA 4.6 m/s [facility] Work Phone: RA Area 4C 34.[address] [facility] Work Phone: RV Free Wall Peak S' 13 cm/s [facility] Work Phone: RVSP [address] [facility] Work Phone: TAPSE 2.[address] [facility] Work Phone: TR Max Velocity 3.58 m/s [facility] Work Phone: TR Peak Gradient [address] [facility] Work Phone: [facility] Work Phone: US Heart Transthoracicon CV CPACS BASIC METABOLIC PANELon 03-10 Anion gap [Moles/Vol] 8 mmol/L Normal 3-13 [facility] Comment on above: Performed By: #### L [id number], LAB15, [id number], LAB20, LAB69, [id number], [id number], LAB89 ####Commissioner Conservation Of Resources: UNA ARCE ([phone])[facility] (SB[facility])[address] Calcium [Mass/Vol] 8.4 mg/dL Low 8.8-10.0 [facility] Comment on above: Performed By: #### L AB67, LAB15, [id number], LAB20, LAB69, [id number], [id number], LAB89 ####Commissioner Conservation Of Resources: UNA ARCE ([id number])[facility] (SBHLAB)[address] Chloride [Moles/Vol] 105 mmol/L Normal 98-107 [facility] Comment on above: Performed By: #### L AB67, LAB15, [id number], LAB20, LAB69, [id number], [id number], LAB89 ####Commissioner Conservation Of Resources: UNA ARCE ([phone])[facility] (SBHLAB)[address] CO2 [Moles/Vol] 27 mmol/L Normal 23-31 [facility] Comment on above: Performed By: #### L AB67, LAB15, [id number], LAB20, LAB69, [id number], [id number], LAB89 ####Commissioner Conservation Of Resources: UNA ARCE ([phone])[facility] (SBHLAB)[address] Creatinine [Mass/Vol] 1.46 mg/dL High 0.72-1.25 [facility] Comment on above: Performed By: #### L AB67, LAB15, [id number], LAB20, LAB69, [id number], [id number], LAB89 ####Commissioner Conservation Of Resources: UNA ARCE ([phone])[facility] (SBHLAB)[address] GLOMERULAR FILTRATION RATE ML/MIN/1.73 SQ M.PREDICTED 45.7 mL/min/1.73m*2 Low >60.0 [facility] Comment on above: Result Comment: Calc ulation based on the Chronic Kidney Disease Epidemiology Collaboration (CKD-EPI) equation refit without adjustment for race Performed By: #### L AB67, LAB15, [id number], LAB20, LAB69, [id number], [id number], LAB89 ####Commissioner Conservation Of Resources: UNA ARCE ([phone])[facility] (SBHLAB)[address] Glucose [Mass/Vol] 108 mg/dL Normal 82-115 [facility] Comment on above: Performed By: #### L AB67, LAB15, [id number], LAB20, LAB69, [id number], [id number], LAB89 ####Commissioner Conservation Of Resources: UNA ARCE ([id number])[facility] (SBHLAB)[address] Potassium [Moles/Vol] 4.5 mmol/L Normal 3.5-5.1 [facility] Comment on above: Result Comment: [facility] potassium values may be up to 0.5 mmol/L lower than serum values. Performed By: #### L AB67, LAB15, [id number], LAB20, LAB69, [id number], [id number], LAB89 ####Commissioner Conservation Of Resources: UNA ARCE ([phone])[facility] Sodium [Moles/Vol] 140 mmol/L Normal 136-145 [facility] Comment on above: Performed By: #### L AB67, LAB15, [id number], LAB20, LAB69, [id number], [id number], LAB89 ####Commissioner Conservation Of Resources: UNA ARCE ([id number])[facility] (HLAB)[address] Urea nitrogen [Mass/Vol] 24 mg/dL High 9-23 [facility] Comment on above: Performed By: #### L AB67, LAB15, [id number], LAB20, LAB69, [id number], [id number], LAB89 ####Commissioner Conservation Of Resources: UNA ARCE ([phone])[facility] (HLAB)[address] BLOOD TYPE AND SCREEN GELon 04-05-2025 ABO GROUPING A Normal [facility] Comment on above: Performed By: #### L [id number] ####Commissioner Conservation Of Resources: UNA ARCE ([phone])[facility] ([facility])[address] [place] [address] RH TYPE IN BLOOD Negative Normal [facility] Comment on above: Performed By: #### L AB276 ####Commissioner Conservation Of Resources: UNA ARCE ([phone])[facility] ([facility])[address] CBC WITH AUTO DIFFERENTIALon 04-05-2025 Erythrocyte distribution width (RBC) [Ratio] 19.9 % High 11.5-15.0 [facility] Comment on above: Performed By: #### L AB296, [id number], [id number] ####Commissioner Conservation Of Resources: UNA ARCE ([phone])[facility] ([facility])[address] [place] [address] Hematocrit (Bld) [Volume fraction] 20.7 % Low 40.0-52.0 [facility] Comment on above: Performed By: #### L AB296, [id number], [id number] ####Commissioner Conservation Of Resources: UNA ARCE ([id number])[facility] ([facility])[address] [place] [address] Hemoglobin (Bld) [Mass/Vol] 5.5 g/dL Critically low 13.0-18.0 [facility] Comment on above: Performed By: #### L AB296, [id number], [id number] ####Commissioner Conservation Of Resources: UNA ARCE ([phone])[facility] [place] [address] MCH (RBC) [Entitic mass] 19.4 pg Low 26.0-34.0 [facility] Comment on above: Performed By: #### L AB296, [id number], [id number] ####Commissioner Conservation Of Resources: UNA ARCE ([id number])[facility] ([facility])[address] MCHC 26.6 % Low 30.5-36.0 [facility] Comment on above: Performed By: #### L AB296, [id number], [id number] ####Commissioner Conservation Of Resources: UNA ARCE ([id number])[facility] ([facility])[address] MCV (RBC) [Entitic vol] 73.1 fL Low 77.0-99.0 [facility] Comment on above: Performed By: #### L AB296, [id number], [id number] ####Commissioner Conservation Of Resources: UNA ARCE ([id number])[facility] ([facility])[address] Platelet mean volume (Bld) [Entitic vol] 9.4 fL Normal 9.0-12.7 [facility] Comment on above: Performed By: #### Gilbert AB296, [id number], [id number] ####Commissioner Conservation Of Resources: UNA ARCE ([id number])[facility] ([facility])[address] Platelets (Bld) [#/Vol] 358 10*3/uL Normal 140-440 [facility] Comment on above: Performed By: #### L AB296, [id number], [id number] ####Commissioner Conservation Of Resources: UNA ARCE ([id number])[facility] ([facility])[address] RBC (Bld) [#/Vol] 2.83 10*6/uL Low 4.40-5.90 [facility] Comment on above: Performed By: #### L AB296, [id number], [id number] ####Commissioner Conservation Of Resources: UNA ARCE ([phone])[facility] [place] ([facility])[address] WBC (Bld) [#/Vol] 10.0 10*3/uL Normal 3.6-10.7 [facility] Comment on above: Performed By: #### L AB296, [id number], [id number] ####Commissioner Conservation Of Resources: UNA ARCE ([phone])[facility] ([facility])[address] [place] [address] ED Provider Noteon ED Provider Note Normal [facility] FERRITINon 04-05-2025 Ferritin [Mass/Vol] 19 ng/mL Low 22-275 [facility] Comment on above: Result Comment: YARELI [place] COMMENTS:Ferritin levels below 10 ng/mL have been reported as indicative of iron deficiency anemia. Performed By: #### L [id number], LAB18, LAB68 ####Commissioner Conservation Of Resources: UNA ARCE ([id number])[facility] ([facility])[address] [place] [address] FOLATEon 04-05-2025 FOLATE RESULT 13.7 ng/mL Normal 7.0-31.4 [facility] Comment on above: Performed By: #### L AB67, LAB15, VLN337, LAB20, LAB69, SCQ883, [id number], LAB89 ####Commissioner Conservation Of Resources: UNA ARCE ([phone])[facility] ([facility])[address] [place] [address] HAPTOGLOBINon 04-05-2025 HAPTOGLOBIN 226 mg/dL Normal 50-270 [facility] Comment on above: Performed By: #### L AB67, LAB15, RTA805, LAB20, LAB69, GBA601, [id number], LAB89 ####Commissioner Conservation Of Resources: UAN ARCE ([phone])[facility] ([facility])[address] [place] [address] HEPATIC FUNCTION PANELon Albumin [Mass/Vol] 2.7 g/dL Low 3.4-4.8 [facility] Comment on above: Performed By: #### L AB67, LAB15, PMC310, LAB20, LAB69, YQG564, [id number], LAB89 ####Commissioner Conservation Of Resources: UNA ARCE ([id number])[facility] ([facility])[address] ALP [Catalytic activity/Vol] 65 U/L Normal 40-150 [facility] Comment on above: Performed By: #### L AB67, LAB15, IXY066, LAB20, LAB69, RYG172, [id number], LAB89 ####Commissioner Conservation Of Resources: UNA ARCE ([id number])[facility] ([facility])[address] ALT [Catalytic activity/Vol] 7 U/L Normal <40 [facility] Comment on above: Performed By: #### L AB67, LAB15, WZM995, LAB20, LAB69, JAH160, [id number], LAB89 ####Commissioner Conservation Of Resources: UNA ARCE ([id number])[facility] ([facility])[address] AST [Catalytic activity/Vol] 22 U/L Normal <34 [facility] Comment on above: Performed By: #### L AB67, LAB15, PRV205, LAB20, LAB69, TID747, [id number], LAB89 ####Commissioner Conservation Of Resources: UNA ARCE ([phone])[facility] ([facility])[address] Bilirubin [Mass/Vol] 0.5 mg/dL Normal <1.2 [facility] Comment on above: Performed By: #### L AB67, LAB15, GKG267, LAB20, LAB69, HWE153, [id number], LAB89 ####Commissioner Conservation Of Resources: UNA ARCE ([id number])[facility] ([facility])[address] [place] [address] [place] Bilirubin.indirect [Mass/Vol] 0.2 mg/dL Normal <0.5 [facility] Comment on above: Performed By: #### L AB67, LAB15, AYL175, LAB20, LAB69, UND729, [id number], LAB89 ####Commissioner Conservation Of Resources: UNA ARCE ([phone])[facility] ([facility])[address] [place] [address] Protein [Mass/Vol] 6.4 g/dL Normal 6.4-8.3 [facility] Comment on above: Result Comment: Seru m protein values are higher than plasma values. Samples from recumbent persons are lower by up to 0.5 g/dL as compared to ambulatory persons. After 60 years values are lower by up to 0.2 g/dL. Performed By: #### L AB67, LAB15, JQZ343, LAB20, LAB69, LDP670, [id number], LAB89 ####Commissioner Conservation Of Resources: UNA ARCE ([phone])[facility] ([facility])[address] [place] [address] HIGH SENSITIVITY TROPONIN, S ERIAL BASELINEon 04-05-2025 TROPONIN HS SERIAL BASELINE 29 ng/L Normal <=35 [facility] Comment on above: Result Comment: In i ndividuals presenting with symptoms > 2h, a baseline troponin <= 5 ng/L suggests acutecardiac injury is unlikely and further serial testing is generally not indicated. Performed By: #### L [id number] ####Commissioner Conservation Of Resources: UNA ARCE ([phone])[facility] ([facility])[address] [place] [address] TROPONIN HS SERIAL BASELINE 30 ng/L Normal <=35 [facility] Comment on above: Result Comment: In i ndividuals presenting with symptoms > 2h, a baseline troponin <= 5 ng/L suggests acutecardiac injury is unlikely and further serial testing is generally not indicated. Performed By: #### L AB67, LAB15, NYN172, LAB20, LAB69, JYG080, [id number], LAB89 ####Commissioner Conservation Of Resources: UNA ARCE ([phone])[facility] ([facility])[address] [place] [address] HIGH SENSITIVITY TROPONIN, S ERIAL, SECOND TESTon 04-05-2025 2H TROPONIN HS (SERIAL 2ND TROPONIN) 28 ng/L Normal <=35 [facility] Comment on above: Result Comment: 2h t roponin (2nd troponin) samples collected between 1h 40 min and 2h and 20 min of the baseline collection time can be utilized to interpret delta troponins as per [facility] algorithms. Samples collected outside this timeframe need to be interpreted clinically.Rising or falling troponin delta below 2 ng/L as compared to baseline value suggests thatacute cardiac injury is unlikely. Performed By: #### L [id number], LAB18, LAB68 ####Commissioner Conservation Of Resources: UNA ARCE ([id number])[facility] [place] ([facility])[address] LIPID PANELon 04-05-2025 Cholesterol [Mass/Vol] 89 mg/dL Normal <200 [facility] Comment on above: Performed By: #### Gilbert [id number], LAB18, LAB68 ####Commissioner Conservation Of Resources: UNA ARCE ([phone])[facility] [place] ([facility])[address] Cholesterol in HDL [Mass/Vol] 29 mg/dL Low >=60 [facility] Comment on above: Performed By: #### Gilbert [id number], LAB18, LAB68 ####Commissioner Conservation Of Resources: UNA ARCE ([phone])[facility] ([facility])[address] Cholesterol.total/Choles terol in HDL [Mass ratio] 3 {ratio} Normal [facility] Comment on above: Result Comment: Ref Range:< 3 Low Risk for CHD3-6 Mod Risk for CHD> 6 High Risk for CHD Performed By: #### L [id number], LAB18, LAB68 ####Commissioner Conservation Of Resources: UNA ARCE ([phone])[facility] ([facility])[address] LOW DENSITY LIPOPROTEIN 48 mg/dL Normal 0-<100 [facility] Comment on above: Performed By: #### L [id number], LAB18, LAB68 ####Commissioner Conservation Of Resources: UNA ARCE ([phone])[facility] ([facility])[address] NON-HDL CHOLESTEROL, CALCULATED 60 Normal <130 [facility] Comment on above: Performed By: #### L [id number], LAB18, LAB68 ####Commissioner Conservation Of Resources: UNA ARCE ([phone])[facility] [place] ([facility])[address] Triglyceride [Mass/Vol] 60 mg/dL Normal <150 [facility] Comment on above: Performed By: #### L [id number], LAB18, LAB68 ####Commissioner Conservation Of Resources: UNA ARCE ([phone])[facility] ([facility])[address] VERY LOW DENSITY LIPOPROTEIN, CALCULATED 12 mg/dL Normal <=30 [facility] Comment on above: Performed By: #### L [id number], LAB18, LAB68 ####Commissioner Conservation Of Resources: UNA ARCE ([id number])[facility] [place] ([facility])[address] MANUAL DIFFERENTIAL (CELLAVI BANDAR)on 04-05-2025 ANISOCYTOSIS PRESENCE IN BLOOD BY LIGHT MICROSCOPY Moderate Abnormal (none) [facility] Comment on above: Performed By: #### L AB296, [id number], [id number] ####Commissioner Conservation Of Resources: UNA ARCE ([id number])[facility] ([facility])[address] [place] [address] BAND NEUTROPHILS TOTAL PER COUNTED LEUKOCYTES BY MANUAL COUNT [facility] Comment on above: Performed By: #### L AB296, [id number], [id number] ####Commissioner Conservation Of Resources: UNA ARCE ([phone])[facility] [place] ([facility])[address] BASOPHILS TOTAL PER COUNTED LEUKOCYTES BY MANUAL COUNT [facility] Comment on above: Performed By: #### L AB296, [id number], [id number] ####Commissioner Conservation Of Resources: UNA ARCE ([id number])[facility] [place] ([facility])[address] [place] [address] [place] BLASTS TOTAL PER COUNTED LEUKOCYTES BY MANUAL COUNT Normal [facility] Comment on above: Performed By: #### L AB296, [id number], [id number] ####Commissioner Conservation Of Resources: UNA ARCE ([phone])[facility] [place] ([facility])[address] EOSINOPHILS TOTAL PER COUNTED LEUKOCYTES BY MANUAL COUNT Normal [facility] Comment on above: Performed By: #### L AB296, [id number], [id number] ####Commissioner Conservation Of Resources: UNA ARCE ([phone])[facility] [place] ([facility])[address] HYPOCHROMIA (PRESENCE) IN BLOOD BY LIGHT MICROSCOPY Moderate Abnormal (none) [facility] Comment on above: Performed By: #### L AB296, [id number], [id number] ####Commissioner Conservation Of Resources: UNA ARCE ([id number])[facility] [place] ([facility])[address] [place] [address] [place] LYMPHOCYTES (10*3/UL) IN BLOOD-CELLAVISION 1.4 10*3/uL Normal 1.0-4.3 [facility] Comment on above: Performed By: #### L AB296, [id number], [id number] ####Commissioner Conservation Of Resources: UNA ARCE ([phone])[facility] [place] ([facility])[address] [place] [address] [place] LYMPHOCYTES TOTAL PER COUNTED LEUKOCYTES BY MANUAL COUNT 15 Normal [facility] Comment on above: Performed By: #### L AB296, [id number], [id number] ####Commissioner Conservation Of Resources: UNA ARCE ([phone])[facility] [place] ([facility])[address] [place] [address] [place] LYMPHOCYTES/100 LEUKOCYTES IN BLOOD-CELLAVISION 14 % Low 15-45 [facility] Comment on above: Performed By: #### L AB296, [id number], [id number] ####Commissioner Conservation Of Resources: UNA ARCE ([id number])[facility] [place] ([facility])[address] [place] [address] [place] METAMYELOCYTES TOTAL PER COUNTED LEUKOCYTES BY MANUAL COUNT Normal [facility] Comment on above: Performed By: #### L AB296, [id number], [id number] ####Commissioner Conservation Of Resources: UNA BERMUDEZPEDRO ([phone])[facility] [place] ([facility])[address] [place] [address] [place] MICROCYTES (PRESENCE) IN BLOOD BY LIGHT MICROSCOPY Slight Abnormal (none) [facility] Comment on above: Performed By: #### L AB296, [id number], [id number] ####Commissioner Conservation Of Resources: UNA BERMUDEZPEDRO ([phone])[facility] [place] ([facility])[address] [place] [address] [place] MONOCYTES (10*3/UL) IN BLOOD-CELLAVISION 1.3 10*3/uL High 0.0-0.9 [facility] Comment on above: Performed By: #### L AB296, [id number], [id number] ####Commissioner Conservation Of Resources: UNA BERMUDEZPEDRO ([id number])[facility] [place] ([facility])[address] [place] [address] [place] MONOCYTES TOTAL PER COUNTED LEUKOCYTES BY MANUAL COUNT 14 Normal [facility] Comment on above: Performed By: #### L AB296, [id number], [id number] ####Commissioner Conservation Of Resources: UNA BERMUDEZPEDRO ([id number])[facility] [place] ([facility])[address] [place] [address] [place] MONOCYTES/100 LEUKOCYTES IN BLOOD-LUCIANA 13 % Normal 5-13 [facility] Comment on above: Performed By: #### L AB296, [id number], [id number] ####Commissioner Conservation Of Resources: UNA STAUFFERMELANIE ([phone])[facility] [place] ([facility])[address] [place] [address] [place] MYELOCYTES COUNTED BY MANUAL COUNT Normal [facility] Comment on above: Performed By: #### L AB296, [id number], [id number] ####Commissioner Conservation Of Resources: UNA YAZMIN ([id number])[facility] [place] ([facility])[address] [place] [address] [place] NEUTROPHILS TOTAL PER COUNTED LEUKOCYTES BY MANUAL COUNT 76 Normal [facility] Comment on above: Performed By: #### L AB296, [id number], [id number] ####Commissioner Conservation Of Resources: UNA YAZMIN ([id number])[facility] [place] ([facility])[address] [place] [address] [place] NUCLEATED ERYTHROCYTES/100 LEUKOCTES IN BLOOD-CELLAVISION 1 % Normal 0-2 [facility] Comment on above: Performed By: #### L AB296, [id number], [id number] ####Commissioner Conservation Of Resources: UNAANJEL ARCE ([id number])[facility] [place] ([facility])[address] [place] [address] [place] OVALOCYTES PRESENCE IN BLOOD BY LIGHT MICROSCOPY Slight Abnormal (none) [facility] Comment on above: Performed By: #### L AB296, [id number], [id number] ####Commissioner Conservation Of Resources: UNA YAZMIN ([phone])[facility] [place] ([facility])[address] [place] [address] [place] POIKILOCYTOSIS (PRESENCE) IN BLOOD BY LIGHT MICROSCOPY Moderate Abnormal (none) [facility] Comment on above: Performed By: #### L AB296, [id number], [id number] ####Commissioner Conservation Of Resources: UNA YAZMIN ([id number])[facility] [place] ([facility])[address] [place] [address] [place] PROMYELOCYTES TOTAL PER COUNTED LEUKOCYTES BY MANUAL COUNT Normal [facility] Comment on above: Performed By: #### L AB296, [id number], [id number] ####Commissioner Conservation Of Resources: UNA YAZMIN ([id number])[facility] [place] ([facility])[address] [place] [address] [place] RBC MORPHOLOGY IN BLOOD abnormal Normal [facility] Comment on above: Performed By: #### L AB296, [id number], [id number] ####Commissioner Conservation Of Resources: UNA ARCE ([id number])[facility] [place] ([facility])[address] [place] [address] [place] SEGMENTED NEUTROPHILS (10*3/UL) IN BLOOD-CELLAVISION 7.2 10*3/uL Normal 1.8-7.5 [facility] Comment on above: Performed By: #### L AB296, [id number], [id number] ####Commissioner Conservation Of Resources: UNA ARCE ([phone])[facility] [place] ([facility])[address] [place] [address] [place] SEGMENTED NEUTROPHILS/100 LEUKOCYTES-CE 72 % Normal 38-82 [facility] Comment on above: Performed By: #### L AB296, [id number], [id number] ####Commissioner Conservation Of Resources: UNA ARCE ([phone])[facility] [place] ([facility])[address] [place] [address] [place] STOMATOCYTES IN BLOOD BY LIGHT MICROSCOPY Moderate Abnormal (none) [facility] Comment on above: Performed By: #### L AB296, [id number], [id number] ####Commissioner Conservation Of Resources: UNA ARCE ([phone])[facility] [place] ([facility])[address] TARGET CELLS IN BLOOD BY LIGHT MICROSCOPY Slight Abnormal (none) [facility] Comment on above: Performed By: #### L AB296, [id number], [id number] ####Commissioner Conservation Of Resources: UNA ARCE ([id number])[facility] [place] ([facility])[address] [place] [address] [place] UNCLASSIFIED CELLS TOTAL PER COUNTED LEUKOCYTES BY MANUAL COUNT Normal [facility] Comment on above: Performed By: #### L AB296, [id number], [id number] ####Commissioner Conservation Of Resources: UNA ARCE ([id number])[facility] [place] ([facility])[address] [place] [address] [place] VARIANT LYMPHOCYTES TOTAL PER COUNTED LEUKOCYTES BY MANUAL COUNT Normal [facility] Comment on above: Performed By: #### L AB296, [id number], [id number] ####Commissioner Conservation Of Resources: UNA ARCE ([id number])LYNETTE BASHIRMarisol ([facility])[address] NT PRO BNPon 04-05-2025 Natriuretic peptide B (Bld) [Mass/Vol] 8438 pg/mL High <450 [facility] Comment on above: Performed By: #### L AB67, LAB15, [id number], LAB20, LAB69, MKM189, [id number], LAB89 ####Commissioner Conservation Of Resources: UNA ARCE ([phone])[facility] ([facility])[address] RETICULOCYTESon 04-05-2025 Reticulocytes/100 RBC (Bld) 2.31 % Normal [facility] Comment on above: Result Comment: Newb orn < 5%Adults 0.4 - 2.0% Performed By: #### L AB296, [id number], [id number] ####Commissioner Conservation Of Resources: UNA ARCE ([phone])[facility] ([facility])[address] THYROID STIMULATING HORMONEo n 04-05-2025 THYROID STIMULATING HORMONE 10.19 uIU/mL High 0.35-4.94 [facility] Comment on above: Performed By: #### L AB67, LAB15, YYG485, LAB20, LAB69, WYS399, [id number], LAB89 ####Commissioner Conservation Of Resources: UNA ARCE ([id number])[facility] ([facility])[address] VITAMIN B12on 04-05-2025 Cobalamin (Vitamin B12) [Mass/Vol] 817 pg/mL High 213-816 [facility] Comment on above: Performed By: #### L AB67, LAB15, ROQ047, LAB20, LAB69, [id number], [id number], LAB89 ####Commissioner Conservation Of Resources: UNA ARCE ([phone])LYNETTE ESCOTO ([facility])[address] Vital Signs Date Time Vital Sign Value Performing Clinician Annalisai gerson 07-19-2025 19:12-0500 Diastolic blood pressure 78 mm[Hg] Josefina Rose MD Work Phone: [facility] [employer] 07-19-2025 19:12-0500 Heart rate 75 /min Josefina Rose MD Work Phone: [facility] [employer] 07-19-2025 19:12-0500 Respiratory rate 17 /min Josefina Rose MD Work Phone: [facility] [employer] 07-19-2025 19:12-0500 SaO2% (BldA) [Mass fraction] 100 % Josefina Rose MD Work Phone: [facility] 07-19-2025 19:12-0500 Systolic blood pressure 117 mm[Hg] Josefina Rose MD Work Phone: [facility] [employer] 07-19-2025 17:02-0500 Body temperature 98.1 [degF] Josefina Rose MD Work Phone: [facility] [employer] 06-22-2025 02:11-0400 Diastolic blood pressure 57 mm[Hg] Sagar Gombash DO [facility] 06-22-2025 02:11-0400 Heart rate 54 /min Sagar Gombash DO Work Phone: [employer] 06-22-2025 02:11-0400 Respiratory rate 18 /min Sagar Gombash DO Work Phone: [facility] [employer] 06-22-2025 02:11-0400 SaO2% (BldA) [Mass fraction] 97 % Sagar Gombash DO Work Phone: [employer] 06-22-2025 02:11-0400 Systolic blood pressure 105 mm[Hg] Sagar Gombash DO Work Phone: [facility] [employer] 06-22-2025 00:31-0400 Body temperature 98.2 [degF] Sagar Gombash DO Work Phone: [facility] [employer] 06-17-2025 10:47-0400 SaO2% (BldA) [Mass fraction] 95 % Eber Hess MD Work Phone: [facility] [employer] 06-17-2025 10:27-0400 Body height 174 cm Eber Hess MD Work Phone: [facility] [employer] 06-17-2025 10:27-0400 Body mass index (BMI) [Ratio] 27.3 kg/m2 Eber Hess MD Work Phone: [facility] [employer] 06-17-2025 10:27-0400 Body weight 82.64 kg Eber Hess MD Work Phone: [facility] [employer] 06-17-2025 10:27-0400 Diastolic blood pressure 58 mm[Hg] Eber Hess MD Work Phone: [facility] [employer] 06-17-2025 10:27-0400 Heart rate 70 /min Eber Hess MD Work Phone: [facility] 06-17-2025 10:27-0400 Systolic blood pressure 110 mm[Hg] Eber Hess MD Work Phone: [facility] [employer] 05-03-2025 10:13-0400 Body height 174 cm Alejandro Jonnyynkary APR N - [employer] Work Phone: [facility] [employer] 05-03-2025 10:13-0400 Body mass index (BMI) [Ratio] 28.09 kg/m2 Alejandro Queen SUBSTANCE ABUSE SERVICES DIRECTOR - [employer] Work Phone: [facility] [employer] 05-03-2025 10:13-0400 Body weight 85.05 kg Alejandro Jonnyynick APR N - [employer] Work Phone: [facility] 05-03-2025 10:13-0400 Diastolic blood pressure 62 mm[Hg] Alejandro Jonnyynick SUBSTANCE ABUSE SERVICES DIRECTOR - [employer] Work Phone: [facility] [employer] 05-03-2025 10:13-0400 Heart rate 66 /min Alejandro Jonnyynick APR N - [employer] Work Phone: 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 - [employer] Work Phone: [employer] 04-17-2025 08:40-0400 Diastolic blood pressure 50 mm[Hg] Rowena Aguilar DO Work Phone: [employer] 04-17-2025 08:40-0400 Heart rate 62 /min Rowena Eliasffey DO Work Phone: [employer] 04-17-2025 08:40-0400 Respiratory rate 17 /min Rowena Aguilar DO Work Phone: [employer] 04-17-2025 08:40-0400 SaO2% (BldA) [Mass fraction] 96 % Rowena Lintony DO Work Phone: [employer] 04-17-2025 08:40-0400 Systolic blood pressure 104 mm[Hg] Rowena Lintony DO Work Phone: [employer] [facility] 04-17-2025 05:00-0400 Body mass index (BMI) [Ratio] 31.14 kg/m2 Rowena Lintony DO Work Phone: [employer] 04-17-2025 05:00-0400 Body weight 92.9 kg Rowena Aguilar DO Work Phone: [employer] 04-17-2025 01:47-0400 Body temperature 97.2 [degF] Rowena Lintony DO Work Phone: [employer] [facility] 04-16-2025 16:41-0400 Body height 172.7 cm Rowena Lintony DO Work Phone: [employer] 04-13-2025 04:37-0400 SaO2% (BldA) [Mass fraction] 95.1 % Rowena Lintony DO Work Phone: [employer] [facility] 04-08-2025 21:01-0400 SaO2% (BldA) [Mass fraction] 97 % Rowena Lintony DO Work Phone: [employer] 04-08-2025 17:02-0400 SaO2% (BldA) [Mass fraction] 96.1 % Rowena Aguilar DO Work Phone: [facility] Encounters Encounter Date Encounter Type Care Provider Facility Start: 07-19-2025 End: 07-19-2025 Emergency department patient visit PCP NONE [facility] Comment on above: Symptomatic anemia ( Primary Dx) Start: 07-19-2025 ambulatory Ravi MENSAH Facili ty:[facility] Start: 07-07-2025 ambulatory Ravi Murray ty:[facility] Start: 07-06-2025 End: 07-07-2025 Telephone encounter Eber Hess MD Work Phone: [facility] [place] Start: 07-05-2025 ambulatory Ravi MENSAH Facili ty:[facility] Start: 06-28-2025 ambulatory Ravi MENSAH Facili ty:[facility] Start: 06-24-2025 End: 06-24-2025 Documentation procedure Yamilka Holloway SUBSTANCE ABUSE SERVICES DIRECTOR - [employer] Work Phone: [facility] [place] Start: 06-24-2025 End: 06-25-2025 Telephone encounter Eber Hess MD Work Phone: [facility] [place] Comment on above: Release of Informati on (BMP, vitals, and medication notes ) Start: 06-24-2025 ambulatory Ravi MENSAH Facili ty:[facility] Start: 06-21-2025 End: 06-22-2025 Emergency department patient visit Sagar Gilliam DO Work Phone: [facility] Comment on above: Anemia due to chroni c kidney disease, unspecified CKD stage (Primary Dx) Start: 06-21-2025 [facility] Facility :[facility] Start: 06-17-2025 End: 06-17-2025 ambulatory [facility] Start: 06-17-2025 End: 06-17-2025 ambulatory [facility] Start: 06-17-2025 End: 06-17-2025 Office outpatient visit 40 minutes Eber Hess MD Work Phone: [facility] [place] Comment on above: Chronic systolic hea rt failure (HCC) (Primary Dx) Start: 05-06-2025 End: 05-12-2025 Home visit new pt unstabl/signif new prob 75 min Yamilkapradeep Hololway SUBSTANCE ABUSE SERVICES DIRECTOR - [employer] Work Phone: [facility] [place] Comment on above: Palliative care enco unter (Primary Dx); Pleural effusion; Acute on chronic heart failure, unspecified heart failure type (HCC); Debility Start: 05-03-2025 End: 05-03-2025 ambulatory ALEJANDRO QUEEN [facility] Start: 05-03-2025 End: 05-03-2025 Office outpatient visit 25 minutes Alejandro Queen SUBSTANCE ABUSE SERVICES DIRECTOR - [employer] Work Phone: [facility] - [place] Comment on above: Chronic systolic hea rt failure (HCC) (Primary Dx); Coronary artery disease involving mechoopda coronary artery of mechoopda heart without angina pectoris; Pleural effusion; Acute kidney injury superimposed on chronic kidney disease (HCC) (HCC); 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 chronic kidney disease (HCC); PAC (premature atrial contraction); Abnormal CAT scan Start: 04-19-2025 End: 04-19-2025 Orders Only Katie Engle RN [facility] [place] Comment on above: Acute congestive hea rt failure, unspecified heart failure type (HCC) (Primary Dx) Start: 04-05-2025 End: 04-17-2025 Evaluation and management of inpatient Rowena Aguilar Work Phone: [facility] Cardiac Progressive Care Unit PCU 2E Start: 11-07-2020 End: 11-07-2020 Discharged Recurring [facility]-Immunizations Procedures Date Procedure Procedure Detail Performing Clinician Start: 07-19-2025 Blood typing serologic abo Josefina Rose MD Work Phone: Start: 07-19-2025 End: 07-19-2025 TRANSFUSE RED BLOOD CELLS Josefina Rose MD Work Phone: Start: 07-19-2025 Antibody screen ALEJANDRO QUEEN Comment on above: Performed By: #### L [id number] ####Commissioner Conservation Of Resources: UNA NAVARRO ([id number])[facility] BLOOD [facility] ([facility])[address] Start: 07-19-2025 Blood count complete auto&auto [...] on above: Performed By: #### L [id number] ####Commissioner Conservation Of Resources: UNA NAVARRO ([id number])[facility] BLOOD [facility] ([facility])[address] Start: 06-21-2025 Basic metabolic pane l [...] Phone: Start: 04-15-2025 BEDSIDE SPIROMETRY Lizeth Farmer SUBSTANCE ABUSE SERVICES DIRECTOR - [employer] Work Phone: Start: 04-15-2025 Blood occult peroxid ase actv qual feces 1-3 spec Albaro Hernández MD Work Phone: Start: 04-15-2025 Radiologic exam ches t single view Yesi Farmer SUBSTANCE ABUSE SERVICES DIRECTOR - [employer] Work Phone: Start: 04-15-2025 Comprehensive metabo lic panel Precious Lewis MD Work Phone: Start: 04-15-2025 Manual Differential panel - Blood Precious Lewis MD Work Phone: Start: 04-14-2025 OXYGEN THERAPY Precious dawn MD Work Phone: Start: 04-14-2025 Thoracentesis needle /cath pleura w/imaging Yesi Farmer SUBSTANCE ABUSE SERVICES DIRECTOR - [employer] Work Phone: Start: 04-14-2025 Comprehensive metabo lic panel Precious Lewis MD Work Phone: Start: 04-14-2025 Manual Differential panel - Blood Precious Lewis MD Work Phone: Start: 04-13-2025 OXYGEN THERAPY Precious dawn MD Work Phone: Start: 04-13-2025 Radiologic exam ches t single view Marian Casarez SUBSTANCE ABUSE SERVICES DIRECTOR - [employer] Work Phone: Start: 04-13-2025 Ecg routine ecg w/le ast 12 lds trcg only w/o i&r Marian Hawkinsmark SUBSTANCE ABUSE SERVICES DIRECTOR - [facility] Work Phone: Start: 04-13-2025 Blood gases any comb ination ph pco2 po2 co2 hco3 Yesi Farmer SUBSTANCE ABUSE SERVICES DIRECTOR [facility] Work Phone: Start: 04-13-2025 Comprehensive metabo [...] exam ches t single view Alejandro Queen SUBSTANCE ABUSE SERVICES DIRECTOR [facility] Work Phone: Start: 04-11-2025 OXYGEN THERAPY [...] on above: Performed By: #### L [id number] ####Commissioner Conservation [employer] Resources: UNA NAVARRO ([id number])[facility] BLOOD [facility] ([facility])[address] Start: 04-05-2025 ABO and Rh group [...] Activity Detail Author Start: 04-05-2030 Lipid panel [employer] [facility] Start: 06-21-2026 Creatinine measurement Creatinine Level [employer] [facility] Start: 06-21-2026 Potassium measurement Potassium Level [employer] Start: 06-17-2026 Creatinine measurement Creatinine Level [employer] [facility] Start: 06-17-2026 Potassium measurement Potassium Level [employer] [facility] Start: 04-17-2026 Creatinine measurement [employer] [facility] Start: 04-17-[address] [facility] Start: 04-06-2026 Echocardiography Echocardiogram [employer] [facility] Start: 04-06-2026 [employer] [facility] Start: 11-03-2025 Depression Monitoring Depression Monitoring [employer] [facility] Start: 09-13-2025 End: 09-13-2025 Patient encounter procedure 09/13/2025 10:40 AM EST Office Visit [facility] - [place] [address] [place] [phone] Eber Hess MD [address] [facility] [address] [address] [place] [address] [facility] - [place] Start: 06-17-2025 End: 06-17-2025 Patient encounter procedure 06/17/2025 10:20 AM EDT Office Visit [facility] [place] [address] [place] [phone] Eber Hess MD [address] [facility] [address] [place] [address] [facility] [place] Start: 05-18-2025 End: 05-18-2025 ambulatory [facility] Start: 05-18-2025 End: 05-18-2025 Patient encounter procedure 05/18/2025 9:15 AM EDT Office Visit [facility] [address] [place] [address] Nelson Garcia MD [address] [facility] [address] [place] [address] [facility] Start: 05-10-2025 COVID-19 Vaccine ( season) COVID-19 Vaccine ( season) [facility] Start: 05-10-2025 Influenza vaccination Influenza Vaccine (#1) [facility] Start: 05-10-2025 [facility] Start: 04-22-2025 End: 04-22-2025 ambulatory [facility] [place] Start: 04-22-2025 End: 04-22-2025 Patient encounter procedure 04/22/2025 10:00 AM EDT Office Visit [facility] [place] [address] [facility] [address] [place] [phone] Marian Casarez APRN - [place] [address] [address] [facility] [place] Start: 05-10-2024 COVID-19 Vaccine ( season) COVID-19 Vaccine ( season) [facility] Start: 05-10-2024 [facility] Start: 2011 RSV Immunization for Adults (1 - 1-dose 75+ series) RSV Immunization for Adults (1 - 1-dose 75+ series) [facility] Start: 2011 [facility] Start: 1986 Zoster Vaccines (1 of 2) Zoster Vaccines (1 of 2) [facility] Start: 1986 [facility] Start: 1955 DTaP/Tdap/Td Vaccines (1 - Tdap) DTaP/Tdap/Td Vaccines (1 - Tdap) [facility] Start: 1955 Pneumococcal Vaccine: 50+ Years (1 of 2 - PCV) Pneumococcal Vaccine: 50+ Years (1 of 2 - PCV) [facility] Start: 1955 [facility] Start: 1948 Depression Monitoring Depression Monitoring [facility] Start: 1948 [facility] Start: 1936 Medicare Annual Wellness (AWV) Medicare Annual Wellness (AWV) [facility] Start: 1935 [facility] Bedside spirometry [facility] Work Phone: End: 04-05-2025 Hemoglobin [Mass/volume] in Blood [facility] Work Phone: End: 04-05-2025 Hemoglobin.gastrointestina l.lower [Presence] in Stool by Immunoassay --1st specimen [facility] Work Phone: Immunizations Immunization Date Immunization Notes Care Provider Fa cility 12-05-2020 Covid (Moderna) [facility] Work Phone: 11-07-2020 Covid (Modern) [facility] Work Phone: 06-30-2020 influenza virus vaccine, unspecified formulation Katie Engle RN [facility] Payers Date Payer Category Payer Self-pay [id number] 2017 [employer] Manuel Vargas Managed Care - [facility] [id number] 2017 Medicare supplementa l policy (as second payer) [id number] 2017 Unknown [id number] 2001 Medicare [id number] 2001 Medicare [id number] Unknown [id number] Unknown [id number] Unknown [id number] Unknown [id number] Unknown [id number] Unknown [id number] Social History Date Type Detail Facility Tobacco smoking stat us NHIS Unknown if ever smoked [facility] Work Phone: Start: 1935 Sex Assigned At Male W [facility] Work Phone: Start: 04-08-2025 End: 05-03-2025 Tobacco smoking status NHIS Never smoked tobacco [facility] Start: 04-08-2025 End: 05-03-2025 History of Social function [facility] Start: 04-08-2025 End: 05-03-2025 [facility] [employer] [facility] Has the [employer], [employer], or water [employer] threatened to shut off services in your home in past 12Mo No [facility] How often to you hav e a drink containing alcohol? Never [facility] How many standard drinks containing alcohol do you have on a typical day? [facility] (I/We) worried landon er (my/our) food would run out before (I/we) got money to buy more. Never true [facility] Start: 1935 Sex assigned at [facility] Start: 04-05-2025 Sex Male (finding) [facility] Start: 05-03-2025 End: 06-15-2025 Tobacco use and exposure Smokeless tobacco non-user [facility] Start: 06-15-2025 [facility] History of tobacco use Current smoker [facility] History of tobacco use Cigarette Smoker [facility] Start: 06-17-2025 Alcoholic beverage intake Ex-drinker (finding) [facility] Goals Date Patient Goal Desired Activity /State Functional Status Date Assessment Result Facility 07-19-2025 Total score [AUDIT-C] 0 07/19/20 10:59 AM Luci Mendez RN [facility] 05-03-2025 Patient Health Quest ionnaire 2 item (PHQ-2) [Reported] [facility] Clinical Notes 04-05-2025 to 07-19-2025 May Jarquin [...] noted. VS stable. Resp even, non labored. [facility] 07-19-2025 Emergency department Note [facility] arrived to transport pt to home facility . Pt transferred to stretcher without difficulty. Pt A&O, calm, and cooperative, no signs of distress noted. VS stable. Resp even, non labored. Report given to [facility]. Marleni Post H&H not needed per Dr. Rose. Ok to dc 30 mins after unit is complete. Meal order placed This RN sat bedside for the first 15 mins of blood transfusion. Pt denied c/o any transfusion reaction symptoms. Pt's vitals rechecked before leaving the room. [facility] ED EMERGENCY DEPARTMENT ENCOUNTER Pt Name: Mary [...] 7.1 on 06/15/2025 patient is in a mcfp. Patient is wheelchair-bound. HPI Historian is the [...] AND HEMATOCRIT, BLOOD PREPARE RBC PRODUCT CODE [id number] Unit Number [id number] Unit ABO A Unit RH NEG Crossmatch interpretation COMP Dispense Status Transfused Blood Expiration Date [id number] Product Blood Type 0600 Unit Volume 300 [...] determinants of health affecting care: Lives in mcfp Shared decision making: Patient agrees to treatment plan ED Medications managed: Medications sodium chloride 0.9 % infusion (has no administration in time range) Prescription drugs prescribed: PROCEDURES: Unless otherwise noted below, none Procedures IMPRESSION 1. Symptomatic anemia DISPOSITION/PLAN DISPOSITION Discharge 07/19/2025 01:51:41 PM PATIENT REFERRED TO: Ravi Kirk DO [address] [place] [address] [place] [address] In 1 week DISCHARGE MEDICATIONS: New Prescriptions No medications on file @[facility]([id number]:LAST:1)@ (Comment: Please notethis report has been produced [...] MD 07/19/25 1352 documented in this encounter [facility] 07-19-2025 Emergency department Note [facility] 07-19-2025 Emergency department Note Post H&H not needed per Dr. Rose. Ok to dc 30 mins after unit is complete. [facility] 07-19-2025 Emergency department Note Meal order placed [facility] 07-19-2025 Emergency department Note This RN sat bedside for the first 15 mins of blood transfusion. Pt denied c/o any transfusion reaction symptoms. Pt's vitals rechecked before leaving the room. [facility] 07-19-2025 Hospital Discharg e instructions Josefina Rose MD - 07/19/2025 1:52 PM EST Continue all current medications. Would recommend that you get a repeat CBC within 5 to 7 days. This can be done by your primary care physician. The following attachments cannot be sent through Care Everywhere.Normocytic Normochromic Anemia Discharge Instructions ([place])documented in this encounter [facility] 07-19-2025 Physician Emergency department Note [facility] ED EMERGENCY DEPARTMENT ENCOUNTER Pt Name: Mary [...] 7.1 on 06/15/2025 patient is in a mcfp. Patient is wheelchair-bound. HPI Historian is the [...] AND HEMATOCRIT, BLOOD PREPARE RBC PRODUCT CODE [id number] Unit Number [id number] Unit ABO A Unit RH NEG Crossmatch interpretation COMP Dispense Status Transfused Blood Expiration Date [id number] Product Blood Type 0600 Unit Volume 300 [...] determinants of health affecting care: Lives in mcfp Shared decision making: Patient agrees to treatment plan ED Medications managed: Medications sodium chloride 0.9 % infusion (has no administration in time range) Prescription drugs prescribed: PROCEDURES: Unless otherwise noted below, none Procedures IMPRESSION 1. Symptomatic anemia DISPOSITION/PLAN DISPOSITION Discharge 07/19/2025 01:51:41 PM PATIENT REFERRED TO: Ravi Kirk DO [address] [place] [id number] In 1 week DISCHARGE MEDICATIONS: New Prescriptions No medications on file @[facility]([id number]:LAST:1)@ (Comment: Please notethis report has been produced [...] Year: No Josefina Rose MD 07/19/25 1352 [facility] 07-07-2025 Telephone encounter Note Darby called back to verify the diuretic instructions; she had the Lasix written down, so I verified that it was actually torsemide. She verbalized understanding and was thankful for the call. [facility] 07-07-2025 Miscellaneous Notes Darby called [...] called and spoke to nurse Khushboo from [facility]-she took verbal order for torsemide and notes they are continuing to follow his anemia with hemograms; is occult stool was negative. She was thankful for the call back. Images from the original note were not included. Cr 1.9, K+ 3.7, hemoglobin 7.1 on 07/05/25. BP's mostly 100-110's/50/60's; one SBP outlier of 94, one outlier of 121. HR's 60-70's. Note from nursing: [facility] faxed 07/05/25 BMP, and CBC, and vitals. Records to be scanned to chart. Sharita from [facility] called o report weight gain. 07/03: #189, 07/04: #191, 07/06: #191.4, and today #191.6. He had labs recently and HG is 7.1. She is faxing his recent vitals and labs. We scheduled follow up with 09/13/25. Otherwise he is feeling fine. documented in this encounter [facility] 07-07-2025 Telephone encounter Note Per Dr Hess "Ok to take etc 20 mg torsemide if weight gain, leg swelling or sob. Anemia - recommend followup with PCP and GI" I called and spoke to nurse Khushboo from [facility]-she took verbal order for torsemide and notes they are continuing to follow his anemia with hemograms; is occult stool was negative. She was thankful for the call back. [facility] 07-06-2025 Telephone encounter Note Images from the original note were not included. Cr 1.9, K+ 3.7, hemoglobin 7.1 on 07/05/25. BP's mostly 100-110's/50/60's; one SBP outlier of 94, one outlier of 121. HR's 60-70's. Note from nursing: [facility] 07-06-2025 Telephone encounter Note [facility] faxed 07/05/25 BMP, and CBC, and vitals. Records to be scanned to chart. [facility] 07-06-2025 Telephone encounter Note Sharita from [facility] called o report weight gain. 07/03: #189, 07/04: #191, 07/06: #191.4, and today #191.6. He had labs recently and HG is 7.1. She is faxing his recent vitals and labs. We scheduled follow up with 09/13/25. Otherwise he is feeling fine. [facility] 06-24-2025 History of Presen t illness Narrative Attempted to meet with pt. He no longer resides here. Facility uncertain where he has moved to. Message left on primary contacts number Bereket to return call to the palliative group at [phone] documented in this encounter [facility] 06-24-2025 Telephone encounter Note Per Dr Hess: "Would stop aldactone all together due to Cr 1.8 and low normal BP. Also stop hydralazine and see how bp is " I called and spoke to the nurse, Kylah at [facility] relaying note from Dr Hess. [...] likely give him an additional torsemide today. [facility] 06-24-[address] Hess: "Would stop aldactone all together due to Cr 1.8 and low normal BP. Also stop hydralazine and see how bp is " I called and spoke to the nurseKylah at [facility] relaying note from Dr Hess. [...] was 2.05 on 06/17/25. FYI: Went to [facility] ER on 06/21/25 for blood transfusion as HGB at facility was 6.9 when they checked it 06/21/25. Labs from [facility] Today: 06/24/25 BMP, blood pressure, pulse summary, and medication notes faxed from [facility]. Records scanned to Media. documented in this encounter [facility] 06-24-2025 Telephone encounter Note Images [...] was 2.05 on 06/17/25. FYI: Went to [facility] ER on 06/21/25 for blood transfusion as HGB at facility was 6.9 when they checked it 06/21/25. Labs from [facility] Today: [facility] 06-24-2025 Telephone encounter Note 06/24/25 BMP, blood pressure, pulse summary, and medication notes faxed from [facility]. Records scanned to Media. [facility] 06-21-2025 Emergency department Note This RN at bedside for first 15 minutes of blood transfusion. Pt tolerating transfusion. VS updated in system. [facility] 06-21-2025 Emergency department Note This RN at bedside for first 15 minutes of blood transfusion. Pt tolerating transfusion. VS updated in system. Emergency Department Encounter [facility] ED Patient: Mary Charles : 1935 [...] the emergency department lab work today from group home facility showed hemoglobin of 6.8. Patient [...] unit of blood and discharged back to group home facility. Diagnostics interpreted by me: I [...] DO 06/21/252211 Patient arrives via EMS from [facility] following bloodwork that showed low hemoglobin. No overt signs of bleeding on arrival. Patient A&O4. Patient does endorse previous blood transfusions. documented in this encounter [facility] 06-21-2025 Emergency department Triage note Patient arrives via EMS from [facility] following bloodwork that showed low hemoglobin. No overt signs of bleeding on arrival. Patient A&O4. Patient does endorse previous blood transfusions. [facility] 06-21-2025 Physician Emergency department Note Emergency Department Encounter [facility] ED Patient: Mary Charles : 1935 [...] the emergency department lab work today from [facility] showed hemoglobin of 6.8. Patient is otherwise [...] unit of blood and discharged back to group home facility. Diagnostics interpreted by me: I [...] [employer] [facility] Gilliam DO 06/21/252211 [facility] Work Phone: 06-17-2025 History of Presen t illness Narrative [facility] Cardiology [facility] C[facility] - [address] [facility] [address] Dept: [phone] Dept Visit type: Established : 1935 Chief Complaint: Chief Complaint Patient presents with Follow-up 6 Week History of Present Illness: Mary Charles is a 89 y.o. male with HFrEF, Coronary artery disease who is here for followup. Prior events : He presented to [facility] 03/2025 with progressive shortness of breath, [...] tablet, Rfl: 1 documented in this encounter [facility] 05-06-2025 History of Presen t illness Narrative Images from the original note were not included. [facility] Palliative Care Site of Care: [facility] Chief Complaint: Mary Charles is a [...] hospice conversation today Debility Pt now at [facility] Working with PT/OT Palliative encounter Will continue [...] Falls: No Current Interventions: PT, OT, and long-term Current Assistive Devices: walker and wheelchair ROS: See palliative care ROS/ESAS below; All other systems were reviewed and are negative. 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 [facility] - [address] [facility] [address] Dept: [phone] Dept Visit type: Established : 1935 Reason [...] of EF 2. Coronary artery disease involving mechoopda coronary artery of mechoopda heart without angina pectoris Assessment & Plan: [...] weeks (around 06/14/2025). Wants to establish in [place]. Subjective No prior history as he has not been to a doctor for many years He presented to [facility] 03/2025 with progressive shortness of breath, [...] 187 lbs. He remains on 2L O2. Mayr Charles Review of Systems Constitutional: Negative for [...] history on file. documented in this encounter [facility] 05-03-2025 Evaluation + Plan note Associated Problem(s): Abnormal CAT scan CT abdomen with mural thickening involving the cecum and terminal ileum concern for neoplasm versus inflammation. Seen by GI with plan for EGD and colonoscopy once stable. -GI follow-up [facility] 05-03-2025 Miscellaneous Notes Associated Problem(s): [...] today Associated Problem(s): Coronary artery disease involving mechoopda coronary artery of mechoopda heart without angina pectoris Suspected CAD causing [...] re-evaluation of EF documented in this encounter [facility] 05-03-2025 Evaluation + Plan note Associated Problem(s): PAC (premature atrial contraction) Noted to have irregular heart rhythm during hospitalization and multiple EKGs show sinus rhythm with frequent PACs. -Continue Toprol 25 mg p.o. daily [facility] 05-03-2025 Evaluation + Plan note [...] discharge. Hgb 8.2 per labs 04/26/2025 from [facility]. -No aspirin due to anemia - continue to monitor [facility] 05-03-2025 Evaluation + Plan note Associated Problem(s): Acute kidney injury superimposed on chronic kidney disease (HCC) (HCC) Creatinine 1.46 on admission. Peak creatinine 1.78. Most recent creatinine 1.8 per labs 04/26/2025 - Continue to monitor - may have to accept a higher creatinine to keep him out of HF [facility] 05-03-2025 Evaluation + Plan note Associated Problem(s): Pleural effusion Bedside thoracentesis 04/09/2025 with 1 L removed from the left and 600 mL removed from the right. Repeat left thoracentesis 04/14/2025 with 600 mL removed. 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 NO angina. - no ASA 2/2 anemia - continue Toprol 25 mg po daily - continue atorvastatin 20 mg po daily - not a candidate or invasive workup due to anemia, advanced age and frailty [facility] 05-03-2025 Evaluation + Plan note [...] in 3 months for re-evaluation of EF [facility] 04-19-2025 History of Presen t illness Narrative Pt was followed by the Palliative Care Team during hospitalization at [facility]. Provider is recommending continued Palliative follow up in the community. Referral made referral to [facility] Palliative Care SNF team. documented in this encounter [facility] 04-17-2025 Nurse Note Report given to Flor MYERS at [facility]. All belongings sent with patient, including eyewear. HL removed, site WNL. RN contacted ACCOUNTS PAYABLE LEAD Marleny concerning attempt to wean patient to [...] bed very aggressively. 2 RN , 2 clinical nursing instructor were at bedside trying to calm him [...] within normal limits. documented in this encounter [facility] 04-17-2025 Miscellaneous Notes [facility] Choice Patient Name: MARY CHARLES Date of : 1935 Share Number: 0 Method of Sharing: electronic Date of Sharin2025-04-08 13:13:49.000 Responding Recipient: [email or web address] Ranked Providers Sent Referral Rank: 2 Name: Monika Montoya [employer] Phone: [phone] Address: [address] [place] [address] Rank: 3 [facility] [employer]. Phone: [phone] Address: [address] [place] [address] Rank: 1 Name: Jan FUENTES Member Phone: [phone] Address: [address] [place] [address] All Providers Sent Referral Name: Monika LOZOYA Phone: [phone] Address: [address] [place] [address] Name: Stefany Tidwell, Aishwarya. Phone: [phone] Address: [address] [place] [address] Name: Jan FUENTES Member Phone: [phone] Address: [address] [place] [address] Care Management Progress Note Short Medical why still here: Pending placement. Planned Discharge Disposition: Alf Facility ([facility] SNF) Barriers/Today we still Wait: Clinical stability [...] Requested cot transport for 1230 via [facility]. [facility] [email or web address] accepted for 1230. Notified bedside RN of transport time and number to call report. Notified facility of transport time and [facility] Spoke with daughter Anahy Charles at [phone] regarding transportation plan. Confirmed pickup time is 1230. Discussed patient may have a co-pay for ambulance depending on their individual insurance coverage. Advised daughter Anahy to call number on back of insurance card with questions or concerns. Tasked weekend TTC to follow for possible dc over the weekend. hse manager to follow and assist as needed. [...] at that facility if he chooses. -Tasked SNACK BAR ATTENDANT to complete and upload into [employer] 7000. Barriers/Today we still Wait: Clinical stability, [...] will still need placement at a facility. -hse manager to follow and assist as needed. [...] family later on Saturday. Planned Discharge Disposition: Alf Facility vs hospice Barriers/Today we still Wait: Receiving IV medication, clinical stability, Post-discharge arrangement completion (SNF vs hospice) hse manager to follow and assist as needed. Length of Stay (Days): 9 GMLOS: 3.9 Family Communication Number Called: [phone] Name of Designated Family Quality Improvement Consultant: Anahy Charles Relationship to patient: Daughter Outcome: I spoke with the individual listed above Family Quality Improvement Consultant Updated on the Following: --provided medical update. [...] on Saturday. Signed, Bela Agustin APRN, CNP, [facility] Palliative Care/Hospice PGR [phone] Care Management Progress Note Short Medical why still here: did send bipap settings to [facility] and requested for them to obtain bipap unit for patient to utilize at their facility. Currently requiring oxygen at 1 liter. Anticipate probable dc tomorrow. Will need 7000 and transport arranged. Planned Discharge Disposition: Alf Facility Barriers/Today we still Wait: Administering IV medications, Clinical stability, Facility pre-cert Length of Stay (Days): 8 GMLOS: 3.9 . Referral placed to SNF- [facility] via [facility] per TCC request. Await review and response regarding ability to accept. TCC notified. Care Management Progress Note Short Medical why still here: reviewed chart. Dgt has selected SNF choices virtually - 1. [facility] 2. [facility] 3. [facility]. Tasked SNACK BAR ATTENDANT to create these referrals - will follow. Planned Discharge Disposition: Alf Facility Barriers/Today we still Wait: Administering IV medications, Clinical stability, Facility pre-cert Length of Stay (Days): 7 GMLOS: 3.9 Called and spoke with deya Higginbotham of patient, and provided DC planning updates. [facility] willing to accept. Updates sent to facility. ICU Transfer Checklist Transfer Med Reconciliation (resume home meds if able, convert to PO if able) Complete Antibiotics (name, indication, duration, convert to PO if able) None Steroid (indication, duration, convert to PO if able) None Anticipated [place] Medications (ICU initiated) or Dose Changes and Indication No Permanently Discontinued Home Medications and Reason for medication contraindication No García Catheter (please remove if able. Note: place DC order) No Central Line (please remove if able. Note: place DC order) No Transfer Discussed with: Dr. Regan with [facility] If additional questions for ICU team within 24 hours of ICU transfer, page [phone] for clarifications. Will assume care as patient is being transferred out of ICU. D/w Dr Lewis via secure chat Images from the original note were not included. [facility] Palliative Care Transitions of Care Note [...] care of himself. -Consider medication for mood? -Wool Hat Flanger support requested. -Monitor. Hx CKD III -CrCl [...] NAME: TBD, referrals have been sent to [facility], [facility] and [facility]. Follow up with palliative team on [...] care and cardiology following. Planned Discharge Disposition: Alf Facility Barriers/Today we still Wait: Clinical stability, Leather Production Artisan recommendations (comment), Diagnostic workup, Administering IV medications, [...] need if SNF is recommended by PT. hse manager to follow and assist as needed. Length of Stay (Days): 1 GMLOS: No GMLOS Documented documented in this encounter [facility] 04-17-2025 Note [facility] 04-17-2025 Hospital course Narrative Discharge [...] Your Medications These medications were sent to [facility] [address] [facility] [address] Hours: Saturday to Saturday 10 am to 6 pm atorvastatin 20 MG tablet hydrALAZINE 10 MG tablet metoprolol succinate XL 25 MG 24 hr tablet senna-docusate sodium 8.6-50 MG tablet spironolactone 25 MG tablet Torsemide 40 MG tablet DIET: Adult diet Regular; No Added Salt (3-4 gm) ACTIVITY: No restriction. COMPLEXITY OF FOLLOW UP: [x] Moderate Complexity: follow up within 7-14 calendar days (86655) [] Severe Complexity: follow up within 7 calendar days (36535) FOLLOW UP TESTING, PENDING RESULTS OR REFERRALS AT TRANSITIONAL CARE VISIT: [x] Yes [] No PENDING STUDIES: DISPOSITION: Skilled Facility FACILITY/HOME CARE AGENCY NAME: Follow up with Nelson Garcia MD [address] [facility] [address] Go on 05/18/2025 Pulmonary hospital follow-up at 9:15 AM Marian Casarez APRN - [employer] [address] [place] [address] Follow up on 04/22/2025 Cardiology follow-up at 10:00 AM. [facility] Gastroenterology - [address] [address] Follow up in 1 month(s) [...] 04/17/2025, 10:12 AM documented in this encounter [facility] 04-17-2025 History of Presen t illness Narrative [facility] [place] [facility] Cardiology /Electrophysiology Progress Note HPI / Interval [...] follow-up 04/22/2025 at 10 AM at the [facility] office with myself, Marian Casarez [...] Daily torsemide, 40 mg, Oral, Daily [2] [facility] Respiratory Care Department Progress Note [...] care of himself. -Consider medication for mood? -Wool Hat Flanger support requested. -Monitor. Hx CKD III -CrCl [...] detailed in the note above. Bela Agustin, SUBSTANCE ABUSE SERVICES DIRECTOR - [employer] Palliative Care Assessments: Goals of care: Continue [...] other systems were reviewed and are negative. Chaffee Symptom Assessment Score Chaffee Score Pain Score (if non-verbal, add .FLACC [...] On: Kcal/kg Weight Used for Energy Requirements: [place] Weight for Energy Calculation (kg): 70 kg Total Energy Requirements (kcals/day): 3011-6829 (25-30) Weight Used for Protein Requirements: [place] Weight in Kg Used for Protein Requirements: [...] Body Weight: (none on file to review) [place] Body Weight (lbs) (Calculated): 154 lbs [place] Body Weight (Kg) (Calculated): 70 kg % [place] Body Weight (Calculated): 129.9 % BMI (kg/m2) [...] Continue current diet Kristin Duffy RD Contact: *[phone] or via Secure Chat Images from the original note were not included. OCCUPATIONAL THERAPY [facility] Treatment Note Name/MRN: Mary Charles ([id number]) Date of : 1935 Age: 89 y.o. Room/Bed: [facility]268/[facility]268 B Visit #: 4 out of 7 Discharge Recommendation: Alf Facility Equipment Needed: No Assessment Pt tolerated [...] Daily Activity Raw Score: 14 ADL Inpatient [facility] G-Code Modifier: CK Goals Patient Stated Goal: [...] ANAHY CHARLES Mobile Relation: Daughter Preferred language: Cape Verdean Dry Pan Feeder needed? No Albaro Hernández MD Division of Hospitalist Medicine Acute care [facility] [1] History reviewed. No pertinent past medical [...] from the original note were not included. [facility], Pulmonary Medicine [address] [place] [id number] Patient - Mary Charles, Age - 89 y.o. - 1935 Room Number - B2-268/B2-268 B Consulting - Albaro Hernández MD Primary Care Physician - No primary care provider on file[id number] Date of Admission - 04/05/2025 3:55 PM [...] heart failure, unspecified heart failure type (HCC) [facility] Cardiology /Electrophysiology Progress Note HPI / [...] Daily torsemide, 40 mg, Oral, Daily [2] [facility] Respiratory Care Department Progress Note [...] Respiratory in the care of this patient, [facility] [place] [facility] Cardiology /Electrophysiology Progress Note HPI / Interval [...] from the original note were not included. [facility], Pulmonary Medicine [address] [place] [address] Patient - Mary Charles, Age - 89 y.o. - 1935 Room Number - B2-268/B2-268 B Consulting - Albaro Hernández MD Primary Care Physician - No primary care provider on file. [id number] Date of Admission - 04/05/2025 3:55 PM [...] ANAHY CHARLES Mobile Relation: Daughter Preferred language: [place] Verdean Dry Pan Feeder needed? No Albaro Hernández MD Division of [...] ON 04/16/2025] polyethylene glycol (PEG) 3350 [4] [facility] Respiratory Care Department Progress Note [...] Respiratory in the care of this patient, [facility] [place] [facility] Cardiology /Electrophysiology Progress Note HPI / Interval [...] original note were not included. OCCUPATIONAL THERAPY [facility] Name/MRN: Mary Charles ([id number]) Date: 04/14/2025 Attempted to see pt for OT tx. Pt reported being very fatigued after getting cleaned up and working with PT this AM. Unable to encourage participation in OT tx at this time. Marleni Victor OT Images from the original note were not included. PHYSICAL THERAPY [facility] Treatment Note Name/MRN: Mary Charles ([id number]) Date of : 1935 Age: 89 y.o. Room/Bed: Banner/Banner B Visit #: 4 out of 5 Discharge Recommendation: Alf Facility Equipment Needed: No Assessment Patient supine [...] ANAHY CHARLES Mobile Relation: Daughter Preferred language: Cape Verdean Dry Pan Feeder needed? No Albaro Hernández MD Division of Hospitalist Medicine [facility] [1] History reviewed. No pertinent past medical [...] from the original note were not included. [facility], Pulmonary Medicine [address] [place] [address] Patient - Mary Charles, Age - 89 y.o. - 1935 Room Number - B2-268/B2-268 B Consulting - Albaro Hernández MD Primary Care Physician - No primary care provider on file. [id number] Date of Admission - 04/05/2025 3:55 PM [...] at home. I spoke with Breana from [facility]. Likely will need to have [...] On: Kcal/kg Weight Used for Energy Requirements: [place] Weight for Energy Calculation (kg): 70 kg Total Energy Requirements (kcals/day): 8330-8972 (25-30) Weight Used for Protein Requirements: [place] Weight in Kg Used for Protein Requirements: [...] Body Weight: (none on file to review) [place] Body Weight (lbs) (Calculated): 154 lbs [place] Body Weight (Kg) (Calculated): 70 kg % [place] Body Weight (Calculated): 136.1 % BMI (kg/m2) [...] Oral Nutrition Supplement Kristin Duffy RD Contact: *[phone] or via Secure Chat Images from the original note were not included. OCCUPATIONAL THERAPY [facility] Treatment Note Name/MRN: Mary Charles ([id number]) Date of : 1935 Age: 89 y.o. Room/Bed: B2-268/B2268 B Visit #: 3 out of 7 Discharge Recommendation: Alf Facility Equipment Needed: No Prior Level of [...] Gongora OT at 04/14/2025 9:03 AM EDT [facility] Cardiology /Electrophysiology Progress Note HPI / [...] ANAHY CHARLES Mobile Relation: Daughter Preferred language: [place] Verdean Dry Pan Feeder needed? No Albaro Hernández MD Division of [...] from the original note were not included. [facility], Pulmonary Medicine [address] [place] [id number] Patient - Mary Charles, Age - 89 [...] original note were not included. OCCUPATIONAL THERAPY [facility] Treatment Note Name/MRN: Mary Charles ([id number]) Date of : 1935 Age: 89 y.o. Room/Bed: Banner/Banner B Visit #: 2 out of 7 visits Discharge Recommendation: Alf Facility Equipment Needed: No Prior Level of Function Prior Level of ADL Function: Required Assist (for showering and pt wipes himself down with wash cloth IND) Prior Level of Mobility: Independent; Device: Rollator Prior Level of Transfers: Independent Assessment Pt agreeable to therapy at first attempt (2808-0505) but states that he first needs to [...] care of himself. -Consider medication for mood? -Wool Hat Flanger support requested. -Monitor. Hx CKD III -CrCl [...] hospital setting and will send referral to life consultantcamp coordinator for palliative SNF referral. -Questions answered, [...] other systems were reviewed and are negative. Chaffee Symptom Assessment Score Chaffee Score Pain Score (if non-verbal, add .FLACC [...] LOURDES Ordaz CNP Hospitalist Progress Note 04/12/2025 [phone]: Please secure chat me for patient care issues. [phone]: Please secure chat [facility] night Hospitalist for any issues. Subjective: Admit [...] diet Regular; No Added Salt (3-4 gm) @[id number]@ 24HR INTAKE/OUTPUT: Intake/Output Summary (Last 24 hours) [...] care input PT and OT assessments recommended group home facility -am labs, replace lytes prn -increase activity -DVT prophylaxis: [] Lovenox [] Heparin [x] SCDs [x] Encourage ambulation [] Already on Anticoagulation - GI prophylaxis : Anticipated Discharge - Date -April 14 or - Location -group home facility - Pending the following -clinical improvement, specialist clearance Total time spent (which include face to face and non face to face encounters) : 53 minutes Toxic drug monitoring/narrow therapeutic index drug monitoring : # Drug name : # Route administered : # Method of monitoring : Extended Emergency Contact Information Primary Emergency Contact: ANAHY CHARLES Mobile Relation: Daughter Preferred language: [place] Verdean Dry Pan Feeder needed? No Westley Martinez MD Division of Hospitalist Medicine [facility] PAGER: Ese chat [1] History reviewed. No [...] original note were not included. PHYSICAL THERAPY [facility] Treatment Note Name/MRN: Mary Charles ([id number]) Date of : 1935 Age: 89 y.o. Room/Bed: [facility]268/Banner B Visit #: 3 out of 5 visits Discharge Recommendation: Alf Facility Equipment Needed: No Assessment Pt making [...] Cabral PT at 04/12/2025 10:47 AM EDT [facility] [place] [facility] Cardiology /Electrophysiology Progress Note HPI / Interval History: Mary Charles has no prior cardiac history (has not seen a physician for many years) who presented to [facility] with worsening SOB, hypoxia and edema. [...] 22 (A) 55 - 100 % Final LOUREDS Benson CNP Date Of Service 04/12/2025 [1] [facility] Respiratory Care Department Progress Note [...] original note were not included. OCCUPATIONAL THERAPY [facility] Treatment Note Name/MRN: Mary Charles ([id number]) Date of : 1935 Age: 89 y.o. Room/Bed: Banner/Banner B Visit #: 1 out of 7 Discharge Recommendation: Alf Facility Equipment Needed: No Prior Level of [...] 04/11/2025 1:38 PM EDT Hospitalist Progress Note 04/11/20256998630-6896: Please secure chat me for patient care issues. [phone]: Please secure chat [facility] night Hospitalist for any issues. Subjective: Admit [...] diet Regular; No Added Salt (3-4 gm) @[id number]@ 24HR INTAKE/OUTPUT: Intake/Output Summary (Last 24 hours) [...] - Location -Home with home health versus group home facility - Pending the following -PT [...] ANAHY CHARLES Mobile Relation: Daughter Preferred language: [place] Verdean Dry Pan Feeder needed? No Westley Martinez MD Division of Hospitalist Medicine [facility] PAGER: [employer] chat [1] History reviewed. No pertinent past [...] ON 04/12/2025] torsemide, 40 mg, Oral, Daily [facility] [place] [facility] Cardiology /Electrophysiology Progress Note HPI / Interval History: Mary Charles has no prior cardiac history (has not seen a physician for many years) who presented to [facility] with worsening SOB, hypoxia and edema. [...] 100 % Final Alejandro Queen APRN - [employer] Date Of Service 04/11/2025 [1] [facility] Respiratory Care Department Progress Note [...] original note were not included. PHYSICAL THERAPY [facility] Treatment Note Name/MRN: Mary Charles ([id number]) Date of : 1935 Age: 89 y.o. Room/Bed: 222-04/222-04 A Visit #: 2 out of 5 Discharge Recommendation: Alf Facility Equipment Needed: No Assessment Pt making [...] original note were not included. OCCUPATIONAL THERAPY [facility] Initial Evaluation Name/MRN: Mary Charles ([id number]) Evaluation Date: 04/10/2025 Date of : 1935 Admission Date: 04/05/2025 3:55 PM Age: 89 y.o. Room/Bed: 222-04/222-04 A Discharge Recommendation: Alf Facility Equipment Needed: No Assessment IMPRESSION: Pt [...] Needs Assist Receives Help From: Family Active Elementary Tutor: No Prior Level of Function Prior Level [...] of Care supervision is transferred to a [facility] Therapy Services Occupational Therapist. Goals and/or [...] [2] History reviewed. No pertinent surgical history. [facility] Cardiology /Electrophysiology Progress Note HPI / Interval History: Mary Charles has no prior cardiac history (has not seen a physician for many years) who presented to [facility] with worsening SOB, hypoxia and edema. [...] remote tobacco abuse who was admitted to [facility] 04/05/25 with shortness of breath and [...] Normal [] Scar/Lesion/Mass Inspection of teeth/lips/gums: Dentition: [x][place] Teeth []Dentures Lips/Gums [x]Intact []Lesion Present Oropharynx exam: Mucosa [x][place] []Moist []Dry Neck: External Appearance: Overall Appearance:[x]Normal [...] ABGs: Recent Labs 04/08/25165304/08/252052 PHART 7.296* 7.332* [id number] 80.1* 75.1* PO2ART 92.0 104.0 RLE6TFN 38.2* 38.9* [id number] 96.1* 97.0 Lactic Acid: No lab exists [...] can use the urinal, no indication for PROGRAM DIRECTOR at this time (would be a poor [...] Code Status: Full Code Disposition: Transfer to [facility] with telemetry Critical care time spent reviewing labs/films, examining patient, collaborating with other physicians but excluding procedures for life threatening organ failure is 35 minutes. Precious Lewis MD Pulmonary & Critical Care Medicine [facility] Pager #[phone] [1] atorvastatin, 20 mg, Oral, Nightly carvedilol, 3.125 mg, Oral, BID WC furosemide, 40 mg, IntraVENous, BID hydrALAZINE, 25 mg, Oral, TID mupirocin, 1 Application, Nasal, BID pantoprazole, 40 mg, Oral, qAM AC polyethylene glycol (PEG) 3350, 17 g, Oral, Daily senna-docusate sodium, 2 tablet, Oral, BID [Held by provider] torsemide, 20 mg, Oral, Daily [2] [facility] Cardiology /Electrophysiology Progress Note HPI / Interval History: Mary Charles has no prior cardiac history (has not seen a physician for many years) who presented to [facility] with worsening SOB, hypoxia and edema. [...] Does appear tired. Family at bedside (brother, [id number], daughter). No significant complaints today. Assessment/Plan HF [...] original note were not included. PHYSICAL THERAPY [facility] Treatment Note Name/MRN: Mary Charles ([id number]) Date of : 1935 Age: 89 y.o. Room/Bed: 222-04/222-04 A Visit #: 1 out of 5 Discharge Recommendation: Alf Facility Equipment Needed: No Assessment Pt demos [...] x1) Lucrecia Cabral PT Spiritual Care Note [facility] Palliative Care Patient Name:Mary Charles Chief Complaint: [...] of grief. He spoke about moving from [place] to [place] as a young man. We did some life review. No follow up. Is there spiritual distress? YES Comment: Grief Interventions: spiritual support provided, emotional support provided, empathetic listening, and validated feelings. Care Plan: No care plan. Follow Up: No follow up. Debriefed: with polytechnic teacher team. Carmelita Chairez 04/09/25 Images from the [...] care of himself. -Consider medication for mood? -Wool Hat Flanger support requested. -Monitor. Hx CKD III -CrCl [...] other systems were reviewed and are negative. Chaffee Symptom Assessment Score Chaffee Score Pain Score (if non-verbal, add .FLACC [...] original note were not included. OCCUPATIONAL THERAPY [facility]'s Name/MRN: Mary Charles ([id number]) Date: 04/09/2025 OT order received, chart review [...] remote tobacco abuse who was admitted to [facility] 04/05/25 with shortness of breath and [...] Normal [] Scar/Lesion/Mass Inspection of teeth/lips/gums: Dentition: [x][place] Teeth []Dentures Lips/Gums [x]Intact []Lesion Present Oropharynx exam: Mucosa [x][place] []Moist []Dry Neck: External Appearance: Overall Appearance:[x]Normal [...] ABGs: Recent Labs 04/08/25165304/08/252052 PHART 7.296* 7.332* QTZ0KBU 80.1* 75.1* PO2ART 92.0 104.0 OUF5ZJH 38.2* 38.9* Q6PKUEFT 96.1* 97.0 Lactic Acid: No lab exists [...] urology evaluation, strict I/O's, no indication for PROGRAM DIRECTOR at this time (would be a poor [...] Lewis MD Pulmonary & Critical Care Medicine [facility] Pager #[phone] [1] atorvastatin, 20 mg, Oral, Nightly carvedilol, [...] critical care time excluding procedures D/w Yamilka, PROGRAM DIRECTOR, Rosangela RN and family at bedside. Images from the original note were not included. OCCUPATIONAL THERAPY [facility] Name/MRN: Mary Charles ([id number]) Date: 04/08/2025 Therapy eval and treat orders [...] up with [facility] Hospitalist Progress Note 04/08/[id number]: Please secure chat me for patient care issues. [phone]: Please secure chat [facility] Hospitalist for any issues. Subjective: Admit [...] dose of lorazepam.... Adult diet Clear liquid @[id number]@ 24HR INTAKE/OUTPUT: Intake/Output Summary (Last 24 hours) [...] Date -April 11 or - Location -possible group home facility - Pending the following -clinical [...] ANAHY CHARLES Mobile Relation: Daughter Preferred language: Cape Verdean Dry Pan Feeder needed? No Westley Martinez MD Division of Hospitalist Medicine [employer] [facility] [employer] PAGER: Epic chat [1] History reviewed. No pertinent past medical history. [2] [3] atorvastatin, 20 mg, Oral, Nightly carvedilol, 3.125 mg, Oral, BID WC [Held by provider] furosemide, 40 mg, IntraVENous, BID hydrALAZINE, 25 mg, Oral, TID iron sucrose, 200 mg, IntraVENous, q24h pantoprazole, 40 mg, Oral, qAM AC [facility] Cardiology /Electrophysiology Progress Note HPI / Interval History: Mary Charles has no prior cardiac history (has not seen a physician for many years) who presented to [facility] with worsening SOB, hypoxia and edema. [...] 3. Dysphagia - resolved Spiritual Care Note [facility] Palliative Care Patient Name:Mary Charles Chief Complaint: Chief Complaint Patient presents with Leg Swelling Shortness of Breath Pt arrived to triage for shortness of breath and swelling legs. Pt endorses increased work of breath, weakness, confusion and no appetite. 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 Introduced myself and pastoral care to [...] and when patient is able. Debriefed: with polytechnic teacher team. Carmelita Chairez 04/07/25 Images from the original note were not included. PHYSICAL THERAPY [facility] Initial Evaluation Name/MRN: Mary Charles ([id number]) Evaluation Date: 04/07/2025 Date of : 1935 Admission Date: 04/05/2025 3:55 PM Age: 89 y.o. Room/Bed: B2254/[facility]254 A Discharge Recommendation: Alf Facility Equipment Needed: No Assessment IMPRESSION: Pt [...] Needs Assist Receives Help From: Family Active Elementary Tutor: No Prior Level of Function Prior Level [...] Raw Score (No Stairs) : 11 [facility] Score: Static standing (1 or [...] of Care supervision is transferred to a [facility] Therapy Services Physical Therapist. Goals and/or treatment plan was established in collaboration with patient/family/other representatives. [1] History reviewed. No pertinent past medical history. [2] History reviewed. No pertinent surgical history. Cosigned by Lucrecia Cabral PT at 04/07/2025 4:00 PM EDT Hospitalist Progress Note 04/07/[id number]: Please secure chat me for patient care issues. [phone]: Please secure chat [facility] night Hospitalist for any issues. Subjective: Admit [...] diet Regular; No Added Salt (3-4 gm) @[id number]@ 24HR INTAKE/OUTPUT: Intake/Output Summary (Last 24 hours) [...] Date -April 11 or - Location -possible group home facility - Pending the following -clinical [...] ANAHY CHARLES Mobile Relation: Daughter Preferred language: [place] Verdean Dry Pan Feeder needed? No Westley Martinez MD Division of Hospitalist Medicine Acute care [facility] PAGER: Epic chat [1] History reviewed. No pertinent past medical history. [2] [3] atorvastatin, 20 mg, Oral, Nightly carvedilol, 3.125 mg, Oral, BID WC furosemide, 40 mg, IntraVENous, BID hydrALAZINE, 25 mg, Oral, TID iron sucrose, 200 mg, IntraVENous, q24h pantoprazole, 40 mg, Oral, qAM AC [facility] [place] [facility] Cardiology /Electrophysiology Progress Note HPI / Interval History: Mary Charles has no prior cardiac history (has not seen a physician for many years) who presented to [facility] with worsening SOB, hypoxia and edema. [...] assess Fluid Accumulation: Moderate to Severe Extremities Senior Research Executive Strength: Not Performed Nutrition Assessment: 89 y.o. [...] anemia and frailty. Conservative, medical management." nursing program director in room. Pt sleeping /snoring -name called numerous times pt did not wake -left undisturbed at this time. Estimated Daily Nutrient Needs: Energy Requirements Based On: Kcal/kg Weight Used for Energy Requirements: [place] Weight for Energy Calculation (kg): 70 kg Total Energy Requirements (kcals/day): 1258-7873 (25-30) Weight Used for Protein Requirements: [place] Weight in Kg Used for Protein Requirements: [...] lb) Usual Body Weight: (unable to obtain) [place] Body Weight (lbs) (Calculated): 154 lbs [place] Body Weight (Kg) (Calculated): 70 kg % [place] Body Weight (Calculated): 129.9 % BMI (kg/m2) [...] soon to determine Kristin Duffy RD Contact: *[phone] or via Secure Chat [1] atorvastatin, 20 mg, Oral, Nightly carvedilol, 3.125 mg, Oral, BID WC furosemide, 40 mg, IntraVENous, BID hydrALAZINE, 25 mg, Oral, TID iron sucrose, 200 mg, IntraVENous, q24h pantoprazole, 40 mg, Oral, qAM AC [2] Hospitalist Progress Note 04/06/2025 [phone]: Please secure chat me for patient care issues. [phone]: Please secure chat [facility] Hospitalist for any issues. Subjective: Admit [...] ferritin, IV Venofer added Adult diet Regular @[id number]@ 24HR INTAKE/OUTPUT: Intake/Output Summary (Last 24 hours) [...] ANAHY CHARLES Mobile Relation: Daughter Preferred language: [place] Ver[place]an Dry Pan Feeder needed? No Westley Martinez MD Division of Hospitalist Medicine [employer] PAGER: [employer] chat [1] History reviewed. No pertinent past medical history. [2] [3] atorvastatin, 20 mg, Oral, Nightly carvedilol, 3.125 mg, Oral, BID WC furosemide, 40 mg, IntraVENous, BID hydrALAZINE, 25 mg, Oral, TID iron sucrose, 200 mg, IntraVENous, q24h pantoprazole, 40 mg, Oral, qAM AC documented in this encounter [facility] 04-14-2025 Note IR US Thoracentesis 650 ml of hines yellow fluid removed. Vaseline guaze dressing applied. Patient tolerated procedure well. Patient returned to IN patient room. [facility] 04-14-2025 Consult note Associated Order (s): IP CONSULT TO PALLIATIVE CARE Consult acknowledged. Patient previously seen by palliative care. Signed off on 04-12. Patient has had worsening status in last couple days, worsening pleural effusion. Spoke with pulmonology ACCOUNTS PAYABLE LEAD, Yesi today. Consult placed. Will see tomorrow s/p thoracentesis. Signed, Bela Agustin APRN, CNP, [facility] P[facility] [phone] Cosigned by Diana Marsh MD at 04/14/2025 1:38 PM EDT Images from the original note were not included. [facility], Pulmonary Medicine [address] [place] [address] [id number] 1935 Date of Admission - 04/05/2025 3:55 PM Date of evaluation - 04/12/2025 Room - [facility] Day - Consulting - Westley [...] ml Output 650 ml Net -410 ml @[id number]@ Physical Exam Physical Exam Vitals and nursing [...] Pulmonary function tests (PFT's) No PFT's in [facility] Sleep History No sleep study available in [facility] Radiology CXR 04/11/25: IMPRESSION: Cardiomegaly with [...] deltoids) Fluid Accumulation: Moderate to Severe Extremities Senior Research Executive Strength: Normal 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 [...] On: Kcal/kg Weight Used for Energy Requirements: [place] Weight for Energy Calculation (kg): 70 kg Total Energy Requirements (kcals/day): 6188-3216 (25-30) Weight Used for Protein Requirements: [place] Weight in Kg Used for Protein Requirements: [...] Body Weight: (none on file to review) [place] Body Weight (lbs) (Calculated): 154 lbs [place] Body Weight (Kg) (Calculated): 70 kg % [place] Body Weight (Calculated): 136.1 % BMI (kg/m2) [...] to determine Darleen Stubbs RDN, LDN, Contact: *[phone] Associated Order(s): INPATIENT CONSULT TO CRITICAL CARE - MEDICAL TEAM Internal Medicine: MICU Initial Consult Name: Mary Charles : 1935(89 y.o.) Date: 04/08/25 Attending: Precious Lewis MD Subjective: Chief Complaint: shortness of breath HPI: Patient is a pleasant 89 year-old male with a history of chronic HFrEF and prior remote tobacco abuse who was admitted to [facility] 04/05/25 with shortness of breath and [...] Normal [] Scar/Lesion/Mass Inspection of teeth/lips/gums Dentition: [x][place] Teeth []Dentures Lips/Gums: [x]Intact []Lesion Present Mucosa: [x][place] []Moist []Dry Neck: External Appearance Overall Appearance: [...] ABGs: Recent Labs 04/08/25 1654 PHART 7.296* [id number] 80.1* PO2ART 92.0 SSC9GZW 38.2* [id number] Nasal Cannula (LPM) Lactic Acid: No results [...] Place garcía, strict I/O's, no indication for PROGRAM DIRECTOR at this time (would be a poor [...] care of himself. -Consider medication for mood? -Wool Hat Flanger support requested. -Monitor. Hx CKD III -CrCl [...] detailed in the note above. Bela Agustin, SUBSTANCE ABUSE SERVICES DIRECTOR - [employer] Palliative Care Assessments: Goals of care: Continue [...] Living status: alone Work history: status: No Buddhism: No methodist on file ROS: See palliative care ROS/ESAS below; All other systems were reviewed and are negative. Chaffee Symptom Assessment Score Chaffee Score Pain Score (if non-verbal, add .FLACC [...] 2024, has a son who lives in [place] and daughter that lives close by Retired from working at [employer] for 43 years No tobacco use Denies [...] Allergies Associated Order(s): IP CONSULT TO CARDIOLOGY [facility] [place] Cardiology Consult Note Reason for Consult/Chief Complaint: [...] daily Consider palliative approach Cari Scherer MD, [facility] DATE of SERVICE: 04/06/2025 [1] History reviewed. No pertinent past medical history. [2] History reviewed. No pertinent surgical history. [3] No family history on file. [4] [5] furosemide, 40 mg, IntraVENous, BID iron sucrose, 200 mg, IntraVENous, q24h pantoprazole, 40 mg, Oral, qAM AC documented in this encounter [facility] 04-13-2025 Hospital Discharg e instructions LOURDES Cervantes CNP - 04/13/2025 12:17 PM EDT Please call duuin at [phone] to arrange for home NIV once stable [...] ANAHY CHARLES Mobile Relation: Daughter Preferred language: Cape Verdean Dry Pan Feeder needed? No Past Surgical History: History reviewed. [...] Minimal assistance Toileting Total assistance Feeding Independent Strategic Client Executive Minimal assistance Med Delivery yes Wound Care [...] Status Date: Discharging to Facility/ Agency Name: [facility] Address:[address] [place] [address] Phone:[phone] Dialysis Facility (if applicable) Name: Address: Dialysis Schedule: Phone: Fax: Quality Assurance Monitor Body/Information Officer signature: ICIAN SECTION Name: Mary Charles Prognosis: [...] to a nursing facility directly from an [facility] or a unit of a [facility] that is not operated by or licensed by [facility] under section 5119.14 or 5160-3-15.1 5 The individual requires the level of services provided by a nursing facility for the condition for which he or she was treated in the hospital and, Physician Certification: I certify the above information and transfer of Mary Charles is necessary for the continuing treatment of the diagnosis listed and that he requires group home facility for less than 30 days. Update Admission H&P: No change in H&P PHYSICIAN SIGNATURE: documented in this encounter [facility] 04-09-2025 Note [facility] 04-09-2025 Procedure note Associated Ord er(s): [...] this procedure note documented in this encounter [facility] 04-09-2025 Note [facility] 04-05-2025 Note [facility] 04-05-2025 History and physical note Attending [...] No Known Allergies documented in this encounter [facility] Evaluation note Diagnosis Acute congestive heart failure, unspecified heart failure type (HCC)- Primary Acute congestive heart failure, unspecified heart failure type (HCC) Anemia, unspecified type Shortness of breath Hypoxia Hypoxemia CHF (congestive heart failure), NYHA class I, acute on chronic, combined (HCC) documented in this encounter [facility]* Diagnosis Acute congestive heart failure, unspecified heart failure type (HCC)- Primary documented in this encounter 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 Pleural effusion Unspecified pleural effusion Acute kidney injury superimposed on chronic kidney disease (HCC) (HCC) 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 chronic kidney disease (HCC) PAC (premature atrial contraction) Supraventricular premature beats Abnormal CAT scan Other nonspecific (abnormal) findings on radiological and other examinations of body structure [facility] Diagnosis Chronic systolic heart failure (HCC)- Primary Chronic systolic heart failure Coronary artery disease involving mechoopda coronary artery of mechoopda heart without angina pectoris Pleural effusion Unspecified [...] Debility Unspecified debility documented in this encounter 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 Pleural effusion Unspecified pleural effusion Acute kidney injury superimposed on chronic kidney disease 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 chronic kidney disease (CMS/HCC) PAC (premature atrial contraction) Supraventricular premature beats Abnormal CAT scan Other nonspecific (abnormal) findings on radiological and other examinations of body structure Chronic systolic heart failure (HCC)- Primary Chronic systolic heart failure [facility] Diagnosis Chronic systolic heart failure (HCC)- Primary Chronic systolic heart failure Coronary artery disease involving mechoopda coronary artery of mechoopda heart without angina pectoris Pleural effusion Unspecified pleural effusion Acute kidney injury superimposed on chronic kidney disease 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 chronic kidney disease (CMS/HCC) PAC (premature atrial contraction) Supraventricular premature beats Abnormal CAT scan Other nonspecific (abnormal) findings on radiological and other examinations of body structure Anemia due to chronic kidney disease, unspecified CKD stage- Primary [facility] Diagnosis Chronic systolic heart failure (HCC)- Primary Chronic systolic heart failure Coronary artery disease involving mechoopda coronary artery of mechoopda heart without angina pectoris Pleural effusion Unspecified pleural effusion Acute kidney injury superimposed on chronic kidney disease 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 chronic kidney disease (CMS/HCC) PAC (premature atrial contraction) Supraventricular premature beats Abnormal CAT scan Other nonspecific (abnormal) findings on radiological and other examinations of body structure Symptomatic anemia- Primary documented in this encounter [facility] Chief Complaint and Reason for [...] type (HCC) Procedures .. Clara, Albaro, MD [address] [place] [address] Phone: tel: fax: [facility] Cardiac Progressive Care Unit [address] [place] [address] Phone: tel: Referral ID Status Reason Start Date Expiration Date Visits Re quested Visits Authorized [id number] 1 1 Reason Comments Hospital Follow-up Congestive [...] sedation for opioid reversal - MUST notify testing consultant provider immediately after first dose, may give [...] Care Teams (unrecognized sec tion and content) Mold Loft Worker Relationship Specialty Start Date End Date Aliya Tadeo RN Craft Superintendent Manager 04/09/25 Mold Loft Worker Relationship Specialty Start Date End Date Aliya Tadeo RN Craft Superintendent Manager 04/09/25 Mold Loft Worker Relationship Specialty Start Date End Date Aliya Tadeo RN Registered Nurse Craft Superintendent Manager 04/09/25 Mold Loft Worker Relationship Specialty Start Date End Date Aliya Tadeo RN Registered Nurse Craft Superintendent Manager 04/09/25 Mold Loft Worker Relationship Specialty Start Date End Date Aliya Tadeo RN Registered Nurse Craft Superintendent Manager 04/09/25 Mold Loft Worker Relationship Specialty Start Date End Date Aliya Tadeo RN Registered Nurse Craft Superintendent Manager 04/09/25 Mold Loft Worker Relationship Specialty Start Date End Date Aliya Tadeo RN Registered Nurse Craft Superintendent Manager 04/09/25 Mold Loft Worker Relationship Specialty Start Date End Date Ravi Kirk DO [address] [place] [id number] PCP - General Internal Medicine 07/19/25 (unrecognized sect ion and content) No Status Records FoundNo Status Records Found INFORMATION SOURCE (unrecogn ized section and content) DATE CREATED AUTHOR 07/19/2025 [facility] DATE CREATED AUTHOR BRENDENS KIYA TROTTER 07/20/2025 [facility] FOR RECORDS PERTAINING TO PATIENTS WHO [...] BE BASED ON THE PRIMARY CLINICAL RECORDS. [facility] [employer] [facility]. provides no warranty or guarantee of the accuracy or completeness of information in this document.
[2025-08-02 08:10] LABS: Hematocrit 22.7 % (40-54); Hemoglobin 7.2 g/dL (13.0-16.5); Red Blood Count 2.45 M/mm3 (4.6-6.2); White Blood Count 14.8 K/mm3 (4.4-11.0)
[2025-08-02 08:11] LABS: Mean Corp Hgb Conc 31.7 g/dL (32-36); Mean Corpuscular Volume 92.7 fL (80-94); Mean Platelet Vol. 8.5 fl (6.2-12.0); Platelet Count 524 K/mm3 (150-450); RBC Distribution Width CV 13.2 % (11.6-14.6); RBC Distribution Width SD 44.9 fl (35.1-43.9)
[2025-08-02 09:38] LABS: Cholesterol 100 mg/dL (<=200); Low Density Lipoprotein Calc. 45 mg/dL; Triglycerides 67 mg/dL; Very Low Density Lipoprotein 13 mg/dL (5-40); cholesterol:hdl ratio screen 2.44
[2025-08-02 09:39] LABS: AST(SGOT) 12 U/L (<=37); Alanine Aminotransfer ALT/SGPT < 5 U/L (<=46); Albumin, Serum 2.9 g/dL (3.4-4.8); Alkaline Phosphatase 55 U/L (40-129); Anion Gap 10 (5-15); BUN 43 mg/dL (4-19); BUN/Creat Ratio 20.5 RATIO (10-20); Calcium,Total 8.6 mg/dL (7.6-11.0); Carbon Dioxide 28.2 mmol/L (21.0-32.0); Chloride 101 mmol/L (98-108); Globulin 3.3 g/dL (2.2-4.2); Glucose 99 mg/dL (70-99); Potassium 4.1 mmol/L (3.3-5.1)
== END ==
LOC: OLS.ACH2 05:00
PROVIDERS: PCP Internal Medicine; Visit Provider Internal Medicine
DX: I25.10 Atherosclerotic heart disease of native coronary artery without angina pectoris (principal); I50.42 Chronic combined systolic (congestive) and diastolic (congestive) heart failure; J96.12 Chronic respiratory failure with hypercapnia
CPT/HCPCS: 36415; 80053; 80061; 85027

== ENCOUNTER → 2025-08-07 | Outpatient (REF) | payer MEDICARE, SELFPAY ==
--- OUTSIDE RECORDS SUMMARY | 2025-08-07 10:41 | XMS RPT_ITS | CCD ---
Author Organization [facility] Care Team Providers Care Paste Maker Name Role Phone Aliya Tadeo RN Unavailable Unavailable Deperro OLS, Ravi Attending Unavailable Ghourbrial, Negro Primary [facility] Unavailable Ghourbrial, Negro Primary [facility] Unavailable Deperro OLS, Ravi Attending Unavailable Deperro OLS, Ravi Attending Unavailable Ghourbrial, [facility] Primary [facility] Unavailable Deperro OLS, Ravi Attending Unavailable Ghourbrial, [facility] Primary Care Unavailable Deperro OLS, Ravi Attending Unavailable Ghourbrial, 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] Onset: 05-03-2025 [...] SCREEN Mando 07-19-2025 ABO GROUPING A Normal [facility] Comment on above: Performed By: #### L [id number] ####Security Control Room Officer: UNA ARCE ([id number])[facility] ([facility])[address] RH TYPE IN BLOOD Negative Normal [facility] Comment on above: Performed By: #### L [id number] ####Security Control Room Officer: UNA ARCE ([id number])[facility] ([facility])[address] [place] [place] [id number] [place] [address] Basic Metabolic Profile (BMP )on 07-19-2025 BUN/CRE 17.2 RATIO Normal 10-20 [facility] Comment on above: Order Comment: 542.1 Performed By: #### L 500.2500, L100.0500 #### [facility] [address] [place], [address] Calcium [Mass/Vol] 8.6 mg/dL Normal 7.6-11.0 [facility] Comment on above: Order Comment: 542.1 Performed By: #### L 500.2500, L100.0500 #### [facility] [address] [place], [address] Chloride [Moles/Vol] 99 mmol/L Normal 98-108 [facility] Comment on above: Order Comment: 542.1 Performed By: #### L 500.2500, L100.0500 #### [facility] [address] [place], [address] CO2 [Moles/Vol] 28.6 mmol/L Normal 21.0-32.0 [facility] Comment on above: Order Comment: 542.1 Performed By: #### L 500.2500, L100.0500 #### [facility] [address] [place], [address] Creatinine [Mass/Vol] 1.77 mg/dL High 0.70-1.20 [facility] Comment on above: Order Comment: 542.1 Performed By: #### L 500.2500, L100.0500 #### [facility] [address] [place], [address] GAP 9 Normal 5-15 [facility] Comment on above: Order Comment: 542.1 Performed By: #### L 500.2500, L100.0500 #### [facility] [address] [place], [address] GFR/1.73 sq M.predicted among non-blacks MDRD (S/P/Bld) [Vol rate/Area] 36 mL/min/{1.73_m2} Low >60 [facility] Comment on above: Order Comment: 542.1 Result Comment: mL/m in/1.73m2 CKD-EPI Creatinine Equation (2020) Performed By: #### L 500.2500, L100.0500 #### [facility] [address] [place], [address] Glucose [Mass/Vol] 93 mg/dL Normal 70-99 [facility] Comment on above: Order Comment: 542.1 Performed By: #### L 500.2500, L100.0500 #### [facility] [address] [place], [address] Potassium [Moles/Vol] 3.7 mmol/L Normal 3.3-5.1 [facility] Comment on above: Order Comment: 542.1 Performed By: #### L 500.2500, L100.0500 #### [facility] [address] [place], [address] Sodium [Moles/Vol] 137 mmol/L Normal 133-145 [facility] Comment on above: Order Comment: 542.1 Performed By: #### L 500.2500, L100.0500 #### [facility] [address] [place], [address] Urea nitrogen [Mass/Vol] 30 mg/dL High 4-19 [facility] Comment on above: Order Comment: 542.1 Performed By: #### L 500.2500, L100.0500 #### [facility] [address] [place], [address] Blood type and Crossmatch keagan victor (Bld)on 07-19-2025 ABO group Froilan (Bld) A [facility] Blood group antibody screen GEL Ql Negative [facility] D Ag Ql (RBC) Negative [facility] CBC W Auto Differential pane l (Bld)Ordered By: Haroldo Alvarez on 07-19-2025 Erythrocyte distribution width (RBC) [Ratio] 14.0 % 11.5 - 15.0 % [facility] Hematocrit (Bld) [Volume fraction] 24.6 % Low 40.0 - 52.0 % [facility] Hemoglobin (Bld) [Mass/Vol] 7.8 g/dL Low 13.0 - 18.0 g/dL [facility] Interpretation and review of laboratory results Abnormal [facility] MCH (RBC) [Entitic mass] 29.2 pg 26. 0 - 34.0 pg [facility] MCHC (RBC) [Mass/Vol] 31.7 % 30.5 - 36.0 % [facility] MCV (RBC) [Entitic vol] 92.1 fL 77.0 - 99.0 fL [facility] Platelet mean volume (Bld) [Entitic vol] 8.3 fL Low 9.0 - 12.7 fL [facility] Platelets (Bld) [#/Vol] 581 10*3/uL High 140 - 440 10*3/uL [facility] RBC (Bld) [#/Vol] 2.67 10*6/uL Low 4.40 - 5.9 0 10*6/uL [facility] WBC (Bld) [#/Vol] 15.6 10*3/uL High 3.6 - 10.7 10*3/uL [facility] CBC WITH AUTO DIFFERENTIALon 07-19-2025 Erythrocyte distribution width (RBC) [Ratio] 14.0 % Normal 11.5-15.0 [facility] Comment on above: Performed By: #### L [id number], [id number] ####Security Control Room Officer: UNA ARCE ([id number])[facility] ([address] Hematocrit (Bld) [Volume fraction] 24.6 % Low 40.0-52.0 [facility] Comment on above: Performed By: #### L [id number], [id number] ####Security Control Room Officer: UNA ARCE ([id number])[facility] (SBHLAB)[address] Hemoglobin (Bld) [Mass/Vol] 7.8 g/dL Low 13.0-18.0 [facility] Comment on above: Performed By: #### L [id number], [id number] ####Security Control Room Officer: UNA YAZMIN ([id number])[facility] (SB[facility])[address] MCH (RBC) [Entitic mass] 29.2 pg Normal 26.0-34.0 [facility] Comment on above: Performed By: #### L [id number], [id number] ####Security Control Room Officer: UNA BERMUDEZPEDRO ([id number])[facility] (SB[facility])[address] MCHC 31.7 % Normal 30.5-36.0 [facility] Comment on above: Performed By: #### L [id number], [id number] ####Security Control Room Officer: UNA ARCE ([id number])[facility] (SB[facility])[address] MCV (RBC) [Entitic vol] 92.1 fL Normal 77.0-99.0 [facility] Comment on above: Performed By: #### L [id number], [id number] ####Security Control Room Officer: UNA ARCE ([id number])[facility] [place] (SBHLAB)[address] Platelet mean volume (Bld) [Entitic vol] 8.3 fL Low 9.0-12.7 [facility] Comment on above: Performed By: #### L [id number], [id number] ####Security Control Room Officer: UNA ARCE ([id number])[facility] (SB[facility])[address] Platelets (Bld) [#/Vol] 581 10*3/uL High 140-440 [facility] Comment on above: Performed By: #### L [id number], [id number] ####Security Control Room Officer: UNAANJEL ARCE ([id number])[facility] (SBHLAB)[address] [place] [address] RBC (Bld) [#/Vol] 2.67 10*6/uL Low 4.40-5.90 [facility] Comment on above: Performed By: #### L [id number], [id number] ####Security Control Room Officer: UNAANJEL ARCE ([id number])[facility] [place] (SBHLAB)[address] [place] [address] WBC (Bld) [#/Vol] 15.6 10*3/uL High 3.6-10.7 [facility] Comment on above: Performed By: #### L [id number], [id number] ####Security Control Room Officer: UNAANJEL ARCE ([id number])[facility] (SBHLAB)[address] [place] [address] CBC-Complete Blood Cnt No [facility] 07-19-2025 Erythrocyte distribution width (RBC) [Ratio] 14.1 % Normal 11.6-14.6 [facility] Comment on above: Order Comment: 542.1 Performed By: #### L 500.2500, L100.0500 #### [facility] [address] [place], [address] Hematocrit (Bld) [Volume fraction] 21.2 % Low 40-54 [facility] Comment on above: Order Comment: 542.1 Performed By: #### L 500.2500, L100.0500 #### [facility] [address] [place], [address] Hemoglobin (Bld) [Mass/Vol] 6.6 g/dL Low 13.0-16.5 [facility] Comment on above: Order Comment: 542.1 Performed By: #### L 500.2500, L100.0500 #### [facility] [address] [place], [address] MCH (RBC) [Entitic mass] 28.9 pg Normal 27.0-32.0 [facility] Comment on above: Order Comment: 542.1 Performed By: #### L 500.2500, L100.0500 #### [facility] [address] [place], [address] MCHC (RBC) [Mass/Vol] 31.1 g/dL Low 32-36 [facility] Comment on above: Order Comment: 542.1 Performed By: #### L 500.2500, L100.0500 #### [facility] [address] [place], [address] MCV (RBC) [Entitic vol] 93.0 fL Normal 80-94 [facility] Comment on above: Order Comment: 542.1 Performed By: #### L 500.2500, L100.0500 #### [facility] [address] [place], [address] Platelet mean volume (Bld) [Entitic vol] 8.5 fL Normal 6.2-12.0 [facility] Comment on above: Order Comment: 542.1 Performed By: #### L 500.2500, L100.0500 #### [facility] [address] [place], [address] Platelets (Bld) [#/Vol] 516 10*3/uL High 150-450 [facility] Comment on above: Order Comment: 542.1 Performed By: #### L 500.2500, L100.0500 #### [facility] [address] [place], [address] RBC (Bld) [#/Vol] 2.28 10*6/uL Low 4.6-6.2 [facility] Comment on above: Order Comment: 542.1 Performed By: #### L 500.2500, L100.0500 #### [facility] [address] [place], [address] RDW SD 47.1 fl High 35.1-43.9 [facility] Comment on above: Order Comment: 542.1 Performed By: #### L 500.2500, L100.0500 #### [facility] [address] [place], [address] WBC (Bld) [#/Vol] 12.9 10*3/uL High 4.4-11.0 [facility] Comment on above: Order Comment: 542.1 Performed By: #### L 500.2500, L100.0500 #### [facility] [address] [place], [address] ED Nursing Noteon 07-19-2025 ED Nursing Note [facility] arrived to transport pt to home facility . Pt transferred to stretcher without difficulty. Pt A&O, calm, and cooperative, no signs of distress noted. VS stable. Resp even, non labored. Normal [facility] ED Nursing Note Report given to [facility]. Marleni Normal [facility] ED Nursing Note Post H&H not needed per Dr. Rose. Ok to dc 30 mins after unit is complete. Normal [facility] ED Nursing Note Meal order placed Normal [facility] ED Nursing Note This RN sat bedside for the first 15 mins of blood transfusion. Pt denied c/o any transfusion reaction symptoms. Pt's vitals rechecked before leaving the room. Normal [facility] ED Provider Noteon ED Provider Note Normal [facility] MANUAL DIFFERENTIALon 2024 BASOPHILS (10*3/UL) IN BLOOD BY MANUAL COUNT 0.3 10*3/uL High 0.0-0.[address] [facility] Comment on above: Performed By: #### L VA0807, [id number] ####Security Control Room Officer: UNA ARCE ([id number])[facility] (SBHLAB)[address] [place] [address] BASOPHILS/100 LEUKOCYTES IN BLOOD BY MANUAL COUNT 2 % Normal 0-2 [facility] Comment on above: Performed By: #### L [id number], [id number] ####Security Control Room Officer: UNA ARCE ([id number])[facility] [place] (SBHLAB)[address] CELLS COUNTED TOTAL (#) IN BLOOD 100 Normal [facility] Comment on above: Performed By: #### L [id number], [id number] ####Security Control Room Officer: UNA ARCE ([id number])[facility] [place] (SBHLAB)[address] DIFFERENTIAL METHOD Manual differential performed Normal [facility] Comment on above: Performed By: #### L AZ3264, [id number] ####Security Control Room Officer: UNA ARCE ([id number])[facility] ([facility])[address] EOSINOPHILS (10*3/UL) IN BLOOD BY MANUAL COUNT 0.3 10*3/uL Normal 0.0-0.5 [facility] Comment on above: Performed By: #### L NU1170, [id number] ####Security Control Room Officer: UNA ARCE ([id number])[facility] [place] (SBHLAB)[address] [place] [address] [place] EOSINOPHILS/100 LEUKOCYTES IN BLOOD BY MANUAL COUNT 2 % Normal 0-6 [facility] Comment on above: Performed By: #### L [id number], [id number] ####Security Control Room Officer: UNA ARCE ([id number])[facility] [place] (SBHLAB)[address] [place] [address] [place] HYPOCHROMIA (PRESENCE) IN BLOOD BY LIGHT MICROSCOPY Slight Abnormal (none) [facility] Comment on above: Performed By: #### L GO1656, [id number] ####Security Control Room Officer: UNA ARCE ([id number])[facility] [place] (SBHL[facility])[address] LEUKOCYTE MORPHOLOGY FINDING IN BLOOD Normal Normal [facility] Comment on above: Performed By: #### L [id number], [id number] ####Security Control Room Officer: UNAANJEL ARCE ([id number])[facility] [place] (SBHLAB)[address] [place] [address] [place] LYMPHOCYTES (10*3/UL) IN BLOOD BY MANUAL COUNT 3.3 10*3/uL Normal 1.0-4.3 [facility] Comment on above: Performed By: #### L [id number], [id number] ####Security Control Room Officer: UNAANJEL ARCE ([id number])[facility] [place] (SBHL[facility])[address] [place] [address] [place] LYMPHOCYTES/100 LEUKOCYTES IN BLOOD BY MANUAL COUNT 21 % Normal 15-45 [facility] Comment on above: Performed By: #### L [id number], [id number] ####Security Control Room Officer: UNAANJEL ARCE ([id number])[facility] [place] (SBHLAB)[address] [place] [address] [place] MONOCYTES (10*3/UL) IN BLOOD BY MANUAL COUNT 1.4 10*3/uL High 0.0-0.9 [facility] Comment on above: Performed By: #### L ST0369, [id number] ####Security Control Room Officer: UNA BERMUDEZPEDRO ([id number])[facility] [place] (SBHLAB)[address] [place] [address] [place] MONOCYTES/100 LEUKOCYTES IN BLOOD BY MANUAL COUNT 9 % Normal 5-13 [facility] Comment on above: Performed By: #### L [id number], [id number] ####Security Control Room Officer: UNA BERMUDEZPEDRO ([id number])[facility] [place] (SBHLAB)[address] [place] [address] [place] OVALOCYTES PRESENCE IN BLOOD BY LIGHT MICROSCOPY Slight Abnormal (none) [facility] Comment on above: Performed By: #### L [id number], [id number] ####Security Control Room Officer: UNA STAUFFERMELANIE ([id number])[facility] [place] (SBHLAB)[address] [place] [address] [place] PLATELET MORPHOLOGY IN BLOOD Normal Normal [facility] Comment on above: Performed By: #### L [id number], [id number] ####Security Control Room Officer: UNAANJEL ARCE ([id number])[facility] (SBHLAB)[address] POLYCHROMASIA IN BLOOD BY LIGHT MICROSCOPY Slight Abnormal (none) [facility] Comment on above: Performed By: #### L [id number], [id number] ####Security Control Room Officer: UNA BERMUDEZPEDRO ([id number])[facility] (SB[facility])[address] SEGEMENTED NEUTROPHILS/100 LEUKOCYTES BY MANUAL COUNT 66 % Normal 38-82 [facility] Comment on above: Performed By: #### L [id number], [id number] ####Security Control Room Officer: UNA YAZMIN ([id number])[facility] (SBHLAB)[address] [place] [address] SEGMENTED NEUTROPHILS (10*3/UL)IN BLOOD BY MANUAL COUNT 10.3 10*3/uL High 1.8-7.5 [facility] Comment on above: Performed By: #### L [id number], [id number] ####Security Control Room Officer: UNA YAZMIN ([id number])[facility] (SBHLAB)[address] [place] [address] Manual differential performe d Ql (Bld)Ordered By: Myriam Choi on 07-19-2025 Basophils (Bld) [#/Vol] 0.3 10*3/uL High 0.0 - 0.2 10*3/uL [facility] Basophils/100 WBC (Bld) 2 % 0 - 2 % [facility] Cells Counted Total (Bld) [#] 100 {cells} [facility] Differential Method Manual differential performed [facility] Eosinophils (Bld) [#/Vol] 0.3 10*3/uL 0.0 - 0.5 10*3/uL [facility] Eosinophils/100 WBC (Bld) 2 % 0 - 6 % [facility] Hypochromia Ql (Bld) Slight Abnormal (none) [facility] Interpretation and review of laboratory results Abnormal [facility] Leukocyte morphology finding Nom (Bld) Normal [facility] Lymphocytes (Bld) [#/Vol] 3.3 10*3/uL 1.0 - 4.3 10*3/uL [facility] Lymphocytes/100 WBC (Bld) 21 % 15 - 45 % [facility] Monocytes (Bld) [#/Vol] 1.4 10*3/uL High 0.0 - 0.9 10*3/uL [facility] Monocytes/100 WBC (Bld) 9 % 5 - 13 % [facility] Neutrophils (Bld) [#/Vol] 10.3 10*3/uL High 1.8 - 7.5 10*3/uL [facility] Ovalocytes LM Ql (Bld) Slight Abnormal (none) [facility] Platelet morphology finding Nom (Bld) Normal [facility] Polychromasia LM Ql (Bld) Slight Abnormal (none) [facility] Segmented neutrophils/100 WBC (Bld) 66 % 38 - 82 % [facility] No Panel Informationon 07-19 Blood Expiration Date [id number] [facility] Crossmatch interpretation COMP [facility] Dispense Status Transfused [facility] Blood Type 600 [facility] PRODUCT CODE [id number] [facility] ABO A [id number] Negative [facility] Volume 300 mL [facility] Progress Noteon 07-19-2025 Progress Note Normal [facility] Progress Noteon 07-15-2025 Progress Note Normal [facility] 36on 07-14-2025 36 Faxed signed order t o [facility] fax#[phone], and scanned to Media. Normal [facility] [address] Hess. Normal [facility] 36 [facility] faxed order to discontinue Hydralazine, and Spironolactone. Placed on nurses desk to have Dr. Hess sign it. Normal [facility] 36on 07-07-2025 36 Darby called back t o verify the diuretic instructions; she had the Lasix written down, so I verified that it was actually torsemide. She verbalized understanding and was thankful for the call. Normal [facility] 36 Normal [facility] Folates,Serum (Folic Acid)on 07-07-2025 FOLATES,SERUM 8.25 ng/mL Normal 4.60-34.80 [facility] Comment on above: Order Comment: 542-1 N Performed By: #### L 506.0200, L100.0600, L503.0106, L503.6030 #### [facility] [address] [place], [address] HH, Hemoglobin AND Hematocri ton 07-07-2025 Hematocrit (Bld) [Volume fraction] 23.3 % Low 40-54 [facility] Comment on above: Order Comment: 542-1 Performed By: #### L 506.0200, L100.0600, L503.0106, L503.6030 #### [facility] [address] [place], [address] Hemoglobin (Bld) [Mass/Vol] 7.3 g/dL Low 13.0-16.5 [facility] Comment on above: Order Comment: 54-1 Performed By: #### L 506.0200, L100.0600, L503.0106, L503.6030 #### [facility] [address] [place], [address] Iron+Iron Binding Capacityon 07-07-2025 Iron [Mass/Vol] 27 ug/dL Low 65-175 [facility] Comment on above: Order Comment: 542-1 Performed By: #### L 506.0200, L100.0600, L503.0106, L503.6030 #### [facility] [address] [place], [address] IRON SATURATION 9.6 Normal 9-55 [facility] Comment on above: Order Comment: 542-1 Performed By: #### L 506.0200, L100.0600, L503.0106, L503.6030 #### [facility] [address] [place], [address] TIBC 278 ug/dL Normal 250-450 [facility] Comment on above: Order Comment: 542-1 Performed By: #### L 506.0200, L100.0600, L503.0106, L503.6030 #### [facility] [address] [place], [address] UIBC 251 ug/dL Normal 228-428 [facility] Comment on above: Order Comment: 542-1 Performed By: #### L 506.0200, L100.0600, L503.0106, L503.6030 #### [facility] [address] [place], [address] Vitamin B12on 07-07-2025 Cobalamin (Vitamin B12) [Mass/Vol] 334 pg/mL Normal 180-914 [facility] Comment on above: Order Comment: 542-1 Performed By: #### L 506.0200, L100.0600, L503.0106, L503.6030 #### [facility] [address] [place], [address] 36on 07-06-2025 36 Cr 1.9, K+ 3.7, hemoglobin 7.1 on 07/05/25. BP's mostly 100-110's/50/60's; one SBP outlier of 94, one outlier of 121. HR's 60-70's. Note from nursing: Normal [facility] 36 [facility] faxed 07/05/25 BMP, and CBC, and vitals. Records to be scanned to chart. Normal [facility] 36 Normal [facility] Basic Metabolic Profile (BMP )on 07-05-2025 BUN/CRE 20.8 RATIO High 06-28 [facility] Comment on above: Order Comment: 542-1 N Performed By: #### L 506.0200, L100.0600, L503.0106, L503.6030 #### [facility] [address] [place], [address] Calcium [Mass/Vol] 8.5 mg/dL Normal 7.6-11.0 [facility] Comment on above: Order Comment: 542-1 N Performed By: #### L 506.0200, L100.0600, L503.0106, L503.6030 #### [facility] [address] [place], [address] Chloride [Moles/Vol] 101 mmol/L Normal 98-108 [facility] Comment on above: Order Comment: 542-1 N Performed By: #### L 506.0200, L100.0600, L503.0106, L503.6030 #### [facility] [address] [place], [address] CO2 [Moles/Vol] 28.6 mmol/L Normal 21.0-32.0 [facility] Comment on above: Order Comment: 542-1 N Performed By: #### L 506.0200, L100.0600, L503.0106, L503.6030 #### [facility] [address] [place], [address] Creatinine [Mass/Vol] 1.90 mg/dL High 0.70-1.20 [facility] Comment on above: Order Comment: 542-1 N Performed By: #### L 506.0200, L100.0600, L503.0106, L503.6030 #### [facility] [address] [place], [address] GAP 10 Normal 5-15 [facility] Comment on above: Order Comment: 542-1 N Performed By: #### L 506.0200, L100.0600, L503.0106, L503.6030 #### [facility] [address] [place], [address] GFR/1.73 sq M.predicted among non-blacks MDRD (S/P/Bld) [Vol rate/Area] 33 mL/min/{1.73_m2} Low >60 [facility] Comment on above: Order Comment: 542-1 N Result Comment: mL/m in/1.73m2 CKD-EPI Creatinine Equation (2020) Performed By: #### L 506.0200, L100.0600, L503.0106, L503.6030 #### [facility] [address] [place], [address] Glucose [Mass/Vol] 92 mg/dL Normal 70-99 [facility] Comment on above: Order Comment: 542-1 N Performed By: #### L 506.0200, L100.0600, L503.0106, L503.6030 #### [facility] [address] [place], [address] Potassium [Moles/Vol] 3.7 mmol/L Normal 3.3-5.1 [facility] Comment on above: Order Comment: 542-1 N Performed By: #### L 506.0200, L100.0600, L503.0106, L503.6030 #### [facility] [address] [place], [address] Sodium [Moles/Vol] 140 mmol/L Normal 133-145 [facility] Comment on above: Order Comment: 542-1 N Performed By: #### L 506.0200, L100.0600, L503.0106, L503.6030 #### [facility] [address] [place], [address] Urea nitrogen [Mass/Vol] 40 mg/dL High 4-19 [facility] Comment on above: Order Comment: 542-1 N Performed By: #### L 506.0200, L100.0600, L503.0106, L503.6030 #### [facility] [address] [place], [address] CBC-Complete Blood Cnt No Di ffon 07-05-2025 Erythrocyte distribution width (RBC) [Ratio] 14.8 % High 11.6-14.6 [facility] Comment on above: Order Comment: 542-1 N Performed By: #### L 506.0200, L100.0600, L503.0106, L503.6030 #### [facility] [address] [place], [address] Hematocrit (Bld) [Volume fraction] 23.2 % Low 40-54 [facility] Comment on above: Order Comment: 542-1 N Performed By: #### L 506.0200, L100.0600, L503.0106, L503.6030 #### [facility] [address] [place], [address] Hemoglobin (Bld) [Mass/Vol] 7.1 g/dL Low 13.0-16.5 [facility] Comment on above: Order Comment: 542-1 N Performed By: #### L 506.0200, L100.0600, L503.0106, L503.6030 #### [facility] [address] [place], [address] MCH (RBC) [Entitic mass] 28.9 pg Normal 27.0-32.0 [facility] Comment on above: Order Comment: 542-1 N Performed By: #### L 506.0200, L100.0600, L503.0106, L503.6030 #### [facility] [address] [place], [address] MCHC (RBC) [Mass/Vol] 30.6 g/dL Low 32-36 [facility] Comment on above: Order Comment: 542-1 N Performed By: #### L 506.0200, L100.0600, L503.0106, L503.6030 #### [facility] [address] [place], [address] MCV (RBC) [Entitic vol] 94.3 fL High 80-94 [facility] Comment on above: Order Comment: 542-1 N Performed By: #### L 506.0200, L100.0600, L503.0106, L503.6030 #### [facility] [address] [place], [address] Platelet mean volume (Bld) [Entitic vol] 8.8 fL Normal 6.2-12.0 [facility] Comment on above: Order Comment: 542-1 N Performed By: #### L 506.0200, L100.0600, L503.0106, L503.6030 #### [facility] [address] [place], [address] Platelets (Bld) [#/Vol] 507 10*3/uL High 150-450 [facility] Comment on above: Order Comment: 542-1 N Performed By: #### L 506.0200, L100.0600, L503.0106, L503.6030 #### [facility] [address] [place], [address] RBC (Bld) [#/Vol] 2.46 10*6/uL Low 4.6-6.2 [facility] Comment on above: Order Comment: 542-1 N Performed By: #### L 506.0200, L100.0600, L503.0106, L503.6030 #### [facility] [address] [place], [address] RDW SD 49.7 fl High 35.1-43.9 [facility] Comment on above: Order Comment: 542-1 N Performed By: #### L 506.0200, L100.0600, L503.0106, L503.6030 #### [facility] [address] [place], [address] WBC (Bld) [#/Vol] 12.0 10*3/uL High 4.4-11.0 [facility] Comment on above: Order Comment: 542-1 N Performed By: #### L 506.0200, L100.0600, L503.0106, L503.6030 #### [facility] [address] [place], [address] Progress Noteon 06-30-2025 Progress Note Normal [facility] Basic Metabolic Profile (BMP )on 06-28-2025 BUN/CRE 23.4 RATIO High - [facility] Comment on above: Order Comment: 212.1 Performed By: #### L 500.2500 #### [facility] [address] [place], [address] Calcium [Mass/Vol] 8.4 mg/dL Normal 7.6-11.0 [facility] Comment on above: Order Comment: 212.1 Performed By: #### L 500.2500 #### [facility] [address] [place], [address] Chloride [Moles/Vol] 100 mmol/L Normal 98-108 [facility] Comment on above: Order Comment: 212.1 Performed By: #### L 500.2500 #### [facility] [address] [place], [address] CO2 [Moles/Vol] 27.4 mmol/L Normal 21.0-32.0 [facility] Comment on above: Order Comment: 212.1 Performed By: #### L 500.2500 #### [facility] [address] [place], [address] Creatinine [Mass/Vol] 1.72 mg/dL High 0.70-1.20 [facility] Comment on above: Order Comment: 212.1 Performed By: #### L 500.2500 #### [facility] [address] [place], [address] GAP 10 Normal 5-15 [facility] Comment on above: Order Comment: 212.1 Performed By: #### L 500.2500 #### [facility] [address] [place], [address] GFR/1.73 sq M.predicted among non-blacks MDRD (S/P/Bld) [Vol rate/Area] 38 mL/min/{1.73_m2} Low >60 [facility] Comment on above: Order Comment: 212.1 Result Comment: mL/m in/1.73m2 CKD-EPI Creatinine Equation (2020) Performed By: #### L 500.2500 #### [facility] [address] [place], [address] Glucose [Mass/Vol] 88 mg/dL Normal 70-99 [facility] Comment on above: Order Comment: 212.1 Performed By: #### L 500.2500 #### [facility] [address] [place], [address] Potassium [Moles/Vol] 3.9 mmol/L Normal 3.3-5.1 [facility] Comment on above: Order Comment: 212.1 Performed By: #### L 500.2500 #### [facility] [address] [place], [address] Sodium [Moles/Vol] 137 mmol/L Normal 133-145 [facility] Comment on above: Order Comment: 212.1 Performed By: #### L 500.2500 #### [facility] [address] [place], [address] Urea nitrogen [Mass/Vol] 40 mg/dL High 4-19 [facility] Comment on above: Order Comment: 212.1 Performed By: #### L 500.2500 #### [facility] [address] [place], [address] 36on 06-24-2025 36 Normal [facility] 36 Normal [facility] 36 06/24/25 BMP, blood pressure, pulse summary, and medication notes faxed from [facility]. Records scanned to Media. Normal [facility] Basic Metabolic Profile (BMP )on 06-24-2025 BUN/CRE 25.8 RATIO High 10-20 [facility] Comment on above: Order Comment: 212.1 Performed By: #### L 500.2500 #### [facility] [address] [place], [address] Calcium [Mass/Vol] 8.4 mg/dL Normal 7.6-11.0 [facility] Comment on above: Order Comment: 212.1 Performed By: #### L 500.2500 #### [facility] [address] [place], [address] Chloride [Moles/Vol] 97 mmol/L Low 98-108 [facility] Comment on above: Order Comment: 212.1 Performed By: #### L 500.2500 #### [facility] [address] [place], [address] CO2 [Moles/Vol] 26.9 mmol/L Normal 21.0-32.0 [facility] Comment on above: Order Comment: 212.1 Performed By: #### L 500.2500 #### [facility] [address] [place], [address] Creatinine [Mass/Vol] 1.80 mg/dL High 0.70-1.20 [facility] Comment on above: Order Comment: 212.1 Performed By: #### L 500.2500 #### [facility] [address] [place], [address] GAP 12 Normal 5-15 [facility] Comment on above: Order Comment: 212.1 Performed By: #### L 500.2500 #### [facility] [address] [place], [address] GFR/1.73 sq M.predicted among non-blacks MDRD (S/P/Bld) [Vol rate/Area] 36 mL/min/{1.73_m2} Low >60 [facility] Comment on above: Order Comment: 212.1 Result Comment: mL/m in/1.73m2 CKD-EPI Creatinine Equation (2020) Performed By: #### L 500.2500 #### [facility] [address] [place], [address] Glucose [Mass/Vol] 87 mg/dL Normal 70-99 [facility] Comment on above: Order Comment: 212.1 Performed By: #### L 500.2500 #### [facility] [address] [place], [address] Potassium [Moles/Vol] 3.8 mmol/L Normal 3.3-5.1 [facility] Comment on above: Order Comment: 212.1 Performed By: #### L 500.2500 #### [facility] [address] [place], [address] Sodium [Moles/Vol] 137 mmol/L Normal 133-145 [facility] Comment on above: Order Comment: 212.1 Performed By: #### L 500.2500 #### [facility] [address] [place], [address] Urea nitrogen [Mass/Vol] 47 mg/dL High 4-19 [facility] Comment on above: Order Comment: 212.1 Performed By: #### L 500.2500 #### [facility] [address] [place], [address] Progress Noteon 06-24-2025 Progress Note Attempted to meet with pt. He no longer resides here. Facility uncertain where he has moved to. Message left on primary contacts number Bereket to return call to the palliative group at [phone] [facility] BASIC METABOLIC PANELon 06-09 Anion gap [Moles/Vol] 15 mmol/L High 3-13 [facility] Comment on above: Performed By: #### L AB15 ####Security Control Room Officer: UNA ARCE ([id number])[facility] (SBHLAB)[address] Calcium [Mass/Vol] 8.4 mg/dL Low 8.8-10.0 [facility] Comment on above: Performed By: #### L AB15 ####Security Control Room Officer: UNA AREC ([id number])[facility] [place] ([facility])[address] Chloride [Moles/Vol] 97 mmol/L Low 98-107 [facility] Comment on above: Performed By: #### L AB15 ####Security Control Room Officer: UNA MOHRCER ([id number])[facility] [place] ([facility])[address] CO2 [Moles/Vol] 25 mmol/L Normal 23-31 [facility] Comment on above: Performed By: #### L AB15 ####Security Control Room Officer: UNA ARCE ([id number])[facility] [place] ([facility])[address] Creatinine [Mass/Vol] 1.97 mg/dL High 0.72-1.25 [facility] Comment on above: Performed By: #### L AB15 ####Security Control Room Officer: UNA STAUFFERMELANIE ([id number])[facility] [place] (SB[facility])[address] GLOMERULAR FILTRATION RATE ML/MIN/1.73 SQ M.PREDICTED 31.9 mL/min/1.73m*2 Low >60.0 [facility] Comment on above: Result Comment: Calc ulation based on the Chronic Kidney Disease Epidemiology Collaboration (CKD-EPI) equation refit without adjustment for race Performed By: #### L AB15 ####Security Control Room Officer: UNA ARCE ([id number])[facility] [place] ([facility])[address] Glucose [Mass/Vol] 108 mg/dL Normal 82-115 [facility] Comment on above: Performed By: #### L AB15 ####Security Control Room Officer: UNA ARCE ([id number])[facility] (SBHLAB)[address] Potassium [Moles/Vol] 4.1 mmol/L Normal 3.5-5.1 [facility] Comment on above: Result Comment: [facility] potassium values may be up to 0.5 mmol/L lower than serum values. Performed By: #### L AB15 ####Security Control Room Officer: UNA ARCE ([id number])[facility] (SBHLAB)[address] Sodium [Moles/Vol] 137 mmol/L Normal 136-145 [facility] Comment on above: Performed By: #### L AB15 ####Security Control Room Officer: UNA ARCE ([id number])[facility] Urea nitrogen [Mass/Vol] 51 mg/dL High 9-23 [facility] Comment on above: Performed By: #### L AB15 ####Security Control Room Officer: UNA ARCE ([id number])[facility] ([facility] BLOOD TYPE AND SCREEN GELon 06-21-2025 ABO GROUPING A Normal [facility] Comment on above: Performed By: #### L [id number] ####Security Control Room Officer: UNA ARCE ([id number])[facility] ([facility])[address] [place] [address] RH TYPE IN BLOOD Negative Normal [facility] Comment on above: Performed By: #### L [id number] ####Security Control Room Officer: UNA ARCE ([id number])[facility] ([facility])[address] [place] [address] Basic Metabolic Profile (BMP )on 06-21-2025 BUN/CRE 25.4 RATIO High 10-20 [facility] Comment on above: Order Comment: 212.1 Performed By: #### L 100.0500, L500.2500 #### [facility] [address] [place], [address] Calcium [Mass/Vol] 8.4 mg/dL Normal 7.6-11.0 [facility] Comment on above: Order Comment: 212.1 Performed By: #### L 100.0500, L500.2500 #### [facility] [address] [place], [address] Chloride [Moles/Vol] 97 mmol/L Low 98-108 [facility] Comment on above: Order Comment: 212.1 Performed By: #### L 100.0500, L500.2500 #### [facility] [address] [place], [address] CO2 [Moles/Vol] 29.6 mmol/L Normal 21.0-32.0 [facility] Comment on above: Order Comment: 212.1 Performed By: #### L 100.0500, L500.2500 #### [facility] [address] [place], [address] Creatinine [Mass/Vol] 1.86 mg/dL High 0.70-1.20 [facility] Comment on above: Order Comment: 212.1 Performed By: #### L 100.0500, L500.2500 #### [facility] [address] [place], [address] GAP 10 Normal 5-15 [facility] Comment on above: Order Comment: 212.1 Performed By: #### L 100.0500, L500.2500 #### [facility] [address] [place], [address] GFR/1.73 sq M.predicted among non-blacks MDRD (S/P/Bld) [Vol rate/Area] 34 mL/min/{1.73_m2} Low >60 [facility] Comment on above: Order Comment: 212.1 Result Comment: mL/m in/1.73m2 CKD-EPI Creatinine Equation (2020) Performed By: #### L 100.0500, L500.2500 #### [facility] [address] [place], [address] Glucose [Mass/Vol] 93 mg/dL Normal 70-99 [facility] Comment on above: Order Comment: 212.1 Performed By: #### L 100.0500, L500.2500 #### [facility] [address] [place], [address] Potassium [Moles/Vol] 3.8 mmol/L Normal 3.3-5.1 [facility] Comment on above: Order Comment: 212.1 Performed By: #### L 100.0500, L500.2500 #### [facility] [address] [place], [address] Sodium [Moles/Vol] 136 mmol/L Normal 133-145 [facility] Comment on above: Order Comment: 212.1 Performed By: #### L 100.0500, L500.2500 #### [facility] [address] [place], [address] Urea nitrogen [Mass/Vol] 47 mg/dL High 4-19 [facility] Comment on above: Order Comment: 212.1 Performed By: #### L 100.0500, L500.2500 #### [facility] [address] [place], [address] Basic metabolic 1998 panelon 06-21-2025 Anion gap [Moles/Vol] 15 mmol/L High 3 - 13 mmol/L [facility] Calcium [Mass/Vol] 8.4 mg/dL Low 8.8 - 10. 0 mg/dL [facility] Chloride [Moles/Vol] 97 mmol/L Low 98 - 10 7 mmol/L [facility] CO2 [Moles/Vol] 25 mmol/L 23 - 31 mmol/L [facility] Creatinine [Mass/Vol] 1.97 mg/dL High 0.72 - 1.25 mg/dL [facility] GFR/1.73 sq M.predicted (S/P/Bld) [Vol rate/Area] 31.9 mL/min Low - PINF [facility] Comment on above: Calculation based on the Chronic Kidney Disease Epidemiology Collaboration (CKD-EPI) equation refit without adjustment for race Glucose [Mass/Vol] 108 mg/dL 82 - 115 mg/dL [facility] Interpretation and review of laboratory results Abnormal [facility] Potassium [Moles/Vol] 4.1 mmol/L 3.5 - 5.1 mmol/L [facility] Comment on above: Plasma potassium traci ues may be up to 0.5 mmol/L lower than serum values. Sodium [Moles/Vol] 137 mmol/L 136 - 145 mmol/L [facility] Urea nitrogen [Mass/Vol] 51 mg/dL High 9 - 23 mg/d L [facility] Blood type and Crossmatch pa valente (Bld)on 06-21-2025 ABO group Nom (Bld) A [facility] Blood group antibody screen GEL Ql Negative [facility] D Ag Ql (RBC) Negative [facility] CBC W Auto Differential pane l (Bld)Ordered By: Sallie Powell on 06-21-2025 Erythrocyte distribution width (RBC) [Ratio] 16.7 % High 11.5 - 15.0 % [facility] Hematocrit (Bld) [Volume fraction] 23.3 % Low 40.0 - 52.0 % [facility] Hemoglobin (Bld) [Mass/Vol] 7.4 g/dL Low 13.0 - 18.0 g/dL [facility] Interpretation and review of laboratory results Abnormal [facility] MCH (RBC) [Entitic mass] 29 pg 26. 0 - 34.0 pg [facility] MCHC (RBC) [Mass/Vol] 31.8 % 30.5 - 36.0 % [facility] MCV (RBC) [Entitic vol] 91.4 fL 77.0 - 99.0 fL [facility] Platelet mean volume (Bld) [Entitic vol] 8.5 fL Low 9.0 - 12.7 fL [facility] Platelets (Bld) [#/Vol] 513 10*3/uL High 140 - 440 10*3/uL [facility] RBC (Bld) [#/Vol] 2.55 10*6/uL Low 4.40 - 5.9 0 10*6/uL [facility] WBC (Bld) [#/Vol] 16.8 10*3/uL High 3.6 - 10.7 10*3/uL [facility] CBC WITH AUTO DIFFERENTIALon 06-21-2025 Erythrocyte distribution width (RBC) [Ratio] 16.7 % High 11.5-15.0 [facility] Comment on above: Performed By: #### L [id number], [id number] ####Security Control Room Officer: UNA ARCE ([id number])[facility] [place] ([facility])[address] Hematocrit (Bld) [Volume fraction] 23.3 % Low 40.0-52.0 [facility] Comment on above: Performed By: #### L [id number], [id number] ####Security Control Room Officer: UNA ARCE ([id number])[facility] ([facility])[address] Hemoglobin (Bld) [Mass/Vol] 7.4 g/dL Low 13.0-18.0 [facility] Comment on above: Performed By: #### L [id number], [id number] ####Security Control Room Officer: UNA ARCE ([id number])[facility] [place] ([facility])[address] MCH (RBC) [Entitic mass] 29.0 pg Normal 26.0-34.0 [facility] Comment on above: Performed By: #### L [id number], [id number] ####Security Control Room Officer: UNA ARCE ([id number])[facility] ([facility])[address] MCHC 31.8 % Normal 30.5-36.0 [facility] Comment on above: Performed By: #### L [id number], [id number] ####Security Control Room Officer: UNA ARCE ([id number])[facility] ([facility])[address] MCV (RBC) [Entitic vol] 91.4 fL Normal 77.0-99.0 [facility] Comment on above: Performed By: #### L [id number], [id number] ####Security Control Room Officer: UNA ARCE ([id number])[facility] (SBHLAB)[address] Platelet mean volume (Bld) [Entitic vol] 8.5 fL Low 9.0-12.7 [facility] Comment on above: Performed By: #### L [id number], [id number] ####Security Control Room Officer: UNA ARCE ([id number])[facility] (SB[facility])[address] Platelets (Bld) [#/Vol] 513 10*3/uL High 140-440 [facility] Comment on above: Performed By: #### L [id number], [id number] ####Security Control Room Officer: UNA ARCE ([id number])[facility] (SBHLAB)[address] RBC (Bld) [#/Vol] 2.55 10*6/uL Low 4.40-5.90 [facility] Comment on above: Performed By: #### L [id number], [id number] ####Security Control Room Officer: UNA ARCE ([id number])[facility] ([facility])[address] WBC (Bld) [#/Vol] 16.8 10*3/uL High 3.6-10.7 [facility] Comment on above: Performed By: #### L [id number], [id number] ####Security Control Room Officer: UNA ARCE ([id number])[facility] ([facility])[address] CBC-Complete Blood Cnt No Di ffon 06-21-2025 Erythrocyte distribution width (RBC) [Ratio] 16.8 % High 11.6-14.6 [facility] Comment on above: Order Comment: 212.1 Performed By: #### L 100.0500, L500.2500 #### [facility] [address] [place], [address] Hematocrit (Bld) [Volume fraction] 21.5 % Low 40-54 [facility] Comment on above: Order Comment: 212.1 Performed By: #### L 100.0500, L500.2500 #### [facility] [address] [place], [address] Hemoglobin (Bld) [Mass/Vol] 6.9 g/dL Low 13.0-16.5 [facility] Comment on above: Order Comment: 212.1 Performed By: #### L 100.0500, L500.2500 #### [facility] [address] [place], [address] MCH (RBC) [Entitic mass] 28.8 pg Normal 27.0-32.0 [facility] Comment on above: Order Comment: 212.1 Performed By: #### L 100.0500, L500.2500 #### [facility] [address] [place], [address] MCHC (RBC) [Mass/Vol] 32.1 g/dL Normal 32-36 [facility] Comment on above: Order Comment: 212.1 Performed By: #### L 100.0500, L500.2500 #### [facility] [address] [place], [address] MCV (RBC) [Entitic vol] 89.6 fL Normal 80-94 [facility] Comment on above: Order Comment: 212.1 Performed By: #### L 100.0500, L500.2500 #### [facility] [address] [place], [address] Platelet mean volume (Bld) [Entitic vol] 8.7 fL Normal 6.2-12.0 [facility] Comment on above: Order Comment: 212.1 Performed By: #### L 100.0500, L500.2500 #### [facility] [address] [place], [address] Platelets (Bld) [#/Vol] 457 10*3/uL High 150-450 [facility] Comment on above: Order Comment: 212.1 Performed By: #### L 100.0500, L500.2500 #### [facility] [address] [place], [address] RBC (Bld) [#/Vol] 2.40 10*6/uL Low 4.6-6.2 [facility] Comment on above: Order Comment: 212.1 Performed By: #### L 100.0500, L500.2500 #### [facility] [address] [place], [address] RDW SD 55.8 fl High 35.1-43.9 [facility] Comment on above: Order Comment: 212.1 Performed By: #### L 100.0500, L500.2500 #### [facility] [address] [place], [address] WBC (Bld) [#/Vol] 14.3 10*3/uL High 4.4-11.0 [facility] Comment on above: Order Comment: 212.1 Performed By: #### L 100.0500, L500.2500 #### [facility] [address] [place], [address] ECG 12-LEADon 06-21-2025 ECG 12-LEAD IMPRESSION: Sinus rhythm Atrial premature complexes Left anterior fascicular block Similar to prior on 04/13/25 Electronically Signed On 06-21-2025 23:12:12 EDT by Sagar Gilliam [facility] ED Nursing Noteon 06-21-2025 ED Nursing Note This RN at bedside for first 15 minutes of blood transfusion. Pt tolerating transfusion. VS updated in system. [facility] ED Nursing Note Patient [facility] following bloodwork that showed low hemoglobin. No overt signs of bleeding on arrival. Patient A&O4. Patient does endorse previous blood transfusions. Normal [facility] ED Provider Noteon ED Provider Note Normal [facility] Laboratory - Hematology and Cell countson 06-21-2025 Eosinophils (Bld) [#/Vol] 0.3 10*3/uL 0.0 - 0.5 10*3/uL [facility] Eosinophils/100 WBC (Bld) 2 % 0 - 6 % [facility] Giant platelets LM Ql (Bld) Rare Abnormal (none) [facility] Hypochromia Ql (Bld) Slight Abnormal (none) [facility] Lymphocytes (Bld) [#/Vol] 4 10*3/uL 1.0 - 4.3 10*3/uL [facility] Lymphocytes/100 WBC (Bld) 24 % 15 - 45 % [facility] Monocytes (Bld) [#/Vol] 1.2 10*3/uL High 0.0 - 0.9 10*3/uL [facility] Monocytes/100 WBC (Bld) 7 % 5 - 13 % [facility] Neutrophils (Bld) [#/Vol] 11.3 10*3/uL High 1.8 - 7.5 10*3/uL [facility] Ovalocytes LM Ql (Bld) Rare Abnormal (none) [facility] RBC morphology finding Nom (Bld) abnormal [facility] Segmented neutrophils/100 WBC (Bld) 67 % 38 - 82 % [facility] MANUAL DIFFERENTIAL (CELLAVI BANDAR)on 06-21-2025 BAND NEUTROPHILS TOTAL PER COUNTED LEUKOCYTES BY MANUAL COUNT Normal [facility] Comment on above: Performed By: #### L [id number], [id number] ####Security Control Room Officer: UNA ARCE ([id number])[facility] ESC[facility] ([facility])[address] [place] [address] BASOPHILS TOTAL PER COUNTED LEUKOCYTES BY MANUAL COUNT Normal [facility] Comment on above: Performed By: #### L [id number], [id number] ####Security Control Room Officer: UNA ARCE ([phone])[facility] ESCOTO ([facility])[address] [place] [address] [place] BLASTS TOTAL PER COUNTED LEUKOCYTES BY MANUAL COUNT Normal [facility] Comment on above: Performed By: #### L [id number], [id number] ####Security Control Room Officer: UNA ARCE ([phone])[facility] ([facility])[address] [place] [address] [place] EOSINOPHILS (10*3/UL) IN BLOOD-CELLAVISION 0.3 10*3/uL Normal 0.0-0.5 [facility] Comment on above: Performed By: #### L [id number], [id number] ####Security Control Room Officer: UNA ARCE ([phone])[facility] ([facility])[address] [place] [address] [place] EOSINOPHILS TOTAL PER COUNTED LEUKOCYTES BY MANUAL COUNT 2 High 0-1 [facility] Comment on above: Performed By: #### L [id number], [id number] ####Security Control Room Officer: UNA ARCE ([id number])[facility] ([facility])[address] [place] [address] [place] EOSINOPHILS/100 LEUKOCYTES IN BLOOD-CELLAVISION 2 % Normal 0-6 [facility] Comment on above: Performed By: #### L [id number], [id number] ####Security Control Room Officer: UNA ARCE ([id number])[facility] ([facility])[address] [place] [address] [place] HYPOCHROMIA (PRESENCE) IN BLOOD BY LIGHT MICROSCOPY Slight Abnormal (none) [facility] Comment on above: Performed By: #### L [id number], [id number] ####Security Control Room Officer: UNA ARCE ([id number])[facility] ([facility])[address] [place] [address] [place] LYMPHOCYTES (10*3/UL) IN BLOOD-CELLAVISION 4.0 10*3/uL Normal 1.0-4.3 [facility] Comment on above: Performed By: #### L [id number], [id number] ####Security Control Room Officer: UNA [phone])[facility] ([facility])[address] [place] [address] [place] LYMPHOCYTES TOTAL PER COUNTED LEUKOCYTES BY MANUAL COUNT 24 Normal [facility] Comment on above: Performed By: #### L [id number], [id number] ####Security Control Room Officer: UNA ARCE ([id number])[facility] ([facility])[address] [place] [address] [place] LYMPHOCYTES/100 LEUKOCYTES IN BLOOD-CELLAVISION 24 % Normal 15-45 [facility] Comment on above: Performed By: #### L [id number], [id number] ####Security Control Room Officer: UNA ARCE ([id number])[facility] [place] ([facility])[address] [place] [address] [place] METAMYELOCYTES TOTAL PER COUNTED LEUKOCYTES BY MANUAL COUNT Normal [facility] Comment on above: Performed By: #### L [id number], [id number] ####Security Control Room Officer: UNA ARCE ([phone])[facility] [place] ([facility])[address] [place] [address] [place] MONOCYTES (10*3/UL) IN BLOOD-CELLAVISION 1.2 10*3/uL High 0.0-0.9 [facility] Comment on above: Performed By: #### L [id number], [id number] ####Security Control Room Officer: UNA ARCE ([id number])[facility] [place] ([facility])[address] [place] [address] [place] MONOCYTES TOTAL PER COUNTED LEUKOCYTES BY MANUAL COUNT 7 Normal [facility] Comment on above: Performed By: #### L [id number], [id number] ####Security Control Room Officer: UNA ARCE ([id number])[facility] [place] ([facility])[address] [place] [address] [place] MONOCYTES/100 LEUKOCYTES IN BLOOD-LUCIANA 7 % Normal 5-13 [facility] Comment on above: Performed By: #### L [id number], [id number] ####Security Control Room Officer: UNA ARCE ([id number])[facility] ([facility])[address] [place] [address] [place] MYELOCYTES COUNTED BY MANUAL COUNT Normal [facility] Comment on above: Performed By: #### L [id number], [id number] ####Security Control Room Officer: UNA STAUFFERMELANIE ([id number])[facility] ([facility])[address] [place] [address] [place] NEUTROPHILS TOTAL PER COUNTED LEUKOCYTES BY MANUAL COUNT 67 Normal [facility] Comment on above: Performed By: #### L [id number], [id number] ####Security Control Room Officer: UNA BERMUDEZPEDRO ([id number])[facility] [place] ([facility])[address] [place] [address] [place] OVALOCYTES PRESENCE IN BLOOD BY LIGHT MICROSCOPY Rare Abnormal (none) [facility] Comment on above: Performed By: #### L [id number], [id number] ####Security Control Room Officer: UNA ARCE ([id number])[facility] [place] ([facility])[address] [place] [address] [place] PLATELETS GIANT PRESENCE IN BLOOD BY LIGHT MICROSCOPY Rare Abnormal (none) [facility] Comment on above: Performed By: #### L [id number], [id number] ####Security Control Room Officer: UNA ARCE ([phone])[facility] [place] ([facility])[address] [place] [address] [place] PROMYELOCYTES TOTAL PER COUNTED LEUKOCYTES BY MANUAL COUNT Normal [facility] Comment on above: Performed By: #### L [id number], [id number] ####Security Control Room Officer: UNA ARCE ([id number])[facility] [place] ([facility])[address] [place] [address] [place] RBC MORPHOLOGY IN BLOOD abnormal Normal [facility] Comment on above: Performed By: #### L [id number], [id number] ####Security Control Room Officer: UNA ARCE ([id number])[facility] [place] ([facility])[address] [place] [address] [place] SEGMENTED NEUTROPHILS (10*3/UL) IN BLOOD-CELLAVISION 11.3 10*3/uL High 1.8-7.5 [facility] Comment on above: Performed By: #### L [id number], [id number] ####Security Control Room Officer: UNA STAUFFERMELANIE ([id number])[facility] ([facility])[address] SEGMENTED NEUTROPHILS/100 LEUKOCYTES-CE 67 % Normal 38-82 [facility] Comment on above: Performed By: #### L [id number], [id number] ####Security Control Room Officer: UNA BERMUDEZPEDRO ([phone])[facility] [place] ([facility])[address] UNCLASSIFIED CELLS TOTAL PER COUNTED LEUKOCYTES BY MANUAL COUNT [facility] Comment on above: Performed By: #### L [id number], [id number] ####Security Control Room Officer: UNA STAUFFERMELANIE ([phone])[facility] [place] ([facility])[address] VARIANT LYMPHOCYTES TOTAL PER COUNTED LEUKOCYTES BY MANUAL COUNT [facility] Comment on above: Performed By: #### L [id number], [id number] ####Security Control Room Officer: UNA BERMUDEZPEDRO ([id number])[facility] [place] ([facility])[address] No Panel Informationon 06-21 P [place] 17 degrees [facility] UT Interval 189 ms [facility] QRS [place] -50 degrees [facility] QRSD Interval 116 ms [facility] QT Inter[facility] 434 ms [facility] QTC Interval 436 ms [facility] T Wave [place] 37 degrees [facility] Sinus rhythm Atrial premature complexes Left anterior fascicular block Similar to prior on 04/13/25 Electronically Signed On 06-21-2025 23:12:12 EDT by Sagar Posey, - 06/21/2025 IMPRESSION: Sinus rhythm Atrial premature complexes Left anterior fascicular block Similar to prior on 04/13/25 Electronically Signed On 06-21-2025 23:12:12 EDT by Sagar Gilliam [facility] Blood Expiration Date [id number] [facility] Crossmatch interpretation COMP [facility] Dispense Status Transfused [facility] lt Product Blood Type 600 [facility] PRODUCT CODE [id number] [facility] Unit ABO A [facility] Unit Number [id number] [facility] RH Negative [facility] Unit Volume 300 mL [facility] Atypical Lymphocytes Manual [facility] Bands Manual [facility] Basophils Manual [facility] alth Blasts Manual [facility]alt [facility] Eosinophils Manual 2 High 0 - 1 [facility] Interpretation and review of laboratory results Abnormal [facility] Lymphocytes Manual 24 [facility] Metamyelocytes Manual [facility] Monocytes Manual 7 [facility] alth Myelocytes Manual [facility] ealt Neutrophils Manual 67 [facility] Promyelocytes Manual [facility] Unclassified Cells, Manual [facility] Vital signson 06-21-2025 Heart rate 63 /min bpm [facility] 36on 06-18-2025 36 Noted; thank you. Normal [facility] 36on 06-17-2025 36 Normal [facility] 36 Normal [facility] BASIC METABOLIC PANELon Anion gap [Moles/Vol] 13 mmol/L Normal 3-13 [facility] Comment on above: Performed By: #### L [id number] ####Security Control Room Officer: ANAHY AVILA ([id number])[facility] JAN [place] ([facility]RL[facility])[address] [place] [address] [place] Calcium [Mass/Vol] 9.2 mg/dL Normal 8.8-10.0 [facility] Comment on above: Performed By: #### L [id number] ####Security Control Room Officer: ANAHY AVILA ([id number])[facility] [place] [place] ([facility])[address] [place] [address] [place] Chloride [Moles/Vol] 98 mmol/L Normal 98-107 [facility] Comment on above: Performed By: #### L [id number] ####Security Control Room Officer: ANAHY AVILA ([id number])[facility] JAN [place] (SWRL[facility])[address] [place] [address] [place] CO2 [Moles/Vol] 29 mmol/L Normal 23-31 [facility] Comment on above: Performed By: #### L [id number] ####Security Control Room Officer: ANAHY AVILA ([id number])[facility]ENTERAngel MONTOYA [place] ([facility])[address] [place] [address] [place] Creatinine [Mass/Vol] 2.05 mg/dL High 0.72-1.25 [facility] Comment on above: Performed By: #### L [id number] ####Security Control Room Officer: ANAHY AVILA ([id number])[facility] MONTOYA [place] ([facility])[address] [place] [address] [place] GLOMERULAR FILTRATION RATE ML/MIN/1.73 SQ M.PREDICTED 30.4 mL/min/1.73m*2 Low >60.0 [facility] Comment on above: Result Comment: Calc ulation based on the Chronic Kidney Disease Epidemiology Collaboration (CKD-EPI) equation refit without adjustment for race Performed By: #### L [id number] ####Security Control Room Officer: ANAHY AVILA ([id number])[facility] [place]TOYA [place] ([facility])[address] [place] [address] [place] Glucose [Mass/Vol] 109 mg/dL Normal 82-115 [facility] Comment on above: Performed By: #### L [id number] ####Security Control Room Officer: ANAHY AVILA ([id number])[facility]Angel MONTOYA [place] ([facility])[address] [place] [address] [place] Potassium [Moles/Vol] 4.3 mmol/L Normal 3.5-5.1 [facility] Comment on above: Result Comment: [facility] potassium values may be up to 0.5 mmol/L lower than serum values. Performed By: #### L [id number] ####Security Control Room Officer: ANAHY AVILA ([id number])[facility]Angel MONTOYA [place] ([facility])[address] [place] [address] [place] Sodium [Moles/Vol] 140 mmol/L Normal 136-145 [facility] Comment on above: Performed By: #### L [id number] ####Security Control Room Officer: ANAHY AVILA ([id number])[facility] SID (SWRLAB)[address] Urea nitrogen [Mass/Vol] 54 mg/dL High 9-23 [facility] Comment on above: Performed By: #### L [id number] ####Security Control Room Officer: ANAHY AVILA ([id number])[facility] SID (SWRLAB)[address] Basic metabolic 1998 panelon 06-17-2025 Anion gap [Moles/Vol] 13 mmol/L 3 - 13 mmol/L [facility] Calcium [Mass/Vol] 9.2 mg/dL 8.8 - 10. 0 mg/dL [facility] Chloride [Moles/Vol] 98 mmol/L 98 - 10 7 mmol/L [facility] CO2 [Moles/Vol] 29 mmol/L 23 - 31 mmol/L [facility] Creatinine [Mass/Vol] 2.05 mg/dL High 0.72 - 1.25 mg/dL [facility] GFR/1.73 sq M.predicted (S/P/Bld) [Vol rate/Area] 30.4 mL/min Low - PINF [facility] Comment on above: Calculation based on the Chronic Kidney Disease Epidemiology Collaboration (CKD-EPI) equation refit without adjustment for race Glucose [Mass/Vol] 109 mg/dL 82 - 115 mg/dL [facility] Interpretation and review of laboratory results Abnormal [facility] Potassium [Moles/Vol] 4.3 mmol/L 3.5 - 5.1 mmol/L [facility] Comment on above: Plasma potassium traci ues may be up to 0.5 mmol/L lower than serum values. Sodium [Moles/Vol] 140 mmol/L 136 - 145 mmol/L [facility] Urea nitrogen [Mass/Vol] 54 mg/dL High 9 - 23 mg/d L [facility] CBC W Auto Differential pane l (Bld)Ordered By: Jessica Maldonado on 06-17-2025 Basophils (Bld) [#/Vol] 0.1 10*3/uL 0.0 - 0.2 10*3/uL [facility] Basophils/100 WBC (Bld) 0.7 % 0.0 - 2.0 % [facility] Eosinophils (Bld) [#/Vol] 0.4 10*3/uL 0.0 - 0.5 10*3/uL [facility] Eosinophils/100 WBC (Bld) 2.2 % 0.0 - 6.0 % [facility] Erythrocyte distribution width (RBC) [Ratio] 17.2 % High 11.5 - 15.0 % [facility] Hematocrit (Bld) [Volume fraction] 25.7 % Low 40.0 - 52.0 % [facility] Hemoglobin (Bld) [Mass/Vol] 8.2 g/dL Low 13.0 - 18.0 g/dL [facility] Immature granulocytes (Bld) [#/Vol] 0.2 10*3/uL High NINF - 0.1 10*3/uL [facility] Immature granulocytes/100 WBC (Bld) 1 % 0.0 - 2.0 % [facility] Interpretation and review of laboratory results Abnormal [facility] Lymphocytes (Bld) [#/Vol] 2.9 10*3/uL 1.0 - 4.3 10*3/uL [facility] Lymphocytes/100 WBC (Bld) 17.2 % 15.0 - 45.0 % [facility] MCH (RBC) [Entitic mass] 29.1 pg 26. 0 - 34.0 pg [facility] MCHC (RBC) [Mass/Vol] 31.9 % 30.5 - 36.0 % [facility] MCV (RBC) [Entitic vol] 91.1 fL 77.0 - 99.0 fL [facility] Monocytes (Bld) [#/Vol] 1.5 10*3/uL High 0.0 - 0.9 10*3/uL [facility] Monocytes/100 WBC (Bld) 9.1 % 5.0 - 13.0 % [facility] Neutrophils (Bld) [#/Vol] 11.5 10*3/uL High 1.8 - 7.5 10*3/uL [facility] Neutrophils/100 WBC (Bld) 69.8 % 38.0 - 82.0 % [facility] Nucleated RBC/100 WBC (Bld) [Ratio] 0 % [facility] Platelet mean volume (Bld) [Entitic vol] 8.7 fL Low 9.0 - 12.7 fL [facility] Comment on above: MPV is a calculated measurement using platelet volume ratio Platelets (Bld) [#/Vol] 517 10*3/uL High 140 - 440 10*3/uL [facility] RBC (Bld) [#/Vol] 2.82 10*6/uL Low 4.40 - 5.9 0 10*6/uL [facility] WBC (Bld) [#/Vol] 16.5 10*3/uL High 3.6 - 10.7 10*3/uL [facility] Moderate Anisocytosi s Slight Hypochromia [facility] CBC WITH AUTO DIFFERENTIALon 06-17-2025 Basophils (Bld) [#/Vol] 0.1 10*3/uL Normal 0.0-0.2 [facility] Comment on above: Performed By: #### L [id number] ####Security Control Room Officer: ANAHY AVILA ([id number])[facility] [place] [place] (SWRLAB)[address] [place] [address] [place] Basophils/100 WBC (Bld) 0.7 % Normal 0.0-2.0 [facility] Comment on above: Performed By: #### L [id number] ####Security Control Room Officer: ANAHY AVILA ([id number])[facility] [place] [place] (SWRL[facility])[address] [place] [address] [place] Eosinophils (Bld) [#/Vol] 0.4 10*3/uL Normal 0.0-0.5 [facility] Comment on above: Performed By: #### L [id number] ####Security Control Room Officer: ANAHY AVILA ([id number])[facility] [place] [place] (SWRLAB)[address] [place] [address] [place] Eosinophils/100 WBC (Bld) 2.2 % Normal 0.0-6.0 [facility] Comment on above: Performed By: #### L [id number] ####Security Control Room Officer: ANAHY AVILA ([id number])[facility] [place] [place] (SWRLAB)[address] [place] [address] Erythrocyte distribution width (RBC) [Ratio] 17.2 % High 11.5-15.0 [facility] Comment on above: Performed By: #### L [id number] ####Security Control Room Officer: ANAHY AVILA ([id number])LYNETTE MONTOYA [place] (SWRLAB)[address] [place] [address] Hematocrit (Bld) [Volume fraction] 25.7 % Low 40.0-52.0 [facility] Comment on above: Performed By: #### L [id number] ####Security Control Room Officer: ANAHY AVILA ([id number])[facility] MONTOYA [place] (SWRLAB)[address] [place] [address] Hemoglobin (Bld) [Mass/Vol] 8.2 g/dL Low 13.0-18.0 [facility] Comment on above: Performed By: #### L [id number] ####Security Control Room Officer: ANAHY AVILA ([id number])[facility] [place] (SWRLAB)[address] [place] [address] IMMATURE GRANS % 1.0 % Normal 0.0-2.0 [facility] Comment on above: Performed By: #### L [id number] ####Security Control Room Officer: ANAHY AVILA ([phone])LYNETTE MONTOYA [place] (SWRLAB)[address] [place] [address] IMMATURE GRANS ABSOLUTE 0.2 10*3/uL High <0.1 [facility] Comment on above: Result Comment: ORDE R COMMENTS:Moderate AnisocytosisSlight Hypochromia Performed By: #### L [id number] ####Security Control Room Officer: ANAHY AVILA ([phone])[facility] [place] (SWRLAB)[address] [place] [address] Lymphocytes (Bld) [#/Vol] 2.9 10*3/uL Normal 1.0-4.3 [facility] Comment on above: Performed By: #### L [id number] ####Security Control Room Officer: ANAHY AVILA ([id number])LYNETTE MONTOYA [place] (SWRLAB)[address] [place] [address] [place] Lymphocytes/100 WBC (Bld) 17.2 % Normal 15.0-45.0 [facility] Comment on above: Performed By: #### L [id number] ####Security Control Room Officer: ANAHY AVILA ([id number])[facility] [place]TOYA [place] (SWRLAB)[address] [place] [address] MCH (RBC) [Entitic mass] 29.1 pg Normal 26.0-34.0 [facility] Comment on above: Performed By: #### L [id number] ####Security Control Room Officer: ANAHY AVILA ([id number])[facility] [place]TOYA [place] (SWRLAB)[address] [place] [address] MCHC 31.9 % Normal 30.5-36.0 [facility] Comment on above: Performed By: #### L [id number] ####Security Control Room Officer: ANAHY AVILA ([id number])[facility] [place]TO[place] (SWRLAB)[address] [place] [address] [place] MCV (RBC) [Entitic vol] 91.1 fL Normal 77.0-99.0 [facility] Comment on above: Performed By: #### L [id number] ####Security Control Room Officer: ANAHY AVILA ([id number])[facility] [place] (SWRLAB)[address] [place] [address] [place] Monocytes (Bld) [#/Vol] 1.5 10*3/uL High 0.0-0.9 [facility] Comment on above: Performed By: #### L [id number] ####Security Control Room Officer: ANAHY AVILA ([phone])LYNETTE MONTOYA [place] (SWRLAB)[address] [place] [address] [place] Monocytes/100 WBC (Bld) 9.1 % Normal 5.0-13.0 [facility] Comment on above: Performed By: #### L [id number] ####Security Control Room Officer: ANAHY AVILA ([id number])LYNETTE MONTOYA [place] (SWRLAB)[address] [place] [address] NEUTROPHILS ABSOLUTE 11.5 10*3/uL High 1.8-7.5 [facility] Comment on above: Performed By: #### L [id number] ####Security Control Room Officer: ANAHY AVILA ([id number])[facility]ENTER[facility] MONTOYA [place] (SWRLAB)[address] [place] [address] Neutrophils/100 WBC (Bld) 69.8 % Normal 38.0-82.0 [facility] Comment on above: Performed By: #### L [id number] ####Security Control Room Officer: ANAHY AVILA ([id number])[facility]ENTERAngel [place]TOYA [place] (SWRLAB)[address] [place] [address] NRBC 0.0 /100 WBCs Normal 0.0-2.0 [facility] Comment on above: Performed By: #### L [id number] ####Security Control Room Officer: ANAHY AVILA ([id number])[facility] [place] (SWRLAB)[address] [place] [address] Platelet mean volume (Bld) [Entitic vol] 8.7 fL Low 9.0-12.7 [facility] Comment on above: Result Comment: MPV is a calculated measurement using platelet volume ratio Performed By: #### L [id number] ####Security Control Room Officer: ANAHY AVILA ([id number])[facility] [place]TO[place] (SWRLAB)[address] [place] [address] Platelets (Bld) [#/Vol] 517 10*3/uL High 140-440 [facility] Comment on above: Performed By: #### L [id number] ####Security Control Room Officer: ANAHY AVILA ([id number])[facility]Angel [place] (SWRLAB)[address] [place] [address] RBC (Bld) [#/Vol] 2.82 10*6/uL Low 4.40-5.90 [facility] Comment on above: Performed By: #### L [id number] ####Security Control Room Officer: ANAHY AVILA ([phone])[facility] [place] (SWRLAB)[address] WBC (Bld) [#/Vol] 16.5 10*3/uL High 3.6-10.7 [facility] Comment on above: Performed By: #### L [id number] ####Security Control Room Officer: ANAHY AVILA ([id number])[facility] CENTERAgnel CAPULIN R[place] (SWRLAB)[address] Progress Noteon 06-17-2025 Progress [facility] Progress [facility] Progress Noteon 06-02-2025 Progress Note Normal [facility] Progress Noteon 05-19-2025 Progress Note Normal [facility] Progress Noteon 05-11-2025 Progress Note Normal [facility] Progress Noteon 05-06-2025 Progress Note Normal [facility] Progress Noteon 05-04-2025 Progress Note [facility] Progress Noteon 05-03-2025 Progress Note Normal [facility] Progress Note CT abdomen with mura l thickening involving the cecum and terminal ileum concern for neoplasm versus inflammation. Seen by GI with plan for EGD and colonoscopy once stable. -GI follow-up Normal [facility] Progress Note Noted to have irregular heart rhythm during hospitalization and multiple EKGs show sinus rhythm with frequent PACs. -Continue Toprol 25 mg p.o. daily Normal [facility] Progress Note Normal [facility] Progress Note Creatinine 1.46 on admission. Peak creatinine 1.78. Most recent creatinine 1.8 per labs 04/26/2025 - Continue to monitor - may have to accept a higher creatinine to keep him out of HF Normal [facility] Progress Note Bedside thoracentesi s 04/09/2025 with 1 L removed from the left and 600 mL removed from the right. Repeat left thoracentesis 04/14/2025 with 600 mL removed. 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 NO angina. - no ASA 2/2 anemia - continue Toprol 25 mg po daily - continue atorvastatin 20 mg po daily - not a candidate or invasive workup due to anemia, advanced age and frailty Normal [facility] Progress Note Normal [facility] Progress Noteon 04-27-2025 Progress Note Normal [facility] Progress Noteon 04-20-2025 Progress Note Normal [facility] Progress Noteon 04-19-2025 Progress Note Normal [facility] [id number] 04-18-2025 [id number] Normal [facility] [id number] 04-17-2025 [id number] Normal [facility] [id number] Long Term/SNF - [facility] - [facility] Member [address] [place] [address] [phone] [id number] Patient/Family Choice Normal [facility] [id number] Normal [facility] CBC W Auto Differential pane l (Bld)on 04-17-2025 Erythrocyte distribution width (RBC) [Ratio] 25.7 % High 11.5 - 15.0 % [facility] Hematocrit (Bld) [Volume fraction] 27.9 % Low 40.0 - 52.0 % [facility] Hemoglobin (Bld) [Mass/Vol] 7.9 g/dL Low 13.0 - 18.0 g/dL [facility] MCH (RBC) [Entitic mass] 23.8 pg Low 26. 0 - 34.0 pg [facility] MCHC (RBC) [Mass/Vol] 28.3 % Low 30.5 - 36.0 % [facility] MCV (RBC) [Entitic vol] 84 fL 77.0 - 99.0 fL [facility] Platelet mean volume (Bld) [Entitic vol] 9 fL 9.0 - 12.7 fL [facility] Platelets (Bld) [#/Vol] 419 10*3/uL 140 - 440 10*3/uL [facility] RBC (Bld) [#/Vol] 3.32 10*6/uL Low 4.40 - 5.9 0 10*6/uL [facility] WBC (Bld) [#/Vol] 12 10*3/uL High 3.6 - 10.7 10*3/uL [facility] CBC WITH AUTO DIFFERENTIALon 04-17-2025 Erythrocyte distribution width (RBC) [Ratio] 25.7 % High 11.5-15.0 [facility] Comment on above: Performed By: #### L [id number], [id number] ####Security Control Room Officer: UNA ARCE ([id number])[facility] (SBHLAB)[address] Hematocrit (Bld) [Volume fraction] 27.9 % Low 40.0-52.0 [facility] Comment on above: Performed By: #### L [id number], [id number] ####Security Control Room Officer: UNA ARCE ([id number])[facility] (SBHLAB)[address] [place] [address] Hemoglobin (Bld) [Mass/Vol] 7.9 g/dL Low 13.0-18.0 [facility] Comment on above: Performed By: #### Gilbert [id number], [id number] ####Security Control Room Officer: UNA ARCE ([id number])[facility] (SBHLAB)[address] [place] [address] MCH (RBC) [Entitic mass] 23.8 pg Low 26.0-34.0 [facility] Comment on above: Performed By: #### L [id number], [id number] ####Security Control Room Officer: UNA ARCE ([id number])[facility] (SBHLAB)[address] MCHC 28.3 % Low 30.5-36.0 [facility] Comment on above: Performed By: #### L [id number], [id number] ####Security Control Room Officer: UNA ARCE ([id number])[facility] (SBHLAB)[address] MCV (RBC) [Entitic vol] 84.0 fL Normal 77.0-99.0 [facility] Comment on above: Performed By: #### L [id number], [id number] ####Security Control Room Officer: UNA ARCE ([id number])[facility] (SBHLAB)[address] Platelet mean volume (Bld) [Entitic vol] 9.0 fL Normal 9.0-12.7 [facility] Comment on above: Performed By: #### L [id number], [id number] ####Security Control Room Officer: UNA ARCE ([id number])[facility] (SBHLAB)[address] Platelets (Bld) [#/Vol] 419 10*3/uL Normal 140-440 [facility] Comment on above: Performed By: #### L [id number], [id number] ####Security Control Room Officer: UNA ARCE ([id number])[facility] (SBHLAB)[address] [place] [address] RBC (Bld) [#/Vol] 3.32 10*6/uL Low 4.40-5.90 [facility] Comment on above: Performed By: #### L [id number], [id number] ####Security Control Room Officer: UNA ARCE ([id number])[facility] [place] (SBHLAB)[address] [place] [address] WBC (Bld) [#/Vol] 12.0 10*3/uL High 3.6-10.7 [facility] Comment on above: Performed By: #### L [id number], [id number] ####Security Control Room Officer: UNA ARCE ([id number])[facility] (SB[facility])[address] COMPREHENSIVE METABOLIC PANE Anant 04-17-2025 Albumin [Mass/Vol] 2.1 g/dL Low 3.4-4.8 [facility] Comment on above: Performed By: #### L AB103, LAB17 ####Security Control Room Officer: UNA ARCE ([id number])[facility] (SBHLAB)[address] ALP [Catalytic activity/Vol] 49 U/L Normal 40-150 [facility] Comment on above: Performed By: #### L AB103, LAB17 ####Security Control Room Officer: UNA ARCE ([id number])[facility] [place] (SBHLAB)[address] [place] [address] [place] ALT [Catalytic activity/Vol] U/L Normal <40 [facility] Comment on above: Performed By: #### L AB103, LAB17 ####Security Control Room Officer: UNA ARCE ([id number])[facility] [place] (SBHLAB)[address] Anion gap [Moles/Vol] 10 mmol/L Normal 3-13 [facility] Comment on above: Performed By: #### L AB103, LAB17 ####Security Control Room Officer: UNA ARCE ([id number])[facility] [place] (SBHLAB)[address] AST [Catalytic activity/Vol] 22 U/L Normal <34 [facility] Comment on above: Performed By: #### L AB103, LAB17 ####Security Control Room Officer: UNA ARCE ([id number])[facility] [place] (SBHLAB)[address] [place] [address] [place] Bilirubin [Mass/Vol] 0.5 mg/dL Normal <1.2 [facility] Comment on above: Performed By: #### L AB103, LAB17 ####Security Control Room Officer: UNA ARCE ([id number])[facility] [place] (SBHLAB)[address] [place] [address] [place] Calcium [Mass/Vol] 8.4 mg/dL Low 8.8-10.0 [facility] Comment on above: Performed By: #### L AB103, LAB17 ####Security Control Room Officer: UNA ARCE ([phone])[facility]ASH[facility] (SBHLAB)[address] Chloride [Moles/Vol] 88 mmol/L Low 98-107 [facility] Comment on above: Performed By: #### L AB103, LAB17 ####Security Control Room Officer: UNA ARCE ([id number])[facility]Angel [facility] (SBHLAB)[address] CO2 [Moles/Vol] 40 mmol/L High 23-31 [facility] Comment on above: Performed By: #### L AB103, LAB17 ####Security Control Room Officer: UNA ARCE ([id number])[facility] (HLAB)[address] Creatinine [Mass/Vol] 1.67 mg/dL High 0.72-1.25 [facility] Comment on above: Performed By: #### L DERICK, LAB17 ####Security Control Room Officer: UNA ARCE ([id number])[facility] (HLAB)[address] GLOMERULAR FILTRATION RATE ML/MIN/1.73 SQ M.PREDICTED 38.9 mL/min/1.73m*2 Low >60.0 [facility] Comment on above: Result Comment: Calc ulation based on the Chronic Kidney Disease Epidemiology Collaboration (CKD-EPI) equation refit without adjustment for race Performed By: #### L 103, LAB17 ####Security Control Room Officer: UNA ARCE ([id number])[facility] (SBHLAB)[address] [place] [address] [place] Glucose [Mass/Vol] 94 mg/dL Normal 82-115 [facility] Comment on above: Performed By: #### L AB103, LAB17 ####Security Control Room Officer: UNA ARCE ([id number])[facility] (HLAB)[address] Potassium [Moles/Vol] 3.6 mmol/L Normal 3.5-5.1 [facility] Comment on above: Result Comment: Plas ma potassium values may be up to 0.5 mmol/L lower than serum values. Performed By: #### L AB103, LAB17 ####Security Control Room Officer: UNA ARCE ([id number])[facility] [place] (SBHLAB)[address] Protein [Mass/Vol] 5.8 g/dL Low 6.4-8.3 [facility] Comment on above: Performed By: #### L AB103, LAB17 ####Security Control Room Officer: UNA ARCE ([id number])[facility] [place] (SBHLAB)[address] Sodium [Moles/Vol] 138 mmol/L Normal 136-145 [facility] Comment on above: Performed By: #### L AB103, LAB17 ####Security Control Room Officer: UNA ARCE ([id number])[facility] (SBHLAB)[address] Urea nitrogen [Mass/Vol] 46 mg/dL High 9-23 [facility] Comment on above: Performed By: #### L AB103, LAB17 ####Security Control Room Officer: UNA ARCE ([id number])[facility] (SBHLAB)[address] Comprehensive metabolic 1998 panelon 04-17-2025 Albumin [Mass/Vol] 2.1 g/dL Low 3.4 - 4.8 g/dL [facility] ALP [Catalytic activity/Vol] 49 U/L 40 - 150 U/L [facility] ALT [Catalytic activity/Vol] U/L NINF - 40 U/L [facility] Anion gap [Moles/Vol] 10 mmol/L 3 - 13 mmol/L [facility] AST [Catalytic activity/Vol] 22 U/L NINF - 34 U/L [facility] Bilirubin [Mass/Vol] 0.5 mg/dL NINF - 1.2 mg/dL [facility] Calcium [Mass/Vol] 8.4 mg/dL Low 8.8 - 10. 0 mg/dL [facility] Chloride [Moles/Vol] 88 mmol/L Low 98 - 10 7 mmol/L [facility] CO2 [Moles/Vol] 40 mmol/L High 23 - 31 mmol/L [facility] Creatinine [Mass/Vol] 1.67 mg/dL High 0.72 - 1.25 mg/dL [facility] GFR/1.73 sq M.predicted (S/P/Bld) [Vol rate/Area] 38.9 mL/min Low - PINF [facility] Glucose [Mass/Vol] 94 mg/dL 82 - 115 mg/dL [facility] Interpretation and review of laboratory results Abnormal [facility] Potassium [Moles/Vol] 3.6 mmol/L 3.5 - 5.1 mmol/L [facility] Protein [Mass/Vol] 5.8 g/dL Low 6.4 - 8.3 g/dL [facility] Sodium [Moles/Vol] 138 mmol/L 136 - 145 mmol/L [facility] Urea nitrogen [Mass/Vol] 46 mg/dL High 9 - 23 mg/d L [facility] Laboratory - Chemistry and C hemistry - challengeon 04-17-2025 Magnesium [Mass/Vol] 1.8 mg/dL 1.6 - 2 .6 mg/dL [facility] Laboratory - Hematology and Cell countson 04-17-2025 Anisocytosis Ql (Bld) Slight Abnormal (none) [facility] Basophils (Bld) [#/Vol] 0.4 10*3/uL High 0.0 - 0.2 10*3/uL [facility] Basophils/100 WBC (Bld) 3 % High 0 - 2 % [facility] Eosinophils (Bld) [#/Vol] 0.2 10*3/uL 0.0 - 0.5 10*3/uL [facility] Eosinophils/100 WBC (Bld) 2 % 0 - 6 % [facility] Hypochromia Ql (Bld) Moderate Abnormal (none) [facility] Lymphocytes (Bld) [#/Vol] 1.3 10*3/uL 1.0 - 4.3 10*3/uL [facility] Lymphocytes/100 WBC (Bld) 11 % Low 15 - 45 % [facility] Monocytes (Bld) [#/Vol] 0.8 10*3/uL 0.0 - 0.9 10*3/uL [facility] Monocytes/100 WBC (Bld) 7 % 5 - 13 % [facility] Neutrophils (Bld) [#/Vol] 9.2 10*3/uL High 1.8 - 7.5 10*3/uL [facility] Poikilocytosis LM Ql (Bld) Moderate Abnormal (none) [facility] Polychromasia LM Ql (Bld) Slight Abnormal (none) [facility] RBC morphology finding Nom (Bld) abnormal [facility] Segmented neutrophils/100 WBC (Bld) 77 % 38 - 82 % [facility] Stomatocytes LM Ql (Bld) Moderate Abnormal (none) [facility] Target cells LM Ql (Bld) Slight Abnormal (none) [facility] MAGNESIUMon 04-17-2025 Magnesium [Mass/Vol] 1.8 mg/dL Normal 1.6-2.6 [facility] Comment on above: Result Comment: YARELI [place] COMMENTS:Higher values can be expected in females during menses. Performed By: #### L AB103, LAB17 ####Security Control Room Officer: UNA ARCE ([id number])[facility] (SBHLAB)[address] MANUAL DIFFERENTIAL (CELLAVI BANDAR)on 04-17-2025 ANISOCYTOSIS PRESENCE IN BLOOD BY LIGHT MICROSCOPY Slight Abnormal (none) [facility] Comment on above: Performed By: #### Gilbert [id number], [id number] ####Security Control Room Officer: UNA ARCE ([id number])[facility]ENTER[facility] (SBHLAB)[address] [place] [address] BAND NEUTROPHILS TOTAL PER COUNTED LEUKOCYTES BY MANUAL COUNT Normal [facility] Comment on above: Performed By: #### L [id number], [id number] ####Security Control Room Officer: UNA ARCE ([id number])[facility] (SBHLAB)[address] BASOPHILS (10*3/UL) IN BLOOD-CELLAVISION 0.4 10*3/uL High 0.0-0.2 [facility] Comment on above: Performed By: #### L [id number], [id number] ####Security Control Room Officer: UNA ARCE ([id number])[facility] [place] (SBHLAB)[address] [place] [address] [place] BASOPHILS TOTAL PER COUNTED LEUKOCYTES BY MANUAL COUNT 3 Normal [facility] Comment on above: Performed By: #### L [id number], [id number] ####Security Control Room Officer: UNA STAUFFERMELANIE ([id number])[facility] [place] (SBHLAB)[address] [place] [address] [place] BASOPHILS/100 LEUKOCYTES IN BLOOD-CELLAVISION 3 % High 0-2 [facility] Comment on above: Performed By: #### L [id number], [id number] ####Security Control Room Officer: UNA ARCE ([id number])[facility] [place] (SBHLAB)[address] [place] [address] [place] BLASTS TOTAL PER COUNTED LEUKOCYTES BY MANUAL COUNT Normal [facility] Comment on above: Performed By: #### L [id number], [id number] ####Security Control Room Officer: UNA ARCE ([id number])[facility] [place] (SBHLAB)[address] [place] [address] [place] EOSINOPHILS (10*3/UL) IN BLOOD-CELLAVISION 0.2 10*3/uL Normal 0.0-0.5 [facility] Comment on above: Performed By: #### L [id number], [id number] ####Security Control Room Officer: UNA ARCE ([id number])[facility] [place] (SBHLAB)[address] [place] [address] [place] EOSINOPHILS TOTAL PER COUNTED LEUKOCYTES BY MANUAL COUNT 2 High 0-1 [facility] Comment on above: Performed By: #### L [id number], [id number] ####Security Control Room Officer: UNA ARCE ([id number])[facility] [place] (SBHLAB)[address] [place] [address] [place] EOSINOPHILS/100 LEUKOCYTES IN BLOOD-CELLAVISION 2 % Normal 0-6 [facility] Comment on above: Performed By: #### L [id number], [id number] ####Security Control Room Officer: UNA ARCE ([id number])[facility] [place] (SBHLAB)[address] HYPOCHROMIA (PRESENCE) IN BLOOD BY LIGHT MICROSCOPY Moderate Abnormal (none) [facility] Comment on above: Performed By: #### L [id number], [id number] ####Security Control Room Officer: UNA ARCE ([id number])[facility] [place] (SBHLAB)[address] [place] [address] [place] LYMPHOCYTES (10*3/UL) IN BLOOD-CELLAVISION 1.3 10*3/uL Normal 1.0-4.3 [facility] Comment on above: Performed By: #### L [id number], [id number] ####Security Control Room Officer: UNA ARCE ([id number])[facility] [place] (SBHLAB)[address] LYMPHOCYTES TOTAL PER COUNTED LEUKOCYTES BY MANUAL COUNT 11 Normal [facility] Comment on above: Performed By: #### L [id number], [id number] ####Security Control Room Officer: UNA ARCE ([id number])[facility] (SBHLAB)[address] [place] [address] [place] LYMPHOCYTES/100 LEUKOCYTES IN BLOOD-CELLAVISION 11 % Low 15-45 [facility] Comment on above: Performed By: #### L [id number], [id number] ####Security Control Room Officer: UNA ARCE ([id number])[facility] (SBHLAB)[address] [place] [address] [place] METAMYELOCYTES TOTAL PER COUNTED LEUKOCYTES BY MANUAL COUNT Normal [facility] Comment on above: Performed By: #### L [id number], [id number] ####Security Control Room Officer: UNA ARCE ([id number])[facility] [place] (SBHLAB)[address] [place] [address] [place] MONOCYTES (10*3/UL) IN BLOOD-CELLAVISION 0.8 10*3/uL Normal 0.0-0.9 [facility] Comment on above: Performed By: #### L [id number], [id number] ####Security Control Room Officer: UNA ARCE ([id number])[facility] (SBHLAB)[address] [place] [address] [place] MONOCYTES TOTAL PER COUNTED LEUKOCYTES BY MANUAL COUNT 7 Normal [facility] Comment on above: Performed By: #### L [id number], [id number] ####Security Control Room Officer: UNA ARCE ([id number])[facility] (SBHLAB)[address] [place] [address] [place] MONOCYTES/100 LEUKOCYTES IN BLOOD-LUCIANA 7 % Normal -13 [facility] Comment on above: Performed By: #### L [id number], [id number] ####Security Control Room Officer: UNA ARCE ([id number])[facility] [place] (SBHLAB)[address] [place] [address] [place] MYELOCYTES COUNTED BY MANUAL COUNT Normal [facility] Comment on above: Performed By: #### L [id number], [id number] ####Security Control Room Officer: UNA ARCE ([id number])[facility] (SBHLAB)[address] [place] [address] [place] NEUTROPHILS TOTAL PER COUNTED LEUKOCYTES BY MANUAL COUNT 77 Normal [facility] Comment on above: Performed By: #### L [id number], [id number] ####Security Control Room Officer: UNA ARCE ([id number])[facility] (SBHLAB)[address] [place] [address] [place] POIKILOCYTOSIS (PRESENCE) IN BLOOD BY LIGHT MICROSCOPY Moderate Abnormal (none) [facility] Comment on above: Performed By: #### L [id number], [id number] ####Security Control Room Officer: UNA ARCE ([id number])[facility] (SBHLAB)[address] [place] [address] [place] POLYCHROMASIA IN BLOOD BY LIGHT MICROSCOPY Slight Abnormal (none) [facility] Comment on above: Performed By: #### L [id number], [id number] ####Security Control Room Officer: UNA ARCE ([id number])[facility] (SBHLAB)[address] [place] [address] [place] PROMYELOCYTES TOTAL PER COUNTED LEUKOCYTES BY MANUAL COUNT Normal [facility] Comment on above: Performed By: #### L [id number], [id number] ####Security Control Room Officer: UNA ARCE ([id number])[facility] (SBHLAB)[address] RBC MORPHOLOGY IN BLOOD abnormal Normal [facility] Comment on above: Performed By: #### L BY5685, [id number] ####Security Control Room Officer: UNA ARCE ([id number])[facility] [place] (SBHLAB)[address] SEGMENTED NEUTROPHILS (10*3/UL) IN BLOOD-CELLAVISION 9.2 10*3/uL High 1.8-7.5 [facility] Comment on above: Performed By: #### L [id number], [id number] ####Security Control Room Officer: UNA ARCE ([id number])[facility] [place] (SBHLAB)[address] [place] [address] [place] SEGMENTED NEUTROPHILS/100 LEUKOCYTES-CE 77 % Normal 38-82 [facility] Comment on above: Performed By: #### L [id number], [id number] ####Security Control Room Officer: UNA ARCE ([id number])[facility] [place] (SBHLAB)[address] [place] [address] [place] STOMATOCYTES IN BLOOD BY LIGHT MICROSCOPY Moderate Abnormal (none) [facility] Comment on above: Performed By: #### L [id number], [id number] ####Security Control Room Officer: UNA ARCE ([id number])[facility] [place] (SBHLAB)[address] [place] [address] [place] TARGET CELLS IN BLOOD BY LIGHT MICROSCOPY Slight Abnormal (none) [facility] Comment on above: Performed By: #### L [id number], [id number] ####Security Control Room Officer: UNA ARCE ([id number])[facility] [place] (SBHLAB)[address] [place] [address] [place] UNCLASSIFIED CELLS TOTAL PER COUNTED LEUKOCYTES BY MANUAL COUNT Normal [facility] Comment on above: Performed By: #### L [id number], [id number] ####Security Control Room Officer: UNA ARCE ([id number])[facility] (SBHLAB)[address] VARIANT LYMPHOCYTES TOTAL PER COUNTED LEUKOCYTES BY MANUAL COUNT Normal [facility] Comment on above: Performed By: #### L [id number], [id number] ####Security Control Room Officer: UNA ARCE ([id number])[facility] (SBHLAB)[address] Magnesium [Mass/Vol]on 04-17 Interpretation and review of laboratory results Normal [facility] No Panel Informationon 04-17 [facility] Basophils Manual 3 [facility] 2 High 0 - 1 [facility] Interpretation and review of laboratory results Abnormal [facility] Lymphocytes Manual 11 [facility] Monocytes Manual 7 [facility] Neutrophils Manual 77 [facility] Nursing Noteon 04-17-2025 Nursing Note Report given to Flor MYERS at [facility]. All belongings sent with patient, including eyewear. HL removed, site WNL. Normal [facility] Progress Noteon 04-17-2025 Progress Note Normal [facility] Progress Note Normal [facility] [id number] 04-16-2025 [id number] Tasked weekend TTC t o follow for possible dc over the weekend. manager social media to follow and assist as needed. Normal [facility] [id number] [id number] Complete in HEN S for [facility] per TCC request [facility] [phone] Normal [facility] CBC W Auto Differential pane l (Bld)Ordered By: Dayan Hernandez on 04-16-2025 Erythrocyte distribution width (RBC) [Ratio] 25.7 % High 11.5 - 15.0 % [facility] Hematocrit (Bld) [Volume fraction] 28.4 % Low 40.0 - 52.0 % [facility] Hemoglobin (Bld) [Mass/Vol] 8 g/dL Low 13.0 - 18.0 g/dL [facility] Interpretation and review of laboratory results Abnormal [facility] MCH (RBC) [Entitic mass] 23.7 pg Low 26. 0 - 34.0 pg [facility] MCHC (RBC) [Mass/Vol] 28.2 % Low 30.5 - 36.0 % [facility] MCV (RBC) [Entitic vol] 84.3 fL 77.0 - 99.0 fL [facility] Platelet mean volume (Bld) [Entitic vol] 9.1 fL 9.0 - 12.7 fL [facility] Platelets (Bld) [#/Vol] 405 10*3/uL 140 - 440 10*3/uL [facility] RBC (Bld) [#/Vol] 3.37 10*6/uL Low 4.40 - 5.9 0 10*6/uL [facility] WBC (Bld) [#/Vol] 13.1 10*3/uL High 3.6 - 10.7 10*3/uL [facility] CBC WITH AUTO DIFFERENTIALon 04-16-2025 Erythrocyte distribution width (RBC) [Ratio] 25.7 % High 11.5-15.0 [facility] Comment on above: Performed By: #### L [id number], [id number] ####Security Control Room Officer: UNA [id number])[facility] ([facility])[address] [place] [address] Hematocrit (Bld) [Volume fraction] 28.4 % Low 40.0-52.0 [facility] Comment on above: Performed By: #### L [id number], [id number] ####Security Control Room Officer: UNA ARCE ([phone])[facility] ([facility])[address] [place] [address] Hemoglobin (Bld) [Mass/Vol] 8.0 g/dL Low 13.0-18.0 [facility] Comment on above: Performed By: #### L [id number], [id number] ####Security Control Room Officer: UNA ARCE ([id number])[facility] [place] (SBHLAB)[address] MCH (RBC) [Entitic mass] 23.7 pg Low 26.0-34.0 [facility] Comment on above: Performed By: #### L [id number], [id number] ####Security Control Room Officer: UNA ARCE ([id number])[facility] (SB[facility])[address] MCHC 28.2 % Low 30.5-36.0 [facility] Comment on above: Performed By: #### L [id number], [id number] ####Security Control Room Officer: UNA STAUFFERMELANIE ([id number])[facility] (SB[facility])[address] [place] [address] MCV (RBC) [Entitic vol] 84.3 fL Normal 77.0-99.0 [facility] Comment on above: Performed By: #### L [id number], [id number] ####Security Control Room Officer: UNA ARCE ([phone])[facility] ([facility])[address] Platelet mean volume (Bld) [Entitic vol] 9.1 fL Normal 9.0-12.7 [facility] Comment on above: Performed By: #### L [id number], [id number] ####Security Control Room Officer: UNA ARCE ([id number])[facility] (SB[facility])[address] Platelets (Bld) [#/Vol] 405 10*3/uL Normal 140-440 [facility] Comment on above: Performed By: #### L [id number], [id number] ####Security Control Room Officer: UNA STAUFFERMELANIE ([id number])[facility] (SB[facility])[address] RBC (Bld) [#/Vol] 3.37 10*6/uL Low 4.40-5.90 [facility] Comment on above: Performed By: #### L [id number], [id number] ####Security Control Room Officer: UNA ARCE ([id number])[facility] [place] (SBHLAB)[address] WBC (Bld) [#/Vol] 13.1 10*3/uL High 3.6-10.7 [facility] Comment on above: Performed By: #### L [id number], [id number] ####Security Control Room Officer: UNA ARCE ([id number])[facility] (SB[facility]AB)[address] COMPREHENSIVE METABOLIC PANE Anant 04-16-2025 Albumin [Mass/Vol] 2.2 g/dL Low 3.4-4.8 [facility] Comment on above: Performed By: #### L AB103, LAB17 ####Security Control Room Officer: UNA ARCE ([id number])[facility] [place] (SBHLAB)[address] ALP [Catalytic activity/Vol] 55 U/L Normal 40-150 [facility] Comment on above: Performed By: #### L AB103, LAB17 ####Security Control Room Officer: UNA ARCE ([id number])[facility] [place] (SBHLAB)[address] ALT [Catalytic activity/Vol] 6 U/L Normal <40 [facility] Comment on above: Performed By: #### L AB103, LAB17 ####Security Control Room Officer: UNA ARCE ([phone])[facility] [place] (SBHLAB)[address] Anion gap [Moles/Vol] 10 mmol/L Normal 3-13 [facility] Comment on above: Performed By: #### L AB103, LAB17 ####Security Control Room Officer: UNA ARCE ([id number])[facility] (SBHLAB)[address] [place] [address] [place] AST [Catalytic activity/Vol] 23 U/L Normal <34 [facility] Comment on above: Performed By: #### L AB103, LAB17 ####Security Control Room Officer: UNA ARCE ([phone])[facility] [place] (SBHLAB)[address] Bilirubin [Mass/Vol] 0.5 mg/dL Normal <1.2 [facility] Comment on above: Performed By: #### L AB103, LAB17 ####Security Control Room Officer: UNA ARCE ([id number])[facility] [place] (SBHLAB)[address] Calcium [Mass/Vol] 8.2 mg/dL Low 8.8-10.0 [facility] Comment on above: Performed By: #### L AB103, LAB17 ####Security Control Room Officer: UNA ARCE ([id number])[facility] [place] (SBHLAB)[address] [place] [address] [place] Chloride [Moles/Vol] 87 mmol/L Low 98-107 [facility] Comment on above: Performed By: #### L AB103, LAB17 ####Security Control Room Officer: UNA ARCE ([id number])[facility] [place] (SBHLAB)[address] [place] [address] [place] CO2 [Moles/Vol] 43 mmol/L High 23-31 [facility] Comment on above: Performed By: #### L AB103, LAB17 ####Security Control Room Officer: UNA ARCE ([phone])[facility] [place] (SBHLAB)[address] [place] [address] [place] Creatinine [Mass/Vol] 1.81 mg/dL High 0.72-1.25 [facility] Comment on above: Performed By: #### L AB103, LAB17 ####Security Control Room Officer: UNA ARCE ([id number])[facility] [place] (SBHLAB)[address] [place] [address] [place] GLOMERULAR FILTRATION RATE ML/MIN/1.73 SQ M.PREDICTED 35.3 mL/min/1.73m*2 Low >60.0 [facility] Comment on above: Result Comment: Calc ulation based on the Chronic Kidney Disease Epidemiology Collaboration (CKD-EPI) equation refit without adjustment for race Performed By: #### L AB103, LAB17 ####Security Control Room Officer: UNA ARCE ([id number])[facility] (SBHL[facility])[address] Glucose [Mass/Vol] 114 mg/dL Normal 82-115 [facility] Comment on above: Performed By: #### L AB103, LAB17 ####Security Control Room Officer: UNA ARCE ([id number])[facility] (SBHLAB)[address] Potassium [Moles/Vol] 3.6 mmol/L Normal 3.5-5.1 [facility] Comment on above: Result Comment: [facility] potassium values may be up to 0.5 mmol/L lower than serum values. Performed By: #### L AB103, LAB17 ####Security Control Room Officer: UNA ARCE ([phone])[facility] (SB[facility])[address] Protein [Mass/Vol] 6.0 g/dL Low 6.4-8.3 [facility] Comment on above: Performed By: #### L AB103, LAB17 ####Security Control Room Officer: UNA ARCE ([id number])[facility] (SB[facility])[address] [place] [address] [place] Sodium [Moles/Vol] 140 mmol/L Normal 136-145 [facility] Comment on above: Performed By: #### L AB103, LAB17 ####Security Control Room Officer: UNA ARCE ([id number])[facility] (SB[facility])[address] Urea nitrogen [Mass/Vol] 46 mg/dL High 9-23 [facility] Comment on above: Performed By: #### L AB103, LAB17 ####Security Control Room Officer: UNA ARCE ([id number])[facility] (SBHLAB)[address] [place] [address] Comprehensive metabolic 1998 panelon 04-16-2025 Albumin [Mass/Vol] 2.2 g/dL Low 3.4 - 4.8 g/dL [facility] ALP [Catalytic activity/Vol] 55 U/L 40 - 150 U/L [facility] ALT [Catalytic activity/Vol] 6 U/L NINF - 40 U/L [facility] Anion gap [Moles/Vol] 10 mmol/L 3 - 13 mmol/L [facility] AST [Catalytic activity/Vol] 23 U/L NINF - 34 U/L [facility] Bilirubin [Mass/Vol] 0.5 mg/dL NINF - 1.2 mg/dL [facility] Calcium [Mass/Vol] 8.2 mg/dL Low 8.8 - 10. 0 mg/dL [facility] Chloride [Moles/Vol] 87 mmol/L Low 98 - 10 7 mmol/L [facility] CO2 [Moles/Vol] 43 mmol/L High 23 - 31 mmol/L [facility] Creatinine [Mass/Vol] 1.81 mg/dL High 0.72 - 1.25 mg/dL [facility] GFR/1.73 sq M.predicted (S/P/Bld) [Vol rate/Area] 35.3 mL/min Low - PINF [facility] Glucose [Mass/Vol] 114 mg/dL 82 - 115 mg/dL [facility] Interpretation and review of laboratory results Abnormal [facility] Potassium [Moles/Vol] 3.6 mmol/L 3.5 - 5.1 mmol/L [facility] Protein [Mass/Vol] 6 g/dL Low 6.4 - 8.3 g/dL [facility] Sodium [Moles/Vol] 140 mmol/L 136 - 145 mmol/L [facility] Urea nitrogen [Mass/Vol] 46 mg/dL High 9 - 23 mg/d L [facility] Laboratory - Chemistry and C hemistry - challengeon 04-16-2025 Magnesium [Mass/Vol] 1.8 mg/dL 1.6 - 2 .6 mg/dL [facility] Laboratory - Hematology and Cell countson 04-16-2025 Anisocytosis Ql (Bld) Moderate Abnormal (none) [facility] Basophils (Bld) [#/Vol] 0.1 10*3/uL 0.0 - 0.2 10*3/uL [facility] Basophils/100 WBC (Bld) 1 % 0 - 2 % [facility] cells LM Ql (Bld) Slight Abnormal (none) [facility] Eosinophils (Bld) [#/Vol] 0.5 10*3/uL 0.0 - 0.5 10*3/uL [facility] Eosinophils/100 WBC (Bld) 4 % 0 - 6 % [facility] Hypochromia Ql (Bld) Slight Abnormal (none) [facility] Lymphocytes (Bld) [#/Vol] 1.6 10*3/uL 1.0 - 4.3 10*3/uL [facility] Lymphocytes/100 WBC (Bld) 12 % Low 15 - 45 % [facility] Monocytes (Bld) [#/Vol] 0.9 10*3/uL 0.0 - 0.9 10*3/uL [facility] Monocytes/100 WBC (Bld) 7 % 5 - 13 % [facility] Neutrophils (Bld) [#/Vol] 9.8 10*3/uL High 1.8 - 7.5 10*3/uL [facility] Poikilocytosis LM Ql (Bld) Slight Abnormal (none) [facility] RBC morphology finding Nom (Bld) abnormal [facility] Segmented neutrophils/100 WBC (Bld) 75 % 38 - 82 % [facility] Variant lymphocytes (Bld) [#/Vol] 0.3 10*3/uL High NINF - 0.0 10*3/uL [facility] Variant lymphocytes/100 WBC (Bld) 2 % High NINF - 0 % [facility] MAGNESIUMon 04-16-2025 Magnesium [Mass/Vol] 1.8 mg/dL Normal 1.6-2.6 [facility] Comment on above: Result Comment: [facility] [place] COMMENTS:Higher values can be expected in females during menses. Performed By: #### L AB103, LAB17 ####Security Control Room Officer: UNA ARCE ([phone])[facility] (SBHLAB)[address] [place] [address] MANUAL DIFFERENTIAL (CELLAVI BANDAR)on 04-16-2025 ANISOCYTOSIS PRESENCE IN BLOOD BY LIGHT MICROSCOPY Moderate Abnormal (none) [facility] Comment on above: Performed By: #### L [id number], [id number] ####Security Control Room Officer: UNA ARCE ([id number])[facility] [place] (SBHLAB)[address] [place] [address] [place] BAND NEUTROPHILS TOTAL PER COUNTED LEUKOCYTES BY MANUAL COUNT Normal [facility] Comment on above: Performed By: #### L [id number], [id number] ####Security Control Room Officer: UNA STAUFFERMELANIE ([phone])[facility] [place] (SBHLAB)[address] [place] [address] [place] BASOPHILS (10*3/UL) IN BLOOD-CELLAVISION 0.1 10*3/uL Normal 0.0-0.2 [facility] Comment on above: Performed By: #### L [id number], [id number] ####Security Control Room Officer: UNA ARCE ([id number])[facility] [place] (SBHLAB)[address] [place] [address] [place] BASOPHILS TOTAL PER COUNTED LEUKOCYTES BY MANUAL COUNT 1 Normal [facility] Comment on above: Performed By: #### L [id number], [id number] ####Security Control Room Officer: UNA ARCE ([id number])[facility] [place] (SBHLAB)[address] [place] [address] [place] BASOPHILS/100 LEUKOCYTES IN BLOOD-CELLAVISION 1 % Normal 0-2 [facility] Comment on above: Performed By: #### L [id number], [id number] ####Security Control Room Officer: UNA ARCE ([id number])[facility] [place] (SBHLAB)[address] [place] [address] [place] BLASTS TOTAL PER COUNTED LEUKOCYTES BY MANUAL COUNT Normal [facility] Comment on above: Performed By: #### L [id number], [id number] ####Security Control Room Officer: UNA ARCE ([id number])[facility] [place] (SBHLAB)[address] [place] [address] [place] MEENA CELLS PRESENCE IN BLOOD BY LIGHT MICROSCOPY Slight Abnormal (none) [facility] Comment on above: Performed By: #### L [id number], [id number] ####Security Control Room Officer: UNA ARCE ([id number])[facility] [place] (SBHL[facility])[address] [place] [address] [place] EOSINOPHILS (10*3/UL) IN BLOOD-CELLAVISION 0.5 10*3/uL Normal 0.0-0.5 [facility] Comment on above: Performed By: #### L [id number], [id number] ####Security Control Room Officer: UNA ARCE ([id number])[facility] [place] (SBHLAB)[address] [place] [address] [place] EOSINOPHILS TOTAL PER COUNTED LEUKOCYTES BY MANUAL COUNT 4 High 0-1 [facility] Comment on above: Performed By: #### L [id number], [id number] ####Security Control Room Officer: UNA ARCE ([id number])[facility] [place] (SBHL[facility])[address] [place] [address] [place] EOSINOPHILS/100 LEUKOCYTES IN BLOOD-CELLAVISION 4 % Normal 0-6 [facility] Comment on above: Performed By: #### L [id number], [id number] ####Security Control Room Officer: UNA ARCE ([id number])[facility] [place] (SBHL[facility])[address] [place] [address] [place] HYPOCHROMIA (PRESENCE) IN BLOOD BY LIGHT MICROSCOPY Slight Abnormal (none) [facility] Comment on above: Performed By: #### L [id number], [id number] ####Security Control Room Officer: UNA ARCE ([id number])[facility] [place] (SBHL[facility])[address] [place] [address] [place] LYMPHOCYTE VARIANT/100 LEUKOCYTES IN BLOOD- CELLAVISION 2 % High <=0 [facility] Comment on above: Performed By: #### L [id number], [id number] ####Security Control Room Officer: UNA ARCE ([id number])[facility] [place] (SBHL[facility])[address] [place] [address] [place] LYMPHOCYTES (10*3/UL) IN BLOOD-CELLAVISION 1.6 10*3/uL Normal 1.0-4.3 [facility] Comment on above: Performed By: #### L [id number], [id number] ####Security Control Room Officer: UNA ARCE ([id number])[facility] [place] (SBHLAB)[address] LYMPHOCYTES TOTAL PER COUNTED LEUKOCYTES BY MANUAL COUNT 12 Normal [facility] Comment on above: Performed By: #### L [id number], [id number] ####Security Control Room Officer: UNA MOHRCER ([id number])[facility] [place] (SB[facility])[address] [place] [address] [place] LYMPHOCYTES/100 LEUKOCYTES IN BLOOD-CELLAVISION 12 % Low 15-45 [facility] Comment on above: Performed By: #### L [id number], [id number] ####Security Control Room Officer: UNA ARCE ([id number])[facility] [place] (SBHLAB)[address] METAMYELOCYTES TOTAL PER COUNTED LEUKOCYTES BY MANUAL COUNT [facility] Comment on above: Performed By: #### L [id number], [id number] ####Security Control Room Officer: UNA ARCE ([id number])[facility] [place] (SB[facility])[address] [place] [address] [place] MONOCYTES (10*3/UL) IN BLOOD-CELLAVISION 0.9 10*3/uL Normal 0.0-0.9 [facility] Comment on above: Performed By: #### L [id number], [id number] ####Security Control Room Officer: UNA ARCE ([id number])[facility] [place] (SB[facility])[address] [place] [address] [place] MONOCYTES TOTAL PER COUNTED LEUKOCYTES BY MANUAL COUNT 7 Normal [facility] Comment on above: Performed By: #### L [id number], [id number] ####Security Control Room Officer: UNA ARCE ([id number])[facility] [place] (SBHLAB)[address] [place] [address] [place] MONOCYTES/100 LEUKOCYTES IN BLOOD-LUCIANA 7 % Normal 5-13 [facility] Comment on above: Performed By: #### L [id number], [id number] ####Security Control Room Officer: UNA ARCE ([id number])[facility] [place] (SBHLAB)[address] [place] [address] [place] MYELOCYTES COUNTED BY MANUAL COUNT Normal [facility] Comment on above: Performed By: #### L [id number], [id number] ####Security Control Room Officer: UNA ARCE ([id number])[facility] [place] (SBHLAB)[address] [place] [address] [place] NEUTROPHILS TOTAL PER COUNTED LEUKOCYTES BY MANUAL COUNT 77 Normal [facility] Comment on above: Performed By: #### L [id number], [id number] ####Security Control Room Officer: UNA ARCE ([id number])[facility] [place] (SB[facility])[address] [place] [address] [place] POIKILOCYTOSIS (PRESENCE) IN BLOOD BY LIGHT MICROSCOPY Slight Abnormal (none) [facility] Comment on above: Performed By: #### L [id number], [id number] ####Security Control Room Officer: UNA ARCE ([id number])[facility] [place] (SB[facility])[address] [place] [address] [place] PROMYELOCYTES TOTAL PER COUNTED LEUKOCYTES BY MANUAL COUNT Normal [facility] Comment on above: Performed By: #### L [id number], [id number] ####Security Control Room Officer: UNA ARCE ([id number])[facility] [place] (SB[facility])[address] [place] [address] [place] RBC MORPHOLOGY IN BLOOD abnormal Normal [facility] Comment on above: Performed By: #### L [id number], [id number] ####Security Control Room Officer: UNA ARCE ([id number])[facility] [place] (SB[facility])[address] [place] [address] [place] SEGMENTED NEUTROPHILS (10*3/UL) IN BLOOD-CELLAVISION 9.8 10*3/uL High 1.8-7.5 [facility] Comment on above: Performed By: #### L [id number], [id number] ####Security Control Room Officer: UNA ARCE ([id number])[facility] [place] (SB[facility])[address] SEGMENTED NEUTROPHILS/100 LEUKOCYTES-CE 75 % Normal 38-82 [facility] Comment on above: Performed By: #### L [id number], [id number] ####Security Control Room Officer: UNA ARCE ([id number])[facility] [place] (SB[facility])[address] UNCLASSIFIED CELLS TOTAL PER COUNTED LEUKOCYTES BY MANUAL COUNT Normal [facility] Comment on above: Performed By: #### L [id number], [id number] ####Security Control Room Officer: UNA ARCE ([id number])[facility] (SB[facility])[address] VARIANT LYMPHOCYTES (10*3/UL) IN BLOOD-CELLAVISION 0.3 10*3/uL High <=0.0 [facility] Comment on above: Performed By: #### L [id number], [id number] ####Security Control Room Officer: UNA ARCE ([id number])[facility] [place] ([facility])[address] VARIANT LYMPHOCYTES TOTAL PER COUNTED LEUKOCYTES BY MANUAL COUNT 2 Normal [facility] Comment on above: Performed By: #### L [id number], [id number] ####Security Control Room Officer: UNA ARCE ([id number])[facility] [place] (SB[facility])[address] [place] [address] [place] Magnesium [Mass/Vol]on 04-16 Interpretation and review of laboratory results Normal [facility] No Panel Informationon 04-16 [facility] Atypical Lymphocytes Manual 2 [facility] E[facility] Manual 4 High 0 - 1 [facility] Interpretation and review of laboratory results Abnormal [facility] Lymphocytes Manual 12 [facility] Monocytes Manual 7 [facility] alth Neutrophils Manual 77 [facility] Nursing Noteon 04-16-2025 Nursing Note Normal [facility] Progress Noteon 04-16-2025 Progress [facility] [id number] 04-15-2025 [id number] Normal [facility] Bacteria identified Anaer cx Nom (Unsp spec)on 04-15-2025 Interpretation and review of laboratory results Normal [facility] CBC W Auto Differential pane l (Bld)on 04-15-2025 Erythrocyte distribution width (RBC) [Ratio] 25.3 % High 11.5 - 15.0 % [facility] Hematocrit (Bld) [Volume fraction] 28 % Low 40.0 - 52.0 % [facility] Hemoglobin (Bld) [Mass/Vol] 7.8 g/dL Low 13.0 - 18.0 g/dL [facility] Interpretation and review of laboratory results Abnormal [facility] MCH (RBC) [Entitic mass] 23.4 pg Low 26. 0 - 34.0 pg [facility] MCHC (RBC) [Mass/Vol] 27.9 % Low 30.5 - 36.0 % [facility] MCV (RBC) [Entitic vol] 84.1 fL 77.0 - 99.0 fL [facility] Platelet mean volume (Bld) [Entitic vol] 9.1 fL 9.0 - 12.7 fL [facility] Platelets (Bld) [#/Vol] 332 10*3/uL 140 - 440 10*3/uL [facility] RBC (Bld) [#/Vol] 3.33 10*6/uL Low 4.40 - 5.9 0 10*6/uL [facility] WBC (Bld) [#/Vol] 12.4 10*3/uL High 3.6 - 10.7 10*3/uL [facility] CBC WITH AUTO DIFFERENTIALon 04-15-2025 Erythrocyte distribution width (RBC) [Ratio] 25.3 % High 11.5-15.0 [facility] Comment on above: Performed By: #### L [id number], [id number] ####Security Control Room Officer: UNA STAUFFERMELANIE ([id number])[facility] [place] (SB[facility])[address] Hematocrit (Bld) [Volume fraction] 28.0 % Low 40.0-52.0 [facility] Comment on above: Performed By: #### L [id number], [id number] ####Security Control Room Officer: UNA ARCE ([id number])[facility] (SB[facility])[address] Hemoglobin (Bld) [Mass/Vol] 7.8 g/dL Low 13.0-18.0 [facility] Comment on above: Performed By: #### L [id number], [id number] ####Security Control Room Officer: UNA STAUFFERMELANIE ([id number])[facility] ([facility])[address] MCH (RBC) [Entitic mass] 23.4 pg Low 26.0-34.0 [facility] Comment on above: Performed By: #### L [id number], [id number] ####Security Control Room Officer: UNA ARCE ([phone])[facility] CENTERAngel [facility] (SBHLAB)[address] MCHC 27.9 % Low 30.5-36.0 [facility] Comment on above: Performed By: #### L [id number], [id number] ####Security Control Room Officer: UNA ARCE ([phone])[facility] (SBHLAB)[address] MCV (RBC) [Entitic vol] 84.1 fL Normal 77.0-99.0 [facility] Comment on above: Performed By: #### L [id number], [id number] ####Security Control Room Officer: UNA ARCE ([id number])[facility] [place] (SBHLAB)[address] Platelet mean volume (Bld) [Entitic vol] 9.1 fL Normal 9.0-12.7 [facility] Comment on above: Performed By: #### L [id number], [id number] ####Security Control Room Officer: UNA ARCE ([id number])[facility] (SBHLAB)[address] Platelets (Bld) [#/Vol] 332 10*3/uL Normal 140-440 [facility] Comment on above: Performed By: #### L [id number], [id number] ####Security Control Room Officer: UNA ARCE ([phone])[facility] [place] (SBHLAB)[address] RBC (Bld) [#/Vol] 3.33 10*6/uL Low 4.40-5.90 [facility] Comment on above: Performed By: #### L [id number], [id number] ####Security Control Room Officer: UNA ARCE ([phone])[facility] (SBHLAB)[address] WBC (Bld) [#/Vol] 12.4 10*3/uL High 3.6-10.7 [facility] Comment on above: Performed By: #### L [id number], [id number] ####Security Control Room Officer: UNA ARCE ([id number])[facility] (SBHLAB)[address] COMPREHENSIVE METABOLIC PANE Anant 04-15-2025 Albumin [Mass/Vol] 2.1 g/dL Low 3.4-4.8 [facility] Comment on above: Performed By: #### L [id number], [id number] ####Security Control Room Officer: UNA ARCE ([phone])[facility] (SB[facility]AB)[address] ALP [Catalytic activity/Vol] 48 U/L Normal 40-150 [facility] Comment on above: Performed By: #### L AB17, [id number] ####Security Control Room Officer: UNA [phone])[facility] [place] (SBHLAB)[address] ALT [Catalytic activity/Vol] U/L Normal <40 [facility] Comment on above: Performed By: #### L AB17, [id number] ####Security Control Room Officer: UNA ARCE ([phone])[facility] [place] (SBHLAB)[address] Anion gap [Moles/Vol] 9 mmol/L Normal 3-13 [facility] Comment on above: Performed By: #### L AB17, [id number] ####Security Control Room Officer: UNA ARCE ([phone])[facility] [place] (SBHLAB)[address] AST [Catalytic activity/Vol] 21 U/L Normal <34 [facility] Comment on above: Performed By: #### L AB17, [id number] ####Security Control Room Officer: UNA ARCE ([phone])[facility] [place] (SBHLAB)[address] Bilirubin [Mass/Vol] 0.6 mg/dL Normal <1.2 [facility] Comment on above: Performed By: #### L AB17, [id number] ####Security Control Room Officer: UNA ARCE ([phone])[facility] [place] (SBHLAB)[address] Calcium [Mass/Vol] 8.2 mg/dL Low 8.8-10.0 [facility] Comment on above: Performed By: #### L AB17, [id number] ####Security Control Room Officer: UNA ARCE ([phone])[facility] [place] (SBHLAB)[address] [place] [address] [place] Chloride [Moles/Vol] 90 mmol/L Low 98-107 [facility] Comment on above: Performed By: #### L AB17, [id number] ####Security Control Room Officer: UNA ARCE ([id number])[facility] [place] (SBHLAB)[address] CO2 [Moles/Vol] 40 mmol/L High 23-31 [facility] Comment on above: Performed By: #### L AB17, [id number] ####Security Control Room Officer: UNA ARCE ([id number])[facility]Angel [place] (SBHLAB)[address] Creatinine [Mass/Vol] 1.58 mg/dL High 0.72-1.25 [facility] Comment on above: Performed By: #### L AB17, [id number] ####Security Control Room Officer: UNA ARCE ([phone])[facility] (SBHLAB)[address] GLOMERULAR FILTRATION RATE ML/MIN/1.73 SQ M.PREDICTED 41.6 mL/min/1.73m*2 Low >60.0 [facility] Comment on above: Result Comment: Calc ulation based on the Chronic Kidney Disease Epidemiology Collaboration (CKD-EPI) equation refit without adjustment for race Performed By: #### L AB17, [id number] ####Security Control Room Officer: UNA ARCE ([phone])[facility] (SBHLAB)[address] Glucose [Mass/Vol] 130 mg/dL High 82-115 [facility] Comment on above: Performed By: #### L AB17, [id number] ####Security Control Room Officer: UNA ARCE ([id number])[facility] (SBHLAB)[address] Potassium [Moles/Vol] 3.5 mmol/L Normal 3.5-5.1 [facility] Comment on above: Result Comment: [facility] potassium values may be up to 0.5 mmol/L lower than serum values. Performed By: #### L AB17, [id number] ####Security Control Room Officer: UNA ARCE ([id number])[facility] (SBHLAB)[address] Protein [Mass/Vol] 5.7 g/dL Low 6.4-8.3 [facility] Comment on above: Performed By: #### L AB17, [id number] ####Security Control Room Officer: UNA BERMUDEZSILASMELANIE ([id number])[facility] (SBHLAB)[address] Sodium [Moles/Vol] 139 mmol/L Normal 136-145 [facility] Comment on above: Performed By: #### L AB17, [id number] ####Security Control Room Officer: UNA BERMUDEZPEDRO ([id number])[facility] (SBHLAB)[address] Urea nitrogen [Mass/Vol] 43 mg/dL High 9-23 [facility] Comment on above: Performed By: #### L AB17, [id number] ####Security Control Room Officer: UNAANJEL BERMUDEZPEDRO ([id number])[facility] (SBHLAB)[address] Comprehensive metabolic 1998 panelon 04-15-2025 Albumin [Mass/Vol] 2.1 g/dL Low 3.4 - 4.8 g/dL [facility] ALP [Catalytic activity/Vol] 48 U/L 40 - 150 U/L [facility] ALT [Catalytic activity/Vol] U/L [facility] U/L [facility] Anion gap [Moles/Vol] 9 mmol/L 3 - 13 mmol/L [facility] AST [Catalytic activity/Vol] 21 U/L [facility] - 34 U/L [facility] Bilirubin [Mass/Vol] 0.6 mg/dL NINF - 1.2 mg/dL [facility] Calcium [Mass/Vol] 8.2 mg/dL Low 8.8 - 10. 0 mg/dL [facility] Chloride [Moles/Vol] 90 mmol/L Low 98 - 10 7 mmol/L [facility] CO2 [Moles/Vol] 40 mmol/L High 23 - 31 mmol/L [facility] Creatinine [Mass/Vol] 1.58 mg/dL High 0.72 - 1.25 mg/dL [facility] GFR/1.73 sq M.predicted (S/P/Bld) [Vol rate/Area] 41.6 mL/min Low - PINF [facility] Glucose [Mass/Vol] 130 mg/dL High 82 - 115 mg/dL [facility] Interpretation and review of laboratory results Abnormal [facility] Potassium [Moles/Vol] 3.5 mmol/L 3.5 - 5.1 mmol/L [facility] Protein [Mass/Vol] 5.7 g/dL Low 6.4 - 8.3 g/dL [facility] Sodium [Moles/Vol] 139 mmol/L 136 - 145 mmol/L [facility] Urea nitrogen [Mass/Vol] 43 mg/dL High 9 - 23 mg/d L [facility] Laboratory - Chemistry and C hemistry - challengeon 04-15-2025 Magnesium [Mass/Vol] 1.8 mg/dL 1.6 - 2 .6 mg/dL [facility] Laboratory - Hematology and Cell countson 04-15-2025 Anisocytosis Ql (Bld) Moderate Abnormal (none) [facility] Basophils (Bld) [#/Vol] 0.2 10*3/uL 0.0 - 0.2 10*3/uL [facility] Basophils/100 WBC (Bld) 2 % 0 - 2 % [facility] Eosinophils (Bld) [#/Vol] 0.1 10*3/uL 0.0 - 0.5 10*3/uL [facility] Eosinophils/100 WBC (Bld) 1 % 0 - 6 % [facility] Hypochromia Ql (Bld) Moderate Abnormal (none) [facility] Lymphocytes (Bld) [#/Vol] 1.2 10*3/uL 1.0 - 4.3 10*3/uL [facility] Lymphocytes/100 WBC (Bld) 10 % Low 15 - 45 % [facility] Monocytes (Bld) [#/Vol] 1.6 10*3/uL High 0.0 - 0.9 10*3/uL [facility] Monocytes/100 WBC (Bld) 13 % 5 - 13 % [facility] Neutrophils (Bld) [#/Vol] 9.3 10*3/uL High 1.8 - 7.5 10*3/uL [facility] Poikilocytosis LM Ql (Bld) Slight Abnormal (none) [facility] RBC morphology finding Nom (Bld) abnormal [facility] Segmented neutrophils/100 WBC (Bld) 75 % 38 - 82 % [facility] Stomatocytes LM Ql (Bld) Slight Abnormal (none) [facility] - Microbiology an d Antimicrobial susceptibilityon 04-15-2025 Bacteria identified Anaer cx Nom (Unsp spec) No growth at 5 days [facility] Lower GI hemoglobin spec 1 I A Ql (Stl)Ordered By: Haroldo Alvarez on 04-15-2025 Fecal occult blood Negative Negative [facility] Interpretation and review of laboratory results Normal [facility] MAGNESIUMon 04-15-2025 Magnesium [Mass/Vol] 1.8 mg/dL Normal 1.6-2.6 [facility] Comment on above: Result Comment: YARELI R COMMENTS:Higher values can be expected in females during menses. Performed By: #### L AB17, [id number] ####Security Control Room Officer: UNA ARCE ([id number])[facility] (SBAB)[address] [place] [address] MANUAL DIFFERENTIAL (CELLAVI BANDAR)on 04-15-2025 ANISOCYTOSIS PRESENCE IN BLOOD BY LIGHT MICROSCOPY Moderate Abnormal (none) [facility] Comment on above: Performed By: #### L [id number], [id number] ####Security Control Room Officer: UNA ARCE ([phone])[facility] (SBAB)[address] BAND NEUTROPHILS TOTAL PER COUNTED LEUKOCYTES BY MANUAL COUNT Normal [facility] Comment on above: Performed By: #### L [id number], [id number] ####Security Control Room Officer: UNA ARCE ([id number])[facility]Angel [facility] (SBHLAB)[address] BASOPHILS (10*3/UL) IN BLOOD-CELLAVISION 0.2 10*3/uL Normal 0.0-0.2 [facility] Comment on above: Performed By: #### L [id number], [id number] ####Security Control Room Officer: UNA ARCE ([id number])[facility] (SBHLAB)[address] BASOPHILS TOTAL PER COUNTED LEUKOCYTES BY MANUAL COUNT 2 Normal [facility] Comment on above: Performed By: #### L [id number], [id number] ####Security Control Room Officer: UNA ARCE ([phone])[facility] [place] (SBHLAB)[address] [place] [address] [place] BASOPHILS/100 LEUKOCYTES IN BLOOD-CELLAVISION 2 % Normal 0-2 [facility] Comment on above: Performed By: #### L [id number], [id number] ####Security Control Room Officer: UNA ARCE ([id number])[facility] [place] (SBHLAB)[address] [place] [address] [place] BLASTS TOTAL PER COUNTED LEUKOCYTES BY MANUAL COUNT Normal [facility] Comment on above: Performed By: #### L [id number], [id number] ####Security Control Room Officer: UNA STAUFFERMELANIE ([phone])[facility] [place] (SBHLAB)[address] [place] [address] [place] EOSINOPHILS (10*3/UL) IN BLOOD-CELLAVISION 0.1 10*3/uL Normal 0.0-0.5 [facility] Comment on above: Performed By: #### L [id number], [id number] ####Security Control Room Officer: UNA ARCE ([id number])[facility] [place] (SBHLAB)[address] [place] [address] [place] EOSINOPHILS TOTAL PER COUNTED LEUKOCYTES BY MANUAL COUNT 1 Normal 0-1 [facility] Comment on above: Performed By: #### L [id number], [id number] ####Security Control Room Officer: UNA ARCE ([id number])[facility] [place] (SBHLAB)[address] [place] [address] [place] EOSINOPHILS/100 LEUKOCYTES IN BLOOD-CELLAVISION 1 % Normal 0-6 [facility] Comment on above: Performed By: #### L [id number], [id number] ####Security Control Room Officer: UNA ARCE ([phone])[facility] [place] (SBHLAB)[address] [place] [address] [place] HYPOCHROMIA (PRESENCE) IN BLOOD BY LIGHT MICROSCOPY Moderate Abnormal (none) [facility] Comment on above: Performed By: #### L [id number], [id number] ####Security Control Room Officer: UNA ARCE ([id number])[facility] [place] (SBHLAB)[address] [place] [address] [place] LYMPHOCYTES (10*3/UL) IN BLOOD-CELLAVISION 1.2 10*3/uL Normal 1.0-4.3 [facility] Comment on above: Performed By: #### L [id number], [id number] ####Security Control Room Officer: UNA ARCE ([phone])[facility] [place] (SBHLAB)[address] LYMPHOCYTES TOTAL PER COUNTED LEUKOCYTES BY MANUAL COUNT 10 Normal [facility] Comment on above: Performed By: #### L [id number], [id number] ####Security Control Room Officer: UNA ARCE ([phone])[facility] [place] (SBHLAB)[address] [place] [address] [place] LYMPHOCYTES/100 LEUKOCYTES IN BLOOD-CELLAVISION 10 % Low 15-45 [facility] Comment on above: Performed By: #### L [id number], [id number] ####Security Control Room Officer: UNA ARCE ([phone])[facility] [place] (SBHLAB)[address] [place] [address] [place] METAMYELOCYTES TOTAL PER COUNTED LEUKOCYTES BY MANUAL COUNT Normal [facility] Comment on above: Performed By: #### L [id number], [id number] ####Security Control Room Officer: UNA ARCE ([id number])[facility] [place] (SBHLAB)[address] [place] [address] [place] MONOCYTES (10*3/UL) IN BLOOD-CELLAVISION 1.6 10*3/uL High 0.0-0.9 [facility] Comment on above: Performed By: #### L [id number], [id number] ####Security Control Room Officer: UNA ARCE ([id number])[facility] [place] (SBHLAB)[address] [place] [address] [place] MONOCYTES TOTAL PER COUNTED LEUKOCYTES BY MANUAL COUNT 13 Normal [facility] Comment on above: Performed By: #### L [id number], [id number] ####Security Control Room Officer: UNA STAUFFERMELANIE ([phone])[facility] [place] (SBHLAB)[address] [place] [address] [place] MONOCYTES/100 LEUKOCYTES IN BLOOD-LUCIANA 13 % Normal - [facility] Comment on above: Performed By: #### L [id number], [id number] ####Security Control Room Officer: UNA STAUFFERMELANIE ([phone])[facility] [place] (SBHLAB)[address] [place] [address] [place] MYELOCYTES COUNTED BY MANUAL COUNT [facility] Comment on above: Performed By: #### L [id number], [id number] ####Security Control Room Officer: UNA STAUFFERMELANIE ([id number])[facility] [place] (SBHLAB)[address] [place] [address] [place] NEUTROPHILS TOTAL PER COUNTED LEUKOCYTES BY MANUAL COUNT 77 Normal [facility] Comment on above: Performed By: #### L [id number], [id number] ####Security Control Room Officer: UNA ARCE ([id number])[facility] [place] (SBHLAB)[address] [place] [address] [place] POIKILOCYTOSIS (PRESENCE) IN BLOOD BY LIGHT MICROSCOPY Slight Abnormal (none) [facility] Comment on above: Performed By: #### L [id number], [id number] ####Security Control Room Officer: UNA ARCE ([phone])[facility] [place] (SBHLAB)[address] [place] [address] [place] PROMYELOCYTES TOTAL PER COUNTED LEUKOCYTES BY MANUAL COUNT [facility] Comment on above: Performed By: #### L [id number], [id number] ####Security Control Room Officer: UNA ARCE ([phone])[facility] [place] (SBHLAB)[address] [place] [address] [place] RBC MORPHOLOGY IN BLOOD abnormal Normal [facility] Comment on above: Performed By: #### L [id number], [id number] ####Security Control Room Officer: UNA ARCE ([phone])[facility] (SBHLAB)[address] SEGMENTED NEUTROPHILS (10*3/UL) IN BLOOD-CELLAVISION 9.3 10*3/uL High 1.8-7.5 [facility] Comment on above: Performed By: #### L [id number], [id number] ####Security Control Room Officer: UNA ARCE ([phone])[facility] (SBHLAB)[address] SEGMENTED NEUTROPHILS/100 LEUKOCYTES-CE 75 % Normal 38-82 [facility] Comment on above: Performed By: #### L [id number], [id number] ####Security Control Room Officer: UNA ARCE ([phone])[facility] (SBHLAB)[address] STOMATOCYTES IN BLOOD BY LIGHT MICROSCOPY Slight Abnormal (none) [facility] Comment on above: Performed By: #### L [id number], [id number] ####Security Control Room Officer: UNA ARCE ([id number])[facility] (SBHLAB)[address] UNCLASSIFIED CELLS TOTAL PER COUNTED LEUKOCYTES BY MANUAL COUNT Normal [facility] Comment on above: Performed By: #### L [id number], [id number] ####Security Control Room Officer: UNA ARCE ([id number])[facility] (SBHLAB)[address] VARIANT LYMPHOCYTES TOTAL PER COUNTED LEUKOCYTES BY MANUAL COUNT Normal [facility] Comment on above: Performed By: #### L [id number], [id number] ####Security Control Room Officer: UNA ARCE ([phone])[facility] (SBHLAB)[address] [place] [address] [place] Magnesium [Mass/Vol]on 04-15 Interpretation and review of laboratory results Normal [facility] No Panel Informationon 04-15 Basophils Manual 2 [facility] alth Eosinophils Manual 1 0 - 1 [facility] Interpretation and review of laboratory results Abnormal [facility] Lymphocytes Manual 10 [facility] Monocytes Manual 13 [facility] Neutrophils Manual 77 [facility] OCCULT BLOOD, STOOLon 2024 OCCULT BLOOD, STOOL FECAL OCCULT, STOOL Reference Negative Negative ORDER COMMENTS: Methodology: Immunoassay Normal [facility] Comment on above: Performed By: #### L [id number] ####Security Control Room Officer: UNA ARCE ([id number])[facility] ([facility] [place] [address] Progress Noteon 04-15-2025 Progress Note [facility] Progress Note Normal [facility] Progress [facility] XR Chest Single viewon 04-15 [facility] Radiology Study observation (narrative) Lynette Balderrama alth [id number] 04-14-2025 [id number] Normal [facility] Bacteria identified Anaer cx Nom (Unsp spec)on 04-14-2025 Interpretation and review of laboratory results Normal [facility] CBC W Auto Differential pane l (Bld)on 04-14-2025 Erythrocyte distribution width (RBC) [Ratio] 25.4 % High 11.5 - 15.0 % [facility] Hematocrit (Bld) [Volume fraction] 27.3 % Low 40.0 - 52.0 % [facility] Hemoglobin (Bld) [Mass/Vol] 7.6 g/dL Low 13.0 - 18.0 g/dL [facility] MCH (RBC) [Entitic mass] 23.2 pg Low 26. 0 - 34.0 pg [facility] MCHC (RBC) [Mass/Vol] 27.8 % Low 30.5 - 36.0 % [facility] MCV (RBC) [Entitic vol] 83.5 fL 77.0 - 99.0 fL [facility] Platelet mean volume (Bld) [Entitic vol] 8.9 fL Low 9.0 - 12.7 fL [facility] Platelets (Bld) [#/Vol] 293 10*3/uL 140 - 440 10*3/uL [facility] RBC (Bld) [#/Vol] 3.27 10*6/uL Low 4.40 - 5.9 0 10*6/uL [facility] WBC (Bld) [#/Vol] 12.3 10*3/uL High 3.6 - 10.7 10*3/uL [facility] CBC WITH AUTO DIFFERENTIALon 04-14-2025 Erythrocyte distribution width (RBC) [Ratio] 25.4 % High 11.5-15.0 [facility] Comment on above: Performed By: #### L [id number], [id number] ####Security Control Room Officer: UNA ARCE ([phone])[facility] (SBAB)[address] [place] [address] Hematocrit (Bld) [Volume fraction] 27.3 % Low 40.0-52.0 [facility] Comment on above: Performed By: #### L [id number], [id number] ####Security Control Room Officer: UNA ARCE ([id number])[facility] (SBHLAB)[address] [place] [address] Hemoglobin (Bld) [Mass/Vol] 7.6 g/dL Low 13.0-18.0 [facility] Comment on above: Performed By: #### L [id number], [id number] ####Security Control Room Officer: UNA ARCE ([phone])[facility] (SBHLAB)[address] [place] [address] MCH (RBC) [Entitic mass] 23.2 pg Low 26.0-34.0 [facility] Comment on above: Performed By: #### L [id number], [id number] ####Security Control Room Officer: UNA ARCE ([phone])[facility] (SBHLAB)[address] [place] [address] MCHC 27.8 % Low 30.5-36.0 [facility] Comment on above: Performed By: #### L [id number], [id number] ####Security Control Room Officer: UNA ARCE ([id number])[facility] (SBAB)[address] MCV (RBC) [Entitic vol] 83.5 fL Normal 77.0-99.0 [facility] Comment on above: Performed By: #### L [id number], [id number] ####Security Control Room Officer: UNA ARCE ([phone])[facility] (SBHLAB)[address] Platelet mean volume (Bld) [Entitic vol] 8.9 fL Low 9.0-12.7 [facility] Comment on above: Performed By: #### L [id number], [id number] ####Security Control Room Officer: UNA ARCE ([id number])[facility] [place] (SBHLAB)[address] Platelets (Bld) [#/Vol] 293 10*3/uL Normal 140-440 [facility] Comment on above: Performed By: #### L [id number], [id number] ####Security Control Room Officer: UNA ARCE ([phone])[facility] [place] (SBHLAB)[address] RBC (Bld) [#/Vol] 3.27 10*6/uL Low 4.40-5.90 [facility] Comment on above: Performed By: #### L [id number], [id number] ####Security Control Room Officer: UNA ARCE ([id number])[facility] [place] (SBHLAB)[address] WBC (Bld) [#/Vol] 12.3 10*3/uL High 3.6-10.7 [facility] Comment on above: Performed By: #### L [id number], [id number] ####Security Control Room Officer: UNA ARCE ([id number])[facility] (SBHLAB)[address] COMPREHENSIVE METABOLIC PANE Anant 04-14-2025 Albumin [Mass/Vol] 2.1 g/dL Low 3.4-4.8 [facility] Comment on above: Performed By: #### L AB103, LAB17 ####Security Control Room Officer: UNA ARCE ([id number])[facility]N (SBHLAB)[address] ALP [Catalytic activity/Vol] 47 U/L Normal 40-150 [facility] Comment on above: Performed By: #### L AB103, LAB17 ####Security Control Room Officer: UNA ARCE ([id number])[facility] [place] (SBHLAB)[address] ALT [Catalytic activity/Vol] U/L Normal <40 [facility] Comment on above: Performed By: #### L AB103, LAB17 ####Security Control Room Officer: UNA ARCE ([id number])[facility] (SBHLAB)[address] Anion gap [Moles/Vol] 9 mmol/L Normal 3-13 [facility] Comment on above: Performed By: #### L AB103, LAB17 ####Security Control Room Officer: UNA ARCE ([id number])[facility] ([facility] AST [Catalytic activity/Vol] 19 U/L Normal <34 [facility] Comment on above: Performed By: #### L AB103, LAB17 ####Security Control Room Officer: UNA ARCE ([id number])[facility] [place] (SBHLAB)[address] Bilirubin [Mass/Vol] 0.6 mg/dL Normal <1.2 [facility] Comment on above: Performed By: #### L AB103, LAB17 ####Security Control Room Officer: UNA ARCE ([phone])[facility] ([facility] Calcium [Mass/Vol] 8.1 mg/dL Low 8.8-10.0 [facility] Comment on above: Performed By: #### L AB103, LAB17 ####Security Control Room Officer: UNA ARCE ([id number])[facility] (SBHLAB)[address] Chloride [Moles/Vol] 92 mmol/L Low 98-107 [facility] Comment on above: Performed By: #### L AB103, LAB17 ####Security Control Room Officer: UNA ARCE ([id number])[facility] [place] (SBHLAB)[address] CO2 [Moles/Vol] 39 mmol/L High 23-31 [facility] Comment on above: Performed By: #### L AB103, LAB17 ####Security Control Room Officer: UNA ARCE ([id number])[facility] [place] (SBHLAB)[address] Creatinine [Mass/Vol] 1.43 mg/dL High 0.72-1.25 [facility] Comment on above: Performed By: #### L AB103, LAB17 ####Security Control Room Officer: UNA ARCE ([phone])[facility] [place] (SBHLAB)[address] GLOMERULAR FILTRATION RATE ML/MIN/1.73 SQ M.PREDICTED 46.8 mL/min/1.73m*2 Low >60.0 [facility] Comment on above: Result Comment: Calc ulation based on the Chronic Kidney Disease Epidemiology Collaboration (CKD-EPI) equation refit without adjustment for race Performed By: #### L AB103, LAB17 ####Security Control Room Officer: UNA ARCE ([id number])[facility] [place] (SBHLAB)[address] [place] [address] [place] Glucose [Mass/Vol] 97 mg/dL Normal 82-115 [facility] Comment on above: Performed By: #### L AB103, LAB17 ####Security Control Room Officer: UNA ARCE ([id number])[facility] [place] (SBHLAB)[address] [place] [address] [place] Potassium [Moles/Vol] 3.8 mmol/L Normal 3.5-5.1 [facility] Comment on above: Result Comment: [facility] potassium values may be up to 0.5 mmol/L lower than serum values. Performed By: #### L AB103, LAB17 ####Security Control Room Officer: UNA ARCE ([id number])[facility] ([facility])[address] Protein [Mass/Vol] 5.7 g/dL Low 6.4-8.3 [facility] Comment on above: Performed By: #### L AB103, LAB17 ####Security Control Room Officer: UNA ARCE ([id number])[facility] (SB[facility])[address] Sodium [Moles/Vol] 140 mmol/L Normal 136-145 [facility] Comment on above: Performed By: #### L AB103, LAB17 ####Security Control Room Officer: UNA ARCE ([id number])[facility] ([facility] Urea nitrogen [Mass/Vol] 39 mg/dL High 9-23 [facility] Comment on above: Performed By: #### L AB103, LAB17 ####Security Control Room Officer: UNA STAUFFERMELANIE ([id number])[facility] (SBHLAB)[address] Comprehensive metabolic 1998 panelon 04-14-2025 Albumin [Mass/Vol] 2.1 g/dL Low 3.4 - 4.8 g/dL [facility] ALP [Catalytic activity/Vol] 47 U/L 40 - 150 U/L [facility] ALT [Catalytic activity/Vol] U/L NINF - 40 U/L [facility] Anion gap [Moles/Vol] 9 mmol/L 3 - 13 mmol/L [facility] AST [Catalytic activity/Vol] 19 U/L NINF - 34 U/L [facility] Bilirubin [Mass/Vol] 0.6 mg/dL NINF - 1.2 mg/dL [facility] Calcium [Mass/Vol] 8.1 mg/dL Low 8.8 - 10. 0 mg/dL [facility] Chloride [Moles/Vol] 92 mmol/L Low 98 - 10 7 mmol/L [facility] CO2 [Moles/Vol] 39 mmol/L High 23 - 31 mmol/L [facility] Creatinine [Mass/Vol] 1.43 mg/dL High 0.72 - 1.25 mg/dL [facility] GFR/1.73 sq M.predicted (S/P/Bld) [Vol rate/Area] 46.8 mL/min Low - PINF [facility] Glucose [Mass/Vol] 97 mg/dL 82 - 115 mg/dL [facility] Interpretation and review of laboratory results Abnormal [facility] Potassium [Moles/Vol] 3.8 mmol/L 3.5 - 5.1 mmol/L [facility] Protein [Mass/Vol] 5.7 g/dL Low 6.4 - 8.3 g/dL [facility] Sodium [Moles/Vol] 140 mmol/L 136 - 145 mmol/L [facility] Urea nitrogen [Mass/Vol] 39 mg/dL High 9 - 23 mg/d L [facility] Consulton 04-14-2025 Consult Normal [facility] ECG 12-LEADon 04-14-2025 ECG 12-LEAD IMPRESSION: Sinus arrhythmia LEFT ANTERIOR FASCICULAR BLOCK MULTIPLE ATRIAL PREMATURE COMPLEXES Compared to ECG 04/05/2025 15:59:31 No significant changes Electronically Signed On 04-14-2025 07:12:58 EDT by Ronal aMurice Normal [facility] Laboratory - Chemistry and C hemistry - challengeon 04-14-2025 Magnesium [Mass/Vol] 1.9 mg/dL 1.6 - 2 .6 mg/dL [facility] Laboratory - Hematology and Cell countson 04-14-2025 Anisocytosis Ql (Bld) Slight Abnormal (none) [facility] Basophils (Bld) [#/Vol] 0.1 10*3/uL 0.0 - 0.2 10*3/uL [facility] Basophils/100 WBC (Bld) 1 % 0 - 2 % [facility] Eosinophils (Bld) [#/Vol] 0.4 10*3/uL 0.0 - 0.5 10*3/uL [facility] Eosinophils/100 WBC (Bld) 3 % 0 - 6 % [facility] Hypochromia Ql (Bld) Moderate Abnormal (none) [facility] Lymphocytes (Bld) [#/Vol] 0.9 10*3/uL Low 1.0 - 4.3 10*3/uL [facility] Lymphocytes/100 WBC (Bld) 7 % Low 15 - 45 % [facility] Monocytes (Bld) [#/Vol] 1.8 10*3/uL High 0.0 - 0.9 10*3/uL [facility] Monocytes/100 WBC (Bld) 15 % High 5 - 13 % [facility] Neutrophils (Bld) [#/Vol] 9.1 10*3/uL High 1.8 - 7.5 10*3/uL [facility] Poikilocytosis LM Ql (Bld) Slight Abnormal (none) [facility] RBC morphology finding Nom (Bld) abnormal [facility] Segmented neutrophils/100 WBC (Bld) 74 % 38 - 82 % [facility] Stomatocytes LM Ql (Bld) Moderate Abnormal (none) [facility] Variant lymphocytes (Bld) [#/Vol] 0.1 10*3/uL High NINF - 0.0 10*3/uL [facility] Variant lymphocytes/100 WBC (Bld) 1 % High NINF - 0 % [facility] Laboratory - Microbiology an d Antimicrobial susceptibilityon 04-14-2025 Bacteria identified Anaer cx Nom (Unsp spec) No growth at 5 days [facility] MAGNESIUMon 04-14-2025 Magnesium [Mass/Vol] 1.9 mg/dL Normal 1.6-2.6 [facility] Comment on above: Result Comment: [facility] [place] COMMENTS:Higher values can be expected in females during menses. Performed By: #### L AB103, LAB17 ####Security Control Room Officer: UNA ARCE ([id number])[facility] (SBAB)[address] MANUAL DIFFERENTIAL (CELLAVI BANDAR)on 04-14-2025 ANISOCYTOSIS PRESENCE IN BLOOD BY LIGHT MICROSCOPY Slight Abnormal (none) [facility] Comment on above: Performed By: #### L [id number], [id number] ####Security Control Room Officer: UNA ARCE ([id number])[facility] [place] (SBHLAB)[address] [place] [address] [place] BAND NEUTROPHILS TOTAL PER COUNTED LEUKOCYTES BY MANUAL COUNT [facility] Comment on above: Performed By: #### L [id number], [id number] ####Security Control Room Officer: UNA ARCE ([id number])[facility] [place] (SBHLAB)[address] [place] [address] [place] BASOPHILS (10*3/UL) IN BLOOD-CELLAVISION 0.1 10*3/uL Normal 0.0-0.2 [facility] Comment on above: Performed By: #### L [id number], [id number] ####Security Control Room Officer: UNA ARCE ([id number])[facility] [place] (SBHLAB)[address] [place] [address] [place] BASOPHILS TOTAL PER COUNTED LEUKOCYTES BY MANUAL COUNT [address] [facility] Comment on above: Performed By: #### L [id number], [id number] ####Security Control Room Officer: UNA ARCE ([id number])[facility] [place] (SBHLAB)[address] [place] [address] [place] BASOPHILS/100 LEUKOCYTES IN BLOOD-CELLAVISION 1 % Normal 0-2 [facility] Comment on above: Performed By: #### L [id number], [id number] ####Security Control Room Officer: UNA ARCE ([id number])[facility] [place] (SBHLAB)[address] [place] [address] [place] BLASTS TOTAL PER COUNTED LEUKOCYTES BY MANUAL COUNT [facility] Comment on above: Performed By: #### L [id number], [id number] ####Security Control Room Officer: UNA ARCE ([id number])[facility] [place] (SBHLAB)[address] [place] [address] [place] EOSINOPHILS (10*3/UL) IN BLOOD-CELLAVISION 0.4 10*3/uL Normal 0.0-0.5 [facility] Comment on above: Performed By: #### L [id number], [id number] ####Security Control Room Officer: UNA ARCE ([id number])[facility] [place] (SBHLAB)[address] [place] [address] [place] EOSINOPHILS TOTAL PER COUNTED LEUKOCYTES BY MANUAL COUNT 3 High 0-1 [facility] Comment on above: Performed By: #### L [id number], [id number] ####Security Control Room Officer: UNA ARCE ([id number])[facility] [place] (SBHLAB)[address] [place] [address] [place] EOSINOPHILS/100 LEUKOCYTES IN BLOOD-CELLAVISION 3 % Normal 0-6 [facility] Comment on above: Performed By: #### L [id number], [id number] ####Security Control Room Officer: UNA ARCE ([id number])[facility] [place] (SBHLAB)[address] [place] [address] [place] HYPOCHROMIA (PRESENCE) IN BLOOD BY LIGHT MICROSCOPY Moderate Abnormal (none) [facility] Comment on above: Performed By: #### L [id number], [id number] ####Security Control Room Officer: UNA ARCE ([id number])[facility] [place] (SBHLAB)[address] [place] [address] [place] LYMPHOCYTE VARIANT/100 LEUKOCYTES IN BLOOD- CELLAVISION 1 % High <=0 [facility] Comment on above: Performed By: #### L [id number], [id number] ####Security Control Room Officer: UNA ARCE ([id number])[facility] [place] (SBHLAB)[address] [place] [address] [place] LYMPHOCYTES (10*3/UL) IN BLOOD-CELLAVISION 0.9 10*3/uL Low 1.0-4.3 [facility] Comment on above: Performed By: #### L [id number], [id number] ####Security Control Room Officer: UNA ARCE ([id number])[facility] [place] (SBHLAB)[address] [place] [address] [place] LYMPHOCYTES TOTAL PER COUNTED LEUKOCYTES BY MANUAL COUNT 7 Normal [facility] Comment on above: Performed By: #### L [id number], [id number] ####Security Control Room Officer: UNA ARCE ([id number])[facility] [place] (SBHLAB)[address] [place] [address] [place] LYMPHOCYTES/100 LEUKOCYTES IN BLOOD-CELLAVISION 7 % Low 15-45 [facility] Comment on above: Performed By: #### L [id number], [id number] ####Security Control Room Officer: UNA ARCE ([id number])[facility] [place] (SBHLAB)[address] [place] [address] [place] METAMYELOCYTES TOTAL PER COUNTED LEUKOCYTES BY MANUAL COUNT Normal [facility] Comment on above: Performed By: #### L [id number], [id number] ####Security Control Room Officer: UNA ARCE ([id number])[facility] [place] (SBHLAB)[address] [place] [address] [place] MONOCYTES (10*3/UL) IN BLOOD-CELLAVISION 1.8 10*3/uL High 0.0-0.9 [facility] Comment on above: Performed By: #### L [id number], [id number] ####Security Control Room Officer: UNA ARCE ([id number])[facility] [place] (SBHLAB)[address] [place] [address] [place] MONOCYTES TOTAL PER COUNTED LEUKOCYTES BY MANUAL COUNT 15 Normal [facility] Comment on above: Performed By: #### L [id number], [id number] ####Security Control Room Officer: UNA ARCE ([id number])[facility] [place] (SBHLAB)[address] [place] [address] [place] MONOCYTES/100 LEUKOCYTES IN BLOOD-LUCIANA 15 % High 5-13 [facility] Comment on above: Performed By: #### L [id number], [id number] ####Security Control Room Officer: UNA ARCE ([id number])[facility] [place] (SBHLAB)[address] [place] [address] [place] MYELOCYTES COUNTED BY MANUAL COUNT [facility] Comment on above: Performed By: #### L [id number], [id number] ####Security Control Room Officer: UNA ARCE ([id number])[facility] [place] (SBHLAB)[address] [place] [address] [place] NEUTROPHILS TOTAL PER COUNTED LEUKOCYTES BY MANUAL COUNT 75 Normal [facility] Comment on above: Performed By: #### L [id number], [id number] ####Security Control Room Officer: UNA ARCE ([id number])[facility] [place] (SBHLAB)[address] POIKILOCYTOSIS (PRESENCE) IN BLOOD BY LIGHT MICROSCOPY Slight Abnormal (none) [facility] Comment on above: Performed By: #### L [id number], [id number] ####Security Control Room Officer: UNA MOHRCER ([id number])[facility] [place] (SBHLAB)[address] PROMYELOCYTES TOTAL PER COUNTED LEUKOCYTES BY MANUAL COUNT Normal [facility] Comment on above: Performed By: #### L [id number], [id number] ####Security Control Room Officer: UNA ARCE ([id number])[facility] [place] (SBHLAB)[address] [place] [address] [place] RBC MORPHOLOGY IN BLOOD abnormal Normal [facility] Comment on above: Performed By: #### L [id number], [id number] ####Security Control Room Officer: UNA ARCE ([id number])[facility] [place] (SBHLAB)[address] [place] [address] [place] SEGMENTED NEUTROPHILS (10*3/UL) IN BLOOD-CELLAVISION 9.1 10*3/uL High 1.8-7.5 [facility] Comment on above: Performed By: #### L [id number], [id number] ####Security Control Room Officer: UNA ARCE ([id number])[facility] [place] (SBHLAB)[address] [place] [address] [place] SEGMENTED NEUTROPHILS/100 LEUKOCYTES-CE 74 % Normal 38-82 [facility] Comment on above: Performed By: #### L [id number], [id number] ####Security Control Room Officer: UNA ARCE ([id number])[facility] [place] (SBHLAB)[address] [place] [address] [place] STOMATOCYTES IN BLOOD BY LIGHT MICROSCOPY Moderate Abnormal (none) [facility] Comment on above: Performed By: #### L [id number], [id number] ####Security Control Room Officer: UNA ARCE ([id number])[facility] (SBHLAB)[address] [place] [address] [place] UNCLASSIFIED CELLS TOTAL PER COUNTED LEUKOCYTES BY MANUAL COUNT Normal [facility] Comment on above: Performed By: #### L [id number], [id number] ####Security Control Room Officer: UNA ARCE ([id number])[facility] (SBHLAB)[address] VARIANT LYMPHOCYTES (10*3/UL) IN BLOOD-CELLAVISION 0.1 10*3/uL High <=0.0 [facility] Comment on above: Performed By: #### L [id number], [id number] ####Security Control Room Officer: UNA ARCE ([id number])[facility] (SBHLAB)[address] VARIANT LYMPHOCYTES TOTAL PER COUNTED LEUKOCYTES BY MANUAL COUNT 1 Normal [facility] Comment on above: Performed By: #### L [id number], [id number] ####Security Control Room Officer: UNA ARCE ([id number])[facility] (SBHLAB)[address] [place] [address] [place] Magnesium [Mass/Vol]on 04-14 Interpretation and review of laboratory results Normal [facility] No Panel Informationon 04-14 [facility] Radiology Study observation (narrative) [facility] ander Case Report [facility] Case Screening Location [facility], [address] [place] [address]; CLIA: [id number]; Joint Commission: [id number]; CAP: [id number] [facility] Comment n1zgeMZbAQHsnVRsHYAn M YjfkuBfMLKqiGOiR6Cokz swEVnlFE5bLL6oaLoioCK wtAEjXXRqAtRkh6dqm149 oHTea1znLZCPCWryLYMZG Cf1tJefJ52pa4M3ZxtfO0 3pfTZrTGE0MPFmYYAgnAA xWZMpCBD1SPDxdNRgK5th CZYdBR9sqnlhDHruASdgW OVztQO6FCYwmCSkT6PdNP UwEJpfMOIwfgk9BfJhSk9 vdGVyeTcyMFxwYXJkXHBs YWluXGZzMjAgUGxlYXNlI DEvSPXit0AcP2mdpWAlXX WwWQUee3WzYKA6jW9kc3i 7LEIgRZXlbIBhYBxOScE8 YWJdIYVwfLZnIix6VAO9z NHzBSFePEe1eY8sYBdgd8 4xp4QlPkdrMEL5 [facility] w6shsUObOSUwaWInOkAt M ZSzPYTbe8usVAMzePPmQs EwMzNcZnRuYmpcdWMxXGR jIsBhe9sfa235iZPld8vh CSGcTqF2pEBpOHJlJ51tY BREN626YJOlGXlyc1eiz8 BdWPVyiDKbk3O6FEBCQEr sIUXRIXh2cGjdG26ne0T1 GefaN3ltPTIaXYZaF3WuV D0vKOBmSxl0LBR8OXG9UH PwZHIjC9SfID0iUPQjqCO nKZo7q6vwfZdsFWTuPRQ9 p5fzAArnasTnXQ3cuo8mw Hs8x2qjzmCjFZUmRGLtlZ NTBHLeD7WvaDliFt2agUd 5jCfqJtyfBLL8Nnl8XJ3n oq37rcz4pJrdPCEivxgvD dX5YYmxVKKsoyieFFn0GH dlMCOudVX4ZJNpfDAaR6K oSOSkHI9bfks4WON4IAsz OLIlRcY2XAXcbXNeBCMvk WhoDJppo316MSC1OeZzDJ 6oE5Sma5C8aD1rkQTzYWZ mwRIgLgXgBZVafm8msEPo MMjfq5EzXTM2uoS8uDUve KMdCHMnTJ99Awrxo5DiRr yhHOT8UOUiiaGdn9Cvb9k rKiJqqsViE7mbD2TvPKRj SCNaTIRsEqUjczAxr7Var 4DfhTXreVe3y7bdWBExFC JvyOssu5hfWHT7FBOaH6I 3rOHhu7qbZRorMFSkmAX0 ibM2LGNjuTTsN5VppC4nC TWkIZ3bftk6b2tvZTC8LM umIHVwFcK5ryC6LNAdeDA bNZSxpChhPSaxu702ZDL0 QlZyEYEyo1HzO2TcjAmzN 64cbLkyP08aAMTjkHdpwH 9rrLpnlH6yUbHnKxCyZRb xbFxwbGFpblxmMVxmczE2 AKiwlqrsUYHbVOybD6vsE oSpFVJzpFfbULuqw2StXD JxBVStVQJpQQoxU7sttJ2 xycgzCTljAIGkxGzjc1mb KxLoqTM4AN5gfvXdIUVhc NzmdyE0spFcfHftlU8kdF 7xlSsoaI6bpNZniNZ6veg sIGluIHNpdHUgaHlicmlk cStbePjpoeffrL9qTJH1m EPzTRT6fYKvGQQzHWMlCY MkfJ95lm6jkAWzhaViP7K hT8DgyRDbsFwyGepyzRZz aEIaNj6esRGiPV5nBFSok BUoD6LyVQ5nZDOuzpzvXF IgVGhlIHVzZSBvZiBvbmU nk2NhfA3oTOAtQDNxBT11 jkFmadS5nWXnOHNxjkFjq GVzdHMgaXMgcmVndWxhdG BhPKYtUVMjCVWgBGd9oNF so9BkB5syxPCfjsSsA4Yz zTSmDENHWD8sHTzhj5Zpv WHgqLMnd9PeKEQuXDVfdL 7wMXOuKF4vSHUrGUrvVTH fuyPojt7xxlChEJXhCQDn K0MwbakesXzhsqDzRYDlc v8qwoKjLEQ0AYAgQWCmsL esnSQliPFwFLGtdjM3s1D bCTSwn9OhS7SlqENvGAPe oHDhFWY0c5LavP6dBMaar YZdKYMgGV7woUVvTEFvXC NsZWFyZWQgYnkgdGhlIFV FEAWru7SaOI0wGWArrZyn DJDmzF9rm1CuGWZka86bE EZEQSkuIFRoZSBGREEgaG FzIGRldGVybWluZWQgdGh rhYYltYLyDCUlNVBxQY2p KKNegvKiyCWip6LlnZYqd hGuy7MqxfUvXADmDQI3Ai BccGFyXHBhciBBbGwgaW1 qiZ1gr0MjqW2uKPkhtkRv wVOdMh8xfLFjYQ3fHZKrx mFmZmluIGVtYmVkZGVkIH Kll7B9JF4aTFBwwk9ncdu vnRDzqJ9ceIVceqTsEM4v KE5hV4E0rTXoBKFrtcAli 8djXVs8pISxWKCgkLRtvB DsUxecFUX3OLTgOGI4hvS tnxJxKZAcwRunaYF4nPLc ATWhHCNmLAHvIQ89M1Bht 2IuD8kzWZ85YLPgCFDeEA WmkiQvi1gqVSOti0mzGIH tfAFwV0LzVSEmwZTunstg SdRwYES5EXUsXEK4nEXxF HKmQ3FaiUPynGLbaN19QO 8dyZW6CV9bTRD7ZEyxhQ3 cTlDCnA48fy2xiKF7w1Gd CZ3wX3DfRNIzc5D5uuWvD DUuHG2ahMVqOAHhDGJccV lkYXRlZCBvbiBkZWNhbGN eLtlhTSX4sJNrnQMvTqKB DXX6bIKmWTBul2HaFKGmQ ESfgrGzuiMyVYSdRDX6oO TvTNOktYWec39oI8p3MF6 rrXvwBJKepHDzESMkz9Sd qPTpfZu2kPPqYdHyHEptE HUuPVpbdTy1dFZ7MJ6nPY WmZ5RlU2krwNUiVRUzOYL jfAPajd0bxIVcjK== [facility] n0saqJKlAYScuEZMTKVi M TQjBA0xiZerxUh5oQnbXT YkrzL1lXEkYQnfv5sjVST 6y5cnwmPIXmppATAiRA1p UIepPZPcAD3aBiLjKCMwA mYxXHBhcGVydzEyMjQwXH VmkCQtiSA5YXBzJV1sjnc tNXbwTVtlXMWjucB7LHLa xZMbK6NuUYNgZC9qtmqsA UQ4TLMFKkhkFw5lfWNtzG ANCntcZjFcZmNoYXJzZXQ hAOWvk6vpahLQowothUx9 ZFp0GONuESNobNPfu6J8G Bacn1hiq9YkD1Zxe2SsHG m0bV6PPnhqK41vz7K0Ahz 0TBGzNRw8VUozSWLdWSMk Hxg6SKe7K7ylSPSlNIuyB QZtNApyaORtRSo5ZRrcr2 YyiASxFBj8XFooOUFbB3I cH5PqUQfoBeDsMBpnRWCc IHVoCHubLDPbF3KMCYEsF uI3TiQ0DNCoUBm7QTjxKx ULHRO1WQj3HtD5OUw2FIJ uSP7kKHtxqWIwKUeiBtgn NJcdN117LLviFISmT7UmK 3QgXFxzZyBcXGlkIDUxMD HdJRmuKQJnS4MLVJOpXzF 3YnH1HOQgGOz6FLnfV1MO QIWnMQY8UMW6VbBaQsP9G Tb3SNDAIr3zWSV6XMQ2RN nmZNA9BYRnUGusramyQDn 0IDIgXFxzcyAzIFxcZmwg CEzpA50znNPrKZQUXtwqj GFpblxlcGljTmVzdERvYz MwEYtogIQdmDGjZY6YKKp 0cmNoXGNmMVxmczIwIEEg VJYEwJF9emNoNSPlexq1p RasLzvytXX9BPLmURNtZP vhCNMrXJz4DXJiaLyxERW es7PyV6V8WLGkUZfhk5kn HPEhAPtan0UnICwYQNRLF J5SBW9bgFV9GZoRCYHPV3 vIdNJfWNAcY5iljLO4u0u ivHDxv0m8JOxvWOK6yULg k4VskPmjGufntHL4OBbsO okyqO3mtTMOHTTUMcrEAu ktaqClSI7OHWBCHX9LtFU aAWIgU4bsaND9c5tjkGZw d5t1MZgkMJA0jQpnrVLun lxsdHJjaFxmczIwICBccH CluTDtvJlfTdinqOV9LDs dVyjsyO9yoTRQMKUHSgaN WdtiwzUxZJ3AULOUNaMTO A62ZJT5VIU5tGO3Nx49XV YxKIZcyFObSVxcA700p6H dukgqf3lufUSaXPwlFdvj dLLpbmK2LWjWVREDGRmDQ jSzDN8pHUcXG1FGHeV2WN B6DQB4zMA6Bf82MBVmJZV ifEAnKIhbR744CRFqJBsd CSv8rbYeVCMsZyRvQLYwm IjgBMQlJ2OsnoTqJFpbfw 54PWT4b6oxnEAnGJegJog bdDHnrnN6HGhGRCKGXGzH AkUhWL2yXHhOC9QBVWnWB kwxECouZwX1L1rsuKuiIr simaFgnJTzCzGAyZ9wpwQ riRmgPgeyoGZ3IIqfUqgy iZ5luFYGVYAKVihBHoptt sCbYU0IZPNPYK9OrEUiMM FbOHnfvWV8h0ugvNDrf7w 9LFiuUSE6tAvzoHWwggmg uHYevJuaeuCjAI4sGVOax iANClxiXGNmMiBNYXRlcm cjcKZjPXCbxVZbPXM2BGK fJVVcIWLxQZSwiZ0ZooJd IGFuZCAxIENlbGwgQmxvY 7lokjlzzQUtTV0NGSXlqj ANClxmMlxmczIyXHBhciA UMtqcISEyXYMasKXVg2Fx UXDSPwe8SU1QRLHwKYDnp XUHUCI0LO0uSGxvODLmE7 SfV9ZtcyN6k5joiOzli3S aoQEqZK5fpJIaDU3LEJOx pvCjORcvcAkywH6tFGx1 [facility] Pathologist Interpretation Location [facility], [address] [place] [id number]; CLIA: [id number]; Joint Commission: HCO [id number]; CAP: [id number] [facility] Pathology report final diagnosis Narrative d6ieoBPjNBGfdLXiZJOcV VijvaEyCPZqyYTrD3Cerz fsCHgnBX1qGP7teTphcIG ioMKiYFVlZzUyj0wmg565 bMFvy2ivANFVCUrqDUCBQ Yh5nArrO46kh8W0QzumR0 weDQA3JVemscImvis2GZO xyFI6VOi3KNKgjVRlwtLs GlJsPTTycSGzwGA6VCWvR N2kopljCVajNAotHNSmkm F2IFJwlFYfX2JzBEXfZZ4 pkymkOCU1MKgiKRPmACD9 XeYhEQTmu2Iquvv2MvVoh GFyZFxwbGFpblxmczIwXG NmMSBBICAtIFBsZXVyYWw vE5X5qEK4RZNRtOgzaERh FYTyXVkpDfa7pHMlRPM0w Y0uy8o5QefeKwWkWICehH BxRJ9GQM2RKMtMPlLPFXQ DRUxMUyBJREVOVElGSUVE NmnmLGHcWrHUT5ABVzNgO 6XLSAYJIGSFJ4NLNlatAH BlBC4zbWBpbTZ0aL9hLHG yZXNlbnQuIFxwYXJ9 [facility] CV EPIPHANY [facility] Atypical Lymphocytes Manual 1 [facility] Basophils Manual 1 [facility] Eosinophils Manual 3 High 0 - 1 [facility] Interpretation and review of laboratory results Abnormal [facility] Lymphocytes Manual 7 [facility] Monocytes Manual 15 [facility] Neutrophils Manual 75 [facility] No Panel InformationOrdered By: Marianna Francois on 04-14-2025 [facility] [employer] Work Phone: No Panel InformationOrdered By: Danyel Platt on 04-14-2025 Case Report [facility] [employer] Work Phone: Case Screening Location [facility], [address] [place] [phone]; CLIA: [id number]; Joint Commission: HCO [id number]; CAP: [id number] [facility] [employer] Work Phone: Comment t4nwjJRnWKIbsCZeOVUo M GnxkyFiEANekSPaR4Izqq osVXsoVB8vIQ1ccRpunNT eqGXfPJTfWlQck8ncs558 rSIle7jvZMIAMButGVJYC Ps6qKqeV71ie9I2WyxkC7 2nmQRfYJO7YZTyLOWhyBH tFEYqNDZ5QEJvfOErL8sh JLEdNP0mbxeaIBvmOQilT BLvsJW9VHSzlGBoY4BeOA UdMGosTGSfdgb0RzIbNj1 vdGVyeTcyMFxwYXJkXHBs CQngYVZhDhCuMP7rkD4fu KxomV6qpRXjqFS9awhoXW aebDrpJ56pcAZsdNU9ZIU YZcCppvKtG7UxciB5tD7a biBoaWdobGlnaHQgbWVzb 4SfKOzhENzgA2OojFSlHN BCRVIgRVAgNCwgVFRGLTE rRRZMHXwqIC0eGATXTzDo TZKkJS9wU6Z7eQVbRoBkY 1RqMfUwdBzfzSccN3u1sc GoeA5eql38tfHvJQDtu4T dMUhlit3xzBLhyB== [facility] Work Phone: Disclaimer s6qvxUReZRQqgUDgKgDe M DCxHWDxj4reVXDfaKXiVd EwMzNcZnRuYmpcdWMxXGR zJbMjz4qai239hJPcq2gy LJZyKhM3mSKdAOCxF75yN QZUK422XYAqCUwiy1bew7 YdUEFmsHCif0O3JXVVPDs nCINOJBx7yFsjR59dp3D3 PloaN0oyGNTsDBPdI9QlL H7cXOOzHtg6VBV4WYN1GK VyQDCyX1JbKP3vZZLdfST oAGg1q3wqiAikMNRtUFG5 u0shYXiudhGjZU1mfm0uk Yu7o2bvdsNmFJXjXFGooA PNSQNuN5GurOnpHj9bcSp 0cXefHzosNAD7Ozp6TU3y qx78kbv6xApoJXEydalxE tH2BLpuQSEzwlalREn8MH uiKVShhPI5KNHpbXKiR4D wCDZlCA4njyy8SJW4OMad NTQnUhG2FVOtmPFqUYKdp DbaFDwqh439EWP7FlZxTP 0aU8Xno8D2kQ5lhFQzXSF djFVgVhIyDRVikn0fyDNk PPpcb4DhXAF4odE4nJTky XKnNYXkKS94Scctx5FjVr rfZDL4TULeigXzz2Nkw4f fPmRzcaDrZ8ozO3KqIHEo XTJxDEHnBrWkkuUmv4Dru 3JmfSWjcKa0o3doPDQjZX PgnVwbz8vzPDM0QOXqV3Z 3rNZxk8ucXDrjPFNemIO8 qeY6WFLauUQcT3YrlI7gF NSsCL8sust5w3kaSVN3RK vkBYWnKbM8gvN1FSMuoED eNUBvvYbbDQlvr973FVV5 UhIpSWUul2LrD2NvhOccJ 06szDpyY99wHUUreDbxuI 3lzHzfcR3cXoKcVwPcSKz xbFxwbGFpblxmMVxmczE2 QOdkwcpqBWWsFCmnD3bnV yDaBOZkeRsqPWrax6NvPD DpAVVoMSNyCWofN4tcbU4 eovchPJkaHABzvPoqj7qx HfAkaBU8LB9agvRkICRbu DmmmfY4ppYntCbegU0ieS 0lbLejmP1apOKezCK8jbs sIGluIHNpdHUgaHlicmlk dKseeCbetxofoF9tDPT6s OSoMCB8gMYpIOYoCZRmKU YryA50ns2fkXRyywMuF7A cS2RdoQGirLjqTtluaUXy mYBuBu2rfHEfJZ0oUTUcv OCmG5JyJL2nGPIvlantRI IgVGhlIHVzZSBvZiBvbmU gj8ProH4mPALeTYJfXW15 joYiaeC1tYHsUWHwbeWdc GVzdHMgaXMgcmVndWxhdG LkCQLiAJSxYWCeAUo5jFZ eu4LlG9vwyATuioWeT8Az pYMpMYRPQP6cVBgpc1Xbt GZexALys8QjIJPoMUWahQ 9sRVHsZK4pNSApNXijTHF hdnAgef1cllYpAEGaLYJw H9JntmaqkPsufrAfXDOkx b9svrEdMEG6PCZaHFCurE rleGPsbHNmIEMqylO2f5A zYTAod7HyL4NmsPBoTKTe bZSnJPR9a3ExaV2nCWmkv JHfQFHwHC2bgJUaADUuPB NsZWFyZWQgYnkgdGhlIFV OGWFiy7VlOJ4nNTVscRls XWPxcW6mr9RmBKUjf22hQ EZEQSkuIFRoZSBGREEgaG FzIGRldGVybWluZWQgdGh ipZDgjUYsRQBpUXTqXU3u NIXgmwNmzSZry7VelOGcf iOxl2DccoNkTFCsHBR5Dt BccGFyXHBhciBBbGwgaW1 vdT1bv4EkjT1fHXhrndSz rXLxBq0jxJGcME5dOGSfp mFmZmluIGVtYmVkZGVkIH Fvs7E4OG8jHPPrzc1brti mdFTkzM2qzLPtsrNmHU8d GL3tC2O0jXJxGUYxfsHxq 4kaGRp8fVXkSQAuhGUvbS ZcPskvAWQ3OFIbWYT8nbB qcsYqVHBovUokgXT0rVFt YIOoBXMuALGlPW89D8Hit 3RnY2flXT75UQCsVOVyYW BqqkUko0gjTGCiu6ekPLN odDZjC8WqQTUwqNCzbxvh PtVhRAB5XIAxLFC7aDVuY WRfD6QolNKjyLZfmB08ND 5trNL5DM6dBRI0FLuqkO8 rVjPSoA73kx6iyZL0t8Om HP7mC5ZyGKXvi6Q1buTmA YQbFC1ebDCoEKIrLPZzyH lkYXRlZCBvbiBkZWNhbGN sSttuHHA9eCVozWJjBcGP XYY6jWSwDRMom1EbNKGaX YFawqRystScFSIzKJN2gI WhGHXedEBwk34pK2t8HG9 ljJzkXLBojUYoMZCyz8Wu gUVkhZw8gOBhMwGlXHgkX RJjDWuhaCn2hEZ4KL7uVR OzB6LsO8kkpUMkSGKiYGP ixGFrhz6izSYpgI== [facility] [employer] Work Phone: Gross Description p0azbGTxSLCgtSJGDLGc M WWeQN6emCnmnLd1vYxfNV XidhQ9nNCtKGkyl8ygDAK 6d1kzupYHWhudMRHxEN8t CWkhFAIsBT4xZlHqNPAeB mYxXHBhcGVydzEyMjQwXH TrlOIfvGO0OVBlUN1ajwe fSBlmRQlfDJYqvaA2LBZj rETxC5VbWIQrHB3lxrdhV CS3ESOHQbgtTw1qyVVebC ANCntcZjFcZmNoYXJzZXQ gWXPpt6coddYFfyuszUk4 WZn9FIWkYJLygBQpu3U2C Poxb1eva5ZmG6Oec9SgGH n1cU6JHnsxF85eg4B8Udm 4TISuSQp6NPsfUNCuHFOu Eka4CSt2W8vbAFChOFksO SWdKVblhSWeOYs2XYbiq3 UzgDBxQOw2EVhmVBLxR2X sF5HyGLjtOcFyBBouOAUo CDEbXIakYLEvL9ULWMZwF dX7PTp7PGNuHBp1ETpgAg WAWSV2CAQ7WuM9YDg5DMD oXC5fMQeveCEdYVrkLuyl PQqsU247BWbdRZEgC7HeV 3QgXFxzZyBcXGlkIDUxMD PrTIjuYEVfG4FVMJOaMuA 5XLe5WXTgBRm8HXgqV7EW ZLJtFSG5XKC6BvU4KfV0N Wv1GDTJQj9rOPJ2Evp1Pq z1AUX5KRMbKQudgmkiWGe 0IDIgXFxzcyAzIFxcZmwg SXqjV22omPXzBUITCxygv GFpblxlcGljTmVzdERvYz JhLCmarRAsfFQgNL7IYWv 0cmNoXGNmMVxmczIwIEEg QXWFxOW9ncXrTHNfdvz8d NbuCHDbqWfjK5EaNZNzWO BhciANCjEwMDAgbUwgXHB cp2TpV2Y8NRGkIGuvz4yo IAJcXMzmo6CoCYnPSBMKE T1UFE5suBI5MWqBYZTYI8 eIjAGaLPRpD4kkzLR0h9w yvSCdn3r2KCerTNF7bGRs m5GpuEfoKbrhiGJ7OGmoH powxT4dnNZPCRBVVjnWUj ipijKaOY3EKYCUKF8CjLR yOBDdN1nwmFM6x5wqyXYb y0y1SQpbFDD4eOfluRJss lxsdHJjaFxmczIwICBccH HarKDguHyfDwdapKS1DBa vIwzmzS5swDQSZMZOZxxQ PuarebUgQG6XGFCCRwXUB H17THP7CBZ9pFN2Bc97NJ BtJKJrtHXyFOerG043sRS edS78d7faxDYtJQmwBgsq lLOxnfE6OZjHIURPRRaIE jXpPD1pANrZX8UKCnU7HB K0OVF6xAT7So72TUJiFEH pvBInCCbmG113TMZlFXiu NNo9vkYjWVYaBtDtETExo BwjAVRnZ0VrdaTvLQtqku 02XTI3j5tpiYWgQEknCbb asEMdmyU7QFuTJVKKISrA JbEhYL1kWPrYT3ZGKMnHJ dzdYQqsRmO4O4uvlMhwHg ucfqAlaTSfFfBWlF1nzuS vsPtfOmiohDB8HImiLusm aL1fpHVBKOFJMpdLAxynf hQuJY3XJIADXP3AoHGyJZ IuLObrnJL5f6bhnXJsw2u 3ZItvDEQ2tLoslCLujawt pQAxmXyetmFxXD9jTEArg iANClxiXGNmMiBNYXRlcm dqtQPaLELtsJIuZHY0KMW yLJNpQPZiZORfiL7SbcOv IGFuZCAxIENlbGwgQmxvY 2qpxkummMUqMH6OSUCjqu ANClxmMlxmczIyXHBhciA PCrtqFSChRLOtsRBDc7La MCNVHxz5OL5JZBNxDGGqr ZAYLNO2QS2iTMyiELDtG7 DsX7WtgmL4i1vnlDyty2H unFJzPM0gnXWqOJ0HKTRd qfHfBZoyzRlmbV8eDGd8 [facility] Phone: Pathologist Interpretation Location [facility], [address] [place] [id number]; CLIA: [id number]; Joint Commission: [id number] [id number]; CAP: [id number] [facility] Phone: Pathology report final diagnosis Narrative v6rnnPFqHWEyhAFnUJWoU XqwbjOeDWThrROfL8Aetr waMQnoPP9vXN8sdOgfdJE xvMPxYJGdZgSkf4jvz406 sCVox9doOUBFTWlgXGODA Fj2qDjtO68wx5G7OrjcI2 uaSTO3HOwpuoQxyat6QGQ joBJ4VEz2TEYxdGOdwlSj XjOsRKXteRNoiIB5ERTxA M4rimpqCVzzYFcdOOFdwd Z5ZOYfaKBcD2PrRESnSO6 zhtdgCVG8EFxnIUCuWVR1 FiGtWSBmt8Hbgbq8EvFwg GFyZFxwbGFpblxmczIwXG NmMSBBICAtIFBsZXVyYWw uB6L6aVW6EWRFYIY5XS1e Mq4phNKOaYFtUScoT6r1b 0qlN6y4DPKtOKPtWHxhYX FoFl6bWBTXXOaEOU4MTTU NMNnNSQjKEC8WBXGRQRLi XHBhclxwYXJ9 [employer] Work Phone: [employer] Work Phone: No Panel InformationOrdered By: Ronal Maurice on 04-14-2025 P Morrill 44 degrees [employer] Work Phone: UT Interval 134 ms [facility] Work Phone: QRS Morrill -35 degrees [employer] [facility] Work Phone: QRSD Interval 117 ms [facility] Work Phone: QT Interval 390 ms [employer] Work Phone: QTC Interval 450 ms [employer] Work Phone: T Wave Morrill 78 degrees [employer] Work Phone: [employer] [facility] Work Phone: Nursing Noteon 08-06-2025 Nursing Note Normal [facility] Progress Noteon 04-14-2025 Progress Note Normal [facility] Normal [facility] Progress [facility] Normal [facility] Progress [facility] Normal [facility] Progress [facility] Normal [facility] Progress Note Normal [facility] Progress [facility] Normal [facility] US GUIDED THORACENTESISon US GUIDED THORACENTESIS Normal [facility] Vital signsOrdered By: Jake Maurice on 04-14-2025 Heart rate 80 /min bpm [facility] [employer] Phone: XR Chest Single viewon 04-14 [facility] XR Chest Single viewOrdered By: Anthony Christian on 04-14-2025 [facility] [employer] Phone: [phone] 04-13-2025 [id number] Normal [facility] BLOOD GAS ARTERIALon 025 AMOUNT OF OXYGEN 2 lpm Normal [facility] Comment on above: Order Comment: Pleas e draw tomorrow AM after using BiPAP. Thank you! Performed By: #### L [id number] ####Security Control Room Officer: UNA ARCE ([id number])[facility] ([address] Base excess Calc (Bld) [Moles/Vol] 11.7 mmol/L High -3.0-3.0 [facility] Comment on above: Order Comment: Pleas e draw tomorrow AM after using BiPAP. Thank you! Performed By: #### L [id number] ####Security Control Room Officer: UNA ARCE ([phone])[facility] ([facility])[address] [place] [address] CO2 [Moles/Vol] 39.9 mmol/L High 22.0-28.0 [facility] Comment on above: Order Comment: Pleas e draw tomorrow AM after using BiPAP. Thank you! Performed By: #### L [id number] ####Security Control Room Officer: UNA [id number])[facility] [place] ([facility])[address] HCO3 (Bld) [Moles/Vol] 38.1 mmol/L High 21.0-27.0 [facility] Comment on above: Order Comment: Pleas e draw tomorrow AM after using BiPAP. Thank you! Performed By: #### L [id number] ####Security Control Room Officer: UNA STAUFFERMELANIE ([phone])[facility] ([facility])[address] Hemoglobin (Bld) [Mass/Vol] 11.3 g/dL Low Screen only [facility] Comment on above: Order Comment: Pleas e draw tomorrow AM after using BiPAP. Thank you! Performed By: #### L [id number] ####Security Control Room Officer: UNA STAUFFERMELANIE ([phone])[facility] ([facility])[address] [place] [address] OXYGEN SATURATION (%) IN ARTERIAL BLOOD 95.1 % Low 97.0-99.0 [facility] Comment on above: Order Comment: Pleas e draw tomorrow AM after using BiPAP. Thank you! Performed By: #### L [id number] ####Security Control Room Officer: UNA ARCE ([phone])[facility] ([facility])[address] [place] [address] PCO2 ARTERIAL 59.2 mm Hg High 35.0-48.0 [facility] Comment on above: Order Comment: Pleas e draw tomorrow AM after using BiPAP. Thank you! Performed By: #### L [id number] ####Security Control Room Officer: UNA STAUFFERMELANIE ([id number])[facility] ([facility])[address] PH ARTERIAL 7.426 Normal 7.350-7.450 [facility] Comment on above: Order Comment: Pleas e draw tomorrow AM after using BiPAP. Thank you! Performed By: #### L [id number] ####Security Control Room Officer: UNA ARCE ([id number])[facility] ([facility])[address] PO2 ARTERIAL 79.2 mm Hg Low 83.0-108.0 [facility] Comment on above: Order Comment: Pleas e draw tomorrow AM after using BiPAP. Thank you! Performed By: #### L [id number] ####Security Control Room Officer: UNA ARCE ([phone])[facility] ([facility])[address] SOURCE OF OXYGEN Nasal Cannula (LPM) Normal [facility] Comment on above: Order Comment: Pleas e draw tomorrow AM after using BiPAP. Thank you! Performed By: #### L [id number] ####Security Control Room Officer: UNA ARCE ([id number])[facility] ([facility])[address] Bacteria identified Aer cx N om (Unsp spec)on 04-13-2025 Gram Stain Result Rare Polymorphonuclear leukocytes per low power field [facility] Gram Stain Result No organisms seen [facility] Bacteria identified Aer cx N om (Unsp spec)Ordered By: Bianca Daigle on 04-13-2025 Gram Stain Result Moderate Polymorphonuclear leukocytes per low power field [facility] Gram Stain Result No organisms seen [facility] CBC W Auto Differential pane l (Bld)on 04-13-2025 Erythrocyte distribution width (RBC) [Ratio] 25 % High 11.5 - 15.0 % [facility] Hematocrit (Bld) [Volume fraction] 28.2 % Low 40.0 - 52.0 % [facility] Hemoglobin (Bld) [Mass/Vol] 7.8 g/dL Low 13.0 - 18.0 g/dL [facility] Interpretation and review of laboratory results Abnormal [facility] MCH (RBC) [Entitic mass] 23.2 pg Low 26. 0 - 34.0 pg [facility] MCHC (RBC) [Mass/Vol] 27.7 % Low 30.5 - 36.0 % [facility] MCV (RBC) [Entitic vol] 83.9 fL 77.0 - 99.0 fL [facility] Platelet mean volume (Bld) [Entitic vol] 9.1 fL 9.0 - 12.7 fL [facility] Platelets (Bld) [#/Vol] 276 10*3/uL 140 - 440 10*3/uL [facility] RBC (Bld) [#/Vol] 3.36 10*6/uL Low 4.40 - 5.9 0 10*6/uL [facility] WBC (Bld) [#/Vol] 12.7 10*3/uL High 3.6 - 10.7 10*3/uL [facility] CBC WITH AUTO DIFFERENTIALon 04-13-2025 Erythrocyte distribution width (RBC) [Ratio] 25.0 % High 11.5-15.0 [facility] Comment on above: Performed By: #### L [id number], [id number] ####Security Control Room Officer: UNA ARCE ([id number])[facility] ([facility])[address] [place] [address] Hematocrit (Bld) [Volume fraction] 28.2 % Low 40.0-52.0 [facility] Comment on above: Performed By: #### L [id number], [id number] ####Security Control Room Officer: UNA ARCE ([id number])[facility] ([facility])[address] [place] [address] Hemoglobin (Bld) [Mass/Vol] 7.8 g/dL Low 13.0-18.0 [facility] Comment on above: Performed By: #### L [id number], [id number] ####Security Control Room Officer: UNA ARCE ([id number])[facility] ([facility])[address] [place] [address] MCH (RBC) [Entitic mass] 23.2 pg Low 26.0-34.0 [facility] Comment on above: Performed By: #### L [id number], [id number] ####Security Control Room Officer: UNA ARCE ([id number])[facility] ([facility])[address] [place] [address] MCHC 27.7 % Low 30.5-36.0 [facility] Comment on above: Performed By: #### L [id number], [id number] ####Security Control Room Officer: UNA ARCE ([id number])[facility] ([facility])[address] MCV (RBC) [Entitic vol] 83.9 fL Normal 77.0-99.0 [facility] Comment on above: Performed By: #### L [id number], [id number] ####Security Control Room Officer: UNA ARCE ([id number])[facility] [place] ([facility])[address] Platelet mean volume (Bld) [Entitic vol] 9.1 fL Normal 9.0-12.7 [facility] Comment on above: Performed By: #### L [id number], [id number] ####Security Control Room Officer: UNA ARCE ([id number])[facility] [place] ([facility])[address] [place] [address] [place] Platelets (Bld) [#/Vol] 276 10*3/uL Normal 140-440 [facility] Comment on above: Performed By: #### L [id number], [id number] ####Security Control Room Officer: UNA ARCE ([id number])[facility] [place] ([facility])[address] RBC (Bld) [#/Vol] 3.36 10*6/uL Low 4.40-5.90 [facility] Comment on above: Performed By: #### L [id number], [id number] ####Security Control Room Officer: UNA ARCE ([id number])[facility] [place] ([facility])[address] [place] [address] [place] WBC (Bld) [#/Vol] 12.7 10*3/uL High 3.6-10.7 [facility] Comment on above: Performed By: #### L [id number], [id number] ####Security Control Room Officer: UNA ARCE ([id number])[facility] [place] ([facility])[address] COMPREHENSIVE METABOLIC PANE Anant 04-13-2025 Albumin [Mass/Vol] 2.2 g/dL Low 3.4-4.8 [facility] Comment on above: Performed By: #### L AB17, [id number], [id number] ####Security Control Room Officer: UNA ARCE ([id number])[facility] [place] ([facility])[address] ALP [Catalytic activity/Vol] 52 U/L Normal 40-150 [facility] Comment on above: Performed By: #### L AB17, [id number], [id number] ####Security Control Room Officer: UNA ARCE ([id number])[facility] [place] ([facility])[address] ALT [Catalytic activity/Vol] U/L Normal <40 [facility] Comment on above: Performed By: #### L AB17, [id number], [id number] ####Security Control Room Officer: UNA ARCE ([id number])[facility] [place] ([facility])[address] Anion gap [Moles/Vol] 10 mmol/L Normal 3-13 [facility] Comment on above: Performed By: #### L AB17, [id number], [id number] ####Security Control Room Officer: UNA ARCE ([id number])[facility] ([facility])[address] AST [Catalytic activity/Vol] 25 U/L Normal <34 [facility] Comment on above: Performed By: #### L AB17, [id number], [id number] ####Security Control Room Officer: UNA ARCE ([id number])[facility] [place] ([facility])[address] Bilirubin [Mass/Vol] 0.6 mg/dL Normal <1.2 [facility] Comment on above: Performed By: #### L AB17, [id number], QEU005 ####Security Control Room Officer: UNA ARCE ([id number])[facility] [place] ([facility])[address] Calcium [Mass/Vol] 8.1 mg/dL Low 8.8-10.0 [facility] Comment on above: Performed By: #### L AB17, GGH059, [id number] ####Security Control Room Officer: UNA ARCE ([id number])[facility] [place] ([facility])[address] Chloride [Moles/Vol] 93 mmol/L Low 98-107 [facility] Comment on above: Performed By: #### L AB17, [id number], EZQ115 ####Security Control Room Officer: UNA ARCE ([id number])[facility] [place] ([facility])[address] CO2 [Moles/Vol] 36 mmol/L High 23-31 [facility] Comment on above: Performed By: #### Gilbert AB17, [id number], NZG043 ####Security Control Room Officer: UNA ARCE ([id number])[facility] [place] ([facility])[address] Creatinine [Mass/Vol] 1.46 mg/dL High 0.72-1.25 [facility] Comment on above: Performed By: #### L AB17, QBO905, QCK697 ####Security Control Room Officer: UNA ARCE ([id number])[facility] [place] ([facility])[address] [place] [address] [place] GLOMERULAR FILTRATION RATE ML/MIN/1.73 SQ M.PREDICTED 45.7 mL/min/1.73m*2 Low >60.0 [facility] Comment on above: Result Comment: Calc ulation based on the Chronic Kidney Disease Epidemiology Collaboration (CKD-EPI) equation refit without adjustment for race Performed By: #### L AB17, [id number], [id number] ####Security Control Room Officer: UNA ARCE ([id number])[facility] [place] ([facility])[address] [place] [address] [place] Glucose [Mass/Vol] 94 mg/dL Normal 82-115 [facility] Comment on above: Performed By: #### L AB17, [id number], [id number] ####Security Control Room Officer: UNA ARCE ([id number])[facility]Angel [facility] ([facility])[address] Potassium [Moles/Vol] 3.4 mmol/L Low 3.5-5.1 [facility] Comment on above: Result Comment: [facility] potassium values may be up to 0.5 mmol/L lower than serum values. Performed By: #### L AB17, [id number], [id number] ####Security Control Room Officer: UNA ARCE ([id number])[facility] ([facility])[address] Protein [Mass/Vol] 5.8 g/dL Low 6.4-8.3 [facility] Comment on above: Performed By: #### L AB17, [id number], [id number] ####Security Control Room Officer: UNA ARCE ([id number])[facility] ([facility])[address] Sodium [Moles/Vol] 139 mmol/L Normal 136-145 [facility] Comment on above: Performed By: #### L AB17, [id number], [id number] ####Security Control Room Officer: UNA ARCE ([id number])[facility] ([facility])[address] Urea nitrogen [Mass/Vol] 37 mg/dL High 9-23 [facility] Comment on above: Performed By: #### L AB17, [id number], EUC693 ####Security Control Room Officer: UNA ARCE ([id number])[facility] ([facility])[address] Comprehensive metabolic 1998 panelon 04-13-2025 Albumin [Mass/Vol] 2.2 g/dL Low 3.4 - 4.8 g/dL [facility] ALP [Catalytic activity/Vol] 52 U/L 40 - 150 U/L [facility] ALT [Catalytic activity/Vol] U/L NINF - 40 U/L [facility] Anion gap [Moles/Vol] 10 mmol/L 3 - 13 mmol/L [facility] AST [Catalytic activity/Vol] 25 U/L NINF - 34 U/L [facility] Bilirubin [Mass/Vol] 0.6 mg/dL NINF - 1.2 mg/dL [facility] Calcium [Mass/Vol] 8.1 mg/dL Low 8.8 - 10. 0 mg/dL [facility] Chloride [Moles/Vol] 93 mmol/L Low 98 - 10 7 mmol/L [facility] CO2 [Moles/Vol] 36 mmol/L High 23 - 31 mmol/L [facility] Creatinine [Mass/Vol] 1.46 mg/dL High 0.72 - 1.25 mg/dL [facility] GFR/1.73 sq M.predicted (S/P/Bld) [Vol rate/Area] 45.7 mL/min Low - PINF [facility] Glucose [Mass/Vol] 94 mg/dL 82 - 115 mg/dL [facility] Interpretation and review of laboratory results Abnormal [facility] Potassium [Moles/Vol] 3.4 mmol/L Low 3.5 - 5.1 mmol/L [facility] Protein [Mass/Vol] 5.8 g/dL Low 6.4 - 8.3 g/dL [facility] Sodium [Moles/Vol] 139 mmol/L 136 - 145 mmol/L [facility] Urea nitrogen [Mass/Vol] 37 mg/dL High 9 - 23 mg/d L [facility] Laboratory - Chemistry and C hemistry - challengeon 04-13-2025 Base excess Calc (Bld) [Moles/Vol] 11.7 mmol/L High -3.0 - 3.0 mmol/L [facility] CO2 (Bld) [Partial pressure] 59.2 mm[Hg] High [facility] CO2 [Moles/Vol] 39.9 mmol/L High 22.0 - 28.0 mmol/L [facility] HCO3 (Bld) [Moles/Vol] 38.1 mmol/L High 21.0 - 27.0 mmol/L [facility] Oxygen (Bld) [Partial pressure] 79.2 mm[Hg] Low [facility] pH (Bld) 7.426 [pH] 7.350 - 7.450 [facility] Magnesium [Mass/Vol] 1.9 mg/dL 1.6 - 2 .6 mg/dL [facility] Laboratory - Hematology and Cell countson 04-13-2025 Hemoglobin (Bld) [Mass/Vol] 11.3 g/dL Low 13.5 - 17.5 g/dl [facility] Anisocytosis Ql (Bld) Moderate Abnormal (none) [facility] Eosinophils (Bld) [#/Vol] 0.3 10*3/uL 0.0 - 0.5 10*3/uL [facility] Eosinophils/100 WBC (Bld) 2 % 0 - 6 % [facility] Hypochromia Ql (Bld) Slight Abnormal (none) [facility] Lymphocytes (Bld) [#/Vol] 1.9 10*3/uL 1.0 - 4.3 10*3/uL [facility] Lymphocytes/100 WBC (Bld) 15 % 15 - 45 % [facility] Monocytes (Bld) [#/Vol] 0.9 10*3/uL 0.0 - 0.9 10*3/uL [facility] Monocytes/100 WBC (Bld) 7 % 5 - 13 % [facility] Myelocytes (Bld) [#/Vol] 0.1 10*3/uL High SELENE F - 0.0 10*3/uL [facility] Myelocytes/100 WBC (Bld) 1 % High NINF - 0 % [facility] Neutrophils (Bld) [#/Vol] 9.7 10*3/uL High 1.8 - 7.5 10*3/uL [facility] Poikilocytosis LM Ql (Bld) Slight Abnormal (none) [facility] RBC morphology finding Nom (Bld) abnormal [facility] Segmented neutrophils/100 WBC (Bld) 76 % 38 - 82 % [facility] Stomatocytes LM Ql (Bld) Slight Abnormal (none) [facility] - Microbiology an d Antimicrobial susceptibilityon 04-13-2025 Bacteria identified Aer cx Nom (Unsp spec) No growth at 4 days [facility] - Microbiology an d Antimicrobial susceptibilityOrdered By: Bianca Daigle on 04-13-2025 Bacteria identified Aer cx Nom (Unsp spec) No growth at 4 days [facility] MAGNESIUMon 04-13-2025 Magnesium [Mass/Vol] 1.9 mg/dL Normal 1.6-2.6 [facility] Comment on above: Result Comment: ORDE R COMMENTS:Higher values can be expected in females during menses. Performed By: #### L [id number], [id number], [id number] ####Security Control Room Officer: UNA ARCE ([id number])[facility] [place] ([facility])[id number] MANUAL DIFFERENTIAL (CELLAVI BANDAR)on 04-13-2025 ANISOCYTOSIS PRESENCE IN BLOOD BY LIGHT MICROSCOPY Moderate Abnormal (none) [facility] Comment on above: Performed By: #### L [id number], [id number] ####Security Control Room Officer: UNA ARCE ([id number])[facility] [place] ([facility])[address] BAND NEUTROPHILS TOTAL PER COUNTED LEUKOCYTES BY MANUAL COUNT Normal [facility] Comment on above: Performed By: #### L [id number], [id number] ####Security Control Room Officer: UNA ARCE ([id number])[facility] [place] ([facility])[address] BASOPHILS TOTAL PER COUNTED LEUKOCYTES BY MANUAL COUNT Normal [facility] Comment on above: Performed By: #### L [id number], [id number] ####Security Control Room Officer: UNA ARCE ([id number])[facility] [place] ([facility])[address] BLASTS TOTAL PER COUNTED LEUKOCYTES BY MANUAL COUNT Normal [facility] Comment on above: Performed By: #### L [id number], [id number] ####Security Control Room Officer: UNA ARCE ([phone])[facility] [place] (SBHLAB)[address] [place] [address] [place] EOSINOPHILS (10*3/UL) IN BLOOD-CELLAVISION 0.3 10*3/uL Normal 0.0-0.5 [facility] Comment on above: Performed By: #### L [id number], [id number] ####Security Control Room Officer: UNA ARCE ([phone])[facility] [place] (SBHL[facility])[address] [place] [address] [place] EOSINOPHILS TOTAL PER COUNTED LEUKOCYTES BY MANUAL COUNT 2 High 0-1 [facility] Comment on above: Performed By: #### L [id number], [id number] ####Security Control Room Officer: UNA ARCE ([phone])[facility] [place] (SBHLAB)[address] [place] [address] [place] EOSINOPHILS/100 LEUKOCYTES IN BLOOD-CELLAVISION 2 % Normal 0-6 [facility] Comment on above: Performed By: #### L [id number], [id number] ####Security Control Room Officer: UNA MOHRCER ([phone])[facility] [place] (SBHLAB)[address] [place] [address] [place] HYPOCHROMIA (PRESENCE) IN BLOOD BY LIGHT MICROSCOPY Slight Abnormal (none) [facility] Comment on above: Performed By: #### L [id number], [id number] ####Security Control Room Officer: UNA ARCE ([phone])[facility] (SBHLAB)[address] [place] [address] [place] LYMPHOCYTES (10*3/UL) IN BLOOD-CELLAVISION 1.9 10*3/uL Normal 1.0-4.3 [facility] Comment on above: Performed By: #### L [id number], [id number] ####Security Control Room Officer: UNA ARCE ([id number])[facility] [place] (SBHLAB)[address] [place] [address] [place] LYMPHOCYTES TOTAL PER COUNTED LEUKOCYTES BY MANUAL COUNT 15 Normal [facility] Comment on above: Performed By: #### L [id number], [id number] ####Security Control Room Officer: UNA ARCE ([phone])[facility] [place] (SBHLAB)[address] [place] [address] [place] LYMPHOCYTES/100 LEUKOCYTES IN BLOOD-CELLAVISION 15 % Normal 15-45 [facility] Comment on above: Performed By: #### L [id number], [id number] ####Security Control Room Officer: UNA ARCE ([phone])[facility] [place] (SBHLAB)[address] [place] [address] [place] METAMYELOCYTES TOTAL PER COUNTED LEUKOCYTES BY MANUAL COUNT Normal [facility] Comment on above: Performed By: #### L [id number], [id number] ####Security Control Room Officer: UNA ARCE ([phone])[facility] [place] (SBHLAB)[address] [place] [address] [place] MONOCYTES (10*3/UL) IN BLOOD-CELLAVISION 0.9 10*3/uL Normal 0.0-0.9 [facility] Comment on above: Performed By: #### L [id number], [id number] ####Security Control Room Officer: UNA ARCE ([phone])[facility] [place] (SBHLAB)[address] [place] [address] [place] MONOCYTES TOTAL PER COUNTED LEUKOCYTES BY MANUAL COUNT 7 Normal [facility] Comment on above: Performed By: #### L [id number], [id number] ####Security Control Room Officer: UNA ARCE ([phone])[facility] [place] (SBHLAB)[address] [place] [address] [place] MONOCYTES/100 LEUKOCYTES IN BLOOD-LUCIANA 7 % Normal 5-13 [facility] Comment on above: Performed By: #### L [id number], [id number] ####Security Control Room Officer: UNA ARCE ([phone])[facility] [place] (SB[facility]AB)[address] [place] [address] [place] MYELOCYTES (10*3/UL) IN BLOOD-CELLAVISION 0.1 10*3/uL High <=0.0 [facility] Comment on above: Performed By: #### L [id number], [id number] ####Security Control Room Officer: UNA ARCE ([phone])[facility] [place] (SBHLAB)[address] [place] [address] [place] MYELOCYTES COUNTED BY MANUAL COUNT 1 Normal [facility] Comment on above: Performed By: #### L [id number], [id number] ####Security Control Room Officer: UNA [phone])[facility] [place] (SBHLAB)[address] [place] [address] [place] MYELOCYTES/100 LEUKOCYTES IN BLOOD-CELLAVISION 1 % High <=0 [facility] Comment on above: Performed By: #### L [id number], [id number] ####Security Control Room Officer: UNA ARCE ([phone])[facility] [place] (SBHLAB)[address] [place] [address] [place] NEUTROPHILS TOTAL PER COUNTED LEUKOCYTES BY MANUAL COUNT 77 Normal [facility] Comment on above: Performed By: #### L [id number], [id number] ####Security Control Room Officer: UNA ARCE ([phone])[facility] [place] (SB[facility])[address] [place] [address] [place] POIKILOCYTOSIS (PRESENCE) IN BLOOD BY LIGHT MICROSCOPY Slight Abnormal (none) [facility] Comment on above: Performed By: #### L [id number], [id number] ####Security Control Room Officer: UNA ARCE ([phone])[facility] [place] (SBHLAB)[address] [place] [address] [place] PROMYELOCYTES TOTAL PER COUNTED LEUKOCYTES BY MANUAL COUNT [facility] Comment on above: Performed By: #### L [id number], [id number] ####Security Control Room Officer: UNA ARCE ([id number])[facility] [place] (SBHLAB)[address] [place] [address] [place] RBC MORPHOLOGY IN BLOOD abnormal Normal [facility] Comment on above: Performed By: #### L [id number], [id number] ####Security Control Room Officer: UNA ARCE ([phone])[facility] [place] (SBHLAB)[address] [place] [address] [place] SEGMENTED NEUTROPHILS (10*3/UL) IN BLOOD-CELLAVISION 9.7 10*3/uL High 1.8-7.5 [facility] Comment on above: Performed By: #### L [id number], [id number] ####Security Control Room Officer: UNA ARCE ([phone])[facility] [place] (SBHLAB)[address] SEGMENTED NEUTROPHILS/100 LEUKOCYTES-CE 76 % Normal 38-82 [facility] Comment on above: Performed By: #### L [id number], [id number] ####Security Control Room Officer: UNA ARCE ([phone])[facility] (SB[facility])[address] STOMATOCYTES IN BLOOD BY LIGHT MICROSCOPY Slight Abnormal (none) [facility] Comment on above: Performed By: #### L [id number], [id number] ####Security Control Room Officer: UNA ARCE ([id number])[facility] (SB[facility])[address] UNCLASSIFIED CELLS TOTAL PER COUNTED LEUKOCYTES BY MANUAL COUNT Normal [facility] Comment on above: Performed By: #### L [id number], [id number] ####Security Control Room Officer: UNA ARCE ([phone])[facility] (SBHLAB)[address] VARIANT LYMPHOCYTES TOTAL PER COUNTED LEUKOCYTES BY MANUAL COUNT Normal [facility] Comment on above: Performed By: #### L [id number], [id number] ####Security Control Room Officer: UNA ARCE ([phone])[facility] (SBHLAB)[address] Magnesium [Mass/Vol]on 04-13 [facility] No Panel Informationon 04-13 Amount Of Oxygen 2 lpm [facility] alth Interpretation and review of laboratory results Abnormal [facility] Source Of Oxygen Nasal Cannula (LPM) [facility] Interpretation and review of laboratory results Normal [facility] Eosinophils Manual 2 High 0 - 1 [facility] Interpretation and review of laboratory results Abnormal [facility] Lymphocytes Manual 15 [facility] Monocytes Manual 7 [facility] Myelocytes Manual 1 [facility] ealth Neutrophils Manual 77 [facility] PHOSPHORUSon 04-13-2025 Phosphate [Mass/Vol] 2.9 mg/dL Normal 2.3-4.7 [facility] Comment on above: Performed By: #### L AB17, [id number], [id number] ####Security Control Room Officer: UNA ARCE ([id number])[facility] [place] (SBAB)[address] [place] [address] Phosphate [Moles/Vol]on Phosphate [Mass/Vol] 2.9 mg/dL 2.3 - 4 .7 mg/dL [facility] Progress Noteon 04-13-2025 [facility] Progress [facility] Normal [facility] Progress Note Normal [facility] XR Chest Single viewon 04-13 Radiology Study observation (narrative) [facility] alth [id number] 04-12-2025 [id number] Normal [facility] [id number] Normal [facility] CBC W Auto Differential pane l (Bld)on 04-12-2025 Erythrocyte distribution width (RBC) [Ratio] 24.3 % High 11.5 - 15.0 % [facility] Hematocrit (Bld) [Volume fraction] 26.8 % Low 40.0 - 52.0 % [facility] Hemoglobin (Bld) [Mass/Vol] 7.4 g/dL Low 13.0 - 18.0 g/dL [facility] MCH (RBC) [Entitic mass] 23.1 pg Low 26. 0 - 34.0 pg [facility] MCHC (RBC) [Mass/Vol] 27.6 % Low 30.5 - 36.0 % [facility] MCV (RBC) [Entitic vol] 83.8 fL 77.0 - 99.0 fL [facility] Platelet mean volume (Bld) [Entitic vol] 9.3 fL 9.0 - 12.7 fL [facility] Platelets (Bld) [#/Vol] 272 10*3/uL 140 - 440 10*3/uL [facility] RBC (Bld) [#/Vol] 3.2 10*6/uL Low 4.40 - 5.9 0 10*6/uL [facility] WBC (Bld) [#/Vol] 12 10*3/uL High 3.6 - 10.7 10*3/uL [facility] CBC WITH AUTO DIFFERENTIALon 04-12-2025 Erythrocyte distribution width (RBC) [Ratio] 24.3 % High 11.5-15.0 [facility] Comment on above: Performed By: #### L [id number], [id number] ####Security Control Room Officer: UNA ARCE ([phone])[facility] (SBHLAB)[address] Hematocrit (Bld) [Volume fraction] 26.8 % Low 40.0-52.0 [facility] Comment on above: Performed By: #### L [id number], [id number] ####Security Control Room Officer: UNA ARCE ([phone])[facility] (SBAB)[address] Hemoglobin (Bld) [Mass/Vol] 7.4 g/dL Low 13.0-18.0 [facility] Comment on above: Performed By: #### L [id number], [id number] ####Security Control Room Officer: UNA ARCE ([id number])[facility] (SBHLAB)[address] MCH (RBC) [Entitic mass] 23.1 pg Low 26.0-34.0 [facility] Comment on above: Performed By: #### L [id number], [id number] ####Security Control Room Officer: UNA ARCE ([phone])[facility] (SBHLAB)[address] MCHC 27.6 % Low 30.5-36.0 [facility] Comment on above: Performed By: #### L [id number], [id number] ####Security Control Room Officer: UNA ARCE ([phone])[facility] (SBHLAB)[address] MCV (RBC) [Entitic vol] 83.8 fL Normal 77.0-99.0 [facility] Comment on above: Performed By: #### L [id number], [id number] ####Security Control Room Officer: UNA ARCE ([id number])[facility] [place] (SBHLAB)[address] Platelet mean volume (Bld) [Entitic vol] 9.3 fL Normal 9.0-12.7 [facility] Comment on above: Performed By: #### L [id number], [id number] ####Security Control Room Officer: UNA ARCE ([id number])[facility] [place] (SBHLAB)[address] Platelets (Bld) [#/Vol] 272 10*3/uL Normal 140-440 [facility] Comment on above: Performed By: #### L [id number], [id number] ####Security Control Room Officer: UNA ARCE ([phone])[facility] [place] (SBHLAB)[address] RBC (Bld) [#/Vol] 3.20 10*6/uL Low 4.40-5.90 [facility] Comment on above: Performed By: #### L [id number], [id number] ####Security Control Room Officer: UNA ARCE ([phone])[facility] [place] (SBHLAB)[address] WBC (Bld) [#/Vol] 12.0 10*3/uL High 3.6-10.7 [facility] Comment on above: Performed By: #### L [id number], [id number] ####Security Control Room Officer: UNA ARCE ([id number])[facility] [place] (SBHLAB)[address] COMPREHENSIVE METABOLIC PANE Anant 04-12-2025 Albumin [Mass/Vol] 2.2 g/dL Low 3.4-4.8 [facility] Comment on above: Performed By: #### L AB17, [id number], GEV357 ####Security Control Room Officer: UNA ARCE ([id number])[facility] [place] (SBHLAB)[address] [place] [address] [place] ALP [Catalytic activity/Vol] 49 U/L Normal 40-150 [facility] Comment on above: Performed By: #### L AB17, OFF739, [id number] ####Security Control Room Officer: UNA ARCE ([id number])[facility] [place] (SBHLAB)[address] [place] [address] [place] ALT [Catalytic activity/Vol] U/L Normal <40 [facility] Comment on above: Performed By: #### L AB17, LQM912, OIH040 ####Security Control Room Officer: UNA ARCE ([id number])[facility] [place] (SBHLAB)[address] Anion gap [Moles/Vol] 7 mmol/L Normal 3-13 [facility] Comment on above: Performed By: #### L AB17, QKV903, TOR292 ####Security Control Room Officer: UNA ARCE ([phone])[facility] [place] (SBHLAB)[address] AST [Catalytic activity/Vol] 19 U/L Normal <34 [facility] Comment on above: Performed By: #### L AB17, JYQ292, SHJ004 ####Security Control Room Officer: UNA ARCE ([phone])[facility] [place] (SBHLAB)[address] Bilirubin [Mass/Vol] 0.6 mg/dL Normal <1.2 [facility] Comment on above: Performed By: #### L AB17, TQN584, YFE502 ####Security Control Room Officer: UNA ARCE ([phone])[facility] [place] (SBHLAB)[address] [place] [address] [place] Calcium [Mass/Vol] 7.9 mg/dL Low 8.8-10.0 [facility] Comment on above: Performed By: #### L AB17, NOH741, NHR672 ####Security Control Room Officer: UNA ARCE ([phone])[facility] [place] (SBHLAB)[address] [place] [address] [place] Chloride [Moles/Vol] 95 mmol/L Low 98-107 [facility] Comment on above: Performed By: #### L AB17, OJL649, CJL636 ####Security Control Room Officer: UNA ARCE ([phone])[facility] (SBHLAB)[address] CO2 [Moles/Vol] 37 mmol/L High 23-31 [facility] Comment on above: Performed By: #### L AB17, BVR068, WZF315 ####Security Control Room Officer: UNA ARCE ([phone])[facility] Creatinine [Mass/Vol] 1.53 mg/dL High 0.72-1.25 [facility] Comment on above: Performed By: #### Gilbert AHN17, CDQ733, OJP567 ####Security Control Room Officer: UNA ARCE ([id number])[facility] GLOMERULAR FILTRATION RATE ML/MIN/1.73 SQ M.PREDICTED 43.2 mL/min/1.73m*2 Low >60.0 [facility] Comment on above: Result Comment: Calc ulation based on the Chronic Kidney Disease Epidemiology Collaboration (CKD-EPI) equation refit without adjustment for race Performed By: #### L 17, HMN601, RAY765 ####Security Control Room Officer: UNA ARCE ([phone])[facility] (SBHLAB)[address] Glucose [Mass/Vol] 103 mg/dL Normal 82-115 [facility] Comment on above: Performed By: #### L AB17, GTB900, WOG217 ####Security Control Room Officer: UNA ARCE ([phone])[facility] (SBHLAB)[address] Potassium [Moles/Vol] 3.7 mmol/L Normal 3.5-5.1 [facility] Comment on above: Result Comment: Plas ma potassium values may be up to 0.5 mmol/L lower than serum values. Performed By: #### L AB17, OKT144, ADS556 ####Security Control Room Officer: UNA STAUFFERMELANIE ([phone])[facility] (SBHLAB)[address] Protein [Mass/Vol] 5.6 g/dL Low 6.4-8.3 [facility] Comment on above: Performed By: #### L AB17, [id number], [id number] ####Security Control Room Officer: UNA ARCE ([phone])[facility] (SBHLAB)[address] Sodium [Moles/Vol] 139 mmol/L Normal 136-145 [facility] Comment on above: Performed By: #### L AB17, ADY585, WCR890 ####Security Control Room Officer: UNA ARCE ([id number])[facility] (SBHLAB)[address] Urea nitrogen [Mass/Vol] 40 mg/dL High 9-23 [facility] Comment on above: Performed By: #### L AB17, UPM174, ZAZ049 ####Security Control Room Officer: UNA BERMUDEZPEDRO ([id number])[facility] (SBHLAB)[address] [place] [address] Comprehensive metabolic 1998 panelon 04-12-2025 Albumin [Mass/Vol] 2.2 g/dL Low 3.4 - 4.8 g/dL [facility] ALP [Catalytic activity/Vol] 49 U/L 40 - 150 U/L [facility] ALT [Catalytic activity/Vol] U/L NINF - 40 U/L [facility] Anion gap [Moles/Vol] 7 mmol/L 3 - 13 mmol/L [facility] AST [Catalytic activity/Vol] 19 U/L NINF - 34 U/L [facility] Bilirubin [Mass/Vol] 0.6 mg/dL NINF - 1.2 mg/dL [facility] Calcium [Mass/Vol] 7.9 mg/dL Low 8.8 - 10. 0 mg/dL [facility] Chloride [Moles/Vol] 95 mmol/L Low 98 - 10 7 mmol/L [facility] CO2 [Moles/Vol] 37 mmol/L High 23 - 31 mmol/L [facility] Creatinine [Mass/Vol] 1.53 mg/dL High 0.72 - 1.25 mg/dL [facility] GFR/1.73 sq M.predicted (S/P/Bld) [Vol rate/Area] 43.2 mL/min Low - PINF [facility] Glucose [Mass/Vol] 103 mg/dL 82 - 115 mg/dL [facility] Interpretation and review of laboratory results Abnormal [facility] Potassium [Moles/Vol] 3.7 mmol/L 3.5 - 5.1 mmol/L [facility] Protein [Mass/Vol] 5.6 g/dL Low 6.4 - 8.3 g/dL [facility] Sodium [Moles/Vol] 139 mmol/L 136 - 145 mmol/L [facility] Urea nitrogen [Mass/Vol] 40 mg/dL High 9 - 23 mg/d L [facility] Consulton 04-12-2025 Consult Normal [facility] Laboratory - Chemistry and C hemistry - challengeon 04-12-2025 Magnesium [Mass/Vol] 2.2 mg/dL 1.6 - 2 .6 mg/dL [facility] Laboratory - Hematology and Cell countson 04-12-2025 Anisocytosis Ql (Bld) Slight Abnormal (none) [facility] Band form neutrophils (Bld) [#/Vol] 0.1 10*3/uL High NINF - 0.0 10*3/uL [facility] Band form neutrophils/100 WBC (Bld) 1 % High NINF - 0 % [facility] Eosinophils (Bld) [#/Vol] 0.8 10*3/uL High 0.0 - 0.5 10*3/uL [facility] Eosinophils/100 WBC (Bld) 7 % High 0 - 6 % [facility] Lymphocytes (Bld) [#/Vol] 0.7 10*3/uL Low 1.0 - 4.3 10*3/uL [facility] Lymphocytes/100 WBC (Bld) 6 % Low 15 - 45 % [facility] Monocytes (Bld) [#/Vol] 0.5 10*3/uL 0.0 - 0.9 10*3/uL [facility] Monocytes/100 WBC (Bld) 4 % Low 5 - 13 % [facility] Neutrophils (Bld) [#/Vol] 9.8 10*3/uL High 1.8 - 7.5 10*3/uL [facility] RBC morphology finding Nom (Bld) abnormal [facility] Segmented neutrophils/100 WBC (Bld) 81 % 38 - 82 % [facility] MAGNESIUMon 04-12-2025 Magnesium [Mass/Vol] 2.2 mg/dL Normal 1.6-2.6 [facility] Comment on above: Result Comment: YARELI [place] COMMENTS:Higher values can be expected in females during menses. Performed By: #### L AB17, [id number], [id number] ####Security Control Room Officer: UNA ARCE ([phone])[facility] [place] (SBHLAB)[address] MANUAL DIFFERENTIAL (CELLAVI BANDAR)on 04-12-2025 ANISOCYTOSIS PRESENCE IN BLOOD BY LIGHT MICROSCOPY Slight Abnormal (none) [facility] Comment on above: Performed By: #### L [id number], [id number] ####Security Control Room Officer: UNA ARCE ([phone])[facility] [place] (SBHLAB)[address] BAND NEUTROPHILS TOTAL PER COUNTED LEUKOCYTES BY MANUAL COUNT 1 Normal [facility] Comment on above: Performed By: #### L [id number], [id number] ####Security Control Room Officer: UNA ARCE ([phone])[facility] [place] (SBHLAB)[address] BANDS (10*3/UL) IN BLOOD-CELLAVISION 0.1 10*3/uL High <=0.0 [facility] Comment on above: Performed By: #### L [id number], [id number] ####Security Control Room Officer: UNA ARCE ([phone])[facility] [place] (SBHLAB)[address] BASOPHILS TOTAL PER COUNTED LEUKOCYTES BY MANUAL COUNT Normal [facility] Comment on above: Performed By: #### L [id number], [id number] ####Security Control Room Officer: UNA BERMUDEZPEDRO ([id number])[facility] [place] (SBHLAB)[address] [place] [address] [place] BLASTS TOTAL PER COUNTED LEUKOCYTES BY MANUAL COUNT Normal [facility] Comment on above: Performed By: #### L [id number], [id number] ####Security Control Room Officer: UNA YAZMIN ([phone])[facility] [place] (SBHLAB)[address] [place] [address] [place] EOSINOPHILS (10*3/UL) IN BLOOD-CELLAVISION 0.8 10*3/uL High 0.0-0.5 [facility] Comment on above: Performed By: #### L [id number], [id number] ####Security Control Room Officer: UNA BERMUDEZPEDRO ([phone])[facility] [place] (SBHLAB)[address] [place] [address] [place] EOSINOPHILS TOTAL PER COUNTED LEUKOCYTES BY MANUAL COUNT 7 High 0-1 [facility] Comment on above: Performed By: #### L [id number], [id number] ####Security Control Room Officer: UNA BERMUDEZPEDRO ([id number])[facility] [place] (SBHLAB)[address] [place] [address] [place] EOSINOPHILS/100 LEUKOCYTES IN BLOOD-CELLAVISION 7 % High 0-6 [facility] Comment on above: Performed By: #### L [id number], [id number] ####Security Control Room Officer: UNA BERMUDEZPEDRO ([phone])[facility] [place] (SBHLAB)[address] [place] [address] [place] LYMPHOCYTES (10*3/UL) IN BLOOD-CELLAVISION 0.7 10*3/uL Low 1.0-4.3 [facility] Comment on above: Performed By: #### L [id number], [id number] ####Security Control Room Officer: UNA BERMUDEZPEDRO ([phone])[facility] [place] (SBHLAB)[address] [place] [address] [place] LYMPHOCYTES TOTAL PER COUNTED LEUKOCYTES BY MANUAL COUNT 6 Normal [facility] Comment on above: Performed By: #### L [id number], [id number] ####Security Control Room Officer: UNA ARCE ([phone])[facility] [place] (SBHLAB)[address] [place] [address] [place] LYMPHOCYTES/100 LEUKOCYTES IN BLOOD-CELLAVISION 6 % Low 15-45 [facility] Comment on above: Performed By: #### L [id number], [id number] ####Security Control Room Officer: UNA ARCE ([phone])[facility] [place] (SBHLAB)[address] [place] [address] [place] METAMYELOCYTES TOTAL PER COUNTED LEUKOCYTES BY MANUAL COUNT Normal [facility] Comment on above: Performed By: #### L [id number], [id number] ####Security Control Room Officer: UNA BERMUDEZPEDRO ([phone])[facility] [place] ([facility])[address] [place] [address] [place] MONOCYTES (10*3/UL) IN BLOOD-CELLAVISION 0.5 10*3/uL Normal 0.0-0.9 [facility] Comment on above: Performed By: #### L [id number], [id number] ####Security Control Room Officer: UNA ARCE ([phone])[facility] [facility] [place] ([facility])[address] [place] [address] [place] MONOCYTES TOTAL PER COUNTED LEUKOCYTES BY MANUAL COUNT 4 Normal [facility] Comment on above: Performed By: #### L [id number], [id number] ####Security Control Room Officer: UNA ARCE ([id number])[facility] [place] ([facility])[address] [place] [address] [place] MONOCYTES/100 LEUKOCYTES IN BLOOD-LUCIANA 4 % Low 5-13 [facility] Comment on above: Performed By: #### L [id number], [id number] ####Security Control Room Officer: UNA STAUFFERMELANIE ([id number])[facility] [place] ([facility])[address] [place] [address] [place] MYELOCYTES COUNTED BY MANUAL COUNT Normal [facility] Comment on above: Performed By: #### L [id number], [id number] ####Security Control Room Officer: UNA YAZMIN ([id number])[facility] [place] ([facility])[address] [place] [address] [place] NEUTROPHILS BAND FORM/100 LEUKOCYTES IN BLOOD-CELLAVISI 1 % High <=0 [facility] Comment on above: Performed By: #### L [id number], [id number] ####Security Control Room Officer: UNA BERMUDEZPEDRO ([phone])[facility] [place] ([facility])[address] [place] [address] [place] NEUTROPHILS TOTAL PER COUNTED LEUKOCYTES BY MANUAL COUNT 83 Normal [facility] Comment on above: Performed By: #### L [id number], [id number] ####Security Control Room Officer: UNA BERMUDEZPEDRO ([id number])[facility] [place] ([facility])[address] [place] [address] [place] PROMYELOCYTES TOTAL PER COUNTED LEUKOCYTES BY MANUAL COUNT [facility] Comment on above: Performed By: #### L [id number], [id number] ####Security Control Room Officer: UNA BERMUDEZPEDRO ([phone])[facility] [place] ([facility])[address] [place] [address] [place] RBC MORPHOLOGY IN BLOOD abnormal Normal [facility] Comment on above: Performed By: #### L [id number], [id number] ####Security Control Room Officer: UNA STAUFFERMELANIE ([phone])[facility] [place] ([facility])[address] [place] [address] [place] SEGMENTED NEUTROPHILS (10*3/UL) IN BLOOD-CELLAVISION 9.8 10*3/uL High 1.8-7.5 [facility] Comment on above: Performed By: #### L [id number], [id number] ####Security Control Room Officer: UNA ARCE ([phone])[facility] [place] ([facility])[address] [place] [address] [place] SEGMENTED NEUTROPHILS/100 LEUKOCYTES-CE 81 % Normal 38-82 [facility] Comment on above: Performed By: #### L [id number], [id number] ####Security Control Room Officer: UNA ARCE ([phone])[facility] (SB[facility])[address] UNCLASSIFIED CELLS TOTAL PER COUNTED LEUKOCYTES BY MANUAL COUNT Normal [facility] Comment on above: Performed By: #### L [id number], [id number] ####Security Control Room Officer: UNA ARCE ([phone])[facility] ([facility] VARIANT LYMPHOCYTES TOTAL PER COUNTED LEUKOCYTES BY MANUAL COUNT Normal [facility] Comment on above: Performed By: #### L [id number], [id number] ####Security Control Room Officer: UNA ARCE ([phone])[facility] [place] (SBHLAB)[address] Magnesium [Mass/Vol]on 04-12 [facility] No Panel Informationon 04-12 Bands Manual 1 [facility] Eosinophils Manual 7 High 0 - 1 [facility] Interpretation and review of laboratory results Abnormal [facility] Lymphocytes Manual 6 [facility] Monocytes Manual 4 [facility] alth Neutrophils Manual 83 [facility] Interpretation and review of laboratory results Normal [facility] PHOSPHORUSon 04-12-2025 Phosphate [Mass/Vol] 2.7 mg/dL Normal 2.3-4.7 [facility] Comment on above: Performed By: #### L [id number], [id number], [id number] ####Security Control Room Officer: UNA ARCE ([phone])[facility] ([facility] [place] [address] [place] Phosphate [Moles/Vol]on Phosphate [Mass/Vol] 2.7 mg/dL 2.3 - 4 .7 mg/dL [facility] Progress Noteon 04-12-2025 Progress Note Normal [facility] Progress Note Normal [facility] Progress Note Normal [facility] Progress Note Normal [facility] CBC W Auto Differential pane l (Bld)on 04-11-2025 Erythrocyte distribution width (RBC) [Ratio] 24.2 % High 11.5 - 15.0 % [facility] Hematocrit (Bld) [Volume fraction] 28.9 % Low 40.0 - 52.0 % [facility] Hemoglobin (Bld) [Mass/Vol] 7.9 g/dL Low 13.0 - 18.0 g/dL [facility] Interpretation and review of laboratory results Abnormal [facility] MCH (RBC) [Entitic mass] 22.7 pg Low 26. 0 - 34.0 pg [facility] MCHC (RBC) [Mass/Vol] 27.3 % Low 30.5 - 36.0 % [facility] MCV (RBC) [Entitic vol] 83 fL 77.0 - 99.0 fL [facility] Platelet mean volume (Bld) [Entitic vol] 9.2 fL 9.0 - 12.7 fL [facility] Platelets (Bld) [#/Vol] 313 10*3/uL 140 - 440 10*3/uL [facility] RBC (Bld) [#/Vol] 3.48 10*6/uL Low 4.40 - 5.9 0 10*6/uL [facility] WBC (Bld) [#/Vol] 13.8 10*3/uL High 3.6 - 10.7 10*3/uL [facility] CBC WITH AUTO DIFFERENTIALon 04-11-2025 Erythrocyte distribution width (RBC) [Ratio] 24.2 % High 11.5-15.0 [facility] Comment on above: Performed By: #### L [id number], [id number] ####Security Control Room Officer: UNA ARCE ([phone])[facility] ([facility])[address] [place] [address] Hematocrit (Bld) [Volume fraction] 28.9 % Low 40.0-52.0 [facility] Comment on above: Performed By: #### L [id number], [id number] ####Security Control Room Officer: UNA ARCE ([id number])[facility] ([facility])[address] Hemoglobin (Bld) [Mass/Vol] 7.9 g/dL Low 13.0-18.0 [facility] Comment on above: Performed By: #### L [id number], [id number] ####Security Control Room Officer: UNA ARCE ([id number])[facility] [place] (SB[facility]AB)[address] MCH (RBC) [Entitic mass] 22.7 pg Low 26.0-34.0 [facility] Comment on above: Performed By: #### L [id number], [id number] ####Security Control Room Officer: UNA ARCE ([phone])[facility]Angel [facility] (SBHLAB)[address] MCHC 27.3 % Low 30.5-36.0 [facility] Comment on above: Performed By: #### L [id number], [id number] ####Security Control Room Officer: UNA ARCE ([phone])[facility] SANCHEZCHRISTINAN (SBHLAB)[address] MCV (RBC) [Entitic vol] 83.0 fL Normal 77.0-99.0 [facility] Comment on above: Performed By: #### L [id number], [id number] ####Security Control Room Officer: UNA ARCE ([phone])[facility] (SB[facility])[address] Platelet mean volume (Bld) [Entitic vol] 9.2 fL Normal 9.0-12.7 [facility] Comment on above: Performed By: #### L [id number], [id number] ####Security Control Room Officer: UNA ARCE ([phone])[facility] (SB[facility])[address] Platelets (Bld) [#/Vol] 313 10*3/uL Normal 140-440 [facility] Comment on above: Performed By: #### L [id number], [id number] ####Security Control Room Officer: UNA ARCE ([id number])[facility] (SBHLAB)[address] RBC (Bld) [#/Vol] 3.48 10*6/uL Low 4.40-5.90 [facility] Comment on above: Performed By: #### L [id number], [id number] ####Security Control Room Officer: UNA ARCE ([phone])[facility]ENTERAngel [place] (SBHLAB)[address] WBC (Bld) [#/Vol] 13.8 10*3/uL High 3.6-10.7 [facility] Comment on above: Performed By: #### L [id number], [id number] ####Security Control Room Officer: UNA ARCE ([phone])[facility]Angel [place]ASHIR[place] (SBHLAB)[address] COMPREHENSIVE METABOLIC PANE Anant 04-11-2025 Albumin [Mass/Vol] 2.4 g/dL Low 3.4-4.8 [facility] Comment on above: Performed By: #### L AB17, [id number], [id number] ####Security Control Room Officer: UNA ARCE ([phone])[facility] [place] (SBHLAB)[address] ALP [Catalytic activity/Vol] 53 U/L Normal 40-150 [facility] Comment on above: Performed By: #### L AB17, [id number], [id number] ####Security Control Room Officer: UNA ARCE ([phone])[facility] [place] (SBHLAB)[address] ALT [Catalytic activity/Vol] U/L Normal <40 [facility] Comment on above: Performed By: #### L AB17, [id number], [id number] ####Security Control Room Officer: UNA ARCE ([phone])[facility]ENTERAngel SANCHEZLEA [facility] MED[facility] CENTERMarisol (SBHLAB)[address] Anion gap [Moles/Vol] 10 mmol/L Normal 3-13 [facility] Comment on above: Performed By: #### L AB17, [id number], [id number] ####Security Control Room Officer: UNA ARCE ([phone])[facility] [place] (SBHLAB)[address] [place] [address] [place] AST [Catalytic activity/Vol] 18 U/L Normal <34 [facility] Comment on above: Performed By: #### L AB17, [id number], HEG722 ####Security Control Room Officer: UNA ARCE ([id number])[facility]Angel BASHIRN (SBHLAB)[address] Bilirubin [Mass/Vol] 0.7 mg/dL Normal <1.2 [facility] Comment on above: Performed By: #### L AB17, [id number], VSV327 ####Security Control Room Officer: UNA ARCE ([phone])[facility] [place]N (SBHLAB)[address] Calcium [Mass/Vol] 8.1 mg/dL Low 8.8-10.0 [facility] Comment on above: Performed By: #### L AB17, [id number], [id number] ####Security Control Room Officer: UAN ARCE ([phone])[facility] [place] (SBHLAB)[address] [place] [address] [place] Chloride [Moles/Vol] 94 mmol/L Low 98-107 [facility] Comment on above: Performed By: #### L AB17, [id number], [id number] ####Security Control Room Officer: UNA ARCE ([id number])[facility] [place] (SBHLAB)[address] [place] [address] [place] CO2 [Moles/Vol] 35 mmol/L High 23-31 [facility] Comment on above: Performed By: #### L AB17, [id number], EGH893 ####Security Control Room Officer: UNA ARCE ([id number])[facility] [place] (SB[facility])[address] [place] [address] [place] Creatinine [Mass/Vol] 1.55 mg/dL High 0.72-1.25 [facility] Comment on above: Performed By: #### L AB17, [id number], OFP135 ####Security Control Room Officer: UNA ARCE ([phone])[facility]Angel [facility] (SBHLAB)[address] GLOMERULAR FILTRATION RATE ML/MIN/1.73 SQ M.PREDICTED 42.5 mL/min/1.73m*2 Low >60.0 [facility] Comment on above: Result Comment: Calc ulation based on the Chronic Kidney Disease Epidemiology Collaboration (CKD-EPI) equation refit without adjustment for race Performed By: #### L AB17, [id number], RYW455 ####Security Control Room Officer: UNA ARCE ([phone])[facility] (SBHLAB)[address] Glucose [Mass/Vol] 103 mg/dL Normal 82-115 [facility] Comment on above: Performed By: #### L AB17, RSM496, [id number] ####Security Control Room Officer: UNA ARCE ([phone])[facility] (SBHLAB)[address] Potassium [Moles/Vol] 3.6 mmol/L Normal 3.5-5.1 [facility] Comment on above: Result Comment: [facility] potassium values may be up to 0.5 mmol/L lower than serum values. Performed By: #### L AB17, [id number], TNE170 ####Security Control Room Officer: UNA ARCE ([phone])[facility] (SBHLAB)[address] [place] [address] [place] Protein [Mass/Vol] 6.1 g/dL Low 6.4-8.3 [facility] Comment on above: Performed By: #### L AB17, [id number], OZB510 ####Security Control Room Officer: UNA ARCE ([phone])[facility] (SBHL[facility])[address] Sodium [Moles/Vol] 139 mmol/L Normal 136-145 [facility] Comment on above: Performed By: #### L AB17, MAB354, UPB510 ####Security Control Room Officer: UNA ARCE ([phone])[facility] (SBHL[facility])[address] Urea nitrogen [Mass/Vol] 36 mg/dL High 9-23 [facility] Comment on above: Performed By: #### L AB17, [id number], [id number] ####Security Control Room Officer: UNA ARCE ([phone])[facility] [place] (SBHLAB)[address] Comprehensive metabolic 1998 panelon 04-11-2025 Albumin [Mass/Vol] 2.4 g/dL Low 3.4 - 4.8 g/dL [facility] ALP [Catalytic activity/Vol] 53 U/L 40 - 150 U/L [facility] ALT [Catalytic activity/Vol] U/L NINF - 40 U/L [facility] Anion gap [Moles/Vol] 10 mmol/L 3 - 13 mmol/L [facility] AST [Catalytic activity/Vol] 18 U/L [facility] - [facility] U/L [facility] Bilirubin [Mass/Vol] 0.7 mg/dL NINF - 1.2 mg/dL [facility] Calcium [Mass/Vol] 8.1 mg/dL Low 8.8 - 10. 0 mg/dL [facility] Chloride [Moles/Vol] 94 mmol/L Low 98 - 10 7 mmol/L [facility] CO2 [Moles/Vol] 35 mmol/L High 23 - 31 mmol/L [facility] Creatinine [Mass/Vol] 1.55 mg/dL High 0.72 - 1.25 mg/dL [facility] GFR/1.73 sq M.predicted (S/P/Bld) [Vol rate/Area] 42.5 mL/min Low - PINF [facility] Glucose [Mass/Vol] 103 mg/dL 82 - 115 mg/dL [facility] Interpretation and review of laboratory results Abnormal [facility] Potassium [Moles/Vol] 3.6 mmol/L 3.5 - 5.1 mmol/L [facility] Protein [Mass/Vol] 6.1 g/dL Low 6.4 - 8.3 g/dL [facility] Sodium [Moles/Vol] 139 mmol/L 136 - 145 mmol/L [facility] Urea nitrogen [Mass/Vol] 36 mg/dL High 9 - 23 mg/d L [facility] Laboratory - Chemistry and C hemistry - challengeon 04-11-2025 Magnesium [Mass/Vol] 1.7 mg/dL 1.6 - 2 .6 mg/dL [facility] Laboratory - Hematology and Cell countson 04-11-2025 Anisocytosis Ql (Bld) Moderate Abnormal (none) [facility] Basophilic stippling LM Ql (Bld) Slight Abnormal (none) [facility] Basophils (Bld) [#/Vol] 0.1 10*3/uL 0.0 - 0.2 10*3/uL [facility] Basophils/100 WBC (Bld) 1 % 0 - 2 % [facility] Dacrocytes LM Ql (Bld) Rare Abnormal (none) [facility] Eosinophils (Bld) [#/Vol] 0.1 10*3/uL 0.0 - 0.5 10*3/uL [facility] Eosinophils/100 WBC (Bld) 1 % 0 - 6 % [facility] Hypochromia Ql (Bld) Slight Abnormal (none) [facility] Lymphocytes (Bld) [#/Vol] 1.4 10*3/uL 1.0 - 4.3 10*3/uL [facility] Lymphocytes/100 WBC (Bld) 10 % Low 15 - 45 % [facility] Monocytes (Bld) [#/Vol] 1.8 10*3/uL High 0.0 - 0.9 10*3/uL [facility] Monocytes/100 WBC (Bld) 13 % 5 - 13 % [facility] Neutrophils (Bld) [#/Vol] 10.5 10*3/uL High 1.8 - 7.5 10*3/uL [facility] Ovalocytes LM Ql (Bld) Slight Abnormal (none) [facility] Poikilocytosis LM Ql (Bld) Slight Abnormal (none) [facility] Polychromasia LM Ql (Bld) Slight Abnormal (none) [facility] RBC morphology finding Nom (Bld) abnormal [facility] Segmented neutrophils/100 WBC (Bld) 76 % 38 - 82 % [facility] Stomatocytes LM Ql (Bld) Slight Abnormal (none) [facility] Target cells LM Ql (Bld) Slight Abnormal (none) [facility] MAGNESIUMon 04-11-2025 Magnesium [Mass/Vol] 1.7 mg/dL Normal 1.6-2.6 [facility] Comment on above: Result Comment: ORDE R COMMENTS:Higher values can be expected in females during menses. Performed By: #### L AB17, [id number], [id number] ####Security Control Room Officer: UNA ARCE ([phone])[facility] [place] ([facility])[address] MANUAL DIFFERENTIAL (CELLAVI BANDAR)on 04-11-2025 ANISOCYTOSIS PRESENCE IN BLOOD BY LIGHT MICROSCOPY Moderate Abnormal (none) [facility] Comment on above: Performed By: #### L [id number], [id number] ####Security Control Room Officer: UNA ARCE ([phone])[facility] [place] ([facility])[address] BAND NEUTROPHILS TOTAL PER COUNTED LEUKOCYTES BY MANUAL COUNT Normal [facility] Comment on above: Performed By: #### L [id number], [id number] ####Security Control Room Officer: UNA ARCE ([phone])[facility] [place] ([facility])[address] BASOPHILIC STIPPLING PRESENCE IN BLOOD BY LIGHT MICROSCOPY Slight Abnormal (none) [facility] Comment on above: Performed By: #### L [id number], [id number] ####Security Control Room Officer: UNA ARCE ([phone])[facility] [place] ([facility])[address] BASOPHILS (10*3/UL) IN BLOOD-CELLAVISION 0.1 10*3/uL Normal 0.0-0.2 [facility] Comment on above: Performed By: #### L [id number], [id number] ####Security Control Room Officer: UAN ARCE ([phone])[facility] [place] ([facility])[address] BASOPHILS TOTAL PER COUNTED LEUKOCYTES BY MANUAL COUNT 1 Normal [facility] Comment on above: Performed By: #### L [id number], [id number] ####Security Control Room Officer: UNA ARCE ([id number])[facility] [place] ([facility])[address] [place] [address] [place] BASOPHILS/100 LEUKOCYTES IN BLOOD-CELLAVISION 1 % Normal 0-2 [facility] Comment on above: Performed By: #### L [id number], [id number] ####Security Control Room Officer: UNA ARCE ([phone])[facility] [place] ([facility])[address] [place] [address] [place] BLASTS TOTAL PER COUNTED LEUKOCYTES BY MANUAL COUNT Normal [facility] Comment on above: Performed By: #### L [id number], [id number] ####Security Control Room Officer: UNA MOHRCER ([phone])[facility] [place] ([facility])[address] [place] [address] [place] DACROCYTES PRESENCE IN BLOOD BY LIGHT MICROSCOPY Rare Abnormal (none) [facility] Comment on above: Performed By: #### L [id number], [id number] ####Security Control Room Officer: UNA ARCE ([id number])[facility] [place] ([facility])[address] [place] [address] [place] EOSINOPHILS (10*3/UL) IN BLOOD-CELLAVISION 0.1 10*3/uL Normal 0.0-0.5 [facility] Comment on above: Performed By: #### L [id number], [id number] ####Security Control Room Officer: UNA ARCE ([id number])[facility] [place] ([facility])[address] [place] [address] [place] EOSINOPHILS TOTAL PER COUNTED LEUKOCYTES BY MANUAL COUNT 1 Normal 0-1 [facility] Comment on above: Performed By: #### L [id number], [id number] ####Security Control Room Officer: UNA ARCE ([phone])[facility] [place] ([facility])[address] [place] [address] [place] EOSINOPHILS/100 LEUKOCYTES IN BLOOD-CELLAVISION 1 % Normal 0-6 [facility] Comment on above: Performed By: #### L [id number], [id number] ####Security Control Room Officer: UNA ARCE ([phone])[facility] [place] ([facility])[address] HYPOCHROMIA (PRESENCE) IN BLOOD BY LIGHT MICROSCOPY Slight Abnormal (none) [facility] Comment on above: Performed By: #### L [id number], [id number] ####Security Control Room Officer: UNA ARCE ([id number])[facility] [place] ([facility])[address] [place] [address] [place] LYMPHOCYTES (10*3/UL) IN BLOOD-CELLAVISION 1.4 10*3/uL Normal 1.0-4.3 [facility] Comment on above: Performed By: #### L [id number], [id number] ####Security Control Room Officer: UNA ARCE ([id number])[facility] [place] ([facility])[address] LYMPHOCYTES TOTAL PER COUNTED LEUKOCYTES BY MANUAL COUNT 10 Normal [facility] Comment on above: Performed By: #### L [id number], [id number] ####Security Control Room Officer: UNA ARCE ([id number])[facility] (SBHLAB)[address] [place] [address] [place] LYMPHOCYTES/100 LEUKOCYTES IN BLOOD-CELLAVISION 10 % Low 15-45 [facility] Comment on above: Performed By: #### L [id number], [id number] ####Security Control Room Officer: UNA ARCE ([phone])[facility] (SB[facility])[address] [place] [address] [place] METAMYELOCYTES TOTAL PER COUNTED LEUKOCYTES BY MANUAL COUNT Normal [facility] Comment on above: Performed By: #### L [id number], [id number] ####Security Control Room Officer: UNA ARCE ([phone])[facility] [place] ([facility])[address] [place] [address] [place] MONOCYTES (10*3/UL) IN BLOOD-CELLAVISION 1.8 10*3/uL High 0.0-0.9 [facility] Comment on above: Performed By: #### L [id number], [id number] ####Security Control Room Officer: UNA ARCE ([phone])[facility] [place] ([facility])[address] [place] [address] [place] MONOCYTES TOTAL PER COUNTED LEUKOCYTES BY MANUAL COUNT 13 Normal [facility] Comment on above: Performed By: #### L [id number], [id number] ####Security Control Room Officer: UNA MOHRCER ([id number])[facility] [place] ([facility])[address] [place] [address] [place] MONOCYTES/100 LEUKOCYTES IN BLOOD-LUCIANA 13 % Normal 5-13 [facility] Comment on above: Performed By: #### L [id number], [id number] ####Security Control Room Officer: UNA MOHRCER ([id number])[facility] [place] ([facility])[address] MYELOCYTES COUNTED BY MANUAL COUNT Normal [facility] Comment on above: Performed By: #### L [id number], [id number] ####Security Control Room Officer: UNA ARCE ([id number])[facility] [place] ([facility])[address] [place] [address] [place] NEUTROPHILS TOTAL PER COUNTED LEUKOCYTES BY MANUAL COUNT 79 Normal [facility] Comment on above: Performed By: #### L [id number], [id number] ####Security Control Room Officer: UNA ARCE ([phone])[facility] [place] ([facility])[address] [place] [address] [place] OVALOCYTES PRESENCE IN BLOOD BY LIGHT MICROSCOPY Slight Abnormal (none) [facility] Comment on above: Performed By: #### L [id number], [id number] ####Security Control Room Officer: UNA MOHRCER ([id number])[facility] [place] ([facility])[address] [place] [address] [place] POIKILOCYTOSIS (PRESENCE) IN BLOOD BY LIGHT MICROSCOPY Slight Abnormal (none) [facility] Comment on above: Performed By: #### L [id number], [id number] ####Security Control Room Officer: UNA ARCE ([phone])[facility] [place] (SB[facility]AB)[address] [place] [address] [place] POLYCHROMASIA IN BLOOD BY LIGHT MICROSCOPY Slight Abnormal (none) [facility] Comment on above: Performed By: #### L [id number], [id number] ####Security Control Room Officer: UNA ARCE ([phone])[facility] [place] (SBHLAB)[address] [place] [address] [place] PROMYELOCYTES TOTAL PER COUNTED LEUKOCYTES BY MANUAL COUNT Normal [facility] Comment on above: Performed By: #### L [id number], [id number] ####Security Control Room Officer: UNA ARCE ([id number])[facility] [place] (SBHLAB)[address] [place] [address] [place] RBC MORPHOLOGY IN BLOOD abnormal Normal S [facility] Comment on above: Performed By: #### L [id number], [id number] ####Security Control Room Officer: UNA ARCE ([phone])[facility] [place] (SBHLAB)[address] [place] [address] [place] SEGMENTED NEUTROPHILS (10*3/UL) IN BLOOD-CELLAVISION 10.5 10*3/uL High 1.8-7.5 [facility] Comment on above: Performed By: #### L [id number], [id number] ####Security Control Room Officer: UNA ARCE ([id number])[facility] [place] (SBHLAB)[address] [place] [address] [place] SEGMENTED NEUTROPHILS/100 LEUKOCYTES-CE 76 % Normal 38-82 [facility] Comment on above: Performed By: #### L [id number], [id number] ####Security Control Room Officer: UNA ARCE ([phone])[facility] [place] (SBHLAB)[address] [place] [address] [place] STOMATOCYTES IN BLOOD BY LIGHT MICROSCOPY Slight Abnormal (none) [facility] Comment on above: Performed By: #### L [id number], [id number] ####Security Control Room Officer: UNA ARCE ([id number])[facility] [place] (SBHLAB)[address] TARGET CELLS IN BLOOD BY LIGHT MICROSCOPY Slight Abnormal (none) [facility] Comment on above: Performed By: #### L [id number], [id number] ####Security Control Room Officer: UNA ARCE ([phone])[facility] [place] (SBHLAB)[address] UNCLASSIFIED CELLS TOTAL PER COUNTED LEUKOCYTES BY MANUAL COUNT Normal [facility] Comment on above: Performed By: #### L [id number], [id number] ####Security Control Room Officer: UNA ARCE ([phone])[facility] [place] (SBHLAB)[address] VARIANT LYMPHOCYTES TOTAL PER COUNTED LEUKOCYTES BY MANUAL COUNT Normal [facility] Comment on above: Performed By: #### L [id number], [id number] ####Security Control Room Officer: UNA ARCE ([phone])[facility] (SBHLAB)[address] Magnesium [Mass/Vol]on 04-11 [facility] No Panel Informationon 04-11 Basophils Manual 1 [facility] He alth Eosinophils Manual 1 0 - 1 [facility] Interpretation and review of laboratory results Abnormal [facility] Lymphocytes Manual 10 [facility] Monocytes Manual 13 [facility] alth Neutrophils Manual 79 [facility] Interpretation and review of laboratory results Normal [facility] PHOSPHORUSon 04-11-2025 Phosphate [Mass/Vol] 2.5 mg/dL Normal 2.3-4.7 [facility] Comment on above: Performed By: #### L [id number], [id number], [id number] ####Security Control Room Officer: UNA ARCE ([phone])[facility] LAURACHRISTINAN (SBHLAB)[address] [place] [address] [place] Phosphate [Moles/Vol]on Phosphate [Mass/Vol] 2.5 mg/dL 2.3 - 4 .7 mg/dL [facility] Progress Noteon 04-11-2025 Progress Note Normal [facility] Normal [facility] Progress Note Normal [facility] Progress Note Normal [facility] XR Chest Single viewon 04-11 [facility] Radiology Study observation (narrative) Lynette ander XR Chest Single viewOrdered By: Katalina Corona on 04-11-2025 [facility] Work Phone: [phone] 04-10-2025 [id number] Normal [facility] CBC W Auto Differential pane l (Bld)on 04-10-2025 Erythrocyte distribution width (RBC) [Ratio] 22.9 % High 11.5 - 15.0 % [facility] Hematocrit (Bld) [Volume fraction] 26.1 % Low 40.0 - 52.0 % [facility] Hemoglobin (Bld) [Mass/Vol] 7.2 g/dL Low 13.0 - 18.0 g/dL [facility] Interpretation and review of laboratory results Abnormal [facility] MCH (RBC) [Entitic mass] 22.6 pg Low 26. 0 - 34.0 pg [facility] MCHC (RBC) [Mass/Vol] 27.6 % Low 30.5 - 36.0 % [facility] MCV (RBC) [Entitic vol] 82.1 fL 77.0 - 99.0 fL [facility] Platelet mean volume (Bld) [Entitic vol] 9.1 fL 9.0 - 12.7 fL [facility] Platelets (Bld) [#/Vol] 294 10*3/uL 140 - 440 10*3/uL [facility] RBC (Bld) [#/Vol] 3.18 10*6/uL Low 4.40 - 5.9 0 10*6/uL [facility] WBC (Bld) [#/Vol] 12.4 10*3/uL High 3.6 - 10.7 10*3/uL [facility] CBC WITH AUTO DIFFERENTIALon 04-10-2025 Erythrocyte distribution width (RBC) [Ratio] 22.9 % High 11.5-15.0 [facility] Comment on above: Performed By: #### L [id number], [id number] ####Security Control Room Officer: UNA ARCE ([id number])[facility] [place] (SBAB)[address] Hematocrit (Bld) [Volume fraction] 26.1 % Low 40.0-52.0 [facility] Comment on above: Performed By: #### L [id number], [id number] ####Security Control Room Officer: UNA ARCE ([phone])[place] (SBHLAB)[address] Hemoglobin (Bld) [Mass/Vol] 7.2 g/dL Low 13.0-18.0 [facility] Comment on above: Performed By: #### L [id number], [id number] ####Security Control Room Officer: UNA ARCE ([id number])[facility] [place] (SBHLAB)[address] MCH (RBC) [Entitic mass] 22.6 pg Low 26.0-34.0 [facility] Comment on above: Performed By: #### L [id number], [id number] ####Security Control Room Officer: UNA ARCE ([phone])[facility] [place] (SBHLAB)[address] MCHC 27.6 % Low 30.5-36.0 [facility] Comment on above: Performed By: #### L [id number], [id number] ####Security Control Room Officer: UNA ARCE ([phone])[facility] [place] (SBHLAB)[address] MCV (RBC) [Entitic vol] 82.1 fL Normal 77.0-99.0 [facility] Comment on above: Performed By: #### L [id number], [id number] ####Security Control Room Officer: UNA ARCE ([phone])[facility]Angel [facility]ENTERMarisol (SBHLAB)[address] Platelet mean volume (Bld) [Entitic vol] 9.1 fL Normal 9.0-12.7 [facility] Comment on above: Performed By: #### L [id number], [id number] ####Security Control Room Officer: UNA ARCE ([phone])LYNETTE SANCHEZCHRISTINAN (SBHLAB)[address] Platelets (Bld) [#/Vol] 294 10*3/uL Normal 140-440 [facility] Comment on above: Performed By: #### L [id number], [id number] ####Security Control Room Officer: UNA ARCE ([phone])[facility] [place] (SBHLAB)[address] RBC (Bld) [#/Vol] 3.18 10*6/uL Low 4.40-5.90 [facility] Comment on above: Performed By: #### L [id number], [id number] ####Security Control Room Officer: UNA ARCE ([id number])[place] (SBHLAB)[address] WBC (Bld) [#/Vol] 12.4 10*3/uL High 3.6-10.7 [facility] Comment on above: Performed By: #### L [id number], [id number] ####Security Control Room Officer: UNA ARCE ([id number])[facility] [place] (SBHLAB)[address] COMPREHENSIVE METABOLIC PANE Anant 04-10-2025 Albumin [Mass/Vol] 2.2 g/dL Low 3.4-4.8 [facility] Comment on above: Performed By: #### L ABTerrance, LAB17, [id number] ####Security Control Room Officer: UNA ARCE ([phone])[facility] [place] (SBHLAB)[address] ALP [Catalytic activity/Vol] 50 U/L Normal 40-150 [facility] Comment on above: Performed By: #### L AB113, LAB17, [id number] ####Security Control Room Officer: UNA AREC ([phone])[facility] [place] (SBHLAB)[address] ALT [Catalytic activity/Vol] U/L Normal <40 [facility] Comment on above: Performed By: #### L ABTerrance, LAB17, [id number] ####Security Control Room Officer: UNA ARCE ([phone])[facility] [place] (SBHLAB)[address] Anion gap [Moles/Vol] 12 mmol/L Normal 3-13 [facility] Comment on above: Performed By: #### [place] ABTerrance, LAB17, [id number] ####Security Control Room Officer: UNA ARCE ([phone])[facility] [place] (SBHLAB)[address] AST [Catalytic activity/Vol] 16 U/L Normal <34 [facility] Comment on above: Performed By: #### [place] ABTerrance, LAB17, [id number] ####Security Control Room Officer: UNA ARCE ([id number])[facility] [place] (SBHLAB)[address] Bilirubin [Mass/Vol] 0.6 mg/dL Normal <1.2 [facility] Comment on above: Performed By: #### [place] RAMSEY, LAB17, [id number] ####Security Control Room Officer: UNA ARCE ([id number])[facility] [place] (SBHLAB)[address] Calcium [Mass/Vol] 8.0 mg/dL Low 8.8-10.0 [facility] Comment on above: Performed By: #### [place] RAMSEY, LAB17, [id number] ####Security Control Room Officer: UNA ARCE ([phone])[facility] [place] (SBHLAB)[address] [place] [address] [place] Chloride [Moles/Vol] 95 mmol/L Low 98-107 [facility] Comment on above: Performed By: #### L ABTerrance, LAB17, [id number] ####Security Control Room Officer: UNA ARCE ([phone])[facility] [place] (SBHLAB)[address] [place] [address] [place] CO2 [Moles/Vol] 35 mmol/L High 23-31 [facility] Comment on above: Performed By: #### L AB113, LAB17, [id number] ####Security Control Room Officer: UNA ARCE ([phone])[facility]Angel [place] (SBHLAB)[address] Creatinine [Mass/Vol] 1.65 mg/dL High 0.72-1.25 [facility] Comment on above: Performed By: #### L ABTerrance, LAB17, [id number] ####Security Control Room Officer: UNA ARCE ([phone])[facility] [place] (SBHLAB)[address] GLOMERULAR FILTRATION RATE ML/MIN/1.73 SQ M.PREDICTED 39.4 mL/min/1.73m*2 Low >60.0 [facility] Comment on above: Result Comment: Calc ulation based on the Chronic Kidney Disease Epidemiology Collaboration (CKD-EPI) equation refit without adjustment for race Performed By: #### [place] ABTerrance, LAB17, [id number] ####Security Control Room Officer: UNA ARCE ([phone])[facility] [place] (SBHLAB)[address] Glucose [Mass/Vol] 98 mg/dL Normal 82-115 [facility] Comment on above: Performed By: #### [place] AB113, LAB17, [id number] ####Security Control Room Officer: UNA ARCE ([phone])[facility] [place]CHRISTIN[place] (SBHLAB)[address] [place] [address] [place] Potassium [Moles/Vol] 3.2 mmol/L Low 3.5-5.1 [facility] Comment on above: Result Comment: [facility] potassium values may be up to 0.5 mmol/L lower than serum values. Performed By: #### L AB113, LAB17, [id number] ####Security Control Room Officer: UNA ARCE ([phone])[facility] [place] (SBHLAB)[address] Protein [Mass/Vol] 5.5 g/dL Low 6.4-8.3 [facility] Comment on above: Performed By: #### L AB113, LAB17, [id number] ####Security Control Room Officer: UNA YAZMIN ([phone])[facility] [place] (SBHLAB)[address] Sodium [Moles/Vol] 142 mmol/L Normal 136-145 [facility] Comment on above: Performed By: #### [place] ABTerrance, LAB17, [id number] ####Security Control Room Officer: UNA YAZMIN ([phone])[facility]LE[facility]ERN (SBHLAB)[address] Urea nitrogen [Mass/Vol] 32 mg/dL High 9-23 [facility] Comment on above: Performed By: #### [place] RAMSEY, LAB17, [id number] ####Security Control Room Officer: UNA ARCE ([phone])[facility]Angel [facility] (SBHLAB)[address] Comprehensive metabolic 1998 panelon 04-10-2025 Albumin [Mass/Vol] 2.2 g/dL Low 3.4 - 4.8 g/dL [facility] ALP [Catalytic activity/Vol] 50 U/L 40 - 150 U/L [facility] ALT [Catalytic activity/Vol] U/L [facility] U/L [facility] Anion gap [Moles/Vol] 12 mmol/L 3 - 13 mmol/L [facility] AST [Catalytic activity/Vol] 16 U/L [facility] - 34 U/L [facility] Bilirubin [Mass/Vol] 0.6 mg/dL NINF - 1.2 mg/dL [facility] Calcium [Mass/Vol] 8 mg/dL Low 8.8 - 10. 0 mg/dL [facility] Chloride [Moles/Vol] 95 mmol/L Low 98 - 10 7 mmol/L [facility] CO2 [Moles/Vol] 35 mmol/L High 23 - 31 mmol/L [facility] Creatinine [Mass/Vol] 1.65 mg/dL High 0.72 - 1.25 mg/dL [facility] GFR/1.73 sq M.predicted (S/P/Bld) [Vol rate/Area] 39.4 mL/min Low - PINF [facility] Glucose [Mass/Vol] 98 mg/dL 82 - 115 mg/dL [facility] Interpretation and review of laboratory results Abnormal [facility] Potassium [Moles/Vol] 3.2 mmol/L Low 3.5 - 5.1 mmol/L [facility] Protein [Mass/Vol] 5.5 g/dL Low 6.4 - 8.3 g/dL [facility] Sodium [Moles/Vol] 142 mmol/L 136 - 145 mmol/L [facility] Urea nitrogen [Mass/Vol] 32 mg/dL High 9 - 23 mg/d L [facility] Laboratory - Chemistry and C hemistry - challengeon 04-10-2025 Magnesium [Mass/Vol] 1.7 mg/dL 1.6 - 2 .6 mg/dL [facility] Laboratory - Hematology and Cell countson 04-10-2025 Anisocytosis Ql (Bld) Slight Abnormal (none) [facility] Band form neutrophils (Bld) [#/Vol] 0.2 10*3/uL High NINF - 0.0 10*3/uL [facility] Band form neutrophils/100 WBC (Bld) 2 % High NINF - 0 % [facility] Basophils (Bld) [#/Vol] 0.5 10*3/uL High 0.0 - 0.2 10*3/uL [facility] Basophils/100 WBC (Bld) 4 % High 0 - 2 % [facility] Eosinophils (Bld) [#/Vol] 0.5 10*3/uL 0.0 - 0.5 10*3/uL [facility] Eosinophils/100 WBC (Bld) 4 % 0 - 6 % [facility] Lymphocytes (Bld) [#/Vol] 0.9 10*3/uL Low 1.0 - 4.3 10*3/uL [facility] Lymphocytes/100 WBC (Bld) 7 % Low 15 - 45 % [facility] Monocytes (Bld) [#/Vol] 0.5 10*3/uL 0.0 - 0.9 10*3/uL [facility] Monocytes/100 WBC (Bld) 4 % Low 5 - 13 % [facility] Myelocytes (Bld) [#/Vol] 0.1 10*3/uL High SELENE F - 0.0 10*3/uL [facility] Myelocytes/100 WBC (Bld) 1 % High NINF - 0 % [facility] Neutrophils (Bld) [#/Vol] 9.9 10*3/uL High 1.8 - 7.5 10*3/uL [facility] Poikilocytosis LM Ql (Bld) Slight Abnormal (none) [facility] RBC morphology finding Nom (Bld) abnormal [facility] Segmented neutrophils/100 WBC (Bld) 78 % 38 - 82 % [facility] Stomatocytes LM Ql (Bld) Moderate Abnormal (none) [facility] MAGNESIUMon 04-10-2025 Magnesium [Mass/Vol] 1.7 mg/dL Normal 1.6-2.6 [facility] Comment on above: Result Comment: YARELI R COMMENTS:Higher values can be expected in females during menses. Performed By: #### L AB113, LAB17, [id number] ####Security Control Room Officer: UNA ARCE ([phone])[facility] ([facility])[address] [place] [address] MANUAL DIFFERENTIAL (CELLAVI BANDAR)on 04-10-2025 ANISOCYTOSIS PRESENCE IN BLOOD BY LIGHT MICROSCOPY Slight Abnormal (none) [facility] Comment on above: Performed By: #### L [id number], [id number] ####Security Control Room Officer: UNA ARCE ([phone])[facility] [place] [address] BAND NEUTROPHILS TOTAL PER COUNTED LEUKOCYTES BY MANUAL COUNT 2 Normal [facility] Comment on above: Performed By: #### L [id number], [id number] ####Security Control Room Officer: UNA ARCE ([phone])[facility] ([facility])[address] [place] [address] [place] BANDS (10*3/UL) IN BLOOD-CELLAVISION 0.2 10*3/uL High <=0.0 [facility] Comment on above: Performed By: #### L [id number], [id number] ####Security Control Room Officer: UNA ARCE ([phone])[facility] (SB[facility])[address] [place] [address] [place] BASOPHILS (10*3/UL) IN BLOOD-CELLAVISION 0.5 10*3/uL High 0.0-0.2 [facility] Comment on above: Performed By: #### L [id number], [id number] ####Security Control Room Officer: UNA ARCE ([phone])[facility] [place] (SBHLAB)[address] [place] [address] [place] BASOPHILS TOTAL PER COUNTED LEUKOCYTES BY MANUAL COUNT 4 Normal [facility] Comment on above: Performed By: #### L [id number], [id number] ####Security Control Room Officer: UNA ARCE ([id number])[facility] [place] (SBHLAB)[address] [place] [address] [place] BASOPHILS/100 LEUKOCYTES IN BLOOD-CELLAVISION 4 % High 0-2 [facility] Comment on above: Performed By: #### L [id number], [id number] ####Security Control Room Officer: UNA ARCE ([phone])[facility] [place] (SBHLAB)[address] BLASTS TOTAL PER COUNTED LEUKOCYTES BY MANUAL COUNT [facility] Comment on above: Performed By: #### L [id number], [id number] ####Security Control Room Officer: UNA ARCE ([id number])[facility] [place] (SBHLAB)[address] [place] [address] [place] EOSINOPHILS (10*3/UL) IN BLOOD-CELLAVISION 0.5 10*3/uL Normal 0.0-0.5 [facility] Comment on above: Performed By: #### L [id number], [id number] ####Security Control Room Officer: UNA ARCE ([phone])[facility] [place] (SBHLAB)[address] [place] [address] [place] EOSINOPHILS TOTAL PER COUNTED LEUKOCYTES BY MANUAL COUNT High 0-1 [facility] Comment on above: Performed By: #### L [id number], [id number] ####Security Control Room Officer: UNA ARCE ([phone])[facility] [place] (SBHLAB)[address] [place] [address] [place] EOSINOPHILS/100 LEUKOCYTES IN BLOOD-CELLAVISION 4 % Normal 0-6 [facility] Comment on above: Performed By: #### L [id number], [id number] ####Security Control Room Officer: UNA ARCE ([phone])[facility] [place] (SBHLAB)[address] LYMPHOCYTES (10*3/UL) IN BLOOD-CELLAVISION 0.9 10*3/uL Low 1.0-4.3 [facility] Comment on above: Performed By: #### L [id number], [id number] ####Security Control Room Officer: UNA ARCE ([phone])[facility] [place] (SBHLAB)[address] LYMPHOCYTES TOTAL PER COUNTED LEUKOCYTES BY MANUAL COUNT 7 Normal [facility] Comment on above: Performed By: #### L [id number], [id number] ####Security Control Room Officer: UNA ARCE ([id number])[facility] [place] (SBHLAB)[address] [place] [address] [place] LYMPHOCYTES/100 LEUKOCYTES IN BLOOD-CELLAVISION 7 % Low 15-45 [facility] Comment on above: Performed By: #### L [id number], [id number] ####Security Control Room Officer: UNA ARCE ([phone])[facility] (SBHLAB)[address] METAMYELOCYTES TOTAL PER COUNTED LEUKOCYTES BY MANUAL COUNT [facility] Comment on above: Performed By: #### L [id number], [id number] ####Security Control Room Officer: UNA ARCE ([id number])[facility] [place] (SBHLAB)[address] [place] [address] [place] MONOCYTES (10*3/UL) IN BLOOD-CELLAVISION 0.5 10*3/uL Normal 0.0-0.9 [facility] Comment on above: Performed By: #### L [id number], [id number] ####Security Control Room Officer: UNA ARCE ([phone])[facility] [place] (SBHLAB)[address] [place] [address] [place] MONOCYTES TOTAL PER COUNTED LEUKOCYTES BY MANUAL COUNT 4 Normal [facility] Comment on above: Performed By: #### L [id number], [id number] ####Security Control Room Officer: UNA ARCE ([id number])[facility] [place] (SBHLAB)[address] [place] [address] [place] MONOCYTES/100 LEUKOCYTES IN BLOOD-LUCIANA 4 % Low 5-13 [facility] Comment on above: Performed By: #### L [id number], [id number] ####Security Control Room Officer: UNA ARCE ([id number])[facility] [place] (SBHLAB)[address] [place] [address] [place] MYELOCYTES (10*3/UL) IN BLOOD-CELLAVISION 0.1 10*3/uL High <=0.0 [facility] Comment on above: Performed By: #### L [id number], [id number] ####Security Control Room Officer: UNA ARCE ([id number])[facility] [place] (SBHLAB)[address] [place] [address] [place] MYELOCYTES COUNTED BY MANUAL COUNT 1 Normal [facility] Comment on above: Performed By: #### L [id number], [id number] ####Security Control Room Officer: UNA ARCE ([id number])[facility] [place] (SBHLAB)[address] [place] [address] [place] MYELOCYTES/100 LEUKOCYTES IN BLOOD-CELLAVISION 1 % High <=0 [facility] Comment on above: Performed By: #### L [id number], [id number] ####Security Control Room Officer: UNA ARCE ([id number])[facility] [place] (SBHLAB)[address] [place] [address] [place] NEUTROPHILS BAND FORM/100 LEUKOCYTES IN BLOOD-CELLAVISI 2 % High <=0 [facility] Comment on above: Performed By: #### L [id number], [id number] ####Security Control Room Officer: UNA ARCE ([id number])[facility] [place] (SBHLAB)[address] [place] [address] [place] NEUTROPHILS TOTAL PER COUNTED LEUKOCYTES BY MANUAL COUNT 79 Normal [facility] Comment on above: Performed By: #### L [id number], [id number] ####Security Control Room Officer: UNA ARCE ([phone])[facility] [place] (SBHLAB)[address] [place] [address] [place] POIKILOCYTOSIS (PRESENCE) IN BLOOD BY LIGHT MICROSCOPY Slight Abnormal (none) [facility] Comment on above: Performed By: #### L [id number], [id number] ####Security Control Room Officer: UNA ARCE ([id number])[facility] [place] (SBHLAB)[address] PROMYELOCYTES TOTAL PER COUNTED LEUKOCYTES BY MANUAL COUNT Normal [facility] Comment on above: Performed By: #### L [id number], [id number] ####Security Control Room Officer: UNA ARCE ([phone])[facility] [place] (SBHLAB)[address] [place] [address] [place] RBC MORPHOLOGY IN BLOOD abnormal Normal [facility] Comment on above: Performed By: #### L [id number], [id number] ####Security Control Room Officer: UNA ARCE ([id number])[facility] [place] ([facility])[address] [place] [address] [place] SEGMENTED NEUTROPHILS (10*3/UL) IN BLOOD-CELLAVISION 9.9 10*3/uL High 1.8-7.5 [facility] Comment on above: Performed By: #### L [id number], [id number] ####Security Control Room Officer: UNA ARCE ([id number])[facility] [place] ([facility])[address] [place] [address] [place] SEGMENTED NEUTROPHILS/100 LEUKOCYTES-CE 78 % Normal 38-82 [facility] Comment on above: Performed By: #### L [id number], [id number] ####Security Control Room Officer: UNA ARCE ([phone])[facility] [place] (SBHLAB)[address] [place] [address] [place] STOMATOCYTES IN BLOOD BY LIGHT MICROSCOPY Moderate Abnormal (none) [facility] Comment on above: Performed By: #### L [id number], [id number] ####Security Control Room Officer: UNA ARCE ([id number])[facility]ENTERAngel [facility] (SBHLAB)[address] UNCLASSIFIED CELLS TOTAL PER COUNTED LEUKOCYTES BY MANUAL COUNT Normal [facility] Comment on above: Performed By: #### L [id number], [id number] ####Security Control Room Officer: UNA ARCE ([phone])[facility] (HLAB)[address] VARIANT LYMPHOCYTES TOTAL PER COUNTED LEUKOCYTES BY MANUAL COUNT Normal [facility] Comment on above: Performed By: #### L [id number], [id number] ####Security Control Room Officer: UNA ARCE ([phone])[facility] (HLAB)[address] [place] [address] [place] Magnesium [Mass/Vol]on 04-10 [facility] No Panel Informationon 04-10 Bands Manual 2 [facility] Basophils Manual 4 [facility]th Eosinophils Manual 4 High 0 - 1 [facility] Interpretation and review of laboratory results Abnormal [facility] Lymphocytes Manual 7 [facility] Monocytes Manual 4 [facility] Myelocytes Manual 1 [facility] H ealth Neutrophils Manual 79 [facility] Interpretation and review of laboratory results Normal [facility] PHOSPHORUSon 04-10-2025 Phosphate [Mass/Vol] 2.6 mg/dL Normal 2.3-4.7 [facility] Comment on above: Performed By: #### L AB113, LAB17, [id number] ####Security Control Room Officer: UNA ARCE ([id number])[facility] (SBHLAB)[address] [place] [address] [place] Phosphate [Moles/Vol]on Phosphate [Mass/Vol] 2.6 mg/dL 2.3 - 4 .7 mg/dL [facility] Progress Noteon 04-10-2025 Progress [facility] Progress [facility] Normal [facility] Progress Note Will assume care as patient is being transferred out of ICU. D/w Dr Lewis via secure chat Normal [facility] Progress Note Normal [facility] Progress Note Normal [facility] [id number] 04-09-2025 [id number] Normal [facility] [id number] Normal [facility] BODY FLUID CELL COUNT WITH R EFLEX DIFFon 04-09-2025 RBC, BODY FLUID (AUTOMATED) <0.002 High 0.000 [facility] Comment on above: Performed By: #### L [id number], [id number] ####Security Control Room Officer: UNA ARCE ([phone])[facility] (SBHLAB)[address] [place] [address] WBC, BODY FLUID (AUTOMATED) 0.341 x10*3/ul High <=0.005 [facility] Comment on above: Performed By: #### L [id number], [id number] ####Security Control Room Officer: UNA ARCE ([phone])[facility] (SBHLAB)[address] [place] [address] RBC, BODY FLUID (AUTOMATED) <0.002 High 0.000 [facility] Comment on above: Performed By: #### L [id number], [id number] ####Security Control Room Officer: UNA ARCE ([id number])[facility]A [facility] (SBHLAB)[address] [place] [address] WBC, BODY FLUID (AUTOMATED) 0.112 x10*3/ul High <=0.005 [facility] Comment on above: Performed By: #### L [id number], [id number] ####Security Control Room Officer: UNA ARCE ([id number])[facility] (SBHLAB)[address] [place] [address] BODY FLUID DIFFERENTIALon CELLS COUNTED TOTAL (#) IN BODY FLUID 100 Normal [facility] Comment on above: Performed By: #### L [id number], [id number] ####Security Control Room Officer: UNA ARCE ([id number])[facility] [place] (SBHLAB)[address] [place] [address] [place] LYMPHOCYTES/100 LEUKOCYTES IN BODY FLUID BY MAN CT 51 % Normal [facility] Comment on above: Performed By: #### L [id number], [id number] ####Security Control Room Officer: UNA ARCE ([phone])[facility] [place] (SBHLAB)[address] [place] [address] [place] MONOCYTES+MACROPHAGES/10 0 WBC IN BODY FLUID BY MAN CT 36 % Normal [facility] Comment on above: Performed By: #### L [id number], [id number] ####Security Control Room Officer: UNA ARCE ([phone])[facility] [place] (SBHLAB)[address] [place] [address] [place] Neutrophils/100 WBC (Bld) 13 % Normal [facility] Comment on above: Performed By: #### L [id number], [id number] ####Security Control Room Officer: UNA ARCE ([phone])[facility] [place] (SBHLAB)[address] [place] [address] [place] CELLS COUNTED TOTAL (#) IN BODY FLUID 100 Normal [facility] Comment on above: Performed By: #### L [id number], [id number] ####Security Control Room Officer: UNA ARCE ([phone])[facility] [place] (SBHLAB)[address] [place] [address] [place] LYMPHOCYTES/100 LEUKOCYTES IN BODY FLUID BY MAN CT 31 % Normal [facility] Comment on above: Performed By: #### L [id number], [id number] ####Security Control Room Officer: UNA ARCE ([id number])[facility] [place] (SBHLAB)[address] [place] [address] [place] MESOTHELIAL CELLS/100 LEUKOCYTES IN BODY FLUID BY MANUAL COUNT 2 % Normal [facility] Comment on above: Performed By: #### L [id number], [id number] ####Security Control Room Officer: UNA ARCE ([id number])[facility] [place] (SBHLAB)[address] MONOCYTES+MACROPHAGES/10 0 WBC IN BODY FLUID BY MAN CT 37 % Normal [facility] Comment on above: Performed By: #### L [id number], CSI647 ####Security Control Room Officer: UNA ARCE ([id number])[facility] (SBHLAB)[address] Neutrophils/100 WBC (Bld) 30 % Normal [facility] Comment on above: Performed By: #### L [id number], [id number] ####Security Control Room Officer: UNA ARCE ([id number])[facility] (SBHLAB)[address] CBC W Auto Differential pane l (Bld)Ordered By: Jg Sarabia on 04-09-2025 Erythrocyte distribution width (RBC) [Ratio] 21.8 % High 11.5 - 15.0 % [employer] Hematocrit (Bld) [Volume fraction] 27.7 % Low 40.0 - 52.0 % [facility] Hemoglobin (Bld) [Mass/Vol] 7.5 g/dL Low 13.0 - 18.0 g/dL [facility] MCH (RBC) [Entitic mass] 22.6 pg Low 26. 0 - 34.0 pg [facility] MCHC (RBC) [Mass/Vol] 27.1 % Low 30.5 - 36.0 % [facility] MCV (RBC) [Entitic vol] 83.4 fL 77.0 - 99.0 fL [facility] Platelet mean volume (Bld) [Entitic vol] 9.4 fL 9.0 - 12.7 fL [facility] Platelets (Bld) [#/Vol] 279 10*3/uL 140 - 440 10*3/uL [facility] RBC (Bld) [#/Vol] 3.32 10*6/uL Low 4.40 - 5.9 0 10*6/uL [facility] WBC (Bld) [#/Vol] 11.2 10*3/uL High 3.6 - 10.7 10*3/uL [facility] CBC WITH AUTO DIFFERENTIALon 04-09-2025 Erythrocyte distribution width (RBC) [Ratio] 21.8 % High 11.5-15.0 [facility] Comment on above: Performed By: #### L [id number], [id number] ####Security Control Room Officer: UNA ARCE ([id number])LYNETTE SANCHEZLUIS (SBHLAB)[address] Hematocrit (Bld) [Volume fraction] 27.7 % Low 40.0-52.0 [facility] Comment on above: Performed By: #### L [id number], [id number] ####Security Control Room Officer: UNA ARCE ([id number])[facility]Angel [facility]OSPITALMarisol (SBHLAB)[address] Hemoglobin (Bld) [Mass/Vol] 7.5 g/dL Low 13.0-18.0 [facility] Comment on above: Performed By: #### L [id number], [id number] ####Security Control Room Officer: UNA ARCE ([id number])[facility]ENTERAngel SANCHEZCHRISTINAN (SBHLAB)[address] MCH (RBC) [Entitic mass] 22.6 pg Low 26.0-34.0 [facility] Comment on above: Performed By: #### L [id number], [id number] ####Security Control Room Officer: UNA ARCE ([id number])[facility]ENTERAngel SANCHEZLEA REGIONAL MEDICAL CENTERMarisol (SBHLAB)[address] MCHC 27.1 % Low 30.5-36.0 [facility] Comment on above: Performed By: #### L [id number], [id number] ####Security Control Room Officer: UNA ARCE ([id number])[facility]ENTERAngel SANCHEZLEA REGIONAL MED[facility] CENTERN (SBHLAB)[address] MCV (RBC) [Entitic vol] 83.4 fL Normal 77.0-99.0 [facility] Comment on above: Performed By: #### L [id number], [id number] ####Security Control Room Officer: UNA ARCE ([id number])[facility]A LAURACHRISTINAN (SBHLAB)[address] Platelet mean volume (Bld) [Entitic vol] 9.4 fL Normal 9.0-12.7 [facility] Comment on above: Performed By: #### L [id number], [id number] ####Security Control Room Officer: UNA ARCE ([id number])MONISHAA MCKAYN (SBHLAB)[address] Platelets (Bld) [#/Vol] 279 10*3/uL Normal 140-440 [facility] Comment on above: Performed By: #### L [id number], [id number] ####Security Control Room Officer: UNA ARCE ([id number])[facility]A MCKAYN (SBHLAB)[address] RBC (Bld) [#/Vol] 3.32 10*6/uL Low 4.40-5.90 [facility] Comment on above: Performed By: #### L [id number], [id number] ####Security Control Room Officer: UNA ARCE ([id number])[facility]ENTERAngel S[facility]HEZLEA [facility] MED[facility] CENTERN (SBHLAB)[address] WBC (Bld) [#/Vol] 11.2 10*3/uL High 3.6-10.7 [facility] Comment on above: Performed By: #### L [id number], [id number] ####Security Control Room Officer: UNA ARCE ([id number])[facility]A [facility] (SBHLAB)[address] COMPREHENSIVE METABOLIC PANE Anant 04-09-2025 Albumin [Mass/Vol] 2.2 g/dL Low 3.4-4.8 [facility] Comment on above: Performed By: #### L AB103, VPA365, LAB17 ####Security Control Room Officer: UNA ARCE ([id number])[facility] (SBHLAB)[address] ALP [Catalytic activity/Vol] 56 U/L Normal 40-150 [facility] Comment on above: Performed By: #### L AB103, XCV275, LAB17 ####Security Control Room Officer: UNA ARCE ([phone])[facility]ENTERAngel [place] (SBHLAB)[address] ALT [Catalytic activity/Vol] U/L Normal <40 [facility] Comment on above: Performed By: #### L AB103, KNC344, LAB17 ####Security Control Room Officer: UNA ARCE ([id number])[facility]ENTERAngel S[facility]HEZLEA [facility]ENTERN (SBHLAB)[address] Anion gap [Moles/Vol] 10 mmol/L Normal 3-13 [facility] Comment on above: Performed By: #### L AB103, IXQ084, LAB17 ####Security Control Room Officer: UNA ARCE ([id number])[facility] (SBHLAB)[address] AST [Catalytic activity/Vol] 18 U/L Normal <34 [facility] Comment on above: Performed By: #### L AB103, MDF887, LAB17 ####Security Control Room Officer: UNA ARCE ([id number])[facility] (SBHLAB)[address] Bilirubin [Mass/Vol] 0.7 mg/dL Normal <1.2 [facility] Comment on above: Performed By: #### L AB103, SRV070, LAB17 ####Security Control Room Officer: UNA ARCE ([phone])[facility] (SBHLAB)[address] Calcium [Mass/Vol] 8.1 mg/dL Low 8.8-10.0 [facility] Comment on above: Performed By: #### L AB103, RYP214, LAB17 ####Security Control Room Officer: UNA ARCE ([id number])[facility]ENTERAngel SANCHEZLEA [facility]ENTERN (SBHLAB)[address] Chloride [Moles/Vol] 98 mmol/L Normal 98-107 [facility] Comment on above: Performed By: #### L AB103, DAH262, LAB17 ####Security Control Room Officer: UNA YAZMIN ([id number])[facility] (SBHLAB)[address] CO2 [Moles/Vol] 34 mmol/L High 23-31 [facility] Comment on above: Performed By: #### L AB103, TUB672, LAB17 ####Security Control Room Officer: UNA BERMUDEZPEDRO ([id number])[facility] (SBHLAB)[address] Creatinine [Mass/Vol] 1.53 mg/dL High 0.72-1.25 [facility] Comment on above: Performed By: #### L AB103, TRS699, LAB17 ####Security Control Room Officer: UNA BERMUDEZPEDRO ([phone])[facility] ([facility])[address] GLOMERULAR FILTRATION RATE ML/MIN/1.73 SQ M.PREDICTED 43.2 mL/min/1.73m*2 Low >60.0 [facility] Comment on above: Result Comment: Calc ulation based on the Chronic Kidney Disease Epidemiology Collaboration (CKD-EPI) equation refit without adjustment for race Performed By: #### L AB103, MSQ199, LAB17 ####Security Control Room Officer: UNA STAUFFERMELANIE ([id number])[facility] ([facility])[address] Glucose [Mass/Vol] 90 mg/dL Normal 82-115 [facility] Comment on above: Performed By: #### L AB103, YTW669, LAB17 ####Security Control Room Officer: UNA BERMUDEZPEDRO ([id number])[facility] ([facility])[address] Potassium [Moles/Vol] 3.5 mmol/L Normal 3.5-5.1 [facility] Comment on above: Result Comment: [facility] potassium values may be up to 0.5 mmol/L lower than serum values. Performed By: #### L AB103, AZM142, LAB17 ####Security Control Room Officer: UNAANJEL ARCE ([phone])[facility]ENTERAngel [place] (SBHLAB)[address] [place] [address] Protein [Mass/Vol] 5.7 g/dL Low 6.4-8.3 [facility] Comment on above: Performed By: #### L AB103, ODH901, LAB17 ####Security Control Room Officer: UNA YAZMIN ([id number])[facility]ENTERAngel [place] (SBHLAB)[address] Sodium [Moles/Vol] 142 mmol/L Normal 136-145 [facility] Comment on above: Performed By: #### L AB103, GMB694, LAB17 ####Security Control Room Officer: UNAANJEL ARCE ([id number])[facility]ENTERAngel [place] (SBHLAB)[address] [place] [address] Urea nitrogen [Mass/Vol] 25 mg/dL High 9-23 [facility] Comment on above: Performed By: #### L AB103, [id number], LAB17 ####Security Control Room Officer: UNA YAZMIN ([phone])[facility]ENTERAngel [place] (SBHLAB)[address] [place] [address] CULTURE ANAEROBICon 04-09-20 CULTURE ANAEROBIC [facility] Comment on above: Performed By: #### L AB233 ####Security Control Room Officer: ANAHY AVILA ([id number])[facility] ([facility])[address] [place] [address] CULTURE ANAEROBIC Normal [facility] Comment on above: Performed By: #### L AB233 ####Security Control Room Officer: ANAHY AVILA ([phone])[address] CULTURE, AEROBIC BACTERIA WI TH GRAM STAINon 04-09-2025 CULTURE, AEROBIC BACTERIA WITH GRAM STAIN Normal [facility] Comment on above: Performed By: #### L AB897 ####Security Control Room Officer: ANAHY AVILA ([id number])[facility] (SAC[facility])[address] [place] [address] CULTURE, AEROBIC BACTERIA WITH GRAM STAIN Normal [facility] Comment on above: Performed By: #### L AB897 ####Security Control Room Officer: ANAHY AVILA ([id number])[facility] ([facility])[address] [place] [address] Comprehensive metabolic 1998 panelon 04-09-2025 Albumin [Mass/Vol] 2.2 g/dL Low 3.4 - 4.8 g/dL [facility] ALP [Catalytic activity/Vol] 56 U/L 40 - 150 U/L [facility] ALT [Catalytic activity/Vol] U/L NINF - 40 U/L [facility] Anion gap [Moles/Vol] 10 mmol/L 3 - 13 mmol/L [facility] AST [Catalytic activity/Vol] 18 U/L [facility] - 34 U/L [facility] Bilirubin [Mass/Vol] 0.7 mg/dL NINF - 1.2 mg/dL [facility] Calcium [Mass/Vol] 8.1 mg/dL Low 8.8 - 10. 0 mg/dL [facility] Chloride [Moles/Vol] 98 mmol/L 98 - 10 7 mmol/L [facility] CO2 [Moles/Vol] 34 mmol/L High 23 - 31 mmol/L [facility] Creatinine [Mass/Vol] 1.53 mg/dL High 0.72 - 1.25 mg/dL [facility] GFR/1.73 sq M.predicted (S/P/Bld) [Vol rate/Area] 43.2 mL/min Low - PINF [facility] Glucose [Mass/Vol] 90 mg/dL 82 - 115 mg/dL [facility] Interpretation and review of laboratory results Abnormal [facility] Potassium [Moles/Vol] 3.5 mmol/L 3.5 - 5.1 mmol/L [facility] Protein [Mass/Vol] 5.7 g/dL Low 6.4 - 8.3 g/dL [facility] Sodium [Moles/Vol] 142 mmol/L 136 - 145 mmol/L [facility] Urea nitrogen [Mass/Vol] 25 mg/dL High 9 - 23 mg/d L [facility] Consulton 04-09-2025 Consult Normal [facility] GLUCOSE, BODY FLUIDon 2024 GLUCOSE, BODY FLUID 132 mg/dL Normal [facility] Comment on above: Performed By: #### L AB188, CXA543, TRM262, HGQ572 ####Security Control Room Officer: ANAHY AVILA ([id number])[facility])[address] [place] [address] GLUCOSE, BODY FLUID 92 mg/dL Normal [facility] Comment on above: Performed By: #### L AB196, AUH109, FQV478, GWI079 ####Security Control Room Officer: ANAHY AVILA ([id number])[facility] ([facility])[address] [place] [address] LACTATE DEHYDROGENASEon LDH [Catalytic activity/Vol] 181 U/L Normal 125-220 [facility] Comment on above: Performed By: #### L AB118, LAB96 ####Security Control Room Officer: UNA ARCE ([id number])[facility] (SBHLAB[address] LACTATE DEHYDROGENASE, BODY FLUIDon 04-09-2025 LACTATE DEHYDROGENASE, BODY FLUID BY LAC->PYR 95 U/L Normal [facility] Comment on above: Performed By: #### L AB188, LPA513, XQO657, GUM014 ####Security Control Room Officer: ANAHY AVILA ([id number])[facility])[address] [place] [address] LACTATE DEHYDROGENASE, BODY FLUID BY LAC->PYR 95 U/L Normal [facility] Comment on above: Performed By: #### L AB196, QCK224, QOB844, BJK659 ####Security Control Room Officer: ANAHY AVILA ([phone])[facility])[address] [place] [address] TYPE OF BODY FLUID Pleural Fluid Normal [facility] Comment on above: Result Comment: [facility]AREL[facility] [place] COMMENTS:This test was developed and its performance characteristics determined by [employer]. It has not been cleared or approved by the [place] Food and Drug Administration. This test was performed in a CLIA certified laboratory and is intended for clinical purposes.Exudates are defined as meeting one of the following criteria: (a) Pleural lzjzo-yd-rmszc protein ratio of >0.5, (b) pleural iegqz-ge-jgydv LDH ratio of >0.6, or (c)a pleural fluid LDH activity that is >2/3 the upper limit of a normal serum LDH activity (Light???s criteria). Performed By: #### L AB196, TYR543, CQN449, GDA843 ####Security Control Room Officer: ANAHY AVILA ([id number])[facility] ([facility])[address] [place] [address] Result Comment: ORDE R COMMENTS:This test was developed and its performance characteristics determined by [employer]. It has not been cleared or approved [...] developed and its performance characteristics determined by [employer]. It has not been cleared or approved by the [place] Food and Drug Administration. This test was performed in a CLIA certified laboratory and is intended for clinical purposes.Pleural xmeou-vw-jvhwp protein ratio of >0.5 is one of Light???s criteria for an exudate. Heart failure associated misclassifications (by Light???s criteria) may be differentiated as transudative effusions by subsequently evaluating a sodak-sm-fshygsu albumin gradient (>1.2 g/dL) and/or a jbrqi-gx-cvxrr protein gradient (>3.1 g/dL). Result Comment: ORDE R COMMENTS:This test was developed and its performance characteristics determined by [employer]. It has not been cleared or approved by the US Food and Drug Administration. This test was performed in a CLIA certified laboratory and is intended for clinical purposes. Performed By: #### L [id number], [id number] ####Security Control Room Officer: UNA ARCE ([phone])[facility]ENTERAngel [place] (SBHLAB)[address] [place] [address] LDH Lactate to pyruvate reac tion [Catalytic activity/Vol]on 04-09-2025 Interpretation and review of laboratory results Normal [facility] Laboratoryon 04-09-2025 Fluid Nom (Body fld) Pleural Fluid S [facility] Fluid Nom (Body fld) Pleural Fluid S [facility] Fluid Nom (Body fld) Pleural Fluid S [facility] Fluid Nom (Body fld) Pleural Fluid S [facility] Fluid Nom (Body fld) Pleural Fluid S [facility] Fluid Nom (Body fld) Pleural Fluid S [facility] Fluid Nom (Body fld) Pleural Fluid S [facility] LaboratoryOrdered By: Anne cadena on 04-09-2025 Fluid Nom (Body fld) Pleural Fluid S [facility] LaboratoryOrdered By: Rian Spann on 04-09-2025 Fluid Nom (Body fld) Pleural Fluid S [facility] - Chemistry and C hemistry - challengeon 04-09-2025 LDH (Body fld) [Catalytic activity/Vol] 95 U/L [facility] Glucose (Body fld) [Mass/Vol] 132 mg/dL [facility] Protein (Body fld) [Mass/Vol] 2.3 g/dL [facility] pH (Body fld) 7.747 [pH] [facility] pH (Body fld) 7.688 [pH] [facility] Protein (Body fld) [Mass/Vol] 2.5 g/dL [facility] Glucose (Body fld) [Mass/Vol] 92 mg/dL [facility] LDH Lactate to pyruvate reaction [Catalytic activity/Vol] 181 U/L 125 - 220 U/L [facility] Protein [Mass/Vol] 5.9 g/dL Low 6.4 - 8.3 g/dL [facility] Magnesium [Mass/Vol] 1.7 mg/dL 1.6 - 2 .6 mg/dL [facility] Laboratory - Chemistry and C hemistry - challengeOrdered By: Anne Miles on 04-09-2025 LDH (Body fld) [Catalytic activity/Vol] 95 U/L [facility] Laboratory - Hematology and Cell countson 04-09-2025 Cells Counted Total (Body fld) [#] 100 [facility] Lymphocytes/100 WBC (Bld) 51 % [facility] Macrophages/100 WBC Manual cnt (Body fld) 36 % [facility] Neutrophils/100 WBC (Body fld) 13 % [facility] RBC Auto (Body fld) [#/Vol] High [facility] WBC (Body fld) [#/Vol] 0.341 10*3/uL High NINF [facility] Cells Counted Total (Body fld) [#] 100 [facility] Lymphocytes/100 WBC (Bld) 31 % [facility] Macrophages/100 WBC Manual cnt (Body fld) 37 % [facility] Mesothelial cells/100 WBC Manual cnt (Body fld) 2 % [facility] Neutrophils/100 WBC (Body fld) 30 % [facility] Anisocytosis Ql (Bld) Moderate Abnormal (none) [facility] Eosinophils (Bld) [#/Vol] 0.6 10*3/uL High 0.0 - 0.5 10*3/uL [facility] Eosinophils/100 WBC (Bld) 5 % 0 - 6 % [facility] Hypochromia Ql (Bld) Moderate Abnormal (none) [facility] Lymphocytes (Bld) [#/Vol] 0.8 10*3/uL Low 1.0 - 4.3 10*3/uL [facility] Lymphocytes/100 WBC (Bld) 7 % Low 15 - 45 % [facility] Monocytes (Bld) [#/Vol] 2 10*3/uL High 0.0 - 0.9 10*3/uL [facility] Monocytes/100 WBC (Bld) 18 % High 5 - 13 % [facility] Neutrophils (Bld) [#/Vol] 8 10*3/uL High 1.8 - 7.5 10*3/uL [facility] Poikilocytosis LM Ql (Bld) Slight Abnormal (none) [facility] Polychromasia LM Ql (Bld) Slight Abnormal (none) [facility] RBC morphology finding Nom (Bld) abnormal [facility] Segmented neutrophils/100 WBC (Bld) 71 % 38 - 82 % [facility] Stomatocytes LM Ql (Bld) Moderate Abnormal (none) [facility] Laboratory - Hematology and Cell countsOrdered By: Kyara Valles on 04-09-2025 RBC Auto (Body fld) [#/Vol] High [facility] WBC (Body fld) [#/Vol] 0.112 10*3/uL High NINF [facility] MAGNESIUMon 04-09-2025 Magnesium [Mass/Vol] 1.7 mg/dL Normal 1.6-2.6 [facility] Comment on above: Result Comment: YARELI [place] COMMENTS:Higher values can be expected in females during menses. Performed By: #### L [id number], [id number], [id number] ####Security Control Room Officer: UNA ARCE ([phone])[facility] [place] (SBHLAB)[address] MANUAL DIFFERENTIAL (CELLAVI BANDAR)on 04-09-2025 ANISOCYTOSIS PRESENCE IN BLOOD BY LIGHT MICROSCOPY Moderate Abnormal (none) [facility] Comment on above: Performed By: #### L [id number], [id number] ####Security Control Room Officer: UNA ARCE ([phone])[facility] [place] (SBHLAB)[address] BAND NEUTROPHILS TOTAL PER COUNTED LEUKOCYTES BY MANUAL COUNT Normal [facility] Comment on above: Performed By: #### L [id number], [id number] ####Security Control Room Officer: UNA ARCE ([id number])[facility] [place] (SBHLAB)[address] BASOPHILS TOTAL PER COUNTED LEUKOCYTES BY MANUAL COUNT Normal [facility] Comment on above: Performed By: #### L [id number], [id number] ####Security Control Room Officer: UNA ARCE ([id number])[facility] [place] (SBHLAB)[address] BLASTS TOTAL PER COUNTED LEUKOCYTES BY MANUAL COUNT Normal [facility] Comment on above: Performed By: #### L [id number], [id number] ####Security Control Room Officer: UNA ARCE ([phone])[facility] [place] (SBHLAB)[address] EOSINOPHILS (10*3/UL) IN BLOOD-CELLAVISION 0.6 10*3/uL High 0.0-0.5 [facility] Comment on above: Performed By: #### L [id number], [id number] ####Security Control Room Officer: UNA ARCE ([id number])[facility] [place] (SBHLAB)[address] [place] [address] [place] EOSINOPHILS TOTAL PER COUNTED LEUKOCYTES BY MANUAL COUNT 5 High 0-1 [facility] Comment on above: Performed By: #### L [id number], [id number] ####Security Control Room Officer: UNA ARCE ([phone])[facility] [place] (SBHLAB)[address] [place] [address] [place] EOSINOPHILS/100 LEUKOCYTES IN BLOOD-CELLAVISION 5 % Normal 0-6 [facility] Comment on above: Performed By: #### L [id number], [id number] ####Security Control Room Officer: UNA ARCE ([id number])[facility] [place] (SBHLAB)[address] [place] [address] [place] HYPOCHROMIA (PRESENCE) IN BLOOD BY LIGHT MICROSCOPY Moderate Abnormal (none) [facility] Comment on above: Performed By: #### L [id number], [id number] ####Security Control Room Officer: UNA ARCE ([id number])[facility] [place] (SBHLAB)[address] [place] [address] [place] LYMPHOCYTES (10*3/UL) IN BLOOD-CELLAVISION 0.8 10*3/uL Low 1.0-4.3 [facility] Comment on above: Performed By: #### L [id number], [id number] ####Security Control Room Officer: UNA ARCE ([id number])[facility] [place] (SBHLAB)[address] [place] [address] [place] LYMPHOCYTES TOTAL PER COUNTED LEUKOCYTES BY MANUAL COUNT 7 Normal [facility] Comment on above: Performed By: #### L [id number], [id number] ####Security Control Room Officer: UNA ARCE ([id number])[facility] [place] (SBHLAB)[address] [place] [address] [place] LYMPHOCYTES/100 LEUKOCYTES IN BLOOD-CELLAVISION 7 % Low 15-45 [facility] Comment on above: Performed By: #### L [id number], [id number] ####Security Control Room Officer: UNA ARCE ([id number])[facility] [place] (SBHLAB)[address] [place] [address] [place] METAMYELOCYTES TOTAL PER COUNTED LEUKOCYTES BY MANUAL COUNT [facility] Comment on above: Performed By: #### L [id number], [id number] ####Security Control Room Officer: UNA ARCE ([phone])[facility] [place] (SBHLAB)[address] [place] [address] [place] MONOCYTES (10*3/UL) IN BLOOD-CELLAVISION 2.0 10*3/uL High 0.0-0.9 [facility] Comment on above: Performed By: #### L [id number], [id number] ####Security Control Room Officer: UNA ARCE ([id number])[facility] [place] (SBHLAB)[address] [place] [address] [place] MONOCYTES TOTAL PER COUNTED LEUKOCYTES BY MANUAL COUNT [address] [facility] Comment on above: Performed By: #### L [id number], [id number] ####Security Control Room Officer: UNA ARCE ([id number])[facility] [place] (SBHLAB)[address] [place] [address] [place] MONOCYTES/100 LEUKOCYTES IN BLOOD-LUCIANA 18 % High 5-13 [facility] Comment on above: Performed By: #### L [id number], [id number] ####Security Control Room Officer: UNA ARCE ([id number])[facility] [place] (SBHLAB)[address] [place] [address] [place] MYELOCYTES COUNTED BY MANUAL COUNT [facility] Comment on above: Performed By: #### L [id number], [id number] ####Security Control Room Officer: UNA ARCE ([id number])[facility] [place] (SBHLAB)[address] [place] [address] [place] NEUTROPHILS TOTAL PER COUNTED LEUKOCYTES BY MANUAL COUNT 77 Normal [facility] Comment on above: Performed By: #### L [id number], [id number] ####Security Control Room Officer: UNA ARCE ([id number])[facility] [place] (SBHLAB)[address] [place] [address] [place] POIKILOCYTOSIS (PRESENCE) IN BLOOD BY LIGHT MICROSCOPY Slight Abnormal (none) [facility] Comment on above: Performed By: #### L [id number], [id number] ####Security Control Room Officer: UNA ARCE ([phone])[facility] [place] (SBHLAB)[address] POLYCHROMASIA IN BLOOD BY LIGHT MICROSCOPY Slight Abnormal (none) [facility] Comment on above: Performed By: #### L [id number], [id number] ####Security Control Room Officer: UNA STAUFFERMELANIE ([id number])[facility] [place] (SBHLAB)[address] PROMYELOCYTES TOTAL PER COUNTED LEUKOCYTES BY MANUAL COUNT Normal [facility] Comment on above: Performed By: #### L [id number], [id number] ####Security Control Room Officer: UNA ARCE ([id number])[facility] [place] (SBHLAB)[address] [place] [address] [place] RBC MORPHOLOGY IN BLOOD abnormal Normal [facility] Comment on above: Performed By: #### L [id number], [id number] ####Security Control Room Officer: UNA ARCE ([phone])[facility] [place] (SBHLAB)[address] [place] [address] [place] SEGMENTED NEUTROPHILS (10*3/UL) IN BLOOD-CELLAVISION 8.0 10*3/uL High 1.8-7.5 [facility] Comment on above: Performed By: #### L [id number], [id number] ####Security Control Room Officer: UNA ARCE ([id number])[facility] [place] (SBHLAB)[address] [place] [address] [place] SEGMENTED NEUTROPHILS/100 LEUKOCYTES-CE 71 % Normal 38-82 [facility] Comment on above: Performed By: #### L [id number], [id number] ####Security Control Room Officer: UNA BERMUDEZPEDRO ([id number])[facility] (SBHL[facility])[address] STOMATOCYTES IN BLOOD BY LIGHT MICROSCOPY Moderate Abnormal (none) [facility] Comment on above: Performed By: #### L [id number], [id number] ####Security Control Room Officer: UNA BERMUDEZPEDRO ([phone])[facility] (SBHLAB)[address] UNCLASSIFIED CELLS TOTAL PER COUNTED LEUKOCYTES BY MANUAL COUNT Normal [facility] Comment on above: Performed By: #### L [id number], [id number] ####Security Control Room Officer: UNA STAUFFERMELANIE ([id number])[facility] (SBHLAB)[address] VARIANT LYMPHOCYTES TOTAL PER COUNTED LEUKOCYTES BY MANUAL COUNT Normal [facility] Comment on above: Performed By: #### L [id number], [id number] ####Security Control Room Officer: UNA BERMUDEZPEDRO ([phone])[facility] [place] (SBHLAB)[address] Magnesium [Mass/Vol]on 04-09 [facility] No Panel Informationon 04-[address] [facility] Interpretation and review of laboratory results Abnormal [facility] Interpretation and review of laboratory results Abnormal [facility] Interpretation and review of laboratory results Normal [facility] Eosinophils Manual 5 High 0 - 1 [facility] Lymphocytes Manual 7 [facility] Monocytes Manual 19 [facility] Neutrophils Manual 77 [facility] No Panel InformationOrdered By: Anne Miles on 04-09-2025 [facility] No Panel InformationOrdered By: Kyara Valles on 04-09-2025 Interpretation and review of laboratory results Abnormal [facility] No Panel InformationOrdered By: Jg Sarabia on 04-09-2025 Interpretation and review of laboratory results Abnormal [facility] Nursing Noteon 04-09-2025 Nursing Note R thoracentesis complete pt tolerated well with minimal discomfort Normal [facility] Nursing Note L thoracentesis complete per Dr Lewis. Pt tolerated well with minimal discomfort Normal [facility] PH, BODY FLUIDon 04-09-2025 pH (Body fld) 7.747 [pH] Normal [facility] Comment on above: Performed By: #### L AB188, [id number], [id number], [id number] ####Security Control Room Officer: ANAHY AVILA ([phone])[facility])[address] [place] [address] TYPE OF BODY FLUID Pleural Fluid Normal [facility] Comment on above: Result Comment: YARELI [place] COMMENTS:This test was developed and its performance characteristics determined by [employer]. It has not been cleared or approved by the [place] Food and Drug Administration. This test was performed in a CLIA certified laboratory and is intended for clinical purposes. Performed By: #### L AB188, [id number], [id number], [id number] ####Security Control Room Officer: ANAHY AVILA ([phone])[facility] ([facility])[address] [place] [address] Result Comment: YARELI [place] COMMENTS:This test was developed and its performance characteristics determined by [employer]. It has not been cleared or approved [...] developed and its performance characteristics determined by [employer]. It has not been cleared or approved by the [place] Food and Drug Administration. This test was performed in a CLIA certified laboratory and is intended for clinical purposes.Pleural piisg-nd-pvyle protein ratio of >0.5 is one of Light???s criteria for an exudate. Heart failure associated misclassifications (by Light???s criteria) may be differentiated as transudative effusions by subsequently evaluating a dylng-vu-qngzxgt albumin gradient (>1.2 g/dL) and/or a izvga-cu-hwhej protein gradient (>3.1 g/dL). Result Comment: YARELI [place] COMMENTS:This test was developed and its performance characteristics determined by [facility] [employer]. It has not been cleared or approved by the [place] Food and Drug Administration. This test was performed in a CLIA certified laboratory and is intended for clinical purposes.Exudates are defined as meeting one of the following criteria: (a) Pleural dvazq-iq-vsobk protein ratio of >0.5, (b) pleural lhjtm-cl-ghvas LDH ratio of >0.6, or (c)a pleural fluid LDH activity that is >2/3 the upper limit of a normal serum LDH activity (Light???s criteria). Performed By: #### L [id number], [id number] ####Security Control Room Officer: UNA ARCE ([phone])[facility] ([facility])[address] [place] [address] pH (Body fld) 7.688 [pH] Normal [facility] Comment on above: Performed By: #### L AB196, TGX671, GZK978, HZG701 ####Security Control Room Officer: ANAHY AVILA ([id number])[facility] ([facility])[address] [place] [address] PHOSPHORUSon 04-09-2025 Phosphate [Mass/Vol] 3.5 mg/dL Normal 2.3-4.7 [facility] Comment on above: Performed By: #### L AB103, CVQ654, LAB17 ####Security Control Room Officer: UNA ARCE ([id number])[facility] ([facility])[address] [place] [address] PROTEIN BODY FLUIDon 025 PROTEIN, BODY FLUID 2.3 g/dL Normal [facility] Comment on above: Performed By: #### L AB188, [id number], LVX496, [id number] ####Security Control Room Officer: ANAHY [id number])[facility] ([facility])[address] [place] [address] PROTEIN, BODY FLUID 2.5 g/dL Normal [facility] Comment on above: Performed By: #### L AB196, QJV770, SGC044, IYQ805 ####Security Control Room Officer: ANAHY AVILA ([id number])[facility] ([facility])[address] [place] [address] [place] Phosphate [Moles/Vol]on Phosphate [Mass/Vol] 3.5 mg/dL 2.3 - 4 .7 mg/dL [facility] Progress Noteon 04-09-2025 Progress Note [facility] Normal [facility] Progress Note Normal [facility] Progress Note Normal [facility] TOTAL PROTEINon 04-09-2025 Protein [Mass/Vol] 5.9 g/dL Low 6.4-8.3 [facility] Comment on above: Result Comment: Seru m protein values are higher than plasma values. Samples from recumbent persons are lower by up to 0.5 g/dL as compared to ambulatory persons. After 60 years values are lower by up to 0.2 g/dL. Performed By: #### L AB118, LAB96 ####Security Control Room Officer: UNA ARCE ([id number])[facility] ([facility])[address] [place] [address] XR CHEST 1 VIEWon 04-09-2025 XR CHEST 1 VIEW [facility] XR Chest Single viewon 04-09 [facility] Radiology Study observation (narrative) [facility] Radiology Study observation (narrative) [facility] Radiology Study observation (narrative) [facility] XR Chest Single viewOrdered By: Gary Kay on 04-09-2025 [facility] [employer] Work Phone: XR Chest Single viewOrdered By: Sis Collins on 04-09-2025 [facility] [employer] Work Phone: XR Chest Single viewOrdered By: Kev Mattson on 04-09-2025 [facility] Work Phone: [phone] 04-08-2025 [id number] Attempted to insert garcía. [employer]rojet injected. Unable to visualize meatus. Attempted x1 to insert garcía without success. Normal [facility] [id number] Normal [facility] [id number] 04-08-2025 [id number] Normal [facility] BLOOD GAS ARTERIALon 025 AMOUNT OF OXYGEN .40 Normal [facility] Comment on above: Performed By: #### L AB76 ####Security Control Room Officer: UNA ARCE ([phone])[facility] ([facility])[address] [place] [address] Base excess Calc (Bld) [Moles/Vol] 11.2 mmol/L High -3.0-3.0 [facility] Comment on above: Performed By: #### L AB76 ####Security Control Room Officer: UNA ARCE ([phone])[facility] ([facility])[address] [place] [address] CO2 [Moles/Vol] 41.2 mmol/L High 22.0-28.0 [facility] Comment on above: Performed By: #### L AB76 ####Security Control Room Officer: UNA ARCE ([id number])[facility] (SB[facility])[address] [place] [address] HCO3 (Bld) [Moles/Vol] 38.9 mmol/L High 21.0-27.0 [facility] Comment on above: Performed By: #### L AB76 ####Security Control Room Officer: UNA ARCE ([phone])[facility] (SB[facility])[address] [place] [address] Hemoglobin (Bld) [Mass/Vol] 8.4 g/dL Low Screen only [facility] Comment on above: Performed By: #### L AB76 ####Security Control Room Officer: UNA ARCE ([phone])[facility] [place] (SBHL[facility])[address] OXYGEN SATURATION (%) IN ARTERIAL BLOOD 97.0 % Normal 97.0-99.0 [facility] Comment on above: Performed By: #### L AB76 ####Security Control Room Officer: UNA ARCE ([id number])[facility] (SBHLAB)[address] PCO2 ARTERIAL 75.1 mm Hg High 35.0-48.0 [facility] Comment on above: Performed By: #### L AB76 ####Security Control Room Officer: UNA ARCE ([id number])[facility] PH ARTERIAL 7.332 Low 7.350-7.450 [facility] Comment on above: Performed By: #### L AB76 ####Security Control Room Officer: UNA ARCE ([phone])[facility] ([facility])[address] PO2 ARTERIAL 104.0 mm Hg Normal 83.0-108.0 [facility] Comment on above: Performed By: #### L AB76 ####Security Control Room Officer: UNA ARCE ([id number])[facility] (HL[facility])[address] SOURCE OF OXYGEN Non-Invasive Ventilator Normal [facility] Comment on above: Performed By: #### L AB76 ####Security Control Room Officer: UNA ARCE ([phone])[facility] (SBHLAB)[address] AMOUNT OF OXYGEN 4 liters Normal [facility] Comment on above: Performed By: #### L AB76 ####Security Control Room Officer: UNA ARCE ([phone])[facility] (SB[facility])[address] Base excess Calc (Bld) [Moles/Vol] 9.9 mmol/L High -3.0-3.0 [facility] Comment on above: Performed By: #### L AB76 ####Security Control Room Officer: UNA ARCE ([id number])[facility] [place] (SBHL[facility])[address] CO2 [Moles/Vol] 40.6 mmol/L High 22.0-28.0 [facility] Comment on above: Performed By: #### L AB76 ####Security Control Room Officer: UNA ARCE ([phone])[facility] [place] (SBHL[facility])[address] HCO3 (Bld) [Moles/Vol] 38.2 mmol/L High 21.0-27.0 [facility] Comment on above: Performed By: #### L AB76 ####Security Control Room Officer: UNA ARCE ([phone])[facility] (SBHL[facility])[address] Hemoglobin (Bld) [Mass/Vol] 8.6 g/dL Low Screen only [facility] Comment on above: Performed By: #### L AB76 ####Security Control Room Officer: UNA ARCE ([id number])[facility] (SBHLAB)[address] OXYGEN SATURATION (%) IN ARTERIAL BLOOD 96.1 % Low 97.0-99.0 [facility] Comment on above: Performed By: #### L AB76 ####Security Control Room Officer: UNA ARCE ([id number])[facility] (SB[facility])[address] PCO2 ARTERIAL 80.1 mm Hg Critically high 35.0-48.0 [facility] Comment on above: Performed By: #### L AB76 ####Security Control Room Officer: UNA ARCE ([phone])[facility] (SBHLAB)[address] PH ARTERIAL 7.296 Low 7.350-7.450 [facility] Comment on above: Performed By: #### L AB76 ####Security Control Room Officer: UNA ARCE ([phone])[facility] CENTERnAgel [facility]ENTERMarisol (SBHLAB)[address] PO2 ARTERIAL 92.0 mm Hg Normal 83.0-108.0 [facility] Comment on above: Performed By: #### L AB76 ####Security Control Room Officer: UNA YAZMIN ([id number])[facility] CENTERAngel [facility] (SBHLAB)[address] SOURCE OF OXYGEN Nasal Cannula (LPM) Normal [facility] Comment on above: Performed By: #### L AB76 ####Security Control Room Officer: UNA ARCE ([id number])[facility] (SBHLAB)[address] CBC W Auto Differential pane l (Bld)on 04-08-2025 Erythrocyte distribution width (RBC) [Ratio] 21.1 % High 11.5 - 15.0 % [employer] Hematocrit (Bld) [Volume fraction] 25.9 % Low 40.0 - 52.0 % [employer] Hemoglobin (Bld) [Mass/Vol] 7.2 g/dL Low 13.0 - 18.0 g/dL [facility] [employer] MCH (RBC) [Entitic mass] 22.3 pg Low 26. 0 - 34.0 pg [facility] [employer] MCHC (RBC) [Mass/Vol] 27.8 % Low 30.5 - 36.0 % [employer] MCV (RBC) [Entitic vol] 80.2 fL 77.0 - 99.0 fL [employer] Platelet mean volume (Bld) [Entitic vol] 9.9 fL 9.0 - 12.7 fL [employer] Platelets (Bld) [#/Vol] 314 10*3/uL 140 - 440 10*3/uL [employer] RBC (Bld) [#/Vol] 3.23 10*6/uL Low 4.40 - 5.9 0 10*6/uL [employer] WBC (Bld) [#/Vol] 13 10*3/uL High 3.6 - 10.7 10*3/uL [employer] CBC WITH AUTO DIFFERENTIALon 04-08-2025 Erythrocyte distribution width (RBC) [Ratio] 21.1 % High 11.5-15.0 [facility] Comment on above: Performed By: #### L [id number], [id number] ####Security Control Room Officer: UNA ARCE ([id number])[facility] (SB[facility])[address] Hematocrit (Bld) [Volume fraction] 25.9 % Low 40.0-52.0 [facility] Comment on above: Performed By: #### L [id number], [id number] ####Security Control Room Officer: UNA ARCE ([id number])[facility] ([facility])[address] Hemoglobin (Bld) [Mass/Vol] 7.2 g/dL Low 13.0-18.0 [facility] Comment on above: Performed By: #### L [id number], [id number] ####Security Control Room Officer: UNA ARCE ([id number])[facility] ([facility])[address] [place] [address] MCH (RBC) [Entitic mass] 22.3 pg Low 26.0-34.0 [facility] Comment on above: Performed By: #### L [id number], [id number] ####Security Control Room Officer: UNA ARCE ([id number])[facility] ([facility])[address] [place] [address] MCHC 27.8 % Low 30.5-36.0 [facility] Comment on above: Performed By: #### L [id number], [id number] ####Security Control Room Officer: UNA ARCE ([id number])[facility] ([facility] MCV (RBC) [Entitic vol] 80.2 fL Normal 77.0-99.0 S [facility] Comment on above: Performed By: #### L [id number], [id number] ####Security Control Room Officer: UNA ARCE ([phone])[facility] ([facility])[address] Platelet mean volume (Bld) [Entitic vol] 9.9 fL Normal 9.0-12.7 [facility] Comment on above: Performed By: #### L [id number], [id number] ####Security Control Room Officer: UNA ARCE ([phone])[facility] ([facility])[address] Platelets (Bld) [#/Vol] 314 10*3/uL Normal 140-440 [facility] Comment on above: Performed By: #### L [id number], [id number] ####Security Control Room Officer: UNA ARCE ([id number])[facility] ([facility] RBC (Bld) [#/Vol] 3.23 10*6/uL Low 4.40-5.90 [facility] Comment on above: Performed By: #### L [id number], [id number] ####Security Control Room Officer: UNA ARCE ([phone])[facility] ([facility])[address] WBC (Bld) [#/Vol] 13.0 10*3/uL High 3.6-10.7 [facility] Comment on above: Performed By: #### L [id number], [id number] ####Security Control Room Officer: UNA ARCE ([id number])[facility] COMPREHENSIVE METABOLIC PANE Anant 04-08-2025 Albumin [Mass/Vol] 2.4 g/dL Low 3.4-4.8 [facility] Comment on above: Performed By: #### L [id number], [id number] ####Security Control Room Officer: UNA ARCE ([phone])[facility] ([facility])[address] ALP [Catalytic activity/Vol] 57 U/L Normal 40-150 [facility] Comment on above: Performed By: #### L AB103, LAB17 ####Security Control Room Officer: UNA ARCE ([id number])[facility] ([facility])[address] ALT [Catalytic activity/Vol] U/L Normal <40 [facility] Comment on above: Performed By: #### L [id number], [id number] ####Security Control Room Officer: UNA STAUFFERMELANIE ([phone])[facility] ([facility])[address] Anion gap [Moles/Vol] 10 mmol/L Normal 3-13 [facility] Comment on above: Performed By: #### L AB103, LAB17 ####Security Control Room Officer: UNA STAUFFERMELANIE ([id number])[facility] ([facility])[address] AST [Catalytic activity/Vol] 21 U/L Normal <34 [facility] Comment on above: Performed By: #### L AB103, LAB17 ####Security Control Room Officer: UNA STAUFFERMELANIE ([id number])[facility] ([facility])[address] Bilirubin [Mass/Vol] 0.6 mg/dL Normal <1.2 [facility] Comment on above: Performed By: #### L AB103, LAB17 ####Security Control Room Officer: UNA ARCE ([id number])[facility] ([facility])[address] Calcium [Mass/Vol] 7.9 mg/dL Low 8.8-10.0 [facility] Comment on above: Performed By: #### L AB103, LAB17 ####Security Control Room Officer: UNA ARCE ([id number])[facility] ([facility])[address] Chloride [Moles/Vol] 99 mmol/L Normal 98-107 [facility] Comment on above: Performed By: #### L AB103, LAB17 ####Security Control Room Officer: UNA ARCE ([id number])[facility] ([facility])[address] CO2 [Moles/Vol] 33 mmol/L High 23-31 [facility] Comment on above: Performed By: #### L AB103, LAB17 ####Security Control Room Officer: UNA ARCE ([id number])[facility] ([facility])[address] Creatinine [Mass/Vol] 1.78 mg/dL High 0.72-1.25 [facility] Comment on above: Performed By: #### L DERICK, LAB17 ####Security Control Room Officer: UNA ARCE ([phone])[facility] (SB[facility])[address] GLOMERULAR FILTRATION RATE ML/MIN/1.73 SQ M.PREDICTED 36.0 mL/min/1.73m*2 Low >60.0 [facility] Comment on above: Result Comment: Calc ulation based on the Chronic Kidney Disease Epidemiology Collaboration (CKD-EPI) equation refit without adjustment for race Performed By: #### L DERICK, LAB17 ####Security Control Room Officer: UNA ARCE ([id number])[facility] [place] (SBHLAB)[address] Glucose [Mass/Vol] 99 mg/dL Normal 82-115 [facility] Comment on above: Performed By: #### L AB103, LAB17 ####Security Control Room Officer: UNA ARCE ([id number])[facility] ([facility])[address] [place] [address] [place] Potassium [Moles/Vol] 3.4 mmol/L Low 3.5-5.1 [facility] Comment on above: Result Comment: [facility] potassium values may be up to 0.5 mmol/L lower than serum values. Performed By: #### L AB103, LAB17 ####Security Control Room Officer: UNA ARCE ([phone])[facility] ([facility])[address] Protein [Mass/Vol] 5.8 g/dL Low 6.4-8.3 [facility] Comment on above: Performed By: #### L AB103, LAB17 ####Security Control Room Officer: UNA ARCE ([id number])[facility] [place] (SBHLAB)[address] Sodium [Moles/Vol] 142 mmol/L Normal 136-145 [facility] Comment on above: Performed By: #### L AB103, LAB17 ####Security Control Room Officer: UNA ARCE ([id number])[facility] [place] (SB[facility]AB)[address] Urea nitrogen [Mass/Vol] 26 mg/dL High 9-23 [facility] Comment on above: Performed By: #### L AB103, LAB17 ####Security Control Room Officer: UNA ARCE ([id number])[facility] [place] (SBHLAB)[address] Comprehensive metabolic 1998 panelon 04-08-2025 Albumin [Mass/Vol] 2.4 g/dL Low 3.4 - 4.8 g/dL [facility] ALP [Catalytic activity/Vol] 57 U/L 40 - 150 U/L [facility] ALT [Catalytic activity/Vol] U/L NINF - 40 U/L [facility] Anion gap [Moles/Vol] 10 mmol/L 3 - 13 mmol/L [facility] AST [Catalytic activity/Vol] 21 U/L NINF - 34 U/L [facility] Bilirubin [Mass/Vol] 0.6 mg/dL NINF - 1.2 mg/dL [facility] Calcium [Mass/Vol] 7.9 mg/dL Low 8.8 - 10. 0 mg/dL [facility] Chloride [Moles/Vol] 99 mmol/L 98 - 10 7 mmol/L [facility] CO2 [Moles/Vol] 33 mmol/L High 23 - 31 mmol/L [facility] Creatinine [Mass/Vol] 1.78 mg/dL High 0.72 - 1.25 mg/dL [facility] GFR/1.73 sq M.predicted (S/P/Bld) [Vol rate/Area] 36 mL/min Low - PINF [facility] Glucose [Mass/Vol] 99 mg/dL 82 - 115 mg/dL [facility] Interpretation and review of laboratory results Abnormal [facility] Potassium [Moles/Vol] 3.4 mmol/L Low 3.5 - 5.1 mmol/L [facility] Protein [Mass/Vol] 5.8 g/dL Low 6.4 - 8.3 g/dL [facility] Sodium [Moles/Vol] 142 mmol/L 136 - 145 mmol/L [facility] Urea nitrogen [Mass/Vol] 26 mg/dL High 9 - 23 mg/d L [facility] Consulton 04-08-2025 Consult Normal [facility] Laboratory - Chemistry and C hemistry - challengeOrdered By: Renay Chan on 04-08-2025 Base excess Calc (Bld) [Moles/Vol] 11.2 mmol/L High -3.0 - 3.0 mmol/L [facility] CO2 (Bld) [Partial pressure] 75.1 mm[Hg] High [facility] CO2 [Moles/Vol] 41.2 mmol/L High 22.0 - 28.0 mmol/L [facility] HCO3 (Bld) [Moles/Vol] 38.9 mmol/L High 21.0 - 27.0 mmol/L [facility] Oxygen (Bld) [Partial pressure] 104 mm[Hg] [facility] pH (Bld) 7.332 [pH] Low 7.350 - 7.450 [facility] Laboratory - Chemistry and C hemistry - challengeOrdered By: Sallie Powell on 04-08-2025 Base excess Calc (Bld) [Moles/Vol] 9.9 mmol/L High -3.0 - 3.0 mmol/L [facility] CO2 (Bld) [Partial pressure] 80.1 mm[Hg] Critically high [facility] CO2 [Moles/Vol] 40.6 mmol/L High 22.0 - 28.0 mmol/L [facility] HCO3 (Bld) [Moles/Vol] 38.2 mmol/L High 21.0 - 27.0 mmol/L [facility] Oxygen (Bld) [Partial pressure] 92 mm[Hg] [facility] pH (Bld) 7.296 [pH] Low 7.350 - 7.450 [facility] Laboratory - Chemistry and C hemistry - challengeon 04-08-2025 Glucose [Mass/Vol] 100 mg/dL 70 - 100 mg/dL [facility] Magnesium [Mass/Vol] 1.6 mg/dL 1.6 - 2 .6 mg/dL [facility] Laboratory - Hematology and Cell countsOrdered By: Renay Chan on 04-08-2025 Hemoglobin (Bld) [Mass/Vol] 8.4 g/dL Low 13.5 - 17.5 g/dl [facility] Laboratory - Hematology and Cell countsOrdered By: Sallie Powell on 04-08-2025 Hemoglobin (Bld) [Mass/Vol] 8.6 g/dL Low 13.5 - 17.5 g/dl [facility] Laboratory - Hematology and Cell countson 04-08-2025 Anisocytosis Ql (Bld) Moderate Abnormal (none) [facility] Basophils (Bld) [#/Vol] 0.1 10*3/uL 0.0 - 0.2 10*3/uL [facility] Basophils/100 WBC (Bld) 1 % 0 - 2 % [facility] Hypochromia Ql (Bld) Moderate Abnormal (none) [facility] Lymphocytes (Bld) [#/Vol] 1.8 10*3/uL 1.0 - 4.3 10*3/uL [facility] Lymphocytes/100 WBC (Bld) 14 % Low 15 - 45 % [facility] Monocytes (Bld) [#/Vol] 1.6 10*3/uL High 0.0 - 0.9 10*3/uL [facility] Monocytes/100 WBC (Bld) 12 % 5 - 13 % [facility] Neutrophils (Bld) [#/Vol] 9.6 10*3/uL High 1.8 - 7.5 10*3/uL [facility] Ovalocytes LM Ql (Bld) Slight Abnormal (none) [facility] Poikilocytosis LM Ql (Bld) Moderate Abnormal (none) [facility] RBC morphology finding Nom (Bld) abnormal [facility] Segmented neutrophils/100 WBC (Bld) 74 % 38 - 82 % [facility] Stomatocytes LM Ql (Bld) Moderate Abnormal (none) [facility] MAGNESIUMon 04-08-2025 Magnesium [Mass/Vol] 1.6 mg/dL Normal 1.6-2.6 [facility] Comment on above: Result Comment: [facility] [place] COMMENTS:Higher values can be expected in females during menses. Performed By: #### L AB103, LAB17 ####Security Control Room Officer: UNA ARCE ([phone])[facility] [place] (SBHLAB)[address] MANUAL DIFFERENTIAL (CELLAVI BANDAR)on 04-08-2025 ANISOCYTOSIS PRESENCE IN BLOOD BY LIGHT MICROSCOPY Moderate Abnormal (none) [facility] Comment on above: Performed By: #### L [id number], [id number] ####Security Control Room Officer: UNA ARCE ([id number])[facility] [place] (SB[facility]AB)[address] BAND NEUTROPHILS TOTAL PER COUNTED LEUKOCYTES BY MANUAL COUNT Normal [facility] Comment on above: Performed By: #### L [id number], [id number] ####Security Control Room Officer: UNA ARCE ([id number])[facility] ([facility])[address] [place] [address] [place] BASOPHILS (10*3/UL) IN BLOOD-CELLAVISION 0.1 10*3/uL Normal 0.0-0.2 [facility] Comment on above: Performed By: #### L [id number], [id number] ####Security Control Room Officer: UNA ARCE ([id number])[facility] [place] (SBHLAB)[address] [place] [address] [place] BASOPHILS TOTAL PER COUNTED LEUKOCYTES BY MANUAL COUNT 1 Normal [facility] Comment on above: Performed By: #### L [id number], [id number] ####Security Control Room Officer: UNA ARCE ([id number])[facility] [place] (SB[facility]AB)[address] [place] [address] [place] BASOPHILS/100 LEUKOCYTES IN BLOOD-CELLAVISION 1 % Normal 0-2 [facility] Comment on above: Performed By: #### L [id number], [id number] ####Security Control Room Officer: UNA ARCE ([id number])[facility] [place] (SBHLAB)[address] [place] [address] [place] BLASTS TOTAL PER COUNTED LEUKOCYTES BY MANUAL COUNT Normal [facility] Comment on above: Performed By: #### L [id number], [id number] ####Security Control Room Officer: UNA MOHRCER ([id number])[facility] [place] (SBHLAB)[address] [place] [address] [place] EOSINOPHILS TOTAL PER COUNTED LEUKOCYTES BY MANUAL COUNT Normal [facility] Comment on above: Performed By: #### L [id number], [id number] ####Security Control Room Officer: UNA ARCE ([phone])[facility] [place] (SB[facility])[address] HYPOCHROMIA (PRESENCE) IN BLOOD BY LIGHT MICROSCOPY Moderate Abnormal (none) [facility] Comment on above: Performed By: #### L [id number], [id number] ####Security Control Room Officer: UNAANJEL ARCE ([phone])[facility] [place] (SB[facility]AB)[address] [place] [address] [place] LYMPHOCYTES (10*3/UL) IN BLOOD-CELLAVISION 1.8 10*3/uL Normal 1.0-4.3 [facility] Comment on above: Performed By: #### L [id number], [id number] ####Security Control Room Officer: UNAANJEL ARCE ([id number])[facility] [place] (SB[facility]AB)[address] [place] [address] [place] LYMPHOCYTES TOTAL PER COUNTED LEUKOCYTES BY MANUAL COUNT 14 Normal [facility] Comment on above: Performed By: #### L [id number], [id number] ####Security Control Room Officer: UNA YAZMIN ([id number])[facility] [place] ([facility])[address] [place] [address] [place] LYMPHOCYTES/100 LEUKOCYTES IN BLOOD-CELLAVISION 14 % Low 15-45 [facility] Comment on above: Performed By: #### L [id number], [id number] ####Security Control Room Officer: UNA ARCE ([id number])[facility] [place] (SBHLAB)[address] [place] [address] [place] METAMYELOCYTES TOTAL PER COUNTED LEUKOCYTES BY MANUAL COUNT [facility] Comment on above: Performed By: #### L [id number], [id number] ####Security Control Room Officer: UNA STAUFFERMELANIE ([id number])[facility] [place] ([facility])[address] [place] [address] [place] MONOCYTES (10*3/UL) IN BLOOD-CELLAVISION 1.6 10*3/uL High 0.0-0.9 [facility] Comment on above: Performed By: #### L [id number], [id number] ####Security Control Room Officer: UNA STAUFFERMELANIE ([id number])[facility] [place] (SB[facility]AB)[address] [place] [address] [place] MONOCYTES TOTAL PER COUNTED LEUKOCYTES BY MANUAL COUNT 12 Normal [facility] Comment on above: Performed By: #### L [id number], [id number] ####Security Control Room Officer: UNA STAUFFERMELANIE ([id number])[facility] [place] (SB[facility])[address] [place] [address] [place] MONOCYTES/100 LEUKOCYTES IN BLOOD-LUCIANA 12 % Normal -13 [facility] Comment on above: Performed By: #### L [id number], [id number] ####Security Control Room Officer: UNA ARCE ([phone])[facility] [place] (SB[facility])[address] [place] [address] [place] MYELOCYTES COUNTED BY MANUAL COUNT [facility] Comment on above: Performed By: #### L [id number], [id number] ####Security Control Room Officer: UNA ARCE ([id number])[facility] [place] ([facility])[address] [place] [address] [place] NEUTROPHILS TOTAL PER COUNTED LEUKOCYTES BY MANUAL COUNT 75 Normal [facility] Comment on above: Performed By: #### L [id number], [id number] ####Security Control Room Officer: UNA ARCE ([id number])[facility] [place] (SBHLAB)[address] [place] [address] [place] OVALOCYTES PRESENCE IN BLOOD BY LIGHT MICROSCOPY Slight Abnormal (none) [facility] Comment on above: Performed By: #### L [id number], [id number] ####Security Control Room Officer: UNA ARCE ([id number])[facility] [place] ([facility])[address] [place] [address] [place] POIKILOCYTOSIS (PRESENCE) IN BLOOD BY LIGHT MICROSCOPY Moderate Abnormal (none) [facility] Comment on above: Performed By: #### L [id number], [id number] ####Security Control Room Officer: UNA ARCE ([id number])[facility] [place] ([facility])[address] [place] [address] [place] PROMYELOCYTES TOTAL PER COUNTED LEUKOCYTES BY MANUAL COUNT Normal [facility] Comment on above: Performed By: #### L [id number], [id number] ####Security Control Room Officer: UNA ARCE ([id number])[facility] [place] (SB[facility])[address] [place] [address] [place] RBC MORPHOLOGY IN BLOOD abnormal Normal [facility] Comment on above: Performed By: #### L [id number], [id number] ####Security Control Room Officer: UNA ARCE ([id number])[facility] [place] ([facility])[address] [place] [address] [place] SEGMENTED NEUTROPHILS (10*3/UL) IN BLOOD-CELLAVISION 9.6 10*3/uL High 1.8-7.5 [facility] Comment on above: Performed By: #### L [id number], [id number] ####Security Control Room Officer: UNA ARCE ([id number])[facility] [place] ([facility])[address] [place] [address] [place] SEGMENTED NEUTROPHILS/100 LEUKOCYTES-CE 74 % Normal 38-82 [facility] Comment on above: Performed By: #### L [id number], [id number] ####Security Control Room Officer: UNA ARCE ([id number])[facility] [place] (SBHLAB)[address] STOMATOCYTES IN BLOOD BY LIGHT MICROSCOPY Moderate Abnormal (none) [facility] Comment on above: Performed By: #### L [id number], [id number] ####Security Control Room Officer: UNA ARCE ([id number])[facility] (SBHLAB)[address] UNCLASSIFIED CELLS TOTAL PER COUNTED LEUKOCYTES BY MANUAL COUNT Normal [facility] Comment on above: Performed By: #### L [id number], [id number] ####Security Control Room Officer: UAN ARCE ([id number])[facility] ([facility])[address] VARIANT LYMPHOCYTES TOTAL PER COUNTED LEUKOCYTES BY MANUAL COUNT Normal [facility] Comment on above: Performed By: #### L [id number], [id number] ####Security Control Room Officer: UNA ARCE ([id number])[facility] ([facility]AB)[address] Magnesium [Mass/Vol]on 04-08 Interpretation and review of laboratory results Normal [facility] No Panel InformationOrdered By: Renay Chan on 04-08-2025 Amount Of Oxygen 0.40 [facility] Interpretation and review of laboratory results Abnormal [facility] Source Of Oxygen Non-Invasive Ventilator [facility] No Panel InformationOrdered By: Sallie Powell on 04-08-2025 Amount Of Oxygen 4 liters [facility] Interpretation and review of laboratory results Abnormal [facility] Source Of Oxygen Nasal Cannula (LPM) [facility] No Panel Informationon 04-08 Interpretation and review of laboratory results Normal [facility] Basophils Manual 1 [facility] Interpretation and review of laboratory results Abnormal [facility] Lymphocytes Manual 14 [facility] Monocytes Manual 12 [facility] Neutrophils Manual 75 [facility] Progress Noteon 04-08-2025 Progress Note Normal [facility] Normal [facility] Progress Note Normal [facility] Progress Note Normal [facility] XR Chest Single viewon 04-08 [facility] Radiology Study observation (narrative) [facility] XR Chest Single viewOrdered By: Nelson Sow on 04-08-2025 [facility] Work Phone: CBC W Auto Differential pane l (Bld)Ordered By: Sharita Beck on 04-07-2025 Erythrocyte distribution width (RBC) [Ratio] 20.5 % High 11.5 - 15.0 % [facility] Hematocrit (Bld) [Volume fraction] 27.2 % Low 40.0 - 52.0 % [facility] Hemoglobin (Bld) [Mass/Vol] 7.4 g/dL Low 13.0 - 18.0 g/dL [facility] MCH (RBC) [Entitic mass] 21.8 pg Low 26. 0 - 34.0 pg [facility] MCHC (RBC) [Mass/Vol] 27.2 % Low 30.5 - 36.0 % [facility] MCV (RBC) [Entitic vol] 80 fL 77.0 - 99.0 fL [facility] Platelet mean volume (Bld) [Entitic vol] 9.8 fL 9.0 - 12.7 fL [facility] Platelets (Bld) [#/Vol] 346 10*3/uL 140 - 440 10*3/uL [facility] RBC (Bld) [#/Vol] 3.4 10*6/uL Low 4.40 - 5.9 0 10*6/uL [facility] WBC (Bld) [#/Vol] 11.5 10*3/uL High 3.6 - 10.7 10*3/uL [facility] CBC WITH AUTO DIFFERENTIALon 04-07-2025 Erythrocyte distribution width (RBC) [Ratio] 20.5 % High 11.5-15.0 [facility] Comment on above: Performed By: #### L [id number], [id number] ####Security Control Room Officer: UNA ARCE ([id number])[facility] ([facility])[address] [place] [address] Hematocrit (Bld) [Volume fraction] 27.2 % Low 40.0-52.0 [facility] Comment on above: Performed By: #### L [id number], [id number] ####Security Control Room Officer: UNA ARCE ([id number])[facility] [place] ([facility])[address] Hemoglobin (Bld) [Mass/Vol] 7.4 g/dL Low 13.0-18.0 [facility] Comment on above: Performed By: #### L [id number], [id number] ####Security Control Room Officer: UNA ARCE ([id number])[facility] ([facility])[address] MCH (RBC) [Entitic mass] 21.8 pg Low 26.0-34.0 [facility] Comment on above: Performed By: #### L [id number], [id number] ####Security Control Room Officer: UNA ARCE ([id number])[facility] ([facility])[address] MCHC 27.2 % Low 30.5-36.0 [facility] Comment on above: Performed By: #### L [id number], [id number] ####Security Control Room Officer: UNA ARCE ([id number])[facility] ([facility])[address] MCV (RBC) [Entitic vol] 80.0 fL Normal 77.0-99.0 [facility] Comment on above: Performed By: #### L [id number], [id number] ####Security Control Room Officer: UNA ARCE ([id number])[facility] ([facility])[address] Platelet mean volume (Bld) [Entitic vol] 9.8 fL Normal 9.0-12.7 [facility] Comment on above: Performed By: #### L [id number], [id number] ####Security Control Room Officer: UNA ARCE ([id number])[facility] ([facility])[address] Platelets (Bld) [#/Vol] 346 10*3/uL Normal 140-440 [facility] Comment on above: Performed By: #### L [id number], [id number] ####Security Control Room Officer: UNA ARCE ([id number])[facility] ([facility])[address] RBC (Bld) [#/Vol] 3.40 10*6/uL Low 4.40-5.90 [facility] Comment on above: Performed By: #### L [id number], [id number] ####Security Control Room Officer: UNA ARCE ([phone])[facility] [place] ([facility])[address] WBC (Bld) [#/Vol] 11.5 10*3/uL High 3.6-10.7 [facility] Comment on above: Performed By: #### L [id number], [id number] ####Security Control Room Officer: UNA ARCE ([phone])[facility] (SBHLAB)[address] COMPREHENSIVE METABOLIC PANE Anant 04-07-2025 Albumin [Mass/Vol] 2.4 g/dL Low 3.4-4.8 [facility] Comment on above: Performed By: #### L AB17, [id number] ####Security Control Room Officer: UNA ARCE ([phone])[facility] B[place]N (SBHLAB)[address] ALP [Catalytic activity/Vol] 57 U/L Normal 40-150 [facility] Comment on above: Performed By: #### L AB17, [id number] ####Security Control Room Officer: UNA ARCE ([phone])[facility] (SBHLAB)[address] ALT [Catalytic activity/Vol] U/L Normal <40 [facility] Comment on above: Performed By: #### L AB17, [id number] ####Security Control Room Officer: UNA ARCE ([phone])[facility] [place] (SBHLAB)[address] Anion gap [Moles/Vol] 14 mmol/L High 3-13 [facility] Comment on above: Performed By: #### L AB17, [id number] ####Security Control Room Officer: UNA ARCE ([phone])[facility] [place] (SBHLAB)[address] AST [Catalytic activity/Vol] 23 U/L Normal <34 [facility] Comment on above: Performed By: #### L AB17, [id number] ####Security Control Room Officer: UNA ARCE ([phone])[facility] [place] (SBHLAB)[address] Bilirubin [Mass/Vol] 0.7 mg/dL Normal <1.2 [facility] Comment on above: Performed By: #### L AB17, [id number] ####Security Control Room Officer: UNA ARCE ([phone])[facility] [place] (SBHLAB)[address] Calcium [Mass/Vol] 7.9 mg/dL Low 8.8-10.0 [facility] Comment on above: Performed By: #### L AB17, [id number] ####Security Control Room Officer: UNA ARCE ([phone])[facility] [place] (SBHLAB)[address] [place] [address] [place] Chloride [Moles/Vol] 98 mmol/L Normal 98-107 [facility] Comment on above: Performed By: #### L AB17, [id number] ####Security Control Room Officer: UNA ARCE ([phone])[facility] [place] (SBHLAB)[address] [place] [address] [place] CO2 [Moles/Vol] 31 mmol/L Normal 23-31 [facility] Comment on above: Performed By: #### L AB17, [id number] ####Security Control Room Officer: UNA ARCE ([phone])[facility] [place] (SBHLAB)[address] Creatinine [Mass/Vol] 1.63 mg/dL High 0.72-1.25 [facility] Comment on above: Performed By: #### L AB17, [id number] ####Security Control Room Officer: UNA ARCE ([phone])[facility] [place] (SBHLAB)[address] GLOMERULAR FILTRATION RATE ML/MIN/1.73 SQ M.PREDICTED 40.0 mL/min/1.73m*2 Low >60.0 [facility] Comment on above: Result Comment: Calc ulation based on the Chronic Kidney Disease Epidemiology Collaboration (CKD-EPI) equation refit without adjustment for race Performed By: #### L AB17, [id number] ####Security Control Room Officer: UNA ARCE ([phone])[facility] [place] (SBHLAB)[address] Glucose [Mass/Vol] 88 mg/dL Normal 82-115 [facility] Comment on above: Performed By: #### L AB17, [id number] ####Security Control Room Officer: UNA ARCE ([phone])[facility] (SBHLAB)[address] Potassium [Moles/Vol] 3.6 mmol/L Normal 3.5-5.1 [facility] Comment on above: Result Comment: [facility] potassium values may be up to 0.5 mmol/L lower than serum values. Performed By: #### L AB17, [id number] ####Security Control Room Officer: UNA ARCE ([phone])[facility] [place] (SBHLAB)[address] Protein [Mass/Vol] 5.7 g/dL Low 6.4-8.3 [facility] Comment on above: Performed By: #### L AB17, [id number] ####Security Control Room Officer: UNA ARCE ([phone])[facility]Angel [facility]ENTERN (SBHLAB)[address] [place] [address] [place] Sodium [Moles/Vol] 143 mmol/L Normal 136-145 [facility] Comment on above: Performed By: #### L AB17, [id number] ####Security Control Room Officer: UNA ARCE ([phone])[facility] (SBHLAB)[address] Urea nitrogen [Mass/Vol] 26 mg/dL High 9-23 [facility] Comment on above: Performed By: #### L AB17, [id number] ####Security Control Room Officer: UNA ARCE ([phone])[facility] (SBHLAB)[address] Comprehensive metabolic 1998 panelon 04-07-2025 Albumin [Mass/Vol] 2.4 g/dL Low 3.4 - 4.8 g/dL [facility] ALP [Catalytic activity/Vol] 57 U/L 40 - 150 U/L [facility] ALT [Catalytic activity/Vol] U/L NINF - 40 U/L [facility] Anion gap [Moles/Vol] 14 mmol/L High 3 - 13 mmol/L [facility] AST [Catalytic activity/Vol] 23 U/L NINF - 34 U/L [facility] Bilirubin [Mass/Vol] 0.7 mg/dL NINF - 1.2 mg/dL [facility] Calcium [Mass/Vol] 7.9 mg/dL Low 8.8 - 10. 0 mg/dL [facility] Chloride [Moles/Vol] 98 mmol/L 98 - 10 7 mmol/L [facility] CO2 [Moles/Vol] 31 mmol/L 23 - 31 mmol/L [facility] Creatinine [Mass/Vol] 1.63 mg/dL High 0.72 - 1.25 mg/dL [facility] GFR/1.73 sq M.predicted (S/P/Bld) [Vol rate/Area] 40 mL/min Low - PINF [facility] Glucose [Mass/Vol] 88 mg/dL 82 - 115 mg/dL [facility] Interpretation and review of laboratory results Abnormal [facility] Potassium [Moles/Vol] 3.6 mmol/L 3.5 - 5.1 mmol/L [facility] Protein [Mass/Vol] 5.7 g/dL Low 6.4 - 8.3 g/dL [facility] Sodium [Moles/Vol] 143 mmol/L 136 - 145 mmol/L [facility] Urea nitrogen [Mass/Vol] 26 mg/dL High 9 - 23 mg/d L [facility] Consulton 04-07-2025 Consult Normal [facility] Laboratory - Chemistry and C hemistry - challengeon 04-07-2025 Magnesium [Mass/Vol] 1.7 mg/dL 1.6 - 2 .6 mg/dL [facility] Laboratory - Hematology and Cell countson 04-07-2025 Anisocytosis Ql (Bld) Slight Abnormal (none) [facility] Eosinophils (Bld) [#/Vol] 0.3 10*3/uL 0.0 - 0.5 10*3/uL [facility] Eosinophils/100 WBC (Bld) 3 % 0 - 6 % [facility] Hypochromia Ql (Bld) Moderate Abnormal (none) [facility] Lymphocytes (Bld) [#/Vol] 0.9 10*3/uL Low 1.0 - 4.3 10*3/uL [facility] Lymphocytes/100 WBC (Bld) 8 % Low 15 - 45 % [facility] Monocytes (Bld) [#/Vol] 0.8 10*3/uL 0.0 - 0.9 10*3/uL [facility] Monocytes/100 WBC (Bld) 7 % 5 - 13 % [facility] Neutrophils (Bld) [#/Vol] 9.5 10*3/uL High 1.8 - 7.5 10*3/uL [facility] Nucleated RBC/100 WBC (Bld) [Ratio] 1 % 0 - 2 % [facility] Poikilocytosis LM Ql (Bld) Slight Abnormal (none) [facility] RBC morphology finding Nom (Bld) abnormal [facility] Segmented neutrophils/100 WBC (Bld) 83 % High 38 - 82 % [facility] Stomatocytes LM Ql (Bld) Moderate Abnormal (none) [facility] MAGNESIUMon 04-07-2025 Magnesium [Mass/Vol] 1.7 mg/dL Normal 1.6-2.6 [facility] Comment on above: Result Comment: ORDE R COMMENTS:Higher values can be expected in females during menses. Performed By: #### L AB17, [id number] ####Security Control Room Officer: UNA ARCE ([phone])[facility] [place] (SBHLAB)[address] [place] [address] [place] MANUAL DIFFERENTIAL (CELLAVI BANDAR)on 04-07-2025 ANISOCYTOSIS PRESENCE IN BLOOD BY LIGHT MICROSCOPY Slight Abnormal (none) [facility] Comment on above: Performed By: #### L [id number], [id number] ####Security Control Room Officer: UNA ARCE ([id number])[facility] [place] (SBHLAB)[address] BAND NEUTROPHILS TOTAL PER COUNTED LEUKOCYTES BY MANUAL COUNT Normal [facility] Comment on above: Performed By: #### L [id number], [id number] ####Security Control Room Officer: UNA ARCE ([id number])[facility] [place] (SBHLAB)[address] BASOPHILS TOTAL PER COUNTED LEUKOCYTES BY MANUAL COUNT Normal [facility] Comment on above: Performed By: #### L [id number], [id number] ####Security Control Room Officer: UNA ARCE ([phone])[facility] [place] (SBHLAB)[address] [place] [address] [place] BLASTS TOTAL PER COUNTED LEUKOCYTES BY MANUAL COUNT Normal [facility] Comment on above: Performed By: #### L [id number], [id number] ####Security Control Room Officer: UNA ARCE ([id number])[facility] [place] (SBHLAB)[address] [place] [address] [place] EOSINOPHILS (10*3/UL) IN BLOOD-CELLAVISION 0.3 10*3/uL Normal 0.0-0.5 [facility] Comment on above: Performed By: #### L [id number], [id number] ####Security Control Room Officer: UNA ARCE ([phone])[facility] [place] (SBHLAB)[address] [place] [address] [place] EOSINOPHILS TOTAL PER COUNTED LEUKOCYTES BY MANUAL COUNT 3 High 0-1 [facility] Comment on above: Performed By: #### L [id number], [id number] ####Security Control Room Officer: UNA STAUFFERMELANIE ([id number])[facility] [place] (SBHLAB)[address] [place] [address] [place] EOSINOPHILS/100 LEUKOCYTES IN BLOOD-CELLAVISION 3 % Normal 0-6 [facility] Comment on above: Performed By: #### L [id number], [id number] ####Security Control Room Officer: UNA STAUFFERMELANIE ([phone])[facility] [place] (SBHLAB)[address] [place] [address] [place] HYPOCHROMIA (PRESENCE) IN BLOOD BY LIGHT MICROSCOPY Moderate Abnormal (none) [facility] Comment on above: Performed By: #### L [id number], [id number] ####Security Control Room Officer: UNA BERMUDEZPEDRO ([id number])[facility] [place] (SBHLAB)[address] [place] [address] [place] LYMPHOCYTES (10*3/UL) IN BLOOD-CELLAVISION 0.9 10*3/uL Low 1.0-4.3 [facility] Comment on above: Performed By: #### L [id number], [id number] ####Security Control Room Officer: UNA STAUFFERMELANIE ([phone])[facility] [place] (SBHLAB)[address] [place] [address] [place] LYMPHOCYTES TOTAL PER COUNTED LEUKOCYTES BY MANUAL COUNT 8 Normal [facility] Comment on above: Performed By: #### L [id number], [id number] ####Security Control Room Officer: UNA STAUFFERMELANIE ([id number])[facility] [place] (SBHLAB)[address] [place] [address] [place] LYMPHOCYTES/100 LEUKOCYTES IN BLOOD-CELLAVISION 8 % Low 15-45 [facility] Comment on above: Performed By: #### L [id number], [id number] ####Security Control Room Officer: UNA STAUFFERMELANIE ([phone])[facility] [place] (SBHLAB)[address] [place] [address] [place] METAMYELOCYTES TOTAL PER COUNTED LEUKOCYTES BY MANUAL COUNT Normal [facility] Comment on above: Performed By: #### L [id number], [id number] ####Security Control Room Officer: UNA STAUFFERMELANIE ([id number])[facility] [place] (SBHLAB)[address] [place] [address] [place] MONOCYTES (10*3/UL) IN BLOOD-CELLAVISION 0.8 10*3/uL Normal 0.0-0.9 [facility] Comment on above: Performed By: #### L [id number], [id number] ####Security Control Room Officer: UNA BERMUDEZPEDRO ([phone])[facility] [place] (SBHLAB)[address] [place] [address] [place] MONOCYTES TOTAL PER COUNTED LEUKOCYTES BY MANUAL COUNT 7 Normal [facility] Comment on above: Performed By: #### L [id number], [id number] ####Security Control Room Officer: UNA BERMUDEZPEDRO ([id number])[facility] [place] (SBHLAB)[address] [place] [address] [place] MONOCYTES/100 LEUKOCYTES IN BLOOD-LUCIANA 7 % Normal 5-13 [facility] Comment on above: Performed By: #### L [id number], [id number] ####Security Control Room Officer: UNA BERMUDEZPEDRO ([phone])[facility] [place] (SBHLAB)[address] MYELOCYTES COUNTED BY MANUAL COUNT [facility] Comment on above: Performed By: #### L [id number], [id number] ####Security Control Room Officer: UNA ARCE ([phone])[facility] [place] (SBHLAB)[address] [place] [address] [place] NEUTROPHILS TOTAL PER COUNTED LEUKOCYTES BY MANUAL COUNT 86 Normal [facility] Comment on above: Performed By: #### L [id number], [id number] ####Security Control Room Officer: UNA ARCE ([phone])[facility] [place] (SBHLAB)[address] [place] [address] [place] NUCLEATED ERYTHROCYTES/100 LEUKOCTES IN BLOOD-CELLAVISION 1 % Normal 0-2 [facility] Comment on above: Performed By: #### L [id number], [id number] ####Security Control Room Officer: UNA ARCE ([id number])[facility]ENTERAngel [place] (SBHLAB)[address] [place] [address] [place] POIKILOCYTOSIS (PRESENCE) IN BLOOD BY LIGHT MICROSCOPY Slight Abnormal (none) [facility] Comment on above: Performed By: #### L [id number], [id number] ####Security Control Room Officer: UNA ARCE ([id number])[facility] [place] (SBHLAB)[address] [place] [address] [place] PROMYELOCYTES TOTAL PER COUNTED LEUKOCYTES BY MANUAL COUNT Normal [facility] Comment on above: Performed By: #### L [id number], [id number] ####Security Control Room Officer: UNA ARCE ([phone])[facility] (SBHLAB)[address] RBC MORPHOLOGY IN BLOOD abnormal Normal [facility] Comment on above: Performed By: #### L [id number], [id number] ####Security Control Room Officer: UNA ARCE ([id number])[facility] [place] (SBHLAB)[address] [place] [address] [place] SEGMENTED NEUTROPHILS (10*3/UL) IN BLOOD-CELLAVISION 9.5 10*3/uL High 1.8-7.5 [facility] Comment on above: Performed By: #### L [id number], [id number] ####Security Control Room Officer: UNA ARCE ([id number])[facility]Angel [place] (SBHLAB)[address] [place] [address] [place] SEGMENTED NEUTROPHILS/100 LEUKOCYTES-CE 83 % High 38-82 [facility] Comment on above: Performed By: #### L [id number], [id number] ####Security Control Room Officer: UNA ARCE ([phone])[facility] [place] (SBHLAB)[address] [place] [address] [place] STOMATOCYTES IN BLOOD BY LIGHT MICROSCOPY Moderate Abnormal (none) [facility] Comment on above: Performed By: #### L [id number], [id number] ####Security Control Room Officer: UNA ARCE ([id number])[facility] ([facility])[address] UNCLASSIFIED CELLS TOTAL PER COUNTED LEUKOCYTES BY MANUAL COUNT Normal [facility] Comment on above: Performed By: #### L [id number], [id number] ####Security Control Room Officer: UNA BERMUDEZPEDRO ([phone])[facility] (SB[facility])[address] VARIANT LYMPHOCYTES TOTAL PER COUNTED LEUKOCYTES BY MANUAL COUNT Normal [facility] Comment on above: Performed By: #### L [id number], [id number] ####Security Control Room Officer: UNA STAUFFERMELANIE ([phone])[facility] (SBHLAB)[address] Magnesium [Mass/Vol]on 04-07 Interpretation and review of laboratory results Normal [facility] No Panel Informationon 04-07 Eosinophils Manual 3 High 0 - 1 [facility] Lymphocytes Manual 8 [facility] Monocytes Manual 7 [facility] Neutrophils Manual 86 [facility] No Panel InformationOrdered By: Sharita Beck on 04-07-2025 Interpretation and review of laboratory results Abnormal [facility] Progress Noteon 04-07-2025 Progress [facility] Progress Note Normal [facility] Progress [facility] Normal [facility] Progress [facility] Normal [facility] [id number] 04-06-2025 [id number] Normal [facility] CBC W Auto Differential pane l (Bld)Ordered By: Annmarie Zuñiga on 04-06-2025 Hematocrit (Bld) [Volume fraction] 27.2 % Low 40.0 - 52.0 % [facility] Hemoglobin (Bld) [Mass/Vol] 7.6 g/dL Low 13.0 - 18.0 g/dL [facility] MCH (RBC) [Entitic mass] 22 pg Low 26. 0 - 34.0 pg [facility] MCV (RBC) [Entitic vol] 78.6 fL 77.0 - 99.0 fL [facility] RBC (Bld) [#/Vol] 3.46 10*6/uL Low 4.40 - 5.9 0 10*6/uL [facility] CBC WITH AUTO DIFFERENTIALon 04-06-2025 Erythrocyte distribution width (RBC) [Ratio] 20.5 % High 11.5-15.0 [facility] Comment on above: Performed By: #### L [id number], [id number] ####Security Control Room Officer: UNA ARCE ([id number])[facility] (SBHLAB)[address] [place] [address] Hematocrit (Bld) [Volume fraction] 27.2 % Low 40.0-52.0 [facility] Comment on above: Performed By: #### L [id number], [id number] ####Security Control Room Officer: UNA ARCE ([id number])[facility] [place] [address] Hemoglobin (Bld) [Mass/Vol] 7.6 g/dL Low 13.0-18.0 [facility] Comment on above: Performed By: #### L [id number], [id number] ####Security Control Room Officer: UNA ARCE ([phone])[facility] ([facility])[address] [place] [address] MCH (RBC) [Entitic mass] 22.0 pg Low 26.0-34.0 [facility] Comment on above: Performed By: #### L [id number], [id number] ####Security Control Room Officer: UNA ARCE ([id number])[facility] (SBHLAB)[address] [place] [address] MCHC 27.9 % Low 30.5-36.0 [facility] Comment on above: Performed By: #### L [id number], [id number] ####Security Control Room Officer: UNA ARCE ([phone])[facility] (SBHLAB)[address] [place] [address] MCV (RBC) [Entitic vol] 78.6 fL Normal 77.0-99.0 [facility] Comment on above: Performed By: #### L [id number], [id number] ####Security Control Room Officer: UNA ARCE ([id number])LYNETTE BASHIRMarisol (SBHLAB)[address] [place] [address] Platelet mean volume (Bld) [Entitic vol] 9.7 fL Normal 9.0-12.7 [facility] Comment on above: Performed By: #### L [id number], [id number] ####Security Control Room Officer: UNA ARCE ([id number])[facility] [place] (SBHLAB)[address] Platelets (Bld) [#/Vol] 344 10*3/uL Normal 140-440 [facility] Comment on above: Performed By: #### L [id number], [id number] ####Security Control Room Officer: UNA ARCE ([phone])[facility] [place] (SBHLAB)[address] [place] [address] RBC (Bld) [#/Vol] 3.46 10*6/uL Low 4.40-5.90 [facility] Comment on above: Performed By: #### L [id number], [id number] ####Security Control Room Officer: UNA ARCE ([phone])[facility]Angel BASHIRMarisol (SBHLAB)[address] [place] [address] WBC (Bld) [#/Vol] 10.3 10*3/uL Normal 3.6-10.7 [facility] Comment on above: Performed By: #### L [id number], [id number] ####Security Control Room Officer: UNA ARCE ([phone])[facility] [place] (SBHLAB)[address] COMPREHENSIVE METABOLIC PANE Anant 04-06-2025 Albumin [Mass/Vol] 2.6 g/dL Low 3.4-4.8 [facility] Comment on above: Performed By: #### L AB17, [id number] ####Security Control Room Officer: UNA ARCE ([phone])[facility] [place] (SBHLAB)[address] ALP [Catalytic activity/Vol] 63 U/L Normal 40-150 [facility] Comment on above: Performed By: #### L AB17, [id number] ####Security Control Room Officer: UAN ARCE ([phone])[facility] [place] (SBHLAB)[address] [place] [address] [place] ALT [Catalytic activity/Vol] 6 U/L Normal <40 [facility] Comment on above: Performed By: #### L AB17, [id number] ####Security Control Room Officer: UNA ARCE ([id number])[facility] [place] (SBHLAB)[address] Anion gap [Moles/Vol] 13 mmol/L Normal 3-13 [facility] Comment on above: Performed By: #### L AB17, [id number] ####Security Control Room Officer: UNA ARCE ([id number])[facility] [place] (SBHLAB)[address] AST [Catalytic activity/Vol] 25 U/L Normal <34 [facility] Comment on above: Performed By: #### L AB17, [id number] ####Security Control Room Officer: UNA ARCE ([id number])[facility] [place] (SBHLAB)[address] Bilirubin [Mass/Vol] 1.7 mg/dL High <1.2 [facility] Comment on above: Performed By: #### L AB17, [id number] ####Security Control Room Officer: UNA ARCE ([phone])[facility] [place] (SBHLAB)[address] [place] [address] [place] Calcium [Mass/Vol] 8.2 mg/dL Low 8.8-10.0 [facility] Comment on above: Performed By: #### L AB17, [id number] ####Security Control Room Officer: UNA ARCE ([phone])[facility] [place] (SBHLAB)[address] Chloride [Moles/Vol] 104 mmol/L Normal 98-107 [facility] Comment on above: Performed By: #### L AB17, [id number] ####Security Control Room Officer: UNA ARCE ([id number])[facility] (SBHLAB)[address] CO2 [Moles/Vol] 26 mmol/L Normal 23-31 [facility] Comment on above: Performed By: #### L AB17, [id number] ####Security Control Room Officer: UNA ARCE ([id number])[facility] (SBHLAB)[address] Creatinine [Mass/Vol] 1.44 mg/dL High 0.72-1.25 [facility] Comment on above: Performed By: #### L AB17, [id number] ####Security Control Room Officer: UNA ARCE ([id number])[facility] (SBHLAB)[address] GLOMERULAR FILTRATION RATE ML/MIN/1.73 SQ M.PREDICTED 46.4 mL/min/1.73m*2 Low >60.0 [facility] Comment on above: Result Comment: Calc ulation based on the Chronic Kidney Disease Epidemiology Collaboration (CKD-EPI) equation refit without adjustment for race Performed By: #### L AB17, [id number] ####Security Control Room Officer: UNA ARCE ([id number])[facility] (SBHLAB)[address] Glucose [Mass/Vol] 98 mg/dL Normal 82-115 [facility] Comment on above: Performed By: #### L AB17, [id number] ####Security Control Room Officer: UNA ARCE ([phone])[facility] (SBHLAB)[address] Potassium [Moles/Vol] 4.2 mmol/L Normal 3.5-5.1 [facility] Comment on above: Result Comment: [facility] potassium values may be up to 0.5 mmol/L lower than serum values. Performed By: #### L AB17, [id number] ####Security Control Room Officer: UNA MOHRCER ([phone])[facility]Angel [place] (SBHLAB)[address] [address]RE[address] Protein [Mass/Vol] 6.1 g/dL Low 6.4-8.3 [facility] Comment on above: Performed By: #### L AB17, [id number] ####Security Control Room Officer: UNA BERMUDEZPEDRO ([id number])[facility] [place] (SBHLAB)[address] Sodium [Moles/Vol] 143 mmol/L Normal 136-145 [facility] Comment on above: Performed By: #### L AB17, [id number] ####Security Control Room Officer: UNA BERMUDEZPEDRO ([phone])[facility] ESC[facility] (SBHLAB)[address] Urea nitrogen [Mass/Vol] 24 mg/dL High 9-23 [facility] Comment on above: Performed By: #### L AB17, [id number] ####Security Control Room Officer: UNA BERMUDEZPEDRO ([phone])[facility] ESC[facility] (SBHLAB)[address] ABDOMEN PELVIS WO IV CONT RASTon 04-06-2025 CT ABDOMEN PELVIS WO IV CONTRAST Normal [facility] CT Abdomen and Pelvis WO con traston 04-06-2025 [facility] Radiology Study observation (narrative) Lynette Balderrama alth CT Abdomen and Pelvis WO con trastOrdered By: Sergey Gooden on 04-06-2025 [facility] [employer] Phone: CT CHEST WO IV CONTRASTon CT CHEST WO IV CONTRAST Normal [facility] CT Chest WO contraston 04-06 [facility] Radiology Study observation (narrative) Monishaangel Balderrama alth CT Chest WO contrastOrdered By: Cari Lazaro on 04-06-2025 [facility] [employer] Phone: Consulton 04-06-2025 Consult Normal [facility] Consult Normal [facility] ECG 12-LEADon 04-06-2025 ECG 12-LEAD IMPRESSION: Sinus arrhythmia Nonspecific intraventricular conduction delay Probable anterolateral infarct, old No previous ECG for comparison Electronically Signed On 04-06-2025 01:54:21 EDT by Maik Laird Normal [facility] IRON AND TIBCon 04-06-2025 IRON BINDING CAPACITY 381 ug/dL Normal 250-450 [facility] Comment on above: Performed By: #### L [id number] ####Security Control Room Officer: UNA ARCE ([phone])[facility] [place] (SBHLAB)[address] IRON SATURATION 49.3 % Normal 20.0-50.0 [facility] Comment on above: Performed By: #### L [id number] ####Security Control Room Officer: UNA ARCE ([id number])[facility] [place] (SBHLAB)[address] IRON, TOTAL 188 ug/dL High 65-175 [facility] Comment on above: Performed By: #### L [id number] ####Security Control Room Officer: UNA ARCE ([id number])[facility] [place] (SBHLAB)[address] Laboratory - Hematology and Cell countson 04-06-2025 Basophils (Bld) [#/Vol] 0.2 10*3/uL 0.0 - 0.2 10*3/uL [facility] Basophils/100 WBC (Bld) 2 % 0 - 2 % [facility] Lymphocytes (Bld) [#/Vol] 1.4 10*3/uL 1.0 - 4.3 10*3/uL [facility] Lymphocytes/100 WBC (Bld) 14 % Low 15 - 45 % [facility] Monocytes (Bld) [#/Vol] 0.7 10*3/uL 0.0 - 0.9 10*3/uL [facility] Monocytes/100 WBC (Bld) 7 % 5 - 13 % [facility] RBC morphology finding Nom (Bld) abnormal [facility] MAGNESIUMon 04-06-2025 Magnesium [Mass/Vol] 1.8 mg/dL Normal 1.6-2.6 [facility] Comment on above: Result Comment: ORDE R COMMENTS:Higher values can be expected in females during menses. Performed By: #### L AB17, [id number] ####Security Control Room Officer: UNA ARCE ([phone])[facility] (SBHLAB)[address] MANUAL DIFFERENTIAL (CELLAVI BANDAR)on 04-06-2025 ANISOCYTOSIS PRESENCE IN BLOOD BY LIGHT MICROSCOPY Moderate Abnormal (none) [facility] Comment on above: Performed By: #### L [id number], [id number] ####Security Control Room Officer: UNA ARCE ([phone])[facility] (SBHLAB)[address] BAND NEUTROPHILS TOTAL PER COUNTED LEUKOCYTES BY MANUAL COUNT 1 Normal [facility] Comment on above: Performed By: #### L [id number], [id number] ####Security Control Room Officer: UNA ARCE ([phone])[facility] [place] (SBHLAB)[address] BANDS (10*3/UL) IN BLOOD-CELLAVISION 0.1 10*3/uL High <=0.0 [facility] Comment on above: Performed By: #### L [id number], [id number] ####Security Control Room Officer: UNA ARCE ([id number])[facility] (SBHLAB)[address] [place] [address] [place] BASOPHILS (10*3/UL) IN BLOOD-CELLAVISION 0.2 10*3/uL Normal 0.0-0.2 [facility] Comment on above: Performed By: #### L [id number], [id number] ####Security Control Room Officer: UNA ARCE ([id number])[facility] (SBHLAB)[address] BASOPHILS TOTAL PER COUNTED LEUKOCYTES BY MANUAL COUNT 2 Normal [facility] Comment on above: Performed By: #### L [id number], [id number] ####Security Control Room Officer: UNA YAZMIN ([id number])[facility] [place] (SBHLAB)[address] [place] [address] [place] BASOPHILS/100 LEUKOCYTES IN BLOOD-CELLAVISION 2 % Normal 0-2 [facility] Comment on above: Performed By: #### L [id number], [id number] ####Security Control Room Officer: UNA BERMUDEZPEDRO ([phone])[facility] [place] (SBHLAB)[address] [place] [address] [place] BLASTS TOTAL PER COUNTED LEUKOCYTES BY MANUAL COUNT Normal [facility] Comment on above: Performed By: #### L [id number], [id number] ####Security Control Room Officer: UNA BERMUDEZPEDRO ([id number])[facility] [place] (SBHLAB)[address] [place] [address] [place] EOSINOPHILS TOTAL PER COUNTED LEUKOCYTES BY MANUAL COUNT Normal [facility] Comment on above: Performed By: #### L [id number], [id number] ####Security Control Room Officer: UNA BERMUDEZPEDRO ([id number])[facility] [place] (SBHLAB)[address] [place] [address] [place] HYPOCHROMIA (PRESENCE) IN BLOOD BY LIGHT MICROSCOPY Moderate Abnormal (none) [facility] Comment on above: Performed By: #### L [id number], [id number] ####Security Control Room Officer: UNA BERMUDEZPEDRO ([id number])[facility] [place] (SBHLAB)[address] [place] [address] [place] LYMPHOCYTES (10*3/UL) IN BLOOD-CELLAVISION 1.4 10*3/uL Normal 1.0-4.3 [facility] Comment on above: Performed By: #### L [id number], [id number] ####Security Control Room Officer: UNA BERMUDEZPEDRO ([id number])[facility] [place] (SBHLAB)[address] [place] [address] [place] LYMPHOCYTES TOTAL PER COUNTED LEUKOCYTES BY MANUAL COUNT 14 Normal [facility] Comment on above: Performed By: #### L [id number], [id number] ####Security Control Room Officer: UNA STAUFFERMELANIE ([id number])[facility] [place] (SBHLAB)[address] [place] [address] [place] LYMPHOCYTES/100 LEUKOCYTES IN BLOOD-CELLAVISION 14 % Low 15-45 [facility] Comment on above: Performed By: #### L [id number], [id number] ####Security Control Room Officer: UNA BERMUDEZPEDRO ([phone])[facility] [place] (SBHLAB)[address] [place] [address] [place] METAMYELOCYTES TOTAL PER COUNTED LEUKOCYTES BY MANUAL COUNT Normal [facility] Comment on above: Performed By: #### L [id number], [id number] ####Security Control Room Officer: UNA BERMUDEZPEDRO ([id number])[facility] [place] (SBHLAB)[address] [place] [address] [place] MICROCYTES (PRESENCE) IN BLOOD BY LIGHT MICROSCOPY Slight Abnormal (none) [facility] Comment on above: Performed By: #### L [id number], [id number] ####Security Control Room Officer: UNA BERMUDEZPEDRO ([id number])[facility] [place] (SBHLAB)[address] [place] [address] [place] MONOCYTES (10*3/UL) IN BLOOD-CELLAVISION 0.7 10*3/uL Normal 0.0-0.9 [facility] Comment on above: Performed By: #### L [id number], [id number] ####Security Control Room Officer: UNA ARCE ([id number])[facility] [place] (SBHLAB)[address] [place] [address] [place] MONOCYTES TOTAL PER COUNTED LEUKOCYTES BY MANUAL COUNT 7 Normal [facility] Comment on above: Performed By: #### L [id number], [id number] ####Security Control Room Officer: UNA STAUFFERMELANIE ([id number])[facility] [place] (SBHLAB)[address] [place] [address] [place] MONOCYTES/100 LEUKOCYTES IN BLOOD-LUCIANA 7 % Normal 5-13 [facility] Comment on above: Performed By: #### L [id number], [id number] ####Security Control Room Officer: UNA ARCE ([id number])[facility] [place] (SBHLAB)[address] [place] [address] [place] MYELOCYTES COUNTED BY MANUAL COUNT Normal [facility] Comment on above: Performed By: #### L [id number], [id number] ####Security Control Room Officer: UNA ARCE ([id number])[facility] [place] (SBHLAB)[address] [place] [address] [place] NEUTROPHILS BAND FORM/100 LEUKOCYTES IN BLOOD-CELLAVISI 1 % High <=0 [facility] Comment on above: Performed By: #### L [id number], [id number] ####Security Control Room Officer: UNA ARCE ([id number])[facility] [place] (SBHLAB)[address] [place] [address] [place] NEUTROPHILS TOTAL PER COUNTED LEUKOCYTES BY MANUAL COUNT 79 Normal [facility] Comment on above: Performed By: #### L [id number], [id number] ####Security Control Room Officer: UNA ARCE ([id number])[facility] [place] (SBHLAB)[address] [place] [address] [place] NUCLEATED ERYTHROCYTES/100 LEUKOCTES IN BLOOD-CELLAVISION 1 % Normal 0-2 [facility] Comment on above: Performed By: #### L [id number], [id number] ####Security Control Room Officer: UNA ARCE ([phone])[facility] [place] (SBHLAB)[address] [place] [address] [place] POIKILOCYTOSIS (PRESENCE) IN BLOOD BY LIGHT MICROSCOPY Slight Abnormal (none) [facility] Comment on above: Performed By: #### L [id number], [id number] ####Security Control Room Officer: UNA ARCE ([phone])[facility] [place] (SBHLAB)[address] [place] [address] [place] PROMYELOCYTES TOTAL PER COUNTED LEUKOCYTES BY MANUAL COUNT Normal [facility] Comment on above: Performed By: #### L [id number], [id number] ####Security Control Room Officer: UNA ARCE ([id number])[facility] [place] (SBHLAB)[address] [place] [address] [place] RBC MORPHOLOGY IN BLOOD abnormal Normal [facility] Comment on above: Performed By: #### L [id number], [id number] ####Security Control Room Officer: UNA ARCE ([id number])[facility] [place] (SBHLAB)[address] [place] [address] [place] SEGMENTED NEUTROPHILS (10*3/UL) IN BLOOD-CELLAVISION 8.0 10*3/uL High 1.8-7.5 [facility] Comment on above: Performed By: #### L [id number], [id number] ####Security Control Room Officer: UNA ARCE ([id number])[facility] [place] (SBHLAB)[address] [place] [address] [place] SEGMENTED NEUTROPHILS/100 LEUKOCYTES-CE 77 % Normal 38-82 [facility] Comment on above: Performed By: #### L [id number], [id number] ####Security Control Room Officer: UNA ARCE ([id number])[facility] [place] (SBHLAB)[address] [place] [address] [place] STOMATOCYTES IN BLOOD BY LIGHT MICROSCOPY Slight Abnormal (none) [facility] Comment on above: Performed By: #### L [id number], [id number] ####Security Control Room Officer: UNA ARCE ([id number])[facility] [place] (SBHLAB)[address] [place] [address] [place] UNCLASSIFIED CELLS TOTAL PER COUNTED LEUKOCYTES BY MANUAL COUNT [facility] Comment on above: Performed By: #### L [id number], [id number] ####Security Control Room Officer: UNA ARCE ([id number])[facility] [place] (SBHLAB)[address] [place] [address] [place] VARIANT LYMPHOCYTES TOTAL PER COUNTED LEUKOCYTES BY MANUAL COUNT Normal [facility] Comment on above: Performed By: #### L [id number], [id number] ####Security Control Room Officer: UNA ARCE ([id number])[facility] [place] (SBHLAB)155 [place] [address] [facility] Nursing Noteon 04-06-2025 Nursing Note Normal [facility] Nursing Note Transfused two pint of blood. No any allergic reaction seen.vital signs are within normal limits. Normal [facility] Progress Noteon 04-06-2025 [facility] US Heart TransthoracicOrdere d By: Thomas Hinton on 04-06-2025 Ao Root Index 1.47 cm/m2 [facility] Work Phone: Aortic Root 3 cm [facility] Work Phone: Aortic valve Mean systole pressure gradient by US.doppler derived full Bernoulli 7 mmHg [facility] Work Phone: Aortic valve Orifice area by US 3.1 cm2 [facility] Work Phone: Aortic valve Peak systolic flow by US.doppler 1.3 m/s [facility] Work Phone: Ascending Aorta 3.1 cm [facility] Work Phone: Ascending Aorta Index 1.52 cm/m2 [facility] Work Phone: AV Area by Peak Velocity 1.5 cm2 [facility] Work Phone: AV Area by VTI 1.3 cm2 [facility] Work Phone: AV Peak Gradient 15 mmHg [facility] Work Phone: AV Peak Velocity 1.9 m/s [facility] Work Phone: AV Velocity Ratio 0.47 [facility] Work Phone: AV VTI 37.4 cm [facility] Work Phone: JULIET/BSA Peak Velocity 0.7 cm2/m2 [facility] Work Phone: JULIET/BSA VTI 0.6 cm2/m2 [facility] Work Phone: E/E' Lateral 23 [facility] Work Phone: Est. RA Pressure 15 mmHg [facility] Work Phone: Fractional Shortening 2D 8 % 28 - 44 % [facility] Work Phone: Interpretation and review of laboratory results Abnormal [facility] Work Phone: IVSd 1.1 cm Abnormal 0.6 - 1.0 cm [facility] Work Phone: LA Diameter 4 cm [facility] Work Phone: LA Size Index 1.96 cm/m2 [facility] Work Phone: LA Volume 4C 56 mL 18 - 58 mL [facility] Work Phone: LA Volume Index 4C 27 mL/m2 16 - 34 mL/m2 [facility] Work Phone: LA/AO Root Ratio 1.33 [facility] Work Phone: Left ventricular Ejection fraction by US.2D+Calculated by biplane method of disks 22 % Abnormal 55 - 100 % [facility] Work Phone: LV E' Lateral Velocity 5 cm/s [facility] Work Phone: LV EDV A2C 331 mL [facility] Work Phone: LV EDV A4C 293 mL [facility] Work Phone: LV EDV BP 315 mL Abnormal 67 - 155 mL [facility] Work Phone: LV EDV Index A2C 162 mL/m2 [facility] Work Phone: LV EDV Index A4C 144 mL/m2 [facility] Work Phone: LV EDV Index BP 154 mL/m2 [facility] Work Phone: LV Ejection Fraction A2C 26 % [facility] Work Phone: LV Ejection Fraction A4C 22 % [facility] Work Phone: LV ESV A2C 245 mL [facility] Work Phone: LV ESV A4C 229 mL [facility] Work Phone: LV ESV BP 247 mL Abnormal 22 - 58 mL [facility] Work Phone: LV ESV Index A2C 120 mL/m2 [facility] Work Phone: LV ESV Index A4C 112 mL/m2 [facility] Work Phone: LV ESV Index BP 121 mL/m2 [facility] Work Phone: LV Mass 2D 246.9 g Abnormal 88 - 224 g [facility] Work Phone: LV Mass 2D Index 121 g/m2 Abnormal 49 - 115 g/m2 [facility] Work Phone: LV RWT Ratio 0.3 [facility] Work Phone: LVIDd 6 cm Abnormal 4.2 - 5.9 cm [facility] Work Phone: LVIDd Index 2.94 cm/m2 [facility] Work Phone: LVIDs 5.5 cm [facility] Work Phone: LVIDs Index 2.7 cm/m2 [facility] Work Phone: LVOT Cardiac Output 3.2 liter/minute [facility] Work Phone: LVOT Diameter 2 cm [facility] Work Phone: LVOT Mean Gradient 2 mmHg [facility] Work Phone: LVOT Peak Gradient 3 mmHg [facility] Work Phone: LVOT Peak Velocity 0.9 m/s [facility] Work Phone: LVOT Stroke Volume Index 23.2 mL/m2 [facility] Work Phone: LVOT SV 47.4 ml [facility] Work Phone: LVOT VTI 15.1 cm [facility] Work Phone: LVOT:AV VTI Index 0.4 [facility] Work Phone: LVPWd 0.9 cm 0.6 - 1.0 cm [facility] Work Phone: MR VTI 139.2 cm [facility] Work Phone: MV A Velocity 1.12 m/s [facility] Work Phone: MV E Velocity 1.15 m/s [facility] Work Phone: MV E Wave Deceleration Time 179.2 ms [facility] Work Phone: MV E/A 1.03 [facility] Work Phone: MV Nyquist Velocity 36 cm/s [facility] Work Phone: MV Regurg Velocity PISA 4.6 m/s [facility] [employer] Work Phone: RA Area 4C 34.5 mL [facility] Work Phone: RV Free Wall Peak S' 13 cm/s [facility] Work Phone: RVSP 66 mmHg [facility] Work Phone: TAPSE 2.4 cm 1.7 cm [facility] Work Phone: TR Max Velocity 3.58 m/s [facility] Work Phone: TR Peak Gradient 51 mmHg [facility] Work Phone: [facility] Work Phone: US Heart Transthoracicon CV CPACS BASIC METABOLIC PANELon 03-10 Anion gap [Moles/Vol] 8 mmol/L Normal 3-13 [facility] Comment on above: Performed By: #### L AB67, LAB15, [id number], LAB20, LAB69, [id number], [id number], [id number] ####Security Control Room Officer: UNA ARCE ([phone])[facility] [place] (SBHLAB)[address] Calcium [Mass/Vol] 8.4 mg/dL Low 8.8-10.0 [facility] Comment on above: Performed By: #### L AB67, LAB15, [id number], LAB20, LAB69, [id number], [id number], LAB89 ####Security Control Room Officer: UNA ARCE ([id number])[facility] (SBHLAB)[address] Chloride [Moles/Vol] 105 mmol/L Normal 98-107 [facility] Comment on above: Performed By: #### L AB67, LAB15, [id number], LAB20, LAB69, [id number], [id number], LAB89 ####Security Control Room Officer: UNA ARCE ([id number])[facility] (SBHLAB)[address] CO2 [Moles/Vol] 27 mmol/L Normal 23-31 [facility] Comment on above: Performed By: #### L AB67, LAB15, [id number], LAB20, LAB69, [id number], [id number], LAB89 ####Security Control Room Officer: NUA ARCE ([phone])[facility] (SBHLAB)[address] Creatinine [Mass/Vol] 1.46 mg/dL High 0.72-1.25 [facility] Comment on above: Performed By: #### L AB67, LAB15, [id number], LAB20, LAB69, [id number], [id number], LAB89 ####Security Control Room Officer: UNA ARCE ([id number])[facility] (SBHLAB)[address] GLOMERULAR FILTRATION RATE ML/MIN/1.73 SQ M.PREDICTED 45.7 mL/min/1.73m*2 Low >60.0 [facility] Comment on above: Result Comment: Calc ulation based on the Chronic Kidney Disease Epidemiology Collaboration (CKD-EPI) equation refit without adjustment for race Performed By: #### L AB67, LAB15, [id number], LAB20, LAB69, [id number], [id number], LAB89 ####Security Control Room Officer: UNA ARCE ([id number])[facility] (SBHLAB)[address] Glucose [Mass/Vol] 108 mg/dL Normal 82-115 [facility] Comment on above: Performed By: #### L AB67, LAB15, [id number], LAB20, LAB69, [id number], [id number], LAB89 ####Security Control Room Officer: UNA ARCE ([id number])[facility] (SBHLAB)[address] Potassium [Moles/Vol] 4.5 mmol/L Normal 3.5-5.1 [facility] Comment on above: Result Comment: [facility] potassium values may be up to 0.5 mmol/L lower than serum values. Performed By: #### L AB67, LAB15, [id number], LAB20, LAB69, [id number], [id number], LAB89 ####Security Control Room Officer: UNA ARCE ([id number])[facility] ([facility] Sodium [Moles/Vol] 140 mmol/L Normal 136-145 [facility] Comment on above: Performed By: #### L AB67, LAB15, [id number], LAB20, LAB69, [id number], [id number], LAB89 ####Security Control Room Officer: UNA ARCE ([id number])[facility] (HLAB)[address] Urea nitrogen [Mass/Vol] 24 mg/dL High 9-23 [facility] Comment on above: Performed By: #### L AB67, LAB15, [id number], LAB20, LAB69, [id number], [id number], LAB89 ####Security Control Room Officer: UNA ARCE ([id number])[facility] (HLAB)[address] BLOOD TYPE AND SCREEN GELon 04-05-2025 ABO GROUPING A Normal [facility] Comment on above: Performed By: #### L [id number] ####Security Control Room Officer: UNA ARCE ([id number])[facility] ([facility])[address] [place] [address] RH TYPE IN BLOOD Negative Normal [facility] Comment on above: Performed By: #### L AB276 ####Security Control Room Officer: UNA ARCE ([id number])[facility] ([facility])[address] CBC WITH AUTO DIFFERENTIALon 04-05-2025 Erythrocyte distribution width (RBC) [Ratio] 19.9 % High 11.5-15.0 [facility] Comment on above: Performed By: #### L AB296, [id number], [id number] ####Security Control Room Officer: UNA ARCE ([phone])[facility] ([facility])[address] [place] [address] Hematocrit (Bld) [Volume fraction] 20.7 % Low 40.0-52.0 [facility] Comment on above: Performed By: #### L AB296, [id number], [id number] ####Security Control Room Officer: UNA ARCE ([id number])[facility] ([facility])[address] [place] [address] Hemoglobin (Bld) [Mass/Vol] 5.5 g/dL Critically low 13.0-18.0 [facility] Comment on above: Performed By: #### L AB296, [id number], [id number] ####Security Control Room Officer: UNA ARCE ([id number])[facility] ([facility])[address] [place] [address] MCH (RBC) [Entitic mass] 19.4 pg Low 26.0-34.0 [facility] Comment on above: Performed By: #### L AB296, [id number], [id number] ####Security Control Room Officer: UNA ARCE ([id number])[facility] (SBHLAB)[address] MCHC 26.6 % Low 30.5-36.0 [facility] Comment on above: Performed By: #### L AB296, [id number], [id number] ####Security Control Room Officer: UNA ARCE ([phone])[facility] (SBHLAB)[address] MCV (RBC) [Entitic vol] 73.1 fL Low 77.0-99.0 [facility] Comment on above: Performed By: #### L AB296, [id number], [id number] ####Security Control Room Officer: UNA ARCE ([id number])[facility] (SBHLAB)[address] Platelet mean volume (Bld) [Entitic vol] 9.4 fL Normal 9.0-12.7 [facility] Comment on above: Performed By: #### Gilbert AB296, [id number], [id number] ####Security Control Room Officer: UNA ARCE ([phone])[facility] (SBHLAB)[address] Platelets (Bld) [#/Vol] 358 10*3/uL Normal 140-440 [facility] Comment on above: Performed By: #### L AB296, [id number], [id number] ####Security Control Room Officer: UNA ARCE ([phone])[facility] (SBHLAB)[address] RBC (Bld) [#/Vol] 2.83 10*6/uL Low 4.40-5.90 [facility] Comment on above: Performed By: #### L AB296, [id number], [id number] ####Security Control Room Officer: UNA ARCE ([id number])[facility] [place] (SBHLAB)[address] WBC (Bld) [#/Vol] 10.0 10*3/uL Normal 3.6-10.7 [facility] Comment on above: Performed By: #### L AB296, [id number], [id number] ####Security Control Room Officer: UNA ARCE ([id number])[facility] (SBHLAB)[address] [place] [address] ED Provider Noteon ED Provider Note Normal [facility] FERRITINon 04-05-2025 Ferritin [Mass/Vol] 19 ng/mL Low 22-275 [facility] Comment on above: Result Comment: YARELI [place] COMMENTS:Ferritin levels below 10 ng/mL have been reported as indicative of iron deficiency anemia. Performed By: #### L [id number], LAB18, LAB68 ####Security Control Room Officer: UNA ARCE ([id number])[facility] (SBHLAB)[address] [place] [address] FOLATEon 04-05-2025 FOLATE RESULT 13.7 ng/mL Normal 7.0-31.4 [facility] Comment on above: Performed By: #### L AB67, LAB15, [id number], LAB20, LAB69, [id number], [id number], LAB89 ####Security Control Room Officer: UNA ARCE ([id number])[facility] (SBHLAB)[address] [place] [address] HAPTOGLOBINon 04-05-2025 HAPTOGLOBIN 226 mg/dL Normal 50-270 [facility] Comment on above: Performed By: #### L AB67, LAB15, [id number], LAB20, LAB69, [id number], [id number], LAB89 ####Security Control Room Officer: UNA ARCE ([id number])[facility] (SBHLAB)[address] [place] [address] HEPATIC FUNCTION PANELon Albumin [Mass/Vol] 2.7 g/dL Low 3.4-4.8 [facility] Comment on above: Performed By: #### L AB67, LAB15, [id number], LAB20, LAB69, [id number], [id number], LAB89 ####Security Control Room Officer: UNA ARCE ([id number])[facility] (SBHLAB)[address] ALP [Catalytic activity/Vol] 65 U/L Normal 40-150 [facility] Comment on above: Performed By: #### L AB67, LAB15, MHI497, LAB20, LAB69, [id number], [id number], LAB89 ####Security Control Room Officer: UNA ARCE ([id number])[facility] (HLAB)[address] ALT [Catalytic activity/Vol] 7 U/L Normal <40 [facility] Comment on above: Performed By: #### L AB67, LAB15, [id number], LAB20, LAB69, [id number], [id number], LAB89 ####Security Control Room Officer: UNA ARCE ([id number])[facility] AST [Catalytic activity/Vol] 22 U/L Normal <34 [facility] Comment on above: Performed By: #### L AB67, LAB15, DUQ360, LAB20, LAB69, YMA545, [id number], LAB89 ####Security Control Room Officer: UNA ARCE ([id number])[facility] ([facility])[address] Bilirubin [Mass/Vol] 0.5 mg/dL Normal <1.2 [facility] Comment on above: Performed By: #### L AB67, LAB15, JXP627, LAB20, LAB69, EVJ488, [id number], LAB89 ####Security Control Room Officer: UNA ARCE ([id number])[facility] ([facility])[address] [place] [address] [place] Bilirubin.indirect [Mass/Vol] 0.2 mg/dL Normal <0.5 [facility] Comment on above: Performed By: #### L AB67, LAB15, POL110, LAB20, LAB69, [id number], [id number], LAB89 ####Security Control Room Officer: UNA ARCE ([id number])[facility] ([facility])[address] [place] [address] Protein [Mass/Vol] 6.4 g/dL Normal 6.4-8.3 [facility] Comment on above: Result Comment: Seru m protein values are higher than plasma values. Samples from recumbent persons are lower by up to 0.5 g/dL as compared to ambulatory persons. After 60 years values are lower by up to 0.2 g/dL. Performed By: #### L AB67, LAB15, EZF500, LAB20, LAB69, BIW259, [id number], LAB89 ####Security Control Room Officer: UNA ARCE ([id number])[facility] ([facility])[address] [place] [address] HIGH SENSITIVITY TROPONIN, S ERIAL BASELINEon 04-05-2025 TROPONIN HS SERIAL BASELINE 29 ng/L Normal <=35 [facility] Comment on above: Result Comment: In i ndividuals presenting with symptoms > 2h, a baseline troponin <= 5 ng/L suggests acutecardiac injury is unlikely and further serial testing is generally not indicated. Performed By: #### L [id number] ####Security Control Room Officer: UNA ARCE ([id number])[facility] ([facility])[address] [place] [address] TROPONIN HS SERIAL BASELINE 30 ng/L Normal <=35 [facility] Comment on above: Result Comment: In i ndividuals presenting with symptoms > 2h, a baseline troponin <= 5 ng/L suggests acutecardiac injury is unlikely and further serial testing is generally not indicated. Performed By: #### L AB67, LAB15, MVL169, LAB20, LAB69, QSQ187, [id number], LAB89 ####Security Control Room Officer: UNA ARCE ([id number])[facility] ([facility])[address] [place] [address] HIGH SENSITIVITY TROPONIN, S ERIAL, SECOND TESTon 04-05-2025 2H TROPONIN HS (SERIAL 2ND TROPONIN) 28 ng/L Normal <=35 [facility] Comment on above: Result Comment: 2h t roponin (2nd troponin) samples collected between 1h 40 min and 2h and 20 min of the baseline collection time can be utilized to interpret delta troponins as per [facility] algorithms. Samples collected outside this timeframe need to be interpreted clinically.Rising or falling troponin delta below 2 ng/L as compared to baseline value suggests thatacute cardiac injury is unlikely. Performed By: #### L [id number], LAB18, LAB68 ####Security Control Room Officer: UNA ARCE ([id number])[facility] [place] (SBHLAB)[address] LIPID PANELon 04-05-2025 Cholesterol [Mass/Vol] 89 mg/dL Normal <200 [facility] Comment on above: Performed By: #### Gilbert [id number], LAB18, LAB68 ####Security Control Room Officer: UNA ARCE ([id number])[facility] [place] (SBHLAB)[address] Cholesterol in HDL [Mass/Vol] 29 mg/dL Low >=60 [facility] Comment on above: Performed By: #### Gilbert [id number], LAB18, LAB68 ####Security Control Room Officer: UNA ARCE ([id number])[facility] (SBHLAB)[address] Cholesterol.total/Choles terol in HDL [Mass ratio] 3 {ratio} Normal [facility] Comment on above: Result Comment: Ref Range:< 3 Low Risk for CHD3-6 Mod Risk for CHD> 6 High Risk for CHD Performed By: #### L [id number], LAB18, LAB68 ####Security Control Room Officer: UNA ARCE ([id number])[facility] (SBHLAB)[address] LOW DENSITY LIPOPROTEIN 48 mg/dL Normal 0-<100 [facility] Comment on above: Performed By: #### L [id number], LAB18, LAB68 ####Security Control Room Officer: UNA ARCE ([id number])[facility] (SBHLAB)[address] NON-HDL CHOLESTEROL, CALCULATED 60 Normal <130 [facility] Comment on above: Performed By: #### L [id number], LAB18, LAB68 ####Security Control Room Officer: UNA ARCE ([id number])[facility] [place] (SBHLAB)[address] Triglyceride [Mass/Vol] 60 mg/dL Normal <150 [facility] Comment on above: Performed By: #### L [id number], LAB18, LAB68 ####Security Control Room Officer: UNA ARCE ([id number])[facility] (SBHLAB)[address] VERY LOW DENSITY LIPOPROTEIN, CALCULATED 12 mg/dL Normal <=30 [facility] Comment on above: Performed By: #### L [id number], LAB18, LAB68 ####Security Control Room Officer: UNA ARCE ([id number])[facility] [place] (SBHLAB)[address] MANUAL DIFFERENTIAL (CELLAVI BANDAR)on 04-05-2025 ANISOCYTOSIS PRESENCE IN BLOOD BY LIGHT MICROSCOPY Moderate Abnormal (none) [facility] Comment on above: Performed By: #### L AB296, [id number], [id number] ####Security Control Room Officer: UNA ARCE ([id number])[facility] (SBHLAB)[address] [place] [address] BAND NEUTROPHILS TOTAL PER COUNTED LEUKOCYTES BY MANUAL COUNT [facility] Comment on above: Performed By: #### L AB296, [id number], [id number] ####Security Control Room Officer: UNA ARCE ([id number])[facility] [place] (SBHLAB)[address] BASOPHILS TOTAL PER COUNTED LEUKOCYTES BY MANUAL COUNT [facility] Comment on above: Performed By: #### L AB296, [id number], [id number] ####Security Control Room Officer: UNA ARCE ([id number])[facility] [place] (SBHLAB)[address] [place] [address] [place] BLASTS TOTAL PER COUNTED LEUKOCYTES BY MANUAL COUNT Normal [facility] Comment on above: Performed By: #### L AB296, [id number], [id number] ####Security Control Room Officer: UNA ARCE ([id number])[facility] [place] (SBHLAB)[address] EOSINOPHILS TOTAL PER COUNTED LEUKOCYTES BY MANUAL COUNT Normal [facility] Comment on above: Performed By: #### L AB296, [id number], [id number] ####Security Control Room Officer: UNA ARCE ([id number])[facility] [place] (SBHLAB)[address] HYPOCHROMIA (PRESENCE) IN BLOOD BY LIGHT MICROSCOPY Moderate Abnormal (none) [facility] Comment on above: Performed By: #### L AB296, [id number], [id number] ####Security Control Room Officer: UNA ARCE ([id number])[facility] [place] (SBHLAB)[address] [place] [address] [place] LYMPHOCYTES (10*3/UL) IN BLOOD-CELLAVISION 1.4 10*3/uL Normal 1.0-4.3 [facility] Comment on above: Performed By: #### L AB296, [id number], [id number] ####Security Control Room Officer: UNA ARCE ([id number])[facility] [place] (SBHLAB)[address] [place] [address] [place] LYMPHOCYTES TOTAL PER COUNTED LEUKOCYTES BY MANUAL COUNT 15 Normal [facility] Comment on above: Performed By: #### L AB296, [id number], [id number] ####Security Control Room Officer: UNA ARCE ([id number])[facility] [place] (SBHLAB)[address] [place] [address] [place] LYMPHOCYTES/100 LEUKOCYTES IN BLOOD-CELLAVISION 14 % Low 15-45 [facility] Comment on above: Performed By: #### L AB296, [id number], [id number] ####Security Control Room Officer: UNA ARCE ([id number])[facility] [place] (SBHLAB)[address] [place] [address] [place] METAMYELOCYTES TOTAL PER COUNTED LEUKOCYTES BY MANUAL COUNT Normal [facility] Comment on above: Performed By: #### L AB296, [id number], [id number] ####Security Control Room Officer: UNA BERMUDEZPEDRO ([id number])[facility] [place] (SBHLAB)[address] [place] [address] [place] MICROCYTES (PRESENCE) IN BLOOD BY LIGHT MICROSCOPY Slight Abnormal (none) [facility] Comment on above: Performed By: #### L AB296, [id number], [id number] ####Security Control Room Officer: UNA BERMUDEZPEDRO ([id number])[facility] [place] (SBHLAB)[address] [place] [address] [place] MONOCYTES (10*3/UL) IN BLOOD-CELLAVISION 1.3 10*3/uL High 0.0-0.9 [facility] Comment on above: Performed By: #### L AB296, [id number], [id number] ####Security Control Room Officer: UNA BERMUDEZPEDRO ([id number])[facility] [place] (SBHLAB)[address] [place] [address] [place] MONOCYTES TOTAL PER COUNTED LEUKOCYTES BY MANUAL COUNT 14 Normal [facility] Comment on above: Performed By: #### L AB296, [id number], [id number] ####Security Control Room Officer: UNA BERMUDEZPEDRO ([id number])[facility] [place] (SBHLAB)[address] [place] [address] [place] MONOCYTES/100 LEUKOCYTES IN BLOOD-LUCIANA 13 % Normal 5-13 [facility] Comment on above: Performed By: #### L AB296, [id number], [id number] ####Security Control Room Officer: UNA STAUFFERMELANIE ([id number])[facility] [place] (SBHLAB)[address] [place] [address] [place] MYELOCYTES COUNTED BY MANUAL COUNT Normal [facility] Comment on above: Performed By: #### L AB296, [id number], [id number] ####Security Control Room Officer: UNA YAZMIN ([id number])[facility] [place] (SBHLAB)[address] [place] [address] [place] NEUTROPHILS TOTAL PER COUNTED LEUKOCYTES BY MANUAL COUNT 76 Normal [facility] Comment on above: Performed By: #### L AB296, [id number], [id number] ####Security Control Room Officer: UNA YAZMIN ([id number])[facility] [place] (SBHLAB)[address] [place] [address] [place] NUCLEATED ERYTHROCYTES/100 LEUKOCTES IN BLOOD-CELLAVISION 1 % Normal 0-2 [facility] Comment on above: Performed By: #### L AB296, [id number], [id number] ####Security Control Room Officer: UNAANJEL ARCE ([id number])[facility] [place] (SBHLAB)[address] [place] [address] [place] OVALOCYTES PRESENCE IN BLOOD BY LIGHT MICROSCOPY Slight Abnormal (none) [facility] Comment on above: Performed By: #### L AB296, [id number], [id number] ####Security Control Room Officer: UNA YAZMIN ([id number])[facility] [place] (SBHLAB)[address] [place] [address] [place] POIKILOCYTOSIS (PRESENCE) IN BLOOD BY LIGHT MICROSCOPY Moderate Abnormal (none) [facility] Comment on above: Performed By: #### L AB296, [id number], [id number] ####Security Control Room Officer: UNA YAZMIN ([id number])[facility] [place] (SBHLAB)[address] [place] [address] [place] PROMYELOCYTES TOTAL PER COUNTED LEUKOCYTES BY MANUAL COUNT Normal [facility] Comment on above: Performed By: #### L AB296, [id number], [id number] ####Security Control Room Officer: UNA YAZMIN ([id number])[facility] [place] (SBHLAB)[address] [place] [address] [place] RBC MORPHOLOGY IN BLOOD abnormal Normal [facility] Comment on above: Performed By: #### L AB296, [id number], [id number] ####Security Control Room Officer: UNA ARCE ([id number])[facility] [place] (SBHLAB)[address] [place] [address] [place] SEGMENTED NEUTROPHILS (10*3/UL) IN BLOOD-CELLAVISION 7.2 10*3/uL Normal 1.8-7.5 [facility] Comment on above: Performed By: #### L AB296, [id number], [id number] ####Security Control Room Officer: UNA ARCE ([id number])[facility] [place] (SBHLAB)[address] [place] [address] [place] SEGMENTED NEUTROPHILS/100 LEUKOCYTES-CE 72 % Normal 38-82 [facility] Comment on above: Performed By: #### L AB296, [id number], [id number] ####Security Control Room Officer: UNA ARCE ([id number])[facility] [place] (SBHLAB)[address] [place] [address] [place] STOMATOCYTES IN BLOOD BY LIGHT MICROSCOPY Moderate Abnormal (none) [facility] Comment on above: Performed By: #### L AB296, [id number], [id number] ####Security Control Room Officer: UNA ARCE ([id number])[facility] [place] (SBHLAB)[address] T[employer] CELLS IN BLOOD BY LIGHT MICROSCOPY Slight Abnormal (none) [facility] Comment on above: Performed By: #### L AB296, [id number], [id number] ####Security Control Room Officer: UNA ARCE ([id number])[facility] [place] (SBHLAB)[address] [place] [address] [place] UNCLASSIFIED CELLS TOTAL PER COUNTED LEUKOCYTES BY MANUAL COUNT Normal [facility] Comment on above: Performed By: #### L AB296, [id number], [id number] ####Security Control Room Officer: UNA ARCE ([id number])[facility] [place] (SBHLAB)[address] [place] [address] [place] VARIANT LYMPHOCYTES TOTAL PER COUNTED LEUKOCYTES BY MANUAL COUNT Normal [facility] Comment on above: Performed By: #### L AB296, [id number], [id number] ####Security Control Room Officer: UNA ARCE ([phone])LYNETTE BASHIRMarisol (SBHLAB)[address] NT PRO BNPon 04-05-2025 Natriuretic peptide B (Bld) [Mass/Vol] 8438 pg/mL High <450 [facility] Comment on above: Performed By: #### L AB67, LAB15, RFZ215, LAB20, LAB69, HBI781, [id number], LAB89 ####Security Control Room Officer: UNA ARCE ([id number])[facility] [place] (SBHLAB)[address] RETICULOCYTESon 04-05-2025 Reticulocytes/100 RBC (Bld) 2.31 % Normal [facility] Comment on above: Result Comment: Newb orn < 5%Adults 0.4 - 2.0% Performed By: #### L AB296, [id number], [id number] ####Security Control Room Officer: UNA ARCE ([id number])[facility] [place] (SBHLAB)[address] THYROID STIMULATING HORMONEo n 04-05-2025 THYROID STIMULATING HORMONE 10.19 uIU/mL High 0.35-4.94 [facility] Comment on above: Performed By: #### L AB67, LAB15, SCH599, LAB20, LAB69, OMB559, [id number], LAB89 ####Security Control Room Officer: UNA ARCE ([id number])[facility] [place] (SBHLAB)[address] VITAMIN B12on 04-05-2025 Cobalamin (Vitamin B12) [Mass/Vol] 817 pg/mL High 213-816 [facility] Comment on above: Performed By: #### L AB67, LAB15, [id number], LAB20, LAB69, SBV920, [id number], LAB89 ####Security Control Room Officer: UNA ARCE ([id number])LYNETTE [place] (SBHLAB)[address] Vital Signs Date Time Vital Sign Value Performing Clinician Annalisai gerson 07-19-2025 19:12-0500 Diastolic blood pressure 78 mm[Hg] Josefina Rose MD Work Phone: [facility] [employer] 07-19-2025 19:12-0500 Heart rate 75 /min Josefina Rose MD Work Phone: [facility] [employer] 07-19-2025 19:12-0500 Respiratory rate 17 /min Josefina Rose MD Work Phone: [facility] [employer] 07-19-2025 19:12-0500 SaO2% (BldA) [Mass fraction] 100 % Josefina Rose MD Work Phone: [facility] [employer] 07-19-2025 19:12-0500 Systolic blood pressure 117 mm[Hg] Josefina Rose MD Work Phone: [facility] [employer] 07-19-2025 17:02-0500 Body temperature 98.1 [degF] Josefina Rose MD Work Phone: [facility] [employer] 06-22-2025 02:11-0400 Diastolic blood pressure 57 mm[Hg] S[facility]ombash [facility] 06-22-2025 02:11-0400 Heart rate 54 /min Sagar Gombash DO Work Phone: [employer] 06-22-2025 02:11-0400 Respiratory rate 18 /min Sagar Gombash DO Work Phone: [facility] [employer] 06-22-2025 02:11-0400 SaO2% (BldA) [Mass fraction] 97 % Sagar Gombash DO Work Phone: [employer] 06-22-2025 02:11-0400 Systolic blood pressure 105 mm[Hg] Sagar Gombash DO Work Phone: [facility] [employer] 06-22-2025 00:31-0400 Body temperature 98.2 [degF] Sagar Gombash DO Work Phone: [facility] [employer] 06-17-2025 10:47-0400 SaO2% (BldA) [Mass fraction] 95 % Eber Hess MD Work Phone: [facility] [employer] 06-17-2025 10:27-0400 Body height 174 cm Eber Hess MD Work Phone: [facility] [employer] 06-17-2025 10:27-0400 Body mass index (BMI) [Ratio] 27.3 kg/m2 Eber Hess MD Work Phone: [facility] [employer] 06-17-2025 10:27-0400 Body weight 82.64 kg Eber Hess MD Work Phone: [facility] [employer] 06-17-2025 10:27-0400 Diastolic blood pressure 58 mm[Hg] Eber Hess MD Work Phone: [facility] [employer] 06-17-2025 10:27-0400 Heart rate 70 /min Eber Hess MD Work Phone: [facility] [employer] 06-17-2025 10:27-0400 Systolic blood pressure 110 mm[Hg] Eber Hess MD Work Phone: [facility] [employer] 05-03-2025 10:13-0400 Body height 174 cm Alejandro Jonnyynkary APR N - PANEL BEATER Work Phone: [facility] [employer] 05-03-2025 10:13-0400 Body mass index (BMI) [Ratio] 28.09 kg/m2 Alejandro Queen SIGNAL WORKER HELPER - PANEL BEATER Work Phone: [facility] [employer] 05-03-2025 10:13-0400 Body weight 85.05 kg Alejandro Jonnyynick APR N - PANEL BEATER Work Phone: [facility] [employer] 05-03-2025 10:13-0400 Diastolic blood pressure 62 mm[Hg] Alejandro Jonnyynick SIGNAL WORKER HELPER - PANEL BEATER Work Phone: [facility] [employer] 05-03-2025 10:13-0400 Heart rate 66 /min Alejandro Jonnyynick APR N - PANEL BEATER Work Phone: [facility] [employer] 05-03-2025 10:13-0400 Systolic blood pressure 106 mm[Hg] Alejandro Queen SIGNAL WORKER HELPER - PANEL BEATER Work Phone: [employer] 04-17-2025 08:40-0400 Diastolic blood pressure 50 mm[Hg] Rowena Aguilar DO Work Phone: [employer] 04-17-2025 08:40-0400 Heart rate 62 /min Rowena Eliasffey DO Work Phone: [employer] 04-17-2025 08:40-0400 Respiratory rate 17 /min Rowena Aguilar DO Work Phone: [employer] 04-17-2025 08:40-0400 SaO2% (BldA) [Mass fraction] 96 % Rowena Lintony DO Work Phone: [employer] 04-17-2025 08:40-0400 Systolic blood pressure 104 mm[Hg] Rowena Lintony DO Work Phone: [employer] 04-17-2025 05:00-0400 Body mass index (BMI) [Ratio] 31.14 kg/m2 Rowena Lintony DO Work Phone: [employer] 04-17-2025 05:00-0400 Body weight 92.9 kg Rowena Aguilar DO Work Phone: [employer] 04-17-2025 01:47-0400 Body temperature 97.2 [degF] Rowena Lintony DO Work Phone: [employer] 04-16-2025 16:41-0400 Body height 172.7 cm Rowena Lintony DO Work Phone: [employer] 04-13-2025 04:37-0400 SaO2% (BldA) [Mass fraction] 95.1 % Rowena Lintony DO Work Phone: [employer] 04-08-2025 21:01-0400 SaO2% (BldA) [Mass fraction] 97 % Rowena Lintony DO Work Phone: [employer] 04-08-2025 17:02-0400 SaO2% (BldA) [Mass fraction] 96.1 % Rowena Aguilar DO Work Phone: [facility] Encounters Encounter Date Encounter Type Care Provider Facility Start: 07-19-2025 End: 07-19-2025 Emergency department patient visit PCP NONE [facility] Comment on above: Symptomatic anemia ( Primary Dx) Start: 07-19-2025 ambulatory Ravi MENSAH Facili ty:[facility] Start: 07-07-2025 ambulatory Ravi Murray ty:[facility] Start: 07-06-2025 End: 07-07-2025 Telephone encounter Eber Hess MD Work Phone: [facility] [employer] Start: 07-05-2025 ambulatory Ravi MENSAH Facili ty:[facility] Start: 06-28-2025 ambulatory Ravi MENSAH Facili ty:[facility] Start: 06-24-2025 End: 06-24-2025 Documentation procedure Yamilka Holloway SIGNAL WORKER HELPER - PANEL BEATER Work Phone: [facility] [place] Start: 06-24-2025 End: 06-25-2025 Telephone encounter Eber Hess MD Work Phone: [facility] [facility] [employer] Comment on above: Release of Informati on (BMP, vitals, and medication notes ) Start: 06-24-2025 ambulatory Ravi MENSAH Facili ty:[facility] Start: 06-21-2025 End: 06-22-2025 Emergency department patient visit Sagar Gilliam DO Work Phone: [facility] ED Comment on above: Anemia due to chroni c kidney disease, unspecified CKD stage (Primary Dx) Start: 06-21-2025 [facility] Facility :[facility] Start: 06-17-2025 End: 06-17-[address] [facility] Start: 06-17-2025 End: 06-17-[address] [facility] Start: 06-17-2025 End: 06-17-2025 Office outpatient visit 40 minutes Eber Hess MD Work Phone: [facility] Cardiology Jan Comment on above: Chronic systolic hea rt failure (HCC) (Primary Dx) Start: 05-06-2025 End: 05-12-2025 Home visit new pt unstabl/signif new prob 75 min Yamilkapradeep Holloway SIGNAL WORKER HELPER - PANEL BEATER Work Phone: [facility] Palliative Care - [place] Comment on above: Palliative care enco unter (Primary Dx); Pleural effusion; Acute on chronic heart failure, unspecified heart failure type (HCC); Debility Start: 05-03-2025 End: 05-03-2025 ambulatory ALEJANDRO QUEEN [facility] Start: 05-03-2025 End: 05-03-2025 Office outpatient visit 25 minutes Alejandro Queen SIGNAL WORKER HELPER - PANEL BEATER Work Phone: [facility] Cardiology - [place] Anaya Comment on above: Chronic systolic hea rt failure (HCC) (Primary Dx); 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; Pleural effusion; Acute kidney injury superimposed on chronic kidney disease (HCC) (HCC); 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 chronic kidney disease (HCC); PAC (premature atrial contraction); Abnormal CAT scan Start: 04-19-2025 End: 04-19-2025 Orders Only Katie Engle RN [facility] Palliative [facility] [place] Comment on above: Acute congestive hea rt failure, unspecified heart failure type (HCC) (Primary Dx) Start: 04-05-2025 End: 04-17-2025 Evaluation and management of inpatient Rowena Aguilar Work Phone: [facility] Cardiac Progressive Care Unit PCU 2E Start: 11-07-2020 End: 11-07-2020 Discharged Recurring [facility]-Immunizations Procedures Date Procedure Procedure Detail Performing Clinician Start: 07-19-2025 Blood typing serologic abo Josefina Rose MD Work Phone: Start: 07-19-2025 End: 07-19-2025 TRANSFUSE RED BLOOD CELLS Josefina Rose MD Work Phone: Start: 07-19-2025 Antibody screen ALEJANDRO QUEEN Comment on above: Performed By: #### L [id number] ####Security Control Room Officer: UNA NAVARRO ([id number])[facility] BLOOD [facility] ([facility])[address] Start: 07-19-2025 Blood count complete auto&auto [...] on above: Performed By: #### L [id number] ####Security Control Room Officer: UNA NAVARRO ([id number])[facility] BLOOD [facility] ([facility])[address] Start: 06-21-2025 Basic metabolic pane l [...] Phone: Start: 04-15-2025 BEDSIDE SPIROMETRY Lizeth Farmer SIGNAL WORKER HELPER - PANEL BEATER Work Phone: Start: 04-15-2025 Blood occult peroxid ase actv qual feces 1-3 spec Albaro Hernández MD Work Phone: Start: 04-15-2025 Radiologic exam ches t single view Yesi Farmer SIGNAL WORKER HELPER - PANEL BEATER Work Phone: Start: 04-15-2025 Comprehensive metabo lic panel Precious Lewis MD Work Phone: Start: 04-15-2025 Manual Differential panel - Blood Precious Lewis MD Work Phone: Start: 04-14-2025 OXYGEN THERAPY Precious dawn MD Work Phone: Start: 04-14-2025 Thoracentesis needle /cath pleura w/imaging Yesi Farmer SIGNAL WORKER HELPER - PANEL BEATER Work Phone: Start: 04-14-2025 Comprehensive metabo lic panel Precious Lewis MD Work Phone: Start: 04-14-2025 Manual Differential panel - Blood Precious Lewis MD Work Phone: Start: 04-13-2025 OXYGEN THERAPY Precious dawn MD Work Phone: Start: 04-13-2025 Radiologic exam ches t single view Marian Casarez SIGNAL WORKER HELPER - PANEL BEATER Work Phone: Start: 04-13-2025 Ecg routine ecg w/le ast 12 lds trcg only w/o i&r Marian Hawkinsmark SIGNAL WORKER HELPER - [facility] Work Phone: Start: 04-13-2025 Blood gases any comb ination ph pco2 po2 co2 hco3 Yesi Farmer SIGNAL WORKER HELPER [facility] Work Phone: Start: 04-13-2025 Comprehensive metabo lic [...] exam ches t single view Alejandro Queen SIGNAL WORKER HELPER [facility] Work Phone: Start: 04-11-2025 OXYGEN THERAPY Precious [...] on above: Performed By: #### L [id number] ####Security Control Room Officer: UNA NAVARRO ([id number])[facility] BLOOD BANK ([facility])[address] Start: 04-05-2025 ABO and Rh group [...] Activity Detail Author Start: 04-05-2030 Lipid panel [employer] Start: 06-21-2026 Creatinine measurement Creatinine Level [employer] Start: 06-21-2026 Potassium measurement Potassium Level [employer] Start: 06-17-2026 Creatinine measurement Creatinine Level [employer] Start: 06-17-2026 Potassium measurement Potassium Level [employer] Start: 04-17-2026 Creatinine measurement [employer] Start: 04-17-2026 Potassium measurement [facility] [employer] Start: 04-06-2026 Echocardiography Echocardiogram [employer] Start: 04-06-2026 [employer] Start: 11-03-2025 Depression Monitoring Depression Monitoring [employer] Start: 09-13-2025 End: 09-13-2025 Patient encounter procedure 09/13/2025 10:40 AM EST Office Visit [facility] - [place] [address] [place] [phone] Eber Hess MD [address] [place] [address] [facility] - [place] Start: 06-17-2025 End: 06-17-2025 Patient encounter procedure 06/17/2025 10:20 AM EDT Office Visit [facility] - [place] [address] [place] [phone] Eber Hess MD [address] [place] [address] [facility] - Jan Start: 05-18-2025 End: 05-18-2025 ambulatory [facility]monary and Sleep Medicine [facility] Start: 05-18-2025 End: 05-18-2025 Patient encounter procedure 05/18/2025 9:15 AM EDT Office Visit [facility] [address] [place] [address] Nelson Garcia MD [address] [facility] [address] [place] [address] [facility] Start: 05-10-2025 COVID-19 Vaccine ( season) COVID-19 Vaccine ( season) [facility] Start: 05-10-2025 Influenza vaccination Influenza Vaccine (#1) [facility] Start: 05-10-2025 [facility] Start: 04-22-2025 End: 04-22-2025 ambulatory [facility] - [place] Start: 04-22-2025 End: 04-22-2025 Patient encounter procedure 04/22/2025 10:00 AM EDT Office Visit [facility] - [place] [address] [place] [phone] Marian Casarez APRN - [place] [address] [address] [facility] - [place] Start: 05-10-2024 COVID-19 Vaccine ( season) COVID-19 Vaccine ( season) [facility] Start: 05-10-2024 [facility] Start: 2011 RSV Immunization for Adults (1 - 1-dose 75+ series) RSV Immunization for Adults (1 - 1-dose 75+ series) [facility] Start: 2011 [facility] Start: 1986 Zoster Vaccines (1 of 2) Zoster Vaccines (1 of 2) [facility] Start: 1986 [facility] Start: 1955 DTaP/Tdap/Td Vaccines (1 - Tdap) DTaP/Tdap/Td Vaccines (1 - Tdap) [facility] Start: 1955 Pneumococcal Vaccine: 50+ Years (1 of 2 - PCV) Pneumococcal Vaccine: 50+ Years (1 of 2 - PCV) [facility] Start: 1955 [facility] Start: 1948 Depression Monitoring Depression Monitoring [facility] Start: 1948 [facility] Start: 1936 Medicare Annual Wellness (AWV) Medicare Annual Wellness (AWV) [facility] Start: 1935 [facility] Bedside spirometry [facility] Work Phone: End: 04-05-2025 Hemoglobin [Mass/volume] in Blood [facility] Work Phone: End: 04-05-2025 Hemoglobin.gastrointestina l.lower [Presence] in Stool by Immunoassay --1st specimen [facility] Work Phone: Immunizations Immunization Date Immunization Notes Care Provider Fa cility 12-05-2020 Covid (Moderna) [facility] Work Phone: 11-07-2020 Covid (Modern) [facility] Work Phone: 06-30-2020 influenza virus vaccine, unspecified formulation Katie Engle RN [facility] [employer] Payers Date Payer Category Payer Self-pay [id number] 2017 [employer] Manuel Vargas Managed Care - [facility] [id number] 2017 Medicare supplementa l policy (as second payer) [id number] 2017 Unknown [id number] 2001 Medicare [id number] 2001 Medicare [id number] Unknown [id number] Unknown [id number] Unknown [id number] Unknown [id number] Unknown [id number] Unknown [id number] Social History Date Type Detail Facility Tobacco smoking stat us NHIS Unknown if ever smoked [facility] Work Phone: Start: 1935 Sex Assigned At Male W [facility] Work Phone: Start: 04-08-2025 End: 05-03-2025 Tobacco smoking status NHIS Never smoked tobacco [facility] Start: 04-08-2025 End: 05-03-2025 History of Social function [facility] Start: 04-08-2025 End: 05-03-2025 [facility] [employer] [facility] Has the [employer], [employer], or water [employer] threatened to shut off services in your home in past 12Mo No [facility] How often to you hav e a drink containing alcohol? Never [facility] How many standard drinks containing alcohol do you have on a typical day? [facility] (I/We) worried landon er (my/our) food would run out before (I/we) got money to buy more. Never true [facility] Start: 1935 Sex assigned at [facility] Start: 04-05-2025 Sex Male (finding) [facility] Start: 05-03-2025 End: 06-15-2025 Tobacco use and exposure Smokeless tobacco non-user [facility] Start: 06-15-2025 [facility] History of tobacco use Current smoker [facility] History of tobacco use Cigarette Smoker [facility] Start: 06-17-2025 Alcoholic beverage intake Ex-drinker (finding) [facility] Goals Date Patient Goal Desired Activity /State Functional Status Date Assessment Result Facility 07-19-2025 Total score [AUDIT-C] 0 07/19/20 10:59 AM Luci Mendez RN [facility] 05-03-2025 Patient Health Quest ionnaire 2 item (PHQ-2) [Reported] [facility] Clinical Notes 04-05-2025 to 07-19-2025 May Jarquin RN - 07/19/2025 7:14 PM Ephraim Jarquin RN - 07/19/2025 7:14 PM Ephraim Jaruqin RN - 07/19/2025 6:26 PM Ephraim Jarquin RN - 07/19/2025 5:28 PM ESTDischarge Instructions Note Date & Type Note Facility 07-19-2025 Emergency department Note [facility] arrived to transport pt to home facility . Pt transferred to stretcher without difficulty. Pt A&O, calm, and cooperative, no signs of distress noted. VS stable. Resp even, non labored. [facility] 07-19-2025 Emergency department Note [facility] arrived to transport pt to home facility . Pt transferred to stretcher without difficulty. Pt A&O, calm, and cooperative, no signs of distress noted. VS stable. Resp even, non labored. Report given to [facility]. Marleni Post H&H not needed per Dr. Rose. Ok to dc 30 mins after unit is complete. Meal order placed This RN sat bedside for the first 15 mins of blood transfusion. Pt denied c/o any transfusion reaction symptoms. Pt's vitals rechecked before leaving the room. [facility] ED EMERGENCY DEPARTMENT ENCOUNTER Pt Name: [...] 7.1 on 06/15/2025 patient is in a usp. Patient is wheelchair-bound. HPI Historian is the [...] AND HEMATOCRIT, BLOOD PREPARE RBC PRODUCT CODE [id number] Unit Number [id number] Unit ABO A Unit RH NEG Crossmatch interpretation COMP Dispense Status Transfused Blood Expiration Date [id number] Product Blood Type 0600 Unit Volume 300 [...] determinants of health affecting care: Lives in usp Shared decision making: Patient agrees to treatment plan ED Medications managed: Medications sodium chloride 0.9 % infusion (has no administration in time range) Prescription drugs prescribed: PROCEDURES: Unless otherwise noted below, none Procedures IMPRESSION 1. Symptomatic anemia DISPOSITION/PLAN DISPOSITION Discharge 07/19/2025 01:51:41 PM PATIENT REFERRED TO: Ravi Kirk DO [address] [place] [address] [address] [place] [address] In 1 week DISCHARGE MEDICATIONS: New Prescriptions No medications on file @[facility]([id number]:LAST:1)@ (Comment: Please notethis report has been produced [...] MD 07/19/25 1352 documented in this encounter [facility] 07-19-2025 Emergency department Note [facility] 07-19-2025 Emergency department Note Post H&H not needed per Dr. Rose. Ok to dc 30 mins after unit is complete. [facility] 07-19-2025 Emergency department Note Meal order placed [facility] 07-19-2025 Emergency department Note This RN sat bedside for the first 15 mins of blood transfusion. Pt denied c/o any transfusion reaction symptoms. Pt's vitals rechecked before leaving the room. [facility] 07-19-2025 Hospital Discharg e instructions Josefina Rose MD - 07/19/2025 1:52 PM EST Continue all current medications. Would recommend that you get a repeat CBC within 5 to 7 days. This can be done by your primary care physician. The following attachments cannot be sent through Care Everywhere.Normocytic Normochromic Anemia Discharge Instructions (Palestinian)documented in this encounter [facility] 07-19-2025 Physician Emergency department Note [facility] ED EMERGENCY DEPARTMENT ENCOUNTER Pt Name: [...] 7.1 on 06/15/2025 patient is in a usp. Patient is wheelchair-bound. HPI Historian is the [...] AND HEMATOCRIT, BLOOD PREPARE RBC PRODUCT CODE [id number] Unit Number [id number] Unit ABO A Unit RH NEG Crossmatch interpretation COMP Dispense Status Transfused Blood Expiration Date [id number] Product Blood Type 0600 Unit Volume 300 [...] determinants of health affecting care: Lives in usp Shared decision making: Patient agrees to treatment plan ED Medications managed: Medications sodium chloride 0.9 % infusion (has no administration in time range) Prescription drugs prescribed: PROCEDURES: Unless otherwise noted below, none Procedures IMPRESSION 1. Symptomatic anemia DISPOSITION/PLAN DISPOSITION Discharge 07/19/2025 01:51:41 PM PATIENT REFERRED TO: Ravi Kirk DO [address] [place] [id number] In 1 week DISCHARGE MEDICATIONS: New Prescriptions No medications on file @[facility]([id number]:LAST:1)@ (Comment: Please notethis report has been produced [...] Year: No Josefina Rose MD 07/19/25 1352 [facility] 07-07-2025 Telephone encounter Note Darby called back to verify the diuretic instructions; she had the Lasix written down, so I verified that it was actually torsemide. She verbalized understanding and was thankful for the call. [facility] 07-07-2025 Miscellaneous Notes Darby called back [...] called and spoke to nurse Khushboo from [facility]-she took verbal order for torsemide and notes they are continuing to follow his anemia with hemograms; is occult stool was negative. She was thankful for the call back. Images from the original note were not included. Cr 1.9, K+ 3.7, hemoglobin 7.1 on 07/05/25. BP's mostly 100-110's/50/60's; one SBP outlier of 94, one outlier of 121. HR's 60-70's. Note from nursing: [facility] faxed 07/05/25 BMP, and CBC, and vitals. Records to be scanned to chart. Sharita from [facility] called o report weight gain. 07/03: #189, 07/04: #191, 07/06: #191.4, and today #191.6. He had labs recently and HG is 7.1. She is faxing his recent vitals and labs. We scheduled follow up with 09/13/25. Otherwise he is feeling fine. documented in this encounter [facility] 07-07-2025 Telephone encounter Note Per Dr Hess "Ok to take etc 20 mg torsemide if weight gain, leg swelling or sob. Anemia - recommend followup with PCP and GI" I called and spoke to nurse Khushboo from [facility]-she took verbal order for torsemide and notes they are continuing to follow his anemia with hemograms; is occult stool was negative. She was thankful for the call back. [facility] 07-06-2025 Telephone encounter Note Images from the original note were not included. Cr 1.9, K+ 3.7, hemoglobin 7.1 on 07/05/25. BP's mostly 100-110's/50/60's; one SBP outlier of 94, one outlier of 121. HR's 60-70's. Note from nursing: [facility] 07-06-2025 Telephone encounter Note [facility] faxed 07/05/25 BMP, and CBC, and vitals. Records to be scanned to chart. [facility] 07-06-2025 Telephone encounter Note Sharita from [facility] called o report weight gain. 07/03: #189, 07/04: #191, 07/06: #191.4, and today #191.6. He had labs recently and HG is 7.1. She is faxing his recent vitals and labs. We scheduled follow up with 09/13/25. Otherwise he is feeling fine. [facility] 06-24-2025 History of Presen t illness Narrative Attempted to meet with pt. He no longer resides here. Facility uncertain where he has moved to. Message left on primary contacts number Bereket to return call to the palliative group at [phone] documented in this encounter [facility] 06-24-2025 Telephone encounter Note Per Dr Hess: "Would stop aldactone all together due to Cr 1.8 and low normal BP. Also stop hydralazine and see how bp is " I called and spoke to the nurse, Kylah at [facility] relaying note from Dr Hess. She [...] likely give him an additional torsemide today. [facility] 06-24-[address] Hess: "Would stop aldactone all together due to Cr 1.8 and low normal BP. Also stop hydralazine and see how bp is " I called and spoke to the nurseKylah at [facility] relaying note from Dr Hess. She [...] was 2.05 on 06/17/25. FYI: Went to [facility] ER on 06/21/25 for blood transfusion as HGB at facility was 6.9 when they checked it 06/21/25. Labs from [facility] Today: 06/24/25 BMP, blood pressure, pulse summary, and medication notes faxed from [facility]. Records scanned to Media. documented in this encounter [facility] 06-24-2025 Telephone encounter Note Images from [...] was 2.05 on 06/17/25. FYI: Went to [facility] ER on 06/21/25 for blood transfusion as HGB at facility was 6.9 when they checked it 06/21/25. Labs from [facility] Today: [facility] 06-24-2025 Telephone encounter Note 06/24/25 BMP, blood pressure, pulse summary, and medication notes faxed from [facility]. Records scanned to Media. [facility] 06-21-2025 Emergency department Note This RN at bedside for first 15 minutes of blood transfusion. Pt tolerating transfusion. VS updated in system. [facility] 06-21-2025 Emergency department Note This RN at bedside for first 15 minutes of blood transfusion. Pt tolerating transfusion. VS updated in system. Emergency Department Encounter [facility] ED Patient: Mary Charles : [...] the emergency department lab work today from snf facility showed hemoglobin of 6.8. Patient is [...] unit of blood and discharged back to snf facility. Diagnostics interpreted by me: I personally [...] DO 06/21/252211 Patient arrives via EMS from [facility] following bloodwork that showed low hemoglobin. No overt signs of bleeding on arrival. Patient A&O4. Patient does endorse previous blood transfusions. documented in this encounter [facility] 06-21-2025 Emergency department Triage note Patient arrives via EMS from [facility] following bloodwork that showed low hemoglobin. No overt signs of bleeding on arrival. Patient A&O4. Patient does endorse previous blood transfusions. [facility] 06-21-2025 Physician Emergency department Note Emergency Department Encounter [facility] ED Patient: Mary Charles : [...] the emergency department lab work today from [facility] showed hemoglobin of 6.8. Patient is [...] unit of blood and discharged back to snf facility. Diagnostics interpreted by me: I personally [...] [employer] Sagar Gilliam DO 06/21/252211 [facility] Work Phone: 06-17-2025 History of Presen t illness Narrative [facility] Cardiology [facility] CARDIOLOGY - [address] [facility] [address] Dept: [phone] Dept Visit type: Established : 1935 Chief Complaint: Chief Complaint Patient presents with Follow-up 6 Week History of Present Illness: Mray Charles is a 89 y.o. male with HFrEF, Coronary artery disease who is here for followup. Prior events : He presented to [facility] 03/2025 with progressive shortness of [...] tablet, Rfl: 1 documented in this encounter [facility] 05-06-2025 History of Presen t illness Narrative Images from the original note were not included. [facility] Palliative Care Site of Care: [facility] Chief Complaint: Mary Charles is [...] Falls: No Current Interventions: PT, OT, and detention Current Assistive Devices: walker and wheelchair ROS: See palliative care ROS/ESAS below; All other systems were reviewed and are negative. 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 [facility] CARDIOLOGY - [address] [facility] [address] Dept: [phone] Dept Visit type: Established : 1935 Reason [...] of EF 2. 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 Assessment & Plan: [...] weeks (around 06/14/2025). Wants to establish in [place]. Subjective No prior history as he has not been to a doctor for many years He presented to [facility] 03/2025 with progressive shortness of [...] history on file. documented in this encounter [facility] 05-03-2025 Evaluation + Plan note Associated Problem(s): Abnormal CAT scan CT abdomen with mural thickening involving the cecum and terminal ileum concern for neoplasm versus inflammation. Seen by GI with plan for EGD and colonoscopy once stable. -GI follow-up [facility] 05-03-2025 Miscellaneous Notes Associated Problem(s): Abnormal [...] today Associated Problem(s): 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 Suspected CAD causing [...] re-evaluation of EF documented in this encounter [facility] 05-03-2025 Evaluation + Plan note Associated Problem(s): PAC (premature atrial contraction) Noted to have irregular heart rhythm during hospitalization and multiple EKGs show sinus rhythm with frequent PACs. -Continue Toprol 25 mg p.o. daily [facility] 05-03-2025 Evaluation + Plan note Associated [...] discharge. Hgb 8.2 per labs 04/26/2025 from [facility]. -No aspirin due to anemia - continue to monitor [facility] 05-03-2025 Evaluation + Plan note Associated Problem(s): Acute kidney injury superimposed on chronic kidney disease (HCC) (HCC) Creatinine 1.46 on admission. Peak creatinine 1.78. Most recent creatinine 1.8 per labs 04/26/2025 - Continue to monitor - may have to accept a higher creatinine to keep him out of HF [facility] 05-03-2025 Evaluation + Plan note Associated Problem(s): Pleural effusion Bedside thoracentesis 04/09/2025 with 1 L removed from the left and 600 mL removed from the right. Repeat left thoracentesis 04/14/2025 with 600 mL removed. - continue to monitor, appears euvolemic today [facility] 05-03-2025 Evaluation + Plan note Associated Problem(s): 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 Suspected CAD causing HFrEF. NO angina. - no ASA 2/2 anemia - continue Toprol 25 mg po daily - continue atorvastatin 20 mg po daily - not a candidate or invasive workup due to anemia, advanced age and frailty [facility] 05-03-2025 Evaluation + Plan note Associated [...] in 3 months for re-evaluation of EF [facility] 04-19-2025 History of Presen t illness Narrative Pt was followed by the Palliative Care Team during hospitalization at [facility]. Provider is recommending continued Palliative follow up in the community. Referral made referral to [facility] Palliative Care SNF team. documented in this encounter [facility] 04-17-2025 Nurse Note Report given to Flor MYERS at [facility]. All belongings sent with patient, including eyewear. HL removed, site WNL. RN contacted TELEVISION ANNOUNCER Marleny concerning attempt to wean patient to [...] very aggressively. 2 RN , 2 nursing specialist were at bedside trying to calm [...] within normal limits. documented in this encounter [facility] 04-17-2025 Miscellaneous Notes Patient Choice Patient Name: MARY CHARLES Date of : 1935 Share Number: 0 Method of Sharing: electronic Date of Sharin2025-04-08 13:13:49.000 Responding Recipient: @[employer] Ranked Providers Sent Referral Rank: 2 Name: Monika Montoya [employer] Phone: [phone] Address: [address] [place] [id number] Rank: 3 [facility] [place] [employer] Phone: [phone] Address: [address] [place] [address] Rank: 1 Name: Jan FUENTES Member Phone: [phone] Address: [address] [place] [address] All Providers Sent Referral Name: Monika LOZOYA Phone: [phone] Address: [address] [place] [address] Name: Stefany Tidwell, Aishwarya. Phone: [phone] Address: [address] [place] [address] Name: Jan FUENTES Member Phone: [phone] Address: [address] [place] [address] Care Management Progress Note Short Medical why still here: Pending placement. Planned Discharge Disposition: Retirement Facility ([facility] SNF) Barriers/Today we still Wait: Clinical [...] Requested cot transport for 1230 via [facility]. [facility]-pins accepted for 1230. Notified bedside RN of transport time and number to call report. Notified facility of transport time and [facility] Spoke with daughter Anahy Charles at [phone] regarding transportation plan. Confirmed pickup time is 1230. Discussed patient may have a co-pay for ambulance depending on their individual insurance coverage. Advised daughter Anahy to call number on back of insurance card with questions or concerns. Tasked weekend TTC to follow for possible dc over the weekend. manager social media to follow and assist as needed. 7000 [...] at that facility if he chooses. -Tasked ARMHOLE SEWER to complete and upload into [employer] 7000. Barriers/Today we still Wait: Clinical stability, [...] still need placement at a facility. -manager social media to follow and assist as needed. Care [...] family later on Saturday. Planned Discharge Disposition: Retirement Facility vs hospice Barriers/Today we still Wait: Receiving IV medication, clinical stability, Post-discharge arrangement completion (SNF vs hospice) manager social media to follow and assist as needed. Length of Stay (Days): 9 GMLOS: 3.9 Family Communication Number Called: [phone] Name of Designated Family Airfreight Operations Agent: Anahy Charles Relationship to patient: Daughter Outcome: I spoke with the individual listed above Family Airfreight Operations Agent Updated on the Following: --provided medical update. [...] on Saturday. Signed, Bela Agustin APRN, CNP, [facility] Palliative Care/Hospice PGR [phone] Care Management Progress Note Short Medical why still here: did send bipap settings to [facility] and requested for them to obtain bipap unit for patient to utilize at their facility. Currently requiring oxygen at 1 liter. Anticipate probable dc tomorrow. Will need 7000 and transport arranged. Planned Discharge Disposition: Retirement Facility Barriers/Today we still Wait: Administering IV medications, Clinical stability, Facility pre-cert Length of Stay (Days): 8 GMLOS: 3.9 . Referral placed to SNF- [facility] via [facility] per TCC request. Await review and response regarding ability to accept. TCC notified. Care Management Progress Note Short Medical why still here: reviewed chart. Dgt has selected SNF choices virtually - 1. [facility] 2. [facility] 3. [facility]. Tasked ARMHOLE SEWER to create these referrals - will follow. Planned Discharge Disposition: Retirement Facility Barriers/Today we still Wait: Administering IV medications, Clinical stability, Facility pre-cert Length of Stay (Days): 7 GMLOS: 3.9 Called and spoke with deya Higginbotham of patient, and provided DC planning updates. [facility] willing to accept. Updates sent to facility. ICU Transfer Checklist Transfer Med Reconciliation (resume home meds if able, convert to PO if able) Complete Antibiotics (name, indication, duration, convert to PO if able) None Steroid (indication, duration, convert to PO if able) None Anticipated [place] Medications (ICU initiated) or Dose Changes and Indication No Permanently Discontinued Home Medications and Reason for medication contraindication No García Catheter (please remove if able. Note: place DC order) No Central Line (please remove if able. Note: place DC order) No Transfer Discussed with: Dr. Regan with [facility] If additional questions for ICU team within 24 hours of ICU transfer, page [phone] for clarifications. Will assume care as patient is being transferred out of ICU. D/w Dr Lewis via secure chat Images from the original note were not included. [facility] Palliative Care Transitions of Care Note [...] care of himself. -Consider medication for mood? -Welder Manufacture support requested. -Monitor. Hx CKD III -CrCl [...] NAME: TBD, referrals have been sent to [facility], [facility] and [facility]. Follow up with palliative team on [...] care and cardiology following. Planned Discharge Disposition: Retirement Facility Barriers/Today we still Wait: Clinical stability, Research Laboratory Technician recommendations (comment), Diagnostic workup, Administering IV medications, [...] if SNF is recommended by PT. manager social media to follow and assist as needed. Length of Stay (Days): 1 GMLOS: No GMLOS Documented documented in this encounter [facility] 04-17-2025 Note [facility] 04-17-2025 Hospital course Narrative Discharge Summary [...] Your Medications These medications were sent to [facility] [address] [facility] [address] Hours: Saturday to Saturday 10 am to 6 pm atorvastatin 20 MG tablet hydrALAZINE 10 MG tablet metoprolol succinate XL 25 MG 24 hr tablet senna-docusate sodium 8.6-50 MG tablet spironolactone 25 MG tablet Torsemide 40 MG tablet DIET: Adult diet Regular; No Added Salt (3-4 gm) ACTIVITY: No restriction. COMPLEXITY OF FOLLOW UP: [x] Moderate Complexity: follow up within 7-14 calendar days (46931) [] Severe Complexity: follow up within 7 calendar days (19374) FOLLOW UP TESTING, PENDING RESULTS OR REFERRALS AT TRANSITIONAL CARE VISIT: [x] Yes [] No PENDING STUDIES: DISPOSITION: Skilled Facility FACILITY/HOME CARE AGENCY NAME: Follow up with Nelson Garcia MD [address] [facility] [address] Go on 05/18/2025 Pulmonary hospital follow-up at 9:15 AM Marian Casarez APRN - PANEL BEATER [address] [place] [address] Follow up on 04/22/2025 Cardiology follow-up at 10:00 AM. [facility] Gastroenterology - [address] [address] Follow up in 1 month(s) [...] 04/17/2025, 10:12 AM documented in this encounter [facility] 04-17-2025 History of Presen t illness Narrative [facility] [place] [facility] Cardiology /Electrophysiology Progress Note HPI / Interval [...] follow-up 04/22/2025 at 10 AM at the [facility] office with myself, Marian Casarez CNP. [...] torsemide, 40 mg, Oral, Daily [2] [facility] Respiratory Care Department Progress Note Comment [...] care of himself. -Consider medication for mood? -Welder Manufacture support requested. -Monitor. Hx CKD III -CrCl [...] detailed in the note above. Bela Agustin, SIGNAL WORKER HELPER - PANEL BEATER Palliative Care Assessments: Goals of care: Continue [...] other systems were reviewed and are negative. Pierce Symptom Assessment Score Pierce Score Pain Score (if non-verbal, add .FLACC [...] On: Kcal/kg Weight Used for Energy Requirements: [place] Weight for Energy Calculation (kg): 70 kg Total Energy Requirements (kcals/day): 8042-0158 (25-30) Weight Used for Protein Requirements: [place] Weight in Kg Used for Protein Requirements: [...] Body Weight: (none on file to review) [place] Body Weight (lbs) (Calculated): 154 lbs [place] Body Weight (Kg) (Calculated): 70 kg % [place] Body Weight (Calculated): 129.9 % BMI (kg/m2) [...] Continue current diet Kristin Duffy RD Contact: *[phone] or via Secure Chat Images from the original note were not included. OCCUPATIONAL THERAPY [facility] Treatment Note Name/MRN: Mary Charles ([id number]) Date of : 1935 Age: 89 y.o. Room/Bed: [facility]268/[facility] B Visit #: 4 out of 7 Discharge Recommendation: Retirement Facility Equipment Needed: No Assessment Pt tolerated [...] Daily Activity Raw Score: 14 ADL Inpatient [facility] G-Code Modifier: CK Goals Patient Stated Goal: [...] ANAHY CHARLES Mobile Relation: Daughter Preferred language: [place] Employment Coordinator needed? No Albaro Hernández MD Division of Hospitalist Medicine Acute care [facility] [1] History reviewed. No pertinent [...] from the original note were not included. [facility], Pulmonary Medicine [address] [place] [address] Patient - Mary Charles, Age - 89 y.o. - 1935 Room Number - B2-268/B2-268 B Consulting - Albaro Hernández MD Primary Care Physician - No primary care provider on file[id number] Date of Admission - 04/05/2025 3:55 PM [...] heart failure, unspecified heart failure type (HCC) [facility] Cardiology /Electrophysiology Progress Note HPI / [...] torsemide, 40 mg, Oral, Daily [2] [facility] Respiratory Care Department Progress Note Comment [...] Respiratory in the care of this patient, [facility] [place] [facility] Cardiology /Electrophysiology Progress Note HPI / Interval [...] from the original note were not included. [facility], Pulmonary Medicine [address] [place] [address] Patient - Mary Charles, Age - 89 y.o. - 1935 Room Number - B2-268/B2-268 B Consulting - Albaro Hernández MD Primary Care Physician - No primary care provider on file. [id number] Date of Admission - 04/05/2025 3:55 PM [...] ANAHY CHARLES Mobile Relation: Daughter Preferred language: [place] Employment Coordinator needed? No Albaro Hernández MD Division of [...] 04/16/2025] polyethylene glycol (PEG) 3350 [4] [facility] Respiratory Care Department Progress Note Comment [...] Respiratory in the care of this patient, [facility] [place] [facility] Cardiology /Electrophysiology Progress Note HPI / Interval [...] original note were not included. OCCUPATIONAL THERAPY [facility] ED's Name/MRN: Mary Charles ([id number]) Date: 04/14/2025 Attempted to see pt for OT tx. Pt reported being very fatigued after getting cleaned up and working with PT this AM. Unable to encourage participation in OT tx at this time. Marleni Victor OT Images from the original note were not included. PHYSICAL THERAPY [facility] Treatment Note Name/MRN: Mary Charles ([id number]) Date of : 1935 Age: 89 y.o. [facility]: [facility] B Visit #: 4 out of 5 Discharge Recommendation: Retirement Facility Equipment Needed: No Assessment Patient supine [...] ANAHY CHARLES Mobile Relation: Daughter Preferred language: [place] Employment Coordinator needed? No Albaro Hernández MD Division of [...] from the original note were not included. [facility], Pulmonary Medicine [address] [place] [address] Patient - Mary Charles, Age - 89 y.o. - 1935 Room Number - B2-268/B2-268 B Consulting - Albaro Hernández MD Primary Care Physician - No primary care provider on file. [id number] Date of Admission - 04/05/2025 3:55 PM [...] at home. I spoke with Breana from [facility]. Likely will need to have bedside [...] On: Kcal/kg Weight Used for Energy Requirements: [place] Weight for Energy Calculation (kg): 70 kg Total Energy Requirements (kcals/day): 1776-6365 (25-30) Weight Used for Protein Requirements: [place] Weight in Kg Used for Protein Requirements: [...] Body Weight: (none on file to review) [place] Body Weight (lbs) (Calculated): 154 lbs [place] Body Weight (Kg) (Calculated): 70 kg % [place] Body Weight (Calculated): 136.1 % BMI (kg/m2) [...] Oral Nutrition Supplement Kristin Duffy RD Contact: *[phone] or via Secure Chat Images from the original note were not included. OCCUPATIONAL THERAPY [facility] Treatment Note Name/MRN: Mary Charles ([id number]) Date of : 1935 Age: 89 y.o. Room/Bed: B2-268/B2268 B Visit #: 3 out of 7 Discharge Recommendation: Retirement Facility Equipment Needed: No Prior Level of [...] Gongora OT at 04/14/2025 9:03 AM EDT [facility] Cardiology /Electrophysiology Progress Note HPI / [...] ANAHY CHARLES Mobile Relation: Daughter Preferred language: [place] Employment Coordinator needed? No Albaro Hernández MD Division of [...] from the original note were not included. [facility], Pulmonary Medicine [address] [place] [address] Patient - Mary Charles, Age - 89 [...] original note were not included. OCCUPATIONAL THERAPY [facility] Treatment Note Name/MRN: Mary Charles ([id number]) Date of : 1935 Age: 89 y.o. Room[facility]Bed: [facility] B Visit #: 2 out of 7 visits Discharge Recommendation: Retirement Facility Equipment Needed: No Prior Level of Function Prior Level of ADL Function: Required Assist (for showering and pt wipes himself down with wash cloth IND) Prior Level of Mobility: Independent; Device: Rollator Prior Level of Transfers: Independent Assessment Pt agreeable to therapy at first attempt (5161-2115) but states that he first needs to [...] care of himself. -Consider medication for mood? -Welder Manufacture support requested. -Monitor. Hx CKD III -CrCl [...] hospital setting and will send referral to nuclear process engineerfinancial coordinator for palliative SNF referral. -Questions answered, [...] other systems were reviewed and are negative. Pierce Symptom Assessment Score Pierce Score Pain Score (if non-verbal, add .FLACC [...] LOURDES Ordaz CNP Hospitalist Progress Note 04/12/2025 [phone]: Please secure chat me for patient care issues. [phone]: Please secure chat [facility] night Hospitalist for any issues. Subjective: Admit [...] diet Regular; No Added Salt (3-4 gm) @[id number]@ 24HR INTAKE/OUTPUT: Intake/Output Summary (Last 24 hours) [...] care input PT and OT assessments recommended snf facility -am labs, replace lytes prn -increase activity -DVT prophylaxis: [] Lovenox [] Heparin [x] SCDs [x] Encourage ambulation [] Already on Anticoagulation - GI prophylaxis : Anticipated Discharge - Date -April 14 or - Location -snf facility - Pending the following -clinical improvement, specialist clearance Total time spent (which include face to face and non face to face encounters) : 53 minutes Toxic drug monitoring/narrow therapeutic index drug monitoring : # Drug name : # Route administered : # Method of monitoring : Extended Emergency Contact Information Primary Emergency Contact: ANAHY CHARLES Mobile Relation: Daughter Preferred language: [place] Employment Coordinator needed? No Westley Martinez MD Division of Hospitalist Medicine [facility] [facility] PAGER: Ese chat [1] History reviewed. No [...] original note were not included. PHYSICAL THERAPY [facility] Treatment Note Name/MRN: Mary Charles ([id number]) Date of : 1935 Age: 89 y.o. Room[facility]Bed: [facility] B Visit #: 3 out of 5 visits Discharge Recommendation: Retirement Facility Equipment Needed: No Assessment Pt making [...] Cabral PT at 04/12/2025 10:47 AM EDT [facility] [place] [facility] Cardiology /Electrophysiology Progress Note HPI / Interval History: Mary Charles has no prior cardiac history (has not seen a physician for many years) who presented to [facility] with worsening SOB, hypoxia and [...] CNP Date Of Service 04/12/2025 [1] [facility] Respiratory Care Department Progress Note Comment [...] original note were not included. OCCUPATIONAL THERAPY [facility] Treatment Note Name/MRN: Mary Charles ([id number]) Date of : 1935 Age: 89 y.o. Room[facility]Bed: [facility] B Visit #: 1 out of 7 Discharge Recommendation: Retirement Facility Equipment Needed: No Prior Level of [...] 04/11/2025 1:38 PM EDT Hospitalist Progress Note 04/11/20256994496-7479: Please secure chat me for patient care issues. [phone]: Please secure chat [facility] night Hospitalist for any issues. Subjective: Admit [...] diet Regular; No Added Salt (3-4 gm) @[id number]@ 24HR INTAKE/OUTPUT: Intake/Output Summary (Last 24 hours) [...] - Location -Home with home health versus snf facility - Pending the following -PT and [...] ANAHY CHARLES Mobile Relation: Daughter Preferred language: [place] Employment Coordinator needed? No Westley Martinez MD Division of Hospitalist Medicine [facility] [facility] PAGER: Quill chat [1] History reviewed. No pertinent past [...] ON 04/12/2025] torsemide, 40 mg, Oral, Daily [facility] [place] [facility] Cardiology /Electrophysiology Progress Note HPI / Interval History: Mary Charles has no prior cardiac history (has not seen a physician for many years) who presented to [facility] with worsening SOB, hypoxia and [...] 100 % Final Alejandro Queen APRN - PANEL BEATER Date Of Service 04/11/2025 [1] [facility] Respiratory Care Department Progress Note Comment [...] original note were not included. PHYSICAL THERAPY [facility] Treatment Note Name/MRN: Mary Charles ([id number]) Date of : 1935 Age: 89 y.o. Room/Bed: 222-04/222-04 A Visit #: 2 out of 5 Discharge Recommendation: Retirement Facility Equipment Needed: No Assessment Pt making [...] original note were not included. OCCUPATIONAL THERAPY [facility] Initial Evaluation Name/MRN: Mary Charles ([id number]) Evaluation Date: 04/10/2025 Date of : 1935 Admission Date: 04/05/2025 3:55 PM Age: 89 y.o. Room/Bed: 222-04/222-04 A Discharge Recommendation: Retirement Facility Equipment Needed: No Assessment IMPRESSION: Pt [...] Needs Assist Receives Help From: Family Active Music Historian: No Prior Level of Function Prior Level [...] of Care supervision is transferred to a [facility] Therapy Services Occupational Therapist. Goals [...] [2] History reviewed. No pertinent surgical history. [facility] Cardiology /Electrophysiology Progress Note HPI / Interval History: Mary Charles has no prior cardiac history (has not seen a physician for many years) who presented to [facility] with worsening SOB, hypoxia and [...] remote tobacco abuse who was admitted to [facility] 04/05/25 with shortness of breath [...] Normal [] Scar/Lesion/Mass Inspection of teeth/lips/gums: Dentition: [x][place] Teeth []Dentures Lips/Gums [x]Intact []Lesion Present Oropharynx exam: Mucosa [x][place] []Moist []Dry Neck: External Appearance: Overall Appearance:[x]Normal [...] ABGs: Recent Labs 04/08/25165304/08/252052 PHART 7.296* 7.332* [id number] 80.1* 75.1* PO2ART 92.0 104.0 EUW0RIH 38.2* 38.9* [id number] 96.1* 97.0 Lactic Acid: No lab exists [...] can use the urinal, no indication for NAPPER GRINDER at this time (would be a poor [...] Code Status: Full Code Disposition: Transfer to [facility] with telemetry Critical care time spent reviewing labs/films, examining patient, collaborating with other physicians but excluding procedures for life threatening organ failure is 35 minutes. Precious Lewis MD Pulmonary & Critical Care Medicine [facility] Pager #[phone] [1] atorvastatin, 20 mg, Oral, Nightly carvedilol, 3.125 mg, Oral, BID WC furosemide, 40 mg, IntraVENous, BID hydrALAZINE, 25 mg, Oral, TID mupirocin, 1 Application, Nasal, BID pantoprazole, 40 mg, Oral, qAM AC polyethylene glycol (PEG) 3350, 17 g, Oral, Daily senna-docusate sodium, 2 tablet, Oral, BID [Held by provider] torsemide, 20 mg, Oral, Daily [2] [facility] Cardiology /Electrophysiology Progress Note HPI / Interval History: Mary Charles has no prior cardiac history (has not seen a physician for many years) who presented to [facility] with worsening SOB, hypoxia and [...] Does appear tired. Family at bedside (brother, [id number], daughter). No significant complaints today. Assessment/Plan HF [...] original note were not included. PHYSICAL THERAPY [facility] Treatment Note Name/MRN: Mary Charles ([id number]) Date of : 1935 Age: 89 y.o. Room/Bed: 222-04/222-04 A Visit #: 1 out of 5 Discharge Recommendation: Retirement Facility Equipment Needed: No Assessment Pt demos [...] Treatment Minutes: 16 Minutes (ther act x1) uLcrecia Cabral PT Spiritual Care Note [facility] Palliative Care Patient Name:Mary Charles Chief Complaint: [...] He spoke about moving from [place] to [place] as a young man. We did some life review. No follow up. Is there spiritual distress? YES Comment: Grief Interventions: spiritual support provided, emotional support provided, empathetic listening, and validated feelings. Care Plan: No care plan. Follow Up: No follow up. Debriefed: with ski guide team. Carmelita Chairez 04/09/25 Images from the [...] care of himself. -Consider medication for mood? -Welder Manufacture support requested. -Monitor. Hx CKD III -CrCl [...] other systems were reviewed and are negative. Pierce Symptom Assessment Score Pierce Score Pain Score (if non-verbal, add .FLACC [...] original note were not included. OCCUPATIONAL THERAPY [facility] & ED's Name/MRN: Mary Charles ([id number]) Date: 04/09/2025 OT order received, chart review [...] remote tobacco abuse who was admitted to [facility] 04/05/25 with shortness of breath [...] Normal [] Scar/Lesion/Mass Inspection of teeth/lips/gums: Dentition: [x][place] Teeth []Dentures Lips/Gums [x]Intact []Lesion Present Oropharynx exam: Mucosa [x][place] []Moist []Dry Neck: External Appearance: Overall Appearance:[x]Normal [...] ABGs: Recent Labs 04/08/25165304/08/252052 PHART 7.296* 7.332* XOR8VJS 80.1* 75.1* PO2ART 92.0 104.0 NCV6AUP 38.2* 38.9* J5NTPEOX 96.1* 97.0 Lactic Acid: No lab exists [...] urology evaluation, strict I/O's, no indication for NAPPER GRINDER at this time (would be a poor [...] Lewis MD Pulmonary & Critical Care Medicine [facility] Pager #[phone] [1] atorvastatin, 20 mg, Oral, Nightly carvedilol, [...] critical care time excluding procedures D/w Yamilka, NAPPER GRINDER, Rosangela RN and family at bedside. Images from the original note were not included. OCCUPATIONAL THERAPY [facility] ED's Name/MRN: Mary Charles ([id number]) Date: 04/08/2025 Therapy eval and treat orders [...] up with [facility] Hospitalist Progress Note 04/08/20256997912-6055: Please secure chat me for patient care issues. [phone]: Please secure chat [facility] Hospitalist for any issues. Subjective: Admit [...] dose of lorazepam.... Adult diet Clear liquid @[id number]@ 24HR INTAKE/OUTPUT: Intake/Output Summary (Last 24 hours) [...] Date -April 11 or - Location -possible snf facility - Pending the following -clinical improvement, [...] ANAHY CHARLES Mobile Relation: Daughter Preferred language: [place] Employment Coordinator needed? No Westley Martinez MD Division of Hospitalist Medicine [employer] PAGER: Epic chat [1] History reviewed. No pertinent past medical history. [2] [3] atorvastatin, 20 mg, Oral, Nightly carvedilol, 3.125 mg, Oral, BID WC [Held by provider] furosemide, 40 mg, IntraVENous, BID hydrALAZINE, 25 mg, Oral, TID iron sucrose, 200 mg, IntraVENous, q24h pantoprazole, 40 mg, Oral, qAM AC [facility] Cardiology /Electrophysiology Progress Note HPI / Interval History: Mary Charles has no prior cardiac history (has not seen a physician for many years) who presented to [facility] with worsening SOB, hypoxia and [...] 3. Dysphagia - resolved Spiritual Care Note [facility] Palliative Care Patient Name:Mary Charles Chief Complaint: Chief Complaint Patient presents with Leg Swelling Shortness of Breath Pt arrived to triage for shortness of breath and swelling legs. Pt endorses increased work of breath, weakness, confusion and no appetite. Reason for visit: Welder Manufacture Consult Services Provided To:patient and family Background and visit note: Patient was ski guide consult. Introduced myself and pastoral care to [...] and when patient is able. Debriefed: with ski guide team. Carmelita Chairez 04/07/25 Images from the original note were not included. PHYSICAL THERAPY [facility] Initial Evaluation Name/MRN: Mary Charles ([id number]) Evaluation Date: 04/07/2025 Date of : 1935 Admission Date: 04/05/2025 3:55 PM Age: 89 y.o. Room/Bed: B2254/[facility]254 A Discharge Recommendation: Retirement Facility Equipment Needed: No Assessment IMPRESSION: Pt [...] Needs Assist Receives Help From: Family Active Music Historian: No Prior Level of Function Prior Level [...] of Care supervision is transferred to a [facility] Therapy Services Physical Therapist. Goals and/or treatment plan was established in collaboration with patient/family/other representatives. [1] History reviewed. No pertinent past medical history. [2] History reviewed. No pertinent surgical history. Cosigned by Lucrecia Cabral PT at 04/07/2025 4:00 PM EDT Hospitalist Progress Note 04/07/20256995741-4631: Please secure chat me for patient care issues. [phone]: Please secure chat [facility] night Hospitalist for any issues. Subjective: Admit [...] diet Regular; No Added Salt (3-4 gm) @[id number]@ 24HR INTAKE/OUTPUT: Intake/Output Summary (Last 24 hours) [...] Date -April 11 or - Location -possible snf facility - Pending the following -clinical improvement, [...] ANAHY CHARLES Mobile Relation: Daughter Preferred language: [place] Employment Coordinator needed? No Westley Martinez MD Division of Hospitalist Medicine Acute care [facility] PAGER: Epic chat [1] History reviewed. No pertinent past medical history. [2] [3] atorvastatin, 20 mg, Oral, Nightly carvedilol, 3.125 mg, Oral, BID WC furosemide, 40 mg, IntraVENous, BID hydrALAZINE, 25 mg, Oral, TID iron sucrose, 200 mg, IntraVENous, q24h pantoprazole, 40 mg, Oral, qAM AC [facility] [place] [facility] Cardiology /Electrophysiology Progress Note HPI / Interval History: Mary Charles has no prior cardiac history (has not seen a physician for many years) who presented to [facility] with worsening SOB, hypoxia and [...] assess Fluid Accumulation: Moderate to Severe Extremities Wool Merchant Strength: Not Performed Nutrition Assessment: 89 y.o. [...] anemia and frailty. Conservative, medical management." nursing informatics analyst in room. Pt sleeping /snoring -name called numerous times pt did not wake -left undisturbed at this time. Estimated Daily Nutrient Needs: Energy Requirements Based On: Kcal/kg Weight Used for Energy Requirements: [place] Weight for Energy Calculation (kg): 70 kg Total Energy Requirements (kcals/day): 2300-2672 (25-30) Weight Used for Protein Requirements: [place] Weight in Kg Used for Protein Requirements: [...] lb) Usual Body Weight: (unable to obtain) [place] Body Weight (lbs) (Calculated): 154 lbs [place] Body Weight (Kg) (Calculated): 70 kg % [place] Body Weight (Calculated): 129.9 % BMI (kg/m2) [...] soon to determine Kristin Duffy RD Contact: *[phone] or via Secure Chat [1] atorvastatin, 20 mg, Oral, Nightly carvedilol, 3.125 mg, Oral, BID WC furosemide, 40 mg, IntraVENous, BID hydrALAZINE, 25 mg, Oral, TID iron sucrose, 200 mg, IntraVENous, q24h pantoprazole, 40 mg, Oral, qAM AC [2] Hospitalist Progress Note 04/06/2025 [phone]: Please secure chat me for patient care issues. [phone]: Please secure chat [facility] Hospitalist for any issues. Subjective: Admit [...] ferritin, IV Venofer added Adult diet Regular @[id number]@ 24HR INTAKE/OUTPUT: Intake/Output Summary (Last 24 hours) [...] ANAHY CHARLES Mobile Relation: Daughter Preferred language: [place] Employment Coordinator needed? No Westley Martinez MD Division of Hospitalist Medicine [employer] care [employer] PAGER: Quill chat [1] History reviewed. No pertinent past medical history. [2] [3] atorvastatin, 20 mg, Oral, Nightly carvedilol, 3.125 mg, Oral, BID WC furosemide, 40 mg, IntraVENous, BID hydrALAZINE, 25 mg, Oral, TID iron sucrose, 200 mg, IntraVENous, q24h pantoprazole, 40 mg, Oral, qAM AC documented in this encounter [facility] 04-14-2025 Note IR US Thoracentesis 650 ml of hines yellow fluid removed. Vaseline guaze dressing applied. Patient tolerated procedure well. Patient returned to [place] patient room. [facility] 04-14-2025 Consult note Associated Order (s): IP CONSULT TO PALLIATIVE CARE Consult acknowledged. Patient previously seen by palliative care. Signed off on 04-12. Patient has had worsening status in last couple days, worsening pleural effusion. Spoke with pulmonology TELEVISION ANNOUNCER, Yesi today. Consult placed. Will see tomorrow s/p thoracentesis. Signed, Bela Agustin APRN, CNP, [facility]/Hospice PGR [phone] Cosigned by Diana Marsh MD at 04/14/2025 1:38 PM EDT Images from the original note were not included. [facility], Pulmonary Medicine [address] [place] [address] [id number] 1935 Date of Admission - 04/05/2025 3:55 PM Date of evaluation - 04/12/2025 Room - [facility] B Hospital Day - Consulting - Westley [...] ml Output 650 ml Net -410 ml @[id number]@ Physical Exam Physical Exam Vitals and nursing [...] Pulmonary function tests (PFT's) No PFT's in [facility] Sleep History No sleep study available in [facility] Radiology CXR 04/11/25: IMPRESSION: Cardiomegaly [...] deltoids) Fluid Accumulation: Moderate to Severe Extremities Wool Merchant Strength: Normal licensing registration examiner strength Nutrition Assessment: 89 year old man who remains admitted to [facility] with shortness of breath and [...] On: Kcal/kg Weight Used for Energy Requirements: [place] Weight for Energy Calculation (kg): 70 kg Total Energy Requirements (kcals/day): 0353-3429 (25-30) Weight Used for Protein Requirements: [place] Weight in Kg Used for Protein Requirements: [...] Body Weight: (none on file to review) [place] Body Weight (lbs) (Calculated): 154 lbs [place] Body Weight (Kg) (Calculated): 70 kg % [place] Body Weight (Calculated): 136.1 % BMI (kg/m2) [...] to determine Darleen Stubbs RDN, LDN, Contact: *[phone] Associated Order(s): INPATIENT CONSULT TO CRITICAL CARE - MEDICAL TEAM Internal Medicine: MICU Initial Consult Name: Mary Charles : 1935(89 y.o.) Date: 04/08/25 Attending: Precious Lewis MD Subjective: Chief Complaint: shortness of breath HPI: Patient is a pleasant 89 year-old male with a history of chronic HFrEF and prior remote tobacco abuse who was admitted to [facility] 04/05/25 with shortness of breath [...] Normal [] Scar/Lesion/Mass Inspection of teeth/lips/gums Dentition: [x][place] Teeth []Dentures Lips/Gums: [x]Intact []Lesion Present Mucosa: [x][place] []Moist []Dry Neck: External Appearance Overall Appearance: [...] ABGs: Recent Labs 04/08/25 1654 PHART 7.296* MNI0QAE 80.1* PO2ART 92.0 XJX1XFD 38.2* Z4WXNTXP Nasal Cannula (LPM) Lactic Acid: No results [...] Place garcía, strict I/O's, no indication for NAPPER GRINDER at this time (would be a poor [...] care of himself. -Consider medication for mood? -Welder Manufacture support requested. -Monitor. Hx CKD III -CrCl [...] detailed in the note above. Bela Agustin, SIGNAL WORKER HELPER - PANEL BEATER Palliative Care Assessments: Goals of care: Continue [...] Living status: alone Work history: status: No Congregation: No taoist on file ROS: See palliative care ROS/ESAS below; All other systems were reviewed and are negative. Pierce Symptom Assessment Score Pierce Score Pain Score (if non-verbal, add .FLACC [...] 2024, has a son who lives in [place] and daughter that lives close by Retired from working at [employer] for 43 years No tobacco use Denies [...] Allergies Associated Order(s): IP CONSULT TO CARDIOLOGY [facility] [place] Cardiology Consult Note Reason for Consult/Chief Complaint: [...] daily Consider palliative approach Cari Scherer MD, [facility] DATE of SERVICE: 04/06/2025 [1] History reviewed. No pertinent past medical history. [2] History reviewed. No pertinent surgical history. [3] No family history on file. [4] [5] furosemide, 40 mg, IntraVENous, BID iron sucrose, 200 mg, IntraVENous, q24h pantoprazole, 40 mg, Oral, qAM AC documented in this encounter [facility] 04-13-2025 Hospital Discharg e instructions LOURDES Cervantes CNP - 04/13/2025 12:17 PM EDT Please call [email or web address] at [phone] to arrange for home NIV once stable [...] ANAHY CHARLES Mobile Relation: Daughter Preferred language: [place] Employment Coordinator needed? No Past Surgical History: History reviewed. [...] Minimal assistance Toileting Total assistance Feeding Independent Contract Administrator Minimal assistance Med Delivery yes Wound Care [...] Status Date: Discharging to Facility/ Agency Name: [facility] Address:[address] [place] [address] Phone:[phone] Dialysis Facility (if applicable) Name: Address: Dialysis Schedule: Phone: Fax: Crime Scene Investigator/Belt Sewer signature: ICIAN SECTION Name: Mary Charles Prognosis: [...] to a nursing facility directly from an [facility] or a unit of a [facility] that is not operated by or licensed by [facility] under section 5119.14 or 5160-3-15.1 5 The individual requires the level of services provided by a nursing facility for the condition for which he or she was treated in the hospital and, Physician Certification: I certify the above information and transfer of Mary Charles is necessary for the continuing treatment of the diagnosis listed and that he requires snf facility for less than 30 days. Update Admission H&P: No change in H&P PHYSICIAN SIGNATURE: documented in this encounter [facility] 04-09-2025 Note [facility] 04-09-2025 Procedure note Associated Ord er(s): [...] this procedure note documented in this encounter [facility] 04-09-2025 Note [facility] 04-05-2025 Note [facility] 04-05-2025 History and physical note [...] No Known Allergies documented in this encounter [facility] Health Evaluation note Diagnosis Acute congestive heart failure, unspecified heart failure type (HCC)- Primary Acute congestive heart failure, unspecified heart failure type (HCC) Anemia, unspecified type Shortness of breath Hypoxia Hypoxemia CHF (congestive heart failure), NYHA class I, acute on chronic, combined (HCC) documented in this encounter [facility] HealthEvaluation note* Diagnosis Acute congestive heart failure, unspecified heart failure type (HCC)- Primary documented in this encounter [facility] HealthEvaluation note* Diagnosis Chronic systolic heart failure (HCC)- Primary Chronic systolic heart failure 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 Pleural effusion Unspecified pleural effusion Acute kidney injury superimposed on chronic kidney disease (HCC) (HCC) 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 chronic kidney disease (HCC) PAC (premature atrial contraction) Supraventricular premature beats Abnormal CAT scan Other nonspecific (abnormal) findings on radiological and other examinations of body structure [facility] Diagnosis Chronic systolic heart failure (HCC)- Primary Chronic systolic heart failure 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 Pleural effusion Unspecified [...] Debility Unspecified debility documented in this encounter [facility] note* Diagnosis Chronic systolic heart failure (HCC)- Primary Chronic systolic heart failure 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 Pleural effusion Unspecified pleural effusion Acute kidney injury superimposed on chronic kidney disease 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 chronic kidney disease (CMS/HCC) PAC (premature atrial contraction) Supraventricular premature beats Abnormal CAT scan Other nonspecific (abnormal) findings on radiological and other examinations of body structure Chronic systolic heart failure (HCC)- Primary Chronic systolic heart failure [facility] Diagnosis Chronic systolic heart failure (HCC)- Primary Chronic systolic heart failure 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 Pleural effusion Unspecified pleural effusion Acute kidney injury superimposed on chronic kidney disease 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 chronic kidney disease (CMS/HCC) PAC (premature atrial contraction) Supraventricular premature beats Abnormal CAT scan Other nonspecific (abnormal) findings on radiological and other examinations of body structure Anemia due to chronic kidney disease, unspecified CKD stage- Primary [facility] Diagnosis Chronic systolic heart failure (HCC)- Primary Chronic systolic heart failure 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 Pleural effusion Unspecified pleural effusion Acute kidney injury superimposed on chronic kidney disease 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 chronic kidney disease (CMS/HCC) PAC (premature atrial contraction) Supraventricular premature beats Abnormal CAT scan Other nonspecific (abnormal) findings on radiological and other examinations of body structure Symptomatic anemia- Primary documented in this encounter [facility] Chief Complaint and Reason for Visit [...] type (HCC) Procedures .. Clara, Albaro, MD [address] [place] [address] Phone: tel: fax: [facility] Cardiac Progressive Care Unit PCU [address] [place] [address] Phone: tel: Referral ID Status Reason Start Date Expiration Date Visits Re quested Visits Authorized [id number] 1 1 Reason Comments Hospital Follow-up Congestive [...] Fu, LUCIA)[id number] (Not Given - Provider: Danielle uF RN - Reason: Order parameters not met)2105 [...] sedation for opioid reversal - MUST notify sql application developer provider immediately after first dose, may give [...] Care Teams (unrecognized sec tion and content) Paste Maker Relationship Specialty Start Date End Date Aliya Tadeo RN Tanbark Peeler Manager 04/09/25 Paste Maker Relationship Specialty Start Date End Date Aliya Tadeo RN Tanbark Peeler Manager 04/09/25 Paste Maker Relationship Specialty Start Date End Date Aliya Tadeo RN Registered Nurse [employer]bark Peeler Manager 04/09/25 Paste Maker Relationship Specialty Start Date End Date Aliya Tadeo RN Registered Nurse [employer]bark Peeler Manager 04/09/25 Paste Maker Relationship Specialty Start Date End Date Aliya Tadeo RN Registered Nurse [employer]bark Peeler Manager 04/09/25 Paste Maker Relationship Specialty Start Date End Date Aliya Tadeo RN Registered Nurse [employer]bark Peeler Manager 04/09/25 Paste Maker Relationship Specialty Start Date End Date Aliay Tadeo RN Registered Nurse [employer]bark Peeler Manager 04/09/25 Paste Maker Relationship Specialty Start Date End Date Ravi Kirk DO [address] [place] [id number] PCP - General Internal Medicine 07/19/25 (unrecognized sect ion and content) No Status Records FoundNo Status Records Found INFORMATION SOURCE (unrecogn ized section and content) DATE CREATED AUTHOR 07/19/2025 [facility] DATE CREATED AUTHOR BRENDENS KIYA TROTTER 07/20/2025 [facility] FOR RECORDS PERTAINING TO PATIENTS [...] BE BASED ON THE PRIMARY CLINICAL RECORDS. [facility]. provides no warranty or guarantee of the accuracy or completeness of information in this document.
[2025-08-07 10:55] LABS: Hematocrit 22.4 % (40-54); Hemoglobin 7.1 g/dL (13.0-16.5); Mean Corp Hgb Conc 31.7 g/dL (32-36); Mean Corpuscular Volume 91.8 fL (80-94); Mean Platelet Vol. 8.4 fl (6.2-12.0); Platelet Count 579 K/mm3 (150-450); RBC Distribution Width CV 13.4 % (11.6-14.6); RBC Distribution Width SD 45.3 fl (35.1-43.9); Red Blood Count 2.44 M/mm3 (4.6-6.2); White Blood Count 15.1 K/mm3 (4.4-11.0)
== END ==
LOC: OLS.ACH2 10:30
PROVIDERS: PCP Internal Medicine; Visit Provider Internal Medicine
DX: N18.9 Chronic kidney disease, unspecified (principal); D63.1 Anemia in chronic kidney disease
CPT/HCPCS: 85027

== ENCOUNTER → 2025-08-11 05:00 | Outpatient (REF) | payer MEDICARE, SELFPAY ==
[2025-08-11 07:57] LABS: Hematocrit 22.4 % (40-54); Hemoglobin 7.1 g/dL (13.0-16.5)
== END ==
LOC: OLS.ACH2 05:00
PROVIDERS: PCP Internal Medicine; Visit Provider Internal Medicine
DX: N18.9 Chronic kidney disease, unspecified (principal); D63.1 Anemia in chronic kidney disease
CPT/HCPCS: 36415; 85014; 85018

== ENCOUNTER → 2025-08-18 | Outpatient (REF) | payer MEDICARE, SELFPAY ==
--- OUTSIDE RECORDS SUMMARY | 2025-08-18 04:44 | XMS RPT_ITS | CCD ---
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 Role Phone Aliya Tadeo RN Unavailable Unavailable Deperro OLS, Ravi Attending Unavailable Ghourbrial, [facility] Primary [facility] Unavailable Ghourbrial, [facility] Unavailable Deperro OLS, Ravi Attending Unavailable Deperro OLS, Ravi Attending Unavailable Ghourbrial, [facility] Primary [facility] Unavailable Deperro OLS, Ravi Attending Unavailable Ghourbrial, [facility] Primary Care Unavailable Deperro OLS, Ravi Attending Unavailable Ghourbrial, [facility] Primary Care Unavailable Deperro OLS, [...] Unavailable Deperro DO, Ravi Primary Care Provider [phone] Unavailable Unavailable Unavailable Medications Current Medications Medication [...] docusate sodium 50 mg / sennosides, senior care 8.6 mg oral tablet (15 sources) Start: [...] Start: 04-05-2025 End: 04-06-2025 polyethylene glycol 3350 32896 mg powder for oral solution (4 sources) [...] Coronary arteriosclerosis; Translations: [Atherosclerotic heart disease of [place] coronary artery without angina pectoris] Onset: 05-03-2025 [...] SCREEN Mando 07-19-2025 ABO GROUPING A Normal [facility] Comment on above: Performed By: #### L [id number] ####Finishing Supervisor Plastic Sheets: UNA ARCE ([id number])[facility] ([facility])[address] RH TYPE IN BLOOD Negative Normal [facility] Comment on above: Performed By: #### L [id number] ####Finishing Supervisor Plastic Sheets: UNA ARCE ([phone])[facility] ([facility])[address] [place], [place] [id number] [place] [address] Basic Metabolic Profile (BMP )on 07-19-2025 BUN/CRE 17.2 RATIO Normal 10-20 [facility] Comment on above: Order Comment: 542.1 Performed By: #### L 500.2500, L100.0500 #### [facility] Laboratory [address] [place], [address] Calcium [Mass/Vol] 8.6 mg/dL Normal 7.6-11.0 [facility] Comment on above: Order Comment: 542.1 Performed By: #### L 500.2500, L100.0500 #### [facility] [address] [place], [address] Chloride [Moles/Vol] 99 mmol/L Normal 98-108 [facility] Comment on above: Order Comment: 542.1 Performed By: #### L 500.2500, L100.0500 #### [facility] [address] [place], [address] CO2 [Moles/Vol] 28.6 mmol/L Normal 21.0-32.0 [facility] Comment on above: Order Comment: 542.1 Performed By: #### L 500.2500, L100.0500 #### [facility] [address] [place], [address] Creatinine [Mass/Vol] 1.77 mg/dL High 0.70-1.20 [facility] Comment on above: Order Comment: 542.1 Performed By: #### L 500.2500, L100.0500 #### [facility] [address] [place], [address] GAP 9 Normal 5-15 [facility] Comment on above: Order Comment: 542.1 Performed By: #### L 500.2500, L100.0500 #### [facility] [address] [place], [address] GFR/1.73 sq M.predicted among non-blacks MDRD (S/P/Bld) [Vol rate/Area] 36 mL/min/{1.73_m2} Low >60 [facility] Comment on above: Order Comment: 542.1 Result Comment: mL/m in/1.73m2 CKD-EPI Creatinine Equation (2020) Performed By: #### L 500.2500, L100.0500 #### [facility] [address] [place], [address] Glucose [Mass/Vol] 93 mg/dL Normal 70-99 [facility] Comment on above: Order Comment: 542.1 Performed By: #### L 500.2500, L100.0500 #### [facility] [address] [place], [address] Potassium [Moles/Vol] 3.7 mmol/L Normal 3.3-5.1 [facility] Comment on above: Order Comment: 542.1 Performed By: #### L 500.2500, L100.0500 #### [facility] [address] [place], [address] Sodium [Moles/Vol] 137 mmol/L Normal 133-145 [facility] Comment on above: Order Comment: 542.1 Performed By: #### L 500.2500, L100.0500 #### [facility] [address] [place], [address] Urea nitrogen [Mass/Vol] 30 mg/dL High 4-19 [facility] Comment on above: Order Comment: 542.1 Performed By: #### L 500.2500, L100.0500 #### [facility] [address] [place], [address] Blood type and Crossmatch keagan victor (Bld)on 07-19-2025 ABO group Froilan (Bld) A [facility] Blood group antibody screen GEL Ql Negative [facility] D Ag Ql (RBC) Negative [facility] CBC W Auto Differential pane l (Bld)Ordered By: Haroldo Alvarez on 07-19-2025 Erythrocyte distribution width (RBC) [Ratio] 14.0 % 11.5 - 15.0 % [facility] Hematocrit (Bld) [Volume fraction] 24.6 % Low 40.0 - 52.0 % [facility] Hemoglobin (Bld) [Mass/Vol] 7.8 g/dL Low 13.0 - 18.0 g/dL [facility] Interpretation and review of laboratory results Abnormal [facility] MCH (RBC) [Entitic mass] 29.2 pg 26. 0 - 34.0 pg [facility] MCHC (RBC) [Mass/Vol] 31.7 % 30.5 - 36.0 % [facility] MCV (RBC) [Entitic vol] 92.1 fL 77.0 - 99.0 fL [facility] Platelet mean volume (Bld) [Entitic vol] 8.3 fL Low 9.0 - 12.7 fL [facility] Platelets (Bld) [#/Vol] 581 10*3/uL High 140 - 440 10*3/uL [facility] RBC (Bld) [#/Vol] 2.67 10*6/uL Low 4.40 - 5.9 0 10*6/uL [facility] WBC (Bld) [#/Vol] 15.6 10*3/uL High 3.6 - 10.7 10*3/uL [facility] CBC WITH AUTO DIFFERENTIALon 07-19-2025 Erythrocyte distribution width (RBC) [Ratio] 14.0 % Normal 11.5-15.0 [facility] Comment on above: Performed By: #### L [id number], [id number] ####Finishing Supervisor Plastic Sheets: UNA ARCE ([id number])[facility] ([address] Hematocrit (Bld) [Volume fraction] 24.6 % Low 40.0-52.0 [facility] Comment on above: Performed By: #### L [id number], [id number] ####Finishing Supervisor Plastic Sheets: UNA ARCE ([id number])[facility] ([facility])[address] Hemoglobin (Bld) [Mass/Vol] 7.8 g/dL Low 13.0-18.0 [facility] Comment on above: Performed By: #### L [id number], [id number] ####Finishing Supervisor Plastic Sheets: UNA YAZMIN ([id number])[facility] ([facility])[address] MCH (RBC) [Entitic mass] 29.2 pg Normal 26.0-34.0 [facility] Comment on above: Performed By: #### L [id number], [id number] ####Finishing Supervisor Plastic Sheets: UNA BERMUDEZPEDRO ([id number])[facility] ([facility])[address] MCHC 31.7 % Normal 30.5-36.0 [facility] Comment on above: Performed By: #### L [id number], [id number] ####Finishing Supervisor Plastic Sheets: UNA ARCE ([id number])[facility] ([facility])[address] MCV (RBC) [Entitic vol] 92.1 fL Normal 77.0-99.0 [facility] Comment on above: Performed By: #### L [id number], [id number] ####Finishing Supervisor Plastic Sheets: UNA ARCE ([id number])[facility] ([facility])[address] Platelet mean volume (Bld) [Entitic vol] 8.3 fL Low 9.0-12.[address] [facility] Comment on above: Performed By: #### L [id number], [id number] ####Finishing Supervisor Plastic Sheets: UNA ARCE ([id number])[facility] ([facility])[address] Platelets (Bld) [#/Vol] 581 10*3/uL High 140-[address] [facility] Comment on above: Performed By: #### L [id number], [id number] ####Finishing Supervisor Plastic Sheets: UNAANJEL ARCE ([phone])[facility] ([facility])[address] [place] [address] RBC (Bld) [#/Vol] 2.67 10*6/uL Low 4.40-5.90 [facility] Comment on above: Performed By: #### L [id number], [id number] ####Finishing Supervisor Plastic Sheets: UNAANJEL ARCE ([id number])[facility] [place] ([facility])[address] [place] [address] WBC (Bld) [#/Vol] 15.6 10*3/uL High 3.6-10.7 [facility] Comment on above: Performed By: #### L [id number], [id number] ####Finishing Supervisor Plastic Sheets: UNAANJEL ARCE ([id number])[facility] ([facility])[address] [place] [address] CBC-Complete Blood Cnt No [facility] 07-19-2025 Erythrocyte distribution width (RBC) [Ratio] 14.1 % Normal 11.6-14.6 [facility] Comment on above: Order Comment: 542.1 Performed By: #### L 500.2500, L100.0500 #### [facility] [address] [place], [address] Hematocrit (Bld) [Volume fraction] 21.2 % Low 40-54 [facility] Comment on above: Order Comment: 542.1 Performed By: #### L 500.2500, L100.0500 #### [facility] [address] [place], [address] Hemoglobin (Bld) [Mass/Vol] 6.6 g/dL Low 13.0-16.5 [facility] Comment on above: Order Comment: 542.1 Performed By: #### L 500.2500, L100.0500 #### [facility] [address] [place], [address] MCH (RBC) [Entitic mass] 28.9 pg Normal 27.0-32.0 [facility] Comment on above: Order Comment: 542.1 Performed By: #### L 500.2500, L100.0500 #### [facility] [address] [place], [address] MCHC (RBC) [Mass/Vol] 31.1 g/dL Low 32-36 [facility] Comment on above: Order Comment: 542.1 Performed By: #### L 500.2500, L100.0500 #### [facility] [address] [place], [address] MCV (RBC) [Entitic vol] 93.0 fL Normal 80-94 [facility] Comment on above: Order Comment: 542.1 Performed By: #### L 500.2500, L100.0500 #### [facility] [address] [place], [address] Platelet mean volume (Bld) [Entitic vol] 8.5 fL Normal 6.2-12.0 [facility] Comment on above: Order Comment: 542.1 Performed By: #### L 500.2500, L100.0500 #### [facility] [address] [place], [address] Platelets (Bld) [#/Vol] 516 10*3/uL High 150-450 [facility] Comment on above: Order Comment: 542.1 Performed By: #### L 500.2500, L100.0500 #### [facility] [address] [place], [address] RBC (Bld) [#/Vol] 2.28 10*6/uL Low 4.6-6.2 [facility] Comment on above: Order Comment: 542.1 Performed By: #### L 500.2500, L100.0500 #### [facility] [address] [place], [address] RDW SD 47.1 fl High 35.1-43.9 [facility] Comment on above: Order Comment: 542.1 Performed By: #### L 500.2500, L100.0500 #### [facility] [address] [place], [address] WBC (Bld) [#/Vol] 12.9 10*3/uL High 4.4-11.0 [facility] Comment on above: Order Comment: 542.1 Performed By: #### L 500.2500, L100.0500 #### [facility] [address] [place], [address] ED Nursing Noteon 07-19-2025 ED Nursing Note [facility] arrived to transport pt to home facility . Pt transferred to stretcher without difficulty. Pt A&O, calm, and cooperative, no signs of distress noted. VS stable. Resp even, non labored. Normal [facility] ED Nursing Note Report given to [facility]. Marleni Normal [facility] ED Nursing Note Post H&H not needed per Dr. Rose. Ok to dc 30 mins after unit is complete. Normal [facility] ED Nursing Note Meal order placed Normal [facility] ED Nursing Note This RN sat bedside for the first 15 mins of blood transfusion. Pt denied c/o any transfusion reaction symptoms. Pt's vitals rechecked before leaving the room. Normal [facility] ED Provider Noteon ED Provider Note Normal [facility] MANUAL DIFFERENTIALon 2024 BASOPHILS (10*3/UL) IN BLOOD BY MANUAL COUNT 0.3 10*3/uL High 0.0-0.2 [facility] Comment on above: Performed By: #### L [id number], [id number] ####Finishing Supervisor Plastic Sheets: UNA ARCE ([id number])[facility] ([facility])[address] [place] [address] BASOPHILS/100 LEUKOCYTES IN BLOOD BY MANUAL COUNT 2 % Normal 0-2 [facility] Comment on above: Performed By: #### L [id number], [id number] ####Finishing Supervisor Plastic Sheets: UNA ARCE ([id number])[facility] [place] ([facility])[address] CELLS COUNTED TOTAL (#) IN BLOOD [address] [facility] Comment on above: Performed By: #### L [id number], [id number] ####Finishing Supervisor Plastic Sheets: UNA ARCE ([id number])[facility] [place] ([facility])[address] DIFFERENTIAL METHOD Manual differential performed Normal [facility] Comment on above: Performed By: #### L [id number], [id number] ####Finishing Supervisor Plastic Sheets: UNA ARCE ([id number])[facility] ([facility])[address] EOSINOPHILS (10*3/UL) IN BLOOD BY MANUAL COUNT 0.3 10*3/uL Normal 0.0-0.5 [facility] Comment on above: Performed By: #### L [id number], [id number] ####Finishing Supervisor Plastic Sheets: UNA ARCE ([id number])[facility] [place] ([facility])[address] [place] [address] [place] EOSINOPHILS/100 LEUKOCYTES IN BLOOD BY MANUAL COUNT 2 % Normal 0-[address] [facility] Comment on above: Performed By: #### L [id number], [id number] ####Finishing Supervisor Plastic Sheets: UNA ARCE ([id number])[facility] [place] ([facility])[address] [place] [address] [place] HYPOCHROMIA (PRESENCE) IN BLOOD BY LIGHT MICROSCOPY Slight Abnormal (none) [facility] Comment on above: Performed By: #### L [id number], [id number] ####Finishing Supervisor Plastic Sheets: UNA ARCE ([id number])[facility] [place] ([facility])[address] LEUKOCYTE MORPHOLOGY FINDING IN BLOOD Normal Normal [facility] Comment on above: Performed By: #### L [id number], [id number] ####Finishing Supervisor Plastic Sheets: UNAANJEL ARCE ([phone])[facility] ([facility])[address] [place] [address] [place] LYMPHOCYTES (10*3/UL) IN BLOOD BY MANUAL COUNT 3.3 10*3/uL Normal 1.0-4.3 [facility] Comment on above: Performed By: #### L [id number], [id number] ####Finishing Supervisor Plastic Sheets: UNAANJEL ARCE ([phone])[facility] [place] ([facility])[address] [place] [address] [place] LYMPHOCYTES/100 LEUKOCYTES IN BLOOD BY MANUAL COUNT 21 % Normal 15-[address] [facility] Comment on above: Performed By: #### L [id number], [id number] ####Finishing Supervisor Plastic Sheets: UNAANJEL ARCE ([id number])[facility] [place] ([facility])[address] [place] [address] [place] MONOCYTES (10*3/UL) IN BLOOD BY MANUAL COUNT 1.4 10*3/uL High 0.0-0.9 [facility] Comment on above: Performed By: #### L [id number], [id number] ####Finishing Supervisor Plastic Sheets: UNA BERMUDEZPEDRO ([id number])[facility] [place] ([facility])[address] [place] [address] [place] MONOCYTES/100 LEUKOCYTES IN BLOOD BY MANUAL COUNT 9 % Normal 5-13 [facility] Comment on above: Performed By: #### L [id number], [id number] ####Finishing Supervisor Plastic Sheets: UNA BERMUDEZPEDRO ([phone])[facility] [place] ([facility])[address] [place] [address] [place] OVALOCYTES PRESENCE IN BLOOD BY LIGHT MICROSCOPY Slight Abnormal (none) [facility] Comment on above: Performed By: #### L [id number], [id number] ####Finishing Supervisor Plastic Sheets: UNA STAUFFERMELANIE ([id number])[facility] [place] ([facility])[address] [place] [address] [place] PLATELET MORPHOLOGY IN BLOOD Normal Normal [facility] Comment on above: Performed By: #### L [id number], [id number] ####Finishing Supervisor Plastic Sheets: UNAANJEL ARCE ([id number])[facility] ([facility])[address] POLYCHROMASIA IN BLOOD BY LIGHT MICROSCOPY Slight Abnormal (none) [facility] Comment on above: Performed By: #### L [id number], [id number] ####Finishing Supervisor Plastic Sheets: UNA BERMUDEZPEDRO ([id number])[facility] ([facility])[address] SEGEMENTED NEUTROPHILS/100 LEUKOCYTES BY MANUAL COUNT 66 % Normal 38-82 [facility] Comment on above: Performed By: #### L [id number], [id number] ####Finishing Supervisor Plastic Sheets: UNA YAZMIN ([id number])[facility] ([facility])[address] [place] [address] SEGMENTED NEUTROPHILS (10*3/UL)IN BLOOD BY MANUAL COUNT 10.3 10*3/uL High 1.8-7.5 [facility] Comment on above: Performed By: #### L [id number], [id number] ####Finishing Supervisor Plastic Sheets: UNA YAZMIN ([phone])[facility] ([facility])[address] [place] [address] Manual differential performe d Ql (Bld)Ordered By: Myriam Choi on 07-19-2025 Basophils (Bld) [#/Vol] 0.3 10*3/uL High 0.0 - 0.2 10*3/uL [facility] Basophils/100 WBC (Bld) 2 % 0 - 2 % [facility] Cells Counted Total (Bld) [#] 100 {cells} [facility] Differential Method Manual differential performed [facility] Eosinophils (Bld) [#/Vol] 0.3 10*3/uL 0.0 - 0.5 10*3/uL [facility] Eosinophils/100 WBC (Bld) 2 % 0 - 6 % [facility] Hypochromia Ql (Bld) Slight Abnormal (none) [facility] Interpretation and review of laboratory results Abnormal [facility] Leukocyte morphology finding Nom (Bld) Normal [facility] Lymphocytes (Bld) [#/Vol] 3.3 10*3/uL 1.0 - 4.3 10*3/uL [facility] Lymphocytes/100 WBC (Bld) 21 % 15 - 45 % [facility] Monocytes (Bld) [#/Vol] 1.4 10*3/uL High 0.0 - 0.9 10*3/uL [facility] Monocytes/100 WBC (Bld) 9 % 5 - 13 % [facility] Neutrophils (Bld) [#/Vol] 10.3 10*3/uL High 1.8 - 7.5 10*3/uL [facility] Ovalocytes LM Ql (Bld) Slight Abnormal (none) [facility] Platelet morphology finding Nom (Bld) Normal [facility] Polychromasia LM Ql (Bld) Slight Abnormal (none) [facility] Segmented neutrophils/100 WBC (Bld) 66 % 38 - 82 % [facility] No Panel Informationon 07-19 Blood Expiration Date [id number] [facility] Crossmatch interpretation COMP [facility] Dis[facility]ense Status [facility] Type 600 [facility] PRODUCT CODE [id number] [facility] ABO A [facility] Number [id number] [facility] Negative [facility] Volume 300 mL [facility] Progress Noteon 07-19-2025 Progress Note Normal [facility] Progress Noteon 07-15-2025 Progress Note Normal [facility] 36on 07-14-2025 36 Faxed signed order t o [facility] fax#[phone], and scanned to Media. Normal [facility] [address] Hess. Normal [facility] 36 [facility] faxed order to discontinue Hydralazine, and Spironolactone. Placed on nurses desk to have Dr. Hess sign it. Normal [facility] 36on 07-07-2025 36 Darby called back t o verify the diuretic instructions; she had the Lasix written down, so I verified that it was actually torsemide. She verbalized understanding and was thankful for the call. Normal [facility] 36 Normal [facility] Folates,Serum (Folic Acid)on 07-07-2025 FOLATES,SERUM 8.25 ng/mL Normal 4.60-34.80 [facility] Comment on above: Order Comment: 542-1 N Performed By: #### L 506.0200, L100.0600, L503.0106, L503.6030 #### [facility] [address] [place], [address] HH, Hemoglobin AND Hematocri ton 07-07-2025 Hematocrit (Bld) [Volume fraction] 23.3 % Low 40-54 [facility] Comment on above: Order Comment: 542-1 Performed By: #### L 506.0200, L100.0600, L503.0106, L503.6030 #### [facility] [address] [place], [address] Hemoglobin (Bld) [Mass/Vol] 7.3 g/dL Low 13.0-16.5 [facility] Comment on above: Order Comment: 54-1 Performed By: #### L 506.0200, L100.0600, L503.0106, L503.6030 #### [facility] [address] [place], [address] Iron+Iron Binding Capacityon 07-07-2025 Iron [Mass/Vol] 27 ug/dL Low 65-175 [facility] Comment on above: Order Comment: 542-1 Performed By: #### L 506.0200, L100.0600, L503.0106, L503.6030 #### [facility] [address] [place], [address] IRON SATURATION 9.6 Normal 9-55 [facility] Comment on above: Order Comment: 542-1 Performed By: #### L 506.0200, L100.0600, L503.0106, L503.6030 #### [facility] [address] [place], [address] TIBC 278 ug/dL Normal 250-450 [facility] Comment on above: Order Comment: 542-1 Performed By: #### L 506.0200, L100.0600, L503.0106, L503.6030 #### [facility] [address] [place], [address] UIBC 251 ug/dL Normal 228-428 [facility] Comment on above: Order Comment: 542-1 Performed By: #### L 506.0200, L100.0600, L503.0106, L503.6030 #### [facility] [address] [place], [address] Vitamin B12on 07-07-2025 Cobalamin (Vitamin B12) [Mass/Vol] 334 pg/mL Normal 180-914 [facility] Comment on above: Order Comment: 542-1 Performed By: #### L 506.0200, L100.0600, L503.0106, L503.6030 #### [facility] [address] [place], [address] 36on 07-06-2025 36 Cr 1.9, K+ 3.7, hemoglobin 7.1 on 07/05/25. BP's mostly 100-110's/50/60's; one SBP outlier of 94, one outlier of 121. HR's 60-70's. Note from nursing: Normal [facility] 36 [facility] faxed 07/05/25 BMP, and CBC, and vitals. Records to be scanned to chart. Normal [facility] 36 Normal [facility] Basic Metabolic Profile (BMP )on 07-05-2025 BUN/CRE 20.8 RATIO High 06-28 [facility] Comment on above: Order Comment: 542-1 N Performed By: #### L 506.0200, L100.0600, L503.0106, L503.6030 #### [facility] [address] [place], [address] Calcium [Mass/Vol] 8.5 mg/dL Normal 7.6-11.0 [facility] Comment on above: Order Comment: 542-1 N Performed By: #### L 506.0200, L100.0600, L503.0106, L503.6030 #### [facility] [address] [place], [address] Chloride [Moles/Vol] 101 mmol/L Normal 98-108 [facility] Comment on above: Order Comment: 542-1 N Performed By: #### L 506.0200, L100.0600, L503.0106, L503.6030 #### [facility] [address] [place], [address] CO2 [Moles/Vol] 28.6 mmol/L Normal 21.0-32.0 [facility] Comment on above: Order Comment: 542-1 N Performed By: #### L 506.0200, L100.0600, L503.0106, L503.6030 #### [facility] [address] [place], [address] Creatinine [Mass/Vol] 1.90 mg/dL High 0.70-1.20 [facility] Comment on above: Order Comment: 542-1 N Performed By: #### L 506.0200, L100.0600, L503.0106, L503.6030 #### [facility] [address] [place], [address] GAP 10 Normal 5-15 [facility] Comment on above: Order Comment: 542-1 N Performed By: #### L 506.0200, L100.0600, L503.0106, L503.6030 #### [facility] [address] [place], [address] GFR/1.73 sq M.predicted among non-blacks MDRD (S/P/Bld) [Vol rate/Area] 33 mL/min/{1.73_m2} Low >60 [facility] Comment on above: Order Comment: 542-1 N Result Comment: mL/m in/1.73m2 CKD-EPI Creatinine Equation (2020) Performed By: #### L 506.0200, L100.0600, L503.0106, L503.6030 #### [facility] [address] [place], [address] Glucose [Mass/Vol] 92 mg/dL Normal 70-99 [facility] Comment on above: Order Comment: 542-1 N Performed By: #### L 506.0200, L100.0600, L503.0106, L503.6030 #### [facility] [address] [place], [address] Potassium [Moles/Vol] 3.7 mmol/L Normal 3.3-5.1 [facility] Comment on above: Order Comment: 542-1 N Performed By: #### L 506.0200, L100.0600, L503.0106, L503.6030 #### [facility] [address] [place], [address] Sodium [Moles/Vol] 140 mmol/L Normal 133-145 [facility] Comment on above: Order Comment: 542-1 N Performed By: #### L 506.0200, L100.0600, L503.0106, L503.6030 #### [facility] [address] [place], [address] Urea nitrogen [Mass/Vol] 40 mg/dL High 4-19 [facility] Comment on above: Order Comment: 542-1 N Performed By: #### L 506.0200, L100.0600, L503.0106, L503.6030 #### [facility] [address] [place], [address] CBC-Complete Blood Cnt No Di ffon 07-05-2025 Erythrocyte distribution width (RBC) [Ratio] 14.8 % High 11.6-14.6 [facility] Comment on above: Order Comment: 542-1 N Performed By: #### L 506.0200, L100.0600, L503.0106, L503.6030 #### [facility] [address] [place], [address] Hematocrit (Bld) [Volume fraction] 23.2 % Low 40-54 [facility] Comment on above: Order Comment: 542-1 N Performed By: #### L 506.0200, L100.0600, L503.0106, L503.6030 #### [facility] [address] [place], [address] Hemoglobin (Bld) [Mass/Vol] 7.1 g/dL Low 13.0-16.5 [facility] Comment on above: Order Comment: 542-1 N Performed By: #### L 506.0200, L100.0600, L503.0106, L503.6030 #### [facility] [address] [place], [address] MCH (RBC) [Entitic mass] 28.9 pg Normal 27.0-32.0 [facility] Comment on above: Order Comment: 542-1 N Performed By: #### L 506.0200, L100.0600, L503.0106, L503.6030 #### [facility] [address] [place], [address] MCHC (RBC) [Mass/Vol] 30.6 g/dL Low 32-36 [facility] Comment on above: Order Comment: 542-1 N Performed By: #### L 506.0200, L100.0600, L503.0106, L503.6030 #### [facility] [address] [place], [address] MCV (RBC) [Entitic vol] 94.3 fL High 80-94 [facility] Comment on above: Order Comment: 542-1 N Performed By: #### L 506.0200, L100.0600, L503.0106, L503.6030 #### [facility] [address] [place], [address] Platelet mean volume (Bld) [Entitic vol] 8.8 fL Normal 6.2-12.0 [facility] Comment on above: Order Comment: 542-1 N Performed By: #### L 506.0200, L100.0600, L503.0106, L503.6030 #### [facility] [address] [place], [address] Platelets (Bld) [#/Vol] 507 10*3/uL High 150-450 [facility] Comment on above: Order Comment: 542-1 N Performed By: #### L 506.0200, L100.0600, L503.0106, L503.6030 #### [facility] [address] [place], [address] RBC (Bld) [#/Vol] 2.46 10*6/uL Low 4.6-6.2 [facility] Comment on above: Order Comment: 542-1 N Performed By: #### L 506.0200, L100.0600, L503.0106, L503.6030 #### [facility] [address] [place], [address] RDW SD 49.7 fl High 35.1-43.9 [facility] Comment on above: Order Comment: 542-1 N Performed By: #### L 506.0200, L100.0600, L503.0106, L503.6030 #### [facility] [address] [place], [address] WBC (Bld) [#/Vol] 12.0 10*3/uL High 4.4-11.0 [facility] Comment on above: Order Comment: 542-1 N Performed By: #### L 506.0200, L100.0600, L503.0106, L503.6030 #### [facility] [address] [place], [address] Progress Noteon 06-30-2025 Progress Note Normal [facility] Basic Metabolic Profile (BMP )on 06-28-2025 BUN/CRE 23.4 RATIO High - [facility] Comment on above: Order Comment: 212.1 Performed By: #### L 500.2500 #### [facility] [address] [place], [address] Calcium [Mass/Vol] 8.4 mg/dL Normal 7.6-11.0 [facility] Comment on above: Order Comment: 212.1 Performed By: #### L 500.2500 #### [facility] [address] [place], [address] Chloride [Moles/Vol] 100 mmol/L Normal 98-108 [facility] Comment on above: Order Comment: 212.1 Performed By: #### L 500.2500 #### [facility] [address] [place], [address] CO2 [Moles/Vol] 27.4 mmol/L Normal 21.0-32.0 [facility] Comment on above: Order Comment: 212.1 Performed By: #### L 500.2500 #### [facility] [address] [place], [address] Creatinine [Mass/Vol] 1.72 mg/dL High 0.70-1.20 [facility] Comment on above: Order Comment: 212.1 Performed By: #### L 500.2500 #### [facility] [address] [place], [address] GAP 10 Normal 5-15 [facility] Comment on above: Order Comment: 212.1 Performed By: #### L 500.2500 #### [facility] [address] [place], [address] GFR/1.73 sq M.predicted among non-blacks MDRD (S/P/Bld) [Vol rate/Area] 38 mL/min/{1.73_m2} Low >60 [facility] Comment on above: Order Comment: 212.1 Result Comment: mL/m in/1.73m2 CKD-EPI Creatinine Equation (2020) Performed By: #### L 500.2500 #### [facility] [address] [place], [address] Glucose [Mass/Vol] 88 mg/dL Normal 70-99 [facility] Comment on above: Order Comment: 212.1 Performed By: #### L 500.2500 #### [facility] [address] [place], [address] Potassium [Moles/Vol] 3.9 mmol/L Normal 3.3-5.1 [facility] Comment on above: Order Comment: 212.1 Performed By: #### L 500.2500 #### [facility] [address] [place], [address] Sodium [Moles/Vol] 137 mmol/L Normal 133-145 [facility] Comment on above: Order Comment: 212.1 Performed By: #### L 500.2500 #### [facility] [address] [place], [address] Urea nitrogen [Mass/Vol] 40 mg/dL High 4-19 [facility] Comment on above: Order Comment: 212.1 Performed By: #### L 500.2500 #### [facility] [address] [place], [address] 36on 06-24-2025 36 Normal [facility] 36 Normal [facility] 36 06/24/25 BMP, blood pressure, pulse summary, and medication notes faxed from [facility]. Records scanned to Media. Normal [facility] Basic Metabolic Profile (BMP )on 06-24-2025 BUN/CRE 25.8 RATIO High 10-20 [facility] Comment on above: Order Comment: 212.1 Performed By: #### L 500.2500 #### [facility] [address] [place], [address] Calcium [Mass/Vol] 8.4 mg/dL Normal 7.6-11.0 [facility] Comment on above: Order Comment: 212.1 Performed By: #### L 500.2500 #### [facility] [address] [place], [address] Chloride [Moles/Vol] 97 mmol/L Low 98-108 [facility] Comment on above: Order Comment: 212.1 Performed By: #### L 500.2500 #### [facility] [address] [place], [address] CO2 [Moles/Vol] 26.9 mmol/L Normal 21.0-32.0 [facility] Comment on above: Order Comment: 212.1 Performed By: #### L 500.2500 #### [facility] [address] [place], [address] Creatinine [Mass/Vol] 1.80 mg/dL High 0.70-1.20 [facility] Comment on above: Order Comment: 212.1 Performed By: #### L 500.2500 #### [facility] [address] [place], [address] GAP 12 Normal 5-15 [facility] Comment on above: Order Comment: 212.1 Performed By: #### L 500.2500 #### [facility] [address] [place], [address] GFR/1.73 sq M.predicted among non-blacks MDRD (S/P/Bld) [Vol rate/Area] 36 mL/min/{1.73_m2} Low >60 [facility] Comment on above: Order Comment: 212.1 Result Comment: mL/m in/1.73m2 CKD-EPI Creatinine Equation (2020) Performed By: #### L 500.2500 #### [facility] [address] [place], [address] Glucose [Mass/Vol] 87 mg/dL Normal 70-99 [facility] Comment on above: Order Comment: 212.1 Performed By: #### L 500.2500 #### [facility] [address] [place], [address] Potassium [Moles/Vol] 3.8 mmol/L Normal 3.3-5.1 [facility] Comment on above: Order Comment: 212.1 Performed By: #### L 500.2500 #### [facility] [address] [place], [address] Sodium [Moles/Vol] 137 mmol/L Normal 133-145 [facility] Comment on above: Order Comment: 212.1 Performed By: #### L 500.2500 #### [facility] [address] [place], [address] Urea nitrogen [Mass/Vol] 47 mg/dL High 4-19 [facility] Comment on above: Order Comment: 212.1 Performed By: #### L 500.2500 #### [facility] [address] [place], [address] Progress Noteon 06-24-2025 Progress Note Attempted to meet with pt. He no longer resides here. Facility uncertain where he has moved to. Message left on primary contacts number Bereket to return call to the palliative group at [phone] [facility] BASIC METABOLIC PANELon 06-09 Anion gap [Moles/Vol] 15 mmol/L High 3-13 [facility] Comment on above: Performed By: #### L AB15 ####Finishing Supervisor [employer]: UNA ARCE ([phone])[facility] ([facility])[address] Calcium [Mass/Vol] 8.4 mg/dL Low 8.8-10.0 [facility] Comment on above: Performed By: #### L AB15 ####Finishing Supervisor [employer]: UNA ARCE ([phone])[facility] ([facility])[address] Chloride [Moles/Vol] 97 mmol/L Low 98-107 [facility] Comment on above: Performed By: #### L AB15 ####Finishing Supervisor [employer]: UNA MOHRCER ([phone])[facility] [place] ([facility])[address] CO2 [Moles/Vol] 25 mmol/L Normal 23-31 [facility] Comment on above: Performed By: #### L AB15 ####Finishing Supervisor [employer]: UNA ARCE ([phone])[facility] [place] ([facility])[address] Creatinine [Mass/Vol] 1.97 mg/dL High 0.72-1.25 [facility] Comment on above: Performed By: #### L AB15 ####Finishing Supervisor [employer]: UNA STAUFFERMELANIE ([phone])[facility] [place] ([facility])[address] GLOMERULAR FILTRATION RATE ML/MIN/1.73 SQ M.PREDICTED 31.9 mL/min/1.73m*2 Low >60.0 [facility] Comment on above: Result Comment: Calc ulation based on the Chronic Kidney Disease Epidemiology Collaboration (CKD-EPI) equation refit without adjustment for race Performed By: #### L AB15 ####Finishing Supervisor [employer]: UNA ARCE ([phone])[facility] [place] ([facility])[address] Glucose [Mass/Vol] 108 mg/dL Normal 82-115 [facility] Comment on above: Performed By: #### L AB15 ####Finishing Supervisor [employer]: UNA ARCE ([phone])[facility] ([facility])[address] Potassium [Moles/Vol] 4.1 mmol/L Normal 3.5-5.1 [facility] Comment on above: Result Comment: [facility] potassium values may be up to 0.5 mmol/L lower than serum values. Performed By: #### L AB15 ####Finishing Supervisor [employer]: UNA ARCE ([phone])[facility] ([facility])[address] Sodium [Moles/Vol] 137 mmol/L Normal 136-145 [facility] Comment on above: Performed By: #### L AB15 ####Finishing Supervisor [employer]: UNA ARCE ([id number])[facility] Urea nitrogen [Mass/Vol] 51 mg/dL High 9-23 [facility] Comment on above: Performed By: #### L AB15 ####Finishing Supervisor [employer]: UNA ARCE ([id number])[facility] BLOOD TYPE AND SCREEN GELon 06-21-2025 ABO GROUPING A Normal [facility] Comment on above: Performed By: #### L [id number] ####Finishing Supervisor [employer]: UNA ARCE ([phone])[facility] ([facility])[address] [place] [address] RH TYPE IN BLOOD Negative Normal [facility] Comment on above: Performed By: #### L [id number] ####Finishing Supervisor [employer]: UNA ARCE ([phone])[facility] ([facility])[address] [place] [address] Basic Metabolic Profile (BMP )on 06-21-2025 BUN/CRE 25.4 RATIO High 10-20 [facility] Comment on above: Order Comment: 212.1 Performed By: #### L 100.0500, L500.2500 #### [facility] [address] [place], [address] Calcium [Mass/Vol] 8.4 mg/dL Normal 7.6-11.0 [facility] Comment on above: Order Comment: 212.1 Performed By: #### L 100.0500, L500.2500 #### [facility] [address] [place], [address] Chloride [Moles/Vol] 97 mmol/L Low 98-108 [facility] Comment on above: Order Comment: 212.1 Performed By: #### L 100.0500, L500.2500 #### [facility] [address] [place], [address] CO2 [Moles/Vol] 29.6 mmol/L Normal 21.0-32.0 [facility] Comment on above: Order Comment: 212.1 Performed By: #### L 100.0500, L500.2500 #### [facility] [address] [place], [address] Creatinine [Mass/Vol] 1.86 mg/dL High 0.70-1.20 [facility] Comment on above: Order Comment: 212.1 Performed By: #### L 100.0500, L500.2500 #### [facility] [address] [place], [address] GAP 10 Normal 5-15 [facility] Comment on above: Order Comment: 212.1 Performed By: #### L 100.0500, L500.2500 #### [facility] [address] [place], [address] GFR/1.73 sq M.predicted among non-blacks MDRD (S/P/Bld) [Vol rate/Area] 34 mL/min/{1.73_m2} Low >60 [facility] Comment on above: Order Comment: 212.1 Result Comment: mL/m in/1.73m2 CKD-EPI Creatinine Equation (2020) Performed By: #### L 100.0500, L500.2500 #### [facility] [address] [place], [address] Glucose [Mass/Vol] 93 mg/dL Normal 70-99 [facility] Comment on above: Order Comment: 212.1 Performed By: #### L 100.0500, L500.2500 #### [facility] [address] [place], [address] Potassium [Moles/Vol] 3.8 mmol/L Normal 3.3-5.1 [facility] Comment on above: Order Comment: 212.1 Performed By: #### L 100.0500, L500.2500 #### [facility] [address] [place], [address] Sodium [Moles/Vol] 136 mmol/L Normal 133-145 [facility] Comment on above: Order Comment: 212.1 Performed By: #### L 100.0500, L500.2500 #### [facility] [address] [place], [address] Urea nitrogen [Mass/Vol] 47 mg/dL High 4-19 [facility] Comment on above: Order Comment: 212.1 Performed By: #### L 100.0500, L500.2500 #### [facility] [address] [place], [address] Basic metabolic 1998 panelon 06-21-2025 Anion gap [Moles/Vol] 15 mmol/L High 3 - 13 mmol/L [facility] Calcium [Mass/Vol] 8.4 mg/dL Low 8.8 - 10. 0 mg/dL [facility] Chloride [Moles/Vol] 97 mmol/L Low 98 - 10 7 mmol/L [facility] CO2 [Moles/Vol] 25 mmol/L 23 - 31 mmol/L [facility] Creatinine [Mass/Vol] 1.97 mg/dL High 0.72 - 1.25 mg/dL [facility] GFR/1.73 sq M.predicted (S/P/Bld) [Vol rate/Area] 31.9 mL/min Low - PINF [facility] Comment on above: Calculation based on the Chronic Kidney Disease Epidemiology Collaboration (CKD-EPI) equation refit without adjustment for race Glucose [Mass/Vol] 108 mg/dL 82 - 115 mg/dL [facility] Interpretation and review of laboratory results Abnormal [facility] Potassium [Moles/Vol] 4.1 mmol/L 3.5 - 5.1 mmol/L [facility] Comment on above: Plasma potassium traci ues may be up to 0.5 mmol/L lower than serum values. Sodium [Moles/Vol] 137 mmol/L 136 - 145 mmol/L [facility] Urea nitrogen [Mass/Vol] 51 mg/dL High 9 - 23 mg/d L [facility] Blood type and Crossmatch pa valente (Bld)on 06-21-2025 ABO group Nom (Bld) A [facility] Blood group antibody screen GEL Ql Negative [facility] D Ag Ql (RBC) Negative [facility] CBC W Auto Differential pane l (Bld)Ordered By: Sallie Powell on 06-21-2025 Erythrocyte distribution width (RBC) [Ratio] 16.7 % High 11.5 - 15.0 % [facility] Hematocrit (Bld) [Volume fraction] 23.3 % Low 40.0 - 52.0 % [facility] Hemoglobin (Bld) [Mass/Vol] 7.4 g/dL Low 13.0 - 18.0 g/dL [facility] Interpretation and review of laboratory results Abnormal [facility] MCH (RBC) [Entitic mass] 29 pg 26. 0 - 34.0 pg [facility] MCHC (RBC) [Mass/Vol] 31.8 % 30.5 - 36.0 % [facility] MCV (RBC) [Entitic vol] 91.4 fL 77.0 - 99.0 fL [facility] Platelet mean volume (Bld) [Entitic vol] 8.5 fL Low 9.0 - 12.7 fL [facility] Platelets (Bld) [#/Vol] 513 10*3/uL High 140 - 440 10*3/uL [facility] RBC (Bld) [#/Vol] 2.55 10*6/uL Low 4.40 - 5.9 0 10*6/uL [facility] WBC (Bld) [#/Vol] 16.8 10*3/uL High 3.6 - 10.7 10*3/uL [facility] CBC WITH AUTO DIFFERENTIALon 06-21-2025 Erythrocyte distribution width (RBC) [Ratio] 16.7 % High 11.5-15.0 [facility] Comment on above: Performed By: #### L [id number], [id number] ####Finishing Supervisor [employer]: UNA ARCE ([id number])[facility] ([facility] Hematocrit (Bld) [Volume fraction] 23.3 % Low 40.0-52.0 [facility] Comment on above: Performed By: #### L [id number], [id number] ####Finishing Supervisor [employer]: UNA ARCE ([id number])[facility] ([facility])[address] Hemoglobin (Bld) [Mass/Vol] 7.4 g/dL Low 13.0-18.0 [facility] Comment on above: Performed By: #### L [id number], [id number] ####Finishing Supervisor [employer]: UNA ARCE ([id number])[facility] [place] ([facility])[address] MCH (RBC) [Entitic mass] 29.0 pg Normal 26.0-34.0 [facility] Comment on above: Performed By: #### L [id number], [id number] ####Finishing Supervisor [employer]: UNA ARCE ([id number])[facility] ([facility])[address] MCHC 31.8 % Normal 30.5-36.0 [facility] Comment on above: Performed By: #### L [id number], [id number] ####Finishing Supervisor [employer]: UNA ARCE ([id number])[facility] ([facility])[address] MCV (RBC) [Entitic vol] 91.4 fL Normal 77.0-99.0 [facility] Comment on above: Performed By: #### L [id number], [id number] ####Finishing Supervisor [employer]: UNA ARCE ([id number])[facility] ([facility])[address] Platelet mean volume (Bld) [Entitic vol] 8.5 fL Low 9.0-12.7 [facility] Comment on above: Performed By: #### L [id number], [id number] ####Finishing Supervisor [employer]: UNA ARCE ([id number])[facility] ([facility])[address] Platelets (Bld) [#/Vol] 513 10*3/uL High 140-440 [facility] Comment on above: Performed By: #### L [id number], [id number] ####Finishing Supervisor [employer]: UNA ARCE ([id number])[facility] ([facility])[address] RBC (Bld) [#/Vol] 2.55 10*6/uL Low 4.40-5.90 [facility] Comment on above: Performed By: #### L [id number], [id number] ####Finishing Supervisor [employer]: UNA ARCE ([id number])[facility] ([facility])[address] WBC (Bld) [#/Vol] 16.8 10*3/uL High 3.6-10.7 [facility] Comment on above: Performed By: #### L [id number], [id number] ####Finishing Supervisor [employer]: UNA ARCE ([id number])[facility] ([facility])[address] CBC-Complete Blood Cnt No Di ffon 06-21-2025 Erythrocyte distribution width (RBC) [Ratio] 16.8 % High 11.6-14.6 [facility] Comment on above: Order Comment: 212.1 Performed By: #### L 100.0500, L500.2500 #### [facility] [address] [place], [address] Hematocrit (Bld) [Volume fraction] 21.5 % Low 40-54 [facility] Comment on above: Order Comment: 212.1 Performed By: #### L 100.0500, L500.2500 #### [facility] [address] [place], [address] Hemoglobin (Bld) [Mass/Vol] 6.9 g/dL Low 13.0-16.5 [facility] Comment on above: Order Comment: 212.1 Performed By: #### L 100.0500, L500.2500 #### [facility] [address] [place], [address] MCH (RBC) [Entitic mass] 28.8 pg Normal 27.0-32.0 [facility] Comment on above: Order Comment: 212.1 Performed By: #### L 100.0500, L500.2500 #### [facility] [address] [place], [address] MCHC (RBC) [Mass/Vol] 32.1 g/dL Normal 32-36 [facility] Comment on above: Order Comment: 212.1 Performed By: #### L 100.0500, L500.2500 #### [facility] [address] [place], [address] MCV (RBC) [Entitic vol] 89.6 fL Normal 80-94 [facility] Comment on above: Order Comment: 212.1 Performed By: #### L 100.0500, L500.2500 #### [facility] [address] [place], [address] Platelet mean volume (Bld) [Entitic vol] 8.7 fL Normal 6.2-12.0 [facility] Comment on above: Order Comment: 212.1 Performed By: #### L 100.0500, L500.2500 #### [facility] [address] [place], [address] Platelets (Bld) [#/Vol] 457 10*3/uL High 150-450 [facility] Comment on above: Order Comment: 212.1 Performed By: #### L 100.0500, L500.2500 #### [facility] [address] [place], [address] RBC (Bld) [#/Vol] 2.40 10*6/uL Low 4.6-6.2 [facility] Comment on above: Order Comment: 212.1 Performed By: #### L 100.0500, L500.2500 #### [facility] [address] [place], [address] RDW SD 55.8 fl High 35.1-43.9 [facility] Comment on above: Order Comment: 212.1 Performed By: #### L 100.0500, L500.2500 #### [facility] [address] [place], [address] WBC (Bld) [#/Vol] 14.3 10*3/uL High 4.4-11.0 [facility] Comment on above: Order Comment: 212.1 Performed By: #### L 100.0500, L500.2500 #### [facility] [address] [place], [address] ECG 12-LEADon 06-21-2025 ECG 12-LEAD IMPRESSION: Sinus rhythm Atrial premature complexes Left anterior fascicular block Similar to prior on 04/13/25 Electronically Signed On 06-21-2025 23:12:12 EDT by Sagar Gilliam [facility] ED Nursing Noteon 06-21-2025 ED Nursing Note This RN at bedside for first 15 minutes of blood transfusion. Pt tolerating transfusion. VS updated in system. [facility] ED Nursing Note Patient arrives via EMS from [facility] following bloodwork that showed low hemoglobin. No overt signs of bleeding on arrival. Patient A&O4. Patient does endorse previous blood transfusions. Normal [facility] ED Provider Noteon ED Provider Note Normal [facility] Laboratory - Hematology and Cell countson 06-21-2025 Eosinophils (Bld) [#/Vol] 0.3 10*3/uL 0.0 - 0.5 10*3/uL [facility] Eosinophils/100 WBC (Bld) 2 % 0 - 6 % [facility] Giant platelets LM Ql (Bld) Rare Abnormal (none) [facility] Hypochromia Ql (Bld) Slight Abnormal (none) [facility] Lymphocytes (Bld) [#/Vol] 4 10*3/uL 1.0 - 4.3 10*3/uL [facility] Lymphocytes/100 WBC (Bld) 24 % 15 - 45 % [facility] Monocytes (Bld) [#/Vol] 1.2 10*3/uL High 0.0 - 0.9 10*3/uL [facility] Monocytes/100 WBC (Bld) 7 % 5 - 13 % [facility] Neutrophils (Bld) [#/Vol] 11.3 10*3/uL High 1.8 - 7.5 10*3/uL [facility] Ovalocytes LM Ql (Bld) Rare Abnormal (none) [facility] RBC morphology finding Nom (Bld) abnormal [facility] Segmented neutrophils/100 WBC (Bld) 67 % 38 - 82 % [facility] MANUAL DIFFERENTIAL (CELLAVI BANDAR)on 06-21-2025 BAND NEUTROPHILS TOTAL PER COUNTED LEUKOCYTES BY MANUAL COUNT Normal [facility] Comment on above: Performed By: #### L [id number], [id number] ####Finishing Supervisor [employer] Sheets: UNA ARCE ([phone])[facility] ([facility])[address] [place] [address] BASOPHILS TOTAL PER COUNTED LEUKOCYTES BY MANUAL COUNT Normal [facility] Comment on above: Performed By: #### L [id number], [id number] ####Finishing Supervisor [employer]: UNA ARCE ([phone])[facility] ([facility])[address] [place] [address] [place] BLASTS TOTAL PER COUNTED LEUKOCYTES BY MANUAL COUNT Normal [facility] Comment on above: Performed By: #### L [id number], [id number] ####Finishing Supervisor [employer] Sheets: UNA ARCE ([phone])[facility] ([facility])[address] [place] [address] [place] EOSINOPHILS (10*3/UL) IN BLOOD-CELLAVISION 0.3 10*3/uL Normal 0.0-0.5 [facility] Comment on above: Performed By: #### L [id number], [id number] ####Finishing Supervisor [employer] Sheets: UNA ARCE ([phone])[facility] ([facility])[address] [place] [address] [place] EOSINOPHILS TOTAL PER COUNTED LEUKOCYTES BY MANUAL COUNT 2 High 0-1 [facility] Comment on above: Performed By: #### L [id number], [id number] ####Finishing Supervisor [employer]: UNA ARCE ([phone])[facility] ([facility])[address] [place] [address] [place] EOSINOPHILS/100 LEUKOCYTES IN BLOOD-CELLAVISION 2 % Normal 0-6 [facility] Comment on above: Performed By: #### L [id number], [id number] ####Finishing Supervisor [employer] Sheets: UNA ARCE ([phone])[facility] [place] [address] [place] HYPOCHROMIA (PRESENCE) IN BLOOD BY LIGHT MICROSCOPY Slight Abnormal (none) [facility] Comment on above: Performed By: #### L [id number], [id number] ####Finishing Supervisor [employer] Sheets: UNA ARCE ([phone])[facility] [place] [address] [place] LYMPHOCYTES (10*3/UL) IN BLOOD-CELLAVISION 4.0 10*3/uL Normal 1.0-4.[address] [facility] Comment on above: Performed By: #### L [id number], [id number] ####Finishing Supervisor [employer] Sheets: UNA [phone])[facility] ([facility])[address] [place] [address] [place] LYMPHOCYTES TOTAL PER COUNTED LEUKOCYTES BY MANUAL COUNT [address] [facility] Comment on above: Performed By: #### L [id number], [id number] ####Finishing Supervisor [employer] Sheets: UNA ARCE ([phone])[facility] ([facility])[address] [place] [address] [place] LYMPHOCYTES/100 LEUKOCYTES IN BLOOD-CELLAVISION 24 % Normal 15-[address] [facility] Comment on above: Performed By: #### L [id number], [id number] ####Finishing Supervisor [employer] Sheets: UNA ARCE ([id number])[facility] [place] ([facility])[address] [place] [address] [place] METAMYELOCYTES TOTAL PER COUNTED LEUKOCYTES BY MANUAL COUNT Normal [facility] Comment on above: Performed By: #### L [id number], [id number] ####Finishing Supervisor [employer] Sheets: UNA ARCE ([phone])[facility] [place] ([facility])[address] [place] [address] [place] MONOCYTES (10*3/UL) IN BLOOD-CELLAVISION 1.2 10*3/uL High 0.0-0.[address] [facility] Comment on above: Performed By: #### L [id number], [id number] ####Finishing Supervisor [employer] Sheets: UNA ARCE ([phone])[facility] [place] ([facility])[address] [place] [address] [place] MONOCYTES TOTAL PER COUNTED LEUKOCYTES BY MANUAL COUNT [address] [facility] Comment on above: Performed By: #### L [id number], [id number] ####Finishing Supervisor [employer] Sheets: UNA ARCE ([phone])[facility] [place] ([facility])[address] [place] [address] [place] MONOCYTES/100 LEUKOCYTES IN BLOOD-LUCIANA 7 % Normal 5-[address] [facility] Comment on above: Performed By: #### L [id number], [id number] ####Finishing Supervisor [employer] Sheets: UAN ARCE ([phone])[facility] ([facility])[address] [place] [address] [place] MYELOCYTES COUNTED BY MANUAL COUNT Normal [facility] Comment on above: Performed By: #### L [id number], [id number] ####Finishing Supervisor [employer] Sheets: UNA STAUFFERMELANIE ([phone])[facility] ([facility])[address] [place] [address] [place] NEUTROPHILS TOTAL PER COUNTED LEUKOCYTES BY MANUAL COUNT [address] [facility] Comment on above: Performed By: #### L [id number], [id number] ####Finishing Supervisor [employer] Sheets: UNA BERMUDEZPEDRO ([phone])[facility] [place] ([facility])[address] [place] [address] [place] OVALOCYTES PRESENCE IN BLOOD BY LIGHT MICROSCOPY Rare Abnormal (none) [facility] Comment on above: Performed By: #### L [id number], [id number] ####Finishing Supervisor [employer] Sheets: UNA ARCE ([phone])[facility] [place] ([facility])[address] [place] [address] [place] PLATELETS GIANT PRESENCE IN BLOOD BY LIGHT MICROSCOPY Rare Abnormal (none) [facility] Comment on above: Performed By: #### L [id number], [id number] ####Finishing Supervisor [employer] Sheets: UNA ARCE ([phone])[facility] [place] ([facility])[address] [place] [address] [place] PROMYELOCYTES TOTAL PER COUNTED LEUKOCYTES BY MANUAL COUNT Normal [facility] Comment on above: Performed By: #### L [id number], [id number] ####Finishing Supervisor [employer]astic Sheets: UNA ARCE ([id number])[facility] [place] ([facility])[address] [place] [address] [place] RBC MORPHOLOGY IN BLOOD abnormal Normal [facility] Comment on above: Performed By: #### L [id number], [id number] ####Finishing Supervisor [employer]astic Sheets: UNA ARCE ([phone])[facility] [place] ([facility])[address] [place] [address] [place] SEGMENTED NEUTROPHILS (10*3/UL) IN BLOOD-CELLAVISION 11.3 10*3/uL High 1.8-7.5 [facility] Comment on above: Performed By: #### L [id number], [id number] ####Finishing Supervisor [employer]astic Sheets: UNA STAUFFERMELANIE ([phone])[facility] ([facility])[address] SEGMENTED NEUTROPHILS/100 LEUKOCYTES-CE 67 % Normal 38-82 [facility] Comment on above: Performed By: #### L [id number], [id number] ####Finishing Supervisor Plastic Sheets: UNA BERMUDEZPEDRO ([phone])[facility] [place] ([facility])[address] UNCLASSIFIED CELLS TOTAL PER COUNTED LEUKOCYTES BY MANUAL COUNT [facility] Comment on above: Performed By: #### L [id number], [id number] ####Finishing Supervisor Plastic Sheets: UNA STAUFFERMELANIE ([phone])[facility] [place] ([facility])[address] VARIANT LYMPHOCYTES TOTAL PER COUNTED LEUKOCYTES BY MANUAL COUNT [facility] Comment on above: Performed By: #### L [id number], [id number] ####Finishing Supervisor [employer]astic Sheets: UNA BERMUDEZPEDRO ([id number])[facility] [place] ([facility])[address] No Panel Informationon 06-21 P [place] 17 degrees [facility] GA Interval 189 ms [facility] QRS [place] -50 degrees [facility] QRSD Interval 116 ms [facility] QT Interval 434 ms [facility] QTC Interval 436 ms [facility] T Wave [place] 37 degrees [facility] Sinus rhythm Atrial premature complexes Left anterior fascicular block Similar to prior on 04/13/25 Electronically Signed On 06-21-2025 23:12:12 EDT by Sagar Posey, - 06/21/2025 IMPRESSION: Sinus rhythm Atrial premature complexes Left anterior fascicular block Similar to prior on 04/13/25 Electronically Signed On 06-21-2025 23:12:12 EDT by Sagar Gilliam [facility] Blood Expiration Date [id number] [facility] Crossmatch interpretation COMP [facility] Dispense Status Transfused [facility] lt Product Blood Type 600 [facility] PRODUCT CODE [id number] [facility] Unit ABO A [facility] Unit Number [id number] [facility] RH Negative [facility] Unit Volume 300 mL [facility] Atypical Lymphocytes Manual [facility] Bands Manual [facility] Basophils Manual [facility] alth Blasts Manual [facility]alt [facility] Eosinophils Manual 2 High 0 - 1 [facility] Interpretation and review of laboratory results Abnormal [facility] Lymphocytes Manual 24 [facility] Metamyelocytes Manual [facility] Monocytes Manual 7 [facility] alth Myelocytes Manual [facility] ealt Neutrophils Manual 67 [facility] Promyelocytes Manual [facility] Unclassified Cells, Manual [facility] Vital signson 06-21-2025 Heart rate 63 /min bpm [facility] 36on 06-18-2025 36 Noted; thank you. Normal [facility] System [facility] 36on 06-17-[address] [facility] [address] [facility] BASIC METABOLIC PANELon Anion gap [Moles/Vol] 13 mmol/L Normal 3-13 [facility] Comment on above: Performed By: #### L [id number] ####Finishing Supervisor Plastic Sheets: ANAHY AVILA ([phone])[facility] ([facility])[address] [place] [address] [place] Calcium [Mass/Vol] 9.2 mg/dL Normal 8.8-10.0 [facility] Comment on above: Performed By: #### L [id number] ####Finishing Supervisor Plastic Sheets: ANAHY AVILA ([phone])[facility] ([facility])[address] [place] [address] [place] Chloride [Moles/Vol] 98 mmol/L Normal 98-107 [facility] Comment on above: Performed By: #### L [id number] ####Finishing Supervisor Plastic Sheets: ANAHY AVILA ([phone])[facility] ([facility])[address] [place] [address] [place] CO2 [Moles/Vol] 29 mmol/L Normal 23-31 [facility] Comment on above: Performed By: #### L [id number] ####Finishing Supervisor [employer]astic Sheets: ANAHY AVILA ([id number])[facility] ([facility])[address] [place] [address] [place] Creatinine [Mass/Vol] 2.05 mg/dL High 0.72-1.25 [facility] Comment on above: Performed By: #### L [id number] ####Finishing Supervisor [employer]astic Sheets: ANAHY AVILA ([phone])[facility] ([facility])[address] [place] [address] [place] GLOMERULAR FILTRATION RATE ML/MIN/1.73 SQ M.PREDICTED 30.4 mL/min/1.73m*2 Low >60.0 [facility] Comment on above: Result Comment: Calc ulation based on the Chronic Kidney Disease Epidemiology Collaboration (CKD-EPI) equation refit without adjustment for race Performed By: #### L [id number] ####Finishing Supervisor [employer]astic Sheets: ANAHY AVILA ([phone])[facility] ([facility])[address] [place] [address] [place] Glucose [Mass/Vol] 109 mg/dL Normal 82-115 [facility] Comment on above: Performed By: #### L [id number] ####Finishing Supervisor Plastic Sheets: ANAHY AVILA ([id number])[facility] ([facility])[address] [place] [address] [place] Potassium [Moles/Vol] 4.3 mmol/L Normal 3.5-5.1 [facility] Comment on above: Result Comment: [facility] potassium values may be up to 0.5 mmol/L lower than serum values. Performed By: #### L [id number] ####Finishing Supervisor [employer]astic Sheets: ANAHY AVILA ([phone])[facility] [place] ([facility])[address] [place] [address] [place] Sodium [Moles/Vol] 140 mmol/L Normal 136-[address] [facility] Comment on above: Performed By: #### L [id number] ####Finishing Supervisor Plastic Sheets: ANAHY AVILA ([id number])[facility] ([facility])[address] Urea nitrogen [Mass/Vol] 54 mg/dL High 9-[address] [facility] Comment on above: Performed By: #### L [id number] ####Finishing Supervisor Plastic Sheets: ANAHY AVILA ([phone])[facility] ([facility])[address] Basic metabolic 1998 panelon 06-17-2025 Anion gap [Moles/Vol] 13 mmol/L 3 - 13 mmol/L [facility] Calcium [Mass/Vol] 9.2 mg/dL 8.8 - 10. 0 mg/dL [facility] Chloride [Moles/Vol] 98 mmol/L 98 - 10 7 mmol/L [facility] CO2 [Moles/Vol] 29 mmol/L 23 - 31 mmol/L [facility] Creatinine [Mass/Vol] 2.05 mg/dL High 0.72 - 1.25 mg/dL [facility] GFR/1.73 sq M.predicted (S/P/Bld) [Vol rate/Area] 30.4 mL/min Low - PINF [facility] Comment on above: Calculation based on the Chronic Kidney Disease Epidemiology Collaboration (CKD-EPI) equation refit without adjustment for race Glucose [Mass/Vol] 109 mg/dL 82 - 115 mg/dL [facility] Interpretation and review of laboratory results Abnormal [facility] Potassium [Moles/Vol] 4.3 mmol/L 3.5 - 5.1 mmol/L [facility] Comment on above: Plasma potassium traci ues may be up to 0.5 mmol/L lower than serum values. Sodium [Moles/Vol] 140 mmol/L 136 - 145 mmol/L [facility] Urea nitrogen [Mass/Vol] 54 mg/dL High 9 - 23 mg/d L [facility] CBC W Auto Differential pane l (Bld)Ordered By: Jessica Maldonado on 06-17-2025 Basophils (Bld) [#/Vol] 0.1 10*3/uL 0.0 - 0.2 10*3/uL [facility] Basophils/100 WBC (Bld) 0.7 % 0.0 - 2.0 % [facility] Eosinophils (Bld) [#/Vol] 0.4 10*3/uL 0.0 - 0.5 10*3/uL [facility] Eosinophils/100 WBC (Bld) 2.2 % 0.0 - 6.0 % [facility] Erythrocyte distribution width (RBC) [Ratio] 17.2 % High 11.5 - 15.0 % [facility] Hematocrit (Bld) [Volume fraction] 25.7 % Low 40.0 - 52.0 % [facility] Hemoglobin (Bld) [Mass/Vol] 8.2 g/dL Low 13.0 - 18.0 g/dL [facility] Immature granulocytes (Bld) [#/Vol] 0.2 10*3/uL High NINF - 0.1 10*3/uL [facility] Immature granulocytes/100 WBC (Bld) 1 % 0.0 - 2.0 % [facility] Interpretation and review of laboratory results Abnormal [facility] Lymphocytes (Bld) [#/Vol] 2.9 10*3/uL 1.0 - 4.3 10*3/uL [facility] Lymphocytes/100 WBC (Bld) 17.2 % 15.0 - 45.0 % [facility] MCH (RBC) [Entitic mass] 29.1 pg 26. 0 - 34.0 pg [facility] MCHC (RBC) [Mass/Vol] 31.9 % 30.5 - 36.0 % [facility] MCV (RBC) [Entitic vol] 91.1 fL 77.0 - 99.0 fL [facility] Monocytes (Bld) [#/Vol] 1.5 10*3/uL High 0.0 - 0.9 10*3/uL [facility] Monocytes/100 WBC (Bld) 9.1 % 5.0 - 13.0 % [facility] Neutrophils (Bld) [#/Vol] 11.5 10*3/uL High 1.8 - 7.5 10*3/uL [facility] Neutrophils/100 WBC (Bld) 69.8 % 38.0 - 82.0 % [facility] Nucleated RBC/100 WBC (Bld) [Ratio] 0 % [facility] Platelet mean volume (Bld) [Entitic vol] 8.7 fL Low 9.0 - 12.7 fL [facility] Comment on above: MPV is a calculated measurement using platelet volume ratio Platelets (Bld) [#/Vol] 517 10*3/uL High 140 - 440 10*3/uL [facility] RBC (Bld) [#/Vol] 2.82 10*6/uL Low 4.40 - 5.9 0 10*6/uL [facility] WBC (Bld) [#/Vol] 16.5 10*3/uL High 3.6 - 10.7 10*3/uL [facility] Moderate Anisocytosi s Slight Hypochromia [facility] CBC WITH AUTO DIFFERENTIALon 06-17-2025 Basophils (Bld) [#/Vol] 0.1 10*3/uL Normal 0.0-0.[address] [facility] Comment on above: Performed By: #### L [id number] ####Finishing Supervisor [employer] Sheets: ANAHY AVILA ([phone])[facility] ([facility])[address] [place] [address] [place] Basophils/100 WBC (Bld) 0.7 % Normal 0.0-2.0 [facility] Comment on above: Performed By: #### L [id number] ####Finishing Supervisor [employer] Sheets: ANAHY AVILA ([phone])[facility] ([facility])[address] [place] [address] [place] Eosinophils (Bld) [#/Vol] 0.4 10*3/uL Normal 0.0-0.[address] [facility] Comment on above: Performed By: #### L [id number] ####Finishing Supervisor [employer] Sheets: ANAHY AVILA ([phone])[facility] ([facility])[address] [place] [address] [place] Eosinophils/100 WBC (Bld) 2.2 % Normal 0.0-6.[address] [facility] Comment on above: Performed By: #### L [id number] ####Finishing Supervisor [employer]: ANAHY AVILA ([id number])[facility] ([facility])[address] [place] [address] Erythrocyte distribution width (RBC) [Ratio] 17.2 % High 11.5-15.0 [facility] Comment on above: Performed By: #### L [id number] ####Finishing Supervisor [employer] Sheets: ANAHY AVILA ([id number])LYNETTE MONTOYA [place] ([facility])[address] [place] [address] Hematocrit (Bld) [Volume fraction] 25.7 % Low 40.0-52.0 [facility] Comment on above: Performed By: #### L [id number] ####Finishing Supervisor [employer] Sheets: ANAHY AVILA ([phone])[facility] ([facility])[address] [place] [address] Hemoglobin (Bld) [Mass/Vol] 8.2 g/dL Low 13.0-18.0 [facility] Comment on above: Performed By: #### L [id number] ####Finishing Supervisor [employer] Sheets: ANAHY AVILA ([phone])[facility] ([facility])[address] [place] [address] IMMATURE GRANS % 1.0 % Normal 0.0-2.0 [facility] Comment on above: Performed By: #### L [id number] ####Finishing Supervisor [employer] Sheets: ANAHY AVILA ([phone])LYNETTE [facility]TO[facility] [place] ([facility])[address] [place] [address] IMMATURE GRANS ABSOLUTE 0.2 10*3/uL High <0.1 [facility] Comment on above: Result Comment: ORDE R COMMENTS:Moderate AnisocytosisSlight Hypochromia Performed By: #### L [id number] ####Finishing Supervisor [employer]: ANAHY AVILA ([id number])[facility] ([facility])[address] [place] [address] Lymphocytes (Bld) [#/Vol] 2.9 10*3/uL Normal 1.0-4.3 [facility] Comment on above: Performed By: #### L [id number] ####Finishing Supervisor [employer] Sheets: ANAHY AVILA ([phone])LYNETTE MONTOYA [place] ([facility])[address] [place] [address] [place] Lymphocytes/100 WBC (Bld) 17.2 % Normal 15.0-45.[address] [facility] Comment on above: Performed By: #### L [id number] ####Finishing Supervisor [employer]: ANAHY AVILA ([id number])[facility] ([facility])[address] [place] [address] MCH (RBC) [Entitic mass] 29.1 pg Normal 26.0-34.[address] [facility] Comment on above: Performed By: #### L [id number] ####Finishing Supervisor [employer] Sheets: ANAHY AVILA ([id number])[facility] ([facility])[address] [place] [address] MCHC 31.9 % Normal 30.5-36.[address] [facility] Comment on above: Performed By: #### L [id number] ####Finishing Supervisor [employer] Sheets: ANAHY AVILA ([phone])[facility] ([facility])[address] [place] [address] [place] MCV (RBC) [Entitic vol] 91.1 fL Normal 77.0-99.0 [facility] Comment on above: Performed By: #### L [id number] ####Finishing Supervisor [employer] Sheets: ANAHY AVILA ([phone])[facility] ([facility])[address] [place] [address] [place] Monocytes (Bld) [#/Vol] 1.5 10*3/uL High 0.0-0.[address] [facility] Comment on above: Performed By: #### L [id number] ####Finishing Supervisor [employer]: ANAHY AVILA ([phone])LYNETTE MONTOYA [place] ([facility])[address] [place] [address] [place] Monocytes/100 WBC (Bld) 9.1 % Normal 5.0-13.0 [facility] Comment on above: Performed By: #### L [id number] ####Finishing Supervisor [employer]astic Sheets: ANAHY AVILA ([phone])LYNETTE MONTOYA [place] (SWRLAB)[address] [place] [address] NEUTROPHILS ABSOLUTE 11.5 10*3/uL High 1.8-7.5 [facility] Comment on above: Performed By: #### L [id number] ####Finishing Supervisor [employer]astic Sheets: ANAHY AVILA ([phone])[facility] [place] (SWRLAB)[address] [place] [address] Neutrophils/100 WBC (Bld) 69.8 % Normal 38.0-82.0 [facility] Comment on above: Performed By: #### L [id number] ####Finishing Supervisor [employer]astic Sheets: ANAHY AVILA ([phone])[facility] [place] (SWRLAB)[address] [place] [address] NRBC 0.0 /100 WBCs Normal 0.0-2.0 [facility] Comment on above: Performed By: #### L [id number] ####Finishing Supervisor [employer]astic Sheets: ANAHY AVILA ([phone])[facility] [place] (SWRLAB)[address] [place] [address] Platelet mean volume (Bld) [Entitic vol] 8.7 fL Low 9.0-12.7 [facility] Comment on above: Result Comment: MPV is a calculated measurement using platelet volume ratio Performed By: #### L [id number] ####Finishing Supervisor [employer] Sheets: ANAHY AVILA ([phone])[facility] [place] (SWRLAB)[address] [place] [address] Platelets (Bld) [#/Vol] 517 10*3/uL High 140-440 [facility] Comment on above: Performed By: #### L [id number] ####Finishing Supervisor [employer]astic Sheets: ANAHY AVILA ([phone])[facility] [place] (SWRLAB)[address] [place] [address] RBC (Bld) [#/Vol] 2.82 10*6/uL Low 4.40-5.90 [facility] Comment on above: Performed By: #### L [id number] ####Finishing Supervisor Plastic Sheets: ANAHY AVILA ([phone])[facility] [place] (SWRLAB)[address] WBC (Bld) [#/Vol] 16.5 10*3/uL High 3.6-10.7 [facility] Comment on above: Performed By: #### L [id number] ####Finishing Supervisor [employer]astic Sheets: ANAHY AVILA ([phone])[facility] [place] (SWRLAB)[address] Progress Noteon 06-17-2025 Progress Note [facility] Progress Note [facility] Progress Noteon 06-02-2025 Progress Note Normal [facility] Progress Noteon 05-19-2025 Progress Note Normal [facility] Progress Noteon 05-11-2025 Progress Note Normal [facility] Progress Noteon 05-06-2025 Progress Note Normal [facility] Progress Noteon 05-04-2025 Progress Note Normal [facility] Progress Noteon 05-03-2025 Progress Note [facility] Progress Note CT abdomen with mura l thickening involving the cecum and terminal ileum concern for neoplasm versus inflammation. Seen by GI with plan for EGD and colonoscopy once stable. -GI follow-up Normal [facility] Progress Note Noted to have irregular heart rhythm during hospitalization and multiple EKGs show sinus rhythm with frequent PACs. -Continue Toprol 25 mg p.o. daily Normal [facility] Progress Note Normal [facility] Progress Note Creatinine 1.46 on admission. Peak creatinine 1.78. Most recent creatinine 1.8 per labs 04/26/2025 - Continue to monitor - may have to accept a higher creatinine to keep him out of HF Normal [facility] Progress Note Bedside thoracentesi s 04/09/2025 with 1 L removed from the left and 600 mL removed from the right. Repeat left thoracentesis 04/14/2025 with 600 mL removed. 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 NO angina. - no ASA 2/2 anemia - continue Toprol 25 mg po daily - continue atorvastatin 20 mg po daily - not a candidate or invasive workup due to anemia, advanced age and frailty Normal [facility] Progress Note Normal [facility] Progress Noteon 04-27-2025 Progress Note Normal [facility] Progress Noteon 04-20-2025 Progress Note Normal [facility] Progress Noteon 04-19-2025 Progress Note Normal [facility] [id number] 04-18-2025 [id number] Normal [facility] [id number] 04-17-2025 [id number] Normal [facility] [id number] Detention/SNF - [facility] Member [address] [place] [address] [phone] [id number] Patient/Family Choice Normal [facility] [id number] Normal [facility] CBC W Auto Differential pane l (Bld)on 04-17-2025 Erythrocyte distribution width (RBC) [Ratio] 25.7 % High 11.5 - 15.0 % [facility] Hematocrit (Bld) [Volume fraction] 27.9 % Low 40.0 - 52.0 % [facility] Hemoglobin (Bld) [Mass/Vol] 7.9 g/dL Low 13.0 - 18.0 g/dL [facility] MCH (RBC) [Entitic mass] 23.8 pg Low 26. 0 - 34.0 pg [facility] MCHC (RBC) [Mass/Vol] 28.3 % Low 30.5 - 36.0 % [facility] MCV (RBC) [Entitic vol] 84 fL 77.0 - 99.0 fL [facility] Platelet mean volume (Bld) [Entitic vol] 9 fL 9.0 - 12.7 fL [facility] Platelets (Bld) [#/Vol] 419 10*3/uL 140 - 440 10*3/uL [facility] RBC (Bld) [#/Vol] 3.32 10*6/uL Low 4.40 - 5.9 0 10*6/uL [facility] WBC (Bld) [#/Vol] 12 10*3/uL High 3.6 - 10.7 10*3/uL [facility] CBC WITH AUTO DIFFERENTIALon 04-17-2025 Erythrocyte distribution width (RBC) [Ratio] 25.7 % High 11.5-15.0 [facility] Comment on above: Performed By: #### L [id number], [id number] ####Finishing Supervisor Plastic Sheets: UNA ARCE ([phone])[facility] (SBHLAB)[address] Hematocrit (Bld) [Volume fraction] 27.9 % Low 40.0-52.0 [facility] Comment on above: Performed By: #### L [id number], [id number] ####Finishing Supervisor Plastic Sheets: UNA ARCE ([phone])[facility] (SBHLAB)[address] [place] [address] Hemoglobin (Bld) [Mass/Vol] 7.9 g/dL Low 13.0-18.0 [facility] Comment on above: Performed By: #### Gilbert [id number], [id number] ####Finishing Supervisor [employer]astic Sheets: UNA ARCE ([id number])[facility] (SBHLAB)[address] [place] [address] MCH (RBC) [Entitic mass] 23.8 pg Low 26.0-34.0 [facility] Comment on above: Performed By: #### L [id number], [id number] ####Finishing Supervisor Plastic Sheets: UNA ARCE ([phone])[facility] (SBHLAB)[address] MCHC 28.3 % Low 30.5-36.0 [facility] Comment on above: Performed By: #### L [id number], [id number] ####Finishing Supervisor Plastic Sheets: UNA ARCE ([id number])[facility] (SBHLAB)[address] MCV (RBC) [Entitic vol] 84.0 fL Normal 77.0-99.0 [facility] Comment on above: Performed By: #### L [id number], [id number] ####Finishing Supervisor Plastic Sheets: UNA ARCE ([id number])LYNETTE ESCOTO (SBHLAB)[address] Platelet mean volume (Bld) [Entitic vol] 9.0 fL Normal 9.0-12.7 [facility] Comment on above: Performed By: #### L [id number], [id number] ####Finishing Supervisor Plastic Sheets: UNA ARCE ([id number])[facility] (SBHLAB)[address] Platelets (Bld) [#/Vol] 419 10*3/uL Normal 140-440 [facility] Comment on above: Performed By: #### L [id number], [id number] ####Finishing Supervisor Plastic Sheets: UNA ARCE ([id number])[facility] (SBHLAB)[address] [place] [address] RBC (Bld) [#/Vol] 3.32 10*6/uL Low 4.40-5.90 [facility] Comment on above: Performed By: #### L [id number], [id number] ####Finishing Supervisor Plastic Sheets: UNA ARCE ([id number])[facility] (SBHLAB)[address] [place] [address] WBC (Bld) [#/Vol] 12.0 10*3/uL High 3.6-10.7 [facility] Comment on above: Performed By: #### L [id number], [id number] ####Finishing Supervisor Plastic Sheets: UNA ARCE ([id number])[facility] (SBHLAB)[address] COMPREHENSIVE METABOLIC PANE Anant 04-17-2025 Albumin [Mass/Vol] 2.1 g/dL Low 3.4-4.8 [facility] Comment on above: Performed By: #### L [id number], LAB17 ####Finishing Supervisor Plastic Sheets: UNA ARCE ([id number])[facility] (SBHLAB)[address] ALP [Catalytic activity/Vol] 49 U/L Normal 40-[address] [facility] Comment on above: Performed By: #### L AB103, LAB17 ####Finishing Supervisor Plastic Sheets: UNA ARCE ([id number])[facility] [place] (SBHLAB)[address] [place] [address] [place] ALT [Catalytic activity/Vol] U/L Normal <40 [facility] Comment on above: Performed By: #### L AB103, LAB17 ####Finishing Supervisor Plastic Sheets: UNA ARCE ([phone])[facility] [place] (SBHLAB)[address] Anion gap [Moles/Vol] 10 mmol/L Normal 3-13 [facility] Comment on above: Performed By: #### L AB103, LAB17 ####Finishing Supervisor Plastic Sheets: UNA ARCE ([id number])[facility] [place] (SBHLAB)[address] AST [Catalytic activity/Vol] 22 U/L Normal <34 [facility] Comment on above: Performed By: #### L AB103, LAB17 ####Finishing Supervisor Plastic Sheets: UNA ARCE ([id number])[facility] [place] (SBHLAB)[address] [place] [address] [place] Bilirubin [Mass/Vol] 0.5 mg/dL Normal <1.2 [facility] Comment on above: Performed By: #### L AB103, LAB17 ####Finishing Supervisor Plastic Sheets: UNA ARCE ([phone])[facility] [place] (SBHLAB)[address] [place] [address] [place] Calcium [Mass/Vol] 8.4 mg/dL Low 8.8-10.[address] [facility] Comment on above: Performed By: #### L AB103, LAB17 ####Finishing Supervisor Plastic Sheets: UNA ARCE ([id number])LYNETTE BASHIRN (SBHLAB)[address] Chloride [Moles/Vol] 88 mmol/L Low 98-107 [facility] Comment on above: Performed By: #### L AB103, LAB17 ####Finishing Supervisor Plastic Sheets: UNA ARCE ([id number])[facility] (SBHLAB)[address] CO2 [Moles/Vol] 40 mmol/L High 23-31 [facility] Comment on above: Performed By: #### L AB103, LAB17 ####Finishing Supervisor Plastic Sheets: UNA ARCE ([id number])[facility] (HLAB)[address] Creatinine [Mass/Vol] 1.67 mg/dL High 0.72-1.25 [facility] Comment on above: Performed By: #### L DERICK, LAB17 ####Finishing Supervisor Plastic Sheets: UNA ARCE ([id number])[facility] (HLAB)[address] GLOMERULAR FILTRATION RATE ML/MIN/1.73 SQ M.PREDICTED 38.9 mL/min/1.73m*2 Low >60.0 [facility] Comment on above: Result Comment: Calc ulation based on the Chronic Kidney Disease Epidemiology Collaboration (CKD-EPI) equation refit without adjustment for race Performed By: #### L 103, LAB17 ####Finishing Supervisor Plastic Sheets: UNA ARCE ([phone])[facility] (SBHLAB)[address] [place] [address] [place] Glucose [Mass/Vol] 94 mg/dL Normal 82-115 [facility] Comment on above: Performed By: #### L AB103, LAB17 ####Finishing Supervisor Plastic Sheets: UNA ARCE ([phone])[facility] (HLAB)[address] Potassium [Moles/Vol] 3.6 mmol/L Normal 3.5-5.1 [facility] Comment on above: Result Comment: Plas ma potassium values may be up to 0.5 mmol/L lower than serum values. Performed By: #### L AB103, LAB17 ####Finishing Supervisor Plastic Sheets: UNA ARCE ([id number])[facility] [place] (SBHLAB)[address] Protein [Mass/Vol] 5.8 g/dL Low 6.4-8.3 [facility] Comment on above: Performed By: #### L AB103, LAB17 ####Finishing Supervisor Plastic Sheets: UNA ARCE ([phone])[facility] [place] (SBHLAB)[address] Sodium [Moles/Vol] 138 mmol/L Normal 136-145 [facility] Comment on above: Performed By: #### L AB103, LAB17 ####Finishing Supervisor Plastic Sheets: UNA ARCE ([phone])[facility] (SBHLAB)[address] Urea nitrogen [Mass/Vol] 46 mg/dL High 9-23 [facility] Comment on above: Performed By: #### L AB103, LAB17 ####Finishing Supervisor Plastic Sheets: UNA ARCE ([id number])[facility] (SBHLAB)[address] Comprehensive metabolic 1998 panelon 04-17-2025 Albumin [Mass/Vol] 2.1 g/dL Low 3.4 - 4.8 g/dL [facility] ALP [Catalytic activity/Vol] 49 U/L 40 - 150 U/L [facility] ALT [Catalytic activity/Vol] U/L NINF - 40 U/L [facility] Anion gap [Moles/Vol] 10 mmol/L 3 - 13 mmol/L [facility] AST [Catalytic activity/Vol] 22 U/L NINF - 34 U/L [facility] Bilirubin [Mass/Vol] 0.5 mg/dL NINF - 1.2 mg/dL [facility] Calcium [Mass/Vol] 8.4 mg/dL Low 8.8 - 10. 0 mg/dL [facility] Chloride [Moles/Vol] 88 mmol/L Low 98 - 10 7 mmol/L [facility] CO2 [Moles/Vol] 40 mmol/L High 23 - 31 mmol/L [facility] Creatinine [Mass/Vol] 1.67 mg/dL High 0.72 - 1.25 mg/dL [facility] GFR/1.73 sq M.predicted (S/P/Bld) [Vol rate/Area] 38.9 mL/min Low - PINF [facility] Glucose [Mass/Vol] 94 mg/dL 82 - 115 mg/dL [facility] Interpretation and review of laboratory results Abnormal [facility] Potassium [Moles/Vol] 3.6 mmol/L 3.5 - 5.1 mmol/L [facility] Protein [Mass/Vol] 5.8 g/dL Low 6.4 - 8.3 g/dL [facility] Sodium [Moles/Vol] 138 mmol/L 136 - 145 mmol/L [facility] Urea nitrogen [Mass/Vol] 46 mg/dL High 9 - 23 mg/d L [facility] Laboratory - Chemistry and C hemistry - challengeon 04-17-2025 Magnesium [Mass/Vol] 1.8 mg/dL 1.6 - 2 .6 mg/dL [facility] - Hematology and Cell countson 04-17-2025 Anisocytosis Ql (Bld) Slight Abnormal (none) [facility] Basophils (Bld) [#/Vol] 0.4 10*3/uL High 0.0 - 0.2 10*3/uL [facility] Basophils/100 WBC (Bld) 3 % High 0 - 2 % [facility] Eosinophils (Bld) [#/Vol] 0.2 10*3/uL 0.0 - 0.5 10*3/uL [facility] Eosinophils/100 WBC (Bld) 2 % 0 - 6 % [facility] Hypochromia Ql (Bld) Moderate Abnormal (none) [facility] Lymphocytes (Bld) [#/Vol] 1.3 10*3/uL 1.0 - 4.3 10*3/uL [facility] Lymphocytes/100 WBC (Bld) 11 % Low 15 - 45 % [facility] Monocytes (Bld) [#/Vol] 0.8 10*3/uL 0.0 - 0.9 10*3/uL [facility] Monocytes/100 WBC (Bld) 7 % 5 - 13 % [facility] Neutrophils (Bld) [#/Vol] 9.2 10*3/uL High 1.8 - 7.5 10*3/uL [facility] Poikilocytosis LM Ql (Bld) Moderate Abnormal (none) [facility] Polychromasia LM Ql (Bld) Slight Abnormal (none) [facility] RBC morphology finding Nom (Bld) abnormal [facility] Segmented neutrophils/100 WBC (Bld) 77 % 38 - 82 % [facility] Stomatocytes LM Ql (Bld) Moderate Abnormal (none) [facility] Target cells LM Ql (Bld) Slight Abnormal (none) [facility] MAGNESIUMon 04-17-2025 Magnesium [Mass/Vol] 1.8 mg/dL Normal 1.6-2.6 [facility] Comment on above: Result Comment: YARELI [place] COMMENTS:Higher values can be expected in females during menses. Performed By: #### L AB103, LAB17 ####Finishing Supervisor Plastic Sheets: UNA ARCE ([phone])[facility] (SBHLAB)[address] MANUAL DIFFERENTIAL (CELLAVI BANDAR)on 04-17-2025 ANISOCYTOSIS PRESENCE IN BLOOD BY LIGHT MICROSCOPY Slight Abnormal (none) [facility] Comment on above: Performed By: #### Gilbert [id number], [id number] ####Finishing Supervisor Plastic Sheets: UNA ARCE ([id number])[facility] (SBHLAB)[address] [place] [address] BAND NEUTROPHILS TOTAL PER COUNTED LEUKOCYTES BY MANUAL COUNT Normal [facility] Comment on above: Performed By: #### L [id number], [id number] ####Finishing Supervisor Plastic Sheets: UNA ARCE ([id number])[facility] (SBHLAB)[address] BASOPHILS (10*3/UL) IN BLOOD-CELLAVISION 0.4 10*3/uL High 0.0-0.2 [facility] Comment on above: Performed By: #### L [id number], [id number] ####Finishing Supervisor [employer]astic Sheets: UNA ARCE ([id number])[facility] (SBHLAB)[address] [place] [address] [place] BASOPHILS TOTAL PER COUNTED LEUKOCYTES BY MANUAL COUNT [address] [facility] Comment on above: Performed By: #### L [id number], [id number] ####Finishing Supervisor [employer]astic Sheets: UNA STAUFFERMELANIE ([id number])[facility] (SBHLAB)[address] [place] [address] [place] BASOPHILS/100 LEUKOCYTES IN BLOOD-CELLAVISION 3 % High 0-2 [facility] Comment on above: Performed By: #### L [id number], [id number] ####Finishing Supervisor [employer]astic Sheets: UNA ARCE ([id number])[facility] [place] (SBHLAB)[address] [place] [address] [place] BLASTS TOTAL PER COUNTED LEUKOCYTES BY MANUAL COUNT Normal [facility] Comment on above: Performed By: #### L [id number], [id number] ####Finishing Supervisor Plastic Sheets: UNA ARCE ([id number])[facility] [place] (SBHLAB)[address] [place] [address] [place] EOSINOPHILS (10*3/UL) IN BLOOD-CELLAVISION 0.2 10*3/uL Normal 0.0-0.[address] [facility] Comment on above: Performed By: #### L [id number], [id number] ####Finishing Supervisor Plastic Sheets: UNA ARCE ([phone])[facility] [place] (SBHLAB)[address] [place] [address] [place] EOSINOPHILS TOTAL PER COUNTED LEUKOCYTES BY MANUAL COUNT 2 High 0-[address] [facility] Comment on above: Performed By: #### L [id number], [id number] ####Finishing Supervisor Plastic Sheets: UNA ARCE ([id number])[facility] [place] (SBHLAB)[address] [place] [address] [place] EOSINOPHILS/100 LEUKOCYTES IN BLOOD-CELLAVISION 2 % Normal 0-[address] [facility] Comment on above: Performed By: #### L [id number], [id number] ####Finishing Supervisor [employer]astic Sheets: UNA ARCE ([phone])[facility] [place] (SBHLAB)[address] HYPOCHROMIA (PRESENCE) IN BLOOD BY LIGHT MICROSCOPY Moderate Abnormal (none) [facility] Comment on above: Performed By: #### L [id number], [id number] ####Finishing Supervisor Plastic Sheets: UNA ARCE ([id number])[facility] [place] (SBHLAB)[address] [place] [address] [place] LYMPHOCYTES (10*3/UL) IN BLOOD-CELLAVISION 1.3 10*3/uL Normal 1.0-4.3 [facility] Comment on above: Performed By: #### L [id number], [id number] ####Finishing Supervisor [employer]astic Sheets: UNA ARCE ([id number])[facility] [place] (SBHLAB)[address] LYMPHOCYTES TOTAL PER COUNTED LEUKOCYTES BY MANUAL COUNT 11 Normal [facility] Comment on above: Performed By: #### L [id number], [id number] ####Finishing Supervisor Plastic Sheets: UNA ARCE ([id number])[facility] (SBHLAB)[address] [place] [address] [place] LYMPHOCYTES/100 LEUKOCYTES IN BLOOD-CELLAVISION 11 % Low 15-[address] [facility] Comment on above: Performed By: #### L [id number], [id number] ####Finishing Supervisor Plastic Sheets: UNA ARCE ([id number])[facility] (SBHLAB)[address] [place] [address] [place] METAMYELOCYTES TOTAL PER COUNTED LEUKOCYTES BY MANUAL COUNT Normal [facility] Comment on above: Performed By: #### L [id number], [id number] ####Finishing Supervisor [employer]astic Sheets: UNA ARCE ([phone])[facility] [place] (SBHLAB)[address] [place] [address] [place] MONOCYTES (10*3/UL) IN BLOOD-CELLAVISION 0.8 10*3/uL Normal 0.0-0.9 [facility] Comment on above: Performed By: #### L [id number], [id number] ####Finishing Supervisor [employer]astic Sheets: UNA ARCE ([id number])[facility] (SBHLAB)[address] [place] [address] [place] MONOCYTES TOTAL PER COUNTED LEUKOCYTES BY MANUAL COUNT 7 Normal [facility] Comment on above: Performed By: #### L [id number], [id number] ####Finishing Supervisor [employer]astic Sheets: UNA ARCE ([id number])[facility] (SBHLAB)[address] [place] [address] [place] MONOCYTES/100 LEUKOCYTES IN BLOOD-LUCIANA 7 % Normal -13 [facility] Comment on above: Performed By: #### L [id number], [id number] ####Finishing Supervisor Plastic Sheets: UNA ARCE ([id number])[facility] [place] (SB[facility])[address] [place] [address] [place] MYELOCYTES COUNTED BY MANUAL COUNT Normal [facility] Comment on above: Performed By: #### L [id number], [id number] ####Finishing Supervisor [employer]astic Sheets: NUA ARCE ([id number])[facility] (SBHLAB)[address] [place] [address] [place] NEUTROPHILS TOTAL PER COUNTED LEUKOCYTES BY MANUAL COUNT 77 Normal [facility] Comment on above: Performed By: #### L [id number], [id number] ####Finishing Supervisor [employer] Sheets: UNA ARCE ([id number])[facility] (SBHLAB)[address] [place] [address] [place] POIKILOCYTOSIS (PRESENCE) IN BLOOD BY LIGHT MICROSCOPY Moderate Abnormal (none) [facility] Comment on above: Performed By: #### L [id number], [id number] ####Finishing Supervisor [employer]astic Sheets: UNA ARCE ([id number])[facility] (SBHLAB)[address] [place] [address] [place] POLYCHROMASIA IN BLOOD BY LIGHT MICROSCOPY Slight Abnormal (none) [facility] Comment on above: Performed By: #### L [id number], [id number] ####Finishing Supervisor [employer]astic Sheets: UNA ARCE ([id number])[facility] (SBHLAB)[address] [place] [address] [place] PROMYELOCYTES TOTAL PER COUNTED LEUKOCYTES BY MANUAL COUNT Normal [facility] Comment on above: Performed By: #### L [id number], [id number] ####Finishing Supervisor [employer]astic Sheets: UNA ARCE ([id number])[facility] (SBHLAB)[address] RBC MORPHOLOGY IN BLOOD abnormal Normal [facility] Comment on above: Performed By: #### L [id number], [id number] ####Finishing Supervisor [employer]astic Sheets: UNA ARCE ([phone])[facility] [place] (SB[facility])[address] SEGMENTED NEUTROPHILS (10*3/UL) IN BLOOD-CELLAVISION 9.2 10*3/uL High 1.8-7.5 [facility] Comment on above: Performed By: #### L [id number], [id number] ####Finishing Supervisor [employer]astic Sheets: UNA ARCE ([phone])[facility] [place] (SB[facility]AB)[address] [place] [address] [place] SEGMENTED NEUTROPHILS/100 LEUKOCYTES-CE 77 % Normal 38-82 [facility] Comment on above: Performed By: #### L [id number], [id number] ####Finishing Supervisor [employer] Sheets: UNA ARCE ([id number])[facility] [place] (SB[facility])[address] [place] [address] [place] STOMATOCYTES IN BLOOD BY LIGHT MICROSCOPY Moderate Abnormal (none) [facility] Comment on above: Performed By: #### L [id number], [id number] ####Finishing Supervisor [employer] Sheets: UNA ARCE ([id number])[facility] [place] (SB[facility])[address] [place] [address] [place] TARGET CELLS IN BLOOD BY LIGHT MICROSCOPY Slight Abnormal (none) [facility] Comment on above: Performed By: #### L [id number], [id number] ####Finishing Supervisor [employer] Sheets: UNA ARCE ([phone])[facility] [place] (SB[facility]AB)[address] [place] [address] [place] UNCLASSIFIED CELLS TOTAL PER COUNTED LEUKOCYTES BY MANUAL COUNT Normal [facility] Comment on above: Performed By: #### L [id number], [id number] ####Finishing Supervisor [employer] Sheets: UNA ARCE ([id number])[facility] (SBHLAB)[address] VARIANT LYMPHOCYTES TOTAL PER COUNTED LEUKOCYTES BY MANUAL COUNT Normal [facility] Comment on above: Performed By: #### L [id number], [id number] ####Finishing Supervisor Plastic Sheets: UNA ARCE ([phone])[facility] ([facility])[address] Magnesium [Mass/Vol]on 04-17 Interpretation and review of laboratory results Normal [facility] No Panel Informationon 04-17 [facility] Basophils Manual 3 [facility] Eosin[facility] Manual 2 High 0 - 1 [facility] Interpretation and review of laboratory results Abnormal [facility] Lymphocytes Manual 11 [facility] Monocytes Manual 7 [facility] Neutrophils Manual 77 [facility] Nursing Noteon 04-17-2025 Nursing Note Report given to Flor MYERS at [facility]. All belongings sent with patient, including eyewear. HL removed, site WNL. Normal [facility] Progress Noteon 04-17-2025 Progress Note Normal [facility] Progress Note Normal [facility] [id number] 04-16-2025 [id number] Tasked weekend TTC t o follow for possible dc over the weekend. agronomy manager to follow and assist as needed. Normal [facility] [id number] Complete in HEN S for [facility] per TCC request [facility] [phone] Normal [facility] CBC W Auto Differential pane l (Bld)Ordered By: Dayan Hernanedz on 04-16-2025 Erythrocyte distribution width (RBC) [Ratio] 25.7 % High 11.5 - 15.0 % [facility] Hematocrit (Bld) [Volume fraction] 28.4 % Low 40.0 - 52.0 % [facility] Hemoglobin (Bld) [Mass/Vol] 8 g/dL Low 13.0 - 18.0 g/dL [facility] Interpretation and review of laboratory results Abnormal [facility] MCH (RBC) [Entitic mass] 23.7 pg Low 26. 0 - 34.0 pg [facility] MCHC (RBC) [Mass/Vol] 28.2 % Low 30.5 - 36.0 % [facility] MCV (RBC) [Entitic vol] 84.3 fL 77.0 - 99.0 fL [facility] Platelet mean volume (Bld) [Entitic vol] 9.1 fL 9.0 - 12.7 fL [facility] Platelets (Bld) [#/Vol] 405 10*3/uL 140 - 440 10*3/uL [facility] RBC (Bld) [#/Vol] 3.37 10*6/uL Low 4.40 - 5.9 0 10*6/uL [facility] WBC (Bld) [#/Vol] 13.1 10*3/uL High 3.6 - 10.7 10*3/uL [facility] CBC WITH AUTO DIFFERENTIALon 04-16-2025 Erythrocyte distribution width (RBC) [Ratio] 25.7 % High 11.5-15.[address] [facility] Comment on above: Performed By: #### L [id number], [id number] ####Finishing Supervisor Plastic Sheets: UNA [phone])[facility] ([facility])[address] [place] [address] Hematocrit (Bld) [Volume fraction] 28.4 % Low 40.0-52.0 [facility] Comment on above: Performed By: #### L [id number], [id number] ####Finishing Supervisor Plastic Sheets: UNA ARCE ([phone])[facility] ([facility])[address] [place] [address] Hemoglobin (Bld) [Mass/Vol] 8.0 g/dL Low 13.0-18.0 [facility] Comment on above: Performed By: #### L [id number], [id number] ####Finishing Supervisor Plastic Sheets: UNA ARCE ([phone])[facility] ([facility])[address] MCH (RBC) [Entitic mass] 23.7 pg Low 26.0-34.0 [facility] Comment on above: Performed By: #### L [id number], [id number] ####Finishing Supervisor Plastic Sheets: UNA ARCE ([phone])[facility] (SBHLAB)[address] MCHC 28.2 % Low 30.5-36.0 [facility] Comment on above: Performed By: #### L [id number], [id number] ####Finishing Supervisor [employer]astic Sheets: UNA STAUFFERMELANIE ([phone])[facility] ([facility])[address] [place] [address] MCV (RBC) [Entitic vol] 84.3 fL Normal 77.0-99.0 [facility] Comment on above: Performed By: #### L [id number], [id number] ####Finishing Supervisor Plastic Sheets: UNA ARCE ([phone])[facility] (SB[facility])[address] Platelet mean volume (Bld) [Entitic vol] 9.1 fL Normal 9.0-12.7 [facility] Comment on above: Performed By: #### L [id number], [id number] ####Finishing Supervisor Plastic Sheets: UNA ARCE ([id number])[facility] ([facility])[address] Platelets (Bld) [#/Vol] 405 10*3/uL Normal 140-440 [facility] Comment on above: Performed By: #### L [id number], [id number] ####Finishing Supervisor Plastic Sheets: UNA STAUFFERMELANIE ([id number])[facility] ([facility])[address] RBC (Bld) [#/Vol] 3.37 10*6/uL Low 4.40-5.90 [facility] Comment on above: Performed By: #### L [id number], [id number] ####Finishing Supervisor Plastic Sheets: UNA ARCE ([id number])[facility] [place] ([facility])[address] WBC (Bld) [#/Vol] 13.1 10*3/uL High 3.6-10.7 [facility] Comment on above: Performed By: #### L [id number], [id number] ####Finishing Supervisor Plastic Sheets: UNA ARCE ([phone])[facility] (SB[facility])[address] COMPREHENSIVE METABOLIC PANE Anant 04-16-2025 Albumin [Mass/Vol] 2.2 g/dL Low 3.4-4.8 [facility] Comment on above: Performed By: #### L AB103, LAB17 ####Finishing Supervisor Plastic Sheets: UNA ARCE ([phone])[facility] [place] ([facility])[address] ALP [Catalytic activity/Vol] 55 U/L Normal 40-150 [facility] Comment on above: Performed By: #### L AB103, LAB17 ####Finishing Supervisor Plastic Sheets: UNA ARCE ([phone])[facility] [place] ([facility])[address] ALT [Catalytic activity/Vol] 6 U/L Normal <40 [facility] Comment on above: Performed By: #### L AB103, LAB17 ####Finishing Supervisor Plastic Sheets: UNA ARCE ([id number])[facility] [place] ([facility])[address] Anion gap [Moles/Vol] 10 mmol/L Normal 3-13 [facility] Comment on above: Performed By: #### L AB103, LAB17 ####Finishing Supervisor Plastic Sheets: UNA ARCE ([phone])[facility] (SBHLAB)[address] [place] [address] [place] AST [Catalytic activity/Vol] 23 U/L Normal <[address] [facility] Comment on above: Performed By: #### L AB103, LAB17 ####Finishing Supervisor Plastic Sheets: UNA ARCE ([phone])[facility] [place] ([facility])[address] Bilirubin [Mass/Vol] 0.5 mg/dL Normal <1.2 [facility] Comment on above: Performed By: #### L AB103, LAB17 ####Finishing Supervisor Plastic Sheets: UNA ARCE ([phone])[facility] [place] ([facility])[address] Calcium [Mass/Vol] 8.2 mg/dL Low 8.8-10.0 [facility] Comment on above: Performed By: #### L AB103, LAB17 ####Finishing Supervisor Plastic Sheets: UNA ARCE ([phone])[facility] [place] ([facility])[address] [place] [address] [place] Chloride [Moles/Vol] 87 mmol/L Low 98-107 [facility] Comment on above: Performed By: #### L AB103, LAB17 ####Finishing Supervisor Plastic Sheets: UNA ARCE ([phone])[facility] [place] ([facility])[address] [place] [address] [place] CO2 [Moles/Vol] 43 mmol/L High 23-31 [facility] Comment on above: Performed By: #### L AB103, LAB17 ####Finishing Supervisor Plastic Sheets: UNA ARCE ([phone])[facility] [place] ([facility])[address] [place] [address] [place] Creatinine [Mass/Vol] 1.81 mg/dL High 0.72-1.25 [facility] Comment on above: Performed By: #### L AB103, LAB17 ####Finishing Supervisor Plastic Sheets: UNA ARCE ([phone])[facility] [place] ([facility])[address] [place] [address] [place] GLOMERULAR FILTRATION RATE ML/MIN/1.73 SQ M.PREDICTED 35.3 mL/min/1.73m*2 Low >60.0 [facility] Comment on above: Result Comment: Calc ulation based on the Chronic Kidney Disease Epidemiology Collaboration (CKD-EPI) equation refit without adjustment for race Performed By: #### L AB103, LAB17 ####Finishing Supervisor Plastic Sheets: UNA ARCE ([phone])[facility] ([facility])[address] Glucose [Mass/Vol] 114 mg/dL Normal 82-115 [facility] Comment on above: Performed By: #### L AB103, LAB17 ####Finishing Supervisor Plastic Sheets: UNA ARCE ([phone])[facility] ([facility])[address] Potassium [Moles/Vol] 3.6 mmol/L Normal 3.5-5.1 [facility] Comment on above: Result Comment: [facility] potassium values may be up to 0.5 mmol/L lower than serum values. Performed By: #### L AB103, LAB17 ####Finishing Supervisor Plastic Sheets: UNA ARCE ([phone])[facility] ([facility])[address] Protein [Mass/Vol] 6.0 g/dL Low 6.4-8.3 [facility] Comment on above: Performed By: #### L AB103, LAB17 ####Finishing Supervisor Plastic Sheets: UNA ARCE ([phone])[facility] ([facility])[address] [place] [address] [place] Sodium [Moles/Vol] 140 mmol/L Normal 136-145 [facility] Comment on above: Performed By: #### L AB103, LAB17 ####Finishing Supervisor Plastic Sheets: UNA ARCE ([id number])[facility] ([facility])[address] Urea nitrogen [Mass/Vol] 46 mg/dL High 9-23 [facility] Comment on above: Performed By: #### L AB103, LAB17 ####Finishing Supervisor Plastic Sheets: UNA ARCE ([phone])[facility] (SBHLAB)[address] [place] [address] Comprehensive metabolic 1998 panelon 04-16-2025 Albumin [Mass/Vol] 2.2 g/dL Low 3.4 - 4.8 g/dL [facility] ALP [Catalytic activity/Vol] 55 U/L 40 - 150 U/L [facility] ALT [Catalytic activity/Vol] 6 U/L NINF - 40 U/L [facility] Anion gap [Moles/Vol] 10 mmol/L 3 - 13 mmol/L [facility] AST [Catalytic activity/Vol] 23 U/L NINF - 34 U/L [facility] Bilirubin [Mass/Vol] 0.5 mg/dL NINF - 1.2 mg/dL [facility] Calcium [Mass/Vol] 8.2 mg/dL Low 8.8 - 10. 0 mg/dL [facility] Chloride [Moles/Vol] 87 mmol/L Low 98 - 10 7 mmol/L [facility] CO2 [Moles/Vol] 43 mmol/L High 23 - 31 mmol/L [facility] Creatinine [Mass/Vol] 1.81 mg/dL High 0.72 - 1.25 mg/dL [facility] GFR/1.73 sq M.predicted (S/P/Bld) [Vol rate/Area] 35.3 mL/min Low - PINF [facility] Glucose [Mass/Vol] 114 mg/dL 82 - 115 mg/dL [facility] Interpretation and review of laboratory results Abnormal [facility] Potassium [Moles/Vol] 3.6 mmol/L 3.5 - 5.1 mmol/L [facility] Protein [Mass/Vol] 6 g/dL Low 6.4 - 8.3 g/dL [facility] Sodium [Moles/Vol] 140 mmol/L 136 - 145 mmol/L [facility] Urea nitrogen [Mass/Vol] 46 mg/dL High 9 - 23 mg/d L [facility] Laboratory - Chemistry and C hemistry - challengeon 04-16-2025 Magnesium [Mass/Vol] 1.8 mg/dL 1.6 - 2 .6 mg/dL [facility] Laboratory - Hematology and Cell countson 04-16-2025 Anisocytosis Ql (Bld) Moderate Abnormal (none) [facility] Basophils (Bld) [#/Vol] 0.1 10*3/uL 0.0 - 0.2 10*3/uL [facility] Basophils/100 WBC (Bld) 1 % 0 - 2 % [facility] cells LM Ql (Bld) Slight Abnormal (none) [facility] Eosinophils (Bld) [#/Vol] 0.5 10*3/uL 0.0 - 0.5 10*3/uL [facility] Eosinophils/100 WBC (Bld) 4 % 0 - 6 % [facility] Hypochromia Ql (Bld) Slight Abnormal (none) [facility] Lymphocytes (Bld) [#/Vol] 1.6 10*3/uL 1.0 - 4.3 10*3/uL [facility] Lymphocytes/100 WBC (Bld) 12 % Low 15 - 45 % [facility] Monocytes (Bld) [#/Vol] 0.9 10*3/uL 0.0 - 0.9 10*3/uL [facility] Monocytes/100 WBC (Bld) 7 % 5 - 13 % [facility] Neutrophils (Bld) [#/Vol] 9.8 10*3/uL High 1.8 - 7.5 10*3/uL [facility] Poikilocytosis LM Ql (Bld) Slight Abnormal (none) [facility] RBC morphology finding Nom (Bld) abnormal [facility] Segmented neutrophils/100 WBC (Bld) 75 % 38 - 82 % [facility] Variant lymphocytes (Bld) [#/Vol] 0.3 10*3/uL High NINF - 0.0 10*3/uL [facility] Variant lymphocytes/100 WBC (Bld) 2 % High NINF - 0 % [facility] MAGNESIUMon 04-16-2025 Magnesium [Mass/Vol] 1.8 mg/dL Normal 1.6-2.6 [facility] Comment on above: Result Comment: YARELI [place] COMMENTS:Higher values can be expected in females during menses. Performed By: #### L AB103, LAB17 ####Finishing Supervisor Plastic Sheets: UNA ARCE ([phone])[facility] ([facility])[address] [place] [address] MANUAL DIFFERENTIAL (CELLAVI BANDAR)on 04-16-2025 ANISOCYTOSIS PRESENCE IN BLOOD BY LIGHT MICROSCOPY Moderate Abnormal (none) [facility] Comment on above: Performed By: #### L [id number], [id number] ####Finishing Supervisor Plastic Sheets: UNA ARCE ([phone])[facility] [place] ([facility])[address] [place] [address] [place] BAND NEUTROPHILS TOTAL PER COUNTED LEUKOCYTES BY MANUAL COUNT Normal [facility] Comment on above: Performed By: #### L [id number], [id number] ####Finishing Supervisor Plastic Sheets: UNA STAUFFERMELANIE ([phone])[facility] [place] ([facility])[address] [place] [address] [place] BASOPHILS (10*3/UL) IN BLOOD-CELLAVISION 0.1 10*3/uL Normal 0.0-0.[address] [facility] Comment on above: Performed By: #### L [id number], [id number] ####Finishing Supervisor Plastic Sheets: UNA ARCE ([id number])[facility] [place] ([facility])[address] [place] [address] [place] BASOPHILS TOTAL PER COUNTED LEUKOCYTES BY MANUAL COUNT 1 Normal [facility] Comment on above: Performed By: #### L [id number], [id number] ####Finishing Supervisor Plastic Sheets: UNA ARCE ([phone])[facility] [place] ([facility])[address] [place] [address] [place] BASOPHILS/100 LEUKOCYTES IN BLOOD-CELLAVISION 1 % Normal 0-2 [facility] Comment on above: Performed By: #### L [id number], [id number] ####Finishing Supervisor Plastic Sheets: UNA ARCE ([phone])[facility] [place] ([facility])[address] [place] [address] [place] BLASTS TOTAL PER COUNTED LEUKOCYTES BY MANUAL COUNT Normal [facility] Comment on above: Performed By: #### L [id number], [id number] ####Finishing Supervisor Plastic Sheets: UNA ARCE ([id number])[facility] [place] ([facility])[address] [place] [address] [place] MEENA CELLS PRESENCE IN BLOOD BY LIGHT MICROSCOPY Slight Abnormal (none) [facility] Comment on above: Performed By: #### L [id number], [id number] ####Finishing Supervisor Plastic Sheets: UNA ARCE ([phone])[facility] [place] ([facility])[address] [place] [address] [place] EOSINOPHILS (10*3/UL) IN BLOOD-CELLAVISION 0.5 10*3/uL Normal 0.0-0.[address] [facility] Comment on above: Performed By: #### L [id number], [id number] ####Finishing Supervisor Plastic Sheets: UNA ARCE ([id number])[facility] [place] ([facility])[address] [place] [address] [place] EOSINOPHILS TOTAL PER COUNTED LEUKOCYTES BY MANUAL COUNT 4 High 0-[address] [facility] Comment on above: Performed By: #### L [id number], [id number] ####Finishing Supervisor Plastic Sheets: UNA ARCE ([phone])[facility] [place] ([facility])[address] [place] [address] [place] EOSINOPHILS/100 LEUKOCYTES IN BLOOD-CELLAVISION 4 % Normal 0-[address] [facility] Comment on above: Performed By: #### L [id number], [id number] ####Finishing Supervisor Plastic Sheets: UNA ARCE ([phone])[facility] [place] ([facility])[address] [place] [address] [place] HYPOCHROMIA (PRESENCE) IN BLOOD BY LIGHT MICROSCOPY Slight Abnormal (none) [facility] Comment on above: Performed By: #### L [id number], [id number] ####Finishing Supervisor Plastic Sheets: UNA ARCE ([phone])[facility] [place] ([facility])[address] [place] [address] [place] LYMPHOCYTE VARIANT/100 LEUKOCYTES IN BLOOD- CELLAVISION 2 % High <=[address] [facility] Comment on above: Performed By: #### L [id number], [id number] ####Finishing Supervisor Plastic Sheets: UNA ARCE ([id number])[facility] [place] ([facility])[address] [place] [address] [place] LYMPHOCYTES (10*3/UL) IN BLOOD-CELLAVISION 1.6 10*3/uL Normal 1.0-4.3 [facility] Comment on above: Performed By: #### L [id number], [id number] ####Finishing Supervisor Plastic Sheets: UNA ARCE ([id number])[facility] [place] ([facility]AB)[address] LYMPHOCYTES TOTAL PER COUNTED LEUKOCYTES BY MANUAL COUNT 12 Normal [facility] Comment on above: Performed By: #### L [id number], [id number] ####Finishing Supervisor Plastic Sheets: UNA MOHRCER ([phone])[facility] [place] ([facility])[address] [place] [address] [place] LYMPHOCYTES/100 LEUKOCYTES IN BLOOD-CELLAVISION 12 % Low 15-45 [facility] Comment on above: Performed By: #### L [id number], [id number] ####Finishing Supervisor Plastic Sheets: UNA ARCE ([phone])[facility] [place] (SBHLAB)[address] METAMYELOCYTES TOTAL PER COUNTED LEUKOCYTES BY MANUAL COUNT [facility] Comment on above: Performed By: #### L [id number], [id number] ####Finishing Supervisor Plastic Sheets: UNA ARCE ([phone])[facility] [place] ([facility])[address] [place] [address] [place] MONOCYTES (10*3/UL) IN BLOOD-CELLAVISION 0.9 10*3/uL Normal 0.0-0.9 [facility] Comment on above: Performed By: #### L [id number], [id number] ####Finishing Supervisor Plastic Sheets: UNA ARCE ([phone])[facility] [place] ([facility])[address] [place] [address] [place] MONOCYTES TOTAL PER COUNTED LEUKOCYTES BY MANUAL COUNT 7 Normal [facility] Comment on above: Performed By: #### L [id number], [id number] ####Finishing Supervisor Plastic Sheets: UNA ARCE ([id number])[facility] [place] (SB[facility]AB)[address] [place] [address] [place] MONOCYTES/100 LEUKOCYTES IN BLOOD-LUCIANA 7 % Normal 5-13 [facility] Comment on above: Performed By: #### L [id number], [id number] ####Finishing Supervisor Plastic Sheets: UNA ARCE ([id number])[facility] [place] (SB[facility])[address] [place] [address] [place] MYELOCYTES COUNTED BY MANUAL COUNT Normal [facility] Comment on above: Performed By: #### L [id number], [id number] ####Finishing Supervisor Plastic Sheets: UNA ARCE ([phone])[facility] [place] (SBHL[facility])[address] [place] [address] [place] NEUTROPHILS TOTAL PER COUNTED LEUKOCYTES BY MANUAL COUNT 77 Normal [facility] Comment on above: Performed By: #### L [id number], [id number] ####Finishing Supervisor Plastic Sheets: UNA ARCE ([phone])[facility] [place] ([facility])[address] [place] [address] [place] POIKILOCYTOSIS (PRESENCE) IN BLOOD BY LIGHT MICROSCOPY Slight Abnormal (none) [facility] Comment on above: Performed By: #### L [id number], [id number] ####Finishing Supervisor Plastic Sheets: UNA ARCE ([phone])[facility] [place] ([facility])[address] [place] [address] [place] PROMYELOCYTES TOTAL PER COUNTED LEUKOCYTES BY MANUAL COUNT Normal [facility] Comment on above: Performed By: #### L [id number], [id number] ####Finishing Supervisor Plastic Sheets: UNA ARCE ([phone])[facility] [place] ([facility])[address] [place] [address] [place] RBC MORPHOLOGY IN BLOOD abnormal Normal [facility] Comment on above: Performed By: #### L [id number], [id number] ####Finishing Supervisor Plastic Sheets: UNA ARCE ([id number])[facility] [place] ([facility])[address] [place] [address] [place] SEGMENTED NEUTROPHILS (10*3/UL) IN BLOOD-CELLAVISION 9.8 10*3/uL High 1.8-7.[address] [facility] Comment on above: Performed By: #### L [id number], [id number] ####Finishing Supervisor Plastic Sheets: UNA ARCE ([phone])[facility] [place] ([facility])[address] SEGMENTED NEUTROPHILS/100 LEUKOCYTES-CE 75 % Normal 38-82 [facility] Comment on above: Performed By: #### L [id number], [id number] ####Finishing Supervisor Plastic Sheets: UNA ARCE ([phone])[facility] [place] ([facility])[address] UNCLASSIFIED CELLS TOTAL PER COUNTED LEUKOCYTES BY MANUAL COUNT Normal [facility] Comment on above: Performed By: #### L [id number], [id number] ####Finishing Supervisor Plastic Sheets: UNA ARCE ([phone])[facility] ([facility])[address] VARIANT LYMPHOCYTES (10*3/UL) IN BLOOD-CELLAVISION 0.3 10*3/uL High <=0.[address] [facility] Comment on above: Performed By: #### L [id number], [id number] ####Finishing Supervisor Plastic Sheets: UNA ARCE ([phone])[facility] [place] ([facility])[address] VARIANT LYMPHOCYTES TOTAL PER COUNTED LEUKOCYTES BY MANUAL COUNT 2 Normal [facility] Comment on above: Performed By: #### L [id number], [id number] ####Finishing Supervisor Plastic Sheets: UNA ARCE ([phone])[facility] [place] ([facility])[address] [place] [address] [place] Magnesium [Mass/Vol]on 04-16 Interpretation and review of laboratory results Normal [facility] No Panel Informationon 04-16 [facility] Atypical Lymphocytes Manual 2 [facility] Basophils Manual 1 [facility] Eosin[facility] Manual 4 High 0 - 1 [facility] Interpretation and review of laboratory results Abnormal [facility] Lymphocytes Manual 12 [facility] Monocytes Manual 7 [facility]th Neutrophils Manual 77 [facility] Nursing Noteon 04-16-2025 Nursing Note Normal [facility] Progress Noteon 04-16-2025 Progress Note Normal [facility] Progress [facility] Normal [facility] Progress Note Normal [facility] Progress Note Normal [facility] Progress [facility] [id number] 04-15-[id number] [facility] Bacteria identified Anaer cx Nom (Unsp spec)on 04-15-2025 Interpretation and review of laboratory results Normal [facility] CBC W Auto Differential pane l (Bld)on 04-15-2025 Erythrocyte distribution width (RBC) [Ratio] 25.3 % High 11.5 - 15.0 % [facility] Hematocrit (Bld) [Volume fraction] 28 % Low 40.0 - 52.0 % [facility] Hemoglobin (Bld) [Mass/Vol] 7.8 g/dL Low 13.0 - 18.0 g/dL [facility] Interpretation and review of laboratory results Abnormal [facility] MCH (RBC) [Entitic mass] 23.4 pg Low 26. 0 - 34.0 pg [facility] MCHC (RBC) [Mass/Vol] 27.9 % Low 30.5 - 36.0 % [facility] MCV (RBC) [Entitic vol] 84.1 fL 77.0 - 99.0 fL [facility] Platelet mean volume (Bld) [Entitic vol] 9.1 fL 9.0 - 12.7 fL [facility] Platelets (Bld) [#/Vol] 332 10*3/uL 140 - 440 10*3/uL [facility] RBC (Bld) [#/Vol] 3.33 10*6/uL Low 4.40 - 5.9 0 10*6/uL [facility] WBC (Bld) [#/Vol] 12.4 10*3/uL High 3.6 - 10.7 10*3/uL [facility] CBC WITH AUTO DIFFERENTIALon 04-15-2025 Erythrocyte distribution width (RBC) [Ratio] 25.3 % High 11.5-15.0 [facility] Comment on above: Performed By: #### L [id number], [id number] ####Finishing Supervisor [employer] Sheets: UNA STAUFFERMELANIE ([phone])[facility] ([facility])[address] Hematocrit (Bld) [Volume fraction] 28.0 % Low 40.0-52.0 [facility] Comment on above: Performed By: #### L [id number], [id number] ####Finishing Supervisor Plastic Sheets: UNA ARCE ([phone])[facility] (SBHLAB)[address] Hemoglobin (Bld) [Mass/Vol] 7.8 g/dL Low 13.0-18.0 [facility] Comment on above: Performed By: #### L [id number], [id number] ####Finishing Supervisor [employer]astic Sheets: UNA STAUFFERMELANIE ([phone])[facility]Angel [facility] (SBHLAB)[address] MCH (RBC) [Entitic mass] 23.4 pg Low 26.0-34.[address] [facility] Comment on above: Performed By: #### L [id number], [id number] ####Finishing Supervisor [employer]astic Sheets: UNA ARCE ([id number])[facility] (SBHLAB)[address] MCHC 27.9 % Low 30.5-36.[address] [facility] Comment on above: Performed By: #### L [id number], [id number] ####Finishing Supervisor Plastic Sheets: UNA ARCE ([phone])[facility] (SBHLAB)[address] MCV (RBC) [Entitic vol] 84.1 fL Normal 77.0-99.0 [facility] Comment on above: Performed By: #### L [id number], [id number] ####Finishing Supervisor [employer] Sheets: UNA ARCE ([id number])[facility] [place] (SBHLAB)[address] Platelet mean volume (Bld) [Entitic vol] 9.1 fL Normal 9.0-12.7 [facility] Comment on above: Performed By: #### L [id number], [id number] ####Finishing Supervisor Plastic Sheets: UNA ARCE ([phone])[facility]ITALA [facility] (SBHLAB)[address] Platelets (Bld) [#/Vol] 332 10*3/uL Normal 140-440 [facility] Comment on above: Performed By: #### L [id number], [id number] ####Finishing Supervisor [employer]astic Sheets: UNA ARCE ([phone])[facility] [place] (SBHLAB)[address] RBC (Bld) [#/Vol] 3.33 10*6/uL Low 4.40-5.90 [facility] Comment on above: Performed By: #### L [id number], [id number] ####Finishing Supervisor Plastic Sheets: UNA ARCE ([phone])[facility]A [facility] (SBHLAB)[address] WBC (Bld) [#/Vol] 12.4 10*3/uL High 3.6-10.7 [facility] Comment on above: Performed By: #### L [id number], [id number] ####Finishing Supervisor Plastic Sheets: UNA ARCE ([phone])[facility] (SBHLAB)[address] COMPREHENSIVE METABOLIC PANE Anant 04-15-2025 Albumin [Mass/Vol] 2.1 g/dL Low 3.4-4.8 [facility] Comment on above: Performed By: #### L [id number], [id number] ####Finishing Supervisor Plastic Sheets: UNA ARCE ([id number])[facility] ([facility])[address] ALP [Catalytic activity/Vol] 48 U/L Normal 40-150 [facility] Comment on above: Performed By: #### L [id number], [id number] ####Finishing Supervisor Plastic Sheets: UNA [phone])[facility] (SBHLAB)[address] ALT [Catalytic activity/Vol] U/L Normal <40 [facility] Comment on above: Performed By: #### L [id number], [id number] ####Finishing Supervisor Plastic Sheets: UNA ARCE ([phone])[facility] (SBHLAB)[address] Anion gap [Moles/Vol] 9 mmol/L Normal 3-13 [facility] Comment on above: Performed By: #### L [id number], [id number] ####Finishing Supervisor Plastic Sheets: UNA ARCE ([phone])[facility] [place] (SBHLAB)[address] AST [Catalytic activity/Vol] 21 U/L Normal <34 [facility] Comment on above: Performed By: #### L [id number], [id number] ####Finishing Supervisor Plastic Sheets: UNA ARCE ([phone])[facility]A [place] (SBHLAB)[address] Bilirubin [Mass/Vol] 0.6 mg/dL Normal <1.2 [facility] Comment on above: Performed By: #### L [id number], [id number] ####Finishing Supervisor Plastic Sheets: UNA ARCE ([id number])[facility]A [place] (SBHLAB)[address] Calcium [Mass/Vol] 8.2 mg/dL Low 8.8-10.0 [facility] Comment on above: Performed By: #### L [id number], [id number] ####Finishing Supervisor Plastic Sheets: UNA ARCE ([phone])[facility]A [place] (SBHLAB)[address] [place] [address] [place] Chloride [Moles/Vol] 90 mmol/L Low 98-107 [facility] Comment on above: Performed By: #### L [id number], [id number] ####Finishing Supervisor Plastic Sheets: UNA ARCE ([id number])[facility] [place] (SBHLAB)[address] CO2 [Moles/Vol] 40 mmol/L High 23-31 [facility] Comment on above: Performed By: #### L [id number], [id number] ####Finishing Supervisor Plastic Sheets: UNA ARCE ([phone])[facility]ITALAngel [facility] (SBHLAB)[address] Creatinine [Mass/Vol] 1.58 mg/dL High 0.72-1.25 [facility] Comment on above: Performed By: #### L [id number], [id number] ####Finishing Supervisor Plastic Sheets: UNA ARCE ([phone])[facility] (SBHLAB)[address] GLOMERULAR FILTRATION RATE ML/MIN/1.73 SQ M.PREDICTED 41.6 mL/min/1.73m*2 Low >60.0 [facility] Comment on above: Result Comment: Calc ulation based on the Chronic Kidney Disease Epidemiology Collaboration (CKD-EPI) equation refit without adjustment for race Performed By: #### L [id number], [id number] ####Finishing Supervisor Plastic Sheets: UNA ARCE ([phone])[facility]Angel [facility] (SBHLAB)[address] Glucose [Mass/Vol] 130 mg/dL High 82-115 [facility] Comment on above: Performed By: #### L [id number], [id number] ####Finishing Supervisor Plastic Sheets: UNA ARCE ([phone])[facility] (SBHLAB)[address] Potassium [Moles/Vol] 3.5 mmol/L Normal 3.5-5.1 [facility] Comment on above: Result Comment: [facility] potassium values may be up to 0.5 mmol/L lower than serum values. Performed By: #### L [id number], [id number] ####Finishing Supervisor Plastic Sheets: UNA ARCE ([phone])[facility] (SBHLAB)[address] Protein [Mass/Vol] 5.7 g/dL Low 6.4-8.3 [facility] Comment on above: Performed By: #### L [id number], [id number] ####Finishing Supervisor Plastic Sheets: UNA BERMUDEZSILASMELANIE ([phone])[facility] (SBHLAB)[address] Sodium [Moles/Vol] 139 mmol/L Normal 136-145 [facility] Comment on above: Performed By: #### L [id number], [id number] ####Finishing Supervisor Plastic Sheets: UNA BERMUDEZPEDRO ([id number])[facility] (SBHLAB)[address] Urea nitrogen [Mass/Vol] 43 mg/dL High 9-23 [facility] Comment on above: Performed By: #### L AB17, [id number] ####Finishing Supervisor Plastic Sheets: UNAANJEL BERMUDEZPEDRO ([phone])[facility] (SBHLAB)[address] Comprehensive metabolic 1998 panelon 04-15-2025 Albumin [Mass/Vol] 2.1 g/dL Low 3.4 - 4.8 g/dL [facility] ALP [Catalytic activity/Vol] 48 U/L 40 - 150 U/L [facility] ALT [Catalytic activity/Vol] U/L [facility] U/L [facility] Anion gap [Moles/Vol] 9 mmol/L 3 - 13 mmol/L [facility] AST [Catalytic activity/Vol] 21 U/L [facility] - 34 U/L [facility] Bilirubin [Mass/Vol] 0.6 mg/dL NINF - 1.2 mg/dL [facility] Calcium [Mass/Vol] 8.2 mg/dL Low 8.8 - 10. 0 mg/dL [facility] Chloride [Moles/Vol] 90 mmol/L Low 98 - 10 7 mmol/L [facility] CO2 [Moles/Vol] 40 mmol/L High 23 - 31 mmol/L [facility] Creatinine [Mass/Vol] 1.58 mg/dL High 0.72 - 1.25 mg/dL [facility] GFR/1.73 sq M.predicted (S/P/Bld) [Vol rate/Area] 41.6 mL/min Low - PINF [facility] Glucose [Mass/Vol] 130 mg/dL High 82 - 115 mg/dL [facility] Interpretation and review of laboratory results Abnormal [facility] Potassium [Moles/Vol] 3.5 mmol/L 3.5 - 5.1 mmol/L [facility] Protein [Mass/Vol] 5.7 g/dL Low 6.4 - 8.3 g/dL [facility] Sodium [Moles/Vol] 139 mmol/L 136 - 145 mmol/L [facility] Urea nitrogen [Mass/Vol] 43 mg/dL High 9 - 23 mg/d L [facility] Laboratory - Chemistry and C hemistry - challengeon 04-15-2025 Magnesium [Mass/Vol] 1.8 mg/dL 1.6 - 2 .6 mg/dL [facility] - Hematology and Cell countson 04-15-2025 Anisocytosis Ql (Bld) Moderate Abnormal (none) [facility] Basophils (Bld) [#/Vol] 0.2 10*3/uL 0.0 - 0.2 10*3/uL [facility] Basophils/100 WBC (Bld) 2 % 0 - 2 % [facility] Eosinophils (Bld) [#/Vol] 0.1 10*3/uL 0.0 - 0.5 10*3/uL [facility] Eosinophils/100 WBC (Bld) 1 % 0 - 6 % [facility] Hypochromia Ql (Bld) Moderate Abnormal (none) [facility] Lymphocytes (Bld) [#/Vol] 1.2 10*3/uL 1.0 - 4.3 10*3/uL [facility] Lymphocytes/100 WBC (Bld) 10 % Low 15 - 45 % [facility] Monocytes (Bld) [#/Vol] 1.6 10*3/uL High 0.0 - 0.9 10*3/uL [facility] Monocytes/100 WBC (Bld) 13 % 5 - 13 % [facility] Neutrophils (Bld) [#/Vol] 9.3 10*3/uL High 1.8 - 7.5 10*3/uL [facility] Poikilocytosis LM Ql (Bld) Slight Abnormal (none) [facility] RBC morphology finding Nom (Bld) abnormal [facility] Segmented neutrophils/100 WBC (Bld) 75 % 38 - 82 % [facility] Stomatocytes LM Ql (Bld) Slight Abnormal (none) [facility] - Microbiology an d Antimicrobial susceptibilityon 04-15-2025 Bacteria identified Anaer cx Nom (Unsp spec) No growth at 5 days [facility] Lower GI hemoglobin spec 1 I A Ql (Stl)Ordered By: Haroldo Alvarez on 04-15-2025 Fecal occult blood Negative Negative [facility] Interpretation and review of laboratory results Normal [facility] MAGNESIUMon 04-15-2025 Magnesium [Mass/Vol] 1.8 mg/dL Normal 1.6-2.6 [facility] Comment on above: Result Comment: YARELI R COMMENTS:Higher values can be expected in females during menses. Performed By: #### L [id number], [id number] ####Finishing Supervisor Plastic Sheets: UNA ARCE ([phone])[facility]ITALAngel [facility] (SB[facility])[address] [place] [address] MANUAL DIFFERENTIAL (CELLAVI BANDAR)on 04-15-2025 ANISOCYTOSIS PRESENCE IN BLOOD BY LIGHT MICROSCOPY Moderate Abnormal (none) [facility] Comment on above: Performed By: #### L [id number], [id number] ####Finishing Supervisor Plastic Sheets: UNA ARCE ([phone])[facility] (SBAB)[address] BAND NEUTROPHILS TOTAL PER COUNTED LEUKOCYTES BY MANUAL COUNT Normal [facility] Comment on above: Performed By: #### L [id number], [id number] ####Finishing Supervisor Plastic Sheets: UNA ARCE ([id number])[facility]Angel [facility] (SBHLAB)[address] BASOPHILS (10*3/UL) IN BLOOD-CELLAVISION 0.2 10*3/uL Normal 0.0-0.2 [facility] Comment on above: Performed By: #### L [id number], [id number] ####Finishing Supervisor Plastic Sheets: UNA ARCE ([phone])[facility] (SBHLAB)[address] BASOPHILS TOTAL PER COUNTED LEUKOCYTES BY MANUAL COUNT 2 Normal [facility] Comment on above: Performed By: #### L [id number], [id number] ####Finishing Supervisor Plastic Sheets: UNA ARCE ([phone])[facility]ITALA [place] (SBHLAB)[address] [place] [address] [place] BASOPHILS/100 LEUKOCYTES IN BLOOD-CELLAVISION 2 % Normal 0-2 [facility] Comment on above: Performed By: #### L [id number], [id number] ####Finishing Supervisor Plastic Sheets: UNA ARCE ([phone])[facility] [place] (SBHLAB)[address] [place] [address] [place] BLASTS TOTAL PER COUNTED LEUKOCYTES BY MANUAL COUNT Normal [facility] Comment on above: Performed By: #### L [id number], [id number] ####Finishing Supervisor Plastic Sheets: UNA STAUFFERMELANIE ([phone])[facility] [place] (SBHLAB)[address] [place] [address] [place] EOSINOPHILS (10*3/UL) IN BLOOD-CELLAVISION 0.1 10*3/uL Normal 0.0-0.[address] [facility] Comment on above: Performed By: #### L [id number], [id number] ####Finishing Supervisor Plastic Sheets: UNA ARCE ([phone])[facility] [place] (SBHLAB)[address] [place] [address] [place] EOSINOPHILS TOTAL PER COUNTED LEUKOCYTES BY MANUAL COUNT 1 Normal 0-[address] [facility] Comment on above: Performed By: #### L [id number], [id number] ####Finishing Supervisor Plastic Sheets: UNA ARCE ([phone])[facility] [place] (SBHLAB)[address] [place] [address] [place] EOSINOPHILS/100 LEUKOCYTES IN BLOOD-CELLAVISION 1 % Normal 0-[address] [facility] Comment on above: Performed By: #### L [id number], [id number] ####Finishing Supervisor Plastic Sheets: UNA ARCE ([id number])[facility] [place] (SBHLAB)[address] [place] [address] [place] HYPOCHROMIA (PRESENCE) IN BLOOD BY LIGHT MICROSCOPY Moderate Abnormal (none) [facility] Comment on above: Performed By: #### L [id number], [id number] ####Finishing Supervisor Plastic Sheets: UNA ARCE ([id number])[facility] [place] (SBHLAB)[address] [place] [address] [place] LYMPHOCYTES (10*3/UL) IN BLOOD-CELLAVISION 1.2 10*3/uL Normal 1.0-4.[address] [facility] Comment on above: Performed By: #### L [id number], [id number] ####Finishing Supervisor Plastic Sheets: UNA ARCE ([phone])[facility] [place] (SBHLAB)[address] LYMPHOCYTES TOTAL PER COUNTED LEUKOCYTES BY MANUAL COUNT 10 Normal [facility] Comment on above: Performed By: #### L [id number], [id number] ####Finishing Supervisor Plastic Sheets: UNA ARCE ([phone])[facility] [place] (SBHLAB)[address] [place] [address] [place] LYMPHOCYTES/100 LEUKOCYTES IN BLOOD-CELLAVISION 10 % Low 15-[address] [facility] Comment on above: Performed By: #### L [id number], [id number] ####Finishing Supervisor Plastic Sheets: UNA ARCE ([phone])[facility] [place] (SBHLAB)[address] [place] [address] [place] METAMYELOCYTES TOTAL PER COUNTED LEUKOCYTES BY MANUAL COUNT Normal [facility] Comment on above: Performed By: #### L [id number], [id number] ####Finishing Supervisor Plastic Sheets: UNA ARCE ([id number])[facility] [place] (SBHLAB)[address] [place] [address] [place] MONOCYTES (10*3/UL) IN BLOOD-CELLAVISION 1.6 10*3/uL High 0.0-0.[address] [facility] Comment on above: Performed By: #### L [id number], [id number] ####Finishing Supervisor Plastic Sheets: UNA ARCE ([phone])[facility] [place] (SBHLAB)[address] [place] [address] [place] MONOCYTES TOTAL PER COUNTED LEUKOCYTES BY MANUAL COUNT 13 Normal [facility] Comment on above: Performed By: #### L [id number], [id number] ####Finishing Supervisor Plastic Sheets: UNA STAUFFERMELANIE ([phone])[facility] [place] (SBHLAB)[address] [place] [address] [place] MONOCYTES/100 LEUKOCYTES IN BLOOD-LUCIANA 13 % Normal - [facility] Comment on above: Performed By: #### L [id number], [id number] ####Finishing Supervisor Plastic Sheets: UNA STAUFFERMELANIE ([phone])[facility] [place] (SBHLAB)[address] [place] [address] [place] MYELOCYTES COUNTED BY MANUAL COUNT [facility] Comment on above: Performed By: #### L [id number], [id number] ####Finishing Supervisor Plastic Sheets: UNA STAUFFERMELANIE ([phone])[facility] [place] (SBHLAB)[address] [place] [address] [place] NEUTROPHILS TOTAL PER COUNTED LEUKOCYTES BY MANUAL COUNT 77 Normal [facility] Comment on above: Performed By: #### L [id number], [id number] ####Finishing Supervisor Plastic Sheets: UNA ARCE ([phone])[facility] [place] (SBHLAB)[address] [place] [address] [place] POIKILOCYTOSIS (PRESENCE) IN BLOOD BY LIGHT MICROSCOPY Slight Abnormal (none) [facility] Comment on above: Performed By: #### L [id number], [id number] ####Finishing Supervisor Plastic Sheets: UNA ARCE ([id number])[facility] [place] (SBHLAB)[address] [place] [address] [place] PROMYELOCYTES TOTAL PER COUNTED LEUKOCYTES BY MANUAL COUNT [facility] Comment on above: Performed By: #### L [id number], [id number] ####Finishing Supervisor Plastic Sheets: UNA ARCE ([phone])[facility] [place] (SBHLAB)[address] [place] [address] [place] RBC MORPHOLOGY IN BLOOD abnormal Normal [facility] Comment on above: Performed By: #### L [id number], [id number] ####Finishing Supervisor Plastic Sheets: UNA ARCE ([phone])[facility] (SBHLAB)[address] SEGMENTED NEUTROPHILS (10*3/UL) IN BLOOD-CELLAVISION 9.3 10*3/uL High 1.8-7.5 [facility] Comment on above: Performed By: #### L [id number], [id number] ####Finishing Supervisor Plastic Sheets: UNA ARCE ([id number])[facility]A [facility] (SBHLAB)[address] SEGMENTED NEUTROPHILS/100 LEUKOCYTES-CE 75 % Normal 38-82 [facility] Comment on above: Performed By: #### L [id number], [id number] ####Finishing Supervisor Plastic Sheets: UNA ARCE ([phone])[facility] (SBHLAB)[address] STOMATOCYTES IN BLOOD BY LIGHT MICROSCOPY Slight Abnormal (none) [facility] Comment on above: Performed By: #### L [id number], [id number] ####Finishing Supervisor [employer]astic Sheets: UNA ARCE ([phone])[facility] (SBHLAB)[address] UNCLASSIFIED CELLS TOTAL PER COUNTED LEUKOCYTES BY MANUAL COUNT Normal [facility] Comment on above: Performed By: #### L [id number], [id number] ####Finishing Supervisor Plastic Sheets: UNA ARCE ([phone])[facility] ([facility])[address] VARIANT LYMPHOCYTES TOTAL PER COUNTED LEUKOCYTES BY MANUAL COUNT Normal [facility] Comment on above: Performed By: #### L [id number], [id number] ####Finishing Supervisor Plastic Sheets: UNA ARCE ([id number])[facility] (SBHLAB)[address] [place] [address] [place] Magnesium [Mass/Vol]on 04-15 Interpretation and review of laboratory results Normal [facility] No Panel Informationon 04-15 Basophils Manual 2 [facility] Eosinophils Manual 1 0 - 1 [facility] Interpretation and review of laboratory results Abnormal [facility] Lymphocytes Manual 10 [facility] Monocytes Manual 13 [facility] Neutrophils Manual 77 [facility] OCCULT BLOOD, STOOLon 2024 OCCULT BLOOD, STOOL FECAL OCCULT, STOOL Reference Negative Negative ORDER COMMENTS: Methodology: Immunoassay Normal [facility] Comment on above: Performed By: #### L [id number] ####Finishing Supervisor Plastic Sheets: UNA ARCE ([phone])[facility] [place] [address] Progress Noteon 04-15-2025 Progress Note Normal [facility] Note Normal [facility] Progress Note Normal [facility] Progress Note Normal [facility] XR Chest Single viewon 04-15 [facility] Radiology Study observation (narrative) Lynette Balderrama alth [id number] 04-14-[id number] [facility] Bacteria identified Anaer cx Nom (Unsp spec)on 04-14-2025 Interpretation and review of laboratory results Normal [facility] CBC W Auto Differential pane l (Bld)on 04-14-2025 Erythrocyte distribution width (RBC) [Ratio] 25.4 % High 11.5 - 15.0 % [facility] Hematocrit (Bld) [Volume fraction] 27.3 % Low 40.0 - 52.0 % [facility] Hemoglobin (Bld) [Mass/Vol] 7.6 g/dL Low 13.0 - 18.0 g/dL [facility] MCH (RBC) [Entitic mass] 23.2 pg Low 26. 0 - 34.0 pg [facility] MCHC (RBC) [Mass/Vol] 27.8 % Low 30.5 - 36.0 % [facility] MCV (RBC) [Entitic vol] 83.5 fL 77.0 - 99.0 fL [facility] Platelet mean volume (Bld) [Entitic vol] 8.9 fL Low 9.0 - 12.7 fL [facility] Platelets (Bld) [#/Vol] 293 10*3/uL 140 - 440 10*3/uL [facility] RBC (Bld) [#/Vol] 3.27 10*6/uL Low 4.40 - 5.9 0 10*6/uL [facility] WBC (Bld) [#/Vol] 12.3 10*3/uL High 3.6 - 10.7 10*3/uL [facility] CBC WITH AUTO DIFFERENTIALon 04-14-2025 Erythrocyte distribution width (RBC) [Ratio] 25.4 % High 11.5-15.0 [facility] Comment on above: Performed By: #### L [id number], [id number] ####Finishing Supervisor [employer]astic Sheets: UNA ARCE ([phone])[facility] (SBAB)[address] [place] [address] Hematocrit (Bld) [Volume fraction] 27.3 % Low 40.0-52.0 [facility] Comment on above: Performed By: #### L [id number], [id number] ####Finishing Supervisor [employer]astic Sheets: UNA ARCE ([phone])[facility] (SBHLAB)[address] [place] [address] Hemoglobin (Bld) [Mass/Vol] 7.6 g/dL Low 13.0-18.0 [facility] Comment on above: Performed By: #### L [id number], [id number] ####Finishing Supervisor [employer]astic Sheets: UNA ARCE ([phone])[facility] (SBHLAB)[address] [place] [address] MCH (RBC) [Entitic mass] 23.2 pg Low 26.0-34.0 [facility] Comment on above: Performed By: #### L [id number], [id number] ####Finishing Supervisor [employer]astic Sheets: UNA ARCE ([phone])[facility] (SBHLAB)[address] [place] [address] MCHC 27.8 % Low 30.5-36.0 [facility] Comment on above: Performed By: #### L [id number], [id number] ####Finishing Supervisor [employer]astic Sheets: UNA ARCE ([phone])[facility] (SBAB)[address] MCV (RBC) [Entitic vol] 83.5 fL Normal 77.0-99.0 [facility] Comment on above: Performed By: #### L [id number], [id number] ####Finishing Supervisor [employer]astic Sheets: UNA ARCE ([id number])[facility] (SBHLAB)[address] Platelet mean volume (Bld) [Entitic vol] 8.9 fL Low 9.0-12.7 [facility] Comment on above: Performed By: #### L [id number], [id number] ####Finishing Supervisor [employer]astic Sheets: UNA ARCE ([phone])[facility] (SBHLAB)[address] Platelets (Bld) [#/Vol] 293 10*3/uL Normal 140-440 [facility] Comment on above: Performed By: #### L [id number], [id number] ####Finishing Supervisor [employer]astic Sheets: UNA ARCE ([phone])[facility] (SBHLAB)[address] RBC (Bld) [#/Vol] 3.27 10*6/uL Low 4.40-5.90 [facility] Comment on above: Performed By: #### L [id number], [id number] ####Finishing Supervisor [employer]astic Sheets: UNA ARCE ([phone])[facility] (SBHLAB)[address] WBC (Bld) [#/Vol] 12.3 10*3/uL High 3.6-10.7 [facility] Comment on above: Performed By: #### L [id number], [id number] ####Finishing Supervisor [employer] Sheets: UNA ARCE ([phone])[facility] (SBHLAB)[address] COMPREHENSIVE METABOLIC PANE Anant 04-14-2025 Albumin [Mass/Vol] 2.1 g/dL Low 3.4-4.[address] [facility] Comment on above: Performed By: #### L [id number], [id number] ####Finishing Supervisor [employer]: UNA ARCE ([phone])[facility] (SB[facility])[address] ALP [Catalytic activity/Vol] 47 U/L Normal 40-150 [facility] Comment on above: Performed By: #### L [id number], [id number] ####Finishing Supervisor [employer] Sheets: UNA ARCE ([phone])[facility] [place] (SBHLAB)[address] ALT [Catalytic activity/Vol] U/L Normal <40 [facility] Comment on above: Performed By: #### L [id number], [id number] ####Finishing Supervisor Plastic Sheets: UNA ARCE ([id number])[facility] ([facility])[address] Anion gap [Moles/Vol] 9 mmol/L Normal 3-13 [facility] Comment on above: Performed By: #### L [id number], [id number] ####Finishing Supervisor Plastic Sheets: UNA ARCE ([id number])[facility] AST [Catalytic activity/Vol] 19 U/L Normal <34 [facility] Comment on above: Performed By: #### L [id number], [id number] ####Finishing Supervisor Plastic Sheets: UNA ARCE ([id number])[facility] [place] (SBHLAB)[address] Bilirubin [Mass/Vol] 0.6 mg/dL Normal <1.2 [facility] Comment on above: Performed By: #### L [id number], [id number] ####Finishing Supervisor [employer]astic Sheets: UNA ARCE ([id number])[facility] Calcium [Mass/Vol] 8.1 mg/dL Low 8.8-10.[address] [facility] Comment on above: Performed By: #### L [id number], [id number] ####Finishing Supervisor Plastic Sheets: UNA ARCE ([id number])[facility] (SBHLAB)[address] Chloride [Moles/Vol] 92 mmol/L Low 98-107 [facility] Comment on above: Performed By: #### L [id number], [id number] ####Finishing Supervisor Plastic Sheets: UNA ARCE ([id number])[facility] [place] (SB[facility])[address] CO2 [Moles/Vol] 39 mmol/L High 23-31 [facility] Comment on above: Performed By: #### L [id number], [id number] ####Finishing Supervisor Plastic Sheets: UNA ARCE ([id number])[facility] [place] (SBHLAB)[address] Creatinine [Mass/Vol] 1.43 mg/dL High 0.72-1.25 [facility] Comment on above: Performed By: #### L AB103, LAB17 ####Finishing Supervisor Plastic Sheets: UNA ARCE ([id number])[facility] [place] ([facility])[address] GLOMERULAR FILTRATION RATE ML/MIN/1.73 SQ M.PREDICTED 46.8 mL/min/1.73m*2 Low >60.0 [facility] Comment on above: Result Comment: Calc ulation based on the Chronic Kidney Disease Epidemiology Collaboration (CKD-EPI) equation refit without adjustment for race Performed By: #### L AB103, LAB17 ####Finishing Supervisor Plastic Sheets: UNA ARCE ([id number])[facility] [place] (SBHLAB)[address] [place] [address] [place] Glucose [Mass/Vol] 97 mg/dL Normal 82-115 [facility] Comment on above: Performed By: #### L [id number], LAB17 ####Finishing Supervisor Plastic Sheets: UNA ARCE ([id number])[facility] [place] (SB[facility])[address] [place] [address] [place] Potassium [Moles/Vol] 3.8 mmol/L Normal 3.5-5.1 [facility] Comment on above: Result Comment: [facility] potassium values may be up to 0.5 mmol/L lower than serum values. Performed By: #### L AB103, LAB17 ####Finishing Supervisor Plastic Sheets: UAN ARCE ([phone])[facility] ([facility] Protein [Mass/Vol] 5.7 g/dL Low 6.4-8.3 [facility] Comment on above: Performed By: #### L AB103, LAB17 ####Finishing Supervisor Plastic Sheets: UNA ARCE ([id number])[facility] ([facility] Sodium [Moles/Vol] 140 mmol/L Normal 136-145 [facility] Comment on above: Performed By: #### L AB103, LAB17 ####Finishing Supervisor Plastic Sheets: UNA ARCE ([id number])[facility] Urea nitrogen [Mass/Vol] 39 mg/dL High 9-23 [facility] Comment on above: Performed By: #### L AB103, LAB17 ####Finishing Supervisor Plastic Sheets: UNA STAUFFERMELANIE ([id number])[facility] (SBHLAB)[address] Comprehensive metabolic 1998 panelon 04-14-2025 Albumin [Mass/Vol] 2.1 g/dL Low 3.4 - 4.8 g/dL [facility] ALP [Catalytic activity/Vol] 47 U/L 40 - 150 U/L [facility] ALT [Catalytic activity/Vol] U/L NINF - 40 U/L [facility] Anion gap [Moles/Vol] 9 mmol/L 3 - 13 mmol/L [facility] AST [Catalytic activity/Vol] 19 U/L NINF - 34 U/L [facility] Bilirubin [Mass/Vol] 0.6 mg/dL NINF - 1.2 mg/dL [facility] Calcium [Mass/Vol] 8.1 mg/dL Low 8.8 - 10. 0 mg/dL [facility] Chloride [Moles/Vol] 92 mmol/L Low 98 - 10 7 mmol/L [facility] CO2 [Moles/Vol] 39 mmol/L High 23 - 31 mmol/L [facility] Creatinine [Mass/Vol] 1.43 mg/dL High 0.72 - 1.25 mg/dL [facility] GFR/1.73 sq M.predicted (S/P/Bld) [Vol rate/Area] 46.8 mL/min Low - PINF [facility] Glucose [Mass/Vol] 97 mg/dL 82 - 115 mg/dL [facility] Interpretation and review of laboratory results Abnormal [facility] Potassium [Moles/Vol] 3.8 mmol/L 3.5 - 5.1 mmol/L [facility] Protein [Mass/Vol] 5.7 g/dL Low 6.4 - 8.3 g/dL [facility] Sodium [Moles/Vol] 140 mmol/L 136 - 145 mmol/L [facility] Urea nitrogen [Mass/Vol] 39 mg/dL High 9 - 23 mg/d L [facility] Consulton 04-14-2025 Consult Normal [facility] ECG 12-LEADon 04-14-2025 ECG 12-LEAD IMPRESSION: Sinus arrhythmia LEFT ANTERIOR FASCICULAR BLOCK MULTIPLE ATRIAL PREMATURE COMPLEXES Compared to ECG 04/05/2025 15:59:31 No significant changes Electronically Signed On 04-14-2025 07:12:58 EDT by Ronal Maurice Normal [facility] Laboratory - Chemistry and C hemistry - challengeon 04-14-2025 Magnesium [Mass/Vol] 1.9 mg/dL 1.6 - 2 .6 mg/dL [facility] Laboratory - Hematology and Cell countson 04-14-2025 Anisocytosis Ql (Bld) Slight Abnormal (none) [facility] Basophils (Bld) [#/Vol] 0.1 10*3/uL 0.0 - 0.2 10*3/uL [facility] Basophils/100 WBC (Bld) 1 % 0 - 2 % [facility] Eosinophils (Bld) [#/Vol] 0.4 10*3/uL 0.0 - 0.5 10*3/uL [facility] Eosinophils/100 WBC (Bld) 3 % 0 - 6 % [facility] Hypochromia Ql (Bld) Moderate Abnormal (none) [facility] Lymphocytes (Bld) [#/Vol] 0.9 10*3/uL Low 1.0 - 4.3 10*3/uL [facility] Lymphocytes/100 WBC (Bld) 7 % Low 15 - 45 % [facility] Monocytes (Bld) [#/Vol] 1.8 10*3/uL High 0.0 - 0.9 10*3/uL [facility] Monocytes/100 WBC (Bld) 15 % High 5 - 13 % [facility] Neutrophils (Bld) [#/Vol] 9.1 10*3/uL High 1.8 - 7.5 10*3/uL [facility] Poikilocytosis LM Ql (Bld) Slight Abnormal (none) [facility] RBC morphology finding Nom (Bld) abnormal [facility] Segmented neutrophils/100 WBC (Bld) 74 % 38 - 82 % [facility] Stomatocytes LM Ql (Bld) Moderate Abnormal (none) [facility] Variant lymphocytes (Bld) [#/Vol] 0.1 10*3/uL High NINF - 0.0 10*3/uL [facility] Variant lymphocytes/100 WBC (Bld) 1 % High NINF - 0 % [facility] - Microbiology an d Antimicrobial susceptibilityon 04-14-2025 Bacteria identified Anaer cx Nom (Unsp spec) No growth at 5 days [facility] MAGNESIUMon 04-14-2025 Magnesium [Mass/Vol] 1.9 mg/dL Normal 1.6-2.6 [facility] Comment on above: Result Comment: YARELI [place] COMMENTS:Higher values can be expected in females during menses. Performed By: #### L AB103, LAB17 ####Finishing Supervisor Plastic Sheets: UNA ARCE ([id number])[facility] (SBAB)[address] MANUAL DIFFERENTIAL (CELLAVI BANDAR)on 04-14-2025 ANISOCYTOSIS PRESENCE IN BLOOD BY LIGHT MICROSCOPY Slight Abnormal (none) [facility] Comment on above: Performed By: #### L [id number], [id number] ####Finishing Supervisor Plastic Sheets: UNA ARCE ([id number])[facility] [place] (SBHLAB)[address] [place] [address] [place] BAND NEUTROPHILS TOTAL PER COUNTED LEUKOCYTES BY MANUAL COUNT [facility] Comment on above: Performed By: #### L [id number], [id number] ####Finishing Supervisor Plastic Sheets: UNA ARCE ([id number])[facility] [place] (SB[facility])[address] [place] [address] [place] BASOPHILS (10*3/UL) IN BLOOD-CELLAVISION 0.1 10*3/uL Normal 0.0-0.[address] [facility] Comment on above: Performed By: #### L [id number], [id number] ####Finishing Supervisor Plastic Sheets: UNA ARCE ([id number])[facility] [place] (SB[facility])[address] [place] [address] [place] BASOPHILS TOTAL PER COUNTED LEUKOCYTES BY MANUAL COUNT [address] [facility] Comment on above: Performed By: #### L [id number], [id number] ####Finishing Supervisor Plastic Sheets: UNA ARCE ([id number])[facility] [place] (SB[facility]AB)[address] [place] [address] [place] BASOPHILS/100 LEUKOCYTES IN BLOOD-CELLAVISION 1 % Normal 0-2 [facility] Comment on above: Performed By: #### L [id number], [id number] ####Finishing Supervisor Plastic Sheets: UNA ARCE ([id number])[facility] [place] (SB[facility]AB)[address] [place] [address] [place] BLASTS TOTAL PER COUNTED LEUKOCYTES BY MANUAL COUNT [facility] Comment on above: Performed By: #### L [id number], [id number] ####Finishing Supervisor Plastic Sheets: UNA ARCE ([id number])[facility] [place] (SB[facility])[address] [place] [address] [place] EOSINOPHILS (10*3/UL) IN BLOOD-CELLAVISION 0.4 10*3/uL Normal 0.0-0.[address] [facility] Comment on above: Performed By: #### L [id number], [id number] ####Finishing Supervisor Plastic Sheets: UNA ARCE ([id number])[facility] [place] (SBHLAB)[address] [place] [address] [place] EOSINOPHILS TOTAL PER COUNTED LEUKOCYTES BY MANUAL COUNT 3 High 0-[address] [facility] Comment on above: Performed By: #### L [id number], [id number] ####Finishing Supervisor Plastic Sheets: UNA ARCE ([id number])[facility] [place] (SBHLAB)[address] [place] [address] [place] EOSINOPHILS/100 LEUKOCYTES IN BLOOD-CELLAVISION 3 % Normal 0-[address] [facility] Comment on above: Performed By: #### L [id number], [id number] ####Finishing Supervisor Plastic Sheets: UNA ARCE ([id number])[facility] [place] (SBHLAB)[address] [place] [address] [place] HYPOCHROMIA (PRESENCE) IN BLOOD BY LIGHT MICROSCOPY Moderate Abnormal (none) [facility] Comment on above: Performed By: #### L [id number], [id number] ####Finishing Supervisor Plastic Sheets: UNA ARCE ([id number])[facility] [place] (SB[facility])[address] [place] [address] [place] LYMPHOCYTE VARIANT/100 LEUKOCYTES IN BLOOD- CELLAVISION 1 % High <=[address] [facility] Comment on above: Performed By: #### L [id number], [id number] ####Finishing Supervisor Plastic Sheets: UNA ARCE ([id number])[facility] [place] (SB[facility])[address] [place] [address] [place] LYMPHOCYTES (10*3/UL) IN BLOOD-CELLAVISION 0.9 10*3/uL Low 1.0-4.[address] [facility] Comment on above: Performed By: #### L [id number], [id number] ####Finishing Supervisor Plastic Sheets: UNA ARCE ([id number])[facility] [place] (SB[facility])[address] [place] [address] [place] LYMPHOCYTES TOTAL PER COUNTED LEUKOCYTES BY MANUAL COUNT [address] [facility] Comment on above: Performed By: #### L [id number], [id number] ####Finishing Supervisor Plastic Sheets: UNA ARCE ([id number])[facility] [place] (SBHLAB)[address] [place] [address] [place] LYMPHOCYTES/100 LEUKOCYTES IN BLOOD-CELLAVISION 7 % Low 15-45 [facility] Comment on above: Performed By: #### L [id number], [id number] ####Finishing Supervisor Plastic Sheets: UNA ARCE ([id number])[facility] [place] (SBHLAB)[address] [place] [address] [place] METAMYELOCYTES TOTAL PER COUNTED LEUKOCYTES BY MANUAL COUNT Normal [facility] Comment on above: Performed By: #### L [id number], [id number] ####Finishing Supervisor Plastic Sheets: UNA ARCE ([id number])[facility] [place] (SB[facility])[address] [place] [address] [place] MONOCYTES (10*3/UL) IN BLOOD-CELLAVISION 1.8 10*3/uL High 0.0-0.9 [facility] Comment on above: Performed By: #### L [id number], [id number] ####Finishing Supervisor Plastic Sheets: UNA ARCE ([id number])[facility] [place] (SB[facility])[address] [place] [address] [place] MONOCYTES TOTAL PER COUNTED LEUKOCYTES BY MANUAL COUNT 15 Normal [facility] Comment on above: Performed By: #### L [id number], [id number] ####Finishing Supervisor Plastic Sheets: UNA ARCE ([id number])[facility] [place] (SBHLAB)[address] [place] [address] [place] MONOCYTES/100 LEUKOCYTES IN BLOOD-LUCIANA 15 % High 5-13 [facility] Comment on above: Performed By: #### L [id number], [id number] ####Finishing Supervisor Plastic Sheets: UNA ARCE ([id number])[facility] [place] (SB[facility])[address] [place] [address] [place] MYELOCYTES COUNTED BY MANUAL COUNT [facility] Comment on above: Performed By: #### L [id number], [id number] ####Finishing Supervisor Plastic Sheets: UNA ARCE ([id number])[facility] [place] (SB[facility]AB)[address] [place] [address] [place] NEUTROPHILS TOTAL PER COUNTED LEUKOCYTES BY MANUAL COUNT 75 Normal [facility] Comment on above: Performed By: #### L [id number], [id number] ####Finishing Supervisor Plastic Sheets: UNA ARCE ([id number])[facility] [place] (SB[facility])[address] POIKILOCYTOSIS (PRESENCE) IN BLOOD BY LIGHT MICROSCOPY Slight Abnormal (none) [facility] Comment on above: Performed By: #### L [id number], [id number] ####Finishing Supervisor Plastic Sheets: UNA MOHRCER ([id number])[facility] [place] ([facility])[address] PROMYELOCYTES TOTAL PER COUNTED LEUKOCYTES BY MANUAL COUNT Normal [facility] Comment on above: Performed By: #### L [id number], [id number] ####Finishing Supervisor Plastic Sheets: UNA ARCE ([id number])[facility] [place] (SB[facility])[address] [place] [address] [place] RBC MORPHOLOGY IN BLOOD abnormal Normal [facility] Comment on above: Performed By: #### L [id number], [id number] ####Finishing Supervisor Plastic Sheets: UNA ARCE ([id number])[facility] [place] (SB[facility])[address] [place] [address] [place] SEGMENTED NEUTROPHILS (10*3/UL) IN BLOOD-CELLAVISION 9.1 10*3/uL High 1.8-7.5 [facility] Comment on above: Performed By: #### L [id number], [id number] ####Finishing Supervisor Plastic Sheets: UNA ARCE ([id number])[facility] [place] ([facility])[address] [place] [address] [place] SEGMENTED NEUTROPHILS/100 LEUKOCYTES-CE 74 % Normal 38-82 [facility] Comment on above: Performed By: #### L [id number], [id number] ####Finishing Supervisor Plastic Sheets: UNA ARCE ([id number])[facility] [place] (SBHLAB)[address] [place] [address] [place] STOMATOCYTES IN BLOOD BY LIGHT MICROSCOPY Moderate Abnormal (none) [facility] Comment on above: Performed By: #### L [id number], [id number] ####Finishing Supervisor Plastic Sheets: UNA ARCE ([id number])[facility] (SBHLAB)[address] [place] [address] [place] UNCLASSIFIED CELLS TOTAL PER COUNTED LEUKOCYTES BY MANUAL COUNT Normal [facility] Comment on above: Performed By: #### L [id number], [id number] ####Finishing Supervisor Plastic Sheets: UNA ARCE ([id number])[facility] (SBHLAB)[address] VARIANT LYMPHOCYTES (10*3/UL) IN BLOOD-CELLAVISION 0.1 10*3/uL High <=0.0 [facility] Comment on above: Performed By: #### L [id number], [id number] ####Finishing Supervisor Plastic Sheets: UNA ARCE ([id number])[facility] (SBHLAB)[address] VARIANT LYMPHOCYTES TOTAL PER COUNTED LEUKOCYTES BY MANUAL COUNT 1 Normal [facility] Comment on above: Performed By: #### L [id number], [id number] ####Finishing Supervisor Plastic Sheets: UNA ARCE ([id number])[facility] (SBHLAB)[address] [place] [address] [place] Magnesium [Mass/Vol]on 04-14 Interpretation and review of laboratory results Normal [facility] No Panel Informationon 04-14 [facility] Radiology Study observation (narrative) [facility] ander Case Report [facility] Case Screening Location [facility], [address] [place] [address]; CLIA: [id number]; Joint Commission: [id number]; CAP: [id number] [facility] Comment j3sazBDrMDUiuURbZPAc M IobidHoJDQxjMBcB9Fwgc hgGWfvTO6vGI6lbTeijIE hkOUlOCPkMnWdo7zea166 kQLll2mnWRMLJLzyTZLLX Cu0jKqdQ94js5R2CnphI1 3paLWxOJN8PDFcLTOdqUG cPKZgXRC8YSOgtNNzL2rt NFNnFT3tbxsfBBxrXFyvD NOkkRB2TJEglEEoZ5JmMP LxSRjrJEAibee0NyXeWo3 vdGVyeTcyMFxwYXJkXHBs YWluXGZzMjAgUGxlYXNlI CYmQOWbq2EnF3whfNQnGD NbIJKym6IgYTQ2eA9mz3q 4NLLnRSLojIQmXZxHFiE9 UQMiDZSorHLsTli8LLF6c INtTPIgSRp9cF1sEJjkh4 8lr4XnTxlpUIZ2 [facility] v7lviVQkODZoqKFiKrCm M LMvTVBqj4ouZOAuzQMsVg EwMzNcZnRuYmpcdWMxXGR sBrIyc9leo869yXPis7si FQWkLkX6cLIxGKQsM04lC CNFU583KSOxQCnjj8qcu7 CdZLYmkPJqf8F3XPZMWRo gCFFCWTu8yEzoL52as0T3 LyyfK1zvYPLkCYZmW6IpM M4oHNQfTan3VTT1QUQ5ET PgOFQfX0MhOC7qMKFjwHN yJLp8s9cgzSuuIGPnXMC1 x1wzIGwessNzKY0wyk9uy Ww6q7egrpNhEHSlBGGuwV EEDBBpX3RvwBupKo4dsFi 2kHsbRhnwRJG0Mzc4JU0l we50zoz1uZitPHQmfjzwP eV9SIavWDZzwtfrJLd5YY tpNJGuvAJ0QYWrwFLgB2R jWVSjTQ0plwa6XER4OYgn SECgFsN6IDOkbSMxOAVea ZykBDlll877CXJ6CsOaDZ 0vC9Wyo5Y3sN3neTQdQFV klVPfYkBrNHNcff0ljQSc IWsxs5SaZRO1qiR3lATtx AFeWQMaBY08Zljqb6QqBa rbQPY8FJTygfGii5Wlq1b lYaOchkBeA6ifV5OdETOa GSOhOEPzDsEbvjTjl6Poq 7LtiXXpnYt0l7aeBBDdJO LzcJkws5iyIEF9OXOzQ1Y 2mZIyx5gvBRqdLHJzhHD6 ciW5ERIdgUFpP0MmnQ9hZ MAiAF5jfug3c6lpGNZ7QB klZTXuTyU6tcJ9KZDjpLS vVTBvtCgbDCdkl335JRT9 LzImRWNtk8RkR6TzxSnqL 30cbMshN47sWIMnmRuvyN 5biPsuzU8eXeEqHdOmJCz xbFxwbGFpblxmMVxmczE2 UKtdzjueBEHsHPjoZ0qcL vCdVFBpfYxwZTgah5MaZL AnEFGsLRReAQkjN0aftC2 gbmngGIroYBJqyWrrx5gn SnReqBP0ZO5xshOdOYVeh BjaetD8peRmmNqfhV8odM 5krFugpJ3wiNOskZK8pcg sIGluIHNpdHUgaHlicmlk dDkryJabjwxixZ8iJRY2f BYxBBX6ePWgSFXhNRVzPZ HslZ07vs6joSQghgSgB1B fE2EukAGalLjeCxuzuPEu nTHbXn2raJOiEC8qEEJiq NNpV3SbHX3nPEIwibztVF IgVGhlIHVzZSBvZiBvbmU tv9JrkC0aQJNnVPThFD68 stMrgqH2ePXlPKPojaYee GVzdHMgaXMgcmVndWxhdG BmDXYeMUMlABBvATt7sJC xv4DaO9jjmFIhjlBcN2Rp zOOsWTXWHI9lZMqkv9Umb WFvaFSfk9DlGEBgEKYcdY 9zILHpCM7jZTLyUVzaVZM rfiArnv5gvoInFSSbQETf Q9EtkbdvdBxollZiPSXcv p3xdmHiNHK3PZLkNTTscG vmiCJtvICpZMKqwsR0x2Y uQLPwq8YuK2MmnRLoOBNt oKRcOZP8q4UnlY3aVHtzy KTdEUNgTM4xgHCeEHNwOE NsZWFyZWQgYnkgdGhlIFV HFODid8SlBY7sSHPjvMaw YLPxhM9rt3TbUMMgj74xB EZEQSkuIFRoZSBGREEgaG FzIGRldGVybWluZWQgdGh qnFWpxAYfJWPjOIDxBZ6u JTYavdXfdXZnj5VflTQlw wMuh7QlbdAkNVDlJJF5Kg BccGFyXHBhciBBbGwgaW1 jjA5fd9UncD7lXAtkxfZo lNTcVu8lrVTqJW1qJWYxz mFmZmluIGVtYmVkZGVkIH Uxn6D6NU2nOYYupx6izpi zzMNxlP6pcXUxshQgTD7b ID1vW3W8gWQaDUPnkjAri 8jgNJr9aPRnRWJuoOTgeV JrOuikZOI9MFPpLMT6ohY oujMaSSLobPliiNB6pIUv NZYuVZBlLLYbJT21W2Tlm 1GyN5xuWM56FSPiWAQoFC JakyDmu2noZTPwr7ytOTS czGGsZ6FeZVNsyINyxoza HcTsIHL4YOAtENK7jYUqA XOwP2ZouROzeROcaN61PV 4xtNM1OI3rGXM5ABvtwA6 sOfVNmD09dw9fjTK2j9Qs TE6yD4RlOEJsb4Z6sqHfC IMvTF5giZJzZPTxGRHthN lkYXRlZCBvbiBkZWNhbGN qLekmJGR2yGZafUKyLcJG EJT2tPYlNAIxs6KdQBIlZ MYwfkXauxHbGZYoYFY5jT PzYCJncTDxt40lI5u4HN6 ukSxcQRDlgARkAXKio7Rk gBAzvPt6mRZmYnPrEPvfL GEgXEeajQa9jZD2DW2gJT RoQ3TxG3kxbBKiBMTaHRI ehIAbyq0pwGMwgF== [facility] q0rejAPnRDAtrEDZQRTy M CUyAY2yjKmyuLk8sDthRC KelpT4nHLkFHuvn0ygYYJ 5n6ghfoPYOijeUXRnFB6p TJtsWWKkFU3qSjFpFNWdL mYxXHBhcGVydzEyMjQwXH HthRCfzVE3MYKdOF2odok aGNdsNMupHEMiljO2SUPe oKIbC1AgURTrZB2ubizgN YO4SPCYQgzkSl9ebQJmtD ANCntcZjFcZmNoYXJzZXQ gOTPsv6ynmoVDzlhppYp5 XJm5RTLxPRDxrMGpx5D5X Qgxv3xjr5IhZ7Vuy7OuIS x5uM0WCjsuZ04ph5M3Ojo 4EXZwFWg8UCwaMLUjHCXq Qou2NOa9S1jsLFJnEMdrJ MClQOndnCQvMFq7RBqhh9 TuzLUuXYs2ILqoJNDmT9P iP4DjODafAlJaMBosJVOr JEIbEGaeCCXjC8GYSGCnI wT0LzT8IPPtKUy5WNkaNg EWRON4LNk6AxP8DMg4WLG zJL0iCQkbfVFlFJhzElrs EGecB542VVjfSGZyJ6SgV 3QgXFxzZyBcXGlkIDUxMD VfDGyqOEBzX6JSCELpBlH 8TfV0CLLoGSo8HHbgI5ZZ XAYjNKY7ARM3ArCzSsZ1T Nz3CMUBQl3fCNP3EXR1DC diZZL8BHVkSSwhvhydOYt 0IDIgXFxzcyAzIFxcZmwg PRooU05qoAOeGAHBKqpvi GFpblxlcGljTmVzdERvYz FkBPxbjCMtyHSkDN3KUTu 0cmNoXGNmMVxmczIwIEEg STIZfVW0knNcOYShsjv7x CatLszjdAY3UCExPMMsWP kcQHJkHEy6MULlwXhgQFS fn8EzG5X5WQKvTJcoq3sc DKScEOnxx4QaYLhBOWPPZ P1CHR6vcTP8DMtPHYZPI4 hUoTSbAZKhH8xvrLL3y8f trUIew8o5ZSicOBR7cBNa s0EgdDcwXmnrhOQ2DJthV zzwfU9imEXZMLHQIffADb dhdoQuQD3YPQWGEN4SwWW vGZFuV0bfgKF8e8hboNEp l3a8HOyjLGW2yUncxXIrz lxsdHJjaFxmczIwICBccH IglPJmvZudXiwbhWF1DMr yFpaaxE8osXHVOAESSkjE KiltnjEpCD5UGZAMEgIVY F94JCS0MJL7fWD5Lu25DM NhZNJxoUDfDIpfQ530o1G vgivha1xvbYIiHItaTmao pINbqiS7JMcXJHKZXPgKE iWcZL8mGThPQ1UWRhG5WV C2MBU3oQD5Bl88MTZeBLM igCEpGDikY835WVBzJCle JAu7ljTfZSJhJxDnHNUbg WwdGPXoL3EfbkYiLZpnyr 96UEZ7f4ijwBLfYEnqWjv lmNKehwE9OLcFPYOYSVhU OqMuKC0xYHvAQ2UGATcOQ cqoSTdgMqQ6N7nzjKsqPt nejhHwaBLmYaEAnY3qksK ysOudJljyiXO4EBtiCotn uB1agXHMVXUPMerZLcnes mIaXO8JGUHZMN3GmGEqZD BeBPhjiOP2b8noeOJcv0e 9JKdlMXA3rUwsgVGzrsnx kYWrxHuhprTaBB9kXGCir iANClxiXGNmMiBNYXRlcm vwmPPvHNYppKReRUO4FCC zHTQkQJUgDIAkrU7KewUn IGFuZCAxIENlbGwgQmxvY 7fluncaqFJhUH2NWVHqto ANClxmMlxmczIyXHBhciA OJvhsISGrBJMutKCRu1Lv IPIMIaf9RS9THPNsWPQss IEKNRJ0XJ8aRXzlAOUjM8 VyD7DisyG8j6ojbQcge2T bhSKkDI5ytYWjXF4CCBUg zgNtRGqiyMxlvI1zEZg4 [facility] Pathologist Interpretation Location [facility], [address] [place] [id number]; CLIA: [id number]; Joint Commission: [id number] [id number]; CAP: [id number] [facility] Pathology report final diagnosis Narrative p0wryWTzBKCqqWTyFUMxS EzhmqXqLVYtnHWnZ9Dwwk htYFtyOQ1dCQ6ljAhzgHI uaBEvHPPqNtVdx9ghq252 uPImm3moMEELTPvgTLHAL Dj7lYvvM74xi9R6ByinE1 jjPRG6HGrspeQhilw6MQL dgMO8YHl6CQNfgSXfexCv XpPvMCYytSLsxJF0ABHfR I3yjvzwUBxqKFpmIEEuhd E4BGVlhCGsM9VzAGVyTO7 gasstMJF3KEgxAKBzYEV6 VeQgXDFqy8Wanet0LvTzv GFyZFxwbGFpblxmczIwXG NmMSBBICAtIFBsZXVyYWw sM2S2dOB5GUOSxBptpNYi WTZyNZodOdc0vCEiDFO3o E0bt3j2CtkcMqMeKQUcmY SiGM5BAU5HKAzMOyRKPNJ DRUxMUyBJREVOVElGSUVE ZeahYDTuMkRZI7MHGvIyU 5YQCTVBMWESD7BBBzmyQU ChYZ3ftLDdoXY0qU3iPDA yZXNlbnQuIFxwYXJ9 [facility] [employer] CV EPIPHANY [facility] Atypical Lymphocytes Manual 1 [facility] Basophils Manual 1 [facility] Eosinophils Manual 3 High 0 - 1 [facility] Interpretation and review of laboratory results Abnormal [facility] Lymphocytes Manual 7 [facility] Monocytes Manual 15 [facility] Neutrophils Manual 75 [facility] No Panel InformationOrdered By: Marianna Francois on 04-14-2025 [facility] [employer] Work Phone: No Panel InformationOrdered By: Danyel Platt on 04-14-2025 Case Report [facility] [employer] Work Phone: Case Screening Location [facility], [address] [place] [id number]; CLIA: [id number]; Joint Commission: [id number] [id number]; CAP: [id number] [facility] [employer] Work Phone: Comment c7onoBSkMMAcyUAxMIRf M WpwvnIhLAQnpDDaG0Plzv bsJIeeSX0vIO0wmAofoGK jfJAlXHTbRtNti2apy569 oJCmu9zsFLCLPYfgIKGEH Fs3aQvmW96dc9W4BmemI0 0nyLCpOIM4WVUaMXMofLJ xQQGbAEN7OQKpcERsQ6gv XSCpHA1fjyfvJPcoFPxrN ECsyRW1RNXauRJdX4LoBK QjWBhiANIgbtv5QiKeBj8 vdGVyeTcyMFxwYXJkXHBs RTvwHAFjGlFyLV9skN1wv UoosS7mgLFpqIO5ivnbZO tsuUpyJ57ldTNmtDV1LIW ASyJarjKnV7JzhuB3mX2w biBoaWdobGlnaHQgbWVzb 9EyKPkaQOjxW5IxuIBsXT BCRVIgRVAgNCwgVFRGLTE oLJJVLYvxCN8jHUXYQdYq VVIcJU6sO8Z2wECwShYeV 5CnXzUalDvxuTazA6g3wq GhgE7boz93hsBlWCKfr8B hQUiklt1lxPPonE== [facility] Work Phone: Disclaimer m3qhaBLrUBEjrOQoWpKn M ZPeYEZyu4zlACAcaTLqKu EwMzNcZnRuYmpcdWMxXGR xEjJdl7skj863wNWma7wv HNHgLbV7kIQkZWImS19yJ QLFQ110KARdCOxva6cuw0 IlJCZqyMRak9D3DFTJDTr sINLRJOl2yInzX65cz2D6 XyhwH3lzLCYoGVXcG3RwT U1dMSKoXyf7DJB9VJH0EX XyPFAzG8InDK2oJQFhnKG uBXo9c2wizVzdCIVpQEQ6 z0ttZOxcnrIyIH4whq3hg Fg4p1zhvaHzOOFnJXQwnG RSSDMrM5OmiJonVe1npOa 4tHevSzvqTUL4Xup8UM1i pn65xcc7yCisVRKujabpH wJ4MLuvTJIpxgbhLYt6SM pjGFLcqAB8WXZecNIwJ6B lMXTxJN0ixve2JXQ5QGxf NCLwAuE6KGQozAZtFKBbl NfdIMksw950YRN2HpRlYG 4pH8Zxb2X8wF1uzTTkVOJ wyVOxYjZaROHhgk5xnKRf VZtwq5ZpHIY0ppP5aDAra ZJeCLHrWU07Pgnsj7CeRf erXEJ2PBTrvyKzt9Oyj9r wUePabwDxS0viI2TzLPGb LZWhMROaJySeupTae9Bfa 8MmvHSayIn4k9ghOBQaTP BpmSmot3hzBHG3OADiC6D 0lNIrk2qbMRimWJDzgSB7 urE4SPYtjFEkO0UmaM4tP YDoCS5xtaz1u8lyBUA7TG ooWCXuJrW0roM6DUChlWE oZYOfaPeeYUgsy886EMY3 EeRkICQnl1FkS9YokMcfV 30peVxlC77wBFHqyKtwgO 6xhMtbbO7fUiQiIsJqLIh xbFxwbGFpblxmMVxmczE2 DInfhquwVNBtIGsbT1kvW lBsXBWmtJdzKXwds6SdOW SzJNZdPCSnNBiyH2hwxP4 jkjceNJfxTDUzcOrhi0gs AaElgHH9VC6bskHbQFIlb RdwedU8eoWqwUzupW4mdY 8hcJukvQ2vgJZtsTG5bpe sIGluIHNpdHUgaHlicmlk tLhiqCuphwezfZ8pSZL3d KOiUTW9nIHdKTYxUWXzRE HboH29nz5fxMEwqpZqS5A mB4QmlJGtiDocEstywRTs gHCiNs0slXHrAU5sJCFnm LHvI8QbQT2aDYFtmwmzYV IgVGhlIHVzZSBvZiBvbmU wq1KrpP6kUMTzYCEtWL75 jrSqisX8eFNcCJBawlXbj GVzdHMgaXMgcmVndWxhdG WiIEFtJDBvKBMmCDc7lRB jp6LeB2rdgVKtnuLlT0Pj kLGkIVTSEJ8nMXsvs3Zir ZFkiDRhp2WzAGVyFQJabJ 6lQETkIY2cMUDyWBrxYNQ ibhMfxz4wugTpGYXyKULv U7SqkjqgdDhjakCdBZSdl p0oayGhXHU3BPGvONJepC tdcPVcnEVsCGMfddT0k8Y jTDXqm3YfY5JecSFiUCPb pUOvJCP4u4KznR8nOQndl OElWLPdQV8ivFRbYORhNJ NsZWFyZWQgYnkgdGhlIFV MAJEwm2RhRL5mXGQcyZzy ICGbvE5yr1DuHFXiw71gL EZEQSkuIFRoZSBGREEgaG FzIGRldGVybWluZWQgdGh soJJxmQQoPJOaCXYhMF5g ENNtcfEyfBWjq4AyuXJly uOfj3ClsqAtYZFkIAI2Px BccGFyXHBhciBBbGwgaW1 etD0yz0KarJ3nIAmktlEp mTYiQg9bsOPoME9iTPDca mFmZmluIGVtYmVkZGVkIH Iai7E5XK4iPHFsjv4mred jqUKqoK3koDHslhYgDT8e YR2cK0X0cHYwAPSzrhFdi 9alYVc6cHFrPDCskJBeqT WqYbqeLDS0RNSmYPT2pnY rkdRbHNMcpQrypSY0uDFi BFLiGGOfJXNqQC30T9Ygx 4WyW1zqAN15HPHdZJTmPH JvsgArv2aySMAkw4akFPU tmREpF2CrQZKmlJXivtwb JyJuGSM1CTRaFHQ5pVCyS SUcB0EgbZTctCPrqE55SG 7feQP8EK8pRWT4CWwagI0 lJsYHtU15at9taNC5f9Aw DG0qI1CfJETei8R5gsUwZ KSoNN9tlFNeBEPiNQDydJ lkYXRlZCBvbiBkZWNhbGN rVxycRZE8gDCywQYjRnPM LDQ7zDCoYJObm0XiTVAgC VZgfrGnnrCuZXQoMMG0mL UoZVOhcQCaf85tT8t1EQ1 meDtiGDSkkRJdJZTjo6Om eRTbeIe8rJMoPqEtTHxdI JHzJIrjlDu9tHY6DM2oOP BwU6TdY3oeeXHlIYDlNUC nvWAftl2jxNQixF== [facility] [employer] Work Phone: Gross Description y9obkSEoIFGofBCIVFIp M FLiLP9whGhilYd8rHjmBZ WlsrZ3yLOnRShui7aeZSR 9o2tsokPMBcheMHYtWB0e QAscTPHkSJ5wBeJyTKKpZ mYxXHBhcGVydzEyMjQwXH XsoQSkqKX0QPEeZV5slaj mSXjwUUrzVGFhudU8CKWt jOZyD0OpIQVcZO4ttoliY NW3YMUQDbweWy4lbPNcyK ANCntcZjFcZmNoYXJzZXQ rYQPba3eiozBVaprhqYv6 MGt8XCRwTZPnmJLnr1I7U Aiwi7bfj3MqF4Aep7JmLY j5tY5ALkryD95vt1Z8Qxr 5OLYmQSb9HWteIMReUYRg Dle6DLx3U6qwUBBaYAjyR JLhTOixeSQpIUh2HGqfo7 OnkFPjCLy8BMewLUTrT8J kB1SkTEepIuJsONplJRFp UWYoUTtwSRQfE0NZJTRiW uT2QAy9SGXrUWh3TDmmIz ARXTW7YUA9VzS4BEq7XPI lZB1iNLzmjSOqNUjbJgyj YWnmB960FWcpGFKrY0QzW 3QgXFxzZyBcXGlkIDUxMD HoMAnrLFEpP1QWEHCkFaV 2YFv5RMOdRSg3UQnxP2PY BUNsUUD4QXV3VbR7HiJ6N Ye6OHOSQk4sPDO0Tql1Ee a8KDQ2FBBlPFuiagorCPa 0IDIgXFxzcyAzIFxcZmwg OUimC12vbPIoWTMZVhgql GFpblxlcGljTmVzdERvYz XjGKgbqAOptKPqRI8CXRd 0cmNoXGNmMVxmczIwIEEg XRUFsNL9hsGiXRVjtir1c SywODKlsXnhQ5DcRQYmEO BhciANCjEwMDAgbUwgXHB dl7GxM1A7HGBkLAoab2ef NUJsFFcwm9IpWZxWEXOHI H6HAZ3heQS3GZtPOKRFM4 oYkFHwHBRlK9omoZO3t4a icKBap4j2HLbyVSU9zALu e3FjmJkeUjserKM9ROmzJ sipyW7yoNRHFETTVwmKAj dgdoFjQL2ZZDKQHO8ZmVH pCBLgE6uluSQ6h0xsjVGn z0a9AAjrWON8oMsmaZLts lxsdHJjaFxmczIwICBccH WurJQcgUpiHocukBC8PVs iBpwpcJ7ilLIRXAQKKdpL IhwyspHaAY6EOAIVWyWPW F99JVT9LAO0hET4Ng55IO HvIIPnvKVyNRrfI396xXZ fpB81v7ajzQWfSVxrKqcp aXUjtlX0KKqALEBXENyCO gFhAP0pAMrAX4FPJvN1AN N9QQL3dKD1Tj15XAOkAZN lfEXrWBtgB124GXJnFLhi PCb4qjKwCIKhTvTkYUGmr VcuSXPsE4DjugVkGMyyzl 69WSR4s2zimPCtDPjwLbo bwEItdhT4SHzTETPKRUoD YiXzWW6qIRePX7IPNYfQE obkXHirEzL0I4hueEysSc xyepYtkGOqVaQGnD1lfkO rtEoeVehfcDC4PMwoGtzw gY1bpXCNZMBKJoiESusve wVqVB9VRVROJQ9TzTKjKH PrWCheeMU2e4gwbCPqv5u 4BXkqLSH9tArjnOMwoyus oDVmyMsrycLuME6aELMkk iANClxiXGNmMiBNYXRlcm iufWUmLMRjkMHpWXY1DXV cJZEeKOBmZVCuxD5BhyYc IGFuZCAxIENlbGwgQmxvY 6icycvhdHCtPF4KQJOcxu ANClxmMlxmczIyXHBhciA WEqaqZOWvKYNveMMDo8Xq UAATJai8TS4COQUhFGPxm PZLPNN0GM0uUAewEBHrU1 IxL7UvqfB8a1ezrMlnt8W zlHDcMX2yoECsUV3OWPEq mwLjHDtruDkepV6nWDz6 [facility] Phone: Pathologist Interpretation Location [facility], [address] [place] [id number]; CLIA: [id number]; Joint Commission: [id number]; CAP: [id number] [facility] Phone: Pathology report final diagnosis Narrative r1owoSErLKAyfYEwRJYmI ZcjsiNsPLVtgZWoJ4Rjrc jyHDagDB7dKB7xgDrnlYD qvUTxLLEpPmSey1pov745 xFZpz5erMLGGJYsdXRDLD Et4bKjhH56sj1P8HsrjP2 spZBD9LBmqtaAqdfi1XMI keUJ9FNj0PDLutPCbvbQa SfIgZZHqsBYynQH8PFWhP K1olluzCUrlSSbdGBImnm C1EWCznNOnU0CaFNSzMJ9 whpdjPYK2XXmcTAZzZHJ3 DeHvXKSlf1Jkrkd8JiGil GFyZFxwbGFpblxmczIwXG NmMSBBICAtIFBsZXVyYWw mQ8T5aLR2QYJRLHB0FP9o Ic6zhHGQhAMeDYpsQ8i2s 5nyP6c4OETcVXCkJImqNB CmKl8uBUPWOSpSSZ1EJTR DOVfIMBiHCT8EJQNMHEAt XHBhclxwYXJ9 [employer] Work Phone: [employer] Work Phone: No Panel InformationOrdered By: Ronal Maurice on 04-14-2025 P [place] 44 degrees [employer] Work Phone: GA Interval 134 ms [facility] Work Phone: QRS [place] -35 degrees [facility] Work Phone: QRSD Interval 117 ms [facility] Work Phone: QT Interval 390 ms [employer] Work Phone: QTC Interval 450 ms [employer] Work Phone: T Wave [place] 78 degrees [employer] Work Phone: [facility] Work Phone: Nursing Noteon 08-06-2025 Nursing Note Normal [facility] Progress Noteon 04-14-2025 Progress Note Normal [facility] Progress Note Normal [facility] Progress Note Normal [facility] Progress Note Normal [facility] Progress Note Normal [facility] US GUIDED THORACENTESISon US GUIDED THORACENTESIS Normal [facility] Vital signsOrdered By: Jake Maurice on 04-14-2025 Heart rate 80 /min bpm [facility] [email or web address] Phone: XR Chest Single viewon 04-14 [facility] XR Chest Single viewOrdered By: Anthony Christian on 04-14-2025 [facility] [email or web address] Phone: [phone] 04-13-2025 [id number] Normal [facility] BLOOD GAS ARTERIALon 025 AMOUNT OF OXYGEN 2 lpm Normal [facility] Comment on above: Order Comment: Pleas e draw tomorrow AM after using BiPAP. Thank you! Performed By: #### L [id number] ####Finishing Supervisor [employer]astic Sheets: UNA ARCE ([phone])[facility] ([address] Base excess Calc (Bld) [Moles/Vol] 11.7 mmol/L High -3.0-3.0 [facility] Comment on above: Order Comment: Pleas e draw tomorrow AM after using BiPAP. Thank you! Performed By: #### L [id number] ####Finishing Supervisor Plastic Sheets: UNA ARCE ([id number])[facility] ([facility])[address] [place] [address] CO2 [Moles/Vol] 39.9 mmol/L High 22.0-28.0 [facility] Comment on above: Order Comment: Pleas e draw tomorrow AM after using BiPAP. Thank you! Performed By: #### L [id number] ####Finishing Supervisor Plastic Sheets: UNA [phone])[facility] [place] ([facility])[address] HCO3 (Bld) [Moles/Vol] 38.1 mmol/L High 21.0-27.0 [facility] Comment on above: Order Comment: Pleas e draw tomorrow AM after using BiPAP. Thank you! Performed By: #### L [id number] ####Finishing Supervisor [employer]astic Sheets: UNA STAUFFERMELANIE ([phone])[facility] ([facility])[address] Hemoglobin (Bld) [Mass/Vol] 11.3 g/dL Low Screen only [facility] Comment on above: Order Comment: Pleas e draw tomorrow AM after using BiPAP. Thank you! Performed By: #### L [id number] ####Finishing Supervisor [employer]astic Sheets: UNA STAUFFERMELANIE ([phone])[facility] ([facility])[address] [place] [address] OXYGEN SATURATION (%) IN ARTERIAL BLOOD 95.1 % Low 97.0-99.0 [facility] Comment on above: Order Comment: Pleas e draw tomorrow AM after using BiPAP. Thank you! Performed By: #### L [id number] ####Finishing Supervisor Plastic Sheets: UNA ARCE ([id number])[facility] ([facility])[address] [place] [address] PCO2 ARTERIAL 59.2 mm Hg High 35.0-48.0 [facility] Comment on above: Order Comment: Pleas e draw tomorrow AM after using BiPAP. Thank you! Performed By: #### L [id number] ####Finishing Supervisor Plastic Sheets: UNA STAUFFERMELANIE ([phone])[facility] ([facility])[address] PH ARTERIAL 7.426 Normal 7.350-7.450 [facility] Comment on above: Order Comment: Pleas e draw tomorrow AM after using BiPAP. Thank you! Performed By: #### L [id number] ####Finishing Supervisor Plastic Sheets: UNA ARCE ([id number])[facility] ([facility])[address] PO2 ARTERIAL 79.2 mm Hg Low 83.0-108.0 [facility] Comment on above: Order Comment: Pleas e draw tomorrow AM after using BiPAP. Thank you! Performed By: #### L [id number] ####Finishing Supervisor Plastic Sheets: UNA ARCE ([id number])[facility] ([facility])[address] SOURCE OF OXYGEN Nasal Cannula (LPM) Normal [facility] Comment on above: Order Comment: Pleas e draw tomorrow AM after using BiPAP. Thank you! Performed By: #### L [id number] ####Finishing Supervisor Plastic Sheets: UNA ARCE ([phone])[facility] ([facility])[address] Bacteria identified Aer cx N om (Unsp spec)on 04-13-2025 Gram Stain Result Rare Polymorphonuclear leukocytes per low power field [facility] Gram Stain Result No organisms seen [facility] Bacteria identified Aer cx N om (Unsp spec)Ordered By: Bianca Daigle on 04-13-2025 Gram Stain Result Moderate Polymorphonuclear leukocytes per low power field [facility] Gram Stain Result No organisms seen [facility] CBC W Auto Differential pane l (Bld)on 04-13-2025 Erythrocyte distribution width (RBC) [Ratio] 25 % High 11.5 - 15.0 % [facility] Hematocrit (Bld) [Volume fraction] 28.2 % Low 40.0 - 52.0 % [facility] Hemoglobin (Bld) [Mass/Vol] 7.8 g/dL Low 13.0 - 18.0 g/dL [facility] Interpretation and review of laboratory results Abnormal [facility] MCH (RBC) [Entitic mass] 23.2 pg Low 26. 0 - 34.0 pg [facility] MCHC (RBC) [Mass/Vol] 27.7 % Low 30.5 - 36.0 % [facility] MCV (RBC) [Entitic vol] 83.9 fL 77.0 - 99.0 fL [facility] Platelet mean volume (Bld) [Entitic vol] 9.1 fL 9.0 - 12.7 fL [facility] Platelets (Bld) [#/Vol] 276 10*3/uL 140 - 440 10*3/uL [facility] RBC (Bld) [#/Vol] 3.36 10*6/uL Low 4.40 - 5.9 0 10*6/uL [facility] WBC (Bld) [#/Vol] 12.7 10*3/uL High 3.6 - 10.7 10*3/uL [facility] CBC WITH AUTO DIFFERENTIALon 04-13-2025 Erythrocyte distribution width (RBC) [Ratio] 25.0 % High 11.5-15.[address] [facility] Comment on above: Performed By: #### L [id number], [id number] ####Finishing Supervisor Plastic Sheets: UNA ARCE ([id number])[facility] ([facility])[address] [place] [address] Hematocrit (Bld) [Volume fraction] 28.2 % Low 40.0-52.0 [facility] Comment on above: Performed By: #### L [id number], [id number] ####Finishing Supervisor Plastic Sheets: UNA ARCE ([id number])[facility] ([facility])[address] [place] [address] Hemoglobin (Bld) [Mass/Vol] 7.8 g/dL Low 13.0-18.0 [facility] Comment on above: Performed By: #### L [id number], [id number] ####Finishing Supervisor Plastic Sheets: UNA ARCE ([id number])[facility] ([facility])[address] [place] [address] MCH (RBC) [Entitic mass] 23.2 pg Low 26.0-34.[address] [facility] Comment on above: Performed By: #### L [id number], [id number] ####Finishing Supervisor Plastic Sheets: UNA ARCE ([id number])[facility] ([facility])[address] [place] [address] MCHC 27.7 % Low 30.5-36.[address] [facility] Comment on above: Performed By: #### L [id number], [id number] ####Finishing Supervisor Plastic Sheets: UNA ARCE ([id number])[facility] [place] ([facility])[address] MCV (RBC) [Entitic vol] 83.9 fL Normal 77.0-99.0 [facility] Comment on above: Performed By: #### L [id number], [id number] ####Finishing Supervisor Plastic Sheets: UNA ARCE ([id number])[facility] [place] ([facility])[address] Platelet mean volume (Bld) [Entitic vol] 9.1 fL Normal 9.0-12.7 [facility] Comment on above: Performed By: #### L [id number], [id number] ####Finishing Supervisor Plastic Sheets: UNA ARCE ([id number])[facility] [place] ([facility])[address] [place] [address] [place] Platelets (Bld) [#/Vol] 276 10*3/uL Normal 140-440 [facility] Comment on above: Performed By: #### L [id number], [id number] ####Finishing Supervisor Plastic Sheets: UNA ARCE ([id number])[facility] [place] ([facility])[address] RBC (Bld) [#/Vol] 3.36 10*6/uL Low 4.40-5.90 [facility] Comment on above: Performed By: #### L [id number], [id number] ####Finishing Supervisor Plastic Sheets: UNA ARCE ([id number])[facility] [place] ([facility])[address] [place] [address] [place] WBC (Bld) [#/Vol] 12.7 10*3/uL High 3.6-10.7 [facility] Comment on above: Performed By: #### L [id number], [id number] ####Finishing Supervisor Plastic Sheets: UNA ARCE ([id number])[facility] [place] ([facility])[address] COMPREHENSIVE METABOLIC PANE Anant 04-13-2025 Albumin [Mass/Vol] 2.2 g/dL Low 3.4-4.8 [facility] Comment on above: Performed By: #### L [id number], [id number], [id number] ####Finishing Supervisor Plastic Sheets: UNA ACRE ([id number])[facility] [place] ([facility])[address] ALP [Catalytic activity/Vol] 52 U/L Normal 40-150 [facility] Comment on above: Performed By: #### L AB17, [id number], [id number] ####Finishing Supervisor Plastic Sheets: UNA ARCE ([id number])[facility] [place] ([facility])[address] ALT [Catalytic activity/Vol] U/L Normal <40 [facility] Comment on above: Performed By: #### L AB17, [id number], [id number] ####Finishing Supervisor Plastic Sheets: UNA ARCE ([id number])[facility] [place] ([facility])[address] Anion gap [Moles/Vol] 10 mmol/L Normal 3-13 [facility] Comment on above: Performed By: #### L AB17, [id number], [id number] ####Finishing Supervisor Plastic Sheets: UNA ARCE ([id number])[facility] ([facility])[address] AST [Catalytic activity/Vol] 25 U/L Normal <34 [facility] Comment on above: Performed By: #### L AB17, [id number], [id number] ####Finishing Supervisor Plastic Sheets: UNA ARCE ([id number])[facility] [place] ([facility])[address] Bilirubin [Mass/Vol] 0.6 mg/dL Normal <1.2 [facility] Comment on above: Performed By: #### L AB17, [id number], [id number] ####Finishing Supervisor Plastic Sheets: UNA ARCE ([id number])[facility] [place] ([facility])[address] Calcium [Mass/Vol] 8.1 mg/dL Low 8.8-10.0 [facility] Comment on above: Performed By: #### L AB17, [id number], [id number] ####Finishing Supervisor Plastic Sheets: UNA ARCE ([id number])[facility] [place] ([facility])[address] Chloride [Moles/Vol] 93 mmol/L Low 98-107 [facility] Comment on above: Performed By: #### L AB17, [id number], [id number] ####Finishing Supervisor Plastic Sheets: UNA ARCE ([id number])[facility] [place] ([facility])[address] CO2 [Moles/Vol] 36 mmol/L High 23-31 [facility] Comment on above: Performed By: #### Gilbert AB17, [id number], [id number] ####Finishing Supervisor Plastic Sheets: UNA ARCE ([id number])[facility] [place] ([facility])[address] Creatinine [Mass/Vol] 1.46 mg/dL High 0.72-1.25 [facility] Comment on above: Performed By: #### L AB17, [id number], [id number] ####Finishing Supervisor Plastic Sheets: UNA ARCE ([id number])[facility] [place] ([facility])[address] [place] [address] [place] GLOMERULAR FILTRATION RATE ML/MIN/1.73 SQ M.PREDICTED 45.7 mL/min/1.73m*2 Low >60.0 [facility] Comment on above: Result Comment: Calc ulation based on the Chronic Kidney Disease Epidemiology Collaboration (CKD-EPI) equation refit without adjustment for race Performed By: #### L AB17, [id number], [id number] ####Finishing Supervisor Plastic Sheets: UNA ARCE ([id number])[facility] [place] ([facility])[address] [place] [address] [place] Glucose [Mass/Vol] 94 mg/dL Normal 82-115 [facility] Comment on above: Performed By: #### L AB17, [id number], [id number] ####Finishing Supervisor Plastic Sheets: UNA ARCE ([id number])[facility] ([facility])[address] Potassium [Moles/Vol] 3.4 mmol/L Low 3.5-5.1 [facility] Comment on above: Result Comment: [facility] potassium values may be up to 0.5 mmol/L lower than serum values. Performed By: #### L AB17, [id number], [id number] ####Finishing Supervisor Plastic Sheets: UNA ARCE ([id number])[facility] ([facility])[address] Protein [Mass/Vol] 5.8 g/dL Low 6.4-8.3 [facility] Comment on above: Performed By: #### L AB17, [id number], [id number] ####Finishing Supervisor Plastic Sheets: UNA ARCE ([id number])[facility] ([facility])[address] Sodium [Moles/Vol] 139 mmol/L Normal 136-145 [facility] Comment on above: Performed By: #### L AB17, [id number], [id number] ####Finishing Supervisor Plastic Sheets: UNA ARCE ([id number])[facility] ([facility])[address] Urea nitrogen [Mass/Vol] 37 mg/dL High 9-23 [facility] Comment on above: Performed By: #### L AB17, [id number], [id number] ####Finishing Supervisor Plastic Sheets: UNA ARCE ([id number])[facility] ([facility])[address] Comprehensive metabolic 1998 panelon 04-13-2025 Albumin [Mass/Vol] 2.2 g/dL Low 3.4 - 4.8 g/dL [facility] ALP [Catalytic activity/Vol] 52 U/L 40 - 150 U/L [facility] ALT [Catalytic activity/Vol] U/L NINF - 40 U/L [facility] Anion gap [Moles/Vol] 10 mmol/L 3 - 13 mmol/L [facility] AST [Catalytic activity/Vol] 25 U/L NINF - 34 U/L [facility] Bilirubin [Mass/Vol] 0.6 mg/dL NINF - 1.2 mg/dL [facility] Calcium [Mass/Vol] 8.1 mg/dL Low 8.8 - 10. 0 mg/dL [facility] Chloride [Moles/Vol] 93 mmol/L Low 98 - 10 7 mmol/L [facility] CO2 [Moles/Vol] 36 mmol/L High 23 - 31 mmol/L [facility] Creatinine [Mass/Vol] 1.46 mg/dL High 0.72 - 1.25 mg/dL [facility] GFR/1.73 sq M.predicted (S/P/Bld) [Vol rate/Area] 45.7 mL/min Low - PINF [facility] Glucose [Mass/Vol] 94 mg/dL 82 - 115 mg/dL [facility] Interpretation and review of laboratory results Abnormal [facility] Potassium [Moles/Vol] 3.4 mmol/L Low 3.5 - 5.1 mmol/L [facility] Protein [Mass/Vol] 5.8 g/dL Low 6.4 - 8.3 g/dL [facility] Sodium [Moles/Vol] 139 mmol/L 136 - 145 mmol/L [facility] Urea nitrogen [Mass/Vol] 37 mg/dL High 9 - 23 mg/d L [facility] Laboratory - Chemistry and C hemistry - challengeon 04-13-2025 Base excess Calc (Bld) [Moles/Vol] 11.7 mmol/L High -3.0 - 3.0 mmol/L [facility] CO2 (Bld) [Partial pressure] 59.2 mm[Hg] High [facility] CO2 [Moles/Vol] 39.9 mmol/L High 22.0 - 28.0 mmol/L [facility] HCO3 (Bld) [Moles/Vol] 38.1 mmol/L High 21.0 - 27.0 mmol/L [facility] Oxygen (Bld) [Partial pressure] 79.2 mm[Hg] Low [facility] pH (Bld) 7.426 [pH] 7.350 - 7.450 [facility] Magnesium [Mass/Vol] 1.9 mg/dL 1.6 - 2 .6 mg/dL [facility] Laboratory - Hematology and Cell countson 04-13-2025 Hemoglobin (Bld) [Mass/Vol] 11.3 g/dL Low 13.5 - 17.5 g/dl [facility] Anisocytosis Ql (Bld) Moderate Abnormal (none) [facility] Eosinophils (Bld) [#/Vol] 0.3 10*3/uL 0.0 - 0.5 10*3/uL [facility] Eosinophils/100 WBC (Bld) 2 % 0 - 6 % [facility] Hypochromia Ql (Bld) Slight Abnormal (none) [facility] Lymphocytes (Bld) [#/Vol] 1.9 10*3/uL 1.0 - 4.3 10*3/uL [facility] Lymphocytes/100 WBC (Bld) 15 % 15 - 45 % [facility] Monocytes (Bld) [#/Vol] 0.9 10*3/uL 0.0 - 0.9 10*3/uL [facility] Monocytes/100 WBC (Bld) 7 % 5 - 13 % [facility] Myelocytes (Bld) [#/Vol] 0.1 10*3/uL High SELENE F - 0.0 10*3/uL [facility] Myelocytes/100 WBC (Bld) 1 % High NINF - 0 % [facility] Neutrophils (Bld) [#/Vol] 9.7 10*3/uL High 1.8 - 7.5 10*3/uL [facility] Poikilocytosis LM Ql (Bld) Slight Abnormal (none) [facility] RBC morphology finding Nom (Bld) abnormal [facility] Segmented neutrophils/100 WBC (Bld) 76 % 38 - 82 % [facility] Stomatocytes LM Ql (Bld) Slight Abnormal (none) [facility] Laboratory - Microbiology an d Antimicrobial susceptibilityon 04-13-2025 Bacteria identified Aer cx Nom (Unsp spec) No growth at 4 days [facility] - Microbiology an d Antimicrobial susceptibilityOrdered By: Bianca Daigle on 04-13-2025 Bacteria identified Aer cx Nom (Unsp spec) No growth at 4 days [facility] MAGNESIUMon 04-13-2025 Magnesium [Mass/Vol] 1.9 mg/dL Normal 1.6-2.6 [facility] Comment on above: Result Comment: ORDE R COMMENTS:Higher values can be expected in females during menses. Performed By: #### L [id number], [id number], [id number] ####Finishing Supervisor [employer]: UNA ARCE ([phone])[facility] MANUAL DIFFERENTIAL (CELLAVI BANDAR)on 04-13-2025 ANISOCYTOSIS PRESENCE IN BLOOD BY LIGHT MICROSCOPY Moderate Abnormal (none) [facility] Comment on above: Performed By: #### L [id number], [id number] ####Finishing Supervisor [employer]: UNA ARCE ([phone])[facility])[address] BAND NEUTROPHILS TOTAL PER COUNTED LEUKOCYTES BY MANUAL COUNT Normal [facility] Comment on above: Performed By: #### L [id number], [id number] ####Finishing Supervisor [employer]: UNA ARCE ([phone])[facility] ([facility])[address] BASOPHILS TOTAL PER COUNTED LEUKOCYTES BY MANUAL COUNT Normal [facility] Comment on above: Performed By: #### L [id number], [id number] ####Finishing Supervisor [employer]: UNA ARCE ([phone])[facility] [place] ([facility])[address] BLASTS TOTAL PER COUNTED LEUKOCYTES BY MANUAL COUNT Normal [facility] Comment on above: Performed By: #### L [id number], [id number] ####Finishing Supervisor [employer]: UNA ARCE ([phone])[facility] [place] ([facility])[address] [place] [address] [place] EOSINOPHILS (10*3/UL) IN BLOOD-CELLAVISION 0.3 10*3/uL Normal 0.0-0.5 [facility] Comment on above: Performed By: #### L [id number], [id number] ####Finishing Supervisor [employer]: UNA ARCE ([phone])[facility] ([facility])[address] [place] [address] [place] EOSINOPHILS TOTAL PER COUNTED LEUKOCYTES BY MANUAL COUNT 2 High 0-1 [facility] Comment on above: Performed By: #### L [id number], [id number] ####Finishing Supervisor [employer]: UNA ARCE ([phone])[facility] [place] [facility])[address] [place] [address] [place] EOSINOPHILS/100 LEUKOCYTES IN BLOOD-CELLAVISION 2 % Normal 0-6 [facility] Comment on above: Performed By: #### L [id number], [id number] ####Finishing Supervisor [employer]: UNA MOHRCER ([phone])[facility])[address] [place] [address] [place] HYPOCHROMIA (PRESENCE) IN BLOOD BY LIGHT MICROSCOPY Slight Abnormal (none) [facility] Comment on above: Performed By: #### L [id number], [id number] ####Finishing Supervisor [employer]: UNA ARCE ([id number])[facility] [place] [address] [place] LYMPHOCYTES (10*3/UL) IN BLOOD-CELLAVISION 1.9 10*3/uL Normal 1.0-4.3 [facility] Comment on above: Performed By: #### L [id number], [id number] ####Finishing Supervisor [employer]astic Sheets: UNA ARCE ([phone])[facility] [place] ([facility])[address] [place] [address] [place] LYMPHOCYTES TOTAL PER COUNTED LEUKOCYTES BY MANUAL COUNT 15 Normal [facility] Comment on above: Performed By: #### L [id number], [id number] ####Finishing Supervisor [employer]: UNA ARCE ([phone])[facility] [place] ([facility] [place] [address] [place] LYMPHOCYTES/100 LEUKOCYTES IN BLOOD-CELLAVISION 15 % Normal 15-[address] [facility] Comment on above: Performed By: #### L [id number], [id number] ####Finishing Supervisor [employer]: UNA ARCE ([phone])[facility] [place] (SB[facility]AB)[address] [place] [address] [place] METAMYELOCYTES TOTAL PER COUNTED LEUKOCYTES BY MANUAL COUNT Normal [facility] Comment on above: Performed By: #### L [id number], [id number] ####Finishing Supervisor [employer]: UNA ARCE ([phone])[facility] [place] [facility] [place] [address] [place] MONOCYTES (10*3/UL) IN BLOOD-CELLAVISION 0.9 10*3/uL Normal 0.0-0.[address] [facility] Comment on above: Performed By: #### L [id number], [id number] ####Finishing Supervisor [employer] Sheets: UNA ARCE ([phone])[facility] [place] (SB[facility])[address] [place] [address] [place] MONOCYTES TOTAL PER COUNTED LEUKOCYTES BY MANUAL COUNT [address] [facility] Comment on above: Performed By: #### L [id number], [id number] ####Finishing Supervisor [employer] Sheets: UNA ARCE ([phone])[facility] [place] [facility] [place] [address] [place] MONOCYTES/100 LEUKOCYTES IN BLOOD-LUCIANA 7 % Normal 5-[address] [facility] Comment on above: Performed By: #### L [id number], [id number] ####Finishing Supervisor [employer] Sheets: UNA ARCE ([phone])[facility] [place] ([facility] [place] [address] [place] MYELOCYTES (10*3/UL) IN BLOOD-CELLAVISION 0.1 10*3/uL High <=0.[address] [facility] Comment on above: Performed By: #### L [id number], [id number] ####Finishing Supervisor [employer]: UNA ARCE ([phone])[facility] [place] ([facility])[address] [place] [address] [place] MYELOCYTES COUNTED BY MANUAL COUNT [address] [facility] Comment on above: Performed By: #### L [id number], [id number] ####Finishing Supervisor [employer] Sheets: UNA [phone])[facility] [place] ([facility])[address] [place] [address] [place] MYELOCYTES/100 LEUKOCYTES IN BLOOD-CELLAVISION 1 % High <=0 [facility] Comment on above: Performed By: #### L [id number], [id number] ####Finishing Supervisor [employer] Sheets: UNA ARCE ([phone])[facility] [place] ([facility])[address] [place] [address] [place] NEUTROPHILS TOTAL PER COUNTED LEUKOCYTES BY MANUAL COUNT 77 Normal [facility] Comment on above: Performed By: #### L [id number], [id number] ####Finishing Supervisor [employer] Sheets: UNA ARCE ([phone])[facility] [place] ([facility] [place] [address] [place] POIKILOCYTOSIS (PRESENCE) IN BLOOD BY LIGHT MICROSCOPY Slight Abnormal (none) [facility] Comment on above: Performed By: #### L [id number], [id number] ####Finishing Supervisor [employer] Sheets: UNA ARCE ([phone])[facility] [place] ([facility] [place] [address] [place] PROMYELOCYTES TOTAL PER COUNTED LEUKOCYTES BY MANUAL COUNT [facility] Comment on above: Performed By: #### L [id number], [id number] ####Finishing Supervisor [employer] Sheets: UNA ARCE ([phone])[facility] [place] ([facility] [place] [address] [place] RBC MORPHOLOGY IN BLOOD abnormal Normal [facility] Comment on above: Performed By: #### L [id number], [id number] ####Finishing Supervisor [employer] Sheets: UNA ARCE ([phone])[facility] [place] ([facility])[address] [place] [address] [place] SEGMENTED NEUTROPHILS (10*3/UL) IN BLOOD-CELLAVISION 9.7 10*3/uL High 1.8-7.5 [facility] Comment on above: Performed By: #### L [id number], [id number] ####Finishing Supervisor [employer] Sheets: UNA ARCE ([phone])[facility] [place] ([facility])[address] SEGMENTED NEUTROPHILS/100 LEUKOCYTES-CE 76 % Normal 38-[address] [facility] Comment on above: Performed By: #### L [id number], [id number] ####Finishing Supervisor [employer] Sheets: UNA ARCE ([id number])[facility] ([facility])[address] STOMATOCYTES IN BLOOD BY LIGHT MICROSCOPY Slight Abnormal (none) [facility] Comment on above: Performed By: #### L [id number], [id number] ####Finishing Supervisor [employer]astic Sheets: UNA ARCE ([id number])[facility] ([facility])[address] UNCLASSIFIED CELLS TOTAL PER COUNTED LEUKOCYTES BY MANUAL COUNT Normal [facility] Comment on above: Performed By: #### L [id number], [id number] ####Finishing Supervisor [employer] Sheets: UNA ARCE ([phone])[facility] ([facility])[address] VARIANT LYMPHOCYTES TOTAL PER COUNTED LEUKOCYTES BY MANUAL COUNT Normal [facility] Comment on above: Performed By: #### L [id number], [id number] ####Finishing Supervisor [employer]astic Sheets: UNA ARCE ([phone])[facility] (SBHLAB)[address] Magnesium [Mass/Vol]on 04-13 [facility] No Panel Informationon 04-13 Amount Of Oxygen 2 lpm [facility] alth Interpretation and review of laboratory results Abnormal [facility] Source Of Oxygen Nasal Cannula (LPM) [facility] Interpretation and review of laboratory results Normal [facility] Eosinophils Manual 2 High 0 - 1 [facility] Interpretation and review of laboratory results Abnormal [facility] Lymphocytes Manual 15 [facility] Monocytes Manual 7 [facility] Myelocytes Manual 1 [facility] ealth Neutrophils Manual 77 [facility] PHOSPHORUSon 04-13-2025 Phosphate [Mass/Vol] 2.9 mg/dL Normal 2.3-4.7 [facility] Comment on above: Performed By: #### L AB17, [id number], [id number] ####Finishing Supervisor Plastic Sheets: UNA ARCE ([phone])[facility] (SBAB)[address] [place] [address] Phosphate [Moles/Vol]on Phosphate [Mass/Vol] 2.9 mg/dL 2.3 - 4 .7 mg/dL [facility] Progress Noteon 04-13-2025 Progress Note Normal [facility] Progress Note Normal [facility] Normal [facility] Progress Note Normal [facility] XR Chest Single viewon 04-13 Radiology Study observation (narrative) [facility] alth [id number] 04-12-2025 [id number] Normal [facility] [id number] Normal [facility] CBC W Auto Differential pane l (Bld)on 04-12-2025 Erythrocyte distribution width (RBC) [Ratio] 24.3 % High 11.5 - 15.0 % [facility] Hematocrit (Bld) [Volume fraction] 26.8 % Low 40.0 - 52.0 % [facility] Hemoglobin (Bld) [Mass/Vol] 7.4 g/dL Low 13.0 - 18.0 g/dL [facility] MCH (RBC) [Entitic mass] 23.1 pg Low 26. 0 - 34.0 pg [facility] MCHC (RBC) [Mass/Vol] 27.6 % Low 30.5 - 36.0 % [facility] MCV (RBC) [Entitic vol] 83.8 fL 77.0 - 99.0 fL [facility] Platelet mean volume (Bld) [Entitic vol] 9.3 fL 9.0 - 12.7 fL [facility] Platelets (Bld) [#/Vol] 272 10*3/uL 140 - 440 10*3/uL [facility] RBC (Bld) [#/Vol] 3.2 10*6/uL Low 4.40 - 5.9 0 10*6/uL [facility] WBC (Bld) [#/Vol] 12 10*3/uL High 3.6 - 10.7 10*3/uL [facility] CBC WITH AUTO DIFFERENTIALon 04-12-2025 Erythrocyte distribution width (RBC) [Ratio] 24.3 % High 11.5-15.0 [facility] Comment on above: Performed By: #### L [id number], [id number] ####Finishing Supervisor [employer]astic Sheets: UNA ARCE ([id number])[facility] (SB[facility]AB)[address] Hematocrit (Bld) [Volume fraction] 26.8 % Low 40.0-52.0 [facility] Comment on above: Performed By: #### L [id number], [id number] ####Finishing Supervisor [employer]astic Sheets: UNA ARCE ([id number])[facility] (SBAB)[address] Hemoglobin (Bld) [Mass/Vol] 7.4 g/dL Low 13.0-18.0 [facility] Comment on above: Performed By: #### L [id number], [id number] ####Finishing Supervisor [employer]astic Sheets: UNA ARCE ([id number])[facility] (SB[facility])[address] MCH (RBC) [Entitic mass] 23.1 pg Low 26.0-34.0 [facility] Comment on above: Performed By: #### L [id number], [id number] ####Finishing Supervisor Plastic Sheets: UNA ARCE ([id number])[facility] (SB[facility])[address] MCHC 27.6 % Low 30.5-36.0 [facility] Comment on above: Performed By: #### L [id number], [id number] ####Finishing Supervisor Plastic Sheets: UNA ARCE ([phone])[facility] (SB[facility])[address] MCV (RBC) [Entitic vol] 83.8 fL Normal 77.0-99.0 [facility] Comment on above: Performed By: #### L [id number], [id number] ####Finishing Supervisor Plastic Sheets: UNA ARCE ([id number])[facility] [place] ([facility])[address] Platelet mean volume (Bld) [Entitic vol] 9.3 fL Normal 9.0-12.7 [facility] Comment on above: Performed By: #### L [id number], [id number] ####Finishing Supervisor Plastic Sheets: UNA ARCE ([id number])[facility] [place] ([facility])[address] Platelets (Bld) [#/Vol] 272 10*3/uL Normal 140-440 [facility] Comment on above: Performed By: #### L [id number], [id number] ####Finishing Supervisor [employer]astic Sheets: UNA ARCE ([phone])[facility] [place] ([facility])[address] RBC (Bld) [#/Vol] 3.20 10*6/uL Low 4.40-5.90 [facility] Comment on above: Performed By: #### L [id number], [id number] ####Finishing Supervisor Plastic Sheets: UNA ARCE ([phone])[facility] [place] ([facility])[address] WBC (Bld) [#/Vol] 12.0 10*3/uL High 3.6-10.7 [facility] Comment on above: Performed By: #### L [id number], [id number] ####Finishing Supervisor [employer]astic Sheets: UNA ARCE ([id number])[facility] [place] ([facility])[address] COMPREHENSIVE METABOLIC PANE Anant 04-12-2025 Albumin [Mass/Vol] 2.2 g/dL Low 3.4-4.8 [facility] Comment on above: Performed By: #### L AB17, [id number], [id number] ####Finishing Supervisor [employer]astic Sheets: UNA ARCE ([phone])[facility] [place] ([facility])[address] [place] [address] [place] ALP [Catalytic activity/Vol] 49 U/L Normal 40-150 [facility] Comment on above: Performed By: #### L AB17, [id number], [id number] ####Finishing Supervisor [employer]astic Sheets: UNA ARCE ([id number])[facility] [place] (SB[facility])[address] [place] [address] [place] ALT [Catalytic activity/Vol] U/L Normal <40 [facility] Comment on above: Performed By: #### L AB17, [id number], [id number] ####Finishing Supervisor [employer]astic Sheets: UNA ARCE ([phone])[facility] [place] ([facility])[address] Anion gap [Moles/Vol] 7 mmol/L Normal 3-13 [facility] Comment on above: Performed By: #### L AB17, [id number], [id number] ####Finishing Supervisor [employer]astic Sheets: UNA ARCE ([phone])[facility] [place] ([facility])[address] AST [Catalytic activity/Vol] 19 U/L Normal <34 [facility] Comment on above: Performed By: #### L AB17, [id number], [id number] ####Finishing Supervisor Plastic Sheets: UNA ARCE ([id number])[facility] [place] ([facility])[address] Bilirubin [Mass/Vol] 0.6 mg/dL Normal <1.2 [facility] Comment on above: Performed By: #### L AB17, GPE036, [id number] ####Finishing Supervisor [employer]astic Sheets: UNA ARCE ([phone])[facility] [place] ([facility])[address] [place] [address] [place] Calcium [Mass/Vol] 7.9 mg/dL Low 8.8-10.[address] [facility] Comment on above: Performed By: #### L AB17, [id number], [id number] ####Finishing Supervisor [employer]astic Sheets: UNA ARCE ([phone])[facility] [place] ([facility])[address] [place] [address] [place] Chloride [Moles/Vol] 95 mmol/L Low 98-107 [facility] Comment on above: Performed By: #### L AB17, [id number], UHX797 ####Finishing Supervisor Plastic Sheets: UNA ARCE ([id number])[facility] ([facility])[address] CO2 [Moles/Vol] 37 mmol/L High 23-31 [facility] Comment on above: Performed By: #### L AB17, [id number], [id number] ####Finishing Supervisor Plastic Sheets: UNA ARCE ([phone])[facility] Creatinine [Mass/Vol] 1.53 mg/dL High 0.72-1.25 [facility] Comment on above: Performed By: #### Gilbert AHN17, [id number], OAC146 ####Finishing Supervisor Plastic Sheets: UNA ARCE ([phone])[facility] GLOMERULAR FILTRATION RATE ML/MIN/1.73 SQ M.PREDICTED 43.2 mL/min/1.73m*2 Low >60.0 [facility] Comment on above: Result Comment: Calc ulation based on the Chronic Kidney Disease Epidemiology Collaboration (CKD-EPI) equation refit without adjustment for race Performed By: #### L 17, [id number], [id number] ####Finishing Supervisor Plastic Sheets: UNA ARCE ([phone])[facility] ([facility])[address] Glucose [Mass/Vol] 103 mg/dL Normal 82-115 [facility] Comment on above: Performed By: #### L AB17, [id number], IOX323 ####Finishing Supervisor Plastic Sheets: UNA ARCE ([id number])[facility] ([facility])[address] Potassium [Moles/Vol] 3.7 mmol/L Normal 3.5-5.1 [facility] Comment on above: Result Comment: Plas ma potassium values may be up to 0.5 mmol/L lower than serum values. Performed By: #### L AB17, KVS311, HMO790 ####Finishing Supervisor [employer]astic Sheets: UNA STAUFFERMELANIE ([id number])[facility] ([facility])[address] Protein [Mass/Vol] 5.6 g/dL Low 6.4-8.3 [facility] Comment on above: Performed By: #### L AB17, [id number], QUD521 ####Finishing Supervisor Plastic Sheets: UNA ARCE ([phone])[facility] ([facility])[address] Sodium [Moles/Vol] 139 mmol/L Normal 136-145 [facility] Comment on above: Performed By: #### L AB17, [id number], TXM874 ####Finishing Supervisor Plastic Sheets: UNA ARCE ([phone])[facility] ([facility])[address] Urea nitrogen [Mass/Vol] 40 mg/dL High 9-23 [facility] Comment on above: Performed By: #### L AB17, RAD171, GFX052 ####Finishing Supervisor Plastic Sheets: UNA BERMUDEZPEDRO ([phone])[facility] (SBHLAB)[address] [place] [address] Comprehensive metabolic 1998 panelon 04-12-2025 Albumin [Mass/Vol] 2.2 g/dL Low 3.4 - 4.8 g/dL [facility] ALP [Catalytic activity/Vol] 49 U/L 40 - 150 U/L [facility] ALT [Catalytic activity/Vol] U/L NINF - 40 U/L [facility] Anion gap [Moles/Vol] 7 mmol/L 3 - 13 mmol/L [facility] AST [Catalytic activity/Vol] 19 U/L NINF - 34 U/L [facility] Bilirubin [Mass/Vol] 0.6 mg/dL NINF - 1.2 mg/dL [facility] Calcium [Mass/Vol] 7.9 mg/dL Low 8.8 - 10. 0 mg/dL [facility] Chloride [Moles/Vol] 95 mmol/L Low 98 - 10 7 mmol/L [facility] CO2 [Moles/Vol] 37 mmol/L High 23 - 31 mmol/L [facility] Creatinine [Mass/Vol] 1.53 mg/dL High 0.72 - 1.25 mg/dL [facility] GFR/1.73 sq M.predicted (S/P/Bld) [Vol rate/Area] 43.2 mL/min Low - PINF [facility] Glucose [Mass/Vol] 103 mg/dL 82 - 115 mg/dL [facility] Interpretation and review of laboratory results Abnormal [facility] Potassium [Moles/Vol] 3.7 mmol/L 3.5 - 5.1 mmol/L [facility] Protein [Mass/Vol] 5.6 g/dL Low 6.4 - 8.3 g/dL [facility] Sodium [Moles/Vol] 139 mmol/L 136 - 145 mmol/L [facility] Urea nitrogen [Mass/Vol] 40 mg/dL High 9 - 23 mg/d L [facility] Consulton 04-12-[address] [facility] Laboratory - Chemistry and C hemistry - challengeon 04-12-2025 Magnesium [Mass/Vol] 2.2 mg/dL 1.6 - 2 .6 mg/dL [facility] Laboratory - Hematology and Cell countson 04-12-2025 Anisocytosis Ql (Bld) Slight Abnormal (none) [facility] Band form neutrophils (Bld) [#/Vol] 0.1 10*3/uL High NINF - 0.0 10*3/uL [facility] Band form neutrophils/100 WBC (Bld) 1 % High NINF - 0 % [facility] Eosinophils (Bld) [#/Vol] 0.8 10*3/uL High 0.0 - 0.5 10*3/uL [facility] Eosinophils/100 WBC (Bld) 7 % High 0 - 6 % [facility] Lymphocytes (Bld) [#/Vol] 0.7 10*3/uL Low 1.0 - 4.3 10*3/uL [facility] Lymphocytes/100 WBC (Bld) 6 % Low 15 - 45 % [facility] Monocytes (Bld) [#/Vol] 0.5 10*3/uL 0.0 - 0.9 10*3/uL [facility] Monocytes/100 WBC (Bld) 4 % Low 5 - 13 % [facility] Neutrophils (Bld) [#/Vol] 9.8 10*3/uL High 1.8 - 7.5 10*3/uL [facility] RBC morphology finding Nom (Bld) abnormal [facility] Segmented neutrophils/100 WBC (Bld) 81 % 38 - 82 % [facility] MAGNESIUMon 04-12-2025 Magnesium [Mass/Vol] 2.2 mg/dL Normal 1.6-2.6 [facility] Comment on above: Result Comment: YARELI [place] COMMENTS:Higher values can be expected in females during menses. Performed By: #### L AB17, [id number], [id number] ####Finishing Supervisor [employer] Sheets: UNA ARCE ([phone])[facility] [place] ([facility])[address] MANUAL DIFFERENTIAL (CELLAVI BANDAR)on 04-12-2025 ANISOCYTOSIS PRESENCE IN BLOOD BY LIGHT MICROSCOPY Slight Abnormal (none) [facility] Comment on above: Performed By: #### L [id number], [id number] ####Finishing Supervisor [employer]astic Sheets: UNA ARCE ([phone])[facility] [place] ([facility])[address] BAND NEUTROPHILS TOTAL PER COUNTED LEUKOCYTES BY MANUAL COUNT 1 Normal [facility] Comment on above: Performed By: #### L [id number], [id number] ####Finishing Supervisor [employer]astic Sheets: UNA ARCE ([phone])[facility] [place] ([facility])[address] BANDS (10*3/UL) IN BLOOD-CELLAVISION 0.1 10*3/uL High <=0.0 [facility] Comment on above: Performed By: #### L [id number], [id number] ####Finishing Supervisor [employer] Sheets: UNA ARCE ([phone])[facility] [place] ([facility])[address] BASOPHILS TOTAL PER COUNTED LEUKOCYTES BY MANUAL COUNT Normal [facility] Comment on above: Performed By: #### L [id number], [id number] ####Finishing Supervisor [employer] Sheets: UNA BERMUDEZPEDRO ([phone])[facility] (SB[facility])[address] [place] [address] [place] BLASTS TOTAL PER COUNTED LEUKOCYTES BY MANUAL COUNT Normal [facility] Comment on above: Performed By: #### L [id number], [id number] ####Finishing Supervisor [employer] Sheets: UNA YAZMIN ([phone])[facility] [place] ([facility])[address] [place] [address] [place] EOSINOPHILS (10*3/UL) IN BLOOD-CELLAVISION 0.8 10*3/uL High 0.0-0.[address] [facility] Comment on above: Performed By: #### L [id number], [id number] ####Finishing Supervisor [employer] Sheets: UNA BERMUDEZPEDRO ([phone])[facility] [place] ([facility])[address] [place] [address] [place] EOSINOPHILS TOTAL PER COUNTED LEUKOCYTES BY MANUAL COUNT 7 High 0-[address] [facility] Comment on above: Performed By: #### L [id number], [id number] ####Finishing Supervisor [employer] Sheets: UNA BERMUDEZPEDRO ([phone])[facility] [place] ([facility])[address] [place] [address] [place] EOSINOPHILS/100 LEUKOCYTES IN BLOOD-CELLAVISION 7 % High 0-[address] [facility] Comment on above: Performed By: #### L [id number], [id number] ####Finishing Supervisor [employer] Sheets: UNA BERMUDEZPEDRO ([phone])[facility] [place] ([facility])[address] [place] [address] [place] LYMPHOCYTES (10*3/UL) IN BLOOD-CELLAVISION 0.7 10*3/uL Low 1.0-4.[address] [facility] Comment on above: Performed By: #### L [id number], [id number] ####Finishing Supervisor [employer] Sheets: UNA BERMUDEZPEDRO ([phone])[facility] [place] ([facility])[address] [place] [address] [place] LYMPHOCYTES TOTAL PER COUNTED LEUKOCYTES BY MANUAL COUNT 6 Normal [facility] Comment on above: Performed By: #### L [id number], [id number] ####Finishing Supervisor [employer]astic Sheets: UNA ARCE ([id number])[facility] ([facility])[address] [place] [address] [place] LYMPHOCYTES/100 LEUKOCYTES IN BLOOD-CELLAVISION 6 % Low 15-[address] [facility] Comment on above: Performed By: #### L [id number], [id number] ####Finishing Supervisor [employer] Sheets: UNA ARCE ([phone])[facility] [place] ([facility])[address] [place] [address] [place] METAMYELOCYTES TOTAL PER COUNTED LEUKOCYTES BY MANUAL COUNT Normal [facility] Comment on above: Performed By: #### L [id number], [id number] ####Finishing Supervisor [employer] Sheets: UNA BERMUDEZPEDRO ([phone])[facility] [place] ([facility])[address] [place] [address] [place] MONOCYTES (10*3/UL) IN BLOOD-CELLAVISION 0.5 10*3/uL Normal 0.0-0.9 [facility] Comment on above: Performed By: #### L [id number], [id number] ####Finishing Supervisor [employer] Sheets: UNA ARCE ([phone])[facility] [place] ([facility])[address] [place] [address] [place] MONOCYTES TOTAL PER COUNTED LEUKOCYTES BY MANUAL COUNT 4 Normal [facility] Comment on above: Performed By: #### L [id number], [id number] ####Finishing Supervisor [employer] Sheets: UNA ARCE ([phone])[facility] [place] ([facility])[address] [place] [address] [place] MONOCYTES/100 LEUKOCYTES IN BLOOD-LUCIANA 4 % Low 5-[address] [facility] Comment on above: Performed By: #### L [id number], [id number] ####Finishing Supervisor [employer] Sheets: UNA STAUFFERMELANIE ([phone])[facility] [place] ([facility])[address] [place] [address] [place] MYELOCYTES COUNTED BY MANUAL COUNT Normal [facility] Comment on above: Performed By: #### L [id number], [id number] ####Finishing Supervisor [employer] Sheets: UNA YAZMIN ([phone])[facility] ([facility])[address] [place] [address] [place] NEUTROPHILS BAND FORM/100 LEUKOCYTES IN BLOOD-CELLAVISI 1 % High <=0 [facility] Comment on above: Performed By: #### L [id number], [id number] ####Finishing Supervisor [employer] Sheets: UNA BERMUDEZPEDRO ([phone])[facility] [place] ([facility])[address] [place] [address] [place] NEUTROPHILS TOTAL PER COUNTED LEUKOCYTES BY MANUAL COUNT 83 Normal [facility] Comment on above: Performed By: #### L [id number], [id number] ####Finishing Supervisor [employer] Sheets: UNA BERMUDEZPEDRO ([phone])[facility] [place] ([facility])[address] [place] [address] [place] PROMYELOCYTES TOTAL PER COUNTED LEUKOCYTES BY MANUAL COUNT [facility] Comment on above: Performed By: #### L [id number], [id number] ####Finishing Supervisor [employer] Sheets: UNA BERMUDEZPEDRO ([phone])[facility] [place] ([facility] [place] [address] [place] RBC MORPHOLOGY IN BLOOD abnormal Normal [facility] Comment on above: Performed By: #### L [id number], [id number] ####Finishing Supervisor [employer]: UNA STAUFFERMELANIE ([phone])[facility] [place] ([facility])[address] [place] [address] [place] SEGMENTED NEUTROPHILS (10*3/UL) IN BLOOD-CELLAVISION 9.8 10*3/uL High 1.8-7.[address] [facility] Comment on above: Performed By: #### L [id number], [id number] ####Finishing Supervisor [employer]: UNA ARCE ([phone])[facility] [place] [facility])[address] [place] [address] [place] SEGMENTED NEUTROPHILS/100 LEUKOCYTES-CE 81 % Normal 38-82 [facility] Comment on above: Performed By: #### L [id number], [id number] ####Finishing Supervisor Plastic Sheets: UNA ARCE ([phone])[facility] (SB[facility])[address] UNCLASSIFIED CELLS TOTAL PER COUNTED LEUKOCYTES BY MANUAL COUNT Normal [facility] Comment on above: Performed By: #### L [id number], [id number] ####Finishing Supervisor [employer] Sheets: UNA ARCE ([phone])[facility] ([facility] VARIANT LYMPHOCYTES TOTAL PER COUNTED LEUKOCYTES BY MANUAL COUNT Normal [facility] Comment on above: Performed By: #### L [id number], [id number] ####Finishing Supervisor Plastic Sheets: UNA ARCE ([phone])[facility] [place] (SBHLAB)[address] Magnesium [Mass/Vol]on 04-12 [facility] No Panel Informationon 04-12 Bands Manual 1 [facility] Eosinophils Manual 7 High 0 - 1 [facility] Interpretation and review of laboratory results Abnormal [facility] Lymphocytes Manual 6 [facility] Monocytes Manual 4 [facility] alth Neutrophils Manual 83 [facility] Interpretation and review of laboratory results Normal [facility] PHOSPHORUSon 04-12-2025 Phosphate [Mass/Vol] 2.7 mg/dL Normal 2.3-4.7 [facility] Comment on above: Performed By: #### L [id number], [id number], [id number] ####Finishing Supervisor [employer] Sheets: UNA ARCE ([phone])[facility] (SB[facility])[address] [place] [address] [place] Phosphate [Moles/Vol]on Phosphate [Mass/Vol] 2.7 mg/dL 2.3 - 4 .7 mg/dL [facility] Progress Noteon 04-12-2025 Progress Note Normal [facility] Progress Note Normal [facility] Progress Note Normal [facility] Progress Note Normal [facility] Progress Note [facility] CBC W Auto Differential pane l (Bld)on 04-11-2025 Erythrocyte distribution width (RBC) [Ratio] 24.2 % High 11.5 - 15.0 % [facility] Hematocrit (Bld) [Volume fraction] 28.9 % Low 40.0 - 52.0 % [facility] Hemoglobin (Bld) [Mass/Vol] 7.9 g/dL Low 13.0 - 18.0 g/dL [facility] Interpretation and review of laboratory results Abnormal [facility] MCH (RBC) [Entitic mass] 22.7 pg Low 26. 0 - 34.0 pg [facility] MCHC (RBC) [Mass/Vol] 27.3 % Low 30.5 - 36.0 % [facility] MCV (RBC) [Entitic vol] 83 fL 77.0 - 99.0 fL [facility] Platelet mean volume (Bld) [Entitic vol] 9.2 fL 9.0 - 12.7 fL [facility] Platelets (Bld) [#/Vol] 313 10*3/uL 140 - 440 10*3/uL [facility] RBC (Bld) [#/Vol] 3.48 10*6/uL Low 4.40 - 5.9 0 10*6/uL [facility] WBC (Bld) [#/Vol] 13.8 10*3/uL High 3.6 - 10.7 10*3/uL [facility] CBC WITH AUTO DIFFERENTIALon 04-11-2025 Erythrocyte distribution width (RBC) [Ratio] 24.2 % High 11.5-15.0 [facility] Comment on above: Performed By: #### L [id number], [id number] ####Finishing Supervisor [employer]astic Sheets: UNA ARCE ([phone])[facility] ([facility])[address] [place] [address] Hematocrit (Bld) [Volume fraction] 28.9 % Low 40.0-52.0 [facility] Comment on above: Performed By: #### L [id number], [id number] ####Finishing Supervisor [employer] Sheets: UNA ARCE ([id number])[facility] ([facility])[address] Hemoglobin (Bld) [Mass/Vol] 7.9 g/dL Low 13.0-18.0 [facility] Comment on above: Performed By: #### L [id number], [id number] ####Finishing Supervisor [employer] Sheets: UNA ARCE ([id number])[facility] (SBHLAB)[address] MCH (RBC) [Entitic mass] 22.7 pg Low 26.0-34.0 [facility] Comment on above: Performed By: #### L [id number], [id number] ####Finishing Supervisor [employer]astic Sheets: UNA ARCE ([id number])[facility] (SB[facility]AB)[address] MCHC 27.3 % Low 30.5-36.0 [facility] Comment on above: Performed By: #### L [id number], [id number] ####Finishing Supervisor [employer] Sheets: UNA ARCE ([phone])[facility] S[facility]HEZCHRISTINAN (SBHLAB)[address] MCV (RBC) [Entitic vol] 83.0 fL Normal 77.0-99.0 [facility] Comment on above: Performed By: #### L [id number], [id number] ####Finishing Supervisor [employer]astic Sheets: UNA ARCE ([phone])[facility] (SBHLAB)[address] Platelet mean volume (Bld) [Entitic vol] 9.2 fL Normal 9.0-12.7 [facility] Comment on above: Performed By: #### L [id number], [id number] ####Finishing Supervisor [employer]astic Sheets: UNA ARCE ([phone])[facility] (SB[facility]AB)[address] Platelets (Bld) [#/Vol] 313 10*3/uL Normal 140-[address] [facility] Comment on above: Performed By: #### L [id number], [id number] ####Finishing Supervisor [employer]astic Sheets: UNA ARCE ([phone])[facility] (SBHLAB)[address] RBC (Bld) [#/Vol] 3.48 10*6/uL Low 4.40-5.90 [facility] Comment on above: Performed By: #### L [id number], [id number] ####Finishing Supervisor [employer]astic Sheets: UNA ARCE ([phone])[facility] [place] (SBHLAB)[address] WBC (Bld) [#/Vol] 13.8 10*3/uL High 3.6-10.7 [facility] Comment on above: Performed By: #### L [id number], [id number] ####Finishing Supervisor Plastic Sheets: UNA ARCE ([phone])[facility] BASHIRMarisol (SBHLAB)[address] COMPREHENSIVE METABOLIC PANE Anant 04-11-2025 Albumin [Mass/Vol] 2.4 g/dL Low 3.4-4.8 [facility] Comment on above: Performed By: #### L AB17, [id number], [id number] ####Finishing Supervisor [employer] Sheets: UNA ARCE ([id number])[facility] (SBHLAB)[address] ALP [Catalytic activity/Vol] 53 U/L Normal 40-150 [facility] Comment on above: Performed By: #### L AB17, [id number], [id number] ####Finishing Supervisor [employer] Sheets: UNA ARCE ([phone])[facility] (SBHLAB)[address] ALT [Catalytic activity/Vol] U/L Normal <40 [facility] Comment on above: Performed By: #### L AB17, [id number], [id number] ####Finishing Supervisor Plastic Sheets: UNA ARCE ([id number])[facility]ZCROWNPOINT [facility] FACILITYMarisol (SBHLAB)[address] Anion gap [Moles/Vol] 10 mmol/L Normal 3-13 [facility] Comment on above: Performed By: #### L AB17, [id number], [id number] ####Finishing Supervisor Plastic Sheets: UNA ARCE ([phone])[facility]TE BASHIRN (SBHLAB)[address] [place] [address] [place] AST [Catalytic activity/Vol] 18 U/L Normal <34 [facility] Comment on above: Performed By: #### L AB17, [id number], [id number] ####Finishing Supervisor Plastic Sheets: UNA ARCE ([phone])[facility] BASHIRN (SBHLAB)[address] Bilirubin [Mass/Vol] 0.7 mg/dL Normal <1.2 [facility] Comment on above: Performed By: #### L AB17, [id number], [id number] ####Finishing Supervisor Plastic Sheets: UNA ARCE ([phone])[facility] BASHIRN (SBHLAB)[address] Calcium [Mass/Vol] 8.1 mg/dL Low 8.8-10.0 [facility] Comment on above: Performed By: #### L AB17, [id number], [id number] ####Finishing Supervisor Plastic Sheets: UNA ARCE ([phone])[facility] BASHIRN (SBHLAB)[address] [place] [address] [place] Chloride [Moles/Vol] 94 mmol/L Low 98-107 [facility] Comment on above: Performed By: #### L AB17, [id number], [id number] ####Finishing Supervisor Plastic Sheets: UNA ARCE ([phone])[facility] BASHIRN (SBHLAB)[address] [place] [address] [place] CO2 [Moles/Vol] 35 mmol/L High 23-31 [facility] Comment on above: Performed By: #### L AB17, [id number], [id number] ####Finishing Supervisor Plastic Sheets: UNA ARCE ([phone])[facility] [place] (SBHLAB)[address] [place] [address] [place] Creatinine [Mass/Vol] 1.55 mg/dL High 0.72-1.25 [facility] Comment on above: Performed By: #### L AB17, [id number], [id number] ####Finishing Supervisor Plastic Sheets: UNA ARCE ([phone])[facility] (SBHLAB)[address] GLOMERULAR FILTRATION RATE ML/MIN/1.73 SQ M.PREDICTED 42.5 mL/min/1.73m*2 Low >60.0 [facility] Comment on above: Result Comment: Calc ulation based on the Chronic Kidney Disease Epidemiology Collaboration (CKD-EPI) equation refit without adjustment for race Performed By: #### L AB17, [id number], [id number] ####Finishing Supervisor Plastic Sheets: UNA ARCE ([phone])[facility] (SBHLAB)[address] Glucose [Mass/Vol] 103 mg/dL Normal 82-115 [facility] Comment on above: Performed By: #### L AB17, [id number], [id number] ####Finishing Supervisor Plastic Sheets: UNA ARCE ([phone])[facility] (SBHLAB)[address] Potassium [Moles/Vol] 3.6 mmol/L Normal 3.5-5.1 [facility] Comment on above: Result Comment: [facility] potassium values may be up to 0.5 mmol/L lower than serum values. Performed By: #### L AB17, [id number], [id number] ####Finishing Supervisor Plastic Sheets: UNA ARCE ([id number])[facility] (SBHLAB)[address] [place] [address] [place] Protein [Mass/Vol] 6.1 g/dL Low 6.4-8.3 [facility] Comment on above: Performed By: #### L AB17, [id number], [id number] ####Finishing Supervisor Plastic Sheets: UNA ARCE ([phone])[facility] (SBHLAB)[address] Sodium [Moles/Vol] 139 mmol/L Normal 136-145 [facility] Comment on above: Performed By: #### L AB17, [id number], VAQ799 ####Finishing Supervisor Plastic Sheets: UNA ARCE ([id number])[facility] (SBHLAB)[address] Urea nitrogen [Mass/Vol] 36 mg/dL High 9-23 [facility] Comment on above: Performed By: #### L AB17, [id number], [id number] ####Finishing Supervisor Plastic Sheets: UNA ARCE ([phone])[facility] (SBHLAB)[address] Comprehensive metabolic 1998 panelon 04-11-2025 Albumin [Mass/Vol] 2.4 g/dL Low 3.4 - 4.8 g/dL [facility] ALP [Catalytic activity/Vol] 53 U/L 40 - 150 U/L [facility] ALT [Catalytic activity/Vol] U/L NINF - 40 U/L [facility] Anion gap [Moles/Vol] 10 mmol/L 3 - 13 mmol/L [facility] AST [Catalytic activity/Vol] 18 U/L [facility] U/L [facility] Bilirubin [Mass/Vol] 0.7 mg/dL NINF - 1.2 mg/dL [facility] Calcium [Mass/Vol] 8.1 mg/dL Low 8.8 - 10. 0 mg/dL [facility] Chloride [Moles/Vol] 94 mmol/L Low 98 - 10 7 mmol/L [facility] CO2 [Moles/Vol] 35 mmol/L High 23 - 31 mmol/L [facility] Creatinine [Mass/Vol] 1.55 mg/dL High 0.72 - 1.25 mg/dL [facility] GFR/1.73 sq M.predicted (S/P/Bld) [Vol rate/Area] 42.5 mL/min Low - PINF [facility] Glucose [Mass/Vol] 103 mg/dL 82 - 115 mg/dL [facility] Interpretation and review of laboratory results Abnormal [facility] Potassium [Moles/Vol] 3.6 mmol/L 3.5 - 5.1 mmol/L [facility] Protein [Mass/Vol] 6.1 g/dL Low 6.4 - 8.3 g/dL [facility] Sodium [Moles/Vol] 139 mmol/L 136 - 145 mmol/L [facility] Urea nitrogen [Mass/Vol] 36 mg/dL High 9 - 23 mg/d L [facility] Laboratory - Chemistry and C hemistry - challengeon 04-11-2025 Magnesium [Mass/Vol] 1.7 mg/dL 1.6 - 2 .6 mg/dL [facility] Laboratory - Hematology and Cell countson 04-11-2025 Anisocytosis Ql (Bld) Moderate Abnormal (none) [facility] Basophilic stippling LM Ql (Bld) Slight Abnormal (none) [facility] Basophils (Bld) [#/Vol] 0.1 10*3/uL 0.0 - 0.2 10*3/uL [facility] Basophils/100 WBC (Bld) 1 % 0 - 2 % [facility] Dacrocytes LM Ql (Bld) Rare Abnormal (none) [facility] Eosinophils (Bld) [#/Vol] 0.1 10*3/uL 0.0 - 0.5 10*3/uL [facility] Eosinophils/100 WBC (Bld) 1 % 0 - 6 % [facility] Hypochromia Ql (Bld) Slight Abnormal (none) [facility] Lymphocytes (Bld) [#/Vol] 1.4 10*3/uL 1.0 - 4.3 10*3/uL [facility] Lymphocytes/100 WBC (Bld) 10 % Low 15 - 45 % [facility] Monocytes (Bld) [#/Vol] 1.8 10*3/uL High 0.0 - 0.9 10*3/uL [facility] Monocytes/100 WBC (Bld) 13 % 5 - 13 % [facility] Neutrophils (Bld) [#/Vol] 10.5 10*3/uL High 1.8 - 7.5 10*3/uL [facility] Ovalocytes LM Ql (Bld) Slight Abnormal (none) [facility] Poikilocytosis LM Ql (Bld) Slight Abnormal (none) [facility] Polychromasia LM Ql (Bld) Slight Abnormal (none) [facility] RBC morphology finding Nom (Bld) abnormal [facility] Segmented neutrophils/100 WBC (Bld) 76 % 38 - 82 % [facility] Stomatocytes LM Ql (Bld) Slight Abnormal (none) [facility] Target cells LM Ql (Bld) Slight Abnormal (none) [facility] MAGNESIUMon 04-11-2025 Magnesium [Mass/Vol] 1.7 mg/dL Normal 1.6-2.6 [facility] Comment on above: Result Comment: ORDE R COMMENTS:Higher values can be expected in females during menses. Performed By: #### L AB17, [id number], [id number] ####Finishing Supervisor [employer]astic Sheets: UNA ARCE ([phone])[facility] [place] (SB[facility]AB)[address] MANUAL DIFFERENTIAL (CELLAVI BANDAR)on 04-11-2025 ANISOCYTOSIS PRESENCE IN BLOOD BY LIGHT MICROSCOPY Moderate Abnormal (none) [facility] Comment on above: Performed By: #### L [id number], [id number] ####Finishing Supervisor Plastic Sheets: UNA ARCE ([id number])[facility] [place] (SBHLAB)[address] BAND NEUTROPHILS TOTAL PER COUNTED LEUKOCYTES BY MANUAL COUNT Normal [facility] Comment on above: Performed By: #### L [id number], [id number] ####Finishing Supervisor Plastic Sheets: UNA AREC ([id number])[facility] [place] (SB[facility]AB)[address] BASOPHILIC STIPPLING PRESENCE IN BLOOD BY LIGHT MICROSCOPY Slight Abnormal (none) [facility] Comment on above: Performed By: #### L [id number], [id number] ####Finishing Supervisor Plastic Sheets: UNA ARCE ([id number])[facility] [place] (SB[facility])[address] BASOPHILS (10*3/UL) IN BLOOD-CELLAVISION 0.1 10*3/uL Normal 0.0-0.2 [facility] Comment on above: Performed By: #### L [id number], [id number] ####Finishing Supervisor [employer]astic Sheets: UNA ARCE ([phone])[facility] [place] (SB[facility])[address] BASOPHILS TOTAL PER COUNTED LEUKOCYTES BY MANUAL COUNT 1 Normal [facility] Comment on above: Performed By: #### L [id number], [id number] ####Finishing Supervisor Plastic Sheets: UNA ARCE ([phone])[facility] [place] (SB[facility]AB)[address] [place] [address] [place] BASOPHILS/100 LEUKOCYTES IN BLOOD-CELLAVISION 1 % Normal 0-2 [facility] Comment on above: Performed By: #### L [id number], [id number] ####Finishing Supervisor [employer]astic Sheets: UNA ARCE ([phone])[facility] [place] (SBHLAB)[address] [place] [address] [place] BLASTS TOTAL PER COUNTED LEUKOCYTES BY MANUAL COUNT Normal [facility] Comment on above: Performed By: #### L [id number], [id number] ####Finishing Supervisor [employer]astic Sheets: UNA MOHRCER ([phone])[facility] [place] (SBHLAB)[address] [place] [address] [place] DACROCYTES PRESENCE IN BLOOD BY LIGHT MICROSCOPY Rare Abnormal (none) [facility] Comment on above: Performed By: #### L [id number], [id number] ####Finishing Supervisor [employer]astic Sheets: UNA ARCE ([phone])[facility] [place] (SB[facility])[address] [place] [address] [place] EOSINOPHILS (10*3/UL) IN BLOOD-CELLAVISION 0.1 10*3/uL Normal 0.0-0.[address] [facility] Comment on above: Performed By: #### L [id number], [id number] ####Finishing Supervisor [employer]astic Sheets: UNA ARCE ([phone])[facility] [place] (SB[facility])[address] [place] [address] [place] EOSINOPHILS TOTAL PER COUNTED LEUKOCYTES BY MANUAL COUNT 1 Normal 0-[address] [facility] Comment on above: Performed By: #### L [id number], [id number] ####Finishing Supervisor [employer]astic Sheets: UNA ARCE ([id number])[facility] [place] (SB[facility])[address] [place] [address] [place] EOSINOPHILS/100 LEUKOCYTES IN BLOOD-CELLAVISION 1 % Normal 0-[address] [facility] Comment on above: Performed By: #### L [id number], [id number] ####Finishing Supervisor [employer]astic Sheets: UNA ARCE ([id number])[facility] [place] ([facility])[address] HYPOCHROMIA (PRESENCE) IN BLOOD BY LIGHT MICROSCOPY Slight Abnormal (none) [facility] Comment on above: Performed By: #### L [id number], [id number] ####Finishing Supervisor [employer]astic Sheets: UNA ARCE ([phone])[facility] [place] ([facility])[address] [place] [address] [place] LYMPHOCYTES (10*3/UL) IN BLOOD-CELLAVISION 1.4 10*3/uL Normal 1.0-4.[address] [facility] Comment on above: Performed By: #### L [id number], [id number] ####Finishing Supervisor [employer]astic Sheets: UNA ARCE ([phone])[facility] [place] (SB[facility])[address] LYMPHOCYTES TOTAL PER COUNTED LEUKOCYTES BY MANUAL COUNT 10 Normal [facility] Comment on above: Performed By: #### L [id number], [id number] ####Finishing Supervisor Plastic Sheets: UNA ARCE ([id number])[facility] (SBHLAB)[address] [place] [address] [place] LYMPHOCYTES/100 LEUKOCYTES IN BLOOD-CELLAVISION 10 % Low 15-[address] [facility] Comment on above: Performed By: #### L [id number], [id number] ####Finishing Supervisor Plastic Sheets: UNA ARCE ([phone])[facility] (SBHLAB)[address] [place] [address] [place] METAMYELOCYTES TOTAL PER COUNTED LEUKOCYTES BY MANUAL COUNT Normal [facility] Comment on above: Performed By: #### L [id number], [id number] ####Finishing Supervisor [employer]astic Sheets: UNA ARCE ([phone])[facility] [place] ([facility])[address] [place] [address] [place] MONOCYTES (10*3/UL) IN BLOOD-CELLAVISION 1.8 10*3/uL High 0.0-0.[address] [facility] Comment on above: Performed By: #### L [id number], [id number] ####Finishing Supervisor [employer]astic Sheets: UNA ARCE ([phone])[facility] [place] (SBHLAB)[address] [place] [address] [place] MONOCYTES TOTAL PER COUNTED LEUKOCYTES BY MANUAL COUNT [address] [facility] Comment on above: Performed By: #### L [id number], [id number] ####Finishing Supervisor [employer]astic Sheets: UNA MOHRCER ([phone])[facility] [place] (SBHLAB)[address] [place] [address] [place] MONOCYTES/100 LEUKOCYTES IN BLOOD-LUCIANA 13 % Normal 5-[address] [facility] Comment on above: Performed By: #### L [id number], [id number] ####Finishing Supervisor [employer]astic Sheets: UNA MOHRCER ([id number])[facility] [place] ([facility])[address] MYELOCYTES COUNTED BY MANUAL COUNT Normal [facility] Comment on above: Performed By: #### L [id number], [id number] ####Finishing Supervisor [employer]astic Sheets: UNA ARCE ([phone])[facility] [place] (SBHLAB)[address] [place] [address] [place] NEUTROPHILS TOTAL PER COUNTED LEUKOCYTES BY MANUAL COUNT [address] [facility] Comment on above: Performed By: #### L [id number], [id number] ####Finishing Supervisor [employer] Sheets: UNA ARCE ([id number])[facility] [place] ([facility])[address] [place] [address] [place] OVALOCYTES PRESENCE IN BLOOD BY LIGHT MICROSCOPY Slight Abnormal (none) [facility] Comment on above: Performed By: #### L [id number], [id number] ####Finishing Supervisor [employer] Sheets: UNA MOHRCER ([phone])[facility] [place] (SBHLAB)[address] [place] [address] [place] POIKILOCYTOSIS (PRESENCE) IN BLOOD BY LIGHT MICROSCOPY Slight Abnormal (none) [facility] Comment on above: Performed By: #### L [id number], [id number] ####Finishing Supervisor [employer]astic Sheets: UNA ARCE ([id number])[facility] [place] (SBHLAB)[address] [place] [address] [place] POLYCHROMASIA IN BLOOD BY LIGHT MICROSCOPY Slight Abnormal (none) [facility] Comment on above: Performed By: #### L [id number], [id number] ####Finishing Supervisor [employer]astic Sheets: UNA ARCE ([phone])[facility] [place] ([facility])[address] [place] [address] [place] PROMYELOCYTES TOTAL PER COUNTED LEUKOCYTES BY MANUAL COUNT Normal [facility] Comment on above: Performed By: #### L [id number], [id number] ####Finishing Supervisor [employer]astic Sheets: UNA ARCE ([phone])[facility] [place] ([facility])[address] [place] [address] [place] RBC MORPHOLOGY IN BLOOD abnormal Normal [facility] Comment on above: Performed By: #### L [id number], [id number] ####Finishing Supervisor [employer]astic Sheets: UNA ARCE ([phone])[facility] [place] ([facility])[address] [place] [address] [place] SEGMENTED NEUTROPHILS (10*3/UL) IN BLOOD-CELLAVISION 10.5 10*3/uL High 1.8-7.5 [facility] Comment on above: Performed By: #### L [id number], [id number] ####Finishing Supervisor [employer]astic Sheets: UNA ARCE ([id number])[facility] [place] ([facility])[address] [place] [address] [place] SEGMENTED NEUTROPHILS/100 LEUKOCYTES-CE 76 % Normal 38-82 [facility] Comment on above: Performed By: #### L [id number], [id number] ####Finishing Supervisor [employer]astic Sheets: UNA ARCE ([id number])[facility] [place] ([facility])[address] [place] [address] [place] STOMATOCYTES IN BLOOD BY LIGHT MICROSCOPY Slight Abnormal (none) [facility] Comment on above: Performed By: #### L [id number], [id number] ####Finishing Supervisor [employer]astic Sheets: UNA ARCE ([id number])[facility] [place] ([facility])[address] TARGET CELLS IN BLOOD BY LIGHT MICROSCOPY Slight Abnormal (none) [facility] Comment on above: Performed By: #### L [id number], [id number] ####Finishing Supervisor [employer]astic Sheets: UNA ARCE ([phone])[facility] (SBHLAB)[address] UNCLASSIFIED CELLS TOTAL PER COUNTED LEUKOCYTES BY MANUAL COUNT Normal [facility] Comment on above: Performed By: #### L [id number], [id number] ####Finishing Supervisor [employer]astic Sheets: UNA ARCE ([id number])[facility] ([facility])[address] VARIANT LYMPHOCYTES TOTAL PER COUNTED LEUKOCYTES BY MANUAL COUNT Normal [facility] Comment on above: Performed By: #### L [id number], [id number] ####Finishing Supervisor [employer]astic Sheets: UNA ARCE ([id number])[facility] (SBHLAB)[address] Magnesium [Mass/Vol]on 04-11 [facility] No Panel Informationon 04-11 Basophils Manual 1 [facility] Eosinophils Manual 1 0 - 1 [facility] Interpretation and review of laboratory results Abnormal [facility] Lymphocytes Manual 10 [facility] Monocytes Manual 13 [facility] Neutrophils Manual 79 [facility] Interpretation and review of laboratory results Normal [facility] PHOSPHORUSon 04-11-2025 Phosphate [Mass/Vol] 2.5 mg/dL Normal 2.3-4.7 [facility] Comment on above: Performed By: #### L AB17, [id number], [id number] ####Finishing Supervisor [employer]astic Sheets: UNA ARCE ([phone])[facility] (SBHLAB)[address] [place] [address] [place] Phosphate [Moles/Vol]on Phosphate [Mass/Vol] 2.5 mg/dL 2.3 - 4 .7 mg/dL [facility] Progress Noteon 04-11-2025 Progress Note [facility] Progress [facility] Normal [facility] Progress Note Normal [facility] XR Chest Single viewon 04-11 [facility] Radiology Study observation (narrative) Lynette ander XR Chest Single viewOrdered By: Katalina Corona on 04-11-2025 [facility] Work Phone: [phone] 04-10-2025 [id number] Normal [facility] CBC W Auto Differential pane l (Bld)on 04-10-2025 Erythrocyte distribution width (RBC) [Ratio] 22.9 % High 11.5 - 15.0 % [facility] Hematocrit (Bld) [Volume fraction] 26.1 % Low 40.0 - 52.0 % [facility] Hemoglobin (Bld) [Mass/Vol] 7.2 g/dL Low 13.0 - 18.0 g/dL [facility] Interpretation and review of laboratory results Abnormal [facility] MCH (RBC) [Entitic mass] 22.6 pg Low 26. 0 - 34.0 pg [facility] MCHC (RBC) [Mass/Vol] 27.6 % Low 30.5 - 36.0 % [facility] MCV (RBC) [Entitic vol] 82.1 fL 77.0 - 99.0 fL [facility] Platelet mean volume (Bld) [Entitic vol] 9.1 fL 9.0 - 12.7 fL [facility] Platelets (Bld) [#/Vol] 294 10*3/uL 140 - 440 10*3/uL [facility] RBC (Bld) [#/Vol] 3.18 10*6/uL Low 4.40 - 5.9 0 10*6/uL [facility] WBC (Bld) [#/Vol] 12.4 10*3/uL High 3.6 - 10.7 10*3/uL [facility] CBC WITH AUTO DIFFERENTIALon 04-10-2025 Erythrocyte distribution width (RBC) [Ratio] 22.9 % High 11.5-15.0 [facility] Comment on above: Performed By: #### L [id number], [id number] ####Finishing Supervisor [employer]astic Sheets: UNA ARCE ([phone])[facility] ESCOTO (SBAB)[address] Hematocrit (Bld) [Volume fraction] 26.1 % Low 40.0-52.[address] [facility] Comment on above: Performed By: #### L [id number], [id number] ####Finishing Supervisor [employer] Sheets: UNA ARCE ([id number])LYNETTE SANCHEZLUIS (SBHLAB)[address] Hemoglobin (Bld) [Mass/Vol] 7.2 g/dL Low 13.0-18.0 [facility] Comment on above: Performed By: #### L [id number], [id number] ####Finishing Supervisor [employer] Sheets: UNA ARCE ([phone])[facility] BAR[place]IS (SBHLAB)[address] MCH (RBC) [Entitic mass] 22.6 pg Low 26.0-34.0 [facility] Comment on above: Performed By: #### L [id number], [id number] ####Finishing Supervisor [employer]: UNA ARCE ([id number])[facility] SANCHEZLUIS (SBHLAB)[address] MCHC 27.6 % Low 30.5-36.[address] [facility] Comment on above: Performed By: #### L [id number], [id number] ####Finishing Supervisor [employer] Sheets: UNA ARCE ([id number])[facility]ITALnAgel SANCHEZLUIS (SBHLAB)[address] MCV (RBC) [Entitic vol] 82.1 fL Normal 77.0-99.0 [facility] Comment on above: Performed By: #### L [id number], [id number] ####Finishing Supervisor [employer] Sheets: UNA ARCE ([id number])[facility]ITALAngel BARBCROWNPOINT HEALTH CARE FACILITYMarisol (SBHLAB)[address] Platelet mean volume (Bld) [Entitic vol] 9.1 fL Normal 9.0-12.[address] [facility] Comment on above: Performed By: #### L [id number], [id number] ####Finishing Supervisor [employer] Sheets: UNA ARCE ([phone])LYNETTE SANCHEZCHRISTINAN (SBHLAB)[address] Platelets (Bld) [#/Vol] 294 10*3/uL Normal 140-440 [facility] Comment on above: Performed By: #### L [id number], [id number] ####Finishing Supervisor [employer] Sheets: UNA ARCE ([phone])[facility]A MCKAYN (SBHLAB)[address] RBC (Bld) [#/Vol] 3.18 10*6/uL Low 4.40-5.90 [facility] Comment on above: Performed By: #### L [id number], [id number] ####Finishing Supervisor Plastic Sheets: UNA ARCE ([id number])MONISHAA [place] (SBHLAB)[address] WBC (Bld) [#/Vol] 12.4 10*3/uL High 3.6-10.7 [facility] Comment on above: Performed By: #### L [id number], [id number] ####Finishing Supervisor [employer] Sheets: UNA ARCE ([id number])[facility]ITALAngel BASHIRN (SBHLAB)[address] COMPREHENSIVE METABOLIC PANE Anant 04-10-2025 Albumin [Mass/Vol] 2.2 g/dL Low 3.4-4.8 [facility] Comment on above: Performed By: #### L ABTerrance, LAB17, [id number] ####Finishing Supervisor [employer] Sheets: UNA ARCE ([id number])[facility] [place] (SBHLAB)[address] ALP [Catalytic activity/Vol] 50 U/L Normal 40-150 [facility] Comment on above: Performed By: #### L [id number], LAB17, [id number] ####Finishing Supervisor [employer] Sheets: UNA ARCE ([id number])[facility] [place] (SBHLAB)[address] ALT [Catalytic activity/Vol] U/L Normal <40 [facility] Comment on above: Performed By: #### L ABTerrance, LAB17, [id number] ####Finishing Supervisor Plastic Sheets: UNA ARCE ([phone])[facility] [place] (SBHLAB)[address] Anion gap [Moles/Vol] 12 mmol/L Normal 3-13 [facility] Comment on above: Performed By: #### Gilbert ABTerrance, LAB17, [id number] ####Finishing Supervisor Plastic Sheets: UNA ARCE ([phone])[facility] [place] (SBHLAB)[address] AST [Catalytic activity/Vol] 16 U/L Normal <34 [facility] Comment on above: Performed By: #### Gilbert ABTerrance, LAB17, [id number] ####Finishing Supervisor Plastic Sheets: UNA ARCE ([phone])[facility]A [place] (SBHLAB)[address] Bilirubin [Mass/Vol] 0.6 mg/dL Normal <1.2 [facility] Comment on above: Performed By: #### Gilbert RAMSEY, LAB17, [id number] ####Finishing Supervisor Plastic Sheets: UNA ARCE ([phone])[facility] [place] (SBHLAB)[address] Calcium [Mass/Vol] 8.0 mg/dL Low 8.8-10.0 [facility] Comment on above: Performed By: #### Gilbert RAMSEY, LAB17, [id number] ####Finishing Supervisor Plastic Sheets: UNA ARCE ([phone])[facility] [place] (SBHLAB)[address] [place] [address] [place] Chloride [Moles/Vol] 95 mmol/L Low 98-107 [facility] Comment on above: Performed By: #### L ABTerrance, LAB17, [id number] ####Finishing Supervisor Plastic Sheets: UNA ARCE ([id number])[facility] [place] (SBHLAB)[address] [place] [address] [place] CO2 [Moles/Vol] 35 mmol/L High 23-31 [facility] Comment on above: Performed By: #### L AB113, LAB17, [id number] ####Finishing Supervisor Plastic Sheets: UNA ARCE ([id number])[facility]ITALAngel BASHIRN (SBHLAB)[address] Creatinine [Mass/Vol] 1.65 mg/dL High 0.72-1.25 [facility] Comment on above: Performed By: #### L ABTerrance, LAB17, [id number] ####Finishing Supervisor Plastic Sheets: UNA ARCE ([id number])[facility]ITALAngel BASHIRN (SBHLAB)[address] GLOMERULAR FILTRATION RATE ML/MIN/1.73 SQ M.PREDICTED 39.4 mL/min/1.73m*2 Low >60.0 [facility] Comment on above: Result Comment: Calc ulation based on the Chronic Kidney Disease Epidemiology Collaboration (CKD-EPI) equation refit without adjustment for race Performed By: #### Gilbert ABTerrance, LAB17, [id number] ####Finishing Supervisor Plastic Sheets: UNA ARCE ([phone])[facility] BASHIRN (SBHLAB)[address] Glucose [Mass/Vol] 98 mg/dL Normal 82-115 [facility] Comment on above: Performed By: #### Gilbert AB113, LAB17, [id number] ####Finishing Supervisor Plastic Sheets: UNA ARCE ([id number])[facility]ITALAngel SANCHEZCHRISTINAN (SBHLAB)[address] [place] [address] [place] Potassium [Moles/Vol] 3.2 mmol/L Low 3.5-5.1 [facility] Comment on above: Result Comment: [facility] potassium values may be up to 0.5 mmol/L lower than serum values. Performed By: #### L AB113, LAB17, [id number] ####Finishing Supervisor Plastic Sheets: UNA ARCE ([id number])[facility]ITALAngel [place]ERT[place] (SBHLAB)[address] Protein [Mass/Vol] 5.5 g/dL Low 6.4-8.3 [facility] Comment on above: Performed By: #### L AB113, LAB17, [id number] ####Finishing Supervisor Plastic Sheets: UNA YAZMIN ([id number])[facility] ESCOTO (SBHLAB)[address] Sodium [Moles/Vol] 142 mmol/L Normal 136-145 [facility] Comment on above: Performed By: #### Gilbert ABTerrance, LAB17, [id number] ####Finishing Supervisor Plastic Sheets: UNA YAZMIN ([id number])[facility]ITALAngel SANCHEZCROWNPOINT HEALTH CARE FACILITYN (SBHLAB)[address] Urea nitrogen [Mass/Vol] 32 mg/dL High 9-23 [facility] Comment on above: Performed By: #### Gilbert RAMSEY, LAB17, [id number] ####Finishing Supervisor Plastic Sheets: UNA ARCE ([phone])[facility] (SBHLAB)[address] Comprehensive metabolic 1998 panelon 04-10-2025 Albumin [Mass/Vol] 2.2 g/dL Low 3.4 - 4.8 g/dL [facility] ALP [Catalytic activity/Vol] 50 U/L 40 - 150 U/L [facility] ALT [Catalytic activity/Vol] U/L [facility]L [facility] Anion gap [Moles/Vol] 12 mmol/L 3 - 13 mmol/L [facility] AST [Catalytic activity/Vol] 16 U/L [facility] - [facility] U/L [facility] Bilirubin [Mass/Vol] 0.6 mg/dL NINF - 1.2 mg/dL [facility] Calcium [Mass/Vol] 8 mg/dL Low 8.8 - 10. 0 mg/dL [facility] Chloride [Moles/Vol] 95 mmol/L Low 98 - 10 7 mmol/L [facility] CO2 [Moles/Vol] 35 mmol/L High 23 - 31 mmol/L [facility] Creatinine [Mass/Vol] 1.65 mg/dL High 0.72 - 1.25 mg/dL [facility] GFR/1.73 sq M.predicted (S/P/Bld) [Vol rate/Area] 39.4 mL/min Low - PINF [facility] Glucose [Mass/Vol] 98 mg/dL 82 - 115 mg/dL [facility] Interpretation and review of laboratory results Abnormal [facility] Potassium [Moles/Vol] 3.2 mmol/L Low 3.5 - 5.1 mmol/L [facility] Protein [Mass/Vol] 5.5 g/dL Low 6.4 - 8.3 g/dL [facility] Sodium [Moles/Vol] 142 mmol/L 136 - 145 mmol/L [facility] Urea nitrogen [Mass/Vol] 32 mg/dL High 9 - 23 mg/d L [facility] Laboratory - Chemistry and C hemistry - challengeon 04-10-2025 Magnesium [Mass/Vol] 1.7 mg/dL 1.6 - 2 .6 mg/dL [facility] Laboratory - Hematology and Cell countson 04-10-2025 Anisocytosis Ql (Bld) Slight Abnormal (none) [facility] Band form neutrophils (Bld) [#/Vol] 0.2 10*3/uL High NINF - 0.0 10*3/uL [facility] Band form neutrophils/100 WBC (Bld) 2 % High NINF - 0 % [facility] Basophils (Bld) [#/Vol] 0.5 10*3/uL High 0.0 - 0.2 10*3/uL [facility] Basophils/100 WBC (Bld) 4 % High 0 - 2 % [facility] Eosinophils (Bld) [#/Vol] 0.5 10*3/uL 0.0 - 0.5 10*3/uL [facility] Eosinophils/100 WBC (Bld) 4 % 0 - 6 % [facility] Lymphocytes (Bld) [#/Vol] 0.9 10*3/uL Low 1.0 - 4.3 10*3/uL [facility] Lymphocytes/100 WBC (Bld) 7 % Low 15 - 45 % [facility] Monocytes (Bld) [#/Vol] 0.5 10*3/uL 0.0 - 0.9 10*3/uL [facility] Monocytes/100 WBC (Bld) 4 % Low 5 - 13 % [facility] Myelocytes (Bld) [#/Vol] 0.1 10*3/uL High SELENE F - 0.0 10*3/uL [facility] Myelocytes/100 WBC (Bld) 1 % High NINF - 0 % [facility] Neutrophils (Bld) [#/Vol] 9.9 10*3/uL High 1.8 - 7.5 10*3/uL [facility] Poikilocytosis LM Ql (Bld) Slight Abnormal (none) [facility] RBC morphology finding Nom (Bld) abnormal [facility] Segmented neutrophils/100 WBC (Bld) 78 % 38 - 82 % [facility] Stomatocytes LM Ql (Bld) Moderate Abnormal (none) [facility] MAGNESIUMon 04-10-2025 Magnesium [Mass/Vol] 1.7 mg/dL Normal 1.6-2.6 [facility] Comment on above: Result Comment: YARELI R COMMENTS:Higher values can be expected in females during menses. Performed By: #### L AB113, LAB17, [id number] ####Finishing Supervisor Plastic Sheets: UNA ARCE ([id number])[facility] ([facility])[address] [place] [address] MANUAL DIFFERENTIAL (CELLAVI BANDAR)on 04-10-2025 ANISOCYTOSIS PRESENCE IN BLOOD BY LIGHT MICROSCOPY Slight Abnormal (none) [facility] Comment on above: Performed By: #### L [id number], [id number] ####Finishing Supervisor Plastic Sheets: UNA ARCE ([id number])[facility] [place] [address] BAND NEUTROPHILS TOTAL PER COUNTED LEUKOCYTES BY MANUAL COUNT 2 Normal [facility] Comment on above: Performed By: #### L [id number], [id number] ####Finishing Supervisor Plastic Sheets: UNA ARCE ([id number])[facility] BARBCROWNPOINT HEALTH CARE FACILITYN ([facility])[address] [place] [address] [place] BANDS (10*3/UL) IN BLOOD-CELLAVISION 0.2 10*3/uL High <=0.0 [facility] Comment on above: Performed By: #### L [id number], [id number] ####Finishing Supervisor Plastic Sheets: UNA ARCE ([id number])[facility] ([facility])[address] [place] [address] [place] BASOPHILS (10*3/UL) IN BLOOD-CELLAVISION 0.5 10*3/uL High 0.0-0.[address] [facility] Comment on above: Performed By: #### L [id number], [id number] ####Finishing Supervisor Plastic Sheets: UNA ARCE ([id number])[facility] [place] (SBHLAB)[address] [place] [address] [place] BASOPHILS TOTAL PER COUNTED LEUKOCYTES BY MANUAL COUNT 4 Normal [facility] Comment on above: Performed By: #### L [id number], [id number] ####Finishing Supervisor Plastic Sheets: UNA ARCE ([id number])[facility] [place] (SBHLAB)[address] [place] [address] [place] BASOPHILS/100 LEUKOCYTES IN BLOOD-CELLAVISION 4 % High 0-2 [facility] Comment on above: Performed By: #### L [id number], [id number] ####Finishing Supervisor Plastic Sheets: UNA ARCE ([phone])[facility] [place] (SBHLAB)[address] BLASTS TOTAL PER COUNTED LEUKOCYTES BY MANUAL COUNT [facility] Comment on above: Performed By: #### L [id number], [id number] ####Finishing Supervisor Plastic Sheets: UNA ARCE ([id number])[facility] [place] (SBHLAB)[address] [place] [address] [place] EOSINOPHILS (10*3/UL) IN BLOOD-CELLAVISION 0.5 10*3/uL Normal 0.0-0.[address] [facility] Comment on above: Performed By: #### L [id number], [id number] ####Finishing Supervisor Plastic Sheets: UNA ARCE ([phone])[facility] [place] (SBHLAB)[address] [place] [address] [place] EOSINOPHILS TOTAL PER COUNTED LEUKOCYTES BY MANUAL COUNT High 0-[address] [facility] Comment on above: Performed By: #### L [id number], [id number] ####Finishing Supervisor Plastic Sheets: UNA ARCE ([id number])[facility] [place] (SBHLAB)[address] [place] [address] [place] EOSINOPHILS/100 LEUKOCYTES IN BLOOD-CELLAVISION 4 % Normal 0-[address] [facility] Comment on above: Performed By: #### L [id number], [id number] ####Finishing Supervisor Plastic Sheets: UNA ARCE ([phone])[facility] [place] (SBHLAB)[address] LYMPHOCYTES (10*3/UL) IN BLOOD-CELLAVISION 0.9 10*3/uL Low 1.0-4.[address] [facility] Comment on above: Performed By: #### L [id number], [id number] ####Finishing Supervisor Plastic Sheets: UNA ARCE ([phone])[facility] [place] (SBHLAB)[address] LYMPHOCYTES TOTAL PER COUNTED LEUKOCYTES BY MANUAL COUNT 7 Normal [facility] Comment on above: Performed By: #### L [id number], [id number] ####Finishing Supervisor Plastic Sheets: UNA ARCE ([id number])[facility] [place] (SBHLAB)[address] [place] [address] [place] LYMPHOCYTES/100 LEUKOCYTES IN BLOOD-CELLAVISION 7 % Low 15-[address] [facility] Comment on above: Performed By: #### L [id number], [id number] ####Finishing Supervisor Plastic Sheets: UNA ARCE ([phone])[facility] BARBCROWNPOINT HEALTH CARE FACILITYN (SBHLAB)[address] METAMYELOCYTES TOTAL PER COUNTED LEUKOCYTES BY MANUAL COUNT [facility] Comment on above: Performed By: #### L [id number], [id number] ####Finishing Supervisor Plastic Sheets: UNA ARCE ([id number])[facility] [place] (SBHLAB)[address] [place] [address] [place] MONOCYTES (10*3/UL) IN BLOOD-CELLAVISION 0.5 10*3/uL Normal 0.0-0.[address] [facility] Comment on above: Performed By: #### L [id number], [id number] ####Finishing Supervisor Plastic Sheets: UNA ARCE ([phone])[facility] [place] (SBHLAB)[address] [place] [address] [place] MONOCYTES TOTAL PER COUNTED LEUKOCYTES BY MANUAL COUNT [address] [facility] Comment on above: Performed By: #### L [id number], [id number] ####Finishing Supervisor Plastic Sheets: UNA ARCE ([phone])[facility] [place] (SBHLAB)[address] [place] [address] [place] MONOCYTES/100 LEUKOCYTES IN BLOOD-LUCIANA 4 % Low 5-[address] [facility] Comment on above: Performed By: #### L [id number], [id number] ####Finishing Supervisor Plastic Sheets: UNA ARCE ([phone])[facility] [place] (SBHLAB)[address] [place] [address] [place] MYELOCYTES (10*3/UL) IN BLOOD-CELLAVISION 0.1 10*3/uL High <=0.[address] [facility] Comment on above: Performed By: #### L [id number], [id number] ####Finishing Supervisor Plastic Sheets: UNA ARCE ([id number])[facility] [place] (SBHLAB)[address] [place] [address] [place] MYELOCYTES COUNTED BY MANUAL COUNT [address] [facility] Comment on above: Performed By: #### L [id number], [id number] ####Finishing Supervisor Plastic Sheets: UNA ARCE ([id number])[facility] [place] (SB[facility])[address] [place] [address] [place] MYELOCYTES/100 LEUKOCYTES IN BLOOD-CELLAVISION 1 % High <=[address] [facility] Comment on above: Performed By: #### L [id number], [id number] ####Finishing Supervisor [employer]astic Sheets: UNA ARCE ([id number])[facility] [place] (SBHLAB)[address] [place] [address] [place] NEUTROPHILS BAND FORM/100 LEUKOCYTES IN BLOOD-CELLAVISI 2 % High <=[address] [facility] Comment on above: Performed By: #### L [id number], [id number] ####Finishing Supervisor Plastic Sheets: UNA ARCE ([phone])[facility] [place] (SBHLAB)[address] [place] [address] [place] NEUTROPHILS TOTAL PER COUNTED LEUKOCYTES BY MANUAL COUNT 79 Normal [facility] Comment on above: Performed By: #### L [id number], [id number] ####Finishing Supervisor Plastic Sheets: UNA ARCE ([id number])[facility] [place] (SB[facility])[address] [place] [address] [place] POIKILOCYTOSIS (PRESENCE) IN BLOOD BY LIGHT MICROSCOPY Slight Abnormal (none) [facility] Comment on above: Performed By: #### L [id number], [id number] ####Finishing Supervisor Plastic Sheets: UNA ARCE ([phone])[facility] [place] (SB[facility])[address] PROMYELOCYTES TOTAL PER COUNTED LEUKOCYTES BY MANUAL COUNT Normal [facility] Comment on above: Performed By: #### L [id number], [id number] ####Finishing Supervisor Plastic Sheets: UNA ARCE ([id number])[facility] [place] (SB[facility])[address] [place] [address] [place] RBC MORPHOLOGY IN BLOOD abnormal Normal [facility] Comment on above: Performed By: #### L [id number], [id number] ####Finishing Supervisor Plastic Sheets: UNA ARCE ([id number])[facility] [place] ([facility])[address] [place] [address] [place] SEGMENTED NEUTROPHILS (10*3/UL) IN BLOOD-CELLAVISION 9.9 10*3/uL High 1.8-7.5 [facility] Comment on above: Performed By: #### L [id number], [id number] ####Finishing Supervisor Plastic Sheets: UNA ARCE ([id number])[facility] [place] ([facility])[address] [place] [address] [place] SEGMENTED NEUTROPHILS/100 LEUKOCYTES-CE 78 % Normal 38-82 [facility] Comment on above: Performed By: #### L [id number], [id number] ####Finishing Supervisor Plastic Sheets: UNA ARCE ([id number])[facility] [place] ([facility])[address] [place] [address] [place] STOMATOCYTES IN BLOOD BY LIGHT MICROSCOPY Moderate Abnormal (none) [facility] Comment on above: Performed By: #### L [id number], [id number] ####Finishing Supervisor Plastic Sheets: UNA ARCE ([id number])[facility]ITALAngel [facility] (SBHLAB)[address] UNCLASSIFIED CELLS TOTAL PER COUNTED LEUKOCYTES BY MANUAL COUNT Normal [facility] Comment on above: Performed By: #### L [id number], [id number] ####Finishing Supervisor Plastic Sheets: UNA ARCE ([id number])[facility] (HLAB)[address] VARIANT LYMPHOCYTES TOTAL PER COUNTED LEUKOCYTES BY MANUAL COUNT Normal [facility] Comment on above: Performed By: #### L [id number], [id number] ####Finishing Supervisor Plastic Sheets: UNA ARCE ([id number])[facility] (HLAB)[address] [place] [address] [place] Magnesium [Mass/Vol]on 04-10 [facility] No Panel Informationon 04-10 Bands Manual 2 [facility] Basophils Manual 4 [facility] Eosinophils Manual 4 High 0 - 1 [facility] Interpretation and review of laboratory results Abnormal [facility] Lymphocytes Manual 7 [facility] Monocytes Manual 4 [facility] Myelocytes Manual 1 [facility] Neutrophils Manual 79 [facility] Interpretation and review of laboratory results Normal [facility] PHOSPHORUSon 04-10-2025 Phosphate [Mass/Vol] 2.6 mg/dL Normal 2.3-4.7 [facility] Comment on above: Performed By: #### L [id number], LAB17, [id number] ####Finishing Supervisor Plastic Sheets: UNA ARCE ([phone])[facility] (SBHLAB)[address] [place] [address] [place] Phosphate [Moles/Vol]on Phosphate [Mass/Vol] 2.6 mg/dL 2.3 - 4 .7 mg/dL [facility] Progress Noteon 04[facility]10-2025 Progress Note [facility] Progress Note Normal [facility] Progress Note Will assume care as patient is being transferred out of ICU. D/w Dr Lewis via secure chat Normal [facility] Progress Note Normal [facility] Progress Note Normal [facility] [id number] 04-09-2025 [id number] Normal [facility] [id number] Normal [facility] BODY FLUID CELL COUNT WITH R EFLEX DIFFon 04-09-2025 RBC, BODY FLUID (AUTOMATED) <0.002 High 0.000 [facility] Comment on above: Performed By: #### L [id number], [id number] ####Finishing Supervisor Plastic Sheets: UNA ARCE ([id number])[facility] (SB[facility])[address] [place] [address] WBC, BODY FLUID (AUTOMATED) 0.341 x10*3/ul High <=0.005 [facility] Comment on above: Performed By: #### L [id number], [id number] ####Finishing Supervisor [employer]astic Sheets: UNA ARCE ([id number])[facility] (SB[facility])[address] [place] [address] RBC, BODY FLUID (AUTOMATED) <0.002 High 0.000 [facility] Comment on above: Performed By: #### L [id number], [id number] ####Finishing Supervisor Plastic Sheets: UNA ARCE ([phone])[facility] ([facility])[address] [place] [address] WBC, BODY FLUID (AUTOMATED) 0.112 x10*3/ul High <=0.[address] [facility] Comment on above: Performed By: #### L [id number], [id number] ####Finishing Supervisor Plastic Sheets: UNA ARCE ([phone])[facility] (SBHL[facility])[address] [place] [address] BODY FLUID DIFFERENTIALon CELLS COUNTED TOTAL (#) IN BODY FLUID 100 Normal [facility] Comment on above: Performed By: #### L [id number], [id number] ####Finishing Supervisor [employer]: UNA ARCE ([phone])[facility] ([facility])[address] [place] [address] [place] LYMPHOCYTES/100 LEUKOCYTES IN BODY FLUID BY MAN CT 51 % Normal [facility] Comment on above: Performed By: #### L [id number], [id number] ####Finishing Supervisor [employer]: UNA ARCE ([phone])[facility] ([facility])[address] [place] [address] [place] MONOCYTES+MACROPHAGES/10 0 WBC IN BODY FLUID BY MAN CT 36 % Normal [facility] Comment on above: Performed By: #### L [id number], [id number] ####Finishing Supervisor Plastic Sheets: UNA ARCE ([id number])[facility] (SBHLAB)[address] [place] [address] [place] Neutrophils/100 WBC (Bld) 13 % Normal [facility] Comment on above: Performed By: #### L [id number], [id number] ####Finishing Supervisor Plastic Sheets: UNA ARCE ([id number])[facility] (SBHLAB)[address] [place] [address] [place] CELLS COUNTED TOTAL (#) IN BODY FLUID [address] [facility] Comment on above: Performed By: #### L [id number], [id number] ####Finishing Supervisor Plastic Sheets: UNA ARCE ([phone])[facility] (SBHLAB)[address] [place] [address] [place] LYMPHOCYTES/100 LEUKOCYTES IN BODY FLUID BY MAN CT 31 % Normal [facility] Comment on above: Performed By: #### L [id number], [id number] ####Finishing Supervisor Plastic Sheets: UNA ARCE ([phone])[facility] (SBHLAB)[address] [place] [address] [place] MESOTHELIAL CELLS/100 LEUKOCYTES IN BODY FLUID BY MANUAL COUNT 2 % Normal [facility] Comment on above: Performed By: #### L [id number], [id number] ####Finishing Supervisor Plastic Sheets: UNA ARCE ([phone])[facility] (SBHLAB)[address] MONOCYTES+MACROPHAGES/10 0 WBC IN BODY FLUID BY MAN CT 37 % Normal [facility] Comment on above: Performed By: #### L [id number], [id number] ####Finishing Supervisor Plastic Sheets: UNA ARCE ([id number])[facility] (SBHLAB)[address] Neutrophils/100 WBC (Bld) 30 % Normal [facility] Comment on above: Performed By: #### L [id number], [id number] ####Finishing Supervisor Plastic Sheets: UNA ARCE ([phone])[facility] (SBHLAB)[address] CBC W Auto Differential pane l (Bld)Ordered By: Jg Sarabia on 04-09-2025 Erythrocyte distribution width (RBC) [Ratio] 21.8 % High 11.5 - 15.0 % [facility] [employer] Hematocrit (Bld) [Volume fraction] 27.7 % Low 40.0 - 52.0 % [facility] Hemoglobin (Bld) [Mass/Vol] 7.5 g/dL Low 13.0 - 18.0 g/dL [facility] MCH (RBC) [Entitic mass] 22.6 pg Low 26. 0 - 34.0 pg [facility] MCHC (RBC) [Mass/Vol] 27.1 % Low 30.5 - 36.0 % [facility] MCV (RBC) [Entitic vol] 83.4 fL 77.0 - 99.0 fL [facility] Platelet mean volume (Bld) [Entitic vol] 9.4 fL 9.0 - 12.7 fL [facility] Platelets (Bld) [#/Vol] 279 10*3/uL 140 - 440 10*3/uL [facility] RBC (Bld) [#/Vol] 3.32 10*6/uL Low 4.40 - 5.9 0 10*6/uL [facility] WBC (Bld) [#/Vol] 11.2 10*3/uL High 3.6 - 10.7 10*3/uL [facility] CBC WITH AUTO DIFFERENTIALon 04-09-2025 Erythrocyte distribution width (RBC) [Ratio] 21.8 % High 11.5-15.0 [facility] Comment on above: Performed By: #### L [id number], [id number] ####Finishing Supervisor Plastic Sheets: UNA ARCE ([id number])LYNETTE SANCHEZLUIS (SBHLAB)[address] Hematocrit (Bld) [Volume fraction] 27.7 % Low 40.0-52.0 [facility] Comment on above: Performed By: #### L [id number], [id number] ####Finishing Supervisor Plastic Sheets: UNA ARCE ([phone])[facility] (SBHLAB)[address] Hemoglobin (Bld) [Mass/Vol] 7.5 g/dL Low 13.0-18.0 [facility] Comment on above: Performed By: #### L [id number], [id number] ####Finishing Supervisor Plastic Sheets: UNA ARCE ([phone])[facility] SANCHEZCHRISTINAN (SBHLAB)[address] MCH (RBC) [Entitic mass] 22.6 pg Low 26.0-34.0 [facility] Comment on above: Performed By: #### L [id number], [id number] ####Finishing Supervisor Plastic Sheets: UNA ARCE ([id number])[facility]ZCR[facility]POINT [facility]ACILITYMarisol (SBHLAB)[address] MCHC 27.1 % Low 30.5-36.0 [facility] Comment on above: Performed By: #### L [id number], [id number] ####Finishing Supervisor Plastic Sheets: UNA ARCE ([phone])[facility] (SBHLAB)[address] MCV (RBC) [Entitic vol] 83.4 fL Normal 77.0-99.0 [facility] Comment on above: Performed By: #### L [id number], [id number] ####Finishing Supervisor Plastic Sheets: UNA ARCE ([phone])[facility] LAURACHRISTINAN (SBHLAB)[address] Platelet mean volume (Bld) [Entitic vol] 9.4 fL Normal 9.0-12.7 [facility] Comment on above: Performed By: #### L [id number], [id number] ####Finishing Supervisor Plastic Sheets: UNA ARCE ([phone])MONISHAA MCKAYN (SBHLAB)[address] Platelets (Bld) [#/Vol] 279 10*3/uL Normal 140-440 [facility] Comment on above: Performed By: #### L [id number], [id number] ####Finishing Supervisor Plastic Sheets: UNA ARCE ([id number])[facility] MCKAYN (SBHLAB)[address] RBC (Bld) [#/Vol] 3.32 10*6/uL Low 4.40-5.90 [facility] Comment on above: Performed By: #### L [id number], [id number] ####Finishing Supervisor Plastic Sheets: UNA ARCE ([phone])[facility] (SBHLAB)[address] WBC (Bld) [#/Vol] 11.2 10*3/uL High 3.6-10.7 [facility] Comment on above: Performed By: #### L [id number], [id number] ####Finishing Supervisor Plastic Sheets: UNA ARCE ([id number])[facility]N (SBHLAB)[address] COMPREHENSIVE METABOLIC PANE Anant 04-09-2025 Albumin [Mass/Vol] 2.2 g/dL Low 3.4-4.[address] [facility] Comment on above: Performed By: #### L [id number], [id number], [id number] ####Finishing Supervisor Plastic Sheets: UNA ARCE ([id number])[facility] (SBHLAB)[address] ALP [Catalytic activity/Vol] 56 U/L Normal 40-[address] [facility] Comment on above: Performed By: #### L AB103, [id number], LAB17 ####Finishing Supervisor Plastic Sheets: UNA ARCE ([phone])[facility]ITAL[facility] ESCOTO (SBHLAB)[address] ALT [Catalytic activity/Vol] U/L Normal <40 [facility] Comment on above: Performed By: #### L AB103, [id number], LAB17 ####Finishing Supervisor Plastic Sheets: UNA ARCE ([id number])[facility] (SBHLAB)[address] Anion gap [Moles/Vol] 10 mmol/L Normal 3-13 [facility] Comment on above: Performed By: #### L AB103, [id number], LAB17 ####Finishing Supervisor Plastic Sheets: UNA ARCE ([id number])[facility] (SBHLAB)[address] AST [Catalytic activity/Vol] 18 U/L Normal <34 [facility] Comment on above: Performed By: #### L AB103, [id number], LAB17 ####Finishing Supervisor Plastic Sheets: UNA ARCE ([id number])[facility] (SBHLAB)[address] Bilirubin [Mass/Vol] 0.7 mg/dL Normal <1.2 [facility] Comment on above: Performed By: #### L AB103, [id number], LAB17 ####Finishing Supervisor Plastic Sheets: UNA ARCE ([phone])[facility] ([facility])[address] Calcium [Mass/Vol] 8.1 mg/dL Low 8.8-10.[address] [facility] Comment on above: Performed By: #### L AB103, [id number], LAB17 ####Finishing Supervisor Plastic Sheets: UNA ARCE ([phone])[facility] (SBHLAB)[address] Chloride [Moles/Vol] 98 mmol/L Normal 98-107 [facility] Comment on above: Performed By: #### L AB103, [id number], LAB17 ####Finishing Supervisor Plastic Sheets: UNA YAZMIN ([id number])[facility] (SBHLAB)[address] CO2 [Moles/Vol] 34 mmol/L High 23-31 [facility] Comment on above: Performed By: #### L AB103, [id number], LAB17 ####Finishing Supervisor Plastic Sheets: UNA BERMUDEZPEDRO ([id number])[facility] (SBHLAB)[address] Creatinine [Mass/Vol] 1.53 mg/dL High 0.72-1.25 [facility] Comment on above: Performed By: #### L AB103, [id number], LAB17 ####Finishing Supervisor Plastic Sheets: UNA BERMUDEZPEDRO ([phone])[facility] ([facility])[address] GLOMERULAR FILTRATION RATE ML/MIN/1.73 SQ M.PREDICTED 43.2 mL/min/1.73m*2 Low >60.0 [facility] Comment on above: Result Comment: Calc ulation based on the Chronic Kidney Disease Epidemiology Collaboration (CKD-EPI) equation refit without adjustment for race Performed By: #### L AB103, [id number], LAB17 ####Finishing Supervisor Plastic Sheets: UNA STAUFFERMELANIE ([phone])[facility] ([facility])[address] Glucose [Mass/Vol] 90 mg/dL Normal 82-115 [facility] Comment on above: Performed By: #### L AB103, [id number], LAB17 ####Finishing Supervisor Plastic Sheets: UNA BERMUDEZPEDRO ([phone])[facility] ([facility])[address] Potassium [Moles/Vol] 3.5 mmol/L Normal 3.5-5.1 [facility] Comment on above: Result Comment: [facility] potassium values may be up to 0.5 mmol/L lower than serum values. Performed By: #### L AB103, [id number], LAB17 ####Finishing Supervisor Plastic Sheets: UNAANJEL ARCE ([phone])[facility] ESC[facility] (SBHLAB)[address] [place] [address] Protein [Mass/Vol] 5.7 g/dL Low 6.4-8.3 [facility] Comment on above: Performed By: #### L AB103, [id number], LAB17 ####Finishing Supervisor Plastic Sheets: UNA YAZMIN ([phone])[facility] (SBHLAB)[address] Sodium [Moles/Vol] 142 mmol/L Normal 136-145 [facility] Comment on above: Performed By: #### L AB103, [id number], LAB17 ####Finishing Supervisor Plastic Sheets: UNAANJEL ARCE ([id number])[facility] (SBHLAB)[address] [place] [address] Urea nitrogen [Mass/Vol] 25 mg/dL High 9-23 [facility] Comment on above: Performed By: #### L AB103, [id number], LAB17 ####Finishing Supervisor Plastic Sheets: UNA YAZMIN ([phone])[facility] (SBHLAB)[address] [place] [address] CULTURE ANAEROBICon 04-09-20 CULTURE ANAEROBIC [facility] Comment on above: Performed By: #### L [id number] ####Finishing Supervisor Plastic Sheets: ANAHY AVILA ([phone])[facility] ([facility])[address] [place] [address] CULTURE ANAEROBIC Normal [facility] Comment on above: Performed By: #### L AB233 ####Finishing Supervisor Plastic Sheets: ANAHY AVILA ([phone])[address] CULTURE, AEROBIC BACTERIA WI TH GRAM STAINon 04-09-2025 CULTURE, AEROBIC BACTERIA WITH GRAM STAIN Normal [facility] Comment on above: Performed By: #### L [id number] ####Finishing Supervisor Plastic Sheets: ANAHY AVILA ([phone])[facility] ([facility])[address] [place] [address] CULTURE, AEROBIC BACTERIA WITH GRAM STAIN Normal [facility] Comment on above: Performed By: #### L AB897 ####Finishing Supervisor Plastic Sheets: ANAHY AVILA ([phone])[facility] ([facility])[address] [place] [address] Comprehensive metabolic 1998 panelon 04-09-2025 Albumin [Mass/Vol] 2.2 g/dL Low 3.4 - 4.8 g/dL [facility] ALP [Catalytic activity/Vol] 56 U/L 40 - 150 U/L [facility] ALT [Catalytic activity/Vol] U/L NINF - 40 U/L [facility] Anion gap [Moles/Vol] 10 mmol/L 3 - 13 mmol/L [facility] AST [Catalytic activity/Vol] 18 U/L [facility] U/L [facility] Bilirubin [Mass/Vol] 0.7 mg/dL NINF - 1.2 mg/dL [facility] Calcium [Mass/Vol] 8.1 mg/dL Low 8.8 - 10. 0 mg/dL [facility] Chloride [Moles/Vol] 98 mmol/L 98 - 10 7 mmol/L [facility] CO2 [Moles/Vol] 34 mmol/L High 23 - 31 mmol/L [facility] Creatinine [Mass/Vol] 1.53 mg/dL High 0.72 - 1.25 mg/dL [facility] GFR/1.73 sq M.predicted (S/P/Bld) [Vol rate/Area] 43.2 mL/min Low - PINF [facility] Glucose [Mass/Vol] 90 mg/dL 82 - 115 mg/dL [facility] Interpretation and review of laboratory results Abnormal [facility] Potassium [Moles/Vol] 3.5 mmol/L 3.5 - 5.1 mmol/L [facility] Protein [Mass/Vol] 5.7 g/dL Low 6.4 - 8.3 g/dL [facility] Sodium [Moles/Vol] 142 mmol/L 136 - 145 mmol/L [facility] Urea nitrogen [Mass/Vol] 25 mg/dL High 9 - 23 mg/d L [facility] Consulton 04-09-[address] [facility] GLUCOSE, BODY FLUIDon 2024 GLUCOSE, BODY FLUID 132 mg/dL Normal [facility] Comment on above: Performed By: #### L AB188, [id number], [id number], [id number] ####Finishing Supervisor Plastic Sheets: ANAHY AVILA ([phone])[facility] ([facility] [place] [address] GLUCOSE, BODY FLUID 92 mg/dL Normal [facility] Comment on above: Performed By: #### L AB196, NJK889, JYM394, VIG132 ####Finishing Supervisor Plastic Sheets: ANAHY AVILA ([phone])[facility] ([facility])[address] [place] [address] LACTATE DEHYDROGENASEon LDH [Catalytic activity/Vol] 181 U/L Normal 125-220 [facility] Comment on above: Performed By: #### L AB118, LAB96 ####Finishing Supervisor Plastic Sheets: UNA ARCE ([phone])[facility] ([address]AB[address] LACTATE DEHYDROGENASE, BODY FLUIDon 04-09-2025 LACTATE DEHYDROGENASE, BODY FLUID BY LAC->PYR 95 U/L Normal [facility] Comment on above: Performed By: #### L AB188, [id number], [id number], UTC628 ####Finishing Supervisor Plastic Sheets: ANAHY AVILA ([phone])[facility] ([facility])[address] [place] [address] LACTATE DEHYDROGENASE, BODY FLUID BY LAC->PYR 95 U/L Normal [facility] Comment on above: Performed By: #### L AB196, UGB168, JJA034, ESJ270 ####Finishing Supervisor Plastic Sheets: ANAHY AVILA ([phone])[facility])[address] [place] [address] TYPE OF BODY FLUID Pleural Fluid Normal [facility] Comment on above: Result Comment: YARELI [place] COMMENTS:This test was developed and its performance characteristics determined by [employer]. It has not been cleared or approved by the [place] Food and Drug Administration. This test was performed in a CLIA certified laboratory and is intended for clinical purposes.Exudates are defined as meeting one of the following criteria: (a) Pleural kxxbi-ep-xuxdu protein ratio of >0.5, (b) pleural ovthg-no-hkkhc LDH ratio of >0.6, or (c)a pleural fluid LDH activity that is >2/3 the upper limit of a normal serum LDH activity (Light???s criteria). Performed By: #### L AB196, YZT075, CQL677, BHL909 ####Finishing Supervisor Plastic Sheets: ANAHY AVILA ([phone])[facility] ([facility])[address] [place] [address] Result Comment: ORDE R COMMENTS:This test was developed and its performance characteristics determined by [facility]. It has not been cleared or approved [...] developed and its performance characteristics determined by [employer]. It has not been cleared or approved by the [place] Food and Drug Administration. This test was performed in a CLIA certified laboratory and is intended for clinical purposes.Pleural kiuiz-cz-zgakk protein ratio of >0.5 is one of Light???s criteria for an exudate. Heart failure associated misclassifications (by Light???s criteria) may be differentiated as transudative effusions by subsequently evaluating a snfkt-xi-thhxokq albumin gradient (>1.2 g/dL) and/or a dhcfu-ko-jlnpz protein gradient (>3.1 g/dL). Result Comment: ORDE R COMMENTS:This test was developed and its performance characteristics determined by [employer]. It has not been cleared or approved by the US Food and Drug Administration. This test was performed in a CLIA certified laboratory and is intended for clinical purposes. Performed By: #### L [id number], [id number] ####Finishing Supervisor Plastic Sheets: UNA ARCE ([phone])[facility] (SBHLAB)[address] [place] [address] LDH Lactate to pyruvate reac tion [Catalytic activity/Vol]on 04-09-2025 Interpretation and review of laboratory results Normal [facility] Laboratoryon 04-09-2025 Fluid Nom (Body fld) Pleural Fluid S [facility] Fluid Nom (Body fld) Pleural Fluid S [facility] Fluid Nom (Body fld) Pleural Fluid S [facility] Fluid Nom (Body fld) Pleural Fluid S [facility] Fluid Nom (Body fld) Pleural Fluid S [facility] Fluid Nom (Body fld) Pleural Fluid S [facility] Fluid Nom (Body fld) Pleural Fluid S [facility] LaboratoryOrdered By: Anne cadena on 04-09-2025 Fluid Nom (Body fld) Pleural Fluid S [facility] LaboratoryOrdered By: Rian Spann on 04-09-2025 Fluid Nom (Body fld) Pleural Fluid S [facility] - Chemistry and C hemistry - challengeon 04-09-2025 LDH (Body fld) [Catalytic activity/Vol] 95 U/L [facility] Glucose (Body fld) [Mass/Vol] 132 mg/dL [facility] Protein (Body fld) [Mass/Vol] 2.3 g/dL [facility] pH (Body fld) 7.747 [pH] [facility] pH (Body fld) 7.688 [pH] [facility] Protein (Body fld) [Mass/Vol] 2.5 g/dL [facility] Glucose (Body fld) [Mass/Vol] 92 mg/dL [facility] LDH Lactate to pyruvate reaction [Catalytic activity/Vol] 181 U/L 125 - 220 U/L [facility] Protein [Mass/Vol] 5.9 g/dL Low 6.4 - 8.3 g/dL [facility] Magnesium [Mass/Vol] 1.7 mg/dL 1.6 - 2 .6 mg/dL [facility] Laboratory - Chemistry and C hemistry - challengeOrdered By: Anne Miles on 04-09-2025 LDH (Body fld) [Catalytic activity/Vol] 95 U/L [facility] Laboratory - Hematology and Cell countson 04-09-2025 Cells Counted Total (Body fld) [#] 100 [facility] Lymphocytes/100 WBC (Bld) 51 % [facility] Macrophages/100 WBC Manual cnt (Body fld) 36 % [facility] Neutrophils/100 WBC (Body fld) 13 % [facility] RBC Auto (Body fld) [#/Vol] High [facility] WBC (Body fld) [#/Vol] 0.341 10*3/uL High NINF [facility] Cells Counted Total (Body fld) [#] 100 [facility] Lymphocytes/100 WBC (Bld) 31 % [facility] Macrophages/100 WBC Manual cnt (Body fld) 37 % [facility] Mesothelial cells/100 WBC Manual cnt (Body fld) 2 % [facility] Neutrophils/100 WBC (Body fld) 30 % [facility] Anisocytosis Ql (Bld) Moderate Abnormal (none) [facility] Eosinophils (Bld) [#/Vol] 0.6 10*3/uL High 0.0 - 0.5 10*3/uL [facility] Eosinophils/100 WBC (Bld) 5 % 0 - 6 % [facility] Hypochromia Ql (Bld) Moderate Abnormal (none) [facility] Lymphocytes (Bld) [#/Vol] 0.8 10*3/uL Low 1.0 - 4.3 10*3/uL [facility] Lymphocytes/100 WBC (Bld) 7 % Low 15 - 45 % [facility] Monocytes (Bld) [#/Vol] 2 10*3/uL High 0.0 - 0.9 10*3/uL [facility] Monocytes/100 WBC (Bld) 18 % High 5 - 13 % [facility] Neutrophils (Bld) [#/Vol] 8 10*3/uL High 1.8 - 7.5 10*3/uL [facility] Poikilocytosis LM Ql (Bld) Slight Abnormal (none) [facility] Polychromasia LM Ql (Bld) Slight Abnormal (none) [facility] RBC morphology finding Nom (Bld) abnormal [facility] Segmented neutrophils/100 WBC (Bld) 71 % 38 - 82 % [facility] Stomatocytes LM Ql (Bld) Moderate Abnormal (none) [facility] Laboratory - Hematology and Cell countsOrdered By: Kyara Valles on 04-09-2025 RBC Auto (Body fld) [#/Vol] High [facility] WBC (Body fld) [#/Vol] 0.112 10*3/uL High NINF [facility] MAGNESIUMon 04-09-2025 Magnesium [Mass/Vol] 1.7 mg/dL Normal 1.6-2.6 [facility] Comment on above: Result Comment: YARELI [place] COMMENTS:Higher values can be expected in females during menses. Performed By: #### L AB103, [id number], LAB17 ####Finishing Supervisor [employer]astic Sheets: UNA ARCE ([phone])[facility] [place] ([facility])[address] MANUAL DIFFERENTIAL (CELLAVI BANDAR)on 04-09-2025 ANISOCYTOSIS PRESENCE IN BLOOD BY LIGHT MICROSCOPY Moderate Abnormal (none) [facility] Comment on above: Performed By: #### L [id number], [id number] ####Finishing Supervisor Plastic Sheets: UNA ARCE ([phone])[facility] [place] ([facility])[address] BAND NEUTROPHILS TOTAL PER COUNTED LEUKOCYTES BY MANUAL COUNT Normal [facility] Comment on above: Performed By: #### L [id number], [id number] ####Finishing Supervisor Plastic Sheets: UNA ARCE ([phone])[facility] [place] ([facility])[address] BASOPHILS TOTAL PER COUNTED LEUKOCYTES BY MANUAL COUNT Normal [facility] Comment on above: Performed By: #### L [id number], [id number] ####Finishing Supervisor Plastic Sheets: UNA ARCE ([id number])[facility] [place] ([facility])[address] BLASTS TOTAL PER COUNTED LEUKOCYTES BY MANUAL COUNT Normal [facility] Comment on above: Performed By: #### L [id number], [id number] ####Finishing Supervisor Plastic Sheets: UNA ARCE ([phone])[facility] [place] (SB[facility])[address] EOSINOPHILS (10*3/UL) IN BLOOD-CELLAVISION 0.6 10*3/uL High 0.0-0.5 [facility] Comment on above: Performed By: #### L [id number], [id number] ####Finishing Supervisor Plastic Sheets: UNA ARCE ([phone])[facility] ([facility])[address] [place] [address] [place] EOSINOPHILS TOTAL PER COUNTED LEUKOCYTES BY MANUAL COUNT 5 High 0-1 [facility] Comment on above: Performed By: #### L [id number], [id number] ####Finishing Supervisor Plastic Sheets: UNA ARCE ([id number])[facility] ([facility])[address] [place] [address] [place] EOSINOPHILS/100 LEUKOCYTES IN BLOOD-CELLAVISION 5 % Normal 0-6 [facility] Comment on above: Performed By: #### L [id number], [id number] ####Finishing Supervisor Plastic Sheets: UNA ARCE ([id number])[facility] [place] ([facility])[address] [place] [address] [place] HYPOCHROMIA (PRESENCE) IN BLOOD BY LIGHT MICROSCOPY Moderate Abnormal (none) [facility] Comment on above: Performed By: #### L [id number], [id number] ####Finishing Supervisor Plastic Sheets: UNA ARCE ([phone])[facility] [place] ([facility])[address] [place] [address] [place] LYMPHOCYTES (10*3/UL) IN BLOOD-CELLAVISION 0.8 10*3/uL Low 1.0-4.[address] [facility] Comment on above: Performed By: #### L [id number], [id number] ####Finishing Supervisor Plastic Sheets: UNA ARCE ([phone])[facility] [place] ([facility])[address] [place] [address] [place] LYMPHOCYTES TOTAL PER COUNTED LEUKOCYTES BY MANUAL COUNT [address] [facility] Comment on above: Performed By: #### L [id number], [id number] ####Finishing Supervisor [employer]astic Sheets: UNA ARCE ([phone])[facility] [place] ([facility])[address] [place] [address] [place] LYMPHOCYTES/100 LEUKOCYTES IN BLOOD-CELLAVISION 7 % Low 15-45 [facility] Comment on above: Performed By: #### L [id number], [id number] ####Finishing Supervisor [employer]astic Sheets: UNA ARCE ([phone])[facility] [place] ([facility])[address] [place] [address] [place] METAMYELOCYTES TOTAL PER COUNTED LEUKOCYTES BY MANUAL COUNT [facility] Comment on above: Performed By: #### L [id number], [id number] ####Finishing Supervisor Plastic Sheets: UNA ARCE ([phone])[facility] [place] ([facility])[address] [place] [address] [place] MONOCYTES (10*3/UL) IN BLOOD-CELLAVISION 2.0 10*3/uL High 0.0-0.9 [facility] Comment on above: Performed By: #### L [id number], [id number] ####Finishing Supervisor [employer] Sheets: UNA ARCE ([phone])[facility] [place] ([facility] [place] [address] [place] MONOCYTES TOTAL PER COUNTED LEUKOCYTES BY MANUAL COUNT [address] [facility] Comment on above: Performed By: #### L [id number], [id number] ####Finishing Supervisor [employer]astic Sheets: UNA ARCE ([phone])[facility] [place] [facility] [place] [address] [place] MONOCYTES/100 LEUKOCYTES IN BLOOD-LUCIANA 18 % High 5-13 [facility] Comment on above: Performed By: #### L [id number], [id number] ####Finishing Supervisor [employer]astic Sheets: UNA ARCE ([phone])[facility] [place] ([facility] [place] [address] [place] MYELOCYTES COUNTED BY MANUAL COUNT [facility] Comment on above: Performed By: #### L [id number], [id number] ####Finishing Supervisor [employer]astic Sheets: UNA ARCE ([phone])[facility] [place] ([facility] [place] [address] [place] NEUTROPHILS TOTAL PER COUNTED LEUKOCYTES BY MANUAL COUNT 77 Normal [facility] Comment on above: Performed By: #### L [id number], [id number] ####Finishing Supervisor [employer]astic Sheets: UNA RACE ([phone])[facility] [place] ([facility] [place] [address] [place] POIKILOCYTOSIS (PRESENCE) IN BLOOD BY LIGHT MICROSCOPY Slight Abnormal (none) [facility] Comment on above: Performed By: #### L [id number], [id number] ####Finishing Supervisor [employer]astic Sheets: UNA ARCE ([phone])[facility] [place] ([facility])[address] POLYCHROMASIA IN BLOOD BY LIGHT MICROSCOPY Slight Abnormal (none) [facility] Comment on above: Performed By: #### L [id number], [id number] ####Finishing Supervisor Plastic Sheets: UNA STAUFFERMELANIE ([phone])[facility] [place] ([facility])[address] PROMYELOCYTES TOTAL PER COUNTED LEUKOCYTES BY MANUAL COUNT Normal [facility] Comment on above: Performed By: #### L [id number], [id number] ####Finishing Supervisor Plastic Sheets: UNA ARCE ([phone])[facility] [place] ([facility])[address] [place] [address] [place] RBC MORPHOLOGY IN BLOOD abnormal Normal [facility] Comment on above: Performed By: #### L [id number], [id number] ####Finishing Supervisor Plastic Sheets: UNA ARCE ([phone])[facility] [place] ([facility] [place] [address] [place] SEGMENTED NEUTROPHILS (10*3/UL) IN BLOOD-CELLAVISION 8.0 10*3/uL High 1.8-7.[address] [facility] Comment on above: Performed By: #### L [id number], [id number] ####Finishing Supervisor Plastic Sheets: UNA ARCE ([phone])[facility] [place] ([facility])[address] [place] [address] [place] SEGMENTED NEUTROPHILS/100 LEUKOCYTES-CE 71 % Normal 38-[address] [facility] Comment on above: Performed By: #### L [id number], [id number] ####Finishing Supervisor Plastic Sheets: UNA BERMUDEZPEDRO ([phone])[facility] ([facility])[address] STOMATOCYTES IN BLOOD BY LIGHT MICROSCOPY Moderate Abnormal (none) [facility] Comment on above: Performed By: #### L [id number], [id number] ####Finishing Supervisor Plastic Sheets: UNA BERMUDEZPEDRO ([phone])[facility] ([facility])[address] UNCLASSIFIED CELLS TOTAL PER COUNTED LEUKOCYTES BY MANUAL COUNT Normal [facility] Comment on above: Performed By: #### L [id number], [id number] ####Finishing Supervisor Plastic Sheets: UNA STAUFFERMELANIE ([phone])[facility] ([facility])[address] VARIANT LYMPHOCYTES TOTAL PER COUNTED LEUKOCYTES BY MANUAL COUNT Normal [facility] Comment on above: Performed By: #### L [id number], [id number] ####Finishing Supervisor Plastic Sheets: UNA BERMUDEZPEDRO ([phone])[facility] [place] ([facility])[address] Magnesium [Mass/Vol]on 04-09 [facility] No Panel Informationon 04-09 [facility] Interpretation and review of laboratory results Abnormal [facility] Interpretation and review of laboratory results Abnormal [facility] Interpretation and review of laboratory results Normal [facility] Eosinophils Manual 5 High 0 - 1 [facility] Lymphocytes Manual 7 [facility] Monocytes Manual 19 [facility] Neutrophils Manual 77 [facility] No Panel InformationOrdered By: Anne Miles on 04-09-2025 [facility] No Panel InformationOrdered By: Kyara Valles on 04-09-2025 Interpretation and review of laboratory results Abnormal [facility] No Panel InformationOrdered By: Jg Sarabia on 04-09-2025 Interpretation and review of laboratory results Abnormal [facility] Nursing Noteon 04-09-2025 Nursing Note R thoracentesis complete pt tolerated well with minimal discomfort Normal [facility] Nursing Note L thoracentesis complete per Dr Lewis. Pt tolerated well with minimal discomfort Normal [facility] PH, BODY FLUIDon 04-09-2025 pH (Body fld) 7.747 [pH] Normal [facility] Comment on above: Performed By: #### L [id number], [id number], [id number], [id number] ####Finishing Supervisor Plastic Sheets: ANAHY AVLIA ([phone])[facility] ([facility] [place] [address] TYPE OF BODY FLUID Pleural Fluid Normal [facility] Comment on above: Result Comment: YARELI [place] COMMENTS:This test was developed and its performance characteristics determined by [employer]. It has not been cleared or approved by the US Food and Drug Administration. This test was performed in a CLIA certified laboratory and is intended for clinical purposes. Performed By: #### L AB188, [id number], [id number], [id number] ####Finishing Supervisor Plastic Sheets: ANAHY AVILA ([phone])[facility] ([facility])[address] [place] [address] Result Comment: YARELI [place] COMMENTS:This test was developed and its performance characteristics determined by [employer]. It has not been cleared or approved [...] developed and its performance characteristics determined by [employer]. It has not been cleared or approved by the US Food and Drug Administration. This test was performed in a CLIA certified laboratory and is intended for clinical purposes.Pleural bjpyn-zn-pxzdf protein ratio of >0.5 is one of Light???s criteria for an exudate. Heart failure associated misclassifications (by Light???s criteria) may be differentiated as transudative effusions by subsequently evaluating a hxatm-nq-vgkgofm albumin gradient (>1.2 g/dL) and/or a zprze-hz-mksze protein gradient (>3.1 g/dL). Result Comment: YARELI [place] COMMENTS:This test was developed and its performance characteristics determined by [facility] [employer]. It has not been cleared or approved by the US Food and Drug Administration. This test was performed in a CLIA certified laboratory and is intended for clinical purposes.Exudates are defined as meeting one of the following criteria: (a) Pleural nzijt-gi-logte protein ratio of >0.5, (b) pleural zrpxo-zb-qmpdx LDH ratio of >0.6, or (c)a pleural fluid LDH activity that is >2/3 the upper limit of a normal serum LDH activity (Light???s criteria). Performed By: #### L [id number], [id number] ####Finishing Supervisor Plastic Sheets: UNA ARCE ([phone])[facility])[address] [place] [address] pH (Body fld) 7.688 [pH] Normal [facility] Comment on above: Performed By: #### L [id number], [id number], [id number], [id number] ####Finishing Supervisor Plastic Sheets: ANAHY AVILA ([phone])[facility] ([facility])[address] [place] [address] PHOSPHORUSon 04-09-2025 Phosphate [Mass/Vol] 3.5 mg/dL Normal 2.3-4.7 [facility] Comment on above: Performed By: #### L AB103, XDB133, LAB17 ####Finishing Supervisor Plastic Sheets: UNA ARCE ([phone])[facility])[address] [place] [address] PROTEIN BODY FLUIDon 025 PROTEIN, BODY FLUID 2.3 g/dL Normal [facility] Comment on above: Performed By: #### L AB188, [id number], TMQ655, [id number] ####Finishing Supervisor Plastic Sheets: ANAHY [phone])[facility] ([facility])[address] [place] [address] PROTEIN, BODY FLUID 2.5 g/dL Normal [facility] Comment on above: Performed By: #### L AB196, [id number], [id number], [id number] ####Finishing Supervisor Plastic Sheets: ANAHY AVILA ([phone])[facility] ([facility])[address] [place] [address] [place] Phosphate [Moles/Vol]on Phosphate [Mass/Vol] 3.5 mg/dL 2.3 - 4 .7 mg/dL [facility] Progress Noteon 04-09-2025 Progress Note Normal [facility] Progress Note Normal [facility] Progress Note Normal [facility] Progress [facility] Normal [facility] Progress Note [facility] TOTAL PROTEINon 04-09-2025 Protein [Mass/Vol] 5.9 g/dL Low 6.4-8.3 [facility] Comment on above: Result Comment: Seru m protein values are higher than plasma values. Samples from recumbent persons are lower by up to 0.5 g/dL as compared to ambulatory persons. After 60 years values are lower by up to 0.2 g/dL. Performed By: #### L AB118, LAB96 ####Finishing Supervisor Plastic Sheets: UNA ARCE ([phone])[facility] ([facility])[address] [place] [address] XR CHEST 1 VIEWon 04-09-2025 XR CHEST 1 VIEW Normal [facility] XR Chest Single viewon 04-09 [facility] Radiology Study observation (narrative) [facility] Radiology Study observation (narrative) [facility] Radiology Study observation (narrative) [facility]derr[facility] XR Chest Single viewOrdered By: Gary Kay on 04-09-2025 [facility] Work Phone: XR Chest Single viewOrdered By: Sis Collins on 04-09-2025 [facility] Work Phone: XR Chest Single viewOrdered By: Kev Mattson on 04-09-2025 [facility] Work Phone: [phone] 04-08-2025 [id number] Attempted to insert garcía. [employer]ro[employer] injected. Unable to visualize meatus. Attempted x1 to insert garcía without success. Normal [facility] [id number] Normal [facility] [id number] 04-08-2025 [id number] Normal [facility] BLOOD GAS ARTERIALon 025 AMOUNT OF OXYGEN .40 Normal [facility] Comment on above: Performed By: #### L [id number] ####Finishing Supervisor Plastic Sheets: NUA ARCE ([phone])[facility])[address] [place] [address] Base excess Calc (Bld) [Moles/Vol] 11.2 mmol/L High -3.0-3.0 [facility] Comment on above: Performed By: #### L [id number] ####Finishing Supervisor Plastic Sheets: UNA ARCE ([phone])[facility] ([facility])[address] [place] [address] CO2 [Moles/Vol] 41.2 mmol/L High 22.0-28.0 [facility] Comment on above: Performed By: #### L [id number] ####Finishing Supervisor Plastic Sheets: UNA ARCE ([phone])[facility] ([facility])[address] [place] [address] HCO3 (Bld) [Moles/Vol] 38.9 mmol/L High 21.0-27.0 [facility] Comment on above: Performed By: #### L [id number] ####Finishing Supervisor Plastic Sheets: UNA ARCE ([phone])[facility] ([facility])[address] [place] [address] Hemoglobin (Bld) [Mass/Vol] 8.4 g/dL Low Screen only [facility] Comment on above: Performed By: #### L [id number] ####Finishing Supervisor Plastic Sheets: UNA ARCE ([phone])[facility] [place] ([facility])[address] OXYGEN SATURATION (%) IN ARTERIAL BLOOD 97.0 % Normal 97.0-99.[address] [facility] Comment on above: Performed By: #### L [id number] ####Finishing Supervisor Plastic Sheets: UNA ARCE ([phone])[facility] (SB[facility])[address] PCO2 ARTERIAL 75.1 mm Hg High 35.0-48.0 [facility] Comment on above: Performed By: #### L [id number] ####Finishing Supervisor Plastic Sheets: UNA ARCE ([phone])[facility] ([facility])[address] PH ARTERIAL 7.332 Low 7.350-7.[address] [facility] Comment on above: Performed By: #### L [id number] ####Finishing Supervisor Plastic Sheets: UNA ARCE ([phone])[facility] ([facility])[address] PO2 ARTERIAL 104.0 mm Hg Normal 83.0-108.0 [facility] Comment on above: Performed By: #### L [id number] ####Finishing Supervisor Plastic Sheets: UNA ARCE ([phone])[facility] ([facility])[address] SOURCE OF OXYGEN Non-Invasive Ventilator Normal [facility] Comment on above: Performed By: #### L [id number] ####Finishing Supervisor Plastic Sheets: UNA ARCE ([phone])[facility] (SB[facility])[address] AMOUNT OF OXYGEN 4 liters Normal [facility] Comment on above: Performed By: #### L [id number] ####Finishing Supervisor Plastic Sheets: UNA ARCE ([phone])[facility] ([facility])[address] Base excess Calc (Bld) [Moles/Vol] 9.9 mmol/L High -3.0-3.[address] [facility] Comment on above: Performed By: #### L [id number] ####Finishing Supervisor Plastic Sheets: UNA ARCE ([phone])[facility] [place] ([facility])[address] CO2 [Moles/Vol] 40.6 mmol/L High 22.0-28.0 [facility] Comment on above: Performed By: #### L [id number] ####Finishing Supervisor Plastic Sheets: UNA ARCE ([phone])[facility] [place] ([facility])[address] HCO3 (Bld) [Moles/Vol] 38.2 mmol/L High 21.0-27.0 [facility] Comment on above: Performed By: #### L [id number] ####Finishing Supervisor Plastic Sheets: UNA ARCE ([phone])[facility] (SB[facility])[address] Hemoglobin (Bld) [Mass/Vol] 8.6 g/dL Low Screen only [facility] Comment on above: Performed By: #### L [id number] ####Finishing Supervisor Plastic Sheets: UNA ARCE ([phone])[facility] ([facility])[address] OXYGEN SATURATION (%) IN ARTERIAL BLOOD 96.1 % Low 97.0-99.0 [facility] Comment on above: Performed By: #### L [id number] ####Finishing Supervisor Plastic Sheets: UNA ARCE ([phone])[facility] (SB[facility])[address] PCO2 ARTERIAL 80.1 mm Hg Critically high 35.0-48.[address] [facility] Comment on above: Performed By: #### L [id number] ####Finishing Supervisor Plastic Sheets: UNA ARCE ([phone])[facility] ([facility])[address] PH ARTERIAL 7.296 Low 7.350-7.[address] [facility] Comment on above: Performed By: #### L [id number] ####Finishing Supervisor Plastic Sheets: UNA ARCE ([phone])[facility]Angel [facility]ZCROWNPOINT [facility] FACILITYMarisol (SBHLAB)[address] PO2 ARTERIAL 92.0 mm Hg Normal 83.0-108.0 [facility] Comment on above: Performed By: #### L [id number] ####Finishing Supervisor Plastic Sheets: UNA YAZMIN ([phone])[facility]ZCROWNPOINT [facility] (SB[facility]AB)[address] SOURCE OF OXYGEN Nasal Cannula (LPM) Normal [facility] Comment on above: Performed By: #### L [id number] ####Finishing Supervisor Plastic Sheets: UNA ARCE ([phone])[facility] (SB[facility])[address] CBC W Auto Differential pane l (Bld)on 04-08-2025 Erythrocyte distribution width (RBC) [Ratio] 21.1 % High 11.5 - 15.0 % [facility] [employer] Hematocrit (Bld) [Volume fraction] 25.9 % Low 40.0 - 52.0 % [facility] Hemoglobin (Bld) [Mass/Vol] 7.2 g/dL Low 13.0 - 18.0 g/dL [facility] MCH (RBC) [Entitic mass] 22.3 pg Low 26. 0 - 34.0 pg [facility] MCHC (RBC) [Mass/Vol] 27.8 % Low 30.5 - 36.0 % [facility] MCV (RBC) [Entitic vol] 80.2 fL 77.0 - 99.0 fL [facility] Platelet mean volume (Bld) [Entitic vol] 9.9 fL 9.0 - 12.7 fL [facility] Platelets (Bld) [#/Vol] 314 10*3/uL 140 - 440 10*3/uL [facility] RBC (Bld) [#/Vol] 3.23 10*6/uL Low 4.40 - 5.9 0 10*6/uL [facility] WBC (Bld) [#/Vol] 13 10*3/uL High 3.6 - 10.7 10*3/uL [facility] CBC WITH AUTO DIFFERENTIALon 04-08-2025 Erythrocyte distribution width (RBC) [Ratio] 21.1 % High 11.5-15.0 [facility] Comment on above: Performed By: #### L [id number], [id number] ####Finishing Supervisor [employer]astic Sheets: UNA ARCE ([phone])[facility] ([facility])[address] Hematocrit (Bld) [Volume fraction] 25.9 % Low 40.0-52.0 [facility] Comment on above: Performed By: #### L [id number], [id number] ####Finishing Supervisor [employer]astic Sheets: UNA ARCE ([phone])[facility])[address] Hemoglobin (Bld) [Mass/Vol] 7.2 g/dL Low 13.0-18.0 [facility] Comment on above: Performed By: #### L [id number], [id number] ####Finishing Supervisor [employer]astic Sheets: UNA ARCE ([phone])[facility] ([facility])[address] [place] [address] MCH (RBC) [Entitic mass] 22.3 pg Low 26.0-34.0 [facility] Comment on above: Performed By: #### L [id number], [id number] ####Finishing Supervisor [employer]astic Sheets: UNA ARCE ([id number])[facility])[address] [place] [address] MCHC 27.8 % Low 30.5-36.0 [facility] Comment on above: Performed By: #### L [id number], [id number] ####Finishing Supervisor [employer]astic Sheets: UNA ARCE ([phone])[facility])[address] MCV (RBC) [Entitic vol] 80.2 fL Normal 77.0-99.0 [facility] Comment on above: Performed By: #### L [id number], [id number] ####Finishing Supervisor [employer]astic Sheets: UNA ARCE ([phone])[facility] (SBHLAB)[address] Platelet mean volume (Bld) [Entitic vol] 9.9 fL Normal 9.0-12.7 [facility] Comment on above: Performed By: #### L [id number], [id number] ####Finishing Supervisor [employer]astic Sheets: UNA ARCE ([phone])[facility] (SB[facility]AB)[address] Platelets (Bld) [#/Vol] 314 10*3/uL Normal 140-440 [facility] Comment on above: Performed By: #### L [id number], [id number] ####Finishing Supervisor [employer]astic Sheets: UNA ARCE ([id number])[facility])[address] RBC (Bld) [#/Vol] 3.23 10*6/uL Low 4.40-5.90 [facility] Comment on above: Performed By: #### L [id number], [id number] ####Finishing Supervisor [employer]astic Sheets: UNA ARCE ([phone])[facility] ([facility])[address] WBC (Bld) [#/Vol] 13.0 10*3/uL High 3.6-10.7 [facility] Comment on above: Performed By: #### L [id number], [id number] ####Finishing Supervisor [employer]astic Sheets: UNA ARCE ([phone])[facility] ([facility])[address] COMPREHENSIVE METABOLIC PANE Anant 04-08-2025 Albumin [Mass/Vol] 2.4 g/dL Low 3.4-4.8 [facility] Comment on above: Performed By: #### L AB103, LAB17 ####Finishing Supervisor [employer]astic Sheets: UNA ARCE ([id number])[facility] ([facility])[address] ALP [Catalytic activity/Vol] 57 U/L Normal 40-150 [facility] Comment on above: Performed By: #### L AB103, LAB17 ####Finishing Supervisor [employer]astic Sheets: UNA ARCE ([phone])[facility] ([facility])[address] ALT [Catalytic activity/Vol] U/L Normal <40 [facility] Comment on above: Performed By: #### L AB103, LAB17 ####Finishing Supervisor [employer] Sheets: UNA STAUFFERMELANIE ([phone])[facility] ([facility])[address] Anion gap [Moles/Vol] 10 mmol/L Normal 3-13 [facility] Comment on above: Performed By: #### L AB103, LAB17 ####Finishing Supervisor [employer] Sheets: UNA STAUFFERMELANIE ([id number])[facility] ([facility])[address] AST [Catalytic activity/Vol] 21 U/L Normal <34 [facility] Comment on above: Performed By: #### L AB103, LAB17 ####Finishing Supervisor [employer] Sheets: UNA STAUFFERMELANIE ([phone])[facility] ([facility])[address] Bilirubin [Mass/Vol] 0.6 mg/dL Normal <1.2 [facility] Comment on above: Performed By: #### L AB103, LAB17 ####Finishing Supervisor [employer] Sheets: UNA ARCE ([id number])[facility] ([facility])[address] Calcium [Mass/Vol] 7.9 mg/dL Low 8.8-10.[address] [facility] Comment on above: Performed By: #### L AB103, LAB17 ####Finishing Supervisor [employer]astic Sheets: UNA ARCE ([phone])[facility] ([facility])[address] Chloride [Moles/Vol] 99 mmol/L Normal 98-107 [facility] Comment on above: Performed By: #### L AB103, LAB17 ####Finishing Supervisor [employer]astic Sheets: UNA ARCE ([phone])[facility] ([facility])[address] CO2 [Moles/Vol] 33 mmol/L High 23-31 [facility] Comment on above: Performed By: #### L AB103, LAB17 ####Finishing Supervisor [employer]astic Sheets: UNA ARCE ([phone])[facility] ([facility])[address] Creatinine [Mass/Vol] 1.78 mg/dL High 0.72-1.25 [facility] Comment on above: Performed By: #### L DERICK, LAB17 ####Finishing Supervisor [employer]astic Sheets: UNA ARCE ([phone])[facility] ([facility])[address] GLOMERULAR FILTRATION RATE ML/MIN/1.73 SQ M.PREDICTED 36.0 mL/min/1.73m*2 Low >60.0 [facility] Comment on above: Result Comment: Calc ulation based on the Chronic Kidney Disease Epidemiology Collaboration (CKD-EPI) equation refit without adjustment for race Performed By: #### L DERICK, LAB17 ####Finishing Supervisor [employer]astic Sheets: UNA ARCE ([phone])[facility] ([facility])[address] Glucose [Mass/Vol] 99 mg/dL Normal 82-115 [facility] Comment on above: Performed By: #### L AB103, LAB17 ####Finishing Supervisor [employer] Sheets: UNA ARCE ([phone])[facility] ([facility])[address] [place] [address] [place] Potassium [Moles/Vol] 3.4 mmol/L Low 3.5-5.1 [facility] Comment on above: Result Comment: [facility] potassium values may be up to 0.5 mmol/L lower than serum values. Performed By: #### L AB103, LAB17 ####Finishing Supervisor [employer] Sheets: UNA ARCE ([phone])[facility] ([facility])[address] Protein [Mass/Vol] 5.8 g/dL Low 6.4-8.[address] [facility] Comment on above: Performed By: #### L AB103, LAB17 ####Finishing Supervisor [employer] Sheets: UNA ARCE ([phone])[facility] [place] ([facility])[address] Sodium [Moles/Vol] 142 mmol/L Normal 136-145 [facility] Comment on above: Performed By: #### L AB103, LAB17 ####Finishing Supervisor [employer] Sheets: UNA ARCE ([phone])[facility] ([facility])[address] Urea nitrogen [Mass/Vol] 26 mg/dL High 9-23 [facility] Comment on above: Performed By: #### L [id number], [id number] ####Finishing Supervisor Plastic Sheets: UNA ARCE ([phone])[facility] (SBHLAB)[address] Comprehensive metabolic 1998 panelon 04-08-2025 Albumin [Mass/Vol] 2.4 g/dL Low 3.4 - 4.8 g/dL [facility] ALP [Catalytic activity/Vol] 57 U/L 40 - 150 U/L [facility] ALT [Catalytic activity/Vol] U/L NINF - 40 U/L [facility] Anion gap [Moles/Vol] 10 mmol/L 3 - 13 mmol/L [facility] AST [Catalytic activity/Vol] 21 U/L NINF - 34 U/L [facility] Bilirubin [Mass/Vol] 0.6 mg/dL NINF - 1.2 mg/dL [facility] Calcium [Mass/Vol] 7.9 mg/dL Low 8.8 - 10. 0 mg/dL [facility] Chloride [Moles/Vol] 99 mmol/L 98 - 10 7 mmol/L [facility] CO2 [Moles/Vol] 33 mmol/L High 23 - 31 mmol/L [facility] Creatinine [Mass/Vol] 1.78 mg/dL High 0.72 - 1.25 mg/dL [facility] GFR/1.73 sq M.predicted (S/P/Bld) [Vol rate/Area] 36 mL/min Low - PINF [facility] Glucose [Mass/Vol] 99 mg/dL 82 - 115 mg/dL [facility] Interpretation and review of laboratory results Abnormal [facility] Potassium [Moles/Vol] 3.4 mmol/L Low 3.5 - 5.1 mmol/L [facility] Protein [Mass/Vol] 5.8 g/dL Low 6.4 - 8.3 g/dL [facility] Sodium [Moles/Vol] 142 mmol/L 136 - 145 mmol/L [facility] Urea nitrogen [Mass/Vol] 26 mg/dL High 9 - 23 mg/d L [facility] Consulton 04-08-2025 Consult Normal [facility] Laboratory - Chemistry and C hemistry - challengeOrdered By: Renay Chan on 04-08-2025 Base excess Calc (Bld) [Moles/Vol] 11.2 mmol/L High -3.0 - 3.0 mmol/L [facility] CO2 (Bld) [Partial pressure] 75.1 mm[Hg] High [facility] CO2 [Moles/Vol] 41.2 mmol/L High 22.0 - 28.0 mmol/L [facility] HCO3 (Bld) [Moles/Vol] 38.9 mmol/L High 21.0 - 27.0 mmol/L [facility] Oxygen (Bld) [Partial pressure] 104 mm[Hg] [facility] pH (Bld) 7.332 [pH] Low 7.350 - 7.450 [facility] Laboratory - Chemistry and C hemistry - challengeOrdered By: Sallie Powell on 04-08-2025 Base excess Calc (Bld) [Moles/Vol] 9.9 mmol/L High -3.0 - 3.0 mmol/L [facility] CO2 (Bld) [Partial pressure] 80.1 mm[Hg] Critically high [facility] CO2 [Moles/Vol] 40.6 mmol/L High 22.0 - 28.0 mmol/L [facility] HCO3 (Bld) [Moles/Vol] 38.2 mmol/L High 21.0 - 27.0 mmol/L [facility] Oxygen (Bld) [Partial pressure] 92 mm[Hg] [facility] pH (Bld) 7.296 [pH] Low 7.350 - 7.450 [facility] Laboratory - Chemistry and C hemistry - challengeon 04-08-2025 Glucose [Mass/Vol] 100 mg/dL 70 - 100 mg/dL [facility] Magnesium [Mass/Vol] 1.6 mg/dL 1.6 - 2 .6 mg/dL [facility] Laboratory - Hematology and Cell countsOrdered By: Renay Chan on 04-08-2025 Hemoglobin (Bld) [Mass/Vol] 8.4 g/dL Low 13.5 - 17.5 g/dl [facility] Laboratory - Hematology and Cell countsOrdered By: Sallie Powell on 04-08-2025 Hemoglobin (Bld) [Mass/Vol] 8.6 g/dL Low 13.5 - 17.5 g/dl [facility] Laboratory - Hematology and Cell countson 04-08-2025 Anisocytosis Ql (Bld) Moderate Abnormal (none) [facility] Basophils (Bld) [#/Vol] 0.1 10*3/uL 0.0 - 0.2 10*3/uL [facility] Basophils/100 WBC (Bld) 1 % 0 - 2 % [facility] Hypochromia Ql (Bld) Moderate Abnormal (none) [facility] Lymphocytes (Bld) [#/Vol] 1.8 10*3/uL 1.0 - 4.3 10*3/uL [facility] Lymphocytes/100 WBC (Bld) 14 % Low 15 - 45 % [facility] Monocytes (Bld) [#/Vol] 1.6 10*3/uL High 0.0 - 0.9 10*3/uL [facility] Monocytes/100 WBC (Bld) 12 % 5 - 13 % [facility] Neutrophils (Bld) [#/Vol] 9.6 10*3/uL High 1.8 - 7.5 10*3/uL [facility] Ovalocytes LM Ql (Bld) Slight Abnormal (none) [facility] Poikilocytosis LM Ql (Bld) Moderate Abnormal (none) [facility] RBC morphology finding Nom (Bld) abnormal [facility] Segmented neutrophils/100 WBC (Bld) 74 % 38 - 82 % [facility] Stomatocytes LM Ql (Bld) Moderate Abnormal (none) [facility] MAGNESIUMon 04-08-2025 Magnesium [Mass/Vol] 1.6 mg/dL Normal 1.6-2.6 [facility] Comment on above: Result Comment: YARELI [place] COMMENTS:Higher values can be expected in females during menses. Performed By: #### L [id number], [id number] ####Finishing Supervisor [employer]astic Sheets: UNA ARCE ([phone])[facility] [place] (SB[facility]AB)[address] MANUAL DIFFERENTIAL (CELLAVI BANDAR)on 04-08-2025 ANISOCYTOSIS PRESENCE IN BLOOD BY LIGHT MICROSCOPY Moderate Abnormal (none) [facility] Comment on above: Performed By: #### L [id number], [id number] ####Finishing Supervisor [employer]astic Sheets: UNA ARCE ([phone])[facility] [place] ([facility])[address] BAND NEUTROPHILS TOTAL PER COUNTED LEUKOCYTES BY MANUAL COUNT Normal [facility] Comment on above: Performed By: #### L [id number], [id number] ####Finishing Supervisor Plastic Sheets: UNA ARCE ([id number])[facility] (SBHLAB)[address] [place] [address] [place] BASOPHILS (10*3/UL) IN BLOOD-CELLAVISION 0.1 10*3/uL Normal 0.0-0.2 [facility] Comment on above: Performed By: #### L [id number], [id number] ####Finishing Supervisor Plastic Sheets: UNA ARCE ([phone])[facility] [place] (SB[facility])[address] [place] [address] [place] BASOPHILS TOTAL PER COUNTED LEUKOCYTES BY MANUAL COUNT 1 Normal [facility] Comment on above: Performed By: #### L [id number], [id number] ####Finishing Supervisor Plastic Sheets: UNA ARCE ([phone])[facility] [place] (SB[facility]AB)[address] [place] [address] [place] BASOPHILS/100 LEUKOCYTES IN BLOOD-CELLAVISION 1 % Normal 0-2 [facility] Comment on above: Performed By: #### L [id number], [id number] ####Finishing Supervisor Plastic Sheets: UNA ARCE ([phone])[facility] [place] (SBHLAB)[address] [place] [address] [place] BLASTS TOTAL PER COUNTED LEUKOCYTES BY MANUAL COUNT Normal [facility] Comment on above: Performed By: #### L [id number], [id number] ####Finishing Supervisor [employer]astic Sheets: UNA MOHRCER ([phone])[facility] [place] (SBHLAB)[address] [place] [address] [place] EOSINOPHILS TOTAL PER COUNTED LEUKOCYTES BY MANUAL COUNT Normal [facility] Comment on above: Performed By: #### L [id number], [id number] ####Finishing Supervisor Plastic Sheets: UNA ARCE ([phone])[facility] [place] ([facility])[address] HYPOCHROMIA (PRESENCE) IN BLOOD BY LIGHT MICROSCOPY Moderate Abnormal (none) [facility] Comment on above: Performed By: #### L [id number], [id number] ####Finishing Supervisor Plastic Sheets: UNAANJEL ARCE ([phone])[facility] [place] ([facility])[address] [place] [address] [place] LYMPHOCYTES (10*3/UL) IN BLOOD-CELLAVISION 1.8 10*3/uL Normal 1.0-4.[address] [facility] Comment on above: Performed By: #### L [id number], [id number] ####Finishing Supervisor Plastic Sheets: UNAANJEL ARCE ([phone])[facility] [place] (SB[facility])[address] [place] [address] [place] LYMPHOCYTES TOTAL PER COUNTED LEUKOCYTES BY MANUAL COUNT [address] [facility] Comment on above: Performed By: #### L [id number], [id number] ####Finishing Supervisor Plastic Sheets: UNA YAZMIN ([id number])[facility] [place] (SB[facility])[address] [place] [address] [place] LYMPHOCYTES/100 LEUKOCYTES IN BLOOD-CELLAVISION 14 % Low 15-[address] [facility] Comment on above: Performed By: #### L [id number], [id number] ####Finishing Supervisor Plastic Sheets: UNA ARCE ([phone])[facility] [place] (SBHLAB)[address] [place] [address] [place] METAMYELOCYTES TOTAL PER COUNTED LEUKOCYTES BY MANUAL COUNT [facility] Comment on above: Performed By: #### L [id number], [id number] ####Finishing Supervisor Plastic Sheets: UNA STAUFFERMELANIE ([phone])[facility] [place] ([facility])[address] [place] [address] [place] MONOCYTES (10*3/UL) IN BLOOD-CELLAVISION 1.6 10*3/uL High 0.0-0.[address] [facility] Comment on above: Performed By: #### L [id number], [id number] ####Finishing Supervisor Plastic Sheets: UNA STAUFFERMELANIE ([phone])[facility] [place] (SB[facility])[address] [place] [address] [place] MONOCYTES TOTAL PER COUNTED LEUKOCYTES BY MANUAL COUNT 12 Normal [facility] Comment on above: Performed By: #### L [id number], [id number] ####Finishing Supervisor Plastic Sheets: UNA STAUFFERMELANIE ([phone])[facility] [place] (SB[facility])[address] [place] [address] [place] MONOCYTES/100 LEUKOCYTES IN BLOOD-LUCIANA 12 % Normal -[address] [facility] Comment on above: Performed By: #### L [id number], [id number] ####Finishing Supervisor Plastic Sheets: UNA ARCE ([id number])[facility] [place] ([facility])[address] [place] [address] [place] MYELOCYTES COUNTED BY MANUAL COUNT [facility] Comment on above: Performed By: #### L [id number], [id number] ####Finishing Supervisor Plastic Sheets: UNA ARCE ([phone])[facility] [place] ([facility])[address] [place] [address] [place] NEUTROPHILS TOTAL PER COUNTED LEUKOCYTES BY MANUAL COUNT 75 Normal [facility] Comment on above: Performed By: #### L [id number], [id number] ####Finishing Supervisor Plastic Sheets: UNA ARCE ([phone])[facility] [place] (SBHLAB)[address] [place] [address] [place] OVALOCYTES PRESENCE IN BLOOD BY LIGHT MICROSCOPY Slight Abnormal (none) [facility] Comment on above: Performed By: #### L [id number], [id number] ####Finishing Supervisor Plastic Sheets: UNA ARCE ([phone])[facility] [place] ([facility])[address] [place] [address] [place] POIKILOCYTOSIS (PRESENCE) IN BLOOD BY LIGHT MICROSCOPY Moderate Abnormal (none) [facility] Comment on above: Performed By: #### L [id number], [id number] ####Finishing Supervisor Plastic Sheets: UNA ARCE ([id number])[facility] [place] ([facility])[address] [place] [address] [place] PROMYELOCYTES TOTAL PER COUNTED LEUKOCYTES BY MANUAL COUNT Normal [facility] Comment on above: Performed By: #### L [id number], [id number] ####Finishing Supervisor Plastic Sheets: UNA ARCE ([id number])[facility] [place] (SB[facility])[address] [place] [address] [place] RBC MORPHOLOGY IN BLOOD abnormal Normal [facility] Comment on above: Performed By: #### L [id number], [id number] ####Finishing Supervisor Plastic Sheets: UNA ARCE ([id number])[facility] [place] ([facility])[address] [place] [address] [place] SEGMENTED NEUTROPHILS (10*3/UL) IN BLOOD-CELLAVISION 9.6 10*3/uL High 1.8-7.5 [facility] Comment on above: Performed By: #### L [id number], [id number] ####Finishing Supervisor Plastic Sheets: UNA ARCE ([id number])[facility] [place] ([facility])[address] [place] [address] [place] SEGMENTED NEUTROPHILS/100 LEUKOCYTES-CE 74 % Normal 38-82 [facility] Comment on above: Performed By: #### L [id number], [id number] ####Finishing Supervisor Plastic Sheets: UNA ARCE ([phone])[facility] [place] (SBHLAB)[address] STOMATOCYTES IN BLOOD BY LIGHT MICROSCOPY Moderate Abnormal (none) [facility] Comment on above: Performed By: #### L [id number], [id number] ####Finishing Supervisor Plastic Sheets: UNA ARCE ([id number])[facility] (SBHLAB)[address] UNCLASSIFIED CELLS TOTAL PER COUNTED LEUKOCYTES BY MANUAL COUNT Normal [facility] Comment on above: Performed By: #### L [id number], [id number] ####Finishing Supervisor Plastic Sheets: UNA ARCE ([id number])[facility] (SBHLAB)[address] VARIANT LYMPHOCYTES TOTAL PER COUNTED LEUKOCYTES BY MANUAL COUNT Normal [facility] Comment on above: Performed By: #### L [id number], [id number] ####Finishing Supervisor Plastic Sheets: UNA ARCE ([phone])[facility] (SBHLAB)[address] Magnesium [Mass/Vol]on 04-08 Interpretation and review of laboratory results Normal [facility] No Panel InformationOrdered By: Renay Chan on 04-08-2025 Amount Of Oxygen 0.40 [facility] Interpretation and review of laboratory results Abnormal [facility] Source Of Oxygen Non-Invasive Ventilator [facility] No Panel InformationOrdered By: Sallie Powell on 04-08-2025 Amount Of Oxygen 4 liters [facility] Interpretation and review of laboratory results Abnormal [facility] Source Of Oxygen Nasal Cannula (LPM) [facility] No Panel Informationon 04-08 Interpretation and review of laboratory results Normal [facility] Basophils Manual 1 [facility] Interpretation and review of laboratory results Abnormal [facility] Lymphocytes Manual 14 [facility] Monocytes Manual 12 [facility] Neutrophils Manual 75 [facility] Progress Noteon 04-08-2025 Progress Note Normal [facility] Progress Note Normal [facility] Progress Note Normal [facility] Progress Note Normal [facility] Progress Note Normal [facility] XR Chest Single viewon 04-08 [facility] Radiology Study observation (narrative) [facility] XR Chest Single viewOrdered By: Nelson Sow on 04-08-2025 [facility] Work Phone: CBC W Auto Differential pane l (Bld)Ordered By: Sharita Beck on 04-07-2025 Erythrocyte distribution width (RBC) [Ratio] 20.5 % High 11.5 - 15.0 % [facility] Hematocrit (Bld) [Volume fraction] 27.2 % Low 40.0 - 52.0 % [facility] Hemoglobin (Bld) [Mass/Vol] 7.4 g/dL Low 13.0 - 18.0 g/dL [facility] MCH (RBC) [Entitic mass] 21.8 pg Low 26. 0 - 34.0 pg [facility] MCHC (RBC) [Mass/Vol] 27.2 % Low 30.5 - 36.0 % [facility] MCV (RBC) [Entitic vol] 80 fL 77.0 - 99.0 fL [facility] Platelet mean volume (Bld) [Entitic vol] 9.8 fL 9.0 - 12.7 fL [facility] Platelets (Bld) [#/Vol] 346 10*3/uL 140 - 440 10*3/uL [facility] RBC (Bld) [#/Vol] 3.4 10*6/uL Low 4.40 - 5.9 0 10*6/uL [facility] WBC (Bld) [#/Vol] 11.5 10*3/uL High 3.6 - 10.7 10*3/uL [facility] CBC WITH AUTO DIFFERENTIALon 04-07-2025 Erythrocyte distribution width (RBC) [Ratio] 20.5 % High 11.5-15.[address] [facility] Comment on above: Performed By: #### L [id number], [id number] ####Finishing Supervisor Plastic Sheets: UNA ARCE ([phone])[facility] ([facility])[address] [place] [address] Hematocrit (Bld) [Volume fraction] 27.2 % Low 40.0-52.[address] [facility] Comment on above: Performed By: #### L [id number], [id number] ####Finishing Supervisor Plastic Sheets: UNA ARCE ([id number])[facility] SANCHEZCHRISTINAN (SBHLAB)[address] Hemoglobin (Bld) [Mass/Vol] 7.4 g/dL Low 13.0-18.0 [facility] Comment on above: Performed By: #### L [id number], [id number] ####Finishing Supervisor Plastic Sheets: UNA ARCE ([id number])[facility] (SBHLAB)[address] MCH (RBC) [Entitic mass] 21.8 pg Low 26.0-34.0 [facility] Comment on above: Performed By: #### L [id number], [id number] ####Finishing Supervisor Plastic Sheets: UNA ARCE ([phone])[facility] (SBHLAB)[address] MCHC 27.2 % Low 30.5-36.[address] [facility] Comment on above: Performed By: #### L [id number], [id number] ####Finishing Supervisor Plastic Sheets: UNA ARCE ([phone])[facility] (SBHLAB)[address] MCV (RBC) [Entitic vol] 80.0 fL Normal 77.0-99.0 [facility] Comment on above: Performed By: #### L [id number], [id number] ####Finishing Supervisor Plastic Sheets: UNA ARCE ([phone])[facility] (SBHLAB)[address] Platelet mean volume (Bld) [Entitic vol] 9.8 fL Normal 9.0-12.[address] [facility] Comment on above: Performed By: #### L [id number], [id number] ####Finishing Supervisor Plastic Sheets: UNA ARCE ([phone])[facility] (SBHLAB)[address] Platelets (Bld) [#/Vol] 346 10*3/uL Normal 140-[address] [facility] Comment on above: Performed By: #### L [id number], [id number] ####Finishing Supervisor Plastic Sheets: UNA ARCE ([phone])[facility] (SBHLAB)[address] RBC (Bld) [#/Vol] 3.40 10*6/uL Low 4.40-5.[address] [facility] Comment on above: Performed By: #### L [id number], [id number] ####Finishing Supervisor [employer]astic Sheets: UNA ARCE ([id number])[facility] (SBHLAB)[address] WBC (Bld) [#/Vol] 11.5 10*3/uL High 3.6-10.7 [facility] Comment on above: Performed By: #### L [id number], [id number] ####Finishing Supervisor Plastic Sheets: UNA ARCE ([id number])[facility] (SBHLAB)[address] COMPREHENSIVE METABOLIC PANE Anant 04-07-2025 Albumin [Mass/Vol] 2.4 g/dL Low 3.4-4.8 [facility] Comment on above: Performed By: #### L [id number], [id number] ####Finishing Supervisor [employer]astic Sheets: UNA ARCE ([phone])[facility] (SBHLAB)[address] ALP [Catalytic activity/Vol] 57 U/L Normal 40-[address] [facility] Comment on above: Performed By: #### L [id number], [id number] ####Finishing Supervisor Plastic Sheets: UNA ARCE ([phone])[facility] (SBHLAB)[address] ALT [Catalytic activity/Vol] U/L Normal <[address] [facility] Comment on above: Performed By: #### L [id number], [id number] ####Finishing Supervisor Plastic Sheets: UNA RACE ([id number])[facility] [place] (SBHLAB)[address] Anion gap [Moles/Vol] 14 mmol/L High 3-13 [facility] Comment on above: Performed By: #### L [id number], [id number] ####Finishing Supervisor [employer]astic Sheets: UNA ARCE ([phone])[facility] [place] ([facility])[address] AST [Catalytic activity/Vol] 23 U/L Normal <34 [facility] Comment on above: Performed By: #### L [id number], [id number] ####Finishing Supervisor [employer]astic Sheets: UNA ARCE ([id number])[facility] [place] ([facility])[address] Bilirubin [Mass/Vol] 0.7 mg/dL Normal <1.2 [facility] Comment on above: Performed By: #### L [id number], [id number] ####Finishing Supervisor Plastic Sheets: UNA ARCE ([phone])[facility] [place] ([facility])[address] Calcium [Mass/Vol] 7.9 mg/dL Low 8.8-10.0 [facility] Comment on above: Performed By: #### L [id number], [id number] ####Finishing Supervisor Plastic Sheets: UNA ARCE ([phone])[facility] [place] (SB[facility])[address] [place] [address] [place] Chloride [Moles/Vol] 98 mmol/L Normal 98-107 [facility] Comment on above: Performed By: #### L [id number], [id number] ####Finishing Supervisor Plastic Sheets: UNA ARCE ([phone])[facility] [place] (SB[facility])[address] [place] [address] [place] CO2 [Moles/Vol] 31 mmol/L Normal 23-31 [facility] Comment on above: Performed By: #### L [id number], [id number] ####Finishing Supervisor Plastic Sheets: UNA ARCE ([phone])[facility] [place] (SBHLAB)[address] Creatinine [Mass/Vol] 1.63 mg/dL High 0.72-1.25 [facility] Comment on above: Performed By: #### L [id number], [id number] ####Finishing Supervisor [employer]astic Sheets: UNA ARCE ([phone])[facility] B[facility]N (SBHLAB)[address] GLOMERULAR FILTRATION RATE ML/MIN/1.73 SQ M.PREDICTED 40.0 mL/min/1.73m*2 Low >60.0 [facility] Comment on above: Result Comment: Calc ulation based on the Chronic Kidney Disease Epidemiology Collaboration (CKD-EPI) equation refit without adjustment for race Performed By: #### L AB17, [id number] ####Finishing Supervisor [employer]astic Sheets: UNA ARCE ([id number])[facility] (SBHLAB)[address] Glucose [Mass/Vol] 88 mg/dL Normal 82-115 [facility] Comment on above: Performed By: #### L AB17, [id number] ####Finishing Supervisor Plastic Sheets: UNA ARCE ([phone])[facility] (SBHLAB)[address] Potassium [Moles/Vol] 3.6 mmol/L Normal 3.5-5.1 [facility] Comment on above: Result Comment: [facility] potassium values may be up to 0.5 mmol/L lower than serum values. Performed By: #### L AB17, [id number] ####Finishing Supervisor [employer]astic Sheets: UNA ARCE ([phone])[facility] (SBHLAB)[address] Protein [Mass/Vol] 5.7 g/dL Low 6.4-8.3 [facility] Comment on above: Performed By: #### L AB17, [id number] ####Finishing Supervisor Plastic Sheets: UNA ARCE ([phone])[facility] (SBHLAB)[address] [place] [address] [place] Sodium [Moles/Vol] 143 mmol/L Normal 136-145 [facility] Comment on above: Performed By: #### L AB17, [id number] ####Finishing Supervisor Plastic Sheets: UNA ARCE ([id number])[facility] (SBHLAB)[address] Urea nitrogen [Mass/Vol] 26 mg/dL High 9-23 [facility] Comment on above: Performed By: #### L AB17, [id number] ####Finishing Supervisor Plastic Sheets: UNA ARCE ([id number])[facility] (SBHLAB)[address] Comprehensive metabolic 1998 panelon 04-07-2025 Albumin [Mass/Vol] 2.4 g/dL Low 3.4 - 4.8 g/dL [facility] ALP [Catalytic activity/Vol] 57 U/L 40 - 150 U/L [facility] ALT [Catalytic activity/Vol] U/L NINF - 40 U/L [facility] Anion gap [Moles/Vol] 14 mmol/L High 3 - 13 mmol/L [facility] AST [Catalytic activity/Vol] 23 U/L NINF - 34 U/L [facility] Bilirubin [Mass/Vol] 0.7 mg/dL NINF - 1.2 mg/dL [facility] Calcium [Mass/Vol] 7.9 mg/dL Low 8.8 - 10. 0 mg/dL [facility] Chloride [Moles/Vol] 98 mmol/L 98 - 10 7 mmol/L [facility] CO2 [Moles/Vol] 31 mmol/L 23 - 31 mmol/L [facility] Creatinine [Mass/Vol] 1.63 mg/dL High 0.72 - 1.25 mg/dL [facility] GFR/1.73 sq M.predicted (S/P/Bld) [Vol rate/Area] 40 mL/min Low - PINF [facility] Glucose [Mass/Vol] 88 mg/dL 82 - 115 mg/dL [facility] Interpretation and review of laboratory results Abnormal [facility] Potassium [Moles/Vol] 3.6 mmol/L 3.5 - 5.1 mmol/L [facility] Protein [Mass/Vol] 5.7 g/dL Low 6.4 - 8.3 g/dL [facility] Sodium [Moles/Vol] 143 mmol/L 136 - 145 mmol/L [facility] Urea nitrogen [Mass/Vol] 26 mg/dL High 9 - 23 mg/d L [facility] Consulton 04-07-2025 Consult Normal [facility] Laboratory - Chemistry and C hemistry - challengeon 04-07-2025 Magnesium [Mass/Vol] 1.7 mg/dL 1.6 - 2 .6 mg/dL [facility] Laboratory - Hematology and Cell countson 04-07-2025 Anisocytosis Ql (Bld) Slight Abnormal (none) [facility] Eosinophils (Bld) [#/Vol] 0.3 10*3/uL 0.0 - 0.5 10*3/uL [facility] Eosinophils/100 WBC (Bld) 3 % 0 - 6 % [facility] Hypochromia Ql (Bld) Moderate Abnormal (none) [facility] Lymphocytes (Bld) [#/Vol] 0.9 10*3/uL Low 1.0 - 4.3 10*3/uL [facility] Lymphocytes/100 WBC (Bld) 8 % Low 15 - 45 % [facility] Monocytes (Bld) [#/Vol] 0.8 10*3/uL 0.0 - 0.9 10*3/uL [facility] Monocytes/100 WBC (Bld) 7 % 5 - 13 % [facility] Neutrophils (Bld) [#/Vol] 9.5 10*3/uL High 1.8 - 7.5 10*3/uL [facility] Nucleated RBC/100 WBC (Bld) [Ratio] 1 % 0 - 2 % [facility] Poikilocytosis LM Ql (Bld) Slight Abnormal (none) [facility] RBC morphology finding Nom (Bld) abnormal [facility] Segmented neutrophils/100 WBC (Bld) 83 % High 38 - 82 % [facility] Stomatocytes LM Ql (Bld) Moderate Abnormal (none) [facility] MAGNESIUMon 04-07-2025 Magnesium [Mass/Vol] 1.7 mg/dL Normal 1.6-2.6 [facility] Comment on above: Result Comment: ORDE R COMMENTS:Higher values can be expected in females during menses. Performed By: #### L [id number], [id number] ####Finishing Supervisor [employer]astic Sheets: UNA ARCE ([phone])[facility] (SB[facility])[address] [place] [address] [place] MANUAL DIFFERENTIAL (CELLAVI BANDAR)on 04-07-2025 ANISOCYTOSIS PRESENCE IN BLOOD BY LIGHT MICROSCOPY Slight Abnormal (none) [facility] Comment on above: Performed By: #### L [id number], [id number] ####Finishing Supervisor [employer]astic Sheets: UNA ARCE ([phone])[facility] (SBHLAB)[address] BAND NEUTROPHILS TOTAL PER COUNTED LEUKOCYTES BY MANUAL COUNT Normal [facility] Comment on above: Performed By: #### L [id number], [id number] ####Finishing Supervisor [employer] Sheets: UNA ARCE ([phone])[facility] ([facility])[address] BASOPHILS TOTAL PER COUNTED LEUKOCYTES BY MANUAL COUNT Normal [facility] Comment on above: Performed By: #### L [id number], [id number] ####Finishing Supervisor [employer]astic Sheets: UNA ARCE ([phone])[facility] [place] ([facility] [place] [address] [place] BLASTS TOTAL PER COUNTED LEUKOCYTES BY MANUAL COUNT Normal [facility] Comment on above: Performed By: #### L [id number], [id number] ####Finishing Supervisor [employer]astic Sheets: UNA ARCE ([phone])[facility] [place] ([facility])[address] [place] [address] [place] EOSINOPHILS (10*3/UL) IN BLOOD-CELLAVISION 0.3 10*3/uL Normal 0.0-0.5 [facility] Comment on above: Performed By: #### L [id number], [id number] ####Finishing Supervisor [employer] Sheets: UNA ARCE ([phone])[facility] ([facility])[address] [place] [address] [place] EOSINOPHILS TOTAL PER COUNTED LEUKOCYTES BY MANUAL COUNT 3 High 0-[address] [facility] Comment on above: Performed By: #### L [id number], [id number] ####Finishing Supervisor [employer] Sheets: UNA STAUFFERMELANIE ([phone])[facility] ([facility])[address] [place] [address] [place] EOSINOPHILS/100 LEUKOCYTES IN BLOOD-CELLAVISION 3 % Normal 0-[address] [facility] Comment on above: Performed By: #### L [id number], [id number] ####Finishing Supervisor [employer] Sheets: UNA STAUFFERMELANIE ([phone])[facility] [place] ([facility])[address] [place] [address] [place] HYPOCHROMIA (PRESENCE) IN BLOOD BY LIGHT MICROSCOPY Moderate Abnormal (none) [facility] Comment on above: Performed By: #### L [id number], [id number] ####Finishing Supervisor [employer]astic Sheets: UNA BERMUDEZPEDRO ([phone])[facility] [place] ([facility])[address] [place] [address] [place] LYMPHOCYTES (10*3/UL) IN BLOOD-CELLAVISION 0.9 10*3/uL Low 1.0-4.[address] [facility] Comment on above: Performed By: #### L [id number], [id number] ####Finishing Supervisor [employer]astic Sheets: UNA STAUFFERMELANIE ([phone])[facility] [place] ([facility])[address] [place] [address] [place] LYMPHOCYTES TOTAL PER COUNTED LEUKOCYTES BY MANUAL COUNT [address] [facility] Comment on above: Performed By: #### L [id number], [id number] ####Finishing Supervisor Plastic Sheets: UNA STAUFFERMELANIE ([phone])[facility] [place] ([facility])[address] [place] [address] [place] LYMPHOCYTES/100 LEUKOCYTES IN BLOOD-CELLAVISION 8 % Low 15-[address] [facility] Comment on above: Performed By: #### L [id number], [id number] ####Finishing Supervisor Plastic Sheets: UNA STAUFFERMELANIE ([phone])[facility] [place] ([facility])[address] [place] [address] [place] METAMYELOCYTES TOTAL PER COUNTED LEUKOCYTES BY MANUAL COUNT Normal [facility] Comment on above: Performed By: #### L [id number], [id number] ####Finishing Supervisor [employer]astic Sheets: UNA STAUFFERMELANIE ([phone])[facility] [place] ([facility])[address] [place] [address] [place] MONOCYTES (10*3/UL) IN BLOOD-CELLAVISION 0.8 10*3/uL Normal 0.0-0.[address] [facility] Comment on above: Performed By: #### L [id number], [id number] ####Finishing Supervisor [employer]astic Sheets: UNA BERMUDEZPEDRO ([phone])[facility] [place] ([facility])[address] [place] [address] [place] MONOCYTES TOTAL PER COUNTED LEUKOCYTES BY MANUAL COUNT 7 Normal [facility] Comment on above: Performed By: #### L [id number], [id number] ####Finishing Supervisor Plastic Sheets: UNA BERMUDEZPEDRO ([phone])[facility] [place] ([facility])[address] [place] [address] [place] MONOCYTES/100 LEUKOCYTES IN BLOOD-LUCIANA 7 % Normal 5-[address] [facility] Comment on above: Performed By: #### L [id number], [id number] ####Finishing Supervisor Plastic Sheets: UNA BERMUDEZPEDRO ([phone])[facility] [place] ([facility])[address] MYELOCYTES COUNTED BY MANUAL COUNT [facility] Comment on above: Performed By: #### L [id number], [id number] ####Finishing Supervisor Plastic Sheets: UNA ARCE ([phone])[facility] [place] ([facility])[address] [place] [address] [place] NEUTROPHILS TOTAL PER COUNTED LEUKOCYTES BY MANUAL COUNT 86 Normal [facility] Comment on above: Performed By: #### L [id number], [id number] ####Finishing Supervisor Plastic Sheets: UNA ARCE ([phone])[facility] [place] ([facility])[address] [place] [address] [place] NUCLEATED ERYTHROCYTES/100 LEUKOCTES IN BLOOD-CELLAVISION 1 % Normal 0-[address] [facility] Comment on above: Performed By: #### L [id number], [id number] ####Finishing Supervisor Plastic Sheets: UNA ARCE ([phone])[facility] [place] ([facility])[address] [place] [address] [place] POIKILOCYTOSIS (PRESENCE) IN BLOOD BY LIGHT MICROSCOPY Slight Abnormal (none) [facility] Comment on above: Performed By: #### L [id number], [id number] ####Finishing Supervisor Plastic Sheets: UNA ARCE ([phone])[facility] [place] ([facility])[address] [place] [address] [place] PROMYELOCYTES TOTAL PER COUNTED LEUKOCYTES BY MANUAL COUNT Normal [facility] Comment on above: Performed By: #### L [id number], [id number] ####Finishing Supervisor Plastic Sheets: UNA ARCE ([phone])[facility] ([facility])[address] RBC MORPHOLOGY IN BLOOD abnormal Normal [facility] Comment on above: Performed By: #### L [id number], [id number] ####Finishing Supervisor Plastic Sheets: UNA ARCE ([phone])[facility] [place] ([facility])[address] [place] [address] [place] SEGMENTED NEUTROPHILS (10*3/UL) IN BLOOD-CELLAVISION 9.5 10*3/uL High 1.8-7.5 [facility] Comment on above: Performed By: #### L [id number], [id number] ####Finishing Supervisor Plastic Sheets: UNA ARCE ([phone])[facility] [place] ([facility])[address] [place] [address] [place] SEGMENTED NEUTROPHILS/100 LEUKOCYTES-CE 83 % High 38-82 [facility] Comment on above: Performed By: #### L [id number], [id number] ####Finishing Supervisor Plastic Sheets: UNA ARCE ([phone])[facility] [place] ([facility])[address] [place] [address] [place] STOMATOCYTES IN BLOOD BY LIGHT MICROSCOPY Moderate Abnormal (none) [facility] Comment on above: Performed By: #### L [id number], [id number] ####Finishing Supervisor Plastic Sheets: UNA ARCE ([phone])[facility] ([facility])[address] UNCLASSIFIED CELLS TOTAL PER COUNTED LEUKOCYTES BY MANUAL COUNT Normal [facility] Comment on above: Performed By: #### L [id number], [id number] ####Finishing Supervisor Plastic Sheets: UNA BERMUDEZPEDRO ([phone])[facility] ([facility])[address] VARIANT LYMPHOCYTES TOTAL PER COUNTED LEUKOCYTES BY MANUAL COUNT Normal [facility] Comment on above: Performed By: #### L [id number], [id number] ####Finishing Supervisor Plastic Sheets: UNA STAUFFERMELANIE ([phone])[facility] (SBHLAB)[address] Magnesium [Mass/Vol]on 04-07 Interpretation and review of laboratory results Normal [facility] No Panel Informationon 04-07 Eosinophils Manual 3 High 0 - 1 [facility] Lymphocytes Manual 8 [facility] Monocytes Manual 7 [facility] Neutrophils Manual 86 [facility] No Panel InformationOrdered By: Sharita Beck on 04-07-2025 Interpretation and review of laboratory results Abnormal [facility] Progress Noteon 04-07-2025 Progress Note Normal [facility] Progress Note Normal [facility] Progress [facility] Normal [facility] Progress [facility] Normal [facility] Progress Note Normal [facility] [id number] 04-06-2025 [id number] Normal [facility] CBC W Auto Differential pane l (Bld)Ordered By: Annmarie Zuñiga on 04-06-2025 Hematocrit (Bld) [Volume fraction] 27.2 % Low 40.0 - 52.0 % [facility] Hemoglobin (Bld) [Mass/Vol] 7.6 g/dL Low 13.0 - 18.0 g/dL [facility] MCH (RBC) [Entitic mass] 22 pg Low 26. 0 - 34.0 pg [facility] MCV (RBC) [Entitic vol] 78.6 fL 77.0 - 99.0 fL [facility] RBC (Bld) [#/Vol] 3.46 10*6/uL Low 4.40 - 5.9 0 10*6/uL [facility] CBC WITH AUTO DIFFERENTIALon 04-06-2025 Erythrocyte distribution width (RBC) [Ratio] 20.5 % High 11.5-15.0 [facility] Comment on above: Performed By: #### L [id number], [id number] ####Finishing Supervisor Plastic Sheets: UNA ARCE ([phone])[facility] (SB[facility])[address] [place] [address] Hematocrit (Bld) [Volume fraction] 27.2 % Low 40.0-52.0 [facility] Comment on above: Performed By: #### L [id number], [id number] ####Finishing Supervisor Plastic Sheets: UNA ARCE ([phone])[facility] [place] [address] Hemoglobin (Bld) [Mass/Vol] 7.6 g/dL Low 13.0-18.0 [facility] Comment on above: Performed By: #### L [id number], [id number] ####Finishing Supervisor Plastic Sheets: UNA ARCE ([phone])[facility] [place] [address] MCH (RBC) [Entitic mass] 22.0 pg Low 26.0-34.0 [facility] Comment on above: Performed By: #### L [id number], [id number] ####Finishing Supervisor Plastic Sheets: UNA ARCE ([phone])[facility] ([facility])[address] [place] [address] MCHC 27.9 % Low 30.5-36.0 [facility] Comment on above: Performed By: #### L [id number], [id number] ####Finishing Supervisor Plastic Sheets: UNA ARCE ([phone])[facility] ([facility])[address] [place] [address] MCV (RBC) [Entitic vol] 78.6 fL Normal 77.0-99.0 [facility] Comment on above: Performed By: #### L [id number], [id number] ####Finishing Supervisor Plastic Sheets: UNA ARCE ([phone])[facility] (SBHLAB)[address] [place] [address] Platelet mean volume (Bld) [Entitic vol] 9.7 fL Normal 9.0-12.7 [facility] Comment on above: Performed By: #### L [id number], [id number] ####Finishing Supervisor Plastic Sheets: UNA ARCE ([phone])[facility] (SB[facility])[address] Platelets (Bld) [#/Vol] 344 10*3/uL Normal 140-440 [facility] Comment on above: Performed By: #### L [id number], [id number] ####Finishing Supervisor Plastic Sheets: UNA ARCE ([phone])[facility] (SB[facility])[address] [place] [address] RBC (Bld) [#/Vol] 3.46 10*6/uL Low 4.40-5.90 [facility] Comment on above: Performed By: #### L [id number], [id number] ####Finishing Supervisor Plastic Sheets: UNA ARCE ([phone])[facility] (SB[facility])[address] [place] [address] WBC (Bld) [#/Vol] 10.3 10*3/uL Normal 3.6-10.7 [facility] Comment on above: Performed By: #### L [id number], [id number] ####Finishing Supervisor Plastic Sheets: UAN ARCE ([phone])[facility] (SB[facility])[address] COMPREHENSIVE METABOLIC PANE Anant 04-06-2025 Albumin [Mass/Vol] 2.6 g/dL Low 3.4-4.8 [facility] Comment on above: Performed By: #### L AB17, [id number] ####Finishing Supervisor Plastic Sheets: UNA ARCE ([phone])[facility] ([facility])[address] ALP [Catalytic activity/Vol] 63 U/L Normal 40-150 [facility] Comment on above: Performed By: #### L AB17, [id number] ####Finishing Supervisor Plastic Sheets: UNA ARCE ([phone])[facility] [place] ([facility])[address] [place] [address] [place] ALT [Catalytic activity/Vol] 6 U/L Normal <40 [facility] Comment on above: Performed By: #### L AB17, [id number] ####Finishing Supervisor Plastic Sheets: UNA ARCE ([phone])[facility] [place] ([facility])[address] Anion gap [Moles/Vol] 13 mmol/L Normal 3-13 [facility] Comment on above: Performed By: #### L AB17, [id number] ####Finishing Supervisor Plastic Sheets: UNA ARCE ([phone])[facility] [place] ([facility])[address] AST [Catalytic activity/Vol] 25 U/L Normal <34 [facility] Comment on above: Performed By: #### L AB17, [id number] ####Finishing Supervisor Plastic Sheets: UNA ARCE ([id number])[facility] [place] ([facility])[address] Bilirubin [Mass/Vol] 1.7 mg/dL High <1.2 [facility] Comment on above: Performed By: #### L AB17, [id number] ####Finishing Supervisor Plastic Sheets: UNA ARCE ([phone])[facility] [place] ([facility])[address] [place] [address] [place] Calcium [Mass/Vol] 8.2 mg/dL Low 8.8-10.[address] [facility] Comment on above: Performed By: #### L AB17, [id number] ####Finishing Supervisor Plastic Sheets: UNA ARCE ([phone])[facility] [place] ([facility])[address] Chloride [Moles/Vol] 104 mmol/L Normal 98-107 [facility] Comment on above: Performed By: #### L AB17, [id number] ####Finishing Supervisor Plastic Sheets: UNA ARCE ([phone])[facility] ([facility])[address] CO2 [Moles/Vol] 26 mmol/L Normal 23-31 [facility] Comment on above: Performed By: #### L AB17, [id number] ####Finishing Supervisor Plastic Sheets: UNA ARCE ([id number])[facility] ([facility])[address] Creatinine [Mass/Vol] 1.44 mg/dL High 0.72-1.25 [facility] Comment on above: Performed By: #### L AB17, [id number] ####Finishing Supervisor Plastic Sheets: UNA ARCE ([phone])[facility] ([facility])[address] GLOMERULAR FILTRATION RATE ML/MIN/1.73 SQ M.PREDICTED 46.4 mL/min/1.73m*2 Low >60.0 [facility] Comment on above: Result Comment: Calc ulation based on the Chronic Kidney Disease Epidemiology Collaboration (CKD-EPI) equation refit without adjustment for race Performed By: #### L AB17, [id number] ####Finishing Supervisor Plastic Sheets: UNA ARCE ([phone])[facility] ([facility])[address] Glucose [Mass/Vol] 98 mg/dL Normal 82-115 [facility] Comment on above: Performed By: #### L AB17, [id number] ####Finishing Supervisor Plastic Sheets: UNA ARCE ([phone])[facility] ([facility])[address] Potassium [Moles/Vol] 4.2 mmol/L Normal 3.5-5.1 [facility] Comment on above: Result Comment: [facility] potassium values may be up to 0.5 mmol/L lower than serum values. Performed By: #### L AB17, [id number] ####Finishing Supervisor Plastic Sheets: UNA MOHRCER ([phone])[facility] ([facility])[address] Protein [Mass/Vol] 6.1 g/dL Low 6.4-8.3 [facility] Comment on above: Performed By: #### L AB17, [id number] ####Finishing Supervisor Plastic Sheets: UNA BERMUDEZPEDRO ([phone])[facility] ([facility])[address] Sodium [Moles/Vol] 143 mmol/L Normal 136-145 [facility] Comment on above: Performed By: #### L AB17, [id number] ####Finishing Supervisor Plastic Sheets: UNA BERMUDEZPEDRO ([phone])[facility] ([facility])[address] Urea nitrogen [Mass/Vol] 24 mg/dL High 9-23 [facility] Comment on above: Performed By: #### L AB17, [id number] ####Finishing Supervisor Plastic Sheets: UNA BREMUDEZPEDRO ([phone])[facility] ([facility])[address] ABDOMEN PELVIS WO IV CONT RASTon 04-06-2025 CT ABDOMEN PELVIS WO IV CONTRAST Normal [facility] CT Abdomen and Pelvis WO con traston 04-06-2025 [facility] Radiology Study observation (narrative) Lynette Balderrama alth CT Abdomen and Pelvis WO con trastOrdered By: Sergey Gooden on 04-06-2025 [facility] [email or web address] Phone: CT CHEST WO IV CONTRASTon CT CHEST WO IV CONTRAST Normal [facility] CT Chest WO contraston 04-06 [facility] Radiology Study observation (narrative) Monishaangel Balderrama alth CT Chest WO contrastOrdered By: Cari Lazaro on 04-06-2025 [facility] [email or web address] Phone: Consulton 04-06-2025 Consult Normal [facility] Consult Normal [facility] ECG 12-LEADon 04-06-2025 ECG 12-LEAD IMPRESSION: Sinus arrhythmia Nonspecific intraventricular conduction delay Probable anterolateral infarct, old No previous ECG for comparison Electronically Signed On 04-06-2025 01:54:21 EDT by Maik Laird Normal [facility] IRON AND TIBCon 04-06-2025 IRON BINDING CAPACITY 381 ug/dL Normal 250-450 [facility] Comment on above: Performed By: #### L [id number] ####Finishing Supervisor Plastic Sheets: UNA ARCE ([phone])[facility] [place] ([facility])[address] IRON SATURATION 49.3 % Normal 20.0-50.0 [facility] Comment on above: Performed By: #### L [id number] ####Finishing Supervisor Plastic Sheets: UNA ARCE ([phone])[facility] [place] ([facility])[address] IRON, TOTAL 188 ug/dL High 65-175 [facility] Comment on above: Performed By: #### L [id number] ####Finishing Supervisor Plastic Sheets: UNA ARCE ([phone])[facility] [place] ([facility])[address] Laboratory - Hematology and Cell countson 04-06-2025 Basophils (Bld) [#/Vol] 0.2 10*3/uL 0.0 - 0.2 10*3/uL [facility] Basophils/100 WBC (Bld) 2 % 0 - 2 % [facility] Lymphocytes (Bld) [#/Vol] 1.4 10*3/uL 1.0 - 4.3 10*3/uL [facility] Lymphocytes/100 WBC (Bld) 14 % Low 15 - 45 % [facility] Monocytes (Bld) [#/Vol] 0.7 10*3/uL 0.0 - 0.9 10*3/uL [facility] Monocytes/100 WBC (Bld) 7 % 5 - 13 % [facility] RBC morphology finding Nom (Bld) abnormal [facility] MAGNESIUMon 04-06-2025 Magnesium [Mass/Vol] 1.8 mg/dL Normal 1.6-2.6 [facility] Comment on above: Result Comment: ORDE R COMMENTS:Higher values can be expected in females during menses. Performed By: #### L AB17, [id number] ####Finishing Supervisor [employer]astic Sheets: UNA ARCE ([phone])[facility] ([facility])[address] MANUAL DIFFERENTIAL (CELLAVI BANDAR)on 04-06-2025 ANISOCYTOSIS PRESENCE IN BLOOD BY LIGHT MICROSCOPY Moderate Abnormal (none) [facility] Comment on above: Performed By: #### L [id number], [id number] ####Finishing Supervisor Plastic Sheets: UNA ARCE ([phone])[facility] ([facility])[address] BAND NEUTROPHILS TOTAL PER COUNTED LEUKOCYTES BY MANUAL COUNT 1 Normal [facility] Comment on above: Performed By: #### L [id number], [id number] ####Finishing Supervisor [employer]astic Sheets: UNA ARCE ([phone])[facility] [place] ([facility])[address] BANDS (10*3/UL) IN BLOOD-CELLAVISION 0.1 10*3/uL High <=0.0 [facility] Comment on above: Performed By: #### L [id number], [id number] ####Finishing Supervisor Plastic Sheets: UNA ARCE ([phone])[facility] (SB[facility])[address] [place] [address] [place] BASOPHILS (10*3/UL) IN BLOOD-CELLAVISION 0.2 10*3/uL Normal 0.0-0.2 [facility] Comment on above: Performed By: #### L [id number], [id number] ####Finishing Supervisor [employer]astic Sheets: UNA ARCE ([id number])[facility] ([facility])[address] BASOPHILS TOTAL PER COUNTED LEUKOCYTES BY MANUAL COUNT 2 Normal [facility] Comment on above: Performed By: #### L [id number], [id number] ####Finishing Supervisor Plastic Sheets: UNA YAZMIN ([id number])[facility] ([facility])[address] [place] [address] [place] BASOPHILS/100 LEUKOCYTES IN BLOOD-CELLAVISION 2 % Normal 0-2 [facility] Comment on above: Performed By: #### L [id number], [id number] ####Finishing Supervisor [employer] Sheets: UNA BERMUDEZPEDRO ([phone])[facility] [place] ([facility])[address] [place] [address] [place] BLASTS TOTAL PER COUNTED LEUKOCYTES BY MANUAL COUNT Normal [facility] Comment on above: Performed By: #### L [id number], [id number] ####Finishing Supervisor [employer] Sheets: UNA BERMUDEZPEDRO ([phone])[facility] [place] ([facility])[address] [place] [address] [place] EOSINOPHILS TOTAL PER COUNTED LEUKOCYTES BY MANUAL COUNT Normal [facility] Comment on above: Performed By: #### L [id number], [id number] ####Finishing Supervisor [employer] Sheets: UNA BERMUDEZPEDRO ([phone])[facility] [place] ([facility])[address] [place] [address] [place] HYPOCHROMIA (PRESENCE) IN BLOOD BY LIGHT MICROSCOPY Moderate Abnormal (none) [facility] Comment on above: Performed By: #### L [id number], [id number] ####Finishing Supervisor [employer]astic Sheets: UNA BERMUDEZPEDRO ([id number])[facility] [place] ([facility])[address] [place] [address] [place] LYMPHOCYTES (10*3/UL) IN BLOOD-CELLAVISION 1.4 10*3/uL Normal 1.0-4.[address] [facility] Comment on above: Performed By: #### L [id number], [id number] ####Finishing Supervisor [employer] Sheets: UNA BERMUDEZPEDRO ([phone])[facility] [place] ([facility])[address] [place] [address] [place] LYMPHOCYTES TOTAL PER COUNTED LEUKOCYTES BY MANUAL COUNT [address] [facility] Comment on above: Performed By: #### L [id number], [id number] ####Finishing Supervisor [employer] Sheets: UNA STAUFFERMELANIE ([phone])[facility] ([facility])[address] [place] [address] [place] LYMPHOCYTES/100 LEUKOCYTES IN BLOOD-CELLAVISION 14 % Low 15-[address] [facility] Comment on above: Performed By: #### L [id number], [id number] ####Finishing Supervisor [employer] Sheets: UNA BERMUDEZPEDRO ([phone])[facility] [place] ([facility])[address] [place] [address] [place] METAMYELOCYTES TOTAL PER COUNTED LEUKOCYTES BY MANUAL COUNT Normal [facility] Comment on above: Performed By: #### L [id number], [id number] ####Finishing Supervisor [employer]: UNA BERMUDEZPEDRO ([phone])[facility] [place] ([facility])[address] [place] [address] [place] MICROCYTES (PRESENCE) IN BLOOD BY LIGHT MICROSCOPY Slight Abnormal (none) [facility] Comment on above: Performed By: #### L [id number], [id number] ####Finishing Supervisor [employer]: UNA BERMUDEZPEDRO ([phone])[place] [facility] [place] ([facility] [place] [address] [place] MONOCYTES (10*3/UL) IN BLOOD-CELLAVISION 0.7 10*3/uL Normal 0.0-0.[address] [facility] Comment on above: Performed By: #### L [id number], [id number] ####Finishing Supervisor Plastic Sheets: UNA ARCE ([phone])[facility] [place] ([facility] [place] [address] [place] MONOCYTES TOTAL PER COUNTED LEUKOCYTES BY MANUAL COUNT [address] [facility] Comment on above: Performed By: #### L [id number], [id number] ####Finishing Supervisor [employer]astic Sheets: UNA STAUFFERMELANIE ([phone])[facility] [place] ([facility] [place] [address] [place] MONOCYTES/100 LEUKOCYTES IN BLOOD-LUCIANA 7 % Normal 5-[address] [facility] Comment on above: Performed By: #### L [id number], [id number] ####Finishing Supervisor [employer]astic Sheets: UNA ARCE ([phone])[facility] [place] ([facility])[address] [place] [address] [place] MYELOCYTES COUNTED BY MANUAL COUNT Normal [facility] Comment on above: Performed By: #### L [id number], [id number] ####Finishing Supervisor [employer]astic Sheets: UNA ARCE ([phone])[facility] [place] ([facility])[address] [place] [address] [place] NEUTROPHILS BAND FORM/100 LEUKOCYTES IN BLOOD-CELLAVISI 1 % High <=[address] [facility] Comment on above: Performed By: #### L [id number], [id number] ####Finishing Supervisor [employer] Sheets: UNA ARCE ([phone])[facility] [place] ([facility] [place] [address] [place] NEUTROPHILS TOTAL PER COUNTED LEUKOCYTES BY MANUAL COUNT 79 Normal [facility] Comment on above: Performed By: #### L [id number], [id number] ####Finishing Supervisor [employer]astic Sheets: UNA ARCE ([phone])[facility] [place] ([facility])[address] [place] [address] [place] NUCLEATED ERYTHROCYTES/100 LEUKOCTES IN BLOOD-CELLAVISION 1 % Normal 0-[address] [facility] Comment on above: Performed By: #### L [id number], [id number] ####Finishing Supervisor [employer] Sheets: UNA ARCE ([phone])[facility] [place] ([facility] [place] [address] [place] POIKILOCYTOSIS (PRESENCE) IN BLOOD BY LIGHT MICROSCOPY Slight Abnormal (none) [facility] Comment on above: Performed By: #### L [id number], [id number] ####Finishing Supervisor [employer]astic Sheets: UNA ARCE ([phone])[facility] [place] ([facility] [place] [address] [place] PROMYELOCYTES TOTAL PER COUNTED LEUKOCYTES BY MANUAL COUNT Normal [facility] Comment on above: Performed By: #### L [id number], [id number] ####Finishing Supervisor [employer]astic Sheets: UNA ARCE ([id number])[facility] [place] ([facility])[address] [place] [address] [place] RBC MORPHOLOGY IN BLOOD abnormal Normal [facility] Comment on above: Performed By: #### L [id number], [id number] ####Finishing Supervisor [employer]astic Sheets: UNA ARCE ([phone])[facility] [place] ([facility] [place] [address] [place] SEGMENTED NEUTROPHILS (10*3/UL) IN BLOOD-CELLAVISION 8.0 10*3/uL High 1.8-7.5 [facility] Comment on above: Performed By: #### L [id number], [id number] ####Finishing Supervisor Plastic Sheets: UNA ARCE ([id number])[facility] [place] ([facility] [place] [address] [place] SEGMENTED NEUTROPHILS/100 LEUKOCYTES-CE 77 % Normal 38-82 [facility] Comment on above: Performed By: #### L [id number], [id number] ####Finishing Supervisor [employer]astic Sheets: UNA ARCE ([phone])[facility] [place] ([facility] [place] [address] [place] STOMATOCYTES IN BLOOD BY LIGHT MICROSCOPY Slight Abnormal (none) [facility] Comment on above: Performed By: #### L [id number], [id number] ####Finishing Supervisor [employer]astic Sheets: UNA ARCE ([phone])[facility] [place] ([facility] [place] [address] [place] UNCLASSIFIED CELLS TOTAL PER COUNTED LEUKOCYTES BY MANUAL COUNT [facility] Comment on above: Performed By: #### L [id number], [id number] ####Finishing Supervisor Plastic Sheets: UNA ARCE ([phone])[facility] [place] ([facility])[address] [place] [address] [place] VARIANT LYMPHOCYTES TOTAL PER COUNTED LEUKOCYTES BY MANUAL COUNT Normal [facility] Comment on above: Performed By: #### L [id number], [id number] ####Finishing Supervisor Plastic Sheets: UNA ARCE ([phone])[facility] [place] ([facility])[address] [place] [address] [facility] Nursing Noteon 04-06-2025 Nursing Note Normal [facility] Nursing Note Transfused two pint of blood. No any allergic reaction seen.vital signs are within normal limits. Normal [facility] Progress Noteon 04-06-2025 Progress Note [facility] Progress Note Normal [facility] US Heart TransthoracicOrdere d By: Thomas Hinton on 04-06-2025 Ao Root Index 1.47 cm/m2 [facility] Work Phone: Aortic Root 3 cm [facility] Work Phone: Aortic valve Mean systole pressure gradient by US.doppler derived full Bernoulli 7 mmHg [facility] Work Phone: Aortic valve Orifice area by US 3.1 cm2 [facility] Work Phone: Aortic valve Peak systolic flow by US.doppler 1.3 m/s [facility] Work Phone: Ascending Aorta 3.1 [facility] Work Phone: Ascending Aorta Index 1.52 cm/m2 [facility] Work Phone: AV Area by Peak Velocity 1.5 cm2 [facility] Work Phone: AV Area by VTI 1.3 cm2 [facility] Work Phone: AV Peak Gradient 15 mmHg [facility] Work Phone: AV Peak Velocity 1.9 m/s [facility] Work Phone: AV Velocity Ratio 0.47 [facility] Work Phone: AV VTI 37.4 cm [facility] Work Phone: JULIET/BSA Peak Velocity 0.7 cm2/m2 [facility] Work Phone: JULIET/BSA VTI 0.6 cm2/m2 [facility] Work Phone: E/E' Lateral 23 [facility] Work Phone: Est. RA Pressure 15 mmHg [facility] Work Phone: Fractional Shortening 2D 8 % 28 - 44 % [facility] Work Phone: Interpretation and review of laboratory results Abnormal [facility] Work Phone: IVSd 1.1 cm Abnormal 0.6 - 1.0 cm [facility] Work Phone: LA Diameter 4 cm [facility] Work Phone: LA Size Index 1.96 cm/m2 [facility] Work Phone: LA Volume 4C 56 mL 18 - 58 mL [facility] Work Phone: LA Volume Index 4C 27 mL/m2 16 - 34 mL/m2 [facility] Work Phone: LA/AO Root Ratio 1.33 [facility] Work Phone: Left ventricular Ejection fraction by US.2D+Calculated by biplane method of disks 22 % Abnormal 55 - 100 % [facility] Work Phone: LV E' Lateral Velocity 5 cm/s [facility] Work Phone: LV EDV A2C 331 mL [facility] Work Phone: LV EDV A4C 293 mL [facility] Work Phone: LV EDV BP 315 mL Abnormal 67 - 155 mL [facility] Work Phone: LV EDV Index A2C 162 mL/m2 [facility] Work Phone: LV EDV Index A4C 144 mL/m2 [facility] Work Phone: LV EDV Index BP 154 mL/m2 [facility] Work Phone: LV Ejection Fraction A2C 26 % [facility] Work Phone: LV Ejection Fraction A4C 22 % [facility] Work Phone: LV ESV A2C 245 mL [facility] Work Phone: LV ESV A4C 229 mL [facility] Work Phone: LV ESV BP 247 mL Abnormal 22 - 58 mL [facility] Work Phone: LV ESV Index A2C 120 mL/m2 [facility] Work Phone: LV ESV Index A4C 112 mL/m2 [facility] Work Phone: LV ESV Index BP 121 mL/m2 [facility] Work Phone: LV Mass 2D 246.9 g Abnormal 88 - 224 g [facility] Work Phone: LV Mass 2D Index 121 g/m2 Abnormal 49 - 115 g/m2 [facility] Work Phone: LV RWT Ratio 0.3 [facility] Work Phone: LVIDd 6 cm Abnormal 4.2 - 5.9 cm [facility] Work Phone: LVIDd Index 2.94 cm/m2 [facility] Work Phone: LVIDs 5.5 cm [facility] Work Phone: LVIDs Index 2.7 cm/m2 [facility] Work Phone: LVOT Cardiac Output 3.2 liter/minute [facility] Work Phone: LVOT Diameter 2 cm [facility] Work Phone: LVOT Mean Gradient 2 mmHg [facility] Work Phone: LVOT Peak Gradient 3 mmHg [facility] Work Phone: LVOT Peak Velocity 0.9 m/s [facility] Work Phone: LVOT Stroke Volume Index 23.2 mL/m2 [facility] Work Phone: LVOT SV 47.4 ml [facility] Work Phone: LVOT VTI 15.1 cm [facility] Work Phone: LVOT:AV VTI Index 0.4 [facility] Work Phone: LVPWd 0.9 cm 0.6 - 1.0 cm [facility] Work Phone: MR VTI 139.2 cm [facility] Work Phone: MV A Velocity 1.12 m/s [facility] Work Phone: MV E Velocity 1.15 m/s [facility] Work Phone: MV E Wave Deceleration Time 179.2 ms [facility] Work Phone: MV E/A 1.03 [facility] Work Phone: MV Nyquist Velocity 36 cm/s [facility] Work Phone: MV Regurg Velocity PISA 4.6 m/s S [facility] [employer] Work Phone: RA Area 4C 34.5 mL [facility] Work Phone: RV Free Wall Peak S' 13 cm/s [facility] Work Phone: RVSP 66 mmHg [facility] Work Phone: TAPSE 2.4 cm 1.7 cm [facility] Work Phone: TR Max Velocity 3.58 m/s [facility] Work Phone: TR Peak Gradient 51 mmHg [facility] Work Phone: [facility] Work Phone: US Heart Transthoracicon CV CPACS BASIC METABOLIC PANELon 03-10 Anion gap [Moles/Vol] 8 mmol/L Normal 3-13 [facility] Comment on above: Performed By: #### L [id number], LAB15, [id number], LAB20, LAB69, [id number], [id number], LAB89 ####Finishing Supervisor Plastic Sheets: UNA ARCE ([phone])[facility] [place] ([facility])[address] Calcium [Mass/Vol] 8.4 mg/dL Low 8.8-10.0 [facility] Comment on above: Performed By: #### L [id number], LAB15, [id number], LAB20, LAB69, [id number], [id number], LAB89 ####Finishing Supervisor Plastic Sheets: UNA ARCE ([phone])[facility] ([facility])[address] Chloride [Moles/Vol] 105 mmol/L Normal 98-107 [facility] Comment on above: Performed By: #### L [id number], LAB15, [id number], LAB20, LAB69, [id number], [id number], LAB89 ####Finishing Supervisor Plastic Sheets: UNA ARCE ([id number])[facility] ([facility])[address] CO2 [Moles/Vol] 27 mmol/L Normal 23-31 [facility] Comment on above: Performed By: #### L [id number], LAB15, RDS332, LAB20, LAB69, [id number], [id number], LAB89 ####Finishing Supervisor Plastic Sheets: UNA ARCE ([id number])[facility] ([facility])[address] Creatinine [Mass/Vol] 1.46 mg/dL High 0.72-1.25 [facility] Comment on above: Performed By: #### L [id number], LAB15, [id number], LAB20, LAB69, ATW175, [id number], LAB89 ####Finishing Supervisor Plastic Sheets: UNA ARCE ([id number])[facility] ([facility])[address] GLOMERULAR FILTRATION RATE ML/MIN/1.73 SQ M.PREDICTED 45.7 mL/min/1.73m*2 Low >60.0 [facility] Comment on above: Result Comment: Calc ulation based on the Chronic Kidney Disease Epidemiology Collaboration (CKD-EPI) equation refit without adjustment for race Performed By: #### L [id number], LAB15, [id number], LAB20, LAB69, [id number], [id number], LAB89 ####Finishing Supervisor Plastic Sheets: UNA ARCE ([phone])[facility] ([facility])[address] Glucose [Mass/Vol] 108 mg/dL Normal 82-115 [facility] Comment on above: Performed By: #### L AB67, LAB15, ZVD721, LAB20, LAB69, [id number], [id number], LAB89 ####Finishing Supervisor Plastic Sheets: UNA ARCE ([phone])[facility] ([facility])[address] Potassium [Moles/Vol] 4.5 mmol/L Normal 3.5-5.1 [facility] Comment on above: Result Comment: [facility] potassium values may be up to 0.5 mmol/L lower than serum values. Performed By: #### L [id number], LAB15, [id number], LAB20, LAB69, [id number], [id number], LAB89 ####Finishing Supervisor [employer]astic Sheets: UNA ARCE ([id number])[facility] Sodium [Moles/Vol] 140 mmol/L Normal 136-145 [facility] Comment on above: Performed By: #### L AB67, LAB15, SLP927, LAB20, LAB69, FEH104, [id number], LAB89 ####Finishing Supervisor Plastic Sheets: UNA ARCE ([phone])[facility] ([facility])[address] Urea nitrogen [Mass/Vol] 24 mg/dL High 9-23 [facility] Comment on above: Performed By: #### L AB67, LAB15, AYE460, LAB20, LAB69, [id number], [id number], LAB89 ####Finishing Supervisor Plastic Sheets: UNA ARCE ([phone])[facility] ([facility])[address] BLOOD TYPE AND SCREEN GELon 04-05-2025 ABO GROUPING A Normal [facility] Comment on above: Performed By: #### L [id number] ####Finishing Supervisor Plastic Sheets: UNA ARCE ([phone])[facility] ([facility])[address] [place] [address] RH TYPE IN BLOOD Negative Normal [facility] Comment on above: Performed By: #### L [id number] ####Finishing Supervisor Plastic Sheets: UNA ARCE ([phone])[facility] ([facility])[address] CBC WITH AUTO DIFFERENTIALon 04-05-2025 Erythrocyte distribution width (RBC) [Ratio] 19.9 % High 11.5-15.0 [facility] Comment on above: Performed By: #### L [id number], [id number], [id number] ####Finishing Supervisor Plastic Sheets: UNA ARCE ([id number])[facility] ([facility])[address] [place] [address] Hematocrit (Bld) [Volume fraction] 20.7 % Low 40.0-52.0 [facility] Comment on above: Performed By: #### L [id number], [id number], [id number] ####Finishing Supervisor Plastic Sheets: UNA ARCE ([phone])[facility] ([facility])[address] [place] [address] Hemoglobin (Bld) [Mass/Vol] 5.5 g/dL Critically low 13.0-18.0 [facility] Comment on above: Performed By: #### L [id number], [id number], [id number] ####Finishing Supervisor Plastic Sheets: UNA ARCE ([id number])[facility] [place] [address] MCH (RBC) [Entitic mass] 19.4 pg Low 26.0-34.0 [facility] Comment on above: Performed By: #### L [id number], [id number], [id number] ####Finishing Supervisor Plastic Sheets: UNA ARCE ([phone])[facility] ([facility])[address] MCHC 26.6 % Low 30.5-36.[address] [facility] Comment on above: Performed By: #### L [id number], [id number], [id number] ####Finishing Supervisor Plastic Sheets: UNA ARCE ([id number])[facility] ([facility])[address] MCV (RBC) [Entitic vol] 73.1 fL Low 77.0-99.0 [facility] Comment on above: Performed By: #### L [id number], [id number], [id number] ####Finishing Supervisor Plastic Sheets: UNA ARCE ([id number])[facility] ([facility])[address] Platelet mean volume (Bld) [Entitic vol] 9.4 fL Normal 9.0-12.7 [facility] Comment on above: Performed By: #### Gilbert [id number], [id number], [id number] ####Finishing Supervisor Plastic Sheets: UNA ARCE ([phone])[facility] ([facility])[address] Platelets (Bld) [#/Vol] 358 10*3/uL Normal 140-440 [facility] Comment on above: Performed By: #### L [id number], [id number], [id number] ####Finishing Supervisor Plastic Sheets: UNA ARCE ([id number])[facility] ([facility])[address] RBC (Bld) [#/Vol] 2.83 10*6/uL Low 4.40-5.90 [facility] Comment on above: Performed By: #### L [id number], [id number], [id number] ####Finishing Supervisor Plastic Sheets: UNA ARCE ([phone])[facility] [place] ([facility])[address] WBC (Bld) [#/Vol] 10.0 10*3/uL Normal 3.6-10.7 [facility] Comment on above: Performed By: #### L [id number], [id number], [id number] ####Finishing Supervisor Plastic Sheets: UNA ARCE ([phone])[facility] ([facility])[address] [place] [address] ED Provider Noteon ED Provider Note Normal [facility] FERRITINon 04-05-2025 Ferritin [Mass/Vol] 19 ng/mL Low 22-275 [facility] Comment on above: Result Comment: YARELI [place] COMMENTS:Ferritin levels below 10 ng/mL have been reported as indicative of iron deficiency anemia. Performed By: #### L [id number], LAB18, LAB68 ####Finishing Supervisor Plastic Sheets: UNA ARCE ([phone])[facility] ([facility])[address] [place] [address] FOLATEon 04-05-2025 FOLATE RESULT 13.7 ng/mL Normal 7.0-31.4 [facility] Comment on above: Performed By: #### L AB67, LAB15, KMM033, LAB20, LAB69, RMP951, [id number], LAB89 ####Finishing Supervisor Plastic Sheets: UNA ARCE ([phone])[facility] ([facility])[address] [place] [address] HAPTOGLOBINon 04-05-2025 HAPTOGLOBIN 226 mg/dL Normal 50-270 [facility] Comment on above: Performed By: #### L AB67, LAB15, KYQ686, LAB20, LAB69, ZZA597, [id number], LAB89 ####Finishing Supervisor Plastic Sheets: UNA ARCE ([phone])[facility] ([facility])[address] [place] [address] HEPATIC FUNCTION PANELon Albumin [Mass/Vol] 2.7 g/dL Low 3.4-4.8 [facility] Comment on above: Performed By: #### L AB67, LAB15, EYB154, LAB20, LAB69, KQX647, [id number], LAB89 ####Finishing Supervisor Plastic Sheets: UNA ARCE ([phone])[facility] ([facility])[address] ALP [Catalytic activity/Vol] 65 U/L Normal 40-150 [facility] Comment on above: Performed By: #### L AB67, LAB15, GAB785, LAB20, LAB69, [id number], [id number], LAB89 ####Finishing Supervisor Plastic Sheets: UNA ARCE ([id number])[facility] ([facility])[address] ALT [Catalytic activity/Vol] 7 U/L Normal <40 [facility] Comment on above: Performed By: #### L AB67, LAB15, DOV310, LAB20, LAB69, [id number], [id number], LAB89 ####Finishing Supervisor Plastic Sheets: UNA ARCE ([phone])[facility] AST [Catalytic activity/Vol] 22 U/L Normal <34 [facility] Comment on above: Performed By: #### L AB67, LAB15, XDI328, LAB20, LAB69, OSP470, [id number], LAB89 ####Finishing Supervisor Plastic Sheets: UNA ARCE ([phone])[facility] ([facility])[address] Bilirubin [Mass/Vol] 0.5 mg/dL Normal <1.2 [facility] Comment on above: Performed By: #### L AB67, LAB15, DTU510, LAB20, LAB69, PCE674, [id number], LAB89 ####Finishing Supervisor Plastic Sheets: UNA ARCE ([id number])[facility] ([facility])[address] [place] [address] [place] Bilirubin.indirect [Mass/Vol] 0.2 mg/dL Normal <0.5 [facility] Comment on above: Performed By: #### L AB67, LAB15, KYF181, LAB20, LAB69, YRW919, [id number], LAB89 ####Finishing Supervisor Plastic Sheets: UNA ARCE ([id number])[facility] [place] [address] Protein [Mass/Vol] 6.4 g/dL Normal 6.4-8.3 [facility] Comment on above: Result Comment: Seru m protein values are higher than plasma values. Samples from recumbent persons are lower by up to 0.5 g/dL as compared to ambulatory persons. After 60 years values are lower by up to 0.2 g/dL. Performed By: #### L AB67, LAB15, DRH804, LAB20, LAB69, DMK363, [id number], LAB89 ####Finishing Supervisor [employer]astic Sheets: UNA ARCE ([id number])[facility] ([facility])[address] [place] [address] HIGH SENSITIVITY TROPONIN, S ERIAL BASELINEon 04-05-2025 TROPONIN HS SERIAL BASELINE 29 ng/L Normal <=35 [facility] Comment on above: Result Comment: In i ndividuals presenting with symptoms > 2h, a baseline troponin <= 5 ng/L suggests acutecardiac injury is unlikely and further serial testing is generally not indicated. Performed By: #### L [id number] ####Finishing Supervisor [employer]astic Sheets: UNA ARCE ([phone])[facility] ([facility])[address] [place] [address] TROPONIN HS SERIAL BASELINE 30 ng/L Normal <=35 [facility] Comment on above: Result Comment: In i ndividuals presenting with symptoms > 2h, a baseline troponin <= 5 ng/L suggests acutecardiac injury is unlikely and further serial testing is generally not indicated. Performed By: #### L AB67, LAB15, GSH578, LAB20, LAB69, GZA777, [id number], LAB89 ####Finishing Supervisor [employer]astic Sheets: UNA ARCE ([id number])[facility] ([facility])[address] [place] [address] HIGH SENSITIVITY TROPONIN, S ERIAL, SECOND TESTon 04-05-2025 2H TROPONIN HS (SERIAL 2ND TROPONIN) 28 ng/L Normal <=35 [facility] Comment on above: Result Comment: 2h t roponin (2nd troponin) samples collected between 1h 40 min and 2h and 20 min of the baseline collection time can be utilized to interpret delta troponins as per [facility] algorithms. Samples collected outside this timeframe need to be interpreted clinically.Rising or falling troponin delta below 2 ng/L as compared to baseline value suggests thatacute cardiac injury is unlikely. Performed By: #### L [id number], LAB18, LAB68 ####Finishing Supervisor [employer]astic Sheets: UNA ARCE ([phone])[facility] ([facility])[address] LIPID PANELon 04-05-2025 Cholesterol [Mass/Vol] 89 mg/dL Normal <200 [facility] Comment on above: Performed By: #### Gilbert [id number], LAB18, LAB68 ####Finishing Supervisor Plastic Sheets: UNA ARCE ([id number])[facility] ([facility])[address] Cholesterol in HDL [Mass/Vol] 29 mg/dL Low >=60 [facility] Comment on above: Performed By: #### Gilbert [id number], LAB18, LAB68 ####Finishing Supervisor [employer]astic Sheets: UNA ARCE ([phone])[facility] ([facility])[address] Cholesterol.total/Choles terol in HDL [Mass ratio] 3 {ratio} Normal [facility] Comment on above: Result Comment: Ref Range:< 3 Low Risk for CHD3-6 Mod Risk for CHD> 6 High Risk for CHD Performed By: #### L [id number], LAB18, LAB68 ####Finishing Supervisor Plastic Sheets: UNA ARCE ([id number])[facility] ([facility])[address] LOW DENSITY LIPOPROTEIN 48 mg/dL Normal 0-<100 [facility] Comment on above: Performed By: #### L [id number], LAB18, LAB68 ####Finishing Supervisor Plastic Sheets: UNA ARCE ([phone])[facility] ([facility])[address] NON-HDL CHOLESTEROL, CALCULATED 60 Normal <130 [facility] Comment on above: Performed By: #### L [id number], LAB18, LAB68 ####Finishing Supervisor [employer]astic Sheets: UNA ARCE ([phone])[facility] [place] ([facility])[address] Triglyceride [Mass/Vol] 60 mg/dL Normal <150 [facility] Comment on above: Performed By: #### L [id number], LAB18, LAB68 ####Finishing Supervisor [employer]astic Sheets: UNA ARCE ([id number])[facility] ([facility])[address] VERY LOW DENSITY LIPOPROTEIN, CALCULATED 12 mg/dL Normal <=30 [facility] Comment on above: Performed By: #### L [id number], LAB18, LAB68 ####Finishing Supervisor Plastic Sheets: UNA ARCE ([phone])[facility] [place] ([facility])[address] MANUAL DIFFERENTIAL (CELLAVI BANDAR)on 04-05-2025 ANISOCYTOSIS PRESENCE IN BLOOD BY LIGHT MICROSCOPY Moderate Abnormal (none) [facility] Comment on above: Performed By: #### L [id number], [id number], [id number] ####Finishing Supervisor Plastic Sheets: UNA ARCE ([phone])[facility] ([facility])[address] [place] [address] BAND NEUTROPHILS TOTAL PER COUNTED LEUKOCYTES BY MANUAL COUNT [facility] Comment on above: Performed By: #### L [id number], [id number], [id number] ####Finishing Supervisor Plastic Sheets: UNA ARCE ([phone])[facility] [place] ([facility])[address] BASOPHILS TOTAL PER COUNTED LEUKOCYTES BY MANUAL COUNT [facility] Comment on above: Performed By: #### L [id number], [id number], [id number] ####Finishing Supervisor Plastic Sheets: UNA ARCE ([phone])[facility] [place] ([facility])[address] [place] [address] [place] BLASTS TOTAL PER COUNTED LEUKOCYTES BY MANUAL COUNT Normal [facility] Comment on above: Performed By: #### L [id number], [id number], [id number] ####Finishing Supervisor Plastic Sheets: UNA ARCE ([id number])[facility] [place] ([facility])[address] EOSINOPHILS TOTAL PER COUNTED LEUKOCYTES BY MANUAL COUNT Normal [facility] Comment on above: Performed By: #### L [id number], [id number], [id number] ####Finishing Supervisor Plastic Sheets: UNA ARCE ([phone])[facility] [place] ([facility])[address] HYPOCHROMIA (PRESENCE) IN BLOOD BY LIGHT MICROSCOPY Moderate Abnormal (none) [facility] Comment on above: Performed By: #### L [id number], [id number], [id number] ####Finishing Supervisor Plastic Sheets: UNA ARCE ([id number])[facility] [place] ([facility])[address] [place] [address] [place] LYMPHOCYTES (10*3/UL) IN BLOOD-CELLAVISION 1.4 10*3/uL Normal 1.0-4.3 [facility] Comment on above: Performed By: #### L [id number], [id number], [id number] ####Finishing Supervisor Plastic Sheets: UNA ARCE ([id number])[facility] [place] ([facility])[address] [place] [address] [place] LYMPHOCYTES TOTAL PER COUNTED LEUKOCYTES BY MANUAL COUNT 15 Normal [facility] Comment on above: Performed By: #### L [id number], [id number], [id number] ####Finishing Supervisor Plastic Sheets: UNA ARCE ([phone])[facility] [place] ([facility])[address] [place] [address] [place] LYMPHOCYTES/100 LEUKOCYTES IN BLOOD-CELLAVISION 14 % Low 15-45 [facility] Comment on above: Performed By: #### L [id number], [id number], [id number] ####Finishing Supervisor Plastic Sheets: UNA ARCE ([id number])[facility] [place] ([facility])[address] [place] [address] [place] METAMYELOCYTES TOTAL PER COUNTED LEUKOCYTES BY MANUAL COUNT Normal [facility] Comment on above: Performed By: #### L [id number], [id number], [id number] ####Finishing Supervisor Plastic Sheets: UNA BERMUDEZPEDRO ([phone])[facility] [place] ([facility])[address] [place] [address] [place] MICROCYTES (PRESENCE) IN BLOOD BY LIGHT MICROSCOPY Slight Abnormal (none) [facility] Comment on above: Performed By: #### L [id number], [id number], [id number] ####Finishing Supervisor Plastic Sheets: UNA BERMUDEZPEDRO ([phone])[facility] [place] ([facility])[address] [place] [address] [place] MONOCYTES (10*3/UL) IN BLOOD-CELLAVISION 1.3 10*3/uL High 0.0-0.[address] [facility] Comment on above: Performed By: #### L [id number], [id number], [id number] ####Finishing Supervisor Plastic Sheets: UNA BERMUDEZPEDRO ([phone])[facility] [place] ([facility])[address] [place] [address] [place] MONOCYTES TOTAL PER COUNTED LEUKOCYTES BY MANUAL COUNT [address] [facility] Comment on above: Performed By: #### L [id number], [id number], [id number] ####Finishing Supervisor Plastic Sheets: UNA BERMUDEZPEDRO ([phone])[facility] [place] ([facility])[address] [place] [address] [place] MONOCYTES/100 LEUKOCYTES IN BLOOD-LUCIANA 13 % Normal 5-[address] [facility] Comment on above: Performed By: #### L [id number], [id number], [id number] ####Finishing Supervisor Plastic Sheets: UNA STAUFFERMELANIE ([id number])[facility] [place] ([facility])[address] [place] [address] [place] MYELOCYTES COUNTED BY MANUAL COUNT Normal [facility] Comment on above: Performed By: #### L [id number], [id number], [id number] ####Finishing Supervisor Plastic Sheets: UNA YAZMIN ([id number])[facility] [place] ([facility])[address] [place] [address] [place] NEUTROPHILS TOTAL PER COUNTED LEUKOCYTES BY MANUAL COUNT [address] [facility] Comment on above: Performed By: #### L [id number], [id number], [id number] ####Finishing Supervisor Plastic Sheets: UNA YAZMIN ([id number])[facility] [place] ([facility])[address] [place] [address] [place] NUCLEATED ERYTHROCYTES/100 LEUKOCTES IN BLOOD-CELLAVISION 1 % Normal 0-[address] [facility] Comment on above: Performed By: #### L [id number], [id number], [id number] ####Finishing Supervisor Plastic Sheets: UNAANJEL ARCE ([phone])[facility] [place] ([facility])[address] [place] [address] [place] OVALOCYTES PRESENCE IN BLOOD BY LIGHT MICROSCOPY Slight Abnormal (none) [facility] Comment on above: Performed By: #### L [id number], [id number], [id number] ####Finishing Supervisor Plastic Sheets: UNA YAZMIN ([phone])[facility] [place] ([facility])[address] [place] [address] [place] POIKILOCYTOSIS (PRESENCE) IN BLOOD BY LIGHT MICROSCOPY Moderate Abnormal (none) [facility] Comment on above: Performed By: #### L [id number], [id number], [id number] ####Finishing Supervisor Plastic Sheets: UNA YAZMIN ([id number])[facility] [place] ([facility])[address] [place] [address] [place] PROMYELOCYTES TOTAL PER COUNTED LEUKOCYTES BY MANUAL COUNT Normal [facility] Comment on above: Performed By: #### L [id number], [id number], [id number] ####Finishing Supervisor Plastic Sheets: UNA YAZMIN ([id number])[facility] [place] ([facility])[address] [place] [address] [place] RBC MORPHOLOGY IN BLOOD abnormal Normal [facility] Comment on above: Performed By: #### L [id number], [id number], [id number] ####Finishing Supervisor Plastic Sheets: UNA ARCE ([id number])[facility] [place] ([facility])[address] [place] [address] [place] SEGMENTED NEUTROPHILS (10*3/UL) IN BLOOD-CELLAVISION 7.2 10*3/uL Normal 1.8-7.5 [facility] Comment on above: Performed By: #### L [id number], [id number], [id number] ####Finishing Supervisor Plastic Sheets: UNA ARCE ([id number])[facility] [place] ([facility])[address] [place] [address] [place] SEGMENTED NEUTROPHILS/100 LEUKOCYTES-CE 72 % Normal 38-82 [facility] Comment on above: Performed By: #### L [id number], [id number], [id number] ####Finishing Supervisor Plastic Sheets: UNA ARCE ([id number])[facility] [place] ([facility])[address] [place] [address] [place] STOMATOCYTES IN BLOOD BY LIGHT MICROSCOPY Moderate Abnormal (none) [facility] Comment on above: Performed By: #### L [id number], [id number], [id number] ####Finishing Supervisor Plastic Sheets: UNA ARCE ([id number])[facility] [place] ([facility])[address] TARGET CELLS IN BLOOD BY LIGHT MICROSCOPY Slight Abnormal (none) [facility] Comment on above: Performed By: #### L [id number], [id number], [id number] ####Finishing Supervisor Plastic Sheets: UNA ARCE ([id number])[facility] [place] ([facility])[address] [place] [address] [place] UNCLASSIFIED CELLS TOTAL PER COUNTED LEUKOCYTES BY MANUAL COUNT Normal [facility] Comment on above: Performed By: #### L [id number], [id number], [id number] ####Finishing Supervisor Plastic Sheets: UNA ARCE ([id number])[facility] [place] ([facility])[address] [place] [address] [place] VARIANT LYMPHOCYTES TOTAL PER COUNTED LEUKOCYTES BY MANUAL COUNT Normal [facility] Comment on above: Performed By: #### L [id number], [id number], [id number] ####Finishing Supervisor Plastic Sheets: UNA ARCE ([id number])LYNETTE BASHIRMarisol (SBHLAB)[address] NT PRO BNPon 04-05-2025 Natriuretic peptide B (Bld) [Mass/Vol] 8438 pg/mL High <450 [facility] Comment on above: Performed By: #### L [id number], [id number], [id number], LAB20, LAB69, [id number], [id number], [id number] ####Finishing Supervisor Plastic Sheets: UNA ARCE ([id number])[facility] (SB[facility])[address] RETICULOCYTESon 04-05-2025 Reticulocytes/100 RBC (Bld) 2.31 % Normal [facility] Comment on above: Result Comment: Newb orn < 5%Adults 0.4 - 2.0% Performed By: #### L [id number], [id number], [id number] ####Finishing Supervisor Plastic Sheets: UNA ARCE ([id number])[facility] ([facility])[address] THYROID STIMULATING HORMONEo n 04-05-2025 THYROID STIMULATING HORMONE 10.19 uIU/mL High 0.35-4.94 [facility] Comment on above: Performed By: #### L [id number], LAB15, [id number], LAB20, LAB69, [id number], [id number], [id number] ####Finishing Supervisor Plastic Sheets: UNA ARCE ([id number])[facility] ([facility])[address] VITAMIN B12on 04-05-2025 Cobalamin (Vitamin B12) [Mass/Vol] 817 pg/mL High 213-816 [facility] Comment on above: Performed By: #### L [id number], LAB15, [id number], LAB20, LAB69, [id number], [id number], LAB89 ####Finishing Supervisor Plastic Sheets: UNA ARCE ([id number])LYNETTE ESCOTO (SBHLAB)[address] Vital Signs Date Time Vital Sign Value Performing Clinician Annalisai gerson 07-19-2025 19:12-0500 Diastolic blood pressure 78 mm[Hg] Josefina Rose MD Work Phone: [facility] 07-19-2025 19:12-0500 Heart rate 75 /min Josefina Rose MD Work Phone: [facility] 07-19-2025 19:12-0500 Respiratory rate 17 /min Josefina Rose MD Work Phone: [facility] 07-19-2025 19:12-0500 SaO2% (BldA) [Mass fraction] 100 % Josefina Rose MD Work Phone: [facility] 07-19-2025 19:12-0500 Systolic blood pressure 117 mm[Hg] Josefina Rose MD Work Phone: [facility] 07-19-2025 17:02-0500 Body temperature 98.1 [degF] Josefina Rose MD Work Phone: [facility] 06-22-2025 02:11-0400 Diastolic blood pressure 57 mm[Hg] [facility]ash DO [facility] 06-22-2025 02:11-0400 Heart rate 54 /min Sagar Gombash DO Work Phone: [facility] 06-22-2025 02:11-0400 Respiratory rate 18 /min Sagar Gombash DO Work Phone: [facility] 06-22-2025 02:11-0400 SaO2% (BldA) [Mass fraction] 97 % Sagar Gombash DO Work Phone: [facility] 06-22-2025 02:11-0400 Systolic blood pressure 105 mm[Hg] Sagar Gombash DO Work Phone: [facility] 06-22-2025 00:31-0400 Body temperature 98.2 [degF] Sagar Gombash DO Work Phone: [facility] 06-17-2025 10:47-0400 SaO2% (BldA) [Mass fraction] 95 % Eber Hess MD Work Phone: [facility] 06-17-2025 10:27-0400 Body height 174 cm Eber Hess MD Work Phone: [facility] 06-17-2025 10:27-0400 Body mass index (BMI) [Ratio] 27.3 kg/m2 Eber Hess MD Work Phone: [facility] 06-17-2025 10:27-0400 Body weight 82.64 kg Eber Hess MD Work Phone: [facility] 06-17-2025 10:27-0400 Diastolic blood pressure 58 mm[Hg] Eber Hess MD Work Phone: [facility] 06-17-2025 10:27-0400 Heart rate 70 /min Eber Hess MD Work Phone: [facility] 06-17-2025 10:27-0400 Systolic blood pressure 110 mm[Hg] Eber Hess MD Work Phone: [facility] 05-03-2025 10:13-0400 Body height 174 cm Alejandro Jonnyynkary APR N - FACILITIES ADMINISTRATOR Work Phone: [facility] 05-03-2025 10:13-0400 Body mass index (BMI) [Ratio] 28.09 kg/m2 Alejandro Queen [address] MAGISTRATE - FACILITIES ADMINISTRATOR Work Phone: [facility] 05-03-2025 10:13-0400 Body weight 85.05 kg Alejandro Jonnyynick APR N - FACILITIES ADMINISTRATOR Work Phone: [facility] 05-03-2025 10:13-0400 Diastolic blood pressure 62 mm[Hg] Alejandro Jonnyynick [address] MAGISTRATE - FACILITIES ADMINISTRATOR Work Phone: [facility] 05-03-2025 10:13-0400 Heart rate 66 /min Alejandro Jonnyynick APR N - FACILITIES ADMINISTRATOR Work Phone: [facility] 05-03-2025 10:13-0400 Systolic blood pressure 106 mm[Hg] Alejandro Queen [address] MAGISTRATE - FACILITIES ADMINISTRATOR Work Phone: [facility] 04-17-2025 08:40-0400 Diastolic blood pressure 50 mm[Hg] Rowena Aguilar DO Work Phone: [facility] 04-17-2025 08:40-0400 Heart rate 62 /min Rowena Eliasffey DO Work Phone: [facility] 04-17-2025 08:40-0400 Respiratory rate 17 /min Rowena Aguilar DO Work Phone: [facility] 04-17-2025 08:40-0400 SaO2% (BldA) [Mass fraction] 96 % Rowena Lintony DO Work Phone: [facility] 04-17-2025 08:40-0400 Systolic blood pressure 104 mm[Hg] Rowena Lintony DO Work Phone: [facility] 04-17-2025 05:00-0400 Body mass index (BMI) [Ratio] 31.14 kg/m2 Rowena Lintony DO Work Phone: [facility] 04-17-2025 05:00-0400 Body weight 92.9 kg Rowena Aguilar DO Work Phone: [facility] 04-17-2025 01:47-0400 Body temperature 97.2 [degF] Rowena Lintony DO Work Phone: [facility] 04-16-2025 16:41-0400 Body height 172.7 cm Rowena Lintony DO Work Phone: [facility] 04-13-2025 04:37-0400 SaO2% (BldA) [Mass fraction] 95.1 % Rowena Lintony DO Work Phone: [facility] 04-08-2025 21:01-0400 SaO2% (BldA) [Mass fraction] 97 % Rowena Lintony DO Work Phone: [facility] 04-08-2025 17:02-0400 SaO2% (BldA) [Mass fraction] 96.1 % Rowena Aguilar DO Work Phone: [facility] Encounters Encounter Date Encounter Type Care Provider Facility Start: 07-19-2025 End: 07-19-2025 Emergency department patient visit PCP NONE [facility] Comment on above: Symptomatic anemia ( Primary Dx) Start: 07-19-2025 ambulatory Ravi MENSAH Facili ty:[facility] Start: 07-07-2025 ambulatory Ravi Murray ty:[facility] Start: 07-06-2025 End: 07-07-2025 Telephone encounter Eber Hess MD Work Phone: [facility] Start: 07-05-2025 ambulatory Ravi MENSAH Facili ty:[facility] Start: 06-28-2025 ambulatory Ravi MENSAH Facili ty:[facility] Start: 06-24-2025 End: 06-24-2025 Documentation procedure Yamilka Holloway [address] MAGISTRATE - FACILITIES ADMINISTRATOR Work Phone: [facility] [place] Start: 06-24-2025 End: 06-25-2025 Telephone encounter Eber Hess MD Work Phone: [facility] [employer] Comment on above: Release of Informati on (BMP, vitals, and medication notes ) Start: 06-24-2025 ambulatory Ravi MENSAH Facili ty:[facility] Start: 06-21-2025 End: 06-22-2025 Emergency department patient visit Sagar Gilliam DO Work Phone: [facility] Comment on above: Anemia due to chroni c kidney disease, unspecified CKD stage (Primary Dx) Start: 06-21-2025 [facility] Facility :[facility] Start: 06-17-2025 End: 06-17-2025 ambulatory [facility] Start: 06-17-2025 End: 06-17-2025 ambulatory [facility] Start: 06-17-2025 End: 06-17-2025 Office outpatient visit 40 minutes Eber Hess MD Work Phone: [facility] [place] Comment on above: Chronic systolic hea rt failure (HCC) (Primary Dx) Start: 05-06-2025 End: 05-12-2025 Home visit new pt unstabl/signif new prob 75 min Yamilkapradeep Holloway [address] MAGISTRATE - FACILITIES ADMINISTRATOR Work Phone: [facility] [place] Comment on above: Palliative care enco unter (Primary Dx); Pleural effusion; Acute on chronic heart failure, unspecified heart failure type (HCC); Debility Start: 05-03-2025 End: 05-03-2025 ambulatory ALEJANDRO QUEEN [facility] Start: 05-03-2025 End: 05-03-2025 Office outpatient visit 25 minutes Alejandro Queen [address] MAGISTRATE - FACILITIES ADMINISTRATOR Work Phone: [facility] - [place] Comment on above: Chronic systolic hea rt failure (HCC) (Primary Dx); Coronary artery disease involving [place] coronary artery of [place] heart without angina pectoris; Pleural effusion; Acute kidney injury superimposed on chronic kidney disease (HCC) (HCC); 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 chronic kidney disease (HCC); PAC (premature atrial contraction); Abnormal CAT scan Start: 04-19-2025 End: 04-19-2025 Orders Only Katie Engle RN [facility] [place] Comment on above: Acute congestive hea rt failure, unspecified heart failure type (HCC) (Primary Dx) Start: 04-05-2025 End: 04-17-2025 Evaluation and management of inpatient Rowena Aguilar Work Phone: [facility] Cardiac Progressive Care Unit PCU 2E Start: 11-07-2020 End: 11-07-2020 Discharged Recurring [facility]-Immunizations Procedures Date Procedure Procedure Detail Performing Clinician Start: 07-19-2025 Blood typing serologic abo Josefina Rose MD Work Phone: Start: 07-19-2025 End: 07-19-2025 TRANSFUSE RED BLOOD CELLS Josefina Rose MD Work Phone: Start: 07-19-2025 Antibody screen ALEJANDRO QUEEN Comment on above: Performed By: #### L [id number] ####Finishing Supervisor Plastic Sheets: UNA NAVARRO ([phone])[facility] BLOOD [facility] ([facility])[address] Start: 07-19-2025 Blood count complete auto&auto [...] on above: Performed By: #### L [id number] ####Finishing Supervisor Plastic Sheets: UNA NAVARRO ([phone])[facility] ([facility])[address] Start: 06-21-2025 Basic metabolic pane l [...] Phone: Start: 04-15-2025 BEDSIDE SPIROMETRY Lizeth Farmer [address] MAGISTRATE - FACILITIES ADMINISTRATOR Work Phone: Start: 04-15-2025 Blood occult peroxid ase actv qual feces 1-3 spec Albaro Hernández MD Work Phone: Start: 04-15-2025 Radiologic exam ches t single view Yesi Farmer [address] MAGISTRATE - FACILITIES ADMINISTRATOR Work Phone: Start: 04-15-2025 Comprehensive metabo lic panel Precious Lewis MD Work Phone: Start: 04-15-2025 Manual Differential panel - Blood Precious Lewis MD Work Phone: Start: 04-14-2025 OXYGEN THERAPY Precious dawn MD Work Phone: Start: 04-14-2025 Thoracentesis needle /cath pleura w/imaging Yesi Farmer [address] MAGISTRATE - FACILITIES ADMINISTRATOR Work Phone: Start: 04-14-2025 Comprehensive metabo lic panel Precious Lewis MD Work Phone: Start: 04-14-2025 Manual Differential panel - Blood Precious Lewis MD Work Phone: Start: 04-13-2025 OXYGEN THERAPY Precious dawn MD Work Phone: Start: 04-13-2025 Radiologic exam ches t single view Marian Casarez [address] MAGISTRATE - FACILITIES ADMINISTRATOR Work Phone: Start: 04-13-2025 Ecg routine ecg w/le ast 12 lds trcg only w/o i&r Marian Hawkinsmark [address] MAGISTRATE - [facility] Work Phone: Start: 04-13-2025 Blood gases any comb ination ph pco2 po2 co2 hco3 Yesi Farmer [address] MAGISTRATE [facility] Work Phone: Start: 04-13-2025 Comprehensive metabo [...] exam ches t single view Alejandro Queen [address] MAGISTRATE [facility] Work Phone: Start: 04-11-2025 OXYGEN THERAPY [...] on above: Performed By: #### L [id number] ####Finishing Supervisor Plastic Sheets: UNA NAVARRO ([phone])[facility] ([facility])[address] Start: 04-05-2025 ABO and Rh group [...] Activity Detail Author Start: 04-05-2030 Lipid panel [facility] Start: 06-21-2026 Creatinine measurement Creatinine Level [facility] Start: 06-21-2026 Potassium measurement Potassium Level [facility] Start: 06-17-2026 Creatinine measurement Creatinine Level [facility] Start: 06-17-2026 Potassium measurement Potassium Level [facility] Start: 04-17-2026 Creatinine measurement [facility] Start: 04-17-2026 Potassium measurement [facility] Start: 04-06-2026 Echocardiography Echocardiogram [facility] Start: 04-06-2026 [facility] Start: 11-03-2025 Depression Monitoring Depression Monitoring [facility] Start: 09-13-2025 End: 09-13-2025 Patient encounter procedure 09/13/2025 10:40 AM EST Office Visit [facility] - [place] [address] [place] [phone] Eber Hess MD [address] [place] [address] [facility] [place] Start: 06-17-2025 End: 06-17-2025 Patient encounter procedure 06/17/2025 10:20 AM EDT Office Visit [facility] [place] [address] [place] [phone] Eber Hess MD [address] [place] [address] [facility] - [place] Start: 05-18-2025 End: 05-18-2025 ambulatory [facility] Start: 05-18-2025 End: 05-18-2025 Patient encounter procedure 05/18/2025 9:15 AM EDT Office Visit [facility] [address] [place] [address] Nelson Garcia MD [address] [facility] [address] [place] [address] [facility] Start: 05-10-2025 COVID-19 Vaccine ( season) COVID-19 Vaccine ( season) [facility] Start: 05-10-2025 Influenza vaccination Influenza Vaccine (#1) [facility] Start: 05-10-2025 [facility] Start: 04-22-2025 End: 04-22-2025 ambulatory [facility] [place] Start: 04-22-2025 End: 04-22-2025 Patient encounter procedure 04/22/2025 10:00 AM EDT Office Visit [facility] [place] [address] [facility] [address] [place] [phone] Marian Casarez APRN - [place] [address] [address] [facility] [place] Start: 05-10-2024 COVID-19 Vaccine ( season) COVID-19 Vaccine ( season) [facility] Start: 05-10-2024 [facility] Start: 2011 RSV Immunization for Adults (1 - 1-dose 75+ series) RSV Immunization for Adults (1 - 1-dose 75+ series) [facility] Start: 2011 [facility] Start: 1986 Zoster Vaccines (1 of 2) Zoster Vaccines (1 of 2) [facility] Start: 1986 [facility] Start: 1955 DTaP/Tdap/Td Vaccines (1 - Tdap) DTaP/Tdap/Td Vaccines (1 - Tdap) [facility] Start: 1955 Pneumococcal Vaccine: 50+ Years (1 of 2 - PCV) Pneumococcal Vaccine: 50+ Years (1 of 2 - PCV) [facility] Start: 1955 [facility] Start: 1948 Depression Monitoring Depression Monitoring [facility] Start: 1948 [facility] Start: 1936 Medicare Annual Wellness (AWV) Medicare Annual Wellness (AWV) [facility] Start: 1936 [facility] Bedside spirometry [facility] Work Phone: End: 04-05-2025 Hemoglobin [Mass/volume] in Blood [facility] Work Phone: End: 04-05-2025 Hemoglobin.gastrointestina l.lower [Presence] in Stool by Immunoassay --1st specimen [facility] Work Phone: Immunizations Immunization Date Immunization Notes Care Provider Fa cility 12-05-2020 Covid (Moderna) [facility] Work Phone: 11-07-2020 Covid (Modern) [facility] Work Phone: 06-30-2020 influenza virus vaccine, unspecified formulation Katie Engle RN [facility] Payers Date Payer Category Payer Self-pay [id number] 2017 [employer] Manuel Vargas Managed Care - [facility] [id number] 2017 Medicare supplementa l policy (as second payer) [id number] 2017 Unknown [id number] 2001 Medicare [id number] 2001 Medicare [id number] Unknown [id number] Unknown [id number] Unknown [id number] Unknown [id number] Unknown [id number] Unknown [id number] Social History Date Type Detail Facility Tobacco smoking stat us NHIS Unknown if ever smoked [facility] Work Phone: Start: 1935 Sex Assigned At Male W [facility] Work Phone: Start: 04-08-2025 End: 05-03-2025 Tobacco smoking status NHIS Never smoked tobacco [facility] Start: 04-08-2025 End: 05-03-2025 History of Social function [facility] Start: 04-08-2025 End: 05-03-2025 [facility] Bulu Boxities [facility] Has the [employer], [employer], or water [employer] threatened to shut off services in your home in past 12Mo No [facility] How often to you hav e a drink containing alcohol? Never [facility] How many standard drinks containing alcohol do you have on a typical day? [facility] (I/We) worried landon er (my/our) food would run out before (I/we) got money to buy more. Never true [facility] Start: 1935 Sex assigned at [facility] Start: 04-05-2025 Sex Male (finding) [facility] Start: 05-03-2025 End: 06-15-2025 Tobacco use and exposure Smokeless tobacco non-user [facility] Start: 06-15-2025 [facility] History of tobacco use Current smoker [facility] History of tobacco use Cigarette Smoker [facility] Start: 06-17-2025 Alcoholic beverage intake Ex-drinker (finding) [facility] Goals Date Patient Goal Desired Activity /State Functional Status Date Assessment Result Facility 07-19-2025 Total score [AUDIT-C] 0 07/19/20 10:59 AM Luci Mendez RN [facility] 05-03-2025 Patient Health Quest ionnaire 2 item (PHQ-2) [Reported] [facility] Clinical Notes 04-05-2025 to 07-19-2025 May Jarquin [...] noted. VS stable. Resp even, non labored. [facility] 07-19-2025 Emergency department Note [facility] arrived to transport pt to home facility . Pt transferred to stretcher without difficulty. Pt A&O, calm, and cooperative, no signs of distress noted. VS stable. Resp even, non labored. Report given to [facility]. Marleni Post H&H not needed per Dr. Rose. Ok to dc 30 mins after unit is complete. Meal order placed This RN sat bedside for the first 15 mins of blood transfusion. Pt denied c/o any transfusion reaction symptoms. Pt's vitals rechecked before leaving the room. [facility] ED EMERGENCY DEPARTMENT ENCOUNTER Pt Name: [...] 7.1 on 06/15/2025 patient is in a mcc. Patient is wheelchair-bound. HPI Historian is the [...] AND HEMATOCRIT, BLOOD PREPARE RBC PRODUCT CODE [id number] Unit Number [id number] Unit ABO A Unit RH NEG Crossmatch interpretation COMP Dispense Status Transfused Blood Expiration Date [id number] Product Blood Type 0600 Unit Volume 300 [...] determinants of health affecting care: Lives in mcc Shared decision making: Patient agrees to treatment plan ED Medications managed: Medications sodium chloride 0.9 % infusion (has no administration in time range) Prescription drugs prescribed: PROCEDURES: Unless otherwise noted below, none Procedures IMPRESSION 1. Symptomatic anemia DISPOSITION/PLAN DISPOSITION Discharge 07/19/2025 01:51:41 PM PATIENT REFERRED TO: Ravi Kirk DO [address] [place] [address] [address] [place] [address] In 1 week DISCHARGE MEDICATIONS: New Prescriptions No medications on file @[facility]([id number]:LAST:1)@ (Comment: Please notethis report has been produced [...] MD 07/19/25 1352 documented in this encounter [facility] 07-19-2025 Emergency department Note [facility] 07-19-2025 Emergency department Note Post H&H not needed per Dr. Rose. Ok to dc 30 mins after unit is complete. [facility] 07-19-2025 Emergency department Note Meal order placed [facility] 07-19-2025 Emergency department Note This RN sat bedside for the first 15 mins of blood transfusion. Pt denied c/o any transfusion reaction symptoms. Pt's vitals rechecked before leaving the room. [facility] 07-19-2025 Hospital Discharg e instructions Josefina Rose MD - 07/19/2025 1:52 PM EST Continue all current medications. Would recommend that you get a repeat CBC within 5 to 7 days. This can be done by your primary care physician. The following attachments cannot be sent through Care Everywhere.Normocytic Normochromic Anemia Discharge Instructions (Kosovan)documented in this encounter [facility] 07-19-2025 Physician Emergency department Note [facility] ED EMERGENCY DEPARTMENT ENCOUNTER Pt Name: [...] 7.1 on 06/15/2025 patient is in a mcc. Patient is wheelchair-bound. HPI Historian is the [...] AND HEMATOCRIT, BLOOD PREPARE RBC PRODUCT CODE [id number] Unit Number [id number] Unit ABO A Unit RH NEG Crossmatch interpretation COMP Dispense Status Transfused Blood Expiration Date [id number] Product Blood Type 0600 Unit Volume 300 [...] determinants of health affecting care: Lives in mcc Shared decision making: Patient agrees to treatment plan ED Medications managed: Medications sodium chloride 0.9 % infusion (has no administration in time range) Prescription drugs prescribed: PROCEDURES: Unless otherwise noted below, none Procedures IMPRESSION 1. Symptomatic anemia DISPOSITION/PLAN DISPOSITION Discharge 07/19/2025 01:51:41 PM PATIENT REFERRED TO: Ravi Kirk DO [address] [place] [address] In 1 week DISCHARGE MEDICATIONS: New Prescriptions No medications on file @[facility]([id number]:LAST:1)@ (Comment: Please notethis report has been produced [...] Year: No Josefina Rose MD 07/19/25 1352 [facility] 07-07-2025 Telephone encounter Note Darby called back to verify the diuretic instructions; she had the Lasix written down, so I verified that it was actually torsemide. She verbalized understanding and was thankful for the call. [facility] 07-07-2025 Miscellaneous Notes Darby called back [...] called and spoke to nurse Khushboo from [facility]-she took verbal order for torsemide and notes they are continuing to follow his anemia with hemograms; is occult stool was negative. She was thankful for the call back. Images from the original note were not included. Cr 1.9, K+ 3.7, hemoglobin 7.1 on 07/05/25. BP's mostly 100-110's/50/60's; one SBP outlier of 94, one outlier of 121. HR's 60-70's. Note from nursing: [facility] faxed 07/05/25 BMP, and CBC, and vitals. Records to be scanned to chart. Sharita from [facility] called o report weight gain. 07/03: #189, 07/04: #191, 07/06: #191.4, and today #191.6. He had labs recently and HG is 7.1. She is faxing his recent vitals and labs. We scheduled follow up with 09/13/25. Otherwise he is feeling fine. documented in this encounter [facility] 07-07-2025 Telephone encounter Note Per Dr Hess "Ok to take etc 20 mg torsemide if weight gain, leg swelling or sob. Anemia - recommend followup with PCP and GI" I called and spoke to nurse Khushboo from [facility]-she took verbal order for torsemide and notes they are continuing to follow his anemia with hemograms; is occult stool was negative. She was thankful for the call back. [facility] 07-06-2025 Telephone encounter Note Images from the original note were not included. Cr 1.9, K+ 3.7, hemoglobin 7.1 on 07/05/25. BP's mostly 100-110's/50/60's; one SBP outlier of 94, one outlier of 121. HR's 60-70's. Note from nursing: [facility] 07-06-2025 Telephone encounter Note [facility] faxed 07/05/25 BMP, and CBC, and vitals. Records to be scanned to chart. [facility] 07-06-2025 Telephone encounter Note Sharita from [facility] called o report weight gain. 07/03: #189, 07/04: #191, 07/06: #191.4, and today #191.6. He had labs recently and HG is 7.1. She is faxing his recent vitals and labs. We scheduled follow up with 09/13/25. Otherwise he is feeling fine. [facility] 06-24-2025 History of Presen t illness Narrative Attempted to meet with pt. He no longer resides here. Facility uncertain where he has moved to. Message left on primary contacts number Bereket to return call to the palliative group at [phone] documented in this encounter [facility] 06-24-2025 Telephone encounter Note Per Dr Hess: "Would stop aldactone all together due to Cr 1.8 and low normal BP. Also stop hydralazine and see how bp is " I called and spoke to the nurse, Kylah at [facility] relaying note from Dr Hess. [...] likely give him an additional torsemide today. [facility] 06-24-[address] Hess: "Would stop aldactone all together due to Cr 1.8 and low normal BP. Also stop hydralazine and see how bp is " I called and spoke to the nurseKylah at [facility] relaying note from Dr Hess. [...] was 2.05 on 06/17/25. FYI: Went to [facility] ER on 06/21/25 for blood transfusion as HGB at facility was 6.9 when they checked it 06/21/25. Labs from [facility] Today: 06/24/25 BMP, blood pressure, pulse summary, and medication notes faxed from [facility]. Records scanned to Media. documented in this encounter [facility] 06-24-2025 Telephone encounter Note Images from [...] was 2.05 on 06/17/25. FYI: Went to [facility] ER on 06/21/25 for blood transfusion as HGB at facility was 6.9 when they checked it 06/21/25. Labs from [facility] Today: [facility] 06-24-2025 Telephone encounter Note 06/24/25 BMP, blood pressure, pulse summary, and medication notes faxed from [facility]. Records scanned to Media. [facility] 06-21-2025 Emergency department Note This RN at bedside for first 15 minutes of blood transfusion. Pt tolerating transfusion. VS updated in system. [facility] 06-21-2025 Emergency department Note This RN at bedside for first 15 minutes of blood transfusion. Pt tolerating transfusion. VS updated in system. Emergency Department Encounter [facility] ED Patient: Mary Charles [...] the emergency department lab work today from residential facility showed hemoglobin of 6.8. Patient is [...] unit of blood and discharged back to residential facility. Diagnostics interpreted by me: I personally [...] DO 06/21/252211 Patient arrives via EMS from [facility] following bloodwork that showed low hemoglobin. No overt signs of bleeding on arrival. Patient A&O4. Patient does endorse previous blood transfusions. documented in this encounter [facility] 06-21-2025 Emergency department Triage note Patient arrives via EMS from [facility] following bloodwork that showed low hemoglobin. No overt signs of bleeding on arrival. Patient A&O4. Patient does endorse previous blood transfusions. [facility] 06-21-2025 Physician Emergency department Note Emergency Department Encounter [facility] ED Patient: Mary Charles [...] the emergency department lab work today from [facility] showed hemoglobin of 6.8. Patient is [...] unit of blood and discharged back to residential facility. Diagnostics interpreted by me: I personally [...] [employer] Sagar Gilliam DO 06/21/252211 [facility] Work Phone: 06-17-2025 History of Presen t illness Narrative [facility] Cardiology [facility] - [address] [facility] [address] Dept: [phone] Dept Visit type: Established : 1935 Chief Complaint: Chief Complaint Patient presents with Follow-up 6 Week History of Present Illness: Mary Charles is a 89 y.o. male with HFrEF, Coronary artery disease who is here for followup. Prior events : He presented to [facility] 03/2025 with progressive shortness [...] tablet, Rfl: 1 documented in this encounter [facility] 05-06-2025 History of Presen t illness Narrative Images from the original note were not included. [facility] Palliative Care Site of Care: [facility] Chief Complaint: Mary Charles is a [...] hospice conversation today Debility Pt now at [facility] Working with PT/OT Palliative encounter Will [...] Falls: No Current Interventions: PT, OT, and long term Current Assistive Devices: walker and wheelchair ROS: See palliative care ROS/ESAS below; All other systems were reviewed and are negative. 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 [facility] - [address] [facility] [address] Dept: [phone] Dept Visit type: Established : 1935 Reason [...] of EF 2. Coronary artery disease involving united [place] coronary artery of united [place] heart without angina pectoris Assessment & Plan: [...] weeks (around 06/14/2025). Wants to establish in [place]. Subjective No prior history as he has not been to a doctor for many years He presented to [facility] 03/2025 with progressive shortness [...] history on file. documented in this encounter [facility] 05-03-2025 Evaluation + Plan note Associated Problem(s): Abnormal CAT scan CT abdomen with mural thickening involving the cecum and terminal ileum concern for neoplasm versus inflammation. Seen by GI with plan for EGD and colonoscopy once stable. -GI follow-up [facility] 05-03-2025 Miscellaneous Notes Associated Problem(s): Abnormal [...] today Associated Problem(s): Coronary artery disease involving united [place] coronary artery of united [place] heart without angina pectoris Suspected CAD causing [...] re-evaluation of EF documented in this encounter [facility] 05-03-2025 Evaluation + Plan note Associated Problem(s): PAC (premature atrial contraction) Noted to have irregular heart rhythm during hospitalization and multiple EKGs show sinus rhythm with frequent PACs. -Continue Toprol 25 mg p.o. daily [facility] 05-03-2025 Evaluation + Plan note Associated [...] discharge. Hgb 8.2 per labs 04/26/[address] [facility]. -No aspirin due to anemia - continue to monitor [facility] 05-03-2025 Evaluation + Plan note Associated Problem(s): Acute kidney injury superimposed on chronic kidney disease (HCC) (HCC) Creatinine 1.46 on admission. Peak creatinine 1.78. Most recent creatinine 1.8 per labs 04/26/2025 - Continue to monitor - may have to accept a higher creatinine to keep him out of HF [facility] 05-03-2025 Evaluation + Plan note Associated Problem(s): Pleural effusion Bedside thoracentesis 04/09/2025 with 1 L removed from the left and 600 mL removed from the right. Repeat left thoracentesis 04/14/2025 with 600 mL removed. - continue to monitor, appears euvolemic today [facility] 05-03-2025 Evaluation + Plan note Associated Problem(s): Coronary artery disease involving united [place] coronary artery of united [place] heart without angina pectoris Suspected CAD causing HFrEF. NO angina. - no ASA 2/2 anemia - continue Toprol 25 mg po daily - continue atorvastatin 20 mg po daily - not a candidate or invasive workup due to anemia, advanced age and frailty [facility] 05-03-2025 Evaluation + Plan note Associated [...] in 3 months for re-evaluation of EF [facility] 04-19-2025 History of Presen t illness Narrative Pt was followed by the Palliative Care Team during hospitalization at [facility]. Provider is recommending continued Palliative follow up in the community. Referral made referral to [facility] Palliative Care SNF team. documented in this encounter [facility] 04-17-2025 Nurse Note Report given to Flor MYERS at [facility]. All belongings sent with patient, including eyewear. HL removed, site WNL. RN contacted REFRIGERATOR GLAZIER Marleny concerning attempt to wean patient to [...] bed very aggressively. 2 RN , 2 administrative nursing supervisor were at bedside trying to calm him [...] within normal limits. documented in this encounter [facility] 04-17-2025 Miscellaneous Notes Patient Choice Patient Name: MARY CHARLES Date of : 1935 Share Number: 0 Method of Sharing: electronic Date of Sharin2025-04-08 13:13:49.000 Responding Recipient: [email or web address] Ranked Providers Sent Referral Rank: 2 Name: Monika Montoya [employer]centos Phone: [phone] Address: [address] [place] [address] Rank: 3 Name: [facility] [employer]Locker. Phone: [phone] Address: [address] [place] [address] Rank: 1 Name: Jan FUENTES Member Phone: [phone] Address: [address] [place] [address] All Providers Sent Referral Name: Monika LOZOYA Phone: [phone] Address: [address] [place] [address] Name: Stefany Tidwell, Aishwarya. Phone: [phone] Address: [address] [place] [address] Name: Jan FUENTES Member Phone: [phone] Address: [address] [place] [address] Care Management Progress Note Short Medical why still here: Pending placement. Planned Discharge Disposition: Residential Facility ([facility] SNF) Barriers/Today we still Wait: Clinical [...] Requested cot transport for 1230 via [facility]. [facility] accepted for 1230. Notified bedside RN of transport time and number to call report. Notified facility of transport time and [facility] Spoke with daughter Anahy Charles at [phone] regarding transportation plan. Confirmed pickup time is 1230. Discussed patient may have a co-pay for ambulance depending on their individual insurance coverage. Advised daughter Anahy to call number on back of insurance card with questions or concerns. Tasked weekend TTC to follow for possible dc over the weekend. agronomy manager to follow and assist as needed. [...] at that facility if he chooses. -Tasked LIQUOR BLENDER to complete and upload into [employer] 7000. Barriers/Today we still Wait: Clinical stability, [...] will still need placement at a facility. -agronomy manager to follow and assist as needed. [...] family later on Saturday. Planned Discharge Disposition: Residential Facility vs hospice Barriers/Today we still Wait: Receiving IV medication, clinical stability, Post-discharge arrangement completion (SNF vs hospice) agronomy manager to follow and assist as needed. Length of Stay (Days): 9 GMLOS: 3.9 Family Communication Number Called: [phone] Name of Designated Family Repair Electric Motor Assembler: Anahy Charles Relationship to patient: Daughter Outcome: I spoke with the individual listed above Family Repair Electric Motor Assembler Updated on the Following: --provided medical update. [...] on Saturday. Signed, Bela Agustin APRN, CNP, [facility] Palliative Care/Hospice P[facility] [phone] Care Management Progress Note Short Medical why still here: did send bipap settings to [facility] and requested for them to obtain bipap unit for patient to utilize at their facility. Currently requiring oxygen at 1 liter. Anticipate probable dc tomorrow. Will need 7000 and transport arranged. Planned Discharge Disposition: Residential Facility Barriers/Today we still Wait: Administering IV medications, Clinical stability, Facility pre-cert Length of Stay (Days): 8 GMLOS: 3.9 . Referral placed to SNF- [facility] via [facility] per TCC request. Await review and response regarding ability to accept. TCC notified. Care Management Progress Note Short Medical why still here: reviewed chart. Dgt has selected SNF choices virtually - 1. [facility] 2. [facility] 3. [facility]. Tasked LIQUOR BLENDER to create these referrals - will follow. Planned Discharge Disposition: Residential Facility Barriers/Today we still Wait: Administering IV medications, Clinical stability, Facility pre-cert Length of Stay (Days): 7 GMLOS: 3.9 Called and spoke with deya Higgnibotham of patient, and provided DC planning updates. [facility] willing to accept. Updates sent to facility. ICU Transfer Checklist Transfer Med Reconciliation (resume home meds if able, convert to PO if able) Complete Antibiotics (name, indication, duration, convert to PO if able) None Steroid (indication, duration, convert to PO if able) None Anticipated [place] Medications (ICU initiated) or Dose Changes and Indication No Permanently Discontinued Home Medications and Reason for medication contraindication No García Catheter (please remove if able. Note: place DC order) No Central Line (please remove if able. Note: place DC order) No Transfer Discussed with: Dr. Regan with [facility] If additional questions for ICU team within 24 hours of ICU transfer, page [phone] for clarifications. Will assume care as patient is being transferred out of ICU. D/w Dr Lewis via secure chat Images from the original note were not included. [facility] Palliative Care Transitions of Care [...] care of himself. -Consider medication for mood? -Paper Tester support requested. -Monitor. Hx CKD III -CrCl [...] NAME: TBD, referrals have been sent to [facility], [facility] and [facility]. Follow up with palliative team on office [...] care and cardiology following. Planned Discharge Disposition: Residential Facility Barriers/Today we still Wait: Clinical stability, Pick Up Worker recommendations (comment), Diagnostic workup, Administering IV medications, [...] need if SNF is recommended by PT. agronomy manager to follow and assist as needed. Length of Stay (Days): 1 GMLOS: No GMLOS Documented documented in this encounter [facility] 04-17-2025 Note [facility] 04-17-2025 Hospital course Narrative Discharge Summary [...] Your Medications These medications were sent to [facility] [address] [facility] [address] Hours: Saturday to Saturday 10 am to 6 pm atorvastatin 20 MG tablet hydrALAZINE 10 MG tablet metoprolol succinate XL 25 MG 24 hr tablet senna-docusate sodium 8.6-50 MG tablet spironolactone 25 MG tablet Torsemide 40 MG tablet DIET: Adult diet Regular; No Added Salt (3-4 gm) ACTIVITY: No restriction. COMPLEXITY OF FOLLOW UP: [x] Moderate Complexity: follow up within 7-14 calendar days (56124) [] Severe Complexity: follow up within 7 calendar days (36676) FOLLOW UP TESTING, PENDING RESULTS OR REFERRALS AT TRANSITIONAL CARE VISIT: [x] Yes [] No PENDING STUDIES: DISPOSITION: Skilled Facility FACILITY/HOME CARE AGENCY NAME: Follow up with Nelson Garcia MD [address] [facility] [address] Go on 05/18/2025 Pulmonary hospital follow-up at 9:15 AM Marian Casarez APRN - FACILITIES ADMINISTRATOR [address] [place] [address] Follow up on 04/22/2025 Cardiology follow-up at 10:00 AM. [facility] Gastroenterology - [address] [address] Follow up in 1 month(s) [...] 04/17/2025, 10:12 AM documented in this encounter [facility] 04-17-2025 History of Presen t illness Narrative [facility] [place] [facility] Cardiology /Electrophysiology Progress Note HPI / Interval [...] follow-up 04/22/2025 at 10 AM at the [facility] office with myself, Marian Casarez [...] 40 mg, Oral, Daily [2] [facility] Respiratory Care Department Progress Note Comment [...] care of himself. -Consider medication for mood? -Paper Tester support requested. -Monitor. Hx CKD III -CrCl [...] detailed in the note above. Bela Agustin, INDUST[address]AL [employer] MAGISTRATE - FACILITIES ADMINISTRATOR Palliative Care Assessments: Goals of care: Continue [...] other systems were reviewed and are negative. [place] Symptom Assessment Score [place] Score Pain Score (if non-verbal, add .FLACC [...] On: Kcal/kg Weight Used for Energy Requirements: [place] Weight for Energy Calculation (kg): 70 kg Total Energy Requirements (kcals/day): 1631-3118 (25-30) Weight Used for Protein Requirements: [place] Weight in Kg Used for Protein Requirements: [...] Body Weight: (none on file to review) [place] Body Weight (lbs) (Calculated): 154 lbs [place] Body Weight (Kg) (Calculated): 70 kg % [place] Body Weight (Calculated): 129.9 % BMI (kg/m2) [...] Continue current diet Kristin Duffy RD Contact: *[phone] or via Secure Chat Images from the original note were not included. OCCUPATIONAL THERAPY [facility] Treatment Note Name/MRN: Mary Charles ([id number]) Date of : 1935 Age: 89 y.o. Room/Bed: [facility]268/[facility] B Visit #: 4 out of 7 Discharge Recommendation: Residential Facility Equipment Needed: No Assessment Pt tolerated [...] Daily Activity Raw Score: 14 ADL Inpatient [facility] G-Code Modifier: CK Goals Patient Stated Goal: [...] ANAHY CHARLES Mobile Relation: Daughter Preferred language: Kosovan Automatic Paint Sprayer Operator needed? No Albaro Hernández MD Division of Hospitalist Medicine Acute care [facility] [1] History reviewed. No pertinent past [...] from the original note were not included. [facility], Pulmonary Medicine [address] [place] [address] Patient - Mary Charles, Age - 89 y.o. - 1935 Room Number - B2-268/B2-268 B Consulting - Albaro Hernández MD Primary Care Physician - No primary care provider [facility] file[id number] Date of Admission - 04/05/2025 3:55 PM [...] heart failure, unspecified heart failure type (HCC) [facility] Cardiology /Electrophysiology Progress Note HPI / [...] 40 mg, Oral, Daily [2] [facility] Respiratory Care Department Progress Note Comment [...] Respiratory in the care of this patient, [facility] [place] [facility] Cardiology /Electrophysiology Progress Note HPI / Interval [...] from the original note were not included. [facility], Pulmonary Medicine [address] [place] [address] Patient - Mary Charles, Age - 89 y.o. - 1935 Room Number - B2-268/B2-268 B Consulting - Albaro Hernández MD Primary Care Physician - No primary care provider on file. [id number] Date of Admission - 04/05/2025 3:55 PM [...] ANAHY CHARLES Mobile Relation: Daughter Preferred language: Kosovan Automatic Paint Sprayer Operator needed? No Albaro Hernández MD Division [...] polyethylene glycol (PEG) 3350 [4] [facility] Respiratory Care Department Progress Note Comment [...] Respiratory in the care of this patient, [facility] [place] [facility] Cardiology /Electrophysiology Progress Note HPI / Interval [...] original note were not included. OCCUPATIONAL THERAPY [facility] Name/MRN: Mary Charles ([id number]) Date: 04/14/2025 Attempted to see pt for OT tx. Pt reported being very fatigued after getting cleaned up and working with PT this AM. Unable to encourage participation in OT tx at this time. Marleni Victor OT Images from the original note were not included. PHYSICAL THERAPY [facility] Treatment Note Name/MRN: Mary Charles ([id number]) Date of : 1935 Age: 89 y.o. Room[facility]Bed: [facility] B Visit #: 4 out of 5 Discharge Recommendation: Residential Facility Equipment Needed: No Assessment Patient supine [...] ANAHY CHARLES Mobile Relation: Daughter Preferred language: Kosovan Automatic Paint Sprayer Operator needed? No Albaro Hernández MD Division of Hospitalist Medicine [facility] [1] History reviewed. No pertinent [...] from the original note were not included. [facility], Pulmonary Medicine [address] [place] [address] Patient - Mary Charles, Age - 89 y.o. - 1935 Room Number - B2-268/B2-268 B Consulting - Albaro Hernández MD Primary Care Physician - No primary care provider on file[id number] Date of Admission - 04/05/2025 3:55 PM [...] I spoke with Breana from [facility]. Likely will need to have bedside spirometry [...] On: Kcal/kg Weight Used for Energy Requirements: [place] Weight for Energy Calculation (kg): 70 kg Total Energy Requirements (kcals/day): 4825-7288 (25-30) Weight Used for Protein Requirements: [place] Weight in Kg Used for Protein Requirements: [...] Body Weight: (none on file to review) [place] Body Weight (lbs) (Calculated): 154 lbs [place] Body Weight (Kg) (Calculated): 70 kg % [place] Body Weight (Calculated): 136.1 % BMI (kg/m2) [...] Oral Nutrition Supplement Kristin Duffy RD Contact: *[phone] or via Secure Chat Images from the original note were not included. OCCUPATIONAL THERAPY [facility] Treatment Note Name/MRN: Mary Charles ([id number]) Date of : 1935 Age: 89 y.o. Room/Bed: B2-268/B2268 B Visit #: 3 out of 7 Discharge Recommendation: Residential Facility Equipment Needed: No Prior Level of [...] Gongora OT at 04/14/2025 9:03 AM EDT [facility] Cardiology /Electrophysiology Progress Note HPI / [...] ANAHY CHARLES Mobile Relation: Daughter Preferred language: Kosovan Automatic Paint Sprayer Operator needed? No Albaro Hernández MD Division [...] from the original note were not included. [facility], Pulmonary Medicine [address] [place] [address] Patient - Mary Charles, Age - 89 y.o. - 1935 Room Number - B2-268/B2-268 B Consulting - Albaro Hernández MD Primary Care Physician - No primary care provider on file. Date of Admission - 04/05/2025 3:55 PM Hospital Day - 8 Chief Complaint: Leg swelling and shortness of breath Pulmonary consult: ICU transfer, respiratory failure, CHF, needs NIV at discharge Subjective Hospital summary: Mayr Chrales is a 89 y.o. male who was [...] note were not included. OCCUPATIONAL THERAPY [facility] Treatment Note Name/MRN: Mary Charles ([id number]) Date of : 1935 Age: 89 y.o. Room[facility]Bed: [facility] B Visit #: 2 out of 7 visits Discharge Recommendation: Residential Facility Equipment Needed: No Prior Level of Function Prior Level of ADL Function: Required Assist (for showering and pt wipes himself down with wash cloth IND) Prior Level of Mobility: Independent; Device: Rollator Prior Level of Transfers: Independent Assessment Pt agreeable to therapy at first attempt (3380-0040) but states that he first needs to [...] care of himself. -Consider medication for mood? -Paper Tester support requested. -Monitor. Hx CKD III -CrCl [...] hospital setting and will send referral to bus aidevenue coordinator for palliative SNF referral. -Questions answered, [...] other systems were reviewed and are negative. [place] Symptom Assessment Score [place] Score Pain Score (if non-verbal, add .FLACC [...] LOURDES Ordaz CNP Hospitalist Progress Note 04/12/2025 [phone]: Please secure chat me for patient care issues. [phone]: Please secure chat [facility] night Hospitalist for any issues. Subjective: Admit [...] diet Regular; No Added Salt (3-4 gm) @[id number]@ 24HR INTAKE/OUTPUT: Intake/Output Summary (Last 24 hours) [...] care input PT and OT assessments recommended residential facility -am labs, replace lytes prn -increase activity -DVT prophylaxis: [] Lovenox [] Heparin [x] SCDs [x] Encourage ambulation [] Already on Anticoagulation - GI prophylaxis : Anticipated Discharge - Date -April 14 or - Location -residential facility - Pending the following -clinical improvement, specialist clearance Total time spent (which include face to face and non face to face encounters) : 53 minutes Toxic drug monitoring/narrow therapeutic index drug monitoring : # Drug name : # Route administered : # Method of monitoring : Extended Emergency Contact Information Primary Emergency Contact: ANAHY CAHRLES Mobile Relation: Daughter Preferred language: Kosovan Automatic Paint Sprayer Operator needed? No Westley Martinez MD Division of Hospitalist Medicine [employer] [facility] PAGER: Ese chat [1] History reviewed. No [...] original note were not included. PHYSICAL THERAPY [facility] Treatment Note Name/MRN: Mary Charles ([id number]) Date of : 1935 Age: 89 y.o. Room/Bed: [facility] B Visit #: 3 out of 5 visits Discharge Recommendation: Residential Facility Equipment Needed: No Assessment Pt making [...] Cabral PT at 04/12/2025 10:47 AM EDT [facility] [place] [facility] Cardiology /Electrophysiology Progress Note HPI / Interval History: Mary Charles has no prior cardiac history (has not seen a physician for many years) who presented to [facility] with worsening SOB, hypoxia [...] Date Of Service 04/12/2025 [1] [facility] Respiratory Care Department Progress Note Comment [...] note were not included. OCCUPATIONAL THERAPY [facility] Treatment Note Name/MRN: Mary Charles ([id number]) Date of : 1935 Age: 89 y.o. Room/Bed: [facility] B Visit #: 1 out of 7 Discharge Recommendation: Residential Facility Equipment Needed: No Prior Level of [...] 04/11/2025 1:38 PM EDT Hospitalist Progress Note 04/11/20256993818-1242: Please secure chat me for patient care issues. [phone]: Please secure chat [facility] night Hospitalist for any issues. Subjective: Admit [...] diet Regular; No Added Salt (3-4 gm) @[id number]@ 24HR INTAKE/OUTPUT: Intake/Output Summary (Last 24 hours) [...] - Location -Home with home health versus residential facility - Pending the following -PT and [...] ANAHY CHARLES Mobile Relation: Daughter Preferred language: Kosovan Automatic Paint Sprayer Operator needed? No Westley Martinez MD Division of Hospitalist Medicine [employer] [facility] PAGER: ReDigi chat [1] History reviewed. No pertinent past [...] ON 04/12/2025] torsemide, 40 mg, Oral, Daily [facility] [place] [facility] Cardiology /Electrophysiology Progress Note HPI / Interval History: Mary Charles has no prior cardiac history (has not seen a physician for many years) who presented to [facility] with worsening SOB, hypoxia [...] 100 % Final Alejandro Queen APRN - FACILITIES ADMINISTRATOR Date Of Service 04/11/2025 [1] [facility] Respiratory Care Department Progress Note Comment [...] original note were not included. PHYSICAL THERAPY [facility] Treatment Note Name/MRN: Mary Charles ([id number]) Date of : 1935 Age: 89 y.o. Room/Bed: 222-04/222-04 A Visit #: 2 out of 5 Discharge Recommendation: Residential Facility Equipment Needed: No Assessment Pt making [...] note were not included. OCCUPATIONAL THERAPY [facility] Initial Evaluation Name/MRN: Mary Charles ([id number]) Evaluation Date: 04/10/2025 Date of : 1935 Admission Date: 04/05/2025 3:55 PM Age: 89 y.o. Room/Bed: 222-04/222-04 A Discharge Recommendation: Residential Facility Equipment Needed: No Assessment IMPRESSION: Pt [...] Needs Assist Receives Help From: Family Active Metal Sander: No Prior Level of Function Prior Level [...] of Care supervision is transferred to a [facility] Therapy Services Occupational Therapist. Goals and/or [...] [2] History reviewed. No pertinent surgical history. [facility] Cardiology /Electrophysiology Progress Note HPI / Interval History: Mary Charles has no prior cardiac history (has not seen a physician for many years) who presented to [facility] with worsening SOB, hypoxia [...] remote tobacco abuse who was admitted to [facility] 04/05/25 with shortness of [...] Normal [] Scar/Lesion/Mass Inspection of teeth/lips/gums: Dentition: [x][employer] Teeth []Dentures Lips/Gums [x]Intact []Lesion Present Oropharynx exam: Mucosa [x][place] []Moist []Dry Neck: External Appearance: Overall Appearance:[x]Normal [...] ABGs: Recent Labs 04/08/25165304/08/252052 PHART 7.296* 7.332* [id number] 80.1* 75.1* PO2ART 92.0 104.0 [id number] 38.2* 38.9* [id number] 96.1* 97.0 Lactic Acid: No lab exists [...] can use the urinal, no indication for SSRS REPORT DEVELOPER at this time (would be a poor [...] Code Status: Full Code Disposition: Transfer to [facility] with telemetry Critical care time spent reviewing labs/films, examining patient, collaborating with other physicians but excluding procedures for life threatening organ failure is 35 minutes. Precious Lewis MD Pulmonary & Critical Care Medicine [facility] Pager #[phone] [1] atorvastatin, 20 mg, Oral, Nightly carvedilol, 3.125 mg, Oral, BID WC furosemide, 40 mg, IntraVENous, BID hydrALAZINE, 25 mg, Oral, TID mupirocin, 1 Application, Nasal, BID pantoprazole, 40 mg, Oral, qAM AC polyethylene glycol (PEG) 3350, 17 g, Oral, Daily senna-docusate sodium, 2 tablet, Oral, BID [Held by provider] torsemide, 20 mg, Oral, Daily [2] [facility] Cardiology /Electrophysiology Progress Note HPI / Interval History: Mary Charles has no prior cardiac history (has not seen a physician for many years) who presented to [facility] with worsening SOB, hypoxia [...] Does appear tired. Family at bedside (brother, [id number], daughter). No significant complaints today. Assessment/Plan HF [...] original note were not included. PHYSICAL THERAPY [facility] Treatment Note Name/MRN: Mary Charles ([id number]) Date of : 1935 Age: 89 y.o. Room/Bed: 222-04/222-04 A Visit #: 1 out of 5 Discharge Recommendation: Residential Facility Equipment Needed: No Assessment Pt demos [...] x1) Lucrecia Cabral PT Spiritual Care Note [facility] Palliative Care Patient Name:Mary Charles [...] He spoke about moving from [place] to [place] as a young man. We did some life review. No follow up. Is there spiritual distress? YES Comment: Grief Interventions: spiritual support provided, emotional support provided, empathetic listening, and validated feelings. Care Plan: No care plan. Follow Up: No follow up. Debriefed: with early childhood assistant team. Carmelita Chairez 04/09/25 Images from the original note were not included. Palliative Care Progress Note Chief Complaint: Mary Charles is a 89 y.o. male with chief complaint of shortness of breath. Palliative Care provider will follow-up on . Assessment/Plan Goals of care Mary Chrales retains capacity for medical decision-making -legal surrogate [...] care of himself. -Consider medication for mood? -Paper Tester support requested. -Monitor. Hx CKD III -CrCl [...] other systems were reviewed and are negative. [place] Symptom Assessment Score [place] Score Pain Score (if non-verbal, add .FLACC [...] original note were not included. OCCUPATIONAL THERAPY [facility] Name/MRN: Mary Charles ([id number]) Date: 04/09/2025 OT order received, chart review [...] remote tobacco abuse who was admitted to [facility] 04/05/25 with shortness of [...] Normal [] Scar/Lesion/Mass Inspection of teeth/lips/gums: Dentition: [x][place] [employer] Teeth []Dentures Lips/Gums [x]Intact []Lesion Present Oropharynx exam: Mucosa [x][place] []Moist []Dry Neck: External Appearance: Overall Appearance:[x]Normal [...] ABGs: Recent Labs 04/08/25165304/08/252052 PHART 7.296* 7.332* [id number] 80.1* 75.1* PO2ART 92.0 104.0 ZBM2SWR 38.2* 38.9* [id number] 96.1* 97.0 Lactic Acid: No lab exists [...] urology evaluation, strict I/O's, no indication for SSRS REPORT DEVELOPER at this time (would be a poor [...] Pulmonary & Critical Care Medicine [facility] Pager #[phone] [1] atorvastatin, 20 mg, Oral, Nightly carvedilol, [...] critical care time excluding procedures D/w Yamilka, SSRS REPORT DEVELOPER, Rosangela RN and family at bedside. Images from the original note were not included. OCCUPATIONAL THERAPY [facility] Name/MRN: Mary Charles ([id number]) Date: 04/08/2025 Therapy eval and treat orders [...] up with [facility] Hospitalist Progress Note 04/08/20256997393-9481: Please secure chat me for patient care issues. [phone]: Please secure chat [facility] Hospitalist for any issues. Subjective: Admit [...] dose of lorazepam.... Adult diet Clear liquid @[id number]@ 24HR INTAKE/OUTPUT: Intake/Output Summary (Last 24 hours) [...] Date -April 11 or - Location -possible residential facility - Pending the following -clinical improvement, [...] ANAHY CHARLES Mobile Relation: Daughter Preferred language: Kosovan Automatic Paint Sprayer Operator needed? No Westley Martinez MD Division of Hospitalist Medicine [employer] care [facility] PAGER: Epic chat [1] History reviewed. No pertinent past medical history. [2] [3] atorvastatin, 20 mg, Oral, Nightly carvedilol, 3.125 mg, Oral, BID WC [Held by provider] furosemide, 40 mg, IntraVENous, BID hydrALAZINE, 25 mg, Oral, TID iron sucrose, 200 mg, IntraVENous, q24h pantoprazole, 40 mg, Oral, qAM AC [facility] Cardiology /Electrophysiology Progress Note HPI / Interval History: Mary Charles has no prior cardiac history (has not seen a physician for many years) who presented to [facility] with worsening SOB, hypoxia [...] 3. Dysphagia - resolved Spiritual Care Note [facility] Palliative Care Patient Name:Mary Charles Chief Complaint: Chief Complaint Patient presents with Leg Swelling Shortness of Breath Pt arrived to triage for shortness of breath and swelling legs. Pt endorses increased work of breath, weakness, confusion and no appetite. Reason for visit: Paper Tester Consult Services Provided To:patient and family Background and visit note: Patient was early childhood assistant consult. Introduced myself and pastoral care to [...] and when patient is able. Debriefed: with early childhood assistant team. Carmelita Chairez 04/07/25 Images from the original note were not included. PHYSICAL THERAPY [facility] Initial Evaluation Name/MRN: Mary Charles ([id number]) Evaluation Date: 04/07/2025 Date of : 1935 Admission Date: 04/05/2025 3:55 PM Age: 89 y.o. Room/Bed: B2254/[facility]254 A Discharge Recommendation: Residential Facility Equipment Needed: No Assessment IMPRESSION: Pt [...] Needs Assist Receives Help From: Family Active Metal Sander: No Prior Level of Function Prior Level [...] Raw Score (No Stairs) : 11 [facility] Score: Static standing (1 or [...] of Care supervision is transferred to a [facility] Therapy Services Physical Therapist. Goals and/or treatment plan was established in collaboration with patient/family/other representatives. [1] History reviewed. No pertinent past medical history. [2] History reviewed. No pertinent surgical history. Cosigned by Lucrecia Cabral PT at 04/07/2025 4:00 PM EDT Hospitalist Progress Note 04/07/20256991108-3015: Please secure chat me for patient care issues. [phone]: Please secure chat [facility] night Hospitalist for any issues. 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 No Westley Martinez MD Division of Hospitalist Medicine Acute care [facility] PAGER: Epic chat [1] History reviewed. No pertinent past medical history. [2] [3] atorvastatin, 20 mg, Oral, Nightly carvedilol, 3.125 mg, Oral, BID WC furosemide, 40 mg, IntraVENous, BID hydrALAZINE, 25 mg, Oral, TID iron sucrose, 200 mg, IntraVENous, q24h pantoprazole, 40 mg, Oral, qAM AC [facility] [place] [facility] Cardiology /Electrophysiology Progress Note HPI / Interval History: Mary Charles has no prior cardiac history (has not seen a physician for many years) who presented to [facility] with worsening SOB, hypoxia [...] assess Fluid Accumulation: Moderate to Severe Extremities Visitor Services Coordinator Strength: Not Performed Nutrition Assessment: 89 y.o. [...] severe anemia and frailty. Conservative, medical management." administrative nursing supervisor in room. Pt sleeping /snoring -name called numerous times pt did not wake -left undisturbed at this time. Estimated Daily Nutrient Needs: Energy Requirements Based On: Kcal/kg Weight Used for Energy Requirements: [place] Weight for Energy Calculation (kg): 70 kg Total Energy Requirements (kcals/day): 5034-1858 (25-30) Weight Used for Protein Requirements: [place] Weight in Kg Used for Protein Requirements: [...] lb) Usual Body Weight: (unable to obtain) [place] Body Weight (lbs) (Calculated): 154 lbs [place] Body Weight (Kg) (Calculated): 70 kg % [place] Body Weight (Calculated): 129.9 % BMI (kg/m2) [...] soon to determine Kristin Duffy RD Contact: *[phone] or via Secure Chat [1] atorvastatin, 20 mg, Oral, Nightly carvedilol, 3.125 mg, Oral, BID WC furosemide, 40 mg, IntraVENous, BID hydrALAZINE, 25 mg, Oral, TID iron sucrose, 200 mg, IntraVENous, q24h pantoprazole, 40 mg, Oral, qAM AC [2] Hospitalist Progress Note 04/06/2025 [phone]: Please secure chat me for patient care issues. [phone]: Please secure chat [facility] Hospitalist for any issues. Subjective: Admit [...] ferritin, IV Venofer added Adult diet Regular @[id number]@ 24HR INTAKE/OUTPUT: Intake/Output Summary (Last 24 hours) [...] ANAHY CHARLES Mobile Relation: Daughter Preferred language: Kosovan Automatic Paint Sprayer Operator needed? No Westley Martinez MD Division of Hospitalist Medicine Acute care solutions PAGER: ReDigi chat [1] History reviewed. No pertinent past medical history. [2] [3] atorvastatin, 20 mg, Oral, Nightly carvedilol, 3.125 mg, Oral, BID WC furosemide, 40 mg, IntraVENous, BID hydrALAZINE, 25 mg, Oral, TID iron sucrose, 200 mg, IntraVENous, q24h pantoprazole, 40 mg, Oral, qAM AC documented in this encounter [facility] 04-14-2025 Note IR US Thoracentesis 650 ml of hines yellow fluid removed. Vaseline guaze dressing applied. Patient tolerated procedure well. Patient returned to [place] patient room. [facility] 04-14-2025 Consult note Associated Order (s): IP CONSULT TO PALLIATIVE CARE Consult acknowledged. Patient previously seen by palliative care. Signed off on 04-12. Patient has had worsening status in last couple days, worsening pleural effusion. Spoke with pulmonology REFRIGERATOR GLAZIER, Yesi today. Consult placed. Will see tomorrow s/p thoracentesis. Signed, Bela Agustin APRN, CNP, [facility] PGR [phone] Cosigned by Diana Marsh MD at 04/14/2025 1:38 PM EDT Images from the original note were not included. [facility], Pulmonary Medicine [address] [place] [address] [id number] 1935 Date of Admission - 04/05/2025 3:55 PM Date of evaluation - 04/12/2025 Room - [facility] Hospital Day - Consulting - [...] ml Output 650 ml Net -410 ml @[id number]@ Physical Exam Physical Exam Vitals and nursing [...] Pulmonary function tests (PFT's) No PFT's in [facility] Sleep History No sleep study available in [facility] Radiology CXR 04/11/25: IMPRESSION: Cardiomegaly with mild [...] deltoids) Fluid Accumulation: Moderate to Severe Extremities Visitor Services Coordinator Strength: Normal tool 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 Nutrition Assessment: 89 year old man who remains admitted to [facility] with shortness of breath [...] On: Kcal/kg Weight Used for Energy Requirements: [place] Weight for Energy Calculation (kg): 70 kg Total Energy Requirements (kcals/day): 2186-5448 (25-30) Weight Used for Protein Requirements: [place] Weight in Kg Used for Protein Requirements: [...] Body Weight: (none on file to review) [place] Body Weight (lbs) (Calculated): 154 lbs [place] Body Weight (Kg) (Calculated): 70 kg % [place] Body Weight (Calculated): 136.1 % BMI (kg/m2) [...] to determine Darleen Stubbs RDN, LDN, Contact: *[phone] Associated Order(s): INPATIENT CONSULT TO CRITICAL CARE - MEDICAL TEAM Internal Medicine: MICU Initial Consult Name: Mary Charles : 1935(89 y.o.) Date: 04/08/25 Attending: Precious Lewis MD Subjective: Chief Complaint: shortness of breath HPI: Patient is a pleasant 89 year-old male with a history of chronic HFrEF and prior remote tobacco abuse who was admitted to [facility] 04/05/25 with shortness of [...] Normal [] Scar/Lesion/Mass Inspection of teeth/lips/gums Dentition: [x][place] [employer] Teeth []Dentures Lips/Gums: [x]Intact []Lesion Present Mucosa: [x][place] []Moist []Dry Neck: External Appearance Overall Appearance: [...] ABGs: Recent Labs 04/08/25 1654 PHART 7.296* SEB5LAR 80.1* PO2ART 92.0 ELS0KBJ 38.2* D6UCGEVT Nasal Cannula (LPM) Lactic Acid: No results [...] Place garcía, strict I/O's, no indication for SSRS REPORT DEVELOPER at this time (would be a poor [...] care of himself. -Consider medication for mood? -Paper Tester support requested. -Monitor. Hx CKD III -CrCl [...] detailed in the note above. Bela Agustin, INDUSTRIAL COURT MAGISTRATE - FACILITIES ADMINISTRATOR Palliative Care Assessments: Goals of care: Continue [...] Living status: alone Work history: status: No Latter-Day: No christian on file ROS: See palliative care ROS/ESAS below; All other systems were reviewed and are negative. [place] Symptom Assessment Score [place] Score Pain Score (if non-verbal, add .FLACC [...] 2024, has a son who lives in [place] and daughter that lives close by Retired from working at [employer] for 43 years No tobacco use Denies [...] Allergies Associated Order(s): IP CONSULT TO CARDIOLOGY [facility] [place] [facility] Consult Note Reason for Consult/Chief Complaint: [...] daily Consider palliative approach Cari Scherer MD, [facility] DATE of SERVICE: 04/06/2025 [1] History reviewed. No pertinent past medical history. [2] History reviewed. No pertinent surgical history. [3] No family history on file. [4] [5] furosemide, 40 mg, IntraVENous, BID iron sucrose, 200 mg, IntraVENous, q24h pantoprazole, 40 mg, Oral, qAM AC documented in this encounter [facility] 04-13-2025 Hospital Discharg e instructions LOURDES Cervantes CNP - 04/13/2025 12:17 PM EDT Please call [employer] at [phone] to arrange for home NIV once stable [...] ANAHY CHARLES Mobile Relation: Daughter Preferred language: Kosovan Automatic Paint Sprayer Operator needed? No Past Surgical History: History [...] Minimal assistance Toileting Total assistance Feeding Independent Software Deployment Engineer Minimal assistance Med Delivery yes Wound Care [...] Status Date: Discharging to Facility/ Agency Name: [facility] Address:[address] [place] [address] Phone:[phone] Dialysis Facility (if applicable) Name: Address: Dialysis Schedule: Phone: Fax: Education Professional/Limousine Driver signature: ICIAN SECTION Name: Mary Charles Prognosis: [...] a nursing facility directly from an [facility] or a unit of a [facility] that is not operated by or licensed by [facility] under section 5119.14 or 5160-3-15.1 5 The individual requires the level of services provided by a nursing facility for the condition for which he or she was treated in the hospital and, Physician Certification: I certify the above information and transfer of Mary Charles is necessary for the continuing treatment of the diagnosis listed and that he requires residential facility for less than 30 days. Update Admission H&P: No change in H&P PHYSICIAN SIGNATURE: documented in this encounter [facility] 04-09-2025 Note [facility] 04-09-2025 Procedure note Associated Ord er(s): [...] this procedure note documented in this encounter [facility] 04-09-2025 Note [facility] 04-05-2025 Note [facility] 04-05-2025 History and physical note Attending [...] No Known Allergies documented in this encounter [facility] Evaluation note Diagnosis Acute congestive heart failure, unspecified heart failure type (HCC)- Primary Acute congestive heart failure, unspecified heart failure type (HCC) Anemia, unspecified type Shortness of breath Hypoxia Hypoxemia CHF (congestive heart failure), NYHA class I, acute on chronic, combined (HCC) documented in this encounter [facility] note* Diagnosis Acute congestive heart failure, unspecified heart failure type (HCC)- Primary documented in this encounter [facility] note* Diagnosis Chronic systolic heart failure (HCC)- Primary Chronic systolic heart failure Coronary artery disease involving [place] coronary artery of [place] heart without angina pectoris Pleural effusion Unspecified pleural effusion Acute kidney injury superimposed on chronic kidney disease (HCC) (HCC) 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 chronic kidney disease (HCC) PAC (premature atrial contraction) Supraventricular premature beats Abnormal CAT scan Other nonspecific (abnormal) findings on radiological and other examinations of body structure [facility] Diagnosis Chronic systolic heart failure (HCC)- Primary Chronic systolic heart failure Coronary artery disease involving [place] coronary artery of [place] heart without angina pectoris Pleural effusion Unspecified [...] Debility Unspecified debility documented in this encounter [facility] note* Diagnosis Chronic systolic heart failure (HCC)- Primary Chronic systolic heart failure Coronary artery disease involving [place] coronary artery of [place] heart without angina pectoris Pleural effusion Unspecified pleural effusion Acute kidney injury superimposed on chronic kidney disease 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 chronic kidney disease (CMS/HCC) PAC (premature atrial contraction) Supraventricular premature beats Abnormal CAT scan Other nonspecific (abnormal) findings on radiological and other examinations of body structure Chronic systolic heart failure (HCC)- Primary Chronic systolic heart failure [facility] Diagnosis Chronic systolic heart failure (HCC)- Primary Chronic systolic heart failure Coronary artery disease involving [place] coronary artery of [place] heart without angina pectoris Pleural effusion Unspecified pleural effusion Acute kidney injury superimposed on chronic kidney disease 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 chronic kidney disease (CMS/HCC) PAC (premature atrial contraction) Supraventricular premature beats Abnormal CAT scan Other nonspecific (abnormal) findings on radiological and other examinations of body structure Anemia due to chronic kidney disease, unspecified CKD stage- Primary [facility] Diagnosis Chronic systolic heart failure (HCC)- Primary Chronic systolic heart failure Coronary artery disease involving [place] coronary artery of [place] heart without angina pectoris Pleural effusion Unspecified pleural effusion Acute kidney injury superimposed on chronic kidney disease 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 chronic kidney disease (CMS/HCC) PAC (premature atrial contraction) Supraventricular premature beats Abnormal CAT scan Other nonspecific (abnormal) findings on radiological and other examinations of body structure Symptomatic anemia- Primary documented in this encounter [facility] Chief Complaint and Reason for Visit [...] type (HCC) Procedures .. Clara, Albaro, MD [address] [place] [address] Phone: tel: fax: [facility] Cardiac Progressive Care Unit [address] [place] [address] Phone: tel: Referral ID Status Reason Start Date Expiration Date Visits Re quested Visits Authorized [id number] 1 Reason Comments Hospital Follow-up Congestive [...] sedation for opioid reversal - MUST notify exceptional children teacher assistant provider immediately after first dose, may give [...] Care Teams (unrecognized sec tion and content) Bass Guitar Teacher Relationship Specialty Start Date End Date Aliya Tadeo RN Litigation Services Manager Manager 04/09/25 Bass Guitar Teacher Relationship Specialty Start Date End Date Aliya Tadeo RN Litigation Services Manager Manager 04/09/25 Bass Guitar Teacher Relationship Specialty Start Date End Date Aliya Tadeo RN Registered Nurse Litigation Services Manager Manager 04/09/25 Bass Guitar Teacher Relationship Specialty Start Date End Date Aliya Tadeo RN Registered Nurse Litigation Services Manager Manager 04/09/25 Bass Guitar Teacher Relationship Specialty Start Date End Date Aliya Tadeo RN Registered Nurse Litigation Services Manager Manager 04/09/25 Bass Guitar Teacher Relationship Specialty Start Date End Date Aliya Tadeo RN Registered Nurse Litigation Services Manager Manager 04/09/25 Bass Guitar Teacher Relationship Specialty Start Date End Date Aliya Tadeo RN Registered Nurse Litigation Services Manager Manager 04/09/25 Bass Guitar Teacher Relationship Specialty Start Date End Date Ravi Kirk DO [address] [place] [id number] PCP - General Internal Medicine 07/19/25 (unrecognized sect ion and content) No Status Records FoundNo Status Records Found INFORMATION SOURCE (unrecogn ized section and content) DATE CREATED AUTHOR 07/19/2025 [facility] DATE CREATED AUTHOR BRENDENS KIYA TROTTER 07/20/2025 [facility] FOR RECORDS PERTAINING TO PATIENTS WHO [...] BE BASED ON THE PRIMARY CLINICAL RECORDS. [facility] [employer] [facility]. provides no warranty or guarantee of the accuracy or completeness of information in this document.
[2025-08-18 08:40] LABS: Hematocrit 20.9 % (40-54); Hemoglobin 6.4 g/dL (13.0-16.5)
== END ==
LOC: OLS.ACH2 05:00
PROVIDERS: PCP Internal Medicine; Visit Provider Internal Medicine
DX: D64.9 Anemia, unspecified (principal)
CPT/HCPCS: 36415; 85014; 85018

== ENCOUNTER → 2025-08-25 05:00 | Outpatient (REF) | payer MEDICARE, SELFPAY ==
--- OUTSIDE RECORDS SUMMARY | 2025-08-25 04:46 | XMS RPT_ITS | CCD ---
Author Organization [facility] Care Team Providers Care Clearance Center Manager Name Role Phone Aliya Tadeo RN Unavailable Unavailable Deperro OLS, Ravi Attending Unavailable Ghourbrial, Negro Primary [facility] Unavailable Ghourbrial, Negro Primary [facility] Unavailable Deperro OLS, Ravi Attending Unavailable Deperro OLS, Ravi Attending Unavailable Ghourbrial, [facility] Unavailable Deperro OLS, Ravi Attending Unavailable Ghourbrial, [facility] Primary Care Unavailable Deperro OLS, Ravi Attending Unavailable Ghourbrial, [facility] Primary Care Unavailable Deperro OLS, Ravi [...] Unavailable Deperro DO, Ravi Primary Care Provider [phone] Unavailable Unavailable Unavailable Medications Current Medications Medication [...] 04-17-2025 docusate sodium 50 mg / sennosides, correction 8.6 mg oral tablet (15 sources) Start: [...] Start: 04-05-2025 End: 04-06-2025 polyethylene glycol 3350 77309 mg powder for oral solution (4 sources) [...] Coronary arteriosclerosis; Translations: [Atherosclerotic heart disease of [place] coronary artery without angina pectoris] Onset: 05-03-2025 [...] Mando 07-19-2025 ABO GROUPING A Normal [facility] Comment on above: Performed By: #### L [id number] ####Utility Inspector: UNA ARCE ([id number])[facility] BLOOD BANK ([facility])[address] RH TYPE IN BLOOD Negative Normal [facility] Comment on above: Performed By: #### L AB276 ####Utility Inspector: UNA ARCE ([id number])[facility]OD [facility] ([facility])[address] [place], [place] [id number] [place] [address] Basic Metabolic Profile (BMP )on 07-19-2025 BUN/CRE 17.2 RATIO Normal 10-20 [facility] Comment on above: Order Comment: 542.1 Performed By: #### L 500.2500, L100.0500 #### [facility] [address] [place], [address] Calcium [Mass/Vol] 8.6 mg/dL Normal 7.6-11.0 [facility] Comment on above: Order Comment: 542.1 Performed By: #### L 500.2500, L100.0500 #### [facility] [address] [place], [address] Chloride [Moles/Vol] 99 mmol/L Normal 98-108 [facility] Comment on above: Order Comment: 542.1 Performed By: #### L 500.2500, L100.0500 #### [facility] [address] [place], [address] CO2 [Moles/Vol] 28.6 mmol/L Normal 21.0-32.0 [facility] Comment on above: Order Comment: 542.1 Performed By: #### L 500.2500, L100.0500 #### [facility] [address] [place], [address] Creatinine [Mass/Vol] 1.77 mg/dL High 0.70-1.[address] [facility] Comment on above: Order Comment: 542.1 Performed By: #### L 500.2500, L100.0500 #### [facility] [address] [place], [address] GAP 9 Normal 5-15 [facility] Comment on above: Order Comment: 542.1 Performed By: #### L 500.2500, L100.0500 #### [facility] [address] [place], [address] GFR/1.73 sq M.predicted among non-blacks MDRD (S/P/Bld) [Vol rate/Area] 36 mL/min/{1.73_m2} Low >60 [facility] Comment on above: Order Comment: 542.1 Result Comment: mL/m in/1.73m2 CKD-EPI Creatinine Equation (2020) Performed By: #### L 500.2500, L100.0500 #### [facility] [address] [place], [address] Glucose [Mass/Vol] 93 mg/dL Normal 70-99 [facility] Comment on above: Order Comment: 542.1 Performed By: #### L 500.2500, L100.0500 #### [facility] [address] [place], [address] Potassium [Moles/Vol] 3.7 mmol/L Normal 3.3-5.[address] [facility] Comment on above: Order Comment: 542.1 Performed By: #### L 500.2500, L100.0500 #### [facility] [address] [place], [address] Sodium [Moles/Vol] 137 mmol/L Normal 133-145 [facility] Comment on above: Order Comment: 542.1 Performed By: #### L 500.2500, L100.0500 #### [facility] [address] [place], [address] Urea nitrogen [Mass/Vol] 30 mg/dL High 4-19 [facility] Comment on above: Order Comment: 542.1 Performed By: #### L 500.2500, L100.0500 #### [facility] [address] [place], [address] Blood type and Crossmatch keagan victor (Bld)on 07-19-2025 ABO group Froilan (Bld) A [facility] Blood group antibody screen GEL Ql Negative [facility] D Ag Ql (RBC) Negative [facility] Healt h [facility] CBC W Auto Differential pane l (Bld)Ordered By: Haroldo Alvarez on 07-19-2025 Erythrocyte distribution width (RBC) [Ratio] 14.0 % 11.5 - 15.0 % [facility] Hematocrit (Bld) [Volume fraction] 24.6 % Low 40.0 - 52.0 % [facility] Hemoglobin (Bld) [Mass/Vol] 7.8 g/dL Low 13.0 - 18.0 g/dL [facility] Interpretation and review of laboratory results Abnormal [facility] MCH (RBC) [Entitic mass] 29.2 pg 26. 0 - 34.0 pg [facility] MCHC (RBC) [Mass/Vol] 31.7 % 30.5 - 36.0 % [facility] MCV (RBC) [Entitic vol] 92.1 fL 77.0 - 99.0 fL [facility] Platelet mean volume (Bld) [Entitic vol] 8.3 fL Low 9.0 - 12.7 fL [facility] Platelets (Bld) [#/Vol] 581 10*3/uL High 140 - 440 10*3/uL [facility] RBC (Bld) [#/Vol] 2.67 10*6/uL Low 4.40 - 5.9 0 10*6/uL [facility] WBC (Bld) [#/Vol] 15.6 10*3/uL High 3.6 - 10.7 10*3/uL [facility] CBC WITH AUTO DIFFERENTIALon 07-19-2025 Erythrocyte distribution width (RBC) [Ratio] 14.0 % Normal 11.5-15.0 [facility] Comment on above: Performed By: #### L [id number], [id number] ####Utility Inspector: UNA ARCE ([id number])[facility] ([address] Hematocrit (Bld) [Volume fraction] 24.6 % Low 40.0-52.0 [facility] Comment on above: Performed By: #### L [id number], [id number] ####Utility Inspector: UNA ARCE ([id number])[facility] ([facility])[address] Hemoglobin (Bld) [Mass/Vol] 7.8 g/dL Low 13.0-18.0 [facility] Comment on above: Performed By: #### L [id number], [id number] ####Utility Inspector: UNA YAZMIN ([id number])[facility] ([facility])[address] MCH (RBC) [Entitic mass] 29.2 pg Normal 26.0-34.0 [facility] Comment on above: Performed By: #### L [id number], [id number] ####Utility Inspector: UNA BERMUDEZPEDRO ([id number])[facility] ([facility])[address] MCHC 31.7 % Normal 30.5-36.0 [facility] Comment on above: Performed By: #### L [id number], [id number] ####Utility Inspector: UNA ARCE ([id number])[facility] ([facility])[address] MCV (RBC) [Entitic vol] 92.1 fL Normal 77.0-99.0 [facility] Comment on above: Performed By: #### L LA7566, [id number] ####Utility Inspector: UNA ARCE ([id number])[facility] ([facility])[address] Platelet mean volume (Bld) [Entitic vol] 8.3 fL Low 9.0-12.7 [facility] Comment on above: Performed By: #### L OS8049, [id number] ####Utility Inspector: UNA ARCE ([id number])[facility] ([facility])[address] Platelets (Bld) [#/Vol] 581 10*3/uL High 140-440 [facility] Comment on above: Performed By: #### L [id number], [id number] ####Utility Inspector: UNAANJEL ARCE ([id number])[facility] ([facility])[address] [place] [address] RBC (Bld) [#/Vol] 2.67 10*6/uL Low 4.40-5.90 [facility] Comment on above: Performed By: #### L [id number], [id number] ####Utility Inspector: UNAANJEL ARCE ([id number])[facility] [place] ([facility])[address] [place] [address] WBC (Bld) [#/Vol] 15.6 10*3/uL High 3.6-10.7 [facility] Comment on above: Performed By: #### L PW0037, [id number] ####Utility Inspector: UNAANJEL ARCE ([id number])[facility] ([facility])[address] [place] [address] CBC-Complete Blood Cnt No [facility] 07-19-2025 Erythrocyte distribution width (RBC) [Ratio] 14.1 % Normal 11.6-14.6 [facility] Comment on above: Order Comment: 542.1 Performed By: #### L 500.2500, L100.0500 #### [facility] [address] [place], [address] Hematocrit (Bld) [Volume fraction] 21.2 % Low 40-54 [facility] Comment on above: Order Comment: 542.1 Performed By: #### L 500.2500, L100.0500 #### [facility] [address] [place], [address] Hemoglobin (Bld) [Mass/Vol] 6.6 g/dL Low 13.0-16.5 [facility] Comment on above: Order Comment: 542.1 Performed By: #### L 500.2500, L100.0500 #### [facility] [address] [place], [address] MCH (RBC) [Entitic mass] 28.9 pg Normal 27.0-32.0 [facility] Comment on above: Order Comment: 542.1 Performed By: #### L 500.2500, L100.0500 #### [facility] [address] [place], [address] MCHC (RBC) [Mass/Vol] 31.1 g/dL Low 32-[address] [facility] Comment on above: Order Comment: 542.1 Performed By: #### L 500.2500, L100.0500 #### [facility] [address] [place], [address] MCV (RBC) [Entitic vol] 93.0 fL Normal 80-94 [facility] Comment on above: Order Comment: 542.1 Performed By: #### L 500.2500, L100.0500 #### [facility] [address] [place], [address] Platelet mean volume (Bld) [Entitic vol] 8.5 fL Normal 6.2-12.0 [facility] Comment on above: Order Comment: 542.1 Performed By: #### L 500.2500, L100.0500 #### [facility] [address] [place], [address] Platelets (Bld) [#/Vol] 516 10*3/uL High 150-450 [facility] Comment on above: Order Comment: 542.1 Performed By: #### L 500.2500, L100.0500 #### [facility] [address] [place], [address] RBC (Bld) [#/Vol] 2.28 10*6/uL Low 4.6-6.2 [facility] Comment on above: Order Comment: 542.1 Performed By: #### L 500.2500, L100.0500 #### [facility] [address] [place], [address] RDW SD 47.1 fl High 35.1-43.9 [facility] Comment on above: Order Comment: 542.1 Performed By: #### L 500.2500, L100.0500 #### [facility] [address] [place], [address] WBC (Bld) [#/Vol] 12.9 10*3/uL High 4.4-11.0 [facility] Comment on above: Order Comment: 542.1 Performed By: #### L 500.2500, L100.0500 #### [facility] [address] [place], [address] ED Nursing Noteon 07-19-2025 ED Nursing Note [facility] arrived to transport pt to home facility . Pt transferred to stretcher without difficulty. Pt A&O, calm, and cooperative, no signs of distress noted. VS stable. Resp even, non labored. Normal [facility] ED Nursing Note Report given to [facility]. Marleni Normal [facility] ED Nursing Note Post H&H not needed per Dr. Rose. Ok to dc 30 mins after unit is complete. Normal [facility] ED Nursing Note Meal order placed Normal [facility] ED Nursing Note This RN sat bedside for the first 15 mins of blood transfusion. Pt denied c/o any transfusion reaction symptoms. Pt's vitals rechecked before leaving the room. Normal [facility] ED Provider Noteon ED Provider Note Normal [facility] MANUAL DIFFERENTIALon 2024 BASOPHILS (10*3/UL) IN BLOOD BY MANUAL COUNT 0.3 10*3/uL High 0.0-0.2 [facility] Comment on above: Performed By: #### L [id number], [id number] ####Utility Inspector: UNA ARCE ([id number])[facility] ([facility])[address] [place] [address] BASOPHILS/100 LEUKOCYTES IN BLOOD BY MANUAL COUNT 2 % Normal 0-2 [facility] Comment on above: Performed By: #### L [id number], [id number] ####Utility Inspector: UNA ARCE ([id number])[facility] [place] ([facility])[address] CELLS COUNTED TOTAL (#) IN BLOOD 100 Normal [facility] Comment on above: Performed By: #### L SX8010, [id number] ####Utility Inspector: UNA ARCE ([id number])[facility] [place] ([facility])[address] DIFFERENTIAL METHOD Manual differential performed Normal [facility] Comment on above: Performed By: #### L [id number], [id number] ####Utility Inspector: UNA ARCE ([id number])[facility] ([facility])[address] EOSINOPHILS (10*3/UL) IN BLOOD BY MANUAL COUNT 0.3 10*3/uL Normal 0.0-0.5 [facility] Comment on above: Performed By: #### L [id number], [id number] ####Utility Inspector: UNA ARCE ([id number])[facility] [place] ([facility])[address] [place] [address] [place] EOSINOPHILS/100 LEUKOCYTES IN BLOOD BY MANUAL COUNT 2 % Normal 0-6 [facility] Comment on above: Performed By: #### L SU6277, [id number] ####Utility Inspector: UNA ARCE ([id number])[facility] [place] ([facility])[address] [place] [address] [place] HYPOCHROMIA (PRESENCE) IN BLOOD BY LIGHT MICROSCOPY Slight Abnormal (none) [facility] Comment on above: Performed By: #### L [id number], [id number] ####Utility Inspector: UNA ARCE ([id number])[facility] [place] ([facility])[address] LEUKOCYTE MORPHOLOGY FINDING IN BLOOD Normal Normal [facility] Comment on above: Performed By: #### L [id number], [id number] ####Utility Inspector: UNAANJEL ARCE ([id number])[facility] [place] ([facility])[address] [place] [address] [place] LYMPHOCYTES (10*3/UL) IN BLOOD BY MANUAL COUNT 3.3 10*3/uL Normal 1.0-4.3 [facility] Comment on above: Performed By: #### L [id number], [id number] ####Utility Inspector: UNAANJEL ARCE ([id number])[facility] [place] ([facility])[address] [place] [address] [place] LYMPHOCYTES/100 LEUKOCYTES IN BLOOD BY MANUAL COUNT 21 % Normal 15-45 [facility] Comment on above: Performed By: #### L [id number], [id number] ####Utility Inspector: UNAANJEL ARCE ([id number])[facility] [place] ([facility])[address] [place] [address] [place] MONOCYTES (10*3/UL) IN BLOOD BY MANUAL COUNT 1.4 10*3/uL High 0.0-0.9 [facility] Comment on above: Performed By: #### L [id number], [id number] ####Utility Inspector: UNA BERMUDEZPEDRO ([id number])[facility] [place] ([facility])[address] [place] [address] [place] MONOCYTES/100 LEUKOCYTES IN BLOOD BY MANUAL COUNT 9 % Normal 5-13 [facility] Comment on above: Performed By: #### L [id number], [id number] ####Utility Inspector: UNA BERMUDEZPEDRO ([id number])[facility] [place] ([facility])[address] [place] [address] [place] OVALOCYTES PRESENCE IN BLOOD BY LIGHT MICROSCOPY Slight Abnormal (none) [facility] Comment on above: Performed By: #### L [id number], [id number] ####Utility Inspector: UNA STAUFFERMELANIE ([id number])[facility] [place] ([facility])[address] [place] [address] [place] PLATELET MORPHOLOGY IN BLOOD Normal Normal [facility] Comment on above: Performed By: #### L [id number], [id number] ####Utility Inspector: UNAANJEL ARCE ([id number])[facility] ([facility])[address] POLYCHROMASIA IN BLOOD BY LIGHT MICROSCOPY Slight Abnormal (none) [facility] Comment on above: Performed By: #### L [id number], [id number] ####Utility Inspector: UNA BERMUDEZPEDRO ([id number])[facility] ([facility])[address] SEGEMENTED NEUTROPHILS/100 LEUKOCYTES BY MANUAL COUNT 66 % Normal 38-82 [facility] Comment on above: Performed By: #### L [id number], [id number] ####Utility Inspector: UNA YAZMIN ([id number])[facility] (SBHL[facility])[address] [place] [address] SEGMENTED NEUTROPHILS (10*3/UL)IN BLOOD BY MANUAL COUNT 10.3 10*3/uL High 1.8-7.5 [facility] Comment on above: Performed By: #### L [id number], [id number] ####Utility Inspector: UNA YAZMIN ([id number])[facility] ([facility])[address] [place] [address] Manual differential performe d Ql (Bld)Ordered By: Myriam Choi on 07-19-2025 Basophils (Bld) [#/Vol] 0.3 10*3/uL High 0.0 - 0.2 10*3/uL [facility] Basophils/100 WBC (Bld) 2 % 0 - 2 % [facility] Cells Counted Total (Bld) [#] 100 {cells} [facility] Differential Method Manual differential performed [facility] Eosinophils (Bld) [#/Vol] 0.3 10*3/uL 0.0 - 0.5 10*3/uL [facility] Eosinophils/100 WBC (Bld) 2 % 0 - 6 % [facility] Hypochromia Ql (Bld) Slight Abnormal (none) [facility] Interpretation and review of laboratory results Abnormal [facility] Leukocyte morphology finding Nom (Bld) Normal [facility] Lymphocytes (Bld) [#/Vol] 3.3 10*3/uL 1.0 - 4.3 10*3/uL [facility] Lymphocytes/100 WBC (Bld) 21 % 15 - 45 % [facility] Monocytes (Bld) [#/Vol] 1.4 10*3/uL High 0.0 - 0.9 10*3/uL [facility] Monocytes/100 WBC (Bld) 9 % 5 - 13 % [facility] Neutrophils (Bld) [#/Vol] 10.3 10*3/uL High 1.8 - 7.5 10*3/uL [facility] Ovalocytes LM Ql (Bld) Slight Abnormal (none) [facility] Platelet morphology finding Nom (Bld) Normal [facility] Polychromasia LM Ql (Bld) Slight Abnormal (none) [facility] Segmented neutrophils/100 WBC (Bld) 66 % 38 - 82 % [facility] No Panel Informationon 07-19 Blood Expiration Date [id number] S [facility] Crossmatch interpretation COMP [facility] Dispense Status Transfused [facility] Blood Type 600 [facility] PRODUCT CODE [id number] [facility] ABO A [facility] Unit [id number] Negative [facility] Volume 300 mL [facility] Progress Noteon 07-19-2025 Progress Note Normal [facility] Progress Noteon 07-15-2025 Progress Note Normal [facility] 36on 07-14-2025 36 Faxed signed order t o [facility] fax#[phone], and scanned to Media. Normal [facility] [address] Hess. Normal [facility] 36 [facility] faxed order to discontinue Hydralazine, and Spironolactone. Placed on nurses desk to have Dr. Hess sign it. Normal [facility] 36on 07-07-2025 36 Darby called back t o verify the diuretic instructions; she had the Lasix written down, so I verified that it was actually torsemide. She verbalized understanding and was thankful for the call. Normal [facility] 36 Normal [facility] Folates,Serum (Folic Acid)on 07-07-2025 FOLATES,SERUM 8.25 ng/mL Normal 4.60-34.80 [facility] Comment on above: Order Comment: 542-1 N Performed By: #### L 506.0200, L100.0600, L503.0106, L503.6030 #### [facility] [address] [place], [address] HH, Hemoglobin AND Hematocri ton 07-07-2025 Hematocrit (Bld) [Volume fraction] 23.3 % Low 40-54 [facility] Comment on above: Order Comment: 542-1 Performed By: #### L 506.0200, L100.0600, L503.0106, L503.6030 #### [facility] [address] [place], [address] Hemoglobin (Bld) [Mass/Vol] 7.3 g/dL Low 13.0-16.5 [facility] Comment on above: Order Comment: 54-1 Performed By: #### L 506.0200, L100.0600, L503.0106, L503.6030 #### [facility] [address] [place], [address] Iron+Iron Binding Capacityon 07-07-2025 Iron [Mass/Vol] 27 ug/dL Low 65-175 [facility] Comment on above: Order Comment: 542-1 Performed By: #### L 506.0200, L100.0600, L503.0106, L503.6030 #### [facility] [address] [place], [address] IRON SATURATION 9.6 Normal 9-55 [facility] Comment on above: Order Comment: 542-1 Performed By: #### L 506.0200, L100.0600, L503.0106, L503.6030 #### [facility] [address] [place], [address] TIBC 278 ug/dL Normal 250-450 [facility] Comment on above: Order Comment: 542-1 Performed By: #### L 506.0200, L100.0600, L503.0106, L503.6030 #### [facility] [address] [place], [address] UIBC 251 ug/dL Normal 228-428 [facility] Comment on above: Order Comment: 542-1 Performed By: #### L 506.0200, L100.0600, L503.0106, L503.6030 #### [facility] [address] [place], [address] Vitamin B12on 07-07-2025 Cobalamin (Vitamin B12) [Mass/Vol] 334 pg/mL Normal 180-914 [facility] Comment on above: Order Comment: 542-1 Performed By: #### L 506.0200, L100.0600, L503.0106, L503.6030 #### [facility] [address] [place], [address] 36on 07-06-2025 36 Cr 1.9, K+ 3.7, hemoglobin 7.1 on 07/05/25. BP's mostly 100-110's/50/60's; one SBP outlier of 94, one outlier of 121. HR's 60-70's. Note from nursing: Normal [facility] 36 [facility] faxed 07/05/25 BMP, and CBC, and vitals. Records to be scanned to chart. Normal [facility] 36 Normal [facility] Basic Metabolic Profile (BMP )on 07-05-2025 BUN/CRE 20.8 RATIO High 06-28 [facility] Comment on above: Order Comment: 542-1 N Performed By: #### L 506.0200, L100.0600, L503.0106, L503.6030 #### [facility] [address] [place], [address] Calcium [Mass/Vol] 8.5 mg/dL Normal 7.6-11.0 [facility] Comment on above: Order Comment: 542-1 N Performed By: #### L 506.0200, L100.0600, L503.0106, L503.6030 #### [facility] [address] [place], [address] Chloride [Moles/Vol] 101 mmol/L Normal 98-108 [facility] Comment on above: Order Comment: 542-1 N Performed By: #### L 506.0200, L100.0600, L503.0106, L503.6030 #### [facility] [address] [place], [address] CO2 [Moles/Vol] 28.6 mmol/L Normal 21.0-32.0 [facility] Comment on above: Order Comment: 542-1 N Performed By: #### L 506.0200, L100.0600, L503.0106, L503.6030 #### [facility] [address] [place], [address] Creatinine [Mass/Vol] 1.90 mg/dL High 0.70-1.[address] [facility] Comment on above: Order Comment: 542-1 N Performed By: #### L 506.0200, L100.0600, L503.0106, L503.6030 #### [facility] [address] [place], [address] GAP 10 Normal 5-15 [facility] Comment on above: Order Comment: 542-1 N Performed By: #### L 506.0200, L100.0600, L503.0106, L503.6030 #### [facility] [address] [place], [address] GFR/1.73 sq M.predicted among non-blacks MDRD (S/P/Bld) [Vol rate/Area] 33 mL/min/{1.73_m2} Low >60 [facility] Comment on above: Order Comment: 542-1 N Result Comment: mL/m in/1.73m2 CKD-EPI Creatinine Equation (2020) Performed By: #### L 506.0200, L100.0600, L503.0106, L503.6030 #### [facility] [address] [place], [address] Glucose [Mass/Vol] 92 mg/dL Normal 70-99 [facility] Comment on above: Order Comment: 542-1 N Performed By: #### L 506.0200, L100.0600, L503.0106, L503.6030 #### [facility] [address] [place], [address] Potassium [Moles/Vol] 3.7 mmol/L Normal 3.3-5.[address] [facility] Comment on above: Order Comment: 542-1 N Performed By: #### L 506.0200, L100.0600, L503.0106, L503.6030 #### [facility] [address] [place], [address] Sodium [Moles/Vol] 140 mmol/L Normal 133-145 [facility] Comment on above: Order Comment: 542-1 N Performed By: #### L 506.0200, L100.0600, L503.0106, L503.6030 #### [facility] [address] [place], [address] Urea nitrogen [Mass/Vol] 40 mg/dL High 4-19 [facility] Comment on above: Order Comment: 542-1 N Performed By: #### L 506.0200, L100.0600, L503.0106, L503.6030 #### [facility] [address] [place], [address] CBC-Complete Blood Cnt No Di ffon 07-05-2025 Erythrocyte distribution width (RBC) [Ratio] 14.8 % High 11.6-14.6 [facility] Comment on above: Order Comment: 542-1 N Performed By: #### L 506.0200, L100.0600, L503.0106, L503.6030 #### [facility] [address] [place], [address] Hematocrit (Bld) [Volume fraction] 23.2 % Low 40-54 [facility] Comment on above: Order Comment: 542-1 N Performed By: #### L 506.0200, L100.0600, L503.0106, L503.6030 #### [facility] [address] [place], [address] Hemoglobin (Bld) [Mass/Vol] 7.1 g/dL Low 13.0-16.5 [facility] Comment on above: Order Comment: 542-1 N Performed By: #### L 506.0200, L100.0600, L503.0106, L503.6030 #### [facility] [address] [place], [address] MCH (RBC) [Entitic mass] 28.9 pg Normal 27.0-32.0 [facility] Comment on above: Order Comment: 542-1 N Performed By: #### L 506.0200, L100.0600, L503.0106, L503.6030 #### [facility] [address] [place], [address] MCHC (RBC) [Mass/Vol] 30.6 g/dL Low 32-[address] [facility] Comment on above: Order Comment: 542-1 N Performed By: #### L 506.0200, L100.0600, L503.0106, L503.6030 #### [facility] [address] [place], [address] MCV (RBC) [Entitic vol] 94.3 fL High 80-94 [facility] Comment on above: Order Comment: 542-1 N Performed By: #### L 506.0200, L100.0600, L503.0106, L503.6030 #### [facility] [address] [place], [address] Platelet mean volume (Bld) [Entitic vol] 8.8 fL Normal 6.2-12.0 [facility] Comment on above: Order Comment: 542-1 N Performed By: #### L 506.0200, L100.0600, L503.0106, L503.6030 #### [facility] [address] [place], [address] Platelets (Bld) [#/Vol] 507 10*3/uL High 150-450 [facility] Comment on above: Order Comment: 542-1 N Performed By: #### L 506.0200, L100.0600, L503.0106, L503.6030 #### [facility] [address] [place], [address] RBC (Bld) [#/Vol] 2.46 10*6/uL Low 4.6-6.2 [facility] Comment on above: Order Comment: 542-1 N Performed By: #### L 506.0200, L100.0600, L503.0106, L503.6030 #### [facility] [address] [place], [address] RDW SD 49.7 fl High 35.1-43.9 [facility] Comment on above: Order Comment: 542-1 N Performed By: #### L 506.0200, L100.0600, L503.0106, L503.6030 #### [facility] [address] [place], [address] WBC (Bld) [#/Vol] 12.0 10*3/uL High 4.4-11.0 [facility] Comment on above: Order Comment: 542-1 N Performed By: #### L 506.0200, L100.0600, L503.0106, L503.6030 #### [facility] [address] [place], [address] Progress Noteon 06-30-2025 Progress Note Normal [facility] Basic Metabolic Profile (BMP )on 06-28-2025 BUN/CRE 23.4 RATIO High - [facility] Comment on above: Order Comment: 212.1 Performed By: #### L 500.2500 #### [facility] [address] [place], [address] Calcium [Mass/Vol] 8.4 mg/dL Normal 7.6-11.0 [facility] Comment on above: Order Comment: 212.1 Performed By: #### L 500.2500 #### [facility] [address] [place], [address] Chloride [Moles/Vol] 100 mmol/L Normal 98-108 [facility] Comment on above: Order Comment: 212.1 Performed By: #### L 500.2500 #### [facility] [address] [place], [address] CO2 [Moles/Vol] 27.4 mmol/L Normal 21.0-32.0 [facility] Comment on above: Order Comment: 212.1 Performed By: #### L 500.2500 #### [facility] [address] [place], [address] Creatinine [Mass/Vol] 1.72 mg/dL High 0.70-1.[address] [facility] Comment on above: Order Comment: 212.1 Performed By: #### L 500.2500 #### [facility] [address] [place], [address] GAP 10 Normal 5-15 [facility] Comment on above: Order Comment: 212.1 Performed By: #### L 500.2500 #### [facility] [address] [place], [address] GFR/1.73 sq M.predicted among non-blacks MDRD (S/P/Bld) [Vol rate/Area] 38 mL/min/{1.73_m2} Low >60 [facility] Comment on above: Order Comment: 212.1 Result Comment: mL/m in/1.73m2 CKD-EPI Creatinine Equation (2020) Performed By: #### L 500.2500 #### [facility] [address] [place], [address] Glucose [Mass/Vol] 88 mg/dL Normal 70-99 [facility] Comment on above: Order Comment: 212.1 Performed By: #### L 500.2500 #### [facility] [address] [place], [address] Potassium [Moles/Vol] 3.9 mmol/L Normal 3.3-5.[address] [facility] Comment on above: Order Comment: 212.1 Performed By: #### L 500.2500 #### [facility] [address] [place], [address] Sodium [Moles/Vol] 137 mmol/L Normal 133-145 [facility] Comment on above: Order Comment: 212.1 Performed By: #### L 500.2500 #### [facility] [address] [place], [address] Urea nitrogen [Mass/Vol] 40 mg/dL High 4-19 [facility] Comment on above: Order Comment: 212.1 Performed By: #### L 500.2500 #### [facility] [address] [place], [address] 36on 06-24-2025 36 Normal [facility] 36 Normal [facility] 36 06/24/25 BMP, blood pressure, pulse summary, and medication notes faxed from [facility]. Records scanned to Media. Normal [facility] Basic Metabolic Profile (BMP )on 06-24-2025 BUN/CRE 25.8 RATIO High 10-20 [facility] Comment on above: Order Comment: 212.1 Performed By: #### L 500.2500 #### [facility] [address] [place], [address] Calcium [Mass/Vol] 8.4 mg/dL Normal 7.6-11.0 [facility] Comment on above: Order Comment: 212.1 Performed By: #### L 500.2500 #### [facility] [address] [place], [address] Chloride [Moles/Vol] 97 mmol/L Low 98-108 [facility] Comment on above: Order Comment: 212.1 Performed By: #### L 500.2500 #### [facility] [address] [place], [address] CO2 [Moles/Vol] 26.9 mmol/L Normal 21.0-32.0 [facility] Comment on above: Order Comment: 212.1 Performed By: #### L 500.2500 #### [facility] [address] [place], [address] Creatinine [Mass/Vol] 1.80 mg/dL High 0.70-1.[address] [facility] Comment on above: Order Comment: 212.1 Performed By: #### L 500.2500 #### [facility] [address] [place], [address] GAP 12 Normal 5-15 [facility] Comment on above: Order Comment: 212.1 Performed By: #### L 500.2500 #### [facility] [address] [place], [address] GFR/1.73 sq M.predicted among non-blacks MDRD (S/P/Bld) [Vol rate/Area] 36 mL/min/{1.73_m2} Low >60 [facility] Comment on above: Order Comment: 212.1 Result Comment: mL/m in/1.73m2 CKD-EPI Creatinine Equation (2020) Performed By: #### L 500.2500 #### [facility] [address] [place], [address] Glucose [Mass/Vol] 87 mg/dL Normal 70-99 [facility] Comment on above: Order Comment: 212.1 Performed By: #### L 500.2500 #### [facility] [address] [place], [address] Potassium [Moles/Vol] 3.8 mmol/L Normal 3.3-5.[address] [facility] Comment on above: Order Comment: 212.1 Performed By: #### L 500.2500 #### [facility] [address] [place], [address] Sodium [Moles/Vol] 137 mmol/L Normal 133-145 [facility] Comment on above: Order Comment: 212.1 Performed By: #### L 500.2500 #### [facility] [address] [place], [address] Urea nitrogen [Mass/Vol] 47 mg/dL High 4-19 [facility] Comment on above: Order Comment: 212.1 Performed By: #### L 500.2500 #### [facility] [address] [place], [address] Progress Noteon 06-24-2025 Progress Note Attempted to meet with pt. He no longer resides here. Facility uncertain where he has moved to. Message left on primary contacts number Bereket to return call to the palliative group at [phone] [facility] BASIC METABOLIC PANELon 06-09 Anion gap [Moles/Vol] 15 mmol/L High 3-13 [facility] Comment on above: Performed By: #### L AB15 ####Utility Inspector: UNA ARCE ([id number])[facility] (SBHLAB)[address] Calcium [Mass/Vol] 8.4 mg/dL Low 8.8-10.0 [facility] Comment on above: Performed By: #### L AB15 ####Utility Inspector: UNA ARCE ([id number])[facility] ([facility])[address] Chloride [Moles/Vol] 97 mmol/L Low 98-107 [facility] Comment on above: Performed By: #### L AB15 ####Utility Inspector: UNA MOHRCER ([id number])[facility] [place] ([facility])[address] CO2 [Moles/Vol] 25 mmol/L Normal 23-31 [facility] Comment on above: Performed By: #### L AB15 ####Utility Inspector: UNA ARCE ([id number])[facility] [place] ([facility])[address] Creatinine [Mass/Vol] 1.97 mg/dL High 0.72-1.25 [facility] Comment on above: Performed By: #### L AB15 ####Utility Inspector: UNA STAUFFERMELANIE ([id number])[facility] [place] ([facility])[address] GLOMERULAR FILTRATION RATE ML/MIN/1.73 SQ M.PREDICTED 31.9 mL/min/1.73m*2 Low >60.0 [facility] Comment on above: Result Comment: Calc ulation based on the Chronic Kidney Disease Epidemiology Collaboration (CKD-EPI) equation refit without adjustment for race Performed By: #### L AB15 ####Utility Inspector: UNA ARCE ([id number])[facility] [place] ([facility])[address] Glucose [Mass/Vol] 108 mg/dL Normal 82-115 [facility] Comment on above: Performed By: #### L AB15 ####Utility Inspector: UNA ACRE ([id number])[facility] (SBHLAB)[address] Potassium [Moles/Vol] 4.1 mmol/L Normal 3.5-5.1 [facility] Comment on above: Result Comment: [facility] potassium values may be up to 0.5 mmol/L lower than serum values. Performed By: #### L AB15 ####Utility Inspector: UNA ARCE ([id number])[facility] ([facility])[address] Sodium [Moles/Vol] 137 mmol/L Normal 136-145 [facility] Comment on above: Performed By: #### L AB15 ####Utility Inspector: UNA ARCE ([id number])[facility] Urea nitrogen [Mass/Vol] 51 mg/dL High 9-23 [facility] Comment on above: Performed By: #### L AB15 ####Utility Inspector: UNA ARCE ([id number])[facility] BLOOD TYPE AND SCREEN GELon 06-21-2025 ABO GROUPING A Normal [facility] Comment on above: Performed By: #### L [id number] ####Utility Inspector: UNA ARCE ([id number])[facility] ([facility])[address] [place] [address] RH TYPE IN BLOOD Negative Normal [facility] Comment on above: Performed By: #### L [id number] ####Utility Inspector: UNA ARCE ([id number])[facility] ([facility])[address] [place] [address] Basic Metabolic Profile (BMP )on 06-21-2025 BUN/CRE 25.4 RATIO High 10-20 [facility] Comment on above: Order Comment: 212.1 Performed By: #### L 100.0500, L500.2500 #### [facility] [address] [place], [address] Calcium [Mass/Vol] 8.4 mg/dL Normal 7.6-11.0 [facility] Comment on above: Order Comment: 212.1 Performed By: #### L 100.0500, L500.2500 #### [facility] [address] [place], [address] Chloride [Moles/Vol] 97 mmol/L Low 98-108 [facility] Comment on above: Order Comment: 212.1 Performed By: #### L 100.0500, L500.2500 #### [facility] [address] [place], [address] CO2 [Moles/Vol] 29.6 mmol/L Normal 21.0-32.0 [facility] Comment on above: Order Comment: 212.1 Performed By: #### L 100.0500, L500.2500 #### [facility] [address] [place], [address] Creatinine [Mass/Vol] 1.86 mg/dL High 0.70-1.[address] [facility] Comment on above: Order Comment: 212.1 Performed By: #### L 100.0500, L500.2500 #### [facility] [address] [place], [address] GAP 10 Normal 5-15 [facility] Comment on above: Order Comment: 212.1 Performed By: #### L 100.0500, L500.2500 #### [facility] [address] [place], [address] GFR/1.73 sq M.predicted among non-blacks MDRD (S/P/Bld) [Vol rate/Area] 34 mL/min/{1.73_m2} Low >60 [facility] Comment on above: Order Comment: 212.1 Result Comment: mL/m in/1.73m2 CKD-EPI Creatinine Equation (2020) Performed By: #### L 100.0500, L500.2500 #### [facility] [address] [place], [address] Glucose [Mass/Vol] 93 mg/dL Normal 70-99 [facility] Comment on above: Order Comment: 212.1 Performed By: #### L 100.0500, L500.2500 #### [facility] [address] [place], [address] Potassium [Moles/Vol] 3.8 mmol/L Normal 3.3-5.[address] [facility] Comment on above: Order Comment: 212.1 Performed By: #### L 100.0500, L500.2500 #### [facility] [address] [place], [address] Sodium [Moles/Vol] 136 mmol/L Normal 133-145 [facility] Comment on above: Order Comment: 212.1 Performed By: #### L 100.0500, L500.2500 #### [facility] [address] [place], [address] Urea nitrogen [Mass/Vol] 47 mg/dL High 4-19 [facility] Comment on above: Order Comment: 212.1 Performed By: #### L 100.0500, L500.2500 #### [facility] [address] [place], [address] Basic metabolic 1998 panelon 06-21-2025 Anion gap [Moles/Vol] 15 mmol/L High 3 - 13 mmol/L [facility] [employer] Calcium [Mass/Vol] 8.4 mg/dL Low 8.8 - 10. 0 mg/dL [facility] [employer] Chloride [Moles/Vol] 97 mmol/L Low 98 - 10 7 mmol/L [facility] [employer] CO2 [Moles/Vol] 25 mmol/L 23 - 31 mmol/L [facility] [employer] Creatinine [Mass/Vol] 1.97 mg/dL High 0.72 - 1.25 mg/dL [facility] GFR/1.73 sq M.predicted (S/P/Bld) [Vol rate/Area] 31.9 mL/min Low - PINF [facility] Comment on above: Calculation based on the Chronic Kidney Disease Epidemiology Collaboration (CKD-EPI) equation refit without adjustment for race Glucose [Mass/Vol] 108 mg/dL 82 - 115 mg/dL [facility] Interpretation and review of laboratory results Abnormal [facility] Potassium [Moles/Vol] 4.1 mmol/L 3.5 - 5.1 mmol/L [facility] Comment on above: Plasma potassium traci ues may be up to 0.5 mmol/L lower than serum values. Sodium [Moles/Vol] 137 mmol/L 136 - 145 mmol/L [facility] Urea nitrogen [Mass/Vol] 51 mg/dL High 9 - 23 mg/d L [facility] Blood type and Crossmatch pa valente (Bld)on 06-21-2025 ABO group Nom (Bld) A [facility] Blood group antibody screen GEL Ql Negative [facility] D Ag Ql (RBC) Negative [facility]alt [facility] CBC W Auto Differential pane l (Bld)Ordered By: Sallie Powell on 06-21-2025 Erythrocyte distribution width (RBC) [Ratio] 16.7 % High 11.5 - 15.0 % [facility] Hematocrit (Bld) [Volume fraction] 23.3 % Low 40.0 - 52.0 % [facility] Hemoglobin (Bld) [Mass/Vol] 7.4 g/dL Low 13.0 - 18.0 g/dL [facility] Interpretation and review of laboratory results Abnormal [facility] MCH (RBC) [Entitic mass] 29 pg 26. 0 - 34.0 pg [facility] MCHC (RBC) [Mass/Vol] 31.8 % 30.5 - 36.0 % [facility] MCV (RBC) [Entitic vol] 91.4 fL 77.0 - 99.0 fL [facility] Platelet mean volume (Bld) [Entitic vol] 8.5 fL Low 9.0 - 12.7 fL [facility] Platelets (Bld) [#/Vol] 513 10*3/uL High 140 - 440 10*3/uL [facility] RBC (Bld) [#/Vol] 2.55 10*6/uL Low 4.40 - 5.9 0 10*6/uL [facility] WBC (Bld) [#/Vol] 16.8 10*3/uL High 3.6 - 10.7 10*3/uL [facility] CBC WITH AUTO DIFFERENTIALon 06-21-2025 Erythrocyte distribution width (RBC) [Ratio] 16.7 % High 11.5-15.0 [facility] Comment on above: Performed By: #### L [id number], [id number] ####Utility Inspector: UNA ARCE ([id number])[facility] ([facility])[address] Hematocrit (Bld) [Volume fraction] 23.3 % Low 40.0-52.0 [facility] Comment on above: Performed By: #### L [id number], [id number] ####Utility Inspector: UNA ARCE ([id number])[facility] ([facility])[address] Hemoglobin (Bld) [Mass/Vol] 7.4 g/dL Low 13.0-18.0 [facility] Comment on above: Performed By: #### L [id number], [id number] ####Utility Inspector: UNA ARCE ([id number])[facility] [place] ([facility])[address] MCH (RBC) [Entitic mass] 29.0 pg Normal 26.0-34.0 [facility] Comment on above: Performed By: #### L [id number], [id number] ####Utility Inspector: UNA ARCE ([id number])[facility] ([facility])[address] MCHC 31.8 % Normal 30.5-36.0 [facility] Comment on above: Performed By: #### L [id number], [id number] ####Utility Inspector: UNA ARCE ([id number])[facility] ([facility])[address] MCV (RBC) [Entitic vol] 91.4 fL Normal 77.0-99.0 [facility] Comment on above: Performed By: #### L [id number], [id number] ####Utility Inspector: UNA ARCE ([id number])[facility] (SBHLAB)[address] Platelet mean volume (Bld) [Entitic vol] 8.5 fL Low 9.0-12.7 [facility] Comment on above: Performed By: #### L [id number], [id number] ####Utility Inspector: UNA ARCE ([id number])[facility] (SB[facility]AB)[address] Platelets (Bld) [#/Vol] 513 10*3/uL High 140-440 [facility] Comment on above: Performed By: #### L [id number], [id number] ####Utility Inspector: UNA ARCE ([id number])[facility] (SBHLAB)[address] RBC (Bld) [#/Vol] 2.55 10*6/uL Low 4.40-5.90 [facility] Comment on above: Performed By: #### L [id number], [id number] ####Utility Inspector: UNA ARCE ([id number])[facility] (SB[facility]AB)[address] WBC (Bld) [#/Vol] 16.8 10*3/uL High 3.6-10.7 [facility] Comment on above: Performed By: #### L [id number], [id number] ####Utility Inspector: UNA ARCE ([id number])[facility] ([facility])[address] CBC-Complete Blood Cnt No Di ffon 06-21-2025 Erythrocyte distribution width (RBC) [Ratio] 16.8 % High 11.6-14.6 [facility] Comment on above: Order Comment: 212.1 Performed By: #### L 100.0500, L500.2500 #### [facility] [address] [place], [address] Hematocrit (Bld) [Volume fraction] 21.5 % Low 40-54 [facility] Comment on above: Order Comment: 212.1 Performed By: #### L 100.0500, L500.2500 #### [facility] [address] [place], [address] Hemoglobin (Bld) [Mass/Vol] 6.9 g/dL Low 13.0-16.5 [facility] Comment on above: Order Comment: 212.1 Performed By: #### L 100.0500, L500.2500 #### [facility] [address] [place], [address] MCH (RBC) [Entitic mass] 28.8 pg Normal 27.0-32.0 [facility] Comment on above: Order Comment: 212.1 Performed By: #### L 100.0500, L500.2500 #### [facility] [address] [place], [address] MCHC (RBC) [Mass/Vol] 32.1 g/dL Normal 32-[address] [facility] Comment on above: Order Comment: 212.1 Performed By: #### L 100.0500, L500.2500 #### [facility] [address] [place], [address] MCV (RBC) [Entitic vol] 89.6 fL Normal 80-94 [facility] Comment on above: Order Comment: 212.1 Performed By: #### L 100.0500, L500.2500 #### [facility] [address] [place], [address] Platelet mean volume (Bld) [Entitic vol] 8.7 fL Normal 6.2-12.0 [facility] Comment on above: Order Comment: 212.1 Performed By: #### L 100.0500, L500.2500 #### [facility] [address] [place], [address] Platelets (Bld) [#/Vol] 457 10*3/uL High 150-450 [facility] Comment on above: Order Comment: 212.1 Performed By: #### L 100.0500, L500.2500 #### [facility] [address] [place], [address] RBC (Bld) [#/Vol] 2.40 10*6/uL Low 4.6-6.2 [facility] Comment on above: Order Comment: 212.1 Performed By: #### L 100.0500, L500.2500 #### [facility] [address] [place], [address] RDW SD 55.8 fl High 35.1-43.9 [facility] Comment on above: Order Comment: 212.1 Performed By: #### L 100.0500, L500.2500 #### [facility] [address] [place], [address] WBC (Bld) [#/Vol] 14.3 10*3/uL High 4.4-11.0 [facility] Comment on above: Order Comment: 212.1 Performed By: #### L 100.0500, L500.2500 #### [facility] [address] [place], [address] ECG 12-LEADon 06-21-2025 ECG 12-LEAD IMPRESSION: Sinus rhythm Atrial premature complexes Left anterior fascicular block Similar to prior on 04/13/25 Electronically Signed On 06-21-2025 23:12:12 EDT by Sagar Gilliam [facility] ED Nursing Noteon 06-21-2025 ED Nursing Note This RN at bedside for first 15 minutes of blood transfusion. Pt tolerating transfusion. VS updated in system. [facility] ED Nursing Note Patient arrives via EMS from [facility] following bloodwork that showed low hemoglobin. No overt signs of bleeding on arrival. Patient A&O4. Patient does endorse previous blood transfusions. Normal [facility] ED Provider Noteon ED Provider Note Normal [facility] Laboratory - Hematology and Cell countson 06-21-2025 Eosinophils (Bld) [#/Vol] 0.3 10*3/uL 0.0 - 0.5 10*3/uL [facility] Eosinophils/100 WBC (Bld) 2 % 0 - 6 % [facility] Giant platelets LM Ql (Bld) Rare Abnormal (none) [facility] Hypochromia Ql (Bld) Slight Abnormal (none) [facility] Lymphocytes (Bld) [#/Vol] 4 10*3/uL 1.0 - 4.3 10*3/uL [facility] Lymphocytes/100 WBC (Bld) 24 % 15 - 45 % [facility] Monocytes (Bld) [#/Vol] 1.2 10*3/uL High 0.0 - 0.9 10*3/uL [facility] Monocytes/100 WBC (Bld) 7 % 5 - 13 % [facility] Neutrophils (Bld) [#/Vol] 11.3 10*3/uL High 1.8 - 7.5 10*3/uL [facility] Ovalocytes LM Ql (Bld) Rare Abnormal (none) [facility] RBC morphology finding Nom (Bld) abnormal [facility] Segmented neutrophils/100 WBC (Bld) 67 % 38 - 82 % [facility] MANUAL DIFFERENTIAL (CELLAVI BANDAR)on 06-21-2025 BAND NEUTROPHILS TOTAL PER COUNTED LEUKOCYTES BY MANUAL COUNT Normal [facility] Comment on above: Performed By: #### L [id number], [id number] ####Utility Inspector: UNA ARCE ([id number])[facility] ([facility])[address] [place] [address] BASOPHILS TOTAL PER COUNTED LEUKOCYTES BY MANUAL COUNT Normal [facility] Comment on above: Performed By: #### L [id number], [id number] ####Utility Inspector: UNA ARCE ([id number])[facility] ([facility])[address] [place] [address] [place] BLASTS TOTAL PER COUNTED LEUKOCYTES BY MANUAL COUNT Normal [facility] Comment on above: Performed By: #### L [id number], [id number] ####Utility Inspector: UNA ARCE ([id number])[facility] ([facility])[address] [place] [address] [place] EOSINOPHILS (10*3/UL) IN BLOOD-CELLAVISION 0.3 10*3/uL Normal 0.0-0.5 [facility] Comment on above: Performed By: #### L [id number], [id number] ####Utility Inspector: UNA ARCE ([id number])[facility] ([facility])[address] [place] [address] [place] EOSINOPHILS TOTAL PER COUNTED LEUKOCYTES BY MANUAL COUNT 2 High 0-1 [facility] Comment on above: Performed By: #### L [id number], [id number] ####Utility Inspector: UNA ARCE ([id number])[facility] ([facility])[address] [place] [address] [place] EOSINOPHILS/100 LEUKOCYTES IN BLOOD-CELLAVISION 2 % Normal 0-6 [facility] Comment on above: Performed By: #### L [id number], [id number] ####Utility Inspector: UNA ARCE ([id number])[facility] ([facility] [place] [address] [place] HYPOCHROMIA (PRESENCE) IN BLOOD BY LIGHT MICROSCOPY Slight Abnormal (none) [facility] Comment on above: Performed By: #### L [id number], [id number] ####Utility Inspector: UNA ARCE ([id number])[facility] ([facility] [place] [address] [place] LYMPHOCYTES (10*3/UL) IN BLOOD-CELLAVISION 4.0 10*3/uL Normal 1.0-4.3 [facility] Comment on above: Performed By: #### L [id number], [id number] ####Utility Inspector: UNA [id number])[facility] ([facility])[address] [place] [address] [place] LYMPHOCYTES TOTAL PER COUNTED LEUKOCYTES BY MANUAL COUNT 24 Normal [facility] Comment on above: Performed By: #### L [id number], [id number] ####Utility Inspector: UNA ARCE ([id number])[facility] ([facility])[address] [place] [address] [place] LYMPHOCYTES/100 LEUKOCYTES IN BLOOD-CELLAVISION 24 % Normal 15-45 [facility] Comment on above: Performed By: #### L [id number], [id number] ####Utility Inspector: UNA ARCE ([id number])[facility] [place] ([facility])[address] [place] [address] [place] METAMYELOCYTES TOTAL PER COUNTED LEUKOCYTES BY MANUAL COUNT Normal [facility] Comment on above: Performed By: #### L [id number], [id number] ####Utility Inspector: UNA ARCE ([id number])[facility] [place] ([facility])[address] [place] [address] [place] MONOCYTES (10*3/UL) IN BLOOD-CELLAVISION 1.2 10*3/uL High 0.0-0.9 [facility] Comment on above: Performed By: #### L [id number], [id number] ####Utility Inspector: UNA ARCE ([id number])[facility] [place] ([facility])[address] [place] [address] [place] MONOCYTES TOTAL PER COUNTED LEUKOCYTES BY MANUAL COUNT 7 Normal [facility] Comment on above: Performed By: #### L [id number], [id number] ####Utility Inspector: UNA ARCE ([id number])[facility] [place] ([facility])[address] [place] [address] [place] MONOCYTES/100 LEUKOCYTES IN BLOOD-LUCIANA 7 % Normal 5-13 [facility] Comment on above: Performed By: #### L [id number], [id number] ####Utility Inspector: UNA ARCE ([id number])[facility] ([facility])[address] [place] [address] [place] MYELOCYTES COUNTED BY MANUAL COUNT Normal [facility] Comment on above: Performed By: #### L [id number], [id number] ####Utility Inspector: UNA STAUFFERMELANIE ([id number])[facility] ([facility])[address] [place] [address] [place] NEUTROPHILS TOTAL PER COUNTED LEUKOCYTES BY MANUAL COUNT 67 Normal [facility] Comment on above: Performed By: #### L [id number], [id number] ####Utility Inspector: UNA BERMUDEZPEDRO ([id number])[facility] [place] ([facility])[address] [place] [address] [place] OVALOCYTES PRESENCE IN BLOOD BY LIGHT MICROSCOPY Rare Abnormal (none) [facility] Comment on above: Performed By: #### L [id number], [id number] ####Utility Inspector: UNA ARCE ([id number])[facility] [place] ([facility])[address] [place] [address] [place] PLATELETS GIANT PRESENCE IN BLOOD BY LIGHT MICROSCOPY Rare Abnormal (none) [facility] Comment on above: Performed By: #### L [id number], [id number] ####Utility Inspector: UNA ARCE ([id number])[facility] [place] ([facility])[address] [place] [address] [place] PROMYELOCYTES TOTAL PER COUNTED LEUKOCYTES BY MANUAL COUNT Normal [facility] Comment on above: Performed By: #### L [id number], [id number] ####Utility Inspector: UNA ARCE ([id number])[facility] [place] ([facility])[address] [place] [address] [place] RBC MORPHOLOGY IN BLOOD abnormal Normal [facility] Comment on above: Performed By: #### L [id number], [id number] ####Utility Inspector: UNA ARCE ([id number])[facility] [place] ([facility])[address] [place] [address] [place] SEGMENTED NEUTROPHILS (10*3/UL) IN BLOOD-CELLAVISION 11.3 10*3/uL High 1.8-7.5 [facility] Comment on above: Performed By: #### L [id number], [id number] ####Utility Inspector: UNA STAUFFERMELANIE ([id number])[facility] ([facility])[address] SEGMENTED NEUTROPHILS/100 LEUKOCYTES-CE 67 % Normal 38-82 [facility] Comment on above: Performed By: #### L [id number], [id number] ####Utility Inspector: UNA BERMUDEZPEDRO ([id number])[facility] [place] ([facility])[address] UNCLASSIFIED CELLS TOTAL PER COUNTED LEUKOCYTES BY MANUAL COUNT [facility] Comment on above: Performed By: #### L [id number], [id number] ####Utility Inspector: UNA STAUFFERMELANIE ([id number])[facility] [place] ([facility])[address] VARIANT LYMPHOCYTES TOTAL PER COUNTED LEUKOCYTES BY MANUAL COUNT [facility] Comment on above: Performed By: #### L [id number], [id number] ####Utility Inspector: UNA BERMUDEZPEDRO ([id number])[facility] [place] ([facility])[address] No Panel Informationon 06-21 P Douglas 17 degrees [facility] PA Interval 189 ms [facility] QRS Douglas -50 degrees [facility] QRSD Interval 116 ms [facility] Interval 434 ms [facility] QTC Interval 436 ms [facility] T Wave [place] 37 degrees [facility] Sinus rhythm Atrial premature complexes Left anterior fascicular block Similar to prior on 04/13/25 Electronically Signed On 06-21-2025 23:12:12 EDT by Sagar Posey, - 06/21/2025 IMPRESSION: Sinus rhythm Atrial premature complexes Left anterior fascicular block Similar to prior on 04/13/25 Electronically Signed On 06-21-2025 23:12:12 EDT by Sagar Gilliam [facility] Blood Expiration Date [id number] [facility] Crossmatch interpretation COMP [facility] Dispense Status Transfused [facility] lt Product Blood Type 600 [facility] PRODUCT CODE [id number] [facility] Unit ABO A [facility] Unit Number [id number] [facility] RH Negative [facility] Unit Volume 300 mL [facility] Atypical Lymphocytes Manual [facility] Bands Manual [facility] Basophils Manual [facility] alth Blasts Manual [facility] Healt h Eosinophils Manual 2 High 0 - 1 [facility] Interpretation and review of laboratory results Abnormal [facility] Lymphocytes Manual 24 [facility] Metamyelocytes Manual [facility] Monocytes Manual 7 [facility] alth Myelocytes Manual [facility] ealt Neutrophils Manual 67 [facility] Promyelocytes Manual [facility] Unclassified Cells, Manual [facility] Vital signson 06-21-2025 Heart rate 63 /min bpm [facility] Health 36on 06-18-2025 36 Noted; thank you. Normal [facility] ealt System [facility] 36on 06-17-2025 36 Normal [facility] 36 Normal [facility] BASIC METABOLIC PANELon Anion gap [Moles/Vol] 13 mmol/L Normal 3-13 [facility] Comment on above: Performed By: #### L [id number] ####Utility Inspector: ANAHY AVILA ([id number])[facility] [place] ([facility])[address] [place] [address] [place] Calcium [Mass/Vol] 9.2 mg/dL Normal 8.8-10.0 [facility] Comment on above: Performed By: #### L [id number] ####Utility Inspector: ANAHY AVILA ([id number])[facility] [place] ([facility])[address] [place] [address] [place] Chloride [Moles/Vol] 98 mmol/L Normal 98-107 [facility] Comment on above: Performed By: #### L [id number] ####Utility Inspector: ANAHY AVILA ([id number])[facility] [place] ([facility])[address] [place] [address] [place] CO2 [Moles/Vol] 29 mmol/L Normal 23-31 [facility] Comment on above: Performed By: #### L [id number] ####Utility Inspector: ANAHY AVILA ([id number])[facility] [place] ([facility])[address] [place] [address] [place] Creatinine [Mass/Vol] 2.05 mg/dL High 0.72-1.25 [facility] Comment on above: Performed By: #### L [id number] ####Utility Inspector: ANAHY AVILA ([id number])[facility] [place] ([facility])[address] [place] [address] [place] GLOMERULAR FILTRATION RATE ML/MIN/1.73 SQ M.PREDICTED 30.4 mL/min/1.73m*2 Low >60.0 [facility] Comment on above: Result Comment: Calc ulation based on the Chronic Kidney Disease Epidemiology Collaboration (CKD-EPI) equation refit without adjustment for race Performed By: #### L [id number] ####Utility Inspector: ANAHY AVILA ([id number])[facility] [place] ([facility])[address] [place] [address] [place] Glucose [Mass/Vol] 109 mg/dL Normal 82-115 [facility] Comment on above: Performed By: #### L [id number] ####Utility Inspector: ANAHY AVILA ([id number])[facility] [place] ([facility])[address] [place] [address] [place] Potassium [Moles/Vol] 4.3 mmol/L Normal 3.5-5.1 [facility] Comment on above: Result Comment: [facility] potassium values may be up to 0.5 mmol/L lower than serum values. Performed By: #### L [id number] ####Utility Inspector: ANAHY AVILA ([id number])[facility] [place] ([facility])[address] [place] [address] [place] Sodium [Moles/Vol] 140 mmol/L Normal 136-145 [facility] Comment on above: Performed By: #### L [id number] ####Utility Inspector: ANAHY AVILA ([id number])[facility] SID ([facility])[address] Urea nitrogen [Mass/Vol] 54 mg/dL High 9-23 [facility] Comment on above: Performed By: #### L [id number] ####Utility Inspector: ANAHY AVILA ([id number])[facility] SID ([facility])[address] Basic metabolic 1998 panelon 06-17-2025 Anion gap [Moles/Vol] 13 mmol/L 3 - 13 mmol/L [facility] Calcium [Mass/Vol] 9.2 mg/dL 8.8 - 10. 0 mg/dL [facility] Chloride [Moles/Vol] 98 mmol/L 98 - 10 7 mmol/L [facility] CO2 [Moles/Vol] 29 mmol/L 23 - 31 mmol/L [facility] Creatinine [Mass/Vol] 2.05 mg/dL High 0.72 - 1.25 mg/dL [facility] GFR/1.73 sq M.predicted (S/P/Bld) [Vol rate/Area] 30.4 mL/min Low - PINF [facility] Comment on above: Calculation based on the Chronic Kidney Disease Epidemiology Collaboration (CKD-EPI) equation refit without adjustment for race Glucose [Mass/Vol] 109 mg/dL 82 - 115 mg/dL [facility] Interpretation and review of laboratory results Abnormal [facility] Potassium [Moles/Vol] 4.3 mmol/L 3.5 - 5.1 mmol/L [facility] Comment on above: Plasma potassium traci ues may be up to 0.5 mmol/L lower than serum values. Sodium [Moles/Vol] 140 mmol/L 136 - 145 mmol/L [facility] Urea nitrogen [Mass/Vol] 54 mg/dL High 9 - 23 mg/d L [facility] CBC W Auto Differential pane l (Bld)Ordered By: Jessica Maldonado on 06-17-2025 Basophils (Bld) [#/Vol] 0.1 10*3/uL 0.0 - 0.2 10*3/uL [facility] Basophils/100 WBC (Bld) 0.7 % 0.0 - 2.0 % [facility] Eosinophils (Bld) [#/Vol] 0.4 10*3/uL 0.0 - 0.5 10*3/uL [facility] Eosinophils/100 WBC (Bld) 2.2 % 0.0 - 6.0 % [facility] Erythrocyte distribution width (RBC) [Ratio] 17.2 % High 11.5 - 15.0 % [facility] Hematocrit (Bld) [Volume fraction] 25.7 % Low 40.0 - 52.0 % [facility] Hemoglobin (Bld) [Mass/Vol] 8.2 g/dL Low 13.0 - 18.0 g/dL [facility] Immature granulocytes (Bld) [#/Vol] 0.2 10*3/uL High NINF - 0.1 10*3/uL [facility] Immature granulocytes/100 WBC (Bld) 1 % 0.0 - 2.0 % [facility] Interpretation and review of laboratory results Abnormal [facility] Lymphocytes (Bld) [#/Vol] 2.9 10*3/uL 1.0 - 4.3 10*3/uL [facility] Lymphocytes/100 WBC (Bld) 17.2 % 15.0 - 45.0 % [facility] MCH (RBC) [Entitic mass] 29.1 pg 26. 0 - 34.0 pg [facility] MCHC (RBC) [Mass/Vol] 31.9 % 30.5 - 36.0 % [facility] MCV (RBC) [Entitic vol] 91.1 fL 77.0 - 99.0 fL [facility] Monocytes (Bld) [#/Vol] 1.5 10*3/uL High 0.0 - 0.9 10*3/uL [facility] Monocytes/100 WBC (Bld) 9.1 % 5.0 - 13.0 % [facility] Neutrophils (Bld) [#/Vol] 11.5 10*3/uL High 1.8 - 7.5 10*3/uL [facility] Neutrophils/100 WBC (Bld) 69.8 % 38.0 - 82.0 % [facility] Nucleated RBC/100 WBC (Bld) [Ratio] 0 % [facility] Platelet mean volume (Bld) [Entitic vol] 8.7 fL Low 9.0 - 12.7 fL [facility] Comment on above: MPV is a calculated measurement using platelet volume ratio Platelets (Bld) [#/Vol] 517 10*3/uL High 140 - 440 10*3/uL [facility] RBC (Bld) [#/Vol] 2.82 10*6/uL Low 4.40 - 5.9 0 10*6/uL [facility] WBC (Bld) [#/Vol] 16.5 10*3/uL High 3.6 - 10.7 10*3/uL [facility] Moderate Anisocytosi s Slight Hypochromia [facility] CBC WITH AUTO DIFFERENTIALon 06-17-2025 Basophils (Bld) [#/Vol] 0.1 10*3/uL Normal 0.0-0.2 [facility] Comment on above: Performed By: #### L [id number] ####Utility Inspector: ANAHY AVILA ([id number])[facility] ([facility])[address] [place] [address] [place] Basophils/100 WBC (Bld) 0.7 % Normal 0.0-2.0 [facility] Comment on above: Performed By: #### L [id number] ####Utility Inspector: ANAHY AVILA ([id number])[facility] [place] ([facility])[address] [place] [address] [place] Eosinophils (Bld) [#/Vol] 0.4 10*3/uL Normal 0.0-0.5 [facility] Comment on above: Performed By: #### L [id number] ####Utility Inspector: ANAHY AVILA ([id number])[facility] [place] ([facility])[address] [place] [address] [place] Eosinophils/100 WBC (Bld) 2.2 % Normal 0.0-6.0 [facility] Comment on above: Performed By: #### L [id number] ####Utility Inspector: ANAHY AVILA ([id number])[facility] ([facility])[address] [place] [address] Erythrocyte distribution width (RBC) [Ratio] 17.2 % High 11.5-15.0 [facility] Comment on above: Performed By: #### L [id number] ####Utility Inspector: ANAHY AVILA ([id number])[facility]NETTE [facility] [place] ([facility])[address] [place] [address] Hematocrit (Bld) [Volume fraction] 25.7 % Low 40.0-52.0 [facility] Comment on above: Performed By: #### L [id number] ####Utility Inspector: ANAHY AVILA ([id number])[facility] [place] ([facility])[address] [place] [address] Hemoglobin (Bld) [Mass/Vol] 8.2 g/dL Low 13.0-18.0 [facility] Comment on above: Performed By: #### L [id number] ####Utility Inspector: ANAHY AVILA ([id number])[facility] [place] ([facility])[address] [place] [address] IMMATURE GRANS % 1.0 % Normal 0.0-2.0 [facility] Comment on above: Performed By: #### L [id number] ####Utility Inspector: ANAHY AVILA ([id number])[facility] [place] ([facility])[address] [place] [address] IMMATURE GRANS ABSOLUTE 0.2 10*3/uL High <0.1 [facility] Comment on above: Result Comment: ORDE R COMMENTS:Moderate AnisocytosisSlight Hypochromia Performed By: #### L [id number] ####Utility Inspector: ANAHY AVILA ([id number])[facility] [place] ([facility])[address] [place] [address] Lymphocytes (Bld) [#/Vol] 2.9 10*3/uL Normal 1.0-4.3 [facility] Comment on above: Performed By: #### L [id number] ####Utility Inspector: ANAHY AVILA ([id number])[facility]TE [facility] [place] ([facility])[address] [place] [address] [place] Lymphocytes/100 WBC (Bld) 17.2 % Normal 15.0-45.0 [facility] Comment on above: Performed By: #### L [id number] ####Utility Inspector: ANAHY AVILA ([id number])[facility] [place] ([facility])[address] [place] [address] MCH (RBC) [Entitic mass] 29.1 pg Normal 26.0-34.0 [facility] Comment on above: Performed By: #### L [id number] ####Utility Inspector: ANAHY AVILA ([id number])[facility] [place] ([facility])[address] [place] [address] MCHC 31.9 % Normal 30.5-36.0 [facility] Comment on above: Performed By: #### L [id number] ####Utility Inspector: ANAHY AVILA ([id number])[facility] [place] ([facility])[address] [place] [address] [place] MCV (RBC) [Entitic vol] 91.1 fL Normal 77.0-99.0 [facility] Comment on above: Performed By: #### L [id number] ####Utility Inspector: ANAHY AVILA ([id number])[facility] [place] ([facility])[address] [place] [address] [place] Monocytes (Bld) [#/Vol] 1.5 10*3/uL High 0.0-0.9 [facility] Comment on above: Performed By: #### L [id number] ####Utility Inspector: ANAHY AVILA ([id number])LYNETTE [facility] [place] ([facility])[address] [place] [address] [place] Monocytes/100 WBC (Bld) 9.1 % Normal 5.0-13.0 [facility] Comment on above: Performed By: #### L [id number] ####Utility Inspector: ANAHY AVILA ([id number])[facility]NETTE [facility] [place] ([facility])[address] [place] [address] NEUTROPHILS ABSOLUTE 11.5 10*3/uL High 1.8-7.5 [facility] Comment on above: Performed By: #### L [id number] ####Utility Inspector: ANAHY AVILA ([id number])[facility] [place] ([facility])[address] [place] [address] Neutrophils/100 WBC (Bld) 69.8 % Normal 38.0-82.0 [facility] Comment on above: Performed By: #### L [id number] ####Utility Inspector: ANAHY AVILA ([id number])[facility] ([facility])[address] [place] [address] NRBC 0.0 /100 WBCs Normal 0.0-2.0 [facility] Comment on above: Performed By: #### L [id number] ####Utility Inspector: ANAHY AVILA ([id number])[facility] [place] ([facility])[address] [place] [address] Platelet mean volume (Bld) [Entitic vol] 8.7 fL Low 9.0-12.7 [facility] Comment on above: Result Comment: MPV is a calculated measurement using platelet volume ratio Performed By: #### L [id number] ####Utility Inspector: ANAHY AVILA ([id number])[facility] [place] ([facility])[address] [place] [address] Platelets (Bld) [#/Vol] 517 10*3/uL High 140-440 [facility] Comment on above: Performed By: #### L [id number] ####Utility Inspector: ANAHY AVILA ([id number])[facility] [place] ([facility])[address] [place] [address] RBC (Bld) [#/Vol] 2.82 10*6/uL Low 4.40-5.90 [facility] Comment on above: Performed By: #### L [id number] ####Utility Inspector: ANAHY AVILA ([id number])[facility] [place] (SWRL[facility])[address] WBC (Bld) [#/Vol] 16.5 10*3/uL High 3.6-10.7 [facility] Comment on above: Performed By: #### L [id number] ####Utility Inspector: ANAHY AVILA ([id number])[facility] [place] (SWRLAB)[address] Progress Noteon 06-17-2025 Progress [facility] Progress Note [facility] Progress Noteon 06-02-2025 Progress Note Normal [facility] Progress Noteon 05-19-2025 Progress Note Normal [facility] Progress Noteon 05-11-2025 Progress Note Normal [facility] Progress Noteon 05-06-2025 Progress Note Normal [facility] Progress Noteon 05-04-2025 Progress Note Normal [facility] Progress Noteon 05-03-2025 Progress Note [facility] Progress Note CT abdomen with mura l thickening involving the cecum and terminal ileum concern for neoplasm versus inflammation. Seen by GI with plan for EGD and colonoscopy once stable. -GI follow-up Normal [facility] Progress Note Noted to have irregular heart rhythm during hospitalization and multiple EKGs show sinus rhythm with frequent PACs. -Continue Toprol 25 mg p.o. daily Normal [facility] Progress Note Normal [facility] Progress Note Creatinine 1.46 on admission. Peak creatinine 1.78. Most recent creatinine 1.8 per labs 04/26/2025 - Continue to monitor - may have to accept a higher creatinine to keep him out of HF Normal [facility] Progress Note Bedside thoracentesi s 04/09/2025 with 1 L removed from the left and 600 mL removed from the right. Repeat left thoracentesis 04/14/2025 with 600 mL removed. 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 NO angina. - no ASA 2/2 anemia - continue Toprol 25 mg po daily - continue atorvastatin 20 mg po daily - not a candidate or invasive workup due to anemia, advanced age and frailty Normal [facility] Progress Note Normal [facility] Progress Noteon 04-27-2025 Progress Note Normal [facility] Progress Noteon 04-20-2025 Progress Note Normal [facility] Progress Noteon 04-19-2025 Progress Note Normal [facility] [id number] 04-18-2025 [id number] Normal [facility] [id number] 04-17-2025 [id number] Normal [facility] [id number] Residential/SNF - [facility] [place] Member [address] [place] [address] [phone] Patient/Family Choice Normal [facility] [id number] Normal [facility] CBC W Auto Differential pane l (Bld)on 04-17-2025 Erythrocyte distribution width (RBC) [Ratio] 25.7 % High 11.5 - 15.0 % [facility] Hematocrit (Bld) [Volume fraction] 27.9 % Low 40.0 - 52.0 % [facility] Hemoglobin (Bld) [Mass/Vol] 7.9 g/dL Low 13.0 - 18.0 g/dL [facility] MCH (RBC) [Entitic mass] 23.8 pg Low 26. 0 - 34.0 pg [facility] MCHC (RBC) [Mass/Vol] 28.3 % Low 30.5 - 36.0 % [facility] MCV (RBC) [Entitic vol] 84 fL 77.0 - 99.0 fL [facility] Platelet mean volume (Bld) [Entitic vol] 9 fL 9.0 - 12.7 fL [facility] Platelets (Bld) [#/Vol] 419 10*3/uL 140 - 440 10*3/uL [facility] RBC (Bld) [#/Vol] 3.32 10*6/uL Low 4.40 - 5.9 0 10*6/uL [facility] WBC (Bld) [#/Vol] 12 10*3/uL High 3.6 - 10.7 10*3/uL [facility] CBC WITH AUTO DIFFERENTIALon 04-17-2025 Erythrocyte distribution width (RBC) [Ratio] 25.7 % High 11.5-15.0 [facility] Comment on above: Performed By: #### L [id number], [id number] ####Utility Inspector: UNA ARCE ([id number])[facility] (SBHLAB)[address] Hematocrit (Bld) [Volume fraction] 27.9 % Low 40.0-52.0 [facility] Comment on above: Performed By: #### L [id number], [id number] ####Utility Inspector: UNA ARCE ([id number])[facility] (SBHLAB)[address] [place] [address] Hemoglobin (Bld) [Mass/Vol] 7.9 g/dL Low 13.0-18.0 [facility] Comment on above: Performed By: #### Gilbert [id number], [id number] ####Utility Inspector: UNA ARCE ([id number])[facility] (SBHLAB)[address] [place] [address] MCH (RBC) [Entitic mass] 23.8 pg Low 26.0-34.0 [facility] Comment on above: Performed By: #### L [id number], [id number] ####Utility Inspector: UNA ARCE ([id number])[facility] (SBHLAB)[address] MCHC 28.3 % Low 30.5-36.0 [facility] Comment on above: Performed By: #### L [id number], [id number] ####Utility Inspector: UNA ARCE ([id number])[facility] (SBHLAB)[address] MCV (RBC) [Entitic vol] 84.0 fL Normal 77.0-99.0 [facility] Comment on above: Performed By: #### L CL8797, [id number] ####Utility Inspector: UNA ARCE ([id number])LYNETTE ESCOTO (SBHLAB)[address] Platelet mean volume (Bld) [Entitic vol] 9.0 fL Normal 9.0-12.7 [facility] Comment on above: Performed By: #### L [id number], [id number] ####Utility Inspector: UNA ARCE ([id number])[facility]ITALnAg[facility]ALSN (SBHLAB)[address] Platelets (Bld) [#/Vol] 419 10*3/uL Normal 140-440 [facility] Comment on above: Performed By: #### L [id number], [id number] ####Utility Inspector: UNA ARCE ([id number])[facility]OSPITALAngel SANCHEZUNIVERSITY OF NEW MEX[facility] HOSPITALSN (SBHLAB)[address] [place] [address] RBC (Bld) [#/Vol] 3.32 10*6/uL Low 4.40-5.90 [facility] Comment on above: Performed By: #### L [id number], [id number] ####Utility Inspector: UNA ARCE ([id number])[facility] HOSPITALAngel [facility] (SBHLAB)[address] [place] [address] WBC (Bld) [#/Vol] 12.0 10*3/uL High 3.6-10.7 [facility] Comment on above: Performed By: #### L [id number], [id number] ####Utility Inspector: UNA ARCE ([id number])[facility]OSPITALAngel [facility] (SBHLAB)[address] COMPREHENSIVE METABOLIC PANE Anant 04-17-2025 Albumin [Mass/Vol] 2.1 g/dL Low 3.4-4.8 [facility] Comment on above: Performed By: #### L AB103, LAB17 ####Utility Inspector: UNA ARCE ([id number])[facility] (SBHLAB)[address] ALP [Catalytic activity/Vol] 49 U/L Normal 40-150 [facility] Comment on above: Performed By: #### L AB103, LAB17 ####Utility Inspector: UNA ARCE ([id number])[facility] [place] (SBHLAB)[address] [place] [address] [place] ALT [Catalytic activity/Vol] U/L Normal <40 [facility] Comment on above: Performed By: #### L AB103, LAB17 ####Utility Inspector: UNA ARCE ([id number])[facility] [place] (SBHLAB)[address] Anion gap [Moles/Vol] 10 mmol/L Normal 3-13 [facility] Comment on above: Performed By: #### L AB103, LAB17 ####Utility Inspector: UNA ARCE ([id number])[facility] [place] (SBHLAB)[address] AST [Catalytic activity/Vol] 22 U/L Normal <34 [facility] Comment on above: Performed By: #### L AB103, LAB17 ####Utility Inspector: UNA ARCE ([id number])[facility] [place] (SBHLAB)[address] [place] [address] [place] Bilirubin [Mass/Vol] 0.5 mg/dL Normal <1.2 [facility] Comment on above: Performed By: #### L AB103, LAB17 ####Utility Inspector: UNA ARCE ([id number])[facility] [place] (SBHLAB)[address] [place] [address] [place] Calcium [Mass/Vol] 8.4 mg/dL Low 8.8-10.0 [facility] Comment on above: Performed By: #### L AB103, LAB17 ####Utility Inspector: UNA ARCE ([id number])LYNETTE BASHIRN (SBHLAB)[address] Chloride [Moles/Vol] 88 mmol/L Low 98-107 [facility] Comment on above: Performed By: #### L AB103, LAB17 ####Utility Inspector: UNA ARCE ([id number])[facility] HOSPITALAngel [facility] (SBHLAB)[address] CO2 [Moles/Vol] 40 mmol/L High 23-31 [facility] Comment on above: Performed By: #### L AB103, LAB17 ####Utility Inspector: UNA ARCE ([id number])[facility] (HLAB)[address] Creatinine [Mass/Vol] 1.67 mg/dL High 0.72-1.25 [facility] Comment on above: Performed By: #### L DERICK, LAB17 ####Utility Inspector: UNA ARCE ([id number])[facility] (HLAB)[address] GLOMERULAR FILTRATION RATE ML/MIN/1.73 SQ M.PREDICTED 38.9 mL/min/1.73m*2 Low >60.0 [facility] Comment on above: Result Comment: Calc ulation based on the Chronic Kidney Disease Epidemiology Collaboration (CKD-EPI) equation refit without adjustment for race Performed By: #### L 103, LAB17 ####Utility Inspector: UNA ARCE ([id number])[facility] (SBHLAB)[address] [place] [address] [place] Glucose [Mass/Vol] 94 mg/dL Normal 82-115 [facility] Comment on above: Performed By: #### L AB103, LAB17 ####Utility Inspector: UNA ARCE ([id number])[facility] (HLAB)[address] Potassium [Moles/Vol] 3.6 mmol/L Normal 3.5-5.1 [facility] Comment on above: Result Comment: Plas ma potassium values may be up to 0.5 mmol/L lower than serum values. Performed By: #### L AB103, LAB17 ####Utility Inspector: UNA ARCE ([id number])[facility] [place] (SBHLAB)[address] Protein [Mass/Vol] 5.8 g/dL Low 6.4-8.3 [facility] Comment on above: Performed By: #### L AB103, LAB17 ####Utility Inspector: UNA ARCE ([id number])[facility] [place] (SBHLAB)[address] Sodium [Moles/Vol] 138 mmol/L Normal 136-145 [facility] Comment on above: Performed By: #### L AB103, LAB17 ####Utility Inspector: UNA ARCE ([id number])[facility]ITALA [facility] (SBHLAB)[address] Urea nitrogen [Mass/Vol] 46 mg/dL High 9-23 [facility] Comment on above: Performed By: #### L AB103, LAB17 ####Utility Inspector: UNA ARCE ([id number])[facility]ITALA [facility] (SBHLAB)[address] Comprehensive metabolic 1998 panelon 04-17-2025 Albumin [Mass/Vol] 2.1 g/dL Low 3.4 - 4.8 g/dL [facility] ALP [Catalytic activity/Vol] 49 U/L 40 - 150 U/L [facility] ALT [Catalytic activity/Vol] U/L NINF - 40 U/L [facility] Anion gap [Moles/Vol] 10 mmol/L 3 - 13 mmol/L [facility] AST [Catalytic activity/Vol] 22 U/L NINF - 34 U/L [facility] Bilirubin [Mass/Vol] 0.5 mg/dL NINF - 1.2 mg/dL [facility] Calcium [Mass/Vol] 8.4 mg/dL Low 8.8 - 10. 0 mg/dL [facility] Chloride [Moles/Vol] 88 mmol/L Low 98 - 10 7 mmol/L [facility] CO2 [Moles/Vol] 40 mmol/L High 23 - 31 mmol/L [facility] Creatinine [Mass/Vol] 1.67 mg/dL High 0.72 - 1.25 mg/dL [facility] GFR/1.73 sq M.predicted (S/P/Bld) [Vol rate/Area] 38.9 mL/min Low - PINF [facility] Glucose [Mass/Vol] 94 mg/dL 82 - 115 mg/dL [facility] Interpretation and review of laboratory results Abnormal [facility] Potassium [Moles/Vol] 3.6 mmol/L 3.5 - 5.1 mmol/L [facility] Protein [Mass/Vol] 5.8 g/dL Low 6.4 - 8.3 g/dL [facility] Sodium [Moles/Vol] 138 mmol/L 136 - 145 mmol/L [facility] Urea nitrogen [Mass/Vol] 46 mg/dL High 9 - 23 mg/d L [facility] Laboratory - Chemistry and C hemistry - challengeon 04-17-2025 Magnesium [Mass/Vol] 1.8 mg/dL 1.6 - 2 .6 mg/dL [facility] Laboratory - Hematology and Cell countson 04-17-2025 Anisocytosis Ql (Bld) Slight Abnormal (none) [facility] Basophils (Bld) [#/Vol] 0.4 10*3/uL High 0.0 - 0.2 10*3/uL [facility] Basophils/100 WBC (Bld) 3 % High 0 - 2 % [facility] Eosinophils (Bld) [#/Vol] 0.2 10*3/uL 0.0 - 0.5 10*3/uL [facility] Eosinophils/100 WBC (Bld) 2 % 0 - 6 % [facility] Hypochromia Ql (Bld) Moderate Abnormal (none) [facility] Lymphocytes (Bld) [#/Vol] 1.3 10*3/uL 1.0 - 4.3 10*3/uL [facility] Lymphocytes/100 WBC (Bld) 11 % Low 15 - 45 % [facility] Monocytes (Bld) [#/Vol] 0.8 10*3/uL 0.0 - 0.9 10*3/uL [facility] Monocytes/100 WBC (Bld) 7 % 5 - 13 % [facility] Neutrophils (Bld) [#/Vol] 9.2 10*3/uL High 1.8 - 7.5 10*3/uL [facility] Poikilocytosis LM Ql (Bld) Moderate Abnormal (none) [facility] Polychromasia LM Ql (Bld) Slight Abnormal (none) [facility] RBC morphology finding Nom (Bld) abnormal [facility] Segmented neutrophils/100 WBC (Bld) 77 % 38 - 82 % [facility] Stomatocytes LM Ql (Bld) Moderate Abnormal (none) [facility] Target cells LM Ql (Bld) Slight Abnormal (none) [facility] MAGNESIUMon 04-17-2025 Magnesium [Mass/Vol] 1.8 mg/dL Normal 1.6-2.6 [facility] Comment on above: Result Comment: YARELI [place] COMMENTS:Higher values can be expected in females during menses. Performed By: #### L AB103, LAB17 ####Utility Inspector: UNA ARCE ([id number])[facility] HOSPITALAngel [facility] (SBHLAB)[address] MANUAL DIFFERENTIAL (CELLAVI BANDAR)on 04-17-2025 ANISOCYTOSIS PRESENCE IN BLOOD BY LIGHT MICROSCOPY Slight Abnormal (none) [facility] Comment on above: Performed By: #### Gilbert SN8639, [id number] ####Utility Inspector: UNA ARCE ([id number])[facility] HOSPITALAngel BARBCHRISTINAN (SBHLAB)[address] [place] [address] BAND NEUTROPHILS TOTAL PER COUNTED LEUKOCYTES BY MANUAL COUNT Normal [facility] Comment on above: Performed By: #### L [id number], [id number] ####Utility Inspector: UNA ARCE ([id number])[facility]ITALA [facility] (SBHLAB)[address] BASOPHILS (10*3/UL) IN BLOOD-CELLAVISION 0.4 10*3/uL High 0.0-0.2 [facility] Comment on above: Performed By: #### L OQ5126, [id number] ####Utility Inspector: UNA ARCE ([id number])[facility] (SBHLAB)[address] [place] [address] [place] BASOPHILS TOTAL PER COUNTED LEUKOCYTES BY MANUAL COUNT 3 Normal [facility] Comment on above: Performed By: #### L UP0632, [id number] ####Utility Inspector: UNA STAUFFERMELANIE ([id number])[facility] (SBHLAB)[address] [place] [address] [place] BASOPHILS/100 LEUKOCYTES IN BLOOD-CELLAVISION 3 % High 0-2 [facility] Comment on above: Performed By: #### L GA4417, [id number] ####Utility Inspector: UNA ARCE ([id number])[facility] [place] (SBHLAB)[address] [place] [address] [place] BLASTS TOTAL PER COUNTED LEUKOCYTES BY MANUAL COUNT Normal [facility] Comment on above: Performed By: #### L XC8198, [id number] ####Utility Inspector: UNA ARCE ([id number])[facility] [place] (SBHLAB)[address] [place] [address] [place] EOSINOPHILS (10*3/UL) IN BLOOD-CELLAVISION 0.2 10*3/uL Normal 0.0-0.5 [facility] Comment on above: Performed By: #### L OU6222, [id number] ####Utility Inspector: UNA ARCE ([id number])[facility] [place] (SBHLAB)[address] [place] [address] [place] EOSINOPHILS TOTAL PER COUNTED LEUKOCYTES BY MANUAL COUNT 2 High 0-1 [facility] Comment on above: Performed By: #### L LS2329, [id number] ####Utility Inspector: UNA ARCE ([id number])[facility] [place] (SBHLAB)[address] [place] [address] [place] EOSINOPHILS/100 LEUKOCYTES IN BLOOD-CELLAVISION 2 % Normal 0-6 [facility] Comment on above: Performed By: #### L [id number], [id number] ####Utility Inspector: UNA ARCE ([id number])[facility] [place] (SBHLAB)[address] HYPOCHROMIA (PRESENCE) IN BLOOD BY LIGHT MICROSCOPY Moderate Abnormal (none) [facility] Comment on above: Performed By: #### L OO0339, [id number] ####Utility Inspector: UNA ARCE ([id number])[facility] [place] (SBHLAB)[address] [place] [address] [place] LYMPHOCYTES (10*3/UL) IN BLOOD-CELLAVISION 1.3 10*3/uL Normal 1.0-4.3 [facility] Comment on above: Performed By: #### L [id number], [id number] ####Utility Inspector: UNA ARCE ([id number])[facility] [place] (SBHLAB)[address] LYMPHOCYTES TOTAL PER COUNTED LEUKOCYTES BY MANUAL COUNT 11 Normal [facility] Comment on above: Performed By: #### L HO0927, [id number] ####Utility Inspector: UNA ARCE ([id number])[facility]ITALA BARBUNIVERSITY [facility]OSPITALSN (SBHLAB)[address] [place] [address] [place] LYMPHOCYTES/100 LEUKOCYTES IN BLOOD-CELLAVISION 11 % Low 15-45 [facility] Comment on above: Performed By: #### L IT4387, [id number] ####Utility Inspector: UNA ARCE ([id number])[facility]ITALA [facility]UNIV[facility]ALSN (SBHLAB)[address] [place] [address] [place] METAMYELOCYTES TOTAL PER COUNTED LEUKOCYTES BY MANUAL COUNT Normal [facility] Comment on above: Performed By: #### L HL4128, [id number] ####Utility Inspector: UNA ARCE ([id number])[facility] [place] (SB[facility]AB)[address] [place] [address] [place] MONOCYTES (10*3/UL) IN BLOOD-CELLAVISION 0.8 10*3/uL Normal 0.0-0.9 [facility] Comment on above: Performed By: #### L [id number], [id number] ####Utility Inspector: UNA ARCE ([id number])[facility] (SBHLAB)[address] [place] [address] [place] MONOCYTES TOTAL PER COUNTED LEUKOCYTES BY MANUAL COUNT 7 Normal [facility] Comment on above: Performed By: #### L ZD0465, [id number] ####Utility Inspector: UNA ARCE ([id number])[facility] (SBHLAB)[address] [place] [address] [place] MONOCYTES/100 LEUKOCYTES IN BLOOD-LUCIANA 7 % Normal -13 [facility] Comment on above: Performed By: #### L [id number], [id number] ####Utility Inspector: UNA ARCE ([id number])[facility] [place] (SBHLAB)[address] [place] [address] [place] MYELOCYTES COUNTED BY MANUAL COUNT Normal [facility] Comment on above: Performed By: #### L [id number], [id number] ####Utility Inspector: UNA ARCE ([id number])[facility] (SBHLAB)[address] [place] [address] [place] NEUTROPHILS TOTAL PER COUNTED LEUKOCYTES BY MANUAL COUNT 77 Normal [facility] Comment on above: Performed By: #### L [id number], [id number] ####Utility Inspector: UNA ARCE ([id number])[facility] (SBHLAB)[address] [place] [address] [place] POIKILOCYTOSIS (PRESENCE) IN BLOOD BY LIGHT MICROSCOPY Moderate Abnormal (none) [facility] Comment on above: Performed By: #### L [id number], [id number] ####Utility Inspector: UNA ARCE ([id number])[facility] (SBHLAB)[address] [place] [address] [place] POLYCHROMASIA IN BLOOD BY LIGHT MICROSCOPY Slight Abnormal (none) [facility] Comment on above: Performed By: #### L YE3394, [id number] ####Utility Inspector: UNA ARCE ([id number])[facility] (SBHLAB)[address] [place] [address] [place] PROMYELOCYTES TOTAL PER COUNTED LEUKOCYTES BY MANUAL COUNT Normal [facility] Comment on above: Performed By: #### L [id number], [id number] ####Utility Inspector: UNA ARCE ([id number])[facility] (SBHLAB)[address] RBC MORPHOLOGY IN BLOOD abnormal Normal [facility] Comment on above: Performed By: #### L [id number], [id number] ####Utility Inspector: UNA ARCE ([id number])[facility] [place] ([facility])[address] SEGMENTED NEUTROPHILS (10*3/UL) IN BLOOD-CELLAVISION 9.2 10*3/uL High 1.8-7.5 [facility] Comment on above: Performed By: #### L [id number], [id number] ####Utility Inspector: UNA ARCE ([id number])[facility] [place] (SBHLAB)[address] [place] [address] [place] SEGMENTED NEUTROPHILS/100 LEUKOCYTES-CE 77 % Normal 38-82 [facility] Comment on above: Performed By: #### L QO4526, [id number] ####Utility Inspector: UNA ARCE ([id number])[facility] [place] (SBHLAB)[address] [place] [address] [place] STOMATOCYTES IN BLOOD BY LIGHT MICROSCOPY Moderate Abnormal (none) [facility] Comment on above: Performed By: #### L YO0703, [id number] ####Utility Inspector: UNA ARCE ([id number])[facility] [place] (SBHLAB)[address] [place] [address] [place] TARGET CELLS IN BLOOD BY LIGHT MICROSCOPY Slight Abnormal (none) [facility] Comment on above: Performed By: #### L [id number], [id number] ####Utility Inspector: UNA ARCE ([id number])[facility] [place] (SB[facility])[address] [place] [address] [place] UNCLASSIFIED CELLS TOTAL PER COUNTED LEUKOCYTES BY MANUAL COUNT Normal [facility] Comment on above: Performed By: #### L [id number], [id number] ####Utility Inspector: UNA ARCE ([id number])[facility] (SBHLAB)[address] VARIANT LYMPHOCYTES TOTAL PER COUNTED LEUKOCYTES BY MANUAL COUNT Normal [facility] Comment on above: Performed By: #### L [id number], [id number] ####Utility Inspector: UNA ARCE ([id number])[facility] (SBHLAB)[address] Magnesium [Mass/Vol]on 04-17 Interpretation and review of laboratory results Normal [facility] No Panel Informationon 04-17 [facility] Basophils [facility] Eosin[facility] 2 High 0 - 1 [facility] Interpretation and review of laboratory results Abnormal [facility] Lymphocytes Manual 11 [facility] Monocytes Manual 7 [facility] Neutrophils Manual 77 [facility] Nursing Noteon 04-17-2025 Nursing Note Report given to Flor MYERS at [facility]. All belongings sent with patient, including eyewear. HL removed, site WNL. Normal [facility] Progress Noteon 04-17-2025 Progress Note Normal [facility] Progress Note Normal [facility] [id number] 04-16-2025 [id number] Tasked weekend TTC t o follow for possible dc over the weekend. 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 Normal [facility] [id number] Complete in HEN S for [facility] per TCC request [facility] [phone] Normal [facility] CBC W Auto Differential pane l (Bld)Ordered By: Dayan Hernandez on 04-16-2025 Erythrocyte distribution width (RBC) [Ratio] 25.7 % High 11.5 - 15.0 % [facility] Hematocrit (Bld) [Volume fraction] 28.4 % Low 40.0 - 52.0 % [facility] Hemoglobin (Bld) [Mass/Vol] 8 g/dL Low 13.0 - 18.0 g/dL [facility] Interpretation and review of laboratory results Abnormal [facility] MCH (RBC) [Entitic mass] 23.7 pg Low 26. 0 - 34.0 pg [facility] MCHC (RBC) [Mass/Vol] 28.2 % Low 30.5 - 36.0 % [facility] MCV (RBC) [Entitic vol] 84.3 fL 77.0 - 99.0 fL [facility] Platelet mean volume (Bld) [Entitic vol] 9.1 fL 9.0 - 12.7 fL [facility] Platelets (Bld) [#/Vol] 405 10*3/uL 140 - 440 10*3/uL [facility] RBC (Bld) [#/Vol] 3.37 10*6/uL Low 4.40 - 5.9 0 10*6/uL [facility] WBC (Bld) [#/Vol] 13.1 10*3/uL High 3.6 - 10.7 10*3/uL [facility] CBC WITH AUTO DIFFERENTIALon 04-16-2025 Erythrocyte distribution width (RBC) [Ratio] 25.7 % High 11.5-15.0 [facility] Comment on above: Performed By: #### L [id number], [id number] ####Utility Inspector: UNA [id number])[facility] ([facility])[address] [place] [address] Hematocrit (Bld) [Volume fraction] 28.4 % Low 40.0-52.0 [facility] Comment on above: Performed By: #### L [id number], [id number] ####Utility Inspector: UNA ARCE ([id number])[facility] ([facility])[address] [place] [address] Hemoglobin (Bld) [Mass/Vol] 8.0 g/dL Low 13.0-18.0 [facility] Comment on above: Performed By: #### L [id number], [id number] ####Utility Inspector: UNA ARCE ([id number])[facility] HOSPITALAngel BASHIRN (SBHLAB)[address] MCH (RBC) [Entitic mass] 23.7 pg Low 26.0-34.0 [facility] Comment on above: Performed By: #### L XM3210, [id number] ####Utility Inspector: UNA ARCE ([id number])[facility]OSPITALAngel [facility]ZUNIVERSITY [facility]OSPITALSN (SBHLAB)[address] MCHC 28.2 % Low 30.5-36.0 [facility] Comment on above: Performed By: #### L [id number], [id number] ####Utility Inspector: UNA STAUFFERMELANIE ([id number])[facility]ITALAngel [facility] (SBHLAB)[address] [place] [address] MCV (RBC) [Entitic vol] 84.3 fL Normal 77.0-99.0 [facility] Comment on above: Performed By: #### L [id number], [id number] ####Utility Inspector: UNA ARCE ([id number])[facility]OSPITALAngel [facility] (SBHLAB)[address] Platelet mean volume (Bld) [Entitic vol] 9.1 fL Normal 9.0-12.7 [facility] Comment on above: Performed By: #### L [id number], [id number] ####Utility Inspector: UNA ARCE ([id number])[facility] (SBHLAB)[address] Platelets (Bld) [#/Vol] 405 10*3/uL Normal 140-440 [facility] Comment on above: Performed By: #### L [id number], [id number] ####Utility Inspector: UNA STAUFFERMELANIE ([id number])[facility] (SBHLAB)[address] RBC (Bld) [#/Vol] 3.37 10*6/uL Low 4.40-5.90 [facility] Comment on above: Performed By: #### L [id number], [id number] ####Utility Inspector: UNA ARCE ([id number])[facility] [place] (SBHLAB)[address] WBC (Bld) [#/Vol] 13.1 10*3/uL High 3.6-10.7 [facility] Comment on above: Performed By: #### L [id number], [id number] ####Utility Inspector: UNA ARCE ([id number])[facility]UN[facility]ALS[facility] (SBHLAB)[address] COMPREHENSIVE METABOLIC PANE Anant 04-16-2025 Albumin [Mass/Vol] 2.2 g/dL Low 3.4-4.8 [facility] Comment on above: Performed By: #### L [id number], [id number] ####Utility Inspector: UNA ARCE ([id number])[facility] [place] (SBHLAB)[address] ALP [Catalytic activity/Vol] 55 U/L Normal 40-150 [facility] Comment on above: Performed By: #### L AB103, [id number] ####Utility Inspector: UNA ARCE ([id number])[facility] [place] (SB[facility])[address] ALT [Catalytic activity/Vol] 6 U/L Normal <40 [facility] Comment on above: Performed By: #### L AB103, LAB17 ####Utility Inspector: UNA ARCE ([id number])[facility] [place] (SB[facility]AB)[address] Anion gap [Moles/Vol] 10 mmol/L Normal 3-13 [facility] Comment on above: Performed By: #### L AB103, LAB17 ####Utility Inspector: UNA ARCE ([id number])[facility] (SBHLAB)[address] [place] [address] [place] AST [Catalytic activity/Vol] 23 U/L Normal <34 [facility] Comment on above: Performed By: #### L AB103, LAB17 ####Utility Inspector: UNA ARCE ([id number])[facility] [place] (SBHLAB)[address] Bilirubin [Mass/Vol] 0.5 mg/dL Normal <1.2 [facility] Comment on above: Performed By: #### L AB103, LAB17 ####Utility Inspector: UNA ARCE ([id number])[facility] [place] (SBHLAB)[address] Calcium [Mass/Vol] 8.2 mg/dL Low 8.8-10.0 [facility] Comment on above: Performed By: #### L AB103, LAB17 ####Utility Inspector: UNA ARCE ([id number])[facility] [place] (SB[facility]AB)[address] [place] [address] [place] Chloride [Moles/Vol] 87 mmol/L Low 98-107 [facility] Comment on above: Performed By: #### L AB103, LAB17 ####Utility Inspector: UNA ARCE ([id number])[facility] [place] (SBHLAB)[address] [place] [address] [place] CO2 [Moles/Vol] 43 mmol/L High 23-31 [facility] Comment on above: Performed By: #### L AB103, LAB17 ####Utility Inspector: NUA ARCE ([id number])[facility] [place] (SB[facility]AB)[address] [place] [address] [place] Creatinine [Mass/Vol] 1.81 mg/dL High 0.72-1.25 [facility] Comment on above: Performed By: #### L AB103, LAB17 ####Utility Inspector: UNA ARCE ([id number])[facility] [place] (SBHLAB)[address] [place] [address] [place] GLOMERULAR FILTRATION RATE ML/MIN/1.73 SQ M.PREDICTED 35.3 mL/min/1.73m*2 Low >60.0 [facility] Comment on above: Result Comment: Calc ulation based on the Chronic Kidney Disease Epidemiology Collaboration (CKD-EPI) equation refit without adjustment for race Performed By: #### L AB103, LAB17 ####Utility Inspector: UNA ARCE ([id number])[facility] (SBHLAB)[address] Glucose [Mass/Vol] 114 mg/dL Normal 82-115 [facility] Comment on above: Performed By: #### L AB103, LAB17 ####Utility Inspector: UNA ARCE ([id number])[facility] (SBHLAB)[address] Potassium [Moles/Vol] 3.6 mmol/L Normal 3.5-5.1 [facility] Comment on above: Result Comment: [facility] potassium values may be up to 0.5 mmol/L lower than serum values. Performed By: #### L AB103, LAB17 ####Utility Inspector: UNA ARCE ([id number])[facility] (SBHLAB)[address] Protein [Mass/Vol] 6.0 g/dL Low 6.4-8.3 [facility] Comment on above: Performed By: #### L AB103, LAB17 ####Utility Inspector: UNA ARCE ([id number])[facility] (SBHLAB)[address] [place] [address] [place] Sodium [Moles/Vol] 140 mmol/L Normal 136-145 [facility] Comment on above: Performed By: #### L AB103, LAB17 ####Utility Inspector: UNA ARCE ([id number])[facility] (SBHLAB)[address] Urea nitrogen [Mass/Vol] 46 mg/dL High 9-23 [facility] Comment on above: Performed By: #### L AB103, LAB17 ####Utility Inspector: UNA ARCE ([id number])[facility] (SBHLAB)[address] [place] [address] Comprehensive metabolic 1998 panelon 04-16-2025 Albumin [Mass/Vol] 2.2 g/dL Low 3.4 - 4.8 g/dL [facility] ALP [Catalytic activity/Vol] 55 U/L 40 - 150 U/L [facility] ALT [Catalytic activity/Vol] 6 U/L NINF - 40 U/L [facility] Anion gap [Moles/Vol] 10 mmol/L 3 - 13 mmol/L [facility] AST [Catalytic activity/Vol] 23 U/L NINF - 34 U/L [facility] Bilirubin [Mass/Vol] 0.5 mg/dL NINF - 1.2 mg/dL [facility] Calcium [Mass/Vol] 8.2 mg/dL Low 8.8 - 10. 0 mg/dL [facility] Chloride [Moles/Vol] 87 mmol/L Low 98 - 10 7 mmol/L [facility] CO2 [Moles/Vol] 43 mmol/L High 23 - 31 mmol/L [facility] Creatinine [Mass/Vol] 1.81 mg/dL High 0.72 - 1.25 mg/dL [facility] GFR/1.73 sq M.predicted (S/P/Bld) [Vol rate/Area] 35.3 mL/min Low - PINF [facility] Glucose [Mass/Vol] 114 mg/dL 82 - 115 mg/dL [facility] Interpretation and review of laboratory results Abnormal [facility] Potassium [Moles/Vol] 3.6 mmol/L 3.5 - 5.1 mmol/L [facility] Protein [Mass/Vol] 6 g/dL Low 6.4 - 8.3 g/dL [facility] Sodium [Moles/Vol] 140 mmol/L 136 - 145 mmol/L [facility] Urea nitrogen [Mass/Vol] 46 mg/dL High 9 - 23 mg/d L [facility] Laboratory - Chemistry and C hemistry - challengeon 04-16-2025 Magnesium [Mass/Vol] 1.8 mg/dL 1.6 - 2 .6 mg/dL [facility] Laboratory - Hematology and Cell countson 04-16-2025 Anisocytosis Ql (Bld) Moderate Abnormal (none) [facility] Basophils (Bld) [#/Vol] 0.1 10*3/uL 0.0 - 0.2 10*3/uL [facility] Basophils/100 WBC (Bld) 1 % 0 - 2 % [facility] [place] cells LM Ql (Bld) Slight Abnormal (none) [facility] Eosinophils (Bld) [#/Vol] 0.5 10*3/uL 0.0 - 0.5 10*3/uL [facility] Health Eosinophils/100 WBC (Bld) 4 % 0 - 6 % [facility] Hypochromia Ql (Bld) Slight Abnormal (none) [facility] Lymphocytes (Bld) [#/Vol] 1.6 10*3/uL 1.0 - 4.3 10*3/uL [facility] Lymphocytes/100 WBC (Bld) 12 % Low 15 - 45 % [facility] Monocytes (Bld) [#/Vol] 0.9 10*3/uL 0.0 - 0.9 10*3/uL [facility] Monocytes/100 WBC (Bld) 7 % 5 - 13 % [facility] Neutrophils (Bld) [#/Vol] 9.8 10*3/uL High 1.8 - 7.5 10*3/uL [facility] Poikilocytosis LM Ql (Bld) Slight Abnormal (none) [facility] RBC morphology finding Nom (Bld) abnormal [facility] Segmented neutrophils/100 WBC (Bld) 75 % 38 - 82 % [facility] Variant lymphocytes (Bld) [#/Vol] 0.3 10*3/uL High NINF - 0.0 10*3/uL [facility] Variant lymphocytes/100 WBC (Bld) 2 % High NINF - 0 % [facility] MAGNESIUMon 04-16-2025 Magnesium [Mass/Vol] 1.8 mg/dL Normal 1.6-2.6 [facility] Comment on above: Result Comment: YARELI [place] COMMENTS:Higher values can be expected in females during menses. Performed By: #### L AB103, LAB17 ####Utility Inspector: UNA ARCE ([id number])[facility] (SBHLAB)[address] [place] [address] MANUAL DIFFERENTIAL (CELLAVI BANDAR)on 04-16-2025 ANISOCYTOSIS PRESENCE IN BLOOD BY LIGHT MICROSCOPY Moderate Abnormal (none) [facility] Comment on above: Performed By: #### L [id number], [id number] ####Utility Inspector: UNA ARCE ([id number])[facility] [place] (SBHLAB)[address] [place] [address] [place] BAND NEUTROPHILS TOTAL PER COUNTED LEUKOCYTES BY MANUAL COUNT Normal [facility] Comment on above: Performed By: #### L [id number], [id number] ####Utility Inspector: UNA STAUFFERMELANIE ([id number])[facility] [place] (SBHLAB)[address] [place] [address] [place] BASOPHILS (10*3/UL) IN BLOOD-CELLAVISION 0.1 10*3/uL Normal 0.0-0.2 [facility] Comment on above: Performed By: #### L [id number], [id number] ####Utility Inspector: UNA ARCE ([id number])[facility] [place] (SBHLAB)[address] [place] [address] [place] BASOPHILS TOTAL PER COUNTED LEUKOCYTES BY MANUAL COUNT 1 Normal [facility] Comment on above: Performed By: #### L [id number], [id number] ####Utility Inspector: UNA ARCE ([id number])[facility] [place] (SBHLAB)[address] [place] [address] [place] BASOPHILS/100 LEUKOCYTES IN BLOOD-CELLAVISION 1 % Normal 0-2 [facility] Comment on above: Performed By: #### L [id number], [id number] ####Utility Inspector: UNA ARCE ([id number])[facility] [place] (SBHLAB)[address] [place] [address] [place] BLASTS TOTAL PER COUNTED LEUKOCYTES BY MANUAL COUNT Normal [facility] Comment on above: Performed By: #### L [id number], [id number] ####Utility Inspector: UNA ARCE ([id number])[facility] [place] (SBHLAB)[address] [place] [address] [place] MEENA CELLS PRESENCE IN BLOOD BY LIGHT MICROSCOPY Slight Abnormal (none) [facility] Comment on above: Performed By: #### L [id number], [id number] ####Utility Inspector: UNA ARCE ([id number])[facility] [place] (SBHLAB)[address] [place] [address] [place] EOSINOPHILS (10*3/UL) IN BLOOD-CELLAVISION 0.5 10*3/uL Normal 0.0-0.5 [facility] Comment on above: Performed By: #### L [id number], [id number] ####Utility Inspector: UNA ARCE ([id number])[facility] [place] (SBHLAB)[address] [place] [address] [place] EOSINOPHILS TOTAL PER COUNTED LEUKOCYTES BY MANUAL COUNT 4 High 0-1 [facility] Comment on above: Performed By: #### L [id number], [id number] ####Utility Inspector: UNA ARCE ([id number])[facility] [place] (SBHLAB)[address] [place] [address] [place] EOSINOPHILS/100 LEUKOCYTES IN BLOOD-CELLAVISION 4 % Normal 0-6 [facility] Comment on above: Performed By: #### L [id number], [id number] ####Utility Inspector: UNA ARCE ([id number])[facility] [place] (SB[facility]AB)[address] [place] [address] [place] HYPOCHROMIA (PRESENCE) IN BLOOD BY LIGHT MICROSCOPY Slight Abnormal (none) [facility] Comment on above: Performed By: #### L [id number], [id number] ####Utility Inspector: UNA ARCE ([id number])[facility] [place] (SBHLAB)[address] [place] [address] [place] LYMPHOCYTE VARIANT/100 LEUKOCYTES IN BLOOD- CELLAVISION 2 % High <=0 [facility] Comment on above: Performed By: #### L [id number], [id number] ####Utility Inspector: UNA ARCE ([id number])[facility] [place] (SBHLAB)[address] [place] [address] [place] LYMPHOCYTES (10*3/UL) IN BLOOD-CELLAVISION 1.6 10*3/uL Normal 1.0-4.3 [facility] Comment on above: Performed By: #### L [id number], [id number] ####Utility Inspector: UNA ARCE ([id number])[facility] [place] (SBHLAB)[address] LYMPHOCYTES TOTAL PER COUNTED LEUKOCYTES BY MANUAL COUNT 12 Normal [facility] Comment on above: Performed By: #### L [id number], [id number] ####Utility Inspector: UNA MOHRCER ([id number])[facility] [place] (SBHLAB)[address] [place] [address] [place] LYMPHOCYTES/100 LEUKOCYTES IN BLOOD-CELLAVISION 12 % Low 15-45 [facility] Comment on above: Performed By: #### L [id number], [id number] ####Utility Inspector: UNA ARCE ([id number])[facility] [place] (SBHLAB)[address] METAMYELOCYTES TOTAL PER COUNTED LEUKOCYTES BY MANUAL COUNT [facility] Comment on above: Performed By: #### L [id number], [id number] ####Utility Inspector: UNA ARCE ([id number])[facility] [place] (SBHLAB)[address] [place] [address] [place] MONOCYTES (10*3/UL) IN BLOOD-CELLAVISION 0.9 10*3/uL Normal 0.0-0.9 [facility] Comment on above: Performed By: #### L [id number], [id number] ####Utility Inspector: UNA ARCE ([id number])[facility] [place] (SBHLAB)[address] [place] [address] [place] MONOCYTES TOTAL PER COUNTED LEUKOCYTES BY MANUAL COUNT 7 Normal [facility] Comment on above: Performed By: #### L [id number], [id number] ####Utility Inspector: UNA AREC ([id number])[facility] [place] (SBHLAB)[address] [place] [address] [place] MONOCYTES/100 LEUKOCYTES IN BLOOD-LUCIANA 7 % Normal 5-13 [facility] Comment on above: Performed By: #### L [id number], [id number] ####Utility Inspector: UNA ARCE ([id number])[facility] [place] (SBHLAB)[address] [place] [address] [place] MYELOCYTES COUNTED BY MANUAL COUNT Normal [facility] Comment on above: Performed By: #### L [id number], [id number] ####Utility Inspector: UNA ARCE ([id number])[facility] [place] (SBHLAB)[address] [place] [address] [place] NEUTROPHILS TOTAL PER COUNTED LEUKOCYTES BY MANUAL COUNT 77 Normal [facility] Comment on above: Performed By: #### L [id number], [id number] ####Utility Inspector: UNA ARCE ([id number])[facility] [place] (SBHLAB)[address] [place] [address] [place] POIKILOCYTOSIS (PRESENCE) IN BLOOD BY LIGHT MICROSCOPY Slight Abnormal (none) [facility] Comment on above: Performed By: #### L [id number], [id number] ####Utility Inspector: UNA ARCE ([id number])[facility] [place] (SBHLAB)[address] [place] [address] [place] PROMYELOCYTES TOTAL PER COUNTED LEUKOCYTES BY MANUAL COUNT Normal [facility] Comment on above: Performed By: #### L [id number], [id number] ####Utility Inspector: UNA ARCE ([id number])[facility] [place] (SBHLAB)[address] [place] [address] [place] RBC MORPHOLOGY IN BLOOD abnormal Normal [facility] Comment on above: Performed By: #### L [id number], [id number] ####Utility Inspector: NUA ARCE ([id number])[facility] [place] (SB[facility])[address] [place] [address] [place] SEGMENTED NEUTROPHILS (10*3/UL) IN BLOOD-CELLAVISION 9.8 10*3/uL High 1.8-7.5 [facility] Comment on above: Performed By: #### L [id number], [id number] ####Utility Inspector: UNA ARCE ([id number])[facility] [place] (SB[facility]AB)[address] SEGMENTED NEUTROPHILS/100 LEUKOCYTES-CE 75 % Normal 38-82 [facility] Comment on above: Performed By: #### L [id number], [id number] ####Utility Inspector: UNA ARCE ([id number])[facility] [place] (SB[facility])[address] UNCLASSIFIED CELLS TOTAL PER COUNTED LEUKOCYTES BY MANUAL COUNT Normal [facility] Comment on above: Performed By: #### L [id number], [id number] ####Utility Inspector: UNA ARCE ([id number])[facility] (SBHLAB)[address] VARIANT LYMPHOCYTES (10*3/UL) IN BLOOD-CELLAVISION 0.3 10*3/uL High <=0.0 [facility] Comment on above: Performed By: #### L [id number], [id number] ####Utility Inspector: UNA ARCE ([id number])[facility] [place] (SB[facility])[address] VARIANT LYMPHOCYTES TOTAL PER COUNTED LEUKOCYTES BY MANUAL COUNT 2 Normal [facility] Comment on above: Performed By: #### L [id number], [id number] ####Utility Inspector: UNA ARCE ([id number])[facility] [place] (SB[facility])[address] [place] [address] [place] Magnesium [Mass/Vol]on 04-16 Interpretation and review of laboratory results Normal [facility] No Panel Informationon 04-16 [facility] Atypical Lymphocytes Manual 2 [facility] Mirror Digital Basophils [facility] Eosin[facility] Manual 4 High 0 - 1 [facility] Interpretation and review of laboratory results Abnormal [facility] Mirror Digital Lymphocytes Manual 12 [facility] Monocytes Manual 7 [facility] alth Neutrophils Manual 77 [facility] Nursing Noteon 04-16-2025 Nursing Note Normal [facility] Progress Noteon 04-16-2025 Progress Note Normal [facility] Progress [facility] Normal [facility] [id number] 04-15-2025 [id number] Normal [facility] Bacteria identified Anaer cx Nom (Unsp spec)on 04-15-2025 Interpretation and review of laboratory results Normal [facility] CBC W Auto Differential pane l (Bld)on 04-15-2025 Erythrocyte distribution width (RBC) [Ratio] 25.3 % High 11.5 - 15.0 % [facility] Hematocrit (Bld) [Volume fraction] 28 % Low 40.0 - 52.0 % [facility] Hemoglobin (Bld) [Mass/Vol] 7.8 g/dL Low 13.0 - 18.0 g/dL [facility] Interpretation and review of laboratory results Abnormal [facility] MCH (RBC) [Entitic mass] 23.4 pg Low 26. 0 - 34.0 pg [facility] MCHC (RBC) [Mass/Vol] 27.9 % Low 30.5 - 36.0 % [facility] MCV (RBC) [Entitic vol] 84.1 fL 77.0 - 99.0 fL [facility] Platelet mean volume (Bld) [Entitic vol] 9.1 fL 9.0 - 12.7 fL [facility] Platelets (Bld) [#/Vol] 332 10*3/uL 140 - 440 10*3/uL [facility] RBC (Bld) [#/Vol] 3.33 10*6/uL Low 4.40 - 5.9 0 10*6/uL [facility] WBC (Bld) [#/Vol] 12.4 10*3/uL High 3.6 - 10.7 10*3/uL [facility] CBC WITH AUTO DIFFERENTIALon 04-15-2025 Erythrocyte distribution width (RBC) [Ratio] 25.3 % High 11.5-15.0 [facility] Comment on above: Performed By: #### L [id number], [id number] ####Utility Inspector: UNA STAUFFERMELANIE ([id number])[facility] (SBHLAB)[address] Hematocrit (Bld) [Volume fraction] 28.0 % Low 40.0-52.0 [facility] Comment on above: Performed By: #### L [id number], [id number] ####Utility Inspector: UNA ARCE ([id number])[facility]ITAL[facility] (SBHLAB)[address] Hemoglobin (Bld) [Mass/Vol] 7.8 g/dL Low 13.0-18.0 [facility] Comment on above: Performed By: #### L [id number], [id number] ####Utility Inspector: UNA STAUFFERMELANIE ([id number])[facility] (SBHLAB)[address] MCH (RBC) [Entitic mass] 23.4 pg Low 26.0-34.0 [facility] Comment on above: Performed By: #### L [id number], [id number] ####Utility Inspector: UNA ARCE ([id number])[facility]ITAL[facility]ZUNIVERS[facility] (SBHLAB)[address] MCHC 27.9 % Low 30.5-36.0 [facility] Comment on above: Performed By: #### L [id number], [id number] ####Utility Inspector: UNA ARCE ([id number])[facility]ITAL[facility]UN[facility] (SBHLAB)[address] MCV (RBC) [Entitic vol] 84.1 fL Normal 77.0-99.0 [facility] Comment on above: Performed By: #### L [id number], [id number] ####Utility Inspector: UNA ARCE ([id number])[facility] [place] (SBHLAB)[address] Platelet mean volume (Bld) [Entitic vol] 9.1 fL Normal 9.0-12.7 [facility] Comment on above: Performed By: #### L [id number], [id number] ####Utility Inspector: UNA ARCE ([id number])[facility] LAURAUNIVERSITY [facility]ITALSN (SBHLAB)[address] Platelets (Bld) [#/Vol] 332 10*3/uL Normal 140-440 [facility] Comment on above: Performed By: #### L [id number], [id number] ####Utility Inspector: UNA ARCE ([id number])[facility] [place] (SBHLAB)[address] RBC (Bld) [#/Vol] 3.33 10*6/uL Low 4.40-5.90 [facility] Comment on above: Performed By: #### L [id number], [id number] ####Utility Inspector: UNA ARCE ([id number])[facility] (SBHLAB)[address] WBC (Bld) [#/Vol] 12.4 10*3/uL High 3.6-10.7 [facility] Comment on above: Performed By: #### L [id number], [id number] ####Utility Inspector: UNA ARCE ([id number])[facility] (SBHLAB)[address] COMPREHENSIVE METABOLIC PANE Anant 04-15-2025 Albumin [Mass/Vol] 2.1 g/dL Low 3.4-4.8 [facility] Comment on above: Performed By: #### L AB17, [id number] ####Utility Inspector: UNA ARCE ([id number])[facility] (SB[facility]AB)[address] ALP [Catalytic activity/Vol] 48 U/L Normal 40-150 [facility] Comment on above: Performed By: #### L AB17, [id number] ####Utility Inspector: UNA [id number])[facility] [place] (SBHLAB)[address] ALT [Catalytic activity/Vol] U/L Normal <40 [facility] Comment on above: Performed By: #### L AB17, [id number] ####Utility Inspector: UNA ARCE ([id number])[facility] [place] (SBHLAB)[address] Anion gap [Moles/Vol] 9 mmol/L Normal 3-13 [facility] Comment on above: Performed By: #### L AB17, [id number] ####Utility Inspector: UNA ARCE ([id number])[facility] [place] ([facility])[address] AST [Catalytic activity/Vol] 21 U/L Normal <34 [facility] Comment on above: Performed By: #### L AB17, [id number] ####Utility Inspector: UNA ARCE ([id number])[facility] [place] (SB[facility])[address] Bilirubin [Mass/Vol] 0.6 mg/dL Normal <1.2 [facility] Comment on above: Performed By: #### L AB17, [id number] ####Utility Inspector: UNA ARCE ([id number])[facility] [place] (SB[facility])[address] Calcium [Mass/Vol] 8.2 mg/dL Low 8.8-10.0 [facility] Comment on above: Performed By: #### L AB17, [id number] ####Utility Inspector: UNA ARCE ([id number])[facility] [place] (SBHLAB)[address] [place] [address] [place] Chloride [Moles/Vol] 90 mmol/L Low 98-107 [facility] Comment on above: Performed By: #### L AB17, [id number] ####Utility Inspector: UNA ARCE ([id number])[facility] [place] ([facility])[address] CO2 [Moles/Vol] 40 mmol/L High 23-31 [facility] Comment on above: Performed By: #### L AB17, [id number] ####Utility Inspector: UNA ARCE ([id number])[facility]ITALAngel BASHIRN (SBHLAB)[address] Creatinine [Mass/Vol] 1.58 mg/dL High 0.72-1.25 [facility] Comment on above: Performed By: #### L AB17, [id number] ####Utility Inspector: UNA ARCE ([id number])[facility] S[facility]ZUNIVERS[facility]ALSN (SBHLAB)[address] GLOMERULAR FILTRATION RATE ML/MIN/1.73 SQ M.PREDICTED 41.6 mL/min/1.73m*2 Low >60.0 [facility] Comment on above: Result Comment: Calc ulation based on the Chronic Kidney Disease Epidemiology Collaboration (CKD-EPI) equation refit without adjustment for race Performed By: #### L AB17, [id number] ####Utility Inspector: UNA ARCE ([id number])[facility]ZUNIV[facility] (SBHLAB)[address] Glucose [Mass/Vol] 130 mg/dL High 82-115 [facility] Comment on above: Performed By: #### L AB17, [id number] ####Utility Inspector: UNA ARCE ([id number])[facility]ZUNIVERS[facility] (SBHLAB)[address] Potassium [Moles/Vol] 3.5 mmol/L Normal 3.5-5.1 [facility] Comment on above: Result Comment: [facility] potassium values may be up to 0.5 mmol/L lower than serum values. Performed By: #### L AB17, [id number] ####Utility Inspector: UNA ARCE ([id number])[facility]ITALAngel S[facility]ZUNIVERS[facility]ALS[facility] (SBHLAB)[address] Protein [Mass/Vol] 5.7 g/dL Low 6.4-8.3 [facility] Comment on above: Performed By: #### L [id number], [id number] ####Utility Inspector: UNA BERMUDEZSILASMELANIE ([id number])[facility] (SBHLAB)[address] Sodium [Moles/Vol] 139 mmol/L Normal 136-145 [facility] Comment on above: Performed By: #### L [id number], [id number] ####Utility Inspector: UNA BERMUDEZPEDRO ([id number])[facility] (SBHLAB)[address] Urea nitrogen [Mass/Vol] 43 mg/dL High 9-23 [facility] Comment on above: Performed By: #### L [id number], [id number] ####Utility Inspector: UNAANJEL BERMUDEZPEDRO ([id number])[facility] (SBHLAB)[address] Comprehensive metabolic 1998 panelon 04-15-2025 Albumin [Mass/Vol] 2.1 g/dL Low 3.4 - 4.8 g/dL [facility] ALP [Catalytic activity/Vol] 48 U/L 40 - 150 U/L [facility] ALT [Catalytic activity/Vol] U[facility] Anion gap [Moles/Vol] 9 mmol/L 3 - 13 mmol/L [facility] AST [Catalytic activity/Vol] 21 U/L [facility] U/L [facility] Bilirubin [Mass/Vol] 0.6 mg/dL NINF - 1.2 mg/dL [facility] Calcium [Mass/Vol] 8.2 mg/dL Low 8.8 - 10. 0 mg/dL [facility] Chloride [Moles/Vol] 90 mmol/L Low 98 - 10 7 mmol/L [facility] CO2 [Moles/Vol] 40 mmol/L High 23 - 31 mmol/L [facility] Creatinine [Mass/Vol] 1.58 mg/dL High 0.72 - 1.25 mg/dL [facility] GFR/1.73 sq M.predicted (S/P/Bld) [Vol rate/Area] 41.6 mL/min Low - PINF [facility] Glucose [Mass/Vol] 130 mg/dL High 82 - 115 mg/dL [facility] Interpretation and review of laboratory results Abnormal [facility] Potassium [Moles/Vol] 3.5 mmol/L 3.5 - 5.1 mmol/L [facility] Protein [Mass/Vol] 5.7 g/dL Low 6.4 - 8.3 g/dL [facility] Sodium [Moles/Vol] 139 mmol/L 136 - 145 mmol/L [facility] Urea nitrogen [Mass/Vol] 43 mg/dL High 9 - 23 mg/d L [facility] Laboratory - Chemistry and C hemistry - challengeon 04-15-2025 Magnesium [Mass/Vol] 1.8 mg/dL 1.6 - 2 .6 mg/dL [facility] Laboratory - Hematology and Cell countson 04-15-2025 Anisocytosis Ql (Bld) Moderate Abnormal (none) [facility] Basophils (Bld) [#/Vol] 0.2 10*3/uL 0.0 - 0.2 10*3/uL [facility] Basophils/100 WBC (Bld) 2 % 0 - 2 % [facility] Eosinophils (Bld) [#/Vol] 0.1 10*3/uL 0.0 - 0.5 10*3/uL [facility] Eosinophils/100 WBC (Bld) 1 % 0 - 6 % [facility] Hypochromia Ql (Bld) Moderate Abnormal (none) [facility] Lymphocytes (Bld) [#/Vol] 1.2 10*3/uL 1.0 - 4.3 10*3/uL [facility] Lymphocytes/100 WBC (Bld) 10 % Low 15 - 45 % [facility] Monocytes (Bld) [#/Vol] 1.6 10*3/uL High 0.0 - 0.9 10*3/uL [facility] Monocytes/100 WBC (Bld) 13 % 5 - 13 % [facility] Neutrophils (Bld) [#/Vol] 9.3 10*3/uL High 1.8 - 7.5 10*3/uL [facility] Poikilocytosis LM Ql (Bld) Slight Abnormal (none) [facility] RBC morphology finding Nom (Bld) abnormal [facility] Segmented neutrophils/100 WBC (Bld) 75 % 38 - 82 % [facility] Stomatocytes LM Ql (Bld) Slight Abnormal (none) [facility] Laboratory - Microbiology an d Antimicrobial susceptibilityon 04-15-2025 Bacteria identified Anaer cx Nom (Unsp spec) No growth at 5 days [facility] Lower GI hemoglobin spec 1 I A Ql (Stl)Ordered By: Haroldo Alvarez on 04-15-2025 Fecal occult blood Negative Negative [facility] Interpretation and review of laboratory results Normal [facility] MAGNESIUMon 04-15-2025 Magnesium [Mass/Vol] 1.8 mg/dL Normal 1.6-2.6 [facility] Comment on above: Result Comment: YARELI R COMMENTS:Higher values can be expected in females during menses. Performed By: #### L [id number], [id number] ####Utility Inspector: UNA ARCE ([id number])[facility]ITALAngel [facility] ([facility])[address] [place] [address] MANUAL DIFFERENTIAL (CELLAVI BANDAR)on 04-15-2025 ANISOCYTOSIS PRESENCE IN BLOOD BY LIGHT MICROSCOPY Moderate Abnormal (none) [facility] Comment on above: Performed By: #### L [id number], [id number] ####Utility Inspector: UNA ARCE ([id number])[facility]ITAL[facility] ([facility])[address] BAND NEUTROPHILS TOTAL PER COUNTED LEUKOCYTES BY MANUAL COUNT Normal [facility] Comment on above: Performed By: #### L [id number], [id number] ####Utility Inspector: UNA ARCE ([id number])[facility]ITAL[facility] (SBHLAB)[address] BASOPHILS (10*3/UL) IN BLOOD-CELLAVISION 0.2 10*3/uL Normal 0.0-0.2 [facility] Comment on above: Performed By: #### L [id number], [id number] ####Utility Inspector: UNA ARCE ([id number])[facility] (SBHLAB)[address] BASOPHILS TOTAL PER COUNTED LEUKOCYTES BY MANUAL COUNT 2 Normal [facility] Comment on above: Performed By: #### L [id number], [id number] ####Utility Inspector: UNA ARCE ([id number])[facility]ITALA [place] (SBHLAB)[address] [place] [address] [place] BASOPHILS/100 LEUKOCYTES IN BLOOD-CELLAVISION 2 % Normal 0-2 [facility] Comment on above: Performed By: #### L [id number], [id number] ####Utility Inspector: UNA ARCE ([id number])[facility] [place] (SBHLAB)[address] [place] [address] [place] BLASTS TOTAL PER COUNTED LEUKOCYTES BY MANUAL COUNT Normal [facility] Comment on above: Performed By: #### L [id number], [id number] ####Utility Inspector: UNA STAUFFERMELANIE ([id number])[facility] [place] (SBHLAB)[address] [place] [address] [place] EOSINOPHILS (10*3/UL) IN BLOOD-CELLAVISION 0.1 10*3/uL Normal 0.0-0.5 [facility] Comment on above: Performed By: #### L [id number], [id number] ####Utility Inspector: UNA ARCE ([id number])[facility] [place] (SBHLAB)[address] [place] [address] [place] EOSINOPHILS TOTAL PER COUNTED LEUKOCYTES BY MANUAL COUNT 1 Normal 0-1 [facility] Comment on above: Performed By: #### L [id number], [id number] ####Utility Inspector: UNA ARCE ([id number])[facility] [place] (SBHLAB)[address] [place] [address] [place] EOSINOPHILS/100 LEUKOCYTES IN BLOOD-CELLAVISION 1 % Normal 0-6 [facility] Comment on above: Performed By: #### L [id number], [id number] ####Utility Inspector: UNA ARCE ([id number])[facility] [place] (SBHLAB)[address] [place] [address] [place] HYPOCHROMIA (PRESENCE) IN BLOOD BY LIGHT MICROSCOPY Moderate Abnormal (none) [facility] Comment on above: Performed By: #### L [id number], [id number] ####Utility Inspector: UNA ARCE ([id number])[facility] [place] (SBHLAB)[address] [place] [address] [place] LYMPHOCYTES (10*3/UL) IN BLOOD-CELLAVISION 1.2 10*3/uL Normal 1.0-4.3 [facility] Comment on above: Performed By: #### L [id number], [id number] ####Utility Inspector: UNA ARCE ([id number])[facility] [place] (SBHLAB)[address] LYMPHOCYTES TOTAL PER COUNTED LEUKOCYTES BY MANUAL COUNT 10 Normal [facility] Comment on above: Performed By: #### L [id number], [id number] ####Utility Inspector: UNA ARCE ([id number])[facility] [place] (SBHLAB)[address] [place] [address] [place] LYMPHOCYTES/100 LEUKOCYTES IN BLOOD-CELLAVISION 10 % Low 15-45 [facility] Comment on above: Performed By: #### L [id number], [id number] ####Utility Inspector: UNA ARCE ([id number])[facility] [place] (SBHLAB)[address] [place] [address] [place] METAMYELOCYTES TOTAL PER COUNTED LEUKOCYTES BY MANUAL COUNT Normal [facility] Comment on above: Performed By: #### L [id number], [id number] ####Utility Inspector: UNA ARCE ([id number])[facility] [place] (SBHLAB)[address] [place] [address] [place] MONOCYTES (10*3/UL) IN BLOOD-CELLAVISION 1.6 10*3/uL High 0.0-0.9 [facility] Comment on above: Performed By: #### L [id number], [id number] ####Utility Inspector: UNA ARCE ([id number])[facility] [place] (SBHLAB)[address] [place] [address] [place] MONOCYTES TOTAL PER COUNTED LEUKOCYTES BY MANUAL COUNT 13 Normal [facility] Comment on above: Performed By: #### L [id number], [id number] ####Utility Inspector: UNA STAUFFERMELANIE ([id number])[facility] [place] (SBHLAB)[address] [place] [address] [place] MONOCYTES/100 LEUKOCYTES IN BLOOD-LUCIANA 13 % Normal - [facility] Comment on above: Performed By: #### L [id number], [id number] ####Utility Inspector: UNA STAUFFERMELANIE ([id number])[facility] [place] (SBHLAB)[address] [place] [address] [place] MYELOCYTES COUNTED BY MANUAL COUNT [facility] Comment on above: Performed By: #### L [id number], [id number] ####Utility Inspector: UNA STAUFFERMELANIE ([id number])[facility] [place] (SBHLAB)[address] [place] [address] [place] NEUTROPHILS TOTAL PER COUNTED LEUKOCYTES BY MANUAL COUNT 77 Normal [facility] Comment on above: Performed By: #### L [id number], [id number] ####Utility Inspector: UNA ARCE ([id number])[facility] [place] (SBHLAB)[address] [place] [address] [place] POIKILOCYTOSIS (PRESENCE) IN BLOOD BY LIGHT MICROSCOPY Slight Abnormal (none) [facility] Comment on above: Performed By: #### L [id number], [id number] ####Utility Inspector: UNA ARCE ([id number])[facility] [place] (SBHLAB)[address] [place] [address] [place] PROMYELOCYTES TOTAL PER COUNTED LEUKOCYTES BY MANUAL COUNT [facility] Comment on above: Performed By: #### L [id number], [id number] ####Utility Inspector: UNA ARCE ([id number])[facility] [place] (SBHLAB)[address] [place] [address] [place] RBC MORPHOLOGY IN BLOOD abnormal Normal [facility] Comment on above: Performed By: #### L [id number], [id number] ####Utility Inspector: UNA ARCE ([id number])[facility]ITALA [facility] (SBHLAB)[address] SEGMENTED NEUTROPHILS (10*3/UL) IN BLOOD-CELLAVISION 9.3 10*3/uL High 1.8-7.5 [facility] Comment on above: Performed By: #### L [id number], [id number] ####Utility Inspector: UNA ARCE ([id number])[facility]ITALA [facility] (SBHLAB)[address] SEGMENTED NEUTROPHILS/100 LEUKOCYTES-CE 75 % Normal 38-82 [facility] Comment on above: Performed By: #### L [id number], [id number] ####Utility Inspector: UNA ARCE ([id number])[facility] (SBHLAB)[address] STOMATOCYTES IN BLOOD BY LIGHT MICROSCOPY Slight Abnormal (none) [facility] Comment on above: Performed By: #### L [id number], [id number] ####Utility Inspector: UNA ARCE ([id number])[facility] (SBHLAB)[address] UNCLASSIFIED CELLS TOTAL PER COUNTED LEUKOCYTES BY MANUAL COUNT Normal [facility] Comment on above: Performed By: #### L [id number], [id number] ####Utility Inspector: UNA ARCE ([id number])[facility] (SBHLAB)[address] VARIANT LYMPHOCYTES TOTAL PER COUNTED LEUKOCYTES BY MANUAL COUNT Normal [facility] Comment on above: Performed By: #### L [id number], [id number] ####Utility Inspector: UNA ARCE ([id number])[facility] (SBHLAB)[address] [place] [address] [place] Magnesium [Mass/Vol]on 04-15 Interpretation and review of laboratory results Normal [facility] No Panel Informationon 04-15 Basophils Manual 2 [facility] alth Eosinophils Manual 1 0 - 1 [facility] Interpretation and review of laboratory results Abnormal [facility] Lymphocytes Manual 10 [facility] Monocytes Manual 13 [facility] Neutrophils Manual 77 [facility] OCCULT BLOOD, STOOLon 2024 OCCULT BLOOD, STOOL FECAL OCCULT, STOOL Reference Negative Negative ORDER COMMENTS: Methodology: Immunoassay Normal [facility] Comment on above: Performed By: #### L [id number] ####Utility Inspector: UNA ARCE ([id number])[facility] ([facility] [place] [address] Progress Noteon 04-15-2025 Progress Note Normal [facility] Normal [facility] Progress Note Normal [facility] XR Chest Single viewon 04[facility]15 [facility] Radiology Study observation (narrative) Lynette Balderrama alth [id number] 04-14-2025 [id number] Normal [facility] Bacteria identified Anaer cx Nom (Unsp spec)on 04-14-2025 Interpretation and review of laboratory results Normal [facility] CBC W Auto Differential pane l (Bld)on 04-14-2025 Erythrocyte distribution width (RBC) [Ratio] 25.4 % High 11.5 - 15.0 % [facility] Hematocrit (Bld) [Volume fraction] 27.3 % Low 40.0 - 52.0 % [facility] Hemoglobin (Bld) [Mass/Vol] 7.6 g/dL Low 13.0 - 18.0 g/dL [facility] MCH (RBC) [Entitic mass] 23.2 pg Low 26. 0 - 34.0 pg [facility] MCHC (RBC) [Mass/Vol] 27.8 % Low 30.5 - 36.0 % [facility] MCV (RBC) [Entitic vol] 83.5 fL 77.0 - 99.0 fL [facility] Platelet mean volume (Bld) [Entitic vol] 8.9 fL Low 9.0 - 12.7 fL [facility] Platelets (Bld) [#/Vol] 293 10*3/uL 140 - 440 10*3/uL [facility] RBC (Bld) [#/Vol] 3.27 10*6/uL Low 4.40 - 5.9 0 10*6/uL [facility] WBC (Bld) [#/Vol] 12.3 10*3/uL High 3.6 - 10.7 10*3/uL [facility] CBC WITH AUTO DIFFERENTIALon 04-14-2025 Erythrocyte distribution width (RBC) [Ratio] 25.4 % High 11.5-15.0 [facility] Comment on above: Performed By: #### L [id number], [id number] ####Utility Inspector: UNA ARCE ([id number])[facility] (SBAB)[address] [place] [address] Hematocrit (Bld) [Volume fraction] 27.3 % Low 40.0-52.0 [facility] Comment on above: Performed By: #### L [id number], [id number] ####Utility Inspector: UNA ARCE ([id number])[facility] (SBHLAB)[address] [place] [address] Hemoglobin (Bld) [Mass/Vol] 7.6 g/dL Low 13.0-18.0 [facility] Comment on above: Performed By: #### L [id number], [id number] ####Utility Inspector: UNA ARCE ([id number])[facility] (SBHLAB)[address] [place] [address] MCH (RBC) [Entitic mass] 23.2 pg Low 26.0-34.0 [facility] Comment on above: Performed By: #### L [id number], [id number] ####Utility Inspector: UNA ARCE ([id number])[facility] (SBHLAB)[address] [place] [address] MCHC 27.8 % Low 30.5-36.0 [facility] Comment on above: Performed By: #### L [id number], [id number] ####Utility Inspector: UNA ARCE ([id number])[facility] (SBAB)[address] MCV (RBC) [Entitic vol] 83.5 fL Normal 77.0-99.0 [facility] Comment on above: Performed By: #### L [id number], [id number] ####Utility Inspector: UNA ARCE ([id number])[facility] BASHIRN (SBHLAB)[address] Platelet mean volume (Bld) [Entitic vol] 8.9 fL Low 9.0-12.7 [facility] Comment on above: Performed By: #### L [id number], [id number] ####Utility Inspector: UNA ARCE ([id number])[facility]ITALAngel BASH[facility]N (SBHLAB)[address] Platelets (Bld) [#/Vol] 293 10*3/uL Normal 140-440 [facility] Comment on above: Performed By: #### L [id number], [id number] ####Utility Inspector: UNA ARCE ([id number])[facility]ITALAngel BASH[facility]N (SBHLAB)[address] RBC (Bld) [#/Vol] 3.27 10*6/uL Low 4.40-5.90 [facility] Comment on above: Performed By: #### L [id number], [id number] ####Utility Inspector: UNA ARCE ([id number])[facility]ITALAngel BASH[facility]N (SBHLAB)[address] WBC (Bld) [#/Vol] 12.3 10*3/uL High 3.6-10.7 [facility] Comment on above: Performed By: #### L [id number], [id number] ####Utility Inspector: UNA ARCE ([id number])[facility]TE BASHIRN (SBHLAB)[address] COMPREHENSIVE METABOLIC PANE Anant 04-14-2025 Albumin [Mass/Vol] 2.1 g/dL Low 3.4-4.8 [facility] Comment on above: Performed By: #### L [id number], LAB17 ####Utility Inspector: UNA ARCE ([id number])[facility]ITALA MCKAYN (SBHLAB)[address] ALP [Catalytic activity/Vol] 47 U/L Normal 40-150 [facility] Comment on above: Performed By: #### L [id number], LAB17 ####Utility Inspector: UNA ARCE ([id number])[facility] [place] (SBHLAB)[address] ALT [Catalytic activity/Vol] U/L Normal <40 [facility] Comment on above: Performed By: #### L [id number], LAB17 ####Utility Inspector: UNA ARCE ([id number])[facility]ITALA [facility] (SBHLAB)[address] Anion gap [Moles/Vol] 9 mmol/L Normal 3-13 [facility] Comment on above: Performed By: #### L [id number], LAB17 ####Utility Inspector: UNA ARCE ([id number])[facility]A [facility] (SBHLAB)[address] AST [Catalytic activity/Vol] 19 U/L Normal <34 [facility] Comment on above: Performed By: #### L [id number], LAB17 ####Utility Inspector: UNA ARCE ([id number])[facility] [place] (SBHLAB)[address] Bilirubin [Mass/Vol] 0.6 mg/dL Normal <1.2 [facility] Comment on above: Performed By: #### L [id number], LAB17 ####Utility Inspector: UNA ARCE ([id number])[facility]A [facility] (SBHLAB)[address] Calcium [Mass/Vol] 8.1 mg/dL Low 8.8-10.0 [facility] Comment on above: Performed By: #### L [id number], LAB17 ####Utility Inspector: UNA ARCE ([id number])LYNETTE BARBCHRISTINAN (SBHLAB)[address] Chloride [Moles/Vol] 92 mmol/L Low 98-107 [facility] Comment on above: Performed By: #### L AB103, LAB17 ####Utility Inspector: UNA ARCE ([id number])[facility] [place] (SBHLAB)[address] CO2 [Moles/Vol] 39 mmol/L High 23-31 [facility] Comment on above: Performed By: #### L [id number], LAB17 ####Utility Inspector: UNA ARCE ([id number])[facility]ITALAngel [place] (SBHLAB)[address] Creatinine [Mass/Vol] 1.43 mg/dL High 0.72-1.25 [facility] Comment on above: Performed By: #### L [id number], LAB17 ####Utility Inspector: UNA ARCE ([id number])[facility]ITALA [place] (SBHLAB)[address] GLOMERULAR FILTRATION RATE ML/MIN/1.73 SQ M.PREDICTED 46.8 mL/min/1.73m*2 Low >60.0 [facility] Comment on above: Result Comment: Calc ulation based on the Chronic Kidney Disease Epidemiology Collaboration (CKD-EPI) equation refit without adjustment for race Performed By: #### L AB103, LAB17 ####Utility Inspector: UNA ARCE ([id number])[facility]ITALAngel [place] (SBHLAB)[address] [place] [address] [place] Glucose [Mass/Vol] 97 mg/dL Normal 82-115 [facility] Comment on above: Performed By: #### L [id number], LAB17 ####Utility Inspector: UNA ARCE ([id number])[facility] [place] (SBHLAB)[address] [place] [address] [place] Potassium [Moles/Vol] 3.8 mmol/L Normal 3.5-5.1 [facility] Comment on above: Result Comment: [facility] potassium values may be up to 0.5 mmol/L lower than serum values. Performed By: #### L AB103, LAB17 ####Utility Inspector: UNA ARCE ([id number])[facility] (SBHLAB)[address] Protein [Mass/Vol] 5.7 g/dL Low 6.4-8.3 [facility] Comment on above: Performed By: #### L AB103, LAB17 ####Utility Inspector: UNA ARCE ([id number])[facility] (SBHLAB)[address] Sodium [Moles/Vol] 140 mmol/L Normal 136-145 [facility] Comment on above: Performed By: #### L AB103, LAB17 ####Utility Inspector: UNA ARCE ([id number])[facility] (SBHLAB)[address] Urea nitrogen [Mass/Vol] 39 mg/dL High 9-23 [facility] Comment on above: Performed By: #### L AB103, LAB17 ####Utility Inspector: UNA STAUFFERMELANIE ([id number])[facility] (SBHLAB)[address] Comprehensive metabolic 1998 panelon 04-14-2025 Albumin [Mass/Vol] 2.1 g/dL Low 3.4 - 4.8 g/dL [facility] ALP [Catalytic activity/Vol] 47 U/L 40 - 150 U/L [facility] ALT [Catalytic activity/Vol] U/L NINF - 40 U/L [facility] Anion gap [Moles/Vol] 9 mmol/L 3 - 13 mmol/L [facility] AST [Catalytic activity/Vol] 19 U/L NINF - 34 U/L [facility] Bilirubin [Mass/Vol] 0.6 mg/dL NINF - 1.2 mg/dL [facility] Calcium [Mass/Vol] 8.1 mg/dL Low 8.8 - 10. 0 mg/dL [facility] Chloride [Moles/Vol] 92 mmol/L Low 98 - 10 7 mmol/L [facility] CO2 [Moles/Vol] 39 mmol/L High 23 - 31 mmol/L [facility] Creatinine [Mass/Vol] 1.43 mg/dL High 0.72 - 1.25 mg/dL [facility] GFR/1.73 sq M.predicted (S/P/Bld) [Vol rate/Area] 46.8 mL/min Low - PINF [facility] Glucose [Mass/Vol] 97 mg/dL 82 - 115 mg/dL [facility] Interpretation and review of laboratory results Abnormal [facility] Potassium [Moles/Vol] 3.8 mmol/L 3.5 - 5.1 mmol/L [facility] Protein [Mass/Vol] 5.7 g/dL Low 6.4 - 8.3 g/dL [facility] Sodium [Moles/Vol] 140 mmol/L 136 - 145 mmol/L [facility] Urea nitrogen [Mass/Vol] 39 mg/dL High 9 - 23 mg/d L [facility] Consulton 04-14-2025 Consult Normal [facility] ECG 12-LEADon 04-14-2025 ECG 12-LEAD IMPRESSION: Sinus arrhythmia LEFT ANTERIOR FASCICULAR BLOCK MULTIPLE ATRIAL PREMATURE COMPLEXES Compared to ECG 04/05/2025 15:59:31 No significant changes Electronically Signed On 04-14-2025 07:12:58 EDT by Ronal Maurice Normal [facility] Laboratory - Chemistry and C hemistry - challengeon 04-14-2025 Magnesium [Mass/Vol] 1.9 mg/dL 1.6 - 2 .6 mg/dL [facility] Laboratory - Hematology and Cell countson 04-14-2025 Anisocytosis Ql (Bld) Slight Abnormal (none) [facility] Basophils (Bld) [#/Vol] 0.1 10*3/uL 0.0 - 0.2 10*3/uL [facility] Basophils/100 WBC (Bld) 1 % 0 - 2 % [facility] Eosinophils (Bld) [#/Vol] 0.4 10*3/uL 0.0 - 0.5 10*3/uL [facility] Eosinophils/100 WBC (Bld) 3 % 0 - 6 % [facility] Hypochromia Ql (Bld) Moderate Abnormal (none) [facility] Lymphocytes (Bld) [#/Vol] 0.9 10*3/uL Low 1.0 - 4.3 10*3/uL [facility] Lymphocytes/100 WBC (Bld) 7 % Low 15 - 45 % [facility] Monocytes (Bld) [#/Vol] 1.8 10*3/uL High 0.0 - 0.9 10*3/uL [facility] Monocytes/100 WBC (Bld) 15 % High 5 - 13 % [facility] Neutrophils (Bld) [#/Vol] 9.1 10*3/uL High 1.8 - 7.5 10*3/uL [facility] Poikilocytosis LM Ql (Bld) Slight Abnormal (none) [facility] RBC morphology finding Nom (Bld) abnormal [facility] Segmented neutrophils/100 WBC (Bld) 74 % 38 - 82 % [facility] Stomatocytes LM Ql (Bld) Moderate Abnormal (none) [facility] Variant lymphocytes (Bld) [#/Vol] 0.1 10*3/uL High NINF - 0.0 10*3/uL [facility] Variant lymphocytes/100 WBC (Bld) 1 % High NINF - 0 % [facility] Laboratory - Microbiology an d Antimicrobial susceptibilityon 04-14-2025 Bacteria identified Anaer cx Nom (Unsp spec) No growth at 5 days [facility] MAGNESIUMon 04-14-2025 Magnesium [Mass/Vol] 1.9 mg/dL Normal 1.6-2.6 [facility] Comment on above: Result Comment: YARELI [place] COMMENTS:Higher values can be expected in females during menses. Performed By: #### L AB103, LAB17 ####Utility Inspector: UNA ARCE ([id number])[facility] (SBAB)[address] MANUAL DIFFERENTIAL (CELLAVI BANDAR)on 04-14-2025 ANISOCYTOSIS PRESENCE IN BLOOD BY LIGHT MICROSCOPY Slight Abnormal (none) [facility] Comment on above: Performed By: #### L [id number], [id number] ####Utility Inspector: UNA ARCE ([id number])[facility] (SB[facility])[address] [place] [address] [place] BAND NEUTROPHILS TOTAL PER COUNTED LEUKOCYTES BY MANUAL COUNT [facility] Comment on above: Performed By: #### L [id number], [id number] ####Utility Inspector: UNA ARCE ([id number])[facility] ([facility])[address] [place] [address] [place] BASOPHILS (10*3/UL) IN BLOOD-CELLAVISION 0.1 10*3/uL Normal 0.0-0.2 [facility] Comment on above: Performed By: #### L [id number], [id number] ####Utility Inspector: UNA ARCE ([id number])[facility] ([facility])[address] [place] [address] [place] BASOPHILS TOTAL PER COUNTED LEUKOCYTES BY MANUAL COUNT 1 [facility] Comment on above: Performed By: #### L [id number], [id number] ####Utility Inspector: UNA ARCE ([id number])[facility] ([facility])[address] [place] [address] [place] BASOPHILS/100 LEUKOCYTES IN BLOOD-CELLAVISION 1 % Normal 0-2 [facility] Comment on above: Performed By: #### L [id number], [id number] ####Utility Inspector: UNA ARCE ([id number])[facility] ([facility])[address] [place] [address] [place] BLASTS TOTAL PER COUNTED LEUKOCYTES BY MANUAL COUNT [facility] Comment on above: Performed By: #### L [id number], [id number] ####Utility Inspector: UNA ARCE ([id number])[facility] ([facility] [place] [address] [place] EOSINOPHILS (10*3/UL) IN BLOOD-CELLAVISION 0.4 10*3/uL Normal 0.0-0.5 [facility] Comment on above: Performed By: #### L [id number], [id number] ####Utility Inspector: UNA ARCE ([id number])[facility] ([facility])[address] [place] [address] [place] EOSINOPHILS TOTAL PER COUNTED LEUKOCYTES BY MANUAL COUNT 3 High 0-1 [facility] Comment on above: Performed By: #### L [id number], [id number] ####Utility Inspector: UNA ARCE ([id number])[facility] ([facility])[address] [place] [address] [place] EOSINOPHILS/100 LEUKOCYTES IN BLOOD-CELLAVISION 3 % Normal 0-6 [facility] Comment on above: Performed By: #### L [id number], [id number] ####Utility Inspector: UNA ARCE ([id number])[facility] ([facility])[address] [place] [address] [place] HYPOCHROMIA (PRESENCE) IN BLOOD BY LIGHT MICROSCOPY Moderate Abnormal (none) [facility] Comment on above: Performed By: #### L [id number], [id number] ####Utility Inspector: UNA ARCE ([id number])[facility] ([facility] [place] [address] [place] LYMPHOCYTE VARIANT/100 LEUKOCYTES IN BLOOD- CELLAVISION 1 % High <=0 [facility] Comment on above: Performed By: #### L [id number], [id number] ####Utility Inspector: UNA ARCE ([id number])[facility] ([facility] [place] [address] [place] LYMPHOCYTES (10*3/UL) IN BLOOD-CELLAVISION 0.9 10*3/uL Low 1.0-4.3 [facility] Comment on above: Performed By: #### L [id number], [id number] ####Utility Inspector: UNA ARCE ([id number])[facility] ([facility] [place] [address] [place] LYMPHOCYTES TOTAL PER COUNTED LEUKOCYTES BY MANUAL COUNT 7 Normal [facility] Comment on above: Performed By: #### L [id number], [id number] ####Utility Inspector: UNA ARCE ([id number])[facility] ([facility])[address] [place] [address] [place] LYMPHOCYTES/100 LEUKOCYTES IN BLOOD-CELLAVISION 7 % Low 15-45 [facility] Comment on above: Performed By: #### L [id number], [id number] ####Utility Inspector: UNA ARCE ([id number])[facility] ([facility])[address] [place] [address] [place] METAMYELOCYTES TOTAL PER COUNTED LEUKOCYTES BY MANUAL COUNT Normal [facility] Comment on above: Performed By: #### L [id number], [id number] ####Utility Inspector: UNA ARCE ([id number])[facility] ([facility] [place] [address] [place] MONOCYTES (10*3/UL) IN BLOOD-CELLAVISION 1.8 10*3/uL High 0.0-0.9 [facility] Comment on above: Performed By: #### L [id number], [id number] ####Utility Inspector: UNA ARCE ([id number])[facility] ([facility])[address] [place] [address] [place] MONOCYTES TOTAL PER COUNTED LEUKOCYTES BY MANUAL COUNT 15 Normal [facility] Comment on above: Performed By: #### L [id number], [id number] ####Utility Inspector: UNA ARCE ([id number])[facility] ([facility])[address] [place] [address] [place] MONOCYTES/100 LEUKOCYTES IN BLOOD-LUCIANA 15 % High 5-13 [facility] Comment on above: Performed By: #### L [id number], [id number] ####Utility Inspector: UNA ARCE ([id number])[facility] ([facility])[address] [place] [address] [place] MYELOCYTES COUNTED BY MANUAL COUNT [facility] Comment on above: Performed By: #### L [id number], [id number] ####Utility Inspector: UNA ARCE ([id number])[facility] ([facility])[address] [place] [address] [place] NEUTROPHILS TOTAL PER COUNTED LEUKOCYTES BY MANUAL COUNT 75 Normal [facility] Comment on above: Performed By: #### L [id number], [id number] ####Utility Inspector: UNA ARCE ([id number])[facility] ([facility])[address] POIKILOCYTOSIS ([place]) IN BLOOD BY LIGHT MICROSCOPY Slight Abnormal (none) [facility] Comment on above: Performed By: #### L [id number], [id number] ####Utility Inspector: UNA MHORCER ([id number])[facility] ([facility])[address] PROMYELOCYTES TOTAL PER COUNTED LEUKOCYTES BY MANUAL COUNT Normal [facility] Comment on above: Performed By: #### L [id number], [id number] ####Utility Inspector: UNA ARCE ([id number])[facility] ([facility])[address] [place] [address] [place] RBC MORPHOLOGY IN BLOOD abnormal Normal [facility] Comment on above: Performed By: #### L [id number], [id number] ####Utility Inspector: UNA ARCE ([id number])[facility] [place] [address] [place] SEGMENTED NEUTROPHILS (10*3/UL) IN BLOOD-CELLAVISION 9.1 10*3/uL High 1.8-7.5 [facility] Comment on above: Performed By: #### L [id number], [id number] ####Utility Inspector: UNA ARCE ([id number])[facility] ([facility] [place] [address] [place] SEGMENTED NEUTROPHILS/100 LEUKOCYTES-CE 74 % Normal 38-82 [facility] Comment on above: Performed By: #### L [id number], [id number] ####Utility Inspector: UNA ARCE ([id number])[facility] ([facility])[address] [place] [address] [place] STOMATOCYTES IN BLOOD BY LIGHT MICROSCOPY Moderate Abnormal (none) [facility] Comment on above: Performed By: #### L [id number], [id number] ####Utility Inspector: UNA ARCE ([id number])[facility] (SBHLAB)[address] [place] [address] [place] UNCLASSIFIED CELLS TOTAL PER COUNTED LEUKOCYTES BY MANUAL COUNT Normal [facility] Comment on above: Performed By: #### L [id number], [id number] ####Utility Inspector: UNA ARCE ([id number])[facility] (SB[facility])[address] VARIANT LYMPHOCYTES (10*3/UL) IN BLOOD-CELLAVISION 0.1 10*3/uL High <=0.0 [facility] Comment on above: Performed By: #### L [id number], [id number] ####Utility Inspector: UNA ARCE ([id number])[facility] (SBHL[facility])[address] VARIANT LYMPHOCYTES TOTAL PER COUNTED LEUKOCYTES BY MANUAL COUNT 1 Normal [facility] Comment on above: Performed By: #### L [id number], [id number] ####Utility Inspector: UNA ARCE ([id number])[facility] (SB[facility])[address] [place] [address] [place] Magnesium [Mass/Vol]on 04-14 Interpretation and review of laboratory results Normal [facility] No Panel Informationon 04-14 [facility] RADIOLOGY SYSTEM [facility] Radiology Study observation (narrative) [facility] ander Case Report [facility] Case Screening Location [facility], [address] [place] [address]; CLIA: [id number]; Joint Commission: HCO [id number]; CAP: [id number] [facility] Comment r5swfAQlEEUfcIYxKGGa M MjkcbFbQVKfsCSmL6Vxgn kuKTguHO4yNL1guNdnhCS jsOJsZDKxFgZjg2hql193 rIMtk7qlBEIAKQmaUYZCF Dx6vHwnV10js7R5VzosX5 6nsQMbOPO1LXRdZZOtnOC qTARuIZZ4KUApjFZxG0cw ZILxSG0cxqdwTRpnQRcaQ IYbpFA3QZGfuAWeJ4VkOK ApODspZHInaml0DhAqRj3 vdGVyeTcyMFxwYXJkXHBs YWluXGZzMjAgUGxlYXNlI ZYaINIgj4JuU6vnoUTnMF PuUBMbd6RxXPL8rQ3gu4s 4VRHfKRRmfZPbHCqDKgN7 NUDfITAvmOHeFqp3TEV9v RYpCXLoXQj7sK9kWSwtj7 9tf1SsZwuaFBT1 [facility] e4onvCGsNNUkmUWcHeOp M VCkCUIag1jwMZOoyWPhZb EwMzNcZnRuYmpcdWMxXGR pLxNza4uxz405pCUkk6bx YQKlJdX6hPOyUHUhO64jS PGRI765ELSaZHepe1wcn3 MjMPDicMIws4B6FNHQTJg qWASEXUf6jXpxV71xv3G9 IuciO7jgODQtNYPnZ1ThH V7gKXIfLsq1FKV9DLA6FK LdSUKxE4NhAT1iBDWhkYO rIIl0u0hrnHkwGLLiUYV8 f7uqNDvarzTtHH3wqh5ob Rv1g1crjfOfHAXhMIMwrF GGBVFwC0HuqSqfNv4voOb 9lFphQejaVKY1Udu9EV1u ly79qml8yQmxSZKuyewrX xA2KXxlAGQqrohhOMt9GV ipHMJfpDM2DFCwkSYxI2K oNUWdEP3yeot0TPT1YOrt JKKlLaZ3TWGmyVHzGMFfb GgeLSqhb033SXJ1LoDjHR 0aV9Drr4D0qW4fvYTyOPM ieBKgRpUuSPQkbv1bmJJr PMkjp2PlLLO7yiD8yVIvi LAyAEYqTV95Wwxxs0XnKa rjKVZ6QQFxutIws7Eat3b dWdKhylQaE2wuV7NdXIUt GXJdKVIgAyPdlkFxy6Hmm 5CfbINgaGy9c7yuQJLfMS QlbBguj6ceBLD3OFApR4R 9hIWao5ypEFxyHGSbwVW2 juM7HVNvwSSaL7KncQ6tA MItGC9jwfl2r6mzKUI2QQ erAPFxKeD1duF3KDJtbPB bTIMmqXxqULymp325LKK5 NjPwEZVat9TyG1DkiFgfY 69gfEhfB64kNZSwbLavxP 4bqXoctH3lUmSoOzCfEZx xbFxwbGFpblxmMVxmczE2 JRmwsbhdHVMkDZgyM7abK zDwMXSibFisERruy8MlGO QfFCEoRNXbFXuxQ2qbgB6 sxfmuJLsnLFCjmIiky1pt YtPmnZM2CI8ytrZhGOFac RsjidJ5goZwvTfepV9fgU 3ivPvvgI9tiSKgjAD2fzd sIGluIHNpdHUgaHlicmlk uJrwoEzkbgszyL0dEFL3r QWbFVE1sHNuJQJpSUKiKW PlgA10rm6utMWzkoRhC4C hJ5OuwCTfeYgmDkotiMGl uOGwPy1ujMKiCH6dDREmu YIdV6KtOT2bVRZfwzdvIH IgVGhlIHVzZSBvZiBvbmU ty0EepL1rUBPyHCSbGY60 njNwkjF3kQMfCTAfhwYzm GVzdHMgaXMgcmVndWxhdG XgLPYvIXKqAQErCIi1mHM sl7PzG7yjeTGgobLeA2Tr ySMkNQXNSM3tEBwpi8Vga OKfhNImv3MlEZGyPSQfpR 8lXEPhLS2lCUWnXVkkDPH fatCjzi4gblJlYRNjNSPr E6BdqkokiWygleBsUGZdr i0nauCmHFS3RPLkJQJyaZ dkxRYgpAHbCFTokmK0q8C yCRPya8QnT3FlsTDuCZXj zQQcNJA5s1AdxY6zTBxla XQwEVJsZO1aiABmMVMpXH NsZWFyZWQgYnkgdGhlIFV TZUUin3BnTR8dZRYxuXtt MVTdsD0sw6MgZCSya47tL EZEQSkuIFRoZSBGREEgaG FzIGRldGVybWluZWQgdGh joJUzsWHbOCIvAMDbDR8c JOYrwzKsdDBpd7FnnSBub iJke5RzrzXnQGRuASC2Wv BccGFyXHBhciBBbGwgaW1 dpU6sl6TidN2iPRhuluPs dOZeNs7evRAwPC0dWCWfv mFmZmluIGVtYmVkZGVkIH Fki5V9OY9gYQHqsy8leid zrCVhwV1ayVZerwVfIS7m AA2xW4Z9xRJoQQJhyzXut 8qsOEt9yRQwKRZmrHFtwZ TdOpdhNXL4ZYSbMEK1ylQ xadWkEUMyaYlpdRX6hNZh LWQuWSReLXHhZH71Q2Mhp 6BvW3tuIX53NFBdFZYzFV GxrcZpn2psYDCmy0ykHLI duABtZ7FiZCXzpBOdezpq HdKjPCY9YDTxCRI1oIJiK CXkI3WtyGKvdWEvkQ24ID 1igSN4QZ4zBFY6SHmkbF2 kFtYYcO20bf0lkZE1l4Sj PV1tG6GcTTRii8X1icQoS CSlER4ycVPhYCFzVVXctH lkYXRlZCBvbiBkZWNhbGN oFmaiDNZ2pPPgiITpKdTY IVT0eKYjHGVht2JkHQMsH OAxatMfzuWpRYNnXEX9aC ZxIHJeyTCpl57iK4l7CG3 kwCqaWJAklAGjERKwb2Zw mXIzdIx2dAAxNoTvGElwJ XWvNBgutUm3tNE6VH2rAY GjJ7IhC2usnJKfIDWiKDC meOCgej9uvBNzlB== [facility] e6lpiZIvPNNtpSSZVTPg M XLdCC3qcTbubPf9qRfdEJ JtcaK8vYFiLSais8fwQIU 4b3nzzpYDZoqyVPEkBS0n IQvqFGBrKK8fRwClCIRxO mYxXHBhcGVydzEyMjQwXH DqbZPtgXI3PASwGR1catr qBSfsNKwiNKEydyX0DRQj zUBqN2PuERSnSL9wsaosG IH0VXRFHqlhTs8nfKYupW ANCntcZjFcZmNoYXJzZXQ rSNOai0suriTLbzqpiGr3 HXz0MXVrHHDacMRzn4X5Z Puqo5vjy1DyK9Hxx7GoJX a2iM0PFugmM13bt1V8Khm 1ZNGmVQm9EIkcQNAdOQMb Eep8WWp0M9fwILWcTHkeC ZZzEIzyqFWyTQx6AHnql8 TvrTSpTCp4CVylVFIiK0F cB5NzDRxgQgBnHPydAYSa PFZnNOgjDONnL4MHQZExD eE1SkD0LWDpDXy4PBmgXx DADVY2NUj7CuP5KBk4MAW dYE8rBTijfKIsERteUilh JSctU413HEuvXKHfT7KmG 3QgXFxzZyBcXGlkIDUxMD JwJBaqOQKhB3QBWOGlEyW 2PpC6PGFzGQx5ZGosR2ZF IMLgEDT0VAN1NlXlSqI4C Kx7ICBNXt7ePUB5REN5VR khXWB7NHTcAAblfqihACn 0IDIgXFxzcyAzIFxcZmwg SVqvC42tbQVyIFPMVxlzl GFpblxlcGljTmVzdERvYz RfYYyreZCyzAMxPM1UYMj 0cmNoXGNmMVxmczIwIEEg TIYXmOJ1ruHtQWGsira2d WtgAkogfOR4HTFxKPLsNL qrXYSfTMz8IQCpzYhpAQV cr1FrS3N6RWLuMZcwx5bh FCXwIRqal4UdATuLGURKL D7OBX0aeSH2DQrULMUYM0 wRbGQuEUYgC4bmwKM8m7j stRYad3s2HQtbNKP0lWZs o0TvfCuuQutmbWG4NEnoD oljeU4ecFPYIGWAIzcQVg ukwtAaSL7UDZDZZG8UaAE qDSWjJ8cifMS6u9bgyJEm o5u8NEbaZOM1fNhdeMNbb lxsdHJjaFxmczIwICBccH NroLYxwCvtXijtqXZ7PVy qRmzzgL2vwMUANHRQVjkF TkvkbvEnIT0MKYDKCvKIQ I66PQF6UVQ9gKH7Ap68ST UpVGXwkAFrNOieB264l2P ywycos6tmaBTwCQqmGlll yGSftkX0DPnIQMFFGDzIC gIdPL7hWCdJJ6VYDlO5UG L3JAF0mGR3Of14USAcQNA tdFQsSGwfA406IEMnWCby PEl9lrXwGHVvGsPzCDFbd PtlUFBiB5HttvDdEXfyhc 91YSS2v5tosVTnBFfiAfm hjLIaqhX3XAdGNSTMJJbA DfWgZT0yCGgRM3XCKFyOG beqYJdjQwJ1P6pqeOmaSx ounqBpyEItDlSJwC5nbvP pcNjfDcufhTY0YWflGzxf gI2awUIEAYCGGcrXUmorw bInUP7WQRMJAW9KhHZhEH SvEUmuaYU1d0bsyQIzn2m 9JLgsDPI2bImruLMfkxjp mQYzfPpypiRnAQ1oNJFrf iANClxiXGNmMiBNYXRlcm omoNNyNKHljOPxKRE7HND fSNKfSRYeVTCcaQ5UqcJc IGFuZCAxIENlbGwgQmxvY 5czsxeokASpBP1UKCGxat ANClxmMlxmczIyXHBhciA WBcorICOlEOJcyJGDc9Ws RFSXDas1UD5QEKMuPAKiz KYZUTZ2OO4hOJhtILWhP7 PgV4TrpoW3u7ykpNxno9W kyDDoJL5ohWSoZG4UYOPq unDiQSmgtFlenZ7yKId6 [facility] Pathologist Interpretation Location [facility], [address] [place] [id number]; CLIA: [id number]; Joint Commission: HCO [id number]; CAP: [id number] [facility] Pathology report final diagnosis Narrative e6hafEBvEZUqjTOaPNHmB LmmirMbLCWplGTmW5Pyyf flRRwoVA9gRM2yeAgkvZW ciNSuGATaYvXow1rgx306 yBVis4ecPPCFOWvxYJVKX Ib9vHulT34es6X9GwxlU5 caJHY4FQzifoAqrbb9BKB wpNX5KBy6HDZydXZdusVq KyDiBOBwkSAwwWD4IBAcG L8lpjvnGWraZEkhZDLesj R8GIRmeQFnS7BzQEUjEN2 qimjgJAI3ZDjvQDCxRMO0 EnEtFBXun2Fdnhj8XdEro GFyZFxwbGFpblxmczIwXG NmMSBBICAtIFBsZXVyYWw wC8O2eXY3KIYRfRrnyJBs JSMqFLtyFde3bBBuJUU8m V6qj4p9WpxjVlHpZITpfM OfBQ0COI9NTUnGCbTYDPC DRUxMUyBJREVOVElGSUVE UyinPUXlEaTUT2EPYnCyF 1KREZNGBRYRF1JFArxbFN PnCM8ubRPmwKV1pK9kMMF yZXNlbnQuIFxwYXJ9 [facility] [employer] CV EPIPHANY [facility] Atypical Lymphocytes Manual 1 [facility] Basophils Manual 1 [facility] Eosinophils Manual 3 High 0 - 1 [facility] Interpretation and review of laboratory results Abnormal [facility] Lymphocytes Manual 7 [facility] Monocytes Manual 15 [facility] Neutrophils Manual 75 [facility] No Panel InformationOrdered By: Marianna Francois on 04-14-2025 [facility] [employer] Work Phone: No Panel InformationOrdered By: Danyel Platt on 04-14-2025 Case Report [facility] [employer] Work Phone: Case Screening Location [facility], [address] [place] [id number]; CLIA: [id number]; Joint Commission: HCO [id number]; CAP: [id number] [facility] [employer] Work Phone: Comment v3qmmBCvUZMwrGKrXHWd M EtkvrPoBIYztYGoG9Mwaf ohQBcpIR3sTW8qaYphbNC rjXDzKXVzUeJzr8kgr744 iRTyc3nyEFUOVLwsZAFRH Ou0mUflZ71wu9O3HbwhI5 4iuYVlKDY5ERXrENMgaDN jCUXmPVY9RNDxhYKzR0cm FRYvVW3gihdxDFskKXblP MFraSJ9WQHaaVUmJ6HsSO YoMBppNOGhwqd5YvNfMh9 vdGVyeTcyMFxwYXJkXHBs LMjlLUCrXtDmSI9rdX4az YbcaK6saUVwgPS6kbrpVO wphIniE94uhOCwkZP9YOR XEoJzhfBaZ4HatoL3bE1n biBoaWdobGlnaHQgbWVzb 9YzNAncHBafU4UnhZArSN BCRVIgRVAgNCwgVFRGLTE qYIJRPEudBZ8wQXOGIqCh BINwHP3iI9O0nVCkRfFcQ 2ZlMfLdsRrypXwmM8j3rq GfiK3faz27pcIhXESco5Z dVXmzcv1boXPheY== [facility] Work Phone: Disclaimer e5mtfXVzZXKkwEPbQqWc M VYmODOfc0osPZHjtBNbFa EwMzNcZnRuYmpcdWMxXGR oWxWxx9ygq112vTQyy2lu IRBhGjJ1vPQwVYTgK90hM PYJP230HLNxESdja6nvq9 HeIQAbxRHvz7H6UZDXJKg dEMQVSVq8aNpjO13iz1R3 ExwdL5hhSAZeWVObD8EjC C1vVHNyPcq6ZWC9SFD2SB JgVMJuH7LzXQ9kKEUypCZ wHQc7t7aixLliBAUxXRE4 s6tpPVkdrgHvRL5huo3lw Wx9v2pwnfYiSCFeXJQntK DOAPBjV4KtwIjqYd6ubVf 2dEtwHepxYEV9Czm1OM4b yh88tgr7fXtfCIPxrwrkF aM6TYnzXFCyehbqXNb9JX xyDRDjiGH1IDMefUMlI5I sHLKaZY4iwot2FSK6BEyk BCWuTgB8GVMxkUFtPNHdx TxqUPafe036KBA6ZtTzUT 4hL6Geh8E6nS1iyUSaEVY wrYPySrTeKSWrgc3xwVQu DLlmr0QoCQC7ylK4yLBqg RKeYDNiEM68Tcwxp1UiXl qkOFQ7JVEnjiXxo3Cra2j nUcPpahFgU1tiY7HoHEEu JXLgFWDpRwLlhvAyf3Ypk 0FiiMAneEz7p9ipRFZcTH IxfXids9bqAML4EQIbO0P 7mYFkb7haRSrvXIJflXJ5 czX7UUWvqIOcV2BglC4vZ AQoOA6arhj3v1bqJJM4PW qvIFEwWpN5hkP1ZABohSA oNZEpdLtwIWxid463SDP2 OxRzQMLtn3GqA0VdlLzlU 12bqCyvB31vXLUkgTnbsK 6cvLuzoB8wNgSlTwGeHGy xbFxwbGFpblxmMVxmczE2 VEimqnhzPXZuFGdmJ9vtM cUzVOFjiIorNOkuf2XfMM YqFEWaBEFhLHsxJ9zdmE9 kyynwUGscXOPviLlrm2lr RpRrfMP6QK0mwaLdJGYqg RnpojN9zsIjpDcfmL1lsU 3hjNzqdN7egYBlxEA3wgi sIGluIHNpdHUgaHlicmlk bTuttWvnfpwhnD3aORZ2y DEoOOH4bFYqHBXsHJHjXQ YfqD11qn9jbNXipzPyU3N oB7FfpDSdhOddPkqjfXHl pOOvXp6boOWeHN1gVHGtu RUkO6CsTT3nSFSayeecBO IgVGhlIHVzZSBvZiBvbmU rt0KwpN4nGPVbESEoHU88 guNwsiQ7rSMlAKJwkgIoc GVzdHMgaXMgcmVndWxhdG ZpWRJjSBTyMDHyHGy3cCZ nj4XgS0uhjCGdtdXgY6Yo vKKtCJUVQP3yGSgst1Vws AEnwWAxs6UgETHxBCJsrC 2cILKjEY9zVWUhRXigIOS urgKith2gxnRkTEKrHEEz Q7SvqpaqaOxpyzUcGOOxw x7usiNjMJY9BKCgYQHesG umuCVbjEFhBUUnclB3o2P jOWEqb0UwA1VzwFIpTPDh xOVdHCP5w0PuaN7dHFyxv MOiDHFkOV4bhBGwRRNfRG NsZWFyZWQgYnkgdGhlIFV GBSTul1CsDH5sLETcgFlr NMWbyI2tc9JzGTPhe45gQ EZEQSkuIFRoZSBGREEgaG FzIGRldGVybWluZWQgdGh idYFmxPDyJKYoMDKpGO0x BLRmooPiuIZvs6IfcIYhr vJbm0PnjgBiRNKiFGZ6Xa BccGFyXHBhciBBbGwgaW1 cjV9cd0HpuW7pJOtftaTu aBWmKt8xkZXoWW3rUGIzl mFmZmluIGVtYmVkZGVkIH Ehv8N0YX3lHAQxcp2muyd xmSXasS7oiAJpxgPwMO6t HA2kU3T5rCBhQPAxygQdl 8orEPa6lZKsPSPbvWKdwN DySrlwVOQ1NMXpKVS4zsC wamNyLOMtnPvhkVR2dIFg SBWhBSXwDXAdGY33O2Tye 3WsR4gvAO34HJEvAGPsQX EywvZtr0fsPQXau0hvFYC wzATtD4HpUSTycIZycgqv WeIbKCW5POBnOON3lCZwS NPjM9HxeSLlrSVbkA79YV 5zhNL4FI0eONY3DRtuyG2 oJzXTdH68xb0jyGK6p6Cy QQ6iX4MvTNRsa8E1tgPhH QRyPV1haZWfJNHfZADtrZ lkYXRlZCBvbiBkZWNhbGN yKggoRXX2zXPvdDNsRlJE TSK7iVShZHMey4KiKJFiC IQaogJlwmBcOHFjVVP9fZ GaKFUarFYpx60oS4h4FW8 vjHufRPVslXIoPXRyc7Mm hRCozRa2iFRrCuDqSYljF HBwGFqrqYc7fEQ4BS1pLF CqP4KaX4vneHGaSSPxOZM weSSnym5tsWHeyS== [facility] [employer] Work Phone: Gross Description k3sptEYfDEMaxESVZHCh M OEvUQ7fqFqqpFh5mQrbSF AmuuA8aHNfMMhdf3ykJRP 5l5srpsNANsjhSALbFW1c SDsoIIUbDZ0yNjGlQIOzB mYxXHBhcGVydzEyMjQwXH CjdAJmoAW6CYYnUO0bswx eYNgyHHywTZOnicL8MJPo fSFpW3TjUWRyNS3onwffC PX8TXAAWzlcWj1qrYAtzC ANCntcZjFcZmNoYXJzZXQ zFDHtd2joyeTWrcbloMv1 TEa5HDVvOTVsoVHks9O8P Saca5zxp0GpE9Dgt8JqWZ t3tM0RZvicR63sp0Q5Hvt 5QJOoRIj2QBwqNWUeDVEj Uar4UJe7J0noCAFmYQhgC VMiMPqlsXDxOQo2HTzyy0 PebXJcJYx2QTnxOUGjX0T nZ7ZtCJhqSaRtMBjzOUKf LBUsEBmjBCFcO0PHTISnJ pN0NNr0TUWuHGr3TVrjWl WDRXU1OAF9RxX6BPc2JQR zBZ8qFIpqeWTrUPynYrbk AZwuJ772EKyfHCQnX2NaV 3QgXFxzZyBcXGlkIDUxMD DnSAucUUNcI0TQCTYfXuW 3KQr1CMBcRUz9XDkzE1VB JLXiFCI8RWW3QhY0LmB5O Hh0HBBZSc2zYLH4Vmk9Gv t5QQB6IPOhJWttcdtuSGd 0IDIgXFxzcyAzIFxcZmwg TXahX48txBAdMQFMUhzyi GFpblxlcGljTmVzdERvYz FpDChnhSAnbGEcGX1GESs 0cmNoXGNmMVxmczIwIEEg EWFVvPW4aiStIXCmbzv6f YivZSWfvZpeI6AoLXWmHK BhciANCjEwMDAgbUwgXHB oq8NeK9Z6HHDvVBhsh1un KAPkMXscx7EcNIjLCZDRO M6KOU2yjLU3VNjFZUPUB4 kHoQFbZXPpX8ulcTB2c9t qrLBka8z6XCshJEQ8jWJi t5OldDokOfxadBJ3BFnxI oezwZ6kiHCDLPRMNbuJWf srprViPG2REDDNAT9NxQM yYNMtM1xtiZG4z3oxbBQp z9u2NFaaOSV4nPlqqPUre lxsdHJjaFxmczIwICBccH OnxTJnnNhdWocvvLS2RAg lRyvtqB3udOLQTFNWRepY TgaildCbRH9WOLXBKnLYU W85ZFZ9MBK9pPE3Us94PX CaHCJlhTSwCUjwJ988jOB cgH76b9sqjWZnITawKozi wFSahkV6XWxXXAXGIGeBK hSbLC7vLPjVC3VPGpL8UW I7MPE4tRM7Ru73SHUdBFM ltUQhFFeoX282PBNhXXxp HOl2beXoDRVaWaApEQSec DsgKLMiH9EtleGlQEaadm 74YGU1m2yqpPJjSXumBpa kgEQckuN7RYmWFYIODMtU RzLdOD4vGIwTB9QXAOaSQ jkyASgkDtL6D7rgfJyaCy ylwnTkxEDhEuHJkE2bgiS ajDfpKuypwHF3RFsbIrtf iT9yyNVCJKJLKneVWcspm qCmSK3MUITBSL9BfIJiZP ZkVOiyoDW9d8ortNMvg8l 9BKfxXQD3gUarzDKlkuvs qZIouMgpgpXzCZ7uGNCoo iANClxiXGNmMiBNYXRlcm dndFBjDWOilYHvHVS5HXF jHEWjYLEzHOUmhE9HtjBr IGFuZCAxIENlbGwgQmxvY 8qcnefcqVQxYM4CMMHbmd ANClxmMlxmczIyXHBhciA ETlqcPNMrTWKanXYZo3Vu WRANChw1OX0XCILsFIZfn GDZZXS4HO3oKMikAHCkT6 QmM6ObsqH4k0mzcGvcv7L hxPHsHJ7rsNNkCR6NKMQc clVqRCifyAxiuW8oVQc1 [facility] Pathologist Interpretation Location [facility], [address] [place] [id number]; CLIA: [id number]; Joint Commission: [id number]; CAP: [id number] [facility]: Pathology report final diagnosis Narrative z1quoYAvKAOuaTYcQTKwS UojyiRxNFTsxCImZ2Bthv paPLkvFZ7tQT5npYnczZO iwAFfCEUkRzFwo6fgs154 pNVxm6fwJDFPOZnrQZFWP Pc4xUhrR58qv1S6JqvoS5 ugVGV6UVxzczMhgfi8EIZ seLX4WTa5DNXfvBFysrBe JdSnTYXsqXKyjFN6EQGbH I5igjieDXsyIOyyDBKtdy G5AGXtwTCuJ9XnVKTzXU6 fozitKVF3DCuhMTChPUH6 EdLpSDTpd1Vzkrw8BvXsu GFyZFxwbGFpblxmczIwXG NmMSBBICAtIFBsZXVyYWw oT4K9xIE0ETTUAOV1IS7m Fa5igRRGwZXfKEtfI0f6x 7fdB4u8WLVxVSPiDHxmPK YcRg4vEOCBBBbSEB2OHFZ WCHeTXDuVUJ6FLYYDFQCq XHBhclxwYXJ9 [employer] Work Phone: [employer] Work Phone: No Panel InformationOrdered By: Ronal Maurice on 04-14-2025 P Douglas 44 degrees [employer] Work Phone: PA Interval 134 ms [employer] [facility] Work Phone: QRS Douglas -35 degrees [employer] Work Phone: QRSD Interval 117 ms [facility] Work [facility]: QT Interval 390 ms [employer] Work Phone: QTC Interval 450 ms [employer] Work Phone: T Wave Douglas 78 degrees [employer] Work Phone: [facility] Work Phone: Nursing Noteon 08-06-2025 Nursing Note Normal [facility] Progress Noteon 04-14-2025 Progress Note Normal [facility] Normal [facility] Progress [facility] Normal [facility] Progress Note Normal [facility] Progress Note Normal [facility] Progress Note Normal [facility] Progress [facility] Normal [facility] US GUIDED THORACENTESISon US GUIDED THORACENTESIS Normal [facility] Vital signsOrdered By: Jake Maurice on 04-14-2025 Heart rate 80 /min bpm [facility] [employer] Phone: XR Chest Single viewon 04-14 [facility] RADIOLOGY [facility] RADIOLOGY SYSTEM [facility] XR Chest Single viewOrdered By: Anthony Christian on 04-14-2025 [facility] [employer] Phone: [phone] 04-13-2025 [id number] Normal [facility] BLOOD GAS ARTERIALon 025 AMOUNT OF OXYGEN 2 lpm Normal [facility] Comment on above: Order Comment: Pleas e draw tomorrow AM after using BiPAP. Thank you! Performed By: #### L [id number] ####Utility Inspector: UNA ARCE ([id number])[facility] ([address] Base excess Calc (Bld) [Moles/Vol] 11.7 mmol/L High -3.0-3.0 [facility] Comment on above: Order Comment: Pleas e draw tomorrow AM after using BiPAP. Thank you! Performed By: #### L [id number] ####Utility Inspector: UNA ARCE ([id number])[facility] ([facility])[address] [place] [address] CO2 [Moles/Vol] 39.9 mmol/L High 22.0-28.0 [facility] Comment on above: Order Comment: Pleas e draw tomorrow AM after using BiPAP. Thank you! Performed By: #### L [id number] ####Utility Inspector: UNA [id number])[facility] ([facility])[address] HCO3 (Bld) [Moles/Vol] 38.1 mmol/L High 21.0-27.0 [facility] Comment on above: Order Comment: Pleas e draw tomorrow AM after using BiPAP. Thank you! Performed By: #### L [id number] ####Utility Inspector: UNA STAUFFERMELANIE ([id number])[facility] ([facility])[address] Hemoglobin (Bld) [Mass/Vol] 11.3 g/dL Low Screen only [facility] Comment on above: Order Comment: Pleas e draw tomorrow AM after using BiPAP. Thank you! Performed By: #### L [id number] ####Utility Inspector: UNA STAUFFERMELANIE ([id number])[facility] ([facility])[address] [place] [address] OXYGEN SATURATION (%) IN ARTERIAL BLOOD 95.1 % Low 97.0-99.0 [facility] Comment on above: Order Comment: Pleas e draw tomorrow AM after using BiPAP. Thank you! Performed By: #### L [id number] ####Utility Inspector: UNA ARCE ([id number])[facility] ([facility])[address] [place] [address] PCO2 ARTERIAL 59.2 mm Hg High 35.0-48.0 [facility] Comment on above: Order Comment: Pleas e draw tomorrow AM after using BiPAP. Thank you! Performed By: #### L [id number] ####Utility Inspector: UNA STAUFFERMELANIE ([id number])[facility] ([facility])[address] PH ARTERIAL 7.426 Normal 7.350-7.450 [facility] Comment on above: Order Comment: Pleas e draw tomorrow AM after using BiPAP. Thank you! Performed By: #### L [id number] ####Utility Inspector: UNA ARCE ([id number])[facility] ([facility])[address] PO2 ARTERIAL 79.2 mm Hg Low 83.0-108.0 [facility] Comment on above: Order Comment: Pleas e draw tomorrow AM after using BiPAP. Thank you! Performed By: #### L [id number] ####Utility Inspector: UNA ARCE ([id number])[facility] ([facility])[address] SOURCE OF OXYGEN Nasal Cannula (LPM) Normal [facility] Comment on above: Order Comment: Pleas e draw tomorrow AM after using BiPAP. Thank you! Performed By: #### L [id number] ####Utility Inspector: UNA ARCE ([id number])[facility] ([facility])[address] Bacteria identified Aer cx N om (Unsp spec)on 04-13-2025 Gram Stain Result Rare Polymorphonuclear leukocytes per low power field [facility] Gram Stain Result No organisms seen [facility] Bacteria identified Aer cx N om (Unsp spec)Ordered By: Bianca Daigle on 04-13-2025 Gram Stain Result Moderate Polymorphonuclear leukocytes per low power field [facility] Gram Stain Result No organisms seen [facility] CBC W Auto Differential pane l (Bld)on 04-13-2025 Erythrocyte distribution width (RBC) [Ratio] 25 % High 11.5 - 15.0 % [facility] Hematocrit (Bld) [Volume fraction] 28.2 % Low 40.0 - 52.0 % [facility] Hemoglobin (Bld) [Mass/Vol] 7.8 g/dL Low 13.0 - 18.0 g/dL [facility] Interpretation and review of laboratory results Abnormal [facility] MCH (RBC) [Entitic mass] 23.2 pg Low 26. 0 - 34.0 pg [facility] MCHC (RBC) [Mass/Vol] 27.7 % Low 30.5 - 36.0 % [facility] MCV (RBC) [Entitic vol] 83.9 fL 77.0 - 99.0 fL [facility] Platelet mean volume (Bld) [Entitic vol] 9.1 fL 9.0 - 12.7 fL [facility] Platelets (Bld) [#/Vol] 276 10*3/uL 140 - 440 10*3/uL [facility] RBC (Bld) [#/Vol] 3.36 10*6/uL Low 4.40 - 5.9 0 10*6/uL [facility] WBC (Bld) [#/Vol] 12.7 10*3/uL High 3.6 - 10.7 10*3/uL [facility] CBC WITH AUTO DIFFERENTIALon 04-13-2025 Erythrocyte distribution width (RBC) [Ratio] 25.0 % High 11.5-15.0 [facility] Comment on above: Performed By: #### L [id number], [id number] ####Utility Inspector: UNA ARCE ([id number])[facility] ([facility])[address] [place] [address] Hematocrit (Bld) [Volume fraction] 28.2 % Low 40.0-52.0 [facility] Comment on above: Performed By: #### L [id number], [id number] ####Utility Inspector: UNA ARCE ([id number])[facility] ([facility])[address] [place] [address] Hemoglobin (Bld) [Mass/Vol] 7.8 g/dL Low 13.0-18.0 [facility] Comment on above: Performed By: #### L [id number], [id number] ####Utility Inspector: UNA ARCE ([id number])[facility] ([facility])[address] [place] [address] MCH (RBC) [Entitic mass] 23.2 pg Low 26.0-34.0 [facility] Comment on above: Performed By: #### L [id number], [id number] ####Utility Inspector: UNA ARCE ([id number])[facility] ([facility])[address] [place] [address] MCHC 27.7 % Low 30.5-36.0 [facility] Comment on above: Performed By: #### L [id number], [id number] ####Utility Inspector: UNA ARCE ([id number])[facility] [place] ([facility])[address] MCV (RBC) [Entitic vol] 83.9 fL Normal 77.0-99.0 [facility] Comment on above: Performed By: #### L [id number], [id number] ####Utility Inspector: UNA ARCE ([id number])[facility] [place] ([facility])[address] Platelet mean volume (Bld) [Entitic vol] 9.1 fL Normal 9.0-12.7 [facility] Comment on above: Performed By: #### L [id number], [id number] ####Utility Inspector: UNA ARCE ([id number])[facility] [place] ([facility])[address] [place] [address] [place] Platelets (Bld) [#/Vol] 276 10*3/uL Normal 140-440 [facility] Comment on above: Performed By: #### L [id number], [id number] ####Utility Inspector: UNA ARCE ([id number])[facility] [place] ([facility])[address] RBC (Bld) [#/Vol] 3.36 10*6/uL Low 4.40-5.90 [facility] Comment on above: Performed By: #### L [id number], [id number] ####Utility Inspector: UNA ARCE ([id number])[facility] [place] ([facility])[address] [place] [address] [place] WBC (Bld) [#/Vol] 12.7 10*3/uL High 3.6-10.7 [facility] Comment on above: Performed By: #### L [id number], [id number] ####Utility Inspector: UNA ARCE ([id number])[facility] [place] ([facility])[address] COMPREHENSIVE METABOLIC PANE Anant 04-13-2025 Albumin [Mass/Vol] 2.2 g/dL Low 3.4-4.8 [facility] Comment on above: Performed By: #### L AB17, [id number], [id number] ####Utility Inspector: UNA ARCE ([id number])[facility] [place] ([facility])[address] ALP [Catalytic activity/Vol] 52 U/L Normal 40-150 [facility] Comment on above: Performed By: #### L AB17, [id number], [id number] ####Utility Inspector: UNA ARCE ([id number])[facility] [place] ([facility])[address] ALT [Catalytic activity/Vol] U/L Normal <40 [facility] Comment on above: Performed By: #### L AB17, [id number], [id number] ####Utility Inspector: UNA ARCE ([id number])[facility] [place] ([facility])[address] Anion gap [Moles/Vol] 10 mmol/L Normal 3-13 [facility] Comment on above: Performed By: #### L AB17, [id number], [id number] ####Utility Inspector: UNA ARCE ([id number])[facility] ([facility])[address] AST [Catalytic activity/Vol] 25 U/L Normal <34 [facility] Comment on above: Performed By: #### L AB17, [id number], [id number] ####Utility Inspector: UNA ARCE ([id number])[facility] [place] ([facility])[address] Bilirubin [Mass/Vol] 0.6 mg/dL Normal <1.2 [facility] Comment on above: Performed By: #### L AB17, [id number], [id number] ####Utility Inspector: UNA ARCE ([id number])[facility] [place] ([facility])[address] Calcium [Mass/Vol] 8.1 mg/dL Low 8.8-10.0 [facility] Comment on above: Performed By: #### L AB17, [id number], [id number] ####Utility Inspector: UNA ARCE ([id number])[facility] [place] ([facility])[address] Chloride [Moles/Vol] 93 mmol/L Low 98-107 [facility] Comment on above: Performed By: #### L AB17, [id number], [id number] ####Utility Inspector: UNA ARCE ([id number])[facility] [place] ([facility])[address] CO2 [Moles/Vol] 36 mmol/L High 23-31 [facility] Comment on above: Performed By: #### Gilbert AB17, [id number], [id number] ####Utility Inspector: UNA ARCE ([id number])[facility] [place] ([facility])[address] Creatinine [Mass/Vol] 1.46 mg/dL High 0.72-1.25 [facility] Comment on above: Performed By: #### L AB17, [id number], [id number] ####Utility Inspector: UNA ARCE ([id number])[facility] [place] ([facility])[address] [place] [address] [place] GLOMERULAR FILTRATION RATE ML/MIN/1.73 SQ M.PREDICTED 45.7 mL/min/1.73m*2 Low >60.0 [facility] Comment on above: Result Comment: Calc ulation based on the Chronic Kidney Disease Epidemiology Collaboration (CKD-EPI) equation refit without adjustment for race Performed By: #### L AB17, [id number], [id number] ####Utility Inspector: UNA ARCE ([id number])[facility] [place] ([facility])[address] [place] [address] [place] Glucose [Mass/Vol] 94 mg/dL Normal 82-115 [facility] Comment on above: Performed By: #### L AB17, [id number], [id number] ####Utility Inspector: UNA ARCE ([id number])[facility]ZUNIV[facility]OSPITALSMar[facility] (SB[facility])[address] Potassium [Moles/Vol] 3.4 mmol/L Low 3.5-5.1 [facility] Comment on above: Result Comment: [facility] potassium values may be up to 0.5 mmol/L lower than serum values. Performed By: #### L AB17, [id number], [id number] ####Utility Inspector: UNA ARCE ([id number])[facility] ([facility])[address] Protein [Mass/Vol] 5.8 g/dL Low 6.4-8.3 [facility] Comment on above: Performed By: #### L AB17, [id number], [id number] ####Utility Inspector: UNA ARCE ([id number])[facility] ([facility])[address] Sodium [Moles/Vol] 139 mmol/L Normal 136-145 [facility] Comment on above: Performed By: #### L AB17, [id number], [id number] ####Utility Inspector: UNA ARCE ([id number])[facility] ([facility])[address] Urea nitrogen [Mass/Vol] 37 mg/dL High 9-23 [facility] Comment on above: Performed By: #### L AB17, [id number], [id number] ####Utility Inspector: UNA ARCE ([id number])[facility] ([facility])[address] Comprehensive metabolic 1998 panelon 04-13-2025 Albumin [Mass/Vol] 2.2 g/dL Low 3.4 - 4.8 g/dL [facility] ALP [Catalytic activity/Vol] 52 U/L 40 - 150 U/L [facility] ALT [Catalytic activity/Vol] U/L NINF - 40 U/L [facility] Anion gap [Moles/Vol] 10 mmol/L 3 - 13 mmol/L [facility] AST [Catalytic activity/Vol] 25 U/L NINF - 34 U/L [facility] Bilirubin [Mass/Vol] 0.6 mg/dL NINF - 1.2 mg/dL [facility] Calcium [Mass/Vol] 8.1 mg/dL Low 8.8 - 10. 0 mg/dL [facility] Chloride [Moles/Vol] 93 mmol/L Low 98 - 10 7 mmol/L [facility] CO2 [Moles/Vol] 36 mmol/L High 23 - 31 mmol/L [facility] Creatinine [Mass/Vol] 1.46 mg/dL High 0.72 - 1.25 mg/dL [facility] GFR/1.73 sq M.predicted (S/P/Bld) [Vol rate/Area] 45.7 mL/min Low - PINF [facility] Glucose [Mass/Vol] 94 mg/dL 82 - 115 mg/dL [facility] Interpretation and review of laboratory results Abnormal [facility] Potassium [Moles/Vol] 3.4 mmol/L Low 3.5 - 5.1 mmol/L [facility] Protein [Mass/Vol] 5.8 g/dL Low 6.4 - 8.3 g/dL [facility] Sodium [Moles/Vol] 139 mmol/L 136 - 145 mmol/L [facility] Urea nitrogen [Mass/Vol] 37 mg/dL High 9 - 23 mg/d L [facility] Laboratory - Chemistry and C hemistry - challengeon 04-13-2025 Base excess Calc (Bld) [Moles/Vol] 11.7 mmol/L High -3.0 - 3.0 mmol/L [facility] CO2 (Bld) [Partial pressure] 59.2 mm[Hg] High [facility] CO2 [Moles/Vol] 39.9 mmol/L High 22.0 - 28.0 mmol/L [facility] HCO3 (Bld) [Moles/Vol] 38.1 mmol/L High 21.0 - 27.0 mmol/L [facility] Oxygen (Bld) [Partial pressure] 79.2 mm[Hg] Low [facility] pH (Bld) 7.426 [pH] 7.350 - 7.450 [facility] Magnesium [Mass/Vol] 1.9 mg/dL 1.6 - 2 .6 mg/dL [facility] Laboratory - Hematology and Cell countson 04-13-2025 Hemoglobin (Bld) [Mass/Vol] 11.3 g/dL Low 13.5 - 17.5 g/dl [facility] Anisocytosis Ql (Bld) Moderate Abnormal (none) [facility] Eosinophils (Bld) [#/Vol] 0.3 10*3/uL 0.0 - 0.5 10*3/uL [facility] Eosinophils/100 WBC (Bld) 2 % 0 - 6 % [facility] Hypochromia Ql (Bld) Slight Abnormal (none) [facility] Lymphocytes (Bld) [#/Vol] 1.9 10*3/uL 1.0 - 4.3 10*3/uL [facility] Lymphocytes/100 WBC (Bld) 15 % 15 - 45 % [facility] Monocytes (Bld) [#/Vol] 0.9 10*3/uL 0.0 - 0.9 10*3/uL [facility] Monocytes/100 WBC (Bld) 7 % 5 - 13 % [facility] Myelocytes (Bld) [#/Vol] 0.1 10*3/uL High SELENE F - 0.0 10*3/uL [facility] Myelocytes/100 WBC (Bld) 1 % High NINF - 0 % [facility] Neutrophils (Bld) [#/Vol] 9.7 10*3/uL High 1.8 - 7.5 10*3/uL [facility] Poikilocytosis LM Ql (Bld) Slight Abnormal (none) [facility] RBC morphology finding Nom (Bld) abnormal [facility] Segmented neutrophils/100 WBC (Bld) 76 % 38 - 82 % [facility] Stomatocytes LM Ql (Bld) Slight Abnormal (none) [facility] Laboratory - Microbiology an d Antimicrobial susceptibilityon 04-13-2025 Bacteria identified Aer cx Nom (Unsp spec) No growth at 4 days [facility] - Microbiology an d Antimicrobial susceptibilityOrdered By: Bianca Daigle on 04-13-2025 Bacteria identified Aer cx Nom (Unsp spec) No growth at 4 days [facility] MAGNESIUMon 04-13-2025 Magnesium [Mass/Vol] 1.9 mg/dL Normal 1.6-2.6 [facility] Comment on above: Result Comment: ORDE R COMMENTS:Higher values can be expected in females during menses. Performed By: #### L AB17, [id number], [id number] ####Utility Inspector: UNA ARCE ([id number])[facility] [place] ([facility])[address] MANUAL DIFFERENTIAL (CELLAVI BANDAR)on 04-13-2025 ANISOCYTOSIS PRESENCE IN BLOOD BY LIGHT MICROSCOPY Moderate Abnormal (none) [facility] Comment on above: Performed By: #### L [id number], [id number] ####Utility Inspector: UNA ARCE ([id number])[facility] [place] ([facility])[address] BAND NEUTROPHILS TOTAL PER COUNTED LEUKOCYTES BY MANUAL COUNT Normal [facility] Comment on above: Performed By: #### L [id number], [id number] ####Utility Inspector: UNA ARCE ([id number])[facility] [place] ([facility])[address] BASOPHILS TOTAL PER COUNTED LEUKOCYTES BY MANUAL COUNT Normal [facility] Comment on above: Performed By: #### L [id number], [id number] ####Utility Inspector: UNA ARCE ([id number])[facility] [place] ([facility])[address] BLASTS TOTAL PER COUNTED LEUKOCYTES BY MANUAL COUNT Normal [facility] Comment on above: Performed By: #### L [id number], [id number] ####Utility Inspector: UNA ARCE ([id number])[facility] [place] ([facility])[address] [place] [address] [place] EOSINOPHILS (10*3/UL) IN BLOOD-CELLAVISION 0.3 10*3/uL Normal 0.0-0.5 [facility] Comment on above: Performed By: #### L [id number], [id number] ####Utility Inspector: UNA ARCE ([id number])[facility] [place] ([facility])[address] [place] [address] [place] EOSINOPHILS TOTAL PER COUNTED LEUKOCYTES BY MANUAL COUNT 2 High 0-1 [facility] Comment on above: Performed By: #### L [id number], [id number] ####Utility Inspector: UNA ARCE ([id number])[facility] [place] ([facility])[address] [place] [address] [place] EOSINOPHILS/100 LEUKOCYTES IN BLOOD-CELLAVISION 2 % Normal 0-6 [facility] Comment on above: Performed By: #### L [id number], [id number] ####Utility Inspector: UNA MOHRCER ([id number])[facility] [place] ([facility])[address] [place] [address] [place] HYPOCHROMIA (PRESENCE) IN BLOOD BY LIGHT MICROSCOPY Slight Abnormal (none) [facility] Comment on above: Performed By: #### L [id number], [id number] ####Utility Inspector: UNA ARCE ([id number])[facility] BARBUNIVERSITY [facility]PITALSN (SB[facility])[address] [place] [address] [place] LYMPHOCYTES (10*3/UL) IN BLOOD-CELLAVISION 1.9 10*3/uL Normal 1.0-4.3 [facility] Comment on above: Performed By: #### L [id number], [id number] ####Utility Inspector: UNA ARCE ([id number])[facility] [place] ([facility])[address] [place] [address] [place] LYMPHOCYTES TOTAL PER COUNTED LEUKOCYTES BY MANUAL COUNT 15 Normal [facility] Comment on above: Performed By: #### L [id number], [id number] ####Utility Inspector: UNA ARCE ([id number])[facility] [place] ([facility])[address] [place] [address] [place] LYMPHOCYTES/100 LEUKOCYTES IN BLOOD-CELLAVISION 15 % Normal 15-45 [facility] Comment on above: Performed By: #### L [id number], [id number] ####Utility Inspector: UNA ARCE ([id number])[facility] [place] ([facility])[address] [place] [address] [place] METAMYELOCYTES TOTAL PER COUNTED LEUKOCYTES BY MANUAL COUNT Normal [facility] Comment on above: Performed By: #### L [id number], [id number] ####Utility Inspector: UNA ARCE ([id number])[facility] [place] ([facility])[address] [place] [address] [place] MONOCYTES (10*3/UL) IN BLOOD-CELLAVISION 0.9 10*3/uL Normal 0.0-0.9 [facility] Comment on above: Performed By: #### L [id number], [id number] ####Utility Inspector: UNA ARCE ([id number])[facility] [place] ([facility])[address] [place] [address] [place] MONOCYTES TOTAL PER COUNTED LEUKOCYTES BY MANUAL COUNT 7 Normal [facility] Comment on above: Performed By: #### L [id number], [id number] ####Utility Inspector: UNA ARCE ([id number])[facility] [place] ([facility])[address] [place] [address] [place] MONOCYTES/100 LEUKOCYTES IN BLOOD-LUCIANA 7 % Normal 5-13 [facility] Comment on above: Performed By: #### L [id number], [id number] ####Utility Inspector: UNA ARCE ([id number])[facility] [place] ([facility])[address] [place] [address] [place] MYELOCYTES (10*3/UL) IN BLOOD-CELLAVISION 0.1 10*3/uL High <=0.0 [facility] Comment on above: Performed By: #### L [id number], [id number] ####Utility Inspector: UNA ARCE ([id number])[facility] [place] ([facility])[address] [place] [address] [place] MYELOCYTES COUNTED BY MANUAL COUNT 1 Normal [facility] Comment on above: Performed By: #### L [id number], [id number] ####Utility Inspector: UNA [id number])[facility] [place] ([facility])[address] [place] [address] [place] MYELOCYTES/100 LEUKOCYTES IN BLOOD-CELLAVISION 1 % High <=0 [facility] Comment on above: Performed By: #### L [id number], [id number] ####Utility Inspector: UNA ARCE ([id number])[facility] [place] ([facility])[address] [place] [address] [place] NEUTROPHILS TOTAL PER COUNTED LEUKOCYTES BY MANUAL COUNT 77 Normal [facility] Comment on above: Performed By: #### L [id number], [id number] ####Utility Inspector: UNA ARCE ([id number])[facility] [place] ([facility])[address] [place] [address] [place] POIKILOCYTOSIS (PRESENCE) IN BLOOD BY LIGHT MICROSCOPY Slight Abnormal (none) [facility] Comment on above: Performed By: #### L [id number], [id number] ####Utility Inspector: UNA ARCE ([id number])[facility] [place] ([facility])[address] [place] [address] [place] PROMYELOCYTES TOTAL PER COUNTED LEUKOCYTES BY MANUAL COUNT [facility] Comment on above: Performed By: #### L [id number], [id number] ####Utility Inspector: UNA ARCE ([id number])[facility] [place] ([facility])[address] [place] [address] [place] RBC MORPHOLOGY IN BLOOD abnormal Normal [facility] Comment on above: Performed By: #### L [id number], [id number] ####Utility Inspector: UNA ARCE ([id number])[facility] [place] ([facility])[address] [place] [address] [place] SEGMENTED NEUTROPHILS (10*3/UL) IN BLOOD-CELLAVISION 9.7 10*3/uL High 1.8-7.5 [facility] Comment on above: Performed By: #### L [id number], [id number] ####Utility Inspector: UNA ARCE ([id number])[facility] [place] ([facility])[address] SEGMENTED NEUTROPHILS/100 LEUKOCYTES-CE 76 % Normal 38-82 [facility] Comment on above: Performed By: #### L [id number], [id number] ####Utility Inspector: UNA ARCE ([id number])[facility] ([facility])[address] STOMATOCYTES IN BLOOD BY LIGHT MICROSCOPY Slight Abnormal (none) [facility] Comment on above: Performed By: #### L [id number], [id number] ####Utility Inspector: UNA ARCE ([id number])[facility] ([facility])[address] UNCLASSIFIED CELLS TOTAL PER COUNTED LEUKOCYTES BY MANUAL COUNT Normal [facility] Comment on above: Performed By: #### L [id number], [id number] ####Utility Inspector: UNA ARCE ([id number])[facility] ([facility])[address] VARIANT LYMPHOCYTES TOTAL PER COUNTED LEUKOCYTES BY MANUAL COUNT Normal [facility] Comment on above: Performed By: #### L [id number], [id number] ####Utility Inspector: UNA ARCE ([id number])[facility] ([facility])[address] Magnesium [Mass/Vol]on 04-13 [facility] No Panel Informationon 04-13 Amount Of Oxygen 2 lpm [facility] alth Interpretation and review of laboratory results Abnormal [facility] Source Of Oxygen Nasal Cannula (LPM) [facility] Interpretation and review of laboratory results Normal [facility] Eosinophils Manual 2 High 0 - 1 [facility] Interpretation and review of laboratory results Abnormal [facility] Lymphocytes Manual 15 [facility] Monocytes Manual 7 [facility] Myelocytes Manual 1 [facility] ealth Neutrophils Manual 77 [facility] PHOSPHORUSon 04-13-2025 Phosphate [Mass/Vol] 2.9 mg/dL Normal 2.3-4.7 [facility] Comment on above: Performed By: #### L AB17, [id number], [id number] ####Utility Inspector: UNA ARCE ([id number])[facility] (SBAB)[address] [place] [address] Phosphate [Moles/Vol]on Phosphate [Mass/Vol] 2.9 mg/dL 2.3 - 4 .7 mg/dL [facility] Progress Noteon 04-13-2025 [facility] Progress [facility] XR Chest Single viewon 04-13 Radiology Study observation (narrative) [facility] alth [id number] 04-12-2025 [id number] Normal [facility] [id number] Normal [facility] CBC W Auto Differential pane l (Bld)on 04-12-2025 Erythrocyte distribution width (RBC) [Ratio] 24.3 % High 11.5 - 15.0 % [facility] Hematocrit (Bld) [Volume fraction] 26.8 % Low 40.0 - 52.0 % [facility] Hemoglobin (Bld) [Mass/Vol] 7.4 g/dL Low 13.0 - 18.0 g/dL [facility] MCH (RBC) [Entitic mass] 23.1 pg Low 26. 0 - 34.0 pg [facility] MCHC (RBC) [Mass/Vol] 27.6 % Low 30.5 - 36.0 % [facility] MCV (RBC) [Entitic vol] 83.8 fL 77.0 - 99.0 fL [facility] Platelet mean volume (Bld) [Entitic vol] 9.3 fL 9.0 - 12.7 fL [facility] Platelets (Bld) [#/Vol] 272 10*3/uL 140 - 440 10*3/uL [facility] RBC (Bld) [#/Vol] 3.2 10*6/uL Low 4.40 - 5.9 0 10*6/uL [facility] WBC (Bld) [#/Vol] 12 10*3/uL High 3.6 - 10.7 10*3/uL [facility] CBC WITH AUTO DIFFERENTIALon 04-12-2025 Erythrocyte distribution width (RBC) [Ratio] 24.3 % High 11.5-15.0 [facility] Comment on above: Performed By: #### L [id number], [id number] ####Utility Inspector: UNA ARCE ([id number])[facility] (SBHLAB)[address] Hematocrit (Bld) [Volume fraction] 26.8 % Low 40.0-52.0 [facility] Comment on above: Performed By: #### L [id number], [id number] ####Utility Inspector: UNA ARCE ([id number])[facility] (SBAB)[address] Hemoglobin (Bld) [Mass/Vol] 7.4 g/dL Low 13.0-18.0 [facility] Comment on above: Performed By: #### L [id number], [id number] ####Utility Inspector: UNA ARCE ([id number])[facility] (SB[facility])[address] MCH (RBC) [Entitic mass] 23.1 pg Low 26.0-34.0 [facility] Comment on above: Performed By: #### L [id number], [id number] ####Utility Inspector: UNA ARCE ([id number])[facility] (SB[facility])[address] MCHC 27.6 % Low 30.5-36.0 [facility] Comment on above: Performed By: #### L [id number], [id number] ####Utility Inspector: UNA ARCE ([id number])[facility] (SB[facility])[address] MCV (RBC) [Entitic vol] 83.8 fL Normal 77.0-99.0 [facility] Comment on above: Performed By: #### L [id number], [id number] ####Utility Inspector: UNA ARCE ([id number])[facility] [place] (SBHLAB)[address] Platelet mean volume (Bld) [Entitic vol] 9.3 fL Normal 9.0-12.7 [facility] Comment on above: Performed By: #### L [id number], [id number] ####Utility Inspector: UNA ARCE ([id number])[facility] [place] ([facility])[address] Platelets (Bld) [#/Vol] 272 10*3/uL Normal 140-440 [facility] Comment on above: Performed By: #### L [id number], [id number] ####Utility Inspector: UNA ARCE ([id number])[facility] [place] ([facility])[address] RBC (Bld) [#/Vol] 3.20 10*6/uL Low 4.40-5.90 [facility] Comment on above: Performed By: #### L [id number], [id number] ####Utility Inspector: UNA ARCE ([id number])[facility] [place] ([facility])[address] WBC (Bld) [#/Vol] 12.0 10*3/uL High 3.6-10.7 [facility] Comment on above: Performed By: #### L [id number], [id number] ####Utility Inspector: UNA ARCE ([id number])[facility] [place] ([facility])[address] COMPREHENSIVE METABOLIC PANE Anant 04-12-2025 Albumin [Mass/Vol] 2.2 g/dL Low 3.4-4.8 [facility] Comment on above: Performed By: #### L [id number], [id number], [id number] ####Utility Inspector: UNA ARCE ([id number])[facility] [place] ([facility])[address] [place] [address] [place] ALP [Catalytic activity/Vol] 49 U/L Normal 40-150 [facility] Comment on above: Performed By: #### L AB17, [id number], [id number] ####Utility Inspector: UNA ARCE ([id number])[facility] [place] (SBHLAB)[address] [place] [address] [place] ALT [Catalytic activity/Vol] U/L Normal <40 [facility] Comment on above: Performed By: #### L AB17, [id number], [id number] ####Utility Inspector: UNA ARCE ([id number])[facility] [place] ([facility])[address] Anion gap [Moles/Vol] 7 mmol/L Normal 3-13 [facility] Comment on above: Performed By: #### L AB17, [id number], [id number] ####Utility Inspector: UNA ARCE ([id number])[facility] [place] (SBHLAB)[address] AST [Catalytic activity/Vol] 19 U/L Normal <34 [facility] Comment on above: Performed By: #### L AB17, [id number], [id number] ####Utility Inspector: UNA ARCE ([id number])[facility] [place] (SBHLAB)[address] Bilirubin [Mass/Vol] 0.6 mg/dL Normal <1.2 [facility] Comment on above: Performed By: #### L AB17, AGY410, XIL298 ####Utility Inspector: UNA ARCE ([id number])[facility] [place] (SBHLAB)[address] [place] [address] [place] Calcium [Mass/Vol] 7.9 mg/dL Low 8.8-10.0 [facility] Comment on above: Performed By: #### L AB17, PBI226, HTW171 ####Utility Inspector: UNA ARCE ([id number])[facility] [place] (SB[facility]AB)[address] [place] [address] [place] Chloride [Moles/Vol] 95 mmol/L Low 98-107 [facility] Comment on above: Performed By: #### L AB17, SUS972, MDJ546 ####Utility Inspector: UNA ARCE ([id number])[facility] (SBHLAB)[address] CO2 [Moles/Vol] 37 mmol/L High 23-31 [facility] Comment on above: Performed By: #### L AB17, CEY212, VUT511 ####Utility Inspector: UNA ARCE ([id number])[facility] Creatinine [Mass/Vol] 1.53 mg/dL High 0.72-1.25 [facility] Comment on above: Performed By: #### Gilbert AHN17, OGD107, FYM379 ####Utility Inspector: UNA ARCE ([id number])[facility] GLOMERULAR FILTRATION RATE ML/MIN/1.73 SQ M.PREDICTED 43.2 mL/min/1.73m*2 Low >60.0 [facility] Comment on above: Result Comment: Calc ulation based on the Chronic Kidney Disease Epidemiology Collaboration (CKD-EPI) equation refit without adjustment for race Performed By: #### L 17, [id number], GXY197 ####Utility Inspector: UNA ARCE ([id number])[facility] (SBHLAB)[address] Glucose [Mass/Vol] 103 mg/dL Normal 82-115 [facility] Comment on above: Performed By: #### L AB17, QSI237, ZHA262 ####Utility Inspector: UNA ARCE ([id number])[facility] (SBHLAB)[address] Potassium [Moles/Vol] 3.7 mmol/L Normal 3.5-5.1 [facility] Comment on above: Result Comment: Plas ma potassium values may be up to 0.5 mmol/L lower than serum values. Performed By: #### L AB17, AKP339, [id number] ####Utility Inspector: UNA STAUFFERMELANIE ([id number])[facility] (SBHLAB)[address] Protein [Mass/Vol] 5.6 g/dL Low 6.4-8.3 [facility] Comment on above: Performed By: #### L AB17, DDA234, TAA303 ####Utility Inspector: UNA ARCE ([id number])[facility] (SBHLAB)[address] Sodium [Moles/Vol] 139 mmol/L Normal 136-145 [facility] Comment on above: Performed By: #### L AB17, [id number], VXT872 ####Utility Inspector: UNA ARCE ([id number])[facility] (SBHLAB)[address] Urea nitrogen [Mass/Vol] 40 mg/dL High 9-23 [facility] Comment on above: Performed By: #### L AB17, [id number], WBG489 ####Utility Inspector: UNA BERMUDEZPEDRO ([id number])[facility] (SBHLAB)[address] [place] [address] Comprehensive metabolic 1998 panelon 04-12-2025 Albumin [Mass/Vol] 2.2 g/dL Low 3.4 - 4.8 g/dL [facility] ALP [Catalytic activity/Vol] 49 U/L 40 - 150 U/L [facility] ALT [Catalytic activity/Vol] U/L NINF - 40 U/L [facility] Anion gap [Moles/Vol] 7 mmol/L 3 - 13 mmol/L [facility] AST [Catalytic activity/Vol] 19 U/L NINF - 34 U/L [facility] Bilirubin [Mass/Vol] 0.6 mg/dL NINF - 1.2 mg/dL [facility] Calcium [Mass/Vol] 7.9 mg/dL Low 8.8 - 10. 0 mg/dL [facility] Chloride [Moles/Vol] 95 mmol/L Low 98 - 10 7 mmol/L [facility] CO2 [Moles/Vol] 37 mmol/L High 23 - 31 mmol/L [facility] Creatinine [Mass/Vol] 1.53 mg/dL High 0.72 - 1.25 mg/dL [facility] GFR/1.73 sq M.predicted (S/P/Bld) [Vol rate/Area] 43.2 mL/min Low - PINF [facility] Glucose [Mass/Vol] 103 mg/dL 82 - 115 mg/dL [facility] Interpretation and review of laboratory results Abnormal [facility] Potassium [Moles/Vol] 3.7 mmol/L 3.5 - 5.1 mmol/L [facility] Protein [Mass/Vol] 5.6 g/dL Low 6.4 - 8.3 g/dL [facility] Sodium [Moles/Vol] 139 mmol/L 136 - 145 mmol/L [facility] Urea nitrogen [Mass/Vol] 40 mg/dL High 9 - 23 mg/d L [facility] Consulton 04-12-2025 Consult Normal [facility] Laboratory - Chemistry and C hemistry - challengeon 04-12-2025 Magnesium [Mass/Vol] 2.2 mg/dL 1.6 - 2 .6 mg/dL [facility] Laboratory - Hematology and Cell countson 04-12-2025 Anisocytosis Ql (Bld) Slight Abnormal (none) [facility] Band form neutrophils (Bld) [#/Vol] 0.1 10*3/uL High NINF - 0.0 10*3/uL [facility] Band form neutrophils/100 WBC (Bld) 1 % High NINF - 0 % [facility] Eosinophils (Bld) [#/Vol] 0.8 10*3/uL High 0.0 - 0.5 10*3/uL [facility] Eosinophils/100 WBC (Bld) 7 % High 0 - 6 % [facility] Lymphocytes (Bld) [#/Vol] 0.7 10*3/uL Low 1.0 - 4.3 10*3/uL [facility] Lymphocytes/100 WBC (Bld) 6 % Low 15 - 45 % [facility] Monocytes (Bld) [#/Vol] 0.5 10*3/uL 0.0 - 0.9 10*3/uL [facility] Monocytes/100 WBC (Bld) 4 % Low 5 - 13 % [facility] Neutrophils (Bld) [#/Vol] 9.8 10*3/uL High 1.8 - 7.5 10*3/uL [facility] RBC morphology finding Nom (Bld) abnormal [facility] Segmented neutrophils/100 WBC (Bld) 81 % 38 - 82 % [facility] MAGNESIUMon 04-12-2025 Magnesium [Mass/Vol] 2.2 mg/dL Normal 1.6-2.6 [facility] Comment on above: Result Comment: YARELI [place] COMMENTS:Higher values can be expected in females during menses. Performed By: #### L AB17, [id number], SBW706 ####Utility Inspector: UNA ARCE ([id number])[facility] [place] (SB[facility]AB)[address] MANUAL DIFFERENTIAL (CELLAVI BANDAR)on 04-12-2025 ANISOCYTOSIS PRESENCE IN BLOOD BY LIGHT MICROSCOPY Slight Abnormal (none) [facility] Comment on above: Performed By: #### L [id number], [id number] ####Utility Inspector: UNA ARCE ([id number])[facility] [place] (SBHLAB)[address] BAND NEUTROPHILS TOTAL PER COUNTED LEUKOCYTES BY MANUAL COUNT 1 Normal [facility] Comment on above: Performed By: #### L [id number], [id number] ####Utility Inspector: UNA ARCE ([id number])[facility] [place] (SBHLAB)[address] BANDS (10*3/UL) IN BLOOD-CELLAVISION 0.1 10*3/uL High <=0.0 [facility] Comment on above: Performed By: #### L [id number], [id number] ####Utility Inspector: UNA ARCE ([id number])[facility] [place] (SB[facility]AB)[address] BASOPHILS TOTAL PER COUNTED LEUKOCYTES BY MANUAL COUNT Normal [facility] Comment on above: Performed By: #### L [id number], [id number] ####Utility Inspector: UNA BERMUDEZPEDRO ([id number])[facility] [place] (SBHLAB)[address] [place] [address] [place] BLASTS TOTAL PER COUNTED LEUKOCYTES BY MANUAL COUNT Normal [facility] Comment on above: Performed By: #### L [id number], [id number] ####Utility Inspector: UNA YAZMIN ([id number])[facility] [place] (SB[facility]AB)[address] [place] [address] [place] EOSINOPHILS (10*3/UL) IN BLOOD-CELLAVISION 0.8 10*3/uL High 0.0-0.5 [facility] Comment on above: Performed By: #### L [id number], [id number] ####Utility Inspector: UNA BERMUDEZPEDRO ([id number])[facility] [place] (SB[facility]AB)[address] [place] [address] [place] EOSINOPHILS TOTAL PER COUNTED LEUKOCYTES BY MANUAL COUNT 7 High 0-1 [facility] Comment on above: Performed By: #### L [id number], [id number] ####Utility Inspector: UNA BERMUDEZPEDRO ([id number])[facility] [place] (SB[facility]AB)[address] [place] [address] [place] EOSINOPHILS/100 LEUKOCYTES IN BLOOD-CELLAVISION 7 % High 0-6 [facility] Comment on above: Performed By: #### L [id number], [id number] ####Utility Inspector: UNA BERMUDEZPEDRO ([id number])[facility] [place] (SBHLAB)[address] [place] [address] [place] LYMPHOCYTES (10*3/UL) IN BLOOD-CELLAVISION 0.7 10*3/uL Low 1.0-4.3 [facility] Comment on above: Performed By: #### L [id number], [id number] ####Utility Inspector: UNA BERMUDEZPEDRO ([id number])[facility] [place] (SB[facility]AB)[address] [place] [address] [place] LYMPHOCYTES TOTAL PER COUNTED LEUKOCYTES BY MANUAL COUNT 6 Normal [facility] Comment on above: Performed By: #### L [id number], [id number] ####Utility Inspector: UNA ARCE ([id number])[facility] [place] (SBHLAB)[address] [place] [address] [place] LYMPHOCYTES/100 LEUKOCYTES IN BLOOD-CELLAVISION 6 % Low 15-45 [facility] Comment on above: Performed By: #### L [id number], [id number] ####Utility Inspector: UNA ARCE ([id number])[facility] [place] (SB[facility]AB)[address] [place] [address] [place] METAMYELOCYTES TOTAL PER COUNTED LEUKOCYTES BY MANUAL COUNT Normal [facility] Comment on above: Performed By: #### L [id number], [id number] ####Utility Inspector: UNA BERMUDEZPEDRO ([id number])[facility] [place] (SB[facility])[address] [place] [address] [place] MONOCYTES (10*3/UL) IN BLOOD-CELLAVISION 0.5 10*3/uL Normal 0.0-0.9 [facility] Comment on above: Performed By: #### L [id number], [id number] ####Utility Inspector: UNA ARCE ([id number])[facility] [place] (SB[facility]AB)[address] [place] [address] [place] MONOCYTES TOTAL PER COUNTED LEUKOCYTES BY MANUAL COUNT 4 Normal [facility] Comment on above: Performed By: #### L [id number], [id number] ####Utility Inspector: UNA ARCE ([id number])[facility] [place] (SB[facility]AB)[address] [place] [address] [place] MONOCYTES/100 LEUKOCYTES IN BLOOD-LUCIANA 4 % Low 5-13 [facility] Comment on above: Performed By: #### L [id number], [id number] ####Utility Inspector: UNA STAUFFERMELANIE ([id number])[facility] [place] (SB[facility]AB)[address] [place] [address] [place] MYELOCYTES COUNTED BY MANUAL COUNT Normal [facility] Comment on above: Performed By: #### L [id number], [id number] ####Utility Inspector: UNA YAZMIN ([id number])[facility] [place] (SBHLAB)[address] [place] [address] [place] NEUTROPHILS BAND FORM/100 LEUKOCYTES IN BLOOD-CELLAVISI 1 % High <=0 [facility] Comment on above: Performed By: #### L [id number], [id number] ####Utility Inspector: UNA BERMUDEZPEDRO ([id number])[facility] [place] (SB[facility]AB)[address] [place] [address] [place] NEUTROPHILS TOTAL PER COUNTED LEUKOCYTES BY MANUAL COUNT 83 Normal [facility] Comment on above: Performed By: #### L [id number], [id number] ####Utility Inspector: UNA BERMUDEZPEDRO ([id number])[facility] [place] (SB[facility]AB)[address] [place] [address] [place] PROMYELOCYTES TOTAL PER COUNTED LEUKOCYTES BY MANUAL COUNT [facility] Comment on above: Performed By: #### L [id number], [id number] ####Utility Inspector: UNA BERMUDEZPEDRO ([id number])[facility] [place] (SBHLAB)[address] [place] [address] [place] RBC MORPHOLOGY IN BLOOD abnormal Normal [facility] Comment on above: Performed By: #### L [id number], [id number] ####Utility Inspector: UNA STAUFFERMELANIE ([id number])[facility] [place] (SB[facility]AB)[address] [place] [address] [place] SEGMENTED NEUTROPHILS (10*3/UL) IN BLOOD-CELLAVISION 9.8 10*3/uL High 1.8-7.5 [facility] Comment on above: Performed By: #### L [id number], [id number] ####Utility Inspector: UNA ARCE ([id number])[facility] [place] (SB[facility]AB)[address] [place] [address] [place] SEGMENTED NEUTROPHILS/100 LEUKOCYTES-CE 81 % Normal 38-82 [facility] Comment on above: Performed By: #### L [id number], [id number] ####Utility Inspector: UNA ARCE ([id number])[facility]AUN[facility]ALS[facility] (SBHLAB)[address] UNCLASSIFIED CELLS TOTAL PER COUNTED LEUKOCYTES BY MANUAL COUNT Normal [facility] Comment on above: Performed By: #### L [id number], [id number] ####Utility Inspector: UNA ARCE ([id number])[facility] (SBHLAB)[address] VARIANT LYMPHOCYTES TOTAL PER COUNTED LEUKOCYTES BY MANUAL COUNT Normal [facility] Comment on above: Performed By: #### L [id number], [id number] ####Utility Inspector: UNA ARCE ([id number])[facility] [place] (SBHLAB)[address] Magnesium [Mass/Vol]on 04-12 [facility] No Panel Informationon 04-12 Bands Manual 1 [facility] Eosinophils Manual 7 High 0 - 1 [facility] Interpretation and review of laboratory results Abnormal [facility] Lymphocytes Manual 6 [facility] Monocytes Manual 4 [facility]th Neutrophils Manual 83 [facility] Interpretation and review of laboratory results Normal [facility] PHOSPHORUSon 04-12-2025 Phosphate [Mass/Vol] 2.7 mg/dL Normal 2.3-4.7 [facility] Comment on above: Performed By: #### L AB17, [id number], [id number] ####Utility Inspector: UNA ARCE ([id number])[facility] (SBHLAB)[address] [place] [address] [place] Phosphate [Moles/Vol]on Phosphate [Mass/Vol] 2.7 mg/dL 2.3 - 4 .7 mg/dL [facility] Progress Noteon 04-12-2025 Progress Note Normal [facility] Progress Note Normal [facility] Progress Note Normal [facility] Progress Note Normal [facility] CBC W Auto Differential pane l (Bld)on 04-11-2025 Erythrocyte distribution width (RBC) [Ratio] 24.2 % High 11.5 - 15.0 % [facility] Hematocrit (Bld) [Volume fraction] 28.9 % Low 40.0 - 52.0 % [facility] Hemoglobin (Bld) [Mass/Vol] 7.9 g/dL Low 13.0 - 18.0 g/dL [facility] Interpretation and review of laboratory results Abnormal [facility] MCH (RBC) [Entitic mass] 22.7 pg Low 26. 0 - 34.0 pg [facility] MCHC (RBC) [Mass/Vol] 27.3 % Low 30.5 - 36.0 % [facility] MCV (RBC) [Entitic vol] 83 fL 77.0 - 99.0 fL [facility] Platelet mean volume (Bld) [Entitic vol] 9.2 fL 9.0 - 12.7 fL [facility] Platelets (Bld) [#/Vol] 313 10*3/uL 140 - 440 10*3/uL [facility] RBC (Bld) [#/Vol] 3.48 10*6/uL Low 4.40 - 5.9 0 10*6/uL [facility] WBC (Bld) [#/Vol] 13.8 10*3/uL High 3.6 - 10.7 10*3/uL [facility] CBC WITH AUTO DIFFERENTIALon 04-11-2025 Erythrocyte distribution width (RBC) [Ratio] 24.2 % High 11.5-15.0 [facility] Comment on above: Performed By: #### L [id number], [id number] ####Utility Inspector: UNA ARCE ([id number])[facility] ([facility])[address] [place] [address] Hematocrit (Bld) [Volume fraction] 28.9 % Low 40.0-52.0 [facility] Comment on above: Performed By: #### L [id number], [id number] ####Utility Inspector: UNA ARCE ([id number])[facility] ([facility])[address] Hemoglobin (Bld) [Mass/Vol] 7.9 g/dL Low 13.0-18.0 [facility] Comment on above: Performed By: #### L [id number], [id number] ####Utility Inspector: UNA ARCE ([id number])[facility] LAURACHRISTINAN (SBHLAB)[address] MCH (RBC) [Entitic mass] 22.7 pg Low 26.0-34.0 [facility] Comment on above: Performed By: #### L [id number], [id number] ####Utility Inspector: UNA ARCE ([id number])[facility]ITAL[facility] SANCHEZUNIVERSITY OF NEW MEX[facility] HOSPITALSN (SBHLAB)[address] MCHC 27.3 % Low 30.5-36.0 [facility] Comment on above: Performed By: #### L [id number], [id number] ####Utility Inspector: UNA ARCE ([id number])[facility]ITAL[facility] SANCHEZCHRISTINAN (SBHLAB)[address] MCV (RBC) [Entitic vol] 83.0 fL Normal 77.0-99.0 [facility] Comment on above: Performed By: #### L [id number], [id number] ####Utility Inspector: UNA ARCE ([id number])[facility]ITAL[facility] SANCHEZUNIVERSITY OF NEW MEX[facility] HOSPITALSN (SBHLAB)[address] Platelet mean volume (Bld) [Entitic vol] 9.2 fL Normal 9.0-12.7 [facility] Comment on above: Performed By: #### L [id number], [id number] ####Utility Inspector: UNA ARCE ([id number])[facility]ITAL[facility] S[facility]ZUNIVERSITY [facility] HOSPITALSN (SBHLAB)[address] Platelets (Bld) [#/Vol] 313 10*3/uL Normal 140-440 [facility] Comment on above: Performed By: #### L [id number], [id number] ####Utility Inspector: UNA ARCE ([id number])[facility]ITALAngel SANCHEZUNIVERSITY OF NEW MEX[facility] HOSPITALSN (SBHLAB)[address] RBC (Bld) [#/Vol] 3.48 10*6/uL Low 4.40-5.90 [facility] Comment on above: Performed By: #### L [id number], [id number] ####Utility Inspector: UNA ARCE ([id number])[facility]ITALAngel [place] (SBHLAB)[address] WBC (Bld) [#/Vol] 13.8 10*3/uL High 3.6-10.7 [facility] Comment on above: Performed By: #### L [id number], [id number] ####Utility Inspector: UNA ARCE ([id number])[facility]ITALAngel BASHIRMarisol (SBHLAB)[address] COMPREHENSIVE METABOLIC PANE Anant 04-11-2025 Albumin [Mass/Vol] 2.4 g/dL Low 3.4-4.8 [facility] Comment on above: Performed By: #### L AB17, CUS937, [id number] ####Utility Inspector: UNA ARCE ([id number])[facility]ITALAngel SANCHEZLUIS (SBHLAB)[address] ALP [Catalytic activity/Vol] 53 U/L Normal 40-150 [facility] Comment on above: Performed By: #### L AB17, [id number], WSP345 ####Utility Inspector: UNA ARCE ([id number])[facility]ITAL[facility] SANCHEZLUIS (SBHLAB)[address] ALT [Catalytic activity/Vol] U/L Normal <40 [facility] Comment on above: Performed By: #### L AB17, BSJ406, KRV879 ####Utility Inspector: UNA ARCE ([id number])[facility]ITALAngel SANCHEZUNIVERSITY OF NEW MEXICO HOSPITALSMarisol (SBHLAB)[address] Anion gap [Moles/Vol] 10 mmol/L Normal 3-13 [facility] Comment on above: Performed By: #### L AB17, JQU309, GRR466 ####Utility Inspector: UNA ARCE ([id number])LYNETTE BASHIRN (SBHLAB)[address] [place] [address] [place] AST [Catalytic activity/Vol] 18 U/L Normal <34 [facility] Comment on above: Performed By: #### L AB17, JSX666, PJQ312 ####Utility Inspector: UNA ARCE ([id number])[facility]ITALAngel BASHIRN (SBHLAB)[address] Bilirubin [Mass/Vol] 0.7 mg/dL Normal <1.2 [facility] Comment on above: Performed By: #### L AB17, UAW995, [id number] ####Utility Inspector: UNA ARCE ([id number])[facility]ITALAngel BASHIRN (SBHLAB)[address] Calcium [Mass/Vol] 8.1 mg/dL Low 8.8-10.0 [facility] Comment on above: Performed By: #### L AB17, NNH325, EJH423 ####Utility Inspector: UNA ARCE ([id number])[facility]ITALAngel BASHIRN (SBHLAB)[address] [place] [address] [place] Chloride [Moles/Vol] 94 mmol/L Low 98-107 [facility] Comment on above: Performed By: #### L AB17, NKL149, CFS077 ####Utility Inspector: UNA ARCE ([id number])[facility]ITALAngel BASHIRN (SBHLAB)[address] [place] [address] [place] CO2 [Moles/Vol] 35 mmol/L High 23-31 [facility] Comment on above: Performed By: #### L AB17, [id number], [id number] ####Utility Inspector: UNA ARCE ([id number])[facility] [place] (SBHLAB)[address] [place] [address] [place] Creatinine [Mass/Vol] 1.55 mg/dL High 0.72-1.25 [facility] Comment on above: Performed By: #### L AB17, TXH278, [id number] ####Utility Inspector: UNA ARCE ([id number])[facility]ITALAngel [facility] (SBHLAB)[address] GLOMERULAR FILTRATION RATE ML/MIN/1.73 SQ M.PREDICTED 42.5 mL/min/1.73m*2 Low >60.0 [facility] Comment on above: Result Comment: Calc ulation based on the Chronic Kidney Disease Epidemiology Collaboration (CKD-EPI) equation refit without adjustment for race Performed By: #### L AB17, EIH390, [id number] ####Utility Inspector: UNA ARCE ([id number])[facility] (SBHLAB)[address] Glucose [Mass/Vol] 103 mg/dL Normal 82-115 [facility] Comment on above: Performed By: #### L AB17, ISQ088, GFU209 ####Utility Inspector: UNA ARCE ([id number])[facility] (SBHLAB)[address] Potassium [Moles/Vol] 3.6 mmol/L Normal 3.5-5.1 [facility] Comment on above: Result Comment: [facility] potassium values may be up to 0.5 mmol/L lower than serum values. Performed By: #### L AB17, SDS869, [id number] ####Utility Inspector: UNA ARCE ([id number])[facility] (SBHLAB)[address] [place] [address] [place] Protein [Mass/Vol] 6.1 g/dL Low 6.4-8.3 [facility] Comment on above: Performed By: #### L AB17, [id number], SCB264 ####Utility Inspector: UNA ARCE ([id number])[facility] (SBHLAB)[address] Sodium [Moles/Vol] 139 mmol/L Normal 136-145 [facility] Comment on above: Performed By: #### L AB17, IOP470, [id number] ####Utility Inspector: UNA ARCE ([id number])[facility] (SBHLAB)[address] Urea nitrogen [Mass/Vol] 36 mg/dL High 9-23 [facility] Comment on above: Performed By: #### L AB17, [id number], RFH170 ####Utility Inspector: UNA ARCE ([id number])[facility] (SBHLAB)[address] Comprehensive metabolic 1998 panelon 04-11-2025 Albumin [Mass/Vol] 2.4 g/dL Low 3.4 - 4.8 g/dL [facility] ALP [Catalytic activity/Vol] 53 U/L 40 - 150 U/L [facility] ALT [Catalytic activity/Vol] U/L NINF - 40 U/L [facility] Anion gap [Moles/Vol] 10 mmol/L 3 - 13 mmol/L [facility] AST [Catalytic activity/Vol] 18 U/L [facility] U/L [facility] Bilirubin [Mass/Vol] 0.7 mg/dL NINF - 1.2 mg/dL [facility] Calcium [Mass/Vol] 8.1 mg/dL Low 8.8 - 10. 0 mg/dL [facility] Chloride [Moles/Vol] 94 mmol/L Low 98 - 10 7 mmol/L [facility] CO2 [Moles/Vol] 35 mmol/L High 23 - 31 mmol/L [facility] Creatinine [Mass/Vol] 1.55 mg/dL High 0.72 - 1.25 mg/dL [facility] GFR/1.73 sq M.predicted (S/P/Bld) [Vol rate/Area] 42.5 mL/min Low - PINF [facility] Glucose [Mass/Vol] 103 mg/dL 82 - 115 mg/dL [facility] Interpretation and review of laboratory results Abnormal [facility] Potassium [Moles/Vol] 3.6 mmol/L 3.5 - 5.1 mmol/L [facility] Protein [Mass/Vol] 6.1 g/dL Low 6.4 - 8.3 g/dL [facility] Sodium [Moles/Vol] 139 mmol/L 136 - 145 mmol/L [facility] Urea nitrogen [Mass/Vol] 36 mg/dL High 9 - 23 mg/d L [facility] Laboratory - Chemistry and C hemistry - challengeon 04-11-2025 Magnesium [Mass/Vol] 1.7 mg/dL 1.6 - 2 .6 mg/dL [facility] Laboratory - Hematology and Cell countson 04-11-2025 Anisocytosis Ql (Bld) Moderate Abnormal (none) [facility] Basophilic stippling LM Ql (Bld) Slight Abnormal (none) [facility] Basophils (Bld) [#/Vol] 0.1 10*3/uL 0.0 - 0.2 10*3/uL [facility] Basophils/100 WBC (Bld) 1 % 0 - 2 % S [facility] Dacrocytes LM Ql (Bld) Rare Abnormal (none) [facility] Eosinophils (Bld) [#/Vol] 0.1 10*3/uL 0.0 - 0.5 10*3/uL [facility] Eosinophils/100 WBC (Bld) 1 % 0 - 6 % [facility] Hypochromia Ql (Bld) Slight Abnormal (none) [facility] Lymphocytes (Bld) [#/Vol] 1.4 10*3/uL 1.0 - 4.3 10*3/uL [facility] Lymphocytes/100 WBC (Bld) 10 % Low 15 - 45 % [facility] Monocytes (Bld) [#/Vol] 1.8 10*3/uL High 0.0 - 0.9 10*3/uL [facility] Monocytes/100 WBC (Bld) 13 % 5 - 13 % [facility] Neutrophils (Bld) [#/Vol] 10.5 10*3/uL High 1.8 - 7.5 10*3/uL [facility] Ovalocytes LM Ql (Bld) Slight Abnormal (none) [facility] Poikilocytosis LM Ql (Bld) Slight Abnormal (none) [facility] Polychromasia LM Ql (Bld) Slight Abnormal (none) [facility] RBC morphology finding Nom (Bld) abnormal [facility] Segmented neutrophils/100 WBC (Bld) 76 % 38 - 82 % [facility] Stomatocytes LM Ql (Bld) Slight Abnormal (none) [facility] Target cells LM Ql (Bld) Slight Abnormal (none) [facility] MAGNESIUMon 04-11-2025 Magnesium [Mass/Vol] 1.7 mg/dL Normal 1.6-2.6 [facility] Comment on above: Result Comment: ORDE R COMMENTS:Higher values can be expected in females during menses. Performed By: #### L [id number], [id number], [id number] ####Utility Inspector: NUA ARCE ([id number])[facility] [place] ([facility])[address] MANUAL DIFFERENTIAL (CELLAVI BANDAR)on 04-11-2025 ANISOCYTOSIS PRESENCE IN BLOOD BY LIGHT MICROSCOPY Moderate Abnormal (none) [facility] Comment on above: Performed By: #### L [id number], [id number] ####Utility Inspector: UNA ARCE ([id number])[facility] [place] (SB[facility])[address] BAND NEUTROPHILS TOTAL PER COUNTED LEUKOCYTES BY MANUAL COUNT Normal [facility] Comment on above: Performed By: #### L [id number], [id number] ####Utility Inspector: UNA ARCE ([id number])[facility] [place] (SB[facility])[address] BASOPHILIC STIPPLING PRESENCE IN BLOOD BY LIGHT MICROSCOPY Slight Abnormal (none) [facility] Comment on above: Performed By: #### L [id number], [id number] ####Utility Inspector: UNA ARCE ([id number])[facility] [place] (SB[facility])[address] BASOPHILS (10*3/UL) IN BLOOD-CELLAVISION 0.1 10*3/uL Normal 0.0-0.2 [facility] Comment on above: Performed By: #### L [id number], [id number] ####Utility Inspector: UNA ARCE ([id number])[facility] [place] ([facility])[address] BASOPHILS TOTAL PER COUNTED LEUKOCYTES BY MANUAL COUNT 1 Normal [facility] Comment on above: Performed By: #### L [id number], [id number] ####Utility Inspector: UNA ARCE ([id number])[facility] [place] (SB[facility]AB)[address] [place] [address] [place] BASOPHILS/100 LEUKOCYTES IN BLOOD-CELLAVISION 1 % Normal 0-2 [facility] Comment on above: Performed By: #### L [id number], [id number] ####Utility Inspector: UNA ARCE ([id number])[facility] [place] (SB[facility])[address] [place] [address] [place] BLASTS TOTAL PER COUNTED LEUKOCYTES BY MANUAL COUNT Normal [facility] Comment on above: Performed By: #### L [id number], [id number] ####Utility Inspector: UNA MOHRCER ([id number])[facility] [place] (SB[facility])[address] [place] [address] [place] DACROCYTES PRESENCE IN BLOOD BY LIGHT MICROSCOPY Rare Abnormal (none) [facility] Comment on above: Performed By: #### L [id number], [id number] ####Utility Inspector: UNA ARCE ([id number])[facility] [place] (SB[facility])[address] [place] [address] [place] EOSINOPHILS (10*3/UL) IN BLOOD-CELLAVISION 0.1 10*3/uL Normal 0.0-0.5 [facility] Comment on above: Performed By: #### L [id number], [id number] ####Utility Inspector: UNA ARCE ([id number])[facility] [place] (SB[facility])[address] [place] [address] [place] EOSINOPHILS TOTAL PER COUNTED LEUKOCYTES BY MANUAL COUNT 1 Normal 0-1 [facility] Comment on above: Performed By: #### L [id number], [id number] ####Utility Inspector: UNA ARCE ([id number])[facility] [place] ([facility])[address] [place] [address] [place] EOSINOPHILS/100 LEUKOCYTES IN BLOOD-CELLAVISION 1 % Normal 0-6 [facility] Comment on above: Performed By: #### L [id number], [id number] ####Utility Inspector: UNA ARCE ([id number])[facility] [place] ([facility])[address] HYPOCHROMIA (PRESENCE) IN BLOOD BY LIGHT MICROSCOPY Slight Abnormal (none) [facility] Comment on above: Performed By: #### L [id number], [id number] ####Utility Inspector: UNA ARCE ([id number])[facility] [place] ([facility])[address] [place] [address] [place] LYMPHOCYTES (10*3/UL) IN BLOOD-CELLAVISION 1.4 10*3/uL Normal 1.0-4.3 [facility] Comment on above: Performed By: #### L [id number], [id number] ####Utility Inspector: UNA ARCE ([id number])[facility] [place] ([facility])[address] LYMPHOCYTES TOTAL PER COUNTED LEUKOCYTES BY MANUAL COUNT 10 Normal [facility] Comment on above: Performed By: #### L [id number], [id number] ####Utility Inspector: UNA ARCE ([id number])[facility] (SBHLAB)[address] [place] [address] [place] LYMPHOCYTES/100 LEUKOCYTES IN BLOOD-CELLAVISION 10 % Low 15-45 [facility] Comment on above: Performed By: #### L [id number], [id number] ####Utility Inspector: UNA ARCE ([id number])[facility] BARBUNIVERSITY [facility]OSPITALSN (SBHLAB)[address] [place] [address] [place] METAMYELOCYTES TOTAL PER COUNTED LEUKOCYTES BY MANUAL COUNT Normal [facility] Comment on above: Performed By: #### L [id number], [id number] ####Utility Inspector: UNA ARCE ([id number])[facility] [place] (SB[facility])[address] [place] [address] [place] MONOCYTES (10*3/UL) IN BLOOD-CELLAVISION 1.8 10*3/uL High 0.0-0.9 [facility] Comment on above: Performed By: #### L [id number], [id number] ####Utility Inspector: UNA ARCE ([id number])[facility] [place] (SBHLAB)[address] [place] [address] [place] MONOCYTES TOTAL PER COUNTED LEUKOCYTES BY MANUAL COUNT 13 Normal [facility] Comment on above: Performed By: #### L [id number], [id number] ####Utility Inspector: UNA MOHRCER ([id number])[facility] [place] (SBHLAB)[address] [place] [address] [place] MONOCYTES/100 LEUKOCYTES IN BLOOD-LUCIANA 13 % Normal 5-13 [facility] Comment on above: Performed By: #### L [id number], [id number] ####Utility Inspector: UNA MOHRCER ([id number])[facility] [place] ([facility])[address] MYELOCYTES COUNTED BY MANUAL COUNT Normal [facility] Comment on above: Performed By: #### L [id number], [id number] ####Utility Inspector: UNA ARCE ([id number])[facility] [place] (SBHLAB)[address] [place] [address] [place] NEUTROPHILS TOTAL PER COUNTED LEUKOCYTES BY MANUAL COUNT 79 Normal [facility] Comment on above: Performed By: #### L [id number], [id number] ####Utility Inspector: UNA ARCE ([id number])[facility] [place] (SB[facility])[address] [place] [address] [place] OVALOCYTES PRESENCE IN BLOOD BY LIGHT MICROSCOPY Slight Abnormal (none) [facility] Comment on above: Performed By: #### L [id number], [id number] ####Utility Inspector: UNA MOHRCER ([id number])[facility] [place] (SBHLAB)[address] [place] [address] [place] POIKILOCYTOSIS (PRESENCE) IN BLOOD BY LIGHT MICROSCOPY Slight Abnormal (none) [facility] Comment on above: Performed By: #### L [id number], [id number] ####Utility Inspector: UNA ARCE ([id number])[facility] [place] (SBHLAB)[address] [place] [address] [place] POLYCHROMASIA IN BLOOD BY LIGHT MICROSCOPY Slight Abnormal (none) [facility] Comment on above: Performed By: #### L [id number], [id number] ####Utility Inspector: UNA ARCE ([id number])[facility] [place] ([facility])[address] [place] [address] [place] PROMYELOCYTES TOTAL PER COUNTED LEUKOCYTES BY MANUAL COUNT Normal [facility] Comment on above: Performed By: #### L [id number], [id number] ####Utility Inspector: UNA ARCE ([id number])[facility] [place] (SB[facility])[address] [place] [address] [place] RBC MORPHOLOGY IN BLOOD abnormal Normal [facility] Comment on above: Performed By: #### L [id number], [id number] ####Utility Inspector: UNA ARCE ([id number])[facility] [place] ([facility])[address] [place] [address] [place] SEGMENTED NEUTROPHILS (10*3/UL) IN BLOOD-CELLAVISION 10.5 10*3/uL High 1.8-7.5 [facility] Comment on above: Performed By: #### L [id number], [id number] ####Utility Inspector: UNA ARCE ([id number])[facility] [place] (SB[facility])[address] [place] [address] [place] SEGMENTED NEUTROPHILS/100 LEUKOCYTES-CE 76 % Normal 38-82 [facility] Comment on above: Performed By: #### L [id number], [id number] ####Utility Inspector: UNA ARCE ([id number])[facility] [place] (SB[facility])[address] [place] [address] [place] STOMATOCYTES IN BLOOD BY LIGHT MICROSCOPY Slight Abnormal (none) [facility] Comment on above: Performed By: #### L [id number], [id number] ####Utility Inspector: UNA ARCE ([id number])[facility] [place] ([facility])[address] [employer] CELLS IN BLOOD BY LIGHT MICROSCOPY Slight Abnormal (none) [facility] Comment on above: Performed By: #### L [id number], [id number] ####Utility Inspector: UNA ARCE ([id number])[facility] [place] (SBHLAB)[address] UNCLASSIFIED CELLS TOTAL PER COUNTED LEUKOCYTES BY MANUAL COUNT Normal [facility] Comment on above: Performed By: #### L [id number], [id number] ####Utility Inspector: UNA ARCE ([id number])[facility] [place] (SBHLAB)[address] VARIANT LYMPHOCYTES TOTAL PER COUNTED LEUKOCYTES BY MANUAL COUNT Normal [facility] Comment on above: Performed By: #### L [id number], [id number] ####Utility Inspector: UNA ARCE ([id number])[facility] (SBHLAB)[address] Magnesium [Mass/Vol]on 04-11 [facility] No Panel Informationon 04-11 Basophils Manual 1 [facility] He alth Eosinophils Manual 1 0 - 1 [facility] Interpretation and review of laboratory results Abnormal [facility] Lymphocytes Manual 10 [facility] Monocytes Manual 13 [facility] alth Neutrophils Manual 79 [facility] Interpretation and review of laboratory results Normal [facility] PHOSPHORUSon 04-11-2025 Phosphate [Mass/Vol] 2.5 mg/dL Normal 2.3-4.7 [facility] Comment on above: Performed By: #### L [id number], [id number], [id number] ####Utility Inspector: UNA ARCE ([id number])[facility] LAURACHRISTINAN (SBHLAB)[address] [place] [address] [place] Phosphate [Moles/Vol]on Phosphate [Mass/Vol] 2.5 mg/dL 2.3 - 4 .7 mg/dL [facility] Progress Noteon 04-11-2025 Progress [facility] Normal [facility] Progress Note Normal [facility] Progress Note Normal [facility] XR Chest Single viewon 04-11 [facility] RADIOLOGY SYSTEM [facility] RADIOLOGY [facility] Radiology Study observation (narrative) Lynette ander XR Chest Single viewOrdered By: Katalina Corona on 04-11-2025 [facility] Work Phone: [phone] 04-10-2025 [id number] Normal [facility] CBC W Auto Differential pane l (Bld)on 04-10-2025 Erythrocyte distribution width (RBC) [Ratio] 22.9 % High 11.5 - 15.0 % [facility] Hematocrit (Bld) [Volume fraction] 26.1 % Low 40.0 - 52.0 % [facility] Hemoglobin (Bld) [Mass/Vol] 7.2 g/dL Low 13.0 - 18.0 g/dL [facility] Interpretation and review of laboratory results Abnormal [facility] MCH (RBC) [Entitic mass] 22.6 pg Low 26. 0 - 34.0 pg [facility] MCHC (RBC) [Mass/Vol] 27.6 % Low 30.5 - 36.0 % [facility] MCV (RBC) [Entitic vol] 82.1 fL 77.0 - 99.0 fL [facility] Platelet mean volume (Bld) [Entitic vol] 9.1 fL 9.0 - 12.7 fL [facility] Platelets (Bld) [#/Vol] 294 10*3/uL 140 - 440 10*3/uL [facility] RBC (Bld) [#/Vol] 3.18 10*6/uL Low 4.40 - 5.9 0 10*6/uL [facility] WBC (Bld) [#/Vol] 12.4 10*3/uL High 3.6 - 10.7 10*3/uL [facility] CBC WITH AUTO DIFFERENTIALon 04-10-2025 Erythrocyte distribution width (RBC) [Ratio] 22.9 % High 11.5-15.0 [facility] Comment on above: Performed By: #### L [id number], [id number] ####Utility Inspector: UNA ARCE ([id number])[facility] [place] (SBAB)[address] Hematocrit (Bld) [Volume fraction] 26.1 % Low 40.0-52.0 [facility] Comment on above: Performed By: #### L [id number], [id number] ####Utility Inspector: UAN ARCE ([id number])[facility] (SBHLAB)[address] Hemoglobin (Bld) [Mass/Vol] 7.2 g/dL Low 13.0-18.0 [facility] Comment on above: Performed By: #### L [id number], [id number] ####Utility Inspector: UNA ARCE ([id number])[facility] [place] (SBHLAB)[address] MCH (RBC) [Entitic mass] 22.6 pg Low 26.0-34.0 [facility] Comment on above: Performed By: #### L [id number], [id number] ####Utility Inspector: UNA ARCE ([id number])[facility] [place] (SBHLAB)[address] MCHC 27.6 % Low 30.5-36.0 [facility] Comment on above: Performed By: #### L [id number], [id number] ####Utility Inspector: UNA ARCE ([id number])[facility] [place] (SBHLAB)[address] MCV (RBC) [Entitic vol] 82.1 fL Normal 77.0-99.0 [facility] Comment on above: Performed By: #### L [id number], [id number] ####Utility Inspector: UNA ARCE ([id number])[facility] BARBUNIVERSITY OF NEW MEXICO HOSPITALSMarisol (SBHLAB)[address] Platelet mean volume (Bld) [Entitic vol] 9.1 fL Normal 9.0-12.7 [facility] Comment on above: Performed By: #### L [id number], [id number] ####Utility Inspector: UNA ARCE ([id number])LYNETTE SANCHEZCHRISTINAN (SBHLAB)[address] Platelets (Bld) [#/Vol] 294 10*3/uL Normal 140-440 [facility] Comment on above: Performed By: #### L [id number], [id number] ####Utility Inspector: UNA ARCE ([id number])[facility]N (SBHLAB)[address] RBC (Bld) [#/Vol] 3.18 10*6/uL Low 4.40-5.90 [facility] Comment on above: Performed By: #### L [id number], [id number] ####Utility Inspector: UNA ARCE ([id number])[facility] [place] (SBHLAB)[address] WBC (Bld) [#/Vol] 12.4 10*3/uL High 3.6-10.7 [facility] Comment on above: Performed By: #### L [id number], [id number] ####Utility Inspector: UNA ARCE ([id number])[facility] BASHIRN (SBHLAB)[address] COMPREHENSIVE METABOLIC PANE Anant 04-10-2025 Albumin [Mass/Vol] 2.2 g/dL Low 3.4-4.8 [facility] Comment on above: Performed By: #### L ABTerrance, LAB17, [id number] ####Utility Inspector: UNA ARCE ([id number])[facility] [place] (SB[facility])[address] ALP [Catalytic activity/Vol] 50 U/L Normal 40-150 [facility] Comment on above: Performed By: #### L AB113, LAB17, [id number] ####Utility Inspector: UNA ARCE ([id number])[facility] [place] (SB[facility])[address] ALT [Catalytic activity/Vol] U/L Normal <40 [facility] Comment on above: Performed By: #### L ABTerrance, LAB17, [id number] ####Utility Inspector: UNA ARCE ([id number])[facility] [place] (SB[facility])[address] Anion gap [Moles/Vol] 12 mmol/L Normal 3-13 [facility] Comment on above: Performed By: #### Gilbert ABTerrance, LAB17, [id number] ####Utility Inspector: UNA ARCE ([id number])[facility] [place] ([facility])[address] AST [Catalytic activity/Vol] 16 U/L Normal <34 [facility] Comment on above: Performed By: #### Gilbert ABTerrance, LAB17, [id number] ####Utility Inspector: UNA ARCE ([id number])[facility] [place] (SB[facility])[address] Bilirubin [Mass/Vol] 0.6 mg/dL Normal <1.2 [facility] Comment on above: Performed By: #### Gilbert RAMSEY, LAB17, [id number] ####Utility Inspector: UNA ARCE ([id number])[facility] [place] ([facility])[address] Calcium [Mass/Vol] 8.0 mg/dL Low 8.8-10.0 [facility] Comment on above: Performed By: #### Gilbert RAMSEY, LAB17, [id number] ####Utility Inspector: UNA ARCE ([id number])[facility] [place] (SB[facility])[address] [place] [address] [place] Chloride [Moles/Vol] 95 mmol/L Low 98-107 [facility] Comment on above: Performed By: #### L ABTerrance, LAB17, [id number] ####Utility Inspector: UNA RACE ([id number])[facility] [place] (SB[facility])[address] [place] [address] [place] CO2 [Moles/Vol] 35 mmol/L High 23-31 [facility] Comment on above: Performed By: #### L AB113, LAB17, [id number] ####Utility Inspector: UNA ARCE ([id number])[facility] BASHIRN (SBHLAB)[address] Creatinine [Mass/Vol] 1.65 mg/dL High 0.72-1.25 [facility] Comment on above: Performed By: #### L ABTerrance, LAB17, [id number] ####Utility Inspector: UNA ARCE ([id number])[facility] BASHIRN (SBHLAB)[address] GLOMERULAR FILTRATION RATE ML/MIN/1.73 SQ M.PREDICTED 39.4 mL/min/1.73m*2 Low >60.0 [facility] Comment on above: Result Comment: Calc ulation based on the Chronic Kidney Disease Epidemiology Collaboration (CKD-EPI) equation refit without adjustment for race Performed By: #### Gilbert ABTerrance, LAB17, [id number] ####Utility Inspector: UNA ARCE ([id number])[facility] B[facility]N (SBHLAB)[address] Glucose [Mass/Vol] 98 mg/dL Normal 82-115 [facility] Comment on above: Performed By: #### Gilbert AB113, LAB17, [id number] ####Utility Inspector: UNA ARCE ([id number])[facility] SANCHEZCHRISTINAN (SBHLAB)[address] [place] [address] [place] Potassium [Moles/Vol] 3.2 mmol/L Low 3.5-5.1 [facility] Comment on above: Result Comment: [facility] potassium values may be up to 0.5 mmol/L lower than serum values. Performed By: #### L AB113, LAB17, SYC700 ####Utility Inspector: UNA ARCE ([id number])[facility] [place] (SBHLAB)[address] Protein [Mass/Vol] 5.5 g/dL Low 6.4-8.3 [facility] Comment on above: Performed By: #### L AB113, LAB17, [id number] ####Utility Inspector: UNA YAZMIN ([id number])[facility] [place] (SBHLAB)[address] Sodium [Moles/Vol] 142 mmol/L Normal 136-145 [facility] Comment on above: Performed By: #### Gilbert ABTerrance, LAB17, [id number] ####Utility Inspector: UNA YAZMIN ([id number])[facility] SANCHEZUNIVERSITY OF NEW MEXICO HOSPITALSN (SBHLAB)[address] Urea nitrogen [Mass/Vol] 32 mg/dL High 9-23 [facility] Comment on above: Performed By: #### Gilbert RAMSEY, LAB17, [id number] ####Utility Inspector: UNA ARCE ([id number])[facility] (SBHLAB)[address] Comprehensive metabolic 1998 panelon 04-10-2025 Albumin [Mass/Vol] 2.2 g/dL Low 3.4 - 4.8 g/dL [facility] ALP [Catalytic activity/Vol] 50 U/L 40 - 150 U/L [facility] ALT [Catalytic activity/Vol] U/L [facility] U/L [facility] Anion gap [Moles/Vol] 12 mmol/L 3 - 13 mmol/L [facility] AST [Catalytic activity/Vol] 16 U/L [facility] - 34 U/L [facility] Bilirubin [Mass/Vol] 0.6 mg/dL NINF - 1.2 mg/dL [facility] Calcium [Mass/Vol] 8 mg/dL Low 8.8 - 10. 0 mg/dL [facility] Chloride [Moles/Vol] 95 mmol/L Low 98 - 10 7 mmol/L [facility] CO2 [Moles/Vol] 35 mmol/L High 23 - 31 mmol/L [facility] Creatinine [Mass/Vol] 1.65 mg/dL High 0.72 - 1.25 mg/dL [facility] GFR/1.73 sq M.predicted (S/P/Bld) [Vol rate/Area] 39.4 mL/min Low - PINF [facility] Glucose [Mass/Vol] 98 mg/dL 82 - 115 mg/dL [facility] Interpretation and review of laboratory results Abnormal [facility] Potassium [Moles/Vol] 3.2 mmol/L Low 3.5 - 5.1 mmol/L [facility] Protein [Mass/Vol] 5.5 g/dL Low 6.4 - 8.3 g/dL [facility] Sodium [Moles/Vol] 142 mmol/L 136 - 145 mmol/L [facility] Urea nitrogen [Mass/Vol] 32 mg/dL High 9 - 23 mg/d L [facility] Laboratory - Chemistry and C hemistry - challengeon 04-10-2025 Magnesium [Mass/Vol] 1.7 mg/dL 1.6 - 2 .6 mg/dL [facility] Laboratory - Hematology and Cell countson 04-10-2025 Anisocytosis Ql (Bld) Slight Abnormal (none) [facility] Band form neutrophils (Bld) [#/Vol] 0.2 10*3/uL High NINF - 0.0 10*3/uL [facility] Band form neutrophils/100 WBC (Bld) 2 % High NINF - 0 % [facility] Basophils (Bld) [#/Vol] 0.5 10*3/uL High 0.0 - 0.2 10*3/uL [facility] Basophils/100 WBC (Bld) 4 % High 0 - 2 % [facility] Eosinophils (Bld) [#/Vol] 0.5 10*3/uL 0.0 - 0.5 10*3/uL [facility] Eosinophils/100 WBC (Bld) 4 % 0 - 6 % [facility] Lymphocytes (Bld) [#/Vol] 0.9 10*3/uL Low 1.0 - 4.3 10*3/uL [facility] Lymphocytes/100 WBC (Bld) 7 % Low 15 - 45 % [facility] Monocytes (Bld) [#/Vol] 0.5 10*3/uL 0.0 - 0.9 10*3/uL [facility] Monocytes/100 WBC (Bld) 4 % Low 5 - 13 % [facility] Myelocytes (Bld) [#/Vol] 0.1 10*3/uL High SELENE F - 0.0 10*3/uL [facility] Myelocytes/100 WBC (Bld) 1 % High NINF - 0 % [facility] Neutrophils (Bld) [#/Vol] 9.9 10*3/uL High 1.8 - 7.5 10*3/uL [facility] Poikilocytosis LM Ql (Bld) Slight Abnormal (none) [facility] RBC morphology finding Nom (Bld) abnormal [facility] Segmented neutrophils/100 WBC (Bld) 78 % 38 - 82 % [facility] Stomatocytes LM Ql (Bld) Moderate Abnormal (none) [facility] MAGNESIUMon 04-10-2025 Magnesium [Mass/Vol] 1.7 mg/dL Normal 1.6-2.6 [facility] Comment on above: Result Comment: YARELI R COMMENTS:Higher values can be expected in females during menses. Performed By: #### L AB113, LAB17, [id number] ####Utility Inspector: UNA ARCE ([id number])[facility] ([facility])[address] [place] [address] MANUAL DIFFERENTIAL (CELLAVI BANDAR)on 04-10-2025 ANISOCYTOSIS PRESENCE IN BLOOD BY LIGHT MICROSCOPY Slight Abnormal (none) [facility] Comment on above: Performed By: #### L [id number], [id number] ####Utility Inspector: UNA ARCE ([id number])[facility])[address] [place] [address] BAND NEUTROPHILS TOTAL PER COUNTED LEUKOCYTES BY MANUAL COUNT 2 Normal [facility] Comment on above: Performed By: #### L [id number], [id number] ####Utility Inspector: UNA ARCE ([id number])[facility] [place] [address] [place] BANDS (10*3/UL) IN BLOOD-CELLAVISION 0.2 10*3/uL High <=0.0 [facility] Comment on above: Performed By: #### L [id number], [id number] ####Utility Inspector: UNA ARCE ([phone])[facility] ([facility])[address] [place] [address] [place] BASOPHILS (10*3/UL) IN BLOOD-CELLAVISION 0.5 10*3/uL High 0.0-0.2 [facility] Comment on above: Performed By: #### L [id number], [id number] ####Utility Inspector: UNA ARCE ([id number])[facility] ([facility])[address] [place] [address] [place] BASOPHILS TOTAL PER COUNTED LEUKOCYTES BY MANUAL COUNT 4 Normal [facility] Comment on above: Performed By: #### L [id number], [id number] ####Utility Inspector: UNA ARCE ([id number])[facility] [place] [facility])[address] [place] [address] [place] BASOPHILS/100 LEUKOCYTES IN BLOOD-CELLAVISION 4 % High 0-2 [facility] Comment on above: Performed By: #### L [id number], [id number] ####Utility Inspector: UNA ARCE ([id number])[facility] [place] ([facility])[address] BLASTS TOTAL PER COUNTED LEUKOCYTES BY MANUAL COUNT [facility] Comment on above: Performed By: #### L [id number], [id number] ####Utility Inspector: UNA ARCE ([id number])[facility] [place] ([facility])[address] [place] [address] [place] EOSINOPHILS (10*3/UL) IN BLOOD-CELLAVISION 0.5 10*3/uL Normal 0.0-0.5 [facility] Comment on above: Performed By: #### L [id number], [id number] ####Utility Inspector: UNA ARCE ([id number])[facility] [place] ([facility])[address] [place] [address] [place] EOSINOPHILS TOTAL PER COUNTED LEUKOCYTES BY MANUAL COUNT High 0-1 [facility] Comment on above: Performed By: #### L [id number], [id number] ####Utility Inspector: UNA ARCE ([id number])[facility] [place] ([facility])[address] [place] [address] [place] EOSINOPHILS/100 LEUKOCYTES IN BLOOD-CELLAVISION 4 % Normal 0-6 [facility] Comment on above: Performed By: #### L [id number], [id number] ####Utility Inspector: UNA ARCE ([id number])[facility] [place] ([facility])[address] LYMPHOCYTES (10*3/UL) IN BLOOD-CELLAVISION 0.9 10*3/uL Low 1.0-4.3 [facility] Comment on above: Performed By: #### L [id number], [id number] ####Utility Inspector: UNA ARCE ([id number])[facility] [place] ([facility])[address] LYMPHOCYTES TOTAL PER COUNTED LEUKOCYTES BY MANUAL COUNT 7 Normal [facility] Comment on above: Performed By: #### L [id number], [id number] ####Utility Inspector: UNA ARCE ([id number])[facility] [place] ([facility])[address] [place] [address] [place] LYMPHOCYTES/100 LEUKOCYTES IN BLOOD-CELLAVISION 7 % Low 15-45 [facility] Comment on above: Performed By: #### L [id number], [id number] ####Utility Inspector: UNA ARCE ([id number])[facility] (SBHLAB)[address] METAMYELOCYTES TOTAL PER COUNTED LEUKOCYTES BY MANUAL COUNT [facility] Comment on above: Performed By: #### L [id number], [id number] ####Utility Inspector: UNA ARCE ([id number])[facility] [place] ([facility])[address] [place] [address] [place] MONOCYTES (10*3/UL) IN BLOOD-CELLAVISION 0.5 10*3/uL Normal 0.0-0.9 [facility] Comment on above: Performed By: #### L [id number], [id number] ####Utility Inspector: UNA ARCE ([id number])[facility] [place] (SBHLAB)[address] [place] [address] [place] MONOCYTES TOTAL PER COUNTED LEUKOCYTES BY MANUAL COUNT 4 Normal [facility] Comment on above: Performed By: #### L [id number], [id number] ####Utility Inspector: UNA ARCE ([id number])[facility] [place] (SBHLAB)[address] [place] [address] [place] MONOCYTES/100 LEUKOCYTES IN BLOOD-LUCIANA 4 % Low 5-13 [facility] Comment on above: Performed By: #### L [id number], [id number] ####Utility Inspector: UNA ARCE ([id number])[facility] [place] (SBHLAB)[address] [place] [address] [place] MYELOCYTES (10*3/UL) IN BLOOD-CELLAVISION 0.1 10*3/uL High <=0.0 [facility] Comment on above: Performed By: #### L [id number], [id number] ####Utility Inspector: UNA ARCE ([id number])[facility] [place] (SBHLAB)[address] [place] [address] [place] MYELOCYTES COUNTED BY MANUAL COUNT 1 Normal [facility] Comment on above: Performed By: #### L [id number], [id number] ####Utility Inspector: UNA ARCE ([id number])[facility] [place] ([facility])[address] [place] [address] [place] MYELOCYTES/100 LEUKOCYTES IN BLOOD-CELLAVISION 1 % High <=0 [facility] Comment on above: Performed By: #### L [id number], [id number] ####Utility Inspector: UNA ARCE ([id number])[facility] [place] (SBHLAB)[address] [place] [address] [place] NEUTROPHILS BAND FORM/100 LEUKOCYTES IN BLOOD-CELLAVISI 2 % High <=0 [facility] Comment on above: Performed By: #### L [id number], [id number] ####Utility Inspector: UNA ARCE ([id number])[facility] [place] (SBHLAB)[address] [place] [address] [place] NEUTROPHILS TOTAL PER COUNTED LEUKOCYTES BY MANUAL COUNT 79 Normal [facility] Comment on above: Performed By: #### L [id number], [id number] ####Utility Inspector: UNA ARCE ([id number])[facility] [place] ([facility])[address] [place] [address] [place] POIKILOCYTOSIS (PRESENCE) IN BLOOD BY LIGHT MICROSCOPY Slight Abnormal (none) [facility] Comment on above: Performed By: #### L [id number], [id number] ####Utility Inspector: UNA ARCE ([id number])[facility] [place] ([facility])[address] PROMYELOCYTES TOTAL PER COUNTED LEUKOCYTES BY MANUAL COUNT Normal [facility] Comment on above: Performed By: #### L [id number], [id number] ####Utility Inspector: UNA ARCE ([id number])[facility] [place] ([facility])[address] [place] [address] [place] RBC MORPHOLOGY IN BLOOD abnormal Normal [facility] Comment on above: Performed By: #### L [id number], [id number] ####Utility Inspector: UNA ARCE ([id number])[facility] [place] ([facility])[address] [place] [address] [place] SEGMENTED NEUTROPHILS (10*3/UL) IN BLOOD-CELLAVISION 9.9 10*3/uL High 1.8-7.5 [facility] Comment on above: Performed By: #### L [id number], [id number] ####Utility Inspector: UNA ARCE ([id number])[facility] [place] ([facility])[address] [place] [address] [place] SEGMENTED NEUTROPHILS/100 LEUKOCYTES-CE 78 % Normal 38-82 [facility] Comment on above: Performed By: #### L [id number], [id number] ####Utility Inspector: UNA ARCE ([id number])[facility] [place] ([facility])[address] [place] [address] [place] STOMATOCYTES IN BLOOD BY LIGHT MICROSCOPY Moderate Abnormal (none) [facility] Comment on above: Performed By: #### L [id number], [id number] ####Utility Inspector: UNA ARCE ([id number])[facility] (SBHLAB)[address] UNCLASSIFIED CELLS TOTAL PER COUNTED LEUKOCYTES BY MANUAL COUNT Normal [facility] Comment on above: Performed By: #### L [id number], [id number] ####Utility Inspector: UNA ARCE ([id number])[facility] (HLAB)[address] VARIANT LYMPHOCYTES TOTAL PER COUNTED LEUKOCYTES BY MANUAL COUNT Normal [facility] Comment on above: Performed By: #### L [id number], [id number] ####Utility Inspector: UNA ARCE ([id number])[facility] (HLAB)[address] [place] [address] [place] Magnesium [Mass/Vol]on 04-10 [facility] No Panel Informationon 04-10 Bands Manual 2 [facility] Basophils Manual 4 [facility] Eosinophils Manual 4 High 0 - 1 [facility] Interpretation and review of laboratory results Abnormal [facility] Lymphocytes Manual 7 [facility] Monocytes Manual 4 [facility] Myelocytes Manual 1 [facility] H ealth Neutrophils Manual 79 [facility] Interpretation and review of laboratory results Normal [facility] PHOSPHORUSon 04-10-2025 Phosphate [Mass/Vol] 2.6 mg/dL Normal 2.3-4.7 [facility] Comment on above: Performed By: #### L [id number], LAB17, [id number] ####Utility Inspector: UNA ARCE ([id number])[facility] (SBHLAB)[address] [place] [address] [place] Phosphate [Moles/Vol]on Phosphate [Mass/Vol] 2.6 mg/dL 2.3 - 4 .7 mg/dL [facility] Progress Noteon 04-10-2025 Progress Note [facility] Normal [facility] Progress Note Normal [facility] Progress Note Will assume care as patient is being transferred out of ICU. D/w Dr Lewis via secure chat Normal [facility] Progress Note Normal [facility] Progress Note Normal [facility] [id number] 04-09-2025 [id number] Normal [facility] [id number] Normal [facility] BODY FLUID CELL COUNT WITH R EFLEX DIFFon 04-09-2025 RBC, BODY FLUID (AUTOMATED) <0.002 High 0.000 [facility] Comment on above: Performed By: #### L [id number], [id number] ####Utility Inspector: UNA ARCE ([id number])[facility] (SBHLAB)[address] [place] [address] WBC, BODY FLUID (AUTOMATED) 0.341 x10*3/ul High <=0.005 [facility] Comment on above: Performed By: #### L [id number], [id number] ####Utility Inspector: UNA ARCE ([id number])[facility] (SBHLAB)[address] [place] [address] RBC, BODY FLUID (AUTOMATED) <0.002 High 0.000 [facility] Comment on above: Performed By: #### L [id number], [id number] ####Utility Inspector: UNA ARCE ([id number])[facility] (SBHL[facility])[address] [place] [address] WBC, BODY FLUID (AUTOMATED) 0.112 x10*3/ul High <=0.005 [facility] Comment on above: Performed By: #### L [id number], [id number] ####Utility Inspector: UNA ARCE ([id number])[facility] (SBHLAB)[address] [place] [address] BODY FLUID DIFFERENTIALon CELLS COUNTED TOTAL (#) IN BODY FLUID 100 Normal [facility] Comment on above: Performed By: #### L [id number], [id number] ####Utility Inspector: UNA ARCE ([id number])[facility] [place] (SBHLAB)[address] [place] [address] [place] LYMPHOCYTES/100 LEUKOCYTES IN BODY FLUID BY MAN CT 51 % Normal [facility] Comment on above: Performed By: #### L [id number], [id number] ####Utility Inspector: UNA ARCE ([id number])[facility] [place] (SBHLAB)[address] [place] [address] [place] MONOCYTES+MACROPHAGES/10 0 WBC IN BODY FLUID BY MAN CT 36 % Normal [facility] Comment on above: Performed By: #### L [id number], KQM695 ####Utility Inspector: UNA ARCE ([id number])[facility] [place] (SBHLAB)[address] [place] [address] [place] Neutrophils/100 WBC (Bld) 13 % Normal [facility] Comment on above: Performed By: #### L [id number], [id number] ####Utility Inspector: UNA ARCE ([id number])[facility] [place] (SBHLAB)[address] [place] [address] [place] CELLS COUNTED TOTAL (#) IN BODY FLUID 100 Normal [facility] Comment on above: Performed By: #### L [id number], [id number] ####Utility Inspector: UNA ARCE ([id number])[facility] [place] (SBHLAB)[address] [place] [address] [place] LYMPHOCYTES/100 LEUKOCYTES IN BODY FLUID BY MAN CT 31 % Normal [facility] Comment on above: Performed By: #### L [id number], APH579 ####Utility Inspector: NUA ARCE ([id number])[facility] [place] (SBHLAB)[address] [place] [address] [place] MESOTHELIAL CELLS/100 LEUKOCYTES IN BODY FLUID BY MANUAL COUNT 2 % Normal [facility] Comment on above: Performed By: #### L [id number], [id number] ####Utility Inspector: UNA ARCE ([id number])[facility] [place] (SBHLAB)[address] MONOCYTES+MACROPHAGES/10 0 WBC IN BODY FLUID BY MAN CT 37 % Normal [facility] Comment on above: Performed By: #### L [id number], [id number] ####Utility Inspector: UNA ARCE ([id number])[facility]URAUNIVERS[facility]ALS[facility] (SBHLAB)[address] Neutrophils/100 WBC (Bld) 30 % Normal [facility] Comment on above: Performed By: #### L [id number], [id number] ####Utility Inspector: UNA ARCE ([id number])[facility] (SBHLAB)[address] CBC W Auto Differential pane l (Bld)Ordered By: Jg Sarabia on 04-09-2025 Erythrocyte distribution width (RBC) [Ratio] 21.8 % High 11.5 - 15.0 % [employer] Hematocrit (Bld) [Volume fraction] 27.7 % Low 40.0 - 52.0 % [facility] [employer] Hemoglobin (Bld) [Mass/Vol] 7.5 g/dL Low 13.0 - 18.0 g/dL [facility] [employer] MCH (RBC) [Entitic mass] 22.6 pg Low 26. 0 - 34.0 pg [facility] [employer] MCHC (RBC) [Mass/Vol] 27.1 % Low 30.5 - 36.0 % [facility] MCV (RBC) [Entitic vol] 83.4 fL 77.0 - 99.0 fL [facility] [employer] Platelet mean volume (Bld) [Entitic vol] 9.4 fL 9.0 - 12.7 fL [facility] [employer] Platelets (Bld) [#/Vol] 279 10*3/uL 140 - 440 10*3/uL [facility] [employer] RBC (Bld) [#/Vol] 3.32 10*6/uL Low 4.40 - 5.9 0 10*6/uL [facility] [employer] WBC (Bld) [#/Vol] 11.2 10*3/uL High 3.6 - 10.7 10*3/uL [facility] [employer] CBC WITH AUTO DIFFERENTIALon 04-09-2025 Erythrocyte distribution width (RBC) [Ratio] 21.8 % High 11.5-15.0 [facility] Comment on above: Performed By: #### L [id number], [id number] ####Utility Inspector: UNA ARCE ([id number])[facility]HEZLU[facility] (SBHLAB)[address] Hematocrit (Bld) [Volume fraction] 27.7 % Low 40.0-52.0 [facility] Comment on above: Performed By: #### L [id number], [id number] ####Utility Inspector: UNA ARCE ([id number])[facility]ITAL[facility]CAREM[facility]iol (SBHLAB)[address] Hemoglobin (Bld) [Mass/Vol] 7.5 g/dL Low 13.0-18.0 [facility] Comment on above: Performed By: #### L [id number], [id number] ####Utility Inspector: UNA ARCE ([id number])[facility]ITAL[facility] SACNHEZCHRISTINAN (SBHLAB)[address] MCH (RBC) [Entitic mass] 22.6 pg Low 26.0-34.0 [facility] Comment on above: Performed By: #### L [id number], [id number] ####Utility Inspector: UNA ARCE ([id number])[facility]ITALAngel SANCHEZUNIVERSITY OF NEW MEXICO HOSPITALSMarisol (SBHLAB)[address] MCHC 27.1 % Low 30.5-36.0 [facility] Comment on above: Performed By: #### L [id number], [id number] ####Utility Inspector: UNA ARCE ([id number])[facility]ZUNIVERSITY [facility]PITALSN (SBHLAB)[address] MCV (RBC) [Entitic vol] 83.4 fL Normal 77.0-99.0 [facility] Comment on above: Performed By: #### L [id number], [id number] ####Utility Inspector: UNA ARCE ([id number])[facility] LAURACHRISTINAN (SBHLAB)[address] Platelet mean volume (Bld) [Entitic vol] 9.4 fL Normal 9.0-12.7 [facility] Comment on above: Performed By: #### L [id number], [id number] ####Utility Inspector: UNA ARCE ([id number])MONISHAA MCKAYN (SBHLAB)[address] Platelets (Bld) [#/Vol] 279 10*3/uL Normal 140-440 [facility] Comment on above: Performed By: #### L [id number], [id number] ####Utility Inspector: UNA ARCE ([id number])[facility] M[facility]N (SBHLAB)[address] RBC (Bld) [#/Vol] 3.32 10*6/uL Low 4.40-5.90 [facility] Comment on above: Performed By: #### L [id number], [id number] ####Utility Inspector: UNA ARCE ([id number])[facility]ITAL[facility]ZUNIVERSITY [facility]OSPITALSN (SBHLAB)[address] WBC (Bld) [#/Vol] 11.2 10*3/uL High 3.6-10.7 [facility] Comment on above: Performed By: #### L [id number], [id number] ####Utility Inspector: UNA ARCE ([id number])[facility] BARBUNIVERSITY OF NEW MEXICO HOSPITALSN (SBHLAB)[address] COMPREHENSIVE METABOLIC PANE Anant 04-09-2025 Albumin [Mass/Vol] 2.2 g/dL Low 3.4-4.8 [facility] Comment on above: Performed By: #### L AB103, KUW508, LAB17 ####Utility Inspector: UNA ARCE ([id number])[facility] LAURAUNIVERSITY OF [facility]OSPITALSN (SBHLAB)[address] ALP [Catalytic activity/Vol] 56 U/L Normal 40-150 [facility] Comment on above: Performed By: #### L AB103, GXK994, LAB17 ####Utility Inspector: UNA ARCE ([id number])[facility]ITAL[facility] [place] (SBHL[facility])[address] ALT [Catalytic activity/Vol] U/L Normal <40 [facility] Comment on above: Performed By: #### L AB103, HYA298, LAB17 ####Utility Inspector: UNA ARCE ([id number])[facility]ITAL[facility] S[facility]ZUNIVERSITY [facility]OSPITALSN (SBHLAB)[address] Anion gap [Moles/Vol] 10 mmol/L Normal 3-13 [facility] Comment on above: Performed By: #### L AB103, FLY300, LAB17 ####Utility Inspector: UNA ARCE ([id number])[facility] (SBHLAB)[address] AST [Catalytic activity/Vol] 18 U/L Normal <34 [facility] Comment on above: Performed By: #### L AB103, KWM755, LAB17 ####Utility Inspector: UNA ARCE ([id number])[facility] (SBHLAB)[address] Bilirubin [Mass/Vol] 0.7 mg/dL Normal <1.2 [facility] Comment on above: Performed By: #### L AB103, YXH752, LAB17 ####Utility Inspector: UNA ARCE ([id number])[facility] (SB[facility]AB)[address] Calcium [Mass/Vol] 8.1 mg/dL Low 8.8-10.0 [facility] Comment on above: Performed By: #### L AB103, PIB219, LAB17 ####Utility Inspector: UNA ARCE ([id number])[facility]ITAL[facility] SANC[facility]ZUNIVERSITY OF [facility] HOSPITALSN (SBHLAB)[address] Chloride [Moles/Vol] 98 mmol/L Normal 98-107 [facility] Comment on above: Performed By: #### L AB103, CWN474, LAB17 ####Utility Inspector: UNA YAZMIN ([id number])[facility] (SBHLAB)[address] CO2 [Moles/Vol] 34 mmol/L High 23-31 [facility] Comment on above: Performed By: #### L AB103, EMB153, LAB17 ####Utility Inspector: UNA BERMUDEZPEDRO ([id number])[facility] (SBHLAB)[address] Creatinine [Mass/Vol] 1.53 mg/dL High 0.72-1.25 [facility] Comment on above: Performed By: #### L AB103, QPQ484, LAB17 ####Utility Inspector: UNA BERMUDEZPEDRO ([id number])[facility] ([facility])[address] GLOMERULAR FILTRATION RATE ML/MIN/1.73 SQ M.PREDICTED 43.2 mL/min/1.73m*2 Low >60.0 [facility] Comment on above: Result Comment: Calc ulation based on the Chronic Kidney Disease Epidemiology Collaboration (CKD-EPI) equation refit without adjustment for race Performed By: #### L AB103, CIZ267, LAB17 ####Utility Inspector: UNA STAUFFERMELANIE ([id number])[facility] ([facility])[address] Glucose [Mass/Vol] 90 mg/dL Normal 82-115 [facility] Comment on above: Performed By: #### L AB103, HHO698, LAB17 ####Utility Inspector: UNA BERMUDEZPEDRO ([id number])[facility] ([facility])[address] Potassium [Moles/Vol] 3.5 mmol/L Normal 3.5-5.1 [facility] Comment on above: Result Comment: [facility] potassium values may be up to 0.5 mmol/L lower than serum values. Performed By: #### L AB103, WJR703, LAB17 ####Utility Inspector: UNAANJEL ARCE ([id number])[facility]ITALAngel [place] (SBHLAB)[address] [place] [address] Protein [Mass/Vol] 5.7 g/dL Low 6.4-8.3 [facility] Comment on above: Performed By: #### L AB103, [id number], LAB17 ####Utility Inspector: UNA YAZMIN ([id number])[facility]ITAL[facility] [place] (SB[facility])[address] Sodium [Moles/Vol] 142 mmol/L Normal 136-145 [facility] Comment on above: Performed By: #### L AB103, RDZ935, LAB17 ####Utility Inspector: UNAANJEL ARCE ([id number])[facility]ITALAngel [place] (SBHLAB)[address] [place] [address] Urea nitrogen [Mass/Vol] 25 mg/dL High 9-23 [facility] Comment on above: Performed By: #### L AB103, YMW727, LAB17 ####Utility Inspector: UNA YAZMIN ([id number])[facility]ITALAngel [place] (SBHLAB)[address] [place] [address] CULTURE ANAEROBICon 04-09-20 CULTURE ANAEROBIC [facility] Comment on above: Performed By: #### L AB233 ####Utility Inspector: ANAHY AVILA ([id number])[facility] ([facility])[address] [place] [address] CULTURE ANAEROBIC Normal [facility] Comment on above: Performed By: #### L AB233 ####Utility Inspector: ANAHY AVILA ([phone])[address] CULTURE, AEROBIC BACTERIA WI TH GRAM STAINon 04-09-2025 CULTURE, AEROBIC BACTERIA WITH GRAM STAIN Normal [facility] Comment on above: Performed By: #### L AB897 ####Utility Inspector: ANAHY AVILA ([id number])[facility] ([facility])[address] [place] [address] CULTURE, AEROBIC BACTERIA WITH GRAM STAIN Normal [facility] Comment on above: Performed By: #### L AB897 ####Utility Inspector: ANAHY AVILA ([id number])[facility] ([facility])[address] [place] [address] Comprehensive metabolic 1998 panelon 04-09-2025 Albumin [Mass/Vol] 2.2 g/dL Low 3.4 - 4.8 g/dL [facility] ALP [Catalytic activity/Vol] 56 U/L 40 - 150 U/L [facility] ALT [Catalytic activity/Vol] U/L NINF - 40 U/L [facility] Anion gap [Moles/Vol] 10 mmol/L 3 - 13 mmol/L [facility] AST [Catalytic activity/Vol] 18 U/L [facility] U/L [facility] Bilirubin [Mass/Vol] 0.7 mg/dL NINF - 1.2 mg/dL [facility] Calcium [Mass/Vol] 8.1 mg/dL Low 8.8 - 10. 0 mg/dL [facility] Chloride [Moles/Vol] 98 mmol/L 98 - 10 7 mmol/L [facility] CO2 [Moles/Vol] 34 mmol/L High 23 - 31 mmol/L [facility] Creatinine [Mass/Vol] 1.53 mg/dL High 0.72 - 1.25 mg/dL [facility] GFR/1.73 sq M.predicted (S/P/Bld) [Vol rate/Area] 43.2 mL/min Low - PINF [facility] Glucose [Mass/Vol] 90 mg/dL 82 - 115 mg/dL [facility] Interpretation and review of laboratory results Abnormal [facility] Potassium [Moles/Vol] 3.5 mmol/L 3.5 - 5.1 mmol/L [facility] Protein [Mass/Vol] 5.7 g/dL Low 6.4 - 8.3 g/dL [facility] Sodium [Moles/Vol] 142 mmol/L 136 - 145 mmol/L [facility] Urea nitrogen [Mass/Vol] 25 mg/dL High 9 - 23 mg/d L [facility] Consulton 04-09-2025 Consult Normal [facility] GLUCOSE, BODY FLUIDon 2024 GLUCOSE, BODY FLUID 132 mg/dL Normal [facility] Comment on above: Performed By: #### L AB188, TNL667, WMB887, KPI140 ####Utility Inspector: ANAHY AVILA ([id number])[facility])[address] [place] [address] GLUCOSE, BODY FLUID 92 mg/dL Normal [facility] Comment on above: Performed By: #### L AB196, GXD052, FQU412, TOU633 ####Utility Inspector: ANAHY AVILA ([id number])[facility] ([facility])[address] [place] [address] LACTATE DEHYDROGENASEon LDH [Catalytic activity/Vol] 181 U/L Normal 125-220 [facility] Comment on above: Performed By: #### L AB118, LAB96 ####Utility Inspector: UNA ARCE ([id number])[facility] (SBHLAB[address] LACTATE DEHYDROGENASE, BODY FLUIDon 04-09-2025 LACTATE DEHYDROGENASE, BODY FLUID BY LAC->PYR 95 U/L Normal [facility] Comment on above: Performed By: #### L AB188, CQV671, HPN678, YCL130 ####Utility Inspector: ANAHY AVILA ([id number])[facility] ([facility])[address] [place] [address] LACTATE DEHYDROGENASE, BODY FLUID BY LAC->PYR 95 U/L Normal [facility] Comment on above: Performed By: #### L AB196, [id number], GUN181, [id number] ####Utility Inspector: ANAHY AVILA ([id number])[facility])[address] [place] [address] TYPE OF BODY FLUID Pleural Fluid Normal [facility] Comment on above: Result Comment: YARELI [place] COMMENTS:This test was developed and its performance characteristics determined by [email or web address]. It has not been cleared or approved by the [place] Food and Drug Administration. This test was performed in a CLIA certified laboratory and is intended for clinical purposes.Exudates are defined as meeting one of the following criteria: (a) Pleural oiela-rk-givsq protein ratio of >0.5, (b) pleural jbful-sq-vxhfw LDH ratio of >0.6, or (c)a pleural fluid LDH activity that is >2/3 the upper limit of a normal serum LDH activity (Light???s criteria). Performed By: #### L [id number], [id number], TPF088, [id number] ####Utility Inspector: ANAHY AVILA ([id number])[facility] ([facility])[address] [place] [address] Result Comment: ORDE R COMMENTS:This test was developed and its performance characteristics determined by [email or web address]. It has not been cleared or approved [...] developed and its performance characteristics determined by [email or web address]. It has not been cleared or approved by the [place] Food and Drug Administration. This test was performed in a CLIA certified laboratory and is intended for clinical purposes.Pleural fabeq-nr-kqpmn protein ratio of >0.5 is one of Light???s criteria for an exudate. Heart failure associated misclassifications (by Light???s criteria) may be differentiated as transudative effusions by subsequently evaluating a dlwll-zh-alouqsf albumin gradient (>1.2 g/dL) and/or a buctk-is-cyaxa protein gradient (>3.1 g/dL). Result Comment: ORDE R COMMENTS:This test was developed and its performance characteristics determined by [email or web address]. It has not been cleared or approved by the US Food and Drug Administration. This test was performed in a CLIA certified laboratory and is intended for clinical purposes. Performed By: #### L [id number], [id number] ####Utility Inspector: UNA ARCE ([id number])[facility] [place] (SB[facility])[address] [place] [address] LDH Lactate to pyruvate reac tion [Catalytic activity/Vol]on 04-09-2025 Interpretation and review of laboratory results Normal [facility] Laboratoryon 04-09-2025 Fluid Nom (Body fld) Pleural Fluid S [facility] Fluid Nom (Body fld) Pleural Fluid S [facility] Fluid Nom (Body fld) Pleural Fluid S [facility] Fluid Nom (Body fld) Pleural Fluid S [facility] Fluid Nom (Body fld) Pleural Fluid S [facility] Fluid Nom (Body fld) Pleural Fluid S [facility] Fluid Nom (Body fld) Pleural Fluid S [facility] LaboratoryOrdered By: Anne cadena on 04-09-2025 Fluid Nom (Body fld) Pleural Fluid S [facility] LaboratoryOrdered By: Rian Spann on 04-09-2025 Fluid Nom (Body fld) Pleural Fluid S [facility] Laboratory - Chemistry and C hemistry - challengeon 04-09-2025 LDH (Body fld) [Catalytic activity/Vol] 95 U/L [facility] Glucose (Body fld) [Mass/Vol] 132 mg/dL [facility] Protein (Body fld) [Mass/Vol] 2.3 g/dL [facility] pH (Body fld) 7.747 [pH] [facility] pH (Body fld) 7.688 [pH] [facility] Protein (Body fld) [Mass/Vol] 2.5 g/dL [facility] Glucose (Body fld) [Mass/Vol] 92 mg/dL [facility] LDH Lactate to pyruvate reaction [Catalytic activity/Vol] 181 U/L 125 - 220 U/L [facility] Protein [Mass/Vol] 5.9 g/dL Low 6.4 - 8.3 g/dL [facility] Magnesium [Mass/Vol] 1.7 mg/dL 1.6 - 2 .6 mg/dL [facility] Laboratory - Chemistry and C hemistry - challengeOrdered By: Anne Miles on 04-09-2025 LDH (Body fld) [Catalytic activity/Vol] 95 U/L [facility] Laboratory - Hematology and Cell countson 04-09-2025 Cells Counted Total (Body fld) [#] 100 [facility] Lymphocytes/100 WBC (Bld) 51 % [facility] Macrophages/100 WBC Manual cnt (Body fld) 36 % [facility] Neutrophils/100 WBC (Body fld) 13 % [facility] RBC Auto (Body fld) [#/Vol] High [facility] WBC (Body fld) [#/Vol] 0.341 10*3/uL High NINF [facility] Cells Counted Total (Body fld) [#] 100 [facility] Lymphocytes/100 WBC (Bld) 31 % [facility] Macrophages/100 WBC Manual cnt (Body fld) 37 % [facility] Mesothelial cells/100 WBC Manual cnt (Body fld) 2 % [facility] Neutrophils/100 WBC (Body fld) 30 % [facility] Anisocytosis Ql (Bld) Moderate Abnormal (none) [facility] Eosinophils (Bld) [#/Vol] 0.6 10*3/uL High 0.0 - 0.5 10*3/uL [facility] Eosinophils/100 WBC (Bld) 5 % 0 - 6 % [facility] Hypochromia Ql (Bld) Moderate Abnormal (none) [facility] Lymphocytes (Bld) [#/Vol] 0.8 10*3/uL Low 1.0 - 4.3 10*3/uL [facility] Lymphocytes/100 WBC (Bld) 7 % Low 15 - 45 % [facility] Monocytes (Bld) [#/Vol] 2 10*3/uL High 0.0 - 0.9 10*3/uL [facility] Monocytes/100 WBC (Bld) 18 % High 5 - 13 % [facility] Neutrophils (Bld) [#/Vol] 8 10*3/uL High 1.8 - 7.5 10*3/uL [facility] Poikilocytosis LM Ql (Bld) Slight Abnormal (none) [facility] Polychromasia LM Ql (Bld) Slight Abnormal (none) [facility] RBC morphology finding Nom (Bld) abnormal [facility] Segmented neutrophils/100 WBC (Bld) 71 % 38 - 82 % [facility] Stomatocytes LM Ql (Bld) Moderate Abnormal (none) [facility] Laboratory - Hematology and Cell countsOrdered By: Kyara Valles on 04-09-2025 RBC Auto (Body fld) [#/Vol] High [facility] WBC (Body fld) [#/Vol] 0.112 10*3/uL High NINF [facility] MAGNESIUMon 04-09-2025 Magnesium [Mass/Vol] 1.7 mg/dL Normal 1.6-2.6 [facility] Comment on above: Result Comment: YARELI [place] COMMENTS:Higher values can be expected in females during menses. Performed By: #### L [id number], [id number], [id number] ####Utility Inspector: UNA ARCE ([id number])[facility] [place] (SBHLAB)[address] MANUAL DIFFERENTIAL (CELLAVI BANDAR)on 04-09-2025 ANISOCYTOSIS PRESENCE IN BLOOD BY LIGHT MICROSCOPY Moderate Abnormal (none) [facility] Comment on above: Performed By: #### L [id number], [id number] ####Utility Inspector: UNA ARCE ([id number])[facility] [place] (SBHL[facility])[address] BAND NEUTROPHILS TOTAL PER COUNTED LEUKOCYTES BY MANUAL COUNT Normal [facility] Comment on above: Performed By: #### L [id number], [id number] ####Utility Inspector: UNA ARCE ([id number])[facility] [place] (SB[facility])[address] BASOPHILS TOTAL PER COUNTED LEUKOCYTES BY MANUAL COUNT Normal [facility] Comment on above: Performed By: #### L [id number], [id number] ####Utility Inspector: UNA ARCE ([id number])[facility] [place] (SB[facility])[address] BLASTS TOTAL PER COUNTED LEUKOCYTES BY MANUAL COUNT Normal [facility] Comment on above: Performed By: #### L [id number], [id number] ####Utility Inspector: UNA ARCE ([id number])[facility] [place] (SBHLAB)[address] EOSINOPHILS (10*3/UL) IN BLOOD-CELLAVISION 0.6 10*3/uL High 0.0-0.5 [facility] Comment on above: Performed By: #### L [id number], [id number] ####Utility Inspector: UNA ARCE ([id number])[facility] [place] (SBHLAB)[address] [place] [address] [place] EOSINOPHILS TOTAL PER COUNTED LEUKOCYTES BY MANUAL COUNT 5 High 0-1 [facility] Comment on above: Performed By: #### L [id number], [id number] ####Utility Inspector: UNA ARCE ([id number])[facility] [place] (SBHLAB)[address] [place] [address] [place] EOSINOPHILS/100 LEUKOCYTES IN BLOOD-CELLAVISION 5 % Normal 0-6 [facility] Comment on above: Performed By: #### L [id number], [id number] ####Utility Inspector: UNA ARCE ([id number])[facility] [place] (SB[facility])[address] [place] [address] [place] HYPOCHROMIA (PRESENCE) IN BLOOD BY LIGHT MICROSCOPY Moderate Abnormal (none) [facility] Comment on above: Performed By: #### L [id number], [id number] ####Utility Inspector: UNA ARCE ([id number])[facility] [place] ([facility])[address] [place] [address] [place] LYMPHOCYTES (10*3/UL) IN BLOOD-CELLAVISION 0.8 10*3/uL Low 1.0-4.3 [facility] Comment on above: Performed By: #### L [id number], [id number] ####Utility Inspector: UNA ARCE ([id number])[facility] [place] (SB[facility])[address] [place] [address] [place] LYMPHOCYTES TOTAL PER COUNTED LEUKOCYTES BY MANUAL COUNT 7 Normal [facility] Comment on above: Performed By: #### L [id number], [id number] ####Utility Inspector: UNA ARCE ([id number])[facility] [place] ([facility])[address] [place] [address] [place] LYMPHOCYTES/100 LEUKOCYTES IN BLOOD-CELLAVISION 7 % Low 15-45 [facility] Comment on above: Performed By: #### L [id number], [id number] ####Utility Inspector: UNA ARCE ([id number])[facility] [place] (SB[facility])[address] [place] [address] [place] METAMYELOCYTES TOTAL PER COUNTED LEUKOCYTES BY MANUAL COUNT [facility] Comment on above: Performed By: #### L [id number], [id number] ####Utility Inspector: UNA ARCE ([id number])[facility] [place] ([facility])[address] [place] [address] [place] MONOCYTES (10*3/UL) IN BLOOD-CELLAVISION 2.0 10*3/uL High 0.0-0.9 [facility] Comment on above: Performed By: #### L [id number], [id number] ####Utility Inspector: UNA ARCE ([id number])[facility] [place] ([facility])[address] [place] [address] [place] MONOCYTES TOTAL PER COUNTED LEUKOCYTES BY MANUAL COUNT 19 [facility] Comment on above: Performed By: #### L [id number], [id number] ####Utility Inspector: UNA ARCE ([id number])[facility] [place] ([facility])[address] [place] [address] [place] MONOCYTES/100 LEUKOCYTES IN BLOOD-LUCIANA 18 % High 5-13 [facility] Comment on above: Performed By: #### L [id number], [id number] ####Utility Inspector: UNA ARCE ([id number])[facility] [place] ([facility])[address] [place] [address] [place] MYELOCYTES COUNTED BY MANUAL COUNT [facility] Comment on above: Performed By: #### L [id number], [id number] ####Utility Inspector: UNA ARCE ([id number])[facility] [place] ([facility])[address] [place] [address] [place] NEUTROPHILS TOTAL PER COUNTED LEUKOCYTES BY MANUAL COUNT 77 Normal [facility] Comment on above: Performed By: #### L [id number], [id number] ####Utility Inspector: UNA ARCE ([id number])[facility] [place] ([facility])[address] [place] [address] [place] POIKILOCYTOSIS (PRESENCE) IN BLOOD BY LIGHT MICROSCOPY Slight Abnormal (none) [facility] Comment on above: Performed By: #### L [id number], [id number] ####Utility Inspector: UNA ARCE ([id number])[facility] [place] ([facility])[address] POLYCHROMASIA IN BLOOD BY LIGHT MICROSCOPY Slight Abnormal (none) [facility] Comment on above: Performed By: #### L [id number], [id number] ####Utility Inspector: UNA STAUFFERMELANIE ([id number])[facility] [place] (SB[facility])[address] PROMYELOCYTES TOTAL PER COUNTED LEUKOCYTES BY MANUAL COUNT Normal [facility] Comment on above: Performed By: #### L [id number], [id number] ####Utility Inspector: UNA ARCE ([id number])[facility] [place] ([facility])[address] [place] [address] [place] RBC MORPHOLOGY IN BLOOD abnormal Normal S [facility] Comment on above: Performed By: #### L [id number], [id number] ####Utility Inspector: UNA ARCE ([id number])[facility] [place] ([facility])[address] [place] [address] [place] SEGMENTED NEUTROPHILS (10*3/UL) IN BLOOD-CELLAVISION 8.0 10*3/uL High 1.8-7.5 [facility] Comment on above: Performed By: #### L [id number], [id number] ####Utility Inspector: UNA ARCE ([id number])[facility] [place] ([facility])[address] [place] [address] [place] SEGMENTED NEUTROPHILS/100 LEUKOCYTES-CE 71 % Normal 38-82 [facility] Comment on above: Performed By: #### L [id number], [id number] ####Utility Inspector: UNA BERMUDEZPEDRO ([id number])[facility] (SB[facility])[address] STOMATOCYTES IN BLOOD BY LIGHT MICROSCOPY Moderate Abnormal (none) [facility] Comment on above: Performed By: #### L [id number], [id number] ####Utility Inspector: UNA BERMUDEZPEDRO ([id number])[facility] (SB[facility])[address] UNCLASSIFIED CELLS TOTAL PER COUNTED LEUKOCYTES BY MANUAL COUNT Normal [facility] Comment on above: Performed By: #### L [id number], [id number] ####Utility Inspector: UNA STAUFFERMELANIE ([id number])[facility] (SB[facility])[address] VARIANT LYMPHOCYTES TOTAL PER COUNTED LEUKOCYTES BY MANUAL COUNT Normal [facility] Comment on above: Performed By: #### L [id number], [id number] ####Utility Inspector: UNA BERMUDEZPEDRO ([id number])[facility] [place] (SB[facility])[address] Magnesium [Mass/Vol]on 04-09 [facility] No Panel Informationon 04-09 [facility] Interpretation and review of laboratory results Abnormal [facility] Interpretation and review of laboratory results Abnormal [facility] Interpretation and review of laboratory results Normal [facility] Eosinophils Manual 5 High 0 - 1 [facility] Lymphocytes Manual 7 [facility] Monocytes Manual 19 [facility] Neutrophils Manual 77 [facility] No Panel InformationOrdered By: Anne Miles on 04-09-2025 [facility] No Panel InformationOrdered By: Kyara Valles on 04-09-2025 Interpretation and review of laboratory results Abnormal [facility] No Panel InformationOrdered By: Jg Sarabia on 04-09-2025 Interpretation and review of laboratory results Abnormal [facility] Nursing Noteon 04-09-2025 Nursing Note R thoracentesis complete pt tolerated well with minimal discomfort Normal [facility] Nursing Note L thoracentesis complete per Dr Lewis. Pt tolerated well with minimal discomfort Normal [facility] PH, BODY FLUIDon 04-09-2025 pH (Body fld) 7.747 [pH] Normal [facility] Comment on above: Performed By: #### L [id number], [id number], [id number], [id number] ####Utility Inspector: ANAHY AVILA ([id number])[facility])[address] [place] [address] TYPE OF BODY FLUID Pleural Fluid Normal [facility] Comment on above: Result Comment: YARELI [place] COMMENTS:This test was developed and its performance characteristics determined by [email or web address]. It has not been cleared or approved by the [place] Food and Drug Administration. This test was performed in a CLIA certified laboratory and is intended for clinical purposes. Performed By: #### L AB188, [id number], [id number], [id number] ####Utility Inspector: ANAHY AVILA ([id number])[facility] ([facility])[address] [place] [address] Result Comment: YARELI [place] COMMENTS:This test was developed and its performance characteristics determined by [email or web address]. It has not been cleared or approved [...] developed and its performance characteristics determined by [email or web address]. It has not been cleared or approved by the US Food and Drug Administration. This test was performed in a CLIA certified laboratory and is intended for clinical purposes.Pleural zkrum-rq-uwouk protein ratio of >0.5 is one of Light???s criteria for an exudate. Heart failure associated misclassifications (by Light???s criteria) may be differentiated as transudative effusions by subsequently evaluating a qcjyb-ou-xeeziti albumin gradient (>1.2 g/dL) and/or a rkqzk-mp-rjlse protein gradient (>3.1 g/dL). Result Comment: YARELI [place] COMMENTS:This test was developed and its performance characteristics determined by [facility] [employer]. It has not been cleared or approved by the US Food and Drug Administration. This test was performed in a CLIA certified laboratory and is intended for clinical purposes.Exudates are defined as meeting one of the following criteria: (a) Pleural byklo-fi-ndfxa protein ratio of >0.5, (b) pleural hyoif-zv-efeoa LDH ratio of >0.6, or (c)a pleural fluid LDH activity that is >2/3 the upper limit of a normal serum LDH activity (Light???s criteria). Performed By: #### L [id number], [id number] ####Utility Inspector: UNA ARCE ([id number])[facility])[address] [place] [address] pH (Body fld) 7.688 [pH] Normal [facility] Comment on above: Performed By: #### L AB196, [id number], [id number], [id number] ####Utility Inspector: ANAHY AVILA ([id number])[facility] ([facility])[address] [place] [address] PHOSPHORUSon 04-09-2025 Phosphate [Mass/Vol] 3.5 mg/dL Normal 2.3-4.7 [facility] Comment on above: Performed By: #### L AB103, [id number], LAB17 ####Utility Inspector: UNA ARCE ([id number])[facility])[address] [place] [address] PROTEIN BODY FLUIDon 025 PROTEIN, BODY FLUID 2.3 g/dL Normal [facility] Comment on above: Performed By: #### L AB188, [id number], [id number], [id number] ####Utility Inspector: ANAHY [id number])[facility] ([facility])[address] [place] [address] PROTEIN, BODY FLUID 2.5 g/dL Normal [facility] Comment on above: Performed By: #### L AB196, [id number], QER298, [id number] ####Utility Inspector: ANAHY AVILA ([id number])[facility] ([facility])[address] [place] [address] [place] Phosphate [Moles/Vol]on Phosphate [Mass/Vol] 3.5 mg/dL 2.3 - 4 .7 mg/dL [facility] Progress Noteon 04-09-2025 Progress Note Normal [facility] Normal [facility] Progress Note Normal [facility] Progress [facility] TOTAL PROTEINon 04-09-2025 Protein [Mass/Vol] 5.9 g/dL Low 6.4-8.3 [facility] Comment on above: Result Comment: Seru m protein values are higher than plasma values. Samples from recumbent persons are lower by up to 0.5 g/dL as compared to ambulatory persons. After 60 years values are lower by up to 0.2 g/dL. Performed By: #### L AB118, LAB96 ####Utility Inspector: UNA ARCE ([id number])[facility] ([facility])[address] [place] [address] XR CHEST 1 VIEWon 04-09-2025 XR CHEST 1 VIEW [facility] XR Chest Single viewon 04-09 [facility] Radiology Study observation (narrative) [facility] RAD[facility] SYSTEM [facility] Radiology Study observation (narrative) [facility] Radiology Study observation (narrative) [facility] XR Chest Single viewOrdered By: Gary Kay on 04-09-2025 [facility] [employer] Work Phone: XR Chest Single viewOrdered By: Sis Collins on 04-09-2025 [facility] [employer] Work Phone: XR Chest Single viewOrdered By: Kev Mattson on 04-09-2025 [facility] Work Phone: [phone] 04-08-2025 [id number] Attempted to insert garcía. Urojet injected. Unable to visualize meatus. Attempted x1 to insert garcía without success. Normal [facility] [id number] Normal [facility] [id number] 04-08-2025 [id number] Normal [facility] BLOOD GAS ARTERIALon 025 AMOUNT OF OXYGEN .40 Normal [facility] Comment on above: Performed By: #### L AB76 ####Utility Inspector: UNA ARCE ([id number])[facility])[address] [place] [address] Base excess Calc (Bld) [Moles/Vol] 11.2 mmol/L High -3.0-3.0 [facility] Comment on above: Performed By: #### L AB76 ####Utility Inspector: UNA ARCE ([id number])[facility] (SB[facility])[address] [place] [address] CO2 [Moles/Vol] 41.2 mmol/L High 22.0-28.0 [facility] Comment on above: Performed By: #### L AB76 ####Utility Inspector: UNA ARCE ([id number])[facility] (SBAB)[address] [place] [address] HCO3 (Bld) [Moles/Vol] 38.9 mmol/L High 21.0-27.0 [facility] Comment on above: Performed By: #### L AB76 ####Utility Inspector: UNA ARCE ([id number])[facility] (SB[facility])[address] [place] [address] Hemoglobin (Bld) [Mass/Vol] 8.4 g/dL Low Screen only [facility] Comment on above: Performed By: #### L AB76 ####Utility Inspector: UNA ARCE ([id number])[facility] [place] ([facility])[address] OXYGEN SATURATION (%) IN ARTERIAL BLOOD 97.0 % Normal 97.0-99.0 [facility] Comment on above: Performed By: #### L AB76 ####Utility Inspector: UNA ARCE ([id number])[facility] (SBHLAB)[address] PCO2 ARTERIAL 75.1 mm Hg High 35.0-48.0 [facility] Comment on above: Performed By: #### L AB76 ####Utility Inspector: UNA ARCE ([id number])[facility] (HL[facility])[address] PH ARTERIAL 7.332 Low 7.350-7.450 [facility] Comment on above: Performed By: #### L AB76 ####Utility Inspector: UNA ARCE ([id number])[facility] (HLAB)[address] PO2 ARTERIAL 104.0 mm Hg Normal 83.0-108.0 [facility] Comment on above: Performed By: #### L AB76 ####Utility Inspector: UNA ARCE ([id number])[facility] (HLAB)[address] SOURCE OF OXYGEN Non-Invasive Ventilator Normal [facility] Comment on above: Performed By: #### L AB76 ####Utility Inspector: UNA ARCE ([id number])[facility] (SBHLAB)[address] AMOUNT OF OXYGEN 4 liters Normal [facility] Comment on above: Performed By: #### L AB76 ####Utility Inspector: UNA ARCE ([id number])[facility] (SBHLAB)[address] Base excess Calc (Bld) [Moles/Vol] 9.9 mmol/L High -3.0-3.0 [facility] Comment on above: Performed By: #### L AB76 ####Utility Inspector: UNA ARCE ([id number])[facility] [place] ([facility])[address] CO2 [Moles/Vol] 40.6 mmol/L High 22.0-28.0 [facility] Comment on above: Performed By: #### L AB76 ####Utility Inspector: UNA ARCE ([id number])[facility] [place] ([facility])[address] HCO3 (Bld) [Moles/Vol] 38.2 mmol/L High 21.0-27.0 [facility] Comment on above: Performed By: #### L AB76 ####Utility Inspector: UNA ARCE ([id number])[facility] (SBHLAB)[address] Hemoglobin (Bld) [Mass/Vol] 8.6 g/dL Low Screen only [facility] Comment on above: Performed By: #### L AB76 ####Utility Inspector: UNA ARCE ([id number])[facility] (SBHLAB)[address] OXYGEN SATURATION (%) IN ARTERIAL BLOOD 96.1 % Low 97.0-99.0 [facility] Comment on above: Performed By: #### L AB76 ####Utility Inspector: UNA ARCE ([id number])[facility] (SBHLAB)[address] PCO2 ARTERIAL 80.1 mm Hg Critically high 35.0-48.0 [facility] Comment on above: Performed By: #### L AB76 ####Utility Inspector: UNA ARCE ([id number])[facility] (SBHL[facility])[address] PH ARTERIAL 7.296 Low 7.350-7.450 [facility] Comment on above: Performed By: #### L AB76 ####Utility Inspector: UNA ARCE ([id number])[facility]ITALAngel SANCHEZUNIVERSITY OF NEW MEXICO HOSPITALSMarisol (SBHLAB)[address] PO2 ARTERIAL 92.0 mm Hg Normal 83.0-108.0 [facility] Comment on above: Performed By: #### L AB76 ####Utility Inspector: UNA YAZMIN ([id number])[facility]ITALAngel SANCHEZUNIVERSITY OF [facility]EX[facility] HOSPITALSN (SBHLAB)[address] SOURCE OF OXYGEN Nasal Cannula (LPM) Normal [facility] Comment on above: Performed By: #### L AB76 ####Utility Inspector: UNA ARCE ([id number])[facility] (SBHL[facility])[address] CBC W Auto Differential pane l (Bld)on 04-08-2025 Erythrocyte distribution width (RBC) [Ratio] 21.1 % High 11.5 - 15.0 % [employer] Hematocrit (Bld) [Volume fraction] 25.9 % Low 40.0 - 52.0 % [employer] [facility] [employer] Hemoglobin (Bld) [Mass/Vol] 7.2 g/dL Low 13.0 - 18.0 g/dL [facility] MCH (RBC) [Entitic mass] 22.3 pg Low 26. 0 - 34.0 pg [facility] [employer] MCHC (RBC) [Mass/Vol] 27.8 % Low 30.5 - 36.0 % [employer] [facility] MCV (RBC) [Entitic vol] 80.2 fL 77.0 - 99.0 fL [employer] [facility] Platelet mean volume (Bld) [Entitic vol] 9.9 fL 9.0 - 12.7 fL [employer] [facility] Platelets (Bld) [#/Vol] 314 10*3/uL 140 - 440 10*3/uL [employer] [facility] RBC (Bld) [#/Vol] 3.23 10*6/uL Low 4.40 - 5.9 0 10*6/uL [employer] [facility] WBC (Bld) [#/Vol] 13 10*3/uL High 3.6 - 10.7 10*3/uL [employer] [facility] CBC WITH AUTO DIFFERENTIALon 04-08-2025 Erythrocyte distribution width (RBC) [Ratio] 21.1 % High 11.5-15.0 [facility] Comment on above: Performed By: #### L [id number], [id number] ####Utility Inspector: UNA ARCE ([id number])[facility] (SBHL[facility])[address] Hematocrit (Bld) [Volume fraction] 25.9 % Low 40.0-52.0 [facility] Comment on above: Performed By: #### L [id number], [id number] ####Utility Inspector: UNA ARCE ([id number])[facility] Hemoglobin (Bld) [Mass/Vol] 7.2 g/dL Low 13.0-18.0 [facility] Comment on above: Performed By: #### L [id number], [id number] ####Utility Inspector: UNA ARCE ([id number])[facility] (SBAB)[address] [place] [address] MCH (RBC) [Entitic mass] 22.3 pg Low 26.0-34.0 [facility] Comment on above: Performed By: #### L [id number], [id number] ####Utility Inspector: UNA ARCE ([id number])[facility] ([facility] [place] [address] MCHC 27.8 % Low 30.5-36.0 [facility] Comment on above: Performed By: #### L [id number], [id number] ####Utility Inspector: UNA ARCE ([id number])[facility] ([facility] MCV (RBC) [Entitic vol] 80.2 fL Normal 77.0-99.0 [facility] Comment on above: Performed By: #### L [id number], [id number] ####Utility Inspector: UNA ARCE ([id number])[facility] (SBHLAB)[address] Platelet mean volume (Bld) [Entitic vol] 9.9 fL Normal 9.0-12.7 [facility] Comment on above: Performed By: #### L [id number], [id number] ####Utility Inspector: UNA ARCE ([id number])[facility] (SBHLAB)[address] Platelets (Bld) [#/Vol] 314 10*3/uL Normal 140-440 [facility] Comment on above: Performed By: #### L [id number], [id number] ####Utility Inspector: UNA ARCE ([id number])[facility] ([facility])[address] RBC (Bld) [#/Vol] 3.23 10*6/uL Low 4.40-5.90 [facility] Comment on above: Performed By: #### L [id number], [id number] ####Utility Inspector: UNA ARCE ([id number])[facility] ([facility])[address] WBC (Bld) [#/Vol] 13.0 10*3/uL High 3.6-10.7 [facility] Comment on above: Performed By: #### L [id number], [id number] ####Utility Inspector: UNA ARCE ([id number])[facility] ([facility])[address] COMPREHENSIVE METABOLIC PANE Anant 04-08-2025 Albumin [Mass/Vol] 2.4 g/dL Low 3.4-4.8 [facility] Comment on above: Performed By: #### L [id number], [id number] ####Utility Inspector: UNA ARCE ([id number])[facility] ([facility])[address] ALP [Catalytic activity/Vol] 57 U/L Normal 40-150 [facility] Comment on above: Performed By: #### L [id number], [id number] ####Utility Inspector: UNA ARCE ([id number])[facility] ([facility])[address] ALT [Catalytic activity/Vol] U/L Normal <40 [facility] Comment on above: Performed By: #### L [id number], [id number] ####Utility Inspector: UNA STAUFFERMELANIE ([id number])[facility] ([facility])[address] Anion gap [Moles/Vol] 10 mmol/L Normal 3-13 [facility] Comment on above: Performed By: #### L [id number], LAB17 ####Utility Inspector: UNA STAUFFERMELANIE ([id number])[facility] ([facility])[address] AST [Catalytic activity/Vol] 21 U/L Normal <34 [facility] Comment on above: Performed By: #### L [id number], LAB17 ####Utility Inspector: UNA STAUFFERMELANIE ([id number])[facility] ([facility])[address] Bilirubin [Mass/Vol] 0.6 mg/dL Normal <1.2 [facility] Comment on above: Performed By: #### L AB103, LAB17 ####Utility Inspector: UNA ARCE ([id number])[facility] ([facility])[address] Calcium [Mass/Vol] 7.9 mg/dL Low 8.8-10.0 [facility] Comment on above: Performed By: #### L AB103, LAB17 ####Utility Inspector: UNA ARCE ([id number])[facility] ([facility])[address] Chloride [Moles/Vol] 99 mmol/L Normal 98-107 [facility] Comment on above: Performed By: #### L AB103, LAB17 ####Utility Inspector: UNA ARCE ([id number])[facility]ITAL[facility]ZUNIVERSITY [facility]OS[facility]ITALS[facility] ([facility]HLAB)[address] CO2 [Moles/Vol] 33 mmol/L High 23-31 [facility] Comment on above: Performed By: #### L AB103, LAB17 ####Utility Inspector: UNA ARCE ([id number])[facility]ITALAngel BARBUNIVERSITY OF [facility]OSPITALSN (SBHLAB)[address] Creatinine [Mass/Vol] 1.78 mg/dL High 0.72-1.25 [facility] Comment on above: Performed By: #### L DERICK, LAB17 ####Utility Inspector: UNA ARCE ([id number])[facility] ([facility])[address] GLOMERULAR FILTRATION RATE ML/MIN/1.73 SQ M.PREDICTED 36.0 mL/min/1.73m*2 Low >60.0 [facility] Comment on above: Result Comment: Calc ulation based on the Chronic Kidney Disease Epidemiology Collaboration (CKD-EPI) equation refit without adjustment for race Performed By: #### L DERICK, LAB17 ####Utility Inspector: UNA ARCE ([id number])[facility] (SB[facility]AB)[address] Glucose [Mass/Vol] 99 mg/dL Normal 82-115 [facility] Comment on above: Performed By: #### L AB103, LAB17 ####Utility Inspector: UNA ARCE ([id number])[facility] ([facility]HL[facility])[address] [place] [address] [place] Potassium [Moles/Vol] 3.4 mmol/L Low 3.5-5.1 [facility] Comment on above: Result Comment: [facility] potassium values may be up to 0.5 mmol/L lower than serum values. Performed By: #### L AB103, LAB17 ####Utility Inspector: UNA ARCE ([id number])[facility] ([facility])[address] Protein [Mass/Vol] 5.8 g/dL Low 6.4-8.3 [facility] Comment on above: Performed By: #### L AB103, LAB17 ####Utility Inspector: UNA ARCE ([id number])[facility] ([facility])[address] Sodium [Moles/Vol] 142 mmol/L Normal 136-145 [facility] Comment on above: Performed By: #### L AB103, LAB17 ####Utility Inspector: UNA ARCE ([id number])[facility] ([facility])[address] Urea nitrogen [Mass/Vol] 26 mg/dL High 9-23 [facility] Comment on above: Performed By: #### L AB103, LAB17 ####Utility Inspector: UNA ARCE ([id number])[facility] ([facility])[address] Comprehensive metabolic 1998 panelon 04-08-2025 Albumin [Mass/Vol] 2.4 g/dL Low 3.4 - 4.8 g/dL [facility] ALP [Catalytic activity/Vol] 57 U/L 40 - 150 U/L [facility] ALT [Catalytic activity/Vol] U/L NINF - 40 U/L [facility] Anion gap [Moles/Vol] 10 mmol/L 3 - 13 mmol/L [facility] AST [Catalytic activity/Vol] 21 U/L NINF - 34 U/L [facility] Bilirubin [Mass/Vol] 0.6 mg/dL NINF - 1.2 mg/dL [facility] Calcium [Mass/Vol] 7.9 mg/dL Low 8.8 - 10. 0 mg/dL [facility] Chloride [Moles/Vol] 99 mmol/L 98 - 10 7 mmol/L [facility] CO2 [Moles/Vol] 33 mmol/L High 23 - 31 mmol/L [facility] Creatinine [Mass/Vol] 1.78 mg/dL High 0.72 - 1.25 mg/dL [facility] GFR/1.73 sq M.predicted (S/P/Bld) [Vol rate/Area] 36 mL/min Low - PINF [facility] Glucose [Mass/Vol] 99 mg/dL 82 - 115 mg/dL [facility] Interpretation and review of laboratory results Abnormal [facility] Potassium [Moles/Vol] 3.4 mmol/L Low 3.5 - 5.1 mmol/L [facility] Protein [Mass/Vol] 5.8 g/dL Low 6.4 - 8.3 g/dL [facility] Sodium [Moles/Vol] 142 mmol/L 136 - 145 mmol/L [facility] Urea nitrogen [Mass/Vol] 26 mg/dL High 9 - 23 mg/d L [facility] Consulton 04-08-2025 Consult Normal [facility] Laboratory - Chemistry and C hemistry - challengeOrdered By: Renay Chan on 04-08-2025 Base excess Calc (Bld) [Moles/Vol] 11.2 mmol/L High -3.0 - 3.0 mmol/L [facility] CO2 (Bld) [Partial pressure] 75.1 mm[Hg] High [facility] CO2 [Moles/Vol] 41.2 mmol/L High 22.0 - 28.0 mmol/L [facility] HCO3 (Bld) [Moles/Vol] 38.9 mmol/L High 21.0 - 27.0 mmol/L [facility] Oxygen (Bld) [Partial pressure] 104 mm[Hg] [facility] pH (Bld) 7.332 [pH] Low 7.350 - 7.450 [facility] Laboratory - Chemistry and C hemistry - challengeOrdered By: Sallie Powell on 04-08-2025 Base excess Calc (Bld) [Moles/Vol] 9.9 mmol/L High -3.0 - 3.0 mmol/L [facility] CO2 (Bld) [Partial pressure] 80.1 mm[Hg] Critically high [facility] CO2 [Moles/Vol] 40.6 mmol/L High 22.0 - 28.0 mmol/L [facility] HCO3 (Bld) [Moles/Vol] 38.2 mmol/L High 21.0 - 27.0 mmol/L [facility] Oxygen (Bld) [Partial pressure] 92 mm[Hg] [facility] pH (Bld) 7.296 [pH] Low 7.350 - 7.450 [facility] Laboratory - Chemistry and C hemistry - challengeon 04-08-2025 Glucose [Mass/Vol] 100 mg/dL 70 - 100 mg/dL [facility] Magnesium [Mass/Vol] 1.6 mg/dL 1.6 - 2 .6 mg/dL [facility] Laboratory - Hematology and Cell countsOrdered By: Renay Chan on 04-08-2025 Hemoglobin (Bld) [Mass/Vol] 8.4 g/dL Low 13.5 - 17.5 g/dl [facility] Laboratory - Hematology and Cell countsOrdered By: Sallie Powell on 04-08-2025 Hemoglobin (Bld) [Mass/Vol] 8.6 g/dL Low 13.5 - 17.5 g/dl [facility] Laboratory - Hematology and Cell countson 04-08-2025 Anisocytosis Ql (Bld) Moderate Abnormal (none) [facility] Basophils (Bld) [#/Vol] 0.1 10*3/uL 0.0 - 0.2 10*3/uL [facility] Basophils/100 WBC (Bld) 1 % 0 - 2 % [facility] Hypochromia Ql (Bld) Moderate Abnormal (none) [facility] Lymphocytes (Bld) [#/Vol] 1.8 10*3/uL 1.0 - 4.3 10*3/uL [facility] Lymphocytes/100 WBC (Bld) 14 % Low 15 - 45 % [facility] Monocytes (Bld) [#/Vol] 1.6 10*3/uL High 0.0 - 0.9 10*3/uL [facility] Monocytes/100 WBC (Bld) 12 % 5 - 13 % [facility] Neutrophils (Bld) [#/Vol] 9.6 10*3/uL High 1.8 - 7.5 10*3/uL [facility] Ovalocytes LM Ql (Bld) Slight Abnormal (none) [facility] Poikilocytosis LM Ql (Bld) Moderate Abnormal (none) [facility] RBC morphology finding Nom (Bld) abnormal [facility] Segmented neutrophils/100 WBC (Bld) 74 % 38 - 82 % [facility] Stomatocytes LM Ql (Bld) Moderate Abnormal (none) [facility] MAGNESIUMon 04-08-2025 Magnesium [Mass/Vol] 1.6 mg/dL Normal 1.6-2.6 [facility] Comment on above: Result Comment: YARELI [place] COMMENTS:Higher values can be expected in females during menses. Performed By: #### L AB103, LAB17 ####Utility Inspector: UNA ARCE ([id number])[facility] [place] ([facility])[address] MANUAL DIFFERENTIAL (CELLAVI BANDAR)on 04-08-2025 ANISOCYTOSIS PRESENCE IN BLOOD BY LIGHT MICROSCOPY Moderate Abnormal (none) [facility] Comment on above: Performed By: #### L [id number], [id number] ####Utility Inspector: UNA ARCE ([id number])[facility] [place] ([facility])[address] BAND NEUTROPHILS TOTAL PER COUNTED LEUKOCYTES BY MANUAL COUNT Normal [facility] Comment on above: Performed By: #### L [id number], [id number] ####Utility Inspector: UNA ARCE ([id number])[facility] ([facility])[address] [place] [address] [place] BASOPHILS (10*3/UL) IN BLOOD-CELLAVISION 0.1 10*3/uL Normal 0.0-0.2 [facility] Comment on above: Performed By: #### L [id number], [id number] ####Utility Inspector: UNA ARCE ([id number])[facility] [place] ([facility])[address] [place] [address] [place] BASOPHILS TOTAL PER COUNTED LEUKOCYTES BY MANUAL COUNT 1 Normal [facility] Comment on above: Performed By: #### L [id number], [id number] ####Utility Inspector: UNA ARCE ([id number])[facility] [place] ([facility])[address] [place] [address] [place] BASOPHILS/100 LEUKOCYTES IN BLOOD-CELLAVISION 1 % Normal 0-2 [facility] Comment on above: Performed By: #### L [id number], [id number] ####Utility Inspector: UNA ARCE ([id number])[facility] [place] (SBHLAB)[address] [place] [address] [place] BLASTS TOTAL PER COUNTED LEUKOCYTES BY MANUAL COUNT Normal [facility] Comment on above: Performed By: #### L [id number], [id number] ####Utility Inspector: UNA MOHRCER ([id number])[facility] [place] (SBHLAB)[address] [place] [address] [place] EOSINOPHILS TOTAL PER COUNTED LEUKOCYTES BY MANUAL COUNT Normal [facility] Comment on above: Performed By: #### L [id number], [id number] ####Utility Inspector: UNA ARCE ([id number])[facility] [place] ([facility])[address] HYPOCHROMIA (PRESENCE) IN BLOOD BY LIGHT MICROSCOPY Moderate Abnormal (none) [facility] Comment on above: Performed By: #### L [id number], [id number] ####Utility Inspector: UNAANJEL ARCE ([id number])[facility] [place] ([facility])[address] [place] [address] [place] LYMPHOCYTES (10*3/UL) IN BLOOD-CELLAVISION 1.8 10*3/uL Normal 1.0-4.3 [facility] Comment on above: Performed By: #### L [id number], [id number] ####Utility Inspector: UNAANJEL ARCE ([id number])[facility] [place] ([facility])[address] [place] [address] [place] LYMPHOCYTES TOTAL PER COUNTED LEUKOCYTES BY MANUAL COUNT 14 Normal [facility] Comment on above: Performed By: #### L [id number], [id number] ####Utility Inspector: UNA YAZMIN ([id number])[facility] [place] ([facility])[address] [place] [address] [place] LYMPHOCYTES/100 LEUKOCYTES IN BLOOD-CELLAVISION 14 % Low 15-45 [facility] Comment on above: Performed By: #### L [id number], [id number] ####Utility Inspector: UNA ARCE ([id number])[facility] [place] (SBHLAB)[address] [place] [address] [place] METAMYELOCYTES TOTAL PER COUNTED LEUKOCYTES BY MANUAL COUNT [facility] Comment on above: Performed By: #### L [id number], [id number] ####Utility Inspector: UNA STAUFFERMELANIE ([id number])[facility] [place] ([facility])[address] [place] [address] [place] MONOCYTES (10*3/UL) IN BLOOD-CELLAVISION 1.6 10*3/uL High 0.0-0.9 [facility] Comment on above: Performed By: #### L [id number], [id number] ####Utility Inspector: UNA STAUFFERMELANIE ([id number])[facility] [place] ([facility])[address] [place] [address] [place] MONOCYTES TOTAL PER COUNTED LEUKOCYTES BY MANUAL COUNT 12 Normal [facility] Comment on above: Performed By: #### L [id number], [id number] ####Utility Inspector: UNA STAUFFERMELANIE ([id number])[facility] [place] ([facility])[address] [place] [address] [place] MONOCYTES/100 LEUKOCYTES IN BLOOD-LUCIANA 12 % Normal -13 [facility] Comment on above: Performed By: #### L [id number], [id number] ####Utility Inspector: UNA ARCE ([id number])[facility] [place] ([facility])[address] [place] [address] [place] MYELOCYTES COUNTED BY MANUAL COUNT [facility] Comment on above: Performed By: #### L [id number], [id number] ####Utility Inspector: UNA ARCE ([id number])[facility] [place] ([facility])[address] [place] [address] [place] NEUTROPHILS TOTAL PER COUNTED LEUKOCYTES BY MANUAL COUNT 75 Normal [facility] Comment on above: Performed By: #### L [id number], [id number] ####Utility Inspector: UNA ARCE ([id number])[facility] [place] ([facility])[address] [place] [address] [place] OVALOCYTES PRESENCE IN BLOOD BY LIGHT MICROSCOPY Slight Abnormal (none) [facility] Comment on above: Performed By: #### L [id number], [id number] ####Utility Inspector: UNA ARCE ([id number])[facility] [place] ([facility])[address] [place] [address] [place] POIKILOCYTOSIS (PRESENCE) IN BLOOD BY LIGHT MICROSCOPY Moderate Abnormal (none) [facility] Comment on above: Performed By: #### L [id number], [id number] ####Utility Inspector: UNA ARCE ([id number])[facility] [place] ([facility])[address] [place] [address] [place] PROMYELOCYTES TOTAL PER COUNTED LEUKOCYTES BY MANUAL COUNT Normal [facility] Comment on above: Performed By: #### L [id number], [id number] ####Utility Inspector: UNA ARCE ([id number])[facility] [place] ([facility])[address] [place] [address] [place] RBC MORPHOLOGY IN BLOOD abnormal Normal [facility] Comment on above: Performed By: #### L [id number], [id number] ####Utility Inspector: UNA ARCE ([id number])[facility] [place] ([facility])[address] [place] [address] [place] SEGMENTED NEUTROPHILS (10*3/UL) IN BLOOD-CELLAVISION 9.6 10*3/uL High 1.8-7.5 [facility] Comment on above: Performed By: #### L [id number], [id number] ####Utility Inspector: UNA ARCE ([id number])[facility] [place] ([facility])[address] [place] [address] [place] SEGMENTED NEUTROPHILS/100 LEUKOCYTES-CE 74 % Normal 38-82 [facility] Comment on above: Performed By: #### L [id number], [id number] ####Utility Inspector: UNA ARCE ([id number])[facility] [place] ([facility])[address] STOMATOCYTES IN BLOOD BY LIGHT MICROSCOPY Moderate Abnormal (none) [facility] Comment on above: Performed By: #### L [id number], [id number] ####Utility Inspector: UNA ARCE ([id number])[facility] ([facility])[address] UNCLASSIFIED CELLS TOTAL PER COUNTED LEUKOCYTES BY MANUAL COUNT Normal [facility] Comment on above: Performed By: #### L [id number], [id number] ####Utility Inspector: UNA ARCE ([id number])[facility] ([facility])[address] VARIANT LYMPHOCYTES TOTAL PER COUNTED LEUKOCYTES BY MANUAL COUNT Normal [facility] Comment on above: Performed By: #### L [id number], [id number] ####Utility Inspector: UNA ARCE ([id number])[facility] ([facility])[address] Magnesium [Mass/Vol]on 04-08 Interpretation and review of laboratory results Normal [facility] No Panel InformationOrdered By: Renay Chan on 04-08-2025 Amount Of Oxygen 0.40 [facility] Interpretation and review of laboratory results Abnormal [facility] Source Of Oxygen Non-Invasive Ventilator [facility] No Panel InformationOrdered By: Sallie Powell on 04-08-2025 Amount Of Oxygen 4 liters [facility] Interpretation and review of laboratory results Abnormal [facility] Source Of Oxygen Nasal Cannula (LPM) [facility] No Panel Informationon 04-08 Interpretation and review of laboratory results Normal [facility] Basophils Manual 1 [facility] Interpretation and review of laboratory results Abnormal [facility] Lymphocytes Manual 14 [facility] Monocytes Manual 12 [facility] Neutrophils Manual 75 [facility] Progress Noteon 04-08-2025 Progress Note Normal [facility] Progress [facility] Normal [facility] Progress Note Normal [facility] Progress Note Normal [facility] XR Chest Single viewon 04-08 [facility] RADIOLOGY SYSTEM [facility] Radiology Study observation (narrative) [facility] XR Chest Single viewOrdered By: Nelson Sow on 04-08-2025 [facility] Work Phone: CBC W Auto Differential pane l (Bld)Ordered By: Sharita Beck on 04-07-2025 Erythrocyte distribution width (RBC) [Ratio] 20.5 % High 11.5 - 15.0 % [facility] Hematocrit (Bld) [Volume fraction] 27.2 % Low 40.0 - 52.0 % [facility] Hemoglobin (Bld) [Mass/Vol] 7.4 g/dL Low 13.0 - 18.0 g/dL [facility] MCH (RBC) [Entitic mass] 21.8 pg Low 26. 0 - 34.0 pg [facility] MCHC (RBC) [Mass/Vol] 27.2 % Low 30.5 - 36.0 % [facility] MCV (RBC) [Entitic vol] 80 fL 77.0 - 99.0 fL [facility] Platelet mean volume (Bld) [Entitic vol] 9.8 fL 9.0 - 12.7 fL [facility] Platelets (Bld) [#/Vol] 346 10*3/uL 140 - 440 10*3/uL [facility] RBC (Bld) [#/Vol] 3.4 10*6/uL Low 4.40 - 5.9 0 10*6/uL [facility] WBC (Bld) [#/Vol] 11.5 10*3/uL High 3.6 - 10.7 10*3/uL [facility] CBC WITH AUTO DIFFERENTIALon 04-07-2025 Erythrocyte distribution width (RBC) [Ratio] 20.5 % High 11.5-15.0 [facility] Comment on above: Performed By: #### L [id number], [id number] ####Utility Inspector: UNA ARCE ([id number])[facility] ([facility])[address] [place] [address] Hematocrit (Bld) [Volume fraction] 27.2 % Low 40.0-52.0 [facility] Comment on above: Performed By: #### L [id number], [id number] ####Utility Inspector: UNA ARCE ([id number])[facility] ([facility])[address] Hemoglobin (Bld) [Mass/Vol] 7.4 g/dL Low 13.0-18.0 [facility] Comment on above: Performed By: #### L [id number], [id number] ####Utility Inspector: UNA ARCE ([id number])[facility] ([facility])[address] MCH (RBC) [Entitic mass] 21.8 pg Low 26.0-34.0 [facility] Comment on above: Performed By: #### L [id number], [id number] ####Utility Inspector: UNA ARCE ([id number])[facility] ([facility])[address] MCHC 27.2 % Low 30.5-36.0 [facility] Comment on above: Performed By: #### L [id number], [id number] ####Utility Inspector: UNA ARCE ([id number])[facility] ([facility])[address] MCV (RBC) [Entitic vol] 80.0 fL Normal 77.0-99.0 [facility] Comment on above: Performed By: #### L [id number], [id number] ####Utility Inspector: UNA ARCE ([id number])[facility] (SBHLAB)[address] Platelet mean volume (Bld) [Entitic vol] 9.8 fL Normal 9.0-12.7 [facility] Comment on above: Performed By: #### L [id number], [id number] ####Utility Inspector: UNA ARCE ([id number])[facility]PITALA BARBUNIVERS[facility]ALSN (SBHLAB)[address] Platelets (Bld) [#/Vol] 346 10*3/uL Normal 140-440 [facility] Comment on above: Performed By: #### L [id number], [id number] ####Utility Inspector: UNA ARCE ([id number])LYNETTE BASHIRN (SBHLAB)[address] RBC (Bld) [#/Vol] 3.40 10*6/uL Low 4.40-5.90 [facility] Comment on above: Performed By: #### L [id number], [id number] ####Utility Inspector: UNA ARCE ([id number])[facility]OSPITALAngel BASHIRN (SBHLAB)[address] WBC (Bld) [#/Vol] 11.5 10*3/uL High 3.6-10.7 [facility] Comment on above: Performed By: #### L [id number], [id number] ####Utility Inspector: UNA ARCE ([id number])[facility]ITALAngel [facility] (SBHLAB)[address] COMPREHENSIVE METABOLIC PANE Anant 04-07-2025 Albumin [Mass/Vol] 2.4 g/dL Low 3.4-4.8 [facility] Comment on above: Performed By: #### L AB17, [id number] ####Utility Inspector: UNA ARCE ([id number])[facility]ITAL[facility]N (SBHLAB)[address] ALP [Catalytic activity/Vol] 57 U/L Normal 40-150 [facility] Comment on above: Performed By: #### L AB17, [id number] ####Utility Inspector: UNA ARCE ([id number])[facility]ITALAngel SANCHEZUNIVERSITY OF NEW [facility]EX[facility] HOSPITALSN (SBHLAB)[address] ALT [Catalytic activity/Vol] U/L Normal <40 [facility] Comment on above: Performed By: #### L AB17, [id number] ####Utility Inspector: UNA ARCE ([id number])[facility] [place] (SBHLAB)[address] Anion gap [Moles/Vol] 14 mmol/L High 3-13 [facility] Comment on above: Performed By: #### L AB17, [id number] ####Utility Inspector: UNA ARCE ([id number])[facility] [place] (SBHLAB)[address] AST [Catalytic activity/Vol] 23 U/L Normal <34 [facility] Comment on above: Performed By: #### L AB17, [id number] ####Utility Inspector: UNA ARCE ([id number])[facility] [place] (SBHLAB)[address] Bilirubin [Mass/Vol] 0.7 mg/dL Normal <1.2 [facility] Comment on above: Performed By: #### L AB17, [id number] ####Utility Inspector: UNA ARCE ([id number])[facility] [place] (SBHLAB)[address] Calcium [Mass/Vol] 7.9 mg/dL Low 8.8-10.0 [facility] Comment on above: Performed By: #### L AB17, [id number] ####Utility Inspector: UNA ARCE ([id number])[facility] [place] (SBHLAB)[address] [place] [address] [place] Chloride [Moles/Vol] 98 mmol/L Normal 98-107 [facility] Comment on above: Performed By: #### L AB17, [id number] ####Utility Inspector: UNA ARCE ([id number])[facility] [place] (SBHLAB)[address] [place] [address] [place] CO2 [Moles/Vol] 31 mmol/L Normal 23-31 [facility] Comment on above: Performed By: #### L AB17, [id number] ####Utility Inspector: UNA ARCE ([id number])[facility] [place] (SBHLAB)[address] Creatinine [Mass/Vol] 1.63 mg/dL High 0.72-1.25 [facility] Comment on above: Performed By: #### L AB17, [id number] ####Utility Inspector: UNA ARCE ([id number])[facility]ITAL[facility] (SBHLAB)[address] GLOMERULAR FILTRATION RATE ML/MIN/1.73 SQ M.PREDICTED 40.0 mL/min/1.73m*2 Low >60.0 [facility] Comment on above: Result Comment: Calc ulation based on the Chronic Kidney Disease Epidemiology Collaboration (CKD-EPI) equation refit without adjustment for race Performed By: #### L AB17, [id number] ####Utility Inspector: UNA ARCE ([id number])[facility] [place] (SBHLAB)[address] Glucose [Mass/Vol] 88 mg/dL Normal 82-115 [facility] Comment on above: Performed By: #### L AB17, [id number] ####Utility Inspector: UNA AREC ([id number])[facility] (SBHLAB)[address] Potassium [Moles/Vol] 3.6 mmol/L Normal 3.5-5.1 [facility] Comment on above: Result Comment: [facility] potassium values may be up to 0.5 mmol/L lower than serum values. Performed By: #### L AB17, [id number] ####Utility Inspector: UNA ARCE ([id number])[facility] [place] (SBHLAB)[address] Protein [Mass/Vol] 5.7 g/dL Low 6.4-8.3 [facility] Comment on above: Performed By: #### L AB17, [id number] ####Utility Inspector: UNA ARCE ([id number])[facility]ITALAngel SANCHEZUNIVERSITY OF NEW MEXICO HOSPITALSN (SBHLAB)[address] [place] [address] [place] Sodium [Moles/Vol] 143 mmol/L Normal 136-145 [facility] Comment on above: Performed By: #### L AB17, [id number] ####Utility Inspector: UNA ARCE ([id number])[facility] (SBHLAB)[address] Urea nitrogen [Mass/Vol] 26 mg/dL High 9-23 [facility] Comment on above: Performed By: #### L AB17, [id number] ####Utility Inspector: UNA ARCE ([id number])[facility] (SBHLAB)[address] Comprehensive metabolic 1998 panelon 04-07-2025 Albumin [Mass/Vol] 2.4 g/dL Low 3.4 - 4.8 g/dL [facility] ALP [Catalytic activity/Vol] 57 U/L 40 - 150 U/L [facility] ALT [Catalytic activity/Vol] U/L NINF - 40 U/L [facility] Anion gap [Moles/Vol] 14 mmol/L High 3 - 13 mmol/L [facility] AST [Catalytic activity/Vol] 23 U/L NINF - 34 U/L [facility] Bilirubin [Mass/Vol] 0.7 mg/dL NINF - 1.2 mg/dL [facility] Calcium [Mass/Vol] 7.9 mg/dL Low 8.8 - 10. 0 mg/dL [facility] Chloride [Moles/Vol] 98 mmol/L 98 - 10 7 mmol/L [facility] CO2 [Moles/Vol] 31 mmol/L 23 - 31 mmol/L [facility] Creatinine [Mass/Vol] 1.63 mg/dL High 0.72 - 1.25 mg/dL [facility] GFR/1.73 sq M.predicted (S/P/Bld) [Vol rate/Area] 40 mL/min Low - PINF [facility] Glucose [Mass/Vol] 88 mg/dL 82 - 115 mg/dL [facility] Interpretation and review of laboratory results Abnormal [facility] Potassium [Moles/Vol] 3.6 mmol/L 3.5 - 5.1 mmol/L [facility] Protein [Mass/Vol] 5.7 g/dL Low 6.4 - 8.3 g/dL [facility] Sodium [Moles/Vol] 143 mmol/L 136 - 145 mmol/L [facility] Urea nitrogen [Mass/Vol] 26 mg/dL High 9 - 23 mg/d L [facility] Consulton 04-07-2025 Consult Normal [facility] Laboratory - Chemistry and C hemistry - challengeon 04-07-2025 Magnesium [Mass/Vol] 1.7 mg/dL 1.6 - 2 .6 mg/dL [facility] Laboratory - Hematology and Cell countson 04-07-2025 Anisocytosis Ql (Bld) Slight Abnormal (none) [facility] Eosinophils (Bld) [#/Vol] 0.3 10*3/uL 0.0 - 0.5 10*3/uL [facility] Eosinophils/100 WBC (Bld) 3 % 0 - 6 % [facility] Hypochromia Ql (Bld) Moderate Abnormal (none) [facility] Lymphocytes (Bld) [#/Vol] 0.9 10*3/uL Low 1.0 - 4.3 10*3/uL [facility] Lymphocytes/100 WBC (Bld) 8 % Low 15 - 45 % [facility] Monocytes (Bld) [#/Vol] 0.8 10*3/uL 0.0 - 0.9 10*3/uL [facility] Monocytes/100 WBC (Bld) 7 % 5 - 13 % [facility] Neutrophils (Bld) [#/Vol] 9.5 10*3/uL High 1.8 - 7.5 10*3/uL [facility] Nucleated RBC/100 WBC (Bld) [Ratio] 1 % 0 - 2 % [facility] Poikilocytosis LM Ql (Bld) Slight Abnormal (none) [facility] RBC morphology finding Nom (Bld) abnormal [facility] Segmented neutrophils/100 WBC (Bld) 83 % High 38 - 82 % [facility] Stomatocytes LM Ql (Bld) Moderate Abnormal (none) [facility] MAGNESIUMon 04-07-2025 Magnesium [Mass/Vol] 1.7 mg/dL Normal 1.6-2.6 [facility] Comment on above: Result Comment: ORDE R COMMENTS:Higher values can be expected in females during menses. Performed By: #### L AB17, [id number] ####Utility Inspector: UNA ARCE ([id number])[facility] [place] (SBHLAB)[address] [place] [address] [place] MANUAL DIFFERENTIAL (CELLAVI BANDAR)on 04-07-2025 ANISOCYTOSIS PRESENCE IN BLOOD BY LIGHT MICROSCOPY Slight Abnormal (none) [facility] Comment on above: Performed By: #### L [id number], [id number] ####Utility Inspector: UNA ARCE ([id number])[facility] [place] (SBHLAB)[address] BAND NEUTROPHILS TOTAL PER COUNTED LEUKOCYTES BY MANUAL COUNT Normal [facility] Comment on above: Performed By: #### L [id number], [id number] ####Utility Inspector: UNA ARCE ([id number])[facility] [place] (SBHLAB)[address] BASOPHILS TOTAL PER COUNTED LEUKOCYTES BY MANUAL COUNT Normal [facility] Comment on above: Performed By: #### L [id number], [id number] ####Utility Inspector: UNA ARCE ([id number])[facility] [place] (SBHLAB)[address] [place] [address] [place] BLASTS TOTAL PER COUNTED LEUKOCYTES BY MANUAL COUNT Normal [facility] Comment on above: Performed By: #### L [id number], [id number] ####Utility Inspector: UNA RACE ([id number])[facility] [place] (SBHLAB)[address] [place] [address] [place] EOSINOPHILS (10*3/UL) IN BLOOD-CELLAVISION 0.3 10*3/uL Normal 0.0-0.5 [facility] Comment on above: Performed By: #### L [id number], [id number] ####Utility Inspector: UNA ARCE ([id number])[facility] [place] (SBHLAB)[address] [place] [address] [place] EOSINOPHILS TOTAL PER COUNTED LEUKOCYTES BY MANUAL COUNT 3 High 0-1 [facility] Comment on above: Performed By: #### L [id number], [id number] ####Utility Inspector: UNA STAUFFERMELANIE ([id number])[facility] [place] (SBHLAB)[address] [place] [address] [place] EOSINOPHILS/100 LEUKOCYTES IN BLOOD-CELLAVISION 3 % Normal 0-6 [facility] Comment on above: Performed By: #### L [id number], [id number] ####Utility Inspector: UNA STAUFFERMELANIE ([id number])[facility] [place] (SBHLAB)[address] [place] [address] [place] HYPOCHROMIA (PRESENCE) IN BLOOD BY LIGHT MICROSCOPY Moderate Abnormal (none) [facility] Comment on above: Performed By: #### L [id number], [id number] ####Utility Inspector: UNA BERMUDEZPEDRO ([id number])[facility] [place] (SBHLAB)[address] [place] [address] [place] LYMPHOCYTES (10*3/UL) IN BLOOD-CELLAVISION 0.9 10*3/uL Low 1.0-4.3 [facility] Comment on above: Performed By: #### L [id number], [id number] ####Utility Inspector: UNA STAUFFERMELANIE ([id number])[facility] [place] (SBHLAB)[address] [place] [address] [place] LYMPHOCYTES TOTAL PER COUNTED LEUKOCYTES BY MANUAL COUNT 8 Normal [facility] Comment on above: Performed By: #### L [id number], [id number] ####Utility Inspector: UNA STAUFFERMELANIE ([id number])[facility] [place] (SBHLAB)[address] [place] [address] [place] LYMPHOCYTES/100 LEUKOCYTES IN BLOOD-CELLAVISION 8 % Low 15-45 [facility] Comment on above: Performed By: #### L [id number], [id number] ####Utility Inspector: UNA STAUFFERMELANIE ([id number])[facility] [place] (SBHLAB)[address] [place] [address] [place] METAMYELOCYTES TOTAL PER COUNTED LEUKOCYTES BY MANUAL COUNT Normal [facility] Comment on above: Performed By: #### L [id number], [id number] ####Utility Inspector: UNA STAUFFERMELANIE ([id number])[facility] [place] (SBHLAB)[address] [place] [address] [place] MONOCYTES (10*3/UL) IN BLOOD-CELLAVISION 0.8 10*3/uL Normal 0.0-0.9 [facility] Comment on above: Performed By: #### L [id number], [id number] ####Utility Inspector: UNA BERMUDEZPEDRO ([id number])[facility] [place] (SBHLAB)[address] [place] [address] [place] MONOCYTES TOTAL PER COUNTED LEUKOCYTES BY MANUAL COUNT 7 Normal [facility] Comment on above: Performed By: #### L [id number], [id number] ####Utility Inspector: UNA BERMUDEZPEDRO ([id number])[facility] [place] (SBHLAB)[address] [place] [address] [place] MONOCYTES/100 LEUKOCYTES IN BLOOD-LUCIANA 7 % Normal 5-13 [facility] Comment on above: Performed By: #### L [id number], [id number] ####Utility Inspector: UNA BERMUDEZPEDRO ([id number])[facility] [place] (SBHLAB)[address] MYELOCYTES COUNTED BY MANUAL COUNT [facility] Comment on above: Performed By: #### L [id number], [id number] ####Utility Inspector: UNA ARCE ([id number])[facility] [place] (SBHLAB)[address] [place] [address] [place] NEUTROPHILS TOTAL PER COUNTED LEUKOCYTES BY MANUAL COUNT 86 Normal [facility] Comment on above: Performed By: #### L [id number], [id number] ####Utility Inspector: UNA ARCE ([id number])[facility] [place] (SBHLAB)[address] [place] [address] [place] NUCLEATED ERYTHROCYTES/100 LEUKOCTES IN BLOOD-CELLAVISION 1 % Normal 0-2 [facility] Comment on above: Performed By: #### L [id number], [id number] ####Utility Inspector: UNA ARCE ([id number])[facility]ITAL[facility] [place] (SBHLAB)[address] [place] [address] [place] POIKILOCYTOSIS (PRESENCE) IN BLOOD BY LIGHT MICROSCOPY Slight Abnormal (none) [facility] Comment on above: Performed By: #### L [id number], [id number] ####Utility Inspector: UNA ARCE ([id number])[facility] [place] (SBHLAB)[address] [place] [address] [place] PROMYELOCYTES TOTAL PER COUNTED LEUKOCYTES BY MANUAL COUNT Normal [facility] Comment on above: Performed By: #### L [id number], [id number] ####Utility Inspector: UNA ARCE ([id number])[facility]ITALA BARBUNIVERSITY OF NEW [facility]OSPITALSN (SBHLAB)[address] RBC MORPHOLOGY IN BLOOD abnormal Normal [facility] Comment on above: Performed By: #### L [id number], [id number] ####Utility Inspector: UNA ARCE ([id number])[facility] [place] (SBHLAB)[address] [place] [address] [place] SEGMENTED NEUTROPHILS (10*3/UL) IN BLOOD-CELLAVISION 9.5 10*3/uL High 1.8-7.5 [facility] Comment on above: Performed By: #### L [id number], [id number] ####Utility Inspector: UNA ARCE ([id number])[facility]ITAL[facility] [place] (SBHLAB)[address] [place] [address] [place] SEGMENTED NEUTROPHILS/100 LEUKOCYTES-CE 83 % High 38-82 [facility] Comment on above: Performed By: #### L [id number], [id number] ####Utility Inspector: UNA ARCE ([id number])[facility] [place] (SBHLAB)[address] [place] [address] [place] STOMATOCYTES IN BLOOD BY LIGHT MICROSCOPY Moderate Abnormal (none) [facility] Comment on above: Performed By: #### L [id number], [id number] ####Utility Inspector: UNA ARCE ([id number])[facility] (SBHLAB)[address] UNCLASSIFIED CELLS TOTAL PER COUNTED LEUKOCYTES BY MANUAL COUNT Normal [facility] Comment on above: Performed By: #### L [id number], [id number] ####Utility Inspector: UNA BERMUDEZPEDRO ([id number])[facility] (SBHLAB)[address] VARIANT LYMPHOCYTES TOTAL PER COUNTED LEUKOCYTES BY MANUAL COUNT Normal [facility] Comment on above: Performed By: #### L [id number], [id number] ####Utility Inspector: UNA STAUFFERMELANIE ([id number])[facility] (SBHLAB)[address] Magnesium [Mass/Vol]on 04-07 Interpretation and review of laboratory results Normal [facility] No Panel Informationon 04-07 Eosinophils Manual 3 High 0 - 1 [facility] Lymphocytes Manual 8 [facility] Monocytes Manual 7 [facility] alth Neutrophils Manual 86 [facility] No Panel InformationOrdered By: Sharita Beck on 04-07-2025 Interpretation and review of laboratory results Abnormal [facility] Progress Noteon 04-07-2025 Progress [facility] Progress Note Normal [facility] Progress [facility] Normal [facility] Progress [facility] Normal [facility] [id number] 04-06-2025 [id number] Normal [facility] CBC W Auto Differential pane l (Bld)Ordered By: Annmarie Zuñiga on 04-06-2025 Hematocrit (Bld) [Volume fraction] 27.2 % Low 40.0 - 52.0 % [facility] Hemoglobin (Bld) [Mass/Vol] 7.6 g/dL Low 13.0 - 18.0 g/dL [facility] MCH (RBC) [Entitic mass] 22 pg Low 26. 0 - 34.0 pg [facility] MCV (RBC) [Entitic vol] 78.6 fL 77.0 - 99.0 fL [facility] RBC (Bld) [#/Vol] 3.46 10*6/uL Low 4.40 - 5.9 0 10*6/uL [facility] CBC WITH AUTO DIFFERENTIALon 04-06-2025 Erythrocyte distribution width (RBC) [Ratio] 20.5 % High 11.5-15.0 [facility] Comment on above: Performed By: #### L [id number], [id number] ####Utility Inspector: UNA ARCE ([id number])[facility] (SBHLAB)[address] [place] [address] Hematocrit (Bld) [Volume fraction] 27.2 % Low 40.0-52.0 [facility] Comment on above: Performed By: #### L [id number], [id number] ####Utility Inspector: UNA ARCE ([id number])[facility] ([facility] [place] [address] Hemoglobin (Bld) [Mass/Vol] 7.6 g/dL Low 13.0-18.0 [facility] Comment on above: Performed By: #### L [id number], [id number] ####Utility Inspector: UNA ARCE ([id number])[facility] ([facility])[address] [place] [address] MCH (RBC) [Entitic mass] 22.0 pg Low 26.0-34.0 [facility] Comment on above: Performed By: #### L [id number], [id number] ####Utility Inspector: UNA ARCE ([id number])[facility] (SBHLAB)[address] [place] [address] MCHC 27.9 % Low 30.5-36.0 [facility] Comment on above: Performed By: #### L [id number], [id number] ####Utility Inspector: UNA ARCE ([id number])[facility] (SBHLAB)[address] [place] [address] MCV (RBC) [Entitic vol] 78.6 fL Normal 77.0-99.0 [facility] Comment on above: Performed By: #### L [id number], [id number] ####Utility Inspector: UNA ARCE ([id number])LYNETTE BASHIRMarisol (SBHLAB)[address] [place] [address] Platelet mean volume (Bld) [Entitic vol] 9.7 fL Normal 9.0-12.7 [facility] Comment on above: Performed By: #### L [id number], [id number] ####Utility Inspector: UNA ARCE ([id number])[facility] [place] (SBHLAB)[address] Platelets (Bld) [#/Vol] 344 10*3/uL Normal 140-440 [facility] Comment on above: Performed By: #### L [id number], [id number] ####Utility Inspector: UNA ARCE ([id number])[facility] [place] (SBHLAB)[address] [place] [address] RBC (Bld) [#/Vol] 3.46 10*6/uL Low 4.40-5.90 [facility] Comment on above: Performed By: #### L [id number], [id number] ####Utility Inspector: UNA ARCE ([id number])[facility] BASHIRMarisol (SBHLAB)[address] [place] [address] WBC (Bld) [#/Vol] 10.3 10*3/uL Normal 3.6-10.7 [facility] Comment on above: Performed By: #### L [id number], [id number] ####Utility Inspector: UNA ARCE ([id number])[facility] [place] (SBHLAB)[address] COMPREHENSIVE METABOLIC PANE Anant 04-06-2025 Albumin [Mass/Vol] 2.6 g/dL Low 3.4-4.8 [facility] Comment on above: Performed By: #### L AB17, [id number] ####Utility Inspector: UNA ARCE ([id number])[facility] [place] (SBHLAB)[address] ALP [Catalytic activity/Vol] 63 U/L Normal 40-150 [facility] Comment on above: Performed By: #### L AB17, [id number] ####Utility Inspector: UNA ARCE ([id number])[facility] [place] (SBHLAB)[address] [place] [address] [place] ALT [Catalytic activity/Vol] 6 U/L Normal <40 [facility] Comment on above: Performed By: #### L AB17, [id number] ####Utility Inspector: UNA ARCE ([id number])[facility] [place] (SBHLAB)[address] Anion gap [Moles/Vol] 13 mmol/L Normal 3-13 [facility] Comment on above: Performed By: #### L AB17, [id number] ####Utility Inspector: UNA ARCE ([id number])[facility] [place] (SBHLAB)[address] AST [Catalytic activity/Vol] 25 U/L Normal <34 [facility] Comment on above: Performed By: #### L AB17, [id number] ####Utility Inspector: UNA ARCE ([id number])[facility] [place] (SBHLAB)[address] Bilirubin [Mass/Vol] 1.7 mg/dL High <1.2 [facility] Comment on above: Performed By: #### L AB17, [id number] ####Utility Inspector: UNA ARCE ([id number])[facility] [place] (SBHLAB)[address] [place] [address] [place] Calcium [Mass/Vol] 8.2 mg/dL Low 8.8-10.0 [facility] Comment on above: Performed By: #### L AB17, [id number] ####Utility Inspector: UNA ARCE ([id number])[facility] [place] (SBHLAB)[address] Chloride [Moles/Vol] 104 mmol/L Normal 98-107 [facility] Comment on above: Performed By: #### L AB17, [id number] ####Utility Inspector: UNA ARCE ([id number])[facility] (SBHLAB)[address] CO2 [Moles/Vol] 26 mmol/L Normal 23-31 [facility] Comment on above: Performed By: #### L AB17, [id number] ####Utility Inspector: UNA ARCE ([id number])[facility] (SBHLAB)[address] Creatinine [Mass/Vol] 1.44 mg/dL High 0.72-1.25 [facility] Comment on above: Performed By: #### L AB17, [id number] ####Utility Inspector: UNA ARCE ([id number])[facility] (SBHLAB)[address] GLOMERULAR FILTRATION RATE ML/MIN/1.73 SQ M.PREDICTED 46.4 mL/min/1.73m*2 Low >60.0 [facility] Comment on above: Result Comment: Calc ulation based on the Chronic Kidney Disease Epidemiology Collaboration (CKD-EPI) equation refit without adjustment for race Performed By: #### L AB17, [id number] ####Utility Inspector: UNA ARCE ([id number])[facility] (SBHLAB)[address] Glucose [Mass/Vol] 98 mg/dL Normal 82-115 [facility] Comment on above: Performed By: #### L AB17, [id number] ####Utility Inspector: UNA ARCE ([id number])[facility] (SBHLAB)[address] Potassium [Moles/Vol] 4.2 mmol/L Normal 3.5-5.1 [facility] Comment on above: Result Comment: [facility] potassium values may be up to 0.5 mmol/L lower than serum values. Performed By: #### L AB17, [id number] ####Utility Inspector: UNA MOHRCER ([id number])[facility]ITALAngel [facility] (SBHLAB)[address] Protein [Mass/Vol] 6.1 g/dL Low 6.4-8.3 [facility] Comment on above: Performed By: #### L AB17, [id number] ####Utility Inspector: UNA BERMUDEZPEDRO ([id number])[facility] [place] (SBHLAB)[address] Sodium [Moles/Vol] 143 mmol/L Normal 136-145 [facility] Comment on above: Performed By: #### L AB17, [id number] ####Utility Inspector: UNA BERMUDEZPEDRO ([id number])[facility] [place] (SBHLAB)[address] Urea nitrogen [Mass/Vol] 24 mg/dL High 9-23 [facility] Comment on above: Performed By: #### L AB17, [id number] ####Utility Inspector: UNA BERMUDEZPEDRO ([id number])[facility] (SBHLAB)[address] ABDOMEN PELVIS WO IV CONT RASTon 04-06-2025 CT ABDOMEN PELVIS WO IV CONTRAST Normal [facility] CT Abdomen and Pelvis WO con traston 04-06-2025 [facility] Radiology Study observation (narrative) Lynette Balderrama alth CT Abdomen and Pelvis WO con trastOrdered By: Sergey Gooden on 04-06-2025 [facility] [employer] Phone: CT CHEST WO IV CONTRASTon CT CHEST WO IV CONTRAST Normal [facility] CT Chest WO contraston 04-06 [facility] Radiology Study observation (narrative) Monishaangel Balderrama alth CT Chest WO contrastOrdered By: Cari Lazaro on 04-06-2025 [facility] [employer] Phone: Consulton 04-06-2025 Consult Normal [facility] Consult Normal [facility] ECG 12-LEADon 04-06-2025 ECG 12-LEAD IMPRESSION: Sinus arrhythmia Nonspecific intraventricular conduction delay Probable anterolateral infarct, old No previous ECG for comparison Electronically Signed On 04-06-2025 01:54:21 EDT by Maki Laird Normal [facility] IRON AND TIBCon 04-06-2025 IRON BINDING CAPACITY 381 ug/dL Normal 250-450 [facility] Comment on above: Performed By: #### L [id number] ####Utility Inspector: UNA ARCE ([id number])[facility] ([facility])[address] IRON SATURATION 49.3 % Normal 20.0-50.0 [facility] Comment on above: Performed By: #### L [id number] ####Utility Inspector: UNA ARCE ([id number])[facility] [place] ([facility])[address] IRON, TOTAL 188 ug/dL High 65-175 [facility] Comment on above: Performed By: #### L [id number] ####Utility Inspector: UNA ARCE ([id number])[facility] [place] ([facility])[address] Laboratory - Hematology and Cell countson 04-06-2025 Basophils (Bld) [#/Vol] 0.2 10*3/uL 0.0 - 0.2 10*3/uL [facility] Basophils/100 WBC (Bld) 2 % 0 - 2 % [facility] Lymphocytes (Bld) [#/Vol] 1.4 10*3/uL 1.0 - 4.3 10*3/uL [facility] Lymphocytes/100 WBC (Bld) 14 % Low 15 - 45 % [facility] Monocytes (Bld) [#/Vol] 0.7 10*3/uL 0.0 - 0.9 10*3/uL [facility] Monocytes/100 WBC (Bld) 7 % 5 - 13 % S [facility] RBC morphology finding Nom (Bld) abnormal [facility] MAGNESIUMon 04-06-2025 Magnesium [Mass/Vol] 1.8 mg/dL Normal 1.6-2.6 [facility] Comment on above: Result Comment: ORDE R COMMENTS:Higher values can be expected in females during menses. Performed By: #### L [id number], [id number] ####Utility Inspector: UNA ARCE ([id number])[facility] ([facility]AB)[address] MANUAL DIFFERENTIAL (CELLAVI BANDAR)on 04-06-2025 ANISOCYTOSIS PRESENCE IN BLOOD BY LIGHT MICROSCOPY Moderate Abnormal (none) [facility] Comment on above: Performed By: #### L [id number], [id number] ####Utility Inspector: UNA ARCE ([id number])[facility] ([facility])[address] BAND NEUTROPHILS TOTAL PER COUNTED LEUKOCYTES BY MANUAL COUNT 1 Normal [facility] Comment on above: Performed By: #### L [id number], [id number] ####Utility Inspector: UNA ARCE ([id number])[facility] [place] (SBHLAB)[address] BANDS (10*3/UL) IN BLOOD-CELLAVISION 0.1 10*3/uL High <=0.0 [facility] Comment on above: Performed By: #### L [id number], [id number] ####Utility Inspector: UNA ARCE ([id number])[facility] (SBHLAB)[address] [place] [address] [place] BASOPHILS (10*3/UL) IN BLOOD-CELLAVISION 0.2 10*3/uL Normal 0.0-0.2 [facility] Comment on above: Performed By: #### L [id number], [id number] ####Utility Inspector: UNA ARCE ([id number])[facility] (SB[facility])[address] BASOPHILS TOTAL PER COUNTED LEUKOCYTES BY MANUAL COUNT 2 Normal [facility] Comment on above: Performed By: #### L [id number], [id number] ####Utility Inspector: UNA YAZMIN ([id number])[facility] [place] (SBHLAB)[address] [place] [address] [place] BASOPHILS/100 LEUKOCYTES IN BLOOD-CELLAVISION 2 % Normal 0-2 [facility] Comment on above: Performed By: #### L [id number], [id number] ####Utility Inspector: UNA BERMUDEZPEDRO ([id number])[facility] [place] (SBHLAB)[address] [place] [address] [place] BLASTS TOTAL PER COUNTED LEUKOCYTES BY MANUAL COUNT Normal [facility] Comment on above: Performed By: #### L [id number], [id number] ####Utility Inspector: UNA BERMUDEZPEDRO ([phone])[facility] [place] (SBHLAB)[address] [place] [address] [place] EOSINOPHILS TOTAL PER COUNTED LEUKOCYTES BY MANUAL COUNT Normal [facility] Comment on above: Performed By: #### L [id number], [id number] ####Utility Inspector: UNA BERMUDEZPEDRO ([id number])[facility] [place] (SBHLAB)[address] [place] [address] [place] HYPOCHROMIA (PRESENCE) IN BLOOD BY LIGHT MICROSCOPY Moderate Abnormal (none) [facility] Comment on above: Performed By: #### L [id number], [id number] ####Utility Inspector: UNA BERMUDEZPEDRO ([phone])[facility] [place] (SBHLAB)[address] [place] [address] [place] LYMPHOCYTES (10*3/UL) IN BLOOD-CELLAVISION 1.4 10*3/uL Normal 1.0-4.3 [facility] Comment on above: Performed By: #### L [id number], [id number] ####Utility Inspector: UNA BERMUDEZPEDRO ([id number])[facility] [place] (SBHLAB)[address] [place] [address] [place] LYMPHOCYTES TOTAL PER COUNTED LEUKOCYTES BY MANUAL COUNT 14 Normal [facility] Comment on above: Performed By: #### L [id number], [id number] ####Utility Inspector: UNA STAUFFERMELANIE ([id number])[facility] [place] (SBHLAB)[address] [place] [address] [place] LYMPHOCYTES/100 LEUKOCYTES IN BLOOD-CELLAVISION 14 % Low 15-45 [facility] Comment on above: Performed By: #### L [id number], [id number] ####Utility Inspector: UNA BERMUDEZPEDRO ([id number])[facility] [place] (SBHLAB)[address] [place] [address] [place] METAMYELOCYTES TOTAL PER COUNTED LEUKOCYTES BY MANUAL COUNT Normal [facility] Comment on above: Performed By: #### L [id number], [id number] ####Utility Inspector: UNA BERMUDEZPEDRO ([id number])[facility] [place] (SBHLAB)[address] [place] [address] [place] MICROCYTES (PRESENCE) IN BLOOD BY LIGHT MICROSCOPY Slight Abnormal (none) [facility] Comment on above: Performed By: #### L [id number], [id number] ####Utility Inspector: UNA BERMUDEZPEDRO ([id number])[facility] [place] (SBHLAB)[address] [place] [address] [place] MONOCYTES (10*3/UL) IN BLOOD-CELLAVISION 0.7 10*3/uL Normal 0.0-0.9 [facility] Comment on above: Performed By: #### L [id number], [id number] ####Utility Inspector: UNA ARCE ([id number])[facility] [place] (SBHLAB)[address] [place] [address] [place] MONOCYTES TOTAL PER COUNTED LEUKOCYTES BY MANUAL COUNT 7 Normal [facility] Comment on above: Performed By: #### L [id number], [id number] ####Utility Inspector: UNA STAUFFERMELANIE ([id number])[facility] [place] (SBHLAB)[address] [place] [address] [place] MONOCYTES/100 LEUKOCYTES IN BLOOD-LUCIANA 7 % Normal 5-13 [facility] Comment on above: Performed By: #### L [id number], [id number] ####Utility Inspector: UNA ARCE ([id number])[facility] [place] (SBHLAB)[address] [place] [address] [place] MYELOCYTES COUNTED BY MANUAL COUNT Normal [facility] Comment on above: Performed By: #### L [id number], [id number] ####Utility Inspector: UNA ARCE ([id number])[facility] [place] (SBHLAB)[address] [place] [address] [place] NEUTROPHILS BAND FORM/100 LEUKOCYTES IN BLOOD-CELLAVISI 1 % High <=0 [facility] Comment on above: Performed By: #### L [id number], [id number] ####Utility Inspector: UNA ARCE ([id number])[facility] [place] (SBHLAB)[address] [place] [address] [place] NEUTROPHILS TOTAL PER COUNTED LEUKOCYTES BY MANUAL COUNT 79 Normal [facility] Comment on above: Performed By: #### L [id number], [id number] ####Utility Inspector: UNA ARCE ([id number])[facility] [place] (SBHLAB)[address] [place] [address] [place] NUCLEATED ERYTHROCYTES/100 LEUKOCTES IN BLOOD-CELLAVISION 1 % Normal 0-2 [facility] Comment on above: Performed By: #### L [id number], [id number] ####Utility Inspector: UNA ARCE ([id number])[facility] [place] (SBHLAB)[address] [place] [address] [place] POIKILOCYTOSIS (PRESENCE) IN BLOOD BY LIGHT MICROSCOPY Slight Abnormal (none) [facility] Comment on above: Performed By: #### L [id number], [id number] ####Utility Inspector: UNA ARCE ([id number])[facility] [place] (SBHLAB)[address] [place] [address] [place] PROMYELOCYTES TOTAL PER COUNTED LEUKOCYTES BY MANUAL COUNT Normal [facility] Comment on above: Performed By: #### L [id number], [id number] ####Utility Inspector: UNA ARCE ([id number])[facility] [place] (SBHLAB)[address] [place] [address] [place] RBC MORPHOLOGY IN BLOOD abnormal Normal S [facility] Comment on above: Performed By: #### L [id number], [id number] ####Utility Inspector: UNA ARCE ([id number])[facility] [place] (SBHLAB)[address] [place] [address] [place] SEGMENTED NEUTROPHILS (10*3/UL) IN BLOOD-CELLAVISION 8.0 10*3/uL High 1.8-7.5 [facility] Comment on above: Performed By: #### L [id number], [id number] ####Utility Inspector: UNA ARCE ([id number])[facility] [place] (SBHLAB)[address] [place] [address] [place] SEGMENTED NEUTROPHILS/100 LEUKOCYTES-CE 77 % Normal 38-82 [facility] Comment on above: Performed By: #### L [id number], [id number] ####Utility Inspector: UNA ARCE ([id number])[facility] [place] (SBHLAB)[address] [place] [address] [place] STOMATOCYTES IN BLOOD BY LIGHT MICROSCOPY Slight Abnormal (none) [facility] Comment on above: Performed By: #### L [id number], [id number] ####Utility Inspector: UNA ARCE ([id number])[facility] [place] (SBHLAB)[address] [place] [address] [place] UNCLASSIFIED CELLS TOTAL PER COUNTED LEUKOCYTES BY MANUAL COUNT [facility] Comment on above: Performed By: #### L [id number], [id number] ####Utility Inspector: UNA ARCE ([id number])[facility] [place] (SBHLAB)[address] [place] [address] [place] VARIANT LYMPHOCYTES TOTAL PER COUNTED LEUKOCYTES BY MANUAL COUNT Normal [facility] Comment on above: Performed By: #### L [id number], [id number] ####Utility Inspector: UNA ARCE ([id number])[facility] [place] (SBHLAB)[address] [place] [address] [facility] Nursing Noteon 04-06-2025 Nursing Note Normal [facility] Nursing Note Transfused two pint of blood. No any allergic reaction seen.vital signs are within normal limits. Normal [facility] Progress Noteon 04-06-2025 Progress [facility] Progress [facility] US Heart TransthoracicOrdere d By: Thomas Hinton on 04-06-2025 Ao Root Index 1.47 cm/m2 [facility] Work Phone: Aortic Root 3 cm [facility] Work Phone: Aortic valve Mean systole pressure gradient by US.doppler derived full Bernoulli 7 mmHg [facility] Work Phone: Aortic valve Orifice area by US 3.1 cm2 [facility] Work Phone: Aortic valve Peak systolic flow by US.doppler 1.3 m/s [facility] Work Phone: Ascending Aorta 3.1 cm [facility] Work Phone: Ascending Aorta Index 1.52 cm/m2 [facility] Work Phone: AV Area by Peak Velocity 1.5 cm2 [facility] Work Phone: AV Area by VTI 1.3 cm2 [facility] Work Phone: AV Peak Gradient 15 mmHg [facility] Work Phone: AV Peak Velocity 1.9 m/s [facility] Work Phone: AV Velocity Ratio 0.47 [facility] Work Phone: AV VTI 37.4 cm [facility] Work Phone: JULIET/BSA Peak Velocity 0.7 cm2/m2 [facility] Work Phone: JULIET/BSA VTI 0.6 cm2/m2 [facility] Work Phone: E/E' Lateral 23 [facility] Work Phone: Est. RA Pressure 15 mmHg [facility] Work Phone: Fractional Shortening 2D 8 % 28 - 44 % [facility] Work Phone: Interpretation and review of laboratory results Abnormal [facility] Work Phone: IVSd 1.1 cm Abnormal 0.6 - 1.0 cm [facility] Work Phone: LA Diameter 4 cm [facility] Work Phone: LA Size Index 1.96 cm/m2 [facility] Work Phone: LA Volume 4C 56 mL 18 - 58 mL [facility] Work Phone: LA Volume Index 4C 27 mL/m2 16 - 34 mL/m2 [facility] Work Phone: LA/AO Root Ratio 1.33 [facility] Work Phone: Left ventricular Ejection fraction by US.2D+Calculated by biplane method of disks 22 % Abnormal 55 - 100 % [facility] Work Phone: LV E' Lateral Velocity 5 cm/s [facility] Work Phone: LV EDV A2C 331 mL [facility] Work Phone: LV EDV A4C 293 mL [facility] Work Phone: LV EDV BP 315 mL Abnormal 67 - 155 mL [facility] Work Phone: LV EDV Index A2C 162 mL/m2 [facility] Work Phone: LV EDV Index A4C 144 mL/m2 [facility] Work Phone: LV EDV Index BP 154 mL/m2 [facility] Work Phone: LV Ejection Fraction A2C 26 % [facility] Work Phone: LV Ejection Fraction A4C 22 % [facility] Work Phone: LV ESV A2C 245 mL [facility] Work Phone: LV ESV A4C 229 mL [facility] Work Phone: LV ESV BP 247 mL Abnormal 22 - 58 mL [facility] Work Phone: LV ESV Index A2C 120 mL/m2 [facility] Work Phone: LV ESV Index A4C 112 mL/m2 [facility] Work Phone: LV ESV Index BP 121 mL/m2 [facility] Work Phone: LV Mass 2D 246.9 g Abnormal 88 - 224 g [facility] Work Phone: LV Mass 2D Index 121 g/m2 Abnormal 49 - 115 g/m2 [facility] Work Phone: LV RWT Ratio 0.3 [facility] Work Phone: LVIDd 6 cm Abnormal 4.2 - 5.9 cm [facility] Work Phone: LVIDd Index 2.94 cm/m2 [facility] Work Phone: LVIDs 5.5 cm [facility] Work Phone: LVIDs Index 2.7 cm/m2 [facility] Work Phone: LVOT Cardiac Output 3.2 liter/minute [facility] Work Phone: LVOT Diameter 2 cm [facility] Work Phone: LVOT Mean Gradient 2 mmHg [facility] Work Phone: LVOT Peak Gradient 3 mmHg [facility] Work Phone: LVOT Peak Velocity 0.9 m/s [facility] Work Phone: LVOT Stroke Volume Index 23.2 mL/m2 [facility] Work Phone: LVOT SV 47.4 ml [facility] Work Phone: LVOT VTI 15.1 cm [facility] Work Phone: LVOT:AV VTI Index 0.4 [facility] Work Phone: LVPWd 0.9 cm 0.6 - 1.0 cm [facility] Work Phone: MR VTI 139.2 cm [facility] Work Phone: MV A Velocity 1.12 m/s [facility] Work Phone: MV E Velocity 1.15 m/s [facility] Work Phone: MV E Wave Deceleration Time 179.2 ms [facility] Work Phone: MV E/A 1.03 [facility] Work Phone: MV Nyquist Velocity 36 cm/s [facility] Work Phone: MV Regurg Velocity PISA 4.6 m/s S [facility] [employer] Work Phone: RA Area 4C 34.5 mL [facility] Work Phone: RV Free Wall Peak S' 13 cm/s [facility] Work Phone: RVSP 66 mmHg [facility] Work Phone: TAPSE 2.4 cm 1.7 cm [facility] Work Phone: TR Max Velocity 3.58 m/s [facility] Work Phone: TR Peak Gradient 51 mmHg [facility] Work Phone: [facility] Work Phone: US Heart Transthoracicon CV CPACS BASIC METABOLIC PANELon 03-10 Anion gap [Moles/Vol] 8 mmol/L Normal 3-13 [facility] Comment on above: Performed By: #### L [id number], LAB15, [id number], LAB20, LAB69, [id number], [id number], LAB89 ####Utility Inspector: UNA ARCE ([id number])[facility] [place] (SBHLAB)[address] Calcium [Mass/Vol] 8.4 mg/dL Low 8.8-10.0 [facility] Comment on above: Performed By: #### L AB67, LAB15, [id number], LAB20, LAB69, [id number], [id number], LAB89 ####Utility Inspector: UNA ARCE ([id number])[facility] (SBHLAB)[address] Chloride [Moles/Vol] 105 mmol/L Normal 98-107 [facility] Comment on above: Performed By: #### L AB67, LAB15, ROE300, LAB20, LAB69, [id number], [id number], LAB89 ####Utility Inspector: UNA ARCE ([id number])[facility] (SBHLAB)[address] CO2 [Moles/Vol] 27 mmol/L Normal 23-31 [facility] Comment on above: Performed By: #### L AB67, LAB15, KWE268, LAB20, LAB69, [id number], [id number], LAB89 ####Utility Inspector: UNA ARCE ([id number])[facility] (SBHLAB)[address] Creatinine [Mass/Vol] 1.46 mg/dL High 0.72-1.25 [facility] Comment on above: Performed By: #### L AB67, LAB15, [id number], LAB20, LAB69, [id number], [id number], LAB89 ####Utility Inspector: UNA ARCE ([id number])[facility] (SBHLAB)[address] GLOMERULAR FILTRATION RATE ML/MIN/1.73 SQ M.PREDICTED 45.7 mL/min/1.73m*2 Low >60.0 [facility] Comment on above: Result Comment: Calc ulation based on the Chronic Kidney Disease Epidemiology Collaboration (CKD-EPI) equation refit without adjustment for race Performed By: #### L AB67, LAB15, SEV412, LAB20, LAB69, OLE339, [id number], LAB89 ####Utility Inspector: UNA ARCE ([id number])[facility] (SBHLAB)[address] Glucose [Mass/Vol] 108 mg/dL Normal 82-115 [facility] Comment on above: Performed By: #### L AB67, LAB15, WGB090, LAB20, LAB69, [id number], [id number], LAB89 ####Utility Inspector: UNA ARCE ([id number])[facility] (SBHLAB)[address] Potassium [Moles/Vol] 4.5 mmol/L Normal 3.5-5.1 [facility] Comment on above: Result Comment: [facility] potassium values may be up to 0.5 mmol/L lower than serum values. Performed By: #### L AB67, LAB15, HUF764, LAB20, LAB69, VGS990, [id number], LAB89 ####Utility Inspector: UNA ARCE ([id number])[facility] Sodium [Moles/Vol] 140 mmol/L Normal 136-145 [facility] Comment on above: Performed By: #### L AB67, LAB15, [id number], LAB20, LAB69, GWX758, [id number], LAB89 ####Utility Inspector: UNA ARCE ([id number])[facility] (HLAB)[address] Urea nitrogen [Mass/Vol] 24 mg/dL High 9-23 [facility] Comment on above: Performed By: #### L AB67, LAB15, QLE508, LAB20, LAB69, [id number], [id number], LAB89 ####Utility Inspector: UNA ARCE ([id number])[facility] (HLAB)[address] BLOOD TYPE AND SCREEN GELon 04-05-2025 ABO GROUPING A Normal [facility] Comment on above: Performed By: #### L [id number] ####Utility Inspector: UNA ARCE ([id number])[facility]OD [facility] ([facility])[address] [place] [address] RH TYPE IN BLOOD Negative Normal [facility] Comment on above: Performed By: #### L AB276 ####Utility Inspector: UNA ARCE ([id number])[facility] ([facility])[address] CBC WITH AUTO DIFFERENTIALon 04-05-2025 Erythrocyte distribution width (RBC) [Ratio] 19.9 % High 11.5-15.0 [facility] Comment on above: Performed By: #### L AB296, [id number], [id number] ####Utility Inspector: UNA ARCE ([id number])[facility] ([facility])[address] [place] [address] Hematocrit (Bld) [Volume fraction] 20.7 % Low 40.0-52.0 [facility] Comment on above: Performed By: #### L AB296, [id number], [id number] ####Utility Inspector: UNA ARCE ([id number])[facility] ([facility])[address] [place] [address] Hemoglobin (Bld) [Mass/Vol] 5.5 g/dL Critically low 13.0-18.0 [facility] Comment on above: Performed By: #### L AB296, [id number], [id number] ####Utility Inspector: UNA ARCE ([id number])[facility])[address] [place] [address] MCH (RBC) [Entitic mass] 19.4 pg Low 26.0-34.0 [facility] Comment on above: Performed By: #### L AB296, [id number], [id number] ####Utility Inspector: UNA ARCE ([id number])[facility] (SBHLAB)[address] MCHC 26.6 % Low 30.5-36.0 [facility] Comment on above: Performed By: #### L AB296, [id number], [id number] ####Utility Inspector: UNA ARCE ([id number])[facility] (SBHLAB)[address] MCV (RBC) [Entitic vol] 73.1 fL Low 77.0-99.0 [facility] Comment on above: Performed By: #### L AB296, [id number], [id number] ####Utility Inspector: UNA ARCE ([id number])[facility] (SBHLAB)[address] Platelet mean volume (Bld) [Entitic vol] 9.4 fL Normal 9.0-12.7 [facility] Comment on above: Performed By: #### Gilbert AB296, [id number], [id number] ####Utility Inspector: UNA ARCE ([id number])[facility] (SBHLAB)[address] Platelets (Bld) [#/Vol] 358 10*3/uL Normal 140-440 [facility] Comment on above: Performed By: #### L AB296, [id number], [id number] ####Utility Inspector: UNA ARCE ([id number])[facility] (SBHLAB)[address] RBC (Bld) [#/Vol] 2.83 10*6/uL Low 4.40-5.90 [facility] Comment on above: Performed By: #### L AB296, [id number], [id number] ####Utility Inspector: UNA ARCE ([id number])[facility] [place] (SB[facility]AB)[address] WBC (Bld) [#/Vol] 10.0 10*3/uL Normal 3.6-10.7 [facility] Comment on above: Performed By: #### L AB296, [id number], [id number] ####Utility Inspector: UNA ARCE ([id number])[facility] (SB[facility])[address] [place] [address] ED Provider Noteon ED Provider Note Normal [facility] FERRITINon 04-05-2025 Ferritin [Mass/Vol] 19 ng/mL Low 22-275 [facility] Comment on above: Result Comment: YARELI [place] COMMENTS:Ferritin levels below 10 ng/mL have been reported as indicative of iron deficiency anemia. Performed By: #### L [id number], LAB18, LAB68 ####Utility Inspector: UNA ARCE ([id number])[facility] (SB[facility])[address] [place] [address] FOLATEon 04-05-2025 FOLATE RESULT 13.7 ng/mL Normal 7.0-31.4 [facility] Comment on above: Performed By: #### L AB67, LAB15, KOR633, LAB20, LAB69, GJV183, [id number], LAB89 ####Utility Inspector: UNA ARCE ([id number])[facility] ([facility])[address] [place] [address] HAPTOGLOBINon 04-05-2025 HAPTOGLOBIN 226 mg/dL Normal 50-270 [facility] Comment on above: Performed By: #### L AB67, LAB15, NAT297, LAB20, LAB69, UMG284, [id number], LAB89 ####Utility Inspector: UNA ARCE ([id number])[facility] ([facility])[address] [place] [address] HEPATIC FUNCTION PANELon Albumin [Mass/Vol] 2.7 g/dL Low 3.4-4.8 [facility] Comment on above: Performed By: #### L AB67, LAB15, OFQ334, LAB20, LAB69, [id number], [id number], LAB89 ####Utility Inspector: UNA ARCE ([id number])[facility] ([facility])[address] ALP [Catalytic activity/Vol] 65 U/L Normal 40-150 [facility] Comment on above: Performed By: #### L AB67, LAB15, WEJ387, LAB20, LAB69, [id number], [id number], LAB89 ####Utility Inspector: UNA ARCE ([id number])[facility] (HLAB)[address] ALT [Catalytic activity/Vol] 7 U/L Normal <40 [facility] Comment on above: Performed By: #### L AB67, LAB15, PML340, LAB20, LAB69, NCH671, [id number], LAB89 ####Utility Inspector: UNA ARCE ([id number])[facility] ([facility] AST [Catalytic activity/Vol] 22 U/L Normal <34 [facility] Comment on above: Performed By: #### L AB67, LAB15, QWE982, LAB20, LAB69, XUP578, [id number], LAB89 ####Utility Inspector: UNA ARCE ([id number])[facility] ([facility])[address] Bilirubin [Mass/Vol] 0.5 mg/dL Normal <1.2 [facility] Comment on above: Performed By: #### L AB67, LAB15, [id number], LAB20, LAB69, DNV367, [id number], LAB89 ####Utility Inspector: UNA ARCE ([id number])[facility] ([facility])[address] [place] [address] [place] Bilirubin.indirect [Mass/Vol] 0.2 mg/dL Normal <0.5 [facility] Comment on above: Performed By: #### L [id number], LAB15, [id number], LAB20, LAB69, [id number], [id number], LAB89 ####Utility Inspector: UNA ARCE ([id number])[facility] [place] [address] Protein [Mass/Vol] 6.4 g/dL Normal 6.4-8.3 [facility] Comment on above: Result Comment: Seru m protein values are higher than plasma values. Samples from recumbent persons are lower by up to 0.5 g/dL as compared to ambulatory persons. After 60 years values are lower by up to 0.2 g/dL. Performed By: #### L AB67, LAB15, [id number], LAB20, LAB69, [id number], [id number], LAB89 ####Utility Inspector: UNA ARCE ([id number])[facility] ([facility])[address] [place] [address] HIGH SENSITIVITY TROPONIN, S ERIAL BASELINEon 04-05-2025 TROPONIN HS SERIAL BASELINE 29 ng/L Normal <=35 [facility] Comment on above: Result Comment: In i ndividuals presenting with symptoms > 2h, a baseline troponin <= 5 ng/L suggests acutecardiac injury is unlikely and further serial testing is generally not indicated. Performed By: #### L [id number] ####Utility Inspector: UNA ARCE ([id number])[facility] ([facility])[address] [place] [address] TROPONIN HS SERIAL BASELINE 30 ng/L Normal <=35 [facility] Comment on above: Result Comment: In i ndividuals presenting with symptoms > 2h, a baseline troponin <= 5 ng/L suggests acutecardiac injury is unlikely and further serial testing is generally not indicated. Performed By: #### L [id number], LAB15, [id number], LAB20, LAB69, [id number], [id number], LAB89 ####Utility Inspector: UNA ARCE ([id number])[facility] ([facility])[address] [place] [address] HIGH SENSITIVITY TROPONIN, S ERIAL, SECOND TESTon 04-05-2025 2H TROPONIN HS (SERIAL 2ND TROPONIN) 28 ng/L Normal <=35 [facility] Comment on above: Result Comment: 2h t roponin (2nd troponin) samples collected between 1h 40 min and 2h and 20 min of the baseline collection time can be utilized to interpret delta troponins as per [facility] algorithms. Samples collected outside this timeframe need to be interpreted clinically.Rising or falling troponin delta below 2 ng/L as compared to baseline value suggests thatacute cardiac injury is unlikely. Performed By: #### L [id number], LAB18, LAB68 ####Utility Inspector: UNA ARCE ([id number])[facility] [place] ([facility])[address] LIPID PANELon 04-05-2025 Cholesterol [Mass/Vol] 89 mg/dL Normal <200 [facility] Comment on above: Performed By: #### Gilbert [id number], LAB18, LAB68 ####Utility Inspector: UNA ARCE ([id number])[facility] [place] ([facility])[address] Cholesterol in HDL [Mass/Vol] 29 mg/dL Low >=60 [facility] Comment on above: Performed By: #### Gilbert [id number], LAB18, LAB68 ####Utility Inspector: UNA ARCE ([id number])[facility] ([facility])[address] Cholesterol.total/Choles terol in HDL [Mass ratio] 3 {ratio} Normal [facility] Comment on above: Result Comment: Ref Range:< 3 Low Risk for CHD3-6 Mod Risk for CHD> 6 High Risk for CHD Performed By: #### L [id number], LAB18, LAB68 ####Utility Inspector: UNA ARCE ([id number])[facility] ([facility])[address] LOW DENSITY LIPOPROTEIN 48 mg/dL Normal 0-<100 [facility] Comment on above: Performed By: #### L [id number], LAB18, LAB68 ####Utility Inspector: UNA ARCE ([id number])[facility] ([facility])[address] NON-HDL CHOLESTEROL, CALCULATED 60 Normal <130 [facility] Comment on above: Performed By: #### L [id number], LAB18, LAB68 ####Utility Inspector: UNA ARCE ([id number])[facility] [place] ([facility])[address] Triglyceride [Mass/Vol] 60 mg/dL Normal <150 [facility] Comment on above: Performed By: #### L [id number], LAB18, LAB68 ####Utility Inspector: UNA ARCE ([id number])[facility] ([facility])[address] VERY LOW DENSITY LIPOPROTEIN, CALCULATED 12 mg/dL Normal <=30 [facility] Comment on above: Performed By: #### L [id number], LAB18, LAB68 ####Utility Inspector: UNA ARCE ([id number])[facility] [place] ([facility])[address] MANUAL DIFFERENTIAL (CELLAVI BANDAR)on 04-05-2025 ANISOCYTOSIS PRESENCE IN BLOOD BY LIGHT MICROSCOPY Moderate Abnormal (none) [facility] Comment on above: Performed By: #### L [id number], [id number], [id number] ####Utility Inspector: UNA ARCE ([id number])[facility] ([facility])[address] [place] [address] BAND NEUTROPHILS TOTAL PER COUNTED LEUKOCYTES BY MANUAL COUNT [facility] Comment on above: Performed By: #### L [id number], [id number], [id number] ####Utility Inspector: UNA ARCE ([id number])[facility] [place] ([facility])[address] BASOPHILS TOTAL PER COUNTED LEUKOCYTES BY MANUAL COUNT [facility] Comment on above: Performed By: #### L [id number], [id number], [id number] ####Utility Inspector: UNA ARCE ([id number])[facility] [place] ([facility])[address] [place] [address] [place] BLASTS TOTAL PER COUNTED LEUKOCYTES BY MANUAL COUNT Normal [facility] Comment on above: Performed By: #### L AB296, [id number], [id number] ####Utility Inspector: UNA ARCE ([id number])[facility] [place] ([facility])[address] EOSINOPHILS TOTAL PER COUNTED LEUKOCYTES BY MANUAL COUNT Normal [facility] Comment on above: Performed By: #### L AB296, [id number], [id number] ####Utility Inspector: UNA ARCE ([id number])[facility] [place] ([facility])[address] HYPOCHROMIA (PRESENCE) IN BLOOD BY LIGHT MICROSCOPY Moderate Abnormal (none) [facility] Comment on above: Performed By: #### L [id number], [id number], [id number] ####Utility Inspector: UNA ARCE ([id number])[facility] [place] ([facility])[address] [place] [address] [place] LYMPHOCYTES (10*3/UL) IN BLOOD-CELLAVISION 1.4 10*3/uL Normal 1.0-4.3 [facility] Comment on above: Performed By: #### L [id number], [id number], [id number] ####Utility Inspector: UNA ARCE ([id number])[facility] [place] ([facility])[address] [place] [address] [place] LYMPHOCYTES TOTAL PER COUNTED LEUKOCYTES BY MANUAL COUNT 15 Normal [facility] Comment on above: Performed By: #### L [id number], [id number], [id number] ####Utility Inspector: UNA ARCE ([id number])[facility] [place] ([facility])[address] [place] [address] [place] LYMPHOCYTES/100 LEUKOCYTES IN BLOOD-CELLAVISION 14 % Low 15-45 [facility] Comment on above: Performed By: #### L [id number], [id number], [id number] ####Utility Inspector: UNA ARCE ([id number])[facility] [place] ([facility]AB)[address] [place] [address] [place] METAMYELOCYTES TOTAL PER COUNTED LEUKOCYTES BY MANUAL COUNT Normal [facility] Comment on above: Performed By: #### L [id number], [id number], [id number] ####Utility Inspector: UNA BERMUDEZPEDRO ([id number])[facility] [place] ([facility])[address] [place] [address] [place] MICROCYTES (PRESENCE) IN BLOOD BY LIGHT MICROSCOPY Slight Abnormal (none) [facility] Comment on above: Performed By: #### L [id number], [id number], [id number] ####Utility Inspector: UNA BERMUDEZPEDRO ([id number])[facility] [place] ([facility])[address] [place] [address] [place] MONOCYTES (10*3/UL) IN BLOOD-CELLAVISION 1.3 10*3/uL High 0.0-0.9 [facility] Comment on above: Performed By: #### L [id number], [id number], [id number] ####Utility Inspector: UNA BERMUDEZPEDRO ([id number])[facility] [place] ([facility])[address] [place] [address] [place] MONOCYTES TOTAL PER COUNTED LEUKOCYTES BY MANUAL COUNT 14 Normal [facility] Comment on above: Performed By: #### L [id number], [id number], [id number] ####Utility Inspector: UNA BERMUDEZPEDRO ([id number])[facility] [place] ([facility])[address] [place] [address] [place] MONOCYTES/100 LEUKOCYTES IN BLOOD-LUCIANA 13 % Normal 5-13 [facility] Comment on above: Performed By: #### L [id number], [id number], [id number] ####Utility Inspector: UNA STAUFFERMELANIE ([id number])[facility] [place] ([facility])[address] [place] [address] [place] MYELOCYTES COUNTED BY MANUAL COUNT Normal [facility] Comment on above: Performed By: #### L [id number], [id number], [id number] ####Utility Inspector: UNA YAZMIN ([id number])[facility] [place] ([facility])[address] [place] [address] [place] NEUTROPHILS TOTAL PER COUNTED LEUKOCYTES BY MANUAL COUNT 76 Normal [facility] Comment on above: Performed By: #### L [id number], [id number], [id number] ####Utility Inspector: UNA YAZMIN ([id number])[facility] [place] ([facility])[address] [place] [address] [place] NUCLEATED ERYTHROCYTES/100 LEUKOCTES IN BLOOD-CELLAVISION 1 % Normal 0-2 [facility] Comment on above: Performed By: #### L [id number], [id number], [id number] ####Utility Inspector: UNAANJEL ARCE ([id number])[facility] [place] ([facility])[address] [place] [address] [place] OVALOCYTES PRESENCE IN BLOOD BY LIGHT MICROSCOPY Slight Abnormal (none) [facility] Comment on above: Performed By: #### L [id number], [id number], [id number] ####Utility Inspector: UNA YAZMIN ([id number])[facility] [place] ([facility])[address] [place] [address] [place] POIKILOCYTOSIS (PRESENCE) IN BLOOD BY LIGHT MICROSCOPY Moderate Abnormal (none) [facility] Comment on above: Performed By: #### L AB296, [id number], [id number] ####Utility Inspector: UNA YAZMIN ([id number])[facility] [place] ([facility])[address] [place] [address] [place] PROMYELOCYTES TOTAL PER COUNTED LEUKOCYTES BY MANUAL COUNT Normal [facility] Comment on above: Performed By: #### L AB296, [id number], [id number] ####Utility Inspector: UNA YAZMIN ([id number])[facility] [place] ([facility])[address] [place] [address] [place] RBC MORPHOLOGY IN BLOOD abnormal Normal [facility] Comment on above: Performed By: #### L AB296, [id number], [id number] ####Utility Inspector: UNA ARCE ([id number])[facility] [place] ([facility])[address] [place] [address] [place] SEGMENTED NEUTROPHILS (10*3/UL) IN BLOOD-CELLAVISION 7.2 10*3/uL Normal 1.8-7.5 [facility] Comment on above: Performed By: #### L AB296, [id number], [id number] ####Utility Inspector: UNA ARCE ([id number])[facility] [place] ([facility])[address] [place] [address] [place] SEGMENTED NEUTROPHILS/100 LEUKOCYTES-CE 72 % Normal 38-82 [facility] Comment on above: Performed By: #### L AB296, [id number], [id number] ####Utility Inspector: UNA ARCE ([id number])[facility] [place] ([facility])[address] [place] [address] [place] STOMATOCYTES IN BLOOD BY LIGHT MICROSCOPY Moderate Abnormal (none) [facility] Comment on above: Performed By: #### L AB296, [id number], [id number] ####Utility Inspector: UNA ARCE ([id number])[facility] [place] ([facility])[address] [employer] CELLS IN BLOOD BY LIGHT MICROSCOPY Slight Abnormal (none) [facility] Comment on above: Performed By: #### L AB296, [id number], [id number] ####Utility Inspector: UNA ARCE ([id number])[facility] [place] ([facility])[address] [place] [address] [place] UNCLASSIFIED CELLS TOTAL PER COUNTED LEUKOCYTES BY MANUAL COUNT Normal [facility] Comment on above: Performed By: #### L AB296, [id number], [id number] ####Utility Inspector: UNA ARCE ([id number])[facility] [place] ([facility])[address] [place] [address] [place] VARIANT LYMPHOCYTES TOTAL PER COUNTED LEUKOCYTES BY MANUAL COUNT Normal [facility] Comment on above: Performed By: #### L AB296, [id number], [id number] ####Utility Inspector: UNA ARCE ([id number])[facility]NETTE BASHIRMarisol (SBHLAB)[address] NT PRO BNPon 04-05-2025 Natriuretic peptide B (Bld) [Mass/Vol] 8438 pg/mL High <450 [facility] Comment on above: Performed By: #### L AB67, LAB15, QXM190, LAB20, LAB69, [id number], [id number], LAB89 ####Utility Inspector: UNA ARCE ([id number])[facility] SANCHEZLUIS (SBHLAB)[address] RETICULOCYTESon 04-05-2025 Reticulocytes/100 RBC (Bld) 2.31 % Normal [facility] Comment on above: Result Comment: Newb orn < 5%Adults 0.4 - 2.0% Performed By: #### L [id number], [id number], [id number] ####Utility Inspector: UNA ARCE ([id number])[facility]LU[facility] ([facility])[address] THYROID STIMULATING HORMONEo n 04-05-2025 THYROID STIMULATING HORMONE 10.19 uIU/mL High 0.35-4.94 [facility] Comment on above: Performed By: #### L AB67, LAB15, [id number], LAB20, LAB69, [id number], [id number], LAB89 ####Utility Inspector: UNA ARCE ([id number])[facility] [place]LU[facility] ([facility])[address] VITAMIN B12on 04-05-2025 Cobalamin (Vitamin B12) [Mass/Vol] 817 pg/mL High 213-816 [facility] Comment on above: Performed By: #### L AB67, LAB15, OPH355, LAB20, LAB69, [id number], [id number], LAB89 ####Utility Inspector: UNA ARCE ([id number])LYNETTE ESCOTO (SB[facility]AB)[address] Vital Signs Date Time Vital Sign Value Performing Clinician Annalisai gerson 07-19-2025 19:12-0500 Diastolic blood pressure 78 mm[Hg] Josefina Rose MD Work Phone: [facility] [employer] 07-19-2025 19:12-0500 Heart rate 75 /min Josefina Rose MD Work Phone: [facility] [employer] 07-19-2025 19:12-0500 Respiratory rate 17 /min Josefina Rose MD Work Phone: [facility] [employer] 07-19-2025 19:12-0500 SaO2% (BldA) [Mass fraction] 100 % Josefina Rose MD Work Phone: [facility] [employer] 07-19-2025 19:12-0500 Systolic blood pressure 117 mm[Hg] Josefina Rose MD Work Phone: [facility] [employer] 07-19-2025 17:02-0500 Body temperature 98.1 [degF] Josefina Rose MD Work Phone: [facility] [employer] 06-22-2025 02:11-0400 Diastolic blood pressure 57 mm[Hg] [facility] 02:11-0400 Heart rate 54 /min Sagar Gombash DO Work Phone: [employer] 06-22-2025 02:11-0400 Respiratory rate 18 /min Sagar Gombash DO Work Phone: [facility] [employer] 06-22-2025 02:11-0400 SaO2% (BldA) [Mass fraction] 97 % Sagar Gombash DO Work Phone: [employer] 06-22-2025 02:11-0400 Systolic blood pressure 105 mm[Hg] Sagar Gombash DO Work Phone: [facility] [employer] 06-22-2025 00:31-0400 Body temperature 98.2 [degF] Sagar Gombash DO Work Phone: [facility] [employer] 06-17-2025 10:47-0400 SaO2% (BldA) [Mass fraction] 95 % Eber Hess MD Work Phone: [facility] [employer] 06-17-2025 10:27-0400 Body height 174 cm Eber Hess MD Work Phone: [facility] [employer] 06-17-2025 10:27-0400 Body mass index (BMI) [Ratio] 27.3 kg/m2 Eber Hess MD Work Phone: [facility] [employer] 06-17-2025 10:27-0400 Body weight 82.64 kg Eber Hess MD Work Phone: [facility] [employer] 06-17-2025 10:27-0400 Diastolic blood pressure 58 mm[Hg] Eber Hess MD Work Phone: [facility] [employer] 06-17-2025 10:27-0400 Heart rate 70 /min Eber Hess MD Work Phone: [facility] [employer] 06-17-2025 10:27-0400 Systolic blood pressure 110 mm[Hg] Eber Hess MD Work Phone: [facility] [employer] 05-03-2025 10:13-0400 Body height 174 cm Alejandro Jonnyynkary APR N - [employer] Work Phone: [facility] [employer] 05-03-2025 10:13-0400 Body mass index (BMI) [Ratio] 28.09 kg/m2 Alejandro Queen BATTERY RECHARGER - [employer] Work Phone: [facility] [employer] 05-03-2025 10:13-0400 Body weight 85.05 kg Alejandro Jonnyynick APR N - [employer] Work Phone: [facility] [employer] 05-03-2025 10:13-0400 Diastolic blood pressure 62 mm[Hg] Alejandro Jonnyynick BATTERY RECHARGER - [employer] Work Phone: [facility] [employer] 05-03-2025 10:13-0400 Heart rate 66 /min Alejandro Jonnyynick APR N - [employer] Work Phone: [facility] [employer] 05-03-2025 10:13-0400 Systolic blood pressure 106 mm[Hg] Alejandro Queen BATTERY RECHARGER - [employer] Work Phone: [employer] 04-17-2025 08:40-0400 Diastolic blood pressure 50 mm[Hg] Rowena Aguilar DO Work Phone: [employer] 04-17-2025 08:40-0400 Heart rate 62 /min Rowena Eliasffey DO Work Phone: [employer] 04-17-2025 08:40-0400 Respiratory rate 17 /min Rowena Aguilar DO Work Phone: [employer] 04-17-2025 08:40-0400 SaO2% (BldA) [Mass fraction] 96 % Rowena Lintony DO Work Phone: [employer] 04-17-2025 08:40-0400 Systolic blood pressure 104 mm[Hg] Rowena Lintony DO Work Phone: [employer] 04-17-2025 05:00-0400 Body mass index (BMI) [Ratio] 31.14 kg/m2 Rowena Lintony DO Work Phone: [employer] 04-17-2025 05:00-0400 Body weight 92.9 kg Rowena Aguilar DO Work Phone: [employer] 04-17-2025 01:47-0400 Body temperature 97.2 [degF] Rowena Lintony DO Work Phone: [employer] 04-16-2025 16:41-0400 Body height 172.7 cm Rowena Lintony DO Work Phone: [employer] 04-13-2025 04:37-0400 SaO2% (BldA) [Mass fraction] 95.1 % Rowena Lintony DO Work Phone: [employer] 04-08-2025 21:01-0400 SaO2% (BldA) [Mass fraction] 97 % Rowena Lintony DO Work Phone: [employer] 04-08-2025 17:02-0400 SaO2% (BldA) [Mass fraction] 96.1 % Rowena Aguilar DO Work Phone: [facility] Encounters Encounter Date Encounter Type Care Provider Facility Start: 07-19-2025 End: 07-19-2025 Emergency department patient visit PCP NONE [facility] Comment on above: Symptomatic anemia ( Primary Dx) Start: 07-19-2025 ambulatory Ravi MENSAH Facili ty:[facility] Start: 07-07-2025 ambulatory Ravi Murray ty:[facility] Start: 07-06-2025 End: 07-07-2025 Telephone encounter Eber Hess MD Work Phone: [facility] Cardiology [employer] Start: 07-05-2025 ambulatory Ravi MENSAH Facili ty:[facility] Start: 06-28-2025 ambulatory Ravi MENSAH Facili ty:[facility] Start: 06-24-2025 End: 06-24-2025 Documentation procedure Yamilka Holloway BAT[employer]Y RECHARGER - [employer] Work Phone: [facility] [place] Start: 06-24-2025 End: 06-25-2025 Telephone encounter Eber Hess MD Work Phone: [facility] [employer] Comment on above: Release of Informati on (BMP, vitals, and medication notes ) Start: 06-24-2025 ambulatory Ravi MENSAH Facili ty:[facility] Start: 06-21-2025 End: 06-22-2025 Emergency department patient visit Sagar Gilliam DO Work Phone: [facility] Comment on above: Anemia due to chroni c kidney disease, unspecified CKD stage (Primary Dx) Start: 06-21-2025 [facility] Facility :[facility] Start: 06-17-2025 End: 06-17-2025 ambulatory [facility] Start: 06-17-2025 End: 06-17-2025 ambulatory [facility] Start: 06-17-2025 End: 06-17-2025 Office outpatient visit 40 minutes Eber Hess MD Work Phone: [facility]iology Jan Comment on above: Chronic systolic hea rt failure (HCC) (Primary Dx) Start: 05-06-2025 End: 05-12-2025 Home visit new pt unstabl/signif new prob 75 min Yamilkapradeep Holloway BATTERY RECHARGER - [employer] Work Phone: [facility] [place] Comment on above: Palliative care enco unter (Primary Dx); Pleural effusion; Acute on chronic heart failure, unspecified heart failure type (HCC); Debility Start: 05-03-2025 End: 05-03-2025 ambulatory ALEJANDRO QUEEN [facility] System [facility] Start: 05-03-2025 End: 05-03-2025 Office outpatient visit 25 minutes Alejandro Queen BATTERY RECHARGER - [employer] Work Phone: [facility] Cardiology - [place] [facility] Comment on above: Chronic systolic hea rt failure (HCC) (Primary Dx); Coronary artery disease involving [place] coronary artery of [place] heart without angina pectoris; Pleural effusion; Acute kidney injury superimposed on chronic kidney disease (HCC) (HCC); 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 chronic kidney disease (HCC); PAC (premature atrial contraction); Abnormal CAT scan Start: 04-19-2025 End: 04-19-2025 Orders Only Katie Engle RN [facility] Palliative [facility] [place] Comment on above: Acute congestive hea rt failure, unspecified heart failure type (HCC) (Primary Dx) Start: 04-05-2025 End: 04-17-2025 Evaluation and management of inpatient Rowena Aguilar Work Phone: [facility] Cardiac Progressive Care Unit PCU 2E Start: 11-07-2020 End: 11-07-2020 Discharged Recurring [facility]-Immunizations Procedures Date Procedure Procedure Detail Performing Clinician Start: 07-19-2025 Blood typing serologic abo Josefina Rose MD Work Phone: Start: 07-19-2025 End: 07-19-2025 TRANSFUSE RED BLOOD CELLS Josefina Rose MD Work Phone: Start: 07-19-2025 Antibody screen ALEJANDRO QUEEN Comment on above: Performed By: #### L [id number] ####Utility Inspector: UNA NAVARRO ([id number])[facility] BLOOD [facility] ([facility])[address] Start: 07-19-2025 Blood count complete auto&auto [...] on above: Performed By: #### L [id number] ####Utility Inspector: UNA NAVARRO ([id number])[facility] BLOOD [facility] ([facility])[address] Start: 06-21-2025 Basic metabolic pane l [...] Phone: Start: 04-15-2025 BEDSIDE SPIROMETRY Lizeth Farmer BAT[employer]Y RECHARGER - [employer] Work Phone: Start: 04-15-2025 Blood occult peroxid ase actv qual feces 1-3 spec Albaro Hernández MD Work Phone: Start: 04-15-2025 Radiologic exam ches t single view Yesi Farmer BAT[employer] RE[employer]GER - [employer] Work Phone: Start: 04-15-2025 Comprehensive metabo lic panel Precious Lewis MD Work Phone: Start: 04-15-2025 Manual Differential panel - Blood Precious Lewis MD Work Phone: Start: 04-14-2025 OXYGEN THERAPY Precious dawn MD Work Phone: Start: 04-14-2025 Thoracentesis needle /cath pleura w/imaging Yesi Farmer [employer] RE[employer]GER - [employer] Work Phone: Start: 04-14-2025 Comprehensive metabo lic panel Precious Lewsi MD Work Phone: Start: 04-14-2025 Manual Differential panel - Blood Precious Lewis MD Work Phone: Start: 04-13-2025 OXYGEN THERAPY Precious dawn MD Work Phone: Start: 04-13-2025 Radiologic exam ches t single view Marian Casarez BATTERY RECHARGER - [employer] Work Phone: Start: 04-13-2025 Ecg routine ecg w/le ast 12 lds trcg only w/o i&r Marian Hawkinsmark BATTERY RECHARGER - [facility] Work Phone: Start: 04-13-2025 Blood gases any comb ination ph pco2 po2 co2 hco3 Yesi Farmer BATTERY RECHARGER [facility] Work Phone: Start: 04-13-2025 Comprehensive [...] exam ches t single view Alejandro Queen BATTERY RECHARGER [facility] Work Phone: Start: 04-11-2025 OXYGEN THERAPY [...] Work Phone: Start: 04-09-2025 OXYGEN THERAPY Precious adwn MD Work Phone: Start: 04-09-2025 Radiologic exam [...] on above: Performed By: #### L [id number] ####Utility Inspector: UNA NAVARRO ([id number])[facility] BLOOD [facility] ([facility])[address] Start: 04-05-2025 ABO and Rh group [...] Activity Detail Author Start: 04-05-2030 Lipid panel [employer] Start: 06-21-2026 Creatinine measurement Creatinine Level [facility] [employer] Start: 06-21-2026 Potassium measurement Potassium Level [employer] Start: 06-17-2026 Creatinine measurement Creatinine Level [facility] [employer] Start: 06-17-2026 Potassium measurement Potassium Level [facility] [employer] Start: 04-17-2026 Creatinine measurement [facility] [employer] Start: 04-17-2026 Potassium measurement [facility] [employer] Start: 04-06-2026 Echocardiography Echocardiogram [facility] [employer] Start: 04-06-2026 [facility] [employer] Start: 11-03-2025 Depression Monitoring Depression Monitoring [facility] [employer] Start: 09-13-2025 End: 09-13-2025 Patient encounter procedure 09/13/2025 10:40 AM EST Office Visit [facility] - [address] [place] [phone] Eber Hess MD [address] [place] [address] [facility] - [place] Start: 06-17-2025 End: 06-17-2025 Patient encounter procedure 06/17/2025 10:20 AM EDT Office Visit [facility] - [place] [address] [place] [address] [place] [phone] Eber Hess MD [address] [place] [address] [facility] - Jan Start: 05-18-2025 End: 05-18-2025 ambulatory [facility] Start: 05-18-2025 End: 05-18-2025 Patient encounter procedure 05/18/2025 9:15 AM EDT Office Visit [facility] [address] [place] [address] Nelson Garcia MD [address] [facility] [address] [place] [address] [facility] Start: 05-10-2025 COVID-19 Vaccine ( season) COVID-19 Vaccine ( season) [facility] Start: 05-10-2025 Influenza vaccination Influenza Vaccine (#1) [facility] Start: 05-10-2025 [facility] Start: 04-22-2025 End: 04-22-2025 ambulatory [facility] - [place] Start: 04-22-2025 End: 04-22-2025 Patient encounter procedure 04/22/2025 10:00 AM EDT Office Visit [facility] [place] [address] [place] [phone] Marian Casarez APRN - [place] [address] [address] [facility] [place] Start: 05-10-2024 COVID-19 Vaccine ( season) COVID-19 Vaccine ( season) [facility] Start: 05-10-2024 [facility] Start: 2011 RSV Immunization for Adults (1 - 1-dose 75+ series) RSV Immunization for Adults (1 - 1-dose 75+ series) [facility] Start: 2011 [facility] Start: 1986 Zoster Vaccines (1 of 2) Zoster Vaccines (1 of 2) [facility] Start: 1986 [facility] Start: 1955 DTaP/Tdap/Td Vaccines (1 - Tdap) DTaP/Tdap/Td Vaccines (1 - Tdap) [facility] Start: 1955 Pneumococcal Vaccine: 50+ Years (1 of 2 - PCV) Pneumococcal Vaccine: 50+ Years (1 of 2 - PCV) [facility] Start: 1955 [facility] Start: 1948 Depression Monitoring Depression Monitoring [facility] Start: 1948 [facility] Start: 1936 Medicare Annual Wellness (AWV) Medicare Annual Wellness (AWV) [facility] Start: 1935 [facility] Bedside spirometry [facility] Work Phone: End: 04-05-2025 Hemoglobin [Mass/volume] in Blood [facility] Work Phone: End: 04-05-2025 Hemoglobin.gastrointestina l.lower [Presence] in Stool by Immunoassay --1st specimen [facility] Work Phone: Immunizations Immunization Date Immunization Notes Care Provider Fa cility 12-05-2020 Covid (Moderna) [facility] Work Phone: 11-07-2020 Covid (Modern) [facility] Work Phone: 06-30-2020 influenza virus vaccine, unspecified formulation Katie Engle RN [facility] [employer] Payers Date Payer Category Payer Self-pay [id number] 2017 [employer] Manuel Vargas Managed Care - [facility] [id number] 2017 Medicare supplementa l policy (as second payer) [id number] 2017 Unknown [id number] 2001 Medicare [id number] 2001 Medicare [id number] Unknown [id number] Unknown [id number] Unknown [id number] Unknown [id number] Unknown [id number] Unknown [id number] Social History Date Type Detail Facility Tobacco smoking stat us NHIS Unknown if ever smoked [facility] Work Phone: Start: 1935 Sex Assigned At Male [facility] Work Phone: Start: 04-08-2025 End: 05-03-2025 Tobacco smoking status NHIS Never smoked tobacco [facility] Start: 04-08-2025 End: 05-03-2025 History of Social function [facility] Start: 04-08-2025 End: 05-03-2025 [facility] Anthillzities [facility] Has the [employer], [employer], or water [employer] threatened to shut off services in your home in past 12Mo No [facility] How often to you hav e a drink containing alcohol? Never [facility] How many standard drinks containing alcohol do you have on a typical day? [facility] (I/We) worried landon er (my/our) food would run out before (I/we) got money to buy more. Never true [facility] Start: 1935 Sex assigned at [facility] Start: 04-05-2025 Sex Male (finding) [facility] Start: 05-03-2025 End: 06-15-2025 Tobacco use and exposure Smokeless tobacco non-user [facility] Start: 06-15-2025 [facility] History of tobacco use Current smoker [facility] History of tobacco use Cigarette Smoker [facility] Start: 06-17-2025 Alcoholic beverage intake Ex-drinker (finding) [facility] Goals Date Patient Goal Desired Activity /State Functional Status Date Assessment Result Facility 07-19-2025 Total score [AUDIT-C] 0 07/19/20 10:59 AM Luci Mendez RN [facility] 05-03-2025 Patient Health Quest ionnaire 2 item (PHQ-2) [Reported] [facility] Clinical Notes 04-05-2025 to 07-19-2025 May [...] noted. VS stable. Resp even, non labored. [facility] 07-19-2025 Emergency department Note [facility] arrived to transport pt to home facility . Pt transferred to stretcher without difficulty. Pt A&O, calm, and cooperative, no signs of distress noted. VS stable. Resp even, non labored. Report given to [facility]. Marleni Post H&H not needed per Dr. Rose. Ok to dc 30 mins after unit is complete. Meal order placed This RN sat bedside for the first 15 mins of blood transfusion. Pt denied c/o any transfusion reaction symptoms. Pt's vitals rechecked before leaving the room. [facility] ED EMERGENCY DEPARTMENT ENCOUNTER Pt [...] 7.1 on 06/15/2025 patient is in a residential. Patient is wheelchair-bound. HPI Historian is the [...] AND HEMATOCRIT, BLOOD PREPARE RBC PRODUCT CODE [id number] Unit Number [id number] Unit ABO A Unit RH NEG Crossmatch interpretation COMP Dispense Status Transfused Blood Expiration Date [id number] Product Blood Type 0600 Unit Volume 300 [...] determinants of health affecting care: Lives in residential Shared decision making: Patient agrees to treatment plan ED Medications managed: Medications sodium chloride 0.9 % infusion (has no administration in time range) Prescription drugs prescribed: PROCEDURES: Unless otherwise noted below, none Procedures IMPRESSION 1. Symptomatic anemia DISPOSITION/PLAN DISPOSITION Discharge 07/19/2025 01:51:41 PM PATIENT REFERRED TO: Ravi Kirk DO [address] [place] [address] [place] [address] In 1 week DISCHARGE MEDICATIONS: New Prescriptions No medications on file @[facility]([id number]:LAST:1)@ (Comment: Please notethis report has been produced [...] MD 07/19/25 1352 documented in this encounter [facility] 07-19-2025 Emergency department Note [facility] 07-19-2025 Emergency department Note Post H&H not needed per Dr. Rose. Ok to dc 30 mins after unit is complete. [facility] 07-19-2025 Emergency department Note Meal order placed [facility] 07-19-2025 Emergency department Note This RN sat bedside for the first 15 mins of blood transfusion. Pt denied c/o any transfusion reaction symptoms. Pt's vitals rechecked before leaving the room. [facility] 07-19-2025 Hospital Discharg e instructions Josefina Rose MD - 07/19/2025 1:52 PM EST Continue all current medications. Would recommend that you get a repeat CBC within 5 to 7 days. This can be done by your primary care physician. The following attachments cannot be sent through Care Everywhere.Normocytic Normochromic Anemia Discharge Instructions (Surinamese)documented in this encounter [facility] 07-19-2025 Physician Emergency department Note [facility] ED EMERGENCY DEPARTMENT ENCOUNTER Pt [...] 7.1 on 06/15/2025 patient is in a residential. Patient is wheelchair-bound. HPI Historian is the [...] AND HEMATOCRIT, BLOOD PREPARE RBC PRODUCT CODE [id number] Unit Number [id number] Unit ABO A Unit RH NEG Crossmatch interpretation COMP Dispense Status Transfused Blood Expiration Date [id number] Product Blood Type 0600 Unit Volume 300 [...] determinants of health affecting care: Lives in residential Shared decision making: Patient agrees to treatment plan ED Medications managed: Medications sodium chloride 0.9 % infusion (has no administration in time range) Prescription drugs prescribed: PROCEDURES: Unless otherwise noted below, none Procedures IMPRESSION 1. Symptomatic anemia DISPOSITION/PLAN DISPOSITION Discharge 07/19/2025 01:51:41 PM PATIENT REFERRED TO: Ravi Kirk DO [address] [place] [address] In 1 week DISCHARGE MEDICATIONS: New Prescriptions No medications on file @[facility]([id number]:LAST:1)@ (Comment: Please notethis report has been produced [...] Year: No Josefina Rose MD 07/19/25 1352 [facility] 07-07-2025 Telephone encounter Note Darby called back to verify the diuretic instructions; she had the Lasix written down, so I verified that it was actually torsemide. She verbalized understanding and was thankful for the call. [facility] 07-07-2025 Miscellaneous Notes Darby called back to verify the diuretic instructions; she had the Lasix written down, so I verified that it was actually torsemide. She verbalized understanding and was thankful for the call. Per Dr Hess Ok to take etc 20 mg torsemide if weight gain, leg swelling or sob. Anemia - recommend followup with PCP and GI I called and spoke to nurse Khushboo [...] of 121. HR's 60-70's. Note from nursing: [facility] faxed 07/05/25 BMP, and CBC, and [...] is feeling fine. documented in this encounter [facility] 07-07-2025 Telephone encounter Note Per Dr Hess Ok to take etc 20 mg torsemide if weight gain, leg swelling or sob. Anemia - recommend followup with PCP and GI I called and spoke to nurse Khushboo from [facility]-she took verbal order for torsemide and notes they are continuing to follow his anemia with hemograms; is occult stool was negative. She was thankful for the call back. [facility] 07-06-2025 Telephone encounter Note Images from the original note were not included. Cr 1.9, K+ 3.7, hemoglobin 7.1 on 07/05/25. BP's mostly 100-110's/50/60's; one SBP outlier of 94, one outlier of 121. HR's 60-70's. Note from nursing: [facility] 07-06-2025 Telephone encounter Note [facility] faxed 07/05/25 BMP, and CBC, and vitals. Records to be scanned to chart. [facility] 07-06-2025 Telephone encounter Note Sharita from [facility] called o report weight gain. 07/03: #189, 07/04: #191, 07/06: #191.4, and today #191.6. He had labs recently and HG is 7.1. She is faxing his recent vitals and labs. We scheduled follow up with 09/13/25. Otherwise he is feeling fine. [facility] 06-24-2025 History of Presen t illness Narrative Attempted to meet with pt. He no longer resides here. Facility uncertain where he has moved to. Message left on primary contacts number Bereket to return call to the palliative group at [phone] documented in this encounter [facility] 06-24-2025 Telephone encounter Note Per Dr Hess: Would stop aldactone all together due to Cr 1.8 and low normal BP. Also stop hydralazine and see how bp is I called and spoke to the nurseKylah at [facility] relaying [...] likely give him an additional torsemide today. [facility] 06-24-[address] Hess: Would stop aldactone all together due to Cr 1.8 and low normal BP. Also stop hydralazine and see how bp is I called and spoke to the nurseKylah at [facility] relaying [...] was 2.05 on 06/17/25. FYI: Went to [facility] ER on 06/21/25 for blood transfusion as HGB at facility was 6.9 when they checked it 06/21/25. Labs from [facility] Today: 06/24/25 BMP, blood pressure, pulse summary, and medication notes faxed from [facility]. Records scanned to Media. documented in this encounter [facility] 06-24-2025 Telephone encounter Note Images from the [...] was 2.05 on 06/17/25. FYI: Went to [facility] ER on 06/21/25 for blood transfusion as HGB at facility was 6.9 when they checked it 06/21/25. Labs from [facility] Today: [facility] 06-24-2025 Telephone encounter Note 06/24/25 BMP, blood pressure, pulse summary, and medication notes faxed from [facility]. Records scanned to Media. [facility] 06-21-2025 Emergency department Note This RN at bedside for first 15 minutes of blood transfusion. Pt tolerating transfusion. VS updated in system. [facility] 06-21-2025 Emergency department Note This RN at bedside for first 15 minutes of blood transfusion. Pt tolerating transfusion. VS updated in system. Emergency Department Encounter [facility] ED Patient: Mary Charles : [...] to contact the dictating provider for clarification.) DO HUYEN Pitts [employer] Sagar Gilliam DO 06/21/252 Patient arrives via EMS from [facility] following bloodwork that showed low hemoglobin. No overt signs of bleeding on arrival. Patient A&O4. Patient does endorse previous blood transfusions. documented in this encounter [facility] 06-21-2025 Emergency department Triage note Patient arrives via EMS from [facility] following bloodwork that showed low hemoglobin. No overt signs of bleeding on arrival. Patient A&O4. Patient does endorse previous blood transfusions. [facility] 06-21-2025 Physician Emergency department Note Emergency Department Encounter [facility] ED Patient: Mary Charles : [...] the emergency department lab work today from [facility] showed hemoglobin of 6.8. Patient is [...] [employer] Sagar Gilliam DO 06/21/252211 [facility] [employer] Work Phone: 06-17-2025 History of Presen t illness Narrative [facility] Cardiology [facility] CARDIOLOGY - [address] [facility] [address] Dept: [phone] Dept Visit type: Established : 1935 Chief Complaint: Chief Complaint Patient presents with Follow-up 6 Week History of Present Illness: Mary Charles is a 89 y.o. male with HFrEF, Coronary artery disease who is here for followup. Prior events : He presented to [facility] 03/2025 with progressive shortness of [...] tablet, Rfl: 1 documented in this encounter [facility] 05-06-2025 History of Presen t illness Narrative Images from the original note were not included. [facility] Palliative Care Site of Care: [facility] Chief Complaint: Mary Charles is a [...] hospice conversation today Debility Pt now at [facility] Working with PT/OT Palliative encounter [...] little over a year ago in the [facility] hospital setting. He reports he had not [...] Falls: No Current Interventions: PT, OT, and care home Current Assistive Devices: walker and wheelchair ROS: See palliative care ROS/ESAS below; All other systems were reviewed and are negative. 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 [facility] CARDIOLOGY - [address] [place] [phone] Dept: [phone] Dept Visit type: Established : 1935 Reason [...] of EF 2. Coronary artery disease involving [place] coronary artery of [place] heart without angina pectoris Assessment & Plan: [...] weeks (around 06/14/2025). Wants to establish in [place]. Subjective No prior history as he has not been to a doctor for many years He presented to [facility] 03/2025 with progressive shortness of [...] history on file. documented in this encounter [facility] 05-03-2025 Evaluation + Plan note Associated Problem(s): Abnormal CAT scan CT abdomen with mural thickening involving the cecum and terminal ileum concern for neoplasm versus inflammation. Seen by GI with plan for EGD and colonoscopy once stable. -GI follow-up [facility] 05-03-2025 Miscellaneous Notes Associated Problem(s): Abnormal CAT [...] Hgb 8.2 per labs 04/26/[address] [facility]. -No aspirin due to anemia - [...] today Associated Problem(s): Coronary artery disease involving [place] coronary artery of [place] heart without angina pectoris Suspected CAD causing [...] re-evaluation of EF documented in this encounter [facility] 05-03-2025 Evaluation + Plan note Associated Problem(s): PAC (premature atrial contraction) Noted to have irregular heart rhythm during hospitalization and multiple EKGs show sinus rhythm with frequent PACs. -Continue Toprol 25 mg p.o. daily [facility] 05-03-2025 Evaluation + Plan note Associated Problem(s): [...] Hgb 8.2 per labs 04/26/[address] [facility]. -No aspirin due to anemia - continue to monitor [facility] 05-03-2025 Evaluation + Plan note Associated Problem(s): Acute kidney injury superimposed on chronic kidney disease (HCC) (HCC) Creatinine 1.46 on admission. Peak creatinine 1.78. Most recent creatinine 1.8 per labs 04/26/2025 - Continue to monitor - may have to accept a higher creatinine to keep him out of HF [facility] 05-03-2025 Evaluation + Plan note Associated Problem(s): Pleural effusion Bedside thoracentesis 04/09/2025 with 1 L removed from the left and 600 mL removed from the right. Repeat left thoracentesis 04/14/2025 with 600 mL removed. - continue to monitor, appears euvolemic today [facility] [employer] 05-03-2025 Evaluation + Plan note Associated Problem(s): Coronary artery disease involving [place] coronary artery of [place] heart without angina pectoris Suspected CAD causing HFrEF. NO angina. - no ASA 2/2 anemia - continue Toprol 25 mg po daily - continue atorvastatin 20 mg po daily - not a candidate or invasive workup due to anemia, advanced age and frailty [facility] 05-03-2025 Evaluation + Plan note Associated Problem(s): [...] in 3 months for re-evaluation of EF Electronically signed by Aljeandro Queen, BATTERY RECHARGER - SOCIAL WORK[employer] at 05/03/2025 11:05 AM EDT [facility] 04-19-2025 History of Presen t illness Narrative Pt was followed by the Palliative Care Team during hospitalization at [facility]. Provider is recommending continued Palliative follow up in the community. Referral made referral to [facility] Palliative Care SNF team. documented in this encounter [facility] 04-17-2025 Nurse Note Report given to Flor MYERS at [facility]. All belongings sent with patient, including eyewear. HL removed, site WNL. RN contacted RN ENTEROSTOMAL Marlen[place] concerning attempt to wean patient to [...] bed very aggressively. 2 RN , 2 acute care certified nursing assistant were at bedside trying to calm him [...] within normal limits. documented in this encounter [facility] 04-17-2025 Miscellaneous Notes Patient Choice Patient Name: MARY CHARLES Date of : 1935 Share Number: 0 Method of Sharing: electronic Date of Sharin2025-04-08 13:13:49.000 Responding Recipient: [email or web address] Ranked Providers Sent Referral Rank: 2 Name: Monika Montoya [facility] Phone: [phone] Address: [address] [place] [address] Rank: 3 Name: [facility], YES.TAP. Phone: [phone] Address: [address] [place] [address] Rank: 1 Name: Jan FUENTES Member Phone: [phone] Address: [address] [place] [address] All Providers Sent Referral Name: Monika LOZOYA Phone: [phone] Address: [place] [address] Name: [employer] Phone: [phone] Address: [address] [place] [address] Name: Jan Dos Santos [employer] Member Phone: [phone] Address: [address] [id number] Care Management Progress Note Short Medical why still here: Pending placement. Planned Discharge Disposition: [facility] ([facility]) Barriers/Today we still Wait: Clinical stability [...] Requested cot transport for 1230 via [facility]. [facility] accepted for 1230. Notified bedside RN of transport time and number to call report. Notified facility of transport time and [facility] Spoke with daughter Anahy Charles at [phone] regarding transportation plan. Confirmed pickup time is 1230. Discussed patient may have a co-pay for ambulance depending on their individual insurance coverage. Advised daughter Anahy to call number on back of insurance card with questions or concerns. Tasked weekend TTC to follow for possible dc over the weekend. 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 7000 Complete in HENS for SNF [facility] per TCC request [...] at this time. Planned Discharge Disposition: [facility] -Notified facility of pt going to there facility under skilled therapy at this time. -Pt wanted a facility where palliative/hospice can follow if he changes his mind. Informed facility of pt's wishes. Pt can transition to hospice services at that facility if he chooses. -Tasked BUSINESS SOLUTIONS ANALYST to complete and upload into [employer]. Barriers/Today we still Wait: Clinical stability, Symptomatic control, Post-discharge arrangement completion (facility made aware of skilled services and needing the BiPap) Length of Stay (Days): 11 GMLOS: 3.9 -Spoke with daughter Anayh over the phone -Discussed discharge planning -There is no HCPOA at this time. If pt is unable to make decisions, Anahy and her brother will step in to assist with decisions. -IF after the palliative meeting tomorrow, hospice is pursued, pt will still need placement at a facility. -construction operations manager to follow and assist as needed. [...] family later on Saturday. Planned Discharge Disposition: [facility] Facility vs hospice Barriers/Today we still Wait: Receiving IV medication, clinical stability, Post-discharge arrangement completion (SNF vs hospice) construction operations manager to follow and assist as needed. Length of Stay (Days): 9 GMLOS: 3.9 Family Communication Number Called: [phone] Name of Designated Family Host/Hostess: Anahy Charles Relationship to patient: Daughter Outcome: I spoke with the individual listed above Family Host/Hostess Updated on the Following: --provided medical update. [...] family on Saturday. Signed, Bela Agustin APRN, [place], [facility] Palliative Care/Hospice PGR [phone] Care Management Progress Note Short Medical why still here: did send bipap settings to [facility] and requested for them to obtain bipap unit for patient to utilize at their facility. Currently requiring oxygen at 1 liter. Anticipate probable dc tomorrow. Will need 7000 and transport arranged. Planned Discharge Disposition: [facility] Facility Barriers/Today we still Wait: Administering IV medications, Clinical stability, Facility pre-cert Length of Stay (Days): 8 GMLOS: 3.9 . Referral placed to SNF- [facility] via Careport per TCC request. Await review and response regarding ability to accept. TCC notified. Care Management Progress Note Short Medical why still here: reviewed chart. Dgt has selected SNF choices virtually - 1. [facility] 2. [facility] 3. [facility]. Tasked BUSINESS SOLUTIONS ANALYST to create these referrals - will follow. Planned Discharge Disposition: [facility] Facility Barriers/Today we still Wait: Administering IV medications, Clinical stability, Facility pre-cert Length of Stay (Days): 7 GMLOS: 3.9 Called and spoke with deya Higginbotham of patient, and provided DC planning updates. [facility] - Jan wills willing to accept. Updates sent to facility. ICU Transfer Checklist Transfer Med Reconciliation (resume home meds if able, convert to PO if able) Complete Antibiotics (name, indication, duration, convert to PO if able) None Steroid (indication, duration, convert to PO if able) None Anticipated Munden Medications (ICU initiated) or Dose Changes and Indication No Permanently Discontinued Home Medications and Reason for medication contraindication No García Catheter (please remove if able. Note: place DC order) No Central Line (please remove if able. Note: place DC order) No Transfer Discussed with: Dr. Regan with [facility] If additional questions for ICU team within 24 hours of ICU transfer, page [phone] for clarifications. Will assume care as patient is being transferred out of ICU. D/w Dr Lewis via secure chat Images from the original note were not included. [facility] Palliative Care Transitions of Care Note [...] care of himself. -Consider medication for mood? -Multifocal Lens Assembler support requested. -Monitor. Hx CKD III -CrCl [...] NAME: TBD, referrals have been sent to [facility], [facility] and [facility]. Follow up [...] care and cardiology following. Planned Discharge Disposition: [facility] Facility Barriers/Today we still Wait: Clinical stability, Tie Fastener recommendations (comment), Diagnostic workup, Administering IV medications, [...] need if SNF is recommended by PT. 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 Length of Stay (Days): 1 GMLOS: No GMLOS Documented documented in this encounter [facility] 04-17-2025 Note [facility] 04-17-2025 Hospital course Narrative Discharge Summary Mary [...] Your Medications These medications were sent to [facility] [address] [facility] [address] Hours: Saturday to Saturday 10 am to 6 pm atorvastatin 20 MG tablet hydrALAZINE 10 MG tablet metoprolol succinate XL 25 MG 24 hr tablet senna-docusate sodium 8.6-50 MG tablet spironolactone 25 MG tablet Torsemide 40 MG tablet DIET: Adult diet Regular; No Added Salt (3-4 gm) ACTIVITY: No restriction. COMPLEXITY OF FOLLOW UP: [x] Moderate Complexity: follow up within 7-14 calendar days (40906) [] Severe Complexity: follow up within 7 calendar days (72687) FOLLOW UP TESTING, PENDING RESULTS OR REFERRALS AT TRANSITIONAL CARE VISIT: [x] Yes [] No PENDING STUDIES: DISPOSITION: Skilled Facility FACILITY/HOME CARE AGENCY NAME: Follow up with Nelson Garcia MD [address] [facility] [address] Go on 05/18/2025 Pulmonary hospital follow-up at 9:15 AM Marian Casarez APRN - [facility] [address] [place] [id number] Follow up on 04/22/2025 Cardiology follow-up at 10:00 AM. [facility] [place] [address] [facility] [id number] Follow up in 1 month(s) on INSTRUCTIONS [...] 04/17/2025, 10:12 AM documented in this encounter [facility] 04-17-2025 History of Presen t illness Narrative [facility] [place] [facility] Cardiology /Electrophysiology Progress Note HPI / Interval [...] follow-up 04/22/2025 at 10 AM at the [facility] office with myself, Marian Casarez [...] results found for: TROPDELTSEC Recent Labs 04/15/25 0212 04/16/25 0339 04/17/25 0440 NA 139 140 138 K 3.5 3.6 3.6 CL 90* 87* 88* CO2 40* 43* 40* BUN 43* 46* 46* CREATININE 1.58* 1.81* 1.67* Recent Labs 04/15/252 04/16/25 0339 04/17/25 0440 WBC 12.4* 13.1* 12.0* [...] Daily torsemide, 40 mg, Oral, Daily [2] [facility] Respiratory Care Department Progress Note Comment [...] care of himself. -Consider medication for mood? -Multifocal Lens Assembler support requested. -Monitor. Hx CKD III -CrCl [...] detailed in the note above. Bela Agustin, BATTERY RECHARGER - [facility] Palliative Care Assessments: Goals of care: Continue [...] other systems were reviewed and are negative. [place] Symptom Assessment Score [place] Score Pain Score (if non-verbal, add .FLACC [...] On: Kcal/kg Weight Used for Energy Requirements: Lewis Weight for Energy Calculation (kg): 70 kg Total Energy Requirements (kcals/day): 9834-9701 (25-30) Weight Used for Protein Requirements: Lewis Weight in Kg Used for Protein Requirements: [...] Body Weight: (none on file to review) Lewis Body Weight (lbs) (Calculated): 154 lbs Lewis Body Weight (Kg) (Calculated): 70 kg % Lewis Body Weight (Calculated): 129.9 % BMI (kg/m2) [...] Continue current diet Kristin Duffy RD Contact: *[phone] or via Secure Chat Images from the original note were not included. OCCUPATIONAL THERAPY [facility] Treatment Note Name/MRN: Mary Charles ([id number]) Date of : 1935 Age: 89 y.o. Room/Bed: [facility] B Visit #: 4 out of 7 Discharge Recommendation: [facility] Facility Equipment Needed: No Assessment Pt tolerated [...] PLT [phone] BMP: Recent Labs 04/14/2545604/15/25 0212 04/16/25 0339 NA 140 139 140 [...] ANAHY CHARLES Mobile Relation: Daughter Preferred language: Surinamese Call Center Representative needed? No Albaro Hernández MD Division of Hospitalist Medicine [facility] [1] History reviewed. No pertinent past medical [...] from the original note were not included. [facility], Pulmonary Medicine [address] [place] [address] Patient - Mary Charles, Age - 89 y.o. - 1935 Room Number - B2-268/B2-268 B Consulting - Albaro Hernández MD Primary Care Physician - No primary care provider on file. [phone] Date of Admission - 04/05/2025 3:55 PM [...] 7 days Lab Units 04/16/25 03304/15/2521104/14/25 0457 SODIUM mmol/L 140 139 140 POTASSIUM [...] heart failure, unspecified heart failure type (HCC) [facility] [place] [facility] Cardiology /Electrophysiology Progress Note HPI / Interval [...] found for: TROPDELTSEC Recent Labs 04/14/25 0457 04/15/252 04/16/25 0339 NA 140 139 140 K 3.8 3.5 3.6 CL 92* 90* 87* CO2 39* 40* 43* BUN 39* 43* 46* CREATININE 1.43* 1.58* 1.81* Recent Labs 04/14/2545604/15/252 04/16/25 0339 WBC 12.3* 12.4* 13.1* HGB [...] Daily torsemide, 40 mg, Oral, Daily [2] [facility] Respiratory Care Department Progress Note Comment [...] Respiratory in the care of this patient, [facility] [place] [facility] Cardiology /Electrophysiology Progress Note HPI / Interval [...] from the original note were not included. [facility], Pulmonary Medicine [address] [place] [address] Patient - Mary Charles, Age - 89 y.o. - 1935 Room Number - B2-268/B2-268 B Consulting - Albaro Hernández MD Primary Care Physician - No primary care provider on file. [phone] Date of Admission - 04/05/2025 3:55 PM [...] LABS: CBC: Recent Labs 04/13/25 0214 04/13/25 0424 04/14/25 0457 04/15/25 0212 WBC 12.7* -- 12.3* 12.4* RBC 3.36* [...] ANAHY CHARLES Mobile Relation: Daughter Preferred language: Surinamese Call Center Representative needed? No Albaro Hernández MD Division of [...] ON 04/16/2025] polyethylene glycol (PEG) 3350 [4] [facility] Respiratory Care Department Progress Note Comment [...] Respiratory in the care of this patient, [facility] [place] [facility] Cardiology /Electrophysiology Progress Note HPI / Interval [...] No results found for: TROPDELTSEC Recent Labs 04/12/25 0325 04/13/25 0214 04/14/25 0457 NA 139 139 140 K 3.7 3.4* 3.8 CL 95* 93* 92* CO2 37* 36* 39* BUN 40* 37* 39* CREATININE 1.53* 1.46* 1.43* Recent Labs 04/12/25 0325 04/13/25 0214 04/13/25 [...] original note were not included. OCCUPATIONAL THERAPY [facility] Name/MRN: Mary Charles ([id number]) Date: 04/14/2025 Attempted to see pt for OT tx. Pt reported being very fatigued after getting cleaned up and working with PT this AM. Unable to encourage participation in OT tx at this time. Marleni Victor OT Images from the original note were not included. PHYSICAL THERAPY [facility] Treatment Note Name/MRN: Mary Charles ([id number]) Date of : 1935 Age: 89 y.o. Room/Bed: [facility] B Visit #: 4 out of 5 Discharge Recommendation: [facility] Facility Equipment Needed: No Assessment Patient supine [...] ANAHY CHARLES Mobile Relation: Daughter Preferred language: Surinamese Call Center Representative needed? No Albaro Hernández MD Division of [...] from the original note were not included. [facility], Pulmonary Medicine [address] [place] [address] Patient - Mary Charles, Age - 89 y.o. - 1935 Room Number - B2-268/B2-268 B Consulting - Albaro Hernández MD Primary Care Physician - No primary care provider on file. [phone] Date of Admission - 04/05/2025 3:55 PM [...] at home. I spoke with Breana from [employer]. Likely will need to have bedside spirometry [...] On: Kcal/kg Weight Used for Energy Requirements: Lewis Weight for Energy Calculation (kg): 70 kg Total Energy Requirements (kcals/day): 2691-8261 (25-30) Weight Used for Protein Requirements: Lewis Weight in Kg Used for Protein Requirements: 70 kg Estimated Total Protein (g/day): 56-84 (.8-1.2) Estimated Daily Total Fluid (ml/day): per MD Nutrition Related Findings: trace bilateral lower extremity edema per Pulmonology. abdomen soft, bm 8/. k+ 3.4, cl 93, c02 36, bun [...] Body Weight: (none on file to review) Lewis Body Weight (lbs) (Calculated): 154 lbs Lewis Body Weight (Kg) (Calculated): 70 kg % Lewis Body Weight (Calculated): 136.1 % BMI (kg/m2) [...] Oral Nutrition Supplement Kristin Duffy RD Contact: *[phone] or via Secure Chat Images from the original note were not included. OCCUPATIONAL THERAPY [facility] Treatment Note Name/MRN: Mary Charles ([id number]) Date of : 1935 Age: 89 y.o. Room/Bed: [facility] B Visit #: 3 out of 7 Discharge Recommendation: [facility] Facility Equipment Needed: No Prior Level of [...] entered room. Pt agreeable to sit on BS to allow for changing of sheets and [...] Gongora OT at 04/14/2025 9:03 AM EDT [facility] [place] [facility] Cardiology /Electrophysiology Progress Note HPI / Interval [...] 100 % Final Marian Casarez, [facility] - [facility] Date Of Service 04/13/2025 [1] atorvastatin, 20 [...] ANAHY CHARLES Mobile Relation: Daughter Preferred language: Surinamese Call Center Representative needed? No Albaro Hernández MD Division of Hospitalist Medicine [facility] [1] History reviewed. No pertinent past medical [...] from the original note were not included. [facility], Pulmonary Medicine [address] [place], [place] [id number] Patient - Mary Charles, Age - 89 [...] from last 7 days Lab Units 04/13/25 04204/08/25205204/08/25 1654 PH ART 7.426 7.332* 7.296* PCO2 [...] original note were not included. OCCUPATIONAL THERAPY [facility] Treatment Note Name/MRN: Mary Charles ([id number]) Date of : 1935 Age: 89 y.o. Room/Bed: [facility] B Visit #: 2 out of 7 visits Discharge Recommendation: [facility] Facility Equipment Needed: No Prior Level of Function Prior Level of ADL Function: Required Assist (for showering and pt wipes himself down with wash cloth IND) Prior Level of Mobility: Independent; Device: Rollator Prior Level of Transfers: Independent Assessment Pt agreeable to therapy at first attempt ([id number]) but states that he first needs to [...] care of himself. -Consider medication for mood? -Multifocal Lens Assembler support requested. -Monitor. Hx CKD III -CrCl [...] hospital setting and will send referral to product control and logistics analystpatient accounts coordinator for palliative SNF referral. -Questions answered, [...] other systems were reviewed and are negative. [place] Symptom Assessment Score [place] Score Pain Score (if non-verbal, add .FLACC [...] time LOURDES Ordaz CNP Hospitalist Progress Note 04/12/20256995240-6505: Please secure chat me for patient care issues. [phone]: Please secure chat [facility] night Hospitalist for any issues. Subjective: Admit [...] diet Regular; No Added Salt (3-4 gm) @[email or web address]@ 24HR INTAKE/OUTPUT: Intake/Output Summary (Last 24 hours) [...] Contact: MELVINANAHY Mobile Relation: Daughter Preferred language: Surinamese Call Center Representative needed? No Westley Martinez MD Division of Hospitalist Medicine Acute care [employer] PAGER: [employer] chat [1] History reviewed. No pertinent past [...] original note were not included. PHYSICAL THERAPY [facility] Treatment Note Name/MRN: Mary Charles ([id number]) Date of : 1935 Age: 89 y.o. Room/Bed: [facility] B Visit #: 3 out of 5 visits Discharge Recommendation: [facility] Facility Equipment Needed: No Assessment Pt making [...] act) Katina Banegas PTA Cosigned by Lucrecia Cabral, PT at 04/12/2025 10:47 AM EDT [facility] Cardiology /Electrophysiology Progress Note HPI / Interval History: Mary Charles has no prior cardiac history (has not seen a physician for many years) who presented to [facility] with worsening SOB, hypoxia and [...] results found for: TROPDELTSEC Recent Labs 04/10/2544204/11/25 05004/12/25 032 NA 142 139 139 K 3.2* 3.6 3.7 CL 95* 94* 95* CO2 35* 35* 37* BUN 32* 36* 40* CREATININE 1.65* 1.55* 1.53* Recent Labs 04/10/2544204/11/25 05004/12/25 032 WBC 12.4* 13.8* 12.0* HGB 7.2* 7.9* [...] Benson CNP Date Of Service 04/12/2025 [1] [facility] Respiratory Care Department Progress Note Comment [...] original note were not included. OCCUPATIONAL THERAPY [facility] Treatment Note Name/MRN: Mary Charles ([id number]) Date of : 1935 Age: 89 y.o. Room/Bed: B2-268/B2-268 B Visit #: 1 out of 7 Discharge Recommendation: [facility] Facility Equipment Needed: No Prior Level of [...] 1:38 PM EDT Hospitalist Progress Note 04/11/2025 [phone]: Please secure chat me for patient care issues. [phone]: Please secure chat [facility] Hospitalist for any issues. Subjective: [...] diet Regular; No Added Salt (3-4 gm) @[email or web address]@ 24HR INTAKE/OUTPUT: Intake/Output Summary (Last 24 hours) at 04/11/2025 1051 Last data filed at 04/10/2025 194 Gross per 24 hour Intake -- Output [...] ANAHY CHARLES Mobile Relation: Daughter Preferred language: Surinamese Call Center Representative needed? No Westley Martinez MD Division of Hospitalist Medicine [facility] PAGER: Epic caty [1] History reviewed. No pertinent past medical [...] ON 04/12/2025] torsemide, 40 mg, Oral, Daily [facility] [place] [facility] Cardiology /Electrophysiology Progress Note HPI / Interval History: Mary Charles has no prior cardiac history (has not seen a physician for many years) who presented to [facility] with worsening SOB, hypoxia and [...] results found for: TROPDELTSEC Recent Labs 04/09/25 04004/10/25 0443 04/11/25 0501 NA 142 142 139 K 3.5 3.2* 3.6 CL 98 95* 94* CO2 34* 35* 35* BUN 25* 32* 36* CREATININE 1.53* 1.65* 1.55* Recent Labs 04/08/25 1654 04/08/25 2053 04/09/25 0409 04/10/25 0443 04/11/25 0501 WBC -- [...] Benson CNP Date Of Service 04/11/2025 [1] [facility] Respiratory Care Department Progress Note Comment [...] original note were not included. PHYSICAL THERAPY [facility] Treatment Note Name/MRN: Mary Charles ([id number]) Date of : 1935 Age: 89 y.o. Room/Bed: 222-04/222-04 A Visit #: 2 out of 5 Discharge Recommendation: [facility] Facility Equipment Needed: No Assessment Pt making [...] original note were not included. OCCUPATIONAL THERAPY [facility] Initial Evaluation Name/MRN: Mary Charles ([id number]) Evaluation Date: 04/10/2025 Date of : 1935 Admission Date: 04/05/2025 3:55 PM Age: 89 y.o. 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 Goals and/or [...] [2] History reviewed. No pertinent surgical history. [facility] [place] [facility] Cardiology /Electrophysiology Progress Note HPI / Interval History: Mary Charles has no prior cardiac history (has not seen a physician for many years) who presented to [facility] with worsening SOB, hypoxia and [...] No results found for: TROPDELTSEC Recent Labs 04/08/257 04/09/25 0409 04/10/25 0443 NA 142 142 [...] remote tobacco abuse who was admitted to [facility] 04/05/25 with shortness of breath [...] Normal [] Scar/Lesion/Mass Inspection of teeth/lips/gums: Dentition: [x]Mary'S [place] Teeth []Dentures Lips/Gums [x]Intact []Lesion Present Oropharynx exam: Mucosa [x]Eitzen []Moist []Dry Neck: External Appearance: Overall Appearance:[x]Normal [...] 56 -- 50 Glucose: Recent Labs 04/08/251604/08/25 16304/09/2540804/10/25442 GLUCOSE 99 -- 90 98 POCGLU -- [...] ABGs: Recent Labs 04/08/25165304/08/252052 PHART 7.296* 7.332* CSH4YZA 80.1* 75.1* PO2ART 92.0 104.0 SAC9ELF 38.2* 38.9* N1DHNZVC 96.1* 97.0 Lactic Acid: No lab exists [...] can use the urinal, no indication for FAMILY AND CONSUMER SCIENCES PROFESSOR at this time (would be a poor [...] Code Status: Full Code Disposition: Transfer to [facility] with telemetry Critical care time spent reviewing labs/films, examining patient, collaborating with other physicians but excluding procedures for life threatening organ failure is 35 minutes. Precious Lewis MD Pulmonary & Critical Care Medicine [facility] Pager #[phone] [1] atorvastatin, 20 mg, Oral, Nightly carvedilol, 3.125 mg, Oral, BID WC furosemide, 40 mg, IntraVENous, BID hydrALAZINE, 25 mg, Oral, TID mupirocin, 1 Application, Nasal, BID pantoprazole, 40 mg, Oral, qAM AC polyethylene glycol (PEG) 3350, 17 g, Oral, Daily senna-docusate sodium, 2 tablet, Oral, BID [Held by provider] torsemide, 20 mg, Oral, Daily [2] [facility] [place] [facility] Cardiology /Electrophysiology Progress Note HPI / Interval History: Mary Charles has no prior cardiac history (has not seen a physician for many years) who presented to [facility] with worsening SOB, hypoxia and [...] Does appear tired. Family at bedside (brother, [id number], daughter). No significant complaints today. Assessment/Plan HF [...] Labs 04/07/25 0314 04/08/25 0017 04/08/25 1654 04/08/253 04/09/25 0409 WBC 11.5* 13.0* -- -- [...] original note were not included. PHYSICAL THERAPY [facility] Treatment Note Name/MRN: Mary Charles ([id number]) Date of : 1935 Age: 89 y.o. Room/Bed: 222-04/222-04 A Visit #: 1 out of 5 Discharge Recommendation: [facility] Facility Equipment Needed: No Assessment Pt demos [...] x1) Lucrecia Cabral PT Spiritual Care Note [facility] Palliative Care Patient Name:Mary Charles Chief [...] of grief. He spoke about moving from [place] to [place] as a young man. We did some life review. No follow up. Is there spiritual distress? YES Comment: Grief Interventions: spiritual support provided, emotional support provided, empathetic listening, and validated feelings. Care Plan: No care plan. Follow Up: No follow up. Debriefed: with senior quality control technician team. Carmelita Chairez 04/09/25 Images from [...] care of himself. -Consider medication for mood? -Multifocal Lens Assembler support requested. -Monitor. Hx CKD III -CrCl [...] other systems were reviewed and are negative. [place] Symptom Assessment Score [place] Score Pain Score (if non-verbal, add .FLACC [...] original note were not included. OCCUPATIONAL THERAPY [facility]'s Name/MRN: Mary Charles ([id number]) Date: 04/09/2025 OT order received, chart review [...] remote tobacco abuse who was admitted to [facility] 04/05/25 with shortness of breath [...] Normal [] Scar/Lesion/Mass Inspection of teeth/lips/gums: Dentition: [x]Mary'S [place] Teeth []Dentures Lips/Gums [x]Intact []Lesion Present Oropharynx exam: Mucosa [x]Eitzen []Moist []Dry Neck: External Appearance: Overall Appearance:[x]Normal [...] ABGs: Recent Labs 04/08/25165304/08/252052 PHART 7.296* 7.332* LBG3LZH 80.1* 75.1* PO2ART 92.0 104.0 CSX3QLE 38.2* 38.9* K5KITCQG 96.1* 97.0 Lactic Acid: No lab exists [...] urology evaluation, strict I/O's, no indication for FAMILY AND CONSUMER SCIENCES PROFESSOR at this time (would be a poor [...] Lewis MD Pulmonary & Critical Care Medicine [facility] Pager #[phone] [1] atorvastatin, 20 mg, Oral, Nightly carvedilol, [...] critical care time excluding procedures D/w Yamilka, FAMILY AND CONSUMER SCIENCES PROFESSOR, Rosangela, RN and family at bedside. Images from the original note were not included. OCCUPATIONAL THERAPY [facility]'s Name/MRN: Mary Charles ([id number]) Date: 04/08/2025 Therapy eval and treat orders [...] if needed. Opt gi follow up with [facility] Hospitalist Progress Note 04/08/2025 [phone]: Please secure chat ok for patient care issues. [phone]: Please secure chat [facility] Hospitalist for any issues. Subjective: [...] dose of lorazepam.... Adult diet Clear liquid @CPLA5MIBPMH@ 24HR INTAKE/OUTPUT: Intake/Output Summary (Last 24 hours) at 04/08/2025 1112 Last data filed at 04/07/2025 1950 Gross per 24 hour Intake 240 ml Output -- Net 240 ml Past Medical History: Medical History[1] LABS: CBC: Recent Labs 04/06/2533304/07/2531304/08/25 0017 WBC 10.3 11.5* 13.0* RBC 3.46* 3.40* 3.23* HGB 7.6* 7.4* 7.2* HCT 27.2* 27.2* 25.9* MCV 78.6 80.0 80.2 RDW 20.5* 20.5* 21.1* PLT 344 346 314 BMP: Recent Labs 04/06/2533304/07/2531304/08/25 0017 NA 143 [...] ANAHY CHARLES Mobile Relation: Daughter Preferred language: Surinamese Call Center Representative needed? No Westley Martinez MD Division of Hospitalist Medicine [employer] care solutions PAGER: opvizor chat [1] History reviewed. No pertinent past medical history. [2] [3] atorvastatin, 20 mg, Oral, Nightly carvedilol, 3.125 mg, Oral, BID WC [Held by provider] furosemide, 40 mg, IntraVENous, BID hydrALAZINE, 25 mg, Oral, TID iron sucrose, 200 mg, IntraVENous, q24h pantoprazole, 40 mg, Oral, qAM AC [facility] [place] [facility] Cardiology /Electrophysiology Progress Note HPI / Interval History: Mary Charles has no prior cardiac history (has not seen a physician for many years) who presented to [facility] with worsening SOB, hypoxia and [...] 3. Dysphagia - resolved Spiritual Care Note [facility] Palliative Care Patient Name:Mary Charles Chief Complaint: Chief Complaint Patient presents with Leg Swelling Shortness of Breath Pt arrived to triage for shortness of breath and swelling legs. Pt endorses increased work of breath, weakness, confusion and no appetite. Reason for visit: Multifocal Lens Assembler Consult Services Provided To:patient and family Background and visit note: Patient was senior quality control technician consult. Introduced myself and pastoral care [...] and when patient is able. Debriefed: with senior quality control technician team. Carmelita Chairez 04/07/25 Images from the original note were not included. PHYSICAL THERAPY [facility] Initial Evaluation Name/MRN: Mary Charles ([id number]) Evaluation Date: 04/07/2025 Date of : 1935 Admission Date: 04/05/2025 3:55 PM Age: 89 y.o. 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 Goals and/or treatment plan was established in collaboration with patient/family/other representatives. [1] History reviewed. No pertinent past medical history. [2] History reviewed. No pertinent surgical history. Cosigned by Lucrecia Cabral PT at 04/07/2025 4:00 PM EDT Hospitalist Progress Note 04/07/20256991432-8504: Please secure chat me for patient care issues. [phone]: Please secure chat [facility] night Hospitalist for any issues. Subjective: Admit Date: 04/05/2025 PCP: No primary care provider on file. Room#: -254/[facility] A Brief History: Patient is a 89-year-old [...] diet Regular; No Added Salt (3-4 gm) @[id number]@ 24HR INTAKE/OUTPUT: Intake/Output Summary (Last 24 hours) [...] ANAHY CHARLES Mobile Relation: Daughter Preferred language: Surinamese Call Center Representative needed? No Westley Martinez MD Division of Hospitalist Medicine Acute care solutions PAGER: opvizor chat [1] History reviewed. No pertinent past medical history. [2] [3] atorvastatin, 20 mg, Oral, Nightly carvedilol, 3.125 mg, Oral, BID WC furosemide, 40 mg, IntraVENous, BID hydrALAZINE, 25 mg, Oral, TID iron sucrose, 200 mg, IntraVENous, q24h pantoprazole, 40 mg, Oral, qAM AC [facility] [place] [facility] Cardiology /Electrophysiology Progress Note HPI / Interval History: Mary Charles has no prior cardiac history (has not seen a physician for many years) who presented to [facility] with worsening SOB, hypoxia and [...] assess Fluid Accumulation: Moderate to Severe Extremities Trim Mounter Strength: Not Performed Nutrition Assessment: 89 y.o. [...] anemia and frailty. Conservative, medical management. nursing officer in room. Pt sleeping /snoring -name called numerous times pt did not wake -left undisturbed at this time. Estimated Daily Nutrient Needs: Energy Requirements Based On: Kcal/kg Weight Used for Energy Requirements: Lewis Weight for Energy Calculation (kg): 70 kg Total Energy Requirements (kcals/day): 1813-4797 (25-30) Weight Used for Protein Requirements: Lewis Weight in Kg Used for Protein Requirements: [...] lb) Usual Body Weight: (unable to obtain) Lewis Body Weight (lbs) (Calculated): 154 lbs Lewis Body Weight (Kg) (Calculated): 70 kg % Lewis Body Weight (Calculated): 129.9 % BMI (kg/m2) [...] soon to determine Kristin Duffy RD Contact: *[phone] or via Secure Chat [1] atorvastatin, 20 mg, Oral, Nightly carvedilol, 3.125 mg, Oral, BID WC furosemide, 40 mg, IntraVENous, BID hydrALAZINE, 25 mg, Oral, TID iron sucrose, 200 mg, IntraVENous, q24h pantoprazole, 40 mg, Oral, qAM AC [2] Hospitalist Progress Note 04/06/20256990854-3054: Please secure chat me for patient care issues. [phone]: Please secure chat [facility] Hospitalist for any issues. Subjective: [...] ferritin, IV Venofer added Adult diet Regular @GKXA3XMDLEX@ 24HR INTAKE/OUTPUT: Intake/Output Summary (Last 24 hours) at 04/06/2025 1352 Last data filed at 04/06/2025 1000 Gross per 24 hour Intake 1339.33 ml Output 800 ml Net 539.33 ml Past Medical History: Medical History[1] LABS: CBC: Recent Labs 04/05/25 16104/06/25 0334 [...] 8 13 LIVER PROFILE: Recent Labs 04/05/25 16104/06/25 0334 AST 22 25 ALT 7 6 [...] ANAHY CHARLES Mobile Relation: Daughter Preferred language: Surinamese Call Center Representative needed? No Westley Martinez MD Division of Hospitalist Medicine [employer] care [employer] PAGER: Epic chat [1] History reviewed. No pertinent past medical history. [2] [3] atorvastatin, 20 mg, Oral, Nightly carvedilol, 3.125 mg, Oral, BID WC furosemide, 40 mg, IntraVENous, BID hydrALAZINE, 25 mg, Oral, TID iron sucrose, 200 mg, IntraVENous, q24h pantoprazole, 40 mg, Oral, qAM AC documented in this encounter [facility] 04-14-2025 Note IR US Thoracentesis 650 ml of hines yellow fluid removed. Vaseline guaze dressing applied. Patient tolerated procedure well. Patient returned to [place] patient room. [facility] 04-14-2025 Consult note Associated Order (s): IP CONSULT TO PALLIATIVE CARE Consult acknowledged. Patient previously seen by palliative care. Signed off on 04-12. Patient has had worsening status in last couple days, worsening pleural effusion. Spoke with pulmonology RN ENTEROSTOMAL, Yesi today. Consult placed. Will see tomorrow s/p thoracentesis. Signed, Bela Agustin APRN, CNP, [facility] [phone] Cosigned by Diana Marsh MD at 04/14/2025 1:38 PM EDT Images from the original note were not included. [facility], Pulmonary Medicine [address] [place], [place] [id number] [id number] 1935 Date of Admission - 04/05/2025 3:55 PM Date of evaluation - 04/12/2025 Room - B2268/[facility] B Hospital Day - 7 Consulting - [...] ml Output 650 ml Net -410 ml @[id number]@ Physical Exam Physical Exam Vitals and nursing [...] Pulmonary function tests (PFT's) No PFT's in [facility] Sleep History No sleep study available in [facility] Radiology CXR 04/11/25: IMPRESSION: Cardiomegaly [...] deltoids) Fluid Accumulation: Moderate to Severe Extremities Trim Mounter Strength: Normal tool setter apprentice strength Nutrition Assessment: 89 year old man who remains admitted to [facility] with shortness of breath and [...] On: Kcal/kg Weight Used for Energy Requirements: Lewis Weight for Energy Calculation (kg): 70 kg Total Energy Requirements (kcals/day): 7379-7259 (25-30) Weight Used for Protein Requirements: Lewis Weight in Kg Used for Protein Requirements: [...] Body Weight: (none on file to review) Lewis Body Weight (lbs) (Calculated): 154 lbs Lewis Body Weight (Kg) (Calculated): 70 kg % Lewis Body Weight (Calculated): 136.1 % BMI (kg/m2) [...] to determine Darleen Stubbs RDN, LDN, Contact: *[phone] Associated Order(s): INPATIENT CONSULT TO CRITICAL CARE - MEDICAL TEAM Internal Medicine: MICU Initial Consult Name: Mary Charles : 1935(89 y.o.) Date: 04/08/25 Attending: Precious Lewis MD Subjective: Chief Complaint: shortness of breath HPI: Patient is a pleasant 89 year-old male with a history of chronic HFrEF and prior remote tobacco abuse who was admitted to [facility] 04/05/25 with shortness of breath [...] Normal [] Scar/Lesion/Mass Inspection of teeth/lips/gums Dentition: [x]Mary'S [place] Teeth []Dentures Lips/Gums: [x]Intact []Lesion Present Mucosa: [x]Eitzen []Moist []Dry Neck: External Appearance Overall Appearance: [...] ALKPHOS 63 57 57 Glucose: Recent Labs 04/06/2533304/07/2531304/08/251604/08/25 1631 GLUCOSE 98 88 99 -- POCGLU [...] ABGs: Recent Labs 04/08/25 1654 PHART 7.296* GFO1AVN 80.1* PO2ART 92.0 ZAQ8EQT 38.2* I5PAJDDJ Nasal Cannula (LPM) Lactic Acid: No results [...] Place garcía, strict I/O's, no indication for FAMILY AND CONSUMER SCIENCES PROFESSOR at this time (would be a poor [...] care of himself. -Consider medication for mood? -Multifocal Lens Assembler support requested. -Monitor. Hx CKD III -CrCl [...] Living status: alone Work history: status: No Spiritism: No episcopal on file ROS: See palliative care ROS/ESAS below; All other systems were reviewed and are negative. [place] Symptom Assessment Score [place] Score Pain Score (if non-verbal, add .FLACC [...] 2024, has a son who lives in [place] and daughter that lives close by Retired from working at [employer] for 43 years No tobacco use Denies [...] Allergies Associated Order(s): IP CONSULT TO CARDIOLOGY [facility] [place] Cardiology Consult Note Reason for Consult/Chief Complaint: Heart failure Consulting MD: Dr. Mukkamalla History of Present Illness: Mary Melvin is a 89 y.o. male admitted with [...] daily Consider palliative approach Cari Scherer MD, [facility] DATE of SERVICE: 04/06/2025 [1] History reviewed. No pertinent past medical history. [2] History reviewed. No pertinent surgical history. [3] No family history on file. [4] [5] furosemide, 40 mg, IntraVENous, BID iron sucrose, 200 mg, IntraVENous, q24h pantoprazole, 40 mg, Oral, qAM AC documented in this encounter [facility] 04-13-2025 Hospital Discharg e instructions LOURDES Cervantes CNP - 04/13/2025 12:17 PM EDT Please call [employer] at [phone] to arrange for home NIV once stable [...] ANAHY CHARLES Mobile Relation: Daughter Preferred language: Surinamese Call Center Representative needed? No Past Surgical History: History reviewed. [...] Minimal assistance Toileting Total assistance Feeding Independent Data Center Engineer Minimal assistance Med Delivery yes Wound [...] Date: Discharging to Facility/ Agency Name: [facility] Address:[address] [place] [address] Phone:[phone] Dialysis Facility (if applicable) Name: Address: Dialysis Schedule: Phone: Fax: Sorting Livestock Worker/Diagrammer And Seamer signature: ICIAN SECTION Name: Mary Charles Prognosis: [...] to a nursing facility directly from an [facility] or a unit of a hospital that is not operated by or licensed by [facility] under section 5119.14 or 5160-3-15.1 [...] H&P PHYSICIAN SIGNATURE: documented in this encounter [facility] 04-09-2025 Note [facility] 04-09-2025 Procedure note Associated Ord er(s): Thoracentesis [...] this procedure note documented in this encounter [facility] 04-09-2025 Note [facility] 04-05-2025 Note [facility] 04-05-2025 History and physical note Attending History [...] No Known Allergies documented in this encounter [facility] Health Evaluation note Diagnosis Acute congestive heart failure, unspecified heart failure type (HCC)- Primary Acute congestive heart failure, unspecified heart failure type (HCC) Anemia, unspecified type Shortness of breath Hypoxia Hypoxemia CHF (congestive heart failure), NYHA class I, acute on chronic, combined (HCC) documented in this encounter [facility] HealthEvaluation note* Diagnosis Acute congestive heart failure, unspecified heart failure type (HCC)- Primary documented in this encounter [facility] HealthEvaluation note* Diagnosis Chronic systolic heart failure (HCC)- Primary Chronic systolic heart failure Coronary artery disease involving [place] coronary artery of [place] heart without angina pectoris Pleural effusion Unspecified pleural effusion Acute kidney injury superimposed on chronic kidney disease (HCC) (HCC) 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 chronic kidney disease (HCC) PAC (premature atrial contraction) Supraventricular premature beats Abnormal CAT scan Other nonspecific (abnormal) findings on radiological and other examinations of body structure [facility] Diagnosis Chronic systolic heart failure (HCC)- Primary Chronic systolic heart failure Coronary artery disease involving [place] coronary artery of [place] heart without angina pectoris Pleural effusion Unspecified [...] Debility Unspecified debility documented in this encounter [facility] HealthEvaluation note* Diagnosis Chronic systolic heart failure (HCC)- Primary Chronic systolic heart failure Coronary artery disease involving [place] coronary artery of [place] heart without angina pectoris Pleural effusion Unspecified pleural effusion Acute kidney injury superimposed on chronic kidney disease 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 chronic kidney disease (CMS/HCC) PAC (premature atrial contraction) Supraventricular premature beats Abnormal CAT scan Other nonspecific (abnormal) findings on radiological and other examinations of body structure Chronic systolic heart failure (HCC)- Primary Chronic systolic heart failure documented in this encounter [facility] HealthEvaluation note* Diagnosis Chronic systolic heart failure (HCC)- Primary Chronic systolic heart failure Coronary artery disease involving [place] coronary artery of [place] heart without angina pectoris Pleural effusion Unspecified pleural effusion Acute kidney injury superimposed on chronic kidney disease 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 chronic kidney disease (CMS/HCC) PAC (premature atrial contraction) Supraventricular premature beats Abnormal CAT scan Other nonspecific (abnormal) findings on radiological and other examinations of body structure Anemia due to chronic kidney disease, unspecified CKD stage- Primary documented in this encounter [facility] HealthEvaluation note* Diagnosis Chronic systolic heart failure (HCC)- Primary Chronic systolic heart failure Coronary artery disease involving [place] coronary artery of [place] heart without angina pectoris Pleural effusion Unspecified pleural effusion Acute kidney injury superimposed on chronic kidney disease 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 chronic kidney disease (CMS/HCC) PAC (premature atrial contraction) Supraventricular premature beats Abnormal CAT scan Other nonspecific (abnormal) findings on radiological and other examinations of body structure Symptomatic anemia- Primary documented in this encounter [facility] Chief Complaint and Reason for Visit Chief [...] type (HCC) Procedures .. Albaro Hernández MD [address] [place] [address] Phone: tel: fax: [facility] Cardiac Progressive Care Unit [address]U [address] [place] [address] Phone: tel: Referral ID Status Reason Start [...] stool) 0503 (Not Given - Provider: Jose Tinoco, RN - Reason: Patient/family refused)1402 (Given - Provider: Danielle Fu, LUCIA) 0854 (Given - Provider: China Vogel RN)1500 (Canceled Entry - Provider: Automatic Discharge Provider - Comment: Automatically canceled at discontinue of medication order) spironolactone (Aldactone) tablet 25 mg 25 mg, Oral, Daily, First dose on Sat04/13/25 at 1630 0914 (Given - Provider: Kourtney Jordan, RN) 0836 (Given - Provider: Danielle Fu, RN) 0854 (Given - Provider: China Vogel, RN) torsemide (Demadex) tablet 40 mg 40 mg, Oral, Daily, First dose (after last reorder) on Sat04/16/25 at 0900 0835 (Given - Provider: Danielle Fu, RN) 0854 (Given - Provider: China Vogel, RN) PRN Medication Order 04/15/2025 04/16/2025 04/17/2025 [...] sedation for opioid reversal - MUST notify contact center agent provider immediately after first dose, may give [...] Care Teams (unrecognized sec tion and content) Clearance Center Manager Relationship Specialty Start Date End Date Aliya Tadeo RN Chief Cardiopulmonary Technologist Manager 04/09/25 Clearance Center Manager Relationship Specialty Start Date End Date Aliya Tadeo RN Chief Cardiopulmonary Technologist Manager 04/09/25 Clearance Center Manager Relationship Specialty Start Date End Date Aliya Tadeo RN Registered Nurse Chief Cardiopulmonary Technologist Manager 04/09/25 Clearance Center Manager Relationship Specialty Start Date End Date Aliya Tadeo RN Registered Nurse Chief Cardiopulmonary Technologist Manager 04/09/25 Clearance Center Manager Relationship Specialty Start Date End Date Aliya Tadeo RN Registered Nurse Chief Cardiopulmonary Technologist Manager 04/09/25 Clearance Center Manager Relationship Specialty Start Date End Date Aliya Tadeo RN Registered Nurse Chief Cardiopulmonary Technologist Manager 04/09/25 Clearance Center Manager Relationship Specialty Start Date End Date Aliya Tadeo RN Registered Nurse Chief Cardiopulmonary Technologist Manager 04/09/25 Clearance Center Manager Relationship Specialty Start Date End Date Ravi Kirk, [address] [place] [id number] PCP - General Internal Medicine 07/19/25 (unrecognized sect ion and content) No Status Records FoundNo Status Records Found INFORMATION SOURCE (unrecogn ized section and content) DATE CREATED AUTHOR 07/19/2025 [facility] DATE CREATED AUTHOR 'S KIYA ATION 07/20/2025 [facility] tem [facility] FOR RECORDS PERTAINING TO PATIENTS WHO ARE [...] BE BASED ON THE PRIMARY CLINICAL RECORDS. [facility] [employer] [facility]. provides no warranty or guarantee of the accuracy or completeness of information in this document.
[2025-08-25 08:44] LABS: Hematocrit 19.4 % (40-54); Hemoglobin 5.9 g/dL (13.0-16.5); POSITIVE COUNT YES
== END ==
LOC: OLS.ACH2 05:00
PROVIDERS: PCP Internal Medicine; Visit Provider Internal Medicine
DX: D63.1 Anemia in chronic kidney disease (principal)
CPT/HCPCS: 36415; 85014; 85018

== ENCOUNTER 2025-08-25 10:28 | Inpatient (IN) | payer MEDICARE, BC, SELFPAY ==
[2025-08-25] VITALS (24 sets, daily range): BP systolic 91–137; BP diastolic 48–96; PULSE 50–70; RESP 14–165; TEMP 36.2–37.1; O2SAT 93–100; BMI 29.5; BMI 30.2
--- NOTE | 2025-08-25 11:32 | EX.ED.DYSGE1 ---
HPI History of Present Illness Chief Complaint: Abn Labs Narrative Narrative: Chief complaint and HPI: 89-year-old male with past medical history of CAD, CHF, kidney disease presents for evaluation of GI bleed and acute on chronic anemia. Patient states for quite some time he has had dark stools. States he has a known GI bleed. States that he is scheduled to see GI physician at [facility]. He has yet to have a colonoscopy. He states that they did not feel that he was a good candidate for colonoscopy given his heart history. He is not on blood thinners. States that he had basic blood work performed today that showed a hemoglobin of 5.6. He states occasionally he gets some right lower quadrant abdominal pain. He denies any fever, chills, shortness of breath, chest pain, lightheadedness, fatigue, constipation, diarrhea, dysuria. Review of systems: See HPI Medications: As listed on the chart Allergies: As listed on the chart PFSH: Per chart Vital signs: As listed on the chart. Reviewed. Physical exam: Gen: A&O x3, NAD Head: Normocephalic, atraumatic Eyes: No sclera icterus, conjunctiva clear ENT: Moist mucous membranes CV: RRR, no murmurs Resp: Lungs CTA BL, no w/r/c GI: Abd soft, non-distended, non-tender, no r/r/g Rectal: Normal external examination. No evidence of hemorrhoids or fissures. Normal tone and sensation. No masses, fluctuance, or tenderness. No pain out of proportion. Stool brown on gloved finger Musc: Moves all extremities, no deformity Skin: Warm, dry Psych: Cooperative, appropriate mood and affect [facility] Medical History Anemia Kidney disease Coronary artery disease Congestive heart failure (CHF) Home Medications ?Medication ?Instructions ?Recorded ?Last Taken ?Type atorvastatin 20 mg tablet 20 mg PO DAILY 08/25/25 08/24/25 History ferrous sulfate 325 mg (65 mg 325 mg PO DAILY 08/25/25 08/24/25 History iron) tablet (FeroSul) metoprolol succinate 25 mg 25 mg PO DAILY 08/25/25 08/25/25 History tablet,extended release 24 hr omeprazole 40 mg capsule,delayed 40 mg PO DAILY 08/25/25 Unknown History release torsemide 20 mg tablet 20 mg PO DAILY 08/25/25 08/25/25 History Allergy/AdvReac Type Severity Reaction Status Date / Time No Known Allergies Allergy Verified 08/25/25 10:29 Family History unable to obtain Surgical History no surgical history Social History housing: long-term number of children: 2 financial difficulty paying for basics: not applicable current occupational status: retired current occupational exposures/hazards: No pets and animals: No history of recent travel: No sexually active: No do you think of yourself as: straight/heterosexual current gender identity: male Smoking Status: Never smoker EXAM Physical Exam Const Vital Signs: 08/25/25 10:29 08/25/25 10:36 08/25/25 10:41 Temperature 97.4 F L 97.4 F L Temperature Source Oral Temporal Pulse Rate 64 Respiratory Rate 15 Respiratory Effort Normal Non-Labored Respiratory Pattern Normal Blood Pressure 101/64 Blood Pressure Mean 76 Blood Pressure Source Blood Pressure Position Blood Pressure Location Pulse Ox 98 Oxygen Delivery Method Room Air 08/25/25 11:53 08/25/25 12:10 08/25/25 13:18 Temperature 97.7 F L Temperature Source Temporal Pulse Rate 65 58 L 66 Respiratory Rate 16 16 17 Respiratory Effort Respiratory Pattern Blood Pressure 97/50 L 101/49 L 101/51 L Blood Pressure Mean 65 66 67 Blood Pressure Source Blood Pressure Position Blood Pressure Location Pulse Ox 98 96 96 Oxygen Delivery Method Room Air Room Air Room Air 08/25/25 13:32 08/25/25 13:47 08/25/25 14:24 Temperature 97.6 F L 97.5 F L Temperature Source Temporal Temporal Pulse Rate 59 L 55 L 60 Respiratory Rate 16 15 15 Respiratory Effort Respiratory Pattern Blood Pressure 91/49 L 97/49 L 106/59 L Blood Pressure Mean 63 65 74 Blood Pressure Source Monitor Monitor Blood Pressure Position Sitting Sitting Blood Pressure Location Right Arm Right Arm Pulse Ox 96 97 97 Oxygen Delivery Method Room Air Room Air Room Air MDM MDM MDM Narrative Medical decision making narrative: 89-year-old male with past medical history of CAD, CHF, kidney disease presents for evaluation of GI bleed and acute on chronic anemia. Patient states for quite some time he has had dark stools. States he has a known GI bleed. States that he is scheduled to see GI physician at [facility]. He has yet to have a colonoscopy. He states that they did not feel that he was a good candidate for colonoscopy given his heart history. He is not on blood thinners. States that he had basic blood work performed today that showed a hemoglobin of 5.6. He states he is asymptomatic from the anemia. Differential diagnosis includes but is not limited to GI bleed, electrolyte abnormality, anemia, dehydration. Patient already received NS bolus via EMS therefore will not order another one. Laboratory workup ordered including CTA abdomen and pelvis. CBC with leukocytosis of 14.6. On chart review, patient has a history of leukocytosis. Patient has acute on chronic anemia. Hemoglobin 5.9. Patient will require blood transfusion, 2 units. This was ordered. Patient consented. Chronic thrombocytosis of 473. INR unremarkable. CMP shows baseline CKD with creatinine 1.92. No transaminitis. Lactic unremarkable. CT abdomen pelvis shows asymmetric wall thickening of the cecum concerning for colon cancer. Filling defect in the left lobar pulmonary artery consistent with PE. No evidence of right heart strain. This was personally relayed to me by radiology. Patient has acute blood loss and therefore cannot be placed on anticoagulation. He received contrast for CKD. I did consult CT, patient unable to have CT chest at this time given previous contrast load. Possibly later today or early tomorrow morning. Given CT abdomen pelvis findings, I did consult general surgery and talk to Dr. Rivera. Alina to admit from his standpoint. Will not be able to do colonoscopy until next Saturday. Given this, I discussed the patient with Dr. Chen. Alina to admit from his standpoint. Will likely be able to do colonoscopy sooner. Given patient will likely need an IVC filter, I did speak with Kalani from Dr. Dominguez's office with vascular surgery. Plan will be to place IVC filter today. Patient was updated of all the results of her and understand the plan. I spoke with the hospice service who accepted admission. 35 minutes of critical care time utilized in managing the patient. This is due to high probability of and deterioration of the patient based on the patient's condition and excludes any separately billable procedures. Impression: 1. Acute on chronic anemia requiring blood transfusion 2. GI bleed with concern for possible new colon cancer of the cecum 3. Left PE 4. Chronic thrombocytosis 5. CKD Lab Data Labs: Laboratory Results - last 24 hr 08/25/25 11:30 WBC 14.6 H RBC 2.11 L Hgb 5.9 L* Hct 19.1 L MCV 90.5 MCH 28.0 MCHC 30.9 L RDW Std Deviation 44.5 H RDW Coeff of Marilyn 13.5 Plt Count 473 H MPV 8.1 Immature Gran % (Auto) 1.100 H Neut % (Auto) 73.2 H Lymph % (Auto) 12.6 L [place] % (Auto) 10.2 H Eos % (Auto) 2.3 Baso % (Auto) 0.6 Absolute Neuts (auto) 10.7 H Absolute Lymphs (auto) 1.84 Nucleated RBC % 0 PT 13.9 INR 1.1 APTT 47.2 H Sodium 139 Potassium 4.0 Chloride 101 Carbon Dioxide 28.5 Anion Gap 9 BUN 36 H Creatinine 1.92 H Estim Creat Clear Calc 29.02 L Est GFR (MDRD) Non-Af 33 L BUN/Creatinine Ratio 18.5 Glucose 113 H Lactic Acid 1.9 Calcium 8.3 Total Bilirubin 0.25 AST 12 ALT < 5 Alkaline Phosphatase 66 Total Protein 6.3 Albumin 2.9 L Globulin 3.4 Albumin/Globulin Ratio 0.9 Blood Type A NEGATIVE Antibody Screen NEGATIVE Crossmatch See Detail Radiography Diagnostic Testing: Clinical Impression(s) from Imaging Studies Abdomen/Pelvis CTA 08/25/25 12:20 IMPRESSION: No contrast extravasation in the bowel lumen. No free fluid in the abdomen and pelvis. Asymmetric wall thickening of the cecum concerning for colon cancer. Filling defect in the left lobar pulmonary artery consistent with pulmonary embolism. No evidence of right heart strain. Findings were discussed with Dave Raphael 08/25/2025 12:48 p.m. Reading Location: [facility] Discharge Plan Triage Chief Complaint: Abn Labs ED Provider: Dave Guardado Dx/Rx/DC Orders Prescriptions: No Action atorvastatin 20 mg tablet 20 mg PO DAILY metoprolol succinate 25 mg tablet extended release 24 hr 25 mg PO DAILY ferrous sulfate [FeroSul] 325 mg (65 mg iron) tablet 325 mg PO DAILY torsemide 20 mg tablet 20 mg PO DAILY omeprazole 40 mg capsule,delayed release(DR/EC) 40 mg PO DAILY Primary Care Provider: Negro Messer Referrals: Negro eMsser MD [Primary Care Provider, Medical] Print Language: Peruvian
[2025-08-25 11:40] LABS: Hematocrit 19.1 % (40-54); Hemoglobin 5.9 g/dL (13.0-16.5); Immature Granulocytes Count 0.160 X10^3/uL (0.0-0.0); Mean Corp Hgb Conc 30.9 g/dL (32-36); Mean Corpuscular Volume 90.5 fL (80-94); Mean Platelet Vol. 8.1 fl (6.2-12.0); NRBC Flagged by Analyzer 0 % (0-5); POSITIVE COUNT YES; Platelet Count 473 K/mm3 (150-450); RBC Distribution Width CV 13.5 % (11.6-14.6); RBC Distribution Width SD 44.5 fl (35.1-43.9); Red Blood Count 2.11 M/mm3 (4.6-6.2); White Blood Count 14.6 K/mm3 (4.4-11.0)
[2025-08-25 11:51] LABS: Prothrombin Time (Protime)PT. 13.9 SECONDS (11.7-14.9)
[2025-08-25 11:52] LABS: Partial Thromboplast Time 47.2 Seconds (24.1-36.2)
[2025-08-25 12:08] LABS: AST(SGOT) 12 U/L (<=37); Alanine Aminotransfer ALT/SGPT < 5 U/L (<=46); Albumin, Serum 2.9 g/dL (3.4-4.8); Alkaline Phosphatase 66 U/L (40-129); Anion Gap 9 (5-15); BUN 36 mg/dL (4-19); BUN/Creat Ratio 18.5 RATIO (10-20); Calcium,Total 8.3 mg/dL (7.6-11.0); Carbon Dioxide 28.5 mmol/L (21.0-32.0); Chloride 101 mmol/L (98-108); Estimated Creatinine Clearance 29.02 ml/min (50-250); Globulin 3.4 g/dL (2.2-4.2); Glucose 113 mg/dL (70-99); Potassium 4.0 mmol/L (3.3-5.1)
--- NOTE | 2025-08-25 12:20 | CT_ITS ---
PROCEDURE: CTA ABD/PELVIS W/WO CONTRAST 08/25/2025 REASON FOR EXAM: GI BLEED TECHNIQUE: Procedure Code: [id number] Modality: CT Procedure: CTA ABD/PELVIS W/WO CONTRAST Multiplanar Sagittal and Coronal images were obtained. CONTRAST: Isovue 370 VOLUME: 75 mL One or more dose reduction techniques were used (e.g., Automated exposure control, adjustment of the mA and/or kV according to patient size, use of iterative reconstruction technique). RADIATION DOSE SUMMARY: CTDlvol: 19.43 mGy DLP: 1173.48 mGycm COMPARISON: None. FINDINGS: Aorta: Atherosclerotic calcifications. No aneurysm. Iliac Arteries: Patent. Celiac: Patent SMA: Patent LUIZA : Patent Right Renal: Duplicated and patent. Left Renal: Patent Extravascular Findings: Filling defect seen along the left lower lobar pulmonary artery consistent with pulmonary embolism. Small left pleural effusion with atelectasis. The liver, spleen, gallbladder, pancreas, kidneys, adrenal glands are unremarkable. No hydronephrosis or nephrolithiasis. No kidney masses. The bladder is within normal limits. No free air in the abdomen and pelvis. Asymmetric thickening of the right cecum concerning for colon cancer. Colonic diverticulosis without evidence of acute diverticulitis. No bowel obstruction. No contrast extravasation within the lumen to indicate active bleeding. No free air or free fluid in the abdomen and pelvis. CT/CTA Abd/Pelvis W/WO Contrast IMPRESSION: No contrast extravasation in the bowel lumen. No free fluid in the abdomen and pelvis. Asymmetric wall thickening of the cecum concerning for colon cancer. Filling defect in the left lobar pulmonary artery consistent with pulmonary emb olism. No evidence of right heart strain. Findings were discussed with Dave Raphael 08/25/2025 12:48 p.m. Reading Location: [facility]
--- NOTE | 2025-08-25 14:51 | PCM.HP.STD ---
HPI - General General Date of Admission: 08/25/25 Date of Service: 08/25/25 Chief Complaint: Acute on chronic anemia and dark stools HPI Narrative MARY CHARLES, is a 89 M who presented to [facility] ED on 08/25/2025 from assisted living with acute on chronic anemia on outpatient labs and ongoing dark stools. [facility] records reviewed. Patient has received most of his care through [facility] to this point. He was hospitalized there from 04/05-04/17. He was hospitalized for acute on chronic hypoxic and hypercapnic respiratory failure secondary to volume overload due to acute HFrEF. He was found on echo to have newly reduced EF 20 to 25%. He had thoracentesis done on both sides including twice on the left side during the hospitalization. His respiratory status improved significantly with this and with IV diuresis. He was found to have worsening anemia as well as and CT abdomen pelvis showed mural thickening of the cecum and terminal ileum. Plan was for colonoscopy as an outpatient at that time. Patient was discharged to SNF after hospitalization. He was at SNF for period of time and then moved into assisted living at the [facility]. He has been getting labs checked frequently due to his known anemia and concern for possible cecal malignancy. He was seen in the ED at [facility] in July for acute on chronic anemia and required a blood transfusion with improvement. They discussed with GI who noted no need for urgent colonoscopy. Given his reduced EF, there apparently was concern from GI about his ability to tolerate a colonoscopy. He had outpatient labs today that showed a hemoglobin of 5.9, down from 6.4 on 08/18 and 7.1 on 08/11. He has been having dark stools over this timeframe. Given the worsening anemia, he was brought to the ED for further evaluation. In the ED he was normotensive, in normal sinus rhythm, afebrile and stable on room air at rest. CBC with persistent mild leukocytosis and persistent mild thrombocytosis, no other concerning findings. BMP with creatinine 1.92 (at baseline), otherwise benign. CTA abdomen pelvis showed asymmetric wall thickening of the cecum concerning for colon cancer; also showed a filling defect in the left lobar pulmonary artery consistent with PE with no evidence of right heart strain. Dr. Dang discussed the case with Nicole Morrow and Friend. Dr. Dominguez is planning to take the patient down for IVC filter placement this afternoon. Dr. Rivera is recommending colonoscopy first for diagnosis likely followed by surgical resection. Dr. Chen noted that he should be able to do the colonoscopy during this hospitalization. Hospitalist was then contacted for admission. I saw the patient at bedside in the ED. Patient was mildly fatigued appearing but otherwise sitting back comfortably in bed, conversing normally, in no acute distress. He was alert and oriented x 3 and mentally sharp. However, he appears to have low health literacy and does not have a great understanding of his degree of heart failure or anemia with possible cancer. He notes that his daughter and son are both mackey of assistant attorney general and help him with decision making. His daughter lives in [facility] and son lives in [place]. Patient reports mild right-sided lower abdominal pain but otherwise denies any acute concerns currently. Will be admitted for further management. [facility] Medical History (Updated 08/25/25 @ 18:[address] Armando Norton, ) Anemia Kidney disease Coronary artery disease Congestive heart failure (CHF) Home Medications ?Medication ?Instructions ?Recorded ?Last Taken ?Type atorvastatin 20 mg tablet 20 mg PO DAILY 08/25/25 08/24/25 History ferrous sulfate 325 mg (65 mg 325 mg PO DAILY 08/25/25 08/24/25 History iron) tablet (FeroSul) metoprolol succinate 25 mg 25 mg PO DAILY 08/25/25 08/25/25 History tablet,extended release 24 hr omeprazole 40 mg capsule,delayed 40 mg PO DAILY 08/25/25 Unknown History release torsemide 20 mg tablet 20 mg PO DAILY 08/25/25 08/25/25 History Allergy/AdvReac Type Severity Reaction Status Date / Time No Known Allergies Allergy Verified 08/25/25 10:29 Family History no significant family his Surgical History no surgical history Social History housing: longterm number of children: 2 current occupational status: retired current occupational exposures/hazards: No pets and animals: No history of recent travel: No sexually active: No Smoking Status: Former smoker ROS Constitutional Constitutional: Reports fatigue; Denies chills, fever(s) or weakness Cardiovascular Cardiovascular: Denies chest pain Respiratory/Chest Respiratory/Chest: Denies shortness of breath at rest Gastrointestinal Gastrointestinal: Reports abdominal pain and melena; Denies constipation, nausea or vomiting Genitourinary Genitourinary: Denies dysuria Musculoskeletal Musculoskeletal: Denies arthralgias or myalgias Neurologic Neurologic: Denies dizziness, focal weakness or headache(s) Patient's Goals Of Care . What matters most to you about your health?: Being healthy and quality of life What would you like to achieve or improve as a result of your hospital stay?: Symptom improvement, get formal diagnosis for colon issues Vital Signs Vital Signs Vital Signs: 08/25/25 10:29 08/25/25 10:36 08/25/25 10:41 Temperature 97.4 F L 97.4 F L Temperature Source Oral Temporal Pulse Rate 64 Respiratory Rate 15 Respiratory Effort Normal Non-Labored Respiratory Pattern Normal Blood Pressure 101/64 Blood Pressure Mean 76 Blood Pressure Source Blood Pressure Position Blood Pressure Location Pulse Ox 98 Oxygen Delivery Method Room Air 08/25/25 11:53 08/25/25 12:10 08/25/25 13:18 Temperature 97.7 F L Temperature Source Temporal Pulse Rate 65 58 L 66 Respiratory Rate 16 16 17 Respiratory Effort Respiratory Pattern Blood Pressure 97/50 L 101/49 L 101/51 L Blood Pressure Mean 65 66 67 Blood Pressure Source Blood Pressure Position Blood Pressure Location Pulse Ox 98 96 96 Oxygen Delivery Method Room Air Room Air Room Air 08/25/25 13:32 08/25/25 13:47 08/25/25 14:24 Temperature 97.6 F L 97.5 F L Temperature Source Temporal Temporal Pulse Rate 59 L 55 L 60 Respiratory Rate 16 15 15 Respiratory Effort Respiratory Pattern Blood Pressure 91/49 L 97/49 L 106/59 L Blood Pressure Mean 63 65 74 Blood Pressure Source Monitor Monitor Blood Pressure Position Sitting Sitting Blood Pressure Location Right Arm Right Arm Pulse Ox 96 97 97 Oxygen Delivery Method Room Air Room Air Room Air Weight Weight: 90.6 kg Body Mass Index (BMI) 29.5 Physical Exam Const alert, oriented x3 and no apparent distress Constitutional Narrative: Elderly male, class I obesity, mildly fatigued appearing, otherwise sitting back comfortably in bed, conversing normally, in no acute distress. General Appearance: cooperative and comfortable HEENT normocephalic, head/scalp atraumatic, hearing grossly normal bilaterally, nasal mucous membranes and turbinates normal and moist oral mucous membranes Eyes PERRL, EOMs intact bilaterally and conjunctivae normal Neck full ROM Chest inspection of chest normal Resp normal respiratory effort, normal air movement, no use of accessory muscles and clear to auscultation bilaterally Cardio regular rate, regular rhythm, no murmurs and peripheral pulses 2+ throughout GI normal to inspection, nondistended, normoactive bowel sounds, soft to palpation, non-tender and non-distended Back/Spine normal ROM Extremity normal to inspection, full ROM and no pedal edema Skin no rashes or lesions noted Psych mental status grossly normal Results Lab / Micro Data 08/25/25 11:30 08/25/25 11:30 Labs: Laboratory Results - last 24 hr 08/25/25 11:30: WBC 14.6 H, RBC 2.11 L, Hgb 5.9 L*, Hct 19.1 L, MCV 90.5, MCH 28.0, MCHC 30.9 L, RDW Std Deviation 44.5 H, RDW Coeff of Marilyn 13.5, Plt Count 473 H, MPV 8.1, Immature Gran % (Auto) 1.100 H, Neut % (Auto) 73.2 H, Lymph % (Auto) 12.6 L, [place] % (Auto) 10.2 H, Eos % (Auto) 2.3, Baso % (Auto) 0.6, Absolute Neuts (auto) 10.7 H, Absolute Lymphs (auto) 1.84, Nucleated RBC % 0, PT 13.9, INR 1.1, APTT 47.2 H, Sodium 139, Potassium 4.0, Chloride 101, Carbon Dioxide 28.5, Anion Gap 9, BUN 36 H, Creatinine 1.92 H, Estim Creat Clear Calc 29.02 L, Est GFR (MDRD) Non-Af 33 L, BUN/Creatinine Ratio 18.5, Glucose 113 H, Lactic Acid 1.9, Calcium 8.3, Total Bilirubin 0.25, AST 12, ALT < 5, Alkaline Phosphatase 66, Total Protein 6.3, Albumin 2.9 L, Globulin 3.4, Albumin/Globulin Ratio 0.9, Blood Type A NEGATIVE, Antibody Screen NEGATIVE, Crossmatch See Detail Micro: Microbiology 08/25/25 11:45 Stool Stool Occult Blood (THUAN) - Final Occult Blood Positive Imaging Radiology Impression Abdomen/Pelvis CTA 08/25/25 12:20 IMPRESSION: No contrast extravasation in the bowel lumen. No free fluid in the abdomen and pelvis. Asymmetric wall thickening of the cecum concerning for colon cancer. Filling defect in the left lobar pulmonary artery consistent with pulmonary embolism. No evidence of right heart strain. Findings were discussed with Dave Raphael 08/25/2025 12:48 p.m. Reading Location: [facility] Assessment & Plan Assessment/Plan (1) GI bleed: (2) Pulmonary embolism: (3) Acute on chronic blood loss anemia: PLAN: Plan Patient is an 89-year-old male who presented to [facility] ED on 08/25/2025 with acute on chronic anemia and dark stools. 1. Acute on chronic blood loss anemia suspected secondary to lower GI bleed due to possible cecal cancer ? Admit under inpatient status to PCU. GI and general surgery consulted. Palliative care consulted. See HPI for further details. In short, patient was found on CT abdomen pelvis to have a possible right sided colonic malignancy back in late March and plan was for outpatient colonoscopy, but this has not happened yet apparently due to concern for patient being able to tolerate a colonoscopy given his HFrEF and debility. Hemoglobin 5.9 on admit, down from 6.4 on 08/18 and 7.1 on 08/11. CTA abdomen pelvis on this admit showed asymmetric wall thickening of the cecum concerning for colon cancer. Will transfuse 2 units of blood today and follow-up CBC tonight and again tomorrow morning. Dr. Chen will see the patient and determine timing of colonoscopy; will add patient on clear liquid diet today and then n.p.o. at midnight in case of possible scope tomorrow. Dr. Rivera saw the patient in the ED and noted patient should be a candidate for colonic resection if needed depending on formal diagnosis. Notably, palliative care saw the patient during hospitalization at [facility] in March-April and patient remained full code. Patient's son and daughter are both mackey of assistant attorney general, and patient has fairly poor health literacy and son and daughter help with medical decision making. 2. Acute PE ? Vascular surgery consulted. CTA abdomen pelvis showed a filling defect in the left lobar pulmonary artery consistent with PE with no evidence of right heart strain. Patient stable on room air at rest and asymptomatic. No lower extremity pain or swelling noted but suspect DVT/PE is secondary to malignancy. Plan is for IVC filter placement with Dr. Dominguez this afternoon, will follow-up on result. Echocardiogram and venous duplex ultrasound ordered. 3. Acute on chronic debility ? PT/OT/case management consulted. Patient required SNF placement after hospitalization at [facility] in March-April. He was living at home prior to that. He has now moved into assisted living at the [facility]. Appreciate therapy recommendations. 4. Chronic HFrEF, hypertension, hyperlipidemia ? Echo in late March showed EF 20 to 25% with global LV dysfunction, no significant valvular disease. Repeat echo ordered as above. Normotensive on admission and euvolemic. Okay to continue home Toprol, torsemide and atorvastatin. 5. CKD stage IIIb ? Creatinine 1.92 on admit, stable at baseline. Follow-up daily BMP and monitor urine output. 6. GERD ? Continue home PPI. DVT prophylaxis: SCDs CODE STATUS: Full code, verified Expected disposition: TBD Total clinical time spent by myself addressing the patient's medical issues, reviewing all the data, and collaborating with patient's care team: 84 minutes. Charges/Coding Visit Charges Inpatient E&M: 88605 Init Hosp L3
--- NOTE | 2025-08-25 15:53 | CASEMGMT ---
Social Work Patient states that he is currently living at [facility] and plans to return when medically ready. Rekha Cameron, CUT OFF MACHINE OPERATOR, OUTSOLE BEVELER
--- NOTE | 2025-08-25 15:57 | ED.RN ---
initial TAR vitals entered in error. RR 16 per monitor.
--- NOTE | 2025-08-25 16:00 | EX.PCM.CON.S ---
Assessment & Plan Assessment/Plan (1) Pulmonary embolism: (2) GI bleed: PLAN: Plan Patient had pulmonary embolism incidentally identified on CTA Abd. He presents with active GI bleeding and acute anemia precluding the use of anticoagulation. CTA demonstrated concern for possible colon cancer which places him at increased risk for recurrent DVT/PE. He is an appropriate candidate for IVC filter insertion. I discussed with the patient IVC filter insertion indications, risks, benefits, alternatives, and recovery. He acknowledged understanding of all of the above and does wish to proceed. He notes he signs his own consents but still wants his daughter and son informed of the procedure. I did contact his daughter, Anahy, and his son, Bereket, via phone and informed them of the procedure indications and details. I addressed all questions/concerns to their apparent satisfaction and all were agreeable. Plan is for IVC filter placement in the cath lab radiology technician later this afternoon. HPI Consult Data Date of Consult: 08/25/25 HPI Narrative HPI Narrative: MARY CHARLES, is a 89 M who [facility] with acute on chronic anemia on outpatient labs completed at [facility] with Hgb 5.6 and history of known GI bleeding and recently darker stools. Anemia was confirmed with Hgb here of 5.9. He was transfused PRBC to address anemia and he underwent CTA Abd with contrast for further evaluation. CTA revealed asymmetric wall thickening of the cecum concerning for colon cancer and incidental finding of PE in the left lobar pulmonary artery. As this was an abdominal study his lungs were not fully assessed and due to his CKD cannot repeat CTA Chest with contrast immediately. Fortunately, he seems to be asymptomatic from the PE; he is oxygenating well on room air, he denies any SOB or CP. We are consulted for consideration of IVC filter placement in light of his PE and ongoing GI bleeding. He reports no known history of DVT or PE. He cannot recall any recent episodes of SOB, CP and currently denies any of these symptoms. He denies new/worsening lower extremity edema, pain, redness, or warmth. He lives at [facility], is not particularly active but also no recent injuries or significant illness by report. He does report possibly newer diagnosis of CHF, had some leg swelling with that but it resolved with diuretic therapy. [facility] Medical History (Updated 08/25/25 @ 17:18 by NAHUM Murrell) Anemia Kidney disease Coronary artery disease Congestive heart failure (CHF) Home Medications ?Medication ?Instructions ?Recorded ?Last Taken ?Type atorvastatin 20 mg tablet 20 mg PO DAILY 08/25/25 08/24/25 History ferrous sulfate 325 mg (65 mg 325 mg PO DAILY 08/25/25 08/24/25 History iron) tablet (FeroSul) metoprolol succinate 25 mg 25 mg PO DAILY 08/25/25 08/25/25 History tablet,extended release 24 hr omeprazole 40 mg capsule,delayed 40 mg PO DAILY 08/25/25 Unknown History release torsemide 20 mg tablet 20 mg PO DAILY 08/25/25 08/25/25 History Allergy/AdvReac Type Severity Reaction Status Date / Time No Known Allergies Allergy Verified 08/25/25 10:29 Family History unable to obtain Surgical History no surgical history Social History housing: long term number of children: 2 financial difficulty paying for basics: not applicable current occupational status: retired current occupational exposures/hazards: No pets and animals: No history of recent travel: No sexually active: No do you think of yourself as: straight/heterosexual current gender identity: male Smoking Status: Never smoker Physical Exam Const alert, oriented x3 and no apparent distress General Appearance: cooperative and comfortable HEENT normocephalic, head/scalp atraumatic, hearing grossly normal bilaterally, external ears normal and external nose normal Eyes General Eye: normal appearance of both eyes Neck General: normal visual inspection and trachea midline Resp normal respiratory effort, normal air movement, no retractions and no use of accessory muscles Effort and Inspection: able to speak in complete sentences; Negative for labored, grunting, stridor or audible wheezes Cardio regular rate and regular rhythm Extremity Extremity Narrative: trace edema Skin no rashes or lesions noted Trauma: no lacerations or abrasions Neuro oriented x3 and moves all extremities Speech: speech normal Psych mental status grossly normal Appearance: grossly normal Attitude: calm and engaged Activity / Motor Behavior: appropriate eye contact Speech: normal speech Lab / Micro Data 08/25/25 11:30 08/25/25 11:30 Labs: Laboratory Results - last 24 hr 08/25/25 11:30: WBC 14.6 H, RBC 2.11 L, Hgb 5.9 L*, Hct 19.1 L, MCV 90.5, MCH 28.0, MCHC 30.9 L, RDW Std Deviation 44.5 H, RDW Coeff of Marilyn 13.5, Plt Count 473 H, MPV 8.1, Immature Gran % (Auto) 1.100 H, Neut % (Auto) 73.2 H, Lymph % (Auto) 12.6 L, Dundy % (Auto) 10.2 H, Eos % (Auto) 2.3, Baso % (Auto) 0.6, Absolute Neuts (auto) 10.7 H, Absolute Lymphs (auto) 1.84, Nucleated RBC % 0, PT 13.9, INR 1.1, APTT 47.2 H, Sodium 139, Potassium 4.0, Chloride 101, Carbon Dioxide 28.5, Anion Gap 9, BUN 36 H, Creatinine 1.92 H, Estim Creat Clear Calc 29.02 L, Est GFR (MDRD) Non-Af 33 L, BUN/Creatinine Ratio 18.5, Glucose 113 H, Lactic Acid 1.9, Calcium 8.3, Total Bilirubin 0.25, AST 12, ALT < 5, Alkaline Phosphatase 66, Total Protein 6.3, Albumin 2.9 L, Globulin 3.4, Albumin/Globulin Ratio 0.9, Blood Type A NEGATIVE, Antibody Screen NEGATIVE, Crossmatch See Detail Micro: Microbiology 08/25/25 11:45 Stool Stool Occult Blood (THUAN) - Final Occult Blood Positive Imaging Radiology Impression Abdomen/Pelvis CTA 08/25/25 12:20 IMPRESSION: No contrast extravasation in the bowel lumen. No free fluid in the abdomen and pelvis. Asymmetric wall thickening of the cecum concerning for colon cancer. Filling defect in the left lobar pulmonary artery consistent with pulmonary embolism. No evidence of right heart strain. Findings were discussed with Dave Raphael 08/25/2025 12:48 p.m. Reading Location: [id number] Charges/Coding Visit Charges Inpatient E&M: 34690 Init Hosp L1
--- NOTE | 2025-08-25 17:43 | VDLE_ITS ---
Reason For Study Reason For Study: PE RIGHT LEFT GSV is normal. GSV is normal. CFV is compressible, spontaneous, phasic, competent CFV is compressible, spontaneous, phasic, competent, and demonstrates normal augmentation. and demonstrates normal augmentation. FV is compressible, spontaneous, phasic, competent FV is compressible, spontaneous, phasic, competent and and demonstrates normal augmentation. demonstrates normal augmentation. POP V is compressible, spontaneous, phasic, competent POP V is compressible, spontaneous, phasic, competent and demonstrates normal augmentation. and demonstrates normal augmentation. T/P Trunk is compressible. T/P Trunk is compressible. PTV is compressible. PTV is compressible. RT PerV is compressible. LT PerV is compressible. Procedure Acute deep vein thrombosis is noted in the This is a venous duplex using B-mode, color flow and Gastrocnemius V. It is dilated and NONCOMPRESSIBLE. spectral Doppler. Exam performed portable in patient room. The exam was diagnostic. A preliminary report was called and/or faxed to Jessica - PCU hand sander. VL/Venous Duplex US - Peter Extrem Interpretation Summary Acute deep vein thrombosis is noted in the left gastrocnemius vein. Deep veins of the right lower extremity are patent and compressible segmentally . There is no evidence of right lower extremity deep vein thrombosis. The bilateral great saphenous veins appear saleem nt and compressible segmentally. Ordering Physician: Armando Norton Referring Physician: Negro Messer Performed By: Jon Hammond RVT
--- NOTE | 2025-08-25 18:36 | CON.PCM.GI_ITS ---
HPI Consult Data Date of Consult: 08/25/25 HPI Narrative HPI Narrative: The patient is an 89-year-old male presenting with a known history of chronic anemia and dark stools, and has a new diagnosis of a pulmonary embolism in addition to an abnormal CT scan concerning for colon cancer .? He has a past medical history of Coronary Artery Disease (CAD), Congestive Heart Failure (CHF), and kidney disease, presenting for evaluation of a gastrointestinal (GI) bleed and [id number] anemia. He reports having dark stools for quite some time and states he has a known GI bleed. He is scheduled to see a GI physician at the [facility] but has not yet had a colonoscopy due to being deemed a poor candidate given his heart history. He is not currently on blood thinners. Basic blood work performed today revealed a hemoglobin of 5.6 g/dL. He reports occasional right lower quadrant (RLQ) abdominal pain. He denies any fever, chills, shortness of breath (SOB), chest pain, lightheadedness, fatigue, constipation, diarrhea, or dysuria.? * Labs:?Hemoglobin (Hgb) 5.6 g/dL (other labs would typically be included here). * Imaging:?CT/CTA Abdomen/Pelvis with/without contrast impression: * No contrast extravasation into the bowel lumen. * No free fluid in the abdomen and pelvis. * Asymmetric wall thickening of the cecum concerning for colon cancer. * Filling defect in the left lobar pulmonary artery consistent with pulmonary embolism. No evidence of right heart strain.? [facility] Medical History Anemia Kidney disease Coronary artery disease Congestive heart failure (CHF) Home Medications ?Medication ?Instructions ?Recorded ?Last Taken ?Type atorvastatin 20 mg tablet 20 mg PO DAILY 08/25/2508/09 History ferrous sulfate 325 mg (65 mg 325 mg PO DAILY 08/25/25 08/24/25 History iron) tablet (FeroSul) metoprolol succinate 25 mg 25 mg PO DAILY 08/25/25 History tablet,extended release 24 hr omeprazole 40 mg capsule,delayed 40 mg PO DAILY Unknown History release torsemide 20 mg tablet 20 mg PO DAILY 08/25/2508/09 History Allergy/AdvReac Type Severity Reaction Status Date / Time No Known Allergies Allergy Verified 08/25/25 10:29 Family History no significant family his Surgical History no surgical history Social History housing: [employer] number of children: 2 current occupational status: retired current occupational exposures/hazards: No pets and animals: No history of recent travel: No sexually active: No Smoking Status: Former smoker ROS Constitutional Constitutional: Denies fatigue, fever(s), poor appetite, weight gain or weight loss Gastrointestinal Gastrointestinal: Denies belching, bloating, change in bowel habits, change in stool character, chewing difficulty, coffee ground emesis, constipation, cramping, diarrhea, dyspepsia, dysphagia, early satiety, excessive flatus, fecal incontinence, heartburn, hematemesis, hematochezia, hemorrhoids, loose stools, melena, nausea, odynophagia, rectal bleeding, tenesmus, vomiting or weight changes Physical Exam Const alert, oriented x3, no apparent distress and healthy appearing General Appearance: cooperative GI normal to inspection, nondistended, normoactive bowel sounds, soft to palpation, non-tender and non-distended Percussion: normal to percussion Rectal Exam: deferred Lab / Micro Data 08/25/25 11:30 08/25/25 11:30 Labs: Laboratory Results - last 24 hr 08/25/25 11:30: WBC 14.6 H, RBC 2.11 L, Hgb 5.9 L*, Hct 19.1 L, MCV 90.5, MCH 28.0, MCHC 30.9 L, RDW Std Deviation 44.5 H, RDW Coeff of Marilyn 13.5, Plt Count 473 H, MPV 8.1, Immature Gran % (Auto) 1.100 H, Neut % (Auto) 73.2 H, Lymph % (Auto) 12.6 L, Anson % (Auto) 10.2 H, Eos % (Auto) 2.3, Baso % (Auto) 0.6, A bsolute Neuts (auto) 10.7 H, Absolute Lymphs (auto) 1.84, Nucleated RBC % 0, PT 13.9, INR 1.1, APTT 47.2 H, Sodium 139, Potassium 4.0, Chloride 101, Carbon Dioxide 28.5, Anion Gap 9, BUN 36 H, Creatinine 1.92 H, Estim Creat Clear Calc 29.02 L, Est GFR (MDRD) Non-Af 33 L, BUN/Creatinine Ratio 18.5, Glucose 113 H, Lactic Acid 1.9, Calcium 8.3, Total Bilirubin 0.25, AST 12, ALT < 5, Alkaline Phosphatase 66, Total Protein 6.3, Albumin 2.9 L, Globulin 3.4, Albumin/Globulin Ratio 0.9, Blood Type A NEGATIVE, Antibody Screen NEGATIVE, Crossmatch See Detail Micro: Microbiology 08/25/25 11:45 Stool Stool Occult Blood (THUAN) - Final Occult Blood Positive Imaging Radiology Impression Abdomen/Pelvis CTA 08/25/25 12:20 IMPRESSION: No contrast extravasation in the bowel lumen. No free fluid in the abdomen and pelvis. Asymmetric wall thickening of the cecum concerning for colon cancer. Filling defect in the left lobar pulmonary artery consistent with pulmonary embolism. No evidence of right heart strain. Findings were discussed with Dave Raphael 08/25/2025 12:48 p.m. Reading Location: [facility] Assessment & Plan Assessment/Plan (1) Acute on chronic blood loss anemia: (2) GI bleed: (3) Pulmonary embolism: PLAN: Assessment * Severe [id number] iron deficiency anemia?secondary to chronic GI bleeding, likely from a colonic source. 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 * Acute pulmonary embolism (PE)?in the left lobar pulmonary artery, newly diagnosed on CT/CTA. * History of CAD, CHF, kidney disease, which complicate management and procedural suitability. * Status post IVC filter placement?(procedure performed following PE diagnosis).? Plan * Anemia/GI Bleed: * Transfuse packed red blood cells (PRBCs) immediately to stabilize hemoglobin to target goal (e.g., Hgb >7). * Patient should undergo further management of the GI bleed and evaluation of the cecal mass. I discussed discuss the possibility of an expedited, careful endoscopy and colonoscopy, potentially with a modified preparation regimen, to biopsy/stage the mass, given the high suspicion of malignancy and the need for definitive diagnosis. * Pulmonary Embolism: * Continue current management following consultation with Vascular Surgery and the placement of the IVC filter. * I will discuss anticoagulation options with the patient and consulting teams, weighing the risk of further PE against the active GI bleeding source. * Oncology: * Consult Oncology/General Surgery once a definitive diagnosis is made to discuss management and treatment options for the suspected colon cancer, considering the patient's age and comorbidities. * Portions of this note were generated using voice recognition software ([email or web address] Dictation). I have reviewed the contents and every effort has been made to ensure accuracy; however, inadvertent errors in grammar, spelling, punctuation, or word choice may occur, that were not noted before signing the document and should not alter the intended clinical meaning. Charges/Coding Visit Charges Inpatient E&M: 90236 Init Hosp L3
--- NOTE | 2025-08-25 18:37 | ECHOCS_ITS ---
Reason For Study Reason For Study: Pulmonary Embolism Procedure This was a 2D Doppler, Color Flow transthoracic echocardiogram. The patient is in sinus rhythm. The study was technically difficult. Exam performed portable in patient room. Left Ventricle Normal size and thickness. Moderate global LV hypokinesis. Estimated LVEF 40%. Stage I diastolic dysfunction. Right Ventricle Normal right ventricle. Atria The left and right atria are normal. Mitral Valve Moderate (2+) mitral valve insufficiency. Tricuspid Valve Mild (1+) tricuspid valve insufficiency. Normal pulmonary artery pressure. Aortic Valve Aortic sclerosis, no stenosis. Pulmonic Valve Mild (1+) pulmonic valve insufficiency. Great Vessels Normal sized aortic root. Pericardium/Pleural No pericardial effusion. Medication Diluted definity 1ml given slow IV push to enhance endocardial definition. MMode/2D Measurements & Calculations LVIDd: 5.4 cm IVSd: 1.1 cm Ao root diam: 3.7 cm LVIDs: 4.5 cm LVPWd: 1.1 cm RVDd: 3.4 cm FS: 15.6 % LAV(MOD-bp): 59.2 ml LVAd ap4: 47.0 cm2 SV(MOD-sp4): 70.7 ml LAV(MOD-bp) Indexed: 29.0 ml/m2 LVLd ap4: 9.1 cm SI(MOD-sp4): 34.7 ml/m2 LAV(MOD-sp2): 59.9 ml EDV(MOD-sp4): 196.1 ml LAV(MOD-sp4): 58.1 ml EDV(sp4-el): 206.6 ml LVAs ap4: 34.5 cm2 LVLs ap4: 7.8 cm ESV(MOD-sp4): 125.4 ml ESV(sp4-el): 129.0 ml EF(MOD-sp4): 36.0 % EF(sp4-el): 37.6 % SV(sp4-el): 77.6 ml LA A4 area: 20.5 cm2 LA dimension(2D): 3.7 cm RA A4 area: 18.9 cm2 Time Measurements MV dec time: 0.40 sec Doppler Measurements & Calculations MV E max jay: 83.5 cm/sec Lat Peak E' Jay: 7.6 cm/sec Med Peak E' Jay: 4.5 cm/sec MV A max jay: 130.9 cm/sec E/E' lat: 11.1 E/E' med: 18.5 MV E/A: 0.64 MV V2 max: 158.8 cm/sec MV P1/2t max jay: 109.9 cm/sec Ao V2 max: 195.9 cm/sec MV max P.1 mmHg MV P1/2t: 132.5 msec Ao max P.3 mmHg MV V2 mean: 67.5 cm/sec MV dec slope: 243.1 cm/sec2 Ao V2 mean: 126.4 cm/sec MV mean P.3 mmHg MVA(P1/2t): 1.7 cm2 Ao mean P.3 mmHg MV V2 VTI: 56.6 cm Ao V2 VTI: 40.9 cm AV (velocity ratio): 0.69 LV V1 max: 127.2 cm/sec MR max ajy: 451.4 cm/sec PA V2 max: 128.6 cm/sec LV V1 max P.5 mmHg MR max P.5 mmHg LV V1 mean P.7 mmHg LV V1 mean: 90.7 cm/sec LV V1 VTI: 28.3 cm TR max jay: 252.1 cm/sec TR max P.4 mmHg ECHO/Echo Complete W/ Contrast Interpretation Summary The study was technically difficult. Moderate global LV hypokinesis. Estimated LVEF 40-45%. Stage I diastolic dysfun ction. Moderate (2+) mitral valve insufficiency. Mild (1+) tricuspid valve insufficiency. Aortic sclerosis, no stenosis. Mild (1+) pulmonic valve insufficiency. Ordering Physician: Armando Norton Performed By: Dave Aaron RCS
--- NOTE | 2025-08-25 18:50 | PCM.OPRPT ---
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 CT scan of the abdomen incidentally revealed pulmonary emboli and given his current bleeding situation he is felt and appropriate for anticoagulation. He is taken now for emergent inferior vena cava filter placement. Description of procedure: Upon obtaining informed consent and verification correct patient procedure site the patient was taken to the [facility] where he was positioned prepped and draped in usual sterile fashion. Time was performed, sedation administered with Versed and fentanyl. Skin overlying the right common femoral vein was anesthetized 1% lidocaine the vessel accessed under ultrasound guidance with a micropuncture needle wire. This then exchanged for micropuncture sheath through which a hand-injection ilio caval venogram was performed revealing satisfactory position with no extravasation or dissection. This also confirmed patent right iliac vein and vena cava which appear to be normal in caliber. Through the micropuncture sheath a J-wire was advanced and the micropuncture sheath exchanged for the Bard filter delivery system advanced to the L3 vertebral body. From this position subtraction venacavogram was performed revealing normal caliber vena cava which was patent without any evidence of thrombus and revealed the confluence of the renal veins. The renal vein position was then marked on the screen and the filter advanced into position and deployed below the lowest renal vein. Completion venacavogram was then performed revealed satisfactory positioning with no significant tilt. The sheath was then withdrawn a minute pressure held until hemostasis was observed. The patient was then taken to the PCU for bedrest and recovery. Surgical Findings: See above Complications Complications: No
[2025-08-25 20:23] LABS: Hematocrit 24.5 % (40-54); Hemoglobin 7.7 g/dL (13.0-16.5); Mean Corp Hgb Conc 31.4 g/dL (32-36); Mean Corpuscular Volume 88.4 fL (80-94); Mean Platelet Vol. 8.1 fl (6.2-12.0); Platelet Count 465 K/mm3 (150-450); RBC Distribution Width CV 14.4 % (11.6-14.6); RBC Distribution Width SD 46.5 fl (35.1-43.9); Red Blood Count 2.77 M/mm3 (4.6-6.2); White Blood Count 14.6 K/mm3 (4.4-11.0)
[2025-08-25] MEDS: Polyethylene Glycol 3350 BOWEL PREP PO (23:22)
[2025-08-26] VITALS (11 sets, daily range): BP systolic 103–114; BP diastolic 48–78; PULSE 53–82; RESP 16–20; TEMP 36.3–36.9; O2SAT 94–99
--- NOTE | 2025-08-26 05:55 | EKG12_ITS ---
Test Reason : AM EKG Blood Pressure : */* mmHG Vent. Rate : 54 BPM Atrial Rate : 54 BPM P-R Int : 112 ms QRS Dur : 110 ms QT Int : 452 ms P-R-T Axes : -3 -53 27 degrees QTcB Int : 428 ms Sinus bradycardia with Premature atrial complexes Left anterior fascicular block Abnormal ECG No previous ECGs available Confirmed by Nelson Duffy ([id number]), news video editor LEORA CAMPBELL ([id number]) on 08/26/2025 10:22:39 AM Referred By: Confirmed By: Nelson Duffy
[2025-08-26 06:11] LABS: Hematocrit 26.9 % (40-54); Hemoglobin 8.5 g/dL (13.0-16.5); Mean Corp Hgb Conc 31.6 g/dL (32-36); Mean Corpuscular Volume 87.3 fL (80-94); Mean Platelet Vol. 8.2 fl (6.2-12.0); Platelet Count 532 K/mm3 (150-450); RBC Distribution Width CV 14.7 % (11.6-14.6); RBC Distribution Width SD 47.3 fl (35.1-43.9); Red Blood Count 3.08 M/mm3 (4.6-6.2); White Blood Count 15.7 K/mm3 (4.4-11.0)
[2025-08-26 06:23] LABS: Prothrombin Time (Protime)PT. 13.5 SECONDS (11.7-14.9)
[2025-08-26 06:24] LABS: Partial Thromboplast Time 31.0 Seconds (24.1-36.2)
[2025-08-26 06:38] LABS: Anion Gap 12 (5-15); BUN 31 mg/dL (4-19); BUN/Creat Ratio 16.8 RATIO (10-20); Calcium,Total 9.2 mg/dL (7.6-11.0); Carbon Dioxide 24.7 mmol/L (21.0-32.0); Chloride 99 mmol/L (98-108); Estimated Creatinine Clearance 29.38 ml/min (50-250); Glucose 95 mg/dL (70-99); Potassium 3.6 mmol/L (3.3-5.1)
--- NOTE | 2025-08-26 06:44 | PN.SURG_ITS ---
Subjective Subjective I saw Mr. Lennon this morning at bedside, he was resting comfortably in bed and just woke up. He reports no pain at the R groin access site, no new lower extremity pain/swelling, and no new abdominal pain. He is scheduled for colonoscopy today. Objective Data Objective Data Vital Signs: Vital Signs Temp Pulse Resp BP Pulse Ox O2 Del Method 97.8 F 53 L 18 112/63 99 Room Air 08/26/25 03:45 08/26/25 03:45 08/26/25 03:45 08/26/25 03:45 08/26/25 03:45 08/26/25 03:45 Oxygen Delivery Method Room Air Weight: 199 lb 1.239 oz Body Mass Index (BMI) 30.2 Intake & Output: Intake and Output for Last 24 Hours 08/24/25 08/25/25 08/26/25 23:59 23:59 23:59 Intake Total 1800 / 1800 Output Total 300 / 300 Balance 1800 / 1800 -300 / -300 Lab / Micro Data 08/26/25 05:22 08/26/25 05:22 Labs: Laboratory Results - last 24 hr 08/25/25 11:30: WBC 14.6 H, RBC 2.11 L, Hgb 5.9 L*, Hct 19.1 L, MCV 90.5, MCH 28.0, MCHC 30.9 L, RDW Std Deviation 44.5 H, RDW Coeff of Marilyn 13.5, Plt Count 473 H, MPV 8.1, Immature Gran % (Auto) 1.100 H, Neut % (Auto) 73.2 H, Lymph % (Auto) 12.6 L, Payne % (Auto) 10.2 H, Eos % (Auto) 2.3, Baso % (Auto) 0.6, A bsolute Neuts (auto) 10.7 H, Absolute Lymphs (auto) 1.84, Nucleated RBC % 0, PT 13.9, INR 1.1, APTT 47.2 H, Sodium 139, Potassium 4.0, Chloride 101, Carbon Dioxide 28.5, Anion Gap 9, BUN 36 H, Creatinine 1.92 H, Estim Creat Clear Calc 29.02 L, Est GFR (MDRD) Non-Af 33 L, BUN/Creatinine Ratio 18.5, Glucose 113 H, Lactic Acid 1.9, Calcium 8.3, Total Bilirubin 0.25, AST 12, ALT < 5, Alkaline Phosphatase 66, Total Protein 6.3, Albumin 2.9 L, Globulin 3.4, Albumin/Globulin Ratio 0.9, Blood Type A NEGATIVE, Antibody Screen NEGATIVE, Crossmatch See Detail 08/25/25 19:58: WBC 14.6 H, RBC 2.77 L, Hgb 7.7 L, Hct 24.5 L, MCV 88.4, MCH 27.8, MCHC 31.4 L, RDW Std Deviation 46.5 H, RDW Coeff of Marilyn 14.4, Plt Count 465 H, MPV 8.1 08/26/25 05:22: WBC 15.7 H, RBC 3.08 L, Hgb 8.5 L, Hct 26.9 L, MCV 87.3, MCH 27.6, MCHC 31.6 L, RDW Std Deviation 47.3 H, RDW Coeff of Marilyn 14.7 H, Plt Count 532 H, MPV 8.2, PT 13.5, INR 1.0, APTT 31.0, Sodium 136, Potassium 3.6, Chloride 99, Carbon Dioxide 24.7, Anion Gap 12, BUN 31 H, Creatinine 1.86 H, Estim Creat Clear Calc 29.38 L, Est GFR (MDRD) Non-Af 34 L, BUN/Creatinine Ratio 16.8, Glucose 95, Calcium 9.2 Micro: Microbiology 08/25/25 11:45 Stool Stool Occult Blood (THUAN) - Final Occult Blood Positive Radiography Diagnostic Testing: Radiology Impression Abdomen/Pelvis CTA 08/25/25 12:20 IMPRESSION: No contrast extravasation in the bowel lumen. No free fluid in the abdomen and pelvis. Asymmetric wall thickening of the cecum concerning for colon cancer. Filling defect in the left lobar pulmonary artery consistent with pulmonary embolism. No evidence of right heart strain. Findings were discussed with Dave Raphael 08/25/2025 12:48 p.m. Reading Location: [facility] Physical Exam Const alert, oriented x3 and no apparent distress General Appearance: cooperative and comfortable HEENT normocephalic, head/scalp atraumatic, hearing grossly normal bilaterally, external ears normal and external nose normal Eyes General Eye: normal appearance of both eyes Neck General: normal visual inspection and trachea midline Resp normal respiratory effort, normal air movement, no retractions and no use of accessory muscles Effort and Inspection: able to speak in complete sentences; Negative for labored, grunting, stridor or audible wheezes Cardio regular rate and regular rhythm Extremity Extremity Narrative: trace edema R groin with dressing C/D/I. No hematoma, ecchymosis, bleeding. Skin no rashes or lesions noted Trauma: no lacerations or abrasions Neuro oriented x3 and moves all extremities Speech: speech normal Psych mental status grossly normal Appearance: grossly normal Attitude: calm and engaged Activity / Motor Behavior: appropriate eye contact Speech: normal speech Assessment & Plan Assessment/Plan (1) Pulmonary embolism: (2) GI bleed: PLAN: Plan He is s/p IVC filter insertion. Procedure was without complication. R groin puncture site is satisfactory in appearance without hematoma. OK to remove groin dressing tomorrow. From vascular standpoint, OK for normal showers, no submerging the site for 2 weeks. He should not lift >20 pounds for 2 weeks, otherwise OK for activity as tolerated. Plan for outpatient follow-up in the office in 3-4 weeks. Charges/Coding Visit Charges Inpatient E&M: 59897 Subs Hosp L1
[2025-08-26 07:01] LABS: AST(SGOT) 15 U/L (<=37); Alanine Aminotransfer ALT/SGPT 7 U/L (<=46); Albumin, Serum 3.1 g/dL (3.4-4.8); Alkaline Phosphatase 65 U/L (40-129); Bilirubin, Direct 0.43 mg/dL (0.00-0.30); Globulin 2.7 g/dL (2.2-4.2)
--- NOTE | 2025-08-26 07:21 | EX.PCM.CON.S ---
Assessment & Plan Assessment/Plan (1) Acute on chronic blood loss anemia: PLAN: The patient has CT which showed irregular cecum concerning for colon cancer. Patient is also severely anemic with positive fecal occult blood. The patient also had CTA of the chest which showed PE. The patient underwent filter placement yesterday. Patient is going to have colonoscopy by GI for biopsies. As long as biopsies and visualization confirmed that there is a colon cancer I will look for time to do a right hemicolectomy. This may be an outpatient surgery once his hemoglobin has been returned to normal. He was transfused yesterday and responded appropriately. The patient is very concerned with his heart and he does not think his heart will withstand surgery. He may need a cardiology consult for clearance. Conrad Rivera MD Pager: [facility] [address] [place] [address], [address] [place] [address] Office: HPI Consult Data Date of Consult: 08/26/25 HPI Narrative HPI Narrative: MARY CHARLES, is a 89 M who presents with some abdominal pain. The patient had a CTA of the chest abdomen pelvis which which revealed irregularity in the cecum concerning for cancer. Patient was also severely anemic on presentation. He reports some right abdominal pain. [facility] Medical History Anemia Kidney disease Coronary artery disease Congestive heart failure (CHF) Home Medications ?Medication ?Instructions ?Recorded ?Last Taken ?Type atorvastatin 20 mg tablet 20 mg PO DAILY 08/25/25 08/24/25 History ferrous sulfate 325 mg (65 mg 325 mg PO DAILY 08/25/25 08/24/25 History iron) tablet (FeroSul) metoprolol succinate 25 mg 25 mg PO DAILY 08/25/25 08/25/25 History tablet,extended release 24 hr omeprazole 40 mg capsule,delayed 40 mg PO DAILY 08/25/25 Unknown History release torsemide 20 mg tablet 20 mg PO DAILY 08/25/25 08/25/25 History Allergy/AdvReac Type Severity Reaction Status Date / Time No Known Allergies Allergy Verified 08/25/25 10:29 Family History no significant family his Surgical History no surgical history Social History housing: [employer] number of children: 2 current occupational status: retired current occupational exposures/hazards: No pets and animals: No history of recent travel: No sexually active: No Smoking Status: Former smoker Physical Exam Const alert and oriented x3 HEENT normocephalic Eyes PERRL Resp normal respiratory effort Cardio Rate: regular rate Rhythm: regular rhythm GI soft to palpation and non-tender Extremity normal to inspection Lab / Micro Data 08/26/25 05:22 08/26/25 05:22 Labs: Laboratory Results - last 24 hr 08/25/25 11:30: WBC 14.6 H, RBC 2.11 L, Hgb 5.9 L*, Hct 19.1 L, MCV 90.5, MCH 28.0, MCHC 30.9 L, RDW Std Deviation 44.5 H, RDW Coeff of Marilyn 13.5, Plt Count 473 H, MPV 8.1, Immature Gran % (Auto) 1.100 H, Neut % (Auto) 73.2 H, Lymph % (Auto) 12.6 L, [place] % (Auto) 10.2 H, Eos % (Auto) 2.3, Baso % (Auto) 0.6, Absolute Neuts (auto) 10.7 H, Absolute Lymphs (auto) 1.84, Nucleated RBC % 0, PT 13.9, INR 1.1, APTT 47.2 H, Sodium 139, Potassium 4.0, Chloride 101, Carbon Dioxide 28.5, Anion Gap 9, BUN 36 H, Creatinine 1.92 H, Estim Creat Clear Calc 29.02 L, Est GFR (MDRD) Non-Af 33 L, BUN/Creatinine Ratio 18.5, Glucose 113 H, Lactic Acid 1.9, Calcium 8.3, Total Bilirubin 0.25, AST 12, ALT < 5, Alkaline Phosphatase 66, Total Protein 6.3, Albumin 2.9 L, Globulin 3.4, Albumin/Globulin Ratio 0.9, Blood Type A NEGATIVE, Antibody Screen NEGATIVE, Crossmatch See Detail 08/25/25 19:58: WBC 14.6 H, RBC 2.77 L, Hgb 7.7 L, Hct 24.5 L, MCV 88.4, MCH 27.8, MCHC 31.4 L, RDW Std Deviation 46.5 H, RDW Coeff of Marilyn 14.4, Plt Count 465 H, MPV 8.1 08/26/25 05:22: WBC 15.7 H, RBC 3.08 L, Hgb 8.5 L, Hct 26.9 L, MCV 87.3, MCH 27.6, MCHC 31.6 L, RDW Std Deviation 47.3 H, RDW Coeff of Marilyn 14.7 H, Plt Count 532 H, MPV 8.2, PT 13.5, INR 1.0, APTT 31.0, Sodium 136, Potassium 3.6, Chloride 99, Carbon Dioxide 24.7, Anion Gap 12, BUN 31 H, Creatinine 1.86 H, Estim Creat Clear Calc 29.38 L, Est GFR (MDRD) Non-Af 34 L, BUN/Creatinine Ratio 16.8, Glucose 95, Calcium 9.2, Total Bilirubin 0.84, Direct Bilirubin 0.43 H, AST 15, ALT 7, Alkaline Phosphatase 65, Total Protein 5.8 L, Albumin 3.1 L, Globulin 2.7 Micro: Microbiology 08/25/25 11:45 Stool Stool Occult Blood (THUAN) - Final Occult Blood Positive Imaging Radiology Impression Abdomen/Pelvis CTA 08/25/25 12:20 IMPRESSION: No contrast extravasation in the bowel lumen. No free fluid in the abdomen and pelvis. Asymmetric wall thickening of the cecum concerning for colon cancer. Filling defect in the left lobar pulmonary artery consistent with pulmonary embolism. No evidence of right heart strain. Findings were discussed with Dave Raphael 08/25/2025 12:48 p.m. Reading Location: [facility]
--- NOTE | 2025-08-26 08:17 | PCM.CONS.P ---
[facility] Medical History Anemia Kidney disease Coronary artery disease Congestive heart failure (CHF) Home Medications ?Medication ?Instructions ?Recorded ?Last Taken ?Type atorvastatin 20 mg tablet 20 mg PO DAILY 08/25/25 08/24/25 History ferrous sulfate 325 mg (65 mg 325 mg PO DAILY 08/25/25 08/24/25 History iron) tablet (FeroSul) metoprolol succinate 25 mg 25 mg PO DAILY 08/25/25 08/25/25 History tablet,extended release 24 hr omeprazole 40 mg capsule,delayed 40 mg PO DAILY 08/25/25 Unknown History release torsemide 20 mg tablet 20 mg PO DAILY 08/25/25 08/25/25 History Allergy/AdvReac Type Severity Reaction Status Date / Time No Known Allergies Allergy Verified 08/25/25 10:29 Family History no significant family his Surgical History no surgical history Social History housing: care home number of children: 2 current occupational status: retired current occupational exposures/hazards: No pets and animals: No history of recent travel: No sexually active: No Smoking Status: Former smoker ROS Constitutional Constitutional: Reports as per HPI, fatigue and weight loss Eyes Eyes: Reports systems reviewed and no addt'l complaints, except as documented ENT HEENT: Reports systems reviewed and no addt'l complaints, except as documented Cardiovascular Cardiovascular: Reports systems reviewed and no addt'l complaints, except as documented and other Details: knot in the R side Respiratory/Chest Respiratory/Chest: Reports systems reviewed and no addt'l complaints, except as documented Gastrointestinal Gastrointestinal: Reports melena Genitourinary Genitourinary: Reports systems reviewed and no addt'l complaints, except as documented Musculoskeletal Musculoskeletal: Reports systems reviewed and no addt'l complaints, except as documented Integumentary Integumentary: Reports systems reviewed and no addt'l complaints, except as documented Neurologic Neurologic: Reports systems reviewed and no addt'l complaints, except as documented Psychiatric Psychiatric: Reports systems reviewed and no addt'l complaints, except as documented Endocrine Endocrinology: Reports systems reviewed and no addt'l complaints, except as documented Hematologic/Lymphatic Hematologic/Lymphatic: Reports anemia Allergic/Immunologic Allergic/Immunologic: Reports systems reviewed and no addt'l complaints, except as documented Physical Exam Const alert General Appearance: cooperative HEENT normocephalic Lymph Lymphatic: no lymphadenopathy noted Resp normal respiratory effort and clear to auscultation bilaterally Cardio regular rate GI GI Narrative: Hyperactive bowel sounds this patient had bowel prep for colonoscopy Inspection: abdominal distention Extremity normal capillary refill Skin no rashes or lesions noted Neuro CN's II-XII intact bilaterally, no focal motor deficits and no sensory deficits noted Speech: speech normal Gait (Neuro): unable to assess gait Psych affect normal Charges/Coding Palliative Care Palliative Care: 26994 New Pt Consult 80+ min HPI Current admission Current Code Status: DNRCCA with him today. Time-limited trial no trach PEG Associated Diagnosis: Possible colon cancer, anemia Consult Data Date of Consult: 08/26/25 Location of consult: PCU Reason for referral: Goals of care and CODE STATUS Referral source: Dr. Norton Palliative care diagnosis (Summary list): Anemia requiring transfusion, colon cancer Palliative care services/treatment (Accepted, as consult): Accepted Case discussed with referring provider: CODE STATUS change HPI Narrative HPI Narrative: PAIN ASSESSMENT denies pain Prior to meeting with the patient at bedside I reviewed labs, radiological studies as well as documentation. I then met with the patient and his daughter, Anahy at bedside. They had just completed POA paperwork designating Anahy and her brother as POA's. Introduced myself and the concept of palliative care in which they voluntarily excepted our services. Patient is currently living at assisted living at [facility]. He had an episode of dark tarry stools which presented him to the emergency department with a hemoglobin of 5.6. He did receive blood transfusion and his hemoglobin is now 8.5. He does have elevated platelets at 532. He did have a CT scan which showed that he had a PE to the left lower pulmonary artery IVC filter was placed. Also shows that he has a possible cecal malignancy in which he will be having a colonoscopy today with biopsy tissue sent. He did have an echocardiogram today showing an EF of 40%, moderate LV hypokinesis, stage IV diastolic dysfunction, moderate to close mitral valve insufficiency, 1+ tricuspid valve insufficiency, 1+ pulmonary valve insufficiency, aortic sclerosis without stenosis. Patient's daughter stated that his EF has improved as it was previously 20%. He does have CKD with a baseline creatinine of 1.92. His creatinine today is 1.86. Upon meeting with rapid bedside for assessment he is alert and oriented x 3. He is very talkative and pleasant. His daughter Anahy is at bedside and Mick does look to Anahy for advice and discussion about goals of care and CODE STATUS. I did have a discussion with the patient about the possibility of having colon cancer and if he would want to pursue treatment or not. Patient did state that he would want to pursue treatments that are offered. We then discussed his CODE STATUS and relayed the benefits versus burdens of CPR and intubation. Anahy states that she has had this conversation with him previously and that she feels that he should not to be a full code. After weighing the benefits versus burdens of CPR the patient did state that he wishes to transition to DNR CCA with intubation. He states that he would want a time-limited trial on the ventilator but that he would not want to live on machines. And no trach PEG. CODE STATUS has been changed and the provider has been updated. I did recommend to the patient and his daughter that, given that the patient would like to pursue medical management if he does receive the cancer diagnosis. It would be good for him to have a palliative care outpatient referral to assist with symptom management and extra layer support in the setting of cancer treatments. They both felt that this was a good idea. They are unsure who [facility] uses. They would like to wait until they get the diagnosis with treatment options and then would like to [facility] to place the referral to outpatient palliative care. All questions the patient and his daughter had were answered. Per hospitalist: MARY CHARLES, is a 89 M who presented to [facility] ED on 08/25/2025 from assisted living with acute on chronic anemia on outpatient labs and ongoing dark stools. [facility] records reviewed. Patient has received most of his care through [facility] to this point. He was hospitalized there from 04/05-04/17. He was hospitalized for acute on chronic hypoxic and hypercapnic respiratory failure secondary to volume overload due to acute HFrEF. He was found on echo to have newly reduced EF 20 to 25%. He had thoracentesis done on both sides including twice on the left side during the hospitalization. His respiratory status improved significantly with this and with IV diuresis. He was found to have worsening anemia as well as and CT abdomen pelvis showed mural thickening of the cecum and terminal ileum. Plan was for colonoscopy as an outpatient at that time. Patient was discharged to SNF after hospitalization. He was at SNF for period of time and then moved into assisted living at the [facility]. He has been getting labs checked frequently due to his known anemia and concern for possible cecal malignancy. He was seen in the ED at [facility] in July for acute on chronic anemia and required a blood transfusion with improvement. They discussed with GI who noted no need for urgent colonoscopy. Given his reduced EF, there apparently was concern from GI about his ability to tolerate a colonoscopy. He had outpatient labs today that showed a hemoglobin of 5.9, down from 6.4 on 08/18 and 7.1 on 08/11. He has been having dark stools over this timeframe. Given the worsening anemia, he was brought to the ED for further evaluation. In the ED he was normotensive, in normal sinus rhythm, afebrile and stable on room air at rest. CBC with persistent mild leukocytosis and persistent mild thrombocytosis, no other concerning findings. BMP with creatinine 1.92 (at baseline), otherwise benign. CTA abdomen pelvis showed asymmetric wall thickening of the cecum concerning for colon cancer; also showed a filling defect in the left lobar pulmonary artery consistent with PE with no evidence of right heart strain. Dr. Dang discussed the case with Nicole Morrow and April. Dr. Dominguez is planning to take the patient down for IVC filter placement this afternoon. Dr. Rivera is recommending colonoscopy first for diagnosis likely followed by surgical resection. Dr. Chen noted that he should be able to do the colonoscopy during this hospitalization. Hospitalist was then contacted for admission. I saw the patient at bedside in the ED. Patient was mildly fatigued appearing but otherwise sitting back comfortably in bed, conversing normally, in no acute distress. He was alert and oriented x 3 and mentally sharp. However, he appears to have low health literacy and does not have a great understanding of his degree of heart failure or anemia with possible cancer. He notes that his daughter and son are both mackey of guinea pig breeder and help him with decision making. His daughter lives in [facility] and son lives in [place]. Patient reports mild right-sided lower abdominal pain but otherwise denies any acute concerns currently. Will be admitted for further management. Palliative Assessment Advanced Directive - Current Admission Advance Directive: Advance Directive ON ADMISSION - REFERENCE Do you have a Healthcare No 08/25/25 17:51 Living Will? Do you have a Healthcare Power Yes 08/25/25 17:51 of Ironing Worker? Is a Healthcare Power of No, requested patient 08/25/25 17:51 Ironing Worker present in the marketing development representative bring copy medical rec into [facility] Name of Medical Power of Anahy charles 08/25/25 17:51 Ironing Worker Do You Want Additional Declined 08/25/25 17:51 Information on Advanced Directives or Healthcare Proxy/DPOA comments: Daughter Anahy and son Psychosocial/Spiritual Information Living situation/Marital status: Patient is a and lives at assisted living at [facility] Geographic location: [place] Supports: Family and staff at living facility Buddhism/Lakshmi or spiritual [facility] Spiritual distress: Denied Prior functional status: Patient receives all meals through his living facility. He self propels in his wheelchair Assistive devices at home: Wheelchair Cultrual issues: None Information about the patient as a person: Patient enjoys watching friends, [employer] and westerns Symptoms Palliative performance scale: 50% Palliative prognostic index: 2.5 Dyspnea symptoms: None Constipation symptoms: None Nausea symptoms: None Vomiting symptoms: None Depression symptoms: None Anorexia symptoms: Mild Cough symptoms: None Insomnia symptoms: None Diarrhea symptoms: Mild Fatigue symptoms: Mild Weakness symptoms: Mild Confusion symptoms: None Objective Data Objective Data Vital Signs: Vital Signs Temp Pulse Resp BP Pulse Ox O2 Del Method 97.8 F 53 L 18 112/63 99 Room Air 08/26/25 03:45 08/26/25 03:45 08/26/25 03:45 08/26/25 03:45 08/26/25 03:45 08/26/25 03:45 Oxygen Delivery Method Room Air Weight: 199 lb 1.239 oz Body Mass Index (BMI) 30.2 Intake & Output: Intake and Output for Last 24 Hours 08/24/25 08/25/25 08/26/25 23:59 23:59 23:59 Intake Total 1800 / 1800 Output Total 300 / 300 Balance 1800 / 1800 -300 / -300 Lab / Micro Data Attestation: I reviewed the patient's lab results. Lab results narrative: As per HPI 08/26/25 05:22 08/26/25 05:22 Labs: Laboratory Results - last 24 hr 08/25/25 11:30: WBC 14.6 H, RBC 2.11 L, Hgb 5.9 L*, Hct 19.1 L, MCV 90.5, MCH 28.0, MCHC 30.9 L, RDW Std Deviation 44.5 H, RDW Coeff of Marilyn 13.5, Plt Count 473 H, MPV 8.1, Immature Gran % (Auto) 1.100 H, Neut % (Auto) 73.2 H, Lymph % (Auto) 12.6 L, Terrell % (Auto) 10.2 H, Eos % (Auto) 2.3, Baso % (Auto) 0.6, Absolute Neuts (auto) 10.7 H, Absolute Lymphs (auto) 1.84, Nucleated RBC % 0, PT 13.9, INR 1.1, APTT 47.2 H, Sodium 139, Potassium 4.0, Chloride 101, Carbon Dioxide 28.5, Anion Gap 9, BUN 36 H, Creatinine 1.92 H, Estim Creat Clear Calc 29.02 L, Est GFR (MDRD) Non-Af 33 L, BUN/Creatinine Ratio 18.5, Glucose 113 H, Lactic Acid 1.9, Calcium 8.3, Total Bilirubin 0.25, AST 12, ALT < 5, Alkaline Phosphatase 66, Total Protein 6.3, Albumin 2.9 L, Globulin 3.4, Albumin/Globulin Ratio 0.9, Blood Type A NEGATIVE, Antibody Screen NEGATIVE, Crossmatch See Detail 08/25/25 19:58: WBC 14.6 H, RBC 2.77 L, Hgb 7.7 L, Hct 24.5 L, MCV 88.4, MCH 27.8, MCHC 31.4 L, RDW Std Deviation 46.5 H, RDW Coeff of Marilyn 14.4, Plt Count 465 H, MPV 8.1 08/26/25 05:22: WBC 15.7 H, RBC 3.08 L, Hgb 8.5 L, Hct 26.9 L, MCV 87.3, MCH 27.6, MCHC 31.6 L, RDW Std Deviation 47.3 H, RDW Coeff of Marilyn 14.7 H, Plt Count 532 H, MPV 8.2, PT 13.5, INR 1.0, APTT 31.0, Sodium 136, Potassium 3.6, Chloride 99, Carbon Dioxide 24.7, Anion Gap 12, BUN 31 H, Creatinine 1.86 H, Estim Creat Clear Calc 29.38 L, Est GFR (MDRD) Non-Af 34 L, BUN/Creatinine Ratio 16.8, Glucose 95, Calcium 9.2, Total Bilirubin 0.84, Direct Bilirubin 0.43 H, AST 15, ALT 7, Alkaline Phosphatase 65, Total Protein 5.8 L, Albumin 3.1 L, Globulin 2.7 Micro: Microbiology 08/25/25 11:45 Stool Stool Occult Blood (THUAN) - Final Occult Blood Positive Radiography Diagnostic Testing: Radiology Impression Abdomen/Pelvis CTA 08/25/25 12:20 IMPRESSION: No contrast extravasation in the bowel lumen. No free fluid in the abdomen and pelvis. Asymmetric wall thickening of the cecum concerning for colon cancer. Filling defect in the left lobar pulmonary artery consistent with pulmonary embolism. No evidence of right heart strain. Findings were discussed with Dave Raphael 08/25/2025 12:48 p.m. Reading Location: [facility] Impressions & Recommendations Patient & Family Issues discussed with the patient and family: Goals of care and CODE STATUS Patient goal: Patient is interested in pursuing treatments if he does have a positive cancer diagnosis. Wants to return to his home Family goal: On her father's wishes, endorses father's decision of DNR okay to intubation Ethical & Legal Ethical and legal: None Impressions Impressions: Patient would benefit from outpatient palliative care Recommentation Palliative recommendations: Outpatient palliative care Encouter Achieved as a result of this Palliative Care Encounter: [ [id number], [phone]] minutes were spent in total for this visit which consisted, primarily of counseling and education dealing with the complex and emotionally intense issues of symptom management and palliative care in the setting of serious and potentially life-threatening illness. Review of documentation, labs and radiological studies. ?Patient/family had the opportunity to ask questions Plan (1) GI bleed: QUALIFIERS: GI bleed type/associated pathology: melena Qualified Code(s): K92.1 - Melena (2) Pulmonary embolism: QUALIFIERS: Pulmonary embolism type: other Chronicity: acute Acute cor pulmonale presence: unspecified Qualified Code(s): I26.99 - Other pulmonary embolism without acute cor pulmonale (3) Acute on chronic blood loss anemia: (4) Goals of care, counseling/discussion: (5) Palliative care encounter: PLAN: Plan *Family meeting with patient *CODE STATUS discussion and change of CODE STATUS to DNR CCA with intubation *Continue medical management *Interested in outpatient palliative care once returning to [facility]. Family plans to talk to [facility] once he returns to ask for referral in the event they received a cancer diagnosis.
--- NOTE | 2025-08-26 09:17 | CASEMGMT ---
Discharge Planning Updates sent via [facility] to [facility] [place] with request for advanced directives. Leena Moya DC Planning Asst.
--- NOTE | 2025-08-26 10:03 | CASEMGMT ---
Social Work SW spoke with the patient and he wants to return to [facility] at [place]
--- NOTE | 2025-08-26 10:26 | CASEMGMT ---
Addendum entered by Leena Moya 08/26/25 10:44: *both pts daughter and [place] requested that this be discussed with pt. SW updated. Original Note: Advanced Directives Per [facility] and pts daughter (Anahy), pt has not completed a Health Care POA or Living Will. SW updated. Leena Moya DC Planning Asst.
--- NOTE | 2025-08-26 10:38 | PN_ITS ---
Subjective Subjective Patient seen and examined with his nurse by his bedside. He was admitted with a complaint of acute on chronic anemia on outpatient labs. He had also been having dark stools. He is being managed for acute on chronic anemia. Imaging also showed a small PE and he had an IVC filter placed yesterday. He had no active complaints this morning. He denied any chest pain, palpitations, dizziness, shortness of breath or any other symptoms. Review of systems otherwise negative. He is due for colonoscopy today. He has remained hemodynamically stable. Objective Data Objective Data Vital Signs: Vital Signs Temp Pulse Resp BP Pulse Ox O2 Del Method 97.7 F L 54 L 16 108/58 L 95 Room Air 08/26/25 10:08/26/25 10:08/26/25 10:08/26/25 10:08/26/25 10:08/26/25 10:25 Oxygen Delivery Method Room Air Weight: 199 lb 1.239 oz Body Mass Index (BMI) 30.2 Intake & Output: Intake and Output for Last 24 Hours 08/24/25 08/25/25 08/26/25 23:59 23:59 23:59 Intake Total 1800 / 1800 Output Total 300 / 300 Balance 1800 / 1800 -300 / -300 Lab / Micro Data 08/26/25 05:22 08/26/25 05:22 Labs: Laboratory Results - last 24 hr 08/25/25 11:30: WBC 14.6 H, RBC 2.11 L, Hgb 5.9 L*, Hct 19.1 L, MCV 90.5, MCH 28.0, MCHC 30.9 L, RDW Std Deviation 44.5 H, RDW Coeff of Marilyn 13.5, Plt Count 473 H, MPV 8.1, Immature Gran % (Auto) 1.100 H, Neut % (Auto) 73.2 H, Lymph % (Auto) 12.6 L, [place] % (Auto) 10.2 H, Eos % (Auto) 2.3, Baso % (Auto) 0.6, A bsolute Neuts (auto) 10.7 H, Absolute Lymphs (auto) 1.84, Nucleated RBC % 0, PT 13.9, INR 1.1, APTT 47.2 H, Sodium 139, Potassium 4.0, Chloride 101, Carbon Dioxide 28.5, Anion Gap 9, BUN 36 H, Creatinine 1.92 H, Estim Creat Clear Calc 29.02 L, Est GFR (MDRD) Non-Af 33 L, BUN/Creatinine Ratio 18.5, Glucose 113 H, Lactic Acid 1.9, Calcium 8.3, Total Bilirubin 0.25, AST 12, ALT < 5, Alkaline Phosphatase 66, Total Protein 6.3, Albumin 2.9 L, Globulin 3.4, Albumin/Globulin Ratio 0.9, Blood Type A NEGATIVE, Antibody Screen NEGATIVE, Crossmatch See Detail 08/25/25 19:58: WBC 14.6 H, RBC 2.77 L, Hgb 7.7 L, Hct 24.5 L, MCV 88.4, MCH 27.8, MCHC 31.4 L, RDW Std Deviation 46.5 H, RDW Coeff of Marilyn 14.4, Plt Count 465 H, MPV 8.1 08/26/25 05:22: WBC 15.7 H, RBC 3.08 L, Hgb 8.5 L, Hct 26.9 L, MCV 87.3, MCH 27.6, MCHC 31.6 L, RDW Std Deviation 47.3 H, RDW Coeff of Marilyn 14.7 H, Plt Count 532 H, MPV 8.2, PT 13.5, INR 1.0, APTT 31.0, Sodium 136, Potassium 3.6, Chloride 99, Carbon Dioxide 24.7, Anion Gap 12, BUN 31 H, Creatinine 1.86 H, Estim Creat Clear Calc 29.38 L, Est GFR (MDRD) Non-Af 34 L, BUN/Creatinine Ratio 16.8, Glucose 95, Calcium 9.2, Total Bilirubin 0.84, Direct Bilirubin 0.43 H, AST 15, ALT 7, Alkaline Phosphatase 65, Total Protein 5.8 L, Albumin 3.1 L, Globulin 2.7 Micro: Microbiology 08/25/25 11:45 Stool Stool Occult Blood (THUAN) - Final Occult Blood Positive Radiography Diagnostic Testing: Radiology Impression Abdomen/Pelvis CTA 08/25/25 12:20 IMPRESSION: No contrast extravasation in the bowel lumen. No free fluid in the abdomen and pelvis. Asymmetric wall thickening of the cecum concerning for colon cancer. Filling defect in the left lobar pulmonary artery consistent with pulmonary embolism. No evidence of right heart strain. Findings were discussed with Dave Raphael 08/25/2025 12:48 p.m. Reading Location: [facility] Physical Exam Const alert, oriented x3 and no apparent distress Constitutional Narrative: frail General Appearance: cooperative HEENT normocephalic and head/scalp atraumatic Mouth: dry mucous membranes Eyes EOMs intact bilaterally Neck no lymphadenopathy and supple Lymph Lymphatic: no lymphedema noted Resp Resp Narrative: mildly diminished breath sounds bibasally, no wheezes or crackles. on room air. Cardio regular rhythm, S1 normal heart sound, S2 normal heart sound and no murmurs Cardio Narrative: mild bradycardia GI normal to inspection, nondistended, normoactive bowel sounds, soft to palpation and non-tender Extremity normal capillary refill, no clubbing, cyanosis or edema and no calf tenderness General Extremity: no tenderness to palpation of joints or extremities Skin General Skin Exam: no breakdown Neuro no focal motor deficits and no sensory deficits noted Motor Exam: general weakness Psych thought process normal and cooperative Appearance: appropriate Assessment & Plan Assessment/Plan (1) Acute on chronic blood loss anemia: (2) Pulmonary embolism: (3) GI bleed: PLAN: Plan #Acute on chronic blood loss anemia due to lower GI bleed and 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 CT of the abdomen and pelvis showed possible right sided colonic cancer. * He followed with gastroenterology but was deemed to not be a candidate for colonoscopy due to his HFrEF and EF of 20-25% * However he started having dark stools again * CTA abdomen and pelvis here showed asymmetric wall thickening of the cecum, concerning for colon cancer. * Left transfusion 2 days of packed red blood cells. * Fall colonoscopy today. * I spoke to Dr. Rivera the general surgeon who said depending on the findings of the colonoscopy the earliest he can get him in for a right hemicolectomy is September 16. He would want cardiac clearance prior to that. * #Acute PE * CT of the operative pelvis picked up explore for late effects in the left lower while lobe pulmonary artery consistent with PE but no evidence of right heart strain. * Vascular surgery was consulted and he had an IVC filter inserted. * 2D echo ordered and duplex of the lower extremities ordered * #HFrEF * echo in March showed EF of 20-25% with global LV dysfunction and no significant valvular disease. * Repeat 2D echo ordered and pending. * on metoprolol, torsemide * #Hypertension: on torsemide and metoprolol #Hyperlipidemia: on statin #CKD IIIb: Cr at baseline. Will continue monitoring. #GERD: on PPI. DVT prophylaxis: SCDs CODE STATUS: Palliative care nurse informed me that she had discussed with the patient about CODE STATUS and patient has switched his CODE STATUS to DNR CCA with intubation. Charges/Coding Visit Charges Inpatient E&M: 45071 Subs Hosp L2
--- NOTE | 2025-08-26 12:30 | COLBX_PTH ---
PATIENT: MARY CHARLES LOC: [facility] U#:[id number] AGE/SX: 89/M ROOM: [facility] RE08/25/[address]: Dr. Minal Dai MD : 1935 BED: 1 DIS: 08/28/2025 SPEC #: [id number] RECD: 08/26/25 18:23 STATUS: SHAILA REQ #: [id number] EVERARDO: 08/26/25 12:[address]: Ayush Chen DEPT: SURGICAL PATHOLOGY RECD BY: Eduardo Vazquez ENTERED: 08/27/25 11:06 SP TYPE: COLON BX OTHR DR: MD Dr. Armando Yanes DO Dr. Eric Turney, MD Dr. Nana Yaa Koram, MD Dr. Prakash Chand, MD Dr. Sam Ghourbrial, MD Heather Evans, REPAIR SERVICE CLERK-C Lucero Martines, REPAIR SERVICE CLERK-C NAHUM Scruggs Tissues: A - Duodenum, NOS B - Cecum, NOS Procedures: Immunohistochemical Stains Surgery Specimen Level IV IHC Stain ADDITIONAL HEADER OPERATION: Colonoscopy with cecum mass, EGD with biopsy PRE-OP DIAGNOSIS: Acute on chronic blood loss anemia, GI bleed, pulmonary embolism TISSUE SUBMITTED: A- Duodenum biopsy, B- Cecum mass biopsy MICROSCOPIC DIAGNOSIS A. Small intestine, duodenum, biopsy: Normal villous architecture with no specific pathologic change. Negative for increased intraepithelial lymphocytes. B. Colon, cecum, mass, biopsy: At least mucosal adenocarcinoma, superficial biopsy. Cannot rule out invasive adenocarcinoma. Mismatch Repair Protein (MMR) Nuclear Expression by IHC: ? MLH1: ?Present/intact ? PMS2: ?Present/intact ? MSH2: ?Present/intact ? MSH6: ?Present/intact IHC Interpretation: No loss of nuclear expression of?MMR?proteins: low probability of microsatellite instability-high (MSI-H)# # There are exceptions to the above IHC interpretations. These results should not be considered in isolation, and clinical correlation with genetic counseling is recommended to assess the need for germline testing. MICROSCOPIC DESCRIPTION Slides are reviewed. All matched controls reacted appropriately. These tests were developed and their performance characteristics determined by [facility]. They may not have been cleared or approved by the U.S. Food and Drug Administration. The FDA has determined that such clearance or approval is not necessary. The above immunohistochemical markers and/or special?stains have been reviewed by the Pathologist. GROSS DESCRIPTION A. Received in fixative is one container labeled with the patient's name and designated Duodenum biopsy. The specimen consists of two irregular fragments of greer tissue, each measuring 0.3 cm. The specimen is totally submitted in one cassette. B. Received in fixative is one container labeled with the patient's name and designated Cecum mass biopsy. The specimen consists of multiple irregular fragments of greer tissue that in aggregate measure 1.4 x 0.8 x 0.1 cm. The specimen is totally submitted in one cassette. [place] 08/27/2025 CPT:77051e2,34662,09476r8
--- NOTE | 2025-08-26 13:33 | CASEMGMT ---
Social Work SW assisted the patient with completing a POA. A copy is in the patients chart. EMMANUEL Sotelo
--- NOTE | 2025-08-26 16:12 | PCM.PRE.AN2 ---
ASA Classification* ASA Classification ASA Classification: 3 Assessment & Plan Anesthesia* Anesthesia Assessment Anesthesia Assessment: Discussed sedation and/or anesthesia options, risks, benefits, and alternatives with patient/parents/legal guardian/POA. Questions invited. The patient/parents/legal guardian/POA seems to understand and agrees to proceed with anesthesia plan. Reviewed the physical assessment, medical history, allergy history and patient home medications list prior to surgery/procedure/anesthetic and documented any changes. Performed airway and anesthesia risk assessments. Anesthesia Type Anesthesia Type: MAC History Source History Obtained from:: Patient and Chart Anesthesia Focused Assessment* Temperature: 97.8 F Pulse Rate: 60 Blood Pressure: 114/65 Respiratory Rate: 16 Pulse Ox: 95 Oxygen Delivery Method: Room Air Airway Assessment Mouth opens: >3 cm Mallampati Score: II Teeth Condition: Missing Neck Range of motion (ROM): Limited ROM Labs Anesthesia Preop lab: CBC WBC, (4.4-11.0) 15.7 K/mm3 H Today, 05:22 RBC, (4.6-6.2) 3.08 M/mm3 L Today, 05:22 Hgb, (13.0-16.5) 8.5 g/dL L Today, 05:22 Hct, (40-54) 26.9 % L Today, 05:22 Plt Count, (150-450) 532 K/mm3 H Today, 05:22 CHEMISTRY Potassium, (3.3-5.1) 3.6 mmol/L Today, 05:22 Sodium, (133-145) 136 mmol/L Today, 05:22 BUN, (4-19) 31 mg/dL H Today, 05:22 Creatinine, (0.70-1.20) 1.86 mg/dL H Today, 05:22 Glucose, (70-99) 95 mg/dL Today, 05:22 COAG PT, (11.7-14.9) 13.5 SECONDS Today, 05:22 Pre-Assessment Diagnosis/Proposed Procedure Planned Operative Procedure(s): EGD and colonoscopy Anesthesia History 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 When Was Last Pacemaker Check QUESTION #4 FULL TEXT: You/Your Family Experience fever (hyperthermia) with Anesthesia Last Oral Intake Last Oral intake: Last Oral Intake NPO since Meds taken in AM with sips of water? Meds patient instructed to take am of surgery PONV PONV - locomotive switch operator: PONV - locomotive switch operator Female HX of Motion Sickness HX of N/V After Surgery Non-Smoker Duration of Surgery greater than 60 minutes Number of Risk Factors PONV Score Height & Weight Height & Weight: Anesthesia: Height & Weight Height 5 ft 8 in 08/26/25 09:44 Weight: 90.3 kg 08/26/25 09:44 Body Mass Index (BMI) 30.2 08/25/25 17:48 Respiratory Assessment Respiratory Assessment - locomotive switch operator: Respiratory Tract Infection Hx - locomotive switch operator Hx Respiratory Tract Infection STOP Sleep Apnea STOP Sleep Apnea - locomotive switch operator: STOP Sleep Apnea - locomotive switch operator Hx Hypertension No 08/25/25 17:51 Hx Sleep Apnea Yes 08/25/25 17:51 CPAP Yes: pt u nsure cpap vs 08/25/25 17:51 bipap - doesn't use BIPAP Yes 08/25/25 17:51 Do you snore loudly (louder than talking or can be heard Do you often feel tired/ fatigued/ sleepy during daytime? Has anyone observed you stop breathing during sleep? STOP Results Positive 08/25/25 17:51 QUESTION #5 FULL TEXT : Do you snore loudly (louder than talking or can be heard through closed doors)? 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 Specify any problems Hx of Preganancy in last 3 N/A 08/25/25 17:51 Months Nurse Filling Out Transfusion SSHAW 08/25/25 17:51 & Questions: Date: 08/25/25 08/25/25 17:51 Time: 17:53 08/25/25 17:51 Patient unable to answer at this time (ie. confused, unrespo /Reproduction History /Reproductive History - locomotive switch operator: /Reproductive Hx- locomotive switch operator Hx Now Gestational Age (in weeks): EDC: Hx Hx Para Hx Section SAB Does the father of the baby or his family experience fever w Father of the baby Malignant Hypertension history comment Active Medications Active Medications: Current Medications Generic Name Dose Route Start Last Admin Trade Name Freq PRN Reason Stop Dose Admin Acetaminophen 650 mg 08/25/25 17:43 Acetaminophen 325 Mg Tablet PO Q6H PRN PRN Pain 1-10 Or Fever>100.7 Atorvastatin Calcium 20 mg 08/25/25 22:00 08/25/25 23:21 Atorvastatin Calcium 20 Mg Tablet PO 20 mg QHS EMBER Administration Ferrous Sulfate 325 mg 08/26/25 12:00 08/26/25 11:49 Ferrous Sulfate 325 Mg Tablet PO Not Given DAILY@1200 EMBER Furosemide 40 mg 08/26/25 10:00 08/26/25 11:49 Furosemide 40 Mg Tablet PO Not Given DAILY EMBER Sodium Chloride 500 mls @ 15 mls/hr 08/25/25 17:51 IV PRN PRN Blood Transfusion Sodium Chloride 250 mls @ 15 mls/hr 08/25/25 17:51 IV .[id number] PRN Saline Flush Sodium Chloride 250 mls @ 15 mls/hr 08/25/25 17:51 IV .[id number] PRN Additional IVPB Infusion Lactated Ringer's 1,000 mls @ 15 mls/hr 08/26/25 16:15 IV .Q48H EMBER Melatonin 3 mg 08/25/25 17:43 Melatonin 3 Mg Tablet PO QHS PRN PRN INSOMNIA Metoprolol Succinate 25 mg 08/26/25 10:00 08/26/25 11:49 Metoprolol(Xl)Succ 25 Mg Tablet PO Not Given DAILY [facility] Protocol Ondansetron HCl 4 mg 08/25/25 17:43 Ondansetron 4 Mg/2 Ml Vial IV Q8H PRN PRN NAUSEA/VOMITING Pantoprazole Sodium 40 mg 08/25/25 22:00 08/26/25 11:49 Pantoprazole Sodium 40 Mg Tablet PO Not Given BID EMBER Sodium Chloride 10 - 40 ml 08/25/25 17:51 0.9% Saline Lock 10 Ml Syringe IV UD PRN SALINE FLUSH PFSH Medical History Anemia Kidney disease Coronary artery disease Congestive heart failure (CHF) Home Medications ?Medication ?Instructions ?Recorded ?Last Taken ?Type atorvastatin 20 mg tablet 20 mg PO DAILY 08/25/25 08/24/25 History ferrous sulfate 325 mg (65 mg 325 mg PO DAILY 08/25/25 08/24/25 History iron) tablet (FeroSul) metoprolol succinate 25 mg 25 mg PO DAILY 08/25/25 08/25/25 History tablet,extended release 24 hr omeprazole 40 mg capsule,delayed 40 mg PO DAILY 08/25/25 Unknown History release torsemide 20 mg tablet 20 mg PO DAILY 08/25/25 08/25/25 History Allergy/AdvReac Type Severity Reaction Status Date / Time No Known Allergies Allergy Verified 08/25/25 10:29 Family History no significant family his Surgical History no surgical history Social History housing: [facility] number of children: 2 current occupational status: retired current occupational exposures/hazards: No pets and animals: No history of recent travel: No sexually active: No Smoking Status: Former smoker Review of Systems (Anesthesia) ROS Narrative System reviewed and no additional complaints, except as documented.
[2025-08-26] MEDS: Lactated Ringers 1,000 ML 15 ML IV (16:15)
--- NOTE | 2025-08-26 16:57 | PCM.POST.ANE ---
Anesthesia: Postop Eval I Current Vital Signs Temperature: 97.5 F Pulse Rate: 72 Blood Pressure: 110/59 Respiratory Rate: 20 Pulse Ox: 95 Oxygen Delivery Method: Room Air Assessment Airway patent: Yes Spontaneous unlabored respirations: Yes Mental status: Awake and Calm nausea: No Vomiting: No Anesthesia Complication: No Fluid Hydration Crystalloid volume administer (ml): 200 Total IV fluid infused: 200 Progress Note Anesthesia document: Postop Eval 1 completed: Yes
--- NOTE | 2025-08-26 17:00 | OP.PROVAT_ITS ---
08/26/2025 [facility] Re : [facility]. My impressions and recommendations are as follows: Impressions : - Normal esophagus. - No gross lesions in the entire stomach. - Chronic duodenitis. Biopsied. Recommendations : - [facility]. - Full liquid diet today. - Continue present medications. - Await pathology results. My findings are described in the full procedure note, which is enclosed. If I can be of further assistance, please feel free to contact me at . Sincerely, Ayush Chen, 08/26/2025 4:59:46 PM This report has been signed electronically.
--- NOTE | 2025-08-26 17:00 | OP.EGD_ITS ---
Patient Name: Aaron Lennon Procedure Date: 08/26/2025 4:22 PM Date of : 1935 Age: 89 Procedure: Upper GI endoscopy Indications: Iron deficiency anemia Providers: Ayush Chen DO Medicines: Monitored Anesthesia Care Patient Profile: This is an 89 year old male. Refer to note in patient chart for documentation of history and physical. Patient has symptoms of acute right lower quadrant abdominal pain. Complications: No immediate complications. Procedure: Pre-Anesthesia Assessment: - Prior to the procedure, a History and Physical was performed, and patient medications and allergies were reviewed. The patient is competent. The risks and benefits of the procedure and the sedation options and risks were discussed with the patient. All questions were answered and informed consent was obtained. Patient identification and proposed procedure were verified by the physician in the pre-procedure area. Mental Status Examination: alert and oriented. Airway Examination: normal oropharyngeal airway and neck mobility. Respiratory Examination: clear to auscultation. CV Examination: normal. Prophylactic Antibiotics: The patient does not require prophylactic antibiotics. Prior Anticoagulants: The patient has taken no anticoagulant or antiplatelet agents. ASA Grade Assessment: II - A patient with mild systemic disease. After reviewing the risks and benefits, the patient was deemed in satisfactory condition to undergo the procedure. The anesthesia plan was to use monitored anesthesia care (MAC). Immediately prior to administration of medications, the patient was re-assessed for adequacy to receive sedatives. The heart rate, respiratory rate, oxygen saturations, blood pressure, adequacy of pulmonary ventilation, and response to care were monitored throughout the procedure. The physical status of the patient was re-assessed after the procedure. After obtaining informed consent, the endoscope was passed under direct vision. Throughout the procedure, the patient's blood pressure, pulse, and oxygen saturations were monitored continuously. The pediatric colonoscope was introduced through the mouth, and advanced to the fourth part of the duodenum. Small bowel enteroscopy was deemed necessary. The upper GI endoscopy was accomplished without difficulty. The patient tolerated the procedure well. Scope In: 4:32:31 PM Scope Out: 4:35:11 PM Total Procedure Duration Time 0 hours 2 minutes 40 seconds Findings: The examined esophagus was normal. No gross lesions were noted in the entire examined stomach. Patchy mild inflammation characterized by friability and granularity was found in the third portion of the duodenum. Biopsies were taken with a cold forceps for histology. Verification of patient identification for the specimen was done. Estimated blood loss was minimal. Impression: - Normal esophagus. - No gross lesions in the entire stomach. - Chronic duodenitis. Biopsied. Recommendation: - Return patient to [facility] for [facility] care. - Full liquid diet today. - Continue present medications. - Await pathology results. Procedure Code(s): --- Professional --- 71369, Small intestinal endoscopy, enteroscopy beyond second portion of duodenum, not including ileum; with biopsy, single or multiple CPT copyright 2021 [employer]. All rights reserved. The codes documented in this report are preliminary and upon chronic disease epidemiologist review may be revised to meet current compliance requirements. Ayush Chen DO 08/26/2025 4:59:46 PM This report has been signed electronically. Number of Addenda: 0 Note Initiated On: 08/26/2025 4:22 PM
--- NOTE | 2025-08-26 17:04 | OP.PROVAT_ITS ---
08/26/2025 [facility] Re : [facility]. 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 Biopsied. - Diverticulosis in the recto-sigmoid colon, in the sigmoid colon and in the descending colon. - One 8 mm polyp at the hepatic flexure. Recommendations : - Refer to a surgeon. - Repeat colonoscopy is recommended for surveillance. The colonoscopy date will be determined after pathology results from today's exam become available for review. - Continue present medications. My findings are described in the full procedure note, which is enclosed. If I can be of further assistance, please feel free to contact me at . Sincerely, Ayush Friend, 08/26/2025 5:03:51 PM This report has been signed electronically.
--- NOTE | 2025-08-26 17:04 | OP.COLON_ITS ---
Patient Name: Aaron Lennon Procedure Date: 08/26/2025 4:35 PM Date of : 1935 Age: 89 Procedure: Colonoscopy Indications: Iron deficiency anemia Providers: Ayush Chen DO Medicines: Monitored Anesthesia Care Patient Profile: This is an 89 year old male. Refer to note in patient chart for documentation of history and physical. Patient has symptoms of acute right lower quadrant abdominal pain. Last Colonoscopy: none. The patient's first colonoscopy is today. Complications: No immediate complications. Procedure: Pre-Anesthesia Assessment: - Prior to the procedure, a History and Physical was performed, and patient medications and allergies were reviewed. The patient is competent. The risks and benefits of the procedure and the sedation options and risks were discussed with the patient. All questions were answered and informed consent was obtained. Patient identification and proposed procedure were verified by the physician in the pre-procedure area. Mental Status Examination: alert and oriented. Airway Examination: normal oropharyngeal airway and neck mobility. Respiratory Examination: clear to auscultation. CV Examination: normal. Prophylactic Antibiotics: The patient does not require prophylactic antibiotics. Prior Anticoagulants: The patient has taken no anticoagulant or antiplatelet agents. ASA Grade Assessment: II - A patient with mild systemic disease. After reviewing the risks and benefits, the patient was deemed in satisfactory condition to undergo the procedure. The anesthesia plan was to use monitored anesthesia care (MAC). Immediately prior to administration of medications, the patient was re-assessed for adequacy to receive sedatives. The heart rate, respiratory rate, oxygen saturations, blood pressure, adequacy of pulmonary ventilation, and response to care were monitored throughout the procedure. The physical status of the patient was re-assessed after the procedure. After I obtained informed consent, the scope was passed under direct vision. Throughout the procedure, the patient's blood pressure, pulse, and oxygen saturations were monitored continuously. The pediatric colonoscope was introduced through the anus and advanced to the cecum, identified by its appearance. The colonoscopy was performed without difficulty. The patient tolerated the procedure well. The quality of the bowel preparation was poor. The ileocecal valve, appendiceal orifice, and rectum were photographed. Scope In: 4:37:46 PM Scope Withdrawal Time 0 hours 3 minutes 53 seconds Scope Out: 4:47:23 PM Total Procedure Duration Time 0 hours 9 minutes 37 seconds Findings: The perianal and digital rectal examinations were normal. An ulcerated partially obstructing large mass was found in the cecum. The mass was circumferential. No bleeding was present. This was biopsied with a cold forceps for histology. Verification of patient identification for the specimen was done. Estimated blood loss was minimal. A few small and large-mouthed diverticula were found in the recto-sigmoid colon, sigmoid colon and descending colon. An 8 mm polyp was found in the hepatic flexure. The polyp was sessile. 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 Biopsied. - Diverticulosis in the recto-sigmoid colon, in the sigmoid colon and in the descending colon. - One 8 mm polyp at the hepatic flexure. Recommendation: - Refer to a surgeon. - Repeat colonoscopy is recommended for surveillance. The colonoscopy date will be determined after pathology results from today's exam become available for review. - Continue present medications. Procedure Code(s): --- Professional --- 15206, Colonoscopy, flexible; with biopsy, single or multiple CPT copyright 2021 [employer]. All rights reserved. The codes documented in this report are preliminary and upon casino cashier review may be revised to meet current compliance requirements. Ayush Chen DO 08/26/2025 5:03:51 PM This report has been signed electronically. Number of Addenda: 0 Note Initiated On: 08/26/2025 4:35 PM
--- NOTE | 2025-08-26 17:25 | POSTOPAN2_ITS ---
Anesthesia Postop Eval I Sum Postop Eval Completion status Anesthesia document: Postop Eval 1 completed: Yes Anesthesia Postop Eval I Summary Anesthesia Postop Eval I Summary: Anesthesia Postop Eval I: Assessment Summary Airway patent Yes 08/26/25 16:58 COUNSELING SERVICES DIRECTOR.[email or web address] Spontaneous unlabored Yes 08/26/25 16:58 COUNSELING SERVICES DIRECTOR.[email or web address] respirations Mental status Awake,Calm 08/26/25 16:58 COUNSELING SERVICES DIRECTOR.[email or web address] nausea No 08/26/25 16:58 COUNSELING SERVICES DIRECTOR.[email or web address] Vomiting No 08/26/25 16:58 COUNSELING SERVICES DIRECTOR.[email or web address] Anesthesia Postop Eval I: Fluid Summary Crystalloid volume administer 200 08/26/25 16:58 COUNSELING SERVICES DIRECTOR.[email or web address] (ml) Colloids volume administered ( ml) Blood Product volume administered (ml) Total IV fluid infused 200 08/26/25 16:58 COUNSELING SERVICES DIRECTOR.[email or web address] Anesthesia Postop Eval I: Summary Notes Anesthesia Complication No 08/26/25 16:58 COUNSELING SERVICES DIRECTOR.[email or web address] Anesthesia Complication Comment: Post-operative progress note Anesthesia: Postop Eval II Evaluation Mental status: Awake and Calm Pain Level: 1 nausea: No Vomiting: No Complications Anesthesia Complication: No
--- NOTE | 2025-08-26 17:25 | PCM.POSTANE2 ---
Anesthesia Postop Eval I Sum Postop Eval Completion status Anesthesia document: Postop Eval 1 completed: Yes Anesthesia Postop Eval I Summary Anesthesia Postop Eval I Summary: Anesthesia Postop Eval I: Assessment Summary Airway patent Yes 08/26/25 16:58 CHEMICAL TEST ENGINEER.[email or web address] Spontaneous unlabored Yes 08/26/25 16:58 CHEMICAL TEST ENGINEER.PKEL respirations Mental status Awake,Calm 08/26/25 16:58 CHEMICAL TEST ENGINEER.[email or web address] nausea No 08/26/25 16:58 CHEMICAL TEST ENGINEER.[email or web address] Vomiting No 08/26/25 16:58 CHEMICAL TEST ENGINEER.PKEL Anesthesia Postop Eval I: Fluid Summary Crystalloid volume administer 200 08/26/25 16:58 CHEMICAL TEST ENGINEER.PKEL (ml) Colloids volume administered ( ml) Blood Product volume administered (ml) Total IV fluid infused 200 08/26/25 16:58 CHEMICAL TEST ENGINEER.PKEL Anesthesia Postop Eval I: Summary Notes Anesthesia Complication No 08/26/25 16:58 CHEMICAL TEST ENGINEER.[email or web address] Anesthesia Complication Comment: Post-operative progress note Anesthesia: Postop Eval II Evaluation Mental status: Awake and Calm Pain Level: 1 nausea: No Vomiting: No Complications Anesthesia Complication: No
[2025-08-27] VITALS (9 sets, daily range): BP systolic 92–107; BP diastolic 55–69; PULSE 57–74; RESP 15–18; TEMP 36.6–36.9; O2SAT 92–97
[2025-08-27 06:19] LABS: Hematocrit 27.1 % (40-54); Hemoglobin 8.7 g/dL (13.0-16.5); Immature Granulocytes Count 0.190 X10^3/uL (0.0-0.0); Mean Corp Hgb Conc 32.1 g/dL (32-36); Mean Corpuscular Volume 87.1 fL (80-94); Mean Platelet Vol. 8.0 fl (6.2-12.0); NRBC Flagged by Analyzer 0 % (0-5); Platelet Count 482 K/mm3 (150-450); RBC Distribution Width CV 14.4 % (11.6-14.6); RBC Distribution Width SD 45.8 fl (35.1-43.9); Red Blood Count 3.11 M/mm3 (4.6-6.2); White Blood Count 12.8 K/mm3 (4.4-11.0)
--- NOTE | 2025-08-27 06:45 | PN.SURG_ITS ---
Subjective Subjective The patient denies any issues or problems this morning on rounds. 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 Objective Data Objective Data Vital Signs: Vital Signs Temp Pulse Resp BP Pulse Ox O2 Del Method 98.0 F 61 18 95/55 L 96 Room Air 08/27/25 03:15 08/27/25 03:15 08/27/25 03:15 08/27/25 03:15 08/27/25 03:15 08/27/25 03:15 Oxygen Delivery Method Room Air Weight: 199 lb 1.239 oz Body Mass Index (BMI) 30.2 Intake & Output: Intake and Output for Last 24 Hours 08/25/25 08/26/25 08/27/25 23:59 23:59 23:59 Intake Total 1800 / 1800 30.5 / 510.5 480 / 480 Output Total 1000 / 1700 850 / 850 Balance 1800 / 1800 -969.5 / -1189.5 -370 / -370 Lab / Micro Data 08/27/25 06:04 08/26/25 05:22 Labs: Laboratory Results - last 24 hr 08/26/25 05:22: Total Bilirubin 0.84, Direct Bilirubin 0.43 H, AST 15, ALT 7, Alkaline Phosphatase 65, Total Protein 5.8 L, Albumin 3.1 L, Globulin 2.7 08/27/25 06:04: WBC 12.8 H, RBC 3.11 L, Hgb 8.7 L, Hct 27.1 L, MCV 87.1, MCH 28.0, MCHC 32.1, RDW Std Deviation 45.8 H, RDW Coeff of Marilyn 14.4, Plt Count 482 H, MPV 8.0, Immature Gran % (Auto) 1.500 H, Neut % (Auto) 65.0, Lymph % (Auto) 18.8 L, [place] % (Auto) 10.4 H, Eos % (Auto) 4.0, Baso % (Auto) 0.3, Absolute Neuts (auto) 8.3 H, Absolute Lymphs (auto) 2.42, Nucleated RBC % 0 Micro: Microbiology 08/25/25 11:45 Stool Stool Occult Blood (THUAN) - Final Occult Blood Positive Radiography Diagnostic Testing: Radiology Impression Venous Doppler Study 08/25/25 17:43 Interpretation Summary Acute deep vein thrombosis is noted in the left gastrocnemius vein. Deep veins of the right lower extremity are patent and compressible segmentally. There is no evidence of right lower extremity deep vein thrombosis. The bilateral great saphenous veins appear patent and compressible segmentally. Ordering Physician: Armando Norton Referring Physician: Negro Messer Performed By: Jon aHmmond RVT Echocardiogram 08/25/25 18:37 Interpretation Summary The study was technically difficult. Moderate global LV hypokinesis. Estimated LVEF 40-45%. Stage I diastolic dysfunction. Moderate (2+) mitral valve insufficiency. Mild (1+) tricuspid valve insufficiency. Aortic sclerosis, no stenosis. Mild (1+) pulmonic valve insufficiency. Ordering Physician: Armando Norton Performed By: Dave Aaron RCS Physical Exam Narrative Alert and oriented x 3. He is in no acute distress. Abdomen soft, nontender nondistended. Const no apparent distress Assessment & Plan Assessment/Plan (1) GI bleed: QUALIFIERS: GI bleed type/associated pathology: melena Qualified Code(s): K92.1 - Melena PLAN: Plan The patient is a 89-year-old male admitted with anemia. 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 If patient wishes to proceed with surgery, will likely need cardiac evaluation prior to surgery. Dr. Rivera tentatively planning for colectomy as an outpatient once H&H corrected. Will begin surgical planning process
[2025-08-27 06:59] LABS: Anion Gap 7 (5-15); BUN 22 mg/dL (4-19); BUN/Creat Ratio 12.4 RATIO (10-20); Calcium,Total 8.6 mg/dL (7.6-11.0); Carbon Dioxide 24.5 mmol/L (21.0-32.0); Chloride 104 mmol/L (98-108); Estimated Creatinine Clearance 31.05 ml/min (50-250); Glucose 96 mg/dL (70-99); Potassium 3.9 mmol/L (3.3-5.1)
[2025-08-27] MEDS: Metoprolol(XL)Succ 25 MG Tablet PO (09:08)
--- NOTE | 2025-08-27 09:16 | CASEMGMT ---
Discharge Planning Updates sent via [facility] to Stefany Dye DC Planning Asst.
--- NOTE | 2025-08-27 09:47 | PCM.PROGNOTE ---
Subjective Subjective Patient seen and examined with his nurse by his bedside. He had no active complaints and had an uneventful night. Review of systems otherwise negative. He had colonoscopy yesterday which showed a large cecal mass. I did speak to cardiology yesterday about cardiac restratification before surgery. Cardiology [facility] for the preop clearance. Patient was however telling me that he would prefer to stay here. He also needs to talk to his daughter Anahy Lennon about whether he should [facility] or see our cardiology group for cardiac restratification. Objective Data Objective Data Vital Signs: Vital Signs Temp Pulse Resp BP Pulse Ox O2 Del Method 98.3 F 74 18 100/69 96 Room Air 08/27/25 09:05 08/27/25 09:08 08/27/25 09:05 08/27/25 09:05 08/27/25 09:05 08/27/25 09:05 Oxygen Delivery Method Room Air Weight: 199 lb 1.239 oz Body Mass Index (BMI) 30.2 Intake & Output: Intake and Output for Last 24 Hours 08/25/25 08/26/25 08/27/25 23:59 23:59 23:59 Intake Total 1800 / 1800 30.5 / 510.5 480 / 480 Output Total 1000 / 1700 850 / 850 Balance 1800 / 1800 -969.5 / -1189.5 -370 / -370 Lab / Micro Data 08/27/25 06:04 08/27/25 06:04 Labs: Laboratory Results - last 24 hr 08/27/25 06:04: WBC 12.8 H, RBC 3.11 L, Hgb 8.7 L, Hct 27.1 L, MCV 87.1, MCH 28.0, MCHC 32.1, RDW Std Deviation 45.8 H, RDW Coeff of Marilyn 14.4, Plt Count 482 H, MPV 8.0, Immature Gran % (Auto) 1.500 H, Neut % (Auto) 65.0, Lymph % (Auto) 18.8 L, [place] % (Auto) 10.4 H, Eos % (Auto) 4.0, Baso % (Auto) 0.3, Absolute Neuts (auto) 8.3 H, Absolute Lymphs (auto) 2.42, Nucleated RBC % 0, Sodium 135, Potassium 3.9, Chloride 104, Carbon Dioxide 24.5, Anion Gap 7, BUN 22 H, Creatinine 1.76 H, Estim Creat Clear Calc 31.05 L, Est GFR (MDRD) Non-Af 37 L, BUN/Creatinine Ratio 12.4, Glucose 96, Calcium 8.6 Micro: Microbiology 08/25/25 11:45 Stool Stool Occult Blood (THUAN) - Final Occult Blood Positive Radiography Diagnostic Testing: Radiology Impression Venous Doppler Study 08/25/25 17:43 Interpretation Summary Acute deep vein thrombosis is noted in the left gastrocnemius vein. Deep veins of the right lower extremity are patent and compressible segmentally. There is no evidence of right lower extremity deep vein thrombosis. The bilateral great saphenous veins appear patent and compressible segmentally. Ordering Physician: Armadno Norton Referring Physician: Negro Messer Performed By: Jon Hammond RVT Echocardiogram 08/25/25 18:37 Interpretation Summary The study was technically difficult. Moderate global LV hypokinesis. Estimated LVEF 40-45%. Stage I diastolic dysfunction. Moderate (2+) mitral valve insufficiency. Mild (1+) tricuspid valve insufficiency. Aortic sclerosis, no stenosis. Mild (1+) pulmonic valve insufficiency. Ordering Physician: Armando Norton Performed By: Dave Aaron RCS Physical Exam Const alert, oriented x3 and no apparent distress Constitutional Narrative: frail General Appearance: cooperative and comfortable HEENT normocephalic, head/scalp atraumatic, hearing grossly normal bilaterally, nasal mucous membranes and turbinates normal and moist oral mucous membranes Eyes PERRL, EOMs intact bilaterally and conjunctivae normal Neck full ROM and supple Lymph Lymphatic: no lymphedema noted Chest inspection of chest normal Resp Resp Narrative: mildly diminished breath sounds bibasally, no wheezes or crackles. on room air. Cardio regular rate, regular rhythm, S1 normal heart sound, S2 normal heart sound, no murmurs and peripheral pulses 2+ throughout GI normal to inspection, nondistended, normoactive bowel sounds, soft to palpation, non-tender and non-distended Back/Spine normal ROM Extremity normal to inspection, full ROM, normal capillary refill, no clubbing, cyanosis or edema, no calf tenderness and no pedal edema General Extremity: no tenderness to palpation of joints or extremities Skin no rashes or lesions noted General Skin Exam: no breakdown Neuro no focal motor deficits and no sensory deficits noted Motor Exam: general weakness Psych mental status grossly normal, thought process normal and cooperative Appearance: appropriate Assessment & Plan Assessment/Plan (1) Acute on chronic blood loss anemia: (2) Pulmonary embolism: QUALIFIERS: Pulmonary embolism type: other Chronicity: acute Acute cor pulmonale presence: unspecified Qualified Code(s): I26.99 - Other pulmonary embolism without acute cor pulmonale (3) GI bleed: QUALIFIERS: GI bleed type/associated pathology: melena Qualified Code(s): K92.1 - Melena PLAN: Plan #Acute on chronic blood loss anemia due to lower GI bleed and 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 CT of the abdomen and pelvis showed possible right sided colonic cancer. He followed with gastroenterology but was deemed to not be a candidate for colonoscopy due to his HFrEF and EF of 20-25% However he started having dark stools again CTA abdomen and pelvis here showed asymmetric wall thickening of the cecum, concerning for colon cancer. Left transfusion 2 days of packed red blood cells. had colonoscopy yesterday which showed large partially obstructing cecal mass. Per Dr. Rivera the general surgeon, the earliest he can get him in for a right hemicolectomy is September 17. He would want cardiac clearance prior to that. I spoke to Dr Duffy yesterday about cardiac risk stratification, and he recommended patient following up with his cardiology team at [facility]. Patient however would prefer to see cardiology here; will discuss with jose luis daughter. #Acute PE CT of the operative pelvis picked up explore for late effects in the left lower while lobe pulmonary artery consistent with PE but no evidence of right heart strain. Vascular surgery was consulted and he had an IVC filter inserted. 2D echo showed EF of 40% with moderatel LV global hypokinesis and stage I diastolic dysfunction. Duplex showed acute DVT in the left gastrocnemius vein #HFrEF echo in March showed EF of 20-25% with global LV dysfunction and no significant valvular disease. Repeat 2D echo as above on metoprolol, torsemide #Hypertension: on torsemide and metoprolol #Hyperlipidemia: on statin #CKD IIIb: Cr at baseline. Will continue monitoring. #GERD: on PPI. DVT prophylaxis: SCDs CODE STATUS: DNRCCA with intubation Charges/Coding Visit Charges Inpatient E&M: 76059 Subs Hosp L2
--- NOTE | 2025-08-27 11:02 | CASEMGMT ---
Social Work SW completed the PASSR in [facility]. A copy of the PASSR is in the chart. EMMANUEL Sotelo
--- NOTE | 2025-08-27 15:37 | CASEMGMT ---
Social Work SW spoke with the patient about returning to [facility] or SNF. Patient stated he wants to return to his room and he thinks he will be more comfortable there. He reported he uses a wheelchair at the [facility]. Patient walked with a walker today in therapy. EMMANUEL Sotelo
--- NOTE | 2025-08-27 15:59 | CASEMGMT ---
Social Work Patient to return to [facility], PASSR completed and in the patient's chart, and transport form started with the green sheet on the chart, should DC Saturday. EMMANUEL Sotelo
[2025-08-28 02:30] VITALS: BP 96/56; PULSE 57; RESP 15; TEMP 36.6; O2SAT 94
[2025-08-28 06:31] LABS: Hematocrit 25.0 % (40-54); Hemoglobin 8.1 g/dL (13.0-16.5); Immature Granulocytes Count 0.250 X10^3/uL (0.0-0.0); Mean Corp Hgb Conc 32.4 g/dL (32-36); Mean Corpuscular Volume 88.0 fL (80-94); Mean Platelet Vol. 8.2 fl (6.2-12.0); NRBC Flagged by Analyzer 0 % (0-5); POSITIVE DIFFERENTIAL YES; Platelet Count 474 K/mm3 (150-450); RBC Distribution Width CV 13.9 % (11.6-14.6); RBC Distribution Width SD 44.1 fl (35.1-43.9); Red Blood Count 2.84 M/mm3 (4.6-6.2); White Blood Count 14.3 K/mm3 (4.4-11.0)
[2025-08-28 06:36] LABS: Differential Indicated SCAN CRITERIA MET
[2025-08-28 07:00] VITALS: PULSE 54
[2025-08-28 07:00] LABS: Anion Gap 11 (5-15); BUN 22 mg/dL (4-19); BUN/Creat Ratio 11.3 RATIO (10-20); Calcium,Total 8.5 mg/dL (7.6-11.0); Carbon Dioxide 25.0 mmol/L (21.0-32.0); Chloride 99 mmol/L (98-108); Estimated Creatinine Clearance 28.03 ml/min (50-250); Glucose 96 mg/dL (70-99); Potassium 3.5 mmol/L (3.3-5.1)
[2025-08-28 08:03] LABS: Differential Comment SCANNED
[2025-08-28 08:04] LABS: Acanthocytes RARE; Anisocytosis 1+
[2025-08-28 08:58] VITALS: BP 113/62; PULSE 52; RESP 16; TEMP 36.6; O2SAT 96
[2025-08-28 09:01] VITALS: PULSE 54
[2025-08-28] MEDS: Metoprolol(XL)Succ 25 MG Tablet PO (09:01)
--- NOTE | 2025-08-28 09:16 | PCM.PN.SRG ---
Subjective Subjective hb 8.1, denies abd pain Objective Data Objective Data Vital Signs: Vital Signs Temp Pulse Resp BP Pulse Ox O2 Del Method 97.8 F 54 L 16 113/62 96 Room Air 08/28/25 08:58 08/28/25 09:01 08/28/25 08:58 08/28/25 08:58 08/28/25 08:58 08/28/25 08:58 Oxygen Delivery Method Room Air Weight: 199 lb 1.239 oz Body Mass Index (BMI) 30.2 Intake & Output: Intake and Output for Last 24 Hours 08/26/25 08/27/25 08/28/25 23:59 23:59 23:59 Intake Total 30.5 / 510.5 980 / 980 400 / 400 Output Total 1000 / 1700 1600 / 1600 780 / 780 Balance -969.5 / -1189.5 -620 / -620 -380 / -380 Lab / Micro Data 08/28/25 05:41 08/28/25 05:41 Labs: Laboratory Results - last 24 hr 08/28/25 05:41: WBC 14.3 H, RBC 2.84 L, Hgb 8.1 L, Hct 25.0 L, MCV 88.0, MCH 28.5, MCHC 32.4, RDW Std Deviation 44.1 H, RDW Coeff of Marilyn 13.9, Plt Count 474 H, MPV 8.2, Immature Gran % (Auto) 1.700 H, Neut % (Auto) 61.6, Lymph % (Auto) 20.3, [place] % (Auto) 11.7 H, Eos % (Auto) 4.3, Baso % (Auto) 0.4, Absolute Neuts (auto) 8.8 H, Absolute Lymphs (auto) 2.90, Nucleated RBC % 0, Differential Comment SCANNED, Platelet Estimate SLT INC, Anisocytosis 1+, Ovalocytes 1+, Acanthocytes (Spur) RARE, Sodium 135, Potassium 3.5, Chloride 99, Carbon Dioxide 25.0, Anion Gap 11, BUN 22 H, Creatinine 1.95 H, Estim Creat Clear Calc 28.03 L, Est GFR (MDRD) Non-Af 32 L, BUN/Creatinine Ratio 11.3, Glucose 96, Calcium 8.5 Micro: Microbiology 08/25/25 11:45 Stool Stool Occult Blood (THUAN) - Final Occult Blood Positive Physical Exam Narrative Alert and oriented x 3. He is in no acute distress. Abdomen soft, nontender nondistended. Const no apparent distress Assessment & Plan Assessment/Plan (1) GI bleed: QUALIFIERS: GI bleed type/associated pathology: melena Qualified Code(s): K92.1 - Melena PLAN: Plan The patient is a 89-year-old male admitted with anemia. 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 Patient will need cardiac clearance prior to surgery. Cardiology recommended going to [facility] patient did not want to go back to [facility] and preferred to stay here per previous notes. Dr. Rivera tentatively planning for colectomy as an outpatient once H&H corrected. Dolores San M.D. Pager: [phone] [facility] [address] [place] [address], [address] [place] [address] Office: [phone] Charges/Coding Visit Charges Inpatient E&M: 03504 Subs Hosp L2
--- NOTE | 2025-08-28 12:35 | PCM.DC ---
Discharge Instructions DC O2, CPAP, BIPAP needs Home O2 Discharge instructions: No Dressing / Incision Discharge Activity: Return to Normal Activity Weight Bearing Status: Weight bearing as tolerated Dressing / Incision Call your doctor if you observe: Fever of 101 or Higher, Shortness of breath, Dizziness, Swelling in the ankles, Chest pain, Increased palpitations (irregular heartbeat) and Uncontrolled pain Follow Up Care Test Results: Test results from this visit will be discussed in further detail at your follow-up appointment, if applicable. Discharge Plan Admission Admit Date/Time: 08/25/25 15:06 Primary Reason for Your Visit: acute on chronic anemia, GI bleed Attending Provider: Minal Dia Primary Care Provider: Negro Messer Consulting Providers: Wei Freeman; Ayush Chen; Jessica Zuniga; Lucero Martines; Rashida Andrews; Conrad Rivera; Boris Dominguez; Loretta Marc; Armando Norton Instructions Patient Instructions: Anemia, Colorectal Cancer Additional Instructions / Restrictions: follow up with your welding technician at [facility] on outpatient basis for preop cardiac risk stratification for the colon cancer surgery within 1-2 weeks. Discharge Orders/Prescriptions Prescriptions: Continued atorvastatin 20 mg tablet 20 mg PO DAILY metoprolol succinate 25 mg tablet extended release 24 hr 25 mg PO DAILY ferrous sulfate [FeroSul] 325 mg (65 mg iron) tablet 325 mg PO DAILY torsemide 20 mg tablet 20 mg PO DAILY omeprazole 40 mg capsule,delayed release(DR/EC) 40 mg PO DAILY Referrals / Follow Up: Conrad Rivera MD [Med Staff - Active Staff, General Surgery] - Within 1 Week Referral Note: see to set up surgery for colon cancer on September 17, 2025. Negro Messer MD [Primary Care Provider, Medical] - Within 1 Week Disposition Disposition (needs filled in before D/C Order can be placed): Assisted Living
--- NOTE | 2025-08-28 12:36 | DS.PCM_ITS ---
Providers Date of Admission: 08/25/25 Date of Discharge: 08/28/25 Primary Care Physician: Dr. 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 EMERGENT Consult: No MD Notified: Yes Date Notified: 08/25/25 Time Notified: 18:20 Method of Notification: Text Consult: General Surgery Routine Consulting Provider: Conrad Rivera Reason for Consult: suspected cecal ca w/ GIB and anemia EMERGENT Consult: No Notified: Yes Date Notified: 08/25/25 Time Notified: 18:22 Method of Notification: Text Consult: Inpatient Palliative Care Routine Consulting Provider: Loretta Marc Reason for Consult: goals of care, code status discussion EMERGENT Consult: No Notified: Yes Date Notified: 08/25/25 Time Notified: 18:24 Method of Notification: Text Consult: Vascular Surgery Routine Consulting Provider: Boris Dominguez Reason for Consult: PE w/ GI bleed and anemia, eval for IVC filter EMERGENT Consult: No Notified: Yes Date Notified: 08/25/25 Time Notified: 15:09 Method of Notification: ED Physician Initiated Reason For Visit: ACUTE ON CHRONIC ANEMIA W/SUSPECT LGIB Diagnosis Discharge Diagnosis (1) GI bleed: Status: Acute Code(s): K92.2 - Gastrointestinal hemorrhage, unspecified Qualifiers: GI bleed type/associated pathology: melena Qualified Code(s): K92.1 - Melena Plan #Acute on chronic blood loss anemia due to lower GI bleed and 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 CT of the abdomen and pelvis showed possible right sided colonic cancer. * He followed with gastroenterology but was deemed to not be a candidate for colonoscopy due to his HFrEF and EF of 20-25% * However he started having dark stools again * CTA abdomen and pelvis here showed asymmetric wall thickening of the cecum, concerning for colon cancer. * Left transfusion 2 days of packed red blood cells. * had colonoscopy yesterday which showed large partially obstructing cecal mass. * Per Dr. Rivera the general surgeon, the earliest he can get him in for a right hemicolectomy is September 17. He would want cardiac clearance prior to that. * I spoke to Dr Duffy yesterday about cardiac risk stratification, and he recommended patient following up with his cardiology team at [facility]. Patient however would prefer to see cardiology here; will discuss with jose luis daughter. * #Acute PE * CT of the operative pelvis picked up explore for late effects in the left lower while lobe pulmonary artery consistent with PE but no evidence of right heart strain. * Vascular surgery was consulted and he had an IVC filter inserted. * 2D echo showed EF of 40% with moderatel LV global hypokinesis and stage I diastolic dysfunction. * Duplex showed acute DVT in the left gastrocnemius vein * #HFrEF * echo in March showed EF of 20-25% with global LV dysfunction and no significant valvular disease. * Repeat 2D echo as above * on metoprolol, torsemide * #Hypertension: on torsemide and metoprolol #Hyperlipidemia: on statin #CKD IIIb: Cr at baseline. Will continue monitoring. #GERD: on PPI. DVT prophylaxis: SCDs CODE STATUS: DNRCCA with intubation Medications at Discharge Home Medications atorvastatin 20 mg tablet 20 mg PO DAILY cholesterol 08/25/25 ferrous sulfate 325 mg (65 mg iron) tablet (FeroSul) 325 mg PO DAILY supplement 08/25/25 metoprolol succinate 25 mg tablet,extended release 24 hr 25 mg PO DAILY blood pressure 08/25/25 omeprazole 40 mg capsule,delayed release 40 mg PO DAILY reflux 08/25/25 torsemide 20 mg tablet 20 mg PO DAILY diuretic 08/25/25 Hospital Course Operations None Procedures Colonoscopy Summary of Care Provided Minutes Spent on Discharge: 45 Hospital Course: Patient is an 89-year-old male with past medical history as outlined was admitted through the ED on 08/25/2025 from his assisted living facility with a complaint of ongoing dark stools and acute on chronic anemia. Outpatient labs done. He had been seen at [facility] from 04/05 to 04/17/2025 and was admitted there for acute on chronic hypoxic and hypercapnic respiratory failure due to volume overload in the setting of acute heart failure with reduced EF. 2D echo done today showed EF of 20 to 25% which was new. He had bilateral thoracentesis during that admission and was also diuresed. He was found to have worsening anemia during that admission and CT of the abdomen and pelvis showed mural thickening of the cecum and terminal ileum. Plan was for outpatient colonoscopy and was subsequently discharged to a SNF. He then moved to assisted living at the [facility]. He was seen at the ED at [facility] in July 2025 for acute on chronic anemia and required a blood transfusion with improvement. It was discussed with GI then who did not see the need for urgent colonoscopy as there was concern about his ability to tolerate a colonoscopy. On the day of admission to [facility] he had outpatient labs done which showed hemoglobin of 5.9 which was down from 6.4 on 08/18/2025 and 7.1 on 08/11/2025. He had also been having dark stools. CTA of the abdomen and pelvis during this admission showed an asymmetric wall thickening of the cecum concerning for colon cancer and a filling defect in the left lobar pulmonary artery consistent with PE with no evidence of right heart strain. General surgery and vascular surgery as well as gastroenterology were consulted. Patient had an IVC filter placed by vascular surgery on the day of admission. He was admitted and managed for acute on chronic anemia due to probable colon cancer. 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 General surgery on board and stated that the earliest they could do surgery was September 17, 2024. However they wanted patient to have cardiac preop restratification before he had the surgery. I discussed this with patient's daughter as I had spoken to the house cleaner on-call Dr. Duffy here who recommended that patient go back to [facility] to see his house cleaner therefore precancer surgery cardiac restratification. Patient had wanted to stay at [place] but I spoke to his daughter and she said patient had an appointment in early September with his house cleaner with [facility] in [place] and so she will take him there for the restratification. Patient was therefore discharged back to his assisted living at the [facility] on 08/28/2025. He is follow-up with his primary care doctor and general surgery within 1 to 2 weeks. Of note he also had EGD which showed normal esophagus with no gross lesions in the entire stomach and chronic duodenitis which was biopsied. Patient seen and examined prior to discharge. He had no active complaints. His nurse was by his bedside. Review of systems otherwise negative. Labs and vitals reviewed. Home medication reviewed and reconciled. Physical Exam Const alert, oriented x3 and no apparent distress Constitutional Narrative: frail General Appearance: cooperative and comfortable Orientation / Consciousness: awake HEENT normocephalic, head/scalp atraumatic, hearing grossly normal bilaterally, nasal mucous membranes and turbinates normal and moist oral mucous membranes Eyes PERRL, EOMs intact bilaterally and conjunctivae normal Neck full ROM, no lymphadenopathy and supple Lymph Lymphatic: no lymphedema noted Chest inspection of chest normal Resp Resp Narrative: mildly diminished breath sounds bibasally, no wheezes or crackles. on room air. Cardio regular rate, regular rhythm, S1 normal heart sound, S2 normal heart sound, no murmurs and peripheral pulses 2+ throughout GI normal to inspection, nondistended, normoactive bowel sounds, soft to palpation, non-tender and non-distended Back/Spine normal ROM Extremity normal to inspection, full ROM, normal capillary refill, no clubbing, cyanosis or edema, no calf tenderness and no pedal edema General Extremity: no tenderness to palpation of joints or extremities Skin no rashes or lesions noted General Skin Exam: no breakdown Neuro oriented x3, moves all extremities, no focal motor deficits and no sensory deficits noted Sensorium / Orientation: awake and alert Motor Exam: general weakness Psych mental status grossly normal, thought process normal and cooperative Appearance: appropriate Weight / BMI Weight Weight: 199 lb 1.239 oz Body Mass Index (BMI) 30.2 ABG / Lab / Microbiology Data 08/28/25 05:41 08/28/25 05:41 Laboratory: Laboratory Results - last 24 hr 08/28/25 05:41: WBC 14.3 H, RBC 2.84 L, Hgb 8.1 L, Hct 25.0 L, MCV 88.0, MCH 28.5, MCHC 32.4, RDW Std Deviation 44.1 H, RDW Coeff of Marilyn 13.9, Plt Count 474 H, MPV 8.2, Immature Gran % (Auto) 1.700 H, Neut % (Auto) 61.6, Lymph % (Auto) 20.3, [place] % (Auto) 11.7 H, Eos % (Auto) 4.3, Baso % (Auto) 0.4, Absolute Neuts (auto) 8.8 H, Absolute Lymphs (auto) 2.90, Nucleated RBC % 0, Differential Comment SCANNED, Platelet Estimate SLT INC, Anisocytosis 1+, Ovalocytes 1+, Acanthocytes (Spur) RARE, Sodium 135, Potassium 3.5, Chloride 99, Carbon Dioxide 25.0, Anion Gap 11, BUN 22 H, Creatinine 1.95 H, Estim Creat Clear Calc 28.03 L, Est GFR (MDRD) Non-Af 32 L, BUN/Creatinine Ratio 11.3, Glucose 96, Calcium 8.5 Microbiology: Microbiology 08/25/25 11:45 Stool Stool Occult Blood (THUAN) - Final Occult Blood Positive D/C Instructions Discharge Activity: Return to Normal Activity Weight Bearing Status: Weight bearing as tolerated Call your doctor if you observe: Fever of 101 or Higher, Shortness of breath, Dizziness, Swelling in the ankles, Chest pain, Increased palpitations (irregular heartbeat) and Uncontrolled pain DC O2, CPAP, BIPAP Needs Home O2 Discharge instructions: No DC home with Oxygen: No Patient's Goals Of Care - F/U Goals Reviewed Goals of care reviewed with patient: Yes - No change Meaningful Use Info Meaningful Use Meaningful Use Diagnoses (Choose all that apply): None applicable Discharge Plan Admission Admit Date/Time: 08/25/25 15:06 Primary Reason for Your Visit: acute on chronic anemia, GI bleed Attending Provider: Minal Dia Primary Care Provider: Negro Messer Consulting Providers: Wei Freeman; Ayush Chen; Jessica Zuniga; Lucero Martines; Rashida Andrews; Conrad Rivera; Boris Dominguez; Loretta Mckeon; Armando Norton Instructions Patient Instructions: Anemia, Colorectal Cancer Additional Instructions / Restrictions: follow up with your house cleaner at [facility] on outpatient basis for preop cardiac risk stratification for the colon cancer surgery within 1-2 weeks. Discharge Orders/Prescriptions Prescriptions: Continued atorvastatin 20 mg tablet 20 mg PO DAILY metoprolol succinate 25 mg tablet extended release 24 hr 25 mg PO DAILY ferrous sulfate [FeroSul] 325 mg (65 mg iron) tablet 325 mg PO DAILY torsemide 20 mg tablet 20 mg PO DAILY omeprazole 40 mg capsule,delayed release(DR/EC) 40 mg PO DAILY Referrals / Follow Up: Conrad Rivera MD [Med Staff - Active Staff, General Surgery] - Within 1 Week Referral Note: see to set up surgery for colon cancer on September 17, 2025. Negro Messer MD [Primary Care Provider, Medical] - Within 1 Week Disposition Disposition (needs filled in before D/C Order can be placed): Assisted Living Charges/Coding Visit Charges Inpatient E&M: 23178 Disch Hosp >30min
== END 2025-08-28 15:40 | disposition home or self-care (01) | DRG 374 ==
LOC: ED 15:12 → CLINP 16:17 → CLSP 17:59 → CLINP 19:19 → PCU 19:19
PROVIDERS: Anesthesiology; Internal Medicine Gastroenterology; Admitting Provider Hospitalist; Emergency Provider Surgery; PCP Internal Medicine; Visit Provider Student in an Organized Health Care Education/Training Program
PROC: 0DJD8ZZ Inspection of Lower Intestinal Tract, Via Natural or Artificial Opening Endoscopic (ICD-10-PCS; CPT 45378; principal; 2025-08-26 12:25)
DX: C18.0 Malignant neoplasm of cecum (principal); I26.99 Other pulmonary embolism without acute cor pulmonale; I13.0 Hypertensive heart and chronic kidney disease with heart failure and stage 1 through stage 4 chronic kidney disease, or unspecified chronic kidney disease; D62 Acute posthemorrhagic anemia; I50.22 Chronic systolic (congestive) heart failure; Z66 Do not resuscitate; N18.32 Chronic kidney disease, stage 3b; D50.9 Iron deficiency anemia, unspecified; E66.811 Obesity, class 1; E78.5 Hyperlipidemia, unspecified; K21.9 Gastro-esophageal reflux disease without esophagitis; I25.10 Atherosclerotic heart disease of native coronary artery without angina pectoris; K63.5 Polyp of colon; K57.30 Diverticulosis of large intestine without perforation or abscess without bleeding; I82.462 Acute embolism and thrombosis of left calf muscular vein; Z79.899 Other long term (current) drug therapy; Z87.891 Personal history of nicotine dependence; Z68.29 Body mass index [BMI] 29.0-29.9, adult
CPT/HCPCS: 36415; 37191; 74174; 76937; 80048; 80053; 80076; 82274; 83605; 85014; 85018; 85025; 85027; 85610; 85730; 86850; 86900; 86901; 88305; 88341; 88342; 93005; 93306; 93970; 94668; 97162; 97166; 99152; 99285; C1894; P9016; Q9957; Q9967; A4216; C1769; C1880; C8929

== ENCOUNTER → 2025-09-01 04:00 | Outpatient (REF) | payer MEDICARE, BC, SELFPAY ==
--- OUTSIDE RECORDS SUMMARY | 2025-09-01 03:32 | XMS RPT_ITS | CCD ---
Author Organization [facility] Care Team Providers Care Behavioral Health Consultant Name Role Phone Aliya Tadeo RN Unavailable Unavailable Deperro OLS, Ravi Attending Unavailable Ghourb[facility], [facility] Unavailable G[facility], [facility] Unavailable Deperro OLS, Ravi Attending Unavailable Deperro OLS, Ravi Attending Unavailable Ghourbrial, [facility] Unavailable Deperro OLS, Ravi Attending Unavailable Ghour[facility], [facility] Unavailable Deperro OLS, Ravi Attending Unavailable Ghourbrial, [facility] Unavailable Deperro OLS, Ravi [...] sennosides, senior living 8.6 mg oral tablet (15 sources) Start: [...] Start: 04-05-2025 End: 04-06-2025 polyethylene glycol 3350 33771 mg powder for oral solution (4 sources) [...] Coronary arteriosclerosis; Translations: [Atherosclerotic heart disease of [place] coronary artery without angina pectoris] Onset: [...] SCREEN Mando 07-19-2025 ABO GROUPING A Normal [facility] Comment on above: Performed By: #### L [id number] ####Mammal Keeper: UNA ARCE ([phone])[facility] ([facility])[address] RH TYPE IN BLOOD Negative Normal [facility] Comment on above: Performed By: #### L AB276 ####Mammal Keeper: UNA ARCE ([phone])[facility] ([facility])[address] [place], [place] [id number] [place] [address] Basic Metabolic Profile (BMP )on 07-19-2025 BUN/CRE 17.2 RATIO Normal 10-20 [facility] Comment on above: Order Comment: 542.1 Performed By: #### L 500.2500, L100.0500 #### [facility] [address] [place], [address] Calcium [Mass/Vol] 8.6 mg/dL Normal 7.6-11.0 [facility] Comment on above: Order Comment: 542.1 Performed By: #### L 500.2500, L100.0500 #### [facility] [address] [place], [address] Chloride [Moles/Vol] 99 mmol/L Normal 98-108 [facility] Comment on above: Order Comment: 542.1 Performed By: #### L 500.2500, L100.0500 #### [facility] [address] [place], [address] CO2 [Moles/Vol] 28.6 mmol/L Normal 21.0-32.0 [facility] Comment on above: Order Comment: 542.1 Performed By: #### L 500.2500, L100.0500 #### [facility] [address] [place], [address] Creatinine [Mass/Vol] 1.77 mg/dL High 0.70-1.20 [facility] Comment on above: Order Comment: 542.1 Performed By: #### L 500.2500, L100.0500 #### [facility] [address] [place], [address] GAP 9 Normal 5-15 [facility] Comment on above: Order Comment: 542.1 Performed By: #### L 500.2500, L100.0500 #### [facility] [address] [place], [address] GFR/1.73 sq M.predicted among non-blacks MDRD (S/P/Bld) [Vol rate/Area] 36 mL/min/{1.73_m2} Low >60 [facility] Comment on above: Order Comment: 542.1 Result Comment: mL/m in/1.73m2 CKD-EPI Creatinine Equation (2020) Performed By: #### L 500.2500, L100.0500 #### [facility] [address] [place], [address] Glucose [Mass/Vol] 93 mg/dL Normal 70-99 [facility] Comment on above: Order Comment: 542.1 Performed By: #### L 500.2500, L100.0500 #### [facility] [address] [place], [address] Potassium [Moles/Vol] 3.7 mmol/L Normal 3.3-5.1 [facility] Comment on above: Order Comment: 542.1 Performed By: #### L 500.2500, L100.0500 #### [facility] [address] [place], [address] Sodium [Moles/Vol] 137 mmol/L Normal 133-145 [facility] Comment on above: Order Comment: 542.1 Performed By: #### L 500.2500, L100.0500 #### [facility] [address] [place], [address] Urea nitrogen [Mass/Vol] 30 mg/dL High 4-19 [facility] Comment on above: Order Comment: 542.1 Performed By: #### L 500.2500, L100.0500 #### [facility] [address] [place], [address] Blood type and Crossmatch keagan victor (Bld)on 07-19-2025 ABO group Froilan (Bld) A [facility] Blood group antibody screen GEL Ql Negative [facility] D Ag Ql (RBC) Negative [facility] CBC W Auto Differential pane l (Bld)Ordered By: Haroldo Alvarez on 07-19-2025 Erythrocyte distribution width (RBC) [Ratio] 14.0 % 11.5 - 15.0 % [facility] Hematocrit (Bld) [Volume fraction] 24.6 % Low 40.0 - 52.0 % [facility] Hemoglobin (Bld) [Mass/Vol] 7.8 g/dL Low 13.0 - 18.0 g/dL [facility] Interpretation and review of laboratory results Abnormal [facility] MCH (RBC) [Entitic mass] 29.2 pg 26. 0 - 34.0 pg [facility] MCHC (RBC) [Mass/Vol] 31.7 % 30.5 - 36.0 % [facility] MCV (RBC) [Entitic vol] 92.1 fL 77.0 - 99.0 fL [facility] Platelet mean volume (Bld) [Entitic vol] 8.3 fL Low 9.0 - 12.7 fL [facility] Platelets (Bld) [#/Vol] 581 10*3/uL High 140 - 440 10*3/uL [facility] RBC (Bld) [#/Vol] 2.67 10*6/uL Low 4.40 - 5.9 0 10*6/uL [facility] WBC (Bld) [#/Vol] 15.6 10*3/uL High 3.6 - 10.7 10*3/uL [facility] CBC WITH AUTO DIFFERENTIALon 07-19-2025 Erythrocyte distribution width (RBC) [Ratio] 14.0 % Normal 11.5-15.0 [facility] Comment on above: Performed By: #### L NL7818, [id number] ####Mammal Keeper: UNA ARCE ([id number])[facility] ([address] Hematocrit (Bld) [Volume fraction] 24.6 % Low 40.0-52.0 [facility] Comment on above: Performed By: #### L [id number], [id number] ####Mammal Keeper: UNA ARCE ([id number])[facility] (SBHLAB)[address] Hemoglobin (Bld) [Mass/Vol] 7.8 g/dL Low 13.0-18.0 [facility] Comment on above: Performed By: #### L AN0759, [id number] ####Mammal Keeper: UNA YAZMIN ([id number])[facility] (SB[facility])[address] MCH (RBC) [Entitic mass] 29.2 pg Normal 26.0-34.0 [facility] Comment on above: Performed By: #### L DH1114, [id number] ####Mammal Keeper: UNA BERMUDEZPEDRO ([phone])[facility]ITAL[facility] (SB[facility])[address] MCHC 31.7 % Normal 30.5-36.0 [facility] Comment on above: Performed By: #### L [id number], [id number] ####Mammal Keeper: UNA ARCE ([id number])[facility]ITAL[facility] (SB[facility])[address] MCV (RBC) [Entitic vol] 92.1 fL Normal 77.0-99.0 [facility] Comment on above: Performed By: #### L YC2540, [id number] ####Mammal Keeper: UNA ARCE ([phone])[facility]ITAL[facility] [place] (SBHLAB)[address] Platelet mean volume (Bld) [Entitic vol] 8.3 fL Low 9.0-12.7 [facility] Comment on above: Performed By: #### L AP1119, [id number] ####Mammal Keeper: UNA ARCE ([id number])[facility] (SB[facility])[address] Platelets (Bld) [#/Vol] 581 10*3/uL High 140-440 [facility] Comment on above: Performed By: #### L QD9415, [id number] ####Mammal Keeper: UNAANJEL ARCE ([id number])[facility] (SB[facility])[address] [place] [address] RBC (Bld) [#/Vol] 2.67 10*6/uL Low 4.40-5.90 [facility] Comment on above: Performed By: #### L VT6198, [id number] ####Mammal Keeper: UNAANJEL ARCE ([id number])[facility] [place] (SB[facility])[address] [place] [address] WBC (Bld) [#/Vol] 15.6 10*3/uL High 3.6-10.7 [facility] Comment on above: Performed By: #### L SC1483, [id number] ####Mammal Keeper: UNAANJEL ARCE ([phone])[facility] (SB[facility])[address] [place] [address] CBC-Complete Blood Cnt No [facility] 07-19-2025 Erythrocyte distribution width (RBC) [Ratio] 14.1 % Normal 11.6-14.6 [facility] Comment on above: Order Comment: 542.1 Performed By: #### L 500.2500, L100.0500 #### [facility] [address] [place], [address] Hematocrit (Bld) [Volume fraction] 21.2 % Low 40-54 [facility] Comment on above: Order Comment: 542.1 Performed By: #### L 500.2500, L100.0500 #### [facility] [address] [place], [address] Hemoglobin (Bld) [Mass/Vol] 6.6 g/dL Low 13.0-16.5 [facility] Comment on above: Order Comment: 542.1 Performed By: #### L 500.2500, L100.0500 #### [facility] [address] [place], [address] MCH (RBC) [Entitic mass] 28.9 pg Normal 27.0-32.0 [facility] Comment on above: Order Comment: 542.1 Performed By: #### L 500.2500, L100.0500 #### [facility] [address] [place], [address] MCHC (RBC) [Mass/Vol] 31.1 g/dL Low 32-36 [facility] Comment on above: Order Comment: 542.1 Performed By: #### L 500.2500, L100.0500 #### [facility] [address] [place], [address] MCV (RBC) [Entitic vol] 93.0 fL Normal 80-94 [facility] Comment on above: Order Comment: 542.1 Performed By: #### L 500.2500, L100.0500 #### [facility] [address] [place], [address] Platelet mean volume (Bld) [Entitic vol] 8.5 fL Normal 6.2-12.0 [facility] Comment on above: Order Comment: 542.1 Performed By: #### L 500.2500, L100.0500 #### [facility] [address] [place], [address] Platelets (Bld) [#/Vol] 516 10*3/uL High 150-450 [facility] Comment on above: Order Comment: 542.1 Performed By: #### L 500.2500, L100.0500 #### [facility] [address] [place], [address] RBC (Bld) [#/Vol] 2.28 10*6/uL Low 4.6-6.2 [facility] Comment on above: Order Comment: 542.1 Performed By: #### L 500.2500, L100.0500 #### [facility] [address] [place], [address] RDW SD 47.1 fl High 35.1-43.9 [facility] Comment on above: Order Comment: 542.1 Performed By: #### L 500.2500, L100.0500 #### [facility] [address] [place], [address] WBC (Bld) [#/Vol] 12.9 10*3/uL High 4.4-11.0 [facility] Comment on above: Order Comment: 542.1 Performed By: #### L 500.2500, L100.0500 #### [facility] [address] [place], [address] ED Nursing Noteon 07-19-2025 ED Nursing Note [facility] arrived to transport pt to home facility . Pt transferred to stretcher without difficulty. Pt A&O, calm, and cooperative, no signs of distress noted. VS stable. Resp even, non labored. Normal [facility] ED Nursing Note Report given to [facility]. Marleni Normal [facility] ED Nursing Note Post H&H not needed per Dr. Rose. Ok to dc 30 mins after unit is complete. Normal [facility] ED Nursing Note Meal order placed Normal [facility] ED Nursing Note This RN sat bedside for the first 15 mins of blood transfusion. Pt denied c/o any transfusion reaction symptoms. Pt's vitals rechecked before leaving the room. Normal [facility] ED Provider Noteon ED Provider Note Normal [facility] MANUAL DIFFERENTIALon 2024 BASOPHILS (10*3/UL) IN BLOOD BY MANUAL COUNT 0.3 10*3/uL High 0.0-0.2 [facility] Comment on above: Performed By: #### L [id number], [id number] ####Mammal Keeper: UNA ARCE ([id number])[facility] (SBHLAB)[address] [place] [address] BASOPHILS/100 LEUKOCYTES IN BLOOD BY MANUAL COUNT 2 % Normal 0-2 [facility] Comment on above: Performed By: #### L [id number], [id number] ####Mammal Keeper: UNA ARCE ([id number])[facility] [place] ([facility])[address] CELLS COUNTED TOTAL (#) IN BLOOD 100 Normal [facility] Comment on above: Performed By: #### L [id number], [id number] ####Mammal Keeper: UNA ARCE ([id number])[facility] [place] (SB[facility])[address] DIFFERENTIAL METHOD Manual differential performed Normal [facility] Comment on above: Performed By: #### L TH1249, [id number] ####Mammal Keeper: UNA ARCE ([id number])[facility] (SB[facility])[address] EOSINOPHILS (10*3/UL) IN BLOOD BY MANUAL COUNT 0.3 10*3/uL Normal 0.0-0.5 [facility] Comment on above: Performed By: #### L ME6208, [id number] ####Mammal Keeper: UNA ARCE ([id number])[facility] [place] (SB[facility])[address] [place] [address] [place] EOSINOPHILS/100 LEUKOCYTES IN BLOOD BY MANUAL COUNT 2 % Normal 0-6 [facility] Comment on above: Performed By: #### L NX8479, [id number] ####Mammal Keeper: UNA ARCE ([id number])[facility] [place] (SB[facility])[address] [place] [address] [place] HYPOCHROMIA (PRESENCE) IN BLOOD BY LIGHT MICROSCOPY Slight Abnormal (none) [facility] Comment on above: Performed By: #### L JI6018, [id number] ####Mammal Keeper: UNA ARCE ([id number])[facility] [place] ([facility])[address] LEUKOCYTE MORPHOLOGY FINDING IN BLOOD Normal Normal [facility] Comment on above: Performed By: #### L CO0898, [id number] ####Mammal Keeper: UNAANJEL ARCE ([id number])[facility] (SBHL[facility])[address] [place] [address] [place] LYMPHOCYTES (10*3/UL) IN BLOOD BY MANUAL COUNT 3.3 10*3/uL Normal 1.0-4.3 [facility] Comment on above: Performed By: #### L YF8354, [id number] ####Mammal Keeper: UNAANJEL ARCE ([phone])[facility] [place] ([facility])[address] [place] [address] [place] LYMPHOCYTES/100 LEUKOCYTES IN BLOOD BY MANUAL COUNT 21 % Normal 15-45 [facility] Comment on above: Performed By: #### L XQ2302, [id number] ####Mammal Keeper: UNAANJEL ARCE ([id number])[facility] [place] (SB[facility])[address] [place] [address] [place] MONOCYTES (10*3/UL) IN BLOOD BY MANUAL COUNT 1.4 10*3/uL High 0.0-0.9 [facility] Comment on above: Performed By: #### L TI7586, IQL1446 ####Mammal Keeper: UNA BERMUDEZPEDRO ([phone])[facility] [place] (SB[facility])[address] [place] [address] [place] MONOCYTES/100 LEUKOCYTES IN BLOOD BY MANUAL COUNT 9 % Normal 5-13 [facility] Comment on above: Performed By: #### L [id number], [id number] ####Mammal Keeper: UNA BERMUDEZPEDRO ([phone])[facility] [place] (SB[facility])[address] [place] [address] [place] OVALOCYTES PRESENCE IN BLOOD BY LIGHT MICROSCOPY Slight Abnormal (none) [facility] Comment on above: Performed By: #### L [id number], [id number] ####Mammal Keeper: UNA STAUFFERMELANIE ([id number])[facility] [place] ([facility])[address] [place] [address] [place] PLATELET MORPHOLOGY IN BLOOD Normal Normal [facility] Comment on above: Performed By: #### L SW1306, [id number] ####Mammal Keeper: UNAANJEL ARCE ([phone])[facility] (SBHLAB)[address] POLYCHROMASIA IN BLOOD BY LIGHT MICROSCOPY Slight Abnormal (none) [facility] Comment on above: Performed By: #### L QG6628, [id number] ####Mammal Keeper: UNA BERMUDEZPEDRO ([id number])[facility] (SBHLAB)[address] SEGEMENTED NEUTROPHILS/100 LEUKOCYTES BY MANUAL COUNT 66 % Normal 38-82 [facility] Comment on above: Performed By: #### L [id number], [id number] ####Mammal Keeper: UNA YAZMIN ([id number])[facility] (SBHLAB)[address] [place] [address] SEGMENTED NEUTROPHILS (10*3/UL)IN BLOOD BY MANUAL COUNT 10.3 10*3/uL High 1.8-7.5 [facility] Comment on above: Performed By: #### L [id number], [id number] ####Mammal Keeper: UNA YAZMIN ([id number])[facility] (SBHLAB)[address] [place] [address] Manual differential performe d Ql (Bld)Ordered By: Myriam Choi on 07-19-2025 Basophils (Bld) [#/Vol] 0.3 10*3/uL High 0.0 - 0.2 10*3/uL [facility] Basophils/100 WBC (Bld) 2 % 0 - 2 % [facility] Cells Counted Total (Bld) [#] 100 {cells} [facility] Differential Method Manual differential performed [facility] Eosinophils (Bld) [#/Vol] 0.3 10*3/uL 0.0 - 0.5 10*3/uL [facility] Eosinophils/100 WBC (Bld) 2 % 0 - 6 % [facility] Hypochromia Ql (Bld) Slight Abnormal (none) [facility] Interpretation and review of laboratory results Abnormal [facility] Leukocyte morphology finding Nom (Bld) Normal [facility] Lymphocytes (Bld) [#/Vol] 3.3 10*3/uL 1.0 - 4.3 10*3/uL [facility] Lymphocytes/100 WBC (Bld) 21 % 15 - 45 % [facility] Monocytes (Bld) [#/Vol] 1.4 10*3/uL High 0.0 - 0.9 10*3/uL [facility] Monocytes/100 WBC (Bld) 9 % 5 - 13 % S [facility] Neutrophils (Bld) [#/Vol] 10.3 10*3/uL High 1.8 - 7.5 10*3/uL [facility] Ovalocytes LM Ql (Bld) Slight Abnormal (none) [facility] Platelet morphology finding Nom (Bld) Normal [facility] Polychromasia LM Ql (Bld) Slight Abnormal (none) [facility] Segmented neutrophils/100 WBC (Bld) 66 % 38 - 82 % [facility] No Panel Informationon 07-19 Blood Expiration Date [id number] S [facility] Crossmatch interpretation COMP [facility] Dispense Status [facility] Blood Type 600 [facility] PRODUCT CODE [id number] [facility] ABO A [id number] Volume 300 mL [facility] Progress Noteon 07-19-2025 Progress Note Normal [facility] Progress Noteon 07-15-2025 Progress Note Normal [facility] 36on 07-14-2025 36 Faxed signed order t o [facility] fax#[phone], and scanned to Media. Normal [facility] [address] Hess. Normal [facility] 36 [facility] faxed order to discontinue Hydralazine, and Spironolactone. Placed on nurses desk to have Dr. Hess sign it. Normal [facility] 36on 07-07-2025 36 Darby called back t o verify the diuretic instructions; she had the Lasix written down, so I verified that it was actually torsemide. She verbalized understanding and was thankful for the call. Normal [facility] 36 Normal [facility] Folates,Serum (Folic Acid)on 07-07-2025 FOLATES,SERUM 8.25 ng/mL Normal 4.60-34.80 [facility] Comment on above: Order Comment: 542-1 N Performed By: #### L 506.0200, L100.0600, L503.0106, L503.6030 #### [facility] [address] [place], [address] HH, Hemoglobin AND Hematocri ton 07-07-2025 Hematocrit (Bld) [Volume fraction] 23.3 % Low 40-54 [facility] Comment on above: Order Comment: 542-1 Performed By: #### L 506.0200, L100.0600, L503.0106, L503.6030 #### [facility] [address] [place], [address] Hemoglobin (Bld) [Mass/Vol] 7.3 g/dL Low 13.0-16.5 [facility] Comment on above: Order Comment: 54-1 Performed By: #### L 506.0200, L100.0600, L503.0106, L503.6030 #### [facility] [address] [place], [address] Iron+Iron Binding Capacityon 07-07-2025 Iron [Mass/Vol] 27 ug/dL Low 65-175 [facility] Comment on above: Order Comment: 542-1 Performed By: #### L 506.0200, L100.0600, L503.0106, L503.6030 #### [facility] [address] [place], [address] IRON SATURATION 9.6 Normal 9-55 [facility] Comment on above: Order Comment: 542-1 Performed By: #### L 506.0200, L100.0600, L503.0106, L503.6030 #### [facility] [address] [place], [address] TIBC 278 ug/dL Normal 250-450 [facility] Comment on above: Order Comment: 542-1 Performed By: #### L 506.0200, L100.0600, L503.0106, L503.6030 #### [facility] [address] [place], [address] UIBC 251 ug/dL Normal 228-428 [facility] Comment on above: Order Comment: 542-1 Performed By: #### L 506.0200, L100.0600, L503.0106, L503.6030 #### [facility] [address] [place], [address] Vitamin B12on 07-07-2025 Cobalamin (Vitamin B12) [Mass/Vol] 334 pg/mL Normal 180-914 [facility] Comment on above: Order Comment: 542-1 Performed By: #### L 506.0200, L100.0600, L503.0106, L503.6030 #### [facility] [address] [place], [address] 36on 07-06-2025 36 Cr 1.9, K+ 3.7, hemoglobin 7.1 on 07/05/25. BP's mostly 100-110's/50/60's; one SBP outlier of 94, one outlier of 121. HR's 60-70's. Note from nursing: Normal [facility] 36 [facility] faxed 07/05/25 BMP, and CBC, and vitals. Records to be scanned to chart. Normal [facility] 36 Normal [facility] Basic Metabolic Profile (BMP )on 07-05-2025 BUN/CRE 20.8 RATIO High 06-28 [facility] Comment on above: Order Comment: 542-1 N Performed By: #### L 506.0200, L100.0600, L503.0106, L503.6030 #### [facility] [address] [place], [address] Calcium [Mass/Vol] 8.5 mg/dL Normal 7.6-11.0 [facility] Comment on above: Order Comment: 542-1 N Performed By: #### L 506.0200, L100.0600, L503.0106, L503.6030 #### [facility] [address] [place], [address] Chloride [Moles/Vol] 101 mmol/L Normal 98-108 [facility] Comment on above: Order Comment: 542-1 N Performed By: #### L 506.0200, L100.0600, L503.0106, L503.6030 #### [facility] [address] [place], [address] CO2 [Moles/Vol] 28.6 mmol/L Normal 21.0-32.0 [facility] Comment on above: Order Comment: 542-1 N Performed By: #### L 506.0200, L100.0600, L503.0106, L503.6030 #### [facility] [address] [place], [address] Creatinine [Mass/Vol] 1.90 mg/dL High 0.70-1.20 [facility] Comment on above: Order Comment: 542-1 N Performed By: #### L 506.0200, L100.0600, L503.0106, L503.6030 #### [facility] [address] [place], [address] GAP 10 Normal 5-15 [facility] Comment on above: Order Comment: 542-1 N Performed By: #### L 506.0200, L100.0600, L503.0106, L503.6030 #### [facility] [address] [place], [address] GFR/1.73 sq M.predicted among non-blacks MDRD (S/P/Bld) [Vol rate/Area] 33 mL/min/{1.73_m2} Low >60 [facility] Comment on above: Order Comment: 542-1 N Result Comment: mL/m in/1.73m2 CKD-EPI Creatinine Equation (2020) Performed By: #### L 506.0200, L100.0600, L503.0106, L503.6030 #### [facility] [address] [place], [address] Glucose [Mass/Vol] 92 mg/dL Normal 70-99 [facility] Comment on above: Order Comment: 542-1 N Performed By: #### L 506.0200, L100.0600, L503.0106, L503.6030 #### [facility] [address] [place], [address] Potassium [Moles/Vol] 3.7 mmol/L Normal 3.3-5.1 [facility] Comment on above: Order Comment: 542-1 N Performed By: #### L 506.0200, L100.0600, L503.0106, L503.6030 #### [facility] [address] [place], [address] Sodium [Moles/Vol] 140 mmol/L Normal 133-145 [facility] Comment on above: Order Comment: 542-1 N Performed By: #### L 506.0200, L100.0600, L503.0106, L503.6030 #### [facility] [address] [place], [address] Urea nitrogen [Mass/Vol] 40 mg/dL High 4-19 [facility] Comment on above: Order Comment: 542-1 N Performed By: #### L 506.0200, L100.0600, L503.0106, L503.6030 #### [facility] [address] [place], [address] CBC-Complete Blood Cnt No Di ffon 07-05-2025 Erythrocyte distribution width (RBC) [Ratio] 14.8 % High 11.6-14.6 [facility] Comment on above: Order Comment: 542-1 N Performed By: #### L 506.0200, L100.0600, L503.0106, L503.6030 #### [facility] [address] [place], [address] Hematocrit (Bld) [Volume fraction] 23.2 % Low 40-54 [facility] Comment on above: Order Comment: 542-1 N Performed By: #### L 506.0200, L100.0600, L503.0106, L503.6030 #### [facility] [address] [place], [address] Hemoglobin (Bld) [Mass/Vol] 7.1 g/dL Low 13.0-16.5 [facility] Comment on above: Order Comment: 542-1 N Performed By: #### L 506.0200, L100.0600, L503.0106, L503.6030 #### [facility] [address] [place], [address] MCH (RBC) [Entitic mass] 28.9 pg Normal 27.0-32.0 [facility] Comment on above: Order Comment: 542-1 N Performed By: #### L 506.0200, L100.0600, L503.0106, L503.6030 #### [facility] [address] [place], [address] MCHC (RBC) [Mass/Vol] 30.6 g/dL Low 32-36 [facility] Comment on above: Order Comment: 542-1 N Performed By: #### L 506.0200, L100.0600, L503.0106, L503.6030 #### [facility] [address] [place], [address] MCV (RBC) [Entitic vol] 94.3 fL High 80-94 [facility] Comment on above: Order Comment: 542-1 N Performed By: #### L 506.0200, L100.0600, L503.0106, L503.6030 #### [facility] [address] [place], [address] Platelet mean volume (Bld) [Entitic vol] 8.8 fL Normal 6.2-12.0 [facility] Comment on above: Order Comment: 542-1 N Performed By: #### L 506.0200, L100.0600, L503.0106, L503.6030 #### [facility] [address] [place], [address] Platelets (Bld) [#/Vol] 507 10*3/uL High 150-450 [facility] Comment on above: Order Comment: 542-1 N Performed By: #### L 506.0200, L100.0600, L503.0106, L503.6030 #### [facility] [address] [place], [address] RBC (Bld) [#/Vol] 2.46 10*6/uL Low 4.6-6.2 [facility] Comment on above: Order Comment: 542-1 N Performed By: #### L 506.0200, L100.0600, L503.0106, L503.6030 #### [facility] [address] [place], [address] RDW SD 49.7 fl High 35.1-43.9 [facility] Comment on above: Order Comment: 542-1 N Performed By: #### L 506.0200, L100.0600, L503.0106, L503.6030 #### [facility] [address] [place], [address] WBC (Bld) [#/Vol] 12.0 10*3/uL High 4.4-11.0 [facility] Comment on above: Order Comment: 542-1 N Performed By: #### L 506.0200, L100.0600, L503.0106, L503.6030 #### [facility] [address] [place], [address] Progress Noteon 06-30-2025 Progress Note Normal [facility] Basic Metabolic Profile (BMP )on 06-28-2025 BUN/CRE 23.4 RATIO High - [facility] Comment on above: Order Comment: 212.1 Performed By: #### L 500.2500 #### [facility] [address] [place], [address] Calcium [Mass/Vol] 8.4 mg/dL Normal 7.6-11.0 [facility] Comment on above: Order Comment: 212.1 Performed By: #### L 500.2500 #### [facility] [address] [place], [address] Chloride [Moles/Vol] 100 mmol/L Normal 98-108 [facility] Comment on above: Order Comment: 212.1 Performed By: #### L 500.2500 #### [facility] [address] [place], [address] CO2 [Moles/Vol] 27.4 mmol/L Normal 21.0-32.0 [facility] Comment on above: Order Comment: 212.1 Performed By: #### L 500.2500 #### [facility] [address] [place], [address] Creatinine [Mass/Vol] 1.72 mg/dL High 0.70-1.20 [facility] Comment on above: Order Comment: 212.1 Performed By: #### L 500.2500 #### [facility] [address] [place], [address] GAP 10 Normal 5-15 [facility] Comment on above: Order Comment: 212.1 Performed By: #### L 500.2500 #### [facility] [address] [place], [address] GFR/1.73 sq M.predicted among non-blacks MDRD (S/P/Bld) [Vol rate/Area] 38 mL/min/{1.73_m2} Low >60 [facility] Comment on above: Order Comment: 212.1 Result Comment: mL/m in/1.73m2 CKD-EPI Creatinine Equation (2020) Performed By: #### L 500.2500 #### [facility] [address] [place], [address] Glucose [Mass/Vol] 88 mg/dL Normal 70-99 [facility] Comment on above: Order Comment: 212.1 Performed By: #### L 500.2500 #### [facility] [address] [place], [address] Potassium [Moles/Vol] 3.9 mmol/L Normal 3.3-5.1 [facility] Comment on above: Order Comment: 212.1 Performed By: #### L 500.2500 #### [facility] [address] [place], [address] Sodium [Moles/Vol] 137 mmol/L Normal 133-145 [facility] Comment on above: Order Comment: 212.1 Performed By: #### L 500.2500 #### [facility] [address] [place], [address] Urea nitrogen [Mass/Vol] 40 mg/dL High 4-19 [facility] Comment on above: Order Comment: 212.1 Performed By: #### L 500.2500 #### [facility] [address] [place], [address] 36on 06-24-2025 36 Normal [facility] 36 Normal [facility] 36 06/24/25 BMP, blood pressure, pulse summary, and medication notes faxed from [facility]. Records scanned to Media. Normal [facility] Basic Metabolic Profile (BMP )on 06-24-2025 BUN/CRE 25.8 RATIO High 10-20 [facility] Comment on above: Order Comment: 212.1 Performed By: #### L 500.2500 #### [facility] [address] [place], [address] Calcium [Mass/Vol] 8.4 mg/dL Normal 7.6-11.0 [facility] Comment on above: Order Comment: 212.1 Performed By: #### L 500.2500 #### [facility] [address] [place], [address] Chloride [Moles/Vol] 97 mmol/L Low 98-108 [facility] Comment on above: Order Comment: 212.1 Performed By: #### L 500.2500 #### [facility] [address] [place], [address] CO2 [Moles/Vol] 26.9 mmol/L Normal 21.0-32.0 [facility] Comment on above: Order Comment: 212.1 Performed By: #### L 500.2500 #### [facility] [address] [place], [address] Creatinine [Mass/Vol] 1.80 mg/dL High 0.70-1.20 [facility] Comment on above: Order Comment: 212.1 Performed By: #### L 500.2500 #### [facility] [address] [place], [address] GAP 12 Normal 5-15 [facility] Comment on above: Order Comment: 212.1 Performed By: #### L 500.2500 #### [facility] [address] [place], [address] GFR/1.73 sq M.predicted among non-blacks MDRD (S/P/Bld) [Vol rate/Area] 36 mL/min/{1.73_m2} Low >60 [facility] Comment on above: Order Comment: 212.1 Result Comment: mL/m in/1.73m2 CKD-EPI Creatinine Equation (2020) Performed By: #### L 500.2500 #### [facility] [address] [place], [address] Glucose [Mass/Vol] 87 mg/dL Normal 70-99 [facility] Comment on above: Order Comment: 212.1 Performed By: #### L 500.2500 #### [facility] [address] [place], [address] Potassium [Moles/Vol] 3.8 mmol/L Normal 3.3-5.1 [facility] Comment on above: Order Comment: 212.1 Performed By: #### L 500.2500 #### [facility] [address] [place], [address] Sodium [Moles/Vol] 137 mmol/L Normal 133-145 [facility] Comment on above: Order Comment: 212.1 Performed By: #### L 500.2500 #### [facility] [address] [place], [address] Urea nitrogen [Mass/Vol] 47 mg/dL High 4-19 [facility] Comment on above: Order Comment: 212.1 Performed By: #### L 500.2500 #### [facility] [address] [place], [address] Progress Noteon 06-24-2025 Progress Note Attempted to meet with pt. He no longer resides here. Facility uncertain where he has moved to. Message left on primary contacts number Bereket to return call to the palliative group at [phone] BASIC METABOLIC PANELon 06-09 Anion gap [Moles/Vol] 15 mmol/L High 3-13 [facility] Comment on above: Performed By: #### L AB15 ####Mammal Keeper: UNA ARCE ([phone])[facility] (SBHL[facility])[address] Calcium [Mass/Vol] 8.4 mg/dL Low 8.8-10.0 [facility] Comment on above: Performed By: #### L AB15 ####Mammal Keeper: UNA ARCE ([phone])[facility] [place] ([facility])[address] Chloride [Moles/Vol] 97 mmol/L Low 98-107 [facility] Comment on above: Performed By: #### L AB15 ####Mammal Keeper: UNA MOHRCER ([phone])[facility] [place] ([facility])[address] CO2 [Moles/Vol] 25 mmol/L Normal 23-31 [facility] Comment on above: Performed By: #### L AB15 ####Mammal Keeper: UNA ARCE ([phone])[facility] [place] ([facility])[address] Creatinine [Mass/Vol] 1.97 mg/dL High 0.72-1.25 [facility] Comment on above: Performed By: #### L AB15 ####Mammal Keeper: UNA STAUFFERMELANIE ([phone])[facility] [place] ([facility])[address] GLOMERULAR FILTRATION RATE ML/MIN/1.73 SQ M.PREDICTED 31.9 mL/min/1.73m*2 Low >60.0 [facility] Comment on above: Result Comment: Calc ulation based on the Chronic Kidney Disease Epidemiology Collaboration (CKD-EPI) equation refit without adjustment for race Performed By: #### L AB15 ####Mammal Keeper: UNA ARCE ([phone])[facility] [place] ([facility])[address] Glucose [Mass/Vol] 108 mg/dL Normal 82-115 [facility] Comment on above: Performed By: #### L AB15 ####Mammal Keeper: UNA ARCE ([phone])[facility] (SBHLAB)[address] Potassium [Moles/Vol] 4.1 mmol/L Normal 3.5-5.1 [facility] Comment on above: Result Comment: [facility] potassium values may be up to 0.5 mmol/L lower than serum values. Performed By: #### L AB15 ####Mammal Keeper: UNA ARCE ([phone])[facility] (SB[facility])[address] Sodium [Moles/Vol] 137 mmol/L Normal 136-145 [facility] Comment on above: Performed By: #### L AB15 ####Mammal Keeper: UNA ARCE ([phone])[facility] Urea nitrogen [Mass/Vol] 51 mg/dL High 9-23 [facility] Comment on above: Performed By: #### L AB15 ####Mammal Keeper: UNA ARCE ([phone])[facility] BLOOD TYPE AND SCREEN GELon 06-21-2025 ABO GROUPING A Normal [facility] Comment on above: Performed By: #### L [id number] ####Mammal Keeper: UNA ARCE ([phone])[facility] ([facility])[address] [place] [address] RH TYPE IN BLOOD Negative Normal [facility] Comment on above: Performed By: #### L [id number] ####Mammal Keeper: UNA ARCE ([phone])[facility] ([facility])[address] [place] [address] Basic Metabolic Profile (BMP )on 06-21-2025 BUN/CRE 25.4 RATIO High 10-20 [facility] Comment on above: Order Comment: 212.1 Performed By: #### L 100.0500, L500.2500 #### [facility] [address] [place], [address] Calcium [Mass/Vol] 8.4 mg/dL Normal 7.6-11.0 [facility] Comment on above: Order Comment: 212.1 Performed By: #### L 100.0500, L500.2500 #### [facility] [address] [place], [address] Chloride [Moles/Vol] 97 mmol/L Low 98-108 [facility] Comment on above: Order Comment: 212.1 Performed By: #### L 100.0500, L500.2500 #### [facility] [address] [place], [address] CO2 [Moles/Vol] 29.6 mmol/L Normal 21.0-32.0 [facility] Comment on above: Order Comment: 212.1 Performed By: #### L 100.0500, L500.2500 #### [facility] [address] [place], [address] Creatinine [Mass/Vol] 1.86 mg/dL High 0.70-1.20 [facility] Comment on above: Order Comment: 212.1 Performed By: #### L 100.0500, L500.2500 #### [facility] [address] [place], [address] GAP 10 Normal 5-15 [facility] Comment on above: Order Comment: 212.1 Performed By: #### L 100.0500, L500.2500 #### [facility] [address] [place], [address] GFR/1.73 sq M.predicted among non-blacks MDRD (S/P/Bld) [Vol rate/Area] 34 mL/min/{1.73_m2} Low >60 [facility] Comment on above: Order Comment: 212.1 Result Comment: mL/m in/1.73m2 CKD-EPI Creatinine Equation (2020) Performed By: #### L 100.0500, L500.2500 #### [facility] [address] [place], [address] Glucose [Mass/Vol] 93 mg/dL Normal 70-99 [facility] Comment on above: Order Comment: 212.1 Performed By: #### L 100.0500, L500.2500 #### [facility] [address] [place], [address] Potassium [Moles/Vol] 3.8 mmol/L Normal 3.3-5.1 [facility] Comment on above: Order Comment: 212.1 Performed By: #### L 100.0500, L500.2500 #### [facility] [address] [place], [address] Sodium [Moles/Vol] 136 mmol/L Normal 133-145 [facility] Comment on above: Order Comment: 212.1 Performed By: #### L 100.0500, L500.2500 #### [facility] [address] [place], [address] Urea nitrogen [Mass/Vol] 47 mg/dL High 4-19 [facility] Comment on above: Order Comment: 212.1 Performed By: #### L 100.0500, L500.2500 #### [facility] [address] [place], [address] Basic metabolic 1998 panelon 06-21-2025 Anion gap [Moles/Vol] 15 mmol/L High 3 - 13 mmol/L [facility] [place] Calcium [Mass/Vol] 8.4 mg/dL Low 8.8 - 10. 0 mg/dL [facility] [place] Chloride [Moles/Vol] 97 mmol/L Low 98 - 10 7 mmol/L [facility] [place] CO2 [Moles/Vol] 25 mmol/L 23 - 31 mmol/L [facility] [place] Creatinine [Mass/Vol] 1.97 mg/dL High 0.72 - 1.25 mg/dL [facility] GFR/1.73 sq M.predicted (S/P/Bld) [Vol rate/Area] 31.9 mL/min Low - PINF [facility] Comment on above: Calculation based on the Chronic Kidney Disease Epidemiology Collaboration (CKD-EPI) equation refit without adjustment for race Glucose [Mass/Vol] 108 mg/dL 82 - 115 mg/dL [facility] Interpretation and review of laboratory results Abnormal [facility] Potassium [Moles/Vol] 4.1 mmol/L 3.5 - 5.1 mmol/L [facility] Comment on above: Plasma potassium traci ues may be up to 0.5 mmol/L lower than serum values. Sodium [Moles/Vol] 137 mmol/L 136 - 145 mmol/L [facility] Urea nitrogen [Mass/Vol] 51 mg/dL High 9 - 23 mg/d L [facility] Blood type and Crossmatch pa valente (Bld)on 06-21-2025 ABO group Nom (Bld) A [facility] Blood group antibody screen GEL Ql Negative [facility] D Ag Ql (RBC) Negative [facility] CBC W Auto Differential pane l (Bld)Ordered By: Sallie Powell on 06-21-2025 Erythrocyte distribution width (RBC) [Ratio] 16.7 % High 11.5 - 15.0 % [facility] Hematocrit (Bld) [Volume fraction] 23.3 % Low 40.0 - 52.0 % [facility] Hemoglobin (Bld) [Mass/Vol] 7.4 g/dL Low 13.0 - 18.0 g/dL [facility] Interpretation and review of laboratory results Abnormal [facility] MCH (RBC) [Entitic mass] 29 pg 26. 0 - 34.0 pg [facility] MCHC (RBC) [Mass/Vol] 31.8 % 30.5 - 36.0 % [facility] MCV (RBC) [Entitic vol] 91.4 fL 77.0 - 99.0 fL [facility] Platelet mean volume (Bld) [Entitic vol] 8.5 fL Low 9.0 - 12.7 fL [facility] Platelets (Bld) [#/Vol] 513 10*3/uL High 140 - 440 10*3/uL [facility] RBC (Bld) [#/Vol] 2.55 10*6/uL Low 4.40 - 5.9 0 10*6/uL [facility] WBC (Bld) [#/Vol] 16.8 10*3/uL High 3.6 - 10.7 10*3/uL [facility] CBC WITH AUTO DIFFERENTIALon 06-21-2025 Erythrocyte distribution width (RBC) [Ratio] 16.7 % High 11.5-15.0 [facility] Comment on above: Performed By: #### L [id number], [id number] ####Mammal Keeper: UNA ARCE ([id number])[facility] [place] ([facility])[address] Hematocrit (Bld) [Volume fraction] 23.3 % Low 40.0-52.0 [facility] Comment on above: Performed By: #### L [id number], [id number] ####Mammal Keeper: UNA ARCE ([phone])[facility] ([facility])[address] Hemoglobin (Bld) [Mass/Vol] 7.4 g/dL Low 13.0-18.0 [facility] Comment on above: Performed By: #### L [id number], [id number] ####Mammal Keeper: UNA ARCE ([id number])[facility] [place] ([facility])[address] MCH (RBC) [Entitic mass] 29.0 pg Normal 26.0-34.0 [facility] Comment on above: Performed By: #### L [id number], [id number] ####Mammal Keeper: UNA ARCE ([id number])[facility] ([facility])[address] MCHC 31.8 % Normal 30.5-36.0 [facility] Comment on above: Performed By: #### L [id number], [id number] ####Mammal Keeper: UNA ARCE ([id number])[facility] MCV (RBC) [Entitic vol] 91.4 fL Normal 77.0-99.0 [facility] Comment on above: Performed By: #### L [id number], [id number] ####Mammal Keeper: UNA ARCE ([id number])[facility] ([facility])[address] Platelet mean volume (Bld) [Entitic vol] 8.5 fL Low 9.0-12.7 [facility] Comment on above: Performed By: #### L [id number], [id number] ####Mammal Keeper: UNA ARCE ([id number])[facility] ([facility])[address] Platelets (Bld) [#/Vol] 513 10*3/uL High 140-440 [facility] Comment on above: Performed By: #### L [id number], [id number] ####Mammal Keeper: UNA ARCE ([id number])[facility]ITAL[facility] (SB[facility])[address] RBC (Bld) [#/Vol] 2.55 10*6/uL Low 4.40-5.90 [facility] Comment on above: Performed By: #### L [id number], [id number] ####Mammal Keeper: UNA ARCE ([id number])[facility] ([facility])[address] WBC (Bld) [#/Vol] 16.8 10*3/uL High 3.6-10.7 [facility] Comment on above: Performed By: #### L [id number], [id number] ####Mammal Keeper: UNA ARCE ([id number])[facility] ([facility])[address] CBC-Complete Blood Cnt No Di ffon 06-21-2025 Erythrocyte distribution width (RBC) [Ratio] 16.8 % High 11.6-14.6 [facility] Comment on above: Order Comment: 212.1 Performed By: #### L 100.0500, L500.2500 #### [facility] [address] [place], [address] Hematocrit (Bld) [Volume fraction] 21.5 % Low 40-54 [facility] Comment on above: Order Comment: 212.1 Performed By: #### L 100.0500, L500.2500 #### [facility] [address] [place], [address] Hemoglobin (Bld) [Mass/Vol] 6.9 g/dL Low 13.0-16.5 [facility] Comment on above: Order Comment: 212.1 Performed By: #### L 100.0500, L500.2500 #### [facility] [address] [place], [address] MCH (RBC) [Entitic mass] 28.8 pg Normal 27.0-32.0 [facility] Comment on above: Order Comment: 212.1 Performed By: #### L 100.0500, L500.2500 #### [facility] [address] [place], [address] MCHC (RBC) [Mass/Vol] 32.1 g/dL Normal 32-36 [facility] Comment on above: Order Comment: 212.1 Performed By: #### L 100.0500, L500.2500 #### [facility] [address] [place], [address] MCV (RBC) [Entitic vol] 89.6 fL Normal 80-94 [facility] Comment on above: Order Comment: 212.1 Performed By: #### L 100.0500, L500.2500 #### [facility] [address] [place], [address] Platelet mean volume (Bld) [Entitic vol] 8.7 fL Normal 6.2-12.0 [facility] Comment on above: Order Comment: 212.1 Performed By: #### L 100.0500, L500.2500 #### [facility] [address] [place], [address] Platelets (Bld) [#/Vol] 457 10*3/uL High 150-450 [facility] Comment on above: Order Comment: 212.1 Performed By: #### L 100.0500, L500.2500 #### [facility] [address] [place], [address] RBC (Bld) [#/Vol] 2.40 10*6/uL Low 4.6-6.2 [facility] Comment on above: Order Comment: 212.1 Performed By: #### L 100.0500, L500.2500 #### [facility] [address] [place], [address] RDW SD 55.8 fl High 35.1-43.9 [facility] Comment on above: Order Comment: 212.1 Performed By: #### L 100.0500, L500.2500 #### [facility] [address] [place], [address] WBC (Bld) [#/Vol] 14.3 10*3/uL High 4.4-11.0 [facility] Comment on above: Order Comment: 212.1 Performed By: #### L 100.0500, L500.2500 #### [facility] [address] [place], [address] ECG 12-LEADon 06-21-2025 ECG 12-LEAD IMPRESSION: Sinus rhythm Atrial premature complexes Left anterior fascicular block Similar to prior on 04/13/25 Electronically Signed On 06-21-2025 23:12:12 EDT by Sagar Gilliam ED Nursing Noteon 06-21-2025 ED Nursing Note This RN at bedside for first 15 minutes of blood transfusion. Pt tolerating transfusion. VS updated in system. ED Nursing Note Patient arrives via EMS from [facility] following bloodwork that showed low hemoglobin. No overt signs of bleeding on arrival. Patient A&O4. Patient does endorse previous blood transfusions. Normal [facility] ED Provider Noteon ED Provider Note Normal [facility] Laboratory - Hematology and Cell countson 06-21-2025 Eosinophils (Bld) [#/Vol] 0.3 10*3/uL 0.0 - 0.5 10*3/uL [facility] Eosinophils/100 WBC (Bld) 2 % 0 - 6 % [facility] Giant platelets LM Ql (Bld) Rare Abnormal (none) [facility] Hypochromia Ql (Bld) Slight Abnormal (none) [facility] Lymphocytes (Bld) [#/Vol] 4 10*3/uL 1.0 - 4.3 10*3/uL [facility] Lymphocytes/100 WBC (Bld) 24 % 15 - 45 % [facility] Monocytes (Bld) [#/Vol] 1.2 10*3/uL High 0.0 - 0.9 10*3/uL [facility] Monocytes/100 WBC (Bld) 7 % 5 - 13 % [facility] Neutrophils (Bld) [#/Vol] 11.3 10*3/uL High 1.8 - 7.5 10*3/uL [facility] Ovalocytes LM Ql (Bld) Rare Abnormal (none) [facility] RBC morphology finding Nom (Bld) abnormal [facility] Segmented neutrophils/100 WBC (Bld) 67 % 38 - 82 % [facility] MANUAL DIFFERENTIAL (CELLAVI BANDAR)on 06-21-2025 BAND NEUTROPHILS TOTAL PER COUNTED LEUKOCYTES BY MANUAL COUNT Normal [facility] Comment on above: Performed By: #### L [id number], [id number] ####Mammal Keeper: UNA ARCE ([phone])[facility] ([facility])[address] [place] [address] BASOPHILS TOTAL PER COUNTED LEUKOCYTES BY MANUAL COUNT Normal [facility] Comment on above: Performed By: #### L [id number], [id number] ####Mammal Keeper: UNA ARCE ([phone])[facility] [facility] ([facility])[address] [place] [address] [place] BLASTS TOTAL PER COUNTED LEUKOCYTES BY MANUAL COUNT Normal [facility] Comment on above: Performed By: #### L [id number], [id number] ####Mammal Keeper: UNA ARCE ([phone])[facility] (SBHLAB)[address] [place] [address] [place] EOSINOPHILS (10*3/UL) IN BLOOD-CELLAVISION 0.3 10*3/uL Normal 0.0-0.5 [facility] Comment on above: Performed By: #### L [id number], [id number] ####Mammal Keeper: UNA ARCE ([id number])[facility] (SBHLAB)[address] [place] [address] [place] EOSINOPHILS TOTAL PER COUNTED LEUKOCYTES BY MANUAL COUNT 2 High 0-1 [facility] Comment on above: Performed By: #### L [id number], [id number] ####Mammal Keeper: UNA ARCE ([phone])[facility] (SBHLAB)[address] [place] [address] [place] EOSINOPHILS/100 LEUKOCYTES IN BLOOD-CELLAVISION 2 % Normal 0-6 [facility] Comment on above: Performed By: #### L [id number], [id number] ####Mammal Keeper: UNA ARCE ([id number])[facility] [place] [address] [place] HYPOCHROMIA (PRESENCE) IN BLOOD BY LIGHT MICROSCOPY Slight Abnormal (none) [facility] Comment on above: Performed By: #### L [id number], [id number] ####Mammal Keeper: UNA ARCE ([phone])[facility] [place] [address] [place] LYMPHOCYTES (10*3/UL) IN BLOOD-CELLAVISION 4.0 10*3/uL Normal 1.0-4.3 [facility] Comment on above: Performed By: #### L [id number], [id number] ####Mammal Keeper: UNA [id number])[facility] (SBHLAB)[address] [place] [address] [place] LYMPHOCYTES TOTAL PER COUNTED LEUKOCYTES BY MANUAL COUNT 24 Normal [facility] Comment on above: Performed By: #### L [id number], [id number] ####Mammal Keeper: UNA ARCE ([id number])[facility] (SBHLAB)[address] [place] [address] [place] LYMPHOCYTES/100 LEUKOCYTES IN BLOOD-CELLAVISION 24 % Normal 15-45 [facility] Comment on above: Performed By: #### L [id number], [id number] ####Mammal Keeper: UNA ARCE ([phone])[facility] [place] (SB[facility])[address] [place] [address] [place] METAMYELOCYTES TOTAL PER COUNTED LEUKOCYTES BY MANUAL COUNT Normal [facility] Comment on above: Performed By: #### L [id number], [id number] ####Mammal Keeper: UNA ARCE ([id number])[facility] [place] ([facility])[address] [place] [address] [place] MONOCYTES (10*3/UL) IN BLOOD-CELLAVISION 1.2 10*3/uL High 0.0-0.9 [facility] Comment on above: Performed By: #### L [id number], [id number] ####Mammal Keeper: UNA ARCE ([id number])[facility] [place] ([facility])[address] [place] [address] [place] MONOCYTES TOTAL PER COUNTED LEUKOCYTES BY MANUAL COUNT 7 Normal [facility] Comment on above: Performed By: #### L [id number], [id number] ####Mammal Keeper: UNA ACRE ([phone])[facility] [place] ([facility])[address] [place] [address] [place] MONOCYTES/100 LEUKOCYTES IN BLOOD-LUCIANA 7 % Normal 5-13 [facility] Comment on above: Performed By: #### L [id number], [id number] ####Mammal Keeper: UNA ARCE ([phone])[facility] (SBHLAB)[address] [place] [address] [place] MYELOCYTES COUNTED BY MANUAL COUNT Normal [facility] Comment on above: Performed By: #### L [id number], [id number] ####Mammal Keeper: UNA STAUFFERMELANIE ([phone])[facility] (SBHLAB)[address] [place] [address] [place] NEUTROPHILS TOTAL PER COUNTED LEUKOCYTES BY MANUAL COUNT 67 Normal [facility] Comment on above: Performed By: #### L [id number], [id number] ####Mammal Keeper: UNA BERMUDEZPEDRO ([phone])[facility] [place] (SB[facility])[address] [place] [address] [place] OVALOCYTES PRESENCE IN BLOOD BY LIGHT MICROSCOPY Rare Abnormal (none) [facility] Comment on above: Performed By: #### L [id number], [id number] ####Mammal Keeper: UNA ARCE ([phone])[facility] [place] ([facility])[address] [place] [address] [place] PLATELETS GIANT PRESENCE IN BLOOD BY LIGHT MICROSCOPY Rare Abnormal (none) [facility] Comment on above: Performed By: #### L [id number], [id number] ####Mammal Keeper: UNA ARCE ([phone])[facility] [place] ([facility])[address] [place] [address] [place] PROMYELOCYTES TOTAL PER COUNTED LEUKOCYTES BY MANUAL COUNT Normal [facility] Comment on above: Performed By: #### L [id number], [id number] ####Mammal Keeper: UNA ARCE ([phone])[facility] [place] (SB[facility])[address] [place] [address] [place] RBC MORPHOLOGY IN BLOOD abnormal Normal [facility] Comment on above: Performed By: #### L [id number], [id number] ####Mammal Keeper: UNA ARCE ([phone])[facility] [place] ([facility])[address] [place] [address] [place] SEGMENTED NEUTROPHILS (10*3/UL) IN BLOOD-CELLAVISION 11.3 10*3/uL High 1.8-7.5 [facility] Comment on above: Performed By: #### L [id number], [id number] ####Mammal Keeper: UNA STAUFFERMELANIE ([phone])[facility] (SBHLAB)[address] SEGMENTED NEUTROPHILS/100 LEUKOCYTES-CE 67 % Normal 38-82 [facility] Comment on above: Performed By: #### L [id number], [id number] ####Mammal Keeper: UNA BERMUDEZPEDRO ([id number])[facility] [place] (SB[facility])[address] UNCLASSIFIED CELLS TOTAL PER COUNTED LEUKOCYTES BY MANUAL COUNT Comment on above: Performed By: #### L [id number], [id number] ####Mammal Keeper: UNA STAUFFERMELANIE ([phone])[facility] [place] (SB[facility]AB)[address] VARIANT LYMPHOCYTES TOTAL PER COUNTED LEUKOCYTES BY MANUAL COUNT Comment on above: Performed By: #### L [id number], [id number] ####Mammal Keeper: UNA BERMUDEZPEDRO ([id number])[facility] [place] (SBHLAB)[address] No Panel Informationon 06-21 P [place] 17 degrees [facility] DE Interval 189 ms [facility] QRS [place] -50 degrees [facility] QRSD Interval 116 [facility] Interval 434 ms [facility] QTC Interval 436 ms [facility] T Wave [place] 37 degrees [facility] Sinus rhythm Atrial premature complexes Left anterior fascicular block Similar to prior on 04/13/25 Electronically Signed On 06-21-2025 23:12:12 EDT by Sagar Posey, - 06/21/2025 IMPRESSION: Sinus rhythm Atrial premature complexes Left anterior fascicular block Similar to prior on 04/13/25 Electronically Signed On 06-21-2025 23:12:12 EDT by Sagar Gilliam [facility] Blood Expiration Date [id number] S [facility] Crossmatch interpretation COMP [facility] Dispense Status Transfused [facility] lt Product Blood Type 600 [facility] PRODUCT CODE [id number] [facility] Unit ABO A [facility] Unit Number [id number] [facility] RH Negative [facility] Unit Volume 300 mL [facility] Atypical Lymphocytes Manual [facility] Bands Manual [facility] Basophils Manual [facility] alth Blasts Manual [facility]alt [facility] Eosinophils Manual 2 High 0 - 1 [facility] Interpretation and review of laboratory results Abnormal [facility] Lymphocytes Manual 24 [facility] Metamyelocytes Manual [facility] Monocytes Manual 7 [facility] alth Myelocytes Manual [facility] ealt Neutrophils Manual 67 [facility] Promyelocytes Manual [facility] Unclassified Cells, Manual [facility] Vital signson 06-21-2025 Heart rate 63 /min bpm [facility] 36on 06-18-2025 36 Noted; thank you. Normal [facility] ealt System [facility] 36on 06-17-2025 36 Normal [facility] 36 Normal [facility] BASIC METABOLIC PANELon Anion gap [Moles/Vol] 13 mmol/L Normal 3-13 [facility] Comment on above: Performed By: #### L [id number] ####Mammal Keeper: ANAHY AVILA ([phone])[facility] JAN [place] (SWRLAB)[address] [place] [address] [place] Calcium [Mass/Vol] 9.2 mg/dL Normal 8.8-10.0 [facility] Comment on above: Performed By: #### L [id number] ####Mammal Keeper: ANAHY AVILA ([phone])[facility] [place] (SWRLAB)[address] [place] [address] [place] Chloride [Moles/Vol] 98 mmol/L Normal 98-107 [facility] Comment on above: Performed By: #### L [id number] ####Mammal Keeper: ANAHY AVILA ([phone])[facility] [place] (SWRLAB)[address] [place] [address] [place] CO2 [Moles/Vol] 29 mmol/L Normal 23-31 [facility] Comment on above: Performed By: #### L [id number] ####Mammal Keeper: ANAHY AVILA ([phone])[facility] [place] (SWRLAB)[address] [place] [address] [place] Creatinine [Mass/Vol] 2.05 mg/dL High 0.72-1.25 [facility] Comment on above: Performed By: #### L [id number] ####Mammal Keeper: ANAHY AVILA ([phone])[facility] [place] (SWRLAB)[address] [place] [address] [place] GLOMERULAR FILTRATION RATE ML/MIN/1.73 SQ M.PREDICTED 30.4 mL/min/1.73m*2 Low >60.0 [facility] Comment on above: Result Comment: Calc ulation based on the Chronic Kidney Disease Epidemiology Collaboration (CKD-EPI) equation refit without adjustment for race Performed By: #### L [id number] ####Mammal Keeper: ANAHY AVILA ([phone])[facility] [place] (SWRLAB)[address] [place] [address] [place] Glucose [Mass/Vol] 109 mg/dL Normal 82-115 [facility] Comment on above: Performed By: #### L [id number] ####Mammal Keeper: ANAHY AVILA ([phone])[facility] [place] (SWRLAB)[address] [place] [address] [place] Potassium [Moles/Vol] 4.3 mmol/L Normal 3.5-5.1 [facility] Comment on above: Result Comment: [facility] potassium values may be up to 0.5 mmol/L lower than serum values. Performed By: #### L [id number] ####Mammal Keeper: ANAHY AVILA ([phone])[facility] [place] (SWRLAB)[address] [place] [address] [place] Sodium [Moles/Vol] 140 mmol/L Normal 136-145 [facility] Comment on above: Performed By: #### L [id number] ####Mammal Keeper: ANAHY AVILA ([id number])[facility] SID (SWRLAB)[address] Urea nitrogen [Mass/Vol] 54 mg/dL High 9-23 [facility] Comment on above: Performed By: #### L [id number] ####Mammal Keeper: ANAHY AVILA ([id number])[facility] S[facility] (SWRLAB)[address] Basic metabolic 1998 panelon 06-17-2025 Anion gap [Moles/Vol] 13 mmol/L 3 - 13 mmol/L [facility] Calcium [Mass/Vol] 9.2 mg/dL 8.8 - 10. 0 mg/dL [facility] Chloride [Moles/Vol] 98 mmol/L 98 - 10 7 mmol/L [facility] CO2 [Moles/Vol] 29 mmol/L 23 - 31 mmol/L [facility] Creatinine [Mass/Vol] 2.05 mg/dL High 0.72 - 1.25 mg/dL [facility] GFR/1.73 sq M.predicted (S/P/Bld) [Vol rate/Area] 30.4 mL/min Low - PINF [facility] Comment on above: Calculation based on the Chronic Kidney Disease Epidemiology Collaboration (CKD-EPI) equation refit without adjustment for race Glucose [Mass/Vol] 109 mg/dL 82 - 115 mg/dL [facility] Interpretation and review of laboratory results Abnormal [facility] Potassium [Moles/Vol] 4.3 mmol/L 3.5 - 5.1 mmol/L [facility] Comment on above: Plasma potassium traci ues may be up to 0.5 mmol/L lower than serum values. Sodium [Moles/Vol] 140 mmol/L 136 - 145 mmol/L [facility] Urea nitrogen [Mass/Vol] 54 mg/dL High 9 - 23 mg/d L [facility] CBC W Auto Differential pane l (Bld)Ordered By: Jessica Maldonado on 06-17-2025 Basophils (Bld) [#/Vol] 0.1 10*3/uL 0.0 - 0.2 10*3/uL [facility] Basophils/100 WBC (Bld) 0.7 % 0.0 - 2.0 % [facility] Eosinophils (Bld) [#/Vol] 0.4 10*3/uL 0.0 - 0.5 10*3/uL [facility] Eosinophils/100 WBC (Bld) 2.2 % 0.0 - 6.0 % [facility] Erythrocyte distribution width (RBC) [Ratio] 17.2 % High 11.5 - 15.0 % [facility] Hematocrit (Bld) [Volume fraction] 25.7 % Low 40.0 - 52.0 % [facility] Hemoglobin (Bld) [Mass/Vol] 8.2 g/dL Low 13.0 - 18.0 g/dL [facility] Immature granulocytes (Bld) [#/Vol] 0.2 10*3/uL High NINF - 0.1 10*3/uL [facility] Immature granulocytes/100 WBC (Bld) 1 % 0.0 - 2.0 % [facility] Interpretation and review of laboratory results Abnormal [facility] Lymphocytes (Bld) [#/Vol] 2.9 10*3/uL 1.0 - 4.3 10*3/uL [facility] Lymphocytes/100 WBC (Bld) 17.2 % 15.0 - 45.0 % [facility] MCH (RBC) [Entitic mass] 29.1 pg 26. 0 - 34.0 pg [facility] MCHC (RBC) [Mass/Vol] 31.9 % 30.5 - 36.0 % [facility] MCV (RBC) [Entitic vol] 91.1 fL 77.0 - 99.0 fL [facility] Monocytes (Bld) [#/Vol] 1.5 10*3/uL High 0.0 - 0.9 10*3/uL [facility] Monocytes/100 WBC (Bld) 9.1 % 5.0 - 13.0 % [facility] Neutrophils (Bld) [#/Vol] 11.5 10*3/uL High 1.8 - 7.5 10*3/uL [facility] Neutrophils/100 WBC (Bld) 69.8 % 38.0 - 82.0 % [facility] Nucleated RBC/100 WBC (Bld) [Ratio] 0 % [facility] Platelet mean volume (Bld) [Entitic vol] 8.7 fL Low 9.0 - 12.7 fL [facility] Comment on above: MPV is a calculated measurement using platelet volume ratio Platelets (Bld) [#/Vol] 517 10*3/uL High 140 - 440 10*3/uL [facility] RBC (Bld) [#/Vol] 2.82 10*6/uL Low 4.40 - 5.9 0 10*6/uL [facility] WBC (Bld) [#/Vol] 16.5 10*3/uL High 3.6 - 10.7 10*3/uL [facility] Moderate Anisocytosi s Slight Hypochromia [facility] CBC WITH AUTO DIFFERENTIALon 06-17-2025 Basophils (Bld) [#/Vol] 0.1 10*3/uL Normal 0.0-0.2 [facility] Comment on above: Performed By: #### L [id number] ####Mammal Keeper: ANAHY AVILA ([phone])[facility] [place] [place] (SWRLAB)[address] [place] [address] [place] Basophils/100 WBC (Bld) 0.7 % Normal 0.0-2.0 [facility] Comment on above: Performed By: #### L [id number] ####Mammal Keeper: ANAHY AVILA ([phone])[facility] [place] [place] (SWRLAB)[address] [place] [address] [place] Eosinophils (Bld) [#/Vol] 0.4 10*3/uL Normal 0.0-0.5 [facility] Comment on above: Performed By: #### L [id number] ####Mammal Keeper: ANAHY AVILA ([phone])[facility] [place] [place] (SWRLAB)[address] [place] [address] [place] Eosinophils/100 WBC (Bld) 2.2 % Normal 0.0-6.0 [facility] Comment on above: Performed By: #### L [id number] ####Mammal Keeper: ANAHY AVILA ([phone])[facility] [place] [place] (SWRLAB)[address] [place] [address] Erythrocyte distribution width (RBC) [Ratio] 17.2 % High 11.5-15.0 [facility] Comment on above: Performed By: #### L [id number] ####Mammal Keeper: ANAHY AVILA ([phone])[facility] [place] (SWRLAB)[address] [place] [address] Hematocrit (Bld) [Volume fraction] 25.7 % Low 40.0-52.0 [facility] Comment on above: Performed By: #### L [id number] ####Mammal Keeper: ANAHY AVILA ([phone])[facility] [place] (SWRLAB)[address] [place] [address] Hemoglobin (Bld) [Mass/Vol] 8.2 g/dL Low 13.0-18.0 [facility] Comment on above: Performed By: #### L [id number] ####Mammal Keeper: ANAHY AVILA ([phone])[facility] [place] (SWRLAB)[address] [place] [address] IMMATURE GRANS % 1.0 % Normal 0.0-2.0 [facility] Comment on above: Performed By: #### L [id number] ####Mammal Keeper: ANAHY AVILA ([phone])[facility] [place] (SWRLAB)[address] [place] [address] IMMATURE GRANS ABSOLUTE 0.2 10*3/uL High <0.1 [facility] Comment on above: Result Comment: ORDE R COMMENTS:Moderate AnisocytosisSlight Hypochromia Performed By: #### L [id number] ####Mammal Keeper: ANAHY AVILA ([phone])[facility] [place] (SWRLAB)[address] [place] [address] Lymphocytes (Bld) [#/Vol] 2.9 10*3/uL Normal 1.0-4.3 [facility] Comment on above: Performed By: #### L [id number] ####Mammal Keeper: ANAHY AVILA ([phone])[facility] [place] (SWRLAB)[address] [place] [address] [place] Lymphocytes/100 WBC (Bld) 17.2 % Normal 15.0-45.0 [facility] Comment on above: Performed By: #### L [id number] ####Mammal Keeper: ANAHY AVILA ([id number])[facility] [place] (SWRLAB)[address] [place] [address] MCH (RBC) [Entitic mass] 29.1 pg Normal 26.0-34.0 [facility] Comment on above: Performed By: #### L [id number] ####Mammal Keeper: ANAHY AVILA ([phone])[facility] [place] (SWRLAB)[address] [place] [address] MCHC 31.9 % Normal 30.5-36.0 [facility] Comment on above: Performed By: #### L [id number] ####Mammal Keeper: ANAHY AVILA ([id number])[facility] [place] (SWRLAB)[address] [place] [address] [place] MCV (RBC) [Entitic vol] 91.1 fL Normal 77.0-99.0 [facility] Comment on above: Performed By: #### L [id number] ####Mammal Keeper: ANAYH AVILA ([phone])[facility] [place] (SWRLAB)[address] [place] [address] [place] Monocytes (Bld) [#/Vol] 1.5 10*3/uL High 0.0-0.9 [facility] Comment on above: Performed By: #### L [id number] ####Mammal Keeper: ANAHY AVILA ([phone])[facility] (SWRLAB)[address] [place] [address] [place] Monocytes/100 WBC (Bld) 9.1 % Normal 5.0-13.0 [facility] Comment on above: Performed By: #### L [id number] ####Mammal Keeper: ANAHY AVILA ([id number])[place] (SWRLAB)[address] [place] [address] NEUTROPHILS ABSOLUTE 11.5 10*3/uL High 1.8-7.5 [facility] Comment on above: Performed By: #### L [id number] ####Mammal Keeper: ANAHY AVILA ([phone])[facility] [place] (SWRLAB)[address] [place] [address] Neutrophils/100 WBC (Bld) 69.8 % Normal 38.0-82.0 [facility] Comment on above: Performed By: #### L [id number] ####Mammal Keeper: ANAHY AVILA ([id number])[facility] [place] (SWRLAB)[address] [place] [address] NRBC 0.0 /100 WBCs Normal 0.0-2.0 [facility] Comment on above: Performed By: #### L [id number] ####Mammal Keeper: ANAHY AVILA ([id number])[facility] [place] (SWRLAB)[address] [place] [address] Platelet mean volume (Bld) [Entitic vol] 8.7 fL Low 9.0-12.7 [facility] Comment on above: Result Comment: MPV is a calculated measurement using platelet volume ratio Performed By: #### L [id number] ####Mammal Keeper: ANAHY AVILA ([id number])[facility] [place] (SWRLAB)[address] [place] [address] Platelets (Bld) [#/Vol] 517 10*3/uL High 140-440 [facility] Comment on above: Performed By: #### L [id number] ####Mammal Keeper: ANAHY AVILA ([phone])[facility] [place] (SWRLAB)[address] [place] [address] RBC (Bld) [#/Vol] 2.82 10*6/uL Low 4.40-5.90 [facility] Comment on above: Performed By: #### L [id number] ####Mammal Keeper: ANAHY AVILA ([phone])[facility] [place] (SWRLAB)[address] WBC (Bld) [#/Vol] 16.5 10*3/uL High 3.6-10.7 [facility] Comment on above: Performed By: #### L [id number] ####Mammal Keeper: ANAHY AVILA ([phone])[facility] [place] (SWRLAB)[address] Progress Noteon 06-17-2025 Progress [facility] Progress Note Normal [facility] Progress Noteon 06-02-2025 Progress Note Normal [facility] Progress Noteon 05-19-2025 Progress Note Normal [facility] Progress Noteon 05-11-2025 Progress Note Normal [facility] Progress Noteon 05-06-2025 Progress Note Normal [facility] Progress Noteon 05-04-2025 Progress Note Normal [facility] Progress Noteon 05-03-2025 Progress Note Normal [facility] Progress Note CT abdomen with mura [...] daily Normal [facility] Progress Note Normal [facility] Progress Note Creatinine 1.46 on admission. [...] frailty Normal [facility] Progress Note Normal [facility] Progress Noteon 04-27-2025 Progress Note Normal [facility] Progress Noteon 04-20-2025 Progress Note Normal [facility] Progress Noteon 04-19-2025 Progress Note Normal [facility] [id number] 04-18-2025 [id number] Normal [facility] [id number] 04-17-2025 [id number] Normal [facility] [id number] Usp/SNF - [facility] - [facility] Member [address] [place] [address] [phone] [id number] Patient/Family Choice Normal [facility] [id number] Normal [facility] CBC W Auto Differential pane l (Bld)on 04-17-2025 Erythrocyte distribution width (RBC) [Ratio] 25.7 % High 11.5 - 15.0 % [facility] Hematocrit (Bld) [Volume fraction] 27.9 % Low 40.0 - 52.0 % [facility] Hemoglobin (Bld) [Mass/Vol] 7.9 g/dL Low 13.0 - 18.0 g/dL [facility] MCH (RBC) [Entitic mass] 23.8 pg Low 26. 0 - 34.0 pg [facility] MCHC (RBC) [Mass/Vol] 28.3 % Low 30.5 - 36.0 % [facility] MCV (RBC) [Entitic vol] 84 fL 77.0 - 99.0 fL [facility] Platelet mean volume (Bld) [Entitic vol] 9 fL 9.0 - 12.7 fL [facility] Platelets (Bld) [#/Vol] 419 10*3/uL 140 - 440 10*3/uL [facility] RBC (Bld) [#/Vol] 3.32 10*6/uL Low 4.40 - 5.9 0 10*6/uL [facility] WBC (Bld) [#/Vol] 12 10*3/uL High 3.6 - 10.7 10*3/uL [facility] CBC WITH AUTO DIFFERENTIALon 04-17-2025 Erythrocyte distribution width (RBC) [Ratio] 25.7 % High 11.5-15.0 [facility] Comment on above: Performed By: #### L [id number], [id number] ####Mammal Keeper: UNA ARCE ([id number])[facility] ([facility])[address] Hematocrit (Bld) [Volume fraction] 27.9 % Low 40.0-52.0 [facility] Comment on above: Performed By: #### L [id number], [id number] ####Mammal Keeper: UNA ARCE ([id number])[facility] ([facility])[address] [place] [address] Hemoglobin (Bld) [Mass/Vol] 7.9 g/dL Low 13.0-18.0 [facility] Comment on above: Performed By: #### Gilbert [id number], [id number] ####Mammal Keeper: UNA ARCE ([id number])[facility] ([facility])[address] [place] [address] MCH (RBC) [Entitic mass] 23.8 pg Low 26.0-34.0 [facility] Comment on above: Performed By: #### L [id number], [id number] ####Mammal Keeper: UNA ARCE ([id number])[facility] ([facility])[address] MCHC 28.3 % Low 30.5-36.0 [facility] Comment on above: Performed By: #### L [id number], [id number] ####Mammal Keeper: UNA ARCE ([id number])[facility] (SBHLAB)[address] MCV (RBC) [Entitic vol] 84.0 fL Normal 77.0-99.0 [facility] Comment on above: Performed By: #### L [id number], [id number] ####Mammal Keeper: UNA ARCE ([id number])[facility] ESCOTO (SBHLAB)[address] Platelet mean volume (Bld) [Entitic vol] 9.0 fL Normal 9.0-12.7 [facility] Comment on above: Performed By: #### L UV0600, [id number] ####Mammal Keeper: UNA ARCE ([id number])[facility]ITAL[facility] (SBHLAB)[address] Platelets (Bld) [#/Vol] 419 10*3/uL Normal 140-440 [facility] Comment on above: Performed By: #### L [id number], [id number] ####Mammal Keeper: UNA ARCE ([id number])[facility]ITALAngel [facility] (SBHLAB)[address] [place] [address] RBC (Bld) [#/Vol] 3.32 10*6/uL Low 4.40-5.90 [facility] Comment on above: Performed By: #### L [id number], [id number] ####Mammal Keeper: UNA ARCE ([id number])[facility]ITAL[facility] [place] (SBHLAB)[address] [place] [address] WBC (Bld) [#/Vol] 12.0 10*3/uL High 3.6-10.7 [facility] Comment on above: Performed By: #### L UP8752, [id number] ####Mammal Keeper: UNA ARCE ([id number])[facility]ITAL[facility] (SBHLAB)[address] COMPREHENSIVE METABOLIC PANE Anant 04-17-2025 Albumin [Mass/Vol] 2.1 g/dL Low 3.4-4.8 [facility] Comment on above: Performed By: #### L AB103, LAB17 ####Mammal Keeper: UNA ARCE ([id number])[facility] (SBHLAB)[address] ALP [Catalytic activity/Vol] 49 U/L Normal 40-150 [facility] Comment on above: Performed By: #### L AB103, LAB17 ####Mammal Keeper: UNA ARCE ([id number])[facility] [place] (SBHLAB)[address] [place] [address] [place] ALT [Catalytic activity/Vol] U/L Normal <40 [facility] Comment on above: Performed By: #### L AB103, LAB17 ####Mammal Keeper: UNA ARCE ([id number])[facility] [place] (SBHLAB)[address] Anion gap [Moles/Vol] 10 mmol/L Normal 3-13 [facility] Comment on above: Performed By: #### L AB103, LAB17 ####Mammal Keeper: UNA ARCE ([id number])[facility] [place] (SBHLAB)[address] AST [Catalytic activity/Vol] 22 U/L Normal <34 [facility] Comment on above: Performed By: #### L AB103, LAB17 ####Mammal Keeper: UNA ARCE ([phone])[facility] [place] (SBHLAB)[address] [place] [address] [place] Bilirubin [Mass/Vol] 0.5 mg/dL Normal <1.2 [facility] Comment on above: Performed By: #### L AB103, LAB17 ####Mammal Keeper: UNA ARCE ([id number])[facility] [place] (SBHLAB)[address] [place] [address] [place] Calcium [Mass/Vol] 8.4 mg/dL Low 8.8-10.0 [facility] Comment on above: Performed By: #### L AB103, LAB17 ####Mammal Keeper: UNA ARCE ([id number])LYNETTE BASHIRN (SBHLAB)[address] Chloride [Moles/Vol] 88 mmol/L Low 98-107 [facility] Comment on above: Performed By: #### L AB103, LAB17 ####Mammal Keeper: UNA ARCE ([id number])[facility]ITALAngel [facility] (SBHLAB)[address] CO2 [Moles/Vol] 40 mmol/L High 23-31 [facility] Comment on above: Performed By: #### L AB103, LAB17 ####Mammal Keeper: UNA ARCE ([id number])[facility] (HLAB)[address] Creatinine [Mass/Vol] 1.67 mg/dL High 0.72-1.25 [facility] Comment on above: Performed By: #### L DERICK, LAB17 ####Mammal Keeper: UNA ARCE ([id number])[facility] (HLAB)[address] GLOMERULAR FILTRATION RATE ML/MIN/1.73 SQ M.PREDICTED 38.9 mL/min/1.73m*2 Low >60.0 [facility] Comment on above: Result Comment: Calc ulation based on the Chronic Kidney Disease Epidemiology Collaboration (CKD-EPI) equation refit without adjustment for race Performed By: #### L 103, LAB17 ####Mammal Keeper: UNA ARCE ([id number])[facility] (SBHLAB)[address] [place] [address] [place] Glucose [Mass/Vol] 94 mg/dL Normal 82-115 [facility] Comment on above: Performed By: #### L AB103, LAB17 ####Mammal Keeper: UNA ARCE ([id number])[facility] (HLAB)[address] Potassium [Moles/Vol] 3.6 mmol/L Normal 3.5-5.1 [facility] Comment on above: Result Comment: Plas ma potassium values may be up to 0.5 mmol/L lower than serum values. Performed By: #### L AB103, LAB17 ####Mammal Keeper: UNA ARCE ([id number])[facility] [place] (SBHLAB)[address] Protein [Mass/Vol] 5.8 g/dL Low 6.4-8.3 [facility] Comment on above: Performed By: #### L AB103, LAB17 ####Mammal Keeper: UNA ARCE ([id number])[facility] [place] (SBHLAB)[address] Sodium [Moles/Vol] 138 mmol/L Normal 136-145 [facility] Comment on above: Performed By: #### L AB103, LAB17 ####Mammal Keeper: UNA ARCE ([id number])[facility]ITALA [facility] (SBHLAB)[address] Urea nitrogen [Mass/Vol] 46 mg/dL High 9-23 [facility] Comment on above: Performed By: #### L AB103, LAB17 ####Mammal Keeper: UNA ARCE ([id number])[facility] (SBHLAB)[address] Comprehensive metabolic 1998 panelon 04-17-2025 Albumin [Mass/Vol] 2.1 g/dL Low 3.4 - 4.8 g/dL [facility] ALP [Catalytic activity/Vol] 49 U/L 40 - 150 U/L [facility] ALT [Catalytic activity/Vol] U/L NINF - 40 U/L [facility] Anion gap [Moles/Vol] 10 mmol/L 3 - 13 mmol/L [facility] AST [Catalytic activity/Vol] 22 U/L NINF - 34 U/L [facility] Bilirubin [Mass/Vol] 0.5 mg/dL NINF - 1.2 mg/dL [facility] Calcium [Mass/Vol] 8.4 mg/dL Low 8.8 - 10. 0 mg/dL [facility] Chloride [Moles/Vol] 88 mmol/L Low 98 - 10 7 mmol/L [facility] CO2 [Moles/Vol] 40 mmol/L High 23 - 31 mmol/L [facility] Creatinine [Mass/Vol] 1.67 mg/dL High 0.72 - 1.25 mg/dL [facility] GFR/1.73 sq M.predicted (S/P/Bld) [Vol rate/Area] 38.9 mL/min Low - PINF [facility] Glucose [Mass/Vol] 94 mg/dL 82 - 115 mg/dL [facility] Interpretation and review of laboratory results Abnormal [facility] Potassium [Moles/Vol] 3.6 mmol/L 3.5 - 5.1 mmol/L [facility] Protein [Mass/Vol] 5.8 g/dL Low 6.4 - 8.3 g/dL [facility] Sodium [Moles/Vol] 138 mmol/L 136 - 145 mmol/L [facility] Urea nitrogen [Mass/Vol] 46 mg/dL High 9 - 23 mg/d L [facility] Laboratory - Chemistry and C hemistry - challengeon 04-17-2025 Magnesium [Mass/Vol] 1.8 mg/dL 1.6 - 2 .6 mg/dL [facility] Laboratory - Hematology and Cell countson 04-17-2025 Anisocytosis Ql (Bld) Slight Abnormal (none) [facility] Basophils (Bld) [#/Vol] 0.4 10*3/uL High 0.0 - 0.2 10*3/uL [facility] Basophils/100 WBC (Bld) 3 % High 0 - 2 % [facility] Eosinophils (Bld) [#/Vol] 0.2 10*3/uL 0.0 - 0.5 10*3/uL [facility] Eosinophils/100 WBC (Bld) 2 % 0 - 6 % [facility] Hypochromia Ql (Bld) Moderate Abnormal (none) [facility] Lymphocytes (Bld) [#/Vol] 1.3 10*3/uL 1.0 - 4.3 10*3/uL [facility] Lymphocytes/100 WBC (Bld) 11 % Low 15 - 45 % [facility] Monocytes (Bld) [#/Vol] 0.8 10*3/uL 0.0 - 0.9 10*3/uL [facility] Monocytes/100 WBC (Bld) 7 % 5 - 13 % [facility] Neutrophils (Bld) [#/Vol] 9.2 10*3/uL High 1.8 - 7.5 10*3/uL [facility] Poikilocytosis LM Ql (Bld) Moderate Abnormal (none) [facility] Polychromasia LM Ql (Bld) Slight Abnormal (none) [facility] RBC morphology finding Nom (Bld) abnormal [facility] Segmented neutrophils/100 WBC (Bld) 77 % 38 - 82 % [facility] Stomatocytes LM Ql (Bld) Moderate Abnormal (none) [facility] Target cells LM Ql (Bld) Slight Abnormal (none) [facility] MAGNESIUMon 04-17-2025 Magnesium [Mass/Vol] 1.8 mg/dL Normal 1.6-2.6 [facility] Comment on above: Result Comment: YARELI [place] COMMENTS:Higher values can be expected in females during menses. Performed By: #### L AB103, LAB17 ####Mammal Keeper: UNA ARCE ([id number])[facility]ITALAngel [facility] (SBHLAB)[address] MANUAL DIFFERENTIAL (CELLAVI BANDAR)on 04-17-2025 ANISOCYTOSIS PRESENCE IN BLOOD BY LIGHT MICROSCOPY Slight Abnormal (none) [facility] Comment on above: Performed By: #### Gilbert RN2058, [id number] ####Mammal Keeper: UNA ARCE ([id number])[facility]ITALAngel [place] (SBHLAB)[address] [place] [address] BAND NEUTROPHILS TOTAL PER COUNTED LEUKOCYTES BY MANUAL COUNT Normal [facility] Comment on above: Performed By: #### L [id number], [id number] ####Mammal Keeper: UNA ARCE ([id number])[facility] [place] (SBHLAB)[address] BASOPHILS (10*3/UL) IN BLOOD-CELLAVISION 0.4 10*3/uL High 0.0-0.2 [facility] Comment on above: Performed By: #### L [id number], [id number] ####Mammal Keeper: UNA ARCE ([id number])[facility] (SBHLAB)[address] [place] [address] [place] BASOPHILS TOTAL PER COUNTED LEUKOCYTES BY MANUAL COUNT 3 Normal [facility] Comment on above: Performed By: #### L [id number], [id number] ####Mammal Keeper: UNA STAUFFERMELANIE ([id number])[facility] (SBHLAB)155 [place] [address] [place] BASOPHILS/100 LEUKOCYTES IN BLOOD-CELLAVISION 3 % High 0-2 [facility] Comment on above: Performed By: #### L BN8310, [id number] ####Mammal Keeper: UNA ARCE ([id number])[facility] [place] (SBHLAB)[address] [place] [address] [place] BLASTS TOTAL PER COUNTED LEUKOCYTES BY MANUAL COUNT Normal [facility] Comment on above: Performed By: #### L [id number], [id number] ####Mammal Keeper: UNA ARCE ([id number])[facility] [place] (SBHLAB)[address] [place] [address] [place] EOSINOPHILS (10*3/UL) IN BLOOD-CELLAVISION 0.2 10*3/uL Normal 0.0-0.5 [facility] Comment on above: Performed By: #### L [id number], [id number] ####Mammal Keeper: UNA ARCE ([id number])[facility] [place] (SBHLAB)[address] [place] [address] [place] EOSINOPHILS TOTAL PER COUNTED LEUKOCYTES BY MANUAL COUNT 2 High 0-1 [facility] Comment on above: Performed By: #### L BS6591, [id number] ####Mammal Keeper: UNA ARCE ([id number])[facility] [place] (SBHLAB)[address] [place] [address] [place] EOSINOPHILS/100 LEUKOCYTES IN BLOOD-CELLAVISION 2 % Normal 0-6 [facility] Comment on above: Performed By: #### L CQ3088, [id number] ####Mammal Keeper: UNA ARCE ([id number])[facility] [place] (SBHLAB)[address] HYPOCHROMIA (PRESENCE) IN BLOOD BY LIGHT MICROSCOPY Moderate Abnormal (none) [facility] Comment on above: Performed By: #### L [id number], [id number] ####Mammal Keeper: UNA ARCE ([id number])[facility] [place] (SBHLAB)[address] [place] [address] [place] LYMPHOCYTES (10*3/UL) IN BLOOD-CELLAVISION 1.3 10*3/uL Normal 1.0-4.3 [facility] Comment on above: Performed By: #### L FR3492, [id number] ####Mammal Keeper: UNA ARCE ([id number])[facility] [place] (SBHLAB)[address] LYMPHOCYTES TOTAL PER COUNTED LEUKOCYTES BY MANUAL COUNT 11 Normal [facility] Comment on above: Performed By: #### L CX9749, [id number] ####Mammal Keeper: UNA ARCE ([id number])[facility]ITALA [facility]ADALU[facility]ITALN (SBHLAB)[address] [place] [address] [place] LYMPHOCYTES/100 LEUKOCYTES IN BLOOD-CELLAVISION 11 % Low 15-45 [facility] Comment on above: Performed By: #### L OI6813, [id number] ####Mammal Keeper: UNA ARCE ([id number])[facility]A [facility] (SBHLAB)[address] [place] [address] [place] METAMYELOCYTES TOTAL PER COUNTED LEUKOCYTES BY MANUAL COUNT Normal [facility] Comment on above: Performed By: #### L [id number], [id number] ####Mammal Keeper: UNA ARCE ([id number])[facility] [place] (SBHLAB)[address] [place] [address] [place] MONOCYTES (10*3/UL) IN BLOOD-CELLAVISION 0.8 10*3/uL Normal 0.0-0.9 [facility] Comment on above: Performed By: #### L [id number], [id number] ####Mammal Keeper: UNA ARCE ([id number])[facility] (SBHLAB)[address] [place] [address] [place] MONOCYTES TOTAL PER COUNTED LEUKOCYTES BY MANUAL COUNT 7 Normal [facility] Comment on above: Performed By: #### L MC6687, [id number] ####Mammal Keeper: UNA ARCE ([id number])[facility] (SBHLAB)[address] [place] [address] [place] MONOCYTES/100 LEUKOCYTES IN BLOOD-LUCIANA 7 % Normal -13 [facility] Comment on above: Performed By: #### L JC9897, [id number] ####Mammal Keeper: UNA ARCE ([id number])[facility] [place] (SBHLAB)[address] [place] [address] [place] MYELOCYTES COUNTED BY MANUAL COUNT Normal [facility] Comment on above: Performed By: #### L [id number], [id number] ####Mammal Keeper: UNA ARCE ([id number])[facility] (SBHLAB)[address] [place] [address] [place] NEUTROPHILS TOTAL PER COUNTED LEUKOCYTES BY MANUAL COUNT 77 Normal [facility] Comment on above: Performed By: #### L XA6749, [id number] ####Mammal Keeper: UNA ARCE ([id number])[facility] (SBHLAB)[address] [place] [address] [place] POIKILOCYTOSIS (PRESENCE) IN BLOOD BY LIGHT MICROSCOPY Moderate Abnormal (none) [facility] Comment on above: Performed By: #### L JG8288, [id number] ####Mammal Keeper: UNA ARCE ([id number])[facility] [place] (SBHLAB)[address] [place] [address] [place] POLYCHROMASIA IN BLOOD BY LIGHT MICROSCOPY Slight Abnormal (none) [facility] Comment on above: Performed By: #### L ZK8561, [id number] ####Mammal Keeper: UNA ARCE ([id number])[facility] (SBHLAB)[address] [place] [address] [place] PROMYELOCYTES TOTAL PER COUNTED LEUKOCYTES BY MANUAL COUNT Normal [facility] Comment on above: Performed By: #### L [id number], [id number] ####Mammal Keeper: UNA ARCE ([id number])[facility] (SBHLAB)[address] RBC MORPHOLOGY IN BLOOD abnormal Normal [facility] Comment on above: Performed By: #### L CX1006, [id number] ####Mammal Keeper: UNA ARCE ([id number])[facility] [place] (SBHLAB)[address] SEGMENTED NEUTROPHILS (10*3/UL) IN BLOOD-CELLAVISION 9.2 10*3/uL High 1.8-7.5 [facility] Comment on above: Performed By: #### L IG2613, [id number] ####Mammal Keeper: UNA ARCE ([id number])[facility] [place] (SBHLAB)[address] [place] [address] [place] SEGMENTED NEUTROPHILS/100 LEUKOCYTES-CE 77 % Normal 38-82 [facility] Comment on above: Performed By: #### L UD6759, [id number] ####Mammal Keeper: UNA ARCE ([id number])[facility] [place] (SBHLAB)[address] [place] [address] [place] STOMATOCYTES IN BLOOD BY LIGHT MICROSCOPY Moderate Abnormal (none) [facility] Comment on above: Performed By: #### L RI7714, [id number] ####Mammal Keeper: UNA ARCE ([id number])[facility] [place] (SBHLAB)[address] [place] [address] [place] TARGET CELLS IN BLOOD BY LIGHT MICROSCOPY Slight Abnormal (none) [facility] Comment on above: Performed By: #### L CT2250, [id number] ####Mammal Keeper: UNA ARCE ([id number])[facility] [place] (SBHLAB)[address] [place] [address] [place] UNCLASSIFIED CELLS TOTAL PER COUNTED LEUKOCYTES BY MANUAL COUNT Normal [facility] Comment on above: Performed By: #### L [id number], [id number] ####Mammal Keeper: UNA ARCE ([id number])[facility] (SBHLAB)[address] VARIANT LYMPHOCYTES TOTAL PER COUNTED LEUKOCYTES BY MANUAL COUNT Normal [facility] Comment on above: Performed By: #### L RR0691, [id number] ####Mammal Keeper: UNA ARCE ([id number])[facility] (SBHLAB)[address] Magnesium [Mass/Vol]on 04-17 Interpretation and review of laboratory results Normal [facility] No Panel Informationon 04-17 [facility] 2 High 0 - 1 [facility] Interpretation and review of laboratory results Abnormal [facility] Lymphocytes Manual 11 [facility] Monocytes Manual 7 [facility] Neutrophils Manual 77 [facility] Nursing Noteon 04-17-2025 Nursing Note Report given to Flor MYERS at [facility]. All belongings sent with patient, including eyewear. HL removed, site WNL. Normal [facility] Progress Noteon 04-17-2025 Progress Note Normal [facility] Progress Note Normal [facility] [id number] 04-16-2025 [id number] Tasked weekend TTC t o follow for possible dc over the weekend. manager assisted living to follow and assist as needed. Normal [facility] [id number] [phone] Complete in HEN S for [facility] per TCC request [id number] Normal [facility] CBC W Auto Differential pane l (Bld)Ordered By: Dayan Hernandez on 04-16-2025 Erythrocyte distribution width (RBC) [Ratio] 25.7 % High 11.5 - 15.0 % [facility] Hematocrit (Bld) [Volume fraction] 28.4 % Low 40.0 - 52.0 % [facility] Hemoglobin (Bld) [Mass/Vol] 8 g/dL Low 13.0 - 18.0 g/dL [facility] Interpretation and review of laboratory results Abnormal [facility] MCH (RBC) [Entitic mass] 23.7 pg Low 26. 0 - 34.0 pg [facility] MCHC (RBC) [Mass/Vol] 28.2 % Low 30.5 - 36.0 % [facility] MCV (RBC) [Entitic vol] 84.3 fL 77.0 - 99.0 fL [facility] Platelet mean volume (Bld) [Entitic vol] 9.1 fL 9.0 - 12.7 fL [facility] Platelets (Bld) [#/Vol] 405 10*3/uL 140 - 440 10*3/uL [facility] RBC (Bld) [#/Vol] 3.37 10*6/uL Low 4.40 - 5.9 0 10*6/uL [facility] WBC (Bld) [#/Vol] 13.1 10*3/uL High 3.6 - 10.7 10*3/uL [facility] CBC WITH AUTO DIFFERENTIALon 04-16-2025 Erythrocyte distribution width (RBC) [Ratio] 25.7 % High 11.5-15.0 [facility] Comment on above: Performed By: #### L [id number], [id number] ####Mammal Keeper: UNA [id number])[facility] ([facility])[address] [place] [address] Hematocrit (Bld) [Volume fraction] 28.4 % Low 40.0-52.0 [facility] Comment on above: Performed By: #### L [id number], [id number] ####Mammal Keeper: UNA ARCE ([id number])[facility] ([facility])[address] [place] [address] Hemoglobin (Bld) [Mass/Vol] 8.0 g/dL Low 13.0-18.0 [facility] Comment on above: Performed By: #### L JJ0392, [id number] ####Mammal Keeper: UNA ARCE ([id number])[facility]ITALAngel [facility]IRN (SBHLAB)[address] MCH (RBC) [Entitic mass] 23.7 pg Low 26.0-34.0 [facility] Comment on above: Performed By: #### L JX1360, [id number] ####Mammal Keeper: UNA ARCE ([id number])[facility]ITALAngel [facility] (SBHLAB)[address] MCHC 28.2 % Low 30.5-36.0 [facility] Comment on above: Performed By: #### L WC3472, [id number] ####Mammal Keeper: UNA STAUFFERMELANIE ([phone])[facility]ITALAngel [facility] (SBHLAB)[address] [place] [address] MCV (RBC) [Entitic vol] 84.3 fL Normal 77.0-99.0 [facility] Comment on above: Performed By: #### L IK9561, [id number] ####Mammal Keeper: UNA ARCE ([id number])[facility]ITALAngel [facility] (SBHLAB)[address] Platelet mean volume (Bld) [Entitic vol] 9.1 fL Normal 9.0-12.7 [facility] Comment on above: Performed By: #### L [id number], [id number] ####Mammal Keeper: UNA ARCE ([id number])[facility]ITALAngel [facility] (SBHLAB)[address] Platelets (Bld) [#/Vol] 405 10*3/uL Normal 140-440 [facility] Comment on above: Performed By: #### L [id number], [id number] ####Mammal Keeper: UNA STAUFFERMELANIE ([id number])[facility]ITAL[facility] (SBHLAB)[address] RBC (Bld) [#/Vol] 3.37 10*6/uL Low 4.40-5.90 [facility] Comment on above: Performed By: #### L [id number], [id number] ####Mammal Keeper: UNA ARCE ([id number])[facility] [place] (SBHLAB)[address] WBC (Bld) [#/Vol] 13.1 10*3/uL High 3.6-10.7 [facility] Comment on above: Performed By: #### L DE1832, [id number] ####Mammal Keeper: UNA ARCE ([id number])[facility]A [facility]URAGUADALUPE [facility]ITALN (SBHLAB)[address] COMPREHENSIVE METABOLIC PANE Anant 04-16-2025 Albumin [Mass/Vol] 2.2 g/dL Low 3.4-4.8 [facility] Comment on above: Performed By: #### L AB103, LAB17 ####Mammal Keeper: UNA ARCE ([id number])[facility] [place] (SBHLAB)[address] ALP [Catalytic activity/Vol] 55 U/L Normal 40-150 [facility] Comment on above: Performed By: #### L AB103, LAB17 ####Mammal Keeper: UNA ARCE ([id number])[facility] [place] (SBHLAB)[address] ALT [Catalytic activity/Vol] 6 U/L Normal <40 [facility] Comment on above: Performed By: #### L AB103, LAB17 ####Mammal Keeper: UNA ARCE ([id number])[facility] [place] (SBHLAB)[address] Anion gap [Moles/Vol] 10 mmol/L Normal 3-13 [facility] Comment on above: Performed By: #### L AB103, LAB17 ####Mammal Keeper: UNA ARCE ([id number])[facility]BGUADALUPE [facility]PITALN (SBHLAB)[address] [place] [address] [place] AST [Catalytic activity/Vol] 23 U/L Normal <34 [facility] Comment on above: Performed By: #### L AB103, LAB17 ####Mammal Keeper: UNA ARCE ([id number])[facility] [place] (SBHLAB)[address] Bilirubin [Mass/Vol] 0.5 mg/dL Normal <1.2 [facility] Comment on above: Performed By: #### L AB103, LAB17 ####Mammal Keeper: UNA ARCE ([id number])[facility] [place] (SBHLAB)[address] Calcium [Mass/Vol] 8.2 mg/dL Low 8.8-10.0 [facility] Comment on above: Performed By: #### L AB103, LAB17 ####Mammal Keeper: UNA ARCE ([id number])[facility] [place] (SBHLAB)[address] [place] [address] [place] Chloride [Moles/Vol] 87 mmol/L Low 98-107 [facility] Comment on above: Performed By: #### L AB103, LAB17 ####Mammal Keeper: UNA ARCE ([id number])[facility] [place] (SBHLAB)155 [place] [address] [place] CO2 [Moles/Vol] 43 mmol/L High 23-31 [facility] Comment on above: Performed By: #### L AB103, LAB17 ####Mammal Keeper: UNA ARCE ([id number])[facility] [place] (SBHLAB)[address] [place] [address] [place] Creatinine [Mass/Vol] 1.81 mg/dL High 0.72-1.25 [facility] Comment on above: Performed By: #### L AB103, LAB17 ####Mammal Keeper: UNA ARCE ([phone])[facility] [place] (SBHLAB)[address] [place] [address] [place] GLOMERULAR FILTRATION RATE ML/MIN/1.73 SQ M.PREDICTED 35.3 mL/min/1.73m*2 Low >60.0 [facility] Comment on above: Result Comment: Calc ulation based on the Chronic Kidney Disease Epidemiology Collaboration (CKD-EPI) equation refit without adjustment for race Performed By: #### L AB103, LAB17 ####Mammal Keeper: UNA ARCE ([id number])[facility] (SBHLAB)[address] Glucose [Mass/Vol] 114 mg/dL Normal 82-115 [facility] Comment on above: Performed By: #### L AB103, LAB17 ####Mammal Keeper: UNA ARCE ([phone])[facility] (SBHLAB)[address] Potassium [Moles/Vol] 3.6 mmol/L Normal 3.5-5.1 [facility] Comment on above: Result Comment: [facility] potassium values may be up to 0.5 mmol/L lower than serum values. Performed By: #### L AB103, LAB17 ####Mammal Keeper: UNA ARCE ([id number])[facility] (SBHLAB)[address] Protein [Mass/Vol] 6.0 g/dL Low 6.4-8.3 [facility] Comment on above: Performed By: #### L AB103, LAB17 ####Mammal Keeper: UNA ARCE ([phone])[facility] (SBHLAB)[address] [place] [address] [place] Sodium [Moles/Vol] 140 mmol/L Normal 136-145 [facility] Comment on above: Performed By: #### L AB103, LAB17 ####Mammal Keeper: UNA ARCE ([phone])[facility] (SBHLAB)[address] Urea nitrogen [Mass/Vol] 46 mg/dL High 9-23 [facility] Comment on above: Performed By: #### L AB103, LAB17 ####Mammal Keeper: UNA ARCE ([phone])[facility] (SBHLAB)[address] [place] [address] Comprehensive metabolic 1998 panelon 04-16-2025 Albumin [Mass/Vol] 2.2 g/dL Low 3.4 - 4.8 g/dL [facility] ALP [Catalytic activity/Vol] 55 U/L 40 - 150 U/L [facility] ALT [Catalytic activity/Vol] 6 U/L NINF - 40 U/L [facility] Anion gap [Moles/Vol] 10 mmol/L 3 - 13 mmol/L [facility] AST [Catalytic activity/Vol] 23 U/L NINF - 34 U/L [facility] Bilirubin [Mass/Vol] 0.5 mg/dL NINF - 1.2 mg/dL [facility] Calcium [Mass/Vol] 8.2 mg/dL Low 8.8 - 10. 0 mg/dL [facility] Chloride [Moles/Vol] 87 mmol/L Low 98 - 10 7 mmol/L [facility] CO2 [Moles/Vol] 43 mmol/L High 23 - 31 mmol/L [facility] Creatinine [Mass/Vol] 1.81 mg/dL High 0.72 - 1.25 mg/dL [facility] GFR/1.73 sq M.predicted (S/P/Bld) [Vol rate/Area] 35.3 mL/min Low - PINF [facility] Glucose [Mass/Vol] 114 mg/dL 82 - 115 mg/dL [facility] Interpretation and review of laboratory results Abnormal [facility] Potassium [Moles/Vol] 3.6 mmol/L 3.5 - 5.1 mmol/L [facility] Protein [Mass/Vol] 6 g/dL Low 6.4 - 8.3 g/dL [facility] Sodium [Moles/Vol] 140 mmol/L 136 - 145 mmol/L [facility] Urea nitrogen [Mass/Vol] 46 mg/dL High 9 - 23 mg/d L [facility] Laboratory - Chemistry and C hemistry - challengeon 04-16-2025 Magnesium [Mass/Vol] 1.8 mg/dL 1.6 - 2 .6 mg/dL [facility] Laboratory - Hematology and Cell countson 04-16-2025 Anisocytosis Ql (Bld) Moderate Abnormal (none) [facility] Basophils (Bld) [#/Vol] 0.1 10*3/uL 0.0 - 0.2 10*3/uL [facility] Basophils/100 WBC (Bld) 1 % 0 - 2 % [facility] [place] cells LM Ql (Bld) Slight Abnormal (none) [facility] Eosinophils (Bld) [#/Vol] 0.5 10*3/uL 0.0 - 0.5 10*3/uL [facility] Eosinophils/100 WBC (Bld) 4 % 0 - 6 % [facility] Hypochromia Ql (Bld) Slight Abnormal (none) [facility] Lymphocytes (Bld) [#/Vol] 1.6 10*3/uL 1.0 - 4.3 10*3/uL [facility] Lymphocytes/100 WBC (Bld) 12 % Low 15 - 45 % [facility] Monocytes (Bld) [#/Vol] 0.9 10*3/uL 0.0 - 0.9 10*3/uL [facility] Monocytes/100 WBC (Bld) 7 % 5 - 13 % [facility] Neutrophils (Bld) [#/Vol] 9.8 10*3/uL High 1.8 - 7.5 10*3/uL [facility] Poikilocytosis LM Ql (Bld) Slight Abnormal (none) [facility] RBC morphology finding Nom (Bld) abnormal [facility] Segmented neutrophils/100 WBC (Bld) 75 % 38 - 82 % [facility] Variant lymphocytes (Bld) [#/Vol] 0.3 10*3/uL High NINF - 0.0 10*3/uL [facility] Variant lymphocytes/100 WBC (Bld) 2 % High NINF - 0 % [facility] MAGNESIUMon 04-16-2025 Magnesium [Mass/Vol] 1.8 mg/dL Normal 1.6-2.6 [facility] Comment on above: Result Comment: YARELI [place] COMMENTS:Higher values can be expected in females during menses. Performed By: #### L AB103, LAB17 ####Mammal Keeper: UNA ARCE ([phone])[facility] (SBHLAB)[address] [place] [address] MANUAL DIFFERENTIAL (CELLAVI BANDAR)on 04-16-2025 ANISOCYTOSIS PRESENCE IN BLOOD BY LIGHT MICROSCOPY Moderate Abnormal (none) [facility] Comment on above: Performed By: #### L [id number], [id number] ####Mammal Keeper: UNA ARCE ([phone])[facility] [place] ([facility])[address] [place] [address] [place] BAND NEUTROPHILS TOTAL PER COUNTED LEUKOCYTES BY MANUAL COUNT Normal [facility] Comment on above: Performed By: #### L [id number], [id number] ####Mammal Keeper: UNA STAUFFERMELANIE ([phone])[facility] [place] (SB[facility])[address] [place] [address] [place] BASOPHILS (10*3/UL) IN BLOOD-CELLAVISION 0.1 10*3/uL Normal 0.0-0.2 [facility] Comment on above: Performed By: #### L [id number], [id number] ####Mammal Keeper: UNA ARCE ([phone])[facility] [place] (SB[facility])[address] [place] [address] [place] BASOPHILS TOTAL PER COUNTED LEUKOCYTES BY MANUAL COUNT 1 Normal [facility] Comment on above: Performed By: #### L [id number], [id number] ####Mammal Keeper: UNA ARCE ([phone])[facility] [place] ([facility])[address] [place] [address] [place] BASOPHILS/100 LEUKOCYTES IN BLOOD-CELLAVISION 1 % Normal 0-2 [facility] Comment on above: Performed By: #### L [id number], [id number] ####Mammal Keeper: UNA ARCE ([id number])[facility] [place] ([facility])[address] [place] [address] [place] BLASTS TOTAL PER COUNTED LEUKOCYTES BY MANUAL COUNT Normal [facility] Comment on above: Performed By: #### L [id number], [id number] ####Mammal Keeper: UNA ARCE ([id number])[facility] [place] ([facility])[address] [place] [address] [place] MEENA CELLS PRESENCE IN BLOOD BY LIGHT MICROSCOPY Slight Abnormal (none) [facility] Comment on above: Performed By: #### L [id number], [id number] ####Mammal Keeper: UNA ARCE ([id number])[facility] [place] ([facility])[address] [place] [address] [place] EOSINOPHILS (10*3/UL) IN BLOOD-CELLAVISION 0.5 10*3/uL Normal 0.0-0.5 [facility] Comment on above: Performed By: #### L [id number], [id number] ####Mammal Keeper: UNA ARCE ([id number])[facility] [place] ([facility])[address] [place] [address] [place] EOSINOPHILS TOTAL PER COUNTED LEUKOCYTES BY MANUAL COUNT 4 High 0-1 [facility] Comment on above: Performed By: #### L [id number], [id number] ####Mammal Keeper: UNA ARCE ([id number])[facility] [place] ([facility])[address] [place] [address] [place] EOSINOPHILS/100 LEUKOCYTES IN BLOOD-CELLAVISION 4 % Normal 0-6 [facility] Comment on above: Performed By: #### L [id number], [id number] ####Mammal Keeper: UNA ARCE ([phone])[facility] [place] ([facility])[address] [place] [address] [place] HYPOCHROMIA (PRESENCE) IN BLOOD BY LIGHT MICROSCOPY Slight Abnormal (none) [facility] Comment on above: Performed By: #### L [id number], [id number] ####Mammal Keeper: UNA ARCE ([id number])[facility] [place] ([facility])[address] [place] [address] [place] LYMPHOCYTE VARIANT/100 LEUKOCYTES IN BLOOD- CELLAVISION 2 % High <=0 [facility] Comment on above: Performed By: #### L [id number], [id number] ####Mammal Keeper: UNA ARCE ([phone])[facility] [place] ([facility])[address] [place] [address] [place] LYMPHOCYTES (10*3/UL) IN BLOOD-CELLAVISION 1.6 10*3/uL Normal 1.0-4.3 [facility] Comment on above: Performed By: #### L [id number], [id number] ####Mammal Keeper: UNA ARCE ([id number])[facility] (SBHLAB)[address] LYMPHOCYTES TOTAL PER COUNTED LEUKOCYTES BY MANUAL COUNT 12 Normal [facility] Comment on above: Performed By: #### L [id number], [id number] ####Mammal Keeper: UNA MOHRCER ([phone])[facility] [place] ([facility])[address] [place] [address] [place] LYMPHOCYTES/100 LEUKOCYTES IN BLOOD-CELLAVISION 12 % Low 15-45 [facility] Comment on above: Performed By: #### L [id number], [id number] ####Mammal Keeper: UNA ARCE ([id number])[facility] (SBHLAB)[address] METAMYELOCYTES TOTAL PER COUNTED LEUKOCYTES BY MANUAL COUNT Comment on above: Performed By: #### L [id number], [id number] ####Mammal Keeper: UNA ARCE ([id number])[facility] [place] ([facility])[address] [place] [address] [place] MONOCYTES (10*3/UL) IN BLOOD-CELLAVISION 0.9 10*3/uL Normal 0.0-0.9 [facility] Comment on above: Performed By: #### L [id number], [id number] ####Mammal Keeper: UNA ARCE ([phone])[facility] [place] ([facility])[address] [place] [address] [place] MONOCYTES TOTAL PER COUNTED LEUKOCYTES BY MANUAL COUNT 7 Normal [facility] Comment on above: Performed By: #### L [id number], [id number] ####Mammal Keeper: UNA ARCE ([phone])[facility] (SBHLAB)[address] [place] [address] [place] MONOCYTES/100 LEUKOCYTES IN BLOOD-LUCIANA 7 % Normal 5-13 [facility] Comment on above: Performed By: #### L [id number], [id number] ####Mammal Keeper: UNA ARCE ([id number])[facility] (SBHLAB)[address] [place] [address] [place] MYELOCYTES COUNTED BY MANUAL COUNT Normal [facility] Comment on above: Performed By: #### L [id number], [id number] ####Mammal Keeper: UNA ARCE ([id number])[facility] (SBHLAB)[address] [place] [address] [place] NEUTROPHILS TOTAL PER COUNTED LEUKOCYTES BY MANUAL COUNT 77 Normal [facility] Comment on above: Performed By: #### L [id number], [id number] ####Mammal Keeper: UNA ARCE ([id number])[facility] [place] ([facility])[address] [place] [address] [place] POIKILOCYTOSIS (PRESENCE) IN BLOOD BY LIGHT MICROSCOPY Slight Abnormal (none) [facility] Comment on above: Performed By: #### L [id number], [id number] ####Mammal Keeper: UNA ARCE ([phone])[facility] [place] ([facility])[address] [place] [address] [place] PROMYELOCYTES TOTAL PER COUNTED LEUKOCYTES BY MANUAL COUNT Normal [facility] Comment on above: Performed By: #### L [id number], [id number] ####Mammal Keeper: UNA ARCE ([id number])[facility] [place] ([facility])[address] [place] [address] [place] RBC MORPHOLOGY IN BLOOD abnormal Normal [facility] Comment on above: Performed By: #### L [id number], [id number] ####Mammal Keeper: UNA ARCE ([id number])[facility] [place] ([facility])[address] [place] [address] [place] SEGMENTED NEUTROPHILS (10*3/UL) IN BLOOD-CELLAVISION 9.8 10*3/uL High 1.8-7.5 [facility] Comment on above: Performed By: #### L [id number], [id number] ####Mammal Keeper: UNA ARCE ([id number])[facility] [place] ([facility])[address] SEGMENTED NEUTROPHILS/100 LEUKOCYTES-CE 75 % Normal 38-82 [facility] Comment on above: Performed By: #### L [id number], [id number] ####Mammal Keeper: UNA ARCE ([id number])[facility] [place] ([facility])[address] UNCLASSIFIED CELLS TOTAL PER COUNTED LEUKOCYTES BY MANUAL COUNT Normal [facility] Comment on above: Performed By: #### L [id number], [id number] ####Mammal Keeper: UNA ARCE ([id number])[facility] (SBHLAB)[address] VARIANT LYMPHOCYTES (10*3/UL) IN BLOOD-CELLAVISION 0.3 10*3/uL High <=0.0 [facility] Comment on above: Performed By: #### L [id number], [id number] ####Mammal Keeper: UNA ARCE ([id number])[facility] [place] ([facility])[address] VARIANT LYMPHOCYTES TOTAL PER COUNTED LEUKOCYTES BY MANUAL COUNT 2 Normal [facility] Comment on above: Performed By: #### L [id number], [id number] ####Mammal Keeper: UNA ARCE ([id number])[facility] [place] ([facility])[address] [place] [address] [place] Magnesium [Mass/Vol]on 04-16 Interpretation and review of laboratory results Normal [facility] No Panel Informationon 04-16 [facility] Atypical Lymphocytes Manual 2 [facility] Ajaline Basophils Manual [facility] E[facility] Manual 4 High 0 - 1 [facility] Interpretation and review of laboratory results Abnormal [facility] Ajaline Lymphocytes Manual 12 [facility] Monocytes Manual 7 [facility] Neutrophils Manual 77 [facility] Nursing Noteon 04-16-2025 Nursing Note Normal [facility] Progress Noteon 04-16-2025 Progress Note Normal [facility] Progress [facility] Progress [facility] Progress Note Normal [facility] [id number] 04-15-2025 [id number] Normal [facility] Bacteria identified Anaer cx Nom (Unsp spec)on 04-15-2025 Interpretation and review of laboratory results Normal [facility] CBC W Auto Differential pane l (Bld)on 04-15-2025 Erythrocyte distribution width (RBC) [Ratio] 25.3 % High 11.5 - 15.0 % [facility] Hematocrit (Bld) [Volume fraction] 28 % Low 40.0 - 52.0 % [facility] Hemoglobin (Bld) [Mass/Vol] 7.8 g/dL Low 13.0 - 18.0 g/dL [facility] Interpretation and review of laboratory results Abnormal [facility] MCH (RBC) [Entitic mass] 23.4 pg Low 26. 0 - 34.0 pg [facility] MCHC (RBC) [Mass/Vol] 27.9 % Low 30.5 - 36.0 % [facility] MCV (RBC) [Entitic vol] 84.1 fL 77.0 - 99.0 fL [facility] Platelet mean volume (Bld) [Entitic vol] 9.1 fL 9.0 - 12.7 fL [facility] Platelets (Bld) [#/Vol] 332 10*3/uL 140 - 440 10*3/uL [facility] RBC (Bld) [#/Vol] 3.33 10*6/uL Low 4.40 - 5.9 0 10*6/uL [facility] WBC (Bld) [#/Vol] 12.4 10*3/uL High 3.6 - 10.7 10*3/uL [facility] CBC WITH AUTO DIFFERENTIALon 04-15-2025 Erythrocyte distribution width (RBC) [Ratio] 25.3 % High 11.5-15.0 [facility] Comment on above: Performed By: #### L [id number], [id number] ####Mammal Keeper: UNA STAUFFERMELANIE ([id number])[facility] [place] (SBHLAB)[address] Hematocrit (Bld) [Volume fraction] 28.0 % Low 40.0-52.0 [facility] Comment on above: Performed By: #### L [id number], [id number] ####Mammal Keeper: UNA ARCE ([phone])[facility]BGUADALU[facility] (SBHLAB)[address] Hemoglobin (Bld) [Mass/Vol] 7.8 g/dL Low 13.0-18.0 [facility] Comment on above: Performed By: #### L [id number], [id number] ####Mammal Keeper: UNA STAUFFERMELANIE ([id number])[facility]ITAL[facility] (SBHLAB)[address] MCH (RBC) [Entitic mass] 23.4 pg Low 26.0-34.0 [facility] Comment on above: Performed By: #### L [id number], [id number] ####Mammal Keeper: UNA ARCE ([id number])[facility] S[facility]HEZGUADALU[facility] HOSPITALN (SBHLAB)[address] MCHC 27.9 % Low 30.5-36.0 [facility] Comment on above: Performed By: #### L [id number], [id number] ####Mammal Keeper: UNA ARCE ([id number])[facility]ZGUADALU[facility]ITALN (SBHLAB)[address] MCV (RBC) [Entitic vol] 84.1 fL Normal 77.0-99.0 [facility] Comment on above: Performed By: #### L [id number], [id number] ####Mammal Keeper: UNA ARCE ([id number])[facility] [place] (SBHLAB)[address] Platelet mean volume (Bld) [Entitic vol] 9.1 fL Normal 9.0-12.7 [facility] Comment on above: Performed By: #### L [id number], [id number] ####Mammal Keeper: UNA ARCE ([id number])[facility] LAURAGUADALU[facility]OSPITALN (SBHLAB)[address] Platelets (Bld) [#/Vol] 332 10*3/uL Normal 140-440 [facility] Comment on above: Performed By: #### L [id number], [id number] ####Mammal Keeper: UNA ARCE ([id number])[facility] [place] (SBHLAB)[address] RBC (Bld) [#/Vol] 3.33 10*6/uL Low 4.40-5.90 [facility] Comment on above: Performed By: #### L [id number], [id number] ####Mammal Keeper: UNA ARCE ([id number])[facility]BGUADALU[facility]OSPITALN (SBHLAB)[address] WBC (Bld) [#/Vol] 12.4 10*3/uL High 3.6-10.7 [facility] Comment on above: Performed By: #### L [id number], [id number] ####Mammal Keeper: UNA ARCE ([phone])[facility] (SBHLAB)[address] COMPREHENSIVE METABOLIC PANE Anant 04-15-2025 Albumin [Mass/Vol] 2.1 g/dL Low 3.4-4.8 [facility] Comment on above: Performed By: #### L AB17, [id number] ####Mammal Keeper: UNA ARCE ([id number])[facility] ALP [Catalytic activity/Vol] 48 U/L Normal 40-150 [facility] Comment on above: Performed By: #### L AB17, [id number] ####Mammal Keeper: UNA [id number])[facility] (SBHLAB)[address] ALT [Catalytic activity/Vol] U/L Normal <40 [facility] Comment on above: Performed By: #### L AB17, [id number] ####Mammal Keeper: UNA ARCE ([id number])[facility] (SBHLAB)[address] Anion gap [Moles/Vol] 9 mmol/L Normal 3-13 [facility] Comment on above: Performed By: #### L AB17, [id number] ####Mammal Keeper: UNA ARCE ([id number])[facility] [place] ([facility])[address] AST [Catalytic activity/Vol] 21 U/L Normal <34 [facility] Comment on above: Performed By: #### L AB17, [id number] ####Mammal Keeper: UNA ARCE ([id number])[facility] [place] ([facility])[address] Bilirubin [Mass/Vol] 0.6 mg/dL Normal <1.2 [facility] Comment on above: Performed By: #### L AB17, [id number] ####Mammal Keeper: UNA ARCE ([phone])[facility] [place] ([facility])[address] Calcium [Mass/Vol] 8.2 mg/dL Low 8.8-10.0 [facility] Comment on above: Performed By: #### L AB17, [id number] ####Mammal Keeper: UNA ARCE ([id number])[facility] [place] ([facility])[address] [place] [address] [place] Chloride [Moles/Vol] 90 mmol/L Low 98-107 [facility] Comment on above: Performed By: #### L AB17, [id number] ####Mammal Keeper: UNA ARCE ([phone])[facility] [place] ([facility])[address] CO2 [Moles/Vol] 40 mmol/L High 23-31 [facility] Comment on above: Performed By: #### L AB17, [id number] ####Mammal Keeper: UNA ARCE ([id number])[facility] BASHIRN (SBHLAB)[address] Creatinine [Mass/Vol] 1.58 mg/dL High 0.72-1.25 [facility] Comment on above: Performed By: #### L AB17, [id number] ####Mammal Keeper: UNA ARCE ([id number])[facility] SANCHEZGUADALUPE COUNTY HOSPITALN (SBHLAB)[address] GLOMERULAR FILTRATION RATE ML/MIN/1.73 SQ M.PREDICTED 41.6 mL/min/1.73m*2 Low >60.0 [facility] Comment on above: Result Comment: Calc ulation based on the Chronic Kidney Disease Epidemiology Collaboration (CKD-EPI) equation refit without adjustment for race Performed By: #### L AB17, [id number] ####Mammal Keeper: UNA ARCE ([id number])[facility] S[facility]HEZGUADALUPE COUNTY HOSPITALN (SBHLAB)[address] Glucose [Mass/Vol] 130 mg/dL High 82-115 [facility] Comment on above: Performed By: #### L AB17, [id number] ####Mammal Keeper: UNA ARCE ([id number])[facility] SANCHEZGUADALUPE COUNTY HOSPITALN (SBHLAB)[address] Potassium [Moles/Vol] 3.5 mmol/L Normal 3.5-5.1 [facility] Comment on above: Result Comment: [facility] potassium values may be up to 0.5 mmol/L lower than serum values. Performed By: #### L AB17, [id number] ####Mammal Keeper: UNA ARCE ([id number])[facility]HEZGUADALU[facility]OSPITALN (SBHL[facility])[address] Protein [Mass/Vol] 5.7 g/dL Low 6.4-8.3 [facility] Comment on above: Performed By: #### L AB17, [id number] ####Mammal Keeper: UNA BERMUDEZSILASMELANIE ([phone])[facility] (SBHLAB)[address] Sodium [Moles/Vol] 139 mmol/L Normal 136-145 [facility] Comment on above: Performed By: #### L AB17, [id number] ####Mammal Keeper: UNA BERMUDEZPEDRO ([phone])[facility] (SBHLAB)[address] Urea nitrogen [Mass/Vol] 43 mg/dL High 9-23 [facility] Comment on above: Performed By: #### L AB17, [id number] ####Mammal Keeper: UNAANJEL BERMUDEZPEDRO ([id number])[facility] (SBHLAB)[address] Comprehensive metabolic 1998 panelon 04-15-2025 Albumin [Mass/Vol] 2.1 g/dL Low 3.4 - 4.8 g/dL [facility] ALP [Catalytic activity/Vol] 48 U/L 40 - 150 U/L [facility] ALT [Catalytic activity/Vol] U/[facility] U/L [facility] Anion gap [Moles/Vol] 9 mmol/L 3 - 13 mmol/L [facility] AST [Catalytic activity/Vol] 21 U/L [facility] U/L [facility] Bilirubin [Mass/Vol] 0.6 mg/dL NINF - 1.2 mg/dL [facility] Calcium [Mass/Vol] 8.2 mg/dL Low 8.8 - 10. 0 mg/dL [facility] Chloride [Moles/Vol] 90 mmol/L Low 98 - 10 7 mmol/L [facility] CO2 [Moles/Vol] 40 mmol/L High 23 - 31 mmol/L [facility] Creatinine [Mass/Vol] 1.58 mg/dL High 0.72 - 1.25 mg/dL [facility] GFR/1.73 sq M.predicted (S/P/Bld) [Vol rate/Area] 41.6 mL/min Low - PINF [facility] Glucose [Mass/Vol] 130 mg/dL High 82 - 115 mg/dL [facility] Interpretation and review of laboratory results Abnormal [facility] Potassium [Moles/Vol] 3.5 mmol/L 3.5 - 5.1 mmol/L [facility] Protein [Mass/Vol] 5.7 g/dL Low 6.4 - 8.3 g/dL [facility] Sodium [Moles/Vol] 139 mmol/L 136 - 145 mmol/L [facility] Urea nitrogen [Mass/Vol] 43 mg/dL High 9 - 23 mg/d L [facility] Laboratory - Chemistry and C hemistry - challengeon 04-15-2025 Magnesium [Mass/Vol] 1.8 mg/dL 1.6 - 2 .6 mg/dL [facility] Laboratory - Hematology and Cell countson 04-15-2025 Anisocytosis Ql (Bld) Moderate Abnormal (none) [facility] Basophils (Bld) [#/Vol] 0.2 10*3/uL 0.0 - 0.2 10*3/uL [facility] Basophils/100 WBC (Bld) 2 % 0 - 2 % [facility] Eosinophils (Bld) [#/Vol] 0.1 10*3/uL 0.0 - 0.5 10*3/uL [facility] Eosinophils/100 WBC (Bld) 1 % 0 - 6 % [facility] Hypochromia Ql (Bld) Moderate Abnormal (none) [facility] Lymphocytes (Bld) [#/Vol] 1.2 10*3/uL 1.0 - 4.3 10*3/uL [facility] Lymphocytes/100 WBC (Bld) 10 % Low 15 - 45 % [facility] Monocytes (Bld) [#/Vol] 1.6 10*3/uL High 0.0 - 0.9 10*3/uL [facility] Monocytes/100 WBC (Bld) 13 % 5 - 13 % [facility] Neutrophils (Bld) [#/Vol] 9.3 10*3/uL High 1.8 - 7.5 10*3/uL [facility] Poikilocytosis LM Ql (Bld) Slight Abnormal (none) [facility] RBC morphology finding Nom (Bld) abnormal [facility] Segmented neutrophils/100 WBC (Bld) 75 % 38 - 82 % [facility] Stomatocytes LM Ql (Bld) Slight Abnormal (none) [facility] - Microbiology an d Antimicrobial susceptibilityon 04-15-2025 Bacteria identified Anaer cx Nom (Unsp spec) No growth at 5 days [facility] Lower GI hemoglobin spec 1 I A Ql (Stl)Ordered By: Haroldo Alvarez on 04-15-2025 Fecal occult blood Negative Negative [facility] Interpretation and review of laboratory results Normal [facility] MAGNESIUMon 04-15-2025 Magnesium [Mass/Vol] 1.8 mg/dL Normal 1.6-2.6 [facility] Comment on above: Result Comment: YARELI R COMMENTS:Higher values can be expected in females during menses. Performed By: #### L [id number], [id number] ####Mammal Keeper: UNA ARCE ([phone])[facility]Angel [facility] ([facility])[address] [place] [address] MANUAL DIFFERENTIAL (CELLAVI BANDAR)on 04-15-2025 ANISOCYTOSIS PRESENCE IN BLOOD BY LIGHT MICROSCOPY Moderate Abnormal (none) [facility] Comment on above: Performed By: #### L [id number], [id number] ####Mammal Keeper: UNA ARCE ([phone])[facility]ITAL[facility] (SBAB)[address] BAND NEUTROPHILS TOTAL PER COUNTED LEUKOCYTES BY MANUAL COUNT Normal [facility] Comment on above: Performed By: #### L [id number], [id number] ####Mammal Keeper: UNA ARCE ([phone])[facility]ITALAngel [facility]PITALMarisol (SBHLAB)[address] BASOPHILS (10*3/UL) IN BLOOD-CELLAVISION 0.2 10*3/uL Normal 0.0-0.2 [facility] Comment on above: Performed By: #### L [id number], [id number] ####Mammal Keeper: UNA ARCE ([phone])[facility] (SBHLAB)[address] BASOPHILS TOTAL PER COUNTED LEUKOCYTES BY MANUAL COUNT 2 Normal [facility] Comment on above: Performed By: #### L [id number], [id number] ####Mammal Keeper: UNA ARCE ([phone])[facility] [place] (SBHLAB)[address] [place] [address] [place] BASOPHILS/100 LEUKOCYTES IN BLOOD-CELLAVISION 2 % Normal 0-2 [facility] Comment on above: Performed By: #### L [id number], [id number] ####Mammal Keeper: UNA ARCE ([phone])[facility] [place] (SBHLAB)[address] [place] [address] [place] BLASTS TOTAL PER COUNTED LEUKOCYTES BY MANUAL COUNT Normal [facility] Comment on above: Performed By: #### L [id number], [id number] ####Mammal Keeper: UNA STAUFFERMELANIE ([phone])[facility] [place] (SBHLAB)[address] [place] [address] [place] EOSINOPHILS (10*3/UL) IN BLOOD-CELLAVISION 0.1 10*3/uL Normal 0.0-0.5 [facility] Comment on above: Performed By: #### L [id number], [id number] ####Mammal Keeper: UNA ARCE ([phone])[facility] [place] (SBHLAB)[address] [place] [address] [place] EOSINOPHILS TOTAL PER COUNTED LEUKOCYTES BY MANUAL COUNT 1 Normal 0-1 [facility] Comment on above: Performed By: #### L [id number], [id number] ####Mammal Keeper: UNA ARCE ([phone])[facility] [place] (SBHLAB)[address] [place] [address] [place] EOSINOPHILS/100 LEUKOCYTES IN BLOOD-CELLAVISION 1 % Normal 0-6 [facility] Comment on above: Performed By: #### L [id number], [id number] ####Mammal Keeper: UNA ARCE ([phone])[facility] [place] (SBHLAB)[address] [place] [address] [place] HYPOCHROMIA (PRESENCE) IN BLOOD BY LIGHT MICROSCOPY Moderate Abnormal (none) [facility] Comment on above: Performed By: #### L [id number], [id number] ####Mammal Keeper: UNA ARCE ([phone])[facility] [place] (SBHLAB)[address] [place] [address] [place] LYMPHOCYTES (10*3/UL) IN BLOOD-CELLAVISION 1.2 10*3/uL Normal 1.0-4.3 [facility] Comment on above: Performed By: #### L [id number], [id number] ####Mammal Keeper: UNA ARCE ([phone])[facility] [place] (SBHLAB)[address] LYMPHOCYTES TOTAL PER COUNTED LEUKOCYTES BY MANUAL COUNT 10 Normal [facility] Comment on above: Performed By: #### L [id number], [id number] ####Mammal Keeper: UNA ARCE ([phone])[facility] [place] (SBHLAB)[address] [place] [address] [place] LYMPHOCYTES/100 LEUKOCYTES IN BLOOD-CELLAVISION 10 % Low 15-45 [facility] Comment on above: Performed By: #### L [id number], [id number] ####Mammal Keeper: UNA ARCE ([phone])[facility] [place] (SBHLAB)[address] [place] [address] [place] METAMYELOCYTES TOTAL PER COUNTED LEUKOCYTES BY MANUAL COUNT Normal [facility] Comment on above: Performed By: #### L [id number], [id number] ####Mammal Keeper: UNA ARCE ([phone])[facility] [place] (SBHLAB)[address] [place] [address] [place] MONOCYTES (10*3/UL) IN BLOOD-CELLAVISION 1.6 10*3/uL High 0.0-0.9 [facility] Comment on above: Performed By: #### L [id number], [id number] ####Mammal Keeper: UNA ARCE ([phone])[facility] [place] (SBHLAB)[address] [place] [address] [place] MONOCYTES TOTAL PER COUNTED LEUKOCYTES BY MANUAL COUNT 13 Normal [facility] Comment on above: Performed By: #### L [id number], [id number] ####Mammal Keeper: UNA STAUFFERMELANIE ([phone])[facility] [place] (SBHLAB)[address] [place] [address] [place] MONOCYTES/100 LEUKOCYTES IN BLOOD-LUCIANA 13 % Normal - [facility] Comment on above: Performed By: #### L [id number], [id number] ####Mammal Keeper: UNA STAUFFERMELANIE ([phone])[facility] [place] (SBHLAB)[address] [place] [address] [place] MYELOCYTES COUNTED BY MANUAL COUNT Comment on above: Performed By: #### L [id number], [id number] ####Mammal Keeper: UNA STAUFFERMELANIE ([phone])[facility] [place] (SBHLAB)[address] [place] [address] [place] NEUTROPHILS TOTAL PER COUNTED LEUKOCYTES BY MANUAL COUNT 77 Normal [facility] Comment on above: Performed By: #### L [id number], [id number] ####Mammal Keeper: UNA ARCE ([phone])[facility] [place] (SBHLAB)[address] [place] [address] [place] POIKILOCYTOSIS (PRESENCE) IN BLOOD BY LIGHT MICROSCOPY Slight Abnormal (none) [facility] Comment on above: Performed By: #### L [id number], [id number] ####Mammal Keeper: UNA ARCE ([phone])[facility] [place] (SBHLAB)[address] [place] [address] [place] PROMYELOCYTES TOTAL PER COUNTED LEUKOCYTES BY MANUAL COUNT Comment on above: Performed By: #### L [id number], [id number] ####Mammal Keeper: UNA ARCE ([phone])[facility] [place] (SBHLAB)[address] [place] [address] [place] RBC MORPHOLOGY IN BLOOD abnormal Normal [facility] Comment on above: Performed By: #### L [id number], [id number] ####Mammal Keeper: UNA ARCE ([id number])[facility]ITALA [facility] (SBHLAB)[address] SEGMENTED NEUTROPHILS (10*3/UL) IN BLOOD-CELLAVISION 9.3 10*3/uL High 1.8-7.5 [facility] Comment on above: Performed By: #### L [id number], [id number] ####Mammal Keeper: UNA ARCE ([phone])[facility]A [facility]BGUADALU[facility] HOSPITALN (SBHLAB)[address] SEGMENTED NEUTROPHILS/100 LEUKOCYTES-CE 75 % Normal 38-82 [facility] Comment on above: Performed By: #### L [id number], [id number] ####Mammal Keeper: UNA ARCE ([phone])[facility] (SBHLAB)[address] STOMATOCYTES IN BLOOD BY LIGHT MICROSCOPY Slight Abnormal (none) [facility] Comment on above: Performed By: #### L [id number], [id number] ####Mammal Keeper: UNA ARCE ([id number])[facility] (SBHLAB)[address] UNCLASSIFIED CELLS TOTAL PER COUNTED LEUKOCYTES BY MANUAL COUNT Normal [facility] Comment on above: Performed By: #### L [id number], [id number] ####Mammal Keeper: UNA ARCE ([phone])[facility] ([facility])[address] VARIANT LYMPHOCYTES TOTAL PER COUNTED LEUKOCYTES BY MANUAL COUNT Normal [facility] Comment on above: Performed By: #### L [id number], [id number] ####Mammal Keeper: UNA ARCE ([id number])[facility] (SBHLAB)[address] [place] [address] [place] Magnesium [Mass/Vol]on 04-15 Interpretation and review of laboratory results Normal [facility] No Panel Informationon 04-15 Basophils Manual 2 [facility] alth Eosinophils Manual 1 0 - 1 [facility] Interpretation and review of laboratory results Abnormal [facility] Lymphocytes Manual 10 [facility] Monocytes Manual 13 [facility] Neutrophils Manual 77 [facility] OCCULT BLOOD, STOOLon 2024 OCCULT BLOOD, STOOL FECAL OCCULT, STOOL Reference Negative Negative ORDER COMMENTS: Methodology: Immunoassay Normal [facility] Comment on above: Performed By: #### L [id number] ####Mammal Keeper: UNA ARCE ([phone])[facility] [place] [address] Progress Noteon 04-15-2025 Progress Note Normal [facility] Progress Note Normal [facility] Progress Note Normal [facility] Progress Note Normal [facility] XR Chest Single viewon 04-15 [facility] Radiology Study observation (narrative) Lynette Balderrama alth [id number] 04-14-2025 [id number] Normal [facility] Bacteria identified Anaer cx Nom (Unsp spec)on 04-14-2025 Interpretation and review of laboratory results Normal [facility] CBC W Auto Differential pane l (Bld)on 04-14-2025 Erythrocyte distribution width (RBC) [Ratio] 25.4 % High 11.5 - 15.0 % [facility] Hematocrit (Bld) [Volume fraction] 27.3 % Low 40.0 - 52.0 % [facility] Hemoglobin (Bld) [Mass/Vol] 7.6 g/dL Low 13.0 - 18.0 g/dL [facility] MCH (RBC) [Entitic mass] 23.2 pg Low 26. 0 - 34.0 pg [facility] MCHC (RBC) [Mass/Vol] 27.8 % Low 30.5 - 36.0 % [facility] MCV (RBC) [Entitic vol] 83.5 fL 77.0 - 99.0 fL [facility] Platelet mean volume (Bld) [Entitic vol] 8.9 fL Low 9.0 - 12.7 fL [facility] Platelets (Bld) [#/Vol] 293 10*3/uL 140 - 440 10*3/uL [facility] RBC (Bld) [#/Vol] 3.27 10*6/uL Low 4.40 - 5.9 0 10*6/uL [facility] WBC (Bld) [#/Vol] 12.3 10*3/uL High 3.6 - 10.7 10*3/uL [facility] CBC WITH AUTO DIFFERENTIALon 04-14-2025 Erythrocyte distribution width (RBC) [Ratio] 25.4 % High 11.5-15.0 [facility] Comment on above: Performed By: #### L [id number], [id number] ####Mammal Keeper: UNA ARCE ([phone])[facility] (SBAB)[address] [place] [address] Hematocrit (Bld) [Volume fraction] 27.3 % Low 40.0-52.0 [facility] Comment on above: Performed By: #### L [id number], [id number] ####Mammal Keeper: UNA ARCE ([phone])[facility] (SBHLAB)[address] [place] [address] Hemoglobin (Bld) [Mass/Vol] 7.6 g/dL Low 13.0-18.0 [facility] Comment on above: Performed By: #### L [id number], [id number] ####Mammal Keeper: UNA ARCE ([phone])[facility] (SBHLAB)[address] [place] [address] MCH (RBC) [Entitic mass] 23.2 pg Low 26.0-34.0 [facility] Comment on above: Performed By: #### L [id number], [id number] ####Mammal Keeper: UNA ARCE ([id number])[facility] (SBHLAB)[address] [place] [address] MCHC 27.8 % Low 30.5-36.0 [facility] Comment on above: Performed By: #### L [id number], [id number] ####Mammal Keeper: UNA ARCE ([id number])[facility] (SBAB)[address] MCV (RBC) [Entitic vol] 83.5 fL Normal 77.0-99.0 [facility] Comment on above: Performed By: #### L [id number], [id number] ####Mammal Keeper: UNA ARCE ([id number])[facility] (SBHLAB)[address] Platelet mean volume (Bld) [Entitic vol] 8.9 fL Low 9.0-12.7 [facility] Comment on above: Performed By: #### L [id number], [id number] ####Mammal Keeper: UNA ARCE ([phone])[facility]ITALAngel [facility] (SBHLAB)[address] Platelets (Bld) [#/Vol] 293 10*3/uL Normal 140-440 [facility] Comment on above: Performed By: #### L [id number], [id number] ####Mammal Keeper: UNA ARCE ([phone])[facility]ITALAngel [facility] (SBHLAB)[address] RBC (Bld) [#/Vol] 3.27 10*6/uL Low 4.40-5.90 [facility] Comment on above: Performed By: #### L [id number], [id number] ####Mammal Keeper: UNA ARCE ([id number])[facility] (SBHLAB)[address] WBC (Bld) [#/Vol] 12.3 10*3/uL High 3.6-10.7 [facility] Comment on above: Performed By: #### L [id number], [id number] ####Mammal Keeper: UNA ARCE ([id number])[facility] (SBHLAB)[address] COMPREHENSIVE METABOLIC PANE Anant 04-14-2025 Albumin [Mass/Vol] 2.1 g/dL Low 3.4-4.8 [facility] Comment on above: Performed By: #### L [id number], LAB17 ####Mammal Keeper: UNA ARCE ([id number])[facility] MCKAYN (SBHLAB)[address] ALP [Catalytic activity/Vol] 47 U/L Normal 40-150 [facility] Comment on above: Performed By: #### L AB103, LAB17 ####Mammal Keeper: UNA ARCE ([phone])[facility] [place] (SBHLAB)[address] ALT [Catalytic activity/Vol] U/L Normal <40 [facility] Comment on above: Performed By: #### L AB103, LAB17 ####Mammal Keeper: UNA ARCE ([phone])[facility]AL[facility]ITAL[facility] (SBHLAB)[address] Anion gap [Moles/Vol] 9 mmol/L Normal 3-13 [facility] Comment on above: Performed By: #### L AB103, LAB17 ####Mammal Keeper: UNA ARCE ([id number])[facility] (SBHLAB)[address] AST [Catalytic activity/Vol] 19 U/L Normal <34 [facility] Comment on above: Performed By: #### L AB103, LAB17 ####Mammal Keeper: UNA ARCE ([id number])[facility] [place] (SBHLAB)[address] Bilirubin [Mass/Vol] 0.6 mg/dL Normal <1.2 [facility] Comment on above: Performed By: #### L AB103, LAB17 ####Mammal Keeper: UNA ARCE ([phone])[facility] (SBHLAB)[address] Calcium [Mass/Vol] 8.1 mg/dL Low 8.8-10.0 [facility] Comment on above: Performed By: #### L AB103, LAB17 ####Mammal Keeper: UNA ARCE ([phone])[facility] BARBCHRISTIN[facility] (SBHLAB)[address] Chloride [Moles/Vol] 92 mmol/L Low 98-107 [facility] Comment on above: Performed By: #### L AB103, LAB17 ####Mammal Keeper: UNA ARCE ([id number])[facility] [place] (SBHLAB)[address] CO2 [Moles/Vol] 39 mmol/L High 23-31 [facility] Comment on above: Performed By: #### L AB103, LAB17 ####Mammal Keeper: UNA RACE ([phone])[facility]ITALAngel [place] (SBHLAB)[address] Creatinine [Mass/Vol] 1.43 mg/dL High 0.72-1.25 [facility] Comment on above: Performed By: #### L AB103, LAB17 ####Mammal Keeper: UNA ARCE ([phone])[facility] [place] (SBHLAB)[address] GLOMERULAR FILTRATION RATE ML/MIN/1.73 SQ M.PREDICTED 46.8 mL/min/1.73m*2 Low >60.0 [facility] Comment on above: Result Comment: Calc ulation based on the Chronic Kidney Disease Epidemiology Collaboration (CKD-EPI) equation refit without adjustment for race Performed By: #### L AB103, LAB17 ####Mammal Keeper: UNA ARCE ([phone])[facility]ITAL[facility] [place] (SBHLAB)[address] [place] [address] [place] Glucose [Mass/Vol] 97 mg/dL Normal 82-115 [facility] Comment on above: Performed By: #### L AB103, LAB17 ####Mammal Keeper: UNA ARCE ([phone])[facility] [place] (SBHLAB)[address] [place] [address] [place] Potassium [Moles/Vol] 3.8 mmol/L Normal 3.5-5.1 [facility] Comment on above: Result Comment: [facility] potassium values may be up to 0.5 mmol/L lower than serum values. Performed By: #### L AB103, LAB17 ####Mammal Keeper: UNA ARCE ([id number])[facility] (SBHLAB)[address] Protein [Mass/Vol] 5.7 g/dL Low 6.4-8.3 [facility] Comment on above: Performed By: #### L AB103, LAB17 ####Mammal Keeper: UNA ARCE ([phone])[facility] (SBHLAB)[address] Sodium [Moles/Vol] 140 mmol/L Normal 136-145 [facility] Comment on above: Performed By: #### L AB103, LAB17 ####Mammal Keeper: UNA ARCE ([phone])[facility] ([facility])[address] Urea nitrogen [Mass/Vol] 39 mg/dL High 9-23 [facility] Comment on above: Performed By: #### L AB103, LAB17 ####Mammal Keeper: UNA STAUFFERMELANIE ([phone])[facility] (SBHLAB)[address] Comprehensive metabolic 1998 panelon 04-14-2025 Albumin [Mass/Vol] 2.1 g/dL Low 3.4 - 4.8 g/dL [facility] ALP [Catalytic activity/Vol] 47 U/L 40 - 150 U/L [facility] ALT [Catalytic activity/Vol] U/L NINF - 40 U/L [facility] Anion gap [Moles/Vol] 9 mmol/L 3 - 13 mmol/L [facility] AST [Catalytic activity/Vol] 19 U/L NINF - 34 U/L [facility] Bilirubin [Mass/Vol] 0.6 mg/dL NINF - 1.2 mg/dL [facility] Calcium [Mass/Vol] 8.1 mg/dL Low 8.8 - 10. 0 mg/dL [facility] Chloride [Moles/Vol] 92 mmol/L Low 98 - 10 7 mmol/L [facility] CO2 [Moles/Vol] 39 mmol/L High 23 - 31 mmol/L [facility] Creatinine [Mass/Vol] 1.43 mg/dL High 0.72 - 1.25 mg/dL [facility] GFR/1.73 sq M.predicted (S/P/Bld) [Vol rate/Area] 46.8 mL/min Low - PINF [facility] Glucose [Mass/Vol] 97 mg/dL 82 - 115 mg/dL [facility] Interpretation and review of laboratory results Abnormal [facility] Potassium [Moles/Vol] 3.8 mmol/L 3.5 - 5.1 mmol/L [facility] Protein [Mass/Vol] 5.7 g/dL Low 6.4 - 8.3 g/dL [facility] Sodium [Moles/Vol] 140 mmol/L 136 - 145 mmol/L [facility] Urea nitrogen [Mass/Vol] 39 mg/dL High 9 - 23 mg/d L [facility] Consulton 04-14-2025 Consult Normal [facility] ECG 12-LEADon 04-14-2025 ECG 12-LEAD IMPRESSION: Sinus arrhythmia LEFT ANTERIOR FASCICULAR BLOCK MULTIPLE ATRIAL PREMATURE COMPLEXES Compared to ECG 04/05/2025 15:59:31 No significant changes Electronically Signed On 04-14-2025 07:12:58 EDT by Ronal Maurice Normal [facility] Laboratory - Chemistry and C hemistry - challengeon 04-14-2025 Magnesium [Mass/Vol] 1.9 mg/dL 1.6 - 2 .6 mg/dL [facility] Laboratory - Hematology and Cell countson 04-14-2025 Anisocytosis Ql (Bld) Slight Abnormal (none) [facility] Basophils (Bld) [#/Vol] 0.1 10*3/uL 0.0 - 0.2 10*3/uL [facility] Basophils/100 WBC (Bld) 1 % 0 - 2 % [facility] Eosinophils (Bld) [#/Vol] 0.4 10*3/uL 0.0 - 0.5 10*3/uL [facility] Eosinophils/100 WBC (Bld) 3 % 0 - 6 % [facility] Hypochromia Ql (Bld) Moderate Abnormal (none) [facility] Lymphocytes (Bld) [#/Vol] 0.9 10*3/uL Low 1.0 - 4.3 10*3/uL [facility] Lymphocytes/100 WBC (Bld) 7 % Low 15 - 45 % [facility] Monocytes (Bld) [#/Vol] 1.8 10*3/uL High 0.0 - 0.9 10*3/uL [facility] Monocytes/100 WBC (Bld) 15 % High 5 - 13 % [facility] Neutrophils (Bld) [#/Vol] 9.1 10*3/uL High 1.8 - 7.5 10*3/uL [facility] Poikilocytosis LM Ql (Bld) Slight Abnormal (none) [facility] RBC morphology finding Nom (Bld) abnormal [facility] Segmented neutrophils/100 WBC (Bld) 74 % 38 - 82 % [facility] Stomatocytes LM Ql (Bld) Moderate Abnormal (none) [facility] Variant lymphocytes (Bld) [#/Vol] 0.1 10*3/uL High NINF - 0.0 10*3/uL [facility] Variant lymphocytes/100 WBC (Bld) 1 % High NINF - 0 % [facility] Laboratory - Microbiology an d Antimicrobial susceptibilityon 04-14-2025 Bacteria identified Anaer cx Nom (Unsp spec) No growth at 5 days [facility] MAGNESIUMon 04-14-2025 Magnesium [Mass/Vol] 1.9 mg/dL Normal 1.6-2.6 [facility] Comment on above: Result Comment: YARELI [place] COMMENTS:Higher values can be expected in females during menses. Performed By: #### L AB103, LAB17 ####Mammal Keeper: UNA ARCE ([phone])[facility] (SBAB)[address] MANUAL DIFFERENTIAL (CELLAVI BANDAR)on 04-14-2025 ANISOCYTOSIS PRESENCE IN BLOOD BY LIGHT MICROSCOPY Slight Abnormal (none) [facility] Comment on above: Performed By: #### L [id number], [id number] ####Mammal Keeper: UNA ARCE ([id number])[facility] [place] (SBHLAB)[address] [place] [address] [place] BAND NEUTROPHILS TOTAL PER COUNTED LEUKOCYTES BY MANUAL COUNT [facility] Comment on above: Performed By: #### L [id number], [id number] ####Mammal Keeper: UNA ARCE ([id number])[facility] [place] (SBHLAB)[address] [place] [address] [place] BASOPHILS (10*3/UL) IN BLOOD-CELLAVISION 0.1 10*3/uL Normal 0.0-0.2 [facility] Comment on above: Performed By: #### L [id number], [id number] ####Mammal Keeper: UNA ARCE ([id number])[facility] [place] (SBHLAB)[address] [place] [address] [place] BASOPHILS TOTAL PER COUNTED LEUKOCYTES BY MANUAL COUNT 1 Comment on above: Performed By: #### L [id number], [id number] ####Mammal Keeper: UNA ARCE ([id number])[facility] [place] (SBHLAB)[address] [place] [address] [place] BASOPHILS/100 LEUKOCYTES IN BLOOD-CELLAVISION 1 % Normal 0-2 [facility] Comment on above: Performed By: #### L [id number], [id number] ####Mammal Keeper: UNA ARCE ([phone])[facility] [place] (SBHLAB)[address] [place] [address] [place] BLASTS TOTAL PER COUNTED LEUKOCYTES BY MANUAL COUNT Comment on above: Performed By: #### L [id number], [id number] ####Mammal Keeper: UNA ARCE ([id number])[facility] [place] (SBHLAB)[address] [place] [address] [place] EOSINOPHILS (10*3/UL) IN BLOOD-CELLAVISION 0.4 10*3/uL Normal 0.0-0.5 [facility] Comment on above: Performed By: #### L [id number], [id number] ####Mammal Keeper: UNA ARCE ([id number])[facility] [place] (SBHLAB)[address] [place] [address] [place] EOSINOPHILS TOTAL PER COUNTED LEUKOCYTES BY MANUAL COUNT 3 High 0-1 [facility] Comment on above: Performed By: #### L [id number], [id number] ####Mammal Keeper: UNA ARCE ([id number])[facility] [place] (SBHLAB)[address] [place] [address] [place] EOSINOPHILS/100 LEUKOCYTES IN BLOOD-CELLAVISION 3 % Normal 0-6 [facility] Comment on above: Performed By: #### L [id number], [id number] ####Mammal Keeper: UNA ARCE ([id number])[facility] [place] ([facility])[address] [place] [address] [place] HYPOCHROMIA (PRESENCE) IN BLOOD BY LIGHT MICROSCOPY Moderate Abnormal (none) [facility] Comment on above: Performed By: #### L [id number], [id number] ####Mammal Keeper: UNA ARCE ([id number])[facility] [place] [facility] [place] [address] [place] LYMPHOCYTE VARIANT/100 LEUKOCYTES IN BLOOD- CELLAVISION 1 % High <=0 [facility] Comment on above: Performed By: #### L [id number], [id number] ####Mammal Keeper: UNA ARCE ([phone])[facility] [place] [facility] [place] [address] [place] LYMPHOCYTES (10*3/UL) IN BLOOD-CELLAVISION 0.9 10*3/uL Low 1.0-4.3 [facility] Comment on above: Performed By: #### L [id number], [id number] ####Mammal Keeper: UNA ARCE ([id number])[facility] [place] [facility] [place] [address] [place] LYMPHOCYTES TOTAL PER COUNTED LEUKOCYTES BY MANUAL COUNT 7 Normal [facility] Comment on above: Performed By: #### L [id number], [id number] ####Mammal Keeper: UNA ARCE ([phone])[facility] ([facility])[address] [place] [address] [place] LYMPHOCYTES/100 LEUKOCYTES IN BLOOD-CELLAVISION 7 % Low 15-45 [facility] Comment on above: Performed By: #### L [id number], [id number] ####Mammal Keeper: UNA ARCE ([id number])[facility] ([facility])[address] [place] [address] [place] METAMYELOCYTES TOTAL PER COUNTED LEUKOCYTES BY MANUAL COUNT Normal [facility] Comment on above: Performed By: #### L [id number], [id number] ####Mammal Keeper: UNA ARCE ([phone])[facility] [place] [facility] [place] [address] [place] MONOCYTES (10*3/UL) IN BLOOD-CELLAVISION 1.8 10*3/uL High 0.0-0.9 [facility] Comment on above: Performed By: #### L [id number], [id number] ####Mammal Keeper: UNA ARCE ([id number])[facility] [place] [facility] [place] [address] [place] MONOCYTES TOTAL PER COUNTED LEUKOCYTES BY MANUAL COUNT 15 Normal [facility] Comment on above: Performed By: #### L [id number], [id number] ####Mammal Keeper: UNA ARCE ([phone])[facility] ([facility])[address] [place] [address] [place] MONOCYTES/100 LEUKOCYTES IN BLOOD-LUCIANA 15 % High 5-13 [facility] Comment on above: Performed By: #### L [id number], [id number] ####Mammal Keeper: UNA ARCE ([phone])[facility] ([facility])[address] [place] [address] [place] MYELOCYTES COUNTED BY MANUAL COUNT Comment on above: Performed By: #### L [id number], [id number] ####Mammal Keeper: UNA ARCE ([phone])[facility] ([facility])[address] [place] [address] [place] NEUTROPHILS TOTAL PER COUNTED LEUKOCYTES BY MANUAL COUNT 75 Normal [facility] Comment on above: Performed By: #### L [id number], [id number] ####Mammal Keeper: UNA ARCE ([phone])[facility] ([facility])[address] POIKILOCYTOSIS (PRESENCE) IN BLOOD BY LIGHT MICROSCOPY Slight Abnormal (none) [facility] Comment on above: Performed By: #### L [id number], [id number] ####Mammal Keeper: UNA MOHRCER ([phone])[facility] [place] ([facility])[address] PROMYELOCYTES TOTAL PER COUNTED LEUKOCYTES BY MANUAL COUNT Normal [facility] Comment on above: Performed By: #### L [id number], [id number] ####Mammal Keeper: UNA ARCE ([phone])[facility] ([facility])[address] [place] [address] [place] RBC MORPHOLOGY IN BLOOD abnormal Normal [facility] Comment on above: Performed By: #### L [id number], [id number] ####Mammal Keeper: UNA ARCE ([phone])[facility] [place] ([facility])[address] [place] [address] [place] SEGMENTED NEUTROPHILS (10*3/UL) IN BLOOD-CELLAVISION 9.1 10*3/uL High 1.8-7.5 [facility] Comment on above: Performed By: #### L [id number], [id number] ####Mammal Keeper: UNA ARCE ([phone])[facility] ([facility])[address] [place] [address] [place] SEGMENTED NEUTROPHILS/100 LEUKOCYTES-CE 74 % Normal 38-82 [facility] Comment on above: Performed By: #### L [id number], [id number] ####Mammal Keeper: UNA ARCE ([phone])[facility] [place] (SBHLAB)[address] [place] [address] [place] STOMATOCYTES IN BLOOD BY LIGHT MICROSCOPY Moderate Abnormal (none) [facility] Comment on above: Performed By: #### L [id number], [id number] ####Mammal Keeper: UNA ARCE ([phone])[facility] (SBHLAB)[address] [place] [address] [place] UNCLASSIFIED CELLS TOTAL PER COUNTED LEUKOCYTES BY MANUAL COUNT Normal [facility] Comment on above: Performed By: #### L [id number], [id number] ####Mammal Keeper: UNA ARCE ([phone])[facility] (SBHLAB)[address] VARIANT LYMPHOCYTES (10*3/UL) IN BLOOD-CELLAVISION 0.1 10*3/uL High <=0.0 [facility] Comment on above: Performed By: #### L [id number], [id number] ####Mammal Keeper: UNA ARCE ([phone])[facility] (SB[facility]AB)[address] VARIANT LYMPHOCYTES TOTAL PER COUNTED LEUKOCYTES BY MANUAL COUNT 1 Normal [facility] Comment on above: Performed By: #### L [id number], [id number] ####Mammal Keeper: UNA ARCE ([phone])[facility] (SBHLAB)[address] [place] [address] [place] Magnesium [Mass/Vol]on 04-14 Interpretation and review of laboratory results Normal [facility] No Panel Informationon 04-14 [facility] Radiology Study observation (narrative) [facility] ander Case Report [facility] Case Screening Location [facility], [address] [place] [address]; CLIA: [id number]; Joint Commission: HCO [id number]; CAP: [id number] [facility] Comment [id number] M BayorFmLOHfvGYdW6Qhft jnUDigDI1eQR3itVomhRU yeMGtZCSlRjZil4ows718 eGSfx3baDSHLQPeaPNVRY Ji9kOupW09hw9Z9YvsxD2 8qlDYqGPA1HEPxEGIlfJQ kQUNmFYT1NPFteMZyB6xi EBKvQX1rtbboIPvvWNjzX IEpkWW5WVFmwEMhT4XoJV UrETcbUTCszlm3HkXiEf6 vdGVyeTcyMFxwYXJkXHBs YWluXGZzMjAgUGxlYXNlI YIoOWZzk0CpW9dbjUQgKW QsYOMhv3CqEDF7uZ6zo3v 3UEQaAVCfuUSiHUaHFhG5 QMJsKJKlzABsDdo0NDG3r SAbETPnNKk7mR4sRSvfb2 3uj2IjKvhgXQF1 [facility] g4zvoHApHQWyaDToZmAg M DFpJLZfg5rtQYReuDVuKa EwMzNcZnRuYmpcdWMxXGR uUnQet7ayi722rIUvt9dm HURbQcW8gGOgNERsC91lS AAXX235CDVuADses1tmw6 AqWLOddDIcm2D0LWQICIg aPCZFSNw6fSglR27pw5T8 NxajR7hqABCnVHJgF7CmR L6jREIxGyf4WHV1ZEE5LU HwEBMzY1VrAY7rVEHvjPT gAVb4z3vqkPzlLXQvPBV4 k0wxTPabwyKnGV2ffy9av Uh0k7ykrdBhZNCzCEAsbP QAOGLhB0RhpCpaYd7qdYe 3jZcsHtlnKIO6Lnj4SG8i yw47kyr3zMyeVWAqucvsA aE6UEbvUPQyqnpyAZu6HQ buKQLtdOH9YWThwAXaG1A yQFOsLK7nljw2NZW6UJzq BDYaLfT3HKZdcZRkCULzg WbkMBhoy976ACV7SoFmIQ 4zG9Jtv6Y3tG0wyHNiBJS rmZUwLpRiQAJghh3obFWj JQjum5HwXRS7stI6dMHgu COtHHLpUA96Ehjcc6PoDm umDBI4MVXbgcFdm4Wuh3s fEgXtdnBqV1kzU8JpWWBw EQTgHVKvLcHikzQbv2Ejh 0DqkCQmkIg2h0fjEQPiXC GiuFhxz2reWGG0MGFcT2Q 6lRTuu5aoMEgyRQGpaNA4 yrL3GKUnoHAdR3CfiJ2oY YTfJK6cfww8n2hxODI9KD pzDFXgCuJ9bgL1OVKrtOT gLZGunFoxBQmeu400TIG6 NyZbIIFcc0GcV4EogDaiN 45ceNszE60aRPMzbRbifL 0tsYvtoD5eGzCzVmOpOJk xbFxwbGFpblxmMVxmczE2 LEtujmblZSUlGOqoT6ywM uMuJKMlePboLOnpe8GpLY ZiMKFvVGCrYGagG2fgnH7 yjpnkPHtuWVDmhPqtr6iq OeJfjFG2ZW3xxyBoCQPfq VvjfoC6imDswHuomH4afI 8taYwsaE7roINnmPM3vtg sIGluIHNpdHUgaHlicmlk fHvspAsgjzhjiM9cSCW9u IKeTUP0vRAdZWLwLPJoUB RncA05pu9ajUVawcIlM5O gN0IvjIRfoWuiZkcqpIIe aGExOv0uvDKnYE9hRDUwi NRzC1BiYB7fVZDzvdocMB IgVGhlIHVzZSBvZiBvbmU vt9TkzY9rHXPeMBAoRT31 ylUdqiR2uXFlLQUcarYdc GVzdHMgaXMgcmVndWxhdG IvRCRmBYQzHVXuKVw0iYF qt6ToE2qwbHOearBnE0Jg wECuJPBVCM5jGDidk5Kui QBnbCLke1XzLQDbSRGbuK 3mEYEnNZ2qUSQeUEbjNOZ mxfApja0grkGkKPOxTGTh K9JmbidxzFwcruIhBKFvf k9mzbCrYDA1OBItNIPavX bloOBhcCOoNKAgvsY1o3U pFSIms0QfL2SfaCLnXNUl iONfIEI4o7UviS9tWZjnu LJqTSGmMC8roXJnLWZdEB NsZWFyZWQgYnkgdGhlIFV DJESsw3HeWL9nFUEnxLao SQWccX3if4JhQRNfz18hU EZEQSkuIFRoZSBGREEgaG FzIGRldGVybWluZWQgdGh obKFyxYOoTTHzPAGhIW9g BJJpyuRnoMGie2TlqDRfp gRne0LxfxGkRVXmAWX5Zg BccGFyXHBhciBBbGwgaW1 vhA3yd5VmbN4mEVomirYc yPVnRl6jhJObJG4aJFKyf mFmZmluIGVtYmVkZGVkIH Pbm2Q3PM1xEEVruq8eyyq ulPNrnT9xlYKiqcPvFN3u QH4oH2A7kKLdOCJenqLqb 0meTAg9kAFcMAVtsIShmA HdYudiLPA7RWUiRLW2giC buhYiFOOaqBtyeGB4oJAw TQWjPRSrHXFpAE38B5Yjx 3DyJ8qpAW44MTPgEHIsDK KgotIxm6zgIBYug3wlUIO giUTyK2FrSKCgrOQjxqqj LpUiAPH7MPJyIOU7kAVcB HIwI6EdaQJqxRMibU19PZ 2wzNL2IQ9tXFH6TXdblY6 zAuXGsH59pk7csJR1n8Yu ZC9jZ3FhYLWsx1M7oeSkR XHjUQ5kcZHuSZAiENEvtE lkYXRlZCBvbiBkZWNhbGN kXgqmHVN8pEWxqSLlTlAG LMU7mRGmPONtf7EbUANiZ JDrswHgesKsULVtHCW0pY ViSFTglOUrq47nP6i2BM5 muFzqKPTnyBZvYOWdl1Hl mQMavIl3rAVbAyAmAMdkC OTmYXngeGg6eTV0SM3oMY KgK5SiP9ztiZUmMXLpDCM owCJdyh4rkIAtoN== [facility] Gross Description g8yffBDsCDRyuRKPNNTk M PCzXH7ugImwqNt5pPlgXK OlbnP3mZUnOUzca2dsTLN 3p7uuezKIDbjdSRTxST9u UCbeYZBwAE8hLkBtDIHyV mYxXHBhcGVydzEyMjQwXH FnxSVyqFO3ZNKhXO1gldx mINmaQFndKAHljwZ3YYIn nFTaK4OoYNVoTZ7itfpjB DK9XAYZPpnxDt0mpWRpvX ANCntcZjFcZmNoYXJzZXQ gTPGht2tvyaNAzdwdnYo3 UCb9HFJoLKXvjPLzm4B4R Ecxk7dju7TiB6Yec5OyTZ v6mA5UEzkdQ61ag9E0Xlq 1LPWtOXl1MReaWYMeZJKt Fsk3BRt0J5nkTEDeJSakO ZPgJLrkeSHqFAp8CFndj7 PaeTCcAUy4FKrtVBJeP9N fT0IoRGvmDwJvJBrlACZp PGRsSAndPKUeB8HAANNdV aT2ExK8QEGhXCx5KMtqBv RNXSY7UXc3SwY5IIi1DTU eSU4cMZpmiSCuJEtrAsza PUcjS175TTidTEVmL0RgR 3QgXFxzZyBcXGlkIDUxMD JeIRrhYYOkN0WIUGRjXcZ 1VfV9LUZdYLa1HDdbB5FR LYMmQZW2CBD6XaYjYcF1R Rm3IQYGZg2rHAS3RUP9ID yfMUA1SHFtVXgpkwnoMSw 0IDIgXFxzcyAzIFxcZmwg RTclC36ohXKaNQNROruub GFpblxlcGljTmVzdERvYz VoSZwrbHBvhSTdSL1HWTe 0cmNoXGNmMVxmczIwIEEg QEYDiPH6cxXqPETelze8g SsjPqfmvYO8TTApJOKxYI bzURHaUAe4MZZubXhlMUZ qm3PsU6G4DXMqUJtpe2xs FXVqCXonb5GzXHmZEENHJ R2QRC4seTC1TWwFOKGSU2 gVjSJwGXKbF6jebAS1a6n txOZaz5p4XMtyQYJ5hBOe g3VvuTcyOkhjbMM9MOwjW tjffD0cwZFFEBKAQzbORc lzdbDeOM6SLIPSUR9GpMR nWWXdE1apbTW5l4samXYn n6e0WCotLHW5dMrfsWFbh lxsdHJjaFxmczIwICBccH DgsCExmRxiFyahoQN2LKk pPfzqqR6ayXOINTUFUybG ByykeeZuBS5JZXJAMeNPM N30YFT6DDE1mPO2Cw60AA GqJJAcrZAnJNahZ629u9O maupfk6cwuSFmIQhoBzqv zNIzeyT1BIvWDNDHHQkCA nIiSF6mQSmWJ9DKIhM3BD L7NFG6sTE6Ks90KHTgTXH uyCPnPPzyG637SJRcJSai BYj0ahHxBFOrSzLmQSGje FjsNZEeH4BfksJvKIegyi 37JOP7y6jqpIYgKHrvAkg zqDNtziS2RKdXGXOMVSyS CcKbXS0zYYjVW8OFUDkKX xueTZcfSoE5G8nopEcfCo zqleFffYMzPhNPtV6jnuL guRqzXpnneYL3GUrkBkge uN5waCVXGCCAFbpWLqqlm sWuHR9AKBKQLT3JbQXfAB TwZPxczCQ5f0rkkETvm2y 8PPioPTH0yTzdkHBuymiv uIFneXkcvzWzGA6pTVOwb iANClxiXGNmMiBNYXRlcm qixKCiMEWtxCOhPIA0WXP sQKSlNUTeFIDgtI3CgmEg IGFuZCAxIENlbGwgQmxvY 3agzdvfvLQtTY0IPOOjvo ANClxmMlxmczIyXHBhciA ZMiitWKZbWOMiqIWPh8Ch RTWRYbm4ZT8LHPXtGBPss ZJNZBW8MB8bNOfeWUDoX6 NlU5WybiW8r7nmjZyec1F elBJfZR2tbCGcQE8XMERj tmEoFNsfjHxjdO5gIXm3 [facility] Pathologist Interpretation Location [facility], [address] [place] [id number]; CLIA: [id number]; Joint Commission: HCO 9582; CAP: [id number] [facility] Pathology report final diagnosis Narrative k6sdjHFjTPDezXXaRSSdZ BufzlEhMYFygZVpN2Zqtg ifHApfFV4lUM0ukGvfuYZ fhBImMGPcCfMqj1rhi360 nPAwe8diQJBTUFosPJYFT Pm0sPtgY29fw6T4NmajY1 vwUWC3KEwnsmIsefm7HRU hzYA5NUh8WCKgtWDqloSx OtUfPYVvbTSxnQY7TEHlD G5bczenIVqwOAjfWHQvsz V9AJRbhNJxY3YxMCLxUX6 qepnvUAA7FPbmFMEcVOL2 RcBtOOVja3Socth8WtOhe GFyZFxwbGFpblxmczIwXG NmMSBBICAtIFBsZXVyYWw gP5N5jAP6UAPZmWsbpHIs TUJgPAzfYll6yNYcLKL8g Z2qb4c1JqaxRyEoTPQssN UhNL9GLT4DUKeTBlICBEM DRUxMUyBJREVOVElGSUVE NezaBMIhIoKCT7BGUxBdR 1ODYPVSZBEPH6QONlgoFU BoOP7jwENvqKS1bD7yNLT yZXNlbnQuIFxwYXJ9 [facility] [place] CV EPIPHANY [facility] Atypical Lymphocytes Manual 1 [facility] Basophils Manual 1 [facility] Eosinophils Manual 3 High 0 - 1 [facility] Interpretation and review of laboratory results Abnormal [facility] Lymphocytes Manual 7 [facility] Monocytes Manual 15 [facility] Neutrophils Manual 75 [facility] No Panel InformationOrdered By: Marianna Francois on 04-14-2025 [facility] [place] Work Phone: No Panel InformationOrdered By: Danyel Platt on 04-14-2025 Case Report [facility] [place] Work Phone: Case Screening Location [facility], [address] [place] [phone]; CLIA: [id number]; Joint Commission: HCO [id number]; CAP: [id number] [facility] [place] Work Phone: Comment c2dobTHzKIBxyPLpHKMp M LrbhzMtHUVplRJlV1Llbj fpIPtaBB1wZF2glEpnxTD crREwZQRbXgSzy4vry936 dFBhj6ynMQSHNBgpJKGPS Ei5uExmE06ns7F3MizlL3 6xfDNsHYV2AXOqQOIlqEG sOSVaYUY8EUKgxPGlB2ws KCMeCS4jhdurNSwdHCmcB UAxgIO3CTThnBLxU0CvNS QqPBwcDLYdwnc6OoVsFj2 vdGVyeTcyMFxwYXJkXHBs PVsxXKHxUfHrTH8fhI0hv QneeA0jaBNgdIG3qsqwDS sppOkfY56mtYTblLG9RCG ZOfSrcpIgW4CcuiG2yR7r biBoaWdobGlnaHQgbWVzb 5YyBUalFYipE9LmoPMiVJ BCRVIgRVAgNCwgVFRGLTE aQMBRNGqjGS9eHKEYOhGa FRUlSN9mC4O1xQVgBlWmE 0CmHcHrgPnyaZaoV0f8ad NxtC9ivm93tyWrTLWxz7Y cUXdwnn2ogSJazB== [facility] Work Phone: Disclaimer i3mogGNkUHPdyXTaYcKo M ZCjDXVqq1wdCXUvbYNyXm EwMzNcZnRuYmpcdWMxXGR iHoJuq9dkq540wRXlu1ob NVQySjT7oXJjCZAjR82wW VWEB791RXFsERrni6pqd5 YfHGIsqPRlv7Q8NTTQYMm lQPIOWEn9kElsW37dm9S4 IzfrG4seWOErMUEiP4SmY A6kAYPeMjk1GLT9BJD8PB FiQGXxA6GiHR8wKITwjHF fCMi1t2ngfKguURIkSXV6 f4faLMcmptHpTN2izo3xp Am4k0vsnnSaTRCkRFAjcD DUGXOeM4ZdpYzxQe1dhAq 6iBnnNnkoPSU9Yqg8BN7y gr04pui2qMsqOQLhlnydP bF6JKrmIQQaycwbBRd1OB rxEJAmlAW0DUUfeWQdX1U xUFOcZE6hgya3DPC4KMbw LQVxCbM2JJJfiEWgYOZht HznLQxhq447DJF1VqThTM 9hF3Fcf2G0aD8kzLXtBCE azZEkAyKsOEDiyz0rhBIw ZOawt4OxSBV0zaZ0mIVes OSnLRDeRP65Peoyc6IxDl qhEMB2KMNriiImq7Dsm8o zRlGfrwCjL4ikF6VuFMGt JLCbROHzXwSkafUxd1Vyz 0GsyCZubRq9f9jqQRIvXM FonDeuv1dvPXP4HDBwM0C 4xQKjt0ycYPbhJKSptSU9 iiU3WPRniVJxE5KioW7dN MHpIA8jnzj4s7atLOG2VG zrPKOwKdM2lvZ8VYDcaAO zDIRukRpsGLqjy447RND2 BwLtPYVpr3EfE4UknMokI 92uoSjvM27eBSBbiSpwhQ 0gpYwhhL2jVwWaYnNuREt xbFxwbGFpblxmMVxmczE2 EAygagveSSObIGqdC4qzO vFfOTDvuLltIPrrv7SoLH SrWHMrSICqEFnpY7eycK7 jvywlCPqwEMCzwZbxg7td SoRvvIB3AG3qudRhPSKlb WznzdM8sxNevLkitW2saA 9enFsolY9pxRHifBT1hty sIGluIHNpdHUgaHlicmlk mJfzfFirkvfosW2qBUK8y IZaAAD8bNYjRKVbTFRyQV SzkW65xe9ewXHybrQmY1X mL6OhyTEswTtfKrirvGMr dWKkTi9euCWoMH6sZYNrf JHtP6CjJY6fWWIpiggwEY IgVGhlIHVzZSBvZiBvbmU qq1XtfD0iKHNsUPJoXO93 jfBmjgM4uHNsHFMoatOko GVzdHMgaXMgcmVndWxhdG VnTJOeKRRrANTaBSm6nMU tj5QoM4qzqAZdrsUlQ5Vs uHFmVNVNPY4qACinp7Rph PDtnZXdh0OlZCJuLXKnfI 4nOIDjHZ3ySTPiLUsaETW tndLywc1ycaIvDXYsJPBw T8SmeojbwVmvicAyDDDgo h4nglEhLOM5JGXeTYCegZ jncRNqnFSuFIXxxhA8q2I oEOXhi2IdP7BtiJNgGWOd xALcGAO4s7DqgY6sVQzsy EEnAQRtDC0lqFGnTBAnQY NsZWFyZWQgYnkgdGhlIFV LZWUex9BgEF6yWSFwgIgn UNMypL8jw6TuZAJmb43kZ EZEQSkuIFRoZSBGREEgaG FzIGRldGVybWluZWQgdGh rtZZosMZbYXNsIILhKE1k XXUbilLxfMKhp8JwqTMue zXeo7PxqrAbDXWoJMB7Ah BccGFyXHBhciBBbGwgaW1 fqH0ts5XifX1rCWegtcHi aNBlDt7viJHzDM0eLWEhp mFmZmluIGVtYmVkZGVkIH Cvd5P0XV0tCQCnjz3guuk giOCjiM2nqWMiyiBnXV3c LH4gT8D7eTQjKJYmlxOpv 5saSDa6nPQiZWCskTXrqL ZmXlmfVLR4DAUjPNU8hjJ soyJhBSVnoZsgiQS2uBWs MMCwRTGjAYZoEI25F0Xmu 5UxF3knXA83VYKrCYPlRI GtmnElk1ioDHKei5wxHPZ gpDBmL7NaHHQpnTIxsnif JiJkCGP0HCKpFUM3oQSsD QPqE6FazHUvgPSykG63XE 6sfUS9VK8mRJJ2YJvxoL8 wMrZYcM05fu0ajGV4u0Se TY2vM8LyONUyj4G5kcJoY JImVR7irMTdHHDkOSFrjB lkYXRlZCBvbiBkZWNhbGN lIfbvTKQ8zTWzqZXaWvGT PYL0wRPcMDBmw8MrKEMzO EHxlmHsevWsZFTqNMH0kH JySUZhjTBdr69mW2l6LJ8 zePyjARUxlCSvTAOyk8Fw oRJdkUf6dZLmFgNuTOmhP KYwTTyvsOj8tCL8EZ1xMC BvC6WmH7dagCSdKOWnPOT bgKYnfx1mmPEopW== [facility] [place] Work Phone: Gross Description v2filEOpBLNdcTVIXAZn M SMnSD6kpKmobIm9wGtxJU MbxiW1zCNkGVpuy6ilBHU 9z9vgkeYCKhbhPFYmMF7p ALkyXODgDN0gWxUhLBUiR mYxXHBhcGVydzEyMjQwXH NzsXOvvFW4LPZgHD6rhbu wZWyuWCyiOSRkpnM6MJXn mOOjQ3LsEVYyLV1abglkR PH2SUSPBmfjCk4xrCApiB ANCntcZjFcZmNoYXJzZXQ mASDtq3dygqKJcmpmgJc6 YFi3DUPzJLFskIEak6O2B Txmr0vlz7EpS6Cvj3DdXX z4pO2ATrumP55ea7B7Bkg 5ZLXzGBc9FYefKBYfOYLj Ekv7QSq2P7abNLWqECdkA FYdMMiwsZZsQJt5STeyg5 EgfXGiLQq8KWhrHPTbJ7G bH3LoVWtjMaQzRZebEHLd IQKcUXecBRXiN0DCGCXhA lA2YPx6GXBzPFh4AAeiFw WBHUP4OKW8YdN2AIq8ODU wNG5tYTnxwUOqEOagPpaw HMvyX890VLygDFQpH7KyF 3QgXFxzZyBcXGlkIDUxMD JhVEpnFUKuH4GRSCQlXqU 0ZNt2SZAvAMg6MFdjA4CX ORDbCKJ0HFM6RqT0PtP0R Yp9BCSWQq5tJIW2Qbr4Jd d2WEG0IICiBMegaxmyKVf 0IDIgXFxzcyAzIFxcZmwg PCfsS10exMPbUDIYAplvn GFpblxlcGljTmVzdERvYz EaANewaNElwMWbBC0BKJz 0cmNoXGNmMVxmczIwIEEg VIOMuJT6tcDmEQIfudl3r PpjZACngSgsS9NvMVCyCB BhciANCjEwMDAgbUwgXHB ip5RvS9E8DGMeMWkck2vg FDJnSQvhx3SrAAeOIYZMN E6HIF7ysHZ4GTqKJPBTR6 aBuOPaRTLvX4wyeNT8y2j uvTZwm8l2BIpqERO5lIKz g6UowOmlJviqbUQ7CRfcV ufnfW3pfACXCJKENdoHFe yjsbJhZX3LMLEJYY2FbVB eVTQuD9bnzPM3d4xrwFSh l6l4DDckPPC6nRcogFJsl lxsdHJjaFxmczIwICBccH GrpJYnxPfdKmunxBU1BIk bVciizO1iqLUWSLTIUgaA BlibqeEgTW4HMYKWBdJWJ S29MWC5LNR8nWW0Yt78IZ MhYAZqhKSfSVeeB399mSM ckD72b4ncxVFzOCqcNtto nZKhpqJ1FBeGILYUJUjTN gEbUX2gURbMA9EJOgX9FW G8PDO4zSQ6Wr60PBBqARG dfBQoZBpuV494ZRDwYWwd WBr9jbDjFLRhPgQuZGMxe YpyYDWuO8UbeuXwSFvfnm 39TJF3u1kdoOLgIWmxGop frSGragB0YYgALARIPJgQ PqXwQE7vKVzVN7BVLSaEP cuhBOfdYkV0G0cnyFhkFr usrrWgoJIvMgRGuS3tsiP vaXuoZtdbwEK9IQvoOopq iQ7wdSVZNOCEZzjINcbof yJmMR3SXNGVYO4ZtNAbEA FqAUqxvXF6u2dyxUJbo7l 6TWaaUFO2aObodWUxyjzv nNMyjYucioOuEE7yQEWiq iANClxiXGNmMiBNYXRlcm fqnQJuRNNiiVWxQAJ0MPV rNNUyZQPhAECkzG9UdnLy IGFuZCAxIENlbGwgQmxvY 7kkiklhoXOhTI1BHQTrsm ANClxmMlxmczIyXHBhciA VBxckOEFeEZEdsJRCk5Jq ZFOQTev5VQ4XBWZvAPKeo RSUJAP9ZY9xUNyxEUZkJ7 UwX9YyyiH3o7zgnRwne1Y nySOzNS5pbFMnIN2LBEKq qdJaCJuscBwdqZ3xOGt8 [facility] Phone: Pathologist Interpretation Location [facility], [address] [place] [id number]; CLIA: [id number]; Joint Commission: [id number]; CAP: [id number] [facility] Phone: Pathology report final diagnosis Narrative z4fopTUpADSpfPEkNBEwO WrxfyQrBBPrsIZmW6Nyag tiSBhrAT3iTO7tsOilwDR brEZjTFXhOoZlc4zca309 jEFpf1jrEXMMIRjoWUJIR Ml9lUptI52si3F2FdsaK2 ivYNR5CPvhziVtvyx2NDY auKT5OHv0PBEspXEnawTy OeTjTCJxsJVcwQO9THCcH Z0yyhmnEUltTWilSLYnyh N0VWPbyPOwZ5EiXVXcTG8 yamiyYRI9VSypOOFoKZM4 AtLpYVJsl9Zsrro6TvWrr GFyZFxwbGFpblxmczIwXG NmMSBBICAtIFBsZXVyYWw rS2V5nQY0FLISNIV1LC7x Vz6jwBBVtWFkJIlgD8f5c 1irP0a9UUFcQSXuRAvpYL YsTe0wPJHECHaGMC6AKBE YKFfYEJoSCH8ELOPGUCRp XHBhclxwYXJ9 [employer] Work Phone: [employer] Work Phone: No Panel InformationOrdered By: Ronal Maurice on 04-14-2025 P [place] 44 degrees [employer] Work Phone: DE Interval 134 ms [employer] [facility] Work Phone: QRS [place] -35 degrees [facility]ab P[facility]at[facility], [facility] Work Phone: QRSD Interval 117 ms [facility] Work Phone: QT Interval 390 ms [employer] Work Phone: QTC Interval 450 ms [employer] Work Phone: T Wave [place] 78 degrees [employer] Work Phone: Shahab P. Tabatabai, [facility] Work Phone: Nursing Noteon 08-06-2025 Nursing Note Normal [facility] Progress Noteon 04-14-2025 Progress Note Normal [facility] Progress Note Normal [facility] Progress Note Normal [facility] Progress Note Normal [facility] Progress Note Normal [facility] Progress Note Normal [facility] Progress Note Normal [facility] US GUIDED THORACENTESISon US GUIDED THORACENTESIS Normal [facility] Vital signsOrdered By: Jake Maurice on 04-14-2025 Heart rate 80 /min bpm [facility] [employer] Phone: XR Chest Single viewon 04-14 [facility] XR Chest Single viewOrdered By: Anthony Christian on 04-14-2025 [facility] [employer] Phone: [phone] 04-13-2025 [id number] Normal [facility] BLOOD GAS ARTERIALon 025 AMOUNT OF OXYGEN 2 lpm Normal [facility] Comment on above: Order Comment: Pleas e draw tomorrow AM after using BiPAP. Thank you! Performed By: #### L [id number] ####Mammal Keeper: UNA ARCE ([id number])[facility] ([address] Base excess Calc (Bld) [Moles/Vol] 11.7 mmol/L High -3.0-3.0 [facility] Comment on above: Order Comment: Pleas e draw tomorrow AM after using BiPAP. Thank you! Performed By: #### L [id number] ####Mammal Keeper: UNA ARCE ([phone])[facility] ([facility])[address] [place] [address] CO2 [Moles/Vol] 39.9 mmol/L High 22.0-28.0 [facility] Comment on above: Order Comment: Pleas e draw tomorrow AM after using BiPAP. Thank you! Performed By: #### L [id number] ####Mammal Keeper: UNA [id number])[facility] [place] ([facility])[address] HCO3 (Bld) [Moles/Vol] 38.1 mmol/L High 21.0-27.[address] [facility] Comment on above: Order Comment: Pleas e draw tomorrow AM after using BiPAP. Thank you! Performed By: #### L [id number] ####Mammal Keeper: UNA STAUFFERMELANIE ([phone])[facility] ([facility])[address] Hemoglobin (Bld) [Mass/Vol] 11.3 g/dL Low Screen only [facility] Comment on above: Order Comment: Pleas e draw tomorrow AM after using BiPAP. Thank you! Performed By: #### L [id number] ####Mammal Keeper: UNA STAUFFERMELANIE ([phone])[facility] ([facility])[address] [place] [address] OXYGEN SATURATION (%) IN ARTERIAL BLOOD 95.1 % Low 97.0-99.0 [facility] Comment on above: Order Comment: Pleas e draw tomorrow AM after using BiPAP. Thank you! Performed By: #### L [id number] ####Mammal Keeper: UNA ARCE ([id number])[facility] ([facility])[address] [place] [address] PCO2 ARTERIAL 59.2 mm Hg High 35.0-48.0 [facility] Comment on above: Order Comment: Pleas e draw tomorrow AM after using BiPAP. Thank you! Performed By: #### L [id number] ####Mammal Keeper: UNA STAUFFERMELANIE ([id number])[facility] ([facility])[address] PH ARTERIAL 7.426 Normal 7.350-7.450 [facility] Comment on above: Order Comment: Pleas e draw tomorrow AM after using BiPAP. Thank you! Performed By: #### L [id number] ####Mammal Keeper: UNA ARCE ([id number])[facility] ([facility])[address] PO2 ARTERIAL 79.2 mm Hg Low 83.0-108.0 [facility] Comment on above: Order Comment: Pleas e draw tomorrow AM after using BiPAP. Thank you! Performed By: #### L [id number] ####Mammal Keeper: UNA ARCE ([phone])[facility] ([facility])[address] SOURCE OF OXYGEN Nasal Cannula (LPM) Normal [facility] Comment on above: Order Comment: Pleas e draw tomorrow AM after using BiPAP. Thank you! Performed By: #### L [id number] ####Mammal Keeper: UNA ARCE ([phone])[facility] ([facility])[address] Bacteria identified Aer cx N om (Unsp spec)on 04-13-2025 Gram Stain Result Rare Polymorphonuclear leukocytes per low power field [facility] Gram Stain Result No organisms seen [facility] Bacteria identified Aer cx N om (Unsp spec)Ordered By: Bianca Daigle on 04-13-2025 Gram Stain Result Moderate Polymorphonuclear leukocytes per low power field [facility] Gram Stain Result No organisms seen [facility] CBC W Auto Differential pane l (Bld)on 04-13-2025 Erythrocyte distribution width (RBC) [Ratio] 25 % High 11.5 - 15.0 % [facility] Hematocrit (Bld) [Volume fraction] 28.2 % Low 40.0 - 52.0 % [facility] Hemoglobin (Bld) [Mass/Vol] 7.8 g/dL Low 13.0 - 18.0 g/dL [facility] Interpretation and review of laboratory results Abnormal [facility] MCH (RBC) [Entitic mass] 23.2 pg Low 26. 0 - 34.0 pg [facility] MCHC (RBC) [Mass/Vol] 27.7 % Low 30.5 - 36.0 % [facility] MCV (RBC) [Entitic vol] 83.9 fL 77.0 - 99.0 fL [facility] Platelet mean volume (Bld) [Entitic vol] 9.1 fL 9.0 - 12.7 fL [facility] Platelets (Bld) [#/Vol] 276 10*3/uL 140 - 440 10*3/uL [facility] RBC (Bld) [#/Vol] 3.36 10*6/uL Low 4.40 - 5.9 0 10*6/uL [facility] WBC (Bld) [#/Vol] 12.7 10*3/uL High 3.6 - 10.7 10*3/uL [facility] CBC WITH AUTO DIFFERENTIALon 04-13-2025 Erythrocyte distribution width (RBC) [Ratio] 25.0 % High 11.5-15.0 [facility] Comment on above: Performed By: #### L [id number], [id number] ####Mammal Keeper: UNA ARCE ([id number])[facility] ([facility])[address] [place] [address] Hematocrit (Bld) [Volume fraction] 28.2 % Low 40.0-52.0 [facility] Comment on above: Performed By: #### L [id number], [id number] ####Mammal Keeper: UNA ARCE ([id number])[facility] ([facility])[address] [place] [address] Hemoglobin (Bld) [Mass/Vol] 7.8 g/dL Low 13.0-18.0 [facility] Comment on above: Performed By: #### L [id number], [id number] ####Mammal Keeper: UNA ARCE ([id number])[facility] ([facility])[address] [place] [address] MCH (RBC) [Entitic mass] 23.2 pg Low 26.0-34.0 [facility] Comment on above: Performed By: #### L [id number], [id number] ####Mammal Keeper: UNA ARCE ([id number])[facility] ([facility])[address] [place] [address] MCHC 27.7 % Low 30.5-36.0 [facility] Comment on above: Performed By: #### L [id number], [id number] ####Mammal Keeper: UNA ARCE ([id number])[facility] [place] ([facility])[address] MCV (RBC) [Entitic vol] 83.9 fL Normal 77.0-99.0 [facility] Comment on above: Performed By: #### L [id number], [id number] ####Mammal Keeper: UNA ARCE ([id number])[facility] [place] ([facility])[address] Platelet mean volume (Bld) [Entitic vol] 9.1 fL Normal 9.0-12.7 [facility] Comment on above: Performed By: #### L [id number], [id number] ####Mammal Keeper: UNA ARCE ([id number])[facility] [place] ([facility])[address] [place] [address] [place] Platelets (Bld) [#/Vol] 276 10*3/uL Normal 140-440 [facility] Comment on above: Performed By: #### L [id number], [id number] ####Mammal Keeper: UAN ARCE ([id number])[facility] [place] ([facility])[address] RBC (Bld) [#/Vol] 3.36 10*6/uL Low 4.40-5.90 [facility] Comment on above: Performed By: #### L [id number], [id number] ####Mammal Keeper: UNA ARCE ([id number])[facility] [place] ([facility])[address] [place] [address] [place] WBC (Bld) [#/Vol] 12.7 10*3/uL High 3.6-10.7 [facility] Comment on above: Performed By: #### L [id number], [id number] ####Mammal Keeper: UNA ARCE ([id number])[facility] [place] (SBHLAB)[address] COMPREHENSIVE METABOLIC PANE Anant 04-13-2025 Albumin [Mass/Vol] 2.2 g/dL Low 3.4-4.8 [facility] Comment on above: Performed By: #### L AB17, [id number], [id number] ####Mammal Keeper: UNA ARCE ([phone])[facility] [place] (SB[facility])[address] ALP [Catalytic activity/Vol] 52 U/L Normal 40-150 [facility] Comment on above: Performed By: #### L AB17, [id number], [id number] ####Mammal Keeper: UNA ARCE ([id number])[facility] [place] (SBHL[facility])[address] ALT [Catalytic activity/Vol] U/L Normal <40 [facility] Comment on above: Performed By: #### L AB17, QIP068, XED752 ####Mammal Keeper: UNA ARCE ([phone])[facility] [place] (SB[facility])[address] Anion gap [Moles/Vol] 10 mmol/L Normal 3-13 [facility] Comment on above: Performed By: #### L AB17, KQP951, BRX443 ####Mammal Keeper: UNA ARCE ([phone])[facility] (SB[facility])[address] AST [Catalytic activity/Vol] 25 U/L Normal <34 [facility] Comment on above: Performed By: #### L AB17, SYE430, YCS683 ####Mammal Keeper: UNA ARCE ([phone])[facility] [place] (SB[facility])[address] Bilirubin [Mass/Vol] 0.6 mg/dL Normal <1.2 [facility] Comment on above: Performed By: #### L AB17, BET422, MSE129 ####Mammal Keeper: UNA ARCE ([phone])[facility] [place] (SB[facility])[address] Calcium [Mass/Vol] 8.1 mg/dL Low 8.8-10.0 [facility] Comment on above: Performed By: #### L AB17, AMC510, MME063 ####Mammal Keeper: UNA ARCE ([phone])[facility] [place] (SB[facility])[address] Chloride [Moles/Vol] 93 mmol/L Low 98-107 [facility] Comment on above: Performed By: #### L AB17, XVR242, JLI297 ####Mammal Keeper: UNA ARCE ([phone])[facility] [place] (SB[facility])[address] CO2 [Moles/Vol] 36 mmol/L High 23-31 [facility] Comment on above: Performed By: #### Gilbert AB17, JVL865, HCN302 ####Mammal Keeper: UNA ARCE ([phone])[facility] [place] (SBHLAB)[address] Creatinine [Mass/Vol] 1.46 mg/dL High 0.72-1.25 [facility] Comment on above: Performed By: #### L AB17, YJP368, CSA814 ####Mammal Keeper: UNA ARCE ([phone])[facility] [place] (SBHLAB)[address] [place] [address] [place] GLOMERULAR FILTRATION RATE ML/MIN/1.73 SQ M.PREDICTED 45.7 mL/min/1.73m*2 Low >60.0 [facility] Comment on above: Result Comment: Calc ulation based on the Chronic Kidney Disease Epidemiology Collaboration (CKD-EPI) equation refit without adjustment for race Performed By: #### L AB17, IAU012, WFU050 ####Mammal Keeper: UNA ARCE ([phone])[facility] [place] (SB[facility])[address] [place] [address] [place] Glucose [Mass/Vol] 94 mg/dL Normal 82-115 [facility] Comment on above: Performed By: #### L AB17, BGR419, [id number] ####Mammal Keeper: UNA ARCE ([phone])[facility]ADAL[facility]ITALMar[facility] (SBHLAB)[address] Potassium [Moles/Vol] 3.4 mmol/L Low 3.5-5.1 [facility] Comment on above: Result Comment: [facility] potassium values may be up to 0.5 mmol/L lower than serum values. Performed By: #### L AB17, DAH893, HFE106 ####Mammal Keeper: UNA ARCE ([phone])[facility] (SBHLAB)[address] Protein [Mass/Vol] 5.8 g/dL Low 6.4-8.3 [facility] Comment on above: Performed By: #### L AB17, XSQ061, MDY313 ####Mammal Keeper: UNA ARCE ([phone])[facility] (SBHLAB)[address] Sodium [Moles/Vol] 139 mmol/L Normal 136-145 [facility] Comment on above: Performed By: #### L AB17, [id number], DJD446 ####Mammal Keeper: UNA ARCE ([phone])[facility] ([facility])[address] Urea nitrogen [Mass/Vol] 37 mg/dL High 9-23 [facility] Comment on above: Performed By: #### L AB17, BXF541, CAD898 ####Mammal Keeper: UNA ARCE ([phone])[facility] (SBHLAB)[address] Comprehensive metabolic 1998 panelon 04-13-2025 Albumin [Mass/Vol] 2.2 g/dL Low 3.4 - 4.8 g/dL [facility] ALP [Catalytic activity/Vol] 52 U/L 40 - 150 U/L [facility] ALT [Catalytic activity/Vol] U/L NINF - 40 U/L [facility] Anion gap [Moles/Vol] 10 mmol/L 3 - 13 mmol/L [facility] AST [Catalytic activity/Vol] 25 U/L NINF - 34 U/L [facility] Bilirubin [Mass/Vol] 0.6 mg/dL NINF - 1.2 mg/dL [facility] Calcium [Mass/Vol] 8.1 mg/dL Low 8.8 - 10. 0 mg/dL [facility] Chloride [Moles/Vol] 93 mmol/L Low 98 - 10 7 mmol/L [facility] CO2 [Moles/Vol] 36 mmol/L High 23 - 31 mmol/L [facility] Creatinine [Mass/Vol] 1.46 mg/dL High 0.72 - 1.25 mg/dL [facility] GFR/1.73 sq M.predicted (S/P/Bld) [Vol rate/Area] 45.7 mL/min Low - PINF [facility] Glucose [Mass/Vol] 94 mg/dL 82 - 115 mg/dL [facility] Interpretation and review of laboratory results Abnormal [facility] Potassium [Moles/Vol] 3.4 mmol/L Low 3.5 - 5.1 mmol/L [facility] Protein [Mass/Vol] 5.8 g/dL Low 6.4 - 8.3 g/dL [facility] Sodium [Moles/Vol] 139 mmol/L 136 - 145 mmol/L [facility] Urea nitrogen [Mass/Vol] 37 mg/dL High 9 - 23 mg/d L [facility] Laboratory - Chemistry and C hemistry - challengeon 04-13-2025 Base excess Calc (Bld) [Moles/Vol] 11.7 mmol/L High -3.0 - 3.0 mmol/L [facility] CO2 (Bld) [Partial pressure] 59.2 mm[Hg] High [facility] CO2 [Moles/Vol] 39.9 mmol/L High 22.0 - 28.0 mmol/L [facility] HCO3 (Bld) [Moles/Vol] 38.1 mmol/L High 21.0 - 27.0 mmol/L [facility] Oxygen (Bld) [Partial pressure] 79.2 mm[Hg] Low [facility] pH (Bld) 7.426 [pH] 7.350 - 7.450 [facility] Magnesium [Mass/Vol] 1.9 mg/dL 1.6 - 2 .6 mg/dL [facility] Laboratory - Hematology and Cell countson 04-13-2025 Hemoglobin (Bld) [Mass/Vol] 11.3 g/dL Low 13.5 - 17.5 g/dl [facility] Anisocytosis Ql (Bld) Moderate Abnormal (none) [facility] Eosinophils (Bld) [#/Vol] 0.3 10*3/uL 0.0 - 0.5 10*3/uL [facility] Eosinophils/100 WBC (Bld) 2 % 0 - 6 % [facility] Hypochromia Ql (Bld) Slight Abnormal (none) [facility] Lymphocytes (Bld) [#/Vol] 1.9 10*3/uL 1.0 - 4.3 10*3/uL [facility] Lymphocytes/100 WBC (Bld) 15 % 15 - 45 % [facility] Monocytes (Bld) [#/Vol] 0.9 10*3/uL 0.0 - 0.9 10*3/uL [facility] Monocytes/100 WBC (Bld) 7 % 5 - 13 % [facility] Myelocytes (Bld) [#/Vol] 0.1 10*3/uL High SELENE F - 0.0 10*3/uL [facility] Myelocytes/100 WBC (Bld) 1 % High NINF - 0 % [facility] Neutrophils (Bld) [#/Vol] 9.7 10*3/uL High 1.8 - 7.5 10*3/uL [facility] Poikilocytosis LM Ql (Bld) Slight Abnormal (none) [facility] RBC morphology finding Nom (Bld) abnormal [facility] Segmented neutrophils/100 WBC (Bld) 76 % 38 - 82 % [facility] Stomatocytes LM Ql (Bld) Slight Abnormal (none) [facility] Laboratory - Microbiology an d Antimicrobial susceptibilityon 04-13-2025 Bacteria identified Aer cx Nom (Unsp spec) No growth at 4 days [facility] - Microbiology an d Antimicrobial susceptibilityOrdered By: Bianca Daigle on 04-13-2025 Bacteria identified Aer cx Nom (Unsp spec) No growth at 4 days [facility] MAGNESIUMon 04-13-2025 Magnesium [Mass/Vol] 1.9 mg/dL Normal 1.6-2.6 [facility] Comment on above: Result Comment: ORDE R COMMENTS:Higher values can be expected in females during menses. Performed By: #### L AB17, [id number], [id number] ####Mammal Keeper: UNA ARCE ([id number])[facility] [place] (SB[facility])[address] MANUAL DIFFERENTIAL (CELLAVI BANDAR)on 04-13-2025 ANISOCYTOSIS PRESENCE IN BLOOD BY LIGHT MICROSCOPY Moderate Abnormal (none) [facility] Comment on above: Performed By: #### L [id number], [id number] ####Mammal Keeper: UNA ARCE ([id number])[facility] [place] (SB[facility])[address] BAND NEUTROPHILS TOTAL PER COUNTED LEUKOCYTES BY MANUAL COUNT Normal [facility] Comment on above: Performed By: #### L [id number], [id number] ####Mammal Keeper: UNA ARCE ([phone])[facility] [place] (SB[facility])[address] BASOPHILS TOTAL PER COUNTED LEUKOCYTES BY MANUAL COUNT Normal [facility] Comment on above: Performed By: #### L [id number], [id number] ####Mammal Keeper: UNA ARCE ([id number])[facility] [place] (SB[facility])[address] BLASTS TOTAL PER COUNTED LEUKOCYTES BY MANUAL COUNT Normal [facility] Comment on above: Performed By: #### L [id number], [id number] ####Mammal Keeper: UNA ARCE ([id number])[facility] [place] (SBHLAB)[address] [place] [address] [place] EOSINOPHILS (10*3/UL) IN BLOOD-CELLAVISION 0.3 10*3/uL Normal 0.0-0.5 [facility] Comment on above: Performed By: #### L [id number], [id number] ####Mammal Keeper: UNA ARCE ([id number])[facility] [place] (SB[facility])[address] [place] [address] [place] EOSINOPHILS TOTAL PER COUNTED LEUKOCYTES BY MANUAL COUNT 2 High 0-1 [facility] Comment on above: Performed By: #### L [id number], [id number] ####Mammal Keeper: UNA ARCE ([id number])[facility] [place] (SB[facility])[address] [place] [address] [place] EOSINOPHILS/100 LEUKOCYTES IN BLOOD-CELLAVISION 2 % Normal 0-6 [facility] Comment on above: Performed By: #### L [id number], [id number] ####Mammal Keeper: UNA MOHRCER ([id number])[facility] [place] (SBHLAB)[address] [place] [address] [place] HYPOCHROMIA (PRESENCE) IN BLOOD BY LIGHT MICROSCOPY Slight Abnormal (none) [facility] Comment on above: Performed By: #### L [id number], [id number] ####Mammal Keeper: UNA ARCE ([phone])[facility] (SBHLAB)[address] [place] [address] [place] LYMPHOCYTES (10*3/UL) IN BLOOD-CELLAVISION 1.9 10*3/uL Normal 1.0-4.3 [facility] Comment on above: Performed By: #### L [id number], [id number] ####Mammal Keeper: UNA ARCE ([phone])[facility] [place] (SB[facility])[address] [place] [address] [place] LYMPHOCYTES TOTAL PER COUNTED LEUKOCYTES BY MANUAL COUNT 15 Normal [facility] Comment on above: Performed By: #### L [id number], [id number] ####Mammal Keeper: UNA ARCE ([id number])[facility] [place] (SB[facility])[address] [place] [address] [place] LYMPHOCYTES/100 LEUKOCYTES IN BLOOD-CELLAVISION 15 % Normal 15-45 [facility] Comment on above: Performed By: #### L [id number], [id number] ####Mammal Keeper: UNA ARCE ([phone])[facility] [place] (SBHLAB)[address] [place] [address] [place] METAMYELOCYTES TOTAL PER COUNTED LEUKOCYTES BY MANUAL COUNT Normal [facility] Comment on above: Performed By: #### L [id number], [id number] ####Mammal Keeper: UNA ARCE ([phone])[facility] [place] (SB[facility])[address] [place] [address] [place] MONOCYTES (10*3/UL) IN BLOOD-CELLAVISION 0.9 10*3/uL Normal 0.0-0.9 [facility] Comment on above: Performed By: #### L [id number], [id number] ####Mammal Keeper: UNA ARCE ([id number])[facility] [place] (SBHLAB)[address] [place] [address] [place] MONOCYTES TOTAL PER COUNTED LEUKOCYTES BY MANUAL COUNT 7 Normal [facility] Comment on above: Performed By: #### L [id number], [id number] ####Mammal Keeper: UNA ARCE ([id number])[facility] [place] (SB[facility])[address] [place] [address] [place] MONOCYTES/100 LEUKOCYTES IN BLOOD-LUCIANA 7 % Normal 5-13 [facility] Comment on above: Performed By: #### L [id number], [id number] ####Mammal Keeper: UNA ARCE ([id number])[facility] [place] (SB[facility])[address] [place] [address] [place] MYELOCYTES (10*3/UL) IN BLOOD-CELLAVISION 0.1 10*3/uL High <=0.0 [facility] Comment on above: Performed By: #### L [id number], [id number] ####Mammal Keeper: UNA ARCE ([id number])[facility] [place] (SBHLAB)[address] [place] [address] [place] MYELOCYTES COUNTED BY MANUAL COUNT 1 Normal [facility] Comment on above: Performed By: #### L [id number], [id number] ####Mammal Keeper: UNA [id number])[facility] [place] (SBHLAB)[address] [place] [address] [place] MYELOCYTES/100 LEUKOCYTES IN BLOOD-CELLAVISION 1 % High <=0 [facility] Comment on above: Performed By: #### L [id number], [id number] ####Mammal Keeper: UNA ARCE ([id number])[facility] [place] (SBHLAB)[address] [place] [address] [place] NEUTROPHILS TOTAL PER COUNTED LEUKOCYTES BY MANUAL COUNT 77 Normal [facility] Comment on above: Performed By: #### L [id number], [id number] ####Mammal Keeper: UNA ARCE ([id number])[facility] [place] (SB[facility])[address] [place] [address] [place] POIKILOCYTOSIS (PRESENCE) IN BLOOD BY LIGHT MICROSCOPY Slight Abnormal (none) [facility] Comment on above: Performed By: #### L [id number], [id number] ####Mammal Keeper: UNA ARCE ([id number])[facility] [place] (SB[facility])[address] [place] [address] [place] PROMYELOCYTES TOTAL PER COUNTED LEUKOCYTES BY MANUAL COUNT Comment on above: Performed By: #### L [id number], [id number] ####Mammal Keeper: UNA ARCE ([id number])[facility] [place] (SB[facility])[address] [place] [address] [place] RBC MORPHOLOGY IN BLOOD abnormal Normal [facility] Comment on above: Performed By: #### L [id number], [id number] ####Mammal Keeper: UNA ARCE ([phone])[facility] [place] (SB[facility])[address] [place] [address] [place] SEGMENTED NEUTROPHILS (10*3/UL) IN BLOOD-CELLAVISION 9.7 10*3/uL High 1.8-7.5 [facility] Comment on above: Performed By: #### L [id number], [id number] ####Mammal Keeper: UNA ARCE ([phone])[facility] [place] (SB[facility])[address] SEGMENTED NEUTROPHILS/100 LEUKOCYTES-CE 76 % Normal 38-82 [facility] Comment on above: Performed By: #### L [id number], [id number] ####Mammal Keeper: UNA ARCE ([phone])[facility] (SBHLAB)[address] STOMATOCYTES IN BLOOD BY LIGHT MICROSCOPY Slight Abnormal (none) [facility] Comment on above: Performed By: #### L [id number], [id number] ####Mammal Keeper: UNA ARCE ([phone])[facility] (SBHLAB)[address] UNCLASSIFIED CELLS TOTAL PER COUNTED LEUKOCYTES BY MANUAL COUNT Normal [facility] Comment on above: Performed By: #### L [id number], [id number] ####Mammal Keeper: UNA ARCE ([phone])[facility] (SBHLAB)[address] VARIANT LYMPHOCYTES TOTAL PER COUNTED LEUKOCYTES BY MANUAL COUNT Normal [facility] Comment on above: Performed By: #### L [id number], [id number] ####Mammal Keeper: UNA ARCE ([phone])[facility] (SBHLAB)[address] Magnesium [Mass/Vol]on 04-13 [facility] No Panel Informationon 04-13 Amount Of Oxygen 2 lpm [facility] alth Interpretation and review of laboratory results Abnormal [facility] Source Of Oxygen Nasal Cannula (LPM) [facility] Interpretation and review of laboratory results Normal [facility] Eosinophils Manual 2 High 0 - 1 [facility] Interpretation and review of laboratory results Abnormal [facility] Lymphocytes Manual 15 [facility] Monocytes Manual 7 [facility]th Myelocytes Manual 1 [facility] ealth Neutrophils Manual 77 [facility] PHOSPHORUSon 04-13-2025 Phosphate [Mass/Vol] 2.9 mg/dL Normal 2.3-4.7 [facility] Comment on above: Performed By: #### L AB17, [id number], [id number] ####Mammal Keeper: UNA ACRE ([id number])[facility] (SBAB)[address] [place] [address] Phosphate [Moles/Vol]on Phosphate [Mass/Vol] 2.9 mg/dL 2.3 - 4 .7 mg/dL [facility] Progress Noteon 04-13-2025 Progress [facility] Progress Note [facility] Normal [facility] Progress Note Normal [facility] XR Chest Single viewon 04-13 Radiology Study observation (narrative) [facility] alth [id number] 04-12-2025 [id number] Normal [facility] [id number] Normal [facility] CBC W Auto Differential pane l (Bld)on 04-12-2025 Erythrocyte distribution width (RBC) [Ratio] 24.3 % High 11.5 - 15.0 % [facility] Hematocrit (Bld) [Volume fraction] 26.8 % Low 40.0 - 52.0 % [facility] Hemoglobin (Bld) [Mass/Vol] 7.4 g/dL Low 13.0 - 18.0 g/dL [facility] MCH (RBC) [Entitic mass] 23.1 pg Low 26. 0 - 34.0 pg [facility] MCHC (RBC) [Mass/Vol] 27.6 % Low 30.5 - 36.0 % [facility] MCV (RBC) [Entitic vol] 83.8 fL 77.0 - 99.0 fL [facility] Platelet mean volume (Bld) [Entitic vol] 9.3 fL 9.0 - 12.7 fL [facility] Platelets (Bld) [#/Vol] 272 10*3/uL 140 - 440 10*3/uL [facility] RBC (Bld) [#/Vol] 3.2 10*6/uL Low 4.40 - 5.9 0 10*6/uL [facility] WBC (Bld) [#/Vol] 12 10*3/uL High 3.6 - 10.7 10*3/uL [facility] CBC WITH AUTO DIFFERENTIALon 04-12-2025 Erythrocyte distribution width (RBC) [Ratio] 24.3 % High 11.5-15.0 [facility] Comment on above: Performed By: #### L [id number], [id number] ####Mammal Keeper: UNA ARCE ([id number])[facility] (SBHLAB)[address] Hematocrit (Bld) [Volume fraction] 26.8 % Low 40.0-52.0 [facility] Comment on above: Performed By: #### L [id number], [id number] ####Mammal Keeper: UNA ARCE ([phone])[facility] (SBAB)[address] Hemoglobin (Bld) [Mass/Vol] 7.4 g/dL Low 13.0-18.0 [facility] Comment on above: Performed By: #### L [id number], [id number] ####Mammal Keeper: UNA ARCE ([id number])[facility] (SBHLAB)[address] MCH (RBC) [Entitic mass] 23.1 pg Low 26.0-34.0 [facility] Comment on above: Performed By: #### L [id number], [id number] ####Mammal Keeper: UNA ARCE ([id number])[facility] (SBHLAB)[address] MCHC 27.6 % Low 30.5-36.0 [facility] Comment on above: Performed By: #### L [id number], [id number] ####Mammal Keeper: UNA ARCE ([id number])[facility] (SBHLAB)[address] MCV (RBC) [Entitic vol] 83.8 fL Normal 77.0-99.0 [facility] Comment on above: Performed By: #### L [id number], [id number] ####Mammal Keeper: UNA ARCE ([id number])[facility] [place] (SBHLAB)[address] Platelet mean volume (Bld) [Entitic vol] 9.3 fL Normal 9.0-12.7 [facility] Comment on above: Performed By: #### L [id number], [id number] ####Mammal Keeper: UNA ARCE ([id number])[facility] [place] (SB[facility])[address] Platelets (Bld) [#/Vol] 272 10*3/uL Normal 140-440 [facility] Comment on above: Performed By: #### L [id number], [id number] ####Mammal Keeper: UNA ARCE ([id number])[facility] [place] (SB[facility])[address] RBC (Bld) [#/Vol] 3.20 10*6/uL Low 4.40-5.90 [facility] Comment on above: Performed By: #### L [id number], [id number] ####Mammal Keeper: UNA ARCE ([id number])[facility] [place] (SB[facility])[address] WBC (Bld) [#/Vol] 12.0 10*3/uL High 3.6-10.7 [facility] Comment on above: Performed By: #### L [id number], [id number] ####Mammal Keeper: UNA ARCE ([id number])[facility] [place] (SB[facility])[address] COMPREHENSIVE METABOLIC PANE Anant 04-12-2025 Albumin [Mass/Vol] 2.2 g/dL Low 3.4-4.8 [facility] Comment on above: Performed By: #### L AB17, [id number], [id number] ####Mammal Keeper: UNA ARCE ([id number])[facility] [place] (SBHLAB)[address] [place] [address] [place] ALP [Catalytic activity/Vol] 49 U/L Normal 40-150 [facility] Comment on above: Performed By: #### L AB17, VIC662, MWI948 ####Mammal Keeper: UNA ARCE ([phone])[facility] [place] (SBHLAB)[address] [place] [address] [place] ALT [Catalytic activity/Vol] U/L Normal <40 [facility] Comment on above: Performed By: #### L AB17, PNS836, OYT461 ####Mammal Keeper: UNA ARCE ([id number])[facility] [place] (SB[facility])[address] Anion gap [Moles/Vol] 7 mmol/L Normal 3-13 [facility] Comment on above: Performed By: #### L AB17, CBM031, CEB178 ####Mammal Keeper: UNA ARCE ([phone])[facility] [place] (SB[facility])[address] AST [Catalytic activity/Vol] 19 U/L Normal <34 [facility] Comment on above: Performed By: #### L AB17, [id number], OXR690 ####Mammal Keeper: UNA ACRE ([id number])[facility] [place] (SB[facility])[address] Bilirubin [Mass/Vol] 0.6 mg/dL Normal <1.2 [facility] Comment on above: Performed By: #### L AB17, BDS506, ABJ950 ####Mammal Keeper: UNA ARCE ([phone])[facility] [place] (SBHLAB)[address] [place] [address] [place] Calcium [Mass/Vol] 7.9 mg/dL Low 8.8-10.0 [facility] Comment on above: Performed By: #### L AB17, [id number], NCI239 ####Mammal Keeper: UNA ARCE ([phone])[facility] [place] ([facility])[address] [place] [address] [place] Chloride [Moles/Vol] 95 mmol/L Low 98-107 [facility] Comment on above: Performed By: #### L AB17, KIP992, [id number] ####Mammal Keeper: UNA ARCE ([phone])[facility] ([facility])[address] CO2 [Moles/Vol] 37 mmol/L High 23-31 [facility] Comment on above: Performed By: #### L AB17, QCE433, XCI801 ####Mammal Keeper: UNA ARCE ([phone])[facility] Creatinine [Mass/Vol] 1.53 mg/dL High 0.72-1.25 [facility] Comment on above: Performed By: #### [place] AHN17, QUL188, XGT428 ####Mammal Keeper: UNA ARCE ([phone])[facility] GLOMERULAR FILTRATION RATE ML/MIN/1.73 SQ M.PREDICTED 43.2 mL/min/1.73m*2 Low >60.0 [facility] Comment on above: Result Comment: Calc ulation based on the Chronic Kidney Disease Epidemiology Collaboration (CKD-EPI) equation refit without adjustment for race Performed By: #### L 17, PED131, HNS729 ####Mammal Keeper: UNA ARCE ([phone])[facility] ([facility])[address] Glucose [Mass/Vol] 103 mg/dL Normal 82-115 [facility] Comment on above: Performed By: #### L AB17, LPV061, DRJ786 ####Mammal Keeper: UNA ARCE ([phone])[facility] ([facility])[address] Potassium [Moles/Vol] 3.7 mmol/L Normal 3.5-5.1 [facility] Comment on above: Result Comment: Plas ma potassium values may be up to 0.5 mmol/L lower than serum values. Performed By: #### L AB17, [id number], BRV829 ####Mammal Keeper: UNA STAUFFERMELANIE ([phone])[facility] ([facility])[address] Protein [Mass/Vol] 5.6 g/dL Low 6.4-8.3 [facility] Comment on above: Performed By: #### L AB17, WNY442, ZQE262 ####Mammal Keeper: UNA ARCE ([phone])[facility] ([facility])[address] Sodium [Moles/Vol] 139 mmol/L Normal 136-145 [facility] Comment on above: Performed By: #### L AB17, HXO034, ZLF862 ####Mammal Keeper: UNA ARCE ([phone])[facility] ([facility])[address] Urea nitrogen [Mass/Vol] 40 mg/dL High 9-23 [facility] Comment on above: Performed By: #### L AB17, [id number], [id number] ####Mammal Keeper: UNA BERMUDEZPEDRO ([phone])[facility] ([facility])[address] [place] [address] Comprehensive metabolic 1998 panelon 04-12-2025 Albumin [Mass/Vol] 2.2 g/dL Low 3.4 - 4.8 g/dL [facility] ALP [Catalytic activity/Vol] 49 U/L 40 - 150 U/L [facility] ALT [Catalytic activity/Vol] U/L NINF - 40 U/L [facility] Anion gap [Moles/Vol] 7 mmol/L 3 - 13 mmol/L [facility] AST [Catalytic activity/Vol] 19 U/L NINF - 34 U/L [facility] Bilirubin [Mass/Vol] 0.6 mg/dL NINF - 1.2 mg/dL [facility] Calcium [Mass/Vol] 7.9 mg/dL Low 8.8 - 10. 0 mg/dL [facility] Chloride [Moles/Vol] 95 mmol/L Low 98 - 10 7 mmol/L [facility] CO2 [Moles/Vol] 37 mmol/L High 23 - 31 mmol/L [facility] Creatinine [Mass/Vol] 1.53 mg/dL High 0.72 - 1.25 mg/dL [facility] GFR/1.73 sq M.predicted (S/P/Bld) [Vol rate/Area] 43.2 mL/min Low - PINF [facility] Glucose [Mass/Vol] 103 mg/dL 82 - 115 mg/dL [facility] Interpretation and review of laboratory results Abnormal [facility] Potassium [Moles/Vol] 3.7 mmol/L 3.5 - 5.1 mmol/L [facility] Protein [Mass/Vol] 5.6 g/dL Low 6.4 - 8.3 g/dL [facility] Sodium [Moles/Vol] 139 mmol/L 136 - 145 mmol/L [facility] Urea nitrogen [Mass/Vol] 40 mg/dL High 9 - 23 mg/d L [facility] Consulton 04-12-2025 Consult Normal [facility] Laboratory - Chemistry and C hemistry - challengeon 04-12-2025 Magnesium [Mass/Vol] 2.2 mg/dL 1.6 - 2 .6 mg/dL [facility] Laboratory - Hematology and Cell countson 04-12-2025 Anisocytosis Ql (Bld) Slight Abnormal (none) [facility] Band form neutrophils (Bld) [#/Vol] 0.1 10*3/uL High NINF - 0.0 10*3/uL [facility] Band form neutrophils/100 WBC (Bld) 1 % High NINF - 0 % [facility] Eosinophils (Bld) [#/Vol] 0.8 10*3/uL High 0.0 - 0.5 10*3/uL [facility] Eosinophils/100 WBC (Bld) 7 % High 0 - 6 % [facility] Lymphocytes (Bld) [#/Vol] 0.7 10*3/uL Low 1.0 - 4.3 10*3/uL [facility] Lymphocytes/100 WBC (Bld) 6 % Low 15 - 45 % [facility] Monocytes (Bld) [#/Vol] 0.5 10*3/uL 0.0 - 0.9 10*3/uL [facility] Monocytes/100 WBC (Bld) 4 % Low 5 - 13 % [facility] Neutrophils (Bld) [#/Vol] 9.8 10*3/uL High 1.8 - 7.5 10*3/uL [facility] RBC morphology finding Nom (Bld) abnormal [facility] Segmented neutrophils/100 WBC (Bld) 81 % 38 - 82 % [facility] MAGNESIUMon 04-12-2025 Magnesium [Mass/Vol] 2.2 mg/dL Normal 1.6-2.6 [facility] Comment on above: Result Comment: YARELI [place] COMMENTS:Higher values can be expected in females during menses. Performed By: #### L AB17, [id number], [id number] ####Mammal Keeper: UNA ARCE ([phone])[facility] [place] ([facility])[address] MANUAL DIFFERENTIAL (CELLAVI BANDAR)on 04-12-2025 ANISOCYTOSIS PRESENCE IN BLOOD BY LIGHT MICROSCOPY Slight Abnormal (none) [facility] Comment on above: Performed By: #### L [id number], [id number] ####Mammal Keeper: UNA ARCE ([id number])[facility] [place] ([facility])[address] BAND NEUTROPHILS TOTAL PER COUNTED LEUKOCYTES BY MANUAL COUNT 1 Normal [facility] Comment on above: Performed By: #### L [id number], [id number] ####Mammal Keeper: UNA ARCE ([id number])[facility] [place] ([facility])[address] BANDS (10*3/UL) IN BLOOD-CELLAVISION 0.1 10*3/uL High <=0.0 [facility] Comment on above: Performed By: #### L [id number], [id number] ####Mammal Keeper: UNA ARCE ([phone])[facility] [place] ([facility])[address] BASOPHILS TOTAL PER COUNTED LEUKOCYTES BY MANUAL COUNT Normal [facility] Comment on above: Performed By: #### L [id number], [id number] ####Mammal Keeper: UNA BERMUDEZPEDRO ([phone])[facility] [place] ([facility])[address] [place] [address] [place] BLASTS TOTAL PER COUNTED LEUKOCYTES BY MANUAL COUNT Normal [facility] Comment on above: Performed By: #### L [id number], [id number] ####Mammal Keeper: UNA YAZMIN ([phone])[facility] [place] ([facility])[address] [place] [address] [place] EOSINOPHILS (10*3/UL) IN BLOOD-CELLAVISION 0.8 10*3/uL High 0.0-0.5 [facility] Comment on above: Performed By: #### L [id number], [id number] ####Mammal Keeper: UNA BERMUDEZPEDRO ([phone])[facility] [place] ([facility])[address] [place] [address] [place] EOSINOPHILS TOTAL PER COUNTED LEUKOCYTES BY MANUAL COUNT 7 High 0-1 [facility] Comment on above: Performed By: #### L [id number], [id number] ####Mammal Keeper: UNA BERMUDEZPEDRO ([phone])[facility] [place] ([facility])[address] [place] [address] [place] EOSINOPHILS/100 LEUKOCYTES IN BLOOD-CELLAVISION 7 % High 0-6 [facility] Comment on above: Performed By: #### L [id number], [id number] ####Mammal Keeper: UNA BERMUDEZPEDRO ([phone])[facility] [place] ([facility])[address] [place] [address] [place] LYMPHOCYTES (10*3/UL) IN BLOOD-CELLAVISION 0.7 10*3/uL Low 1.0-4.3 [facility] Comment on above: Performed By: #### L [id number], [id number] ####Mammal Keeper: UNA BERMUDEZPEDRO ([phone])[facility] [place] ([facility])[address] [place] [address] [place] LYMPHOCYTES TOTAL PER COUNTED LEUKOCYTES BY MANUAL COUNT 6 Normal [facility] Comment on above: Performed By: #### L [id number], [id number] ####Mammal Keeper: UNA ARCE ([id number])[facility] [place] ([facility])[address] [place] [address] [place] LYMPHOCYTES/100 LEUKOCYTES IN BLOOD-CELLAVISION 6 % Low 15-45 [facility] Comment on above: Performed By: #### L [id number], [id number] ####Mammal Keeper: UNA ARCE ([phone])[facility] [place] ([facility])[address] [place] [address] [place] METAMYELOCYTES TOTAL PER COUNTED LEUKOCYTES BY MANUAL COUNT Normal [facility] Comment on above: Performed By: #### L [id number], [id number] ####Mammal Keeper: UNA BERMUDEZPEDRO ([phone])[facility] [place] ([facility])[address] [place] [address] [place] MONOCYTES (10*3/UL) IN BLOOD-CELLAVISION 0.5 10*3/uL Normal 0.0-0.9 [facility] Comment on above: Performed By: #### L [id number], [id number] ####Mammal Keeper: UNA ARCE ([id number])[facility] [place] ([facility])[address] [place] [address] [place] MONOCYTES TOTAL PER COUNTED LEUKOCYTES BY MANUAL COUNT 4 Normal [facility] Comment on above: Performed By: #### L [id number], [id number] ####Mammal Keeper: UNA ARCE ([id number])[facility] [place] ([facility])[address] [place] [address] [place] MONOCYTES/100 LEUKOCYTES IN BLOOD-LUCIANA 4 % Low 5-13 [facility] Comment on above: Performed By: #### L [id number], [id number] ####Mammal Keeper: UNA STAUFFERMELANIE ([phone])[facility] [place] ([facility])[address] [place] [address] [place] MYELOCYTES COUNTED BY MANUAL COUNT Normal [facility] Comment on above: Performed By: #### L [id number], [id number] ####Mammal Keeper: UNA YAZMIN ([id number])[facility] [place] ([facility])[address] [place] [address] [place] NEUTROPHILS BAND FORM/100 LEUKOCYTES IN BLOOD-CELLAVISI 1 % High <=0 [facility] Comment on above: Performed By: #### L [id number], [id number] ####Mammal Keeper: UNA BERMUDEZPEDRO ([phone])[facility] [place] ([facility])[address] [place] [address] [place] NEUTROPHILS TOTAL PER COUNTED LEUKOCYTES BY MANUAL COUNT 83 Normal [facility] Comment on above: Performed By: #### L [id number], [id number] ####Mammal Keeper: UNA BERMUDEZPEDRO ([phone])[facility] [place] ([facility])[address] [place] [address] [place] PROMYELOCYTES TOTAL PER COUNTED LEUKOCYTES BY MANUAL COUNT Comment on above: Performed By: #### L [id number], [id number] ####Mammal Keeper: UNA BERMUDEZPEDRO ([id number])[facility] [place] ([facility])[address] [place] [address] [place] RBC MORPHOLOGY IN BLOOD abnormal Normal [facility] Comment on above: Performed By: #### L [id number], [id number] ####Mammal Keeper: UNA STAUFFERMELANIE ([phone])[facility] [place] ([facility])[address] [place] [address] [place] SEGMENTED NEUTROPHILS (10*3/UL) IN BLOOD-CELLAVISION 9.8 10*3/uL High 1.8-7.5 [facility] Comment on above: Performed By: #### L [id number], [id number] ####Mammal Keeper: UNA ARCE ([phone])[facility] [place] ([facility])[address] [place] [address] [place] SEGMENTED NEUTROPHILS/100 LEUKOCYTES-CE 81 % Normal 38-82 [facility] Comment on above: Performed By: #### L [id number], [id number] ####Mammal Keeper: UNA ARCE ([id number])[facility] ([facility])[address] UNCLASSIFIED CELLS TOTAL PER COUNTED LEUKOCYTES BY MANUAL COUNT Normal [facility] Comment on above: Performed By: #### L [id number], [id number] ####Mammal Keeper: UNA ARCE ([id number])[facility] ([facility])[address] VARIANT LYMPHOCYTES TOTAL PER COUNTED LEUKOCYTES BY MANUAL COUNT Normal [facility] Comment on above: Performed By: #### L [id number], [id number] ####Mammal Keeper: UNA ARCE ([id number])[facility] [place] ([facility])[address] Magnesium [Mass/Vol]on 04-12 [facility] No Panel Informationon 04-12 Bands Manual 1 [facility] Eosinophils Manual 7 High 0 - 1 [facility] Interpretation and review of laboratory results Abnormal [facility] Lymphocytes Manual 6 [facility] Monocytes Manual 4 [facility]th Neutrophils Manual 83 [facility] Interpretation and review of laboratory results Normal [facility] PHOSPHORUSon 04-12-2025 Phosphate [Mass/Vol] 2.7 mg/dL Normal 2.3-4.7 [facility] Comment on above: Performed By: #### L AB17, [id number], [id number] ####Mammal Keeper: UNA ARCE ([id number])[facility] ([facility])[address] [place] [address] [place] Phosphate [Moles/Vol]on Phosphate [Mass/Vol] 2.7 mg/dL 2.3 - 4 .7 mg/dL [facility] Progress Noteon 04-12-2025 Progress Note Normal [facility] Progress Note Normal [facility] Progress Note Normal [facility] Progress Note Normal [facility] Progress [facility] CBC W Auto Differential pane l (Bld)on 04-11-2025 Erythrocyte distribution width (RBC) [Ratio] 24.2 % High 11.5 - 15.0 % [facility] Hematocrit (Bld) [Volume fraction] 28.9 % Low 40.0 - 52.0 % [facility] Hemoglobin (Bld) [Mass/Vol] 7.9 g/dL Low 13.0 - 18.0 g/dL [facility] Interpretation and review of laboratory results Abnormal [facility] MCH (RBC) [Entitic mass] 22.7 pg Low 26. 0 - 34.0 pg [facility] MCHC (RBC) [Mass/Vol] 27.3 % Low 30.5 - 36.0 % [facility] MCV (RBC) [Entitic vol] 83 fL 77.0 - 99.0 fL [facility] Platelet mean volume (Bld) [Entitic vol] 9.2 fL 9.0 - 12.7 fL [facility] Platelets (Bld) [#/Vol] 313 10*3/uL 140 - 440 10*3/uL [facility] RBC (Bld) [#/Vol] 3.48 10*6/uL Low 4.40 - 5.9 0 10*6/uL [facility] WBC (Bld) [#/Vol] 13.8 10*3/uL High 3.6 - 10.7 10*3/uL [facility] CBC WITH AUTO DIFFERENTIALon 04-11-2025 Erythrocyte distribution width (RBC) [Ratio] 24.2 % High 11.5-15.0 [facility] Comment on above: Performed By: #### L [id number], [id number] ####Mammal Keeper: UNA ARCE ([phone])[facility] ([facility])[address] [place] [address] Hematocrit (Bld) [Volume fraction] 28.9 % Low 40.0-52.0 [facility] Comment on above: Performed By: #### L [id number], [id number] ####Mammal Keeper: UNA ARCE ([phone])[facility] ([facility])[address] Hemoglobin (Bld) [Mass/Vol] 7.9 g/dL Low 13.0-18.0 [facility] Comment on above: Performed By: #### L [id number], [id number] ####Mammal Keeper: UNA ARCE ([id number])[facility] [place] ([facility])[address] MCH (RBC) [Entitic mass] 22.7 pg Low 26.0-34.0 [facility] Comment on above: Performed By: #### L [id number], [id number] ####Mammal Keeper: UNA ARCE ([id number])[facility]ALU[facility] ([facility])[address] MCHC 27.3 % Low 30.5-36.0 [facility] Comment on above: Performed By: #### L [id number], [id number] ####Mammal Keeper: UNA ARCE ([id number])[facility] SANCHEZCHRISTINAN ([facility])[address] MCV (RBC) [Entitic vol] 83.0 fL Normal 77.0-99.0 [facility] Comment on above: Performed By: #### L [id number], [id number] ####Mammal Keeper: UNA ARCE ([id number])[facility] ([facility])[address] Platelet mean volume (Bld) [Entitic vol] 9.2 fL Normal 9.0-12.7 [facility] Comment on above: Performed By: #### L [id number], [id number] ####Mammal Keeper: UNA ARCE ([id number])[facility] ([facility])[address] Platelets (Bld) [#/Vol] 313 10*3/uL Normal 140-440 [facility] Comment on above: Performed By: #### L [id number], [id number] ####Mammal Keeper: UNA ARCE ([id number])[facility] ([facility])[address] RBC (Bld) [#/Vol] 3.48 10*6/uL Low 4.40-5.90 [facility] Comment on above: Performed By: #### L [id number], [id number] ####Mammal Keeper: UNA ARCE ([id number])[facility] [place] ([facility])[address] WBC (Bld) [#/Vol] 13.8 10*3/uL High 3.6-10.7 [facility] Comment on above: Performed By: #### L [id number], [id number] ####Mammal Keeper: UNA ARCE ([phone])[facility] BASHIRMarisol ([facility])[address] COMPREHENSIVE METABOLIC PANE Anant 04-11-2025 Albumin [Mass/Vol] 2.4 g/dL Low 3.4-4.8 [facility] Comment on above: Performed By: #### L AB17, [id number], NVZ262 ####Mammal Keeper: UNA ARCE ([id number])[facility] [place] ([facility])[address] ALP [Catalytic activity/Vol] 53 U/L Normal 40-150 [facility] Comment on above: Performed By: #### L AB17, VPJ061, ZTZ300 ####Mammal Keeper: UNA ARCE ([phone])[facility] [place] ([facility])[address] ALT [Catalytic activity/Vol] U/L Normal <40 [facility] Comment on above: Performed By: #### L AB17, IOA285, KAM396 ####Mammal Keeper: UNA ARCE ([id number])[facility]ZGUADALU[facility] HOSPITALMarisol ([facility])[address] Anion gap [Moles/Vol] 10 mmol/L Normal 3-13 [facility] Comment on above: Performed By: #### L AB17, XVT181, FKR792 ####Mammal Keeper: UNA ARCE ([id number])[facility]N ([facility])[address] [place] [address] [place] AST [Catalytic activity/Vol] 18 U/L Normal <34 [facility] Comment on above: Performed By: #### L AB17, QUA225, KMC526 ####Mammal Keeper: UNA ARCE ([id number])[facility] BASHIRN ([facility])[address] Bilirubin [Mass/Vol] 0.7 mg/dL Normal <1.2 [facility] Comment on above: Performed By: #### L AB17, TWP587, PSI389 ####Mammal Keeper: UNA ARCE ([phone])[facility] BASHIRN ([facility])[address] Calcium [Mass/Vol] 8.1 mg/dL Low 8.8-10.0 [facility] Comment on above: Performed By: #### L AB17, TJN850, TUF953 ####Mammal Keeper: UNA ARCE ([phone])[facility]N ([facility])[address] [place] [address] [place] Chloride [Moles/Vol] 94 mmol/L Low 98-107 [facility] Comment on above: Performed By: #### L AB17, GTA828, TXT052 ####Mammal Keeper: UNA ARCE ([phone])[facility]N ([facility])[address] [place] [address] [place] CO2 [Moles/Vol] 35 mmol/L High 23-31 [facility] Comment on above: Performed By: #### L AB17, HYH738, KAC094 ####Mammal Keeper: UNA ARCE ([id number])[facility] [place] ([facility])[address] [place] [address] [place] Creatinine [Mass/Vol] 1.55 mg/dL High 0.72-1.25 [facility] Comment on above: Performed By: #### L AB17, CJO212, KED589 ####Mammal Keeper: UNA ARCE ([id number])[facility]ZEN[facility] ([facility])[address] GLOMERULAR FILTRATION RATE ML/MIN/1.73 SQ M.PREDICTED 42.5 mL/min/1.73m*2 Low >60.0 [facility] Comment on above: Result Comment: Calc ulation based on the Chronic Kidney Disease Epidemiology Collaboration (CKD-EPI) equation refit without adjustment for race Performed By: #### L AB17, [id number], TDL816 ####Mammal Keeper: UNA ARCE ([phone])[facility] ([facility])[address] Glucose [Mass/Vol] 103 mg/dL Normal 82-115 [facility] Comment on above: Performed By: #### L AB17, JLJ255, KNC787 ####Mammal Keeper: UNA ARCE ([phone])[facility] ([facility])[address] Potassium [Moles/Vol] 3.6 mmol/L Normal 3.5-5.1 [facility] Comment on above: Result Comment: [facility] potassium values may be up to 0.5 mmol/L lower than serum values. Performed By: #### L AB17, [id number], DUI945 ####Mammal Keeper: UNA ARCE ([phone])[facility] ([facility])[address] [place] [address] [place] Protein [Mass/Vol] 6.1 g/dL Low 6.4-8.3 [facility] Comment on above: Performed By: #### L AB17, SRU059, AFY275 ####Mammal Keeper: UNA ARCE ([id number])[facility] ([facility])[address] Sodium [Moles/Vol] 139 mmol/L Normal 136-145 [facility] Comment on above: Performed By: #### L AB17, FUZ525, PRC744 ####Mammal Keeper: UNA ARCE ([id number])[facility] ([facility])[address] Urea nitrogen [Mass/Vol] 36 mg/dL High 9-23 [facility] Comment on above: Performed By: #### L AB17, UEQ651, GDQ185 ####Mammal Keeper: UNA ARCE ([phone])[facility] ([facility])[address] Comprehensive metabolic 1998 panelon 04-11-2025 Albumin [Mass/Vol] 2.4 g/dL Low 3.4 - 4.8 g/dL [facility] ALP [Catalytic activity/Vol] 53 U/L 40 - 150 U/L [facility] ALT [Catalytic activity/Vol] U/L NINF - 40 U/L [facility] Anion gap [Moles/Vol] 10 mmol/L 3 - 13 mmol/L [facility] AST [Catalytic activity/Vol] 18 U[facility] U/L [facility] Bilirubin [Mass/Vol] 0.7 mg/dL NINF - 1.2 mg/dL [facility] Calcium [Mass/Vol] 8.1 mg/dL Low 8.8 - 10. 0 mg/dL [facility] Chloride [Moles/Vol] 94 mmol/L Low 98 - 10 7 mmol/L [facility] CO2 [Moles/Vol] 35 mmol/L High 23 - 31 mmol/L [facility] Creatinine [Mass/Vol] 1.55 mg/dL High 0.72 - 1.25 mg/dL [facility] GFR/1.73 sq M.predicted (S/P/Bld) [Vol rate/Area] 42.5 mL/min Low - PINF [facility] Glucose [Mass/Vol] 103 mg/dL 82 - 115 mg/dL [facility] Interpretation and review of laboratory results Abnormal [facility] Potassium [Moles/Vol] 3.6 mmol/L 3.5 - 5.1 mmol/L [facility] Protein [Mass/Vol] 6.1 g/dL Low 6.4 - 8.3 g/dL [facility] Sodium [Moles/Vol] 139 mmol/L 136 - 145 mmol/L [facility] Urea nitrogen [Mass/Vol] 36 mg/dL High 9 - 23 mg/d L [facility] Laboratory - Chemistry and C hemistry - challengeon 04-11-2025 Magnesium [Mass/Vol] 1.7 mg/dL 1.6 - 2 .6 mg/dL [facility] Laboratory - Hematology and Cell countson 04-11-2025 Anisocytosis Ql (Bld) Moderate Abnormal (none) [facility] Basophilic stippling LM Ql (Bld) Slight Abnormal (none) [facility] Basophils (Bld) [#/Vol] 0.1 10*3/uL 0.0 - 0.2 10*3/uL [facility] Basophils/100 WBC (Bld) 1 % 0 - 2 % [facility] Dacrocytes LM Ql (Bld) Rare Abnormal (none) [facility] Eosinophils (Bld) [#/Vol] 0.1 10*3/uL 0.0 - 0.5 10*3/uL [facility] Eosinophils/100 WBC (Bld) 1 % 0 - 6 % [facility] Hypochromia Ql (Bld) Slight Abnormal (none) [facility] Lymphocytes (Bld) [#/Vol] 1.4 10*3/uL 1.0 - 4.3 10*3/uL [facility] Lymphocytes/100 WBC (Bld) 10 % Low 15 - 45 % [facility] Monocytes (Bld) [#/Vol] 1.8 10*3/uL High 0.0 - 0.9 10*3/uL [facility] Monocytes/100 WBC (Bld) 13 % 5 - 13 % [facility] Neutrophils (Bld) [#/Vol] 10.5 10*3/uL High 1.8 - 7.5 10*3/uL [facility] Ovalocytes LM Ql (Bld) Slight Abnormal (none) [facility] Poikilocytosis LM Ql (Bld) Slight Abnormal (none) [facility] Polychromasia LM Ql (Bld) Slight Abnormal (none) [facility] RBC morphology finding Nom (Bld) abnormal [facility] Segmented neutrophils/100 WBC (Bld) 76 % 38 - 82 % [facility] Stomatocytes LM Ql (Bld) Slight Abnormal (none) [facility] Target cells LM Ql (Bld) Slight Abnormal (none) [facility] MAGNESIUMon 04-11-2025 Magnesium [Mass/Vol] 1.7 mg/dL Normal 1.6-2.6 [facility] Comment on above: Result Comment: ORDE R COMMENTS:Higher values can be expected in females during menses. Performed By: #### L AB17, [id number], [id number] ####Mammal Keeper: UNA ARCE ([id number])[facility] [place] ([facility])[address] MANUAL DIFFERENTIAL (CELLAVI BANDAR)on 04-11-2025 ANISOCYTOSIS PRESENCE IN BLOOD BY LIGHT MICROSCOPY Moderate Abnormal (none) [facility] Comment on above: Performed By: #### L [id number], [id number] ####Mammal Keeper: UNA ARCE ([phone])[facility] [place] ([facility])[address] BAND NEUTROPHILS TOTAL PER COUNTED LEUKOCYTES BY MANUAL COUNT Normal [facility] Comment on above: Performed By: #### L [id number], [id number] ####Mammal Keeper: UNA ARCE ([phone])[facility] [place] ([facility])[address] BASOPHILIC STIPPLING PRESENCE IN BLOOD BY LIGHT MICROSCOPY Slight Abnormal (none) [facility] Comment on above: Performed By: #### L [id number], [id number] ####Mammal Keeper: UNA ARCE ([phone])[facility] [place] ([facility])[address] BASOPHILS (10*3/UL) IN BLOOD-CELLAVISION 0.1 10*3/uL Normal 0.0-0.2 [facility] Comment on above: Performed By: #### L [id number], [id number] ####Mammal Keeper: UNA ARCE ([id number])[facility] [place] ([facility])[address] BASOPHILS TOTAL PER COUNTED LEUKOCYTES BY MANUAL COUNT 1 Normal [facility] Comment on above: Performed By: #### L [id number], [id number] ####Mammal Keeper: UNA ARCE ([phone])[facility] [place] ([facility])[address] [place] [address] [place] BASOPHILS/100 LEUKOCYTES IN BLOOD-CELLAVISION 1 % Normal 0-2 [facility] Comment on above: Performed By: #### L [id number], [id number] ####Mammal Keeper: UNA ARCE ([phone])[facility] [place] ([facility])[address] [place] [address] [place] BLASTS TOTAL PER COUNTED LEUKOCYTES BY MANUAL COUNT Normal [facility] Comment on above: Performed By: #### L [id number], [id number] ####Mammal Keeper: UNA MOHRCER ([phone])[facility] [place] ([facility])[address] [place] [address] [place] DACROCYTES PRESENCE IN BLOOD BY LIGHT MICROSCOPY Rare Abnormal (none) [facility] Comment on above: Performed By: #### L [id number], [id number] ####Mammal Keeper: UNA ARCE ([id number])[facility] [place] ([facility])[address] [place] [address] [place] EOSINOPHILS (10*3/UL) IN BLOOD-CELLAVISION 0.1 10*3/uL Normal 0.0-0.5 [facility] Comment on above: Performed By: #### L [id number], [id number] ####Mammal Keeper: UNA ARCE ([phone])[facility] [place] ([facility])[address] [place] [address] [place] EOSINOPHILS TOTAL PER COUNTED LEUKOCYTES BY MANUAL COUNT 1 Normal 0-1 [facility] Comment on above: Performed By: #### L [id number], [id number] ####Mammal Keeper: UNA ARCE ([id number])[facility] [place] ([facility])[address] [place] [address] [place] EOSINOPHILS/100 LEUKOCYTES IN BLOOD-CELLAVISION 1 % Normal 0-6 [facility] Comment on above: Performed By: #### L [id number], [id number] ####Mammal Keeper: UNA ARCE ([phone])[facility] [place] ([facility])[address] HYPOCHROMIA (PRESENCE) IN BLOOD BY LIGHT MICROSCOPY Slight Abnormal (none) [facility] Comment on above: Performed By: #### L [id number], [id number] ####Mammal Keeper: UNA ARCE ([phone])[facility] [place] ([facility])[address] [place] [address] [place] LYMPHOCYTES (10*3/UL) IN BLOOD-CELLAVISION 1.4 10*3/uL Normal 1.0-4.3 [facility] Comment on above: Performed By: #### L [id number], [id number] ####Mammal Keeper: UNA ARCE ([phone])[facility] [place] (SB[facility])[address] LYMPHOCYTES TOTAL PER COUNTED LEUKOCYTES BY MANUAL COUNT 10 Normal [facility] Comment on above: Performed By: #### L [id number], [id number] ####Mammal Keeper: UNA ARCE ([phone])[facility] (SBHLAB)[address] [place] [address] [place] LYMPHOCYTES/100 LEUKOCYTES IN BLOOD-CELLAVISION 10 % Low 15-45 [facility] Comment on above: Performed By: #### L [id number], [id number] ####Mammal Keeper: UNA ARCE ([id number])[facility]ALU[facility]ITAL[facility] (SBHLAB)[address] [place] [address] [place] METAMYELOCYTES TOTAL PER COUNTED LEUKOCYTES BY MANUAL COUNT Normal [facility] Comment on above: Performed By: #### L [id number], [id number] ####Mammal Keeper: UNA ARCE ([phone])[facility] [place] ([facility])[address] [place] [address] [place] MONOCYTES (10*3/UL) IN BLOOD-CELLAVISION 1.8 10*3/uL High 0.0-0.9 [facility] Comment on above: Performed By: #### L [id number], [id number] ####Mammal Keeper: UNA ARCE ([id number])[facility] [place] (SBHLAB)[address] [place] [address] [place] MONOCYTES TOTAL PER COUNTED LEUKOCYTES BY MANUAL COUNT 13 Normal [facility] Comment on above: Performed By: #### L [id number], [id number] ####Mammal Keeper: UNA MOHRCER ([phone])[facility] [place] (SBHLAB)[address] [place] [address] [place] MONOCYTES/100 LEUKOCYTES IN BLOOD-LUCIANA 13 % Normal 5-13 [facility] Comment on above: Performed By: #### L [id number], [id number] ####Mammal Keeper: UNA MOHRCER ([id number])[facility] [place] ([facility])[address] MYELOCYTES COUNTED BY MANUAL COUNT Normal [facility] Comment on above: Performed By: #### L [id number], [id number] ####Mammal Keeper: UNA ARCE ([id number])[facility] [place] (SBHLAB)[address] [place] [address] [place] NEUTROPHILS TOTAL PER COUNTED LEUKOCYTES BY MANUAL COUNT 79 Normal [facility] Comment on above: Performed By: #### L [id number], [id number] ####Mammal Keeper: UNA ARCE ([phone])[facility] [place] ([facility])[address] [place] [address] [place] OVALOCYTES PRESENCE IN BLOOD BY LIGHT MICROSCOPY Slight Abnormal (none) [facility] Comment on above: Performed By: #### L [id number], [id number] ####Mammal Keeper: UNA MOHRCER ([phone])[facility] [place] (SBHLAB)[address] [place] [address] [place] POIKILOCYTOSIS (PRESENCE) IN BLOOD BY LIGHT MICROSCOPY Slight Abnormal (none) [facility] Comment on above: Performed By: #### L [id number], [id number] ####Mammal Keeper: UNA ARCE ([phone])[facility] [place] (SBHLAB)[address] [place] [address] [place] POLYCHROMASIA IN BLOOD BY LIGHT MICROSCOPY Slight Abnormal (none) [facility] Comment on above: Performed By: #### L [id number], [id number] ####Mammal Keeper: UNA ARCE ([phone])[facility] [place] ([facility])[address] [place] [address] [place] PROMYELOCYTES TOTAL PER COUNTED LEUKOCYTES BY MANUAL COUNT Normal [facility] Comment on above: Performed By: #### L [id number], [id number] ####Mammal Keeper: UNA ARCE ([phone])[facility] [place] (SB[facility])[address] [place] [address] [place] RBC MORPHOLOGY IN BLOOD abnormal Normal [facility] Comment on above: Performed By: #### L [id number], [id number] ####Mammal Keeper: UNA ARCE ([phone])[facility] [place] ([facility])[address] [place] [address] [place] SEGMENTED NEUTROPHILS (10*3/UL) IN BLOOD-CELLAVISION 10.5 10*3/uL High 1.8-7.5 [facility] Comment on above: Performed By: #### L [id number], [id number] ####Mammal Keeper: UNA ARCE ([phone])[facility] [place] ([facility])[address] [place] [address] [place] SEGMENTED NEUTROPHILS/100 LEUKOCYTES-CE 76 % Normal 38-82 [facility] Comment on above: Performed By: #### L [id number], [id number] ####Mammal Keeper: UNA ARCE ([id number])[facility] [place] ([facility])[address] [place] [address] [place] STOMATOCYTES IN BLOOD BY LIGHT MICROSCOPY Slight Abnormal (none) [facility] Comment on above: Performed By: #### L [id number], [id number] ####Mammal Keeper: UNA ARCE ([phone])[facility] [place] (SB[facility])[address] TARGET CELLS IN BLOOD BY LIGHT MICROSCOPY Slight Abnormal (none) [facility] Comment on above: Performed By: #### L [id number], [id number] ####Mammal Keeper: UNA ARCE ([phone])[facility] [place]LU[place] (SBHLAB)[address] UNCLASSIFIED CELLS TOTAL PER COUNTED LEUKOCYTES BY MANUAL COUNT Normal [facility] Comment on above: Performed By: #### L [id number], [id number] ####Mammal Keeper: UNA ARCE ([id number])[facility] [place] (SBHLAB)[address] VARIANT LYMPHOCYTES TOTAL PER COUNTED LEUKOCYTES BY MANUAL COUNT Normal [facility] Comment on above: Performed By: #### L [id number], [id number] ####Mammal Keeper: UNA ARCE ([phone])[facility] (SBHLAB)[address] Magnesium [Mass/Vol]on 04-11 [facility] No Panel Informationon 04-11 Basophils Manual 1 [facility] Eosinophils Manual 1 0 - 1 [facility] Interpretation and review of laboratory results Abnormal [facility] Lymphocytes Manual 10 [facility] Monocytes Manual 13 [facility] alth Neutrophils Manual 79 [facility] Interpretation and review of laboratory results Normal [facility] PHOSPHORUSon 04-11-2025 Phosphate [Mass/Vol] 2.5 mg/dL Normal 2.3-4.7 [facility] Comment on above: Performed By: #### L AB17, [id number], [id number] ####Mammal Keeper: UNA ARCE ([phone])[facility] LAURACHRISTINAN (SBHLAB)[address] [place] [address] [place] Phosphate [Moles/Vol]on Phosphate [Mass/Vol] 2.5 mg/dL 2.3 - 4 .7 mg/dL [facility] Progress Noteon 04-11-2025 Progress Note Normal [facility] Progress Note Normal [facility] Progress Note Normal [facility] Progress Note Normal [facility] XR Chest Single viewon 04-11 [facility] Radiology Study observation (narrative) Lynette ander XR Chest Single viewOrdered By: Katalina Corona on 04-11-2025 [facility] Work Phone: [phone] 04-10-2025 [id number] Normal [facility] CBC W Auto Differential pane l (Bld)on 04-10-2025 Erythrocyte distribution width (RBC) [Ratio] 22.9 % High 11.5 - 15.0 % [facility] Hematocrit (Bld) [Volume fraction] 26.1 % Low 40.0 - 52.0 % [facility] Hemoglobin (Bld) [Mass/Vol] 7.2 g/dL Low 13.0 - 18.0 g/dL [facility] Interpretation and review of laboratory results Abnormal [facility] MCH (RBC) [Entitic mass] 22.6 pg Low 26. 0 - 34.0 pg [facility] MCHC (RBC) [Mass/Vol] 27.6 % Low 30.5 - 36.0 % [facility] MCV (RBC) [Entitic vol] 82.1 fL 77.0 - 99.0 fL [facility] Platelet mean volume (Bld) [Entitic vol] 9.1 fL 9.0 - 12.7 fL [facility] Platelets (Bld) [#/Vol] 294 10*3/uL 140 - 440 10*3/uL [facility] RBC (Bld) [#/Vol] 3.18 10*6/uL Low 4.40 - 5.9 0 10*6/uL [facility] WBC (Bld) [#/Vol] 12.4 10*3/uL High 3.6 - 10.7 10*3/uL [facility] CBC WITH AUTO DIFFERENTIALon 04-10-2025 Erythrocyte distribution width (RBC) [Ratio] 22.9 % High 11.5-15.0 [facility] Comment on above: Performed By: #### L [id number], [id number] ####Mammal Keeper: UNA ARCE ([phone])[facility] [place] (SBAB)[address] Hematocrit (Bld) [Volume fraction] 26.1 % Low 40.0-52.0 [facility] Comment on above: Performed By: #### L [id number], [id number] ####Mammal Keeper: UNA ARCE ([phone])[facility] (SBHLAB)[address] Hemoglobin (Bld) [Mass/Vol] 7.2 g/dL Low 13.0-18.0 [facility] Comment on above: Performed By: #### L [id number], [id number] ####Mammal Keeper: UNA ARCE ([id number])[facility] [place] (SB[facility])[address] MCH (RBC) [Entitic mass] 22.6 pg Low 26.0-34.0 [facility] Comment on above: Performed By: #### L [id number], [id number] ####Mammal Keeper: UNA ARCE ([phone])[facility] [place] (SBHLAB)[address] MCHC 27.6 % Low 30.5-36.0 [facility] Comment on above: Performed By: #### L [id number], [id number] ####Mammal Keeper: UNA ARCE ([phone])[facility] [place] (SBHLAB)[address] MCV (RBC) [Entitic vol] 82.1 fL Normal 77.0-99.[address] [facility] Comment on above: Performed By: #### L [id number], [id number] ####Mammal Keeper: UNA ARCE ([id number])[facility] BARBGUADALUPE COUNTY HOSPITALMarisol (SBHLAB)[address] Platelet mean volume (Bld) [Entitic vol] 9.1 fL Normal 9.0-12.7 [facility] Comment on above: Performed By: #### L [id number], [id number] ####Mammal Keeper: UNA ARCE ([id number])LYNETTE SANCHEZCHRISTINAN (SBHLAB)[address] Platelets (Bld) [#/Vol] 294 10*3/uL Normal 140-440 [facility] Comment on above: Performed By: #### L [id number], [id number] ####Mammal Keeper: UNA ARCE ([id number])[facility] [place] (SBHLAB)[address] RBC (Bld) [#/Vol] 3.18 10*6/uL Low 4.40-5.90 [facility] Comment on above: Performed By: #### L [id number], [id number] ####Mammal Keeper: UNA ARCE ([id number])[facility] [place] (SBHLAB)[address] WBC (Bld) [#/Vol] 12.4 10*3/uL High 3.6-10.7 [facility] Comment on above: Performed By: #### L [id number], [id number] ####Mammal Keeper: UNA ARCE ([phone])[facility] [place] (SBHLAB)[address] COMPREHENSIVE METABOLIC PANE Anant 04-10-2025 Albumin [Mass/Vol] 2.2 g/dL Low 3.4-4.8 [facility] Comment on above: Performed By: #### L ABTerrance, LAB17, [id number] ####Mammal Keeper: UNA ARCE ([id number])[facility] [place] ([facility])[address] ALP [Catalytic activity/Vol] 50 U/L Normal 40-150 [facility] Comment on above: Performed By: #### L AB113, LAB17, [id number] ####Mammal Keeper: UNA ARCE ([id number])[facility] [place] (SB[facility])[address] ALT [Catalytic activity/Vol] U/L Normal <40 [facility] Comment on above: Performed By: #### L ABTerrance, LAB17, [id number] ####Mammal Keeper: UNA ARCE ([id number])[facility] [place] (SB[facility])[address] Anion gap [Moles/Vol] 12 mmol/L Normal 3-13 [facility] Comment on above: Performed By: #### Gilbert ABTerrance, LAB17, [id number] ####Mammal Keeper: UNA ARCE ([phone])[facility] [place] ([facility])[address] AST [Catalytic activity/Vol] 16 U/L Normal <34 [facility] Comment on above: Performed By: #### Gilbert ABTerrance, LAB17, IKE909 ####Mammal Keeper: UNA ARCE ([phone])[facility] [place] (SB[facility])[address] Bilirubin [Mass/Vol] 0.6 mg/dL Normal <1.2 [facility] Comment on above: Performed By: #### Gilbert RAMSEY, LAB17, [id number] ####Mammal Keeper: UNA ARCE ([phone])[facility] [place] (SB[facility])[address] Calcium [Mass/Vol] 8.0 mg/dL Low 8.8-10.0 [facility] Comment on above: Performed By: #### Gilbert RAMSEY, LAB17, [id number] ####Mammal Keeper: UNA ARCE ([id number])[facility] [place] ([facility])[address] [place] [address] [place] Chloride [Moles/Vol] 95 mmol/L Low 98-107 [facility] Comment on above: Performed By: #### L ABTerrance, LAB17, [id number] ####Mammal Keeper: UNA ARCE ([phone])[facility] [place] ([facility])[address] [place] [address] [place] CO2 [Moles/Vol] 35 mmol/L High 23-31 [facility] Comment on above: Performed By: #### L AB113, LAB17, GXQ653 ####Mammal Keeper: UNA ARCE ([phone])[facility] B[place]N (SBHLAB)[address] Creatinine [Mass/Vol] 1.65 mg/dL High 0.72-1.25 [facility] Comment on above: Performed By: #### L ABTerrance, LAB17, VSA174 ####Mammal Keeper: UNA ARCE ([phone])[facility] [place] (SBHLAB)[address] GLOMERULAR FILTRATION RATE ML/MIN/1.73 SQ M.PREDICTED 39.4 mL/min/1.73m*2 Low >60.0 [facility] Comment on above: Result Comment: Calc ulation based on the Chronic Kidney Disease Epidemiology Collaboration (CKD-EPI) equation refit without adjustment for race Performed By: #### Gilbert ABTerrance, LAB17, VES787 ####Mammal Keeper: UNA ARCE ([phone])[facility] [place] (SB[place])[address] Glucose [Mass/Vol] 98 mg/dL Normal 82-115 [facility] Comment on above: Performed By: #### Gilbert AB113, LAB17, IYD631 ####Mammal Keeper: UNA ARCE ([id number])[facility] SANCHEZCHRISTINAN (SBHLAB)[address] [place] [address] [place] Potassium [Moles/Vol] 3.2 mmol/L Low 3.5-5.1 [facility] Comment on above: Result Comment: [facility] potassium values may be up to 0.5 mmol/L lower than serum values. Performed By: #### L AB113, LAB17, [id number] ####Mammal Keeper: UNA ARCE ([phone])[facility] [place] (SBHLAB)[address] Protein [Mass/Vol] 5.5 g/dL Low 6.4-8.3 [facility] Comment on above: Performed By: #### L AB113, LAB17, [id number] ####Mammal Keeper: UNA YAZMIN ([id number])[facility] [place] (SBHLAB)[address] Sodium [Moles/Vol] 142 mmol/L Normal 136-145 [facility] Comment on above: Performed By: #### Gilbert ABTerrance, LAB17, [id number] ####Mammal Keeper: UNA YAZMIN ([phone])[facility] SANCHEZGUADALUPE COUNTY HOSPITALN (SBHLAB)[address] Urea nitrogen [Mass/Vol] 32 mg/dL High 9-23 [facility] Comment on above: Performed By: #### Gilbert RAMSEY, LAB17, [id number] ####Mammal Keeper: UNA ARCE ([phone])[facility] SANCHEZENCOMPASS [facility] (SBHLAB)[address] Comprehensive metabolic 1998 panelon 04-10-2025 Albumin [Mass/Vol] 2.2 g/dL Low 3.4 - 4.8 g/dL [facility] ALP [Catalytic activity/Vol] 50 U/L 40 - 150 U/L [facility] ALT [Catalytic activity/Vol] U/[facility]/L [facility] Anion gap [Moles/Vol] 12 mmol/L 3 - 13 mmol/L [facility] AST [Catalytic activity/Vol] 16 U/L [facility] - [facility] U/L [facility] Bilirubin [Mass/Vol] 0.6 mg/dL NINF - 1.2 mg/dL [facility] Calcium [Mass/Vol] 8 mg/dL Low 8.8 - 10. 0 mg/dL [facility] Chloride [Moles/Vol] 95 mmol/L Low 98 - 10 7 mmol/L [facility] CO2 [Moles/Vol] 35 mmol/L High 23 - 31 mmol/L [facility] Creatinine [Mass/Vol] 1.65 mg/dL High 0.72 - 1.25 mg/dL [facility] GFR/1.73 sq M.predicted (S/P/Bld) [Vol rate/Area] 39.4 mL/min Low - PINF [facility] Glucose [Mass/Vol] 98 mg/dL 82 - 115 mg/dL [facility] Interpretation and review of laboratory results Abnormal [facility] Potassium [Moles/Vol] 3.2 mmol/L Low 3.5 - 5.1 mmol/L [facility] Protein [Mass/Vol] 5.5 g/dL Low 6.4 - 8.3 g/dL [facility] Sodium [Moles/Vol] 142 mmol/L 136 - 145 mmol/L [facility] Urea nitrogen [Mass/Vol] 32 mg/dL High 9 - 23 mg/d L [facility] Laboratory - Chemistry and C hemistry - challengeon 04-10-2025 Magnesium [Mass/Vol] 1.7 mg/dL 1.6 - 2 .6 mg/dL [facility] Laboratory - Hematology and Cell countson 04-10-2025 Anisocytosis Ql (Bld) Slight Abnormal (none) [facility] Band form neutrophils (Bld) [#/Vol] 0.2 10*3/uL High NINF - 0.0 10*3/uL [facility] Band form neutrophils/100 WBC (Bld) 2 % High NINF - 0 % [facility] Basophils (Bld) [#/Vol] 0.5 10*3/uL High 0.0 - 0.2 10*3/uL [facility] Basophils/100 WBC (Bld) 4 % High 0 - 2 % [facility] Eosinophils (Bld) [#/Vol] 0.5 10*3/uL 0.0 - 0.5 10*3/uL [facility] Eosinophils/100 WBC (Bld) 4 % 0 - 6 % [facility] Lymphocytes (Bld) [#/Vol] 0.9 10*3/uL Low 1.0 - 4.3 10*3/uL [facility] Lymphocytes/100 WBC (Bld) 7 % Low 15 - 45 % [facility] Monocytes (Bld) [#/Vol] 0.5 10*3/uL 0.0 - 0.9 10*3/uL [facility] Monocytes/100 WBC (Bld) 4 % Low 5 - 13 % [facility] Myelocytes (Bld) [#/Vol] 0.1 10*3/uL High SELENE F - 0.0 10*3/uL [facility] Myelocytes/100 WBC (Bld) 1 % High NINF - 0 % [facility] Neutrophils (Bld) [#/Vol] 9.9 10*3/uL High 1.8 - 7.5 10*3/uL [facility] Poikilocytosis LM Ql (Bld) Slight Abnormal (none) [facility] RBC morphology finding Nom (Bld) abnormal [facility] Segmented neutrophils/100 WBC (Bld) 78 % 38 - 82 % [facility] Stomatocytes LM Ql (Bld) Moderate Abnormal (none) [facility] MAGNESIUMon 04-10-2025 Magnesium [Mass/Vol] 1.7 mg/dL Normal 1.6-2.6 [facility] Comment on above: Result Comment: YARELI R COMMENTS:Higher values can be expected in females during menses. Performed By: #### L AB113, LAB17, NYQ177 ####Mammal Keeper: UNA ARCE ([phone])[facility] ([facility])[address] [place] [address] MANUAL DIFFERENTIAL (CELLAVI BANDAR)on 04-10-2025 ANISOCYTOSIS PRESENCE IN BLOOD BY LIGHT MICROSCOPY Slight Abnormal (none) [facility] Comment on above: Performed By: #### L [id number], [id number] ####Mammal Keeper: UNA ARCE ([phone])[facility] [place] [address] BAND NEUTROPHILS TOTAL PER COUNTED LEUKOCYTES BY MANUAL COUNT 2 Normal [facility] Comment on above: Performed By: #### L [id number], [id number] ####Mammal Keeper: UNA ARCE ([id number])[facility] BARBGUADALUPE COUNTY HOSPITALN ([facility])[address] [place] [address] [place] BANDS (10*3/UL) IN BLOOD-CELLAVISION 0.2 10*3/uL High <=0.0 [facility] Comment on above: Performed By: #### L [id number], [id number] ####Mammal Keeper: UNA ARCE ([id number])[facility] ([facility])[address] [place] [address] [place] BASOPHILS (10*3/UL) IN BLOOD-CELLAVISION 0.5 10*3/uL High 0.0-0.2 [facility] Comment on above: Performed By: #### L [id number], [id number] ####Mammal Keeper: UNA ARCE ([id number])[facility] [place] (SBHLAB)[address] [place] [address] [place] BASOPHILS TOTAL PER COUNTED LEUKOCYTES BY MANUAL COUNT 4 Normal [facility] Comment on above: Performed By: #### L [id number], [id number] ####Mammal Keeper: UNA ARCE ([phone])[facility] [place] ([place])[address] [place] [address] [place] BASOPHILS/100 LEUKOCYTES IN BLOOD-CELLAVISION 4 % High 0-2 [facility] Comment on above: Performed By: #### L [id number], [id number] ####Mammal Keeper: UNA ARCE ([phone])[facility] [place] ([place])[address] BLASTS TOTAL PER COUNTED LEUKOCYTES BY MANUAL COUNT Comment on above: Performed By: #### L [id number], [id number] ####Mammal Keeper: UNA ARCE ([phone])[facility] [place] ([place])[address] [place] [address] [place] EOSINOPHILS (10*3/UL) IN BLOOD-CELLAVISION 0.5 10*3/uL Normal 0.0-0.5 [facility] Comment on above: Performed By: #### L [id number], [id number] ####Mammal Keeper: UNA ARCE ([phone])[facility] [place] ([place])[address] [place] [address] [place] EOSINOPHILS TOTAL PER COUNTED LEUKOCYTES BY MANUAL COUNT High 0-1 [facility] Comment on above: Performed By: #### L [id number], [id number] ####Mammal Keeper: UNA ARCE ([phone])[facility] [place] ([place])[address] [place] [address] [place] EOSINOPHILS/100 LEUKOCYTES IN BLOOD-CELLAVISION 4 % Normal 0-6 [facility] Comment on above: Performed By: #### L [id number], [id number] ####Mammal Keeper: UNA ARCE ([id number])[facility] [place] ([place])[address] LYMPHOCYTES (10*3/UL) IN BLOOD-CELLAVISION 0.9 10*3/uL Low 1.0-4.3 [facility] Comment on above: Performed By: #### L [id number], [id number] ####Mammal Keeper: UNA ARCE ([id number])[facility] [place] ([facility])[address] LYMPHOCYTES TOTAL PER COUNTED LEUKOCYTES BY MANUAL COUNT 7 Normal [facility] Comment on above: Performed By: #### L [id number], [id number] ####Mammal Keeper: UNA ARCE ([id number])[facility] [place] ([facility])[address] [place] [address] [place] LYMPHOCYTES/100 LEUKOCYTES IN BLOOD-CELLAVISION 7 % Low 15-45 [facility] Comment on above: Performed By: #### L [id number], [id number] ####Mammal Keeper: UNA ARCE ([phone])[facility] ([facility] METAMYELOCYTES TOTAL PER COUNTED LEUKOCYTES BY MANUAL COUNT Comment on above: Performed By: #### L [id number], [id number] ####Mammal Keeper: UNA ARCE ([id number])[facility] [place] ([facility])[address] [place] [address] [place] MONOCYTES (10*3/UL) IN BLOOD-CELLAVISION 0.5 10*3/uL Normal 0.0-0.9 [facility] Comment on above: Performed By: #### L [id number], [id number] ####Mammal Keeper: UNA ARCE ([phone])[facility] [place] (SBHLAB)[address] [place] [address] [place] MONOCYTES TOTAL PER COUNTED LEUKOCYTES BY MANUAL COUNT 4 Normal [facility] Comment on above: Performed By: #### L [id number], [id number] ####Mammal Keeper: UNA ARCE ([phone])[facility] [place] (SBHLAB)[address] [place] [address] [place] MONOCYTES/100 LEUKOCYTES IN BLOOD-LUCIANA 4 % Low 5-13 [facility] Comment on above: Performed By: #### L [id number], [id number] ####Mammal Keeper: UNA ARCE ([phone])[facility] [place] (SBHLAB)[address] [place] [address] [place] MYELOCYTES (10*3/UL) IN BLOOD-CELLAVISION 0.1 10*3/uL High <=0.0 [facility] Comment on above: Performed By: #### L [id number], [id number] ####Mammal Keeper: UNA ARCE ([phone])[facility] [place] (SBHLAB)[address] [place] [address] [place] MYELOCYTES COUNTED BY MANUAL COUNT 1 Normal [facility] Comment on above: Performed By: #### L [id number], [id number] ####Mammal Keeper: UNA ARCE ([phone])[facility] [place] ([facility])[address] [place] [address] [place] MYELOCYTES/100 LEUKOCYTES IN BLOOD-CELLAVISION 1 % High <=0 [facility] Comment on above: Performed By: #### L [id number], [id number] ####Mammal Keeper: UNA ARCE ([phone])[facility] (SBHLAB)[address] [place] [address] [place] NEUTROPHILS BAND FORM/100 LEUKOCYTES IN BLOOD-CELLAVISI 2 % High <=0 [facility] Comment on above: Performed By: #### L [id number], [id number] ####Mammal Keeper: UNA ARCE ([phone])[facility] ([facility]HL[facility])[address] [place] [address] [place] NEUTROPHILS TOTAL PER COUNTED LEUKOCYTES BY MANUAL COUNT 79 Normal [facility] Comment on above: Performed By: #### L [id number], [id number] ####Mammal Keeper: UNA ARCE ([phone])[facility] [place] ([facility])[address] [place] [address] [place] POIKILOCYTOSIS (PRESENCE) IN BLOOD BY LIGHT MICROSCOPY Slight Abnormal (none) [facility] Comment on above: Performed By: #### L [id number], [id number] ####Mammal Keeper: UNA ARCE ([id number])[facility] [place] ([facility])[address] PROMYELOCYTES TOTAL PER COUNTED LEUKOCYTES BY MANUAL COUNT Normal [facility] Comment on above: Performed By: #### L [id number], [id number] ####Mammal Keeper: UNA ARCE ([id number])[facility] [place] ([facility])[address] [place] [address] [place] RBC MORPHOLOGY IN BLOOD abnormal Normal [facility] Comment on above: Performed By: #### L [id number], [id number] ####Mammal Keeper: UNA ARCE ([phone])[facility] [place] ([facility])[address] [place] [address] [place] SEGMENTED NEUTROPHILS (10*3/UL) IN BLOOD-CELLAVISION 9.9 10*3/uL High 1.8-7.5 [facility] Comment on above: Performed By: #### L [id number], [id number] ####Mammal Keeper: UNA ARCE ([phone])[facility] [place] ([facility])[address] [place] [address] [place] SEGMENTED NEUTROPHILS/100 LEUKOCYTES-CE 78 % Normal 38-82 [facility] Comment on above: Performed By: #### L [id number], [id number] ####Mammal Keeper: UNA ARCE ([phone])[facility] [place] ([facility])[address] [place] [address] [place] STOMATOCYTES IN BLOOD BY LIGHT MICROSCOPY Moderate Abnormal (none) [facility] Comment on above: Performed By: #### L [id number], [id number] ####Mammal Keeper: UNA ARCE ([phone])[facility] (SBHL[facility])[address] UNCLASSIFIED CELLS TOTAL PER COUNTED LEUKOCYTES BY MANUAL COUNT Normal [facility] Comment on above: Performed By: #### L [id number], [id number] ####Mammal Keeper: UNA ARCE ([phone])[facility] (HLAB)[address] VARIANT LYMPHOCYTES TOTAL PER COUNTED LEUKOCYTES BY MANUAL COUNT Normal [facility] Comment on above: Performed By: #### L [id number], [id number] ####Mammal Keeper: UNA ARCE ([phone])[facility] (HLAB)[address] [place] [address] [place] Magnesium [Mass/Vol]on 04-10 [facility] No Panel Informationon 04-10 Bands Manual 2 [facility] Basophils Manual 4 [facility]th Eosinophils Manual 4 High 0 - 1 [facility] Interpretation and review of laboratory results Abnormal [facility] Lymphocytes Manual 7 [facility] Monocytes Manual 4 [facility] Myelocytes Manual 1 [facility] H ealth Neutrophils Manual 79 [facility] Interpretation and review of laboratory results Normal [facility] PHOSPHORUSon 04-10-2025 Phosphate [Mass/Vol] 2.6 mg/dL Normal 2.3-4.7 [facility] Comment on above: Performed By: #### L AB113, LAB17, VON709 ####Mammal Keeper: UNA ARCE ([id number])[facility] (SBHLAB)[address] [place] [address] [place] Phosphate [Moles/Vol]on Phosphate [Mass/Vol] 2.6 mg/dL 2.3 - 4 .7 mg/dL [facility] Progress Noteon 04-10-2025 Progress Note Normal [facility] Progress Note Normal [facility] Progress Note Normal [facility] Progress Note Will assume care as patient is being transferred out of ICU. D/w Dr Lewis via secure chat Normal [facility] Progress Note Normal [facility] Progress Note Normal [facility] [id number] 04-09-2025 [id number] Normal [facility] [id number] Normal [facility] BODY FLUID CELL COUNT WITH R EFLEX DIFFon 04-09-2025 RBC, BODY FLUID (AUTOMATED) <0.002 High 0.000 [facility] Comment on above: Performed By: #### L [id number], [id number] ####Mammal Keeper: UNA ARCE ([phone])[facility] (SBHLAB)[address] [place] [address] WBC, BODY FLUID (AUTOMATED) 0.341 x10*3/ul High <=0.005 [facility] Comment on above: Performed By: #### L [id number], [id number] ####Mammal Keeper: UNA ARCE ([phone])[facility] (SBHLAB)[address] [place] [address] RBC, BODY FLUID (AUTOMATED) <0.002 High 0.000 [facility] Comment on above: Performed By: #### L [id number], RDH625 ####Mammal Keeper: UNA ARCE ([phone])[facility] (SBHLAB)[address] [place] [address] WBC, BODY FLUID (AUTOMATED) 0.112 x10*3/ul High <=0.005 [facility] Comment on above: Performed By: #### L [id number], OWW801 ####Mammal Keeper: UNA ARCE ([phone])[facility] (SBHLAB)[address] [place] [address] BODY FLUID DIFFERENTIALon CELLS COUNTED TOTAL (#) IN BODY FLUID 100 Normal [facility] Comment on above: Performed By: #### L [id number], [id number] ####Mammal Keeper: UNA ARCE ([id number])[facility] (SB[facility])[address] [place] [address] [place] LYMPHOCYTES/100 LEUKOCYTES IN BODY FLUID BY MAN CT 51 % Normal [facility] Comment on above: Performed By: #### L [id number], RWE640 ####Mammal Keeper: UNA ARCE ([phone])[facility] (SBHLAB)[address] [place] [address] [place] MONOCYTES+MACROPHAGES/10 0 WBC IN BODY FLUID BY MAN CT 36 % Normal [facility] Comment on above: Performed By: #### L [id number], ZBN276 ####Mammal Keeper: UNA ARCE ([id number])[facility] (SBHLAB)[address] [place] [address] [place] Neutrophils/100 WBC (Bld) 13 % Normal [facility] Comment on above: Performed By: #### L [id number], NSB785 ####Mammal Keeper: UNA ARCE ([phone])[facility] (SBHLAB)[address] [place] [address] [place] CELLS COUNTED TOTAL (#) IN BODY FLUID 100 Normal [facility] Comment on above: Performed By: #### L [id number], OEH091 ####Mammal Keeper: UNA ARCE ([id number])[facility] (SBHLAB)[address] [place] [address] [place] LYMPHOCYTES/100 LEUKOCYTES IN BODY FLUID BY MAN CT 31 % Normal [facility] Comment on above: Performed By: #### L [id number], FGW661 ####Mammal Keeper: UNA ARCE ([id number])[facility] (SBHLAB)[address] [place] [address] [place] MESOTHELIAL CELLS/100 LEUKOCYTES IN BODY FLUID BY MANUAL COUNT 2 % Normal [facility] Comment on above: Performed By: #### L [id number], UFF508 ####Mammal Keeper: UNA ARCE ([id number])[facility] (SBHLAB)[address] MONOCYTES+MACROPHAGES/10 0 WBC IN BODY FLUID BY MAN CT 37 % Normal [facility] Comment on above: Performed By: #### L SX0019, FSD712 ####Mammal Keeper: UNA ARCE ([phone])[facility] LAURAGUADALUPE COUNTY HOSPITALN (SBHLAB)[address] Neutrophils/100 WBC (Bld) 30 % Normal [facility] Comment on above: Performed By: #### L [id number], PBE122 ####Mammal Keeper: UNA ARCE ([phone])[facility] (SBHLAB)[address] CBC W Auto Differential pane l (Bld)Ordered By: Jg Sarabia on 04-09-2025 Erythrocyte distribution width (RBC) [Ratio] 21.8 % High 11.5 - 15.0 % Shahab P. Tabatabai, Broker [place] Hematocrit (Bld) [Volume fraction] 27.7 % Low 40.0 - 52.0 % [facility] [place] Hemoglobin (Bld) [Mass/Vol] 7.5 g/dL Low 13.0 - 18.0 g/dL [facility] [place] MCH (RBC) [Entitic mass] 22.6 pg Low 26. 0 - 34.0 pg [facility] [place] MCHC (RBC) [Mass/Vol] 27.1 % Low 30.5 - 36.0 % [facility] MCV (RBC) [Entitic vol] 83.4 fL 77.0 - 99.0 fL [facility] Ajaline Platelet mean volume (Bld) [Entitic vol] 9.4 fL 9.0 - 12.7 fL [facility] [place] Platelets (Bld) [#/Vol] 279 10*3/uL 140 - 440 10*3/uL [facility] [place] RBC (Bld) [#/Vol] 3.32 10*6/uL Low 4.40 - 5.9 0 10*6/uL [facility] [place] WBC (Bld) [#/Vol] 11.2 10*3/uL High 3.6 - 10.7 10*3/uL [facility] [place] CBC WITH AUTO DIFFERENTIALon 04-09-2025 Erythrocyte distribution width (RBC) [Ratio] 21.8 % High 11.5-15.0 [facility] Comment on above: Performed By: #### L [id number], [id number] ####Mammal Keeper: UNA ARCE ([id number])[facility]ANCHEZLUIS (SBHLAB)[address] Hematocrit (Bld) [Volume fraction] 27.7 % Low 40.0-52.0 [facility] Comment on above: Performed By: #### L [id number], [id number] ####Mammal Keeper: UNA ARCE ([id number])[facility]ITALAngel [facility] HOSPITALMarisol (SBHLAB)[address] Hemoglobin (Bld) [Mass/Vol] 7.5 g/dL Low 13.0-18.0 [facility] Comment on above: Performed By: #### L [id number], [id number] ####Mammal Keeper: UNA ARCE ([phone])[facility]ITALAngel SANCHEZCHRISTINAN (SBHLAB)[address] MCH (RBC) [Entitic mass] 22.6 pg Low 26.0-34.0 [facility] Comment on above: Performed By: #### L [id number], [id number] ####Mammal Keeper: UNA ARCE ([id number])[facility]ITALAngel SANCHEZGUADALUPE COUNTY HOSPITALMarisol (SBHLAB)[address] MCHC 27.1 % Low 30.5-36.0 [facility] Comment on above: Performed By: #### L [id number], [id number] ####Mammal Keeper: UNA ARCE ([id number])[facility]ITALAngel SANCHEZGUADALUPE COUNTY HOSPITALN (SBHLAB)[address] MCV (RBC) [Entitic vol] 83.4 fL Normal 77.0-99.0 [facility] Comment on above: Performed By: #### L [id number], [id number] ####Mammal Keeper: UNA ARCE ([phone])[facility]A LAURACHRISTINAN (SBHLAB)[address] Platelet mean volume (Bld) [Entitic vol] 9.4 fL Normal 9.0-12.7 [facility] Comment on above: Performed By: #### L [id number], [id number] ####Mammal Keeper: UNA ARCE ([id number])MONISHAA MCKAYN (SBHLAB)[address] Platelets (Bld) [#/Vol] 279 10*3/uL Normal 140-440 [facility] Comment on above: Performed By: #### L [id number], TTC5166 ####Mammal Keeper: UNA ARCE ([phone])[facility] MCKAYN (SBHLAB)[address] RBC (Bld) [#/Vol] 3.32 10*6/uL Low 4.40-5.90 [facility] Comment on above: Performed By: #### L [id number], [id number] ####Mammal Keeper: UNA ARCE ([phone])[facility] HOSPITALAngle SANCHEZGUADALUPE COUNTY HOSPITALN (SBHLAB)[address] WBC (Bld) [#/Vol] 11.2 10*3/uL High 3.6-10.7 [facility] Comment on above: Performed By: #### L [id number], [id number] ####Mammal Keeper: UNA ARCE ([id number])[facility]A BARBGUADALUPE COUNTY HOSPITALN (SBHLAB)[address] COMPREHENSIVE METABOLIC PANE Anant 04-09-2025 Albumin [Mass/Vol] 2.2 g/dL Low 3.4-4.8 [facility] Comment on above: Performed By: #### L AB103, DJE288, LAB17 ####Mammal Keeper: UNA ARCE ([id number])[facility]A LAURAGUADALUPE COUNTY HOSPITALN (SBHLAB)[address] ALP [Catalytic activity/Vol] 56 U/L Normal 40-150 [facility] Comment on above: Performed By: #### L AB103, TWT304, LAB17 ####Mammal Keeper: UNA ARCE ([phone])[facility]ITALAngel ESCOTO (SBHLAB)[address] ALT [Catalytic activity/Vol] U/L Normal <40 [facility] Comment on above: Performed By: #### L AB103, EML634, LAB17 ####Mammal Keeper: UNA ARCE ([id number])[facility]ITALAngel SANCHEZGUADALUPE COUNTY HOSPITALN (SBHLAB)[address] Anion gap [Moles/Vol] 10 mmol/L Normal 3-13 [facility] Comment on above: Performed By: #### L AB103, EWG938, LAB17 ####Mammal Keeper: UNA ARCE ([phone])[facility] (SBHLAB)[address] AST [Catalytic activity/Vol] 18 U/L Normal <34 [facility] Comment on above: Performed By: #### L AB103, TXE110, LAB17 ####Mammal Keeper: UNA ARCE ([id number])[facility] (SBHLAB)[address] Bilirubin [Mass/Vol] 0.7 mg/dL Normal <1.2 [facility] Comment on above: Performed By: #### L AB103, SOY017, LAB17 ####Mammal Keeper: UNA ARCE ([phone])[facility] ([facility])[address] Calcium [Mass/Vol] 8.1 mg/dL Low 8.8-10.0 [facility] Comment on above: Performed By: #### L AB103, XYL097, LAB17 ####Mammal Keeper: UNA ARCE ([phone])[facility]ITALAngel SANCHEZGUADALUPE COUNTY HOSPITALN (SBHLAB)[address] Chloride [Moles/Vol] 98 mmol/L Normal 98-107 [facility] Comment on above: Performed By: #### L AB103, HCV005, LAB17 ####Mammal Keeper: UNA YAZMIN ([phone])[facility] (SBHLAB)[address] CO2 [Moles/Vol] 34 mmol/L High 23-31 [facility] Comment on above: Performed By: #### L AB103, DIL046, LAB17 ####Mammal Keeper: UNA BERMUDEZPEDRO ([phone])[facility] (SBHLAB)[address] Creatinine [Mass/Vol] 1.53 mg/dL High 0.72-1.25 [facility] Comment on above: Performed By: #### L AB103, NWR245, LAB17 ####Mammal Keeper: UNA BERMUDEZPEDRO ([phone])[facility] ([facility])[address] GLOMERULAR FILTRATION RATE ML/MIN/1.73 SQ M.PREDICTED 43.2 mL/min/1.73m*2 Low >60.0 [facility] Comment on above: Result Comment: Calc ulation based on the Chronic Kidney Disease Epidemiology Collaboration (CKD-EPI) equation refit without adjustment for race Performed By: #### L AB103, RVU408, LAB17 ####Mammal Keeper: UNA STAUFFERMELANIE ([id number])[facility] ([facility])[address] Glucose [Mass/Vol] 90 mg/dL Normal 82-115 [facility] Comment on above: Performed By: #### L AB103, CXD846, LAB17 ####Mammal Keeper: UNA BERMUDEZPEDRO ([phone])[facility] ([facility])[address] Potassium [Moles/Vol] 3.5 mmol/L Normal 3.5-5.1 [facility] Comment on above: Result Comment: [facility] potassium values may be up to 0.5 mmol/L lower than serum values. Performed By: #### L AB103, TDX009, LAB17 ####Mammal Keeper: UNAANJEL ARCE ([phone])[facility]ITALAngel [place] (SBHLAB)[address] [place] [address] Protein [Mass/Vol] 5.7 g/dL Low 6.4-8.3 [facility] Comment on above: Performed By: #### L AB103, HJF584, LAB17 ####Mammal Keeper: UNA YAZMIN ([id number])[facility]ITALAngel [place] (SBHLAB)[address] Sodium [Moles/Vol] 142 mmol/L Normal 136-145 [facility] Comment on above: Performed By: #### L AB103, HZT294, LAB17 ####Mammal Keeper: UNAANJEL ARCE ([id number])[facility]ITALAngel [place] (SBHLAB)[address] [place] [address] Urea nitrogen [Mass/Vol] 25 mg/dL High 9-23 [facility] Comment on above: Performed By: #### L AB103, KOQ981, LAB17 ####Mammal Keeper: UNA YAZMIN ([id number])[facility]ITALAngel [place] (SBHLAB)[address] [place] [address] CULTURE ANAEROBICon 04-09-20 CULTURE ANAEROBIC [facility] Comment on above: Performed By: #### L AB233 ####Mammal Keeper: ANAHY AVILA ([phone])[facility] ([facility])[address] [place] [address] CULTURE ANAEROBIC Normal [facility] Comment on above: Performed By: #### L AB233 ####Mammal Keeper: ANAHY AVILA ([phone])[address] CULTURE, AEROBIC BACTERIA WI TH GRAM STAINon 04-09-2025 CULTURE, AEROBIC BACTERIA WITH GRAM STAIN Normal [facility] Comment on above: Performed By: #### L AB897 ####Mammal Keeper: ANAHY AVILA ([phone])[facility] (SACLAB)[address] [place] [address] CULTURE, AEROBIC BACTERIA WITH GRAM STAIN Normal [facility] Comment on above: Performed By: #### L AB897 ####Mammal Keeper: ANAHY AVILA ([phone])[facility] ([facility])[address] [place] [address] Comprehensive metabolic 1998 panelon 04-09-2025 Albumin [Mass/Vol] 2.2 g/dL Low 3.4 - 4.8 g/dL [facility] ALP [Catalytic activity/Vol] 56 U/L 40 - 150 U/L [facility] ALT [Catalytic activity/Vol] U/L NINF - 40 U/L [facility] Anion gap [Moles/Vol] 10 mmol/L 3 - 13 mmol/L [facility] AST [Catalytic activity/Vol] 18 U/[facility] U/L [facility] Bilirubin [Mass/Vol] 0.7 mg/dL NINF - 1.2 mg/dL [facility] Calcium [Mass/Vol] 8.1 mg/dL Low 8.8 - 10. 0 mg/dL [facility] Chloride [Moles/Vol] 98 mmol/L 98 - 10 7 mmol/L [facility] CO2 [Moles/Vol] 34 mmol/L High 23 - 31 mmol/L [facility] Creatinine [Mass/Vol] 1.53 mg/dL High 0.72 - 1.25 mg/dL [facility] GFR/1.73 sq M.predicted (S/P/Bld) [Vol rate/Area] 43.2 mL/min Low - PINF [facility] Glucose [Mass/Vol] 90 mg/dL 82 - 115 mg/dL [facility] Interpretation and review of laboratory results Abnormal [facility] Potassium [Moles/Vol] 3.5 mmol/L 3.5 - 5.1 mmol/L [facility] Protein [Mass/Vol] 5.7 g/dL Low 6.4 - 8.3 g/dL [facility] Sodium [Moles/Vol] 142 mmol/L 136 - 145 mmol/L [facility] Urea nitrogen [Mass/Vol] 25 mg/dL High 9 - 23 mg/d L [facility] Consulton 04-09-2025 Consult Normal [facility] GLUCOSE, BODY FLUIDon 2024 GLUCOSE, BODY FLUID 132 mg/dL Normal [facility] Comment on above: Performed By: #### L AB188, TUQ878, BUF051, UZC083 ####Mammal Keeper: ANAHY AVILA ([phone])[facility] [place] [address] GLUCOSE, BODY FLUID 92 mg/dL Normal [facility] Comment on above: Performed By: #### L AB196, QBG853, YFT307, HTQ141 ####Mammal Keeper: ANAHY AVILA ([phone])[facility] ([facility])[address] [place] [address] LACTATE DEHYDROGENASEon LDH [Catalytic activity/Vol] 181 U/L Normal 125-220 [facility] Comment on above: Performed By: #### L AB118, LAB96 ####Mammal Keeper: UNA ARCE ([phone])[facility] (SBHLAB[address] LACTATE DEHYDROGENASE, BODY FLUIDon 04-09-2025 LACTATE DEHYDROGENASE, BODY FLUID BY LAC->PYR 95 U/L Normal [facility] Comment on above: Performed By: #### L AB188, BXF889, QHB343, VWB056 ####Mammal Keeper: ANAHY AVILA ([phone])[facility] ([facility])[address] [place] [address] LACTATE DEHYDROGENASE, BODY FLUID BY LAC->PYR 95 U/L Normal [facility] Comment on above: Performed By: #### L AB196, BOL109, VUA750, BJM617 ####Mammal Keeper: ANAHY AVILA ([phone])[facility])[address] [place] [address] TYPE OF BODY FLUID Pleural Fluid Normal [facility] Comment on above: Result Comment: YARELI [place] COMMENTS:This test was developed and its performance characteristics determined by [facility]. It has not been cleared or approved by the [place] Food and Drug Administration. This test was performed in a CLIA certified laboratory and is intended for clinical purposes.Exudates are defined as meeting one of the following criteria: (a) Pleural xlhvp-as-nbend protein ratio of >0.5, (b) pleural lmowp-wc-hhzpw LDH ratio of >0.6, or (c)a pleural fluid LDH activity that is >2/3 the upper limit of a normal serum LDH activity (Light???s criteria). Performed By: #### L AB196, EIF547, RID587, PHQ651 ####Mammal Keeper: ANAHY AVILA ([phone])[facility] ([facility])[address] [place] [address] Result Comment: ORDE R COMMENTS:This test was developed and its performance characteristics determined by [facility]. It has not been cleared or approved [...] developed and its performance characteristics determined by [facility]. It has not been cleared or approved by the [place] Food and Drug Administration. This test was performed in a CLIA certified laboratory and is intended for clinical purposes.Pleural azcyn-af-siyru protein ratio of >0.5 is one of Light???s criteria for an exudate. Heart failure associated misclassifications (by Light???s criteria) may be differentiated as transudative effusions by subsequently evaluating a fjsjd-ph-ixhbqwi albumin gradient (>1.2 g/dL) and/or a biwjv-jc-ebiyi protein gradient (>3.1 g/dL). Result Comment: ORDE R COMMENTS:This test was developed and its performance characteristics determined by [facility]. It has not been cleared or approved by the US Food and Drug Administration. This test was performed in a CLIA certified laboratory and is intended for clinical purposes. Performed By: #### L QW1819, JFR799 ####Mammal Keeper: UNA ARCE ([phone])[facility] (SBHLAB)[address] [place] [address] LDH Lactate to pyruvate reac tion [Catalytic activity/Vol]on 04-09-2025 Interpretation and review of laboratory results Normal [facility] Laboratoryon 04-09-2025 Fluid Nom (Body fld) Pleural Fluid S [facility] Fluid Nom (Body fld) Pleural Fluid S [facility] Fluid Nom (Body fld) Pleural Fluid S [facility] Fluid Nom (Body fld) Pleural Fluid S [facility] Fluid Nom (Body fld) Pleural Fluid S [facility] Fluid Nom (Body fld) Pleural Fluid S [facility] Fluid Nom (Body fld) Pleural Fluid S [facility] LaboratoryOrdered By: Anne cadena on 04-09-2025 Fluid Nom (Body fld) Pleural Fluid S [facility] LaboratoryOrdered By: Rian Spann on 04-09-2025 Fluid Nom (Body fld) Pleural Fluid S [facility] Laboratory - Chemistry and C hemistry - challengeon 04-09-2025 LDH (Body fld) [Catalytic activity/Vol] 95 U/L [facility] Glucose (Body fld) [Mass/Vol] 132 mg/dL [facility] Protein (Body fld) [Mass/Vol] 2.3 g/dL [facility] pH (Body fld) 7.747 [pH] [facility] pH (Body fld) 7.688 [pH] [facility] Protein (Body fld) [Mass/Vol] 2.5 g/dL [facility] Glucose (Body fld) [Mass/Vol] 92 mg/dL [facility] LDH Lactate to pyruvate reaction [Catalytic activity/Vol] 181 U/L 125 - 220 U/L [facility] Protein [Mass/Vol] 5.9 g/dL Low 6.4 - 8.3 g/dL [facility] Magnesium [Mass/Vol] 1.7 mg/dL 1.6 - 2 .6 mg/dL [facility] Laboratory - Chemistry and C hemistry - challengeOrdered By: Anne Miles on 04-09-2025 LDH (Body fld) [Catalytic activity/Vol] 95 U/L [facility] Laboratory - Hematology and Cell countson 04-09-2025 Cells Counted Total (Body fld) [#] 100 [facility] Lymphocytes/100 WBC (Bld) 51 % [facility] Macrophages/100 WBC Manual cnt (Body fld) 36 % [facility] Neutrophils/100 WBC (Body fld) 13 % [facility] RBC Auto (Body fld) [#/Vol] High [facility] WBC (Body fld) [#/Vol] 0.341 10*3/uL High NINF [facility] Cells Counted Total (Body fld) [#] 100 [facility] Lymphocytes/100 WBC (Bld) 31 % [facility] Macrophages/100 WBC Manual cnt (Body fld) 37 % [facility] Mesothelial cells/100 WBC Manual cnt (Body fld) 2 % [facility] Neutrophils/100 WBC (Body fld) 30 % [facility] Anisocytosis Ql (Bld) Moderate Abnormal (none) [facility] Eosinophils (Bld) [#/Vol] 0.6 10*3/uL High 0.0 - 0.5 10*3/uL [facility] Eosinophils/100 WBC (Bld) 5 % 0 - 6 % [facility] Hypochromia Ql (Bld) Moderate Abnormal (none) [facility] Lymphocytes (Bld) [#/Vol] 0.8 10*3/uL Low 1.0 - 4.3 10*3/uL [facility] Lymphocytes/100 WBC (Bld) 7 % Low 15 - 45 % [facility] Monocytes (Bld) [#/Vol] 2 10*3/uL High 0.0 - 0.9 10*3/uL [facility] Monocytes/100 WBC (Bld) 18 % High 5 - 13 % [facility] Neutrophils (Bld) [#/Vol] 8 10*3/uL High 1.8 - 7.5 10*3/uL [facility] Poikilocytosis LM Ql (Bld) Slight Abnormal (none) [facility] Polychromasia LM Ql (Bld) Slight Abnormal (none) [facility] RBC morphology finding Nom (Bld) abnormal [facility] Segmented neutrophils/100 WBC (Bld) 71 % 38 - 82 % [facility] Stomatocytes LM Ql (Bld) Moderate Abnormal (none) [facility] Laboratory - Hematology and Cell countsOrdered By: Kyara Valles on 04-09-2025 RBC Auto (Body fld) [#/Vol] High [facility] WBC (Body fld) [#/Vol] 0.112 10*3/uL High NINF [facility] MAGNESIUMon 04-09-2025 Magnesium [Mass/Vol] 1.7 mg/dL Normal 1.6-2.6 [facility] Comment on above: Result Comment: YARELI [place] COMMENTS:Higher values can be expected in females during menses. Performed By: #### L [id number], [id number], [id number] ####Mammal Keeper: UNA ARCE ([id number])[facility] [place] ([facility])[address] MANUAL DIFFERENTIAL (CELLAVI BANDAR)on 04-09-2025 ANISOCYTOSIS PRESENCE IN BLOOD BY LIGHT MICROSCOPY Moderate Abnormal (none) [facility] Comment on above: Performed By: #### L [id number], [id number] ####Mammal Keeper: UNA ARCE ([id number])[facility] [place] ([facility])[address] BAND NEUTROPHILS TOTAL PER COUNTED LEUKOCYTES BY MANUAL COUNT Normal [facility] Comment on above: Performed By: #### L [id number], [id number] ####Mammal Keeper: UNA ARCE ([id number])[facility] [place] ([facility])[address] BASOPHILS TOTAL PER COUNTED LEUKOCYTES BY MANUAL COUNT Normal [facility] Comment on above: Performed By: #### L [id number], [id number] ####Mammal Keeper: UNA ARCE ([id number])[facility] [place] ([facility])[address] BLASTS TOTAL PER COUNTED LEUKOCYTES BY MANUAL COUNT Normal [facility] Comment on above: Performed By: #### L [id number], [id number] ####Mammal Keeper: UNA ARCE ([id number])[facility] [place] (SB[place])[address] EOSINOPHILS (10*3/UL) IN BLOOD-CELLAVISION 0.6 10*3/uL High 0.0-0.5 [facility] Comment on above: Performed By: #### L [id number], [id number] ####Mammal Keeper: UNA ARCE ([phone])[facility] [place] (SBHLAB)[address] [place] [address] [place] EOSINOPHILS TOTAL PER COUNTED LEUKOCYTES BY MANUAL COUNT 5 High 0-1 [facility] Comment on above: Performed By: #### L [id number], [id number] ####Mammal Keeper: UNA ARCE ([id number])[facility] [place] (SBHLAB)[address] [place] [address] [place] EOSINOPHILS/100 LEUKOCYTES IN BLOOD-CELLAVISION 5 % Normal 0-6 [facility] Comment on above: Performed By: #### L [id number], [id number] ####Mammal Keeper: UNA ARCE ([id number])[facility] [place] ([facility])[address] [place] [address] [place] HYPOCHROMIA (PRESENCE) IN BLOOD BY LIGHT MICROSCOPY Moderate Abnormal (none) [facility] Comment on above: Performed By: #### L [id number], [id number] ####Mammal Keeper: UNA ARCE ([id number])[facility] [place] ([facility])[address] [place] [address] [place] LYMPHOCYTES (10*3/UL) IN BLOOD-CELLAVISION 0.8 10*3/uL Low 1.0-4.3 [facility] Comment on above: Performed By: #### L [id number], [id number] ####Mammal Keeper: UNA ARCE ([id number])[facility] [place] ([facility])[address] [place] [address] [place] LYMPHOCYTES TOTAL PER COUNTED LEUKOCYTES BY MANUAL COUNT 7 Normal [facility] Comment on above: Performed By: #### L [id number], [id number] ####Mammal Keeper: UNA ARCE ([id number])[facility] [place] ([facility])[address] [place] [address] [place] LYMPHOCYTES/100 LEUKOCYTES IN BLOOD-CELLAVISION 7 % Low 15-45 [facility] Comment on above: Performed By: #### L [id number], [id number] ####Mammal Keeper: UNA ARCE ([phone])[facility] [place] ([facility])[address] [place] [address] [place] METAMYELOCYTES TOTAL PER COUNTED LEUKOCYTES BY MANUAL COUNT Comment on above: Performed By: #### L [id number], [id number] ####Mammal Keeper: UNA ARCE ([id number])[facility] [place] ([facility])[address] [place] [address] [place] MONOCYTES (10*3/UL) IN BLOOD-CELLAVISION 2.0 10*3/uL High 0.0-0.9 [facility] Comment on above: Performed By: #### L [id number], [id number] ####Mammal Keeper: UNA ARCE ([phone])[facility] [place] ([facility])[address] [place] [address] [place] MONOCYTES TOTAL PER COUNTED LEUKOCYTES BY MANUAL COUNT 19 Comment on above: Performed By: #### L [id number], [id number] ####Mammal Keeper: UNA ARCE ([phone])[facility] [place] ([facility])[address] [place] [address] [place] MONOCYTES/100 LEUKOCYTES IN BLOOD-LUCIANA 18 % High 5-13 [facility] Comment on above: Performed By: #### L [id number], [id number] ####Mammal Keeper: UNA ARCE ([id number])[facility] [place] ([facility])[address] [place] [address] [place] MYELOCYTES COUNTED BY MANUAL COUNT Comment on above: Performed By: #### L [id number], [id number] ####Mammal Keeper: UNA ARCE ([id number])[facility] [place] ([facility])[address] [place] [address] [place] NEUTROPHILS TOTAL PER COUNTED LEUKOCYTES BY MANUAL COUNT 77 Normal [facility] Comment on above: Performed By: #### L [id number], [id number] ####Mammal Keeper: UNA ARCE ([id number])[facility] [place] ([facility])[address] [place] [address] [place] POIKILOCYTOSIS (PRESENCE) IN BLOOD BY LIGHT MICROSCOPY Slight Abnormal (none) [facility] Comment on above: Performed By: #### L [id number], [id number] ####Mammal Keeper: UNA ARCE ([id number])[facility] [place] ([facility])[address] POLYCHROMASIA IN BLOOD BY LIGHT MICROSCOPY Slight Abnormal (none) [facility] Comment on above: Performed By: #### L [id number], [id number] ####Mammal Keeper: UNA STAUFFERMELANIE ([id number])[facility] [place] ([facility])[address] PROMYELOCYTES TOTAL PER COUNTED LEUKOCYTES BY MANUAL COUNT Normal [facility] Comment on above: Performed By: #### L [id number], [id number] ####Mammal Keeper: UNA ARCE ([phone])[facility] [place] ([facility])[address] [place] [address] [place] RBC MORPHOLOGY IN BLOOD abnormal Normal [facility] Comment on above: Performed By: #### L [id number], [id number] ####Mammal Keeper: UNA ARCE ([id number])[facility] [place] ([facility])[address] [place] [address] [place] SEGMENTED NEUTROPHILS (10*3/UL) IN BLOOD-CELLAVISION 8.0 10*3/uL High 1.8-7.5 [facility] Comment on above: Performed By: #### L [id number], [id number] ####Mammal Keeper: UNA ARCE ([id number])[facility] [place] ([facility])[address] [place] [address] [place] SEGMENTED NEUTROPHILS/100 LEUKOCYTES-CE 71 % Normal 38-82 [facility] Comment on above: Performed By: #### L [id number], [id number] ####Mammal Keeper: UNA BERMUDEZPEDRO ([id number])[facility] (SB[facility])[address] STOMATOCYTES IN BLOOD BY LIGHT MICROSCOPY Moderate Abnormal (none) [facility] Comment on above: Performed By: #### L [id number], [id number] ####Mammal Keeper: UNA BERMUDEZPEDRO ([id number])[facility] (SB[facility])[address] UNCLASSIFIED CELLS TOTAL PER COUNTED LEUKOCYTES BY MANUAL COUNT Normal [facility] Comment on above: Performed By: #### L [id number], [id number] ####Mammal Keeper: UNA STAUFFERMELANIE ([id number])[facility] (SB[facility])[address] VARIANT LYMPHOCYTES TOTAL PER COUNTED LEUKOCYTES BY MANUAL COUNT Normal [facility] Comment on above: Performed By: #### L [id number], [id number] ####Mammal Keeper: UNA BERMUDEZPEDRO ([id number])[facility] [place] (SBHLAB)[address] Magnesium [Mass/Vol]on 04-09 [facility] No Panel Informationon 04-09 [facility] Interpretation and review of laboratory results Abnormal [facility] Interpretation and review of laboratory results Abnormal [facility] Interpretation and review of laboratory results Normal [facility] Eosinophils Manual 5 High 0 - 1 [facility] Lymphocytes Manual 7 [facility] Monocytes Manual 19 [facility] Neutrophils Manual 77 [facility] No Panel InformationOrdered By: Anne Miles on 04-09-2025 [facility] No Panel InformationOrdered By: Kyara Valles on 04-09-2025 Interpretation and review of laboratory results Abnormal [facility] No Panel InformationOrdered By: Jg Sarabia on 04-09-2025 Interpretation and review of laboratory results Abnormal [facility] Nursing Noteon 04-09-2025 Nursing Note R thoracentesis complete pt tolerated well with minimal discomfort Normal [facility] Nursing Note L thoracentesis complete per Dr Lewis. Pt tolerated well with minimal discomfort Normal [facility] PH, BODY FLUIDon 04-09-2025 pH (Body fld) 7.747 [pH] Normal [facility] Comment on above: Performed By: #### L AB188, CEC643, JYH308, DSY518 ####Mammal Keeper: ANAHY AVILA ([id number])[facility] [place] [address] TYPE OF BODY FLUID Pleural Fluid Normal [facility] Comment on above: Result Comment: YARELI [place] COMMENTS:This test was developed and its performance characteristics determined by [employer]. It has not been cleared or approved by the [place] Food and Drug Administration. This test was performed in a CLIA certified laboratory and is intended for clinical purposes. Performed By: #### L AB188, [id number], MRD623, RJC093 ####Mammal Keeper: ANAHY AVILA ([phone])[facility] ([facility])[address] [place] [address] Result Comment: YARELI [place] COMMENTS:This test was developed and its performance characteristics determined by [facility]. It has not been cleared or approved [...] developed and its performance characteristics determined by [employer]. It has not been cleared or approved by the [place] Food and Drug Administration. This test was performed in a CLIA certified laboratory and is intended for clinical purposes.Pleural pilbr-vu-bnvqe protein ratio of >0.5 is one of Light???s criteria for an exudate. Heart failure associated misclassifications (by Light???s criteria) may be differentiated as transudative effusions by subsequently evaluating a ukcnc-iz-qsphhox albumin gradient (>1.2 g/dL) and/or a jzaqj-na-iddmy protein gradient (>3.1 g/dL). Result Comment: YARELI [place] COMMENTS:This test was developed and its performance characteristics determined by [facility]. It has not been cleared or approved by the US Food and Drug Administration. This test was performed in a CLIA certified laboratory and is intended for clinical purposes.Exudates are defined as meeting one of the following criteria: (a) Pleural bojiu-yr-alviw protein ratio of >0.5, (b) pleural zvtfa-mh-uwkpl LDH ratio of >0.6, or (c)a pleural fluid LDH activity that is >2/3 the upper limit of a normal serum LDH activity (Light???s criteria). Performed By: #### L [id number], [id number] ####Mammal Keeper: UNA ARCE ([id number])[facility] [place] [address] pH (Body fld) 7.688 [pH] Normal [facility] Comment on above: Performed By: #### L AB196, [id number], PXD035, MRK680 ####Mammal Keeper: ANAHY AVILA ([id number])[facility] ([facility])[address] [place] [address] PHOSPHORUSon 04-09-2025 Phosphate [Mass/Vol] 3.5 mg/dL Normal 2.3-4.7 [facility] Comment on above: Performed By: #### L AB103, [id number], LAB17 ####Mammal Keeper: UNA ARCE ([id number])[facility] [place] [address] PROTEIN BODY FLUIDon 025 PROTEIN, BODY FLUID 2.3 g/dL Normal [facility] Comment on above: Performed By: #### L AB188, NHR602, VKN723, GYE135 ####Mammal Keeper: ANAHY [id number])[facility] ([facility])[address] [place] [address] PROTEIN, BODY FLUID 2.5 g/dL Normal [facility] Comment on above: Performed By: #### L AB196, FVR950, [id number], BJG135 ####Mammal Keeper: ANAHY AVILA ([id number])[facility] ([facility])[address] [place] [address] [place] Phosphate [Moles/Vol]on Phosphate [Mass/Vol] 3.5 mg/dL 2.3 - 4 .7 mg/dL [facility] Progress Noteon 04-09-2025 Progress Note Normal [facility] Progress Note Normal [facility] Progress Note Normal [facility] Progress [facility] Normal [facility] Progress Note [facility] TOTAL PROTEINon 04-09-2025 Protein [Mass/Vol] 5.9 g/dL Low 6.4-8.3 [facility] Comment on above: Result Comment: Seru m protein values are higher than plasma values. Samples from recumbent persons are lower by up to 0.5 g/dL as compared to ambulatory persons. After 60 years values are lower by up to 0.2 g/dL. Performed By: #### L AB118, LAB96 ####Mammal Keeper: UNA ARCE ([phone])[facility] ([facility])[address] [place] [address] XR CHEST 1 VIEWon 04-09-2025 XR CHEST 1 VIEW [facility] XR Chest Single viewon 04-09 [facility] Radiology Study observation (narrative) [facility] Radiology Study observation (narrative) [facility] Radiology Study observation (narrative) [facility] XR Chest Single viewOrdered By: Gary Kay on 04-09-2025 [facility] Work Phone: XR Chest Single viewOrdered By: Sis Collins on 04-09-2025 [facility] Work Phone: XR Chest Single viewOrdered By: Kev Mattson on 04-09-2025 [facility] Work Phone: [phone] 04-08-2025 [id number] Attempted to insert garcía. Urojet injected. Unable to visualize meatus. Attempted x1 to insert garcía without success. Normal [facility] [id number] Normal [facility] [id number] 04-08-2025 [id number] Normal [facility] BLOOD GAS ARTERIALon 025 AMOUNT OF OXYGEN .40 Normal [facility] Comment on above: Performed By: #### L AB76 ####Mammal Keeper: UNA ARCE ([id number])[facility] [place] [address] Base excess Calc (Bld) [Moles/Vol] 11.2 mmol/L High -3.0-3.0 [facility] Comment on above: Performed By: #### L AB76 ####Mammal Keeper: UNA ARCE ([id number])[facility] ([facility])[address] [place] [address] CO2 [Moles/Vol] 41.2 mmol/L High 22.0-28.0 [facility] Comment on above: Performed By: #### L AB76 ####Mammal Keeper: UNA ARCE ([id number])[facility] ([facility])[address] [place] [address] HCO3 (Bld) [Moles/Vol] 38.9 mmol/L High 21.0-27.[address] [facility] Comment on above: Performed By: #### L AB76 ####Mammal Keeper: UNA ARCE ([phone])[facility] ([facility])[address] [place] [address] Hemoglobin (Bld) [Mass/Vol] 8.4 g/dL Low Screen only [facility] Comment on above: Performed By: #### L AB76 ####Mammal Keeper: UNA ARCE ([id number])[facility] [place] ([facility])[address] OXYGEN SATURATION (%) IN ARTERIAL BLOOD 97.0 % Normal 97.0-99.0 [facility] Comment on above: Performed By: #### L AB76 ####Mammal Keeper: UNA ARCE ([id number])[facility]BGUADALU[facility] (SBHL[facility])[address] PCO2 ARTERIAL 75.1 mm Hg High 35.0-48.0 [facility] Comment on above: Performed By: #### L AB76 ####Mammal Keeper: UNA ARCE ([id number])[facility] ([facility])[address] PH ARTERIAL 7.332 Low 7.350-7.450 [facility] Comment on above: Performed By: #### L AB76 ####Mammal Keeper: UNA ARCE ([id number])[facility] (HL[facility])[address] PO2 ARTERIAL 104.0 mm Hg Normal 83.0-108.0 [facility] Comment on above: Performed By: #### L AB76 ####Mammal Keeper: UNA ARCE ([id number])[facility] (HL[facility])[address] SOURCE OF OXYGEN Non-Invasive Ventilator Normal [facility] Comment on above: Performed By: #### L AB76 ####Mammal Keeper: UNA ARCE ([id number])[facility]BGUADALU[facility] (SBHL[facility])[address] AMOUNT OF OXYGEN 4 liters Normal [facility] Comment on above: Performed By: #### L AB76 ####Mammal Keeper: UNA ARCE ([phone])[facility]BGUADALU[facility] (SBHL[facility])[address] Base excess Calc (Bld) [Moles/Vol] 9.9 mmol/L High -3.0-3.0 [facility] Comment on above: Performed By: #### L AB76 ####Mammal Keeper: UNA ARCE ([id number])[facility] [place] ([facility])[address] CO2 [Moles/Vol] 40.6 mmol/L High 22.0-28.0 [facility] Comment on above: Performed By: #### L AB76 ####Mammal Keeper: UNA ARCE ([id number])[facility] [place] ([facility])[address] HCO3 (Bld) [Moles/Vol] 38.2 mmol/L High 21.0-27.[address] [facility] Comment on above: Performed By: #### L AB76 ####Mammal Keeper: UNA ARCE ([phone])[facility]ALU[facility] (SBHL[facility])[address] Hemoglobin (Bld) [Mass/Vol] 8.6 g/dL Low Screen only [facility] Comment on above: Performed By: #### L AB76 ####Mammal Keeper: UNA ARCE ([id number])[facility]BGUADALU[facility] (SBHL[facility])[address] OXYGEN SATURATION (%) IN ARTERIAL BLOOD 96.1 % Low 97.0-99.0 [facility] Comment on above: Performed By: #### L AB76 ####Mammal Keeper: UNA ARCE ([id number])[facility]BGUADALU[facility] (SBHL[facility])[address] PCO2 ARTERIAL 80.1 mm Hg Critically high 35.0-48.0 [facility] Comment on above: Performed By: #### L AB76 ####Mammal Keeper: UNA ARCE ([phone])[facility] (SB[facility])[address] PH ARTERIAL 7.296 Low 7.350-7.450 [facility] Comment on above: Performed By: #### L AB76 ####Mammal Keeper: UNA ARCE ([id number])[facility]ITALAngel SANCHEZGUADALUPE COUNTY HOSPITALMarisol (SBHLAB)[address] PO2 ARTERIAL 92.0 mm Hg Normal 83.0-108.0 [facility] Comment on above: Performed By: #### L AB76 ####Mammal Keeper: UNA YAZMIN ([id number])[facility]HEZGUADALU[facility]OSPITALN (SBHLAB)[address] SOURCE OF OXYGEN Nasal Cannula (LPM) Normal [facility] Comment on above: Performed By: #### L AB76 ####Mammal Keeper: UNA ARCE ([id number])[facility] (SBHL[facility])[address] CBC W Auto Differential pane l (Bld)on 04-08-2025 Erythrocyte distribution width (RBC) [Ratio] 21.1 % High 11.5 - 15.0 % Shahab P. Tabatabai, [employer] [facility] Hematocrit (Bld) [Volume fraction] 25.9 % Low 40.0 - 52.0 % Shahab P. Tabatabai, [employer] [facility] Hemoglobin (Bld) [Mass/Vol] 7.2 g/dL Low 13.0 - 18.0 g/dL [facility] MCH (RBC) [Entitic mass] 22.3 pg Low 26. 0 - 34.0 pg [facility] MCHC (RBC) [Mass/Vol] 27.8 % Low 30.5 - 36.0 % [employer]ab P. Tabatabai, [employer] MCV (RBC) [Entitic vol] 80.2 fL 77.0 - 99.0 fL [employer]ab P. [employer]atabai, [employer] [facility] Platelet mean volume (Bld) [Entitic vol] 9.9 fL 9.0 - 12.7 fL [employer]ab P. Tabatabai, [employer] [facility] Platelets (Bld) [#/Vol] 314 10*3/uL 140 - 440 10*3/uL [employer]ab P. Tabatabai, [employer] RBC (Bld) [#/Vol] 3.23 10*6/uL Low 4.40 - 5.9 0 10*6/uL [employer]ab P. [employer]atabai, [employer] WBC (Bld) [#/Vol] 13 10*3/uL High 3.6 - 10.7 10*3/uL Shahab P. Tabatabai, [employer] CBC WITH AUTO DIFFERENTIALon 04-08-2025 Erythrocyte distribution width (RBC) [Ratio] 21.1 % High 11.5-15.0 [facility] Comment on above: Performed By: #### L [id number], [id number] ####Mammal Keeper: UNA ARCE ([id number])[facility] (SB[facility])[address] Hematocrit (Bld) [Volume fraction] 25.9 % Low 40.0-52.0 [facility] Comment on above: Performed By: #### L [id number], [id number] ####Mammal Keeper: UNA ARCE ([id number])[facility])[address] Hemoglobin (Bld) [Mass/Vol] 7.2 g/dL Low 13.0-18.0 [facility] Comment on above: Performed By: #### L [id number], [id number] ####Mammal Keeper: UNA ARCE ([id number])[facility] ([facility])[address] [place] [address] MCH (RBC) [Entitic mass] 22.3 pg Low 26.0-34.0 [facility] Comment on above: Performed By: #### L [id number], [id number] ####Mammal Keeper: UNA ARCE ([id number])[facility] [place] [address] MCHC 27.8 % Low 30.5-36.0 [facility] Comment on above: Performed By: #### L [id number], [id number] ####Mammal Keeper: UNA ARCE ([id number])[facility] MCV (RBC) [Entitic vol] 80.2 fL Normal 77.0-99.0 [facility] Comment on above: Performed By: #### L [id number], [id number] ####Mammal Keeper: UNA ARCE ([id number])[facility])[address] Platelet mean volume (Bld) [Entitic vol] 9.9 fL Normal 9.0-12.7 [facility] Comment on above: Performed By: #### L [id number], [id number] ####Mammal Keeper: UNA ARCE ([phone])[facility])[address] Platelets (Bld) [#/Vol] 314 10*3/uL Normal 140-440 [facility] Comment on above: Performed By: #### L [id number], [id number] ####Mammal Keeper: UNA ARCE ([id number])[facility] RBC (Bld) [#/Vol] 3.23 10*6/uL Low 4.40-5.90 [facility] Comment on above: Performed By: #### L [id number], [id number] ####Mammal Keeper: UNA ARCE ([phone])[facility] (SBHLAB)[address] WBC (Bld) [#/Vol] 13.0 10*3/uL High 3.6-10.7 [facility] Comment on above: Performed By: #### L [id number], [id number] ####Mammal Keeper: UNA ARCE ([phone])[facility] COMPREHENSIVE METABOLIC PANE Anant 04-08-2025 Albumin [Mass/Vol] 2.4 g/dL Low 3.4-4.8 [facility] Comment on above: Performed By: #### L AB103, LAB17 ####Mammal Keeper: UNA ARCE ([phone])[facility] (SBHLAB)[address] ALP [Catalytic activity/Vol] 57 U/L Normal 40-150 [facility] Comment on above: Performed By: #### L AB103, LAB17 ####Mammal Keeper: UNA ARCE ([phone])[facility] ([facility])[address] ALT [Catalytic activity/Vol] U/L Normal <40 [facility] Comment on above: Performed By: #### L AB103, LAB17 ####Mammal Keeper: UNA STAUFFERMELANIE ([phone])[facility] Anion gap [Moles/Vol] 10 mmol/L Normal 3-13 [facility] Comment on above: Performed By: #### L AB103, LAB17 ####Mammal Keeper: UNA STAUFFERMELANIE ([phone])[facility] AST [Catalytic activity/Vol] 21 U/L Normal <34 [facility] Comment on above: Performed By: #### L AB103, LAB17 ####Mammal Keeper: UNA STAUFFERMELANIE ([phone])[facility] Bilirubin [Mass/Vol] 0.6 mg/dL Normal <1.2 [facility] Comment on above: Performed By: #### L AB103, LAB17 ####Mammal Keeper: UNA ARCE ([phone])[facility] Calcium [Mass/Vol] 7.9 mg/dL Low 8.8-10.0 [facility] Comment on above: Performed By: #### L AB103, LAB17 ####Mammal Keeper: UNA ARCE ([phone])[facility] Chloride [Moles/Vol] 99 mmol/L Normal 98-107 [facility] Comment on above: Performed By: #### L AB103, LAB17 ####Mammal Keeper: UNA ARCE ([phone])[facility] (SB[facility])[address] CO2 [Moles/Vol] 33 mmol/L High 23-31 [facility] Comment on above: Performed By: #### L AB103, LAB17 ####Mammal Keeper: UNA ARCE ([phone])[facility] (SBHLAB)[address] Creatinine [Mass/Vol] 1.78 mg/dL High 0.72-1.25 [facility] Comment on above: Performed By: #### L DERICK, LAB17 ####Mammal Keeper: UNA ARCE ([phone])[facility] (SBHLAB)[address] GLOMERULAR FILTRATION RATE ML/MIN/1.73 SQ M.PREDICTED 36.0 mL/min/1.73m*2 Low >60.0 [facility] Comment on above: Result Comment: Calc ulation based on the Chronic Kidney Disease Epidemiology Collaboration (CKD-EPI) equation refit without adjustment for race Performed By: #### L DERICK, LAB17 ####Mammal Keeper: UNA ARCE ([phone])[facility] [place] (SBHLAB)[address] Glucose [Mass/Vol] 99 mg/dL Normal 82-115 [facility] Comment on above: Performed By: #### L AB103, LAB17 ####Mammal Keeper: UNA ARCE ([phone])[facility] (SBHLAB)[address] [place] [address] [place] Potassium [Moles/Vol] 3.4 mmol/L Low 3.5-5.1 [facility] Comment on above: Result Comment: [facility] potassium values may be up to 0.5 mmol/L lower than serum values. Performed By: #### L AB103, LAB17 ####Mammal Keeper: UNA ARCE ([phone])[facility] (SBHLAB)[address] Protein [Mass/Vol] 5.8 g/dL Low 6.4-8.3 [facility] Comment on above: Performed By: #### L AB103, LAB17 ####Mammal Keeper: UNA ARCE ([phone])[facility] [place] (SBHLAB)[address] Sodium [Moles/Vol] 142 mmol/L Normal 136-145 [facility] Comment on above: Performed By: #### L AB103, LAB17 ####Mammal Keeper: UNA ARCE ([phone])[facility] [place] (SBHLAB)[address] Urea nitrogen [Mass/Vol] 26 mg/dL High 9-23 [facility] Comment on above: Performed By: #### L AB103, LAB17 ####Mammal Keeper: UNA ARCE ([phone])[facility] [place] (SBHLAB)[address] Comprehensive metabolic 1998 panelon 04-08-2025 Albumin [Mass/Vol] 2.4 g/dL Low 3.4 - 4.8 g/dL [facility] ALP [Catalytic activity/Vol] 57 U/L 40 - 150 U/L [facility] ALT [Catalytic activity/Vol] U/L NINF - 40 U/L [facility] Anion gap [Moles/Vol] 10 mmol/L 3 - 13 mmol/L [facility] AST [Catalytic activity/Vol] 21 U/L NINF - 34 U/L [facility] Bilirubin [Mass/Vol] 0.6 mg/dL NINF - 1.2 mg/dL [facility] Calcium [Mass/Vol] 7.9 mg/dL Low 8.8 - 10. 0 mg/dL [facility] Chloride [Moles/Vol] 99 mmol/L 98 - 10 7 mmol/L [facility] CO2 [Moles/Vol] 33 mmol/L High 23 - 31 mmol/L [facility] Creatinine [Mass/Vol] 1.78 mg/dL High 0.72 - 1.25 mg/dL [facility] GFR/1.73 sq M.predicted (S/P/Bld) [Vol rate/Area] 36 mL/min Low - PINF [facility] Glucose [Mass/Vol] 99 mg/dL 82 - 115 mg/dL [facility] Interpretation and review of laboratory results Abnormal [facility] Potassium [Moles/Vol] 3.4 mmol/L Low 3.5 - 5.1 mmol/L [facility] Protein [Mass/Vol] 5.8 g/dL Low 6.4 - 8.3 g/dL [facility] Sodium [Moles/Vol] 142 mmol/L 136 - 145 mmol/L [facility] Urea nitrogen [Mass/Vol] 26 mg/dL High 9 - 23 mg/d L [facility] Consulton 04-08-2025 Consult Normal [facility] Laboratory - Chemistry and C hemistry - challengeOrdered By: Renay Chan on 04-08-2025 Base excess Calc (Bld) [Moles/Vol] 11.2 mmol/L High -3.0 - 3.0 mmol/L [facility] CO2 (Bld) [Partial pressure] 75.1 mm[Hg] High [facility] CO2 [Moles/Vol] 41.2 mmol/L High 22.0 - 28.0 mmol/L [facility] HCO3 (Bld) [Moles/Vol] 38.9 mmol/L High 21.0 - 27.0 mmol/L [facility] Oxygen (Bld) [Partial pressure] 104 mm[Hg] [facility] pH (Bld) 7.332 [pH] Low 7.350 - 7.450 [facility] Laboratory - Chemistry and C hemistry - challengeOrdered By: Sallie Powell on 04-08-2025 Base excess Calc (Bld) [Moles/Vol] 9.9 mmol/L High -3.0 - 3.0 mmol/L [facility] CO2 (Bld) [Partial pressure] 80.1 mm[Hg] Critically high [facility] CO2 [Moles/Vol] 40.6 mmol/L High 22.0 - 28.0 mmol/L [facility] HCO3 (Bld) [Moles/Vol] 38.2 mmol/L High 21.0 - 27.0 mmol/L [facility] Oxygen (Bld) [Partial pressure] 92 mm[Hg] [facility] pH (Bld) 7.296 [pH] Low 7.350 - 7.450 [facility] Laboratory - Chemistry and C hemistry - challengeon 04-08-2025 Glucose [Mass/Vol] 100 mg/dL 70 - 100 mg/dL [facility] Magnesium [Mass/Vol] 1.6 mg/dL 1.6 - 2 .6 mg/dL [facility] Laboratory - Hematology and Cell countsOrdered By: Renay Chan on 04-08-2025 Hemoglobin (Bld) [Mass/Vol] 8.4 g/dL Low 13.5 - 17.5 g/dl [facility] Laboratory - Hematology and Cell countsOrdered By: Sallie Powell on 04-08-2025 Hemoglobin (Bld) [Mass/Vol] 8.6 g/dL Low 13.5 - 17.5 g/dl [facility] Laboratory - Hematology and Cell countson 04-08-2025 Anisocytosis Ql (Bld) Moderate Abnormal (none) [facility] Basophils (Bld) [#/Vol] 0.1 10*3/uL 0.0 - 0.2 10*3/uL [facility] Basophils/100 WBC (Bld) 1 % 0 - 2 % [facility] Hypochromia Ql (Bld) Moderate Abnormal (none) [facility] Lymphocytes (Bld) [#/Vol] 1.8 10*3/uL 1.0 - 4.3 10*3/uL [facility] Lymphocytes/100 WBC (Bld) 14 % Low 15 - 45 % [facility] Monocytes (Bld) [#/Vol] 1.6 10*3/uL High 0.0 - 0.9 10*3/uL [facility] Monocytes/100 WBC (Bld) 12 % 5 - 13 % [facility] Neutrophils (Bld) [#/Vol] 9.6 10*3/uL High 1.8 - 7.5 10*3/uL [facility] Ovalocytes LM Ql (Bld) Slight Abnormal (none) [facility] Poikilocytosis LM Ql (Bld) Moderate Abnormal (none) [facility] RBC morphology finding Nom (Bld) abnormal [facility] Segmented neutrophils/100 WBC (Bld) 74 % 38 - 82 % [facility] Stomatocytes LM Ql (Bld) Moderate Abnormal (none) [facility] MAGNESIUMon 04-08-2025 Magnesium [Mass/Vol] 1.6 mg/dL Normal 1.6-2.6 [facility] Comment on above: Result Comment: YARELI [place] COMMENTS:Higher values can be expected in females during menses. Performed By: #### L AB103, LAB17 ####Mammal Keeper: UNA ARCE ([phone])[facility] [place] (SBHLAB)[address] MANUAL DIFFERENTIAL (CELLAVI BANDAR)on 04-08-2025 ANISOCYTOSIS PRESENCE IN BLOOD BY LIGHT MICROSCOPY Moderate Abnormal (none) [facility] Comment on above: Performed By: #### L [id number], [id number] ####Mammal Keeper: UNA ARCE ([id number])[facility] [place] (SBHLAB)[address] BAND NEUTROPHILS TOTAL PER COUNTED LEUKOCYTES BY MANUAL COUNT Normal [facility] Comment on above: Performed By: #### L [id number], [id number] ####Mammal Keeper: UNA ARCE ([phone])[facility] (SBHL[facility])[address] [place] [address] [place] BASOPHILS (10*3/UL) IN BLOOD-CELLAVISION 0.1 10*3/uL Normal 0.0-0.2 [facility] Comment on above: Performed By: #### L [id number], [id number] ####Mammal Keeper: UNA ARCE ([phone])[facility] [place] (SBHLAB)[address] [place] [address] [place] BASOPHILS TOTAL PER COUNTED LEUKOCYTES BY MANUAL COUNT 1 Normal [facility] Comment on above: Performed By: #### L [id number], [id number] ####Mammal Keeper: UNA ARCE ([id number])[facility] [place] (SBHLAB)[address] [place] [address] [place] BASOPHILS/100 LEUKOCYTES IN BLOOD-CELLAVISION 1 % Normal 0-2 [facility] Comment on above: Performed By: #### L [id number], [id number] ####Mammal Keeper: UNA ARCE ([id number])[facility] [place] (SBHLAB)[address] [place] [address] [place] BLASTS TOTAL PER COUNTED LEUKOCYTES BY MANUAL COUNT Normal [facility] Comment on above: Performed By: #### L [id number], [id number] ####Mammal Keeper: UNA MOHRCER ([phone])[facility] [place] (SBHLAB)[address] [place] [address] [place] EOSINOPHILS TOTAL PER COUNTED LEUKOCYTES BY MANUAL COUNT Normal [facility] Comment on above: Performed By: #### L [id number], [id number] ####Mammal Keeper: UNA ARCE ([phone])[facility] [place] ([facility])[address] HYPOCHROMIA (PRESENCE) IN BLOOD BY LIGHT MICROSCOPY Moderate Abnormal (none) [facility] Comment on above: Performed By: #### L [id number], [id number] ####Mammal Keeper: UNAANJEL ARCE ([id number])[facility] [place] (SBHLAB)[address] [place] [address] [place] LYMPHOCYTES (10*3/UL) IN BLOOD-CELLAVISION 1.8 10*3/uL Normal 1.0-4.3 [facility] Comment on above: Performed By: #### L [id number], [id number] ####Mammal Keeper: UNAANJEL ARCE ([id number])[facility] [place] (SB[facility]AB)[address] [place] [address] [place] LYMPHOCYTES TOTAL PER COUNTED LEUKOCYTES BY MANUAL COUNT 14 Normal [facility] Comment on above: Performed By: #### L [id number], [id number] ####Mammal Keeper: UNA YAZMIN ([id number])[facility] [place] (SBHLAB)[address] [place] [address] [place] LYMPHOCYTES/100 LEUKOCYTES IN BLOOD-CELLAVISION 14 % Low 15-45 [facility] Comment on above: Performed By: #### L [id number], [id number] ####Mammal Keeper: UNA ARCE ([phone])[facility] [place] (SBHLAB)[address] [place] [address] [place] METAMYELOCYTES TOTAL PER COUNTED LEUKOCYTES BY MANUAL COUNT Comment on above: Performed By: #### L [id number], [id number] ####Mammal Keeper: UNA STAUFFERMELANIE ([id number])[facility] [place] (SBHLAB)[address] [place] [address] [place] MONOCYTES (10*3/UL) IN BLOOD-CELLAVISION 1.6 10*3/uL High 0.0-0.9 [facility] Comment on above: Performed By: #### L [id number], [id number] ####Mammal Keeper: UNA STAUFFERMELANIE ([phone])[facility] [place] (SBHLAB)[address] [place] [address] [place] MONOCYTES TOTAL PER COUNTED LEUKOCYTES BY MANUAL COUNT 12 Normal [facility] Comment on above: Performed By: #### L [id number], [id number] ####Mammal Keeper: UNA STAUFFERMELANIE ([phone])[facility] [place] (SB[facility])[address] [place] [address] [place] MONOCYTES/100 LEUKOCYTES IN BLOOD-LUCIANA 12 % Normal -13 [facility] Comment on above: Performed By: #### L [id number], [id number] ####Mammal Keeper: UNA ARCE ([phone])[facility] [place] (SB[facility]AB)[address] [place] [address] [place] MYELOCYTES COUNTED BY MANUAL COUNT Comment on above: Performed By: #### L [id number], [id number] ####Mammal Keeper: UNA ARCE ([id number])[facility] [place] (SBHLAB)[address] [place] [address] [place] NEUTROPHILS TOTAL PER COUNTED LEUKOCYTES BY MANUAL COUNT 75 Normal [facility] Comment on above: Performed By: #### L [id number], [id number] ####Mammal Keeper: NUA ARCE ([phone])[facility] [place] (SBHLAB)[address] [place] [address] [place] OVALOCYTES PRESENCE IN BLOOD BY LIGHT MICROSCOPY Slight Abnormal (none) [facility] Comment on above: Performed By: #### L [id number], [id number] ####Mammal Keeper: UNA ARCE ([phone])[facility] [place] (SB[facility])[address] [place] [address] [place] POIKILOCYTOSIS (PRESENCE) IN BLOOD BY LIGHT MICROSCOPY Moderate Abnormal (none) [facility] Comment on above: Performed By: #### L [id number], [id number] ####Mammal Keeper: UNA ARCE ([id number])[facility] [place] (SB[facility])[address] [place] [address] [place] PROMYELOCYTES TOTAL PER COUNTED LEUKOCYTES BY MANUAL COUNT Normal [facility] Comment on above: Performed By: #### L [id number], [id number] ####Mammal Keeper: UNA ARCE ([id number])[facility] [place] (SB[facility])[address] [place] [address] [place] RBC MORPHOLOGY IN BLOOD abnormal Normal [facility] Comment on above: Performed By: #### L [id number], [id number] ####Mammal Keeper: UNA ARCE ([phone])[facility] [place] (SB[facility])[address] [place] [address] [place] SEGMENTED NEUTROPHILS (10*3/UL) IN BLOOD-CELLAVISION 9.6 10*3/uL High 1.8-7.5 [facility] Comment on above: Performed By: #### L [id number], [id number] ####Mammal Keeper: UNA ARCE ([id number])[facility] [place] (SB[facility])[address] [place] [address] [place] SEGMENTED NEUTROPHILS/100 LEUKOCYTES-CE 74 % Normal 38-82 [facility] Comment on above: Performed By: #### L [id number], [id number] ####Mammal Keeper: UNA ARCE ([id number])[facility] [place] (SBHLAB)[address] STOMATOCYTES IN BLOOD BY LIGHT MICROSCOPY Moderate Abnormal (none) [facility] Comment on above: Performed By: #### L [id number], [id number] ####Mammal Keeper: UNA ARCE ([phone])[facility] (SBHLAB)[address] UNCLASSIFIED CELLS TOTAL PER COUNTED LEUKOCYTES BY MANUAL COUNT Normal [facility] Comment on above: Performed By: #### L [id number], [id number] ####Mammal Keeper: UNA ARCE ([id number])[facility] (SBHLAB)[address] VARIANT LYMPHOCYTES TOTAL PER COUNTED LEUKOCYTES BY MANUAL COUNT Normal [facility] Comment on above: Performed By: #### L [id number], [id number] ####Mammal Keeper: UNA ARCE ([id number])[facility] (SBHLAB)[address] Magnesium [Mass/Vol]on 04-08 Interpretation and review of laboratory results Normal [facility] No Panel InformationOrdered By: Renay Chan on 04-08-2025 Amount Of Oxygen 0.40 [facility] Interpretation and review of laboratory results Abnormal [facility] Source Of Oxygen Non-Invasive Ventilator [facility] No Panel InformationOrdered By: Sallie Powell on 04-08-2025 Amount Of Oxygen 4 liters [facility] Interpretation and review of laboratory results Abnormal [facility] Source Of Oxygen Nasal Cannula (LPM) [facility] No Panel Informationon 04-08 Interpretation and review of laboratory results Normal [facility] Basophils Manual 1 [facility] Interpretation and review of laboratory results Abnormal [facility] Lymphocytes Manual 14 [facility] Monocytes Manual 12 [facility] Neutrophils Manual 75 [facility] Progress Noteon 04-08-2025 Progress Note Normal [facility] Progress Note Normal [facility] Progress Note Normal [facility] Progress Note Normal [facility] XR Chest Single viewon 04-08 [facility] Radiology Study observation (narrative) [facility] XR Chest Single viewOrdered By: Nelson Sow on 04-08-2025 [facility] Work Phone: CBC W Auto Differential pane l (Bld)Ordered By: Sharita Beck on 04-07-2025 Erythrocyte distribution width (RBC) [Ratio] 20.5 % High 11.5 - 15.0 % [facility] Hematocrit (Bld) [Volume fraction] 27.2 % Low 40.0 - 52.0 % [facility] Hemoglobin (Bld) [Mass/Vol] 7.4 g/dL Low 13.0 - 18.0 g/dL [facility] MCH (RBC) [Entitic mass] 21.8 pg Low 26. 0 - 34.0 pg [facility] MCHC (RBC) [Mass/Vol] 27.2 % Low 30.5 - 36.0 % [facility] MCV (RBC) [Entitic vol] 80 fL 77.0 - 99.0 fL [facility] Platelet mean volume (Bld) [Entitic vol] 9.8 fL 9.0 - 12.7 fL [facility] Platelets (Bld) [#/Vol] 346 10*3/uL 140 - 440 10*3/uL [facility] RBC (Bld) [#/Vol] 3.4 10*6/uL Low 4.40 - 5.9 0 10*6/uL [facility] WBC (Bld) [#/Vol] 11.5 10*3/uL High 3.6 - 10.7 10*3/uL [facility] CBC WITH AUTO DIFFERENTIALon 04-07-2025 Erythrocyte distribution width (RBC) [Ratio] 20.5 % High 11.5-15.0 [facility] Comment on above: Performed By: #### L [id number], [id number] ####Mammal Keeper: UNA ARCE ([id number])[facility] ([facility])[address] [place] [address] Hematocrit (Bld) [Volume fraction] 27.2 % Low 40.0-52.0 [facility] Comment on above: Performed By: #### L [id number], [id number] ####Mammal Keeper: UNA ARCE ([id number])[facility] (SBHLAB)[address] Hemoglobin (Bld) [Mass/Vol] 7.4 g/dL Low 13.0-18.0 [facility] Comment on above: Performed By: #### L [id number], [id number] ####Mammal Keeper: UNA ARCE ([id number])[facility] (SBHLAB)[address] MCH (RBC) [Entitic mass] 21.8 pg Low 26.0-34.0 [facility] Comment on above: Performed By: #### L [id number], [id number] ####Mammal Keeper: UNA ARCE ([id number])[facility] ([facility])[address] MCHC 27.2 % Low 30.5-36.0 [facility] Comment on above: Performed By: #### L [id number], [id number] ####Mammal Keeper: UNA ARCE ([id number])[facility] (SB[facility])[address] MCV (RBC) [Entitic vol] 80.0 fL Normal 77.0-99.0 [facility] Comment on above: Performed By: #### L [id number], [id number] ####Mammal Keeper: UNA ARCE ([id number])[facility] (SB[facility])[address] Platelet mean volume (Bld) [Entitic vol] 9.8 fL Normal 9.0-12.7 [facility] Comment on above: Performed By: #### L [id number], [id number] ####Mammal Keeper: UNA ARCE ([id number])[facility] (SBHLAB)[address] Platelets (Bld) [#/Vol] 346 10*3/uL Normal 140-440 [facility] Comment on above: Performed By: #### L [id number], [id number] ####Mammal Keeper: UNA ARCE ([phone])[facility] (SBHLAB)[address] RBC (Bld) [#/Vol] 3.40 10*6/uL Low 4.40-5.90 [facility] Comment on above: Performed By: #### L [id number], [id number] ####Mammal Keeper: UNA ARCE ([id number])[facility] B[facility]N (SBHLAB)[address] WBC (Bld) [#/Vol] 11.5 10*3/uL High 3.6-10.7 [facility] Comment on above: Performed By: #### L [id number], [id number] ####Mammal Keeper: UNA ARCE ([phone])[facility] (SBHLAB)[address] COMPREHENSIVE METABOLIC PANE Anant 04-07-2025 Albumin [Mass/Vol] 2.4 g/dL Low 3.4-4.8 [facility] Comment on above: Performed By: #### L AB17, [id number] ####Mammal Keeper: UNA ARCE ([id number])[facility] BASHIRN (SBHLAB)[address] ALP [Catalytic activity/Vol] 57 U/L Normal 40-150 [facility] Comment on above: Performed By: #### L AB17, [id number] ####Mammal Keeper: UNA ARCE ([id number])[facility] (SBHLAB)[address] ALT [Catalytic activity/Vol] U/L Normal <40 [facility] Comment on above: Performed By: #### L AB17, [id number] ####Mammal Keeper: UNA ARCE ([phone])[facility] [place] (SBHLAB)[address] Anion gap [Moles/Vol] 14 mmol/L High 3-13 [facility] Comment on above: Performed By: #### L AB17, [id number] ####Mammal Keeper: UNA ARCE ([id number])[facility] [place] ([facility])[address] AST [Catalytic activity/Vol] 23 U/L Normal <34 [facility] Comment on above: Performed By: #### L AB17, [id number] ####Mammal Keeper: UNA ARCE ([phone])[facility] [place] ([facility])[address] Bilirubin [Mass/Vol] 0.7 mg/dL Normal <1.2 [facility] Comment on above: Performed By: #### L AB17, [id number] ####Mammal Keeper: UNA ARCE ([phone])[facility] [place] ([facility])[address] Calcium [Mass/Vol] 7.9 mg/dL Low 8.8-10.0 [facility] Comment on above: Performed By: #### L AB17, [id number] ####Mammal Keeper: UNA ARCE ([id number])[facility] [place] ([facility])[address] [place] [address] [place] Chloride [Moles/Vol] 98 mmol/L Normal 98-107 [facility] Comment on above: Performed By: #### L AB17, [id number] ####Mammal Keeper: UNA ARCE ([phone])[facility] [place] ([facility])[address] [place] [address] [place] CO2 [Moles/Vol] 31 mmol/L Normal 23-31 [facility] Comment on above: Performed By: #### L AB17, [id number] ####Mammal Keeper: UNA ARCE ([id number])[facility] [place] (SBHLAB)[address] Creatinine [Mass/Vol] 1.63 mg/dL High 0.72-1.25 [facility] Comment on above: Performed By: #### L AB17, [id number] ####Mammal Keeper: UNA ARCE ([phone])[facility] [place] (SB[facility]AB)[address] GLOMERULAR FILTRATION RATE ML/MIN/1.73 SQ M.PREDICTED 40.0 mL/min/1.73m*2 Low >60.0 [facility] Comment on above: Result Comment: Calc ulation based on the Chronic Kidney Disease Epidemiology Collaboration (CKD-EPI) equation refit without adjustment for race Performed By: #### L AB17, [id number] ####Mammal Keeper: UNA ARCE ([id number])[facility] [place] ([facility])[address] Glucose [Mass/Vol] 88 mg/dL Normal 82-115 [facility] Comment on above: Performed By: #### L AB17, [id number] ####Mammal Keeper: UNA ARCE ([phone])[facility] ([facility])155 40 [address] Potassium [Moles/Vol] 3.6 mmol/L Normal 3.5-5.1 [facility] Comment on above: Result Comment: [facility] potassium values may be up to 0.5 mmol/L lower than serum values. Performed By: #### L AB17, [id number] ####Mammal Keeper: UNA ARCE ([phone])[facility] (SBHLAB)[address] Protein [Mass/Vol] 5.7 g/dL Low 6.4-8.3 [facility] Comment on above: Performed By: #### L AB17, [id number] ####Mammal Keeper: UNA ARCE ([phone])[facility] (SBHLAB)[address] [place] [address] [place] Sodium [Moles/Vol] 143 mmol/L Normal 136-145 [facility] Comment on above: Performed By: #### L AB17, [id number] ####Mammal Keeper: UNA ARCE ([phone])[facility] (SBHLAB)[address] Urea nitrogen [Mass/Vol] 26 mg/dL High 9-23 [facility] Comment on above: Performed By: #### L AB17, [id number] ####Mammal Keeper: UNA ARCE ([id number])[facility] (SBHLAB)[address] Comprehensive metabolic 1998 panelon 04-07-2025 Albumin [Mass/Vol] 2.4 g/dL Low 3.4 - 4.8 g/dL [facility] ALP [Catalytic activity/Vol] 57 U/L 40 - 150 U/L [facility] ALT [Catalytic activity/Vol] U/L NINF - 40 U/L [facility] Anion gap [Moles/Vol] 14 mmol/L High 3 - 13 mmol/L [facility] AST [Catalytic activity/Vol] 23 U/L NINF - 34 U/L [facility] Bilirubin [Mass/Vol] 0.7 mg/dL NINF - 1.2 mg/dL [facility] Calcium [Mass/Vol] 7.9 mg/dL Low 8.8 - 10. 0 mg/dL [facility] Chloride [Moles/Vol] 98 mmol/L 98 - 10 7 mmol/L [facility] CO2 [Moles/Vol] 31 mmol/L 23 - 31 mmol/L [facility] Creatinine [Mass/Vol] 1.63 mg/dL High 0.72 - 1.25 mg/dL [facility] GFR/1.73 sq M.predicted (S/P/Bld) [Vol rate/Area] 40 mL/min Low - PINF [facility] Glucose [Mass/Vol] 88 mg/dL 82 - 115 mg/dL [facility] Interpretation and review of laboratory results Abnormal [facility] Potassium [Moles/Vol] 3.6 mmol/L 3.5 - 5.1 mmol/L [facility] Protein [Mass/Vol] 5.7 g/dL Low 6.4 - 8.3 g/dL [facility] Sodium [Moles/Vol] 143 mmol/L 136 - 145 mmol/L [facility] Urea nitrogen [Mass/Vol] 26 mg/dL High 9 - 23 mg/d L [facility] Consulton 04-07-2025 Consult Normal [facility] Laboratory - Chemistry and C hemistry - challengeon 04-07-2025 Magnesium [Mass/Vol] 1.7 mg/dL 1.6 - 2 .6 mg/dL [facility] Laboratory - Hematology and Cell countson 04-07-2025 Anisocytosis Ql (Bld) Slight Abnormal (none) [facility] Eosinophils (Bld) [#/Vol] 0.3 10*3/uL 0.0 - 0.5 10*3/uL [facility] Eosinophils/100 WBC (Bld) 3 % 0 - 6 % [facility] Hypochromia Ql (Bld) Moderate Abnormal (none) [facility] Lymphocytes (Bld) [#/Vol] 0.9 10*3/uL Low 1.0 - 4.3 10*3/uL [facility] Lymphocytes/100 WBC (Bld) 8 % Low 15 - 45 % [facility] Monocytes (Bld) [#/Vol] 0.8 10*3/uL 0.0 - 0.9 10*3/uL [facility] Monocytes/100 WBC (Bld) 7 % 5 - 13 % [facility] Neutrophils (Bld) [#/Vol] 9.5 10*3/uL High 1.8 - 7.5 10*3/uL [facility] Nucleated RBC/100 WBC (Bld) [Ratio] 1 % 0 - 2 % [facility] Poikilocytosis LM Ql (Bld) Slight Abnormal (none) [facility] RBC morphology finding Nom (Bld) abnormal [facility] Segmented neutrophils/100 WBC (Bld) 83 % High 38 - 82 % [facility] Stomatocytes LM Ql (Bld) Moderate Abnormal (none) [facility] MAGNESIUMon 04-07-2025 Magnesium [Mass/Vol] 1.7 mg/dL Normal 1.6-2.6 [facility] Comment on above: Result Comment: ORDE R COMMENTS:Higher values can be expected in females during menses. Performed By: #### L AB17, [id number] ####Mammal Keeper: UNA ARCE ([phone])[facility] (SBHLAB)[address] [place] [address] [place] MANUAL DIFFERENTIAL (CELLAVI BANDAR)on 04-07-2025 ANISOCYTOSIS PRESENCE IN BLOOD BY LIGHT MICROSCOPY Slight Abnormal (none) [facility] Comment on above: Performed By: #### L [id number], [id number] ####Mammal Keeper: UNA ARCE ([id number])[facility] (SBHLAB)[address] BAND NEUTROPHILS TOTAL PER COUNTED LEUKOCYTES BY MANUAL COUNT Normal [facility] Comment on above: Performed By: #### L [id number], [id number] ####Mammal Keeper: UNA ARCE ([id number])[facility] (SBHLAB)[address] BASOPHILS TOTAL PER COUNTED LEUKOCYTES BY MANUAL COUNT Normal [facility] Comment on above: Performed By: #### L [id number], [id number] ####Mammal Keeper: UNA ARCE ([id number])[facility] [place] (SBHLAB)[address] [place] [address] [place] BLASTS TOTAL PER COUNTED LEUKOCYTES BY MANUAL COUNT Normal [facility] Comment on above: Performed By: #### L [id number], [id number] ####Mammal Keeper: UNA ARCE ([id number])[facility] [place] (SBHLAB)[address] [place] [address] [place] EOSINOPHILS (10*3/UL) IN BLOOD-CELLAVISION 0.3 10*3/uL Normal 0.0-0.5 [facility] Comment on above: Performed By: #### L [id number], [id number] ####Mammal Keeper: UNA ARCE ([id number])[facility] (SBHLAB)[address] [place] [address] [place] EOSINOPHILS TOTAL PER COUNTED LEUKOCYTES BY MANUAL COUNT 3 High 0-1 [facility] Comment on above: Performed By: #### L [id number], [id number] ####Mammal Keeper: UNA STAUFFERMELANIE ([phone])[facility] (SBHLAB)[address] [place] [address] [place] EOSINOPHILS/100 LEUKOCYTES IN BLOOD-CELLAVISION 3 % Normal 0-6 [facility] Comment on above: Performed By: #### L [id number], [id number] ####Mammal Keeper: UNA STAUFFERMELANIE ([phone])[facility] [place] (SBHLAB)[address] [place] [address] [place] HYPOCHROMIA (PRESENCE) IN BLOOD BY LIGHT MICROSCOPY Moderate Abnormal (none) [facility] Comment on above: Performed By: #### L [id number], [id number] ####Mammal Keeper: UNA BERMUDEZPEDRO ([id number])[facility] [place] (SBHLAB)[address] [place] [address] [place] LYMPHOCYTES (10*3/UL) IN BLOOD-CELLAVISION 0.9 10*3/uL Low 1.0-4.3 [facility] Comment on above: Performed By: #### L [id number], [id number] ####Mammal Keeper: UNA STAUFFERMELANIE ([id number])[facility] [place] (SBHLAB)[address] [place] [address] [place] LYMPHOCYTES TOTAL PER COUNTED LEUKOCYTES BY MANUAL COUNT 8 Normal [facility] Comment on above: Performed By: #### L [id number], [id number] ####Mammal Keeper: UNA STAUFFERMELANIE ([id number])[facility] [place] (SBHLAB)[address] [place] [address] [place] LYMPHOCYTES/100 LEUKOCYTES IN BLOOD-CELLAVISION 8 % Low 15-45 [facility] Comment on above: Performed By: #### L [id number], [id number] ####Mammal Keeper: UNA STAUFFERMELANIE ([id number])[facility] [place] (SBHLAB)[address] [place] [address] [place] METAMYELOCYTES TOTAL PER COUNTED LEUKOCYTES BY MANUAL COUNT Normal [facility] Comment on above: Performed By: #### L [id number], [id number] ####Mammal Keeper: UNA STAUFFERMELANIE ([phone])[facility] [place] (SBHLAB)[address] [place] [address] [place] MONOCYTES (10*3/UL) IN BLOOD-CELLAVISION 0.8 10*3/uL Normal 0.0-0.9 [facility] Comment on above: Performed By: #### L [id number], [id number] ####Mammal Keeper: UNA BERMUDEZPEDRO ([id number])[facility] [place] (SBHLAB)[address] [place] [address] [place] MONOCYTES TOTAL PER COUNTED LEUKOCYTES BY MANUAL COUNT 7 Normal [facility] Comment on above: Performed By: #### L [id number], [id number] ####Mammal Keeper: UNA BERMUDEZPEDRO ([phone])[facility] [place] (SBHLAB)[address] [place] [address] [place] MONOCYTES/100 LEUKOCYTES IN BLOOD-LUCIANA 7 % Normal 5-13 [facility] Comment on above: Performed By: #### L [id number], [id number] ####Mammal Keeper: UNA BERMUDEZPEDRO ([id number])[facility] [place] (SBHLAB)[address] MYELOCYTES COUNTED BY MANUAL COUNT Comment on above: Performed By: #### L [id number], [id number] ####Mammal Keeper: UNA ARCE ([phone])[facility] [place] (SBHLAB)[address] [place] [address] [place] NEUTROPHILS TOTAL PER COUNTED LEUKOCYTES BY MANUAL COUNT 86 Normal [facility] Comment on above: Performed By: #### L [id number], [id number] ####Mammal Keeper: UNA ARCE ([phone])[facility] [place] (SBHLAB)[address] [place] [address] [place] NUCLEATED ERYTHROCYTES/100 LEUKOCTES IN BLOOD-CELLAVISION 1 % Normal 0-2 [facility] Comment on above: Performed By: #### L [id number], [id number] ####Mammal Keeper: UNA ARCE ([phone])[facility] [place] (SBHLAB)[address] [place] [address] [place] POIKILOCYTOSIS (PRESENCE) IN BLOOD BY LIGHT MICROSCOPY Slight Abnormal (none) [facility] Comment on above: Performed By: #### L [id number], [id number] ####Mammal Keeper: UNA ARCE ([phone])[facility] [place] (SBHLAB)[address] [place] [address] [place] PROMYELOCYTES TOTAL PER COUNTED LEUKOCYTES BY MANUAL COUNT Normal [facility] Comment on above: Performed By: #### L [id number], [id number] ####Mammal Keeper: UNA ARCE ([id number])[facility]A [facility]BG[facility]ADALU[facility]ITALN (SBHLAB)[address] RBC MORPHOLOGY IN BLOOD abnormal Normal [facility] Comment on above: Performed By: #### L [id number], [id number] ####Mammal Keeper: UNA ARCE ([phone])[facility] [place] (SBHLAB)[address] [place] [address] [place] SEGMENTED NEUTROPHILS (10*3/UL) IN BLOOD-CELLAVISION 9.5 10*3/uL High 1.8-7.5 [facility] Comment on above: Performed By: #### L [id number], [id number] ####Mammal Keeper: UNA ARCE ([id number])[facility] [place] (SBHLAB)[address] [place] [address] [place] SEGMENTED NEUTROPHILS/100 LEUKOCYTES-CE 83 % High 38-82 [facility] Comment on above: Performed By: #### L [id number], [id number] ####Mammal Keeper: UNA ARCE ([id number])[facility] [place] (SBHLAB)[address] [place] [address] [place] STOMATOCYTES IN BLOOD BY LIGHT MICROSCOPY Moderate Abnormal (none) [facility] Comment on above: Performed By: #### L [id number], [id number] ####Mammal Keeper: UNA ARCE ([id number])[facility] (SBHLAB)[address] UNCLASSIFIED CELLS TOTAL PER COUNTED LEUKOCYTES BY MANUAL COUNT Normal [facility] Comment on above: Performed By: #### L [id number], [id number] ####Mammal Keeper: UNA BERMUDEZPEDRO ([phone])[facility] (SBHLAB)[address] VARIANT LYMPHOCYTES TOTAL PER COUNTED LEUKOCYTES BY MANUAL COUNT Normal [facility] Comment on above: Performed By: #### L [id number], [id number] ####Mammal Keeper: UNA STAUFFERMELANIE ([phone])[facility] (SBHLAB)[address] Magnesium [Mass/Vol]on 04-07 Interpretation and review of laboratory results Normal [facility] No Panel Informationon 04-07 Eosinophils Manual 3 High 0 - 1 [facility] Lymphocytes Manual 8 [facility] Monocytes Manual 7 [facility] alth Neutrophils Manual 86 [facility] No Panel InformationOrdered By: Sharita Beck on 04-07-2025 Interpretation and review of laboratory results Abnormal [facility] Progress Noteon 04-07-2025 Progress [facility] Progress Note Normal [facility] Progress [facility] Normal [facility] Progress [facility] Normal [facility] Progress Note Normal [facility] [id number] 04-06-2025 [id number] Normal [facility] CBC W Auto Differential pane l (Bld)Ordered By: Annmarie Zuñiga on 04-06-2025 Hematocrit (Bld) [Volume fraction] 27.2 % Low 40.0 - 52.0 % [facility] Hemoglobin (Bld) [Mass/Vol] 7.6 g/dL Low 13.0 - 18.0 g/dL [facility] MCH (RBC) [Entitic mass] 22 pg Low 26. 0 - 34.0 pg [facility] MCV (RBC) [Entitic vol] 78.6 fL 77.0 - 99.0 fL [facility] RBC (Bld) [#/Vol] 3.46 10*6/uL Low 4.40 - 5.9 0 10*6/uL [facility] CBC WITH AUTO DIFFERENTIALon 04-06-2025 Erythrocyte distribution width (RBC) [Ratio] 20.5 % High 11.5-15.0 [facility] Comment on above: Performed By: #### L [id number], [id number] ####Mammal Keeper: UNA ARCE ([phone])[facility] (SBHLAB)[address] [place] [address] Hematocrit (Bld) [Volume fraction] 27.2 % Low 40.0-52.0 [facility] Comment on above: Performed By: #### L [id number], [id number] ####Mammal Keeper: UNA ARCE ([phone])[facility] [place] [address] Hemoglobin (Bld) [Mass/Vol] 7.6 g/dL Low 13.0-18.0 [facility] Comment on above: Performed By: #### L [id number], [id number] ####Mammal Keeper: UNA ARCE ([id number])[facility] [place] [address] MCH (RBC) [Entitic mass] 22.0 pg Low 26.0-34.0 [facility] Comment on above: Performed By: #### L [id number], [id number] ####Mammal Keeper: UNA ARCE ([id number])[facility] (SBHLAB)[address] [place] [address] MCHC 27.9 % Low 30.5-36.0 [facility] Comment on above: Performed By: #### L [id number], [id number] ####Mammal Keeper: UNA ARCE ([id number])[facility] (SBHLAB)[address] [place] [address] MCV (RBC) [Entitic vol] 78.6 fL Normal 77.0-99.0 [facility] Comment on above: Performed By: #### L [id number], [id number] ####Mammal Keeper: UAN ARCE ([id number])[facility]NETTE BASHIRMarisol (SBHLAB)[address] [place] [address] Platelet mean volume (Bld) [Entitic vol] 9.7 fL Normal 9.0-12.7 [facility] Comment on above: Performed By: #### L [id number], [id number] ####Mammal Keeper: UNA ARCE ([id number])[facility] [place] (SBHLAB)[address] Platelets (Bld) [#/Vol] 344 10*3/uL Normal 140-440 [facility] Comment on above: Performed By: #### L [id number], [id number] ####Mammal Keeper: UNA ARCE ([id number])[facility] [place] (SBHLAB)[address] [place] [address] RBC (Bld) [#/Vol] 3.46 10*6/uL Low 4.40-5.90 [facility] Comment on above: Performed By: #### L [id number], [id number] ####Mammal Keeper: UNA ARCE ([id number])[facility] BASHIRMarisol (SBHLAB)[address] [place] [address] WBC (Bld) [#/Vol] 10.3 10*3/uL Normal 3.6-10.7 [facility] Comment on above: Performed By: #### L [id number], [id number] ####Mammal Keeper: UNA ARCE ([id number])[facility] [place] (SBHLAB)[address] COMPREHENSIVE METABOLIC PANE Anant 04-06-2025 Albumin [Mass/Vol] 2.6 g/dL Low 3.4-4.8 [facility] Comment on above: Performed By: #### L AB17, [id number] ####Mammal Keeper: UNA ARCE ([phone])[facility] (SBHLAB)[address] ALP [Catalytic activity/Vol] 63 U/L Normal 40-150 [facility] Comment on above: Performed By: #### L AB17, [id number] ####Mammal Keeper: UNA ARCE ([id number])[facility] [place] (SBHLAB)[address] [place] [address] [place] ALT [Catalytic activity/Vol] 6 U/L Normal <40 [facility] Comment on above: Performed By: #### L AB17, [id number] ####Mammal Keeper: UNA ARCE ([id number])[facility] [place] (SBHLAB)[address] Anion gap [Moles/Vol] 13 mmol/L Normal 3-13 [facility] Comment on above: Performed By: #### L AB17, [id number] ####Mammal Keeper: UNA ARCE ([id number])[facility] [place] (SBHLAB)[address] AST [Catalytic activity/Vol] 25 U/L Normal <34 [facility] Comment on above: Performed By: #### L AB17, [id number] ####Mammal Keeper: UNA ARCE ([phone])[facility] [place] (SBHLAB)[address] Bilirubin [Mass/Vol] 1.7 mg/dL High <1.2 [facility] Comment on above: Performed By: #### L AB17, [id number] ####Mammal Keeper: UNA ARCE ([id number])[facility] [place] (SBHLAB)[address] [place] [address] [place] Calcium [Mass/Vol] 8.2 mg/dL Low 8.8-10.0 [facility] Comment on above: Performed By: #### L AB17, [id number] ####Mammal Keeper: UNA ARCE ([id number])[facility] [place] (SBHLAB)[address] Chloride [Moles/Vol] 104 mmol/L Normal 98-107 [facility] Comment on above: Performed By: #### L AB17, [id number] ####Mammal Keeper: UNA ARCE ([id number])[facility] (SBHLAB)[address] CO2 [Moles/Vol] 26 mmol/L Normal 23-31 [facility] Comment on above: Performed By: #### L AB17, [id number] ####Mammal Keeper: UNA ARCE ([id number])[facility] (SBHLAB)[address] Creatinine [Mass/Vol] 1.44 mg/dL High 0.72-1.25 [facility] Comment on above: Performed By: #### L AB17, [id number] ####Mammal Keeper: UNA ARCE ([phone])[facility] (SBHLAB)[address] GLOMERULAR FILTRATION RATE ML/MIN/1.73 SQ M.PREDICTED 46.4 mL/min/1.73m*2 Low >60.0 [facility] Comment on above: Result Comment: Calc ulation based on the Chronic Kidney Disease Epidemiology Collaboration (CKD-EPI) equation refit without adjustment for race Performed By: #### L AB17, [id number] ####Mammal Keeper: UNA ARCE ([id number])[facility] (SBHLAB)[address] Glucose [Mass/Vol] 98 mg/dL Normal 82-115 [facility] Comment on above: Performed By: #### L AB17, [id number] ####Mammal Keeper: UNA ARCE ([phone])[facility] (SBHLAB)[address] Potassium [Moles/Vol] 4.2 mmol/L Normal 3.5-5.1 [facility] Comment on above: Result Comment: [facility] potassium values may be up to 0.5 mmol/L lower than serum values. Performed By: #### L AB17, [id number] ####Mammal Keeper: UNA MOHRCER ([id number])[facility] [place] (SBHLAB)[address] Protein [Mass/Vol] 6.1 g/dL Low 6.4-8.3 [facility] Comment on above: Performed By: #### L AB17, [id number] ####Mammal Keeper: UNA BERMUDEZPEDRO ([phone])[facility] [place] (SBHLAB)[address] Sodium [Moles/Vol] 143 mmol/L Normal 136-145 [facility] Comment on above: Performed By: #### L AB17, [id number] ####Mammal Keeper: UNA BERMUDEZPEDRO ([phone])[facility] [place] (SBHLAB)[address] Urea nitrogen [Mass/Vol] 24 mg/dL High 9-23 [facility] Comment on above: Performed By: #### L AB17, [id number] ####Mammal Keeper: UNA BERMUDEZPEDRO ([phone])[facility] [place] (SBHLAB)[address] ABDOMEN PELVIS WO IV CONT RASTon 04-06-2025 CT ABDOMEN PELVIS WO IV CONTRAST Normal [facility] CT Abdomen and Pelvis WO con traston 04-06-2025 [facility] Radiology Study observation (narrative) Lynette Balderrama alth CT Abdomen and Pelvis WO con trastOrdered By: Sergey Gooden on 04-06-2025 [facility] [employer] Phone: CT CHEST WO IV CONTRASTon CT CHEST WO IV CONTRAST Normal [facility] CT Chest WO contraston 04-06 [facility] Radiology Study observation (narrative) Monishaangel Balderrama alth CT Chest WO contrastOrdered By: Cari Lazaro on 04-06-2025 [facility] [employer] Phone: Consulton 04-06-2025 Consult Normal [facility] Consult Normal [facility] ECG 12-LEADon 04-06-2025 ECG 12-LEAD IMPRESSION: Sinus arrhythmia Nonspecific intraventricular conduction delay Probable anterolateral infarct, old No previous ECG for comparison Electronically Signed On 04-06-2025 01:54:21 EDT by Maik Laird Normal [facility] IRON AND TIBCon 04-06-2025 IRON BINDING CAPACITY 381 ug/dL Normal 250-450 [facility] Comment on above: Performed By: #### L [id number] ####Mammal Keeper: UNA ARCE ([id number])[facility] [place] (SBHLAB)[address] IRON SATURATION 49.3 % Normal 20.0-50.0 [facility] Comment on above: Performed By: #### L [id number] ####Mammal Keeper: UNA ARCE ([phone])[facility] [place] (SBHLAB)[address] IRON, TOTAL 188 ug/dL High 65-175 [facility] Comment on above: Performed By: #### L [id number] ####Mammal Keeper: UNA ARCE ([id number])[facility] [place] (SBHLAB)[address] Laboratory - Hematology and Cell countson 04-06-2025 Basophils (Bld) [#/Vol] 0.2 10*3/uL 0.0 - 0.2 10*3/uL [facility] Basophils/100 WBC (Bld) 2 % 0 - 2 % [facility] Lymphocytes (Bld) [#/Vol] 1.4 10*3/uL 1.0 - 4.3 10*3/uL [facility] Lymphocytes/100 WBC (Bld) 14 % Low 15 - 45 % [facility] Monocytes (Bld) [#/Vol] 0.7 10*3/uL 0.0 - 0.9 10*3/uL [facility] Monocytes/100 WBC (Bld) 7 % 5 - 13 % [facility] RBC morphology finding Nom (Bld) abnormal [facility] MAGNESIUMon 04-06-2025 Magnesium [Mass/Vol] 1.8 mg/dL Normal 1.6-2.6 [facility] Comment on above: Result Comment: ORDE R COMMENTS:Higher values can be expected in females during menses. Performed By: #### L AB17, [id number] ####Mammal Keeper: UNA ARCE ([phone])[facility] (SBHLAB)[address] MANUAL DIFFERENTIAL (CELLAVI BANDAR)on 04-06-2025 ANISOCYTOSIS PRESENCE IN BLOOD BY LIGHT MICROSCOPY Moderate Abnormal (none) [facility] Comment on above: Performed By: #### L [id number], [id number] ####Mammal Keeper: UNA ARCE ([phone])[facility] (SB[facility]AB)[address] BAND NEUTROPHILS TOTAL PER COUNTED LEUKOCYTES BY MANUAL COUNT 1 Normal [facility] Comment on above: Performed By: #### L [id number], [id number] ####Mammal Keeper: UNA ARCE ([phone])[facility] [place] (SBHLAB)[address] BANDS (10*3/UL) IN BLOOD-CELLAVISION 0.1 10*3/uL High <=0.0 [facility] Comment on above: Performed By: #### L [id number], [id number] ####Mammal Keeper: UNA ARCE ([phone])[facility] (SB[facility] [place] [address] [place] BASOPHILS (10*3/UL) IN BLOOD-CELLAVISION 0.2 10*3/uL Normal 0.0-0.2 [facility] Comment on above: Performed By: #### L [id number], [id number] ####Mammal Keeper: UNA ARCE ([id number])[facility] ([facility])[address] BASOPHILS TOTAL PER COUNTED LEUKOCYTES BY MANUAL COUNT 2 Normal [facility] Comment on above: Performed By: #### L [id number], [id number] ####Mammal Keeper: UNA YAZMIN ([id number])[facility] [place] (SBHLAB)[address] [place] [address] [place] BASOPHILS/100 LEUKOCYTES IN BLOOD-CELLAVISION 2 % Normal 0-2 [facility] Comment on above: Performed By: #### L [id number], [id number] ####Mammal Keeper: UNA BERMUDEZPEDRO ([id number])[facility] [place] (SBHLAB)[address] [place] [address] [place] BLASTS TOTAL PER COUNTED LEUKOCYTES BY MANUAL COUNT Normal [facility] Comment on above: Performed By: #### L [id number], [id number] ####Mammal Keeper: UNA BERMUDEZPEDRO ([id number])[facility] [place] (SBHLAB)[address] [place] [address] [place] EOSINOPHILS TOTAL PER COUNTED LEUKOCYTES BY MANUAL COUNT Normal [facility] Comment on above: Performed By: #### L [id number], [id number] ####Mammal Keeper: UNA BERMUDEZPEDRO ([phone])[facility] [place] (SBHLAB)[address] [place] [address] [place] HYPOCHROMIA (PRESENCE) IN BLOOD BY LIGHT MICROSCOPY Moderate Abnormal (none) [facility] Comment on above: Performed By: #### L [id number], [id number] ####Mammal Keeper: UNA BERMUDEZPEDRO ([phone])[facility] [place] (SBHLAB)[address] [place] [address] [place] LYMPHOCYTES (10*3/UL) IN BLOOD-CELLAVISION 1.4 10*3/uL Normal 1.0-4.3 [facility] Comment on above: Performed By: #### L [id number], [id number] ####Mammal Keeper: UNA BERMUDEZPEDRO ([phone])[facility] [place] ([facility])[address] [place] [address] [place] LYMPHOCYTES TOTAL PER COUNTED LEUKOCYTES BY MANUAL COUNT 14 Normal [facility] Comment on above: Performed By: #### L [id number], [id number] ####Mammal Keeper: UNA STAUFFERMELANIE ([phone])[facility] [place] ([facility])[address] [place] [address] [place] LYMPHOCYTES/100 LEUKOCYTES IN BLOOD-CELLAVISION 14 % Low 15-45 [facility] Comment on above: Performed By: #### L [id number], [id number] ####Mammal Keeper: UNA BERMUDEZPEDRO ([phone])[facility] [place] ([facility])[address] [place] [address] [place] METAMYELOCYTES TOTAL PER COUNTED LEUKOCYTES BY MANUAL COUNT Normal [facility] Comment on above: Performed By: #### L [id number], [id number] ####Mammal Keeper: UNA BERMUDEZPEDRO ([phone])[facility] [place] ([facility])[address] [place] [address] [place] MICROCYTES (PRESENCE) IN BLOOD BY LIGHT MICROSCOPY Slight Abnormal (none) [facility] Comment on above: Performed By: #### L [id number], [id number] ####Mammal Keeper: UNA BERMUDEZPEDRO ([phone])[facility] [place] ([facility])[address] [place] [address] [place] MONOCYTES (10*3/UL) IN BLOOD-CELLAVISION 0.7 10*3/uL Normal 0.0-0.9 [facility] Comment on above: Performed By: #### L [id number], [id number] ####Mammal Keeper: UNA ARCE ([phone])[facility] [place] ([facility])[address] [place] [address] [place] MONOCYTES TOTAL PER COUNTED LEUKOCYTES BY MANUAL COUNT 7 Normal [facility] Comment on above: Performed By: #### L [id number], [id number] ####Mammal Keeper: UNA STAUFFERMELANIE ([phone])[facility] [place] ([facility])[address] [place] [address] [place] MONOCYTES/100 LEUKOCYTES IN BLOOD-LUCIANA 7 % Normal 5-13 [facility] Comment on above: Performed By: #### L [id number], [id number] ####Mammal Keeper: UNA ARCE ([id number])[facility] [place] ([facility])[address] [place] [address] [place] MYELOCYTES COUNTED BY MANUAL COUNT Normal [facility] Comment on above: Performed By: #### L [id number], [id number] ####Mammal Keeper: UNA ARCE ([phone])[facility] [place] ([facility])[address] [place] [address] [place] NEUTROPHILS BAND FORM/100 LEUKOCYTES IN BLOOD-CELLAVISI 1 % High <=0 [facility] Comment on above: Performed By: #### L [id number], [id number] ####Mammal Keeper: UNA ARCE ([phone])[facility] [place] ([facility])[address] [place] [address] [place] NEUTROPHILS TOTAL PER COUNTED LEUKOCYTES BY MANUAL COUNT 79 Normal [facility] Comment on above: Performed By: #### L [id number], [id number] ####Mammal Keeper: UNA ARCE ([phone])[facility] [place] ([facility])[address] [place] [address] [place] NUCLEATED ERYTHROCYTES/100 LEUKOCTES IN BLOOD-CELLAVISION 1 % Normal 0-2 [facility] Comment on above: Performed By: #### L [id number], [id number] ####Mammal Keeper: UNA ARCE ([phone])[facility] [place] ([facility])[address] [place] [address] [place] POIKILOCYTOSIS (PRESENCE) IN BLOOD BY LIGHT MICROSCOPY Slight Abnormal (none) [facility] Comment on above: Performed By: #### L [id number], [id number] ####Mammal Keeper: UNA ARCE ([id number])[facility] [place] ([facility])[address] [place] [address] [place] PROMYELOCYTES TOTAL PER COUNTED LEUKOCYTES BY MANUAL COUNT Normal [facility] Comment on above: Performed By: #### L [id number], [id number] ####Mammal Keeper: UNA ARCE ([phone])[facility] [place] ([facility])[address] [place] [address] [place] RBC MORPHOLOGY IN BLOOD abnormal Normal [facility] Comment on above: Performed By: #### L [id number], [id number] ####Mammal Keeper: UNA ARCE ([phone])[facility] [place] ([facility])[address] [place] [address] [place] SEGMENTED NEUTROPHILS (10*3/UL) IN BLOOD-CELLAVISION 8.0 10*3/uL High 1.8-7.5 [facility] Comment on above: Performed By: #### L [id number], [id number] ####Mammal Keeper: UNA ARCE ([id number])[facility] [place] ([facility])[address] [place] [address] [place] SEGMENTED NEUTROPHILS/100 LEUKOCYTES-CE 77 % Normal 38-82 [facility] Comment on above: Performed By: #### L [id number], [id number] ####Mammal Keeper: UNA ARCE ([phone])[facility] [place] ([facility])[address] [place] [address] [place] STOMATOCYTES IN BLOOD BY LIGHT MICROSCOPY Slight Abnormal (none) [facility] Comment on above: Performed By: #### L [id number], [id number] ####Mammal Keeper: UNA ARCE ([id number])[facility] [place] ([facility])[address] [place] [address] [place] UNCLASSIFIED CELLS TOTAL PER COUNTED LEUKOCYTES BY MANUAL COUNT Comment on above: Performed By: #### L [id number], [id number] ####Mammal Keeper: UNA ARCE ([id number])[facility] [place] ([facility])[address] [place] [address] [place] VARIANT LYMPHOCYTES TOTAL PER COUNTED LEUKOCYTES BY MANUAL COUNT Normal [facility] Comment on above: Performed By: #### L [id number], [id number] ####Mammal Keeper: UNA ARCE ([phone])[facility] [place] ([facility])[address] [place] [address] [facility] Nursing Noteon 04-06-2025 Nursing Note Normal [facility] Nursing Note Transfused two pint of blood. No any allergic reaction seen.vital signs are within normal limits. Normal [facility] Progress Noteon 04-06-2025 Progress Note [facility] Progress Note [facility] US Heart TransthoracicOrdere d By: Thomas Hinton on 04-06-2025 Ao Root Index 1.47 cm/m2 [facility] Work Phone: Aortic Root 3 cm [facility] Work Phone: Aortic valve Mean systole pressure gradient by US.doppler derived full Bernoulli 7 mmHg [facility] Work Phone: Aortic valve Orifice area by US 3.1 cm2 [facility] Work Phone: Aortic valve Peak systolic flow by US.doppler 1.3 m/s [facility] Work Phone: Ascending Aorta 3.1 cm [facility] Work Phone: Ascending Aorta Index 1.52 cm/m2 [facility] Work Phone: AV Area by Peak Velocity 1.5 cm2 [facility] Work Phone: AV Area by VTI 1.3 cm2 [facility] Work Phone: AV Peak Gradient 15 mmHg [facility] Work Phone: AV Peak Velocity 1.9 m/s [facility] Work Phone: AV Velocity Ratio 0.47 [facility] Work Phone: AV VTI 37.4 cm [facility] Work Phone: JULIET/BSA Peak Velocity 0.7 cm2/m2 [facility] Work Phone: JULIET/BSA VTI 0.6 cm2/m2 [facility] Work Phone: E/E' Lateral 23 [facility] Work Phone: Est. RA Pressure 15 mmHg [facility] Work Phone: Fractional Shortening 2D 8 % 28 - 44 % [facility] Work Phone: Interpretation and review of laboratory results Abnormal [facility] Work Phone: IVSd 1.1 cm Abnormal 0.6 - 1.0 cm [facility] Work Phone: LA Diameter 4 cm [facility] Work Phone: LA Size Index 1.96 cm/m2 [facility] Work Phone: LA Volume 4C 56 mL 18 - 58 mL [facility] Work Phone: LA Volume Index 4C 27 mL/m2 16 - 34 mL/m2 [facility] Work Phone: LA/AO Root Ratio 1.33 [facility] Work Phone: Left ventricular Ejection fraction by US.2D+Calculated by biplane method of disks 22 % Abnormal 55 - 100 % [facility] Work Phone: LV E' Lateral Velocity 5 cm/s [facility] Work Phone: LV EDV A2C 331 mL [facility] Work Phone: LV EDV A4C 293 mL [facility] Work Phone: LV EDV BP 315 mL Abnormal 67 - 155 mL [facility] Work Phone: LV EDV Index A2C 162 mL/m2 [facility] Work Phone: LV EDV Index A4C 144 mL/m2 [facility] Work Phone: LV EDV Index BP 154 mL/m2 [facility] Work Phone: LV Ejection Fraction A2C 26 % [facility] Work Phone: LV Ejection Fraction A4C 22 % [facility] Work Phone: LV ESV A2C 245 mL [facility] Work Phone: LV ESV A4C 229 mL [facility] Work Phone: LV ESV BP 247 mL Abnormal 22 - 58 mL [facility] Work Phone: LV ESV Index A2C 120 mL/m2 [facility] Work Phone: LV ESV Index A4C 112 mL/m2 [facility] Work Phone: LV ESV Index BP 121 mL/m2 [facility] Work Phone: LV Mass 2D 246.9 g Abnormal 88 - 224 g [facility] Work Phone: LV Mass 2D Index 121 g/m2 Abnormal 49 - 115 g/m2 [facility] Work Phone: LV RWT Ratio 0.3 [facility] Work Phone: LVIDd 6 cm Abnormal 4.2 - 5.9 cm [facility] Work Phone: LVIDd Index 2.94 cm/m2 [facility] Work Phone: LVIDs 5.5 cm [facility] Work Phone: LVIDs Index 2.7 cm/m2 [facility] Work Phone: LVOT Cardiac Output 3.2 liter/minute [facility] Work Phone: LVOT Diameter 2 cm [facility] Work Phone: LVOT Mean Gradient 2 mmHg [facility] Work Phone: LVOT Peak Gradient 3 mmHg [facility] Work Phone: LVOT Peak Velocity 0.9 m/s [facility] Work Phone: LVOT Stroke Volume Index 23.2 mL/m2 [facility] Work Phone: LVOT SV 47.4 ml [facility] Work Phone: LVOT VTI 15.1 cm [facility] Work Phone: LVOT:AV VTI Index 0.4 [facility] Work Phone: LVPWd 0.9 cm 0.6 - 1.0 cm [facility] Work Phone: MR VTI 139.2 cm [facility] Work Phone: MV A Velocity 1.12 m/s [facility] Work Phone: MV E Velocity 1.15 m/s [facility] Work Phone: MV E Wave Deceleration Time 179.2 ms [facility] Work Phone: MV E/A 1.03 [facility] Work Phone: MV Nyquist Velocity 36 cm/s [facility] Work Phone: MV Regurg Velocity PISA 4.6 m/s [facility] Work Phone: RA Area 4C 34.5 mL [facility] Work Phone: RV Free Wall Peak S' 13 cm/s [facility] Work Phone: RVSP 66 mmHg [facility] Work Phone: TAPSE 2.4 cm 1.7 cm [facility] Work Phone: TR Max Velocity 3.58 m/s [facility] Work Phone: TR Peak Gradient 51 mmHg [facility] Work Phone: [facility] Work Phone: US Heart Transthoracicon CV CPACS BASIC METABOLIC PANELon 03-10 Anion gap [Moles/Vol] 8 mmol/L Normal 3-13 [facility] Comment on above: Performed By: #### L [id number], LAB15, [id number], LAB20, LAB69, [id number], [id number], LAB89 ####Mammal Keeper: UNA ARCE ([phone])[facility] [place] (SB[facility])[address] Calcium [Mass/Vol] 8.4 mg/dL Low 8.8-10.0 [facility] Comment on above: Performed By: #### L AB67, LAB15, [id number], LAB20, LAB69, [id number], [id number], LAB89 ####Mammal Keeper: UNA ARCE ([phone])[facility] (SBHLAB)[address] Chloride [Moles/Vol] 105 mmol/L Normal 98-107 [facility] Comment on above: Performed By: #### L AB67, LAB15, UYG019, LAB20, LAB69, [id number], [id number], LAB89 ####Mammal Keeper: UNA ARCE ([phone])[facility] (SBHLAB)[address] CO2 [Moles/Vol] 27 mmol/L Normal 23-31 [facility] Comment on above: Performed By: #### L AB67, LAB15, [id number], LAB20, LAB69, [id number], [id number], LAB89 ####Mammal Keeper: UNA ARCE ([phone])[facility] (SBHL[facility])[address] Creatinine [Mass/Vol] 1.46 mg/dL High 0.72-1.25 [facility] Comment on above: Performed By: #### L AB67, LAB15, [id number], LAB20, LAB69, [id number], [id number], LAB89 ####Mammal Keeper: UNA ARCE ([phone])[facility] (SB[facility])[address] GLOMERULAR FILTRATION RATE ML/MIN/1.73 SQ M.PREDICTED 45.7 mL/min/1.73m*2 Low >60.0 [facility] Comment on above: Result Comment: Calc ulation based on the Chronic Kidney Disease Epidemiology Collaboration (CKD-EPI) equation refit without adjustment for race Performed By: #### L AB67, LAB15, [id number], LAB20, LAB69, [id number], [id number], LAB89 ####Mammal Keeper: UNA ARCE ([phone])[facility] (SB[facility])[address] Glucose [Mass/Vol] 108 mg/dL Normal 82-115 [facility] Comment on above: Performed By: #### L AB67, LAB15, [id number], LAB20, LAB69, [id number], [id number], LAB89 ####Mammal Keeper: UNA ARCE ([phone])[facility] (SBHL[facility])[address] Potassium [Moles/Vol] 4.5 mmol/L Normal 3.5-5.1 [facility] Comment on above: Result Comment: [facility] potassium values may be up to 0.5 mmol/L lower than serum values. Performed By: #### L AB67, LAB15, EHV405, LAB20, LAB69, QSH129, [id number], LAB89 ####Mammal Keeper: UNA ARCE ([phone])[facility] Sodium [Moles/Vol] 140 mmol/L Normal 136-145 [facility] Comment on above: Performed By: #### L AB67, LAB15, GMN170, LAB20, LAB69, KQS400, [id number], LAB89 ####Mammal Keeper: UNA ARCE ([phone])[facility] (HLAB)[address] Urea nitrogen [Mass/Vol] 24 mg/dL High 9-23 [facility] Comment on above: Performed By: #### L AB67, LAB15, [id number], LAB20, LAB69, EHT308, [id number], LAB89 ####Mammal Keeper: UNA ARCE ([id number])[facility] (HLAB)[address] BLOOD TYPE AND SCREEN GELon 04-05-2025 ABO GROUPING A Normal [facility] Comment on above: Performed By: #### L [id number] ####Mammal Keeper: UNA ARCE ([phone])[facility] ([facility])[address] [place] [address] RH TYPE IN BLOOD Negative Normal [facility] Comment on above: Performed By: #### L [id number] ####Mammal Keeper: UNA ARCE ([phone])[facility] ([facility])[address] CBC WITH AUTO DIFFERENTIALon 04-05-2025 Erythrocyte distribution width (RBC) [Ratio] 19.9 % High 11.5-15.0 [facility] Comment on above: Performed By: #### L [id number], [id number], [id number] ####Mammal Keeper: UNA ARCE ([phone])[facility] ([facility])[address] [place] [address] Hematocrit (Bld) [Volume fraction] 20.7 % Low 40.0-52.0 [facility] Comment on above: Performed By: #### L [id number], [id number], [id number] ####Mammal Keeper: UNA ARCE ([phone])[facility] ([facility])[address] [place] [address] Hemoglobin (Bld) [Mass/Vol] 5.5 g/dL Critically low 13.0-18.0 [facility] Comment on above: Performed By: #### L [id number], [id number], [id number] ####Mammal Keeper: UNA ARCE ([phone])[facility] [place] [address] MCH (RBC) [Entitic mass] 19.4 pg Low 26.0-34.0 [facility] Comment on above: Performed By: #### L AB296, [id number], [id number] ####Mammal Keeper: UNA ARCE ([phone])[facility] (SB[facility])[address] MCHC 26.6 % Low 30.5-36.0 [facility] Comment on above: Performed By: #### L AB296, [id number], [id number] ####Mammal Keeper: UNA ARCE ([id number])[facility] (SBHLAB)[address] MCV (RBC) [Entitic vol] 73.1 fL Low 77.0-99.0 [facility] Comment on above: Performed By: #### L AB296, [id number], [id number] ####Mammal Keeper: UNA ARCE ([phone])[facility] (SB[facility])[address] Platelet mean volume (Bld) [Entitic vol] 9.4 fL Normal 9.0-12.7 [facility] Comment on above: Performed By: #### Gilbert AB296, [id number], [id number] ####Mammal Keeper: UNA ARCE ([phone])[facility] ([facility])[address] Platelets (Bld) [#/Vol] 358 10*3/uL Normal 140-440 [facility] Comment on above: Performed By: #### L AB296, [id number], [id number] ####Mammal Keeper: UNA ARCE ([phone])[facility] ([facility])[address] RBC (Bld) [#/Vol] 2.83 10*6/uL Low 4.40-5.90 [facility] Comment on above: Performed By: #### L AB296, [id number], [id number] ####Mammal Keeper: UNA ARCE ([id number])[facility] [place] ([facility])[address] WBC (Bld) [#/Vol] 10.0 10*3/uL Normal 3.6-10.7 [facility] Comment on above: Performed By: #### L AB296, [id number], [id number] ####Mammal Keeper: UNA ARCE ([phone])[facility] (SB[facility])[address] [place] [address] ED Provider Noteon ED Provider Note Normal [facility] FERRITINon 04-05-2025 Ferritin [Mass/Vol] 19 ng/mL Low 22-275 [facility] Comment on above: Result Comment: YARELI [place] COMMENTS:Ferritin levels below 10 ng/mL have been reported as indicative of iron deficiency anemia. Performed By: #### L [id number], LAB18, LAB68 ####Mammal Keeper: UNA ARCE ([phone])[facility] ([facility])[address] [place] [address] FOLATEon 04-05-2025 FOLATE RESULT 13.7 ng/mL Normal 7.0-31.4 [facility] Comment on above: Performed By: #### L AB67, LAB15, HQM528, LAB20, LAB69, GMG653, [id number], LAB89 ####Mammal Keeper: UNA ARCE ([id number])[facility] ([facility])[address] [place] [address] HAPTOGLOBINon 04-05-2025 HAPTOGLOBIN 226 mg/dL Normal 50-270 [facility] Comment on above: Performed By: #### L AB67, LAB15, FTX155, LAB20, LAB69, FYQ191, [id number], LAB89 ####Mammal Keeper: UNA ARCE ([phone])[facility] ([facility])[address] [place] [address] HEPATIC FUNCTION PANELon Albumin [Mass/Vol] 2.7 g/dL Low 3.4-4.8 [facility] Comment on above: Performed By: #### L AB67, LAB15, WPL355, LAB20, LAB69, BHM313, [id number], LAB89 ####Mammal Keeper: UNA ARCE ([phone])[facility] ([facility])[address] ALP [Catalytic activity/Vol] 65 U/L Normal 40-150 [facility] Comment on above: Performed By: #### L AB67, LAB15, PGW646, LAB20, LAB69, WRS555, [id number], LAB89 ####Mammal Keeper: UNA ARCE ([phone])[facility] (HLAB)[address] ALT [Catalytic activity/Vol] 7 U/L Normal <40 [facility] Comment on above: Performed By: #### L AB67, LAB15, HUF439, LAB20, LAB69, WUB636, [id number], LAB89 ####Mammal Keeper: UNA ARCE ([id number])[facility] AST [Catalytic activity/Vol] 22 U/L Normal <34 [facility] Comment on above: Performed By: #### L AB67, LAB15, SXC183, LAB20, LAB69, OVM877, [id number], LAB89 ####Mammal Keeper: UNA ARCE ([phone])[facility] ([facility])[address] Bilirubin [Mass/Vol] 0.5 mg/dL Normal <1.2 [facility] Comment on above: Performed By: #### L AB67, LAB15, OWE465, LAB20, LAB69, ERI800, [id number], LAB89 ####Mammal Keeper: UNA ARCE ([id number])[facility] ([facility])[address] [place] [address] [place] Bilirubin.indirect [Mass/Vol] 0.2 mg/dL Normal <0.5 [facility] Comment on above: Performed By: #### L AB67, LAB15, CRT313, LAB20, LAB69, TCD959, [id number], LAB89 ####Mammal Keeper: UNA ARCE ([phone])[facility] [place] [address] Protein [Mass/Vol] 6.4 g/dL Normal 6.4-8.3 [facility] Comment on above: Result Comment: Seru m protein values are higher than plasma values. Samples from recumbent persons are lower by up to 0.5 g/dL as compared to ambulatory persons. After 60 years values are lower by up to 0.2 g/dL. Performed By: #### L AB67, LAB15, EGD387, LAB20, LAB69, AJP585, [id number], LAB89 ####Mammal Keeper: UNA ARCE ([phone])[facility] ([facility])[address] [place] [address] HIGH SENSITIVITY TROPONIN, S ERIAL BASELINEon 04-05-2025 TROPONIN HS SERIAL BASELINE 29 ng/L Normal <=35 [facility] Comment on above: Result Comment: In i ndividuals presenting with symptoms > 2h, a baseline troponin <= 5 ng/L suggests acutecardiac injury is unlikely and further serial testing is generally not indicated. Performed By: #### L [id number] ####Mammal Keeper: UNA ARCE ([id number])[facility] ([facility])[address] [place] [address] TROPONIN HS SERIAL BASELINE 30 ng/L Normal <=35 [facility] Comment on above: Result Comment: In i ndividuals presenting with symptoms > 2h, a baseline troponin <= 5 ng/L suggests acutecardiac injury is unlikely and further serial testing is generally not indicated. Performed By: #### L AB67, LAB15, LXC977, LAB20, LAB69, RSK596, [id number], LAB89 ####Mammal Keeper: UNA ARCE ([id number])[facility] ([facility])[address] [place] [address] HIGH SENSITIVITY TROPONIN, S ERIAL, SECOND TESTon 04-05-2025 2H TROPONIN HS (SERIAL 2ND TROPONIN) 28 ng/L Normal <=35 [facility] Comment on above: Result Comment: 2h t roponin (2nd troponin) samples collected between 1h 40 min and 2h and 20 min of the baseline collection time can be utilized to interpret delta troponins as per [facility] algorithms. Samples collected outside this timeframe need to be interpreted clinically.Rising or falling troponin delta below 2 ng/L as compared to baseline value suggests thatacute cardiac injury is unlikely. Performed By: #### L [id number], LAB18, LAB68 ####Mammal Keeper: UNA ARCE ([phone])[facility] [place] ([facility])[address] LIPID PANELon 04-05-2025 Cholesterol [Mass/Vol] 89 mg/dL Normal <200 [facility] Comment on above: Performed By: #### Gilbert [id number], LAB18, LAB68 ####Mammal Keeper: UNA ARCE ([phone])[facility] [place] ([facility])[address] Cholesterol in HDL [Mass/Vol] 29 mg/dL Low >=60 [facility] Comment on above: Performed By: #### Gilbert [id number], LAB18, LAB68 ####Mammal Keeper: UNA ARCE ([phone])[facility] (SBHLAB)[address] Cholesterol.total/Choles terol in HDL [Mass ratio] 3 {ratio} Normal [facility] Comment on above: Result Comment: Ref Range:< 3 Low Risk for CHD3-6 Mod Risk for CHD> 6 High Risk for CHD Performed By: #### L [id number], LAB18, LAB68 ####Mammal Keeper: UNA ARCE ([phone])[facility] [facility]OSPITALAngel [facility]PITAL[facility] (SBHLAB)[address] LOW DENSITY LIPOPROTEIN 48 mg/dL Normal 0-<100 [facility] Comment on above: Performed By: #### L [id number], [id number], LAB68 ####Mammal Keeper: UNA ARCE ([id number])[facility]PITALAngel [facility] CENTERLUIS (SBHLAB)[address] NON-HDL CHOLESTEROL, CALCULATED 60 Normal <130 [facility] Comment on above: Performed By: #### L [id number], [id number], LAB68 ####Mammal Keeper: UNA ARCE ([id number])[facility] [place] (SBHLAB)[address] Triglyceride [Mass/Vol] 60 mg/dL Normal <150 [facility] Comment on above: Performed By: #### L [id number], [id number], LAB68 ####Mammal Keeper: UNA ARCE ([id number])[facility]ITALA [facility]ITALN (SBHLAB)[address] VERY LOW DENSITY LIPOPROTEIN, CALCULATED 12 mg/dL Normal <=30 [facility] Comment on above: Performed By: #### L [id number], LAB18, LAB68 ####Mammal Keeper: UNA ARCE ([id number])[facility] [place] (SBHLAB)[address] MANUAL DIFFERENTIAL (CELLAVI BANDAR)on 04-05-2025 ANISOCYTOSIS PRESENCE IN BLOOD BY LIGHT MICROSCOPY Moderate Abnormal (none) [facility] Comment on above: Performed By: #### L [id number], [id number], [id number] ####Mammal Keeper: UNA ARCE ([id number])[facility] (SBHLAB)[address] [place] [address] BAND NEUTROPHILS TOTAL PER COUNTED LEUKOCYTES BY MANUAL COUNT Comment on above: Performed By: #### L [id number], [id number], [id number] ####Mammal Keeper: UNA ARCE ([id number])[facility] [place] (SBHLAB)[address] BASOPHILS TOTAL PER COUNTED LEUKOCYTES BY MANUAL COUNT Comment on above: Performed By: #### L [id number], [id number], [id number] ####Mammal Keeper: UNA ARCE ([id number])[facility] [place] (SBHLAB)155 [place] [address] [place] BLASTS TOTAL PER COUNTED LEUKOCYTES BY MANUAL COUNT Normal [facility] Comment on above: Performed By: #### L [id number], [id number], [id number] ####Mammal Keeper: UNA ARCE ([id number])[facility] [place] (SBHLAB)[address] EOSINOPHILS TOTAL PER COUNTED LEUKOCYTES BY MANUAL COUNT Normal [facility] Comment on above: Performed By: #### L [id number], [id number], [id number] ####Mammal Keeper: UNA ARCE ([phone])[facility] [place] (SBHLAB)[address] HYPOCHROMIA (PRESENCE) IN BLOOD BY LIGHT MICROSCOPY Moderate Abnormal (none) [facility] Comment on above: Performed By: #### L [id number], [id number], [id number] ####Mammal Keeper: UNA ARCE ([phone])[facility] [place] (SBHLAB)155 [place] [address] [place] LYMPHOCYTES (10*3/UL) IN BLOOD-CELLAVISION 1.4 10*3/uL Normal 1.0-4.3 [facility] Comment on above: Performed By: #### L [id number], [id number], [id number] ####Mammal Keeper: UNA ARCE ([id number])[facility] [place] (SBHLAB)155 [place] [address] [place] LYMPHOCYTES TOTAL PER COUNTED LEUKOCYTES BY MANUAL COUNT 15 Normal [facility] Comment on above: Performed By: #### L [id number], [id number], [id number] ####Mammal Keeper: UNA ARCE ([id number])[facility] [place] (SBHLAB)155 [place] [address] [place] LYMPHOCYTES/100 LEUKOCYTES IN BLOOD-CELLAVISION 14 % Low 15-45 [facility] Comment on above: Performed By: #### L [id number], [id number], [id number] ####Mammal Keeper: UNA ARCE ([id number])[facility] [place] (SBHLAB)155 [place] [address] [place] METAMYELOCYTES TOTAL PER COUNTED LEUKOCYTES BY MANUAL COUNT Normal [facility] Comment on above: Performed By: #### L [id number], [id number], [id number] ####Mammal Keeper: UNA BERMUDEZPEDRO ([id number])[facility] [place] (SBHLAB)155 [place] [address] [place] MICROCYTES (PRESENCE) IN BLOOD BY LIGHT MICROSCOPY Slight Abnormal (none) [facility] Comment on above: Performed By: #### L [id number], [id number], [id number] ####Mammal Keeper: UNA BERMUDEZPEDRO ([id number])[facility] [place] (SBHLAB)155 [place] [address] [place] MONOCYTES (10*3/UL) IN BLOOD-CELLAVISION 1.3 10*3/uL High 0.0-0.9 [facility] Comment on above: Performed By: #### L [id number], [id number], [id number] ####Mammal Keeper: UNA BERMUDEZPEDRO ([phone])[facility] [place] (SBHLAB)155 [place] [address] [place] MONOCYTES TOTAL PER COUNTED LEUKOCYTES BY MANUAL COUNT 14 Normal [facility] Comment on above: Performed By: #### L [id number], [id number], [id number] ####Mammal Keeper: UNA BERMUDEZPEDRO ([id number])[facility] [place] (SBHLAB)155 [place] [address] [place] MONOCYTES/100 LEUKOCYTES IN BLOOD-LUCIANA 13 % Normal 5-13 [facility] Comment on above: Performed By: #### L [id number], [id number], [id number] ####Mammal Keeper: UNA STAUFFERMELANIE ([id number])[facility] [place] (SBHLAB)155 [place] [address] [place] MYELOCYTES COUNTED BY MANUAL COUNT Normal [facility] Comment on above: Performed By: #### L [id number], [id number], [id number] ####Mammal Keeper: UNA YAZMIN ([id number])[facility] [place] (SBHLAB)155 [place] [address] [place] NEUTROPHILS TOTAL PER COUNTED LEUKOCYTES BY MANUAL COUNT 76 Normal [facility] Comment on above: Performed By: #### L [id number], [id number], [id number] ####Mammal Keeper: UNA YAZMIN ([id number])[facility] [place] (SBHLAB)155 [place] [address] [place] NUCLEATED ERYTHROCYTES/100 LEUKOCTES IN BLOOD-CELLAVISION 1 % Normal 0-2 [facility] Comment on above: Performed By: #### L [id number], [id number], [id number] ####Mammal Keeper: UNAANJEL ARCE ([id number])[facility] [place] (SBHLAB)155 [place] [address] [place] OVALOCYTES PRESENCE IN BLOOD BY LIGHT MICROSCOPY Slight Abnormal (none) [facility] Comment on above: Performed By: #### L [id number], [id number], [id number] ####Mammal Keeper: UNA YAZMIN ([id number])[facility] [place] (SBHLAB)155 [place] [address] [place] POIKILOCYTOSIS (PRESENCE) IN BLOOD BY LIGHT MICROSCOPY Moderate Abnormal (none) [facility] Comment on above: Performed By: #### L [id number], [id number], [id number] ####Mammal Keeper: UNA YAZMIN ([id number])[facility] [place] (SBHLAB)155 [place] [address] [place] PROMYELOCYTES TOTAL PER COUNTED LEUKOCYTES BY MANUAL COUNT Normal [facility] Comment on above: Performed By: #### L [id number], [id number], [id number] ####Mammal Keeper: UNA YAZMIN ([id number])[facility] [place] (SBHLAB)155 [place] [address] [place] RBC MORPHOLOGY IN BLOOD abnormal Normal [facility] Comment on above: Performed By: #### L [id number], [id number], [id number] ####Mammal Keeper: UNA ARCE ([id number])[facility] [place] (SBHLAB)155 [place] [address] [place] SEGMENTED NEUTROPHILS (10*3/UL) IN BLOOD-CELLAVISION 7.2 10*3/uL Normal 1.8-7.5 [facility] Comment on above: Performed By: #### L [id number], [id number], [id number] ####Mammal Keeper: UNA ARCE ([id number])[facility] [place] (SBHLAB)155 [place] [address] [place] SEGMENTED NEUTROPHILS/100 LEUKOCYTES-CE 72 % Normal 38-82 [facility] Comment on above: Performed By: #### L [id number], [id number], [id number] ####Mammal Keeper: UNA ARCE ([id number])[facility] [place] (SBHLAB)155 [place] [address] [place] STOMATOCYTES IN BLOOD BY LIGHT MICROSCOPY Moderate Abnormal (none) [facility] Comment on above: Performed By: #### L [id number], [id number], [id number] ####Mammal Keeper: UNA ARCE ([id number])[facility] [place] (SBHLAB)[address] TARGET CELLS IN BLOOD BY LIGHT MICROSCOPY Slight Abnormal (none) [facility] Comment on above: Performed By: #### L [id number], [id number], [id number] ####Mammal Keeper: UNA ARCE ([id number])[facility] [place] (SBHLAB)155 [place] [address] [place] UNCLASSIFIED CELLS TOTAL PER COUNTED LEUKOCYTES BY MANUAL COUNT Normal [facility] Comment on above: Performed By: #### L [id number], [id number], [id number] ####Mammal Keeper: UNA ARCE ([id number])[facility] [place] (SBHLAB)155 [place] [address] [place] VARIANT LYMPHOCYTES TOTAL PER COUNTED LEUKOCYTES BY MANUAL COUNT Normal [facility] Comment on above: Performed By: #### L AB296, [id number], [id number] ####Mammal Keeper: UNA ARCE ([id number])LYNETTE BASHIRMarisol (SBHLAB)[address] NT PRO BNPon 04-05-2025 Natriuretic peptide B (Bld) [Mass/Vol] 8438 pg/mL High <450 [facility] Comment on above: Performed By: #### L AB67, LAB15, [id number], LAB20, LAB69, [id number], [id number], LAB89 ####Mammal Keeper: UNA ARCE ([id number])[facility]PITALAngel SANCHEZLUIS (SBHLAB)[address] RETICULOCYTESon 04-05-2025 Reticulocytes/100 RBC (Bld) 2.31 % Normal [facility] Comment on above: Result Comment: Newb orn < 5%Adults 0.4 - 2.0% Performed By: #### L [id number], [id number], [id number] ####Mammal Keeper: UNA ARCE ([id number])[facility]PITALAngel SANCHEZLUIS (SBHLAB)[address] THYROID STIMULATING HORMONEo n 04-05-2025 THYROID STIMULATING HORMONE 10.19 uIU/mL High 0.35-4.94 [facility] Comment on above: Performed By: #### L AB67, LAB15, [id number], LAB20, LAB69, [id number], [id number], LAB89 ####Mammal Keeper: UNA ARCE ([id number])[facility]ITALAngel SANCHEZLUIS (SBHLAB)[address] VITAMIN B12on 04-05-2025 Cobalamin (Vitamin B12) [Mass/Vol] 817 pg/mL High 213-816 [facility] Comment on above: Performed By: #### L AB67, LAB15, [id number], LAB20, LAB69, [id number], [id number], LAB89 ####Mammal Keeper: UNA ARCE ([id number])LYNETTE ESCOTO (SBHLAB)[address] Vital Signs Date Time Vital Sign Value Performing Clinician Annalisai gerson 07-19-2025 19:12-0500 Diastolic blood pressure 78 mm[Hg] Josefina Rose MD Work Phone: [facility] [place] 07-19-2025 19:12-0500 Heart rate 75 /min Josefina Rose MD Work Phone: [facility] [place] 07-19-2025 19:12-0500 Respiratory rate 17 /min Josefina Rose MD Work Phone: [facility] [place] 07-19-2025 19:12-0500 SaO2% (BldA) [Mass fraction] 100 % Josefina Rose MD Work Phone: [facility] [place] 07-19-2025 19:12-0500 Systolic blood pressure 117 mm[Hg] Josefina Rose MD Work Phone: [facility] [place] 07-19-2025 17:02-0500 Body temperature 98.1 [degF] Josefina Rose MD Work Phone: [facility] [place] 06-22-2025 02:11-0400 Diastolic blood pressure 57 mm[Hg] S[facility]ash [facility] 06-22-2025 02:11-0400 Heart rate 54 /min Sagar Gombash DO Work Phone: [facility] 06-22-2025 02:11-0400 Respiratory rate 18 /min Sagar Gombash DO Work Phone: [facility] [place] 06-22-2025 02:11-0400 SaO2% (BldA) [Mass fraction] 97 % Sagar Gombash DO Work Phone: [facility] 06-22-2025 02:11-0400 Systolic blood pressure 105 mm[Hg] Sagar Gombash DO Work Phone: [facility] 06-22-2025 00:31-0400 Body temperature 98.2 [degF] Sagar Gombash DO Work Phone: [facility] [place] 06-17-2025 10:47-0400 SaO2% (BldA) [Mass fraction] 95 % Eber Hess MD Work Phone: [facility] [place] 06-17-2025 10:27-0400 Body height 174 cm Eber Hess MD Work Phone: [facility] [place] 06-17-2025 10:27-0400 Body mass index (BMI) [Ratio] 27.3 kg/m2 Eber Hess MD Work Phone: [facility] 06-17-2025 10:27-0400 Body weight 82.64 kg Eber Hess MD Work Phone: [facility] [place] 06-17-2025 10:27-0400 Diastolic blood pressure 58 mm[Hg] Eber Hess MD Work Phone: [facility] 06-17-2025 10:27-0400 Heart rate 70 /min Eber Hess MD Work Phone: [facility] [place] 06-17-2025 10:27-0400 Systolic blood pressure 110 mm[Hg] Eber Hess MD Work Phone: [facility] [place] 05-03-2025 10:13-0400 Body height 174 cm Alejandro Jonnyynkary APR N - DIRECTOR SECURITY RISK MANAGEMENT Work Phone: [facility] [place] 05-03-2025 10:13-0400 Body mass index (BMI) [Ratio] 28.09 kg/m2 Alejandro Queen KINDERGARTEN ASSISTANT - DIRECTOR SECURITY RISK MANAGEMENT Work Phone: [facility] [place] 05-03-2025 10:13-0400 Body weight 85.05 kg Alejandro Jonnyynick APR N - DIRECTOR SECURITY RISK MANAGEMENT Work Phone: [facility] [place] 05-03-2025 10:13-0400 Diastolic blood pressure 62 mm[Hg] Alejandro Jonnyynick KINDERGARTEN ASSISTANT - DIRECTOR SECURITY RISK MANAGEMENT Work Phone: [facility] [place] 05-03-2025 10:13-0400 Heart rate 66 /min Alejandro Jonnyynick APR N - DIRECTOR SECURITY RISK MANAGEMENT Work Phone: [facility] [place] 05-03-2025 10:13-0400 Systolic blood pressure 106 mm[Hg] Alejandro Queen KINDERGARTEN ASSISTANT - DIRECTOR SECURITY RISK MANAGEMENT Work Phone: [facility] 04-17-2025 08:40-0400 Diastolic blood pressure 50 mm[Hg] Rowena Aguilar DO Work Phone: [facility] 04-17-2025 08:40-0400 Heart rate 62 /min Rowena Eliasffey DO Work Phone: [facility] 04-17-2025 08:40-0400 Respiratory rate 17 /min Rowena Aguilar DO Work Phone: [facility] 04-17-2025 08:40-0400 SaO2% (BldA) [Mass fraction] 96 % Rowena Lintony DO Work Phone: [facility] 04-17-2025 08:40-0400 Systolic blood pressure 104 mm[Hg] Rowena Lintony DO Work Phone: [facility] [place] 04-17-2025 05:00-0400 Body mass index (BMI) [Ratio] 31.14 kg/m2 Rowena Lintony DO Work Phone: [facility] 04-17-2025 05:00-0400 Body weight 92.9 kg Rowena Aguilar DO Work Phone: [facility] 04-17-2025 01:47-0400 Body temperature 97.2 [degF] Rowena Lintony DO Work Phone: [facility] [place] 04-16-2025 16:41-0400 Body height 172.7 cm Rowena Lintony DO Work Phone: [facility] 04-13-2025 04:37-0400 SaO2% (BldA) [Mass fraction] 95.1 % Rowena Lintony DO Work Phone: [facility] [place] 04-08-2025 21:01-0400 SaO2% (BldA) [Mass fraction] 97 % Rowena Lintony DO Work Phone: [facility] 04-08-2025 17:02-0400 SaO2% (BldA) [Mass fraction] 96.1 % Rowena Aguilar DO Work Phone: [facility] Encounters Encounter Date Encounter Type Care Provider Facility Start: 07-19-2025 End: 07-19-2025 Emergency department patient visit PCP NONE [facility] Comment on above: Symptomatic anemia ( Primary Dx) Start: 07-19-2025 ambulatory Ravi MENSAH Facili ty:[facility] Start: 07-07-2025 ambulatory Ravi Murray ty:[facility] Start: 07-06-2025 End: 07-07-2025 Telephone encounter Eber Hess MD Work Phone: [facility] Cardiology [employer] Start: 07-05-2025 ambulatory Ravi MENSAH Facili ty:[facility] Start: 06-28-2025 ambulatory Ravi MENSAH Facili ty:[facility] Start: 06-24-2025 End: 06-24-2025 Documentation procedure Yamilka Holloway KINDERGARTEN ASSISTANT - DIRECTOR SECURITY RISK MANAGEMENT Work Phone: [facility] - [place] Start: 06-24-2025 End: 06-25-2025 Telephone encounter Eber Hess MD Work Phone: [facility] [employer] Comment on above: Release of Informati on (BMP, vitals, and medication notes ) Start: 06-24-2025 ambulatory Ravi MNESAH Facili ty:[facility] Start: 06-21-2025 End: 06-22-2025 Emergency department patient visit Sagar Gilliam DO Work Phone: [facility] Comment on above: Anemia due to chroni c kidney disease, unspecified CKD stage (Primary Dx) Start: 06-21-2025 [facility] Facility :[facility] Start: 06-17-2025 End: 06-17-2025 ambulatory [facility] Start: 06-17-2025 End: 06-17-2025 ambulatory [facility] Start: 06-17-2025 End: 06-17-2025 Office outpatient visit 40 minutes Eber Hess MD Work Phone: [facility]iology Jan Comment on above: Chronic systolic hea rt failure (HCC) (Primary Dx) Start: 05-06-2025 End: 05-12-2025 Home visit new pt unstabl/signif new prob 75 min Yamilkapradeep Holloway KINDERGARTEN ASSISTANT - DIRECTOR SECURITY RISK MANAGEMENT Work Phone: [facility] [place] Comment on above: Palliative care enco unter (Primary Dx); Pleural effusion; Acute on chronic heart failure, unspecified heart failure type (HCC); Debility Start: 05-03-2025 End: 05-03-2025 ambulatory ALEJANDRO QUEEN [facility] Start: 05-03-2025 End: 05-03-2025 Office outpatient visit 25 minutes Alejandro Queen KINDERGARTEN ASSISTANT - DIRECTOR SECURITY RISK MANAGEMENT Work Phone: [facility] Cardiology - [place] Comment on above: Chronic systolic hea rt failure (HCC) (Primary Dx); 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 Cardiac Progressive Care Unit PCU 2E Start: 11-07-2020 End: 11-07-2020 Discharged Recurring [facility]-Immunizations Procedures Date Procedure Procedure Detail Performing Clinician Start: 07-19-2025 Blood typing serologic abo Josefina Rose MD Work Phone: Start: 07-19-2025 End: 07-19-2025 TRANSFUSE RED BLOOD CELLS Josefina Rose MD Work Phone: Start: 07-19-2025 Antibody screen ALEJANDRO QUEEN Comment on above: Performed By: #### L [id number] ####Mammal Keeper: UNA NAVARRO ([phone])[facility])[address] Start: 07-19-2025 Blood count complete auto&auto [...] on above: Performed By: #### L [id number] ####Mammal Keeper: UNA NAVARRO ([id number])[facility] ([facility])[address] Start: 06-21-2025 Basic metabolic pane l [...] Phone: Start: 04-15-2025 BEDSIDE SPIROMETRY Lizeth Farmer KINDERGARTEN ASSISTANT - DIRECTOR SECURITY RISK MANAGEMENT Work Phone: Start: 04-15-2025 Blood occult peroxid ase actv qual feces 1-3 spec Albaro Hernández MD Work Phone: Start: 04-15-2025 Radiologic exam ches t single view Yesi Farmer KINDERGARTEN ASSISTANT - DIRECTOR SECURITY RISK MANAGEMENT Work Phone: Start: 04-15-2025 Comprehensive metabo lic panel Precious Lewis MD Work Phone: Start: 04-15-2025 Manual Differential panel - Blood Precious Lewis MD Work Phone: Start: 04-14-2025 OXYGEN THERAPY Precious dawn MD Work Phone: Start: 04-14-2025 Thoracentesis needle /cath pleura w/imaging Yesi Farmer KINDERGARTEN ASSISTANT - DIRECTOR SECURITY RISK MANAGEMENT Work Phone: Start: 04-14-2025 Comprehensive metabo lic panel Precious Lewis MD Work Phone: Start: 04-14-2025 Manual Differential panel - Blood Precious Lewis MD Work Phone: Start: 04-13-2025 OXYGEN THERAPY Precious dawn MD Work Phone: Start: 04-13-2025 Radiologic exam ches t single view Marian Casarez KINDERGARTEN ASSISTANT - DIRECTOR SECURITY RISK MANAGEMENT Work Phone: Start: 04-13-2025 Ecg routine ecg w/le ast 12 lds trcg only w/o i&r Marian Hawkinsmark KINDERGARTEN ASSISTANT - [facility] Work Phone: Start: 04-13-2025 Blood gases any comb ination ph pco2 po2 co2 hco3 Yesi Farmer KINDERGARTEN ASSISTANT [facility] Work Phone: Start: 04-13-2025 Comprehensive metabo lic [...] exam ches t single view Alejandro Queen KINDERGARTEN ASSISTANT [facility] Work Phone: Start: 04-11-2025 OXYGEN THERAPY Precious [...] on above: Performed By: #### L [id number] ####Mammal Keeper: UNA NAVARRO ([id number])[facility] ([facility])[address] Start: 04-05-2025 ABO and Rh group [...] Activity Detail Author Start: 04-05-2030 Lipid panel [facility] Start: 06-21-2026 Creatinine measurement Creatinine Level [facility] Start: 06-21-2026 Potassium measurement Potassium Level [facility] Start: 06-17-2026 Creatinine measurement Creatinine Level [facility] [place] Start: 06-17-2026 Potassium measurement Potassium Level [facility] Start: 04-17-2026 Creatinine measurement [facility] Start: 04-17-2026 Potassium measurement [facility] [place] Start: 04-06-2026 Echocardiography Echocardiogram [facility] Start: 04-06-2026 [facility] Start: 11-03-2025 Depression Monitoring Depression Monitoring [facility] Start: 09-13-2025 End: 09-13-2025 Patient encounter procedure 09/13/2025 10:40 AM EST Office Visit [facility] Cardiology - [place] [address] [place] [phone] Eber Hess MD [address] [place] [address] [facility] - [place] Start: 06-17-2025 End: 06-17-2025 Patient encounter procedure 06/17/2025 10:20 AM EDT Office Visit [facility] [place] [address] [place] [phone] Eber Hess MD [address] [place] [address] [facility] Start: 05-18-2025 End: 05-18-2025 ambulatory [facility] Pulmonary and Sleep Medicine [facility] Start: 05-18-2025 End: 05-18-2025 Patient encounter procedure 05/18/2025 9:15 AM EDT Office Visit [facility] Pulmonary and Sleep Medicine [facility] [address] [place] [address] Nelson Gracia MD [address] [facility] [address] [place] [address] [facility] Pulmonary and Sleep Medicine [facility] Start: 05-10-2025 COVID-19 Vaccine ( season) COVID-19 Vaccine ( season) [facility] Start: 05-10-2025 Influenza vaccination Influenza Vaccine (#1) [facility] Start: 05-10-2025 [facility] Start: 04-22-2025 End: 04-22-2025 ambulatory [facility] - [place] Start: 04-22-2025 End: 04-22-2025 Patient encounter procedure 04/22/2025 10:00 AM EDT Office Visit [facility] - [place] [address] [address] [facility] [address] [place] [phone] Marian Casarez APRN - [place] [address] [address] [facility] - [place] Start: 05-10-2024 COVID-19 Vaccine ( season) COVID-19 Vaccine ( season) [facility] Start: 05-10-2024 [facility] Start: 2011 RSV Immunization for Adults (1 - 1-dose 75+ series) RSV Immunization for Adults (1 - 1-dose 75+ series) [facility] Start: 2011 [facility] Start: 1986 Zoster Vaccines (1 of 2) Zoster Vaccines (1 of 2) [facility] Start: 1986 [facility] Start: 1955 DTaP/Tdap/Td Vaccines (1 - Tdap) DTaP/Tdap/Td Vaccines (1 - Tdap) [facility] Start: 1955 Pneumococcal Vaccine: 50+ Years (1 of 2 - PCV) Pneumococcal Vaccine: 50+ Years (1 of 2 - PCV) [facility] Start: 1955 [facility] Start: 1948 Depression Monitoring Depression Monitoring [facility] Start: 1948 [facility] Start: 1936 Medicare Annual Wellness (AWV) Medicare Annual Wellness (AWV) [facility] Start: 1936 [facility] [facility] Bedside spirometry [facility] Work Phone: End: 04-05-2025 Hemoglobin [Mass/volume] in Blood [facility] Work Phone: End: 04-05-2025 Hemoglobin.gastrointestina l.lower [Presence] in Stool by Immunoassay --1st specimen [facility] Work Phone: Immunizations Immunization Date Immunization Notes Care Provider Fa cility 12-05-2020 Covid (Moderna) [facility] Work Phone: 11-07-2020 Covid (Modern) [facility] Work Phone: 06-30-2020 influenza virus vaccine, unspecified formulation Katie Engle RN [facility] Payers Date Payer Category Payer Self-pay [id number] 2017 [employer] Cross Manuel Vargas Managed Care - [facility] [id number] 2017 Medicare supplementa l policy (as second payer) [id number] 2017 Unknown [id number] 2001 Medicare [id number] 2001 Medicare [id number] Unknown [id number] Unknown [id number] Unknown [id number] Unknown [id number] Unknown [id number] Unknown [id number] Social History Date Type Detail Facility Tobacco smoking stat us NHIS Unknown if ever smoked [facility] Work Phone: Start: 1935 Sex Assigned At Male W [facility] Work Phone: Start: 04-08-2025 End: 05-03-2025 Tobacco smoking status NHIS Never smoked tobacco [facility] Start: 04-08-2025 End: 05-03-2025 History of Social function [facility] Start: 04-08-2025 End: 05-03-2025 [facility] [employer] [facility] Has the [employer], [employer], or water [employer] threatened to shut off services in your home in past 12Mo No [facility] How often to you hav e a drink containing alcohol? Never [facility] How many standard drinks containing alcohol do you have on a typical day? [facility] (I/We) worried landon er (my/our) food would run out before (I/we) got money to buy more. Never true [facility] Start: 1935 Sex assigned at [facility] Start: 04-05-2025 Sex Male (finding) [facility] Start: 05-03-2025 End: 06-15-2025 Tobacco use and exposure Smokeless tobacco non-user [facility] Start: 06-15-[address] [facility] History of tobacco use Current smoker [facility] History of tobacco use Cigarette Smoker [facility] Start: 06-17-2025 Alcoholic beverage intake Ex-drinker (finding) [facility] Goals Date Patient Goal Desired Activity /State Functional Status Date Assessment Result Facility 07-19-2025 Total score [AUDIT-C] 0 07/19/20 10:59 AM Luci Mendez RN [facility] 05-03-2025 Patient Health Quest ionnaire 2 item (PHQ-2) [Reported] [facility] Clinical Notes 04-05-2025 to 07-19-2025 May Jarquin RN - 07/19/2025 7:14 PM Ephraim Jarquin RN - 07/19/2025 7:14 PM Ephraim Jraquin RN - 07/19/2025 6:26 PM Ephraim Jarquin RN - 07/19/2025 5:28 PM ESTDischarge Instructions Note Date & Type Note Facility 07-19-2025 Emergency department Note [facility] arrived to transport pt to home facility . Pt transferred to stretcher without difficulty. Pt A&O, calm, and cooperative, no signs of distress noted. VS stable. Resp even, non labored. [facility] 07-19-2025 Emergency department Note [facility] arrived to transport pt to home facility . Pt transferred to stretcher without difficulty. Pt A&O, calm, and cooperative, no signs of distress noted. VS stable. Resp even, non labored. Report given to [facility]. Marleni Post H&H not needed per Dr. Rose. Ok to dc 30 mins after unit is complete. Meal order placed This RN sat bedside for the first 15 mins of blood transfusion. Pt denied c/o any transfusion reaction symptoms. Pt's vitals rechecked before leaving the room. [facility] ED EMERGENCY DEPARTMENT ENCOUNTER Pt Name: [...] AND HEMATOCRIT, BLOOD PREPARE RBC PRODUCT CODE [id number] Unit Number [id number] Unit ABO A Unit RH NEG Crossmatch interpretation COMP Dispense Status Transfused Blood Expiration Date [id number] Product Blood Type 0600 Unit Volume 300 [...] PM PATIENT REFERRED TO: Ravi Kirk DO [address] [place] [address] [address] [place] [address] In 1 week DISCHARGE MEDICATIONS: New Prescriptions No medications on file @[facility]([id number]:LAST:1)@ (Comment: Please notethis report has been produced [...] MD 07/19/25 1352 documented in this encounter [facility] 07-19-2025 Emergency department Note [facility] 07-19-2025 Emergency department Note Post H&H not needed per Dr. Rose. Ok to dc 30 mins after unit is complete. [facility] 07-19-2025 Emergency department Note Meal order placed [facility] 07-19-2025 Emergency department Note This RN sat bedside for the first 15 mins of blood transfusion. Pt denied c/o any transfusion reaction symptoms. Pt's vitals rechecked before leaving the room. [facility] 07-19-2025 Hospital Discharg e instructions Josefina Rsoe MD - 07/19/2025 1:52 PM EST Continue all current medications. Would recommend that you get a repeat CBC within 5 to 7 days. This can be done by your primary care physician. The following attachments cannot be sent through Care Everywhere.Normocytic Normochromic Anemia Discharge Instructions (Azerbaijani)documented in this encounter [facility] 07-19-2025 Physician Emergency department Note [facility] ED EMERGENCY DEPARTMENT ENCOUNTER Pt Name: [...] AND HEMATOCRIT, BLOOD PREPARE RBC PRODUCT CODE [id number] Unit Number [id number] Unit ABO A Unit RH NEG Crossmatch interpretation COMP Dispense Status Transfused Blood Expiration Date [id number] Product Blood Type 0600 Unit Volume 300 [...] PM PATIENT REFERRED TO: Ravi Kirk DO [address] [place] [id number] In 1 week DISCHARGE MEDICATIONS: New Prescriptions No medications on file @[facility]([id number]:LAST:1)@ (Comment: Please notethis report has been produced [...] Year: No Josefina Rose MD 07/19/25 1352 [facility] 07-07-2025 Telephone encounter Note Darby called back to verify the diuretic instructions; she had the Lasix written down, so I verified that it was actually torsemide. She verbalized understanding and was thankful for the call. [facility] 07-07-2025 Miscellaneous Notes Darby called back to [...] called and spoke to nurse Khushboo from [facility]-she took verbal order for torsemide and notes they are continuing to follow his anemia with hemograms; is occult stool was negative. She was thankful for the call back. Images from the original note were not included. Cr 1.9, K+ 3.7, hemoglobin 7.1 on 07/05/25. BP's mostly 100-110's/50/60's; one SBP outlier of 94, one outlier of 121. HR's 60-70's. Note from nursing: [facility] faxed 07/05/25 BMP, and CBC, and vitals. Records to be scanned to chart. Sharita from [facility] called o report weight gain. 07/03: #189, 07/04: #191, 07/06: #191.4, and today #191.6. He had labs recently and HG is 7.1. She is faxing his recent vitals and labs. We scheduled follow up with 09/13/25. Otherwise he is feeling fine. documented in this encounter [facility] 07-07-2025 Telephone encounter Note Per Dr Hess Ok to take etc 20 mg torsemide if weight gain, leg swelling or sob. Anemia - recommend followup with PCP and GI I called and spoke to nurse Khushboo from [facility]-she took verbal order for torsemide and notes they are continuing to follow his anemia with hemograms; is occult stool was negative. She was thankful for the call back. [facility] 07-06-2025 Telephone encounter Note Images from the original note were not included. Cr 1.9, K+ 3.7, hemoglobin 7.1 on 07/05/25. BP's mostly 100-110's/50/60's; one SBP outlier of 94, one outlier of 121. HR's 60-70's. Note from nursing: [facility] 07-06-2025 Telephone encounter Note [facility] faxed 07/05/25 BMP, and CBC, and vitals. Records to be scanned to chart. [facility] 07-06-2025 Telephone encounter Note Sharita from [facility] called o report weight gain. 07/03: #189, 07/04: #191, 07/06: #191.4, and today #191.6. He had labs recently and HG is 7.1. She is faxing his recent vitals and labs. We scheduled follow up with 09/13/25. Otherwise he is feeling fine. [facility] 06-24-2025 History of Presen t illness Narrative Attempted to meet with pt. He no longer resides here. Facility uncertain where he has moved to. Message left on primary contacts number Bereket to return call to the palliative group at [phone] documented in this encounter [facility] 06-24-2025 Telephone encounter Note Per Dr Hess: Would stop aldactone all together due to Cr 1.8 and low normal BP. Also stop hydralazine and see how bp is I called and spoke to the nurseKylah at [facility] relaying note from Dr Hess. She [...] likely give him an additional torsemide today. [facility] 06-24-[address] Hess: Would stop aldactone all together due to Cr 1.8 and low normal BP. Also stop hydralazine and see how bp is I called and spoke to the nurseKylah at [facility] relaying note from Dr Hess. She [...] was 2.05 on 06/17/25. FYI: Went to [facility] ER on 06/21/25 for blood transfusion as HGB at facility was 6.9 when they checked it 06/21/25. Labs from [facility] Today: 06/24/25 BMP, blood pressure, pulse summary, and medication notes faxed from [facility]. Records scanned to Media. documented in this encounter [facility] 06-24-2025 Telephone encounter Note Images from the [...] was 2.05 on 06/17/25. FYI: Went to [facility] ER on 06/21/25 for blood transfusion as HGB at facility was 6.9 when they checked it 06/21/25. Labs from [facility] Today: [facility] 06-24-2025 Telephone encounter Note 06/24/25 BMP, blood pressure, pulse summary, and medication notes faxed from [facility]. Records scanned to Media. [facility] 06-21-2025 Emergency department Note This RN at bedside for first 15 minutes of blood transfusion. Pt tolerating transfusion. VS updated in system. [facility] 06-21-2025 Emergency department Note This RN at bedside for first 15 minutes of blood transfusion. Pt tolerating transfusion. VS updated in system. Emergency Department Encounter [facility] ED Patient: Mary Charles : 1935 [...] DO 06/21/252 Patient arrives via EMS from [facility] following bloodwork that showed low hemoglobin. No overt signs of bleeding on arrival. Patient A&O4. Patient does endorse previous blood transfusions. documented in this encounter [facility] 06-21-2025 Emergency department Triage note Patient arrives via EMS from [facility] following bloodwork that showed low hemoglobin. No overt signs of bleeding on arrival. Patient A&O4. Patient does endorse previous blood transfusions. [facility] 06-21-2025 Physician Emergency department Note Emergency Department Encounter [facility] ED Patient: Mary Charles : 1935 [...] the emergency department lab work today from [facility] showed hemoglobin of 6.8. Patient [...] [employer] Sagar Gilliam DO 06/21/252211 [facility] Work Phone: 06-17-2025 History of Presen t illness Narrative [facility] Cardiology [facility] CARDIOLOGY - [address] [facility] [address] Dept: [phone] Dept Visit type: Established : 1935 Chief Complaint: Chief Complaint Patient presents with Follow-up 6 Week History of Present Illness: Mary Charles is a 89 y.o. male with HFrEF, Coronary artery disease who is here for followup. Prior events : He presented to [facility] 03/2025 with progressive shortness of breath, [...] tablet, Rfl: 1 documented in this encounter [facility] 05-06-2025 History of Presen t illness Narrative Images from the original note were not included. [facility] Palliative Care Site of Care: [facility] Chief Complaint: Mary Charles is a [...] hospice conversation today Debility Pt now at [facility] Working with PT/OT Palliative encounter Will [...] little over a year ago in the [facility] hospital setting. He reports he had not [...] other systems were reviewed and are negative. 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 [facility] CARDIOLOGY - [address] [place] [id number] Dept: [phone] Dept Visit type: Established : 1935 Reason [...] of EF 2. 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 Wants to establish in [place]. Subjective No prior history as he has not been to a doctor for many years He presented to [facility] 03/2025 with progressive shortness of breath, [...] history on file. documented in this encounter [facility] 05-03-2025 Evaluation + Plan note Associated Problem(s): Abnormal CAT scan CT abdomen with mural thickening involving the cecum and terminal ileum concern for neoplasm versus inflammation. Seen by GI with plan for EGD and colonoscopy once stable. -GI follow-up [facility] 05-03-2025 Miscellaneous Notes Associated Problem(s): Abnormal CAT [...] discharge. Hgb 8.2 per labs 04/26/2025 from [facility]. 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 -Continue Toprol 25 mg p.o. daily [facility] 05-03-2025 Evaluation + Plan note Associated Problem(s): [...] discharge. Hgb 8.2 per labs 04/26/2025 from [facility]. -No aspirin due to anemia - continue to monitor [facility] 05-03-2025 Evaluation + Plan note Associated Problem(s): Acute kidney injury superimposed on chronic kidney disease (HCC) (HCC) Creatinine 1.46 on admission. Peak creatinine 1.78. Most recent creatinine 1.8 per labs 04/26/2025 - Continue to monitor - may have to accept a higher creatinine to keep him out of HF [facility] 05-03-2025 Evaluation + Plan note Associated Problem(s): Pleural effusion Bedside thoracentesis 04/09/2025 with 1 L removed from the left and 600 mL removed from the right. Repeat left thoracentesis 04/14/2025 with 600 mL removed. 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 NO angina. - no ASA 2/2 anemia - continue Toprol 25 mg po daily - continue atorvastatin 20 mg po daily - not a candidate or invasive workup due to anemia, advanced age and frailty [facility] 05-03-2025 Evaluation + Plan note Associated Problem(s): [...] for re-evaluation of EF Electronically signed by Alejandro Queen, KINDERGARTEN ASSISTANT - DIRECTOR SECURITY RISK MANAGEMENT at 05/03/2025 11:05 AM EDT [facility] 04-19-2025 History of Presen t illness Narrative Pt was followed by the Palliative Care Team during hospitalization at [facility]. Provider is recommending continued Palliative follow up in the community. Referral made referral to [facility] Palliative Care SNF team. documented in this encounter [facility] 04-17-2025 Nurse Note Report given to Flor MYERS at [facility]. All belongings sent with patient, including eyewear. HL removed, site WNL. RN contacted CEMENT FITTINGS MAKER Marleny concerning attempt to wean patient to [...] bed very aggressively. 2 RN , 2 hospital nursing assistant were at bedside trying to [...] within normal limits. documented in this encounter [facility] 04-17-2025 Miscellaneous Notes Patient Choice Patient Name: MARY CHARLES Date of : 1935 Share Number: 0 Method of Sharing: electronic Date of Sharin2025-04-08 13:13:49.000 Responding Recipient: @[employer] Ranked Providers Sent Referral Rank: 2 Name: Monika Montoya [facility] Phone: [phone] Address: [address] [place] [address] Rank: 3 Name: [facility] [place]. Phone: [phone] Address: [address] [place] [address] Rank: 1 Name: Jan FUENTES Member Phone: [phone] Address: [address] [place] [address] All Providers Sent Referral Name: Monika LOZOYA Phone: [phone] Address: [place] [address] Name: [employer]re Phone: [phone] Address: [address] [place] [address] Name: Jan Dos Santos CPAN Member Phone: [phone] Address: [address] [id number] Care Management Progress Note Short Medical why still here: Pending placement. Planned Discharge Disposition: Senior Living Facility ([facility] SNF) Barriers/Today we still Wait: Clinical [...] Requested cot transport for 1230 via [facility]. [facility] accepted for 1230. Notified bedside RN of transport time and number to call report. Notified facility of transport time and [facility] Spoke with daughter Anahy Charles at [phone] regarding transportation plan. Confirmed pickup time is 1230. Discussed patient may have a co-pay for ambulance depending on their individual insurance coverage. Advised daughter Anahy to call number on back of insurance card with questions or concerns. Tasked weekend TTC to follow for possible dc over the weekend. manager assisted living to follow and assist as needed. 7000 [...] at that facility if he chooses. -Tasked MANAGER DRUG SAFETY to complete and upload into [employer] 7000. Barriers/Today we still Wait: Clinical stability, [...] still need placement at a facility. -manager assisted living to follow and assist as needed. Care [...] later on Saturday. Planned Discharge Disposition: Senior Living Facility vs hospice Barriers/Today we still Wait: Receiving IV medication, clinical stability, Post-discharge arrangement completion (SNF vs hospice) manager assisted living to follow and assist as needed. Length of Stay (Days): 9 GMLOS: 3.9 Family Communication Number Called: [phone] Name of Designated Family Plant Senior Manager: Anahy Charles Relationship to patient: Daughter Outcome: I spoke with the individual listed above Family Plant Senior Manager Updated on the Following: --provided medical update. [...] family on Saturday. Signed, Bela Agustin APRN, HVAEN, [facility] Palliative Care/Hospice PGR [phone] Care Management Progress Note Short Medical why still here: did send bipap settings to [facility] and requested for them to obtain bipap unit for patient to utilize at their facility. Currently requiring oxygen at 1 liter. Anticipate probable dc tomorrow. Will need 7000 and transport arranged. Planned Discharge Disposition: Senior Living Facility Barriers/Today we still Wait: Administering IV medications, Clinical stability, Facility pre-cert Length of Stay (Days): 8 GMLOS: 3.9 . Referral placed to SNF- [facility] via [facility] per TCC request. Await review and response regarding ability to accept. TCC notified. Care Management Progress Note Short Medical why still here: reviewed chart. Dgt has selected SNF choices virtually - 1. [facility] 2. [facility] 3. [facility]. Tasked MANAGER DRUG SAFETY to create these referrals - will follow. Planned Discharge Disposition: Senior Living Facility Barriers/Today we still Wait: Administering IV medications, Clinical stability, Facility pre-cert Length of Stay (Days): 7 GMLOS: 3.9 Called and spoke with deya Higginbotham of patient, and provided DC planning updates. [facility] willing to accept. Updates sent to facility. ICU Transfer Checklist Transfer Med Reconciliation (resume home meds if able, convert to PO if able) Complete Antibiotics (name, indication, duration, convert to PO if able) None Steroid (indication, duration, convert to PO if able) None Anticipated [place] Medications (ICU initiated) or Dose Changes and Indication No Permanently Discontinued Home Medications and Reason for medication contraindication No García Catheter (please remove if able. Note: place DC order) No Central Line (please remove if able. Note: place DC order) No Transfer Discussed with: Dr. Regan with [facility] If additional questions for ICU team within 24 hours of ICU transfer, page [phone] for clarifications. Will assume care as patient is being transferred out of ICU. D/w Dr Lewis via secure chat Images from the original note were not included. [facility] Palliative Care Transitions of Care [...] care of himself. -Consider medication for mood? -[employer] support requested. -Monitor. Hx CKD III -CrCl [...] NAME: TBD, referrals have been sent to [facility], [facility] and [facility]. Follow up with palliative team on [...] and cardiology following. Planned Discharge Disposition: Senior Living Facility Barriers/Today we still Wait: Clinical stability, Occupational Work Experience Teacher recommendations (comment), Diagnostic workup, Administering IV medications, [...] if SNF is recommended by PT. manager assisted living to follow and assist as needed. Length of Stay (Days): 1 GMLOS: No GMLOS Documented documented in this encounter [facility] 04-17-2025 Note [facility] 04-17-2025 Hospital course Narrative Discharge Summary [...] Your Medications These medications were sent to [facility] [address] [facility] [address] Hours: Saturday to Saturday 10 am to 6 pm atorvastatin 20 MG tablet hydrALAZINE 10 MG tablet metoprolol succinate XL 25 MG 24 hr tablet senna-docusate sodium 8.6-50 MG tablet spironolactone 25 MG tablet Torsemide 40 MG tablet DIET: Adult diet Regular; No Added Salt (3-4 gm) ACTIVITY: No restriction. COMPLEXITY OF FOLLOW UP: [x] Moderate Complexity: follow up within 7-14 calendar days (74974) [] Severe Complexity: follow up within 7 calendar days (71191) FOLLOW UP TESTING, PENDING RESULTS OR REFERRALS AT TRANSITIONAL CARE VISIT: [x] Yes [] No PENDING STUDIES: DISPOSITION: Skilled Facility FACILITY/HOME CARE AGENCY NAME: Follow up with Nelson Garcia MD [address] [facility] [address] Go on 05/18/2025 Pulmonary hospital follow-up at 9:15 AM Marian Casarez APRN - DIRECTOR SECURITY RISK MANAGEMENT [address] [place] [id number] Follow up on 04/22/2025 Cardiology follow-up at 10:00 AM. [facility] - [place] [address] [facility] [id number] Follow up in 1 month(s) on INSTRUCTIONS [...] 04/17/2025, 10:12 AM documented in this encounter [facility] 04-17-2025 History of Presen t illness Narrative [facility] [place] Cardiology /Electrophysiology Progress Note HPI / Interval [...] follow-up 04/22/2025 at 10 AM at the [facility] office with myself, Marian Casarez CNP. [...] (A) 55 - 100 % Final LOURDES Husian CNP Date Of Service 04/17/2025 [1] atorvastatin, 20 mg, Oral, Nightly [Held by provider] hydrALAZINE, 10 mg, Oral, TID metoprolol succinate XL, 25 mg, Oral, Daily pantoprazole, 40 mg, Oral, qAM AC senna-docusate sodium, 2 tablet, Oral, BID spironolactone, 25 mg, Oral, Daily torsemide, 40 mg, Oral, Daily [2] [facility] Respiratory Care Department Progress Note Comment [...] care of himself. -Consider medication for mood? -Beehive Kiln Charcoal Burner support requested. -Monitor. Hx CKD III -CrCl [...] detailed in the note above. Bela Agustin, KINDERGARTEN ASSISTANT - DIRECTOR SECURITY RISK MANAGEMENT Palliative Care Assessments: Goals of care: Continue [...] other systems were reviewed and are negative. [place] Symptom Assessment Score [place] Score Pain Score (if non-verbal, add .FLACC [...] On: Kcal/kg Weight Used for Energy Requirements: [place] Weight for Energy Calculation (kg): 70 kg Total Energy Requirements (kcals/day): 8926-7012 (25-30) Weight Used for Protein Requirements: [place] Weight in Kg Used for Protein Requirements: [...] Body Weight: (none on file to review) [place] Body Weight (lbs) (Calculated): 154 lbs [place] Body Weight (Kg) (Calculated): 70 kg % [place] Body Weight (Calculated): 129.9 % BMI (kg/m2) [...] Continue current diet Kristin Duffy RD Contact: *[phone] or via Secure Chat Images from the original note were not included. OCCUPATIONAL THERAPY [facility] Treatment Note Name/MRN: Mary Charles ([id number]) Date of : 1935 Age: 89 y.o. Room[facility]Bed: [facility] B Visit #: 4 out of 7 Discharge Recommendation: Senior Living Facility Equipment Needed: No Assessment Pt tolerated [...] ANAHY CHARLES Mobile Relation: Daughter Preferred language: Azerbaijani Monument Carver needed? No Albaro Hernández MD Division of Hospitalist Medicine [facility] [1] History reviewed. No pertinent [...] from the original note were not included. [place], Pulmonary Medicine [address] [place] [address] Patient - Mary Charles, Age - 89 y.o. - 1935 Room Number - B2-268/B2-268 B Consulting - Albaro Hernández MD Primary Care Physician - No primary care provider on file. [id number] Date of Admission - 04/05/2025 3:55 PM [...] heart failure, unspecified heart failure type (HCC) [facility] [place] Cardiology /Electrophysiology Progress Note HPI / Interval [...] Daily torsemide, 40 mg, Oral, Daily [2] [facility] Respiratory Care Department Progress Note Comment [...] Respiratory in the care of this patient, [facility] [place] Cardiology /Electrophysiology Progress Note HPI / Interval [...] from the original note were not included. [place], Pulmonary Medicine [address] [place] [address] Patient - Mary Charles, Age - 89 y.o. - 1935 Room Number - B2-268/B2-268 B Consulting - Albaro Hernández MD Primary Care Physician - No primary care provider on file. [id number] Date of Admission - 04/05/2025 3:55 PM [...] ANAHY CHARLES Mobile Relation: Daughter Preferred language: Azerbaijani Monument Carver needed? No Albaro Hernández MD Division of [...] ON 04/16/2025] polyethylene glycol (PEG) 3350 [4] [facility] Respiratory Care Department Progress Note Comment [...] Respiratory in the care of this patient, [facility] [place] Cardiology /Electrophysiology Progress Note HPI / Interval [...] original note were not included. OCCUPATIONAL THERAPY [facility] Name/MRN: Mary Charles ([id number]) Date: 04/14/2025 Attempted to see pt for OT tx. Pt reported being very fatigued after getting cleaned up and working with PT this AM. Unable to encourage participation in OT tx at this time. Marleni Victor OT Images from the original note were not included. PHYSICAL THERAPY [facility] Treatment Note Name/MRN: Mary Charles ([id number]) Date of : 1935 Age: 89 y.o. Room[facility]: [facility] B Visit #: 4 out of 5 Discharge Recommendation: Senior Living Facility Equipment Needed: No Assessment Patient supine [...] ANAHY CHARLES Mobile Relation: Daughter Preferred language: Azerbaijani Monument Carver needed? No Albaro Hernández MD Division of [...] from the original note were not included. [place], Pulmonary Medicine [address] [place] [address] Patient - Mary Charles, Age - 89 y.o. - 1935 Room Number - B2-268/B2-268 B Consulting - Albaro Hernández MD Primary Care Physician - No primary care provider on file. [facility] [id number] Date of Admission - 04/05/2025 3:55 PM [...] at home. I spoke with Breana from [employer]. Likely will need to have bedside spirometry [...] On: Kcal/kg Weight Used for Energy Requirements: [place] Weight for Energy Calculation (kg): 70 kg Total Energy Requirements (kcals/day): 8076-3951 (25-30) Weight Used for Protein Requirements: [place] Weight in Kg Used for Protein Requirements: [...] Body Weight: (none on file to review) [place] Body Weight (lbs) (Calculated): 154 lbs [place] Body Weight (Kg) (Calculated): 70 kg % [place] Body Weight (Calculated): 136.1 % BMI (kg/m2) [...] Oral Nutrition Supplement Kristin Duffy RD Contact: *[phone] or via Secure Chat Images from the original note were not included. OCCUPATIONAL THERAPY [facility] Treatment Note Name/MRN: Mary Charles ([id number]) Date of : 1935 Age: 89 y.o. Room[facility]: [facility] B Visit #: 3 out of 7 Discharge Recommendation: Senior Living Facility Equipment Needed: No Prior Level of [...] Gongora OT at 04/14/2025 9:03 AM EDT [facility] [place] Cardiology /Electrophysiology Progress Note HPI / Interval [...] 100 % Final Marian Casarez, LOURDES - DIRECTOR SECURITY RISK MANAGEMENT Date Of Service 04/13/2025 [1] atorvastatin, 20 [...] ANAHY CHARLES Mobile Relation: Daughter Preferred language: Azerbaijani Monument Carver needed? No Albaro Hernández MD Division of Hospitalist Medicine Acute [facility] [1] History reviewed. No pertinent past [...] from the original note were not included. [place], Pulmonary Medicine [address] [place], [place] [id number] Patient - Mary Charles, Age - 89 [...] original note were not included. OCCUPATIONAL THERAPY [facility] Treatment Note Name/MRN: Mary Charles ([id number]) Date of : 1935 Age: 89 y.o. Room[facility]: [facility] B Visit #: 2 out of 7 visits Discharge Recommendation: Senior Living Facility Equipment Needed: No Prior Level of Function Prior Level of ADL Function: Required Assist (for showering and pt wipes himself down with wash cloth IND) Prior Level of Mobility: Independent; Device: Rollator Prior Level of Transfers: Independent Assessment Pt agreeable to therapy at first attempt ([id number]) but states that he first needs to [...] care of himself. -Consider medication for mood? -Beehive Kiln Charcoal Burner support requested. -Monitor. Hx CKD III -CrCl [...] hospital setting and will send referral to electric organ inspector and repairercorporate safety coordinator for palliative SNF referral. -Questions answered, [...] other systems were reviewed and are negative. [place] Symptom Assessment Score [place] Score Pain Score (if non-verbal, add .FLACC [...] time LOURDES Ordaz CNP Hospitalist Progress Note 04/12/20256997964-8520: Please secure chat me for patient care issues. [phone]: Please secure chat [facility] night Hospitalist for any issues. Subjective: Admit [...] diet Regular; No Added Salt (3-4 gm) @[id number]@ 24HR INTAKE/OUTPUT: Intake/Output Summary (Last 24 hours) [...] Contact: MELVINANAHY Mobile Relation: Daughter Preferred language: Azerbaijani Monument Carver needed? No Westley Martinez MD Division of Hospitalist Medicine Acute care [employer] PAGER: [employer] chat [1] History reviewed. No pertinent past [...] original note were not included. PHYSICAL THERAPY [facility] Treatment Note Name/MRN: Mary Charles ([id number]) Date of : 1935 Age: 89 y.o. Room[facility]: [facility] B Visit #: 3 out of 5 visits Discharge Recommendation: Senior Living Facility Equipment Needed: No Assessment Pt making [...] Cabral, PT at 04/12/2025 10:47 AM EDT [facility] Cardiology /Electrophysiology Progress Note HPI / Interval History: Mary Charles has no prior cardiac history (has not seen a physician for many years) who presented to [facility] with worsening SOB, hypoxia and edema. [...] Benson CNP Date Of Service 04/12/2025 [1] [facility] Respiratory Care Department Progress Note Comment [...] original note were not included. OCCUPATIONAL THERAPY [facility] Treatment Note Name/MRN: Mary Charles ([id number]) Date of : 1935 Age: 89 y.o. Room/Bed: B2-268/B2-268 B Visit #: 1 out of 7 Discharge Recommendation: Senior Living Facility Equipment Needed: No Prior Level of [...] 1:38 PM EDT Hospitalist Progress Note 04/11/2025 [phone]: Please secure chat me for patient care issues. [phone]: Please secure chat [facility] Hospitalist for any issues. Subjective: Admit [...] diet Regular; No Added Salt (3-4 gm) @[id number]@ 24HR INTAKE/OUTPUT: Intake/Output Summary (Last 24 hours) [...] Extended Emergency Contact Information Primary Emergency Contact: AANHY CHARLES Mobile Relation: Daughter Preferred language: Azerbaijani Monument Carver needed? No Westley Martinez MD Division of Hospitalist Medicine [employer] [facility] PAGER: [employer] [1] History reviewed. [...] ON 04/12/2025] torsemide, 40 mg, Oral, Daily [facility] [place] Cardiology /Electrophysiology Progress Note HPI / Interval History: Mary Charles has no prior cardiac history (has not seen a physician for many years) who presented to [facility] with worsening SOB, hypoxia and edema. [...] Benson CNP Date Of Service 04/11/2025 [1] [facility] Respiratory Care Department Progress Note Comment [...] original note were not included. PHYSICAL THERAPY [facility] Treatment Note Name/MRN: Mary Charles ([id number]) Date of : 1935 Age: 89 y.o. Room/Bed: 222-04/222-04 A Visit #: 2 out of 5 Discharge Recommendation: Senior Living Facility Equipment Needed: No Assessment Pt making [...] original note were not included. OCCUPATIONAL THERAPY [facility] Initial Evaluation Name/MRN: Mary Charles ([id number]) Evaluation Date: 04/10/2025 Date of : 1935 Admission Date: 04/05/2025 3:55 PM Age: 89 y.o. Room/Bed: 222-04/222-04 A Discharge Recommendation: Senior Living Facility Equipment Needed: No Assessment IMPRESSION: Pt [...] Needs Assist Receives Help From: Family Active Engineer: No Prior Level of Function Prior Level [...] of Care supervision is transferred to a [facility] Therapy Services Occupational Therapist. Goals and/or treatment [...] [2] History reviewed. No pertinent surgical history. [facility] [place] Cardiology /Electrophysiology Progress Note HPI / Interval History: Mary Charles has no prior cardiac history (has not seen a physician for many years) who presented to [facility] with worsening SOB, hypoxia and edema. [...] remote tobacco abuse who was admitted to [facility] 04/05/25 with shortness of breath and [...] Normal [] Scar/Lesion/Mass Inspection of teeth/lips/gums: Dentition: [x][place] Teeth []Dentures Lips/Gums [x]Intact []Lesion Present Oropharynx exam: Mucosa [x]Cohoes []Moist []Dry Neck: External Appearance: Overall Appearance:[x]Normal [...] ABGs: Recent Labs 04/08/25165304/08/252052 PHART 7.296* 7.332* PFR6JAB 80.1* 75.1* PO2ART 92.0 104.0 CEP8QQJ 38.2* 38.9* [id number] 96.1* 97.0 Lactic Acid: No lab exists [...] can use the urinal, no indication for CHANGE MANAGEMENT CONSULTANT at this time (would be a poor [...] Status: Full Code Disposition: Transfer to [facility] with telemetry Critical care time spent reviewing labs/films, examining patient, collaborating with other physicians but excluding procedures for life threatening organ failure is 35 minutes. Precious Lewis MD Pulmonary & Critical Care Medicine [facility] Pager #[phone] [1] atorvastatin, 20 mg, Oral, Nightly carvedilol, 3.125 mg, Oral, BID WC furosemide, 40 mg, IntraVENous, BID hydrALAZINE, 25 mg, Oral, TID mupirocin, 1 Application, Nasal, BID pantoprazole, 40 mg, Oral, qAM AC polyethylene glycol (PEG) 3350, 17 g, Oral, Daily senna-docusate sodium, 2 tablet, Oral, BID [Held by provider] torsemide, 20 mg, Oral, Daily [2] [facility] [place] Cardiology /Electrophysiology Progress Note HPI / Interval History: Mary Charles has no prior cardiac history (has not seen a physician for many years) who presented to [facility] with worsening SOB, hypoxia and edema. [...] Does appear tired. Family at bedside (brother, [id number], daughter). No significant complaints today. Assessment/Plan HF [...] original note were not included. PHYSICAL THERAPY [facility] Treatment Note Name/MRN: Mary Charles ([id number]) Date of : 1935 Age: 89 y.o. Room/Bed: 222-04/222-04 A Visit #: 1 out of 5 Discharge Recommendation: Senior Living Facility Equipment Needed: No Assessment Pt demos [...] Cabral PT Spiritual Care Note [facility] Palliative Care Patient Name:Mary Charles Chief Complaint: [...] of grief. He spoke about moving from [place] to [place] as a young man. We did some life review. No follow up. Is there spiritual distress? YES Comment: Grief Interventions: spiritual support provided, emotional support provided, empathetic listening, and validated feelings. Care Plan: No care plan. Follow Up: No follow up. Debriefed: with book or script editor team. Carmelita Chairez 04/09/25 Images from the [...] care of himself. -Consider medication for mood? -Beehive Kiln Charcoal Burner support requested. -Monitor. Hx CKD III -CrCl [...] other systems were reviewed and are negative. [place] Symptom Assessment Score [place] Score Pain Score (if non-verbal, add .FLACC [...] original note were not included. OCCUPATIONAL THERAPY [facility] Name/MRN: Mary Charles ([id number]) Date: 04/09/2025 OT order received, chart review [...] remote tobacco abuse who was admitted to [facility] 04/05/25 with shortness of breath and [...] Normal [] Scar/Lesion/Mass Inspection of teeth/lips/gums: Dentition: [x][place] Teeth []Dentures Lips/Gums [x]Intact []Lesion Present Oropharynx exam: Mucosa [x]Cohoes []Moist []Dry Neck: External Appearance: Overall Appearance:[x]Normal [...] ABGs: Recent Labs 04/08/25165304/08/252052 PHART 7.296* 7.332* PII1QOS 80.1* 75.1* PO2ART 92.0 104.0 YEZ5PNT 38.2* 38.9* V3DFIMXR 96.1* 97.0 Lactic Acid: No lab exists [...] urology evaluation, strict I/O's, no indication for CHANGE MANAGEMENT CONSULTANT at this time (would be a poor [...] Lewis MD Pulmonary & Critical Care Medicine [facility] Pager #[phone] [1] atorvastatin, 20 mg, Oral, Nightly carvedilol, [...] critical care time excluding procedures D/w Yamilka, CHANGE MANAGEMENT CONSULTANT, Rosangela, RN and family at bedside. Images from the original note were not included. OCCUPATIONAL THERAPY [facility] Name/MRN: Mary Charles ([id number]) Date: 04/08/2025 Therapy eval and treat orders [...] if needed. [facility] Note 04/08/2025 [phone]: Please secure chat [place] for patient care issues. [phone]: Please secure chat [facility] Hospitalist for any issues. Subjective: Admit [...] dose of lorazepam.... Adult diet Clear liquid @[id number]@ 24HR INTAKE/OUTPUT: Intake/Output Summary (Last 24 hours) [...] ANAHY CHARLES Mobile Relation: Daughter Preferred language: Azerbaijani Monument Carver needed? No Westley Martinez MD Division of Hospitalist Medicine Acute care solutions PAGER: [employer] chat [1] History reviewed. No pertinent past medical history. [2] [3] atorvastatin, 20 mg, Oral, Nightly carvedilol, 3.125 mg, Oral, BID WC [Held by provider] furosemide, 40 mg, IntraVENous, BID hydrALAZINE, 25 mg, Oral, TID iron sucrose, 200 mg, IntraVENous, q24h pantoprazole, 40 mg, Oral, qAM AC [facility] [place] Cardiology /Electrophysiology Progress Note HPI / Interval History: Mary Charles has no prior cardiac history (has not seen a physician for many years) who presented to [facility] with worsening SOB, hypoxia and edema. [...] 3. Dysphagia - resolved Spiritual Care Note [facility] Palliative Care Patient Name:Mary Charles Chief Complaint: Chief Complaint Patient presents with Leg Swelling Shortness of Breath Pt arrived to triage for shortness of breath and swelling legs. Pt endorses increased work of breath, weakness, confusion and no appetite. Reason for visit: Beehive Kiln Charcoal Burner Consult Services Provided To:patient and family Background and visit note: Patient was book or script editor consult. Introduced myself and pastoral care to [...] and when patient is able. Debriefed: with book or script editor team. Carmelita Chairez 04/07/25 Images from the original note were not included. PHYSICAL THERAPY [facility] Initial Evaluation Name/MRN: Mary Charles ([id number]) Evaluation Date: 04/07/2025 Date of : 1935 Admission Date: 04/05/2025 3:55 PM Age: 89 y.o. Room[facility]Bed: [facility] A Discharge Recommendation: Senior Living Facility Equipment Needed: No Assessment IMPRESSION: Pt [...] Needs Assist Receives Help From: Family Active Engineer: No Prior Level of Function Prior Level [...] of Care supervision is transferred to a [facility] Therapy Services Physical Therapist. Goals and/or treatment plan was established in collaboration with patient/family/other representatives. [1] History reviewed. No pertinent past medical history. [2] History reviewed. No pertinent surgical history. Cosigned by Lucrecia Cabral PT at 04/07/2025 4:00 PM EDT Hospitalist Progress Note 04/07/20256990141-3423: Please secure chat me for patient care issues. [phone]: Please secure chat [facility] night Hospitalist for any issues. Subjective: Admit Date: 04/05/2025 PCP: No primary care provider on file. Room#: -254[facility] A Brief History: Patient is a 89-year-old [...] diet Regular; No Added Salt (3-4 gm) @[id number]@ 24HR INTAKE/OUTPUT: Intake/Output Summary (Last 24 hours) [...] ANAHY CHARLES Mobile Relation: Daughter Preferred language: Azerbaijani Monument Carver needed? No Westley Martniez MD Division of Hospitalist Medicine Acute care solutions PAGER: [employer] chat [1] History reviewed. No pertinent past medical history. [2] [3] atorvastatin, 20 mg, Oral, Nightly carvedilol, 3.125 mg, Oral, BID WC furosemide, 40 mg, IntraVENous, BID hydrALAZINE, 25 mg, Oral, TID iron sucrose, 200 mg, IntraVENous, q24h pantoprazole, 40 mg, Oral, qAM AC [facility] [place] Cardiology /Electrophysiology Progress Note HPI / Interval History: Mary Charles has no prior cardiac history (has not seen a physician for many years) who presented to [facility] with worsening SOB, hypoxia and edema. [...] assess Fluid Accumulation: Moderate to Severe Extremities Exercise Physiology Professor Strength: Not Performed Nutrition Assessment: 89 y.o. [...] anemia and frailty. Conservative, medical management. nursing executive in room. Pt sleeping /snoring -name called numerous times pt did not wake -left undisturbed at this time. Estimated Daily Nutrient Needs: Energy Requirements Based On: Kcal/kg Weight Used for Energy Requirements: [place] Weight for Energy Calculation (kg): 70 kg Total Energy Requirements (kcals/day): 6176-3322 (25-30) Weight Used for Protein Requirements: [place] Weight in Kg Used for Protein Requirements: [...] lb) Usual Body Weight: (unable to obtain) [place] Body Weight (lbs) (Calculated): 154 lbs [place] Body Weight (Kg) (Calculated): 70 kg % [place] Body Weight (Calculated): 129.9 % BMI (kg/m2) [...] soon to determine Kristin Duffy RD Contact: *[phone] or via Secure Chat [1] atorvastatin, 20 mg, Oral, Nightly carvedilol, 3.125 mg, Oral, BID WC furosemide, 40 mg, IntraVENous, BID hydrALAZINE, 25 mg, Oral, TID iron sucrose, 200 mg, IntraVENous, q24h pantoprazole, 40 mg, Oral, qAM AC [2] Hospitalist Progress Note 04/06/20256990834-6759: Please secure chat me for patient care issues. [phone]: Please secure chat [facility] Hospitalist for any issues. Subjective: Admit [...] ferritin, IV Venofer added Adult diet Regular @DEIV2CLJDVA@ 24HR INTAKE/OUTPUT: Intake/Output Summary (Last 24 hours) [...] ANAHY CHARLES Mobile Relation: Daughter Preferred language: Azerbaijani Monument Carver needed? No Westley Martinez MD Division of Hospitalist Medicine [employer] care [employer] PAGER: Epic chat [1] History reviewed. No pertinent past medical history. [2] [3] atorvastatin, 20 mg, Oral, Nightly carvedilol, 3.125 mg, Oral, BID WC furosemide, 40 mg, IntraVENous, BID hydrALAZINE, 25 mg, Oral, TID iron sucrose, 200 mg, IntraVENous, q24h pantoprazole, 40 mg, Oral, qAM AC documented in this encounter [facility] 04-14-2025 Note IR US Thoracentesis 650 ml [...] days, worsening pleural effusion. 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 Consult placed. Will see tomorrow s/p thoracentesis. Signed, Bela Agustin APRN, CNP, [facility] P[facility] [phone] Cosigned by Diana Marsh MD at 04/14/2025 1:38 PM EDT Images from the original note were not included. [place], Pulmonary Medicine [address] [place], [place] [id number] [id number] 1935 Date of Admission - 04/05/2025 3:55 PM Date of evaluation - 04/12/2025 Room - B2268/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 with shortness of breath and hypoxia. [...] On: Kcal/kg Weight Used for Energy Requirements: [place] Weight for Energy Calculation (kg): 70 kg Total Energy Requirements (kcals/day): 8135-9950 (25-30) Weight Used for Protein Requirements: [place] Weight in Kg Used for Protein Requirements: [...] Body Weight: (none on file to review) [place] Body Weight (lbs) (Calculated): 154 lbs [place] Body Weight (Kg) (Calculated): 70 kg % [place] Body Weight (Calculated): 136.1 % BMI (kg/m2) [...] to determine Darleen Stubbs RDN, LDN, Contact: *[phone] Associated Order(s): INPATIENT CONSULT TO CRITICAL CARE - MEDICAL TEAM Internal Medicine: MICU Initial Consult Name: Mary Charles : 1935(89 y.o.) Date: 04/08/25 Attending: Precious Lewis MD Subjective: Chief Complaint: shortness of breath HPI: Patient is a pleasant 89 year-old male with a history of chronic HFrEF and prior remote tobacco abuse who was admitted to [facility] 04/05/25 with shortness of breath and [...] Normal [] Scar/Lesion/Mass Inspection of teeth/lips/gums Dentition: [x][place] Teeth []Dentures Lips/Gums: [x]Intact []Lesion Present Mucosa: [x]Cohoes []Moist []Dry Neck: External Appearance Overall Appearance: [...] ABGs: Recent Labs 04/08/25 1654 PHART 7.296* BQM7GZX 80.1* PO2ART 92.0 HCP3DIZ 38.2* [id number] Nasal Cannula (LPM) Lactic Acid: No results [...] Place garcía, strict I/O's, no indication for CHANGE MANAGEMENT CONSULTANT at this time (would be a poor [...] care of himself. -Consider medication for mood? -Beehive Kiln Charcoal Burner support requested. -Monitor. Hx CKD III -CrCl [...] Living status: alone Work history: status: No Jewish: No mormon on file ROS: See palliative care ROS/ESAS below; All other systems were reviewed and are negative. [place] Symptom Assessment Score [place] Score Pain Score (if non-verbal, add .FLACC [...] lives close by Retired from working at [employer] for 43 years No tobacco use Denies [...] Allergies Associated Order(s): IP CONSULT TO CARDIOLOGY [facility] [place] [facility] Consult Note Reason for Consult/Chief Complaint: [...] daily Consider palliative approach Cari Scherer MD, [facility], [facility] DATE of SERVICE: 04/06/2025 [1] History reviewed. No pertinent past medical history. [2] History reviewed. No pertinent surgical history. [3] No family history on file. [4] [5] furosemide, 40 mg, IntraVENous, BID iron sucrose, 200 mg, IntraVENous, q24h pantoprazole, 40 mg, Oral, qAM AC documented in this encounter [facility] 04-13-2025 Hospital Discharg e instructions LOURDES Cervantes CNP - 04/13/2025 12:17 PM EDT Please call [facility] at [phone] to arrange for home NIV once stable [...] ANAHY CHARLES Mobile Relation: Daughter Preferred language: Azerbaijani Monument Carver needed? No Past Surgical History: History reviewed. 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 Minimal assistance Med Delivery yes Wound Care [...] Discharging to Facility/ Agency Name: [facility] Address:[address] [place] [address] Phone:[phone] Dialysis Facility (if applicable) Name: Address: Dialysis Schedule: Phone: Fax: Drain Tile Machine Operator/Historical Guide signature: ICIAN SECTION Name: Mary Charles Prognosis: [...] to a nursing facility directly from an [facility] or a unit of a hospital that is not operated by or licensed by [facility] under section 5119.14 or 5160-3-15.1 5 The [...] H&P PHYSICIAN SIGNATURE: documented in this encounter [facility] 04-09-2025 Note [facility] 04-09-2025 Procedure note Associated Ord er(s): [...] this procedure note documented in this encounter [facility] 04-09-2025 Note [facility] 04-05-2025 Note [facility] 04-05-2025 History and physical note Attending [...] No Known Allergies documented in this encounter [facility] Evaluation note Diagnosis Acute congestive heart failure, unspecified heart failure type (HCC)- Primary Acute congestive heart failure, unspecified heart failure type (HCC) Anemia, unspecified type Shortness of breath Hypoxia Hypoxemia CHF (congestive heart failure), NYHA class I, acute on chronic, combined (HCC) documented in this encounter [facility]* Diagnosis Acute congestive heart failure, unspecified heart failure type (HCC)- Primary documented in this encounter [facility]* Diagnosis Chronic systolic heart failure (HCC)- Primary Chronic systolic heart failure 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 Pleural effusion Unspecified pleural effusion Acute kidney injury superimposed on chronic kidney disease (HCC) (HCC) 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 chronic kidney disease (HCC) PAC (premature atrial contraction) Supraventricular premature beats Abnormal CAT scan Other nonspecific (abnormal) findings on radiological and other examinations of body structure [facility] Diagnosis Chronic systolic heart failure (HCC)- Primary Chronic systolic heart failure 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 Pleural effusion [...] Debility Unspecified debility documented in this encounter [facility]* Diagnosis Chronic systolic heart failure (HCC)- Primary Chronic systolic heart failure 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 Pleural effusion [...] this encounter [facility]* Diagnosis Chronic systolic heart failure (HCC)- Primary Chronic systolic heart failure 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 Pleural effusion Unspecified pleural effusion Acute kidney injury superimposed on chronic kidney disease 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 chronic kidney disease (CMS/HCC) PAC (premature atrial contraction) Supraventricular premature beats Abnormal CAT scan Other nonspecific (abnormal) findings on radiological and other examinations of body structure Anemia due to chronic kidney disease, unspecified CKD stage- Primary documented in this encounter [facility]* Diagnosis Chronic systolic heart failure (HCC)- Primary Chronic systolic heart failure 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 Albaro Hernández MD [address] [place] [address] Phone: tel: fax: [facility] Cardiac Progressive Care Unit PCU [address] [place] [address] Phone: tel: Referral ID Status Reason Start [...] sedation for opioid reversal - MUST notify regional medical director provider immediately after first dose, may give [...] Care Teams (unrecognized sec tion and content) Behavioral Health Consultant Relationship Specialty Start Date End Date Aliya Tadeo RN Storage Brine Worker Manager 04/09/25 Behavioral Health Consultant Relationship Specialty Start Date End Date Aliya Tadeo RN Storage Brine Worker Manager 04/09/25 Behavioral Health Consultant Relationship Specialty Start Date End Date Aliya Tadeo RN Registered Nurse Storage Brine Worker Manager 04/09/25 Behavioral Health Consultant Relationship Specialty Start Date End Date Aliya Tadeo RN Registered Nurse Storage Brine Worker Manager 04/09/25 Behavioral Health Consultant Relationship Specialty Start Date End Date Aliya Tadeo RN Registered Nurse Storage Brine Worker Manager 04/09/25 Behavioral Health Consultant Relationship Specialty Start Date End Date Aliya Tadeo RN Registered Nurse Storage Brine Worker Manager 04/09/25 Behavioral Health Consultant Relationship Specialty Start Date End Date Aliya Tadeo RN Registered Nurse Storage Brine Worker Manager 04/09/25 Behavioral Health Consultant Relationship Specialty Start Date End Date Ravi Kirk, [address] [place] [id number] PCP - General Internal Medicine 07/19/25 (unrecognized sect ion and content) No Status Records FoundNo Status Records Found INFORMATION SOURCE (unrecogn ized section and content) DATE CREATED AUTHOR 07/19/2025 [facility] DATE CREATED AUTHOR 'S KIYA ATION 07/20/2025 [facility] tem [facility] FOR RECORDS PERTAINING TO PATIENTS WHO [...] BE BASED ON THE PRIMARY CLINICAL RECORDS. [facility]. provides no warranty or guarantee of the accuracy or completeness of information in this document.
[2025-09-01 08:35] LABS: Hematocrit 25.0 % (40-54); Hemoglobin 7.8 g/dL (13.0-16.5)
== END ==
LOC: OLS.ACH2 04:00
PROVIDERS: PCP Internal Medicine; Referring Provider Internal Medicine; Visit Provider Internal Medicine
DX: N18.9 Chronic kidney disease, unspecified (principal); D63.1 Anemia in chronic kidney disease
CPT/HCPCS: 36415; 85014; 85018

== ENCOUNTER → 2025-09-08 05:00 | Outpatient (REF) | payer MEDICARE, BC, SELFPAY ==
--- OUTSIDE RECORDS SUMMARY | 2025-09-08 04:08 | XMS RPT_ITS | CCD ---
Author Organization [facility] Care Team Providers Care Flat Bed Knitter Name Role Phone Aliya Tadeo RN Unavailable Unavailable Deperro OLS, Ravi Attending Unavailable Ghourbrial, Negro Primary Care Unavailable Ghourbrial, Negro Primary [facility] Unavailable Deperro OLS, Ravi Attending Unavailable Deperro OLS, Ravi Attending Unavailable Ghourbrial, Negro Primary Care Unavailable Deperro OLS, Ravi Attending Unavailable Ghourbrial, [facility] Primary Care Unavailable Deperro OLS, Ravi Attending Unavailable Ghourbrial, [facility] Primary Care Unavailable Deperro OLS, Ravi [...] / sennosides, assisted 8.6 mg oral tablet (15 sources) Start: [...] Start: 04-05-2025 End: 04-06-2025 polyethylene glycol 3350 90290 mg powder for oral solution (4 sources) [...] Coronary arteriosclerosis; 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 [place], [place] [id number] [place] [address] Basic Metabolic Profile (BMP )on 07-19-2025 BUN/CRE 17.2 RATIO Normal 10-20 [facility] Comment on above: Order Comment: 542.1 Performed By: #### L 500.2500, L100.0500 #### [facility] [address] [place], [address] Calcium [Mass/Vol] 8.6 mg/dL Normal 7.6-11.0 [facility] Comment on above: Order Comment: 542.1 Performed By: #### L 500.2500, L100.0500 #### [facility] [address] [place], [address] Chloride [Moles/Vol] 99 mmol/L Normal 98-108 [facility] Comment on above: Order Comment: 542.1 Performed By: #### L 500.2500, L100.0500 #### [facility] [address] [place], [address] CO2 [Moles/Vol] 28.6 mmol/L Normal 21.0-32.0 [facility] Comment on above: Order Comment: 542.1 Performed By: #### L 500.2500, L100.0500 #### [facility] [address] [place], [address] Creatinine [Mass/Vol] 1.77 mg/dL High 0.70-1.20 [facility] Comment on above: Order Comment: 542.1 Performed By: #### L 500.2500, L100.0500 #### [facility] [address] [place], [address] GAP 9 Normal 5-15 [facility] Comment on above: Order Comment: 542.1 Performed By: #### L 500.2500, L100.0500 #### [facility] [address] [place], [address] GFR/1.73 sq M.predicted among non-blacks MDRD (S/P/Bld) [Vol rate/Area] 36 mL/min/{1.73_m2} Low >60 [facility] Comment on above: Order Comment: 542.1 Result Comment: mL/m in/1.73m2 CKD-EPI Creatinine Equation (2020) Performed By: #### L 500.2500, L100.0500 #### [facility] [address] [place], [address] Glucose [Mass/Vol] 93 mg/dL Normal 70-99 [facility] Comment on above: Order Comment: 542.1 Performed By: #### L 500.2500, L100.0500 #### [facility] [address] [place], [address] Potassium [Moles/Vol] 3.7 mmol/L Normal 3.3-5.1 [facility] Comment on above: Order Comment: 542.1 Performed By: #### L 500.2500, L100.0500 #### [facility] [address] [place], [address] Sodium [Moles/Vol] 137 mmol/L Normal 133-145 [facility] Comment on above: Order Comment: 542.1 Performed By: #### L 500.2500, L100.0500 #### [facility] [address] [place], [address] Urea nitrogen [Mass/Vol] 30 mg/dL High 4-19 [facility] Comment on above: Order Comment: 542.1 Performed By: #### L 500.2500, L100.0500 #### [facility] [address] [place], [address] Blood type and Crossmatch keagan victor (Bld)on 07-19-2025 ABO group Froilan (Bld) A [facility] Blood group antibody screen GEL Ql Negative [facility] D Ag Ql (RBC) Negative [facility] CBC W Auto Differential pane l (Bld)Ordered By: Haroldo Alvarez on 07-19-2025 Erythrocyte distribution width (RBC) [Ratio] 14.0 % 11.5 - 15.0 % [facility] Hematocrit (Bld) [Volume fraction] 24.6 % Low 40.0 - 52.0 % [facility] Hemoglobin (Bld) [Mass/Vol] 7.8 g/dL Low 13.0 - 18.0 g/dL [facility] Interpretation and review of laboratory results Abnormal [facility] MCH (RBC) [Entitic mass] 29.2 pg 26. 0 - 34.0 pg [facility] MCHC (RBC) [Mass/Vol] 31.7 % 30.5 - 36.0 % [facility] MCV (RBC) [Entitic vol] 92.1 fL 77.0 - 99.0 fL [facility] Platelet mean volume (Bld) [Entitic vol] 8.3 fL Low 9.0 - 12.7 fL [facility] Platelets (Bld) [#/Vol] 581 10*3/uL High 140 - 440 10*3/uL [facility] RBC (Bld) [#/Vol] 2.67 10*6/uL Low 4.40 - 5.9 0 10*6/uL [facility] WBC (Bld) [#/Vol] 15.6 10*3/uL High 3.6 - 10.7 10*3/uL [facility] CBC WITH AUTO DIFFERENTIALon 07-19-2025 Erythrocyte distribution width (RBC) [Ratio] 14.0 % Normal 11.5-15.0 [facility] Comment on above: Performed By: #### L [id number], [id number] ####Auger Operator: UNA ARCE ([phone])[facility] ([address] Hematocrit (Bld) [Volume fraction] 24.6 % Low 40.0-52.0 [facility] Comment on above: Performed By: #### L [id number], [id number] ####Auger Operator: UNA ARCE ([id number])[facility] ([facility])[address] Hemoglobin (Bld) [Mass/Vol] 7.8 g/dL Low 13.0-18.0 [facility] Comment on above: Performed By: #### L [id number], [id number] ####Auger Operator: UNA YAZMIN ([phone])[facility] CENTERAngel [facility] ([facility])[address] MCH (RBC) [Entitic mass] 29.2 pg Normal 26.0-34.0 [facility] Comment on above: Performed By: #### L KU2828, [id number] ####Auger Operator: UNA BERMUDEZPEDRO ([phone])[facility]ENTER[facility] ([facility])[address] MCHC 31.7 % Normal 30.5-36.0 [facility] Comment on above: Performed By: #### L [id number], [id number] ####Auger Operator: UNA ARCE ([id number])[facility]ENTER[facility] ([facility])[address] MCV (RBC) [Entitic vol] 92.1 fL Normal 77.0-99.0 [facility] Comment on above: Performed By: #### L LS8887, [id number] ####Auger Operator: UNA ARCE ([id number])[facility] CENTERAngel [place] ([facility])[address] Platelet mean volume (Bld) [Entitic vol] 8.3 fL Low 9.0-12.7 [facility] Comment on above: Performed By: #### L [id number], [id number] ####Auger Operator: UNA ARCE ([id number])[facility] ([facility])[address] Platelets (Bld) [#/Vol] 581 10*3/uL High 140-440 [facility] Comment on above: Performed By: #### L [id number], [id number] ####Auger Operator: UNAANJEL ARCE ([id number])[facility]ENTER[facility] ([facility])[address] [place] [address] RBC (Bld) [#/Vol] 2.67 10*6/uL Low 4.40-5.90 [facility] Comment on above: Performed By: #### L [id number], [id number] ####Auger Operator: UNAANJEL ARCE ([phone])[facility]ENTERAngel [place] ([facility])[address] [place] [address] WBC (Bld) [#/Vol] 15.6 10*3/uL High 3.6-10.7 [facility] Comment on above: Performed By: #### L AF1869, [id number] ####Auger Operator: UNAANJEL ARCE ([phone])[facility] ([facility])[address] [place] [address] CBC-Complete Blood Cnt No [facility] 07-19-2025 Erythrocyte distribution width (RBC) [Ratio] 14.1 % Normal 11.6-14.6 [facility] Comment on above: Order Comment: 542.1 Performed By: #### L 500.2500, L100.0500 #### [facility] [address] [place], [address] Hematocrit (Bld) [Volume fraction] 21.2 % Low 40-54 [facility] Comment on above: Order Comment: 542.1 Performed By: #### L 500.2500, L100.0500 #### [facility] [address] [place], [address] Hemoglobin (Bld) [Mass/Vol] 6.6 g/dL Low 13.0-16.5 [facility] Comment on above: Order Comment: 542.1 Performed By: #### L 500.2500, L100.0500 #### [facility] [address] [place], [address] MCH (RBC) [Entitic mass] 28.9 pg Normal 27.0-32.0 [facility] Comment on above: Order Comment: 542.1 Performed By: #### L 500.2500, L100.0500 #### [facility] [address] [place], [address] MCHC (RBC) [Mass/Vol] 31.1 g/dL Low 32-36 [facility] Comment on above: Order Comment: 542.1 Performed By: #### L 500.2500, L100.0500 #### [facility] [address] [place], [address] MCV (RBC) [Entitic vol] 93.0 fL Normal 80-94 [facility] Comment on above: Order Comment: 542.1 Performed By: #### L 500.2500, L100.0500 #### [facility] [address] [place], [address] Platelet mean volume (Bld) [Entitic vol] 8.5 fL Normal 6.2-12.0 [facility] Comment on above: Order Comment: 542.1 Performed By: #### L 500.2500, L100.0500 #### [facility] [address] [place], [address] Platelets (Bld) [#/Vol] 516 10*3/uL High 150-450 [facility] Comment on above: Order Comment: 542.1 Performed By: #### L 500.2500, L100.0500 #### [facility] [address] [place], [address] RBC (Bld) [#/Vol] 2.28 10*6/uL Low 4.6-6.2 [facility] Comment on above: Order Comment: 542.1 Performed By: #### L 500.2500, L100.0500 #### [facility] [address] [place], [address] RDW SD 47.1 fl High 35.1-43.9 [facility] Comment on above: Order Comment: 542.1 Performed By: #### L 500.2500, L100.0500 #### [facility] [address] [place], [address] WBC (Bld) [#/Vol] 12.9 10*3/uL High 4.4-11.0 [facility] Comment on above: Order Comment: 542.1 Performed By: #### L 500.2500, L100.0500 #### [facility] [address] [place], [address] ED Nursing Noteon 07-19-2025 ED Nursing Note [facility] arrived to transport pt to home facility . Pt transferred to stretcher without difficulty. Pt A&O, calm, and cooperative, no signs of distress noted. VS stable. Resp even, non labored. Normal [facility] ED Nursing Note Report given to [facility]. Marleni Normal [facility] ED Nursing Note Post H&H not needed per Dr. Rose. Ok to dc 30 mins after unit is complete. Normal [facility] ED Nursing Note Meal order placed Normal [facility] ED Nursing Note This RN sat bedside for the first 15 mins of blood transfusion. Pt denied c/o any transfusion reaction symptoms. Pt's vitals rechecked before leaving the room. Normal [facility] ED Provider Noteon ED Provider Note Normal [facility] MANUAL DIFFERENTIALon 2024 BASOPHILS (10*3/UL) IN BLOOD BY MANUAL COUNT 0.3 10*3/uL High 0.0-0.2 [facility] Comment on above: Performed By: #### L [id number], [id number] ####Auger Operator: UNA ARCE ([id number])[facility] ([facility])[address] [place] [address] BASOPHILS/100 LEUKOCYTES IN BLOOD BY MANUAL COUNT 2 % Normal 0-2 [facility] Comment on above: Performed By: #### L [id number], [id number] ####Auger Operator: UNA ARCE ([phone])[facility] [place] ([facility])[address] CELLS COUNTED TOTAL (#) IN BLOOD 100 Normal [facility] Comment on above: Performed By: #### L TA9829, [id number] ####Auger Operator: UNA ARCE ([id number])[facility] [place] ([facility])[address] DIFFERENTIAL METHOD Manual differential performed Normal [facility] Comment on above: Performed By: #### L [id number], [id number] ####Auger Operator: UNA ARCE ([id number])[facility] ([facility])[address] EOSINOPHILS (10*3/UL) IN BLOOD BY MANUAL COUNT 0.3 10*3/uL Normal 0.0-0.5 [facility] Comment on above: Performed By: #### L [id number], [id number] ####Auger Operator: UNA ARCE ([id number])[facility] [place] ([facility])[address] [place] [address] [place] EOSINOPHILS/100 LEUKOCYTES IN BLOOD BY MANUAL COUNT 2 % Normal 0-6 [facility] Comment on above: Performed By: #### L [id number], PWK9577 ####Auger Operator: UNA ARCE ([id number])[facility] [place] ([facility])[address] [place] [address] [place] HYPOCHROMIA (PRESENCE) IN BLOOD BY LIGHT MICROSCOPY Slight Abnormal (none) [facility] Comment on above: Performed By: #### L JG2859, [id number] ####Auger Operator: UNA ARCE ([phone])[facility] [place] ([facility])[address] LEUKOCYTE MORPHOLOGY FINDING IN BLOOD Normal Normal [facility] Comment on above: Performed By: #### L GP1441, [id number] ####Auger Operator: UNAANJEL ARCE ([phone])[facility] [place] ([facility])[address] [place] [address] [place] LYMPHOCYTES (10*3/UL) IN BLOOD BY MANUAL COUNT 3.3 10*3/uL Normal 1.0-4.3 [facility] Comment on above: Performed By: #### L WW4617, [id number] ####Auger Operator: UNAANJEL ARCE ([phone])[facility] [place] ([facility])[address] [place] [address] [place] LYMPHOCYTES/100 LEUKOCYTES IN BLOOD BY MANUAL COUNT 21 % Normal 15-45 [facility] Comment on above: Performed By: #### L XU9454, HBY5554 ####Auger Operator: UNAANJEL ARCE ([id number])[facility] [place] ([facility])[address] [place] [address] [place] MONOCYTES (10*3/UL) IN BLOOD BY MANUAL COUNT 1.4 10*3/uL High 0.0-0.9 [facility] Comment on above: Performed By: #### L SL5315, [id number] ####Auger Operator: UNA BERMUDEZPEDRO ([phone])[facility] [place] ([facility])[address] [place] [address] [place] MONOCYTES/100 LEUKOCYTES IN BLOOD BY MANUAL COUNT 9 % Normal 5-13 [facility] Comment on above: Performed By: #### L [id number], PFA4944 ####Auger Operator: UNA BERMUDEZPEDRO ([phone])[facility] [place] ([facility])[address] [place] [address] [place] OVALOCYTES PRESENCE IN BLOOD BY LIGHT MICROSCOPY Slight Abnormal (none) [facility] Comment on above: Performed By: #### L [id number], [id number] ####Auger Operator: UNA STAUFFERMELANIE ([id number])[facility] [place] ([facility])[address] [place] [address] [place] PLATELET MORPHOLOGY IN BLOOD Normal Normal [facility] Comment on above: Performed By: #### L UL1731, RVC0877 ####Auger Operator: UNAANJEL ARCE ([phone])[facility] ([facility])[address] POLYCHROMASIA IN BLOOD BY LIGHT MICROSCOPY Slight Abnormal (none) [facility] Comment on above: Performed By: #### L HX0361, [id number] ####Auger Operator: UNA BERMUDEZPEDRO ([phone])[facility] ([facility])[address] SEGEMENTED NEUTROPHILS/100 LEUKOCYTES BY MANUAL COUNT 66 % Normal 38-82 [facility] Comment on above: Performed By: #### L KU4052, [id number] ####Auger Operator: UNA YAZMIN ([phone])[facility] ([facility])[address] [place] [address] SEGMENTED NEUTROPHILS (10*3/UL)IN BLOOD BY MANUAL COUNT 10.3 10*3/uL High 1.8-7.5 [facility] Comment on above: Performed By: #### L [id number], [id number] ####Auger Operator: UNA YAZMIN ([id number])[facility] ([facility])[address] [place] [address] Manual differential performe d Ql (Bld)Ordered By: Myriam Choi on 07-19-2025 Basophils (Bld) [#/Vol] 0.3 10*3/uL High 0.0 - 0.2 10*3/uL [facility] Basophils/100 WBC (Bld) 2 % 0 - 2 % [facility] Cells Counted Total (Bld) [#] 100 {cells} [facility] Differential Method Manual differential performed [facility] Eosinophils (Bld) [#/Vol] 0.3 10*3/uL 0.0 - 0.5 10*3/uL [facility] Eosinophils/100 WBC (Bld) 2 % 0 - 6 % [facility] Hypochromia Ql (Bld) Slight Abnormal (none) [facility] Interpretation and review of laboratory results Abnormal [facility] Leukocyte morphology finding Nom (Bld) Normal [facility] Lymphocytes (Bld) [#/Vol] 3.3 10*3/uL 1.0 - 4.3 10*3/uL [facility] Lymphocytes/100 WBC (Bld) 21 % 15 - 45 % [facility] Monocytes (Bld) [#/Vol] 1.4 10*3/uL High 0.0 - 0.9 10*3/uL [facility] Monocytes/100 WBC (Bld) 9 % 5 - 13 % [facility] Neutrophils (Bld) [#/Vol] 10.3 10*3/uL High 1.8 - 7.5 10*3/uL [facility] Ovalocytes LM Ql (Bld) Slight Abnormal (none) [facility] Platelet morphology finding Nom (Bld) Normal [facility] Polychromasia LM Ql (Bld) Slight Abnormal (none) [facility] Segmented neutrophils/100 WBC (Bld) 66 % 38 - 82 % [facility] No Panel Informationon 07-19 Blood Expiration Date [id number] S [facility] Crossmatch interpretation COMP [facility] Dispense Status [facility] Blood Type 600 [facility] PRODUCT CODE [id number] [facility] ABO A [id number] Negative [facility] Volume 300 mL [facility] Progress Noteon 07-19-2025 Progress Note Normal [facility] Progress Noteon 07-15-2025 Progress Note Normal [facility] 36on 07-14-2025 36 Faxed signed order t o [facility] fax#[phone], and scanned to Media. Normal [facility] [address] Hess. Normal [facility] 36 [facility] faxed order to discontinue Hydralazine, and Spironolactone. Placed on nurses desk to have Dr. Hess sign it. Normal [facility] 36on 07-07-2025 36 Darby called back t o verify the diuretic instructions; she had the Lasix written down, so I verified that it was actually torsemide. She verbalized understanding and was thankful for the call. Normal [facility] 36 Normal [facility] Folates,Serum (Folic Acid)on 07-07-2025 FOLATES,SERUM 8.25 ng/mL Normal 4.60-34.80 [facility] Comment on above: Order Comment: 542-1 N Performed By: #### L 506.0200, L100.0600, L503.0106, L503.6030 #### [facility] [address] [place], [address] HH, Hemoglobin AND Hematocri ton 07-07-2025 Hematocrit (Bld) [Volume fraction] 23.3 % Low 40-54 [facility] Comment on above: Order Comment: 542-1 Performed By: #### L 506.0200, L100.0600, L503.0106, L503.6030 #### [facility] [address] [place], [address] Hemoglobin (Bld) [Mass/Vol] 7.3 g/dL Low 13.0-16.5 [facility] Comment on above: Order Comment: 54-1 Performed By: #### L 506.0200, L100.0600, L503.0106, L503.6030 #### [facility] [address] [place], [address] Iron+Iron Binding Capacityon 07-07-2025 Iron [Mass/Vol] 27 ug/dL Low 65-175 [facility] Comment on above: Order Comment: 542-1 Performed By: #### L 506.0200, L100.0600, L503.0106, L503.6030 #### [facility] [address] [place], [address] IRON SATURATION 9.6 Normal 9-55 [facility] Comment on above: Order Comment: 542-1 Performed By: #### L 506.0200, L100.0600, L503.0106, L503.6030 #### [facility] [address] [place], [address] TIBC 278 ug/dL Normal 250-450 [facility] Comment on above: Order Comment: 542-1 Performed By: #### L 506.0200, L100.0600, L503.0106, L503.6030 #### [facility] [address] [place], [address] UIBC 251 ug/dL Normal 228-428 [facility] Comment on above: Order Comment: 542-1 Performed By: #### L 506.0200, L100.0600, L503.0106, L503.6030 #### [facility] [address] [place], [address] Vitamin B12on 07-07-2025 Cobalamin (Vitamin B12) [Mass/Vol] 334 pg/mL Normal 180-914 [facility] Comment on above: Order Comment: 542-1 Performed By: #### L 506.0200, L100.0600, L503.0106, L503.6030 #### [facility] [address] [place], [address] 36on 07-06-2025 36 Cr 1.9, K+ 3.7, hemoglobin 7.1 on 07/05/25. BP's mostly 100-110's/50/60's; one SBP outlier of 94, one outlier of 121. HR's 60-70's. Note from nursing: Normal [facility] 36 [facility] faxed 07/05/25 BMP, and CBC, and vitals. Records to be scanned to chart. Normal [facility] 36 Normal [facility] Basic Metabolic Profile (BMP )on 07-05-2025 BUN/CRE 20.8 RATIO High 06-28 [facility] Comment on above: Order Comment: 542-1 N Performed By: #### L 506.0200, L100.0600, L503.0106, L503.6030 #### [facility] [address] [place], [address] Calcium [Mass/Vol] 8.5 mg/dL Normal 7.6-11.0 [facility] Comment on above: Order Comment: 542-1 N Performed By: #### L 506.0200, L100.0600, L503.0106, L503.6030 #### [facility] [address] [place], [address] Chloride [Moles/Vol] 101 mmol/L Normal 98-108 [facility] Comment on above: Order Comment: 542-1 N Performed By: #### L 506.0200, L100.0600, L503.0106, L503.6030 #### [facility] [address] [place], [address] CO2 [Moles/Vol] 28.6 mmol/L Normal 21.0-32.0 [facility] Comment on above: Order Comment: 542-1 N Performed By: #### L 506.0200, L100.0600, L503.0106, L503.6030 #### [facility] [address] [place], [address] Creatinine [Mass/Vol] 1.90 mg/dL High 0.70-1.20 [facility] Comment on above: Order Comment: 542-1 N Performed By: #### L 506.0200, L100.0600, L503.0106, L503.6030 #### [facility] [address] [place], [address] GAP 10 Normal 5-15 [facility] Comment on above: Order Comment: 542-1 N Performed By: #### L 506.0200, L100.0600, L503.0106, L503.6030 #### [facility] [address] [place], [address] GFR/1.73 sq M.predicted among non-blacks MDRD (S/P/Bld) [Vol rate/Area] 33 mL/min/{1.73_m2} Low >60 [facility] Comment on above: Order Comment: 542-1 N Result Comment: mL/m in/1.73m2 CKD-EPI Creatinine Equation (2020) Performed By: #### L 506.0200, L100.0600, L503.0106, L503.6030 #### [facility] [address] [place], [address] Glucose [Mass/Vol] 92 mg/dL Normal 70-99 [facility] Comment on above: Order Comment: 542-1 N Performed By: #### L 506.0200, L100.0600, L503.0106, L503.6030 #### [facility] [address] [place], [address] Potassium [Moles/Vol] 3.7 mmol/L Normal 3.3-5.1 [facility] Comment on above: Order Comment: 542-1 N Performed By: #### L 506.0200, L100.0600, L503.0106, L503.6030 #### [facility] [address] [place], [address] Sodium [Moles/Vol] 140 mmol/L Normal 133-145 [facility] Comment on above: Order Comment: 542-1 N Performed By: #### L 506.0200, L100.0600, L503.0106, L503.6030 #### [facility] Laboratory [address] [place], [address] Urea nitrogen [Mass/Vol] 40 mg/dL High 4-19 [facility] Comment on above: Order Comment: 542-1 N Performed By: #### L 506.0200, L100.0600, L503.0106, L503.6030 #### [facility] [address] [place], [address] CBC-Complete Blood Cnt No Di ffon 07-05-2025 Erythrocyte distribution width (RBC) [Ratio] 14.8 % High 11.6-14.6 [facility] Comment on above: Order Comment: 542-1 N Performed By: #### L 506.0200, L100.0600, L503.0106, L503.6030 #### [facility] [address] [place], [address] Hematocrit (Bld) [Volume fraction] 23.2 % Low 40-54 [facility] Comment on above: Order Comment: 542-1 N Performed By: #### L 506.0200, L100.0600, L503.0106, L503.6030 #### [facility] [address] [place], [address] Hemoglobin (Bld) [Mass/Vol] 7.1 g/dL Low 13.0-16.5 [facility] Comment on above: Order Comment: 542-1 N Performed By: #### L 506.0200, L100.0600, L503.0106, L503.6030 #### [facility] [address] [place], [address] MCH (RBC) [Entitic mass] 28.9 pg Normal 27.0-32.0 [facility] Comment on above: Order Comment: 542-1 N Performed By: #### L 506.0200, L100.0600, L503.0106, L503.6030 #### [facility] [address] [place], [address] MCHC (RBC) [Mass/Vol] 30.6 g/dL Low 32-36 [facility] Comment on above: Order Comment: 542-1 N Performed By: #### L 506.0200, L100.0600, L503.0106, L503.6030 #### [facility] [address] [place], [address] MCV (RBC) [Entitic vol] 94.3 fL High 80-94 [facility] Comment on above: Order Comment: 542-1 N Performed By: #### L 506.0200, L100.0600, L503.0106, L503.6030 #### [facility] [address] [place], [address] Platelet mean volume (Bld) [Entitic vol] 8.8 fL Normal 6.2-12.0 [facility] Comment on above: Order Comment: 542-1 N Performed By: #### L 506.0200, L100.0600, L503.0106, L503.6030 #### [facility] [address] [place], [address] Platelets (Bld) [#/Vol] 507 10*3/uL High 150-450 [facility] Comment on above: Order Comment: 542-1 N Performed By: #### L 506.0200, L100.0600, L503.0106, L503.6030 #### [facility] [address] [place], [address] RBC (Bld) [#/Vol] 2.46 10*6/uL Low 4.6-6.2 [facility] Comment on above: Order Comment: 542-1 N Performed By: #### L 506.0200, L100.0600, L503.0106, L503.6030 #### [facility] [address] [place], [address] RDW SD 49.7 fl High 35.1-43.9 [facility] Comment on above: Order Comment: 542-1 N Performed By: #### L 506.0200, L100.0600, L503.0106, L503.6030 #### [facility] [address] [place], [address] WBC (Bld) [#/Vol] 12.0 10*3/uL High 4.4-11.0 [facility] Comment on above: Order Comment: 542-1 N Performed By: #### L 506.0200, L100.0600, L503.0106, L503.6030 #### [facility] [address] [place], [address] Progress Noteon 06-30-2025 Progress Note Normal [facility] Basic Metabolic Profile (BMP )on 06-28-2025 BUN/CRE 23.4 RATIO High - [facility] Comment on above: Order Comment: 212.1 Performed By: #### L 500.2500 #### [facility] [address] [place], [address] Calcium [Mass/Vol] 8.4 mg/dL Normal 7.6-11.0 [facility] Comment on above: Order Comment: 212.1 Performed By: #### L 500.2500 #### [facility] [address] [place], [address] Chloride [Moles/Vol] 100 mmol/L Normal 98-108 [facility] Comment on above: Order Comment: 212.1 Performed By: #### L 500.2500 #### [facility] [address] [place], [address] CO2 [Moles/Vol] 27.4 mmol/L Normal 21.0-32.0 [facility] Comment on above: Order Comment: 212.1 Performed By: #### L 500.2500 #### [facility] [address] [place], [address] Creatinine [Mass/Vol] 1.72 mg/dL High 0.70-1.20 [facility] Comment on above: Order Comment: 212.1 Performed By: #### L 500.2500 #### [facility] [address] [place], [address] GAP 10 Normal 5-15 [facility] Comment on above: Order Comment: 212.1 Performed By: #### L 500.2500 #### [facility] [address] [place], [address] GFR/1.73 sq M.predicted among non-blacks MDRD (S/P/Bld) [Vol rate/Area] 38 mL/min/{1.73_m2} Low >60 [facility] Comment on above: Order Comment: 212.1 Result Comment: mL/m in/1.73m2 CKD-EPI Creatinine Equation (2020) Performed By: #### L 500.2500 #### [facility] [address] [place], [address] Glucose [Mass/Vol] 88 mg/dL Normal 70-99 [facility] Comment on above: Order Comment: 212.1 Performed By: #### L 500.2500 #### [facility] [address] [place], [address] Potassium [Moles/Vol] 3.9 mmol/L Normal 3.3-5.1 [facility] Comment on above: Order Comment: 212.1 Performed By: #### L 500.2500 #### [facility] [address] [place], [address] Sodium [Moles/Vol] 137 mmol/L Normal 133-145 [facility] Comment on above: Order Comment: 212.1 Performed By: #### L 500.2500 #### [facility] [address] [place], [address] Urea nitrogen [Mass/Vol] 40 mg/dL High 4-19 [facility] Comment on above: Order Comment: 212.1 Performed By: #### L 500.2500 #### [facility] [address] [place], [address] 36on 06-24-2025 36 Normal [facility] 36 Normal [facility] 36 06/24/25 BMP, blood pressure, pulse summary, and medication notes faxed from [facility]. Records scanned to Media. Normal [facility] Basic Metabolic Profile (BMP )on 06-24-2025 BUN/CRE 25.8 RATIO High 10-20 [facility] Comment on above: Order Comment: 212.1 Performed By: #### L 500.2500 #### [facility] [address] [place], [address] Calcium [Mass/Vol] 8.4 mg/dL Normal 7.6-11.0 [facility] Comment on above: Order Comment: 212.1 Performed By: #### L 500.2500 #### [facility] [address] [place], [address] Chloride [Moles/Vol] 97 mmol/L Low 98-108 [facility] Comment on above: Order Comment: 212.1 Performed By: #### L 500.2500 #### [facility] [address] [place], [address] CO2 [Moles/Vol] 26.9 mmol/L Normal 21.0-32.0 [facility] Comment on above: Order Comment: 212.1 Performed By: #### L 500.2500 #### [facility] [address] [place], [address] Creatinine [Mass/Vol] 1.80 mg/dL High 0.70-1.20 [facility] Comment on above: Order Comment: 212.1 Performed By: #### L 500.2500 #### [facility] [address] [place], [address] GAP 12 Normal 5-15 [facility] Comment on above: Order Comment: 212.1 Performed By: #### L 500.2500 #### [facility] [address] [place], [address] GFR/1.73 sq M.predicted among non-blacks MDRD (S/P/Bld) [Vol rate/Area] 36 mL/min/{1.73_m2} Low >60 [facility] Comment on above: Order Comment: 212.1 Result Comment: mL/m in/1.73m2 CKD-EPI Creatinine Equation (2020) Performed By: #### L 500.2500 #### [facility] [address] [place], [address] Glucose [Mass/Vol] 87 mg/dL Normal 70-99 [facility] Comment on above: Order Comment: 212.1 Performed By: #### L 500.2500 #### [facility] [address] [place], [address] Potassium [Moles/Vol] 3.8 mmol/L Normal 3.3-5.1 [facility] Comment on above: Order Comment: 212.1 Performed By: #### L 500.2500 #### [facility] [address] [place], [address] Sodium [Moles/Vol] 137 mmol/L Normal 133-145 [facility] Comment on above: Order Comment: 212.1 Performed By: #### L 500.2500 #### [facility] [address] [place], [address] Urea nitrogen [Mass/Vol] 47 mg/dL High 4-19 [facility] Comment on above: Order Comment: 212.1 Performed By: #### L 500.2500 #### [facility] [address] [place], [address] Progress Noteon 06-24-2025 Progress Note Attempted to meet with pt. He no longer resides here. Facility uncertain where he has moved to. Message left on primary contacts number Bereket to return call to the palliative group at [phone] [facility] BASIC METABOLIC PANELon 06-09 Anion gap [Moles/Vol] 15 mmol/L High 3-13 [facility] Comment on above: Performed By: #### L AB15 ####Auger Operator: UNA ARCE ([phone])[facility] (SBHLAB)[address] Calcium [Mass/Vol] 8.4 mg/dL Low 8.8-10.0 [facility] Comment on above: Performed By: #### L AB15 ####Auger Operator: UNA ARCE ([phone])[facility] [place] ([facility])[address] Chloride [Moles/Vol] 97 mmol/L Low 98-107 [facility] Comment on above: Performed By: #### L AB15 ####Auger Operator: UNA MOHRCER ([id number])[facility] [place] ([facility])[address] CO2 [Moles/Vol] 25 mmol/L Normal 23-31 [facility] Comment on above: Performed By: #### L AB15 ####Auger Operator: UNA ARCE ([id number])[facility] [place] ([facility])[address] Creatinine [Mass/Vol] 1.97 mg/dL High 0.72-1.25 [facility] Comment on above: Performed By: #### L AB15 ####Auger Operator: UNA STAUFFERMELANIE ([id number])[facility] [place] ([facility])[address] GLOMERULAR FILTRATION RATE ML/MIN/1.73 SQ M.PREDICTED 31.9 mL/min/1.73m*2 Low >60.0 [facility] Comment on above: Result Comment: Calc ulation based on the Chronic Kidney Disease Epidemiology Collaboration (CKD-EPI) equation refit without adjustment for race Performed By: #### L AB15 ####Auger Operator: UNA ARCE ([id number])[facility] [place] ([facility])[address] Glucose [Mass/Vol] 108 mg/dL Normal 82-115 [facility] Comment on above: Performed By: #### L AB15 ####Auger Operator: UNA ARCE ([id number])[facility] ([facility])[address] Potassium [Moles/Vol] 4.1 mmol/L Normal 3.5-5.1 [facility] Comment on above: Result Comment: [facility] potassium values may be up to 0.5 mmol/L lower than serum values. Performed By: #### L AB15 ####Auger Operator: UNA ARCE ([id number])[facility] ([facility])[address] Sodium [Moles/Vol] 137 mmol/L Normal 136-145 [facility] Comment on above: Performed By: #### L AB15 ####Auger Operator: UNA ARCE ([id number])[facility] Urea nitrogen [Mass/Vol] 51 mg/dL High 9-23 [facility] Comment on above: Performed By: #### L AB15 ####Auger Operator: UNA ARCE ([id number])[facility] ([facility] BLOOD TYPE AND SCREEN GELon 06-21-2025 ABO GROUPING A Normal [facility] Comment on above: Performed By: #### L [id number] ####Auger Operator: UNA ARCE ([id number])[facility] ([facility])[address] [place] [address] RH TYPE IN BLOOD Negative Normal [facility] Comment on above: Performed By: #### L [id number] ####Auger Operator: UNA ARCE ([id number])[facility] ([facility])[address] [place] [address] Basic Metabolic Profile (BMP )on 06-21-2025 BUN/CRE 25.4 RATIO High 10-20 [facility] Comment on above: Order Comment: 212.1 Performed By: #### L 100.0500, L500.2500 #### [facility] [address] [place], [address] Calcium [Mass/Vol] 8.4 mg/dL Normal 7.6-11.0 [facility] Comment on above: Order Comment: 212.1 Performed By: #### L 100.0500, L500.2500 #### [facility] [address] [place], [address] Chloride [Moles/Vol] 97 mmol/L Low 98-108 [facility] Comment on above: Order Comment: 212.1 Performed By: #### L 100.0500, L500.2500 #### [facility] [address] [place], [address] CO2 [Moles/Vol] 29.6 mmol/L Normal 21.0-32.0 [facility] Comment on above: Order Comment: 212.1 Performed By: #### L 100.0500, L500.2500 #### [facility] [address] [place], [address] Creatinine [Mass/Vol] 1.86 mg/dL High 0.70-1.20 [facility] Comment on above: Order Comment: 212.1 Performed By: #### L 100.0500, L500.2500 #### [facility] [address] [place], [address] GAP 10 Normal 5-15 [facility] Comment on above: Order Comment: 212.1 Performed By: #### L 100.0500, L500.2500 #### [facility] [address] [place], [address] GFR/1.73 sq M.predicted among non-blacks MDRD (S/P/Bld) [Vol rate/Area] 34 mL/min/{1.73_m2} Low >60 [facility] Comment on above: Order Comment: 212.1 Result Comment: mL/m in/1.73m2 CKD-EPI Creatinine Equation (2020) Performed By: #### L 100.0500, L500.2500 #### [facility] [address] [place], [address] Glucose [Mass/Vol] 93 mg/dL Normal 70-99 [facility] Comment on above: Order Comment: 212.1 Performed By: #### L 100.0500, L500.2500 #### [facility] [address] [place], [address] Potassium [Moles/Vol] 3.8 mmol/L Normal 3.3-5.1 [facility] Comment on above: Order Comment: 212.1 Performed By: #### L 100.0500, L500.2500 #### [facility] [address] [place], [address] Sodium [Moles/Vol] 136 mmol/L Normal 133-145 [facility] Comment on above: Order Comment: 212.1 Performed By: #### L 100.0500, L500.2500 #### [facility] [address] [place], [address] Urea nitrogen [Mass/Vol] 47 mg/dL High 4-19 [facility] Comment on above: Order Comment: 212.1 Performed By: #### L 100.0500, L500.2500 #### [facility] [address] [place], [address] Basic metabolic 1998 panelon 06-21-2025 Anion gap [Moles/Vol] 15 mmol/L High 3 - 13 mmol/L [facility] [employer] Calcium [Mass/Vol] 8.4 mg/dL Low 8.8 - 10. 0 mg/dL [facility] [employer] Chloride [Moles/Vol] 97 mmol/L Low 98 - 10 7 mmol/L [facility] [employer] CO2 [Moles/Vol] 25 mmol/L 23 - 31 mmol/L [facility] [employer] Creatinine [Mass/Vol] 1.97 mg/dL High 0.72 - 1.25 mg/dL [facility] GFR/1.73 sq M.predicted (S/P/Bld) [Vol rate/Area] 31.9 mL/min Low - PINF [facility] Comment on above: Calculation based on the Chronic Kidney Disease Epidemiology Collaboration (CKD-EPI) equation refit without adjustment for race Glucose [Mass/Vol] 108 mg/dL 82 - 115 mg/dL [facility] Interpretation and review of laboratory results Abnormal [facility] Potassium [Moles/Vol] 4.1 mmol/L 3.5 - 5.1 mmol/L [facility] Comment on above: Plasma potassium traci ues may be up to 0.5 mmol/L lower than serum values. Sodium [Moles/Vol] 137 mmol/L 136 - 145 mmol/L [facility] Urea nitrogen [Mass/Vol] 51 mg/dL High 9 - 23 mg/d L [facility] Blood type and Crossmatch pa valente (Bld)on 06-21-2025 ABO group Nom (Bld) A [facility] Blood group antibody screen GEL Ql Negative [facility] D Ag Ql (RBC) Negative [facility] CBC W Auto Differential pane l (Bld)Ordered By: Sallie Powell on 06-21-2025 Erythrocyte distribution width (RBC) [Ratio] 16.7 % High 11.5 - 15.0 % [facility] Hematocrit (Bld) [Volume fraction] 23.3 % Low 40.0 - 52.0 % [facility] Hemoglobin (Bld) [Mass/Vol] 7.4 g/dL Low 13.0 - 18.0 g/dL [facility] Interpretation and review of laboratory results Abnormal [facility] MCH (RBC) [Entitic mass] 29 pg 26. 0 - 34.0 pg [facility] MCHC (RBC) [Mass/Vol] 31.8 % 30.5 - 36.0 % [facility] MCV (RBC) [Entitic vol] 91.4 fL 77.0 - 99.0 fL [facility] Platelet mean volume (Bld) [Entitic vol] 8.5 fL Low 9.0 - 12.7 fL [facility] Platelets (Bld) [#/Vol] 513 10*3/uL High 140 - 440 10*3/uL [facility] RBC (Bld) [#/Vol] 2.55 10*6/uL Low 4.40 - 5.9 0 10*6/uL [facility] WBC (Bld) [#/Vol] 16.8 10*3/uL High 3.6 - 10.7 10*3/uL [facility] CBC WITH AUTO DIFFERENTIALon 06-21-2025 Erythrocyte distribution width (RBC) [Ratio] 16.7 % High 11.5-15.0 [facility] Comment on above: Performed By: #### L [id number], [id number] ####Auger Operator: UNA ARCE ([id number])[facility] [place] ([facility])[address] Hematocrit (Bld) [Volume fraction] 23.3 % Low 40.0-52.0 [facility] Comment on above: Performed By: #### L [id number], [id number] ####Auger Operator: UNA ARCE ([id number])[facility] (SB[facility])[address] Hemoglobin (Bld) [Mass/Vol] 7.4 g/dL Low 13.0-18.0 [facility] Comment on above: Performed By: #### L [id number], [id number] ####Auger Operator: UNA ARCE ([id number])[facility] [place] ([facility])[address] MCH (RBC) [Entitic mass] 29.0 pg Normal 26.0-34.0 [facility] Comment on above: Performed By: #### L [id number], [id number] ####Auger Operator: UNA ARCE ([id number])[facility] ([facility])[address] MCHC 31.8 % Normal 30.5-36.0 [facility] Comment on above: Performed By: #### L [id number], [id number] ####Auger Operator: UNA ARCE ([id number])[facility] ([facility])[address] MCV (RBC) [Entitic vol] 91.4 fL Normal 77.0-99.0 [facility] Comment on above: Performed By: #### L [id number], [id number] ####Auger Operator: UNA ARCE ([id number])[facility] (SBHLAB)[address] Platelet mean volume (Bld) [Entitic vol] 8.5 fL Low 9.0-12.7 [facility] Comment on above: Performed By: #### L [id number], [id number] ####Auger Operator: UNA ARCE ([id number])[facility] (SB[facility])[address] Platelets (Bld) [#/Vol] 513 10*3/uL High 140-440 [facility] Comment on above: Performed By: #### L [id number], [id number] ####Auger Operator: UNA ARCE ([id number])[facility]ENTERAngel [facility] (SB[facility])[address] RBC (Bld) [#/Vol] 2.55 10*6/uL Low 4.40-5.90 [facility] Comment on above: Performed By: #### L [id number], [id number] ####Auger Operator: UNA ARCE ([id number])[facility] ([facility])[address] WBC (Bld) [#/Vol] 16.8 10*3/uL High 3.6-10.7 [facility] Comment on above: Performed By: #### L [id number], [id number] ####Auger Operator: UNA ARCE ([id number])[facility] ([facility])[address] CBC-Complete Blood Cnt No Di ffon 06-21-2025 Erythrocyte distribution width (RBC) [Ratio] 16.8 % High 11.6-14.6 [facility] Comment on above: Order Comment: 212.1 Performed By: #### L 100.0500, L500.2500 #### [facility] [address] [place], [address] Hematocrit (Bld) [Volume fraction] 21.5 % Low 40-54 [facility] Comment on above: Order Comment: 212.1 Performed By: #### L 100.0500, L500.2500 #### [facility] [address] [place], [address] Hemoglobin (Bld) [Mass/Vol] 6.9 g/dL Low 13.0-16.5 [facility] Comment on above: Order Comment: 212.1 Performed By: #### L 100.0500, L500.2500 #### [facility] [address] [place], [address] MCH (RBC) [Entitic mass] 28.8 pg Normal 27.0-32.0 [facility] Comment on above: Order Comment: 212.1 Performed By: #### L 100.0500, L500.2500 #### [facility] [address] [place], [address] MCHC (RBC) [Mass/Vol] 32.1 g/dL Normal 32-36 [facility] Comment on above: Order Comment: 212.1 Performed By: #### L 100.0500, L500.2500 #### [facility] [address] [place], [address] MCV (RBC) [Entitic vol] 89.6 fL Normal 80-94 [facility] Comment on above: Order Comment: 212.1 Performed By: #### L 100.0500, L500.2500 #### [facility] [address] [place], [address] Platelet mean volume (Bld) [Entitic vol] 8.7 fL Normal 6.2-12.0 [facility] Comment on above: Order Comment: 212.1 Performed By: #### L 100.0500, L500.2500 #### [facility] [address] [place], [address] Platelets (Bld) [#/Vol] 457 10*3/uL High 150-450 [facility] Comment on above: Order Comment: 212.1 Performed By: #### L 100.0500, L500.2500 #### [facility] [address] [place], [address] RBC (Bld) [#/Vol] 2.40 10*6/uL Low 4.6-6.2 [facility] Comment on above: Order Comment: 212.1 Performed By: #### L 100.0500, L500.2500 #### [facility] [address] [place], [address] RDW SD 55.8 fl High 35.1-43.9 [facility] Comment on above: Order Comment: 212.1 Performed By: #### L 100.0500, L500.2500 #### [facility] [address] [place], [address] WBC (Bld) [#/Vol] 14.3 10*3/uL High 4.4-11.0 [facility] Comment on above: Order Comment: 212.1 Performed By: #### L 100.0500, L500.2500 #### [facility] [address] [place], [address] ECG 12-LEADon 06-21-2025 ECG 12-LEAD IMPRESSION: Sinus rhythm Atrial premature complexes Left anterior fascicular block Similar to prior on 04/13/25 Electronically Signed On 06-21-2025 23:12:12 EDT by Sagar Gilliam [facility] ED Nursing Noteon 06-21-2025 ED Nursing Note This RN at bedside for first 15 minutes of blood transfusion. Pt tolerating transfusion. VS updated in system. [facility] ED Nursing Note Patient arrives via EMS from [facility] following bloodwork that showed low hemoglobin. No overt signs of bleeding on arrival. Patient A&O4. Patient does endorse previous blood transfusions. Normal [facility] ED Provider Noteon ED Provider Note Normal [facility] Laboratory - Hematology and Cell countson 06-21-2025 Eosinophils (Bld) [#/Vol] 0.3 10*3/uL 0.0 - 0.5 10*3/uL [facility] Eosinophils/100 WBC (Bld) 2 % 0 - 6 % [facility] Giant platelets LM Ql (Bld) Rare Abnormal (none) [facility] Hypochromia Ql (Bld) Slight Abnormal (none) [facility] Lymphocytes (Bld) [#/Vol] 4 10*3/uL 1.0 - 4.3 10*3/uL [facility] Lymphocytes/100 WBC (Bld) 24 % 15 - 45 % [facility] Monocytes (Bld) [#/Vol] 1.2 10*3/uL High 0.0 - 0.9 10*3/uL [facility] Monocytes/100 WBC (Bld) 7 % 5 - 13 % [facility] Neutrophils (Bld) [#/Vol] 11.3 10*3/uL High 1.8 - 7.5 10*3/uL [facility] Ovalocytes LM Ql (Bld) Rare Abnormal (none) [facility] RBC morphology finding Nom (Bld) abnormal [facility] Segmented neutrophils/100 WBC (Bld) 67 % 38 - 82 % [facility] MANUAL DIFFERENTIAL (CELLAVI BANDAR)on 06-21-2025 BAND NEUTROPHILS TOTAL PER COUNTED LEUKOCYTES BY MANUAL COUNT Normal [facility] Comment on above: Performed By: #### L [id number], [id number] ####Auger Operator: UNA ARCE ([id number])[facility]ENTER[facility] ([facility] CENTER)[address] [place] [address] BASOPHILS TOTAL PER COUNTED LEUKOCYTES BY MANUAL COUNT Normal [facility] Comment on above: Performed By: #### L [id number], [id number] ####Auger Operator: UNA ARCE ([phone])[facility] CENTERAngel ESCOTO (SBHLAB)[address] [place] [address] [place] BLASTS TOTAL PER COUNTED LEUKOCYTES BY MANUAL COUNT Normal [facility] Comment on above: Performed By: #### L [id number], [id number] ####Auger Operator: UNA ARCE ([phone])[facility] (SBHLAB)[address] [place] [address] [place] EOSINOPHILS (10*3/UL) IN BLOOD-CELLAVISION 0.3 10*3/uL Normal 0.0-0.5 [facility] Comment on above: Performed By: #### L [id number], [id number] ####Auger Operator: UNA ARCE ([phone])[facility] (SBHLAB)[address] [place] [address] [place] EOSINOPHILS TOTAL PER COUNTED LEUKOCYTES BY MANUAL COUNT 2 High 0-1 [facility] Comment on above: Performed By: #### L [id number], [id number] ####Auger Operator: UNA ARCE ([phone])[facility] (SBHLAB)[address] [place] [address] [place] EOSINOPHILS/100 LEUKOCYTES IN BLOOD-CELLAVISION 2 % Normal 0-6 [facility] Comment on above: Performed By: #### L [id number], [id number] ####Auger Operator: UNA ARCE ([phone])[facility] ([facility] [place] [address] [place] HYPOCHROMIA (PRESENCE) IN BLOOD BY LIGHT MICROSCOPY Slight Abnormal (none) [facility] Comment on above: Performed By: #### L [id number], [id number] ####Auger Operator: UNA ARCE ([phone])[facility] [place] [address] [place] LYMPHOCYTES (10*3/UL) IN BLOOD-CELLAVISION 4.0 10*3/uL Normal 1.0-4.3 [facility] Comment on above: Performed By: #### L [id number], [id number] ####Auger Operator: UNA [phone])[facility] (SBHLAB)[address] [place] [address] [place] LYMPHOCYTES TOTAL PER COUNTED LEUKOCYTES BY MANUAL COUNT 24 Normal [facility] Comment on above: Performed By: #### L [id number], [id number] ####Auger Operator: UNA ARCE ([id number])[facility] (SBHLAB)[address] [place] [address] [place] LYMPHOCYTES/100 LEUKOCYTES IN BLOOD-CELLAVISION 24 % Normal 15-45 [facility] Comment on above: Performed By: #### L [id number], [id number] ####Auger Operator: UNA ARCE ([id number])[facility] [place] (SBHLAB)[address] [place] [address] [place] METAMYELOCYTES TOTAL PER COUNTED LEUKOCYTES BY MANUAL COUNT Normal [facility] Comment on above: Performed By: #### L [id number], [id number] ####Auger Operator: UNA ARCE ([id number])[facility] [place] (SBHLAB)[address] [place] [address] [place] MONOCYTES (10*3/UL) IN BLOOD-CELLAVISION 1.2 10*3/uL High 0.0-0.9 [facility] Comment on above: Performed By: #### L [id number], [id number] ####Auger Operator: UNA ARCE ([phone])[facility] [place] (SBHLAB)[address] [place] [address] [place] MONOCYTES TOTAL PER COUNTED LEUKOCYTES BY MANUAL COUNT 7 Normal [facility] Comment on above: Performed By: #### L [id number], [id number] ####Auger Operator: UNA ARCE ([phone])[facility] [place] (SBHLAB)[address] [place] [address] [place] MONOCYTES/100 LEUKOCYTES IN BLOOD-LUCIANA 7 % Normal 5-13 [facility] Comment on above: Performed By: #### L [id number], [id number] ####Auger Operator: UNA ARCE ([phone])[facility] (SBHLAB)[address] [place] [address] [place] MYELOCYTES COUNTED BY MANUAL COUNT Normal [facility] Comment on above: Performed By: #### L [id number], [id number] ####Auger Operator: UNA STAUFFERMELANIE ([id number])[facility] (SBHLAB)[address] [place] [address] [place] NEUTROPHILS TOTAL PER COUNTED LEUKOCYTES BY MANUAL COUNT 67 Normal [facility] Comment on above: Performed By: #### L [id number], [id number] ####Auger Operator: UNA BERMUDEZPEDRO ([phone])[facility] [place] (SBHLAB)[address] [place] [address] [place] OVALOCYTES PRESENCE IN BLOOD BY LIGHT MICROSCOPY Rare Abnormal (none) [facility] Comment on above: Performed By: #### L [id number], [id number] ####Auger Operator: UNA ARCE ([id number])[facility] [place] (SBHLAB)[address] [place] [address] [place] PLATELETS GIANT PRESENCE IN BLOOD BY LIGHT MICROSCOPY Rare Abnormal (none) [facility] Comment on above: Performed By: #### L [id number], [id number] ####Auger Operator: UNA ARCE ([id number])[facility] [place] (SBHLAB)[address] [place] [address] [place] PROMYELOCYTES TOTAL PER COUNTED LEUKOCYTES BY MANUAL COUNT Normal [facility] Comment on above: Performed By: #### L [id number], [id number] ####Auger Operator: UNA ARCE ([id number])[facility] [place] (SBHLAB)[address] [place] [address] [place] RBC MORPHOLOGY IN BLOOD abnormal Normal S [facility] Comment on above: Performed By: #### L [id number], [id number] ####Auger Operator: UNA ARCE ([phone])[facility] [place] (SBHLAB)[address] [place] [address] [place] SEGMENTED NEUTROPHILS (10*3/UL) IN BLOOD-CELLAVISION 11.3 10*3/uL High 1.8-7.5 [facility] Comment on above: Performed By: #### L [id number], [id number] ####Auger Operator: UNA STAUFFERMELANIE ([phone])[facility] (SBHLAB)[address] SEGMENTED NEUTROPHILS/100 LEUKOCYTES-CE 67 % Normal 38-82 [facility] Comment on above: Performed By: #### L [id number], [id number] ####Auger Operator: UNA BERMUDEZPEDRO ([id number])[facility] [place] (SBHLAB)[address] UNCLASSIFIED CELLS TOTAL PER COUNTED LEUKOCYTES BY MANUAL COUNT [facility] Comment on above: Performed By: #### L [id number], [id number] ####Auger Operator: UNA STAUFFERMELANIE ([phone])[facility] [place] (SBHLAB)[address] VARIANT LYMPHOCYTES TOTAL PER COUNTED LEUKOCYTES BY MANUAL COUNT [facility] Comment on above: Performed By: #### L [id number], [id number] ####Auger Operator: UNA BERMUDEZPEDRO ([phone])[facility] [place] (SBHLAB)[address] No Panel Informationon 06-21 P Max 17 degrees [facility] HI Interval 189 ms [facility] QRS Max -50 degrees [facility] QRSD Interval 116 ms [facility] QT Interval 434 ms [facility] QTC Interval 436 ms [facility] T Wave Max 37 degrees [facility] Sinus rhythm Atrial premature complexes Left anterior fascicular block Similar to prior on 04/13/25 Electronically Signed On 06-21-2025 23:12:12 EDT by Sagar Posey, - 06/21/2025 IMPRESSION: Sinus rhythm Atrial premature complexes Left anterior fascicular block Similar to prior on 04/13/25 Electronically Signed On 06-21-2025 23:12:12 EDT by Sagar Gilliam [facility] Blood Expiration Date [id number] S [facility] Crossmatch interpretation COMP [facility] Dispense Status Transfused [facility] lt Product Blood Type 600 [facility] PRODUCT CODE [id number] [facility] Unit ABO A [facility] Unit Number [id number] [facility] RH Negative [facility] Unit Volume 300 mL [facility] Atypical Lymphocytes Manual [facility] Bands Manual [facility] Basophils Manual [facility] alth Blasts Manual [facility]alt h Eosinophils Manual 2 High 0 - 1 [facility] Interpretation and review of laboratory results Abnormal [facility] Lymphocytes Manual 24 [facility] Metamyelocytes Manual [facility] Monocytes Manual 7 [facility] alth Myelocytes Manual [facility] ealt Neutrophils Manual 67 [facility] Promyelocytes Manual [facility] Unclassified Cells, Manual [facility] Vital signson 06-21-2025 Heart rate 63 /min bpm [facility] 36on 06-18-2025 36 Noted; thank you. Normal [facility] 36on 06-17-2025 36 Normal [facility] 36 Normal [facility] BASIC METABOLIC PANELon Anion gap [Moles/Vol] 13 mmol/L Normal 3-13 [facility] Comment on above: Performed By: #### L [id number] ####Auger Operator: ANAHY AVILA ([phone])[facility] JAN R[place]TMAN (SWRLAB)[address] [place] [address] [place] Calcium [Mass/Vol] 9.2 mg/dL Normal 8.8-10.0 [facility] Comment on above: Performed By: #### L [id number] ####Auger Operator: ANAHY AVILA ([id number])[facility] [place] [place] (SWRLAB)[address] [place] [address] [place] Chloride [Moles/Vol] 98 mmol/L Normal 98-107 [facility] Comment on above: Performed By: #### L [id number] ####Auger Operator: ANAHY AVILA ([phone])[facility] JAN [place] (SWRLAB)[address] [place] [address] [place] CO2 [Moles/Vol] 29 mmol/L Normal 23-31 [facility] Comment on above: Performed By: #### L [id number] ####Auger Operator: ANAHY AVILA ([id number])[facility] CENTERAngel [place] (SWRLAB)[address] [place] [address] [place] Creatinine [Mass/Vol] 2.05 mg/dL High 0.72-1.25 [facility] Comment on above: Performed By: #### L [id number] ####Auger Operator: ANAHY AVILA ([phone])[facility] [place] (SWRLAB)[address] [place] [address] [place] GLOMERULAR FILTRATION RATE ML/MIN/1.73 SQ M.PREDICTED 30.4 mL/min/1.73m*2 Low >60.0 [facility] Comment on above: Result Comment: Calc ulation based on the Chronic Kidney Disease Epidemiology Collaboration (CKD-EPI) equation refit without adjustment for race Performed By: #### L [id number] ####Auger Operator: ANAHY AVILA ([id number])[facility] [place] (SWRLAB)[address] [place] [address] [place] Glucose [Mass/Vol] 109 mg/dL Normal 82-115 [facility] Comment on above: Performed By: #### L [id number] ####Auger Operator: ANAHY AVILA ([phone])[facility] [place] (SWRLAB)[address] [place] [address] [place] Potassium [Moles/Vol] 4.3 mmol/L Normal 3.5-5.1 [facility] Comment on above: Result Comment: [facility] potassium values may be up to 0.5 mmol/L lower than serum values. Performed By: #### L [id number] ####Auger Operator: ANAHY AVILA ([phone])[facility] [place] (SWRLAB)[address] [place] [address] [place] Sodium [Moles/Vol] 140 mmol/L Normal 136-145 [facility] Comment on above: Performed By: #### L [id number] ####Auger Operator: ANAHY AVILA ([id number])[facility] SID (SWRLAB)[address] Urea nitrogen [Mass/Vol] 54 mg/dL High 9-23 [facility] Comment on above: Performed By: #### L [id number] ####Auger Operator: ANAHY AVILA ([id number])[facility] SID (SWRLAB)[address] Basic metabolic 1998 panelon 06-17-2025 Anion gap [Moles/Vol] 13 mmol/L 3 - 13 mmol/L [facility] Calcium [Mass/Vol] 9.2 mg/dL 8.8 - 10. 0 mg/dL [facility] Chloride [Moles/Vol] 98 mmol/L 98 - 10 7 mmol/L [facility] CO2 [Moles/Vol] 29 mmol/L 23 - 31 mmol/L [facility] Creatinine [Mass/Vol] 2.05 mg/dL High 0.72 - 1.25 mg/dL [facility] GFR/1.73 sq M.predicted (S/P/Bld) [Vol rate/Area] 30.4 mL/min Low - PINF [facility] Comment on above: Calculation based on the Chronic Kidney Disease Epidemiology Collaboration (CKD-EPI) equation refit without adjustment for race Glucose [Mass/Vol] 109 mg/dL 82 - 115 mg/dL [facility] Interpretation and review of laboratory results Abnormal [facility] Potassium [Moles/Vol] 4.3 mmol/L 3.5 - 5.1 mmol/L [facility] Comment on above: Plasma potassium traci ues may be up to 0.5 mmol/L lower than serum values. Sodium [Moles/Vol] 140 mmol/L 136 - 145 mmol/L [facility] Urea nitrogen [Mass/Vol] 54 mg/dL High 9 - 23 mg/d L [facility] CBC W Auto Differential pane l (Bld)Ordered By: Jessica Maldonado on 06-17-2025 Basophils (Bld) [#/Vol] 0.1 10*3/uL 0.0 - 0.2 10*3/uL [facility] Basophils/100 WBC (Bld) 0.7 % 0.0 - 2.0 % [facility] Eosinophils (Bld) [#/Vol] 0.4 10*3/uL 0.0 - 0.5 10*3/uL [facility] Eosinophils/100 WBC (Bld) 2.2 % 0.0 - 6.0 % [facility] Erythrocyte distribution width (RBC) [Ratio] 17.2 % High 11.5 - 15.0 % [facility] Hematocrit (Bld) [Volume fraction] 25.7 % Low 40.0 - 52.0 % [facility] Hemoglobin (Bld) [Mass/Vol] 8.2 g/dL Low 13.0 - 18.0 g/dL [facility] Immature granulocytes (Bld) [#/Vol] 0.2 10*3/uL High NINF - 0.1 10*3/uL [facility] Immature granulocytes/100 WBC (Bld) 1 % 0.0 - 2.0 % [facility] Interpretation and review of laboratory results Abnormal [facility] Lymphocytes (Bld) [#/Vol] 2.9 10*3/uL 1.0 - 4.3 10*3/uL [facility] Lymphocytes/100 WBC (Bld) 17.2 % 15.0 - 45.0 % [facility] MCH (RBC) [Entitic mass] 29.1 pg 26. 0 - 34.0 pg [facility] MCHC (RBC) [Mass/Vol] 31.9 % 30.5 - 36.0 % [facility] MCV (RBC) [Entitic vol] 91.1 fL 77.0 - 99.0 fL [facility] Monocytes (Bld) [#/Vol] 1.5 10*3/uL High 0.0 - 0.9 10*3/uL [facility] Monocytes/100 WBC (Bld) 9.1 % 5.0 - 13.0 % [facility] Neutrophils (Bld) [#/Vol] 11.5 10*3/uL High 1.8 - 7.5 10*3/uL [facility] Neutrophils/100 WBC (Bld) 69.8 % 38.0 - 82.0 % [facility] Nucleated RBC/100 WBC (Bld) [Ratio] 0 % [facility] Platelet mean volume (Bld) [Entitic vol] 8.7 fL Low 9.0 - 12.7 fL [facility] Comment on above: MPV is a calculated measurement using platelet volume ratio Platelets (Bld) [#/Vol] 517 10*3/uL High 140 - 440 10*3/uL [facility] RBC (Bld) [#/Vol] 2.82 10*6/uL Low 4.40 - 5.9 0 10*6/uL [facility] WBC (Bld) [#/Vol] 16.5 10*3/uL High 3.6 - 10.7 10*3/uL [facility] Moderate Anisocytosi s Slight Hypochromia [facility] CBC WITH AUTO DIFFERENTIALon 06-17-2025 Basophils (Bld) [#/Vol] 0.1 10*3/uL Normal 0.0-0.2 [facility] Comment on above: Performed By: #### L [id number] ####Auger Operator: ANAHY AVILA ([phone])[facility] [place] [place] (SWRLAB)[address] [place] [address] [place] Basophils/100 WBC (Bld) 0.7 % Normal 0.0-2.0 S [facility] Comment on above: Performed By: #### L [id number] ####Auger Operator: ANAHY AVILA ([phone])[facility] [place] [place] (SWRLAB)[address] [place] [address] [place] Eosinophils (Bld) [#/Vol] 0.4 10*3/uL Normal 0.0-0.5 [facility] Comment on above: Performed By: #### L [id number] ####Auger Operator: ANAHY AVILA ([id number])[facility] [place] [place] (SWRLAB)[address] [place] [address] [place] Eosinophils/100 WBC (Bld) 2.2 % Normal 0.0-6.0 [facility] Comment on above: Performed By: #### L [id number] ####Auger Operator: ANAHY AVILA ([phone])[facility] [place] [place] (SWRLAB)[address] [place] [address] Erythrocyte distribution width (RBC) [Ratio] 17.2 % High 11.5-15.0 [facility] Comment on above: Performed By: #### L [id number] ####Auger Operator: ANAHY AVILA ([phone])LYNETTE [place]TO[place] (SWRLAB)[address] [place] [address] Hematocrit (Bld) [Volume fraction] 25.7 % Low 40.0-52.0 [facility] Comment on above: Performed By: #### L [id number] ####Auger Operator: ANAHY AVILA ([phone])[facility]ENTER[facility] [place] (SWRLAB)[address] [place] [address] Hemoglobin (Bld) [Mass/Vol] 8.2 g/dL Low 13.0-18.0 [facility] Comment on above: Performed By: #### L [id number] ####Auger Operator: ANAHY AVILA ([phone])[facility]ENTER[facility] [place] (SWRLAB)[address] [place] [address] IMMATURE GRANS % 1.0 % Normal 0.0-2.0 [facility] Comment on above: Performed By: #### L [id number] ####Auger Operator: ANAHY AVILA ([id number])[facility]TE [place] (SWRLAB)[address] [place] [address] IMMATURE GRANS ABSOLUTE 0.2 10*3/uL High <0.1 [facility] Comment on above: Result Comment: ORDE R COMMENTS:Moderate AnisocytosisSlight Hypochromia Performed By: #### L [id number] ####Auger Operator: ANAHY AVILA ([phone])[facility] [place] (SWRLAB)[address] [place] [address] Lymphocytes (Bld) [#/Vol] 2.9 10*3/uL Normal 1.0-4.3 [facility] Comment on above: Performed By: #### L [id number] ####Auger Operator: ANAHY AVILA ([phone])[facility]TE [place] (SWRLAB)[address] [place] [address] [place] Lymphocytes/100 WBC (Bld) 17.2 % Normal 15.0-45.0 [facility] Comment on above: Performed By: #### L [id number] ####Auger Operator: ANAHY AVILA ([id number])[facility] [place] (SWRLAB)[address] [place] [address] MCH (RBC) [Entitic mass] 29.1 pg Normal 26.0-34.0 [facility] Comment on above: Performed By: #### L [id number] ####Auger Operator: ANAHY AVILA ([phone])[facility] [place] (SWRLAB)[address] [place] [address] MCHC 31.9 % Normal 30.5-36.0 [facility] Comment on above: Performed By: #### L [id number] ####Auger Operator: ANAHY AVILA ([phone])[facility] [place] (SWRLAB)[address] [place] [address] [place] MCV (RBC) [Entitic vol] 91.1 fL Normal 77.0-99.0 S [facility] Comment on above: Performed By: #### L [id number] ####Auger Operator: ANAHY AVILA ([phone])[facility] [place] (SWRLAB)[address] [place] [address] [place] Monocytes (Bld) [#/Vol] 1.5 10*3/uL High 0.0-0.9 [facility] Comment on above: Performed By: #### L [id number] ####Auger Operator: ANAHY AVILA ([phone])LYNETTE [place] (SWRLAB)[address] [place] [address] [place] Monocytes/100 WBC (Bld) 9.1 % Normal 5.0-13.0 S [facility] Comment on above: Performed By: #### L [id number] ####Auger Operator: ANAHY AVILA ([phone])LYNETTE [place] (SWRLAB)[address] [place] [address] NEUTROPHILS ABSOLUTE 11.5 10*3/uL High 1.8-7.5 [facility] Comment on above: Performed By: #### L [id number] ####Auger Operator: ANAHY AVILA ([phone])[facility] [place] (SWRLAB)[address] [place] [address] Neutrophils/100 WBC (Bld) 69.8 % Normal 38.0-82.0 [facility] Comment on above: Performed By: #### L [id number] ####Auger Operator: ANAHY AVILA ([phone])[facility] [place] (SWRLAB)[address] [place] [address] NRBC 0.0 /100 WBCs Normal 0.0-2.0 [facility] Comment on above: Performed By: #### L [id number] ####Auger Operator: ANAHY AVILA ([phone])[facility] [place] (SWRLAB)[address] [place] [address] Platelet mean volume (Bld) [Entitic vol] 8.7 fL Low 9.0-12.7 [facility] Comment on above: Result Comment: MPV is a calculated measurement using platelet volume ratio Performed By: #### L [id number] ####Auger Operator: ANAHY AVILA ([phone])[facility] [place] (SWRLAB)[address] [place] [address] Platelets (Bld) [#/Vol] 517 10*3/uL High 140-440 [facility] Comment on above: Performed By: #### L [id number] ####Auger Operator: ANAHY AVILA ([phone])[facility] [place] (SWRLAB)[address] [place] [address] RBC (Bld) [#/Vol] 2.82 10*6/uL Low 4.40-5.90 [facility] Comment on above: Performed By: #### L [id number] ####Auger Operator: ANAHY AVILA ([phone])[facility] RITTMAN (SWRLAB)[address] WBC (Bld) [#/Vol] 16.5 10*3/uL High 3.6-10.7 [facility] Comment on above: Performed By: #### L [id number] ####Auger Operator: ANAHY AVILA ([phone])[facility]ENTERAngel [place] (SWRLAB)[address] Progress Noteon 06-17-2025 Progress Note [facility] Progress Note Normal [facility] Progress Noteon 06-02-2025 Progress Note Normal [facility] Progress Noteon 05-19-2025 Progress Note Normal [facility] Progress Noteon 05-11-2025 Progress Note Normal [facility] Progress Noteon 05-06-2025 Progress Note Normal [facility] Progress Noteon 05-04-2025 Progress Note Normal [facility] Progress Noteon 05-03-2025 Progress Note [facility] Progress Note CT abdomen with mura l thickening involving the cecum and terminal ileum concern for neoplasm versus inflammation. Seen by GI with plan for EGD and colonoscopy once stable. -GI follow-up Normal [facility] Progress Note Noted to have irregular heart rhythm during hospitalization and multiple EKGs show sinus rhythm with frequent PACs. -Continue Toprol 25 mg p.o. daily Normal [facility] Progress Note Normal [facility] Progress Note Creatinine 1.46 on admission. Peak creatinine 1.78. Most recent creatinine 1.8 per labs 04/26/2025 - Continue to monitor - may have to accept a higher creatinine to keep him out of HF Normal [facility] Progress Note Bedside thoracentesi s 04/09/2025 with 1 L removed from the left and 600 mL removed from the right. Repeat left thoracentesis 04/14/2025 with 600 mL removed. 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 NO angina. - no ASA 2/2 anemia - continue Toprol 25 mg po daily - continue atorvastatin 20 mg po daily - not a candidate or invasive workup due to anemia, advanced age and frailty Normal [facility] Progress Note Normal [facility] Progress Noteon 04-27-2025 Progress Note Normal [facility] Progress Noteon 04-20-2025 Progress Note Normal [facility] Progress Noteon 04-19-2025 Progress Note Normal [facility] [id number] 04-18-2025 [id number] Normal [facility] [id number] 04-17-2025 [id number] Normal [facility] [id number] [facility] - [facility] Member [address] [place] [address] [phone] Patient/Family Choice Normal [facility] [id number] Normal [facility] CBC W Auto Differential pane l (Bld)on 04-17-2025 Erythrocyte distribution width (RBC) [Ratio] 25.7 % High 11.5 - 15.0 % [facility] Hematocrit (Bld) [Volume fraction] 27.9 % Low 40.0 - 52.0 % [facility] Hemoglobin (Bld) [Mass/Vol] 7.9 g/dL Low 13.0 - 18.0 g/dL [facility] MCH (RBC) [Entitic mass] 23.8 pg Low 26. 0 - 34.0 pg [facility] MCHC (RBC) [Mass/Vol] 28.3 % Low 30.5 - 36.0 % [facility] MCV (RBC) [Entitic vol] 84 fL 77.0 - 99.0 fL [facility] Platelet mean volume (Bld) [Entitic vol] 9 fL 9.0 - 12.7 fL [facility] Platelets (Bld) [#/Vol] 419 10*3/uL 140 - 440 10*3/uL [facility] RBC (Bld) [#/Vol] 3.32 10*6/uL Low 4.40 - 5.9 0 10*6/uL [facility] WBC (Bld) [#/Vol] 12 10*3/uL High 3.6 - 10.7 10*3/uL [facility] CBC WITH AUTO DIFFERENTIALon 04-17-2025 Erythrocyte distribution width (RBC) [Ratio] 25.7 % High 11.5-15.0 [facility] Comment on above: Performed By: #### L [id number], [id number] ####Auger Operator: UNA ARCE ([id number])[facility] (SBHLAB)[address] Hematocrit (Bld) [Volume fraction] 27.9 % Low 40.0-52.0 [facility] Comment on above: Performed By: #### L [id number], [id number] ####Auger Operator: UNA ARCE ([phone])[facility] (SBHLAB)[address] [place] [address] Hemoglobin (Bld) [Mass/Vol] 7.9 g/dL Low 13.0-18.0 [facility] Comment on above: Performed By: #### iGlbert [id number], [id number] ####Auger Operator: UNA ARCE ([phone])[facility] (SBHLAB)[address] [place] [address] MCH (RBC) [Entitic mass] 23.8 pg Low 26.0-34.0 [facility] Comment on above: Performed By: #### L [id number], [id number] ####Auger Operator: UNA ARCE ([phone])[facility] (SBHLAB)[address] MCHC 28.3 % Low 30.5-36.0 [facility] Comment on above: Performed By: #### L [id number], [id number] ####Auger Operator: UNA ARCE ([phone])[facility] (SBHLAB)[address] MCV (RBC) [Entitic vol] 84.0 fL Normal 77.0-99.0 S [facility] Comment on above: Performed By: #### L [id number], [id number] ####Auger Operator: UNA ARCE ([phone])[facility] (SBHLAB)[address] Platelet mean volume (Bld) [Entitic vol] 9.0 fL Normal 9.0-12.7 [facility] Comment on above: Performed By: #### L [id number], [id number] ####Auger Operator: UNA ARCE ([id number])[facility]ENTER[facility] (SBHLAB)[address] Platelets (Bld) [#/Vol] 419 10*3/uL Normal 140-440 [facility] Comment on above: Performed By: #### L [id number], [id number] ####Auger Operator: UNA ARCE ([id number])[facility] (SBHLAB)[address] [place] [address] RBC (Bld) [#/Vol] 3.32 10*6/uL Low 4.40-5.90 [facility] Comment on above: Performed By: #### L BR8713, [id number] ####Auger Operator: UNA ARCE ([phone])[facility]ENTERAngel [place] (SBHLAB)[address] [place] [address] WBC (Bld) [#/Vol] 12.0 10*3/uL High 3.6-10.7 [facility] Comment on above: Performed By: #### L [id number], [id number] ####Auger Operator: UNA ARCE ([phone])[facility] (SB[facility])[address] COMPREHENSIVE METABOLIC PANE Anant 04-17-2025 Albumin [Mass/Vol] 2.1 g/dL Low 3.4-4.8 [facility] Comment on above: Performed By: #### L AB103, LAB17 ####Auger Operator: UNA ARCE ([phone])[facility] (SBHLAB)[address] ALP [Catalytic activity/Vol] 49 U/L Normal 40-150 [facility] Comment on above: Performed By: #### L AB103, LAB17 ####Auger Operator: UNA ARCE ([phone])[facility] [place] (SBHLAB)[address] [place] [address] [place] ALT [Catalytic activity/Vol] U/L Normal <40 [facility] Comment on above: Performed By: #### L AB103, LAB17 ####Auger Operator: UNA ARCE ([phone])[facility] [place] (SBHLAB)[address] Anion gap [Moles/Vol] 10 mmol/L Normal 3-13 [facility] Comment on above: Performed By: #### L AB103, LAB17 ####Auger Operator: UNA ARCE ([id number])[facility] [place] (SBHLAB)[address] AST [Catalytic activity/Vol] 22 U/L Normal <34 [facility] Comment on above: Performed By: #### L AB103, LAB17 ####Auger Operator: UNA ARCE ([phone])[facility] [place] (SBHLAB)[address] [place] [address] [place] Bilirubin [Mass/Vol] 0.5 mg/dL Normal <1.2 [facility] Comment on above: Performed By: #### L AB103, LAB17 ####Auger Operator: UNA ARCE ([id number])[facility] [place] (SBHLAB)[address] [place] [address] [place] Calcium [Mass/Vol] 8.4 mg/dL Low 8.8-10.0 [facility] Comment on above: Performed By: #### L AB103, LAB17 ####Auger Operator: UNA ARCE ([phone])[facility] (SBHLAB)[address] Chloride [Moles/Vol] 88 mmol/L Low 98-107 [facility] Comment on above: Performed By: #### L AB103, LAB17 ####Auger Operator: UNA ARCE ([id number])[facility] (SBHLAB)[address] CO2 [Moles/Vol] 40 mmol/L High 23-31 [facility] Comment on above: Performed By: #### L AB103, LAB17 ####Auger Operator: UNA ARCE ([id number])[facility] (HLAB)[address] Creatinine [Mass/Vol] 1.67 mg/dL High 0.72-1.25 [facility] Comment on above: Performed By: #### L DERICK, LAB17 ####Auger Operator: UNA ARCE ([id number])[facility] (HLAB)[address] GLOMERULAR FILTRATION RATE ML/MIN/1.73 SQ M.PREDICTED 38.9 mL/min/1.73m*2 Low >60.0 [facility] Comment on above: Result Comment: Calc ulation based on the Chronic Kidney Disease Epidemiology Collaboration (CKD-EPI) equation refit without adjustment for race Performed By: #### L 103, LAB17 ####Auger Operator: UNA ARCE ([phone])[facility] (SBHLAB)[address] [place] [address] [place] Glucose [Mass/Vol] 94 mg/dL Normal 82-115 [facility] Comment on above: Performed By: #### L AB103, LAB17 ####Auger Operator: UNA ARCE ([phone])[facility] (HLAB)[address] Potassium [Moles/Vol] 3.6 mmol/L Normal 3.5-5.1 [facility] Comment on above: Result Comment: Plas ma potassium values may be up to 0.5 mmol/L lower than serum values. Performed By: #### L AB103, LAB17 ####Auger Operator: UNA ARCE ([phone])[facility] [place] (SBHLAB)[address] Protein [Mass/Vol] 5.8 g/dL Low 6.4-8.3 [facility] Comment on above: Performed By: #### L AB103, LAB17 ####Auger Operator: UNA ARCE ([id number])[facility] [place] (SBHLAB)[address] Sodium [Moles/Vol] 138 mmol/L Normal 136-145 [facility] Comment on above: Performed By: #### L AB103, LAB17 ####Auger Operator: UNA ARCE ([phone])[facility] (SBHLAB)[address] Urea nitrogen [Mass/Vol] 46 mg/dL High 9-23 [facility] Comment on above: Performed By: #### L AB103, LAB17 ####Auger Operator: UNA ARCE ([id number])[facility] (SBHLAB)[address] Comprehensive metabolic 1998 panelon 04-17-2025 Albumin [Mass/Vol] 2.1 g/dL Low 3.4 - 4.8 g/dL [facility] ALP [Catalytic activity/Vol] 49 U/L 40 - 150 U/L [facility] ALT [Catalytic activity/Vol] U/L NINF - 40 U/L [facility] Anion gap [Moles/Vol] 10 mmol/L 3 - 13 mmol/L [facility] AST [Catalytic activity/Vol] 22 U/L NINF - 34 U/L [facility] Bilirubin [Mass/Vol] 0.5 mg/dL NINF - 1.2 mg/dL [facility] Calcium [Mass/Vol] 8.4 mg/dL Low 8.8 - 10. 0 mg/dL [facility] Chloride [Moles/Vol] 88 mmol/L Low 98 - 10 7 mmol/L [facility] CO2 [Moles/Vol] 40 mmol/L High 23 - 31 mmol/L [facility] Creatinine [Mass/Vol] 1.67 mg/dL High 0.72 - 1.25 mg/dL [facility] GFR/1.73 sq M.predicted (S/P/Bld) [Vol rate/Area] 38.9 mL/min Low - PINF [facility] Glucose [Mass/Vol] 94 mg/dL 82 - 115 mg/dL [facility] Interpretation and review of laboratory results Abnormal [facility] Potassium [Moles/Vol] 3.6 mmol/L 3.5 - 5.1 mmol/L [facility] Protein [Mass/Vol] 5.8 g/dL Low 6.4 - 8.3 g/dL [facility] Sodium [Moles/Vol] 138 mmol/L 136 - 145 mmol/L [facility] Urea nitrogen [Mass/Vol] 46 mg/dL High 9 - 23 mg/d L [facility] Laboratory - Chemistry and C hemistry - challengeon 04-17-2025 Magnesium [Mass/Vol] 1.8 mg/dL 1.6 - 2 .6 mg/dL [facility] Laboratory - Hematology and Cell countson 04-17-2025 Anisocytosis Ql (Bld) Slight Abnormal (none) [facility] Basophils (Bld) [#/Vol] 0.4 10*3/uL High 0.0 - 0.2 10*3/uL [facility] Basophils/100 WBC (Bld) 3 % High 0 - 2 % [facility] Eosinophils (Bld) [#/Vol] 0.2 10*3/uL 0.0 - 0.5 10*3/uL [facility] Eosinophils/100 WBC (Bld) 2 % 0 - 6 % [facility] Hypochromia Ql (Bld) Moderate Abnormal (none) [facility] Lymphocytes (Bld) [#/Vol] 1.3 10*3/uL 1.0 - 4.3 10*3/uL [facility] Lymphocytes/100 WBC (Bld) 11 % Low 15 - 45 % [facility] Monocytes (Bld) [#/Vol] 0.8 10*3/uL 0.0 - 0.9 10*3/uL [facility] Monocytes/100 WBC (Bld) 7 % 5 - 13 % [facility] Neutrophils (Bld) [#/Vol] 9.2 10*3/uL High 1.8 - 7.5 10*3/uL [facility] Poikilocytosis LM Ql (Bld) Moderate Abnormal (none) [facility] Polychromasia LM Ql (Bld) Slight Abnormal (none) [facility] RBC morphology finding Nom (Bld) abnormal [facility] Segmented neutrophils/100 WBC (Bld) 77 % 38 - 82 % [facility] Stomatocytes LM Ql (Bld) Moderate Abnormal (none) [facility] Target cells LM Ql (Bld) Slight Abnormal (none) [facility] MAGNESIUMon 04-17-2025 Magnesium [Mass/Vol] 1.8 mg/dL Normal 1.6-2.6 [facility] Comment on above: Result Comment: YARELI [place] COMMENTS:Higher values can be expected in females during menses. Performed By: #### L AB103, LAB17 ####Auger Operator: UNA ARCE ([phone])[facility] (SB[facility]AB)[address] MANUAL DIFFERENTIAL (CELLAVI BANDAR)on 04-17-2025 ANISOCYTOSIS PRESENCE IN BLOOD BY LIGHT MICROSCOPY Slight Abnormal (none) [facility] Comment on above: Performed By: #### Gilbert [id number], [id number] ####Auger Operator: UNA ARCE ([id number])[facility]ENTER[facility] (SBHLAB)[address] [place] [address] BAND NEUTROPHILS TOTAL PER COUNTED LEUKOCYTES BY MANUAL COUNT Normal [facility] Comment on above: Performed By: #### L TA2510, [id number] ####Auger Operator: UNA ARCE ([phone])[facility] (SBHLAB)[address] BASOPHILS (10*3/UL) IN BLOOD-CELLAVISION 0.4 10*3/uL High 0.0-0.2 [facility] Comment on above: Performed By: #### L QQ2704, [id number] ####Auger Operator: UNA ARCE ([phone])[facility] (SBHLAB)[address] [place] [address] [place] BASOPHILS TOTAL PER COUNTED LEUKOCYTES BY MANUAL COUNT 3 Normal [facility] Comment on above: Performed By: #### L GM4701, [id number] ####Auger Operator: UNA STAUFFERMELANIE ([phone])[facility] (SBHLAB)[address] [place] [address] [place] BASOPHILS/100 LEUKOCYTES IN BLOOD-CELLAVISION 3 % High 0-2 [facility] Comment on above: Performed By: #### L RO7806, [id number] ####Auger Operator: UNA ACRE ([phone])[facility] [place] (SBHLAB)[address] [place] [address] [place] BLASTS TOTAL PER COUNTED LEUKOCYTES BY MANUAL COUNT Normal [facility] Comment on above: Performed By: #### L YC0555, [id number] ####Auger Operator: UNA ARCE ([phone])[facility] [place] (SBHLAB)[address] [place] [address] [place] EOSINOPHILS (10*3/UL) IN BLOOD-CELLAVISION 0.2 10*3/uL Normal 0.0-0.5 [facility] Comment on above: Performed By: #### L KP1382, [id number] ####Auger Operator: UNA ARCE ([phone])[facility] [place] (SBHLAB)[address] [place] [address] [place] EOSINOPHILS TOTAL PER COUNTED LEUKOCYTES BY MANUAL COUNT 2 High 0-1 [facility] Comment on above: Performed By: #### L [id number], [id number] ####Auger Operator: UNA ARCE ([phone])[facility] [place] (SBHLAB)[address] [place] [address] [place] EOSINOPHILS/100 LEUKOCYTES IN BLOOD-CELLAVISION 2 % Normal 0-6 [facility] Comment on above: Performed By: #### L PC3128, [id number] ####Auger Operator: UNA ARCE ([phone])[facility] [place] (SBHLAB)[address] HYPOCHROMIA (PRESENCE) IN BLOOD BY LIGHT MICROSCOPY Moderate Abnormal (none) [facility] Comment on above: Performed By: #### L WQ5725, [id number] ####Auger Operator: UNA ARCE ([phone])[facility] [place] (SBHLAB)[address] [place] [address] [place] LYMPHOCYTES (10*3/UL) IN BLOOD-CELLAVISION 1.3 10*3/uL Normal 1.0-4.3 [facility] Comment on above: Performed By: #### L [id number], [id number] ####Auger Operator: UNA ARCE ([phone])[facility] [place] (SBHLAB)[address] LYMPHOCYTES TOTAL PER COUNTED LEUKOCYTES BY MANUAL COUNT 11 Normal [facility] Comment on above: Performed By: #### L II9494, [id number] ####Auger Operator: UNA ARCE ([id number])[facility] (SBHLAB)[address] [place] [address] [place] LYMPHOCYTES/100 LEUKOCYTES IN BLOOD-CELLAVISION 11 % Low 15-45 [facility] Comment on above: Performed By: #### L [id number], [id number] ####Auger Operator: UNA ARCE ([phone])[facility] (SBHLAB)[address] [place] [address] [place] METAMYELOCYTES TOTAL PER COUNTED LEUKOCYTES BY MANUAL COUNT Normal [facility] Comment on above: Performed By: #### L [id number], [id number] ####Auger Operator: UNA ARCE ([phone])[facility] [place] (SBHLAB)[address] [place] [address] [place] MONOCYTES (10*3/UL) IN BLOOD-CELLAVISION 0.8 10*3/uL Normal 0.0-0.9 [facility] Comment on above: Performed By: #### L [id number], [id number] ####Auger Operator: UNA ARCE ([id number])[facility] (SBHLAB)[address] [place] [address] [place] MONOCYTES TOTAL PER COUNTED LEUKOCYTES BY MANUAL COUNT 7 Normal [facility] Comment on above: Performed By: #### L [id number], [id number] ####Auger Operator: UNA ARCE ([phone])[facility] (SBHLAB)[address] [place] [address] [place] MONOCYTES/100 LEUKOCYTES IN BLOOD-LUCIANA 7 % Normal -13 [facility] Comment on above: Performed By: #### L OF1610, [id number] ####Auger Operator: UNA ARCE ([id number])[facility] [place] (SBHLAB)[address] [place] [address] [place] MYELOCYTES COUNTED BY MANUAL COUNT Normal [facility] Comment on above: Performed By: #### L EL1168, [id number] ####Auger Operator: UNA ARCE ([id number])[facility] (SBHLAB)[address] [place] [address] [place] NEUTROPHILS TOTAL PER COUNTED LEUKOCYTES BY MANUAL COUNT 77 Normal [facility] Comment on above: Performed By: #### L TR7593, [id number] ####Auger Operator: UNA ARCE ([phone])[facility] (SBHLAB)[address] [place] [address] [place] POIKILOCYTOSIS (PRESENCE) IN BLOOD BY LIGHT MICROSCOPY Moderate Abnormal (none) [facility] Comment on above: Performed By: #### L WM0575, [id number] ####Auger Operator: UNA ARCE ([phone])[facility] (SBHLAB)[address] [place] [address] [place] POLYCHROMASIA IN BLOOD BY LIGHT MICROSCOPY Slight Abnormal (none) [facility] Comment on above: Performed By: #### L AP1312, [id number] ####Auger Operator: UNA ARCE ([phone])[facility] (SBHLAB)[address] [place] [address] [place] PROMYELOCYTES TOTAL PER COUNTED LEUKOCYTES BY MANUAL COUNT Normal [facility] Comment on above: Performed By: #### L [id number], [id number] ####Auger Operator: UNA ARCE ([phone])[facility] (SBHLAB)[address] RBC MORPHOLOGY IN BLOOD abnormal Normal [facility] Comment on above: Performed By: #### L [id number], [id number] ####Auger Operator: UNA ARCE ([id number])[facility] [place] (SBHLAB)[address] SEGMENTED NEUTROPHILS (10*3/UL) IN BLOOD-CELLAVISION 9.2 10*3/uL High 1.8-7.5 [facility] Comment on above: Performed By: #### L [id number], [id number] ####Auger Operator: UNA ARCE ([id number])[facility] [place] (SBHLAB)[address] [place] [address] [place] SEGMENTED NEUTROPHILS/100 LEUKOCYTES-CE 77 % Normal 38-82 [facility] Comment on above: Performed By: #### L CF5496, [id number] ####Auger Operator: UNA ARCE ([phone])[facility] [place] (SBHLAB)[address] [place] [address] [place] STOMATOCYTES IN BLOOD BY LIGHT MICROSCOPY Moderate Abnormal (none) [facility] Comment on above: Performed By: #### L [id number], [id number] ####Auger Operator: UNA AREC ([phone])[facility] [place] (SBHLAB)[address] [place] [address] [place] TARGET CELLS IN BLOOD BY LIGHT MICROSCOPY Slight Abnormal (none) [facility] Comment on above: Performed By: #### L NQ4525, [id number] ####Auger Operator: UNA ARCE ([phone])[facility] [place] (SBHLAB)[address] [place] [address] [place] UNCLASSIFIED CELLS TOTAL PER COUNTED LEUKOCYTES BY MANUAL COUNT Normal [facility] Comment on above: Performed By: #### L GM3502, [id number] ####Auger Operator: UNA ARCE ([phone])[facility] (SBHLAB)[address] VARIANT LYMPHOCYTES TOTAL PER COUNTED LEUKOCYTES BY MANUAL COUNT Normal [facility] Comment on above: Performed By: #### L KW5516, [id number] ####Auger Operator: UNA ARCE ([phone])[facility] (SBHLAB)[address] Magnesium [Mass/Vol]on 04-17 Interpretation and review of laboratory results Normal [facility] No Panel Informationon 04-17 [facility] E[facility] Manual 2 High 0 - 1 [facility] Interpretation and review of laboratory results Abnormal [facility] Lymphocytes Manual 11 [facility] Monocytes Manual 7 [facility] Neutrophils Manual 77 [facility] Nursing Noteon 04-17-2025 Nursing Note Report given to Flor MYERS at [facility]. All belongings sent with patient, including eyewear. HL removed, site WNL. Normal [facility] Progress Noteon 04-17-2025 Progress Note Normal [facility] Progress Note Normal [facility] [id number] 04-16-2025 [id number] Tasked weekend TTC t o follow for possible dc over the weekend. rollout manager to follow and assist as needed. Normal [facility] [id number] Complete in HEN S for [facility] per TCC request [facility] [phone] Normal [facility] CBC W Auto Differential pane l (Bld)Ordered By: Dayan Hernandez on 04-16-2025 Erythrocyte distribution width (RBC) [Ratio] 25.7 % High 11.5 - 15.0 % [facility] Hematocrit (Bld) [Volume fraction] 28.4 % Low 40.0 - 52.0 % [facility] Hemoglobin (Bld) [Mass/Vol] 8 g/dL Low 13.0 - 18.0 g/dL [facility] Interpretation and review of laboratory results Abnormal [facility] MCH (RBC) [Entitic mass] 23.7 pg Low 26. 0 - 34.0 pg [facility] MCHC (RBC) [Mass/Vol] 28.2 % Low 30.5 - 36.0 % [facility] MCV (RBC) [Entitic vol] 84.3 fL 77.0 - 99.0 fL [facility] Platelet mean volume (Bld) [Entitic vol] 9.1 fL 9.0 - 12.7 fL [facility] Platelets (Bld) [#/Vol] 405 10*3/uL 140 - 440 10*3/uL [facility] RBC (Bld) [#/Vol] 3.37 10*6/uL Low 4.40 - 5.9 0 10*6/uL [facility] WBC (Bld) [#/Vol] 13.1 10*3/uL High 3.6 - 10.7 10*3/uL [facility] CBC WITH AUTO DIFFERENTIALon 04-16-2025 Erythrocyte distribution width (RBC) [Ratio] 25.7 % High 11.5-15.0 [facility] Comment on above: Performed By: #### L [id number], [id number] ####Auger Operator: UNA [phone])[facility] ([facility])[address] [place] [address] Hematocrit (Bld) [Volume fraction] 28.4 % Low 40.0-52.0 [facility] Comment on above: Performed By: #### L RY2430, [id number] ####Auger Operator: UNA ARCE ([phone])[facility] ([facility])[address] [place] [address] Hemoglobin (Bld) [Mass/Vol] 8.0 g/dL Low 13.0-18.0 [facility] Comment on above: Performed By: #### L [id number], [id number] ####Auger Operator: UNA ARCE ([phone])[facility]ENTERAngel [facility] (SBHLAB)[address] MCH (RBC) [Entitic mass] 23.7 pg Low 26.0-34.0 [facility] Comment on above: Performed By: #### L [id number], [id number] ####Auger Operator: UNA ARCE ([phone])[facility]ENTER[facility] (SBHLAB)[address] MCHC 28.2 % Low 30.5-36.0 [facility] Comment on above: Performed By: #### L NY9097, [id number] ####Auger Operator: UNA STAUFFERMELANIE ([phone])[facility] (SBHLAB)[address] [place] [address] MCV (RBC) [Entitic vol] 84.3 fL Normal 77.0-99.0 [facility] Comment on above: Performed By: #### L [id number], [id number] ####Auger Operator: UNA ARCE ([id number])[facility] (SBHLAB)[address] Platelet mean volume (Bld) [Entitic vol] 9.1 fL Normal 9.0-12.7 [facility] Comment on above: Performed By: #### L [id number], [id number] ####Auger Operator: UNA ARCE ([id number])[facility] (SBHLAB)[address] Platelets (Bld) [#/Vol] 405 10*3/uL Normal 140-440 [facility] Comment on above: Performed By: #### L [id number], [id number] ####Auger Operator: UNA STAUFFERMELANIE ([phone])[facility] (SBHLAB)[address] RBC (Bld) [#/Vol] 3.37 10*6/uL Low 4.40-5.90 [facility] Comment on above: Performed By: #### L AD3317, [id number] ####Auger Operator: UNA ARCE ([id number])[facility] [place] (SBHLAB)[address] WBC (Bld) [#/Vol] 13.1 10*3/uL High 3.6-10.7 [facility] Comment on above: Performed By: #### L HQ2399, [id number] ####Auger Operator: UNA ARCE ([phone])[facility] (SBHLAB)[address] COMPREHENSIVE METABOLIC PANE Anant 04-16-2025 Albumin [Mass/Vol] 2.2 g/dL Low 3.4-4.8 [facility] Comment on above: Performed By: #### L [id number], [id number] ####Auger Operator: UNA ARCE ([id number])[facility] [place] (SBHLAB)[address] ALP [Catalytic activity/Vol] 55 U/L Normal 40-150 [facility] Comment on above: Performed By: #### L [id number], [id number] ####Auger Operator: UNA ARCE ([id number])[facility] [place] (SBHLAB)[address] ALT [Catalytic activity/Vol] 6 U/L Normal <40 [facility] Comment on above: Performed By: #### L [id number], [id number] ####Auger Operator: UNA ARCE ([id number])[facility] [place] (SBHLAB)[address] Anion gap [Moles/Vol] 10 mmol/L Normal 3-13 [facility] Comment on above: Performed By: #### L [id number], [id number] ####Auger Operator: UNA ARCE ([phone])[facility] (SB[facility])[address] [place] [address] [place] AST [Catalytic activity/Vol] 23 U/L Normal <34 [facility] Comment on above: Performed By: #### L AB103, LAB17 ####Auger Operator: UNA ARCE ([phone])[facility] [place] (SBHLAB)[address] Bilirubin [Mass/Vol] 0.5 mg/dL Normal <1.2 [facility] Comment on above: Performed By: #### L AB103, LAB17 ####Auger Operator: UNA ARCE ([phone])[facility] [place] (SBHLAB)[address] Calcium [Mass/Vol] 8.2 mg/dL Low 8.8-10.0 [facility] Comment on above: Performed By: #### L AB103, LAB17 ####Auger Operator: UNA ARCE ([phone])[facility] [place] (SBHLAB)[address] [place] [address] [place] Chloride [Moles/Vol] 87 mmol/L Low 98-107 [facility] Comment on above: Performed By: #### L AB103, LAB17 ####Auger Operator: UNA ARCE ([phone])[facility] [place] (SBHLAB)[address] [place] [address] [place] CO2 [Moles/Vol] 43 mmol/L High 23-31 [facility] Comment on above: Performed By: #### L AB103, LAB17 ####Auger Operator: UNA ARCE ([phone])[facility] [place] (SBHLAB)[address] [place] [address] [place] Creatinine [Mass/Vol] 1.81 mg/dL High 0.72-1.25 [facility] Comment on above: Performed By: #### L AB103, LAB17 ####Auger Operator: UNA ARCE ([phone])[facility] [place] (SBHLAB)[address] [place] [address] [place] GLOMERULAR FILTRATION RATE ML/MIN/1.73 SQ M.PREDICTED 35.3 mL/min/1.73m*2 Low >60.0 [facility] Comment on above: Result Comment: Calc ulation based on the Chronic Kidney Disease Epidemiology Collaboration (CKD-EPI) equation refit without adjustment for race Performed By: #### L AB103, LAB17 ####Auger Operator: UNA ARCE ([phone])[facility] (SBHLAB)[address] Glucose [Mass/Vol] 114 mg/dL Normal 82-115 [facility] Comment on above: Performed By: #### L AB103, LAB17 ####Auger Operator: UNA ARCE ([phone])[facility] (SBHLAB)[address] Potassium [Moles/Vol] 3.6 mmol/L Normal 3.5-5.1 [facility] Comment on above: Result Comment: [facility] potassium values may be up to 0.5 mmol/L lower than serum values. Performed By: #### L AB103, LAB17 ####Auger Operator: UNA ARCE ([phone])[facility] (SBHLAB)[address] Protein [Mass/Vol] 6.0 g/dL Low 6.4-8.3 [facility] Comment on above: Performed By: #### L AB103, LAB17 ####Auger Operator: UNA ARCE ([phone])[facility] (SBHLAB)[address] [place] [address] [place] Sodium [Moles/Vol] 140 mmol/L Normal 136-145 [facility] Comment on above: Performed By: #### L AB103, LAB17 ####Auger Operator: UNA ARCE ([phone])[facility] (SBHLAB)[address] Urea nitrogen [Mass/Vol] 46 mg/dL High 9-23 [facility] Comment on above: Performed By: #### L AB103, LAB17 ####Auger Operator: UNA ARCE ([phone])[facility] (SBHLAB)[address] [place] [address] Comprehensive metabolic 1998 panelon 04-16-2025 Albumin [Mass/Vol] 2.2 g/dL Low 3.4 - 4.8 g/dL [facility] ALP [Catalytic activity/Vol] 55 U/L 40 - 150 U/L [facility] ALT [Catalytic activity/Vol] 6 U/L NINF - 40 U/L [facility] Anion gap [Moles/Vol] 10 mmol/L 3 - 13 mmol/L [facility] AST [Catalytic activity/Vol] 23 U/L NINF - 34 U/L [facility] Bilirubin [Mass/Vol] 0.5 mg/dL NINF - 1.2 mg/dL [facility] Calcium [Mass/Vol] 8.2 mg/dL Low 8.8 - 10. 0 mg/dL [facility] Chloride [Moles/Vol] 87 mmol/L Low 98 - 10 7 mmol/L [facility] CO2 [Moles/Vol] 43 mmol/L High 23 - 31 mmol/L [facility] Creatinine [Mass/Vol] 1.81 mg/dL High 0.72 - 1.25 mg/dL [facility] GFR/1.73 sq M.predicted (S/P/Bld) [Vol rate/Area] 35.3 mL/min Low - PINF [facility] Glucose [Mass/Vol] 114 mg/dL 82 - 115 mg/dL [facility] Interpretation and review of laboratory results Abnormal [facility] Potassium [Moles/Vol] 3.6 mmol/L 3.5 - 5.1 mmol/L [facility] Protein [Mass/Vol] 6 g/dL Low 6.4 - 8.3 g/dL [facility] Sodium [Moles/Vol] 140 mmol/L 136 - 145 mmol/L [facility] Urea nitrogen [Mass/Vol] 46 mg/dL High 9 - 23 mg/d L [facility] Laboratory - Chemistry and C hemistry - challengeon 04-16-2025 Magnesium [Mass/Vol] 1.8 mg/dL 1.6 - 2 .6 mg/dL [facility] Laboratory - Hematology and Cell countson 04-16-2025 Anisocytosis Ql (Bld) Moderate Abnormal (none) [facility] Basophils (Bld) [#/Vol] 0.1 10*3/uL 0.0 - 0.2 10*3/uL [facility] Basophils/100 WBC (Bld) 1 % 0 - 2 % S [facility] Kincaid cells LM Ql (Bld) Slight Abnormal (none) [facility] Eosinophils (Bld) [#/Vol] 0.5 10*3/uL 0.0 - 0.5 10*3/uL [facility] Eosinophils/100 WBC (Bld) 4 % 0 - 6 % [facility] Hypochromia Ql (Bld) Slight Abnormal (none) [facility] Lymphocytes (Bld) [#/Vol] 1.6 10*3/uL 1.0 - 4.3 10*3/uL [facility] Lymphocytes/100 WBC (Bld) 12 % Low 15 - 45 % [facility] Monocytes (Bld) [#/Vol] 0.9 10*3/uL 0.0 - 0.9 10*3/uL [facility] Monocytes/100 WBC (Bld) 7 % 5 - 13 % S [facility] Neutrophils (Bld) [#/Vol] 9.8 10*3/uL High 1.8 - 7.5 10*3/uL [facility] Poikilocytosis LM Ql (Bld) Slight Abnormal (none) [facility] RBC morphology finding Nom (Bld) abnormal [facility] Segmented neutrophils/100 WBC (Bld) 75 % 38 - 82 % [facility] Variant lymphocytes (Bld) [#/Vol] 0.3 10*3/uL High NINF - 0.0 10*3/uL [facility] Variant lymphocytes/100 WBC (Bld) 2 % High NINF - 0 % [facility] MAGNESIUMon 04-16-2025 Magnesium [Mass/Vol] 1.8 mg/dL Normal 1.6-2.6 [facility] Comment on above: Result Comment: YARELI [place] COMMENTS:Higher values can be expected in females during menses. Performed By: #### L AB103, LAB17 ####Auger Operator: UNA ARCE ([phone])[facility] (SBHLAB)[address] [place] [address] MANUAL DIFFERENTIAL (CELLAVI BANDAR)on 04-16-2025 ANISOCYTOSIS PRESENCE IN BLOOD BY LIGHT MICROSCOPY Moderate Abnormal (none) [facility] Comment on above: Performed By: #### L [id number], [id number] ####Auger Operator: UNA ARCE ([phone])[facility] [place] (SBHLAB)[address] [place] [address] [place] BAND NEUTROPHILS TOTAL PER COUNTED LEUKOCYTES BY MANUAL COUNT Normal [facility] Comment on above: Performed By: #### L [id number], [id number] ####Auger Operator: UNA STAUFFERMELANIE ([phone])[facility] [place] (SBHLAB)[address] [place] [address] [place] BASOPHILS (10*3/UL) IN BLOOD-CELLAVISION 0.1 10*3/uL Normal 0.0-0.2 [facility] Comment on above: Performed By: #### L [id number], [id number] ####Auger Operator: UNA ARCE ([phone])[facility] [place] (SBHLAB)[address] [place] [address] [place] BASOPHILS TOTAL PER COUNTED LEUKOCYTES BY MANUAL COUNT 1 Normal [facility] Comment on above: Performed By: #### L [id number], [id number] ####Auger Operator: UNA ARCE ([phone])[facility] [place] (SBHLAB)[address] [place] [address] [place] BASOPHILS/100 LEUKOCYTES IN BLOOD-CELLAVISION 1 % Normal 0-2 [facility] Comment on above: Performed By: #### L [id number], [id number] ####Auger Operator: UNA ARCE ([phone])[facility] [place] (SBHLAB)[address] [place] [address] [place] BLASTS TOTAL PER COUNTED LEUKOCYTES BY MANUAL COUNT Normal [facility] Comment on above: Performed By: #### L [id number], [id number] ####Auger Operator: UNA ARCE ([phone])[facility] [place] (SBHLAB)[address] [place] [address] [place] MEENA CELLS PRESENCE IN BLOOD BY LIGHT MICROSCOPY Slight Abnormal (none) [facility] Comment on above: Performed By: #### L [id number], [id number] ####Auger Operator: UNA ARCE ([phone])[facility] [place] (SBHLAB)[address] [place] [address] [place] EOSINOPHILS (10*3/UL) IN BLOOD-CELLAVISION 0.5 10*3/uL Normal 0.0-0.5 [facility] Comment on above: Performed By: #### L [id number], [id number] ####Auger Operator: UNA ARCE ([phone])[facility] [place] (SBHLAB)[address] [place] [address] [place] EOSINOPHILS TOTAL PER COUNTED LEUKOCYTES BY MANUAL COUNT 4 High 0-1 [facility] Comment on above: Performed By: #### L [id number], [id number] ####Auger Operator: UNA ARCE ([phone])[facility] [place] (SBHLAB)[address] [place] [address] [place] EOSINOPHILS/100 LEUKOCYTES IN BLOOD-CELLAVISION 4 % Normal 0-6 [facility] Comment on above: Performed By: #### L [id number], [id number] ####Auger Operator: UNA ARCE ([phone])[facility] [place] (SBHLAB)[address] [place] [address] [place] HYPOCHROMIA (PRESENCE) IN BLOOD BY LIGHT MICROSCOPY Slight Abnormal (none) [facility] Comment on above: Performed By: #### L [id number], [id number] ####Auger Operator: UNA ARCE ([phone])[facility] [place] (SBHLAB)[address] [place] [address] [place] LYMPHOCYTE VARIANT/100 LEUKOCYTES IN BLOOD- CELLAVISION 2 % High <=0 [facility] Comment on above: Performed By: #### L [id number], [id number] ####Auger Operator: UNA ARCE ([phone])[facility] [place] (SBHLAB)[address] [place] [address] [place] LYMPHOCYTES (10*3/UL) IN BLOOD-CELLAVISION 1.6 10*3/uL Normal 1.0-4.3 [facility] Comment on above: Performed By: #### L [id number], [id number] ####Auger Operator: UAN ARCE ([id number])[facility] [place] (SBHLAB)[address] LYMPHOCYTES TOTAL PER COUNTED LEUKOCYTES BY MANUAL COUNT 12 Normal [facility] Comment on above: Performed By: #### L [id number], [id number] ####Auger Operator: UNA MOHRCER ([id number])[facility] [place] (SBHLAB)[address] [place] [address] [place] LYMPHOCYTES/100 LEUKOCYTES IN BLOOD-CELLAVISION 12 % Low 15-45 [facility] Comment on above: Performed By: #### L [id number], [id number] ####Auger Operator: UNA ARCE ([phone])[facility] [place] (SBHLAB)[address] METAMYELOCYTES TOTAL PER COUNTED LEUKOCYTES BY MANUAL COUNT [facility] Comment on above: Performed By: #### L [id number], [id number] ####Auger Operator: UNA ARCE ([phone])[facility] [place] (SBHLAB)[address] [place] [address] [place] MONOCYTES (10*3/UL) IN BLOOD-CELLAVISION 0.9 10*3/uL Normal 0.0-0.9 [facility] Comment on above: Performed By: #### L [id number], [id number] ####Auger Operator: UNA ARCE ([phone])[facility] [place] (SBHLAB)[address] [place] [address] [place] MONOCYTES TOTAL PER COUNTED LEUKOCYTES BY MANUAL COUNT 7 Normal [facility] Comment on above: Performed By: #### L [id number], [id number] ####Auger Operator: UNA ARCE ([phone])[facility] [place] (SBHLAB)[address] [place] [address] [place] MONOCYTES/100 LEUKOCYTES IN BLOOD-LUCIANA 7 % Normal 5-13 [facility] Comment on above: Performed By: #### L [id number], [id number] ####Auger Operator: UNA ARCE ([phone])[facility] [place] (SBHLAB)[address] [place] [address] [place] MYELOCYTES COUNTED BY MANUAL COUNT Normal [facility] Comment on above: Performed By: #### L [id number], [id number] ####Auger Operator: UNA ARCE ([phone])[facility] [place] (SBHLAB)[address] [place] [address] [place] NEUTROPHILS TOTAL PER COUNTED LEUKOCYTES BY MANUAL COUNT 77 Normal [facility] Comment on above: Performed By: #### L [id number], [id number] ####Auger Operator: UNA ARCE ([phone])[facility] [place] (SBHLAB)[address] [place] [address] [place] POIKILOCYTOSIS (PRESENCE) IN BLOOD BY LIGHT MICROSCOPY Slight Abnormal (none) [facility] Comment on above: Performed By: #### L [id number], [id number] ####Auger Operator: UNA ARCE ([phone])[facility] [place] (SBHLAB)[address] [place] [address] [place] PROMYELOCYTES TOTAL PER COUNTED LEUKOCYTES BY MANUAL COUNT Normal [facility] Comment on above: Performed By: #### L [id number], [id number] ####Auger Operator: UNA ARCE ([phone])[facility] [place] (SBHLAB)[address] [place] [address] [place] RBC MORPHOLOGY IN BLOOD abnormal Normal S [facility] Comment on above: Performed By: #### L [id number], [id number] ####Auger Operator: UNA ARCE ([phone])[facility] [place] (SBHLAB)[address] [place] [address] [place] SEGMENTED NEUTROPHILS (10*3/UL) IN BLOOD-CELLAVISION 9.8 10*3/uL High 1.8-7.5 [facility] Comment on above: Performed By: #### L [id number], [id number] ####Auger Operator: UNA ARCE ([id number])[facility] [place] (SBHLAB)[address] SEGMENTED NEUTROPHILS/100 LEUKOCYTES-CE 75 % Normal 38-82 [facility] Comment on above: Performed By: #### L [id number], [id number] ####Auger Operator: UNA ARCE ([phone])[facility] [place] (SBHLAB)[address] UNCLASSIFIED CELLS TOTAL PER COUNTED LEUKOCYTES BY MANUAL COUNT Normal [facility] Comment on above: Performed By: #### L [id number], [id number] ####Auger Operator: UNA ARCE ([phone])[facility] ([facility])[address] VARIANT LYMPHOCYTES (10*3/UL) IN BLOOD-CELLAVISION 0.3 10*3/uL High <=0.0 [facility] Comment on above: Performed By: #### L [id number], [id number] ####Auger Operator: UNA ARCE ([phone])[facility] [place] (SBHLAB)[address] VARIANT LYMPHOCYTES TOTAL PER COUNTED LEUKOCYTES BY MANUAL COUNT 2 Normal [facility] Comment on above: Performed By: #### L [id number], [id number] ####Auger Operator: UNA ARCE ([phone])[facility] [place] (SBHLAB)[address] [place] [address] [place] Magnesium [Mass/Vol]on 04-16 Interpretation and review of laboratory results Normal [facility] No Panel Informationon 04-16 [facility] Atypical Lymphocytes Manual 2 [facility] [employer] Basophils Manual 1 [facility] Eosinophils Manual 4 High 0 - 1 [facility] Interpretation and review of laboratory results Abnormal [facility] [employer] Lymphocytes Manual 12 [facility] Monocytes Manual 7 [facility] alth Neutrophils Manual 77 [facility] Nursing Noteon 04-16-2025 Nursing Note Normal [facility] Progress Noteon 04-16-2025 Progress Note [facility] Progress [facility] Progress [facility] Normal [facility] Progress Note Normal [facility] [id number] 04-15-2025 [id number] Normal [facility] Bacteria identified Anaer cx Nom (Unsp spec)on 04-15-2025 Interpretation and review of laboratory results Normal [facility] CBC W Auto Differential pane l (Bld)on 04-15-2025 Erythrocyte distribution width (RBC) [Ratio] 25.3 % High 11.5 - 15.0 % [facility] Hematocrit (Bld) [Volume fraction] 28 % Low 40.0 - 52.0 % [facility] Hemoglobin (Bld) [Mass/Vol] 7.8 g/dL Low 13.0 - 18.0 g/dL [facility] Interpretation and review of laboratory results Abnormal [facility] MCH (RBC) [Entitic mass] 23.4 pg Low 26. 0 - 34.0 pg [facility] MCHC (RBC) [Mass/Vol] 27.9 % Low 30.5 - 36.0 % [facility] MCV (RBC) [Entitic vol] 84.1 fL 77.0 - 99.0 fL [facility] Platelet mean volume (Bld) [Entitic vol] 9.1 fL 9.0 - 12.7 fL [facility] Platelets (Bld) [#/Vol] 332 10*3/uL 140 - 440 10*3/uL [facility] RBC (Bld) [#/Vol] 3.33 10*6/uL Low 4.40 - 5.9 0 10*6/uL [facility] WBC (Bld) [#/Vol] 12.4 10*3/uL High 3.6 - 10.7 10*3/uL [facility] CBC WITH AUTO DIFFERENTIALon 04-15-2025 Erythrocyte distribution width (RBC) [Ratio] 25.3 % High 11.5-15.0 [facility] Comment on above: Performed By: #### L [id number], [id number] ####Auger Operator: UNA STAUFFERMELANIE ([phone])[facility] [place] (SBHLAB)[address] Hematocrit (Bld) [Volume fraction] 28.0 % Low 40.0-52.0 [facility] Comment on above: Performed By: #### L [id number], [id number] ####Auger Operator: UNA ARCE ([phone])[facility] ([facility])[address] Hemoglobin (Bld) [Mass/Vol] 7.8 g/dL Low 13.0-18.0 [facility] Comment on above: Performed By: #### L [id number], [id number] ####Auger Operator: UNA STAUFFERMELANIE ([phone])[facility]ENTERAngel [facility] (SBHLAB)[address] MCH (RBC) [Entitic mass] 23.4 pg Low 26.0-34.0 [facility] Comment on above: Performed By: #### L [id number], [id number] ####Auger Operator: UNA ARCE ([phone])[facility] (SB[facility])[address] MCHC 27.9 % Low 30.5-36.0 [facility] Comment on above: Performed By: #### L [id number], [id number] ####Auger Operator: UNA ARCE ([phone])[facility] (SB[facility])[address] MCV (RBC) [Entitic vol] 84.1 fL Normal 77.0-99.0 S [facility] Comment on above: Performed By: #### L [id number], [id number] ####Auger Operator: UNA ARCE ([phone])[facility]ENTERAngel [place] (SBHLAB)[address] Platelet mean volume (Bld) [Entitic vol] 9.1 fL Normal 9.0-12.7 [facility] Comment on above: Performed By: #### L [id number], [id number] ####Auger Operator: UNA ARCE ([phone])[facility] (SBHL[facility])[address] Platelets (Bld) [#/Vol] 332 10*3/uL Normal 140-440 [facility] Comment on above: Performed By: #### L [id number], [id number] ####Auger Operator: UNA ARCE ([id number])[facility] [place] (SBHLAB)[address] RBC (Bld) [#/Vol] 3.33 10*6/uL Low 4.40-5.90 [facility] Comment on above: Performed By: #### L [id number], [id number] ####Auger Operator: UNA ARCE ([phone])[facility] (SBHLAB)[address] WBC (Bld) [#/Vol] 12.4 10*3/uL High 3.6-10.7 [facility] Comment on above: Performed By: #### L [id number], [id number] ####Auger Operator: UNA ARCE ([phone])[facility] (SBHLAB)[address] COMPREHENSIVE METABOLIC PANE Anant 04-15-2025 Albumin [Mass/Vol] 2.1 g/dL Low 3.4-4.8 [facility] Comment on above: Performed By: #### L AB17, [id number] ####Auger Operator: UNA ARCE ([phone])[facility] ([facility])[address] ALP [Catalytic activity/Vol] 48 U/L Normal 40-150 [facility] Comment on above: Performed By: #### L AB17, [id number] ####Auger Operator: UNA [phone])[facility] [place] (SBHLAB)[address] ALT [Catalytic activity/Vol] U/L Normal <40 [facility] Comment on above: Performed By: #### L AB17, [id number] ####Auger Operator: UNA ARCE ([phone])[facility] [place] (SBHLAB)[address] Anion gap [Moles/Vol] 9 mmol/L Normal 3-13 [facility] Comment on above: Performed By: #### L AB17, [id number] ####Auger Operator: UNA ARCE ([phone])[facility] [place] (SBHLAB)[address] AST [Catalytic activity/Vol] 21 U/L Normal <34 [facility] Comment on above: Performed By: #### L AB17, [id number] ####Auger Operator: UNA ARCE ([phone])[facility] [place] (SBHLAB)[address] Bilirubin [Mass/Vol] 0.6 mg/dL Normal <1.2 [facility] Comment on above: Performed By: #### L AB17, [id number] ####Auger Operator: NUA ARCE ([id number])[facility] [place] (SBHLAB)[address] Calcium [Mass/Vol] 8.2 mg/dL Low 8.8-10.0 [facility] Comment on above: Performed By: #### L AB17, [id number] ####Auger Operator: UNA ARCE ([phone])[facility] [place] (SBHLAB)[address] [place] [address] [place] Chloride [Moles/Vol] 90 mmol/L Low 98-107 [facility] Comment on above: Performed By: #### L AB17, [id number] ####Auger Operator: UNA ARCE ([phone])[facility] [place] (SBHLAB)[address] CO2 [Moles/Vol] 40 mmol/L High 23-31 [facility] Comment on above: Performed By: #### L AB17, [id number] ####Auger Operator: UNA ARCE ([phone])[facility]ENTERAngel [place] (SBHLAB)[address] Creatinine [Mass/Vol] 1.58 mg/dL High 0.72-1.25 [facility] Comment on above: Performed By: #### L AB17, [id number] ####Auger Operator: UNA ARCE ([phone])[facility] (SBHL[facility])[address] GLOMERULAR FILTRATION RATE ML/MIN/1.73 SQ M.PREDICTED 41.6 mL/min/1.73m*2 Low >60.0 [facility] Comment on above: Result Comment: Calc ulation based on the Chronic Kidney Disease Epidemiology Collaboration (CKD-EPI) equation refit without adjustment for race Performed By: #### L AB17, [id number] ####Auger Operator: UNA ARCE ([phone])[facility] (SB[facility])[address] Glucose [Mass/Vol] 130 mg/dL High 82-115 [facility] Comment on above: Performed By: #### L AB17, [id number] ####Auger Operator: UNA ARCE ([id number])[facility] (SB[facility])[address] Potassium [Moles/Vol] 3.5 mmol/L Normal 3.5-5.1 [facility] Comment on above: Result Comment: [facility] potassium values may be up to 0.5 mmol/L lower than serum values. Performed By: #### L AB17, [id number] ####Auger Operator: UNA ARCE ([phone])[facility]ENTERAngel [facility] (SBHL[facility])[address] Protein [Mass/Vol] 5.7 g/dL Low 6.4-8.3 [facility] Comment on above: Performed By: #### L AB17, [id number] ####Auger Operator: UNA BERMUDEZSILASMELANIE ([phone])[facility] (SBHLAB)[address] Sodium [Moles/Vol] 139 mmol/L Normal 136-145 [facility] Comment on above: Performed By: #### L AB17, [id number] ####Auger Operator: UNA BERMUDEZPEDRO ([phone])[facility] (SBHLAB)[address] Urea nitrogen [Mass/Vol] 43 mg/dL High 9-23 [facility] Comment on above: Performed By: #### L AB17, [id number] ####Auger Operator: UNAANJEL BERMUDEZPEDRO ([phone])[facility] ([facility])[address] Comprehensive metabolic 1998 panelon 04-15-2025 Albumin [Mass/Vol] 2.1 g/dL Low 3.4 - 4.8 g/dL [facility] ALP [Catalytic activity/Vol] 48 U/L 40 - 150 U/L [facility] ALT [Catalytic activity/Vol] U/[facility]L [facility] Anion gap [Moles/Vol] 9 mmol/L 3 - 13 mmol/L [facility] [facility] AST [Catalytic activity/Vol] 21 U[facility]L [facility]L [facility] Bilirubin [Mass/Vol] 0.6 mg/dL NINF - 1.2 mg/dL [facility] Calcium [Mass/Vol] 8.2 mg/dL Low 8.8 - 10. 0 mg/dL [facility] Chloride [Moles/Vol] 90 mmol/L Low 98 - 10 7 mmol/L [facility] CO2 [Moles/Vol] 40 mmol/L High 23 - 31 mmol/L [facility] Creatinine [Mass/Vol] 1.58 mg/dL High 0.72 - 1.25 mg/dL [facility] GFR/1.73 sq M.predicted (S/P/Bld) [Vol rate/Area] 41.6 mL/min Low - PINF [facility] Glucose [Mass/Vol] 130 mg/dL High 82 - 115 mg/dL [facility] Interpretation and review of laboratory results Abnormal [facility] Potassium [Moles/Vol] 3.5 mmol/L 3.5 - 5.1 mmol/L [facility] Protein [Mass/Vol] 5.7 g/dL Low 6.4 - 8.3 g/dL [facility] Sodium [Moles/Vol] 139 mmol/L 136 - 145 mmol/L [facility] Urea nitrogen [Mass/Vol] 43 mg/dL High 9 - 23 mg/d L [facility] Laboratory - Chemistry and C hemistry - challengeon 04-15-2025 Magnesium [Mass/Vol] 1.8 mg/dL 1.6 - 2 .6 mg/dL [facility] Laboratory - Hematology and Cell countson 04-15-2025 Anisocytosis Ql (Bld) Moderate Abnormal (none) [facility] Basophils (Bld) [#/Vol] 0.2 10*3/uL 0.0 - 0.2 10*3/uL [facility] Basophils/100 WBC (Bld) 2 % 0 - 2 % [facility] Eosinophils (Bld) [#/Vol] 0.1 10*3/uL 0.0 - 0.5 10*3/uL [facility] Eosinophils/100 WBC (Bld) 1 % 0 - 6 % [facility] Hypochromia Ql (Bld) Moderate Abnormal (none) [facility] Lymphocytes (Bld) [#/Vol] 1.2 10*3/uL 1.0 - 4.3 10*3/uL [facility] Lymphocytes/100 WBC (Bld) 10 % Low 15 - 45 % [facility] Monocytes (Bld) [#/Vol] 1.6 10*3/uL High 0.0 - 0.9 10*3/uL [facility] Monocytes/100 WBC (Bld) 13 % 5 - 13 % [facility] Neutrophils (Bld) [#/Vol] 9.3 10*3/uL High 1.8 - 7.5 10*3/uL [facility] Poikilocytosis LM Ql (Bld) Slight Abnormal (none) [facility] RBC morphology finding Nom (Bld) abnormal [facility] Segmented neutrophils/100 WBC (Bld) 75 % 38 - 82 % [facility] Stomatocytes LM Ql (Bld) Slight Abnormal (none) [facility] Laboratory - Microbiology an d Antimicrobial susceptibilityon 04-15-2025 Bacteria identified Anaer cx Nom (Unsp spec) No growth at 5 days [facility] Lower GI hemoglobin spec 1 I A Ql (Stl)Ordered By: Haroldo Alvarez on 04-15-2025 Fecal occult blood Negative Negative [facility] Interpretation and review of laboratory results Normal [facility] MAGNESIUMon 04-15-2025 Magnesium [Mass/Vol] 1.8 mg/dL Normal 1.6-2.6 [facility] Comment on above: Result Comment: YARELI R COMMENTS:Higher values can be expected in females during menses. Performed By: #### L [id number], [id number] ####Auger Operator: UNA ARCE ([phone])[facility] CENTERAngel [facility] ([facility])[address] [place] [address] MANUAL DIFFERENTIAL (CELLAVI BANDAR)on 04-15-2025 ANISOCYTOSIS PRESENCE IN BLOOD BY LIGHT MICROSCOPY Moderate Abnormal (none) [facility] Comment on above: Performed By: #### L [id number], [id number] ####Auger Operator: UNA ARCE ([phone])[facility]ENTERAngel [facility] ([facility])[address] BAND NEUTROPHILS TOTAL PER COUNTED LEUKOCYTES BY MANUAL COUNT Normal [facility] Comment on above: Performed By: #### L [id number], [id number] ####Auger Operator: UNA ARCE ([phone])[facility] CENTERAngel [facility]ENTERMarisol (SBHLAB)[address] BASOPHILS (10*3/UL) IN BLOOD-CELLAVISION 0.2 10*3/uL Normal 0.0-0.2 [facility] Comment on above: Performed By: #### L [id number], [id number] ####Auger Operator: UNA ARCE ([phone])[facility] (SBHLAB)[address] BASOPHILS TOTAL PER COUNTED LEUKOCYTES BY MANUAL COUNT 2 Normal [facility] Comment on above: Performed By: #### L [id number], [id number] ####Auger Operator: UNA ARCE ([phone])[facility]ENTERA [place] (SBHLAB)[address] [place] [address] [place] BASOPHILS/100 LEUKOCYTES IN BLOOD-CELLAVISION 2 % Normal 0-2 [facility] Comment on above: Performed By: #### L [id number], [id number] ####Auger Operator: UNA ARCE ([phone])[facility]ENTER[facility] [place] (SBHLAB)[address] [place] [address] [place] BLASTS TOTAL PER COUNTED LEUKOCYTES BY MANUAL COUNT Normal [facility] Comment on above: Performed By: #### L [id number], [id number] ####Auger Operator: UNA STAUFFERMELANIE ([phone])[facility]ENTER[facility] [place] (SBHLAB)[address] [place] [address] [place] EOSINOPHILS (10*3/UL) IN BLOOD-CELLAVISION 0.1 10*3/uL Normal 0.0-0.5 [facility] Comment on above: Performed By: #### L [id number], [id number] ####Auger Operator: UNA ARCE ([phone])[facility] [place] (SBHLAB)[address] [place] [address] [place] EOSINOPHILS TOTAL PER COUNTED LEUKOCYTES BY MANUAL COUNT 1 Normal 0-1 [facility] Comment on above: Performed By: #### L [id number], [id number] ####Auger Operator: UNA ARCE ([phone])[facility] [place] (SBHLAB)[address] [place] [address] [place] EOSINOPHILS/100 LEUKOCYTES IN BLOOD-CELLAVISION 1 % Normal 0-6 [facility] Comment on above: Performed By: #### L [id number], [id number] ####Auger Operator: UNA ARCE ([phone])[facility] [place] (SBHLAB)[address] [place] [address] [place] HYPOCHROMIA (PRESENCE) IN BLOOD BY LIGHT MICROSCOPY Moderate Abnormal (none) [facility] Comment on above: Performed By: #### L [id number], [id number] ####Auger Operator: UNA ARCE ([phone])[facility] [place] (SBHLAB)[address] [place] [address] [place] LYMPHOCYTES (10*3/UL) IN BLOOD-CELLAVISION 1.2 10*3/uL Normal 1.0-4.3 [facility] Comment on above: Performed By: #### L [id number], [id number] ####Auger Operator: UNA ARCE ([phone])[facility]A [place] (SBHLAB)[address] LYMPHOCYTES TOTAL PER COUNTED LEUKOCYTES BY MANUAL COUNT 10 Normal [facility] Comment on above: Performed By: #### L [id number], [id number] ####Auger Operator: UNA ARCE ([phone])[facility] [place] (SBHLAB)[address] [place] [address] [place] LYMPHOCYTES/100 LEUKOCYTES IN BLOOD-CELLAVISION 10 % Low 15-45 [facility] Comment on above: Performed By: #### L [id number], [id number] ####Auger Operator: UNA ARCE ([phone])[facility] [place] (SBHLAB)[address] [place] [address] [place] METAMYELOCYTES TOTAL PER COUNTED LEUKOCYTES BY MANUAL COUNT Normal [facility] Comment on above: Performed By: #### L [id number], [id number] ####Auger Operator: UNA ARCE ([phone])[facility] [place] (SBHLAB)[address] [place] [address] [place] MONOCYTES (10*3/UL) IN BLOOD-CELLAVISION 1.6 10*3/uL High 0.0-0.9 [facility] Comment on above: Performed By: #### L [id number], [id number] ####Auger Operator: UNA ARCE ([phone])[facility] [place] (SBHLAB)[address] [place] [address] [place] MONOCYTES TOTAL PER COUNTED LEUKOCYTES BY MANUAL COUNT 13 Normal [facility] Comment on above: Performed By: #### L [id number], [id number] ####Auger Operator: UNA STAUFFERMELANIE ([phone])[facility]A [place] (SBHLAB)[address] [place] [address] [place] MONOCYTES/100 LEUKOCYTES IN BLOOD-LUCIANA 13 % Normal - [facility] Comment on above: Performed By: #### L [id number], [id number] ####Auger Operator: UNA STAUFFERMELANIE ([phone])[facility] [place] (SBHLAB)[address] [place] [address] [place] MYELOCYTES COUNTED BY MANUAL COUNT [facility] Comment on above: Performed By: #### L [id number], [id number] ####Auger Operator: UNA STAUFFERMELANIE ([phone])[facility] [place] (SBHLAB)[address] [place] [address] [place] NEUTROPHILS TOTAL PER COUNTED LEUKOCYTES BY MANUAL COUNT 77 Normal [facility] Comment on above: Performed By: #### L [id number], [id number] ####Auger Operator: UNA ARCE ([phone])[facility] [place] (SBHLAB)[address] [place] [address] [place] POIKILOCYTOSIS (PRESENCE) IN BLOOD BY LIGHT MICROSCOPY Slight Abnormal (none) [facility] Comment on above: Performed By: #### L [id number], [id number] ####Auger Operator: UNA ARCE ([phone])[facility] [place] (SBHLAB)[address] [place] [address] [place] PROMYELOCYTES TOTAL PER COUNTED LEUKOCYTES BY MANUAL COUNT [facility] Comment on above: Performed By: #### L [id number], [id number] ####Auger Operator: UNA ARCE ([phone])[facility] [place] (SBHLAB)[address] [place] [address] [place] RBC MORPHOLOGY IN BLOOD abnormal Normal [facility] Comment on above: Performed By: #### L [id number], [id number] ####Auger Operator: UNA ARCE ([phone])[facility]ENTERA [facility] (SBHLAB)[address] SEGMENTED NEUTROPHILS (10*3/UL) IN BLOOD-CELLAVISION 9.3 10*3/uL High 1.8-7.5 [facility] Comment on above: Performed By: #### L [id number], [id number] ####Auger Operator: UNA ARCE ([phone])[facility]A [facility] (SBHLAB)[address] SEGMENTED NEUTROPHILS/100 LEUKOCYTES-CE 75 % Normal 38-82 [facility] Comment on above: Performed By: #### L [id number], [id number] ####Auger Operator: UNA ARCE ([phone])[facility] (SBHLAB)[address] STOMATOCYTES IN BLOOD BY LIGHT MICROSCOPY Slight Abnormal (none) [facility] Comment on above: Performed By: #### L [id number], [id number] ####Auger Operator: UNA ARCE ([phone])[facility] (SBHLAB)[address] UNCLASSIFIED CELLS TOTAL PER COUNTED LEUKOCYTES BY MANUAL COUNT Normal [facility] Comment on above: Performed By: #### L [id number], [id number] ####Auger Operator: UNA ARCE ([id number])[facility] (SBHLAB)[address] VARIANT LYMPHOCYTES TOTAL PER COUNTED LEUKOCYTES BY MANUAL COUNT Normal [facility] Comment on above: Performed By: #### L [id number], [id number] ####Auger Operator: UNA ARCE ([phone])[facility] (SBHLAB)[address] [place] [address] [place] Magnesium [Mass/Vol]on 04-15 Interpretation and review of laboratory results Normal [facility] No Panel Informationon 04-15 Basophils Manual 2 [facility] alth Eosinophils Manual 1 0 - 1 [facility] Interpretation and review of laboratory results Abnormal [facility] Lymphocytes Manual 10 [facility] Monocytes Manual 13 [facility] Neutrophils Manual 77 [facility] OCCULT BLOOD, STOOLon 2024 OCCULT BLOOD, STOOL FECAL OCCULT, STOOL Reference Negative Negative ORDER COMMENTS: Methodology: Immunoassay Normal [facility] Comment on above: Performed By: #### L [id number] ####Auger Operator: UNA ARCE ([phone])[facility] ([facility] [place] [address] Progress Noteon 04-15-2025 Progress Note [facility] Progress Note [facility] Progress [facility] XR Chest Single viewon 04-15 [facility] Radiology Study observation (narrative) Lynette Balderrama alth [id number] 04-14-2025 [id number] Normal [facility] Bacteria identified Anaer cx Nom (Unsp spec)on 04-14-2025 Interpretation and review of laboratory results Normal [facility] CBC W Auto Differential pane l (Bld)on 04-14-2025 Erythrocyte distribution width (RBC) [Ratio] 25.4 % High 11.5 - 15.0 % [facility] Hematocrit (Bld) [Volume fraction] 27.3 % Low 40.0 - 52.0 % [facility] Hemoglobin (Bld) [Mass/Vol] 7.6 g/dL Low 13.0 - 18.0 g/dL [facility] MCH (RBC) [Entitic mass] 23.2 pg Low 26. 0 - 34.0 pg [facility] MCHC (RBC) [Mass/Vol] 27.8 % Low 30.5 - 36.0 % [facility] MCV (RBC) [Entitic vol] 83.5 fL 77.0 - 99.0 fL [facility] Platelet mean volume (Bld) [Entitic vol] 8.9 fL Low 9.0 - 12.7 fL [facility] Platelets (Bld) [#/Vol] 293 10*3/uL 140 - 440 10*3/uL [facility] RBC (Bld) [#/Vol] 3.27 10*6/uL Low 4.40 - 5.9 0 10*6/uL [facility] WBC (Bld) [#/Vol] 12.3 10*3/uL High 3.6 - 10.7 10*3/uL [facility] CBC WITH AUTO DIFFERENTIALon 04-14-2025 Erythrocyte distribution width (RBC) [Ratio] 25.4 % High 11.5-15.0 [facility] Comment on above: Performed By: #### L [id number], [id number] ####Auger Operator: UNA ARCE ([phone])[facility] (SBAB)[address] [place] [address] Hematocrit (Bld) [Volume fraction] 27.3 % Low 40.0-52.0 [facility] Comment on above: Performed By: #### L [id number], [id number] ####Auger Operator: UNA ARCE ([phone])[facility] (SBHLAB)[address] [place] [address] Hemoglobin (Bld) [Mass/Vol] 7.6 g/dL Low 13.0-18.0 [facility] Comment on above: Performed By: #### L [id number], [id number] ####Auger Operator: UNA ARCE ([phone])[facility] (SBHLAB)[address] [place] [address] MCH (RBC) [Entitic mass] 23.2 pg Low 26.0-34.0 [facility] Comment on above: Performed By: #### L [id number], [id number] ####Auger Operator: UNA ARCE ([phone])[facility] (SBHLAB)[address] [place] [address] MCHC 27.8 % Low 30.5-36.0 [facility] Comment on above: Performed By: #### L [id number], [id number] ####Auger Operator: UNA ARCE ([phone])[facility] (SBAB)[address] MCV (RBC) [Entitic vol] 83.5 fL Normal 77.0-99.0 [facility] Comment on above: Performed By: #### L [id number], [id number] ####Auger Operator: UNA ARCE ([phone])LYNETTE BASHIRN (SBHLAB)[address] Platelet mean volume (Bld) [Entitic vol] 8.9 fL Low 9.0-12.7 [facility] Comment on above: Performed By: #### L [id number], [id number] ####Auger Operator: UNA ARCE ([id number])[facility] CENTERAngel [place] (SBHLAB)[address] Platelets (Bld) [#/Vol] 293 10*3/uL Normal 140-440 [facility] Comment on above: Performed By: #### L [id number], [id number] ####Auger Operator: UNA ARCE ([phone])[facility]ENTERAngel [place] (SBHLAB)[address] RBC (Bld) [#/Vol] 3.27 10*6/uL Low 4.40-5.90 [facility] Comment on above: Performed By: #### L [id number], [id number] ####Auger Operator: UNA ARCE ([phone])[facility]ENTERAngel [facility] (SBHLAB)[address] WBC (Bld) [#/Vol] 12.3 10*3/uL High 3.6-10.7 [facility] Comment on above: Performed By: #### L [id number], [id number] ####Auger Operator: UNA ARCE ([phone])LYNETTE BASHIRN (SBHLAB)[address] COMPREHENSIVE METABOLIC PANE Anant 04-14-2025 Albumin [Mass/Vol] 2.1 g/dL Low 3.4-4.8 [facility] Comment on above: Performed By: #### L [id number], [id number] ####Auger Operator: UNA ARCE ([phone])[facility]ENTERA MCKAYN (SBHLAB)[address] ALP [Catalytic activity/Vol] 47 U/L Normal 40-150 [facility] Comment on above: Performed By: #### L [id number], LAB17 ####Auger Operator: UNA ARCE ([phone])[facility] [place] (SBHLAB)[address] ALT [Catalytic activity/Vol] U/L Normal <40 [facility] Comment on above: Performed By: #### L [id number], LAB17 ####Auger Operator: UNA ARCE ([phone])[facility]ENTERA [facility] (SBHLAB)[address] Anion gap [Moles/Vol] 9 mmol/L Normal 3-13 [facility] Comment on above: Performed By: #### L [id number], LAB17 ####Auger Operator: UNA ARCE ([phone])[facility]ENTERA [facility] (SBHLAB)[address] AST [Catalytic activity/Vol] 19 U/L Normal <34 [facility] Comment on above: Performed By: #### L [id number], LAB17 ####Auger Operator: UNA ARCE ([phone])[facility] [place] (SBHLAB)[address] Bilirubin [Mass/Vol] 0.6 mg/dL Normal <1.2 [facility] Comment on above: Performed By: #### L [id number], LAB17 ####Auger Operator: UNA ARCE ([id number])[facility]A [facility] (SBHLAB)[address] Calcium [Mass/Vol] 8.1 mg/dL Low 8.8-10.0 [facility] Comment on above: Performed By: #### L [id number], LAB17 ####Auger Operator: UNA ARCE ([phone])LYNETTE BARBCHRISTINAN (SBHLAB)[address] Chloride [Moles/Vol] 92 mmol/L Low 98-107 [facility] Comment on above: Performed By: #### L [id number], LAB17 ####Auger Operator: UNA ARCE ([phone])[facility] [place] (SBHLAB)[address] CO2 [Moles/Vol] 39 mmol/L High 23-31 [facility] Comment on above: Performed By: #### L [id number], LAB17 ####Auger Operator: UNA ARCE ([phone])[facility]ENTERAngel [place] (SBHLAB)[address] Creatinine [Mass/Vol] 1.43 mg/dL High 0.72-1.25 [facility] Comment on above: Performed By: #### L [id number], LAB17 ####Auger Operator: UNA ARCE ([phone])[facility]ENTERA [place] (SBHLAB)[address] GLOMERULAR FILTRATION RATE ML/MIN/1.73 SQ M.PREDICTED 46.8 mL/min/1.73m*2 Low >60.0 [facility] Comment on above: Result Comment: Calc ulation based on the Chronic Kidney Disease Epidemiology Collaboration (CKD-EPI) equation refit without adjustment for race Performed By: #### L [id number], LAB17 ####Auger Operator: UNA ARCE ([phone])[facility] CENTERAngel [place] (SBHLAB)[address] [place] [address] [place] Glucose [Mass/Vol] 97 mg/dL Normal 82-115 [facility] Comment on above: Performed By: #### L [id number], LAB17 ####Auger Operator: UNA ARCE ([phone])[facility] [place] (SBHLAB)[address] [place] [address] [place] Potassium [Moles/Vol] 3.8 mmol/L Normal 3.5-5.1 [facility] Comment on above: Result Comment: [facility] potassium values may be up to 0.5 mmol/L lower than serum values. Performed By: #### L [id number], LAB17 ####Auger Operator: UNA ARCE ([phone])[facility]A [facility] (SBHLAB)[address] Protein [Mass/Vol] 5.7 g/dL Low 6.4-8.3 [facility] Comment on above: Performed By: #### L [id number], LAB17 ####Auger Operator: UNA ARCE ([phone])[facility]A [facility] (SBHLAB)[address] Sodium [Moles/Vol] 140 mmol/L Normal 136-145 [facility] Comment on above: Performed By: #### L [id number], LAB17 ####Auger Operator: UNA ARCE ([phone])[facility] (SBHLAB)[address] Urea nitrogen [Mass/Vol] 39 mg/dL High 9-23 [facility] Comment on above: Performed By: #### L [id number], LAB17 ####Auger Operator: UNA STAUFFERMELANIE ([phone])[facility] (SBHLAB)[address] Comprehensive metabolic 1998 panelon 04-14-2025 Albumin [Mass/Vol] 2.1 g/dL Low 3.4 - 4.8 g/dL [facility] ALP [Catalytic activity/Vol] 47 U/L 40 - 150 U/L [facility] ALT [Catalytic activity/Vol] U/L NINF - 40 U/L [facility] Anion gap [Moles/Vol] 9 mmol/L 3 - 13 mmol/L [facility] AST [Catalytic activity/Vol] 19 U/L NINF - 34 U/L [facility] Bilirubin [Mass/Vol] 0.6 mg/dL NINF - 1.2 mg/dL [facility] Calcium [Mass/Vol] 8.1 mg/dL Low 8.8 - 10. 0 mg/dL [facility] Chloride [Moles/Vol] 92 mmol/L Low 98 - 10 7 mmol/L [facility] CO2 [Moles/Vol] 39 mmol/L High 23 - 31 mmol/L [facility] Creatinine [Mass/Vol] 1.43 mg/dL High 0.72 - 1.25 mg/dL [facility] GFR/1.73 sq M.predicted (S/P/Bld) [Vol rate/Area] 46.8 mL/min Low - PINF [facility] Glucose [Mass/Vol] 97 mg/dL 82 - 115 mg/dL [facility] Interpretation and review of laboratory results Abnormal [facility] Potassium [Moles/Vol] 3.8 mmol/L 3.5 - 5.1 mmol/L [facility] Protein [Mass/Vol] 5.7 g/dL Low 6.4 - 8.3 g/dL [facility] Sodium [Moles/Vol] 140 mmol/L 136 - 145 mmol/L [facility] Urea nitrogen [Mass/Vol] 39 mg/dL High 9 - 23 mg/d L [facility] Consulton 04-14-2025 Consult Normal [facility] ECG 12-LEADon 04-14-2025 ECG 12-LEAD IMPRESSION: Sinus arrhythmia LEFT ANTERIOR FASCICULAR BLOCK MULTIPLE ATRIAL PREMATURE COMPLEXES Compared to ECG 04/05/2025 15:59:31 No significant changes Electronically Signed On 04-14-2025 07:12:58 EDT by Ronal Maurice Normal [facility] Laboratory - Chemistry and C hemistry - challengeon 04-14-2025 Magnesium [Mass/Vol] 1.9 mg/dL 1.6 - 2 .6 mg/dL [facility] Laboratory - Hematology and Cell countson 04-14-2025 Anisocytosis Ql (Bld) Slight Abnormal (none) [facility] Basophils (Bld) [#/Vol] 0.1 10*3/uL 0.0 - 0.2 10*3/uL [facility] Basophils/100 WBC (Bld) 1 % 0 - 2 % [facility] Eosinophils (Bld) [#/Vol] 0.4 10*3/uL 0.0 - 0.5 10*3/uL [facility] Eosinophils/100 WBC (Bld) 3 % 0 - 6 % [facility] Hypochromia Ql (Bld) Moderate Abnormal (none) [facility] Lymphocytes (Bld) [#/Vol] 0.9 10*3/uL Low 1.0 - 4.3 10*3/uL [facility] Lymphocytes/100 WBC (Bld) 7 % Low 15 - 45 % [facility] Monocytes (Bld) [#/Vol] 1.8 10*3/uL High 0.0 - 0.9 10*3/uL [facility] Monocytes/100 WBC (Bld) 15 % High 5 - 13 % [facility] Neutrophils (Bld) [#/Vol] 9.1 10*3/uL High 1.8 - 7.5 10*3/uL [facility] Poikilocytosis LM Ql (Bld) Slight Abnormal (none) [facility] RBC morphology finding Nom (Bld) abnormal [facility] Segmented neutrophils/100 WBC (Bld) 74 % 38 - 82 % [facility] Stomatocytes LM Ql (Bld) Moderate Abnormal (none) [facility] Variant lymphocytes (Bld) [#/Vol] 0.1 10*3/uL High NINF - 0.0 10*3/uL [facility] Variant lymphocytes/100 WBC (Bld) 1 % High NINF - 0 % [facility] Laboratory - Microbiology an d Antimicrobial susceptibilityon 04-14-2025 Bacteria identified Anaer cx Nom (Unsp spec) No growth at 5 days [facility] MAGNESIUMon 04-14-2025 Magnesium [Mass/Vol] 1.9 mg/dL Normal 1.6-2.6 [facility] Comment on above: Result Comment: YARELI [place] COMMENTS:Higher values can be expected in females during menses. Performed By: #### L [id number], LAB17 ####Auger Operator: UNA ARCE ([phone])[facility] (SBAB)[address] MANUAL DIFFERENTIAL (CELLAVI BANDAR)on 04-14-2025 ANISOCYTOSIS PRESENCE IN BLOOD BY LIGHT MICROSCOPY Slight Abnormal (none) [facility] Comment on above: Performed By: #### L [id number], [id number] ####Auger Operator: UNA ARCE ([phone])[facility] [place] (SBHLAB)[address] [place] [address] [place] BAND NEUTROPHILS TOTAL PER COUNTED LEUKOCYTES BY MANUAL COUNT [facility] Comment on above: Performed By: #### L [id number], [id number] ####Auger Operator: UNA ARCE ([id number])[facility] [place] ([facility] [place] [address] [place] BASOPHILS (10*3/UL) IN BLOOD-CELLAVISION 0.1 10*3/uL Normal 0.0-0.2 [facility] Comment on above: Performed By: #### L [id number], [id number] ####Auger Operator: UNA ARCE ([phone])[facility] [place] ([facility] [place] [address] [place] BASOPHILS TOTAL PER COUNTED LEUKOCYTES BY MANUAL COUNT 1 [facility] Comment on above: Performed By: #### L [id number], [id number] ####Auger Operator: UNA ARCE ([phone])[facility] [place] ([facility])[address] [place] [address] [place] BASOPHILS/100 LEUKOCYTES IN BLOOD-CELLAVISION 1 % Normal 0-2 [facility] Comment on above: Performed By: #### L [id number], [id number] ####Auger Operator: UNA ARCE ([id number])[facility] [place] ([facility])[address] [place] [address] [place] BLASTS TOTAL PER COUNTED LEUKOCYTES BY MANUAL COUNT [facility] Comment on above: Performed By: #### L [id number], [id number] ####Auger Operator: UNA ARCE ([phone])[facility] [place] ([facility])[address] [place] [address] [place] EOSINOPHILS (10*3/UL) IN BLOOD-CELLAVISION 0.4 10*3/uL Normal 0.0-0.5 [facility] Comment on above: Performed By: #### L [id number], [id number] ####Auger Operator: UNA ARCE ([phone])[facility] [place] ([facility])[address] [place] [address] [place] EOSINOPHILS TOTAL PER COUNTED LEUKOCYTES BY MANUAL COUNT 3 High 0-1 [facility] Comment on above: Performed By: #### L [id number], [id number] ####Auger Operator: UNA ARCE ([phone])[facility] [place] ([facility])[address] [place] [address] [place] EOSINOPHILS/100 LEUKOCYTES IN BLOOD-CELLAVISION 3 % Normal 0-6 [facility] Comment on above: Performed By: #### L [id number], [id number] ####Auger Operator: UNA ARCE ([phone])[facility] [place] ([facility])[address] [place] [address] [place] HYPOCHROMIA (PRESENCE) IN BLOOD BY LIGHT MICROSCOPY Moderate Abnormal (none) [facility] Comment on above: Performed By: #### L [id number], [id number] ####Auger Operator: UNA ARCE ([phone])[facility] [place] ([facility])[address] [place] [address] [place] LYMPHOCYTE VARIANT/100 LEUKOCYTES IN BLOOD- CELLAVISION 1 % High <=0 [facility] Comment on above: Performed By: #### L [id number], [id number] ####Auger Operator: UNA ARCE ([id number])[facility] [place] ([facility])[address] [place] [address] [place] LYMPHOCYTES (10*3/UL) IN BLOOD-CELLAVISION 0.9 10*3/uL Low 1.0-4.3 [facility] Comment on above: Performed By: #### L [id number], [id number] ####Auger Operator: UNA ARCE ([id number])[facility] [place] ([facility])[address] [place] [address] [place] LYMPHOCYTES TOTAL PER COUNTED LEUKOCYTES BY MANUAL COUNT 7 Normal [facility] Comment on above: Performed By: #### L [id number], [id number] ####Auger Operator: UNA ARCE ([id number])[facility] [place] ([facility])[address] [place] [address] [place] LYMPHOCYTES/100 LEUKOCYTES IN BLOOD-CELLAVISION 7 % Low 15-45 [facility] Comment on above: Performed By: #### L [id number], [id number] ####Auger Operator: UNA ARCE ([id number])[facility] [place] ([facility])[address] [place] [address] [place] METAMYELOCYTES TOTAL PER COUNTED LEUKOCYTES BY MANUAL COUNT Normal [facility] Comment on above: Performed By: #### L [id number], [id number] ####Auger Operator: UNA ARCE ([id number])[facility] [place] ([facility])[address] [place] [address] [place] MONOCYTES (10*3/UL) IN BLOOD-CELLAVISION 1.8 10*3/uL High 0.0-0.9 [facility] Comment on above: Performed By: #### L [id number], [id number] ####Auger Operator: UNA ARCE ([id number])[facility] [place] ([facility])[address] [place] [address] [place] MONOCYTES TOTAL PER COUNTED LEUKOCYTES BY MANUAL COUNT 15 Normal [facility] Comment on above: Performed By: #### L [id number], [id number] ####Auger Operator: UNA ARCE ([phone])[facility] [place] ([facility])[address] [place] [address] [place] MONOCYTES/100 LEUKOCYTES IN BLOOD-LUCIANA 15 % High 5-13 [facility] Comment on above: Performed By: #### L [id number], [id number] ####Auger Operator: UNA ARCE ([id number])[facility] [place] ([facility])[address] [place] [address] [place] MYELOCYTES COUNTED BY MANUAL COUNT [facility] Comment on above: Performed By: #### L [id number], [id number] ####Auger Operator: UNA ARCE ([id number])[facility] [place] ([facility])[address] [place] [address] [place] NEUTROPHILS TOTAL PER COUNTED LEUKOCYTES BY MANUAL COUNT 75 Normal [facility] Comment on above: Performed By: #### L [id number], [id number] ####Auger Operator: UNA ARCE ([phone])[facility] [place] ([facility])[address] POIKILOCYTOSIS (PRESENCE) IN BLOOD BY LIGHT MICROSCOPY Slight Abnormal (none) [facility] Comment on above: Performed By: #### L [id number], [id number] ####Auger Operator: UNA MOHRCER ([phone])[facility] [place] ([facility])[address] PROMYELOCYTES TOTAL PER COUNTED LEUKOCYTES BY MANUAL COUNT Normal [facility] Comment on above: Performed By: #### L [id number], [id number] ####Auger Operator: UNA ARCE ([id number])[facility] [place] ([facility])[address] [place] [address] [place] RBC MORPHOLOGY IN BLOOD abnormal Normal [facility] Comment on above: Performed By: #### L [id number], [id number] ####Auger Operator: UNA ARCE ([id number])[facility] [place] ([facility])[address] [place] [address] [place] SEGMENTED NEUTROPHILS (10*3/UL) IN BLOOD-CELLAVISION 9.1 10*3/uL High 1.8-7.5 [facility] Comment on above: Performed By: #### L [id number], [id number] ####Auger Operator: UNA ARCE ([phone])[facility] [place] ([facility])[address] [place] [address] [place] SEGMENTED NEUTROPHILS/100 LEUKOCYTES-CE 74 % Normal 38-82 [facility] Comment on above: Performed By: #### L [id number], [id number] ####Auger Operator: UNA ARCE ([id number])[facility] [place] ([facility])[address] [place] [address] [place] STOMATOCYTES IN BLOOD BY LIGHT MICROSCOPY Moderate Abnormal (none) [facility] Comment on above: Performed By: #### L [id number], [id number] ####Auger Operator: UNA ARCE ([phone])[facility] ([facility])[address] [place] [address] [place] UNCLASSIFIED CELLS TOTAL PER COUNTED LEUKOCYTES BY MANUAL COUNT Normal [facility] Comment on above: Performed By: #### L [id number], [id number] ####Auger Operator: UNA ARCE ([id number])[facility] ([facility])[address] VARIANT LYMPHOCYTES (10*3/UL) IN BLOOD-CELLAVISION 0.1 10*3/uL High <=0.0 [facility] Comment on above: Performed By: #### L [id number], [id number] ####Auger Operator: UNA ARCE ([id number])[facility] ([facility])[address] VARIANT LYMPHOCYTES TOTAL PER COUNTED LEUKOCYTES BY MANUAL COUNT 1 Normal [facility] Comment on above: Performed By: #### L [id number], [id number] ####Auger Operator: UNA ARCE ([phone])[facility] ([facility])[address] [place] [address] [place] Magnesium [Mass/Vol]on 04-14 Interpretation and review of laboratory results Normal [facility] No Panel Informationon 04-14 [facility] Radiology Study observation (narrative) [facility] ander Case Report [facility] Case Screening Location [facility], [address] [place] [address]; CLIA: [id number]; Joint Commission: HCO [id number]; CAP: [id number] [facility] Comment s3brcMGhCTIuoLXzJKZn M DpghoYoRXTjlKMhI1Odfv xwYTjcWI8ePK7xzHyxwRZ ocNGkIHUhYyUky4wbx241 jTBrd8xfLFAQFCoqQAXXM Lx3zZvqG00qi3H6IrxgZ7 3kcIGmWBI9OZTbXEKprZQ bEPTfAWW2HBFbbHAvW5tr XKPvJN8igyfrFVrjYDqpH WBniHI3ZQJlyRGhQ1HqRZ TnUFzlABCtrnx9WdEjTe9 vdGVyeTcyMFxwYXJkXHBs YWluXGZzMjAgUGxlYXNlI ILwBBCjn2WbR9zfhNMpHN TfOIByv0YtWMD5bU0cx3q 9WSBfTXRplMDwQQgYJhP9 ZPRvLSCmzGYvRxi0ZOV6x TVsCLNzCAp4jP5dCOium5 4yk4YsLyjbSLC2 [facility] p4xryQSjJQRpwMTpOsNw M ADbMZMoq3neXFPzuLQtOq EwMzNcZnRuYmpcdWMxXGR nVpCld6cyt331uSOrh7zj PSKkAtT8aJOmRLSiG43aL XWDV617LYXmBFkrz0mys5 MvCHVmaESjo3M6NRJWCTu uNOSMSMz5tVudV03iw4V2 RuqlJ7ghPAKyASPrN2LyO E2sQRFkVqo9NZJ6SXG8NR TtLENxA4GjPQ8xCFKmaHO yLUy1r4ywhTncFQYmKUX3 d0pzJQsatdBgXA8fjs3qq Rf3q6wodmHdXBLdEEAppP RXZUVxW8JwwDjtIz3krZf 7bWqxOfdzBAI1Bwz2CK4k fj43ujw8cJegYBTfpramR sH1LXlpNAKzhekfZIu4KP ipPLPgwWS8KZUnsUOiC3X lEBZtHB0mhwx9JTM5SSuu YTTjRbJ0RPStbUJtKNMta MksOOzeo520LKV7YjWcIQ 1hL2Umv9M6bE6ekVEfJTI cfBAvGxJoYMAikj5vbQSf KHglw3OdBXN8gqG7mSSii KXvBPYhHR01Mmjmp4QhPl ctFZP3APPniiUyy4Iue4z bFgBqncJyE2etI6DlDKLl IXDmPUCiSkHoziYbr4Twf 1KlzKYteTm3k6peSSDdVC FkuBbxc7msHAU7LSKoA4G 5fJTcn5uhZYysNUFzfSE8 hjH6SLKevOBlI6WxyX7pO TGsOV7kvrc2e8uaTUB2BY tfOPEbNcY2doG6BRPimJL aEFVusRwcTZhvw468MQR0 CjTgJTSlf2JmP7QtgHykV 67yxVumE56bUHXbrMbieQ 4ghSngoU3yWyDoYgXxWSd xbFxwbGFpblxmMVxmczE2 KFqaanmbENIvPGggW0onH pFoVONejCcrCClix9LtWY BkTTYsAZHnQRhmN2hpqE6 jxclpVCchOQVmlYxgr7ud BmYpdLK2WP2gmiFvZVFoq ZcpxsA0buLdrIgdcF1haP 9auRghsM1ylGPfqJF6zxu sIGluIHNpdHUgaHlicmlk kIrytByrozetpX8sBPQ9i CByHGT5rQHtUIIlDFQuRS GvuP86rj7usOTnaeDmV1G aU1VimCEawLbkCtrcpVFe lIVlNf5meZBkZE8uFIZlk MDrY2VtAQ9zTTXxrbgbIX IgVGhlIHVzZSBvZiBvbmU ey1GlnN8lGUMyIKMpNA76 zsDjwpE1bLAlWBHppnJhn GVzdHMgaXMgcmVndWxhdG YmBQPqWSBdWLZgBCx5oHA ne5ScT8htxLVchvYbO6Ef vRYbKOWAQY1kTRygt2Fuw ECnnRPsk8UbPAIiMASbkB 3uCOPyJK7dOMYiJJdxEJN gbcEyec6eylLnALQrNWMx H8XrlaixhHexhhZvUBRln r0yvdAyGEB8YFUuCSLhfX dijSOowUHyOSJygdE4g5H mDLSeh5EmG8NzrHLgELYg wSRsMMK3y8NsdJ0cFHuyy NYhRUKiLM9pnVFcKLKaRX NsZWFyZWQgYnkgdGhlIFV RMBShm0DjEU2aIJCnkAzy SWBqrF9wj5PeDREhh88xY EZEQSkuIFRoZSBGREEgaG FzIGRldGVybWluZWQgdGh dcMUopBOnNUYjLABaNZ2m QDIujlDczWVpq2HqyPQdy bKuc0KaxtToHGMkTYA3Iy BccGFyXHBhciBBbGwgaW1 avA7hr8RhsB4sMKjelqGu wILiCi2kjLTvJQ2qTEBvv mFmZmluIGVtYmVkZGVkIH Vxy3X2BM9rMDEctu6brna xcLQcfC5clVJmttUgIU6v KV9cC4P9rIKeFOSzedXvm 5ukWMm6lRQqENQvpQMnxM GqOigoIUX2VYYwVAP2ubD iewFgTTVpeEhjiDL3qLGc GXVvOLYpQAVfIA98C7Bxf 6JlC0goVJ93NGTnEVJiBU TruxWld3ccAHVxl7byDDN qpPKdS0BvDWYueRJzncjk LyBrCTZ5ZVKmWWU8vGGaW RRwE3MdnIKvoKDvyY51ZZ 9jeRD7RX4jMRQ5MMkibX9 dYiYGrE25rm7xzJJ1d2Um RO5gM0LyIHVyu8A4tuVuV UCwLS2deMDuAUFaPYQitX lkYXRlZCBvbiBkZWNhbGN bSjtiGUM8oPKekBGqRnIT ORK4dGVnLONiu5QsFZRqP WMpagMoulCcPSWlZLT9gT RbMPDllKHzn48vT2y1OM0 shVenYALgrSRhXMHfn2Kt uKDwpMt8bNAjCvXaPIbfC LNpJCsleUj8eSN5KO7tAC KhW4IiN6ocpUOwEOSeIBD wqROhrs2jsYRzeV== [facility] Description l0eviVZoWPPzrZSBJAZt M TRdRB2qwYutaZq1jLgiAP JupqY7nUKhROnay0wwKJK 3i2gimxUXVoxhEFQzJK6i TOmmVHMdJP6hCmCiTAUeB mYxXHBhcGVydzEyMjQwXH RbzGLqyTS8KFXzAX4klag dLSlzTAaiFKLlxaW8DTEv nWNeM4PlZXQkLH1czpiiG SL1IYTMNtahWq0zdWDzlV ANCntcZjFcZmNoYXJzZXQ xANOwy9yswyIBpuzqtTa0 KHx4UTRrHGEaaFVed3R6V Hioc2tej3MpJ5Ytf4OoEP h7vL1NLhyzT78ef2N1Rnb 2VYXxCFf2FUroGITqYYMr Naf3JAc9Z5pfMGIjNOalS PBcLExgtPBrLPw2RArzy8 XfkMZsKJz2GIqaSPYtZ2M zE4DzGZwnSqEzMHyqPXTa VCQcEYixHBXcS6HAJKPoL oH3OoO3CUJwDXw5SUimTf ZMGJL8JDu4QvW4IHt7WSN lYJ7tJUasuMJkSJiwWxzl MAvqI838VEtnUJLpV5YcD 3QgXFxzZyBcXGlkIDUxMD JhXQzuCGXtE1AKXLOfNqZ 5VyU6NKAiFVk7XEkrY7RN DCGiBWM6HAC9MbLoSpV2K Ym6QOSDEm0qSUX7BDT9BZ rcFKR1NZKmQVqrbjqyBYv 0IDIgXFxzcyAzIFxcZmwg JUrnO06kwDLcYOEORvqsg GFpblxlcGljTmVzdERvYz SfWFemgLKjsGMqSX2DUZc 0cmNoXGNmMVxmczIwIEEg ZXUHqOX1wwHpZGRowuq3h UylJntckKU6JRXuELHgHE xtNCFtRZm7HANwnSbfEDK fe3QjO0R9QKGrGVjkq1fs JVXoSJldr9ZoMAzDNQHSA B3CYG2dwTK1LBlYEGHGE6 vCxEWxEJUgB0tnjWP8u7b xuUWqa8x1AJuzQSM0gCCd b3JsgEgdUzsrbXE8HAuhW xywdF2qxHSBBEYSHanDZv bupmJkMC3XNELFYC2OuRZ vENQoG8yoxSQ9b4snuZPx z7g9RUioPPM4bVinmHFvz lxsdHJjaFxmczIwICBccH IynINrxPbzNpstbFW5YYr gKcbjbN2ibIXAGUYKRrnK SinaoiUiGX3TRXAAKdABB N88AEQ1QEN1zYL9Ic92BS FyNULrgNTlSQppE172h2P smcfjg7nepQVpRIwjBenp hAWnrpI4SAkZYGCTTDnFN oSbDR5uUIlHO9APBuF5CU N0QDF4kCH6Lh86ARWwVML yyNAwAJjjW757VCAgHNby KRm7hbFrSTQnGeUsLHRdo AflBSTiO9HeaoXhNBjmrx 03DPQ8b0qikTKqJPxyHsu efDIqdpJ9RReOCBEDAYnH ZuTyJE0oIDkYU3FZYZcRY rsmQKcqHrF8C6pjpZknLb pjcuNnfEEpZnXLiA9vwlR asKakInecpSJ9VEccXjkd fD5orDQNLCKCDugOMbqwh rPbFZ5KWDJGKD4PbFRvFJ IfXUrqjAC6f0lxyGAry3s 2XUtePIK0hJxepSLaqpps dYEshUnpfoPbRA9qLZWzk iANClxiXGNmMiBNYXRlcm febMVaGPDkzLXgYIS0NUI gKYWpYAHaSFTluZ4YteHs IGFuZCAxIENlbGwgQmxvY 0nmqnrptLPaRE7HLUQzic ANClxmMlxmczIyXHBhciA NAtwyYVEoXOCfhWBQi0Ba INCPPiv7TQ0LMYBqBFWbs GGLTZD2LG8zMDieCZXbP9 RmS3ZbrrH3n4cwnBhnj3B peLErMO0mpTLwGO1GMRIm ukEmRGvldQolqQ2fDAl2 [facility] Pathologist Interpretation Location [facility], [address] [place] [id number]; CLIA: [id number]; Joint Commission: HCO [id number]; CAP: [id number] [facility] Pathology report final diagnosis Narrative k7kcjSWnIGRfhOAmNUAiO LmogrRyLSHwpXZsS9Hphh jpNXmrHD1iJE7wdOcgvOU zfYJuKFGhEkUdn8iin870 xIVop7zpJOUWAZskVOJXW Pf4bTfwC39ya4J1FktbP4 eaSPR1SYyjpdGdkee7YBC igHZ6FLm3XZBerZRvlpSu NpMoAMNnrXJifAV8QQSiN C3rxzrlVAakREinARHtzj C7BVAgaZJtD6UcTZFsNP9 iqaujCBI2JQrsYGYfENT8 YmWtYDEsh3Axqzp1NrDgj GFyZFxwbGFpblxmczIwXG NmMSBBICAtIFBsZXVyYWw qF9C4nDY9NJOOuEshwEGm MZFsAGvvHfv5yUEaUEW1p Y0xx0h1FczcQiHuYVJtzO MyKI4OLK4HCWfLHkFUKHC DRUxMUyBJREVOVElGSUVE YisrAYBoBtCYM3FDWrBwJ 2TOHFAILYIMF3YHLkbpAC MrYG9zgHXsxQF7cA5sFEB yZXNlbnQuIFxwYXJ9 [facility] [employer] CV EPIPHANY [facility] Atypical Lymphocytes Manual 1 [facility] Basophils Manual 1 [facility] Eosinophils Manual 3 High 0 - 1 [facility] Interpretation and review of laboratory results Abnormal [facility] Lymphocytes Manual 7 [facility] Monocytes Manual 15 [facility] Neutrophils Manual 75 [facility] No Panel InformationOrdered By: Marianna Francois on 04-14-2025 [facility] [employer] Work Phone: No Panel InformationOrdered By: Danyel Platt on 04-14-2025 Case Report [facility] [employer] Work Phone: Case Screening Location [facility], [address] [place] [address]; CLIA: [id number]; Joint Commission: HCO [id number]; CAP: [id number] [facility] [employer] Work Phone: Comment o5jxvVQkHTPitEDvLOZa M EqxsoHvVZPcfNVxE5Ayuu sbBLfgPS5bYQ0xlXuneTO lqHLgGESxMuMit6lyx682 zUEpz0mwVCRMRXxdINYII Nt1qSajX58lc2L7MlaiZ3 1hgPPjDVQ0MEIxEWVrgFY vGRBwVWU4GUWkfWScU2kx UOKsID9mppzuZMguIVdcG FIdcRU2NWHiwQRrV2DxZV YxIKtuAALjmdi2WzBwRu6 vdGVyeTcyMFxwYXJkXHBs GDrjIDCiNqRhUE7ruO1cm BlihY3pyPPcnCY6gqyrKY sxaGeoO32wzXRgjHY8SSQ QZeYkseQuW7NmmfR2kK6t biBoaWdobGlnaHQgbWVzb 9SpBHqzJIggZ9HocRZjLM BCRVIgRVAgNCwgVFRGLTE aAARSJFokSW9rEAEMZtHp HZCgJC8sQ2B3lHRsMcFjH 7IcOgAtlPhfpEggO7k9yg BbrB4byw62wqWkCKFmu4E bDKpxwt6cwFRtnV== [facility] Work Phone: Disclaimer r0cqsGFoZSWvcITnMeUa M GSoNEJoi6ooDILwxSDrRp EwMzNcZnRuYmpcdWMxXGR wFhNqa8ujr006zIAyy9tm PUUqTmM1qXIqSEXcC45kK RLMM558ERFwCWbwz9tuz9 ZoQNSxiIApd4S4JGHXKSk xHZHWUNi1oOvtO29gj3K1 OlsgF1czOPZoGVDjC5BdV W0lRFQuVoh7TOP7GCW1OY LoDKOwR0YiUX9cYMIggZI yHIf8g0njtQvvGIYhGRV7 c0icBVfjmaFtIG2ptk9hw Vj0z0xezaYwFYZmORHebU KUFZBqY3PglSmzQj8mxRw 5tYwqPabqSCH8Fwc3DA6w kk23pfy7fHcsLBPvtpehT sS9VZyxVZVbelrhVWk4UW pnTNWzoQZ5QEBskHRyN0C kWEBrNB2mzyv1XEJ0EFle LBLdWiT0DYGntWSfUMPpt HhyDXlqa621NOI5XnMsYZ 3qQ7Igo1O3eG8ovBXhAEK hjDKhMpClRWBylc3tjAIp UGsjz9TiKXZ6erX9rHDbo ORcNVOkMZ17Prpnr1RgMk cqWEZ3HUWuflIyo7Qkr5m oQmXehmLnA8coL5ZzWIUc XPIsGVWeXoWfatXzq5Cht 1YxxWDsoPy0w0xaERSoVH FfkCmuy0giKMP4FKLuT1M 7jTCil0nrHMavMHGbqJH8 tnE4JPJszKNeZ8EypM9eH YShVE1cnmd8a9oeCRA2RN otRBFbNxZ2myI5WYPtoPF hETIbnBosRJgel836DDG7 QkSeRWJob0YaE6RyvKqcS 62vxUkbP54tORPqrSnfrT 4ofWgjgP8xGrBkNaLnOUp xbFxwbGFpblxmMVxmczE2 KDuwmrmqMKQnNYwtT8uvY oFfARJmiAilGXacs7QqIA UcOYAyHLDcGSgjP1afrJ7 kjlrxWPrvYBMxzSxkl9nk NtJbmUI0NS4hydCdMGYlo RgmgoA0gvXsoRfxvP8oiJ 8ixOsfmC9nnMIncYK3tui sIGluIHNpdHUgaHlicmlk eSfohTowxesncI0qVIX4j ZXlLWE9jQTtHCSuNYLrHY EuhY82ow9viGOgosJyY5V wD1CdfRChnAhfLblebQQk uFZyVs3vuKKoMR1bTWDfc NZkC7FpSQ5sMZRruxzkLA IgVGhlIHVzZSBvZiBvbmU zz2GkqR1mAOUcQHYcOT50 bqJweyF0lWXtNLZrruMym GVzdHMgaXMgcmVndWxhdG UyKTSsMFRlDQNvXMu0ePT zf3VjH4mcaKSafiAaK4Pe mGXbCEWULP6dKWebz1Guq XAinVKta4BnYGYiTZNkbH 7kQVQtOG2wTPVlHZoaVAD pecApxf0fseTuCRSzKIFe C3DmbnziyXxjhfYzWDIzh y2srlVkTDN7HILhTGCuqJ jogVPciXReCPOsmmV5m4P yDYUto6CpV9ZjeOClKCCu eWEaWIL1v5PbqF8cCFgga RFoEXUxBV3mmTXmSGHhVQ NsZWFyZWQgYnkgdGhlIFV RMLNbb6UlBI4qOUZssSmd ZDXsiL9ge3EuXGXij14kV EZEQSkuIFRoZSBGREEgaG FzIGRldGVybWluZWQgdGh qiAUelZBzJNHpLPCoIQ8t YDOaawCewQGeh0XlkFYdz iEmc2QgrdGfTDGwBYG2Pd BccGFyXHBhciBBbGwgaW1 xmY3hj8YaxU2dRThmzqQj aMCeJv5naCArYS0fAXRjo mFmZmluIGVtYmVkZGVkIH Nxa1B5NU7kBNTubo5rokn xsHTyjG3apLQhezQtGE6c DS7zO6W1gCZbUKFvuoVir 3fyIOt8qYMaWPYaiASrnL ObXkcuOIP6INLgUYA4fmB vumZcCRQmfDrrdLO6bLCw WBYeHCJpPYCmPX32B9Ugq 3JyI0tqCW65WWDzWUYbPV YxjlFwq6dkUIPgf9elZAW xfPEpH7IfNOVllBXkfqqz ZvEzMNW3HKAiTNE8kUOuL ZYzW1ZxvPKaiYFezL07PQ 3kiIO4QG7dZHG4YIsjdE4 zVkWTfN64jh8xfSA7y2Ik MD0jU1MmZOKuc9J1ghLnJ APmIX4kyCRcMADnPFIlsY lkYXRlZCBvbiBkZWNhbGN dBxsbNXT1xLKvxLPfFiCM EMN2sDNtUTMrq7VvBYAcZ YDfpzAnqfVbRQPqQOJ1sY ZlQQQemJLhe74xV3f6IV7 yyVrwCNVuiUKfBRYaq6Rd bMQyxQp5pLXaFdKxWGtyQ IAhJJezpVt3gBQ9VU0mPZ GcL8QuC0gwyPPsLPGjSUD qmMNpkx8qcMKczI== [facility] [employer] Work Phone: Gross Description y2lssLQgBFHidLXCWYKl M GRdLD9rnPwfdPy8aAanKL JwxzW0dAIxZXpvr2mcNSJ 6h5jzkqFFCbhcYQHmXE3m VZwnEKRbZG5lTaLoDGKnN mYxXHBhcGVydzEyMjQwXH ZfcOAeaJJ9ZUCpBX7bqqm pUTtoWKveOOYcgpV8XIXe wGLnC8HdENHtJY8ipqrpD GC4CMETMbqkIi5nmKLgxA ANCntcZjFcZmNoYXJzZXQ dSPUlw6flkoQQehiatNr6 LXb7CTUkKLCxkMIpa7Q4E Dihf3oym3ElU3Uav2QrCF n7vA9PDeljE51ac0D2Btw 3OVApIRj7EVrlJMVbESTv Ifk1WIv7K5fhKPUrFOhqC VOwVUkgkMOzWJo5JLkvw2 YpdLQfVZp0RWgnZEEmO1N bT7ClFIxeQdZtEEanSUDq AOEiHLuvSPJuI8ROHTDeK qH3FGq2SITrUQn7FCssPr ASXUI5XSP6WzQ5BKu5ZPQ pET9iQCsyxGRpKMeqTtop WVogP040YBeeULLoA3SqK 3QgXFxzZyBcXGlkIDUxMD LhAItyMTFmZ4LRWAKpEyE 7XTd1UQYrCTe1RWddN7IM CFEtOED8YWB3RgT1JeQ3G Vl6OLPHKp4zHDE1Qud1Tr h4WKU5IASkMPwwndqmUVa 0IDIgXFxzcyAzIFxcZmwg LKwjP07clSFsJZSKJhdtr GFpblxlcGljTmVzdERvYz PiUFisxYFsnDIuMP1SZTs 0cmNoXGNmMVxmczIwIEEg XSYVyIN5xcAmVSMtbii9l EsvOHBkjZboK3LqZXCgVF BhciANCjEwMDAgbUwgXHB li7MrN6S1VLItAVunu6ty XLNkYQurz3FpMFiMSEVKI Z9DLZ0mdYH0OEaDXGIYW5 yCzLRdIRMjX3xnfPM3c4z liYXxm3f8WAfmTCS7uXFo p5GnuBtoRbrxrIH5ACesO usspI1lnZJQVHZLIatMMi lncrFyNK7GBVCSCG0OvPC pQJCqR4vryKU0p3vreNEq l0u7WWtyAQR8mGnvzAZge lxsdHJjaFxmczIwICBccH AlfUBhfFivKvekqRB3JZz wCtvspC4rgNJKDCFIByiR UldugaEyNZ2VQZSORoAZM E44LMY9MOG5lFT2Wh25YA VnAWFkbYXpYBrbJ060lKO hfB88g5shcPDePJvnJdoi lNEimbZ3OAjMVENYHLiPM rCzDB9nIUpAD5ZLPkG4DP J1GDL4fZH6Ki13BTBaKMX ifFKoZDzeX205RGVgIRie WYn7eaQbQKEkCiRiDPEhr NojCLYfY3JjitKdIGyaxf 30XBK6e6eygNBnKVwwKuu jaPCdosU0NCwZOCMZOYdJ JvClUF2nWRqXB7DCFHvWX ympXFogAbN7O0rcxXhaHq seehXcrIJuTeMFeM8iyyZ reVwkEsccuIH0ZLhyJcvz yJ8diCTNNVWBHpcQEsguj nGwSS9XVYNMGQ6QrXPnGF BtBQstpRQ9y0xlxXXgu5b 4RMpiCLN0tEewdEDjvity uWEjeRtmttDmYY8hMEMhk iANClxiXGNmMiBNYXRlcm cmjSOaWFSvsQCeUHM6FKY zXMYtIBUoMJYuaQ9FuqXi IGFuZCAxIENlbGwgQmxvY 7kdxhnhsJTeAN2ZSUCnvg ANClxmMlxmczIyXHBhciA OIhvwJGSaHCEcxRUGh0Br PNNJRrg2YI3NHECnSFRjy JYURUD9GX7oYKanPIIzC0 BdE2MtcuE5p4utzKupd1R qhMPhBJ2npXExEW4VXMZv ueIfYKbpaHkfsI8tBNs3 [facility] Pathologist Interpretation Location [facility], [address] [place] [id number]; CLIA: [id number]; Joint Commission: [id number]; CAP: [id number] [facility]: Pathology report final diagnosis Narrative d5fipXMhJSJibVOoWDZuD UhbfhAiGHQbfUSlN8Txnk wpBEshSM8tOM6rwUdpqDW oiNLxCYNkSlWhl8cqf647 aREdd6leIXRTXXbfTNFTN Bf9fWxyB93gr3N0SlctR8 yjXOY2ZDzezmKdmod2KMD rrBP6JOw0WXRazHAgxbOi OzMtEMTmdKXoqMH7JGZqG O2tkeizKSzyBOqbINTrys U5LCYcnAFhU3PsXFGuGJ3 ggxdtIZX4DSruKGNtDCO9 LsGvKFOoq4Cgkti4CkPsk GFyZFxwbGFpblxmczIwXG NmMSBBICAtIFBsZXVyYWw uM5R9wOY6RZLCNNH5OY3v Eo3xmSFLqOQuJOosN2c5m 4cuX4y0XIGwRSAqARlaWK ZpYg4xALFKSNvFGQ9OASM EQNkVQBuIRZ9PACTCDHJe XHBhclxwYXJ9 [employer] Work Phone: [employer] Work Phone: No Panel InformationOrdered By: Ronal Maurice on 04-14-2025 P Max 44 degrees [employer] Work Phone: HI Interval 134 ms [facility] Work Phone: QRS Max -35 degrees [facility] Work Phone: QRSD Interval 117 ms [facility] Work [facility]: QT Interval 390 ms [employer] Work Phone: QTC Interval 450 ms [employer] Work Phone: T Wave Max 78 degrees [employer] Work Phone: [facility] Work Phone: Nursing Noteon 08-06-2025 Nursing Note Normal [facility] Progress Noteon 04-14-2025 Progress [facility] Progress [facility] Progress [facility] Progress Note Normal [facility] Progress [facility] Progress [facility] US GUIDED THORACENTESISon US GUIDED THORACENTESIS Normal [facility] Vital signsOrdered By: Jake Maurice on 04-14-2025 Heart rate 80 /min bpm [facility] Phone: XR Chest Single viewon 04-14 [facility] XR Chest Single viewOrdered By: Anthony Christian on 04-14-2025 [facility] Phone: [phone] 04-13-2025 [id number] Normal [facility] BLOOD GAS ARTERIALon 025 AMOUNT OF OXYGEN 2 lpm Normal [facility] Comment on above: Order Comment: Pleas e draw tomorrow AM after using BiPAP. Thank you! Performed By: #### L [id number] ####Auger Operator: UNA ARCE ([id number])[facility] ([address] Base excess Calc (Bld) [Moles/Vol] 11.7 mmol/L High -3.0-3.0 [facility] Comment on above: Order Comment: Pleas e draw tomorrow AM after using BiPAP. Thank you! Performed By: #### L [id number] ####Auger Operator: UNA ARCE ([id number])[facility] ([facility])[address] [place] [address] CO2 [Moles/Vol] 39.9 mmol/L High 22.0-28.0 [facility] Comment on above: Order Comment: Pleas e draw tomorrow AM after using BiPAP. Thank you! Performed By: #### L [id number] ####Auger Operator: UNA [id number])[facility] [place] ([facility])[address] HCO3 (Bld) [Moles/Vol] 38.1 mmol/L High 21.0-27.0 [facility] Comment on above: Order Comment: Pleas e draw tomorrow AM after using BiPAP. Thank you! Performed By: #### L [id number] ####Auger Operator: UNA STAUFFERMELANIE ([id number])[facility] ([facility])[address] Hemoglobin (Bld) [Mass/Vol] 11.3 g/dL Low Screen only [facility] Comment on above: Order Comment: Pleas e draw tomorrow AM after using BiPAP. Thank you! Performed By: #### L [id number] ####Auger Operator: UNA STAUFFERMELANIE ([id number])[facility] ([facility])[address] [place] [address] OXYGEN SATURATION (%) IN ARTERIAL BLOOD 95.1 % Low 97.0-99.0 [facility] Comment on above: Order Comment: Pleas e draw tomorrow AM after using BiPAP. Thank you! Performed By: #### L [id number] ####Auger Operator: UNA ARCE ([id number])[facility] ([facility])[address] [place] [address] PCO2 ARTERIAL 59.2 mm Hg High 35.0-48.0 [facility] Comment on above: Order Comment: Pleas e draw tomorrow AM after using BiPAP. Thank you! Performed By: #### L [id number] ####Auger Operator: UNA STAUFFERMELANIE ([id number])[facility] ([facility])[address] PH ARTERIAL 7.426 Normal 7.350-7.450 [facility] Comment on above: Order Comment: Pleas e draw tomorrow AM after using BiPAP. Thank you! Performed By: #### L [id number] ####Auger Operator: UNA ARCE ([id number])[facility] ([facility])[address] PO2 ARTERIAL 79.2 mm Hg Low 83.0-108.0 [facility] Comment on above: Order Comment: Pleas e draw tomorrow AM after using BiPAP. Thank you! Performed By: #### L [id number] ####Auger Operator: UNA ARCE ([phone])[facility] (SBHLAB)[address] SOURCE OF OXYGEN Nasal Cannula (LPM) Normal [facility] Comment on above: Order Comment: Pleas e draw tomorrow AM after using BiPAP. Thank you! Performed By: #### L [id number] ####Auger Operator: UNA ARCE ([phone])[facility] (SBHL[facility])[address] Bacteria identified Aer cx N om (Unsp spec)on 04-13-2025 Gram Stain Result Rare Polymorphonuclear leukocytes per low power field [facility] Gram Stain Result No organisms seen [facility] Bacteria identified Aer cx N om (Unsp spec)Ordered By: Bianca Daigle on 04-13-2025 Gram Stain Result Moderate Polymorphonuclear leukocytes per low power field [facility] Gram Stain Result No organisms seen [facility] CBC W Auto Differential pane l (Bld)on 04-13-2025 Erythrocyte distribution width (RBC) [Ratio] 25 % High 11.5 - 15.0 % [facility] Hematocrit (Bld) [Volume fraction] 28.2 % Low 40.0 - 52.0 % [facility] Hemoglobin (Bld) [Mass/Vol] 7.8 g/dL Low 13.0 - 18.0 g/dL [facility] Interpretation and review of laboratory results Abnormal [facility] MCH (RBC) [Entitic mass] 23.2 pg Low 26. 0 - 34.0 pg [facility] MCHC (RBC) [Mass/Vol] 27.7 % Low 30.5 - 36.0 % [facility] MCV (RBC) [Entitic vol] 83.9 fL 77.0 - 99.0 fL [facility] Platelet mean volume (Bld) [Entitic vol] 9.1 fL 9.0 - 12.7 fL [facility] Platelets (Bld) [#/Vol] 276 10*3/uL 140 - 440 10*3/uL [facility] RBC (Bld) [#/Vol] 3.36 10*6/uL Low 4.40 - 5.9 0 10*6/uL [facility] WBC (Bld) [#/Vol] 12.7 10*3/uL High 3.6 - 10.7 10*3/uL [facility] CBC WITH AUTO DIFFERENTIALon 04-13-2025 Erythrocyte distribution width (RBC) [Ratio] 25.0 % High 11.5-15.0 [facility] Comment on above: Performed By: #### L [id number], [id number] ####Auger Operator: UNA ARCE ([phone])[facility] ([facility])[address] [place] [address] Hematocrit (Bld) [Volume fraction] 28.2 % Low 40.0-52.0 [facility] Comment on above: Performed By: #### L [id number], [id number] ####Auger Operator: UNA ARCE ([phone])[facility] ([facility])[address] [place] [address] Hemoglobin (Bld) [Mass/Vol] 7.8 g/dL Low 13.0-18.0 [facility] Comment on above: Performed By: #### L [id number], [id number] ####Auger Operator: UNA ARCE ([phone])[facility] ([facility])[address] [place] [address] MCH (RBC) [Entitic mass] 23.2 pg Low 26.0-34.0 [facility] Comment on above: Performed By: #### L [id number], [id number] ####Auger Operator: UNA ARCE ([phone])[facility] ([facility])[address] [place] [address] MCHC 27.7 % Low 30.5-36.0 [facility] Comment on above: Performed By: #### L [id number], [id number] ####Auger Operator: UNA ARCE ([phone])[facility] [place] (SBHLAB)[address] MCV (RBC) [Entitic vol] 83.9 fL Normal 77.0-99.0 [facility] Comment on above: Performed By: #### L [id number], [id number] ####Auger Operator: UNA ARCE ([phone])[facility] [place] (SB[facility])[address] Platelet mean volume (Bld) [Entitic vol] 9.1 fL Normal 9.0-12.7 [facility] Comment on above: Performed By: #### L [id number], [id number] ####Auger Operator: UNA ARCE ([phone])[facility] [place] (SBHL[facility])[address] [place] [address] [place] Platelets (Bld) [#/Vol] 276 10*3/uL Normal 140-440 [facility] Comment on above: Performed By: #### L [id number], [id number] ####Auger Operator: UNA ARCE ([phone])[facility] [place] (SB[facility])[address] RBC (Bld) [#/Vol] 3.36 10*6/uL Low 4.40-5.90 [facility] Comment on above: Performed By: #### L [id number], [id number] ####Auger Operator: UNA ARCE ([id number])[facility] [place] (SB[facility])[address] [place] [address] [place] WBC (Bld) [#/Vol] 12.7 10*3/uL High 3.6-10.7 [facility] Comment on above: Performed By: #### L [id number], [id number] ####Auger Operator: UNA ARCE ([id number])[facility] [place] (SB[facility])[address] COMPREHENSIVE METABOLIC PANE Anant 04-13-2025 Albumin [Mass/Vol] 2.2 g/dL Low 3.4-4.8 [facility] Comment on above: Performed By: #### L [id number], [id number], [id number] ####Auger Operator: UNA ARCE ([phone])[facility] [place] ([facility])[address] ALP [Catalytic activity/Vol] 52 U/L Normal 40-150 [facility] Comment on above: Performed By: #### L AB17, [id number], [id number] ####Auger Operator: UNA ARCE ([phone])[facility] [place] ([facility])[address] ALT [Catalytic activity/Vol] U/L Normal <40 [facility] Comment on above: Performed By: #### L AB17, [id number], [id number] ####Auger Operator: UNA ARCE ([phone])[facility] [place] ([facility])[address] Anion gap [Moles/Vol] 10 mmol/L Normal 3-13 [facility] Comment on above: Performed By: #### L [id number], [id number], [id number] ####Auger Operator: UNA ARCE ([phone])[facility] (SB[facility])[address] AST [Catalytic activity/Vol] 25 U/L Normal <34 [facility] Comment on above: Performed By: #### L AB17, [id number], [id number] ####Auger Operator: UNA ARCE ([id number])[facility] [place] (SB[facility])[address] Bilirubin [Mass/Vol] 0.6 mg/dL Normal <1.2 [facility] Comment on above: Performed By: #### L AB17, [id number], [id number] ####Auger Operator: UNA ARCE ([phone])[facility] [place] (SB[facility])[address] Calcium [Mass/Vol] 8.1 mg/dL Low 8.8-10.0 [facility] Comment on above: Performed By: #### L AB17, [id number], [id number] ####Auger Operator: UNA ARCE ([phone])[facility] [place] (SB[facility])[address] Chloride [Moles/Vol] 93 mmol/L Low 98-107 [facility] Comment on above: Performed By: #### L AB17, [id number], [id number] ####Auger Operator: UNA ARCE ([phone])[facility] [place] (SB[facility])[address] CO2 [Moles/Vol] 36 mmol/L High 23-31 [facility] Comment on above: Performed By: #### Gilbert AB17, [id number], [id number] ####Auger Operator: UNA ARCE ([phone])[facility]ENTERAngel [place] (SBHLAB)[address] Creatinine [Mass/Vol] 1.46 mg/dL High 0.72-1.25 [facility] Comment on above: Performed By: #### L AB17, [id number], [id number] ####Auger Operator: UNA ARCE ([id number])[facility] [place] (SB[facility])[address] [place] [address] [place] GLOMERULAR FILTRATION RATE ML/MIN/1.73 SQ M.PREDICTED 45.7 mL/min/1.73m*2 Low >60.0 [facility] Comment on above: Result Comment: Calc ulation based on the Chronic Kidney Disease Epidemiology Collaboration (CKD-EPI) equation refit without adjustment for race Performed By: #### L AB17, [id number], [id number] ####Auger Operator: UNA ARCE ([phone])[facility] [place] (SB[facility])[address] [place] [address] [place] Glucose [Mass/Vol] 94 mg/dL Normal 82-115 [facility] Comment on above: Performed By: #### L AB17, [id number], [id number] ####Auger Operator: UNA ARCE ([phone])[facility]ENTERAngel [facility] (SBHLAB)[address] Potassium [Moles/Vol] 3.4 mmol/L Low 3.5-5.1 [facility] Comment on above: Result Comment: [facility] potassium values may be up to 0.5 mmol/L lower than serum values. Performed By: #### L AB17, [id number], [id number] ####Auger Operator: UNA ARCE ([phone])[facility] (SB[facility])[address] Protein [Mass/Vol] 5.8 g/dL Low 6.4-8.3 [facility] Comment on above: Performed By: #### L AB17, [id number], [id number] ####Auger Operator: UNA ARCE ([phone])[facility] (SB[facility])[address] Sodium [Moles/Vol] 139 mmol/L Normal 136-145 [facility] Comment on above: Performed By: #### L AB17, [id number], [id number] ####Auger Operator: UNA ARCE ([id number])[facility] (SB[facility]AB)[address] Urea nitrogen [Mass/Vol] 37 mg/dL High 9-23 [facility] Comment on above: Performed By: #### L AB17, [id number], [id number] ####Auger Operator: UNA ARCE ([phone])[facility] (SB[facility])[address] Comprehensive metabolic 1998 panelon 04-13-2025 Albumin [Mass/Vol] 2.2 g/dL Low 3.4 - 4.8 g/dL [facility] ALP [Catalytic activity/Vol] 52 U/L 40 - 150 U/L [facility] ALT [Catalytic activity/Vol] U/L NINF - 40 U/L [facility] Anion gap [Moles/Vol] 10 mmol/L 3 - 13 mmol/L [facility] AST [Catalytic activity/Vol] 25 U/L NINF - 34 U/L [facility] Bilirubin [Mass/Vol] 0.6 mg/dL NINF - 1.2 mg/dL [facility] Calcium [Mass/Vol] 8.1 mg/dL Low 8.8 - 10. 0 mg/dL [facility] Chloride [Moles/Vol] 93 mmol/L Low 98 - 10 7 mmol/L [facility] CO2 [Moles/Vol] 36 mmol/L High 23 - 31 mmol/L [facility] Creatinine [Mass/Vol] 1.46 mg/dL High 0.72 - 1.25 mg/dL [facility] GFR/1.73 sq M.predicted (S/P/Bld) [Vol rate/Area] 45.7 mL/min Low - PINF [facility] Glucose [Mass/Vol] 94 mg/dL 82 - 115 mg/dL [facility] Interpretation and review of laboratory results Abnormal [facility] Potassium [Moles/Vol] 3.4 mmol/L Low 3.5 - 5.1 mmol/L [facility] Protein [Mass/Vol] 5.8 g/dL Low 6.4 - 8.3 g/dL [facility] Sodium [Moles/Vol] 139 mmol/L 136 - 145 mmol/L [facility] Urea nitrogen [Mass/Vol] 37 mg/dL High 9 - 23 mg/d L [facility] Laboratory - Chemistry and C hemistry - challengeon 04-13-2025 Base excess Calc (Bld) [Moles/Vol] 11.7 mmol/L High -3.0 - 3.0 mmol/L [facility] CO2 (Bld) [Partial pressure] 59.2 mm[Hg] High [facility] CO2 [Moles/Vol] 39.9 mmol/L High 22.0 - 28.0 mmol/L [facility] HCO3 (Bld) [Moles/Vol] 38.1 mmol/L High 21.0 - 27.0 mmol/L [facility] Oxygen (Bld) [Partial pressure] 79.2 mm[Hg] Low [facility] pH (Bld) 7.426 [pH] 7.350 - 7.450 [facility] Magnesium [Mass/Vol] 1.9 mg/dL 1.6 - 2 .6 mg/dL [facility] Laboratory - Hematology and Cell countson 04-13-2025 Hemoglobin (Bld) [Mass/Vol] 11.3 g/dL Low 13.5 - 17.5 g/dl [facility] Anisocytosis Ql (Bld) Moderate Abnormal (none) [facility] Eosinophils (Bld) [#/Vol] 0.3 10*3/uL 0.0 - 0.5 10*3/uL [facility] Eosinophils/100 WBC (Bld) 2 % 0 - 6 % [facility] Hypochromia Ql (Bld) Slight Abnormal (none) [facility] Lymphocytes (Bld) [#/Vol] 1.9 10*3/uL 1.0 - 4.3 10*3/uL [facility] Lymphocytes/100 WBC (Bld) 15 % 15 - 45 % [facility] Monocytes (Bld) [#/Vol] 0.9 10*3/uL 0.0 - 0.9 10*3/uL [facility] Monocytes/100 WBC (Bld) 7 % 5 - 13 % S [facility] Myelocytes (Bld) [#/Vol] 0.1 10*3/uL High SELENE F - 0.0 10*3/uL [facility] Myelocytes/100 WBC (Bld) 1 % High NINF - 0 % [facility] Neutrophils (Bld) [#/Vol] 9.7 10*3/uL High 1.8 - 7.5 10*3/uL [facility] Poikilocytosis LM Ql (Bld) Slight Abnormal (none) [facility] RBC morphology finding Nom (Bld) abnormal [facility] Segmented neutrophils/100 WBC (Bld) 76 % 38 - 82 % [facility] Stomatocytes LM Ql (Bld) Slight Abnormal (none) [facility] Laboratory - Microbiology an d Antimicrobial susceptibilityon 04-13-2025 Bacteria identified Aer cx Nom (Unsp spec) No growth at 4 days [facility] Laboratory - Microbiology an d Antimicrobial susceptibilityOrdered By: Bianca Daigle on 04-13-2025 Bacteria identified Aer cx Nom (Unsp spec) No growth at 4 days [facility] MAGNESIUMon 04-13-2025 Magnesium [Mass/Vol] 1.9 mg/dL Normal 1.6-2.6 [facility] Comment on above: Result Comment: ORDE R COMMENTS:Higher values can be expected in females during menses. Performed By: #### L AB17, [id number], [id number] ####Auger Operator: UNA ARCE ([phone])[facility] [place] (SB[facility])[address] MANUAL DIFFERENTIAL (CELLAVI BANDAR)on 04-13-2025 ANISOCYTOSIS PRESENCE IN BLOOD BY LIGHT MICROSCOPY Moderate Abnormal (none) [facility] Comment on above: Performed By: #### L [id number], [id number] ####Auger Operator: UNA ARCE ([phone])[facility] [place] (SBHLAB)[address] BAND NEUTROPHILS TOTAL PER COUNTED LEUKOCYTES BY MANUAL COUNT Normal [facility] Comment on above: Performed By: #### L [id number], [id number] ####Auger Operator: UNA ARCE ([phone])[facility] [place] (SB[facility]AB)[address] BASOPHILS TOTAL PER COUNTED LEUKOCYTES BY MANUAL COUNT Normal [facility] Comment on above: Performed By: #### L [id number], [id number] ####Auger Operator: UNA ARCE ([phone])[facility] [place] (SB[facility])[address] BLASTS TOTAL PER COUNTED LEUKOCYTES BY MANUAL COUNT Normal [facility] Comment on above: Performed By: #### L [id number], [id number] ####Auger Operator: UNA ARCE ([phone])[facility] [place] (SBHLAB)[address] [place] [address] [place] EOSINOPHILS (10*3/UL) IN BLOOD-CELLAVISION 0.3 10*3/uL Normal 0.0-0.5 [facility] Comment on above: Performed By: #### L [id number], [id number] ####Auger Operator: UNA ARCE ([phone])[facility] [place] (SBHLAB)[address] [place] [address] [place] EOSINOPHILS TOTAL PER COUNTED LEUKOCYTES BY MANUAL COUNT 2 High 0-1 [facility] Comment on above: Performed By: #### L [id number], [id number] ####Auger Operator: UNA ARCE ([id number])[facility] [place] (SBHLAB)[address] [place] [address] [place] EOSINOPHILS/100 LEUKOCYTES IN BLOOD-CELLAVISION 2 % Normal 0-6 [facility] Comment on above: Performed By: #### L [id number], [id number] ####Auger Operator: UNA MOHRCER ([phone])[facility] [place] (SBHLAB)[address] [place] [address] [place] HYPOCHROMIA (PRESENCE) IN BLOOD BY LIGHT MICROSCOPY Slight Abnormal (none) [facility] Comment on above: Performed By: #### L [id number], [id number] ####Auger Operator: UNA ARCE ([phone])[facility] (SBHLAB)[address] [place] [address] [place] LYMPHOCYTES (10*3/UL) IN BLOOD-CELLAVISION 1.9 10*3/uL Normal 1.0-4.3 [facility] Comment on above: Performed By: #### L [id number], [id number] ####Auger Operator: UNA ARCE ([phone])[facility] [place] (SBHLAB)[address] [place] [address] [place] LYMPHOCYTES TOTAL PER COUNTED LEUKOCYTES BY MANUAL COUNT 15 Normal [facility] Comment on above: Performed By: #### L [id number], [id number] ####Auger Operator: UNA ARCE ([id number])[facility] [place] (SB[facility]AB)[address] [place] [address] [place] LYMPHOCYTES/100 LEUKOCYTES IN BLOOD-CELLAVISION 15 % Normal 15-45 [facility] Comment on above: Performed By: #### L [id number], [id number] ####Auger Operator: UNA ARCE ([id number])[facility] [place] (SBHLAB)[address] [place] [address] [place] METAMYELOCYTES TOTAL PER COUNTED LEUKOCYTES BY MANUAL COUNT Normal [facility] Comment on above: Performed By: #### L [id number], [id number] ####Auger Operator: UNA ARCE ([phone])[facility] [place] (SB[facility]AB)[address] [place] [address] [place] MONOCYTES (10*3/UL) IN BLOOD-CELLAVISION 0.9 10*3/uL Normal 0.0-0.9 [facility] Comment on above: Performed By: #### L [id number], [id number] ####Auger Operator: UNA ARCE ([phone])[facility] [place] (SBHLAB)[address] [place] [address] [place] MONOCYTES TOTAL PER COUNTED LEUKOCYTES BY MANUAL COUNT 7 Normal [facility] Comment on above: Performed By: #### L [id number], [id number] ####Auger Operator: UNA ARCE ([id number])[facility] [place] (SBHLAB)[address] [place] [address] [place] MONOCYTES/100 LEUKOCYTES IN BLOOD-LUCIANA 7 % Normal 5-13 [facility] Comment on above: Performed By: #### L [id number], [id number] ####Auger Operator: UNA ARCE ([phone])[facility] [place] (SB[facility]AB)[address] [place] [address] [place] MYELOCYTES (10*3/UL) IN BLOOD-CELLAVISION 0.1 10*3/uL High <=0.0 [facility] Comment on above: Performed By: #### L [id number], [id number] ####Auger Operator: UNA ARCE ([id number])[facility] [place] (SBHLAB)[address] [place] [address] [place] MYELOCYTES COUNTED BY MANUAL COUNT 1 Normal [facility] Comment on above: Performed By: #### L [id number], [id number] ####Auger Operator: UNA [phone])[facility] [place] (SBHLAB)[address] [place] [address] [place] MYELOCYTES/100 LEUKOCYTES IN BLOOD-CELLAVISION 1 % High <=0 [facility] Comment on above: Performed By: #### L [id number], [id number] ####Auger Operator: UNA ARCE ([phone])[facility] [place] (SBHLAB)[address] [place] [address] [place] NEUTROPHILS TOTAL PER COUNTED LEUKOCYTES BY MANUAL COUNT 77 Normal [facility] Comment on above: Performed By: #### L [id number], [id number] ####Auger Operator: UNA ARCE ([phone])[facility] [place] (SBHLAB)[address] [place] [address] [place] POIKILOCYTOSIS (PRESENCE) IN BLOOD BY LIGHT MICROSCOPY Slight Abnormal (none) [facility] Comment on above: Performed By: #### L [id number], [id number] ####Auger Operator: UNA ARCE ([id number])[facility] [place] (SBHLAB)[address] [place] [address] [place] PROMYELOCYTES TOTAL PER COUNTED LEUKOCYTES BY MANUAL COUNT [facility] Comment on above: Performed By: #### L [id number], [id number] ####Auger Operator: UNA ARCE ([phone])[facility] [place] (SBHLAB)[address] [place] [address] [place] RBC MORPHOLOGY IN BLOOD abnormal Normal [facility] Comment on above: Performed By: #### L [id number], [id number] ####Auger Operator: UNA ARCE ([phone])[facility] [place] (SBHLAB)[address] [place] [address] [place] SEGMENTED NEUTROPHILS (10*3/UL) IN BLOOD-CELLAVISION 9.7 10*3/uL High 1.8-7.5 [facility] Comment on above: Performed By: #### L [id number], [id number] ####Auger Operator: NUA ARCE ([id number])[facility] [place] (SBHLAB)[address] SEGMENTED NEUTROPHILS/100 LEUKOCYTES-CE 76 % Normal 38-82 [facility] Comment on above: Performed By: #### L [id number], [id number] ####Auger Operator: UNA ARCE ([phone])[facility] (SBHLAB)[address] STOMATOCYTES IN BLOOD BY LIGHT MICROSCOPY Slight Abnormal (none) [facility] Comment on above: Performed By: #### L [id number], [id number] ####Auger Operator: UNA ARCE ([phone])[facility] (SBHLAB)[address] UNCLASSIFIED CELLS TOTAL PER COUNTED LEUKOCYTES BY MANUAL COUNT Normal [facility] Comment on above: Performed By: #### L [id number], [id number] ####Auger Operator: UNA ARCE ([phone])[facility] (SBHLAB)[address] VARIANT LYMPHOCYTES TOTAL PER COUNTED LEUKOCYTES BY MANUAL COUNT Normal [facility] Comment on above: Performed By: #### L [id number], [id number] ####Auger Operator: UNA ARCE ([id number])[facility] (SBHLAB)[address] Magnesium [Mass/Vol]on 04-13 [facility] No Panel Informationon 04-13 Amount Of Oxygen 2 lpm [facility] alth Interpretation and review of laboratory results Abnormal [facility] Source Of Oxygen Nasal Cannula (LPM) [facility] Interpretation and review of laboratory results Normal [facility] Eosinophils Manual 2 High 0 - 1 [facility] Interpretation and review of laboratory results Abnormal [facility] Lymphocytes Manual 15 [facility] Monocytes Manual 7 [facility] Myelocytes Manual 1 [facility] ealth Neutrophils Manual 77 [facility] PHOSPHORUSon 04-13-2025 Phosphate [Mass/Vol] 2.9 mg/dL Normal 2.3-4.7 [facility] Comment on above: Performed By: #### L AB17, [id number], [id number] ####Auger Operator: UNA ARCE ([phone])[facility] (SBAB)[address] [place] [address] Phosphate [Moles/Vol]on Phosphate [Mass/Vol] 2.9 mg/dL 2.3 - 4 .7 mg/dL [facility] Progress Noteon 04-13-2025 [facility] Progress Note [facility] Note Normal [facility] Progress Note [facility] XR Chest Single viewon 04-13 Radiology Study observation (narrative) [facility] alth [id number] 04-12-2025 [id number] Normal [facility] [id number] Normal [facility] CBC W Auto Differential pane l (Bld)on 04-12-2025 Erythrocyte distribution width (RBC) [Ratio] 24.3 % High 11.5 - 15.0 % [facility] Hematocrit (Bld) [Volume fraction] 26.8 % Low 40.0 - 52.0 % [facility] Hemoglobin (Bld) [Mass/Vol] 7.4 g/dL Low 13.0 - 18.0 g/dL [facility] MCH (RBC) [Entitic mass] 23.1 pg Low 26. 0 - 34.0 pg [facility] MCHC (RBC) [Mass/Vol] 27.6 % Low 30.5 - 36.0 % [facility] MCV (RBC) [Entitic vol] 83.8 fL 77.0 - 99.0 fL [facility] Platelet mean volume (Bld) [Entitic vol] 9.3 fL 9.0 - 12.7 fL [facility] Platelets (Bld) [#/Vol] 272 10*3/uL 140 - 440 10*3/uL [facility] RBC (Bld) [#/Vol] 3.2 10*6/uL Low 4.40 - 5.9 0 10*6/uL [facility] WBC (Bld) [#/Vol] 12 10*3/uL High 3.6 - 10.7 10*3/uL [facility] CBC WITH AUTO DIFFERENTIALon 04-12-2025 Erythrocyte distribution width (RBC) [Ratio] 24.3 % High 11.5-15.0 [facility] Comment on above: Performed By: #### L [id number], [id number] ####Auger Operator: UNA ARCE ([phone])[facility] (SBHLAB)[address] Hematocrit (Bld) [Volume fraction] 26.8 % Low 40.0-52.0 [facility] Comment on above: Performed By: #### L [id number], [id number] ####Auger Operator: UNA ARCE ([phone])[facility] (SBAB)[address] Hemoglobin (Bld) [Mass/Vol] 7.4 g/dL Low 13.0-18.0 [facility] Comment on above: Performed By: #### L [id number], [id number] ####Auger Operator: UNA ARCE ([phone])[facility] (SBHLAB)[address] MCH (RBC) [Entitic mass] 23.1 pg Low 26.0-34.0 [facility] Comment on above: Performed By: #### L [id number], [id number] ####Auger Operator: UNA ARCE ([phone])[facility] (SBHLAB)[address] MCHC 27.6 % Low 30.5-36.0 [facility] Comment on above: Performed By: #### L [id number], [id number] ####Auger Operator: UNA ARCE ([phone])[facility] C[facility] (SBHLAB)[address] MCV (RBC) [Entitic vol] 83.8 fL Normal 77.0-99.0 [facility] Comment on above: Performed By: #### L [id number], [id number] ####Auger Operator: UNA ARCE ([phone])[facility] [place] (SBHLAB)[address] Platelet mean volume (Bld) [Entitic vol] 9.3 fL Normal 9.0-12.7 [facility] Comment on above: Performed By: #### L [id number], [id number] ####Auger Operator: UNA ARCE ([phone])[facility] [place] ([facility])[address] Platelets (Bld) [#/Vol] 272 10*3/uL Normal 140-440 [facility] Comment on above: Performed By: #### L [id number], [id number] ####Auger Operator: UNA ARCE ([phone])[facility] [place] ([facility])[address] RBC (Bld) [#/Vol] 3.20 10*6/uL Low 4.40-5.90 [facility] Comment on above: Performed By: #### L [id number], [id number] ####Auger Operator: UNA ARCE ([phone])[facility] [place] ([facility])[address] WBC (Bld) [#/Vol] 12.0 10*3/uL High 3.6-10.7 [facility] Comment on above: Performed By: #### L [id number], [id number] ####Auger Operator: UNA ARCE ([phone])[facility] [place] ([facility])[address] COMPREHENSIVE METABOLIC PANE Anant 04-12-2025 Albumin [Mass/Vol] 2.2 g/dL Low 3.4-4.8 [facility] Comment on above: Performed By: #### L AB17, [id number], [id number] ####Auger Operator: UNA ARCE ([phone])[facility] [place] (SB[facility])155 [place] [address] [place] ALP [Catalytic activity/Vol] 49 U/L Normal 40-150 [facility] Comment on above: Performed By: #### L AB17, [id number], [id number] ####Auger Operator: UNA ARCE ([phone])[facility] [place] (SBHLAB)155 [place] [address] [place] ALT [Catalytic activity/Vol] U/L Normal <40 [facility] Comment on above: Performed By: #### L AB17, [id number], [id number] ####Auger Operator: UNA ARCE ([phone])[facility] [place] ([facility])[address] Anion gap [Moles/Vol] 7 mmol/L Normal 3-13 [facility] Comment on above: Performed By: #### L AB17, BED858, [id number] ####Auger Operator: UNA ARCE ([phone])[facility] [place] ([facility])[address] AST [Catalytic activity/Vol] 19 U/L Normal <34 [facility] Comment on above: Performed By: #### L AB17, [id number], [id number] ####Auger Operator: UNA ARCE ([phone])[facility] [place] ([facility])[address] Bilirubin [Mass/Vol] 0.6 mg/dL Normal <1.2 [facility] Comment on above: Performed By: #### L AB17, JGL499, [id number] ####Auger Operator: UNA ARCE ([phone])[facility] [place] (SB[facility])[address] [place] [address] [place] Calcium [Mass/Vol] 7.9 mg/dL Low 8.8-10.0 [facility] Comment on above: Performed By: #### L AB17, BPE992, SQR314 ####Auger Operator: UAN ARCE ([phone])[facility] [place] ([facility])[address] [place] [address] [place] Chloride [Moles/Vol] 95 mmol/L Low 98-107 [facility] Comment on above: Performed By: #### L AB17, RRE191, SIW607 ####Auger Operator: UNA ARCE ([id number])[facility] ([facility])[address] CO2 [Moles/Vol] 37 mmol/L High 23-31 [facility] Comment on above: Performed By: #### L AB17, NJF826, [id number] ####Auger Operator: UNA ARCE ([phone])[facility] Creatinine [Mass/Vol] 1.53 mg/dL High 0.72-1.25 [facility] Comment on above: Performed By: #### Gilbert AHN17, ULA661, FZW149 ####Auger Operator: UNA ARCE ([phone])[facility] GLOMERULAR FILTRATION RATE ML/MIN/1.73 SQ M.PREDICTED 43.2 mL/min/1.73m*2 Low >60.0 [facility] Comment on above: Result Comment: Calc ulation based on the Chronic Kidney Disease Epidemiology Collaboration (CKD-EPI) equation refit without adjustment for race Performed By: #### L 17, NOH932, HUE810 ####Auger Operator: UNA ARCE ([phone])[facility] ([facility])[address] Glucose [Mass/Vol] 103 mg/dL Normal 82-115 [facility] Comment on above: Performed By: #### L AB17, YIZ453, DGM583 ####Auger Operator: UNA ARCE ([phone])[facility] ([facility])[address] Potassium [Moles/Vol] 3.7 mmol/L Normal 3.5-5.1 [facility] Comment on above: Result Comment: Plas ma potassium values may be up to 0.5 mmol/L lower than serum values. Performed By: #### L AB17, TRY872, RMC377 ####Auger Operator: UNA STAUFFERMELANIE ([phone])[facility] ([facility])[address] Protein [Mass/Vol] 5.6 g/dL Low 6.4-8.3 [facility] Comment on above: Performed By: #### L AB17, [id number], OMA485 ####Auger Operator: UNA ARCE ([phone])[facility] ([facility])[address] Sodium [Moles/Vol] 139 mmol/L Normal 136-145 [facility] Comment on above: Performed By: #### L AB17, [id number], JSS899 ####Auger Operator: UNA ARCE ([phone])[facility] ([facility])[address] Urea nitrogen [Mass/Vol] 40 mg/dL High 9-23 [facility] Comment on above: Performed By: #### L AB17, ALU073, [id number] ####Auger Operator: UNA BERMUDEZPEDRO ([phone])[facility] (SB[facility])[address] [place] [address] Comprehensive metabolic 1998 panelon 04-12-2025 Albumin [Mass/Vol] 2.2 g/dL Low 3.4 - 4.8 g/dL [facility] ALP [Catalytic activity/Vol] 49 U/L 40 - 150 U/L [facility] ALT [Catalytic activity/Vol] U/L NINF - 40 U/L [facility] Anion gap [Moles/Vol] 7 mmol/L 3 - 13 mmol/L [facility] AST [Catalytic activity/Vol] 19 U/L NINF - 34 U/L [facility] Bilirubin [Mass/Vol] 0.6 mg/dL NINF - 1.2 mg/dL [facility] Calcium [Mass/Vol] 7.9 mg/dL Low 8.8 - 10. 0 mg/dL [facility] Chloride [Moles/Vol] 95 mmol/L Low 98 - 10 7 mmol/L [facility] CO2 [Moles/Vol] 37 mmol/L High 23 - 31 mmol/L [facility] Creatinine [Mass/Vol] 1.53 mg/dL High 0.72 - 1.25 mg/dL [facility] GFR/1.73 sq M.predicted (S/P/Bld) [Vol rate/Area] 43.2 mL/min Low - PINF [facility] Glucose [Mass/Vol] 103 mg/dL 82 - 115 mg/dL [facility] Interpretation and review of laboratory results Abnormal [facility] Potassium [Moles/Vol] 3.7 mmol/L 3.5 - 5.1 mmol/L [facility] Protein [Mass/Vol] 5.6 g/dL Low 6.4 - 8.3 g/dL [facility] Sodium [Moles/Vol] 139 mmol/L 136 - 145 mmol/L [facility] Urea nitrogen [Mass/Vol] 40 mg/dL High 9 - 23 mg/d L [facility] Consulton 04-12-2025 Consult Normal [facility] Laboratory - Chemistry and C hemistry - challengeon 04-12-2025 Magnesium [Mass/Vol] 2.2 mg/dL 1.6 - 2 .6 mg/dL [facility] Laboratory - Hematology and Cell countson 04-12-2025 Anisocytosis Ql (Bld) Slight Abnormal (none) [facility] Band form neutrophils (Bld) [#/Vol] 0.1 10*3/uL High NINF - 0.0 10*3/uL [facility] Band form neutrophils/100 WBC (Bld) 1 % High NINF - 0 % [facility] Eosinophils (Bld) [#/Vol] 0.8 10*3/uL High 0.0 - 0.5 10*3/uL [facility] Eosinophils/100 WBC (Bld) 7 % High 0 - 6 % [facility] Lymphocytes (Bld) [#/Vol] 0.7 10*3/uL Low 1.0 - 4.3 10*3/uL [facility] Lymphocytes/100 WBC (Bld) 6 % Low 15 - 45 % [facility] Monocytes (Bld) [#/Vol] 0.5 10*3/uL 0.0 - 0.9 10*3/uL [facility] Monocytes/100 WBC (Bld) 4 % Low 5 - 13 % S [facility] Neutrophils (Bld) [#/Vol] 9.8 10*3/uL High 1.8 - 7.5 10*3/uL [facility] RBC morphology finding Nom (Bld) abnormal [facility] Segmented neutrophils/100 WBC (Bld) 81 % 38 - 82 % [facility] MAGNESIUMon 04-12-2025 Magnesium [Mass/Vol] 2.2 mg/dL Normal 1.6-2.6 [facility] Comment on above: Result Comment: YARELI [place] COMMENTS:Higher values can be expected in females during menses. Performed By: #### L AB17, AIC864, [id number] ####Auger Operator: UNA ARCE ([phone])[facility] [place] ([facility])[address] MANUAL DIFFERENTIAL (CELLAVI BANDAR)on 04-12-2025 ANISOCYTOSIS PRESENCE IN BLOOD BY LIGHT MICROSCOPY Slight Abnormal (none) [facility] Comment on above: Performed By: #### L [id number], [id number] ####Auger Operator: UNA ARCE ([phone])[facility] [place] ([facility])[address] BAND NEUTROPHILS TOTAL PER COUNTED LEUKOCYTES BY MANUAL COUNT 1 Normal [facility] Comment on above: Performed By: #### L [id number], [id number] ####Auger Operator: UNA ARCE ([phone])[facility] [place] ([facility])[address] BANDS (10*3/UL) IN BLOOD-CELLAVISION 0.1 10*3/uL High <=0.0 [facility] Comment on above: Performed By: #### L [id number], [id number] ####Auger Operator: UNA ARCE ([phone])[facility] [place] ([facility])[address] BASOPHILS TOTAL PER COUNTED LEUKOCYTES BY MANUAL COUNT Normal [facility] Comment on above: Performed By: #### L [id number], [id number] ####Auger Operator: UNA BERMUDEZPEDRO ([phone])[facility] [place] (SBHLAB)[address] [place] [address] [place] BLASTS TOTAL PER COUNTED LEUKOCYTES BY MANUAL COUNT Normal [facility] Comment on above: Performed By: #### L [id number], [id number] ####Auger Operator: UNA YAZMIN ([phone])[facility] [place] ([facility])[address] [place] [address] [place] EOSINOPHILS (10*3/UL) IN BLOOD-CELLAVISION 0.8 10*3/uL High 0.0-0.5 [facility] Comment on above: Performed By: #### L [id number], [id number] ####Auger Operator: UNA BERMUDEZPEDRO ([phone])[facility] [place] ([facility])[address] [place] [address] [place] EOSINOPHILS TOTAL PER COUNTED LEUKOCYTES BY MANUAL COUNT 7 High 0-1 [facility] Comment on above: Performed By: #### L [id number], [id number] ####Auger Operator: UNA BERMUDEZPEDRO ([phone])[facility] [place] ([facility])[address] [place] [address] [place] EOSINOPHILS/100 LEUKOCYTES IN BLOOD-CELLAVISION 7 % High 0-6 [facility] Comment on above: Performed By: #### L [id number], [id number] ####Auger Operator: UNA BERMUDEZPEDRO ([phone])[facility] [place] ([facility])[address] [place] [address] [place] LYMPHOCYTES (10*3/UL) IN BLOOD-CELLAVISION 0.7 10*3/uL Low 1.0-4.3 [facility] Comment on above: Performed By: #### L [id number], [id number] ####Auger Operator: UNA BERMUDEZPEDRO ([phone])[facility] [place] ([facility])[address] [place] [address] [place] LYMPHOCYTES TOTAL PER COUNTED LEUKOCYTES BY MANUAL COUNT 6 Normal [facility] Comment on above: Performed By: #### L [id number], [id number] ####Auger Operator: UNA ARCE ([phone])[facility] [place] (SBHLAB)[address] [place] [address] [place] LYMPHOCYTES/100 LEUKOCYTES IN BLOOD-CELLAVISION 6 % Low 15-45 [facility] Comment on above: Performed By: #### L [id number], [id number] ####Auger Operator: UNA ARCE ([phone])[facility] [place] (SB[facility])[address] [place] [address] [place] METAMYELOCYTES TOTAL PER COUNTED LEUKOCYTES BY MANUAL COUNT Normal [facility] Comment on above: Performed By: #### L [id number], [id number] ####Auger Operator: UNA BERMUDEZPEDRO ([phone])[facility] [place] (SB[facility])[address] [place] [address] [place] MONOCYTES (10*3/UL) IN BLOOD-CELLAVISION 0.5 10*3/uL Normal 0.0-0.9 [facility] Comment on above: Performed By: #### L [id number], [id number] ####Auger Operator: UNA ARCE ([id number])[facility] [place] ([facility])[address] [place] [address] [place] MONOCYTES TOTAL PER COUNTED LEUKOCYTES BY MANUAL COUNT 4 Normal [facility] Comment on above: Performed By: #### L [id number], [id number] ####Auger Operator: UNA ARCE ([phone])[facility] [place] ([facility])[address] [place] [address] [place] MONOCYTES/100 LEUKOCYTES IN BLOOD-LUCIANA 4 % Low 5-13 [facility] Comment on above: Performed By: #### L [id number], [id number] ####Auger Operator: UNA STAUFFERMELANIE ([phone])[facility] [place] (SB[facility])[address] [place] [address] [place] MYELOCYTES COUNTED BY MANUAL COUNT Normal [facility] Comment on above: Performed By: #### L [id number], [id number] ####Auger Operator: UAN YAZMIN ([phone])[facility] [place] (SBHLAB)[address] [place] [address] [place] NEUTROPHILS BAND FORM/100 LEUKOCYTES IN BLOOD-CELLAVISI 1 % High <=0 [facility] Comment on above: Performed By: #### L [id number], [id number] ####Auger Operator: UNA BERMUDEZPEDRO ([phone])[facility] [place] ([facility])[address] [place] [address] [place] NEUTROPHILS TOTAL PER COUNTED LEUKOCYTES BY MANUAL COUNT 83 Normal [facility] Comment on above: Performed By: #### L [id number], [id number] ####Auger Operator: UNA BERMUDEZPEDRO ([phone])[facility] [place] ([facility])[address] [place] [address] [place] PROMYELOCYTES TOTAL PER COUNTED LEUKOCYTES BY MANUAL COUNT [facility] Comment on above: Performed By: #### L [id number], [id number] ####Auger Operator: UNA BERMUDEZPEDRO ([phone])[facility] [place] (SB[facility])[address] [place] [address] [place] RBC MORPHOLOGY IN BLOOD abnormal Normal S [facility] Comment on above: Performed By: #### L [id number], [id number] ####Auger Operator: UNA STAUFFERMELANIE ([phone])[facility] [place] ([facility])[address] [place] [address] [place] SEGMENTED NEUTROPHILS (10*3/UL) IN BLOOD-CELLAVISION 9.8 10*3/uL High 1.8-7.5 [facility] Comment on above: Performed By: #### L [id number], [id number] ####Auger Operator: UNA ARCE ([phone])[facility] [place] ([facility])[address] [place] [address] [place] SEGMENTED NEUTROPHILS/100 LEUKOCYTES-CE 81 % Normal 38-82 [facility] Comment on above: Performed By: #### L [id number], [id number] ####Auger Operator: UNA ARCE ([phone])[facility] ([facility])[address] UNCLASSIFIED CELLS TOTAL PER COUNTED LEUKOCYTES BY MANUAL COUNT Normal [facility] Comment on above: Performed By: #### L [id number], [id number] ####Auger Operator: UNA ARCE ([phone])[facility] ([facility])[address] VARIANT LYMPHOCYTES TOTAL PER COUNTED LEUKOCYTES BY MANUAL COUNT Normal [facility] Comment on above: Performed By: #### L [id number], [id number] ####Auger Operator: UNA ARCE ([phone])[facility] [place] (SBHLAB)[address] Magnesium [Mass/Vol]on 04-12 [facility] No Panel Informationon 04-12 Bands Manual 1 [facility] Eosinophils Manual 7 High 0 - 1 [facility] Interpretation and review of laboratory results Abnormal [facility] Lymphocytes Manual 6 [facility] Monocytes Manual 4 [facility] alth Neutrophils Manual 83 [facility] Interpretation and review of laboratory results Normal [facility] PHOSPHORUSon 04-12-2025 Phosphate [Mass/Vol] 2.7 mg/dL Normal 2.3-4.7 [facility] Comment on above: Performed By: #### L AB17, [id number], [id number] ####Auger Operator: UNA ARCE ([phone])[facility] (SB[facility])[address] [place] [address] [place] Phosphate [Moles/Vol]on Phosphate [Mass/Vol] 2.7 mg/dL 2.3 - 4 .7 mg/dL [facility] Progress Noteon 04-12-2025 Progress Note Normal [facility] Progress Note Normal [facility] Progress Note Normal [facility] Progress Note Normal [facility] CBC W Auto Differential pane l (Bld)on 04-11-2025 Erythrocyte distribution width (RBC) [Ratio] 24.2 % High 11.5 - 15.0 % [facility] Hematocrit (Bld) [Volume fraction] 28.9 % Low 40.0 - 52.0 % [facility] Hemoglobin (Bld) [Mass/Vol] 7.9 g/dL Low 13.0 - 18.0 g/dL [facility] Interpretation and review of laboratory results Abnormal [facility] MCH (RBC) [Entitic mass] 22.7 pg Low 26. 0 - 34.0 pg [facility] MCHC (RBC) [Mass/Vol] 27.3 % Low 30.5 - 36.0 % [facility] MCV (RBC) [Entitic vol] 83 fL 77.0 - 99.0 fL [facility] Platelet mean volume (Bld) [Entitic vol] 9.2 fL 9.0 - 12.7 fL [facility] Platelets (Bld) [#/Vol] 313 10*3/uL 140 - 440 10*3/uL [facility] RBC (Bld) [#/Vol] 3.48 10*6/uL Low 4.40 - 5.9 0 10*6/uL [facility] WBC (Bld) [#/Vol] 13.8 10*3/uL High 3.6 - 10.7 10*3/uL [facility] CBC WITH AUTO DIFFERENTIALon 04-11-2025 Erythrocyte distribution width (RBC) [Ratio] 24.2 % High 11.5-15.0 [facility] Comment on above: Performed By: #### L [id number], [id number] ####Auger Operator: UNA ARCE ([phone])[facility] ([facility])[address] [place] [address] Hematocrit (Bld) [Volume fraction] 28.9 % Low 40.0-52.0 [facility] Comment on above: Performed By: #### L [id number], [id number] ####Auger Operator: UNA ARCE ([phone])[facility] ([facility])[address] Hemoglobin (Bld) [Mass/Vol] 7.9 g/dL Low 13.0-18.0 [facility] Comment on above: Performed By: #### L [id number], [id number] ####Auger Operator: UNA ARCE ([phone])[facility]IN[facility] (SBHLAB)[address] MCH (RBC) [Entitic mass] 22.7 pg Low 26.0-34.0 [facility] Comment on above: Performed By: #### L [id number], [id number] ####Auger Operator: UNA ARCE ([phone])[facility]ENTERAngel [facility] (SB[facility])[address] MCHC 27.3 % Low 30.5-36.0 [facility] Comment on above: Performed By: #### L [id number], [id number] ####Auger Operator: UNA ARCE ([id number])[facility]ENTER[facility] SANCHEZCHRISTINAN (SBHLAB)[address] MCV (RBC) [Entitic vol] 83.0 fL Normal 77.0-99.0 [facility] Comment on above: Performed By: #### L [id number], [id number] ####Auger Operator: UNA ARCE ([phone])[facility] ([facility])[address] Platelet mean volume (Bld) [Entitic vol] 9.2 fL Normal 9.0-12.7 [facility] Comment on above: Performed By: #### L [id number], [id number] ####Auger Operator: UNA ARCE ([phone])[facility] ([facility])[address] Platelets (Bld) [#/Vol] 313 10*3/uL Normal 140-440 [facility] Comment on above: Performed By: #### L [id number], [id number] ####Auger Operator: UNA ARCE ([phone])[facility] ([facility])[address] RBC (Bld) [#/Vol] 3.48 10*6/uL Low 4.40-5.90 [facility] Comment on above: Performed By: #### L [id number], [id number] ####Auger Operator: UNA ARCE ([phone])[facility] [place] ([facility])[address] WBC (Bld) [#/Vol] 13.8 10*3/uL High 3.6-10.7 [facility] Comment on above: Performed By: #### L [id number], [id number] ####Auger Operator: UNA ARCE ([phone])[facility]ENTERAngel BASHIRMarisol ([facility])[address] COMPREHENSIVE METABOLIC PANE Anant 04-11-2025 Albumin [Mass/Vol] 2.4 g/dL Low 3.4-4.8 [facility] Comment on above: Performed By: #### L AB17, [id number], [id number] ####Auger Operator: UNA ARCE ([phone])[facility] S[facility]HEZLUIS (SB[facility])[address] ALP [Catalytic activity/Vol] 53 U/L Normal 40-150 [facility] Comment on above: Performed By: #### L AB17, EHE868, QRS183 ####Auger Operator: UNA ARCE ([phone])[facility] ([facility])[address] ALT [Catalytic activity/Vol] U/L Normal <40 [facility] Comment on above: Performed By: #### L AB17, [id number], [id number] ####Auger Operator: UNA ARCE ([phone])[facility]ENTERAngel [facility]ITALMarisol ([facility])[address] Anion gap [Moles/Vol] 10 mmol/L Normal 3-13 [facility] Comment on above: Performed By: #### L AB17, SBI539, [id number] ####Auger Operator: UNA ARCE ([phone])LYNETTE BASHIRN (SBHLAB)[address] [place] [address] [place] AST [Catalytic activity/Vol] 18 U/L Normal <34 [facility] Comment on above: Performed By: #### L AB17, [id number], VWO917 ####Auger Operator: UNA ARCE ([phone])[facility] BASHIRN ([facility])[address] Bilirubin [Mass/Vol] 0.7 mg/dL Normal <1.2 [facility] Comment on above: Performed By: #### L AB17, KJG953, [id number] ####Auger Operator: UNA ARCE ([phone])[facility]Angel BASHIRN ([facility])[address] Calcium [Mass/Vol] 8.1 mg/dL Low 8.8-10.0 [facility] Comment on above: Performed By: #### L AB17, QKY741, CAU518 ####Auger Operator: UNA ARCE ([phone])[facility] BASHIRN ([facility])[address] [place] [address] [place] Chloride [Moles/Vol] 94 mmol/L Low 98-107 [facility] Comment on above: Performed By: #### L AB17, RBR166, KEP189 ####Auger Operator: UNA ARCE ([id number])[facility] BASHIRN ([facility])[address] [place] [address] [place] CO2 [Moles/Vol] 35 mmol/L High 23-31 [facility] Comment on above: Performed By: #### L AB17, [id number], MKU026 ####Auger Operator: UNA ARCE ([phone])[facility] [place] ([facility])[address] [place] [address] [place] Creatinine [Mass/Vol] 1.55 mg/dL High 0.72-1.25 [facility] Comment on above: Performed By: #### L AB17, OBH558, [id number] ####Auger Operator: UNA ARCE ([phone])[facility]ENTERAngel [facility] ([facility])[address] GLOMERULAR FILTRATION RATE ML/MIN/1.73 SQ M.PREDICTED 42.5 mL/min/1.73m*2 Low >60.0 [facility] Comment on above: Result Comment: Calc ulation based on the Chronic Kidney Disease Epidemiology Collaboration (CKD-EPI) equation refit without adjustment for race Performed By: #### L AB17, [id number], [id number] ####Auger Operator: UNA ARCE ([phone])[facility] ([facility])[address] Glucose [Mass/Vol] 103 mg/dL Normal 82-115 [facility] Comment on above: Performed By: #### L AB17, FBY974, SEP311 ####Auger Operator: UNA ARCE ([phone])[facility] ([facility])[address] Potassium [Moles/Vol] 3.6 mmol/L Normal 3.5-5.1 [facility] Comment on above: Result Comment: [facility] potassium values may be up to 0.5 mmol/L lower than serum values. Performed By: #### L AB17, [id number], [id number] ####Auger Operator: UNA ARCE ([phone])[facility] ([facility])[address] [place] [address] [place] Protein [Mass/Vol] 6.1 g/dL Low 6.4-8.3 [facility] Comment on above: Performed By: #### L AB17, [id number], [id number] ####Auger Operator: UNA ARCE ([phone])[facility] ([facility])[address] Sodium [Moles/Vol] 139 mmol/L Normal 136-145 [facility] Comment on above: Performed By: #### L AB17, [id number], [id number] ####Auger Operator: UNA ARCE ([phone])[facility] ([facility])[address] Urea nitrogen [Mass/Vol] 36 mg/dL High 9-23 [facility] Comment on above: Performed By: #### L AB17, [id number], [id number] ####Auger Operator: UNA ARCE ([phone])[facility] [facility] (SBHLAB)[address] Comprehensive metabolic 1998 panelon 04-11-2025 Albumin [Mass/Vol] 2.4 g/dL Low 3.4 - 4.8 g/dL [facility] ALP [Catalytic activity/Vol] 53 U/L 40 - 150 U/L [facility] ALT [Catalytic activity/Vol] U/L NINF - 40 U/L [facility] Anion gap [Moles/Vol] 10 mmol/L 3 - 13 mmol/L [facility] AST [Catalytic activity/Vol] 18 U[facility]L [facility] Bilirubin [Mass/Vol] 0.7 mg/dL NINF - 1.2 mg/dL [facility] Calcium [Mass/Vol] 8.1 mg/dL Low 8.8 - 10. 0 mg/dL [facility] Chloride [Moles/Vol] 94 mmol/L Low 98 - 10 7 mmol/L [facility] CO2 [Moles/Vol] 35 mmol/L High 23 - 31 mmol/L [facility] Creatinine [Mass/Vol] 1.55 mg/dL High 0.72 - 1.25 mg/dL [facility] GFR/1.73 sq M.predicted (S/P/Bld) [Vol rate/Area] 42.5 mL/min Low - PINF [facility] Glucose [Mass/Vol] 103 mg/dL 82 - 115 mg/dL [facility] Interpretation and review of laboratory results Abnormal [facility] Potassium [Moles/Vol] 3.6 mmol/L 3.5 - 5.1 mmol/L [facility] Protein [Mass/Vol] 6.1 g/dL Low 6.4 - 8.3 g/dL [facility] Sodium [Moles/Vol] 139 mmol/L 136 - 145 mmol/L [facility] Urea nitrogen [Mass/Vol] 36 mg/dL High 9 - 23 mg/d L [facility] Laboratory - Chemistry and C hemistry - challengeon 04-11-2025 Magnesium [Mass/Vol] 1.7 mg/dL 1.6 - 2 .6 mg/dL [facility] Laboratory - Hematology and Cell countson 04-11-2025 Anisocytosis Ql (Bld) Moderate Abnormal (none) [facility] Basophilic stippling LM Ql (Bld) Slight Abnormal (none) [facility] Basophils (Bld) [#/Vol] 0.1 10*3/uL 0.0 - 0.2 10*3/uL [facility] Basophils/100 WBC (Bld) 1 % 0 - 2 % S [facility] Dacrocytes LM Ql (Bld) Rare Abnormal (none) [facility] Eosinophils (Bld) [#/Vol] 0.1 10*3/uL 0.0 - 0.5 10*3/uL [facility] Eosinophils/100 WBC (Bld) 1 % 0 - 6 % [facility] Hypochromia Ql (Bld) Slight Abnormal (none) [facility] Lymphocytes (Bld) [#/Vol] 1.4 10*3/uL 1.0 - 4.3 10*3/uL [facility] Lymphocytes/100 WBC (Bld) 10 % Low 15 - 45 % [facility] Monocytes (Bld) [#/Vol] 1.8 10*3/uL High 0.0 - 0.9 10*3/uL [facility] Monocytes/100 WBC (Bld) 13 % 5 - 13 % S [facility] Neutrophils (Bld) [#/Vol] 10.5 10*3/uL High 1.8 - 7.5 10*3/uL [facility] Ovalocytes LM Ql (Bld) Slight Abnormal (none) [facility] Poikilocytosis LM Ql (Bld) Slight Abnormal (none) [facility] Polychromasia LM Ql (Bld) Slight Abnormal (none) [facility] RBC morphology finding Nom (Bld) abnormal [facility] Segmented neutrophils/100 WBC (Bld) 76 % 38 - 82 % [facility] Stomatocytes LM Ql (Bld) Slight Abnormal (none) [facility] Target cells LM Ql (Bld) Slight Abnormal (none) [facility] MAGNESIUMon 04-11-2025 Magnesium [Mass/Vol] 1.7 mg/dL Normal 1.6-2.6 [facility] Comment on above: Result Comment: ORDE R COMMENTS:Higher values can be expected in females during menses. Performed By: #### L [id number], [id number], [id number] ####Auger Operator: UNA ARCE ([phone])[facility] [place] (SBHLAB)[address] MANUAL DIFFERENTIAL (CELLAVI BANDAR)on 04-11-2025 ANISOCYTOSIS PRESENCE IN BLOOD BY LIGHT MICROSCOPY Moderate Abnormal (none) [facility] Comment on above: Performed By: #### L [id number], [id number] ####Auger Operator: UNA ARCE ([phone])[facility] [place] (SBHLAB)[address] BAND NEUTROPHILS TOTAL PER COUNTED LEUKOCYTES BY MANUAL COUNT Normal [facility] Comment on above: Performed By: #### L [id number], [id number] ####Auger Operator: UNA ARCE ([phone])[facility] [place] (SBHLAB)[address] BASOPHILIC STIPPLING PRESENCE IN BLOOD BY LIGHT MICROSCOPY Slight Abnormal (none) [facility] Comment on above: Performed By: #### L [id number], [id number] ####Auger Operator: UNA ARCE ([phone])[facility] [place] (SBHLAB)[address] BASOPHILS (10*3/UL) IN BLOOD-CELLAVISION 0.1 10*3/uL Normal 0.0-0.2 [facility] Comment on above: Performed By: #### L [id number], [id number] ####Auger Operator: UNA ARCE ([phone])[facility] [place] (SBHLAB)[address] BASOPHILS TOTAL PER COUNTED LEUKOCYTES BY MANUAL COUNT 1 Normal [facility] Comment on above: Performed By: #### L [id number], [id number] ####Auger Operator: UNA ARCE ([phone])[facility] [place] (SBHLAB)[address] [place] [address] [place] BASOPHILS/100 LEUKOCYTES IN BLOOD-CELLAVISION 1 % Normal 0-2 [facility] Comment on above: Performed By: #### L [id number], [id number] ####Auger Operator: UNA ARCE ([phone])[facility] [place] (SBHLAB)[address] [place] [address] [place] BLASTS TOTAL PER COUNTED LEUKOCYTES BY MANUAL COUNT Normal [facility] Comment on above: Performed By: #### L [id number], [id number] ####Auger Operator: UNA MOHRCER ([phone])[facility] [place] (SBHLAB)[address] [place] [address] [place] DACROCYTES PRESENCE IN BLOOD BY LIGHT MICROSCOPY Rare Abnormal (none) [facility] Comment on above: Performed By: #### L [id number], [id number] ####Auger Operator: UNA ARCE ([phone])[facility] [place] (SBHLAB)[address] [place] [address] [place] EOSINOPHILS (10*3/UL) IN BLOOD-CELLAVISION 0.1 10*3/uL Normal 0.0-0.5 [facility] Comment on above: Performed By: #### L [id number], [id number] ####Auger Operator: UNA ARCE ([phone])[facility] [place] (SBHLAB)[address] [place] [address] [place] EOSINOPHILS TOTAL PER COUNTED LEUKOCYTES BY MANUAL COUNT 1 Normal 0-1 [facility] Comment on above: Performed By: #### L [id number], [id number] ####Auger Operator: UNA ARCE ([phone])[facility] [place] (SBHLAB)[address] [place] [address] [place] EOSINOPHILS/100 LEUKOCYTES IN BLOOD-CELLAVISION 1 % Normal 0-6 [facility] Comment on above: Performed By: #### L [id number], [id number] ####Auger Operator: UNA ARCE ([phone])[facility] [place] (SBHLAB)[address] HYPOCHROMIA (PRESENCE) IN BLOOD BY LIGHT MICROSCOPY Slight Abnormal (none) [facility] Comment on above: Performed By: #### L [id number], [id number] ####Auger Operator: UNA ARCE ([phone])[facility] [place] (SBHLAB)[address] [place] [address] [place] LYMPHOCYTES (10*3/UL) IN BLOOD-CELLAVISION 1.4 10*3/uL Normal 1.0-4.3 [facility] Comment on above: Performed By: #### L [id number], [id number] ####Auger Operator: UNA ARCE ([phone])[facility] [place] (SBHLAB)[address] LYMPHOCYTES TOTAL PER COUNTED LEUKOCYTES BY MANUAL COUNT 10 Normal [facility] Comment on above: Performed By: #### L [id number], [id number] ####Auger Operator: UNA ARCE ([phone])[facility] (SBHLAB)[address] [place] [address] [place] LYMPHOCYTES/100 LEUKOCYTES IN BLOOD-CELLAVISION 10 % Low 15-45 [facility] Comment on above: Performed By: #### L [id number], [id number] ####Auger Operator: UNA ARCE ([phone])[facility] (SBHLAB)[address] [place] [address] [place] METAMYELOCYTES TOTAL PER COUNTED LEUKOCYTES BY MANUAL COUNT Normal [facility] Comment on above: Performed By: #### L [id number], [id number] ####Auger Operator: UNA ARCE ([phone])[facility] [place] (SBHLAB)[address] [place] [address] [place] MONOCYTES (10*3/UL) IN BLOOD-CELLAVISION 1.8 10*3/uL High 0.0-0.9 [facility] Comment on above: Performed By: #### L [id number], [id number] ####Auger Operator: UNA ARCE ([phone])[facility] [place] (SBHLAB)[address] [place] [address] [place] MONOCYTES TOTAL PER COUNTED LEUKOCYTES BY MANUAL COUNT 13 Normal [facility] Comment on above: Performed By: #### L [id number], [id number] ####Auger Operator: UNA MOHRCER ([phone])[facility] [place] (SBHLAB)[address] [place] [address] [place] MONOCYTES/100 LEUKOCYTES IN BLOOD-LUCIANA 13 % Normal 5-13 [facility] Comment on above: Performed By: #### L [id number], [id number] ####Auger Operator: UNA MOHRCER ([phone])[facility] [place] (SBHLAB)[address] MYELOCYTES COUNTED BY MANUAL COUNT Normal [facility] Comment on above: Performed By: #### L [id number], [id number] ####Auger Operator: UNA ARCE ([phone])[facility] [place] (SBHLAB)[address] [place] [address] [place] NEUTROPHILS TOTAL PER COUNTED LEUKOCYTES BY MANUAL COUNT 79 Normal [facility] Comment on above: Performed By: #### L [id number], [id number] ####Auger Operator: UNA ARCE ([phone])[facility] [place] (SBHLAB)[address] [place] [address] [place] OVALOCYTES PRESENCE IN BLOOD BY LIGHT MICROSCOPY Slight Abnormal (none) [facility] Comment on above: Performed By: #### L [id number], [id number] ####Auger Operator: UNA MOHRCER ([phone])[facility] [place] (SBHLAB)[address] [place] [address] [place] POIKILOCYTOSIS (PRESENCE) IN BLOOD BY LIGHT MICROSCOPY Slight Abnormal (none) [facility] Comment on above: Performed By: #### L [id number], [id number] ####Auger Operator: UNA ARCE ([phone])[facility] [place] (SBHLAB)[address] [place] [address] [place] POLYCHROMASIA IN BLOOD BY LIGHT MICROSCOPY Slight Abnormal (none) [facility] Comment on above: Performed By: #### L [id number], [id number] ####Auger Operator: UNA ARCE ([phone])[facility] [place] (SBHLAB)[address] [place] [address] [place] PROMYELOCYTES TOTAL PER COUNTED LEUKOCYTES BY MANUAL COUNT Normal [facility] Comment on above: Performed By: #### L [id number], [id number] ####Auger Operator: UNA ARCE ([phone])[facility] [place] (SBHLAB)[address] [place] [address] [place] RBC MORPHOLOGY IN BLOOD abnormal Normal S [facility] Comment on above: Performed By: #### L [id number], [id number] ####Auger Operator: UNA ARCE ([phone])[facility] [place] (SBHLAB)[address] [place] [address] [place] SEGMENTED NEUTROPHILS (10*3/UL) IN BLOOD-CELLAVISION 10.5 10*3/uL High 1.8-7.5 [facility] Comment on above: Performed By: #### L [id number], [id number] ####Auger Operator: UNA ARCE ([phone])[facility] [place] (SBHLAB)[address] [place] [address] [place] SEGMENTED NEUTROPHILS/100 LEUKOCYTES-CE 76 % Normal 38-82 [facility] Comment on above: Performed By: #### L [id number], [id number] ####Auger Operator: UNA ARCE ([phone])[facility] [place] (SBHLAB)[address] [place] [address] [place] STOMATOCYTES IN BLOOD BY LIGHT MICROSCOPY Slight Abnormal (none) [facility] Comment on above: Performed By: #### L [id number], [id number] ####Auger Operator: UNA ARCE ([phone])[facility] [place] (SBHLAB)[address] TARGET CELLS IN BLOOD BY LIGHT MICROSCOPY Slight Abnormal (none) [facility] Comment on above: Performed By: #### L [id number], [id number] ####Auger Operator: UNA ARCE ([phone])[facility] [place] (SBHLAB)[address] UNCLASSIFIED CELLS TOTAL PER COUNTED LEUKOCYTES BY MANUAL COUNT Normal [facility] Comment on above: Performed By: #### L [id number], [id number] ####Auger Operator: UNA ARCE ([phone])[facility] [place] (SBHLAB)[address] VARIANT LYMPHOCYTES TOTAL PER COUNTED LEUKOCYTES BY MANUAL COUNT Normal [facility] Comment on above: Performed By: #### L [id number], [id number] ####Auger Operator: UNA ARCE ([phone])[facility] (SBHLAB)[address] Magnesium [Mass/Vol]on 04-11 [facility] No Panel Informationon 04-11 Basophils Manual 1 [facility]th Eosinophils Manual 1 0 - 1 [facility] Interpretation and review of laboratory results Abnormal [facility] Lymphocytes Manual 10 [facility] Monocytes Manual 13 [facility] alth Neutrophils Manual 79 [facility] Interpretation and review of laboratory results Normal [facility] PHOSPHORUSon 04-11-2025 Phosphate [Mass/Vol] 2.5 mg/dL Normal 2.3-4.7 [facility] Comment on above: Performed By: #### L [id number], [id number], [id number] ####Auger Operator: UNA ARCE ([phone])[facility] LAURACHRISTINAN (SBHLAB)[address] [place] [address] [place] Phosphate [Moles/Vol]on Phosphate [Mass/Vol] 2.5 mg/dL 2.3 - 4 .7 mg/dL [facility] Progress Noteon 04-11-2025 Progress [facility] Progress Note Normal [facility] Progress Note Normal [facility] XR Chest Single viewon 04-11 [facility] Radiology Study observation (narrative) Lynette ander XR Chest Single viewOrdered By: Katalina Corona on 04-11-2025 [facility] Work Phone: [phone] [id number] Normal [facility] CBC W Auto Differential pane l (Bld)on 04-10-2025 Erythrocyte distribution width (RBC) [Ratio] 22.9 % High 11.5 - 15.0 % [facility] Hematocrit (Bld) [Volume fraction] 26.1 % Low 40.0 - 52.0 % [facility] Hemoglobin (Bld) [Mass/Vol] 7.2 g/dL Low 13.0 - 18.0 g/dL [facility] Interpretation and review of laboratory results Abnormal [facility] MCH (RBC) [Entitic mass] 22.6 pg Low 26. 0 - 34.0 pg [facility] MCHC (RBC) [Mass/Vol] 27.6 % Low 30.5 - 36.0 % [facility] MCV (RBC) [Entitic vol] 82.1 fL 77.0 - 99.0 fL [facility] Platelet mean volume (Bld) [Entitic vol] 9.1 fL 9.0 - 12.7 fL [facility] Platelets (Bld) [#/Vol] 294 10*3/uL 140 - 440 10*3/uL [facility] RBC (Bld) [#/Vol] 3.18 10*6/uL Low 4.40 - 5.9 0 10*6/uL [facility] WBC (Bld) [#/Vol] 12.4 10*3/uL High 3.6 - 10.7 10*3/uL [facility] CBC WITH AUTO DIFFERENTIALon 04-10-2025 Erythrocyte distribution width (RBC) [Ratio] 22.9 % High 11.5-15.0 [facility] Comment on above: Performed By: #### L [id number], [id number] ####Auger Operator: UNA ARCE ([phone])[facility] [place] (SBAB)[address] Hematocrit (Bld) [Volume fraction] 26.1 % Low 40.0-52.0 [facility] Comment on above: Performed By: #### L [id number], [id number] ####Auger Operator: UNA ARCE ([phone])[place]NETTE [place] (SBHLAB)[address] Hemoglobin (Bld) [Mass/Vol] 7.2 g/dL Low 13.0-18.0 [facility] Comment on above: Performed By: #### L [id number], [id number] ####Auger Operator: UNA ARCE ([phone])[facility] [place] (SBHLAB)[address] MCH (RBC) [Entitic mass] 22.6 pg Low 26.0-34.0 [facility] Comment on above: Performed By: #### L [id number], [id number] ####Auger Operator: UNA ARCE ([phone])[facility] [place] (SBHLAB)[address] MCHC 27.6 % Low 30.5-36.0 [facility] Comment on above: Performed By: #### L [id number], [id number] ####Auger Operator: UNA ARCE ([phone])[facility] [place] (SBHLAB)[address] MCV (RBC) [Entitic vol] 82.1 fL Normal 77.0-99.0 [facility] Comment on above: Performed By: #### L [id number], [id number] ####Auger Operator: UNA ARCE ([phone])[facility]ENTERAngel [facility] HOSPITALMarisol (SBHLAB)[address] Platelet mean volume (Bld) [Entitic vol] 9.1 fL Normal 9.0-12.7 [facility] Comment on above: Performed By: #### L [id number], [id number] ####Auger Operator: UNA ARCE ([phone])LYNETTE SANCHEZCHRISTINAN (SBHLAB)[address] Platelets (Bld) [#/Vol] 294 10*3/uL Normal 140-440 [facility] Comment on above: Performed By: #### L [id number], [id number] ####Auger Operator: UNA ARCE ([phone])[facility] [place]AYN (SBHLAB)[address] RBC (Bld) [#/Vol] 3.18 10*6/uL Low 4.40-5.90 [facility] Comment on above: Performed By: #### L [id number], [id number] ####Auger Operator: UNA ARCE ([phone])[place] (SBHLAB)[address] WBC (Bld) [#/Vol] 12.4 10*3/uL High 3.6-10.7 [facility] Comment on above: Performed By: #### L [id number], [id number] ####Auger Operator: UNA ARCE ([phone])[facility] BASHIRN (SBHLAB)[address] COMPREHENSIVE METABOLIC PANE Anant 04-10-2025 Albumin [Mass/Vol] 2.2 g/dL Low 3.4-4.8 [facility] Comment on above: Performed By: #### L ABTerrance, LAB17, [id number] ####Auger Operator: UNA ARCE ([phone])[facility] [place] (SBHLAB)[address] ALP [Catalytic activity/Vol] 50 U/L Normal 40-150 [facility] Comment on above: Performed By: #### L AB113, LAB17, [id number] ####Auger Operator: UNA ARCE ([phone])[facility] [place] (SBHLAB)[address] ALT [Catalytic activity/Vol] U/L Normal <40 [facility] Comment on above: Performed By: #### L ABTerrance, LAB17, [id number] ####Auger Operator: UNA ARCE ([phone])[facility] [place] (SBHLAB)[address] Anion gap [Moles/Vol] 12 mmol/L Normal 3-13 [facility] Comment on above: Performed By: #### Gilbert ABTerrance, LAB17, [id number] ####Auger Operator: UNA ARCE ([phone])[facility] [place] (SBHLAB)[address] AST [Catalytic activity/Vol] 16 U/L Normal <34 [facility] Comment on above: Performed By: #### Gilbert ABTerrance, LAB17, [id number] ####Auger Operator: UNA ARCE ([phone])[facility] [place] (SBHLAB)[address] Bilirubin [Mass/Vol] 0.6 mg/dL Normal <1.2 [facility] Comment on above: Performed By: #### Gilbert RAMSEY, LAB17, [id number] ####Auger Operator: UNA ARCE ([phone])[facility] [place] (SBHLAB)[address] Calcium [Mass/Vol] 8.0 mg/dL Low 8.8-10.0 [facility] Comment on above: Performed By: #### Gilbert RAMSEY, LAB17, [id number] ####Auger Operator: UNA ARCE ([phone])[facility] [place] (SBHLAB)[address] [place] [address] [place] Chloride [Moles/Vol] 95 mmol/L Low 98-107 [facility] Comment on above: Performed By: #### L ABTerrance, LAB17, [id number] ####Auger Operator: UNA ARCE ([phone])[facility] [place] (SBHLAB)[address] [place] [address] [place] CO2 [Moles/Vol] 35 mmol/L High 23-31 [facility] Comment on above: Performed By: #### L AB113, LAB17, [id number] ####Auger Operator: UNA ARCE ([phone])[facility]ENTER[facility] BASHIRN (SBHLAB)[address] Creatinine [Mass/Vol] 1.65 mg/dL High 0.72-1.25 [facility] Comment on above: Performed By: #### L ABTerrance, LAB17, [id number] ####Auger Operator: UNA ARCE ([phone])[facility] BASHIRN (SBHLAB)[address] GLOMERULAR FILTRATION RATE ML/MIN/1.73 SQ M.PREDICTED 39.4 mL/min/1.73m*2 Low >60.0 [facility] Comment on above: Result Comment: Calc ulation based on the Chronic Kidney Disease Epidemiology Collaboration (CKD-EPI) equation refit without adjustment for race Performed By: #### Gilbert ABTerrance, LAB17, [id number] ####Auger Operator: UNA ARCE ([phone])[facility] [place] (SBHLAB)[address] Glucose [Mass/Vol] 98 mg/dL Normal 82-115 [facility] Comment on above: Performed By: #### Gilbert AB113, LAB17, [id number] ####Auger Operator: UNA ARCE ([phone])[facility] SANCHEZCHRISTINAN (SBHLAB)[address] [place] [address] [place] Potassium [Moles/Vol] 3.2 mmol/L Low 3.5-5.1 [facility] Comment on above: Result Comment: [facility] potassium values may be up to 0.5 mmol/L lower than serum values. Performed By: #### L AB113, LAB17, [id number] ####Auger Operator: UNA ARCE ([phone])[facility]ENTERAngle [place] (SBHLAB)[address] Protein [Mass/Vol] 5.5 g/dL Low 6.4-8.3 [facility] Comment on above: Performed By: #### L AB113, LAB17, [id number] ####Auger Operator: UNA YAZMIN ([phone])[facility]ENTER[facility] [place] (SBHLAB)[address] Sodium [Moles/Vol] 142 mmol/L Normal 136-145 [facility] Comment on above: Performed By: #### Gilbert ABTerrance, LAB17, [id number] ####Auger Operator: UNA YAZMIN ([phone])[facility]Angel [facility] (SBHLAB)[address] Urea nitrogen [Mass/Vol] 32 mg/dL High 9-23 [facility] Comment on above: Performed By: #### Gilbert RAMSEY, LAB17, [id number] ####Auger Operator: UNA ARCE ([phone])[facility]ENTER[facility] (SBHLAB)[address] Comprehensive metabolic 1998 panelon 04-10-2025 Albumin [Mass/Vol] 2.2 g/dL Low 3.4 - 4.8 g/dL [facility] ALP [Catalytic activity/Vol] 50 U/L 40 - 150 U/L [facility] ALT [Catalytic activity/Vol] U/L [facility] U/L [facility] Anion gap [Moles/Vol] 12 mmol/L 3 - 13 mmol/L [facility] AST [Catalytic activity/Vol] 16 U/L [facility] - 34 U/L [facility] Bilirubin [Mass/Vol] 0.6 mg/dL NINF - 1.2 mg/dL [facility] Calcium [Mass/Vol] 8 mg/dL Low 8.8 - 10. 0 mg/dL [facility] Chloride [Moles/Vol] 95 mmol/L Low 98 - 10 7 mmol/L [facility] CO2 [Moles/Vol] 35 mmol/L High 23 - 31 mmol/L [facility] Creatinine [Mass/Vol] 1.65 mg/dL High 0.72 - 1.25 mg/dL [facility] GFR/1.73 sq M.predicted (S/P/Bld) [Vol rate/Area] 39.4 mL/min Low - PINF [facility] Glucose [Mass/Vol] 98 mg/dL 82 - 115 mg/dL [facility] Interpretation and review of laboratory results Abnormal [facility] Potassium [Moles/Vol] 3.2 mmol/L Low 3.5 - 5.1 mmol/L [facility] Protein [Mass/Vol] 5.5 g/dL Low 6.4 - 8.3 g/dL [facility] Sodium [Moles/Vol] 142 mmol/L 136 - 145 mmol/L [facility] Urea nitrogen [Mass/Vol] 32 mg/dL High 9 - 23 mg/d L [facility] Laboratory - Chemistry and C hemistry - challengeon 04-10-2025 Magnesium [Mass/Vol] 1.7 mg/dL 1.6 - 2 .6 mg/dL [facility] Laboratory - Hematology and Cell countson 04-10-2025 Anisocytosis Ql (Bld) Slight Abnormal (none) [facility] Band form neutrophils (Bld) [#/Vol] 0.2 10*3/uL High NINF - 0.0 10*3/uL [facility] Band form neutrophils/100 WBC (Bld) 2 % High NINF - 0 % [facility] Basophils (Bld) [#/Vol] 0.5 10*3/uL High 0.0 - 0.2 10*3/uL [facility] Basophils/100 WBC (Bld) 4 % High 0 - 2 % [facility] Eosinophils (Bld) [#/Vol] 0.5 10*3/uL 0.0 - 0.5 10*3/uL [facility] Eosinophils/100 WBC (Bld) 4 % 0 - 6 % [facility] Lymphocytes (Bld) [#/Vol] 0.9 10*3/uL Low 1.0 - 4.3 10*3/uL [facility] Lymphocytes/100 WBC (Bld) 7 % Low 15 - 45 % [facility] Monocytes (Bld) [#/Vol] 0.5 10*3/uL 0.0 - 0.9 10*3/uL [facility] Monocytes/100 WBC (Bld) 4 % Low 5 - 13 % S [facility] Myelocytes (Bld) [#/Vol] 0.1 10*3/uL High SELENE F - 0.0 10*3/uL [facility] Myelocytes/100 WBC (Bld) 1 % High NINF - 0 % [facility] Neutrophils (Bld) [#/Vol] 9.9 10*3/uL High 1.8 - 7.5 10*3/uL [facility] Poikilocytosis LM Ql (Bld) Slight Abnormal (none) [facility] RBC morphology finding Nom (Bld) abnormal [facility] Segmented neutrophils/100 WBC (Bld) 78 % 38 - 82 % [facility] Stomatocytes LM Ql (Bld) Moderate Abnormal (none) [facility] MAGNESIUMon 04-10-2025 Magnesium [Mass/Vol] 1.7 mg/dL Normal 1.6-2.6 [facility] Comment on above: Result Comment: YARELI R COMMENTS:Higher values can be expected in females during menses. Performed By: #### L [id number], LAB17, [id number] ####Auger Operator: UNA ARCE ([phone])[facility] ([facility])[address] [place] [address] MANUAL DIFFERENTIAL (CELLAVI BANDAR)on 04-10-2025 ANISOCYTOSIS PRESENCE IN BLOOD BY LIGHT MICROSCOPY Slight Abnormal (none) [facility] Comment on above: Performed By: #### L [id number], [id number] ####Auger Operator: UNA ARCE ([phone])[facility] [place] [address] BAND NEUTROPHILS TOTAL PER COUNTED LEUKOCYTES BY MANUAL COUNT 2 Normal [facility] Comment on above: Performed By: #### L [id number], [id number] ####Auger Operator: UNA ARCE ([phone])[facility] ([facility] [place] [address] [place] BANDS (10*3/UL) IN BLOOD-CELLAVISION 0.2 10*3/uL High <=0.0 [facility] Comment on above: Performed By: #### L [id number], [id number] ####Auger Operator: UNA ARCE ([phone])[facility] ([facility])[address] [place] [address] [place] BASOPHILS (10*3/UL) IN BLOOD-CELLAVISION 0.5 10*3/uL High 0.0-0.2 [facility] Comment on above: Performed By: #### L [id number], [id number] ####Auger Operator: UNA ARCE ([phone])[facility] [place] ([facility])[address] [place] [address] [place] BASOPHILS TOTAL PER COUNTED LEUKOCYTES BY MANUAL COUNT 4 Normal [facility] Comment on above: Performed By: #### L [id number], [id number] ####Auger Operator: UNA ARCE ([phone])[facility] [place] ([facility])[address] [place] [address] [place] BASOPHILS/100 LEUKOCYTES IN BLOOD-CELLAVISION 4 % High 0-2 [facility] Comment on above: Performed By: #### L [id number], [id number] ####Auger Operator: UNA ARCE ([phone])[facility] [place] (SB[facility])[address] BLASTS TOTAL PER COUNTED LEUKOCYTES BY MANUAL COUNT [facility] Comment on above: Performed By: #### L [id number], [id number] ####Auger Operator: UNA ARCE ([phone])[facility] [place] ([facility])[address] [place] [address] [place] EOSINOPHILS (10*3/UL) IN BLOOD-CELLAVISION 0.5 10*3/uL Normal 0.0-0.5 [facility] Comment on above: Performed By: #### L [id number], [id number] ####Auger Operator: UNA ARCE ([phone])[facility] [place] ([facility])[address] [place] [address] [place] EOSINOPHILS TOTAL PER COUNTED LEUKOCYTES BY MANUAL COUNT High 0-1 [facility] Comment on above: Performed By: #### L [id number], [id number] ####Auger Operator: UNA ARCE ([phone])[facility] [place] (SB[facility])[address] [place] [address] [place] EOSINOPHILS/100 LEUKOCYTES IN BLOOD-CELLAVISION 4 % Normal 0-6 [facility] Comment on above: Performed By: #### L [id number], [id number] ####Auger Operator: UNA ARCE ([phone])[facility] [place] ([facility])[address] LYMPHOCYTES (10*3/UL) IN BLOOD-CELLAVISION 0.9 10*3/uL Low 1.0-4.3 [facility] Comment on above: Performed By: #### L [id number], [id number] ####Auger Operator: UNA ARCE ([phone])[facility] [place] (SB[facility])[address] LYMPHOCYTES TOTAL PER COUNTED LEUKOCYTES BY MANUAL COUNT 7 Normal [facility] Comment on above: Performed By: #### L [id number], [id number] ####Auger Operator: UNA ARCE ([phone])[facility] [place] ([facility])[address] [place] [address] [place] LYMPHOCYTES/100 LEUKOCYTES IN BLOOD-CELLAVISION 7 % Low 15-45 [facility] Comment on above: Performed By: #### L [id number], [id number] ####Auger Operator: UNA ARCE ([phone])[facility] ([facility])[address] METAMYELOCYTES TOTAL PER COUNTED LEUKOCYTES BY MANUAL COUNT [facility] Comment on above: Performed By: #### L [id number], [id number] ####Auger Operator: UNA ARCE ([phone])[facility] [place] ([facility])[address] [place] [address] [place] MONOCYTES (10*3/UL) IN BLOOD-CELLAVISION 0.5 10*3/uL Normal 0.0-0.9 [facility] Comment on above: Performed By: #### L [id number], [id number] ####Auger Operator: UNA ARCE ([phone])[facility] [place] ([facility])[address] [place] [address] [place] MONOCYTES TOTAL PER COUNTED LEUKOCYTES BY MANUAL COUNT 4 Normal [facility] Comment on above: Performed By: #### L [id number], [id number] ####Auger Operator: UNA ARCE ([phone])[facility] [place] ([facility])[address] [place] [address] [place] MONOCYTES/100 LEUKOCYTES IN BLOOD-LUCIANA 4 % Low 5-13 [facility] Comment on above: Performed By: #### L [id number], [id number] ####Auger Operator: UNA ARCE ([phone])[facility] [place] ([facility])[address] [place] [address] [place] MYELOCYTES (10*3/UL) IN BLOOD-CELLAVISION 0.1 10*3/uL High <=0.0 [facility] Comment on above: Performed By: #### L [id number], [id number] ####Auger Operator: UNA ARCE ([phone])[facility] [place] ([facility])[address] [place] [address] [place] MYELOCYTES COUNTED BY MANUAL COUNT 1 Normal [facility] Comment on above: Performed By: #### L [id number], [id number] ####Auger Operator: UNA ARCE ([phone])[facility] [place] ([facility])[address] [place] [address] [place] MYELOCYTES/100 LEUKOCYTES IN BLOOD-CELLAVISION 1 % High <=0 [facility] Comment on above: Performed By: #### L [id number], [id number] ####Auger Operator: UNA ARCE ([phone])[facility] [place] ([facility])[address] [place] [address] [place] NEUTROPHILS BAND FORM/100 LEUKOCYTES IN BLOOD-CELLAVISI 2 % High <=0 [facility] Comment on above: Performed By: #### L [id number], [id number] ####Auger Operator: UNA ARCE ([phone])[facility] [place] ([facility])[address] [place] [address] [place] NEUTROPHILS TOTAL PER COUNTED LEUKOCYTES BY MANUAL COUNT 79 Normal [facility] Comment on above: Performed By: #### L [id number], [id number] ####Auger Operator: UNA ARCE ([phone])[facility] [place] ([facility])[address] [place] [address] [place] POIKILOCYTOSIS (PRESENCE) IN BLOOD BY LIGHT MICROSCOPY Slight Abnormal (none) [facility] Comment on above: Performed By: #### L [id number], [id number] ####Auger Operator: UNA ARCE ([phone])[facility] [place] ([facility])[address] PROMYELOCYTES TOTAL PER COUNTED LEUKOCYTES BY MANUAL COUNT Normal [facility] Comment on above: Performed By: #### L [id number], [id number] ####Auger Operator: UNA ARCE ([phone])[facility] [place] ([facility])[address] [place] [address] [place] RBC MORPHOLOGY IN BLOOD abnormal Normal S [facility] Comment on above: Performed By: #### L [id number], [id number] ####Auger Operator: UNA ARCE ([phone])[facility] [place] ([facility])[address] [place] [address] [place] SEGMENTED NEUTROPHILS (10*3/UL) IN BLOOD-CELLAVISION 9.9 10*3/uL High 1.8-7.5 [facility] Comment on above: Performed By: #### L [id number], [id number] ####Auger Operator: UNA ARCE ([phone])[facility] [place] ([facility])[address] [place] [address] [place] SEGMENTED NEUTROPHILS/100 LEUKOCYTES-CE 78 % Normal 38-82 [facility] Comment on above: Performed By: #### L [id number], [id number] ####Auger Operator: UNA ARCE ([phone])[facility] [place] ([facility])[address] [place] [address] [place] STOMATOCYTES IN BLOOD BY LIGHT MICROSCOPY Moderate Abnormal (none) [facility] Comment on above: Performed By: #### L [id number], [id number] ####Auger Operator: UNA ARCE ([phone])[facility]ENTERAngel [facility] ([facility])[address] UNCLASSIFIED CELLS TOTAL PER COUNTED LEUKOCYTES BY MANUAL COUNT Normal [facility] Comment on above: Performed By: #### L [id number], [id number] ####Auger Operator: UNA ARCE ([phone])[facility] (HL[facility])[address] VARIANT LYMPHOCYTES TOTAL PER COUNTED LEUKOCYTES BY MANUAL COUNT Normal [facility] Comment on above: Performed By: #### L [id number], [id number] ####Auger Operator: UNA ARCE ([phone])[facility] ([facility])[address] [place] [address] [place] Magnesium [Mass/Vol]on 04-10 [facility] No Panel Informationon 04-10 Bands Manual 2 [facility] Basophils Manual 4 [facility] Eosinophils Manual 4 High 0 - 1 [facility] Interpretation and review of laboratory results Abnormal [facility] Lymphocytes Manual 7 [facility] Monocytes Manual 4 [facility] Myelocytes Manual 1 [facility] H ealth Neutrophils Manual 79 [facility] Interpretation and review of laboratory results Normal [facility] PHOSPHORUSon 04-10-2025 Phosphate [Mass/Vol] 2.6 mg/dL Normal 2.3-4.7 [facility] Comment on above: Performed By: #### L AB113, LAB17, [id number] ####Auger Operator: UNA ARCE ([phone])[facility] ([facility])[address] [place] [address] [place] Phosphate [Moles/Vol]on Phosphate [Mass/Vol] 2.6 mg/dL 2.3 - 4 .7 mg/dL [facility] Progress Noteon 04-10-2025 Progress Note [facility] Progress Note Normal [facility] Progress Note Will assume care as patient is being transferred out of ICU. D/w Dr Lewis via secure chat Normal [facility] Progress Note Normal [facility] Progress Note Normal [facility] [id number] 04-09-2025 [id number] Normal [facility] [id number] Normal [facility] BODY FLUID CELL COUNT WITH R EFLEX DIFFon 04-09-2025 RBC, BODY FLUID (AUTOMATED) <0.002 High 0.000 [facility] Comment on above: Performed By: #### L [id number], [id number] ####Auger Operator: UNA ARCE ([phone])[facility] ([facility])[address] [place] [address] WBC, BODY FLUID (AUTOMATED) 0.341 x10*3/ul High <=0.005 [facility] Comment on above: Performed By: #### L [id number], [id number] ####Auger Operator: UNA ARCE ([phone])[facility] (SB[facility])[address] [place] [address] RBC, BODY FLUID (AUTOMATED) <0.002 High 0.000 [facility] Comment on above: Performed By: #### L [id number], [id number] ####Auger Operator: UNA ARCE ([phone])[facility] ([facility])[address] [place] [address] WBC, BODY FLUID (AUTOMATED) 0.112 x10*3/ul High <=0.005 [facility] Comment on above: Performed By: #### L [id number], [id number] ####Auger Operator: UNA ARCE ([phone])[facility] (SB[facility])[address] [place] [address] BODY FLUID DIFFERENTIALon CELLS COUNTED TOTAL (#) IN BODY FLUID 100 Normal [facility] Comment on above: Performed By: #### L [id number], [id number] ####Auger Operator: UNA ARCE ([phone])[facility] [place] ([facility])[address] [place] [address] [place] LYMPHOCYTES/100 LEUKOCYTES IN BODY FLUID BY MAN CT 51 % Normal [facility] Comment on above: Performed By: #### L [id number], [id number] ####Auger Operator: UNA ARCE ([phone])[facility] [place] ([facility])[address] [place] [address] [place] MONOCYTES+MACROPHAGES/10 0 WBC IN BODY FLUID BY MAN CT 36 % Normal [facility] Comment on above: Performed By: #### L [id number], [id number] ####Auger Operator: UNA ARCE ([phone])[facility] [place] ([facility])[address] [place] [address] [place] Neutrophils/100 WBC (Bld) 13 % Normal [facility] Comment on above: Performed By: #### L [id number], [id number] ####Auger Operator: UNA ARCE ([phone])[facility] [place] ([facility])[address] [place] [address] [place] CELLS COUNTED TOTAL (#) IN BODY FLUID 100 Normal [facility] Comment on above: Performed By: #### L [id number], [id number] ####Auger Operator: UNA ARCE ([phone])[facility] [place] ([facility])[address] [place] [address] [place] LYMPHOCYTES/100 LEUKOCYTES IN BODY FLUID BY MAN CT 31 % Normal [facility] Comment on above: Performed By: #### L [id number], [id number] ####Auger Operator: UNA ARCE ([phone])[facility] [place] ([facility])[address] [place] [address] [place] MESOTHELIAL CELLS/100 LEUKOCYTES IN BODY FLUID BY MANUAL COUNT 2 % Normal [facility] Comment on above: Performed By: #### L [id number], [id number] ####Auger Operator: UNA ARCE ([phone])[facility] [place] ([facility])[address] MONOCYTES+MACROPHAGES/10 0 WBC IN BODY FLUID BY MAN CT 37 % Normal [facility] Comment on above: Performed By: #### L [id number], [id number] ####Auger Operator: UNA ARCE ([phone])[facility] ([facility])[address] Neutrophils/100 WBC (Bld) 30 % Normal [facility] Comment on above: Performed By: #### L [id number], [id number] ####Auger Operator: UNA ARCE ([phone])[facility] ([facility])[address] CBC W Auto Differential pane l (Bld)Ordered By: Jg Sarabia on 04-09-2025 Erythrocyte distribution width (RBC) [Ratio] 21.8 % High 11.5 - 15.0 % [employer] Hematocrit (Bld) [Volume fraction] 27.7 % Low 40.0 - 52.0 % [facility] [employer] Hemoglobin (Bld) [Mass/Vol] 7.5 g/dL Low 13.0 - 18.0 g/dL [facility] [employer] MCH (RBC) [Entitic mass] 22.6 pg Low 26. 0 - 34.0 pg [facility] [employer] MCHC (RBC) [Mass/Vol] 27.1 % Low 30.5 - 36.0 % [facility] MCV (RBC) [Entitic vol] 83.4 fL 77.0 - 99.0 fL [facility] [employer] Platelet mean volume (Bld) [Entitic vol] 9.4 fL 9.0 - 12.7 fL [facility] [employer] Platelets (Bld) [#/Vol] 279 10*3/uL 140 - 440 10*3/uL [facility] [employer] RBC (Bld) [#/Vol] 3.32 10*6/uL Low 4.40 - 5.9 0 10*6/uL [facility] [employer] WBC (Bld) [#/Vol] 11.2 10*3/uL High 3.6 - 10.7 10*3/uL [facility] [employer] CBC WITH AUTO DIFFERENTIALon 04-09-2025 Erythrocyte distribution width (RBC) [Ratio] 21.8 % High 11.5-15.0 [facility] Comment on above: Performed By: #### L [id number], [id number] ####Auger Operator: UNA ARCE ([phone])LYNETTE SANCHEZLUIS (SBHLAB)[address] Hematocrit (Bld) [Volume fraction] 27.7 % Low 40.0-52.0 [facility] Comment on above: Performed By: #### L [id number], [id number] ####Auger Operator: UNA ARCE ([phone])[facility] CENTERAngel [facility]ENTERMar[facility] (SB[facility])[address] Hemoglobin (Bld) [Mass/Vol] 7.5 g/dL Low 13.0-18.0 [facility] Comment on above: Performed By: #### L [id number], [id number] ####Auger Operator: UNA ARCE ([phone])[facility]ENTERAngel SANCHEZCHRISTINAN (SBHLAB)[address] MCH (RBC) [Entitic mass] 22.6 pg Low 26.0-34.0 [facility] Comment on above: Performed By: #### L [id number], [id number] ####Auger Operator: UNA ARCE ([phone])[facility]ENTERAngel SANCHEZHOL[facility]OSPITALMarisol (SB[facility]AB)[address] MCHC 27.1 % Low 30.5-36.0 [facility] Comment on above: Performed By: #### L [id number], [id number] ####Auger Operator: UNA ARCE ([phone])[facility]ENTERAngel [facility] (SB[facility])[address] MCV (RBC) [Entitic vol] 83.4 fL Normal 77.0-99.0 S [facility] Comment on above: Performed By: #### L [id number], [id number] ####Auger Operator: UNA ARCE ([phone])[facility]ENTERA LAURACHRISTINAN (SBHLAB)[address] Platelet mean volume (Bld) [Entitic vol] 9.4 fL Normal 9.0-12.7 [facility] Comment on above: Performed By: #### L [id number], [id number] ####Auger Operator: UNA ARCE ([phone])MONISHAA MCKAYN (SBHLAB)[address] Platelets (Bld) [#/Vol] 279 10*3/uL Normal 140-440 [facility] Comment on above: Performed By: #### L [id number], [id number] ####Auger Operator: UNA ARCE ([phone])[facility]A MCKAYN (SB[facility])[address] RBC (Bld) [#/Vol] 3.32 10*6/uL Low 4.40-5.90 [facility] Comment on above: Performed By: #### L [id number], [id number] ####Auger Operator: UNA ARCE ([phone])[facility]ENTERAngel [facility] ([facility])[address] WBC (Bld) [#/Vol] 11.2 10*3/uL High 3.6-10.7 [facility] Comment on above: Performed By: #### L [id number], [id number] ####Auger Operator: UNA ARCE ([phone])[facility]A [facility]BHOL[facility]N (SB[facility])[address] COMPREHENSIVE METABOLIC PANE Anant 04-09-2025 Albumin [Mass/Vol] 2.2 g/dL Low 3.4-4.8 [facility] Comment on above: Performed By: #### L AB103, [id number], LAB17 ####Auger Operator: UNA ARCE ([phone])[facility] (SB[facility])[address] ALP [Catalytic activity/Vol] 56 U/L Normal 40-150 [facility] Comment on above: Performed By: #### L AB103, [id number], LAB17 ####Auger Operator: UNA ARCE ([phone])[facility]ENTERAngel ESCOTO (SB[facility])[address] ALT [Catalytic activity/Vol] U/L Normal <40 [facility] Comment on above: Performed By: #### L AB103, VXC499, LAB17 ####Auger Operator: UNA ARCE ([phone])[facility]ENTERAngel [facility]N (SB[facility])[address] Anion gap [Moles/Vol] 10 mmol/L Normal 3-13 [facility] Comment on above: Performed By: #### L AB103, [id number], LAB17 ####Auger Operator: UNA ARCE ([phone])[facility] ([facility])[address] AST [Catalytic activity/Vol] 18 U/L Normal <34 [facility] Comment on above: Performed By: #### L AB103, QVV622, LAB17 ####Auger Operator: UNA ARCE ([phone])[facility] ([facility])[address] Bilirubin [Mass/Vol] 0.7 mg/dL Normal <1.2 [facility] Comment on above: Performed By: #### L AB103, [id number], LAB17 ####Auger Operator: UNA ARCE ([phone])[facility] ([facility])[address] Calcium [Mass/Vol] 8.1 mg/dL Low 8.8-10.0 [facility] Comment on above: Performed By: #### L AB103, LEE099, LAB17 ####Auger Operator: UNA ARCE ([phone])[facility]ENTERAngel [facility]N (SB[facility])[address] Chloride [Moles/Vol] 98 mmol/L Normal 98-107 [facility] Comment on above: Performed By: #### L AB103, [id number], LAB17 ####Auger Operator: UNA YAZMIN ([phone])[facility] ([facility])[address] CO2 [Moles/Vol] 34 mmol/L High 23-31 [facility] Comment on above: Performed By: #### L AB103, VHE696, LAB17 ####Auger Operator: UNA BERMUDEZPEDRO ([phone])[facility] ([facility])[address] Creatinine [Mass/Vol] 1.53 mg/dL High 0.72-1.25 [facility] Comment on above: Performed By: #### L AB103, WJZ231, LAB17 ####Auger Operator: UNA BERMUDEZPEDRO ([phone])[facility] ([facility])[address] GLOMERULAR FILTRATION RATE ML/MIN/1.73 SQ M.PREDICTED 43.2 mL/min/1.73m*2 Low >60.0 [facility] Comment on above: Result Comment: Calc ulation based on the Chronic Kidney Disease Epidemiology Collaboration (CKD-EPI) equation refit without adjustment for race Performed By: #### L AB103, UGP919, LAB17 ####Auger Operator: UNA STAUFFERMELANIE ([phone])[facility] ([facility])[address] Glucose [Mass/Vol] 90 mg/dL Normal 82-115 [facility] Comment on above: Performed By: #### L AB103, [id number], LAB17 ####Auger Operator: UNA BERMUDEZPEDRO ([phone])[facility] ([facility])[address] Potassium [Moles/Vol] 3.5 mmol/L Normal 3.5-5.1 [facility] Comment on above: Result Comment: [facility] potassium values may be up to 0.5 mmol/L lower than serum values. Performed By: #### L AB103, [id number], LAB17 ####Auger Operator: UNAANJEL ARCE ([phone])[facility]ENTERAngel [place] (SB[facility]AB)[address] [place] [address] Protein [Mass/Vol] 5.7 g/dL Low 6.4-8.3 [facility] Comment on above: Performed By: #### L AB103, OVU689, LAB17 ####Auger Operator: UNA YAZMIN ([phone])[facility]ENTERAngel [place] ([facility])[address] Sodium [Moles/Vol] 142 mmol/L Normal 136-145 [facility] Comment on above: Performed By: #### L AB103, WJN111, LAB17 ####Auger Operator: UNAANJEL ARCE ([id number])[facility]ENTERAngel [place] ([facility])[address] [place] [address] Urea nitrogen [Mass/Vol] 25 mg/dL High 9-23 [facility] Comment on above: Performed By: #### L AB103, UGH194, LAB17 ####Auger Operator: UNA YAZMIN ([phone])[facility]ENTERAngel [place] (SB[facility])[address] [place] [address] CULTURE ANAEROBICon 04-09-20 CULTURE ANAEROBIC Normal [facility] Comment on above: Performed By: #### L AB233 ####Auger Operator: ANAHY AVILA ([phone])[facility] ([facility])[address] [place] [address] CULTURE ANAEROBIC Normal [facility] Comment on above: Performed By: #### L AB233 ####Auger Operator: ANAHY AVILA ([phone])[address] CULTURE, AEROBIC BACTERIA WI TH GRAM STAINon 04-09-2025 CULTURE, AEROBIC BACTERIA WITH GRAM STAIN [facility] Comment on above: Performed By: #### L [id number] ####Auger Operator: ANAHY AVILA ([phone])[facility] ([facility])[address] [place] [address] CULTURE, AEROBIC BACTERIA WITH GRAM STAIN Normal [facility] Comment on above: Performed By: #### L [id number] ####Auger Operator: ANAHY AVILA ([phone])[facility] ([facility])[address] [place] [address] Comprehensive metabolic 1998 panelon 04-09-2025 Albumin [Mass/Vol] 2.2 g/dL Low 3.4 - 4.8 g/dL [facility] ALP [Catalytic activity/Vol] 56 U/L 40 - 150 U/L [facility] ALT [Catalytic activity/Vol] U/L NINF - 40 U/L [facility] Anion gap [Moles/Vol] 10 mmol/L 3 - 13 mmol/L [facility] AST [Catalytic activity/Vol] 18 U/L [facility] CENTERF - 34 U/L [facility] Bilirubin [Mass/Vol] 0.7 mg/dL NINF - 1.2 mg/dL [facility] Calcium [Mass/Vol] 8.1 mg/dL Low 8.8 - 10. 0 mg/dL [facility] Chloride [Moles/Vol] 98 mmol/L 98 - 10 7 mmol/L [facility] CO2 [Moles/Vol] 34 mmol/L High 23 - 31 mmol/L [facility] Creatinine [Mass/Vol] 1.53 mg/dL High 0.72 - 1.25 mg/dL [facility] GFR/1.73 sq M.predicted (S/P/Bld) [Vol rate/Area] 43.2 mL/min Low - PINF [facility] Glucose [Mass/Vol] 90 mg/dL 82 - 115 mg/dL [facility] Interpretation and review of laboratory results Abnormal [facility] Potassium [Moles/Vol] 3.5 mmol/L 3.5 - 5.1 mmol/L [facility] Protein [Mass/Vol] 5.7 g/dL Low 6.4 - 8.3 g/dL [facility] Sodium [Moles/Vol] 142 mmol/L 136 - 145 mmol/L [facility] Urea nitrogen [Mass/Vol] 25 mg/dL High 9 - 23 mg/d L [facility] Consulton 04-09-2025 Consult Normal [facility] GLUCOSE, BODY FLUIDon 2024 GLUCOSE, BODY FLUID 132 mg/dL Normal [facility] Comment on above: Performed By: #### L [id number], [id number], [id number], [id number] ####Auger Operator: ANAHY AVILA ([phone])[facility] ([facility])[address] [place] [address] GLUCOSE, BODY FLUID 92 mg/dL Normal [facility] Comment on above: Performed By: #### L AB196, [id number], [id number], [id number] ####Auger Operator: ANAHY AVILA ([phone])[facility] ([facility])[address] [place] [address] LACTATE DEHYDROGENASEon LDH [Catalytic activity/Vol] 181 U/L Normal 125-220 [facility] Comment on above: Performed By: #### L AB118, LAB96 ####Auger Operator: UNA ARCE ([phone])[facility] ([id number] LACTATE DEHYDROGENASE, BODY FLUIDon 04-09-2025 LACTATE DEHYDROGENASE, BODY FLUID BY LAC->PYR 95 U/L Normal [facility] Comment on above: Performed By: #### L AB188, WLQ562, FIR715, GBQ005 ####Auger Operator: ANAHY AVILA ([phone])[facility] ([facility])[address] [place] [address] LACTATE DEHYDROGENASE, BODY FLUID BY LAC->PYR 95 U/L Normal [facility] Comment on above: Performed By: #### L AB196, XID873, XPM690, [id number] ####Auger Operator: ANAHY AVILA ([phone])[facility])[address] [place] [address] TYPE OF BODY FLUID Pleural Fluid Normal [facility] Comment on above: Result Comment: YARELI [place] COMMENTS:This test was developed and its performance characteristics determined by [facility]. It has not been cleared or approved by the US Food and Drug Administration. This test was performed in a CLIA certified laboratory and is intended for clinical purposes.Exudates are defined as meeting one of the following criteria: (a) Pleural fytqm-iv-dpwix protein ratio of >0.5, (b) pleural aomqd-ns-wqren LDH ratio of >0.6, or (c)a pleural fluid LDH activity that is >2/3 the upper limit of a normal serum LDH activity (Light???s criteria). Performed By: #### L AB196, [id number], UXJ635, MYQ752 ####Auger Operator: ANAHY AVILA ([phone])[facility] ([facility])[address] [place] [address] Result Comment: ORDE R COMMENTS:This test was developed and its performance characteristics determined by [facility]. It has not been cleared or approved [...] developed and its performance characteristics determined by [employer]. It has not been cleared or approved by the US Food and Drug Administration. This test was performed in a CLIA certified laboratory and is intended for clinical purposes.Pleural xiwbl-hk-kuqog protein ratio of >0.5 is one of Light???s criteria for an exudate. Heart failure associated misclassifications (by Light???s criteria) may be differentiated as transudative effusions by subsequently evaluating a zqxul-rp-bjkgnqu albumin gradient (>1.2 g/dL) and/or a ocyoz-dw-gljob protein gradient (>3.1 g/dL). Result Comment: ORDE R COMMENTS:This test was developed and its performance characteristics determined by [facility]. It has not been cleared or approved by the US Food and Drug Administration. This test was performed in a CLIA certified laboratory and is intended for clinical purposes. Performed By: #### L [id number], [id number] ####Auger Operator: UNA ARCE ([phone])[facility] ([facility])[address] [place] [address] LDH Lactate to pyruvate reac tion [Catalytic activity/Vol]on 04-09-2025 Interpretation and review of laboratory results Normal [facility] Laboratoryon 04-09-2025 Fluid Nom (Body fld) Pleural Fluid S [facility] Fluid Nom (Body fld) Pleural Fluid S [facility] Fluid Nom (Body fld) Pleural Fluid S [facility] Fluid Nom (Body fld) Pleural Fluid S [facility] Fluid Nom (Body fld) Pleural Fluid S [facility] Fluid Nom (Body fld) Pleural Fluid S [facility] Fluid Nom (Body fld) Pleural Fluid S [facility] LaboratoryOrdered By: Anne cadena on 04-09-2025 Fluid Nom (Body fld) Pleural Fluid S [facility] LaboratoryOrdered By: Rian Spann on 04-09-2025 Fluid Nom (Body fld) Pleural Fluid S [facility] Laboratory - Chemistry and C hemistry - challengeon 04-09-2025 LDH (Body fld) [Catalytic activity/Vol] 95 U/L [facility] Glucose (Body fld) [Mass/Vol] 132 mg/dL [facility] Protein (Body fld) [Mass/Vol] 2.3 g/dL [facility] pH (Body fld) 7.747 [pH] [facility] pH (Body fld) 7.688 [pH] [facility] Protein (Body fld) [Mass/Vol] 2.5 g/dL [facility] Glucose (Body fld) [Mass/Vol] 92 mg/dL [facility] LDH Lactate to pyruvate reaction [Catalytic activity/Vol] 181 U/L 125 - 220 U/L [facility] Protein [Mass/Vol] 5.9 g/dL Low 6.4 - 8.3 g/dL [facility] Magnesium [Mass/Vol] 1.7 mg/dL 1.6 - 2 .6 mg/dL [facility] Laboratory - Chemistry and C hemistry - challengeOrdered By: Anne Miles on 04-09-2025 LDH (Body fld) [Catalytic activity/Vol] 95 U/L [facility] Laboratory - Hematology and Cell countson 04-09-2025 Cells Counted Total (Body fld) [#] 100 [facility] Lymphocytes/100 WBC (Bld) 51 % [facility] Macrophages/100 WBC Manual cnt (Body fld) 36 % [facility] Neutrophils/100 WBC (Body fld) 13 % [facility] RBC Auto (Body fld) [#/Vol] High [facility] WBC (Body fld) [#/Vol] 0.341 10*3/uL High NINF [facility] Cells Counted Total (Body fld) [#] 100 [facility] Lymphocytes/100 WBC (Bld) 31 % [facility] Macrophages/100 WBC Manual cnt (Body fld) 37 % [facility] Mesothelial cells/100 WBC Manual cnt (Body fld) 2 % [facility] Neutrophils/100 WBC (Body fld) 30 % [facility] Anisocytosis Ql (Bld) Moderate Abnormal (none) [facility] Eosinophils (Bld) [#/Vol] 0.6 10*3/uL High 0.0 - 0.5 10*3/uL [facility] Eosinophils/100 WBC (Bld) 5 % 0 - 6 % [facility] Hypochromia Ql (Bld) Moderate Abnormal (none) [facility] Lymphocytes (Bld) [#/Vol] 0.8 10*3/uL Low 1.0 - 4.3 10*3/uL [facility] Lymphocytes/100 WBC (Bld) 7 % Low 15 - 45 % [facility] Monocytes (Bld) [#/Vol] 2 10*3/uL High 0.0 - 0.9 10*3/uL [facility] Monocytes/100 WBC (Bld) 18 % High 5 - 13 % [facility] Neutrophils (Bld) [#/Vol] 8 10*3/uL High 1.8 - 7.5 10*3/uL [facility] Poikilocytosis LM Ql (Bld) Slight Abnormal (none) [facility] Polychromasia LM Ql (Bld) Slight Abnormal (none) [facility] RBC morphology finding Nom (Bld) abnormal [facility] Segmented neutrophils/100 WBC (Bld) 71 % 38 - 82 % [facility] Stomatocytes LM Ql (Bld) Moderate Abnormal (none) [facility] Laboratory - Hematology and Cell countsOrdered By: Kyara Valles on 04-09-2025 RBC Auto (Body fld) [#/Vol] High [facility] WBC (Body fld) [#/Vol] 0.112 10*3/uL High NINF [facility] MAGNESIUMon 04-09-2025 Magnesium [Mass/Vol] 1.7 mg/dL Normal 1.6-2.6 [facility] Comment on above: Result Comment: YARELI [place] COMMENTS:Higher values can be expected in females during menses. Performed By: #### L [id number], [id number], LAB17 ####Auger Operator: UNA ARCE ([phone])[facility] [place] ([facility])[address] MANUAL DIFFERENTIAL (CELLAVI BANDAR)on 04-09-2025 ANISOCYTOSIS PRESENCE IN BLOOD BY LIGHT MICROSCOPY Moderate Abnormal (none) [facility] Comment on above: Performed By: #### L [id number], [id number] ####Auger Operator: UNA ARCE ([id number])[facility] [place] ([facility])[address] BAND NEUTROPHILS TOTAL PER COUNTED LEUKOCYTES BY MANUAL COUNT Normal [facility] Comment on above: Performed By: #### L [id number], [id number] ####Auger Operator: UNA ARCE ([id number])[facility] [place] ([facility])[address] BASOPHILS TOTAL PER COUNTED LEUKOCYTES BY MANUAL COUNT Normal [facility] Comment on above: Performed By: #### L [id number], [id number] ####Auger Operator: UNA ARCE ([id number])[facility] [place] ([facility])[address] BLASTS TOTAL PER COUNTED LEUKOCYTES BY MANUAL COUNT Normal [facility] Comment on above: Performed By: #### L [id number], [id number] ####Auger Operator: UNA ARCE ([id number])[facility] [place] ([facility])[address] EOSINOPHILS (10*3/UL) IN BLOOD-CELLAVISION 0.6 10*3/uL High 0.0-0.5 [facility] Comment on above: Performed By: #### L [id number], [id number] ####Auger Operator: UNA ARCE ([phone])[facility] [place] ([facility])[address] [place] [address] [place] EOSINOPHILS TOTAL PER COUNTED LEUKOCYTES BY MANUAL COUNT 5 High 0-1 [facility] Comment on above: Performed By: #### L [id number], [id number] ####Auger Operator: UNA ARCE ([id number])[facility] [place] ([facility])[address] [place] [address] [place] EOSINOPHILS/100 LEUKOCYTES IN BLOOD-CELLAVISION 5 % Normal 0-6 [facility] Comment on above: Performed By: #### L [id number], [id number] ####Auger Operator: UNA ARCE ([id number])[facility] [place] ([facility])[address] [place] [address] [place] HYPOCHROMIA (PRESENCE) IN BLOOD BY LIGHT MICROSCOPY Moderate Abnormal (none) [facility] Comment on above: Performed By: #### L [id number], [id number] ####Auger Operator: UNA ARCE ([phone])[facility] [place] ([facility])[address] [place] [address] [place] LYMPHOCYTES (10*3/UL) IN BLOOD-CELLAVISION 0.8 10*3/uL Low 1.0-4.3 [facility] Comment on above: Performed By: #### L [id number], [id number] ####Auger Operator: UNA ARCE ([phone])[facility] [place] ([facility])[address] [place] [address] [place] LYMPHOCYTES TOTAL PER COUNTED LEUKOCYTES BY MANUAL COUNT 7 Normal [facility] Comment on above: Performed By: #### L [id number], [id number] ####Auger Operator: UNA ARCE ([id number])[facility] [place] ([facility])[address] [place] [address] [place] LYMPHOCYTES/100 LEUKOCYTES IN BLOOD-CELLAVISION 7 % Low 15-45 [facility] Comment on above: Performed By: #### L [id number], [id number] ####Auger Operator: UNA ARCE ([phone])[facility] [place] ([facility])[address] [place] [address] [place] METAMYELOCYTES TOTAL PER COUNTED LEUKOCYTES BY MANUAL COUNT [facility] Comment on above: Performed By: #### L [id number], [id number] ####Auger Operator: UNA ARCE ([id number])[facility] [place] ([facility])[address] [place] [address] [place] MONOCYTES (10*3/UL) IN BLOOD-CELLAVISION 2.0 10*3/uL High 0.0-0.9 [facility] Comment on above: Performed By: #### L [id number], [id number] ####Auger Operator: UNA ARCE ([id number])[facility] [place] ([facility])[address] [place] [address] [place] MONOCYTES TOTAL PER COUNTED LEUKOCYTES BY MANUAL COUNT 19 [facility] Comment on above: Performed By: #### L [id number], [id number] ####Auger Operator: UNA ARCE ([id number])[facility] [place] ([facility])[address] [place] [address] [place] MONOCYTES/100 LEUKOCYTES IN BLOOD-LUCIANA 18 % High 5-13 [facility] Comment on above: Performed By: #### L [id number], [id number] ####Auger Operator: UNA ARCE ([phone])[facility] [place] ([facility])[address] [place] [address] [place] MYELOCYTES COUNTED BY MANUAL COUNT [facility] Comment on above: Performed By: #### L [id number], [id number] ####Auger Operator: UNA ARCE ([id number])[facility] [place] ([facility])[address] [place] [address] [place] NEUTROPHILS TOTAL PER COUNTED LEUKOCYTES BY MANUAL COUNT 77 Normal [facility] Comment on above: Performed By: #### L [id number], [id number] ####Auger Operator: UNA ARCE ([phone])[facility] [place] ([facility])[address] [place] [address] [place] POIKILOCYTOSIS (PRESENCE) IN BLOOD BY LIGHT MICROSCOPY Slight Abnormal (none) [facility] Comment on above: Performed By: #### L [id number], [id number] ####Auger Operator: UNA ARCE ([phone])[facility] [place] ([facility])[address] POLYCHROMASIA IN BLOOD BY LIGHT MICROSCOPY Slight Abnormal (none) [facility] Comment on above: Performed By: #### L [id number], [id number] ####Auger Operator: UNA STAUFFERMELANIE ([phone])[facility] [place] ([facility])[address] PROMYELOCYTES TOTAL PER COUNTED LEUKOCYTES BY MANUAL COUNT Normal [facility] Comment on above: Performed By: #### L [id number], [id number] ####Auger Operator: UNA ARCE ([phone])[facility] [place] ([facility])[address] [place] [address] [place] RBC MORPHOLOGY IN BLOOD abnormal Normal S [facility] Comment on above: Performed By: #### L [id number], [id number] ####Auger Operator: UNA ARCE ([id number])[facility] [place] ([facility])[address] [place] [address] [place] SEGMENTED NEUTROPHILS (10*3/UL) IN BLOOD-CELLAVISION 8.0 10*3/uL High 1.8-7.5 [facility] Comment on above: Performed By: #### L [id number], [id number] ####Auger Operator: UNA ARCE ([phone])[facility] [place] ([facility])[address] [place] [address] [place] SEGMENTED NEUTROPHILS/100 LEUKOCYTES-CE 71 % Normal 38-82 [facility] Comment on above: Performed By: #### L [id number], [id number] ####Auger Operator: UNA BERMUDEZPEDRO ([id number])[facility] ([facility])[address] STOMATOCYTES IN BLOOD BY LIGHT MICROSCOPY Moderate Abnormal (none) [facility] Comment on above: Performed By: #### L [id number], [id number] ####Auger Operator: UNA BERMUDEZPEDRO ([id number])[facility] ([facility])[address] UNCLASSIFIED CELLS TOTAL PER COUNTED LEUKOCYTES BY MANUAL COUNT Normal [facility] Comment on above: Performed By: #### L [id number], [id number] ####Auger Operator: UNA STAUFFERMELANIE ([id number])[facility] ([facility])[address] VARIANT LYMPHOCYTES TOTAL PER COUNTED LEUKOCYTES BY MANUAL COUNT Normal [facility] Comment on above: Performed By: #### L [id number], [id number] ####Auger Operator: UNA BERMUDEZPEDRO ([id number])[facility] [place] ([facility])[address] Magnesium [Mass/Vol]on 04-09 [facility] No Panel Informationon 04-09 [facility] Interpretation and review of laboratory results Abnormal [facility] Interpretation and review of laboratory results Abnormal [facility] Interpretation and review of laboratory results Normal [facility] Eosinophils Manual 5 High 0 - 1 [facility] Lymphocytes Manual 7 [facility] Monocytes Manual 19 [facility] Neutrophils Manual 77 [facility] No Panel InformationOrdered By: Anne Miles on 04-09-2025 [facility] No Panel InformationOrdered By: Kyara Valles on 04-09-2025 Interpretation and review of laboratory results Abnormal [facility] No Panel InformationOrdered By: Jg Sarabia on 04-09-2025 Interpretation and review of laboratory results Abnormal [facility] Nursing Noteon 04-09-2025 Nursing Note R thoracentesis complete pt tolerated well with minimal discomfort Normal [facility] Nursing Note L thoracentesis complete per Dr Lewis. Pt tolerated well with minimal discomfort Normal [facility] PH, BODY FLUIDon 04-09-2025 pH (Body fld) 7.747 [pH] Normal [facility] Comment on above: Performed By: #### L AB188, [id number], AUY149, [id number] ####Auger Operator: ANAHY AVILA ([id number])[facility] ([facility])[address] [place] [address] TYPE OF BODY FLUID Pleural Fluid Normal [facility] Comment on above: Result Comment: YARELI [place] COMMENTS:This test was developed and its performance characteristics determined by [facility]. It has not been cleared or approved by the US Food and Drug Administration. This test was performed in a CLIA certified laboratory and is intended for clinical purposes. Performed By: #### L AB188, SOV589, VSB293, [id number] ####Auger Operator: ANAHY AVILA ([phone])[facility] ([facility])[address] [place] [address] Result Comment: YARELI [place] COMMENTS:This test was developed and its performance characteristics determined by [facility]. It has not been cleared or approved [...] developed and its performance characteristics determined by [employer]. It has not been cleared or approved by the US Food and Drug Administration. This test was performed in a CLIA certified laboratory and is intended for clinical purposes.Pleural gskjy-xj-rluxe protein ratio of >0.5 is one of Light???s criteria for an exudate. Heart failure associated misclassifications (by Light???s criteria) may be differentiated as transudative effusions by subsequently evaluating a bbbqj-ve-cqlttpr albumin gradient (>1.2 g/dL) and/or a qhwft-gc-dmlhe protein gradient (>3.1 g/dL). Result Comment: YARELI [place] COMMENTS:This test was developed and its performance characteristics determined by [facility] [employer]. It has not been cleared or approved by the US Food and Drug Administration. This test was performed in a CLIA certified laboratory and is intended for clinical purposes.Exudates are defined as meeting one of the following criteria: (a) Pleural zmsur-ka-apoft protein ratio of >0.5, (b) pleural npwjs-qi-iwtiu LDH ratio of >0.6, or (c)a pleural fluid LDH activity that is >2/3 the upper limit of a normal serum LDH activity (Light???s criteria). Performed By: #### L [id number], [id number] ####Auger Operator: UNA ARCE ([phone])[facility] [place] [address] pH (Body fld) 7.688 [pH] Normal [facility] Comment on above: Performed By: #### L AB196, [id number], [id number], [id number] ####Auger Operator: ANAHY AVILA ([phone])[facility] ([facility])[address] [place] [address] PHOSPHORUSon 04-09-2025 Phosphate [Mass/Vol] 3.5 mg/dL Normal 2.3-4.7 [facility] Comment on above: Performed By: #### L AB103, GIR990, LAB17 ####Auger Operator: UNA ARCE ([phone])[facility] ([facility])[address] [place] [address] PROTEIN BODY FLUIDon 025 PROTEIN, BODY FLUID 2.3 g/dL Normal [facility] Comment on above: Performed By: #### L AB188, [id number], [id number], [id number] ####Auger Operator: ANAHY [id number])[facility] ([facility])[address] [place] [address] PROTEIN, BODY FLUID 2.5 g/dL Normal [facility] Comment on above: Performed By: #### L AB196, [id number], RJI178, [id number] ####Auger Operator: ANAHY AVILA ([id number])[facility] ([facility])[address] [place] [address] [place] Phosphate [Moles/Vol]on Phosphate [Mass/Vol] 3.5 mg/dL 2.3 - 4 .7 mg/dL [facility] Progress Noteon 04-09-2025 Progress Note Normal [facility] Normal [facility] Progress Note Normal [facility] Progress [facility] Normal [facility] Progress [facility] TOTAL PROTEINon 04-09-2025 Protein [Mass/Vol] 5.9 g/dL Low 6.4-8.3 [facility] Comment on above: Result Comment: Seru m protein values are higher than plasma values. Samples from recumbent persons are lower by up to 0.5 g/dL as compared to ambulatory persons. After 60 years values are lower by up to 0.2 g/dL. Performed By: #### L AB118, LAB96 ####Auger Operator: UNA ARCE ([id number])[facility] ([facility])[address] [place] [address] XR CHEST 1 VIEWon 04-09-2025 XR CHEST 1 VIEW Normal [facility] XR Chest Single viewon 04-09 [facility] Radiology Study observation (narrative) [facility] Radiology Study observation (narrative) [facility] Radiology Study observation (narrative) [facility] XR Chest Single viewOrdered By: Gary Kay on 04-09-2025 [facility] [employer] Work Phone: XR Chest Single viewOrdered By: Sis Collins on 04-09-2025 [facility] [employer] Work Phone: XR Chest Single viewOrdered By: Kev Mattson on 04-09-2025 [facility] Work Phone: [phone] 04-08-2025 [id number] Attempted to insert garcía. [employer] injected. Unable to visualize meatus. Attempted x1 to insert garcía without success. Normal [facility] [id number] Normal [facility] [id number] 04-08-2025 [id number] Normal [facility] BLOOD GAS ARTERIALon 025 AMOUNT OF OXYGEN .40 Normal [facility] Comment on above: Performed By: #### L AB76 ####Auger Operator: UNA ARCE ([phone])[facility] [place] [address] Base excess Calc (Bld) [Moles/Vol] 11.2 mmol/L High -3.0-3.0 [facility] Comment on above: Performed By: #### L AB76 ####Auger Operator: UNA ARCE ([phone])[facility] ([facility])[address] [place] [address] CO2 [Moles/Vol] 41.2 mmol/L High 22.0-28.0 [facility] Comment on above: Performed By: #### L AB76 ####Auger Operator: UNA ARCE ([phone])[facility] ([facility])[address] [place] [address] HCO3 (Bld) [Moles/Vol] 38.9 mmol/L High 21.0-27.0 [facility] Comment on above: Performed By: #### L AB76 ####Auger Operator: UNA ARCE ([id number])[facility] (SBAB)[address] [place] [address] Hemoglobin (Bld) [Mass/Vol] 8.4 g/dL Low Screen only [facility] Comment on above: Performed By: #### L [id number] ####Auger Operator: UNA ARCE ([phone])[facility] [place] (SBHLAB)[address] OXYGEN SATURATION (%) IN ARTERIAL BLOOD 97.0 % Normal 97.0-99.0 [facility] Comment on above: Performed By: #### L [id number] ####Auger Operator: UNA ARCE ([phone])[facility] (SB[facility])[address] PCO2 ARTERIAL 75.1 mm Hg High 35.0-48.0 [facility] Comment on above: Performed By: #### L [id number] ####Auger Operator: UNA ARCE ([phone])[facility] ([facility])[address] PH ARTERIAL 7.332 Low 7.350-7.450 [facility] Comment on above: Performed By: #### L [id number] ####Auger Operator: UNA ARCE ([phone])[facility] (HL[facility])[address] PO2 ARTERIAL 104.0 mm Hg Normal 83.0-108.0 [facility] Comment on above: Performed By: #### L [id number] ####Auger Operator: UNA ARCE ([phone])[facility] ([facility])[address] SOURCE OF OXYGEN Non-Invasive Ventilator Normal [facility] Comment on above: Performed By: #### L [id number] ####Auger Operator: UNA ARCE ([phone])[facility] (SB[facility])[address] AMOUNT OF OXYGEN 4 liters Normal [facility] Comment on above: Performed By: #### L [id number] ####Auger Operator: UNA ARCE ([phone])[facility] (SB[facility])[address] Base excess Calc (Bld) [Moles/Vol] 9.9 mmol/L High -3.0-3.0 [facility] Comment on above: Performed By: #### L [id number] ####Auger Operator: UNA ARCE ([phone])[facility] [place] (SBHLAB)[address] CO2 [Moles/Vol] 40.6 mmol/L High 22.0-28.0 [facility] Comment on above: Performed By: #### L [id number] ####Auger Operator: UNA ARCE ([phone])[facility] [place] (SBHLAB)[address] HCO3 (Bld) [Moles/Vol] 38.2 mmol/L High 21.0-27.0 [facility] Comment on above: Performed By: #### L [id number] ####Auger Operator: UNA ARCE ([phone])[facility] (SBHL[facility])[address] Hemoglobin (Bld) [Mass/Vol] 8.6 g/dL Low Screen only [facility] Comment on above: Performed By: #### L [id number] ####Auger Operator: UNA ARCE ([phone])[facility] (SBHL[facility])[address] OXYGEN SATURATION (%) IN ARTERIAL BLOOD 96.1 % Low 97.0-99.0 [facility] Comment on above: Performed By: #### L [id number] ####Auger Operator: UNA ARCE ([phone])[facility] (SBHLAB)[address] PCO2 ARTERIAL 80.1 mm Hg Critically high 35.0-48.0 [facility] Comment on above: Performed By: #### L [id number] ####Auger Operator: UNA ARCE ([phone])[facility] (SBHLAB)[address] PH ARTERIAL 7.296 Low 7.350-7.450 [facility] Comment on above: Performed By: #### L [id number] ####Auger Operator: UNA ARCE ([phone])[facility] CENTERAngel [facility]OSPITALMarisol (SBHLAB)[address] PO2 ARTERIAL 92.0 mm Hg Normal 83.0-108.0 [facility] Comment on above: Performed By: #### L [id number] ####Auger Operator: UNA YAZMIN ([id number])[facility] (SBHLAB)[address] SOURCE OF OXYGEN Nasal Cannula (LPM) Normal [facility] Comment on above: Performed By: #### L [id number] ####Auger Operator: UNA ARCE ([id number])[facility] (SBHLAB)[address] CBC W Auto Differential pane l (Bld)on 04-08-2025 Erythrocyte distribution width (RBC) [Ratio] 21.1 % High 11.5 - 15.0 % [employer] Hematocrit (Bld) [Volume fraction] 25.9 % Low 40.0 - 52.0 % [employer] Hemoglobin (Bld) [Mass/Vol] 7.2 g/dL Low 13.0 - 18.0 g/dL [facility] [employer] MCH (RBC) [Entitic mass] 22.3 pg Low 26. 0 - 34.0 pg [facility] [employer] MCHC (RBC) [Mass/Vol] 27.8 % Low 30.5 - 36.0 % [employer] MCV (RBC) [Entitic vol] 80.2 fL 77.0 - 99.0 fL [employer] Platelet mean volume (Bld) [Entitic vol] 9.9 fL 9.0 - 12.7 fL [employer] Platelets (Bld) [#/Vol] 314 10*3/uL 140 - 440 10*3/uL [employer] RBC (Bld) [#/Vol] 3.23 10*6/uL Low 4.40 - 5.9 0 10*6/uL [employer] WBC (Bld) [#/Vol] 13 10*3/uL High 3.6 - 10.7 10*3/uL [employer] CBC WITH AUTO DIFFERENTIALon 04-08-2025 Erythrocyte distribution width (RBC) [Ratio] 21.1 % High 11.5-15.0 [facility] Comment on above: Performed By: #### L [id number], [id number] ####Auger Operator: UNA ARCE ([id number])[facility] (SBHLAB)[address] Hematocrit (Bld) [Volume fraction] 25.9 % Low 40.0-52.0 [facility] Comment on above: Performed By: #### L [id number], [id number] ####Auger Operator: UNA ARCE ([id number])[facility] ([facility] Hemoglobin (Bld) [Mass/Vol] 7.2 g/dL Low 13.0-18.0 [facility] Comment on above: Performed By: #### L [id number], [id number] ####Auger Operator: UNA ARCE ([phone])[facility] (SB[facility])[address] [place] [address] MCH (RBC) [Entitic mass] 22.3 pg Low 26.0-34.0 [facility] Comment on above: Performed By: #### L [id number], [id number] ####Auger Operator: UNA ARCE ([id number])[facility] ([facility])[address] [place] [address] MCHC 27.8 % Low 30.5-36.0 [facility] Comment on above: Performed By: #### L [id number], [id number] ####Auger Operator: UNA ARCE ([phone])[facility] ([facility] MCV (RBC) [Entitic vol] 80.2 fL Normal 77.0-99.0 [facility] Comment on above: Performed By: #### L [id number], [id number] ####Auger Operator: UNA ARCE ([phone])[facility]UR[facility]ITALN (SBHLAB)[address] Platelet mean volume (Bld) [Entitic vol] 9.9 fL Normal 9.0-12.7 [facility] Comment on above: Performed By: #### L [id number], [id number] ####Auger Operator: UNA ARCE ([phone])[facility] (SBHLAB)[address] Platelets (Bld) [#/Vol] 314 10*3/uL Normal 140-440 [facility] Comment on above: Performed By: #### L [id number], [id number] ####Auger Operator: UNA ARCE ([phone])[facility] (SB[facility]AB)[address] RBC (Bld) [#/Vol] 3.23 10*6/uL Low 4.40-5.90 [facility] Comment on above: Performed By: #### L [id number], [id number] ####Auger Operator: UNA ARCE ([id number])[facility] (SBHLAB)[address] WBC (Bld) [#/Vol] 13.0 10*3/uL High 3.6-10.7 [facility] Comment on above: Performed By: #### L [id number], [id number] ####Auger Operator: UNA ARCE ([phone])[facility] (SBHLAB)[address] COMPREHENSIVE METABOLIC PANE Anant 04-08-2025 Albumin [Mass/Vol] 2.4 g/dL Low 3.4-4.8 [facility] Comment on above: Performed By: #### L [id number], LAB17 ####Auger Operator: UNA ARCE ([phone])[facility] (SBHLAB)[address] ALP [Catalytic activity/Vol] 57 U/L Normal 40-150 [facility] Comment on above: Performed By: #### L [id number], LAB17 ####Auger Operator: UNA ARCE ([phone])[facility] (SBHLAB)[address] ALT [Catalytic activity/Vol] U/L Normal <40 [facility] Comment on above: Performed By: #### L AB103, LAB17 ####Auger Operator: UNA STAUFFERMELANIE ([phone])[facility] (SBHLAB)[address] Anion gap [Moles/Vol] 10 mmol/L Normal 3-13 [facility] Comment on above: Performed By: #### L AB103, LAB17 ####Auger Operator: UNA STAUFFERMELANIE ([id number])[facility] (SBHLAB)[address] AST [Catalytic activity/Vol] 21 U/L Normal <34 [facility] Comment on above: Performed By: #### L AB103, LAB17 ####Auger Operator: UNA STAUFFERMELANIE ([phone])[facility] (SBHLAB)[address] Bilirubin [Mass/Vol] 0.6 mg/dL Normal <1.2 [facility] Comment on above: Performed By: #### L AB103, LAB17 ####Auger Operator: UNA ARCE ([id number])[facility] (SBHLAB)[address] Calcium [Mass/Vol] 7.9 mg/dL Low 8.8-10.0 [facility] Comment on above: Performed By: #### L AB103, LAB17 ####Auger Operator: UNA ARCE ([id number])[facility] (SBHLAB)[address] Chloride [Moles/Vol] 99 mmol/L Normal 98-107 [facility] Comment on above: Performed By: #### L AB103, LAB17 ####Auger Operator: UNA ARCE ([phone])[facility] (SBHLAB)[address] CO2 [Moles/Vol] 33 mmol/L High 23-31 [facility] Comment on above: Performed By: #### L AB103, LAB17 ####Auger Operator: UNA ARCE ([id number])[facility]ENTERAngel [facility] (SBHLAB)[address] Creatinine [Mass/Vol] 1.78 mg/dL High 0.72-1.25 [facility] Comment on above: Performed By: #### L DERICK, LAB17 ####Auger Operator: UNA ARCE ([phone])[facility] (SBHLAB)[address] GLOMERULAR FILTRATION RATE ML/MIN/1.73 SQ M.PREDICTED 36.0 mL/min/1.73m*2 Low >60.0 [facility] Comment on above: Result Comment: Calc ulation based on the Chronic Kidney Disease Epidemiology Collaboration (CKD-EPI) equation refit without adjustment for race Performed By: #### L DERICK, LAB17 ####Auger Operator: UNA ARCE ([id number])[facility] [place] (SBHLAB)[address] Glucose [Mass/Vol] 99 mg/dL Normal 82-115 [facility] Comment on above: Performed By: #### L AB103, LAB17 ####Auger Operator: UNA ARCE ([phone])[facility] (SBHLAB)[address] [place] [address] [place] Potassium [Moles/Vol] 3.4 mmol/L Low 3.5-5.1 [facility] Comment on above: Result Comment: [facility] potassium values may be up to 0.5 mmol/L lower than serum values. Performed By: #### L AB103, LAB17 ####Auger Operator: UNA ARCE ([phone])[facility] (SBHLAB)[address] Protein [Mass/Vol] 5.8 g/dL Low 6.4-8.3 [facility] Comment on above: Performed By: #### L AB103, LAB17 ####Auger Operator: UNA ARCE ([phone])[facility] [place] (SBHLAB)[address] Sodium [Moles/Vol] 142 mmol/L Normal 136-145 [facility] Comment on above: Performed By: #### L AB103, LAB17 ####Auger Operator: UNA ARCE ([phone])[facility] [place] (SBHLAB)[address] Urea nitrogen [Mass/Vol] 26 mg/dL High 9-23 [facility] Comment on above: Performed By: #### L AB103, LAB17 ####Auger Operator: UNA ARCE ([phone])[facility] [place] (SBHLAB)[address] Comprehensive metabolic 1998 panelon 04-08-2025 Albumin [Mass/Vol] 2.4 g/dL Low 3.4 - 4.8 g/dL [facility] ALP [Catalytic activity/Vol] 57 U/L 40 - 150 U/L [facility] ALT [Catalytic activity/Vol] U/L NINF - 40 U/L [facility] Anion gap [Moles/Vol] 10 mmol/L 3 - 13 mmol/L [facility] AST [Catalytic activity/Vol] 21 U/L NINF - 34 U/L [facility] Bilirubin [Mass/Vol] 0.6 mg/dL NINF - 1.2 mg/dL [facility] Calcium [Mass/Vol] 7.9 mg/dL Low 8.8 - 10. 0 mg/dL [facility] Chloride [Moles/Vol] 99 mmol/L 98 - 10 7 mmol/L [facility] CO2 [Moles/Vol] 33 mmol/L High 23 - 31 mmol/L [facility] Creatinine [Mass/Vol] 1.78 mg/dL High 0.72 - 1.25 mg/dL [facility] GFR/1.73 sq M.predicted (S/P/Bld) [Vol rate/Area] 36 mL/min Low - PINF [facility] Glucose [Mass/Vol] 99 mg/dL 82 - 115 mg/dL [facility] Interpretation and review of laboratory results Abnormal [facility] Potassium [Moles/Vol] 3.4 mmol/L Low 3.5 - 5.1 mmol/L [facility] Protein [Mass/Vol] 5.8 g/dL Low 6.4 - 8.3 g/dL [facility] Sodium [Moles/Vol] 142 mmol/L 136 - 145 mmol/L [facility] Urea nitrogen [Mass/Vol] 26 mg/dL High 9 - 23 mg/d L [facility] Consulton 04-08-2025 Consult Normal [facility] Laboratory - Chemistry and C hemistry - challengeOrdered By: Renay Chan on 04-08-2025 Base excess Calc (Bld) [Moles/Vol] 11.2 mmol/L High -3.0 - 3.0 mmol/L [facility] CO2 (Bld) [Partial pressure] 75.1 mm[Hg] High [facility] CO2 [Moles/Vol] 41.2 mmol/L High 22.0 - 28.0 mmol/L [facility] HCO3 (Bld) [Moles/Vol] 38.9 mmol/L High 21.0 - 27.0 mmol/L [facility] Oxygen (Bld) [Partial pressure] 104 mm[Hg] [facility] pH (Bld) 7.332 [pH] Low 7.350 - 7.450 [facility] Laboratory - Chemistry and C hemistry - challengeOrdered By: Sallie Powell on 04-08-2025 Base excess Calc (Bld) [Moles/Vol] 9.9 mmol/L High -3.0 - 3.0 mmol/L [facility] CO2 (Bld) [Partial pressure] 80.1 mm[Hg] Critically high [facility] CO2 [Moles/Vol] 40.6 mmol/L High 22.0 - 28.0 mmol/L [facility] HCO3 (Bld) [Moles/Vol] 38.2 mmol/L High 21.0 - 27.0 mmol/L [facility] Oxygen (Bld) [Partial pressure] 92 mm[Hg] [facility] pH (Bld) 7.296 [pH] Low 7.350 - 7.450 [facility] Laboratory - Chemistry and C hemistry - challengeon 04-08-2025 Glucose [Mass/Vol] 100 mg/dL 70 - 100 mg/dL [facility] Magnesium [Mass/Vol] 1.6 mg/dL 1.6 - 2 .6 mg/dL [facility] Laboratory - Hematology and Cell countsOrdered By: Renay Chan on 04-08-2025 Hemoglobin (Bld) [Mass/Vol] 8.4 g/dL Low 13.5 - 17.5 g/dl [facility] Laboratory - Hematology and Cell countsOrdered By: Sallie Powell on 04-08-2025 Hemoglobin (Bld) [Mass/Vol] 8.6 g/dL Low 13.5 - 17.5 g/dl [facility] Laboratory - Hematology and Cell countson 04-08-2025 Anisocytosis Ql (Bld) Moderate Abnormal (none) [facility] Basophils (Bld) [#/Vol] 0.1 10*3/uL 0.0 - 0.2 10*3/uL [facility] Basophils/100 WBC (Bld) 1 % 0 - 2 % S [facility] Hypochromia Ql (Bld) Moderate Abnormal (none) [facility] Lymphocytes (Bld) [#/Vol] 1.8 10*3/uL 1.0 - 4.3 10*3/uL [facility] Lymphocytes/100 WBC (Bld) 14 % Low 15 - 45 % [facility] Monocytes (Bld) [#/Vol] 1.6 10*3/uL High 0.0 - 0.9 10*3/uL [facility] Monocytes/100 WBC (Bld) 12 % 5 - 13 % [facility] Neutrophils (Bld) [#/Vol] 9.6 10*3/uL High 1.8 - 7.5 10*3/uL [facility] Ovalocytes LM Ql (Bld) Slight Abnormal (none) [facility] Poikilocytosis LM Ql (Bld) Moderate Abnormal (none) [facility] RBC morphology finding Nom (Bld) abnormal [facility] Segmented neutrophils/100 WBC (Bld) 74 % 38 - 82 % [facility] Stomatocytes LM Ql (Bld) Moderate Abnormal (none) [facility] MAGNESIUMon 04-08-2025 Magnesium [Mass/Vol] 1.6 mg/dL Normal 1.6-2.6 [facility] Comment on above: Result Comment: YARELI [place] COMMENTS:Higher values can be expected in females during menses. Performed By: #### L AB103, LAB17 ####Auger Operator: UNA ARCE ([phone])[facility] [place] (SBHLAB)[address] MANUAL DIFFERENTIAL (CELLAVI BANDAR)on 04-08-2025 ANISOCYTOSIS PRESENCE IN BLOOD BY LIGHT MICROSCOPY Moderate Abnormal (none) [facility] Comment on above: Performed By: #### L [id number], [id number] ####Auger Operator: UNA ARCE ([id number])[facility] [place] (SBHLAB)[address] BAND NEUTROPHILS TOTAL PER COUNTED LEUKOCYTES BY MANUAL COUNT Normal [facility] Comment on above: Performed By: #### L [id number], [id number] ####Auger Operator: UNA ARCE ([phone])[facility] (SBHLAB)[address] [place] [address] [place] BASOPHILS (10*3/UL) IN BLOOD-CELLAVISION 0.1 10*3/uL Normal 0.0-0.2 [facility] Comment on above: Performed By: #### L [id number], [id number] ####Auger Operator: UNA ARCE ([id number])[facility] [place] (SBHLAB)[address] [place] [address] [place] BASOPHILS TOTAL PER COUNTED LEUKOCYTES BY MANUAL COUNT 1 Normal [facility] Comment on above: Performed By: #### L [id number], [id number] ####Auger Operator: UNA ARCE ([phone])[facility] [place] (SBHLAB)[address] [place] [address] [place] BASOPHILS/100 LEUKOCYTES IN BLOOD-CELLAVISION 1 % Normal 0-2 [facility] Comment on above: Performed By: #### L [id number], [id number] ####Auger Operator: UNA ARCE ([phone])[facility] [place] (SBHLAB)[address] [place] [address] [place] BLASTS TOTAL PER COUNTED LEUKOCYTES BY MANUAL COUNT Normal [facility] Comment on above: Performed By: #### L [id number], [id number] ####Auger Operator: UNA MOHRCER ([phone])[facility] [place] (SBHLAB)[address] [place] [address] [place] EOSINOPHILS TOTAL PER COUNTED LEUKOCYTES BY MANUAL COUNT Normal [facility] Comment on above: Performed By: #### L [id number], [id number] ####Auger Operator: UNA ARCE ([phone])[facility] [place] (SBHLAB)[address] HYPOCHROMIA (PRESENCE) IN BLOOD BY LIGHT MICROSCOPY Moderate Abnormal (none) [facility] Comment on above: Performed By: #### L [id number], [id number] ####Auger Operator: UNAANJEL ARCE ([phone])[facility] [place] (SBHLAB)[address] [place] [address] [place] LYMPHOCYTES (10*3/UL) IN BLOOD-CELLAVISION 1.8 10*3/uL Normal 1.0-4.3 [facility] Comment on above: Performed By: #### L [id number], [id number] ####Auger Operator: UNAANJEL ARCE ([phone])[facility] [place] (SBHLAB)[address] [place] [address] [place] LYMPHOCYTES TOTAL PER COUNTED LEUKOCYTES BY MANUAL COUNT 14 Normal [facility] Comment on above: Performed By: #### L [id number], [id number] ####Auger Operator: UNA YAZMIN ([id number])[facility] [place] (SBHLAB)[address] [place] [address] [place] LYMPHOCYTES/100 LEUKOCYTES IN BLOOD-CELLAVISION 14 % Low 15-45 [facility] Comment on above: Performed By: #### L [id number], [id number] ####Auger Operator: UNA ARCE ([phone])[facility] [place] (SBHLAB)[address] [place] [address] [place] METAMYELOCYTES TOTAL PER COUNTED LEUKOCYTES BY MANUAL COUNT [facility] Comment on above: Performed By: #### L [id number], [id number] ####Auger Operator: UNA STAUFFERMELANIE ([phone])[facility] [place] (SBHLAB)[address] [place] [address] [place] MONOCYTES (10*3/UL) IN BLOOD-CELLAVISION 1.6 10*3/uL High 0.0-0.9 [facility] Comment on above: Performed By: #### L [id number], [id number] ####Auger Operator: UNA STAUFFERMELANIE ([phone])[facility] [place] (SBHLAB)[address] [place] [address] [place] MONOCYTES TOTAL PER COUNTED LEUKOCYTES BY MANUAL COUNT 12 Normal [facility] Comment on above: Performed By: #### L [id number], [id number] ####Auger Operator: UNA STAUFFERMELANIE ([phone])[facility] [place] (SBHLAB)[address] [place] [address] [place] MONOCYTES/100 LEUKOCYTES IN BLOOD-LUCIANA 12 % Normal -13 [facility] Comment on above: Performed By: #### L [id number], [id number] ####Auger Operator: UNA ARCE ([phone])[facility] [place] (SBHLAB)[address] [place] [address] [place] MYELOCYTES COUNTED BY MANUAL COUNT [facility] Comment on above: Performed By: #### L [id number], [id number] ####Auger Operator: UNA ARCE ([phone])[facility] [place] (SBHLAB)[address] [place] [address] [place] NEUTROPHILS TOTAL PER COUNTED LEUKOCYTES BY MANUAL COUNT 75 Normal [facility] Comment on above: Performed By: #### L [id number], [id number] ####Auger Operator: UNA ARCE ([phone])[facility] [place] (SBHLAB)[address] [place] [address] [place] OVALOCYTES PRESENCE IN BLOOD BY LIGHT MICROSCOPY Slight Abnormal (none) [facility] Comment on above: Performed By: #### L [id number], [id number] ####Auger Operator: UNA ARCE ([phone])[facility] [place] (SBHLAB)[address] [place] [address] [place] POIKILOCYTOSIS (PRESENCE) IN BLOOD BY LIGHT MICROSCOPY Moderate Abnormal (none) [facility] Comment on above: Performed By: #### L [id number], [id number] ####Auger Operator: UNA ARCE ([phone])[facility] [place] (SBHLAB)[address] [place] [address] [place] PROMYELOCYTES TOTAL PER COUNTED LEUKOCYTES BY MANUAL COUNT Normal [facility] Comment on above: Performed By: #### L [id number], [id number] ####Auger Operator: UNA ARCE ([phone])[facility] [place] (SBHLAB)[address] [place] [address] [place] RBC MORPHOLOGY IN BLOOD abnormal Normal S [facility] Comment on above: Performed By: #### L [id number], [id number] ####Auger Operator: UNA ARCE ([phone])[facility] [place] (SBHLAB)[address] [place] [address] [place] SEGMENTED NEUTROPHILS (10*3/UL) IN BLOOD-CELLAVISION 9.6 10*3/uL High 1.8-7.5 [facility] Comment on above: Performed By: #### L [id number], [id number] ####Auger Operator: UNA ARCE ([phone])[facility] [place] (SBHLAB)[address] [place] [address] [place] SEGMENTED NEUTROPHILS/100 LEUKOCYTES-CE 74 % Normal 38-82 [facility] Comment on above: Performed By: #### L [id number], [id number] ####Auger Operator: UNA ARCE ([phone])[facility] [place] (SBHLAB)[address] STOMATOCYTES IN BLOOD BY LIGHT MICROSCOPY Moderate Abnormal (none) [facility] Comment on above: Performed By: #### L [id number], [id number] ####Auger Operator: UNA ARCE ([phone])[facility] (SBHLAB)[address] UNCLASSIFIED CELLS TOTAL PER COUNTED LEUKOCYTES BY MANUAL COUNT Normal [facility] Comment on above: Performed By: #### L [id number], [id number] ####Auger Operator: UNA ARCE ([phone])[facility] (SBHLAB)[address] VARIANT LYMPHOCYTES TOTAL PER COUNTED LEUKOCYTES BY MANUAL COUNT Normal [facility] Comment on above: Performed By: #### L [id number], [id number] ####Auger Operator: UNA ARCE ([phone])[facility] ([facility])[address] Magnesium [Mass/Vol]on 04-08 Interpretation and review of laboratory results Normal [facility] No Panel InformationOrdered By: Renay Chan on 04-08-2025 Amount Of Oxygen 0.40 [facility] Interpretation and review of laboratory results Abnormal [facility] Source Of Oxygen Non-Invasive Ventilator [facility] No Panel InformationOrdered By: Sallie Powell on 04-08-2025 Amount Of Oxygen 4 liters [facility] Interpretation and review of laboratory results Abnormal [facility] Source Of Oxygen Nasal Cannula (LPM) [facility] [facility] No Panel Informationon 04-08 Interpretation and review of laboratory results Normal [facility] Basophils Manual 1 [facility] alth Interpretation and review of laboratory results Abnormal [facility] Lymphocytes Manual 14 [facility] Monocytes Manual 12 [facility] alth Neutrophils Manual 75 [facility] Progress Noteon 04-08-2025 Progress Note Normal [facility] Progress Note Normal [facility] Progress Note Normal [facility] Progress Note Normal [facility] Progress Note Normal [facility] XR Chest Single viewon 04-08 [facility] Radiology Study observation (narrative) [facility] XR Chest Single viewOrdered By: Nelson Sow on 04-08-2025 [facility] Work Phone: CBC W Auto Differential pane l (Bld)Ordered By: Sharita Beck on 04-07-2025 Erythrocyte distribution width (RBC) [Ratio] 20.5 % High 11.5 - 15.0 % [facility] Hematocrit (Bld) [Volume fraction] 27.2 % Low 40.0 - 52.0 % [facility] Hemoglobin (Bld) [Mass/Vol] 7.4 g/dL Low 13.0 - 18.0 g/dL [facility] MCH (RBC) [Entitic mass] 21.8 pg Low 26. 0 - 34.0 pg [facility] MCHC (RBC) [Mass/Vol] 27.2 % Low 30.5 - 36.0 % [facility] MCV (RBC) [Entitic vol] 80 fL 77.0 - 99.0 fL [facility] Platelet mean volume (Bld) [Entitic vol] 9.8 fL 9.0 - 12.7 fL [facility] Platelets (Bld) [#/Vol] 346 10*3/uL 140 - 440 10*3/uL [facility] RBC (Bld) [#/Vol] 3.4 10*6/uL Low 4.40 - 5.9 0 10*6/uL [facility] WBC (Bld) [#/Vol] 11.5 10*3/uL High 3.6 - 10.7 10*3/uL [facility] CBC WITH AUTO DIFFERENTIALon 04-07-2025 Erythrocyte distribution width (RBC) [Ratio] 20.5 % High 11.5-15.0 [facility] Comment on above: Performed By: #### L [id number], [id number] ####Auger Operator: UNA ARCE ([phone])[facility] ([facility])[address] [place] [address] Hematocrit (Bld) [Volume fraction] 27.2 % Low 40.0-52.0 [facility] Comment on above: Performed By: #### L [id number], [id number] ####Auger Operator: UNA ARCE ([phone])[facility] SANCHEZCHRISITNAN ([facility])[address] Hemoglobin (Bld) [Mass/Vol] 7.4 g/dL Low 13.0-18.0 [facility] Comment on above: Performed By: #### L [id number], [id number] ####Auger Operator: UNA ARCE ([id number])[facility] ([facility])[address] MCH (RBC) [Entitic mass] 21.8 pg Low 26.0-34.0 [facility] Comment on above: Performed By: #### L [id number], [id number] ####Auger Operator: UNA ARCE ([id number])[facility] (SB[facility])[address] MCHC 27.2 % Low 30.5-36.0 [facility] Comment on above: Performed By: #### L [id number], [id number] ####Auger Operator: UNA ARCE ([id number])[facility] (SB[facility])[address] MCV (RBC) [Entitic vol] 80.0 fL Normal 77.0-99.0 S [facility] Comment on above: Performed By: #### L [id number], [id number] ####Auger Operator: UNA ARCE ([id number])[facility] ([facility])[address] Platelet mean volume (Bld) [Entitic vol] 9.8 fL Normal 9.0-12.7 [facility] Comment on above: Performed By: #### L [id number], [id number] ####Auger Operator: UNA ARCE ([id number])[facility]ENTERA BARBHOLY CROSS HOSPITALN (SBHLAB)[address] Platelets (Bld) [#/Vol] 346 10*3/uL Normal 140-440 [facility] Comment on above: Performed By: #### L [id number], [id number] ####Auger Operator: UNA ARCE ([id number])LYNETTE BASHIRN (SBHLAB)[address] RBC (Bld) [#/Vol] 3.40 10*6/uL Low 4.40-5.90 [facility] Comment on above: Performed By: #### L [id number], [id number] ####Auger Operator: UNA ARCE ([phone])[facility] BASHIRN (SB[facility]AB)[address] WBC (Bld) [#/Vol] 11.5 10*3/uL High 3.6-10.7 [facility] Comment on above: Performed By: #### L [id number], [id number] ####Auger Operator: UNA ARCE ([phone])[facility] (SBHLAB)[address] COMPREHENSIVE METABOLIC PANE Anant 04-07-2025 Albumin [Mass/Vol] 2.4 g/dL Low 3.4-4.8 [facility] Comment on above: Performed By: #### L AB17, [id number] ####Auger Operator: UNA ARCE ([id number])[facility] BASHIRN (SBHLAB)[address] ALP [Catalytic activity/Vol] 57 U/L Normal 40-150 [facility] Comment on above: Performed By: #### L AB17, [id number] ####Auger Operator: UNA ARCE ([phone])[facility]Angel [facility]ZHOL[facility]N (SB[facility])[address] ALT [Catalytic activity/Vol] U/L Normal <40 [facility] Comment on above: Performed By: #### L AB17, [id number] ####Auger Operator: UNA ARCE ([id number])[facility] [place] (SBHLAB)[address] Anion gap [Moles/Vol] 14 mmol/L High 3-13 [facility] Comment on above: Performed By: #### L AB17, [id number] ####Auger Operator: UNA ARCE ([phone])[facility] [place] ([facility])[address] AST [Catalytic activity/Vol] 23 U/L Normal <34 [facility] Comment on above: Performed By: #### L AB17, [id number] ####Auger Operator: UNA ARCE ([phone])[facility] [place] ([facility])[address] Bilirubin [Mass/Vol] 0.7 mg/dL Normal <1.2 [facility] Comment on above: Performed By: #### L AB17, [id number] ####Auger Operator: UNA ARCE ([id number])[facility] [place] ([facility])[address] Calcium [Mass/Vol] 7.9 mg/dL Low 8.8-10.0 [facility] Comment on above: Performed By: #### L AB17, [id number] ####Auger Operator: UNA ARCE ([phone])[facility] [place] (SB[facility])[address] [place] [address] [place] Chloride [Moles/Vol] 98 mmol/L Normal 98-107 [facility] Comment on above: Performed By: #### L AB17, [id number] ####Auger Operator: UNA ARCE ([phone])[facility] [place] (SB[facility]AB)[address] [place] [address] [place] CO2 [Moles/Vol] 31 mmol/L Normal 23-31 [facility] Comment on above: Performed By: #### L AB17, [id number] ####Auger Operator: UNA ARCE ([phone])[facility] [place] (SB[facility])[address] Creatinine [Mass/Vol] 1.63 mg/dL High 0.72-1.25 [facility] Comment on above: Performed By: #### L AB17, [id number] ####Auger Operator: NUA ARCE ([phone])[facility]Angel BASHIRN (SBHLAB)[address] GLOMERULAR FILTRATION RATE ML/MIN/1.73 SQ M.PREDICTED 40.0 mL/min/1.73m*2 Low >60.0 [facility] Comment on above: Result Comment: Calc ulation based on the Chronic Kidney Disease Epidemiology Collaboration (CKD-EPI) equation refit without adjustment for race Performed By: #### L AB17, [id number] ####Auger Operator: UNA ARCE ([phone])[facility] B[facility]N (SB[facility])[address] Glucose [Mass/Vol] 88 mg/dL Normal 82-115 [facility] Comment on above: Performed By: #### L AB17, [id number] ####Auger Operator: UNA ARCE ([phone])[facility]Angel [facility] (SBHLAB)[address] Potassium [Moles/Vol] 3.6 mmol/L Normal 3.5-5.1 [facility] Comment on above: Result Comment: [facility] potassium values may be up to 0.5 mmol/L lower than serum values. Performed By: #### L AB17, [id number] ####Auger Operator: UNA ARCE ([phone])[facility] BASHIRN (SBHLAB)[address] Protein [Mass/Vol] 5.7 g/dL Low 6.4-8.3 [facility] Comment on above: Performed By: #### L AB17, [id number] ####Auger Operator: UNA ARCE ([phone])[facility]ENTERAngel [facility]ZHOL[facility]N (SB[facility])[address] [place] [address] [place] Sodium [Moles/Vol] 143 mmol/L Normal 136-145 [facility] Comment on above: Performed By: #### L AB17, [id number] ####Auger Operator: UNA ARCE ([phone])[facility] ([facility])[address] Urea nitrogen [Mass/Vol] 26 mg/dL High 9-23 [facility] Comment on above: Performed By: #### L AB17, [id number] ####Auger Operator: UNA ARCE ([phone])[facility] ([facility])[address] Comprehensive metabolic 1998 panelon 04-07-2025 Albumin [Mass/Vol] 2.4 g/dL Low 3.4 - 4.8 g/dL [facility] ALP [Catalytic activity/Vol] 57 U/L 40 - 150 U/L [facility] ALT [Catalytic activity/Vol] U/L NINF - 40 U/L [facility] Anion gap [Moles/Vol] 14 mmol/L High 3 - 13 mmol/L [facility] AST [Catalytic activity/Vol] 23 U/L NINF - 34 U/L [facility] Bilirubin [Mass/Vol] 0.7 mg/dL NINF - 1.2 mg/dL [facility] Calcium [Mass/Vol] 7.9 mg/dL Low 8.8 - 10. 0 mg/dL [facility] Chloride [Moles/Vol] 98 mmol/L 98 - 10 7 mmol/L [facility] CO2 [Moles/Vol] 31 mmol/L 23 - 31 mmol/L [facility] Creatinine [Mass/Vol] 1.63 mg/dL High 0.72 - 1.25 mg/dL [facility] GFR/1.73 sq M.predicted (S/P/Bld) [Vol rate/Area] 40 mL/min Low - PINF [facility] Glucose [Mass/Vol] 88 mg/dL 82 - 115 mg/dL [facility] Interpretation and review of laboratory results Abnormal [facility] Potassium [Moles/Vol] 3.6 mmol/L 3.5 - 5.1 mmol/L [facility] Protein [Mass/Vol] 5.7 g/dL Low 6.4 - 8.3 g/dL [facility] Sodium [Moles/Vol] 143 mmol/L 136 - 145 mmol/L [facility] Urea nitrogen [Mass/Vol] 26 mg/dL High 9 - 23 mg/d L [facility] Consulton 04-07-2025 Consult Normal [facility] Laboratory - Chemistry and C hemistry - challengeon 04-07-2025 Magnesium [Mass/Vol] 1.7 mg/dL 1.6 - 2 .6 mg/dL [facility] Laboratory - Hematology and Cell countson 04-07-2025 Anisocytosis Ql (Bld) Slight Abnormal (none) [facility] Eosinophils (Bld) [#/Vol] 0.3 10*3/uL 0.0 - 0.5 10*3/uL [facility] Eosinophils/100 WBC (Bld) 3 % 0 - 6 % [facility] Hypochromia Ql (Bld) Moderate Abnormal (none) [facility] Lymphocytes (Bld) [#/Vol] 0.9 10*3/uL Low 1.0 - 4.3 10*3/uL [facility] Lymphocytes/100 WBC (Bld) 8 % Low 15 - 45 % [facility] Monocytes (Bld) [#/Vol] 0.8 10*3/uL 0.0 - 0.9 10*3/uL [facility] Monocytes/100 WBC (Bld) 7 % 5 - 13 % [facility] Neutrophils (Bld) [#/Vol] 9.5 10*3/uL High 1.8 - 7.5 10*3/uL [facility] Nucleated RBC/100 WBC (Bld) [Ratio] 1 % 0 - 2 % [facility] Poikilocytosis LM Ql (Bld) Slight Abnormal (none) [facility] RBC morphology finding Nom (Bld) abnormal [facility] Segmented neutrophils/100 WBC (Bld) 83 % High 38 - 82 % [facility] Stomatocytes LM Ql (Bld) Moderate Abnormal (none) [facility] MAGNESIUMon 04-07-2025 Magnesium [Mass/Vol] 1.7 mg/dL Normal 1.6-2.6 [facility] Comment on above: Result Comment: ORDE R COMMENTS:Higher values can be expected in females during menses. Performed By: #### L AB17, [id number] ####Auger Operator: UNA ARCE ([phone])[facility] [place] (SBHLAB)[address] [place] [address] [place] MANUAL DIFFERENTIAL (CELLAVI BANDAR)on 04-07-2025 ANISOCYTOSIS PRESENCE IN BLOOD BY LIGHT MICROSCOPY Slight Abnormal (none) [facility] Comment on above: Performed By: #### L [id number], [id number] ####Auger Operator: UNA ARCE ([phone])[facility] [place] (SBHLAB)[address] BAND NEUTROPHILS TOTAL PER COUNTED LEUKOCYTES BY MANUAL COUNT Normal [facility] Comment on above: Performed By: #### L [id number], [id number] ####Auger Operator: UNA ARCE ([id number])[facility] [place] (SBHL[facility])[address] BASOPHILS TOTAL PER COUNTED LEUKOCYTES BY MANUAL COUNT Normal [facility] Comment on above: Performed By: #### L [id number], [id number] ####Auger Operator: UNA ARCE ([phone])[facility] [place] (SB[facility])[address] [place] [address] [place] BLASTS TOTAL PER COUNTED LEUKOCYTES BY MANUAL COUNT Normal [facility] Comment on above: Performed By: #### L [id number], [id number] ####Auger Operator: UNA ARCE ([phone])[facility] [place] (SBHLAB)[address] [place] [address] [place] EOSINOPHILS (10*3/UL) IN BLOOD-CELLAVISION 0.3 10*3/uL Normal 0.0-0.5 [facility] Comment on above: Performed By: #### L [id number], [id number] ####Auger Operator: UNA ARCE ([phone])[facility] [place] (SBHLAB)[address] [place] [address] [place] EOSINOPHILS TOTAL PER COUNTED LEUKOCYTES BY MANUAL COUNT 3 High 0-1 [facility] Comment on above: Performed By: #### L [id number], [id number] ####Auger Operator: UNA STAUFFERMELANIE ([phone])[facility] [place] (SBHLAB)[address] [place] [address] [place] EOSINOPHILS/100 LEUKOCYTES IN BLOOD-CELLAVISION 3 % Normal 0-6 [facility] Comment on above: Performed By: #### L [id number], [id number] ####Auger Operator: UNA STAUFFERMELANIE ([phone])[facility] [place] (SB[facility])[address] [place] [address] [place] HYPOCHROMIA (PRESENCE) IN BLOOD BY LIGHT MICROSCOPY Moderate Abnormal (none) [facility] Comment on above: Performed By: #### L [id number], [id number] ####Auger Operator: UNA BERMUDEZPEDRO ([phone])[facility] [place] (SB[facility])[address] [place] [address] [place] LYMPHOCYTES (10*3/UL) IN BLOOD-CELLAVISION 0.9 10*3/uL Low 1.0-4.3 [facility] Comment on above: Performed By: #### L [id number], [id number] ####Auger Operator: UNA STAUFFERMELANIE ([phone])[facility] [place] (SB[facility])[address] [place] [address] [place] LYMPHOCYTES TOTAL PER COUNTED LEUKOCYTES BY MANUAL COUNT 8 Normal [facility] Comment on above: Performed By: #### L [id number], [id number] ####Auger Operator: UNA STAUFFERMELANIE ([phone])[facility] [place] (SB[facility])[address] [place] [address] [place] LYMPHOCYTES/100 LEUKOCYTES IN BLOOD-CELLAVISION 8 % Low 15-45 [facility] Comment on above: Performed By: #### L [id number], [id number] ####Auger Operator: UNA STAUFFERMELANIE ([phone])[facility] [place] (SB[facility])[address] [place] [address] [place] METAMYELOCYTES TOTAL PER COUNTED LEUKOCYTES BY MANUAL COUNT Normal [facility] Comment on above: Performed By: #### L [id number], [id number] ####Auger Operator: UNA STAUFFERMELANIE ([phone])[facility] [place] (SB[facility])[address] [place] [address] [place] MONOCYTES (10*3/UL) IN BLOOD-CELLAVISION 0.8 10*3/uL Normal 0.0-0.9 [facility] Comment on above: Performed By: #### L [id number], [id number] ####Auger Operator: UNA BERMUDEZPEDRO ([phone])[facility] [place] (SB[facility])[address] [place] [address] [place] MONOCYTES TOTAL PER COUNTED LEUKOCYTES BY MANUAL COUNT 7 Normal [facility] Comment on above: Performed By: #### L [id number], [id number] ####Auger Operator: UNA BERMUDEZPEDRO ([phone])[facility] [place] (SB[facility])[address] [place] [address] [place] MONOCYTES/100 LEUKOCYTES IN BLOOD-LUCIANA 7 % Normal 5-13 [facility] Comment on above: Performed By: #### L [id number], [id number] ####Auger Operator: UNA BERMUDEZPEDRO ([phone])[facility] [place] (SB[facility])[address] MYELOCYTES COUNTED BY MANUAL COUNT [facility] Comment on above: Performed By: #### L [id number], [id number] ####Auger Operator: UNA ARCE ([phone])[facility] [place] (SBHL[facility])[address] [place] [address] [place] NEUTROPHILS TOTAL PER COUNTED LEUKOCYTES BY MANUAL COUNT 86 Normal [facility] Comment on above: Performed By: #### L [id number], [id number] ####Auger Operator: UNA ACRE ([phone])[facility] [place] (SB[facility]AB)[address] [place] [address] [place] NUCLEATED ERYTHROCYTES/100 LEUKOCTES IN BLOOD-CELLAVISION 1 % Normal 0-2 [facility] Comment on above: Performed By: #### L [id number], [id number] ####Auger Operator: UNA ARCE ([phone])[facility]ENTERAngel [place] (SBHLAB)[address] [place] [address] [place] POIKILOCYTOSIS (PRESENCE) IN BLOOD BY LIGHT MICROSCOPY Slight Abnormal (none) [facility] Comment on above: Performed By: #### L [id number], [id number] ####Auger Operator: UNA ARCE ([phone])[facility] [place] (SB[facility])[address] [place] [address] [place] PROMYELOCYTES TOTAL PER COUNTED LEUKOCYTES BY MANUAL COUNT Normal [facility] Comment on above: Performed By: #### L [id number], [id number] ####Auger Operator: UNA ARCE ([phone])[facility] (SBHL[facility])[address] RBC MORPHOLOGY IN BLOOD abnormal Normal S [facility] Comment on above: Performed By: #### L [id number], [id number] ####Auger Operator: UNA ARCE ([phone])[facility] [place] (SB[facility])[address] [place] [address] [place] SEGMENTED NEUTROPHILS (10*3/UL) IN BLOOD-CELLAVISION 9.5 10*3/uL High 1.8-7.5 [facility] Comment on above: Performed By: #### L [id number], [id number] ####Auger Operator: UNA ARCE ([phone])[facility]ENTERAngel [place] (SB[facility])[address] [place] [address] [place] SEGMENTED NEUTROPHILS/100 LEUKOCYTES-CE 83 % High 38-82 [facility] Comment on above: Performed By: #### L [id number], [id number] ####Auger Operator: UNA ARCE ([phone])[facility] [place] (SB[facility])[address] [place] [address] [place] STOMATOCYTES IN BLOOD BY LIGHT MICROSCOPY Moderate Abnormal (none) [facility] Comment on above: Performed By: #### L [id number], [id number] ####Auger Operator: UNA ARCE ([phone])[facility] (SB[facility]AB)[address] UNCLASSIFIED CELLS TOTAL PER COUNTED LEUKOCYTES BY MANUAL COUNT Normal [facility] Comment on above: Performed By: #### L [id number], [id number] ####Auger Operator: UNA BERMUDEZPEDRO ([phone])[facility] (SB[facility])[address] VARIANT LYMPHOCYTES TOTAL PER COUNTED LEUKOCYTES BY MANUAL COUNT Normal [facility] Comment on above: Performed By: #### L [id number], [id number] ####Auger Operator: UNA STAUFFERMELANIE ([phone])[facility] (SB[facility])[address] Magnesium [Mass/Vol]on 04-07 Interpretation and review of laboratory results Normal [facility] No Panel Informationon 04-07 Eosinophils Manual 3 High 0 - 1 [facility] Lymphocytes Manual 8 [facility] Monocytes Manual 7 [facility] alth Neutrophils Manual 86 [facility] No Panel InformationOrdered By: Sharita Beck on 04-07-2025 Interpretation and review of laboratory results Abnormal [facility] Progress Noteon 04-07-2025 Progress Note [facility] Progress Note Normal [facility] Progress Note Normal [facility] Progress [facility] Progress Note [facility] [id number] 04-06-2025 [id number] Normal [facility] CBC W Auto Differential pane l (Bld)Ordered By: Annmarie Zuñiga on 04-06-2025 Hematocrit (Bld) [Volume fraction] 27.2 % Low 40.0 - 52.0 % [facility] Hemoglobin (Bld) [Mass/Vol] 7.6 g/dL Low 13.0 - 18.0 g/dL [facility] MCH (RBC) [Entitic mass] 22 pg Low 26. 0 - 34.0 pg [facility] MCV (RBC) [Entitic vol] 78.6 fL 77.0 - 99.0 fL [facility] RBC (Bld) [#/Vol] 3.46 10*6/uL Low 4.40 - 5.9 0 10*6/uL [facility] CBC WITH AUTO DIFFERENTIALon 04-06-2025 Erythrocyte distribution width (RBC) [Ratio] 20.5 % High 11.5-15.0 [facility] Comment on above: Performed By: #### L [id number], [id number] ####Auger Operator: UNA ARCE ([phone])[facility] (SB[facility])[address] [place] [address] Hematocrit (Bld) [Volume fraction] 27.2 % Low 40.0-52.0 [facility] Comment on above: Performed By: #### L [id number], [id number] ####Auger Operator: UNA ARCE ([phone])[facility] ([facility])[address] [place] [address] Hemoglobin (Bld) [Mass/Vol] 7.6 g/dL Low 13.0-18.0 [facility] Comment on above: Performed By: #### L [id number], [id number] ####Auger Operator: UNA ARCE ([phone])[facility] ([facility])[address] [place] [address] MCH (RBC) [Entitic mass] 22.0 pg Low 26.0-34.0 [facility] Comment on above: Performed By: #### L [id number], [id number] ####Auger Operator: UNA ARCE ([id number])[facility] (SB[facility])[address] [place] [address] MCHC 27.9 % Low 30.5-36.0 [facility] Comment on above: Performed By: #### L [id number], [id number] ####Auger Operator: UNA ARCE ([id number])[facility] (SB[facility])[address] [place] [address] MCV (RBC) [Entitic vol] 78.6 fL Normal 77.0-99.0 S [facility] Comment on above: Performed By: #### L [id number], [id number] ####Auger Operator: UNA ARCE ([id number])LYNETTE BASHIRMarisol (SBHLAB)[address] [place] [address] Platelet mean volume (Bld) [Entitic vol] 9.7 fL Normal 9.0-12.7 [facility] Comment on above: Performed By: #### L [id number], [id number] ####Auger Operator: UNA ARCE ([phone])[facility]ENTERAngel [facility]N (SBHLAB)[address] Platelets (Bld) [#/Vol] 344 10*3/uL Normal 140-440 [facility] Comment on above: Performed By: #### L [id number], [id number] ####Auger Operator: UNA ARCE ([phone])[facility] (SB[facility])[address] [place] [address] RBC (Bld) [#/Vol] 3.46 10*6/uL Low 4.40-5.90 [facility] Comment on above: Performed By: #### L [id number], [id number] ####Auger Operator: UNA ARCE ([phone])[facility] BASHIRMarisol (SBHLAB)[address] [place] [address] WBC (Bld) [#/Vol] 10.3 10*3/uL Normal 3.6-10.7 [facility] Comment on above: Performed By: #### L [id number], [id number] ####Auger Operator: UNA ARCE ([phone])[facility] (SB[facility]AB)[address] COMPREHENSIVE METABOLIC PANE Anant 04-06-2025 Albumin [Mass/Vol] 2.6 g/dL Low 3.4-4.8 [facility] Comment on above: Performed By: #### L AB17, [id number] ####Auger Operator: UNA ARCE ([phone])[facility] (SBHLAB)[address] ALP [Catalytic activity/Vol] 63 U/L Normal 40-150 [facility] Comment on above: Performed By: #### L [id number], [id number] ####Auger Operator: [facility]NA ARCE ([id number])[facility]A [place] (SBHLAB)[address] [place] [address] [place] ALT [Catalytic activity/Vol] 6 U/L Normal <40 [facility] Comment on above: Performed By: #### L AB17, [id number] ####Auger Operator: [facility]NA ARCE ([id number])[facility] [place] (SBHLAB)[address] Anion gap [Moles/Vol] 13 mmol/L Normal 3-13 [facility] Comment on above: Performed By: #### L [id number], [id number] ####Auger Operator: UNA ARCE ([phone])[facility] [place] ([facility])[address] AST [Catalytic activity/Vol] 25 U/L Normal <34 [facility] Comment on above: Performed By: #### L AB17, [id number] ####Auger Operator: UNA ARCE ([id number])[facility] [place] ([facility])[address] Bilirubin [Mass/Vol] 1.7 mg/dL High <1.2 [facility] Comment on above: Performed By: #### L AB17, [id number] ####Auger Operator: UNA ARCE ([phone])[facility] [place] (SB[facility])155 [place] [address] [place] Calcium [Mass/Vol] 8.2 mg/dL Low 8.8-10.0 [facility] Comment on above: Performed By: #### L AB17, [id number] ####Auger Operator: UNA ARCE ([phone])[facility] [place] (SB[facility])[address] Chloride [Moles/Vol] 104 mmol/L Normal 98-107 [facility] Comment on above: Performed By: #### L AB17, [id number] ####Auger Operator: UNA ARCE ([phone])[facility] (SB[facility])[address] CO2 [Moles/Vol] 26 mmol/L Normal 23-31 [facility] Comment on above: Performed By: #### L AB17, [id number] ####Auger Operator: UNA ARCE ([id number])[facility] (SB[facility])[address] Creatinine [Mass/Vol] 1.44 mg/dL High 0.72-1.25 [facility] Comment on above: Performed By: #### L AB17, [id number] ####Auger Operator: UNA ARCE ([phone])[facility] (SB[facility])[address] GLOMERULAR FILTRATION RATE ML/MIN/1.73 SQ M.PREDICTED 46.4 mL/min/1.73m*2 Low >60.0 [facility] Comment on above: Result Comment: Calc ulation based on the Chronic Kidney Disease Epidemiology Collaboration (CKD-EPI) equation refit without adjustment for race Performed By: #### L AB17, [id number] ####Auger Operator: UNA ARCE ([id number])[facility] (SB[facility])[address] Glucose [Mass/Vol] 98 mg/dL Normal 82-115 [facility] Comment on above: Performed By: #### L AB17, [id number] ####Auger Operator: UNA ARCE ([id number])[facility] (SB[facility]AB)[address] Potassium [Moles/Vol] 4.2 mmol/L Normal 3.5-5.1 [facility] Comment on above: Result Comment: [facility] potassium values may be up to 0.5 mmol/L lower than serum values. Performed By: #### L AB17, [id number] ####Auger Operator: UNA MOHRCER ([phone])[facility] [place] (SB[facility])[address] Protein [Mass/Vol] 6.1 g/dL Low 6.4-8.3 [facility] Comment on above: Performed By: #### L AB17, [id number] ####Auger Operator: UNA BERMUDEZPEDRO ([id number])[facility] [place] (SB[facility])[address] Sodium [Moles/Vol] 143 mmol/L Normal 136-145 [facility] Comment on above: Performed By: #### L AB17, [id number] ####Auger Operator: UNA BERMUDEZPEDRO ([phone])[facility] [place] (SB[facility])[address] Urea nitrogen [Mass/Vol] 24 mg/dL High 9-23 [facility] Comment on above: Performed By: #### L AB17, [id number] ####Auger Operator: UNA BERMUDEZPEDRO ([phone])[facility] [place] ([facility])[address] ABDOMEN PELVIS WO IV CONT RASTon 04-06-2025 CT ABDOMEN PELVIS WO IV CONTRAST Normal [facility] CT Abdomen and Pelvis WO con traston 04-06-2025 [facility] Radiology Study observation (narrative) Lynette Balderrama alth CT Abdomen and Pelvis WO con trastOrdered By: Sergey Gooden on 04-06-2025 [facility] Phone: CT CHEST WO IV CONTRASTon CT CHEST WO IV CONTRAST Normal S [facility] CT Chest WO contraston 04-06 [facility] Radiology Study observation (narrative) Monishaangel Balderrama alth CT Chest WO contrastOrdered By: Cari Lazaro on 04-06-2025 [facility] Phone: Consulton 04-06-2025 Consult Normal [facility] Consult Normal [facility] ECG 12-LEADon 04-06-2025 ECG 12-LEAD IMPRESSION: Sinus arrhythmia Nonspecific intraventricular conduction delay Probable anterolateral infarct, old No previous ECG for comparison Electronically Signed On 04-06-2025 01:54:21 EDT by Maik Laird Normal [facility] IRON AND TIBCon 04-06-2025 IRON BINDING CAPACITY 381 ug/dL Normal 250-450 [facility] Comment on above: Performed By: #### L [id number] ####Auger Operator: UNA ARCE ([id number])[facility] [place] ([facility])[address] IRON SATURATION 49.3 % Normal 20.0-50.0 [facility] Comment on above: Performed By: #### L [id number] ####Auger Operator: UNA ARCE ([phone])[facility] [place] ([facility])[address] IRON, TOTAL 188 ug/dL High 65-175 [facility] Comment on above: Performed By: #### L [id number] ####Auger Operator: UNA ARCE ([phone])[facility] [place] (SB[facility])[address] Laboratory - Hematology and Cell countson 04-06-2025 Basophils (Bld) [#/Vol] 0.2 10*3/uL 0.0 - 0.2 10*3/uL [facility] Basophils/100 WBC (Bld) 2 % 0 - 2 % [facility] Lymphocytes (Bld) [#/Vol] 1.4 10*3/uL 1.0 - 4.3 10*3/uL [facility] Lymphocytes/100 WBC (Bld) 14 % Low 15 - 45 % [facility] Monocytes (Bld) [#/Vol] 0.7 10*3/uL 0.0 - 0.9 10*3/uL [facility] Monocytes/100 WBC (Bld) 7 % 5 - 13 % S [facility] RBC morphology finding Nom (Bld) abnormal [facility] MAGNESIUMon 04-06-2025 Magnesium [Mass/Vol] 1.8 mg/dL Normal 1.6-2.6 [facility] Comment on above: Result Comment: ORDE R COMMENTS:Higher values can be expected in females during menses. Performed By: #### L AB17, [id number] ####Auger Operator: UNA ARCE ([id number])[facility] (SB[facility])[address] MANUAL DIFFERENTIAL (CELLAVI BANDAR)on 04-06-2025 ANISOCYTOSIS PRESENCE IN BLOOD BY LIGHT MICROSCOPY Moderate Abnormal (none) [facility] Comment on above: Performed By: #### L [id number], [id number] ####Auger Operator: UNA ARCE ([id number])[facility] (SB[facility])[address] BAND NEUTROPHILS TOTAL PER COUNTED LEUKOCYTES BY MANUAL COUNT 1 Normal [facility] Comment on above: Performed By: #### L [id number], [id number] ####Auger Operator: UNA ARCE ([id number])[facility] [place] (SB[facility])[address] BANDS (10*3/UL) IN BLOOD-CELLAVISION 0.1 10*3/uL High <=0.0 [facility] Comment on above: Performed By: #### L [id number], [id number] ####Auger Operator: UNA ARCE ([id number])[facility] ([facility])[address] [place] [address] [place] BASOPHILS (10*3/UL) IN BLOOD-CELLAVISION 0.2 10*3/uL Normal 0.0-0.2 [facility] Comment on above: Performed By: #### L [id number], [id number] ####Auger Operator: UNA ARCE ([id number])[facility] (SB[facility])[address] BASOPHILS TOTAL PER COUNTED LEUKOCYTES BY MANUAL COUNT 2 Normal [facility] Comment on above: Performed By: #### L [id number], [id number] ####Auger Operator: UNA YAZMIN ([id number])[facility] [place] (SBHLAB)[address] [place] [address] [place] BASOPHILS/100 LEUKOCYTES IN BLOOD-CELLAVISION 2 % Normal 0-2 [facility] Comment on above: Performed By: #### L [id number], [id number] ####Auger Operator: UNA BERMUDEZPEDRO ([phone])[facility] [place] (SB[facility])[address] [place] [address] [place] BLASTS TOTAL PER COUNTED LEUKOCYTES BY MANUAL COUNT Normal [facility] Comment on above: Performed By: #### L [id number], [id number] ####Auger Operator: UNA BERMUDEZPEDRO ([phone])[facility] [place] (SB[facility])[address] [place] [address] [place] EOSINOPHILS TOTAL PER COUNTED LEUKOCYTES BY MANUAL COUNT Normal [facility] Comment on above: Performed By: #### L [id number], [id number] ####Auger Operator: UNA BERMUDEZPEDRO ([phone])[facility] [place] (SB[facility])[address] [place] [address] [place] HYPOCHROMIA (PRESENCE) IN BLOOD BY LIGHT MICROSCOPY Moderate Abnormal (none) [facility] Comment on above: Performed By: #### L [id number], [id number] ####Auger Operator: UNA BERMUDEZPEDRO ([phone])[facility] [place] (SB[facility])[address] [place] [address] [place] LYMPHOCYTES (10*3/UL) IN BLOOD-CELLAVISION 1.4 10*3/uL Normal 1.0-4.3 [facility] Comment on above: Performed By: #### L [id number], [id number] ####Auger Operator: UNA BERMUDEZPEDRO ([phone])[facility] [place] (SB[facility])[address] [place] [address] [place] LYMPHOCYTES TOTAL PER COUNTED LEUKOCYTES BY MANUAL COUNT 14 Normal [facility] Comment on above: Performed By: #### L [id number], [id number] ####Auger Operator: UNA STAUFFERMELANIE ([id number])[facility] [place] (SBHLAB)[address] [place] [address] [place] LYMPHOCYTES/100 LEUKOCYTES IN BLOOD-CELLAVISION 14 % Low 15-45 [facility] Comment on above: Performed By: #### L [id number], [id number] ####Auger Operator: UNA BERMUDEZPEDRO ([id number])[facility] [place] (SB[facility])[address] [place] [address] [place] METAMYELOCYTES TOTAL PER COUNTED LEUKOCYTES BY MANUAL COUNT Normal [facility] Comment on above: Performed By: #### L [id number], [id number] ####Auger Operator: UNA BERMUDEZPEDRO ([id number])[facility] [place] (SB[facility])[address] [place] [address] [place] MICROCYTES (PRESENCE) IN BLOOD BY LIGHT MICROSCOPY Slight Abnormal (none) [facility] Comment on above: Performed By: #### L [id number], [id number] ####Auger Operator: UNA BERMUDEZPEDRO ([id number])[facility] [place] (SB[facility])[address] [place] [address] [place] MONOCYTES (10*3/UL) IN BLOOD-CELLAVISION 0.7 10*3/uL Normal 0.0-0.9 [facility] Comment on above: Performed By: #### L [id number], [id number] ####Auger Operator: UNA ARCE ([id number])[facility] [place] (SB[facility])[address] [place] [address] [place] MONOCYTES TOTAL PER COUNTED LEUKOCYTES BY MANUAL COUNT 7 Normal [facility] Comment on above: Performed By: #### L [id number], [id number] ####Auger Operator: UNA STAUFFERMELANIE ([id number])[facility] [place] (SB[facility])[address] [place] [address] [place] MONOCYTES/100 LEUKOCYTES IN BLOOD-LUCIANA 7 % Normal 5-13 [facility] Comment on above: Performed By: #### L [id number], [id number] ####Auger Operator: UNA ARCE ([id number])[facility] [place] (SB[facility])[address] [place] [address] [place] MYELOCYTES COUNTED BY MANUAL COUNT Normal [facility] Comment on above: Performed By: #### L [id number], [id number] ####Auger Operator: UNA ARCE ([id number])[facility] [place] (SBHLAB)[address] [place] [address] [place] NEUTROPHILS BAND FORM/100 LEUKOCYTES IN BLOOD-CELLAVISI 1 % High <=0 [facility] Comment on above: Performed By: #### L [id number], [id number] ####Auger Operator: UNA ARCE ([phone])[facility] [place] ([facility])[address] [place] [address] [place] NEUTROPHILS TOTAL PER COUNTED LEUKOCYTES BY MANUAL COUNT 79 Normal [facility] Comment on above: Performed By: #### L [id number], [id number] ####Auger Operator: UNA ARCE ([phone])[facility] [place] (SBHLAB)[address] [place] [address] [place] NUCLEATED ERYTHROCYTES/100 LEUKOCTES IN BLOOD-CELLAVISION 1 % Normal 0-2 [facility] Comment on above: Performed By: #### L [id number], [id number] ####Auger Operator: UNA ARCE ([phone])[facility] [place] (SB[facility])[address] [place] [address] [place] POIKILOCYTOSIS (PRESENCE) IN BLOOD BY LIGHT MICROSCOPY Slight Abnormal (none) [facility] Comment on above: Performed By: #### L [id number], [id number] ####Auger Operator: UNA ARCE ([phone])[facility] [place] (SB[facility])[address] [place] [address] [place] PROMYELOCYTES TOTAL PER COUNTED LEUKOCYTES BY MANUAL COUNT Normal [facility] Comment on above: Performed By: #### L [id number], [id number] ####Auger Operator: UNA ARCE ([id number])[facility] [place] (SBHLAB)[address] [place] [address] [place] RBC MORPHOLOGY IN BLOOD abnormal Normal S [facility] Comment on above: Performed By: #### L [id number], [id number] ####Auger Operator: UNA ARCE ([id number])[facility] [place] ([facility])[address] [place] [address] [place] SEGMENTED NEUTROPHILS (10*3/UL) IN BLOOD-CELLAVISION 8.0 10*3/uL High 1.8-7.5 [facility] Comment on above: Performed By: #### L [id number], [id number] ####Auger Operator: UNA ARCE ([id number])[facility] [place] ([facility])[address] [place] [address] [place] SEGMENTED NEUTROPHILS/100 LEUKOCYTES-CE 77 % Normal 38-82 [facility] Comment on above: Performed By: #### L [id number], [id number] ####Auger Operator: UNA ARCE ([id number])[facility] [place] (SB[facility])[address] [place] [address] [place] STOMATOCYTES IN BLOOD BY LIGHT MICROSCOPY Slight Abnormal (none) [facility] Comment on above: Performed By: #### L [id number], [id number] ####Auger Operator: UNA ARCE ([id number])[facility] [place] ([facility])[address] [place] [address] [place] UNCLASSIFIED CELLS TOTAL PER COUNTED LEUKOCYTES BY MANUAL COUNT [facility] Comment on above: Performed By: #### L [id number], [id number] ####Auger Operator: UNA ARCE ([id number])[facility] [place] (SB[facility])[address] [place] [address] [place] VARIANT LYMPHOCYTES TOTAL PER COUNTED LEUKOCYTES BY MANUAL COUNT Normal [facility] Comment on above: Performed By: #### L [id number], [id number] ####Auger Operator: UNA ARCE ([id number])[facility] [place] (SB[facility])[address] [place] [address] [facility] Nursing Noteon 04-06-2025 Nursing Note Normal [facility] Nursing Note Transfused two pint of blood. No any allergic reaction seen.vital signs are within normal limits. Normal [facility] Progress Noteon 04-06-2025 Progress [facility] Progress Note Normal [facility] US Heart TransthoracicOrdere d By: Thomas Hinton on 04-06-2025 Ao Root Index 1.47 cm/m2 [facility] Work Phone: Aortic Root 3 cm [facility] Work Phone: Aortic valve Mean systole pressure gradient by US.doppler derived full Bernoulli 7 [facility] Work Phone: Aortic valve Orifice area by US 3.1 cm2 [facility] Work Phone: Aortic valve Peak systolic flow by US.doppler 1.3 m/s [facility] Work Phone: Ascending Aorta 3.1 [facility] Work Phone: Ascending Aorta Index 1.52 cm/m2 [facility] Work Phone: AV Area by Peak Velocity 1.5 cm2 [facility] Work Phone: AV Area by VTI 1.3 cm2 [facility] Work Phone: AV Peak Gradient 15 mmHg [facility] Work Phone: AV Peak Velocity 1.9 m/s [facility] Work Phone: AV Velocity Ratio 0.47 [facility] Work Phone: AV VTI 37.4 cm [facility] Work Phone: JULIET/BSA Peak Velocity 0.7 cm2/m2 [facility] Work Phone: JULIET/BSA VTI 0.6 cm2/m2 [facility] Work Phone: E/E' Lateral 23 [facility] Work Phone: Est. RA Pressure 15 mmHg [facility] Work Phone: Fractional Shortening 2D 8 % 28 - 44 % [facility] Work Phone: Interpretation and review of laboratory results Abnormal [facility] Work Phone: IVSd 1.1 cm Abnormal 0.6 - 1.0 cm [facility] Work Phone: LA Diameter 4 cm [facility] Work Phone: LA Size Index 1.96 cm/m2 [facility] Work Phone: LA Volume 4C 56 mL 18 - 58 mL [facility] Work Phone: LA Volume Index 4C 27 mL/m2 16 - 34 mL/m2 [facility] Work Phone: LA/AO Root Ratio 1.33 [facility] Work Phone: Left ventricular Ejection fraction by US.2D+Calculated by biplane method of disks 22 % Abnormal 55 - 100 % [facility] Work Phone: LV E' Lateral Velocity 5 cm/s [facility] Work Phone: LV EDV A2C 331 mL [facility] Work Phone: LV EDV A4C 293 mL [facility] Work Phone: LV EDV BP 315 mL Abnormal 67 - 155 mL [facility] Work Phone: LV EDV Index A2C 162 mL/m2 [facility] Work Phone: LV EDV Index A4C 144 mL/m2 [facility] Work Phone: LV EDV Index BP 154 mL/m2 [facility] Work Phone: LV Ejection Fraction A2C 26 % [facility] Work Phone: LV Ejection Fraction A4C 22 % [facility] Work Phone: LV ESV A2C 245 mL [facility] Work Phone: LV ESV A4C 229 mL [facility] Work Phone: LV ESV BP 247 mL Abnormal 22 - 58 mL [facility] Work Phone: LV ESV Index A2C 120 mL/m2 [facility] Work Phone: LV ESV Index A4C 112 mL/m2 [facility] Work Phone: LV ESV Index BP 121 mL/m2 [facility] Work Phone: LV Mass 2D 246.9 g Abnormal 88 - 224 g [facility] Work Phone: LV Mass 2D Index 121 g/m2 Abnormal 49 - 115 g/m2 [facility] Work Phone: LV RWT Ratio 0.3 [facility] Work Phone: LVIDd 6 cm Abnormal 4.2 - 5.9 cm [facility] Work Phone: LVIDd Index 2.94 cm/m2 [facility] Work Phone: LVIDs 5.5 cm [facility] Work Phone: LVIDs Index 2.7 cm/m2 [facility] Work Phone: LVOT Cardiac Output 3.2 liter/minute [facility] Work Phone: LVOT Diameter 2 cm [facility] Work Phone: LVOT Mean Gradient 2 mmHg [facility] Work Phone: LVOT Peak Gradient 3 mmHg [facility] Work Phone: LVOT Peak Velocity 0.9 m/s [facility] Work Phone: LVOT Stroke Volume Index 23.2 mL/m2 [facility] Work Phone: LVOT SV 47.4 ml [facility] Work Phone: LVOT VTI 15.1 cm [facility] Work Phone: LVOT:AV VTI Index 0.4 [facility] Work Phone: LVPWd 0.9 cm 0.6 - 1.0 cm [facility] Work Phone: MR VTI 139.2 cm [facility] Work Phone: MV A Velocity 1.12 m/s [facility] Work Phone: MV E Velocity 1.15 m/s [facility] Work Phone: MV E Wave Deceleration Time 179.2 ms [facility] Work Phone: MV E/A 1.03 [facility] Work Phone: MV Nyquist Velocity 36 cm/s [facility] Work Phone: MV Regurg Velocity PISA 4.6 m/s S [facility] [employer] Work Phone: RA Area 4C 34.5 mL [facility] Work Phone: RV Free Wall Peak S' 13 cm/s [facility] Work Phone: RVSP 66 mmHg [facility] Work Phone: TAPSE 2.4 cm 1.7 cm [facility] Work Phone: TR Max Velocity 3.58 m/s [facility] Work Phone: TR Peak Gradient 51 mmHg [facility] Work Phone: [facility] Work Phone: US Heart Transthoracicon CV CPACS BASIC METABOLIC PANELon 03-10 Anion gap [Moles/Vol] 8 mmol/L Normal 3-13 [facility] Comment on above: Performed By: #### L [id number], LAB15, [id number], LAB20, LAB69, [id number], [id number], LAB89 ####Auger Operator: UNA ARCE ([phone])[facility] [place] (SB[facility])[address] Calcium [Mass/Vol] 8.4 mg/dL Low 8.8-10.0 [facility] Comment on above: Performed By: #### L AB67, LAB15, [id number], LAB20, LAB69, [id number], [id number], LAB89 ####Auger Operator: UNA ARCE ([id number])[facility] (SBHLAB)[address] Chloride [Moles/Vol] 105 mmol/L Normal 98-107 [facility] Comment on above: Performed By: #### L AB67, LAB15, GYM509, LAB20, LAB69, [id number], [id number], LAB89 ####Auger Operator: UNA ARCE ([id number])[facility] (SB[facility])[address] CO2 [Moles/Vol] 27 mmol/L Normal 23-31 [facility] Comment on above: Performed By: #### L AB67, LAB15, [id number], LAB20, LAB69, [id number], [id number], LAB89 ####Auger Operator: UNA ARCE ([id number])[facility] (SB[facility])[address] Creatinine [Mass/Vol] 1.46 mg/dL High 0.72-1.25 [facility] Comment on above: Performed By: #### L AB67, LAB15, [id number], LAB20, LAB69, [id number], [id number], LAB89 ####Auger Operator: UNA ARCE ([id number])[facility] ([facility])[address] GLOMERULAR FILTRATION RATE ML/MIN/1.73 SQ M.PREDICTED 45.7 mL/min/1.73m*2 Low >60.0 [facility] Comment on above: Result Comment: Calc ulation based on the Chronic Kidney Disease Epidemiology Collaboration (CKD-EPI) equation refit without adjustment for race Performed By: #### L AB67, LAB15, [id number], LAB20, LAB69, [id number], [id number], LAB89 ####Auger Operator: UNA ARCE ([id number])[facility] ([facility])[address] Glucose [Mass/Vol] 108 mg/dL Normal 82-115 [facility] Comment on above: Performed By: #### L AB67, LAB15, UTC957, LAB20, LAB69, [id number], [id number], LAB89 ####Auger Operator: UAN ARCE ([id number])[facility] (SB[facility])[address] Potassium [Moles/Vol] 4.5 mmol/L Normal 3.5-5.1 [facility] Comment on above: Result Comment: [facility] potassium values may be up to 0.5 mmol/L lower than serum values. Performed By: #### L AB67, LAB15, ISZ539, LAB20, LAB69, [id number], [id number], LAB89 ####Auger Operator: UNA ARCE ([id number])[facility] Sodium [Moles/Vol] 140 mmol/L Normal 136-145 [facility] Comment on above: Performed By: #### L AB67, LAB15, IFF906, LAB20, LAB69, [id number], [id number], LAB89 ####Auger Operator: UNA ARCE ([id number])[facility] (HLAB)[address] Urea nitrogen [Mass/Vol] 24 mg/dL High 9-23 [facility] Comment on above: Performed By: #### L AB67, LAB15, YWZ116, LAB20, LAB69, [id number], [id number], LAB89 ####Auger Operator: UNA ARCE ([phone])[facility] (HLAB)[address] BLOOD TYPE AND SCREEN GELon 04-05-2025 ABO GROUPING A Normal [facility] Comment on above: Performed By: #### L [id number] ####Auger Operator: UNA ARCE ([phone])[facility] ([facility])[address] [place] [address] RH TYPE IN BLOOD Negative Normal [facility] Comment on above: Performed By: #### L [id number] ####Auger Operator: UNA ARCE ([id number])[facility] ([facility])[address] CBC WITH AUTO DIFFERENTIALon 04-05-2025 Erythrocyte distribution width (RBC) [Ratio] 19.9 % High 11.5-15.0 [facility] Comment on above: Performed By: #### L [id number], [id number], [id number] ####Auger Operator: UNA ARCE ([id number])[facility] ([facility])[address] [place] [address] Hematocrit (Bld) [Volume fraction] 20.7 % Low 40.0-52.0 [facility] Comment on above: Performed By: #### L [id number], [id number], [id number] ####Auger Operator: UNA ARCE ([id number])[facility] ([facility])[address] [place] [address] Hemoglobin (Bld) [Mass/Vol] 5.5 g/dL Critically low 13.0-18.0 [facility] Comment on above: Performed By: #### L AB296, [id number], [id number] ####Auger Operator: UNA ARCE ([id number])[facility] [place] [address] MCH (RBC) [Entitic mass] 19.4 pg Low 26.0-34.0 [facility] Comment on above: Performed By: #### L AB296, [id number], [id number] ####Auger Operator: UNA ARCE ([id number])[facility] ([facility])[address] MCHC 26.6 % Low 30.5-36.0 [facility] Comment on above: Performed By: #### L AB296, [id number], [id number] ####Auger Operator: UNA ARCE ([phone])MONISHAA MCKAYN ([facility])[address] MCV (RBC) [Entitic vol] 73.1 fL Low 77.0-99.0 [facility] Comment on above: Performed By: #### L AB296, [id number], [id number] ####Auger Operator: UNA ARCE ([id number])[facility] ([facility])[address] Platelet mean volume (Bld) [Entitic vol] 9.4 fL Normal 9.0-12.7 [facility] Comment on above: Performed By: #### Gilbert AB296, [id number], [id number] ####Auger Operator: UNA ARCE ([id number])[facility] ([facility])[address] Platelets (Bld) [#/Vol] 358 10*3/uL Normal 140-440 [facility] Comment on above: Performed By: #### L AB296, [id number], [id number] ####Auger Operator: UNA ARCE ([id number])[facility] ([facility])[address] RBC (Bld) [#/Vol] 2.83 10*6/uL Low 4.40-5.90 [facility] Comment on above: Performed By: #### L AB296, [id number], [id number] ####Auger Operator: UNA ARCE ([id number])[facility] [place] ([facility])[address] WBC (Bld) [#/Vol] 10.0 10*3/uL Normal 3.6-10.7 [facility] Comment on above: Performed By: #### L AB296, [id number], [id number] ####Auger Operator: UNA ARCE ([id number])[facility] ([facility])[address] [place] [address] ED Provider Noteon ED Provider Note Normal [facility] FERRITINon 04-05-2025 Ferritin [Mass/Vol] 19 ng/mL Low 22-275 [facility] Comment on above: Result Comment: YARELI [place] COMMENTS:Ferritin levels below 10 ng/mL have been reported as indicative of iron deficiency anemia. Performed By: #### L [id number], LAB18, LAB68 ####Auger Operator: UNA ARCE ([id number])[facility] ([facility])[address] [place] [address] FOLATEon 04-05-2025 FOLATE RESULT 13.7 ng/mL Normal 7.0-31.4 [facility] Comment on above: Performed By: #### L AB67, LAB15, ERE930, LAB20, LAB69, [id number], [id number], LAB89 ####Auger Operator: UNA ARCE ([id number])[facility] ([facility])[address] [place] [address] HAPTOGLOBINon 04-05-2025 HAPTOGLOBIN 226 mg/dL Normal 50-270 [facility] Comment on above: Performed By: #### L AB67, LAB15, [id number], LAB20, LAB69, AWD192, [id number], LAB89 ####Auger Operator: UNA ARCE ([id number])[facility] ([facility])[address] [place] [address] HEPATIC FUNCTION PANELon Albumin [Mass/Vol] 2.7 g/dL Low 3.4-4.8 [facility] Comment on above: Performed By: #### L AB67, LAB15, [id number], LAB20, LAB69, [id number], [id number], LAB89 ####Auger Operator: UNA ARCE ([id number])[facility] ([facility])[address] ALP [Catalytic activity/Vol] 65 U/L Normal 40-150 [facility] Comment on above: Performed By: #### L AB67, LAB15, [id number], LAB20, LAB69, BHR395, [id number], LAB89 ####Auger Operator: UNA ARCE ([id number])[facility] ([facility])[address] ALT [Catalytic activity/Vol] 7 U/L Normal <40 [facility] Comment on above: Performed By: #### L AB67, LAB15, TWE827, LAB20, LAB69, WDM014, [id number], LAB89 ####Auger Operator: UNA ARCE ([id number])[facility] AST [Catalytic activity/Vol] 22 U/L Normal <34 [facility] Comment on above: Performed By: #### L AB67, LAB15, [id number], LAB20, LAB69, BUQ882, [id number], LAB89 ####Auger Operator: UNA ARCE ([id number])[facility] ([facility])[address] Bilirubin [Mass/Vol] 0.5 mg/dL Normal <1.2 [facility] Comment on above: Performed By: #### L AB67, LAB15, YMJ599, LAB20, LAB69, IVR482, [id number], LAB89 ####Auger Operator: UNA ARCE ([phone])[facility] ([facility])[address] [place] [address] [place] Bilirubin.indirect [Mass/Vol] 0.2 mg/dL Normal <0.5 [facility] Comment on above: Performed By: #### L AB67, LAB15, DHI800, LAB20, LAB69, VZA509, [id number], LAB89 ####Auger Operator: UNA ARCE ([id number])[facility] ([facility] [place] [address] Protein [Mass/Vol] 6.4 g/dL Normal 6.4-8.3 [facility] Comment on above: Result Comment: Seru m protein values are higher than plasma values. Samples from recumbent persons are lower by up to 0.5 g/dL as compared to ambulatory persons. After 60 years values are lower by up to 0.2 g/dL. Performed By: #### L AB67, LAB15, [id number], LAB20, LAB69, GBR832, [id number], LAB89 ####Auger Operator: UNA ARCE ([id number])[facility] ([facility])[address] [place] [address] HIGH SENSITIVITY TROPONIN, S ERIAL BASELINEon 04-05-2025 TROPONIN HS SERIAL BASELINE 29 ng/L Normal <=35 [facility] Comment on above: Result Comment: In i ndividuals presenting with symptoms > 2h, a baseline troponin <= 5 ng/L suggests acutecardiac injury is unlikely and further serial testing is generally not indicated. Performed By: #### L [id number] ####Auger Operator: UNA ARCE ([id number])[facility] ([facility])[address] [place] [address] TROPONIN HS SERIAL BASELINE 30 ng/L Normal <=35 [facility] Comment on above: Result Comment: In i ndividuals presenting with symptoms > 2h, a baseline troponin <= 5 ng/L suggests acutecardiac injury is unlikely and further serial testing is generally not indicated. Performed By: #### L AB67, LAB15, KXS144, LAB20, LAB69, [id number], [id number], LAB89 ####Auger Operator: UNA ARCE ([id number])[facility] ([facility])[address] [place] [address] HIGH SENSITIVITY TROPONIN, S ERIAL, SECOND TESTon 04-05-2025 2H TROPONIN HS (SERIAL 2ND TROPONIN) 28 ng/L Normal <=35 [facility] Comment on above: Result Comment: 2h t roponin (2nd troponin) samples collected between 1h 40 min and 2h and 20 min of the baseline collection time can be utilized to interpret delta troponins as per [facility] algorithms. Samples collected outside this timeframe need to be interpreted clinically.Rising or falling troponin delta below 2 ng/L as compared to baseline value suggests thatacute cardiac injury is unlikely. Performed By: #### L [id number], LAB18, LAB68 ####Auger Operator: UNA ARCE ([id number])[facility]ENTER[facility] [place] ([facility])[address] LIPID PANELon 04-05-2025 Cholesterol [Mass/Vol] 89 mg/dL Normal <200 [facility] Comment on above: Performed By: #### Gilbert [id number], LAB18, LAB68 ####Auger Operator: UNA ARCE ([phone])[facility]ENTERAngel [place] ([facility])[address] Cholesterol in HDL [Mass/Vol] 29 mg/dL Low >=60 [facility] Comment on above: Performed By: #### Gilbert [id number], LAB18, LAB68 ####Auger Operator: UNA ARCE ([id number])[facility] ([facility])[address] Cholesterol.total/Choles terol in HDL [Mass ratio] 3 {ratio} Normal [facility] Comment on above: Result Comment: Ref Range:< 3 Low Risk for CHD3-6 Mod Risk for CHD> 6 High Risk for CHD Performed By: #### L [id number], LAB18, LAB68 ####Auger Operator: UNA ARCE ([id number])[facility]ENTERAngel [facility] ([facility])[address] LOW DENSITY LIPOPROTEIN 48 mg/dL Normal 0-<100 [facility] Comment on above: Performed By: #### L [id number], LAB18, LAB68 ####Auger Operator: UNA ARCE ([id number])[facility] ([facility])[address] NON-HDL CHOLESTEROL, CALCULATED 60 Normal <130 [facility] Comment on above: Performed By: #### L [id number], LAB18, LAB68 ####Auger Operator: UNA ARCE ([id number])[facility] [place] ([facility])[address] Triglyceride [Mass/Vol] 60 mg/dL Normal <150 [facility] Comment on above: Performed By: #### L [id number], LAB18, LAB68 ####Auger Operator: UNA ARCE ([id number])[facility] ([facility])[address] VERY LOW DENSITY LIPOPROTEIN, CALCULATED 12 mg/dL Normal <=30 [facility] Comment on above: Performed By: #### L [id number], LAB18, LAB68 ####Auger Operator: UNA ARCE ([id number])[facility] [place] ([facility])[address] MANUAL DIFFERENTIAL (CELLAVI BANDAR)on 04-05-2025 ANISOCYTOSIS PRESENCE IN BLOOD BY LIGHT MICROSCOPY Moderate Abnormal (none) [facility] Comment on above: Performed By: #### L AB296, [id number], [id number] ####Auger Operator: UNA ARCE ([id number])[facility] ([facility])[address] [place] [address] BAND NEUTROPHILS TOTAL PER COUNTED LEUKOCYTES BY MANUAL COUNT [facility] Comment on above: Performed By: #### L AB296, [id number], [id number] ####Auger Operator: UNA ARCE ([id number])[facility] [place] ([facility])[address] BASOPHILS TOTAL PER COUNTED LEUKOCYTES BY MANUAL COUNT [facility] Comment on above: Performed By: #### L AB296, [id number], [id number] ####Auger Operator: UNA ARCE ([id number])[facility] [place] ([facility])[address] [place] [address] [place] BLASTS TOTAL PER COUNTED LEUKOCYTES BY MANUAL COUNT Normal [facility] Comment on above: Performed By: #### L AB296, [id number], [id number] ####Auger Operator: UNA ARCE ([id number])[facility] [place] ([facility])[address] EOSINOPHILS TOTAL PER COUNTED LEUKOCYTES BY MANUAL COUNT Normal [facility] Comment on above: Performed By: #### L AB296, [id number], [id number] ####Auger Operator: UNA ARCE ([id number])[facility] [place] ([facility])[address] HYPOCHROMIA (PRESENCE) IN BLOOD BY LIGHT MICROSCOPY Moderate Abnormal (none) [facility] Comment on above: Performed By: #### L AB296, [id number], [id number] ####Auger Operator: UNA ARCE ([id number])[facility] [place] ([facility])[address] [place] [address] [place] LYMPHOCYTES (10*3/UL) IN BLOOD-CELLAVISION 1.4 10*3/uL Normal 1.0-4.3 [facility] Comment on above: Performed By: #### L AB296, [id number], [id number] ####Auger Operator: UNA ARCE ([id number])[facility] [place] ([facility])[address] [place] [address] [place] LYMPHOCYTES TOTAL PER COUNTED LEUKOCYTES BY MANUAL COUNT 15 Normal [facility] Comment on above: Performed By: #### L AB296, [id number], [id number] ####Auger Operator: UNA ARCE ([id number])[facility] [place] ([facility])[address] [place] [address] [place] LYMPHOCYTES/100 LEUKOCYTES IN BLOOD-CELLAVISION 14 % Low 15-45 [facility] Comment on above: Performed By: #### L AB296, [id number], [id number] ####Auger Operator: UNA ARCE ([id number])[facility] [place] ([facility])[address] [place] [address] [place] METAMYELOCYTES TOTAL PER COUNTED LEUKOCYTES BY MANUAL COUNT Normal [facility] Comment on above: Performed By: #### L AB296, [id number], [id number] ####Auger Operator: UNA BERMUDEZPEDRO ([id number])[facility] [place] ([facility])[address] [place] [address] [place] MICROCYTES (PRESENCE) IN BLOOD BY LIGHT MICROSCOPY Slight Abnormal (none) [facility] Comment on above: Performed By: #### L AB296, [id number], [id number] ####Auger Operator: UNA BERMUDEZPEDRO ([phone])[facility] [place] ([facility])[address] [place] [address] [place] MONOCYTES (10*3/UL) IN BLOOD-CELLAVISION 1.3 10*3/uL High 0.0-0.9 [facility] Comment on above: Performed By: #### L AB296, [id number], [id number] ####Auger Operator: UNA BERMUDEZPEDRO ([id number])[facility] [place] ([facility])[address] [place] [address] [place] MONOCYTES TOTAL PER COUNTED LEUKOCYTES BY MANUAL COUNT 14 Normal [facility] Comment on above: Performed By: #### L AB296, [id number], [id number] ####Auger Operator: UNA BERMUDEZPEDRO ([phone])[facility] [place] ([facility])[address] [place] [address] [place] MONOCYTES/100 LEUKOCYTES IN BLOOD-LUCIANA 13 % Normal 5-13 [facility] Comment on above: Performed By: #### L AB296, [id number], [id number] ####Auger Operator: UNA STAUFFERMELANIE ([id number])[facility] [place] ([facility])[address] [place] [address] [place] MYELOCYTES COUNTED BY MANUAL COUNT Normal [facility] Comment on above: Performed By: #### L AB296, [id number], [id number] ####Auger Operator: UNA YAZMIN ([id number])[facility] [place] ([facility])[address] [place] [address] [place] NEUTROPHILS TOTAL PER COUNTED LEUKOCYTES BY MANUAL COUNT 76 Normal [facility] Comment on above: Performed By: #### L AB296, [id number], [id number] ####Auger Operator: UNA YAZMIN ([id number])[facility] [place] ([facility])[address] [place] [address] [place] NUCLEATED ERYTHROCYTES/100 LEUKOCTES IN BLOOD-CELLAVISION 1 % Normal 0-2 [facility] Comment on above: Performed By: #### L AB296, [id number], [id number] ####Auger Operator: UNANAJEL ARCE ([id number])[facility] [place] ([facility])[address] [place] [address] [place] OVALOCYTES PRESENCE IN BLOOD BY LIGHT MICROSCOPY Slight Abnormal (none) [facility] Comment on above: Performed By: #### L AB296, [id number], [id number] ####Auger Operator: UNA YAZMIN ([id number])[facility] [place] ([facility])[address] [place] [address] [place] POIKILOCYTOSIS (PRESENCE) IN BLOOD BY LIGHT MICROSCOPY Moderate Abnormal (none) [facility] Comment on above: Performed By: #### L AB296, [id number], [id number] ####Auger Operator: UNA YAZMIN ([id number])[facility] [place] ([facility])[address] [place] [address] [place] PROMYELOCYTES TOTAL PER COUNTED LEUKOCYTES BY MANUAL COUNT Normal [facility] Comment on above: Performed By: #### L AB296, [id number], [id number] ####Auger Operator: UNA YAZMIN ([id number])[facility] [place] ([facility])[address] [place] [address] [place] RBC MORPHOLOGY IN BLOOD abnormal Normal [facility] Comment on above: Performed By: #### L AB296, [id number], [id number] ####Auger Operator: UNA ARCE ([id number])[facility] [place] ([facility])[address] [place] [address] [place] SEGMENTED NEUTROPHILS (10*3/UL) IN BLOOD-CELLAVISION 7.2 10*3/uL Normal 1.8-7.5 [facility] Comment on above: Performed By: #### L AB296, [id number], [id number] ####Auger Operator: UNA ARCE ([phone])[facility] [place] ([facility])[address] [place] [address] [place] SEGMENTED NEUTROPHILS/100 LEUKOCYTES-CE 72 % Normal 38-82 [facility] Comment on above: Performed By: #### L AB296, [id number], [id number] ####Auger Operator: UNA ARCE ([phone])[facility] [place] ([facility])[address] [place] [address] [place] STOMATOCYTES IN BLOOD BY LIGHT MICROSCOPY Moderate Abnormal (none) [facility] Comment on above: Performed By: #### L AB296, [id number], [id number] ####Auger Operator: UNA ARCE ([id number])[facility] [place] ([facility])[address] TARGET CELLS IN BLOOD BY LIGHT MICROSCOPY Slight Abnormal (none) [facility] Comment on above: Performed By: #### L AB296, [id number], [id number] ####Auger Operator: UNA ARCE ([phone])[facility] [place] ([facility])[address] [place] [address] [place] UNCLASSIFIED CELLS TOTAL PER COUNTED LEUKOCYTES BY MANUAL COUNT Normal [facility] Comment on above: Performed By: #### L AB296, [id number], [id number] ####Auger Operator: UNA ARCE ([id number])[facility] [place] ([facility])[address] [place] [address] [place] VARIANT LYMPHOCYTES TOTAL PER COUNTED LEUKOCYTES BY MANUAL COUNT Normal [facility] Comment on above: Performed By: #### L AB296, [id number], [id number] ####Auger Operator: UNA ARCE ([phone])LYNETTE BASHIRMarisol ([facility])[address] NT PRO BNPon 04-05-2025 Natriuretic peptide B (Bld) [Mass/Vol] 8438 pg/mL High <450 [facility] Comment on above: Performed By: #### L AB67, LAB15, [id number], LAB20, LAB69, [id number], [id number], LAB89 ####Auger Operator: UNA ARCE ([id number])[facility]ENTERAngel SANCHEZLUIS ([facility])[address] RETICULOCYTESon 04-05-2025 Reticulocytes/100 RBC (Bld) 2.31 % Normal [facility] Comment on above: Result Comment: Newb orn < 5%Adults 0.4 - 2.0% Performed By: #### L AB296, [id number], [id number] ####Auger Operator: UNA ARCE ([phone])[facility] ([facility])[address] THYROID STIMULATING HORMONEo n 04-05-2025 THYROID STIMULATING HORMONE 10.19 uIU/mL High 0.35-4.94 [facility] Comment on above: Performed By: #### L AB67, LAB15, [id number], LAB20, LAB69, NKS624, [id number], LAB89 ####Auger Operator: UNA ARCE ([id number])[facility]LUIS ([facility])[address] VITAMIN B12on 04-05-2025 Cobalamin (Vitamin B12) [Mass/Vol] 817 pg/mL High 213-816 [facility] Comment on above: Performed By: #### L AB67, LAB15, PEX932, LAB20, LAB69, [id number], [id number], LAB89 ####Auger Operator: UNA ARCE ([id number])LYNETTE [place]OTO ([facility])[address] Vital Signs Date Time Vital Sign Value Performing Clinician Annalisai gerson 07-19-2025 19:12-0500 Diastolic blood pressure 78 mm[Hg] Josefina Rose MD Work Phone: [facility] [employer] 07-19-2025 19:12-0500 Heart rate 75 /min Josefina Rose MD Work Phone: [facility] [employer] 07-19-2025 19:12-0500 Respiratory rate 17 /min Josefina Rose MD Work Phone: [facility] [employer] 07-19-2025 19:12-0500 SaO2% (BldA) [Mass fraction] 100 % Josefina Rose MD Work Phone: [facility] [employer] 07-19-2025 19:12-0500 Systolic blood pressure 117 mm[Hg] Josefina Rose MD Work Phone: [facility] [employer] 07-19-2025 17:02-0500 Body temperature 98.1 [degF] Josefina Rose MD Work Phone: [facility] [employer] 06-22-2025 02:11-0400 Diastolic blood pressure 57 mm[Hg] Sagar [facility]ash [facility] 06-22-2025 02:11-0400 Heart rate 54 /min Sagar Gombash DO Work Phone: [employer] 06-22-2025 02:11-0400 Respiratory rate 18 /min Sagar Gombash DO Work Phone: [facility] [employer] 06-22-2025 02:11-0400 SaO2% (BldA) [Mass fraction] 97 % Sagar Gombash DO Work Phone: [facility] 06-22-2025 02:11-0400 Systolic blood pressure 105 mm[Hg] Sagar Gombash DO Work Phone: [facility] [employer] 06-22-2025 00:31-0400 Body temperature 98.2 [degF] Sagar Gombash DO Work Phone: [facility] [employer] 06-17-2025 10:47-0400 SaO2% (BldA) [Mass fraction] 95 % Eber Hess MD Work Phone: [facility] [employer] 06-17-2025 10:27-0400 Body height 174 cm Eber Hess MD Work Phone: [facility] [employer] 06-17-2025 10:27-0400 Body mass index (BMI) [Ratio] 27.3 kg/m2 Eber Hess MD Work Phone: [facility] [employer] 06-17-2025 10:27-0400 Body weight 82.64 kg Eber Hess MD Work Phone: [facility] [employer] 06-17-2025 10:27-0400 Diastolic blood pressure 58 mm[Hg] Eber Hess MD Work Phone: [facility] [employer] 06-17-2025 10:27-0400 Heart rate 70 /min Eber Hess MD Work Phone: [facility] [employer] 06-17-2025 10:27-0400 Systolic blood pressure 110 mm[Hg] Eber Hess MD Work Phone: [facility] [employer] 05-03-2025 10:13-0400 Body height 174 cm Alejandro Jonnyynkary APR N - SALES CENTER MANAGER Work Phone: [facility] [employer] 05-03-2025 10:13-0400 Body mass index (BMI) [Ratio] 28.09 kg/m2 Alejandro Queen BUSINESS SYSTEMS ARCHITECT - SALES CENTER MANAGER Work Phone: [facility] [employer] 05-03-2025 10:13-0400 Body weight 85.05 kg Alejandro Jonnyynick APR N - SALES CENTER MANAGER Work Phone: [facility] [employer] 05-03-2025 10:13-0400 Diastolic blood pressure 62 mm[Hg] Alejandro Jonnyynick BUSINESS SYSTEMS ARCHITECT - SALES CENTER MANAGER Work Phone: [facility] [employer] 05-03-2025 10:13-0400 Heart rate 66 /min Alejandro Jonnyynick APR N - SALES CENTER MANAGER Work Phone: [facility] [employer] 05-03-2025 10:13-0400 Systolic blood pressure 106 mm[Hg] Alejandro Queen BUSINESS SYSTEMS ARCHITECT - SALES CENTER MANAGER Work Phone: [employer] 04-17-2025 08:40-0400 Diastolic blood pressure 50 mm[Hg] Rowena Aguilar DO Work Phone: [facility] 04-17-2025 08:40-0400 Heart rate 62 /min Rowena Eliasffey DO Work Phone: [facility] 04-17-2025 08:40-0400 Respiratory rate 17 /min Rowena Aguilar DO Work Phone: [facility] 04-17-2025 08:40-0400 SaO2% (BldA) [Mass fraction] 96 % Rowena Lintony DO Work Phone: [facility] 04-17-2025 08:40-0400 Systolic blood pressure 104 mm[Hg] Rowena Lintony DO Work Phone: [employer] 04-17-2025 05:00-0400 Body mass index (BMI) [Ratio] 31.14 kg/m2 Rowena Lintony DO Work Phone: [facility] 04-17-2025 05:00-0400 Body weight 92.9 kg Rowena Aguilar DO Work Phone: [facility] 04-17-2025 01:47-0400 Body temperature 97.2 [degF] Rowena Linotny DO Work Phone: [employer] 04-16-2025 16:41-0400 Body height 172.7 cm Rowena Lintony DO Work Phone: [facility] 04-13-2025 04:37-0400 SaO2% (BldA) [Mass fraction] 95.1 % Rowena Lintony DO Work Phone: [employer] 04-08-2025 21:01-0400 SaO2% (BldA) [Mass fraction] 97 % Rowena Lintony DO Work Phone: [facility] 04-08-2025 17:02-0400 SaO2% (BldA) [Mass fraction] 96.1 % Rowena Aguilar DO Work Phone: [facility] Encounters Encounter Date Encounter Type Care Provider Facility Start: 07-19-2025 End: 07-19-2025 Emergency department patient visit PCP NONE [facility] Comment on above: Symptomatic anemia ( Primary Dx) Start: 07-19-2025 ambulatory Ravi MENSAH Facili ty:[facility] Start: 07-07-2025 ambulatory Ravi Murray ty:[facility] Start: 07-06-2025 End: 07-07-2025 Telephone encounter Eber Hess MD Work Phone: [facility] [employer] Start: 07-05-2025 ambulatory Ravi MENSAH Facili ty:[facility] Start: 06-28-2025 ambulatory Ravi MENSAH Facili ty:[facility] Start: 06-24-2025 End: 06-24-2025 Documentation procedure Yamilka Holloway BUSINESS SYSTEMS ARCHITECT - SALES CENTER MANAGER Work Phone: [facility] [place] Start: 06-24-2025 End: 06-25-2025 Telephone encounter Eber Hess MD Work Phone: [facility] [employer] Comment on above: Release of Informati on (BMP, vitals, and medication notes ) Start: 06-24-2025 ambulatory Ravi MENSAH Facili ty:[facility] Start: 06-21-2025 End: 06-22-2025 Emergency department patient visit Sagar Gilliam DO Work Phone: [facility] ED Comment on above: Anemia due to chroni c kidney disease, unspecified CKD stage (Primary Dx) Start: 06-21-2025 [facility] Facility :[facility] Start: 06-17-2025 End: 06-17-2025 ambulatory [facility] Start: 06-17-2025 End: 06-17-2025 ambulatory [facility] Start: 06-17-2025 End: 06-17-2025 Office outpatient visit 40 minutes Eber Hess MD Work Phone: [facility] [place] Comment on above: Chronic systolic hea rt failure (HCC) (Primary Dx) Start: 05-06-2025 End: 05-12-2025 Home visit new pt unstabl/signif new prob 75 min Yamilkapradeep Holloway BUSINESS SYSTEMS ARCHITECT - SALES CENTER MANAGER Work Phone: [facility] [place] Comment on above: Palliative care enco unter (Primary Dx); Pleural effusion; Acute on chronic heart failure, unspecified heart failure type (HCC); Debility Start: 05-03-2025 End: 05-03-2025 ambulatory ALEJANDRO QUEEN [facility] Start: 05-03-2025 End: 05-03-2025 Office outpatient visit 25 minutes Alejandro Queen BUSINESS SYSTEMS ARCHITECT - SALES CENTER MANAGER Work Phone: [facility] - [place] Comment on above: Chronic systolic hea rt failure (HCC) (Primary Dx); Coronary artery disease involving ione coronary artery of ione heart without angina pectoris; Pleural effusion; Acute kidney injury superimposed on chronic kidney disease (HCC) (HCC); 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 chronic kidney disease (HCC); PAC (premature atrial contraction); Abnormal CAT scan Start: 04-19-2025 End: 04-19-2025 Orders Only Katie Engle RN [facility] Palliative [facility] [place] Comment on above: Acute congestive hea rt failure, unspecified heart failure type (HCC) (Primary Dx) Start: 04-05-2025 End: 04-17-2025 Evaluation and management of inpatient Rowena Aguilar Work Phone: [facility] Cardiac Progressive Care Unit PCU 2E Start: 11-07-2020 End: 11-07-[address] [facility]-Immunizations Procedures Date Procedure Procedure Detail Performing Clinician Start: 07-19-2025 Blood typing serologic abo Josefina Rose MD Work Phone: Start: 07-19-2025 End: 07-19-2025 TRANSFUSE RED BLOOD CELLS Josefina Rose MD Work Phone: Start: 07-19-2025 Antibody screen ALEJANDRO QUEEN Comment on above: Performed By: #### L [id number] ####Auger Operator: UNA NAVARRO ([id number])[facility] ([facility])[address] Start: 07-19-2025 Blood count complete auto&auto [...] on above: Performed By: #### L [id number] ####Auger Operator: UNA NAVARRO ([id number])[facility] ([facility])[address] Start: 06-21-2025 Basic metabolic pane l [...] Phone: Start: 04-15-2025 BEDSIDE SPIROMETRY Lizeth Farmer BUSINESS SYSTEMS ARCHITECT - SALES CENTER MANAGER Work Phone: Start: 04-15-2025 Blood occult peroxid ase actv qual feces 1-3 spec Albaro Hernández MD Work Phone: Start: 04-15-2025 Radiologic exam ches t single view Yesi Farmer BUSINESS SYSTEMS ARCHITECT - SALES CENTER MANAGER Work Phone: Start: 04-15-2025 Comprehensive metabo lic panel Precious Lewis MD Work Phone: Start: 04-15-2025 Manual Differential panel - Blood Precious Lewis MD Work Phone: Start: 04-14-2025 OXYGEN THERAPY Precious dawn MD Work Phone: Start: 04-14-2025 Thoracentesis needle /cath pleura w/imaging Yesi Farmer BUSINESS SYSTEMS ARCHITECT - SALES CENTER MANAGER Work Phone: Start: 04-14-2025 Comprehensive metabo lic panel Precious Lewis MD Work Phone: Start: 04-14-2025 Manual Differential panel - Blood Precious Lewis MD Work Phone: Start: 04-13-2025 OXYGEN THERAPY Precious dawn MD Work Phone: Start: 04-13-2025 Radiologic exam ches t single view Marian Casarez BUSINESS SYSTEMS ARCHITECT - SALES CENTER MANAGER Work Phone: Start: 04-13-2025 Ecg routine ecg w/le ast 12 lds trcg only w/o i&r Marian Hawkinsmark BUSINESS SYSTEMS ARCHITECT - [facility] Work Phone: Start: 04-13-2025 Blood gases any comb ination ph pco2 po2 co2 hco3 Yesi Farmer BUSINESS SYSTEMS ARCHITECT [facility] Work Phone: Start: 04-13-2025 Comprehensive metabo [...] exam ches t single view Alejandro Queen BUSINESS SYSTEMS ARCHITECT [facility] Work Phone: Start: 04-11-2025 OXYGEN THERAPY [...] on above: Performed By: #### L [id number] ####Auger Operator: UNA NAVARRO ([id number])[facility] ([facility])[address] Start: 04-05-2025 ABO and Rh group [...] Activity Detail Author Start: 04-05-2030 Lipid panel [employer] Start: 06-21-2026 Creatinine measurement Creatinine Level [employer] Start: 06-21-2026 Potassium measurement Potassium Level [facility] Start: 06-17-2026 Creatinine measurement Creatinine Level [employer] Start: 06-17-2026 Potassium measurement Potassium Level [employer] Start: 04-17-2026 Creatinine measurement [employer] Start: 04-17-2026 Potassium measurement [facility] [employer] Start: 04-06-2026 Echocardiography Echocardiogram [employer] Start: 04-06-2026 [employer] Start: 11-03-2025 Depression Monitoring Depression Monitoring [employer] Start: 09-13-2025 End: 09-13-2025 Patient encounter procedure 09/13/2025 10:40 AM EST Office Visit [facility] - [place] [address] [place] [phone] Eber Hess MD [address] [place] [address] [facility] - [place] Start: 06-17-2025 End: 06-17-2025 Patient encounter procedure 06/17/2025 10:20 AM EDT Office Visit [facility] [place] [address] [place] [address] [place] [phone] Eber Hess MD [address] [place] [address] [facility] - [place] Start: 05-18-2025 End: 05-18-2025 ambulatory [facility] Pulmonary and Sleep Medicine [facility] Start: 05-18-2025 End: 05-18-2025 Patient encounter procedure 05/18/2025 9:15 AM EDT Office Visit [facility] [address] [place] [address] Nelson Garcia MD [address] [facility] [address] [place] [address] [facility] Sleep [facility] Start: 05-10-2025 COVID-19 Vaccine ( season) COVID-19 Vaccine ( season) [facility] Start: 05-10-2025 Influenza vaccination Influenza Vaccine (#1) [facility] Start: 05-10-2025 [facility] Start: 04-22-2025 End: 04-22-2025 ambulatory [facility] - [place] Start: 04-22-2025 End: 04-22-2025 Patient encounter procedure 04/22/2025 10:00 AM EDT Office Visit [facility] - [place] [address] [place] [phone] Marian Casarez APRN - [place] [address] [address] [facility] [place] Start: 05-10-2024 COVID-19 Vaccine ( season) COVID-19 Vaccine ( season) [facility] Start: 05-10-2024 [facility] Start: 2011 RSV Immunization for Adults (1 - 1-dose 75+ series) RSV Immunization for Adults (1 - 1-dose 75+ series) [facility] Start: 2011 [facility] Start: 1986 Zoster Vaccines (1 of 2) Zoster Vaccines (1 of 2) [facility] Start: 1986 [facility] Start: 1955 DTaP/Tdap/Td Vaccines (1 - Tdap) DTaP/Tdap/Td Vaccines (1 - Tdap) [facility] Start: 1955 Pneumococcal Vaccine: 50+ Years (1 of 2 - PCV) Pneumococcal Vaccine: 50+ Years (1 of 2 - PCV) [facility] Start: 1955 [facility] Start: 1948 Depression Monitoring Depression Monitoring [facility] Start: 1948 [facility] Start: 1936 Medicare Annual Wellness (AWV) Medicare Annual Wellness (AWV) [facility] Start: 1935 [facility] Bedside spirometry [facility] Work Phone: End: 04-05-2025 Hemoglobin [Mass/volume] in Blood [facility] Work Phone: End: 04-05-2025 Hemoglobin.gastrointestina l.lower [Presence] in Stool by Immunoassay --1st specimen [facility] Work Phone: Immunizations Immunization Date Immunization Notes Care Provider Fa cility 12-05-2020 [facility] Work Phone: 11-07-2020 [facility]id (Modern[facility] Work Phone: 06-30-2020 influenza virus vaccine, unspecified formulation Katie Engle RN [facility] [employer] Payers Date Payer Category Payer Self-pay [id number] 2017 [employer] Manuel Vargas Managed Care - [facility] [id number] 2017 Medicare supplementa l policy (as second payer) [id number] 2017 Unknown [id number] 2001 Medicare [id number] 2001 Medicare [id number] Unknown [id number] Unknown [id number] Unknown [id number] Unknown [id number] Unknown [id number] Unknown [id number] Social History Date Type Detail Facility Tobacco smoking stat us NHIS Unknown if ever smoked [facility] Work Phone: Start: 1935 Sex Assigned At Male W [facility] Work Phone: Start: 04-08-2025 End: 05-03-2025 Tobacco smoking status NHIS Never smoked tobacco [facility] Start: 04-08-2025 End: 05-03-2025 History of Social function [facility] Start: 04-08-2025 End: 05-03-2025 [facility] [employer] [facility] Has the [employer], [employer], or water [employer] threatened to shut off services in your home in past 12Mo No [facility] How often to you hav e a drink containing alcohol? Never [facility] How many standard drinks containing alcohol do you have on a typical day? [facility] (I/We) worried landon er (my/our) food would run out before (I/we) got money to buy more. Never true [facility] Start: 1935 Sex assigned at [facility] Start: 04-05-2025 Sex Male (finding) [facility] Start: 05-03-2025 End: 06-15-2025 Tobacco use and exposure Smokeless tobacco non-user [facility] Start: 06-15-2025 [facility] History of tobacco use Current smoker [facility] History of tobacco use Cigarette Smoker [facility] Start: 06-17-2025 Alcoholic beverage intake Ex-drinker (finding) [facility] Goals Date Patient Goal Desired Activity /State Functional Status Date Assessment Result Facility 07-19-2025 Total score [AUDIT-C] 0 07/19/20 10:59 AM Luci Mendez RN [facility] 05-03-2025 Patient Health Quest ionnaire 2 item (PHQ-2) [Reported] [facility] Clinical Notes 04-05-2025 to [...] noted. VS stable. Resp even, non labored. [facility] 07-19-2025 Emergency department Note [facility] arrived to transport pt to home facility . Pt transferred to stretcher without difficulty. Pt A&O, calm, and cooperative, no signs of distress noted. VS stable. Resp even, non labored. Report given to [facility]. Marleni Post H&H not needed per Dr. Rose. Ok to dc 30 mins after unit is complete. Meal order placed This RN sat bedside for the first 15 mins of blood transfusion. Pt denied c/o any transfusion reaction symptoms. Pt's vitals rechecked before leaving the room. [facility] ED EMERGENCY DEPARTMENT ENCOUNTER Pt [...] 7.1 on 06/15/2025 patient is in a senior care. Patient is wheelchair-bound. HPI Historian is the [...] AND HEMATOCRIT, BLOOD PREPARE RBC PRODUCT CODE [id number] Unit Number [id number] Unit ABO A Unit RH NEG Crossmatch interpretation COMP Dispense Status Transfused Blood Expiration Date [id number] Product Blood Type 0600 Unit Volume 300 [...] determinants of health affecting care: Lives in senior care Shared decision making: Patient agrees to treatment plan ED Medications managed: Medications sodium chloride 0.9 % infusion (has no administration in time range) Prescription drugs prescribed: PROCEDURES: Unless otherwise noted below, none Procedures IMPRESSION 1. Symptomatic anemia DISPOSITION/PLAN DISPOSITION Discharge 07/19/2025 01:51:41 PM PATIENT REFERRED TO: Ravi Kirk DO [address] [place] [address] [address] [place] [address] In 1 week DISCHARGE MEDICATIONS: New Prescriptions No medications on file @[facility]([id number]:LAST:1)@ (Comment: Please notethis report has been produced [...] MD 07/19/25 1352 documented in this encounter [facility] 07-19-2025 Emergency department [facility] 07-19-2025 Emergency department Note Post H&H not needed per Dr. Rose. Ok to dc 30 mins after unit is complete. [facility] 07-19-2025 Emergency department Note Meal order placed [facility] 07-19-2025 Emergency department Note This RN sat bedside for the first 15 mins of blood transfusion. Pt denied c/o any transfusion reaction symptoms. Pt's vitals rechecked before leaving the room. [facility] 07-19-2025 Hospital Discharg e instructions Josefina Rose MD - 07/19/2025 1:52 PM EST Continue all current medications. Would recommend that you get a repeat CBC within 5 to 7 days. This can be done by your primary care physician. The following attachments cannot be sent through Care Everywhere.Normocytic Normochromic Anemia Discharge Instructions (Uruguayan)documented in this encounter [facility] 07-19-2025 Physician Emergency department Note [facility] ED EMERGENCY DEPARTMENT ENCOUNTER Pt [...] 7.1 on 06/15/2025 patient is in a senior care. Patient is wheelchair-bound. HPI Historian is the [...] AND HEMATOCRIT, BLOOD PREPARE RBC PRODUCT CODE [id number] Unit Number [id number] Unit ABO A Unit RH NEG Crossmatch interpretation COMP Dispense Status Transfused Blood Expiration Date [id number] Product Blood Type 0600 Unit Volume 300 [...] determinants of health affecting care: Lives in senior care Shared decision making: Patient agrees to treatment plan ED Medications managed: Medications sodium chloride 0.9 % infusion (has no administration in time range) Prescription drugs prescribed: PROCEDURES: Unless otherwise noted below, none Procedures IMPRESSION 1. Symptomatic anemia DISPOSITION/PLAN DISPOSITION Discharge 07/19/2025 01:51:41 PM PATIENT REFERRED TO: Ravi Kirk DO [address] [place] [address] In 1 week DISCHARGE MEDICATIONS: New Prescriptions No medications on file @[facility]([id number]:LAST:1)@ (Comment: Please notethis report has been produced [...] Year: No Josefina Rose MD 07/19/25 1352 [facility] 07-07-2025 Telephone encounter Note Darby called back to verify the diuretic instructions; she had the Lasix written down, so I verified that it was actually torsemide. She verbalized understanding and was thankful for the call. [facility] 07-07-2025 Miscellaneous Notes Darby called back [...] and spoke to nurse Khushboo from [facility]-she took verbal order for torsemide and notes they are continuing to follow his anemia with hemograms; is occult stool was negative. She was thankful for the call back. Images from the original note were not included. Cr 1.9, K+ 3.7, hemoglobin 7.1 on 07/05/25. BP's mostly 100-110's/50/60's; one SBP outlier of 94, one outlier of 121. HR's 60-70's. Note from nursing: [facility] faxed 07/05/25 BMP, and CBC, and vitals. Records to be scanned to chart. Sharita from [facility] called o report weight gain. 07/03: #189, 07/04: #191, 07/06: #191.4, and today #191.6. He had labs recently and HG is 7.1. She is faxing his recent vitals and labs. We scheduled follow up with 09/13/25. Otherwise he is feeling fine. documented in this encounter [facility] 07-07-2025 Telephone encounter Note Per Dr Hess Ok to take etc 20 mg torsemide if weight gain, leg swelling or sob. Anemia - recommend followup with PCP and GI I called and spoke to nurse Khushboo from [facility]-she took verbal order for torsemide and notes they are continuing to follow his anemia with hemograms; is occult stool was negative. She was thankful for the call back. [facility] 07-06-2025 Telephone encounter Note Images from the original note were not included. Cr 1.9, K+ 3.7, hemoglobin 7.1 on 07/05/25. BP's mostly 100-110's/50/60's; one SBP outlier of 94, one outlier of 121. HR's 60-70's. Note from nursing: [facility] 07-06-2025 Telephone encounter Note [facility] faxed 07/05/25 BMP, and CBC, and vitals. Records to be scanned to chart. [facility] 07-06-2025 Telephone encounter Note Sharita from [facility] called o report weight gain. 07/03: #189, 07/04: #191, 07/06: #191.4, and today #191.6. He had labs recently and HG is 7.1. She is faxing his recent vitals and labs. We scheduled follow up with 09/13/25. Otherwise he is feeling fine. [facility] 06-24-2025 History of Presen t illness Narrative Attempted to meet with pt. He no longer resides here. Facility uncertain where he has moved to. Message left on primary contacts number Bereket to return call to the palliative group at [phone] documented in this encounter [facility] 06-24-2025 Telephone encounter Note Per Dr Hess: Would stop aldactone all together due to Cr 1.8 and low normal BP. Also stop hydralazine and see how bp is I called and spoke to the nurseKylah at [facility] relaying note from Dr Hess. She [...] likely give him an additional torsemide today. [facility] 06-24-[address] Hess: Would stop aldactone all together due to Cr 1.8 and low normal BP. Also stop hydralazine and see how bp is I called and spoke to the nurseKylah at [facility] relaying note from Dr Hess. She [...] was 2.05 on 06/17/25. FYI: Went to [facility] ER on 06/21/25 for blood transfusion as HGB at facility was 6.9 when they checked it 06/21/25. Labs from [facility] Today: 06/24/25 BMP, blood pressure, pulse summary, and medication notes faxed from [facility]. Records scanned to Media. documented in this encounter [facility] 06-24-2025 Telephone encounter Note Images from [...] was 2.05 on 06/17/25. FYI: Went to [facility] ER on 06/21/25 for blood transfusion as HGB at facility was 6.9 when they checked it 06/21/25. Labs from [facility] Today: [facility] 06-24-2025 Telephone encounter Note 06/24/25 BMP, blood pressure, pulse summary, and medication notes faxed from [facility]. Records scanned to Media. [facility] 06-21-2025 Emergency department Note This RN at bedside for first 15 minutes of blood transfusion. Pt tolerating transfusion. VS updated in system. [facility] 06-21-2025 Emergency department Note This RN at bedside for first 15 minutes of blood transfusion. Pt tolerating transfusion. VS updated in system. Emergency Department Encounter [facility] ED Patient: Mary Charles : [...] the emergency department lab work today from [facility] facility showed hemoglobin of 6.8. Patient is [...] unit of blood and discharged back to [facility] facility. Diagnostics interpreted by me: I personally [...] the dictating provider for clarification.) DO [employer]EN [employer] Sagar Gilliam DO 06/21/252 Patient arrives via EMS from [facility] following bloodwork that showed low hemoglobin. No overt signs of bleeding on arrival. Patient A&O4. Patient does endorse previous blood transfusions. documented in this encounter [facility] 06-21-2025 Emergency department Triage note Patient arrives via EMS from [facility] following bloodwork that showed low hemoglobin. No overt signs of bleeding on arrival. Patient A&O4. Patient does endorse previous blood transfusions. [facility] 06-21-2025 Physician Emergency department Note Emergency Department Encounter [facility] ED Patient: Mayr Charles : 1935 Date of Evaluation: 06/21/2025 [...] the emergency department lab work today from [facility] showed hemoglobin of 6.8. Patient [...] unit of blood and discharged back to [facility] facility. Diagnostics interpreted by me: I personally [...] [employer] Sagar Gilliam DO 06/21/252211 [facility] [employer] Work Phone: 06-17-2025 History of Presen t illness Narrative [facility] Cardiology [facility] CARDIOLOGY - [address] [facility] [phone] Dept: [phone] Dept Visit type: Established : 1935 Chief Complaint: Chief Complaint Patient presents with Follow-up 6 Week History of Present Illness: Mary Charles is a 89 y.o. male with HFrEF, Coronary artery disease who is here for followup. Prior events : He presented to [facility] 03/2025 with progressive shortness of [...] tablet, Rfl: 1 documented in this encounter [facility] 05-06-2025 History of Presen t illness Narrative Images from the original note were not included. [facility] Palliative Care Site of Care: [facility] Chief Complaint: Mary Charles is a 89 [...] hospice conversation today Debility Pt now at [facility] Working with PT/OT Palliative encounter Will [...] little over a year ago in the [facility] setting. He reports he had not [...] other systems were reviewed and are negative. 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 [facility] CARDIOLOGY - [address] [place] [id number] Dept: [phone] Dept Visit type: Established : 1935 Reason [...] of EF 2. Coronary artery disease involving ione coronary artery of ione heart without angina pectoris Assessment & Plan: [...] weeks (around 06/14/2025). Wants to establish in [place]. Subjective No prior history as he has not been to a doctor for many years He presented to [facility] 03/2025 with progressive shortness of [...] history on file. documented in this encounter [facility] 05-03-2025 Evaluation + Plan note Associated Problem(s): Abnormal CAT scan CT abdomen with mural thickening involving the cecum and terminal ileum concern for neoplasm versus inflammation. Seen by GI with plan for EGD and colonoscopy once stable. -GI follow-up [facility] 05-03-2025 Miscellaneous Notes Associated Problem(s): Abnormal [...] today Associated Problem(s): Coronary artery disease involving ione coronary artery of ione heart without angina pectoris Suspected CAD causing [...] re-evaluation of EF documented in this encounter [facility] 05-03-2025 Evaluation + Plan note Associated Problem(s): PAC (premature atrial contraction) Noted to have irregular heart rhythm during hospitalization and multiple EKGs show sinus rhythm with frequent PACs. -Continue Toprol 25 mg p.o. daily [facility] 05-03-2025 Evaluation + Plan note Associated [...] due to anemia - continue to monitor [facility] 05-03-2025 Evaluation + Plan note Associated Problem(s): Acute kidney injury superimposed on chronic kidney disease (HCC) (HCC) Creatinine 1.46 on admission. Peak creatinine 1.78. Most recent creatinine 1.8 per labs 04/26/2025 - Continue to monitor - may have to accept a higher creatinine to keep him out of HF [facility] 05-03-2025 Evaluation + Plan note Associated Problem(s): Pleural effusion Bedside thoracentesis 04/09/2025 with 1 L removed from the left and 600 mL removed from the right. Repeat left thoracentesis 04/14/2025 with 600 mL removed. 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 NO angina. - no ASA 2/2 anemia - continue Toprol 25 mg po daily - continue atorvastatin 20 mg po daily - not a candidate or invasive workup due to anemia, advanced age and frailty [facility] 05-03-2025 Evaluation + Plan note Associated [...] of EF Electronically signed by Alejandro Queen, BUSINESS SYSTEMS ARCHITECT - SALES CENTER MANAGER at 05/03/2025 11:05 AM EDT [facility] 04-19-2025 History of Presen t illness Narrative Pt was followed by the Palliative Care Team during hospitalization at [facility]. Provider is recommending continued Palliative follow up in the community. Referral made referral to [facility] Palliative Care SNF team. documented in this encounter [facility] 04-17-2025 Nurse Note Report given to Flor MYERS at [facility]. All belongings sent with patient, including eyewear. HL removed, site WNL. RN contacted TRANSPLANT NURSE Marleny concerning attempt to wean patient to [...] very aggressively. 2 RN , 2 nursing unit coordinator were at bedside trying to calm him [...] within normal limits. documented in this encounter [facility] 04-17-2025 Miscellaneous Notes Patient Choice Patient Name: MARY CHARLES Date of : 1935 Share Number: 0 Method of Sharing: electronic Date of Sharin2025-04-08 13:13:49.000 Responding Recipient: [email or web address] [employer] Ranked Providers Sent Referral Rank: 2 Name: Monika Montoya [facility] Phone: [phone] Address: [address] [place] [address] Rank: 3 Name: [facility], [employer]. Phone: [phone] Address: [address] [place] [address] Rank: 1 Name: Jan FUENTES Member Phone: [phone] Address: [address] [place] [address] All Providers Sent Referral Name: Monika LOZOYA Phone: [phone] Address: [place] [address] Name: [employer] De[employer]re Phone: [phone] Address: [address] [place] [address] Name: Jan Dos Santos CPAN Member Phone: [phone] Address: [address] [address] Care Management Progress Note Short Medical why still here: Pending placement. Planned Discharge Disposition: Correction Facility ([facility]) Barriers/Today we still Wait: Clinical [...] Requested cot transport for 1230 via [facility]. I AM AT [facility] accepted for 1230. Notified bedside RN of transport time and number to call report. Notified facility of transport time and [facility] Spoke with daughter Anahy Charles at [phone] regarding transportation plan. Confirmed pickup time is 1230. Discussed patient may have a co-pay for ambulance depending on their individual insurance coverage. Advised daughter Anahy to call number on back of insurance card with questions or concerns. Tasked weekend TTC to follow for possible dc over the weekend. rollout manager to follow and assist as needed. [...] at that facility if he chooses. -Tasked CIGARETTE BOOK MAKER to complete and upload into [employer] 7000. Barriers/Today we still Wait: Clinical stability, [...] will still need placement at a facility. -rollout manager to follow and assist as needed. [...] family later on Saturday. Planned Discharge Disposition: Correction Facility vs hospice Barriers/Today we still Wait: Receiving IV medication, clinical stability, Post-discharge arrangement completion (SNF vs hospice) rollout manager to follow and assist as needed. Length of Stay (Days): 9 GMLOS: 3.9 Family Communication Number Called: [phone] Name of Designated Family Cigar Head Puncher: Anahy Charles Relationship to patient: Daughter Outcome: I spoke with the individual listed above Family Cigar Head Puncher Updated on the Following: --provided medical update. [...] on Saturday. Signed, Bela Agustin APRN, [place], [facility] Palliative Care/Hospice PGR [phone] Care Management Progress Note Short Medical why still here: did send bipap settings to [facility] and requested for them to obtain bipap unit for patient to utilize at their facility. Currently requiring oxygen at 1 liter. Anticipate probable dc tomorrow. Will need 7000 and transport arranged. Planned Discharge Disposition: Correction Facility Barriers/Today we still Wait: Administering IV medications, Clinical stability, Facility pre-cert Length of Stay (Days): 8 GMLOS: 3.9 . Referral placed to SNF- [facility] via [facility] per TCC request. Await review and response regarding ability to accept. TCC notified. Care Management Progress Note Short Medical why still here: reviewed chart. Dgt has selected SNF choices virtually - 1. [place] [facility] 2. [facility] 3. [facility]. Tasked CIGARETTE BOOK MAKER to create these referrals - will follow. Planned Discharge Disposition: Correction Facility Barriers/Today we still Wait: Administering IV medications, Clinical stability, Facility pre-cert Length of Stay (Days): 7 GMLOS: 3.9 Called and spoke with deya Higginbotham of patient, and provided DC planning updates. [facility] - Jan wills willing to accept. Updates sent to facility. ICU Transfer Checklist Transfer Med Reconciliation (resume home meds if able, convert to PO if able) Complete Antibiotics (name, indication, duration, convert to PO if able) None Steroid (indication, duration, convert to PO if able) None Anticipated [place] Medications (ICU initiated) or Dose Changes and Indication No Permanently Discontinued Home Medications and Reason for medication contraindication No García Catheter (please remove if able. Note: place DC order) No Central Line (please remove if able. Note: place DC order) No Transfer Discussed with: Dr. Rgean with [facility] If additional questions for ICU team within 24 hours of ICU transfer, page [phone] for clarifications. Will assume care as patient is being transferred out of ICU. D/w Dr Lewis via secure chat Images from the original note were not included. [facility] Palliative Care Transitions of Care [...] care of himself. -Consider medication for mood? -Active Directory Systems Administrator support requested. -Monitor. Hx CKD III -CrCl [...] referrals have been sent to [facility], [facility] and [facility]. Follow up with palliative team [...] care and cardiology following. Planned Discharge Disposition: Correction Facility Barriers/Today we still Wait: Clinical stability, Gore Maker recommendations (comment), Diagnostic workup, Administering IV medications, [...] need if SNF is recommended by PT. rollout manager to follow and assist as needed. Length of Stay (Days): 1 GMLOS: No GMLOS Documented documented in this encounter [facility] 04-17-2025 Note [facility] 04-17-2025 Hospital [...] Your Medications These medications were sent to [facility] [address] [facility] [address] Hours: Saturday to Saturday 10 am to 6 pm atorvastatin 20 MG tablet hydrALAZINE 10 MG tablet metoprolol succinate XL 25 MG 24 hr tablet senna-docusate sodium 8.6-50 MG tablet spironolactone 25 MG tablet Torsemide 40 MG tablet DIET: Adult diet Regular; No Added Salt (3-4 gm) ACTIVITY: No restriction. COMPLEXITY OF FOLLOW UP: [x] Moderate Complexity: follow up within 7-14 calendar days (36040) [] Severe Complexity: follow up within 7 calendar days (08480) FOLLOW UP TESTING, PENDING RESULTS OR REFERRALS AT TRANSITIONAL CARE VISIT: [x] Yes [] No PENDING STUDIES: DISPOSITION: Skilled Facility FACILITY/HOME CARE AGENCY NAME: Follow up with Nelson Garcia MD [address] [facility] [address] Go on 05/18/2025 Pulmonary hospital follow-up at 9:15 AM Marian Casarez APRN - SALES CENTER MANAGER [address] [place] [id number] Follow up on 04/22/2025 Cardiology follow-up at 10:00 AM. [facility] Gastroenterology - [place] [address] [facility] [phone] Follow up in 1 month(s) on INSTRUCTIONS [...] 04/17/2025, 10:12 AM documented in this encounter [facility] 04-17-2025 History of Presen t illness Narrative [facility] [place] [facility] Cardiology /Electrophysiology Progress Note HPI / Interval [...] at 10 AM at the [facility] office with myself, Marian Casarez CNP. I [...] Daily torsemide, 40 mg, Oral, Daily [2] [facility] Respiratory Care Department Progress Note Comment [...] care of himself. -Consider medication for mood? -Active Directory Systems Administrator support requested. -Monitor. Hx CKD III -CrCl [...] detailed in the note above. Bela Agustin, BUSINESS SYSTEMS ARCHITECT - SALES CENTER MANAGER Palliative Care Assessments: Goals of care: Continue [...] other systems were reviewed and are negative. [place] Symptom Assessment Score [place] Score Pain Score (if non-verbal, add .FLACC [...] On: Kcal/kg Weight Used for Energy Requirements: [place] Weight for Energy Calculation (kg): 70 kg Total Energy Requirements (kcals/day): 2544-2164 (25-30) Weight Used for Protein Requirements: [place] Weight in Kg Used for Protein Requirements: [...] Body Weight: (none on file to review) [place] Body Weight (lbs) (Calculated): 154 lbs [place] Body Weight (Kg) (Calculated): 70 kg % [place] Body Weight (Calculated): 129.9 % BMI (kg/m2) [...] Continue current diet Kristin Duffy RD Contact: *[phone] or via Secure Chat Images from the original note were not included. OCCUPATIONAL THERAPY [facility] Treatment Note Name/MRN: Mary Charles ([id number]) Date of : 1935 Age: 89 y.o. Room/Bed: [facility]268/[facility] B Visit #: 4 out of 7 Discharge Recommendation: Correction Facility Equipment Needed: No Assessment Pt tolerated [...] ANAHY CHARLES Mobile Relation: Daughter Preferred language: U[place]ayan Drafting Instructor needed? No Albaro Hernández MD Division of [...] from the original note were not included. [facility], Pulmonary Medicine [address] [place] [address] Patient - Mary Charles, Age - 89 y.o. - 1935 Room Number - B2-268/B2-268 B Consulting - Albaro Hernández MD Primary Care Physician - No primary care provider on file. [id number] Date of Admission - 04/05/2025 3:55 PM [...] heart failure, unspecified heart failure type (HCC) [facility] [place] [facility] Cardiology /Electrophysiology Progress Note HPI / Interval History: Mary Charlse is a 89 y.o. year old male [...] Daily torsemide, 40 mg, Oral, Daily [2] [facility] Respiratory Care Department Progress Note Comment [...] Respiratory in the care of this patient, [facility] [place] [facility] Cardiology /Electrophysiology Progress Note HPI / Interval [...] from the original note were not included. [facility], Pulmonary Medicine [address] [place] [address] Patient - Mary Charles, Age - 89 y.o. - 1935 Room Number - B2-268/B2-268 B Consulting - Albaro Hernández MD Primary Care Physician - No primary care provider on file. [id number] Date of Admission - 04/05/2025 3:55 PM [...] ANAHY CHARLES Mobile Relation: Daughter Preferred language: [place]ayan Drafting Instructor needed? No Albaro Hernández MD Division of [...] ON 04/16/2025] polyethylene glycol (PEG) 3350 [4] [facility] Respiratory Care Department Progress Note Comment [...] Respiratory in the care of this patient, [facility] [place] [facility] Cardiology /Electrophysiology Progress Note HPI / Interval [...] original note were not included. OCCUPATIONAL THERAPY [facility]'s Name/MRN: Mary Charles ([id number]) Date: 04/14/2025 Attempted to see pt for OT tx. Pt reported being very fatigued after getting cleaned up and working with PT this AM. Unable to encourage participation in OT tx at this time. Marleni Victor OT Images from the original note were not included. PHYSICAL THERAPY [facility] Treatment Note Name/MRN: Mary Charles ([id number]) Date of : 1935 Age: 89 y.o. Room/Bed: [facility]268/[facility] B Visit #: 4 out of 5 Discharge Recommendation: Correction Facility Equipment Needed: No Assessment Patient supine [...] ANAHY CHARLES Mobile Relation: Daughter Preferred language: [place] Drafting Instructor needed? No Albaro Hernández MD Division of [...] from the original note were not included. [facility], Pulmonary Medicine [address] [place] [address] Patient - Mary Charles, Age - 89 y.o. - 1935 Room Number - B2-268/B2-268 B Consulting - Albaro Hernández MD Primary Care Physician - No primary care provider on file. [facility] [id number] Date of Admission - 04/05/2025 3:55 PM [...] at home. I spoke with Breana from [employer]. Likely will need to have bedside spirometry [...] On: Kcal/kg Weight Used for Energy Requirements: [place] Weight for Energy Calculation (kg): 70 kg Total Energy Requirements (kcals/day): 5960-3363 (25-30) Weight Used for Protein Requirements: [place] Weight in Kg Used for Protein Requirements: [...] Body Weight: (none on file to review) [place] Body Weight (lbs) (Calculated): 154 lbs [place] Body Weight (Kg) (Calculated): 70 kg % [place] Body Weight (Calculated): 136.1 % BMI (kg/m2) [...] Oral Nutrition Supplement Kristin Duffy RD Contact: *[phone] or via Secure Chat Images from the original note were not included. OCCUPATIONAL THERAPY [facility] Treatment Note Name/MRN: Mary Charles ([id number]) Date of : 1935 Age: 89 y.o. Room/Bed: [facility]268/[facility] B Visit #: 3 out of 7 Discharge Recommendation: Correction Facility Equipment Needed: No Prior Level of [...] Gongora OT at 04/14/2025 9:03 AM EDT [facility] [place] [facility] Cardiology /Electrophysiology Progress Note HPI / Interval [...] 100 % Final Marian Casarez, LOURDES - SALES CENTER MANAGER Date Of Service 04/13/2025 [1] atorvastatin, 20 [...] ANAHY CHARLES Mobile Relation: Daughter Preferred language: U[place]ayan Drafting Instructor needed? No Albaro Hernández MD Division of Hospitalist Medicine Acute [facility] [1] History reviewed. No pertinent past [...] from the original note were not included. [facility], Pulmonary Medicine [address] [place], [place] [id number] Patient - Mary Charles, Age - 89 [...] original note were not included. OCCUPATIONAL THERAPY [facility] Treatment Note Name/MRN: Mary Charles ([id number]) Date of : 1935 Age: 89 y.o. Room/Bed: [facility] B Visit #: 2 out of 7 visits Discharge Recommendation: Correction Facility Equipment Needed: No Prior Level of Function Prior Level of ADL Function: Required Assist (for showering and pt wipes himself down with wash cloth IND) Prior Level of Mobility: Independent; Device: Rollator Prior Level of Transfers: Independent Assessment Pt agreeable to therapy at first attempt ([id number]) but states that he first needs to [...] care of himself. -Consider medication for mood? -Active Directory Systems Administrator support requested. -Monitor. Hx CKD III -CrCl [...] hospital setting and will send referral to heading up machine operatorperformance improvement coordinator for palliative SNF referral. -Questions answered, [...] other systems were reviewed and are negative. [place] Symptom Assessment Score [place] Score Pain Score (if non-verbal, add .FLACC [...] time LOURDES Ordaz CNP Hospitalist Progress Note 04/12/20256997500-6137: Please secure chat me for patient care issues. [phone]: Please secure chat [facility] night Hospitalist for any issues. Subjective: Admit [...] diet Regular; No Added Salt (3-4 gm) @[id number]@ 24HR INTAKE/OUTPUT: Intake/Output Summary (Last 24 hours) [...] care input PT and OT assessments recommended [facility] facility -am labs, replace lytes prn -increase activity -DVT prophylaxis: [] Lovenox [] Heparin [x] SCDs [x] Encourage ambulation [] Already on Anticoagulation - GI prophylaxis : Anticipated Discharge - Date -April 14 or - Location -[facility] facility - Pending the following -clinical improvement, specialist clearance Total time spent (which include face to face and non face to face encounters) : 53 minutes Toxic drug monitoring/narrow therapeutic index drug monitoring : # Drug name : # Route administered : # Method of monitoring : Extended Emergency Contact Information Primary Emergency Contact: MELVINANAHY Mobile Relation: Daughter Preferred language: Uruguayan Drafting Instructor needed? No Westley Martinez MD Division of Hospitalist Medicine Acute care [employer] PAGER: [employer] chat [1] History reviewed. No pertinent past [...] original note were not included. PHYSICAL THERAPY [facility] Treatment Note Name/MRN: Mary Charles ([id number]) Date of : 1935 Age: 89 y.o. Room/Bed: [facility]268/[facility] B Visit #: 3 out of 5 visits Discharge Recommendation: Correction Facility Equipment Needed: No Assessment Pt making [...] Cabral, PT at 04/12/2025 10:47 AM EDT [facility] Cardiology /Electrophysiology Progress Note HPI / Interval History: Mary Charles has no prior cardiac history (has not seen a physician for many years) who presented to [facility] with worsening SOB, hypoxia and [...] Benson CNP Date Of Service 04/12/2025 [1] [facility] Respiratory Care Department Progress Note Comment [...] original note were not included. OCCUPATIONAL THERAPY [facility] Treatment Note Name/MRN: Mary Charles ([id number]) Date of : 1935 Age: 89 y.o. Room/Bed: B2-268/B2-268 B Visit #: 1 out of 7 Discharge Recommendation: Correction Facility Equipment Needed: No Prior Level of [...] 1:38 PM EDT Hospitalist Progress Note 04/11/[phone]: Please secure chat me for patient care issues. [phone]: Please secure chat [facility] Hospitalist for any issues. Subjective: Admit [...] diet Regular; No Added Salt (3-4 gm) @[id number]@ 24HR INTAKE/OUTPUT: Intake/Output Summary (Last 24 hours) [...] - Location -Home with home health versus [facility] facility - Pending the following -PT and [...] ANAHY CHARLES Mobile Relation: Daughter Preferred language: [place]ayan Drafting Instructor needed? No Westley Martinez MD Division of Hospitalist Medicine [facility] PAGER: Epic caty [1] History reviewed. No [...] ON 04/12/2025] torsemide, 40 mg, Oral, Daily [facility] [place] [facility] Cardiology /Electrophysiology Progress Note HPI / Interval History: Mary Charles has no prior cardiac history (has not seen a physician for many years) who presented to [facility] with worsening SOB, hypoxia and [...] Benson CNP Date Of Service 04/11/2025 [1] [facility] Respiratory Care Department Progress Note Comment [...] original note were not included. PHYSICAL THERAPY [facility] Treatment Note Name/MRN: Mary Charles ([id number]) Date of : 1935 Age: 89 y.o. Room/Bed: 222-04/222-04 A Visit #: 2 out of 5 Discharge Recommendation: Correction Facility Equipment Needed: No Assessment Pt making [...] original note were not included. OCCUPATIONAL THERAPY [facility] Initial Evaluation Name/MRN: Mary Charles ([id number]) Evaluation Date: 04/10/2025 Date of : 1935 Admission Date: 04/05/2025 3:55 PM Age: 89 y.o. Room/Bed: 222-04/222-04 A Discharge Recommendation: Correction Facility Equipment Needed: No Assessment IMPRESSION: Pt [...] Needs Assist Receives Help From: Family Active Glass Pulverizer Equipment Operator: No Prior Level of Function Prior [...] supervision is transferred to a [facility] Therapy Services Occupational Therapist. Goals and/or [...] [2] History reviewed. No pertinent surgical history. [facility] [place] [facility] Cardiology /Electrophysiology Progress Note HPI / Interval History: Mary Charles has no prior cardiac history (has not seen a physician for many years) who presented to [facility] with worsening SOB, hypoxia and [...] remote tobacco abuse who was admitted to [facility] 04/05/25 with shortness of breath [...] Normal [] Scar/Lesion/Mass Inspection of teeth/lips/gums: Dentition: [x]Platinum Teeth []Dentures Lips/Gums [x]Intact []Lesion Present Oropharynx exam: Mucosa [x]Sunfield []Moist []Dry Neck: External Appearance: Overall Appearance:[x]Normal [...] ABGs: Recent Labs 04/08/25165304/08/252052 PHART 7.296* 7.332* ORE6FZA 80.1* 75.1* PO2ART 92.0 104.0 [id number] 38.2* 38.9* [id number] 96.1* 97.0 Lactic Acid: No lab exists [...] can use the urinal, no indication for WINDOW SHADE ESTIMATOR at this time (would be a poor [...] Code Status: Full Code Disposition: Transfer to [facility] with telemetry Critical care time spent reviewing labs/films, examining patient, collaborating with other physicians but excluding procedures for life threatening organ failure is 35 minutes. Precious Lewis MD Pulmonary & Critical Care Medicine [facility] Pager #[phone] [1] atorvastatin, 20 mg, Oral, Nightly carvedilol, 3.125 mg, Oral, BID WC furosemide, 40 mg, IntraVENous, BID hydrALAZINE, 25 mg, Oral, TID mupirocin, 1 Application, Nasal, BID pantoprazole, 40 mg, Oral, qAM AC polyethylene glycol (PEG) 3350, 17 g, Oral, Daily senna-docusate sodium, 2 tablet, Oral, BID [Held by provider] torsemide, 20 mg, Oral, Daily [2] [facility] [place] [facility] Cardiology /Electrophysiology Progress Note HPI / Interval History: Mary Charles has no prior cardiac history (has not seen a physician for many years) who presented to [facility] with worsening SOB, hypoxia and [...] Does appear tired. Family at bedside (brother, [id number], daughter). No significant complaints today. Assessment/Plan HF [...] original note were not included. PHYSICAL THERAPY [facility] Treatment Note Name/MRN: Mary Charles ([id number]) Date of : 1935 Age: 89 y.o. Room/Bed: 222-04/222-04 A Visit #: 1 out of 5 Discharge Recommendation: Correction Facility Equipment Needed: No Assessment Pt demos [...] x1) Lucrecia Cabral PT Spiritual Care Note [facility] Palliative Care Patient Name:Mary Charles Chief [...] of grief. He spoke about moving from [place] to [place] as a young man. We did some life review. No follow up. Is there spiritual distress? YES Comment: Grief Interventions: spiritual support provided, emotional support provided, empathetic listening, and validated feelings. Care Plan: No care plan. Follow Up: No follow up. Debriefed: with hydropress operator team. Carmelita Chairez 04/09/25 Images from [...] care of himself. -Consider medication for mood? -Active Directory Systems Administrator support requested. -Monitor. Hx CKD III -CrCl [...] other systems were reviewed and are negative. [place] Symptom Assessment Score [place] Score Pain Score (if non-verbal, add .FLACC [...] original note were not included. OCCUPATIONAL THERAPY [facility] ED's Name/MRN: Mary Charles ([id number]) Date: 04/09/2025 OT order received, chart review [...] remote tobacco abuse who was admitted to [facility] 04/05/25 with shortness of breath [...] Normal [] Scar/Lesion/Mass Inspection of teeth/lips/gums: Dentition: [x]Platinum Teeth []Dentures Lips/Gums [x]Intact []Lesion Present Oropharynx exam: Mucosa [x][place] []Moist []Dry Neck: External Appearance: Overall Appearance:[x]Normal [...] ABGs: Recent Labs 04/08/25165304/08/252052 PHART 7.296* 7.332* YUV3TFN 80.1* 75.1* PO2ART 92.0 104.0 MUW3PUV 38.2* 38.9* [id number] 96.1* 97.0 Lactic Acid: No lab exists [...] urology evaluation, strict I/O's, no indication for WINDOW SHADE ESTIMATOR at this time (would be a poor [...] Lewis MD Pulmonary & Critical Care Medicine [facility] Pager #[phone] [1] atorvastatin, 20 mg, Oral, Nightly carvedilol, [...] critical care time excluding procedures D/w Yamilka, WINDOW SHADE ESTIMATOR, Rosangela, RN and family at bedside. Images from the original note were not included. OCCUPATIONAL THERAPY [facility]'s Name/MRN: Mary Charles ([id number]) Date: 04/08/2025 Therapy eval and treat orders [...] if needed. [facility] Progress Note 04/08/2025 [phone]: Please secure chat [place] for patient care issues. [phone]: Please secure chat [facility] Hospitalist for any issues. Subjective: Admit [...] dose of lorazepam.... Adult diet Clear liquid @[id number]@ 24HR INTAKE/OUTPUT: Intake/Output Summary (Last 24 hours) [...] Date -April 11 or - Location -possible [facility] facility - Pending the following -clinical improvement, [...] ANAHY CHARLES Mobile Relation: Daughter Preferred language: Uruguayan Drafting Instructor needed? No Westley Martinez MD Division of Hospitalist Medicine Acute care solutions PAGER: Udacity chat [1] History reviewed. No pertinent past medical history. [2] [3] atorvastatin, 20 mg, Oral, Nightly carvedilol, 3.125 mg, Oral, BID WC [Held by provider] furosemide, 40 mg, IntraVENous, BID hydrALAZINE, 25 mg, Oral, TID iron sucrose, 200 mg, IntraVENous, q24h pantoprazole, 40 mg, Oral, qAM AC [facility] [place] [facility] Cardiology /Electrophysiology Progress Note HPI / Interval History: Mary Charles has no prior cardiac history (has not seen a physician for many years) who presented to [facility] with worsening SOB, hypoxia and [...] 3. Dysphagia - resolved Spiritual Care Note [facility] Palliative Care Patient Name:Mary Charles Chief Complaint: Chief Complaint Patient presents with Leg Swelling Shortness of Breath Pt arrived to triage for shortness of breath and swelling legs. Pt endorses increased work of breath, weakness, confusion and no appetite. Reason for visit: Active Directory Systems Administrator Consult Services Provided To:patient and family Background and visit note: Patient was hydropress operator consult. Introduced myself and pastoral care [...] and when patient is able. Debriefed: with hydropress operator team. Carmelita Chairez 04/07/25 Images from the original note were not included. PHYSICAL THERAPY [facility] Initial Evaluation Name/MRN: Mary Charles ([id number]) Evaluation Date: 04/07/2025 Date of : 1935 Admission Date: 04/05/2025 3:55 PM Age: 89 y.o. Room[facility]Bed: [facility] A Discharge Recommendation: Correction Facility Equipment Needed: No Assessment IMPRESSION: Pt [...] Needs Assist Receives Help From: Family Active Glass Pulverizer Equipment Operator: No Prior Level of Function Prior [...] supervision is transferred to a [facility] Therapy Services Physical Therapist. Goals and/or treatment plan was established in collaboration with patient/family/other representatives. [1] History reviewed. No pertinent past medical history. [2] History reviewed. No pertinent surgical history. Cosigned by Lucrecia Cabral PT at 04/07/2025 4:00 PM EDT Hospitalist Progress Note 04/07/[id number]: Please secure chat me for patient care issues. [phone]: Please secure chat [facility] night Hospitalist for any issues. Subjective: Admit Date: 04/05/2025 PCP: No primary care provider on file. Room#: -254/[facility]254 A Brief History: Patient is a 89-year-old [...] diet Regular; No Added Salt (3-4 gm) @[id number]@ 24HR INTAKE/OUTPUT: Intake/Output Summary (Last 24 hours) [...] Date -April 11 or - Location -possible [facility] facility - Pending the following -clinical improvement, [...] ANAHY CHARLES Mobile Relation: Daughter Preferred language: Uruguayan Drafting Instructor needed? No Westley Martinez MD Division of Hospitalist Medicine Acute care solutions PAGER: Udacity chat [1] History reviewed. No pertinent past medical history. [2] [3] atorvastatin, 20 mg, Oral, Nightly carvedilol, 3.125 mg, Oral, BID WC furosemide, 40 mg, IntraVENous, BID hydrALAZINE, 25 mg, Oral, TID iron sucrose, 200 mg, IntraVENous, q24h pantoprazole, 40 mg, Oral, qAM AC [facility] [place] [facility] Cardiology /Electrophysiology Progress Note HPI / Interval History: Mary Charles has no prior cardiac history (has not seen a physician for many years) who presented to [facility] with worsening SOB, hypoxia and [...] assess Fluid Accumulation: Moderate to Severe Extremities Fitness Leader Strength: Not Performed Nutrition Assessment: 89 y.o. [...] severe anemia and frailty. Conservative, medical management. rehab nursing tech in room. Pt sleeping /snoring -name called numerous times pt did not wake -left undisturbed at this time. Estimated Daily Nutrient Needs: Energy Requirements Based On: Kcal/kg Weight Used for Energy Requirements: [place] Weight for Energy Calculation (kg): 70 kg Total Energy Requirements (kcals/day): 6354-6045 (25-30) Weight Used for Protein Requirements: [place] Weight in Kg Used for Protein Requirements: [...] lb) Usual Body Weight: (unable to obtain) [place] Body Weight (lbs) (Calculated): 154 lbs [place] Body Weight (Kg) (Calculated): 70 kg % [place] Body Weight (Calculated): 129.9 % BMI (kg/m2) [...] soon to determine Kristin Duffy RD Contact: *[phone] or via Secure Chat [1] atorvastatin, 20 mg, Oral, Nightly carvedilol, 3.125 mg, Oral, BID WC furosemide, 40 mg, IntraVENous, BID hydrALAZINE, 25 mg, Oral, TID iron sucrose, 200 mg, IntraVENous, q24h pantoprazole, 40 mg, Oral, qAM AC [2] Hospitalist Progress Note 04/06/[id number]: Please secure chat me for patient care issues. [phone]: Please secure chat [facility] Hospitalist for any issues. Subjective: Admit [...] ferritin, IV Venofer added Adult diet Regular @[id number]@ 24HR INTAKE/OUTPUT: Intake/Output Summary (Last 24 hours) [...] ANAHY CHARLES Mobile Relation: Daughter Preferred language: [place]ayan Drafting Instructor needed? No Westley Martinez MD Division of Hospitalist Medicine Project [employer] care My Single Point PAGER: Epic chat [1] History reviewed. No pertinent past medical history. [2] [3] atorvastatin, 20 mg, Oral, Nightly carvedilol, 3.125 mg, Oral, BID WC furosemide, 40 mg, IntraVENous, BID hydrALAZINE, 25 mg, Oral, TID iron sucrose, 200 mg, IntraVENous, q24h pantoprazole, 40 mg, Oral, qAM AC documented in this encounter [facility] 04-14-2025 Note IR US Thoracentesis 650 ml of hines yellow fluid removed. Vaseline guaze dressing applied. Patient tolerated procedure well. Patient returned to [place] patient room. [facility] 04-14-2025 Consult note Associated Order (s): IP CONSULT TO PALLIATIVE CARE Consult acknowledged. Patient previously seen by palliative care. Signed off on 04-12. Patient has had worsening status in last couple days, worsening pleural effusion. Spoke with pulmonology TRANSPLANT NURSE, Yesi today. Consult placed. Will see tomorrow s/p thoracentesis. Signed, Bela Agustin APRN, CNP, [facility]Hospice P[facility] [phone] Cosigned by Diana Marsh MD at 04/14/2025 1:38 PM EDT Images from the original note were not included. [facility], Pulmonary Medicine [address] [place], [place] [id number] [id number] 1935 Date of Admission - 04/05/2025 3:55 PM Date of evaluation - 04/12/2025 Room - B2268/[facility] B Hospital Day - 7 Consulting [...] ml Output 650 ml Net -410 ml @[id number]@ Physical Exam Physical Exam Vitals and nursing [...] function tests (PFT's) No PFT's in [facility] Sleep History No sleep study available in [facility] Radiology CXR 04/11/25: IMPRESSION: Cardiomegaly [...] or nasal pillows for comfort. Spoke with Braena from [facility] today, patient will need [...] deltoids) Fluid Accumulation: Moderate to Severe Extremities Fitness Leader Strength: Normal ward helper strength Nutrition Assessment: 89 year old man who remains admitted to [facility] with shortness of breath and [...] On: Kcal/kg Weight Used for Energy Requirements: [place] Weight for Energy Calculation (kg): 70 kg Total Energy Requirements (kcals/day): 6955-7802 (25-30) Weight Used for Protein Requirements: [place] Weight in Kg Used for Protein Requirements: [...] Body Weight: (none on file to review) [place] Body Weight (lbs) (Calculated): 154 lbs [place] Body Weight (Kg) (Calculated): 70 kg % [place] Body Weight (Calculated): 136.1 % BMI (kg/m2) [...] to determine Darleen Stubbs RDN, LDN, Contact: *[phone] Associated Order(s): INPATIENT CONSULT TO CRITICAL CARE - MEDICAL TEAM Internal Medicine: MICU Initial Consult Name: Mary Charles : 1935(89 y.o.) Date: 04/08/25 Attending: Precious Lewis MD Subjective: Chief Complaint: shortness of breath HPI: Patient is a pleasant 89 year-old male with a history of chronic HFrEF and prior remote tobacco abuse who was admitted to [facility] 04/05/25 with shortness of breath [...] Normal [] Scar/Lesion/Mass Inspection of teeth/lips/gums Dentition: [x]Platinum Teeth []Dentures Lips/Gums: [x]Intact []Lesion Present Mucosa: [x]Sunfield []Moist []Dry Neck: External Appearance Overall Appearance: [...] ABGs: Recent Labs 04/08/25 1654 PHART 7.296* HIZ1EWT 80.1* PO2ART 92.0 [id number] 38.2* [id number] Nasal Cannula (LPM) Lactic Acid: No results [...] Place garcía, strict I/O's, no indication for WINDOW SHADE ESTIMATOR at this time (would be a poor [...] care of himself. -Consider medication for mood? -Active Directory Systems Administrator support requested. -Monitor. Hx CKD III -CrCl [...] Living status: alone Work history: status: No Samaritan: No yazidism on file ROS: See palliative care ROS/ESAS below; All other systems were reviewed and are negative. [place] Symptom Assessment Score [place] Score Pain Score (if non-verbal, add .FLACC [...] Severe anemia HISTORY OF PRESENT ILLNESS: Mary Chrales is a 89 y.o. male with no [...] 2024, has a son who lives in [place] and daughter that lives close by Retired from working at [employer] for 43 years No tobacco use Denies [...] Allergies Associated Order(s): IP CONSULT TO CARDIOLOGY [facility] [place] Cardiology Consult Note Reason for Consult/Chief Complaint: [...] daily Consider palliative approach Cari Scherer MD, [facility], [facility] DATE of SERVICE: 04/06/2025 [1] History reviewed. No pertinent past medical history. [2] History reviewed. No pertinent surgical history. [3] No family history on file. [4] [5] furosemide, 40 mg, IntraVENous, BID iron sucrose, 200 mg, IntraVENous, q24h pantoprazole, 40 mg, Oral, qAM AC documented in this encounter [facility] 04-13-2025 Hospital Discharg e instructions LOURDES Cervantes CNP - 04/13/2025 12:17 PM EDT Please call [facility] at [phone] to arrange for home NIV once stable [...] ANAHY CHARLES Mobile Relation: Daughter Preferred language: Uruguayan Drafting Instructor needed? No Past Surgical History: History reviewed. [...] Minimal assistance Toileting Total assistance Feeding Independent Pool Manager Minimal assistance Med Delivery yes Wound Care [...] Discharging to Facility/ Agency Name: [facility] Address:[address] [place] [address] Phone:[phone] Dialysis Facility (if applicable) Name: Address: Dialysis Schedule: Phone: Fax: Ic Designer Custom/Occupational Therapy Asst signature: ICIAN SECTION Name: Mary Charles Prognosis: [...] Medical Center or a unit of a hospital that is not operated by or licensed by [facility] under section 5119.14 or 5160-3-15.1 5 The individual requires the level of services provided by a nursing facility for the condition for which he or she was treated in the hospital and, Physician Certification: I certify the above information and transfer of Mary Charles is necessary for the continuing treatment of the diagnosis listed and that he requires [facility] facility for less than 30 days. Update Admission H&P: No change in H&P PHYSICIAN SIGNATURE: documented in this encounter [facility] 04-09-2025 Note [facility] 04-09-2025 Procedure note Associated Ord er(s): [...] this procedure note documented in this encounter [facility] 04-09-2025 Note [facility] 04-05-2025 Note [facility] 04-05-2025 History and physical note Attending [...] Allergies documented in this encounter [facility] Health Evaluation note Diagnosis Acute congestive heart failure, unspecified heart failure type (HCC)- Primary Acute congestive heart failure, unspecified heart failure type (HCC) Anemia, unspecified type Shortness of breath Hypoxia Hypoxemia CHF (congestive heart failure), NYHA class I, acute on chronic, combined (HCC) documented in this encounter [facility] HealthEvaluation note* Diagnosis Acute congestive heart failure, unspecified heart failure type (HCC)- Primary documented in this encounter [facility] HealthEvaluation note* Diagnosis Chronic systolic heart failure (HCC)- Primary Chronic systolic heart failure Coronary artery disease involving ione coronary artery of ione heart without angina pectoris Pleural effusion Unspecified pleural effusion Acute kidney injury superimposed on chronic kidney disease (HCC) (HCC) 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 chronic kidney disease (HCC) PAC (premature atrial contraction) Supraventricular premature beats Abnormal CAT scan Other nonspecific (abnormal) findings on radiological and other examinations of body structure [facility]* Diagnosis Chronic systolic heart failure (HCC)- Primary Chronic systolic heart failure Coronary artery disease involving ione coronary artery of ione heart without angina pectoris Pleural effusion Unspecified [...] debility documented in this encounter [facility] HealthEvaluation note* Diagnosis Chronic systolic heart failure (HCC)- Primary Chronic systolic heart failure Coronary artery disease involving ione coronary artery of ione heart without angina pectoris Pleural effusion Unspecified pleural effusion Acute kidney injury superimposed on chronic kidney disease 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 chronic kidney disease (CMS/HCC) PAC (premature atrial contraction) Supraventricular premature beats Abnormal CAT scan Other nonspecific (abnormal) findings on radiological and other examinations of body structure Chronic systolic heart failure (HCC)- Primary Chronic systolic heart failure documented in this encounter [facility] HealthEvaluation note* Diagnosis Chronic systolic heart failure (HCC)- Primary Chronic systolic heart failure Coronary artery disease involving ione coronary artery of ione heart without angina pectoris Pleural effusion Unspecified pleural effusion Acute kidney injury superimposed on chronic kidney disease 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 chronic kidney disease (CMS/HCC) PAC (premature atrial contraction) Supraventricular premature beats Abnormal CAT scan Other nonspecific (abnormal) findings on radiological and other examinations of body structure Anemia due to chronic kidney disease, unspecified CKD stage- Primary documented in this encounter [facility] HealthEvaluation note* Diagnosis Chronic systolic heart failure (HCC)- Primary Chronic systolic heart failure Coronary artery disease involving ione coronary artery of ione heart without angina pectoris Pleural effusion Unspecified pleural effusion Acute kidney injury superimposed on chronic kidney disease 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 chronic kidney disease (CMS/HCC) PAC (premature atrial contraction) Supraventricular premature beats Abnormal CAT scan Other nonspecific (abnormal) findings on radiological and other examinations of body structure Symptomatic anemia- Primary documented in this encounter [facility] Chief Complaint and Reason for Visit [...] type (HCC) Procedures .. Albaro Hernández MD [address] [place] [address] Phone: tel: fax: [facility] Cardiac Progressive Care Unit [address]U [address] [place] [address] Phone: tel: Referral ID Status Reason Start [...] sedation for opioid reversal - MUST notify plant protection guard provider immediately after first dose, may give [...] Care Teams (unrecognized sec tion and content) Flat Bed Knitter Relationship Specialty Start Date End Date Aliya Tadeo RN [employer] Machine Bluer Manager 04/09/25 Flat Bed Knitter Relationship Specialty Start Date End Date Aliya Tadeo RN [employer] Machine Bluer Manager 04/09/25 Flat Bed Knitter Relationship Specialty Start Date End Date Aliya Tadeo RN Registered Nurse [employer] Machine Bluer Manager 04/09/25 Flat Bed Knitter Relationship Specialty Start Date End Date Aliya Tadeo RN Registered Nurse [employer] Machine Bluer Manager 04/09/25 Flat Bed Knitter Relationship Specialty Start Date End Date Aliya Tadeo RN Registered Nurse [place] Machine Bluer Manager 04/09/25 Flat Bed Knitter Relationship Specialty Start Date End Date Aliya Tadeo RN Registered Nurse [employer] Machine Bluer Manager 04/09/25 Flat Bed Knitter Relationship Specialty Start Date End Date Aliya Tadeo RN Registered Nurse [employer] Machine Bluer Manager 04/09/25 Flat Bed Knitter Relationship Specialty Start Date End Date Ravi Kirk, [address] [place] [id number] PCP - General Internal Medicine 07/19/25 (unrecognized sect ion and content) No Status Records FoundNo Status Records Found INFORMATION SOURCE (unrecogn ized section and content) DATE CREATED AUTHOR 07/19/2025 [facility] DATE CREATED AUTHOR 'S KIYA ATION 07/20/2025 [facility] tem [facility] FOR RECORDS PERTAINING [...] CLINICAL RECORDS. [facility] [facility]. provides no warranty or guarantee of the accuracy or completeness of information in this document.
[2025-09-08 09:03] LABS: Hematocrit 23.6 % (40-54); Hemoglobin 7.3 g/dL (13.0-16.5)
== END ==
LOC: OLS.ACH2 05:00
PROVIDERS: PCP Internal Medicine; Visit Provider Internal Medicine
DX: N18.9 Chronic kidney disease, unspecified (principal); D63.1 Anemia in chronic kidney disease
CPT/HCPCS: 36415; 85014; 85018